=== PATIENT | male | born 1955 | race Caucasian/White ===

== ENCOUNTER → 2019-02-22 | Outpatient (CLI) | payer SELFPAY ==
[2019-02-22 12:32] LABS: Absolute Lymphocyte Count 2.25 X10^3/uL (0.83-4.51); Absolute Neutrophil Count 6.7 X10^3/uL (2.0-7.7); Basophil# 0.03 X10^3/uL; Basophil% 0.3 % (0-1); Eosinophil# 0.15 X10^3/uL; Eosinophils% 1.5 % (0-5); Hematocrit 44.1 % (40-54); Hemoglobin 14.2 g/dL (13.0-16.5); Lymphocyte # 2.25 X10^3/ul (4.0); Lymphocyte % 23.2 % (19-41); Mean Corp Hgb Conc 32.2 g/dL (32-36); Mean Corpuscular Hgb 27.7 pg (27.0-32.0); Mean Corpuscular Volume 86.1 fL (80-94); Mean Platelet Vol. 10.2 fl (6.2-12.0); Monocyte# 0.54 X10^3/uL; Monocyte% 5.6 % (0-10); NRBC Flagged by Analyzer 0 % (0-5); Neutrophil # 6.67 X10^3/uL (2.7-7.7); Platelet Count 215 K/mm3 (150-450); RBC Distribution Width CV 14.1 % (11.6-14.6); RBC Distribution Width SD 43.8 fl (35.1-43.9); Red Blood Count 5.12 M/mm3 (4.6-6.2); White Blood Count 9.7 K/mm3 (4.4-11.0)
[2019-02-22 13:10] LABS: ALB/GLOB Ratio 0.8 RATIO (0.9-2.4); AST(SGOT) 37 U/L (15-37); Alanine Aminotransfer ALT/SGPT 43 U/L (16-61); Albumin, Serum 3.6 g/dL (3.2-5.0); Alkaline Phosphatase 84 U/L (45-117); Anion Gap 8 (5-15); BUN 11 mg/dL (7-18); BUN/Creat Ratio 14.7 RATIO (10-20); Calcium,Total 9.2 mg/dL (8.5-10.1); Chloride 102 mmol/L (98-107); Creatinine, Serum 0.75 mg/dL (0.70-1.30); EST Glomerular Filtration Rate 111 mL/min (>60); Est Glom Filt Rate - Afr Amer 135 mL/min (>60); Globulin 4.3 g/dL (2.2-4.2); Glucose 211 mg/dL (74-106); PSA,Total - Annual Screen 2.23 ng/mL (0.00-4.00); Potassium 3.9 mmol/L (3.5-5.1); Protein, Total 7.9 g/dL (6.4-8.2); Sodium Level 137 mmol/L (136-145); Thyroid Stim Hormone (TSH) 0.84 uIU/mL (0.358-3.74)
[2019-02-22 13:32] LABS: Hepatitis C Antibody Non-Reactive (Nonreactive)
== END | disposition home or self-care (01) ==
PROVIDERS: Family Provider Family Medicine; PCP Family Medicine; Visit Provider Family Medicine Geriatric Medicine
DX: I10 Essential (primary) hypertension (principal); E11.65 Type 2 diabetes mellitus with hyperglycemia; E23.6 Other disorders of pituitary gland; Z12.5 Encounter for screening for malignant neoplasm of prostate; Z13.89 Encounter for screening for other disorder
CPT/HCPCS: 36415; 80053; 84153; 84403; 84443; 85025; 86803; G0103

== ENCOUNTER 2020-10-01 17:46 | Observation (INO) | payer MEDICARE, OTHER, SELFPAY ==
[2020-10-01] VITALS (9 sets, daily range): BP systolic 145–193; BP diastolic 81–103; PULSE 95–111; RESP 16–18; TEMP 36.6–36.9; O2SAT 94–97; BMI 61.7; BMI 60.7
--- NOTE | 2020-10-01 17:54 | EKG12_ITS ---
Test Reason : PALPATATIONS Blood Pressure : / mmHG Vent. Rate : 113 BPM Atrial Rate : 100 BPM P-R Int : 000 ms QRS Dur : 098 ms QT Int : 350 ms P-R-T Axes : 000 027 026 degrees QTc Int : 480 ms Atrial fibrillation Abnormal ECG Confirmed by KEMI STERLING, DEMI ([id number]), editor producer KEVEN MOORE ([id number]) on 10/03/2020 11:48:58 AM Referred By: SUMANTH/CLYDE Confirmed By:DEMI MCMULLEN MD
--- NOTE | 2020-10-01 18:06 | ED.DCSUM_ITS ---
History of Present Illness Chief Complaint: Palpitations Informant: Patient Onset: Days Maximum Severity: Mild Narrative: The patient prevents from his doctor's office with A. 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 fib poor control of hypertension and diabetes he was sent to a PCP who he had not seen in some time that was new seeing that physician today he was found with the above and sent to the emergency department. Patient indicates his COPD CPAP use has been stable, he indicates he has hypertension diabetes he tries to control himself, the A. 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 Past Medical History - Allergies and Home Meds Allergies/Adverse Reactions: Allergies ampicillin Allergy (Verified 10/01/20 17:49) Unknown Penicillins Allergy (Verified 10/01/20 17:49) Unknown Primary Care Physician: Dillan Beach MD [NON-STAFF] - Past Medical History: - - Hypertension diabetes COPD Surgical History: noncontributory Smoking Status: Former smoker - Family History Maternal Family History: Reports: No pertinent history Paternal Family History: Reports: Cancer, No pertinent history Review of Systems General: Denies: Chills, Fever, Sweats Eyes: Denies: Visual changes - bilaterally, Diplopia ENT: Denies: Rhinorrhea, Sore throat Cardiovascular: Reports: Palpitations. Denies: Chest pain Respiratory: Reports: Dyspnea. Denies: Cough, Dyspnea on exertion Gastrointestinal: Denies: Abdominal pain, Nausea, Vomiting, Diarrhea, Melena, Hematochezia Genitourinary: Denies: Dysuria, Hematuria, Frequency Musculoskeletal: Reports: Swelling. Denies: Back pain, Extremity Pain Skin: Denies: Rash, Wounds Neurological: Denies: Headache, Weakness, Numbness Physical Exam Vital Signs/Narrative: Vital Signs Temp Pulse Resp BP Pulse Ox 10/01/20 17:59 102 H 18 172/83 H 95 10/01/20 17:49 98 F 111 H 16 161/101 H 94 General: Well nourished, Well developed, No Acute Distress Head: Normocephalic, Atraumatic Eyes: Perrl, EOMI ENT: Moist mucous membranes, No rhinorrhea Neck: Supple, Nontender Cardiovascular: No murmurs, Irregular, Tachycardia Respiratory: No distress, CTA bilaterally, Chest nontender Abdomen: Soft, Nontender, Nondistended, Normal bowel sounds Back: Nontender, Normal Inspection Extremities: Nontender, Edema Skin: Normal color, No rash Neurological: Alert, Oriented x3, Cranial nerves II-XII grossly intact, Normal Strength, Normal Sensation Psychological: Normal affect, Normal Mood Diagnostic/Tx/Re-eval - Medical Decision Making Patient is a very large gentleman, his BMI is about 62, he is resting company in the bed he has an A. fib RVR 130 on the monitor, his EKG shows A. fib RVR rate 115 s no acute injury of in all the above ED evaluation rate control The patient's ED screening evaluation is generally unremarkable see all those results, 1 view chest x-ray to my review shows some cardiomegaly no acute other abnormalities, just radiology generally concur see those reports Has been treated with does have he remains hemodynamically stable at this time will contact the hospitalist for admission Admit stable Final impression A. fib RVR congestive heart failure peripheral edema ED Disposition - Plan for ED Patient: Diagnosis: A. fib RVR, CHF peripheral edema Referrals: Dillan Beach MD [NON-STAFF] -
[2020-10-01] MEDS: Aspirin 81 MG TAB.CHEW 324 MG PO (18:19)
[2020-10-01] MEDS: dilTIAZem 25 MG/5 ML Vial 20 MG IV BOLUS (18:20)
--- NOTE | 2020-10-01 18:30 | RAD_ITS ---
STUDY: X-RAY CHEST REASON FOR EXAM: Male, 64 years old. Chest pain TECHNIQUE: Frontal view of the chest COMPARISON: None. FINDINGS: The lungs are clear. There are no pleural effusions. There is no pneumothorax. The heart is normal in size. The visualized osseous structures are within normal limits. RAD/Chest 1 View (Portable) IMPRESSION: No acute thoracic pathology. Electronically Signed: Albert Patton MD at 19:08 EDT Tel , Service support ,
[2020-10-01 18:32] LABS: Absolute Lymphocyte Count 1.66 X10^3/uL (0.83-4.51); Absolute Neutrophil Count 4.5 X10^3/uL (2.0-7.7); Basophil# 0.04 X10^3/uL; Basophil% 0.6 % (0-1); Eosinophils% 1.5 % (0-5); Hematocrit 44.1 % (40-54); Hemoglobin 13.8 g/dL (13.0-16.5); Lymphocyte # 1.66 X10^3/ul (0.83-4.51); Lymphocyte % 24.1 % (19-41); Mean Corp Hgb Conc 31.3 g/dL (32-36); Mean Corpuscular Hgb 26.4 pg (27.0-32.0); Mean Corpuscular Volume 84.5 fL (80-94); Mean Platelet Vol. 10.3 fl (6.2-12.0); Monocyte# 0.55 X10^3/uL; NRBC Flagged by Analyzer 0 % (0-5); Neutrophil % 65.2 % (47-70); Platelet Count 167 K/mm3 (150-450); RBC Distribution Width CV 14.7 % (11.6-14.6); RBC Distribution Width SD 44.3 fl (35.1-43.9); Red Blood Count 5.22 M/mm3 (4.6-6.2); White Blood Count 6.9 K/mm3 (4.4-11.0)
[2020-10-01 18:46] LABS: Anion Gap 4 (5-15); BUN 17 mg/dL (7-18); BUN/Creat Ratio 18.2 RATIO (10-20); Calcium,Total 8.9 mg/dL (8.5-10.1); Chloride 101 mmol/L (98-107); Creatinine, Serum 0.94 mg/dL (0.70-1.30); EST Glomerular Filtration Rate 86 mL/min (>60); Est Glom Filt Rate - Afr Amer 104 mL/min (>60); Glucose 314 mg/dL (74-106); Potassium 4.2 mmol/L (3.5-5.1); Sodium Level 136 mmol/L (136-145)
[2020-10-01 18:52] LABS: BNP,B-Type NATRIURETIC PEPTIDE 30.5 pg/mL (0-100)
--- NOTE | 2020-10-01 19:24 | PCM.HP.STD ---
Problem List (1) Afib Status: Acute (2) Bilateral leg edema Status: Chronic (3) Dyspnea on exertion Status: Chronic (4) Pickwickian syndrome Status: Chronic History of Present Illness Date of Admission: 10/01/20 Chief Complaint: Irregular heartbeat The patient is a 64 year old M with a significant medical history of obstructive sleep apnea on BiPAP; hypertension; diabetes mellitus with neuropathy who presents to the ED with irregular heart rhythm found on new PCPs visit on the same day of presentation. No further information is available on this irregularly heart rhythm as it was incidentally identified by PCP. He denies palpitations. Also patient complains of shortness of breath that has been going on for months to years. This shortness of breath is with mild exertion. He reports a bilateral leg edema that has also been going on for months and years. He wears compression stockings for his bilateral leg edema. For the last 2 days he has not been wearing stockings so that he could show his legs to physicians. He has been using BiPAP to sleep and he denies orthopnea. He reported lying on his side to sleep. He denies paroxysmal nocturnal dyspnea. He has been waking up in the middle nines but only to urinate. He reported that per weight taking at his sleep physician's office office he has lost about 22 pounds in about 2 years. Patient moved out of town and returned recently. He went to see Dr. Espinosa load manager/sleep physician; who made him see a new PCP in the city. On this PCP visit was when this irregularly heart rhythm was identified. He reported that he has not been taking his medications for some time now since he did not have a PCP. He report that Dr. Espinosa resumed prescription of metoprolol and losartan for him. At the time of presentation he had taken only metoprolol. Past Medical History Past Medical History (Chronic Problems): Chronic Problems (Last Updated 10/01/20 @ 20:[address] Braden Zapata MD) Bilateral leg edema (Chronic) Dyspnea on exertion (Chronic) Pickwickian syndrome (Chronic) Medical History: Medical History (Last Updated 10/01/20 @ 20:[address] Braden Zapata MD) HTN (hypertension) I10 Allergies ampicillin Allergy (Verified 10/01/20 17:49) Unknown Penicillins Allergy (Verified 10/01/20 17:49) Unknown Home Medications: Ambulatory Orders Medication Instructions Recorded Losartan Potassium [Cozaar] 100 mg PO DAILY 04/04/14 metFORMIN HCl [Glucophage] 1,000 mg PO BIDCM 04/04/14 Amlodipine [Norvasc] 5 mg PO DAILY 10/01/20 Calcium Carbonate/Magnesium Ox 1 tablet PO DAILY 10/01/20 [Super Severo-Mag Tablet] Gabapentin 300 mg PO DAILY 10/01/20 Metoprolol Succinate [Toprol Xl] 25 mg PO DAILY 10/01/20 Multivit-Min/FA/Lycopen/Lutein 1 tablet PO DAILY 10/01/20 [Centrum Silver Men Tablet] Pioglitazone [Actos] 45 mg PO DAILY 10/01/20 Pyridoxine HCl (Vitamin B6) 100 mg PO DAILY 10/01/20 [Vitamin B-6] Tylenol 1,500 - 1,950 mg PO TID PRN PRN 10/01/20 Surgical History: no surgical history Smoking Status: Former smoker - *Family History Maternal History Items: Diabetes, Heart Disease, - - Osteoarthritis Paternal History Items: Cancer, Heart Disease Review of Systems Constitutional: Denies: Chills, Fever, Weight Change HEENT: Denies: Head Aches, Sinus Congestion, Sinus Drainage Cardiovascular: Reports: Edema. Denies: Chest Pain, Palpitations Respiratory: Reports: Shortness of breath upon exertion. Denies: Cough, Shortness of breath at rest, Sputum production Gastrointestinal: Denies: Abdominal Pain, Nausea, Vomiting Genitourinary: Denies: Dysuria Musculoskeletal: Denies: Joint Pain, Joint Tenderness Skin: Denies: Rash, Wounds Neurological: Denies: Numbness, Tingling, Focal weakness Psychiatric: Denies: Anxiety, Depression, Homicidal Ideations, Suicidal Ideations Hematologic/ Lymphatic: Denies: Easy Bruising, Easy Bleeding VTE Information - Inpt Only VTE Present on Admission: No VTE Mechan Device Prophylaxis: None VTE Pharm Prophylaxis ordered?: No Reason prophylaxis not ordered:: Treatment Not Indicated - Started on lovenox for Afib Patient Problems: Active and Suspected Problems (Last Updated 10/01/20 @ 20:[address] Braden Zapata MD) Afib (Acute) - Physical Exam Vitals/I&O's: Vital Signs Temp Pulse Resp BP Pulse Ox 98 F 100 18 172/83 H 94 10/01/20 17:49 10/01/20 18:35 10/01/20 17:59 10/01/20 17:59 10/01/20 18:22 Oxygen Delivery Method Room Air Weight: 184.159 kg Body Mass Index (BMI) 61.7 General: Alert, Oriented x3, Cooperative HEENT: Atraumatic, PERRLA, EOMI, Normocephalic Neck: Supple, No JVD, Negative Carotid Bruits Lungs: Clear to auscultation, Normal air movement Cardiovascular: Normal S1, Normal S2, No murmurs, Irregular Rate Abdomen: Bowel Sounds Present, Soft, Non Tender Extremities: Capillary Refill Less than 3 Seconds, Edema - Bilateral legs Skin: No rashes, No breakdown Musculoskeletal: No Tenderness to Palpation of Joints or Extremities Neurological: Cranial nerves II-XII grossly intact Psych/Mental Status: Normal Affect, Appropriate Laboratory Results 10/01/20 18:10: WBC 6.9, RBC 5.22, Hgb 13.8, Hct 44.1, MCV 84.5, MCH 26.4 L, MCHC 31.3 L, RDW Std Deviation 44.3 H, RDW Coeff of Jada 14.7 H, Plt Count 167, MPV 10.3, Immature Gran % (Auto) 0.600, Neut % (Auto) 65.2, Lymph % (Auto) 24.1, Oldham % (Auto) 8.0, Eos % (Auto) 1.5, Baso % (Auto) 0.6, Absolute Neuts (auto) 4.5, Absolute Lymphs (auto) 1.66, Nucleated RBC % 0 10/01/20 18:10: Sodium 136, Potassium 4.2, Chloride 101, Carbon Dioxide 31.0, Anion Gap 4 L, BUN 17, Creatinine 0.94, Estim Creat Clear Calc 75.80, Est GFR (MDRD) Af Amer 104, Est GFR (MDRD) Non-Af 86, BUN/Creatinine Ratio 18.2, Glucose 314 H, Calcium 8.9, Troponin I < 0.015 10/01/20 18:10: B-Natriuretic Peptide 30.5 Assessment/Plan All Active Problems (Last Updated 10/01/20 @ 20:[address] Braden Zapata MD) Afib (Acute) The patient is a 64 year old M with a significant medical history of obstructive sleep apnea on BiPAP; hypertension; diabetes mellitus with neuropathy who presents emergency to the emergency department with irregular heart rhythm found on new PCPs visit on the same day of presentation; and with chronic dyspnea on exertion; and chronic bilateral leg edema for which he wears compression stockings. Atrial fibrillation Place on PCU on telemetry Inital Cardiac enzymes was negative. Obtain echo [id number] 2 score at least 3 points. Lovenox 1 mg per kilogram subcutaneous every 12 hours Received Cardizem 20 mg bolus IV push x1 at emergency department. Will order as needed metoprolol IV for heart rate of more than 120. Will adjust home metoprolol recently prescribed. Started taking metoprolol succinate 25 mg daily. Will change to metoprolol tartrate 25 mg twice daily. Potassium level was normal. Will check magnesium. Radiologist impression of chest x-ray: No acute thoracic pathology. Actual checks x-ray image was independently interpreted. Chest x-ray with large cardiac silhouette. No infiltrates noted Dyspnea on exertion/bilateral edema/pickwickian syndrome/venous stasis. Lasix 40 mg IV twice daily ordered. Potassium supplementation was on Lasix ordered. Matthew wrap to bilateral legs. Elevate bilateral legs. CMP ordered. Diabetes mellitus with neuropathy Patient with hyperglycemia on presentation Patient has not been on his home diabetic regimen for a while. Will start patient on Lantus insulin; prandial short acting insulin and correction scale short acting insulin. Accu-Chek q. ACH is ordered. Cardiac calorie controlled diet. Hypertension Blood pressure is not within goal Metoprolol as above. He reports receiving a new prescription for losartan that he has not started. Losartan resumed for hypertension and diabetes. Trend blood pressure and adjust blood pressure medications. Morbid Obesity: BMI of 60.7 kg/m?. Complicates care. Lifestyle medication recommended. Obstructive sleep apnea: BiPAP continued DVT prophylaxis On therapeutic dose of Lovenox for atrial fibrillation OBSV E&M: [id number] Initial observation care L3
--- NOTE | 2020-10-01 19:56 | ECHOCS_ITS ---
Reason For Study: AFIB/FLUTTER Procedure This was a 2D Doppler, Color Flow transthoracic echocardiogram. The exam was of poor technical quality due to body habitus. Contrast injection was performed. Exam performed portable in patient room. Left Ventricle Normal LV size. Left ventricular systolic function is normal. The estimated ejection fraction is 55 %. No regional wall motion abnormalities noted. Right Ventricle Normal RV size. Normal systolic function. Atria The left atrium is severely enlarged. The right atrium is moderately enlarged. Tricuspid Valve Normal tricuspid valve. Mild (1+) tricuspid valve insufficiency. Pulmonary artery systolic pressure is 25 mmHg. Great Vessels Normal aortic root. The pulmonary artery is normal size. Normal inferior vena cava. Pericardium/Pleural No pericardial effusion. Medication Diluted definity 5.0ml given slow IV push to enhance endocardial definition. MMode/2D Measurements & Calculations Ao root diam: 3.5 cm LAV(MOD-bp): 131.3 ml LA A4 area: 34.2 cm2 LAV(MOD-bp) Indexed: 47.9 ml/m2 LAV(MOD-sp2): 127.8 ml LAV(MOD-sp4): 125.4 ml LA dimension(2D): 5.9 cm RA A4 area: 28.9 cm2 Time Measurements MV dec time: 0.22 sec Doppler Measurements & Calculations MV E max diane: 103.1 cm/sec Ao V2 max: 146.8 cm/sec LV V1 max: 74.8 cm/sec Ao max P.6 mmHg LV V1 max P.3 mmHg TR max diane: 232.9 cm/sec TR max P.9 mmHg ECHO/Echo Complete W/ Contrast Interpretation Summary Normal LV size. Left ventricular systolic function is normal. The estimated ejection fraction is 55 %. The left atrium is severely enlarged. The right atrium is moderately enlarged. Contrast injection was performed. Ordering Physician: Braden Zapata Referring Physician: MOLLY SCHAEFFER Performed By: Selma Arce, KATE, RVT
[2020-10-01] MEDS: Metoprolol Tartrate 25 MG Tablet PO (21:37)
[2020-10-01] MEDS: Furosemide 40 MG/4 ML Vial IV (21:37)
[2020-10-01] MEDS: 0.9% Saline Lock 10 ML Syringe IV (21:37)
[2020-10-01] MEDS: Insulin Lispro 100 UNIT/ML INSULN.PEN SC (21:38)
[2020-10-01 21:40] LABS: Bedside Glucose 287 mg/dL (70-110)
[2020-10-01] MEDS: Enoxaparin 100 MG/ML Syringe 180 MG SC (21:42)
[2020-10-02] VITALS (8 sets, daily range): BP systolic 161–166; BP diastolic 68–86; PULSE 77–98; RESP 15–18; TEMP 36.6–36.8; O2SAT 95–100
[2020-10-02 05:56] LABS: ALB/GLOB Ratio 0.8 RATIO (0.9-2.4); AST(SGOT) 26 U/L (15-37); Alanine Aminotransfer ALT/SGPT 33 U/L (16-61); Albumin, Serum 2.9 g/dL (3.2-5.0); Alkaline Phosphatase 109 U/L (45-117); Anion Gap 4 (5-15); BUN 12 mg/dL (7-18); BUN/Creat Ratio 17.6 RATIO (10-20); Calcium,Total 8.5 mg/dL (8.5-10.1); Chloride 101 mmol/L (98-107); Creatinine, Serum 0.68 mg/dL (0.70-1.30); EST Glomerular Filtration Rate 124 mL/min (>60); Est Glom Filt Rate - Afr Amer 150 mL/min (>60); Estimated Creatinine Clearance 104.78 ml/min; Globulin 3.8 g/dL (2.2-4.2); Glucose 269 mg/dL (74-106); Magnesium 1.8 mg/dL (1.6-2.6); Potassium 3.9 mmol/L (3.5-5.1); Protein, Total 6.7 g/dL (6.4-8.2); Sodium Level 136 mmol/L (136-145); Thyroid Stim Hormone (TSH) 1.04 uIU/mL (0.358-3.74)
[2020-10-02] MEDS: Insulin Lispro 100 UNIT/ML INSULN.PEN SC ×4 (08:49→11:26)
[2020-10-02 08:56] LABS: Bedside Glucose 265 mg/dL (70-110)
[2020-10-02] MEDS: Potassium Chloride Oral Tablet 20 MEQ 40 MEQ PO (09:22)
[2020-10-02] MEDS: Multivitamins,Ther W-Minerals Tablet 1 TABLET PO (09:22)
[2020-10-02] MEDS: Losartan Potassium 100 MG Tablet PO (09:22)
[2020-10-02] MEDS: Enoxaparin 100 MG/ML Syringe 180 MG SC (09:22)
[2020-10-02] MEDS: Pyridoxine HCl 100 MG Tablet PO (09:22)
[2020-10-02] MEDS: Metoprolol Tartrate 25 MG Tablet PO (09:22)
[2020-10-02] MEDS: Calcium Carbonate 500 MG Tablet PO (09:31)
[2020-10-02] MEDS: Furosemide 40 MG/4 ML Vial IV (09:31)
[2020-10-02] MEDS: 0.9% Saline Lock 10 ML Syringe IV (09:31)
[2020-10-02] MEDS: Metoprolol(XL)Succ 25 MG Tablet PO (11:21)
[2020-10-02 11:30] LABS: Bedside Glucose 342 mg/dL (70-110)
--- NOTE | 2020-10-02 12:38 | PCM.PN.HOSP ---
Patient Problems: Active and Suspected Problems (Last Updated 10/01/20 @ 20:[address] Braden Zapata MD) Afib (Acute) Subjective: Patient is a 64-year-old male who is lying in bed chronically short of breath, alert and oriented 3. Patient endorses chronic shortness of breath as well as chronic leg swelling. Patient usually wears compression stockings at home however stopped wearing them prior to admission to demonstrate the severity of his leg congestion. Patient denies chest pain, palpitations, fever, chills, N/V/D. Vitals/I&O's: Vital Signs Temp Pulse Resp BP Pulse Ox 98.2 F 97 18 166/86 H 95 10/02/20 09:20 10/02/20 11:21 10/02/20 09:20 10/02/20 09:20 10/02/20 09:20 Oxygen Delivery Method Room Air Weight: 401 lb 14.443 oz Body Mass Index (BMI) 60.7 Intake and Output for Last 24 Hours 09/30/20 10/01/20 10/02/20 23:59 23:59 23:59 Intake Total 360 / 360 Balance 360 / 360 General: Alert, Oriented x3, Cooperative HEENT: Atraumatic, PERRLA, EOMI, Normocephalic Neck: Supple, No JVD, Negative Carotid Bruits Lungs: Diminished, Short of Breath Cardiovascular: Regular rate, No murmurs Abdomen: Distended, Obese, Hernia - Umbilical hernia noted Extremities: Diminished Peripheral Pulses, Edema Skin: - - Discoloration and dryness of the feet noted bilaterally Musculoskeletal: No Tenderness to Palpation of Joints or Extremities Neurological: Cranial nerves II-XII grossly intact Psych/Mental Status: Normal Affect, Appropriate Laboratory Results 10/01/20 18:10: WBC 6.9, RBC 5.22, Hgb 13.8, Hct 44.1, MCV 84.5, MCH 26.4 L, MCHC 31.3 L, RDW Std Deviation 44.3 H, RDW Coeff of Jada 14.7 H, Plt Count 167, MPV 10.3, Immature Gran % (Auto) 0.600, Neut % (Auto) 65.2, Lymph % (Auto) 24.1, Dundy % (Auto) 8.0, Eos % (Auto) 1.5, Baso % (Auto) 0.6, Absolute Neuts (auto) 4.5, Absolute Lymphs (auto) 1.66, Nucleated RBC % 0 10/01/20 18:10: Sodium 136, Potassium 4.2, Chloride 101, Carbon Dioxide 31.0, Anion Gap 4 L, BUN 17, Creatinine 0.94, Estim Creat Clear Calc 75.80, Est GFR (MDRD) Af Amer 104, Est GFR (MDRD) Non-Af 86, BUN/Creatinine Ratio 18.2, Glucose 314 H, Calcium 8.9, Troponin I < 0.015 10/01/20 18:10: B-Natriuretic Peptide 30.5 10/01/20 21:33: POC Glucose 287 H 10/02/20 05:06: Sodium 136, Potassium 3.9, Chloride 101, Carbon Dioxide 31.0, Anion Gap 4 L, BUN 12, Creatinine 0.68 L, Estim Creat Clear Calc 104.78, Est GFR (MDRD) Af Amer 150, Est GFR (MDRD) Non-Af 124, BUN/Creatinine Ratio 17.6, Glucose 269 H, Calcium 8.5, Magnesium 1.8, Total Bilirubin 0.50, AST 26, ALT 33, Alkaline Phosphatase 109, Total Protein 6.7, Albumin 2.9 L, Globulin 3.8, Albumin/Globulin Ratio 0.8 L, TSH 1.04 10/02/20 08:48: POC Glucose 265 H 10/02/20 11:25: POC Glucose 342 H Current Medications Acetaminophen (Acetaminophen 325 Mg Tablet) 650 mg PO Q6H PRN PRN PRN Reason: Pain Score 1-10/Temp > 100.7 F Calcium Carbonate (Calcium Carbonate 500 Mg Tablet) 500 mg PO DAILYCM [facility] Last Admin: 10/02/20 09:31 Dose: 500 mg Documented by: Dextrose (Dextrose 50%-Water 25 Gm/50 Ml Disp.Syrin) 0 gm IV X1 PRN; Protocol PRN Reason: Hypoglycemia Enoxaparin Sodium (Enoxaparin 100 Mg/Ml Syringe) 180 mg SC Q12 [facility] Last Admin: 10/02/20 09:22 Dose: 180 mg Documented by: Furosemide (Furosemide 40 Mg/4 Ml Vial) 40 mg IV BID@1000,1800 [facility] Last Admin: 10/02/20 09:31 Dose: 40 mg Documented by: Glucagon (Glucagon 1 Mg/Ml Syringe) 1 mg IM .X1 PRN PRN Reason: Hypoglycemia Insulin Glargine (Insulin Glargine 100 Units/Ml Pen) 20 units SC QHS [facility] Last Admin: 10/01/20 21:37 Dose: 20 units Documented by: Insulin Human Lispro (Insulin Lispro 100 Unit/Ml Insuln.Pen) 0 unit SC ACHS [facility]; Protocol Last Admin: 10/02/20 11:25 Dose: 8 units Documented by: Insulin Human Lispro (Insulin Lispro 100 Unit/Ml Insuln.Pen) 5 unit SC BREAKFAST [facility] Last Admin: 10/02/20 08:49 Dose: 5 u Documented by: Insulin Human Lispro (Insulin Lispro 100 Unit/Ml Insuln.Pen) 5 unit SC DINNER [facility] Insulin Human Lispro (Insulin Lispro 100 Unit/Ml Insuln.Pen) 5 unit SC LUNCH [facility] Last Admin: 10/02/20 11:26 Dose: 5 u Documented by: Losartan Potassium (Losartan Potassium 100 Mg Tablet) 100 mg PO DAILY [facility] Last Admin: 10/02/20 09:22 Dose: 100 mg Documented by: Metoprolol Succinate (Metoprolol(Xl)Succ 50 Mg Tablet) 50 mg PO DAILY [facility] Metoprolol Tartrate (Metoprolol Tartrate 5 Mg/5 Ml Vial) 5 mg IV Q5M PRN PRN Reason: HR > 120 Multivitamins/Minerals (Multivitamins,Ther W-Minerals Tablet) [facility] Admin: 10/02/20 09:22 Dose: 1 tablet Documented by: Ondansetron HCl (Ondansetron 4 Mg/2 Ml Vial) 4 mg IV Q8H PRN PRN PRN Reason: NAUSEA/VOMITING Potassium Chloride (Potassium Chloride Oral Tablet 20 Meq) [facility] Last Admin: 10/02/20 09:22 Dose: 40 meq Documented by: Pyridoxine HCl (Pyridoxine Hcl 100 Mg Tablet) 100 mg PO DAILY [facility] Last Admin: 10/02/20 09:22 Dose: 100 mg Documented by: Senna/Docusate Sodium (Senna/Docusate Sodium 1 Tablet) 2 tablet PO BID PRN PRN PRN Reason: Constipation Sodium Chloride (0.9% Saline Lock 10 Ml Syringe) 10 - 40 ml IV UD PRN PRN Reason: SALINE FLUSH Last Admin: 10/02/20 09:31 Dose: 10 ml Documented by: STROKE Vital Signs/Narrative: Vital Signs Temp Pulse Resp BP Pulse Ox 10/02/20 11:21 97 10/02/20 09:22 98 10/02/20 09:20 98.2 F 98 18 166/86 H 95 Medical Necessity - Tobacco Use Smoking Status: Never smoker Tobacco Use: Non-smoker Assessment/Plan All Active Problems (Last Updated 10/01/20 @ 20:[address] Braden Zapata MD) Afib (Acute) Patient is a 64-year-old male who presented to the ED on 10/01/2020 on referral from his PCP due to new onset A. fib . Patient also displayed shortness of breath and leg swelling that are chronic for the patient. Echocardiogram obtained today revealed normal left ventricular size, normal left ventricular systolic function, an estimated EF of 55%, severely enlarged left atrium and moderately enlarged right atrium. 1) A-Fib (new onset) Echo results above. Metoprolol succinate 25 mg given today, 50mg will be initiated tomorrow. [id number] 2 score 3 points, not on anticoagulation at home, currently being anticoagulated on Lovenox. 2) Dyspnea on exertion/bilateral edema Continues to complain of shortness of breath and bilateral lower extremity swelling. Continue on Lasix 40 mg IV twice daily. Matthew wraps applied to legs bilaterally. BNP and troponins not elevated. Chest x-ray demonstrates enlarged cardiac silhouette. 3) DM2 w/ Neuropathy POC glucose 342. Not compliant with home diabetic regiment. Continue on Lantus insulin, prandial short acting insulin and correction scale short acting insulin. Continue Accu-Cheks. Calorie controlled diet ordered. 4) Hypertension Continue on metoprolol and losartan. BP stable from admission. Continue to monitor. 5) Obesity BMI; 60.7 kg/m?. Lifestyle modifications recommended DVT prophylaxis - SD Lovenox Patient seen by Bernabe Adams PA-C, under the supervision of Dr. Spain.
--- NOTE | 2020-10-02 13:41 | DCINST_ITS ---
- Discharge Diagnoses Current Active Problems: Current Active and Chronic Problems (Last Updated 10/01/20 @ 20:[address] Braden Zapata MD) Afib (Acute) Bilateral leg edema (Chronic) Dyspnea on exertion (Chronic) Pickwickian syndrome (Chronic) You will use the following diet at home:: No restrictions Your food should be the consistency of: Regular Your liquids should be the consistency of: Regular/Thin Discharge Activity: Return to Normal Activity Allergies/Adverse Reactions: Allergies ampicillin Allergy (Verified 10/01/20 17:49) Unknown Penicillins Allergy (Verified 10/01/20 17:49) Unknown Medications to take at Discharge Losartan Potassium [Cozaar] 100 mg PO DAILY 04/04/14 metFORMIN HCl [Glucophage] 1,000 mg PO BIDCM 04/04/14 Amlodipine [Norvasc] 5 mg PO DAILY 10/01/20 Calcium Carbonate/Magnesium Ox [Super Severo-Mag Tablet] 1 tablet PO DAILY 10/01/20 Gabapentin 300 mg PO DAILY 10/01/20 Multivit-Min/FA/Lycopen/Lutein [Centrum Silver Men Tablet] 1 tablet PO DAILY 10/01/20 Pioglitazone [Actos] 45 mg PO DAILY 10/01/20 Pyridoxine HCl (Vitamin B6) [Vitamin B-6] 100 mg PO DAILY 10/01/20 Tylenol 1,500 - 1,950 mg PO TID PRN PRN 10/01/20 Apixaban [Eliquis] 5 mg PO BID #30 tablet 10/02/20 Metoprolol(XL)Succ [Toprol Xl (Beta Sal)] 50 mg PO DAILY #60 tab 10/02/20 The following prescriptions were given: Apixaban [Eliquis] 5 mg PO BID #30 tablet Transmission Status: Pending to [facility]/pharmacy #[id number] Metoprolol(XL)Succ [Toprol Xl (Beta Sal)] 50 mg PO DAILY #60 tab Transmission Status: Pending to [facility]/pharmacy #[id number] Primary Care Physician: Dillan Beach MD [NON-STAFF] - Please follow up with your Primary Care Physician in: Within the next 2 weeks Test Results: Test results from this visit will be discussed in further detail at your follow- up appointment, if applicable. Please Follow Up With: [facility] - [phone] When: Within the next 2 weeks Proposed Discharge Date: 10/02/20
--- NOTE | 2020-10-02 13:43 | PCM.DC.SUM ---
<Molly Adams - Last Filed: 10/02/20 13:43> Discharge Date and Diagnosis - Problem List Patient Problems: Active and Suspected Problems (Last Updated 10/01/20 @ 20:[address] Braden Zapata MD) Afib (Acute) Date of Admission: 10/01/20 Date of Discharge: 10/02/20 - Primary Discharge Diagnosis Acute Problems: Active Problems (Last Updated 10/01/20 @ 20:[address] Braden Zapata MD) Afib (Acute) - Secondary Discharge Diagnosis Chronic Problems: Chronic Problems (Last Updated 10/01/20 @ 20:[address] Braden Zapata MD) Bilateral leg edema (Chronic) Dyspnea on exertion (Chronic) Pickwickian syndrome (Chronic) Hospital Course and Treatment Imaging Results: Clinical Impression(s) from Imaging Studies Chest X-Ray 10/01/20 18:30 IMPRESSION: No acute thoracic pathology. Electronically Signed: Albert Patton MD at 19:08 EDT Tel , Service support , Echocardiogram 10/01/20 19:56 Interpretation Summary Normal LV size. Left ventricular systolic function is normal. The estimated ejection fraction is 55 %. The left atrium is severely enlarged. The right atrium is moderately enlarged. Contrast injection was performed. Ordering Physician: Braden Zapata Referring Physician: MOLLY SCHAEFFER Performed By: Selma Arce, KATE, RVT Procedures: 2-D Echocardiogram Summary of Care Provided: Patient is a 64-year-old male who presented to the ED on 10/01/2020 on referral from his PCP due to new onset A. fib . Patient also displayed shortness of breath and leg swelling that are chronic for the patient. Echocardiogram obtained today revealed normal left ventricular size, normal left ventricular systolic function, an estimated EF of 55%, severely enlarged left atrium and moderately enlarged right atrium. Patient can follow-up with cardiology as an outpatient. Patient will be discharged today. 1) A-Fib (new onset) Echo results above. Metoprolol succinate 25 mg given today, 50mg will be initiated on discharge. [id number] 2 score 3 points, not on anticoagulation at home, will be initiated on Eliquis 5 mg p.o. twice daily at discharge. 2) Dyspnea on exertion/bilateral edema Continues to complain of shortness of breath and bilateral lower extremity swelling. Matthew wraps applied to legs bilaterally. BNP and troponins not elevated. Chest x-ray demonstrates enlarged cardiac silhouette. Follow-up with cardiology as an outpatient. 3) DM2 w/ Neuropathy POC glucose 342. Not compliant with home diabetic regiment. Encourage compliance with home Metformin on discharge. Gabapentin continued on discharge. Follow-up with primary care provider within the next 2 weeks. 4) Hypertension Continue home regimen of metoprolol and losartan. 5) Obesity BMI; 60.7 kg/m?. Lifestyle modifications recommended Patient seen by Molly Adams PA-C, under the supervision of Dr. Spain. Patient Problems: Active and Suspected Problems (Last Updated 10/01/20 @ 20:[address] Braden Zapata MD) Afib (Acute) Subjective: Patient is a 64-year-old male who is lying in bed chronically short of breath, alert and oriented 3. Patient endorses chronic shortness of breath as well as chronic leg swelling. Patient usually wears compression stockings at home however stopped wearing them prior to admission to demonstrate the severity of his leg congestion. Patient denies chest pain, palpitations, fever, chills, N/V/D. Objective: Clinical Impression(s) from Imaging Studies Chest X-Ray 10/01/20 18:30 IMPRESSION: No acute thoracic pathology. Electronically Signed: Albert Patton MD at 19:08 EDT Tel , Service support , Echocardiogram 10/01/20 19:56 Interpretation Summary Normal LV size. Left ventricular systolic function is normal. The estimated ejection fraction is 55 %. The left atrium is severely enlarged. The right atrium is moderately enlarged. Contrast injection was performed. Ordering Physician: Braden Zapata Referring Physician: MOLLY SCHAEFFER Performed By: Selma Arce, KATE, RVT - Physical Exam Vitals/I&O's: Vital Signs Temp Pulse Resp BP Pulse Ox 98.2 F 97 18 166/86 H 95 10/02/20 09:20 10/02/20 11:21 10/02/20 09:20 10/02/20 09:20 10/02/20 09:20 Oxygen Delivery Method Room Air Weight: 401 lb 14.443 oz Body Mass Index (BMI) 60.7 Intake and Output for Last 24 Hours 09/30/20 10/01/20 10/02/20 23:59 23:59 23:59 Intake Total 360 / 360 640 / 640 Balance 360 / 360 640 / 640 General: Alert, Oriented x3, Cooperative HEENT: Atraumatic, PERRLA, EOMI, Normocephalic Neck: Supple, No JVD, Negative Carotid Bruits Lungs: Diminished, Short of Breath Cardiovascular: Regular rate, No murmurs Abdomen: Distended, Obese, Hernia - Umbilical hernia noted Extremities: Diminished Peripheral Pulses, Edema Skin: - - Discoloration and dryness of the feet noted bilaterally Musculoskeletal: No Tenderness to Palpation of Joints or Extremities Neurological: Cranial nerves II-XII grossly intact Psych/Mental Status: Normal Affect, Appropriate Laboratory Results 10/01/20 18:10: WBC 6.9, RBC 5.22, Hgb 13.8, Hct 44.1, MCV 84.5, MCH 26.4 L, MCHC 31.3 L, RDW Std Deviation 44.3 H, RDW Coeff of Jada 14.7 H, Plt Count 167, MPV 10.3, Immature Gran % (Auto) 0.600, Neut % (Auto) 65.2, Lymph % (Auto) 24.1, [place] % (Auto) 8.0, Eos % (Auto) 1.5, Baso % (Auto) 0.6, Absolute Neuts (auto) 4.5, Absolute Lymphs (auto) 1.66, Nucleated RBC % 0 10/01/20 18:10: Sodium 136, Potassium 4.2, Chloride 101, Carbon Dioxide 31.0, Anion Gap 4 L, BUN 17, Creatinine 0.94, Estim Creat Clear Calc 75.80, Est GFR (MDRD) Af Amer 104, Est GFR (MDRD) Non-Af 86, BUN/Creatinine Ratio 18.2, Glucose 314 H, Calcium 8.9, Troponin I < 0.015 10/01/20 18:10: B-Natriuretic Peptide 30.5 10/01/20 21:33: POC Glucose 287 H 10/02/20 05:06: Sodium 136, Potassium 3.9, Chloride 101, Carbon Dioxide 31.0, Anion Gap 4 L, BUN 12, Creatinine 0.68 L, Estim Creat Clear Calc 104.78, Est GFR (MDRD) Af Amer 150, Est GFR (MDRD) Non-Af 124, BUN/Creatinine Ratio 17.6, Glucose 269 H, Calcium 8.5, Magnesium 1.8, Total Bilirubin 0.50, AST 26, ALT 33, Alkaline Phosphatase 109, Total Protein 6.7, Albumin 2.9 L, Globulin 3.8, Albumin/Globulin Ratio 0.8 L, TSH 1.04 10/02/20 08:48: POC Glucose 265 H 10/02/20 11:25: POC Glucose 342 H Current Medications Acetaminophen (Acetaminophen 325 Mg Tablet) 650 mg PO Q6H PRN PRN PRN Reason: Pain Score 1-10/Temp > 100.7 F Calcium Carbonate (Calcium Carbonate 500 Mg Tablet) [facility] Last Admin: 10/02/20 09:31 Dose: 500 mg Documented by: Dextrose (Dextrose 50%-Water 25 Gm/50 Ml Disp.Syrin) 0 gm IV X1 PRN; Protocol PRN Reason: Hypoglycemia Enoxaparin Sodium (Enoxaparin 100 Mg/Ml Syringe) 180 mg SC Q12 [facility] Last Admin: 10/02/20 09:22 Dose: 180 mg Documented by: Furosemide (Furosemide 40 Mg/4 Ml Vial) 40 mg IV BID@1000,1800 [facility] Last Admin: 10/02/20 09:31 Dose: 40 mg Documented by: Glucagon (Glucagon 1 Mg/Ml Syringe) 1 mg IM .X1 PRN PRN Reason: Hypoglycemia Insulin Glargine (Insulin Glargine 100 Units/Ml Pen) 20 units SC QHS [facility] Last Admin: 10/01/20 21:37 Dose: 20 units Documented by: Insulin Human Lispro (Insulin Lispro 100 Unit/Ml Insuln.Pen) 0 unit SC ACHS [facility]; Protocol Last Admin: 10/02/20 11:25 Dose: 8 units Documented by: Insulin Human Lispro (Insulin Lispro 100 Unit/Ml Insuln.Pen) 5 unit SC BREAKFAST [facility] Last Admin: 10/02/20 08:49 Dose: 5 u Documented by: Insulin Human Lispro (Insulin Lispro 100 Unit/Ml Insuln.Pen) 5 unit SC DINNER [facility] Insulin Human Lispro (Insulin Lispro 100 Unit/Ml Insuln.Pen) 5 unit SC LUNCH [facility] Last Admin: 10/02/20 11:26 Dose: 5 u Documented by: Losartan Potassium (Losartan Potassium 100 Mg Tablet) 100 mg PO DAILY [facility] Last Admin: 10/02/20 09:22 Dose: 100 mg Documented by: Metoprolol Succinate (Metoprolol(Xl)Succ 50 Mg Tablet) 50 mg PO DAILY [facility] Metoprolol Tartrate (Metoprolol Tartrate 5 Mg/5 Ml Vial) 5 mg IV Q5M PRN PRN Reason: HR > 120 Multivitamins/Minerals (Multivitamins,Ther W-Minerals Tablet) [facility] tablet [facility] Last Admin: 10/02/20 09:22 Dose: 1 tablet Documented by: Ondansetron HCl (Ondansetron 4 Mg/2 Ml Vial) 4 mg IV Q8H PRN PRN PRN Reason: NAUSEA/VOMITING Potassium Chloride (Potassium Chloride Oral Tablet 20 Meq) 40 meq [facility] Last Admin: 10/02/20 09:22 Dose: 40 meq Documented by: Pyridoxine HCl (Pyridoxine Hcl 100 Mg Tablet) 100 mg PO DAILY [facility] Last Admin: 10/02/20 09:22 Dose: 100 mg Documented by: Senna/Docusate Sodium (Senna/Docusate Sodium 1 Tablet) 2 tablet PO BID PRN PRN PRN Reason: Constipation Sodium Chloride (0.9% Saline Lock 10 Ml Syringe) 10 - 40 ml IV UD PRN PRN Reason: SALINE FLUSH Last Admin: 10/02/20 09:31 Dose: 10 ml Documented by: Discharge Diet: No Restrictions Discharge Activity: Return to Normal Activity Home Medications: Medications to take at Discharge Losartan Potassium [Cozaar] 100 mg PO DAILY 04/04/14 metFORMIN HCl [Glucophage] 1,000 mg PO BIDCM 04/04/14 Amlodipine [Norvasc] 5 mg PO DAILY 10/01/20 Calcium Carbonate/Magnesium Ox [Super Severo-Mag Tablet] 1 tablet PO DAILY 10/01/20 Gabapentin 300 mg PO DAILY 10/01/20 Multivit-Min/FA/Lycopen/Lutein [Centrum Silver Men Tablet] 1 tablet PO DAILY 10/01/20 Pioglitazone [Actos] 45 mg PO DAILY 10/01/20 Pyridoxine HCl (Vitamin B6) [Vitamin B-6] 100 mg PO DAILY 10/01/20 Tylenol 1,500 - 1,950 mg PO TID PRN PRN 10/01/20 Apixaban [Eliquis] 5 mg PO BID #30 tablet 10/02/20 Metoprolol(XL)Succ [Toprol Xl (Beta Sal)] 50 mg PO DAILY #60 tab 10/02/20 Following Prescriptions Were Given to Patient: Apixaban [Eliquis] 5 mg PO BID #30 tablet Transmission Status: Received by [facility]/pharmacy #[id number] Metoprolol(XL)Succ [Toprol Xl (Beta Sal)] 50 mg PO DAILY #60 tab Transmission Status: Received by [facility]/pharmacy #[id number] Primary Care Physician: Dillan Beach MD [NON-STAFF] - Please follow up with your Primary Care Physician in: Within the next 2 weeks Please Follow Up With: [facility] - [phone] When: Within the next 2 weeks Disposition: Home Minutes spent on discharge:: 35 Patient Condition:: Stable Medical Necessity - Tobacco Use Smoking Status: Never smoker Tobacco Use: Non-smoker Meaningful Use Info Meaningful Use Diagnoses (Choose all that apply): None applicable <Julee Spain - Last Filed: 10/02/20 17:32> Discharge Date and Diagnosis - Primary Discharge Diagnosis Acute Problems: Active Problems (Last Updated 10/01/20 @ 20:[address] Braden Zapata MD) Afib (Acute) - Secondary Discharge Diagnosis Chronic Problems: Chronic Problems (Last Updated 10/01/20 @ 20:[address] Braden Zapata MD) Bilateral leg edema (Chronic) Dyspnea on exertion (Chronic) Pickwickian syndrome (Chronic) Hospital Course and Treatment None Summary of Care Provided: I agree with the above and the following is representation my independent history and physical examination. Mr. Zaragoza is a 64 year old morbidly obese WM who presented to [facility] emergency department on 10/01/2020 as a referral from his primary care physician for new onset atrial fibrillation. The patient reported that he had been feeling okay but upon the recommendation of his referral and information aide based on a rapid heart rate he went to his primary care physician and that is where atrial fibrillation was noted. Heart rates in the emergency department were in the low 100s and he was noted to be hypertensive with blood pressure of 161/101. Oxygen saturations were 94 to 95% on room air. Upon admission he was initiated on metoprolol succinate 25 mg and started on Lovenox. He had improved rate control but still had intermittent heart rates in the low 100s and therefore his metoprolol dose was increased to 50 mg daily. After the extra 25 mg of metoprolol his heart rates were anywhere from 77-98. He was converted from Lovenox to Eliquis after his echocardiogram was obtained and noted no significant valvular disease. His echo showed an EF of 55% with biatrial enlargement (severe left atrium, moderate right atrium). A TSH was obtained and was within normal limits. Given his atrial enlargement, rhythm control will most likely be difficult and given the fact his rate was controlled well on metoprolol he was asymptomatic and the fact that he had no significant wall motion abnormality on echo he was discharged home. He was given prescriptions for metoprolol 50 mg daily and Eliquis 5 mg twice daily with 1 refill for each. He has a history of sleep apnea for which she states he is compliant with his CPAP and I have encouraged continued use of this. He is to follow-up with his primary care physician in 1 week and obtain a cardiology appointment at [facility] within 2 to 4 weeks. Discharge diagnoses New onset Juarez. jose [id number] Diabetic neuropathy Hypertension obstructive sleep apnea Suspected pulmonary artery hypertension Super morbid obesity Discharge time greater than 35 minutes [] Subjective: Mr. Zaragoza states that he is feeling well this morning. He has chronic shortness of breath which is baseline and chronic lower extremity edema but no acute changes. He states he has not noticed any fast heart rates or palpitations and presented to the emergency department because he was told to by his primary care physician. He remains in atrial fibrillation but is rate is fairly well controlled. - Physical Exam Vitals/I&O's: Vital Signs Temp Pulse Resp BP Pulse Ox 98.2 F 97 18 166/86 H 95 10/02/20 09:20 10/02/20 11:21 10/02/20 09:20 10/02/20 09:20 10/02/20 09:20 Oxygen Delivery Method Room Air Weight: 182.3 kg Body Mass Index (BMI) 60.7 Intake and Output for Last 24 Hours 09/30/20 10/01/20 10/02/20 23:59 23:59 23:59 Intake Total 360 / 360 640 / 640 Balance 360 / 360 640 / 640 General: Alert, Oriented x3, Cooperative, No apparent distress, Well developed, Well nourished, - - Super morbidly obese white male, appears older than stated age, nontoxic, appears comfortable HEENT: Atraumatic, PERRLA, EOMI, Normocephalic, EAC Clear Oral: Moist Mucosa, No Gingival or Mucosal Lesions/ Ulcerations, - - Dentition, no thrush, Mallampati 3-4 Neck: Supple, No JVD, Negative Carotid Bruits, Trachea Midline, Thyroid Normal Size and Texture Lungs: Clear to auscultation, Normal air movement, No rhonchi, No wheeze, No rales, - - Distant secondary to body habitus Cardiovascular: Regular rate, Normal S1, Normal S2, No murmurs, No Ectopic Activity, No rub noted, No Gallop, - - Irregular rhythm Abdomen: Bowel Sounds Present, Soft, Non Tender, Non-Distended, Obese, Hernia Extremities: No clubbing, No cyanosis, Capillary Refill Less than 3 Seconds, Edema - Bilateral lower extremity pitting edema appears chronic, Peripheral Pulses Normal Skin: No rashes, No breakdown, - - Discoloration and dryness of the feet noted bilaterally, chronic bilateral lower extremity venous stasis changes Musculoskeletal: No Tenderness to Palpation of Joints or Extremities, No Muscle Wasting, Arthritic Changes Neurological: Cranial nerves II-XII grossly intact, Neuro grossly intact, - - Bilateral lower extremity neuropathy Psych/Mental Status: Normal Affect, Appropriate Laboratory Results 10/01/20 18:10: WBC 6.9, RBC 5.22, Hgb 13.8, Hct 44.1, MCV 84.5, MCH 26.4 L, MCHC 31.3 L, RDW Std Deviation 44.3 H, RDW Coeff of Jada 14.7 H, Plt Count 167, MPV 10.3, Immature Gran % (Auto) 0.600, Neut % (Auto) 65.2, Lymph % (Auto) 24.1, [place] % (Auto) 8.0, Eos % (Auto) 1.5, Baso % (Auto) 0.6, Absolute Neuts (auto) 4.5, Absolute Lymphs (auto) 1.66, Nucleated RBC % 0 10/01/20 18:10: Sodium 136, Potassium 4.2, Chloride 101, Carbon Dioxide 31.0, Anion Gap 4 L, BUN 17, Creatinine 0.94, Estim Creat Clear Calc 75.80, Est GFR (MDRD) Af Amer 104, Est GFR (MDRD) Non-Af 86, BUN/Creatinine Ratio 18.2, Glucose 314 H, Calcium 8.9, Troponin I < 0.015 10/01/20 18:10: B-Natriuretic Peptide 30.5 10/01/20 21:33: POC Glucose 287 H 10/02/20 05:06: Sodium 136, Potassium 3.9, Chloride 101, Carbon Dioxide 31.0, Anion Gap 4 L, BUN 12, Creatinine 0.68 L, Estim Creat Clear Calc 104.78, Est GFR (MDRD) Af Amer 150, Est GFR (MDRD) Non-Af 124, BUN/Creatinine Ratio 17.6, Glucose 269 H, Calcium 8.5, Magnesium 1.8, Total Bilirubin 0.50, AST 26, ALT 33, Alkaline Phosphatase 109, Total Protein 6.7, Albumin 2.9 L, Globulin 3.8, Albumin/Globulin Ratio 0.8 L, TSH 1.04 10/02/20 08:48: POC Glucose 265 H 10/02/20 11:25: POC Glucose 342 H Inpatient E&M: 08047 Disch Hosp
--- NOTE | 2020-10-02 14:02 | CASEMGMT ---
Pt to be sent home on Eliquis at discharge and med [facility] previously. Call to [facility] and per tech, pt does not have insurance listed on file. Per pt, he just started to use [facility]. Pt states has prescription coverage and aware to provide card to [facility], voices understanding. Pt provided Eliquis 30 day free trial card with instructions, voices understanding. Pt aware to notify cardiology for any further cost concerns with Eliquis, voices understanding. SStdavid RN CM
--- NOTE | 2020-10-02 14:52 | PHA.DC.MC ---
Pharmacy Service has performed discharge medication reconciliation and counseling for this patient. 1. APIXABAN 5MG PO BID The patient's discharge medication list was reviewed for discrepancies and discrepancies were resolved. Home Medications Losartan Potassium [Cozaar] 100 mg PO DAILY 04/04/14 metFORMIN HCl [Glucophage] 1,000 mg PO BIDCM 04/04/14 Amlodipine [Norvasc] 5 mg PO DAILY 10/01/20 Calcium Carbonate/Magnesium Ox [Super Severo-Mag Tablet] 1 tablet PO DAILY 10/01/20 Gabapentin 300 mg PO DAILY 10/01/20 Multivit-Min/FA/Lycopen/Lutein [Centrum Silver Men Tablet] 1 tablet PO DAILY 10/01/20 Pioglitazone [Actos] 45 mg PO DAILY 10/01/20 Pyridoxine HCl (Vitamin B6) [Vitamin B-6] 100 mg PO DAILY 10/01/20 Tylenol 1,500 - 1,950 mg PO TID PRN PRN 10/01/20 Apixaban [Eliquis] 5 mg PO BID #30 tablet 10/02/20 Metoprolol(XL)Succ [Toprol Xl (Beta Sal)] 50 mg PO DAILY #60 tab 10/02/20 The patient was counseled on the following discharge medications and changes in medications for homegoing were reviewed. The Reason for Use, instructions for use, and potential side effects were reviewed for all new medications. The patient's questions regarding all of their medications were answered. The patient was able to verbally demonstrate an understanding of their discharge medications.
== END 2020-10-02 13:42 | disposition home or self-care (01) ==
LOC: ED 18:30 → PCU 19:29
PROVIDERS: Admitting Provider Hospitalist; Emergency Provider Emergency Medicine; PCP Family Medicine; Visit Provider Internal Medicine
DX: I48.91 Unspecified atrial fibrillation (principal); E66.2 Morbid (severe) obesity with alveolar hypoventilation; Z68.44 Body mass index [BMI] 60.0-69.9, adult; J44.9 Chronic obstructive pulmonary disease, unspecified; E11.65 Type 2 diabetes mellitus with hyperglycemia; R06.02 Shortness of breath; I10 Essential (primary) hypertension; E11.40 Type 2 diabetes mellitus with diabetic neuropathy, unspecified; Z87.891 Personal history of nicotine dependence; Z79.899 Other long term (current) drug therapy; Z79.84 Long term (current) use of oral hypoglycemic drugs; Z91.14 Patient's other noncompliance with medication regimen
CPT/HCPCS: 36415; 71045; 80048; 80053; 82962; 83735; 83880; 84443; 84484; 85025; 93005; 93306; 94002; 94660; 96372; 96374; 96375; 96376; 99218; 99285; Q9957; A4216; C8929; G0378; J1940

== ENCOUNTER → 2020-11-03 13:13 | Outpatient (CLI) | payer MEDICARE, OTHER, SELFPAY ==
[2020-10-01 19:29] VITALS: BMI 60.7
--- NOTE | 2020-11-03 13:14 | US_ITS ---
STUDY: THYROID ULTRASOUND REASON FOR EXAM: Male, 65 years old. THYROID NODULE TECHNIQUE: Ultrasound evaluation of the thyroid was performed with real-time and static duffy-scale imaging. Exam is very limited due to patient''s body habitus, rapid breathing and inability to properly position during the exam. COMPARISON: None. FINDINGS: RIGHT LOBE: The right lobe of the thyroid gland measures 4.9 x 2.2 x 2.4 cm. There is a homogeneous echotexture. Within the middle pole of the right thyroid lobe there is a small hyperechoic structure measuring 0.4 x 0.3 x 0.3 cm suggestive of a solid nodule. LEFT LOBE: The left lobe of the thyroid gland measures 4.9 x 2.3 x 2.7 cm. There is a homogeneous echotexture. There are no demonstrated solid, cystic or complex lesions. ISTHMUS: The isthmus measures 5.0 mm. The regional lymph nodes are normal. US/Thyroid IMPRESSION: Limited ultrasound examination with a small nodule within the right middle thyroid lobe measuring 0.4 cm in maximum dimension. This is nonspecific and may represent a small hyperechoic nodule versus calcification. Recommend follow-up ultrasound in 6 months to evaluate stability. Electronically Signed: Emma Hairston MD at 3:07 EDT , Service support ,
== END ==
PROVIDERS: PCP Family Medicine; Referring Provider Family Medicine; Visit Provider Family Medicine
DX: E04.1 Nontoxic single thyroid nodule (principal)
CPT/HCPCS: 76536

== ENCOUNTER 2020-12-03 13:08 | Inpatient (IN) | payer MEDICARE, OTHER, SELFPAY ==
[2020-11-07 10:49] VITALS: BMI 61.1
[2020-12-03] VITALS (7 sets, daily range): BP systolic 128–168; BP diastolic 54–98; PULSE 80–96; RESP 15–18; TEMP 36.6–37.6; O2SAT 94–97; BMI 61.1; BMI 58.8
--- NOTE | 2020-12-03 13:40 | EKG12_ITS ---
Test Reason : Blood Pressure : / mmHG Vent. Rate : 092 BPM Atrial Rate : 234 BPM P-R Int : 000 ms QRS Dur : 094 ms QT Int : 392 ms P-R-T Axes : 000 037 007 degrees QTc Int : 484 ms Atrial fibrillation with premature ventricular or aberrantly conducted complexes Prolonged QT Abnormal ECG Confirmed by LEE STERLING, LEONARDO ([id number]), technical editor KEVEN MOORE ([id number]) on 12/05/2020 10:44:38 A M Referred By: REED Confirmed By:BRIGIDA HOWARD MD
--- NOTE | 2020-12-03 14:01 | RAD_ITS ---
STUDY: X-RAY - LEFT FOOT CLINICAL: Male, 65 years old. Wound along the plantar aspect of the left foot overlying the fifth metatarsal phalangeal joint. TECHNIQUE: 3 view(s) of the foot. COMPARISON: None. FINDINGS: Calcaneal spurs. Normal visualized subtalar, talonavicular, calcaneocuboid, tarsal and tarsometatarsal articulations. Normal metatarsi. Normal metatarsophalangeal joint of the great toe. Normal tibial and fibular sesamoid bones. Normal interphalangeal joint of the great toe. Normal phalanges of the great toe. Normal second through fifth metatarsophalangeal joints. Nondisplaced fracture at the base of the proximal phalanx of the fifth toe with overlying soft tissue injury and laceration. Air is seen within the soft tissues. Soft tissue swelling. RAD/Foot min 3 Views IMPRESSION: Nondisplaced fracture of the base of the distal phalanx of the fifth toe with overlying soft tissue emphysema and soft tissue swelling. Electronically Signed: Amilcar León MD at 14:27 EDT , Service support ,
[2020-12-03 14:06] LABS: Basophil# 0.04 X10^3/uL; Basophil% 0.5 % (0-1); Eosinophil# 0.13 X10^3/uL; Eosinophils% 1.6 % (0-5); Hemoglobin 12.5 g/dL (13.0-16.5); Mean Corp Hgb Conc 32.1 g/dL (32-36); Mean Corpuscular Hgb 26.5 pg (27.0-32.0); Mean Corpuscular Volume 82.6 fL (80-94); Mean Platelet Vol. 9.1 fl (6.2-12.0); Monocyte# 0.58 X10^3/uL; NRBC Flagged by Analyzer 0 % (0-5); Neutrophil # 6.02 X10^3/uL (2.7-7.7); Neutrophil % 72.3 % (47-70); Platelet Count 310 K/mm3 (150-450); RBC Distribution Width CV 13.5 % (11.6-14.6); RBC Distribution Width SD 40.3 fl (35.1-43.9); Red Blood Count 4.72 M/mm3 (4.6-6.2); White Blood Count 8.3 K/mm3 (4.4-11.0)
--- NOTE | 2020-12-03 14:06 | EDS_ITS ---
HPI History of Present Illness Chief Complaint: Lower Extremity Injury Informant: patient Onset/Context/Timing Onset: Weeks (1) Context: Gradual Onset Timing: Continuous Location: Left foot Worsened by: Nothing Relieved by: Nothing Narrative Narrative: Patient presents with left foot wound and cellulitis that has been getting worse over the past week. Patient states it is gradually getting worse. Patient states it has been constant. Patient denies any pain in his foot. Patient states he is diabetic and has neuropathy in that foot. Patient is unsure if he had any puncture wounds to his foot. Patient denies any fevers or chills. Patient admits to some blurred vision recently. Patient denies any double vision. Patient states he is on Eliquis for atrial fibrillation. Patient states he took his last dose today. Patient states he has been having difficulty refilling his Eliquis because of insurance reasons. [facility] Medical History Bilateral leg edema Essential (primary) hypertension Hyperlipidemia Lower extremity neuropathy Morbid obesity New onset atrial fibrillation (10/01/20) Obstructive sleep apnea Pickwickian syndrome Thyroid nodule Type 2 diabetes mellitus Home Medications losartan 100 mg PO DAILY 04/04/14 [History Last Taken Unknown] metformin 1,000 mg PO BIDCM 04/04/14 [History Last Taken Unknown] amlodipine 5 mg PO DAILY 10/01/20 [History Last Taken Unknown] calcium carbonate-mag oxide 1 tablet PO DAILY 10/01/20 [History Last Taken 09/30/20] gabapentin 300 mg PO DAILY 10/01/20 [History Last Taken Unknown] uvihivag-gux-QX-lycopen-lutein 1 tablet PO DAILY 10/01/20 [History Last Taken 09/30/20] apixaban 5 mg PO BID #30 tablet 10/02/20 [Rx Last Taken Unknown] insulin glargine U-300 conc 300 unit/mL (3 mL) subcutaneous pen 30 unit SUBCUT DAILY 11/07/20 [History Last Taken Unknown] acetaminophen 500 mg PO Q6H PRN 12/03/20 [History Last Taken Unknown] aspirin [Baby Aspirin] 81 mg PO DAILY 12/03/20 [History Last Taken Unknown] metoprolol succinate [Toprol XL] 100 mg PO DAILY 12/03/20 [History Last Taken 12/03/20] pyridoxine (vitamin B6) [Vitamin B-6] 100 mg PO DAILY 12/03/20 [History Last Taken Unknown] Allergy/AdvReac Type Severity Reaction Status Date / Time ampicillin Allergy Unknown Verified 12/03/20 13:12 Penicillins Allergy Unknown Verified 12/03/20 13:12 Family History Mother Heart disease Diabetes Father Heart disease Cancer Surgical History History of wisdom tooth extraction Social History Smoking Status: Former smoker ROS ROS ED Constitutional Constitutional ED: Denies chills or fever(s) Eyes Eyes: Reports blurry vision; Denies change in vision ENT ENT ED: Denies rhinorrhea or sore throat Cardiovascular Cardiovascular: Denies chest pain or palpitations Respiratory/Chest Respiratory/Chest: Denies cough or dyspnea Gastrointestinal Gastrointestinal: Denies nausea or vomiting Genitourinary Genitourinary ED: Denies dysuria or hematuria Musculoskeletal Musculoskeletal: Denies back pain or neck pain Integumentary Reports rash; Denies abscess Neurologic Neurologic: Denies headache(s) or weakness Allergic/Immunologic Allergic/Immunologic ED: Denies mouth swelling or urticaria EXAM Physical Exam Const Vital Signs: 12/03/20 13:09 12/03/20 14:05 12/03/20 15:31 Temperature 98.3 F 98.5 F 98.5 F Temperature Source Temporal Temporal Temporal Pulse Rate 96 91 80 Respiratory Rate 16 15 18 Blood Pressure 168/88 H 158/78 H 159/62 H Blood Pressure Mean 114 104 94 Pulse Ox 95 96 95 Oxygen Delivery Method Room Air Room Air Room Air 12/03/20 17:02 Temperature 97.9 F Temperature Source Temporal Pulse Rate 94 Respiratory Rate 18 Blood Pressure 158/54 H Blood Pressure Mean 88 Pulse Ox 94 Oxygen Delivery Method Room Air Positive well nourished, well developed and obese General Appearance ED: well developed Nutritional Appearance: obese HEENT Reports moist mucous membranes Neck full ROM and supple Resp normal respiratory effort and clear to auscultation bilaterally Cardio regular rate Rhythm: abnormal rhythm irregularly irregular GI non-tender and non-distended Auscultation: normoactive bowel sounds Palpation: soft Extremity Extremity Narrative: There is edema, erythema, and warmth over the left foot. There is an open wound on the lateral and plantar aspects of the left foot. There is no active discharge or drainage. There is no fluctuance. It is malodorous. Neuro oriented x3, CN's II-XII intact bilaterally and moves all extremities Sensorium / Orientation: alert Motor Exam: strength 5/5 throughout and general weakness Psych mental status grossly normal MDM MDM MDM Narrative Medical decision making narrative: CBC shows a slightly low hemoglobin of 12.5 and hematocrit 39.0. PT with INR and PTT were essentially within normal limits. Comprehensive metabolic profile was within normal limits except for an elevated glucose of 301. Troponin was normal. Lactate was slightly elevated at 3.2. Patient was started on clindamycin and vancomycin. X-rays of the left foot were obtained. There are 3 views. On my interpretation, there is a nondisplaced fracture of the proximal phalanx of the left fifth toe. There is also subcutaneous gas noted in this area. There is soft tissue swelling noted. Radiologist also interpreted the x-rays and agrees. Case was discussed with the hospitalist. He will admit the patient to his service. Case was also discussed with podiatry, Dr. Colvin. She will come in and evaluate the patient. Patient was advised of his findings. Patient understands and is agreeable with the plan. All questions were answered. Lab Data Attestation: I reviewed the patient's lab results. Labs: Laboratory Results - last 24 hr 12/03/20 12/03/20 12/03/20 14:00 14:00 14:00 WBC 8.3 RBC 4.72 Hgb 12.5 L Hct 39.0 L MCV 82.6 MCH 26.5 L MCHC 32.1 RDW Std Deviation 40.3 RDW Coeff of Jada 13.5 Plt Count 310 MPV 9.1 Immature Gran % (Auto) 0.600 Neut % (Auto) 72.3 H Lymph % (Auto) 18.0 L [place] % (Auto) 7.0 Eos % (Auto) 1.6 Baso % (Auto) 0.5 Absolute Neuts (auto) 6.0 Absolute Lymphs (auto) 1.50 Nucleated RBC % 0 PT 15.5 H INR 1.3 APTT 35.3 Sodium 136 Potassium 3.6 Chloride 101 Carbon Dioxide 30.0 Anion Gap 5 BUN 10 Creatinine 0.79 Estim Creat Clear Calc 70.30 Est GFR (MDRD) Af Amer 125 Est GFR (MDRD) Non-Af 104 BUN/Creatinine Ratio 12.6 Glucose 301 H Lactic Acid Calcium 8.6 Total Bilirubin 0.30 AST 28 ALT 43 Alkaline Phosphatase 88 Troponin I < 0.015 Total Protein 7.4 Albumin 2.4 L Globulin 5.0 H Albumin/Globulin Ratio 0.5 L 12/03/20 14:00 WBC RBC Hgb Hct MCV MCH MCHC RDW Std Deviation RDW Coeff of Jada Plt Count MPV Immature Gran % (Auto) Neut % (Auto) Lymph % (Auto) [place] % (Auto) Eos % (Auto) Baso % (Auto) Absolute Neuts (auto) Absolute Lymphs (auto) Nucleated RBC % PT INR APTT Sodium Potassium Chloride Carbon Dioxide Anion Gap BUN Creatinine Estim Creat Clear Calc Est GFR (MDRD) Af Amer Est GFR (MDRD) Non-Af BUN/Creatinine Ratio Glucose Lactic Acid 3.2 H* Calcium Total Bilirubin AST ALT Alkaline Phosphatase Troponin I Total Protein Albumin Globulin Albumin/Globulin Ratio Radiography Diagnostic Testing: Radiology Impression Foot X-Ray 12/03/20 14:01 IMPRESSION: Nondisplaced fracture of the base of the distal phalanx of the fifth toe with overlying soft tissue emphysema and soft tissue swelling. Electronically Signed: Amilcar León MD at 14:27 EDT , Service support , Treatment and Re-Evaluation Vital Sign Attestation:: Vital signs were reviewed prior to admission. They are stable. Discharge Plan Dx/Rx/DC Orders Clinical Impression: Diabetic foot ulcer, Cellulitis of foot, left Disposition Disposition: Acute Care [facility]
[2020-12-03 14:20] LABS: International Normalized Ratio 1.3; Prothrombin Time (Protime)PT. 15.5 SECONDS (11.7-14.9)
[2020-12-03 14:21] LABS: Partial Thromboplast Time 35.3 Seconds (24.1-36.2)
[2020-12-03 14:24] LABS: ALB/GLOB Ratio 0.5 RATIO (0.9-2.4); AST(SGOT) 28 U/L (15-37); Alanine Aminotransfer ALT/SGPT 43 U/L (16-61); Albumin, Serum 2.4 g/dL (3.2-5.0); Alkaline Phosphatase 88 U/L (45-117); Anion Gap 5 (5-15); BUN 10 mg/dL (7-18); BUN/Creat Ratio 12.6 RATIO (10-20); Calcium,Total 8.6 mg/dL (8.5-10.1); Chloride 101 mmol/L (98-107); Creatinine, Serum 0.79 mg/dL (0.70-1.30); EST Glomerular Filtration Rate 104 mL/min (>60); Est Glom Filt Rate - Afr Amer 125 mL/min (>60); Glucose 301 mg/dL (74-106); Potassium 3.6 mmol/L (3.5-5.1); Protein, Total 7.4 g/dL (6.4-8.2); Sodium Level 136 mmol/L (136-145)
[2020-12-03 14:38] LABS: Lactic Acid 3.2 mmol/L (0.4-1.9)
--- NOTE | 2020-12-03 17:14 | NURSING ---
302 [address] CELLULITIS LT FOOT
--- NOTE | 2020-12-03 17:17 | PCM.HP.STD ---
Documented by User: Bernabe HYLTON 12/03/20 17:44 HPI - General HPI Narrative Patient is a 65-year-old male who presents to the ED at [facility] on 12/02/2020 with a chief complaint of draining left foot wound and cellulitis that has been getting gradually worse. She reports that a couple days ago he noticed that there was blood on his sock from a draining wound. Patient reports that over the past few days the wound has been getting progressively worse and that pus is now draining in addition to the blood. Patient is unclear about any precipitating wounds to his foot that may have caused this injury. Patient endorses bilateral lower extremity pain, however reports that this is chronic and does not believe this is related to his new foot wound. Denies chest pain, shortness of breath, palpitations, hemoptysis, sputum production, fever, chills, N/V/D. Patient denies any difficulties urinating. Past medical history is significant for atrial fibrillation, diabetes, hypertension, hyperlipidemia, diabetes 2 with lower extremity neuropathy, morbid obesity, TODD and obesity hypoventilation syndrome. Vital signs are stable and patient is afebrile. CBC does not not demonstrate a leukocytosis and is overall unremarkable. Lactic acid is elevated at 3.2. X-ray of the left foot demonstrates a nondisplaced fracture of the base of the distal phalanx of the fifth toe with overlying soft tissue swelling and emphysema. Patient was started on clindamycin and vancomycin in the ED. [facility] Medical History (Updated 12/03/20 @ 18:[address] Amelie Colvin, DPJoyce) Atrial fibrillation Bilateral leg edema BiPAP (biphasic positive airway pressure) dependence Diabetes Essential (primary) hypertension Hyperlipidemia Lower extremity neuropathy Morbid obesity New onset atrial fibrillation (10/01/20) Obstructive sleep apnea Pickwickian syndrome Sleep apnea Thyroid nodule Type 2 diabetes mellitus Home Medications losartan 100 mg PO DAILY 04/04/14 [History Last Taken 12/03/20] metformin 1,000 mg PO BIDCM 04/04/14 [History Last Taken 12/03/20] amlodipine 5 mg PO DAILY 10/01/20 [History Last Taken 12/03/20] calcium carbonate-mag oxide 1 tablet PO DAILY 10/01/20 [History Last Taken 09/30/20] gabapentin 300 mg PO QHS 10/01/20 [History Last Taken 12/02/20] zbywxpmm-zob-PD-lycopen-lutein 1 tablet PO DAILY 10/01/20 [History Last Taken 09/30/20] apixaban 5 mg PO BID #30 tablet 10/02/20 [Rx Last Taken 12/03/20] insulin glargine U-300 conc 300 unit/mL (3 mL) subcutaneous pen 30 unit SUBCUT DAILY 11/07/20 [History Last Taken 12/01/20] acetaminophen 500 mg PO Q6H PRN 12/03/20 [History Last Taken 12/03/20] aspirin [Baby Aspirin] 81 mg PO DAILY 12/03/20 [History Last Taken 12/03/20] metoprolol succinate [Toprol XL] 100 mg PO DAILY 12/03/20 [History Last Taken 12/03/20] pyridoxine (vitamin B6) [Vitamin B-6] 100 mg PO DAILY 12/03/20 [History Last Taken 12/03/20] Allergy/AdvReac Type Severity Reaction Status Date / Time ampicillin Allergy Unknown Verified 12/03/20 13:12 Penicillins Allergy Unknown Verified 12/03/20 13:12 Family History Mother Heart disease Diabetes Father Heart disease Cancer Surgical History History of wisdom tooth extraction Social History Smoking Status: Former smoker ROS Constitutional Constitutional: Denies anorexia, change in weight, chills, fatigue, fever(s), malaise, night sweats, weakness or other Eyes Eyes: Denies blurry vision, change in eye color, change in vision, discharge from eye(s), double vision, erythema, eye pain, loss of vision or other ENT HEENT: Denies abnormal hearing, dysphagia, ear pain, epistaxis, headache(s), hearing loss, nasal congestion, nasal discharge, post nasal drip, sinus pressure, sore throat or other Cardiovascular Cardiovascular: Denies chest pain, claudication, dyspnea on exertion, edema, lightheadedness, orthopnea, palpitations, paroxysmal nocturnal dyspnea, rapid heart rate, syncope or other Respiratory/Chest Respiratory/Chest: Denies cough, dyspnea, excessive phlegm production, hemoptysis, productive cough, shortness of breath at rest, shortness of breath with exertion, wheezing or other Gastrointestinal Gastrointestinal: Denies abdominal pain, coffee ground emesis, constipation, diarrhea, dyspepsia, hematemesis, hematochezia, loose stools, melena, nausea, vomiting or other Genitourinary Genitourinary: Denies burning urination, difficulty urinating, dysuria, hematuria, nocturia, urinary frequency, urinary hesitancy, urinary incontinence, urinary urgency or other Musculoskeletal Musculoskeletal: Denies arthralgias, back pain, joint pain, joint stiffness, joint swelling, myalgias, neck pain or other Neurologic Neurologic: Denies abnormal gait, abnormal speech, confusion, disequilibrium, dizziness, focal weakness, headache(s), numbness, paresthesias, seizure-like activity, seizures, syncope, tingling, tremor(s) or other Psychiatric Psychiatric: Denies anxiety, depression, homicidal ideation, suicidal ideation or other Endocrine Endocrinology: Denies change in body appearance, cold intolerance, excessive sweating, heat intolerance, polydipsia, polyuria or other Hematologic/Lymphatic Hematologic/Lymphatic: Denies anemia, easy bleeding, easy bruising, lymphadenopathy or other Allergic/Immunologic Allergic/Immunologic: Denies rhinitis, hives, eczemia, asthma or other Vital Signs Vital Signs Vital Signs: 12/03/20 13:09 12/03/20 14:05 12/03/20 15:31 Temperature 98.3 F 98.5 F 98.5 F Temperature Source Temporal Temporal Temporal Pulse Rate 96 91 80 Respiratory Rate 16 15 18 Blood Pressure 168/88 H 158/78 H 159/62 H Blood Pressure Mean 114 104 94 Pulse Ox 95 96 95 Oxygen Delivery Method Room Air Room Air Room Air 12/03/20 17:02 Temperature 97.9 F Temperature Source Temporal Pulse Rate 94 Respiratory Rate 18 Blood Pressure 158/54 H Blood Pressure Mean 88 Pulse Ox 94 Oxygen Delivery Method Room Air Weight Weight: 402 lb Body Mass Index (BMI) 61.1 Physical Exam Const alert and oriented x3 General Appearance: cooperative HEENT normocephalic, head/scalp atraumatic and hearing grossly normal bilaterally Eyes PERRL, EOMs intact bilaterally and conjunctivae normal Neck no lymphadenopathy, supple and no JVD Resp normal respiratory effort, no retractions and no use of accessory muscles Auscultation: diminished lung sounds Cardio regular rate, regular rhythm, no murmurs and no JVD GI normal to inspection, nondistended, normoactive bowel sounds, soft to palpation and non-tender Extremity normal to inspection, full ROM and no clubbing, cyanosis or edema Skin no rashes or lesions noted, no wounds and skin turgor normal Neuro CN's II-XII intact bilaterally Psych affect normal Results Lab / Micro Data Result Diagrams: 12/03/20 14:00 12/03/20 14:00 Labs: Laboratory Results - last 24 hr 12/03/20 12/03/20 12/03/20 14:00 14:00 14:00 WBC 8.3 RBC 4.72 Hgb 12.5 L Hct 39.0 L MCV 82.6 MCH 26.5 L MCHC 32.1 RDW Std Deviation 40.3 RDW Coeff of Jada 13.5 Plt Count 310 MPV 9.1 Immature Gran % (Auto) 0.600 Neut % (Auto) 72.3 H Lymph % (Auto) 18.0 L [place] % (Auto) 7.0 Eos % (Auto) 1.6 Baso % (Auto) 0.5 Absolute Neuts (auto) 6.0 Absolute Lymphs (auto) 1.50 Nucleated RBC % 0 PT 15.5 H INR 1.3 APTT 35.3 Sodium 136 Potassium 3.6 Chloride 101 Carbon Dioxide 30.0 Anion Gap 5 BUN 10 Creatinine 0.79 Estim Creat Clear Calc 70.30 Est GFR (MDRD) Af Amer 125 Est GFR (MDRD) Non-Af 104 BUN/Creatinine Ratio 12.6 Glucose 301 H Lactic Acid Calcium 8.6 Total Bilirubin 0.30 AST 28 ALT 43 Alkaline Phosphatase 88 Troponin I < 0.015 Total Protein 7.4 Albumin 2.4 L Globulin 5.0 H Albumin/Globulin Ratio 0.5 L 12/03/20 14:00 WBC RBC Hgb Hct MCV MCH MCHC RDW Std Deviation RDW Coeff of Jada Plt Count MPV Immature Gran % (Auto) Neut % (Auto) Lymph % (Auto) [place] % (Auto) Eos % (Auto) Baso % (Auto) Absolute Neuts (auto) Absolute Lymphs (auto) Nucleated RBC % PT INR APTT Sodium Potassium Chloride Carbon Dioxide Anion Gap BUN Creatinine Estim Creat Clear Calc Est GFR (MDRD) Af Amer Est GFR (MDRD) Non-Af BUN/Creatinine Ratio Glucose Lactic Acid 3.2 H* Calcium Total Bilirubin AST ALT Alkaline Phosphatase Troponin I Total Protein Albumin Globulin Albumin/Globulin Ratio Radiology Impression Foot X-Ray 12/03/20 14:01 IMPRESSION: Nondisplaced fracture of the base of the distal phalanx of the fifth toe with overlying soft tissue emphysema and soft tissue swelling. Electronically Signed: Amilcar León MD at 14:27 EDT , Service support , Assessment & Plan Assessment/Plan (1) Pickwickian syndrome: (2) Hyperlipidemia: (3) Essential (primary) hypertension: (4) New onset atrial fibrillation: (5) Bilateral leg edema: (6) Cellulitis and abscess of foot: (7) Foot fracture, left: (8) Diabetes: (9) Atrial fibrillation: (10) Morbid obesity: (11) Lower extremity neuropathy: (12) Type 2 diabetes mellitus: PLAN: 1) Draining left foot wound w/ fracture of the distal phalanx of the 5th metatarsal 3-day history of left foot wound that is draining blood and pus. Left lower extremity is swollen, erythematous and not tender to touch. Complex medical history to include morbid obesity and diabetes mellitus type 2 with lower extremity neuropathy. Vital signs stable and patient is afebrile. No leukocytosis on CBC. Elevated lactate at 3.2. X-ray of the left foot demonstrates nondisplaced fracture of the base of the distal phalanx of the fifth toe with overlying soft tissue emphysema and swelling. Plan; initiate cefepime and vancomycin, Zofran as needed, MRI of the left foot to assess for osteomyelitis, blood cultures ordered, podiatry consult ordered, ultrasound of the lower extremities to assess for DVT, wound culture ordered, case management consult ordered, PT/OT eval ordered, monitor CBC and BMP, wound consult ordered. 2) Atrial fibrillation On Eliquis for anticoagulation. On metoprolol for rate control. Plan; hold Eliquis in case of surgery, continue metoprolol. 3) diabetes mellitus 2 with lower extremity neuropathy Plan; hold metformin and home insulin regimen, bedside glucose testing ordered, calorie controlled diet, D50 ordered, continue gabapentin. 4) morbid obesity Complicates #1. Weight 44 2 pounds with a BMI of 61.1. Plan; calorie controlled diet initiated, weight loss advised. 5) hypertension Not within goal; 151/83. Plan; continue amlodipine, metoprolol and losartan. DVT prophylaxis -Lovenox, home Eliquis on hold. CODE STATUS: Full code Patient seen by Bernabe Adams PA-C, under the supervision of Dr. Stuart. Documented by User: Dr. Bakari Almaguer MD 12/03/20 21:18 HPI - General General Date of Admission: 12/03/20 [facility] Medical History (Updated 12/03/20 @ 18:[address] Amelie Colvin DPJoyce) Atrial fibrillation Bilateral leg edema BiPAP (biphasic positive airway pressure) dependence Diabetes Essential (primary) hypertension Hyperlipidemia Lower extremity neuropathy Morbid obesity New onset atrial fibrillation (10/01/20) Obstructive sleep apnea Pickwickian syndrome Sleep apnea Thyroid nodule Type 2 diabetes mellitus Home Medications losartan 100 mg PO DAILY 04/04/14 [History Last Taken 12/03/20] metformin 1,000 mg PO BIDCM 04/04/14 [History Last Taken 12/03/20] amlodipine 5 mg PO DAILY 10/01/20 [History Last Taken 12/03/20] calcium carbonate-mag oxide 1 tablet PO DAILY 10/01/20 [History Last Taken 09/30/20] gabapentin 300 mg PO QHS 10/01/20 [History Last Taken 12/02/20] loeinpzl-zyx-NS-lycopen-lutein 1 tablet PO DAILY 10/01/20 [History Last Taken 09/30/20] apixaban 5 mg PO BID #30 tablet 10/02/20 [Rx Last Taken 12/03/20] insulin glargine U-300 conc 300 unit/mL (3 mL) subcutaneous pen 30 unit SUBCUT DAILY 11/07/20 [History Last Taken 12/01/20] acetaminophen 500 mg PO Q6H PRN 12/03/20 [History Last Taken 12/03/20] aspirin [Baby Aspirin] 81 mg PO DAILY 12/03/20 [History Last Taken 12/03/20] metoprolol succinate [Toprol XL] 100 mg PO DAILY 12/03/20 [History Last Taken 12/03/20] pyridoxine (vitamin B6) [Vitamin B-6] 100 mg PO DAILY 12/03/20 [History Last Taken 12/03/20] Allergy/AdvReac Type Severity Reaction Status Date / Time ampicillin Allergy Unknown Verified 12/03/20 13:12 Penicillins Allergy Unknown Verified 12/03/20 13:12 Family History Mother Heart disease Diabetes Father Heart disease Cancer Surgical History History of wisdom tooth extraction Social History Smoking Status: Former smoker Results Lab / Micro Data Result Diagrams: 12/03/20 14:00 12/03/20 14:00 Charges/Coding Addendum Addendum: Dr. Almaguer: I personally reviewed the chart and examined the patient, and agree with the above findings. 65-year-old male presents to the hospital with a draining left foot wound. He has been noticing the worsening ulcer for several days however states that he is not sure how he broke his pinky toe other than that 2 weeks ago he fell out of bed. He denies any fevers or chills, and he does not have a leukocytosis and his lactic acid is elevated however he does not have any sirs criteria and therefore is not septic. Podiatry was consulted and they did a sharp excision at bedside and sent wound cultures. Given how the wound looks, and overlying a fracture point, will obtain an MRI. If positive would recommend consulting infectious disease for possible long-term antibiotics. We will continue with cefepime and vancomycin. Visit Charges Inpatient E&M: 26030 Init Hosp L3
--- NOTE | 2020-12-03 17:29 | NURSING ---
PER DR LAGUNAS, DR JOVEL IS COMING TO SEE PATIENT
--- NOTE | 2020-12-03 18:00 | NURSING ---
DR BEST IN WITH PATIENT
[2020-12-03 18:02] LABS: Reflex Lactate? Y
--- NOTE | 2020-12-03 18:19 | ART_ITS ---
Reason For Study: Ulcer Procedure A bilateral lower extremity continuous wave Doppler with analog waveform analysis,segmental pressures,and ankle brachial indexes without exercise. Left Segmental Pressures Left brachial= 173mmHg. Left posterior tibial artery = 167mmHg. Left dorsalis pedis artery = 171mmHg. Left digit = 153 mmHg. The left dorsalis pedis waveforms are triphasic. The left posterior tibial artery waveforms are triphasic. Right Segmental Pressures Right posterior tibial artery = 183mmHg. Right dorsalis pedis artery = 181mmHg. Right digit = 138 mmHg. The right dorsalis pedis waveforms are triphasic. The right posterior tibial artery waveforms are triphasic. Indices The right ankle brachial index by the dorsalis pedis is 1.05. The right ankle brachial index by the posterior tibial artery is 1.06. The right digital-brachial index is 0.80. The left ankle brachial index by the dorsalis pedis is 0.99. The left ankle brachial index by the posterior tibial artery is 0.97. The left digital-brachial index is 0.88. VL/Lower Ext Art Exam w/o Exercis Interpretation Summary Triphasic Doppler waveforms are noted at ankle level bilaterally. Pulse-volume recordings appear satisfactory bilaterally. Resting ankle-brachial indices are normal bilaterally . Digital-brachial indices are normal bilaterally. There is no evidence of significant arterial occlusive disease in the lower ext remities bilaterally. Ordering Physician: Amelie Colvin Referring Physician: Bernabe Reese Performed By: Jazmín Roy RVT and Student
--- NOTE | 2020-12-03 18:23 | CON.PCM_ITS ---
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 Patient is noted to have neuropathy so after verbal consent was obtained sharp excisional debridement was performed of this ulceration. Cultures were obtained at this time and sent to the lab. There is some purulent drainage is expressed. There was probing to bone as well to the dorsal aspect of the foot noted. Malodor increased after the caro of the ulceration. It is hoped this will allow the wound to drain better until more definitive procedure can be done in the OR. Sharp excisional nonselective debridement was carried out into the level of muscle with a pickup and 15 blade with removal of all devitalized, slough, biofilm, and fibrous tissue. This was done without incidence. This was tolerated due to patient's neuropathy. Predebridement measurements were 7 x 4 x 0.2 cm and post debridement measurements were 7.5 x 4.5 x 5 cm Continue antibiotics Blood work reviewed showing no leukocytosis. Further inflammatory markers were ordered. New hemoglobin A1c was ordered. Wound cultures were ordered. Blood cultures were ordered. Elevated lactic acid noted. LEAS ordered to assess healing potential. X-rays were reviewed showing fracture of the distal phalanx of the fifth digit. There is soft tissue emphysema noted. This communicates with the wound to the plantar lateral aspect of the foot upon clinical exam and correlation. Upon clinical exam and review of the chart and discussion with hospitalist it was determined that patient is stable enough with vital signs stable, no white cell count,resting comfortably and no systemic signs of illness that a bedside debridement would be adequate until more information can be gathered and patient be optimized for surgery potentially tomorrow. MRI ordered to assess for possible osteomyelitis and extent of infection. Discussed with the patient the need to go to surgery to at least clean up the wound more definitively. Discussed possibility of amputation pending results from MRI. Discussed possibility of need to amputate more than just the toe depending on MRI results. Discussed that even if we do amputation that he is likely going to need wound care given the extent of the ulceration size. Discussed with the patient all risk associated with undergoing surgery as regards to COVID-19 exposure. Discussed all risks, benefits, alternatives, and complications including but not limited to infection, delayed healing, nonhealing, blood clots, amputation, possible , and/or need for further surgery with the patient. No guarantees were given or implied. Patient agreed to proceed with the procedure. All questions answered. Patient understands possible treatment course and will rediscuss tomorrow when more information is available and see if there is any improvement noted to the area after bedside debridement was performed. Discussed importance of smoking cessation, blood sugar control, weight management, offloading, proper nutrition, and hygeine to optimize healing potential. Patient made n.p.o. at midnight for potential surgery tomorrow We will reassess in the morning and talk to the OR by availability All questions answered Thank you for the consult podiatry will continue to follow on the floor. Please contact if any questions or concerns Amelie Colvin [facility] [phone] This note was generated with [employer] dictation software. It may contain incorrect words, spelling, and punctuation that were not noted in checking the note before signing. HPI Consult Data Date of Consult: 12/03/20 HPI Narrative Reason for Consultation: left foot wound HPI Narrative: LANI MARRERO, is a 65 M who presents to the [facility] emergency room with complaints of left foot wound. Patient has a significant medical history including type 2 diabetes, A. fib, morbid obesity, edema bilateral lower extremities, hypertension, hyperlipidemia. Patient states that this has been there about 3 days but he does not check his feet regularly so this is just an estimate. Patient is not sure how this happened. The only thing he can relate is stumbling several days ago. Patient is diabetic with neuropathy does not have feeling in his feet. Patient has history of heel ulceration to the right limb that was treated at the [facility] wound care center couple years ago. Patient denies any nausea fever vomiting chills chest pain shortness of breath diarrhea constipation or pain. ED course was significant for fracture noted to the proximal phalanx of the fifth digit left foot. His blood work was largely unremarkable except for an elevated lactate level of 3.2. His white blood cell count was 8.3 and his glucose was 301. Patient relates that his blood sugar has been widely variable with ranges from high 200s to 400s. He does not know his last hemoglobin A1c was. His last in our system was 7.9% on 05/07/2016. [facility] Medical History (Updated 12/03/20 @ 18:[address] Amelie Colvin, DPM) Atrial fibrillation Bilateral leg edema BiPAP (biphasic positive airway pressure) dependence Diabetes Essential (primary) hypertension Hyperlipidemia Lower extremity neuropathy Morbid obesity New onset atrial fibrillation (10/01/20) Obstructive sleep apnea Pickwickian syndrome Sleep apnea Thyroid nodule Type 2 diabetes mellitus Home Medications losartan 100 mg PO DAILY 04/04/14 [History Last Taken 12/03/20] metformin 1,000 mg PO BIDCM 04/04/14 [History Last Taken 12/03/20] amlodipine 5 mg PO DAILY 10/01/20 [History Last Taken 12/03/20] calcium carbonate-mag oxide 1 tablet PO DAILY 10/01/20 [History Last Taken 09/30/20] gabapentin 300 mg PO QHS 10/01/20 [History Last Taken 12/02/20] hbhltqte-wif-OR-lycopen-lutein 1 tablet PO DAILY 10/01/20 [History Last Taken 09/30/20] apixaban 5 mg PO BID #30 tablet 10/02/20 [Rx Last Taken 12/03/20] insulin glargine U-300 conc 300 unit/mL (3 mL) subcutaneous pen 30 unit SUBCUT DAILY 11/07/20 [History Last Taken 12/01/20] acetaminophen 500 mg PO Q6H PRN 12/03/20 [History Last Taken 12/03/20] aspirin [Baby Aspirin] 81 mg PO DAILY 12/03/20 [History Last Taken 12/03/20] metoprolol succinate [Toprol XL] 100 mg PO DAILY 12/03/20 [History Last Taken 12/03/20] pyridoxine (vitamin B6) [Vitamin B-6] 100 mg PO DAILY 12/03/20 [History Last Taken 12/03/20] Allergy/AdvReac Type Severity Reaction Status Date / Time ampicillin Allergy Unknown Verified 12/03/20 13:12 Penicillins Allergy Unknown Verified 12/03/20 13:12 Family History Mother Heart disease Diabetes Father Heart disease Cancer Surgical History History of wisdom tooth extraction Social History Smoking Status: Former smoker ROS Constitutional Constitutional: Denies chills or fever(s) Cardiovascular Cardiovascular: Denies chest pain Respiratory/Chest Respiratory/Chest: Denies cough Gastrointestinal Gastrointestinal: Denies nausea or vomiting Musculoskeletal Musculoskeletal: Denies muscle cramps or muscle weakness Integumentary Integumentary: Reports wounds Neurologic Neurologic: Reports numbness and tingling Physical Exam Const alert and no apparent distress General Appearance: cooperative and comfortable HEENT Head and Scalp: atraumatic Resp normal respiratory effort Effort and Inspection: able to speak in complete sentences Extremity normal capillary refill and no calf tenderness General Extremity: edema bilateral lower extremity, no tenderness to palpation of joints or extremities and other findings Other Details: Capillary refill time less than 3 seconds noted to digits ; Negative for clubbing or cyanosis Peripheral Pulses: Yes posterior tibial pulses present bilateral diminished and dorsalis pedis pulses present bilateral diminished Skin General Skin Exam: atrophy and dry skin; Negative for ecchymosis Rashes: no rashes Wounds: wounds noted Wound Narrative: ulcers noted to plantar lateral fifth MPJ left foot Mild malodor, erythema noted to entirety of foot, purulence expressed, probes to bone and to dorsal foot, no streaking, fluctuation, no crepitus. Skin is atrophic and hairless. Fibrotic and necrotic base. Neuro Sensory Exam: extremities light-touch: decreased Motor Exam: strength 5/5 throughout Psych Appearance: appropriate Attitude: calm Lab / Micro Data Result Diagrams: 12/03/20 14:00 12/03/20 14:00 Labs: Laboratory Results - last 24 hr 12/03/20 12/03/20 12/03/20 14:00 14:00 14:00 WBC 8.3 RBC 4.72 Hgb 12.5 L Hct 39.0 L MCV 82.6 MCH 26.5 L MCHC 32.1 RDW Std Deviation 40.3 RDW Coeff of Jada 13.5 Plt Count 310 MPV 9.1 Immature Gran % (Auto) 0.600 Neut % (Auto) 72.3 H Lymph % (Auto) 18.0 L [place] % (Auto) 7.0 Eos % (Auto) 1.6 Baso % (Auto) 0.5 Absolute Neuts (auto) 6.0 Absolute Lymphs (auto) 1.50 Nucleated RBC % 0 PT 15.5 H INR 1.3 APTT 35.3 Sodium 136 Potassium 3.6 Chloride 101 Carbon Dioxide 30.0 Anion Gap 5 BUN 10 Creatinine 0.79 Estim Creat Clear Calc 70.30 Est GFR (MDRD) Af Amer 125 Est GFR (MDRD) Non-Af 104 BUN/Creatinine Ratio 12.6 Glucose 301 H Lactic Acid Calcium 8.6 Total Bilirubin 0.30 AST 28 ALT 43 Alkaline Phosphatase 88 Troponin I < 0.015 Total Protein 7.4 Albumin 2.4 L Globulin 5.0 H Albumin/Globulin Ratio 0.5 L 12/03/20 14:00 WBC RBC Hgb Hct MCV MCH MCHC RDW Std Deviation RDW Coeff of Jada Plt Count MPV Immature Gran % (Auto) Neut % (Auto) Lymph % (Auto) [place] % (Auto) Eos % (Auto) Baso % (Auto) Absolute Neuts (auto) Absolute Lymphs (auto) Nucleated RBC % PT INR APTT Sodium Potassium Chloride Carbon Dioxide Anion Gap BUN Creatinine Estim Creat Clear Calc Est GFR (MDRD) Af Amer Est GFR (MDRD) Non-Af BUN/Creatinine Ratio Glucose Lactic Acid 3.2 H* Calcium Total Bilirubin AST ALT Alkaline Phosphatase Troponin I Total Protein Albumin Globulin Albumin/Globulin Ratio Radiology Impression Foot X-Ray 12/03/20 14:01 IMPRESSION: Nondisplaced fracture of the base of the distal phalanx of the fifth toe with overlying soft tissue emphysema and soft tissue swelling. Electronically Signed: Amilcar León MD at 14:27 EDT , Service support ,
--- NOTE | 2020-12-03 18:59 | VDLE_ITS ---
Reason For Study: Swelling RIGHT LEFT GSV is normal. GSV is normal. CFV is compressible, spontaneous, phasic, CFV is compressible, spontaneous, phasic, competent and demonstrates normal competent, and demonstrates normal augmentation. augmentation. FV is compressible, spontaneous, phasic, FV is compressible, spontaneous, phasic, competent and demonstrates normal competent and demonstrates normal augmentation. augmentation. POP V is compressible, spontaneous, phasic, POP V is compressible, spontaneous, phasic, competent and demonstrates normal competent and demonstrates normal augmentation. augmentation. T/P Trunk is compressible. T/P Trunk is compressible. PTV is compressible. PTV is compressible. RT PerV is compressible. LT PerV is compressible. Procedure This is a venous duplex using B-mode, color flow and spectral Doppler. Exam performed portable in patient room. A preliminary report was called and/or faxed to [facility]. VL/Venous Duplex US - Jose Manuel Extrem Interpretation Summary No evidence for acute deep venous thrombosis bilateral lower extremities with p atent and compressible bilateral great saphenous veins. Ordering Physician: Bernabe Adams Referring Physician: Bernabe Reese Performed By: Jazmín Roy RVT and Student
--- NOTE | 2020-12-03 19:20 | PCM.RX.CS ---
Consult Pharmacy has been consulted to manage selected antiobiotic: Vancomycin Type of Consult: New start Suspected Infection: Skin/Soft tissue Labs: Sodium 136 mmol/L (136-145) 12/03/20 14:00 Potassium 3.6 mmol/L (3.5-5.1) 12/03/20 14:00 Chloride 101 mmol/L (98-107) 12/03/20 14:00 Carbon Dioxide 30.0 mmol/L (21.0-32.0) 12/03/20 14:00 Anion Gap 5 (5-15) 12/03/20 14:00 BUN 10 mg/dL (7-18) 12/03/20 14:00 Creatinine 0.79 mg/dL (0.70-1.30) 12/03/20 14:00 Est GFR (MDRD) Af Amer 125 mL/min (>60) 12/03/20 14:00 Est GFR (MDRD) Non-Af 104 mL/min (>60) 12/03/20 14:00 BUN/Creatinine Ratio 12.6 RATIO (10-20) 12/03/20 14:00 Glucose 301 mg/dL (74-106) H 12/03/20 14:00 Goal Trough: 15-20 mcg/mL Pharmacy Plan for Drug Dosing: NEW START IV VANCOMYCIN Consulting Physician: Dr. Almaguer Indication: L-foot wound/cellulitis Goal Trough: 15-20 SrCr: 0.79 CrCl: 109 mL/min (using AdjBW 114kg) Comments: 2g IV x1 dose in ED 12/03/20 @1519 Vancomcyin Dose: 1250mg IV Q8hr to start 12/03/20 @2300 Pending Level: 12/04/20 @1430, prior to 4th total dose per protocol. Pharmacy Service will continue to monitor and adjust dosing as required.
[2020-12-03 19:21] LABS: Bedside Glucose 227 mg/dL (70-110)
[2020-12-03 19:27] LABS: Erythrocyte Sedimentation Rate 105 mm/hr (0-20)
[2020-12-03 19:33] LABS: Lactic Acid 2.2 mmol/L (0.4-1.9)
[2020-12-03 19:46] LABS: Hemoglobin A1c 10.2 % (3.8-5.6)
[2020-12-03] MEDS: 0.9% Saline Lock 10 ML Syringe IV (20:28)
[2020-12-03] MEDS: 0.9% Normal Saline 1,000 ML 75 ML IV (20:29)
[2020-12-03] MEDS: Gabapentin 300 MG Capsule PO (20:30)
[2020-12-03 21:43] LABS: M R Staph aureus DNA By PCR Negative (Negative); Probe Check PASS; Specimen Processing Control PASS; Staph aureus DNA By PCR NEGATIVE (Negative)
[2020-12-03] MEDS: Menthol/Lanolin/Calamine/Znox 113 GM Tube 1 APPLIC TOPICAL (23:16)
[2020-12-03] MEDS: Nystatin Powder 15gm Bottle 1 APPLIC TOPICAL (23:16)
[2020-12-03] MEDS: Acetaminophen 325 MG Tablet 650 MG PO (23:30)
[2020-12-03 23:31] LABS: Bedside Glucose 249 mg/dL (70-110)
[2020-12-04] VITALS (17 sets, daily range): BP systolic 124–162; BP diastolic 50–98; PULSE 71–98; RESP 12–18; TEMP 36.1–37.3; O2SAT 94–100; BMI 58.8
[2020-12-04] MEDS: Insulin Lispro 100 UNIT/ML INSULN.PEN SC ×4 (00:07→21:37)
[2020-12-04 06:16] LABS: Absolute Neutrophil Count 4.2 X10^3/uL (2.0-7.7); Basophil# 0.03 X10^3/uL; Basophil% 0.5 % (0-1); Eosinophil# 0.17 X10^3/uL; Eosinophils% 2.7 % (0-5); Hematocrit 36.2 % (40-54); Hemoglobin 11.3 g/dL (13.0-16.5); Lymphocyte % 23.5 % (19-41); Mean Corp Hgb Conc 31.2 g/dL (32-36); Mean Corpuscular Hgb 26.3 pg (27.0-32.0); Mean Corpuscular Volume 84.4 fL (80-94); Mean Platelet Vol. 9.1 fl (6.2-12.0); Monocyte# 0.47 X10^3/uL; Monocyte% 7.4 % (0-10); NRBC Flagged by Analyzer 0 % (0-5); Neutrophil # 4.18 X10^3/uL (2.7-7.7); Neutrophil % 65.4 % (47-70); Platelet Count 268 K/mm3 (150-450); RBC Distribution Width CV 13.6 % (11.6-14.6); RBC Distribution Width SD 42.1 fl (35.1-43.9); Red Blood Count 4.29 M/mm3 (4.6-6.2); White Blood Count 6.4 K/mm3 (4.4-11.0)
[2020-12-04 06:34] LABS: Anion Gap 2 (5-15); BUN 8 mg/dL (7-18); BUN/Creat Ratio 12.3 RATIO (10-20); Calcium,Total 8.5 mg/dL (8.5-10.1); Chloride 101 mmol/L (98-107); Creatinine, Serum 0.65 mg/dL (0.70-1.30); EST Glomerular Filtration Rate 130 mL/min (>60); Est Glom Filt Rate - Afr Amer 158 mL/min (>60); Glucose 233 mg/dL (74-106); Potassium 3.8 mmol/L (3.5-5.1); Sodium Level 137 mmol/L (136-145)
--- NOTE | 2020-12-04 06:45 | PN.HOSP_ITS ---
Subjective Subjective Patient seen and examined. He was admitted witha complaint of a draining left foot wound which had been going on for a few days. Imaging done showed a broken left little toe. He had bedside X patient had debridement done by podiatry and is currently on IV vancomycin and cefepime. Patient also complained this morning. Pain is well controlled. Review of systems otherwise negative. He has remained hemodynamically stable. Objective Data Objective Data Vital Signs: Vital Signs Temp Pulse Resp BP Pulse Ox 99.6 F H 88 18 159/98 H 98 12/03/20 20:09 12/04/20 00:15 12/04/20 00:15 12/03/20 20:09 12/04/20 03:35 Oxygen Delivery Method Room Air Weight: 386 lb 11.053 oz Body Mass Index (BMI) 58.8 Intake & Output: Intake and Output for Last 24 Hours 12/02/20 12/03/20 12/04/20 23:59 23:59 23:59 Intake Total 867.25 / 867.25 275 / 275 Balance 867.25 / 867.25 275 / 275 Lab / Micro Data Result Diagrams: 12/04/20 05:56 12/04/20 05:56 Labs: Laboratory Results - last 24 hr 12/03/20 12/03/20 12/03/20 14:00 14:00 14:00 WBC 8.3 RBC 4.72 Hgb 12.5 L Hct 39.0 L MCV 82.6 MCH 26.5 L MCHC 32.1 RDW Std Deviation 40.3 RDW Coeff of Jada 13.5 Plt Count 310 MPV 9.1 Immature Gran % (Auto) 0.600 Neut % (Auto) 72.3 H Lymph % (Auto) 18.0 L [place] % (Auto) 7.0 Eos % (Auto) 1.6 Baso % (Auto) 0.5 Absolute Neuts (auto) 6.0 Absolute Lymphs (auto) 1.50 Nucleated RBC % 0 ESR PT 15.5 H INR 1.3 APTT 35.3 Sodium 136 Potassium 3.6 Chloride 101 Carbon Dioxide 30.0 Anion Gap 5 BUN 10 Creatinine 0.79 Estim Creat Clear Calc 70.30 Est GFR (MDRD) Af Amer 125 Est GFR (MDRD) Non-Af 104 BUN/Creatinine Ratio 12.6 Glucose 301 H Hemoglobin A1c Lactic Acid Calcium 8.6 Total Bilirubin 0.30 AST 28 ALT 43 Alkaline Phosphatase 88 Troponin I < 0.015 C-React Prot Ext Range Total Protein 7.4 Albumin 2.4 L Globulin 5.0 H Albumin/Globulin Ratio 0.5 L S.aureus Protein A PCR MRSA (PCR) POC Glucose 12/03/20 12/03/20 12/03/20 14:00 14:00 14:00 WBC RBC Hgb Hct MCV MCH MCHC RDW Std Deviation RDW Coeff of Jada Plt Count MPV Immature Gran % (Auto) Neut % (Auto) Lymph % (Auto) [place] % (Auto) Eos % (Auto) Baso % (Auto) Absolute Neuts (auto) Absolute Lymphs (auto) Nucleated RBC % ESR 105 H PT INR APTT Sodium Potassium Chloride Carbon Dioxide Anion Gap BUN Creatinine Estim Creat Clear Calc Est GFR (MDRD) Af Amer Est GFR (MDRD) Non-Af BUN/Creatinine Ratio Glucose Hemoglobin A1c Lactic Acid 3.2 H* Calcium Total Bilirubin AST ALT Alkaline Phosphatase Troponin I C-React Prot Ext Range 120.00 H Total Protein Albumin Globulin Albumin/Globulin Ratio S.aureus Protein A PCR MRSA (PCR) POC Glucose 12/03/20 12/03/20 12/03/20 14:00 18:00 18:21 WBC RBC Hgb Hct MCV MCH MCHC RDW Std Deviation RDW Coeff of Jada Plt Count MPV Immature Gran % (Auto) Neut % (Auto) Lymph % (Auto) [place] % (Auto) Eos % (Auto) Baso % (Auto) Absolute Neuts (auto) Absolute Lymphs (auto) Nucleated RBC % ESR PT INR APTT Sodium Potassium Chloride Carbon Dioxide Anion Gap BUN Creatinine Estim Creat Clear Calc Est GFR (MDRD) Af Amer Est GFR (MDRD) Non-Af BUN/Creatinine Ratio Glucose Hemoglobin A1c 10.2 H Lactic Acid 2.2 H* Calcium Total Bilirubin AST ALT Alkaline Phosphatase Troponin I C-React Prot Ext Range Total Protein Albumin Globulin Albumin/Globulin Ratio S.aureus Protein A PCR NEGATIVE MRSA (PCR) Negative POC Glucose 12/03/20 12/03/20 12/04/20 19:13 23:14 05:56 WBC 6.4 RBC 4.29 L Hgb 11.3 L Hct 36.2 L MCV 84.4 MCH 26.3 L MCHC 31.2 L RDW Std Deviation 42.1 RDW Coeff of Jada 13.6 Plt Count 268 MPV 9.1 Immature Gran % (Auto) 0.500 Neut % (Auto) 65.4 Lymph % (Auto) 23.5 [place] % (Auto) 7.4 Eos % (Auto) 2.7 Baso % (Auto) 0.5 Absolute Neuts (auto) 4.2 Absolute Lymphs (auto) 1.50 Nucleated RBC % 0 ESR PT INR APTT Sodium Potassium Chloride Carbon Dioxide Anion Gap BUN Creatinine Estim Creat Clear Calc Est GFR (MDRD) Af Amer Est GFR (MDRD) Non-Af BUN/Creatinine Ratio Glucose Hemoglobin A1c Lactic Acid Calcium Total Bilirubin AST ALT Alkaline Phosphatase Troponin I C-React Prot Ext Range Total Protein Albumin Globulin Albumin/Globulin Ratio S.aureus Protein A PCR MRSA (PCR) POC Glucose 227 H 249 H 12/04/20 05:56 WBC RBC Hgb Hct MCV MCH MCHC RDW Std Deviation RDW Coeff of Jada Plt Count MPV Immature Gran % (Auto) Neut % (Auto) Lymph % (Auto) [place] % (Auto) Eos % (Auto) Baso % (Auto) Absolute Neuts (auto) Absolute Lymphs (auto) Nucleated RBC % ESR PT INR APTT Sodium 137 Potassium 3.8 Chloride 101 Carbon Dioxide 34.0 H Anion Gap 2 L BUN 8 Creatinine 0.65 L Estim Creat Clear Calc 70.30 Est GFR (MDRD) Af Amer 158 Est GFR (MDRD) Non-Af 130 BUN/Creatinine Ratio 12.3 Glucose 233 H Hemoglobin A1c Lactic Acid Calcium 8.5 Total Bilirubin AST ALT Alkaline Phosphatase Troponin I C-React Prot Ext Range Total Protein Albumin Globulin Albumin/Globulin Ratio S.aureus Protein A PCR MRSA (PCR) POC Glucose Radiography Diagnostic Testing: Radiology Impression Foot X-Ray 12/03/20 14:01 IMPRESSION: Nondisplaced fracture of the base of the distal phalanx of the fifth toe with overlying soft tissue emphysema and soft tissue swelling. Electronically Signed: Amilcar León MD at 14:27 EDT , Service support , Physical Exam Const alert, oriented x3 and no apparent distress Exam Limitations: no limitations HEENT head/scalp atraumatic and moist oral mucous membranes Head and Scalp: normocephalic Eyes PERRL, EOMs intact bilaterally and conjunctivae normal Neck no lymphadenopathy, supple, no JVD and no carotid bruits Resp normal respiratory effort, no retractions, no use of accessory muscles and clear to auscultation bilaterally Cardio regular rate, regular rhythm, S1 normal heart sound, S2 normal heart sound and no murmurs GI normal to inspection, nondistended, normoactive bowel sounds, soft to palpation, non-tender and non-distended Extremity normal to inspection, full ROM and no clubbing, cyanosis or edema Peripheral Pulses: Yes pulses 2+ throughout Skin Skin Narrative: Left foot wrapped in bandage Neuro oriented x3, CN's II-XII intact bilaterally and moves all extremities Sensorium / Orientation: awake and alert Psych affect normal Assessment & Plan Assessment/Plan (1) Cellulitis and abscess of foot: (2) Foot fracture, left: PLAN: #Left foot cellulitis with facture of left little toe * podiatry on board. * s/p bedside debridement * on IV vancomycin and clindamycin * PT/OT on board. * Fall precautions * wound cultures pending * * #Atrial fibrillation * on eliquis and metoprolol. Eliquis on hold just in case he needs surgery * #Type 2 diabetes mellitus with peripheral neuropathy * on metformin and insulin lantus 30 units daily * on gabapentin * ISS. Accuchecks ACHS * #Hypertension; on amlodipine, metoprolol and losartan DVT prophylaxis: lovenox; eliquis on hold. Charges/Coding Visit Charges Inpatient E&M: 83366 Subs Hosp L2
[2020-12-04 06:46] LABS: Bedside Glucose 273 mg/dL (70-110)
--- NOTE | 2020-12-04 07:06 | PCM.PROGNOTE ---
Subjective Subjective Patient seen and examined resting comfortably bedside with CPAP on. Patient denies any new pedal complaints. Patient denies any nausea, fever, chills, chest pain, shortness of breath, cough, streaking, purulence, vomiting. Objective Data Objective Data Vital Signs: Vital Signs Temp Pulse Resp BP Pulse Ox 97.3 F L 78 18 144/78 H 99 12/04/20 06:44 12/04/20 06:44 12/04/20 06:44 12/04/20 06:44 12/04/20 06:44 Oxygen Delivery Method Bi-pap Weight: 175.4 kg Body Mass Index (BMI) 58.8 Intake & Output: Intake and Output for Last 24 Hours 12/02/20 12/03/20 12/04/20 23:59 23:59 23:59 Intake Total 867.25 / 867.25 701.25 / 701.25 Balance 867.25 / 867.25 701.25 / 701.25 Lab / Micro Data Result Diagrams: 12/04/20 05:56 12/04/20 05:56 Labs: Laboratory Results - last 24 hr 12/03/20 12/03/20 12/03/20 14:00 14:00 14:00 WBC 8.3 RBC 4.72 Hgb 12.5 L Hct 39.0 L MCV 82.6 MCH 26.5 L MCHC 32.1 RDW Std Deviation 40.3 RDW Coeff of Jada 13.5 Plt Count 310 MPV 9.1 Immature Gran % (Auto) 0.600 Neut % (Auto) 72.3 H Lymph % (Auto) 18.0 L [place] % (Auto) 7.0 Eos % (Auto) 1.6 Baso % (Auto) 0.5 Absolute Neuts (auto) 6.0 Absolute Lymphs (auto) 1.50 Nucleated RBC % 0 ESR PT 15.5 H INR 1.3 APTT 35.3 Sodium 136 Potassium 3.6 Chloride 101 Carbon Dioxide 30.0 Anion Gap 5 BUN 10 Creatinine 0.79 Estim Creat Clear Calc 70.30 Est GFR (MDRD) Af Amer 125 Est GFR (MDRD) Non-Af 104 BUN/Creatinine Ratio 12.6 Glucose 301 H Hemoglobin A1c Lactic Acid Calcium 8.6 Total Bilirubin 0.30 AST 28 ALT 43 Alkaline Phosphatase 88 Troponin I < 0.015 C-React Prot Ext Range Total Protein 7.4 Albumin 2.4 L Globulin 5.0 H Albumin/Globulin Ratio 0.5 L S.aureus Protein A PCR MRSA (PCR) POC Glucose 12/03/20 12/03/20 12/03/20 14:00 14:00 14:00 WBC RBC Hgb Hct MCV MCH MCHC RDW Std Deviation RDW Coeff of Jada Plt Count MPV Immature Gran % (Auto) Neut % (Auto) Lymph % (Auto) [place] % (Auto) Eos % (Auto) Baso % (Auto) Absolute Neuts (auto) Absolute Lymphs (auto) Nucleated RBC % ESR 105 H PT INR APTT Sodium Potassium Chloride Carbon Dioxide Anion Gap BUN Creatinine Estim Creat Clear Calc Est GFR (MDRD) Af Amer Est GFR (MDRD) Non-Af BUN/Creatinine Ratio Glucose Hemoglobin A1c Lactic Acid 3.2 H* Calcium Total Bilirubin AST ALT Alkaline Phosphatase Troponin I C-React Prot Ext Range 120.00 H Total Protein Albumin Globulin Albumin/Globulin Ratio S.aureus Protein A PCR MRSA (PCR) POC Glucose 12/03/20 12/03/20 12/03/20 14:00 18:00 18:21 WBC RBC Hgb Hct MCV MCH MCHC RDW Std Deviation RDW Coeff of Jada Plt Count MPV Immature Gran % (Auto) Neut % (Auto) Lymph % (Auto) [place] % (Auto) Eos % (Auto) Baso % (Auto) Absolute Neuts (auto) Absolute Lymphs (auto) Nucleated RBC % ESR PT INR APTT Sodium Potassium Chloride Carbon Dioxide Anion Gap BUN Creatinine Estim Creat Clear Calc Est GFR (MDRD) Af Amer Est GFR (MDRD) Non-Af BUN/Creatinine Ratio Glucose Hemoglobin A1c 10.2 H Lactic Acid 2.2 H* Calcium Total Bilirubin AST ALT Alkaline Phosphatase Troponin I C-React Prot Ext Range Total Protein Albumin Globulin Albumin/Globulin Ratio S.aureus Protein A PCR NEGATIVE MRSA (PCR) Negative POC Glucose 12/03/20 12/03/20 12/04/20 19:13 23:14 05:56 WBC 6.4 RBC 4.29 L Hgb 11.3 L Hct 36.2 L MCV 84.4 MCH 26.3 L MCHC 31.2 L RDW Std Deviation 42.1 RDW Coeff of Jada 13.6 Plt Count 268 MPV 9.1 Immature Gran % (Auto) 0.500 Neut % (Auto) 65.4 Lymph % (Auto) 23.5 [place] % (Auto) 7.4 Eos % (Auto) 2.7 Baso % (Auto) 0.5 Absolute Neuts (auto) 4.2 Absolute Lymphs (auto) 1.50 Nucleated RBC % 0 ESR PT INR APTT Sodium Potassium Chloride Carbon Dioxide Anion Gap BUN Creatinine Estim Creat Clear Calc Est GFR (MDRD) Af Amer Est GFR (MDRD) Non-Af BUN/Creatinine Ratio Glucose Hemoglobin A1c Lactic Acid Calcium Total Bilirubin AST ALT Alkaline Phosphatase Troponin I C-React Prot Ext Range Total Protein Albumin Globulin Albumin/Globulin Ratio S.aureus Protein A PCR MRSA (PCR) POC Glucose 227 H 249 H 12/04/20 12/04/20 05:56 06:38 WBC RBC Hgb Hct MCV MCH MCHC RDW Std Deviation RDW Coeff of Jada Plt Count MPV Immature Gran % (Auto) Neut % (Auto) Lymph % (Auto) [place] % (Auto) Eos % (Auto) Baso % (Auto) Absolute Neuts (auto) Absolute Lymphs (auto) Nucleated RBC % ESR PT INR APTT Sodium 137 Potassium 3.8 Chloride 101 Carbon Dioxide 34.0 H Anion Gap 2 L BUN 8 Creatinine 0.65 L Estim Creat Clear Calc 70.30 Est GFR (MDRD) Af Amer 158 Est GFR (MDRD) Non-Af 130 BUN/Creatinine Ratio 12.3 Glucose 233 H Hemoglobin A1c Lactic Acid Calcium 8.5 Total Bilirubin AST ALT Alkaline Phosphatase Troponin I C-React Prot Ext Range Total Protein Albumin Globulin Albumin/Globulin Ratio S.aureus Protein A PCR MRSA (PCR) POC Glucose 273 H Radiography Diagnostic Testing: Radiology Impression Foot X-Ray 12/03/20 14:01 IMPRESSION: Nondisplaced fracture of the base of the distal phalanx of the fifth toe with overlying soft tissue emphysema and soft tissue swelling. Electronically Signed: Amilcar León MD at 14:27 EDT , Service support , Physical Exam Const alert and no apparent distress General Appearance: cooperative and comfortable Resp normal respiratory effort Effort and Inspection: able to speak in complete sentences Extremity normal capillary refill and no calf tenderness General Extremity: edema bilateral lower extremity, no tenderness to palpation of joints or extremities and other findings Other Details: Capillary refill time less than 3 seconds noted to digits ; Negative for clubbing or cyanosis Skin General Skin Exam: atrophy and dry skin Rashes: no rashes Wounds: wounds noted Wound Narrative: ulcers noted to plantar lateral fifth MPJ left foot Mild malodor, erythema noted to entirety of foot unchanged, less purulence expressed, probes to bone and to dorsal foot, no fluctuation, no crepitus. Skin is atrophic and hairless. Fibrotic and necrotic base. Mild improvement from yesterday's exam Neuro Sensory Exam: extremities light-touch: absent Motor Exam: strength 5/5 throughout Psych Appearance: appropriate Attitude: calm Assessment & Plan Assessment/Plan (1) 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: (2) Cellulitis and abscess of foot: (3) Foot fracture, left: (4) Type 2 diabetes mellitus: (5) Bilateral leg edema: (6) Morbid obesity: PLAN: Patient seen and examined bedside Patient noted to have wound to plantar lateral aspect of left fifth MPJ area. Continue antibiotics Blood work reviewed showing no leukocytosis. ESR 105, CRP 120, albumin 2.4, Hgb a1c 10.2%. Wound cultures were pending. Blood cultures were pending. Elevated lactic acid noted. LEAS pending to assess healing potential. X-rays were reviewed showing fracture of the distal phalanx of the fifth digit. There is soft tissue emphysema noted. This communicates with the wound to the plantar lateral aspect of the foot upon clinical exam and correlation. Upon clinical exam and review of the chart and discussion with hospitalist it was determined that patient is stable enough with vital signs stable, no white cell count,resting comfortably and no systemic signs of illness that a bedside debridement would be adequate until more information can be gathered and patient be optimized for surgery tentatively at 1230 today MRI ordered to assess for possible osteomyelitis and extent of infection. Patient is scheduled for MRI at 9:00 this morning. Patient is tentatively scheduled for surgery at 1230 this afternoon. Will review MRI results and discuss them with the patient as well as surgical plan and options once this information becomes available. Discussed with the patient the need to go to surgery to at least clean up the wound more definitively. Discussed possibility of amputation pending results from MRI. Discussed possibility of need to amputate more than just the toe depending on MRI results. Discussed that even if we do amputation that he is likely going to still need wound care given the extent of the ulceration size. Discussed with the patient all risk associated with undergoing surgery as regards to COVID-19 exposure. Discussed all risks, benefits, alternatives, and complications including but not limited to infection, delayed healing, nonhealing, blood clots, amputation, possible , and/or need for further surgery with the patient. No guarantees were given or implied. Patient agreed to proceed with the procedure. All questions answered. Patient understands possible treatment course and will rediscuss after MRI. Discussed importance of smoking cessation, blood sugar control, weight management, offloading, proper nutrition, and hygiene to optimize healing potential. Patient is n.p.o. Patient tentatively on OR schedule for 1230 this afternoon for either I&D or amputation pending MRI results and discussion with the patient. This was communicated with patient's nurse. All questions answered Please contact if any questions or concerns Amelie Colvin DPM [facility] [phone] This note was generated with [employer] dictation software. It may contain incorrect words, spelling, and punctuation that were not noted in checking the note before signing.
--- NOTE | 2020-12-04 08:17 | RAD_ITS ---
STUDY: X-RAY - ORBITS REASON FOR EXAM: Male, 65 years old. H/O FB TECHNIQUE: 2 view(s) of the orbits were obtained. COMPARISON: None. FINDINGS: Normal bilateral orbits without a metallic orbital foreign body. Normal visualized facial bones. Opacification of the right maxillary sinus. The soft tissue structures are unremarkable. RAD/Orbits for Foreign Body IMPRESSION: No demonstrated metallic orbital foreign body. The patient is cleared for an MRI examination. Opacification of the right maxillary sinus. Electronically Signed: Amilcar León MD at 8:50 EDT , Service support ,
[2020-12-04] MEDS: 0.9% Saline Lock 10 ML Syringe IV ×2 (08:21→10:32)
--- NOTE | 2020-12-04 08:52 | NURSING ---
wound photo: left foot
--- NOTE | 2020-12-04 08:53 | NURSING ---
skin photo: left dorsal foot
--- NOTE | 2020-12-04 09:00 | MRI_ITS ---
STUDY: MRI LEFT FOREFOOT WITH AND WITHOUT CONTRAST REASON FOR EXAM: Male, 65 years old. Fracture with diabetic foot ulcer L 5TH MPJ TECHNIQUE: Standardized fat and water weighted pulse sequences were obtained in all 3 orthogonal planes, post contrast administration. IV 30cc dotarem was administered for the contrast portion of the examination. COMPARISON: X-ray dated 12/03/2020. FINDINGS: Extensive lateral soft tissue ulceration with soft tissue gas/packing material (sagittal image 5 series 8). Acute bone marrow destruction/marrow replacement at the fifth metatarsal head and fifth proximal phalanx base. Fragmentation/pathologic fracture at the fifth proximal phalange base. Extensive soft tissue enhancement at the lateral aspect of the foot with additional reactive/enhancing bone marrow edema at the fourth and fifth digits. Tear of the fifth digit flexor tendon (axial images 19 through 23 series 6). Fifth digit extensor tenosynovitis with tendinosis and tendon fraying (axial images 8 through 14 series 6). Remainder of the first through fourth flexor and extensor tendons intact. Diffuse soft tissue swelling/cellulitis with enhancement. Contrast enhancement at the ulceration bed without discrete rim-enhancing fluid collection. Fifth proximal phalangeal and metatarsophalangeal joint effusions with enhancement. Degenerative changes at the first through fifth digits with fourth digit hammertoe. Minimal tarsometatarsal joint arthrosis. Diffuse muscle atrophy with myositis. Normal Lisfranc ligament. MRI/Lower Ext No Joint W/WO Cont IMPRESSION: Acute enhancing osteomyelitis fifth metatarsal head and fifth proximal pharynx base osteomyelitis with pathologic fracture Acute fifth PIP and MCP joint effusions with enhancement (potential septic arthritis) Extensive lateral soft tissue ulceration with enhancement Fifth digit flexor tendon tear Fifth digit extensor tenosynovitis, tendinosis and tendon fraying Diffuse muscle atrophy with myositis Additional degenerative changes, as above Electronically Signed: Saqib Boggs DO at 11:14 EDT Tel , Service support ,
--- NOTE | 2020-12-04 11:30 | CASEMGMT ---
RN CM Face to Face with patient for initial transition planning/care coordination assessment. RN CM introduced self and role at [facility]. Patient lying in bed, alert and oriented. Patient willing to participate in assessment and is able to answer all questions appropriately. Care providers, pharmacy, and demographics verified. Patient wishes to discharge home, denies need for home health at this time. Patient states he has no further needs or concerns at this time. CM to follow for discharge planning needs that may arise. PCP: Mary Ann Specialists: [place] cardiac rehabilitation program director Preferred Pharmacy: [facility] [employer] Prescription Benefit: not sure Living Will/HPOA: none LNOK: son, sister Living Arrangements: Patient lives alone in a condo with 2 steps to enter. Patient states he is independent at home. 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 Patient denies previous HHC or SNF. Disposition Plan: Patient to discharge home with follow-up plans in place. Will monitor for need for HHC. Jazmín RODRIGUEZ, RN, CM
[2020-12-04] MEDS: Lidocaine 1% (30 ml sdv) 30 ML Vial (12:23)
[2020-12-04] MEDS: Bupivacaine Mpf 0.5% 30 ML VIAL (12:23)
--- NOTE | 2020-12-04 12:30 | AMP_PTH ---
PATIENT: LANI MARRERO LOC: MS3 U#:[id number] AGE/SX: 65/M ROOM: [facility] [place] RE12/03/[address]: Dr. Bakari Almaguer MD : [id number] BED: 1 DIS: 12/09/2020 SPEC #: [id number] RECD: 12/04/20 15:07 STATUS: JAIME SURAJ #: [id number] LINDSAY: 12/04/20 12:[address]: Amelie Colvin DEPT: SURGICAL PATHOLOGY RECD BY: Jacob Matos ENTERED: 12/05/20 07:53 SP TYPE: Amputation OTHR DR: MD Dr. Hilda Weinstein MD Dr. Nicholas F Kotsonis, MD Tissues: A - Toe, NOS B - Bone of foot, NOS Procedures: Decalcification bone/plaque Surgery Specimen Level IV HEADER OPERATION: Partial amputation fifth ray PRE-OP DIAGNOSIS: Cellulitis and abscess foot; left foot fracture; skin ulcer of plantar aspect of left foot with necrosis of bone TISSUE SUBMITTED: A ? Left foot fifth digit, B ? Left foot fifth met bone proximal margin MICROSCOPIC DIAGNOSIS A. Left foot, fifth digit, amputation: Skin and soft tissue with ulceration and acute and chronic inflammation. Bone with acute osteomyelitis. B. Left foot, fifth metatarsal bone proximal margin, bone, biopsy: Reparative and reactive change. No evidence of acute osteomyelitis. AM:hansel 12/10/2020 MICROSCOPIC DESCRIPTION Slides are reviewed. GROSS DESCRIPTION A - Received in fixative is one container labeled with the patient's name and designated left foot fifth digit. The specimen consists of a portion of toe measuring 4 x 2.5 x 2.5 cm. A focal area of ulceration is noted on the dorsal surface measuring 0.5 cm in greatest dimension. Also present in the container are two detached pieces of bone measuring in aggregate 3 x 2.5 x 1 cm. Aviculturist sections are submitted in three cassettes as follows: 1 ? ulcerated area, 2 & 3 ? bone after decalcification. B - Received in fixative is one container labeled with the patient's name and designated left foot fifth metatarsal bone proximal margin. The specimen consists of a piece of bone measuring 0.6 x 0.5 x 0.1 cm. The entire specimen is submitted in one cassette after decalcification. / SJ:hansel 12/05/20 TC:3 CPT: 52347 x2, 10691 x2
--- NOTE | 2020-12-04 12:32 | OP.PCM_ITS ---
Problems Associated Problem List Diagnoses (1) Osteomyelitis: (2) Cellulitis and abscess of foot: (3) Foot fracture, left: (4) 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: (5) Morbid obesity: (6) Type 2 diabetes mellitus: (7) Diabetes: Report of Operation Date of Procedure: 12/04/20 Pre-Operative Diagnosis: left foot pathologic fracture 5th digit abscess left foot osteomyelitis left 5th MPJ foot ulcer left 5th MPJ to bone diabetes with neuropathy and hyperglycemia morbid obesity Post-Operative Diagnosis: same Surgery/Procedure Performed:: partial 5th ray amputation left foot Description of Surgical Findings:: materials: 2-0 vicryl, 3-0 nylon, surgicel and octavio injection: 20cc 1:1 mix 1% lidocaine plain and 0.5% marcaine plain in an ankle block hemostasis: left ankle tourniquet 250mmHg wound size: 3.5 x 4 x 3.5 cm Surgeon: Amelie Colvin lithograph press operator: None (Helga Lucero PGY2) Type of Anesthesia: Local MAC Specimen's removed: left 5th toe left 5th metatarsal bone proximal margin left foot culture swab Estimated Blood Loss (mL): 100 Description of Procedure: indications for procedure: Patient is a 65-year-old male who presented to the emergency room with left foot wound and infection. Patient at states that he does not take his feet daily and thinks it is around 3 days old. Patient was seen by myself in the emergency department where initial debridement of the ulceration was carried out. There is purulent drainage and malodor expressed at this time. Wound was noted to probe to bone. Patient was noted to have emphysema on x-ray correlating with the wound on clinical exam. Admission labs were unremarkable except for an elevated lactic acid level. Patient demonstrated no systemic signs of infection. Discussed with the hospitalist the patient could wait until next day for further work-up and surgical optimization prior to going to surgery. Is discussed with patient upon getting MRI that the fifth metatarsal and digit showed signs of osteomyelitis. Discussed conservative versus surgical treatment options with the patient. Patient opted to go with amputation of the partial fifth ray. Patient is aware that given the size of deficit of the ulceration to his plantar foot that there is very little chance that the wound be able to close completely upon amputation. Patient understands that there will be needed future wound care in order to complete the healing process. Patient is aware that he has elevated risk factors for healing complications including diabetes with a hemoglobin A1c of 10.2, morbid obesity, history of previous foot ulcerations, neuropathy, poor nutritional status with an albumin of 2.4. Discussed with the patient all risk associated with undergoing surgery as regards to COVID-19 exposure. Discussed all risks, benefits, alternatives, and complications including but not limited to infection, delayed healing, nonhealing, blood clots, amputation, possible , and/or need for further surgery with the patient. No guarantees were given or implied. Patient agreed to proceed with the procedure. All questions answered. Description of the procedure: Patient was seen in the preoperative holding area where the chart was reviewed and patient was examined all questions were answered to patient satisfaction. Patient was then transferred to the OR remained on the cart in the supine position. After administration of IV line IV sedation an additional local anesthetic was injected in an ankle block type fashion patient's operative foot. A well-padded ankle tourniquet was applied but not inflated at this time. The operative foot and ankle were then prepped and draped in the usual sterile fashion. The foot was then exsanguinated with an Esmarch bandage and the ankle tourniquet was inflated to 250 mmHg and then lowered onto the sterile field. A racquet type incision was drawn out on the fifth digit along with excision of the plantar fifth metatarsal head ulceration. A 15 blade was then introduced and going down to level of bone through the dermal and epidermal and subcutaneous tissue with all vital neurovascular retracted or cauterized as necessary. Purulent drainage was encountered. The toe was disarticulated at the level of the metatarsophalangeal joint. It is noted that the fracture to the phalanx was visualized with all pieces removed. Dissection was further carried out in order to expose the fifth metatarsal head. Sagittal saw was introduced to make a through and through cut in a dorsal distal lateral to proximal medial plantar cut. The toe and metatarsal head was sent to pathology as specimen. The remaining bone was healthy in appearance with no signs of infection noted. Sharp excisional nonselective debridement was carried out into the level of muscle with a pickup and 15 blade to the remaining ulceration of the left plantar lateral foot with removal of all devitalized, slough, biofilm, and fibrous tissue including muscle, fat. After removal of all other devitalized tissue the site was then irrigated with Versajet debridement and saline. No further purulent drainage was expressed. There was noted to be a bleeder to the plantar aspect of the foot. This was controlled with a combination of cauterization, suture with 2-0 Vicryl, Surgicel and Octavio. The Surgicel and Octavio also assisted in controlling overall bleeding from muscle and skin tissue. Once the bleeding was well controlled a further proximal margin of the fifth metatarsal was taken with the sagittal saw in the same orientation as previous cut. This was sent To microbiology and half to pathology. Swab cultures were also obtained and sent for aerobic anaerobic acid-fast and fungal. The site was then closed to the proximal and distal aspect is much as possible with 3-0 nylon. Wound was unable to be closed centrally due to a large ulcer deficit. Given the amount of bleeding and noted bleeder it was decided to defer wound VAC application until the postop period. Site was dressed with quarter inch iodoform packing, 4 x 4's, ABDs, Kerlix, Matthew wrap. It should be noted that the wound edges had prompt brisk capillary refill time. The ankle tourniquet was deflated with a prompt brisk hyperemic response in all digits of the patient left foot that are remaining. The patient was then transferred from the OR to PACU with vital signs stable and vascular status intact. Patient will be readmitted to the floor and podiatry will continue to follow. We will start wound VAC therapy and postop period. Podiatry will continue to follow on the floor and will be seen at the wound care center upon discharge. Patient to be nonweightbearing to the left lower extremity. Physical therapy work with patient on this given his morbid obesity this may be difficult for the patient. Complications none Admit VTE Documentation VTE Present on Admission: Yes VTE Mechan Device Prophylaxis: SCD's VTE Pharm Prophylaxis ordered?: Yes
--- NOTE | 2020-12-04 14:06 | RAD_ITS ---
STUDY: X-RAY - LEFT FOOT CLINICAL: Male, 65 years old. Postop. TECHNIQUE: 3 view(s) of the foot. COMPARISON: Left foot, 12/03/2020. FINDINGS: There are enthesophytes at the insertions of the Achilles tendon and plantar aponeurosis upon an otherwise normal calcaneus. Stable talus and tarsal bones. Hemarthrosis of the visualized subtalar, talonavicular, calcaneocuboid, tarsal and tarsometatarsal articulations. There is amputation of the fifth digit at the mid metatarsal level. Otherwise normal metatarsi. Normal metatarsophalangeal joint of the great toe. Normal tibial and fibular sesamoid bones. Normal interphalangeal joint of the great toe. Normal phalanges of the great toe. Normal second through fourth metatarsophalangeal joints. Normal interphalangeal joints and phalanges of the remaining lesser toes. Soft tissue abnormality in the lateral forefoot. RAD/Foot min 3 Views IMPRESSION: Status post mid metatarsal amputation of the fifth ray. Electronically Signed: Deion Pederson DO at 17:20 EDT Tel [phone], Service support ,
[2020-12-04 15:54] LABS: Vancomycin, Trough Level 11.2 ug/mL (5.0-15.0)
[2020-12-04 16:35] LABS: Bedside Glucose 232 mg/dL (70-110)
[2020-12-04 16:40] LABS: Bedside Glucose 180 mg/dL (70-110)
[2020-12-04 16:44] LABS: M R Staph aureus DNA By PCR Negative (Negative); Probe Check PASS; Specimen Processing Control PASS; Staph aureus DNA By PCR NEGATIVE (Negative)
[2020-12-04] MEDS: amLODIPine 5 MG Tablet PO (17:00)
--- NOTE | 2020-12-04 17:52 | PCM.RX.CS ---
Consult Pharmacy has been consulted to manage selected antiobiotic: Vancomycin Type of Consult: Follow-up Suspected Infection: Skin/Soft tissue Prior Doses of Antibiotics Received/Current Regimen: Currently on 1250mg iv q8h. Labs: Sodium 137 mmol/L (136-145) 12/04/20 05:56 Potassium 3.8 mmol/L (3.5-5.1) 12/04/20 05:56 Chloride 101 mmol/L (98-107) 12/04/20 05:56 Carbon Dioxide 34.0 mmol/L (21.0-32.0) H 12/04/20 05:56 Anion Gap 2 (5-15) L 12/04/20 05:56 BUN 8 mg/dL (7-18) 12/04/20 05:56 Creatinine 0.65 mg/dL (0.70-1.30) L 12/04/20 05:56 Est GFR (MDRD) Af Amer 158 mL/min (>60) 12/04/20 05:56 Est GFR (MDRD) Non-Af 130 mL/min (>60) 12/04/20 05:56 BUN/Creatinine Ratio 12.3 RATIO (10-20) 12/04/20 05:56 Glucose 233 mg/dL (74-106) H 12/04/20 05:56 Vancomycin Trough 11.2 ug/mL (5.0-15.0) 12/04/20 15:08 Microbiology: Microbiology 12/03/20 18:00 Wound - Left Foot Gram Stain - Final 12/03/20 18:00 Wound - Left Foot Wound Culture - Preliminary Gram negative [place] Alpha hemolytic organism Gram positive organism 12/04/20 10:55 Mucosa - Nose SARS-CoV-2 Antigen (Rapid) - Final Weight used for dosin kg Estimated Creatinine Clearance: >120ml/min Goal Trough: 15-20 mcg/mL Pharmacy Plan for Drug Dosing: Today's trough was 11.2 with goal range of 15-20mcg/ml. Renal function of Cr 0.65 with calculated CrCl of >120ml/min using Adjusted Body Weight of 114kg). Will increase dose to 1750mg iv q8h per pharmacokinetic protocol. A repeat trough level ordered for 12.05.20 before 4th dose of new regimen. Pharmacy Service will continue to monitor and adjust dosing as required. Follow-Up Labs: Trough Vancomycin - 12.05.20 @2230 before 2300 dose
[2020-12-04] MEDS: Metoprolol(XL)Succ 100 MG Tablet PO (18:38)
[2020-12-04] MEDS: Losartan Potassium 100 MG Tablet PO (18:38)
[2020-12-04] MEDS: 0.9% Normal Saline 1,000 ML 75 ML IV (21:35)
[2020-12-04] MEDS: Gabapentin 300 MG Capsule PO (21:36)
[2020-12-04 22:00] LABS: Bedside Glucose 281 mg/dL (70-110)
[2020-12-05] VITALS (9 sets, daily range): BP systolic 125–140; BP diastolic 51–73; PULSE 82–94; RESP 12–19; TEMP 36.7–36.9; O2SAT 95–98
[2020-12-05] MEDS: Insulin Lispro 100 UNIT/ML INSULN.PEN SC ×4 (06:37→21:55)
--- NOTE | 2020-12-05 07:16 | PN_ITS ---
Subjective Subjective Patient seen and examined resting comfortably. Patient denies any new pedal complaints. Patient denies any nausea, fever, chills, chest pain, shortness of breath, cough, streaking, purulence, vomiting. Patient relates some bleeding overnight after walking on his foot after surgery. Objective Data Objective Data Vital Signs: Vital Signs Temp Pulse Resp BP Pulse Ox 98.1 F 85 16 140/73 H 98 12/05/20 02:15 12/05/20 02:15 12/05/20 02:15 12/05/20 02:15 12/05/20 02:23 Oxygen Flow Rate (L/min) 1 Oxygen Delivery Method Bi-pap Weight: 175.4 kg Body Mass Index (BMI) 58.8 Intake & Output: Intake and Output for Last 24 Hours 12/03/20 12/04/20 12/05/20 23:59 23:59 23:59 Intake Total 867.25 / 867.25 2195.00 / 2195.00 960 / 960 Output Total 450 / 450 Balance 867.25 / 867.25 1745.00 / 1745.00 960 / 960 Lab / Micro Data Result Diagrams: 12/05/20 07:26 12/05/20 07:26 Labs: Laboratory Results - last 24 hr 12/04/20 12/04/20 12/04/20 11:22 15:08 16:34 Vancomycin Trough 11.2 S.aureus Protein A PCR MRSA (PCR) POC Glucose 232 H 180 H 12/04/20 12/04/20 21:34 Unknown Vancomycin Trough S.aureus Protein A PCR NEGATIVE MRSA (PCR) Negative POC Glucose 281 H Micro: Microbiology 12/03/20 18:00 Wound - Left Foot Gram Stain - Final 12/03/20 18:00 Wound - Left Foot Wound Culture - Preliminary Gram negative [place] Alpha hemolytic organism Gram positive organism 12/04/20 10:55 Mucosa - Nose SARS-CoV-2 Antigen (Rapid) - Final Radiography Diagnostic Testing: Radiology Impression Venous Doppler Study 12/03/20 18:59 Interpretation Summary No evidence for acute deep venous thrombosis bilateral lower extremities with patent and compressible bilateral great saphenous veins. Ordering Physician: Bernabe Adams Referring Physician: Bernabe Reese Performed By: Jazmín Roy RVT and Student [facility] 12/04/20 08:17 IMPRESSION: No demonstrated metallic orbital foreign body. The patient is cleared for an MRI examination. Opacification of the right maxillary sinus. Electronically Signed: Amilcar León MD at 8:50 EDT , Service support , Lower Extremity MRI 12/04/20 09:00 IMPRESSION: Acute enhancing osteomyelitis fifth metatarsal head and fifth proximal pharynx base osteomyelitis with pathologic fracture Acute fifth PIP and MCP joint effusions with enhancement (potential septic arthritis) Extensive lateral soft tissue ulceration with enhancement Fifth digit flexor tendon tear Fifth digit extensor tenosynovitis, tendinosis and tendon fraying Diffuse muscle atrophy with myositis Additional degenerative changes, as above Electronically Signed: Saqib Boggs DO at 11:14 EDT Tel , Service support , Foot X-Ray 12/04/20 14:06 IMPRESSION: Status post mid metatarsal amputation of the fifth ray. Electronically Signed: Deion Pederson DO at 17:20 EDT Tel [phone], Service support , Physical Exam Const alert and no apparent distress General Appearance: cooperative and comfortable Resp normal respiratory effort Effort and Inspection: able to speak in complete sentences Extremity normal capillary refill and no calf tenderness General Extremity: edema bilateral lower extremity, no tenderness to palpation of joints or extremities and other findings Other Details: Capillary refill time less than 3 seconds noted to digits ; Negative for clubbing or cyanosis Skin General Skin Exam: atrophy and dry skin Rashes: no rashes Wounds: wounds noted Wound Narrative: ulcers noted to plantar lateral fifth MPJ left foot No malodor, erythema noted to foot improved, no purulence expressed, probes to bone and to dorsal foot, no fluctuation, no crepitus. Skin is atrophic and hairless. Fibrotic and necrotic base. Mild improvement from yesterday's exam. Proximal and distal sutures noted with central deficit. A lot of sanguinous drainage noted. No active bleeding noted. Mild maceration to proximal aspect of wound with minimal duskiness noted Partial fifth ray amputation left foot Neuro Sensory Exam: extremities light-touch: absent Motor Exam: strength 5/5 throughout Psych Appearance: appropriate Attitude: calm Assessment & Plan Assessment/Plan (1) Cellulitis and abscess of foot: (2) Foot fracture, left: (3) 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: (4) Morbid obesity: (5) Type 2 diabetes mellitus: (6) Diabetes: (7) Osteomyelitis: PLAN: Patient seen and examined bedside Patient noted to have wound to plantar lateral aspect of left fifth MPJ area with sutures intact to proximal distal aspect status post partial fifth ray amputation 12/04/2020. Patient is aware that there is an ulcer deficit from the wound and amputation that was note able to close during surgery. This will be treated with wound care. Continue antibiotics. Follow or cultures. Blood work reviewed showing no leukocytosis. ESR 105, CRP 120, albumin 2.4, Hgb a1c 10.2%. OR Wound cultures were pending. Blood cultures were pending. Initial wound cultures noted to be growing gram-positive organism, alphahemolytic o rganism, gram-negative rods. LEAS pending to assess healing potential. MRI of left foot showed osteomyelitis of the fifth metatarsal head and digit. Postop x-ray was reviewed showing partial fifth ray amputation left foot Discussed importance of smoking cessation, blood sugar control, weight man agement, offloading, proper nutrition, and hygiene to optimize healing potential. Plan to discharge on wound VAC therapy. Would like physical therapy to work with patient to limit weightbearing especially to the forefoot so as to not break seal on the VAC therapy and optimize healing potentials. Recommend nonweightbearing to the left foot but can put some weight through the heel if necessary. Discussed with the patient the importance of nonweightbearing to allow healing. Also discussed that if he walks on it is likely that the wound can bleed more and that will limit our ability to put different various dressings on that can assist in healing. It is noted that patient walked on it yesterday to the bathroom and had some breakthrough bleeding after the surgery. Patient nurse called me about a patient nursing was staff was able to change the dressing without breakthrough drainage. There is no current active drainage. Discussed starting wound vac later today with nursing. All questions answered Please contact if any questions or concerns. Patient is to follow-up at the wound care center with myself upon discharge in 1 week or in office if unable to get into wound care center. Amelie Colvin DPM [facility] [phone] This note was generated with [employer] dictation software. It may contain incorrect words, spelling, and punctuation that were not noted in checking the note before signing.
--- NOTE | 2020-12-05 07:21 | PN.HOSP_ITS ---
Subjective Subjective Patient seen and examined. He had partial ray amputation of hte left little toe yesterday.Today is POD 1. He has no complaints and pain is well controlled. REview of systems is otherwise negative. Objective Data Objective Data Vital Signs: Vital Signs Temp Pulse Resp BP Pulse Ox 98.1 F 85 16 140/73 H 98 12/05/20 02:15 12/05/20 02:15 12/05/20 02:15 12/05/20 02:15 12/05/20 02:23 Oxygen Flow Rate (L/min) 1 Oxygen Delivery Method Bi-pap Weight: 386 lb 11.053 oz Body Mass Index (BMI) 58.8 Intake & Output: Intake and Output for Last 24 Hours 12/03/20 12/04/20 12/05/20 23:59 23:59 23:59 Intake Total 867.25 / 867.25 2195.00 / 2195.00 960 / 960 Output Total 450 / 450 Balance 867.25 / 867.25 1745.00 / 1745.00 960 / 960 Lab / Micro Data Result Diagrams: 12/04/20 05:56 12/04/20 05:56 Labs: Laboratory Results - last 24 hr 12/04/20 12/04/20 12/04/20 11:22 15:08 16:34 Vancomycin Trough 11.2 S.aureus Protein A PCR MRSA (PCR) POC Glucose 232 H 180 H 12/04/20 12/04/20 21:34 Unknown Vancomycin Trough S.aureus Protein A PCR NEGATIVE MRSA (PCR) Negative POC Glucose 281 H Micro: Microbiology 12/03/20 18:00 Wound - Left Foot Gram Stain - Final 12/03/20 18:00 Wound - Left Foot Wound Culture - Preliminary Gram negative [place] Alpha hemolytic organism Gram positive organism 12/04/20 10:55 Mucosa - Nose SARS-CoV-2 Antigen (Rapid) - Final Radiography Diagnostic Testing: Radiology Impression Venous Doppler Study 12/03/20 18:59 Interpretation Summary No evidence for acute deep venous thrombosis bilateral lower extremities with patent and compressible bilateral great saphenous veins. ____ Ordering Physician: Bernabe Adams Referring Physician: Bernabe Reese Performed By: Jazmín Roy RVT and Student [facility] 12/04/20 08:17 IMPRESSION: No demonstrated metallic orbital foreign body. The patient is cleared for an MRI examination. Opacification of the right maxillary sinus. Electronically Signed: Amilcar León MD at 8:50 EDT , Service support , Lower Extremity MRI 12/04/20 09:00 IMPRESSION: Acute enhancing osteomyelitis fifth metatarsal head and fifth proximal pharynx base osteomyelitis with pathologic fracture Acute fifth PIP and MCP joint effusions with enhancement (potential septic arthritis) Extensive lateral soft tissue ulceration with enhancement Fifth digit flexor tendon tear Fifth digit extensor tenosynovitis, tendinosis and tendon fraying Diffuse muscle atrophy with myositis Additional degenerative changes, as above Electronically Signed: Saqib Boggs DO at 11:14 EDT Tel , Service support , Foot X-Ray 12/04/20 14:06 IMPRESSION: Status post mid metatarsal amputation of the fifth ray. Electronically Signed: Deion Pederson DO at 17:20 EDT Tel [phone], Service support , Physical Exam Const alert, oriented x3 and no apparent distress Exam Limitations: no limitations HEENT head/scalp atraumatic and moist oral mucous membranes Head and Scalp: normocephalic Eyes PERRL, EOMs intact bilaterally and conjunctivae normal Neck no lymphadenopathy, supple, no JVD and no carotid bruits Resp normal respiratory effort, no retractions, no use of accessory muscles and clear to auscultation bilaterally Cardio regular rate, regular rhythm, S1 normal heart sound, S2 normal heart sound and no murmurs GI normal to inspection, nondistended, normoactive bowel sounds, soft to palpation, non-tender and non-distended Extremity normal to inspection, full ROM and no clubbing, cyanosis or edema Skin Skin Narrative: Left foot wrapped in bandage Neuro oriented x3, CN's II-XII intact bilaterally and moves all extremities Sensorium / Orientation: awake and alert Psych affect normal Assessment & Plan Assessment/Plan (1) Cellulitis and abscess of foot: (2) Foot fracture, left: PLAN: #Left foot cellulitis with facture of left little toe * s/p partial ray amputation of left little toe. Today is POD 1 * MRI showed acute enhancing osteomyelitis of the fifth metatarsal head and proximal fifth phalangeal base osteomyelitis with pathologic fracture, acute fifth PIP and MCP joint effusion siwth enhancement and extgensive lateral soft tissue ulceration with enhancement,as well as diffuse muscle atrophy with myositis. * podiatry on board. * s/p bedside debridement * on IV vancomycin and clindamycin * PT/OT on board. * Fall precautions * wound cultures pending * * #Atrial fibrillation * on eliquis and metoprolol. eliquis held o/a of surgery; to resume when ok with podiatry * #Type 2 diabetes mellitus with peripheral neuropathy * on metformin and insulin lantus 30 units daily * on gabapentin * ISS. Accuchecks ACHS * #Hypertension; on amlodipine, metoprolol and losartan DVT prophylaxis: lovenox; eliquis on hold. Charges/Coding Visit Charges Inpatient E&M: 79710 Subs Hosp L3
[2020-12-05 07:39] LABS: Absolute Lymphocyte Count 1.38 X10^3/uL (0.83-4.51); Basophil# 0.05 X10^3/uL; Basophil% 0.7 % (0-1); Eosinophil# 0.14 X10^3/uL; Hematocrit 37.4 % (40-54); Hemoglobin 11.4 g/dL (13.0-16.5); Lymphocyte # 1.38 X10^3/ul (0.83-4.51); Lymphocyte % 19.6 % (19-41); Mean Corp Hgb Conc 30.5 g/dL (32-36); Mean Corpuscular Volume 85.2 fL (80-94); Monocyte# 0.41 X10^3/uL; Monocyte% 5.8 % (0-10); NRBC Flagged by Analyzer 0 % (0-5); Neutrophil # 5.02 X10^3/uL (2.7-7.7); Neutrophil % 71.3 % (47-70); Platelet Count 321 K/mm3 (150-450); RBC Distribution Width CV 13.7 % (11.6-14.6); RBC Distribution Width SD 42.6 fl (35.1-43.9); Red Blood Count 4.39 M/mm3 (4.6-6.2)
[2020-12-05 07:57] LABS: Anion Gap 4 (5-15); BUN 7 mg/dL (7-18); BUN/Creat Ratio 10.8 RATIO (10-20); Calcium,Total 8.1 mg/dL (8.5-10.1); Chloride 102 mmol/L (98-107); Creatinine, Serum 0.65 mg/dL (0.70-1.30); EST Glomerular Filtration Rate 131 mL/min (>60); Est Glom Filt Rate - Afr Amer 158 mL/min (>60); Glucose 240 mg/dL (74-106); Potassium 3.9 mmol/L (3.5-5.1); Sodium Level 138 mmol/L (136-145)
[2020-12-05] MEDS: amLODIPine 5 MG Tablet PO (08:07)
[2020-12-05] MEDS: Metoprolol(XL)Succ 100 MG Tablet PO (08:07)
[2020-12-05] MEDS: Losartan Potassium 100 MG Tablet PO (08:07)
[2020-12-05] MEDS: Enoxaparin 40 MG/0.4 ML Syringe SC (08:08)
--- NOTE | 2020-12-05 10:30 | CASEMGMT ---
Addendum entered by Jazmín Leon 12/05/20 13:38: ZEN GOODE in to get preferences for SNF. [facility] and [facility]. ZEN GOODE updated [facility] Ascencio. Original Note: ZEN GOODE in to discuss discharge planning with patient. Patient will need wound vac at discharge and maintain non-weightbearing to lower extremity. Patient states he would like to go to a SNF at discharge. Patient was provided a list of SNF providers including quality and resource use data and consistent with the patient?s preferred geographic region, medical needs, and insurance network. Patient to review list and provide preferences. [facility] Ascencio updated regarding SNF request.
[2020-12-05 11:26] LABS: Bedside Glucose 248 mg/dL (70-110)
[2020-12-05 11:35] LABS: Bedside Glucose 291 mg/dL (70-110)
[2020-12-05] MEDS: Acetaminophen 325 MG Tablet 650 MG PO (12:11)
--- NOTE | 2020-12-05 15:11 | CASEMGMT ---
Addendum entered by Emilia Ascecnio 12/05/20 15:54: [facility] is not able to take pt as he is over their weight limit of 350 lbs. [facility] called [facility], they also cannot take pts over 350lbs. [facility] called [facility], message left for Jazmín, faxed referral. [facility] will follow up on Tuesday. PRANAV Queen Original Note: Referral faxed to [facility], [facility] called and asked Radha to let [facility] know if they can take pt. It is anticipated pt will be here through the weekend while IV antibiotics and wound care needs get finalized. PRANAV Queen
[2020-12-05 17:35] LABS: Bedside Glucose 273 mg/dL (70-110)
[2020-12-05] MEDS: Gabapentin 300 MG Capsule PO (21:43)
[2020-12-05] MEDS: Menthol/Lanolin/Calamine/Znox 113 GM Tube 1 APPLIC TOPICAL (21:44)
[2020-12-05] MEDS: Nystatin Powder 15gm Bottle 1 APPLIC TOPICAL (21:44)
[2020-12-05 22:35] LABS: Bedside Glucose 271 mg/dL (70-110)
[2020-12-05 22:58] LABS: Vancomycin, Trough Level 21.5 ug/mL (5.0-15.0)
[2020-12-05] MEDS: 0.9% Normal Saline 1,000 ML 75 ML IV (23:02)
--- NOTE | 2020-12-05 23:15 | PCM.RX.CS ---
Consult Pharmacy has been consulted to manage selected antiobiotic: Vancomycin Type of Consult: Follow-up Suspected Infection: Skin/Soft tissue Labs: Sodium 138 mmol/L (136-145) 12/05/20 07:26 Potassium 3.9 mmol/L (3.5-5.1) 12/05/20 07:26 Chloride 102 mmol/L (98-107) 12/05/20 07:26 Carbon Dioxide 32.0 mmol/L (21.0-32.0) 12/05/20 07:26 Anion Gap 4 (5-15) L 12/05/20 07:26 BUN 7 mg/dL (7-18) 12/05/20 07:26 Creatinine 0.65 mg/dL (0.70-1.30) L 12/05/20 07:26 Est GFR (MDRD) Af Amer 158 mL/min (>60) 12/05/20 07:26 Est GFR (MDRD) Non-Af 131 mL/min (>60) 12/05/20 07:26 BUN/Creatinine Ratio 10.8 RATIO (10-20) 12/05/20 07:26 Glucose 240 mg/dL (74-106) H 12/05/20 07:26 Vancomycin Trough 21.5 ug/mL (5.0-15.0) H 12/05/20 22:27 Microbiology: Microbiology 12/04/20 Unknown Bone - Left Foot Gram Stain - Final 12/04/20 Unknown Bone - Left Foot Wound Culture - Preliminary Beta hemolytic organism 12/03/20 18:00 Wound - Left Foot Gram Stain - Final 12/03/20 18:00 Wound - Left Foot Wound Culture - Preliminary Gram negative [facility] Poss Enterococcus sp Streptococcus agalactiae (B) 12/03/20 18:00 Wound - Left Foot Anaerobic Culture - Preliminary Checking for anaerobes, further studies to follow. 12/03/20 14:20 Blood Culture (Wb) - Anticubital Left Blood Culture - Preliminary No growth in 48 hours. 12/03/20 14:00 Blood Culture (Wb) - Anticubital Right Blood Culture - Preliminary No growth in 48 hours. 12/04/20 Unknown Wound - Left Foot Gram Stain - Final 12/04/20 Unknown Wound - Left Foot Wound Culture - Preliminary No growth-Final to follow 12/04/20 10:55 Mucosa - Nose SARS-CoV-2 Antigen (Rapid) - Final Goal Trough: 15-20 mcg/mL Pharmacy Plan for Drug Dosing: Pharmacy Service will continue to monitor and adjust dosing as required. TROUGH 21.5 D/C CURRENT BAG AND ORDER, DRAW RANDOM LEVEL 12/06 @ 0700 AND REDOSE Labs to be done on [date and time ordered]: 12/06 @ 0700
[2020-12-06] VITALS (9 sets, daily range): BP systolic 135–150; BP diastolic 65–93; PULSE 68–97; RESP 14–19; TEMP 36.8–37; O2SAT 94–97
[2020-12-06] MEDS: 0.9% Saline Lock 10 ML Syringe IV (02:35)
[2020-12-06] MEDS: Insulin Lispro 100 UNIT/ML INSULN.PEN SC ×4 (06:34→21:30)
[2020-12-06 06:54] LABS: Absolute Lymphocyte Count 1.42 X10^3/uL (0.83-4.51); Absolute Neutrophil Count 3.7 X10^3/uL (2.0-7.7); Basophil# 0.03 X10^3/uL; Basophil% 0.5 % (0-1); Eosinophil# 0.14 X10^3/uL; Eosinophils% 2.4 % (0-5); Hematocrit 32.1 % (40-54); Hemoglobin 10.1 g/dL (13.0-16.5); Lymphocyte # 1.42 X10^3/ul (0.83-4.51); Lymphocyte % 24.6 % (19-41); Mean Corp Hgb Conc 31.5 g/dL (32-36); Mean Corpuscular Hgb 26.2 pg (27.0-32.0); Mean Corpuscular Volume 83.4 fL (80-94); Mean Platelet Vol. 9.2 fl (6.2-12.0); Monocyte# 0.43 X10^3/uL; Monocyte% 7.4 % (0-10); NRBC Flagged by Analyzer 0 % (0-5); Neutrophil # 3.73 X10^3/uL (2.7-7.7); Neutrophil % 64.6 % (47-70); Platelet Count 267 K/mm3 (150-450); RBC Distribution Width CV 13.8 % (11.6-14.6); RBC Distribution Width SD 41.4 fl (35.1-43.9); Red Blood Count 3.85 M/mm3 (4.6-6.2); White Blood Count 5.8 K/mm3 (4.4-11.0)
[2020-12-06 07:19] LABS: Anion Gap 5 (5-15); BUN 14 mg/dL (7-18); BUN/Creat Ratio 18.7 RATIO (10-20); Calcium,Total 8.2 mg/dL (8.5-10.1); Chloride 105 mmol/L (98-107); Creatinine, Serum 0.75 mg/dL (0.70-1.30); EST Glomerular Filtration Rate 111 mL/min (>60); Est Glom Filt Rate - Afr Amer 134 mL/min (>60); Glucose 254 mg/dL (74-106); Potassium 4.1 mmol/L (3.5-5.1); Sodium Level 138 mmol/L (136-145)
[2020-12-06 07:20] LABS: Bedside Glucose 247 mg/dL (70-110)
[2020-12-06 07:21] LABS: Vancomycin, Random Level 15.5 ug/mL (0.0-15.0)
--- NOTE | 2020-12-06 07:43 | PN.HOSP_ITS ---
Subjective Subjective Patient seen and examined. He has no complaints. Review of systems is otherwise negative. He has remained hemodynamically stable. Objective Data Objective Data Vital Signs: Vital Signs Temp Pulse Resp BP Pulse Ox 98.4 F 68 18 141/65 H 97 12/06/20 02:26 12/06/20 07:25 12/06/20 07:25 12/06/20 02:26 12/06/20 07:25 Oxygen Flow Rate (L/min) 1 Oxygen Delivery Method Room Air Weight: 386 lb 11.053 oz Body Mass Index (BMI) 58.8 Intake & Output: Intake and Output for Last 24 Hours 12/04/20 12/05/20 12/06/20 23:59 23:59 23:59 Intake Total 2195.00 / 2195.00 3644.58 / 4144.58 600 / 600 Output Total 450 / 450 750 / 1300 1175 / 1175 Balance 1745.00 / 1745.00 2894.58 / 2844.58 -575 / -575 Lab / Micro Data Result Diagrams: 12/06/20 06:40 12/06/20 06:40 Labs: Laboratory Results - last 24 hr 12/05/20 12/05/20 12/05/20 06:36 07:26 11:25 WBC RBC Hgb Hct MCV MCH MCHC RDW Std Deviation RDW Coeff of Jada Plt Count MPV Immature Gran % (Auto) Neut % (Auto) Lymph % (Auto) Dale % (Auto) Eos % (Auto) Baso % (Auto) Absolute Neuts (auto) Absolute Lymphs (auto) Nucleated RBC % Sodium 138 Potassium 3.9 Chloride 102 Carbon Dioxide 32.0 Anion Gap 4 L BUN 7 Creatinine 0.65 L Estim Creat Clear Calc 70.30 Est GFR (MDRD) Af Amer 158 Est GFR (MDRD) Non-Af 131 BUN/Creatinine Ratio 10.8 Glucose 240 H Calcium 8.1 L Vancomycin Trough Random Vancomycin POC Glucose 248 H 291 H 12/05/20 12/05/20 12/05/20 17:30 21:52 22:27 WBC RBC Hgb Hct MCV MCH MCHC RDW Std Deviation RDW Coeff of Jada Plt Count MPV Immature Gran % (Auto) Neut % (Auto) Lymph % (Auto) Dale % (Auto) Eos % (Auto) Baso % (Auto) Absolute Neuts (auto) Absolute Lymphs (auto) Nucleated RBC % Sodium Potassium Chloride Carbon Dioxide Anion Gap BUN Creatinine Estim Creat Clear Calc Est GFR (MDRD) Af Amer Est GFR (MDRD) Non-Af BUN/Creatinine Ratio Glucose Calcium Vancomycin Trough 21.5 H Random Vancomycin POC Glucose 273 H 271 H 12/06/20 12/06/20 12/06/20 06:33 06:40 06:40 WBC 5.8 RBC 3.85 L Hgb 10.1 L Hct 32.1 L MCV 83.4 MCH 26.2 L MCHC 31.5 L RDW Std Deviation 41.4 RDW Coeff of Jada 13.8 Plt Count 267 MPV 9.2 Immature Gran % (Auto) 0.500 Neut % (Auto) 64.6 Lymph % (Auto) 24.6 Dale % (Auto) 7.4 Eos % (Auto) 2.4 Baso % (Auto) 0.5 Absolute Neuts (auto) 3.7 Absolute Lymphs (auto) 1.42 Nucleated RBC % 0 Sodium 138 Potassium 4.1 Chloride 105 Carbon Dioxide 28.0 Anion Gap 5 BUN 14 Creatinine 0.75 Estim Creat Clear Calc 70.30 Est GFR (MDRD) Af Amer 134 Est GFR (MDRD) Non-Af 111 BUN/Creatinine Ratio 18.7 Glucose 254 H Calcium 8.2 L Vancomycin Trough Random Vancomycin POC Glucose 247 H 12/06/20 06:40 WBC RBC Hgb Hct MCV MCH MCHC RDW Std Deviation RDW Coeff of Jada Plt Count MPV Immature Gran % (Auto) Neut % (Auto) Lymph % (Auto) Dale % (Auto) Eos % (Auto) Baso % (Auto) Absolute Neuts (auto) Absolute Lymphs (auto) Nucleated RBC % Sodium Potassium Chloride Carbon Dioxide Anion Gap BUN Creatinine Estim Creat Clear Calc Est GFR (MDRD) Af Amer Est GFR (MDRD) Non-Af BUN/Creatinine Ratio Glucose Calcium Vancomycin Trough Random Vancomycin 15.5 H POC Glucose Micro: Microbiology 12/04/20 Unknown Bone - Left Foot Gram Stain - Final 12/04/20 Unknown Bone - Left Foot Wound Culture - Preliminary Beta hemolytic organism 12/03/20 18:00 Wound - Left Foot Gram Stain - Final 12/03/20 18:00 Wound - Left Foot Wound Culture - Preliminary Gram negative [facility] Poss Enterococcus sp Streptococcus agalactiae (B) 12/03/20 18:00 Wound - Left Foot Anaerobic Culture - Preliminary Checking for anaerobes, further studies to follow. 12/03/20 14:20 Blood Culture (Wb) - Anticubital Left Blood Culture - Preliminary No growth in 48 hours. 12/03/20 14:00 Blood Culture (Wb) - Anticubital Right Blood Culture - Preliminary No growth in 48 hours. 12/04/20 Unknown Wound - Left Foot Gram Stain - Final 12/04/20 Unknown Wound - Left Foot Wound Culture - Preliminary No growth-Final to follow 12/04/20 10:55 Mucosa - Nose SARS-CoV-2 Antigen (Rapid) - Final Radiography Diagnostic Testing: Radiology Impression Extremity Arterial Study 12/03/20 18:19 Interpretation Summary Triphasic Doppler waveforms are noted at ankle level bilaterally. Pulse-volume recordings appear satisfactory bilaterally. Resting ankle-brachial indices are normal bilaterally. Digital-brachial indices are normal bilaterally. There is no evidence of significant arterial occlusive disease in the lower extremities bilaterally. Ordering Physician: Amelie Colvin Referring Physician: Bernabe Reese Performed By: Jazmín Roy RVT and Student Physical Exam Const alert, oriented x3 and no apparent distress Exam Limitations: no limitations HEENT head/scalp atraumatic and moist oral mucous membranes Head and Scalp: normocephalic Eyes PERRL, EOMs intact bilaterally and conjunctivae normal Neck no lymphadenopathy, supple, no JVD and no carotid bruits Resp normal respiratory effort, no retractions, no use of accessory muscles and clear to auscultation bilaterally Cardio regular rate, regular rhythm, S1 normal heart sound, S2 normal heart sound and n o murmurs GI normal to inspection, nondistended, normoactive bowel sounds, soft to palpation, non-tender and non-distended Extremity normal to inspection, full ROM and no clubbing, cyanosis or edema Skin Skin Narrative: Left foot wrapped in bandage Neuro oriented x3, CN's II-XII intact bilaterally and moves all extremities Sensorium / Orientation: awake and alert Psych affect normal Assessment & Plan Assessment/Plan (1) Cellulitis and abscess of foot: (2) Foot fracture, left: PLAN: #Left foot cellulitis with facture of left little toe * s/p partial ray amputation of left little toe. Today is POD 2 * MRI showed acute enhancing osteomyelitis of the fifth metatarsal head and proximal fifth phalangeal base osteomyelitis with pathologic fracture, acute fifth PIP and MCP joint effusion siwth enhancement and extgensive lateral soft tissue ulceration with enhancement,as well as diffuse muscle atrophy with myositis. * podiatry on board. * s/p bedside debridement * on IV vancomycin and clindamycin * PT/OT on board. * Fall precautions * wound cultures growing gram positive rods, gram positive cocci, possibly Enterococcus sp and Strep agalactiae. * Bone cultures growing beta hemolytic organism, speciation pending. * ID consulted. will see on Tuesday; per discussion with ID, to continue with vancomycin and cefepime until all cultures are obtained. * * #Atrial fibrillation * on eliquis and metoprolol. eliquis held o/a of surgery; will resume eliquis. * #Type 2 diabetes mellitus with peripheral neuropathy * on metformin and insulin lantus 30 units daily * on gabapentin * ISS. Accuchecks ACHS * #Hypertension; on amlodipine, metoprolol and losartan DVT prophylaxis: resume eliquis today Disposition: will need placement. case management on board. Charges/Coding Visit Charges Inpatient E&M: 97310 Subs Hosp L2
--- NOTE | 2020-12-06 08:52 | PN_ITS ---
Subjective Subjective Patient seen and examined resting comfortably. Patient denies any new pedal complaints. Patient denies any nausea, fever, chills, chest pain, shortness of breath, cough, streaking, purulence, vomiting. Patient relates incident of wetting himself overnight. He relates no other issues after mass was cleaned up and sheets and gown changed. Objective Data Objective Data Vital Signs: Vital Signs Temp Pulse Resp BP Pulse Ox 98.4 F 68 18 141/65 H 97 12/06/20 02:26 12/06/20 07:25 12/06/20 07:25 12/06/20 02:26 12/06/20 07:25 Oxygen Flow Rate (L/min) 1 Oxygen Delivery Method Room Air Weight: 175.4 kg Body Mass Index (BMI) 58.8 Intake & Output: Intake and Output for Last 24 Hours 12/04/20 12/05/20 12/06/20 23:59 23:59 23:59 Intake Total 2195.00 / 2195.00 3644.58 / 4144.58 600 / 600 Output Total 450 / 450 750 / 1300 1175 / 1175 Balance 1745.00 / 1745.00 2894.58 / 2844.58 -575 / -575 Lab / Micro Data Result Diagrams: 12/06/20 06:40 12/06/20 06:40 Labs: Laboratory Results - last 24 hr 12/05/20 12/05/20 12/05/20 06:36 11:25 17:30 WBC RBC Hgb Hct MCV MCH MCHC RDW Std Deviation RDW Coeff of Jada Plt Count MPV Immature Gran % (Auto) Neut % (Auto) Lymph % (Auto) [place] % (Auto) Eos % (Auto) Baso % (Auto) Absolute Neuts (auto) Absolute Lymphs (auto) Nucleated RBC % Sodium Potassium Chloride Carbon Dioxide Anion Gap BUN Creatinine Estim Creat Clear Calc Est GFR (MDRD) Af Amer Est GFR (MDRD) Non-Af BUN/Creatinine Ratio Glucose Calcium Vancomycin Trough Random Vancomycin POC Glucose 248 H 291 H 273 H 12/05/20 12/05/20 12/06/20 21:52 22:27 06:33 WBC RBC Hgb Hct MCV MCH MCHC RDW Std Deviation RDW Coeff of Jada Plt Count MPV Immature Gran % (Auto) Neut % (Auto) Lymph % (Auto) [place] % (Auto) Eos % (Auto) Baso % (Auto) Absolute Neuts (auto) Absolute Lymphs (auto) Nucleated RBC % Sodium Potassium Chloride Carbon Dioxide Anion Gap BUN Creatinine Estim Creat Clear Calc Est GFR (MDRD) Af Amer Est GFR (MDRD) Non-Af BUN/Creatinine Ratio Glucose Calcium Vancomycin Trough 21.5 H Random Vancomycin POC Glucose 271 H 247 H 12/06/20 12/06/20 12/06/20 06:40 06:40 06:40 WBC 5.8 RBC 3.85 L Hgb 10.1 L Hct 32.1 L MCV 83.4 MCH 26.2 L MCHC 31.5 L RDW Std Deviation 41.4 RDW Coeff of Jada 13.8 Plt Count 267 MPV 9.2 Immature Gran % (Auto) 0.500 Neut % (Auto) 64.6 Lymph % (Auto) 24.6 [place] % (Auto) 7.4 Eos % (Auto) 2.4 Baso % (Auto) 0.5 Absolute Neuts (auto) 3.7 Absolute Lymphs (auto) 1.42 Nucleated RBC % 0 Sodium 138 Potassium 4.1 Chloride 105 Carbon Dioxide 28.0 Anion Gap 5 BUN 14 Creatinine 0.75 Estim Creat Clear Calc 70.30 Est GFR (MDRD) Af Amer 134 Est GFR (MDRD) Non-Af 111 BUN/Creatinine Ratio 18.7 Glucose 254 H Calcium 8.2 L Vancomycin Trough Random Vancomycin 15.5 H POC Glucose Micro: Microbiology 12/03/20 18:00 Wound - Left Foot Gram Stain - Final 12/03/20 18:00 Wound - Left Foot Wound Culture - Preliminary Proteus mirabilis Enterococcus faecalis Streptococcus agalactiae (B) 12/03/20 18:00 Wound - Left Foot Anaerobic Culture - Preliminary Checking for anaerobes, further studies to follow. 12/04/20 Unknown Bone - Left Foot Gram Stain - Final 12/04/20 Unknown Bone - Left Foot Wound Culture - Preliminary Beta hemolytic organism 12/03/20 14:20 Blood Culture (Wb) - Anticubital Left Blood Culture - Preliminary No growth in 48 hours. 12/03/20 14:00 Blood Culture (Wb) - Anticubital Right Blood Culture - Preliminary No growth in 48 hours. 12/04/20 Unknown Wound - Left Foot Gram Stain - Final 12/04/20 Unknown Wound - Left Foot Wound Culture - Preliminary No growth-Final to follow 12/04/20 10:55 Mucosa - Nose SARS-CoV-2 Antigen (Rapid) - Final Radiography Diagnostic Testing: Radiology Impression Extremity Arterial Study 12/03/20 18:19 Interpretation Summary Triphasic Doppler waveforms are noted at ankle level bilaterally. Pulse-volume recordings appear satisfactory bilaterally. Resting ankle-brachial indices are normal bilaterally. Digital-brachial indices are normal bilaterally. There is no evidence of significant arterial occlusive disease in the lower extremities bilaterally. Ordering Physician: Amelie Colvin Referring Physician: Bernabe Reese Performed By: Jazmín Roy RVT and Student Physical Exam Const alert and no apparent distress General Appearance: cooperative and comfortable Resp normal respiratory effort Effort and Inspection: able to speak in complete sentences Extremity normal capillary refill and no calf tenderness General Extremity: edema bilateral lower extremity, no tenderness to palpation of joints or extremities and other findings Other Details: Capillary refill time less than 3 seconds noted to digits ; Negative for clubbing or cyanosis Skin General Skin Exam: atrophy and dry skin Rashes: no rashes Wounds: wounds noted Wound Narrative: ulcers noted to plantar lateral fifth MPJ left foot Dressing is noted to be clean dry intact with wound VAC present with good seal. 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 Wound VAC is present with good seal. Patient noted to have wound to plantar lateral aspect of left fifth MPJ area with sutures intact to proximal distal aspect status post partial fifth ray amputation 12/04/2020. Patient is aware that there is an ulcer deficit from the wound and amputation that was note able to close during surgery. This will be treated with wound care. Continue antibiotics. Noted ID consult, follow recommendations. Blood work reviewed showing no leukocytosis. ESR 105, CRP 120, albumin 2.4, Hgb a1c 10.2%. OR Wound cultures were 2 proximal margin fifth metatarsal are showing rare beta-hemolytic organisms. Blood cultures show no growth to date. Initial wound cultures noted to be growing gram-positive organism, alphahemolytic organism, gram-negative rods. LEAS showed triphasic pulses bilaterally DP and PT. Right MEENA is 1.06 and TBI 0.80. Left MEENA is 0.97 and TBI 0.88. This suggests adequate perfusion for healing. Venous studies showed no evidence of acute DVT to bilateral lower extremities with patent and compressible bilateral great saphenous veins. MRI of left foot showed osteomyelitis of the fifth metatarsal head and digit. Postop x-ray was reviewed showing partial fifth ray amputation left foot Discussed importance of smoking cessation, blood sugar control, weight management, offloading, proper nutrition, and hygiene to optimize healing potential. Noted nutrition dietary consult. Discussed with the patient the factors are counseled on his healing the most are going to be his blood sugars and pressure to the ulcer site giving his morbid obesity and struggling with nonweightbearing. To continue working on nonweightbearing with physical therapy Plan to discharge on wound VAC therapy. Would like physical therapy to work with patient to limit weightbearing especially to the forefoot so as to not break seal on the VAC therapy and optimize healing potentials. Recommend nonweightbearing to the left foot but can put some weight through the heel if necessary. All questions answered Please contact if any questions or concerns. Patient is to follow-up at the wound care center with myself upon discharge in 1 week or in office if unable to get into wound care center. Amelie Colvin DPM [facility] [phone] This note was generated with [employer] software. It may contain incorrect words, spelling, and punctuation that were not noted in checking the note before signing.
[2020-12-06] MEDS: Enoxaparin 40 MG/0.4 ML Syringe SC (09:41)
[2020-12-06] MEDS: Menthol/Lanolin/Calamine/Znox 113 GM Tube 1 APPLIC TOPICAL ×2 (09:42→21:18)
[2020-12-06] MEDS: Losartan Potassium 100 MG Tablet PO (09:42)
[2020-12-06] MEDS: amLODIPine 5 MG Tablet PO (09:43)
[2020-12-06] MEDS: Nystatin Powder 15gm Bottle 1 APPLIC TOPICAL ×2 (09:43→21:18)
[2020-12-06] MEDS: Metoprolol(XL)Succ 100 MG Tablet PO (09:44)
--- NOTE | 2020-12-06 12:08 | PCM.RX.CS ---
Consult Pharmacy has been consulted to manage selected antiobiotic: Vancomycin Type of Consult: Follow-up Suspected Infection: Skin/Soft tissue, Osteomyelitis Prior Doses of Antibiotics Received/Current Regimen: the patient had most recently been on 1750mg q8h but that has been held since last night due to a high trough of 21.5 Labs: Sodium 138 mmol/L (136-145) 12/06/20 06:40 Potassium 4.1 mmol/L (3.5-5.1) 12/06/20 06:40 Chloride 105 mmol/L (98-107) 12/06/20 06:40 Carbon Dioxide 28.0 mmol/L (21.0-32.0) 12/06/20 06:40 Anion Gap 5 (5-15) 12/06/20 06:40 BUN 14 mg/dL (7-18) 12/06/20 06:40 Creatinine 0.75 mg/dL (0.70-1.30) 12/06/20 06:40 Est GFR (MDRD) Af Amer 134 mL/min (>60) 12/06/20 06:40 Est GFR (MDRD) Non-Af 111 mL/min (>60) 12/06/20 06:40 BUN/Creatinine Ratio 18.7 RATIO (10-20) 12/06/20 06:40 Glucose 254 mg/dL (74-106) H 12/06/20 06:40 Vancomycin Trough 21.5 ug/mL (5.0-15.0) H 12/05/20 22:27 Random Vancomycin 15.5 ug/mL (0.0-15.0) H 12/06/20 06:40 Microbiology: Microbiology 12/04/20 Unknown Bone - Left Foot Gram Stain - Final 12/04/20 Unknown Bone - Left Foot Wound Culture - Preliminary Streptococcus agalactiae (B) 12/03/20 18:00 Wound - Left Foot Gram Stain - Final 12/03/20 18:00 Wound - Left Foot Wound Culture - Preliminary Proteus mirabilis Enterococcus faecalis Streptococcus agalactiae (B) 12/03/20 18:00 Wound - Left Foot Anaerobic Culture - Preliminary Checking for anaerobes, further studies to follow. 12/03/20 14:20 Blood Culture (Wb) - Anticubital Left Blood Culture - Preliminary No growth in 48 hours. 12/03/20 14:00 Blood Culture (Wb) - Anticubital Right Blood Culture - Preliminary No growth in 48 hours. 12/04/20 Unknown Wound - Left Foot Gram Stain - Final 12/04/20 Unknown Wound - Left Foot Wound Culture - Preliminary No growth-Final to follow 12/04/20 10:55 Mucosa - Nose SARS-CoV-2 Antigen (Rapid) - Final Weight used for dosin.4 kg Estimated Creatinine Clearance: 152ml/min Goal Trough: 15-20 mcg/mL Pharmacy Plan for Drug Dosing: The vanc random level drawn this morning at 06:40 came back as 15.5. This is back below 20 so dosing can be restarted. Will resume at a dose of 2000mg IV q12h and recheck a trough level before the 4th new dose tomorrow night. The patient's CrCl of 152 was calculated using an adjusted body weight of 111kg. Pharmacy Service will continue to monitor and adjust dosing as required. Follow-Up Labs: Trough Vancomycin Labs to be done on [date and time ordered]: 12/07/20 21:30
[2020-12-06 12:50] LABS: Bedside Glucose 309 mg/dL (70-110)
[2020-12-06] MEDS: Acetaminophen 325 MG Tablet 650 MG PO ×2 (14:12→21:29)
[2020-12-06] MEDS: 0.9% Normal Saline 1,000 ML 75 ML IV (14:12)
[2020-12-06] MEDS: metFORMIN HCl 1,000 MG Tablet 1000 MG PO (16:40)
[2020-12-06 16:50] LABS: Bedside Glucose 291 mg/dL (70-110)
[2020-12-06] MEDS: Gabapentin 300 MG Capsule PO (21:23)
[2020-12-06 21:46] LABS: Bedside Glucose 258 mg/dL (70-110)
[2020-12-07] MEDS: 0.9% Normal Saline 1,000 ML 75 ML IV ×2 (05:32→22:14)
[2020-12-07 05:33] VITALS: BP 136/74; PULSE 65; RESP 18; TEMP 36.6; O2SAT 98
[2020-12-07] MEDS: Insulin Lispro 100 UNIT/ML INSULN.PEN SC ×4 (06:22→22:00)
[2020-12-07 06:35] LABS: Bedside Glucose 188 mg/dL (70-110)
--- NOTE | 2020-12-07 07:25 | PN.HOSP_ITS ---
Subjective Subjective Patient seen and examined. HE had an uneventful night and has no complaints. He is awaiting placement. Wound vac in place. Review of systems is otherwise negative. Objective Data Objective Data Vital Signs: Vital Signs Temp Pulse Resp BP Pulse Ox 98 F 65 18 136/74 H 98 12/07/20 05:33 12/07/20 05:33 12/07/20 05:33 12/07/20 05:33 12/07/20 05:33 Oxygen Flow Rate (L/min) 1 Oxygen Delivery Method Room Air Weight: 386 lb 11.053 oz Body Mass Index (BMI) 58.8 Intake & Output: Intake and Output for Last 24 Hours 12/05/20 12/06/20 12/07/20 23:59 23:59 23:59 Intake Total 3644.58 / 4144.58 3282.50 / 3282.50 948.75 / 948.75 Output Total 750 / 1300 2500 / 2500 800 / 800 Balance 2894.58 / 2844.58 782.50 / 782.50 148.75 / 148.75 Lab / Micro Data Result Diagrams: 12/06/20 06:40 12/06/20 06:40 Labs: Laboratory Results - last 24 hr 12/06/20 12/06/20 12/06/20 12:24 16:39 21:26 POC Glucose 309 H 291 H 258 H 12/07/20 06:21 POC Glucose 188 H Micro: Microbiology 12/04/20 Unknown Bone - Left Foot Gram Stain - Final 12/04/20 Unknown Bone - Left Foot Wound Culture - Preliminary Streptococcus agalactiae (B) 12/03/20 18:00 Wound - Left Foot Gram Stain - Final 12/03/20 18:00 Wound - Left Foot Wound Culture - Preliminary Proteus mirabilis Enterococcus faecalis Streptococcus agalactiae (B) 12/03/20 18:00 Wound - Left Foot Anaerobic Culture - Preliminary Checking for anaerobes, further studies to follow. 12/03/20 14:20 Blood Culture (Wb) - Anticubital Left Blood Culture - Preliminary No growth in 48 hours. 12/03/20 14:00 Blood Culture (Wb) - Anticubital Right Blood Culture - Preliminary No growth in 48 hours. 12/04/20 Unknown Wound - Left Foot Gram Stain - Final 12/04/20 Unknown Wound - Left Foot Wound Culture - Preliminary No growth-Final to follow 12/04/20 10:55 Mucosa - Nose SARS-CoV-2 Antigen (Rapid) - Final Physical Exam Const alert, oriented x3 and no apparent distress Exam Limitations: no limitations HEENT head/scalp atraumatic and moist oral mucous membranes Head and Scalp: normocephalic Eyes PERRL, EOMs intact bilaterally and conjunctivae normal Neck no lymphadenopathy, supple, no JVD and no carotid bruits Resp normal respiratory effort, no retractions, no use of accessory muscles and clear to auscultation bilaterally Cardio regular rate, regular rhythm, S1 normal heart sound, S2 normal heart sound and no murmurs GI normal to inspection, nondistended, normoactive bowel sounds, soft to palpation, non-tender and non-distended Extremity normal to inspection, full ROM and no clubbing, cyanosis or edema Skin Skin Narrative: Left foot wrapped in bandage Neuro oriented x3, CN's II-XII intact bilaterally and moves all extremities Sensorium / Orientation: awake and alert Psych affect normal Assessment & Plan Assessment/Plan (1) Cellulitis and abscess of foot: (2) Foot fracture, left: PLAN: #Left foot cellulitis with facture of left little toe and osteomyelitis * s/p partial ray amputation of left little toe. Today is POD 3 * MRI showed acute enhancing osteomyelitis of the fifth metatarsal head and proximal fifth phalangeal base osteomyelitis with pathologic fracture, acute fifth PIP and MCP joint effusion siwth enhancement and extgensive lateral soft tissue ulceration with enhancement,as well as diffuse muscle atrophy with myositis. * podiatry on board. * on IV vancomycin and clindamycin * PT/OT on board. * Fall precautions * wound gram stain growing gram positive rods, gram positive cocci, possibly Enterococcus sp and Strep agalactiae. * wound cultures negative so far * Bone cultures growing beta hemolytic organism, speciation pending. * ID consulted. per discussion with ID, to continue with vancomycin and cefepime until all cultures are obtained. * * #Atrial fibrillation * on eliquis and metoprolol. * #Type 2 diabetes mellitus with peripheral neuropathy * on metformin and insulin lantus 30 units daily * on gabapentin * ISS. Accuchecks ACHS * #Hypertension; on amlodipine, metoprolol and losartan DVT prophylaxis:on eliquis Disposition: will need placement. case management on board. Charges/Coding Visit Charges Inpatient E&M: 18130 Subs Hosp L2
[2020-12-07 07:34] LABS: Absolute Lymphocyte Count 1.89 X10^3/uL (0.83-4.51); Absolute Neutrophil Count 4.3 X10^3/uL (2.0-7.7); Basophil# 0.04 X10^3/uL; Basophil% 0.6 % (0-1); Eosinophil# 0.17 X10^3/uL; Eosinophils% 2.4 % (0-5); Hematocrit 33.3 % (40-54); Hemoglobin 10.3 g/dL (13.0-16.5); Lymphocyte # 1.89 X10^3/ul (0.83-4.51); Lymphocyte % 27.2 % (19-41); Mean Corp Hgb Conc 30.9 g/dL (32-36); Mean Corpuscular Hgb 26.1 pg (27.0-32.0); Mean Corpuscular Volume 84.5 fL (80-94); Mean Platelet Vol. 10.4 fl (6.2-12.0); Monocyte% 7.2 % (0-10); NRBC Flagged by Analyzer 0 % (0-5); Neutrophil # 4.28 X10^3/uL (2.7-7.7); Neutrophil % 61.7 % (47-70); POSITIVE COUNT YES; Platelet Count 234 K/mm3 (150-450); RBC Distribution Width CV 13.7 % (11.6-14.6); RBC Distribution Width SD 42.3 fl (35.1-43.9); Red Blood Count 3.94 M/mm3 (4.6-6.2); White Blood Count 6.9 K/mm3 (4.4-11.0)
[2020-12-07 07:35] LABS: Differential Indicated SCAN CRITERIA MET
[2020-12-07] MEDS: Multivitamins,Ther W-Minerals Tablet 1 TABLET PO (07:37)
[2020-12-07] MEDS: Pyridoxine HCl 100 MG Tablet PO (07:37)
[2020-12-07] MEDS: metFORMIN HCl 1,000 MG Tablet 1000 MG PO ×2 (07:37→17:58)
[2020-12-07] MEDS: Aspirin 81 MG TAB.CHEW PO (07:37)
[2020-12-07 07:50] LABS: Anion Gap 5 (5-15); BUN 16 mg/dL (7-18); BUN/Creat Ratio 24.3 RATIO (10-20); Calcium,Total 8.7 mg/dL (8.5-10.1); Chloride 106 mmol/L (98-107); Creatinine, Serum 0.66 mg/dL (0.70-1.30); EST Glomerular Filtration Rate 129 mL/min (>60); Est Glom Filt Rate - Afr Amer 156 mL/min (>60); Glucose 206 mg/dL (74-106); Potassium 4.2 mmol/L (3.5-5.1); Sodium Level 137 mmol/L (136-145)
[2020-12-07 08:02] LABS: Platelet Estimate ADEQUATE (ADEQ); Platelet Morphology CLUMPED
--- NOTE | 2020-12-07 08:22 | PCM.PROGNOTE ---
Subjective Subjective Patient seen and examined resting comfortably. Patient denies any new pedal complaints. Patient denies any nausea, fever, chills, chest pain, shortness of breath, cough, streaking, purulence, vomiting. Patient relates no pain Objective Data Objective Data Vital Signs: Vital Signs Temp Pulse Resp BP Pulse Ox 98 F 65 18 136/74 H 98 12/07/20 05:33 12/07/20 05:33 12/07/20 05:33 12/07/20 05:33 12/07/20 05:33 Oxygen Flow Rate (L/min) 1 Oxygen Delivery Method Room Air Weight: 175.4 kg Body Mass Index (BMI) 58.8 Intake & Output: Intake and Output for Last 24 Hours 12/05/20 12/06/20 12/07/20 23:59 23:59 23:59 Intake Total 3644.58 / 4144.58 3282.50 / 3282.50 1112.50 / 1112.50 Output Total 750 / 1300 2500 / 2500 800 / 800 Balance 2894.58 / 2844.58 782.50 / 782.50 312.50 / 312.50 Lab / Micro Data Result Diagrams: 12/07/20 07:24 12/07/20 07:24 Labs: Laboratory Results - last 24 hr 12/06/20 12/06/20 12/06/20 12:24 16:39 21:26 WBC RBC Hgb Hct MCV MCH MCHC RDW Std Deviation RDW Coeff of Jada Plt Count MPV Immature Gran % (Auto) Neut % (Auto) Lymph % (Auto) [place] % (Auto) Eos % (Auto) Baso % (Auto) Absolute Neuts (auto) Absolute Lymphs (auto) Nucleated RBC % Platelet Estimate Plt Morphology Comment Sodium Potassium Chloride Carbon Dioxide Anion Gap BUN Creatinine Estim Creat Clear Calc Est GFR (MDRD) Af Amer Est GFR (MDRD) Non-Af BUN/Creatinine Ratio Glucose Calcium POC Glucose 309 H 291 H 258 H 12/07/20 12/07/20 12/07/20 06:21 07:24 07:24 WBC 6.9 RBC 3.94 L Hgb 10.3 L Hct 33.3 L MCV 84.5 MCH 26.1 L MCHC 30.9 L RDW Std Deviation 42.3 RDW Coeff of Jada 13.7 Plt Count 234 MPV 10.4 Immature Gran % (Auto) 0.900 Neut % (Auto) 61.7 Lymph % (Auto) 27.2 [place] % (Auto) 7.2 Eos % (Auto) 2.4 Baso % (Auto) 0.6 Absolute Neuts (auto) 4.3 Absolute Lymphs (auto) 1.89 Nucleated RBC % 0 Platelet Estimate ADEQUATE Plt Morphology Comment CLUMPED Sodium 137 Potassium 4.2 Chloride 106 Carbon Dioxide 26.0 Anion Gap 5 BUN 16 Creatinine 0.66 L Estim Creat Clear Calc 70.30 Est GFR (MDRD) Af Amer 156 Est GFR (MDRD) Non-Af 129 BUN/Creatinine Ratio 24.3 H Glucose 206 H Calcium 8.7 POC Glucose 188 H Micro: Microbiology 12/04/20 Unknown Bone - Left Foot Gram Stain - Final 12/04/20 Unknown Bone - Left Foot Wound Culture - Preliminary Streptococcus agalactiae (B) 12/03/20 18:00 Wound - Left Foot Gram Stain - Final 12/03/20 18:00 Wound - Left Foot Wound Culture - Preliminary Proteus mirabilis Enterococcus faecalis Streptococcus agalactiae (B) 12/03/20 18:00 Wound - Left Foot Anaerobic Culture - Preliminary Checking for anaerobes, further studies to follow. 12/03/20 14:20 Blood Culture (Wb) - Anticubital Left Blood Culture - Preliminary No growth in 48 hours. 12/03/20 14:00 Blood Culture (Wb) - Anticubital Right Blood Culture - Preliminary No growth in 48 hours. 12/04/20 Unknown Wound - Left Foot Gram Stain - Final 12/04/20 Unknown Wound - Left Foot Wound Culture - Preliminary No growth-Final to follow 12/04/20 10:55 Mucosa - Nose SARS-CoV-2 Antigen (Rapid) - Final Physical Exam Const alert and no apparent distress General Appearance: cooperative and comfortable Nutritional Appearance: morbidly obese Resp normal respiratory effort Effort and Inspection: able to speak in complete sentences Extremity normal capillary refill and no calf tenderness General Extremity: edema bilateral lower extremity, no tenderness to palpation of joints or extremities and other findings Other Details: Capillary refill time less than 3 seconds noted to digits ; Negative for clubbing or cyanosis Skin General Skin Exam: atrophy and dry skin Rashes: no rashes Wounds: wounds noted Wound Narrative: ulcers noted to plantar lateral fifth MPJ left foot Dressing is noted to be clean dry intact with wound VAC present with good seal. There is less erythema noted to the dorsal foot. DP and PT palpable Partial fifth ray amputation left foot Nails right 1234 and 5 and left 1234 are elongated, thickened, dystrophic, discolored, with subungual debris, yellowed Neuro Sensory Exam: extremities light-touch: absent Motor Exam: strength 5/5 throughout Psych Appearance: appropriate Attitude: calm Assessment & Plan Assessment/Plan (1) Osteomyelitis: QUALIFIERS: Osteomyelitis type: other acute Osteomyelitis location: foot Laterality: left Qualified Code(s): M86.172 - Other acute osteomyelitis, left ankle and foot (2) Cellulitis and abscess of foot: (3) Foot fracture, left: QUALIFIERS: Encounter type: initial encounter Fracture type: closed Qualified Code(s): S92.902A - Unspecified fracture of left foot, initial encounter for closed fracture (4) 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: (5) Morbid obesity: (6) Type 2 diabetes mellitus: QUALIFIERS: Diabetes mellitus group home insulin use: with group home use Diabetes mellitus complication status: with neurologic complications Diabetes mellitus complication detail: with polyneuropathy Qualified Code(s): E11.42 - Type 2 diabetes mellitus with diabetic polyneuropathy; Z79.4 - MCC (current) use of insulin (7) Diabetes: QUALIFIERS: Diabetes mellitus type: type 2 Diabetes mellitus group home insulin use: with 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 Wound VAC is present with good seal. Patient noted to have wound to plantar lateral aspect of left fifth MPJ area with sutures intact to proximal distal aspect status post partial fifth ray amputation 12/04/2020. Patient is aware that there is an ulcer deficit from the wound and amputation that was note able to close during surgery. This will be treated with wound care. Continue antibiotics. Noted ID consult, follow recommendations. Blood work reviewed showing no leukocytosis. ESR 105, CRP 120, albumin 2.4, Hgb a1c 10.2%. OR Wound cultures were to proximal margin fifth metatarsal are growing Streptococcus agalactiae. Blood cultures show no growth to date. Initial wound cultures noted to be growing Proteus Mirabilis, Enterococcus faecalis, Streptococcus agalactiae. LEAS showed triphasic pulses bilaterally DP and PT. Right MEENA is 1.06 and TBI 0.80. Left MEENA is 0.97 and TBI 0.88. This suggests adequate perfusion for healing. Venous studies showed no evidence of acute DVT to bilateral lower extremities with patent and compressible bilateral great saphenous veins. MRI of left foot showed osteomyelitis of the fifth metatarsal head and digit. Postop x-ray was reviewed showing partial fifth ray amputation left foot Discussed importance of smoking cessation, blood sugar control, weight management, offloading, proper nutrition, and hygiene to optimize healing potential. Noted nutrition dietary consult. Discussed with the patient the factors are counseled on his healing the most are going to be his blood sugars and pressure to the ulcer site giving his morbid obesity and struggling with nonweightbearing. To continue working on nonweightbearing with physical therapy Plan to discharge on wound VAC therapy. Would like physical therapy to work with patient to limit weightbearing especially to the forefoot so as to not break seal on the VAC therapy and optimize healing potentials. Recommend nonweightbearing to the left foot but can put some weight through the heel if necessary. We will proceed with palliative care, as well as monitoring. Foot care and footgear has been discussed[place] [address] right and 1234 left toenails, with a nail nipper and both length and thickness by angling nail nippers. This was done without incident. All questions answered Please contact if any questions or concerns. Patient is to follow-up at the wound care center with myself upon discharge in 1 week or in office if unable to get into wound care center. Amelie Colvin, [facility] [place] [phone] This note was generated with [employer] software. It may contain incorrect words, spelling, and punctuation that were not noted in checking the note before signing.
[2020-12-07] MEDS: Nystatin Powder 15gm Bottle 1 APPLIC TOPICAL ×2 (10:48→21:54)
[2020-12-07] MEDS: Menthol/Lanolin/Calamine/Znox 113 GM Tube 1 APPLIC TOPICAL ×2 (10:50→21:55)
[2020-12-07 11:01] VITALS: PULSE 70
[2020-12-07] MEDS: amLODIPine 5 MG Tablet PO (11:01)
[2020-12-07] MEDS: Losartan Potassium 100 MG Tablet PO (11:01)
[2020-12-07] MEDS: APIXABAN 5 MG TABLET PO ×2 (11:01→21:55)
[2020-12-07] MEDS: Metoprolol(XL)Succ 100 MG Tablet PO (11:01)
[2020-12-07] MEDS: Acetaminophen 325 MG Tablet 650 MG PO ×2 (11:04→21:53)
[2020-12-07 11:10] VITALS: BP 149/67; PULSE 70; RESP 18; TEMP 36.6; O2SAT 95
[2020-12-07 12:25] LABS: Bedside Glucose 242 mg/dL (70-110)
[2020-12-07 15:25] VITALS: BP 154/92; PULSE 68; RESP 16; TEMP 36.8; O2SAT 94
[2020-12-07 18:21] LABS: Bedside Glucose 252 mg/dL (70-110)
[2020-12-07] MEDS: Gabapentin 300 MG Capsule PO (21:55)
[2020-12-07 22:15] LABS: Vancomycin, Trough Level 16.8 ug/mL (5.0-15.0)
[2020-12-07 22:25] VITALS: BP 153/83; PULSE 70; RESP 16; TEMP 36.3; O2SAT 95
[2020-12-07 22:41] LABS: Bedside Glucose 294 mg/dL (70-110)
--- NOTE | 2020-12-07 23:21 | PCM.RX.CS ---
Consult Pharmacy has been consulted to manage selected antiobiotic: Vancomycin Type of Consult: Follow-up Labs: Sodium 137 mmol/L (136-145) 12/07/20 07:24 Potassium 4.2 mmol/L (3.5-5.1) 12/07/20 07:24 Chloride 106 mmol/L (98-107) 12/07/20 07:24 Carbon Dioxide 26.0 mmol/L (21.0-32.0) 12/07/20 07:24 Anion Gap 5 (5-15) 12/07/20 07:24 BUN 16 mg/dL (7-18) 12/07/20 07:24 Creatinine 0.66 mg/dL (0.70-1.30) L 12/07/20 07:24 Est GFR (MDRD) Af Amer 156 mL/min (>60) 12/07/20 07:24 Est GFR (MDRD) Non-Af 129 mL/min (>60) 12/07/20 07:24 BUN/Creatinine Ratio 24.3 RATIO (10-20) H 12/07/20 07:24 Glucose 206 mg/dL (74-106) H 12/07/20 07:24 Vancomycin Trough 16.8 ug/mL (5.0-15.0) H 12/07/20 21:35 Random Vancomycin 15.5 ug/mL (0.0-15.0) H 12/06/20 06:40 Microbiology: Microbiology 12/04/20 Unknown Wound - Left Foot Gram Stain - Final 12/04/20 Unknown Wound - Left Foot Wound Culture - Final 12/04/20 Unknown Wound - Left Foot Anaerobic Culture - Preliminary Checking for anaerobes, further studies to follow. 12/04/20 Unknown Bone - Left Foot Gram Stain - Final 12/04/20 Unknown Bone - Left Foot Wound Culture - Preliminary Streptococcus agalactiae (B) 12/04/20 Unknown Bone - Left Foot Anaerobic Culture - Preliminary Checking for anaerobes, further studies to follow. 12/03/20 18:00 Wound - Left Foot Gram Stain - Final 12/03/20 18:00 Wound - Left Foot Wound Culture - Preliminary Proteus mirabilis Enterococcus faecalis 12/03/20 18:00 Wound - Left Foot Anaerobic Culture - Preliminary Checking for anaerobes, further studies to follow. 12/03/20 14:20 Blood Culture (Wb) - Anticubital Left Blood Culture - Preliminary No growth in 48 hours. 12/03/20 14:00 Blood Culture (Wb) - Anticubital Right Blood Culture - Preliminary No growth in 48 hours. 12/04/20 10:55 Mucosa - Nose SARS-CoV-2 Antigen (Rapid) - Final Goal Trough: 15-20 mcg/mL Pharmacy Plan for Drug Dosing: Pharmacy Service will continue to monitor and adjust dosing as required. TROUGH 16.8 NO CHANGES. NEXT TROUGH 12/11 Follow-Up Labs: Trough Vancomycin Labs to be done on [date and time ordered]: 12/11 @ 6610
[2020-12-08 04:25] VITALS: BP 132/67; PULSE 78; RESP 18; TEMP 36.1; O2SAT 95
[2020-12-08 06:12] LABS: Absolute Neutrophil Count 4.3 X10^3/uL (2.0-7.7); Basophil# 0.03 X10^3/uL; Basophil% 0.5 % (0-1); Hematocrit 32.4 % (40-54); Lymphocyte % 25.5 % (19-41); Mean Corp Hgb Conc 30.9 g/dL (32-36); Mean Corpuscular Volume 84.2 fL (80-94); Mean Platelet Vol. 9.2 fl (6.2-12.0); Monocyte# 0.42 X10^3/uL; Monocyte% 6.3 % (0-10); NRBC Flagged by Analyzer 0 % (0-5); Neutrophil # 4.25 X10^3/uL (2.7-7.7); Neutrophil % 63.8 % (47-70); Platelet Count 261 K/mm3 (150-450); RBC Distribution Width CV 14.1 % (11.6-14.6); RBC Distribution Width SD 42.5 fl (35.1-43.9); Red Blood Count 3.85 M/mm3 (4.6-6.2); White Blood Count 6.7 K/mm3 (4.4-11.0)
[2020-12-08 06:33] LABS: Anion Gap 5 (5-15); BUN 15 mg/dL (7-18); BUN/Creat Ratio 25.4 RATIO (10-20); Calcium,Total 8.7 mg/dL (8.5-10.1); Chloride 104 mmol/L (98-107); Creatinine, Serum 0.59 mg/dL (0.70-1.30); EST Glomerular Filtration Rate 146 mL/min (>60); Est Glom Filt Rate - Afr Amer 176 mL/min (>60); Glucose 211 mg/dL (74-106); Potassium 3.8 mmol/L (3.5-5.1); Sodium Level 139 mmol/L (136-145)
[2020-12-08] MEDS: Insulin Lispro 100 UNIT/ML INSULN.PEN SC ×6 (06:52→22:09)
--- NOTE | 2020-12-08 06:57 | PN_ITS ---
Subjective Subjective 65-year-old diabetic male was seen bedside for left foot fifth ray resection secondary to infection. He denies fever, chill, nausea, vomiting, calf pain, or foot morning. Objective Data Objective Data Vital Signs: Vital Signs Temp Pulse Resp BP Pulse Ox 96.9 F L 78 18 132/67 H 95 12/08/20 04:25 12/08/20 04:25 12/08/20 04:25 12/08/20 04:25 12/08/20 04:25 Oxygen Flow Rate (L/min) 1 Oxygen Delivery Method Room Air Weight: 175.4 kg Body Mass Index (BMI) 58.8 Intake & Output: Intake and Output for Last 24 Hours 12/06/20 12/07/20 12/08/20 23:59 23:59 23:59 Intake Total 3282.50 / 3282.50 3470.00 / 3470.00 540 / 540 Output Total 2500 / 2500 2500 / 2500 450 / 450 Balance 782.50 / 782.50 970.00 / 970.00 90 / 90 Lab / Micro Data Result Diagrams: 12/08/20 05:45 12/08/20 05:45 Labs: Laboratory Results - last 24 hr 12/07/20 12/07/20 12/07/20 07:24 07:24 10:57 WBC 6.9 RBC 3.94 L Hgb 10.3 L Hct 33.3 L MCV 84.5 MCH 26.1 L MCHC 30.9 L RDW Std Deviation 42.3 RDW Coeff of Jada 13.7 Plt Count 234 MPV 10.4 Immature Gran % (Auto) 0.900 Neut % (Auto) 61.7 Lymph % (Auto) 27.2 [place] % (Auto) 7.2 Eos % (Auto) 2.4 Baso % (Auto) 0.6 Absolute Neuts (auto) 4.3 Absolute Lymphs (auto) 1.89 Nucleated RBC % 0 Platelet Estimate ADEQUATE Plt Morphology Comment CLUMPED Sodium 137 Potassium 4.2 Chloride 106 Carbon Dioxide 26.0 Anion Gap 5 BUN 16 Creatinine 0.66 L Estim Creat Clear Calc 70.30 Est GFR (MDRD) Af Amer 156 Est GFR (MDRD) Non-Af 129 BUN/Creatinine Ratio 24.3 H Glucose 206 H Calcium 8.7 Vancomycin Trough POC Glucose 242 H 12/07/20 12/07/2021 17:49 21:35 21:59 WBC RBC Hgb Hct MCV MCH MCHC RDW Std Deviation RDW Coeff of Jada Plt Count MPV Immature Gran % (Auto) Neut % (Auto) Lymph % (Auto) [place] % (Auto) Eos % (Auto) Baso % (Auto) Absolute Neuts (auto) Absolute Lymphs (auto) Nucleated RBC % Platelet Estimate Plt Morphology Comment Sodium Potassium Chloride Carbon Dioxide Anion Gap BUN Creatinine Estim Creat Clear Calc Est GFR (MDRD) Af Amer Est GFR (MDRD) Non-Af BUN/Creatinine Ratio Glucose Calcium Vancomycin Trough 16.8 H POC Glucose 252 H 294 H 12/08/20 12/08/20 05:45 05:45 WBC 6.7 RBC 3.85 L Hgb 10.0 L Hct 32.4 L MCV 84.2 MCH 26.0 L MCHC 30.9 L RDW Std Deviation 42.5 RDW Coeff of Jada 14.1 Plt Count 261 MPV 9.2 Immature Gran % (Auto) 0.900 Neut % (Auto) 63.8 Lymph % (Auto) 25.5 [place] % (Auto) 6.3 Eos % (Auto) 3.0 Baso % (Auto) 0.5 Absolute Neuts (auto) 4.3 Absolute Lymphs (auto) 1.70 Nucleated RBC % 0 Platelet Estimate Plt Morphology Comment Sodium 139 Potassium 3.8 Chloride 104 Carbon Dioxide 30.0 Anion Gap 5 BUN 15 Creatinine 0.59 L Estim Creat Clear Calc 70.30 Est GFR (MDRD) Af Amer 176 Est GFR (MDRD) Non-Af 146 BUN/Creatinine Ratio 25.4 H Glucose 211 H Calcium 8.7 Vancomycin Trough POC Glucose Micro: Microbiology 12/04/20 Unknown Wound - Left Foot Gram Stain - Final 12/04/20 Unknown Wound - Left Foot Wound Culture - Final 12/04/20 Unknown Wound - Left Foot Anaerobic Culture - Preliminary Checking for anaerobes, further studies to follow. 12/04/20 Unknown Bone - Left Foot Gram Stain - Final 12/04/20 Unknown Bone - Left Foot Wound Culture - Preliminary Streptococcus agalactiae (B) 12/04/20 Unknown Bone - Left Foot Anaerobic Culture - Preliminary Checking for anaerobes, further studies to follow. 12/03/20 18:00 Wound - Left Foot Gram Stain - Final 12/03/20 18:00 Wound - Left Foot Wound Culture - Preliminary Proteus mirabilis Enterococcus faecalis 12/03/20 18:00 Wound - Left Foot Anaerobic Culture - Preliminary Checking for anaerobes, further studies to follow. 12/03/20 14:20 Blood Culture (Wb) - Anticubital Left Blood Culture - Preliminary No growth in 48 hours. 12/03/20 14:00 Blood Culture (Wb) - Anticubital Right Blood Culture - Preliminary No growth in 48 hours. 12/04/20 10:55 Mucosa - Nose SARS-CoV-2 Antigen (Rapid) - Final Physical Exam Const alert and no apparent distress General Appearance: cooperative and comfortable Nutritional Appearance: morbidly obese Resp normal respiratory effort Effort and Inspection: able to speak in complete sentences Extremity normal capillary refill and no calf tenderness General Extremity: edema bilateral lower extremity, no tenderness to palpation of joints or extremities and other findings Other Details: Capillary refill time less than 3 seconds noted to digits ; Negative for clubbing or cyanosis Skin General Skin Exam: atrophy and dry skin Rashes: no rashes Wound Narrative: Dressing is noted to be clean dry intact with wound VAC present with good seal. There is resolved erythema noted to the dorsal foot. Upon removal of wound vac, the wound bed is 80% granular 20% fibrous without visualized bone. There is a distal small area of dusky tissue without shahida eschar, purulence, odor. The adjacent skin is hairless and atrophic. DP and PT palpable. Bilateral lower extremity edema noted. Partial fifth ray amputation left foot. Compartments remain soft to palpate. Active range of motion digits 1, 2, 3, 4 left foot. 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: (5) Morbid obesity: (6) Type 2 diabetes mellitus: QUALIFIERS: Diabetes mellitus snf insulin use: with terminal gauger use Diabetes mellitus complication status: with neurologic complications Diabetes mellitus complication detail: with polyneuropathy Qualified Code(s): E11.42 - Type 2 diabetes mellitus with diabetic polyneuropathy; 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 Wound VAC is present with good seal. This patient is status post partial fifth ray amputation 12/04/2020. The VAC was changed and the wound site was evaluated. This will be treated with wound care locally at this time. His foot was cleaned and the wound VAC will be reapplied this morning. His local signs of infection are resolving and he does not have any purulence today. Continue antibiotics. Noted ID consult, follow recommendations. He is on IV cefepime and vancomycin. Clearance fragment with strep so far. Preoperative MRI of left foot showed osteomyelitis of the fifth metatarsal head and digit. Postop x-ray was reviewed showing partial fifth ray amputation left foot. Blood work reviewed showing no leukocytosis. White blood cell count 6.7 this morning. ESR 105, CRP 120, albumin 2.4, Hgb a1c 10.2%. OR Wound cultures were to proximal margin fifth metatarsal are growing Streptococcus agalactiae. Blood cultures show no growth to date. Initial wound cultures noted to be growing Proteus Mirabilis, Enterococcus faecalis, Streptococcus agalactiae. LEAS showed triphasic pulses bilaterally DP and PT. Right MEENA is 1.06 and TBI 0.80. Left MEENA is 0.97 and TBI 0.88. This suggests adequate perfusion for healing. Venous studies showed no evidence of acute DVT to bilateral lower extremities with patent and compressible bilateral great saphenous veins. Plan to discharge on wound VAC therapy. Would like physical therapy to work with patient to limit weightbearing especially to the forefoot so as to not break seal on the VAC therapy and optimize healing potentials. Recommend nonweightbearing to the left foot but can put some weight through the heel if necessary. We will proceed with palliative care, as well as monitoring. All of his questions were answered. [facility] facility placement is pending. Please contact if any questions or concerns. Patient is to follow-up at the wound care center with Dr. Colvin upon discharge within 1 week or at [facility] office if unable to get into wound care center. Rocio Valverde DPM, [facility] [phone] This note was generated with 2C2P dictation software. It may contain in correct words, spelling, and punctuation that were not noted in checking the note before signing.
[2020-12-08 07:01] LABS: Bedside Glucose 221 mg/dL (70-110)
--- NOTE | 2020-12-08 07:18 | NURSING ---
wound photo: left foot
[2020-12-08 08:05] VITALS: BP 155/69; PULSE 87; RESP 16; TEMP 37; O2SAT 95
[2020-12-08 08:58] VITALS: O2SAT 96
--- NOTE | 2020-12-08 09:21 | CASEMGMT ---
Addendum entered by Jazmín Coffman 12/08/20 13:54: ALVARADO received message from Jazmín at [facility] stating [facility] has no beds available today, but will have a bed available tomorrow and can accept pt tomorrow. ALVARADO updated that pt will be on PO antibiotics at discharge. SW updated Jazmín of this. SW in to speak with pt. SW introduced self and role at [facility]. Pt is alert and orientated. ALVARADO updated pt that [facility] is able to accept pt, will discharge to [facility] tomorrow pending being medically cleared. Pt states understanding. Pt asked about LW and HCPOA information. SW informed pt that this worker can provide him with advanced directives documents, will try to meet with pt to complete documents before pt discharges but informed pt that if SW is not able to meet with pt while pt is at [facility] to complete documents, pt can complete documents when pt is at [facility]. Pt states understanding. Pt then received call from pt's sister Saira. Pt placed Saira on speaker phone so SW Can speak with Saira. SW answered Saira's questions. SW will provide pt with advanced directives as time permits. Plan: [facility] tomorrow. Original Note: Social Work Note ALVARADO placed a call to Jazmín at [facility]. Jazmín states referral was sent to her after she had left on Tuesday, will send it to the RN to review this morning. Jazmín to let this worker know if they can accept pt or not. Plan: [facility] pending acceptance Jazmín Coffman [employer], [employer]
--- NOTE | 2020-12-08 10:29 | PN.HOSP_ITS ---
Subjective Subjective Doing well, no issues overnight. States that he does not have any pain in his foot after amputation Objective Data Objective Data Vital Signs: Vital Signs Temp Pulse Resp BP Pulse Ox 98.6 F 87 16 155/69 H 95 12/08/20 08:05 12/08/20 08:05 12/08/20 08:05 12/08/20 08:05 12/08/20 08:05 Oxygen Flow Rate (L/min) 1 Oxygen Delivery Method Room Air Weight: 386 lb 11.053 oz Body Mass Index (BMI) 58.8 Intake & Output: Intake and Output for Last 24 Hours 12/07/20 12/08/20 12/09/20 03:59 03:59 03:59 Intake Total 3322.50 / 3322.50 3470.00 / 3470.00 Output Total 1950 / 1950 2500 / 2500 450 / 450 Balance 1372.50 / 1372.50 970.00 / 970.00 -450 / -450 Lab / Micro Data Result Diagrams: 12/08/20 05:45 12/08/20 05:45 Labs: Laboratory Results - last 24 hr 12/07/20 12/07/20 12/07/20 10:57 17:49 21:35 WBC RBC Hgb Hct MCV MCH MCHC RDW Std Deviation RDW Coeff of Jada Plt Count MPV Immature Gran % (Auto) Neut % (Auto) Lymph % (Auto) [place] % (Auto) Eos % (Auto) Baso % (Auto) Absolute Neuts (auto) Absolute Lymphs (auto) Nucleated RBC % Sodium Potassium Chloride Carbon Dioxide Anion Gap BUN Creatinine Estim Creat Clear Calc Est GFR (MDRD) Af Amer Est GFR (MDRD) Non-Af BUN/Creatinine Ratio Glucose Calcium Vancomycin Trough 16.8 H POC Glucose 242 H 252 H 12/07/20 12/08/20 12/08/20 21:59 05:45 05:45 WBC 6.7 RBC 3.85 L Hgb 10.0 L Hct 32.4 L MCV 84.2 MCH 26.0 L MCHC 30.9 L RDW Std Deviation 42.5 RDW Coeff of Jada 14.1 Plt Count 261 MPV 9.2 Immature Gran % (Auto) 0.900 Neut % (Auto) 63.8 Lymph % (Auto) 25.5 [place] % (Auto) 6.3 Eos % (Auto) 3.0 Baso % (Auto) 0.5 Absolute Neuts (auto) 4.3 Absolute Lymphs (auto) 1.70 Nucleated RBC % 0 Sodium 139 Potassium 3.8 Chloride 104 Carbon Dioxide 30.0 Anion Gap 5 BUN 15 Creatinine 0.59 L Estim Creat Clear Calc 70.30 Est GFR (MDRD) Af Amer 176 Est GFR (MDRD) Non-Af 146 BUN/Creatinine Ratio 25.4 H Glucose 211 H Calcium 8.7 Vancomycin Trough POC Glucose 294 H 12/08/20 06:51 WBC RBC Hgb Hct MCV MCH MCHC RDW Std Deviation RDW Coeff of Jada Plt Count MPV Immature Gran % (Auto) Neut % (Auto) Lymph % (Auto) [place] % (Auto) Eos % (Auto) Baso % (Auto) Absolute Neuts (auto) Absolute Lymphs (auto) Nucleated RBC % Sodium Potassium Chloride Carbon Dioxide Anion Gap BUN Creatinine Estim Creat Clear Calc Est GFR (MDRD) Af Amer Est GFR (MDRD) Non-Af BUN/Creatinine Ratio Glucose Calcium Vancomycin Trough POC Glucose 221 H Micro: Microbiology 12/03/20 18:00 Wound - Left Foot Gram Stain - Final 12/03/20 18:00 Wound - Left Foot Wound Culture - Preliminary Proteus mirabilis Enterococcus faecalis 12/03/20 18:00 Wound - Left Foot Anaerobic Culture - Preliminary Gram negative [place] Anaerobic cocci 12/04/20 Unknown Bone - Left Foot Gram Stain - Final 12/04/20 Unknown Bone - Left Foot Wound Culture - Final Streptococcus agalactiae (B) 12/04/20 Unknown Bone - Left Foot Anaerobic Culture - Preliminary Checking for anaerobes, further studies to follow. 12/04/20 Unknown Wound - Left Foot Gram Stain - Final 12/04/20 Unknown Wound - Left Foot Wound Culture - Final 12/04/20 Unknown Wound - Left Foot Anaerobic Culture - Preliminary Checking for anaerobes, further studies to fo [facility]. 12/03/20 14:20 Blood Culture (Wb) - Anticubital Left Blood Culture - Preliminary No growth in 48 hours. 12/03/20 14:00 Blood Culture (Wb) - Anticubital Right Blood Culture - Preliminary No growth in 48 hours. 12/04/20 10:55 Mucosa - Nose SARS-CoV-2 Antigen (Rapid) - Final Physical Exam Const alert, oriented x3 and no apparent distress General Appearance: cooperative Exam Limitations: no limitations HEENT normocephalic and moist oral mucous membranes Eyes PERRL, EOMs intact bilaterally and conjunctivae normal Neck supple and no JVD Resp normal respiratory effort, no retractions, no use of accessory muscles and clear to auscultation bilaterally Auscultation: Negative for crackles, rales, rhonchi or wheezes Cardio regular rate, regular rhythm, S1 normal heart sound, S2 normal heart sound and no murmurs GI soft to palpation, non-tender and non-distended; Negative for hepatosplenomegaly Extremity no clubbing, cyanosis or edema Skin no rashes or lesions noted Skin Narrative: Left foot wrapped with wound VAC intact Neuro no focal motor deficits Neuro Narrative: Diminished sensation in bilateral lower extremities, chronic Sensorium / Orientation: awake and alert Psych affect normal Appearance: appropriate Assessment & Plan Assessment/Plan (1) Cellulitis and abscess of foot: (2) Foot fracture, left: QUALIFIERS: Encounter type: initial encounter Fracture type: closed Qualified Code(s): S92.902A - Unspecified fracture of left foot, initial encounter for closed fracture PLAN: #Left foot cellulitis with facture of left little toe and os teomyelitis status post debridement on 12/04/2020 * s/p partial ray amputation of left little toe * MRI showed acute enhancing osteomyelitis of the fifth metatarsal head and proximal fifth phalangeal base osteomyelitis with pathologic fracture, acute fifth PIP and MCP joint effusion siwth enhancement and extgensive lateral soft tissue ulceration with enhancement,as well as diffuse muscle atrophy with myositis. * podiatry on board. * PT/OT on board. * wound gram stain growing gram positive rods, gram positive cocci, possibly Enterococcus sp and Strep agalactiae. * wound cultures negative so far * Bone cultures growing strep agalactiae * ID consulted. per discussion with ID, to continue with vancomycin and cefepime until all cultures are obtained. * 12/08/2020: Continue with antibiotics, awaiting placement #Atrial fibrillation * on eliquis and metoprolol. * #Type 2 diabetes mellitus with peripheral neuropathy * on metformin and insulin lantus 30 units daily * on gabapentin * ISS. Accuchecks ACHS * 12/08/2020: We will make adjustments to his insulin as necessary #Hypertension; on amlodipine, metoprolol and losartan DVT prophylaxis:on eliquis Charges/Coding Visit Charges Inpatient E&M: 31681 Subs Hosp L2
[2020-12-08] MEDS: Multivitamins,Ther W-Minerals Tablet 1 TABLET PO (10:33)
[2020-12-08] MEDS: metFORMIN HCl 1,000 MG Tablet 1000 MG PO ×2 (10:33→17:12)
[2020-12-08] MEDS: Aspirin 81 MG TAB.CHEW PO (10:33)
[2020-12-08 10:34] VITALS: PULSE 78
[2020-12-08] MEDS: Losartan Potassium 100 MG Tablet PO (10:34)
[2020-12-08] MEDS: Pyridoxine HCl 100 MG Tablet PO (10:34)
[2020-12-08] MEDS: amLODIPine 5 MG Tablet PO (10:34)
[2020-12-08] MEDS: APIXABAN 5 MG TABLET PO ×2 (10:34→22:09)
[2020-12-08] MEDS: Metoprolol(XL)Succ 100 MG Tablet PO (10:34)
[2020-12-08] MEDS: Menthol/Lanolin/Calamine/Znox 113 GM Tube 1 APPLIC TOPICAL ×2 (10:35→22:16)
[2020-12-08] MEDS: Nystatin Powder 15gm Bottle 1 APPLIC TOPICAL ×2 (10:35→22:16)
[2020-12-08] MEDS: Acetaminophen 325 MG Tablet 650 MG PO ×2 (12:02→18:06)
[2020-12-08] MEDS: 0.9% Saline Lock 10 ML Syringe IV (12:06)
[2020-12-08 12:11] LABS: Bedside Glucose 247 mg/dL (70-110)
--- NOTE | 2020-12-08 14:27 | CON.PCM.ID_ITS ---
Assessment & Plan Assessment/Plan (1) Osteomyelitis: QUALIFIERS: Osteomyelitis type: other acute Osteomyelitis location: foot Laterality: left Qualified Code(s): M86.172 - Other acute osteomyelitis, left ankle and foot PLAN: L foot osteo - now s/p 12/04/20 partial L 5th ray amputation. Bone clearance cx with some GBS. Wound cx with strep, enterococcus, proteus, anaerobe x2. On vanc/cefepime. Reports rash and swelling with PCN as an . Cannot recall what other abx he has taken. Will change to vanc/ceftriaxone/flagyl here. Plan on po abx at discharge for 6 week course. Will follow, thank you (2) Type 2 diabetes mellitus: QUALIFIERS: Diabetes mellitus terminal manager insulin use: with terminal manager use Diabetes mellitus complication status: with neurologic complications Diabetes mellitus complication detail: with polyneuropathy Qualified Code(s): E11.42 - Type 2 diabetes mellitus with diabetic polyneuropathy; Z79.4 - technician terminal and repeater (current) use of insulin HPI Consult Data Date of Consult: 12/08/20 HPI Narrative HPI Narrative: LANI MARRERO, is a 65 M who presented with bleeding, redness, swelling from L lateral foot wound. Hurt his foot about 2 weeks ago, noticed foot wound 5 days ago. Mild fever/chills, no recent abx. Has not gotten covid shot. Came to ED, MRI done, seen by podiatry, taken to OR 12/04 for partial L 5th ray amputation. Feeling ok, mild pain. Full ROS performed and neg except as noted above. ON LICENSE OF [facility] Medical History Atrial fibrillation Bilateral leg edema BiPAP (biphasic positive airway pressure) dependence BiPAP (biphasic positive airway pressure) dependence Diabetes Diabetes Essential (primary) hypertension History of stress test HTN (hypertension) Hyperlipidemia Irregular heartbeat Lower extremity neuropathy Morbid obesity New onset atrial fibrillation (10/01/20) Obstructive sleep apnea Pickwickian syndrome Restless legs Sleep apnea Sleep apnea Thyroid nodule Type 2 diabetes mellitus Ulcer Home Medications losartan 100 mg PO DAILY 04/04/14 [History Last Taken 12/03/20] metformin 1,000 mg PO BIDCM 04/04/14 [History Last Taken 12/03/20] amlodipine 5 mg PO DAILY 10/01/20 [History Last Taken 12/03/20] calcium carbonate-mag oxide 1 tablet PO DAILY 10/01/20 [History Last Taken 09/30/20] gabapentin 300 mg PO QHS 10/01/20 [History Last Taken 12/02/20] xmfysuyh-nwk-MI-lycopen-lutein 1 tablet PO DAILY 10/01/20 [History Last Taken 09/30/20] apixaban 5 mg PO BID #30 tablet 10/02/20 [Rx Last Taken 12/03/20] insulin glargine U-300 conc 300 unit/mL (3 mL) subcutaneous pen 30 unit SUBCUT DAILY 11/07/20 [History Last Taken 12/01/20] acetaminophen 500 mg PO Q6H PRN 12/03/20 [History Last Taken 12/03/20] aspirin [Baby Aspirin] 81 mg PO DAILY 12/03/20 [History Last Taken 12/03/20] metoprolol succinate [Toprol XL] 100 mg PO DAILY 12/03/20 [History Last Taken 12/03/20] pyridoxine (vitamin B6) [Vitamin B-6] 100 mg PO DAILY 12/03/20 [History Last Taken 12/03/20] Allergy/AdvReac Type Severity Reaction Status Date / Time ampicillin Allergy Unknown Verified 12/03/20 13:12 Penicillins Allergy Unknown Verified 12/03/20 13:12 Family History Mother Heart disease Diabetes Father Heart disease Cancer Surgical History History of wisdom tooth extraction Social History Smoking Status: Former smoker Physical Exam Const alert and no apparent distress General Appearance: cooperative HEENT normocephalic and head/scalp atraumatic Eyes PERRL and EOMs intact bilaterally Neck supple and No nodes Resp normal air movement and clear to auscultation bilaterally Cardio regular rate and regular rhythm GI normal to inspection, nondistended, normoactive bowel sounds Extremity General Extremity: edema Skin Skin Narrative: reviewed photos Neuro CN's II-XII intact bilaterally Lab / Micro Data Result Diagrams: 12/08/20 05:45 12/08/20 05:45 Labs: Laboratory Results - last 24 hr 12/07/20 12/07/20 12/07/20 17:49 21:35 21:59 WBC RBC Hgb Hct MCV MCH MCHC RDW Std Deviation RDW Coeff of Jada Plt Count MPV Immature Gran % (Auto) Neut % (Auto) Lymph % (Auto) [place] % (Auto) Eos % (Auto) Baso % (Auto) Absolute Neuts (auto) Absolute Lymphs (auto) Nucleated RBC % Sodium Potassium Chloride Carbon Dioxide Anion Gap BUN Creatinine Estim Creat Clear Calc Est GFR (MDRD) Af Amer Est GFR (MDRD) Non-Af BUN/Creatinine Ratio Glucose Calcium Vancomycin Trough 16.8 H POC Glucose 252 H 294 H 12/08/20 12/08/20 12/08/20 05:45 05:45 06:51 WBC 6.7 RBC 3.85 L Hgb 10.0 L Hct 32.4 L MCV 84.2 MCH 26.0 L MCHC 30.9 L RDW Std Deviation 42.5 RDW Coeff of Jada 14.1 Plt Count 261 MPV 9.2 Immature Gran % (Auto) 0.900 Neut % (Auto) 63.8 Lymph % (Auto) 25.5 [place] % (Auto) 6.3 Eos % (Auto) 3.0 Baso % (Auto) 0.5 Absolute Neuts (auto) 4.3 Absolute Lymphs (auto) 1.70 Nucleated RBC % 0 Sodium 139 Potassium 3.8 Chloride 104 Carbon Dioxide 30.0 Anion Gap 5 BUN 15 Creatinine 0.59 L Estim Creat Clear Calc 70.30 Est GFR (MDRD) Af Amer 176 Est GFR (MDRD) Non-Af 146 BUN/Creatinine Ratio 25.4 H Glucose 211 H Calcium 8.7 Vancomycin Trough POC Glucose 221 H 12/08/20 11:55 WBC RBC Hgb Hct MCV MCH MCHC RDW Std Deviation RDW Coeff of Jada Plt Count MPV Immature Gran % (Auto) Neut % (Auto) Lymph % (Auto) [place] % (Auto) Eos % (Auto) Baso % (Auto) Absolute Neuts (auto) Absolute Lymphs (auto) Nucleated RBC % Sodium Potassium Chloride Carbon Dioxide Anion Gap BUN Creatinine Estim Creat Clear Calc Est GFR (MDRD) Af Amer Est GFR (MDRD) Non-Af BUN/Creatinine Ratio Glucose Calcium Vancomycin Trough POC Glucose 247 H Micro: Microbiology 12/03/20 14:00 Blood Culture - Final Blood Culture (Wb) - Anticubital Right No growth in 5 days. 12/03/20 18:00 Gram Stain - Final Wound - Left Foot Wound Culture - Preliminary Proteus mirabilis Enterococcus faecalis Anaerobic Culture - Preliminary Gram negative [place] Anaerobic cocci 12/04/20 Unknown Gram Stain - Final Bone - Left Foot Wound Culture - Final Streptococcus agalactiae (B) Anaerobic Culture - Preliminary Checking for anaerobes, further studies to follow. 12/04/20 Unknown Gram Stain - Final Wound - Left Foot Wound Culture - Final Anaerobic Culture - Preliminary Checking for anaerobes, further studies to follow.
[2020-12-08 15:40] VITALS: BP 125/56; PULSE 75; RESP 18; TEMP 37.3; O2SAT 97
[2020-12-08 17:05] LABS: Bedside Glucose 197 mg/dL (70-110)
[2020-12-08 21:00] VITALS: BP 146/81; PULSE 80; RESP 16; TEMP 36.6; O2SAT 99
[2020-12-08] MEDS: Gabapentin 300 MG Capsule PO (22:09)
[2020-12-08] MEDS: metroNIDAZOLE 500 MG Tablet PO (22:09)
[2020-12-09 02:30] VITALS: BP 126/87; PULSE 87; RESP 16; TEMP 36.4; O2SAT 97
[2020-12-09] MEDS: metroNIDAZOLE 500 MG Tablet PO ×2 (06:02→13:45)
[2020-12-09 06:12] LABS: Absolute Lymphocyte Count 1.75 X10^3/uL (0.83-4.51); Basophil# 0.06 X10^3/uL; Basophil% 0.9 % (0-1); Eosinophil# 0.15 X10^3/uL; Eosinophils% 2.3 % (0-5); Hematocrit 34.1 % (40-54); Hemoglobin 10.5 g/dL (13.0-16.5); Lymphocyte # 1.75 X10^3/ul (0.83-4.51); Lymphocyte % 27.3 % (19-41); Mean Corp Hgb Conc 30.8 g/dL (32-36); Mean Corpuscular Hgb 26.8 pg (27.0-32.0); Mean Platelet Vol. 10.3 fl (6.2-12.0); Monocyte# 0.45 X10^3/uL; NRBC Flagged by Analyzer 0.3 % (0-5); Neutrophil # 3.96 X10^3/uL (2.7-7.7); Neutrophil % 61.9 % (47-70); Platelet Count 272 K/mm3 (150-450); RBC Distribution Width CV 14.6 % (11.6-14.6); RBC Distribution Width SD 45.2 fl (35.1-43.9); Red Blood Count 3.92 M/mm3 (4.6-6.2); White Blood Count 6.4 K/mm3 (4.4-11.0)
[2020-12-09 06:43] LABS: Anion Gap 5 (5-15); BUN 13 mg/dL (7-18); BUN/Creat Ratio 21.7 RATIO (10-20); Calcium,Total 8.5 mg/dL (8.5-10.1); Chloride 108 mmol/L (98-107); EST Glomerular Filtration Rate 144 mL/min (>60); Est Glom Filt Rate - Afr Amer 174 mL/min (>60); Glucose 151 mg/dL (74-106); Potassium 4.3 mmol/L (3.5-5.1); Sodium Level 132 mmol/L (136-145)
--- NOTE | 2020-12-09 06:52 | PN_ITS ---
Subjective Subjective 65-year-old diabetic male was seen bedside for left foot fifth ray resection secondary to infection. He denies fever, chill, nausea, vomiting, calf pain, or foot morning. He is waiting for shelter facility placement. Objective Data Objective Data Vital Signs: Vital Signs Temp Pulse Resp BP Pulse Ox 97.6 F L 87 16 126/87 H 97 12/09/20 02:30 12/09/20 02:30 12/09/20 02:30 12/09/20 02:30 12/09/20 02:30 Oxygen Flow Rate (L/min) 1 Oxygen Delivery Method Bi-pap Weight: 175.4 kg Body Mass Index (BMI) 58.8 Intake & Output: Intake and Output for Last 24 Hours 12/07/20 12/08/20 12/09/20 23:59 23:59 23:59 Intake Total 3470.00 / 3470.00 2572.5 / 2572.5 540 / 540 Output Total 2500 / 2500 2300 / 2650 1350 / 1350 Balance 970.00 / 970.00 272.5 / -77.5 -810 / -810 Lab / Micro Data Result Diagrams: 12/09/20 05:38 12/09/20 05:38 Labs: Laboratory Results - last 24 hr 12/08/20 12/08/20 12/08/20 06:51 11:55 16:58 WBC RBC Hgb Hct MCV MCH MCHC RDW Std Deviation RDW Coeff of Jada Plt Count MPV Immature Gran % (Auto) Neut % (Auto) Lymph % (Auto) [place] % (Auto) Eos % (Auto) Baso % (Auto) Absolute Neuts (auto) Absolute Lymphs (auto) Nucleated RBC % Sodium Potassium Chloride Carbon Dioxide Anion Gap BUN Creatinine Estim Creat Clear Calc Est GFR (MDRD) Af Amer Est GFR (MDRD) Non-Af BUN/Creatinine Ratio Glucose Calcium POC Glucose 221 H 247 H 197 H 12/09/20 12/09/20 05:38 05:38 WBC 6.4 RBC 3.92 L Hgb 10.5 L Hct 34.1 L MCV 87.0 MCH 26.8 L MCHC 30.8 L RDW Std Deviation 45.2 H RDW Coeff of Jada 14.6 Plt Count 272 MPV 10.3 Immature Gran % (Auto) 0.600 Neut % (Auto) 61.9 Lymph % (Auto) 27.3 [place] % (Auto) 7.0 Eos % (Auto) 2.3 Baso % (Auto) 0.9 Absolute Neuts (auto) 4.0 Absolute Lymphs (auto) 1.75 Nucleated RBC % 0.3 Sodium 132 L Potassium 4.3 Chloride 108 H Carbon Dioxide 19.0 L Anion Gap 5 BUN 13 Creatinine 0.60 L Estim Creat Clear Calc 70.30 Est GFR (MDRD) Af Amer 174 Est GFR (MDRD) Non-Af 144 BUN/Creatinine Ratio 21.7 H Glucose 151 H Calcium 8.5 POC Glucose Micro: Microbiology 12/03/20 14:20 Blood Culture (Wb) - Anticubital Left Blood Culture - Final No growth in 5 days. 12/03/20 14:00 Blood Culture (Wb) - Anticubital Right Blood Culture - Final No growth in 5 days. 12/03/20 18:00 Wound - Left Foot Gram Stain - Final 12/03/20 18:00 Wound - Left Foot Wound Culture - Preliminary Proteus mirabilis Enterococcus faecalis 12/03/20 18:00 Wound - Left Foot Anaerobic Culture - Preliminary Gram negative [place] Anaerobic cocci 12/04/20 Unknown Bone - Left Foot Gram Stain - Final 12/04/20 Unknown Bone - Left Foot Wound Culture - Final Streptococcus agalactiae (B) 12/04/20 Unknown Bone - Left Foot Anaerobic Culture - Preliminary Checking for anaerobes, further studies to follow. 12/04/20 Unknown Wound - Left Foot Gram Stain - Final 12/04/20 Unknown Wound - Left Foot Wound Culture - Final 12/04/20 Unknown Wound - Left Foot Anaerobic Culture - Preliminary Checking for anaerobes, further studies to follow. 12/04/20 10:55 Mucosa - Nose SARS-CoV-2 Antigen (Rapid) - Final Physical Exam Const alert and no apparent distress General Appearance: cooperative and comfortable Nutritional Appearance: morbidly obese Resp normal respiratory effort Effort and Inspection: able to speak in complete sentences Extremity normal capillary refill and no calf tenderness General Extremity: edema bilateral lower extremity, no tenderness to palpation of joints or extremities and other findings Other Details: Capillary refill time less than 3 seconds noted to digits ; Negative for clubbing or cyanosis Skin General Skin Exam: atrophy and dry skin Rashes: no rashes Wound Narrative: Dressing is noted to be clean dry intact with wound VAC present with good seal. No adjacent erythema, streaking or odor. No evidence of leaking. The adjacent skin is hairless and atrophic. Partial fifth ray amputation left foot. Compartments remain soft to palpate. 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: (5) Morbid obesity: (6) Type 2 diabetes mellitus: QUALIFIERS: Diabetes mellitus senior living insulin use: with senior living use Diabetes mellitus complication status: with neurologic complications Diabetes mellitus complication detail: with polyneuropathy Qualified Code(s): E11.42 - Type 2 diabetes mellitus with diabetic polyneuropathy; Z79.4 - long term care pharmacist (current) use of insulin (7) Diabetes: QUALIFIERS: Diabetes mellitus type: type 2 Diabetes mellitus senior living insulin use: with senior living use Diabetes mellitus complication status: with skin complications Diabetes mellitus complication detail: with foot ulcer Qualified Code(s): E11.621 - Type 2 diabetes mellitus with foot ulcer; L97.509 - Non-pressure chronic ulcer of other part of unspecified foot with unspecified severity; Z79.4 - care home (current) use of insulin PLAN: Patient seen and examined bedside. He is afebrile with vital signs stable. Wound VAC is present with good seal. This patient is status post partial fifth ray amputation 12/04/2020. The VAC was changed and the wound site was evaluated yesterday. This will be treated with wound care locally at this time. His local signs of infection are resolving and he does not have any purulence today. Continue antibiotics. Noted ID consult, follow recommendations. He is on IV cefepime and vancomycin. Surgical clearance fragment with strep agalaciae so far. Preoperative wound culture with proteus, enterococcus faecalis, and anaerobes. Preoperative MRI of left foot showed osteomyelitis of the fifth metatarsal head and digit. Postop x-ray was reviewed showing partial fifth ray amputation left foot. Antibiotics will be changed to oral vanc/ceftriaxone/flagyl for 6 weeks at time of discharge. Blood work reviewed showing no leukocytosis. OR Wound cultures were to proximal margin fifth metatarsal are growing Streptococcus agalactiae. Blood cultures show no growth to date. Initial wound cultures noted to be growing Proteus Mirabilis, Enterococcus faecalis, Streptococcus agalactiae. LEAS showed triphasic pulses bilaterally DP and PT. Right MEENA is 1.06 and TBI 0.80. Left MEENA is 0.97 and TBI 0.88. This suggests adequate perfusion for healing. Venous studies showed no evidence of acute DVT to bilateral lower extremities with patent and compressible bilateral great saphenous veins. Plan to discharge on wound VAC therapy. Recommended limited weightbearing especially to the forefoot so as to not break seal on the VAC therapy and optimize healing potentials. Recommend nonweightbearing to the left foot but can put some weight through the heel if necessary. Surgical shoe ordered. We will proceed with palliative care, as well as monitoring. All of his questions were answered. longterm facility placement is pending. Medical management per hospitalist noted. Please contact if any questions or concerns. Patient is to follow-up at the wound care center with Dr. Colvin upon discharge within 1 week or at [facility] office if unable to get into wound care center. Rocio Valverde DPM, [facility] [phone] This note was generated with [employer] dictation software. It may contain incorrect words, spelling, and punctuation that were not noted in checking the note before signing.
[2020-12-09 08:00] VITALS: BP 132/72; PULSE 89; RESP 16; TEMP 37.2; O2SAT 95
--- NOTE | 2020-12-09 08:21 | NURSING ---
Pt with increased edema noted to bilateral lower legs today. Pt states he spent a lot of time up in the chair yesterday with legs dependent. applied HAIDER wraps to bilateral lower legs from the base of the toes to just below the knees. Pt tolerated well.
[2020-12-09 08:38] LABS: Bedside Glucose 212 mg/dL (70-110)
[2020-12-09 08:39] LABS: Bedside Glucose 168 mg/dL (70-110)
[2020-12-09 09:37] VITALS: PULSE 80
[2020-12-09] MEDS: Aspirin 81 MG TAB.CHEW PO (09:37)
[2020-12-09] MEDS: APIXABAN 5 MG TABLET PO (09:37)
[2020-12-09] MEDS: metFORMIN HCl 1,000 MG Tablet 1000 MG PO (09:37)
[2020-12-09] MEDS: Multivitamins,Ther W-Minerals Tablet 1 TABLET PO (09:37)
[2020-12-09] MEDS: Metoprolol(XL)Succ 100 MG Tablet PO (09:37)
[2020-12-09] MEDS: Losartan Potassium 100 MG Tablet PO (09:37)
[2020-12-09] MEDS: amLODIPine 5 MG Tablet PO (09:37)
[2020-12-09] MEDS: Nystatin Powder 15gm Bottle 1 APPLIC TOPICAL (09:38)
[2020-12-09] MEDS: Insulin Lispro 100 UNIT/ML INSULN.PEN SC ×2 (09:38)
[2020-12-09] MEDS: Menthol/Lanolin/Calamine/Znox 113 GM Tube 1 APPLIC TOPICAL (09:38)
--- NOTE | 2020-12-09 10:22 | PCM.PN.ID ---
Physical Exam Narrative Feeling ok, some upset stomach with flagyl, no rash or itching. Const alert General Appearance: cooperative Resp normal air movement and clear to auscultation bilaterally Cardio regular rate and regular rhythm GI normal to inspection, nondistended, normoactive bowel sounds Extremity General Extremity: edema Skin no rashes or lesions noted ID ID: Route of nutrition/ use of supplements: [] Nutritional Intake: [] IV Site: [] Franks Catheter: [] Assessment & Plan Assessment/Plan (1) Osteomyelitis: QUALIFIERS: Osteomyelitis type: other acute Osteomyelitis location: foot Laterality: left Qualified Code(s): M86.172 - Other acute osteomyelitis, left ankle and foot PLAN: L foot osteo - now s/p 12/04/20 partial L 5th ray amputation. Bone clearance cx with some GBS. Wound cx with strep, enterococcus, proteus, anaerobe x2. On vanc/cefepime. Reports rash and swelling with PCN as an infant. Cannot recall what other abx he has taken. 12/08 changed to vanc/ceftriaxone/flagyl here. Plan on po abx keflex and flagyl at discharge for 6 week course. Will also do 10 day course of linezolid for enterococcal coverage. Will follow, ID followup in 3 weeks. Wrote rx. D/w him re: importance of covid vaccine, he is considering it. (2) Type 2 diabetes mellitus: QUALIFIERS: Diabetes mellitus petroleum terminal plant operator insulin use: with petroleum terminal plant operator use Diabetes mellitus complication status: with neurologic complications Diabetes mellitus complication detail: with polyneuropathy Qualified Code(s): E11.42 - Type 2 diabetes mellitus with diabetic polyneuropathy; Z79.4 - termite inspector (current) use of insulin
--- NOTE | 2020-12-09 12:29 | TREXTCAR_ITS ---
Diet 12/04/20 14:01 Diet: Carbohydrate Controlled Food consistency:: Regular Liquid Consistency:: Regular/Thin Type of Dietary Supplement:: Is pt able to select menu?: Yes Routine Orders/Code Status Routine Lab Work: CBC and BMP Code Status: Full Code Wound(s) left foot: Wound Type: Neuropathic/Diabetic Foot Ulcer Dressing Change: KCI wound VAC Therapies Weight Bearing: Non weight bearing Problem/Diagnosis (1) Osteomyelitis: Status: Acute (2) Type 2 diabetes mellitus: Status: Chronic Allergies/Procedures Done in Hospital Allergies ampicillin Allergy (Verified 12/03/20 13:12) Unknown Penicillins Allergy (Verified 12/03/20 13:12) Unknown Procedures: None Type of Care/Length of Stay Estimated LOS: Convalescent Care Less Than 30 days Type of Care Needed: Skilled Rehab Potential: Good Prognosis: Good Additional Orders/Day of Discharge Day of Discharge: 12/09/20 Dietary and Speech Recommendations Dietitian Recommendations/Changes: Continue Carbohydrate Controlled diet Discontinue 1 pkt Yossi BID at breakfast and lunch and continue order for Yossi BID w/ medpass. Discharge Plan Admission Admit Date/Time: 12/03/20 17:18 Attending Provider: Bakari Almaguer Primary Care Provider: Bernabe Reese Consulting Providers: Amelie Colvin ; Gregorio Mccarthy Instructions Additional Instructions / Restrictions: continue wound vac changed 3 times a week at 150mmHg low continuous pressure. Ensure good seal. NWB left foot Discharge Orders/Prescriptions Prescriptions: New cephalexin 500 mg capsule 500 mg PO TID Qty: 110 RF: 0 metronidazole [Flagyl] 500 mg tablet 500 mg PO TID Qty: 110 RF: 0 linezolid 600 mg tablet 600 mg PO Q12H 10 Days Qty: 20 RF: 0 Continued Toujeo Max U-300 SoloStar 300 unit/mL (3 mL) insulin pen 30 unit subcut DAILY RF: 0 metformin 1,000 MG tablet 1,000 mg PO BIDCM RF: 0 losartan 100 MG tablet 100 mg PO DAILY RF: 0 amlodipine 5 MG tablet 5 mg PO DAILY RF: 0 gabapentin 300 MG capsule 300 mg PO QHS RF: 0 calcium carbonate-mag oxide 1 EACH tablet 1 tablet PO DAILY RF: 0 cniqucve-xnc-YH-lycopen-lutein 1 EACH tablet 1 tablet PO DAILY RF: 0 apixaban 5 MG tablet 5 mg PO BID Qty: 30 RF: 1 metoprolol succinate [Toprol XL] 100 mg Tablet Extended Release 24 Hr 100 mg PO DAILY RF: 0 acetaminophen 500 mg Tablet 500 mg PO Q6H PRN (Reason: Pain) RF: 0 aspirin 81 mg Tablet,Chewable 81 mg PO DAILY RF: 0 pyridoxine (vitamin B6) [Vitamin B-6] 100 mg Tablet 100 mg PO DAILY RF: 0 Referrals / Follow Up: [facility] [Outside] (in [address] Colvin s/p surgery. Call [phone]) Bernabe Reese MD [Primary Care Provider] - Gregorio Mccarthy MD [STAFF PHYSICIAN] - See Referral Note (3 weeks) Disposition Disposition (needs filled in before D/C Order can be placed): [facility]
--- NOTE | 2020-12-09 12:46 | DS.PCM_ITS ---
Providers Date of Admission: 12/03/20 Primary Care Physician: Dr. Bernabe Reese MD Consultations 12/03/20 18:59 Consult: Onc/Wound/scout executive Routine Comment: Reason for Consult:: left foot wound Consult: Podiatry Routine Consulting Provider: Amelie Colvin Reason for Consult: Left foot dm ulcer EMERGENT Consult: No Notified: Yes Date Notified: 12/03/20 Time Notified: 17:19 Method of Notification: Verbal 12/05/20 15:14 Consult: Infectious Disease Routine Consulting Provider: Gregorio Mccarthy Reason for Consult: osteomyelitis of left little toe EMERGENT Consult: No Notified: Yes Date Notified: 12/05/20 Time Notified: 15:14 Method of Notification: Verbal Reason For Visit: CELLULITIS, LEFT DIABETIC FOOT ULCER Diagnosis Discharge Diagnosis (1) Osteomyelitis: Status: Acute Code(s): M86.9 - Osteomyelitis, unspecified Qualifiers: Osteomyelitis type: other acute Osteomyelitis location: foot Laterality: left Qualified Code(s): M86.172 - Other acute osteomyelitis, left ankle and foot (2) Type 2 diabetes mellitus: Status: Chronic Code(s): E11.9 - Type 2 diabetes mellitus without complications Qualifiers: Diabetes mellitus intermediate insulin use: with intermediate use Diabetes mellitus complication status: with neurologic complications Diabetes mellitus complication detail: with polyneuropathy Qualified Code(s): E11.42 - Type 2 diabetes mellitus with diabetic polyneuropathy; Z79.4 - prison (current) use of insulin Medications at Discharge Home Medications losartan 100 mg PO DAILY 04/04/14 metformin 1,000 mg PO BIDCM 04/04/14 amlodipine 5 mg PO DAILY 10/01/20 calcium carbonate-mag oxide 1 tablet PO DAILY 10/01/20 gabapentin 300 mg PO QHS 10/01/20 bcstrqnu-hxg-SW-lycopen-lutein 1 tablet PO DAILY 10/01/20 apixaban 5 mg PO BID #30 tablet 10/02/20 insulin glargine U-300 conc 300 unit/mL (3 mL) subcutaneous pen 30 unit SUBCUT DAILY 11/07/20 acetaminophen 500 mg PO Q6H PRN 12/03/20 aspirin 81 mg PO DAILY 12/03/20 metoprolol succinate [Toprol XL] 100 mg PO DAILY 12/03/20 pyridoxine (vitamin B6) [Vitamin B-6] 100 mg PO DAILY 12/03/20 cephalexin 500 mg PO TID #110 cap 12/09/20 linezolid 600 mg PO Q12H 10 Days #20 tab 12/09/20 metronidazole [Flagyl] 500 mg PO TID #110 tab 12/09/20 Hospital Course Operations - (Partial fifth amputation left foot) Procedures None Summary of Care Provided Minutes Spent on Discharge: 35 Hospital Course: Per HPI: Patient is a 65-year-old male who presents to the ED at [facility] on 12/02/2020 with a chief complaint of draining left foot wound and cellulitis that has been getting gradually worse. She reports that a couple days ago he noticed that there was blood on his sock from a draining wound. Patient reports that over the past few days the wound has been getting progressively worse and that pus is now draining in addition to the blood. Patient is unclear about any precipitating wounds to his foot that may have caused this injury. Patient endorses bilateral lower extremity pain, however reports that this is chronic and does not believe this is related to his new foot wound. Denies chest pain, shortness of breath, palpitations, hemoptysis, sputum production, fever, chills, N/V/D. Patient denies any difficulties urinating. Past medical history is significant for atrial fibrillation, diabetes, hypertension, hyperlipidemia, diabetes 2 with lower extremity neuropathy, morbid obesity, TODD and obesity hypoventilation syndrome. Vital signs are stable and patient is afebrile. CBC does not not demonstrate a leukocytosis and is overall unremarkable. Lactic acid is elevated at 3.2. X- ray of the left foot demonstrates a nondisplaced fracture of the base of the distal phalanx of the fifth toe with overlying soft tissue swelling and emphysema. Patient was started on clindamycin and vancomycin in the ED. Hospital Course: #Left foot cellulitis with facture of left little toe and osteomyelitis status post debridement on 12/04/2020 s/p partial ray amputation of left little toe MRI showed acute enhancing osteomyelitis of the fifth metatarsal head and proximal fifth phalangeal base osteomyelitis with pathologic fracture, acute fifth PIP and MCP joint effusion siwth enhancement and extgensive lateral soft tissue ulceration with enhancement,as well as diffuse muscle atrophy with myositis. podiatry on board. PT/OT on board. wound gram stain growing gram positive rods, gram positive cocci, possibly Enterococcus sp and Strep agalactiae. wound cultures negative so far Bone cultures growing strep agalactiae ID consulted. per discussion with ID, to continue with vancomycin and cefepime until all cultures are obtained. 12/08/2020: Continue with antibiotics, awaiting placement 12/09/2020: Stable for discharge today, infectious disease evaluated him and recommended oral antibiotics for total of 6 weeks, including Keflex and Flagyl. We will also do linezolid for 10 more days. I did discuss with him the plan for discharge today and he expressed understanding of the risk and benefits of going to the shelter and would like to go today. Would recommend outpatient monitoring of his CBC and his BMP to monitor his renal function as well as electrolytes secondary to his antibiotics. #Atrial fibrillation on eliquis and metoprolol. #Type 2 diabetes mellitus with peripheral neuropathy on metformin and insulin lantus 30 units daily on gabapentin ISS. Accuchecks ACHS 12/08/2020: We will make adjustments to his insulin as necessary 12/09/2020: Blood sugar has been elevated likely in conjunction with his infection, would recommend sliding scale insulin at the shelter. #Hypertension; on amlodipine, metoprolol and losartan Physical Exam Const alert, oriented x3 and no apparent distress General Appearance: cooperative Exam Limitations: no limitations HEENT normocephalic and moist oral mucous membranes Eyes PERRL, EOMs intact bilaterally and conjunctivae normal Neck supple and no JVD Resp normal respiratory effort, no retractions, no use of accessory muscles and clear to auscultation bilaterally Auscultation: Negative for crackles, rales, rhonchi or wheezes Cardio regular rate, regular rhythm, S1 normal heart sound, S2 normal heart sound and no murmurs GI soft to palpation, non-tender and non-distended; Negative for hepatosplenomegaly Extremity no clubbing, cyanosis or edema Skin no rashes or lesions noted Skin Narrative: Left foot wrapped with wound VAC intact Neuro oriented x3 and no focal motor deficits Neuro Narrative: Diminished sensation in bilateral lower extremities, chronic Psych affect normal Appearance: appropriate Weight / BMI Weight Weight: 386 lb 11.053 oz Body Mass Index (BMI) 58.8 ABG / Lab / Microbiology Data Result Diagrams: 12/09/20 05:38 12/09/20 05:38 Laboratory: Laboratory Results - last 24 hr 12/08/20 12/08/20 12/09/20 16:58 22:05 05:38 WBC 6.4 RBC 3.92 L Hgb 10.5 L Hct 34.1 L MCV 87.0 MCH 26.8 L MCHC 30.8 L RDW Std Deviation 45.2 H RDW Coeff of Jada 14.6 Plt Count 272 MPV 10.3 Immature Gran % (Auto) 0.600 Neut % (Auto) 61.9 Lymph % (Auto) 27.3 Grant % (Auto) 7.0 Eos % (Auto) 2.3 Baso % (Auto) 0.9 Absolute Neuts (auto) 4.0 Absolute Lymphs (auto) 1.75 Nucleated RBC % 0.3 Sodium Potassium Chloride Carbon Dioxide Anion Gap BUN Creatinine Estim Creat Clear Calc Est GFR (MDRD) Af Amer Est GFR (MDRD) Non-Af BUN/Creatinine Ratio Glucose Calcium POC Glucose 197 H 212 H 12/09/20 12/09/20 05:38 08:23 WBC RBC Hgb Hct MCV MCH MCHC RDW Std Deviation RDW Coeff of Jada Plt Count MPV Immature Gran % (Auto) Neut % (Auto) Lymph % (Auto) Grant % (Auto) Eos % (Auto) Baso % (Auto) Absolute Neuts (auto) Absolute Lymphs (auto) Nucleated RBC % Sodium 132 L Potassium 4.3 Chloride 108 H Carbon Dioxide 19.0 L Anion Gap 5 BUN 13 Creatinine 0.60 L Estim Creat Clear Calc 70.30 Est GFR (MDRD) Af Amer 174 Est GFR (MDRD) Non-Af 144 BUN/Creatinine Ratio 21.7 H Glucose 151 H Calcium 8.5 POC Glucose 168 H Microbiology: Microbiology 12/03/20 18:00 Gram Stain - Final Wound - Left Foot Wound Culture - Preliminary Proteus mirabilis Enterococcus faecalis Streptococcus group B Anaerobic Culture - Final Bacteroides fragilis Anaerobic cocci 12/04/20 Unknown Gram Stain - Final Wound - Left Foot Wound Culture - Preliminary Anaerobic Culture - Final Anaerobic cocci 12/04/20 Unknown Gram Stain - Final Bone - Left Foot Wound Culture - Final Streptococcus agalactiae (B) Anaerobic Culture - Final Anaerobic cocci 12/03/20 14:20 Blood Culture - Final Blood Culture (Wb) - Anticubital Left No growth in 5 days. 12/03/20 14:00 Blood Culture - Final Blood Culture (Wb) - Anticubital Right No growth in 5 days. Microbiology 12/03/20 18:00 Wound - Left Foot Gram Stain - Final 12/03/20 18:00 Wound - Left Foot Wound Culture - Preliminary Proteus mirabilis Enterococcus faecalis Streptococcus group B 12/03/20 18:00 Wound - Left Foot Anaerobic Culture - Final Bacteroides fragilis Anaerobic cocci 12/04/20 Unknown Wound - Left Foot Gram Stain - Final 12/04/20 Unknown Wound - Left Foot Wound Culture - Preliminary 12/04/20 Unknown Wound - Left Foot Anaerobic Culture - Final Anaerobic cocci 12/04/20 Unknown Bone - Left Foot Gram Stain - Final 12/04/20 Unknown Bone - Left Foot Wound Culture - Final Streptococcus agalactiae (B) 12/04/20 Unknown Bone - Left Foot Anaerobic Culture - Final Anaerobic cocci 12/03/20 14:20 Blood Culture (Wb) - Anticubital Left Blood Culture - Final No growth in 5 days. 12/03/20 14:00 Blood Culture (Wb) - Anticubital Right Blood Culture - Final No growth in 5 days. 12/04/20 10:55 Mucosa - Nose SARS-CoV-2 Antigen (Rapid) - Final Meaningful Use Info Meaningful Use Diagnoses (Choose all that apply): None applicable Discharge Plan Admission Admit Date/Time: 12/03/20 17:18 Attending Provider: Bakari Almaguer Primary Care Provider: Bernabe Reese Consulting Providers: Amelie Colvin ; Gregorio Mccarthy Instructions Additional Instructions / Restrictions: continue wound vac changed 3 times a week at 150mmHg low continuous pressure. Ensure good seal. NWB left foot Discharge Orders/Prescriptions Prescriptions: New cephalexin 500 mg capsule 500 mg PO TID Qty: 110 RF: 0 metronidazole [Flagyl] 500 mg tablet 500 mg PO TID Qty: 110 RF: 0 linezolid 600 mg tablet 600 mg PO Q12H 10 Days Qty: 20 RF: 0 Continued Toujeo Max U-300 SoloStar 300 unit/mL (3 mL) insulin pen 30 unit subcut DAILY RF: 0 metformin 1,000 MG tablet 1,000 mg PO BIDCM RF: 0 losartan 100 MG tablet 100 mg PO DAILY RF: 0 amlodipine 5 MG tablet 5 mg PO DAILY RF: 0 gabapentin 300 MG capsule 300 mg PO QHS RF: 0 calcium carbonate-mag oxide 1 EACH tablet 1 tablet PO DAILY RF: 0 dnvchopf-zks-WK-lycopen-lutein 1 EACH tablet 1 tablet PO DAILY RF: 0 apixaban 5 MG tablet 5 mg PO BID Qty: 30 RF: 1 metoprolol succinate [Toprol XL] 100 mg Tablet Extended Release 24 Hr 100 mg PO DAILY RF: 0 acetaminophen 500 mg Tablet 500 mg PO Q6H PRN (Reason: Pain) RF: 0 aspirin 81 mg Tablet,Chewable 81 mg PO DAILY RF: 0 pyridoxine (vitamin B6) [Vitamin B-6] 100 mg Tablet 100 mg PO DAILY RF: 0 Referrals / Follow Up: Wound Health [Outside] (in [address] Colvin s/p surgery. Call [phone]) Bernabe Reese MD [Primary Care Provider] - Gregorio Mccarthy MD [STAFF PHYSICIAN] - See Referral Note (3 weeks) Disposition Disposition (needs filled in before D/C Order can be placed): Detention Facility Charges/Coding Visit Charges Inpatient E&M: 99088 Disch Hosp
[2020-12-09 13:10] LABS: Bedside Glucose 164 mg/dL (70-110)
--- NOTE | 2020-12-09 15:00 | CASEMGMT ---
Social Work Note ALVARADO spoke with Jazmín at [facility], [facility] is able to accept pt today. Pt will need new COVID test. ALVARADO faxed updated clinicals to [facility]. SW in to speak with pt regarding advanced directives. Pt completed advanced directives. Original provided to pt and copy placed on pt's chart. SW updated pt that he will discharge to [facility] today. Pt states understanding. ALVARADO faxed completed discharge paperwork to [facility] including transfer to extended care facility, signed medication list, any scripts, COVID test and COVID tool. Original in SNF folder and copy on pt's chart. ALVARADO completed [facility] [place]. Original in SNF folder and copy on pt's chart. ALVARADO spoke with RN, pt can transport via bariatric cot. ALVARADO accessed trip assist and arranged transportation via bariatric cot for 4:30pm. Transportation form completed and placed on SNF folder and copy on pt's chart. ALVARADO updated RN on transportation time. ALVARADO updated pt on transportation time. ALVARADO placed a call to Jazmín at [facility] and left message updating her on transportation time. Plan: [facility] skilled today with Physician's transporting pt via bariatric cot at 4:30pm. Jazmín Coffman [employer], BOX MACHINE OPERATOR
[2020-12-09 15:20] VITALS: BP 138/71; PULSE 88; RESP 16; TEMP 37.1; O2SAT 95
[2020-12-09] MEDS: Acetaminophen 325 MG Tablet 650 MG PO (15:25)
--- NOTE | 2020-12-09 17:01 | NURSING ---
1630 attempted to call report to [facility], no answer 1704 report called to [facility]
== END 2020-12-09 17:00 | disposition skilled nursing facility (03) | DRG 617 ==
LOC: ED 17:13 → MS3 17:31
PROVIDERS: Podiatrist Foot & Ankle Surgery; Student in an Organized Health Care Education/Training Program; Admitting Provider Family Medicine; Emergency Provider Emergency Medicine; PCP Family Medicine; Visit Provider Family Medicine
PROC: 0KBW0ZZ Excision of Left Foot Muscle, Open Approach (ICD-10-PCS; principal; 2020-12-04 12:15)
DX: E11.621 Type 2 diabetes mellitus with foot ulcer (principal); M86.172 Other acute osteomyelitis, left ankle and foot; E66.2 Morbid (severe) obesity with alveolar hypoventilation; Z68.44 Body mass index [BMI] 60.0-69.9, adult; L03.116 Cellulitis of left lower limb; M84.475A Pathological fracture, left foot, initial encounter for fracture; B96.4 Proteus (mirabilis) (morganii) as the cause of diseases classified elsewhere; B95.1 Streptococcus, group B, as the cause of diseases classified elsewhere; B96.89 Other specified bacterial agents as the cause of diseases classified elsewhere; E11.69 Type 2 diabetes mellitus with other specified complication; L97.524 Non-pressure chronic ulcer of other part of left foot with necrosis of bone; E11.42 Type 2 diabetes mellitus with diabetic polyneuropathy; L60.3 Nail dystrophy; E78.5 Hyperlipidemia, unspecified; G25.81 Restless legs syndrome; I10 Essential (primary) hypertension; E04.1 Nontoxic single thyroid nodule; I48.91 Unspecified atrial fibrillation; Z87.891 Personal history of nicotine dependence; Z79.84 Long term (current) use of oral hypoglycemic drugs; Z79.01 Long term (current) use of anticoagulants; Z79.82 Long term (current) use of aspirin; Z79.899 Other long term (current) drug therapy
CPT/HCPCS: 36415; 70030; 73630; 73720; 80048; 80053; 80202; 82962; 83036; 83605; 84484; 85025; 85610; 85652; 85730; 86140; 87015; 87040; 87070; 87075; 87077; 87102; 87116; 87176; 87186; 87205; 87206; 87426; 87640; 88304; 88305; 88311; 93005; 93923; 93970; 94002; 94003; 97110; 97162; 97166; 97530; 97535; 97802; 99285; A9575; J7030; J7040; J7050; A4216; J0696; J2405

== ENCOUNTER 2020-12-16 07:50 | Outpatient (RCR) | payer MEDICARE, OTHER, SELFPAY ==
[2020-12-04 11:24] VITALS: BMI 58.8
[2020-12-16 08:15] VITALS: BP 151/79; PULSE 96; RESP 24; TEMP 36.5; BMI 56.1
--- NOTE | 2020-12-16 09:12 | PCM.WC.PN ---
History of Present Illness Date of Service: 12/16/20 Chief Complaint: Left foot fifth ray resection amputation site History of Wound: Patient presents today status post partial fifth ray resection Progress of Wound: Patient is 65-year-old male who presented to the emergency room with a left foot wound and infection. Patient was hospitalized at that time. MRI was obtained with noted osteomyelitis of the fifth metatarsal head. Patient underwent partial fifth ray resection with Dr. Colvin on 12/04/2020. Patient is seen by infectious disease while in the hospital and given operative culture results was discharged on antibiotics p.o. Flagyl and Keflex per Dr. Mccarthy. Patient was also discharged with wound VAC to remaining ulceration given the large deficit of the ulceration not being able to close completely during surgery. Patient was discharged to [facility] Subjective Patient seen and examined resting comfortably. Patient denies any new pedal complaints. Patient denies any nausea, fever, chills, chest pain, shortness of breath, cough, streaking, purulence, vomiting. Objective Data Objective Data Vital Signs: Vital Signs Temp Pulse Resp BP 97.7 F L 96 24 H 151/79 H 12/16/20 08:15 12/16/20 08:15 12/16/20 08:15 12/16/20 08:15 Oxygen Delivery Method Room Air Weight: 167.376 kg Body Mass Index (BMI) 56.1 Physical Exam Narrative Const alert and no apparent distress General Appearance: cooperative and comfortable Nutritional Appearance: morbidly obese Resp normal respiratory effort Effort and Inspection: able to speak in complete sentences Extremity normal capillary refill and no calf tenderness General Extremity: edema bilateral lower extremity, no tenderness to palpation of joints or extremities and other findings Other Details: Capillary refill time less than 3 seconds noted to remaining digits ; Negative for clubbing or cyanosis Skin General Skin Exam: atrophy and dry skin Rashes: no rashes Wound Narrative: Ulceration to left lateral foot at fifth partial ray amputation The wound bed is 80% granular 20% fibrous without visualized bone. There is no malodor, purulence, erythema. There is some proximal periwound maceration noted. There is 1 area tunneling deep does not probe to bone. The adjacent skin is hairless and atrophic. DP and PT palpable. Bilateral lower extremity edema noted. Partial fifth ray amputation left foot. Compartments remain soft to palpate. Active range of motion digits 1, 2, 3, 4 left foot. Neuro Sensory Exam: extremities light-touch: absent Psych Appearance: appropriate Attitude: calm Debridement Note Debridement Note Post-Debridement Measurements and Additional Note: Post-Debridement Measurements/Treatment - Nurse 1 - General Ulcer Assessment Start: 12/16/20 08:08 Freq: Status: Active Protocol: [email or web address] Activity Type Activity Date Activity User E-Sign Co-Sign Detail Recorded Client Recorded Date Recorded By Document 12/16/20 08:15 [facility] [id number] 12/16/20 08:30 [facility] 12/16/20 08:15 - Today's Visit Information Type of service Initial Visit Arrival Mode Wheelchair Transfer Assistance Other Transfer Assist (Other) stand by x1 Patient Identification Verified (Name & Yes ) Patient Requires Transmission-Based No Precautions Height and Weight Height 5 ft 8 in Weight 167.376 kg Weight in Pounds 369.0 lbs Weight Measurement Method Stated by Patient Body Mass Index (BMI) 56.1 BMI Classification Obese BSA - Lizzeth 2.65 Vital Signs Temperature (97.8 F-99.1 F) 97.7 F L Temperature Source Temporal Pulse Rate (60-100) 96 Pulse Location Monitor Respiratory Rate (12-18) 24 H Respiratory rate source Observation Oxygen Delivery Method Room Air Blood Pressure (90/60-120/80) 151/79 H Blood Pressure Mean (mm Hg) 103 Source Monitor Position Sitting Blood Pressure Location Right Forearm History Since Last Visit- (Skip if this is Patient's initial visit) Left Footwear Surgical Shoe with pressure relief insole Right Footwear Regular Shoe Pain Scale: 0-10 Numeric Is Patient Pain Free? 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 Able to Read Yes Able to Write Yes Communication Tools None Right Hearing Abillity Normal Left Hearing Abillity Normal Visual Assistive Devices Glasses Teaching Assessment Preferences Verbal,Written, Audio/Visual, Demonstration Barriers to Learning None Readiness To Learn Excellent Willingness to Engage in Self Management High Activies Readiness to Engage in Self Management High Activities Anxiety Level Calm Cooperation Cooperative Perception Coherent Interest in Health Problem Asks Questions Education Importance Acknowledges Need Does Patient Smoke tobacco or other No substances Smoking Status Former smoker Is Patient Diabetic Yes Functional Assessment Recent Decline in Ability to Perform Ambulation, Transferring Culture/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 Cultural/Confucianist Needs that may affect No Treatment Plan Teaching: Wound Center *Welcome to the Wound Center -Person Taught Patient -Teaching Method Discussion -Response to teaching Verbalize understanding Welcome to the Wound Care Center [place] - Nurse 1 - General Ulcer Measurement Start: 12/16/20 08:08 Freq: Status: Active Protocol: Activity Type Activity Date Activity User E-Sign Co-Sign Detail Recorded Client Recorded Date Recorded By Document 12/16/20 08:15 [facility] [id number] 12/16/20 08:30 [facility] 12/16/20 08:15 Wound Center Nurse 1 #2- L LAT FOOT POST OP -Combined with other wound No -Current Size (cm) - Length 6 -Current Size (cm) - Width 3.2 -Current Size (cm) - Depth 0.8 -Total Square Cm 19.2 -Date of Last Picture (Recall this 12/16/20 field) -Photo Taken Yes -Epithelialization None Present -Tunneling No -Undermining/Tunneling No -Circular Undermining No -Exudate Amt Medium -Exudate Type Serosanguineous -Wound Margin Thickened -Granulation Amt Medium (34-66%) -Granulation Quality Red -Slough/Fibrin Yes -Necrosis Amt Medium (34-66%) -Necrotic Tissue Type Adherent Slough -Texture (Lesvia-wound Skin Appearance) Assessed, Scarring -Moisture (Lesvia-wound Skin Appearance) Assessed, Maceration,Dry/ Scaly -Color (Lesvia-wound Skin Appearance) Assessed,Palor -Temperature (Lesvia-wound Skin No Abnormality Appearance) (Pt Warm) -Tenderness on Palpation (Lesvia-wound No Skin Appearance) -Ulcer Cleansing SOAPY WATER -Foul Odor after Cleansing No -Anesthetic Used 4% Lidocaine Solution Lower Limb Edema Present Yes Right Calf (cm) 48.7 Right Ankle (cm) 30.6 Left Calf (cm) 52.2 Left Ankle (cm) 32.6 - Nurse 2 - General Ulcer CM Notes Start: 12/16/20 08:08 Freq: Status: Active Protocol: Activity Type Activity Date Activity User E-Sign Co-Sign Detail Recorded Client Recorded Date Recorded By Document 12/16/20 08:52 [id number] 12/16/20 08:56 12/16/20 08:52 Wound Center Nurse 2 #2- L LAT FOOT POST OP -Time 08:54 -Correct Patient Yes -Correct Side, Site, Position Yes -Correct Procedure Yes -Procedure Performed Yes -Type of Procedure Debridement -Clinical Debridement Muscle / Fascia -Tissue Removed Muscle -Post Debridement (cm) - Length 6.5 -Post Debridement (cm) - Width 3 -Post Debridement (cm) - Depth 1.5 -Total Square (Post) (cm) 19.5 -Area of Debridement (cm) - Length 6.5 -Area of Debridement (cm) - Width 3 -Total Square (Area) (cm) 19.5 -Tunneling No -Undermining/Tunneling No -Circular Undermining No -Wound/Ulcer Outcome Not Healed -Ulcer Cleansing Rinsed/ Irrigated with Saline -Foul Odor after Cleansing No -Bioengineered Tissue No -Bleeding Controlled with Pressure -Offloading Yes -Type of Offloading Surgical Shoe -Treatment Response Procedure Tolerated Well -Debridement - Subq, 1st 20sq cm No -Debridement - Muscle / Fascia, 1st Yes 20sq cm Pain Scale: 0-10 Numeric Is Patient Pain Free? Yes Wound debrided: Partial fifth ray amputation Laterality: Left Wound Grade/Stage: Tucker 3 Type of Debridement: Excisional debridement Anesthesia Used: 4% Lidocaine Solution Depth: to muscle Percentage of wound debrided: 100 Instrument Used: 3mm curette Tissue Removed: includes fibrous, devitalized, biofilm, callus and slough tissue Severity: Necrosis of Muscle Amount of bleeding with debridement: Mild Bleeding Controlled with: Pressure Patient tolerated procedure: Patient tolerated procedure well Assessment/Plan Assessment/Plan (1) Non-pressure 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: CODE(S): L97.523 - Non-pressure 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 (2) Osteomyelitis: CODE(S): M86.9 - Osteomyelitis, unspecified QUALIFIERS: Osteomyelitis type: other acute Osteomyelitis location: foot Laterality: left Qualified Code(s): M86.172 - Other acute osteomyelitis, left ankle and foot (3) Type 2 diabetes mellitus: CODE(S): E11.9 - Type 2 diabetes mellitus without complications QUALIFIERS: Diabetes mellitus mcfp insulin use: with national sales manager use Diabetes mellitus complication status: with neurologic complications Diabetes mellitus complication detail: with polyneuropathy Qualified Code(s): E11.42 - Type 2 diabetes mellitus with diabetic polyneuropathy; Z79.4 - alf (current) use of insulin (4) Bilateral leg edema: CODE(S): R60.0 - Localized edema (5) History of partial ray amputation of fifth toe of left foot: CODE(S): Z89.422 - Acquired absence of other left toe(s) (6) Morbid obesity: CODE(S): E66.01 - Morbid (severe) obesity due to excess calories PLAN: Patient seen and examined Patient presents with wound VAC present today there is some maceration noted to the proximal aspect of the wound. This was painted with Betadine and wound VAC was reapplied. Overall improvement noted. Patient still on antibiotics. After verbal consent was obtained patient had ulceration sharply debrided This patient is status post partial fifth ray amputation 12/04/[address] Colvin. Patient was discharged on oral Flagyl and Keflex for [address] King infectious disease. MRI obtained 12/04/2020 demonstrated osteomyelitis at the fifth metatarsal head and proximal phalanx base with a pathological fracture to the phalanx. This was prior to amputation. OR Wound bone cultures were to proximal margin fifth metatarsal are growing Streptococcus agalactiae. This is consistent with osteomyelitis LEAS 12/03/2020 showed triphasic pulses bilaterally DP and PT. Right MEENA is 1.06 and TBI 0.80. Left MEENA is 0.97 and TBI 0.88. This suggests adequate perfusion for healing. Venous studies showed no evidence of acute DVT to bilateral lower extremities with patent and compressible bilateral great saphenous veins. Discussed importance of smoking cessation, blood sugar control, weight management, offloading, proper nutrition, infection control and hygiene to optimize healing potential. Continue wound VAC therapy. This was reapplied today. All of his questions were answered. Follow-up in 1 week This note was generated with Spreedly dictation software. It may contain incorrect words, spelling, and punctuation that were not noted in checking the note before signing.
== END 2020-12-17 23:59 ==
LOC: WC 07:50
PROVIDERS: PCP Family Medicine; Visit Provider Podiatrist Foot & Ankle Surgery
DX: E11.621 Type 2 diabetes mellitus with foot ulcer (principal); L97.523 Non-pressure chronic ulcer of other part of left foot with necrosis of muscle; R60.0 Localized edema; E66.01 Morbid (severe) obesity due to excess calories; E11.69 Type 2 diabetes mellitus with other specified complication; M86.172 Other acute osteomyelitis, left ankle and foot; Z68.43 Body mass index [BMI] 50.0-59.9, adult
CPT/HCPCS: 11043; 97605; 99213; G0463

== ENCOUNTER 2021-01-13 09:15 | Outpatient (RCR) | payer MEDICARE, OTHER, SELFPAY ==
[2020-12-18 00:36] VITALS: BP 151/79; PULSE 96; RESP 24; TEMP 36.5
[2020-12-23 09:23] VITALS: BP 138/74; PULSE 90; RESP 16; TEMP 36.4; BMI 56.1
--- NOTE | 2020-12-23 11:16 | PCM.WC.PN ---
History of Present Illness Date of Service: 12/23/20 Chief Complaint: Left foot fifth ray resection amputation site History of Wound: Patient presents today status post partial fifth ray resection left foot. Patient has significant medical history of diabetes, osteomyelitis, morbid obesity, A. fib, edema, hypertension, hyperlipidemia, pickwickian syndrome. 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 Patient was discharged from hospital went to SNF facility. Patient discussed that she he might be discharged in the close future. Progress of Wound: Stable Subjective Subjective Patient seen and examined resting comfortably. Patient denies any new pedal complaints. Patient denies any nausea, fever, chills, chest pain, shortness of breath, cough, streaking, purulence, vomiting. Objective Data Objective Data Vital Signs: Vital Signs Temp Pulse Resp BP 97.6 F L 90 16 138/74 H 12/23/20 09:23 12/23/20 09:23 12/23/20 09:23 12/23/20 09:23 Oxygen Delivery Method Room Air Weight: 167.376 kg Body Mass Index (BMI) 56.1 Physical Exam Narrative Const alert and no apparent distress General Appearance: cooperative and comfortable Nutritional Appearance: morbidly obese Resp normal respiratory effort Effort and Inspection: able to speak in complete sentences Extremity normal capillary refill and no calf tenderness General Extremity: edema bilateral lower extremity, no tenderness to palpation of joints or extremities and other findings Other Details: Capillary refill time less than 3 seconds noted to remaining digits ; Negative for clubbing or cyanosis Skin General Skin Exam: atrophy and dry skin Rashes: no rashes Wound Narrative: Ulceration to left lateral foot at fifth partial ray amputation The wound bed is 90% granular 10% fibrous without visualized bone. There is no malodor, purulence, erythema. The proximal periwound maceration is resolved. There is 1 area tunneling deep does not probe to bone which is less deep. The adjacent skin is hairless and atrophic. DP and PT palpable. Bilateral lower extremity edema noted. Partial fifth ray amputation left foot. Compartments remain soft to palpate. Active range of motion digits 1, 2, 3, 4 left foot. Neuro Sensory Exam: extremities light-touch: absent Psych Appearance: appropriate Attitude: calm Debridement Note Debridement Note Post-Debridement Measurements and Additional Note: Post-Debridement Measurements/Treatment WC - Nurse 1 - General Ulcer Assessment Start: 12/23/20 09:23 Freq: Status: Active Protocol: [email or web address] Activity Type Activity Date Activity User E-Sign Co-Sign Detail Recorded Client Recorded Date Recorded By Document 12/23/20 09:23 [facility] [id number] 12/23/20 09:24 [facility] 12/23/20 09:23 - Today's Visit Information Type of service Follow-up Visit (Physician/TRANSPORTATION ANALYST ) Arrival Mode Wheelchair Transfer Assistance Other Transfer Assist (Other) stand by Patient Identification Verified (Name & Yes ) Patient Requires Transmission-Based No Precautions Height and Weight Body Mass Index (BMI) 56.1 BMI Classification Obese Vital Signs Temperature (97.8 F-99.1 F) 97.6 F L Temperature Source Temporal Pulse Rate (60-100) 90 Pulse Location Monitor Respiratory Rate (12-18) 16 Respiratory rate source Ventilator Oxygen Delivery Method Room Air Blood Pressure (90/60-120/80) 138/74 H Blood Pressure Mean (mm Hg) 95 Source Monitor Position Sitting Blood Pressure Location Left Forearm History Since Last Visit- (Skip if this is Patient's initial visit) Have you changed medications since your No last visit? Any new allergies or adverse reactions No Had a fall/change in ADL's that may No increase risk of falls Signs or symptoms of abuse and/or No neglect since last visit Have you been in the hospital since your No last visit? Has dressing in place as prescribed No Has compression in place as prescribed Yes Has offloadiing in place as prescribed Yes Experienced any changes in pain level or No management Left Footwear Surgical Shoe with pressure relief insole Right Footwear Diabetic Shoe Pain Scale: 0-10 Numeric Is Patient Pain Free? Yes - Nurse 1 - General Ulcer Measurement Start: 12/23/20 09:23 Freq: Status: Active Protocol: Activity Type Activity Date Activity User E-Sign Co-Sign Detail Recorded Client Recorded Date Recorded By Document 12/23/20 09:23 [facility] [id number] 12/23/20 09:24 [facility] 12/23/20 09:23 Wound Center Nurse 1 #2- L LAT FOOT POST OP -Combined with other wound No -Current Size (cm) - Length 6.3 -Current Size (cm) - Width 3 -Current Size (cm) - Depth 0.4 -Total Square Cm 18.9 -Photo Taken No -Epithelialization Small 1-33% -Tunneling No -Undermining/Tunneling No -Circular Undermining No -Exudate Amt Medium -Exudate Type Serosanguineous -Wound Margin Distinct, Outline Attached -Granulation Amt Medium (34-66%) -Granulation Quality Red -Slough/Fibrin Yes -Necrosis Amt Medium (34-66%) -Necrotic Tissue Type Adherent Slough -Texture (Lesvia-wound Skin Appearance) Assessed,Callus ,Scarring -Moisture (Lesvia-wound Skin Appearance) Assessed, Maceration,Dry/ Scaly -Color (Lesvia-wound Skin Appearance) Assessed,Palor -Temperature (Lesvia-wound Skin No Abnormality Appearance) (Pt Warm) -Tenderness on Palpation (Lesvia-wound No Skin Appearance) -Ulcer Cleansing soapy water -Foul Odor after Cleansing No -Anesthetic Used 4% Lidocaine Solution WC - Nurse 2 - General Ulcer CM Notes Start: 12/23/20 09:23 Freq: Status: Active Protocol: Activity Type Activity Date Activity User E-Sign Co-Sign Detail Recorded Client Recorded Date Recorded By Document 12/23/20 09:45 ÁNGEL [id number] 12/23/20 09:49 ÁNGEL 12/23/20 09:45 Wound Center Nurse 2 -Time 09:46 -Correct Patient Yes -Correct Side, Site, Position Yes -Correct Procedure Yes -Procedure Performed Yes -Type of Procedure Debridement -Clinical Debridement Subcutaneous -Tissue Removed Subcutaneous -Post Debridement (cm) - Length 4 -Post Debridement (cm) - Width 3.2 -Post Debridement (cm) - Depth 0.9 -Total Square (Post) (cm) 12.8 -Area of Debridement (cm) - Length 4 -Area of Debridement (cm) - Width 3.2 -Total Square (Area) (cm) 12.8 -Tunneling No -Undermining/Tunneling No -Circular Undermining No -Wound/Ulcer Outcome Not Healed -Ulcer Cleansing Rinsed/ Irrigated with Saline -Foul Odor after Cleansing No -Bioengineered Tissue No -Bleeding Controlled with Pressure -Offloading Yes -Type of Offloading Surgical Shoe -Treatment Response Procedure Tolerated Well -Debridement - Subq, 1st 20sq cm Yes Pain Scale: 0-10 Numeric Is Patient Pain Free? Yes BUDDY - Nurse 3 - General Ulcer D/C NN Start: 12/23/20 09:23 Freq: Status: Active Protocol: Activity Type Activity Date Activity User E-Sign Co-Sign Detail Recorded Client Recorded Date Recorded By Document 12/23/20 09:49 ÁNGEL [id number] 12/23/20 10:03 ÁNGEL 12/23/20 09:49 Wound Care Nurse 3 #2- L LAT FOOT POST OP -Ulcer Cleansing Rinsed/ Irrigated with Saline -Foul Odor after Cleansing No -Negative Pressure Wound Therapy Continue -Setting (mmHg) 150 -Negative Pressure is Continuous -NPWT Application Charge ($) NPWT </= 50 sq cm Pain Scale: 0-10 Numeric Is Patient Pain Free? Yes WC - Visit Discharge Discharge Condition Stable Ambulatory Status Wheelchair Transportation Private Auto Medication Reconcilliation completed & Yes provided to patient/care provider Clinical Summary of Care Provided Yes Wound debrided: Lateral foot Laterality: Left Wound Grade/Stage: Tucker 3 Type of Debridement: Excisional debridement Anesthesia Used: 4% Lidocaine Solution Depth: in the subcutaneous layer Percentage of wound debrided: 100 Instrument Used: 3mm curette Tissue Removed: includes fibrous, devitalized, biofilm, callus and slough tissue Severity: Fat Layer Exposed Amount of bleeding with debridement: Mild Bleeding Controlled with: Pressure Patient tolerated procedure: Patient tolerated procedure well Assessment/Plan Assessment/Plan (1) Osteomyelitis: CODE(S): M86.9 - Osteomyelitis, unspecified QUALIFIERS: Osteomyelitis type: other acute Osteomyelitis location: foot Laterality: left Qualified Code(s): M86.172 - Other acute osteomyelitis, left ankle and foot (2) Non-pressure 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: CODE(S): L97.523 - Non-pressure 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 (3) History of partial ray amputation of fifth toe of left foot: CODE(S): Z89.422 - Acquired absence of other left toe(s) (4) Type 2 diabetes mellitus: CODE(S): E11.9 - Type 2 diabetes mellitus without complications QUALIFIERS: Diabetes mellitus fdc insulin use: with superintendent marine oil terminal use Diabetes mellitus complication status: with neurologic complications Diabetes mellitus complication detail: with polyneuropathy Qualified Code(s): E11.42 - Type 2 diabetes mellitus with diabetic polyneuropathy; Z79.4 - custodial (current) use of insulin (5) Bilateral leg edema: CODE(S): R60.0 - Localized edema PLAN: Patient seen and examined Patient presents with wound VAC absent today. He relates that last night the wound VAC started alarming noted though blockage in the tubing. At that time staffing at his facility took off the wound VAC and placed a wet-to-dry dressing on it. Overall improvement noted. After verbal consent was obtained patient had ulceration sharply debrided This patient is status post partial fifth ray amputation 12/04/[address] Colvin. Patient was discharged on oral Flagyl and Keflex for [address] Mccarthy infectious disease. MRI obtained 12/04/2020 demonstrated osteomyelitis at the fifth metatarsal head and proximal phalanx base with a pathological fracture to the phalanx. This was prior to amputation. OR Wound bone cultures were to proximal margin fifth metatarsal are growing Streptococcus agalactiae. This is consistent with osteomyelitis LEAS 12/03/2020 showed triphasic pulses bilaterally DP and PT. Right MEENA is 1.06 and TBI 0.80. Left MEENA is 0.97 and TBI 0.88. This suggests adequate perfusion for healing. Venous studies showed no evidence of acute DVT to bilateral lower extremities with patent and compressible bilateral great saphenous veins. Discussed importance of smoking cessation, blood sugar control, weight management, offloading, proper nutrition, infection control and hygiene to optimize healing potential. Continue wound VAC therapy. This was reapplied today. This is to be changed 3 times a week. All of his questions were answered. Follow-up in 1 week This note was generated with [employer] dictation software. It may contain incorrect words, spelling, and punctuation that were not noted in checking the note before signing.
[2020-12-30 09:50] VITALS: BP 122/78; PULSE 98; RESP 22; TEMP 36.6; BMI 56.1
--- NOTE | 2020-12-30 10:43 | PCM.WC.PN ---
History of Present Illness Date of Service: 12/30/20 Chief Complaint: Left foot fifth ray resection amputation site History of Wound: Patient presents today status post partial fifth ray resection left foot. Patient has significant medical history of diabetes, osteomyelitis, morbid obesity, A. fib, edema, hypertension, hyperlipidemia, pickwickian syndrome. 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 Patient was discharged from hospital went to SNF facility. Patient discussed that she he might be discharged in the close future. Progress of Wound: Improved Subjective Subjective Patient seen and examined resting comfortably. Patient denies any new pedal complaints. Patient denies any nausea, fever, chills, chest pain, shortness of breath, cough, streaking, purulence, vomiting. Patient want to know when he can resume driving again Objective Data Objective Data Vital Signs: Vital Signs Temp Pulse Resp BP 97.8 F 98 22 H 122/78 H 12/30/20 09:50 12/30/20 09:50 12/30/20 09:50 12/30/20 09:50 Oxygen Delivery Method Room Air Weight: 167.376 kg Body Mass Index (BMI) 56.1 Physical Exam Narrative Const alert and no apparent distress General Appearance: cooperative and comfortable Nutritional Appearance: morbidly obese Resp normal respiratory effort Effort and Inspection: able to speak in complete sentences Extremity normal capillary refill and no calf tenderness General Extremity: edema bilateral lower extremity, no tenderness to palpation of joints or extremities and other findings Other Details: Capillary refill time less than 3 seconds noted to remaining digits ; Negative for clubbing or cyanosis Skin General Skin Exam: atrophy and dry skin Rashes: no rashes Wound Narrative: Ulceration to left lateral foot at fifth partial ray amputation The wound bed is granular without visualized bone with good amounts of granulation tissue. There is no malodor, purulence, erythema. The proximal periwound maceration is resolved. The adjacent skin is hairless and atrophic. Sutures to proximal aspect of wound were removed today with slight dehiscence noted to the incision site. DP and PT palpable. Bilateral lower extremity edema noted. Partial fifth ray amputation left foot. Compartments remain soft to palpate. Active range of motion digits 1, 2, 3, 4 left foot. Neuro Sensory Exam: extremities light-touch: absent Psych Appearance: appropriate Attitude: calm Debridement Note Debridement Note Post-Debridement Measurements and Additional Note: Post-Debridement Measurements/Treatment WC - Nurse 1 - General Ulcer Assessment Start: 12/23/20 09:23 Freq: Status: Active Protocol: MARGY Activity Type Activity Date Activity User E-Sign Co-Sign Detail Recorded Client Recorded Date Recorded By Document 12/23/20 09:23 [facility] [id number] 12/23/20 09:24 [facility] Document 12/30/20 09:50 DL [id number] 12/30/20 10:00 DL 12/23/20 12/30/20 09:23 09:50 WC - Today's Visit Information Type of service Follow-up Visit Follow-up Visit (Physician/BRANCH MANAGER (Physician/BRANCH MANAGER ) ) Arrival Mode Wheelchair Wheelchair Transfer Assistance Other Manual Transfer Assist (Other) stand by x1 Patient Identification Verified (Name & Yes ) Patient Requires Transmission-Based No No Precautions Finger Stick Blood Sugar(mg/dl) (if 207 indicated): Blood Sugar Stated by Patient Height and Weight Body Mass Index (BMI) 56.1 56.1 BMI Classification Obese Obese Vital Signs Temperature (97.8 F-99.1 F) 97.6 F L 97.8 F Temperature Source Temporal Temporal Pulse Rate (60-100) 90 98 Pulse Location Monitor Monitor Respiratory Rate (12-18) 16 22 H Respiratory rate source Ventilator Observation Oxygen Delivery Method Room Air Blood Pressure (90/60-120/80) 138/74 H 122/78 H Blood Pressure Mean (mm Hg) 95 92 Source Monitor Monitor Position Sitting Blood Pressure Location Left Forearm History Since Last Visit- (Skip if this is Patient's initial visit) Have you changed medications since your No No last visit? Any new allergies or adverse reactions No No Had a fall/change in ADL's that may No No increase risk of falls Signs or symptoms of abuse and/or No No neglect since last visit Have you been in the hospital since your No No last visit? Has dressing in place as prescribed No Yes Has compression in place as prescribed Yes N/A Has offloadiing in place as prescribed Yes Yes Experienced any changes in pain level or No No management Left Footwear Surgical Shoe Surgical Shoe with pressure with pressure relief insole relief insole Right Footwear Diabetic Shoe Pain Scale: 0-10 Numeric Is Patient Pain Free? Yes No BUDDY - Nurse 1 - General Ulcer Measurement Start: 12/23/20 09:23 Freq: Status: Active Protocol: Activity Type Activity Date Activity User E-Sign Co-Sign Detail Recorded Client Recorded Date Recorded By Document 12/23/20 09:23 BM [id number] 12/23/20 09:24 [facility] Document 12/30/20 09:50 DL [id number] 12/30/20 10:00 DL 12/23/20 12/30/20 09:23 09:50 Wound Center Nurse 1 #2- L LAT FOOT POST OP -Combined with other wound No -Current Size (cm) - Length 6.3 3 -Current Size (cm) - Width 3 2.4 -Current Size (cm) - Depth 0.4 0.9 -Total Square Cm 18.9 7.2 -Photo Taken No No -Epithelialization Small 1-33% -Tunneling No -Undermining/Tunneling No -Circular Undermining No -Exudate Amt Medium Medium -Exudate Type Serosanguineous Serosanguineous -Wound Margin Distinct, Distinct, Outline Outline Attached Attached -Granulation Amt Medium (34-66%) Large (67-100%) -Granulation Quality Red Red -Slough/Fibrin Yes -Necrosis Amt Medium (34-66%) Small (1-33%) -Necrotic Tissue Type Adherent Slough Adherent Slough -Texture (Lesvia-wound Skin Appearance) Assessed,Callus Localized Edema ,Scarring ,Scarring -Moisture (Lesvia-wound Skin Appearance) Assessed, Maceration Maceration,Dry/ Scaly -Color (Lesvia-wound Skin Appearance) Assessed,Palor No Abnormality -Temperature (Lesvia-wound Skin No Abnormality No Abnormality Appearance) (Pt Warm) (Pt Warm) -Tenderness on Palpation (Lesvia-wound No No Skin Appearance) -Ulcer Cleansing soapy water Wound Cleanser -Foul Odor after Cleansing No No -Anesthetic Used 4% Lidocaine 4% Lidocaine Solution Solution WC - Nurse 2 - General Ulcer CM Notes Start: 12/23/20 09:23 Freq: Status: Active Protocol: Activity Type Activity Date Activity User E-Sign Co-Sign Detail Recorded Client Recorded Date Recorded By Document 12/23/20 09:45 ÁGNEL [id number] 12/23/20 09:49 Document 12/30/20 10:20 MW [id number] 12/30/20 10:21 MW 12/23/20 12/30/20 09:45 10:20 Wound Center Nurse 2 #2- L LAT FOOT POST OP -Time 09:46 10:20 -Correct Patient Yes Yes -Correct Side, Site, Position Yes Yes -Correct Procedure Yes Yes -Procedure Performed Yes Yes -Type of Procedure Debridement Debridement -Clinical Debridement Subcutaneous Subcutaneous -Tissue Removed Subcutaneous Subcutaneous -Post Debridement (cm) - Length 4 3.0 -Post Debridement (cm) - Width 3.2 5.0 -Post Debridement (cm) - Depth 0.9 0.6 -Total Square (Post) (cm) 12.8 15.00 -Area of Debridement (cm) - Length 4 3.0 -Area of Debridement (cm) - Width 3.2 5.0 -Total Square (Area) (cm) 12.8 15.00 -Tunneling No No -Undermining/Tunneling No No -Circular Undermining No No -Wound/Ulcer Outcome Not Healed Not Healed -Ulcer Cleansing Rinsed/ Rinsed/ Irrigated with Irrigated with Saline Saline -Foul Odor after Cleansing No No -Bioengineered Tissue No No -Bleeding Controlled with Pressure Pressure -Offloading Yes No -Type of Offloading Surgical Shoe -Treatment Response Procedure Tolerated Well -Debridement - Subq, 1st 20sq cm Yes Yes Pain Scale: 0-10 Numeric Is Patient Pain Free? Yes Yes - Nurse 3 - General Ulcer D/C NN Start: 12/23/20 09:23 Freq: Status: Active Protocol: Activity Type Activity Date Activity User E-Sign Co-Sign Detail Recorded Client Recorded Date Recorded By Document 12/23/20 09:49 ÁNGEL [id number] 12/23/20 10:03 ÁNGEL 12/23/20 09:49 Wound Care Nurse 3 #2- L LAT FOOT POST OP -Ulcer Cleansing Rinsed/ Irrigated with Saline -Foul Odor after Cleansing No -Negative Pressure Wound Therapy Continue -Setting (mmHg) 150 -Negative Pressure is Continuous -NPWT Application Charge ($) NPWT </= 50 sq cm Pain Scale: 0-10 Numeric Is Patient Pain Free? Yes - Visit Discharge Discharge Condition Stable Ambulatory Status Wheelchair Transportation Private Auto Medication Reconcilliation completed & Yes provided to patient/care provider Clinical Summary of Care Provided Yes Wound debrided: Lateral foot Laterality: Left Wound Grade/Stage: Tucker 3 Type of Debridement: Excisional debridement Anesthesia Used: 4% Lidocaine Solution Depth: in the subcutaneous layer Percentage of wound debrided: 100 Instrument Used: 3mm curette Tissue Removed: includes fibrous, devitalized, biofilm, callus and slough tissue Severity: Fat Layer Exposed Amount of bleeding with debridement: Mild Bleeding Controlled with: Pressure Patient tolerated procedure: Patient tolerated procedure well Assessment/Plan Assessment/Plan (1) Osteomyelitis: CODE(S): M86.9 - Osteomyelitis, unspecified QUALIFIERS: Osteomyelitis type: other acute Osteomyelitis location: foot Laterality: left Qualified Code(s): M86.172 - Other acute osteomyelitis, left ankle and foot (2) Non-pressure 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: CODE(S): L97.523 - Non-pressure 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 (3) History of partial ray amputation of fifth toe of left foot: CODE(S): Z89.422 - Acquired absence of other left toe(s) (4) Type 2 diabetes mellitus: CODE(S): E11.9 - Type 2 diabetes mellitus without complications QUALIFIERS: Diabetes mellitus joint terminal attack controller insulin use: with joint terminal attack controller use Diabetes mellitus complication status: with neurologic complications Diabetes mellitus complication detail: with polyneuropathy Qualified Code(s): E11.42 - Type 2 diabetes mellitus with diabetic polyneuropathy; Z79.4 - halfway (current) use of insulin (5) Bilateral leg edema: CODE(S): R60.0 - Localized edema PLAN: Patient seen and examined Patient reports that he has had some new nurses he did not know that the wound VAC on at the facility. 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 Discussed that given it is his left foot that was injured and he has been driving that he could probably start doing a part-time and see how that goes. Discussed the importance of compression given that he will be in a dependent position for long period of time. 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 Discussed that best healing would be if he continues to rest completely but understand that patient needs to resume an income. After verbal consent was obtained patient had ulceration sharply debrided This patient is status post partial fifth ray amputation 12/04/[address] Colvin. Patient was discharged on oral Flagyl and Keflex for [address] Mccarthy infectious disease. He continues to take this MRI obtained 12/04/2020 demonstrated osteomyelitis at the fifth metatarsal head and proximal phalanx base with a pathological fracture to the phalanx. This was prior to amputation. OR Wound bone cultures were to proximal margin fifth metatarsal are growing Streptococcus agalactiae. This is consistent with osteomyelitis LEAS 12/03/2020 showed triphasic pulses bilaterally DP and PT. Right MEENA is 1.06 and TBI 0.80. Left MEENA is 0.97 and TBI 0.88. This suggests adequate perfusion for healing. Venous studies showed no evidence of acute DVT to bilateral lower extremities with patent and compressible bilateral great saphenous veins. Discussed importance of smoking cessation, blood sugar control, weight management, offloading, proper nutrition, infection control and hygiene to optimize healing potential. Continue wound VAC therapy. This was reapplied today. This is to be changed 3 times a week. Applied for TheraSkin graft today. All of his questions were answered. Follow-up in 2 week This note was generated with [employer] dictation software. It may contain incorrect words, spelling, and punctuation that were not noted in checking the note before signing.
[2021-01-13 09:24] VITALS: BP 152/91; PULSE 94; RESP 18; TEMP 36.4; BMI 56.1
--- NOTE | 2021-01-13 10:14 | PCM.WC.PN ---
History of Present Illness Date of Service: 01/13/21 Chief Complaint: Left foot fifth ray resection amputation site History of Wound: Patient presents today status post partial fifth ray resection left foot. Patient has significant medical history of diabetes, osteomyelitis, morbid obesity, A. fib, edema, hypertension, hyperlipidemia, pickwickian syndrome. 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 Patient was discharged from hospital went to SNF facility. Patient discussed that she he might be discharged in the close future. Progress of Wound: Improved Subjective Subjective Patient seen and examined resting comfortably. Patient denies any new pedal complaints. Patient denies any nausea, fever, chills, chest pain, shortness of breath, cough, streaking, purulence, vomiting. Objective Data Objective Data Vital Signs: Vital Signs Temp Pulse Resp BP 97.6 F L 94 18 152/91 H 01/13/21 09:24 01/13/21 09:24 01/13/21 09:24 01/13/21 09:24 Oxygen Delivery Method Room Air Weight: 167.376 kg Body Mass Index (BMI) 56.1 Physical Exam Narrative Const alert and no apparent distress General Appearance: cooperative and comfortable Nutritional Appearance: morbidly obese Resp normal respiratory effort Effort and Inspection: able to speak in complete sentences Extremity normal capillary refill and no calf tenderness General Extremity: edema bilateral lower extremity, no tenderness to palpation of joints or extremities and other findings Other Details: Capillary refill time less than 3 seconds noted to remaining digits ; Negative for clubbing or cyanosis Skin General Skin Exam: atrophy and dry skin Rashes: no rashes Wound Narrative: Ulceration to left lateral foot at fifth partial ray amputation The wound bed is granular without visualized bone with good amounts of granulation tissue. There is no malodor, purulence, erythema. The proximal periwound maceration is resolved. The adjacent skin is hairless and atrophic. DP and PT palpable. Lower extremity edema noted bilateral. Partial fifth ray amputation left foot. Compartments remain soft to palpate. Active range of motion digits 1, 2, 3, 4 left foot. Neuro Sensory Exam: extremities light-touch: absent Psych Appearance: appropriate Attitude: calm Debridement Note Debridement Note Post-Debridement Measurements and Additional Note: Post-Debridement Measurements/Treatment BUDDY - Nurse 1 - General Ulcer Assessment Start: 12/23/20 09:23 Freq: Status: Active Protocol: AWILDAEXT Activity Type Activity Date Activity User E-Sign Co-Sign Detail Recorded Client Recorded Date Recorded By Document 12/23/20 09:23 BM [id number] 12/23/20 09:24 BMF Document 12/30/20 09:50 DL [id number] 12/30/20 10:00 DL Document 01/13/21 09:24 MW [id number] 01/13/21 09:39 MW 12/23/20 12/30/20 01/13/21 09:23 09:50 09:24 WC - Today's Visit Information Type of service Follow-up Visit Follow-up Visit Follow-up Visit (Physician/GRAVURE PRESS SET UP OPERATOR (Physician/GRAVURE PRESS SET UP OPERATOR (Physician/GRAVURE PRESS SET UP OPERATOR ) ) ) Arrival Mode Wheelchair Wheelchair Wheelchair Transfer Assistance Other Manual None Transfer Assist (Other) stand by x1 Accompanied by self Patient Identification Verified (Name & Yes Yes ) Patient Requires Transmission-Based No No No Precautions Safety Precautions Fall Prevention Finger Stick Blood Sugar(mg/dl) (if 207 201 indicated): Blood Sugar Stated by Stated by Patient Patient Height and Weight Body Mass Index (BMI) 56.1 56.1 56.1 BMI Classification Obese Obese Obese Vital Signs Temperature (97.8 F-99.1 F) 97.6 F L 97.8 F 97.6 F L Temperature Source Temporal Temporal Temporal Pulse Rate (60-100) 90 98 94 Pulse Location Monitor Monitor Monitor Respiratory Rate (12-18) 16 22 H 18 Respiratory rate source Ventilator Observation Observation Oxygen Delivery Method Room Air Room Air Blood Pressure (90/60-120/80) 138/74 H 122/78 H 152/91 H Blood Pressure Mean (mm Hg) 95 92 111 Source Monitor Monitor Monitor Position Sitting Sitting Blood Pressure Location Left Forearm Left Arm History Since Last Visit- (Skip if this is Patient's initial visit) Have you changed medications since your No No No last visit? Any new allergies or adverse reactions No No No Had a fall/change in ADL's that may No No increase risk of falls Signs or symptoms of abuse and/or No No No neglect since last visit Have you been in the hospital since your No No No last visit? Has dressing in place as prescribed No Yes Yes Has compression in place as prescribed Yes N/A Yes Has offloadiing in place as prescribed Yes Yes N/A Experienced any changes in pain level or No No No management Left Footwear Surgical Shoe Surgical Shoe Surgical Shoe with pressure with pressure with pressure relief insole relief insole relief insole Right Footwear Diabetic Shoe Regular Shoe Pain Scale: 0-10 Numeric Is Patient Pain Free? Yes No Yes WC - Nurse 1 - General Ulcer Measurement Start: 12/23/20 09:23 Freq: Status: Active Protocol: Activity Type Activity Date Activity User E-Sign Co-Sign Detail Recorded Client Recorded Date Recorded By Document 12/23/20 09:23 BMF [id number] 12/23/20 09:24 BMF Document 12/30/20 09:50 DL [id number] 12/30/20 10:00 DL Document 01/13/21 09:24 MW [id number] 01/13/21 09:39 MW 12/23/20 12/30/20 01/13/21 09:23 09:50 09:24 Wound Center Nurse 1 #2- L LAT FOOT POST OP -Combined with other wound No No -Current Size (cm) - Length 6.3 3 2.5 -Current Size (cm) - Width 3 2.4 2.8 -Current Size (cm) - Depth 0.4 0.9 0.2 -Total Square Cm 18.9 7.2 7.00 -Photo Taken No No No -Epithelialization Small 1-33% None Present -Tunneling No No -Undermining/Tunneling No No -Circular Undermining No No -Exudate Amt Medium Medium Medium -Exudate Type Serosanguineous Serosanguineous Serosanguineous -Wound Margin Distinct, Distinct, Thickened Outline Outline Attached Attached -Granulation Amt Medium (34-66%) Large (67-100%) Large (67-100%) -Granulation Quality Red Red [place] -Slough/Fibrin Yes Yes -Necrosis Amt Medium (34-66%) Small (1-33%) Small (1-33%) -Necrotic Tissue Type Adherent Slough Adherent Slough Adherent Slough -Structure Exposed N/A -Texture (Lesvia-wound Skin Appearance) Assessed,Callus Localized Edema Assessed, ,Scarring ,Scarring Scarring -Moisture (Lesvia-wound Skin Appearance) Assessed, Maceration Assessed, Maceration,Dry/ Maceration Scaly -Color (Lesvia-wound Skin Appearance) Assessed,Palor No Abnormality No Abnormality, Assessed -Temperature (Lesvia-wound Skin No Abnormality No Abnormality No Abnormality Appearance) (Pt Warm) (Pt Warm) (Pt Warm) -Tenderness on Palpation (Lesvia-wound No No No Skin Appearance) -Ulcer Cleansing soapy water Wound Cleanser soap and water -Foul Odor after Cleansing No No No -Anesthetic Used 4% Lidocaine 4% Lidocaine 4% Lidocaine Solution Solution Solution Lower Limb Edema Present No Left Calf (cm) 47.5 Left Ankle (cm) 28.0 WC - Nurse 2 - General Ulcer CM Notes Start: 12/23/20 09:23 Freq: Status: Active Protocol: Activity Type Activity Date Activity User E-Sign Co-Sign Detail Recorded Client Recorded Date Recorded By Document 12/23/20 09:45 JF [id number] 12/23/20 09:49 JF Document 12/30/20 10:20 MW [id number] 12/30/20 10:21 MW Document 01/13/21 09:47 [id number] 01/13/21 09:55 12/23/20 12/30/20 01/13/21 09:45 10:20 09:47 Wound Center Nurse 2 #2- L LAT FOOT POST OP -Time 09:46 10:20 09:48 -Correct Patient Yes Yes Yes -Correct Side, Site, Position Yes Yes Yes -Correct Procedure Yes Yes Yes -Procedure Performed Yes Yes Yes -Type of Procedure Debridement Debridement Debridement -Clinical Debridement Subcutaneous Subcutaneous Subcutaneous -Tissue Removed Subcutaneous Subcutaneous Subcutaneous -Post Debridement (cm) - Length 4 3.0 3 -Post Debridement (cm) - Width 3.2 5.0 2 -Post Debridement (cm) - Depth 0.9 0.6 0.3 -Total Square (Post) (cm) 12.8 15.00 6 -Area of Debridement (cm) - Length 4 3.0 3 -Area of Debridement (cm) - Width 3.2 5.0 2 -Total Square (Area) (cm) 12.8 15.00 6 -Tunneling No No No -Undermining/Tunneling No No No -Circular Undermining No No No -Wound/Ulcer Outcome Not Healed Not Healed Not Healed -Ulcer Cleansing Rinsed/ Rinsed/ Rinsed/ Irrigated with Irrigated with Irrigated with Saline Saline Saline -Foul Odor after Cleansing No No No -Bioengineered Tissue No No Yes -Type of Bioengineered Tissue Theraskin -Expiration Date 07/17/24 -Product Lot Number [id number] -Percent Used 100 -Lot number of Saline Used [id number] -Bleeding Controlled with Pressure Pressure Pressure -Offloading Yes No Yes -Type of Offloading Surgical Shoe Surgical Shoe -Treatment Response Procedure Procedure Tolerated Well Tolerated Well -Debridement - Subq, 1st 20sq cm Yes Yes No -Apply Skin Sub - 1st 25 sq cm - Feet 1 -Theraskin (per sq cm) 6 Pain Scale: 0-10 Numeric Is Patient Pain Free? Yes Yes Yes - Nurse 3 - General Ulcer D/C NN Start: 12/23/20 09:23 Freq: Status: Active Protocol: Activity Type Activity Date Activity User E-Sign Co-Sign Detail Recorded Client Recorded Date Recorded By Document 12/23/20 09:49 [id number] 12/23/20 10:03 Document 12/30/20 10:55 [facility] [id number] 12/30/20 10:56 [facility] 12/23/20 12/30/20 09:49 10:55 Wound Care Nurse 3 #2- L LAT FOOT POST OP -Ulcer Cleansing Rinsed/ Rinsed/ Irrigated with Irrigated with Saline Saline -Foul Odor after Cleansing No No -Negative Pressure Wound Therapy Continue Continue -Setting (mmHg) 150 150 -Negative Pressure is Continuous Continuous -NPWT Application Charge ($) NPWT </= 50 sq NPWT </= 50 sq cm cm Left -Compression Wrap Matthew Wrap Treatment Response Procedure Tolerated Well Pain Scale: 0-10 Numeric Is Patient Pain Free? Yes Yes - Visit Discharge Discharge Condition Stable Stable Ambulatory Status Wheelchair Wheelchair Transportation Private Auto Medication Reconcilliation completed & Yes provided to patient/care provider Clinical Summary of Care Provided Yes Facility Type [facility] Care Facility Wound debrided: Lateral foot at amputation site Laterality: Left Wound Grade/Stage: Tucker 3 Type of Debridement: Excisional debridement Anesthesia Used: 4% Lidocaine Solution Depth: in the subcutaneous layer Percentage of wound debrided: 100 Instrument Used: 3mm curette Tissue Removed: includes fibrous, devitalized, biofilm, callus and slough tissue Severity: Fat Layer Exposed Amount of bleeding with debridement: Mild Bleeding Controlled with: Pressure Patient tolerated procedure: Patient tolerated procedure well Assessment/Plan Assessment/Plan (1) Osteomyelitis: CODE(S): M86.9 - Osteomyelitis, unspecified QUALIFIERS: Osteomyelitis type: other acute Osteomyelitis location: foot Laterality: left Qualified Code(s): M86.172 - Other acute osteomyelitis, left ankle and foot (2) Non-pressure 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: CODE(S): L97.523 - Non-pressure 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 (3) History of partial ray amputation of fifth toe of left foot: CODE(S): Z89.422 - Acquired absence of other left toe(s) (4) Type 2 diabetes mellitus: CODE(S): E11.9 - Type 2 diabetes mellitus without complications QUALIFIERS: Diabetes mellitus kosher inspector insulin use: with alf use Diabetes mellitus complication status: with neurologic complications Diabetes mellitus complication detail: with polyneuropathy Qualified Code(s): E11.42 - Type 2 diabetes mellitus with diabetic polyneuropathy; Z79.4 - user interface developer (current) use of insulin (5) Bilateral leg edema: CODE(S): R60.0 - Localized edema PLAN: Patient seen and examined Patient states that the assisted living facility. He has had no issues with the wound VAC since last appointment. He has no new pedal complaints. He wants to know when he would be able to leave the nursing facility. From a wound care standpoint I am okay with him being discharged with patient continue his regular appointments and offloading surgical shoe. After verbal consent was obtained patient had ulceration sharply debrided This patient is status post partial fifth ray amputation 12/04/[address] Colvin. Patient was discharged on oral Flagyl and Keflex for [address] Mccarthy infectious disease. MRI obtained 12/04/2020 demonstrated osteomyelitis at the fifth metatarsal head and proximal phalanx base with a pathological fracture to the phalanx. This was prior to amputation. OR Wound bone cultures were to proximal margin fifth metatarsal are growing Streptococcus agalactiae. This is consistent with osteomyelitis LEAS 12/03/2020 showed triphasic pulses bilaterally DP and PT. Right MEENA is 1.06 and TBI 0.80. Left MEENA is 0.97 and TBI 0.88. This suggests adequate perfusion for healing. Venous studies showed no evidence of acute DVT to bilateral lower extremities with patent and compressible bilateral great saphenous veins. Discussed importance of smoking cessation, blood sugar control, weight management, offloading, proper nutrition, infection control and hygiene to optimize healing potential. Continue wound VAC therapy. This was reapplied today. This is to be changed 3 times a week. Patient was approved for TheraSkin graft. I recommend application of advanced wound healing product to the indicated ulceration. Prior authorization was confirmed. The indications, benefits, anticipated application and healing time management were reviewed in detail. Verbal consent was obtained in the procedure for today. Site was debrided and graft was applied according to standard protocol and was further secured with a nonadherent dressing and Steri-Strips. Patient instructed that they can change outer dressing but not to go beneath the Steri-Strips. Patient to leave in her dressing intact and can change outer dressing as needed. Patient is to keep foot dry. Okay to DC the wound VAC. All of his questions were answered. Follow-up in 1 week This note was generated with SHADOW dictation software. It may contain incorrect words, spelling, and punctuation that were not noted in checking the note before signing.
== END 2021-01-17 23:59 ==
LOC: WC 09:15
PROVIDERS: PCP Family Medicine; Visit Provider Podiatrist Foot & Ankle Surgery
DX: E11.621 Type 2 diabetes mellitus with foot ulcer (principal); L97.523 Non-pressure chronic ulcer of other part of left foot with necrosis of muscle; M86.172 Other acute osteomyelitis, left ankle and foot; Z89.422 Acquired absence of other left toe(s); E11.42 Type 2 diabetes mellitus with diabetic polyneuropathy; R60.0 Localized edema; Z79.4 Long term (current) use of insulin; E11.52 Type 2 diabetes mellitus with diabetic peripheral angiopathy with gangrene; E78.5 Hyperlipidemia, unspecified; I10 Essential (primary) hypertension; I48.91 Unspecified atrial fibrillation; E66.01 Morbid (severe) obesity due to excess calories; E11.69 Type 2 diabetes mellitus with other specified complication; Z68.43 Body mass index [BMI] 50.0-59.9, adult
CPT/HCPCS: 11042; 15275; 97605; Q4121

== ENCOUNTER → 2021-02-17 08:59 | Outpatient (CLI) | payer MEDICARE, OTHER, SELFPAY ==
[2021-02-17 10:19] LABS: Absolute Lymphocyte Count 2.11 X10^3/uL (0.83-4.51); Absolute Neutrophil Count 4.4 X10^3/uL (2.0-7.7); Basophil# 0.04 X10^3/uL; Basophil% 0.6 % (0-1); Eosinophil# 0.15 X10^3/uL; Eosinophils% 2.1 % (0-5); Hematocrit 40.6 % (40-54); Hemoglobin 12.7 g/dL (13.0-16.5); Lymphocyte # 2.11 X10^3/ul (0.83-4.51); Lymphocyte % 29.3 % (19-41); Mean Corp Hgb Conc 31.3 g/dL (32-36); Mean Corpuscular Hgb 26.1 pg (27.0-32.0); Mean Corpuscular Volume 83.4 fL (80-94); Mean Platelet Vol. 10.6 fl (6.2-12.0); Monocyte% 6.9 % (0-10); NRBC Flagged by Analyzer 0 % (0-5); Neutrophil # 4.39 X10^3/uL (2.7-7.7); Neutrophil % 60.8 % (47-70); Platelet Count 219 K/mm3 (150-450); RBC Distribution Width CV 13.6 % (11.6-14.6); RBC Distribution Width SD 41.5 fl (35.1-43.9); Red Blood Count 4.87 M/mm3 (4.6-6.2); White Blood Count 7.2 K/mm3 (4.4-11.0)
[2021-02-17 10:29] LABS: Hemoglobin A1c 8.3 % (3.8-5.6)
[2021-02-17 10:58] LABS: ALB/GLOB Ratio 0.7 RATIO (0.9-2.4); AST(SGOT) 17 U/L (15-37); Alanine Aminotransfer ALT/SGPT 28 U/L (16-61); Albumin, Serum 3.2 g/dL (3.2-5.0); Alkaline Phosphatase 102 U/L (45-117); Anion Gap 5 (5-15); BUN 13 mg/dL (7-18); BUN/Creat Ratio 19.1 RATIO (10-20); Calcium,Total 8.6 mg/dL (8.5-10.1); Chloride 102 mmol/L (98-107); Cholesterol 182 mg/dL (200); Creatinine, Serum 0.68 mg/dL (0.70-1.30); EST Glomerular Filtration Rate 123 mL/min (>60); Est Glom Filt Rate - Afr Amer 149 mL/min (>60); Globulin 4.5 g/dL (2.2-4.2); Glucose 308 mg/dL (74-106); High Density Lipoprotein 40 mg/dL; Magnesium 1.8 mg/dL (1.6-2.6); Potassium 4.1 mmol/L (3.5-5.1); Protein, Total 7.7 g/dL (6.4-8.2); Sodium Level 136 mmol/L (136-145); T4 Free Direct 1.15 ng/dL (0.76-1.46); Thyroid Stim Hormone (TSH) 1.32 uIU/mL (0.358-3.74); Triglycerides 230 mg/dL; Very Low Density Lipoprotein 46 mg/dL (5-40)
[2021-02-17 12:45] LABS: Microalbumin,Random Urine 72.8 mg/L (NO RANGE EST.); Microalbumin:Creatinine Ratio 190.1 mg/g CRE (<30 mg/g CRE)
[2021-02-19 09:53] LABS: Ferritin 20 ng/mL (26-388); Iron 51 ug/dL (65-175); Iron Binding Capacity,Total 338 ug/dL (250-450); PERCENT IRON SATURATION 15.1 % (15.0-55.0)
== END ==
PROVIDERS: PCP Family Medicine; Visit Provider Family Medicine
DX: E11.9 Type 2 diabetes mellitus without complications (principal); I48.91 Unspecified atrial fibrillation; E04.1 Nontoxic single thyroid nodule
CPT/HCPCS: 15275; 36415; 80053; 80061; 82043; 82570; 82728; 83036; 83540; 83550; 83735; 84439; 84443; 85025; Q4121

== ENCOUNTER 2021-02-17 10:30 | Outpatient (RCR) | payer MEDICARE, OTHER, SELFPAY ==
[2021-01-18 00:35] VITALS: BP 152/91; PULSE 94; RESP 18; TEMP 36.4
[2021-01-20 09:35] VITALS: BP 126/98; PULSE 101; RESP 24; TEMP 36.8; BMI 56.1
--- NOTE | 2021-01-20 13:16 | PN.PCM_ITS ---
History of Present Illness Date of Service: 01/20/21 Chief Complaint: Left foot fifth ray resection amputation site History of Wound: Patient presents today status post partial fifth ray resection left foot. Patient has significant medical history of diabetes, osteomyelitis, morbid obesity, A. fib, edema, hypertension, hyperlipidemia, pickwickian syndrome. 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 Patient was discharged from hospital went to SNF facility. Patient discussed that she he might be discharged in the close future. Patient is awaiting approval from physical therapy for discharge Progress of Wound: Improved Subjective Subjective Patient seen and examined resting comfortably. Patient denies any new pedal complaints. Patient denies any nausea, fever, chills, chest pain, shortness of breath, cough, streaking, purulence, vomiting. Patient relates he has been unable to perform standing for 5 minutes per physical therapy recommendations prior to discharge Objective Data Objective Data Vital Signs: Vital Signs Temp Pulse Resp BP 98.3 F 101 H 24 H 126/98 H 01/20/21 09:35 01/20/21 09:35 01/20/21 09:35 01/20/21 09:35 Weight: 167.376 kg Body Mass Index (BMI) 56.1 Physical Exam Narrative Const alert and no apparent distress General Appearance: cooperative and comfortable Nutritional Appearance: morbidly obese Resp normal respiratory effort Effort and Inspection: able to speak in complete sentences Extremity normal capillary refill and no calf tenderness General Extremity: edema bilateral lower extremity, no tenderness to palpation of joints or extremities and other findings Other Details: Capillary refill time less than 3 seconds noted to remaining digits ; Negative for clubbing or cyanosis Skin General Skin Exam: atrophy and dry skin Rashes: no rashes Wound Narrative: Ulceration to left lateral foot at fifth partial ray amputation The wound bed is granular without visualized bone with good amounts of granulation tissue. There is no malodor, purulence, erythema. The proximal periwound maceration is resolved. The adjacent skin is hairless and atrophic. DP and PT palpable. Lower extremity edema noted bilateral. Partial fifth ray amputation left foot. Compartments remain soft to palpate. Active range of motion digits 1, 2, 3, 4 left foot. Neuro Sensory Exam: extremities light-touch: absent Psych Appearance: appropriate Attitude: calm Debridement Note Debridement Note Post-Debridement Measurements and Additional Note: Post-Debridement Measurements/Treatment WC - Nurse 1 - General Ulcer Assessment Start: 01/20/21 09:35 Freq: Status: Active Protocol: [email or web address] Activity Type Activity Date Activity User E-Sign Co-Sign Detail Recorded Client Recorded Date Recorded By Document 01/20/21 09:35 CECI Desktop 01/20/21 09:44 DL 01/20/21 09:35 - Today's Visit Information Type of service Follow-up Visit (Physician/[employer] ) Arrival Mode Ambulatory Transfer Assistance None Patient Identification Verified (Name & Yes ) Patient Requires Transmission-Based No Precautions Finger Stick Blood Sugar(mg/dl) (if 231 indicated): Blood Sugar Stated by Patient Height and Weight Body Mass Index (BMI) 56.1 BMI Classification Obese Vital Signs Temperature (97.8 F-99.1 F) 98.3 F Temperature Source Temporal Pulse Rate (60-100) 101 H Respiratory Rate (12-18) 24 H Respiratory rate source Observation Blood Pressure (90/60-120/80) 126/98 H Blood Pressure Mean (mm Hg) 107 Source Monitor Comment Theraskin recheck today History Since Last Visit- (Skip if this is Patient's initial visit) Have you changed medications since your No last visit? Any new allergies or adverse reactions No Had a fall/change in ADL's that may No increase risk of falls Signs or symptoms of abuse and/or No neglect since last visit Have you been in the hospital since your No last visit? Has dressing in place as prescribed Yes Has compression in place as prescribed Yes Has offloadiing in place as prescribed Yes Experienced any changes in pain level or No management Left Footwear Surgical Shoe with pressure relief insole Right Footwear Regular Shoe Pain Scale: 0-10 Numeric Is Patient Pain Free? Yes - Nurse 1 - General Ulcer Measurement Start: 01/20/21 09:35 Freq: Status: Active Protocol: Activity Type Activity Date Activity User E-Sign Co-Sign Detail Recorded Client Recorded Date Recorded By Document 01/20/21 09:35 CECI Desktop 01/20/21 09:44 DL 01/20/21 09:35 Wound Center Nurse 1 #2- L LAT FOOT POST OP -Current Size (cm) - Length 0.1 -Current Size (cm) - Width 0.1 -Current Size (cm) - Depth 0.1 -Total Square Cm 0.01 -Photo Taken No -Exudate Amt Small -Exudate Type Serosanguineous -Texture (Lesvia-wound Skin Appearance) Scarring -Moisture (Lesvia-wound Skin Appearance) Dry/Scaly -Color (Lesvia-wound Skin Appearance) No Abnormality -Temperature (Lesvia-wound Skin No Abnormality Appearance) (Pt Warm) -Tenderness on Palpation (Lesvia-wound No Skin Appearance) -Ulcer Cleansing Theraskin recheck -Foul Odor after Cleansing No Left Calf (cm) 46 Left Ankle (cm) 26 WC - Nurse 2 - General Ulcer CM Notes Start: 01/20/21 09:35 Freq: Status: Active Protocol: Activity Type Activity Date Activity User E-Sign Co-Sign Detail Recorded Client Recorded Date Recorded By Document 01/20/21 10:07 ÁNGEL [id number] 01/20/21 10:10 ÁNGEL 01/20/21 10:07 Wound Center Nurse 2 #2- L LAT FOOT POST OP -Time 10:08 -Correct Patient Yes -Correct Side, Site, Position Yes -Correct Procedure Yes -Procedure Performed Yes -Type of Procedure Debridement -Clinical Debridement Subcutaneous -Tissue Removed Subcutaneous -Post Debridement (cm) - Length 2.1 -Post Debridement (cm) - Width 2 -Post Debridement (cm) - Depth 0.2 -Total Square (Post) (cm) 4.2 -Area of Debridement (cm) - Length 2.1 -Area of Debridement (cm) - Width 2 -Total Square (Area) (cm) 4.2 -Tunneling No -Undermining/Tunneling No -Circular Undermining No -Wound/Ulcer Outcome Not Healed -Ulcer Cleansing Wound Cleanser -Foul Odor after Cleansing No -Bioengineered Tissue Yes -Type of Bioengineered Tissue Theraskin -Expiration Date 07/22/24 -Product Lot Number [id number] -Percent Used 100 -Lot number of Saline Used [id number] -Bleeding Controlled with Pressure -Offloading Yes -Type of Offloading Surgical Shoe -Treatment Response Procedure Tolerated Well -Debridement - Subq, 1st 20sq cm No -Apply Skin Sub - 1st 25 sq cm - Feet 1 -Theraskin (per sq cm) 6 Pain Scale: 0-10 Numeric Is Patient Pain Free? Yes WC - Nurse 3 - General Ulcer D/C NN Start: 01/20/21 09:35 Freq: Status: Active Protocol: Activity Type Activity Date Activity User E-Sign Co-Sign Detail Recorded Client Recorded Date Recorded By Document 01/20/21 10:20 DL Desktop 01/20/21 10:21 DL 01/20/21 10:20 Wound Care Nurse 3 #2- L LAT FOOT POST OP -Foul Odor after Cleansing No -Other Dressing theraskin -Primary Dressing Covered/Secured with Dry Gauze & Roll Gauze, Secured with Tape Left -Other tubigrip Right -Other tubigrip Treatment Response Procedure Tolerated Well Pain Scale: 0-10 Numeric Is Patient Pain Free? Yes WC - Visit Discharge Discharge Condition Stable Ambulatory Status Ambulatory, Wheelchair Transportation Private Auto Wound debrided: Lateral foot at fifth ray amputation site Laterality: Left Wound Grade/Stage: Tucker 3 Type of Debridement: Excisional debridement Anesthesia Used: 4% Lidocaine Solution Depth: in the subcutaneous layer Percentage of wound debrided: 100 Instrument Used: 3mm curette Tissue Removed: includes fibrous, devitalized, biofilm, callus and slough tissue Severity: Fat Layer Exposed Amount of bleeding with debridement: Mild Bleeding Controlled with: Pressure Patient tolerated procedure: Patient tolerated procedure well Assessment/Plan Assessment/Plan (1) 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 layer exposed: CODE(S): L97.522 - Non-pressure chronic ulcer of other part of left foot with fat layer exposed (2) Osteomyelitis: CODE(S): M86.9 - Osteomyelitis, unspecified QUALIFIERS: Osteomyelitis type: other acute Osteomyelitis location: foot Laterality: left Qualified Code(s): M86.172 - Other acute osteo myelitis, left ankle and foot (3) Type 2 diabetes mellitus with diabetic polyneuropathy: CODE(S): E11.42 - Type 2 diabetes mellitus with diabetic polyneuropathy (4) Bilateral leg edema: CODE(S): R60.0 - Localized edema (5) Morbid obesity: CODE(S): E66.01 - Morbid (severe) obesity due to excess calories (6) 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 Patient's wound looks very healthy in appearance with a very nice healthy granular base Patient states that he is still at the assisted living facility as he has been unable to complete physical therapy requirements for discharge. He has had no issues with the wound VAC since last appointment. He has no new pedal complaints. After verbal consent was obtained patient had ulceration sharply debrided This patient is status post left partial fifth ray amputation 12/04/[address] Colvin. Patient was discharged on oral Flagyl and Keflex for [address] Mccarthy infectious disease. MRI obtained 12/04/2020 demonstrated osteomyelitis at the fifth metatarsal head and proximal phalanx base with a pathological fracture to the phalanx. This was prior to amputation. OR Wound bone cultures were to proximal margin fifth met atarsal are growing Streptococcus agalactiae. This is consistent with remaining osteomyelitis LEAS 12/03/2020 showed triphasic pulses bilaterally DP and PT. Right MEENA is 1.06 and TBI 0.80. Left MEENA is 0.97 and TBI 0.88. This suggests adequate perfusion for healing. Venous studies showed no evidence of acute DVT to bilateral lower extremities with patent and compressible bilateral great saphenous veins. Discussed importance of smoking cessation, blood sugar control, weight management, offloading, proper nutrition, infection control and hygiene to optimize healing potential. Patient was approved for TheraSkin graft. I recommend application of advanced wound healing product to the indicated ulceration. Prior authorization was confirmed. The indications, benefits, anticipated application and healing time management were reviewed in detail. Verbal consent was obtained in the procedure for today. Site was debrided and graft was applied according to standard protocol and was further secured with a nonadherent dressing and Steri-Strips. Patient instructed that they can change outer dressing but not to go beneath the Steri-Strips. Patient to leave outer dressing intact and can change outer dry sterile dressing as needed. Patient is to keep foot dry. Tubigrip was applied bilaterally. All of his questions were answered. Follow-up in 1 week This note was generated with [employer] software. It may contain incorrect words, spelling, and punctuation that were not noted in checking the note before signing.
[2021-01-27 09:27] VITALS: BP 135/83; PULSE 91; RESP 24; TEMP 36.9; BMI 56.1
--- NOTE | 2021-01-27 09:34 | PN.PCM_ITS ---
History of Present Illness Date of Service: 01/27/21 Chief Complaint: Left foot fifth ray resection amputation site History of Wound: Patient presents today status post partial fifth ray resection left foot. Patient has significant medical history of diabetes, osteomyelitis, morbid obesity, A. fib, edema, hypertension, hyperlipidemia, pickwickian syndrome. 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 Patient was discharged from hospital went to SNF facility. Patient discussed that she he might be discharged in the close future. Patient is awaiting approval from physical therapy for discharge Progress of Wound: Improved Subjective Subjective Patient seen and examined resting comfortably. Patient denies any new pedal complaints. Patient denies any nausea, fever, chills, chest pain, shortness of breath, cough, streaking, purulence, vomiting. Objective Data Objective Data Vital Signs: Vital Signs Temp Pulse Resp BP 98.3 F 101 H 24 H 126/98 H 01/20/21 09:35 01/20/21 09:35 01/20/21 09:35 01/20/21 09:35 Weight: 167.376 kg Body Mass Index (BMI) 56.1 Physical Exam Narrative Const alert and no apparent distress General Appearance: cooperative and comfortable Nutritional Appearance: morbidly obese Resp normal respiratory effort Effort and Inspection: able to speak in complete sentences Extremity normal capillary refill and no calf tenderness General Extremity: edema bilateral lower extremity, no tenderness to palpation of joints or extremities and other findings Other Details: Capillary refill time less than 3 seconds noted to remaining digits ; Negative for clubbing or cyanosis Skin General Skin Exam: atrophy and dry skin Rashes: no rashes Wound Narrative: Ulceration to left lateral foot at fifth partial ray amputation The wound bed is granular without visualized bone with good amounts of granulation tissue. There is no malodor, purulence, erythema. The adjacent skin is hairless and atrophic. DP and PT palpable. Lower extremity edema noted bilateral. Partial fifth ray amputation left foot. Compartments remain soft to palpate. Active range of motion digits 1, 2, 3, 4 left foot. Nails [id number] right and 1234 left elongated thickened discolored dystrophic elongated. Neuro Sensory Exam: extremities light-touch: absent Psych Appearance: appropriate Attitude: calm Debridement Note Debridement Note Post-Debridement Measurements and Additional Note: Post-Debridement Measurem ents/Treatment WC - Nurse 1 - General Ulcer Assessment Start: 01/20/21 09:35 Freq: Status: Active Protocol: MARGY Activity Type Activity Date Activity User E-Sign Co-Sign Detail Recorded Client Recorded Date Recorded By Document 01/20/21 09:35 CECI Desktop 01/20/21 09:44 DL 01/20/21 09:35 WC - Today's Visit Information Type of service Follow-up Visit (Physician/[employer]PER[employer] ) Arrival Mode Ambulatory Transfer Assistance None Patient Identification Verified (Name & Yes ) Patient Requires Transmission-Based No Precautions Finger Stick Blood Sugar(mg/dl) (if 231 indicated): Blood Sugar Stated by Patient Height and Weight Body Mass Index (BMI) 56.1 BMI Classification Obese Vital Signs Temperature (97.8 F-99.1 F) 98.3 F Temperature Source Temporal Pulse Rate (60-100) 101 H Respiratory Rate (12-18) 24 H Respiratory rate source Observation Blood Pressure (90/60-120/80) 126/98 H Blood Pressure Mean (mm Hg) 107 Source Monitor Comment Theraskin recheck today History Since Last Visit- (Skip if this is Patient's initial visit) Have you changed medications since your No last visit? Any new allergies or adverse reactions No Had a fall/change in ADL's that may No increase risk of falls Signs or symptoms of abuse and/or No neglect since last visit Have you been in the hospital since your No last visit? Has dressing in place as prescribed Yes Has compression in place as prescribed Yes Has offloadiing in place as prescribed Yes Experienced any changes in pain level or No management Left Footwear Surgical Shoe with pressure relief insole Right Footwear Regular Shoe Pain Scale: 0-10 Numeric Is Patient Pain Free? Yes - Nurse 1 - General Ulcer Measurement Start: 01/20/21 09:35 Freq: Status: Active Protocol: Activity Type Activity Date Activity User E-Sign Co-Sign Detail Recorded Client Recorded Date Recorded By Document 01/20/21 09:35 CECI Poseop 01/20/21 09:44 DL 01/20/21 09:35 Wound Center Nurse 1 #2- L LAT FOOT POST OP -Current Size (cm) - Length 0.1 -Current Size (cm) - Width 0.1 -Current Size (cm) - Depth 0.1 -Total Square Cm 0.01 -Photo Taken No -Exudate Amt Small -Exudate Type Serosanguineous -Texture (Lesvia-wound Skin Appearance) Scarring -Moisture (Lesvia-wound Skin Appearance) Dry/Scaly -Color (Lesvia-wound Skin Appearance) No Abnormality -Temperature (Lesvia-wound Skin No Abnormality Appearance) (Pt Warm) -Tenderness on Palpation (Lesvia-wound No Skin Appearance) -Ulcer Cleansing Theraskin recheck -Foul Odor after Cleansing No Left Calf (cm) 46 Left Ankle (cm) 26 WC - Nurse 2 - General Ulcer CM Notes Start: 01/20/21 09:35 Freq: Status: Active Protocol: Activity Type Activity Date Activity User E-Sign Co-Sign Detail Recorded Client Recorded Date Recorded By Document 01/20/21 10:07 ÁNGEL [id number] 01/20/21 10:10 ÁNGEL 01/20/21 10:07 Wound Center Nurse 2 #2- L LAT FOOT POST OP -Time 10:08 -Correct Patient Yes -Correct Side, Site, Position Yes -Correct Procedure Yes -Procedure Performed Yes -Type of Procedure Debridement -Clinical Debridement Subcutaneous -Tissue Removed Subcutaneous -Post Debridement (cm) - Length 2.1 -Post Debridement (cm) - Width 2 -Post Debridement (cm) - Depth 0.2 -Total Square (Post) (cm) 4.2 -Area of Debridement (cm) - Length 2.1 -Area of Debridement (cm) - Width 2 -Total Square (Area) (cm) 4.2 -Tunneling No -Undermining/Tunneling No -Circular Undermining No -Wound/Ulcer Outcome Not Healed -Ulcer Cleansing Wound Cleanser -Foul Odor after Cleansing No -Bioengineered Tissue Yes -Type of Bioengineered Tissue Theraskin -Expiration Date 07/22/24 -Product Lot Number [id number] -Percent Used 100 -Lot number of Saline Used [id number] -Bleeding Controlled with Pressure -Offloading Yes -Type of Offloading Surgical Shoe -Treatment Response Procedure Tolerated Well -Debridement - Subq, 1st 20sq cm No -Apply Skin Sub - 1st 25 sq cm - Feet 1 -Theraskin (per sq cm) 6 Pain Scale: 0-10 Numeric Is Patient Pain Free? Yes - Nurse 3 - General Ulcer D/C NN Start: 01/20/21 09:35 Freq: Status: Active Protocol: Activity Type Activity Date Activity User E-Sign Co-Sign Detail Recorded Client Recorded Date Recorded By Document 01/20/21 10:20 DL Desktop 01/20/21 10:21 DL 01/20/21 10:20 Wound Care Nurse 3 #2- L LAT FOOT POST OP -Foul Odor after Cleansing No -Other Dressing theraskin -Primary Dressing Covered/Secured with Dry Gauze & Roll Gauze, Secured with Tape Left -Other tubigrip Right -Other tubigrip Treatment Response Procedure Tolerated Well Pain Scale: 0-10 Numeric Is Patient Pain Free? Yes WC - Visit Discharge Discharge Condition Stable Ambulatory Status Ambulatory, Wheelchair Transportation Private Auto Wound debrided: Lateral foot Laterality: Left Wound Grade/Stage: Tucker 3 Type of Debridement: Excisional debridement Anesthesia Used: 4% Lidocaine Solution Depth: in the subcutaneous layer Percentage of wound debrided: 100 Instrument Used: 3mm curette Tissue Removed: includes fibrous, devitalized, biofilm, callus and slough tissue Severity: Fat Layer Exposed Amount of bleeding with debridement: Mild Bleeding Controlled with: Pressure Patient tolerated procedure: Patient tolerated procedure well Assessment/Plan Assessment/Plan (1) 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 layer exposed: CODE(S): L97.522 - Non-pressure chronic ulcer of other part of left foot with fat layer exposed (2) Osteomyelitis: CODE(S): M86.9 - Osteomyelitis, unspecified QUALIFIERS: Osteomyelitis type: other acute Osteomyelitis location: foot Laterality: left Qualified Code(s): M86.172 - Other acute osteomyelitis, left ankle and foot (3) Type 2 diabetes mellitus with diabetic polyneuropathy: CODE(S): E11.42 - Type 2 diabetes mellitus with diabetic polyneuropathy (4) Bilateral leg edema: CODE(S): R60.0 - Localized edema (5) Morbid obesity: CODE(S): E66.01 - Morbid (severe) obesity due to excess calories (6) 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 Patient's wound looks very healthy in appearance with a very nice healthy gran ular base. Patient relates that they are waiting for bariatric walker for him to be discharged from the facility. We will proceed with palliative care, as well as monitoring. Foot care and footgear has been discussed. Debrided/reduced bulk from 1234 bilateral and right fifth toenails, with a nail nipper and both length and thickness by angling nail nippers. This was done without incident. After verbal consent was obtained patient had ulceration sharply debrided This patient is status post left partial fifth ray amputation 12/04/[address] Colvin. LEAS 12/03/2020 showed triphasic pulses bilaterally DP and PT. Right MEENA is 1.06 and TBI 0.80. Left MEENA is 0.97 and TBI 0.88. This suggests adequate perfusion for healing. Venous studies showed no evidence of acute DVT to bilateral lower extremities with patent and compressible bilateral great saphenous veins. Discussed importance of smoking cessation, blood sugar control, weight management, offloading, proper nutrition, infection control and hygiene to optimize healing potential. Patient was approved for TheraSkin graft. I recommend application of advanced wound healing product to the indicated ulceration. Prior authorization was confirmed. The indications, benefits, anticipated application and healing time management were reviewed in detail. Verbal consent was obtained in the procedure for today. Site was debrided and graft was applied according to standard protocol and was further secured with a nonadherent dressing and Steri-Strips. Patient instructed that they can change outer dressing but not to go beneath the Steri-Strips. Patient to leave outer dressing intact and can change outer dry sterile dressing as needed. Patient is to keep foot dry. Tubigrip was applied bilaterally. All of his questions were answered. Follow-up in 1 week This note was generated with [employer] dictation software. It may contain incorrect words, spelling, and punctuation that were not noted in checking the note before signing.
[2021-02-03 09:47] VITALS: BP 163/96; PULSE 98; RESP 22; TEMP 36.5; BMI 56.1
--- NOTE | 2021-02-03 10:12 | PN.PCM_ITS ---
History of Present Illness Date of Service: 02/03/21 Chief Complaint: Left foot fifth ray resection amputation site History of Wound: Patient presents today status post partial fifth ray resection left foot. Patient has significant medical history of diabetes, osteomyelitis, morbid obesity, A. fib, edema, hypertension, hyperlipidemia, pickwickian syndrome. 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 Patient was discharged from hospital went to SNF facility. Patient discussed that she he might be discharged in the close future. Patient is awaiting approval from physical therapy for discharge Progress of Wound: Improved Subjective Subjective Patient seen and examined resting comfortably. Patient denies any new pedal complaints. Patient denies any nausea, fever, chills, chest pain, shortness of breath, cough, streaking, purulence, vomiting. Objective Data Objective Data Vital Signs: Vital Signs Temp Pulse Resp BP 97.7 F L 98 22 H 163/96 H 02/03/21 09:47 02/03/21 09:47 02/03/21 09:47 02/03/21 09:47 Weight: 167.376 kg Body Mass Index (BMI) 56.1 Physical Exam Narrative Const alert and no apparent distress General Appearance: cooperative and comfortable Nutritional Appearance: morbidly obese Resp normal respiratory effort Effort and Inspection: able to speak in complete sentences Extremity normal capillary refill and no calf tenderness General Extremity: edema bilateral lower extremity with some improvement noted, no tenderness to palpation of joints or extremities and other findings Other Details: Capillary refill time less than 3 seconds noted to remaining digits ; Negative for clubbing or cyanosis Skin General Skin Exam: atrophy and dry skin Rashes: no rashes Wound Narrative: Ulceration to left lateral foot at fifth partial ray amputation The wound bed is granular without visualized bone with good amounts of granulation tissue. There is no malodor, purulence, erythema. The adjacent skin is hairless and atrophic. Wound has improved DP and PT palpable. Lower extremity edema noted bilateral. Partial fifth ray amputation left foot. Compartments remain soft to palpate. Active range of motion digits 1, 2, 3, 4 left foot. Neuro Sensory Exam: extremities light-touch: absent Psych Appearance: appropriate Attitude: calm Debridement Note Debridement Note Post-Debridement Measurements and Additional Note: Post-Debridement Measurements/Treatment BUDDY - Nurse 1 - General Ulcer Assessment Start: 01/20/21 09:35 Freq: Status: Active Protocol: WC.LOWEXT Activity Type Activity Date Activity User E-Sign Co-Sign Detail Recorded Client Recorded Date Recorded By Document 01/20/21 09:35 DL Desktop 01/20/21 09:44 DL Document 01/27/21 09:27 DL [id number] 01/27/21 09:35 DL Document 02/03/21 09:47 JF [id number] 02/03/21 09:49 JF 01/20/21 01/27/21 02/03/21 09:35 09:27 09:47 WC - Today's Visit Information Type of service Follow-up Visit Follow-up Visit Follow-up Visit (Physician/HEALTHCARE ECONOMICS MANAGER (Physician/HEALTHCARE ECONOMICS MANAGER (Physician/HEALTHCARE ECONOMICS MANAGER ) ) ) Arrival Mode Ambulatory Ambulatory, Ambulatory,Cane Walker Transfer Assistance None None Patient Identification Verified (Name & Yes Yes ) Patient Requires Transmission-Based No No No Precautions Finger Stick Blood Sugar(mg/dl) (if 231 208 indicated): Blood Sugar Stated by Stated by Patient Patient Height and Weight Body Mass Index (BMI) 56.1 56.1 56.1 BMI Classification Obese Obese Obese Vital Signs Temperature (97.8 F-99.1 F) 98.3 F 98.4 F 97.7 F L Temperature Source Temporal Temporal Temporal Pulse Rate (60-100) 101 H 91 98 Pulse Location Monitor Monitor Respiratory Rate (12-18) 24 H 24 H 22 H Respiratory rate source Observation Observation Blood Pressure (90/60-120/80) 126/98 H 135/83 H 163/96 H Blood Pressure Mean (mm Hg) 107 100 118 Source Monitor Monitor Monitor Position Semi-Fowlers Blood Pressure Location Right Arm Comment Theraskin recheck today History Since Last Visit- (Skip if this is Patient's initial visit) Have you changed medications since your No No No last visit? Any new allergies or adverse reactions No No No Had a fall/change in ADL's that may No No No increase risk of falls Signs or symptoms of abuse and/or No No No neglect since last visit Have you been in the hospital since your No No No last visit? Has dressing in place as prescribed Yes Yes Yes Has compression in place as prescribed Yes Yes Yes Has offloadiing in place as prescribed Yes Yes Yes Experienced any changes in pain level or No No No management Left Footwear Surgical Shoe Surgical Shoe Wedge Shoe with pressure with pressure relief insole relief insole Right Footwear Regular Shoe Regular Shoe Regular Shoe Pain Scale: 0-10 Numeric Is Patient Pain Free? Yes Yes Yes WC - Nurse 1 - General Ulcer Measurement Start: 01/20/21 09:35 Freq: Status: Active Protocol: Activity Type Activity Date Activity User E-Sign Co-Sign Detail Recorded Client Recorded Date Recorded By Document 01/20/21 09:35 DL Desktop 01/20/21 09:44 DL Document 01/27/21 09:27 DL [id number] 01/27/21 09:35 DL Document 02/03/21 09:47 JF [id number] 02/03/21 09:49 JF 01/20/21 01/27/21 02/03/21 09:35 09:27 09:47 Wound Center Nurse 1 #2- L LAT FOOT POST OP -Combined with other wound No -Current Size (cm) - Length 0.1 0.1 1.9 -Current Size (cm) - Width 0.1 0.1 1.6 -Current Size (cm) - Depth 0.1 0.1 0.1 -Total Square Cm 0.01 0.01 3.04 -Photo Taken No No No -Epithelialization Small 1-33% -Tunneling No -Undermining/Tunneling No -Circular Undermining No -Exudate Amt Small Small Small -Exudate Type Serosanguineous Serosanguineous Serosanguineous -Wound Margin Distinct, Flat & Intact Outline Attached -Granulation Amt Medium (34-66%) Medium (34-66%) -Granulation Quality Red Toone -Slough/Fibrin Yes -Necrosis Amt Medium (34-66%) Small (1-33%) -Necrotic Tissue Type Eschar Adherent Slough -Structure Exposed N/A Fat Layer Exposed -Texture (Lesvia-wound Skin Appearance) Scarring Scarring Assessed, Localized Edema -Moisture (Lesvia-wound Skin Appearance) Dry/Scaly Dry/Scaly Assessed,Dry/ Scaly -Color (Lesvia-wound Skin Appearance) No Abnormality Hemosiderin Assessed Staining -Temperature (Lesvia-wound Skin No Abnormality No Abnormality No Abnormality Appearance) (Pt Warm) (Pt Warm) (Pt Warm) -Tenderness on Palpation (Lesvia-wound No No No Skin Appearance) -Ulcer Cleansing Theraskin Leg only Wound Cleanser recheck -Foul Odor after Cleansing No No Yes, Due to Product Use -Anesthetic Used 4% Lidocaine Solution Lower Limb Edema Present No Left Calf (cm) 46 46.5 Left Ankle (cm) 26 31.3 WC - Nurse 2 - General Ulcer CM Notes Start: 01/20/21 09:35 Freq: Status: Active Protocol: Activity Type Activity Date Activity User E-Sign Co-Sign Detail Recorded Client Recorded Date Recorded By Document 01/20/21 10:07 JF [id number] 01/20/21 10:10 JF Document 01/27/21 09:46 JF [id number] 01/27/21 09:48 JF Edit Result 01/27/21 09:46 JF (1) [id number] 01/29/21 13:58 PL Document 02/03/21 10:04 JF [id number] 02/03/21 10:09 JF (1) #2- L LAT FOOT POST OP - Apply Skin Sub - 1st 25 sq cm - Feet => 1 01/20/21 01/27/21 02/03/21 10:07 09:46 10:04 Wound Center Nurse 2 #2- L LAT FOOT POST OP -Time 10:08 09:46 10:07 -Correct Patient Yes Yes Yes -Correct Side, Site, Position Yes Yes Yes -Correct Procedure Yes Yes Yes -Procedure Performed Yes Yes Yes -Type of Procedure Debridement Debridement Debridement -Clinical Debridement Subcutaneous Subcutaneous Subcutaneous -Tissue Removed Subcutaneous Dermis Subcutaneous -Post Debridement (cm) - Length 2.1 1.8 1.7 -Post Debridement (cm) - Width 2 1.8 1.8 -Post Debridement (cm) - Depth 0.2 0.1 0.1 -Total Square (Post) (cm) 4.2 3.24 3.06 -Area of Debridement (cm) - Length 2.1 1.8 1.7 -Area of Debridement (cm) - Width 2 1.8 1.8 -Total Square (Area) (cm) 4.2 3.24 3.06 -Tunneling No No No -Undermining/Tunneling No No No -Circular Undermining No No No -Wound/Ulcer Outcome Not Healed Not Healed Not Healed -Ulcer Cleansing Wound Cleanser Rinsed/ Rinsed/ Irrigated with Irrigated with Saline Saline -Foul Odor after Cleansing No No No -Bioengineered Tissue Yes Yes Yes -Type of Bioengineered Tissue Theraskin Theraskin Theraskin -Expiration Date 07/22/24 05/28/25 07/18/24 -Product Lot Number [id number] -Percent Used 100 100 100 -Lot number of Saline Used [id number] -Bleeding Controlled with Pressure Pressure Pressure -Offloading Yes Yes Yes -Type of Offloading Surgical Shoe Surgical Shoe Wedge Shoe -Treatment Response Procedure Procedure Procedure Tolerated Well Tolerated Well Tolerated Well -Debridement - Subq, 1st 20sq cm No No No -Apply Skin Sub - 1st 25 sq cm - Feet 1 1 1 -Theraskin (per sq cm) 6 6 3 Pain Scale: 0-10 Numeric Is Patient Pain Free? Yes Yes Yes - Nurse 3 - General Ulcer D/C NN Start: 01/20/21 09:35 Freq: Status: Active Protocol: Activity Type Activity Date Activity User E-Sign Co-Sign Detail Recorded Client Recorded Date Recorded By Document 01/20/21 10:20 DL Desktop 01/20/21 10:21 DL Document 01/27/21 09:49 [id number] 01/27/21 09:50 Document 02/03/21 10:10 [id number] 02/03/21 10:11 01/20/21 01/27/21 02/03/21 10:20 09:49 10:10 Wound Care Nurse 3 #2- L LAT FOOT POST OP -Ulcer Cleansing Rinsed/ Rinsed/ Irrigated with Irrigated with Saline Saline -Foul Odor after Cleansing No No No -Other Dressing theraskin -Primary Dressing Covered/Secured with Dry Gauze & Dry Gauze & Dry Gauze & Roll Gauze, Roll Gauze, Roll Gauze, Secured with Secured with Secured with Tape Tape Tape Left -Tubular Bandage Double Layer -Size of Tubigrip Used Size D -Size D ($) 0 -Other tubigrip Right -Other tubigrip Treatment Response Procedure Tolerated Well Pain Scale: 0-10 Numeric Is Patient Pain Free? Yes Yes Yes - Visit Discharge Discharge Condition Stable Stable Stable Ambulatory Status Ambulatory, Ambulatory, Ambulatory,Cane Wheelchair Walker Transportation Private Auto Private Auto Private Auto Medication Reconcilliation completed & Yes Yes provided to patient/care provider Clinical Summary of Care Provided Yes Yes Wound debrided: Fifth ray amputation site ulceration Laterality: Left Wound Grade/Stage: Tucker 3 Type of Debridement: Excisional debridement Anesthesia Used: 4% Lidocaine Solution Depth: in the subcutaneous layer Percentage of wound debrided: 100 Instrument Used: 3mm curette Tissue Removed: includes fibrous, devitalized, biofilm, callus and slough tissue Severity: Fat Layer Exposed Amount of bleeding with debridement: Mild Bleeding Controlled with: Pressure Patient tolerated procedure: Patient tolerated procedure well Assessment/Plan Assessment/Plan (1) 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 layer exposed: CODE(S): L97.522 - Non-pressure chronic ulcer of other part of left foot with fat layer exposed (2) Osteomyelitis: CODE(S): M86.9 - Osteomyelitis, unspecified QUALIFIERS: Osteomyelitis type: other acute Osteomyelitis location: foot Laterality: left Qualified Code(s): M86.172 - Other acute osteomyelitis, left ankle and foot (3) Type 2 diabetes mellitus with diabetic polyneuropathy: CODE(S): E11.42 - Type 2 diabetes mellitus with diabetic polyneuropathy (4) Bilateral leg edema: CODE(S): R60.0 - Localized edema (5) Morbid obesity: CODE(S): E66.01 - Morbid (severe) obesity due to excess calories (6) 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 Patient's wound looks very healthy in appearance with a very nice healthy granular base. Patient has been discharged home. 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 He has been using a wedge forefoot offloading shoe and a cane during ambulation. Discussed expected course of treatment along with return to normal shoe gear. After verbal consent was obtained patient had ulceration sharply debrided This patient is status post left partial fifth ray amputation 12/04/[address] Colvin. LEAS 12/03/2020 showed triphasic pulses bilaterally DP and PT. Right MEENA is 1.06 and TBI 0.80. Left MEENA is 0.97 and TBI 0.88. This suggests adequate perfusion for healing. Venous studies showed no evidence of acute DVT to bilateral lower extremities with patent and compressible bilateral great saphenous veins. Discussed importance of smoking cessation, blood sugar control, weight management, offloading, proper nutrition, infection control and hygiene to optimize healing potential. Patient was approved for TheraSkin graft. I recommend application of advanced wound healing product to the indicated ulceration. Prior authorization was confirmed. The indications, benefits, anticipated application and healing time management were reviewed in detail. Verbal consent was obtained in the procedure for today. Site was debrided and graft was applied according to standard protocol and was further secured with a nonadherent dressing and Steri-Strips. Patient instructed that they can change outer dressing but not to go beneath the Steri-Strips. Patient to leave outer dressing intact and can change outer dry sterile dressing as needed. Patient is to keep foot dry. Tubigrip was applied bilaterally. All of his questions were answered. Follow-up in 1 week This note was generated with [employer] dictation software. It may contain incorrect words, spelling, and punctuation that were not noted in checking the note before signing.
[2021-02-10 10:19] VITALS: BP 162/85; PULSE 112; TEMP 36.8; BMI 56.1
--- NOTE | 2021-02-10 10:25 | PN.PCM_ITS ---
History of Present Illness Date of Service: 02/10/21 Chief Complaint: Left foot fifth ray resection amputation site History of Wound: Patient presents today status post partial fifth ray resection left foot. Patient has significant medical history of diabetes, osteomyelitis, morbid obesity, A. fib, edema, hypertension, hyperlipidemia, pickwickian syndrome. 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 Patient was discharged from hospital went to SNF facility and has since returned home. Patient continues care at the wound care center. Patient was approved for TheraSkin graft application. Progress of Wound: Improved Subjective Subjective Patient seen and examined resting comfortably. Patient denies any new pedal complaints. Patient denies any nausea, fever, chills, chest pain, shortness of breath, cough, streaking, purulence, vomiting. Objective Data Objective Data Vital Signs: Vital Signs Temp Pulse Resp BP 98.2 F 112 H 22 H 162/85 H 02/10/21 10:19 02/10/21 10:19 02/03/21 09:47 02/10/21 10:19 Weight: 167.376 kg Body Mass Index (BMI) 56.1 Physical Exam Narrative Const alert and no apparent distress General Appearance: cooperative and comfortable Nutritional Appearance: morbidly obese Resp normal respiratory effort Effort and Inspection: able to speak in complete sentences Extremity normal capillary refill and no calf tenderness General Extremity: edema bilateral lower extremity with some improvement noted, no tenderness to palpation of joints or extremities and other findings Other Details: Capillary refill time less than 3 seconds noted to remaining digits ; Negative for clubbing or cyanosis Skin General Skin Exam: atrophy and dry skin Rashes: no rashes Wound Narrative: Ulceration to left lateral foot at fifth partial ray amputation The wound bed is granular without visualized bone with good amounts of granulation tissue. There is no malodor, purulence, erythema. The adjacent skin is hairless and atrophic. Wound has improved DP and PT palpable. Lower extremity edema noted bilateral. Partial fifth ray amputation left foot. Compartments remain soft to palpate. Active range of motion digits 1, 2, 3, 4 left foot. Neuro Sensory Exam: extremities light-touch: absent Psych Appearance: appropriate Attitude: calm Debridement Note Debridement Note Post-Debridement Measurements and Additional Note: Post-Debridement Measurements/Treatment WC - Nurse 1 - General Ulcer Assessment Start: 01/20/21 09:35 Freq: Status: Active Protocol: WC.LOWEXT Activity Type Activity Date Activity User E-Sign Co-Sign Detail Recorded Client Recorded Date Recorded By Document 01/20/21 09:35 DL Desktop 01/20/21 09:44 DL Document 01/27/21 09:27 DL [id number] 01/27/21 09:35 DL Document 02/03/21 09:47 JF [id number] 02/03/21 09:49 JF Document 02/10/21 10:19 AK [id number] 02/10/21 10:22 AK 01/20/21 01/27/21 02/03/21 09:35 09:27 09:47 WC - Today's Visit Information Type of service Follow-up Visit Follow-up Visit Follow-up Visit (Physician/SALES AND SERVICE CONSULTANT (Physician/SALES AND SERVICE CONSULTANT (Physician/SALES AND SERVICE CONSULTANT ) ) ) Arrival Mode Ambulatory Ambulatory, Ambulatory,Cane Walker Transfer Assistance None None Patient Identification Verified (Name & Yes Yes ) Patient Requires Transmission-Based No No No Precautions Finger Stick Blood Sugar(mg/dl) (if 231 208 indicated): Blood Sugar Stated by Stated by Patient Patient Height and Weight Body Mass Index (BMI) 56.1 56.1 56.1 BMI Classification Obese Obese Obese Vital Signs Temperature (97.8 F-99.1 F) 98.3 F 98.4 F 97.7 F L Temperature Source Temporal Temporal Temporal Pulse Rate (60-100) 101 H 91 98 Pulse Location Monitor Monitor Respiratory Rate (12-18) 24 H 24 H 22 H Respiratory rate source Observation Observation Blood Pressure (90/60-120/80) 126/98 H 135/83 H 163/96 H Blood Pressure Mean (mm Hg) 107 100 118 Source Monitor Monitor Monitor Position Semi-Fowlers Blood Pressure Location Right Arm Comment Theraskin recheck today History Since Last Visit- (Skip if this is Patient's initial visit) Have you changed medications since your No No No last visit? Any new allergies or adverse reactions No No No Had a fall/change in ADL's that may No No No increase risk of falls Signs or symptoms of abuse and/or No No No neglect since last visit Have you been in the hospital since your No No No last visit? Has dressing in place as prescribed Yes Yes Yes Has compression in place as prescribed Yes Yes Yes Has offloadiing in place as prescribed Yes Yes Yes Experienced any changes in pain level or No No No management Left Footwear Surgical Shoe Surgical Shoe Wedge Shoe with pressure with pressure relief insole relief insole Right Footwear Regular Shoe Regular Shoe Regular Shoe Pain Scale: 0-10 Numeric Is Patient Pain Free? Yes Yes Yes 02/10/21 10:19 WC - Today's Visit Information Type of service Follow-up Visit (Physician/SALES AND SERVICE CONSULTANT ) Arrival Mode Transfer Assistance Patient Identification Verified (Name & Yes ) Patient Requires Transmission-Based Precautions Finger Stick Blood Sugar(mg/dl) (if indicated): Blood Sugar Height and Weight Body Mass Index (BMI) 56.1 BMI Classification Obese Vital Signs Temperature (97.8 F-99.1 F) 98.2 F Temperature Source Temporal Pulse Rate (60-100) 112 H Pulse Location Monitor Respiratory Rate (12-18) Respiratory rate source Blood Pressure (90/60-120/80) 162/85 H Blood Pressure Mean (mm Hg) 110 Source Monitor Position Blood Pressure Location Comment History Since Last Visit- (Skip if this is Patient's initial visit) Have you changed medications since your No last visit? Any new allergies or adverse reactions No Had a fall/change in ADL's that may No increase risk of falls Signs or symptoms of abuse and/or No neglect since last visit Have you been in the hospital since your No last visit? Has dressing in place as prescribed Yes Has compression in place as prescribed N/A Has offloadiing in place as prescribed Experienced any changes in pain level or management Left Footwear Regular Shoe Right Footwear Removable Cast Walker/Walking Boot Pain Scale: 0-10 Numeric Is Patient Pain Free? - Nurse 1 - General Ulcer Measurement Start: 01/20/21 09:35 Freq: Status: Active Protocol: Activity Type Activity Date Activity User E-Sign Co-Sign Detail Recorded Client Recorded Date Recorded By Document 01/20/21 09:35 DL Desktop 01/20/21 09:44 DL Document 01/27/21 09:27 DL [id number] 01/27/21 09:35 DL Document 02/03/21 09:47 JF [id number] 02/03/21 09:49 JF Document 02/10/21 10:19 AK [id number] 02/10/21 10:22 AK 01/20/21 01/27/21 02/03/21 09:35 09:27 09:47 Wound Center Nurse 1 #2- L LAT FOOT POST OP -Combined with other wound No -Current Size (cm) - Length 0.1 0.1 1.9 -Current Size (cm) - Width 0.1 0.1 1.6 -Current Size (cm) - Depth 0.1 0.1 0.1 -Total Square Cm 0.01 0.01 3.04 -Photo Taken No No No -Epithelialization Small 1-33% -Tunneling No -Undermining/Tunneling No -Circular Undermining No -Exudate Amt Small Small Small -Exudate Type Serosanguineous Serosanguineous Serosanguineous -Wound Margin Distinct, Flat & Intact Outline Attached -Granulation Amt Medium (34-66%) Medium (34-66%) -Granulation Quality [place] -Slough/Fibrin Yes -Necrosis Amt Medium (34-66%) Small (1-33%) -Necrotic Tissue Type Eschar Adherent Slough -Structure Exposed N/A Fat Layer Exposed -Texture (Lesvia-wound Skin Appearance) Scarring Scarring Assessed, Localized Edema -Moisture (Lesvia-wound Skin Appearance) Dry/Scaly Dry/Scaly Assessed,Dry/ Scaly -Color (Lesvia-wound Skin Appearance) No Abnormality Hemosiderin Assessed Staining -Temperature (Lesvia-wound Skin No Abnormality No Abnormality No Abnormality Appearance) (Pt Warm) (Pt Warm) (Pt Warm) -Tenderness on Palpation (Lesvia-wound No No No Skin Appearance) -Ulcer Cleansing Theraskin Leg only Wound Cleanser recheck -Foul Odor after Cleansing No No Yes, Due to Product Use -Anesthetic Used 4% Lidocaine Solution Lower Limb Edema Present No Left Calf (cm) 46 46.5 Left Ankle (cm) 26 31.3 02/10/21 10:19 Wound Center Nurse 1 #2- L LAT FOOT POST OP -Combined with other wound -Current Size (cm) - Length 1.6 -Current Size (cm) - Width 1.7 -Current Size (cm) - Depth 0.1 -Total Square Cm 2.72 -Photo Taken -Epithelialization -Tunneling -Undermining/Tunneling -Circular Undermining Yes -Exudate Amt -Exudate Type Serosanguineous -Wound Margin Thickened & Rolled Under -Granulation Amt Medium (34-66%) -Granulation Quality Red -Slough/Fibrin Yes -Necrosis Amt Large (67-100%) -Necrotic Tissue Type Adherent Slough -Structure Exposed -Texture (Lesvia-wound Skin Appearance) No Abnormality, Assessed -Moisture (Lesvia-wound Skin Appearance) No Abnormality, Assessed, Maceration,Dry/ Scaly -Color (Lesvia-wound Skin Appearance) Assessed -Temperature (Lesvia-wound Skin No Abnormality Appearance) (Pt Warm) -Tenderness on Palpation (Lesvia-wound Yes Skin Appearance) -Ulcer Cleansing Rinsed/ Irrigated with Saline -Foul Odor after Cleansing -Anesthetic Used 4% Lidocaine Solution Lower Limb Edema Present Left Calf (cm) Left Ankle (cm) WC - Nurse 2 - General Ulcer CM Notes Start: 01/20/21 09:35 Freq: Status: Active Protocol: Activity Type Activity Date Activity User E-Sign Co-Sign Detail Recorded Client Recorded Date Recorded By Document 01/20/21 10:07 JF [id number] 01/20/21 10:10 JF Document 01/27/21 09:46 JF [id number] 01/27/21 09:48 JF Edit Result 01/27/21 09:46 JF (1) [id number] 01/29/21 13:58 PL Document 02/03/21 10:04 JF [id number] 02/03/21 10:09 JF (1) #2- L LAT FOOT POST OP - Apply Skin Sub - 1st 25 sq cm - Feet => 1 01/20/21 01/27/21 02/03/21 10:07 09:46 10:04 Wound Center Nurse 2 #2- L LAT FOOT POST OP -Time 10:08 09:46 10:07 -Correct Patient Yes Yes Yes -Correct Side, Site, Position Yes Yes Yes -Correct Procedure Yes Yes Yes -Procedure Performed Yes Yes Yes -Type of Procedure Debridement Debridement Debridement -Clinical Debridement Subcutaneous Subcutaneous Subcutaneous -Tissue Removed Subcutaneous Dermis Subcutaneous -Post Debridement (cm) - Length 2.1 1.8 1.7 -Post Debridement (cm) - Width 2 1.8 1.8 -Post Debridement (cm) - Depth 0.2 0.1 0.1 -Total Square (Post) (cm) 4.2 3.24 3.06 -Area of Debridement (cm) - Length 2.1 1.8 1.7 -Area of Debridement (cm) - Width 2 1.8 1.8 -Total Square (Area) (cm) 4.2 3.24 3.06 -Tunneling No No No -Undermining/Tunneling No No No -Circular Undermining No No No -Wound/Ulcer Outcome Not Healed Not Healed Not Healed -Ulcer Cleansing Wound Cleanser Rinsed/ Rinsed/ Irrigated with Irrigated with Saline Saline -Foul Odor after Cleansing No No No -Bioengineered Tissue Yes Yes Yes -Type of Bioengineered Tissue Theraskin Theraskin Theraskin -Expiration Date 07/22/24 05/28/25 07/18/24 -Product Lot Number [id number] -Percent Used 100 100 100 -Lot number of Saline Used [id number] -Bleeding Controlled with Pressure Pressure Pressure -Offloading Yes Yes Yes -Type of Offloading Surgical Shoe Surgical Shoe Wedge Shoe -Treatment Response Procedure Procedure Procedure Tolerated Well Tolerated Well Tolerated Well -Debridement - Subq, 1st 20sq cm No No No -Apply Skin Sub - 1st 25 sq cm - Feet 1 1 1 -Theraskin (per sq cm) 6 6 3 Pain Scale: 0-10 Numeric Is Patient Pain Free? Yes Yes Yes - Nurse 3 - General Ulcer D/C NN Start: 01/20/21 09:35 Freq: Status: Active Protocol: Activity Type Activity Date Activity User E-Sign Co-Sign Detail Recorded Client Recorded Date Recorded By Document 01/20/21 10:20 DL Desktop 01/20/21 10:21 DL Document 01/27/21 09:49 [id number] 01/27/21 09:50 Document 02/03/21 10:10 [id number] 02/03/21 10:11 01/20/21 01/27/21 02/03/21 10:20 09:49 10:10 Wound Care Nurse 3 #2- L LAT FOOT POST OP -Ulcer Cleansing Rinsed/ Rinsed/ Irrigated with Irrigated with Saline Saline -Foul Odor after Cleansing No No No -Other Dressing theraskin -Primary Dressing Covered/Secured with Dry Gauze & Dry Gauze & Dry Gauze & Roll Gauze, Roll Gauze, Roll Gauze, Secured with Secured with Secured with Tape Tape Tape Left -Tubular Bandage Double Layer -Size of Tubigrip Used Size D -Size D ($) 0 -Other tubigrip Right -Other tubigrip Treatment Response Procedure Tolerated Well Pain Scale: 0-10 Numeric Is Patient Pain Free? Yes Yes Yes WC - Visit Discharge Discharge Condition Stable Stable Stable Ambulatory Status Ambulatory, Ambulatory, Ambulatory,Cane Wheelchair Walker Transportation Private Auto Private Auto Private Auto Medication Reconcilliation completed & Yes Yes provided to patient/care provider Clinical Summary of Care Provided Yes Yes Wound debrided: Lateral foot Laterality: Left Wound Grade/Stage: Tucker 3 Type of Debridement: Excisional debridement Anesthesia Used: 4% Lidocaine Solution Depth: in the subcutaneous layer Percentage of wound debrided: 100 Instrument Used: 3mm curette Tissue Removed: includes fibrous, devitalized, biofilm, callus and slough tissue Severity: Fat Layer Exposed Amount of bleeding with debridement: Mild Bleeding Controlled with: Pressure Patient tolerated procedure: Patient tolerated procedure well Assessment/Plan Assessment/Plan (1) 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 layer exposed: CODE(S): L97.522 - Non-pressure chronic ulcer of other part of left foot with fat layer exposed (2) Osteomyelitis: CODE(S): M86.9 - Osteomyelitis, unspecified QUALIFIERS: Osteomyelitis type: other acute Osteomyelitis location: foot Laterality: left Qualified Code(s): M86.172 - Other acute osteomyelitis, left ankle and foot (3) Type 2 diabetes mellitus with diabetic polyneuropathy: CODE(S): E11.42 - Type 2 diabetes mellitus with diabetic polyneuropathy (4) Bilateral leg edema: CODE(S): R60.0 - Localized edema (5) Morbid obesity: CODE(S): E66.01 - Morbid (severe) obesity due to excess calories (6) 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 Patient's wound looks very healthy in appearance with a very nice healthy granular base. Patient has been discharged home. 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 He has been using a wedge forefoot offloading shoe and a cane during ambulation. Discussed expected course of treatment along with return to normal shoe gear. After verbal consent was obtained patient had ulceration sharply debrided This patient is status post left partial fifth ray amputation 12/04/[address] Colvin. LEAS 12/03/2020 showed triphasic pulses bilaterally DP and PT. Right MEENA is 1.06 and TBI 0.80. Left MEENA is 0.97 and TBI 0.88. This suggests adequate perfusion for healing. Venous studies showed no evidence of acute DVT to bilateral lower extremities with patent and compressible bilateral great saphenous veins. Discussed importance of smoking cessation, blood sugar control, weight management, offloading, proper nutrition, infection control and hygiene to optimize healing potential. Patient was approved for TheraSkin graft. I recommend application of advanced wound healing product to the indicated ulceration. Prior authorization was confirmed. The indications, benefits, anticipated application and healing time management were reviewed in detail. Verbal consent was obtained in the procedure for today. Site was debrided and graft was applied according to standard protocol and was further secured with a nonadherent dressing and Steri-Strips. Patient instructed that they can change outer dressing but not to go beneath the Steri-Strips. Patient to leave outer dressing intact and can change outer dry sterile dressing as needed. Patient is to keep foot dry. Tubigrip was applied bilaterally. Discussed continuing Yossi supplementation that was begun at [facility] facility. Patient was given sample with information where to obtain more on his own. All questions were answered. All of his questions were answered. Follow-up in 1 week This note was generated with [email or web address] dictation software. It may contain incorrect words, spelling, and punctuation that were not noted in checking the note before signing.
[2021-02-17 10:37] VITALS: BP 156/87; PULSE 93; RESP 24; TEMP 36.3; BMI 56.1
--- NOTE | 2021-02-17 12:45 | PCM.WC.PN ---
History of Present Illness Date of Service: 02/17/21 Chief Complaint: Left foot fifth ray resection amputation site History of Wound: Patient presents today status post partial fifth ray resection left foot. Patient has significant medical history of diabetes, osteomyelitis, morbid obesity, A. fib, edema, hypertension, hyperlipidemia, pickwickian syndrome. 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 Patient was discharged from hospital went to SNF facility and has since returned home. Patient continues care at the wound care center. Patient was approved for TheraSkin graft application. Progress of Wound: Improved Subjective Subjective Patient seen and examined resting comfortably. Patient denies any new pedal complaints. Patient denies any nausea, fever, chills, chest pain, shortness of breath, cough, streaking, purulence, vomiting. Patient complains of neuropathy pain Objective Data Objective Data Vital Signs: Vital Signs Temp Pulse Resp BP 97.4 F L 93 24 H 156/87 H 02/17/21 10:37 02/17/21 10:37 02/17/21 10:37 02/17/21 10:37 Weight: 167.376 kg Body Mass Index (BMI) 56.1 Physical Exam Narrative Const alert and no apparent distress General Appearance: cooperative and comfortable Nutritional Appearance: morbidly obese Resp normal respiratory effort Effort and Inspection: able to speak in complete sentences Extremity normal capillary refill and no calf tenderness General Extremity: edema bilateral lower extremity with some improvement noted, no tenderness to palpation of joints or extremities and other findings Other Details: Capillary refill time less than 3 seconds noted to remaining digits ; Negative for clubbing or cyanosis Skin General Skin Exam: atrophy and dry skin Rashes: no rashes Wound Narrative: Ulceration to left lateral foot at fifth partial ray amputation The wound bed is granular without visualized bone with good amounts of granulation tissue. There is no malodor, purulence, erythema. The adjacent skin is hairless and atrophic. Wound has minimal periwound maceration noted DP and PT palpable. Lower extremity edema noted bilateral. Partial fifth ray amputation left foot. Compartments remain soft to palpate. Active range of motion digits 1, 2, 3, 4 left foot. Neuro Sensory Exam: extremities light-touch: absent Psych Appearance: appropriate Attitude: calm Debridement Note Debridement Note Post-Debridement Measurements and Additional Note: Post-Debridement Measurements/Treatment WC - Nurse 1 - General Ulcer Assessment Start: 01/20/21 09:35 Freq: Status: Active Protocol: WC.LOWEXT Activity Type Activity Date Activity User E-Sign Co-Sign Detail Recorded Client Recorded Date Recorded By Document 01/20/21 09:35 DL Desktop 01/20/21 09:44 DL Document 01/27/21 09:27 DL [id number] 01/27/21 09:35 DL Document 02/03/21 09:47 JF [id number] 02/03/21 09:49 JF Document 02/10/21 10:19 AK [id number] 02/10/21 10:22 AK Document 02/17/21 10:37 DL Desktop 02/17/21 10:48 DL 01/20/21 01/27/21 02/03/21 09:35 09:27 09:47 WC - Today's Visit Information Type of service Follow-up Visit Follow-up Visit Follow-up Visit (Physician/SUPERVISING LIBRARIAN (Physician/SUPERVISING LIBRARIAN (Physician/SUPERVISING LIBRARIAN ) ) ) Arrival Mode Ambulatory Ambulatory, Ambulatory,Cane Walker Transfer Assistance None None Patient Identification Verified (Name & Yes Yes ) Patient Requires Transmission-Based No No No Precautions Finger Stick Blood Sugar(mg/dl) (if 231 208 indicated): Blood Sugar Stated by Stated by Patient Patient Height and Weight Body Mass Index (BMI) 56.1 56.1 56.1 BMI Classification Obese Obese Obese Vital Signs Temperature (97.8 F-99.1 F) 98.3 F 98.4 F 97.7 F L Temperature Source Temporal Temporal Temporal Pulse Rate (60-100) 101 H 91 98 Pulse Location Monitor Monitor Respiratory Rate (12-18) 24 H 24 H 22 H Respiratory rate source Observation Observation Blood Pressure (90/60-120/80) 126/98 H 135/83 H 163/96 H Blood Pressure Mean (mm Hg) 107 100 118 Source Monitor Monitor Monitor Position Semi-Fowlers Blood Pressure Location Right Arm Comment Theraskin recheck today History Since Last Visit- (Skip if this is Patient's initial visit) Have you changed medications since your No No No last visit? Any new allergies or adverse reactions No No No Had a fall/change in ADL's that may No No No increase risk of falls Signs or symptoms of abuse and/or No No No neglect since last visit Have you been in the hospital since your No No No last visit? Has dressing in place as prescribed Yes Yes Yes Has compression in place as prescribed Yes Yes Yes Has offloadiing in place as prescribed Yes Yes Yes Experienced any changes in pain level or No No No management Left Footwear Surgical Shoe Surgical Shoe Wedge Shoe with pressure with pressure relief insole relief insole Right Footwear Regular Shoe Regular Shoe Regular Shoe Pain Scale: 0-10 Numeric Is Patient Pain Free? Yes Yes Yes 02/10/21 02/17/21 10:19 10:37 WC - Today's Visit Information Type of service Follow-up Visit Follow-up Visit (Physician/SUPERVISING LIBRARIAN (Physician/SUPERVISING LIBRARIAN ) ) Arrival Mode Ambulatory,Cane Transfer Assistance None Patient Identification Verified (Name & Yes Yes ) Patient Requires Transmission-Based No Precautions Finger Stick Blood Sugar(mg/dl) (if not checked indicated): Blood Sugar Stated by Patient Height and Weight Body Mass Index (BMI) 56.1 56.1 BMI Classification Obese Obese Vital Signs Temperature (97.8 F-99.1 F) 98.2 F 97.4 F L Temperature Source Temporal Temporal Pulse Rate (60-100) 112 H 93 Pulse Location Monitor Monitor Respiratory Rate (12-18) 24 H Respiratory rate source Observation Blood Pressure (90/60-120/80) 162/85 H 156/87 H Blood Pressure Mean (mm Hg) 110 110 Source Monitor Monitor Position Blood Pressure Location Comment History Since Last Visit- (Skip if this is Patient's initial visit) Have you changed medications since your No No last visit? Any new allergies or adverse reactions No No Had a fall/change in ADL's that may No No increase risk of falls Signs or symptoms of abuse and/or No No neglect since last visit Have you been in the hospital since your No No last visit? Has dressing in place as prescribed Yes Yes Has compression in place as prescribed N/A N/A Has offloadiing in place as prescribed Yes Experienced any changes in pain level or No management Left Footwear Regular Shoe Right Footwear Removable Cast Walker/Walking Boot Pain Scale: 0-10 Numeric Is Patient Pain Free? Yes - Nurse 1 - General Ulcer Measurement Start: 01/20/21 09:35 Freq: Status: Active Protocol: Activity Type Activity Date Activity User E-Sign Co-Sign Detail Recorded Client Recorded Date Recorded By Document 01/20/21 09:35 DL Desktop 08/03/21 09:44 DL Document 01/27/21 09:27 DL [id number] 01/27/21 09:35 DL Document 02/03/21 09:47 JF [id number] 02/03/21 09:49 JF Document 02/10/21 10:19 AK [id number] 02/10/21 10:22 AK Document 02/17/21 10:37 DL Desktop 02/17/21 10:48 DL 01/20/21 01/27/21 02/03/21 09:35 09:27 09:47 Wound Center Nurse 1 #2- L LAT FOOT POST OP -Combined with other wound No -Current Size (cm) - Length 0.1 0.1 1.9 -Current Size (cm) - Width 0.1 0.1 1.6 -Current Size (cm) - Depth 0.1 0.1 0.1 -Total Square Cm 0.01 0.01 3.04 -Photo Taken No No No -Epithelialization Small 1-33% -Tunneling No -Undermining/Tunneling No -Circular Undermining No -Exudate Amt Small Small Small -Exudate Type Serosanguineous Serosanguineous Serosanguineous -Wound Margin Distinct, Flat & Intact Outline Attached -Granulation Amt Medium (34-66%) Medium (34-66%) -Granulation Quality [place] -Slough/Fibrin Yes -Necrosis Amt Medium (34-66%) Small (1-33%) -Necrotic Tissue Type Eschar Adherent Slough -Structure Exposed N/A Fat Layer Exposed -Texture (Lesvia-wound Skin Appearance) Scarring Scarring Assessed, Localized Edema -Moisture (Lesvia-wound Skin Appearance) Dry/Scaly Dry/Scaly Assessed,Dry/ Scaly -Color (Lesvia-wound Skin Appearance) No Abnormality Hemosiderin Assessed Staining -Temperature (Lesvia-wound Skin No Abnormality No Abnormality No Abnormality Appearance) (Pt Warm) (Pt Warm) (Pt Warm) -Tenderness on Palpation (Lesvia-wound No No No Skin Appearance) -Ulcer Cleansing Theraskin Leg only Wound Cleanser recheck -Foul Odor after Cleansing No No Yes, Due to Product Use -Anesthetic Used 4% Lidocaine Solution Lower Limb Edema Present No Left Calf (cm) 46 46.5 Left Ankle (cm) 26 31.3 02/10/21 02/17/21 10:19 10:37 Wound Center Nurse 1 #2- L LAT FOOT POST OP -Combined with other wound -Current Size (cm) - Length 1.6 0.8 -Current Size (cm) - Width 1.7 1 -Current Size (cm) - Depth 0.1 0.1 -Total Square Cm 2.72 0.8 -Photo Taken No -Epithelialization -Tunneling -Undermining/Tunneling -Circular Undermining Yes -Exudate Amt Small -Exudate Type Serosanguineous Serosanguineous -Wound Margin Thickened & Thickened Rolled Under -Granulation Amt Medium (34-66%) Large (67-100%) -Granulation Quality [place] -Slough/Fibrin Yes -Necrosis Amt Large (67-100%) Small (1-33%) -Necrotic Tissue Type Adherent Slough Adherent Slough -Structure Exposed N/A -Texture (Lesvia-wound Skin Appearance) No Abnormality, Scarring Assessed -Moisture (Lesvia-wound Skin Appearance) No Abnormality, Maceration Assessed, Maceration,Dry/ Scaly -Color (Lesvia-wound Skin Appearance) Assessed No Abnormality -Temperature (Lesvia-wound Skin No Abnormality No Abnormality Appearance) (Pt Warm) (Pt Warm) -Tenderness on Palpation (Lesvia-wound Yes No Skin Appearance) -Ulcer Cleansing Rinsed/ Wound Cleanser Irrigated with Saline -Foul Odor after Cleansing No -Anesthetic Used 4% Lidocaine 4% Lidocaine Solution Solution Lower Limb Edema Present Left Calf (cm) 47.5 Left Ankle (cm) 30 WC - Nurse 2 - General Ulcer CM Notes Start: 01/20/21 09:35 Freq: Status: Active Protocol: Activity Type Activity Date Activity User E-Sign Co-Sign Detail Recorded Client Recorded Date Recorded By Document 01/20/21 10:07 JF [id number] 01/20/21 10:10 JF Document 01/27/21 09:46 JF [id number] 01/27/21 09:48 JF Edit Result 01/27/21 09:46 JF (1) [id number] 01/29/21 13:58 PL Document 02/03/21 10:04 JF [id number] 02/03/21 10:09 JF Document 02/10/21 10:30 JF [id number] 02/10/21 10:36 JF Document 02/17/21 11:18 JF [id number] 02/17/21 11:19 JF (1) #2- L LAT FOOT POST OP - Apply Skin Sub - 1st 25 sq cm - Feet => 1 01/20/21 01/27/21 02/03/21 10:07 09:46 10:04 Wound Center Nurse 2 #2- L LAT FOOT POST OP -Time 10:08 09:46 10:07 -Correct Patient Yes Yes Yes -Correct Side, Site, Position Yes Yes Yes -Correct Procedure Yes Yes Yes -Procedure Performed Yes Yes Yes -Type of Procedure Debridement Debridement Debridement -Clinical Debridement Subcutaneous Subcutaneous Subcutaneous -Tissue Removed Subcutaneous Dermis Subcutaneous -Post Debridement (cm) - Length 2.1 1.8 1.7 -Post Debridement (cm) - Width 2 1.8 1.8 -Post Debridement (cm) - Depth 0.2 0.1 0.1 -Total Square (Post) (cm) 4.2 3.24 3.06 -Area of Debridement (cm) - Length 2.1 1.8 1.7 -Area of Debridement (cm) - Width 2 1.8 1.8 -Total Square (Area) (cm) 4.2 3.24 3.06 -Tunneling No No No -Undermining/Tunneling No No No -Circular Undermining No No No -Wound/Ulcer Outcome Not Healed Not Healed Not Healed -Ulcer Cleansing Wound Cleanser Rinsed/ Rinsed/ Irrigated with Irrigated with Saline Saline -Foul Odor after Cleansing No No No -Bioengineered Tissue Yes Yes Yes -Type of Bioengineered Tissue Theraskin Theraskin Theraskin -Expiration Date 07/22/24 05/28/25 07/18/24 -Product Lot Number [id number] -Percent Used 100 100 100 -Lot number of Saline Used [id number] -Bleeding Controlled with Pressure Pressure Pressure -Offloading Yes Yes Yes -Type of Offloading Surgical Shoe Surgical Shoe Wedge Shoe -Treatment Response Procedure Procedure Procedure Tolerated Well Tolerated Well Tolerated Well -Debridement - Subq, 1st 20sq cm No No No -Apply Skin Sub - 1st 25 sq cm - Feet 1 1 1 -Theraskin (per sq cm) 6 6 3 Pain Scale: 0-10 Numeric Is Patient Pain Free? Yes Yes Yes 02/10/21 02/17/21 10:30 11:18 Wound Center Nurse 2 #2- L LAT FOOT POST OP -Time 10:30 11:18 -Correct Patient Yes Yes -Correct Side, Site, Position Yes Yes -Correct Procedure Yes Yes -Procedure Performed Yes Yes -Type of Procedure Debridement Debridement -Clinical Debridement Subcutaneous Subcutaneous -Tissue Removed Subcutaneous Subcutaneous -Post Debridement (cm) - Length 1.4 0.7 -Post Debridement (cm) - Width 1.4 1.1 -Post Debridement (cm) - Depth 0.1 0.1 -Total Square (Post) (cm) 1.96 0.77 -Area of Debridement (cm) - Length 1.4 0.7 -Area of Debridement (cm) - Width 1.4 1.1 -Total Square (Area) (cm) 1.96 0.77 -Tunneling No No -Undermining/Tunneling No No -Circular Undermining No No -Wound/Ulcer Outcome Not Healed Not Healed -Ulcer Cleansing Rinsed/ Rinsed/ Irrigated with Irrigated with Saline Saline -Foul Odor after Cleansing No No -Bioengineered Tissue Yes Yes -Type of Bioengineered Tissue Theraskin Theraskin -Expiration Date 07/18/24 08/05/24 -Product Lot Number [id number] -Percent Used 100 100 -Lot number of Saline Used [id number] -Bleeding Controlled with Pressure Pressure -Offloading Yes Yes -Type of Offloading Wedge Shoe Surgical Shoe -Treatment Response Procedure Procedure Tolerated Well Tolerated Well -Debridement - Subq, 1st 20sq cm No No -Apply Skin Sub - 1st 25 sq cm - Feet 1 1 -Theraskin (per sq cm) 3 6 Pain Scale: 0-10 Numeric Is Patient Pain Free? Yes Yes - Nurse 3 - General Ulcer D/C NN Start: 01/20/21 09:35 Freq: Status: Active Protocol: Activity Type Activity Date Activity User E-Sign Co-Sign Detail Recorded Client Recorded Date Recorded By Document 01/20/21 10:20 DL Desktop 01/20/21 10:21 DL Document 01/27/21 09:49 [email or web address] [id number] 01/27/21 09:50 JF Document 02/03/21 10:10 JF [id number] 02/03/21 10:11 JF Document 02/17/21 11:38 MW Desktop 02/17/21 11:40 MW 01/20/21 01/27/21 02/03/21 10:20 09:49 10:10 Wound Care Nurse 3 #2- L LAT FOOT POST OP -Ulcer Cleansing Rinsed/ Rinsed/ Irrigated with Irrigated with Saline Saline -Foul Odor after Cleansing No No No -Negative Pressure Wound Therapy -Other Dressing theraskin -Primary Dressing Covered/Secured with Dry Gauze & Dry Gauze & Dry Gauze & Roll Gauze, Roll Gauze, Roll Gauze, Secured with Secured with Secured with Tape Tape Tape Left -Lotion applied to leg before compression wrap -Tubular Bandage Double Layer -Size of Tubigrip Used Size D -Size D ($) 0 -Size F ($) -Stockings -Other tubigrip Right -Other tubigrip Treatment Response Procedure Tolerated Well Pain Scale: 0-10 Numeric Is Patient Pain Free? Yes Yes Yes Teaching: Wound Center Dressing Your Wound -Person Taught -Teaching Method -Response to teaching WC - Visit Discharge Discharge Condition Stable Stable Stable Ambulatory Status Ambulatory, Ambulatory, Ambulatory,Cane Wheelchair Walker Transportation Private Auto Private Auto Private Auto Accompanied by Medication Reconcilliation completed & Yes Yes provided to patient/care provider Clinical Summary of Care Provided Yes Yes 02/17/21 11:38 Wound Care Nurse 3 #2- L LAT FOOT POST OP -Ulcer Cleansing Not Cleansed -Foul Odor after Cleansing No -Negative Pressure Wound Therapy N/A -Other Dressing -Primary Dressing Covered/Secured with Dry Gauze & Roll Gauze, Secured with Tape Left -Lotion applied to leg before No compression wrap -Tubular Bandage -Size of Tubigrip Used Size F -Size D ($) -Size F ($) 1 -Stockings No -Other Right -Other Treatment Response Procedure Tolerated Well Pain Scale: 0-10 Numeric Is Patient Pain Free? Yes Teaching: Wound Center Dressing Your Wound -Person Taught Patient -Teaching Method Discussion -Response to teaching Verbalize understanding WC - Visit Discharge Discharge Condition Stable Ambulatory Status Ambulatory,Cane Transportation Private Auto Accompanied by self Medication Reconcilliation completed & No provided to patient/care provider Clinical Summary of Care Provided Yes Wound debrided: lateral foot Laterality: Left Type of Debridement: Excisional debridement Anesthesia Used: 4% Lidocaine Solution Depth: in the subcutaneous layer Percentage of wound debrided: 100 Instrument Used: 3mm curette Tissue Removed: includes fibrous, devitalized, biofilm, callus and slough tissue Severity: Fat Layer Exposed Amount of bleeding with debridement: Mild Bleeding Controlled with: Pressure Patient tolerated procedure: Patient tolerated procedure well Assessment/Plan Assessment/Plan (1) 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 layer exposed: CODE(S): L97.522 - Non-pressure chronic ulcer of other part of left foot with fat layer exposed (2) Osteomyelitis: CODE(S): M86.9 - Osteomyelitis, unspecified QUALIFIERS: Laterality: left Osteomyelitis location: foot Osteomyelitis type: other acute Qualified Code(s): M86.172 - Other acute osteomyelitis, left ankle and foot (3) Type 2 diabetes mellitus with diabetic polyneuropathy: CODE(S): E11.42 - Type 2 diabetes mellitus with diabetic polyneuropathy (4) Bilateral leg edema: CODE(S): R60.0 - Localized edema (5) Morbid obesity: CODE(S): E66.01 - Morbid (severe) obesity due to excess calories (6) 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 Patient's wound looks very healthy in appearance with a very nice healthy granular base. It is improved After verbal consent was obtained patient had ulceration sharply debrided This patient is status post left partial fifth ray amputation 12/04/[address] Colvin. LEAS 12/03/2020 showed triphasic pulses bilaterally DP and PT. Right MEENA is 1.06 and TBI 0.80. Left MEENA is 0.97 and TBI 0.88. This suggests adequate perfusion for healing. Venous studies showed no evidence of acute DVT to bilateral lower extremities with patent and compressible bilateral great saphenous veins. Discussed importance of smoking cessation, blood sugar control, weight management, offloading, proper nutrition, infection control and hygiene to optimize healing potential. Patient was approved for TheraSkin graft. I recommend application of advanced wound healing product to the indicated ulceration. Prior authorization was confirmed. The indications, benefits, anticipated application and healing time management were reviewed in detail. Verbal consent was obtained in the procedure for today. Site was debrided and graft was applied according to standard protocol and was further secured with a nonadherent dressing and Steri-Strips. Patient instructed that they can change outer dressing but not to go beneath the Steri-Strips. Patient to leave outer dressing intact and can change outer dry sterile dressing as needed. Patient is to keep foot dry. Tubigrip was applied bilaterally. Discussed continuing Yossi supplementation that was begun at [facility] facility. All of his questions were answered. Follow-up in 1 week This note was generated with [employer] dictation software. It may contain incorrect words, spelling, and punctuation that were not noted in checking the note before signing.
== END 2021-02-17 23:59 ==
LOC: WC 10:30
PROVIDERS: PCP Family Medicine; Visit Provider Podiatrist Foot & Ankle Surgery
DX: E11.621 Type 2 diabetes mellitus with foot ulcer (principal); L97.522 Non-pressure chronic ulcer of other part of left foot with fat layer exposed; M86.172 Other acute osteomyelitis, left ankle and foot; E11.42 Type 2 diabetes mellitus with diabetic polyneuropathy; E66.01 Morbid (severe) obesity due to excess calories; L60.3 Nail dystrophy; R60.0 Localized edema; I48.91 Unspecified atrial fibrillation; E11.52 Type 2 diabetes mellitus with diabetic peripheral angiopathy with gangrene; E78.5 Hyperlipidemia, unspecified; I10 Essential (primary) hypertension
CPT/HCPCS: 15275; Q4121

== ENCOUNTER 2021-03-17 10:15 | Outpatient (RCR) | payer MEDICARE, OTHER, SELFPAY ==
[2021-02-18 00:37] VITALS: BP 156/87; PULSE 93; RESP 24; TEMP 36.3; BMI 56.1
[2021-02-24 09:38] VITALS: TEMP 36.1; BMI 56.1
--- NOTE | 2021-02-24 11:38 | PN.PCM_ITS ---
History of Present Illness Date of Service: 02/24/21 Chief Complaint: Left foot fifth ray resection amputation site History of Wound: Patient presents today status post partial fifth ray resection left foot. Patient has significant medical history of diabetes, osteomyelitis, morbid obesity, A. fib, edema, hypertension, hyperlipidemia, pickwickian syndrome. 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 Patient was discharged from hospital went to SNF facility and has since returned home. Patient continues care at the wound care center. Patient was approved for [employer] graft application. 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 Progress of Wound: Improved Subjective Subjective Patient seen and examined resting comfortably. Patient denies any new pedal complaints. Patient denies any nausea, fever, chills, chest pain, shortness of breath, cough, streaking, purulence, vomiting. Objective Data Objective Data Vital Signs: Vital Signs Temp Pulse Resp BP 96.9 F L 93 24 H 156/87 H 02/24/21 09:38 02/18/21 00:37 02/18/21 00:37 02/18/21 00:37 Weight: 167.376 kg Body Mass Index (BMI) 56.1 Physical Exam Narrative Const alert and no apparent distress General Appearance: cooperative and comfortable Nutritional Appearance: morbidly obese Resp normal respiratory effort Effort and Inspection: able to speak in complete sentences Extremity normal capillary refill and no calf tenderness General Extremity: edema bilateral lower extremity, no tenderness to palpation of joints or extremities and other findings Other Details: Capillary refill time less than 3 seconds noted to remaining digits ; Negative for clubbing or cyanosis Skin General Skin Exam: atrophy and dry skin Rashes: no rashes Wound Narrative: Ulceration to left lateral foot at fifth partial ray amputation The wound bed is granular without visualized bone with good amounts of granulation tissue. There is no malodor, purulence, erythema. The adjacent skin is hairless and atrophic. Wound has minimal periwound maceration noted. There is a skin island noted to be starting. DP and PT palpable. Lower extremity edema noted bilateral. Partial fifth ray amputation left foot. Compartments remain soft to palpate. Neuro Sensory Exam: extremities light-touch: absent Psych Appearance: appropriate Attitude: calm Debridement Note Debridement Note Wound debrided: Lateral foot Laterality: Left Wound Grade/Stage: Tucker 3 Type of Debridement: Excisional debridement Anesthesia Used: 4% Lidocaine Solution Depth: in the subcutaneous layer Percentage of wound debrided: 100 Instrument Used: 3mm curette Tissue Removed: includes fibrous, devitalized, biofilm, callus and slough tissue Severity: Fat Layer Exposed Amount of bleeding with debridement: Mild Bleeding Controlled with: Pressure Patient tolerated procedure: Patient tolerated procedure well Post-Debridement Measurements and Additional Note: Post-Debridement Tiffany surements/Treatment BUDDY - Nurse 1 - General Ulcer Assessment Start: 02/24/21 09:37 Freq: Status: Active Protocol: MARGY Activity Type Activity Date Activity User E-Sign Co-Sign Detail Recorded Client Recorded Date Recorded By Document 02/24/21 09:38 SARIKA [id number] 02/24/21 09:43 SARIKA 02/24/21 09:38 - Today's Visit Information Type of service 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 Any new allergies or adverse reactions No Had a fall/change in ADL's that may No increase risk of falls Signs or symptoms of abuse and/or No neglect since last visit Have you been in the hospital since your No last visit? Has dressing in place as prescribed Yes Has compression in place as prescribed Yes Has offloadiing in place as prescribed Yes Experienced any changes in pain level or No management Left Footwear Regular Shoe Right Footwear Surgical Shoe with pressure relief insole - Nurse 1 - General Ulcer Measurement Start: 02/24/21 09:37 Freq: Status: Active Protocol: Activity Type Activity Date Activity User E-Sign Co-Sign Detail Recorded Client Recorded Date Recorded By Document 02/24/21 09:38 SARIKA [id number] 02/24/21 09:43 SARIKA 02/24/21 09:38 Wound Center Nurse 1 #2- L LAT FOOT POST OP -Current Size (cm) - Length 0.8 -Current Size (cm) - Width 0.8 -Current Size (cm) - Depth 0.1 -Total Square Cm 0.64 -Photo Taken No -Tunneling No -Undermining/Tunneling No -Circular Undermining No -Change in Wound Grade/Stage No -Exudate Amt Large -Exudate Type Serosanguineous -Wound Margin Distinct, Outline Attached -Granulation Amt Large (67-100%) -Granulation Quality Red -Slough/Fibrin No -Necrosis Amt Small (1-33%) -Necrotic Tissue Type Adherent Slough -Structure Exposed N/A -Texture (Lesvia-wound Skin Appearance) No Abnormality, Assessed -Moisture (Lesvia-wound Skin Appearance) Assessed, Maceration -Color (Lesvia-wound Skin Appearance) No Abnormality, Assessed -Temperature (Lesvia-wound Skin No Abnormality Appearance) (Pt Warm) -Tenderness on Palpation (Lesvia-wound No Skin Appearance) -Ulcer Cleansing Rinsed/ Irrigated with Saline -Anesthetic Used 5% Lidocaine Gel Left Calf (cm) 47.4 Left Ankle (cm) 30.6 WC - Nurse 2 - General Ulcer CM Notes Start: 02/24/21 09:37 Freq: Status: Active Protocol: Activity Type Activity Date Activity User E-Sign Co-Sign Detail Recorded Client Recorded Date Recorded By Document 02/24/21 09:54 MW [id number] 02/24/21 09:56 MW 02/24/21 09:54 Wound Center Nurse 2 #2- L LAT FOOT POST OP -Time 09:54 -Correct Patient Yes -Correct Side, Site, Position Yes -Correct Procedure Yes -Procedure Performed Yes -Type of Procedure Incision & Drainage -Clinical Debridement Subcutaneous -Post Debridement (cm) - Length 0.7 -Post Debridement (cm) - Width 0.6 -Post Debridement (cm) - Depth 0.1 -Total Square (Post) (cm) 0.42 -Area of Debridement (cm) - Length 0.7 -Area of Debridement (cm) - Width 0.6 -Total Square (Area) (cm) 0.42 -Tunneling No -Undermining/Tunneling No -Circular Undermining No -Wound/Ulcer Outcome Not Healed -Ulcer Cleansing Rinsed/ Irrigated with Saline -Foul Odor after Cleansing No -Bioengineered Tissue Yes -Type of Bioengineered Tissue Theraskin -Expiration Date 07/22/24 -Product Lot Number [id number] -Percent Used 100 -Lot number of Saline Used [id number] -Bleeding Controlled with Pressure -Offloading No -Treatment Response Procedure Tolerated Well -Debridement - Subq, 1st 20sq cm No -Apply Skin Sub - 1st 25 sq cm - Feet 1 -Theraskin (per sq cm) 3 Pain Scale: 0-10 Numeric Is Patient Pain Free? Yes - Nurse 3 - General Ulcer D/C NN Start: 02/24/21 09:37 Freq: Status: Active Protocol: Activity Type Activity Date Activity User E-Sign Co-Sign Detail Recorded Client Recorded Date Recorded By Document 02/24/21 10:05 [facility] [id number] 02/24/21 10:05 [facility] 02/24/21 10:05 Wound Care Nurse 3 #2- L LAT FOOT POST OP -Primary Dressing Applied Other -Other Dressing [place] -Primary Dressing Covered/Secured with Dry Gauze & Roll Gauze, Secured with Tape Left -Tubular Bandage Single Layer -Size of Tubigrip Used Size F -Size F ($) 1 Treatment Response Procedure Tolerated Well Pain Scale: 0-10 Numeric Is Patient Pain Free? Yes WC - Visit Discharge Discharge Condition Stable Ambulatory Status Ambulatory,Cane Transportation Private Auto Assessment/Plan Assessment/Plan (1) 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 layer exposed: CODE(S): L97.522 - Non-pressure chronic ulcer of other part of left foot with fat layer exposed (2) Type 2 diabetes mellitus with diabetic polyneuropathy: CODE(S): E11.42 - Type 2 diabetes mellitus with diabetic polyneuropathy QUALIFIERS: Diabetes mellitus assisted insulin use: unspecified assisted insulin use status Qualified Code(s): E11.42 - Type 2 diabetes mellitus with diabetic polyneuropathy (3) 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 Patient's wound looks very healthy in appearance with a very nice healthy granular base. It is improved with a noted skin island starting to form. There is mild periwound maceration noted to form. Some Betadine was placed on this area prior to graft application to help dry it out After verbal consent was obtained patient had ulceration sharply debrided This patient is status post left partial fifth ray amputation 12/04/[address] Colvin. LEAS 12/03/2020 showed triphasic pulses bilaterally DP and PT. Right MEENA is 1.06 and TBI 0.80. Left MEENA is 0.97 and TBI 0.88. This suggests adequate perfusion for healing. Venous studies showed no evidence of acute DVT to bilateral lower extremities with patent and compressible bilateral great saphenous veins. Discussed importance of smoking cessation, blood sugar control, weight management, offloading, proper nutrition, infection control and hygiene to optimize healing potential. Patient was approved for TheraSkin graft. I recommend application of advanced wound healing product to the indicated ulceration. Prior authorization was confirmed. The indications, benefits, anticipated application and healing time management were reviewed in detail. Verbal consent was obtained in the procedure for today. Site was debrided and graft was applied according to standard protocol and was further secured with a nonadherent dressing and Steri-Strips. Patient instructed that they can change outer dressing but not to go beneath the Steri-Strips. Patient to leave outer dressing intact and can change outer dry sterile dressing as needed. Patient is to keep foot dry. Tubigrip was applied bilaterally. Discussed continuing Yossi supplementation that was begun at [facility] facility. All of his questions were answered. Follow-up in 2 weeks This note was generated with PowerVision dictation software. It may contain incorrect words, spelling, and punctuation that were not noted in checking the note before signing.
--- NOTE | 2021-03-10 08:31 | PN.PCM_ITS ---
History of Present Illness Date of Service: 03/10/21 Chief Complaint: Left foot fifth ray resection amputation site History of Wound: Patient presents today status post partial fifth ray resection left foot. Patient has significant medical history of diabetes, osteomyelitis, morbid obesity, A. fib, edema, hypertension, hyperlipidemia, pickwickian syndrome. 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 Patient was discharged from hospital went to SNF facility and has since returned home. Patient continues care at the wound care center. 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 Progress of Wound: Improved Subjective Subjective Patient seen and examined resting comfortably. Patient denies any new pedal complaints. Patient denies any nausea, fever, chills, chest pain, shortness of breath, cough, streaking, purulence, vomiting. Objective Data Objective Data Vital Signs: Vital Signs Temp Pulse Resp BP 96.9 F L 93 24 H 156/87 H 02/24/21 09:38 02/18/21 00:37 02/18/21 00:37 02/18/21 00:37 Weight: 167.376 kg Body Mass Index (BMI) 56.1 Physical Exam Narrative Const alert and no apparent distress General Appearance: cooperative and comfortable Nutritional Appearance: morbidly obese Resp normal respiratory effort Effort and Inspection: able to speak in complete sentences Extremity normal capillary refill and no calf tenderness General Extremity: edema bilateral lower extremity, no tenderness to palpation of joints or extremities and other findings Other Details: Capillary refill time less than 3 seconds noted to remaining digits ; Negative for clubbing or cyanosis Skin General Skin Exam: atrophy and dry skin Rashes: no rashes Wound Narrative: Ulceration to left lateral foot at fifth partial ray amputation The wound bed is granular without visualized bone with good amounts of granulation tissue. There is no malodor, purulence, erythema. The adjacent skin is hairless and atrophic. Periwound maceration resolved. DP and PT palpable. Lower extremity edema noted bilateral. Partial fifth ray amputation left foot. Compartments remain soft to palpate. Neuro Sensory Exam: extremities light-touch: absent Psych Appearance: appropriate Attitude: calm Debridement Note Debridement Note Wound debrided: Lateral foot Laterality: Left Wound Grade/Stage: Tucker 3 Type of Debridement: Excisional debridement Anesthesia Used: 4% Lidocaine Solution Depth: in the subcutaneous layer Percentage of wound debrided: 100 Instrument Used: 3mm curette Tissue Removed: includes fibrous, devitalized, biofilm, callus and slough tissue Severity: Fat Layer Exposed Amount of bleeding with debridement: Mild Bleeding Controlled with: Pressure Patient tolerated procedure: Patient tolerated procedure well Post-Debridement Measurements and Additional Note: Wound Measurements and Assessment WC - Nurse 1 - General Ulcer Measurement Start: 02/24/21 09:37 Freq: Status: Active Protocol: Activity Type Activity Date Activity User E-Sign Co-Sign Detail Recorded Client Recorded Date Recorded By Document 03/10/21 10:11 DL Desktop 03/10/21 10:19 DL 03/10/21 10:11 Wound Center Nurse 1 [Ulcer Assessment] #2- L LAT FOOT POST OP -Current Size (cm) - Length 0.1 -Current Size (cm) - Width 0.1 -Current Size (cm) - Depth 0.1 -Total Square Cm 0.01 -Photo Taken No -Exudate Amt None Present -Wound Margin Distinct, Outline Attached -Granulation Amt Medium (34-66%) -Granulation Quality Red -Necrosis Amt Medium (34-66%) -Necrotic Tissue Type Adherent Slough -Structure Exposed N/A -Texture (Lesvia-wound Skin Appearance) No Abnormality -Moisture (Lesvia-wound Skin Appearance No Abnormality ) -Color (Lesvia-wound Skin Appearance) No Abnormality -Temperature (Lesvia-wound Skin No Abnormality Appearance) (Pt Warm) -Tenderness on Palpation (Lesvia-wound No Skin Appearance) -Ulcer Cleansing Wound Cleanser -Foul Odor after Cleansing No -Anesthetic Used 4% Lidocaine Solution WC - Nurse 2 - General Ulcer CM Notes Start: 02/24/21 09:37 Freq: Status: Active Protocol: Activity Type Activity Date Activity User E-Sign Co-Sign Detail Recorded Client Recorded Date Recorded By Document 03/10/21 10:43 JF [id number] 03/10/21 10:51 [email or web address] 03/10/21 10:43 Wound Center Nurse 2 [Procedure/Treatment] -Time 10:43 -Correct Patient Yes -Correct Side, Site, Position Yes -Correct Procedure Yes -Procedure Performed Yes -Type of Procedure Debridement -Clinical Debridement Subcutaneous -Tissue Removed Subcutaneous -Post Debridement (cm) - Length 0.2 -Post Debridement (cm) - Width 0.4 -Post Debridement (cm) - Depth 0.1 -Total Square (Post) (cm) 0.08 -Area of Debridement (cm) - Length 0.2 -Area of Debridement (cm) - Width 0.4 -Total Square (Area) (cm) 0.08 -Tunneling No -Undermining/Tunneling No -Circular Undermining No -Wound/Ulcer Outcome Not Healed -Ulcer Cleansing Wound Cleanser -Foul Odor after Cleansing No -Bioengineered Tissue Yes -Type of Bioengineered Tissue Theraskin -Expiration Date 07/22/24 -Product Lot Number [id number] -Percent Used 100 -Lot number of Saline Used [id number] -Bleeding Controlled with Pressure -Offloading Yes -Type of Offloading Wedge Shoe -Treatment Response Procedure Tolerated Well -Debridement - Subq, 1st 20sq cm No -Apply Skin Sub - 1st 25 sq cm - Feet 1 -Theraskin (per sq cm) 3 [See Physician Procedure note for Specifics] Pain Scale: 0-10 Numeric [Pain] -Is Patient Pain Free? 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 Patient's wound looks very healthy in appearance with a very nice healthy granular base. It is improved with smaller size noted After verbal consent was obtained patient had ulceration sharply debrided This patient is status post left partial fifth ray amputation 12/04/[address] Colvin. LEAS 12/03/2020 showed triphasic pulses bilaterally DP and PT. Right MEENA is 1.06 and TBI 0.80. Left MEENA is 0.97 and TBI 0.88. This suggests adequate perfusion for healing. Venous studies showed no evidence of acute DVT to bilateral lower extremities with patent and compressible bilateral great saphenous veins. Discussed importance of smoking cessation, blood sugar control, weight management, offloading, proper nutrition, infection control and hygiene to optimize healing potential. Patient was approved for TheraSkin graft. I recommend application of advanced wound healing product to the indicated ulceration. Prior authorization was confirmed. The indications, benefits, anticipated application and healing time management were reviewed in detail. Verbal consent was obtained in the procedure for today. Site was debrided and graft was applied according to standard protocol and was further secured with a nonadherent dressing and Steri-Strips. Patient instructed that they can change outer dressing but not to go beneath the Steri-Strips. Patient to leave outer dressing intact and can change outer dry sterile dressing as needed. Patient is to keep foot dry. Tubigrip was applied bilaterally. Discussed continuing Yossi supplementation that was begun at [facility] facility. All of his questions were answered. Follow-up in 1 week This note was generated with [employer]zik dictation software. It may contain incorrect words, spelling, and punctuation that were not noted in checking the note before signing.
[2021-03-10 10:11] VITALS: BP 149/80; PULSE 102; RESP 24; TEMP 36.9; BMI 56.1
--- NOTE | 2021-03-17 09:16 | PN.PCM_ITS ---
History of Present Illness Date of Service: 03/17/21 Chief Complaint: Left foot fifth ray resection amputation site History of Wound: Patient presents today status post partial fifth ray resection left foot. Patient has significant medical history of diabetes, osteomyelitis, morbid obesity, A. fib, edema, hypertension, hyperlipidemia, pickwickian syndrome. 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 Patient was discharged from hospital went to SNF facility and has since returned home. Patient continues care at the wound care center. Patient was approved for [employer] graft application. 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 Progress of Wound: Improved Subjective Subjective Patient seen and examined resting comfortably. Patient denies any new pedal complaints. Patient denies any nausea, fever, chills, chest pain, shortness of breath, cough, streaking, purulence, vomiting. 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 without any reported incidence Objective Data Objective Data Vital Signs: Vital Signs Temp Pulse Resp BP 98.4 F 102 H 24 H 149/80 H 03/10/21 10:11 03/10/21 10:11 03/10/21 10:11 03/10/21 10:11 Weight: 167.376 kg Body Mass Index (BMI) 56.1 Physical Exam Narrative Const alert and no apparent distress General Appearance: cooperative and comfortable Nutritional Appearance: morbidly obese Resp normal respiratory effort Effort and Inspection: able to speak in complete sentences Extremity normal capillary refill and no calf tenderness General Extremity: edema bilateral lower extremity, no tenderness to palpation of joints or extremities and other findings Other Details: Capillary refill time less than 3 seconds noted to remaining digits ; Negative for clubbing or cyanosis Skin General Skin Exam: atrophy and dry skin Rashes: no rashes Wound Narrative: Ulceration to left lateral foot at fifth partial ray amputation The wound bed is granular without visualized bone with good amounts of granulation tissue. There is no malodor, purulence, erythema. The adjacent skin is hairless and atrophic. Periwound maceration resolved. DP and PT palpable. Lower extremity edema noted bilateral. Partial fifth ray amputation left foot. Compartments remain soft to palpate. Neuro Sensory Exam: extremities light-touch: absent Psych Appearance: appropriate Attitude: calm Debridement Note Debridement Note Wound debrided: Lateral foot Laterality: Left Wound Grade/Stage: Tucker 3 Type of Debridement: Excisional debridement Anesthesia Used: 4% Lidocaine Solution Depth: in the subcutaneous layer Percentage of wound debrided: 100 Instrument Used: 3mm curette Tissue Removed: includes fibrous, devitalized, biofilm, callus and slough tissue Severity: Fat Layer Exposed Amount of bleeding with debridement: Mild Bleeding Controlled with: Pressure Patient tolerated procedure: Patient tolerated procedure well Post-Debridement Measurements and Additional Note: Wound Measurements and Assessment WC - Nurse 1 - General Ulcer Measurement Start: 02/24/21 09:37 Freq: Status: Active Protocol: Activity Type Activity Date Activity User E-Sign Co-Sign Detail Recorded Client Recorded Date Recorded By Document 03/17/21 10:25 DL Desktop 03/17/21 10:34 DL 03/17/21 10:25 Wound Center Nurse 1 [Ulcer Assessment] #2- L LAT FOOT POST OP -Current Size (cm) - Length 0.1 -Current Size (cm) - Width 0.1 -Current Size (cm) - Depth 0.1 -Total Square Cm 0.01 -Photo Taken No -Exudate Amt Small -Exudate Type Serosanguineous -Wound Margin Thickened -Granulation Amt Large (67-100%) -Granulation Quality [place] -Necrosis Amt Small (1-33%) -Necrotic Tissue Type Adherent Slough -Structure Exposed N/A -Texture (Lesvia-wound Skin Appearance) Scarring -Moisture (Lesvia-wound Skin Appearance No Abnormality ) -Color (Lesvia-wound Skin Appearance) No Abnormality -Temperature (Lesvia-wound Skin No Abnormality Appearance) (Pt Warm) -Tenderness on Palpation (Lesvia-wound No Skin Appearance) -Ulcer Cleansing Wound Cleanser -Foul Odor after Cleansing No -Anesthetic Used 4% Lidocaine Solution BUDDY - Nurse 2 - General Ulcer CM Notes Start: 02/24/21 09:37 Freq: Status: Active Protocol: Activity Type Activity Date Activity User E-Sign Co-Sign Detail Recorded Client Recorded Date Recorded By Document 03/17/21 10:51 [id number] 03/17/21 10:53 03/17/21 10:51 Wound Center Nurse 2 [Procedure/Treatment] -Time 10:52 -Correct Patient Yes -Correct Side, Site, Position Yes -Correct Procedure Yes -Procedure Performed Yes -Type of Procedure Debridement -Clinical Debridement Subcutaneous -Tissue Removed Subcutaneous -Post Debridement (cm) - Length 0.1 -Post Debridement (cm) - Width 0.1 -Post Debridement (cm) - Depth 0.1 -Total Square (Post) (cm) 0.01 -Area of Debridement (cm) - Length 0.1 -Area of Debridement (cm) - Width 0.1 -Total Square (Area) (cm) 0.01 -Tunneling No -Undermining/Tunneling No -Circular Undermining No -Wound/Ulcer Outcome Not Healed -Ulcer Cleansing Rinsed/ Irrigated with Saline -Foul Odor after Cleansing No -Bioengineered Tissue No -Bleeding Controlled with Pressure -Offloading No -Treatment Response Procedure Tolerated Well -Debridement - Subq, 1st 20sq cm Yes [See Physician Procedure note for Specifics] Pain Scale: 0-10 Numeric [Pain] -Is Patient Pain Free? 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 Patient's wound looks very healthy in appearance with a very nice healthy granular base. It is improved with smaller size noted After verbal consent was obtained patient had ulceration sharply debrided This patient is status post left partial fifth ray amputation 12/04/[address] Colvin. MATTIE 12/03/2020 showed triphasic pulses bilaterally DP and PT. Right MEENA is 1.06 and TBI 0.80. Left MEENA is 0.97 and TBI 0.88. This suggests adequate perfusion for healing. Venous studies showed no evidence of acute DVT to bilateral lower extremities with patent and compressible bilateral great saphenous veins. Discussed importance of smoking cessation, blood sugar control, weight management, offloading, proper nutrition, infection control and hygiene to optimize healing potential. Patient to do daily Roseanna dressing changes covered by dry sterile dressing after washing foot with soap and water. Patient is allowed to start wearing normal shoe. Discussed continuing Yossi supplementation that was begun at [facility] facility. All of his questions were answered. Follow-up in 2 weeks This note was generated with [employer] dictation software. It may contain incorrect words, spelling, and punctuation that were not noted in checking the note before signing.
[2021-03-17 10:25] VITALS: BP 158/85; PULSE 87; RESP 22; TEMP 36.9; BMI 56.1
== END 2021-03-19 23:59 ==
LOC: WC 10:15
PROVIDERS: PCP Family Medicine; Visit Provider Podiatrist Foot & Ankle Surgery
DX: E11.621 Type 2 diabetes mellitus with foot ulcer (principal); L97.522 Non-pressure chronic ulcer of other part of left foot with fat layer exposed; E11.42 Type 2 diabetes mellitus with diabetic polyneuropathy; R60.0 Localized edema; E66.2 Morbid (severe) obesity with alveolar hypoventilation; E11.52 Type 2 diabetes mellitus with diabetic peripheral angiopathy with gangrene; E11.69 Type 2 diabetes mellitus with other specified complication; E78.5 Hyperlipidemia, unspecified; I10 Essential (primary) hypertension; Z89.422 Acquired absence of other left toe(s); I48.91 Unspecified atrial fibrillation; Z79.4 Long term (current) use of insulin; Z68.43 Body mass index [BMI] 50.0-59.9, adult
CPT/HCPCS: 11042; 15275; Q4121

== ENCOUNTER 2021-04-14 10:30 | Outpatient (RCR) | payer MEDICARE, OTHER, SELFPAY ==
[2021-03-20 00:29] VITALS: BP 158/85; PULSE 87; RESP 22; TEMP 36.9; BMI 56.1
[2021-03-31 10:38] VITALS: BP 183/94; PULSE 94; RESP 22; TEMP 36.9; BMI 56.1
--- NOTE | 2021-03-31 11:08 | PCM.WC.PN ---
History of Present Illness Date of Service: 03/31/21 Chief Complaint: Left foot fifth ray resection amputation site History of Wound: Patient presents today status post partial fifth ray resection left foot. Patient has significant medical history of diabetes, osteomyelitis, morbid obesity, A. fib, edema, hypertension, hyperlipidemia, pickwickian syndrome. 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 Patient was discharged from hospital went to SNF facility and has since returned home. Patient continues care at the wound care center. Patient was approved for [employer] graft application. 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 Patient believes that he has healed due to lateral foot wound but has new wound to top of big toe Progress of Wound: Healed lateral foot wound new wound to hallux Subjective Subjective Patient seen and examined resting comfortably. Patient denies any new pedal complaints. Patient denies any nausea, fever, chills, chest pain, shortness of breath, cough, streaking, purulence, vomiting. Relates new blister to left hallux toe with underlying wound Objective Data Objective Data Vital Signs: Vital Signs Temp Pulse Resp BP 98.4 F 94 22 H 183/94 H 03/31/21 10:38 03/31/21 10:38 03/31/21 10:38 03/31/21 10:38 Oxygen Delivery Method Room Air Weight: 167.376 kg Body Mass Index (BMI) 56.1 Physical Exam Narrative Const alert and no apparent distress General Appearance: cooperative and comfortable Nutritional Appearance: morbidly obese Resp normal respiratory effort Effort and Inspection: able to speak in complete sentences Extremity normal capillary refill and no calf tenderness General Extremity: edema bilateral lower extremity-left noted to have abnormal shape from compression rolling to ankle level with edema above and below this spot, no tenderness to palpation of joints or extremities and other findings Other Details: Capillary refill time less than 3 seconds noted to remaining digits ; Negative for clubbing or cyanosis Skin General Skin Exam: atrophy and dry skin Rashes: no rashes Wound Narrative: Ulceration to left lateral foot at fifth partial ray amputation has healed. New wound noted to left dorsal hallux The wound bed is granular without visualized bone with good amounts of granulation tissue. There is no malodor, purulence, erythema. The adjacent skin is hairless and atrophic. DP and PT palpable. Lower extremity edema noted bilateral. Partial fifth ray amputation left foot. Compartments remain soft to palpate. Neuro Sensory Exam: extremities light-touch: absent Psych Appearance: appropriate Attitude: calm Debridement Note Debridement Note Wound debrided: Dorsal hallux Laterality: Left Wound Grade/Stage: Tucker 1 Type of Debridement: Excisional debridement Anesthesia Used: 4% Lidocaine Solution Depth: in the subcutaneous layer Percentage of wound debrided: 100 Instrument Used: 3mm curette Tissue Removed: includes fibrous, devitalized, biofilm, callus and slough tissue Severity: Fat Layer Exposed Amount of bleeding with debridement: Mild Bleeding Controlled with: Pressure Patient tolerated procedure: Patient tolerated procedure well Post-Debridement Measurements and Additional Note: Post-Debridement Measurements/Treatment BUDDY - Nurse 1 - General Ulcer Assessment Start: 03/31/21 10:37 Freq: Status: Active Protocol: MARGY Activity Type Activity Date Activity User E-Sign Co-Sign Detail Recorded Client Recorded Date Recorded By Document 03/31/21 10:38 MW [id number] 03/31/21 10:48 MW 03/31/21 10:38 WC - Today's Visit Information Type of service Follow-up Visit (Physician/GUEST RELATIONS RECEPTIONIST ) Arrival Mode Ambulatory Transfer Assistance None Accompanied by self Patient Identification Verified (Name & Yes ) Patient Requires Transmission-Based No Precautions Safety Precautions NA Height and Weight Body Mass Index (BMI) 56.1 BMI Classification Obese Vital Signs Temperature (97.8 F-99.1 F) 98.4 F Temperature Source Temporal Pulse Rate (60-100) 94 Pulse Location Monitor Respiratory Rate (12-18) 22 H Respiratory rate source Observation Oxygen Delivery Method Room Air Blood Pressure (90/60-120/80) 183/94 H Blood Pressure Mean (mm Hg) 123 Source Monitor Position Sitting Blood Pressure Location Right Forearm History Since Last Visit- (Skip if this is Patient's initial visit) Have you changed medications since your No last visit? Any new allergies or adverse reactions No Had a fall/change in ADL's that may No increase risk of falls Signs or symptoms of abuse and/or No neglect since last visit Have you been in the hospital since your No last visit? Has dressing in place as prescribed Yes Has compression in place as prescribed N/A Has offloadiing in place as prescribed N/A Experienced any changes in pain level or No management Left Footwear Regular Shoe Right Footwear Regular Shoe Pain Scale: 0-10 Numeric Is Patient Pain Free? Yes BUDDY - Nurse 1 - General Ulcer Measurement Start: 03/31/21 10:37 Freq: Status: Active Protocol: Activity Type Activity Date Activity User E-Sign Co-Sign Detail Recorded Client Recorded Date Recorded By Document 03/31/21 10:38 MW [id number] 03/31/21 10:48 MW Edit Result 03/31/21 10:38 MW (1) [id number] 03/31/21 10:49 MW (1) Lower Limb Edema Present => Yes Left Calf (cm) => 45.2 Left Ankle (cm) => 27.0 03/31/21 10:38 Wound Center Nurse 1 #3 left anterior great toe -Combined with other wound No -Current Size (cm) - Length 0.6 -Current Size (cm) - Width 0.7 -Current Size (cm) - Depth 0.1 -Total Square Cm 0.42 -Photo Taken No -Epithelialization None Present -Tunneling No -Undermining/Tunneling No -Circular Undermining No -Exudate Amt Medium -Exudate Type Serosanguineous -Wound Margin Flat & Intact -Granulation Amt Medium (34-66%) -Granulation Quality [place] -Slough/Fibrin Yes -Necrosis Amt Small (1-33%) -Necrotic Tissue Type Adherent Slough -Structure Exposed N/A -Texture (Lesvia-wound Skin Appearance) Assessed, Localized Edema -Moisture (Lesvia-wound Skin Appearance) No Abnormality, Assessed -Color (Lesvia-wound Skin Appearance) No Abnormality, Assessed -Temperature (Lesvia-wound Skin No Abnormality Appearance) (Pt Warm) -Tenderness on Palpation (Lesvia-wound No Skin Appearance) -Ulcer Cleansing Rinsed/ Irrigated with Saline -Foul Odor after Cleansing No -Anesthetic Used 4% Lidocaine Solution #2- L LAT FOOT POST OP -Combined with other wound No -Current Size (cm) - Length 0.1 -Current Size (cm) - Width 0.1 -Current Size (cm) - Depth 0.1 -Total Square Cm 0.01 -Undermining/Tunneling No -Circular Undermining No -Exudate Amt None Present -Wound Margin Flat & Intact -Granulation Amt None Present (0 %) -Granulation Quality N/A -Slough/Fibrin No -Necrosis Amt None Present (0 %) -Texture (Lesvia-wound Skin Appearance) Assessed, Scarring -Moisture (Lesvia-wound Skin Appearance) Assessed -Color (Lesvia-wound Skin Appearance) Assessed -Temperature (Lesvia-wound Skin No Abnormality Appearance) (Pt Warm) -Tenderness on Palpation (Lesvia-wound No Skin Appearance) -Ulcer Cleansing Rinsed/ Irrigated with Saline -Foul Odor after Cleansing No Lower Limb Edema Present Yes Left Calf (cm) 45.2 Left Ankle (cm) 27.0 WC - Nurse 2 - General Ulcer CM Notes Start: 03/31/21 10:37 Freq: Status: Active Protocol: Activity Type Activity Date Activity User E-Sign Co-Sign Detail Recorded Client Recorded Date Recorded By Document 03/31/21 10:54 [email or web address] [id number] 03/31/21 10:56 [email or web address] 03/31/21 10:54 Wound Center Nurse 2 #3 left anterior great toe -Time 10:54 -Correct Patient Yes -Correct Side, Site, Position Yes -Correct Procedure Yes -Procedure Performed Yes -Type of Procedure Debridement -Clinical Debridement Subcutaneous -Tissue Removed Subcutaneous -Post Debridement (cm) - Length 0.5 -Post Debridement (cm) - Width 0.7 -Post Debridement (cm) - Depth 0.1 -Total Square (Post) (cm) 0.35 -Area of Debridement (cm) - Length 0.5 -Area of Debridement (cm) - Width 0.7 -Total Square (Area) (cm) 0.35 -Tunneling No -Undermining/Tunneling No -Circular Undermining No -Wound/Ulcer Outcome Amputation -Ulcer Cleansing Rinsed/ Irrigated with Saline -Foul Odor after Cleansing No -Bioengineered Tissue No -Bleeding Controlled with Pressure -Offloading No -Treatment Response Procedure Tolerated Well -Debridement - Subq, 1st 20sq cm Yes #2- L LAT FOOT POST OP -Correct Patient No -Correct Side, Site, Position No -Correct Procedure No -Procedure Performed No -Post Debridement (cm) - Length 0 -Post Debridement (cm) - Width 0 -Post Debridement (cm) - Depth 0 -Total Square (Post) (cm) 0 -Area of Debridement (cm) - Length 0 -Area of Debridement (cm) - Width 0 -Total Square (Area) (cm) 0 -Wound/Ulcer Outcome Healed- Epithelialized Pain Scale: 0-10 Numeric Is Patient Pain Free? Yes Assessment/Plan Assessment/Plan (1) Type 2 diabetes mellitus with diabetic polyneuropathy: CODE(S): E11.42 - Type 2 diabetes mellitus with diabetic polyneuropathy QUALIFIERS: Diabetes mellitus chcf insulin use: unspecified intermediate designer insulin use status Qualified Code(s): E11.42 - Type 2 diabetes mellitus with diabetic polyneuropathy (2) 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 layer exposed: CODE(S): L97.522 - Non-pressure chronic ulcer of other part of left foot with fat layer exposed (3) History of partial ray amputation of fifth toe of left foot: CODE(S): Z89.422 - Acquired absence of other left toe(s) (4) Bilateral leg edema: CODE(S): R60.0 - Localized edema (5) Pickwickian syndrome: CODE(S): E66.2 - Morbid (severe) obesity with alveolar hypoventilation PLAN: Patient seen and examined. Patient's wound to lateral left foot has healed. He has new wound to dorsal hallux. He is noted to have gone back to his regular tennis shoes. It is possible he had some rubbing in his shoes that caused new wound After verbal consent was obtained patient had ulceration sharply debrided This patient is status post left partial fifth ray amputation 12/04/[address] Colvin. LEAS 12/03/2020 showed triphasic pulses bilaterally DP and PT. Right MEENA is 1.06 and TBI 0.80. Left MEENA is 0.97 and TBI 0.88. This suggests adequate perfusion for healing. Venous studies showed no evidence of acute DVT to bilateral lower extremities with patent and compressible bilateral great saphenous veins. Discussed importance of smoking cessation, blood sugar control, weight management, offloading, proper nutrition, infection control and hygiene to optimize healing potential. Patient to do daily hydrogel dressing changes covered by dry sterile dressing after washing foot with soap and water. To cover with tubigrip. Discussed importance of keeping these to the level fo the knee. Patient noted to have let compression to have rolled down to ankle level on left. Discussed this can cause wounds or impede blood flow. Patient is allowed to start wearing normal shoe. To monitor closely. If wound doesn't improve will go back to surgical shoe. Discussed monitoring lateral foot amputation/old wound site closely as area has potential to break down again. To contact office if seen or concerns arise. Discussed continuing Yossi supplementation that was begun at [facility] facility. All of his questions were answered. Follow-up in 2 weeks. Patient is aware that I am leaving the wound care center and his care will be continued with another practicioner. Patient understands and is agreeable. This note was generated with [employer] software. It may contain incorrect words, spelling, and punctuation that were not noted in checking the note before signing.
[2021-04-14 10:39] VITALS: BP 196/97; PULSE 91; RESP 18; TEMP 35.8; BMI 56.1
--- NOTE | 2021-04-14 10:55 | PCM.WC.HP ---
History of Present Illness Date of Service: 04/14/21 Chief Complaint: Left foot fifth ray resection amputation site History of Wound: Patient presents today status post partial fifth ray resection left foot. Patient has significant medical history of diabetes, osteomyelitis, morbid obesity, A. fib, edema, hypertension, hyperlipidemia, pickwickian syndrome. 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 Patient was discharged from hospital went to SNF facility and has since returned home. Patient continues care at the wound care center. Patient was approved for TheraSkin graft application. 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 Patient believes that he has healed due to lateral foot wound but has new wound to top of big toe Progress of Wound: Healed lateral foot wound new wound to hallux [facility] Medical History Atrial fibrillation Bilateral leg edema BiPAP (biphasic positive airway pressure) dependence BiPAP (biphasic positive airway pressure) dependence Diabetes Diabetes Essential (primary) hypertension History of stress test HTN (hypertension) Hyperlipidemia Irregular heartbeat Lower extremity neuropathy Morbid obesity New onset atrial fibrillation (10/01/20) Obstructive sleep apnea Pickwickian syndrome Restless legs Sleep apnea Sleep apnea Thyroid nodule Type 2 diabetes mellitus Ulcer Home Medications losartan 100 mg PO DAILY 04/04/14 [History Last Taken 12/03/20] metformin 1,000 mg PO BIDCM 04/04/14 [History Last Taken 12/03/20] amlodipine 5 mg PO DAILY 10/01/20 [History Last Taken 12/03/20] calcium carbonate-mag oxide 1 tablet PO DAILY 10/01/20 [History Last Taken 09/30/20] gabapentin 300 mg PO QHS 10/01/20 [History Last Taken 12/02/20] iekmqvij-nbv-JB-lycopen-lutein 1 tablet PO DAILY 10/01/20 [History Last Taken 09/30/20] apixaban 5 mg PO BID #30 tablet 10/02/20 [Rx Last Taken 12/03/20] insulin glargine U-300 conc 300 unit/mL (3 mL) subcutaneous pen 30 unit SUBCUT DAILY 11/07/20 [History Last Taken 12/01/20] acetaminophen 500 mg PO Q6H PRN 12/03/20 [History Last Taken 12/03/20] aspirin 81 mg PO DAILY 12/03/20 [History Last Taken 12/03/20] metoprolol succinate [Toprol XL] 100 mg PO DAILY 12/03/20 [History Last Taken 12/03/20] pyridoxine (vitamin B6) [Vitamin B-6] 100 mg PO DAILY 12/03/20 [History Last Taken 12/03/20] cephalexin 500 mg PO TID #110 cap 12/09/20 [Rx Last Taken Unknown] linezolid 600 mg PO Q12H 10 Days #20 tab 12/09/20 [Rx Last Taken Unknown] metronidazole [Flagyl] 500 mg PO TID #110 tab 12/09/20 [Rx Last Taken Unknown] Allergy/AdvReac Type Severity Reaction Status Date / Time ampicillin Allergy Unknown Verified 12/03/20 13:12 peanut Allergy Other Verified 12/16/20 08:31 Penicillins Allergy Unknown Verified 12/03/20 13:12 PEANUT BUTTER Allergy Other Uncoded 12/16/20 08:31 Family History Mother Heart disease Diabetes Father Heart disease Cancer Surgical History History of wisdom tooth extraction Social History Smoking Status: Former smoker Vital Signs Vital Signs Vital Signs: 04/14/21 10:39 Temperature 96.5 F L Temperature Source Temporal Pulse Rate 91 Respiratory Rate 18 Blood Pressure 196/97 H Blood Pressure Mean 130 Blood Pressure Source Monitor Blood Pressure Position Sitting Blood Pressure Location Right Forearm Oxygen Delivery Method Room Air Weight Weight: 369 lb Body Mass Index (BMI) 56.1 Physical Exam Const alert, oriented x3, no apparent distress and well nourished Constitutional Narrative: The patient is noted to be morbidly obese, with a BMI of 56.1 General Appearance: cooperative, comfortable and well developed Orientation / Consciousness: awake, oriented to person, oriented to place and oriented to time HEENT normocephalic and head/scalp atraumatic Head and Scalp: normal to inspection, normocephalic and atraumatic External Ear: external ears normal Eyes PERRL and EOMs intact bilaterally General Eye: normal appearance of both eyes Resp normal respiratory effort, normal air movement, no retractions and no use of accessory muscles Effort and Inspection: able to speak in complete sentences Extremity no calf tenderness Extremity Narrative: Mild swelling and edema is noted in the patient's lower extremities bilaterally. General Extremity: Negative for clubbing or cyanosis Skin Wound Narrative: The ulcerations on the patient's left foot are now completely healed and epithelialized. The patient's left fifth ray amputation site, from December 04, 2020, is now completely healed. A more recent ulceration on the left dorsal hallux is also healed. There are no open wounds or ulcerations on the patient's left foot. Neuro oriented x3, CN's II-XII intact bilaterally and moves all extremities Sensorium / Orientation: awake, alert, oriented to person, oriented to place and oriented to time Psych Appearance: grossly normal and appropriate Attitude: calm Activity / Motor Behavior: appropriate eye contact Speech: normal speech Mood & Affect: euthymic mood Thought Process: normal thought process Thought Content: normal thought content Attention / Concentration: attention grossly intact Debridement Note Debridement Note No debridement was completed: No debridement was completed today Post-Debridement Measurements and Additional Note: Post-Debridement Measurements/Treatment - Nurse 1 - General Ulcer Assessment Start: 03/31/21 10:37 Freq: Status: Active Protocol: BUDDY.YOUNG Activity Type Activity Date Activity User E-Sign Co-Sign Detail Recorded Client Recorded Date Recorded By Document 03/31/21 10:38 [id number] 03/31/21 10:48 MW Document 04/14/21 10:39 [facility] [id number] 04/14/21 10:43 BMF 03/31/21 04/14/21 10:38 10:39 - Today's Visit Information Type of service Follow-up Visit Follow-up Visit (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 ) ) Arrival Mode Ambulatory Ambulatory,Cane Transfer Assistance None None Accompanied by self Patient Identification Verified (Name & Yes Yes ) Patient Requires Transmission-Based No No Precautions Safety Precautions NA Height and Weight Body Mass Index (BMI) 56.1 56.1 BMI Classification Obese Obese Vital Signs Temperature (97.8 F-99.1 F) 98.4 F 96.5 F L Temperature Source Temporal Temporal Pulse Rate (60-100) 94 91 Pulse Location Monitor Monitor Respiratory Rate (12-18) 22 H 18 Respiratory rate source Observation Observation Oxygen Delivery Method Room Air Room Air Blood Pressure (90/60-120/80) 183/94 H 196/97 H Blood Pressure Mean 123 130 Source Monitor Monitor Position Sitting Sitting Blood Pressure Location Right Forearm Right Forearm History Since Last Visit- (Skip if this is Patient's initial visit) Have you changed medications since your No No last visit? Any new allergies or adverse reactions No No Had a fall/change in ADL's that may No No increase risk of falls Signs or symptoms of abuse and/or No No neglect since last visit Have you been in the hospital since your No No last visit? Has dressing in place as prescribed Yes Yes Has compression in place as prescribed N/A N/A Has offloadiing in place as prescribed N/A Yes Experienced any changes in pain level or No No management Left Footwear Regular Shoe Regular Shoe Right Footwear Regular Shoe Regular Shoe Pain Scale: 0-10 Numeric Is Patient Pain Free? Yes Yes WC - Nurse 1 - General Ulcer Measurement Start: 03/31/21 10:37 Freq: Status: Active Protocol: Activity Type Activity Date Activity User E-Sign Co-Sign Detail Recorded Client Recorded Date Recorded By Document 03/31/21 10:38 MW [id number] 03/31/21 10:48 MW Edit Result 03/31/21 10:38 MW (1) [id number] 03/31/21 10:49 MW Document 04/14/21 10:39 BMF [id number] 04/14/21 10:43 BMF (1) Lower Limb Edema Present => Yes Left Calf (cm) => 45.2 Left Ankle (cm) => 27.0 03/31/21 04/14/21 10:38 10:39 Wound Center Nurse 1 #3 left anterior great toe -Combined with other wound No No -Current Size (cm) - Length 0.6 0.1 -Current Size (cm) - Width 0.7 0.1 -Current Size (cm) - Depth 0.1 0.1 -Total Square Cm 0.42 0.01 -Date of Last Picture (Recall this 04/14/21 field) -Photo Taken No Yes -Epithelialization None Present Large 67-100% -Tunneling No -Undermining/Tunneling No -Circular Undermining No -Exudate Amt Medium -Exudate Type Serosanguineous -Wound Margin Flat & Intact -Granulation Amt Medium (34-66%) -Granulation Quality [place] -Slough/Fibrin Yes -Necrosis Amt Small (1-33%) -Necrotic Tissue Type Adherent Slough -Structure Exposed N/A -Texture (Lesvia-wound Skin Appearance) Assessed, Assessed Localized Edema -Moisture (Lesvia-wound Skin Appearance) No Abnormality, Assessed,Dry/ Assessed Scaly -Color (Lesvia-wound Skin Appearance) No Abnormality, Assessed Assessed -Temperature (Lesvia-wound Skin No Abnormality No Abnormality Appearance) (Pt Warm) (Pt Warm) -Tenderness on Palpation (Lesvia-wound No No Skin Appearance) -Ulcer Cleansing Rinsed/ Irrigated with Saline -Foul Odor after Cleansing No No -Anesthetic Used 4% Lidocaine Solution #2- L LAT FOOT POST OP -Combined with other wound No -Current Size (cm) - Length 0.1 -Current Size (cm) - Width 0.1 -Current Size (cm) - Depth 0.1 -Total Square Cm 0.01 -Undermining/Tunneling No -Circular Undermining No -Exudate Amt None Present -Wound Margin Flat & Intact -Granulation Amt None Present (0 %) -Granulation Quality N/A -Slough/Fibrin No -Necrosis Amt None Present (0 %) -Texture (Lesvia-wound Skin Appearance) Assessed, Scarring -Moisture (Lesvia-wound Skin Appearance) Assessed -Color (Lesvia-wound Skin Appearance) Assessed -Temperature (Lesvia-wound Skin No Abnormality Appearance) (Pt Warm) -Tenderness on Palpation (Lesvia-wound No Skin Appearance) -Ulcer Cleansing Rinsed/ Irrigated with Saline -Foul Odor after Cleansing No Lower Limb Edema Present Yes Left Calf (cm) 45.2 Left Ankle (cm) 27.0 WC - Nurse 2 - General Ulcer CM Notes Start: 03/31/21 10:37 Freq: Status: Active Protocol: Activity Type Activity Date Activity User E-Sign Co-Sign Detail Recorded Client Recorded Date Recorded By Document 03/31/21 10:54 ÁNGEL [id number] 03/31/21 10:56 ÁNGEL 03/31/21 10:54 Wound Center Nurse 2 -Time 10:54 -Correct Patient Yes -Correct Side, Site, Position Yes -Correct Procedure Yes -Procedure Performed Yes -Type of Procedure Debridement -Clinical Debridement Subcutaneous -Tissue Removed Subcutaneous -Post Debridement (cm) - Length 0.5 -Post Debridement (cm) - Width 0.7 -Post Debridement (cm) - Depth 0.1 -Total Square (Post) (cm) 0.35 -Area of Debridement (cm) - Length 0.5 -Area of Debridement (cm) - Width 0.7 -Total Square (Area) (cm) 0.35 -Tunneling No -Undermining/Tunneling No -Circular Undermining No -Wound/Ulcer Outcome Amputation -Ulcer Cleansing Rinsed/ Irrigated with Saline -Foul Odor after Cleansing No -Bioengineered Tissue No -Bleeding Controlled with Pressure -Offloading No -Treatment Response Procedure Tolerated Well -Debridement - Subq, 1st 20sq cm Yes #2- L LAT FOOT POST OP -Correct Patient No -Correct Side, Site, Position No -Correct Procedure No -Procedure Performed No -Post Debridement (cm) - Length 0 -Post Debridement (cm) - Width 0 -Post Debridement (cm) - Depth 0 -Total Square (Post) (cm) 0 -Area of Debridement (cm) - Length 0 -Area of Debridement (cm) - Width 0 -Total Square (Area) (cm) 0 -Wound/Ulcer Outcome Healed- Epithelialized Pain Scale: 0-10 Numeric Is Patient Pain Free? Yes - Nurse 3 - General Ulcer D/C NN Start: 03/31/21 10:37 Freq: Status: Active Protocol: Activity Type Activity Date Activity User E-Sign Co-Sign Detail Recorded Client Recorded Date Recorded By Document 03/31/21 11:10 [facility] [id number] 03/31/21 11:10 [facility] 03/31/21 11:10 Wound Care Nurse 3 #3 left anterior great toe -Ulcer Cleansing Rinsed/ Irrigated with Saline -Foul Odor after Cleansing No -Primary Dressing Applied C Hydrogel ($) -Primary Dressing Covered/Secured with Dry Gauze, Secured with Tape Treatment Response Procedure Tolerated Well Pain Scale: 0-10 Numeric Is Patient Pain Free? 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: CODE(S): Z89.422 - Acquired absence of other left toe(s) (3) Type 2 diabetes mellitus with diabetic polyneuropathy: CODE(S): E11.42 - Type 2 diabetes mellitus with diabetic polyneuropathy QUALIFIERS: Diabetes mellitus penitentiary insulin use: unspecified rodent exterminator insulin use status Qualified Code(s): E11.42 - Type 2 diabetes mellitus with diabetic polyneuropathy (4) Dyspnea on exertion: CODE(S): R06.00 - Dyspnea, unspecified (5) Morbid obesity: CODE(S): E66.01 - Morbid (severe) obesity due to excess calories (6) Type 2 diabetes mellitus: CODE(S): E11.9 - Type 2 diabetes mellitus without complications QUALIFIERS: Diabetes mellitus penitentiary insulin use: with penitentiary use Diabetes mellitus complication status: with neurologic complications Diabetes mellitus complication detail: with polyneuropathy Qualified Code(s): E11.42 - Type 2 diabetes mellitus with diabetic polyneuropathy; Z79.4 - senior care (current) use of insulin (7) Atrial fibrillation: CODE(S): I48.91 - Unspecified atrial fibrillation (8) Diabetes: CODE(S): E11.9 - Type 2 diabetes mellitus without complications QUALIFIERS: Diabetes mellitus type: type 2 Diabetes mellitus rodent exterminator insulin use: with rodent exterminator use Diabetes mellitus complication status: with skin complications Diabetes mellitus complication detail: with foot ulcer Qualified Code(s): E11.621 - Type 2 diabetes mellitus with foot ulcer; L97.509 - Non-pressure chronic ulcer of other part of unspecified foot with unspecified severity; Z79.4 - senior care (current) use of insulin (9) Bilateral leg edema: CODE(S): R60.0 - Localized edema (10) Essential (primary) hypertension: CODE(S): I10 - Essential (primary) hypertension (11) Hyperlipidemia: CODE(S): E78.5 - Hyperlipidemia, unspecified (12) Pickwickian syndrome: CODE(S): E66.2 - Morbid (severe) obesity with alveolar hypoventilation PLAN: Seeing and evaluating patient for the very first time. His medical history has been thoroughly reviewed. The patient has been treated at this facility for a healing left fifth ray amputation from November 2020, and had developed a recent ulceration on the dorsal aspect of the left hallux. Upon evaluation today, however, these sites are completely healed and epithelialized. The patient is to be discharged, and will follow-up henceforth on an as-needed basis. We have discussed the importance of properly fitted footwear, frequent inspection of the feet, proper control of diabetes mellitus, weight control issues, measures to minimize swelling in the lower extremities, etc. Patient has been encouraged to elevate his lower extremities as much as possible. Prolonged idle sitting and standing has been discouraged. Activity has been encouraged. Graduated compression stockings have been prescribed. Patient has been encouraged to fill the prescription and to wear the graft compression stockings on a daily basis. The patient has been encouraged to collaborate with a local used car salesperson for serial monitoring of any foot problems, and for periodic nail clipping. Smoking has been discouraged, and counseling has been provided. Patient is to follow-up henceforth on an as-needed basis. Total time: 34 minutes
== END 2021-04-14 11:16 | disposition home or self-care (01) ==
LOC: WC 10:30
PROVIDERS: PCP Family Medicine; Visit Provider Surgery
DX: E11.621 Type 2 diabetes mellitus with foot ulcer (principal); E11.42 Type 2 diabetes mellitus with diabetic polyneuropathy; L97.522 Non-pressure chronic ulcer of other part of left foot with fat layer exposed; R60.0 Localized edema; E66.2 Morbid (severe) obesity with alveolar hypoventilation; I48.91 Unspecified atrial fibrillation; I10 Essential (primary) hypertension; E78.5 Hyperlipidemia, unspecified; Z68.43 Body mass index [BMI] 50.0-59.9, adult; Z79.4 Long term (current) use of insulin; Z87.891 Personal history of nicotine dependence
CPT/HCPCS: 11042; 99213; G0463

== ENCOUNTER → 2021-05-13 11:09 | Outpatient (CLI) | payer MEDICARE, OTHER, SELFPAY ==
[2021-05-13 11:50] LABS: Absolute Neutrophil Count 4.7 X10^3/uL (2.0-7.7); Basophil# 0.03 X10^3/uL; Basophil% 0.4 % (0-1); Eosinophil# 0.12 X10^3/uL; Eosinophils% 1.6 % (0-5); Hematocrit 42.2 % (40-54); Hemoglobin 13.7 g/dL (13.0-16.5); Lymphocyte % 28.3 % (19-41); Mean Corp Hgb Conc 32.5 g/dL (32-36); Mean Corpuscular Hgb 26.7 pg (27.0-32.0); Mean Corpuscular Volume 82.3 fL (80-94); Mean Platelet Vol. 10.1 fl (6.2-12.0); Monocyte# 0.39 X10^3/uL; Monocyte% 5.2 % (0-10); NRBC Flagged by Analyzer 0 % (0-5); Neutrophil # 4.72 X10^3/uL (2.7-7.7); Neutrophil % 63.6 % (47-70); Platelet Count 185 K/mm3 (150-450); RBC Distribution Width CV 14.6 % (11.6-14.6); RBC Distribution Width SD 43.6 fl (35.1-43.9); Red Blood Count 5.13 M/mm3 (4.6-6.2); White Blood Count 7.4 K/mm3 (4.4-11.0)
[2021-05-13 12:05] LABS: Hemoglobin A1c 10.2 % (3.8-5.6)
[2021-05-13 12:08] LABS: BNP,B-Type NATRIURETIC PEPTIDE 37.7 pg/mL (0-100)
[2021-05-13 12:20] LABS: ALB/GLOB Ratio 0.7 RATIO (0.9-2.4); AST(SGOT) 26 U/L (15-37); Alanine Aminotransfer ALT/SGPT 35 U/L (16-61); Albumin, Serum 2.9 g/dL (3.2-5.0); Alkaline Phosphatase 113 U/L (45-117); Anion Gap 9 (5-15); BUN 13 mg/dL (7-18); BUN/Creat Ratio 16.1 RATIO (10-20); Chloride 99 mmol/L (98-107); Cholesterol 186 mg/dL (200); Creatinine, Serum 0.81 mg/dL (0.70-1.30); EST Glomerular Filtration Rate 101 mL/min (>60); Est Glom Filt Rate - Afr Amer 123 mL/min (>60); Globulin 4.4 g/dL (2.2-4.2); Glucose 254 mg/dL (74-106); High Density Lipoprotein 39 mg/dL; Magnesium 1.9 mg/dL (1.6-2.6); Potassium 4.2 mmol/L (3.5-5.1); Protein, Total 7.3 g/dL (6.4-8.2); Sodium Level 138 mmol/L (136-145); Triglycerides 270 mg/dL; Very Low Density Lipoprotein 54 mg/dL (5-40)
== END ==
PROVIDERS: PCP Family Medicine; Referring Provider Nurse Practitioner Family; Visit Provider Nurse Practitioner Family
DX: E11.69 Type 2 diabetes mellitus with other specified complication (principal); I48.91 Unspecified atrial fibrillation; R06.00 Dyspnea, unspecified
CPT/HCPCS: 36415; 80053; 80061; 83036; 83735; 83880; 85025

== ENCOUNTER 2021-09-11 13:35 | Outpatient (CLI) | payer MEDICARE, OTHER, SELFPAY ==
[2021-09-11 15:32] LABS: Absolute Lymphocyte Count 2.41 X10^3/uL (0.83-4.51); Absolute Neutrophil Count 4.2 X10^3/uL (2.0-7.7); Basophil# 0.04 X10^3/uL; Basophil% 0.5 % (0-1); Eosinophil# 0.16 X10^3/uL; Eosinophils% 2.2 % (0-5); Hematocrit 43.3 % (40-54); Hemoglobin 14.2 g/dL (13.0-16.5); Lymphocyte # 2.41 X10^3/ul (0.83-4.51); Lymphocyte % 33.1 % (19-41); Mean Corp Hgb Conc 32.8 g/dL (32-36); Mean Corpuscular Hgb 27.5 pg (27.0-32.0); Mean Corpuscular Volume 83.9 fL (80-94); Mean Platelet Vol. 10.6 fl (6.2-12.0); Monocyte# 0.48 X10^3/uL; Monocyte% 6.6 % (0-10); NRBC Flagged by Analyzer 0 % (0-5); Neutrophil # 4.16 X10^3/uL (2.7-7.7); Neutrophil % 57.2 % (47-70); Platelet Count 174 K/mm3 (150-450); RBC Distribution Width CV 13.8 % (11.6-14.6); RBC Distribution Width SD 42.2 fl (35.1-43.9); Red Blood Count 5.16 M/mm3 (4.6-6.2); White Blood Count 7.3 K/mm3 (4.4-11.0)
[2021-09-11 15:53] LABS: Hemoglobin A1c 9.5 % (3.8-5.6)
[2021-09-11 16:40] LABS: ALB/GLOB Ratio 0.8 RATIO (0.9-2.4); AST(SGOT) 23 U/L (15-37); Alanine Aminotransfer ALT/SGPT 29 U/L (16-61); Albumin, Serum 3.3 g/dL (3.2-5.0); Alkaline Phosphatase 95 U/L (45-117); Anion Gap 7 (5-15); BUN 17 mg/dL (7-18); BUN/Creat Ratio 25.8 RATIO (10-20); Calcium,Total 8.5 mg/dL (8.5-10.1); Chloride 101 mmol/L (98-107); Cholesterol 174 mg/dL (200); Creatinine, Serum 0.66 mg/dL (0.70-1.30); EST Glomerular Filtration Rate 128 mL/min (>60); Est Glom Filt Rate - Afr Amer 155 mL/min (>60); Ferritin 28 ng/mL (26-388); Globulin 4.1 g/dL (2.2-4.2); Glucose 190 mg/dL (74-106); High Density Lipoprotein 39 mg/dL; Iron 62 ug/dL (65-175); Magnesium 1.8 mg/dL (1.6-2.6); Potassium 3.9 mmol/L (3.5-5.1); Protein, Total 7.4 g/dL (6.4-8.2); Sodium Level 137 mmol/L (136-145); Triglycerides 234 mg/dL; Very Low Density Lipoprotein 47 mg/dL (5-40)
== END 2021-09-11 23:59 | disposition home or self-care (01) ==
LOC: MFPLAB 13:36
PROVIDERS: PCP Family Medicine; Referring Provider Family Medicine; Visit Provider Family Medicine
DX: E11.9 Type 2 diabetes mellitus without complications (principal); I48.91 Unspecified atrial fibrillation; E61.1 Iron deficiency
CPT/HCPCS: 36415; 80053; 80061; 82728; 83036; 83540; 83735; 85025

== ENCOUNTER → 2021-10-26 | Outpatient (CLI) | payer MEDICARE, OTHER, SELFPAY ==
--- NOTE | 2021-10-26 13:46 | US_ITS ---
STUDY: THYROID ULTRASOUND REASON FOR EXAM: Male, 66 years old. THYROID NODULE TECHNIQUE: Ultrasound evaluation of the thyroid was performed with real-time and static duffy-scale imaging. COMPARISON: 11/03/2020 FINDINGS: RIGHT LOBE: The right lobe of the thyroid gland measures 5.6 x 1.9 x 2.5 cm. There is a homogeneous echotexture. There are 2 nodules, one is a partially calcified and one is cystic. Largest of which measures 7 x 8 x 6 mm in the midpole right thyroid lobe. LEFT LOBE: The left lobe of the thyroid gland measures 5.3 x 1.6 x 2.8 cm. There is a homogeneous echotexture. There are no demonstrated solid, cystic or complex lesions. ISTHMUS: The isthmus measures 4 mm. The regional lymph nodes are normal. US/Thyroid IMPRESSION: Development of an additional cystic nodule in the right thyroid lobe with additional stable partially calcified right thyroid lobe nodule. Stable mild thyromegaly. Homogenous echotexture throughout. Recommend yearly follow-up Electronically Signed: Harjit Myrick DO at 5:46 EDT ,
== END | disposition home or self-care (01) ==
LOC: US 13:44
PROVIDERS: PCP Family Medicine; Visit Provider Family Medicine
DX: E04.1 Nontoxic single thyroid nodule (principal)
CPT/HCPCS: 76536

== ENCOUNTER → 2022-01-19 | Outpatient (CLI) | payer MEDICARE, OTHER, SELFPAY ==
[2022-01-19 17:59] LABS: Absolute Lymphocyte Count 2.55 X10^3/uL (0.83-4.51); Absolute Neutrophil Count 5.2 X10^3/uL (2.0-7.7); Basophil# 0.03 X10^3/uL; Basophil% 0.4 % (0-1); Eosinophil# 0.16 X10^3/uL; Eosinophils% 1.9 % (0-5); Hemoglobin 13.9 g/dL (13.0-16.5); Lymphocyte # 2.55 X10^3/ul (0.83-4.51); Mean Corp Hgb Conc 31.6 g/dL (32-36); Mean Corpuscular Volume 85.6 fL (80-94); Mean Platelet Vol. 10.8 fl (6.2-12.0); Monocyte# 0.52 X10^3/uL; Monocyte% 6.1 % (0-10); NRBC Flagged by Analyzer 0 % (0-5); Neutrophil # 5.22 X10^3/uL (2.7-7.7); Neutrophil % 61.2 % (47-70); Platelet Count 207 K/mm3 (150-450); Red Blood Count 5.14 M/mm3 (4.6-6.2); White Blood Count 8.5 K/mm3 (4.4-11.0)
[2022-01-19 18:14] LABS: Hemoglobin A1c 10.3 % (3.8-5.6)
[2022-01-19 18:20] LABS: ALB/GLOB Ratio 0.8 RATIO (0.9-2.4); AST(SGOT) 54 U/L (15-37); Alanine Aminotransfer ALT/SGPT 48 U/L (16-61); Albumin, Serum 3.3 g/dL (3.2-5.0); Alkaline Phosphatase 83 U/L (45-117); Anion Gap 9 (5-15); BUN 15 mg/dL (7-18); BUN/Creat Ratio 18.4 RATIO (10-20); Calcium,Total 9.3 mg/dL (8.5-10.1); Chloride 101 mmol/L (98-107); Cholesterol 200 mg/dL (200); Creatinine, Serum 0.82 mg/dL (0.70-1.30); EST Glomerular Filtration Rate 100 mL/min (>60); Est Glom Filt Rate - Afr Amer 121 mL/min (>60); Ferritin 41 ng/mL (26-388); Globulin 4.3 g/dL (2.2-4.2); Glucose 217 mg/dL (74-106); High Density Lipoprotein 36 mg/dL; Iron 62 ug/dL (65-175); Iron Binding Capacity,Total 351 ug/dL (250-450); Magnesium 1.8 mg/dL (1.6-2.6); Potassium 4.2 mmol/L (3.5-5.1); Protein, Total 7.6 g/dL (6.4-8.2); Sodium Level 137 mmol/L (136-145); Thyroid Stim Hormone (TSH) 1.09 uIU/mL (0.358-3.74); Triglycerides 386 mg/dL; Very Low Density Lipoprotein 77 mg/dL (5-40)
[2022-01-19 18:23] LABS: Microalbumin:Creatinine Ratio 281.7 mg/g CRE (<30 mg/g CRE)
== END | disposition home or self-care (01) ==
LOC: MFPLAB 15:59
PROVIDERS: PCP Family Medicine; Referring Provider Family Medicine; Visit Provider Family Medicine
DX: E61.1 Iron deficiency (principal); E11.9 Type 2 diabetes mellitus without complications
CPT/HCPCS: 36415; 80053; 80061; 82043; 82570; 82728; 83036; 83540; 83550; 83735; 84443; 85025

== ENCOUNTER → 2022-06-16 | Outpatient (CLI) | payer MEDICARE, OTHER, SELFPAY | END | disposition home or self-care (01) | LOC: MFPLAB 15:13 | PROVIDERS: PCP Family Medicine; Referring Provider Family Medicine; Visit Provider Family Medicine | DX: Z00.00 Encounter for general adult medical examination without abnormal findings (principal) ==

== ENCOUNTER → 2022-07-15 | Outpatient (CLI) | payer MEDICARE, OTHER, SELFPAY ==
[2022-07-15 17:44] LABS: Absolute Lymphocyte Count 2.42 X10^3/uL (0.83-4.51); Absolute Neutrophil Count 5.3 X10^3/uL (2.0-7.7); Basophil# 0.05 X10^3/uL; Basophil% 0.6 % (0-1); Eosinophil# 0.16 X10^3/uL; Eosinophils% 1.9 % (0-5); Hemoglobin 14.9 g/dL (13.0-16.5); Lymphocyte # 2.42 X10^3/ul (0.83-4.51); Lymphocyte % 28.2 % (19-41); Mean Corp Hgb Conc 33.1 g/dL (32-36); Mean Corpuscular Hgb 27.7 pg (27.0-32.0); Mean Corpuscular Volume 83.8 fL (80-94); Mean Platelet Vol. 10.7 fl (6.2-12.0); Monocyte# 0.58 X10^3/uL; Monocyte% 6.8 % (0-10); NRBC Flagged by Analyzer 0 % (0-5); Neutrophil # 5.34 X10^3/uL (2.7-7.7); Neutrophil % 62.2 % (47-70); Platelet Count 181 K/mm3 (150-450); RBC Distribution Width CV 14.4 % (11.6-14.6); RBC Distribution Width SD 43.1 fl (35.1-43.9); Red Blood Count 5.37 M/mm3 (4.6-6.2); White Blood Count 8.6 K/mm3 (4.4-11.0)
[2022-07-15 18:08] LABS: Hemoglobin A1c 10.2 % (3.8-5.6)
[2022-07-15 18:11] LABS: ALB/GLOB Ratio 0.8 RATIO (0.9-2.4); AST(SGOT) 18 U/L (15-37); Alanine Aminotransfer ALT/SGPT 27 U/L (16-61); Albumin, Serum 3.1 g/dL (3.2-5.0); Alkaline Phosphatase 100 U/L (45-117); Anion Gap 11 (5-15); BUN 13 mg/dL (7-18); BUN/Creat Ratio 17.3 RATIO (10-20); Calcium,Total 8.7 mg/dL (8.5-10.1); Chloride 100 mmol/L (98-107); Cholesterol 182 mg/dL (200); Creatinine, Serum 0.75 mg/dL (0.70-1.30); EST Glomerular Filtration Rate 110 mL/min (>60); Est Glom Filt Rate - Afr Amer 133 mL/min (>60); Ferritin 40 ng/mL (26-388); Globulin 3.8 g/dL (2.2-4.2); Glucose 258 mg/dL (74-106); High Density Lipoprotein 42 mg/dL; Iron 60 ug/dL (65-175); Iron Binding Capacity,Total 349 ug/dL (250-450); Magnesium 1.7 mg/dL (1.6-2.6); Potassium 4.3 mmol/L (3.5-5.1); Protein, Total 6.9 g/dL (6.4-8.2); Sodium Level 138 mmol/L (136-145); Thyroid Stim Hormone (TSH) 1.81 uIU/mL (0.358-3.74); Triglycerides 236 mg/dL; Very Low Density Lipoprotein 47 mg/dL (5-40)
== END | disposition home or self-care (01) ==
LOC: MFPLAB 14:22
PROVIDERS: PCP Family Medicine; Referring Provider Family Medicine; Visit Provider Family Medicine
DX: Z00.00 Encounter for general adult medical examination without abnormal findings (principal); E11.9 Type 2 diabetes mellitus without complications; E61.1 Iron deficiency
CPT/HCPCS: 36415; 80053; 80061; 82728; 83036; 83540; 83550; 83735; 84443; 85025

== ENCOUNTER → 2022-10-22 | Outpatient (CLI) | payer MEDICARE, OTHER, SELFPAY ==
[2022-10-22 17:40] LABS: Absolute Lymphocyte Count 2.52 X10^3/uL (0.83-4.51); Absolute Neutrophil Count 6.7 X10^3/uL (2.0-7.7); Basophil# 0.06 X10^3/uL; Basophil% 0.6 % (0-1); Eosinophil# 0.25 X10^3/uL; Eosinophils% 2.5 % (0-5); Hematocrit 45.3 % (40-54); Hemoglobin 14.5 g/dL (13.0-16.5); Lymphocyte # 2.52 X10^3/ul (0.83-4.51); Lymphocyte % 24.9 % (19-41); Mean Corpuscular Hgb 27.3 pg (27.0-32.0); Mean Corpuscular Volume 85.2 fL (80-94); Monocyte% 5.9 % (0-10); NRBC Flagged by Analyzer 0 % (0-5); Neutrophil # 6.67 X10^3/uL (2.7-7.7); Neutrophil % 65.8 % (47-70); Platelet Count 193 K/mm3 (150-450); RBC Distribution Width CV 13.5 % (11.6-14.6); RBC Distribution Width SD 41.1 fl (35.1-43.9); Red Blood Count 5.32 M/mm3 (4.6-6.2); White Blood Count 10.1 K/mm3 (4.4-11.0)
[2022-10-22 18:02] LABS: ALB/GLOB Ratio 0.8 RATIO (0.9-2.4); AST(SGOT) 30 U/L (15-37); Alanine Aminotransfer ALT/SGPT 36 U/L (16-61); Albumin, Serum 3.1 g/dL (3.2-5.0); Alkaline Phosphatase 88 U/L (45-117); Anion Gap 8 (5-15); BUN 14 mg/dL (7-18); BUN/Creat Ratio 19.2 RATIO (10-20); Chloride 98 mmol/L (98-107); Cholesterol 170 mg/dL (200); Creatinine, Serum 0.73 mg/dL (0.70-1.30); EST Glomerular Filtration Rate 114 mL/min (>60); Est Glom Filt Rate - Afr Amer 138 mL/min (>60); Ferritin 60 ng/mL (26-388); Globulin 4.1 g/dL (2.2-4.2); Glucose 244 mg/dL (74-106); High Density Lipoprotein 35 mg/dL; Iron 65 ug/dL (65-175); Iron Binding Capacity,Total 308 ug/dL (250-450); Magnesium 1.7 mg/dL (1.6-2.6); Potassium 4.4 mmol/L (3.5-5.1); Protein, Total 7.2 g/dL (6.4-8.2); Sodium Level 136 mmol/L (136-145); Triglycerides 221 mg/dL; Very Low Density Lipoprotein 44 mg/dL (5-40)
[2022-10-22 18:12] LABS: Microalbumin,Random Urine 91.3 mg/L (NO RANGE EST.); Microalbumin:Creatinine Ratio 90.4 mg/g CRE (<30 mg/g CRE)
[2022-10-22 18:29] LABS: Hemoglobin A1c 9.9 % (3.8-5.6)
== END | disposition home or self-care (01) ==
LOC: MFPLAB 15:02
PROVIDERS: PCP Family Medicine; Visit Provider Family Medicine
DX: E11.9 Type 2 diabetes mellitus without complications (principal); E61.1 Iron deficiency
CPT/HCPCS: 36415; 80053; 80061; 82043; 82570; 82728; 83036; 83540; 83550; 83735; 85025

== ENCOUNTER → 2022-11-01 | Outpatient (CLI) | payer MEDICARE, OTHER, SELFPAY ==
--- NOTE | 2022-11-01 12:51 | US_ITS ---
STUDY: THYROID ULTRASOUND REASON FOR EXAM: Male, 67 years old patient with thyroid nodule. TECHNIQUE: Ultrasound evaluation of the thyroid was performed with real-time and static duffy-scale imaging. COMPARISON: Thyroid ultrasound dated October 26, 2021. FINDINGS: RIGHT LOBE: The right lobe of the thyroid gland measures 2.1 x 5.8 x 2.3 cm. There is a heterogeneous echotexture. There is a tiny echogenic lesion within the mid right lobe of the thyroid measuring 5.1 x 3.6 x 4.3 mm. This may represent small calcification. This appears similar to the previous ultrasound. There is a second complex solid and cystic lesion within the lower pole of the right lobe of thyroid measures 1.1 x 1.1 x 1.2 cm. This appears larger than on the previous ultrasound. LEFT LOBE: The left lobe of the thyroid gland measures 2.0 x 5.3 x 2.4 cm. There is a heterogeneous echotexture. There are no demonstrated solid, cystic or complex lesions. ISTHMUS: The isthmus measures 8.9 mm. The regional lymph nodes are normal. US/Thyroid IMPRESSION: Enlarging nodule at the lower pole of the right lobe of the thyroid. TIRADS 2 - Not suspicious: No FNA. Electronically Signed: Lanie Irby MD at 7:07 EDT ,
== END | disposition home or self-care (01) ==
PROVIDERS: PCP Family Medicine; Referring Provider Family Medicine; Visit Provider Family Medicine
DX: E04.1 Nontoxic single thyroid nodule (principal)
CPT/HCPCS: 76536

== ENCOUNTER 2022-11-28 04:27 | Emergency (ER) | payer MEDICARE, OTHER, SELFPAY ==
[2022-11-28 04:28] VITALS: BP 160/89; PULSE 110; RESP 20; TEMP 36.6; O2SAT 93; BMI 60.2
--- NOTE | 2022-11-28 04:49 | CT_ITS ---
EXAM: CT HEAD WITHOUT INTRAVENOUS CONTRAST CLINICAL INDICATION: head injury head injury TECHNIQUE: Multiple axial images were obtained of the head without intravenous contrast. This CT exam was performed using one or more of the following dose reduction techniques: automated exposure control, adjustment of the mA and/or kV according to patient size, and/or use of iterative reconstruction technique. RADIATION DOSE: CTDIvol = 44.99 mGy, DLP = 846.73 mGy-cm COMPARISON: No relevant prior studies available. FINDINGS: BRAIN AND EXTRA-AXIAL SPACES: There is mild cerebral atrophy. No intra- or extra-axial hemorrhage. No evidence of acute infarct. No intracranial mass or mass effect. There is preservation of the duffy/white matter interface. Posterior fossa structures are unremarkable. No hydrocephalus. Basal cisterns are patent. BONES/JOINTS: Unremarkable. No discrete lytic or blastic abnormalities. SINUSES: Unremarkable as visualized. Clear. MASTOID AIR CELLS: Unremarkable. Clear. ORBITS: Visualized globes, extraocular muscles, optic nerves and retrobulbar fat appear unremarkable. CT/Brain/Head without Contrast IMPRESSION: 1. Mild chronic involutional changes of the brain. 2. No demonstrated acute intracranial process. Electronically Signed: Noe Barcenas MD at 6:04 EDT Reading Location ID and State: [facility] / [place] , Service support ,
--- NOTE | 2022-11-28 05:30 | RAD_ITS ---
EXAM: XR LEFT KNEE, 3 VIEWS CLINICAL INDICATION: pain pain TECHNIQUE: Three views of the left knee. COMPARISON: X-ray left knee 02/11/2017 FINDINGS: BONES/JOINTS: There is a 1 cm defect in the articular surface of the medial femoral condyle, was not present on previous exam. This probably represents a focus of osteochondrosis dissecans. 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 There is [id number] degenerative arthrosis of the femorotibial articulation. No acute fracture. No subluxation. Normal alignment. No sclerotic or destructive changes observed. SOFT TISSUES: Unremarkable. No soft tissue swelling or gas. No radiopaque foreign body. RAD/Knee 3 Views IMPRESSION: 1. Hkoeymvw-ot-xwdxbi degenerative arthrosis. 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 2. No demonstrated acute fracture, dislocation, or destructive osseous lesion. Electronically Signed: Noe Barcenas MD at 6:31 EDT ,
--- NOTE | 2022-11-28 07:04 | EX.ED.DYSGE1 ---
HPI History of Present Illness Chief Complaint: Fall Informant: patient and EMS Narrative Narrative: Patient is a 67-year-old male with past medical history of paroxysmal atrial fibrillation currently on Eliquis as well as hypertension type 2 diabetes and morbid obesity. He states has been having left knee pain for multiple months and that he feels like his family doctor has not done an thing for it. He states that this evening/morning he got out of bed and lost his balance and fell and hit his head on the doorknob. He denies any loss of consciousness and states that he had difficulty getting up following the fall. Secondary to his EMS was called. EMS was able to help the patient up and recommended patient come to the hospital secondary to his history of blood thinner use and head trauma. Reported the patient was not worried about the head injury but had concerned about his persistent left knee pain that is been there for multiple months and therefore requested transport. [facility] Medical History Alcohol use Ambulates with cane Anxiety Arthritis Atrial fibrillation Bilateral leg edema BiPAP (biphasic positive airway pressure) dependence [facility] Cardiology follow-up encounter Depression Diabetes Dietary restriction Essential (primary) hypertension Former smoker History of echocardiogram History of edema History of pain when walking History of ulceration HTN (hypertension) Hyperlipidemia Insulin dependent diabetes mellitus Leg cramps Low iron Lower extremity neuropathy Morbid obesity New onset atrial fibrillation (10/01/20) Obstructive sleep apnea Pickwickian syndrome Restless legs Shortness of breath on exertion Thyroid nodule Type 2 diabetes mellitus Wears glasses Home Medications losartan 100 mg tablet 100 mg PO QHS 04/04/14 [History Last Taken 12/03/20] metformin 1,000 mg tablet 1,000 mg PO BIDCM 04/04/14 [History Last Taken 12/03/20] amlodipine 5 mg tablet 5 mg PO QHS 10/01/20 [History Last Taken 12/03/20] pbcucmti-nda-ccsme acid 300 mcg-lycopene 600 mcg-lutein 300 mcg tablet 1 tablet PO DAILY supplemetn 10/01/20 [History Last Taken 09/30/20] acetaminophen 500 mg tablet 500 mg PO Q6H PRN Pain 12/03/20 [History Last Taken 12/03/20] metoprolol succinate 100 mg tablet,extended release 24 hr (Toprol XL) 100 mg PO QHS 12/03/20 [History Last Taken 12/03/20] apixaban 5 mg tablet 5 mg PO BID #180 tabs 03/12/22 [Rx Last Taken Unknown] ferrous sulfate 325 mg (65 mg iron) tablet (FeroSul) 325 mg PO DAILY 03/12/22 [History Last Taken 04/26/22] gabapentin 600 mg tablet 600 mg PO TID 09/27/22 [History Last Taken Unknown] insulin glargine U-300 conc 300 unit/mL (3 mL) subcutaneous pen (Toujeo Max U-300 SoloStar) 50 unit subcut QHS 09/27/22 [History Last Taken Unknown] oxycodone-acetaminophen 5 mg-325 mg tablet (Percocet) 1 tab PO Q6H PRN pain 3 days #12 tabs 11/28/22 [Rx Last Taken Unknown] Allergy/AdvReac Type Severity Reaction Status Date / Time ampicillin Allergy Unknown Verified 11/28/22 04:32 peanut Allergy NEEDS Verified 11/28/22 04:32 FOLLOW-UP Penicillins Allergy Unknown Verified 11/28/22 04:32 Family History Mother Heart disease Diabetes Father Heart disease Cancer Surgical History History of amputation of toe History of wisdom tooth extraction Social History Smoking Status: Former smoker how long ago did patient quit smokin alcohol intake: never substance use type: does not use caffeine: Yes ROS ROS ED Constitutional Constitutional ED: Denies chills or fever(s) Eyes Eyes: Denies blurry vision or change in vision ENT ENT ED: Denies sore throat Cardiovascular Cardiovascular: Denies chest pain Respiratory/Chest Respiratory/Chest: Denies cough or dyspnea Gastrointestinal Gastrointestinal: Denies abdominal pain, diarrhea, nausea or vomiting Genitourinary Genitourinary ED: Denies dysuria Musculoskeletal Musculoskeletal: Reports other Details: Positive left knee pain ; Denies back pain or neck pain Integumentary Denies Abrasions or rash Neurologic Neurologic: Denies headache(s) Hematologic/Lymphatic Hematologic/Lymphatic: Reports easy bleeding and easy bruising EXAM Physical Exam Const Vital Signs: 11/28/22 04:28 11/28/22 04:30 11/28/22 07:32 Temperature 98 F 97.9 F Temperature Source Temporal Pulse Rate 110 H 81 Respiratory Rate 20 H 16 Respiratory Effort Normal Respiratory Depth Normal Respiratory Pattern Normal Blood Pressure 160/89 H 138/84 H Blood Pressure Mean 112 Pulse Ox 93 98 Oxygen Delivery Method Room Air Room Air Positive well nourished, well developed and obese General Appearance ED: well developed Nutritional Appearance: obese HEENT HEENT Narrative: Normocephalic atraumatic No signs of depressed or basilar skull fracture Eyes PERRL and EOMs intact bilaterally Neck supple Neck Narrative: No midline pain on palpation no bony deformity or step-off of the cervical spine Chest Wall palpation of chest normal Chest Narrative: No bony deformity or crepitance of the chest wall Resp normal respiratory effort and clear to auscultation bilaterally Resp Narrative: Breath sounds are diminished throughout without respiratory distress symptoms Cardio regular rate and regular rhythm GI normal to inspection, nondistended, normoactive bowel sounds, non-tender, non-distended and no masses GI Narrative: Abdomen is obese soft nontender nondistended with normal active bowel sounds no voluntary guarding or rigidity no pulsatile mass Auscultation: normoactive bowel sounds Palpation: soft Back/Spine Back/Spine Narrative: No bony deformity or step-off of the thoracic or lumbar spine no midline pain on palpation Extremity Extremity Narrative: Has chronic edema with chronic stasis changes to his lower extremities bilaterally. There is no obvious bony deformity or joint effusion. Negative Homans' sign bilaterally. No overlying asymmetric erythema or warmth to suggest infection. Patient has pain with palpation of his left knee diffusely but greatest over top the medial and lateral meniscus as well as the lateral aspect of the knee. Patient does have increased pain with stressing of the LCL of the left compared to right but there is no obvious laxity present. Neuro oriented x3 and CN's II-XII intact bilaterally Sensorium / Orientation: alert Psych Psych Narrative: Patient has a flat affect Skin Skin Narrative: Chronic stasis changes of the bilateral lower legs as documented above without signs of secondary infection MDM MDM MDM Narrative Medical decision making narrative: Patient presented to the ER after mechanical fall and therefore I felt there is no need for cardiac or syncope work-up. He does take Eliquis secondary to paroxysmal A-fib and as he struck his head differential diagnosis includes skull fracture versus subdural or epidural hematoma. Secondary to this a head CT was obtained which revealed no acute findings. Patient reported he has had left knee pain for multiple months. His exam questions injury to the meniscus as he has pain with palpation over top the medial and lateral meniscus as well as possible LCL sprain as there is pain on palpation at this site as well as increased pain with ligamentous test. However there is no obvious signs of joint effusion or joint infection or gout and no signs of patellar tendon injury. Therefore I felt only need for an x-ray at this time based on his physical exam showing no changes concerning for DVT or acute infectious process. This showed osteoarthritic changes which does correlate with his age and morbid obesity. The patient was able to ambulate to and from the bathroom with a walker and he states he does have a walker at home. Therefore at this time as the patient is able to ambulate he does not have infectious changes based on his exam and his imaging reveals no acute traumatic findings he is otherwise safe for discharge History & Record Review Discussion w/independent historian: EMS personnel and Patient Radiography Diagnostic Testing: Clinical Impression(s) from Imaging Studies Brain CT 11/28/22 04:49 IMPRESSION: 1. Mild chronic involutional changes of the brain. 2. No demonstrated acute intracranial process. Electronically Signed: Noe Barcenas MD at 6:04 EDT , Knee X-Ray 11/28/22 05:30 IMPRESSION: 1. Bcflpqph-nu-txpddh degenerative arthrosis. 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 2. No demonstrated acute fracture, dislocation, or destructive osseous lesion. Electronically Signed: Noe Barcenas MD at 6:31 EDT , X-ray of the left knee as interpreted by the emergency medicine physician reveals osteoarthritic changes without acute fracture or dislocation or joint effusion Discharge Plan Triage Chief Complaint: Fall ED Provider: Josr Muñoz Dx/Rx/DC Orders Clinical Impression: Closed head injury, Current use of detention anticoagulation, Osteoarthritis of left knee, Diabetes, Essential (primary) hypertension, Atrial fibrillation Instructions: Knee Osteoarthritis Prescriptions: New oxycodone-acetaminophen [Percocet] 5-325 mg tablet 1 tab PO Q6H PRN (Reason: pain) 3 Days Qty: 12 0RF No Action Toujeo Max U-300 SoloStar 300 unit/mL (3 mL) insulin pen 50 unit subcut QHS ferrous sulfate [FeroSul] 325 mg (65 mg iron) tablet 325 mg PO DAILY Label Comments: TAKE 1 TABLET BY MOUTH TWICE DAILY apixaban 5 mg tablet 5 mg PO BID Qty: 180 3RF gabapentin 600 mg tablet 600 mg PO TID Label Comments: TAKE 1 TABLET BY MOUTH THREE TIMES DAILY metformin 1,000 MG tablet 1,000 mg PO BIDCM losartan 100 MG tablet 100 mg PO QHS amlodipine 5 MG tablet 5 mg PO QHS mzdcqiyj-xob-JL-lycopen-lutein 1 EACH tablet 1 tablet PO DAILY metoprolol succinate [Toprol XL] 100 mg Tablet Extended Release 24 Hr 100 mg PO QHS acetaminophen 500 mg Tablet 500 mg PO Q6H PRN (Reason: Pain) Primary Care Provider: Bernabe Reese Referrals: Bernabe Reese MD [Primary Care Provider] - Geovany Boston MD [Med Staff - Active Staff] - Activity Restrictions/Additional Instructions: Continue to use her walker to help with ambulation and follow-up with orthopedics to discuss need for further testing or treatment options regarding your recurrent left knee pain. Disposition Disposition: Home, Self Care Discharge Date/Time: 11/28/22 07:44
[2022-11-28 07:32] VITALS: BP 138/84; PULSE 81; RESP 16; TEMP 36.6; O2SAT 98
== END 2022-11-28 07:44 | disposition home or self-care (01) ==
PROVIDERS: Emergency Provider Emergency Medicine; PCP Family Medicine; Visit Provider Emergency Medicine
DX: S09.90XA Unspecified injury of head, initial encounter (principal); E11.40 Type 2 diabetes mellitus with diabetic neuropathy, unspecified; I48.0 Paroxysmal atrial fibrillation; E66.01 Morbid (severe) obesity due to excess calories; M17.12 Unilateral primary osteoarthritis, left knee; I10 Essential (primary) hypertension; Z87.891 Personal history of nicotine dependence; E78.5 Hyperlipidemia, unspecified; Z79.01 Long term (current) use of anticoagulants; W19.XXXA Unspecified fall, initial encounter
CPT/HCPCS: 70450; 73562; 99284

== ENCOUNTER 2022-11-28 09:28 | Inpatient (IN) | payer MEDICARE, OTHER, SELFPAY ==
[2022-11-28] VITALS (22 sets, daily range): BP systolic 114–175; BP diastolic 63–110; PULSE 89–145; RESP 14–28; TEMP 36.8–37.7; O2SAT 91–98; BMI 58.0; BMI 57.9
--- NOTE | 2022-11-28 09:53 | CT_ITS ---
STUDY: CT BRAIN WITHOUT CONTRAST REASON FOR EXAM: Male, 67 years old. Confused, recurrent falls RADIATION DOSAGE (If Supplied By Facility): CTDIvol = ( 44.99 ) mGy, DLP = ( 863.60 ) mGycm TECHNIQUE: Transaxial CT imaging of the brain was performed without administration of intravenous contrast material. Individualized dose optimization techniques were used for this CT. COMPARISON: No relevant priors. FINDINGS: Normal soft tissue structures. Normal calvarium. There is mild cerebral atrophy with widening of the extra-axial spaces and ventricular dilatation. Normal white matter tracts of the cerebral hemispheres. Normal basal ganglia and thalami. Normal brainstem. Normal cerebellum. There is no intracranial hemorrhage. There are no findings of an acute ischemic infarction. Normal visualized paranasal sinuses. CT/Brain/Head without Contrast IMPRESSION: Chronic involutional changes of the brain. Electronically Signed: Kwame Car MD at 11:36 EDT ,
--- NOTE | 2022-11-28 09:53 | EKG12_ITS ---
Test Reason : FALL Blood Pressure : / mmHG Vent. Rate : 136 BPM Atrial Rate : 000 BPM P-R Int : 000 ms QRS Dur : 096 ms QT Int : 268 ms P-R-T Axes : 000 014 175 degrees QTc Int : 403 ms Atrial fibrillation with rapid ventricular response with premature ventricular or aberrantly conducte d complexes Nonspecific ST and T wave abnormality Abnormal ECG Confirmed by LEE STERLING, LEONARDO ([id number]), medical editor KEVEN MOORE ([id number]) on 11/30/2022 7:48:09 AM Referred By: Confirmed By:BRIGIDA HOWARD MD
--- NOTE | 2022-11-28 09:56 | EDS_ITS ---
HPI HPI - Fall History of Present Illness Chief Complaint: Fall Informant: patient and EMS Occured/Mechanism Occurred: Today Mechanism/Context: Yes same level fall Usually ambulates: Without assistance Pain/Injury Pain Location: lower extremity Quality of Pain: Dull and Aching Current Severity: Mild Maximum Severity: Mild Narrative Narrative: 2-year-old male history of diabetes, alcohol use, A-fib on chronic blood thinner Eliquis. Was reportedly seen her last night due to a fall at home when he fell getting out of bed said he injured his knee. X-ray was obtained and showed arthritis he was discharged home. Reportedly when he got home he fell in his garage. In the was brought back in by squad. Patient seems confused. He is a limited informant. He reportedly lives alone at home. Prior similar symptoms: Yes Recent Illness/Hospitalization: No PFSH PFSH Medical History Alcohol use Ambulates with cane Anxiety Arthritis Atrial fibrillation Bilateral leg edema BiPAP (biphasic positive airway pressure) dependence Blackout Cardiology follow-up encounter Depression Diabetes Dietary restriction Essential (primary) hypertension Former smoker History of echocardiogram History of edema History of pain when walking History of ulceration HTN (hypertension) Hyperlipidemia Insulin dependent diabetes mellitus Leg cramps Low iron Lower extremity neuropathy Morbid obesity New onset atrial fibrillation (10/01/20) Obstructive sleep apnea Pickwickian syndrome Restless legs Shortness of breath on exertion Thyroid nodule Type 2 diabetes mellitus Wears glasses Home Medications losartan 100 mg tablet 100 mg PO QHS 04/04/14 [History Last Taken 12/03/20] metformin 1,000 mg tablet 1,000 mg PO BIDCM 04/04/14 [History Last Taken 12/03/20] amlodipine 5 mg tablet 5 mg PO QHS 10/01/20 [History Last Taken 12/03/20] bxrkghik-fzx-jjvrc acid 300 mcg-lycopene 600 mcg-lutein 300 mcg tablet 1 tablet PO DAILY supplemetn 10/01/20 [History Last Taken 09/30/20] acetaminophen 500 mg tablet 500 mg PO Q6H PRN Pain 12/03/20 [History Last Taken 12/03/20] metoprolol succinate 100 mg tablet,extended release 24 hr (Toprol XL) 100 mg PO QHS 12/03/20 [History Last Taken 12/03/20] apixaban 5 mg tablet 5 mg PO BID #180 tabs 03/12/22 [Rx Last Taken Unknown] ferrous sulfate 325 mg (65 mg iron) tablet (FeroSul) 325 mg PO DAILY 03/12/22 [History Last Taken 04/26/22] gabapentin 600 mg tablet 600 mg PO TID 09/27/22 [History Last Taken Unknown] insulin glargine U-300 conc 300 unit/mL (3 mL) subcutaneous pen (Toujeo Max U- 300 SoloStar) 50 unit subcut QHS 09/27/22 [History Last Taken Unknown] oxycodone-acetaminophen 5 mg-325 mg tablet (Percocet) 1 tab PO Q6H PRN pain 3 days #12 tabs 11/28/22 [Rx Last Taken Unknown] Allergy/AdvReac Type Severity Reaction Status Date / Time ampicillin Allergy Unknown Verified 11/28/22 04:32 peanut Allergy NEEDS Verified 11/28/22 04:32 FOLLOW-UP Penicillins Allergy Unknown Verified 11/28/22 04:32 Family History Mother Heart disease Diabetes Father Heart disease Cancer Surgical History History of amputation of toe History of wisdom tooth extraction Social History Smoking Status: Former smoker how long ago did patient quit smokin alcohol intake: never substance use type: does not use caffeine: Yes ROS ROS ED ROS Narrative Limited informant due to his mental status. Review of Systems ROS Unobtainable: due to mental status EXAM Physical Exam Narrative Exam Narrative: 67-year-old male vital signs are stable he is a temperature nine 9.8. His pulse ox is 93% on room air no hypoxia. In the room alone. He does not have any family present. He is confused and a limited informant. HEENT exam pupils round reactive light. No signs of trauma to his face or scalp. Nontender. Neck nontender. Trachea midline. No lymphadenopathy. Lungs clear to auscultation bilaterally. Heart tachycardic rate about 120 no murmur. Chest wall nontender. Abdomen morbidly obese soft nontender normal bowel sounds no peritoneal signs. Moving all 4 extremities. Chronic bilateral lower extremity edema. Neurologically he is awake. His eyes are open. He is a very limited informant. He appears confused. He is moving all 4 extremities. He does not know where he is at. He is not a very good informant. Const Vital Signs: 11/28/22 09:29 11/28/22 09:50 11/28/22 10:28 Temperature 99.8 F H Temperature Source Temporal Pulse Rate 120 H Respiratory Rate 20 H Blood Pressure 138/88 H Blood Pressure Mean 104 Pulse Ox 93 92 Oxygen Delivery Method Room Air Nasal Cannula Nasal Cannula Oxygen Flow Rate (L/min) 2 2 Positive well nourished, well developed and obese; Negative for cachectic, contractures or unkempt General Appearance ED: well developed; Negative for unkempt, cachectic or contractures Nutritional Appearance: obese; Negative for cachectic HEENT Reports normocephalic atraumatic; Negative for trauma or contusion Eyes PERRL and EOMs intact bilaterally General Eye ED: Negative for pale conjunctiva or scleral icterus Neck full ROM, no lymphadenopathy and supple General: Negative for tenderness Chest Wall inspection of chest normal and palpation of chest normal Chest: Negative for other Resp normal respiratory effort, no retractions and clear to auscultation bilaterally Auscultation: Negative for rales or wheezes Cardio S1 normal heart sound, S2 normal heart sound and no murmurs; Negative for regular rate or regular rhythm Cardio Narrative: A-fib RVR rate of 120-130. Rate: tachycardic GI non-tender, non-distended and no masses Inspection: Negative for abdominal distention Auscultation: normoactive bowel sounds Palpation: soft; Negative for guarding Back/Spine no CVA tenderness General Back: Negative for CVA tenderness Cervical Spine: Negative for cervical spine tenderness Lumbar Spine / Lower Back: Negative for lumbar spinal tenderness Neuro No oriented x3, CN's II-XII intact bilaterally, moves all extremities and no focal motor deficits Sensorium / Orientation: oriented to person, orientation impaired and confused; Negative for oriented to place or oriented to time Motor Exam: Negative for strength 5/5 throughout Psych thought process normal Appearance: Negative for unkempt Attitude: No agitated Mood & Affect: Negative for anxious or tearful Skin General Skin Exam: Negative for other Lesions: no lesions Rashes: no rashes Trauma: Negative for abrasion MDM MDM MDM Narrative Medical decision making narrative: 67-year-old gentleman was seen earlier this morning due to a fall at home was discharged back home fell again and was brought back in. He seems confused. Is a temperature 99.8. This may be from underlying infection versus other etiologies. I will get a septic work-up. Also get a CAT scan of his head he is on chronic blood thinners. Chest x-ray and labs. Most likely will need to be admitted. Repeat exam unchanged. He still has a decreased mental status. He is awake. His eyes are open. He is in A-fib RVR be started on a Cardizem drip. This should titrate his rate and help with his elevated blood pressure. His urine is pending but grossly it looks like it is infected. He will be written for IV Rocephin. I will speak to the hospitalist about admission. Discussed the patient's care with the hospitalist. At this time will be admitted to the PCU. History & Record Review Discussion w/independent historian: EMS personnel and Patient Additional record(s) reviewed:: Prior inpatient record, Prior outpatient record, Prior ED visit and Prior labs Lab Data Attestation: I reviewed the patient's lab results. Lab results narrative: CBC shows elevated white count 16.6. H&H 14 and 46. Platelets 152. PT/INR PTT is 17, 128. Unremarkable. Electrolytes show sodium 128. Gap of 10 normal BUN and creatinine are 12 and 0.9. Glucose is elevated at 331. He is a known diabetic. Liver enzymes are unremarkable. CPK is elevated at 544. Lactic acid is 2. Alcohol is negative. Urine is infected with greater than 100 white cells, 3+ bacteria no nitrates. Culture will be sent. Labs: Laboratory Results - last 24 hr 11/28/22 11/28/22 11/28/22 10:12 10:12 10:12 WBC 16.6 H RBC 5.37 Hgb 14.8 Hct 46.6 MCV 86.8 MCH 27.6 MCHC 31.8 L RDW Std Deviation 43.2 RDW Coeff of Jada 13.7 Plt Count 152 MPV 10.3 Immature Gran % (Auto) 0.900 Neut % (Auto) 88.3 H Lymph % (Auto) 5.7 L [place] % (Auto) 4.6 Eos % (Auto) 0.0 Baso % (Auto) 0.5 Absolute Neuts (auto) 14.6 H Absolute Lymphs (auto) 0.95 Nucleated RBC % 0 PT 17.1 H INR 1.4 APTT 28.2 Sodium 132 L Potassium 3.9 Chloride 99 Carbon Dioxide 23.0 Anion Gap 10 BUN 12 Creatinine 0.93 Estim Creat Clear Calc 73.55 Est GFR (MDRD) Af Amer 104 Est GFR (MDRD) Non-Af 86 BUN/Creatinine Ratio 12.9 Glucose 331 H Lactic Acid Calcium 8.7 Total Bilirubin 1.10 H AST 38 H ALT 26 Alkaline Phosphatase 92 Total Creatine Kinase 544 H Troponin I High Sens 36 Total Protein 7.6 Albumin 3.2 Globulin 4.4 H Albumin/Globulin Ratio 0.7 L Urine Color Urine Clarity Urine pH Ur Specific [place] Urine Protein Urine Glucose (UA) Urine Ketones Urine Occult Blood Urine Nitrite Urine Bilirubin Urine Urobilinogen Ur Leukocyte Esterase Urine RBC Urine WBC Ur Squamous Epith Cells Urine Bacteria Urine Mucus Ethyl Alcohol POC Glucose 11/28/22 11/28/22 11/28/22 10:12 10:22 10:32 WBC RBC Hgb Hct MCV MCH MCHC RDW Std Deviation RDW Coeff of Jada Plt Count MPV Immature Gran % (Auto) Neut % (Auto) Lymph % (Auto) [place] % (Auto) Eos % (Auto) Baso % (Auto) Absolute Neuts (auto) Absolute Lymphs (auto) Nucleated RBC % PT INR APTT Sodium Potassium Chloride Carbon Dioxide Anion Gap BUN Creatinine Estim Creat Clear Calc Est GFR (MDRD) Af Amer Est GFR (MDRD) Non-Af BUN/Creatinine Ratio Glucose Lactic Acid 2.0 Calcium Total Bilirubin AST ALT Alkaline Phosphatase Total Creatine Kinase Troponin I High Sens Total Protein Albumin Globulin Albumin/Globulin Ratio Urine Color Urine Clarity Urine pH Ur Specific [place] Urine Protein Urine Glucose (UA) Urine Ketones Urine Occult Blood Urine Nitrite Urine Bilirubin Urine Urobilinogen Ur Leukocyte Esterase Urine RBC Urine WBC Ur Squamous Epith Cells Urine Bacteria Urine Mucus Ethyl Alcohol < 3.0 POC Glucose 340 H 11/28/22 11:52 WBC RBC Hgb Hct MCV MCH MCHC RDW Std Deviation RDW Coeff of Jada Plt Count MPV Immature Gran % (Auto) Neut % (Auto) Lymph % (Auto) [place] % (Auto) Eos % (Auto) Baso % (Auto) Absolute Neuts (auto) Absolute Lymphs (auto) Nucleated RBC % PT INR APTT Sodium Potassium Chloride Carbon Dioxide Anion Gap BUN Creatinine Estim Creat Clear Calc Est GFR (MDRD) Af Amer Est GFR (MDRD) Non-Af BUN/Creatinine Ratio Glucose Lactic Acid Calcium Total Bilirubin AST ALT Alkaline Phosphatase Total Creatine Kinase Troponin I High Sens Total Protein Albumin Globulin Albumin/Globulin Ratio Urine Color Yellow Urine Clarity Cloudy Urine pH 5.0 Ur Specific [place] 1.020 Urine Protein 100 H Urine Glucose (UA) 1000 H Urine Ketones 150 A* Urine Occult Blood 250 H Urine Nitrite Negative Urine Bilirubin Negative Urine Urobilinogen Normal Ur Leukocyte Esterase 500 H Urine RBC 10-25 SEEN Urine WBC >100 SEEN Ur Squamous Epith Cells 0-5 SEEN Urine Bacteria 3+ Urine Mucus 0 SEEN Ethyl Alcohol POC Glucose Radiography Chest X-Ray - ED: Read by ED Physician, Read by Radiologist, Normal, Lungs, Mediastinum, Bony Structures, No Acute Disease, Chronic Changes and Cardiomegaly Diagnostic Testing: Clinical Impression(s) from Imaging Studies Brain CT 11/28/22 09:53 IMPRESSION: Chronic involutional changes of the brain. Electronically Signed: Kwame Car MD at 11:36 EDT , Chest X-Ray 11/28/22 10:50 IMPRESSION: Cardiac enlargement. No focal infiltrate or edema. Electronically Signed: Kawme Car MD at 11:31 EDT , Chest x-ray, portable, single view interpreted both by myself and the radiologist. She has chronic changes. Cardiomegaly. No acute process. CT of the brain shows no acute intracranial event. Read by the radiologist and reviewed by me. Chronic changes. Rhythm Strip Rhythm Strip: A-fib Rate: 136 Ectopy: None EKG Initial EKG: Attestation: I personally reviewed and interpreted this EKG as follows: Interpretation: Atrial Fibrillation Comments: A-fib with rapid ventricular rate of 136. Frequent PVCs. No acute signs of MD. Critical Care Time Critical Care Time: Yes Critical care time (excluding procedures): 30-74 minutes, Including time spent:, Discussing w/Patient &/or Family/Blow Machine Tender Starch Spraying, Discussing w/Consultants, Arranging Admission or Transfer and Performing Direct Patient Care at Bedside Discharge Plan Dx/Rx/DC Orders Clinical Impression: Fall, Acute confusion, Chronic anticoagulation, Acute UTI, Leukocytosis, Atrial fibrillation with RVR, Hyperglycemia due to diabetes mellitus Disposition Disposition: Acute Care [facility]
--- NOTE | 2022-11-28 09:59 | ED.RN ---
CRISIS CALLED AND STATED THAT [facility] WILL ACCEPT BUT TRANSPORT CANT BE SET UP UNTIL TOMORROW 11/29 AT 8AM.
[2022-11-28 10:23] LABS: Absolute Lymphocyte Count 0.95 X10^3/uL (0.83-4.51); Absolute Neutrophil Count 14.6 X10^3/uL (2.0-7.7); Basophil# 0.08 X10^3/uL; Basophil% 0.5 % (0-1); Hematocrit 46.6 % (40-54); Hemoglobin 14.8 g/dL (13.0-16.5); Lymphocyte # 0.95 X10^3/ul (0.83-4.51); Lymphocyte % 5.7 % (19-41); Mean Corp Hgb Conc 31.8 g/dL (32-36); Mean Corpuscular Hgb 27.6 pg (27.0-32.0); Mean Corpuscular Volume 86.8 fL (80-94); Mean Platelet Vol. 10.3 fl (6.2-12.0); Monocyte# 0.76 X10^3/uL; Monocyte% 4.6 % (0-10); NRBC Flagged by Analyzer 0 % (0-5); Neutrophil # 14.63 X10^3/uL (2.7-7.7); Neutrophil % 88.3 % (47-70); Platelet Count 152 K/mm3 (150-450); RBC Distribution Width CV 13.7 % (11.6-14.6); RBC Distribution Width SD 43.2 fl (35.1-43.9); Red Blood Count 5.37 M/mm3 (4.6-6.2); White Blood Count 16.6 K/mm3 (4.4-11.0)
[2022-11-28 10:28] LABS: International Normalized Ratio 1.4; Prothrombin Time (Protime)PT. 17.1 SECONDS (11.7-14.9)
[2022-11-28 10:29] LABS: Partial Thromboplast Time 28.2 Seconds (24.1-36.2)
[2022-11-28] MEDS: 0.9% Normal Saline 1,000 ML 999 ML IV (10:38)
[2022-11-28 10:49] LABS: ALB/GLOB Ratio 0.7 RATIO (0.9-2.4); AST(SGOT) 38 U/L (15-37); Alanine Aminotransfer ALT/SGPT 26 U/L (16-61); Albumin, Serum 3.2 g/dL (3.2-5.0); Alkaline Phosphatase 92 U/L (45-117); Anion Gap 10 (5-15); BUN 12 mg/dL (7-18); BUN/Creat Ratio 12.9 RATIO (10-20); CPK Total, Creatine Kinase 544 U/L (39-308); Calcium,Total 8.7 mg/dL (8.5-10.1); Chloride 99 mmol/L (98-107); Creatinine, Serum 0.93 mg/dL (0.70-1.30); EST Glomerular Filtration Rate 86 mL/min (>60); Est Glom Filt Rate - Afr Amer 104 mL/min (>60); Estimated Creatinine Clearance 73.55 ml/min; Globulin 4.4 g/dL (2.2-4.2); Glucose 331 mg/dL (74-106); Potassium 3.9 mmol/L (3.5-5.1); Protein, Total 7.6 g/dL (6.4-8.2); Sodium Level 132 mmol/L (136-145); Troponin-I HS 36 pg/mL (3.0-78.0)
--- NOTE | 2022-11-28 10:50 | RAD_ITS ---
STUDY: X-RAY CHEST REASON FOR EXAM: Male, 67 years old. Confused TECHNIQUE: Single AP portable view of the chest. COMPARISON: October 01, 2020 FINDINGS: The lungs are clear and expanded. There is no demonstrated pleural abnormality. There is mild cardiac enlargement. Normal mediastinum and liban. Normal visualized pulmonary arteries. Normal visualized aortic arch and descending thoracic aorta. There are diffuse degenerative changes of the visualized thoracic spine. Normal visualized ribs, clavicles, and shoulders. There is no demonstrated abnormality of the visualized soft tissue structures of the upper abdomen. RAD/Chest 1 View (Portable) IMPRESSION: Cardiac enlargement. No focal infiltrate or edema. Electronically Signed: Kwame Car MD at 11:31 EDT ,
[2022-11-28 10:52] LABS: Bedside Glucose 340 mg/dL (74-106)
[2022-11-28 11:01] LABS: Alcohol, Blood (Medical)-Serum < 3.0 mg/dL
[2022-11-28 11:55] LABS: Mucous, Urine 0 SEEN /hpf (<or=2+)
[2022-11-28 11:57] LABS: Color, Urine Yellow (Yellow); Glucose, Dipstick 1000 mg/dl (Normal); Leukocyte Esterase-Dipstick 500 /ul (Negative); Nitrite-Dipstick Negative (Negative); Occult Blood-Urine 250 /ul (Negative); Protein-Dipstick 100 mg/dl (Negative); Urine Bilirubin Dipstick Negative (Negative); Urine Clarity Cloudy (Clear); Urine Urobilinogen Normal (Normal)
[2022-11-28 12:01] LABS: Ketone-Dipstick 150 mg/dl (Negative)
[2022-11-28 12:04] LABS: Bacteria 3+ /hpf (None Seen); Red Blood Cells-Urine 10-25 SEEN /hpf (0-5); Squamous Epithelial Cells - UA 0-5 SEEN /hpf (0-5); White Blood Cells >100 SEEN /hpf (0-5)
--- NOTE | 2022-11-28 12:05 | HP.PCM.HOS_ITS ---
HPI - General General Date of Admission: 11/28/22 Date of Service: 11/28/22 Chief Complaint: mechanical fall HPI Narrative LANI MARRERO, is a 67 M with a PMH as outlined who presents via the ED on 11/28/2022 with a complaint of mechanical fall. He said he was getting out of bed and fell and injured his knee. HE was seen in the ED then, and and xray done was negative. HE was sent home. He got home and fell again in his garage so he was brought back to the ED by the EMS. He couldnt give much of a history as he was confused. Patient was reviewed in the ED, and he was confused, and couldnt say much about why he was here. VItals in the ED were temp of 99.8F, [place] of 120, BP of 138/88, RR of 20, and he was saturating at 92% on 2L of oxygen. CBC showed hemoglobin of 14.8 with WBC of 16.6 and platelets of 152. INR was 1.4 and chemistry was essentially normal apart from sodium of 132 and total bilirubin of 1.1. Urinlaysis was positive for 3+ bactereia and >100 wbc/HPF. CXR showed cardiac enlargement and no focal infiltrate or edema. CT of the brain showed chronic involutional changes. He is being admitted to be managed for debility due to mechanical falls as well as UTI. HE also went into afib with RVR in the ED, and started on cardizem drip. [facility] Medical History Alcohol use Ambulates with cane Anxiety Arthritis Atrial fibrillation Bilateral leg edema BiPAP (biphasic positive airway pressure) dependence [facility] Cardiology follow-up encounter Depression Diabetes Dietary restriction Essential (primary) hypertension Former smoker History of echocardiogram History of edema History of pain when walking History of ulceration HTN (hypertension) Hyperlipidemia Insulin dependent diabetes mellitus Leg cramps Low iron Lower extremity neuropathy Morbid obesity New onset atrial fibrillation (10/01/20) Obstructive sleep apnea Pickwickian syndrome Restless legs Shortness of breath on exertion Thyroid nodule Type 2 diabetes mellitus Wears glasses Home Medications losartan 100 mg tablet 100 mg PO QHS 04/04/14 [History Last Taken 12/03/20] metformin 1,000 mg tablet 1,000 mg PO BIDCM 04/04/14 [History Last Taken 12/03/20] amlodipine 5 mg tablet 5 mg PO QHS 10/01/20 [History Last Taken 12/03/20] itfjayvn-ral-pptsy acid 300 mcg-lycopene 600 mcg-lutein 300 mcg tablet 1 tablet PO DAILY supplemetn 10/01/20 [History Last Taken 09/30/20] acetaminophen 500 mg tablet 500 mg PO Q6H PRN Pain 12/03/20 [History Last Taken 12/03/20] metoprolol succinate 100 mg tablet,extended release 24 hr (Toprol XL) 100 mg PO QHS 12/03/20 [History Last Taken 12/03/20] apixaban 5 mg tablet 5 mg PO BID #180 tabs 03/12/22 [Rx Last Taken Unknown] ferrous sulfate 325 mg (65 mg iron) tablet (FeroSul) 325 mg PO DAILY 03/12/22 [History Last Taken 04/26/22] gabapentin 600 mg tablet 600 mg PO TID 09/27/22 [History Last Taken Unknown] insulin glargine U-300 conc 300 unit/mL (3 mL) subcutaneous pen (Toujeo Max U- 300 SoloStar) 50 unit subcut QHS 09/27/22 [History Last Taken Unknown] oxycodone-acetaminophen 5 mg-325 mg tablet (Percocet) 1 tab PO Q6H PRN pain 3 days #12 tabs 11/28/22 [Rx Last Taken Unknown] Allergy/AdvReac Type Severity Reaction Status Date / Time ampicillin Allergy Unknown Verified 11/28/22 04:32 peanut Allergy NEEDS Verified 11/28/22 04:32 FOLLOW-UP Penicillins Allergy Unknown Verified 11/28/22 04:32 Family History Mother Heart disease Diabetes Father Heart disease Cancer Surgical History History of amputation of toe History of wisdom tooth extraction Social History Smoking Status: Former smoker how long ago did patient quit smokin alcohol intake: never substance use type: does not use caffeine: Yes ROS Review of Systems ROS Unobtainable: due to encephalopathy Vital Signs Vital Signs Vital Signs: 11/28/22 09:29 11/28/22 09:50 11/28/22 10:28 Temperature 99.8 F H Temperature Source Temporal Pulse Rate 120 H Respiratory Rate 20 H Blood Pressure 138/88 H Blood Pressure Mean 104 Pulse Ox 93 92 Oxygen Delivery Method Room Air Nasal Cannula Nasal Cannula Oxygen Flow Rate (L/min) 2 2 Weight Weight: 381 lb 13.45 oz Body Mass Index (BMI) 58.0 Physical Exam Const alert Orientation / Consciousness: confused, disoriented and lethargic HEENT normocephalic, head/scalp atraumatic, hearing grossly normal bilaterally and moist oral mucous membranes Eyes PERRL and EOMs intact bilaterally Neck no lymphadenopathy and supple Resp normal respiratory effort, no retractions, no use of accessory muscles and clear to auscultation bilaterally Cardio S1 normal heart sound and S2 normal heart sound Cardio Narrative: afib with RVR GI normal to inspection, nondistended, normoactive bowel sounds, soft to palpation, non-tender and non-distended Extremity normal to inspection, full ROM and no clubbing, cyanosis or edema Neuro CN's II-XII intact bilaterally and moves all extremities Neuro Narrative: confused. Sensorium / Orientation: awake and alert Motor Exam: strength 5/5 throughout Psych Psych Narrative: confused Results Lab / Micro Data Result Diagrams: 11/28/22 10:12 11/28/22 10:12 Labs: Laboratory Results - last 24 hr 11/28/22 10:12: WBC 16.6 H, RBC 5.37, Hgb 14.8, Hct 46.6, MCV 86.8, MCH 27.6, MCHC 31.8 L, RDW Std Deviation 43.2, RDW Coeff of Jada 13.7, Plt Count 152, MPV 10.3, Immature Gran % (Auto) 0.900, Neut % (Auto) 88.3 H, Lymph % (Auto) 5.7 L, [place] % (Auto) 4.6, Eos % (Auto) 0.0, Baso % (Auto) 0.5, Absolute Neuts (auto) 14.6 H, Absolute Lymphs (auto) 0.95, Nucleated RBC % 0 11/28/22 10:12: PT 17.1 H, INR 1.4, APTT 28.2 11/28/22 10:12: Sodium 132 L, Potassium 3.9, Chloride 99, Carbon Dioxide 23.0, Anion Gap 10, BUN 12, Creatinine 0.93, Estim Creat Clear Calc 73.55, Est GFR (MDRD) Af Amer 104, Est GFR (MDRD) Non-Af 86, BUN/Creatinine Ratio 12.9, Glucose 331 H, Calcium 8.7, Total Bilirubin 1.10 H, AST 38 H, ALT 26, Alkaline P hosphatase 92, Total Creatine Kinase 544 H, Troponin I High Sens 36, Total Pr otein 7.6, Albumin 3.2, Globulin 4.4 H, Albumin/Globulin Ratio 0.7 L 11/28/22 10:12: Lactic Acid 2.0 11/28/22 10:22: Ethyl Alcohol < 3.0 11/28/22 10:32: POC Glucose 340 H 11/28/22 11:52: Urine Color Yellow, Urine Clarity Cloudy, Urine pH 5.0, Ur Specific [place] 1.020, Urine Protein 100 H, Urine Glucose (UA) 1000 H, Urine Ketones 150 A*, Urine Occult Blood 250 H, Urine Nitrite Negative, Urine Bilirubin Negative, Urine Urobilinogen Normal, Ur Leukocyte Esterase 500 H, Urine RBC 10-25 SEEN, Urine WBC >100 SEEN, Ur Squamous Epith Cells 0-5 SEEN, Urine Bacteria 3+, Urine Mucus 0 SEEN Rhythm Strip Rhythm Strip: A-fib Rate: 136 Ectopy: None Radiology Impression Brain CT 11/28/22 09:53 IMPRESSION: Chronic involutional changes of the brain. Electronically Signed: Kwame Car MD at 11:36 EDT Reading Location ID and State: [facility] / [place] , Service support , Chest X-Ray 11/28/22 10:50 IMPRESSION: Cardiac enlargement. No focal infiltrate or edema. Electronically Signed: Kwame Car MD at 11:31 EDT , Assessment & Plan Assessment/Plan (1) Acute confusion: (2) Acute UTI: (3) Leukocytosis: (4) Atrial fibrillation with RVR: PLAN: Plan #Afib with RVR * new onset * patient was found to be in afib with RVR * HR was in the 150s a time of review. * on cardizem drip * start on therapeutic lovenox * * #Acute metabolic encephalopathy due to UTI * on urine had 3+ bacteria * will get urine cultures * get blood cultures * on IV ceftriaxone * #UTi: as above #TYpe 2 diabetes mellitus * On Lantus 50 units nightly. * Insulin Sliding scale. Accu-Cheks ACHS. * #Hypertension: Hold BP meds as he is on Cardizem drip. Hold metoprolol and losartan as well as amlodipine. DVT prophylaxis: Therapeutic Lovenox CODE STATUS: Presumed full code was unable to discuss with patient was confused. * Charges/Coding Visit Charges Inpatient E&M: 57901 Init Hosp L3
[2022-11-28] MEDS: Ceftriaxone 1 GM/50 ML BAG IV (13:08)
[2022-11-28 14:17] LABS: Reflex Lactate? Y
[2022-11-28] MEDS: 0.9% Normal Saline 1,000 ML 125 ML IV ×2 (14:45→20:47)
[2022-11-28 15:07] LABS: Lactic Acid 1.7 mmol/L (0.4-1.9)
[2022-11-28 16:33] LABS: Bedside Glucose 324 mg/dL (74-106)
[2022-11-28 16:33] LABS: Troponin-I HS 65 pg/mL (3.0-78.0)
[2022-11-28] MEDS: 0.9% Saline Lock 10 ML Syringe IV (17:12)
[2022-11-28] MEDS: Enoxaparin 150 MG/ML Syringe SC (17:13)
[2022-11-28] MEDS: Insulin Lispro 100 UNIT/ML INSULN.PEN SC ×2 (17:14→20:50)
[2022-11-28] MEDS: Nystatin Powder 15gm Bottle 1 APPLIC TOPICAL (20:47)
[2022-11-28 21:16] LABS: Bedside Glucose 295 mg/dL (74-106)
[2022-11-29] VITALS (25 sets, daily range): BP systolic 96–133; BP diastolic 47–72; PULSE 71–88; RESP 14–23; TEMP 36.6–37.1; O2SAT 93–96; BMI 57.7
--- NOTE | 2022-11-29 01:57 | CPS ---
Patient stated Bipap pressures did not feel like they were enough pressures increased to 18/10. Patient stated he feels better with pressure increase.
--- NOTE | 2022-11-29 05:55 | ECHOCS_ITS ---
Version 2 Reason For Study: Afib, Aflutter Procedure This was a 2D Doppler, Color Flow transthoracic echocardiogram. Contrast injection was performed. Exam performed portable in patient room. Left Ventricle Normal LV size. The estimated ejection fraction is 65 %. Unable to assess diastolic dysfunction. No regional wall motion abnormalities noted. Right Ventricle Normal RV size. Normal systolic function. Atria The left atrium is mildly enlarged. Normal right atrium. No doppler evidence for ASD. Mitral Valve There is mild to moderate mitral annular calcification. There is no mitral valve stenosis. No mitral valve insufficiency. Tricuspid Valve There is no tricuspid stenosis. Trivial tricuspid valve insufficiency. Unable to estimate RV systolic pressure due to insufficient tricuspid regurgitant envelope. Aortic Valve Trisinus/trileaflet aortic valve. There is no aortic stenosis. No aortic valve insufficiency. Pulmonic Valve There is no pulmonic valvular stenosis. No pulmonic valve insufficiency. Great Vessels Normal aortic root. Pericardium/Pleural No pericardial effusion. Medication Diluted definity 2.5ml given slow IV push to enhance endocardial definition. MMode/2D Measurements & Calculations LVIDd: 3.8 cm IVSd: 1.1 cm Ao root diam: 3.6 cm LVIDs: 2.3 cm LVPWd: 1.1 cm RVDd: 3.8 cm FS: 39.1 % LAV(MOD-bp): 104.5 ml LVAd ap4: 24.7 cm2 SV(MOD-sp4): 36.7 ml LAV(MOD-bp) Indexed: 38.9 ml/m2 LVLd ap4: 7.7 cm LAV(MOD-sp2): 97.3 ml EDV(MOD-sp4): 66.0 ml LAV(MOD-sp4): 98.7 ml EDV(sp4-el): 67.3 ml LVAs ap4: 14.8 cm2 LVLs ap4: 6.2 cm ESV(MOD-sp4): 29.2 ml ESV(sp4-el): 30.0 ml EF(MOD-sp4): 55.7 % EF(sp4-el): 55.3 % SV(sp4-el): 37.2 ml LA A4 area: 30.2 cm2 LA dimension(2D): 4.7 cm RA A4 area: 17.9 cm2 Doppler Measurements & Calculations MV E max diane: 102.9 cm/sec Ao V2 max: 174.7 cm/sec LV V1 max: 91.4 cm/sec Ao max P.2 mmHg LV V1 max P.4 mmHg Ao V2 mean: 123.2 cm/sec Ao mean P.8 mmHg Ao V2 VTI: 31.6 cm PA V2 max: 109.4 cm/sec TR max diane: 217.4 cm/sec TR max P.9 mmHg ECHO/Echo Complete W/ Contrast Interpretation Summary The estimated ejection fraction is 65 %. The left atrium is mildly enlarged. Unable to assess diastolic dysfunction. Ordering Physician: Hilda Zimmerman Referring Physician: Bernabe Reese Performed By: Stanley SALTER RDCS, Melissa and Student
[2022-11-29 05:57] LABS: Absolute Lymphocyte Count 1.23 X10^3/uL (0.83-4.51); Absolute Neutrophil Count 8.9 X10^3/uL (2.0-7.7); Basophil# 0.02 X10^3/uL; Basophil% 0.2 % (0-1); Hematocrit 37.5 % (40-54); Hemoglobin 12.2 g/dL (13.0-16.5); Lymphocyte # 1.23 X10^3/ul (0.83-4.51); Lymphocyte % 11.4 % (19-41); Mean Corp Hgb Conc 32.5 g/dL (32-36); Mean Corpuscular Hgb 27.2 pg (27.0-32.0); Mean Corpuscular Volume 83.5 fL (80-94); Mean Platelet Vol. 10.2 fl (6.2-12.0); Monocyte# 0.55 X10^3/uL; Monocyte% 5.1 % (0-10); NRBC Flagged by Analyzer 0 % (0-5); Neutrophil # 8.89 X10^3/uL (2.7-7.7); Neutrophil % 82.7 % (47-70); Platelet Count 136 K/mm3 (150-450); RBC Distribution Width CV 14.1 % (11.6-14.6); Red Blood Count 4.49 M/mm3 (4.6-6.2); White Blood Count 10.8 K/mm3 (4.4-11.0)
[2022-11-29 06:30] LABS: Anion Gap 6 (5-15); BUN 16 mg/dL (7-18); BUN/Creat Ratio 19.1 RATIO (10-20); Calcium,Total 7.6 mg/dL (8.5-10.1); Chloride 101 mmol/L (98-107); Creatinine, Serum 0.84 mg/dL (0.70-1.30); EST Glomerular Filtration Rate 97 mL/min (>60); Est Glom Filt Rate - Afr Amer 118 mL/min (>60); Estimated Creatinine Clearance 81.43 ml/min; Glucose 268 mg/dL (74-106); Potassium 3.2 mmol/L (3.5-5.1); Sodium Level 133 mmol/L (136-145)
[2022-11-29] MEDS: Insulin Lispro 100 UNIT/ML INSULN.PEN SC ×4 (06:44→23:15)
[2022-11-29 07:03] LABS: Bedside Glucose 287 mg/dL (74-106)
[2022-11-29] MEDS: Potassium Chloride Oral Tablet 20 MEQ 40 MEQ PO (09:19)
[2022-11-29] MEDS: Ceftriaxone 1 GM/50 ML BAG IV (10:38)
[2022-11-29] MEDS: Enoxaparin 150 MG/ML Syringe SC (10:41)
--- NOTE | 2022-11-29 10:50 | CASEMGMT ---
RN RUSSEL Face to Face with patient for initial transition planning/care coordination assessment. RN CM introduced self and role at [facility]. Patient lying in bed, alert and oriented. Patient willing to participate in assessment and is able to answer all questions appropriately. Care providers, pharmacy, and demographics verified. Patient wishes to discharge home, denies need for home health at this time. Patient states he has no further needs or concerns at this time. CM to follow for discharge planning needs that may arise. PCP: Mary Ann Specialists: Chinedu shank carrier Preferred Pharmacy: [facility] Pres[facility] Benefit: yes Living Will/HPOA: none LNOK: son, sister Living Arrangements: Patient lives alone in a condo with 2 steps to enter. Patient states he is independent at home. Transportation: self, friend DME/HHC: Patient states he has shower chair, raised toilet, cane, grab bars, walker, and bipap at home. Patient denies previous HHC or SNF. Disposition Plan: Patient to discharge home with follow-up plans in place. Will monitor for need for HHC and home oxygen at discharge. Jazmín RODRIGUEZ, RN, CM
[2022-11-29 12:01] LABS: Bedside Glucose 340 mg/dL (74-106)
--- NOTE | 2022-11-29 15:12 | PCM.PROGNOTE ---
Subjective Subjective Patient seen and examined. He had no complaints remains confused. Heart rate is much better controlled. He has remained hemodynamically stable. Review of systems otherwise negative. Objective Data Objective Data Vital Signs: Vital Signs Temp Pulse Resp BP Pulse Ox O2 Del Method O2 Flow Rate 98.8 F 71 20 H 124/62 H 95 Nasal Cannula 2 11/29/22 12:00 11/29/22 15:00 11/29/22 15:00 11/29/22 15:00 11/29/22 15:00 11/29/22 15:00 11/29/22 15:00 FiO2 30 11/29/22 07:45 Oxygen Flow Rate (L/min) 2 Oxygen Delivery Method Nasal Cannula Weight: 380 lb 15.34 oz Body Mass Index (BMI) 57.7 Intake & Output: Intake and Output for Last 24 Hours 11/27/22 11/28/22 11/29/22 23:59 23:59 23:59 Intake Total 2178.84 / 2193.84 1662.50 / 1662.50 Output Total 600 / 600 200 / 200 Balance 1578.84 / 1593.84 1462.50 / 1462.50 Lab / Micro Data Result Diagrams: 11/29/22 04:50 11/29/22 04:50 Labs: Laboratory Results - last 24 hr 11/28/22 16:03: Troponin I High Sens 65 11/28/22 16:14: POC Glucose 324 H 11/28/22 20:49: POC Glucose 295 H 11/29/22 04:50: WBC 10.8, RBC 4.49 L, Hgb 12.2 L, Hct 37.5 L, MCV 83.5, MCH 27.2, MCHC 32.5, RDW Std Deviation 43.0, RDW Coeff of Jada 14.1, Plt Count 136 L, MPV 10.2, Immature Gran % (Auto) 0.600, Neut % (Auto) 82.7 H, Lymph % (Auto) 11.4 L, [place] % (Auto) 5.1, Eos % (Auto) 0.0, Baso % (Auto) 0.2, Absolute Neuts (auto) 8.9 H, Absolute Lymphs (auto) 1.23, Nucleated RBC % 0 11/29/22 04:50: Sodium 133 L, Potassium 3.2 L, Chloride 101, Carbon Dioxide 26.0, Anion Gap 6, BUN 16, Creatinine 0.84, Estim Creat Clear Calc 81.43, Est GFR (MDRD) Af Amer 118, Est GFR (MDRD) Non-Af 97, BUN/Creatinine Ratio 19.1, Glucose 268 H, Calcium 7.6 L 11/29/22 06:43: POC Glucose 287 H 11/29/22 11:38: POC Glucose 340 H Micro: Microbiology 11/28/22 11:52 Urine, Catheterized Urine Culture - Preliminary Streptococcus agalactiae (B) 11/28/22 10:12 Blood Culture (Wb) - Anticubital Right Bacteria Detection (PCR) - Final Streptococcus agalactiae (B) 11/28/22 10:12 Blood Culture (Wb) - Anticubital Right Blood Culture - Preliminary 11/28/22 10:30 Blood Culture (Wb) - Right Hand Blood Culture - Preliminary Streptococcus group B Radiography Diagnostic Testing: Radiology Impression Echocardiogram 11/29/22 05:55 Interpretation Summary The estimated ejection fraction is 65 %. The left atrium is mildly enlarged. Unable to assess diastolic dysfunction. Ordering Physician: Hilda Zimmerman Referring Physician: Bernabe Reese Performed By: Stanley SALTER RDCS, Melissa and Student Rhythm Strip Rhythm Strip: A-fib Rate: 136 Ectopy: None Physical Exam Const alert Orientation / Consciousness: confused, disoriented and lethargic HEENT normocephalic, head/scalp atraumatic, hearing grossly normal bilaterally and moist oral mucous membranes Eyes PERRL and EOMs intact bilaterally Neck no lymphadenopathy and supple Resp normal respiratory effort, no retractions, no use of accessory muscles and clear to auscultation bilaterally Cardio S1 normal heart sound and S2 normal heart sound Cardio Narrative: afib with RVR GI normal to inspection, nondistended, normoactive bowel sounds, soft to palpation, non-tender and non-distended Extremity normal to inspection, full ROM and no clubbing, cyanosis or edema Neuro CN's II-XII intact bilaterally and moves all extremities Neuro Narrative: confused. Sensorium / Orientation: awake and alert Motor Exam: strength 5/5 throughout Psych Psych Narrative: confused Assessment & Plan Assessment/Plan (1) Acute confusion: (2) Acute UTI: (3) Leukocytosis: (4) Atrial fibrillation with RVR: PLAN: Plan #Afib with RVR improved. HR better controlled wean off cardizem drip as tolerated switch to PO metoprolol on therapeutic lovenox #Acute metabolic encephalopathy due to UTI on urine had 3+ bacteria urine cultures growing Strep agalactiae blood cultures growing Strep agalactiae o IV ceftriaxone; will continue for now. #UTi: as above #TYpe 2 diabetes mellitus On Lantus 50 units nightly. Insulin Sliding scale. Accu-Cheks ACHS. #Hypertension: Hold BP meds as he is on Cardizem drip. Hold metoprolol and losartan as well as amlodipine. DVT prophylaxis: Therapeutic Lovenox CODE STATUS: Presumed full code was unable to discuss with patient was confused. Charges/Coding Visit Charges Inpatient E&M: 98170 Subs Hosp L3
[2022-11-29] MEDS: 0.9% Saline Lock 10 ML Syringe IV (16:26)
[2022-11-29 17:31] LABS: Bedside Glucose 326 mg/dL (74-106)
[2022-11-29] MEDS: APIXABAN 5 MG TABLET PO (23:09)
[2022-11-29] MEDS: amLODIPine 5 MG Tablet PO (23:09)
[2022-11-29] MEDS: Metoprolol(XL)Succ 100 MG Tablet PO (23:09)
[2022-11-29] MEDS: Insulin Glargine-YFGN 100 UNIT/ML Pen 50 UNIT SC (23:20)
[2022-11-29 23:55] LABS: Bedside Glucose 267 mg/dL (74-106)
[2022-11-30] VITALS (10 sets, daily range): BP systolic 112–139; BP diastolic 51–75; PULSE 72–97; RESP 14–20; TEMP 36.6–36.9; O2SAT 93–99; BMI 57.9
[2022-11-30 06:30] LABS: Absolute Lymphocyte Count 1.57 X10^3/uL (0.83-4.51); Absolute Neutrophil Count 5.6 X10^3/uL (2.0-7.7); Basophil# 0.03 X10^3/uL; Basophil% 0.4 % (0-1); Eosinophil# 0.13 X10^3/uL; Eosinophils% 1.6 % (0-5); Hemoglobin 12.5 g/dL (13.0-16.5); Lymphocyte # 1.57 X10^3/ul (0.83-4.51); Lymphocyte % 19.2 % (19-41); Mean Corp Hgb Conc 32.9 g/dL (32-36); Mean Corpuscular Hgb 27.4 pg (27.0-32.0); Mean Corpuscular Volume 83.2 fL (80-94); Mean Platelet Vol. 10.3 fl (6.2-12.0); Monocyte# 0.81 X10^3/uL; Monocyte% 9.9 % (0-10); NRBC Flagged by Analyzer 0 % (0-5); Neutrophil # 5.61 X10^3/uL (2.7-7.7); Neutrophil % 68.4 % (47-70); Platelet Count 144 K/mm3 (150-450); RBC Distribution Width CV 14.3 % (11.6-14.6); RBC Distribution Width SD 43.4 fl (35.1-43.9); Red Blood Count 4.57 M/mm3 (4.6-6.2); White Blood Count 8.2 K/mm3 (4.4-11.0)
[2022-11-30] MEDS: Insulin Lispro 100 UNIT/ML INSULN.PEN SC ×3 (06:52→21:13)
[2022-11-30 07:08] LABS: Anion Gap 5 (5-15); BUN 25 mg/dL (7-18); BUN/Creat Ratio 27.7 RATIO (10-20); Calcium,Total 8.2 mg/dL (8.5-10.1); Chloride 103 mmol/L (98-107); EST Glomerular Filtration Rate 89 mL/min (>60); Est Glom Filt Rate - Afr Amer 108 mL/min (>60); Glucose 237 mg/dL (74-106); Potassium 3.6 mmol/L (3.5-5.1); Sodium Level 135 mmol/L (136-145)
[2022-11-30 07:11] LABS: Bedside Glucose 236 mg/dL (74-106)
[2022-11-30] MEDS: 0.9% Saline Lock 10 ML Syringe IV (09:40)
[2022-11-30] MEDS: Ferrous Sulfate 325 MG Tablet PO (09:41)
[2022-11-30] MEDS: APIXABAN 5 MG TABLET PO ×2 (09:42→21:15)
[2022-11-30] MEDS: Multivitamins,Ther W-Minerals Tablet 1 TABLET PO (09:42)
--- NOTE | 2022-11-30 10:33 | PN_ITS ---
Subjective Subjective Patient seen and examined. He said he felt a bit short of breath. He was on only 2L of oxygen though, and saturating at 97% at time of my review. Review of systems was otherwise negative. He however subsequently went up to 15L by nonrebreather mask. Objective Data Objective Data Vital Signs: Vital Signs Temp Pulse Resp BP Pulse Ox O2 Del Method O2 Flow Rate 98.4 F 78 19 H 122/51 H 97 Non-Rebreather @ 15L/min and High Flow 2 11/30/22 09:36 11/30/22 09:36 11/30/22 09:36 11/30/22 09:36 11/30/22 09:36 11/30/22 09:36 11/30/22 04:46 FiO2 30 11/30/22 06:58 Oxygen Flow Rate (L/min) 2 Oxygen Delivery Method Non-Rebreather @ 15L/min Weight: 380 lb 11.813 oz Body Mass Index (BMI) 57.9 Intake & Output: Intake and Output for Last 24 Hours 11/28/22 11/29/22 11/30/22 23:59 23:59 23:59 Intake Total 2178.84 / 2193.84 1671.83 / 1671.83 Output Total 600 / 600 200 / 700 600 / 600 Balance 1578.84 / 1593.84 1471.83 / 971.83 -600 / -600 Lab / Micro Data Result Diagrams: 11/30/22 05:22 11/30/22 05:22 Labs: Laboratory Results - last 24 hr 11/29/22 11:38: POC Glucose 340 H 11/29/22 17:08: POC Glucose 326 H 11/29/22 23:15: POC Glucose 267 H 11/30/22 05:22: WBC 8.2, RBC 4.57 L, Hgb 12.5 L, Hct 38.0 L, MCV 83.2, MCH 27.4, MCHC 32.9, RDW Std Deviation 43.4, RDW Coeff of Jada 14.3, Plt Count 144 L, MPV 10.3, Immature Gran % (Auto) 0.500, Neut % (Auto) 68.4, Lymph % (Auto) 19.2, [place] % (Auto) 9.9, Eos % (Auto) 1.6, Baso % (Auto) 0.4, Absolute Neuts (auto) 5. 6, Absolute Lymphs (auto) 1.57, Nucleated RBC % 0 11/30/22 05:22: Sodium 135 L, Potassium 3.6, Chloride 103, Carbon Dioxide 27.0, Anion Gap 5, BUN 25 H, Creatinine 0.90, Estim Creat Clear Calc 76.00, Est GFR (MDRD) Af Amer 108, Est GFR (MDRD) Non-Af 89, BUN/Creatinine Ratio 27.7 H, Glucose 237 H, Calcium 8.2 L 11/30/22 06:51: POC Glucose 236 H Micro: Microbiology 11/28/22 11:52 Urine, Catheterized Urine Culture - Preliminary Streptococcus agalactiae (B) 11/28/22 10:12 Blood Culture (Wb) - Anticubital Right Bacteria Detection (PCR) - Final Streptococcus agalactiae (B) 11/28/22 10:12 Blood Culture (Wb) - Anticubital Right Blood Culture - Final Streptococcus agalactiae (B) 11/28/22 10:30 Blood Culture (Wb) - Right Hand Blood Culture - Preliminary Streptococcus agalactiae (B) Radiography Diagnostic Testing: Radiology Impression Echocardiogram 11/29/22 05:55 Interpretation Summary The estimated ejection fraction is 65 %. The left atrium is mildly enlarged. Unable to assess diastolic dysfunction. Ordering Physician: Hilda Zimmerman Referring Physician: Bernabe Reese Performed By: Stanley SALTER RDCS, Melissa and Student Rhythm Strip Rhythm Strip: A-fib Rate: 136 Ectopy: None Physical Exam Const alert and oriented x3 Constitutional Narrative: obese Orientation / Consciousness: confused, disoriented and lethargic HEENT normocephalic, head/scalp atraumatic, hearing grossly normal bilaterally and moist oral mucous membranes Eyes PERRL and EOMs intact bilaterally Neck no lymphadenopathy and supple Resp normal respiratory effort, no retractions, no use of accessory muscles and clear to auscultation bilaterally Resp Narrative: mildly diminished breath sounds bibasally, no wheezes or crackles. On 15L of oxygen by nonrebreather mask. Cardio regular rate, regular rhythm, S1 normal heart sound and S2 normal heart sound GI normal to inspection, nondistended, normoactive bowel sounds, soft to palpation, non-tender and non-distended Extremity normal to inspection, full ROM and no clubbing, cyanosis or edema General Extremity: clubbing and cyanosis Skin General Skin Exam: no breakdown Neuro CN's II-XII intact bilaterally, moves all extremities and no focal motor deficits Sensorium / Orientation: awake and alert Motor Exam: strength 5/5 throughout Psych thought process normal Appearance: appropriate Assessment & Plan Assessment/Plan (1) Acute confusion: (2) Acute UTI: (3) Leukocytosis: (4) Atrial fibrillation with RVR: PLAN: Plan #Afib with RVR * resolved. * now on metoprolol. Weaned off cardiem drip * wean off cardizem drip as tolerated * switch to PO metoprolol * on eliquis * #Acute metabolic encephalopathy due to UTI * encephalopathy has resolved. Now alert and oriented. * urinalysis had 3+ bacteria * urine cultures growing Strep agalactiae * blood cultures growing Strep agalactiae * o IV ceftriaxone. ID consulted. Await rec's * #Strep bacteremia * blood cultures positive for Strep agalactiae * ID consulted. Await rec's * #UTi: as above #TYpe 2 diabetes mellitus * On Lantus 50 units nightly. * Insulin Sliding scale. Accu-Cheks ACHS. * #Hypertension: on metoprolol, losartan and amlodipine, which were held on admission due to afib wih RVR and being on cardizem drip DVT prophylaxis: Therapeutic Lovenox CODE STATUS: full code * Charges/Coding Visit Charges Inpatient E&M: 37079 Subs Hosp L2
--- NOTE | 2022-11-30 10:40 | CASEMGMT ---
Social Work CM did assessment, and pt indicated does not have LW or POA. PRANAV Queen
--- NOTE | 2022-11-30 10:47 | CT_ITS ---
STUDY: CT ABDOMEN AND PELVIS WITH CONTRAST REASON FOR EXAM: Male, 67 years old. Pyelonephritis RADIATION DOSAGE (If Supplied By Facility): CTDIvol = ( 24.33 ) mGy, DLP = ( 1797.49 ) mGycm TECHNIQUE: Transaxial images were obtained from the dome of the diaphragm to the symphysis pubis without oral contrast. IV 100mL Isovue-300 was administered. Sagittal and coronal images were reconstructed. Individualized dose optimization techniques were used for this CT. COMPARISON: None. FINDINGS: Mild increased markings at the lung bases suggestive of atelectasis. Coronary artery calcification. There is decreased attenuation of the liver consistent with steatosis. Normal gallbladder and extrahepatic biliary system. Normal spleen. Normal pancreas. Normal bilateral adrenal glands. Normal right kidney. Normal left kidney. Normal visualized stomach. Normal small intestine. There are multiple colonic diverticula consistent with diverticulosis. The appendix is visualized and appears normal. There is scattered atherosclerotic calcification of the abdominal aorta, without a demonstrated aneurysm. Normal inferior vena cava. There is borderline retroperitoneal lymphadenopathy with enlarged nodes no greater than 10mm in the short axis diameter. A Franks catheter is seen within an empty bladder. Normal abdominal wall. There are degenerative changes of the visualized lumbar spine. CT/Abdomen/Pelvis W IV Cont ONLY IMPRESSION: No evidence of pyelonephritis. Scattered sigmoid diverticula. Fatty infiltration of the liver. Electronically Signed: Amilcar León MD at 13:15 EDT ,
--- NOTE | 2022-11-30 10:47 | PCM.CONS.GEN ---
Assessment & Plan Assessment/Plan (1) Acute UTI: (2) Streptococcal bacteremia: PLAN: Strep bacteremia from urinary source with suspected pyelo given L flank pain and h/o kidney stones. Will increase dose of ceftriaxone, will check CT stone study. Might need urology eval. Reports anaphylaxis with PCN as a small child, so far tolerating ceftriaxone without issue. Will follow, thank you HPI Consult Data Date of Consult: 11/30/22 HPI Narrative Reason for Consultation: bacteremia HPI Narrative: LANI MARRERO, is a 67 M with h/o afib, DM, had been feeling fine at home, came to ED 11/28 due to fall x2 at home, weakness, confusion. No fever or chills, no abd pain, no change in urine. Does have h/o kidney stones. Came to ED, admitted on ceftriaxone, found to have strep in bcx and ucx. Feeling better this AM. Full ROS performed and neg except as noted above. [facility] Medical History Alcohol use Ambulates with cane Anxiety Arthritis Atrial fibrillation Bilateral leg edema BiPAP (biphasic positive airway pressure) dependence [facility] follow-up encounter Depression Diabetes Dietary restriction Essential (primary) hypertension Former smoker History of echocardiogram History of edema History of pain when walking History of ulceration HTN (hypertension) Hyperlipidemia Insulin dependent diabetes mellitus Leg cramps Low iron Lower extremity neuropathy Morbid obesity New onset atrial fibrillation (10/01/20) Obstructive sleep apnea Pickwickian syndrome Restless legs Shortness of breath on exertion Thyroid nodule Type 2 diabetes mellitus Wears glasses Home Medications losartan 100 mg tablet 100 mg PO QHS Check with primary doctor 04/04/14 [History Last Taken 12/03/20] metformin 1,000 mg tablet 1,000 mg PO BIDCM diabetes 04/04/14 [History Last Taken 12/03/20] amlodipine 5 mg tablet 5 mg PO QHS BP 10/01/20 [History Last Taken 12/03/20] jcnfgzdx-fxe-ybydh acid 300 mcg-lycopene 600 mcg-lutein 300 mcg tablet 1 tablet PO DAILY supplemetn 10/01/20 [History Last Taken 09/30/20] metoprolol succinate 100 mg tablet,extended release 24 hr (Toprol XL) 100 mg PO QHS Check with primary doctor 12/03/20 [History Last Taken 12/03/20] ferrous sulfate 325 mg (65 mg iron) tablet (FeroSul) 325 mg PO DAILY Check with primary doctor 03/12/22 [History Last Taken 04/26/22] insulin glargine U-300 conc 300 unit/mL (3 mL) subcutaneous pen (Toujeo Max U-300 SoloStar) 50 unit subcut QHS diabetes 09/27/22 [History Last Taken Unknown] apixaban 5 mg tablet 5 mg PO BID blood thinner 11/29/22 [History Last Taken Unknown] gabapentin 800 mg tablet 800 mg TID neuropathy 11/29/22 [History Last Taken Unknown] Allergy/AdvReac Type Severity Reaction Status Date / Time ampicillin Allergy Unknown Verified 11/28/22 04:32 peanut Allergy NEEDS Verified 11/28/22 04:32 FOLLOW-UP Penicillins Allergy Unknown Verified 11/28/22 04:32 Family History Mother Heart disease Diabetes Father Heart disease Cancer Surgical History History of amputation of toe History of wisdom tooth extraction Social History Smoking Status: Former smoker how long ago did patient quit smokin alcohol intake: never substance use type: does not use caffeine: Yes Physical Exam Const alert, oriented x3 and no apparent distress General Appearance: cooperative HEENT normocephalic and head/scalp atraumatic Eyes PERRL and EOMs intact bilaterally Neck supple and No nodes Resp normal air movement and clear to auscultation bilaterally Cardio regular rate and regular rhythm GI soft to palpation and non-distended GI Narrative: L flank tenderness Extremity General Extremity: edema Skin no rashes or lesions noted Neuro CN's II-XII intact bilaterally Lab / Micro Data Attestation: I reviewed the patient's lab results. Result Diagrams: 11/30/22 05:22 11/30/22 05:22 Labs: Laboratory Results - last 24 hr 11/29/22 11:38: POC Glucose 340 H 11/29/22 17:08: POC Glucose 326 H 11/29/22 23:15: POC Glucose 267 H 11/30/22 05:22: WBC 8.2, RBC 4.57 L, Hgb 12.5 L, Hct 38.0 L, MCV 83.2, MCH 27.4, MCHC 32.9, RDW Std Deviation 43.4, RDW Coeff of Jada 14.3, Plt Count 144 L, MPV 10.3, Immature Gran % (Auto) 0.500, Neut % (Auto) 68.4, Lymph % (Auto) 19.2, [place] % (Auto) 9.9, Eos % (Auto) 1.6, Baso % (Auto) 0.4, Absolute Neuts (auto) 5.6, Absolute Lymphs (auto) 1.57, Nucleated RBC % 0 11/30/22 05:22: Sodium 135 L, Potassium 3.6, Chloride 103, Carbon Dioxide 27.0, Anion Gap 5, BUN 25 H, Creatinine 0.90, Estim Creat Clear Calc 76.00, Est GFR (MDRD) Af Amer 108, Est GFR (MDRD) Non-Af 89, BUN/Creatinine Ratio 27.7 H, Glucose 237 H, Calcium 8.2 L 11/30/22 06:51: POC Glucose 236 H Micro: Microbiology 11/28/22 11:52 Urine, Catheterized Urine Culture - Preliminary Streptococcus agalactiae (B) 11/28/22 10:12 Blood Culture (Wb) - Anticubital Right Bacteria Detection (PCR) - Final Streptococcus agalactiae (B) 11/28/22 10:12 Blood Culture (Wb) - Anticubital Right Blood Culture - Final Streptococcus agalactiae (B) 11/28/22 10:30 Blood Culture (Wb) - Right Hand Blood Culture - Preliminary Streptococcus agalactiae (B) Rhythm Strip Rhythm Strip: A-fib Rate: 136 Ectopy: None Radiology Impression Echocardiogram 11/29/22 05:55 Interpretation Summary The estimated ejection fraction is 65 %. The left atrium is mildly enlarged. Unable to assess diastolic dysfunction. Ordering Physician: Hilda Zimmerman Referring Physician: Bernabe Reese Performed By: Stanley SALTER RDCS, Melissa and Student
[2022-11-30] MEDS: Gabapentin 800 MG Tablet PO ×2 (14:31→21:20)
--- NOTE | 2022-11-30 15:02 | CASEMGMT ---
SW reviewed patient's therapy notes from yesterday and they are recommending retirement facility. SW met with patient. Introduced self and role at [facility]. SW explained therapy's recommendation to patient for retirement facility. Patient was agreeable to look at a list. ALVARADO asked Norma garces/sami planning engineer to please print a SNF list. Maureen Dias [employer]
--- NOTE | 2022-11-30 15:08 | CASEMGMT ---
Discharge Planning SNF list created and given to SW. Norma Ayala, Discharge Planning Asst.
--- NOTE | 2022-11-30 15:17 | CASEMGMT ---
SW provided patient with a list of [facility] facility providers including quality and resource use data and consistent with patient?s preferred geographic region, medical needs, and insurance network were provided from the [facility] Guide. Patient said he would review the list this evening. ALVARADO told patient ALVARADO will check back with him tomorrow. Maureen CAO
[2022-11-30 16:24] LABS: Bedside Glucose 287 mg/dL (74-106)
[2022-11-30] MEDS: metFORMIN HCl 1,000 MG Tablet 1000 MG PO (17:04)
[2022-11-30] MEDS: Insulin Glargine-YFGN 100 UNIT/ML Pen 50 UNIT SC (21:14)
[2022-11-30] MEDS: Losartan Potassium 100 MG Tablet PO (21:15)
[2022-11-30] MEDS: amLODIPine 5 MG Tablet PO (21:15)
[2022-11-30] MEDS: Metoprolol(XL)Succ 100 MG Tablet PO (21:15)
[2022-11-30 21:34] LABS: Bedside Glucose 344 mg/dL (74-106)
[2022-12-01] VITALS (9 sets, daily range): BP systolic 114–144; BP diastolic 49–73; PULSE 74–98; RESP 18–20; TEMP 36.6–36.9; O2SAT 94–98; BMI 58.8
--- NOTE | 2022-12-01 05:33 | PCM.RX.CS ---
Consult Pharmacy has been consulted to manage selected antiobiotic: Vancomycin Type of Consult: New start Prior Doses of Antibiotics Received/Current Regimen: Medications Vancomycin HCl 1,750 mg/ (Sodium Chloride) 535 mls @ 250 mls/hr IV Q12H JANNETTE Vancomycin HCl 2,000 mg/ (Sodium Chloride) 540 mls @ 250 mls/hr IV X1 ONE Stop: 12/01/22 06:39 Last Admin: 12/01/22 05:22 Dose: 250 mls/hr Labs: Sodium 135 mmol/L (136-145) L 11/30/22 05:22 Potassium 3.6 mmol/L (3.5-5.1) 11/30/22 05:22 Chloride 103 mmol/L (98-107) 11/30/22 05:22 Carbon Dioxide 27.0 mmol/L (21.0-32.0) 11/30/22 05:22 Anion Gap 5 (5-15) 11/30/22 05:22 BUN 25 mg/dL (7-18) H 11/30/22 05:22 Creatinine 0.90 mg/dL (0.70-1.30) 11/30/22 05:22 Est GFR (MDRD) Af Amer 108 mL/min (>60) 11/30/22 05:22 Est GFR (MDRD) Non-Af 89 mL/min (>60) 11/30/22 05:22 BUN/Creatinine Ratio 27.7 RATIO (10-20) H 11/30/22 05:22 Glucose 237 mg/dL (74-106) H 11/30/22 05:22 Microbiology: Microbiology 11/28/22 11:52 Urine, Catheterized Urine Culture - Preliminary Streptococcus agalactiae (B) 11/28/22 10:12 Blood Culture (Wb) - Anticubital Right Bacteria Detection (PCR) - Final Streptococcus agalactiae (B) 11/28/22 10:12 Blood Culture (Wb) - Anticubital Right Blood Culture - Final Streptococcus agalactiae (B) 11/28/22 10:30 Blood Culture (Wb) - Right Hand Blood Culture - Preliminary Streptococcus agalactiae (B) Weight used for dosin kg Estimated Creatinine Clearance: 122 by ABW Goal Trough: 10-15 mcg/mL Pharmacy Plan for Drug Dosing: Pharmacy Service will continue to monitor and adjust dosing as required. Follow-Up Labs: Trough Vancomycin Labs to be done on [date and time ordered]: 12/02/22 @5328
[2022-12-01 06:50] LABS: Absolute Lymphocyte Count 1.69 X10^3/uL (0.83-4.51); Absolute Neutrophil Count 6.3 X10^3/uL (2.0-7.7); Basophil# 0.03 X10^3/uL; Basophil% 0.3 % (0-1); Eosinophil# 0.11 X10^3/uL; Eosinophils% 1.2 % (0-5); Hemoglobin 13.7 g/dL (13.0-16.5); Lymphocyte # 1.69 X10^3/ul (0.83-4.51); Lymphocyte % 18.9 % (19-41); Mean Corp Hgb Conc 31.9 g/dL (32-36); Mean Corpuscular Hgb 28.1 pg (27.0-32.0); Mean Corpuscular Volume 88.3 fL (80-94); Mean Platelet Vol. 10.2 fl (6.2-12.0); Monocyte# 0.79 X10^3/uL; Monocyte% 8.8 % (0-10); NRBC Flagged by Analyzer 0 % (0-5); Neutrophil # 6.29 X10^3/uL (2.7-7.7); Neutrophil % 70.4 % (47-70); Platelet Count 143 K/mm3 (150-450); RBC Distribution Width CV 14.2 % (11.6-14.6); RBC Distribution Width SD 45.5 fl (35.1-43.9); Red Blood Count 4.87 M/mm3 (4.6-6.2)
[2022-12-01] MEDS: Gabapentin 800 MG Tablet PO ×3 (06:51→21:42)
[2022-12-01] MEDS: Insulin Lispro 100 UNIT/ML INSULN.PEN SC ×4 (06:54→21:46)
[2022-12-01 07:27] LABS: Bedside Glucose 249 mg/dL (74-106)
[2022-12-01 07:31] LABS: Anion Gap 3 (5-15); BUN 23 mg/dL (7-18); Calcium,Total 8.7 mg/dL (8.5-10.1); Chloride 104 mmol/L (98-107); Creatinine, Serum 0.85 mg/dL (0.70-1.30); EST Glomerular Filtration Rate 95 mL/min (>60); Est Glom Filt Rate - Afr Amer 115 mL/min (>60); Estimated Creatinine Clearance 80.47 ml/min; Glucose 260 mg/dL (74-106); Potassium 4.5 mmol/L (3.5-5.1); Sodium Level 135 mmol/L (136-145)
--- NOTE | 2022-12-01 07:43 | PCM.HOSP.N ---
Hospitalist Note Vancomycin was started overnight due to erythematous extensive swelling in the lower extremity on left side - concerning for cellulitis. Would appreciate ID comments regarding need for ongoing Vanc vs resuming with ceftriaxone alone.
--- NOTE | 2022-12-01 09:15 | CASEMGMT ---
SW met with patient to see if he looked at the [facility] list. Patient said he had not, but he has been to [facility] in the past. Patient asked that SW check with [facility], [facility], and [facility]. SW told patient referrals will be made and SW will get back to him. Plan: SNF pending acceptance and patient being medically ready. Maureen CAO
[2022-12-01] MEDS: Multivitamins,Ther W-Minerals Tablet 1 TABLET PO (09:19)
[2022-12-01] MEDS: APIXABAN 5 MG TABLET PO ×2 (09:19→21:42)
[2022-12-01] MEDS: metFORMIN HCl 1,000 MG Tablet 1000 MG PO ×2 (09:19→17:21)
[2022-12-01] MEDS: 0.9% Saline Lock 10 ML Syringe IV ×2 (09:19→15:46)
[2022-12-01] MEDS: Ferrous Sulfate 325 MG Tablet PO (09:19)
--- NOTE | 2022-12-01 09:33 | CASEMGMT ---
Discharge Planning Per patient request, referrals sent via [facility] to [facility], [facility], and [facility]. Norma Ayala, Discharge Planning
--- NOTE | 2022-12-01 11:43 | PN_ITS ---
Subjective Subjective Patient seen and examined. He said he was not feeling as well as he did yesterday. However he cannot pinpoint any significant complaints. He denies any fever, chills, nausea or vomiting or burning with urination or any other symptoms. Review of systems otherwise negative. He has remained hemodynamically stable. Objective Data Objective Data Vital Signs: Vital Signs Temp Pulse Resp BP Pulse Ox O2 Del Method O2 Flow Rate 98.5 F 88 18 114/49 L 94 Room Air 2 12/01/22 09:00 12/01/22 09:00 12/01/22 09:00 12/01/22 09:00 12/01/22 09:00 12/01/22 09:00 11/30/22 09:36 FiO2 30 11/30/22 06:58 Oxygen Flow Rate (L/min) 2 Oxygen Delivery Method Room Air Weight: 386 lb 11.053 oz Body Mass Index (BMI) 58.8 Intake & Output: Intake and Output for Last 24 Hours 11/29/22 11/30/22 12/01/22 23:59 23:59 23:59 Intake Total 1671.83 / 1671.83 600 / 600 540 / 540 Output Total 200 / 700 1300 / 1355 655 / 655 Balance 1471.83 / 971.83 -700 / -755 -115 / -115 Lab / Micro Data Result Diagrams: 12/01/22 06:40 12/01/22 06:40 Labs: Laboratory Results - last 24 hr 11/30/22 16:06: POC Glucose 287 H 11/30/22 21:13: POC Glucose 344 H 12/01/22 06:40: WBC 9.0, RBC 4.87, Hgb 13.7, Hct 43.0, MCV 88.3 D, MCH 28.1, MCHC 31.9 L, RDW Std Deviation 45.5 H, RDW Coeff of Jada 14.2, Plt Count 143 L, MPV 10.2, Immature Gran % (Auto) 0.400, Neut % (Auto) 70.4 H, Lymph % (Auto) 18.9 L, [place] % (Auto) 8.8, Eos % (Auto) 1.2, Baso % (Auto) 0.3, Absolute Neuts (auto) 6.3, Absolute Lymphs (auto) 1.69, Nucleated RBC % 0 12/01/22 06:40: Sodium 135 L, Potassium 4.5, Chloride 104, Carbon Dioxide 28.0, Anion Gap 3 L, BUN 23 H, Creatinine 0.85, Estim Creat Clear Calc 80.47, Est GFR (MDRD) Af Amer 115, Est GFR (MDRD) Non-Af 95, BUN/Creatinine Ratio 27.0 H, Glucose 260 H, Calcium 8.7 12/01/22 06:53: POC Glucose 249 H Micro: Microbiology 11/28/22 11:52 Urine, Catheterized Urine Culture - Preliminary Streptococcus agalactiae (B) 11/28/22 10:12 Blood Culture (Wb) - Anticubital Right Bacteria Detection (PCR) - Final Streptococcus agalactiae (B) 11/28/22 10:12 Blood Culture (Wb) - Anticubital Right Blood Culture - Final Streptococcus agalactiae (B) 11/28/22 10:30 Blood Culture (Wb) - Right Hand Blood Culture - Preliminary Streptococcus agalactiae (B) Radiography Diagnostic Testing: Radiology Impression Abdomen/Pelvis CT 11/30/22 10:47 IMPRESSION: No evidence of pyelonephritis. Scattered sigmoid diverticula. Fatty infiltration of the liver. Electronically Signed: Amilcar León MD at 13:15 EDT , Rhythm Strip Rhythm Strip: A-fib Rate: 136 Ectopy: None Physical Exam Const alert and oriented x3 Constitutional Narrative: obese General Appearance: cooperative and well developed Orientation / Consciousness: confused, disoriented and lethargic HEENT normocephalic, head/scalp atraumatic, hearing grossly normal bilaterally and moist oral mucous membranes Eyes PERRL and EOMs intact bilaterally Neck no lymphadenopathy and supple Lymph Lymphatic: no lymphadenopathy noted Resp normal respiratory effort, no retractions, no use of accessory muscles and clear to auscultation bilaterally Resp Narrative: mildly diminished breath sounds bibasally, no wheezes or crackles. On room air Cardio regular rate, regular rhythm, S1 normal heart sound and S2 normal heart sound GI normal to inspection, nondistended, normoactive bowel sounds, soft to palpation, non-tender and non-distended Extremity normal to inspection, full ROM and no clubbing, cyanosis or edema Extremity Narrative: mild erythema of LLE, with superficial ulceration on back of left calf. General Extremity: clubbing and cyanosis Neuro CN's II-XII intact bilaterally, moves all extremities and no focal motor deficits Neuro Narrative: confused. Sensorium / Orientation: awake and alert Motor Exam: strength 5/5 throughout Psych thought process normal Psych Narrative: confused Appearance: appropriate Assessment & Plan Assessment/Plan (1) Acute confusion: (2) Acute UTI: (3) Leukocytosis: (4) Atrial fibrillation with RVR: PLAN: Plan #Afib * RVR now resolved. * now on metoprolol. Weaned off cardiem drip * wean off cardizem drip as tolerated * switch to PO metoprolol * on eliquis * #Acute metabolic encephalopathy due to UTI * encephalopathy has resolved. Now alert and oriented. * urinalysis had 3+ bacteria * urine cultures growing Strep agalactiae * blood cultures growing Strep agalactiae * o IV ceftriaxone. * ID on board. Ceftriaxone dose increased to 2gram q24 * repeat blood cultures pending. * #Strep bacteremia * blood cultures positive for Strep agalactiae * ID on board * repeat blood cultures pending * on IV ceftriaxone * #UTi: as above #TYpe 2 diabetes mellitus * On Lantus 50 units nightly. * Insulin Sliding scale. Accu-Cheks ACHS. * #Hypertension: on metoprolol, losartan and amlodipine, which were held on admission due to afib wih RVR and being on cardizem drip DVT prophylaxis: eliquis CODE STATUS: full code * Charges/Coding Visit Charges Inpatient E&M: 66730 Subs Hosp L2
[2022-12-01 12:13] LABS: Bedside Glucose 361 mg/dL (74-106)
--- NOTE | 2022-12-01 13:48 | PCM.PN.ID ---
Physical Exam Narrative Feeling ok, some leg swelling, no fever Const alert and no apparent distress General Appearance: cooperative Resp normal air movement and clear to auscultation bilaterally Cardio regular rate and regular rhythm GI soft to palpation, non-tender and non-distended Extremity General Extremity: edema Skin Skin Narrative: mild erythema around BLE lower legs, no warmth, no drainage ID ID: Route of nutrition/ use of supplements: [] Nutritional Intake: [] IV Site: [] Franks Catheter: [] Assessment & Plan Assessment/Plan (1) Acute UTI: (2) Streptococcal bacteremia: PLAN: Strep bacteremia from suspected urinary vs skin source - CT showed no pyelo/stone/hydro. BLE edema, not clear that cellulitis is present. On ceftriaxone, will stop vanc. Will follow
[2022-12-01] MEDS: Nystatin Powder 15gm Bottle 1 APPLIC TOPICAL ×2 (15:09→21:51)
--- NOTE | 2022-12-01 15:40 | CASEMGMT ---
[facility] declined patient. [facility] accepted patient. SW spoke with patient and let him know. Patient chose [facility]. ALVARADO asked Norma garces/sami planning manager to notify [facility] and [facility]. Maureen CAO
--- NOTE | 2022-12-01 15:46 | CASEMGMT ---
[facility] notified via [facility] that they are facility of choice. Norma Ayala, Discharge Planning Asst.
[2022-12-01 17:41] LABS: Bedside Glucose 270 mg/dL (74-106)
[2022-12-01] MEDS: Metoprolol(XL)Succ 100 MG Tablet PO (21:42)
[2022-12-01] MEDS: Losartan Potassium 100 MG Tablet PO (21:43)
[2022-12-01] MEDS: amLODIPine 5 MG Tablet PO (21:43)
[2022-12-01] MEDS: Insulin Glargine-YFGN 100 UNIT/ML Pen 50 UNIT SC (21:46)
[2022-12-02] VITALS (8 sets, daily range): BP systolic 120–144; BP diastolic 60–70; PULSE 74–91; RESP 17–18; TEMP 36.6–36.9; O2SAT 93–97; BMI 59.2
[2022-12-02 01:47] LABS: Bedside Glucose 323 mg/dL (74-106)
[2022-12-02] MEDS: Insulin Lispro 100 UNIT/ML INSULN.PEN SC ×4 (06:23→22:20)
[2022-12-02] MEDS: Gabapentin 800 MG Tablet PO ×3 (06:25→22:11)
[2022-12-02 06:48] LABS: Bedside Glucose 187 mg/dL (74-106)
[2022-12-02 09:29] LABS: Absolute Lymphocyte Count 1.54 X10^3/uL (0.83-4.51); Absolute Neutrophil Count 6.4 X10^3/uL (2.0-7.7); Basophil# 0.05 X10^3/uL; Basophil% 0.6 % (0-1); Eosinophil# 0.13 X10^3/uL; Eosinophils% 1.5 % (0-5); Hematocrit 41.5 % (40-54); Hemoglobin 12.9 g/dL (13.0-16.5); Lymphocyte # 1.54 X10^3/ul (0.83-4.51); Lymphocyte % 17.4 % (19-41); Mean Corp Hgb Conc 31.1 g/dL (32-36); Mean Corpuscular Hgb 27.5 pg (27.0-32.0); Mean Corpuscular Volume 88.5 fL (80-94); Mean Platelet Vol. 10.3 fl (6.2-12.0); Monocyte# 0.71 X10^3/uL; NRBC Flagged by Analyzer 0 % (0-5); Neutrophil # 6.37 X10^3/uL (2.7-7.7); Neutrophil % 71.8 % (47-70); Platelet Count 147 K/mm3 (150-450); RBC Distribution Width CV 14.1 % (11.6-14.6); Red Blood Count 4.69 M/mm3 (4.6-6.2); White Blood Count 8.9 K/mm3 (4.4-11.0)
[2022-12-02] MEDS: metFORMIN HCl 1,000 MG Tablet 1000 MG PO ×2 (09:38→16:34)
[2022-12-02] MEDS: Multivitamins,Ther W-Minerals Tablet 1 TABLET PO (09:38)
[2022-12-02] MEDS: Ferrous Sulfate 325 MG Tablet PO (09:38)
[2022-12-02] MEDS: APIXABAN 5 MG TABLET PO ×2 (09:38→22:12)
[2022-12-02 10:45] LABS: Anion Gap 8 (5-15); BUN 16 mg/dL (7-18); BUN/Creat Ratio 24.4 RATIO (10-20); Calcium,Total 8.6 mg/dL (8.5-10.1); Chloride 106 mmol/L (98-107); Creatinine, Serum 0.66 mg/dL (0.70-1.30); EST Glomerular Filtration Rate 128 mL/min (>60); Est Glom Filt Rate - Afr Amer 155 mL/min (>60); Glucose 203 mg/dL (74-106); Potassium 4.1 mmol/L (3.5-5.1); Sodium Level 135 mmol/L (136-145)
--- NOTE | 2022-12-02 11:28 | PCM.PN.ID ---
Physical Exam Narrative Feeling about the same today, no fever, no abd pain Const alert and no apparent distress General Appearance: cooperative Resp normal air movement and clear to auscultation bilaterally Cardio regular rate and regular rhythm GI soft to palpation, non-tender and non-distended Extremity General Extremity: edema Skin Skin Narrative: Mild BLE erythema ID ID: Route of nutrition/ use of supplements: [] Nutritional Intake: [] IV Site: [] Franks Catheter: [] Assessment & Plan Assessment/Plan (1) Acute UTI: (2) Streptococcal bacteremia: PLAN: Strep bacteremia from suspected urinary vs skin source - CT showed no pyelo/stone/hydro. BLE edema, not clear that cellulitis is present. On ceftriaxone. Plan for discharge will be keflex 500mg tid with stop date 12/08/22. Will follow
[2022-12-02 12:07] LABS: Bedside Glucose 268 mg/dL (74-106)
--- NOTE | 2022-12-02 13:13 | PN_ITS ---
Subjective Subjective Patient seen and examined. He had no active complaints. He says he is feeling better but not completely at her baseline. Review of systems is otherwise negative. He has remained hemodynamically stable. Objective Data Objective Data Vital Signs: Vital Signs Temp Pulse Resp BP Pulse Ox O2 Del Method O2 Flow Rate 98.1 F 81 18 144/65 H 96 Room Air 2 12/02/22 09:27 12/02/22 09:27 12/02/22 09:27 12/02/22 09:27 12/02/22 09:27 12/02/22 09:32 11/30/22 09:36 FiO2 30 11/30/22 06:58 Oxygen Flow Rate (L/min) 2 Oxygen Delivery Method Room Air Weight: 389 lb 12.436 oz Body Mass Index (BMI) 59.2 Intake & Output: Intake and Output for Last 24 Hours 11/30/22 12/01/22 12/02/22 23:59 23:59 23:59 Intake Total 600 / 600 612.42 / 612.42 530 / 530 Output Total 1300 / 1355 655 / 2305 2750 / 2750 Balance -700 / -755 -42.58 / -1692.58 -2220 / -2220 Lab / Micro Data Result Diagrams: 12/02/22 09:04 12/02/22 09:04 Labs: Laboratory Results - last 24 hr 12/01/22 17:18: POC Glucose 270 H 12/01/22 21:45: POC Glucose 323 H 12/02/22 06:22: POC Glucose 187 H 12/02/22 09:04: WBC 8.9, RBC 4.69, Hgb 12.9 L, Hct 41.5, MCV 88.5, MCH 27.5, MCHC 31.1 L, RDW Std Deviation 45.0 H, RDW Coeff of Jada 14.1, Plt Count 147 L, MPV 10.3, Immature Gran % (Auto) 0.700, Neut % (Auto) 71.8 H, Lymph % (Auto) 17.4 L, [place] % (Auto) 8.0, Eos % (Auto) 1.5, Baso % (Auto) 0.6, Absolute Neuts (auto) 6.4, Absolute Lymphs (auto) 1.54, Nucleated RBC % 0 12/02/22 09:04: Sodium 135 L, Potassium 4.1, Chloride 106, Carbon Dioxide 21.0, Anion Gap 8, BUN 16, Creatinine 0.66 L, Estim Creat Clear Calc 68.40, Est GFR (MDRD) Af Amer 155, Est GFR (MDRD) Non-Af 128, BUN/Creatinine Ratio 24.4 H, Glucose 203 H, Calcium 8.6 12/02/22 11:37: POC Glucose 268 H Micro: Microbiology 11/28/22 10:30 Blood Culture (Wb) - Right Hand Blood Culture - Final Streptococcus agalactiae (B) 11/30/22 08:15 Blood Culture (Wb) - Left Hand Blood Culture - Preliminary No growth in 48 hours. 11/30/22 08:23 Blood Culture (Wb) - Right Hand Blood Culture - Preliminary No growth in 48 hours. 11/28/22 11:52 Urine, Catheterized Urine Culture - Final Streptococcus agalactiae (B) Presumptive C albicans 11/28/22 10:12 Blood Culture (Wb) - Anticubital Right Bacteria Detection ( PCR) - Final Streptococcus agalactiae (B) 11/28/22 10:12 Blood Culture (Wb) - Anticubital Right Blood Culture - Final Streptococcus agalactiae (B) Rhythm Strip Rhythm Strip: A-fib Rate: 136 Ectopy: None Physical Exam Const alert and oriented x3 Constitutional Narrative: obese General Appearance: cooperative and well developed Orientation / Consciousness: confused, disoriented and lethargic HEENT normocephalic, head/scalp atraumatic, hearing grossly normal bilaterally and moist oral mucous membranes Eyes PERRL and EOMs intact bilaterally Neck no lymphadenopathy and supple Lymph Lymphatic: no lymphadenopathy noted Resp normal respiratory effort, no retractions, no use of accessory muscles and clear to auscultation bilaterally Resp Narrative: mildly diminished breath sounds bibasally, no wheezes or crackles. On room air Cardio regular rate, regular rhythm, S1 normal heart sound and S2 normal heart sound Cardio Narrative: afib with RVR GI normal to inspection, nondistended, normoactive bowel sounds, soft to palpation, non-tender and non-distended Extremity normal to inspection, full ROM and no clubbing, cyanosis or edema Extremity Narrative: mild erythema of LLE, with superficial ulceration on back of left calf. Has improved significantly. General Extremity: clubbing and cyanosis Skin General Skin Exam: no breakdown Neuro CN's II-XII intact bilaterally, moves all extremities and no focal motor deficits Sensorium / Orientation: awake and alert Motor Exam: strength 5/5 throughout Psych thought process normal Appearance: appropriate Assessment & Plan Assessment/Plan (1) Acute confusion: (2) Acute UTI: (3) Leukocytosis: (4) Atrial fibrillation with RVR: PLAN: Plan #Afib * RVR now resolved. * now on metoprolol. * on eliquis * #Acute metabolic encephalopathy due to UTI * encephalopathy has resolved. Now alert and oriented. * urinalysis had 3+ bacteria * urine cultures growing Strep agalactiae * blood cultures growing Strep agalactiae * o IV ceftriaxone. * ID on board. Ceftriaxone dose increased to 2gram q24 * repeat blood cultures showed no growth after 48 hours. * per ID, to discharge on PO keflex 500mg tid with a stop date of 12/08/2022 * * #Strep bacteremia * blood cultures positive for Strep agalactiae * ID on board * repeat blood cultures showed no growth after 48 hours * on IV ceftriaxone * #UTi: as above #TYpe 2 diabetes mellitus * On Lantus 50 units nightly. * Insulin Sliding scale. Accu-Cheks ACHS. * #Hypertension: on metoprolol, losartan and amlodipine, DVT prophylaxis: eliquis CODE STATUS: full code * * Disposition; for DC to SNF tomorrow if precert obtained. Charges/Coding Visit Charges Inpatient E&M: 12301 Subs Hosp L2
[2022-12-02] MEDS: Nystatin Powder 15gm Bottle 1 APPLIC TOPICAL ×2 (15:02→22:15)
--- NOTE | 2022-12-02 15:39 | CASEMGMT ---
Patient will discharge to [facility] when ready. Maureen Dias [employer]IGGER [employer]NAL [employer]UE SERVICE AGENT
[2022-12-02 16:56] LABS: Bedside Glucose 292 mg/dL (74-106)
[2022-12-02] MEDS: Acetaminophen 325 MG Tablet 650 MG PO (20:37)
[2022-12-02] MEDS: Losartan Potassium 100 MG Tablet PO (22:11)
[2022-12-02] MEDS: Metoprolol(XL)Succ 100 MG Tablet PO (22:12)
[2022-12-02] MEDS: amLODIPine 5 MG Tablet PO (22:12)
[2022-12-02] MEDS: Insulin Glargine-YFGN 100 UNIT/ML Pen 50 UNIT SC (22:19)
[2022-12-03] VITALS (7 sets, daily range): BP systolic 119–125; BP diastolic 77–84; PULSE 86–91; RESP 18; TEMP 36.6; O2SAT 94–99; BMI 59.8
[2022-12-03 00:22] LABS: Bedside Glucose 238 mg/dL (74-106)
[2022-12-03] MEDS: Nystatin Powder 15gm Bottle 1 APPLIC TOPICAL (06:15)
[2022-12-03] MEDS: Gabapentin 800 MG Tablet PO (06:15)
[2022-12-03] MEDS: Insulin Lispro 100 UNIT/ML INSULN.PEN SC ×2 (06:19→11:17)
[2022-12-03 06:39] LABS: Bedside Glucose 184 mg/dL (74-106)
[2022-12-03 06:39] LABS: Absolute Lymphocyte Count 1.91 X10^3/uL (0.83-4.51); Basophil# 0.05 X10^3/uL; Basophil% 0.6 % (0-1); Eosinophils% 2.2 % (0-5); Lymphocyte # 1.91 X10^3/ul (0.83-4.51); Lymphocyte % 21.3 % (19-41); Mean Corp Hgb Conc 32.5 g/dL (32-36); Mean Corpuscular Hgb 27.5 pg (27.0-32.0); Mean Corpuscular Volume 84.7 fL (80-94); Mean Platelet Vol. 10.1 fl (6.2-12.0); Monocyte# 0.71 X10^3/uL; Monocyte% 7.9 % (0-10); NRBC Flagged by Analyzer 0 % (0-5); Neutrophil # 5.98 X10^3/uL (2.7-7.7); Neutrophil % 66.9 % (47-70); Platelet Count 191 K/mm3 (150-450); RBC Distribution Width CV 13.9 % (11.6-14.6); RBC Distribution Width SD 43.1 fl (35.1-43.9); Red Blood Count 4.72 M/mm3 (4.6-6.2)
[2022-12-03 07:10] LABS: Anion Gap 6 (5-15); BUN 17 mg/dL (7-18); BUN/Creat Ratio 27.8 RATIO (10-20); Calcium,Total 8.9 mg/dL (8.5-10.1); Chloride 104 mmol/L (98-107); Creatinine, Serum 0.61 mg/dL (0.70-1.30); EST Glomerular Filtration Rate 139 mL/min (>60); Est Glom Filt Rate - Afr Amer 169 mL/min (>60); Glucose 193 mg/dL (74-106); Sodium Level 139 mmol/L (136-145)
[2022-12-03] MEDS: APIXABAN 5 MG TABLET PO (09:19)
[2022-12-03] MEDS: Ferrous Sulfate 325 MG Tablet PO (09:19)
[2022-12-03] MEDS: Multivitamins,Ther W-Minerals Tablet 1 TABLET PO (09:19)
[2022-12-03] MEDS: metFORMIN HCl 1,000 MG Tablet 1000 MG PO (09:19)
--- NOTE | 2022-12-03 09:40 | TREXTCAR_ITS ---
Diet Diet Order/Speech Therapy: 11/28/22 13:56 Diet: Cardiac: Calorie-Controlled Food consistency:: Regular Liquid Consistency:: Regular/Thin Dietary Modifications:: Consistent Carbohydrate How many daily calories?: 1999 calorie Routine Orders/Code Status Enema Type: Fleetz Enema Frequency: Daily PRN Suppository Type: Dulcolax 10mg Suppository Frequency: Daily PRN O2 Frequency: PRN Keep PO Greater than or Equal to (%): 90 Wound(s) center abd under panus: Wound Type: excoriation groin/scrotum/bilat inner thighs: Wound Type: excoriation Right knee: Wound Type: Abrasion Therapies Weight Bearing: Weight bearing as tolerated Physical Therapy: Eval and Treat Occupational Therapy: Eval and Treat Problem/Diagnosis (1) Acute confusion: Status: Acute Code(s): R41.0 - Disorientation, unspecified (2) Acute UTI: Status: Acute Code(s): N39.0 - Urinary tract infection, site not specified (3) Leukocytosis: Status: Acute Code(s): D72.829 - Elevated white blood cell count, unspecified (4) Atrial fibrillation with RVR: Status: Acute Code(s): I48.91 - Unspecified atrial fibrillation Plan #Afib * RVR now resolved. * now on metoprolol. * on eliquis * #Acute metabolic encephalopathy due to UTI * encephalopathy has resolved. Now alert and oriented. * urinalysis had 3+ bacteria * urine cultures growing Strep agalactiae * blood cultures growing Strep agalactiae * o IV ceftriaxone. * ID on board. Ceftriaxone dose increased to 2gram q24 * repeat blood cultures showed no growth after 48 hours. * per ID, to discharge on PO keflex 500mg tid with a stop date of 12/08/2022 * * #Strep bacteremia * blood cultures positive for Strep agalactiae * ID on board * repeat blood cultures showed no growth after 48 hours * on IV ceftriaxone * #UTi: as above #TYpe 2 diabetes mellitus * On Lantus 50 units nightly. * Insulin Sliding scale. Accu-Cheks ACHS. * #Hypertension: on metoprolol, losartan and amlodipine, DVT prophylaxis: eliquis CODE STATUS: full code * * Disposition; for DC to SNF tomorrow if precert obtained. Allergies/Procedures Done in Hospital Allergies ampicillin Allergy (Verified 11/28/22 04:32) Unknown peanut Allergy (Verified 11/28/22 04:32) NEEDS FOLLOW-UP PEANUT BUTTER Penicillins Allergy (Verified 11/28/22 04:32) Unknown Type of Care/Length of Stay Estimated LOS: Convalescent Care Less Than 30 days Type of Care Needed: Skilled Rehab Potential: Fair Prognosis: Fair Additional Orders/Day of Discharge Day of Discharge: 12/03/22 Dietary and Speech Recommendations Dietitian Recommendations/Changes: Will adjust diet to 2000 calorie/consistent carbohydrate; cardiac. Will provide diet education prior to d/c. Recommend PCP referral to [facility] for ongoing education and follow-up. Discharge Plan Admission Admit Date/Time: 11/28/22 12:13 Primary Reason for Your Visit: UTI Attending Provider: Hilda Zimmerman Primary Care Provider: Bernabe Reese Consulting Providers: Gregorio Mccarthy Instructions Patient Instructions: Urinary Tract Infections in Men Discharge Orders/Prescriptions Prescriptions: New cephalexin 500 mg capsule 500 mg PO TID Qty: 18 0RF Continued Toujeo Max U-300 SoloStar 300 unit/mL (3 mL) insulin pen 50 unit subcut QHS ferrous sulfate [FeroSul] 325 mg (65 mg iron) tablet 325 mg PO DAILY Label Comments: TAKE 1 TABLET BY MOUTH TWICE DAILY metformin 1,000 MG tablet 1,000 mg PO BIDCM losartan 100 MG tablet 100 mg PO QHS amlodipine 5 MG tablet 5 mg PO QHS gtowcibd-xyx-RY-lycopen-lutein 1 EACH tablet 1 tablet PO DAILY metoprolol succinate [Toprol XL] 100 mg Tablet Extended Release 24 Hr 100 mg PO QHS apixaban 5 mg tablet 5 mg PO BID gabapentin 800 mg tablet 800 mg TID Label Comments: TAKE 1 TABLET THREE TIMES DAILY Referrals / Follow Up: Bernabe Reese MD [Primary Care Provider] - Within 2 Weeks Disposition Disposition (needs filled in before D/C Order can be placed): [facility]
--- NOTE | 2022-12-03 09:51 | PCM.DC.SUM ---
Providers Date of Admission: 11/28/22 Date of Discharge: 12/03/22 Primary Care Physician: Dr. Bernabe Reese MD Consultations 11/29/22 21:01 Consult: Infectious Disease Routine Consulting Provider: Gregorio Mccarthy Reason for Consult: strep agalactiae bacteremia EMERGENT Consult: No MD Notified: Yes Date Notified: 11/29/22 Time Notified: 06:48 Method of Notification: Text Reason For Visit: AFIB WITH RVR, UTI, MECHANICAL FALLS Diagnosis Discharge Diagnosis (1) Acute confusion: Status: Acute Code(s): R41.0 - Disorientation, unspecified (2) Acute UTI: Status: Acute Code(s): N39.0 - Urinary tract infection, site not specified (3) Leukocytosis: Status: Acute Code(s): D72.829 - Elevated white blood cell count, unspecified (4) Atrial fibrillation with RVR: Status: Acute Code(s): I48.91 - Unspecified atrial fibrillation Plan #Afib RVR now resolved. now on metoprolol. on eliquis #Acute metabolic encephalopathy due to UTI encephalopathy has resolved. Now alert and oriented. urinalysis had 3+ bacteria urine cultures growing Strep agalactiae blood cultures growing Strep agalactiae o IV ceftriaxone. ID on board. Ceftriaxone dose increased to 2gram q24 repeat blood cultures showed no growth after 48 hours. per ID, to discharge on PO keflex 500mg tid with a stop date of 12/08/2022 #Strep bacteremia blood cultures positive for Strep agalactiae ID on board repeat blood cultures showed no growth after 48 hours on IV ceftriaxone #UTi: as above #TYpe 2 diabetes mellitus On Lantus 50 units nightly. Insulin Sliding scale. Accu-Cheks ACHS. #Hypertension: on metoprolol, losartan and amlodipine, DVT prophylaxis: eliquis CODE STATUS: full code Disposition; for DC to SNF tomorrow if precert obtained. Medications at Discharge Home Medications losartan 100 mg tablet 100 mg PO QHS Check with primary doctor 04/04/14 metformin 1,000 mg tablet 1,000 mg PO BIDCM diabetes 04/04/14 amlodipine 5 mg tablet 5 mg PO QHS BP 10/01/20 pkcrqhkv-rec-disfr acid 300 mcg-lycopene 600 mcg-lutein 300 mcg tablet 1 tablet PO DAILY supplemetn 10/01/20 metoprolol succinate 100 mg tablet,extended release 24 hr (Toprol XL) 100 mg PO QHS Check with primary doctor 12/03/20 ferrous sulfate 325 mg (65 mg iron) tablet (FeroSul) 325 mg PO DAILY Check with primary doctor 03/12/22 insulin glargine U-300 conc 300 unit/mL (3 mL) subcutaneous pen (Toujeo Max U-300 SoloStar) 50 unit subcut QHS diabetes 09/27/22 apixaban 5 mg tablet 5 mg PO BID blood thinner 11/29/22 gabapentin 800 mg tablet 800 mg TID neuropathy 11/29/22 cephalexin 500 mg capsule 500 mg PO TID #18 caps 12/03/22 Hospital Course Operations None Procedures None Summary of Care Provided Minutes Spent on Discharge: 48 Hospital Course: LANI MARRERO, is a 67 M with a PMH as outlined who presents via the ED on 11/28/2022 with a complaint of mechanical fall. He said he was getting out of bed and fell and injured his knee. HE was seen in the ED then, and and xray done was negative. HE was sent home. He got home and fell again in his garage so he was brought back to the ED by the EMS. He couldnt give much of a history as he was confused. Patient was reviewed in the ED, and he was confused, and couldnt say much about why he was here. VItals in the ED were temp of 99.8F, WA of 120, BP of 138/88, RR of 20, and he was saturating at 92% on 2L of oxygen.? CBC showed hemoglobin of 14.8 with WBC of 16.6 and platelets of 152.? INR was 1.4 and chemistry was essentially normal apart from sodium of 132 and total bilirubin of 1.1. Urinlaysis was positive for 3+ bactereia and >100 wbc/HPF. CXR showed cardiac enlargement and no focal infiltrate or edema. CT of the brain showed chronic involutional changes. He was admitted to be managed for debility due to mechanical falls as well as UTI. HE also went into afib with RVR in the ED, and started on cardizem drip. His confusion subsequently resolved and he was weaned off cardizem. His blood cultures came back positive for strep agalactiae as well as urine cultures. ID was consulted. His ceftriaxone dose was increased to 2 g daily. Repeat blood culture showed no growth after 48 hours. He remained stable and was discharged to SNF on 12/03/2022 on p.o. Keflex 500 mg 3 times daily with stop date of 12/08/2022. Patient was seen and examined prior to discharge. He had no complaints. He had an uneventful night and review of systems otherwise negative. Labs and vitals reviewed. Home medication reviewed and reconciled. Physical Exam Const alert and oriented x3 Constitutional Narrative: obese General Appearance: cooperative, comfortable, well kempt and well developed Orientation / Consciousness: confused, disoriented and lethargic HEENT normocephalic, head/scalp atraumatic, hearing grossly normal bilaterally and moist oral mucous membranes Mouth: oral and palatal mucosa normal Eyes PERRL and EOMs intact bilaterally Neck no lymphadenopathy and supple Lymph Lymphatic: no lymphadenopathy noted Resp normal respiratory effort, no retractions, no use of accessory muscles and clear to auscultation bilaterally Resp Narrative: mildly diminished breath sounds bibasally, no wheezes or crackles. On room air Cardio regular rate, regular rhythm, S1 normal heart sound and S2 normal heart sound GI normal to inspection, nondistended, normoactive bowel sounds, soft to palpation, non-tender and non-distended Extremity normal to inspection, full ROM and no clubbing, cyanosis or edema Extremity Narrative: mild erythema of LLE, with superficial ulceration on back of left calf. Has largely resolved. General Extremity: clubbing and cyanosis Skin General Skin Exam: no breakdown Neuro oriented x3, CN's II-XII intact bilaterally, moves all extremities and no focal motor deficits Sensorium / Orientation: awake and alert Motor Exam: strength 5/5 throughout Psych thought process normal Appearance: appropriate Weight / BMI Weight Weight: 393 lb 1.347 oz Body Mass Index (BMI) 59.8 ABG / Lab / Microbiology Data Result Diagrams: 12/03/22 06:07 12/03/22 06:07 Laboratory: Laboratory Results - last 24 hr 12/02/22 09:04: Sodium 135 L, Potassium 4.1, Chloride 106, Carbon Dioxide 21.0, Anion Gap 8, BUN 16, Creatinine 0.66 L, Estim Creat Clear Calc 68.40, Est GFR (MDRD) Af Amer 155, Est GFR (MDRD) Non-Af 128, BUN/Creatinine Ratio 24.4 H, Glucose 203 H, Calcium 8.6 12/02/22 11:37: POC Glucose 268 H 12/02/22 16:31: POC Glucose 292 H 12/02/22 22:19: POC Glucose 238 H 12/03/22 06:07: WBC 9.0, RBC 4.72, Hgb 13.0, Hct 40.0, MCV 84.7, MCH 27.5, MCHC 32.5, RDW Std Deviation 43.1, RDW Coeff of Jada 13.9, Plt Count 191, MPV 10.1, Immature Gran % (Auto) 1.100 H, Neut % (Auto) 66.9, Lymph % (Auto) 21.3, [place] % (Auto) 7.9, Eos % (Auto) 2.2, Baso % (Auto) 0.6, Absolute Neuts (auto) 6.0, Absolute Lymphs (auto) 1.91, Nucleated RBC % 0 12/03/22 06:07: Sodium 139, Potassium 4.0, Chloride 104, Carbon Dioxide 29.0, Anion Gap 6, BUN 17, Creatinine 0.61 L, Estim Creat Clear Calc 68.40, Est GFR (MDRD) Af Amer 169, Est GFR (MDRD) Non-Af 139, BUN/Creatinine Ratio 27.8 H, Glucose 193 H, Calcium 8.9 12/03/22 06:18: POC Glucose 184 H Microbiology: Microbiology 11/28/22 10:30 Blood Culture (Wb) - Right Hand Blood Culture - Final Streptococcus agalactiae (B) 11/30/22 08:15 Blood Culture (Wb) - Left Hand Blood Culture - Preliminary No growth in 48 hours. 11/30/22 08:23 Blood Culture (Wb) - Right Hand Blood Culture - Preliminary No growth in 48 hours. 11/28/22 11:52 Urine, Catheterized Urine Culture - Final Streptococcus agalactiae (B) Presumptive C albicans 11/28/22 10:12 Blood Culture (Wb) - Anticubital Right Bacteria Detection (PCR) - Final Streptococcus agalactiae (B) 11/28/22 10:12 Blood Culture (Wb) - Anticubital Right Blood Culture - Final Streptococcus agalactiae (B) D/C Instructions Discharge Diet: Low fat / Low cholesterol Discharge Activity: Return to Normal Activity Weight Bearing Status: Weight bearing as tolerated Call your doctor if you observe: Fever of 101 or Higher, Inability to urinate, Shortness of breath, Dizziness, Swelling in the ankles and Chest pain Meaningful Use Info Meaningful Use Diagnoses (Choose all that apply): None applicable Discharge Plan Admission Admit Date/Time: 11/28/22 12:13 Primary Reason for Your Visit: UTI Attending Provider: Hilda Zimmerman Primary Care Provider: Bernabe Reese Consulting Providers: Gregorio Mccarthy Instructions Patient Instructions: Urinary Tract Infections in Men Discharge Orders/Prescriptions Prescriptions: New cephalexin 500 mg capsule 500 mg PO TID Qty: 18 0RF Continued Toujeo Max U-300 SoloStar 300 unit/mL (3 mL) insulin pen 50 unit subcut QHS ferrous sulfate [FeroSul] 325 mg (65 mg iron) tablet 325 mg PO DAILY Label Comments: TAKE 1 TABLET BY MOUTH TWICE DAILY metformin 1,000 MG tablet 1,000 mg PO BIDCM losartan 100 MG tablet 100 mg PO QHS amlodipine 5 MG tablet 5 mg PO QHS gldnuath-muk-EE-lycopen-lutein 1 EACH tablet 1 tablet PO DAILY metoprolol succinate [Toprol XL] 100 mg Tablet Extended Release 24 Hr 100 mg PO QHS apixaban 5 mg tablet 5 mg PO BID gabapentin 800 mg tablet 800 mg TID Label Comments: TAKE 1 TABLET THREE TIMES DAILY Referrals / Follow Up: Bernabe Reese MD [Primary Care Provider] - Within 2 Weeks Disposition Disposition (needs filled in before D/C Order can be placed): [facility] Charges/Coding Visit Charges Inpatient E&M: 94775 Disch Hosp >30min
--- NOTE | 2022-12-03 09:57 | PHA.DC.MR ---
Pharmacy Service has performed discharge medication reconciliation for this patient. The patient's discharge medication list was reviewed for discrepancies and discrepancies were resolved. Home Medications losartan 100 mg tablet 100 mg PO QHS Check with primary doctor 04/04/14 metformin 1,000 mg tablet 1,000 mg PO BIDCM diabetes 04/04/14 amlodipine 5 mg tablet 5 mg PO QHS BP 10/01/20 xxaubtky-cdf-yylaa acid 300 mcg-lycopene 600 mcg-lutein 300 mcg tablet 1 tablet PO DAILY supplemetn 10/01/20 metoprolol succinate 100 mg tablet,extended release 24 hr (Toprol XL) 100 mg PO QHS Check with primary doctor 12/03/20 ferrous sulfate 325 mg (65 mg iron) tablet (FeroSul) 325 mg PO DAILY Check with primary doctor 03/12/22 insulin glargine U-300 conc 300 unit/mL (3 mL) subcutaneous pen (Toujeo Max U-300 SoloStar) 50 unit subcut QHS diabetes 09/27/22 apixaban 5 mg tablet 5 mg PO BID blood thinner 11/29/22 gabapentin 800 mg tablet 800 mg TID neuropathy 11/29/22 cephalexin 500 mg capsule 500 mg PO TID #18 caps 12/03/22
--- NOTE | 2022-12-03 10:35 | CASEMGMT ---
Patient is ready for discharge to [place]. SW completed 7000 in [place]. Await med list and COVID test. Maureen Dias SECRETARY TO THE VICE PRESIDENT [facility]
[2022-12-03 11:49] LABS: Bedside Glucose 218 mg/dL (74-106)
--- NOTE | 2022-12-03 12:15 | CASEMGMT ---
Patient will be discharged to [facility] under skilled level of care on a convalescent stay. Physicians will transport patient via wheelchair van. Maureen CAO
--- NOTE | 2022-12-03 12:18 | CASEMGMT ---
ALVARADO called patient's sister Norma as she was concerned as to whether or not patient had a healthcare power of transactional attorney. ALVARADO let Norma know that patient does have a healthcare power of transactional attorney and she is his Healthcare Power of Electrical And Instrumentation Manager. She thanked ALVARADO for the update and she was aware patient will be leaving to go to [facility] today. Plan: d/c to [place] under skilled level of care on a convalescent stay. Physicians will transport patient. Maureen CAO
--- NOTE | 2022-12-03 12:26 | CASEMGMT ---
Discharge Planning Discharge orders, signed med list, covid results, and pickup time sent to [facility] via [facility]. Patient will be transferred in by Phys[facility]. SW, nursing, and patients son, Rogelio, notified. Norma Ayala, Discharge Planning Asst.
--- NOTE | 2022-12-03 12:29 | NURSING ---
Report called to nurse Arriaga for pt to be d/c to [facility]. 1400 scheduled p/u time.
== END 2022-12-03 14:58 | disposition skilled nursing facility (03) | DRG 871 ==
LOC: ED 12:19 → PCU 12:31
PROVIDERS: Admitting Provider Student in an Organized Health Care Education/Training Program; Emergency Provider Emergency Medicine; PCP Family Medicine; Visit Provider Student in an Organized Health Care Education/Training Program
DX: R78.81 Bacteremia (principal); G93.41 Metabolic encephalopathy; L97.221 Non-pressure chronic ulcer of left calf limited to breakdown of skin; Z68.43 Body mass index [BMI] 50.0-59.9, adult; N39.0 Urinary tract infection, site not specified; S09.90XA Unspecified injury of head, initial encounter; E11.40 Type 2 diabetes mellitus with diabetic neuropathy, unspecified; E11.622 Type 2 diabetes mellitus with other skin ulcer; B95.1 Streptococcus, group B, as the cause of diseases classified elsewhere; E11.65 Type 2 diabetes mellitus with hyperglycemia; I48.0 Paroxysmal atrial fibrillation; Z79.4 Long term (current) use of insulin; E66.01 Morbid (severe) obesity due to excess calories; M17.11 Unilateral primary osteoarthritis, right knee; I10 Essential (primary) hypertension; E78.5 Hyperlipidemia, unspecified; W06.XXXA Fall from bed, initial encounter; Y92.009 Unspecified place in unspecified non-institutional (private) residence as the place of occurrence of the external cause; Z79.01 Long term (current) use of anticoagulants; Z79.84 Long term (current) use of oral hypoglycemic drugs; Z79.899 Other long term (current) drug therapy; Z87.891 Personal history of nicotine dependence
CPT/HCPCS: 36415; 70450; 71045; 73562; 74177; 80048; 80053; 81001; 82077; 82550; 82962; 83605; 84484; 85025; 85610; 85730; 87040; 87077; 87086; 87088; 87149; 87186; 87426; 93005; 93306; 94002; 94003; 94762; 97110; 97116; 97162; 97166; 97530; 97535; 97802; 99284; 99285; J7030; J7040; P9612; Q9957; Q9967; A4216; C8929; J0696

== ENCOUNTER → 2023-04-15 | Outpatient (CLI) | payer MEDICARE, OTHER, SELFPAY ==
[2023-04-15 17:41] LABS: Absolute Lymphocyte Count 2.21 X10^3/uL (0.83-4.51); Absolute Neutrophil Count 5.7 X10^3/uL (2.0-7.7); Basophil# 0.06 X10^3/uL; Basophil% 0.7 % (0-1); Eosinophil# 0.18 X10^3/uL; Eosinophils% 2.1 % (0-5); Hematocrit 42.6 % (40-54); Lymphocyte # 2.21 X10^3/ul (0.83-4.51); Lymphocyte % 25.3 % (19-41); Mean Corp Hgb Conc 30.5 g/dL (32-36); Mean Corpuscular Hgb 25.9 pg (27.0-32.0); Mean Corpuscular Volume 84.9 fL (80-94); Mean Platelet Vol. 10.3 fl (6.2-12.0); Monocyte# 0.54 X10^3/uL; Monocyte% 6.2 % (0-10); NRBC Flagged by Analyzer 0 % (0-5); Neutrophil # 5.72 X10^3/uL (2.7-7.7); Neutrophil % 65.4 % (47-70); Platelet Count 218 K/mm3 (150-450); RBC Distribution Width CV 14.2 % (11.6-14.6); RBC Distribution Width SD 43.5 fl (35.1-43.9); Red Blood Count 5.02 M/mm3 (4.6-6.2); White Blood Count 8.7 K/mm3 (4.4-11.0)
[2023-04-15 18:04] LABS: Hemoglobin A1c 10.2 % (3.8-5.6)
[2023-04-15 18:19] LABS: ALB/GLOB Ratio 0.7 RATIO (0.9-2.4); AST(SGOT) 20 U/L (15-37); Alanine Aminotransfer ALT/SGPT 25 U/L (16-61); Albumin, Serum 3.2 g/dL (3.2-5.0); Alkaline Phosphatase 82 U/L (45-117); Anion Gap 4 (5-15); BUN 21 mg/dL (7-18); Calcium,Total 9.8 mg/dL (8.5-10.1); Chloride 102 mmol/L (98-107); Cholesterol 127 mg/dL (200); Creatinine, Serum 1.05 mg/dL (0.70-1.30); EST Glomerular Filtration Rate 75 mL/min (>60); Est Glom Filt Rate - Afr Amer 90 mL/min (>60); Ferritin 33 ng/mL (26-388); Globulin 4.6 g/dL (2.2-4.2); Glucose 322 mg/dL (74-106); High Density Lipoprotein 37 mg/dL; Iron 71 ug/dL (65-175); Iron Binding Capacity,Total 368 ug/dL (250-450); PSA,Total - Annual Screen 2.52 ng/mL (0.00-4.00); Potassium 4.6 mmol/L (3.5-5.1); Protein, Total 7.8 g/dL (6.4-8.2); Sodium Level 137 mmol/L (136-145); Thyroid Stim Hormone (TSH) 1.07 uIU/mL (0.358-3.74); Triglycerides 283 mg/dL; Very Low Density Lipoprotein 57 mg/dL (5-40)
== END | disposition home or self-care (01) ==
LOC: MFPLAB 14:42
PROVIDERS: PCP Family Medicine; Visit Provider Family Medicine
DX: I48.91 Unspecified atrial fibrillation (principal); E11.9 Type 2 diabetes mellitus without complications; E61.1 Iron deficiency; Z12.5 Encounter for screening for malignant neoplasm of prostate
CPT/HCPCS: 36415; 80053; 80061; 82728; 83036; 83540; 83550; 83735; 84153; 84443; 85025; G0103

== ENCOUNTER 2023-05-21 12:47 | Inpatient (IN) | payer MEDICARE, OTHER, SELFPAY ==
[2023-05-21] VITALS (10 sets, daily range): BP systolic 112–160; BP diastolic 67–90; PULSE 54–92; RESP 15–20; TEMP 36.4–37.3; O2SAT 92–98; BMI 59.6; BMI 56.5
--- NOTE | 2023-05-21 12:51 | EKG12_ITS ---
Test Reason : Blood Pressure : / mmHG Vent. Rate : 080 BPM Atrial Rate : 000 BPM P-R Int : 000 ms QRS Dur : 100 ms QT Int : 376 ms P-R-T Axes : 000 014 008 degrees QTc Int : 433 ms Atrial fibrillation with premature ventricular or aberrantly conducted complexes Abnormal ECG Confirmed by MARIO STERLING, AMY ([id number]), editor at large KADE ULLOA ([id number]) on 05/23/2023 9:45:46 AM Referred By: ZIA Confirmed By:AMY MARTIN MD
--- NOTE | 2023-05-21 12:53 | EX.ED.DYSGE1 ---
HPI <MICA Hoang - Last Filed: 05/21/23 12:58> History of Present Illness Chief Complaint: Shortness of Breath Narrative Narrative: Patient is a 67-year-old male with history of morbid obesity, atrial fibrillation on Eliquis, type 2 diabetes, significant neuropathy, hypertension who presents to the emergency department 2 days of generalized feeling of unwell, shortness of breath, weakness. Patient is concerned for multiple things. He is concerned because he is short of breath, he is also concerning because he feels more weak and he is concerned he might have a UTI. He denies any sick contacts. He denies any cough, congestion. He denies any recent falls. [facility] <MICA Hoang - Last Filed: 05/21/23 12:58> [facility] Medical History (Updated 05/21/23 @ 15:[address] Edward Luevano, ) Alcohol use Ambulates with cane Anxiety Arthritis Atrial fibrillation Bilateral leg edema BiPAP (biphasic positive airway pressure) dependence [facility] follow-up encounter Chronic anticoagulation Chronic cellulitis Depression Diabetes Dietary restriction Essential (primary) hypertension Fall Former smoker History of echocardiogram History of edema History of pain when walking History of ulceration HTN (hypertension) Hyperglycemia due to diabetes mellitus Hyperlipidemia Insulin dependent diabetes mellitus Leg cramps Low iron Lower extremity neuropathy Morbid obesity New onset atrial fibrillation (10/01/20) Obstructive sleep apnea Pickwickian syndrome Restless legs Shortness of breath on exertion Streptococcal bacteremia Thyroid nodule Type 2 diabetes mellitus Wears glasses Home Medications losartan 100 mg tablet 100 mg PO QHS Check with primary doctor 04/04/14 [History Last Taken 12/03/20] metformin 1,000 mg tablet 1,000 mg PO BIDCM diabetes 04/04/14 [History Last Taken 12/03/20] amlodipine 5 mg tablet 5 mg PO QHS BP 10/01/20 [History Last Taken 12/03/20] btidsumn-ej-vyyxq 300 mcg-K 60 mcg-lycop 600 mcg-lutein 300 mcg tablet 1 tablet PO DAILY supplemetn 10/01/20 [History Last Taken 09/30/20] metoprolol succinate 100 mg tablet,extended release 24 hr (Toprol XL) 100 mg PO QHS Check with primary doctor 12/03/20 [History Last Taken 12/03/20] ferrous sulfate 325 mg (65 mg iron) tablet (FeroSul) 325 mg PO DAILY Check with primary doctor 03/12/22 [History Last Taken 04/26/22] insulin glargine U-300 conc 300 unit/mL (3 mL) subcutaneous pen (Toujeo Max U-300 SoloStar) 50 unit subcut HS diabetes 09/27/22 [History Last Taken Unknown] apixaban 5 mg tablet 5 mg PO BID blood thinner 11/29/22 [History Last Taken Unknown] gabapentin 800 mg tablet 800 mg TID neuropathy 11/29/22 [History Last Taken Unknown] rosuvastatin 10 mg tablet 10 mg PO DAILY 03/24/23 [History Last Taken Unknown] Allergy/AdvReac Type Severity Reaction Status Date / Time ampicillin Allergy Unknown Verified 03/24/23 10:59 peanut Allergy NEEDS Verified 11/28/22 04:32 FOLLOW-UP Penicillins Allergy Unknown Verified 11/28/22 04:32 Family History Mother Heart disease Diabetes Father Heart disease Cancer Surgical History History of amputation of toe History of wisdom tooth extraction Social History Smoking Status: Former smoker how long ago did patient quit smokin alcohol intake: never substance use type: does not use caffeine: Yes ROS <MICA Hoang - Last Filed: 05/21/23 12:58> ROS ED ROS Narrative Constitutional: Negative for fever, chills, weight loss. Positive for weakness Eyes: Negative for vision loss, vision change, double vision ENT: Negative for any sore throat, ear pain, congestion Cardiovascular: Negative for any chest pain, tightness, palpitations Respiratory: Negative for any cough, sputum production, hemoptysis. Positive for dyspnea, dyspnea on exertion, orthopnea Gastrointestinal: Negative for any abdominal pain, nausea, vomiting, diarrhea, constipation, blood in stool, blood in vomit : Negative for any urinary frequency, dysuria, retention, blood in urine Muscle skeletal: Negative for any myalgias, arthralgias, neck pain, back pain. Positive bilateral leg pain Neurological: Negative for any headache, syncope, numbness or tingling, dizziness Skin: Negative for any rashes, lumps, itching, abrasions, lacerations Psychiatric: Negative for any depression, anxiety, stress, suicidal ideation, homicidal ideation Hematologic: Negative for any easy bruising, excessive bruising, easy bleeding Allergies: Negative for any eczema, hives, rash EXAM <Sourav AlbertcurtisMICA posey - Last Filed: 05/21/23 12:58> Physical Exam Narrative Exam Narrative: Vital signs reviewed. Patient on initial evaluation did not look short of breath, patient was 96% on room air patient had no conversational dyspnea. HEET: Head normocephalic atraumatic, TMs clear bilaterally. Posterior pharynx is clear, moist mucous membranes. Nares clear bilaterally. Neck: Supple with no lymphadenopathy or tenderness. No signs of meningismus. Cardiac: Irregular rate, history of A-fib no murmurs gallops or rubs, equal peripheral pulses bilaterally. Respiratory: Lungs clear to auscultation bilaterally. Examination limited secondary to large body habitus. No chest tenderness. Abdomen: Soft, nontender, nondistended. No abdominal bruit or pulsatile masses. No hepatosplenomegaly Extremities: Patient does have bilateral lower leg edema, patient's right leg is significantly more red, more warm to the touch. Concern for infection/cellulitis., no signs of gross trauma or deformity. Active full range of motion of all extremities. Neuro: Cranial nerves II through XII intact, no focal neurological deficits. Skin: Clean dry and intact with no rash, purpura, petechiae, vesicles or pustules. Backs/flank: No CVA tenderness, no midline spinal tenderness, no deformity. Psych: Normal mood and affect. No SI, HI or acute psychosis. Const Vital Signs: 05/21/23 12:47 05/21/23 12:57 05/21/23 12:50 Temperature 99.2 F H Temperature Source Oral Pulse Rate 80 81 Respiratory Rate 20 H 20 H Respiratory Effort Normal Non-Labored Respiratory Depth Normal Respiratory Pattern Normal Blood Pressure 143/70 H 119/90 H Blood Pressure Mean 94 99 Pulse Ox 95 95 Oxygen Delivery Method Room Air Room Air Room Air 05/21/23 15:09 Temperature Temperature Source Pulse Rate 79 Respiratory Rate 15 Respiratory Effort Respiratory Depth Respiratory Pattern Blood Pressure 112/67 Blood Pressure Mean 82 Pulse Ox 92 Oxygen Delivery Method Room Air <Dr. Edward Luevano DO - Last Filed: 05/21/23 15:49> Physical Exam Const Vital Signs: 05/21/23 12:47 05/21/23 12:57 05/21/23 12:50 Temperature 99.2 F H Temperature Source Oral Pulse Rate 80 81 Respiratory Rate 20 H 20 H Respiratory Effort Normal Non-Labored Respiratory Depth Normal Respiratory Pattern Normal Blood Pressure 143/70 H 119/90 H Blood Pressure Mean 94 99 Pulse Ox 95 95 Oxygen Delivery Method Room Air Room Air Room Air 05/21/23 15:09 Temperature Temperature Source Pulse Rate 79 Respiratory Rate 15 Respiratory Effort Respiratory Depth Respiratory Pattern Blood Pressure 112/67 Blood Pressure Mean 82 Pulse Ox 92 Oxygen Delivery Method Room Air MDM <MICA Hoang - Last Filed: 05/21/23 12:58> [facility] Lab Data Labs: Laboratory Results - last 24 hr 05/21/23 05/21/23 13:25 15:05 WBC 10.6 RBC 4.93 Hgb 12.8 L Hct 41.7 MCV 84.6 MCH 26.0 L MCHC 30.7 L RDW Std Deviation 43.4 RDW Coeff of Jada 14.2 Plt Count 173 MPV 11.0 Immature Gran % (Auto) 0.400 Neut % (Auto) 74.4 H Lymph % (Auto) 16.0 L [place] % (Auto) 7.7 Eos % (Auto) 1.0 Baso % (Auto) 0.5 Absolute Neuts (auto) 7.9 H Absolute Lymphs (auto) 1.70 Nucleated RBC % 0 Sodium 136 Potassium 3.9 Chloride 100 Carbon Dioxide 32.0 Anion Gap 4 L BUN 16 Creatinine 0.94 Estim Creat Clear Calc 72.77 Est GFR (MDRD) Af Amer 102 Est GFR (MDRD) Non-Af 84 BUN/Creatinine Ratio 17.0 Glucose 293 H Lactic Acid 2.7 H* Calcium 9.2 Troponin I High Sens 10 B-Natriuretic Peptide 29.8 Urine Color Yellow Urine Clarity Clear Urine pH 5.0 Ur Specific [place] 1.020 Urine Protein 30 H Urine Glucose (UA) 1000 H Urine Ketones 5 H Urine Occult Blood 10 H Urine Nitrite Negative Urine Bilirubin Negative Urine Urobilinogen Normal Ur Leukocyte Esterase Negative Urine RBC 0 SEEN Urine WBC 0 SEEN Ur Squamous Epith Cells 0-5 SEEN Uric Acid Crystals RARE Urine Bacteria RARE Urine Mucus 0 SEEN Radiography Diagnostic Testing: Clinical Impression(s) from Imaging Studies Chest X-Ray 05/21/23 13:19 IMPRESSION: No acute cardiopulmonary pathology and no significant interval change when compared to 11/28/2022. Electronically Signed: Mateo Huston MD at 13:34 EST , Treatment and Re-Evaluation :: Patient appears to be in no obvious respiratory distress, vital signs are stable. Presenting to the emergency department for weakness, feeling of shortness of breath, generalized illness. Patient will receive a full septic work-up with 2 sets of blood cultures, lactic acidosis. Differential diagnosis includes UTI, sepsis, right leg cellulitis, COVID-19, influenza, pneumonia, electrolyte abnormalities. Patient right leg is concerning for cellulitis, there is low suspicion for any DVT secondary to the patient being on Eliquis and not missing any doses. Patient did smell of urine, UTI is also in the differential, this will be tested. Patient will receive basic laboratory values. Patient will not receive any IV fluids at this time. Chest x-ray will be completed as well as COVID-19 and flu. <Dr. Edward Luevano, DO - Last Filed: 05/21/23 15:49> [facility] Narrative Medical decision making narrative: I have personally performed a face to face assessment of the patient and have reviewed the MADHURI Note. I performed a substantive portion of the visit including all aspects of the following. My mast findings include: History is [patient presents to the emergency department with concern for possible urinary tract infection. Complains of dysuria and foul odor from urine for several days. He states that he had a urinary tract infection he thinks in November or December of this year. Patient has had subjective fever at home. Also states that his right leg is been red for about a week. Denies back pain. He denies chest pain or shortness of breath currently. Patient lives alone and just generally feels weak.] Exam is [HEENT-PERRLA, EOMI. Cranial nerves II through XII grossly intact. TMs clear. Mucous membranes moist. No adenopathy. Cardiovascular-regular rate and rhythm without murmur or ectopy Lungs-clear to auscultation, chest wall stable without crepitus or subcu emphysema Abdomen-normoactive bowel sounds, soft, nontender, no rebound or rigidity, no peritoneal signs. Extremities-intact ?4, normal range of motion, normal pulses, atraumatic]. Right lower extremity-patient has diffuse erythema of the right lower extremity consistent with cellulitis. It is warm to the touch. Neurovascularly intact. Medical Decison Making [patient with concern for UTI due to some dysuria and generally feeling weak. Patient also with redness and swelling to his right leg concerning for cellulitis. IV line established. CBC with differential obtained showed a normal white count of 10.6 with hemoglobin 12.8 and platelet count of 173. Chemistries unremarkable. Glucose elevated to 93 and lactate was slightly elevated 2.7. Urinalysis was unremarkable. 1 view chest x-ray unremarkable. COVID and flu testing was negative. Patient tells me he is no more short of breath than usual he states that he is just old and overweight. Patient tells me he can manage at home and feels safe going home. I will start him on Keflex and Bactrim for the suspected cellulitis of his right leg. I do not feel patient is septic. Clinically looks well.] I did ambulate the patient in the emergency department his O2 saturation dropped to 86% and he was dyspneic. Case will be discussed with hospitalist to evaluate patient for admission. Other additions or changes: [None] Lab Data Attestation: I reviewed the patient's lab results. Labs: Laboratory Results - last 24 hr 05/21/23 05/21/23 13:25 15:05 WBC 10.6 RBC 4.93 Hgb 12.8 L Hct 41.7 MCV 84.6 MCH 26.0 L MCHC 30.7 L RDW Std Deviation 43.4 RDW Coeff of Jada 14.2 Plt Count 173 MPV 11.0 Immature Gran % (Auto) 0.400 Neut % (Auto) 74.4 H Lymph % (Auto) 16.0 L [place] % (Auto) 7.7 Eos % (Auto) 1.0 Baso % (Auto) 0.5 Absolute Neuts (auto) 7.9 H Absolute Lymphs (auto) 1.70 Nucleated RBC % 0 Sodium 136 Potassium 3.9 Chloride 100 Carbon Dioxide 32.0 Anion Gap 4 L BUN 16 Creatinine 0.94 Estim Creat Clear Calc 72.77 Est GFR (MDRD) Af Amer 102 Est GFR (MDRD) Non-Af 84 BUN/Creatinine Ratio 17.0 Glucose 293 H Lactic Acid 2.7 H* Calcium 9.2 Troponin I High Sens 10 B-Natriuretic Peptide 29.8 Urine Color Yellow Urine Clarity Clear Urine pH 5.0 Ur Specific [place] 1.020 Urine Protein 30 H Urine Glucose (UA) 1000 H Urine Ketones 5 H Urine Occult Blood 10 H Urine Nitrite Negative Urine Bilirubin Negative Urine Urobilinogen Normal Ur Leukocyte Esterase Negative Urine RBC 0 SEEN Urine WBC 0 SEEN Ur Squamous Epith Cells 0-5 SEEN Uric Acid Crystals RARE Urine Bacteria RARE Urine Mucus 0 SEEN Radiography Diagnostic Testing: Clinical Impression(s) from Imaging Studies Chest X-Ray 05/21/23 13:19 IMPRESSION: No acute cardiopulmonary pathology and no significant interval change when compared to 11/28/2022. Electronically Signed: Mateo Huston MD at 13:34 EST Reading Location ID and State: [address] [place] [id number] , Service support , 1 view chest x-ray obtained interpreted by myself as no evidence of infiltrate or pneumothorax or acute process. Radiology in agreement. EKG Initial EKG: Attestation: I personally reviewed and interpreted this EKG as follows: Comments: Atrial fibrillation with rate of [address] changes and occasional PVCs Discharge Plan Dx/Rx/DC Orders Clinical Impression: Cellulitis of right leg, Dysuria, Weakness, Hypoxemia Disposition Disposition: Acute Care [facility]
--- NOTE | 2023-05-21 13:19 | RAD_ITS ---
EXAM: XR CHEST, 1 VIEW CLINICAL INDICATION: chest pain TECHNIQUE: Frontal view of the chest. COMPARISON: 11/28/2022. FINDINGS: LUNGS AND PLEURAL SPACES: Mild pulmonary hypoinflation. No suspicious infiltrates. No pneumothorax. No effusion. HEART: Cardiomegaly is unchanged. MEDIASTINUM: Central airways and mediastinal contour are unremarkable. BONES/JOINTS: Unremarkable. No acute fracture. SOFT TISSUES: Unremarkable. RAD/Chest 1 View (Portable) IMPRESSION: No acute cardiopulmonary pathology and no significant interval change when compared to 11/28/2022. Electronically Signed: Mateo Huston MD at 13:34 EST ,
[2023-05-21 13:45] LABS: Absolute Neutrophil Count 7.9 X10^3/uL (2.0-7.7); Basophil# 0.05 X10^3/uL; Basophil% 0.5 % (0-1); Eosinophil# 0.11 X10^3/uL; Hematocrit 41.7 % (40-54); Hemoglobin 12.8 g/dL (13.0-16.5); Mean Corp Hgb Conc 30.7 g/dL (32-36); Mean Corpuscular Volume 84.6 fL (80-94); Monocyte# 0.82 X10^3/uL; Monocyte% 7.7 % (0-10); NRBC Flagged by Analyzer 0 % (0-5); Neutrophil % 74.4 % (47-70); Platelet Count 173 K/mm3 (150-450); RBC Distribution Width CV 14.2 % (11.6-14.6); RBC Distribution Width SD 43.4 fl (35.1-43.9); Red Blood Count 4.93 M/mm3 (4.6-6.2); White Blood Count 10.6 K/mm3 (4.4-11.0)
[2023-05-21 13:58] LABS: Anion Gap 4 (5-15); BUN 16 mg/dL (7-18); Calcium,Total 9.2 mg/dL (8.5-10.1); Chloride 100 mmol/L (98-107); Creatinine, Serum 0.94 mg/dL (0.70-1.30); EST Glomerular Filtration Rate 84 mL/min (>60); Est Glom Filt Rate - Afr Amer 102 mL/min (>60); Estimated Creatinine Clearance 72.77 ml/min; Glucose 293 mg/dL (74-106); Potassium 3.9 mmol/L (3.5-5.1); Sodium Level 136 mmol/L (136-145); Troponin-I HS (w/2H Reflex) 10 pg/mL (3.0-78.0)
[2023-05-21 14:08] LABS: Lactic Acid 2.7 mmol/L (0.4-1.9)
[2023-05-21 15:00] LABS: BNP,B-Type NATRIURETIC PEPTIDE 29.8 pg/mL (0-100)
[2023-05-21 15:10] LABS: Mucous, Urine 0 SEEN /hpf (<or=2+); Red Blood Cells-Urine 0 SEEN /hpf (0-5); White Blood Cells 0 SEEN /hpf (0-5)
[2023-05-21 15:12] LABS: Color, Urine Yellow (Yellow); Glucose, Dipstick 1000 mg/dl (Normal); Ketone-Dipstick 5 mg/dl (Negative); Leukocyte Esterase-Dipstick Negative /ul (Negative); Nitrite-Dipstick Negative (Negative); Occult Blood-Urine 10 /ul (Negative); Protein-Dipstick 30 mg/dl (Negative); Urine Bilirubin Dipstick Negative (Negative); Urine Clarity Clear (Clear); Urine Urobilinogen Normal (Normal)
[2023-05-21 15:19] LABS: Bacteria RARE /hpf (None Seen); Squamous Epithelial Cells - UA 0-5 SEEN /hpf (0-5); Uric Acid Crystals Ur RARE /hpf (<or=1+)
[2023-05-21 15:35] LABS: Reflex Troponin-HS? (from REC) Y
--- NOTE | 2023-05-21 15:50 | HP.PCM.HOS_ITS ---
HPI - General General Date of Admission: 05/21/23 Date of Service: 05/21/23 Chief Complaint: Shortness of breath, weakness, RLE swelling HPI Narrative LANI MARRERO, is a 67 M who presented to [facility] ED on 05/21/2023 from home with multiple concerns including shortness of breath, generalized weakness and worsening right lower extremity swelling. Patient seen at bedside in the ED. Laying comfortably in bed, conversing normally, no acute distress. Patient is satting well on room air, no increased work of breathing n oted. Patient lives at home by himself. 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 States over the last few days he has felt generally weaker with some shortness of breath on exertion. He has also noticed that his right lower leg has become more red and swollen over that timeframe. He denies any fevers or chills recently. Uses a cane to ambulate around the home, has been more sedentary over the past few days due to mild right lower extremity pain and generalized weakness. He denies any cough or sputum production recently. Patient has history of sleep apnea, wears his BiPAP every night without issue. Patient states he has been taking his home medications as prescribed. He takes long-acting insulin every night along with metformin. Checks his blood sugars occasionally and they typically are in the 250s. He does have fairly significant polyuria and polydipsia on a regular basis. He denies any abdominal pain, nausea or vomiting. No other acute concerns this time. [facility] Medical History (Updated 05/21/23 @ 15:[address] Edward Luevano, ) Alcohol use Ambulates with cane Anxiety Arthritis Atrial fibrillation Bilateral leg edema BiPAP (biphasic positive airway pressure) dependence [facility] Cardiology follow-up encounter Chronic anticoagulation Chronic cellulitis Depression Diabetes Dietary restriction Essential (primary) hypertension Fall Former smoker History of echocardiogram History of edema History of pain when walking History of ulceration HTN (hypertension) Hyperglycemia due to diabetes mellitus Hyperlipidemia Insulin dependent diabetes mellitus Leg cramps Low iron Lower extremity neuropathy Morbid obesity New onset atrial fibrillation (10/01/20) Obstructive sleep apnea Pickwickian syndrome Restless legs Shortness of breath on exertion Streptococcal bacteremia Thyroid nodule Type 2 diabetes mellitus Wears glasses Home Medications losartan 100 mg tablet 100 mg PO QHS Check with primary doctor 04/04/14 [History Last Taken 05/20/23] metformin 1,000 mg tablet 1,000 mg PO BIDCM diabetes 04/04/14 [History Last Taken 05/21/23] amlodipine 5 mg tablet 5 mg PO QHS BP 10/01/20 [History Last Taken 05/20/23] [id number] 300 mcg-K 60 mcg-lycop 600 mcg-lutein 300 mcg tablet 1 tablet PO DAILY supplemetn 10/01/20 [History Last Taken 05/21/23] metoprolol succinate 100 mg tablet,extended release 24 hr (Toprol XL) 100 mg PO QHS Check with primary doctor 12/03/20 [History Last Taken 05/20/23] insulin glargine U-300 conc 300 unit/mL (3 mL) subcutaneous pen (Toujeo Max U- 300 SoloStar) 55 unit subcut QHS diabetes 09/27/22 [History Last Taken 05/20/23] apixaban 5 mg tablet 5 mg PO BID blood thinner 11/29/22 [History Last Taken 05/21/23] gabapentin 800 mg tablet 800 mg PO TID neuropathy 11/29/22 [History Last Taken 05/21/23] Allergy/AdvReac Type Severity Reaction Status Date / Time ampicillin Allergy Unknown Verified 03/24/23 10:59 peanut Allergy NEEDS Verified 11/28/22 04:32 FOLLOW-UP Penicillins Allergy Unknown Verified 11/28/22 04:32 Family History Mother Heart disease Diabetes Father Heart disease Cancer Surgical History History of amputation of toe History of wisdom tooth extraction Social History Smoking Status: Former smoker how long ago did patient quit smokin alcohol intake: never substance use type: does not use caffeine: Yes ROS Constitutional Constitutional: Reports fatigue, malaise and weakness; Denies change in weight, chills or fever(s) Eyes Eyes: Denies change in vision Cardiovascular Cardiovascular: Denies chest pain, edema, lightheadedness or orthopnea Respiratory/Chest Respiratory/Chest: Reports shortness of breath with exertion; Denies cough, productive cough, shortness of breath at rest or wheezing Gastrointestinal Gastrointestinal: Denies abdominal pain, constipation, diarrhea, nausea or vomiting Genitourinary Genitourinary: Reports nocturia and urinary frequency; Denies burning urination, dysuria, urinary hesitancy or urinary urgency Musculoskeletal Musculoskeletal: Denies arthralgias or back pain Neurologic Neurologic: Denies dizziness, focal weakness, headache(s), numbness or paresthesias Vital Signs Vital Signs Vital Signs: 05/21/23 12:47 05/21/23 12:57 05/21/23 12:50 Temperature 99.2 F H Temperature Source Oral Pulse Rate 80 81 Respiratory Rate 20 H 20 H Respiratory Effort Normal Non-Labored Respiratory Depth Normal Respiratory Pattern Normal Blood Pressure 143/70 H 119/90 H Blood Pressure Mean 94 99 Pulse Ox 95 95 Oxygen Delivery Method Room Air Room Air Room Air 05/21/23 15:09 Temperature Temperature Source Pulse Rate 79 Respiratory Rate 15 Respiratory Effort Respiratory Depth Respiratory Pattern Blood Pressure 112/67 Blood Pressure Mean 82 Pulse Ox 92 Oxygen Delivery Method Room Air Weight Weight: 178 kg Body Mass Index (BMI) 59.6 Physical Exam Const alert, oriented x3 and no apparent distress Constitutional Narrative: Elderly male, super morbidly obese, laying comfortably in bed, conversing normally, no acute distress. General Appearance: cooperative and comfortable HEENT normocephalic, head/scalp atraumatic, hearing grossly normal bilaterally, nasal mucous membranes and turbinates normal and moist oral mucous membranes Eyes PERRL, EOMs intact bilaterally and conjunctivae normal Neck full ROM, no lymphadenopathy and supple Lymph Lymphatic: no lymphadenopathy noted Chest inspection of chest normal Resp Resp Narrative: Good air movement bilaterally, no wheezing or crackles noted. Satting in low 90s on room air, no increased work of breathing noted. Cardio regular rate, regular rhythm, no murmurs and peripheral pulses 2+ throughout GI normal to inspection, nondistended, normoactive bowel sounds, soft to palpation, non-tender and non-distended Back/Spine normal ROM Extremity Extremity Narrative: Severe erythema with warmth, swelling and mild tenderness to palpation in right leg from foot up to below the knee. Only mild skin changes and edema in left lower leg. Neuro moves all extremities and no focal motor deficits Speech: speech normal Psych mental status grossly normal Results Lab / Micro Data 05/21/23 13:25 05/21/23 13:25 Labs: Laboratory Results - last 24 hr 05/21/23 13:25: WBC 10.6, RBC 4.93, Hgb 12.8 L, Hct 41.7, MCV 84.6, MCH 26.0 L, MCHC 30.7 L, RDW Std Deviation 43.4, RDW Coeff of Jada 14.2, Plt Count 173, MPV 11.0, Immature Gran % (Auto) 0.400, Neut % (Auto) 74.4 H, Lymph % (Auto) 16.0 L, Beauregard % (Auto) 7.7, Eos % (Auto) 1.0, Baso % (Auto) 0.5, Absolute Neuts (auto) 7.9 H, Absolute Lymphs (auto) 1.70, Nucleated RBC % 0, Sodium 136, Potassium 3.9, Chloride 100, Carbon Dioxide 32.0, Anion Gap 4 L, BUN 16, Creatinine 0.94, Estim Creat Clear Calc 72.77, Est GFR (MDRD) Af Amer 102, Est GFR (MDRD) Non-Af 84, BUN/Creatinine Ratio 17.0, Glucose 293 H, Lactic Acid 2.7 H*, Calcium 9.2, Troponin I High Sens 10, B-Natriuretic Peptide 29.8 05/21/23 15:05: Urine Color Yellow, Urine Clarity Clear, Urine pH 5.0, Ur Specific [place] 1.020, Urine Protein 30 H, Urine Glucose (UA) 1000 H, Urine Ketones 5 H, Urine Occult Blood 10 H, Urine Nitrite Negative, Urine Bilirubin Negative, Urine Urobilinogen Normal, Ur Leukocyte Esterase Negative, Urine RBC 0 SEEN, Urine WBC 0 SEEN, Ur Squamous Epith Cells 0-5 SEEN, Uric Acid Crystals RARE, Urine Bacteria RARE, Urine Mucus 0 SEEN Micro: Microbiology 05/21/23 13:15 Nasal Secretion SARS-CoV-2 & FLU Antigen (Rapid) - Final Imagaing Radiology Impression Chest X-Ray 05/21/23 13:19 IMPRESSION: No acute cardiopulmonary pathology and no significant interval change when compared to 11/28/2022. Electronically Signed: Mateo Huston MD at 13:34 EST , Assessment & Plan Assessment/Plan (1) Weakness: (2) Hypoxemia: (3) Cellulitis of right leg: PLAN: Plan Patient is a 67-year-old male who presented to [facility] ED on 05/21/2023 from home with multiple concerns including shortness of breath, generalized weakness and worsening right lower extremity swelling. 1. Hypoxia, concern for obesity hypoventilation syndrome, history of TODD Patient was reportedly 88% on room air with EMS. Dropped to 86% with ambulation in the ED. Chest x-ray nonacute. Patient afebrile, normal WBC count, normotensive, normal heart rate. Suspect this is chronic hypoxia secondary to obesity hypoventilation syndrome. Bicarb 32 on BMP, previous bicarb values of 29 in November and 31 in March; evidence that patient is a chronic CO2 retainer, is well compensated. Patient satting in low 90s on room air at rest, breathing comfortably. ? Admit under inpatient status to [facility]. Will obtain ABG with patient on room air to assess for OHS. Continue home BiPAP at night. Incentive spirometry ordered. 2. Generalized weakness, debility, super morbid obesity BMI 59 on admit. Patient lives at home by himself. Was previously hospitalized in 11/2022 for a UTI, was discharged to SNF at the [facility] at that time. 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 However, has noticed that he has felt weaker than his baseline over the past several days. Suspect he has some degree of dehydration from volume losses from poorly controlled diabetes as noted below. ? PT/OT/case management consulted. Severe obesity complicates patient's care and prognosis. 3. 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 Significantly different than left lower extremity. Patient has history of left foot OM with fifth ray partial amputation in 11/2020. Continues to be high risk for osteomyelitis given poorly controlled diabetes, obesity with persistent lower extremity edema. Notably hemodynamically stable, afebrile and normal WBC count on admit as noted above, but lactate is mildly elevated at 2.7. Notably, wound cultures from left foot in 2020 grew strep, Enterococcus, Proteus, anaerobe x 2. Infectious disease followed at that time, was treated with vancomycin, ceftriaxone and Flagyl while inpatient, then discharged on Keflex and Flagyl to complete 6-week course as well as a 10-day course of linezolid for enterococcal coverage. ? Will obtain right lower leg x-rays to evaluate for osteomyelitis for now; low threshold to obtain MRI of right lower extremity pending x-ray results. Will treat with vancomycin, ceftriaxone and Flagyl for now. Infectious disease and podiatry consulted. CRP ordered. Trend lactate. 4. 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 UA showed 1000 glucose in the urine. Previous A1c values consistently 9 to 10% for the last few years, most recent A1c 10.2% on 04/15/2023. Home regimen of Toujeo 55 units at night, metformin 1000 mg twice daily. Patient reports compliance with these medications. Occasionally checks her sugars at home, readings typically around the mid 200s. Reports moderate polyuria and polydipsia at baseline. On gabapentin 800 mg 3 times daily for chronic neuropathy of his lower extremities. ? We will start Lantus 45 units at night, Humalog 10 units 3 times daily AC with high-dose sliding scale insulin, adjust regimen as needed. Continue home gabapentin. 5. Atrial fibrillation on Eliquis Follows with cardiology, last office visit on 03/24/2023. Appears to be in persistent atrial fibrillation at this point. EKG on admit showed A-fib with heart rate of 80. ? Continue home Eliquis and Toprol. 6. Hypertension Home medications of amlodipine 5 mg daily, losartan 100 mg daily. Normotensive to mildly hypotensive in ED. ? Will hold home amlodipine and losartan for now, restart as needed. DVT prophylaxis: Eliquis CODE STATUS: Full code, verified Expected disposition: Home with home health care versus SNF, 2 to 3 days Total clinical time spent by myself addressing the patient's medical issues, reviewing all the data, and collaborating with patient's care team: 55 minutes. Charges/Coding Visit Charges Inpatient E&M: 13224 Init Hosp L2
[2023-05-21] MEDS: Cephalexin 250 MG Capsule 500 MG PO (16:03)
[2023-05-21] MEDS: Smz/Tmp Ds Tablet 1 TABLET PO (16:03)
--- NOTE | 2023-05-21 16:30 | RAD_ITS ---
EXAM: XR RIGHT FOOT, 2 VIEWS CLINICAL INDICATION: RLE cellulitis w/ poorly controlled T2DM, r/o OM TECHNIQUE: Frontal and lateral views of the right foot. COMPARISON: Ankle on the same date. FINDINGS: BONES/JOINTS: Apparent fracture of the medial base of the first proximal phalanx without displacement. Diffuse arthrosis throughout the midfoot and forefoot. Arthritic changes in the hind foot with talar and calcaneal spurring. No sclerotic or destructive changes observed. SOFT TISSUES: Diffuse soft tissue swelling. No radiopaque foreign body. RAD/Foot 2 Views IMPRESSION: 1. Apparent fracture of the medial base of the first proximal phalanx without displacement. 2. Diffuse soft tissue swelling. Degenerative changes. Electronically Signed: Dalton Tomas DO at 19:41 EST ,
--- NOTE | 2023-05-21 16:37 | RAD_ITS ---
EXAM: XR RIGHT ANKLE, 2 VIEWS CLINICAL INDICATION: RLE cellulitis w/ poorly controlled T2DM, r/o OM TECHNIQUE: Frontal and lateral views of the right ankle. COMPARISON: Tibia on the same date. Foot on the same date. FINDINGS: BONES/JOINTS: Dorsal midfoot spurring, calcaneal spurring, and dorsal talar spurring. Significant arthrosis of the distal tibia-fibula syndesmosis. No acute fracture. No subluxation. Normal alignment. Preservation of the joint space. No sclerotic or destructive changes observed. No definite erosive changes. SOFT TISSUES: Diffuse soft tissue swelling. Soft tissue calcifications are nonspecific. No radiopaque foreign body. RAD/Ankle 2 Views IMPRESSION: 1. Diffuse soft tissue swelling. 2. Extensive arthritic changes. No definite acute osseous abnormality. Electronically Signed: Dalton Tomas DO at 19:40 EST ,
--- NOTE | 2023-05-21 16:37 | RAD_ITS ---
EXAM: XR RIGHT TIBIA AND FIBULA, 2 VIEWS CLINICAL INDICATION: RLE cellulitis w/ poorly controlled T2DM, r/o OM TECHNIQUE: Frontal and lateral views of the right tibia and fibula. COMPARISON: Ankle radiographs on the same date. FINDINGS: BONES/JOINTS: Tibial tubercle hypertrophy and patellar enthesopathy. Degenerative changes at the ankle are partially visualized. No acute fracture. No subluxation. Normal alignment. No sclerotic or destructive changes observed. SOFT TISSUES: Diffuse soft tissue swelling and soft tissue calcifications. No radiopaque foreign body. RAD/Tibia & Fibula 2 Views IMPRESSION: Diffuse soft tissue swelling, dystrophic soft tissue calcifications, and degenerative changes. No acute osseous abnormalities. Electronically Signed: Dalton Tomas DO at 20:49 EST ,
[2023-05-21 16:42] LABS: Troponin-I HS 10 pg/mL (3.0-78.0)
[2023-05-21 17:35] LABS: Reflex Lactate? Y
[2023-05-21 18:26] LABS: Lactic Acid 1.7 mmol/L (0.4-1.9)
[2023-05-21] MEDS: Vancomycin HCl 2,000 MG in 0.9% Normal Saline (500mL Bag) 500 ML 250 MG IV (19:58)
--- NOTE | 2023-05-21 22:33 | PCM.RX.CS ---
Consult Antibiotic Management Pharmacy has been consulted to manage selected antiobiotic: Vancomycin Type of Intervention Type of Consult: New start Labs Labs: Sodium 136 mmol/L (136-145) 05/21/23 13:25 Potassium 3.9 mmol/L (3.5-5.1) 05/21/23 13:25 Chloride 100 mmol/L (98-107) 05/21/23 13:25 Carbon Dioxide 32.0 mmol/L (21.0-32.0) 05/21/23 13:25 Anion Gap 4 (5-15) L 05/21/23 13:25 BUN 16 mg/dL (7-18) 05/21/23 13:25 Creatinine 0.94 mg/dL (0.70-1.30) 05/21/23 13:25 Est GFR (MDRD) Af Amer 102 mL/min (>60) 05/21/23 13:25 Est GFR (MDRD) Non-Af 84 mL/min (>60) 05/21/23 13:25 BUN/Creatinine Ratio 17.0 RATIO (10-20) 05/21/23 13:25 Glucose 293 mg/dL (74-106) H 05/21/23 13:25 Microbiology Microbiology: Microbiology 05/21/23 13:15 Nasal Secretion SARS-CoV-2 & FLU Antigen (Rapid) - Final Dosing Weight Weight used for dosin.5 kg Estimated Creatinine Clearance Estimated Creatinine Clearance: >100 Goal Trough Goal Trough: 15-20 mcg/mL Pharmacy Plan for Drug Dosing Pharmacy Plan for Drug Dosing: Pharmacy Service will continue to monitor and adjust dosing as required. Follow-Up Labs Follow-Up Labs: Trough: Vancomycin Date/Time Labs Ordered Labs to be done on [date and time ordered]: 05/22 @ 1930
[2023-05-21] MEDS: Ceftriaxone 2 GM in 0.9% Normal Saline (50mL MB+) 50 ML IV (22:34)
[2023-05-21] MEDS: Metoprolol(XL)Succ 100 MG Tablet PO (22:35)
[2023-05-21] MEDS: Gabapentin 800 MG Tablet PO (22:35)
[2023-05-21] MEDS: APIXABAN 5 MG TABLET PO (22:35)
[2023-05-21] MEDS: Insulin Glargine-YFGN 100 UNIT/ML Pen 45 UNIT SC (22:41)
[2023-05-21] MEDS: Insulin Lispro 100 UNIT/ML INSULN.PEN SC (22:48)
[2023-05-21 23:01] LABS: Bedside Glucose 321 mg/dL (74-106)
[2023-05-22] MEDS: metroNIDAZOLE 500 MG/100 ML BAG 100 MG IV ×2 (00:28→06:37)
[2023-05-22 00:49] LABS: Reflex Lactate? Y
[2023-05-22 01:40] LABS: Lactic Acid 1.5 mmol/L (0.4-1.9)
[2023-05-22 02:00] VITALS: BP 128/70; PULSE 68; RESP 18; TEMP 36.4; O2SAT 97
[2023-05-22] MEDS: Vancomycin HCl 1,500 MG in 0.9% Normal Saline (500mL Bag) 500 ML 250 MG IV ×3 (03:53→20:53)
[2023-05-22 05:12] LABS: Hematocrit 40.8 % (40-54); Hemoglobin 12.6 g/dL (13.0-16.5); Mean Corp Hgb Conc 30.9 g/dL (32-36); Mean Corpuscular Hgb 25.9 pg (27.0-32.0); Mean Platelet Vol. 9.8 fl (6.2-12.0); Platelet Count 190 K/mm3 (150-450); RBC Distribution Width CV 14.1 % (11.6-14.6); RBC Distribution Width SD 42.6 fl (35.1-43.9); Red Blood Count 4.86 M/mm3 (4.6-6.2); White Blood Count 9.4 K/mm3 (4.4-11.0)
[2023-05-22 05:28] LABS: Anion Gap 4 (5-15); BUN 14 mg/dL (7-18); BUN/Creat Ratio 17.1 RATIO (10-20); Calcium,Total 8.5 mg/dL (8.5-10.1); Chloride 101 mmol/L (98-107); Creatinine, Serum 0.82 mg/dL (0.70-1.30); EST Glomerular Filtration Rate 99 mL/min (>60); Est Glom Filt Rate - Afr Amer 120 mL/min (>60); Estimated Creatinine Clearance 83.41 ml/min; Glucose 252 mg/dL (74-106); Potassium 3.9 mmol/L (3.5-5.1); Sodium Level 136 mmol/L (136-145)
[2023-05-22 05:30] LABS: Lactic Acid 1.1 mmol/L (0.4-1.9)
[2023-05-22] MEDS: Gabapentin 800 MG Tablet PO ×3 (06:37→21:32)
[2023-05-22 08:27] VITALS: BP 124/62; PULSE 83; RESP 18; TEMP 36.4; O2SAT 96
[2023-05-22 08:34] LABS: Bedside Glucose 233 mg/dL (74-106)
[2023-05-22] MEDS: Insulin Lispro 100 UNIT/ML INSULN.PEN 10 UNIT SC (08:36)
[2023-05-22] MEDS: Insulin Lispro 100 UNIT/ML INSULN.PEN SC ×4 (08:36→21:31)
[2023-05-22] MEDS: APIXABAN 5 MG TABLET PO ×2 (08:36→21:32)
--- NOTE | 2023-05-22 08:49 | PCM.PN.HOSP ---
Reason for Visit Reason for Visit: Shortness of breath/weakness/right lower extremity swelling Subjective Subjective Patient is a super morbidly obese white male who presented to the emergency department at [facility] on 05/21/2023 with shortness of breath, generalized weakness, and worsening right lower extremity edema. Upon presentation he had no conversational dyspnea and did not appear to be in any acute distress. He was satting well on room air with no increased work of breathing. 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 He reported over the last few days prior to presentation he had felt generally weaker than typical and had increased shortness of breath with exertion. He also noted that his right lower leg had become more red and swollen. He denied any fever or chills and had been using a cane to ambulate around the house. He did indicate he had been more sedentary over the past few days due to right lower extremity swelling and pain. He denied any cough or sputum and indicates he has a known history of sleep apnea and religiously wears a BiPAP nocturnally. His CBC was unremarkable. His chemistry panel was unremarkable other than significant hyperglycemia with a blood sugar of 293. A lactic acid was obtained and found to be 2.7. CRP was markedly elevated at 153. His UA is not consistent with infection. Chest x-ray was unremarkable when compared to previous on 11/28/2022. Imaging of the right foot ankle and tibia and fibula were performed and demonstrated fracture of the medial base of the first proximal phalanx without displacement and diffuse soft tissue swelling, extensive arthritic changes at the ankle, and diffuse soft tissue swelling of the distal left lower extremity. COVID and flu are negative. He was admitted to the medical floor. We suspect the shortness of breath is likely related to obesity hypoventilation syndrome and a room ABG is pending. He was placed on broad-spectrum antibiotics and infectious disease and podiatry were consulted. Patient states his exertional dyspnea is not new however has gotten a little bit worse with time. Objective Data Objective Data Vital Signs: Vital Signs Temp Pulse Resp BP Pulse Ox O2 Del Method FiO2 97.6 F L 83 18 124/62 H 96 Room Air 21 05/22/23 08:27 05/22/23 08:27 05/22/23 08:27 05/22/23 08:27 05/22/23 08:27 05/22/23 08:33 05/21/23 23:20 Oxygen Delivery Method Room Air Weight: 168.51 kg Body Mass Index (BMI) 56.5 Intake & Output: Intake and Output for Last 24 Hours 05/20/23 05/21/23 05/22/23 23:59 23:59 23:59 Intake Total 590 / 940 1380 / 1380 Balance 590 / 940 1380 / 1380 Lab / Micro Data 05/22/23 04:57 05/22/23 04:57 Labs: Laboratory Results - last 24 hr 05/21/23 13:25: WBC 10.6, RBC 4.93, Hgb 12.8 L, Hct 41.7, MCV 84.6, MCH 26.0 L, MCHC 30.7 L, RDW Std Deviation 43.4, RDW Coeff of Jada 14.2, Plt Count 173, MPV 11.0, Immature Gran % (Auto) 0.400, Neut % (Auto) 74.4 H, Lymph % (Auto) 16.0 L, Mckenzie % (Auto) 7.7, Eos % (Auto) 1.0, Baso % (Auto) 0.5, Absolute Neuts (auto) 7.9 H, Absolute Lymphs (auto) 1.70, Nucleated RBC % 0, Sodium 136, Potassium 3.9, Chloride 100, Carbon Dioxide 32.0, Anion Gap 4 L, BUN 16, Creatinine 0.94, Estim Creat Clear Calc 72.77, Est GFR (MDRD) Af Amer 102, Est GFR (MDRD) Non-Af 84, BUN/Creatinine Ratio 17.0, Glucose 293 H, Lactic Acid 2.7 H*, Calcium 9.2, Troponin I High Sens 10, B-Natriuretic Peptide 29.8 05/21/23 15:05: Urine Color Yellow, Urine Clarity Clear, Urine pH 5.0, Ur Specific Maunie 1.020, Urine Protein 30 H, Urine Glucose (UA) 1000 H, Urine Ketones 5 H, Urine Occult Blood 10 H, Urine Nitrite Negative, Urine Bilirubin Negative, Urine Urobilinogen Normal, Ur Leukocyte Esterase Negative, Urine RBC 0 SEEN, Urine WBC 0 SEEN, Ur Squamous Epith Cells 0-5 SEEN, Uric Acid Crystals RARE, Urine Bacteria RARE, Urine Mucus 0 SEEN 05/21/23 16:10: Troponin I High Sens 10, C-React Prot Ext Range 159.00 H 05/21/23 17:52: Lactic Acid 1.7 05/21/23 20:35: Lactic Acid 2.0 05/21/23 22:41: POC Glucose 321 H 05/22/23 01:05: Lactic Acid 1.5 05/22/23 04:57: WBC 9.4, RBC 4.86, Hgb 12.6 L, Hct 40.8, MCV 84.0, MCH 25.9 L, MCHC 30.9 L, RDW Std Deviation 42.6, RDW Coeff of Jada 14.1, Plt Count 190, MPV 9.8, Sodium 136, Potassium 3.9, Chloride 101, Carbon Dioxide 31.0, Anion Gap 4 L, BUN 14, Creatinine 0.82, Estim Creat Clear Calc 83.41, Est GFR (MDRD) Af Amer 120, Est GFR (MDRD) Non-Af 99, BUN/Creatinine Ratio 17.1, Glucose 252 H, Lactic Acid 1.1, Calcium 8.5 05/22/23 08:02: POC Glucose 233 H Micro: Microbiology 05/21/23 13:15 Nasal Secretion SARS-CoV-2 & FLU Antigen (Rapid) - Final Radiography Diagnostic Testing: Radiology Impression Chest X-Ray 05/21/23 13:19 IMPRESSION: No acute cardiopulmonary pathology and no significant interval change when compared to 11/28/2022. Electronically Signed: Mateo Huston MD at 13:34 EST , Foot X-Ray 05/21/23 16:30 IMPRESSION: 1. Apparent fracture of the medial base of the first proximal phalanx without displacement. 2. Diffuse soft tissue swelling. Degenerative changes. Electronically Signed: Dalton Tomas DO at 19:41 EST , Ankle X-Ray 05/21/23 16:37 IMPRESSION: 1. Diffuse soft tissue swelling. 2. Extensive arthritic changes. No definite acute osseous abnormality. Electronically Signed: Dalton Tomas DO at 19:40 EST , Tibia/Fibula X-Ray 05/21/23 16:37 IMPRESSION: Diffuse soft tissue swelling, dystrophic soft tissue calcifications, and degenerative changes. No acute osseous abnormalities. Electronically Signed: Dalton Tomas DO at 20:49 EST , Physical Exam Const alert, oriented x3, no apparent distress and well nourished; Negative for average body habitus or healthy appearing Constitutional Narrative: Morbidly obese, upper middle-aged, white male, sitting up on the edge of the bed, appears comfortable nontoxic HEENT head/scalp atraumatic and moist oral mucous membranes HEENT Narrative: Mallampati 3-4, no thrush Head and Scalp: normocephalic Eyes PERRL and conjunctivae normal Neck no lymphadenopathy and supple Neck Narrative: Neck is short and thick, trachea midline, no thyroid enlargement Resp normal respiratory effort, no retractions, no use of accessory muscles and clear to auscultation bilaterally Auscultation: Negative for rales, rhonchi or wheezes Cardio regular rate, regular rhythm, S1 normal heart sound, S2 normal heart sound, no murmurs, no rub, no gallops and no clicks GI normal to inspection, nondistended, normoactive bowel sounds, soft to palpation and non-tender GI Narrative: Umbilical hernia present, large protuberant abdomen Extremity Extremity Narrative: Bilateral lower extremity edema that appears consistent with lymphedema, right lower extremity with significant erythema but no wounds, no cyanosis or clubbing Skin Skin Narrative: Erythema in the right lower extremity from just below the knee to just above the ankle, skin is dry without any wounds open noted Neuro oriented x3, moves all extremities and no focal motor deficits Speech: speech normal Psych affect normal Psych Narrative: Talkative, eye contact is good, patient interacts appropriately Assessment & Plan Assessment/Plan (1) Hypoxemia: (2) Weakness: (3) Cellulitis of right leg: PLAN: Plan Exertional hypoxia -COVID and flu are negative -Patient has no respiratory symptoms so we will defer acute respiratory panel at this time -Currently on room air -Will check room air blood gas as I do suspect patient may have obesity hypoventilation syndrome with a BMI of 56.5 -He is chronically anticoagulated due to history of atrial fibrillation therefore I doubt he has any VTE -Echocardiogram in November that showed 65% EF, inability to assess folic dysfunction due to poor study, mildly enlarged left atrium with no significant valvular disease--> unfortunately right ventricular systolic pressure was unable to be assessed -Will give Lasix 40 mg IV push twice daily--patient is not on any chronic diuretic however with his size and sleep apnea I do suspect he probably has some right ventricular elevated pressures and may benefit from diuresis. Right lower extremity cellulitis with history of left foot osteomyelitis -Continue vancomycin but discontinue ceftriaxone and Flagyl and replace with meropenem -Patient does have allergy to penicillins but is unclear -Cultures pending -No obvious osseous evidence of osteomyelitis on imaging at this time -Podiatry and ID consultation Fracture of the medial base of the first proximal phalanx without displacement -Podiatry consult was pending -I suspect at the very least he will need a walking shoe DM-2 -Poorly controlled with recent hemoglobin A1c of 10.2 -Continue home insulin but increase basal insulin to 30 units twice daily from 45 units nightly -Increase prandial insulin from 10 to 16 units 3 times daily -SSI -Accu-Cheks as ordered -Will hold metformin while hospitalized -It is imperative for healing but he does improve glycemic control Hypertension -Hold losartan for now as blood pressure was on the borderline when he came in -Continue metoprolol -Restart home nocturnal amlodipine Diabetic neuropathy -Continue home gabapentin Paroxysmal atrial fibrillation -Continue home apixaban -Continue home beta-rosie TODD -Continue home nocturnal BiPAP Morbid obesity -BMI is 56.5 -Recommend weight loss -Complicates treatment, prognosis, outcomes DVT prophylaxis -Continue home apixaban CODE STATUS -Full code Charges/Coding Visit Charges Inpatient E&M: 79256 [facility] Hosp L3
--- NOTE | 2023-05-22 08:52 | PCA ---
Attempted to validate advance directives and healthcare POA, shows documents scanned in from 2017 but system cannot retrieve them. pt needs to provide [facility] with copys
[2023-05-22 09:24] LABS: Hemoglobin A1c 10.4 % (3.8-5.6)
[2023-05-22 10:25] LABS: Allen Test Positive; Base Excess 3 mmol/L (-2 to +2); Bicarbonate 27.7 mmol/L (22-26); Blood Gas Specimen Type ART; Mode Not entered; O2 Delivery Device Room Air; PO2 68 mmHG (75-100); SITE L Radial; SO2 93 % (95-99); Total Carbon Dioxide 29 mmol/L; pCO2 46.4 mmHg (35-45); pH 7.38 (7.35-7.45)
--- NOTE | 2023-05-22 10:41 | PCM.CONS.GEN ---
HPI Consult Data Date of Consult: 05/22/23 HPI Narrative HPI Narrative: LANI MARRERO, is a 67 M who presents [facility] Medical History (Updated 05/21/23 @ 15:[address] Edward Luevano, DO) Alcohol use Ambulates with cane Anxiety Arthritis Atrial fibrillation Bilateral leg edema BiPAP (biphasic positive airway pressure) dependence [facility] Cardiology follow-up encounter Chronic anticoagulation Chronic cellulitis Depression Diabetes Dietary restriction Essential (primary) hypertension Fall Former smoker History of echocardiogram History of edema History of pain when walking History of ulceration HTN (hypertension) Hyperglycemia due to diabetes mellitus Hyperlipidemia Insulin dependent diabetes mellitus Leg cramps Low iron Lower extremity neuropathy Morbid obesity New onset atrial fibrillation (10/01/20) Obstructive sleep apnea Pickwickian syndrome Restless legs Shortness of breath on exertion Streptococcal bacteremia Thyroid nodule Type 2 diabetes mellitus Wears glasses Home Medications losartan 100 mg tablet 100 mg PO QHS Check with primary doctor 04/04/14 [History Last Taken 05/20/23] metformin 1,000 mg tablet 1,000 mg PO BIDCM diabetes 04/04/14 [History Last Taken 05/21/23] amlodipine 5 mg tablet 5 mg PO QHS BP 10/01/20 [History Last Taken 05/20/23] biooopet-sh-jyuea 300 mcg-K 60 mcg-lycop 600 mcg-lutein 300 mcg tablet 1 tablet PO DAILY supplemetn 10/01/20 [History Last Taken 05/21/23] metoprolol succinate 100 mg tablet,extended release 24 hr (Toprol XL) 100 mg PO QHS Check with primary doctor 12/03/20 [History Last Taken 05/20/23] insulin glargine U-300 conc 300 unit/mL (3 mL) subcutaneous pen (Toujeo Max U-300 SoloStar) 55 unit subcut QHS diabetes 09/27/22 [History Last Taken 05/20/23] apixaban 5 mg tablet 5 mg PO BID blood thinner 11/29/22 [History Last Taken 05/21/23] gabapentin 800 mg tablet 800 mg PO .QID neuropathy 11/29/22 [History Last Taken 05/21/23] Allergy/AdvReac Type Severity Reaction Status Date / Time ampicillin Allergy Unknown Verified 03/24/23 10:59 peanut Allergy NEEDS Verified 11/28/22 04:32 FOLLOW-UP Penicillins Allergy Unknown Verified 11/28/22 04:32 Family History Mother Heart disease Diabetes Father Heart disease Cancer Surgical History History of amputation of toe History of wisdom tooth extraction Social History Smoking Status: Former smoker how long ago did patient quit smokin alcohol intake: never substance use type: does not use caffeine: Yes Lab / Micro Data 05/22/23 04:57 05/22/23 04:57 Labs: Laboratory Results - last 24 hr 05/21/23 13:25: WBC 10.6, RBC 4.93, Hgb 12.8 L, Hct 41.7, MCV 84.6, MCH 26.0 L, MCHC 30.7 L, RDW Std Deviation 43.4, RDW Coeff of Jada 14.2, Plt Count 173, MPV 11.0, Immature Gran % (Auto) 0.400, Neut % (Auto) 74.4 H, Lymph % (Auto) 16.0 L, [place]ow % (Auto) 7.7, Eos % (Auto) 1.0, Baso % (Auto) 0.5, Absolute Neuts (auto) 7.9 H, Absolute Lymphs (auto) 1.70, Nucleated RBC % 0, Sodium 136, Potassium 3.9, Chloride 100, Carbon Dioxide 32.0, Anion Gap 4 L, BUN 16, Creatinine 0.94, Estim Creat Clear Calc 72.77, Est GFR (MDRD) Af Amer 102, Est GFR (MDRD) Non-Af 84, BUN/Creatinine Ratio 17.0, Glucose 293 H, Lactic Acid 2.7 H*, Calcium 9.2, Troponin I High Sens 10, B-Natriuretic Peptide 29.8 05/21/23 15:05: Urine Color Yellow, Urine Clarity Clear, Urine pH 5.0, Ur Specific Sanford 1.020, Urine Protein 30 H, Urine Glucose (UA) 1000 H, Urine Ketones 5 H, Urine Occult Blood 10 H, Urine Nitrite Negative, Urine Bilirubin Negative, Urine Urobilinogen Normal, Ur Leukocyte Esterase Negative, Urine RBC 0 SEEN, Urine WBC 0 SEEN, Ur Squamous Epith Cells 0-5 SEEN, Uric Acid Crystals RARE, Urine Bacteria RARE, Urine Mucus 0 SEEN 05/21/23 16:10: Troponin I High Sens 10, C-React Prot Ext Range 159.00 H 05/21/23 17:52: Lactic Acid 1.7 05/21/23 20:35: Lactic Acid 2.0 05/21/23 22:41: POC Glucose 321 H 05/22/23 01:05: Lactic Acid 1.5 05/22/23 04:57: WBC 9.4, RBC 4.86, Hgb 12.6 L, Hct 40.8, MCV 84.0, MCH 25.9 L, MCHC 30.9 L, RDW Std Deviation 42.6, RDW Coeff of Jada 14.1, Plt Count 190, MPV 9.8, Sodium 136, Potassium 3.9, Chloride 101, Carbon Dioxide 31.0, Anion Gap 4 L, BUN 14, Creatinine 0.82, Estim Creat Clear Calc 83.41, Est GFR (MDRD) Af Amer 120, Est GFR (MDRD) Non-Af 99, BUN/Creatinine Ratio 17.1, Glucose 252 H, Hemoglobin A1c 10.4 H, Lactic Acid 1.1, Calcium 8.5 05/22/23 08:02: POC Glucose 233 H Micro: Microbiology 05/21/23 13:15 Nasal Secretion SARS-CoV-2 & FLU Antigen (Rapid) - Final ABG Data ABG results: ABG 05/22/23 10:22 Specimen Type ART Sample Site L Radial pH 7.38 Bicarbonate Actual 27.7 H Total CO2 29 Base Excess 3 H O2 Saturation 93 L ABG pCO2 46.4 H ABG pO2 68 L Jake Test Positive O2 Delivery Device Room Air Vent Mode Not entered Imagaing Radiology Impression Chest X-Ray 05/21/23 13:19 IMPRESSION: No acute cardiopulmonary pathology and no significant interval change when compared to 11/28/2022. Electronically Signed: Mateo Huston MD at 13:34 EST , Foot X-Ray 05/21/23 16:30 IMPRESSION: 1. Apparent fracture of the medial base of the first proximal phalanx without displacement. 2. Diffuse soft tissue swelling. Degenerative changes. Electronically Signed: Dalton Tomas DO at 19:41 EST , Ankle X-Ray 05/21/23 16:37 IMPRESSION: 1. Diffuse soft tissue swelling. 2. Extensive arthritic changes. No definite acute osseous abnormality. Electronically Signed: Dalton Tomas DO at 19:40 EST , Tibia/Fibula X-Ray 05/21/23 16:37 IMPRESSION: Diffuse soft tissue swelling, dystrophic soft tissue calcifications, and degenerative changes. No acute osseous abnormalities. Electronically Signed: Dalton Tomas DO at 20:49 EST ,
[2023-05-22] MEDS: Furosemide 40 MG/4 ML Vial IV ×2 (11:05→17:13)
[2023-05-22] MEDS: Insulin Glargine-YFGN 100 UNIT/ML Pen 30 UNIT SC ×2 (11:07→21:31)
[2023-05-22] MEDS: 0.9% Saline Lock 10 ML Syringe IV ×2 (11:08→17:13)
[2023-05-22] MEDS: Insulin Lispro 100 UNIT/ML INSULN.PEN 16 UNIT SC ×2 (12:33→17:08)
[2023-05-22 13:02] LABS: Bedside Glucose 309 mg/dL (74-106)
[2023-05-22 14:54] VITALS: BP 158/64; PULSE 92; RESP 18; TEMP 36.6; O2SAT 97
[2023-05-22] MEDS: Meropenem 500 MG in 0.9% Normal Saline (50mL MB+) 50 ML 100 MG IV ×2 (14:59→23:13)
[2023-05-22 17:37] LABS: Bedside Glucose 233 mg/dL (74-106)
[2023-05-22 19:50] VITALS: PULSE 91; RESP 21; O2SAT 90
[2023-05-22 21:00] VITALS: BP 147/71; PULSE 57; RESP 18; TEMP 36.4; O2SAT 97
[2023-05-22 21:32] VITALS: PULSE 83
[2023-05-22] MEDS: Metoprolol(XL)Succ 100 MG Tablet PO (21:32)
[2023-05-22] MEDS: amLODIPine 5 MG Tablet PO (21:32)
--- NOTE | 2023-05-22 23:14 | NURSING ---
vanco dose adjusted from pharmacy bag up as soon as med was on on the floor.
[2023-05-22 23:34] LABS: Bedside Glucose 239 mg/dL (74-106)
[2023-05-23 01:35] VITALS: PULSE 80; O2SAT 94
[2023-05-23 03:09] VITALS: BP 129/67; PULSE 76; RESP 18; TEMP 36.3; O2SAT 95
[2023-05-23] MEDS: Vancomycin HCl 1,500 MG in 0.9% Normal Saline (500mL Bag) 500 ML 250 MG IV (04:00)
[2023-05-23 05:05] VITALS: PULSE 68; O2SAT 92
[2023-05-23] MEDS: Gabapentin 800 MG Tablet PO ×2 (06:07→13:59)
[2023-05-23] MEDS: Meropenem 500 MG in 0.9% Normal Saline (50mL MB+) 50 ML 100 MG IV (06:07)
[2023-05-23 07:22] LABS: Absolute Lymphocyte Count 2.17 X10^3/uL (0.83-4.51); Absolute Neutrophil Count 6.8 X10^3/uL (2.0-7.7); Basophil# 0.05 X10^3/uL; Basophil% 0.5 % (0-1); Hematocrit 40.5 % (40-54); Hemoglobin 12.5 g/dL (13.0-16.5); Lymphocyte # 2.17 X10^3/ul (0.83-4.51); Lymphocyte % 21.5 % (19-41); Mean Corp Hgb Conc 30.9 g/dL (32-36); Mean Corpuscular Hgb 25.9 pg (27.0-32.0); Mean Platelet Vol. 9.7 fl (6.2-12.0); Monocyte# 0.69 X10^3/uL; Monocyte% 6.8 % (0-10); NRBC Flagged by Analyzer 0 % (0-5); Neutrophil # 6.83 X10^3/uL (2.7-7.7); Neutrophil % 67.7 % (47-70); Platelet Count 209 K/mm3 (150-450); RBC Distribution Width CV 14.1 % (11.6-14.6); RBC Distribution Width SD 42.7 fl (35.1-43.9); Red Blood Count 4.82 M/mm3 (4.6-6.2); White Blood Count 10.1 K/mm3 (4.4-11.0)
[2023-05-23 07:54] LABS: Anion Gap 3 (5-15); BUN 20 mg/dL (7-18); BUN/Creat Ratio 24.5 RATIO (10-20); Calcium,Total 8.6 mg/dL (8.5-10.1); Chloride 102 mmol/L (98-107); Creatinine, Serum 0.82 mg/dL (0.70-1.30); EST Glomerular Filtration Rate 100 mL/min (>60); Est Glom Filt Rate - Afr Amer 121 mL/min (>60); Estimated Creatinine Clearance 83.41 ml/min; Glucose 166 mg/dL (74-106); Potassium 3.8 mmol/L (3.5-5.1); Sodium Level 137 mmol/L (136-145)
[2023-05-23 08:29] LABS: Bedside Glucose 153 mg/dL (74-106)
[2023-05-23 09:00] VITALS: BP 131/61; PULSE 84; RESP 18; TEMP 36.8; O2SAT 93
[2023-05-23] MEDS: Insulin Glargine-YFGN 100 UNIT/ML Pen 30 UNIT SC (09:39)
[2023-05-23] MEDS: Insulin Lispro 100 UNIT/ML INSULN.PEN 16 UNIT SC ×3 (09:40→16:46)
[2023-05-23] MEDS: Insulin Lispro 100 UNIT/ML INSULN.PEN SC ×3 (09:41→16:46)
[2023-05-23] MEDS: Furosemide 40 MG/4 ML Vial IV (09:49)
[2023-05-23] MEDS: APIXABAN 5 MG TABLET PO (09:49)
--- NOTE | 2023-05-23 10:18 | CON.PCM.ID_ITS ---
Assessment & Plan Assessment/Plan (1) Cellulitis of right leg: PLAN: Right leg cellulitis strongly suspect streptococcal in etiology in a patient with severe penicillin allergy. At this time we will treat with clindamycin 900 mg IV every 8 hours. Once the erythema improves oral clindamycin transition will be reasonable. HPI Consult Data Date of Consult: 05/23/23 HPI Narrative Reason for Consultation: Right leg cellulitis HPI Narrative: LANI MARRERO, is a 67 M who presents with multiple comorbidities including morbid obesity, insulin requiring diabetes mellitus, coronary disease with atrial fibrillation who presents with increased erythema and swelling the right leg. No documented fevers. Patient was placed on vancomycin plus meropenem upon admission. Denies any trauma to the right leg. No nausea or vomiting. No cardiopulmonary distress. Overall hemodynamically stable. Does have issues with underlying lymphedema of the right leg. COUNTS INCLUDE 234 BEDS AT THE [facility] Medical History (Updated 05/21/23 @ 15:[address] Edward Luevano, DO) Alcohol use Ambulates with cane Anxiety Arthritis Atrial fibrillation Bilateral leg edema BiPAP (biphasic positive airway pressure) dependence [facility] Cardiology follow-up encounter Chronic anticoagulation Chronic cellulitis Depression Diabetes Dietary restriction Essential (primary) hypertension Fall Former smoker History of echocardiogram History of edema History of pain when walking History of ulceration HTN (hypertension) Hyperglycemia due to diabetes mellitus Hyperlipidemia Insulin dependent diabetes mellitus Leg cramps Low iron Lower extremity neuropathy Morbid obesity New onset atrial fibrillation (10/01/20) Obstructive sleep apnea Pickwickian syndrome Restless legs Shortness of breath on exertion Streptococcal bacteremia Thyroid nodule Type 2 diabetes mellitus Wears glasses Home Medications losartan 100 mg tablet 100 mg PO QHS Check with primary doctor 04/04/14 [History Last Taken 05/20/23] metformin 1,000 mg tablet 1,000 mg PO BIDCM diabetes 04/04/14 [History Last Taken 05/21/23] amlodipine 5 mg tablet 5 mg PO QHS BP 10/01/20 [History Last Taken 05/20/23] rzvnmxzg-jz-sjejc 300 mcg-K 60 mcg-lycop 600 mcg-lutein 300 mcg tablet 1 tablet PO DAILY supplemetn 10/01/20 [History Last Taken 05/21/23] metoprolol succinate 100 mg tablet,extended release 24 hr (Toprol XL) 100 mg PO QHS Check with primary doctor 12/03/20 [History Last Taken 05/20/23] insulin glargine U-300 conc 300 unit/mL (3 mL) subcutaneous pen (Toujeo Max U- 300 SoloStar) 55 unit subcut QHS diabetes 09/27/22 [History Last Taken 05/20/23] apixaban 5 mg tablet 5 mg PO BID blood thinner 11/29/22 [History Last Taken 05/21/23] gabapentin 800 mg tablet 800 mg PO .QID neuropathy 11/29/22 [History Last Taken 05/21/23] Allergy/AdvReac Type Severity Reaction Status Date / Time ampicillin Allergy Unknown Verified 03/24/23 10:59 peanut Allergy NEEDS Verified 11/28/22 04:32 FOLLOW-UP Penicillins Allergy Unknown Verified 11/28/22 04:32 Family History Mother Heart disease Diabetes Father Heart disease Cancer Surgical History History of amputation of toe History of wisdom tooth extraction Social History Smoking Status: Former smoker how long ago did patient quit smokin alcohol intake: never substance use type: does not use caffeine: Yes ROS ROS Narrative As stated in the history of present illness otherwise negative Physical Exam Narrative Alert responsive does not appear toxic, lungs are clear heart exam S1-S2. Distant heart sounds abdomen is obese but soft. I did take down the Matthew wrap of the right leg, there is diffuse none suppurative erythema the right leg no crepitus or signs of deep infection. Left leg looks benign Lab / Micro Data 05/23/23 07:00 05/23/23 07:00 Labs: Laboratory Results - last 24 hr 05/22/23 12:31: POC Glucose 309 H 05/22/23 17:07: POC Glucose 233 H 05/22/23 19:30: Vancomycin Trough 20.0 H 05/22/23 21:29: POC Glucose 239 H 05/23/23 07:00: WBC 10.1, RBC 4.82, Hgb 12.5 L, Hct 40.5, MCV 84.0, MCH 25.9 L, MCHC 30.9 L, RDW Std Deviation 42.7, RDW Coeff of Jada 14.1, Plt Count 209, MPV 9.7, Immature Gran % (Auto) 0.500, Neut % (Auto) 67.7, Lymph % (Auto) 21.5, Page % (Auto) 6.8, Eos % (Auto) 3.0, Baso % (Auto) 0.5, Absolute Neuts (auto) 6.8, Absolute Lymphs (auto) 2.17, Nucleated RBC % 0, Sodium 137, Potassium 3.8, Chloride 102, Carbon Dioxide 32.0, Anion Gap 3 L, BUN 20 H, Creatinine 0.82, Estim Creat Clear Calc 83.41, Est GFR (MDRD) Af Amer 121, Est GFR (MDRD) Non-Af 100, BUN/Creatinine Ratio 24.5 H, Glucose 166 H, Calcium 8.6 05/23/23 07:56: POC Glucose 153 H Micro: Microbiology 05/21/23 15:05 Urine, Clean Catch Urine Culture - Final Mixed Gram Positive Organisms ABG Data ABG results: ABG 05/22/23 10:22 Specimen Type ART Sample Site L Radial pH 7.38 Bicarbonate Actual 27.7 H Total CO2 29 Base Excess 3 H O2 Saturation 93 L ABG pCO2 46.4 H ABG pO2 68 L Jake Test Positive O2 Delivery Device Room Air Vent Mode Not entered
[2023-05-23 10:30] VITALS: O2SAT 91; O2SAT 96
--- NOTE | 2023-05-23 11:29 | CASEMGMT ---
Addendum entered by Ines Blum 05/23/23 15:56: ZEN GOODE back into pt room, pt states he will not know if he has transportation home until 5pm. Updated hospitalist. Addendum entered by Ines Blum 05/23/23 15:09: ZEN GOODE made aware by hospitalist that pt needs transportation home. TC to [facility], they are unable to take pt home today d/t it being so late in the day. ZEN GOODE into pt room, pt states he is working on transportation home. He is currently on the phone working on this. Provided pt with a rx for outpt therapy per ZEN GOODE assessment and rx for test strips and lancets for his BGM. ZEN GOODE to check back on transportation. Original Note: ZEN GOODE into pt room, pt sitting up in chair. Discussed dc planning with pt. He is aware that he did not qualify for oxygen at home. Discussed HHC with pt and he states he has had in the past and those people can jump off a martin. Pt does not feel this was beneficial to him and declines need for HHC. Pt denies any homegoing needs. He states he has DME in the home. Updated hospitalist.
--- NOTE | 2023-05-23 12:10 | CASEMGMT ---
RN?CM?SUPER[employer]OR [employer]?CM?to room to meet with patient for initial transition planning/care coordination?assessment.?RN?CM?introduced self and role at [facility].? Pt voices understanding and consents to?assessment?at this time.? Pt sitting up in chair in room in no distress at this time.? Pt is A/O at this time and answers all questions appropriately.?? Care providers, pharmacy, and demographics verified/updated at this time. PCP: Dr Bernabe Reese Specialists: Dr Che- pulmonology Preferred Pharmacy:[facility] Insurance: [facility] Prescription Benefit:?yes Living Will/HPOA:?Pt states he does not think he has done a LW, but has done a HCPOA, who is his sister, Norma CARTER: Sister/POANorma. Son, Rogelio Living Arrangements: lives alone in [place] w/2 steps to enter. Independent w/ADL's and IADL's and manages his own medications. 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 Transportation:?Pt states drives self and states no transportation concerns at this time.? DME: ?States has the following DME:?shower chair, RTS, cane, walker, lift chair, grab bars, BIPAP, functioning glucometer. Pt states he is low on test strips, insulin pen needles, and lancets, stating his son got the wrong lancets last time. Call placed to [facility]. No refills remaining on the insulin pen needles and she is not showing a script for test strips or lancets, stating they have on file that pt has a Dexcom CGS. RN RUSSEL asked pt about this. He states he is aware the Dexcom was ordered, but he never picked it up stating that he was told that his insurance would not cover for it. Ines, MS3 ZEN GOODE, made aware and notified that pt needs script for lancets, insulin pen needles, and test strips. Pt states no need for further DME at this time.? HHC/SNF: Pt has been to the [facility] (11/2022) and has had HHC in the past. He wishes to discharge home and declines wanting HHC. 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 Discussed OP therapy. Pt states he may want to go to [facility]. Made aware a script can be provided @ discharge and instructed on use. He is also interested in Private-duty aide agencies. Info provided at this time. Pt wishes to return home and states has no concerns with going home at time of discharge.? CM?to follow for home oxygen needs and any further discharge planning/needs.? Pt voices no further concerns/needs at this time.? Advised pt to ask for?CM?if any further questions/concerns/needs arise.? Voices understanding. PLAN:??Home w/script for OP therapy and scripts for diabetic supplies. Woodrow BSN?RN?CM
[2023-05-23 12:11] LABS: Bedside Glucose 268 mg/dL (74-106)
--- NOTE | 2023-05-23 13:18 | PCM.DC.SUM ---
Providers Date of Admission: 05/21/23 Date of Discharge: 05/23/23 Primary Care Physician: Dr. Bernabe Reese MD Consultations 05/21/23 17:49 Consult: Infectious Disease Routine Consulting Provider: Gregorio Mccarthy Reason for Consult: RLE cellulitis, concern for OM EMERGENT Consult: No Notified: Yes Date Notified: 05/22/23 Time Notified: 20:24 Method of Notification: Answering Service 05/21/23 23:59 Consult: Podiatry Routine Consulting Provider: Albert Root Reason for Consult: rle cellulitis r/o om EMERGENT Consult: No Notified: Yes Date Notified: 05/22/23 Time Notified: 07:20 Method of Notification: Text Reason For Visit: HYPOXIA, WEAKNESS Diagnosis Discharge Diagnosis (1) Cellulitis of right leg: Status: Acute Code(s): L03.115 - Cellulitis of right lower limb Plan Exertional hypoxia -COVID and flu are negative -Patient has no respiratory symptoms so we will defer acute respiratory panel at this time -Currently on room air -Will check room air blood gas as I do suspect patient may have obesity hypoventilation syndrome with a BMI of 56.5 -He is chronically anticoagulated due to history of atrial fibrillation therefore I doubt he has any VTE -Echocardiogram in November that showed 65% EF, inability to assess folic dysfunction due to poor study, mildly enlarged left atrium with no significant valvular disease--> unfortunately right ventricular systolic pressure was unable to be assessed -Will give Lasix 40 mg IV push twice daily--patient is not on any chronic diuretic however with his size and sleep apnea I do suspect he probably has some right ventricular elevated pressures and may benefit from diuresis. Right lower extremity cellulitis with history of left foot osteomyelitis -Continue vancomycin but discontinue ceftriaxone and Flagyl and replace with meropenem -Patient does have allergy to penicillins but is unclear -Cultures pending -No obvious osseous evidence of osteomyelitis on imaging at this time -Podiatry and ID consultation Fracture of the medial base of the first proximal phalanx without displacement -Podiatry consult was pending -I suspect at the very least he will need a walking shoe DM-2 -Poorly controlled with recent hemoglobin A1c of 10.2 -Continue home insulin but increase basal insulin to 30 units twice daily from 45 units nightly -Increase prandial insulin from 10 to 16 units 3 times daily -SSI -Accu-Cheks as ordered -Will hold metformin while hospitalized -It is imperative for healing but he does improve glycemic control Hypertension -Hold losartan for now as blood pressure was on the borderline when he came in -Continue metoprolol -Restart home nocturnal amlodipine Diabetic neuropathy -Continue home gabapentin Paroxysmal atrial fibrillation -Continue home apixaban -Continue home beta-rosie TODD -Continue home nocturnal BiPAP Morbid obesity -BMI is 56.5 -Recommend weight loss -Complicates treatment, prognosis, outcomes DVT prophylaxis -Continue home apixaban CODE STATUS -Full code Medications at Discharge Home Medications losartan 100 mg tablet 100 mg PO QHS Check with primary doctor 04/04/14 metformin 1,000 mg tablet 1,000 mg PO BIDCM diabetes 04/04/14 amlodipine 5 mg tablet 5 mg PO QHS BP 10/01/20 lfngnjul-fa-vsjtm 300 mcg-K 60 mcg-lycop 600 mcg-lutein 300 mcg tablet 1 tablet PO DAILY supplemetn 10/01/20 metoprolol succinate 100 mg tablet,extended release 24 hr (Toprol XL) 100 mg PO QHS Check with primary doctor 12/03/20 insulin glargine U-300 conc 300 unit/mL (3 mL) subcutaneous pen (Toujeo Max U-300 SoloStar) 55 unit subcut QHS diabetes 09/27/22 apixaban 5 mg tablet 5 mg PO BID blood thinner 11/29/22 gabapentin 800 mg tablet 800 mg PO .QID neuropathy 11/29/22 clindamycin HCl 300 mg capsule (Cleocin HCl) 900 mg (3 x 300 mg) PO Q8H #72 caps 05/23/23 furosemide 40 mg tablet (Lasix) 40 mg PO DAILY #30 tabs 05/23/23 Hospital Course Operations None Summary of Care Provided Minutes Spent on Discharge: 38 Hospital Course: Mr. Zaragoza is a super morbidly obese white male who presented to the emergency department at [facility] on 05/21/2023 with shortness of breath, generalized weakness, and worsening right lower extremity edema. Upon presentation he had no conversational dyspnea and did not appear to be in any acute distress. He was satting well on room air with no increased work of breathing at time of evaluation the emergency department. 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 He reported over the last few days prior to presentation he had felt generally weaker than typical and had increased shortness of breath with exertion. He also noted that his right lower leg had become more red and swollen. He denied any fever or chills and had been using a cane to ambulate around the house. He did indicate he had been more sedentary over the past few days due to right lower extremity swelling and pain. He denied any cough or sputum and indicates he has a known history of sleep apnea and religiously wears a BiPAP nocturnally. His CBC was unremarkable. His chemistry panel was unremarkable other than significant hyperglycemia with a blood sugar of 293. A lactic acid was obtained and found to be 2.7. CRP was markedly elevated at 153. His UA is not consistent with infection. Chest x-ray was unremarkable when compared to previous on 11/28/2022. Imaging of the right foot ankle and tibia and fibula were performed and demonstrated fracture of the medial base of the first proximal phalanx without displacement and diffuse soft tissue swelling, extensive arthritic changes at the ankle, and diffuse soft tissue swelling of the distal left lower extremity. COVID and flu are negative. He was admitted to the medical floor. Admit to and on broad-spectrum antibiotics with consultation to infectious disease and podiatry. Podiatry felt that the fracture was old and no intervention was needed as the patient was not symptomatic. Infectious disease recommended we continue clindamycin 900 mg 3 times daily to complete a course of antibiotics. Overall his leg looked less red and by the a.m. of 05/23/2023 and the patient was adamant that he needed to get home so we could make his appointments tomorrow. With regards to his shortness of breath we did place him on some Lasix. I do suspect he probably has some pulmonary hypertension and obesity hypoventilation syndrome. We did do a room air blood gas and he is a slight elevation is 80 gradient however it was not all that remarkable. I discussed salt intake with him and he states he does not add any salt but he does eat out frequently. We did have the dietitian come in and talk with him about low-salt diet and how to avoid high salt intake and started him on Lasix 40 mg daily. He was seen by physical and Occupational Therapy and they recommended ongoing home health care however the patient deferred this at the time of discharge. A prescription for Lasix was sent to his local pharmacy as well as his prescription for clindamycin. He is to complete the oral antibiotics for completion of the treatment duration noted. I have asked him to follow-up with his primary care physician within the next 3 to 5 days and obtain a basic metabolic profile to reassess his renal function and electrolytes with the addition of Lasix. I also recommended he follow-up with pulmonary medicine as an outpatient and gave him information to call to make an appointment to be seen within the next month. We did do an ambulatory pulse ox prior to discharge and the patient did not require any supplemental oxygen. At his request, the patient was discharged in stable condition on 05/23/2023. Discharge diagnoses: Exertional hypoxia-resolved Right lower extremity cellulitis Fracture of the medial base of the first proximal phalanx without displacement-chronic DM-2-poorly controlled Hypertension Diabetic neuropathy PAF TODD Morbid obesity Physical Exam Const alert, oriented x3, no apparent distress and well nourished; Negative for average body habitus or healthy appearing Constitutional Narrative: Morbidly obese, upper middle-aged, white male, sitting up in a chair at the bedside, watching television, appears comfortable, nontoxic General Appearance: cooperative, comfortable, well kempt and well developed Orientation / Consciousness: awake, oriented to person, oriented to place and oriented to time Exam Limitations: no limitations Nutritional Appearance: morbidly obese HEENT normocephalic, head/scalp atraumatic, hearing grossly normal bilaterally and moist oral mucous membranes HEENT Narrative: Mallampati 3-4, no thrush Eyes PERRL and conjunctivae normal Eyes Narrative: No scleral icterus Neck no lymphadenopathy and supple Neck Narrative: Neck is short and thick, trachea midline, no thyroid enlargement Resp normal respiratory effort, no retractions, no use of accessory muscles and clear to auscultation bilaterally Resp Narrative: Good air movement bilaterally, no wheezing or crackles noted Auscultation: Negative for rales, rhonchi or wheezes Cardio regular rate, regular rhythm, S1 normal heart sound, S2 normal heart sound, no murmurs, no rub, no gallops and no clicks GI normal to inspection, nondistended, normoactive bowel sounds, soft to palpation and non-tender GI Narrative: Umbilical hernia present, large protuberant abdomen Extremity Extremity Narrative: Bilateral lower extremity edema that appears consistent with lymphedema, right lower extremity with significant erythema but no wounds, no cyanosis or clubbing Skin Skin Narrative: Erythema in the right lower extremity from just below the knee to just above the ankle, skin is dry without any wounds open noted-erythema has decreased in intensity Neuro oriented x3, moves all extremities and no focal motor deficits Speech: speech normal Psych mental status grossly normal and affect normal Psych Narrative: Talkative, eye contact is good, patient interacts appropriately Weight / BMI Weight Weight: 168.51 kg Body Mass Index (BMI) 56.5 ABG / Lab / Microbiology Data 05/23/23 07:00 05/23/23 07:00 Laboratory: Laboratory Results - last 24 hr 05/22/23 17:07: POC Glucose 233 H 05/22/23 19:30: Vancomycin Trough 20.0 H 05/22/23 21:29: POC Glucose 239 H 05/23/23 07:00: WBC 10.1, RBC 4.82, Hgb 12.5 L, Hct 40.5, MCV 84.0, MCH 25.9 L, MCHC 30.9 L, RDW Std Deviation 42.7, RDW Coeff of Jada 14.1, Plt Count 209, MPV 9.7, Immature Gran % (Auto) 0.500, Neut % (Auto) 67.7, Lymph % (Auto) 21.5, [place] % (Auto) 6.8, Eos % (Auto) 3.0, Baso % (Auto) 0.5, Absolute Neuts (auto) 6.8, Absolute Lymphs (auto) 2.17, Nucleated RBC % 0, Sodium 137, Potassium 3.8, Chloride 102, Carbon Dioxide 32.0, Anion Gap 3 L, BUN 20 H, Creatinine 0.82, Estim Creat Clear Calc 83.41, Est GFR (MDRD) Af Amer 121, Est GFR (MDRD) Non-Af 100, BUN/Creatinine Ratio 24.5 H, Glucose 166 H, Calcium 8.6 05/23/23 07:56: POC Glucose 153 H 05/23/23 11:53: POC Glucose 268 H Microbiology: Microbiology 05/21/23 13:25 Blood Culture (Wb) - Anticubital Right Blood Culture - Preliminary No growth in 48 hours. 05/21/23 15:05 Urine, Clean Catch Urine Culture - Final Mixed Gram Positive Organisms 05/21/23 13:15 Nasal Secretion SARS-CoV-2 & FLU Antigen (Rapid) - Final D/C Instructions Discharge Diet: Low fat / Low cholesterol, 1800 Calorie Control Diet, 8 Cup Fluid Restriction and 2000 mg Sodium Diet Discharge Activity: Return to Normal Activity Return to work on: 05/24/23 Meaningful Use Info Meaningful Use Diagnoses (Choose all that apply): None applicable Discharge Plan Admission Admit Date/Time: 05/21/23 16:01 Primary Reason for Your Visit: Shortness of breath/weakness/right lower extremity swelling Attending Provider: Julee Spain Primary Care Provider: Bernabe Reese Consulting Providers: Ethan Santos; Albert Root; Gregorio Mccarthy Instructions Additional Instructions / Restrictions: . Please ask your primary care physician to obtain a basic metabolic profile in the next 5 to 7 days to recheck your kidney function and sodium/potassium with the initiation of oral Lasix. Discharge Orders/Prescriptions Prescriptions: New furosemide [Lasix] 40 mg tablet 40 mg PO DAILY Qty: 30 1RF clindamycin HCl [Cleocin HCl] 300 mg capsule 900 mg PO Q8H Qty: 72 0RF Continued Toujeo Max U-300 SoloStar 300 unit/mL (3 mL) insulin pen 55 unit subcut QHS metformin 1,000 MG tablet 1,000 mg PO BIDCM losartan 100 MG tablet 100 mg PO QHS amlodipine 5 MG tablet 5 mg PO QHS [id number] 1 EACH tablet 1 tablet PO DAILY metoprolol succinate [Toprol XL] 100 mg Tablet Extended Release 24 Hr 100 mg PO QHS apixaban 5 mg tablet 5 mg PO BID gabapentin 800 mg tablet 800 mg PO .QID Referrals / Follow Up: Rocky Edwards MD [Med Staff - Active Staff] - Within 1 Month (Please call to set up an appointment to be seen by the lung doctor) Bernabe Reese MD [Primary Care Provider] - 3-5 Days Disposition Disposition (needs filled in before D/C Order can be placed): Home, Self Care Charges/Coding Visit Charges Inpatient E&M: 74498 Disch Hosp >30min
--- NOTE | 2023-05-23 13:53 | PHA.DC_ITS ---
Pharmacy [facility] has performed discharge medication reconciliation and counseling for this patient. The patient's discharge medication list was reviewed for discrepancies and discrepancies were resolved. The patient was counseled on the following discharge medications and changes in medications for homegoing were reviewed. The Reason for Use, instructions for use, and potential side effects were reviewed for all new medications. The patient's questions regarding all of their medications were answered. 1. Clindamycin 900 mg PO Q8H x 8 days 2. Furosemide 40 mg PO daily The patient was able to verbally demonstrate an understanding of their discharge medications. Medications at Discharge Home Medications losartan 100 mg tablet 100 mg PO QHS Check with primary doctor 04/04/14 metformin 1,000 mg tablet 1,000 mg PO BIDCM diabetes 04/04/14 amlodipine 5 mg tablet 5 mg PO QHS BP 10/01/20 rwkeazvq-sj-ooomy 300 mcg-K 60 mcg-lycop 600 mcg-lutein 300 mcg tablet 1 tablet PO DAILY supplemetn 10/01/20 metoprolol succinate 100 mg tablet,extended release 24 hr (Toprol XL) 100 mg PO QHS Check with primary doctor 12/03/20 insulin glargine U-300 conc 300 unit/mL (3 mL) subcutaneous pen (Toujeo Max U- 300 SoloStar) 55 unit subcut QHS diabetes 09/27/22 apixaban 5 mg tablet 5 mg PO BID blood thinner 11/29/22 gabapentin 800 mg tablet 800 mg PO .QID neuropathy 11/29/22 clindamycin HCl 300 mg capsule (Cleocin HCl) 900 mg (3 x 300 mg) PO Q8H #72 caps 05/23/23 furosemide 40 mg tablet (Lasix) 40 mg PO DAILY #30 tabs 05/23/23
[2023-05-23] MEDS: Clindamycin 900 MG/50 ML BAG 75 MG IV (13:59)
[2023-05-23 17:40] LABS: Bedside Glucose 175 mg/dL (74-106)
--- NOTE | 2023-05-23 18:23 | PN_ITS ---
Subjective Subjective Patient seen and evaluated this evening with bilateral foot dependent in chair. He states that he is feeling better and has finished his IV antibiotic and is going home tonight. Objective Data Objective Data Vital Signs: Vital Signs Temp Pulse Resp BP Pulse Ox O2 Del Method FiO2 98.2 F 84 18 131/61 H 96 Room Air 21 05/23/23 09:00 05/23/23 09:00 05/23/23 09:00 05/23/23 09:00 05/23/23 10:30 05/23/23 09:00 05/23/23 05:05 Oxygen Delivery Method Room Air Weight: 168.51 kg Body Mass Index (BMI) 56.5 Intake & Output: Intake and Output for Last 24 Hours 05/21/23 05/22/23 05/23/23 23:59 23:59 23:59 Intake Total 590 / 940 2560 / 2860 1130 / 1130 Output Total 500 / 500 Balance 590 / 940 2060 / 2360 1130 / 1130 Lab / Micro Data 05/23/23 07:00 05/23/23 07:00 Labs: Laboratory Results - last 24 hr 05/22/23 19:30: Vancomycin Trough 20.0 H 05/22/23 21:29: POC Glucose 239 H 05/23/23 07:00: WBC 10.1, RBC 4.82, Hgb 12.5 L, Hct 40.5, MCV 84.0, MCH 25.9 L, MCHC 30.9 L, RDW Std Deviation 42.7, RDW Coeff of Jada 14.1, Plt Count 209, MPV 9.7, Immature Gran % (Auto) 0.500, Neut % (Auto) 67.7, Lymph % (Auto) 21.5, [place] % (Auto) 6.8, Eos % (Auto) 3.0, Baso % (Auto) 0.5, Absolute Neuts (auto) 6.8, Absolute Lymphs (auto) 2.17, Nucleated RBC % 0, Sodium 137, Potassium 3.8, Chloride 102, Carbon Dioxide 32.0, Anion Gap 3 L, BUN 20 H, Creatinine 0.82, Estim Creat Clear Calc 83.41, Est GFR (MDRD) Af Amer 121, Est GFR (MDRD) Non-Af 100, BUN/Creatinine Ratio 24.5 H, Glucose 166 H, Calcium 8.6 12/04/23 07:56: POC Glucose 153 H 05/23/23 11:53: POC Glucose 268 H 05/23/23 16:42: POC Glucose 175 H Micro: Microbiology 05/21/23 13:25 Blood Culture (Wb) - Anticubital Right Blood Culture - Preliminary No growth in 48 hours. 05/21/23 15:05 Urine, Clean Catch Urine Culture - Final Mixed Gram Positive Organisms 05/21/23 13:15 Nasal Secretion SARS-CoV-2 & FLU Antigen (Rapid) - Final Physical Exam Const alert, oriented x3, no apparent distress and well nourished General Appearance: cooperative HEENT normocephalic Eyes General Eye: normal appearance of both eyes Neck General: normal visual inspection Lymph Lymphatic: no lymphadenopathy noted Resp normal respiratory effort and normal air movement Cardio regular rate and regular rhythm Extremity Extremity Narrative: Left lower extremity: DP and PT pulses palpable with adequate capillary fill time to the digits. There is +3 pitting edema noted to the lower extremity with brawny discoloration of the lower extremity and hemosiderin deposition of the skin consistent with chronic venous stasis. Right lower extremity: DP and PT pulses palpable with adequate capillary fill time to digits. There is +3 pitting edema noted to lower extremity with resolving erythema. There is also brawny discoloration of the lower extremity and hemosiderin deposition of the skin consistent with chronic venous stasis. Muscle strength 5 of 5 and age-appropriate bilateral. No pain to palpation of the lower extremity bilateral. Range of motion of the ankle is decreased in dorsiflexion bilateral. Range of motion of the first metatarsophalangeal joint is decreased bilateral. 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 Radiographs did demonstrate diffuse soft tissue swelling with extensive arthritic changes of the foot. No evidence of soft tissue gas or osteomyelitis. His erythema of the right lower extremity is improving on IV antibiotic, clindam ycin 900 mg. 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 Discussed with him continued elevation of the lower extremities with use of Tubigrip compression to aid in edema control. Discussed with him this is essential for decreasing lower extremity edema in addition to discouraging recidivism of his cellulitis. Discussed transition towards compression stocking full-time when lower extremity edema is under control. Discussed proper diabetic diet to ensure tight glycemic control. Also discussed healthy lifestyle for weight management/weight reduction. Discussed to not ambulate barefoot and to check feet daily. Encouraged shoe gear to be worn at all times. Encouraged continuing with disaster or damage control specialist for diabetic care upon discharge. Medicine team currently following for medical management, they are greatly appreciated. Infectious disease following for management of antibiotics, they are greatly appreciated. Infectious disease plan to discharge on oral clindamycin. Patient is set to be discharged home tonight on oral antibiotics. He will follow-up with primary care following discharge and is recommended to continue to follow with disaster or damage control specialist for continued diabetic care and lower extremity care. He is agreeable to this. Ralph Mancini Jr. Peña.P.M. [facility] [phone]
== END 2023-05-23 20:45 | disposition home or self-care (01) | DRG 638 ==
LOC: ED 15:48 → MS3 16:02
PROVIDERS: Nurse Practitioner; Admitting Provider Hospitalist; Emergency Provider Emergency Medicine; PCP Family Medicine; Visit Provider Internal Medicine
DX: E11.628 Type 2 diabetes mellitus with other skin complications (principal); L03.115 Cellulitis of right lower limb; I48.19 Other persistent atrial fibrillation; E66.2 Morbid (severe) obesity with alveolar hypoventilation; Z68.43 Body mass index [BMI] 50.0-59.9, adult; I27.20 Pulmonary hypertension, unspecified; E86.0 Dehydration; E11.42 Type 2 diabetes mellitus with diabetic polyneuropathy; E11.65 Type 2 diabetes mellitus with hyperglycemia; Z79.4 Long term (current) use of insulin; Z89.432 Acquired absence of left foot; I48.0 Paroxysmal atrial fibrillation; I10 Essential (primary) hypertension; I87.2 Venous insufficiency (chronic) (peripheral); E78.5 Hyperlipidemia, unspecified; M19.071 Primary osteoarthritis, right ankle and foot; I89.0 Lymphedema, not elsewhere classified; B95.5 Unspecified streptococcus as the cause of diseases classified elsewhere; R30.0 Dysuria; R09.02 Hypoxemia; R53.81 Other malaise; R53.1 Weakness; Z11.52 Encounter for screening for COVID-19; Z79.01 Long term (current) use of anticoagulants; Z79.84 Long term (current) use of oral hypoglycemic drugs; Z79.899 Other long term (current) drug therapy; Z87.891 Personal history of nicotine dependence; Z88.0 Allergy status to penicillin
CPT/HCPCS: 36415; 36600; 71045; 73590; 73600; 73620; 80048; 80202; 81001; 82803; 82962; 83036; 83605; 83880; 84484; 85025; 85027; 86140; 87040; 87086; 87088; 87428; 93005; 94002; 94003; 94660; 94668; 97162; 97165; 97530; 99285; J2185; J7040; A4216; J0696; J1940

== ENCOUNTER → 2023-07-11 | Outpatient (CLI) | payer MEDICARE, OTHER, SELFPAY ==
[2023-07-11 12:16] LABS: Bacteria 0 SEEN /hpf (None Seen); Mucous, Urine 0 SEEN /hpf (<or=2+); Red Blood Cells-Urine 0 SEEN /hpf (0-5); White Blood Cells 0 SEEN /hpf (0-5)
[2023-07-11 13:39] LABS: Absolute Lymphocyte Count 1.91 X10^3/uL (0.83-4.51); Basophil# 0.05 X10^3/uL; Basophil% 0.7 % (0-1); Eosinophils% 2.6 % (0-5); Hematocrit 39.3 % (40-54); Hemoglobin 12.3 g/dL (13.0-16.5); Lymphocyte # 1.91 X10^3/ul (0.83-4.51); Lymphocyte % 24.9 % (19-41); Mean Corp Hgb Conc 31.3 g/dL (32-36); Mean Corpuscular Hgb 25.9 pg (27.0-32.0); Mean Corpuscular Volume 82.7 fL (80-94); Mean Platelet Vol. 10.6 fl (6.2-12.0); Monocyte% 6.5 % (0-10); NRBC Flagged by Analyzer 0 % (0-5); Neutrophil # 4.98 X10^3/uL (2.7-7.7); Platelet Count 180 K/mm3 (150-450); RBC Distribution Width CV 14.8 % (11.6-14.6); RBC Distribution Width SD 44.7 fl (35.1-43.9); Red Blood Count 4.75 M/mm3 (4.6-6.2); White Blood Count 7.7 K/mm3 (4.4-11.0)
[2023-07-11 13:43] LABS: Color, Urine Yellow (Yellow); Glucose, Dipstick 250 mg/dl (Normal); Ketone-Dipstick Negative (Negative); Leukocyte Esterase-Dipstick Negative /ul (Negative); Nitrite-Dipstick Negative (Negative); Occult Blood-Urine 10 /ul (Negative); Protein-Dipstick 30 mg/dl (Negative); Specific Gravity, Urine 1.025 (1.002-1.030); Urine Bilirubin Dipstick Negative (Negative); Urine Clarity Clear (Clear); Urine Urobilinogen Normal (Normal)
[2023-07-11 13:51] LABS: Squamous Epithelial Cells - UA 0-5 SEEN /hpf (0-5)
[2023-07-11 14:00] LABS: Hemoglobin A1c 9.8 % (3.8-5.6)
[2023-07-11 14:04] LABS: Microalbumin:Creatinine Ratio 234.6 mg/g CRE (<30 mg/g CRE)
[2023-07-11 14:18] LABS: ALB/GLOB Ratio 0.7 RATIO (0.9-2.4); AST(SGOT) 22 U/L (15-37); Alanine Aminotransfer ALT/SGPT 23 U/L (16-61); Alkaline Phosphatase 89 U/L (45-117); Anion Gap 7 (5-15); BUN 12 mg/dL (7-18); BUN/Creat Ratio 14.8 RATIO (10-20); Calcium,Total 9.3 mg/dL (8.5-10.1); Chloride 105 mmol/L (98-107); Cholesterol 172 mg/dL (200); Creatinine, Serum 0.81 mg/dL (0.70-1.30); EST Glomerular Filtration Rate 100 mL/min (>60); Est Glom Filt Rate - Afr Amer 121 mL/min (>60); Globulin 4.4 g/dL (2.2-4.2); Glucose 224 mg/dL (74-106); High Density Lipoprotein 46 mg/dL; Magnesium 1.8 mg/dL (1.6-2.6); Potassium 3.7 mmol/L (3.5-5.1); Protein, Total 7.4 g/dL (6.4-8.2); Sodium Level 141 mmol/L (136-145); Thyroid Stim Hormone (TSH) 1.12 uIU/mL (0.358-3.74); Triglycerides 182 mg/dL; Very Low Density Lipoprotein 36 mg/dL (5-40)
== END | disposition home or self-care (01) ==
LOC: LAB 12:11
PROVIDERS: PCP Family Medicine; Referring Provider Family Medicine; Visit Provider Family Medicine
DX: Z00.00 Encounter for general adult medical examination without abnormal findings (principal); E11.8 Type 2 diabetes mellitus with unspecified complications; I48.91 Unspecified atrial fibrillation
CPT/HCPCS: 36415; 80053; 80061; 81001; 82043; 82570; 83036; 83735; 84443; 85025

== ENCOUNTER → 2023-09-09 | Outpatient (CLI) | payer MEDICARE, OTHER, SELFPAY ==
[2023-09-09 10:18] LABS: Absolute Lymphocyte Count 2.04 X10^3/uL (0.83-4.51); Absolute Neutrophil Count 4.7 X10^3/uL (2.0-7.7); Basophil# 0.07 X10^3/uL; Basophil% 0.9 % (0-1); Eosinophil# 0.28 X10^3/uL; Eosinophils% 3.6 % (0-5); Hematocrit 43.2 % (40-54); Hemoglobin 13.4 g/dL (13.0-16.5); Lymphocyte # 2.04 X10^3/ul (0.83-4.51); Lymphocyte % 26.5 % (19-41); Mean Corpuscular Hgb 25.3 pg (27.0-32.0); Mean Corpuscular Volume 81.7 fL (80-94); Mean Platelet Vol. 10.8 fl (6.2-12.0); Monocyte# 0.57 X10^3/uL; Monocyte% 7.4 % (0-10); NRBC Flagged by Analyzer 0 % (0-5); Neutrophil # 4.69 X10^3/uL (2.7-7.7); Neutrophil % 61.1 % (47-70); Platelet Count 204 K/mm3 (150-450); RBC Distribution Width CV 14.6 % (11.6-14.6); RBC Distribution Width SD 42.5 fl (35.1-43.9); Red Blood Count 5.29 M/mm3 (4.6-6.2); White Blood Count 7.7 K/mm3 (4.4-11.0)
[2023-09-09 11:34] LABS: ALB/GLOB Ratio 0.7 RATIO (0.9-2.4); AST(SGOT) 23 U/L (15-37); Alanine Aminotransfer ALT/SGPT 22 U/L (16-61); Albumin, Serum 3.1 g/dL (3.2-5.0); Alkaline Phosphatase 91 U/L (45-117); Anion Gap 8 (5-15); BUN 18 mg/dL (7-18); BUN/Creat Ratio 20.3 RATIO (10-20); Calcium,Total 9.2 mg/dL (8.5-10.1); Chloride 100 mmol/L (98-107); Cholesterol 158 mg/dL (200); Creatinine, Serum 0.88 mg/dL (0.70-1.30); EST Glomerular Filtration Rate 91 mL/min (>60); Est Glom Filt Rate - Afr Amer 110 mL/min (>60); Globulin 4.6 g/dL (2.2-4.2); Glucose 303 mg/dL (74-106); High Density Lipoprotein 42 mg/dL; Potassium 4.3 mmol/L (3.5-5.1); Protein, Total 7.7 g/dL (6.4-8.2); Sodium Level 134 mmol/L (136-145); Triglycerides 179 mg/dL; Very Low Density Lipoprotein 36 mg/dL (5-40)
[2023-09-09 17:06] LABS: Hemoglobin A1c 9.6 % (3.8-5.6)
== END | disposition home or self-care (01) ==
LOC: MFPLAB 09:03
PROVIDERS: PCP Family Medicine; Visit Provider Family Medicine
DX: E11.8 Type 2 diabetes mellitus with unspecified complications (principal)
CPT/HCPCS: 36415; 80053; 80061; 83036; 85025

== ENCOUNTER → 2023-12-28 | Outpatient (CLI) | payer MEDICARE, OTHER, SELFPAY ==
[2023-12-28 15:18] LABS: Absolute Lymphocyte Count 2.46 X10^3/uL (0.83-4.51); Absolute Neutrophil Count 4.2 X10^3/uL (2.0-7.7); Basophil# 0.05 X10^3/uL; Basophil% 0.7 % (0-1); Eosinophil# 0.16 X10^3/uL; Eosinophils% 2.1 % (0-5); Hematocrit 43.5 % (40-54); Hemoglobin 14.4 g/dL (13.0-16.5); Lymphocyte # 2.46 X10^3/ul (0.83-4.51); Mean Corp Hgb Conc 33.1 g/dL (32-36); Mean Corpuscular Hgb 27.3 pg (27.0-32.0); Mean Corpuscular Volume 82.5 fL (80-94); Mean Platelet Vol. 10.4 fl (6.2-12.0); Monocyte# 0.53 X10^3/uL; Monocyte% 7.1 % (0-10); NRBC Flagged by Analyzer 0 % (0-5); Neutrophil # 4.24 X10^3/uL (2.7-7.7); Neutrophil % 56.8 % (47-70); Platelet Count 193 K/mm3 (150-450); RBC Distribution Width CV 14.5 % (11.6-14.6); RBC Distribution Width SD 42.6 fl (35.1-43.9); Red Blood Count 5.27 M/mm3 (4.6-6.2); White Blood Count 7.5 K/mm3 (4.4-11.0)
[2023-12-28 16:02] LABS: ALB/GLOB Ratio 0.7 RATIO (0.9-2.4); AST(SGOT) 27 U/L (15-37); Alanine Aminotransfer ALT/SGPT 27 U/L (16-61); Albumin, Serum 3.2 g/dL (3.2-5.0); Alkaline Phosphatase 109 U/L (45-117); Anion Gap 10 (5-15); BUN 19 mg/dL (7-18); BUN/Creat Ratio 19.5 RATIO (10-20); Calcium,Total 9.5 mg/dL (8.5-10.1); Chloride 101 mmol/L (98-107); Cholesterol 201 mg/dL (200); Creatinine, Serum 0.98 mg/dL (0.70-1.30); EST Glomerular Filtration Rate 81 mL/min (>60); Est Glom Filt Rate - Afr Amer 98 mL/min (>60); Globulin 4.4 g/dL (2.2-4.2); Glucose 301 mg/dL (74-106); High Density Lipoprotein 42 mg/dL; Magnesium 1.9 mg/dL (1.6-2.6); Potassium 4.2 mmol/L (3.5-5.1); Protein, Total 7.6 g/dL (6.4-8.2); Sodium Level 134 mmol/L (136-145); Triglycerides 309 mg/dL; Very Low Density Lipoprotein 62 mg/dL (5-40)
[2023-12-28 16:32] LABS: Microalbumin:Creatinine Ratio 455.5 mg/g CRE (<30 mg/g CRE)
[2023-12-28 17:10] LABS: Hemoglobin A1c 10.6 % (3.8-5.6)
== END | disposition home or self-care (01) ==
LOC: MFPLAB 12:29
PROVIDERS: PCP Family Medicine; Visit Provider Family Medicine
DX: E11.8 Type 2 diabetes mellitus with unspecified complications (principal); I48.91 Unspecified atrial fibrillation
CPT/HCPCS: 36415; 80053; 80061; 81001; 82043; 82570; 83036; 83735; 85025

== ENCOUNTER → 2024-02-13 | Outpatient (CLI) | payer MEDICARE, OTHER, SELFPAY ==
--- NOTE | 2024-02-13 12:36 | US_ITS ---
EXAM: US SOFT TISSUES HEAD AND NECK, THYROID CLINICAL INDICATION: nodule TECHNIQUE: Greyscale and color doppler imaging was performed of the thyroid gland. COMPARISON: 11/01/2022. FINDINGS: LEFT THYROID LOBE: Left lobe of thyroid is heterogeneous. Predominantly cystic nodule measuring 0.8 x 0.6 x 0.7 cm inferiorly in the left lobe of the thyroid was not definitely seen on the prior examination. It is mixed cystic and solid, isoechoic, wider than tall, smooth, without echogenic foci. The left lobe of thyroid lobe measures 5.0 x 1.7 x 2.8 cm. RIGHT THYROID LOBE: Right lobe of the thyroid is heterogeneous. Complex solid and cystic nodule measuring 1.1 x 1.0 x 0.9 cm in the right lobe is isoechoic, wider than tall, smooth, without echogenic foci. This is similar to the prior exam. The right lobe of thyroid lobe measures 5.8 x 1.7 x 2.4 cm. No change in the small calcification measuring about 2 mm in the right lobe of the thyroid. ISTHMUS: Unremarkable. No thyroid nodules are present. The isthmus measures 0.5 cm in thickness. US/Thyroid IMPRESSION: 1. No change in the small calcification measuring about 2 mm in the right lobe of the thyroid. This nodule is mildly suspicious but no FNA or follow-up is necessary given the small size of this nodule. 2. Complex solid and cystic nodule measuring 1.1 x 1.0 x 0.9 cm in the right lobe is isoechoic, wider than tall, smooth, without echogenic foci. This is similar to the prior exam. TI-RADS points: 3. TI-RADS category: TR3. This nodule is mildly suspicious but no FNA or follow-up is necessary given the small size of this nodule. 3. Predominantly cystic nodule measuring 0.8 x 0.6 x 0.7 cm inferiorly in the left lobe of the thyroid was not definitely seen on the prior examination. It is mixed cystic and solid, isoechoic, wider than tall, smooth, without echogenic foci. TI-RADS points: 2. TI-RADS category: TR2. This nodule is not suspicious and no FNA or follow-up is necessary. Electronically Signed: Ralph Echols MD at 3:50 EDT ,
== END | disposition home or self-care (01) ==
LOC: US 12:32
PROVIDERS: PCP Family Medicine; Referring Provider Family Medicine; Visit Provider Family Medicine
DX: E04.1 Nontoxic single thyroid nodule (principal)
CPT/HCPCS: 76536

== ENCOUNTER → 2024-06-19 | Outpatient (CLI) | payer MEDICARE, OTHER, SELFPAY ==
[2024-06-19 17:07] LABS: Absolute Lymphocyte Count 2.24 X10^3/uL (0.83-4.51); Absolute Neutrophil Count 5.2 X10^3/uL (2.0-7.7); Basophil# 0.05 X10^3/uL; Basophil% 0.6 % (0-1); Eosinophil# 0.23 X10^3/uL; Eosinophils% 2.8 % (0-5); Hematocrit 44.1 % (40-54); Hemoglobin 14.6 g/dL (13.0-16.5); Lymphocyte # 2.24 X10^3/ul (0.83-4.51); Lymphocyte % 27.3 % (19-41); Mean Corp Hgb Conc 33.1 g/dL (32-36); Mean Corpuscular Hgb 27.7 pg (27.0-32.0); Mean Corpuscular Volume 83.7 fL (80-94); Mean Platelet Vol. 10.6 fl (6.2-12.0); Monocyte# 0.47 X10^3/uL; Monocyte% 5.7 % (0-10); NRBC Flagged by Analyzer 0 % (0-5); Neutrophil # 5.19 X10^3/uL (2.7-7.7); Neutrophil % 63.1 % (47-70); Platelet Count 206 K/mm3 (150-450); RBC Distribution Width CV 13.5 % (11.6-14.6); RBC Distribution Width SD 41.1 fl (35.1-43.9); Red Blood Count 5.27 M/mm3 (4.6-6.2); White Blood Count 8.2 K/mm3 (4.4-11.0)
[2024-06-19 17:18] LABS: ALB/GLOB Ratio 0.8 RATIO (0.9-2.4); AST(SGOT) 32 U/L (15-37); Alanine Aminotransfer ALT/SGPT 29 U/L (16-61); Albumin, Serum 3.2 g/dL (3.2-5.0); Alkaline Phosphatase 136 U/L (45-117); Anion Gap 8 (5-15); BUN 15 mg/dL (7-18); BUN/Creat Ratio 16.8 RATIO (10-20); Calcium,Total 9.3 mg/dL (8.5-10.1); Chloride 101 mmol/L (98-107); Cholesterol 179 mg/dL (200); EST Glomerular Filtration Rate 89 mL/min (>60); Est Glom Filt Rate - Afr Amer 108 mL/min (>60); Globulin 4.2 g/dL (2.2-4.2); Glucose 367 mg/dL (74-106); High Density Lipoprotein 36 mg/dL; Magnesium 1.7 mg/dL (1.6-2.6); Protein, Total 7.4 g/dL (6.4-8.2); Sodium Level 135 mmol/L (136-145); Triglycerides 387 mg/dL; Very Low Density Lipoprotein 77 mg/dL (5-40)
[2024-06-19 17:55] LABS: Microalbumin:Creatinine Ratio 747.2 mg/g CRE (<30 mg/g CRE)
[2024-06-19 18:21] LABS: Hemoglobin A1c 10.4 % (3.8-5.6)
== END | disposition home or self-care (01) ==
LOC: MFPLAB 14:54
PROVIDERS: PCP Family Medicine; Referring Provider Family Medicine; Visit Provider Family Medicine
DX: E11.8 Type 2 diabetes mellitus with unspecified complications (principal); I48.91 Unspecified atrial fibrillation
CPT/HCPCS: 36415; 80053; 80061; 82043; 82570; 83036; 83735; 85025

== ENCOUNTER → 2024-08-02 | Outpatient (CLI) | payer MEDICARE, OTHER, SELFPAY ==
[2024-08-02 17:56] LABS: PSA,Total - Annual Screen 3.29 ng/mL (0.00-4.00)
== END | disposition home or self-care (01) ==
LOC: MFPLAB 15:04
PROVIDERS: PCP Family Medicine; Referring Provider Family Medicine; Visit Provider Family Medicine
DX: Z12.5 Encounter for screening for malignant neoplasm of prostate (principal)
CPT/HCPCS: 36415; 84153; G0103

== ENCOUNTER → 2024-08-22 | Outpatient (CLI) | payer MEDICARE, OTHER, SELFPAY | END | disposition home or self-care (01) | LOC: LABSPEC 16:52 | PROVIDERS: PCP Family Medicine; Visit Provider Podiatrist | DX: L97.512 Non-pressure chronic ulcer of other part of right foot with fat layer exposed (principal) | CPT/HCPCS: 87015; 87070; 87077; 87116; 87186; 87205; 87206 ==

== ENCOUNTER → 2024-09-28 | Outpatient (CLI) | payer MEDICARE, OTHER, SELFPAY ==
[2024-09-28 17:43] LABS: Absolute Lymphocyte Count 2.49 X10^3/uL (0.83-4.51); Absolute Neutrophil Count 6.6 X10^3/uL (2.0-7.7); Basophil# 0.05 X10^3/uL; Basophil% 0.5 % (0-1); Eosinophil# 0.28 X10^3/uL; Eosinophils% 2.8 % (0-5); Hemoglobin 14.2 g/dL (13.0-16.5); Lymphocyte # 2.49 X10^3/ul (0.83-4.51); Lymphocyte % 24.7 % (19-41); Mean Corpuscular Hgb 27.5 pg (27.0-32.0); Mean Corpuscular Volume 83.2 fL (80-94); Mean Platelet Vol. 10.3 fl (6.2-12.0); Monocyte# 0.61 X10^3/uL; NRBC Flagged by Analyzer 0 % (0-5); Neutrophil # 6.62 X10^3/uL (2.7-7.7); Neutrophil % 65.6 % (47-70); Platelet Count 252 K/mm3 (150-450); RBC Distribution Width CV 13.2 % (11.6-14.6); Red Blood Count 5.17 M/mm3 (4.6-6.2); White Blood Count 10.1 K/mm3 (4.4-11.0)
[2024-09-28 18:26] LABS: ALB/GLOB Ratio 0.9 RATIO (0.9-2.4); AST(SGOT) 23 U/L (<=37); Alanine Aminotransfer ALT/SGPT 15 U/L (<=46); Albumin, Serum 3.6 g/dL (3.4-4.8); Alkaline Phosphatase 133 U/L (40-129); Anion Gap 16 (5-15); BUN 14 mg/dL (4-19); BUN/Creat Ratio 17.5 RATIO (10-20); Calcium,Total 9.4 mg/dL (7.6-11.0); Carbon Dioxide 23.6 mmol/L (21.0-32.0); Chloride 97 mmol/L (98-108); Creatinine, Serum 0.78 mg/dL (0.70-1.20); EST Glomerular Filtration Rate 97 (>60); Glucose 361 mg/dL (70-99); Potassium 4.3 mmol/L (3.3-5.1); Protein, Total 7.6 g/dL (5.9-8.4); Sodium Level 136 mmol/L (133-145); Total Bilirubin 0.45 mg/dL (0.00-1.30)
[2024-09-28 18:29] LABS: Hemoglobin A1c 11.1 % (<=5.6)
[2024-09-30 08:07] LABS: Prealbumin 15 mg/dL (10-36)
== END | disposition home or self-care (01) ==
LOC: MTLAB 14:26
PROVIDERS: PCP Family Medicine; Referring Provider Podiatrist; Visit Provider Podiatrist
DX: E11.621 Type 2 diabetes mellitus with foot ulcer (principal); L97.419 Non-pressure chronic ulcer of right heel and midfoot with unspecified severity
CPT/HCPCS: 36415; 80053; 83036; 84134; 85025

== ENCOUNTER 2024-10-09 10:30 | Outpatient (RCR) | payer MEDICARE, OTHER, SELFPAY ==
[2024-09-25 09:42] VITALS: BP 173/65; PULSE 75; RESP 18; TEMP 36.2; BMI 55.2
--- NOTE | 2024-09-25 10:21 | HP.PCM_ITS ---
History of Present Illness Date of Service: 09/25/24 Chief Complaint: Right heel wound History of Wound: Patient has chronic wound to right heel in setting of diabetic neuropathy, poorly controlled diabetes, peripheral neuropathy, peripheral arterial disease, iron deficiency, chronic chronic anticoagulation. Patient denies constitutional symptoms. Patient ambulates in surgical shoe with heel offloading. 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 Patient has no other complaints. FORMERLY [facility], 1928–1983 Medical History Chronic cellulitis Streptococcal bacteremia Hyperglycemia due to diabetes mellitus Chronic anticoagulation Fall Wears glasses Depression Anxiety Alcohol use History of ulceration Ambulates with cane Insulin dependent diabetes mellitus Arthritis Low iron Dietary restriction Former smoker Shortness of breath on exertion Leg cramps History of pain when walking History of edema Cardiology follow-up encounter History of echocardiogram Blackout Restless legs HTN (hypertension) Diabetes BiPAP (biphasic positive airway pressure) dependence Atrial fibrillation Hyperlipidemia Thyroid nodule Lower extremity neuropathy Essential (primary) hypertension Type 2 diabetes mellitus Morbid obesity Obstructive sleep apnea New onset atrial fibrillation (10/01/20) Pickwickian syndrome Bilateral leg edema Home Medications ?Medication ?Instructions ?Recorded ?Last Taken ?Type losartan 100 mg tablet 100 mg PO QHS Check with supriya souza 04/04/14 05/20/23 History doctor metformin 1,000 mg tablet 1,000 mg PO BIDCM diabetes 1 05/21/23 History amlodipine 5 mg tablet 5 mg PO QHS BP 10/01/20 12/0 07/12 History pjvoeoli-nh-zrejl 300 mcg-K 60 1 tablet PO DAILY suppl cheryl 10/01/20 05/21/23 History mcg-lycop 600 mcg-lutein 300 mcg tablet metoprolol succinate 100 mg 100 mg PO QHS Check with winnie colón 12/03/20 05/20/23 History tablet,extended release 24 hr doctor (Toprol XL) insulin glargine U-300 conc 300 25 unit subcut QHS sudheer zay 09/27/22 05/20/23 History unit/mL (3 mL) subcutaneous pen (Toujeo Max U-300 SoloStar) apixaban 5 mg tablet 5 mg PO BID blood thinner 05/21/23 History gabapentin 800 mg tablet 800 mg PO .QID neuropathy 05/21/23 History pen needle, diabetic 32 gauge x #1,200 ea 05/23/23 Unk nown Rx acetaminophen 500 mg tablet 1,000 mg PO TID 07/11/23 U nknown History (Tylenol Extra Strength) aspirin 325 mg tablet 325 mg PO DAILY 07/11/23 Unk nown History blood sugar diagnostic (OneTouch #10 ea 07/11/23 Unkno wn History Ultra Test strips) Allergy/AdvReac Type Severity Reaction Status Date / Time ampicillin Allergy Unknown Verified 07/11/23 11:11 peanut Allergy NEEDS Verified 07/11/23 11:11 FOLLOW-UP Penicillins Allergy Unknown Verified 07/11/23 11:11 Family History Mother Heart disease Diabetes Father Heart disease Cancer Surgical History History of amputation of toe History of wisdom tooth extraction Social History Smoking Status: Never smoker how long ago did patient quit smokin alcohol intake: never substance use type: does not use caffeine: Yes ROS Constitutional Constitutional: Denies fever(s), frequent falls or headache(s) Eyes Eyes: Denies change in vision, foreign body or halo effect ENT HEENT: Denies ear pain, epistaxis or nasal congestion Cardiovascular Cardiovascular: Denies bluish discoloration of hand/feet, chest pain or dyspnea on exertion Respiratory/Chest Respiratory/Chest: Denies difficulty clearing secretions, dry cough or non-rest sleep EDS Gastrointestinal Gastrointestinal: Denies chewing difficulty, coffee ground emesis or hematochezia Vital Signs Vital Signs Vital Signs: 09/25/24 09:42 Temperature 97.2 F L Temperature Source Temporal Pulse Rate 75 Respiratory Rate 18 Blood Pressure 173/65 H Blood Pressure Mean 101 Blood Pressure Source Monitor Blood Pressure Position Semi-Fowlers Blood Pressure Location Left Arm Weight Weight: 164.654 kg Body Mass Index (BMI) 55.2 Physical Exam Narrative Vascular: Dorsalis pedis posterior tibial pulses palpable 1 out of 4 to bilateral lower extremity compartments. Atrophic skin changes noted. Varicosities noted diffusely throughout the legs. +1 pitting edema noted bilaterally. Neurologic: Light touch protective sensation absent to bilateral feet. Dermatologic: Full-thickness wound noted to the plantar medial right heel with necrotic base predebridement postdebridement demonstrated excessive bleeding and stable granular base. Wound extends down to muscle. wound probes down to level of calcaneus. No deep undermining noted. No acute signs of infection noted today. Musculoskeletal: No gross deformity noted. Const alert and oriented x3 Debridement Note Debridement Note Post-Debridement Measurements and Additional Note: Post-Debridement Measurements/Treatment - Nurse 1 - General Ulcer Assessment Start: 09/25/24 09:37 Freq: Status: Active Protocol: [email or web address] Activity Type Activity Date Activity User E-sign Co-sign Detail Recorded Client Recorded Date Recorded By Document 09/25/24 09:42 SHANIA [id number] 09/25/24 09:52 RB 09/25/24 09:42 - Today's Visit Information Type of service Initial Visit Arrival Mode Wheelchair Transfer Assistance Manual Patient Identification Verified (Name & Yes ) Height and Weight Height 5 ft 8 in Weight 164.654 kg Weight in Pounds 363.0 lbs Body Mass Index (BMI) 55.2 BMI Classification Obese Vital Signs Temperature (97.8 F-99.1 F) 97.2 F L Temperature Source Temporal Pulse Rate (60-100) 75 Pulse Location Monitor Respiratory Rate (12-18) 18 Respiratory rate source Observation Blood Pressure (90/60-120/80) 173/65 H Blood Pressure Mean 101 Source Monitor Position Semi-Fowlers Blood Pressure Location Left Arm History Since Last Visit- (Skip if this is Patient's initial visit) Have you changed medications since your No last visit? Any new allergies or adverse reactions No Had a fall/change in ADL's that may No increase risk of falls Signs or symptoms of abuse and/or No neglect since last visit Have you been in the hospital since your No last visit? Has dressing in place as prescribed Yes Has compression in place as prescribed Yes Has offloadiing in place as prescribed Yes Experienced any changes in pain level or No management Left Footwear Regular Shoe Right Footwear Surgical Shoe with pressure relief insole Pain Scale: 0-10 Numeric Is Patient Pain Free? Yes Lower Extremity Assessment/ Foot Assessment/ Toe Nail Assessment Right -Posterior Tibial Palpable Yes -Dorsalis Pedis Palpable Yes -Extremity Color Hyperpigmented -Hair Growth on Legs No -Hair Growth on Toes No -Temperature of Extremity Warm -Capillary Refill Less than 3 Seconds -Dependent Rubor No -Blanched when Elevated No -Lipodermatosclerosis No -Other Deformity No -Prior Foot Ulcer No -Charcot Joint No -Prior Amputation No -Thick Yes -Discolored Yes -Deformed Yes -Improper Length & Hygeine No Left -Posterior Tibial Palpable Yes -Dorsalis Pedis Palpable Yes -Extremity Color Hyperpigmented -Hair Growth on Legs No -Hair Growth on Toes No -Temperature of Extremity Warm -Capillary Refill Less than 3 Seconds -Dependent Rubor No -Blanched when Elevated No -Lipodermatosclerosis No -Other Deformity No -Prior Foot Ulcer No -Charcot Joint No -Prior Amputation No -Thick Yes -Discolored Yes -Deformed Yes -Improper Length & Hygeine No Neuropathy Assessment Feet - Top Side and Bottom <Entered> (a) Communication Assessment Preferred language [place] 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 Shear 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 Required No Able to Read Yes Able to Write Yes Communication Tools None Caregiver Communication Skills No Impairment Impairment Right Hearing Abillity Normal Left Hearing Abillity Normal Visual Assistive Devices Glasses Teaching Assessment Preferences Verbal,Written, Demonstration Barriers to Learning None Readiness To Learn Good Willingness to Engage in Self Management Med Activies Readiness to Engage in Self Management Med Activities Anxiety Level Calm Cooperation Cooperative Perception Coherent Interest in Health Problem Asks Questions Education Importance Acknowledges Need Does Patient Smoke tobacco or other No substances Smoking Status Never smoker Functional Assessment Recent Decline in Ability to Perform Denies Any Declines Culture/Oriental Orthodox/Automation Tester Cultural/Oriental Orthodox Needs that may affect No Treatment Plan Would you allow our hospital accounting support specialist to No meet you for the purpose of spiritual/ emotional support? Automation Tester to contact place of restorationist No Teaching: Wound Center *Welcome to the Wound Center -Person Taught Patient -Teaching Method Discussion, Demonstration -Response to teaching Verbalize Understanding (a) 1 - - throughout WC - Nurse 1 - General Ulcer Measurement Start: 09/25/24 09:37 Freq: Status: Active Protocol: Activity Type Activity Date Activity User E-sign Co-sign Detail Recorded Client Recorded Date Recorded By Document 09/25/24 09:42 RB [id number] 09/25/24 09:52 RB 09/25/24 09:42 Wound Center Nurse 1 4.R heel medial -Combined with other wound No -Current Size (cm) - Length 4 -Current Size (cm) - Width 2.9 -Current Size (cm) - Depth 2 -Total Square Cm 11.6 -Photo Taken Yes -Tunneling No -Undermining/Tunneling No -Circular Undermining No -Exudate Amt Large -Exudate Type Serosanguineous -Wound Margin Thickened & Rolled Under -Granulation Amt Small (1-33%) -Granulation Quality [place] -Slough/Fibrin Yes -Necrosis Amt Large (67-100%) -Necrotic Tissue Type Eschar -Structure Exposed N/A -Texture (Lesvia-wound Skin Appearance) Assessed,Callus -Moisture (Lesvia-wound Skin Appearance) Assessed -Color (Lesvia-wound Skin Appearance) Assessed -Temperature (Lesvia-wound Skin No Abnormality Appearance) (Pt Warm) -Tenderness on Palpation (Lesvia-wound No Skin Appearance) -Ulcer Cleansing Wound Cleanser -Foul Odor after Cleansing No -Anesthetic Used 5% Lidocaine Gel Lower Limb Edema Present Yes Right Calf (cm) 50.5 Right Ankle (cm) 28.2 Left Calf (cm) 47.5 Left Ankle (cm) 28.2 Assessment/Plan Assessment/Plan (1) Non-pressure chronic ulcer of other part of right foot with fat layer exposed: CODE(S): L97.512 - Non-pressure chronic ulcer of other part of right foot with fat layer exposed PLAN: Exam performed. Patient has chronic nonhealing ulceration right lower extremity. Discussed possible hospital admission for SNF placement and wound VAC application with operative debridement patient wishes to wait till next week Current we will plan for daily dressing changes consisting of Dakin's wet to dry. Right heel wound was excisionally debrided down to including level of muscle of all nonviable tissue using combination of pickups and a #15 blade. Topical anesthesia was used. Hemostasis obtained with Surgifoam, electrocautery. Pre and postdebridement measurements document nursing notes. Patient tolerated procedure well. Patient will follow-up in 1 week continue offloading with surgical shoe to right foot Will consider hospital admission at that time. Patient is poorly controlled diabetic discussed risk of this risk for proximal amputation. Will consider nutritional consult for protein supplementation and better blood glucose control. Will consider vascular workup (2) Type 2 diabetes mellitus with diabetic polyneuropathy: CODE(S): E11.42 - Type 2 diabetes mellitus with diabetic polyneuropathy QUALIFIERS: Diabetes mellitus detention insulin use: unspecified long term care phlebotomist insulin use status Qualified Code(s): E11.42 - Type 2 diabetes bridget itus with diabetic polyneuropathy (3) Other specified peripheral vascular diseases: CODE(S): I73.89 - Other specified peripheral vascular diseases (4) 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 layer exposed: CODE(S): L97.522 - Non-pressure chronic ulcer of other part of left foot with fat layer exposed (5) Iron deficiency anemia: CODE(S): D50.9 - Iron deficiency anemia, unspecified
--- NOTE | 2024-09-26 08:36 | WC ---
PHOTO 09/26/24 RIGHT MEDIAL HEEL
[2024-10-02 10:19] VITALS: BP 168/75; PULSE 78; RESP 14; TEMP 35.8; BMI 55.2
--- NOTE | 2024-10-02 11:05 | PN.PCM_ITS ---
History of Present Illness Date of Service: 10/02/24 Chief Complaint: Right heel wound History of Wound: Patient has chronic wound to right heel in setting of diabetic neuropathy, poorly controlled diabetes, peripheral neuropathy, peripheral arterial disease, iron deficiency, chronic chronic anticoagulation. Patient denies constitutional symptoms. Patient ambulates in surgical shoe with heel offloading. 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 Patient has no other complaints. Objective Data Objective Data Vital Signs: Vital Signs Temp Pulse Resp BP 96.5 F L 78 14 168/75 H 10/02/24 10:19 10/02/24 10:19 10/02/24 10:19 10/02/24 10:19 Weight: 164.654 kg Body Mass Index (BMI) 55.2 Physical Exam Narrative Vascular: Dorsalis pedis posterior tibial pulses palpable 1 out of 4 to bilateral lower extremity compartments. Atrophic skin changes noted. Varicosities noted diffusely throughout the legs. +1 pitting edema noted bilaterally. Neurologic: Light touch protective sensation absent to bilateral feet. Dermatologic: Full-thickness wound noted to the plantar medial right heel with necrotic base predebridement postdebridement demonstrated excessive bleeding and stable granular base. Wound extends down to muscle. wound probes down to level of calcaneus. No deep undermining noted. No acute signs of infection noted today. Musculoskeletal: No gross deformity noted. 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 ) Arrival Mode Wheelchair Wheelchair Transfer Assistance Manual None Patient Identification Verified (Name & Yes Yes ) Patient Requires Transmission-Based No Precautions Height and Weight Height 5 ft 8 in Weight 164.654 kg Weight in Pounds 363.0 lbs Body Mass Index (BMI) 55.2 55.2 BMI Classification Obese Obese Vital Signs Temperature (97.8 F-99.1 F) 97.2 F L 96.5 F L Temperature Source Temporal Temporal Pulse Rate (60-100) 75 78 Pulse Location Monitor Monitor Respiratory Rate (12-18) 18 14 Respiratory rate source Observation Observation Blood Pressure (90/60-120/80) 173/65 H 168/75 H Blood Pressure Mean (mm Hg) 101 106 Source Monitor Monitor Position Semi-Fowlers Sitting Blood Pressure Location Left Arm Right Arm History Since Last Visit- (Skip if this is Patient's initial visit) Have you changed medications since your No No last visit? Any new allergies or adverse reactions No No Had a fall/change in ADL's that may No No increase risk of falls Signs or symptoms of abuse and/or No No neglect since last visit Have you been in the hospital since your No No last visit? Has dressing in place as prescribed Yes Yes Has compression in place as prescribed Yes N/A Has offloadiing in place as prescribed Yes No Experienced any changes in pain level or No No management Left Footwear Regular Shoe Right Footwear Surgical Shoe with pressure relief insole Pain Scale: 0-10 Numeric Is Patient Pain Free? Yes Yes Lower Extremity Assessment/ Foot Assessment/ Toe Nail Assessment Right -Posterior Tibial Palpable Yes -Dorsalis Pedis Palpable Yes -Extremity Color Hyperpigmented -Hair Growth on Legs No -Hair Growth on Toes No -Temperature of Extremity Warm -Capillary Refill Less than 3 Seconds -Dependent Rubor No -Blanched when Elevated No -Lipodermatosclerosis No -Other Deformity No -Prior Foot Ulcer No -Charcot Joint No -Prior Amputation No -Thick Yes -Discolored Yes -Deformed Yes -Improper Length & Hygeine No Left -Posterior Tibial Palpable Yes -Dorsalis Pedis Palpable Yes -Extremity Color Hyperpigmented -Hair Growth on Legs No -Hair Growth on Toes No -Temperature of Extremity Warm -Capillary Refill Less than 3 Seconds -Dependent Rubor No -Blanched when Elevated No -Lipodermatosclerosis No -Other Deformity No -Prior Foot Ulcer No -Charcot Joint No -Prior Amputation No -Thick Yes -Discolored Yes -Deformed Yes -Improper Length & Hygeine No Neuropathy Assessment Feet - Top Side and Bottom <Entered> (a) Communication Assessment Preferred language Bangl[place]hi 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 Able to Read Yes Able to Write Yes Communication Tools None Caregiver Communication Skills No Impairment Impairment Right Hearing Abillity Normal Left Hearing Abillity Normal Visual Assistive Devices Glasses Teaching Assessment Preferences Verbal,Written, Demonstration Barriers to Learning None Readiness To Learn Good Willingness to Engage in Self Management Med Activies Readiness to Engage in Self Management Med Activities Anxiety Level Calm Cooperation Cooperative Perception Coherent Interest in Health Problem Asks Questions Education Importance Acknowledges Need Does Patient Smoke tobacco or other No substances Smoking Status Never smoker Functional Assessment Recent Decline in Ability to Perform Denies Any Declines 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 Aquatic Laborer to contact place of anabaptist No Teaching: Wound Center *Welcome to the Wound Center -Person Taught Patient -Teaching Method Discussion, Demonstration -Response to teaching Verbalize Understanding (a) 1 - - throughout WC - Nurse 1 - General Ulcer Measurement Start: 09/25/24 09:37 Freq: Status: Active Protocol: Activity Type Activity Date Activity User E-sign Co-sign Detail Recorded Client Recorded Date Recorded By Document 09/25/24 09:42 RB [id number] 09/25/24 09:52 RB Document 10/02/24 10:19 ML [id number] 10/02/24 10:25 ML 09/25/24 10/02/24 09:42 10:19 Wound Center Nurse 1 4.R heel medial -Combined with other wound No -Current Size (cm) - Length 4 4.2 -Current Size (cm) - Width 2.9 2.5 -Current Size (cm) - Depth 2 1.3 -Total Square Cm 11.6 10.50 -Photo Taken Yes -Tunneling No -Undermining/Tunneling No -Circular Undermining No -Exudate Amt Large Medium -Exudate Type Serosanguineous Serosanguineous -Wound Margin Thickened & Thickened & Rolled Under Rolled Under -Granulation Amt Small (1-33%) Small (1-33%) -Granulation [place] -Slough/Fibrin Yes Yes -Necrosis Amt Large (67-100%) Medium (34-66%) -Necrotic Tissue Type Eschar Eschar -Structure Exposed N/A -Texture (Lesvia-wound Skin Appearance) Assessed,Callus Assessed,Not Assessed -Moisture (Lesvia-wound Skin Appearance) Assessed Maceration -Color (Lesvia-wound Skin Appearance) Assessed Assessed -Temperature (Lesvia-wound Skin No Abnormality No Abnormality Appearance) (Pt Warm) (Pt Warm) -Tenderness on Palpation (Lesvia-wound No Skin Appearance) -Ulcer Cleansing Wound Cleanser -Foul Odor after Cleansing No -Anesthetic Used 5% Lidocaine 5% Lidocaine Gel Gel Lower Limb Edema Present Yes Right Calf (cm) 50.5 51.4 Right Ankle (cm) 28.2 28.2 Left Calf (cm) 47.5 Left Ankle (cm) 28.2 WC - Nurse 2 - General Ulcer CM Notes Start: 09/25/24 09:37 Freq: Status: Active Protocol: Activity Type Activity Date Activity User E-sign Co-sign Detail Recorded Client Recorded Date Recorded By Document 09/25/24 10:48 [id number] 09/25/24 10:49 Document 10/02/24 10:45 [id number] 10/02/24 10:50 Edit Result 10/02/24 10:45 (1) [id number] 10/02/24 10:51 (1) 4.R heel medial - Post Debridement (cm) - Length => 4.2 - Post Debridement (cm) - Width => 2.5 - Post Debridement (cm) - Depth => 2.0 - Total Square (Post) (cm) => 10.50 - Area of Debridement (cm) - Length => 4.2 - Area of Debridement (cm) - Width => 2.5 - Total Square (Area) (cm) => 10.50 09/25/24 10/02/24 10:48 10:45 Wound Center Nurse 2 4.R heel medial -Time 10:48 10:50 -Correct Patient Yes Yes -Correct Side, Site, Position Yes Yes -Correct Procedure Yes Yes -Procedure Performed Yes Yes -Type of Procedure Debridement Debridement -Clinical Debridement Muscle / Fascia Muscle / Fascia -Tissue Removed Muscle Muscle -Post Debridement (cm) - Length 3.4 4.2 -Post Debridement (cm) - Width 4 2.5 -Post Debridement (cm) - Depth 2.0 2.0 -Total Square (Post) (cm) 13.6 10.50 -Area of Debridement (cm) - Length 3.4 4.2 -Area of Debridement (cm) - Width 4.0 2.5 -Total Square (Area) (cm) 13.60 10.50 -Tunneling No No -Undermining/Tunneling No No -Circular Undermining No No -Wound/Ulcer Outcome Not Healed Not Healed -Ulcer Cleansing Rinsed/ Rinsed/ Irrigated with Irrigated with Saline Saline -Foul Odor after Cleansing No No -Bioengineered Tissue No No -Bleeding Controlled with Pressure, Pressure SURGIFOAM -Treatment Response Procedure Procedure Tolerated Well Tolerated Well -Offloading Yes Yes -Type of Offloading Surgical Shoe Surgical Shoe -Debridement - Muscle / Fascia, 1st Yes Yes 20sq cm Pain Scale: 0-10 Numeric Is Patient Pain Free? Yes Yes - Nurse 3 - General Ulcer D/C NN Start: 09/25/24 09:37 Freq: Status: Active Protocol: Activity Type Activity Date Activity User E-sign Co-sign Detail Recorded Client Recorded Date Recorded By Document 09/25/24 11:19 RB [id number] 09/25/24 11:21 RB 09/25/24 11:19 Wound Care Center Nurse 3 4.R heel medial -Other Dressing surgifoam left in place as ordered/ABD kerlix -Primary Dressing Covered/Secured with Dry Gauze,Dry Gauze & Roll Gauze,Secured with Tape RLE -Other kelin Treatment Response Procedure Tolerated Well Pain Scale: 0-10 Numeric Is Patient Pain Free? Yes - Visit Discharge Discharge Condition Stable Ambulatory Status Wheelchair Transportation Private Auto Medication Reconcilliation completed & No provided to patient/care provider Clinical Summary of Care Provided Yes Assessment/Plan Assessment/Plan (1) Non-pressure chronic ulcer of other part of right foot with fat layer exposed: CODE(S): L97.512 - Non-pressure chronic ulcer of other part of right foot with fat layer exposed PLAN: Exam performed. Patient has chronic nonhealing ulceration right lower extremity. Discussed possible hospital admission for SNF placement and wound VAC application with operative debridement patient refusing Current we will plan for daily dressing changes consisting of Dakin's wet to dry. Right heel wound was excisionally debrided down to including level of muscle of all nonviable tissue using combination of pickups and a #15 blade. Topical anesthesia was used. Hemostasis obtained with Surgifoam, electrocautery. Pre and postdebridement measurements document nursing notes. Patient tolerated procedure well. Patient will follow-up in 1 week continue offloading with surgical shoe to right foot Patient is poorly controlled diabetic discussed risk of this risk for proximal amputation. 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
[2024-10-09 10:32] VITALS: BP 160/71; PULSE 80; RESP 16; TEMP 36.4; BMI 55.2
[2024-10-10 14:47] LABS: Bedside Glucose 287 mg/dL (74-106)
--- NOTE | 2024-10-11 09:23 | WC ---
PHOTO 10/09/24 RIGHT PLANTAR HEEL
== END 2024-10-17 23:59 | disposition home or self-care (01) ==
LOC: WC 10:30
PROVIDERS: PCP Family Medicine; Referring Provider Podiatrist; Visit Provider Podiatrist
DX: E11.621 Type 2 diabetes mellitus with foot ulcer (principal); L97.512 Non-pressure chronic ulcer of other part of right foot with fat layer exposed; L97.522 Non-pressure chronic ulcer of other part of left foot with fat layer exposed; E11.42 Type 2 diabetes mellitus with diabetic polyneuropathy; Z79.4 Long term (current) use of insulin; E11.51 Type 2 diabetes mellitus with diabetic peripheral angiopathy without gangrene; I10 Essential (primary) hypertension; Z79.84 Long term (current) use of oral hypoglycemic drugs; E78.5 Hyperlipidemia, unspecified; Z79.82 Long term (current) use of aspirin; D50.9 Iron deficiency anemia, unspecified; Z79.01 Long term (current) use of anticoagulants; Z79.899 Other long term (current) drug therapy
CPT/HCPCS: 11043; 82962; 99213; 99214; G0463

== ENCOUNTER 2024-10-09 12:45 | Inpatient (IN) | payer MEDICARE, OTHER, SELFPAY ==
[2024-10-09] VITALS (11 sets, daily range): BP systolic 133–199; BP diastolic 49–98; PULSE 79–100; RESP 14–21; TEMP 36.6–37.6; O2SAT 94–98; BMI 53.9; BMI 52.7
--- NOTE | 2024-10-09 13:41 | EDS_ITS ---
HPI History of Present Illness Chief Complaint: Wound Informant: patient Narrative Narrative: Diabetes with neuropathy worsening right heel wound over 4 to 5 weeks. Followed by wound care. He is on Augmentin. Seen wound clinic today was sent in for admission with IV antibiotics and surgery. History of paroxysmal A-fib on Eliquis. Denies fever states she is feeling fatigued. No pain due to neuropathy. [facility] Medical History Chronic cellulitis Streptococcal bacteremia Hyperglycemia due to diabetes mellitus Chronic anticoagulation Fall Wears glasses Depression Anxiety Alcohol use History of ulceration Ambulates with cane Insulin dependent diabetes mellitus Arthritis Low iron Dietary restriction Former smoker Shortness of breath on exertion Leg cramps History of pain when walking History of edema Cardiology follow-up encounter History of echocardiogram Blackout Restless legs HTN (hypertension) Diabetes BiPAP (biphasic positive airway pressure) dependence Atrial fibrillation Hyperlipidemia Thyroid nodule Lower extremity neuropathy Essential (primary) hypertension Type 2 diabetes mellitus Morbid obesity Obstructive sleep apnea New onset atrial fibrillation (10/01/20) Pickwickian syndrome Bilateral leg edema Home Medications ?Medication ?Instructions ?Recorded ?Last Taken ?Type losartan 100 mg tablet 100 mg PO QHS Check with supriya souza 04/04/14 10/08/24 History doctor metformin 1,000 mg tablet 1,000 mg PO BIDCM diabetes 1 10/09/24 History amlodipine 5 mg tablet 5 mg PO QHS BP 10/01/2009/19 History wxvjnwqv-si-bibor 300 mcg-K 60 1 tablet PO DAILY suppl cheryl 10/01/20 05/21/23 History mcg-lycop 600 mcg-lutein 300 mcg tablet insulin glargine U-300 conc 300 25 unit subcut QHS sudheer zay 09/27/22 05/20/23 History unit/mL (3 mL) subcutaneous pen (Toujeo Max U-300 SoloStar) apixaban 5 mg tablet 5 mg PO BID blood thinner 10/09/24 History gabapentin 800 mg tablet 800 mg PO .COMPLEX PRN neuro paula 11/29/22 10/09/24 History pen needle, diabetic 32 gauge x #1,200 ea 05/23/23 Unk nown Rx acetaminophen 500 mg tablet 1,000 mg PO TID 01/22/24 U nknown History (Tylenol Extra Strength) blood sugar diagnostic (OneTouch #10 ea 07/11/23 Unkno wn History Ultra Test strips) amoxicillin 875 mg-potassium 1 tab PO BID 10/09/24 History clavulanate 125 mg tablet metoprolol tartrate 50 mg tablet 50 mg PO BID 10/09/24 10/09/24 History Allergy/AdvReac Type Severity Reaction Status Date / Time ampicillin Allergy Unknown Verified 10/09/24 12:49 peanut Allergy NEEDS Verified 10/09/24 12:49 FOLLOW-UP Penicillins Allergy Unknown Verified 10/09/24 12:49 Family History Mother Heart disease Diabetes Father Heart disease Cancer Surgical History History of amputation of toe History of wisdom tooth extraction Social History housing: apartment Smoking Status: Never smoker how long ago did patient quit smokin alcohol intake: never substance use type: does not use caffeine: Yes ROS ROS ED Constitutional Constitutional ED: Reports other Details: Fatigue ; Denies chills, fever(s) or sweats Cardiovascular Cardiovascular: Denies chest pain, leg edema, palpitations or racing heartbeat Respiratory/Chest Respiratory/Chest: Denies cough, dyspnea or dyspnea on exertion Gastrointestinal Gastrointestinal: Denies abdominal pain, diarrhea, nausea or vomiting Genitourinary Genitourinary ED: Denies dysuria, hematuria or urinary frequency Musculoskeletal Musculoskeletal: Denies back pain, extremity pain or neck pain Integumentary Reports wounds; Denies rash Neurologic Neurologic: Denies headache(s), paresthesias or weakness EXAM Physical Exam Const Vital Signs: 10/09/24 12:46 10/09/24 13:26 10/09/24 13:46 Temperature 97.8 F 97.9 F Temperature Source Oral Oral Pulse Rate 79 95 Respiratory Rate 14 20 H Blood Pressure 199/80 H 141/67 H Blood Pressure Mean 119 91 Pulse Ox 98 98 98 Oxygen Delivery Method Room Air Room Air Room Air Positive well nourished and well developed General Appearance ED: well developed and NAD HEENT Reports moist mucous membranes normocephalic and atraumatic Eyes General Eye ED: Yes normal appearance of both eyes Neck full ROM Chest Wall Chest: Negative for tenderness Resp normal respiratory effort and normal air movement Effort and Inspection: symmetric chest movement; Negative for respiratory distress Cardio regular rate and no murmurs Rhythm: abnormal rhythm Peripheral Pulses: pulses 2+ throughout GI normal to inspection, nondistended, normoactive bowel sounds and non-tender Palpation: Negative for guarding or rebound tenderness present Extremity Extremity Narrative: Full-thickness wound right medial aspect of the heel with packing approximately 4 cm in width.. There is erythema to the plantar aspect of the foot. General Extremety ED: Negative for edema General Extremity: Negative for edema Neuro oriented x3 and no sensory deficits noted Sensorium / Orientation: awake and alert Skin no rashes or lesions noted and no wounds MDM MDM MDM Narrative Medical decision making narrative: Interventions / MDM: Differential diagnosis: Diabetic right heel ulcer, osteomyelitis, chronic anticoagulation Diagnosis considered but do not suspect: N/A My EKG interpretation: N/A Imaging independently reviewed and interpreted by myself: 3 views right foot x- ray: External documents reviewed: Wound care clinic note with plans for admission and surgery with IV antibiotics. Test considered but not ordered:N/A ED course: Patient sent in for admission for diabetic right heel ulcer. Afebrile. Sepsis labs ordered with inflammatory markers. Right foot x-ray. Penicillin allergy along with ampicillin however he is on Augmentin. Will initiate meropenem and vancomycin. Re-evaluation: stable Disposition discussed with patient/family/significant other: Case discussed with consulting clinician: N/A This note was generated with StormMQ dictation software. It may contain incorrect words, spelling, and punctuation that were not noted in checking the note before signing. Lab Data Labs: Laboratory Results - last 24 hr 10/09/24 13:40 PT Cancelled INR Cancelled APTT Cancelled Radiography Diagnostic Testing: Clinical Impression(s) from Imaging Studies Chest X-Ray 10/09/24 13:45 IMPRESSION: Right basilar atelectasis or pneumonia. Reading Location: [facility] Foot X-Ray 10/09/24 13:45 IMPRESSION: No obvious radiographic evidence of osteomyelitis. However, if clinical suspicion remains high, further evaluation with 3 phase bone scan or MRI is recommended. Reading Location: [facility] Discharge Plan Triage Chief Complaint: Wound ED Provider: Logan Gifford Dx/Rx/DC Orders Prescriptions: No Action insulin glargine U-300 conc [Toujeo Max U-300 SoloStar] 300 unit/mL (3 mL) insulin pen 25 unit subcut QHS Patient Comments: pt states he is out of [facility] and unsure when he last had any (DME) OneTouch Ultra Test Strip See Rx Instructions .ROUTE .MEDSUPPLY Qty: 10 Patient Comments: Test blood sugar once daily. Rx Instructions: As directed acetaminophen [Tylenol Extra Strength] 500 mg tablet 1,000 mg PO TID metformin 1,000 MG tablet 1,000 mg PO BIDCM losartan 100 MG tablet 100 mg PO QHS amlodipine 5 MG tablet 5 mg PO QHS [id number]-cclnoz 1 EACH tablet 1 tablet PO DAILY apixaban 5 mg tablet 5 mg PO BID gabapentin 800 mg tablet 800 mg PO .COMPLEX PRN (Reason: neuropathy) Rx Instructions: 800 mg orally 3-4 times daily PRN; (DME) pen needle, diabetic 32 gauge x 5/32 needle See Rx Instructions .Route Qty: 1200 0RF Rx Instructions: As directed metoprolol tartrate 50 mg tablet 50 mg PO BID amoxicillin-pot clavulanate 875-125 mg tablet 1 tab PO BID Primary Care Provider: Bernabe Reese Referrals: Bernabe Reese MD [Primary Care Provider] - Print Language: Portuguese
--- NOTE | 2024-10-09 13:41 | ED.VIS.LOWEX ---
HPI History of Present Illness Chief Complaint: Wound Informant: patient Narrative Narrative: Diabetes with neuropathy worsening right heel wound over 4 to 5 weeks. Followed by wound care. He is on Augmentin. Seen wound clinic today was sent in for admission with IV antibiotics and surgery. History of paroxysmal A-fib on Eliquis. Denies fever states she is feeling fatigued. No pain due to neuropathy. History of chronic A-fib on Eliquis last dose this morning. [facility] Medical History Chronic cellulitis Streptococcal bacteremia Hyperglycemia due to diabetes mellitus Chronic anticoagulation Fall Wears glasses Depression Anxiety Alcohol use History of ulceration Ambulates with cane Insulin dependent diabetes mellitus Arthritis Low iron Dietary restriction Former smoker Shortness of breath on exertion Leg cramps History of pain when walking History of edema Cardiology follow-up encounter History of echocardiogram Blackout Restless legs HTN (hypertension) Diabetes BiPAP (biphasic positive airway pressure) dependence Atrial fibrillation Hyperlipidemia Thyroid nodule Lower extremity neuropathy Essential (primary) hypertension Type 2 diabetes mellitus Morbid obesity Obstructive sleep apnea New onset atrial fibrillation (10/01/20) Pickwickian syndrome Bilateral leg edema Home Medications ?Medication ?Instructions ?Recorded ?Last Taken ?Type losartan 100 mg tablet 100 mg PO QHS Check with primary 04/04/14 10/08/24 History doctor metformin 1,000 mg tablet 1,000 mg PO BIDCM diabetes 04/04/14 10/09/24 History amlodipine 5 mg tablet 5 mg PO QHS BP 10/01/20 10/08/24 History [id number]-ad-wwmhp 300 mcg-K 60 1 tablet PO DAILY supplemetn 10/01/20 05/21/23 History mcg-lycop 600 mcg-lutein 300 mcg tablet insulin glargine U-300 conc 300 25 unit subcut QHS diabetes 09/27/22 05/20/23 History unit/mL (3 mL) subcutaneous pen (Toujeo Max U-300 SoloStar) apixaban 5 mg tablet 5 mg PO BID blood thinner 11/29/22 10/09/24 History gabapentin 800 mg tablet 800 mg PO .COMPLEX PRN neuropathy 11/29/22 10/09/24 History pen needle, diabetic 32 gauge x #1,200 ea 05/23/23 Unknown Rx acetaminophen 500 mg tablet 1,000 mg PO TID 07/11/23 Unknown History (Tylenol Extra Strength) blood sugar diagnostic (OneTouch #10 ea 07/11/23 Unknown History Ultra Test strips) amoxicillin 875 mg-potassium 1 tab PO BID 10/09/24 10/09/24 History clavulanate 125 mg tablet metoprolol tartrate 50 mg tablet 50 mg PO BID 10/09/24 10/09/24 History Allergy/AdvReac Type Severity Reaction Status Date / Time ampicillin Allergy Unknown Verified 10/09/24 12:49 peanut Allergy NEEDS Verified 10/09/24 12:49 FOLLOW-UP Penicillins Allergy Unknown Verified 10/09/24 12:49 Family History Mother Heart disease Diabetes Father Heart disease Cancer Surgical History History of amputation of toe History of wisdom tooth extraction Social History housing: apartment Smoking Status: Never smoker how long ago did patient quit smokin alcohol intake: never substance use type: does not use caffeine: Yes ROS ROS ED Constitutional Constitutional ED: Reports other Details: Fatigue ; Denies chills, fever(s) or sweats Cardiovascular Cardiovascular: Denies chest pain, leg edema, palpitations or racing heartbeat Respiratory/Chest Respiratory/Chest: Denies cough, dyspnea or dyspnea on exertion Gastrointestinal Gastrointestinal: Denies abdominal pain, diarrhea, nausea or vomiting Genitourinary Genitourinary ED: Denies dysuria, hematuria or urinary frequency Musculoskeletal Musculoskeletal: Denies back pain, extremity pain or neck pain Integumentary Reports wounds; Denies rash Neurologic Neurologic: Denies headache(s), paresthesias or weakness EXAM Physical Exam Const Vital Signs: 10/09/24 12:46 10/09/24 13:26 10/09/24 13:46 Temperature 97.8 F 97.9 F Temperature Source Oral Oral Pulse Rate 79 95 Respiratory Rate 14 20 H Blood Pressure 199/80 H 141/67 H Blood Pressure Mean 119 91 Pulse Ox 98 98 98 Oxygen Delivery Method Room Air Room Air Room Air 10/09/24 14:00 10/09/24 15:00 10/09/24 15:17 Temperature 97.9 F 98.6 F 98.6 F Temperature Source Oral Oral Pulse Rate 95 95 95 Respiratory Rate 18 18 18 Blood Pressure 140/98 H 149/61 H 149/61 H Blood Pressure Mean 112 90 90 Pulse Ox 98 98 98 Oxygen Delivery Method Room Air Room Air Positive well nourished and well developed General Appearance ED: well developed and NAD HEENT Reports moist mucous membranes normocephalic and atraumatic Eyes General Eye ED: Yes normal appearance of both eyes Neck full ROM Chest Wall Chest: Negative for tenderness Resp normal respiratory effort and normal air movement Effort and Inspection: symmetric chest movement; Negative for respiratory distress Cardio regular rate and no murmurs Rhythm: abnormal rhythm Peripheral Pulses: pulses 2+ throughout GI normal to inspection, nondistended, normoactive bowel sounds and non-tender Palpation: Negative for guarding or rebound tenderness present Extremity Extremity Narrative: Full-thickness wound right medial aspect of the heel with packing approximately 4 cm in width. Malodorous. There is erythema to the plantar aspect of the foot. General Extremety ED: Negative for edema General Extremity: Negative for edema Neuro oriented x3 and no sensory deficits noted Sensorium / Orientation: awake and alert Skin no rashes or lesions noted and no wounds Sepsis Attestation Sepsis Attestation: Sepsis Ruled Out MDM MDM MDM Narrative Medical decision making narrative: Interventions / MDM: Differential diagnosis: Diabetic right heel ulcer, osteomyelitis, chronic anticoagulation, atrial fibrillation Diagnosis considered but do not suspect: Pneumonia however clinically no cough. My EKG interpretation: Rate controlled A-fib at 96, no ST or T wave changes PVCs noted. Imaging independently reviewed and interpreted by myself: 3 views right foot x-ray: Lucencies soft tissue right heel, no signs of osteomyelitis. 1 view chest x-ray: Atelectasis versus infiltrate right lower lobe. External documents reviewed: Wound care clinic note with plans for admission and surgery with IV antibiotics. Test considered but not ordered:N/A ED course: Patient sent in for admission for diabetic right heel ulcer. Afebrile. Sepsis labs ordered with inflammatory markers. Right foot x-ray. Penicillin allergy along with ampicillin however he is on Augmentin. Will initiate meropenem and vancomycin. 1415: I spoke with metal finish inspector Dr. Garcia, discussed patient A-fib on Eliquis. Plan for admission IV antibiotics to medicine, medical clearance before surgery to be performed. No recent wound cultures have been obtained, therefore 1 will be obtained in the ED and sent. 1530: Labs white count 11.3. Lactic acid 3.6. 1 out of 4 SIRS criteria with heart rate. Chest x-ray poss pneumonia however no cough or concerns of this. Elevated inflammatory markers with CRP of 141, ESR of 30. Foot x-ray with no signs of osteomyelitis. I spoke with hospitalist For admission to the medical floor. Re-evaluation: stable Disposition discussed with patient/family/significant other: Patient Case discussed with consulting clinician: Hospitalist, podiatry This note was generated with [employer] dictation software. It may contain incorrect words, spelling, and punctuation that were not noted in checking the note before signing. Lab Data Attestation: I reviewed the patient's lab results. Labs: Laboratory Results - last 24 hr 10/09/24 10/09/24 10/09/24 13:40 13:42 13:47 WBC 11.3 H RBC 4.78 Hgb 12.8 L Hct 38.6 L MCV 80.8 MCH 26.8 L MCHC 33.2 RDW Std Deviation 37.2 RDW Coeff of Jada 12.8 Plt Count 243 MPV 9.8 Immature Gran % (Auto) 0.400 Neut % (Auto) 82.8 H Lymph % (Auto) 9.2 L [place] % (Auto) 6.5 Eos % (Auto) 0.7 Baso % (Auto) 0.4 Absolute Neuts (auto) 9.4 H Absolute Lymphs (auto) 1.04 Nucleated RBC % 0 ESR 30 H PT Cancelled INR Cancelled APTT Cancelled Sodium 134 Potassium 3.9 Chloride 93 L Carbon Dioxide 27.8 Anion Gap 14 BUN 8 Creatinine 0.81 Est GFR (MDRD) Non-Af 95 BUN/Creatinine Ratio 9.6 L Glucose 384 H Lactic Acid 3.6 H* Calcium 9.0 Total Bilirubin 0.88 AST 18 ALT 11 Alkaline Phosphatase 104 C-React Prot Ext Range 141.00 H Total Protein 7.3 Albumin 3.5 Globulin 3.8 Albumin/Globulin Ratio 0.9 Blood Type A NEGATIVE Antibody Screen NEGATIVE 10/09/24 14:54 WBC RBC Hgb Hct MCV MCH MCHC RDW Std Deviation RDW Coeff of Jada Plt Count MPV Immature Gran % (Auto) Neut % (Auto) Lymph % (Auto) [place] % (Auto) Eos % (Auto) Baso % (Auto) Absolute Neuts (auto) Absolute Lymphs (auto) Nucleated RBC % ESR PT 16.6 H INR 1.3 APTT 32.3 Sodium Potassium Chloride Carbon Dioxide Anion Gap BUN Creatinine Est GFR (MDRD) Non-Af BUN/Creatinine Ratio Glucose Lactic Acid Calcium Total Bilirubin AST ALT Alkaline Phosphatase C-React Prot Ext Range Total Protein Albumin Globulin Albumin/Globulin Ratio Blood Type Antibody Screen Radiography Diagnostic Testing: Clinical Impression(s) from Imaging Studies Chest X-Ray 10/09/24 13:45 IMPRESSION: Right basilar atelectasis or pneumonia. Reading Location: [facility] Foot X-Ray 10/09/24 13:45 IMPRESSION: No obvious radiographic evidence of osteomyelitis. However, if clinical suspicion remains high, further evaluation with 3 phase bone scan or MRI is recommended. Reading Location: [facility] Discharge Plan Triage Chief Complaint: Wound ED Provider: Logan Gifford Dx/Rx/DC Orders Clinical Impression: Diabetic ulcer of right heel, Atrial fibrillation, Chronic anticoagulation, Acidosis, lactic Prescriptions: No Action insulin glargine U-300 conc [Toujeo Max U-300 SoloStar] 300 unit/mL (3 mL) insulin pen 25 unit subcut QHS Patient Comments: pt states he is out of Toujeo and unsure when he last had any (DME) OneTouch Ultra Test Strip See Rx Instructions .ROUTE .MEDSUPPLY Qty: 10 Patient Comments: Test blood sugar once daily. Rx Instructions: As directed acetaminophen [Tylenol Extra Strength] 500 mg tablet 1,000 mg PO TID metformin 1,000 MG tablet 1,000 mg PO BIDCM losartan 100 MG tablet 100 mg PO QHS amlodipine 5 MG tablet 5 mg PO QHS [id number] 1 EACH tablet 1 tablet PO DAILY apixaban 5 mg tablet 5 mg PO BID gabapentin 800 mg tablet 800 mg PO .COMPLEX PRN (Reason: neuropathy) Rx Instructions: 800 mg orally 3-4 times daily PRN; (DME) pen needle, diabetic 32 gauge x 5/32 needle See Rx Instructions .Route Qty: 1200 0RF Rx Instructions: As directed metoprolol tartrate 50 mg tablet 50 mg PO BID amoxicillin-pot clavulanate 875-125 mg tablet 1 tab PO BID Primary Care Provider: Bernabe Reese Referrals: Bernabe Reese MD [Primary Care Provider] - Print Language: Chadian Disposition Disposition: Acute Care Hospital [facility]
--- NOTE | 2024-10-09 13:45 | RAD_ITS ---
EXAM: XR Chest, 1 View CLINICAL INDICATION: PREOP TECHNIQUE: Frontal view of the chest. COMPARISON: No relevant prior studies available. FINDINGS: LUNGS AND PLEURAL SPACES: Right basilar atelectasis or pneumonia. No pneumothorax. HEART: Unremarkable. No cardiomegaly. MEDIASTINUM: Unremarkable. Normal mediastinal contour. BONES/JOINTS: Unremarkable. No acute fracture. RAD/Chest 1 View (Portable) IMPRESSION: Right basilar atelectasis or pneumonia. Reading Location: [facility]
--- NOTE | 2024-10-09 13:45 | RAD_ITS ---
EXAM: XR Right Foot Complete, 3 or More Views CLINICAL INDICATION: WOUND TECHNIQUE: Frontal, lateral and oblique views of the right foot. COMPARISON: No relevant prior studies available. FINDINGS: BONES/JOINTS: No obvious radiographic evidence of osteomyelitis. However, if clinical suspicion remains high, further evaluation with 3 phase bone scan or MRI is recommended. Moderate degenerative change of the intertarsal joints. No acute fracture. No dislocation. No erosive changes to the osseous structures. SOFT TISSUES: Soft tissue swelling. No radiopaque foreign body. OTHER FINDINGS: Hammertoes. RAD/Foot min 3 Views IMPRESSION: No obvious radiographic evidence of osteomyelitis. However, if clinical suspici on remains high, further evaluation with 3 phase bone scan or MRI is recommended. Reading Location: [facility]
[2024-10-09] MEDS: Meropenem 1 GM in 0.9% Normal Saline (100mL MB+) 100 ML IV ×2 (13:58→20:16)
[2024-10-09 14:16] LABS: Absolute Lymphocyte Count 1.04 X10^3/uL (0.83-4.51); Absolute Neutrophil Count 9.4 X10^3/uL (2.0-7.7); Basophil# 0.04 X10^3/uL; Basophil% 0.4 % (0-1); Eosinophil# 0.08 X10^3/uL; Eosinophils% 0.7 % (0-5); Hematocrit 38.6 % (40-54); Hemoglobin 12.8 g/dL (13.0-16.5); Lymphocyte # 1.04 X10^3/ul (0.83-4.51); Lymphocyte % 9.2 % (19-41); Mean Corp Hgb Conc 33.2 g/dL (32-36); Mean Corpuscular Hgb 26.8 pg (27.0-32.0); Mean Corpuscular Volume 80.8 fL (80-94); Mean Platelet Vol. 9.8 fl (6.2-12.0); Monocyte# 0.74 X10^3/uL; Monocyte% 6.5 % (0-10); NRBC Flagged by Analyzer 0 % (0-5); Neutrophil # 9.36 X10^3/uL (2.7-7.7); Neutrophil % 82.8 % (47-70); Platelet Count 243 K/mm3 (150-450); RBC Distribution Width CV 12.8 % (11.6-14.6); RBC Distribution Width SD 37.2 fl (35.1-43.9); Red Blood Count 4.78 M/mm3 (4.6-6.2); White Blood Count 11.3 K/mm3 (4.4-11.0)
[2024-10-09 14:20] LABS: Erythrocyte Sedimentation Rate 30 mm/hr (0-20)
--- NOTE | 2024-10-09 14:44 | ED.RN ---
Critical Lactic Acid of 3.6, Dr. Gifford notified
[2024-10-09] MEDS: Vancomycin HCl 2,000 MG in 0.9% Normal Saline (500mL Bag) 500 ML 250 MG IV (14:53)
[2024-10-09 15:23] LABS: International Normalized Ratio 1.3; Prothrombin Time (Protime)PT. 16.6 SECONDS (11.7-14.9)
[2024-10-09 15:24] LABS: Partial Thromboplast Time 32.3 Seconds (24.1-36.2)
[2024-10-09 15:38] LABS: ALB/GLOB Ratio 0.9 RATIO (0.9-2.4); AST(SGOT) 18 U/L (<=37); Alanine Aminotransfer ALT/SGPT 11 U/L (<=46); Albumin, Serum 3.5 g/dL (3.4-4.8); Alkaline Phosphatase 104 U/L (40-129); Anion Gap 14 (5-15); BUN 8 mg/dL (4-19); BUN/Creat Ratio 9.6 RATIO (10-20); Carbon Dioxide 27.8 mmol/L (21.0-32.0); Chloride 93 mmol/L (98-108); Creatinine, Serum 0.81 mg/dL (0.70-1.20); EST Glomerular Filtration Rate 95 (>60); Globulin 3.8 g/dL (2.2-4.2); Glucose 384 mg/dL (70-99); Potassium 3.9 mmol/L (3.3-5.1); Protein, Total 7.3 g/dL (5.9-8.4); Sodium Level 134 mmol/L (133-145); Total Bilirubin 0.88 mg/dL (0.00-1.30)
--- NOTE | 2024-10-09 15:52 | HP.PCM.HOS_ITS ---
HPI - General General Date of Admission: 10/09/24 Date of Service: 10/09/24 Chief Complaint: R diabetic foot ulcer HPI Narrative LANI MARRERO, is a 69-year-old male with a history of diabetes, hypertension, sleep apnea, paroxysmal atrial fibrillation A-fib who presented [facility] ED 10/09/2024 from wound clinic for IV antibiotics and likely surgery. He has had a worsened right heel wound over 4 to 5 weeks and is followed by wound care, presently on Augmentin but when he was seen today he was sent to the ED. In the ED blood pressure initially 199/80 but otherwise vitally stable, repeat blood pressure 141/67. Chest x-ray with right basilar atelectasis however patient with no new changes in his breathing or cough so suspected to be atelectasis not pneumonia and foot x-ray unremarkable. Labs revealed a white blood cell count of 11.3 and an ESR of 30. Glucose 384 on BMP and lactic acid 3.6 with a CRP of 141. Hospitalist contacted for admission. Patient evaluated bedside and does report that ulcer over the past month, reports with his neuropathy that he cannot really feel it so does not have pain but does note it itches, has chronic fatigue which has not changed recently and also has chronic shortness of breath which has not changed with no cough or fever. 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 [facility] Medical History Chronic cellulitis Streptococcal bacteremia Hyperglycemia due to diabetes mellitus Chronic anticoagulation Fall Wears glasses Depression Anxiety Alcohol use History of ulceration Ambulates with cane Insulin dependent diabetes mellitus Arthritis Low iron Dietary restriction Former smoker Shortness of breath on exertion Leg cramps History of pain when walking History of edema Cardiology follow-up encounter History of echocardiogram Blackout Restless legs HTN (hypertension) Diabetes BiPAP (biphasic positive airway pressure) dependence Atrial fibrillation Hyperlipidemia Thyroid nodule Lower extremity neuropathy Essential (primary) hypertension Type 2 diabetes mellitus Morbid obesity Obstructive sleep apnea New onset atrial fibrillation (10/01/20) Pickwickian syndrome Bilateral leg edema Home Medications ?Medication ?Instructions ?Recorded ?Last Taken ?Type losartan 100 mg tablet 100 mg PO QHS Check with supriya souza 04/04/14 10/08/24 History doctor metformin 1,000 mg tablet 1,000 mg PO BIDCM diabetes 1 10/09/24 History amlodipine 5 mg tablet 5 mg PO QHS BP 10/01/20 04/2 07/14 History chkcjlua-tr-natll 300 mcg-K 60 1 tablet PO DAILY suppl emetn 10/01/20 05/21/23 History mcg-lycop 600 mcg-lutein 300 mcg tablet insulin glargine U-300 conc 300 25 unit subcut QHS sudheer betes 09/27/22 05/20/23 History unit/mL (3 mL) subcutaneous pen (Toujeo Max U-300 SoloStar) apixaban 5 mg tablet 5 mg PO BID blood thinner 10/09/24 History gabapentin 800 mg tablet 800 mg PO .COMPLEX PRN neuro paula 11/29/22 10/09/24 History pen needle, diabetic 32 gauge x #1,200 ea 05/23/23 Unk nown Rx acetaminophen 500 mg tablet 1,000 mg PO TID 07/11/23 U nknown History (Tylenol Extra Strength) blood sugar diagnostic (OneTouch #10 ea 07/11/23 Unkno wn History Ultra Test strips) amoxicillin 875 mg-potassium 1 tab PO BID 10/09/24 History clavulanate 125 mg tablet metoprolol tartrate 50 mg tablet 50 mg PO BID 10/09/24 10/09/24 History Allergy/AdvReac Type Severity Reaction Status Date / Time ampicillin Allergy Unknown Verified 10/09/24 12:49 peanut Allergy NEEDS Verified 10/09/24 12:49 FOLLOW-UP Penicillins Allergy Unknown Verified 10/09/24 12:49 Family History Mother Heart disease Diabetes Father Heart disease Cancer Surgical History History of amputation of toe History of wisdom tooth extraction Social History housing: apartment Smoking Status: Never smoker how long ago did patient quit smokin alcohol intake: never substance use type: does not use caffeine: Yes ROS ROS Narrative General: Denies fever/chills HENT: Denies headache, denies stuffy nose, denies sore throat EYES: Denies changes in vision Resp: Denies cough, chronic shortness of breath unchanged Cardiac: Denies chest pain GI: Denies abdominal pain, denies changes in bowel, denies nausea/vomiting : Denies changes in urination Extremity: Denies swelling MSK: Denies weakness Neuro: Chronic neuropathy in feet Heme: Denies any bleeding or bruising Skin: Right foot wound Psychiatric: No complaints voiced Vital Signs Vital Signs Vital Signs: 10/09/24 12:46 10/09/24 13:26 10/09/24 13:46 Temperature 97.8 F 97.9 F Temperature Source Oral Oral Pulse Rate 79 95 Respiratory Rate 14 20 H Blood Pressure 199/80 H 141/67 H Blood Pressure Mean 119 91 Pulse Ox 98 98 98 Oxygen Delivery Method Room Air Room Air Room Air 10/09/24 14:00 10/09/24 15:00 10/09/24 15:17 Temperature 97.9 F 98.6 F 98.6 F Temperature Source Oral Oral Pulse Rate 95 95 95 Respiratory Rate 18 18 18 Blood Pressure 140/98 H 149/61 H 149/61 H Blood Pressure Mean 112 90 90 Pulse Ox 98 98 98 Oxygen Delivery Method Room Air Room Air Physical Exam Narrative General: Alert, oriented, no apparent distress HEENT: Atraumatic, normocephalic Eyes: Anicteric, normal conjunctiva, extraocular movements grossly intact Neck: Supple Respiratory: Diminished at the bases but largely due to body habitus, normal respiratory effort Cardiovascular: Irregularly irregular GI: Soft, nontender, nondistended Extremities: Some nonpitting edema Musculoskeletal: Moving all extremities Neuro: Chronic neuropathy in his feet Skin: Right foot wrapped, does have some warmth in the leg and some slight erythema Psych: Cooperative Results Lab / Micro Data 10/09/24 13:40 10/09/24 13:40 Labs: Laboratory Results - last 24 hr 10/09/24 13:40: WBC 11.3 H, RBC 4.78, Hgb 12.8 L, Hct 38.6 L, MCV 80.8, MCH 26.8 L, MCHC 33.2, RDW Std Deviation 37.2, RDW Coeff of Jada 12.8, Plt Count 243, MPV 9.8, Immature Gran % (Auto) 0.400, Neut % (Auto) 82.8 H, Lymph % (Auto) 9.2 L, [place] % (Auto) 6.5, Eos % (Auto) 0.7, Baso % (Auto) 0.4, Absolute Neuts (auto) 9.4 H, Absolute Lymphs (auto) 1.04, Nucleated RBC % 0, ESR 30 H, PT Cancelled, INR Cancelled, APTT Cancelled, Sodium 134, Potassium 3.9, Chloride 93 L, Carbon Dioxide 27.8, Anion Gap 14, BUN 8, Creatinine 0.81, Est GFR (MDRD) Non-Af 95, B UN/Creatinine Ratio 9.6 L, Glucose 384 H, Calcium 9.0, Total Bilirubin 0.88, AST 18, ALT 11, Alkaline Phosphatase 104, C-React Prot Ext Range 141.00 H, Total Protein 7.3, Albumin 3.5, Globulin 3.8, Albumin/Globulin Ratio 0.9 10/09/24 13:42: Lactic Acid 3.6 H* 10/09/24 13:47: Blood Type A NEGATIVE, Antibody Screen NEGATIVE 10/09/24 14:54: PT 16.6 H, INR 1.3, APTT 32.3 Imaging Radiology Impression Chest X-Ray 10/09/24 13:45 IMPRESSION: Right basilar atelectasis or pneumonia. Reading Location: [facility] Foot X-Ray 10/09/24 13:45 IMPRESSION: No obvious radiographic evidence of osteomyelitis. However, if clinical suspicion remains high, further evaluation with 3 phase bone scan or MRI is recommended. Reading Location: [facility] Assessment & Plan Assessment/Plan (1) Diabetic ulcer of right heel: PLAN: Plan # Right heel diabetic foot wound -With concerns for abscess and/or osteomyelitis -ESR 30, CRP 41, white blood cell count 11.3 with left shift - Continue broad-spectrum antibiotics -Podiatry consult -Culture sent in ED -May need ID consultation once further workup and culture and sensitivity data available - Wound care consult #Type 2 diabetes mellitus -Glucose checks and sliding scale insulin -Patient is out of his long-acting insulin based on med rec and unsure when he last had any's will decrease long-acting to 10 units and can uptitrate as glucoses tolerate #Paroxysmal Atrial Fibrillation -EKG: Patient rate controlled A-fib -Rate control: Continue metoprolol -Anticoagulation: Hold Eliquis due to suspected need for operative management #Hypertension - Continue home medications -Also add as needed hydralazine given significant elevations on admission #TODD -Continue home BiPAP #DVT ppx: REREs Chula Antunez MD
--- NOTE | 2024-10-09 16:07 | CASEMGMT ---
Care Management Face to Face with patient for initial transition planning/care coordination assessment in the ED. This copy writer introduced self and role at [facility]. Patient alert and oriented. Patient willing to participate in assessment and is able to answer all questions appropriately. Care providers, pharmacy, and demographics verified. Admitting Diagnosis: Diabetic ulcer of right heel Other diagnosis history: diabetes, hypertension, sleep apnea, paroxysmal atrial fibrillation A-fib PCP: Mary Ann Specialists: Sibilia, pulmonology. [facility]erred [facility]acy: [facility] Insurance: Medicare A B (primary). Tour Desk (secondary). Prescription Benefit: yes Living Will/HPOA: primary is Norma tesfaye; secondary is sonRogelio. LNOK: Norma tesafye. SonRogelio. Living Arrangements: lives alone in a single level condo; 2 small steps to enter from the front door or garage; independent with all ADLs; patient states not cooking for self and instead getting fast food/easy to warm up in the microwave for meals. Transportation: patient drives self and drives the Taoist around. DME: walker, cane, shower chair, grab bars, blood pressure cuff (though states belief it is not working), glucometer (but not aware if patient has enough testing strips), Dexcom G7 HHC: none SNF/Rehab: [facility] (patient wishes to not go back to [facility]) Community Resources: none Patient goals: Patient wishes to discharge home, but knows patient will likely need SNF. Patient denies any further needs or concerns at this time. Disposition Plan: admission to acute; RN CM/SW to follow for discharge planning needs that may arise. Helga Gaxiola, DYNAMOMETER MECHANIC, RAFTSMAN
[2024-10-09] MEDS: Insulin Lispro 100 UNIT/ML INSULN.PEN SC ×2 (17:21→20:15)
[2024-10-09] MEDS: 0.9% Normal Saline (1000mL) 1,000 ML 50 ML IV (17:21)
--- NOTE | 2024-10-09 17:24 | PCM.RX.CS ---
Consult Antibiotic Management Pharmacy has been consulted to manage selected antibiotic: Vancomycin Type of Intervention Type of Consult: New start Suspected Infection Suspected Infection: Skin/Soft tissue and Osteomyelitis (CONCERN FOR OSTEOMYELITIS) Prior Doses of Antibiotics Prior Doses of Antibiotics Received/Current Regimen: received 2000mg IV x1 in E.R. starting at 14:53 today Labs Labs: Sodium 134 mmol/L (133-145) 10/09/24 13:40 Potassium 3.9 mmol/L (3.3-5.1) 10/09/24 13:40 Chloride 93 mmol/L (98-108) L 10/09/24 13:40 Carbon Dioxide 27.8 mmol/L (21.0-32.0) 10/09/24 13:40 Anion Gap 14 (5-15) 10/09/24 13:40 BUN 8 mg/dL (4-19) 10/09/24 13:40 Creatinine 0.81 mg/dL (0.70-1.20) 10/09/24 13:40 Est GFR (MDRD) Non-Af 95 (>60) 10/09/24 13:40 BUN/Creatinine Ratio 9.6 RATIO (10-20) L 10/09/24 13:40 Glucose 384 mg/dL (70-99) H 10/09/24 13:40 Dosing Weight Weight used for dosin kg Estimated Creatinine Clearance Estimated Creatinine Clearance: 125 ml/min Goal Trough Goal Trough: 15-20 mcg/mL Pharmacy Plan for Drug Dosing Pharmacy Plan for Drug Dosing: Starting 12 hours after the E.R. dose, continue with vanc 2000mg IV q12h. Since the patient is 69 years old, did not want to start with a smaller dose at an 8 hour frequency which would likely result in a high trough, so will start with the max dose of 2000mg given q12h. Check a trough before the 4th overall dose. Pharmacy Service will continue to monitor and adjust dosing as required. Follow-Up Labs Follow-Up Labs: Trough: Vancomycin Date/Time Labs Ordered Labs to be done on [date and time ordered]: 10/11/24 02:30
[2024-10-09 17:49] LABS: Bedside Glucose 320 mg/dL (74-106)
[2024-10-09 17:59] LABS: Reflex Lactate? Y
[2024-10-09 19:03] LABS: Lactic Acid 2.5 mmol/L (0.0-2.0)
[2024-10-09] MEDS: amLODIPine 5 MG Tablet PO (20:13)
[2024-10-09] MEDS: Metoprolol Tartrate 50 MG Tablet PO (20:14)
[2024-10-09] MEDS: Insulin Glargine-YFGN 100 UNIT/ML Pen 10 UNIT SC (20:15)
[2024-10-09] MEDS: Menthol/Lanolin/Calamine/Znox 113 GM Tube 1 APPLIC TOPICAL (20:17)
[2024-10-09] MEDS: Nystatin Powder 15gm Bottle 1 APPLIC TOPICAL (20:17)
[2024-10-09] MEDS: Losartan Potassium 100 MG Tablet PO (20:17)
[2024-10-09 21:25] LABS: Bedside Glucose 306 mg/dL (74-106)
[2024-10-09 22:23] LABS: Lactic Acid 3.6 mmol/L (0.0-2.0)
[2024-10-10 02:00] VITALS: PULSE 83; RESP 21; O2SAT 97
[2024-10-10 02:38] VITALS: BP 129/54; PULSE 78; RESP 18; TEMP 36.8; O2SAT 96
[2024-10-10] MEDS: Vancomycin HCl 2,000 MG in 0.9% Normal Saline (500mL Bag) 500 ML 250 MG IV ×2 (02:44→14:17)
[2024-10-10] MEDS: Nystatin Powder 15gm Bottle 1 APPLIC TOPICAL ×2 (05:47→14:18)
[2024-10-10] MEDS: Meropenem 1 GM in 0.9% Normal Saline (100mL MB+) 100 ML IV ×2 (05:47→14:17)
[2024-10-10 06:56] LABS: Absolute Neutrophil Count 5.1 X10^3/uL (2.0-7.7); Basophil# 0.04 X10^3/uL; Basophil% 0.5 % (0-1); Eosinophil# 0.17 X10^3/uL; Eosinophils% 2.3 % (0-5); Hematocrit 36.7 % (40-54); Hemoglobin 12.2 g/dL (13.0-16.5); Lymphocyte % 21.2 % (19-41); Mean Corp Hgb Conc 33.2 g/dL (32-36); Mean Corpuscular Hgb 27.4 pg (27.0-32.0); Mean Corpuscular Volume 82.5 fL (80-94); Mean Platelet Vol. 9.7 fl (6.2-12.0); Monocyte# 0.62 X10^3/uL; Monocyte% 8.2 % (0-10); NRBC Flagged by Analyzer 0 % (0-5); Neutrophil # 5.07 X10^3/uL (2.7-7.7); Neutrophil % 67.4 % (47-70); Platelet Count 231 K/mm3 (150-450); RBC Distribution Width CV 12.9 % (11.6-14.6); RBC Distribution Width SD 38.8 fl (35.1-43.9); Red Blood Count 4.45 M/mm3 (4.6-6.2); White Blood Count 7.5 K/mm3 (4.4-11.0)
[2024-10-10] MEDS: Insulin Lispro 100 UNIT/ML INSULN.PEN SC ×3 (07:04→17:40)
[2024-10-10 07:25] LABS: Bedside Glucose 268 mg/dL (74-106)
[2024-10-10 07:31] LABS: Anion Gap 11 (5-15); BUN 8 mg/dL (4-19); Calcium,Total 8.5 mg/dL (7.6-11.0); Chloride 98 mmol/L (98-108); Creatinine, Serum 0.65 mg/dL (0.70-1.20); EST Glomerular Filtration Rate 101 (>60); Estimated Creatinine Clearance 126.34 ml/min (50-250); Glucose 254 mg/dL (70-99); Potassium 4.2 mmol/L (3.3-5.1); Sodium Level 136 mmol/L (133-145)
[2024-10-10 08:49] LABS: Hemoglobin A1c 10.9 % (<=5.6)
--- NOTE | 2024-10-10 09:00 | MRI_ITS ---
EXAM: MRI right heel/ankle without contrast CLINICAL HISTORY: Infection wound medial, 4-5 weeks COMPARISON: None TECHNIQUE: T1, T2, stir, multiplanar multisequence images through the right hindfoot and ankle were obtained without contrast. FINDINGS: There is a soft tissue defect at the posterior medial aspect of the calcaneus which extends to the level of the bone. There is low T1, high T2 signal within the inferior medial calcaneus measuring a proximally 1.5 by 2.5 by 1.0 cm, which meets the criteria for osteomyelitis. There is mild diffuse marrow edema in the anterior 2/3 of the talus, which does not meet the criteria for osteomyelitis. There is severe tendinopathy of the Achilles with an intrasubstance ossification in chronic near full-thickness tear, 6 cm from the insertion. There is mild increased fluid in the posterior tibial and flexor digitorum tendon sheaths and in the peroneal tendon sheaths with mild tenosynovitis. The extensor tendons appear intact. There is a chronic appearing tear of the anterior talofibular ligament with ossified components. The posterior talofibular ligament appears intact. The anterior and posterior tibiofibular ligaments appear intact. There is thickening and attenuation with intrasubstance ossified components in the mid aspect of the deltoid consistent with a chronic injury without laxity. The spring ligament appears intact. There is circumferential subcutaneous edema with no organized or drainable collection, which can indicate cellulitis or venous stasis. MRI/Lower Ext Joint Only (Routine) IMPRESSION: There is a soft tissue defect at the posterior medial aspect of the calcaneus w hich extends to the level of the bone. There is low T1, high T2 signal within the inferior medial calcaneus measuring a proximally 1.5 by 2.5 by 1.0 cm, which meets the criteria for osteomyelitis. There is mild diffuse marrow edema in the anterior 2/3 of the talus, which does not meet the criteria for osteomyelitis. There is severe tendinopathy of the Achilles with an intrasubstance ossificatio n in chronic near full-thickness tear, 6 cm from the insertion. There is mild increased fluid in the posterior tibial and flexor digitorum tend on sheaths and in the peroneal tendon sheaths with mild tenosynovitis. There is a chronic appearing tear of the anterior talofibular ligament with oss ified components. There is thickening and attenuation with intrasubstance ossified components in the mid aspect of the deltoid consistent with a chronic injury without laxity. There is circumferential subcutaneous edema with no organized or drainable lul ection, which can indicate cellulitis or venous stasis. Reading [facility]
--- NOTE | 2024-10-10 09:07 | WOUNDNOTE ---
Pt off unit at this time for MRI. will assess foot when patient returns.
[2024-10-10 10:00] VITALS: BP 158/75; PULSE 94; RESP 17; TEMP 36.6; O2SAT 95
[2024-10-10 10:37] VITALS: PULSE 94
[2024-10-10] MEDS: Metoprolol Tartrate 50 MG Tablet PO (10:37)
[2024-10-10] MEDS: Menthol/Lanolin/Calamine/Znox 113 GM Tube 1 APPLIC TOPICAL (10:38)
--- NOTE | 2024-10-10 10:52 | WOUNDNOTE ---
wound photo: right heel
--- NOTE | 2024-10-10 10:53 | WOUNDNOTE ---
skin photo: right lower leg
[2024-10-10 11:29] LABS: Bedside Glucose 304 mg/dL (74-106)
[2024-10-10] MEDS: Gabapentin 800 MG Tablet PO ×2 (11:59→20:58)
--- NOTE | 2024-10-10 12:06 | CON.PCM_ITS ---
Assessment & Plan Assessment/Plan (1) Non-pressure chronic ulcer of other part of right foot with necrosis of bone: PLAN: Exam performed. Vital signs stable today. Patient had mild leukocytosis and elevated CRP on admission. MRI was ordered and reviewed demonstrates calcaneal osteomyelitis to right lower extremity Will plan for wound debridement with bone biopsy and culture, will consider staged procedure with application of external fixation device to offload and stabilize wound to prevent any additional injury Patient will likely require PICC line for IV antibiotics as we will not be performing any calcaneal resection at this time and attempt to maintain calcaneal weightbearing surface. Patient will require SNF placement for prolonged nonweightbearing, advanced wound care, PICC line management Incision and drainage with bone biopsy and culture plan for 10/11/2024 at 12 PM. 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 Patient has chronic right heel wound nonhealing failed treatment in outpatient setting. Patient presented to wound care center with general fatigue malaise and was ultimately sent to hospital for admission due to concerning of worsening infection to right lower extremity heel ulceration. Patient denies constitutional symptoms today. Patient notes he feels slightly improved. No other complaints at this time. [facility] Medical History Kidney stones Chronic cellulitis Streptococcal bacteremia Hyperglycemia due to diabetes mellitus Chronic anticoagulation Fall Wears glasses Depression Anxiety Alcohol use History of ulceration Ambulates with cane Insulin dependent diabetes mellitus Arthritis Low iron Dietary restriction Former smoker Shortness of breath on exertion Leg cramps History of pain when walking History of edema Cardiology follow-up encounter History of echocardiogram Blackout Restless legs HTN (hypertension) Diabetes BiPAP (biphasic positive airway pressure) dependence Atrial fibrillation Hyperlipidemia Thyroid nodule Lower extremity neuropathy Essential (primary) hypertension Type 2 diabetes mellitus Morbid obesity Obstructive sleep apnea New onset atrial fibrillation (10/01/20) Pickwickian syndrome Bilateral leg edema Home Medications ?Medication ?Instructions ?Recorded ?Last Taken ?Type losartan 100 mg tablet 100 mg PO QHS Check with supriya libby 04/04/14 10/08/24 History doctor metformin 1,000 mg tablet 1,000 mg PO BIDCM diabetes 1 10/09/24 History amlodipine 5 mg tablet 5 mg PO QHS BP 10/01/20 04/2 07/14 History xewpcdor-sy-hgjwu 300 mcg-K 60 1 tablet PO DAILY suppl emerin 10/01/20 05/21/23 History mcg-lycop 600 mcg-lutein 300 mcg tablet insulin glargine U-300 conc 300 25 unit subcut QHS sudheer betjoe 09/27/22 05/20/23 History unit/mL (3 mL) subcutaneous pen (Toujeo Max U-300 SoloStar) apixaban 5 mg tablet 5 mg PO BID blood thinner 10/09/24 History gabapentin 800 mg tablet 800 mg PO .COMPLEX PRN neuro paula 11/29/22 10/09/24 History pen needle, diabetic 32 gauge x #1,200 ea 05/23/23 Unk nown Rx acetaminophen 500 mg tablet 1,000 mg PO TID 07/11/23 U nknown History (Tylenol Extra Strength) blood sugar diagnostic (OneTouch #10 ea 07/11/23 Unkno wn History Ultra Test strips) amoxicillin 875 mg-potassium 1 tab PO BID 10/09/24 History clavulanate 125 mg tablet metoprolol tartrate 50 mg tablet 50 mg PO BID 10/09/24 10/09/24 History Allergy/AdvReac Type Severity Reaction Status Date / Time ampicillin Allergy Unknown Verified 10/09/24 12:49 peanut Allergy NEEDS Verified 10/09/24 12:49 FOLLOW-UP Penicillins Allergy Unknown Verified 10/09/24 12:49 Family History Mother Heart disease Diabetes Father Heart disease Cancer Surgical History History of amputation of toe History of wisdom tooth extraction Social History housing: apartment Smoking Status: Never smoker how long ago did patient quit smokin alcohol intake: never substance use type: does not use caffeine: Yes ROS Constitutional Constitutional: Denies change in weight, chills or headache(s) Eyes Eyes: Denies acute decrease in peripheral vision, change in eye color or change in vision ENT HEENT: Denies loss taste/smell, nasal obstruction or sinus pain Cardiovascular Cardiovascular: Denies abdominal edema, abdominal pain or chest pain at rest Respiratory/Chest Respiratory/Chest: Denies change in phlegm color, chest congestion or dyspnea Gastrointestinal Gastrointestinal: Denies belching, bloating or constipation Genitourinary Genitourinary: Denies anuria, burning urination or difficulty with ejaculations Musculoskeletal Musculoskeletal: Denies atrophy, back pain or deformity Physical Exam Narrative Vascular: Diminished dorsalis pedis pulses and posterior tibial pulses bilaterally. Atrophic skin changes noted bilaterally. +1 pitting edema and warmth to right lower extremity. Neurologic: Light touch and protective sensation absent to bilateral feet. Dermatologic: Full-thickness wound noted to plantar medial heel with necrotic base and periwound erythema edema warmth extending proximally along the posterior Achilles tendon. Wound probes down to level of bone. Malodor noted. Musculoskeletal: No gross deformity contributing to wound formation. Lab / Micro Data 10/10/24 06:13 10/10/24 06:13 Labs: Laboratory Results - last 24 hr 10/09/24 13:40: WBC 11.3 H, RBC 4.78, Hgb 12.8 L, Hct 38.6 L, MCV 80.8, MCH 26.8 L, MCHC 33.2, RDW Std Deviation 37.2, RDW Coeff of Jada 12.8, Plt Count 243, MPV 9.8, Immature Gran % (Auto) 0.400, Neut % (Auto) 82.8 H, Lymph % (Auto) 9.2 L, [place] % (Auto) 6.5, Eos % (Auto) 0.7, Baso % (Auto) 0.4, Absolute Neuts (auto) 9.4 H, Absolute Lymphs (auto) 1.04, Nucleated RBC % 0, ESR 30 H, PT Cancelled, INR Cancelled, APTT Cancelled, Sodium 134, Potassium 3.9, Chloride 93 L, Carbon Dioxide 27.8, Anion Gap 14, BUN 8, Creatinine 0.81, Est GFR (MDRD) Non-Af 95, B UN/Creatinine Ratio 9.6 L, Glucose 384 H, Calcium 9.0, Total Bilirubin 0.88, AST 18, ALT 11, Alkaline Phosphatase 104, C-React Prot Ext Range 141.00 H, Total Protein 7.3, Albumin 3.5, Globulin 3.8, Albumin/Globulin Ratio 0.9 10/09/24 13:42: Lactic Acid 3.6 H* 10/09/24 13:47: Blood Type A NEGATIVE, Antibody Screen NEGATIVE 10/09/24 14:54: PT 16.6 H, INR 1.3, APTT 32.3 10/09/24 17:19: POC Glucose 320 H 10/09/24 18:15: Lactic Acid 2.5 H* 10/09/24 20:05: POC Glucose 306 H 10/10/24 06:13: WBC 7.5, RBC 4.45 L, Hgb 12.2 L, Hct 36.7 L, MCV 82.5, MCH 27.4, MCHC 33.2, RDW Std Deviation 38.8, RDW Coeff of Jada 12.9, Plt Count 231, MPV 9.7, Immature Gran % (Auto) 0.400, Neut % (Auto) 67.4, Lymph % (Auto) 21.2, [place] % (Auto) 8.2, Eos % (Auto) 2.3, Baso % (Auto) 0.5, Absolute Neuts (auto) 5.1, Absolute Lymphs (auto) 1.60, Nucleated RBC % 0, Sodium 136, Potassium 4.2, Chloride 98, Carbon Dioxide 27.0, Anion Gap 11, BUN 8, Creatinine 0.65 L, Estim Creat Clear Calc 126.34, Est GFR (MDRD) Non-Af 101, BUN/Creatinine Ratio 12.0, G lucose 254 H, Hemoglobin A1c 10.9 H, Calcium 8.5 10/10/24 07:01: POC Glucose 268 H 10/10/24 11:08: POC Glucose 304 H Micro: Microbiology 10/09/24 15:00 Wound - Right Foot Wound Culture - Preliminary Gram negative [place] [facility] Radiology Impression Chest X-Ray 10/09/24 13:45 IMPRESSION: Right basilar atelectasis or pneumonia. Reading [facility] Foot X-Ray 10/09/24 13:45 IMPRESSION: No obvious radiographic evidence of osteomyelitis. However, if clinical suspicion remains high, further evaluation with 3 phase bone scan or MRI is recommended. Reading Location: [facility] Lower Extremity MRI 10/10/24 09:00 IMPRESSION: There is a soft tissue defect at the posterior medial aspect of the calcaneus which extends to the level of the bone. There is low T1, high T2 signal within the inferior medial calcaneus measuring a proximally 1.5 by 2.5 by 1.0 cm, which meets the criteria for osteomyelitis. There is mild diffuse marrow edema in the anterior 2/3 of the talus, which does not meet the criteria for osteomyelitis. There is severe tendinopathy of the Achilles with an intrasubstance ossification in chronic near full-thickness tear, 6 cm from the insertion. There is mild increased fluid in the posterior tibial and flexor digitorum tendon sheaths and in the peroneal tendon sheaths with mild tenosynovitis. There is a chronic appearing tear of the anterior talofibular ligament with ossified components. There is thickening and attenuation with intrasubstance ossified components in the mid aspect of the deltoid consistent with a chronic injury without laxity. There is circumferential subcutaneous edema with no organized or drainable collection, which can indicate cellulitis or venous stasis. Reading Location: [facility]
--- NOTE | 2024-10-10 12:35 | CASEMGMT ---
Social Work- ALVARADO received notice from Dr Garcia that pt requests referral to [facility] at discharge for additional skilled therapy. Physician reports that pt will have extensive needs at discharge. SW notified DCA of referral request. ALVARADO remains available to follow. ROSALINDA Pack
--- NOTE | 2024-10-10 12:39 | CASEMGMT ---
Discharge Planning Referral sent to [facility]. Norma Ayala DC Planning Asst.
--- NOTE | 2024-10-10 12:50 | CASEMGMT ---
[facility] [place] [facility]. Norma Ayala DC Planning Asst.
[2024-10-10] MEDS: 0.9% Saline Lock 10 ML Syringe IV (14:17)
[2024-10-10 14:30] VITALS: BP 148/81; PULSE 83; RESP 18; TEMP 36.7; O2SAT 100
--- NOTE | 2024-10-10 16:27 | CASEMGMT ---
RN CM into pt room, pt lying in bed in no distress on pap. Pt made aware that [facility] and when he is medically ready to be dc'd he will be trf'd over. Pt gave the thumbs up. Pt denies any questions.
[2024-10-10 17:14] LABS: Bedside Glucose 298 mg/dL (74-106)
--- NOTE | 2024-10-10 18:35 | PCM.PN.HOSP ---
Reason for Visit Reason for Visit: Diagnoses Type 2 diabetes mellitus with diabetic polyneuropathy (10/09/24) Type 2 diabetes mellitus with foot ulcer (10/09/24) Non-pressure chronic ulcer of right heel and midfoot with unspecified severity (10/09/24) Non-pressure chronic ulcer of other part of right foot with necrosis of bone (10/09/24) Other acute osteomyelitis, right ankle and foot (10/09/24) Subjective Subjective Patient was seen and examined today, his right lower extremity is wrapped with surgical dressing this was not removed for examination of his right foot neuropathic ulceration. Podiatry told me that they are going to take the patient to surgery tomorrow. Objective Data Objective Data Vital Signs: Vital Signs Temp Pulse Resp BP Pulse Ox O2 Del Method FiO2 98.1 F 83 18 148/81 H 100 Bi-pap 30 10/10/24 14:30 10/10/24 14:30 10/10/24 14:30 10/10/24 14:30 10/10/24 14:30 10/10/24 14:30 10/10/24 02:38 Oxygen Delivery Method Bi-pap Weight: 157.306 kg Body Mass Index (BMI) 52.7 Intake & Output: Intake and Output for Last 24 Hours 10/08/24 10/09/24 10/10/24 23:59 23:59 23:59 Intake Total 660 / 660 2580 / 2580 Balance 660 / 660 2580 / 2580 Lab / Micro Data 10/10/24 06:13 10/10/24 06:13 Labs: Laboratory Results - last 24 hr 10/09/24 13:42: Lactic Acid 3.6 H* 10/09/24 18:15: Lactic Acid 2.5 H* 10/09/24 20:05: POC Glucose 306 H 10/10/24 06:13: WBC 7.5, RBC 4.45 L, Hgb 12.2 L, Hct 36.7 L, MCV 82.5, MCH 27.4, MCHC 33.2, RDW Std Deviation 38.8, RDW Coeff of Jada 12.9, Plt Count 231, MPV 9.7, Immature Gran % (Auto) 0.400, Neut % (Auto) 67.4, Lymph % (Auto) 21.2, [place] % (Auto) 8.2, Eos % (Auto) 2.3, Baso % (Auto) 0.5, Absolute Neuts (auto) 5.1, Absolute Lymphs (auto) 1.60, Nucleated RBC % 0, Sodium 136, Potassium 4.2, Chloride 98, Carbon Dioxide 27.0, Anion Gap 11, BUN 8, Creatinine 0.65 L, Estim Creat Clear Calc 126.34, Est GFR (MDRD) Non-Af 101, BUN/Creatinine Ratio 12.0, Glucose 254 H, Hemoglobin A1c 10.9 H, Calcium 8.5 10/10/24 07:01: POC Glucose 268 H 10/10/24 11:08: POC Glucose 304 H 10/10/24 16:56: POC Glucose 298 H Micro: Microbiology 10/09/24 13:59 Blood Culture (Wb) - Anticubital Left Blood Culture - Preliminary 10/09/24 15:00 Wound - Right Foot Gram Stain - Final 10/09/24 15:00 Wound - Right Foot Wound Culture - Preliminary Gram negative [place] 10/09/24 13:40 Blood Culture (Wb) - Anticubital Left Blood Culture - Preliminary Radiography Diagnostic Testing: Radiology Impression Lower Extremity MRI 10/10/24 09:00 IMPRESSION: There is a soft tissue defect at the posterior medial aspect of the calcaneus which extends to the level of the bone. There is low T1, high T2 signal within the inferior medial calcaneus measuring a proximally 1.5 by 2.5 by 1.0 cm, which meets the criteria for osteomyelitis. There is mild diffuse marrow edema in the anterior 2/3 of the talus, which does not meet the criteria for osteomyelitis. There is severe tendinopathy of the Achilles with an intrasubstance ossification in chronic near full-thickness tear, 6 cm from the insertion. There is mild increased fluid in the posterior tibial and flexor digitorum tendon sheaths and in the peroneal tendon sheaths with mild tenosynovitis. There is a chronic appearing tear of the anterior talofibular ligament with ossified components. There is thickening and attenuation with intrasubstance ossified components in the mid aspect of the deltoid consistent with a chronic injury without laxity. There is circumferential subcutaneous edema with no organized or drainable collection, which can indicate cellulitis or venous stasis. Reading Location: [facility] Physical Exam Const alert, oriented x3 and no apparent distress Constitutional Narrative: Patient has class III obesity General Appearance: cooperative, well kempt and well developed Orientation / Consciousness: awake, oriented to person, oriented to place and oriented to time HEENT normocephalic, head/scalp atraumatic and moist oral mucous membranes Eyes PERRL, EOMs intact bilaterally and conjunctivae normal Neck supple, no JVD, thyroid normal and no carotid bruits General: trachea midline Resp normal respiratory effort, no retractions, no use of accessory muscles and clear to auscultation bilaterally Auscultation: Negative for rales, rhonchi or wheezes Cardio S1 normal heart sound, S2 normal heart sound, no murmurs, no rub and no gallops Cardio Narrative: Heart rate and rhythm is irregular GI normal to inspection, nondistended, normoactive bowel sounds, soft to palpation, non-tender and non-distended Extremity no clubbing, cyanosis or edema Skin no rashes or lesions noted General Skin Exam: no breakdown Neuro oriented x3, CN's II-XII intact bilaterally, moves all extremities and no focal motor deficits Sensorium / Orientation: awake and alert Speech: speech normal Psych affect normal Assessment & Plan Assessment/Plan (1) Diabetic ulcer of right heel: PLAN: Plan 1. Neuropathic ulceration of the right heel-again podiatry is planning on taking the patient to surgery tomorrow #2 type 2 diabetes-patient's blood sugars will be monitored, sliding scale insulin will be administered as needed #3 paroxysmal atrial fibrillation-patient will remain on rate control medication, his Eliquis is being held #4 essential hypertension-patient's home medications will be continued #5 obstructive sleep apnea-patient is on BiPAP Total clinical time spent by myself addressing the patient's medical issues, reviewing all of his data, and collaborating with patient's care team: 35 minutes Charges/Coding Visit Charges Inpatient E&M: 22682 Subs Hosp L2
[2024-10-10] MEDS: 0.9% Normal Saline (100mL Bag) 100 ML 15 ML IV (20:25)
[2024-10-10 20:26] VITALS: BP 127/68; PULSE 75; RESP 18; TEMP 36.6; O2SAT 95
[2024-10-11] VITALS (14 sets, daily range): BP systolic 112–149; BP diastolic 59–115; PULSE 64–87; RESP 16–18; TEMP 36.1–37.1; O2SAT 94–98; BMI 52.7
[2024-10-11 00:13] LABS: Bedside Glucose 291 mg/dL (74-106)
[2024-10-11] MEDS: Menthol/Lanolin/Calamine/Znox 113 GM Tube 1 APPLIC TOPICAL ×2 (00:48→21:50)
[2024-10-11] MEDS: Losartan Potassium 100 MG Tablet PO ×2 (00:53→21:51)
[2024-10-11] MEDS: Insulin Lispro 100 UNIT/ML INSULN.PEN SC ×4 (00:53→21:51)
[2024-10-11] MEDS: Metoprolol Tartrate 50 MG Tablet PO ×3 (00:54→21:53)
[2024-10-11] MEDS: Insulin Glargine-YFGN 100 UNIT/ML Pen 10 UNIT SC ×2 (00:54→21:52)
[2024-10-11] MEDS: Nystatin Powder 15gm Bottle 1 APPLIC TOPICAL ×4 (00:55→21:54)
[2024-10-11] MEDS: Meropenem 1 GM in 0.9% Normal Saline (100mL MB+) 100 ML IV ×4 (00:55→21:54)
[2024-10-11] MEDS: amLODIPine 5 MG Tablet PO ×2 (00:56→21:55)
[2024-10-11 03:36] LABS: Vancomycin, Trough Level 14.2 ug/mL (5.0-15.0)
[2024-10-11 03:37] LABS: Thyroid Stim Hormone (TSH) 0.848 uIU/mL (0.300-4.200)
--- NOTE | 2024-10-11 03:50 | PCM.RX.CS ---
Consult Antibiotic Management Pharmacy has been consulted to manage selected antibiotic: Vancomycin Type of Intervention Type of Consult: Follow-up Suspected Infection Suspected Infection: Skin/Soft tissue Labs Labs: Sodium 136 mmol/L (133-145) 10/10/24 06:13 Potassium 4.2 mmol/L (3.3-5.1) 10/10/24 06:13 Chloride 98 mmol/L (98-108) 10/10/24 06:13 Carbon Dioxide 27.0 mmol/L (21.0-32.0) 10/10/24 06:13 Anion Gap 11 (5-15) 10/10/24 06:13 BUN 8 mg/dL (4-19) 10/10/24 06:13 Creatinine 0.65 mg/dL (0.70-1.20) L 10/10/24 06:13 Est GFR (MDRD) Non-Af 101 (>60) 10/10/24 06:13 BUN/Creatinine Ratio 12.0 RATIO (10-20) 10/10/24 06:13 Glucose 254 mg/dL (70-99) H 10/10/24 06:13 Vancomycin Trough 14.2 ug/mL (5.0-15.0) 10/11/24 02:29 Microbiology Microbiology: Microbiology 10/09/24 13:59 Blood Culture (Wb) - Anticubital Left Blood Culture - Preliminary 10/09/24 15:00 Wound - Right Foot Gram Stain - Final 10/09/24 15:00 Wound - Right Foot Wound Culture - Preliminary Gram negative [place] 10/09/24 13:40 Blood Culture (Wb) - Anticubital Left Blood Culture - Preliminary Dosing Weight Weight used for dosin kg Estimated Creatinine Clearance Estimated Creatinine Clearance: 155 Pharmacy Plan for Drug Dosing Pharmacy Plan for Drug Dosing: Vancomycin trough level of 14.2, drawn 12hrs post-dose, was just below the target range of 15-20. Will continue dosing at 2000mg q12h, and will draw another trough level in two days. Pharmacy Service will continue to monitor and adjust dosing as required. Follow-Up Labs Follow-Up Labs: Trough: Vancomycin Date/Time Labs Ordered Labs to be done on [date and time ordered]: 10/13/24 @0230
[2024-10-11] MEDS: Vancomycin HCl 2,000 MG in 0.9% Normal Saline (500mL Bag) 500 ML 250 MG IV ×2 (04:03→15:58)
[2024-10-11 06:29] LABS: Bedside Glucose 230 mg/dL (74-106)
--- NOTE | 2024-10-11 08:49 | WOUNDNOTE ---
Pt going to surgery today. will leave dressing in place.
[2024-10-11 10:43] LABS: Bedside Glucose 221 mg/dL (74-106)
--- NOTE | 2024-10-11 11:30 | PCM.PRE.AN2 ---
ASA Classification* ASA Classification ASA Classification: 3 Assessment & Plan Anesthesia* Anesthesia Assessment Anesthesia Assessment: Discussed sedation and/or anesthesia options, risks, benefits, and alternatives with patient/parents/legal guardian/POA. Questions invited. The patient/parents/legal guardian/POA seems to understand and agrees to proceed with anesthesia plan. Reviewed the physical assessment, medical history, allergy history and patient home medications list prior to surgery/procedure/anesthetic and documented any changes. Performed airway and anesthesia risk assessments. Anesthesia Type Anesthesia Type: MAC History Source History Obtained from:: Patient and Chart Anesthesia Focused Assessment* Temperature: 97.8 F Pulse Rate: 69 Blood Pressure: 149/74 Respiratory Rate: 18 Pulse Ox: 98 Oxygen Delivery Method: Room Air Fraction of Inspired Oxygen (FIO2): 30 Airway Assessment Mouth opens: >3 cm Mallampati Score: IV Teeth Condition: Chipped/Broken (Patient has several chipped and broken teeth. Remaining teeth are tight.) and Missing (Patient has couple missing teeth.) Neck Range of motion (ROM): Limited ROM Focused Labs Anesthesia Preop lab: CBC WBC 7.5 K/mm3 (4.4-11.0) 10/10/24 06:13 10/10/24 RBC 4.45 M/mm3 (4.6-6.2) L 10/10/24 06:13 10/10/24 Hgb 12.2 g/dL (13.0-16.5) L 10/10/24 06:13 10/10/24 Hct 36.7 % (40-54) L 10/10/24 06:13 10/10/24 Plt Count 231 K/mm3 (150-450) 10/10/24 06:13 10/10/24 CHEMISTRY Potassium 4.2 mmol/L (3.3-5.1) 10/10/24 06:13 10/10/24 Sodium 136 mmol/L (133-145) 10/10/24 06:13 10/10/24 Magnesium 1.7 mg/dL (1.6-2.6) 06/19/24 14:54 06/19/24 BUN 8 mg/dL (4-19) 10/10/24 06:13 10/10/24 Creatinine 0.65 mg/dL (0.70-1.20) L 10/10/24 06:13 10/10/24 Glucose 254 mg/dL (70-99) H 10/10/24 06:13 10/10/24 POC Glucose 221 mg/dL (74-106) H 10/11/24 10:25 10/11/24 TSH 0.848 uIU/mL (0.300-4.200) 10/11/24 02:29 10/11/24 COAG PT 16.6 SECONDS (11.7-14.9) H 10/09/24 14:54 10/09/24 Pre-Assessment Diagnosis/Proposed Procedure Planned Operative Procedure(s): Right foot wound incision and drainage with wide debridement and bone biopsy/cultures. 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 When Was Last Pacemaker Check QUESTION #4 FULL TEXT: You/Your Family Experience fever (hyperthermia) with Anesthesia Last Oral Intake Last Oral intake: Last Oral Intake NPO since 00:00 10/11/24 10:20 Meds taken in AM with sips of Yes 10/11/24 10:20 water? Meds patient instructed to metoprolol 10/11/24 10:20 take am of surgery Any additional information?: Yes Meds taken in AM with sips of water?: Yes PONV PONV - firer marine: PONV - firer marine Female HX of Motion Sickness HX of N/V After Surgery Non-Smoker Duration of Surgery greater than 60 minutes Number of Risk Factors PONV Score Height & Weight Height & Weight: Anesthesia: Height & Weight Height 5 ft 8 in 10/11/24 10:20 Weight: 157.306 kg 10/11/24 10:20 Body Mass Index (BMI) 52.7 10/11/24 10:20 Respiratory Assessment Respiratory Assessment - firer marine: Respiratory Tract Infection Hx - firer marine Hx Respiratory Tract Infection No 04/28/22 10:03 STOP Sleep Apnea STOP Sleep Apnea - firer marine: STOP Sleep Apnea - firer marine Hx Hypertension Yes 10/10/24 12:54 Hx Sleep Apnea Yes 10/09/24 16:40 CPAP No 10/09/24 16:40 BIPAP Yes 10/09/24 16:40 Do you snore loudly (louder than talking or can be heard Do you often feel tired/ fatigued/ sleepy during daytime? Has anyone observed you stop breathing during sleep? STOP Results Positive 10/09/24 16:40 QUESTION #5 FULL TEXT : Do you snore loudly (louder than talking or can be heard through closed doors)? Tobacco Use History Tobacco Use History - firer marine: Tobacco Use History - firer marine Tobacco Use Smoking Status Never smoker 10/09/24 16:40 Hx Tobacco Use No 10/09/24 16:40 Years Smoking Packs Smoked per Day Smoking Cessation Date was within the last 15 years Hx Smoking Cessation Date 06/20/73 10/09/24 16:40 Hx Smoking Cessation No 10/09/24 16:40 Counseling Hematologic Medial History Hematologic Hx - firer marine: Hematologic Medical Hx - [place] farmer Hx of Blood Transfusion No 10/09/24 16:40 Hx of Transfusion in last 3 No 10/09/24 16:40 Months Date of Last Transfusion (if within last 3 months) Ever experience any problems No 10/09/24 16:40 with transfusion(s)? Specify any problems Hx of Preganancy in last 3 N/A 10/09/24 16:40 Months Nurse Filling Out Transfusion FSTEINER 10/09/24 16:40 & Questions: Date: 10/09/24 10/09/24 16:40 Time: 16:42 10/09/24 16:40 Patient unable to answer at this time (ie. confused, unrespo /Reproduction History /Reproductive History - firer marine: /Reproductive Hx- firer marine Hx Now Gestational Age (in weeks): EDC: Hx Hx Para Hx Section SAB No 04/28/22 10:03 Active Medications Active Medications: Current Medications Generic Name Dose Route Start Last Admin Trade Name Freq PRN Reason Stop Dose Admin Acetaminophen 650 mg 10/09/24 17:07 Acetaminophen 325 Mg Tablet PO Q6H PRN PRN Pain 1-10 Or Fever >100.7 Albuterol Sulfate 2.5 mg 10/09/24 17:07 Albuterol 2.5 Mg/3 Ml Vial.Neb. INHALATION Q2H PRN PRN SOB &/OR WHEEZING Amlodipine Besylate 5 mg 10/09/24 22:00 10/11/24 00:56 Amlodipine 5 Mg Tablet PO 5 mg QHS JANNETTE Administration Protocol Calamine/Phenol 1 applic 10/09/24 22:00 10/11/24 10:49 Menthol/Lanolin/Calamine/Znox 113 Gm Tube TOPICAL Not Given BID JANNETTE Protocol Gabapentin 800 mg 10/10/24 11:22 10/10/24 20:58 Gabapentin 800 Mg Tablet PO 800 mg TID PRN Administration Pain Score 1-10 Glucagon 1 mg 10/09/24 17:07 Glucagon 1 Mg/Ml Syringe IM X1 PRN HYPOGLYCEMIA Protocol Sodium Chloride 100 mls @ 15 mls/hr 10/09/24 16:48 10/11/24 06:10 IV Infused .Q6H40M PRN Infusion Saline Flush Sodium Chloride 100 mls @ 15 mls/hr 10/09/24 16:48 IV .Q6H40M PRN Additional IVPB Infusion Dextrose 250 mls @ 0 mls/hr 10/09/24 17:07 Dextrose 10%-Water IV .Q0M PRN HYPOGLYCEMIA Protocol As Directed Vancomycin IV-PHARMACY TO DOSE 500 mls @ 250 mls/hr 10/09/24 17:07 1 each/ Sodium Chloride IV X1 PRN Rx to Dose Protocol Meropenem 1 gm/ Sodium 120 mls @ 33 mls/hr 10/09/24 22:00 10/11/24 09:50 Chloride IV Infused Q8 JANNETTE Infusion Vancomycin HCl 2,000 mg/ 540 mls @ 250 mls/hr 10/10/24 03:00 10/11/24 06:20 Sodium Chloride IV Infused Q12H JANNETTE Infusion Insulin Glargine 10 unit 10/09/24 22:00 10/11/24 00:54 Insulin Glargine-Yfgn 100 Unit/Ml Pen SC 10 unit QHS JANNETTE Administration Insulin Human Lispro 0 unit 10/09/24 17:07 10/11/24 06:08 Insulin Lispro 100 Unit/Ml Insuln.Pen SC 4 units ACHS JANNETTE Administration Protocol Losartan Potassium 100 mg 10/09/24 22:00 10/11/24 00:53 Losartan Potassium 100 Mg Tablet PO 100 mg QHS JANNETTE Administration Protocol Melatonin 3 mg 10/09/24 17:07 Melatonin 3 Mg Tablet PO QHS PRN PRN INSOMNIA Metoprolol Tartrate 50 mg 10/09/24 22:00 10/11/24 08:13 Metoprolol Tartrate 50 Mg Tablet PO 50 mg BID JANNETTE Administration Protocol Nystatin 1 applic 10/09/24 22:00 10/11/24 06:08 Nystatin Powder 15gm Bottle TOPICAL 1 applic TID [facility] Administration Protocol Ondansetron HCl 4 mg 10/09/24 17:07 Ondansetron 4 Mg/2 Ml Vial IV Q8H PRN PRN NAUSEA/VOMITING Oxycodone HCl 5 mg 10/09/24 17:07 Oxycodone 5 Mg Tablet PO Q4H PRN PRN Pain Score 4-10 Senna/Docusate Sodium 2 tablet 10/09/24 17:07 Senna/Docusate Sodium 1 Tablet PO BID PRN PRN Constipation Sodium Chloride 10 - 40 ml 10/09/24 16:48 10/10/24 14:17 0.9% Saline Lock 10 Ml Syringe IV 10 ml UD PRN Administration SALINE FLUSH Vancomycin Protocol 1 lab 10/13/24 01:30 Vancomycin Trough/Random Due 10/13/24 03:30 DAILY [facility] PFSH Medical History Kidney stones Chronic cellulitis Streptococcal bacteremia Hyperglycemia due to diabetes mellitus Chronic anticoagulation Fall Wears glasses Depression Anxiety Alcohol use History of ulceration Ambulates with cane Insulin dependent diabetes mellitus Arthritis Low iron Dietary restriction Former smoker Shortness of breath on exertion Leg cramps History of pain when walking History of edema Cardiology follow-up encounter History of echocardiogram Blackout Restless legs HTN (hypertension) Diabetes BiPAP (biphasic positive airway pressure) dependence Atrial fibrillation Hyperlipidemia Thyroid nodule Lower extremity neuropathy Essential (primary) hypertension Type 2 diabetes mellitus Morbid obesity Obstructive sleep apnea New onset atrial fibrillation (10/01/20) Pickwickian syndrome Bilateral leg edema Home Medications ?Medication ?Instructions ?Recorded ?Last Taken ?Type losartan 100 mg tablet 100 mg PO QHS Check with primary 04/04/14 10/08/24 History doctor metformin 1,000 mg tablet 1,000 mg PO BIDCM diabetes 04/04/14 10/09/24 History amlodipine 5 mg tablet 5 mg PO QHS BP 10/01/20 10/08/24 History lhbmfcoi-bw-xuzpa 300 mcg-K 60 1 tablet PO DAILY supplemetn 10/01/20 05/21/23 History mcg-lycop 600 mcg-lutein 300 mcg tablet insulin glargine U-300 conc 300 25 unit subcut QHS diabetes 09/27/22 05/20/23 History unit/mL (3 mL) subcutaneous pen (Toujeo Max U-300 SoloStar) apixaban 5 mg tablet 5 mg PO BID blood thinner 11/29/22 10/09/24 History gabapentin 800 mg tablet 800 mg PO .COMPLEX PRN neuropathy 11/29/22 10/09/24 History pen needle, diabetic 32 gauge x #1,200 ea 05/23/23 Unknown Rx acetaminophen 500 mg tablet 1,000 mg PO TID 07/11/23 Unknown History (Tylenol Extra Strength) blood sugar diagnostic (OneTouch #10 ea 07/11/23 Unknown History Ultra Test strips) amoxicillin 875 mg-potassium 1 tab PO BID 10/09/24 10/09/24 History clavulanate 125 mg tablet metoprolol tartrate 50 mg tablet 50 mg PO BID blood pressure 10/09/24 10/11/24 History Allergy/AdvReac Type Severity Reaction Status Date / Time ampicillin Allergy Unknown Verified 10/09/24 12:49 peanut Allergy NEEDS Verified 10/09/24 12:49 FOLLOW-UP Penicillins Allergy Unknown Verified 10/09/24 12:49 Family History Mother Heart disease Diabetes Father Heart disease Cancer Surgical History History of amputation of toe History of wisdom tooth extraction Social History housing: apartment Smoking Status: Never smoker how long ago did patient quit smokin alcohol intake: never substance use type: does not use caffeine: Yes Review of Systems (Anesthesia) ROS Narrative System reviewed and no additional complaints, except as documented.
[2024-10-11] MEDS: 0.9% Normal Saline (1000mL) 1,000 ML 15 ML IV (11:37)
--- NOTE | 2024-10-11 12:00 | UL_PTH ---
PATIENT: LANI MARRERO LOC: ICU U#:[id number] AGE/SX: 69/M ROOM: [place] [address] RE10/09/[address]: Dr. Ethan Santos DO : 1955 BED: 1 DIS: 10/16/2024 SPEC #: [id number] RECD: 10/12/24 08:12 STATUS: JAIME REAntony #: [id number] LINDSAY: 10/11/24 12:[address]: Ramon Garcia DEPT: SURGICAL PATHOLOGY RECD BY: Rogelio Avila ENTERED: 10/12/24 09:47 SP TYPE: ULCER OTHR DR: MD Dr. Albert Weinstein, JUSTOM DO Dr. Chula Callejas MD Dr. Robert Leininger, MD Tissues: Foot, NOS Procedures: Surgery Specimen Level III Comments: @ Ordering doctor for SUIII edited from to @ by DANIELLE at 10/12/24 0948 @ Submitting doctor edited from to @ by DANIELLE at 10/12/24 0948 HEADER OPERATION: Debridement wound, I&D of abscess PRE-OP DIAGNOSIS: Right foot ulcer TISSUE SUBMITTED: A- Right heel wound MICROSCOPIC DIAGNOSIS A. Right heal, wound, debridement: * Bone with acute osteomyelitis MICROSCOPIC DESCRIPTION Slides are reviewed. GROSS DESCRIPTION A. Received in formalin in a container labeled with the patient's name, date of , and right heal wound are 2 smalls-brown and shaggy fragments of firm tissue measuring 0.7 x 0.5 x 0.4 cm and 1.5 x 0.6 x 0.3 cm. No skin is grossly recognized. Serial sections of each reveal smalls-brown, friable, and firm possible bone. Submitted entirely in A1 following decalcification. [facility] 10-12-2024 CPT:47330
[2024-10-11] MEDS: Bupivacaine Mpf 0.5% 30 ML VIAL (12:50)
--- NOTE | 2024-10-11 13:04 | OP.PCM_ITS ---
Problems Associated Problem List Diagnoses (1) Other acute osteomyelitis, right ankle and foot: (2) Non-pressure chronic ulcer of other part of right foot with necrosis of bone: Operative Report (Standard) Operative Information Date of Procedure: 10/11/24 Pre-Operative Diagnosis: 1) Right foot wounddiabetic/neuropathic down to level of bone 2) right calcaneal osteomyelitis Post-Operative Diagnosis: Same Surgery/Procedure Performed: 1) excisional debridement down to including level of bone right foot 2) incision bone cortex, right foot office clerk assistant: No Type of Anesthesia: MAC RN Documented Start/Stop Times: Operation Date: 10/15/24 15:15 <No data on this case meets the specified criteria> Procedure Start Time: 12:30 Procedure Stop Time: 13:05 Select all DRAINS/GRAFTS/IMPLANTS that apply: None Special Medications: 10 cc 0.5% marcaine plain Estimated Blood Loss: 100cc Specimen collected: Yes Description of specimen(s) removed: Right foot tissue culture, right foot calcaneal bone culture and pathology, post large swab cultures right heel wound Description of surgery: Patient has chronic heel wound and subsequently developed acute osteomyelitis confirmed on MRI, decision was made for wound debridement and incision of bone cortex for bone biopsy and culture. This will be a staged procedures second stage will be repeat debridement and application of external fixation device to offload nonhealing calcaneal ulceration to prevent weightbearing on site Patient was brought back the operating placed company in supine position on operating room table. Patient induced under MAC anesthesia. Well-padded right calf tourniquet was applied this was not used throughout the case. Right lower extremity scrubbed prepped draped using typical aseptic fashion. Once cleared by anesthesia right heel wound was anesthetized using local filtration technique with 10 cc half percent Marcaine plain. Excisional debridement right foot wound down to level of bone: Right heel wound was noted to be 3 x 4 cm predebridement extends down to level of bone with necrotic base. Postdebridement the wound was 4.5 x 5.5 x 2.5 cm with clean granular base exposed calcaneal bone centrally. Wound was excisionally debrided down to including level of bone using combination of 15 blade with pickups and bone rongeurs. Tissue from debridement was passed back table for tissue culture Incision of bone cortex for bone biopsy and culture: The calcaneal bone was flushed and then fresh bone rongeurs were used to take bone biopsy and bone culture of the calcaneal bone. Site was then flushed with copious muscle normal sterile saline using low- pressure pulse lavage. Post lavage swab cultures were then taken. Hemostasis obtained then obtained using electrocautery. Wound was dressed with Surgicel 4 x 4's Kerlix ABD pads 2 layers of specialist cast padding two 4 inch Matthew 2 layers of specialist cast padding 6 inch Matthew. Patient was transported PACU vital signs stable and vascular status intact all digits for further monitoring prior to transfer back to floor. Patient to lerated procedure seizure well apparent satisfactory condition. Solid bleeding noted throughout the case. No complications noted. Specimens taken as documented within operative note. Surgical Findings: As dictated above. Complications Complications: No
--- NOTE | 2024-10-11 13:15 | PCM.POST.ANE ---
Anesthesia: Postop Eval I Current Vital Signs Temperature: 97 F Pulse Rate: 64 Blood Pressure: 137/69 Respiratory Rate: 18 Pulse Ox: 95 Oxygen Delivery Method: Room Air Assessment Airway patent: Yes Spontaneous unlabored respirations: Yes Mental status: Awake nausea: No Vomiting: No Anesthesia Complication: No Fluid Hydration Crystalloid volume administer (ml): 500 Total IV fluid infused: 500 Progress Note Anesthesia document: Postop Eval 1 completed: Yes
--- NOTE | 2024-10-11 14:27 | POSTOPAN2_ITS ---
Anesthesia Postop Eval I Sum Postop Eval Completion status Anesthesia document: Postop Eval 1 completed: Yes Anesthesia Postop Eval I Summary Anesthesia Postop Eval I Summary: Anesthesia Postop Eval I: Assessment Summary Airway patent Yes 10/11/24 13:15 [email or web address] [email or web address] Spontaneous unlabored Yes 10/11/24 13:15 TELETYPESETTER OPERATOR.[email or web address] respirations Mental status Awake 10/11/24 13:15 [email or web address] [email or web address].[email or web address] nausea No 10/11/24 13:15 TELETYPESETTER OPERATOR.[email or web address] Vomiting No 10/11/24 13:15 TELETYPESETTER OPERATOR.[email or web address] Anesthesia Postop Eval I: Fluid Summary Crystalloid volume administer 500 10/11/24 13:15 [email or web address] [email or web address].[email or web address] (ml) Colloids volume administered ( ml) Blood Product volume administered (ml) Total IV fluid infused 500 10/11/24 13:15 TELETYPESETTER [email or web address].[email or web address] Anesthesia Postop Eval I: Summary Notes Anesthesia Complication No 10/11/24 13:15 [email or web address] [email or web address].[email or web address] Anesthesia Complication Comment: Post-operative progress note Anesthesia: Postop Eval II Evaluation Mental status: Awake and Calm Pain Level: 0 nausea: No Vomiting: No Complications Anesthesia Complication: No
--- NOTE | 2024-10-11 14:27 | PCM.POSTANE2 ---
Anesthesia Postop Eval I Sum Postop Eval Completion status Anesthesia document: Postop Eval 1 completed: Yes Anesthesia Postop Eval I Summary Anesthesia Postop Eval I Summary: Anesthesia Postop Eval I: Assessment Summary Airway patent Yes 10/11/24 13:15 FLORAL [email or web address] Spontaneous unlabored Yes 10/11/24 13:15 FLORAL [email or web address].[email or web address] respirations Mental status Awake 10/11/24 13:15 FLORAL DECORATOR.[email or web address] nausea No 10/11/24 13:15 FLORAL DECORATOR.[email or web address] Vomiting No 10/11/24 13:15 FLORAL DECORATOR.[email or web address] Anesthesia Postop Eval I: Fluid Summary Crystalloid volume administer 500 10/11/24 13:15 FLORAL DECORATOR.[email or web address] (ml) Colloids volume administered ( ml) Blood Product volume administered (ml) Total IV fluid infused 500 10/11/24 13:15 FLORAL DECORATOR.HBARR Anesthesia Postop Eval I: Summary Notes Anesthesia Complication No 10/11/24 13:15 FLORAL [email or web address].[email or web address] Anesthesia Complication Comment: Post-operative progress note Anesthesia: Postop Eval II Evaluation Mental status: Awake and Calm Pain Level: 0 nausea: No Vomiting: No Complications Anesthesia Complication: No
[2024-10-11 16:36] LABS: Bedside Glucose 272 mg/dL (74-106)
--- NOTE | 2024-10-11 17:13 | PCM.PN.HOSP ---
Reason for Visit Reason for Visit: Diagnoses Type 2 diabetes mellitus with diabetic polyneuropathy (10/09/24) Type 2 diabetes mellitus with foot ulcer (10/09/24) Non-pressure chronic ulcer of right heel and midfoot with unspecified severity (10/09/24) Non-pressure chronic ulcer of other part of right foot with necrosis of bone (10/09/24) Other acute osteomyelitis, right ankle and foot (10/09/24) Subjective Subjective Patient was seen and examined today, he had surgery on his right foot today. Patient does not appear to be in any distress, he is alert. Objective Data Objective Data Vital Signs: Vital Signs Temp Pulse Resp BP Pulse Ox O2 Del Method FiO2 98.7 F 72 18 149/76 H 94 Room Air 30 10/11/24 13:53 10/11/24 13:53 10/11/24 13:53 10/11/24 13:53 10/11/24 13:53 10/11/24 13:55 10/11/24 11:32 Oxygen Delivery Method Room Air Weight: 157.306 kg Body Mass Index (BMI) 52.7 Intake & Output: Intake and Output for Last 24 Hours 10/09/24 10/10/24 10/11/24 23:59 23:59 23:59 Intake Total 660 / 660 3240 / 3240 1380 / 1380 Balance 660 / 660 3240 / 3240 1380 / 1380 Lab / Micro Data 10/10/24 06:13 10/10/24 06:13 Labs: Laboratory Results - last 24 hr 10/10/24 16:56: POC Glucose 298 H 10/10/24 23:33: POC Glucose 291 H 10/11/24 02:29: TSH 0.848, Vancomycin Trough 14.2 10/11/24 06:07: POC Glucose 230 H 10/11/24 10:25: POC Glucose 221 H 10/11/24 16:07: POC Glucose 272 H Micro: Microbiology 10/09/24 15:00 Wound - Right Foot Gram Stain - Final 10/09/24 15:00 Wound - Right Foot Wound Culture - Final Proteus sp. Enterococcus faecalis 10/09/24 15:00 Wound - Right Foot Anaerobic Culture - Preliminary Checking for anaerobes, further studies to follow. 10/09/24 13:59 Blood Culture (Wb) - Anticubital Left Blood Culture - Final 10/09/24 13:40 Blood Culture (Wb) - Anticubital Left Blood Culture - Preliminary Gram Positive Cocci Physical Exam Narrative alert, oriented x3 and no apparent distress Constitutional Narrative: Patient has class III obesity General Appearance: cooperative, well kempt and well developed Orientation / Consciousness: awake, oriented to person, oriented to place and oriented to time HEENT normocephalic, head/scalp atraumatic and moist oral mucous membranes Eyes PERRL, EOMs intact bilaterally and conjunctivae normal Neck supple, no JVD, thyroid normal and no carotid bruits General: trachea midline Resp normal respiratory effort, no retractions, no use of accessory muscles and clear to auscultation bilaterally Auscultation: Negative for rales, rhonchi or wheezes Cardio S1 normal heart sound, S2 normal heart sound, no murmurs, no rub and no gallops Cardio Narrative: Heart rate and rhythm is irregular GI normal to inspection, nondistended, normoactive bowel sounds, soft to palpation, non-tender and non-distended Extremity Right lower extremity is wrapped in surgical dressing and Matthew wrap, this was not removed for examination of the area Skin no rashes or lesions noted General Skin Exam: Patient's right lower leg/foot is wrapped with surgical dressing-this was not removed for examination of the area Neuro oriented x3, CN's II-XII intact bilaterally, moves all extremities and no focal motor deficits Sensorium / Orientation: awake and alert Speech: speech normal Psych affect normal Assessment & Plan Assessment/Plan (1) Acute osteomyelitis of right calcaneus: (2) Diabetic ulcer of right heel: PLAN: Plan 1. Neuropathic ulceration of the right heel-with osteomyelitis-patient will continue on present antibiotics, he will need a consult from infectious diseases as to the appropriateness of the antibiotics and the length of treatment. #2 type 2 diabetes-patient's blood sugars will be monitored, sliding scale insulin will be administered as needed #3 paroxysmal atrial fibrillation-patient will remain on rate control medication, his Eliquis is being held #4 essential hypertension-patient's home medications will be continued #5 obstructive sleep apnea-patient is on BiPAP Total clinical time spent by myself addressing the patient's medical issues, reviewing all of his data, and collaborating with patient's care team: 35 minutes Charges/Coding Visit Charges Inpatient E&M: 53612 Subs Hosp L2
[2024-10-11] MEDS: Gabapentin 800 MG Tablet PO (22:26)
[2024-10-11 23:06] LABS: Bedside Glucose 261 mg/dL (74-106)
[2024-10-12] VITALS (8 sets, daily range): BP systolic 137–162; BP diastolic 68–94; PULSE 61–75; RESP 16–18; TEMP 35.9–37.1; O2SAT 97–98
[2024-10-12] MEDS: Vancomycin HCl 2,000 MG in 0.9% Normal Saline (500mL Bag) 500 ML 250 MG IV ×2 (03:04→15:38)
[2024-10-12] MEDS: Meropenem 1 GM in 0.9% Normal Saline (100mL MB+) 100 ML IV ×3 (05:40→22:10)
[2024-10-12] MEDS: Nystatin Powder 15gm Bottle 1 APPLIC TOPICAL ×3 (05:41→22:10)
[2024-10-12] MEDS: oxyCODONE 5 MG Tablet PO ×3 (05:52→22:38)
[2024-10-12] MEDS: Acetaminophen 325 MG Tablet 650 MG PO ×2 (05:53→22:38)
[2024-10-12] MEDS: Insulin Lispro 100 UNIT/ML INSULN.PEN SC ×4 (05:54→22:18)
[2024-10-12 06:20] LABS: Bedside Glucose 200 mg/dL (74-106)
--- NOTE | 2024-10-12 08:05 | NURSING ---
Pt iv site leaking and is edematous. IV DC and notified, order for picc line placement.
--- NOTE | 2024-10-12 10:50 | RAD_ITS ---
EXAM: Portable chest radiograph. CLINICAL HISTORY: PICC line placement. COMPARISON: Prior study dated October 09, 2024. TECHNIQUE: Portable chest radiograph. FINDINGS: No PICC line catheter is seen on this examination. Cardiomegaly. The lungs are clear. RAD/CXR for Line Placement IMPRESSION: Stable examination. No PICC line is seen on this examination. Reading Location: [facility]
[2024-10-12] MEDS: Metoprolol Tartrate 50 MG Tablet PO ×2 (11:00→22:13)
[2024-10-12] MEDS: Menthol/Lanolin/Calamine/Znox 113 GM Tube 1 APPLIC TOPICAL ×2 (11:00→22:10)
--- NOTE | 2024-10-12 11:28 | RAD_ITS ---
EXAM: Portable chest radiograph. CLINICAL HISTORY: PICC line placement COMPARISON: Comparison is made with prior study done earlier. TECHNIQUE: Portable chest radiograph. FINDINGS: A right-sided PICC line catheter is seen with the tip in the midportion of the superior vena cava. RAD/CXR for Line Placement IMPRESSION: The tip of the PICC line catheter is in the midportion of the superior vena cav a. Reading Location: [facility]
--- NOTE | 2024-10-12 11:29 | WOUNDNOTE ---
wound photo: right heel
--- NOTE | 2024-10-12 12:10 | RAD_ITS ---
EXAM: Portable chest radiograph. CLINICAL HISTORY: Right PICC line placement. COMPARISON: Prior study dated October 09, 2024. TECHNIQUE: Frontal portable chest radiograph. FINDINGS: The right PICC line catheter is faintly seen. A repeat chest radiograph with increased kv recommended. RAD/CXR for Line Placement IMPRESSION: Visualization of the right PICC line catheter although the distal tip is not we ll seen. Repeat radiograph recommended. Reading Location: [facility] [place]--[facility]
--- NOTE | 2024-10-12 12:32 | PCM.CONS.GEN ---
Assessment & Plan Assessment/Plan (1) Acute osteomyelitis of right calcaneus: PLAN: R heel osteo with associated MRSE bacteremia - wound cx with proteus, enterococcus. Taken to OR 10/11/[address] Mancini for I&D. Picc placed. On vanc/david. Plan will be for 6 weeks iv abx. Reports anaphylaxis with PCN as a child, may have taken keflex without issue. Will follow, thank you (2) Type 2 diabetes mellitus with diabetic polyneuropathy: QUALIFIERS: Diabetes mellitus residential insulin use: unspecified roasterman insulin use status Qualified Code(s): E11.42 - Type 2 diabetes mellitus with diabetic polyneuropathy (3) Bacteremia due to coagulase-negative Staphylococcus: HPI Consult Data Date of Consult: 10/12/24 HPI Narrative Reason for Consultation: osteo HPI Narrative: LANI MARRERO, is a 69 M with DM neuropathy, presented 10/09 with 1-2 months progressive R heel wound with associated redness, swelling, drainage, ulceration. No pain in foot. No fever or chills, denies any recent outpt abx. Came to ED, admitted, seen by podiatry, taken to OR 10/11/[address] Mancini for I&D. Feeling ok today. Full ROS performed and neg except as noted above. [facility] Medical History Kidney stones Chronic cellulitis Streptococcal bacteremia Hyperglycemia due to diabetes mellitus Chronic anticoagulation Fall Wears glasses Depression Anxiety Alcohol use History of ulceration Ambulates with cane Insulin dependent diabetes mellitus Arthritis Low iron Dietary restriction Former smoker Shortness of breath on exertion Leg cramps History of pain when walking History of edema Cardiology follow-up encounter History of echocardiogram Blackout Restless legs HTN (hypertension) Diabetes BiPAP (biphasic positive airway pressure) dependence Atrial fibrillation Hyperlipidemia Thyroid nodule Lower extremity neuropathy Essential (primary) hypertension Type 2 diabetes mellitus Morbid obesity Obstructive sleep apnea New onset atrial fibrillation (10/01/20) Pickwickian syndrome Bilateral leg edema Home Medications ?Medication ?Instructions ?Recorded ?Last Taken ?Type losartan 100 mg tablet 100 mg PO QHS Check with primary 04/04/14 10/08/24 [address] doctor metformin 1,000 mg tablet 1,000 mg PO BIDCM diabetes 04/04/14 10/09/24 History amlodipine 5 mg tablet 5 mg PO QHS BP 10/01/20 10/08/24 History pecefjrz-yb-nqlki 300 mcg-K 60 1 tablet PO DAILY supplemetn 10/01/20 05/21/23 History mcg-lycop 600 mcg-lutein 300 mcg tablet insulin glargine U-300 conc 300 25 unit subcut QHS diabetes 09/27/22 05/20/23 History unit/mL (3 mL) subcutaneous pen (Toujeo Max U-300 SoloStar) apixaban 5 mg tablet 5 mg PO BID blood thinner 11/29/22 10/09/24 History gabapentin 800 mg tablet 800 mg PO .COMPLEX PRN neuropathy 11/29/22 10/09/24 History pen needle, diabetic 32 gauge x #1,200 ea 05/23/23 Unknown Rx acetaminophen 500 mg tablet 1,000 mg PO TID 07/11/23 Unknown History (Tylenol Extra Strength) blood sugar diagnostic (OneTouch #10 ea 07/11/23 Unknown History Ultra Test strips) amoxicillin 875 mg-potassium 1 tab PO BID 10/09/24 10/09/24 History clavulanate 125 mg tablet metoprolol tartrate 50 mg tablet 50 mg PO BID blood pressure 10/09/24 10/11/24 History Allergy/AdvReac Type Severity Reaction Status Date / Time ampicillin Allergy Unknown Verified 10/09/24 12:49 peanut Allergy NEEDS Verified 10/09/24 12:49 FOLLOW-UP Penicillins Allergy Unknown Verified 10/09/24 12:49 Family History Mother Heart disease Diabetes Father Heart disease Cancer Surgical History History of amputation of toe History of wisdom tooth extraction Social History housing: apartment Smoking Status: Never smoker how long ago did patient quit smokin alcohol intake: never substance use type: does not use caffeine: Yes Physical Exam Const alert, oriented x3 and no apparent distress General Appearance: cooperative HEENT normocephalic and head/scalp atraumatic Eyes PERRL and EOMs intact bilaterally Neck supple and No nodes Resp normal air movement and clear to auscultation bilaterally Cardio regular rate and regular rhythm GI soft to palpation, non-tender and non-distended Extremity General Extremity: edema Skin Skin Narrative: RLE wrapped, reviewed photos Neuro CN's II-XII intact bilaterally Lab / Micro Data Attestation: I reviewed the patient's lab results. 10/10/24 06:13 10/10/24 06:13 Labs: Laboratory Results - last 24 hr 10/11/24 16:07: POC Glucose 272 H 10/11/24 21:48: POC Glucose 261 H 10/12/24 05:53: POC Glucose 200 H Micro: Microbiology 10/11/24 Unknown Wound - Heel Right Wound Culture - Preliminary Mixed Culture 10/11/24 13:22 Wound - Heel Right Wound Culture - Preliminary No growth-Final to follow 10/11/24 13:19 Wound - Heel Right Wound Culture - Preliminary No growth-Final to follow 10/09/24 15:00 Wound - Right Foot Gram Stain - Final 10/09/24 15:00 Wound - Right Foot Wound Culture - Final Proteus sp. Enterococcus faecalis 10/09/24 15:00 Wound - Right Foot Anaerobic Culture - Preliminary Checking for anaerobes, further studies to follow. 10/09/24 13:59 Blood Culture (Wb) - Anticubital Left Blood Culture - Final Coag Negative Staph 10/09/24 13:40 Blood Culture (Wb) - Anticubital Left Blood Culture - Final Staphylococcus epidermidis Imaging Radiology Impression Chest X-Ray 10/12/24 10:50 IMPRESSION: Stable examination. No PICC line is seen on this examination. Reading Location: [facility]-1 Chest X-Ray 10/12/24 11:28 IMPRESSION: The tip of the PICC line catheter is in the midportion of the superior vena cava. Reading Location: [facility] Chest X-Ray 10/12/24 12:10 IMPRESSION: Visualization of the right PICC line catheter although the distal tip is not well seen. Repeat radiograph recommended. Reading Location: [facility]
[2024-10-12 13:30] LABS: Bedside Glucose 294 mg/dL (74-106)
[2024-10-12] MEDS: 0.9% Saline Lock 10 ML Syringe IV (14:06)
[2024-10-12] MEDS: Gabapentin 800 MG Tablet PO ×2 (16:22→22:38)
[2024-10-12 16:59] LABS: Bedside Glucose 275 mg/dL (74-106)
--- NOTE | 2024-10-12 19:47 | PCM.PN.HOSP ---
Reason for Visit Reason for Visit: Diagnoses Other staphylococcus as the cause of diseases classified elsewhere (10/09/24) Type 2 diabetes mellitus with diabetic polyneuropathy (10/09/24) Type 2 diabetes mellitus with foot ulcer (10/09/24) Non-pressure chronic ulcer of right heel and midfoot with unspecified severity (10/09/24) Non-pressure chronic ulcer of other part of right foot with necrosis of bone (10/09/24) Other acute osteomyelitis, right ankle and foot (10/09/24) Bacteremia (10/09/24) Subjective Subjective Patient was seen and examined today, patient is awaiting approval for [facility]. I had infectious disease to see the patient today and a PICC line was inserted for extended IV antibiotic usage. Objective Data Objective Data Vital Signs: Vital Signs Temp Pulse Resp BP Pulse Ox O2 Del Method FiO2 98 F 75 18 148/72 H 98 Room Air 30 10/12/24 16:46 10/12/24 16:46 10/12/24 16:56 10/12/24 16:46 10/12/24 16:46 10/12/24 16:56 10/11/24 11:32 Oxygen Delivery Method Room Air Weight: 157.306 kg Body Mass Index (BMI) 52.7 Intake & Output: Intake and Output for Last 24 Hours 10/10/24 10/11/24 10/12/24 23:59 23:59 23:59 Intake Total 3240 / 3240 2994.25 / 2994.25 3389.3 / 3389.3 Output Total 450 / 450 1350 / 1350 Balance 3240 / 3240 2544.25 / 2544.25 2039.3 / 2039.3 Lab / Micro Data 10/10/24 06:13 10/10/24 06:13 Labs: Laboratory Results - last 24 hr 10/11/24 21:48: POC Glucose 261 H 10/12/24 05:53: POC Glucose 200 H 10/12/24 13:08: POC Glucose 294 H 10/12/24 16:21: POC Glucose 275 H Micro: Microbiology 10/11/24 Unknown Wound - Heel Right Gram Stain - Final 10/11/24 Unknown Wound - Heel Right Wound Culture - Preliminary Mixed Culture 10/11/24 13:22 Wound - Heel Right Gram Stain - Final 10/11/24 13:22 Wound - Heel Right Wound Culture - Preliminary No growth-Final to follow 10/11/24 13:19 Wound - Heel Right Gram Stain - Final 10/11/24 13:19 Wound - Heel Right Wound Culture - Preliminary No growth-Final to follow 10/09/24 15:00 Wound - Right Foot Gram Stain - Final 10/09/24 15:00 Wound - Right Foot Wound Culture - Final Proteus sp. Enterococcus faecalis 10/09/24 15:00 Wound - Right Foot Anaerobic Culture - Preliminary Checking for anaerobes, further studies to follow. 10/09/24 13:59 Blood Culture (Wb) - Anticubital Left Blood Culture - Final Coag Negative Staph 10/09/24 13:40 Blood Culture (Wb) - Anticubital Left Blood Culture - Final Staphylococcus epidermidis Radiography Diagnostic Testing: Radiology Impression Chest X-Ray 10/12/24 10:50 IMPRESSION: Stable examination. No PICC line is seen on this examination. Reading Location: [facility]-1 Chest X-Ray 10/12/24 11:28 IMPRESSION: The tip of the PICC line catheter is in the midportion of the superior vena cava. Reading Location: [facility]1 Chest X-Ray 10/12/24 12:10 IMPRESSION: Visualization of the right PICC line catheter although the distal tip is not well seen. Repeat radiograph recommended. Reading Location: [facility]1 Physical Exam Narrative alert, oriented x3 and no apparent distress Constitutional Narrative: Patient has class III obesity General Appearance: cooperative, well kempt and well developed Orientation / Consciousness: awake, oriented to person, oriented to place and oriented to time HEENT normocephalic, head/scalp atraumatic and moist oral mucous membranes Eyes PERRL, EOMs intact bilaterally and conjunctivae normal Neck supple, no JVD, thyroid normal and no carotid bruits General: trachea midline Resp normal respiratory effort, no retractions, no use of accessory muscles and clear to auscultation bilaterally Auscultation: Negative for rales, rhonchi or wheezes Cardio S1 normal heart sound, S2 normal heart sound, no murmurs, no rub and no gallops Cardio Narrative: Heart rate and rhythm is irregular GI normal to inspection, nondistended, normoactive bowel sounds, soft to palpation, non-tender and non-distended Extremity Right lower extremity is wrapped in surgical dressing and Matthew wrap, this was not removed for examination of the area Skin no rashes or lesions noted General Skin Exam: Patient's right lower leg/foot is wrapped with surgical dressing-this was not removed for examination of the area Neuro oriented x3, CN's II-XII intact bilaterally, moves all extremities and no focal motor deficits Sensorium / Orientation: awake and alert Speech: speech normal Psych affect normal Assessment & Plan Assessment/Plan (1) Acute osteomyelitis of right calcaneus: (2) Diabetic ulcer of right heel: PLAN: Plan 1. Neuropathic ulceration of the right heel-with osteomyelitis-postop day #1 excisional debridement down to and including level of bone right foot, incision of bone cortex right foot-patient will continue on present antibiotics-meropenem and vancomycin, ID is participating in his care #2 type 2 diabetes-patient's blood sugars will be monitored, sliding scale insulin will be administered as needed #3 paroxysmal atrial fibrillation-patient will remain on rate control medication, his Eliquis is being held #4 essential hypertension-patient's home medications will be continued #5 obstructive sleep apnea-patient is on BiPAP Total clinical time spent by myself addressing the patient's medical issues, reviewing all of his data, and collaborating with patient's care team: 35 minutes Charges/Coding Visit Charges Inpatient E&M: 01523 Subs Hosp L2
[2024-10-12] MEDS: Insulin Glargine-YFGN 100 UNIT/ML Pen 10 UNIT SC (22:11)
[2024-10-12] MEDS: Losartan Potassium 100 MG Tablet PO (22:12)
[2024-10-12] MEDS: amLODIPine 5 MG Tablet PO (22:12)
[2024-10-12 23:27] LABS: Bedside Glucose 285 mg/dL (74-106)
[2024-10-13 02:58] LABS: Creatinine, Serum 0.64 mg/dL (0.70-1.20); EST Glomerular Filtration Rate 102 (>60); Estimated Creatinine Clearance 126.34 ml/min (50-250)
[2024-10-13 03:54] LABS: Vancomycin, Trough Level 23.8 ug/mL (5.0-15.0)
--- NOTE | 2024-10-13 04:02 | PCM.RX.CS ---
Consult Antibiotic Management Pharmacy has been consulted to manage selected antibiotic: Vancomycin Type of Intervention Type of Consult: Follow-up Suspected Infection Suspected Infection: Skin/Soft tissue Labs Labs: Sodium 136 mmol/L (133-145) 10/10/24 06:13 Potassium 4.2 mmol/L (3.3-5.1) 10/10/24 06:13 Chloride 98 mmol/L (98-108) 10/10/24 06:13 Carbon Dioxide 27.0 mmol/L (21.0-32.0) 10/10/24 06:13 Anion Gap 11 (5-15) 10/10/24 06:13 BUN 8 mg/dL (4-19) 10/10/24 06:13 Creatinine 0.64 mg/dL (0.70-1.20) L 10/13/24 02:30 Est GFR (MDRD) Non-Af 102 (>60) 10/13/24 02:30 BUN/Creatinine Ratio 12.0 RATIO (10-20) 10/10/24 06:13 Glucose 254 mg/dL (70-99) H 10/10/24 06:13 Vancomycin Trough 23.8 ug/mL (5.0-15.0) H 10/13/24 02:30 Microbiology Microbiology: Microbiology 10/11/24 Unknown Wound - Heel Right Gram Stain - Final 10/11/24 Unknown Wound - Heel Right Wound Culture - Preliminary Mixed Culture 10/11/24 13:22 Wound - Heel Right Gram Stain - Final 10/11/24 13:22 Wound - Heel Right Wound Culture - Preliminary No growth-Final to follow 10/11/24 13:19 Wound - Heel Right Gram Stain - Final 10/11/24 13:19 Wound - Heel Right Wound Culture - Preliminary No growth-Final to follow 10/09/24 15:00 Wound - Right Foot Gram Stain - Final 10/09/24 15:00 Wound - Right Foot Wound Culture - Final Proteus sp. Enterococcus faecalis 10/09/24 15:00 Wound - Right Foot Anaerobic Culture - Preliminary Checking for anaerobes, further studies to follow. 10/09/24 13:59 Blood Culture (Wb) - Anticubital Left Blood Culture - Final Coag Negative Staph 10/09/24 13:40 Blood Culture (Wb) - Anticubital Left Blood Culture - Final Staphylococcus epidermidis Dosing Weight Weight used for dosin kg Estimated Creatinine Clearance Estimated Creatinine Clearance: 157 Goal Trough Goal Trough: 15-20 mcg/mL Pharmacy Plan for Drug Dosing Pharmacy Plan for Drug Dosing: Vancomycin trough level of 23.8, drawn 11hrs post-dose, was above the target range of 15-20. Will suspend current dosing, and will draw a random vanco level in 12 hours to determine further orders. Pharmacy Service will continue to monitor and adjust dosing as required. Follow-Up Labs Follow-Up Labs: Trough: Vancomycin (random) Date/Time Labs Ordered Labs to be done on [date and time ordered]: 10/13/24 @1430 (random)
[2024-10-13] MEDS: Meropenem 1 GM in 0.9% Normal Saline (100mL MB+) 100 ML IV ×3 (05:07→21:46)
[2024-10-13] MEDS: 0.9% Normal Saline (100mL Bag) 100 ML 15 ML IV ×2 (05:07→21:48)
[2024-10-13] MEDS: oxyCODONE 5 MG Tablet PO ×2 (05:07→09:06)
[2024-10-13] MEDS: Nystatin Powder 15gm Bottle 1 APPLIC TOPICAL ×3 (05:08→21:40)
[2024-10-13] MEDS: Acetaminophen 325 MG Tablet 650 MG PO ×2 (05:08→21:41)
[2024-10-13 05:27] VITALS: BP 142/70; PULSE 50; RESP 16; TEMP 36.7; O2SAT 96
[2024-10-13] MEDS: Insulin Lispro 100 UNIT/ML INSULN.PEN SC ×4 (06:14→21:45)
[2024-10-13 06:37] LABS: Bedside Glucose 253 mg/dL (74-106)
--- NOTE | 2024-10-13 08:57 | CASEMGMT ---
Social Work Pt scheduled for surgery on Tuesday. ALVARADO met with pt who confirms plan to go to [place] at discharge. ALVARADO explained that [facility] can accept when pt is medically ready. Update sent to [place] via [facility]. Plan: [facility], when medically ready ROSALINDA Garza
[2024-10-13 09:06] VITALS: PULSE 58
[2024-10-13] MEDS: Metoprolol Tartrate 50 MG Tablet PO ×2 (09:06→21:42)
[2024-10-13] MEDS: Menthol/Lanolin/Calamine/Znox 113 GM Tube 1 APPLIC TOPICAL ×2 (09:07→21:47)
[2024-10-13 09:20] VITALS: BP 136/73; PULSE 58; RESP 16; TEMP 36.3; O2SAT 97
--- NOTE | 2024-10-13 11:46 | PN.HOSP_ITS ---
Reason for Visit Reason for Visit: Diagnoses Other staphylococcus as the cause of diseases classified elsewhere (10/09/24) Type 2 diabetes mellitus with diabetic polyneuropathy (10/09/24) Type 2 diabetes mellitus with foot ulcer (10/09/24) Non-pressure chronic ulcer of right heel and midfoot with unspecified severity (10/09/24) Non-pressure chronic ulcer of other part of right foot with necrosis of bone (10/09/24) Other acute osteomyelitis, right ankle and foot (10/09/24) Bacteremia (10/09/24) Subjective Subjective Patient was seen and examined today, I talked with Dr. Mancini (podiatry), he states he is going to take the patient back to surgery on 10/15/[address] cage over his right lower leg so that he is not able to bear weight on the right foot. This will delay the patient going to residential-probably he could be discharged on Tuesday of this week. It is unclear what antibiotics that infectious diseases will want to continue on the patient. Objective Data Objective Data Vital Signs: Vital Signs Temp Pulse Resp BP Pulse Ox O2 Del Method FiO2 97.4 F L 58 L 16 136/73 H 97 Room Air 30 10/13/24 09:20 10/13/24 09:20 10/13/24 09:20 10/13/24 09:20 10/13/24 09:20 10/13/24 09:23 10/11/24 11:32 Oxygen Delivery Method Room Air Weight: 157.306 kg Body Mass Index (BMI) 52.7 Intake & Output: Intake and Output for Last 24 Hours 10/11/24 10/12/24 10/13/24 23:59 23:59 23:59 Intake Total 2994.25 / 2994.25 3389.3 / 3389.3 240 / 240 Output Total 450 / 450 1900 / 1900 Balance 2544.25 / 2544.25 1489.3 / 1489.3 240 / 240 Lab / Micro Data 10/10/24 06:13 10/13/24 02:30 Labs: Laboratory Results - last 24 hr 10/12/24 13:08: POC Glucose 294 H 10/12/24 16:21: POC Glucose 275 H 10/12/24 22:17: POC Glucose 285 H 10/13/24 02:30: Creatinine 0.64 L, Estim Creat Clear Calc 126.34, Est GFR (MDRD) Non-Af 102, Vancomycin Trough 23.8 H 10/13/24 06:15: POC Glucose 253 H Micro: Microbiology 10/09/24 15:00 Wound - Right Foot Gram Stain - Final 10/09/24 15:00 Wound - Right Foot Wound Culture - Final Proteus sp. Enterococcus faecalis 10/09/24 15:00 Wound - Right Foot Anaerobic Culture - Final Bacteroides thetaiotaomicron Clostridium ramosum 10/11/24 Unknown Wound - Heel Right Gram Stain - Final 10/11/24 Unknown Wound - Heel Right Wound Culture - Preliminary Mixed Culture 10/11/24 13:22 Wound - Heel Right Gram Stain - Final 10/11/24 13:22 Wound - Heel Right Wound Culture - Preliminary No growth-Final to follow 10/11/24 13:19 Wound - Heel Right Gram Stain - Final 10/11/24 13:19 Wound - Heel Right Wound Culture - Preliminary No growth-Final to follow 10/09/24 13:59 Blood Culture (Wb) - Anticubital Left Blood Culture - Final Coag Negative Staph 10/09/24 13:40 Blood Culture (Wb) - Anticubital Left Blood Culture - Final Staphylococcus epidermidis Radiography Diagnostic Testing: Radiology Impression Chest X-Ray 10/12/24 11:28 IMPRESSION: The tip of the PICC line catheter is in the midportion of the superior vena cava. Reading Location: [facility]- Chest X-Ray 10/12/24 12:10 IMPRESSION: Visualization of the right PICC line catheter although the distal tip is not well seen. Repeat radiograph recommended. Reading Location: [facility]-1 Physical Exam Narrative alert, oriented x3 and no apparent distress Constitutional Narrative: Patient has class III obesity General Appearance: cooperative, well kempt and well developed Orientation / Consciousness: awake, oriented to person, oriented to place and oriented to time HEENT normocephalic, head/scalp atraumatic and moist oral mucous membranes Eyes PERRL, EOMs intact bilaterally and conjunctivae normal Neck supple, no JVD, thyroid normal and no carotid bruits General: trachea midline Resp normal respiratory effort, no retractions, no use of accessory muscles and clear to auscultation bilaterally Auscultation: Negative for rales, rhonchi or wheezes Cardio S1 normal heart sound, S2 normal heart sound, no murmurs, no rub and no gallops Cardio Narrative: Heart rate and rhythm is irregular GI normal to inspection, nondistended, normoactive bowel sounds, soft to palpation, non-tender and non-distended Extremity Right lower extremity is wrapped in surgical dressing and Matthew wrap, this was not removed for examination of the area Skin no rashes or lesions noted General Skin Exam: Patient's right lower leg/foot is wrapped with surgical dressing-this was not removed for examination of the area Neuro oriented x3, CN's II-XII intact bilaterally, moves all extremities and no focal motor deficits Sensorium / Orientation: awake and alert Speech: speech normal Psych affect normal Assessment & Plan Assessment/Plan (1) Acute osteomyelitis of right calcaneus: (2) Diabetic ulcer of right heel: PLAN: Plan 1. Neuropathic ulceration of the right heel-with osteomyelitis-postop day #2 excisional debridement down to and including level of bone right foot, incision of bone cortex right foot-patient will continue on present antibiotics-meropenem and vancomycin, ID is participating in his care #2 type 2 diabetes-patient's blood sugars will be monitored, sliding scale insulin will be administered as needed #3 paroxysmal atrial fibrillation-patient will remain on rate control medication, his Eliquis is being held #4 essential hypertension-patient's home medications will be continued #5 obstructive sleep apnea-patient is on BiPAP Total clinical time spent by myself addressing the patient's medical issues, reviewing all of his data, and collaborating with patient's care team: 35 minutes Charges/Coding Visit Charges Inpatient E&M: 13688 Subs Hosp L2
[2024-10-13 11:50] LABS: Bedside Glucose 242 mg/dL (74-106)
[2024-10-13] MEDS: Vancomycin Trough/Random Due 1 LAB MC (15:09)
[2024-10-13 15:34] LABS: Vancomycin, Random Level 17.6 ug/mL (0.0-15.0)
[2024-10-13 15:41] VITALS: BP 138/77; PULSE 73; RESP 16; TEMP 37.1; O2SAT 100
--- NOTE | 2024-10-13 15:41 | PCM.RX.CS ---
Consult Antibiotic Management Pharmacy has been consulted to manage selected antibiotic: Vancomycin Type of Intervention Type of Consult: Follow-up Suspected Infection Suspected Infection: Skin/Soft tissue Prior Doses of Antibiotics Prior Doses of Antibiotics Received/Current Regimen: Vancomycin 2000 mg Q12H last dose given 10/12 @ 1538 Labs Labs: Sodium 136 mmol/L (133-145) 10/10/24 06:13 Potassium 4.2 mmol/L (3.3-5.1) 10/10/24 06:13 Chloride 98 mmol/L (98-108) 10/10/24 06:13 Carbon Dioxide 27.0 mmol/L (21.0-32.0) 10/10/24 06:13 Anion Gap 11 (5-15) 10/10/24 06:13 BUN 8 mg/dL (4-19) 10/10/24 06:13 Creatinine 0.64 mg/dL (0.70-1.20) L 10/13/24 02:30 Est GFR (MDRD) Non-Af 102 (>60) 10/13/24 02:30 BUN/Creatinine Ratio 12.0 RATIO (10-20) 10/10/24 06:13 Glucose 254 mg/dL (70-99) H 10/10/24 06:13 Vancomycin Trough 23.8 ug/mL (5.0-15.0) H 10/13/24 02:30 Random Vancomycin 17.6 ug/mL (0.0-15.0) H 10/13/24 14:17 Microbiology Microbiology: Microbiology 10/11/24 Unknown Wound - Heel Right Gram Stain - Final 10/11/24 Unknown Wound - Heel Right Wound Culture - Preliminary Mixed Culture 10/11/24 Unknown Wound - Heel Right Anaerobic Culture - Preliminary 10/11/24 13:19 Wound - Heel Right Gram Stain - Final 10/11/24 13:19 Wound - Heel Right Wound Culture - Preliminary No growth-Final to follow 10/11/24 13:19 Wound - Heel Right Anaerobic Culture - Preliminary No growth in 48 hours. 10/11/24 13:22 Wound - Heel Right Gram Stain - Final 10/11/24 13:22 Wound - Heel Right Wound Culture - Preliminary No growth-Final to follow 10/11/24 13:22 Wound - Heel Right Anaerobic Culture - Preliminary No growth in 48 hours. 10/09/24 15:00 Wound - Right Foot Gram Stain - Final 10/09/24 15:00 Wound - Right Foot Wound Culture - Final Proteus sp. Enterococcus faecalis 10/09/24 15:00 Wound - Right Foot Anaerobic Culture - Final Bacteroides thetaiotaomicron Clostridium ramosum 10/09/24 13:59 Blood Culture (Wb) - Anticubital Left Blood Culture - Final Coag Negative Staph 10/09/24 13:40 Blood Culture (Wb) - Anticubital Left Blood Culture - Final Staphylococcus epidermidis Dosing Weight Weight used for dosin kg Estimated Creatinine Clearance Estimated Creatinine Clearance: ~ 126 Pharmacy Plan for Drug Dosing Pharmacy Plan for Drug Dosing: Vancomycin random level = 17.6, resume dosing with 1500 mg Q12H Pharmacy Service will continue to monitor and adjust dosing as required. Follow-Up Labs Follow-Up Labs: Trough: Vancomycin Date/Time Labs Ordered Labs to be done on [date and time ordered]: 10/15/24 @ 0339
[2024-10-13] MEDS: Vancomycin HCl 1,500 MG in 0.9% Normal Saline (500mL Bag) 500 ML 250 MG IV (16:54)
[2024-10-13 17:18] LABS: Bedside Glucose 297 mg/dL (74-106)
[2024-10-13 21:30] VITALS: BP 172/101; PULSE 57; RESP 16; TEMP 35.7; O2SAT 95
[2024-10-13] MEDS: Losartan Potassium 100 MG Tablet PO (21:40)
[2024-10-13] MEDS: Gabapentin 800 MG Tablet PO (21:41)
[2024-10-13 21:42] VITALS: PULSE 55
[2024-10-13] MEDS: amLODIPine 5 MG Tablet PO (21:43)
[2024-10-13] MEDS: Insulin Glargine-YFGN 100 UNIT/ML Pen 10 UNIT SC (21:43)
[2024-10-13 22:46] LABS: Bedside Glucose 260 mg/dL (74-106)
[2024-10-14] MEDS: Vancomycin HCl 1,500 MG in 0.9% Normal Saline (500mL Bag) 500 ML 250 MG IV ×2 (03:44→16:10)
[2024-10-14 03:52] VITALS: BP 109/45; PULSE 50; RESP 14; TEMP 35.7; O2SAT 99
[2024-10-14] MEDS: Meropenem 1 GM in 0.9% Normal Saline (100mL MB+) 100 ML IV ×3 (05:28→23:05)
[2024-10-14] MEDS: Nystatin Powder 15gm Bottle 1 APPLIC TOPICAL ×3 (05:28→22:05)
[2024-10-14] MEDS: Insulin Lispro 100 UNIT/ML INSULN.PEN SC ×4 (06:36→22:06)
[2024-10-14 07:05] LABS: Bedside Glucose 178 mg/dL (74-106)
[2024-10-14 07:43] VITALS: BP 150/81; PULSE 51; RESP 18; TEMP 36.2; O2SAT 99
[2024-10-14] MEDS: Menthol/Lanolin/Calamine/Znox 113 GM Tube 1 APPLIC TOPICAL ×2 (07:49→22:05)
[2024-10-14] MEDS: Gabapentin 800 MG Tablet PO ×2 (07:55→23:05)
[2024-10-14] MEDS: Acetaminophen 325 MG Tablet 650 MG PO ×2 (07:55→20:40)
[2024-10-14 10:23] VITALS: PULSE 62
[2024-10-14] MEDS: Metoprolol Tartrate 50 MG Tablet PO ×2 (10:23→22:05)
[2024-10-14 10:49] LABS: Bedside Glucose 279 mg/dL (74-106)
[2024-10-14 14:10] VITALS: BP 115/69; PULSE 70; RESP 18; TEMP 36.1; O2SAT 98
[2024-10-14] MEDS: 0.9% Normal Saline (100mL Bag) 100 ML 15 ML IV ×2 (14:14→21:57)
--- NOTE | 2024-10-14 15:09 | PCM.PN.HOSP ---
Reason for Visit Reason for Visit: Diagnoses Other staphylococcus as the cause of diseases classified elsewhere (10/09/24) Type 2 diabetes mellitus with diabetic polyneuropathy (10/09/24) Type 2 diabetes mellitus with foot ulcer (10/09/24) Non-pressure chronic ulcer of right heel and midfoot with unspecified severity (10/09/24) Non-pressure chronic ulcer of other part of right foot with necrosis of bone (10/09/24) Other acute osteomyelitis, right ankle and foot (10/09/24) Bacteremia (10/09/24) Subjective Subjective Patient was seen and examined today, he is due to undergo surgery tomorrow by podiatry. Patient complains of overall weakness today Objective Data Objective Data Vital Signs: Vital Signs Temp Pulse Resp BP Pulse Ox O2 Del Method FiO2 97.0 F L 70 18 115/69 98 Room Air 30 10/14/24 14:10 10/14/24 14:10 10/14/24 14:10 10/14/24 14:10 10/14/24 14:10 10/14/24 14:10 10/11/24 11:32 Oxygen Delivery Method Room Air Weight: 157.306 kg Body Mass Index (BMI) 52.7 Intake & Output: Intake and Output for Last 24 Hours 10/12/24 10/13/24 10/14/24 23:59 23:59 23:59 Intake Total 3389.3 / 3389.3 890 / 890 1570 / 1570 Output Total 1900 / 1900 950 / 950 Balance 1489.3 / 1489.3 890 / 890 620 / 620 Lab / Micro Data 10/10/24 06:13 10/13/24 02:30 Labs: Laboratory Results - last 24 hr 10/13/24 14:17: Random Vancomycin 17.6 H 10/13/24 16:49: POC Glucose 297 H 10/13/24 21:38: POC Glucose 260 H 10/14/24 06:37: POC Glucose 178 H 10/14/24 10:21: POC Glucose 279 H Micro: Microbiology 10/11/24 13:22 Wound - Heel Right Gram Stain - Final 10/11/24 13:22 Wound - Heel Right Wound Culture - Preliminary Gram positive organism 10/11/24 13:22 Wound - Heel Right Anaerobic Culture - Preliminary No growth in 48 hours. 10/11/24 13:19 Wound - Heel Right Gram Stain - Final 10/11/24 13:19 Wound - Heel Right Wound Culture - Final No growth aerobically. 10/11/24 13:19 Wound - Heel Right Anaerobic Culture - Preliminary No growth in 48 hours. 10/11/24 Unknown Wound - Heel Right Gram Stain - Final 10/11/24 Unknown Wound - Heel Right Wound Culture - Final Enterococcus faecalis Streptococcus mitis/ oralis Proteus penneri Morganella morganii sp sibonii 10/09/24 15:00 Wound - Right Foot Gram Stain - Final 10/09/24 15:00 Wound - Right Foot Wound Culture - Final Proteus sp. Enterococcus faecalis 10/09/24 15:00 Wound - Right Foot Anaerobic Culture - Final Bacteroides thetaiotaomicron Clostridium ramosum 10/09/24 13:59 Blood Culture (Wb) - Anticubital Left Blood Culture - Final Coag Negative Staph 10/09/24 13:40 Blood Culture (Wb) - Anticubital Left Blood Culture - Final Staphylococcus epidermidis Physical Exam Narrative alert, oriented x3 and no apparent distress Constitutional Narrative: Patient has class III obesity General Appearance: cooperative, well kempt and well developed Orientation / Consciousness: awake, oriented to person, oriented to place and oriented to time HEENT normocephalic, head/scalp atraumatic and moist oral mucous membranes Eyes PERRL, EOMs intact bilaterally and conjunctivae normal Neck supple, no JVD, thyroid normal and no carotid bruits General: trachea midline Resp normal respiratory effort, no retractions, no use of accessory muscles and clear to auscultation bilaterally Auscultation: Negative for rales, rhonchi or wheezes Cardio S1 normal heart sound, S2 normal heart sound, no murmurs, no rub and no gallops Cardio Narrative: Heart rate and rhythm is irregular GI normal to inspection, nondistended, normoactive bowel sounds, soft to palpation, non-tender and non-distended Extremity Right lower extremity is wrapped in surgical dressing and Matthew wrap, this was not removed for examination of the area Skin no rashes or lesions noted General Skin Exam: Patient's right lower leg/foot is wrapped with surgical dressing-this was not removed for examination of the area Neuro oriented x3, CN's II-XII intact bilaterally, moves all extremities and no focal motor deficits Sensorium / Orientation: awake and alert Speech: speech normal Psych affect normal Assessment & Plan Assessment/Plan (1) Acute osteomyelitis of right calcaneus: (2) Diabetic ulcer of right heel: PLAN: Plan 1. Neuropathic ulceration of the right heel-with osteomyelitis-postop day #3 excisional debridement down to and including level of bone right foot, incision of bone cortex right foot-patient will continue on present antibiotics-meropenem and vancomycin, ID is participating in his care. Patient will undergo surgery again on 10/15/2024 for insertion of a cage around his right foot to prevent weightbearing. #2 type 2 diabetes-patient's blood sugars will be monitored, sliding scale insulin will be administered as needed #3 paroxysmal atrial fibrillation-patient will remain on rate control medication, his Eliquis is being held #4 essential hypertension-patient's home medications will be continued #5 obstructive sleep apnea-patient is on BiPAP Total clinical time spent by myself addressing the patient's medical issues, reviewing all of his data, and collaborating with patient's care team: 35 minutes Charges/Coding Visit Charges Inpatient E&M: 56154 Subs Hosp L2
[2024-10-14 16:36] LABS: Bedside Glucose 250 mg/dL (74-106)
[2024-10-14 21:42] VITALS: BP 128/75; PULSE 67; RESP 18; TEMP 36.4; O2SAT 97
[2024-10-14] MEDS: 0.9% Saline Lock 10 ML Syringe IV (22:04)
[2024-10-14] MEDS: amLODIPine 5 MG Tablet PO (22:04)
[2024-10-14] MEDS: Losartan Potassium 100 MG Tablet PO (22:04)
[2024-10-14 22:05] VITALS: PULSE 67
[2024-10-14] MEDS: Insulin Glargine-YFGN 100 UNIT/ML Pen 10 UNIT SC (22:05)
--- NOTE | 2024-10-14 23:04 | NURSING ---
Patient refusing to use bsc. Wants to go into the bathroom. Asked his nurse if he can have a wheelchair. Explained he cannot walk on his foot to be non weight bearing. States if he does not get a wheel chair he will walk into the bathroom on his own.
[2024-10-14 23:18] LABS: Bedside Glucose 260 mg/dL (74-106)
[2024-10-15] VITALS (19 sets, daily range): BP systolic 138–171; BP diastolic 68–99; PULSE 66–88; RESP 10–18; TEMP 36–36.8; O2SAT 78–98
[2024-10-15 03:49] LABS: Absolute Lymphocyte Count 1.38 X10^3/uL (0.83-4.51); Absolute Neutrophil Count 6.6 X10^3/uL (2.0-7.7); Basophil# 0.05 X10^3/uL; Basophil% 0.6 % (0-1); Eosinophil# 0.16 X10^3/uL; Eosinophils% 1.8 % (0-5); Hematocrit 33.9 % (40-54); Hemoglobin 11.4 g/dL (13.0-16.5); Lymphocyte # 1.38 X10^3/ul (0.83-4.51); Mean Corp Hgb Conc 33.6 g/dL (32-36); Mean Corpuscular Volume 80.3 fL (80-94); Mean Platelet Vol. 9.4 fl (6.2-12.0); Monocyte# 0.39 X10^3/uL; Monocyte% 4.5 % (0-10); NRBC Flagged by Analyzer 0 % (0-5); Neutrophil # 6.62 X10^3/uL (2.7-7.7); Neutrophil % 76.5 % (47-70); Platelet Count 248 K/mm3 (150-450); RBC Distribution Width SD 36.9 fl (35.1-43.9); Red Blood Count 4.22 M/mm3 (4.6-6.2); White Blood Count 8.7 K/mm3 (4.4-11.0)
[2024-10-15 04:11] LABS: Anion Gap 8 (5-15); BUN 11 mg/dL (4-19); BUN/Creat Ratio 19.4 RATIO (10-20); Calcium,Total 8.9 mg/dL (7.6-11.0); Carbon Dioxide 26.1 mmol/L (21.0-32.0); Chloride 101 mmol/L (98-108); Creatinine, Serum 0.58 mg/dL (0.70-1.20); EST Glomerular Filtration Rate 105 (>60); Estimated Creatinine Clearance 126.34 ml/min (50-250); Glucose 260 mg/dL (70-99); Potassium 4.5 mmol/L (3.3-5.1); Sodium Level 136 mmol/L (133-145)
[2024-10-15 04:33] LABS: Vancomycin, Trough Level 21.7 ug/mL (5.0-15.0)
--- NOTE | 2024-10-15 04:47 | PCM.RX.CS ---
Consult Antibiotic Management Pharmacy has been consulted to manage selected antibiotic: Vancomycin Type of Intervention Type of Consult: Follow-up Suspected Infection Suspected Infection: Skin/Soft tissue Labs Labs: Sodium 136 mmol/L (133-145) 10/15/24 03:21 Potassium 4.5 mmol/L (3.3-5.1) 10/15/24 03:21 Chloride 101 mmol/L (98-108) 10/15/24 03:21 Carbon Dioxide 26.1 mmol/L (21.0-32.0) 10/15/24 03:21 Anion Gap 8 (5-15) 10/15/24 03:21 BUN 11 mg/dL (4-19) 10/15/24 03:21 Creatinine 0.58 mg/dL (0.70-1.20) L 10/15/24 03:21 Est GFR (MDRD) Non-Af 105 (>60) 10/15/24 03:21 BUN/Creatinine Ratio 19.4 RATIO (10-20) 10/15/24 03:21 Glucose 260 mg/dL (70-99) H 10/15/24 03:21 Vancomycin Trough 21.7 ug/mL (5.0-15.0) H 10/15/24 03:21 Random Vancomycin 17.6 ug/mL (0.0-15.0) H 10/13/24 14:17 Microbiology Microbiology: Microbiology 10/11/24 13:22 Wound - Heel Right Gram Stain - Final 10/11/24 13:22 Wound - Heel Right Wound Culture - Preliminary Gram positive organism 10/11/24 13:22 Wound - Heel Right Anaerobic Culture - Preliminary No growth in 48 hours. 10/11/24 13:19 Wound - Heel Right Gram Stain - Final 10/11/24 13:19 Wound - Heel Right Wound Culture - Final No growth aerobically. 10/11/24 13:19 Wound - Heel Right Anaerobic Culture - Preliminary No growth in 48 hours. 10/11/24 Unknown Wound - Heel Right Gram Stain - Final 10/11/24 Unknown Wound - Heel Right Wound Culture - Final Enterococcus faecalis Streptococcus mitis/ oralis Proteus penneri Morganella morganii sp sibonii 10/09/24 15:00 Wound - Right Foot Gram Stain - Final 10/09/24 15:00 Wound - Right Foot Wound Culture - Final Proteus sp. Enterococcus faecalis 10/09/24 15:00 Wound - Right Foot Anaerobic Culture - Final Bacteroides thetaiotaomicron Clostridium ramosum 10/09/24 13:59 Blood Culture (Wb) - Anticubital Left Blood Culture - Final Coag Negative Staph 10/09/24 13:40 Blood Culture (Wb) - Anticubital Left Blood Culture - Final Staphylococcus epidermidis Dosing Weight Weight used for dosin kg Estimated Creatinine Clearance Estimated Creatinine Clearance: 169 Goal Trough Goal Trough: 15-20 mcg/mL Pharmacy Plan for Drug Dosing Pharmacy Plan for Drug Dosing: Vancomycin trough level of 21.7, drawn 11.1hrs post-dose, was slightly above the target range of 15-20. Since renal function is improving (SCr to 0.58), will continue dosing at 1500mg q12h and will draw another trough level in two days. Pharmacy Service will continue to monitor and adjust dosing as required. Follow-Up Labs Follow-Up Labs: Trough: Vancomycin Date/Time Labs Ordered Labs to be done on [date and time ordered]: 10/17/24 @[id number]
[2024-10-15] MEDS: Vancomycin HCl 1,500 MG in 0.9% Normal Saline (500mL Bag) 500 ML 250 MG IV ×2 (04:52→17:38)
[2024-10-15] MEDS: Meropenem 1 GM in 0.9% Normal Saline (100mL MB+) 100 ML IV ×3 (06:00→22:09)
[2024-10-15 06:57] LABS: Bedside Glucose 202 mg/dL (74-106)
--- NOTE | 2024-10-15 07:02 | NURSING ---
pt went down to OR for surgery w/ dr Garcia at this time.
--- NOTE | 2024-10-15 07:12 | PCM.PRE.AN2 ---
ASA Classification* ASA Classification ASA Classification: 3 Assessment & Plan Anesthesia* Anesthesia Assessment Anesthesia Assessment: Discussed sedation and/or anesthesia options, risks, benefits, and alternatives with patient/parents/legal guardian/POA. Questions invited. The patient/parents/legal guardian/POA seems to understand and agrees to proceed with anesthesia plan. Reviewed the physical assessment, medical history, allergy history and patient home medications list prior to surgery/procedure/anesthetic and documented any changes. Performed airway and anesthesia risk assessments. Anesthesia Type Anesthesia Type: General Anesthesia Focused Assessment* Temperature: 97.7 F Pulse Rate: 88 Blood Pressure: 163/84 Respiratory Rate: 18 Pulse Ox: 97 Fraction of Inspired Oxygen (FIO2): 30 Airway Assessment Mouth opens: >3 cm Mallampati Score: II Focused Labs Anesthesia Preop lab: CBC WBC 8.7 K/mm3 (4.4-11.0) 10/15/24 03:21 10/15/24 RBC 4.22 M/mm3 (4.6-6.2) L 10/15/24 03:21 10/15/24 Hgb 11.4 g/dL (13.0-16.5) L 10/15/24 03:21 10/15/24 Hct 33.9 % (40-54) L 10/15/24 03:21 10/15/24 Plt Count 248 K/mm3 (150-450) 10/15/24 03:21 10/15/24 CHEMISTRY Potassium 4.5 mmol/L (3.3-5.1) 10/15/24 03:21 10/15/24 Sodium 136 mmol/L (133-145) 10/15/24 03:21 10/15/24 Magnesium 1.7 mg/dL (1.6-2.6) 06/19/24 14:54 06/19/24 BUN 11 mg/dL (4-19) 10/15/24 03:21 10/15/24 Creatinine 0.58 mg/dL (0.70-1.20) L 10/15/24 03:21 10/15/24 Glucose 260 mg/dL (70-99) H 10/15/24 03:21 10/15/24 POC Glucose 202 mg/dL (74-106) H 10/15/24 06:36 10/15/24 TSH 0.848 uIU/mL (0.300-4.200) 10/11/24 02:29 10/11/24 COAG PT 16.6 SECONDS (11.7-14.9) H 10/09/24 14:54 10/09/24 Pre-Assessment Diagnosis/Proposed Procedure Planned Operative Procedure(s): Right foot wound incision and drainage with wide debridement and bone biopsy/cultures. 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 When Was Last Pacemaker Check QUESTION #4 FULL TEXT: You/Your Family Experience fever (hyperthermia) with Anesthesia Last Oral Intake Last Oral intake: Last Oral Intake NPO since 00:00 10/11/24 10:20 Meds taken in AM with sips of Yes 10/11/24 11:41 water? Meds patient instructed to metoprolol 10/11/24 10:20 take am of surgery PONV PONV - flotation tank operator: PONV - flotation tank operator Female HX of Motion Sickness HX of N/V After Surgery Non-Smoker Duration of Surgery greater than 60 minutes Number of Risk Factors PONV Score Height & Weight Height & Weight: Anesthesia: Height & Weight Height 5 ft 8 in 10/13/24 14:34 Weight: 157.306 kg 10/13/24 14:34 Body Mass Index (BMI) 52.7 10/11/24 10:20 Respiratory Assessment Respiratory Assessment - flotation tank operator: Respiratory Tract Infection Hx - flotation tank operator Hx Respiratory Tract Infection No 10/14/24 20:23 STOP Sleep Apnea STOP Sleep Apnea - flotation tank operator: STOP Sleep Apnea - flotation tank operator Hx Hypertension Yes 10/10/24 12:54 Hx Sleep Apnea Yes 10/11/24 13:30 CPAP No 10/11/24 13:12 BIPAP Yes 10/09/24 16:40 Do you snore loudly (louder than talking or can be heard Do you often feel tired/ fatigued/ sleepy during daytime? Has anyone observed you stop breathing during sleep? STOP Results Positive 10/11/24 13:12 QUESTION #5 FULL TEXT : Do you snore loudly (louder than talking or can be heard through closed doors)? 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 Specify any problems Hx of Preganancy in last 3 N/A 10/09/24 16:40 Months Nurse Filling Out Transfusion FSTEINER 10/09/24 16:40 & Questions: Date: 10/09/24 10/09/24 16:40 Time: 16:42 10/09/24 16:40 Patient unable to answer at this time (ie. confused, unrespo /Reproduction History /Reproductive History - flotation tank operator: /Reproductive Hx- flotation tank operator Hx Now No 10/14/24 20:23 Gestational Age (in weeks): EDC: Hx Hx Para Hx Section SAB No 10/14/24 20:23 Active Medications Active Medications: Current Medications Generic Name Dose Route Start Last Admin Trade Name Freq PRN Reason Stop Dose Admin Acetaminophen 650 mg 10/09/24 17:07 10/14/24 20:40 Acetaminophen 325 Mg Tablet PO 650 mg Q6H PRN PRN Administration Pain 1-10 Or Fever >100.7 Albuterol Sulfate 2.5 mg 10/09/24 17:07 Albuterol 2.5 Mg/3 Ml Vial.Neb. INHALATION Q2H PRN PRN SOB &/OR WHEEZING Amlodipine Besylate 5 mg 10/09/24 22:00 10/14/24 22:04 Amlodipine 5 Mg Tablet PO 5 mg QHS [facility] Administration Protocol Calamine/Phenol 1 applic 10/09/24 22:00 10/14/24 22:05 Menthol/Lanolin/Calamine/Znox 113 Gm Tube TOPICAL 1 applic BID JANNETTE Administration Protocol Gabapentin 800 mg 10/10/24 11:22 10/14/24 23:05 Gabapentin 800 Mg Tablet PO 800 mg TID PRN Administration Pain Score 1-10 Glucagon 1 mg 10/09/24 17:07 Glucagon 1 Mg/Ml Syringe IM X1 PRN HYPOGLYCEMIA Protocol Sodium Chloride 100 mls @ 15 mls/hr 10/09/24 16:48 10/14/24 23:47 IV 0 mls/hr .Q6H40M PRN Infusion Saline Flush Sodium Chloride 100 mls @ 15 mls/hr 10/09/24 16:48 IV .Q6H40M PRN Additional IVPB Infusion Dextrose 250 mls @ 0 mls/hr 10/09/24 17:07 Dextrose 10%-Water IV .Q0M PRN HYPOGLYCEMIA Protocol As Directed Vancomycin IV-PHARMACY TO DOSE 500 mls @ 250 mls/hr 10/09/24 17:07 1 each/ Sodium Chloride IV X1 PRN Rx to Dose Protocol Meropenem 1 gm/ Sodium 120 mls @ 33 mls/hr 10/09/24 22:00 10/15/24 03:23 Chloride IV Infused Q8 JANNETTE Infusion Vancomycin HCl 1,500 mg/ 530 mls @ 250 mls/hr 10/13/24 16:00 10/15/24 07:00 Sodium Chloride IV Infused Q12H JANNETTE Infusion Insulin Glargine 10 unit 10/09/24 22:00 10/14/24 22:05 Insulin Glargine-Yfgn 100 Unit/Ml Pen SC 10 unit QHS JANNETTE Administration Insulin Human Lispro 0 unit 10/09/24 17:07 10/15/24 06:37 Insulin Lispro 100 Unit/Ml Insuln.Pen SC Not Given ACHS JANNETTE Protocol Losartan Potassium 100 mg 10/09/24 22:00 10/14/24 22:04 Losartan Potassium 100 Mg Tablet PO 100 mg QHS JANNETTE Administration Protocol Melatonin 3 mg 10/09/24 17:07 Melatonin 3 Mg Tablet PO QHS PRN PRN INSOMNIA Metoprolol Tartrate 50 mg 10/09/24 22:00 10/14/24 22:05 Metoprolol Tartrate 50 Mg Tablet PO 50 mg BID JANNETTE Administration Protocol Nystatin 1 applic 10/09/24 22:00 10/15/24 06:36 Nystatin Powder 15gm Bottle TOPICAL Not Given TID [facility] Protocol Ondansetron HCl 4 mg 10/09/24 17:07 Ondansetron 4 Mg/2 Ml Vial IV Q8H PRN PRN NAUSEA/VOMITING Oxycodone HCl 5 mg 10/09/24 17:07 10/13/24 09:06 Oxycodone 5 Mg Tablet PO 5 mg Q4H PRN PRN Administration Pain Score 4-10 Senna/Docusate Sodium 2 tablet 10/09/24 17:07 Senna/Docusate Sodium 1 Tablet PO BID PRN PRN Constipation Sodium Chloride 10 - 40 ml 10/09/24 16:48 10/14/24 22:04 0.9% Saline Lock 10 Ml Syringe IV 10 ml UD PRN Administration SALINE FLUSH Vancomycin Protocol 1 lab 10/17/24 02:30 Vancomycin Trough/Random Due [facility] 10/17/24 04:30 DAILY [facility] PFSH Medical History Kidney stones Chronic cellulitis Streptococcal bacteremia Hyperglycemia due to diabetes mellitus Chronic anticoagulation Fall Wears glasses Depression Anxiety Alcohol use History of ulceration Ambulates with cane Insulin dependent diabetes mellitus Arthritis Low iron Dietary restriction Former smoker Shortness of breath on exertion Leg cramps History of pain when walking History of edema Cardiology follow-up encounter History of echocardiogram Blackout Restless legs HTN (hypertension) Diabetes BiPAP (biphasic positive airway pressure) dependence Atrial fibrillation Hyperlipidemia Thyroid nodule Lower extremity neuropathy Essential (primary) hypertension Type 2 diabetes mellitus Morbid obesity Obstructive sleep apnea New onset atrial fibrillation (10/01/20) Pickwickian syndrome Bilateral leg edema Home Medications ?Medication ?Instructions ?Recorded ?Last Taken ?Type losartan 100 mg tablet 100 mg PO QHS Check with primary 04/04/14 10/08/24 History doctor metformin 1,000 mg tablet 1,000 mg PO BIDCM diabetes 04/04/14 10/09/24 History amlodipine 5 mg tablet 5 mg PO QHS BP 10/01/20 10/08/24 History eqyfaxws-sz-cybra 300 mcg-K 60 1 tablet PO DAILY supplemetn 10/01/20 05/21/23 History mcg-lycop 600 mcg-lutein 300 mcg tablet insulin glargine U-300 conc 300 25 unit subcut QHS diabetes 09/27/22 05/20/23 History unit/mL (3 mL) subcutaneous pen (Toujeo Max U-300 SoloStar) apixaban 5 mg tablet 5 mg PO BID blood thinner 11/29/22 10/09/24 History gabapentin 800 mg tablet 800 mg PO .COMPLEX PRN neuropathy 11/29/22 10/09/24 History pen needle, diabetic 32 gauge x #1,200 ea 05/23/23 Unknown Rx acetaminophen 500 mg tablet 1,000 mg PO TID 07/11/23 Unknown History (Tylenol Extra Strength) blood sugar diagnostic (OneTouch #10 ea 07/11/23 Unknown History Ultra Test strips) amoxicillin 875 mg-potassium 1 tab PO BID 10/09/24 10/09/24 History clavulanate 125 mg tablet metoprolol tartrate 50 mg tablet 50 mg PO BID blood pressure 10/09/24 10/11/24 History Allergy/AdvReac Type Severity Reaction Status Date / Time ampicillin Allergy Unknown Verified 10/09/24 12:49 peanut Allergy NEEDS Verified 10/09/24 12:49 FOLLOW-UP Penicillins Allergy Unknown Verified 10/09/24 12:49 Family History Mother Heart disease Diabetes Father Heart disease Cancer Surgical History History of amputation of toe History of wisdom tooth extraction Social History housing: apartment Smoking Status: Never smoker how long ago did patient quit smokin alcohol intake: never substance use type: does not use caffeine: Yes Review of Systems (Anesthesia) ROS Narrative System reviewed and no additional complaints, except as documented.
[2024-10-15] MEDS: Lactated Ringers 1,000 ML 15 ML IV (07:45)
--- NOTE | 2024-10-15 07:48 | PN_ITS ---
Subjective Subjective Patient seen bedside follow-up right foot wound. Planning repeat wound debridement with application of external fixation device. Patient has constitutional symptoms. Patient notes some fatigue this morning and is in poor mood. Patient initially confused about procedure being performed however discussion with his POA daughter Norma Seymour patient wishes to proceed. Objective Data Objective Data Vital Signs: Vital Signs Temp Pulse Resp BP Pulse Ox O2 Del Method FiO2 97.7 F L 88 18 163/84 H 97 Room Air 30 10/15/24 07:13 10/15/24 07:13 10/15/24 07:13 10/15/24 07:13 10/15/24 07:13 10/15/24 07:01 10/15/24 07:13 Oxygen Delivery Method Room Air Weight: 157.306 kg Body Mass Index (BMI) 52.7 Intake & Output: Intake and Output for Last 24 Hours 10/13/24 10/14/24 10/15/24 23:59 23:59 23:59 Intake Total 890 / 890 2547.5 / 2547.5 650 / 650 Output Total 950 / 1700 1000 / 1000 Balance 890 / 890 1597.5 / 847.5 -350 / -350 Lab / Micro Data 10/15/24 03:21 10/15/24 03:21 Labs: Laboratory Results - last 24 hr 10/14/24 10:21: POC Glucose 279 H 10/14/24 16:08: POC Glucose 250 H 10/14/24 21:58: POC Glucose 260 H 10/15/24 03:21: WBC 8.7, RBC 4.22 L, Hgb 11.4 L, Hct 33.9 L, MCV 80.3, MCH 27.0, MCHC 33.6, RDW Std Deviation 36.9, RDW Coeff of Jada 13.0, Plt Count 248, MPV 9.4, Immature Gran % (Auto) 0.600, Neut % (Auto) 76.5 H, Lymph % (Auto) 16.0 L, Morris % (Auto) 4.5, Eos % (Auto) 1.8, Baso % (Auto) 0.6, Absolute Neuts (auto) 6.6, Absolute Lymphs (auto) 1.38, Nucleated RBC % 0, Sodium 136, Potassium 4.5, Chloride 101, Carbon Dioxide 26.1, Anion Gap 8, BUN 11, Creatinine 0.58 L, Estim Creat Clear Calc 126.34, Est GFR (MDRD) Non-Af 105, BUN/Creatinine Ratio 19.4, G lucose 260 H, Calcium 8.9, Vancomycin Trough 21.7 H 10/15/24 06:36: POC Glucose 202 H Micro: Microbiology 10/11/24 13:22 Wound - Heel Right Gram Stain - Final 10/11/24 13:22 Wound - Heel Right Wound Culture - Preliminary Gram positive organism 10/11/24 13:22 Wound - Heel Right Anaerobic Culture - Preliminary No growth in 48 hours. 10/11/24 13:19 Wound - Heel Right Gram Stain - Final 10/11/24 13:19 Wound - Heel Right Wound Culture - Final No growth aerobically. 10/11/24 13:19 Wound - Heel Right Anaerobic Culture - Preliminary No growth in 48 hours. 10/11/24 Unknown Wound - Heel Right Gram Stain - Final 10/11/24 Unknown Wound - Heel Right Wound Culture - Final Enterococcus faecalis Streptococcus mitis/ oralis Proteus penneri Morganella morganii sp sibonii 10/09/24 15:00 Wound - Right Foot Gram Stain - Final 10/09/24 15:00 Wound - Right Foot Wound Culture - Final Proteus sp. Enterococcus faecalis 10/09/24 15:00 Wound - Right Foot Anaerobic Culture - Final Bacteroides thetaiotaomicron Clostridium ramosum 10/09/24 13:59 Blood Culture (Wb) - Anticubital Left Blood Culture - Final Coag Negative Staph 10/09/24 13:40 Blood Culture (Wb) - Anticubital Left Blood Culture - Final Staphylococcus epidermidis Physical Exam Narrative Neurovascular status unchanged. Dermatologic: Full-thickness wound to medial plantar right heel down to level of bone with stable granular base to JOREG A calcaneal rim. No acute signs of infection. Moderate serosanguineous drainage noted. Musculoskeletal: No gross deformity contributing to wound formation. Assessment & Plan Assessment/Plan (1) Acute osteomyelitis of right calcaneus: PLAN: Exam performed. Vital signs stable. Patient consented for right foot wound debridement excisional down to level of bone with application of external fixation device. All inherent risks benefits alternative treatments and plan of care discussed with patient in great detail. Plan is for patient to go to care home facility with wound VAC and external fixation device for prolonged nonweightbearing and IV antibiotics for right foot osteomyelitis Will proceed with excisional debridement right foot wound down to level of bone with application of external fixation device today. (2) Non-pressure chronic ulcer of other part of right foot with necrosis of bone:
--- NOTE | 2024-10-15 08:27 | RAD_ITS ---
PROCEDURE: CALCANEUS MIN 2 VIEWS 10/15/2024 REASON FOR EXAM: DEBRIDEMENT WOUND, HEEL, APPLICATION OF DELTA FRAME TECHNIQUE: Fluoro was provided COMPARISON: October 09, 2024 FINDINGS: Two views, 1.66 mGy, 38.2 seconds. A soft tissue defect is noted at the calcaneus. RAD/Calcaneus min 2 Views IMPRESSION: Fluoro was provided. Reading Location: [facility]
[2024-10-15] MEDS: Bupivacaine Mpf 0.5% 30 ML VIAL (09:13)
--- NOTE | 2024-10-15 09:24 | OP.PCM_ITS ---
Problems Associated Problem List Diagnoses (1) Acute osteomyelitis of right calcaneus: (2) Other acute osteomyelitis, right ankle and foot: (3) Non-pressure chronic ulcer of other part of right foot with necrosis of bone: Operative Report (Standard) Operative Information Date of Procedure: 10/15/24 Pre-Operative Diagnosis: 1) Right Calcaneal Osteomyelitis 2) Right chronic, non healing wound down to level of bone Post-Operative Diagnosis: same Surgery/Procedure Performed: 1) excisional debridement of wound down to and including level of bone teletypesetter monitor: Yes Media Services Coordinator: Traci Tasks completed by registered nurse first assistant: Opening, Closing, Opening & closing and Implanting device Type of Anesthesia: General RN Documented Start/Stop Times: Operation Date: 10/15/24 07:30 Case Time Into Pre-Op 10/15/24 07:10 Anesthesia Start 10/15/24 07:58 Into Room 10/15/24 07:58 Out of Pre-Op 10/15/24 07:58 Procedure Start 10/15/24 08:24 Procedure End 10/15/24 09:15 Procedure Start Time: 08:00 Procedure Stop Time: 09:20 Select all DRAINS/GRAFTS/IMPLANTS that apply: Implanted device Implanted device details: [place]by delta frame Estimated Blood Loss: 10cc Specimen collected: No Description of surgery: Patient brought back to the operating placed company in supine position on operating room table. Patient induced under general anesthesia. A well-padded right thigh tourniquet was applied to right lower extremity. Right lower extremity scrubbed prepped draped using typical aseptic fashion. Once cleared by anesthesia right lower extremity was elevated exsanguinated tourniquet was inflated to 300 mmHg. Procedure #1 excisional debridement right foot wound down to including level of bone predebridement the wound measured 6.0 x 4.5 x 2.0 cm with exposed calcaneus and stable granular base. Wound was debrided with bone curettes combination of rongeur's. Postdebridement was 6.1 x 4.6 x 2.1 cm. Wound was flushed with copious muscle normal sterile saline. Bone cultures taken post lavage with sterile none used bone rongeurs. Procedure #2 application of delta frame to offload heel wound with kickstand horseshoe 2 tibial Minh pins were applied these were fixated to a calcaneal transfixion pin using pin to bar construct. With the foot in slight distraction. Next a horseshoe was applied to act as a kickstand to offload the plantar calcaneal heel wound. These were all he applied using manufactures guidelines. No additional sagittal plane correction for the ankle joint was required in the construct was additionally stabilized with a crossing bar across the 2 tibial to calcaneal bars. Hemostasis obtained with compression electrocautery. Sites were dressed with Surgicel 4 x 4's Kerlix Matthew bandage. Tourniquet was let down after application of dressing. Patient was transported PACU vital signs stable vascular status intact all digits for further monitoring prior to transfer back to floor. No complications Calcaneal bone culture taken right heel Findings wound demonstrates clean healing improving granular base at this time. Plan will be transfer to senior living facility upon medical stabilization for receipt of 6 weeks IV antibiotics and advanced wound care and prolonged nonweightbearing to right lower extremity. Surgical Findings: as dictated above Complications Complications: No
--- NOTE | 2024-10-15 09:33 | PCM.POST.ANE ---
Anesthesia: Postop Eval I Current Vital Signs Temperature: 98.1 F Pulse Rate: 71 Blood Pressure: 171/83 Respiratory Rate: 16 Pulse Ox: 90 Oxygen Delivery Method: Nasal Cannula Oxygen Flow Rate (L/min): 4 Assessment Airway patent: Yes Spontaneous unlabored respirations: Yes Mental status: Awake and Calm nausea: No Vomiting: No Anesthesia Complication: No Fluid Hydration Crystalloid volume administer (ml): 600 Total IV fluid infused: 600 Progress Note Anesthesia document: Postop Eval 1 completed: Yes
--- NOTE | 2024-10-15 10:13 | POSTOPAN2_ITS ---
Anesthesia Postop Eval I Sum Postop Eval Completion status Anesthesia document: Postop Eval 1 completed: Yes Anesthesia Postop Eval I Summary Anesthesia Postop Eval I Summary: Anesthesia Postop Eval I: Assessment Summary Airway patent Yes 10/15/24 09:34 [email or web address] [email or web address] Spontaneous unlabored Yes 10/15/24 09:34 STRETCHER [email or web address] respirations Mental status Awake,Calm 10/15/24 09:34 [email or web address] [email or web address] nausea No 10/15/24 09:34 STRETCHER [email or web address] Vomiting No 10/15/24 09:34 STRETCHER [email or web address] Anesthesia Postop Eval I: Fluid Summary Crystalloid volume administer 600 10/15/24 09:34 [email or web address] (ml) Colloids volume administered ( ml) Blood Product volume administered (ml) Total IV fluid infused 600 10/15/24 09:34 [email or web address] [email or web address] Anesthesia Postop Eval I: Summary Notes Anesthesia Complication No 10/15/24 09:34 [email or web address] [email or web address] Anesthesia Complication Comment: Post-operative progress note Anesthesia: Postop Eval II Evaluation Mental status: Awake Pain Level: 1 nausea: No Vomiting: No
--- NOTE | 2024-10-15 10:13 | PCM.POSTANE2 ---
Anesthesia Postop Eval I Sum Postop Eval Completion status Anesthesia document: Postop Eval 1 completed: Yes Anesthesia Postop Eval I Summary Anesthesia Postop Eval I Summary: Anesthesia Postop Eval I: Assessment Summary Airway patent Yes 10/15/24 09:34 HEARING [email or web address] [email or web address] Spontaneous unlabored Yes 10/15/24 09:34 HEARING AID [email or web address] respirations Mental status Awake,Calm 10/15/24 09:34 HEARING AID [email or web address] nausea No 10/15/24 09:34 HEARING AID [email or web address] Vomiting No 10/15/24 09:34 HEARING AID [email or web address] Anesthesia Postop Eval I: Fluid Summary Crystalloid volume administer 600 10/15/24 09:34 HEARING AID [email or web address] (ml) Colloids volume administered ( ml) Blood Product volume administered (ml) Total IV fluid infused 600 10/15/24 09:34 HEARING AID [email or web address] Anesthesia Postop Eval I: Summary Notes Anesthesia Complication No 10/15/24 09:34 HEARING AID [email or web address] Anesthesia Complication Comment: Post-operative progress note Anesthesia: Postop Eval II Evaluation Mental status: Awake Pain Level: 1 nausea: No Vomiting: No
--- NOTE | 2024-10-15 10:14 | ANES.CONFIRM ---
Anesthesia: Confirm Documents Multiple Procedures on Account (2) Confirmed Documents: Yes
--- NOTE | 2024-10-15 11:11 | PCM.PN.HOSP ---
Reason for Visit Reason for Visit: Diagnoses Other staphylococcus as the cause of diseases classified elsewhere (10/09/24) Type 2 diabetes mellitus with diabetic polyneuropathy (10/09/24) Type 2 diabetes mellitus with foot ulcer (10/09/24) Non-pressure chronic ulcer of right heel and midfoot with unspecified severity (10/09/24) Non-pressure chronic ulcer of other part of right foot with necrosis of bone (10/09/24) Other acute osteomyelitis, right ankle and foot (10/09/24) Bacteremia (10/09/24) Subjective Subjective Saw patient at bedside this afternoon as he was not having his procedure done this morning. Patient was wearing his CPAP and taking a nap when I saw him. He did make appropriate eye contact with me with conversation and shook his head yes and no to questions for me. Reported only mild pain in the right lower extremity at this time. No other acute concerns currently. Objective Data Objective Data Vital Signs: Vital Signs Temp Pulse Resp BP Pulse Ox O2 Del Method O2 Flow Rate 97.4 F L 72 18 162/90 H 96 Nasal Cannula 3 10/15/24 10:54 10/15/24 10:54 10/15/24 10:54 10/15/24 10:54 10/15/24 10:54 10/15/24 10:54 10/15/24 10:54 FiO2 30 10/15/24 07:13 Oxygen Flow Rate (L/min) 3 Oxygen Delivery Method Nasal Cannula Weight: 157.306 kg Body Mass Index (BMI) 52.7 Intake & Output: Intake and Output for Last 24 Hours 10/13/24 10/14/24 10/15/24 23:59 23:59 23:59 Intake Total 890 / 890 2547.5 / 2547.5 770 / 770 Output Total 950 / 1700 1000 / 1000 Balance 890 / 890 1597.5 / 847.5 -230 / -230 Lab / Micro Data 10/15/24 03:21 10/15/24 03:21 Labs: Laboratory Results - last 24 hr 10/14/24 16:08: POC Glucose 250 H 10/14/24 21:58: POC Glucose 260 H 10/15/24 03:21: WBC 8.7, RBC 4.22 L, Hgb 11.4 L, Hct 33.9 L, MCV 80.3, MCH 27.0, MCHC 33.6, RDW Std Deviation 36.9, RDW Coeff of Jada 13.0, Plt Count 248, MPV 9.4, Immature Gran % (Auto) 0.600, Neut % (Auto) 76.5 H, Lymph % (Auto) 16.0 L, [place] % (Auto) 4.5, Eos % (Auto) 1.8, Baso % (Auto) 0.6, Absolute Neuts (auto) 6.6, Absolute Lymphs (auto) 1.38, Nucleated RBC % 0, Sodium 136, Potassium 4.5, Chloride 101, Carbon Dioxide 26.1, Anion Gap 8, BUN 11, Creatinine 0.58 L, Estim Creat Clear Calc 126.34, Est GFR (MDRD) Non-Af 105, BUN/Creatinine Ratio 19.4, Glucose 260 H, Calcium 8.9, Vancomycin Trough 21.7 H 10/15/24 06:36: POC Glucose 202 H Micro: Microbiology 10/11/24 Unknown Wound - Heel Right Gram Stain - Final 10/11/24 Unknown Wound - Heel Right Wound Culture - Final Enterococcus faecalis Streptococcus mitis/ oralis Proteus penneri Morganella morganii sp sibonii 10/11/24 Unknown Wound - Heel Right Anaerobic Culture - Preliminary 10/11/24 13:22 Wound - Heel Right Gram Stain - Final 10/11/24 13:22 Wound - Heel Right Wound Culture - Preliminary Gram positive organism 10/11/24 13:22 Wound - Heel Right Anaerobic Culture - Preliminary No growth in 48 hours. 10/11/24 13:19 Wound - Heel Right Gram Stain - Final 10/11/24 13:19 Wound - Heel Right Wound Culture - Final No growth aerobically. 10/11/24 13:19 Wound - Heel Right Anaerobic Culture - Preliminary No growth in 48 hours. 10/09/24 15:00 Wound - Right Foot Gram Stain - Final 10/09/24 15:00 Wound - Right Foot Wound Culture - Final Proteus sp. Enterococcus faecalis 10/09/24 15:00 Wound - Right Foot Anaerobic Culture - Final Bacteroides thetaiotaomicron Clostridium ramosum 10/09/24 13:59 Blood Culture (Wb) - Anticubital Left Blood Culture - Final Coag Negative Staph 10/09/24 13:40 Blood Culture (Wb) - Anticubital Left Blood Culture - Final Staphylococcus epidermidis Physical Exam Const alert, oriented x3 and no apparent distress Constitutional Narrative: Elderly male, class III obesity, fatigued appearing, otherwise sitting back comfortably in bed and in no acute distress. General Appearance: cooperative and comfortable HEENT normocephalic, head/scalp atraumatic, hearing grossly normal bilaterally, nasal mucous membranes and turbinates normal and moist oral mucous membranes Eyes PERRL, EOMs intact bilaterally and conjunctivae normal Neck full ROM Chest inspection of chest normal Resp normal respiratory effort and no use of accessory muscles Resp Narrative: CPAP in place for nap and patient breathing comfortably with this with good air movement bilaterally throughout. Cardio regular rate, regular rhythm, no murmurs and peripheral pulses 2+ throughout GI normal to inspection, nondistended, normoactive bowel sounds, soft to palpation, non-tender and non-distended Back/Spine normal ROM Extremity Extremity Narrative: Right lower extremity wrapped and with external fixator in place. Psych mental status grossly normal Mood & Affect: depressed Assessment & Plan Assessment/Plan (1) Acute osteomyelitis of right calcaneus: PLAN: Plan Patient is a 69-year-old male who presented to [facility] ED on 10/09/2024 with worsening right heel wound. 1. Right heel diabetic ulcer with osteomyelitis ? Podiatry, ID, wound care and PT/OT/case management following. S/p excisional debridement down to bone on 10/11 with podiatry. Wound culture positive for Proteus, Enterococcus, Morganella, strep and anaerobes. Blood cultures positive for MRSE. Per ID, PICC line placed and plan is to continue vancomycin and meropenem for 6 more weeks on discharge. S/p repeat excisional debridement of wound and external fixator placement for nonweightbearing status with podiatry on 10/15. Patient accepted at SNF and has bed available once medically ready for discharge. Will follow-up with podiatry, hopeful patient will be medically ready for discharge tomorrow. 2. Poorly controlled type 2 diabetes mellitus with neuropathy ? A1c 10.9% on admit. A1c's have consistently been in the 9-11 range over the past few years. Continue treatment with insulin glargine 10 units at night and sliding scale insulin with meals, adjust as needed. Continue home gabapentin. 3. Paroxysmal A-fib ? Patient in rate controlled A-fib on admission. Continue home Lopressor. Home Eliquis on hold for 10/15 procedure, resume when able. 4. Hypertension ? Continue home amlodipine and losartan. 5. Class III obesity with TDOD ? BMI 52 on admit. Continue home BiPAP at night and with naps. Encouraged weight loss. Complicates hospital course, care and prognosis. DVT prophylaxis: SCDs CODE STATUS: Full code, verified Expected disposition: SNF, 1 to 2 days Total clinical time spent by myself addressing the patient's medical issues, reviewing all the data, and collaborating with patient's care team: 35 minutes. Charges/Coding Visit Charges Inpatient E&M: 81133 Subs Hosp L2
[2024-10-15] MEDS: Insulin Lispro 100 UNIT/ML INSULN.PEN SC ×3 (12:31→22:34)
[2024-10-15 12:52] LABS: Bedside Glucose 201 mg/dL (74-106)
--- NOTE | 2024-10-15 13:50 | PCM.PN.ID ---
Physical Exam Narrative Now s/p OR for external fixator. Feeling ok, no fever, pain controlled. Const alert and no apparent distress General Appearance: cooperative Resp normal air movement and clear to auscultation bilaterally Cardio regular rate and regular rhythm GI soft to palpation, non-tender and non-distended Extremity Extremity Narrative: R foot wrapped ID ID: Route of nutrition/ use of supplements: [] Nutritional Intake: [] IV Site: [] Franks Catheter: [] Assessment & Plan Assessment/Plan (1) Acute osteomyelitis of right calcaneus: PLAN: R heel osteo with associated MRSE bacteremia - wound cx with proteus, enterococcus, morganella, strep, anaerobes. Taken to OR 10/11/[address] Mancini for I&D. Picc placed. On vanc/david. Plan will be for 6 weeks iv abx. Reports anaphylaxis with PCN as a child, may have taken keflex without issue. Will follow (2) Type 2 diabetes mellitus with diabetic polyneuropathy: QUALIFIERS: Diabetes mellitus terminal supervisor insulin use: unspecified [facility] insulin use status Qualified Code(s): E11.42 - Type 2 diabetes mellitus with diabetic polyneuropathy (3) Bacteremia due to coagulase-negative Staphylococcus:
[2024-10-15] MEDS: Metoprolol Tartrate 50 MG Tablet PO ×2 (13:56→22:12)
[2024-10-15] MEDS: Acetaminophen 325 MG Tablet 650 MG PO (13:56)
[2024-10-15 16:21] LABS: Bedside Glucose 195 mg/dL (74-106)
[2024-10-15] MEDS: amLODIPine 5 MG Tablet PO (22:11)
[2024-10-15] MEDS: Losartan Potassium 100 MG Tablet PO (22:12)
[2024-10-15] MEDS: Insulin Glargine-YFGN 100 UNIT/ML Pen 10 UNIT SC (22:32)
[2024-10-15] MEDS: Nystatin Powder 15gm Bottle 1 APPLIC TOPICAL (22:36)
[2024-10-15 22:58] LABS: Bedside Glucose 181 mg/dL (74-106)
[2024-10-16] VITALS (23 sets, daily range): BP systolic 128–187; BP diastolic 73–115; PULSE 67–87; RESP 15–21; TEMP 36.2–36.7; O2SAT 95–100; BMI 52.7
[2024-10-16] MEDS: Vancomycin HCl 1,500 MG in 0.9% Normal Saline (500mL Bag) 500 ML 250 MG IV ×2 (04:50→17:39)
[2024-10-16] MEDS: Insulin Lispro 100 UNIT/ML INSULN.PEN SC ×2 (06:37→11:49)
[2024-10-16] MEDS: Nystatin Powder 15gm Bottle 1 APPLIC TOPICAL (06:39)
[2024-10-16] MEDS: Meropenem 1 GM in 0.9% Normal Saline (100mL MB+) 100 ML IV ×2 (07:05→15:40)
[2024-10-16 07:25] LABS: Bedside Glucose 206 mg/dL (74-106)
--- NOTE | 2024-10-16 09:45 | PN.ID_ITS ---
Physical Exam Narrative Sleeping this AM, no fever Const no apparent distress Resp normal air movement and clear to auscultation bilaterally Cardio regular rate and regular rhythm GI soft to palpation, non-tender and non-distended Skin no rashes or lesions noted ID ID: Route of nutrition/ use of supplements: [] Nutritional Intake: [] IV Site: [] Franks Catheter: [] Assessment & Plan Assessment/Plan (1) Acute osteomyelitis of right calcaneus: PLAN: R heel osteo with associated MRSE bacteremia - wound cx with proteus, enterococcus, morganella, strep, anaerobes. Taken to OR 10/11/[address] Mancini for I&D. Picc placed. On vanc/david. Plan will be for 6 weeks iv abx, will order picc for vanc/david stop date 11/22/24 with weekly labs. Reports anaphylaxis with PCN as a child, may have taken keflex without issue. Will follow, ID followup in 2 weeks, d/w registered nurse hh case manager (2) Type 2 diabetes mellitus with diabetic polyneuropathy: QUALIFIERS: Diabetes mellitus extermination inspector insulin use: unspecified [facility] insulin use status Qualified Code(s): E11.42 - Type 2 diabetes mellitus with diabetic polyneuropathy (3) Bacteremia due to coagulase-negative Staphylococcus:
[2024-10-16] MEDS: Menthol/Lanolin/Calamine/Znox 113 GM Tube 1 APPLIC TOPICAL (10:52)
[2024-10-16] MEDS: Metoprolol Tartrate 50 MG Tablet PO (10:52)
--- NOTE | 2024-10-16 11:15 | PCM.TXEXTCAR ---
Diet Diet Order/Speech Therapy: 10/15/24 11:29 Diet: Consistent Carb - Calorie Controlled Dietary Modifications:: Cardiac / Heart Healthy Type of Dietary Supplement:: Yossi Diet Comments: Yossi w/ B & D How many daily calories?: 1999 calorie Routine Orders/Code Status Code Status: Full Code DC O2, CPAP, BIPAP needs Home O2 Discharge instructions: No Wound(s) right foot: Wound Type: Neuropathic/Diabetic Foot Ulcer right heel: Wound Type: Surgical Incision Dressing Change: betadine gauze Therapies Weight Bearing: Non weight bearing (Right leg) Physical Therapy: Eval and Treat Occupational Therapy: Eval and Treat Problem/Diagnosis (1) Acute osteomyelitis of right calcaneus: Status: Acute Code(s): M86.171 - Other acute osteomyelitis, right ankle and foot (2) Type 2 diabetes mellitus with diabetic polyneuropathy: Status: Acute Code(s): E11.42 - Type 2 diabetes mellitus with diabetic polyneuropathy (3) Bacteremia due to coagulase-negative Staphylococcus: Status: Acute Code(s): R78.81 - Bacteremia; B95.7 - Other staphylococcus as the cause of diseases classified elsewhere Plan Patient is a 69-year-old male who presented to [facility] ED on 10/09/2024 with worsening right heel wound. Hospital course as noted below. Patient discharged to SNF at the [facility] in stable condition on 10/16. 1. Right heel diabetic ulcer with osteomyelitis ? Podiatry, ID, wound care and PT/OT/case management followed. S/p excisional debridement down to bone on 10/11 with podiatry. Wound culture positive for Proteus, Enterococcus, Morganella, strep and anaerobes. Blood cultures positive for MRSE. Per ID, PICC line placed and plan is to continue vancomycin and meropenem for 6 more weeks on discharge. S/p repeat excisional debridement of wound and external fixator placement for nonweightbearing status with podiatry on 10/15. Patient medically ready for discharge on 10/16 and discharged to SNF in stable condition on 10/16. 2. Poorly controlled type 2 diabetes mellitus with neuropathy ? A1c 10.9% on admit. A1c's have consistently been in the 9-11 range over the past few years. Treated with insulin glargine 10 units at night and sliding scale insulin with meals while inpatient with good blood sugar control. Okay to resume home regimen of insulin glargine 25 units at night and metformin 1000 mg twice daily on discharge. Continue home gabapentin. 3. Paroxysmal A-fib ? Patient in rate controlled A-fib on admission. Continue home Lopressor. Home Eliquis held for 10/15 procedure, resumed on 10/16 and continue on discharge. 4. Hypertension ? Continue home amlodipine and losartan. 5. Class III obesity with TODD ? BMI 52 on admit. Continue home BiPAP at night and with naps. Encouraged weight loss. Complicated hospital course, care and prognosis. Total clinical time spent by myself addressing the patient's medical issues, reviewing all the data, and collaborating with patient's care team: 35 minutes. Allergies/Procedures Done in Hospital Allergies ampicillin Allergy (Verified 10/09/24 12:49) Unknown peanut Allergy (Verified 10/09/24 12:49) NEEDS FOLLOW-UP PEANUT BUTTER Penicillins Allergy (Verified 10/09/24 12:49) Unknown Procedures: EKG, PICC line placement and - (Wound excisional debridement x 2, external fixator placement on right foot, chest x-ray x 2, foot x-ray, lower extremity MRI) Type of Care/Length of Stay Estimated LOS: Convalescent Care Less Than 30 days Type of Care Needed: Skilled Rehab Potential: Fair Prognosis: Fair Additional Orders/Day of Discharge H&P will serve as current which was dated: 10/09/24 Day of Discharge: 10/16/24 Dietary and Speech Recommendations Dietitian Recommendations/Changes: Will adjust diet to 2000 calorie consistent carbohydrate; cardiac. Will order Yossi BID with meals to promote wound healing. Diet education as pt willing; dietary noncompliance prior to d/c. Discharge Plan Admission Admit Date/Time: 10/09/24 15:52 Primary Reason for Your Visit: Worsening right heel wound Attending Provider: Ethan Santos Primary Care Provider: Bernabe Reese Consulting Providers: Chula Antunez; Ozzy Cabrera; Gregorio Mccarthy; Albert Root Discharge Orders/Prescriptions Prescriptions: New meropenem 1 gram Recon Soln 1 g IV Q8 37 Days Qty: 111 0RF Rx Instructions: Dx: foot osteomyelitis. Stop date 11/22/24. Weekly bmp, cbc, LFT, esr, and vanc trough. Fax to [phone]. Routine picc care per protocol. vancomycin 1.5 gram recon soln 1.5 g IV Q12H 37 Days Rx Instructions: Dx: foot osteomyelitis. Stop date 11/22/24. Weekly bmp, cbc, LFT, esr, and vanc trough. Fax to [phone]. Routine picc care per protocol. acetaminophen 325 mg Tablet 650 mg PO Q6H PRN PRN (Reason: Pain 1-10 Or Fever >100.7) Qty: 0 0RF Continued insulin glargine U-300 conc [Toujeo Max U-300 SoloStar] 300 unit/mL (3 mL) insulin pen 25 unit subcut QHS Patient Comments: pt states he is out of Toujeo and unsure when he last had any (DME) OneTouch Ultra Test Strip See Rx Instructions .ROUTE .MEDSUPPLY Qty: 10 Patient Comments: Test blood sugar once daily. Rx Instructions: As directed metformin 1,000 MG tablet 1,000 mg PO BIDCM losartan 100 MG tablet 100 mg PO QHS amlodipine 5 MG tablet 5 mg PO QHS [id number] 1 EACH tablet 1 tablet PO DAILY apixaban 5 mg tablet 5 mg PO BID gabapentin 800 mg tablet 800 mg PO .COMPLEX PRN (Reason: neuropathy) Rx Instructions: 800 mg orally 3-4 times daily PRN; (DME) pen needle, diabetic 32 gauge x 5/32 needle See Rx Instructions .Route Qty: 1200 0RF Rx Instructions: As directed metoprolol tartrate 50 mg tablet 50 mg PO BID Discontinued acetaminophen [Tylenol Extra Strength] 500 mg tablet 1,000 mg PO TID amoxicillin-pot clavulanate 875-125 mg tablet 1 tab PO BID Referrals / Follow Up: Ramon Garcia DPM [Med Staff - Active Staff] - Bernabe Reese MD [Primary Care Provider] - Gregorio Mccarthy MD [Med Staff - Active Staff] - Disposition Disposition (needs filled in before D/C Order can be placed): Assisted Facility (2) Type 2 diabetes mellitus with diabetic polyneuropathy Qualifiers: Diabetes mellitus equipment operator intermodal yard insulin use: unspecified equipment operator intermodal yard insulin use status Qualified Code(s): E11.42 - Type 2 diabetes mellitus with diabetic polyneuropathy
--- NOTE | 2024-10-16 11:15 | PCM.DC.SUM ---
Providers Date of Admission: 10/09/24 Date of Discharge: 10/16/24 Primary Care Physician: Dr. Bernabe Reese MD Consultations 10/09/24 17:07 Consult: Onc/Wound/environmental services coordinator Routine Comment: Reason for Consult:: R diabetic foot wound Consult: Podiatry Routine Consulting Provider: Albert Root Reason for Consult: sent by Dr. Garcia for R foot wound EMERGENT Consult: No MD Notified: Yes Date Notified: 10/09/24 Time Notified: 19:11 Method of Notification: Text 10/12/24 07:32 Consult: Infectious Disease Routine Consulting Provider: Gregorio Mccarthy Reason for Consult: Right calcaneus osteomyelitis EMERGENT Consult: No MD Notified: Yes Date Notified: 10/12/24 Time Notified: 07:33 Method of Notification: Verbal Reason For Visit: RIGHT DIABETIC FOOT INFECTION Diagnosis Discharge Diagnosis (1) Acute osteomyelitis of right calcaneus: Status: Acute Code(s): M86.171 - Other acute osteomyelitis, right ankle and foot (2) Type 2 diabetes mellitus with diabetic polyneuropathy: Status: Acute Code(s): E11.42 - Type 2 diabetes mellitus with diabetic polyneuropathy Qualifiers: Diabetes mellitus intermediate card tender insulin use: unspecified assisted insulin use status Qualified Code(s): E11.42 - Type 2 diabetes mellitus with diabetic polyneuropathy (3) Bacteremia due to coagulase-negative Staphylococcus: Status: Acute Code(s): R78.81 - Bacteremia; B95.7 - Other staphylococcus as the cause of diseases classified elsewhere Medications at Discharge Home Medications losartan 100 mg tablet 100 mg PO QHS Check with primary doctor 04/04/14 metformin 1,000 mg tablet 1,000 mg PO BIDCM diabetes 04/04/14 amlodipine 5 mg tablet 5 mg PO QHS BP 10/01/20 [id number] 300 mcg-K 60 mcg-lycop 600 mcg-lutein 300 mcg tablet 1 tablet PO DAILY supplemetn 10/01/20 insulin glargine U-300 conc 300 unit/mL (3 mL) subcutaneous pen (Toujeo Max U-300 SoloStar) 25 unit subcut QHS diabetes 09/27/22 apixaban 5 mg tablet 5 mg PO BID blood thinner 11/29/22 gabapentin 800 mg tablet 800 mg PO .COMPLEX PRN neuropathy 11/29/22 pen needle, diabetic 32 gauge x #1,200 ea 05/23/23 blood sugar diagnostic (food.deTouch Ultra Test strips) #10 ea 07/11/23 metoprolol tartrate 50 mg tablet 50 mg PO BID blood pressure 10/09/24 acetaminophen 325 mg tablet 650 mg (2 x 325 mg) PO Q6H PRN PRN Pain 1-10 Or Fever >100.7 #0 tabs 10/16/24 meropenem 1 gram intravenous solution 1 g IV Q8 37 days #111 ea 10/16/24 vancomycin 1.5 gram intravenous solution 1.5 g IV Q12H 37 days 10/16/24 Hospital Course Operations - (Wound excisional debridement x 2, external fixator placement on right foot) Procedures EKG, PICC line placement and - (Chest x-ray x 2, foot x-ray, lower extremity MRI) Summary of Care Provided Minutes Spent on Discharge: 35 Hospital Course: Patient is a 69-year-old male who presented to [facility] ED on 10/09/2024 with worsening right heel wound. Hospital course as noted below. Patient discharged to SNF at the [facility] in stable condition on 10/16. 1. Right heel diabetic ulcer with osteomyelitis ? Podiatry, ID, wound care and PT/OT/case management followed. S/p excisional debridement down to bone on 10/11 with podiatry. Wound culture positive for Proteus, Enterococcus, Morganella, strep and anaerobes. Blood cultures positive for MRSE. Per ID, PICC line placed and plan is to continue vancomycin and meropenem for 6 more weeks on discharge. S/p repeat excisional debridement of wound and external fixator placement for nonweightbearing status with podiatry on 10/15. Patient medically ready for discharge on 10/16 and discharged to SNF in stable condition on 10/16. 2. Poorly controlled type 2 diabetes mellitus with neuropathy ? A1c 10.9% on admit. A1c's have consistently been in the 9-11 range over the past few years. Treated with insulin glargine 10 units at night and sliding scale insulin with meals while inpatient with good blood sugar control. Okay to resume home regimen of insulin glargine 25 units at night and metformin 1000 mg twice daily on discharge. Continue home gabapentin. 3. Paroxysmal A-fib ? Patient in rate controlled A-fib on admission. Continue home Lopressor. Home Eliquis held for 10/15 procedure, resumed on 10/16 and continue on discharge. 4. Hypertension ? Continue home amlodipine and losartan. 5. Class III obesity with TODD ? BMI 52 on admit. Continue home BiPAP at night and with naps. Encouraged weight loss. Complicated hospital course, care and prognosis. Total clinical time spent by myself addressing the patient's medical issues, reviewing all the data, and collaborating with patient's care team: 35 minutes. Physical Exam Const alert, oriented x3 and no apparent distress Constitutional Narrative: Elderly male, class III obesity, fatigued appearing, otherwise sitting back comfortably in bed and in no acute distress. General Appearance: cooperative and comfortable HEENT normocephalic, head/scalp atraumatic, hearing grossly normal bilaterally, nasal mucous membranes and turbinates normal and moist oral mucous membranes Eyes PERRL, EOMs intact bilaterally and conjunctivae normal Neck full ROM Chest inspection of chest normal Resp normal respiratory effort and no use of accessory muscles Resp Narrative: CPAP in place for nap and patient breathing comfortably with this with good air movement bilaterally throughout. Cardio regular rate, regular rhythm, no murmurs and peripheral pulses 2+ throughout GI normal to inspection, nondistended, normoactive bowel sounds, soft to palpation, non-tender and non-distended Back/Spine normal ROM Extremity Extremity Narrative: Right lower extremity wrapped and with external fixator in place. Psych mental status grossly normal Mood & Affect: depressed Weight / BMI Weight Weight: 157.306 kg Body Mass Index (BMI) 52.7 ABG / Lab / Microbiology Data 10/15/24 03:21 10/15/24 03:21 Laboratory: Laboratory Results - last 24 hr 10/15/24 12:29: POC Glucose 201 H 10/15/24 16:03: POC Glucose 195 H 10/15/24 22:31: POC Glucose 181 H 10/16/24 06:35: POC Glucose 206 H Microbiology: Microbiology 10/15/24 09:38 Bone - Right Foot Gram Stain - Final 10/15/24 09:38 Bone - Right Foot Wound Culture - Preliminary No growth-Final to follow 10/11/24 13:22 Wound - Heel Right Gram Stain - Final 10/11/24 13:22 Wound - Heel Right Wound Culture - Preliminary Gram positive organism 10/11/24 13:22 Wound - Heel Right Anaerobic Culture - Final No anaerobic bacteria isolated. 10/11/24 Unknown Wound - Heel Right Gram Stain - Final 10/11/24 Unknown Wound - Heel Right Wound Culture - Final Enterococcus faecalis Streptococcus mitis/ oralis Proteus penneri Morganella morganii sp sibonii 10/11/24 Unknown Wound - Heel Right Anaerobic Culture - Final Anaerobic cocci Bacteroides thetaiotaomicron Clostridium ramosum 10/11/24 13:19 Wound - Heel Right Gram Stain - Final 10/11/24 13:19 Wound - Heel Right Wound Culture - Final No growth aerobically. 10/11/24 13:19 Wound - Heel Right Anaerobic Culture - Final No anaerobic bacteria isolated. 10/09/24 15:00 Wound - Right Foot Gram Stain - Final 10/09/24 15:00 Wound - Right Foot Wound Culture - Final Proteus sp. Enterococcus faecalis 10/09/24 15:00 Wound - Right Foot Anaerobic Culture - Final Bacteroides thetaiotaomicron Clostridium ramosum 10/09/24 13:59 Blood Culture (Wb) - Anticubital Left Blood Culture - Final Coag Negative Staph 10/09/24 13:40 Blood Culture (Wb) - Anticubital Left Blood Culture - Final Staphylococcus epidermidis Radiography Diagnostic Testing: Radiology Impression Os Calcis X-ray 10/15/24 08:27 IMPRESSION: Fluoro was provided. Reading Location: [facility] Instructions DC O2, CPAP, BIPAP Needs Home O2 Discharge instructions: No Meaningful Use Info Meaningful Use Meaningful Use Diagnoses (Choose all that apply): None applicable Ischemic Stroke Statin Dosing Therapy Reference: STATIN DOSE THERAPY REFERENCE: * Patients > 75 years receive moderate or high dose statin therapy. * Patients 75 years or YOUNGER should receive HIGH intensity statin dose unless contraindicated. You will be required to document reason for non-treatment if statin daily dose does not meet guidelines. HIGH DOSE STATIN THERAPY DAILY Atorvastatin > than or = to 40 mg Rosuvastatin > than or = to 20 mg Amlodipine + Atorvastatin > than or = to 2.5/40 mg Ezetimibe + Simvastatin 10/80 mg Simvastatin 80mg Discharge Plan Admission Admit Date/Time: 10/09/24 15:52 Primary Reason for Your Visit: Worsening right heel wound Attending Provider: Ethan Santos Primary Care Provider: Bernabe Reese Consulting Providers: Chula Antunez; Ozzy Cabrera; Gregorio Mccarthy; Albert Root Discharge Orders/Prescriptions Prescriptions: New meropenem 1 gram Recon Soln 1 g IV Q8 37 Days Qty: 111 0RF Rx Instructions: Dx: foot osteomyelitis. Stop date 11/22/24. Weekly bmp, cbc, LFT, esr, and vanc trough. Fax to [phone]. Routine picc care per protocol. vancomycin 1.5 gram recon soln 1.5 g IV Q12H 37 Days Rx Instructions: Dx: foot osteomyelitis. Stop date 11/22/24. Weekly bmp, cbc, LFT, esr, and vanc trough. Fax to [phone]. Routine picc care per protocol. acetaminophen 325 mg Tablet 650 mg PO Q6H PRN PRN (Reason: Pain 1-10 Or Fever >100.7) Qty: 0 0RF Continued insulin glargine U-300 conc [Toujeo Max U-300 SoloStar] 300 unit/mL (3 mL) insulin pen 25 unit subcut QHS Patient Comments: pt states he is out of Toujeo and unsure when he last had any (DME) OneTouch Ultra Test Strip See Rx Instructions .ROUTE .MEDSUPPLY Qty: 10 Patient Comments: Test blood sugar once daily. Rx Instructions: As directed metformin 1,000 MG tablet 1,000 mg PO BIDCM losartan 100 MG tablet 100 mg PO QHS amlodipine 5 MG tablet 5 mg PO QHS [id number] 1 EACH tablet 1 tablet PO DAILY apixaban 5 mg tablet 5 mg PO BID gabapentin 800 mg tablet 800 mg PO .COMPLEX PRN (Reason: neuropathy) Rx Instructions: 800 mg orally 3-4 times daily PRN; (DME) pen needle, diabetic 32 gauge x 5/32 needle See Rx Instructions .Route Qty: 1200 0RF Rx Instructions: As directed metoprolol tartrate 50 mg tablet 50 mg PO BID Discontinued acetaminophen [Tylenol Extra Strength] 500 mg tablet 1,000 mg PO TID amoxicillin-pot clavulanate 875-125 mg tablet 1 tab PO BID Referrals / Follow Up: Ramon Garcia DPM [[facility] Staff - Active Staff] - Bernabe Reese MD [Primary Care Provider] - Gregorio Mccarthy MD [Med Staff - Active Staff] - Disposition Disposition (needs filled in before D/C Order can be placed): [facility] Charges/Coding Visit Charges Inpatient E&M: 76918 Disch Hosp >30min
[2024-10-16 11:40] LABS: Bedside Glucose 208 mg/dL (74-106)
[2024-10-16] MEDS: Acetaminophen 325 MG Tablet 650 MG PO (11:47)
--- NOTE | 2024-10-16 11:54 | WOUNDNOTE ---
Talked with Dr Garcia. plan [facility]. orders written on the [facility] papers for betadine wet to dry dressing changes to the right heel every 3 days and prn. possible wound VAC at some point.
--- NOTE | 2024-10-16 12:00 | CASEMGMT ---
Addendum entered by Sarita Gifford 10/16/24 14:59: ALVARADO called pt son, Rogelio, to update that pt discharge is on hold at this time and pt is undergoing additional testing. Staff to provide additional updates as available. Rogelio expressed understanding and agreement. ALVARADO remains available to follow. ROSALINDA Pack Addendum entered by Sarita Gifford 10/16/24 13:36: SW returned to pt room to verify that his phone had charged and he has his cord packed in his belongings. Pt was unable to communicate thoughts or ideas and struggled with finding simple words. Pt was visibly flustered. ALVARADO updated charge nurse and bedside nurse who, in turn, notified physician. At this time, pt will not discharge. ALVARADO remains available to follow. ROSALINDA Pack Original Note: Social Work Physician updated and pt is ready for discharge today.? 7000 convalescent form completed in [facility]. ALVARADO met with pt and they are agreeable to discharge plan as stated above.?Pt reports that he will call a friend and declined to have SW notify anyone of discharge. DCA and bedside nurse notified of discharge. DCA to complete all final arrangements and notifications. Plan: [facility] ROSALINDA Pack
--- NOTE | 2024-10-16 12:03 | PHA.DC_ITS ---
Pharmacy ID Med Reconciliation Pharmacy Service has performed discharge medication reconciliation for this patient. The patient's discharge medication list was reviewed for discrepancies and discrepancies were resolved. Medications at Discharge Home Medications losartan 100 mg tablet 100 mg PO QHS Check with primary doctor 04/04/14 metformin 1,000 mg tablet 1,000 mg PO BIDCM diabetes 04/04/14 amlodipine 5 mg tablet 5 mg PO QHS BP 10/01/20 [id number]-sr-rvoww 300 mcg-K 60 mcg-lycop 600 mcg-lutein 300 mcg tablet 1 tablet PO DAILY supplemetn 10/01/20 insulin glargine U-300 conc 300 unit/mL (3 mL) subcutaneous pen (Toujeo Max U- 300 SoloStar) 25 unit subcut QHS diabetes 09/27/22 apixaban 5 mg tablet 5 mg PO BID blood thinner 11/29/22 gabapentin 800 mg tablet 800 mg PO .COMPLEX PRN neuropathy 11/29/22 pen needle, diabetic 32 gauge x 5/32 #1,200 ea 05/23/23 blood sugar diagnostic (OneTouch Ultra Test strips) #10 ea 07/11/23 metoprolol tartrate 50 mg tablet 50 mg PO BID blood pressure 10/09/24 acetaminophen 325 mg tablet 650 mg (2 x 325 mg) PO Q6H PRN PRN Pain 1-10 Or Fever >100.7 #0 tabs 10/16/24 meropenem 1 gram intravenous solution 1 g IV Q8 37 days #111 ea 10/16/24 vancomycin 1.5 gram intravenous solution 1.5 g IV Q12H 37 days 10/16/24
--- NOTE | 2024-10-16 12:19 | CASEMGMT ---
Discharge Planning Discharge orders, signed med list and transport time sent to [facility]. Physicians will transport pt by wheelchair at 1p. Nursing, SW, pt, and his son (Rogelio) updated. Norma Ayala DC Planning Asst.
[2024-10-16] MEDS: 0.9% Saline Lock 10 ML Syringe IV (12:28)
--- NOTE | 2024-10-16 13:33 | NURSING ---
pt is forgetfull and hads hard time finding words - was drowsy this am and pt was sleepy- breakdown worker came to this rn as getting ready to d/c pt and said this wasn't normal for pt- called dr and are holding pt until he can be checked out by . friend in the room and says this is not pt's baseline.
--- NOTE | 2024-10-16 13:47 | CT_ITS ---
PROCEDURE: BRAIN/HEAD WITHOUT CONTRAST (CTBR), 10/16/2024 REASON FOR EXAM: CONFUSION COMPARISON: 11/28/2022 TECHNIQUE: CT head was performed without IV contrast. Multiplanar reformats were generated. RADIATION DOSE SUMMARY: CTDlvol: 44.99 mGy DLP: 812.98 mGycm One or more dose reduction techniques were used (e.g., Automated exposure control, adjustment of the mA and/or kV according to patient size, use of iterative reconstruction technique). FINDINGS: Cerebrum: Abnormal heterogeneous vaguely gyriform high-density lesion centered in the posterior LEFT temporal lobe with slight extension into the occipital lobe is difficult to measure but approximates 4.6 x 3.7 x 3.5 cm. Surrounding vasogenic edema with local mass-effect including LEFT cerebral sulcal effacement, very mild relative effacement of the LEFT lateral ventricle, and mild rightward midline shift of 4 mm. Mild background cerebral volume loss. Cerebellum/brainstem: Unremarkable. Note slight limitation due to beam hardening artifact. Ventricles/extra-axial spaces: As above. Paranasal sinuses/mastoid air cells: Unremarkable. Scalp/calvarium: Unremarkable. Other: Multiple dental caries with lucency surrounding roots of RIGHT maxillary teeth suspicious for periapical abscess. CT/Brain/Head without Contrast IMPRESSION: 1. Findings are suspicious for an ill-defined potentially hemorrhagic and/or hi gh-density mass centered in the posterior LEFT temporal lobe with surrounding edema and associated mass-effect as detailed inc luding 4 mm of rightward midline shift. Recommend MRI brain with and without contrast. 2. Recommend outpatient dental consultation for above described dental findings . 3. Additional description as above. Findings in #1 were discussed by telephone with Danielle STERLING at 12:49 pm [facility] on 10/16/2024 by Ozzy Shafer. Reading Location: [id number]
--- NOTE | 2024-10-16 14:53 | PN.HOSP_ITS ---
Hospitalist Note Discharge order was placed for patient later this morning. Unfortunately, patient began to express aphasia early this afternoon and was noted to have worsening elevated blood pressures. Saw patient at bedside and he had no other focal neurologic deficits but he did have aphasia noted on exam. Stat CT head was obtained. Received call from radiology that CT head is concerning for an ill-defined potentially hemorrhagic and/or high density mass in the posterior left temporal lobe with surrounding edema and associated mass effect. Recommend ation was for stat MRI brain with and without contrast. Called MRI to notify them and also to make them aware of patient's right external fixator that was placed by podiatry yesterday to ensure that this is MRI compatible; they are looking into this currently. Will move patient to the ICU for closer monitoring and place orders for stroke protocol order set. Will hold home Eliquis as well. Discharge order removed.
--- NOTE | 2024-10-16 15:03 | PCM.PN.HOSP ---
Reason for Visit Reason for Visit: Diagnoses Other staphylococcus as the cause of diseases classified elsewhere (10/09/24) Type 2 diabetes mellitus with diabetic polyneuropathy (10/09/24) Type 2 diabetes mellitus with foot ulcer (10/09/24) Non-pressure chronic ulcer of right heel and midfoot with unspecified severity (10/09/24) Non-pressure chronic ulcer of other part of right foot with necrosis of bone (10/09/24) Other acute osteomyelitis, right ankle and foot (10/09/24) Bacteremia (10/09/24) Subjective Subjective Saw patient at bedside this morning. Patient had CPAP in place and appeared slightly more fatigued and somnolent this morning compared yesterday. Otherwise was sitting back comfortably in breathing comfortably on CPAP, in no acute distress. Objective Data Objective Data Vital Signs: Vital Signs Temp Pulse Resp BP Pulse Ox O2 Del Method O2 Flow Rate 97.6 F L 72 18 182/92 H 100 Nasal Cannula 3 10/16/24 13:25 10/16/24 13:25 10/16/24 13:25 10/16/24 13:25 10/16/24 14:19 10/16/24 14:19 10/16/24 14:19 FiO2 30 10/15/24 07:13 Oxygen Flow Rate (L/min) 3 Oxygen Delivery Method Nasal Cannula Weight: 157.306 kg Body Mass Index (BMI) 52.7 Intake & Output: Intake and Output for Last 24 Hours 10/14/24 10/15/24 10/16/24 23:59 23:59 23:59 Intake Total 2547.5 / 2547.5 1513.25 / 1613.25 1270 / 1270 Output Total 950 / 1700 1650 / 2050 600 / 600 Balance 1597.5 / 847.5 -136.75 / -436.75 670 / 670 Lab / Micro Data 10/15/24 03:21 10/15/24 03:21 Labs: Laboratory Results - last 24 hr 10/15/24 16:03: POC Glucose 195 H 10/15/24 22:31: POC Glucose 181 H 10/16/24 06:35: POC Glucose 206 H 10/16/24 11:21: POC Glucose 208 H Micro: Microbiology 10/15/24 09:38 Bone - Right Foot Gram Stain - Final 10/15/24 09:38 Bone - Right Foot Wound Culture - Preliminary No growth-Final to follow 10/11/24 13:22 Wound - Heel Right Gram Stain - Final 10/11/24 13:22 Wound - Heel Right Wound Culture - Preliminary Gram positive organism 10/11/24 13:22 Wound - Heel Right Anaerobic Culture - Final No anaerobic bacteria isolated. 10/11/24 Unknown Wound - Heel Right Gram Stain - Final 10/11/24 Unknown Wound - Heel Right Wound Culture - Final Enterococcus faecalis Streptococcus mitis/ oralis Proteus penneri Morganella morganii sp sibonii 10/11/24 Unknown Wound - Heel Right Anaerobic Culture - Final Anaerobic cocci Bacteroides thetaiotaomicron Clostridium ramosum 10/11/24 13:19 Wound - Heel Right Gram Stain - Final 10/11/24 13:19 Wound - Heel Right Wound Culture - Final No growth aerobically. 10/11/24 13:19 Wound - Heel Right Anaerobic Culture - Final No anaerobic bacteria isolated. 10/09/24 15:00 Wound - Right Foot Gram Stain - Final 10/09/24 15:00 Wound - Right Foot Wound Culture - Final Proteus sp. Enterococcus faecalis 10/09/24 15:00 Wound - Right Foot Anaerobic Culture - Final Bacteroides thetaiotaomicron Clostridium ramosum 10/09/24 13:59 Blood Culture (Wb) - Anticubital Left Blood Culture - Final Coag Negative Staph 10/09/24 13:40 Blood Culture (Wb) - Anticubital Left Blood Culture - Final Staphylococcus epidermidis Radiography Diagnostic Testing: Radiology Impression Brain CT 10/16/24 13:47 IMPRESSION: 1. Findings are suspicious for an ill-defined potentially hemorrhagic and/or high-density mass centered in the posterior LEFT temporal lobe with surrounding edema and associated mass-effect as detailed including 4 mm of rightward midline shift. Recommend MRI brain with and without contrast. 2. Recommend outpatient dental consultation for above described dental findings. 3. Additional description as above. Findings in #1 were discussed by telephone with Danielle STERLING at 12:49 pm [facility] on 10/16/2024 by Ozzy Shafer. Reading Location: [facility] Physical Exam Const alert and no apparent distress Constitutional Narrative: Elderly male, class III obesity, fatigued appearing and somewhat somnolent appearing on CPAP, otherwise sitting back comfortably in bed and in no acute distress. General Appearance: cooperative and comfortable Orientation / Consciousness: lethargic HEENT normocephalic, head/scalp atraumatic, hearing grossly normal bilaterally, nasal mucous membranes and turbinates normal and moist oral mucous membranes Eyes PERRL, EOMs intact bilaterally and conjunctivae normal Neck full ROM Chest inspection of chest normal Resp normal respiratory effort and no use of accessory muscles Resp Narrative: CPAP in place for nap and patient breathing comfortably with this with good air movement bilaterally throughout. Cardio regular rate, regular rhythm, no murmurs and peripheral pulses 2+ throughout GI normal to inspection, nondistended, normoactive bowel sounds, soft to palpation, non-tender and non-distended Back/Spine normal ROM Extremity Extremity Narrative: Right lower extremity wrapped and with external fixator in place. Psych mental status grossly normal Mood & Affect: depressed Assessment & Plan Assessment/Plan (1) Acute osteomyelitis of right calcaneus: PLAN: Plan Patient is a 69-year-old male who presented to [facility] ED on 10/09/2024 with worsening right heel wound. 1. Right heel diabetic ulcer with osteomyelitis ? Podiatry, ID, wound care and PT/OT/case management following. S/p excisional debridement down to bone on 10/11 with podiatry. Wound culture positive for Proteus, Enterococcus, Morganella, strep and anaerobes. Blood cultures positive for MRSE. Per ID, PICC line placed and plan is to continue vancomycin and meropenem for 6 more weeks on discharge. S/p repeat excisional debridement of wound and external fixator placement for nonweightbearing status with podiatry on 10/15. Patient accepted at SNF and has bed available once medically ready for discharge. If podiatry feels patient is medically ready for discharge, will plan to discharge to SNF today. 2. Poorly controlled type 2 diabetes mellitus with neuropathy ? A1c 10.9% on admit. A1c's have consistently been in the 9-11 range over the past few years. Continue treatment with insulin glargine 10 units at night and sliding scale insulin with meals, adjust as needed. Continue home gabapentin. 3. Paroxysmal A-fib ? Patient in rate controlled A-fib on admission. Continue home Lopressor. Home Eliquis held on 10/15 for procedure, okay to resume on 10/16. 4. Hypertension ? Continue home amlodipine and losartan. 5. Class III obesity with TODD ? BMI 52 on admit. Continue home BiPAP at night and with naps. Encouraged weight loss. Complicates hospital course, care and prognosis. DVT prophylaxis: Not indicated, on Eliquis CODE STATUS: Full code, verified Expected disposition: SNF, 1 to 2 days Total clinical time spent by myself addressing the patient's medical issues, reviewing all the data, and collaborating with patient's care team: 35 minutes. Charges/Coding Visit Charges Inpatient E&M: 66273 Subs Hosp L2
--- NOTE | 2024-10-16 15:31 | SUR.OPER ---
icu called and report given and pt transfered
[2024-10-16] MEDS: levETIRAcetam IV 1,000 MG/100 ML BAG 400 MG IV (15:56)
[2024-10-16] MEDS: Nicardipine HCl-0.9% Sod Chlor 20 MG/200 ML IV.SOLN 50 MG CONT INF (16:24)
[2024-10-16 16:46] LABS: Bedside Glucose 189 mg/dL (74-106)
[2024-10-16] MEDS: Nicardipine HCl-0.9% Sod Chlor 20 MG/200 ML IV.SOLN 200 MG CONT INF (17:55)
--- NOTE | 2024-10-16 18:10 | NURSING ---
Pt refused NIH assessment. Attempted as much as pt would allow.
--- NOTE | 2024-10-17 16:34 | CASEMGMT ---
Social Work- SW followed up with ICU staff to ensure that pt family received notification of transfer. It was reported to SW that staff called both pt son and pt sister prio to and following transfer of pt. ROSALINDA Pack
== END 2024-10-16 18:41 | disposition short-term general hospital (02) | DRG 628 ==
LOC: ED 15:51 → MS3 15:53 → ICU 10-16 15:44
PROVIDERS: Anesthesiology; Internal Medicine; Podiatrist; Admitting Provider Internal Medicine; Emergency Provider Emergency Medicine; PCP Family Medicine; Visit Provider Hospitalist
PROC: 0QBL0ZX Excision of Right Tarsal, Open Approach, Diagnostic (ICD-10-PCS; principal; 2024-10-11 11:45)
PROC: 0QBL0ZZ Excision of Right Tarsal, Open Approach (ICD-10-PCS; principal; 2024-10-15 07:15)
DX: E11.69 Type 2 diabetes mellitus with other specified complication (principal); G93.5 Compression of brain; I61.9 Nontraumatic intracerebral hemorrhage, unspecified; G93.6 Cerebral edema; I62.9 Nontraumatic intracranial hemorrhage, unspecified; R78.81 Bacteremia; R47.01 Aphasia; Z68.43 Body mass index [BMI] 50.0-59.9, adult; L97.414 Non-pressure chronic ulcer of right heel and midfoot with necrosis of bone; M86.671 Other chronic osteomyelitis, right ankle and foot; E87.20 Acidosis, unspecified; I48.0 Paroxysmal atrial fibrillation; E11.42 Type 2 diabetes mellitus with diabetic polyneuropathy; I10 Essential (primary) hypertension; D50.9 Iron deficiency anemia, unspecified; L97.514 Non-pressure chronic ulcer of other part of right foot with necrosis of bone; E11.621 Type 2 diabetes mellitus with foot ulcer; E11.65 Type 2 diabetes mellitus with hyperglycemia; E78.5 Hyperlipidemia, unspecified; G47.33 Obstructive sleep apnea (adult) (pediatric); Z79.4 Long term (current) use of insulin; E11.51 Type 2 diabetes mellitus with diabetic peripheral angiopathy without gangrene; B95.2 Enterococcus as the cause of diseases classified elsewhere; B95.7 Other staphylococcus as the cause of diseases classified elsewhere; Z79.01 Long term (current) use of anticoagulants; Z83.3 Family history of diabetes mellitus; Z79.84 Long term (current) use of oral hypoglycemic drugs; Z87.891 Personal history of nicotine dependence; B96.4 Proteus (mirabilis) (morganii) as the cause of diseases classified elsewhere; E66.813 Obesity, class 3; Z79.02 Long term (current) use of antithrombotics/antiplatelets; Z79.899 Other long term (current) drug therapy; Z99.89 Dependence on other enabling machines and devices; Z75.1 Person awaiting admission to adequate facility elsewhere
CPT/HCPCS: 36415; 36569; 70450; 71045; 73630; 73650; 73721; 76000; 80048; 80053; 80202; 82565; 82962; 83036; 83605; 84443; 85025; 85610; 85652; 85730; 86140; 86850; 86900; 86901; 87015; 87040; 87070; 87075; 87077; 87116; 87176; 87186; 87205; 87206; 88304; 93005; 94002; 94660; 94762; 97110; 97162; 97166; 97530; 97535; 97803; 99213; 99284; C1713; J2185; A4216; G0463; J2405

== ENCOUNTER 2024-11-13 10:30 | Outpatient (RCR) | payer MEDICARE, OTHER, SELFPAY ==
[2024-10-18 00:21] VITALS: BP 160/71; PULSE 80; RESP 16; TEMP 36.4; BMI 55.2
--- NOTE | 2024-11-06 10:54 | PN.PCM_ITS ---
History of Present Illness Date of Service: 11/06/24 Chief Complaint: Right heel wound History of Wound: Patient has chronic wound to right heel in setting of diabetic neuropathy, poorly controlled diabetes, peripheral neuropathy, peripheral arterial disease, iron deficiency, chronic chronic anticoagulation. Patient denies constitutional symptoms. Patient ambulates in surgical shoe with heel offloading. 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 Patient has no other complaints. Subjective Subjective Patient is 3 weeks postop from application of right lower extremity external fixation with wound debridement down to bone. Patient was placed on PICC line with IV antibiotics per infectious disease. Patient had a complication postoperatively and suffered a stroke and was ultimately transferred to [facility] which is why I have not seen him during the postoperative period until 3 weeks postop. Patient presents today stating he has no motor deficits to his knowledge; however, he has some issues with short-term memory after the stroke. Patient is residing in a SNF where they are performing wound care dressing changes. Objective Data Objective Data Vital Signs: Vital Signs Temp Pulse Resp BP 97.6 F L 80 16 160/71 H 10/18/24 00:21 10/18/24 00:21 10/18/24 00:21 10/18/24 00:21 Weight: 164.654 kg Body Mass Index (BMI) 55.2 Physical Exam Narrative Neurovascular status unchanged. Stable right plantar heel wound with intact external fixator. Wound demonstrates clean granular base postdebridement with no deep probing undermini ng or signs of infection acutely. Assessment/Plan Assessment/Plan (1) Acute osteomyelitis of right calcaneus: CODE(S): M86.171 - Other acute osteomyelitis, right ankle and foot PLAN: Exam performed. As mentioned previously in subjective patient suffered stroke. Only deficit is some issues with short-term memory. Patient's wound is noted to be improving today. Patient receiving IV antibiotics via PICC line per infectious disease. Today right heel wound was excisionally debrided down to including level of muscle using a 5 mm dermal curette with incident without incident. All nonviable tissue was removed. Patient tolerated procedure well. Hemostasis obtained with light compression. Pre and postdebridement measurements document nursing notes. Will plan for Dakin's wet-to-dry dressing to the wound site. Plan for Betadine to pin sites. Patient will continue nonweightbearing to right lower extremity with offloading via delta frame with heel offloading U built into it. Follow-up weekly. (2) Non-pressure chronic ulcer of other part of right foot with necrosis of muscle: CODE(S): L97.513 - Non-pressure chronic ulcer of other part of right foot with necrosis of muscle
[2024-11-06 11:09] VITALS: BP 137/72; PULSE 81; RESP 18; TEMP 36.1; BMI 55.2
--- NOTE | 2024-11-06 13:09 | WC ---
R HEEL 11/06/24
[2024-11-13 10:23] VITALS: BP 127/67; PULSE 69; RESP 18; TEMP 35.7; BMI 55.2
--- NOTE | 2024-11-13 11:04 | PN.PCM_ITS ---
History of Present Illness Date of Service: 11/13/24 Chief Complaint: Right heel wound History of Wound: Patient has chronic wound to right heel in setting of diabetic neuropathy, poorly controlled diabetes, peripheral neuropathy, peripheral arterial disease, iron deficiency, chronic chronic anticoagulation. Patient denies constitutional symptoms. Patient ambulates in surgical shoe with heel offloading. 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 Patient has no other complaints. Objective Data Objective Data Vital Signs: Vital Signs Temp Pulse Resp BP O2 Del Method 96.2 F L 69 18 127/67 H Room Air 11/13/24 10:23 11/13/24 10:23 11/13/24 10:23 11/13/24 10:23 11/13/24 10:23 Oxygen Delivery Method Room Air Weight: 164.654 kg Body Mass Index (BMI) 55.2 Physical Exam Narrative Neurovascular status unchanged. Stable right plantar heel wound with intact external fixator. Wound demonstrates clean granular base postdebridement with no deep probing undermining or signs of infection acutely. Debridement Note Debridement Note Post-Debridement Measurements and Additional Note: Post-Debridement Measurements/Treatment - Nurse 1 - General Ulcer Assessment Start: 11/06/24 10:49 Freq: Status: Active Protocol: BUDDY.[email or web address] Activity Type Activity Date Activity User E-sign Co-sign Detail Recorded Client Recorded Date Recorded By Document 11/06/24 11:09 KW [id number] 11/06/24 11:11 KW Document 11/13/24 10:23 KW [id number] 11/13/24 10:35 KW 11/06/24 11/13/24 11:09 10:23 - Today's Visit Information Type of service Follow-up Visit Follow-up Visit (Physician/GENERATOR REPAIRER (Physician/GENERATOR REPAIRER ) ) Arrival Mode Walker Wheelchair Patient Identification Verified (Name & Yes Yes ) Height and Weight Body Mass Index (BMI) 55.2 55.2 BMI Classification Obese Obese Vital Signs Temperature (97.8 F-99.1 F) 97.0 F L 96.2 F L Temperature Source Temporal Temporal Pulse Rate (60-100) 81 69 Pulse Location Monitor Monitor Respiratory Rate (12-18) 18 18 Respiratory rate source Observation Observation Oxygen Delivery Method Room Air Room Air Blood Pressure (90/60-120/80) 137/72 H 127/67 H Blood Pressure Mean (mm Hg) 93 87 Source Monitor Monitor Position Sitting Sitting Blood Pressure Location Left Arm Left Arm History Since Last Visit- (Skip if this is Patient's initial visit) Have you changed medications since your No No last visit? Any new allergies or adverse reactions No No Had a fall/change in ADL's that may No No increase risk of falls Signs or symptoms of abuse and/or No No neglect since last visit Have you been in the hospital since your Yes No last visit? Has dressing in place as prescribed Yes Yes Has compression in place as prescribed N/A N/A Has offloadiing in place as prescribed Yes Yes Experienced any changes in pain level or No No management Left Footwear No Footwear Regular Shoe Right Footwear No Footwear No Footwear Pain Scale: 0-10 Numeric Is Patient Pain Free? Yes Yes WC - Nurse 1 - General Ulcer Measurement Start: 11/06/24 10:49 Freq: Status: Active Protocol: Activity Type Activity Date Activity User E-sign Co-sign Detail Recorded Client Recorded Date Recorded By Document 11/06/24 11:09 KW [id number] 11/06/24 11:11 KW Document 11/13/24 10:23 KW [id number] 11/13/24 10:35 KW 11/06/24 11/13/24 11:09 10:23 Wound Center Nurse 1 4.R heel medial -Current Size (cm) - Length 0.1 0.1 -Current Size (cm) - Width 0.1 0.1 -Current Size (cm) - Depth 0.1 0 -Total Square Cm 0.01 0.01 -Date of Last Picture (Recall this 11/06/24 field) -Exudate Amt Large -Exudate Type Serosanguineous -Wound Margin Distinct, Outline Attached -Granulation Amt Large (67-100%) -Granulation Quality Red -Necrosis Amt Medium (34-66%) -Necrotic Tissue Type Adherent Slough -Texture (Lesvia-wound Skin Appearance) Assessed Assessed -Moisture (Lesvia-wound Skin Appearance) Assessed,Dry/ Assessed Scaly -Color (Lesvia-wound Skin Appearance) Assessed Assessed -Temperature (Lesvia-wound Skin No Abnormality No Abnormality Appearance) (Pt Warm) (Pt Warm) -Tenderness on Palpation (Lesvia-wound No No Skin Appearance) -Ulcer Cleansing Soap and Water Soap and Water -Foul Odor after Cleansing No No -Anesthetic Used 5% Lidocaine Gel -Wound Comment(s) not measured not measured in during nurse 1 nurse 1dr in room - Nurse 2 - General Ulcer CM Notes Start: 11/06/24 10:49 Freq: Status: Active Protocol: Activity Type Activity Date Activity User E-sign Co-sign Detail Recorded Client Recorded Date Recorded By Document 11/06/24 10:53 JF [id number] 11/06/24 10:54 Document 11/13/24 11:03 [id number] 11/13/24 11:04 JF 11/06/24 11/13/24 10:53 11:03 Wound Center Nurse 2 4.R heel medial -Time 10:53 11:03 -Correct Patient Yes Yes -Correct Side, Site, Position Yes Yes -Correct Procedure Yes Yes -Procedure Performed Yes Yes -Type of Procedure Debridement Debridement -Clinical Debridement Muscle / Fascia Muscle / Fascia -Tissue Removed Muscle Muscle -Post Debridement (cm) - Length 4.2 3.4 -Post Debridement (cm) - Width 5.4 4.8 -Post Debridement (cm) - Depth 1.8 0.2 -Total Square (Post) (cm) 22.68 16.32 -Area of Debridement (cm) - Length 4.2 3.4 -Area of Debridement (cm) - Width 5.4 4.8 -Total Square (Area) (cm) 22.68 16.32 -Tunneling No No -Undermining/Tunneling No No -Circular Undermining No No -Wound/Ulcer Outcome Not Healed Not Healed -Ulcer Cleansing Rinsed/ Rinsed/ Irrigated with Irrigated with Saline Saline -Foul Odor after Cleansing No No -Bioengineered Tissue No No -Bleeding Controlled with Pressure Pressure, Surgifoam 3 1/8 x 5 (lg) -Surgifoam (3 1/8 x 5) Large 2 -Treatment Response Procedure Procedure Tolerated Well Tolerated Well -Offloading No Yes -Type of Offloading Other -Other Type of Offloading external fixator -Assistive Device(s) Wheelchair -Debridement - Muscle / Fascia, 1st Yes Yes 20sq cm -Debridement, Muscle/Fascia, ea addt'l 1 20sq cm or part thereof Pain Scale: 0-10 Numeric Is Patient Pain Free? Yes Yes - Nurse 3 - General Ulcer D/C NN Start: 11/06/24 10:49 Freq: Status: Active Protocol: Activity Type Activity Date Activity User E-sign Co-sign Detail Recorded Client Recorded Date Recorded By Document 11/06/24 11:11 SIENNA [id number] 11/06/24 11:12 SIENNA 11/06/24 11:11 Wound Care Center Nurse 3 4.R heel medial -Other Dressing dakins moistened gauze -Primary Dressing Covered/Secured with Dry Gauze & Roll Gauze, Secured with Tape -Wound Comment(s) pt has external fixature in place Pain Scale: 0-10 Numeric Is Patient Pain Free? Yes WC - Visit Discharge Discharge Condition Stable Ambulatory Status Wheelchair Medication Reconcilliation completed & No provided to patient/care provider Clinical Summary of Care Provided Yes Assessment/Plan Assessment/Plan (1) Acute osteomyelitis of right calcaneus: CODE(S): M86.171 - Other acute osteomyelitis, right ankle and foot PLAN: Exam performed. As mentioned previously in subjective patient suffered stroke. Only deficit is some issues with short-term memory. Patient's wound is noted to be improving today. Patient receiving IV antibiotics via PICC line per infectious disease. Today right heel wound was excisionally debrided down to including level of muscle using a 5 mm dermal curette with incident without incident. All nonviable tissue was removed. Patient tolerated procedure well. Hemostasis obtained with light compression. Pre and postdebridement measurements document nursing notes. Will plan for Dakin's wet-to-dry dressing to the wound site. Plan for Betadine to pin sites. Patient will continue nonweightbearing to right lower extremity with offloading via delta frame with heel offloading U built into it. Follow-up weekly. Initial plan was for wound vac, but due to eliquis and bleeding with debridement I feel he would be a poor candidate (2) Non-pressure chronic ulcer of other part of right foot with necrosis of muscle: CODE(S): L97.513 - Non-pressure chronic ulcer of other part of right foot with necrosis of muscle
== END 2024-11-17 23:59 | disposition home or self-care (01) ==
LOC: WC 10:30
PROVIDERS: PCP Family Medicine; Referring Provider Podiatrist; Visit Provider Podiatrist
DX: E11.621 Type 2 diabetes mellitus with foot ulcer (principal); L97.513 Non-pressure chronic ulcer of other part of right foot with necrosis of muscle; M86.171 Other acute osteomyelitis, right ankle and foot; E11.42 Type 2 diabetes mellitus with diabetic polyneuropathy; E11.51 Type 2 diabetes mellitus with diabetic peripheral angiopathy without gangrene; E11.69 Type 2 diabetes mellitus with other specified complication; Z79.01 Long term (current) use of anticoagulants
CPT/HCPCS: 11043; 11046

== ENCOUNTER → 2024-11-29 | Outpatient (CLI) | payer MEDICARE, OTHER, SELFPAY ==
--- NOTE | 2024-11-29 14:15 | CT_ITS ---
PROCEDURE: BRAIN/HEAD WITHOUT CONTRAST 11/29/2024 REASON FOR EXAM: POST L TEMPORAL HEMORRHAGE TECHNIQUE: Head CT without intravenous contrast. Coronal and Sagittal reconstruction series were provided. One or more dose reduction techniques were used (e.g., Automated exposure control, adjustment of the mA and/or kV according to patient size, use of iterative reconstruction technique. RADIATION DOSE SUMMARY: CTDlvol: 44.99 mGy DLP: 897 mGycm COMPARISON: CT scan on 10/16/2024. FINDINGS: Complete resolution of the previously described left temporal acute hemorrhagic products. Mildly decreased associated edema which remains moderate. Complete resolution of midline shift. Normal size of the ventricles and extra-axial spaces for the patient's age. Normal basal ganglia and thalami. Normal brainstem. Normal cerebellum. There is no demonstrated extra-axial, intraparenchymal, or intraventricular hemorrhage. Normal calvarium. There is no demonstrated fracture. Normal soft tissue structures. Normal visualized paranasal sinuses. CT/Brain/Head without Contrast IMPRESSION: Complete resolution of the previously described left temporal acute hemorrhagic products. Mildly decreased associated edema which remains moderate. Complete resolution of midline shift. Reading Location: [facility]
== END | disposition home or self-care (01) ==
LOC: CT 14:00
PROVIDERS: PCP Family Medicine; Referring Provider Internal Medicine; Visit Provider Internal Medicine
DX: Z86.79 Personal history of other diseases of the circulatory system (principal)
CPT/HCPCS: 70450

== ENCOUNTER 2024-12-11 10:00 | Outpatient (RCR) | payer MEDICARE, OTHER, SELFPAY ==
[2024-11-18 00:32] VITALS: BP 127/67; PULSE 69; RESP 18; TEMP 35.7; BMI 55.2
[2024-11-20 10:17] VITALS: BP 110/68; PULSE 72; RESP 16; TEMP 35.9; BMI 55.2
--- NOTE | 2024-11-20 10:49 | PCM.WC.PN ---
History of Present Illness Date of Service: 11/20/24 Chief Complaint: Right heel wound History of Wound: Patient has chronic wound to right heel in setting of diabetic neuropathy, poorly controlled diabetes, peripheral neuropathy, peripheral arterial disease, iron deficiency, chronic chronic anticoagulation. Patient denies constitutional symptoms. Patient ambulates in surgical shoe with heel offloading. 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 Patient has no other complaints. Objective Data Objective Data Vital Signs: Vital Signs Temp Pulse Resp BP O2 Del Method 96.7 F L 72 16 110/68 Room Air 11/20/24 10:17 11/20/24 10:17 11/20/24 10:17 11/20/24 10:17 11/20/24 10:17 Oxygen Delivery Method Room Air Weight: 164.654 kg Body Mass Index (BMI) 55.2 Physical Exam Narrative Neurovascular status unchanged. Stable right plantar heel wound with intact external fixator. Wound demonstrates clean granular base postdebridement with no deep probing undermining or signs of infection acutely. Debridement Note Debridement Note Post-Debridement Measurements and Additional Note: Post-Debridement Measurements/Treatment - Nurse 1 - General Ulcer Assessment Start: 11/20/24 10:16 Freq: Status: Active Protocol: BUDDY.YOUNG Activity Type Activity Date Activity User E-sign Co-sign Detail Recorded Client Recorded Date Recorded By Document 11/20/24 10:17 [id number] 11/20/24 10:35 KW 11/20/24 10:17 - Today's Visit Information Type of service Follow-up Visit (Physician/[employer] OFFICER ) Arrival Mode Wheelchair Patient Identification Verified (Name & Yes ) Height and Weight Body Mass Index (BMI) 55.2 BMI Classification Obese Vital Signs Temperature (97.8 F-99.1 F) 96.7 F L Temperature Source Temporal Pulse Rate (60-100) 72 Pulse Location Monitor Respiratory Rate (12-18) 16 Respiratory rate source Observation Oxygen Delivery Method Room Air Blood Pressure (90/60-120/80) 110/68 Blood Pressure Mean (mm Hg) 82 Source Monitor Position Sitting Blood Pressure Location Left Arm History Since Last Visit- (Skip if this is Patient's initial visit) Have you changed medications since your No last visit? Any new allergies or adverse reactions No Had a fall/change in ADL's that may No increase risk of falls Signs or symptoms of abuse and/or No neglect since last visit Have you been in the hospital since your No last visit? Has dressing in place as prescribed Yes Has compression in place as prescribed Yes Has offloadiing in place as prescribed Yes Experienced any changes in pain level or No management Left Footwear Regular Shoe Right Footwear No Footwear Pain Scale: 0-10 Numeric Is Patient Pain Free? Yes - Nurse 1 - General Ulcer Measurement Start: 11/20/24 10:16 Freq: Status: Active Protocol: Activity Type Activity Date Activity User E-sign Co-sign Detail Recorded Client Recorded Date Recorded By Document 11/20/24 10:17 SIENNA [id number] 11/20/24 10:35 11/20/24 10:17 Wound Center Nurse 1 4.R heel medial -Current Size (cm) - Length 3.5 -Current Size (cm) - Width 3 -Current Size (cm) - Depth 0.3 -Total Square Cm 10.5 -Date of Last Picture (Recall this 11/20/24 field) -Exudate Amt Medium -Exudate Type Serosanguineous -Wound Margin Distinct, Outline Attached -Granulation Amt Large (67-100%) -Granulation Quality Red -Texture (Lesvia-wound Skin Appearance) Assessed,Callus -Moisture (Lesvia-wound Skin Appearance) Assessed,Dry/ Scaly -Color (Lesvia-wound Skin Appearance) Assessed -Temperature (Lesvia-wound Skin No Abnormality Appearance) (Pt Warm) -Tenderness on Palpation (Lesvia-wound No Skin Appearance) -Ulcer Cleansing Soap and Water -Foul Odor after Cleansing No -Anesthetic Used 5% Lidocaine Gel - Nurse 2 - General Ulcer CM Notes Start: 11/20/24 10:16 Freq: Status: Active Protocol: Activity Type Activity Date Activity User E-sign Co-sign Detail Recorded Client Recorded Date Recorded By Document 11/20/24 10:47 ÁNGEL [id number] 11/20/24 10:49 ÁNGEL 11/20/24 10:47 Wound Center Nurse 2 -Time 10:48 -Correct Patient Yes -Correct Side, Site, Position Yes -Correct Procedure Yes -Procedure Performed Yes -Type of Procedure Debridement -Clinical Debridement Subcutaneous -Tissue Removed Subcutaneous -Post Debridement (cm) - Length 3.0 -Post Debridement (cm) - Width 3.5 -Post Debridement (cm) - Depth 0.3 -Total Square (Post) (cm) 10.50 -Area of Debridement (cm) - Length 3.0 -Area of Debridement (cm) - Width 3.5 -Total Square (Area) (cm) 10.50 -Tunneling No -Undermining/Tunneling No -Circular Undermining No -Wound/Ulcer Outcome Not Healed -Ulcer Cleansing Rinsed/ Irrigated with Saline -Foul Odor after Cleansing No -Bioengineered Tissue No -Bleeding Controlled with Pressure -Treatment Response Procedure Tolerated Well -Type of Offloading Other -Other Type of Offloading external fixator -Debridement - Subq, 1st 20sq cm Yes Pain Scale: 0-10 Numeric Is Patient Pain Free? Yes Assessment/Plan Assessment/Plan (1) Acute osteomyelitis of right calcaneus: CODE(S): M86.171 - Other acute osteomyelitis, right ankle and foot PLAN: Exam performed. As mentioned previously in subjective patient suffered stroke. Only deficit is some issues with short-term memory. Patient's wound is noted to be improving today. Patient receiving IV antibiotics via PICC line per infectious disease. Today right heel wound was excisionally debrided down to including level of muscle using a 5 mm dermal curette with incident without incident. All nonviable tissue was removed. Patient tolerated procedure well. Hemostasis obtained with light compression. Pre and postdebridement measurements document nursing notes. Will plan for Dakin's wet-to-dry dressing to the wound site. Plan for Betadine to pin sites. Patient will continue nonweightbearing to right lower extremity with offloading via delta frame with heel offloading U built into it. Follow-up weekly. Initial plan was for wound vac, but due to eliquis and bleeding with debridement I feel he would be a poor candidate (2) Non-pressure chronic ulcer of other part of right foot with necrosis of muscle: CODE(S): L97.513 - Non-pressure chronic ulcer of other part of right foot with necrosis of muscle
--- NOTE | 2024-11-21 09:19 | WC ---
PHOTO 11/20/24 RIGHT HEEL
[2024-11-27 09:35] VITALS: BP 121/72; PULSE 58; RESP 18; TEMP 35.9; BMI 55.2
--- NOTE | 2024-11-27 10:17 | PN.PCM_ITS ---
History of Present Illness Date of Service: 11/27/24 Chief Complaint: Right heel wound History of Wound: Patient has chronic wound to right heel in setting of diabetic neuropathy, poorly controlled diabetes, peripheral neuropathy, peripheral arterial disease, iron deficiency, chronic chronic anticoagulation. Patient denies constitutional symptoms. Patient ambulates in surgical shoe with heel offloading. 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 Patient has no other complaints. Objective Data Objective Data Vital Signs: Vital Signs Temp Pulse Resp BP O2 Del Method 96.6 F L 58 L 18 121/72 H Room Air 11/27/24 09:35 11/27/24 09:35 11/27/24 09:35 11/27/24 09:35 11/27/24 09:35 Oxygen Delivery Method Room Air Weight: 164.654 kg Body Mass Index (BMI) 55.2 Physical Exam Narrative Neurovascular status unchanged. Stable right plantar heel wound with intact external fixator. Wound demonstrates clean granular base postdebridement with no deep probing undermining or signs of infection acutely. Debridement Note Debridement Note Post-Debridement Measurements and Additional Note: Post-Debridement Measurements/Treatment - Nurse 1 - General Ulcer Assessment Start: 11/20/24 10:16 Freq: Status: Active Protocol: WC.YOUNG Activity Type Activity Date Activity User E-sign Co-sign Detail Recorded Client Recorded Date Recorded By Document 11/20/24 10:17 KW [id number] 11/20/24 10:35 KW Document 11/27/24 09:35 KW [id number] 11/27/24 09:41 KW 11/20/24 11/27/24 10:17 09:35 - Today's Visit Information Type of service Follow-up Visit Follow-up Visit (Physician/DRILL PUNCH OPERATOR (Physician/DRILL PUNCH OPERATOR ) ) Arrival Mode Wheelchair Wheelchair Patient Identification Verified (Name & Yes Yes ) Height and Weight Body Mass Index (BMI) 55.2 55.2 BMI Classification Obese Obese Vital Signs Temperature (97.8 F-99.1 F) 96.7 F L 96.6 F L Temperature Source Temporal Temporal Pulse Rate (60-100) 72 58 L Pulse Location Monitor Monitor Respiratory Rate (12-18) 16 18 Respiratory rate source Observation Observation Oxygen Delivery Method Room Air Room Air Blood Pressure (90/60-120/80) 110/68 121/72 H Blood Pressure Mean (mm Hg) 82 88 Source Monitor Monitor Position Sitting Sitting Blood Pressure Location Left Arm Left Arm History Since Last Visit- (Skip if this is Patient's initial visit) Have you changed medications since your No No last visit? Any new allergies or adverse reactions No No Had a fall/change in ADL's that may No No increase risk of falls Signs or symptoms of abuse and/or No No neglect since last visit Have you been in the hospital since your No No last visit? Has dressing in place as prescribed Yes Yes Has compression in place as prescribed Yes N/A Has offloadiing in place as prescribed Yes Yes Experienced any changes in pain level or No No management Left Footwear Regular Shoe Regular Shoe Right Footwear No Footwear Other Footwear (Comment) Pain Scale: 0-10 Numeric Is Patient Pain Free? Yes Yes WC - Nurse 1 - General Ulcer Measurement Start: 11/20/24 10:16 Freq: Status: Active Protocol: Activity Type Activity Date Activity User E-sign Co-sign Detail Recorded Client Recorded Date Recorded By Document 11/20/24 10:17 KW [id number] 11/20/24 10:35 KW Document 11/27/24 09:35 KW [id number] 11/27/24 09:41 KW 11/20/24 11/27/24 10:17 09:35 Wound Center Nurse 1 4.R heel medial -Combined with other wound No -Current Size (cm) - Length 3.5 2.5 -Current Size (cm) - Width 3 3.8 -Current Size (cm) - Depth 0.3 0.6 -Total Square Cm 10.5 9.50 -Date of Last Picture (Recall this 11/20/24 field) -Photo Taken Yes -Epithelialization Medium 34-66% -Tunneling No -Undermining/Tunneling No -Circular Undermining No -Exudate Amt Medium -Exudate Type Serosanguineous Serosanguineous -Wound Margin Distinct, Flat & Intact Outline Attached -Granulation Amt Large (67-100%) Large (67-100%) -Granulation Quality Red Red -Slough/Fibrin Yes -Necrosis Amt Small (1-33%) -Necrotic Tissue Type Adherent Slough -Structure Exposed N/A -Texture (Lesvia-wound Skin Appearance) Assessed,Callus Assessed -Moisture (Lesvia-wound Skin Appearance) Assessed,Dry/ Assessed,Dry/ Scaly Scaly -Color (Lesvia-wound Skin Appearance) Assessed Assessed -Temperature (Lesvia-wound Skin No Abnormality No Abnormality Appearance) (Pt Warm) (Pt Warm) -Tenderness on Palpation (Lesvia-wound No No Skin Appearance) -Ulcer Cleansing Soap and Water Soap and Water -Foul Odor after Cleansing No No -Anesthetic Used 5% Lidocaine 5% Lidocaine Gel Gel Lower Limb Edema Present NA - Nurse 2 - General Ulcer CM Notes Start: 11/20/24 10:16 Freq: Status: Active Protocol: Activity Type Activity Date Activity User E-sign Co-sign Detail Recorded Client Recorded Date Recorded By Document 11/20/24 10:47 [id number] 11/20/24 10:49 11/20/24 10:47 Wound Center Nurse 2 4.R heel medial -Time 10:48 -Correct Patient Yes -Correct Side, Site, Position Yes -Correct Procedure Yes -Procedure Performed Yes -Type of Procedure Debridement -Clinical Debridement Subcutaneous -Tissue Removed Subcutaneous -Post Debridement (cm) - Length 3.0 -Post Debridement (cm) - Width 3.5 -Post Debridement (cm) - Depth 0.3 -Total Square (Post) (cm) 10.50 -Area of Debridement (cm) - Length 3.0 -Area of Debridement (cm) - Width 3.5 -Total Square (Area) (cm) 10.50 -Tunneling No -Undermining/Tunneling No -Circular Undermining No -Wound/Ulcer Outcome Not Healed -Ulcer Cleansing Rinsed/ Irrigated with Saline -Foul Odor after Cleansing No -Bioengineered Tissue No -Bleeding Controlled with Pressure -Treatment Response Procedure Tolerated Well -Type of Offloading Other -Other Type of Offloading external fixator -Debridement - Subq, 1st 20sq cm Yes Pain Scale: 0-10 Numeric Is Patient Pain Free? Yes - Nurse 3 - General Ulcer D/C NN Start: 11/20/24 10:16 Freq: Status: Active Protocol: Activity Type Activity Date Activity User E-sign Co-sign Detail Recorded Client Recorded Date Recorded By Document 11/20/24 11:12 [facility] [id number] 11/20/24 11:12 [facility] 11/20/24 11:12 Wound Care Center Nurse 3 4.R heel medial -Ulcer Cleansing Rinsed/ Irrigated with Saline -Foul Odor after Cleansing No -Other Dressing dakins, heel hat., kerlix -Primary Dressing Covered/Secured with Dry Gauze & Roll Gauze, Secured with Tape Treatment Response Procedure Tolerated Well Pain Scale: 0-10 Numeric Is Patient Pain Free? Yes WC - Visit Discharge Discharge Condition Stable Ambulatory Status Wheelchair Transportation ecf Facility Type Medical Billing And Coding Instructor Care Facility Assessment/Plan Assessment/Plan (1) Acute osteomyelitis of right calcaneus: CODE(S): M86.171 - Other acute osteomyelitis, right ankle and foot PLAN: Exam performed. As mentioned previously in subjective patient suffered stroke. Only deficit is some issues with short-term memory. Patient's wound is noted to be improving today. Patient receiving IV antibiotics via PICC line per infectious disease. Today right heel wound was excisionally debrided down to including level of muscle using a 5 mm dermal curette with incident without incident. All nonviable tissue was removed. Patient tolerated procedure well. Hemostasis obtained with light compression. Pre and postdebridement measurements document nursing notes. Today a 6 billing unit epicord graft was applied to the right plantar heel, entire graft use, no waste. stabilized with overlying adaptic, steristrips, DSD and compression Patient will continue nonweightbearing to right lower extremity with offloading via delta frame with heel offloading U built into it. Follow-up weekly. Initial plan was for wound vac, but due to eliquis and bleeding with debridement I feel he would be a poor candidate (2) Non-pressure chronic ulcer of other part of right foot with necrosis of muscle: CODE(S): L97.513 - Non-pressure chronic ulcer of other part of right foot with necrosis of muscle
--- NOTE | 2024-11-27 12:58 | WC ---
PHOTO 11/27/24 RIGHT HEEL MED
[2024-12-04 10:12] VITALS: BP 141/70; PULSE 70; RESP 16; TEMP 35.8; BMI 55.2
--- NOTE | 2024-12-04 10:57 | PN.PCM_ITS ---
History of Present Illness Date of Service: 12/04/24 Chief Complaint: Right heel wound History of Wound: Patient has chronic wound to right heel in setting of diabetic neuropathy, poorly controlled diabetes, peripheral neuropathy, peripheral arterial disease, iron deficiency, chronic chronic anticoagulation. Patient denies constitutional symptoms. Patient ambulates in surgical shoe with heel offloading. 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 Patient has no other complaints. Objective Data Objective Data Vital Signs: Vital Signs Temp Pulse Resp BP O2 Del Method 96.5 F L 70 16 141/70 H Room Air 12/04/24 10:12 12/04/24 10:12 12/04/24 10:12 12/04/24 10:12 11/27/24 09:35 Oxygen Delivery Method Room Air Weight: 164.654 kg Body Mass Index (BMI) 55.2 Physical Exam Narrative Neurovascular status unchanged. Stable right plantar heel wound with intact external fixator. Wound demonstrates clean granular base postdebridement with no deep probing undermining or signs of infection acutely. Debridement Note Debridement Note Post-Debridement Measurements and Additional Note: Post-Debridement Measurements/Treatment - Nurse 1 - General Ulcer Assessment Start: 11/20/24 10:16 Freq: Status: Active Protocol: WC.LOWJOJOT Activity Type Activity Date Activity User E-sign Co-sign Detail Recorded Client Recorded Date Recorded By Document 11/20/24 10:17 KW [id number] 11/20/24 10:35 KW Document 11/27/24 09:35 KW [id number] 11/27/24 09:41 KW Document 12/04/24 10:12 KW [id number] 12/04/24 10:32 KW 11/20/24 11/27/24 12/04/24 10:17 09:35 10:12 - Today's Visit Information Type of service Follow-up Visit Follow-up Visit Follow-up Visit (Physician/WOOD DRILL OPERATOR (Physician/WOOD DRILL OPERATOR (Physician/WOOD DRILL OPERATOR ) ) ) Arrival Mode Wheelchair Wheelchair Wheelchair Patient Identification Verified (Name & Yes Yes Yes ) Height and Weight Body Mass Index (BMI) 55.2 55.2 55.2 BMI Classification Obese Obese Obese Vital Signs Temperature (97.8 F-99.1 F) 96.7 F L 96.6 F L 96.5 F L Temperature Source Temporal Temporal Temporal Pulse Rate (60-100) 72 58 L 70 Pulse Location Monitor Monitor Monitor Respiratory Rate (12-18) 16 18 16 Respiratory rate source Observation Observation Observation Oxygen Delivery Method Room Air Room Air Blood Pressure (90/60-120/80) 110/68 121/72 H 141/70 H Blood Pressure Mean (mm Hg) 82 88 93 Source Monitor Monitor Monitor Position Sitting Sitting Sitting Blood Pressure Location Left Arm Left Arm Right Arm History Since Last Visit- (Skip if this is Patient's initial visit) Have you changed medications since your No No No last visit? Any new allergies or adverse reactions No No No Had a fall/change in ADL's that may No No No increase risk of falls Signs or symptoms of abuse and/or No No No neglect since last visit Have you been in the hospital since your No No No last visit? Has dressing in place as prescribed Yes Yes Yes Has compression in place as prescribed Yes N/A Yes Has offloadiing in place as prescribed Yes Yes Yes Experienced any changes in pain level or No No No management Left Footwear Regular Shoe Regular Shoe Regular Shoe Right Footwear No Footwear Other Footwear No Footwear (Comment) Pain Scale: 0-10 Numeric Is Patient Pain Free? Yes Yes Yes WC - Nurse 1 - General Ulcer Measurement Start: 11/20/24 10:16 Freq: Status: Active Protocol: Activity Type Activity Date Activity User E-sign Co-sign Detail Recorded Client Recorded Date Recorded By Document 11/20/24 10:17 KW [id number] 11/20/24 10:35 KW Document 11/27/24 09:35 KW [id number] 11/27/24 09:41 KW Document 12/04/24 10:12 KW [id number] 12/04/24 10:32 KW 11/20/24 11/27/24 12/04/24 10:17 09:35 10:12 Wound Center Nurse 1 4.R heel medial -Combined with other wound No -Current Size (cm) - Length 3.5 2.5 3.5 -Current Size (cm) - Width 3 3.8 2 -Current Size (cm) - Depth 0.3 0.6 0.2 -Total Square Cm 10.5 9.50 7.0 -Date of Last Picture (Recall this 11/20/24 12/04/24 field) -Photo Taken Yes -Epithelialization Medium 34-66% -Tunneling No -Undermining/Tunneling No -Circular Undermining No -Exudate Amt Medium Medium -Exudate Type Serosanguineous Serosanguineous Serosanguineous -Wound Margin Distinct, Flat & Intact Distinct, Outline Outline Attached Attached -Granulation Amt Large (67-100%) Large (67-100%) Large (67-100%) -Granulation Quality Red Red Red -Slough/Fibrin Yes -Necrosis Amt Small (1-33%) -Necrotic Tissue Type Adherent Slough -Structure Exposed N/A -Texture (Lesvia-wound Skin Appearance) Assessed,Callus Assessed Assessed -Moisture (Lesvia-wound Skin Appearance) Assessed,Dry/ Assessed,Dry/ A ssessed,Dry/ Scaly Scaly Scaly -Color (Lesvia-wound Skin Appearance) Assessed Assessed Assessed -Temperature (Lesvia-wound Skin No Abnormality No Abnormality No Abnormality Appearance) (Pt Warm) (Pt Warm) (Pt Warm) -Tenderness on Palpation (Lesvia-wound No No No Skin Appearance) -Ulcer Cleansing Soap and Water Soap and Water Soap and Water -Foul Odor after Cleansing No No No -Anesthetic Used 5% Lidocaine 5% Lidocaine 5% Lidocaine Gel Gel Gel Lower Limb Edema Present NA WC - Nurse 2 - General Ulcer CM Notes Start: 11/20/24 10:16 Freq: Status: Active Protocol: Activity Type Activity Date Activity User E-sign Co-sign Detail Recorded Client Recorded Date Recorded By Document 11/20/24 10:47 [id number] 11/20/24 10:49 Document 11/27/24 10:10 [facility] [id number] 11/27/24 10:20 [facility] Document 12/04/24 10:36 [id number] 12/04/24 10:47 11/20/24 11/27/24 12/04/24 10:47 10:10 10:36 Wound Center Nurse 2 4.R heel medial -Time 10:48 10:17 10:46 -Correct Patient Yes Yes Yes -Correct Side, Site, Position Yes Yes Yes -Correct Procedure Yes Yes Yes -Procedure Performed Yes Yes Yes -Type of Procedure Debridement Debridement Debridement -Clinical Debridement Subcutaneous Muscle / Fascia Subcutaneous -Tissue Removed Subcutaneous Muscle,Fascia Subcutaneous -Post Debridement (cm) - Length 3.0 3.5 2.3 -Post Debridement (cm) - Width 3.5 3.3 3.1 -Post Debridement (cm) - Depth 0.3 0.3 0.2 -Total Square (Post) (cm) 10.50 11.55 7.13 -Area of Debridement (cm) - Length 3.0 3.5 2.3 -Area of Debridement (cm) - Width 3.5 3.3 3.1 -Total Square (Area) (cm) 10.50 11.55 7.13 -Tunneling No No No -Undermining/Tunneling No No No -Circular Undermining No No No -Wound/Ulcer Outcome Not Healed Not Healed Not Healed -Ulcer Cleansing Rinsed/ Rinsed/ Rinsed/ Irrigated with Irrigated with Irrigated with Saline Saline Saline -Foul Odor after Cleansing No No No -Bioengineered Tissue No Yes Yes -Type of Bioengineered Tissue Epicord Epifix Mesh -Expiration Date 02/18/29 03/20/29 -Product Lot Number [id number] -Percent Used 100 100 -Lot number of Saline Used [id number] -Bleeding Controlled with Pressure Pressure Pressure -Treatment Response Procedure Procedure Procedure Tolerated Well Tolerated Well Tolerated Well -Offloading Yes -Type of Offloading Other Total Contact Cast (TCC) - Right ($) -Other Type of Offloading external fixator -Debridement - Subq, 1st 20sq cm Yes No -Debridement - Muscle / Fascia, 1st No 20sq cm -Apply Skin Sub - 1st 25 sq cm - Feet 1 1 -Epicord Application 1-4 (per sq cm) 6 -Epifix Mesh Application 1-4 (per sq 11 cm) Pain Scale: 0-10 Numeric Is Patient Pain Free? Yes Yes Yes - Nurse 3 - General Ulcer D/C NN Start: 11/20/24 10:16 Freq: Status: Active Protocol: Activity Type Activity Date Activity User E-sign Co-sign Detail Recorded Client Recorded Date Recorded By Document 11/20/24 11:12 [facility] [id number] 11/20/24 11:12 [facility] Document 11/27/24 10:20 [facility] [id number] 11/27/24 10:21 [facility] 11/20/24 11/27/24 11:12 10:20 Wound Care Center Nurse 3 4.R heel medial -Ulcer Cleansing Rinsed/ Irrigated with Saline -Foul Odor after Cleansing No -Other Dressing dakins, heel ABD hat., kerlix -Primary Dressing Covered/Secured with Dry Gauze & Dry Gauze & Roll Gauze, Roll Gauze, Secured with Secured with Tape Tape -Other Covering EPICORD Treatment Response Procedure Tolerated Well Pain Scale: 0-10 Numeric Is Patient Pain Free? Yes Yes WC - Visit Discharge Discharge Condition Stable Stable Ambulatory Status Wheelchair Wheelchair Transportation ecf ECF Facility Type [facility] Specialty Person Care Facility Facility Assessment/Plan Assessment/Plan (1) Non-pressure chronic ulcer of other part of right foot with fat layer exposed: CODE(S): L97.512 - Non-pressure chronic ulcer of other part of right foot with fat layer exposed (2) Encounter for other orthopedic aftercare: CODE(S): Z47.89 - Encounter for other orthopedic aftercare PLAN: Plan Procedures Performed Today: * Removal of External Fixator: * Device removed from right lower extremity without complications. * Pin Site Wound Management: * 2 wounds at distal anterior tibia and 2 at medial and lateral calcaneus identified post-fixator removal. * All pin sites were flushed and closed using 2-0 retention sutures. * Debridement of Posterior Right Heel Wound: * Sharp debridement performed to remove necrotic/devitalized tissue. * Wound bed prepared for graft placement. * Application of Biologic Graft: * 11 billing unit (4x4.5 cm) Epifix graft applied to the debrided posterior heel wound. * Graft secured per protocol. * Anesthesia: * Procedure performed under local anesthesia, without use of tourniquet. Assessment: * Chronic posterior right heel wound, diabetic and neuropathic etiology, post- debridement with graft application. * Four acute pin site wounds, status post external fixator removal, flushed and closed. * Diabetes mellitus with peripheral neuropathy ? complicating wound healing. Plan: * Continue local wound care per protocol. * Monitor for signs of infection at all wound sites. * Follow up in 1 week for re-evaluation and possible dressing change. * Reinforce offloading measures and glucose control. * Patient education provided regarding wound care and signs of infection.
--- NOTE | 2024-12-05 08:39 | WC ---
PHOTO 12/04/24 RIGHT HEEL
--- NOTE | 2024-12-05 08:41 | WC ---
PHOTO 12/04/24 RIGHT HEEL
--- NOTE | 2024-12-06 14:37 | WC ---
DEB[place]A WOUND NURSE FROM [facility] CALLED. REPORTS THAT PT'S HEEL HAS NOT STOPPED BLEEDING ON/OFF SINCE HIS LAST VISIT HERE. PT HAS BEEN DILIGENT W/ LEG ELEVATION. ALSO FEELS LIKE THERE IS AN ODOR TO WOUND/GRAFT SITE. DR SCHRADER UPDATED. N.O.'S GIVEN TO F TO CHANGE, CLEAN AREA AND MAY APPLY SURGIFOAM/HEMOSTATIC AGENT. IF FAILS, WOUND NURSE MAY CAUTERIZE W/ SILVER NITRATE. OK TO REMOVE MESH OVER GRAFT TO DO THAT. IF THAT FAILS, PT NEEDS TO GO TO ER. ODOR IS DUE TO BLOOD SOAKED DRSG PER . BLEEDING RESOLUTION=GRAFT PRESERVATION.
[2024-12-11 10:06] VITALS: BP 95/53; PULSE 65; RESP 18; TEMP 36.4; BMI 55.2
--- NOTE | 2024-12-11 10:46 | PN.PCM_ITS ---
History of Present Illness Date of Service: 12/11/24 Chief Complaint: Right heel wound History of Wound: Patient has chronic wound to right heel in setting of diabetic neuropathy, poorly controlled diabetes, peripheral neuropathy, peripheral arterial disease, iron deficiency, chronic chronic anticoagulation. Patient denies constitutional symptoms. Patient ambulates in surgical shoe with heel offloading. 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 Patient has no other complaints. Objective Data Objective Data Vital Signs: Vital Signs Temp Pulse Resp BP O2 Del Method 97.5 F L 65 18 95/53 L Room Air 12/11/24 10:06 12/11/24 10:06 12/11/24 10:06 12/11/24 10:06 12/11/24 10:06 Oxygen Delivery Method Room Air Weight: 164.654 kg Body Mass Index (BMI) 55.2 Physical Exam Narrative Neurovascular status unchanged. Stable right plantar heel wound with intact external fixator. Wound demonstrates clean granular base postdebridement with no deep probing undermining or signs of infection acutely. Debridement Note Debridement Note Post-Debridement Measurements and Additional Note: Post-Debridement Measurements/Treatment - Nurse 1 - General Ulcer Assessment Start: 11/20/24 10:16 Freq: Status: Active Protocol: [email or web address] Activity Type Activity Date Activity User E-sign Co-sign Detail Recorded Client Recorded Date Recorded By Document 11/20/24 10:17 KW [id number] 11/20/24 10:35 KW Document 11/27/24 09:35 KW [id number] 11/27/24 09:41 KW Document 12/04/24 10:12 KW [id number] 12/04/24 10:32 KW Document 12/11/24 10:06 KW [id number] 12/11/24 10:28 KW 11/20/24 11/27/24 12/04/24 10:17 09:35 10:12 - Today's Visit Information Type of service Follow-up Visit Follow-up Visit Follow-up Visit (Physician/SALES OPERATIONS SPECIALIST (Physician/SALES OPERATIONS SPECIALIST (Physician/SALES OPERATIONS SPECIALIST ) ) ) Arrival Mode Wheelchair Wheelchair Wheelchair Transfer Assistance Patient Identification Verified (Name & Yes Yes Yes ) Height and Weight Body Mass Index (BMI) 55.2 55.2 55.2 BMI Classification Obese Obese Obese Vital Signs Temperature (97.8 F-99.1 F) 96.7 F L 96.6 F L 96.5 F L Temperature Source Temporal Temporal Temporal Pulse Rate (60-100) 72 58 L 70 Pulse Location Monitor Monitor Monitor Respiratory Rate (12-18) 16 18 16 Respiratory rate source Observation Observation Observation Oxygen Delivery Method Room Air Room Air Blood Pressure (90/60-120/80) 110/68 121/72 H 141/70 H Blood Pressure Mean (mm Hg) 82 88 93 Source Monitor Monitor Monitor Position Sitting Sitting Sitting Blood Pressure Location Left Arm Left Arm Right Arm History Since Last Visit- (Skip if this is Patient's initial visit) Have you changed medications since your No No No last visit? Any new allergies or adverse reactions No No No Had a fall/change in ADL's that may No No No increase risk of falls Signs or symptoms of abuse and/or No No No neglect since last visit Have you been in the hospital since your No No No last visit? Has dressing in place as prescribed Yes Yes Yes Has compression in place as prescribed Yes N/A Yes Has offloadiing in place as prescribed Yes Yes Yes Experienced any changes in pain level or No No No management Left Footwear Regular Shoe Regular Shoe Regular Shoe Right Footwear No Footwear Other Footwear No Footwear (Comment) Pain Scale: 0-10 Numeric Is Patient Pain Free? Yes Yes Yes 12/11/24 10:06 WC - Today's Visit Information Type of service Follow-up Visit (Physician/SALES OPERATIONS SPECIALIST ) Arrival Mode Wheelchair Transfer Assistance Shira Lift Patient Identification Verified (Name & Yes ) Height and Weight Body Mass Index (BMI) 55.2 BMI Classification Obese Vital Signs Temperature (97.8 F-99.1 F) 97.5 F L Temperature Source Temporal Pulse Rate (60-100) 65 Pulse Location Monitor Respiratory Rate (12-18) 18 Respiratory rate source Observation Oxygen Delivery Method Room Air Blood Pressure (90/60-120/80) 95/53 L Blood Pressure Mean (mm Hg) 67 Source Monitor Position Sitting Blood Pressure Location Left Arm History Since Last Visit- (Skip if this is Patient's initial visit) Have you changed medications since your No last visit? Any new allergies or adverse reactions No Had a fall/change in ADL's that may No increase risk of falls Signs or symptoms of abuse and/or No neglect since last visit Have you been in the hospital since your No last visit? Has dressing in place as prescribed Yes Has compression in place as prescribed Yes Has offloadiing in place as prescribed Yes Experienced any changes in pain level or No management Left Footwear Total Contact Cast Right Footwear Regular Shoe Pain Scale: 0-10 Numeric Is Patient Pain Free? Yes WC - Nurse 1 - General Ulcer Measurement Start: 11/20/24 10:16 Freq: Status: Active Protocol: Activity Type Activity Date Activity User E-sign Co-sign Detail Recorded Client Recorded Date Recorded By Document 11/20/24 10:17 KW [id number] 11/20/24 10:35 KW Document 11/27/24 09:35 KW [id number] 11/27/24 09:41 KW Document 12/04/24 10:12 KW [id number] 12/04/24 10:32 KW Document 12/11/24 10:06 KW [id number] 12/11/24 10:28 KW 11/20/24 11/27/24 12/04/24 10:17 09:35 10:12 Wound Center Nurse 1 4.R heel medial -Combined with other wound No -Current Size (cm) - Length 3.5 2.5 3.5 -Current Size (cm) - Width 3 3.8 2 -Current Size (cm) - Depth 0.3 0.6 0.2 -Total Square Cm 10.5 9.50 7.0 -Date of Last Picture (Recall this 11/20/24 12/04/24 field) -Photo Taken Yes -Epithelialization Medium 34-66% -Tunneling No -Undermining/Tunneling No -Circular Undermining No -Exudate Amt Medium Medium -Exudate Type Serosanguineous Serosanguineous Serosanguineous -Wound Margin Distinct, Flat & Intact Distinct, Outline Outline Attached Attached -Granulation Amt Large (67-100%) Large (67-100%) Large (67-100%) -Granulation Quality Red Red Red -Slough/Fibrin Yes -Necrosis Amt Small (1-33%) -Necrotic Tissue Type Adherent Slough -Structure Exposed N/A -Texture (Lesvia-wound Skin Appearance) Assessed,Callus Assessed Assessed -Moisture (Lesvia-wound Skin Appearance) Assessed,Dry/ Assessed,Dry/ Assessed,Dry/ Scaly Scaly Scaly -Color (Lesvia-wound Skin Appearance) Assessed Assessed Assessed -Temperature (Lesvia-wound Skin No Abnormality No Abnormality No Abnormality Appearance) (Pt Warm) (Pt Warm) (Pt Warm) -Tenderness on Palpation (Lesvia-wound No No No Skin Appearance) -Ulcer Cleansing Soap and Water Soap and Water Soap and Water -Foul Odor after Cleansing No No No -Anesthetic Used 5% Lidocaine 5% Lidocaine 5% Lidocaine Gel Gel Gel Lower Limb Edema Present 12/11/24 10:06 Wound Center Nurse 1 4.R heel medial -Combined with other wound -Current Size (cm) - Length 2 -Current Size (cm) - Width 2.6 -Current Size (cm) - Depth 0.2 -Total Square Cm 5.2 -Date of Last Picture (Recall this 12/11/24 field) -Photo Taken -Epithelialization -Tunneling -Undermining/Tunneling -Circular Undermining -Exudate Amt Large -Exudate Type Serosanguineous -Wound Margin Distinct, Outline Attached -Granulation Amt Large (67-100%) -Granulation Quality Pale,[place] -Slough/Fibrin -Necrosis Amt Small (1-33%) -Necrotic Tissue Type Adherent Slough -Structure Exposed -Texture (Lesvia-wound Skin Appearance) Assessed -Moisture (Lesvia-wound Skin Appearance) Assessed -Color (Lesvia-wound Skin Appearance) Assessed -Temperature (Lesvia-wound Skin No Abnormality Appearance) (Pt Warm) -Tenderness on Palpation (Lesvia-wound No Skin Appearance) -Ulcer Cleansing Soap and Water -Foul Odor after Cleansing No -Anesthetic Used 5% Lidocaine Gel Lower Limb Edema Present - Nurse 2 - General Ulcer CM Notes Start: 11/20/24 10:16 Freq: Status: Active Protocol: Activity Type Activity Date Activity User E-sign Co-sign Detail Recorded Client Recorded Date Recorded By Document 11/20/24 10:47 [id number] 11/20/24 10:49 Document 11/27/24 10:10 [facility] [id number] 11/27/24 10:20 [facility] Document 12/04/24 10:36 [id number] 12/04/24 10:47 11/20/24 11/27/24 12/04/24 10:47 10:10 10:36 Wound Center Nurse 2 4.R heel medial -Time 10:48 10:17 10:46 -Correct Patient Yes Yes Yes -Correct Side, Site, Position Yes Yes Yes -Correct Procedure Yes Yes Yes -Procedure Performed Yes Yes Yes -Type of Procedure Debridement Debridement Debridement -Clinical Debridement Subcutaneous Muscle / Fascia Subcutaneous -Tissue Removed Subcutaneous Muscle,Fascia Subcutaneous -Post Debridement (cm) - Length 3.0 3.5 2.3 -Post Debridement (cm) - Width 3.5 3.3 3.1 -Post Debridement (cm) - Depth 0.3 0.3 0.2 -Total Square (Post) (cm) 10.50 11.55 7.13 -Area of Debridement (cm) - Length 3.0 3.5 2.3 -Area of Debridement (cm) - Width 3.5 3.3 3.1 -Total Square (Area) (cm) 10.50 11.55 7.13 -Tunneling No No No -Undermining/Tunneling No No No -Circular Undermining No No No -Wound/Ulcer Outcome Not Healed Not Healed Not Healed -Ulcer Cleansing Rinsed/ Rinsed/ Rinsed/ Irrigated with Irrigated with Irrigated with Saline Saline Saline -Foul Odor after Cleansing No No No -Bioengineered Tissue No Yes Yes -Type of Bioengineered Tissue Epicord Epifix Mesh -Expiration Date 02/18/29 03/20/29 -Product Lot Number [id number] -Percent Used 100 100 -Lot number of Saline Used [id number] -Bleeding Controlled with Pressure Pressure Pressure -Treatment Response Procedure Procedure Procedure Tolerated Well Tolerated Well Tolerated Well -Offloading Yes -Type of Offloading Other Total Contact Cast (TCC) - Right ($) -Other Type of Offloading external fixator -Debridement - Subq, 1st 20sq cm Yes No -Debridement - Muscle / Fascia, 1st No 20sq cm -Apply Skin Sub - 1st 25 sq cm - Feet 1 1 -Epicord Application 1-4 (per sq cm) 6 -Epifix Mesh Application 1-4 (per sq 11 cm) Pain Scale: 0-10 Numeric Is Patient Pain Free? Yes Yes Yes - Nurse 3 - General Ulcer D/C NN Start: 11/20/24 10:16 Freq: Status: Active Protocol: Activity Type Activity Date Activity User E-sign Co-sign Detail Recorded Client Recorded Date Recorded By Document 11/20/24 11:12 [facility] [id number] 11/20/24 11:12 [facility] Document 11/27/24 10:20 [facility] [id number] 11/27/24 10:21 [facility] Document 12/04/24 10:57 DS [id number] 12/04/24 11:53 DS 11/20/24 11/27/24 12/04/24 11:12 10:20 10:57 Wound Care Center Nurse 3 4.R heel medial -Ulcer Cleansing Rinsed/ Irrigated with Saline -Foul Odor after Cleansing No -Primary Dressing Applied AMD Dressing 4x4,Aquacel Extra -Other Dressing dakins, heel ABD epi mesh/wound hat., kerlix veil; TCC applied -Primary Dressing Covered/Secured with Dry Gauze & Dry Gauze & Secured with Roll Gauze, Roll Gauze, Tape Secured with Secured with Tape Tape -Other Covering EPICORD -AMD Dressing 4x4 1 -Aquacel Extra 1 Treatment Response Procedure Tolerated Well Pain Scale: 0-10 Numeric Is Patient Pain Free? Yes Yes Yes WC - Visit Discharge Discharge Condition Stable Stable Stable Ambulatory Status Wheelchair Wheelchair Wheelchair Transportation [facility] Facility Type Shelter Care Shelter Care Facility Facility Assessment/Plan Assessment/Plan (1) Non-pressure chronic ulcer of other part of right foot with fat layer exposed: CODE(S): L97.512 - Non-pressure chronic ulcer of other part of right foot with fat layer exposed (2) Encounter for other orthopedic aftercare: CODE(S): Z47.89 - Encounter for other orthopedic aftercare PLAN: Plan Procedures Performed Today * Debridement of Posterior Right Heel Wound: * Sharp debridement performed to remove necrotic/devitalized tissue. * Wound bed prepared for graft placement. * Application of Biologic Graft: * 11 billing unit (4x4.5 cm) Epifix graft applied to the debrided posterior heel wound. * Graft secured per protocol. * Anesthesia: * Procedure performed under local anesthesia, without use of tourniquet. Assessment: * Chronic posterior right heel wound, diabetic and neuropathic etiology, post- debridement with graft application. * Four acute pin site wounds, status post external fixator removal, flushed and closed. * Diabetes mellitus with peripheral neuropathy ? complicating wound healing Plan: * Continue local wound care per protocol. * Monitor for signs of infection at all wound sites. * Follow up in 1 week for re-evaluation and possible dressing change. * Total contact cast applied for offloading * hemostasis obtained prior to graft and cast application. * Reinforce offloading measures and glucose control. * Patient education provided regarding wound care and signs of infection.
--- NOTE | 2024-12-11 12:12 | WC ---
Transfer of care from Dr. Garcia to Dr. Cavazos effective end of day 12/11/24
--- NOTE | 2024-12-11 14:00 | WC ---
PHOTO 12/11/24 RIGHT HEEL
== END 2024-12-17 23:59 | disposition home or self-care (01) ==
LOC: WC 10:00
PROVIDERS: PCP Family Medicine; Referring Provider Podiatrist; Visit Provider Surgery
DX: E11.621 Type 2 diabetes mellitus with foot ulcer (principal); L97.513 Non-pressure chronic ulcer of other part of right foot with necrosis of muscle; M86.171 Other acute osteomyelitis, right ankle and foot; E11.69 Type 2 diabetes mellitus with other specified complication; E11.42 Type 2 diabetes mellitus with diabetic polyneuropathy; E11.51 Type 2 diabetes mellitus with diabetic peripheral angiopathy without gangrene; Z79.01 Long term (current) use of anticoagulants
CPT/HCPCS: 11042; 15275; 29445; Q4186; Q4187

== ENCOUNTER → 2024-12-18 | Outpatient (REF) | payer MEDICARE, OTHER, SELFPAY ==
--- OUTSIDE RECORDS SUMMARY | 2024-12-18 04:59 | XMS RPT_ITS | CCD ---
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 Bernabe Reese Primary Care Provider 1([facility] )[phone] Dr. Bernabe Reese Referring Provider 1([facility])[phone] Gregorio Grhaam Attending Provider 1([facility])[phone] Abdulaziz DISTRIBUTION FIELD ENGINEER, DISTRIBUTION FIELD ENGINEER-C Amelie Attending Provider Dillan Beach MD Primary Care Provider Dr. Bernabe Reese Primary Care Provider 1([facility] )[phone] Dr. Bernabe Reese Referring Provider 1([facility])[phone] Stanley DISTRIBUTION FIELD ENGINEER, DISTRIBUTION FIELD ENGINEER-C Bernabe Madison Attending Provider 1([facility])[phone] Dr. Jerrod Mast Attending Provider [phone] Dr. Gui Bailey Emergency Provider Dr. Hilda Zimmerman Admit Provider Dr. Hilda Zimmerman Attending Provider Dr. Hilda Zimmerman Other Provider 1([facility])[phone] Gregorio Mccarthy Other Provider Dr. Lawrence Rodriguez Attending Provider 1([facility])[phone] Dr. Bernabe Reese Primary Care Provider 1([facility] )[phone] Dr. Bernabe Reese Referring Provider 1([facility])[phone] Dr. Sylvester Thomas Attending Provider Dr. Bernabe Reese Primary Care Provider Dr. Bernabe Reese Referring Provider Dr. Sylvester Thomas Attending Provider Dr. Edward Luevano Emergency Provider 1([facility])[phone] Haily Santos Admit Provider [phone] Haily Santos Other Provider [phone] Julee Spain Attending Provider Dr. Julee Spain Other Provider Dr. Albert Root Other Provider Dr. Gregorio Mccarthy Other Provider 1([facility])[phone] Dr. Bernabe Reese Primary Care Provider 1([facility] )[phone] Dr. Edward Luevano Emergency Provider 1([facility])[phone] Haily Santos Admit Provider 1([facility])[phone] Haily Santos Other Provider [phone] Julee Spain Attending Provider 1([facility])[phone] Julee Spain Other Provider Dr. Albert Root Other Provider Dr. Gregorio Mccarthy Other Provider 1([facility])[phone] Dr. Bernabe Reese Referring Provider 1([facility])[phone] Dr. Rocky Edwards Attending Provider Mary Ann STERLING, Dr. Bernabe Mejias Primary Care Provider Dr. Bernabe Reese MD Attending Provider Mary Ann STERLING, Dr. Bernabe Mejias Referring Provider Radha DPM, Dr. Navarro Attending Provider Radha CIFUENTES, Dr. Navarro Referring Provider Ivett KEMPM, Dr. Price Referring Provider Ivett DPM, Dr. Price Referring Provider Ирина MARLEY, Dr. Ford Emergency Provider [phone] Tulio STERLING, Dr. Quiros Admit Provider Tulio STERLING, Dr. Quiros Attending Provider PROVIDER, UNKNOWN Attending Unavailable PROVIDER, UNKNOWN Admitting Unavailable Bernabe Reese MD Primary Care Provider DILLAN GUZMAN Admitting Unavailable CONSULT, SURGERY - NEURO Consulting Unavail able ELIZABETH BETTENCOURT Attending Unavailable HAILY SANTOS Referring Unavailable Dr. Bernabe Reese MD Primary Care Provider [phone] Mary Ann STERLING, Dr. Bernabe Mejias Attending Provider Dr. Bernabe Reese MD Referring Provider Tulio STERLING, Dr. Quiros Other Provider Dr. Haily Santos DO Attending Provider Deborah MARLEY, Dr. Preciado Other Provider Daniel Dominique MD Other Provider Unavailable Nevaeh STERLING, Dr. Mullins Other Provider [phone] Elizabeth Bettencourt MD Other Provider Unavailable Dr. Najma Butler DO Other Provider Teresa STERLING, Dr. Jiménez Other Provider [phone] Dr. Silas Sanchez MD Other Provider Dr. Laura Flores MD Other Provider [phone] Dr. Dillan Guzman MD Other Provider [phone] Dr. Jing Joshi MD Other Provider Abdoul STERLING, Dr. Wood Other Provider Helga Loo MD Other Provider [phone] Lexie STERLING, Dr. Hamm Other Provider Roel STERLING, Dr. Gustafson Other Provider Trina STERLING, Dr. Caballero Other Provider Giuliana STERLING, Dr. Aishwarya Brown Other Provider Neeraj STERLING, Dr. Elizalde Other Provider Alexandra STERLING, Dr. Cameron Other Provider [phone] Radha STERLING, Dr. Ramirez Other Provider Grabiel STERLING, Dr. Kirkland Other Provider Unavailable Cody STERLING, Shaileshsejose Other Provider Unavailable Shari STERLING, Dr. Perkins Other Provider Ivett CIFUENTES, Dr. Price Other Provider Dr. Ozzy Cabrera DO Attending Provider Chapo STERLING, Dr. Benton Attending Provider Rima STERLING, Dr. Singh Referring Provider Danielle MARLEY, Dr. Long Other Provider Naomi STERLING, Dr. Pereira Attending Provider Unavailjuarez Reese MD, Dr. Bernabe Mejias Primary Care Provider [phone] Naomi STERLING, Dr. Pereira Referring Provider UnavailDr. Kelli Fernando MD Attending Provider Unavailjuarez Salgado MD, Dr. Pereira Referring Provider UnavailBernabe Dee Primary Care Unavailable Bernabe Reese Referring Unavailable SchBernabe mac Attending Unavailable Bernabe Reese Primary Care Unavailable Kelli Morris Attending Unavailable Bernabe Reese Primary Care Unavailable Chula Antunez Admitting Unavailable Chula Antunez Consulting Unavailable Ozzy Cabrera Attending Unavailable Albert Root Consulting Unavailable Gregorio Mccarthy Consulting Unavailable Ozzy Cabrera Consulting Unavailable Bernabe Reese Referring Unavailable SchinBernabe subramanian Attending Unavailable Bernabe Reese Primary Care Unavailable Bernabe Reese Primary Care Unavailable Ramon Garcia Attending Unavailable Bernabe Reese Primary Care Unavailable Haily Santos Attending Unavailable Chula Antunez Admitting Unavailable Chula Antunez Consulting Unavailable Ozzy Cabrera Consulting Unavailable Daniel Dominique Consulting Unavailable Adeli, Amir Consulting Unavailable Hinduja, Elizabeth Consulting Unavailable Luke, Najma Consulting Unavailable Zha, Jessy Consulting Unavailable Daniel, Silas Consulting Unavailable Laura Flores Consulting Unavailable Dillan Guzman Consulting Unavailable Jing Joshi Consulting Unavailable Israel Schreiber Consulting Unavailable Helga Loo Consulting Unavailable Hansel Owen Consulting Unavailable Janay Sevilla Consulting Unavailable Ada Mena Consulting Unavailable Giuliana, Aishwarya Brown Consulting UnavailTonio Ureña Consulting Unavailable MorrisRakesh Consulting Unavailable James Garcia Consulting Unavailable Marita Spain Consulting Unavailable Christine Ross Consulting Unavailable Gregorio Mccarthy Consulting Unavailable Albert Root Consulting Unavailable Schinmarilynn, Bernabe E Primary Care Unavailable Ramon Garcia Attending Unavailable Ramon Garcia Referring Unavailable Kelli Salgado Referring Unavailable SchBernabe mac E Primary Care Unavailable Kelli Salgado Attending Unavailable Kelli Morris Attending Unavailable SchBernabe mac E Primary Care Unavailable Kelli Morris Attending Unavailable Bernabe Reese Primary Care Unavailable Kelli Morris Referring Unavailable Bernabe Reese E Primary Care Unavailable Kelli Morris Attending Unavailable Bernabe Reese E Primary Care Unavailable Kelli Morris Attending Unavailable Bernabe Reese Primary Care Unavailable Kelli Morris Attending Unavailable Bernabe Reese E Primary Care Unavailable Albert Root Referring Unavailable Ramon Garcia Attending Unavailable Bernabe Reese Primary Care Unavailable Ramon Garcia Attending Unavailable Ramon Garcia Referring Unavailable Bernabe Reese Primary Care Unavailable Albert Root Referring Unavailable Canelo Cavazos Attending Unavailable Bernabe Reese E Primary Care Unavailable SchBernabe mac Referring Unavailable SchBernabe mac Attending Unavailable TraciinBernabe subramanian E Primary Care Unavailable Jessica Baez Attending Unavail able SchinBernabe subramanian E Primary Care Unavailable Chetan Cowan Attending Unavailable Francisco Abarca Referring Unavailable SchinBernabe subramanian E Primary Care Unavailable Bernabe Angel NP Attending Unavailable Bernabe Reese E Primary Care Unavailable Albert Root Referring Unavailable Ramon Garcia Attending Unavailable Haiyl Santos Attending Unavailable Haily Santos Consulting Unavailable Chula Antunez Attending Unavailable Bernabe Reese E Primary Care Unavailable Bernabe Reese Attending Unavailable Mary Ann STERLING, Dr. Brenabe Mejias Primary Care Provider Radha DPM, Dr. Navarro Attending Provider Radha DPM, Dr. Navarro Referring Provider Ivett KEMPM, Dr. Price Referring Provider Ирина MARLEY, Dr. Ford Emergency Provider Tulio STERLING, Dr. Quiros Admit Provider Tulio STERLING, Dr. Quiros Other Provider Danielle MARLEY, Dr. Long Attending Provider Deborah MARLEY, Dr. Preciado Other Provider Trip STERLING, Daniel Other Provider Unavailable Nevaeh STERLING, Dr. Mullins Other Provider [phone] Triny STERLING, Elizabeth Other Provider Unavailable Luke MARLEY, Dr. Yao Other Provider Teresa STERLING, Dr. Jiménez Other Provider [phone] Daniel STERLING, Dr. Rosen Other Provider Mark STERLING, Dr. Sanchez Other Provider Thomas STERLING, Dr. Grimaldo Other Provider [phone] Adi STERLING, Dr. Sr Other Provider Abdoul STERLING, Dr. Wood Other Provider Eze STERLING, Helga Other Provider Lexie STERLING, Dr. Hamm Other Provider Roel STERLING, Dr. Gustafson Other Provider Trina STERLING, Dr. Caballero Other Provider Giuliana STERLING, Dr. Aishwarya Brown Other Provider Neeraj STERLING, Dr. Elizalde Other Provider Alexandra STERLING, Dr. Cameron Other Provider Radha STERLING, Dr. Ramirez Other Provider Grabiel STERLING, Dr. Kirkland Other Provider Unavailable Cody STERLING, Christine Other Provider Unavailable Shari STERLING, Dr. Perkins Other Provider Ivett CIFUENTES, Dr. Price Other Provider Dr. Ozzy Cabrera DO Attending Provider [phone] Chapo STERLING, Dr. Benton Attending Provider Rima STERLING, Dr. Singh Referring Provider Dr. Haily Santos DO Other Provider Naomi STERLING, Dr. Pereira Attending Provider Klever Salgado MD, Dr. Pereira Referring Provider Klever Salgado MD, Dr. Pereira Attending Provider Klever Salgado MD, Dr. Pereira Referring Provider Klever Cavazos MD, Dr. Canelo Pizarro Attending Provider Allergies Allergy Classification Reported Allergen(s) Allergy Type Date of Onset Reaction(s) Facility (19 sources) ampicillin; Translations: [AMPICILLIN] Drug Allergy 7 Hives [facility] Repository (20 sources) Penicillins; Translations: [PENICILLINS] Propensity to adverse reactions to drug (disorder) 7 Unknown [facility] Repository (16 sources) peanut allergenic extract Drug Allergy 1 Other, NEEDS FOLLOW-UP [facility] Comment on above: PEANUT BUTTER (3 sources) Peanut butter Allergy to substance [address] [facility] Work Phone: (1 source) peanut allergenic extract Drug Allergy [address] [facility] Repository Medications Current Medications Medication Drug Class(es) Dates Sig (Normalized) Sig (Original) acetaminophen 325 mg oral tablet (17 sources) Start: 10-16-2024 Start: 07-11-2023 End: 10-16-2024 Start: 12-03-2020 take 500 mg by mouth every six hours Acetaminophen Active 500 MG PO EVERY 6 HOURS December 03, 2020 12:00am take 2 tablets by or ut every eight hours as needed acetaminophen (TYLENOL EXTRA STRENGTH) 500 mg tablet Take 1,000 mg by mouth every 8 hours as needed. 0 Active Comment on above: Take 1,000 mg by maria g th every 8 hours as needed. amLODIPine 10 mg oral tablet (20 sources) Dihydropyridine Calcium Channel Rosie Start: 10-29-2024 Start: 02-18-2017 End: 10-30-2024 Comment on above: 1 tablet once daily. apixaban 5 mg oral tablet (20 sources) Factor Xa Inhibitor Start: 11-06-2024 Start: 10-02-2020 End: 10-30-2024 aspirin 81 mg chewable tablet (20 sources) Platelet Aggregation Inhibitor, Nonsteroidal Anti-inflammatory Drug Start: 10-24-2024 End: 11-06-2024 Start: 07-11-2023 End: 2024 Start: 12-03-2020 End: 03-12-2022 take 1 tablet by mouth once josiah y aspirin, enteric coated (ASPIRIN, ENTERIC COATED) 81 mg EC tablet Take 81 mg by mouth once daily. 0 Active Comment on above: Take 81 mg by mouth once daily. atorvastatin 40 mg oral tabl et (3 sources) HMG-CoA Reductase Inhibitor Start: 10-18-2024 End: 10-30-2024 Start: 10-17-2024 End: 10-18-2024 Calcium Carbonate-Mag Oxide (3 sources) Start: 10-01-2020 take 1 tablet by mouth once daily Calcium Carbonate-Mag Oxide Active 1 TABLET PO DAILY October 01, 2020 7:30pm Start: 10-01-2020 take 1 tablet by maria g th once daily Calcium Carbonate-Mag Oxide Active 1 TABLET PO DAILY October 01, 2020 12:00am carvedilol 3.125 mg oral tablet (6 sources) alpha-Adrenergic Rosie, beta-Adrenergic Rosie Start: 10-27-2024 End: 10-30-2024 Start: 10-21-2024 End: 10-27-2024 Start: 10-18-2024 End: 10-21-2024 Start: 10-17-2024 End: 10-18-2024 Drug or medicament (substanc e) (4 sources) Start: 10-30-2024 Start: 10-28-2024 End: 11-22-2024 take 750 mg intravenously every twelve hours fluconazole 200 mg oral tabl et (2 sources) Azole Antifungal Start: 10-22-2024 End: 11-29-2024 furosemide 20 mg oral tablet (15 sources) Loop Diuretic Start: 10-22-2024 End: 10-30-2024 Start: 10-17-2024 End: 10-19-2024 Start: 10-17-2024 End: 10-17-2024 Start: 05-23-2023 End: 09-25-2024 1.5 ml insulin glargine 300 unt/ml pen injector (20 sources) Insulin Analog Start: 10-30-2024 Start: 09-27-2022 Insulin Glargi ne U-300 Conc (Toujeo Max U-300 Solostar) 300 unit/mL (3 mL) insulin pen Active 55 U SC AT BEDTIME September 27, 2022 9:04am Start: 09-27-2022 Insulin Glargi ne U-300 Conc (Toujeo Max U-300 Solostar) 300 unit/mL (3 mL) insulin pen Active 50 UNIT SC AT BEDTIME September 27, 2022 9:04am Start: 03-12-2022 End: 09-27-2022 Insulin Glargine U-300 Conc (Toujeo Max U-300 Solostar) 300 unit/mL (3 mL) insulin pen Discontinued 40 U SC AT BEDTIME March 12, 2022 10:09am September 27, 2022 9:05am Start: 11-07-2020 End: 09-27-2022 Start: 11-07-2020 End: 03-12-2022 Insulin Glargine U-300 Conc (Toujeo Max U-300 Solostar) 300 unit/mL (3 mL) insulin pen Discontinued 30 U SC DAILY November 07, 2020 12:00am March 12, 2022 10:10am Insulin Glargine U-300 Conc (Toujeo Max U-300 Solostar) 300 unit/mL (3 mL) insulin pen (4 sources) Start: 09-27-2022 Insulin Glargi ne U-300 Conc (Toujeo Max U-300 Solostar) 300 unit/mL (3 mL) insulin pen Active 25 U SC AT BEDTIME September 27, 2022 9:04am 3 ml insulin lispro 100 unt/ml pen injector (1 source) Insulin Analog Start: 10-30-2024 isopropyl alcohol 0.7 ml/ml medicated pad (1 source) Start: 10-30-2024 losartan potassium 50 mg oral tablet (20 sources) Angiotensin 2 Receptor Rosie Start: 10-24-2024 End: 10-30-2024 Start: 10-23-2024 End: 10-23-2024 Start: 04-04-2014 End: 10-28-2024 Comment on above: 1 tablet once daily. meropenem 1000 mg injection (3 sources) Penem Antibacterial Start: 10-16-2024 metFORMIN hydrochloride 1000 mg oral tablet (18 sources) Biguanide Start: 04-04-2014 Comment on above: 1 tablet twice daily . Wfbucgma-Jsv-Vl-Lycopen -Lutein (7 sources) Start: 10-01-2020 take 1 tablet by mouth once daily Eskzmqtr-Wzh-Gl -Lycopen-Lutein Active 1 TABLET PO DAILY October 01, 2020 7:30pm Start: 10-01-2020 take 1 tablet by maria g th once daily Vclgdulw-Xul-Mb-Lycopen-Lutein Active 1 TABLET PO DAILY September 30, 2020 11:00pm Start: 10-01-2020 take 1 tablet by maria g th once daily Svlpwnjx-Irk-If-Lycopen-Lutein Active 1 TABLET PO DAILY October 01, 2020 12:00am Bw-Qey-Mgujv-C6-Vhrtoqu-Tric in (3 sources) Start: 10-01-2020 take 1 tablet by mouth once daily Hq-Sdf-Ehbnt-A5-Kbztcdm-Mfqusk Active 1 TABLET PO DAILY September 30, 2020 11:00pm Start: 10-01-2020 take 1 tablet by maria g th once daily Mh-Zst-Jgkmn-L4-Fjyqhnk-Rdsxpn Active 1 TABLET PO DAILY October 01, 2020 12:00am Fz-Dxn-Qqcch-W9-Askplab-Bork in 1 EACH tablet (5 sources) Start: 10-01-2020 take 1 tablet by mouth once daily Uq-Ygd-Vkrqb-P0-Tfykbey-Ksxwds 1 EACH tablet Active 1 {tbl} PO DAILY October 01, 2020 12:00am Pen Needle, Diabetic (2 sources) Start: 05-23-2023 Pen Needle, Diabetic Active 0 .Route 1200 May 23, 2023 1:00am As directed Start: 05-23-2023 Pen Needle, Di abetic Active 0 .Route 1200 May 23, 2023 12:00am As directed polyethylene glycol 3350 170 00 mg powder for oral solution (3 sources) Osmotic Laxative Start: 10-18-2024 End: 10-30-2024 sennosides, jail 8.6 mg oral tablet (3 sources) Start: 10-18-2024 End: 10-30-2024 (2 sources) Start: 10-29-2024 Start: 10-26-2024 End: 10-30-2024 (2 sources) Start: 10-28-2024 Start: 10-25-2024 End: 10-30-2024 (2 sources) Start: 10-30-2024 Completed/Discontinued Medications Medication Drug Class(es) Dates Sig (Normalized) Sig (Original) acetaZOLAMIDE 500 mg injection (3 sources) Carbonic Anhydrase Inhibitor Start: 10-19-2024 End: 10-21-2024 albuterol 0.833 mg/ml / ipratropium bromide 0.167 mg/ml inhalation solution (1 source) Anticholinergic, beta2-Adrenergic Agonist Start: 10-17-2024 End: 10-30-2024 take 3 mL by inhalation every six hours as needed alogliptin 25 mg / pioglitazone 30 mg oral tablet (16 sources) Peroxisome Proliferator Receptor alpha Agonist, Peroxisome Proliferator Receptor gamma Agonist, Thiazolidinedione Start: 04-04-2014 End: 09-17-2014 Start: 04-04-2014 End: 09-17-2014 Alogliptin-Pioglitazone (Ose ni 25-30 Mg Tablet) 1 EACH tablet Discontinued 25 - 30 mg DAILY April 04, 2014 12:00am September 17, 2014 8:43am amoxicillin 875 mg / clavula annemarie 125 mg oral tablet (4 sources) Penicillin-class Antibacterial Start: 2024 End: 10-16-2024 Start: 2024 End: 10-16-2024 Amoxicillin-Pot Clavulanate 875-125 mg tablet Discontinued 1 {tbl} PO TWICE A DAY 2024 12:00am October 16, 2024 9:25am bisacodyl 10 mg rectal suppo sitory (2 sources) Stimulant Laxative Start: 10-19-2024 End: 10-30-2024 Start: 10-18-2024 End: 10-18-2024 cephalexin 500 mg oral capsu le (20 sources) Cephalosporin Antibacterial Start: 12-03-2022 End: 03-24-2023 Start: 12-09-2020 End: 05-13-2021 clindamycin 300 mg oral caps ule (8 sources) Lincosamide Antibacterial Start: 05-23-2023 End: 06-01-2023 diphenhydrAMINE hydrochlorid e 25 mg oral capsule (16 sources) Histamine-1 Receptor Antagonist Start: 04-04-2014 End: 09-17-2014 0.3 ml enoxaparin sodium 100 mg/ml prefilled syringe (3 sources) Low Molecular Weight Heparin Start: 10-21-2024 End: 10-30-2024 Start: 10-19-2024 End: 10-21-2024 Start: 10-18-2024 End: 10-19-2024 ferrous sulfate 325 mg oral tablet (13 sources) Start: 03-12-2022 End: 05-21-2023 gabapentin 400 mg oral capsu le (20 sources) Anti-epileptic Agent Start: 10-25-2024 End: 10-30-2024 Start: 10-21-2024 End: 10-25-2024 Start: 10-17-2024 End: 10-21-2024 Start: 11-29-2022 Start: 11-29-2022 take 1 tablet by maria g th four times daily Gabapentin 800 mg tablet Active 800 mg PO .QID November 29, 2022 12:00am Start: 11-29-2022 Gabapentin Act andrew 800 MG THREE TIMES A DAY November 29, 2022 12:00am Start: 09-27-2022 take 600 mg by mouth three times daily Gabapentin Active 600 MG PO THREE TIMES A DAY September 27, 2022 12:00am Start: 03-12-2022 End: 09-27-2022 Start: 10-01-2020 End: 03-12-2022 Start: 02-18-2017 gabapentin (NE URONTIN) 300 mg capsule 1 capsule three times daily. 0 02/18/2017 Active Comment on above: 1 capsule three time s daily. glimepiride 4 mg oral tablet (1 source) Sulfonylurea Start: 02-18-2017 glimepiride (AMARYL) 4 mg tablet 1 tablet once daily. 0 02/18/2017 Active Comment on above: 1 tablet once daily. hydrALAZINE hydrochloride 25 mg oral tablet (1 source) Arteriolar Vasodilator Start: 10-17-2024 End: 10-18-2024 hydrOXYzine hydrochloride 25 mg oral tablet (1 source) Antihistamine Start: 10-24-2024 End: 10-30-2024 5 ml levETIRAcetam 100 mg/ml injection (1 source) Start: 10-16-2024 End: 10-16-2024 lidocaine hydrochloride 0.02 mg/mg topical gel (1 source) Antiarrhythmic, Amide Local Anesthetic Start: 10-17-2024 End: 10-17-2024 linezolid 600 mg oral tablet (16 sources) Oxazolidinone Antibacterial Start: 12-09-2020 End: 05-13-2021 50 ml magnesium sulfate 80 mg/ml injection (1 source) Start: 10-16-2024 End: 10-22-2024 meloxicam 15 mg oral tablet (1 source) Nonsteroidal Anti-inflammatory Drug Start: 03-09-2017 meloxicam (MOBIC) 15 mg tablet 1 tablet once daily. 0 03/09/2017 Active Comment on above: 1 tablet once daily. metoprolol tartrate 25 mg oral tablet (20 sources) beta-Adrenergic Rosie Start: 10-16-2024 End: 10-17-2024 Start: 10-16-2024 End: 10-16-2024 Start: 12-03-2020 End: 2024 Start: 12-03-2020 take 1 tablet by maria g once daily Metoprolol Succinate (Toprol Xl) 100 mg Tablet Extended Release 24 Hr Active 100 MG PO DAILY December 03, 2020 5:00pm Start: 10-01-2020 End: 10-02-2020 Start: 02-18-2017 End: 10-28-2024 Comment on above: 1 tablet twice daily . metroNIDAZOLE 500 mg oral tablet (16 sources) Nitroimidazole Antimicrobial Start: 12-09-2020 End: 05-13-2021 200 ml niCARdipine hydrochloride 0.2 mg/ml injection (1 source) Dihydropyridine Calcium Channel Rosie Start: 10-16-2024 End: 10-17-2024 nystatin 367740 unt/ml / triamcinolone acetonide 1 mg/ml topical cream (16 sources) Polyene Antifungal, Corticosteroid Start: 04-04-2014 End: 09-17-2014 Start: 04-04-2014 End: 09-17-2014 Nystatin-Triamcinolone 1 MADHURI LIC Tube Discontinued 1 NMA TOPICAL THREE TIMES A DAY April 04, 2014 12:00am September 17, 2014 8:42am Start: 04-04-2014 End: 09-17-2014 Nystatin-Triamcinolone Disco ntinued 1 APPLIC TOPICAL THREE TIMES A DAY April 04, 2014 12:00am September 17, 2014 8:42am pioglitazone 45 mg oral tablet (1 source) Peroxisome Proliferator Receptor alpha Agonist, Peroxisome Proliferator Receptor gamma Agonist, Thiazolidinedione Start: 03-12-2017 pioglitazone (ACTOS) 45 mg tablet 1 tablet once daily. 0 03/12/2017 Active Comment on above: 1 tablet once daily. rivaroxaban 20 mg oral tablet (20 sources) Factor Xa Inhibitor Start: 05-13-2021 End: 05-13-2021 rosuvastatin 10 mg oral capsule (8 sources) HMG-CoA Reductase Inhibitor Start: 03-24-2023 End: 05-21-2023 take 1 tablet by mouth once daily Rosuvastatin 10 mg tablet Discontinued 10 mg PO DAILY March 24, 2023 12:00am May 21, 2023 4:56pm 500 ml sodium chloride 30 mg/ml injection (8 sources) Start: 10-17-2024 End: 10-18-2024 Start: 10-16-2024 End: 10-23-2024 Start: 10-16-2024 End: 10-30-2024 Start: 10-16-2024 End: 10-16-2024 Start: 10-16-2024 End: 10-16-2024 tadalafil 20 mg oral tablet (16 sources) Phosphodiesterase 5 Inhibitor Start: 04-04-2014 End: 04-04-2014 Testosterone (16 sources) Androgen Start: 04-04-2014 End: 04-04-2014 Testosterone (Androgel) 1.25 GM Gel.Packet Discontinued DAILY April 04, 2014 8:51am April 04, 2014 9:07am Start: 04-04-2014 End: 04-04-2014 Start: 04-04-2014 End: 04-04-2014 Testosterone (Androgel) 1.25 GM Gel.Packet Discontinued DAILY April 03, 2014 11:00pm April 04, 2014 8:07am Start: 04-04-2014 End: 04-04-2014 Testosterone (Androgel) 1.25 GM Gel.Packet Discontinued DAILY April 04, 2014 12:00am April 04, 2014 9:07am 200 ml vancomycin 5 mg/ml injection (4 sources) Glycopeptide Antibacterial Start: 10-19-2024 End: 10-20-2024 take 1000 mg intravenously every twelve hours Start: 10-16-2024 vitamin b6 100 mg oral tablet (17 sources) Start: 03-21-2017 End: 03-12-2022 Comment on above: Take 1 tablet by mouth once daily. (1 source) Start: 10-28-2024 End: 10-30-2024 inject 28 [IU] by subcutaneous injection every twenty-four hours (19 sources) Start: 10-22-2024 End: 10-30-2024 [Order 1 Start] Name: magnesium oxide (MAG-OX) tablet 800 mg Signed Summary: 800 mg, Oral, ADMINISTER DIRECTED, Starting on Tue10/22/24 at 1426, Until Tue10/30/24 at 1241, See admin instructions, Medicine Electrolyte Replacement Protocol, EXCLUDE: Dialysis Patients, those with CrCl less than 30 mL/min, weight less than 50 kg; or for history of renal transplant. Administer for magnesium level of 1.6-1.9 mg/dL. Draw magnesium level with next day morning labs. [Order 1 End] [Order 2 Start] Name: magnesium oxide (MAG-OX) tablet 800 mg Signed Summary: 800 mg, Per NG tube, ADMINISTER DIRECTED, Starting on Tue10/22/24 at 1426, Until Tue10/30/24 at 1241, See admin instructions, Medicine Electrolyte Replacement Protocol, EXCLUDE Dialysis Patients, those with CrCl less than 30 mL/min, weight less than 50 kg; or for history of renal transplant. Administer for magnesium level of 1.6-1.9 mg/dL. Draw magnesium level with next day morning labs. [Order 2 End] [Order 3 Start] Name: Magnesium sulfate 4 g in sterile water 50 ml premix IVPB Signed Summary: 4 g, Intravenous, Administer over 4 Hours, ADMINISTER DIRECTED, Starting on Tue10/22/24 at 1426, Until Tue10/30/24 at 1241, Other, Medicine Electrolyte Replacement Protocol, EXCLUDE Dialysis Patients, those with CrCl less than 30 mL/min, weight less than 50 kg; or for history of renal transplant. Administer for Magnesium level less than or equal to 1.5 mg/dL. Repeat Magnesium level eight (8) hours after each infusion if most recent magnesium level is less than 1.3 mg/dL. Draw with next day morning labs after replacements for previous magnesium levels between 1.3-1.9 mg/dL. [Order 3 End] Start: 10-22-2024 End: 10-30-2024 [Order 1 Start] Name: Potass ium chloride (K-DUR) tablet ER 40-60 mEq Signed Summary: 40-60 mEq, Oral, ADMINISTER DIRECTED, Starting on Tue10/22/24 at 1426, Until Tue10/30/24 at 1241, See admin instructions, Medicine Electrolyte Replacement Protocol - Non-Cardiology Replacement, -Swallow tablets whole; do not crush, chew, or suck on tablet. Tablet may also be broken in half and each half swallowed separately.- EXCLUDE: Dialysis Patients, those with CrCl less than 30 mL/min, weight less than 50 kg; or for history of renal transplant. Review magnesium level and administer magnesium prior to potassium replacement if indicated. For potassium level 3 - 3.5 mmol/L administer 40 mEq. Recheck potassium level with morning labs next day. For potassium level less than 3 mmol/L administer 60 mEq. Recheck potassium level 8 hours after dose administered. [Order 1 End] [Order 2 Start] Name: Potassium Bicarb-Citric Acid (Effer-K) 20 MEQ effervescent tablets for oral solution 40-60 mEq Signed Summary: 40-60 mEq, Per NG tube, ADMINISTER DIRECTED, Starting on Tue10/22/24 at 1426, Until Tue10/30/24 at 1241, Other, Medicine Electrolyte Replacement Protocol - Non-Cardiology Replacement - see administration instructions, Do not swallow whole. Dissolve completely in 3-4 ounces of water or cold juice before drinking. If administering via J tube, dilute in sterile water, wait for tablet to stop fizzing, swirl the solution and draw into a syringe suitable for attaching to the tube. After administration, flush tube with 15-30 ml water. EXCLUDE: Dialysis Patients, those with CrCl less than 30 mL/min, weight less than 50 kg; or for history of renal transplant. Review magnesium level and administer magnesium prior to potassium replacement if indicated. For potassium level 3 - 3.5 mmol/L administer 40 mEq. Recheck potassium level with morning labs next day. For potassium level less than 3 mmol/L administer 60 mEq. Recheck potassium level 8 hours after dose administered. [Order 2 End] Start: 10-20-2024 End: 10-30-2024 take 750 mg intravenously every twelve hours Start: 10-19-2024 End: 10-22-2024 take 100 mg intravenously every twenty-four hours Start: 10-19-2024 End: 10-30-2024 inject 28 [IU] by subcutaneous injection every twenty-four hours [Order 1 Start] Name: insulin glargine-yfgn (SEMGLEE) injection 28 Units Signed Summary: 28 Units, Subcutaneous, EVERY 24 HOURS, First dose (after last modification) on Tue10/19/24 at 1200, Until Discontinued, Do not mix in syringe with other insulins. [Order 1 End] [Order 2 Start] Name: NOTIFY PHYSICIAN, OTHER Signed Summary: Routine, CONTINUOUS, Starting on Tue10/19/24 at 0825, Until Specified, Who to Notify: [facility], Call [facility] if a.m. Glucose is less than 80 and dose reduction not already ordered. [Order 2 End] Start: 10-19-2024 End: 10-30-2024 apply 7.5 g by subcutaneous injection once [Order 1 Start] Name: Insulin lispro (HUMALOG) injection Signed Summary: Subcutaneous, 4 TIMES DAILY WITH MEALS & AT BEDTIME, First dose on Tue10/19/24 at 0830, Until Discontinued, Insulin to carb ratio: Non-Standard: 1 unit insulin = 6 grams carbs every meal and at bedtime Correction Factor: 151-175 = 1 unit; 176-200 = 2 units; 201-225 = 3 units; 226-250 = 4 units; 251-275 = 5 units; 276-300 = 6 units; 301-325 = 7 units; 326-350 = 8 units; Kwikpen: Prime pen before each injection; refer to Pen Priming and Care Handout for further details. Warning! Confirm patient. Insulin pen is for labeled individual patient use ONLY. [Order 1 End] [Order 2 Start] Name: Insulin lispro (HUMALOG) injection Signed Summary: Subcutaneous, NEEDED, Starting on Tue10/19/24 at 0824, Until Tue10/30/24 at 1241, Other, As needed for snacks, Insulin to carb ratio: 1 unit insulin = 6 grams carbs Correction Factor: not to be used with this order. Kwikpen: Prime pen before each injection; refer to Pen Priming and Care Handout for further details. Warning! Confirm patient. Insulin pen is for labeled individual patient use ONLY. [Order 2 End] [Order 3 Start] Name: BLOOD GLUCOSE (POC DEVICE) Signed Summary: Routine, 4 TIMES DAILY BEFORE MEALS & AT BEDTIME, First occurrence on Tue10/19/24 at 1030, If any Blood Glucose (POC) is greater than 300mg/dl, then repeat Blood Glucose (POC) in 2 hours. If the initial blood glucose was greater than 300mg/dl and if second blood glucose is greater than 200md/dl, then notify [facility]. [Order 3 End] [Order 4 Start] Name: BLOOD GLUCOSE (POC DEVICE) Signed Summary: Routine, DIRECTED, Starting on Tue10/19/24 at 0824, Until Specified, For all Blood Glucose LESS THAN 80 mg/dL, treat per Hypoglycemia in Non- Adults Clinical Practice Guideline (CPG) and recheck glucose 15 min after treatment. Repeat per CPG until glucose GREATER THAN 80 mg/dL. Once glucose IS GREATER THAN 80 mg/dL, recheck Blood Glucose every 1 hour x2, then resume as previously ordered. For Blood Glucose LESS THAN 80 mg/dL on admission OR LESS than 45 mg/dL at any time, obtain POC Blood Glucose every 4 hours for 6 occurrences AFTER treating per CPG. Obtain blood glucose for symptoms of hypoglycemia: sweating, shaking, fatigue, rapid pulse, slow thinking & dizziness. Notify physician w/results. Obtain blood glucose for symptoms of hyperglycemia: excessive thirst, blurred vision, excessive urination & tiredness. Notify physician w/results. If patient NPO, obtain POC Blood Glucose prior to administration of any insulin products. [Order 4 End] [Order 5 Start] Name: COMMUNICATION ORDER FOR NURSING CARE: For Blood Glucose LESS THAN 80 mg/dl Signed Summary: Routine, CONTINUOUS, Starting on Tue10/19/24 at 0825, Until Specified, For Blood Glucose LESS THAN 80 mg/dl follow Hypoglycemia in Non- Adults Clinical Practice Guideline (CPG) [Order 5 End] [Order 6 Start] Name: Dextrose 50% injection 7.5-25 g Signed Summary: 7.5-25 g, Intravenous, ADMINISTER DIRECTED, Starting on Tue10/19/24 at 0824, Until Tue10/30/24 at 1241, Blood glucose <80 mg/dL, For patients who are not alert, are NPO, or are on IV insulin infusion administer as directed per Hypoglycemia in Non- Adults Clinical Practice Guideline. For Blood Glucose: 60-79 mg/dL administer 7.5 gm (15ml); 45-59 mg/dL administer 12.5 gm (25ml); less than 45mg/dL administer 25gm (50ml). ++ If additional dextrose 50% needed, contact pharmacy or obtain from [facility] cart ++ [Order 6 End] [Order 7 Start] Name: glucose (GLUTOSE) 40 % oral gel 1-2 Tube Signed Summary: 1-2 Tube, Oral, ADMINISTER DIRECTED, Starting on Tue10/19/24 at 0824, Until Tue10/30/24 at 1241, Blood glucose <80 mg/dL, For patients who are alert, able to tolerate PO intake and with intact cognitive status administer as directed per Hypoglycemia in Non- Adults Clinical Practice Guideline. For Blood Glucose: 60-79 mg/dL administer 1 tube; 45-59 mg/dl administer 1.5 tubes; less than 45 mg/dL administer 2 tubes. Each tube of 37.5g delivers 15g of carbohydrate. [Order 7 End] [Order 8 Start] Name: NOTIFY PHYSICIAN, Blood Glucose LESS THAN 80 mg/dl Signed Summary: Routine, CONTINUOUS, Starting on Tue10/19/24 at 0825, Until Specified, Who to Notify: [facility], For all Blood Glucose LESS THAN 80 mg/dl, notify [facility] after treatment per Hypoglycemia in Non- Adults Clinical Practice Guideline [Order 8 End] [Order 9 Start] Name: Carbohydrate counts with meals Signed Summary: Routine, CONTINUOUS, Starting on Tue10/19/24 at 0825, Until Specified, Carbohydrate counts are to be done after each patient meal and with snack. [Order 9 End] Start: 10-18-2024 End: 10-18-2024 Start: 10-18-2024 End: 10-19-2024 inject 32 [IU] by subcutaneous injection every twenty-four hours Start: 10-17-2024 End: 10-18-2024 Start: 10-17-2024 End: 10-30-2024 take 1 g intravenously every eight hours Start: 10-17-2024 End: 10-17-2024 Start: 10-16-2024 End: 10-30-2024 take 10 mg intravenously every hour as needed [Order 1 Start] Name: hydrALAZINE (APRESOLINE) injection 10 mg Signed Summary: 10 mg, Intravenous, EVERY 1 HOUR NEEDED, Starting on Tue10/16/24 at 2243, Until Tue10/30/24 at 1241, See administration instructions, Use as initial dose for Systolic Blood Pressure GREATER than 160 mmHg and Heart rate LESS than 60 beats per minute. Higher dose may be administered if lower dose was previously documented as ineffective 10 minutes after administration and did not result in adverse effects (HR>90) [Order 1 End] [Order 2 Start] Name: hydrALAZINE (APRESOLINE) injection 20 mg Signed Summary: 20 mg, Intravenous, EVERY 1 HOUR NEEDED, Starting on Tue10/16/24 at 2243, Until Tue10/30/24 at 1241, See administration instructions, Higher dose may be administered for Systolic Blood Pressure GREATER than 160 mmHg and Heart rate LESS than 60 beats per minute if lower dose was previously documented as ineffective 10 minutes after administration and did not result in adverse effects (HR>90). Decrease back to lower dose if patient has adverse effects, or no PRN used in previous 3 hours [Order 2 End] Start: 10-16-2024 End: 10-30-2024 take 10 mg intravenously every hour as needed [Order 1 Start] Name: Labetalol (NORMODYNE) injection 10 mg Signed Summary: 10 mg, Intravenous, EVERY 1 HOUR NEEDED, Starting on Tue10/16/24 at 2243, Until Tue10/30/24 at 1241, See admininstration instructions, Use as initial dose for Systolic Blood Pressure GREATER than 160 mmHg and Heart Rate GREATER than 60 beats per minute. Higher dose may be administered if lower dose was previously documented as ineffective 10 minutes after administration and did not result in adverse effects (HR<60) For vials: labetalol should be treated as a SINGLE USE VIAL. Discard remaining contents after one use. [Order 1 End] [Order 2 Start] Name: Labetalol (NORMODYNE) injection 20 mg Signed Summary: 20 mg, Intravenous, EVERY 1 HOUR NEEDED, Starting on Tue10/16/24 at 2243, Until Tue10/30/24 at 1241, See administration instructions, For Systolic Blood Pressure GREATER than 160 mmHg and if Heart Rate GREATER than 60 beats per minute. Higher dose may be administered if lower dose was previously documented as ineffective 10 minutes after administration and did not result in adverse effects (HR<60). Decrease back to lower dose if patient has adverse effects, or no PRN used in previous 3 hours For vials: labetalol should be treated as a SINGLE USE VIAL. Discard remaining contents after one use. [Order 2 End] Start: 10-16-2024 End: 10-17-2024 take 1 g intravenously every eight hours Start: 07-11-2023 Start: 05-23-2023 Start: 03-24-2023 End: 05-21-2023 Start: 09-27-2022 Start: 10-01-2020 (1 source) Start: 10-17-2024 End: 10-18-2024 take 1250 mg intravenously every twelve hours (1 source) Start: 10-16-2024 End: 10-16-2024 Problems Active Problems Problem Classification Problem Date Documented Date Episodic/Chronic Acute cerebrovascular disease (19 sources) Ischemic stroke; Translations: [Intracranial hemorrhage] Onset: 10-16-2024 10-30-2024 Chronic Bacterial infection; unspecified site (20 sources) Bacteremia caused by Gram-positive bacteria; Translations: [Bacteremia] Onset: 10-16-2024 11-30-2022 Episodic Cardiac dysrhythmias (20 sources) Atrial fibrillation; Translations: [Unspecified atrial fibrillation] Onset: 10-01-2020 Chronic Chronic ulcer of skin (20 sources) Chronic ulcer of foot; Translations: [Non-pressure 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] Onset: 10-16-2024 12-16-2020 Chronic Deficiency and other anemia (18 sources) Iron deficiency anemia; Translations: [Iron deficiency anemia, unspecified] 03-09-2022 Episodic Deficiency and other anemia (3 sources) Iron deficiency anemia, unspecified; Translations: [Iron deficiency anemia, unspecified] Onset: 11-18-2024 Episodic Diabetes mellitus with complications (20 sources) Type 2 diabetes mellitus; Translations: [Type 2 diabetes mellitus with diabetic polyneuropathy] Onset: 03-16-2017 02-24-2021 Chronic Diabetes mellitus with complications (1 source) Type 2 diabetes mellitus with other diabetic neurological complication; Translations: [Type 2 diabetes mellitus with other diabetic neurological complication] Onset: 02-10-2018 Diabetes mellitus without complication (20 sources) Diabetes mellitus; Translations: [Type 2 diabetes mellitus without complications] 12-07-2020 Chronic Diseases of white blood cells (14 sources) Leukocytosis; Translations: [Elevated white blood cell count, unspecified] Onset: 10-16-2024 11-28-2022 Chronic Disorders of lipid metabolism (20 sources) Hyperlipidemia; Translations: [Hyperlipidemia, unspecified] Chronic E Codes: Fall (11 sources) Fall; Translations: [Unspecified fall, initial encounter] 11-28-2022 Episodic Essential hypertension (20 sources) Essential hypertension; Translations: [Essential (primary) hypertension] Chronic Fluid and electrolyte disorders (4 sources) Lactic acidosis; Translations: [Lactic acidosis] 2024 Episodic Fracture of lower limb (16 sources) Fracture of foot ; Translations: [Unspecified fracture of left foot, initial encounter for closed fracture] 12-07-2020 Episodic Genitourinary symptoms and ill-defined conditions (10 sources) Dysuria; Translations: [Dysuria] 05-21-2023 Episodic Infective arthritis and osteomyelitis (except that caused by tuberculosis or sexually transmitted disease) (20 sources) Osteomyelitis; Translations: [Osteomyelitis, unspecified] Onset: 10-16-2024 12-07-2020 Chronic Malaise and fatigue (10 sources) Asthenia; Translations: [Weakness] 05-21-2023 Episodic Neoplasms of unspecified nature or uncertain behavior (2 sources) Monoclonal gammopathy; Translations: [Monoclonal gammopathy of uncertain significance] Onset: 03-16-2017 03-16-2017 Chronic Nonspecific chest pain (15 sources) Chest pain; Translations: [Chest pain, unspecified] 09-27-2022 Episodic Osteoarthritis (10 sources) Osteoarthritis of left knee joint; Translations: [Unilateral primary osteoarthritis, left knee] 11-28-2022 Chronic Other aftercare (20 sources) Long-term current use of anticoagulant; Translations: [intermediate project manager (current) use of anticoagulants] 11-28-2022 Episodic Other aftercare (1 source) long-term (current) use of anticoagulants; Translations: [Long-term (current) use of anticoagulants] 12-03-2022 Episodic Other aftercare (1 source) Taking high risk medication; Translations: [Other watermaster (current) drug therapy] 10-22-2024 Episodic Other aftercare (2 sources) long-term (current) use of insulin; Translations: [intermediate project manager (current) use of insulin] Onset: 10-16-2024 Episodic Other aftercare (2 sources) Other watermaster (current) drug therapy; Translations: [Other fci (current) drug therapy] Onset: 10-16-2024 Episodic Other aftercare (4 sources) Follow-up orthopedic assessment; Translations: [Encounter for other orthopedic aftercare] 12-04-2024 Episodic Other aftercare (1 source) Encounter for other orthopedic aftercare; Translations: [Encounter for other orthopedic aftercare] Onset: 12-11-2024 Episodic Other bone disease and musculoskeletal deformities (6 sources) Acquired absence of other left toe(s); Translations: [History of partial ray amputation of fifth toe of left foot] 12-16-2020 Episodic Other circulatory disease (10 sources) Peripheral vascular disease; Translations: [Other specified peripheral vascular diseases] 09-25-2024 Chronic Other circulatory disease (2 sources) Other specified peripheral vascular diseases; Translations: [Other specified peripheral vascular diseases] Onset: 11-18-2024 Chronic Other circulatory disease (2 sources) Personal history of other diseases of the circulatory system; Translations: [Personal history of other diseases of the circulatory system] Onset: 02-10-2018 Episodic Other diseases of veins and lymphatics (8 sources) Peripheral venous insufficiency; Translations: [Venous insufficiency (chronic) (peripheral)] 05-23-2023 Episodic Other diseases of veins and lymphatics (2 sources) Venous insufficiency (chronic) (peripheral); Translations: [Venous (peripheral) insufficiency, unspecified] 05-23-2023 Episodic Other injuries and conditions due to external causes (10 sources) Closed injury of head; Translations: [Unspecified injury of head, initial encounter] 11-28-2022 Episodic Other lower respiratory disease (16 sources) Dyspnea on exertion; Translations: [Dyspnea, unspecified] 10-01-2020 Episodic Other lower respiratory disease (8 sources) Hypoxemia; Translations: [Hypoxemia] 05-21-2023 Episodic Other lower respiratory disease (2 sources) Hypoxemia; Translations: [Hypoxemia] 05-23-2023 Episodic Other lower respiratory disease (1 source) Other forms of dyspnea; Translations: [Other respiratory abnormalities] 07-11-2023 Episodic Other nervous system disorders (1 source) Polyneuropathy in diseases classified elsewhere; Translations: [Polyneuropathy in diseases classified elsewhere] Onset: 03-16-2017 Chronic Other nervous system disorders (16 sources) Neuropathy of lower limb; Translations: [Unspecified mononeuropathy of unspecified lower limb] 12-03-2020 Chronic Other nervous system disorders (1 source) Polyneuropathy associated with another disorder; Translations: [Polyneuropathy in diseases classified elsewhere] Onset: 03-16-2017 03-16-2017 Chronic Other nutritional; endocrine; and metabolic disorders (16 sources) Morbid obesity; Translations: [Morbid (severe) obesity due to excess calories] 12-03-2020 Chronic Other nutritional; endocrine; and metabolic disorders (16 sources) Alveolar hypoventilation; Translations: [Morbid (severe) obesity with alveolar hypoventilation] 10-02-2020 Chronic Other nutritional; endocrine; and metabolic disorders (2 sources) Body mass index 40+ - severely obese; Translations: [Morbid (severe) obesity due to excess calories] Onset: 03-16-2017 03-16-2017 Chronic Other nutritional; endocrine; and metabolic disorders (3 sources) Morbid (severe) obesity due to excess calories; Translations: [Morbid obesity] 05-23-2023 Chronic Other nutritional; endocrine; and metabolic disorders (1 source) Morbid (severe) obesity with alveolar hypoventilation; Translations: [Obesity hypoventilation syndrome] 07-11-2023 Chronic Other nutritional; endocrine; and metabolic disorders (2 sources) Body mass index (BMI) 50.0-59.9, adult; Translations: [Body mass index (BMI) 50.0-59.9, adult] Onset: 10-16-2024 Chronic Other skin disorders (16 sources) Dystrophia unguium; Translations: [Nail dystrophy] 12-07-2020 Episodic Residual codes; unclassified (16 sources) Bilateral lower limb edema; Translations: [Localized edema] 11-06-2020 Episodic Residual codes; unclassified (10 sources) Acute confusion; Translations: [Disorientation, unspecified] 11-28-2022 Episodic Residual codes; unclassified (1 source) Disorientation, unspecified; Translations: [Delirium due to conditions classified elsewhere] 12-03-2022 Episodic Skin and subcutaneous tissue infections (20 sources) Cellulitis and abscess of lower limb; Translations: [Cellulitis of unspecified part of limb] 12-03-2020 Episodic Thyroid disorders (1 source) Nontoxic single thyroid nodule; Translations: [Nontoxic single thyroid nodule] Onset: 02-28-2024 Chronic Unclassified (4 sources) Localized edema; Translations: [Edema] Onset: 02-10-2018 05-23-2023 Episodic Unclassified (2 sources) Unknown / UNK(Unknown) Onset: 04-05-2017 Unclassified (2 sources) Chronic atrial fibrillation, unspecified; Translations: [Chronic atrial fibrillation, unspecified] Onset: 10-16-2024 Urinary tract infections (11 sources) Acute urinary tract infection; Translations: [Urinary tract infection, site not specified] 11-28-2022 Episodic Past or Other Problems Problem Classification Problem Date Documented Da te Episodic/Chronic Deficiency and other anemia (1 source) Anemia, unspecified; Translations: [Anemia, unspecified] Onset: 03-16-2017 Episodic Deficiency and other anemia (1 source) Anemia; Translations: [Anemia, unspecified] Onset: 03-16-2017 03-16-2017 Episodic Diabetes mellitus without complication (1 source) Diabetes mellitus without complication Onset: 11-24-2017 Other screening for suspected conditions (not mental disorders or infectious disease) (1 source) Encounter for screening for malignant neoplasm of prostate; Translations: [Encounter for screening for malignant neoplasm of prostate] Onset: 08-17-2024 Episodic Other skin disorders (1 source) Other skin changes; Translations: [Other skin changes] Onset: 03-16-2017 Episodic Results Test Name Value Interpretation Reference Range Facility Absolute lymphocyte countOrd ered By: Kelli Salgado on 12-10-2024 Lymphocytes Auto (Unsp spec) [#/Vol] 2.60 10*3/uL 0.83-4.[address] [facility] Anion gap in Serum or Plasma Ordered By: Kelli Salgado on 12-10-2024 Anion gap [Moles/Vol] 12 mmol/L 5- [facility] Automated lymphocyte count a s percentage of total leukocytesOrdered By: Kelli Salgado on 12-10-2024 Lymphocytes/100 WBC Auto (Unsp spec) 32.9 % - [facility] BUN/creatinine ratioOrdered By: Kelli Salgado on 12-10-2024 Urea nitrogen/Creatinine [Mass ratio] 33.2 mg/mg High 04-[address] [facility] Basic Metabolic Profile (BMP )on 12-10-2024 BUN/CRE 33.2 RATIO High 04-[address] [facility] Comment on above: Order Comment: 208 Performed By: #### L [id number], L500.2500, L100.0100 ####[facility] [address] [place], [address] Calcium [Mass/Vol] 9.3 mg/dL Normal 7.6-11.0 [facility] Comment on above: Order Comment: 208 Performed By: #### L [id number], L500.2500, L100.0100 ####[facility] [address] [place], [address] Chloride [Moles/Vol] 99 mmol/L Normal 98-108 [facility] Comment on above: Order Comment: 208 Performed By: #### L [id number], L500.2500, L100.0100 ####[facility] [address] [place], [address] CO2 [Moles/Vol] 28.2 mmol/L Normal 21.0-32.[address] [facility] Comment on above: Order Comment: 208 Performed By: #### L [id number], L500.2500, L100.0100 ####[facility] [address] [place], [address] Creatinine [Mass/Vol] 0.89 mg/dL Normal 0.70-1.20 [facility] Comment on above: Order Comment: 208 Performed By: #### L [id number], L500.2500, L100.0100 ####[facility] [address] [place], [address] GAP 12 Normal 5-[address] [facility] Comment on above: Order Comment: 208 Performed By: #### L [id number], L500.2500, L100.0100 ####[facility] [address] [place], [address] GFR/1.73 sq M.predicted among non-blacks MDRD (S/P/Bld) [Vol rate/Area] 92 mL/min/{1.73_m2} Normal >60 [facility] Comment on above: Order Comment: 208 Result Comment: mL/m in/1.73m2 CKD-EPI Creatinine Equation (2020) Performed By: #### L [id number], L500.2500, L100.0100 ####[facility] [address] [place], [address] Glucose [Mass/Vol] 147 mg/dL High 70-99 [facility] Comment on above: Order Comment: 208 Performed By: #### L [id number], L500.2500, L100.0100 ####[facility] [address] [place], [address] Potassium [Moles/Vol] 4.2 mmol/L Normal 3.3-5.1 [facility] Comment on above: Order Comment: 208 Performed By: #### L 501.6710, L500.2500, L100.0100 ####[facility] [address] [place], [address] Sodium [Moles/Vol] 140 mmol/L Normal 133-145 [facility] Comment on above: Order Comment: 208 Performed By: #### L 501.6710, L500.2500, L100.0100 ####[facility] [address] [place], [address] Urea nitrogen [Mass/Vol] 29 mg/dL High 4-[address] [facility] Comment on above: Order Comment: 208 Performed By: #### L 501.6710, L500.2500, L100.0100 ####[facility] [address] [place], [address] Basophil percentageOrdered B y: Kelli Salgado on 12-10-2024 Basophils/100 WBC (Bld) 0.5 % 0-1 [facility] CBC W/Diff, Automatedon 11-19 Absolute Lymph 2.60 X10 3/uL Normal 0.83-4.[address] [facility] Comment on above: Order Comment: 208 Performed By: #### L 501.6710, L500.2500, L100.0100 ####[facility] [address] [place], [address] Absolute Neut 4.6 X10 3/uL Normal 2.0-7.[address] [facility] Comment on above: Order Comment: 208 Performed By: #### L 501.6710, L500.2500, L100.0100 ####[facility] [address] [place], [address] Basophils/100 WBC (Bld) 0.5 % Normal 0-1 [facility] Comment on above: Order Comment: 208 Performed By: #### L 501.6710, L500.2500, L100.0100 ####[facility] [address] [place], [address] Eosinophils/100 WBC (Bld) 2.3 % Normal 0-[address] [facility] Comment on above: Order Comment: 208 Performed By: #### L 501.6710, L500.2500, L100.0100 ####[facility] [address] [place], [address] Erythrocyte distribution width (RBC) [Ratio] 15.3 % High 11.6-14.[address] [facility] Comment on above: Order Comment: 208 Performed By: #### L 501.6710, L500.2500, L100.0100 ####[facility] [address] [place], [address] Hematocrit (Bld) [Volume fraction] 33.8 % Low 40-[address] [facility] Comment on above: Order Comment: 208 Performed By: #### L 501.6710, L500.2500, L100.0100 ####[facility] [address] [place], [address] Hemoglobin (Bld) [Mass/Vol] 11.2 g/dL Low 13.0-16.[address] [facility] Comment on above: Order Comment: 208 Performed By: #### L 501.6710, L500.2500, L100.0100 ####[facility] [address] [place], [address] IG% 0.300 Normal 0.0-0.[address] [facility] Comment on above: Order Comment: 208 Result Comment: IG% - Immature Granulocytes (promyelocytes, myelocytes andmetamyelocytes) > 1% indicates that a LEFT SHIFT is Present. Performed By: #### L 501.6710, L500.2500, L100.0100 ####[facility] [address] [place], [address] Lymphocytes/100 WBC (Bld) 32.9 % Normal 19-[address] [facility] Comment on above: Order Comment: 208 Performed By: #### L 501.6710, L500.2500, L100.0100 ####[facility] [address] [place], [address] MCH (RBC) [Entitic mass] 27.1 pg Normal 27.0-32.[address] [facility] Comment on above: Order Comment: 208 Performed By: #### L 501.6710, L500.2500, L100.0100 ####[facility] [address] [place], [address] MCHC (RBC) [Mass/Vol] 33.1 g/dL Normal 32-36 [facility] Comment on above: Order Comment: 208 Performed By: #### L 501.6710, L500.2500, L100.0100 ####[facility] [address] [place], [address] MCV (RBC) [Entitic vol] 81.6 fL Normal 80-94 [facility] Comment on above: Order Comment: 208 Performed By: #### L 501.6710, L500.2500, L100.0100 ####[facility] [address] [place], [address] Monocytes/100 WBC (Bld) 6.1 % Normal 0-10 [facility] Comment on above: Order Comment: 208 Performed By: #### L 501.6710, L500.2500, L100.0100 ####[facility] [address] [place], [address] Neutrophils/100 WBC (Bld) 57.9 % Normal 47-[address] [facility] Comment on above: Order Comment: 208 Performed By: #### L 501.6710, L500.2500, L100.0100 ####[facility] [address] [place], [address] Nucleated RBC (Bld) [#/Vol] 0 10*3/uL Normal 0-[address] [facility] Comment on above: Order Comment: 208 Performed By: #### L 501.6710, L500.2500, L100.0100 ####[facility] [address] [place], [address] Platelet mean volume (Bld) [Entitic vol] 11.4 fL Normal 6.2-12.[address] [facility] Comment on above: Order Comment: 208 Performed By: #### L 501.6710, L500.2500, L100.0100 ####[facility] [address] [place], [address] Platelets (Bld) [#/Vol] 199 10*3/uL Normal 150-[address] [facility] Comment on above: Order Comment: 208 Performed By: #### L 501.6710, L500.2500, L100.0100 ####[facility] [address] [place], [address] RBC (Bld) [#/Vol] 4.14 10*6/uL Low 4.6-6.2 [facility] Comment on above: Order Comment: 208 Performed By: #### L 501.6710, L500.2500, L100.0100 ####[facility] [address] [place], [address] RDW SD 44.7 fl High 35.1-43.[address] [facility] Comment on above: Order Comment: 208 Performed By: #### L 501.6710, L500.2500, L100.0100 ####[facility] [address] [place], [address] WBC (Bld) [#/Vol] 7.9 10*3/uL Normal 4.4-11.0 [facility] Comment on above: Order Comment: 208 Performed By: #### L 501.6710, L500.2500, L100.0100 ####[facility] [address] [place], [address] CRPon 12-10-2024 C-REACTIVE PROT 19.40 mg/L High 0.0-3.[address] [facility] Comment on above: Order Comment: 208 Performed By: #### L 501.6710, L500.2500, L100.0100 ####[facility] [address] [place], [address] Carbon dioxide, total [Moles /volume] in Central venous bloodOrdered By: Kelli Salgado on 12-10-2024 CO2 [Moles/Vol] 28.2 mmol/L 21.0-32.[address] [facility] Chloride assayOrdered By: Chris Salgado on 12-10-2024 Chloride [Moles/Vol] 99 mmol/L 98-108 [facility] Eosinophil percentageOrdered By: Kelli Salgado on 12-10-2024 Eosinophils/100 WBC (Bld) 2.3 % 0-[address] [facility] Erythrocyte distribution wid th ratioOrdered By: Kelli Salgado on 12-10-2024 Erythrocyte distribution width (RBC) [Ratio] 15.3 % High 11.6-14.[address] [facility] Erythrocyte distribution wid th standard deviationOrdered By: Kelli Salgado on 12-10-2024 Erythrocyte distribution width (RBC) [Ratio] 44.7 fl High 35.1-43.[address] [facility] Glomerular filtration rate ( GFR) estimation/1.73 sq m using serum, plasma, or whole bOrdered By: Kelli Salgado on 12-10-2024 GFR/1.73 sq M.predicted among non-blacks MDRD (S/P/Bld) [Vol rate/Area] 92 mL/min/{1.73_m2} >60 [facility] Hematocrit Auto (Bld) [Volum e fraction]Ordered By: Kelli Salgado on 12-10-2024 Hematocrit (Bld) [Volume fraction] 33.8 % Low 40-[address] [facility] Hemoglobin measurementOrdere d By: Kelli Salgado on 12-10-2024 Hemoglobin (Bld) [Mass/Vol] 11.2 g/dL Low 13.0-16.[address] [facility] Immature granulocytes/100 WB C Auto (Bld)Ordered By: Kelli Salgado on 12-10-2024 Immature granulocytes/100 WBC (Bld) 0.300 % 0.0-0.[address] [facility] MCV (mean corpuscular volume ) determinationOrdered By: Kelli Salgado on 12-10-2024 MCV (RBC) [Entitic vol] 81.6 fL 80-94 [facility] Mean corpuscular hemoglobin (MCH) determinationOrdered By: Kelli Salgado on 12-10-2024 MCH (RBC) [Entitic mass] 27.1 pg 27.0-32.[address] [facility] Monocyte percentageOrdered B y: Kelli Salgado on 12-10-2024 Monocytes/100 WBC (Bld) 6.1 % 0-10 [facility] Neutrophil percentageOrdered By: Kelli Salgado on 12-10-2024 Neutrophils/100 WBC (Bld) 57.9 % 47-[address] [facility] Platelet countOrdered By: Chris Salgado on 12-10-2024 Platelets (Bld) [#/Vol] 199 10*3/uL 150-[address] [facility] Potassium measurement (mass/ volume)Ordered By: Kelli Salgado on 12-10-2024 Potassium (Unsp spec) [Mass/Vol] 4.2 mmol/L 3.3-5.[address] [facility] RBC Auto (Bld) [#/Vol]Ordere d By: Kelli Salgado on 12-10-2024 RBC (Bld) [#/Vol] 4.14 10*6/uL Low 4.6-6.2 [facility] Serum creatinine measurement (mass/volume)Ordered By: Kelli Salgado on 12-10-2024 Creatinine [Mass/Vol] 0.89 mg/dL 0.70-1.20 [facility] Serum glucose measurement (m ass/volume)Ordered By: Kelli Salgado on 12-10-2024 Glucose [Mass/Vol] 147 mg/dL High 70-99 [facility] Serum or plasma C reactive p rotein measurement (mass/volume)Ordered By: Kelli Salgado on 12-10-2024 CRP [Mass/Vol] 19.40 mg/L High 0.0-3.[address] [facility] Serum or plasma calcium everardo urement (mass/volume)Ordered By: Kelli Salgado on 12-10-2024 Calcium [Mass/Vol] 9.3 mg/dL 7.6-11.0 [facility] Serum or plasma urea nitroge n measurement (mass/volume)Ordered By: Kelli Salgado on 12-10-2024 Urea nitrogen [Mass/Vol] 29 mg/dL High 4-[address] [facility] Sodium levelOrdered By: Nilay Salgado on 12-10-2024 Sodium [Moles/Vol] 140 mmol/L 133-145 [facility] White blood cell (WBC) count Ordered By: Kelli Salgado on 12-10-2024 WBC (Bld) [#/Vol] 7.9 10*3/uL 4.4-11.0 [facility] Brain/Head without Contrasto n 11-29-2024 Brain/Head without Contrast Normal [facility] Absolute lymphocyte countOrd ered By: Kelli Salgado on 11-21-2024 Lymphocytes Auto (Unsp spec) [#/Vol] 2.30 10*3/uL 0.83-4.[address] [facility] Absolute neutrophil countOrd ered By: Kelli Salgado on 11-21-2024 Neutrophils (Bld) [#/Vol] 4.4 10*3/uL 2.0-7.[address] [facility] Anion gap in Serum or Plasma Ordered By: Kelli Salgado on 11-21-2024 Anion gap [Moles/Vol] 11 mmol/L 5-15 [facility] Automated lymphocyte count a s percentage of total leukocytesOrdered By: Kelli Salgado on 11-21-2024 Lymphocytes/100 WBC Auto (Unsp spec) 30.3 % 19-[address] [facility] BUN/creatinine ratioOrdered By: Kelli Salgado on 11-21-2024 Urea nitrogen/Creatinine [Mass ratio] 36.6 mg/mg High 10-[address] [facility] Basophil percentageOrdered B y: Kelli Salgado on 11-21-2024 Basophils/100 WBC (Bld) 0.7 % 0-1 [facility] Bilirubin, totalOrdered By: Kelli Salgado on 11-21-2024 Bilirubin [Mass/Vol] 0.46 mg/dL 0.00-1.30 [facility] CBC W/Diff, Automatedon Absolute Lymph 2.30 X10 3/uL Normal 0.83-4.[address] [facility] Comment on above: Performed By: #### L 101.9900, L100.0100, L500.4050, L501.8820 ####[facility] [address] [place], [address] Absolute Neut 4.4 X10 3/uL Normal 2.0-7.[address] [facility] Comment on above: Performed By: #### L 101.9900, L100.0100, L500.4050, L501.8820 ####[facility] [address] [place], [address] Basophils/100 WBC (Bld) 0.7 % Normal 0-1 [facility] Comment on above: Performed By: #### L 101.9900, L100.0100, L500.4050, L501.8820 ####[facility] [address] [place], [address] Eosinophils/100 WBC (Bld) 2.8 % Normal 0-[address] [facility] Comment on above: Performed By: #### L 101.9900, L100.0100, L500.4050, L501.8820 ####[facility] [address] [place], [address] Erythrocyte distribution width (RBC) [Ratio] 14.6 % Normal 11.6-14.[address] [facility] Comment on above: Performed By: #### L 101.9900, L100.0100, L500.4050, L501.8820 ####[facility] [address] [place], [address] Hematocrit (Bld) [Volume fraction] 38.4 % Low 40-[address] [facility] Comment on above: Performed By: #### L 101.9900, L100.0100, L500.4050, L501.8820 ####[facility] [address] [place], [address] Hemoglobin (Bld) [Mass/Vol] 12.6 g/dL Low 13.0-16.[address] [facility] Comment on above: Performed By: #### L 101.9900, L100.0100, L500.4050, L501.8820 ####[facility] [address] [place], [address] IG% 0.400 Normal 0.0-0.[address] [facility] Comment on above: Result Comment: IG% - Immature Granulocytes (promyelocytes, myelocytes andmetamyelocytes) > 1% indicates that a LEFT SHIFT is Present. Performed By: #### L 101.9900, L100.0100, L500.4050, L501.8820 ####[facility] [address] [place], [address] Lymphocytes/100 WBC (Bld) 30.3 % Normal 19-[address] [facility] Comment on above: Performed By: #### L 101.9900, L100.0100, L500.4050, L501.8820 ####[facility] [address] [place], [address] MCH (RBC) [Entitic mass] 26.5 pg Low 27.0-32.[address] [facility] Comment on above: Performed By: #### L 101.9900, L100.0100, L500.4050, L501.8820 ####[facility] [address] [place], [address] MCHC (RBC) [Mass/Vol] 32.8 g/dL Normal 32-36 [facility] Comment on above: Performed By: #### L 101.9900, L100.0100, L500.4050, L501.8820 ####[facility] [address] [place], [address] MCV (RBC) [Entitic vol] 80.8 fL Normal 80-94 [facility] Comment on above: Performed By: #### L 101.9900, L100.0100, L500.4050, L501.8820 ####[facility] [address] [place], [address] Monocytes/100 WBC (Bld) 7.4 % Normal 0-10 [facility] Comment on above: Performed By: #### L 101.9900, L100.0100, L500.4050, L501.8820 ####[facility] [address] [place], [address] Neutrophils/100 WBC (Bld) 58.4 % Normal 47-[address] [facility] Comment on above: Performed By: #### L 101.9900, L100.0100, L500.4050, [id number] ####[facility] [address] [place], [address] Nucleated RBC (Bld) [#/Vol] 0 10*3/uL Normal 0-[address] [facility] Comment on above: Performed By: #### L 101.9900, L100.0100, L500.4050, [id number] ####[facility] [address] [place], [address] Platelet mean volume (Bld) [Entitic vol] 11.1 fL Normal 6.2-12.[address] [facility] Comment on above: Performed By: #### L 101.9900, L100.0100, L500.4050, L501.8820 ####[facility] [address] [place], [address] Platelets (Bld) [#/Vol] 174 10*3/uL Normal 150-[address] [facility] Comment on above: Performed By: #### L 101.9900, L100.0100, L500.4050, [id number] ####[facility] [address] [place], [address] RBC (Bld) [#/Vol] 4.75 10*6/uL Normal 4.6-6.2 [facility] Comment on above: Performed By: #### L 101.9900, L100.0100, L500.4050, [id number] ####[facility] [address] [place], [address] RDW SD 42.1 fl Normal 35.1-43.[address] [facility] Comment on above: Performed By: #### L 101.9900, L100.0100, L500.4050, [id number] ####[facility] [address] [place], [address] WBC (Bld) [#/Vol] 7.6 10*3/uL Normal 4.4-11.0 [facility] Comment on above: Performed By: #### L 101.9900, L100.0100, L500.4050, [id number] ####[facility] [address] [place], [address] Carbon dioxide, total [Moles /volume] in Central venous bloodOrdered By: Kelli Salgado on 11-21-2024 CO2 [Moles/Vol] 29.3 mmol/L 21.0-32.[address] [facility] Chloride assayOrdered By: Chris Salgado on 11-21-2024 Chloride [Moles/Vol] 100 mmol/L 98-108 [facility] Comprehensive Metabolic Prof ilon 11-21-2024 GAP 11 Normal 5-[address] [facility] Comment on above: Performed By: #### L 101.9900, L100.0100, L500.4050, [id number] ####[facility] [address] [place], [address] Albumin [Mass/Vol] 3.4 g/dL Normal 3.4-4.8 [facility] Comment on above: Performed By: #### L 101.9900, L100.0100, L500.4050, [id number] ####[facility] [address] [place], [address] Albumin/Globulin [Mass ratio] 1.0 {ratio} Normal 0.9-2.[address] [facility] Comment on above: Performed By: #### L 101.9900, L100.0100, L500.4050, [id number] ####[facility] [address] [place], [address] ALK PHOS 120 U/L Normal 40-[address] [facility] Comment on above: Performed By: #### L 101.9900, L100.0100, L500.4050, [id number] ####[facility] [address] [place], [address] ALT [Catalytic activity/Vol] 16 U/L Normal <=[address] [facility] Comment on above: Performed By: #### L 101.9900, L100.0100, L500.4050, [id number] ####[facility] [address] [place], [address] AST [Catalytic activity/Vol] 24 U/L Normal <=[address] [facility] Comment on above: Performed By: #### L 101.9900, L100.0100, L500.4050, [id number] ####[facility] [address] [place], [address] Bilirubin [Mass/Vol] 0.46 mg/dL Normal 0.00-1.30 [facility] Comment on above: Performed By: #### L 101.9900, L100.0100, L500.4050, [id number] ####[facility] [address] [place], [address] BUN/CRE 36.6 RATIO High 10-[address] [facility] Comment on above: Performed By: #### L 101.9900, L100.0100, L500.4050, [id number] ####[facility] [address] [place], [address] Calcium [Mass/Vol] 9.5 mg/dL Normal 7.6-11.0 [facility] Comment on above: Performed By: #### L 101.9900, L100.0100, L500.4050, [id number] ####[facility] [address] [place], [address] Chloride [Moles/Vol] 100 mmol/L Normal 98-108 [facility] Comment on above: Performed By: #### L 101.9900, L100.0100, L500.4050, [id number] ####[facility] [address] [place], [address] CO2 [Moles/Vol] 29.3 mmol/L Normal 21.0-32.[address] [facility] Comment on above: Performed By: #### L 101.9900, L100.0100, L500.4050, [id number] ####[facility] [address] [place], [address] Creatinine [Mass/Vol] 0.71 mg/dL Normal 0.70-1.20 [facility] Comment on above: Performed By: #### L 101.9900, L100.0100, L500.4050, [id number] ####[facility] [address] [place], [address] GFR/1.73 sq M.predicted among non-blacks MDRD (S/P/Bld) [Vol rate/Area] 99 mL/min/{1.73_m2} Normal >60 [facility] Comment on above: Result Comment: mL/m in/1.73m2 CKD-EPI Creatinine Equation (2020) Performed By: #### L 101.9900, L100.0100, L500.4050, [id number] ####[facility] [address] [place], [address] Globulin (S) [Mass/Vol] 3.5 g/dL Normal 2.2-4.2 [facility] Comment on above: Performed By: #### L 101.9900, L100.0100, L500.4050, [id number] ####[facility] [address] [place], [address] Glucose [Mass/Vol] 141 mg/dL High 70-99 [facility] Comment on above: Performed By: #### L 101.9900, L100.0100, L500.4050, [id number] ####[facility] [address] [place], [address] Potassium [Moles/Vol] 4.1 mmol/L Normal 3.3-5.1 [facility] Comment on above: Performed By: #### L 101.9900, L100.0100, L500.4050, [id number] ####[facility] [address] [place], [address] Sodium [Moles/Vol] 139 mmol/L Normal 133-145 [facility] Comment on above: Performed By: #### L 101.9900, L100.0100, L500.4050, [id number] ####[facility] [address] [place], [address] T PROT 6.8 g/dL Normal 5.9-8.[address] [facility] Comment on above: Performed By: #### L 101.9900, L100.0100, L500.4050, [id number] ####[facility] [address] [place], [address] Urea nitrogen [Mass/Vol] 26 mg/dL High 4-[address] [facility] Comment on above: Performed By: #### L 101.9900, L100.0100, L500.4050, [id number] ####[facility] [address] [place], [place], [address] Eosinophil percentageOrdered By: Kelli Salgado on 11-21-2024 Eosinophils/100 WBC (Bld) 2.8 % 0-[address] [facility] Erythrocyte Sed Rateon 11-21 SED RATE 27 mm/hr High 0-[address] [facility] Comment on above: Performed By: #### L 101.9900, L100.0100, L500.4050, [id number] ####[facility] [address] [place], [place], [address] Erythrocyte distribution wid th ratioOrdered By: Kelli Salgado on 11-21-2024 Erythrocyte distribution width (RBC) [Ratio] 14.6 % 11.6-14.[address] [facility] Erythrocyte distribution wid th standard deviationOrdered By: Kelli Salgado on 11-21-2024 Erythrocyte distribution width (RBC) [Ratio] 42.1 fl 35.1-43.[address] [facility] Erythrocyte sedimentation ra teOrdered By: Kelli Salgado on 11-21-2024 ESR (Bld) [Velocity] 27 mm/h High 0- [facility] Glomerular filtration rate ( GFR) estimation/1.73 sq m using serum, plasma, or whole bOrdered By: Kelli Salgado on 11-21-2024 GFR/1.73 sq M.predicted among non-blacks MDRD (S/P/Bld) [Vol rate/Area] 99 mL/min/{1.73_m2} >60 [facility] Comment on above: mL/min/1.73m2 CKD-EP I Creatinine Equation (2020) Hematocrit Auto (Bld) [Volum e fraction]Ordered By: Kelli Salgado on 11-21-2024 Hematocrit (Bld) [Volume fraction] 38.4 % Low 40-[address] [facility] Hemoglobin measurementOrdere d By: Kelli Salgado on 11-21-2024 Hemoglobin (Bld) [Mass/Vol] 12.6 g/dL Low 13.0-16.[address] [facility] Immature granulocytes/100 WB C Auto (Bld)Ordered By: Kelli Salgado on 11-21-2024 Immature granulocytes/100 WBC (Bld) 0.400 % 0.0-0.[address] [facility] Comment on above: IG% - Immature Granu locytes (promyelocytes, myelocytes and metamyelocytes) > 1% indicates that a LEFT SHIFT is Present. Laboratory - Chemistry and C hemistry - challengeOrdered By: Kelli Salgado on 11-21-2024 AST [Catalytic activity/Vol] 24 U/L <[address] [facility] MCV (mean corpuscular volume ) determinationOrdered By: Kelli Salgado on 11-21-2024 MCV (RBC) [Entitic vol] 80.8 fL 80-94 [facility] Mean corpuscular hemoglobin (MCH) determinationOrdered By: Kelli Salgado on 11-21-2024 MCH (RBC) [Entitic mass] 26.5 pg Low 27.0-32.[address] [facility] Mean corpuscular hemoglobin concentration (MCHC) determinationOrdered By: Kelli Salgado on 11-21-2024 MCHC (RBC) [Mass/Vol] 32.8 g/dL 32-36 [facility] Mean platelet volume determi nationOrdered By: Kelli Salgado on 11-21-2024 Platelet mean volume (Bld) [Entitic vol] 11.1 fL 6.2-12.[address] [facility] Monocyte percentageOrdered B y: Kelli Salgado on 11-21-2024 Monocytes/100 WBC (Bld) 7.4 % 0-10 [facility] Neutrophil percentageOrdered By: Kelli Salgado on 11-21-2024 Neutrophils/100 WBC (Bld) 58.4 % 47-[address] [facility] No Panel InformationOrdered By: Kelli Salgado on 11-21-2024 24 U/L <[address] [facility] Nucleated red blood cell per centageOrdered By: Kelli Salgado on 11-21-2024 Nucleated RBC/100 WBC (Bld) [Ratio] 0 % 0-[address] [facility] Platelet countOrdered By: Chris Salgado on 11-21-2024 Platelets (Bld) [#/Vol] 174 10*3/uL 150-[address] [facility] Potassium measurement (mass/ volume)Ordered By: Kelli Salgado on 11-21-2024 Potassium (Unsp spec) [Mass/Vol] 4.1 mmol/L 3.3-5.[address] [facility] RBC Auto (Bld) [#/Vol]Ordere d By: Kelli Salgado on 11-21-2024 RBC (Bld) [#/Vol] 4.75 10*6/uL 4.6-6.2 [facility] Serum creatinine measurement (mass/volume)Ordered By: Kelli Salgado on 11-21-2024 Creatinine [Mass/Vol] 0.71 mg/dL 0.70-1.20 [facility] Serum globulin measurementOr dered By: Kelli Salgado on 11-21-2024 Globulin (S) [Mass/Vol] 3.5 g/dL 2.2-4.2 [facility] Serum glucose measurement (m ass/volume)Ordered By: Kelli Salgado on 11-21-2024 Glucose [Mass/Vol] 141 mg/dL High 70-99 [facility] Serum or plasma alanine herrmann otransferase (ALT) measurementOrdered By: Kelli Salgado on 11-21-2024 ALT [Catalytic activity/Vol] 16 U/L <[address] [facility] Serum or plasma albumin everardo urement (mass/volume)Ordered By: Kelli Salgado on 11-21-2024 Albumin [Mass/Vol] 3.4 g/dL 3.4-4.8 [facility] Serum or plasma albumin/glob ulin mass ratioOrdered By: Kelli Salgado on 11-21-2024 Albumin/Globulin [Mass ratio] 1.0 {ratio} 0.9-2.[address] [facility] Serum or plasma alkaline kaiser sphatase measurementOrdered By: Kelli Salgado on 11-21-2024 ALP [Catalytic activity/Vol] 120 U/L 40-[address] [facility] Serum or plasma calcium everardo urement (mass/volume)Ordered By: Kelli Salgado on 11-21-2024 Calcium [Mass/Vol] 9.5 mg/dL 7.6-11.0 [facility] Serum or plasma urea nitroge n measurement (mass/volume)Ordered By: Kelli Salgado on 11-21-2024 Urea nitrogen [Mass/Vol] 26 mg/dL High 4-[address] [facility] Sodium levelOrdered By: Nilay Salgado on 11-21-2024 Sodium [Moles/Vol] 139 mmol/L 133-145 [facility] Total proteinOrdered By: Tawanda Salgado on 11-21-2024 Protein [Mass/Vol] 6.8 g/dL 5.9-8.4 [facility] Trough vancomycin levelOrder ed By: Kelli Salgado on 11-21-2024 Vancomycin trough [Mass/Vol] 17.7 ug/mL High 5.0-15.[address] [facility] Comment on above: Recommended goal tro ugh ranges are generally 10-15 mcg/ml for less severe/complicated infections such as cellulitis or UTI and 15-20 mcg/ml for more severe/complicated infections such as bacteremia/sepsis, osteomyelitis, pneumonia or meningitis. Goal trough ranges should take into account indication, patient-specific factors and organism REUBEN.VANCOMYCIN STANDARED DRUG THERAPY TROUGH LEVEL: 5.0 - 15.0 mg/L VANCOMYCIN HIGH INTENSITY THERAPY TROUGH LEVEL: 15.0 - 20.0 mg/L High Intensity therapy recommended for serious lifethreatening infections include:- Ricccwzulp-Nutozlyemnas-Otbkfmdiv (Ventilator/Healtcare Associated)-Sepsis PLEASE CONTACT PHARMACY SERVICES (#[id number]) FOR INTERPRETATIONOF RESULTS. Vancomycin, Trough Levelon 0 11-21-2024 VANCO, TROUGH 17.7 ug/mL High 5.0-15.[address] [facility] Comment on above: Order Comment: 0000 Result Comment: [place] mmended goal trough ranges are generally 10-15 mcg/mlfor less severe/complicated infections such as cellulitisor UTI and 15-20 mcg/ml for more severe/complicatedinfections such as bacteremia/sepsis, osteomyelitis,pneumonia or meningitis. Goal trough ranges should takeinto account indication, patient-specific factors andorganism REUBEN.VANCOMYCIN STANDARED DRUG THERAPY TROUGH LEVEL: 5.0 - 15.0 mg/LVANCOMYCIN HIGH INTENSITY THERAPY TROUGH LEVEL: 15.0 - 20.0 mg/LHigh Intensity therapy recommended for serious lifethreatening infections include:- Jibtlpdwmr-Pnssoejpryoh-Cxgqvbgxz (Ventilator/Healtcare Associated)-SepsisPLEASE CONTACT PHARMACY SERVICES (#[id number]) FOR INTERPRETATIONOF RESULTS. Performed By: #### L 101.9900, L100.0100, L500.4050, L501.8820 ####[facility] [address] [place], [address] White blood cell (WBC) count Ordered By: Kelli Salgado on 11-21-2024 WBC (Bld) [#/Vol] 7.6 10*3/uL 4.4-11.0 [facility] Absolute lymphocyte countOrd ered By: Kelli Salgado on 11-14-2024 Lymphocytes Auto (Unsp spec) [#/Vol] 2.69 10*3/uL 0.83-4.[address] [facility] Absolute neutrophil countOrd ered By: Kelli Salgado on 11-14-2024 Neutrophils (Bld) [#/Vol] 3.1 10*3/uL 2.0-7.[address] [facility] Anion gap in Serum or Plasma Ordered By: Kelli Salgado on 11-14-2024 Anion gap [Moles/Vol] 12 mmol/L 11-01 [facility] Automated lymphocyte count a s percentage of total leukocytesOrdered By: Kelli Salgado on 11-14-2024 Lymphocytes/100 WBC Auto (Unsp spec) 40.0 % [facility] BUN/creatinine ratioOrdered By: Kelli Salgado on 11-14-2024 Urea nitrogen/Creatinine [Mass ratio] 46.0 mg/mg High 04-[address] [facility] Basophil percentageOrdered B y: Kelli Salgado on 11-14-2024 Basophils/100 WBC (Bld) 0.7 % 0-1 [facility] Bilirubin, totalOrdered By: Kelli Salgado on 11-14-2024 Bilirubin [Mass/Vol] 0.42 mg/dL 0.00-1.30 [facility] CBC W/Diff, Automatedon 05-2 Absolute Lymph 2.69 X10 3/uL Normal 0.83-4.[address] [facility] Comment on above: Order Comment: 208 Performed By: #### L 501.6710, L100.0100, L101.9900, L500.4050, [id number] ####[facility] [address] [place], [address] Absolute Neut 3.1 X10 3/uL Normal 2.0-7.[address] [facility] Comment on above: Order Comment: 208 Performed By: #### L 501.6710, L100.0100, L101.9900, L500.4050, [id number] ####[facility] [address] [place], [address] Basophils/100 WBC (Bld) 0.7 % Normal 0-1 [facility] Comment on above: Order Comment: 208 Performed By: #### L 501.6710, L100.0100, L101.9900, L500.4050, [id number] ####[facility] [address] [place], [address] Eosinophils/100 WBC (Bld) 4.2 % Normal 0-[address] [facility] Comment on above: Order Comment: 208 Performed By: #### L 501.6710, L100.0100, L101.9900, L500.4050, [id number] ####[facility] [address] [place], [address] Erythrocyte distribution width (RBC) [Ratio] 14.4 % Normal 11.6-14.[address] [facility] Comment on above: Order Comment: 208 Performed By: #### L 501.6710, L100.0100, L101.9900, L500.4050, [id number] ####[facility] [address] [place], [address] Hematocrit (Bld) [Volume fraction] 36.6 % Low 40-[address] [facility] Comment on above: Order Comment: 208 Performed By: #### L 501.6710, L100.0100, L101.9900, L500.4050, [id number] ####[facility] [address] [place], [address] Hemoglobin (Bld) [Mass/Vol] 11.9 g/dL Low 13.0-16.[address] [facility] Comment on above: Order Comment: 208 Performed By: #### L 501.6710, L100.0100, L101.9900, L500.4050, [id number] ####[facility] [address] [place], [address] IG% 0.100 Normal 0.0-0.[address] [facility] Comment on above: Order Comment: 208 Result Comment: IG% - Immature Granulocytes (promyelocytes, myelocytes andmetamyelocytes) > 1% indicates that a LEFT SHIFT is Present. Performed By: #### L 501.6710, L100.0100, L101.9900, L500.4050, L501.8820 ####[facility] [address] [place], [address] Lymphocytes/100 WBC (Bld) 40.0 % Normal 19-[address] [facility] Comment on above: Order Comment: 208 Performed By: #### L 501.6710, L100.0100, L101.9900, L500.4050, [id number] ####[facility] [address] [place], [address] MCH (RBC) [Entitic mass] 26.6 pg Low 27.0-32.[address] [facility] Comment on above: Order Comment: 208 Performed By: #### L 501.6710, L100.0100, L101.9900, L500.4050, [id number] ####[facility] [address] [place], [address] MCHC (RBC) [Mass/Vol] 32.5 g/dL Normal 32-36 [facility] Comment on above: Order Comment: 208 Performed By: #### L 501.6710, L100.0100, L101.9900, L500.4050, [id number] ####[facility] [address] [place], [address] MCV (RBC) [Entitic vol] 81.9 fL Normal 80-94 [facility] Comment on above: Order Comment: 208 Performed By: #### L 501.6710, L100.0100, L101.9900, L500.4050, [id number] ####[facility] [address] [place], [address] Monocytes/100 WBC (Bld) 8.5 % Normal 0-10 [facility] Comment on above: Order Comment: 208 Performed By: #### L 501.6710, L100.0100, L101.9900, L500.4050, [id number] ####[facility] [address] [place], [address] Neutrophils/100 WBC (Bld) 46.5 % Low 47-[address] [facility] Comment on above: Order Comment: 208 Performed By: #### L 501.6710, L100.0100, L101.9900, L500.4050, [id number] ####[facility] [address] [place], [address] Nucleated RBC (Bld) [#/Vol] 0 10*3/uL Normal 0-[address] [facility] Comment on above: Order Comment: 208 Performed By: #### L 501.6710, L100.0100, L101.9900, L500.4050, [id number] ####[facility] [address] [place], [address] Platelet mean volume (Bld) [Entitic vol] 11.3 fL Normal 6.2-12.[address] [facility] Comment on above: Order Comment: 208 Performed By: #### L 501.6710, L100.0100, L101.9900, L500.4050, [id number] ####[facility] [address] [place], [address] Platelets (Bld) [#/Vol] 199 10*3/uL Normal 150-[address] [facility] Comment on above: Order Comment: 208 Performed By: #### L 501.6710, L100.0100, L101.9900, L500.4050, [id number] ####[facility] [address] [place], [address] RBC (Bld) [#/Vol] 4.47 10*6/uL Low 4.6-6.2 [facility] Comment on above: Order Comment: 208 Performed By: #### L 501.6710, L100.0100, L101.9900, L500.4050, [id number] ####[facility] [address] [place], [address] RDW SD 41.3 fl Normal 35.1-43.[address] [facility] Comment on above: Order Comment: 208 Performed By: #### L 501.6710, L100.0100, L101.9900, L500.4050, [id number] ####[facility] [address] [place], [address] WBC (Bld) [#/Vol] 6.7 10*3/uL Normal 4.4-11.0 [facility] Comment on above: Order Comment: 208 Performed By: #### L 501.6710, L100.0100, L101.9900, L500.4050, [id number] ####[facility] [address] [place], [address] CRPon 11-14-2024 C-REACTIVE PROT 12.40 mg/L High 0.0-3.[address] [facility] Comment on above: Order Comment: 208 Performed By: #### L 501.6710, L100.0100, L101.9900, L500.4050, [id number] ####[facility] [address] [place], [address] Carbon dioxide, total [Moles /volume] in Central venous bloodOrdered By: Kelli Salgado on 11-14-2024 CO2 [Moles/Vol] 26.9 mmol/L 21.0-32.[address] [facility] Chloride assayOrdered By: Chris Salgado on 11-14-2024 Chloride [Moles/Vol] 103 mmol/L 98-108 [facility] Comprehensive Metabolic Prof ilon 11-14-2024 Albumin [Mass/Vol] 3.4 g/dL Normal 3.4-4.8 [facility] Comment on above: Order Comment: 208 Performed By: #### L 501.6710, L100.0100, L101.9900, L500.4050, [id number] ####[facility] [address] [place], [address] Albumin/Globulin [Mass ratio] 1.0 {ratio} Normal 0.9-2.[address] [facility] Comment on above: Order Comment: 208 Performed By: #### L 501.6710, L100.0100, L101.9900, L500.4050, [id number] ####[facility] [address] [place], [address] ALK PHOS 110 U/L Normal 40-[address] [facility] Comment on above: Order Comment: 208 Performed By: #### L 501.6710, L100.0100, L101.9900, L500.4050, [id number] ####[facility] [address] [place], [address] ALT [Catalytic activity/Vol] 18 U/L Normal <=[address] [facility] Comment on above: Order Comment: 208 Performed By: #### L 501.6710, L100.0100, L101.9900, L500.4050, [id number] ####[facility] [address] [place], [address] AST [Catalytic activity/Vol] 23 U/L Normal <=[address] [facility] Comment on above: Order Comment: 208 Performed By: #### L 501.6710, L100.0100, L101.9900, L500.4050, [id number] ####[facility] [address] [place], [address] Bilirubin [Mass/Vol] 0.42 mg/dL Normal 0.00-1.30 [facility] Comment on above: Order Comment: 208 Performed By: #### L 501.6710, L100.0100, L101.9900, L500.4050, [id number] ####[facility] [address] [place], [address] BUN/CRE 46.0 RATIO High 10-[address] [facility] Comment on above: Order Comment: 208 Performed By: #### L 501.6710, L100.0100, L101.9900, L500.4050, [id number] ####[facility] [address] [place], [address] Calcium [Mass/Vol] 9.6 mg/dL Normal 7.6-11.0 [facility] Comment on above: Order Comment: 208 Performed By: #### L 501.6710, L100.0100, L101.9900, L500.4050, [id number] ####[facility] [address] [place], [address] Chloride [Moles/Vol] 103 mmol/L Normal 98-108 [facility] Comment on above: Order Comment: 208 Performed By: #### L 501.6710, L100.0100, L101.9900, L500.4050, [id number] ####[facility] [address] [place], [address] CO2 [Moles/Vol] 26.9 mmol/L Normal 21.0-32.[address] [facility] Comment on above: Order Comment: 208 Performed By: #### L 501.6710, L100.0100, L101.9900, L500.4050, [id number] ####[facility] [address] [place], [address] Creatinine [Mass/Vol] 0.67 mg/dL Low 0.70-1.20 [facility] Comment on above: Order Comment: 208 Performed By: #### L 501.6710, L100.0100, L101.9900, L500.4050, [id number] ####[facility] [address] [place], [address] GAP 12 Normal 5-[address] [facility] Comment on above: Order Comment: 208 Performed By: #### L 501.6710, L100.0100, L101.9900, L500.4050, [id number] ####[facility] [address] [place], [address] GFR/1.73 sq M.predicted among non-blacks MDRD (S/P/Bld) [Vol rate/Area] 101 mL/min/{1.73_m2} Normal >60 [facility] Comment on above: Order Comment: 208 Result Comment: mL/m in/1.73m2 CKD-EPI Creatinine Equation (2020) Performed By: #### L 501.6710, L100.0100, L101.9900, L500.4050, L501.8820 ####[facility] [address] [place], [address] Globulin (S) [Mass/Vol] 3.3 g/dL Normal 2.2-4.2 [facility] Comment on above: Order Comment: 208 Performed By: #### L 501.6710, L100.0100, L101.9900, L500.4050, [id number] ####[facility] [address] [place], [address] Glucose [Mass/Vol] 124 mg/dL High 70-99 [facility] Comment on above: Order Comment: 208 Performed By: #### L 501.6710, L100.0100, L101.9900, L500.4050, [id number] ####[facility] [address] [place], [address] Potassium [Moles/Vol] 4.1 mmol/L Normal 3.3-5.1 [facility] Comment on above: Order Comment: 208 Performed By: #### L 501.6710, L100.0100, L101.9900, L500.4050, [id number] ####[facility] [address] [place], [address] Sodium [Moles/Vol] 141 mmol/L Normal 133-145 [facility] Comment on above: Order Comment: 208 Performed By: #### L 501.6710, L100.0100, L101.9900, L500.4050, L501.8820 ####[facility] [address] [place], [address] T PROT 6.7 g/dL Normal 5.9-8.[address] [facility] Comment on above: Order Comment: 208 Performed By: #### L 501.6710, L100.0100, L101.9900, L500.4050, [id number] ####[facility] [address] [place], [address] Urea nitrogen [Mass/Vol] 31 mg/dL High 10-[address] [facility] Comment on above: Order Comment: 208 Performed By: #### L 501.6710, L100.0100, L101.9900, L500.4050, [id number] ####[facility] [address] [place], [address] Eosinophil percentageOrdered By: Kelli Salgado on 11-14-2024 Eosinophils/100 WBC (Bld) 4.2 % 0-[address] [facility] Erythrocyte Sed Rateon 11-14 SED RATE 39 mm/hr High 0- [facility] Comment on above: Order Comment: 208 Performed By: #### L 501.6710, L100.0100, L101.9900, L500.4050, L501.8820 ####[facility] [address] [place], [place], [address] Erythrocyte distribution wid th ratioOrdered By: Kelli Salgado on 11-14-2024 Erythrocyte distribution width (RBC) [Ratio] 14.4 % 11.6-14.[address] [facility] Erythrocyte distribution wid th standard deviationOrdered By: Kelli Salgado on 11-14-2024 Erythrocyte distribution width (RBC) [Ratio] 41.3 fl 35.1-43.[address] [facility] Erythrocyte sedimentation ra teOrdered By: Kelli Salgado on 11-14-2024 ESR (Bld) [Velocity] 39 mm/h High 0- [facility] Glomerular filtration rate ( GFR) estimation/1.73 sq m using serum, plasma, or whole bOrdered By: Kelli Salgado on 11-14-2024 GFR/1.73 sq M.predicted among non-blacks MDRD (S/P/Bld) [Vol rate/Area] 101 mL/min/{1.73_m2} >60 [facility] Comment on above: mL/min/1.73m2 CKD-EP I Creatinine Equation (2020) Hematocrit Auto (Bld) [Volum e fraction]Ordered By: Kelli Salgado on 11-14-2024 Hematocrit (Bld) [Volume fraction] 36.6 % Low 40-[address] [facility] Hemoglobin measurementOrdere d By: Kelli Salgado on 11-14-2024 Hemoglobin (Bld) [Mass/Vol] 11.9 g/dL Low 13.0-16.[address] [facility] Immature granulocytes/100 WB C Auto (Bld)Ordered By: Kelli Salgado on 11-14-2024 Immature granulocytes/100 WBC (Bld) 0.100 % 0.0-0.[address] [facility] Comment on above: IG% - Immature Granu locytes (promyelocytes, myelocytes and metamyelocytes) > 1% indicates that a LEFT SHIFT is Present. Laboratory - Chemistry and C hemistry - challengeOrdered By: Kelli Salgado on 11-14-2024 AST [Catalytic activity/Vol] 23 U/L <[address] [facility] MCV (mean corpuscular volume ) determinationOrdered By: Kelli Salgado on 11-14-2024 MCV (RBC) [Entitic vol] 81.9 fL 80-94 [facility] Mean corpuscular hemoglobin (MCH) determinationOrdered By: Kelli Salgado on 11-14-2024 MCH (RBC) [Entitic mass] 26.6 pg Low 27.0-32.[address] [facility] Mean corpuscular hemoglobin concentration (MCHC) determinationOrdered By: Kelli Salgado on 11-14-2024 MCHC (RBC) [Mass/Vol] 32.5 g/dL 32-36 [facility] Mean platelet volume determi nationOrdered By: Kelli Salgado on 11-14-2024 Platelet mean volume (Bld) [Entitic vol] 11.3 fL 6.2-12.[address] [facility] Monocyte percentageOrdered B y: Kelli Salgado on 11-14-2024 Monocytes/100 WBC (Bld) 8.5 % 0-10 [facility] Neutrophil percentageOrdered By: Kelli Salgado on 11-14-2024 Neutrophils/100 WBC (Bld) 46.5 % Low 47-[address] [facility] No Panel InformationOrdered By: Kelli Salgado on 11-14-2024 23 U/L <[address] [facility] Nucleated red blood cell per centageOrdered By: Kelli Salgado on 11-14-2024 Nucleated RBC/100 WBC (Bld) [Ratio] 0 % 0-[address] [facility] Platelet countOrdered By: Chris Salgado on 11-14-2024 Platelets (Bld) [#/Vol] 199 10*3/uL 150-[address] [facility] Potassium measurement (mass/ volume)Ordered By: Kelli Salgado on 11-14-2024 Potassium (Unsp spec) [Mass/Vol] 4.1 mmol/L 3.3-5.[address] [facility] RBC Auto (Bld) [#/Vol]Ordere d By: Kelli Salgado on 11-14-2024 RBC (Bld) [#/Vol] 4.47 10*6/uL Low 4.6-6.2 [facility] Serum creatinine measurement (mass/volume)Ordered By: Kelli Salgado on 11-14-2024 Creatinine [Mass/Vol] 0.67 mg/dL Low 0.70-1.20 [facility] Serum globulin measurementOr dered By: Kelli Salgado on 11-14-2024 Globulin (S) [Mass/Vol] 3.3 g/dL 2.2-4.2 [facility] Serum glucose measurement (m ass/volume)Ordered By: Kelli Salgado on 11-14-2024 Glucose [Mass/Vol] 124 mg/dL High 70-99 [facility] Serum or plasma C reactive p rotein measurement (mass/volume)Ordered By: Kelli Salgado on 11-14-2024 CRP [Mass/Vol] 12.40 mg/L High 0.0-3.[address] [facility] Serum or plasma alanine herrmann otransferase (ALT) measurementOrdered By: Kelli Salgado on 11-14-2024 ALT [Catalytic activity/Vol] 18 U/L <[address] [facility] Serum or plasma albumin everardo urement (mass/volume)Ordered By: Kelli Salgado on 11-14-2024 Albumin [Mass/Vol] 3.4 g/dL 3.4-4.8 [facility] Serum or plasma albumin/glob ulin mass ratioOrdered By: Kelli Salgado on 11-14-2024 Albumin/Globulin [Mass ratio] 1.0 {ratio} 0.9-2.[address] [facility] Serum or plasma alkaline kaiser sphatase measurementOrdered By: Kelli Salgado on 11-14-2024 ALP [Catalytic activity/Vol] 110 U/L 40-[address] [facility] Serum or plasma calcium everardo urement (mass/volume)Ordered By: Kelli Salgado on 11-14-2024 Calcium [Mass/Vol] 9.6 mg/dL 7.6-11.0 [facility] Serum or plasma urea nitroge n measurement (mass/volume)Ordered By: Kelli Salgado on 11-14-2024 Urea nitrogen [Mass/Vol] 31 mg/dL High 4-[address] [facility] Sodium levelOrdered By: Nilay Salgado on 11-14-2024 Sodium [Moles/Vol] 141 mmol/L 133-145 [facility] Total proteinOrdered By: Tawanda Salgado on 11-14-2024 Protein [Mass/Vol] 6.7 g/dL 5.9-8.4 [facility] Trough vancomycin levelOrder ed By: Kelli Salgado on 11-14-2024 Vancomycin trough [Mass/Vol] 17.6 ug/mL High 5.0-15.[address] [facility] Comment on above: Recommended goal tro ugh ranges are generally 10-15 mcg/ml for less severe/complicated infections such as cellulitis or UTI and 15-20 mcg/ml for more severe/complicated infections such as bacteremia/sepsis, osteomyelitis, pneumonia or meningitis. Goal trough ranges should take into account indication, patient-specific factors and organism REUBEN.VANCOMYCIN STANDARED DRUG THERAPY TROUGH LEVEL: 5.0 - 15.0 mg/L VANCOMYCIN HIGH INTENSITY THERAPY TROUGH LEVEL: 15.0 - 20.0 mg/L High Intensity therapy recommended for serious lifethreatening infections include:- Gpffqmtazr-Aahlpltpluxg-Ilquwahrx (Ventilator/Healtcare Associated)-Sepsis PLEASE CONTACT PHARMACY SERVICES (#[id number]) FOR INTERPRETATIONOF RESULTS. Vancomycin, Trough Levelon 0 11-14-2024 VANCO, TROUGH 17.6 ug/mL High 5.0-15.[address] [facility] Comment on above: Order Comment: Result Comment: [place] mmended goal trough ranges are generally 10-15 mcg/mlfor less severe/complicated infections such as cellulitisor UTI and 15-20 mcg/ml for more severe/complicatedinfections such as bacteremia/sepsis, osteomyelitis,pneumonia or meningitis. Goal trough ranges should takeinto account indication, patient-specific factors andorganism REUBEN.VANCOMYCIN STANDARED DRUG THERAPY TROUGH LEVEL: 5.0 - 15.0 mg/LVANCOMYCIN HIGH INTENSITY THERAPY TROUGH LEVEL: 15.0 - 20.0 mg/LHigh Intensity therapy recommended for serious lifethreatening infections include:- Xqnljlocft-Lkxmjjzkjrnt-Uexogidjr (Ventilator/Healtcare Associated)-SepsisPLEASE CONTACT PHARMACY SERVICES (#[id number]) FOR INTERPRETATIONOF RESULTS. Performed By: #### L 501.6710, L100.0100, L101.9900, L500.4050, L501.8820 ####[facility] [address] [place], [address] White blood cell (WBC) count Ordered By: Kelli Salgado on 11-14-2024 WBC (Bld) [#/Vol] 6.7 10*3/uL 4.4-11.0 [facility] Absolute lymphocyte countOrd ered By: Kelli Salgado on 11-07-2024 Lymphocytes Auto (Unsp spec) [#/Vol] 2.39 10*3/uL 0.83-4.[address] [facility] Absolute neutrophil countOrd ered By: Kelli Salgado on 11-07-2024 Neutrophils (Bld) [#/Vol] 3.3 10*3/uL 2.0-7.[address] [facility] Anion gap in Serum or Plasma Ordered By: Kelli Salgado on 11-07-2024 Anion gap [Moles/Vol] 11 mmol/L 11-01 [facility] Automated lymphocyte count a s percentage of total leukocytesOrdered By: Kelli Salgado on 11-07-2024 Lymphocytes/100 WBC Auto (Unsp spec) 36.4 % 19-[address] [facility] BUN/creatinine ratioOrdered By: Kelli Salgado on 11-07-2024 Urea nitrogen/Creatinine [Mass ratio] 38.8 mg/mg High 10-[address] [facility] Basophil percentageOrdered B y: Kelli Salgado on 11-07-2024 Basophils/100 WBC (Bld) 0.9 % 0-1 [facility] Bilirubin, totalOrdered By: Kelli Salgado on 11-07-2024 Bilirubin [Mass/Vol] 0.51 mg/dL 0.00-1.30 [facility] CBC W/Diff, Automatedon 10-19 Absolute Lymph 2.39 X10 3/uL Normal 0.83-4.[address] [facility] Comment on above: Order Comment: 208 Performed By: #### L 101.9900, L100.0100, L501.8820, L501.6710, L500.4050 ####[facility] [address] [place], [address] Absolute Neut 3.3 X10 3/uL Normal 2.0-7.[address] [facility] Comment on above: Order Comment: 208 Performed By: #### L 101.9900, L100.0100, L501.8820, L501.6710, L500.4050 ####[facility] [address] [place], [address] Basophils/100 WBC (Bld) 0.9 % Normal 0-1 [facility] Comment on above: Order Comment: 208 Performed By: #### L 101.9900, L100.0100, L501.8820, L501.6710, L500.4050 ####[facility] [facility] [address] [place], [address] Eosinophils/100 WBC (Bld) 5.5 % High 0-[address] [facility] Comment on above: Order Comment: 208 Performed By: #### L 101.9900, L100.0100, L501.8820, L501.6710, L500.4050 ####[facility] [address] [place], [address] Erythrocyte distribution width (RBC) [Ratio] 14.1 % Normal 11.6-14.[address] [facility] Comment on above: Order Comment: 208 Performed By: #### L 101.9900, L100.0100, L501.8820, L501.6710, L500.4050 ####[facility] [address] [place], [address] Hematocrit (Bld) [Volume fraction] 36.4 % Low 40-[address] [facility] Comment on above: Order Comment: 208 Performed By: #### L 101.9900, L100.0100, L501.8820, L501.6710, L500.4050 ####[facility] [address] [place], [address] Hemoglobin (Bld) [Mass/Vol] 11.8 g/dL Low 13.0-16.[address] [facility] Comment on above: Order Comment: 208 Performed By: #### L 101.9900, L100.0100, L501.8820, L501.6710, L500.4050 ####[facility] [address] [place], [address] IG% 0.300 Normal 0.0-0.[address] [facility] Comment on above: Order Comment: 208 Result Comment: IG% - Immature Granulocytes (promyelocytes, myelocytes andmetamyelocytes) > 1% indicates that a LEFT SHIFT is Present. Performed By: #### L 101.9900, L100.0100, L501.8820, L501.6710, L500.4050 ####[facility] [address] [place], [address] Lymphocytes/100 WBC (Bld) 36.4 % Normal 19-[address] [facility] Comment on above: Order Comment: 208 Performed By: #### L 101.9900, L100.0100, L501.8820, L501.6710, L500.4050 ####[facility] [address] [place], [address] MCH (RBC) [Entitic mass] 26.3 pg Low 27.0-32.[address] [facility] Comment on above: Order Comment: 208 Performed By: #### L 101.9900, L100.0100, L501.8820, L501.6710, L500.4050 ####[facility] [address] [place], [address] MCHC (RBC) [Mass/Vol] 32.4 g/dL Normal 32-36 [facility] Comment on above: Order Comment: 208 Performed By: #### L 101.9900, L100.0100, L501.8820, L501.6710, L500.4050 ####[facility] [address] [place], [address] MCV (RBC) [Entitic vol] 81.1 fL Normal 80-94 [facility] Comment on above: Order Comment: 208 Performed By: #### L 101.9900, L100.0100, L501.8820, L501.6710, L500.4050 ####[facility] [address] [place], [address] Monocytes/100 WBC (Bld) 6.9 % Normal 0-10 [facility] Comment on above: Order Comment: 208 Performed By: #### L 101.9900, L100.0100, L501.8820, L501.6710, L500.4050 ####[facility] [address] [place], [address] Neutrophils/100 WBC (Bld) 50.0 % Normal 47-[address] [facility] Comment on above: Order Comment: 208 Performed By: #### L 101.9900, L100.0100, L501.8820, L501.6710, L500.4050 ####[facility] [address] [place], [address] Nucleated RBC (Bld) [#/Vol] 0 10*3/uL Normal 0-[address] [facility] Comment on above: Order Comment: 208 Performed By: #### L 101.9900, L100.0100, L501.8820, L501.6710, L500.4050 ####[facility] [address] [place], [address] Platelet mean volume (Bld) [Entitic vol] 10.8 fL Normal 6.2-12.[address] [facility] Comment on above: Order Comment: 208 Performed By: #### L 101.9900, L100.0100, L501.8820, L501.6710, L500.4050 ####[facility] [address] [place], [address] Platelets (Bld) [#/Vol] 239 10*3/uL Normal 150-[address] [facility] Comment on above: Order Comment: 208 Performed By: #### L 101.9900, L100.0100, L501.8820, L501.6710, L500.4050 ####[facility] [address] [place], [address] RBC (Bld) [#/Vol] 4.49 10*6/uL Low 4.6-6.2 [facility] Comment on above: Order Comment: 208 Performed By: #### L 101.9900, L100.0100, L501.8820, L501.6710, L500.4050 ####[facility] [address] [place], [address] RDW SD 41.3 fl Normal 35.1-43.[address] [facility] Comment on above: Order Comment: 208 Performed By: #### L 101.9900, L100.0100, L501.8820, L501.6710, L500.4050 ####[facility] [address] [place], [address] WBC (Bld) [#/Vol] 6.6 10*3/uL Normal 4.4-11.0 [facility] Comment on above: Order Comment: 208 Performed By: #### L 101.9900, L100.0100, L501.8820, L501.6710, L500.4050 ####[facility] [address] [place], [address] CRPon 11-07-2024 C-REACTIVE PROT 10.60 mg/L High 0.0-3.[address] [facility] Comment on above: Order Comment: 208 Performed By: #### L 101.9900, L100.0100, L501.8820, L501.6710, L500.4050 ####[facility] [address] [place], [address] Carbon dioxide, total [Moles /volume] in Central venous bloodOrdered By: Kelli Salgado on 11-07-2024 CO2 [Moles/Vol] 27.4 mmol/L 21.0-32.[address] [facility] Chloride assayOrdered By: Chris Salgado on 11-07-2024 Chloride [Moles/Vol] 101 mmol/L 98-108 [facility] Comprehensive Metabolic Prof ilon 11-07-2024 Albumin [Mass/Vol] 3.3 g/dL Low 3.4-4.8 [facility] Comment on above: Order Comment: 208 Performed By: #### L 101.9900, L100.0100, L501.8820, L501.6710, L500.4050 ####[facility] [address] [place], [address] Albumin/Globulin [Mass ratio] 0.9 {ratio} Normal 0.9-2.[address] [facility] Comment on above: Order Comment: 208 Performed By: #### L 101.9900, L100.0100, L501.8820, L501.6710, L500.4050 ####[facility] [address] [place], [address] ALK PHOS 111 U/L Normal 40-[address] [facility] Comment on above: Order Comment: 208 Performed By: #### L 101.9900, L100.0100, L501.8820, L501.6710, L500.4050 ####[facility] [address] [place], [address] ALT [Catalytic activity/Vol] 26 U/L Normal <=[address] [facility] Comment on above: Order Comment: 208 Performed By: #### L 101.9900, L100.0100, L501.8820, L501.6710, L500.4050 ####[facility] [address] [place], [address] AST [Catalytic activity/Vol] 34 U/L Normal <=[address] [facility] Comment on above: Order Comment: 208 Performed By: #### L 101.9900, L100.0100, L501.8820, L501.6710, L500.4050 ####[facility] [address] [place], [address] Bilirubin [Mass/Vol] 0.51 mg/dL Normal 0.00-1.30 [facility] Comment on above: Order Comment: 208 Performed By: #### L 101.9900, L100.0100, L501.8820, L501.6710, L500.4050 ####[facility] [address] [place], [address] BUN/CRE 38.8 RATIO High 10-[address] [facility] Comment on above: Order Comment: 208 Performed By: #### L 101.9900, L100.0100, L501.8820, L501.6710, L500.4050 ####[facility] [address] [place], [address] Calcium [Mass/Vol] 9.8 mg/dL Normal 7.6-11.0 [facility] Comment on above: Order Comment: 208 Performed By: #### L 101.9900, L100.0100, L501.8820, L501.6710, L500.4050 ####[facility] [address] [place], [address] Chloride [Moles/Vol] 101 mmol/L Normal 98-108 [facility] Comment on above: Order Comment: 208 Performed By: #### L 101.9900, L100.0100, L501.8820, L501.6710, L500.4050 ####[facility] [address] [place], [address] CO2 [Moles/Vol] 27.4 mmol/L Normal 21.0-32.[address] [facility] Comment on above: Order Comment: 208 Performed By: #### L 101.9900, L100.0100, L501.8820, L501.6710, L500.4050 ####[facility] [address] [place], [address] Creatinine [Mass/Vol] 0.66 mg/dL Low 0.70-1.20 [facility] Comment on above: Order Comment: 208 Performed By: #### L 101.9900, L100.0100, L501.8820, L501.6710, L500.4050 ####[facility] [address] [place], [address] GAP 11 Normal 5-[address] [facility] Comment on above: Order Comment: 208 Performed By: #### L 101.9900, L100.0100, L501.8820, L501.6710, L500.4050 ####[facility] [address] [place], [address] GFR/1.73 sq M.predicted among non-blacks MDRD (S/P/Bld) [Vol rate/Area] 101 mL/min/{1.73_m2} Normal >60 [facility] Comment on above: Order Comment: 208 Result Comment: mL/m in/1.73m2 CKD-EPI Creatinine Equation (2020) Performed By: #### L 101.9900, L100.0100, L501.8820, L501.6710, L500.4050 ####[facility] [address] [place], [address] Globulin (S) [Mass/Vol] 3.5 g/dL Normal 2.2-4.2 [facility] Comment on above: Order Comment: 208 Performed By: #### L 101.9900, L100.0100, L501.8820, L501.6710, L500.4050 ####[facility] [address] [place], [address] Glucose [Mass/Vol] 132 mg/dL High 70-99 [facility] Comment on above: Order Comment: 208 Performed By: #### L 101.9900, L100.0100, L501.8820, L501.6710, L500.4050 ####[facility] [address] [place], [address] Potassium [Moles/Vol] 4.2 mmol/L Normal 3.3-5.1 [facility] Comment on above: Order Comment: 208 Performed By: #### L 101.9900, L100.0100, L501.8820, L501.6710, L500.4050 ####[facility] [address] [place], [address] Sodium [Moles/Vol] 140 mmol/L Normal 133-145 [facility] Comment on above: Order Comment: 208 Performed By: #### L 101.9900, L100.0100, L501.8820, L501.6710, L500.4050 ####[facility] [address] [place], [place], [id number] T PROT 6.9 g/dL Normal 5.9-8.[address] [facility] Comment on above: Order Comment: 208 Performed By: #### L 101.9900, L100.0100, L501.8820, L501.6710, L500.4050 ####[facility] [address] [place], [place], [address] Urea nitrogen [Mass/Vol] 26 mg/dL High 4-[address] [facility] Comment on above: Order Comment: 208 Performed By: #### L 101.9900, L100.0100, L501.8820, L501.6710, L500.4050 ####[facility] [address] [place], [address] Eosinophil percentageOrdered By: Kelli Salgado on 11-07-2024 Eosinophils/100 WBC (Bld) 5.5 % High 0-[address] [facility] Erythrocyte Sed Rateon 11-07 SED RATE 41 mm/hr High 0-[address] [facility] Comment on above: Order Comment: 208 Performed By: #### L 101.9900, L100.0100, L501.8820, L501.6710, L500.4050 ####[facility] [address] [place], [place], [id number] Erythrocyte distribution wid th ratioOrdered By: Kelli Salgado on 11-07-2024 Erythrocyte distribution width (RBC) [Ratio] 14.1 % 11.6-14.[address] [facility] Erythrocyte distribution wid th standard deviationOrdered By: Kelli Salgado on 11-07-2024 Erythrocyte distribution width (RBC) [Ratio] 41.3 fl 35.1-43.[address] [facility] Erythrocyte sedimentation ra teOrdered By: Kelli Salgado on 11-07-2024 ESR (Bld) [Velocity] 41 mm/h High 0-20 [facility] Glomerular filtration rate ( GFR) estimation/1.73 sq m using serum, plasma, or whole bOrdered By: Kelli Salgado on 11-07-2024 GFR/1.73 sq M.predicted among non-blacks MDRD (S/P/Bld) [Vol rate/Area] 101 mL/min/{1.73_m2} >60 [facility] Comment on above: mL/min/1.73m2 CKD-EP I Creatinine Equation (2020) Hematocrit Auto (Bld) [Volum e fraction]Ordered By: Kelli Salgado on 11-07-2024 Hematocrit (Bld) [Volume fraction] 36.4 % Low 40-[address] [facility] Hemoglobin measurementOrdere d By: Kelli Salgado on 11-07-2024 Hemoglobin (Bld) [Mass/Vol] 11.8 g/dL Low 13.0-16.[address] [facility] Immature granulocytes/100 WB C Auto (Bld)Ordered By: Kelli Salgado on 11-07-2024 Immature granulocytes/100 WBC (Bld) 0.300 % 0.0-0.[address] [facility] Comment on above: IG% - Immature Granu locytes (promyelocytes, myelocytes and metamyelocytes) > 1% indicates that a LEFT SHIFT is Present. Laboratory - Chemistry and C hemistry - challengeOrdered By: Kelli Salgado on 11-07-2024 AST [Catalytic activity/Vol] 34 U/L <[address] [facility] MCV (mean corpuscular volume ) determinationOrdered By: Kelli Salgado on 11-07-2024 MCV (RBC) [Entitic vol] 81.1 fL 80-94 [facility] Mean corpuscular hemoglobin (MCH) determinationOrdered By: Kelli Salgado on 11-07-2024 MCH (RBC) [Entitic mass] 26.3 pg Low 27.0-32.[address] [facility] Mean corpuscular hemoglobin concentration (MCHC) determinationOrdered By: Kelli Salgado on 11-07-2024 MCHC (RBC) [Mass/Vol] 32.4 g/dL 32-36 [facility] Mean platelet volume determi nationOrdered By: Kelli Salgado on 11-07-2024 Platelet mean volume (Bld) [Entitic vol] 10.8 fL 6.2-12.[address] [facility] Monocyte percentageOrdered B y: Kelli Salgado on 11-07-2024 Monocytes/100 WBC (Bld) 6.9 % 0-10 [facility] Neutrophil percentageOrdered By: Kelli Salgado on 11-07-2024 Neutrophils/100 WBC (Bld) 50.0 % 47-[address] [facility] No Panel InformationOrdered By: Kelli Salgado on 11-07-2024 34 U/L <[address] [facility] Nucleated red blood cell per centageOrdered By: Kelli Salgado on 11-07-2024 Nucleated RBC/100 WBC (Bld) [Ratio] 0 % 0-[address] [facility] Platelet countOrdered By: Chris Salgado on 11-07-2024 Platelets (Bld) [#/Vol] 239 10*3/uL 150-[address] [facility] Potassium measurement (mass/ volume)Ordered By: Kelli Salgado on 11-07-2024 Potassium (Unsp spec) [Mass/Vol] 4.2 mmol/L 3.3-5.[address] [facility] RBC Auto (Bld) [#/Vol]Ordere d By: Kelli Salgado on 11-07-2024 RBC (Bld) [#/Vol] 4.49 10*6/uL Low 4.6-6.2 [facility] Serum creatinine measurement (mass/volume)Ordered By: Kelli Salgado on 11-07-2024 Creatinine [Mass/Vol] 0.66 mg/dL Low 0.70-1.20 [facility] Serum globulin measurementOr dered By: Kelli Salgado on 11-07-2024 Globulin (S) [Mass/Vol] 3.5 g/dL 2.2-4.2 [facility] Serum glucose measurement (m ass/volume)Ordered By: Kelli Salgado on 11-07-2024 Glucose [Mass/Vol] 132 mg/dL High 70-99 [facility] Serum or plasma C reactive p rotein measurement (mass/volume)Ordered By: Kelli Salgado on 11-07-2024 CRP [Mass/Vol] 10.60 mg/L High 0.0-3.[address] [facility] Serum or plasma alanine herrmann otransferase (ALT) measurementOrdered By: Kelli Salgado on 11-07-2024 ALT [Catalytic activity/Vol] 26 U/L <[address] [facility] Serum or plasma albumin everardo urement (mass/volume)Ordered By: Kelli Salgado on 11-07-2024 Albumin [Mass/Vol] 3.3 g/dL Low 3.4-4.8 [facility] Serum or plasma albumin/glob ulin mass ratioOrdered By: Kelli Salgado on 11-07-2024 Albumin/Globulin [Mass ratio] 0.9 {ratio} 0.9-2.[address] [facility] Serum or plasma alkaline kaiser sphatase measurementOrdered By: Kelli Salgado on 11-07-2024 ALP [Catalytic activity/Vol] 111 U/L 40-[address] [facility] Serum or plasma calcium everardo urement (mass/volume)Ordered By: Kelli Salgado on 11-07-2024 Calcium [Mass/Vol] 9.8 mg/dL 7.6-11.0 [facility] Serum or plasma urea nitroge n measurement (mass/volume)Ordered By: Kelli Salgado on 11-07-2024 Urea nitrogen [Mass/Vol] 26 mg/dL High 4-[address] [facility] Sodium levelOrdered By: Nilay Salgado on 11-07-2024 Sodium [Moles/Vol] 140 mmol/L 133-145 [facility] Total proteinOrdered By: Tawanda Salgado on 11-07-2024 Protein [Mass/Vol] 6.9 g/dL 5.9-8.4 [facility] Trough vancomycin levelOrder ed By: Kelli Salgado on 11-07-2024 Vancomycin trough [Mass/Vol] 17.1 ug/mL High 5.0-15.[address] [facility] Comment on above: Recommended goal tro ugh ranges are generally 10-15 mcg/ml for less severe/complicated infections such as cellulitis or UTI and 15-20 mcg/ml for more severe/complicated infections such as bacteremia/sepsis, osteomyelitis, pneumonia or meningitis. Goal trough ranges should take into account indication, patient-specific factors and organism REUBEN.VANCOMYCIN STANDARED DRUG THERAPY TROUGH LEVEL: 5.0 - 15.0 mg/L VANCOMYCIN HIGH INTENSITY THERAPY TROUGH LEVEL: 15.0 - 20.0 mg/L High Intensity therapy recommended for serious lifethreatening infections include:- Kveezcimso-Tccndjtmvcwo-Pnkfhrfro (Ventilator/Healtcare Associated)-Sepsis PLEASE CONTACT PHARMACY SERVICES (#[id number]) FOR INTERPRETATIONOF RESULTS. Vancomycin, Trough Levelon 0 11-07-2024 VANCO, TROUGH 17.1 ug/mL High 5.0-15.[address] [facility] Comment on above: Order Comment: Result Comment: [place] mmended goal trough ranges are generally 10-15 mcg/mlfor less severe/complicated infections such as cellulitisor UTI and 15-20 mcg/ml for more severe/complicatedinfections such as bacteremia/sepsis, osteomyelitis,pneumonia or meningitis. Goal trough ranges should takeinto account indication, patient-specific factors andorganism REUBEN.VANCOMYCIN STANDARED DRUG THERAPY TROUGH LEVEL: 5.0 - 15.0 mg/LVANCOMYCIN HIGH INTENSITY THERAPY TROUGH LEVEL: 15.0 - 20.0 mg/LHigh Intensity therapy recommended for serious lifethreatening infections include:- Wrhxkwvkkg-Qftoejhdnyki-Ebjxjbqdn (Ventilator/Healtcare Associated)-SepsisPLEASE CONTACT PHARMACY SERVICES (#[id number]) FOR INTERPRETATIONOF RESULTS. Performed By: #### L 101.9900, L100.0100, L501.8820, L501.6710, L500.4050 ####[facility] [address] [place], [address] White blood cell (WBC) count Ordered By: Kelli Salgado on 11-07-2024 WBC (Bld) [#/Vol] 6.6 10*3/uL 4.4-11.0 [facility] Trough vancomycin levelOrder ed By: Kelli Salgado on 11-02-2024 Vancomycin trough [Mass/Vol] 14.1 ug/mL 5.0-15.[address] [facility] Comment on above: Recommended goal tro ugh ranges are generally 10-15 mcg/ml for less severe/complicated infections such as cellulitis or UTI and 15-20 mcg/ml for more severe/complicated infections such as bacteremia/sepsis, osteomyelitis, pneumonia or meningitis. Goal trough ranges should take into account indication, patient-specific factors and organism REUBEN.VANCOMYCIN STANDARED DRUG THERAPY TROUGH LEVEL: 5.0 - 15.0 mg/L VANCOMYCIN HIGH INTENSITY THERAPY TROUGH LEVEL: 15.0 - 20.0 mg/L High Intensity therapy recommended for serious lifethreatening infections include:- Fxdpmupoag-Okoadlihuqgg-Rmiwivlvo (Ventilator/Healtcare Associated)-Sepsis PLEASE CONTACT PHARMACY SERVICES (#[id number]) FOR INTERPRETATIONOF RESULTS. Vancomycin, Trough Levelon 11-02-2024 VANCO, TROUGH 14.1 ug/mL Normal 5.0-15.[address] [facility] Comment on above: Order Comment: Result Comment: [place] mmended goal trough ranges are generally 10-15 mcg/mlfor less severe/complicated infections such as cellulitisor UTI and 15-20 mcg/ml for more severe/complicatedinfections such as bacteremia/sepsis, osteomyelitis,pneumonia or meningitis. Goal trough ranges should takeinto account indication, patient-specific factors andorganism REUBEN.VANCOMYCIN STANDARED DRUG THERAPY TROUGH LEVEL: 5.0 - 15.0 mg/LVANCOMYCIN HIGH INTENSITY THERAPY TROUGH LEVEL: 15.0 - 20.0 mg/LHigh Intensity therapy recommended for serious lifethreatening infections include:- Diipxjyapi-Chikbnpuhruj-Hfrslsrvx (Ventilator/Healtcare Associated)-SepsisPLEASE CONTACT PHARMACY SERVICES (#[id number]) FOR INTERPRETATIONOF RESULTS. Performed By: #### L 501.8820 ####[facility] [address] [place], [address] Anion gap in Serum or Plasma Ordered By: Kelli Salgado on 10-31-2024 Anion gap [Moles/Vol] 10 mmol/L 11-01 [facility] BUN/creatinine ratioOrdered By: Kelli Salgado on 10-31-2024 Urea nitrogen/Creatinine [Mass ratio] 34.6 mg/mg High 04-[address] [facility] Bilirubin, totalOrdered By: Kelli Salgado on 10-31-2024 Bilirubin [Mass/Vol] 0.72 mg/dL 0.00-1.30 [facility] CBC-Complete Blood Cnt No Savanah lundberg 10-31-2024 Erythrocyte distribution width (RBC) [Ratio] 14.1 % Normal 11.6-14.[address] [facility] Comment on above: Order Comment: 208.1 Performed By: #### L 500.4050, L100.0500, L101.9900, L501.6710 ####[facility] [address] [place], [address] Hematocrit (Bld) [Volume fraction] 36.4 % Low 40-[address] [facility] Comment on above: Order Comment: .1 Performed By: #### L 500.4050, L100.0500, L101.9900, L501.6710 ####[facility] [address] [place], [address] Hemoglobin (Bld) [Mass/Vol] 11.9 g/dL Low 13.0-16.[address] [facility] Comment on above: Order Comment: .1 Performed By: #### L 500.4050, L100.0500, L101.9900, L501.6710 ####[facility] [address] [place], [address] MCH (RBC) [Entitic mass] 26.3 pg Low 27.0-32.[address] [facility] Comment on above: Order Comment: 208.1 Performed By: #### L 500.4050, L100.0500, L101.9900, L501.6710 ####[facility] [address] [place], [address] MCHC (RBC) [Mass/Vol] 32.7 g/dL Normal 32-36 [facility] Comment on above: Order Comment: 208.1 Performed By: #### L 500.4050, L100.0500, L101.9900, L501.6710 ####[facility] [address] [place], [address] MCV (RBC) [Entitic vol] 80.5 fL Normal 80-94 [facility] Comment on above: Order Comment: 208.1 Performed By: #### L 500.4050, L100.0500, L101.9900, L501.6710 ####[facility] [address] [place], [address] Platelet mean volume (Bld) [Entitic vol] 11.0 fL Normal 6.2-12.[address] [facility] Comment on above: Order Comment: 208.1 Performed By: #### L 500.4050, L100.0500, L101.9900, L501.6710 ####[facility] [address] [place], [address] Platelets (Bld) [#/Vol] 215 10*3/uL Normal 150-[address] [facility] Comment on above: Order Comment: .1 Performed By: #### L 500.4050, L100.0500, L101.9900, L501.6710 ####[facility] [address] [place], [address] RBC (Bld) [#/Vol] 4.52 10*6/uL Low 4.6-6.2 [facility] Comment on above: Order Comment: .1 Performed By: #### L 500.4050, L100.0500, L101.9900, L501.6710 ####[facility] [address] [place], [address] RDW SD 40.8 fl Normal 35.1-43.[address] [facility] Comment on above: Order Comment: 208.1 Performed By: #### L 500.4050, L100.0500, L101.9900, L501.6710 ####[facility] [address] [place], [address] WBC (Bld) [#/Vol] 8.2 10*3/uL Normal 4.4-11.0 [facility] Comment on above: Order Comment: 208.1 Performed By: #### L 500.4050, L100.0500, L101.9900, L501.6710 ####[facility] [address] [place], [address] CRPon 10-31-2024 C-REACTIVE PROT 17.00 mg/L High 0.0-3.[address] [facility] Comment on above: Order Comment: .1 Performed By: #### L 500.4050, L100.0500, L101.9900, L501.6710 ####[facility] [address] [place], [address] Carbon dioxide, total [Moles /volume] in Central venous bloodOrdered By: Kelli Salgado on 10-31-2024 CO2 [Moles/Vol] 27.4 mmol/L 21.0-32.[address] [facility] Chloride assayOrdered By: Chris Salgado on 10-31-2024 Chloride [Moles/Vol] 99 mmol/L 98-108 [facility] Comprehensive Metabolic Prof ilon 10-31-2024 Albumin [Mass/Vol] 3.2 g/dL Low 3.4-4.8 [facility] Comment on above: Order Comment: . Performed By: #### L 500.4050, L100.0500, L101.9900, L501.6710 ####[facility] [address] [place], [address] Albumin/Globulin [Mass ratio] 0.9 {ratio} Normal 0.9-2.[address] [facility] Comment on above: Order Comment: .1 Performed By: #### L 500.4050, L100.0500, L101.9900, L501.6710 ####[facility] [address] [place], [address] ALK PHOS 113 U/L Normal 40-[address] [facility] Comment on above: Order Comment: 208.1 Performed By: #### L 500.4050, L100.0500, L101.9900, L501.6710 ####[facility] [address] [place], [address] ALT [Catalytic activity/Vol] 16 U/L Normal <=[address] [facility] Comment on above: Order Comment: 208.1 Performed By: #### L 500.4050, L100.0500, L101.9900, [id number] ####[facility] [address] [place], [address] AST [Catalytic activity/Vol] 28 U/L Normal <=[address] [facility] Comment on above: Order Comment: 208.1 Performed By: #### L 500.4050, L100.0500, L101.9900, L501.6710 ####[facility] [address] [place], [address] Bilirubin [Mass/Vol] 0.72 mg/dL Normal 0.00-1.30 [facility] Comment on above: Order Comment: 208.1 Performed By: #### L 500.4050, L100.0500, L101.9900, [id number] ####[facility] [address] [place], [address] BUN/CRE 34.6 RATIO High 10-[address] [facility] Comment on above: Order Comment: 208.1 Performed By: #### L 500.4050, L100.0500, L101.9900, [id number] ####[facility] [address] [place], [address] Calcium [Mass/Vol] 9.6 mg/dL Normal 7.6-11.0 [facility] Comment on above: Order Comment: 208.1 Performed By: #### L 500.4050, L100.0500, L101.9900, L501.6710 ####[facility] [address] [place], [address] Chloride [Moles/Vol] 99 mmol/L Normal 98-108 [facility] Comment on above: Order Comment: .1 Performed By: #### L 500.4050, L100.0500, L101.9900, [id number] ####[facility] [address] [place], [address] CO2 [Moles/Vol] 27.4 mmol/L Normal 21.0-32.[address] [facility] Comment on above: Order Comment: .1 Performed By: #### L 500.4050, L100.0500, L101.9900, [id number] ####[facility] [address] [place], [address] Creatinine [Mass/Vol] 0.66 mg/dL Low 0.70-1.20 [facility] Comment on above: Order Comment: . Performed By: #### L 500.4050, L100.0500, L101.9900, [id number] ####[facility] [address] [place], [address] GAP 10 Normal 5-[address] [facility] Comment on above: Order Comment: .1 Performed By: #### L 500.4050, L100.0500, L101.9900, [id number] ####[facility] [address] [place], [address] GFR/1.73 sq M.predicted among non-blacks MDRD (S/P/Bld) [Vol rate/Area] 101 mL/min/{1.73_m2} Normal >60 [facility] Comment on above: Order Comment: .1 Result Comment: mL/m in/1.73m2 CKD-EPI Creatinine Equation (2020) Performed By: #### L 500.4050, L100.0500, L101.9900, [id number] ####[facility] [facility] [address] [place], [address] Globulin (S) [Mass/Vol] 3.5 g/dL Normal 2.2-4.2 [facility] Comment on above: Order Comment: 208.1 Performed By: #### L 500.4050, L100.0500, L101.9900, [id number] ####[facility] [address] [place], [address] Glucose [Mass/Vol] 166 mg/dL High 70-99 [facility] Comment on above: Order Comment: 208.1 Performed By: #### L 500.4050, L100.0500, L101.9900, [id number] ####[facility] [address] [place], [address] Potassium [Moles/Vol] 4.3 mmol/L Normal 3.3-5.1 [facility] Comment on above: Order Comment: 208.1 Performed By: #### L 500.4050, L100.0500, L101.9900, [id number] ####[facility] [address] [place], [address] Sodium [Moles/Vol] 136 mmol/L Normal 133-145 [facility] Comment on above: Order Comment: 208.1 Performed By: #### L 500.4050, L100.0500, L101.9900, [id number] ####[facility] [address] [place], [address] T PROT 6.7 g/dL Normal 5.9-8.[address] [facility] Comment on above: Order Comment: 208.1 Performed By: #### L 500.4050, L100.0500, L101.9900, [id number] ####[facility] [address] [place], [address] Urea nitrogen [Mass/Vol] 23 mg/dL High 4-[address] [facility] Comment on above: Order Comment: 208.1 Performed By: #### L 500.4050, L100.0500, L101.9900, [id number] ####[facility] [address] [place], [place], [id number] Erythrocyte Sed Rateon 10-31 SED RATE 45 mm/hr High 0-[address] [facility] Comment on above: Order Comment: 208.1 Performed By: #### L 500.4050, L100.0500, L101.9900, [id number] ####[facility] [address] [place], [place], [address] Erythrocyte distribution wid th ratioOrdered By: Kelli Salgado on 10-31-2024 Erythrocyte distribution width (RBC) [Ratio] 14.1 % 11.6-14.[address] [facility] Erythrocyte distribution wid th standard deviationOrdered By: Kelli Salgado on 10-31-2024 Erythrocyte distribution width (RBC) [Ratio] 40.8 fl 35.1-43.[address] [facility] Erythrocyte sedimentation ra teOrdered By: Kelli Salgado on 10-31-2024 ESR (Bld) [Velocity] 45 mm/h High 0- [facility] Glomerular filtration rate ( GFR) estimation/1.73 sq m using serum, plasma, or whole bOrdered By: Kelli Salgado on 10-31-2024 GFR/1.73 sq M.predicted among non-blacks MDRD (S/P/Bld) [Vol rate/Area] 101 mL/min/{1.73_m2} >60 [facility] Comment on above: mL/min/1.73m2 CKD-EP I Creatinine Equation (2020) Hematocrit Auto (Bld) [Volum e fraction]Ordered By: Kelli Salgado on 10-31-2024 Hematocrit (Bld) [Volume fraction] 36.4 % Low 40-[address] [facility] Hemoglobin measurementOrdere d By: Kelli aSlgado on 10-31-2024 Hemoglobin (Bld) [Mass/Vol] 11.9 g/dL Low 13.0-16.[address] [facility] Laboratory - Chemistry and C hemistry - challengeOrdered By: Kelli Salgado on 10-31-2024 AST [Catalytic activity/Vol] 28 U/L <[address] [facility] MCV (mean corpuscular volume ) determinationOrdered By: Kelli Salgado on 10-31-2024 MCV (RBC) [Entitic vol] 80.5 fL 80-94 [facility] Mean corpuscular hemoglobin (MCH) determinationOrdered By: Kelli Salgado on 10-31-2024 MCH (RBC) [Entitic mass] 26.3 pg Low 27.0-32.[address] [facility] Mean corpuscular hemoglobin concentration (MCHC) determinationOrdered By: Kelli Salgado on 10-31-2024 MCHC (RBC) [Mass/Vol] 32.7 g/dL 32-36 [facility] Mean platelet volume determi nationOrdered By: Kelli Salgado on 10-31-2024 Platelet mean volume (Bld) [Entitic vol] 11.0 fL 6.2-12.[address] [facility] No Panel InformationOrdered By: Kelli Salgado on 10-31-2024 28 U/L <[address] [facility] Platelet countOrdered By: Chris Salgado on 10-31-2024 Platelets (Bld) [#/Vol] 215 10*3/uL 150-[address] [facility] Potassium measurement (mass/ volume)Ordered By: Kelli Salgado on 10-31-2024 Potassium (Unsp spec) [Mass/Vol] 4.3 mmol/L 3.3-5.[address] [facility] RBC Auto (Bld) [#/Vol]Ordere d By: Kelli Salgado on 10-31-2024 RBC (Bld) [#/Vol] 4.52 10*6/uL Low 4.6-6.2 [facility] Serum creatinine measurement (mass/volume)Ordered By: Kelli Salgado on 10-31-2024 Creatinine [Mass/Vol] 0.66 mg/dL Low 0.70-1.20 [facility] Serum globulin measurementOr dered By: Kelli Slagado on 10-31-2024 Globulin (S) [Mass/Vol] 3.5 g/dL 2.2-4.2 [facility] Serum glucose measurement (m ass/volume)Ordered By: Kelli Salgado on 10-31-2024 Glucose [Mass/Vol] 166 mg/dL High 70-99 [facility] Serum or plasma C reactive p rotein measurement (mass/volume)Ordered By: Kelli Salgado on 10-31-2024 CRP [Mass/Vol] 17.00 mg/L High 0.0-3.[address] [facility] Serum or plasma alanine herrmann otransferase (ALT) measurementOrdered By: Kelli Salgado on 10-31-2024 ALT [Catalytic activity/Vol] 16 U/L <[address] [facility] Serum or plasma albumin everardo urement (mass/volume)Ordered By: Kelli Salgado on 10-31-2024 Albumin [Mass/Vol] 3.2 g/dL Low 3.4-4.8 [facility] Serum or plasma albumin/glob ulin mass ratioOrdered By: Kelli Salgado on 10-31-2024 Albumin/Globulin [Mass ratio] 0.9 {ratio} 0.9-2.[address] [facility] Serum or plasma alkaline kaiser sphatase measurementOrdered By: Kelli Salgado on 10-31-2024 ALP [Catalytic activity/Vol] 113 U/L 40-[address] [facility] Serum or plasma calcium everardo urement (mass/volume)Ordered By: Kelli Salgado on 10-31-2024 Calcium [Mass/Vol] 9.6 mg/dL 7.6-11.0 [facility] Serum or plasma urea nitroge n measurement (mass/volume)Ordered By: Kelli Salgado on 10-31-2024 Urea nitrogen [Mass/Vol] 23 mg/dL High 4-[address] [facility] Sodium levelOrdered By: Nilay Salgado on 10-31-2024 Sodium [Moles/Vol] 136 mmol/L 133-145 [facility] Total proteinOrdered By: Tawanda Salgado on 10-31-2024 Protein [Mass/Vol] 6.7 g/dL 5.9-8.4 [facility] White blood cell (WBC) count Ordered By: Kelli Salgado on 10-31-2024 WBC (Bld) [#/Vol] 8.2 10*3/uL 4.4-11.0 [facility] GLUCOSE POCon 10-30-2024 Glucose [Mass/Vol] 170 mg/dL 70 - 179 mg/dL [facility] POC Sample Type CAPBL [facility] CBC,PLATELETSon 10-29-2024 Erythrocyte distribution width (RBC) [Ratio] 13.9 % 10.9 - 14.3 % [facility] Hematocrit (Bld) [Volume fraction] 37.1 % Low 39.6 - 48.8 % [facility] Hemoglobin (Bld) [Mass/Vol] 11.8 g/dL Low 13.4 - 16.8 g/dL [facility] Interpretation and review of laboratory results Abnormal [facility] MCH (RBC) [Entitic mass] 25.8 pg Low 26. 1 - 33.3 pg [facility] MCHC (RBC) [Mass/Vol] 31.8 g/dL Low 31.9 - 36.5 g/dL [facility] MCV (RBC) [Entitic vol] 81.2 fL 79.0 - 94.5 fL [facility] Platelet mean volume (Bld) [Entitic vol] 10.9 fL 8.7 - 12.3 fL [facility] Platelets (Bld) [#/Vol] 216 10*3/uL 146 - 337 K/uL [facility] RBC (Bld) [#/Vol] 4.57 10*6/uL [facility] WBC (Bld) [#/Vol] 8 10*3/uL 3.73 - 10. 10 K/uL [facility] Hematocrit (Bld) [Volume fraction] 37.1 % Low 39.6-48.8 [facility] Comment on above: Performed By: #### C HM7 #### [facility] (DEFAULT) [address] [place] [address] Hemoglobin (Bld) [Mass/Vol] 11.8 g/dL Low 13.4-16.8 [facility] Comment on above: Performed By: #### C HM7 #### [facility] (DEFAULT) [address] [place] [address] MCV (RBC) [Entitic vol] 81.2 fL Normal 79.0-94.5 [facility] Comment on above: Performed By: #### C HM7 #### [facility] (DEFAULT) [address] [address] Mean Cell Hgb 25.8 pg Low 26.1-33.3 [facility] Comment on above: Performed By: #### C HM7 #### [facility] (DEFAULT) [address] [address] Mean Cell Hgb Conc 31.8 g/dL Low 31.9-36.5 [facility] Comment on above: Performed By: #### C HM7 #### [facility] (DEFAULT) [address] [place] [address] Platelet mean volume (Bld) [Entitic vol] 10.9 fL Normal 8.7-12.3 [facility] Comment on above: Performed By: #### C HM7 #### [facility] (DEFAULT) [address] [place] [address] Platelets (Bld) [#/Vol] 216 10*3/uL Normal 146-337 [facility] Comment on above: Performed By: #### C HM7 #### [facility] (DEFAULT) [address] [place] [address] RBC (Bld) [#/Vol] 4.57 10*6/uL Normal 4.38-5.83 [facility] Comment on above: Performed By: #### C HM7 #### [facility] (DEFAULT) [address] [place] [address] RBC Distribution 13.9 % Normal 10.9-14.3 [facility] Comment on above: Performed By: #### C HM7 #### [facility] (DEFAULT) [address] [place] [address] WBC (Bld) [#/Vol] 8.00 10*3/uL Normal 3.73-10.10 [facility] Comment on above: Performed By: #### C HM7 #### [facility] (DEFAULT) [address] [place] [address] CHEM 7 (LYTES,BUN,CREA,GLUC) on 10-29-2024 Anion gap [Moles/Vol] 11 mmol/L 7 - 17 mmol/L [facility] Chloride [Moles/Vol] 99 mmol/L 98 - 10 8 mmol/L [facility] CO2 [Moles/Vol] 32 mmol/L High 21 - 31 mmol/L [facility] Creatinine [Mass/Vol] 0.58 mg/dL Low 0.70 - 1.30 mg/dL [facility] eGFR, CKD-EPI, Male - PINF [facility] Glucose [Mass/Vol] 152 mg/dL 70 - 179 mg/dL [facility] Interpretation and review of laboratory results Abnormal [facility] Osmolality Calc [Osmolality] 297 [facility] Potassium [Moles/Vol] 3.9 mmol/L 3.5 - 5.0 mmol/L [facility] Sodium [Moles/Vol] 138 mmol/L 135 - 145 mmol/L [facility] Urea nitrogen [Mass/Vol] 26 mg/dL High 7 - 25 mg/d L [facility] Urea nitrogen/Creatinine [Mass ratio] 45 mg/mg [facility] Anion gap [Moles/Vol] 11 mmol/L Normal 7-17 [facility] Comment on above: Performed By: #### X M #### [facility] (DEFAULT) [address] [place] [address] Chloride [Moles/Vol] 99 mmol/L Normal 98-108 [facility] Comment on above: Performed By: #### X M #### [facility] (DEFAULT) [address] [place] [address] CO2 [Moles/Vol] 32 mmol/L High 21-31 [facility] Comment on above: Performed By: #### X M #### [facility] (DEFAULT) [address] [place] [address] Creatinine [Mass/Vol] 0.58 mg/dL Low 0.70-1.30 [facility] Comment on above: Performed By: #### X M #### [facility] (DEFAULT) [address] [place] [address] eGFR, CKD-EPI, Male > Normal >=60 [facility] Comment on above: Result Comment: Repo rted eGFR is based on the CKD-EPI 2020 equation using creatinine, age, and sex. Performed By: #### X M #### [facility] (DEFAULT) [address] [place] [address] Glucose [Mass/Vol] 152 mg/dL Normal Nonfastin -179 mg/dL; Fastin-99 [facility] Comment on above: Performed By: #### X M #### [facility] (DEFAULT) [address] [place] [address] Osmolality [Osmolality] 297 mosm/kg Normal 278-305 [facility] Comment on above: Performed By: #### X M #### [facility] (DEFAULT) [address] [place] [address] Potassium [Moles/Vol] 3.9 mmol/L Normal 3.5-5.0 [facility] Comment on above: Performed By: #### X M #### [facility] (DEFAULT) [address] [place] [address] Sodium [Moles/Vol] 138 mmol/L Normal 135-145 [facility] Comment on above: Performed By: #### X M #### [facility] (DEFAULT) [address] [place] [address] Urea nitrogen [Mass/Vol] 26 mg/dL High 7-25 [facility] Comment on above: Performed By: #### X M #### [facility] (DEFAULT) [address] [place] [address] Urea nitrogen/Creatinine [Mass ratio] 45 mg/mg Normal [facility] Comment on above: Performed By: #### X M #### [facility] (DEFAULT) [address] [place] [address] GLUCOSE POCon 10-29-2024 Glucose [Mass/Vol] 182 mg/dL High 70 - 179 mg/dL [facility] Interpretation and review of laboratory results Abnormal [facility] POC Sample Type CAPBL [facility] Glucose [Mass/Vol] 191 mg/dL High 70 - 179 mg/dL [facility] Interpretation and review of laboratory results Abnormal [facility] POC Sample Type CAPBL [facility] Glucose [Mass/Vol] 214 mg/dL High 70 - 179 mg/dL [facility] Interpretation and review of laboratory results Abnormal [facility] POC Sample Type [facility] Glucose [Mass/Vol] 145 mg/dL 70 - 179 mg/dL [facility] POC Sample Type CAP[facility] GLUCOSE POCon 10-28-2024 Glucose [Mass/Vol] 168 mg/dL 70 - 179 mg/dL [facility] POC Sample Type [facility] Glucose [Mass/Vol] 165 mg/dL 70 - 179 mg/[facility] POC Sample Type CAPBL [facility] Glucose [Mass/Vol] 218 mg/dL High 70 - 179 mg/dL [facility] Interpretation and review of laboratory results Abnormal [facility] POC Sample Type CAPBL [facility] Glucose [Mass/Vol] 179 mg/dL 70 - 179 mg/[facility] POC Sample Type CAPBL [facility] GLUCOSE POCon 10-27-2024 Glucose [Mass/Vol] 207 mg/dL High 70 - 179 mg/dL [facility] Interpretation and review of laboratory results Abnormal [facility] POC Sample Type CAPBL [facility] Glucose [Mass/Vol] 164 mg/dL 70 - 179 mg/dL [facility] POC Sample Type CAPBL [facility] Glucose [Mass/Vol] 208 mg/dL High 70 - 179 mg/dL [facility] Interpretation and review of laboratory results Abnormal [facility] POC Sample Type [facility] Glucose [Mass/Vol] 193 mg/dL High 70 - 179 mg/dL [facility] Interpretation and review of laboratory results Abnormal [facility] POC Sample Type CAPBL [facility] VANCOMYCIN LEVEL, TROUGH (FL E DRUG LEVEL)on 10-27-2024 Interpretation and review of laboratory results Normal [facility] Vancomycin trough [Mass/Vol] 15.6 ug/mL [facility] Vancomycin, Trough 15.6 mcg/mL Normal Therapeut ic Range: 10.0-20.0 mcg/mL [facility] Comment on above: Order Comment: Pleas e draw level at specified interval PRIOR to next dose. Performed By: #### V ANCTR #### [facility] (DEFAULT) [address] [place] [address] CBC,PLATELETSon 10-26-2024 Erythrocyte distribution width (RBC) [Ratio] 13.5 % 10.9 - 14.3 % [facility] Hematocrit (Bld) [Volume fraction] 37.7 % Low 39.6 - 48.8 % [facility] Hemoglobin (Bld) [Mass/Vol] 12.5 g/dL Low 13.4 - 16.8 g/dL [facility] Interpretation and review of laboratory results Abnormal [facility] MCH (RBC) [Entitic mass] 26.8 pg 26. 1 - 33.3 pg [facility] MCHC (RBC) [Mass/Vol] 33.2 g/dL 31.9 - 36.5 g/dL [facility] MCV (RBC) [Entitic vol] 80.7 fL 79.0 - 94.5 fL [facility] Platelet mean volume (Bld) [Entitic vol] 10.3 fL 8.7 - 12.3 fL [facility] Platelets (Bld) [#/Vol] 229 10*3/uL 146 - 337 K/uL [facility] RBC (Bld) [#/Vol] 4.67 10*6/uL [facility] WBC (Bld) [#/Vol] 8.37 10*3/uL 3.73 - 10. 10 K/uL [facility] Hematocrit (Bld) [Volume fraction] 37.7 % Low 39.6-48.8 [facility] Comment on above: Performed By: #### X M #### [facility] (DEFAULT) [address] [place] [address] Hemoglobin (Bld) [Mass/Vol] 12.5 g/dL Low 13.4-16.8 [facility] Comment on above: Performed By: #### X M #### [facility] (DEFAULT) [address] [place] [address] MCV (RBC) [Entitic vol] 80.7 fL Normal 79.0-94.5 O [facility] Comment on above: Performed By: #### X M #### [facility] (DEFAULT) [address] [place] [address] Mean Cell Hgb 26.8 pg Normal 26.1-33.3 [facility] Comment on above: Performed By: #### X M #### [facility] (DEFAULT) [address] [place] [address] Mean Cell Hgb Conc 33.2 g/dL Normal 31.9-36.5 [facility] Comment on above: Performed By: #### X M #### [facility] (DEFAULT) [address] [place] [address] Platelet mean volume (Bld) [Entitic vol] 10.3 fL Normal 8.7-12.3 [facility] Comment on above: Performed By: #### X M #### [facility] (DEFAULT) [address] [place] [address] Platelets (Bld) [#/Vol] 229 10*3/uL Normal 146-337 [facility] Comment on above: Performed By: #### X M #### [facility] (DEFAULT) [address] [place] [address] RBC (Bld) [#/Vol] 4.67 10*6/uL Normal 4.38-5.83 [facility] Comment on above: Performed By: #### X M #### [facility] (DEFAULT) [address] [place] [address] RBC Distribution 13.5 % Normal 10.9-14.3 [facility] Comment on above: Performed By: #### X M #### [facility] (DEFAULT) [address] [place] [address] WBC (Bld) [#/Vol] 8.37 10*3/uL Normal 3.73-10.10 [facility] Comment on above: Performed By: #### X M #### [facility] (DEFAULT) [address] [place] [address] CHEM 7 (LYTES,BUN,CREA,GLUC) on 10-26-2024 Anion gap [Moles/Vol] 11 mmol/L 7 - 17 mmol/L [facility] Chloride [Moles/Vol] 99 mmol/L 98 - 10 8 mmol/L [facility] CO2 [Moles/Vol] 30 mmol/L 21 - 31 mmol/L [facility] Creatinine [Mass/Vol] 0.63 mg/dL Low 0.70 - 1.30 mg/dL [facility] eGFR, CKD-EPI, Male - PINF [facility] Glucose [Mass/Vol] 189 mg/dL High 70 - 179 mg/dL [facility] Interpretation and review of laboratory results Abnormal [facility] Osmolality Calc [Osmolality] 296 [facility] Potassium [Moles/Vol] 4.3 mmol/L 3.5 - 5.0 mmol/L [facility] Sodium [Moles/Vol] 136 mmol/L 135 - 145 mmol/L [facility] Urea nitrogen [Mass/Vol] 24 mg/dL 7 - 25 mg/d L [facility] Urea nitrogen/Creatinine [Mass ratio] 38 mg/mg [facility] Anion gap [Moles/Vol] 11 mmol/L Normal 7-17 [facility] Comment on above: Performed By: #### C HM7 #### [facility] (DEFAULT) [address] [place] [address] Chloride [Moles/Vol] 99 mmol/L Normal 98-108 [facility] Comment on above: Performed By: #### C HM7 #### [facility] (DEFAULT) [address] [place] [address] CO2 [Moles/Vol] 30 mmol/L Normal 21-31 [facility] Comment on above: Performed By: #### C HM7 #### [facility] (DEFAULT) [address] [place] [address]87 Creatinine [Mass/Vol] 0.63 mg/dL Low 0.70-1.30 [facility] Comment on above: Performed By: #### C HM7 #### [facility] (DEFAULT) [address] [place] [address] 50811 eGFR, CKD-EPI, Male > Normal >=60 [facility] Comment on above: Result Comment: Repo rted eGFR is based on the CKD-EPI 2020 equation using creatinine, age, and sex. Performed By: #### C HM7 #### [facility] (DEFAULT) [address] [place] [address] 86306 Glucose [Mass/Vol] 189 mg/dL High Nonfastin -179 mg/dL; Fastin-99 [facility] Comment on above: Performed By: #### C HM7 #### [facility] (DEFAULT) [address] [place] [address] 15227 Osmolality [Osmolality] 296 mosm/kg Normal 278-305 [facility] Comment on above: Performed By: #### C HM7 #### [facility] (DEFAULT) [address] [place] [address] 04728 Potassium [Moles/Vol] 4.3 mmol/L Normal 3.5-5.0 [facility] Comment on above: Performed By: #### C HM7 #### [facility] (DEFAULT) [address] [place] [address] 02290 Sodium [Moles/Vol] 136 mmol/L Normal 135-145 [facility] Comment on above: Performed By: #### C HM7 #### [facility] (DEFAULT) [address] [place] [address] 56538 Urea nitrogen [Mass/Vol] 24 mg/dL Normal 7-25 [facility] Comment on above: Performed By: #### C HM7 #### [facility] (DEFAULT) [address] [place] [address] Urea nitrogen/Creatinine [Mass ratio] 38 mg/mg Normal [facility] Comment on above: Performed By: #### C HM7 #### [facility] (DEFAULT) [address] [place] [address] CT HEAD WITHOUT CONTRASTon 0 10-26-2024 CT HEAD WITHOUT CONTRAST EXAM: CT HEAD W ITHOUT CONTRAST, 10/26/2024 3:20 AM COMPARISON: CT HEAD WITHOUT CONTRAST October 20, 2024 CLINICAL INDICATIONS: 69 years Male Hemorrhage follow up TECHNIQUE: A series of transaxial computerized tomographic images are obtained from base of skull to vertex without intravenous contrast. Axial whole-head and thin section posterior fossa slices are provided. Reformats: Sagittal and coronal. FINDINGS: Interval decreased density of the hemorrhagic area involving the left temporal and occipital lobes. The extent of the surrounding vasogenic edema appears unchanged. There is associated mass effect with mild effacement of the atrium of the left lateral ventricle. Tiny amount of hyperdense blood products are suspected in the ventricles. No progressive hydrocephalus. No air-fluid level within the paranasal sinuses. No orbital mass is identified. The mastoids are clear. Skull base and calvarium appear intact. IMPRESSION: Interval decreased density of the hemorrhagic area involving the left temporal and occipital lobes. The extent of the surrounding vasogenic edema and the associated mass effect appear unchanged. Normal [facility] CT Head WO contraston 2024 RADIOLOGY RADIOLOGY [facility] Radiology Study observation (narrative) [facility] CT Head WO contrastOrdered B y: Jeremias Christensen on 10-26-2024 [facility] Work Phone: ECGOrdered By: Tressa Cruz ba on 10-26-2024 [facility] Work Phone: GLUCOSE POCon 10-26-2024 Glucose [Mass/Vol] 180 mg/dL High 70 - 179 mg/dL [facility] Interpretation and review of laboratory results Abnormal [facility] POC Sample Type CAPBL [facility] Glucose [Mass/Vol] 167 mg/dL 70 - 179 mg/dL [facility] POC Sample Type CAPBL [facility] Glucose [Mass/Vol] 223 mg/dL High 70 - 179 mg/dL [facility] Interpretation and review of laboratory results Abnormal [facility] POC Sample Type CAPBL [facility] No Panel InformationOrdered By: Unassigned Pacs on 10-26-2024 [facility] Work Phone: CBC,PLATELETSon 10-25-2024 Erythrocyte distribution width (RBC) [Ratio] 13.4 % 10.9 - 14.3 % [facility] Hematocrit (Bld) [Volume fraction] 37.7 % Low 39.6 - 48.8 % [facility] Hemoglobin (Bld) [Mass/Vol] 12.5 g/dL Low 13.4 - 16.8 g/dL [facility] Interpretation and review of laboratory results Abnormal [facility] MCH (RBC) [Entitic mass] 26.4 pg 26. 1 - 33.3 pg [facility] MCHC (RBC) [Mass/Vol] 33.2 g/dL 31.9 - 36.5 g/dL [facility] MCV (RBC) [Entitic vol] 79.7 fL 79.0 - 94.5 fL [facility] Platelet mean volume (Bld) [Entitic vol] 9.7 fL 8.7 - 12.3 fL [facility] Platelets (Bld) [#/Vol] 244 10*3/uL 146 - 337 K/uL [facility] RBC (Bld) [#/Vol] 4.73 10*6/uL [facility] WBC (Bld) [#/Vol] 8.14 10*3/uL 3.73 - 10. 10 K/uL [facility] Hematocrit (Bld) [Volume fraction] 37.7 % Low 39.6-48.8 [facility] Comment on above: Performed By: #### V ANCTR #### [facility] (DEFAULT) [address] [place] [address] 03628 Hemoglobin (Bld) [Mass/Vol] 12.5 g/dL Low 13.4-16.8 [facility] Comment on above: Performed By: #### V ANCTR #### [facility] (DEFAULT) [address] [place] [address] 47185 MCV (RBC) [Entitic vol] 79.7 fL Normal 79.0-94.5 [facility] Comment on above: Performed By: #### V ANCTR #### [facility] (DEFAULT) [address] [place] [address] 73733 Mean Cell Hgb 26.4 pg Normal 26.1-33.3 [facility] Comment on above: Performed By: #### V ANCTR #### [facility] (DEFAULT) [address] [place] [address] 54942 Mean Cell Hgb Conc 33.2 g/dL Normal 31.9-36.5 [facility] Comment on above: Performed By: #### V ANCTR #### [facility] (DEFAULT) [address] [place] [address] 12734 Platelet mean volume (Bld) [Entitic vol] 9.7 fL Normal 8.7-12.3 [facility] Comment on above: Performed By: #### V ANCTR #### [facility] (DEFAULT) [address] [place] [address] 73641 Platelets (Bld) [#/Vol] 244 10*3/uL Normal 146-337 [facility] Comment on above: Performed By: #### V ANCTR #### [facility] (DEFAULT) [address] [place] [address] 40935 RBC (Bld) [#/Vol] 4.73 10*6/uL Normal 4.38-5.83 [facility] Comment on above: Performed By: #### V ANCTR #### [facility] (DEFAULT) [address] [place] [address] 04520 RBC Distribution 13.4 % Normal 10.9-14.3 [facility] Comment on above: Performed By: #### V ANCTR #### [facility] (DEFAULT) [address] [place] [address] 20381 WBC (Bld) [#/Vol] 8.14 10*3/uL Normal 3.73-10.10 [facility] Comment on above: Performed By: #### V ANCTR #### [facility] (DEFAULT) [address] [place] [address] 82259 CHEM 7 (LYTES,BUN,CREA,GLUC) on 10-25-2024 Anion gap [Moles/Vol] 12 mmol/L 7 - 17 mmol/L [facility] Chloride [Moles/Vol] 97 mmol/L Low 98 - 10 8 mmol/L [facility] CO2 [Moles/Vol] 31 mmol/L 21 - 31 mmol/L [facility] Creatinine [Mass/Vol] 0.61 mg/dL Low 0.70 - 1.30 mg/dL [facility] eGFR, CKD-EPI, Male - PINF [facility] Glucose [Mass/Vol] 150 mg/dL 70 - 179 mg/dL [facility] Interpretation and review of laboratory results Abnormal [facility] Osmolality Calc [Osmolality] 291 [facility] Potassium [Moles/Vol] 4 mmol/L 3.5 - 5.0 mmol/L [facility] Sodium [Moles/Vol] 136 mmol/L 135 - 145 mmol/L [facility] Urea nitrogen [Mass/Vol] 20 mg/dL 7 - 25 mg/d L [facility] Urea nitrogen/Creatinine [Mass ratio] 33 mg/mg [facility] Anion gap [Moles/Vol] 12 mmol/L Normal 7-17 [facility] Comment on above: Performed By: #### X M #### [facility] (DEFAULT) [address] [place] [address] 93620 Chloride [Moles/Vol] 97 mmol/L Low 98-108 [facility] Comment on above: Performed By: #### X M #### [facility] (DEFAULT) [address] [place] [address] 40684 CO2 [Moles/Vol] 31 mmol/L Normal 21-31 [facility] Comment on above: Performed By: #### X M #### [facility] (DEFAULT) [address] [place] [address] 85242 Creatinine [Mass/Vol] 0.61 mg/dL Low 0.70-1.30 [facility] Comment on above: Performed By: #### X M #### [facility] (DEFAULT) [address] [place] [address] 86016 eGFR, CKD-EPI, Male > Normal >=60 [facility] Comment on above: Result Comment: Repo rted eGFR is based on the CKD-EPI 2020 equation using creatinine, age, and sex. Performed By: #### X M #### [facility] (DEFAULT) [address] [place] [address] 19620 Glucose [Mass/Vol] 150 mg/dL Normal Nonfastin -179 mg/dL; Fastin-99 [facility] Comment on above: Performed By: #### X M #### [facility] (DEFAULT) [address] [address] Osmolality [Osmolality] 291 mosm/kg Normal 278-305 [facility] Comment on above: Performed By: #### X M #### [facility] (DEFAULT) [address] [place] [address] 15076 Potassium [Moles/Vol] 4.0 mmol/L Normal 3.5-5.0 [facility] Comment on above: Performed By: #### X M #### [facility] (DEFAULT) [address] [place] [address] Sodium [Moles/Vol] 136 mmol/L Normal 135-145 [facility] Comment on above: Performed By: #### X M #### [facility] (DEFAULT) [address] [place] [address] Urea nitrogen [Mass/Vol] 20 mg/dL Normal 7-25 [facility] Comment on above: Performed By: #### X M #### [facility] (DEFAULT) [address] [place] [address] Urea nitrogen/Creatinine [Mass ratio] 33 mg/mg Normal [facility] Comment on above: Performed By: #### X M #### [facility] (DEFAULT) [address] [place] [address] GLUCOSE POCon 10-25-2024 Glucose [Mass/Vol] 181 mg/dL High 70 - 179 mg/dL [facility] Interpretation and review of laboratory results Abnormal [facility] POC Sample Type CAPBL [facility] Glucose [Mass/Vol] 224 mg/dL High 70 - 179 mg/dL [facility] Interpretation and review of laboratory results Abnormal [facility] POC Sample Type [facility] Glucose [Mass/Vol] 202 mg/dL High 70 - 179 mg/dL [facility] Interpretation and review of laboratory results Abnormal [facility] POC Sample Type [facility] Glucose [Mass/Vol] 207 mg/dL High 70 - 179 mg/dL [facility] Interpretation and review of laboratory results Abnormal [facility] POC Sample Type [facility] Glucose [Mass/Vol] 147 mg/dL 70 - 179 mg/dL [facility] POC Sample Type CAPBL [facility] CBC,PLATELETSon 10-24-2024 Erythrocyte distribution width (RBC) [Ratio] 13.2 % 10.9 - 14.3 % [facility] Hematocrit (Bld) [Volume fraction] 38.2 % Low 39.6 - 48.8 % [facility] Hemoglobin (Bld) [Mass/Vol] 12.4 g/dL Low 13.4 - 16.8 g/dL [facility] Interpretation and review of laboratory results Abnormal [facility] MCH (RBC) [Entitic mass] 25.6 pg Low 26. 1 - 33.3 pg [facility] MCHC (RBC) [Mass/Vol] 32.5 g/dL 31.9 - 36.5 g/dL [facility] MCV (RBC) [Entitic vol] 78.8 fL Low 79.0 - 94.5 fL [facility] Platelet mean volume (Bld) [Entitic vol] 10 fL 8.7 - 12.3 fL [facility] Platelets (Bld) [#/Vol] 274 10*3/uL 146 - 337 K/uL [facility] RBC (Bld) [#/Vol] 4.85 10*6/uL [facility] WBC (Bld) [#/Vol] 8.14 10*3/uL 3.73 - 10. 10 K/uL [facility] Hematocrit (Bld) [Volume fraction] 38.2 % Low 39.6-48.8 [facility] Comment on above: Performed By: #### V ANCTR #### [facility] (DEFAULT) [address] [place] [address] Hemoglobin (Bld) [Mass/Vol] 12.4 g/dL Low 13.4-16.8 [facility] Comment on above: Performed By: #### V ANCTR #### [facility] (DEFAULT) [address] [address] MCV (RBC) [Entitic vol] 78.8 fL Low 79.0-94.5 O [facility] Comment on above: Performed By: #### V ANCTR #### [facility] (DEFAULT) [address] [address] Mean Cell Hgb 25.6 pg Low 26.1-33.3 [facility] Comment on above: Performed By: #### V ANCTR #### [facility] (DEFAULT) [address] [address] Mean Cell Hgb Conc 32.5 g/dL Normal 31.9-36.5 [facility] Comment on above: Performed By: #### V ANCTR #### [facility] (DEFAULT) [address] [address] Platelet mean volume (Bld) [Entitic vol] 10.0 fL Normal 8.7-12.3 [facility] Comment on above: Performed By: #### V ANCTR #### [facility] (DEFAULT) [address] [address] Platelets (Bld) [#/Vol] 274 10*3/uL Normal 146-337 [facility] Comment on above: Performed By: #### V ANCTR #### [facility] (DEFAULT) [address] [address] RBC (Bld) [#/Vol] 4.85 10*6/uL Normal 4.38-5.83 [facility] Comment on above: Performed By: #### V ANCTR #### [facility] (DEFAULT) [address] [address] RBC Distribution 13.2 % Normal 10.9-14.3 [facility] Comment on above: Performed By: #### V ANCTR #### [facility] (DEFAULT) [address] [address] WBC (Bld) [#/Vol] 8.14 10*3/uL Normal 3.73-10.10 [facility] Comment on above: Performed By: #### V ANCTR #### [facility] (DEFAULT) [address] [place] [address] 85452 CHEM 7 (LYTES,BUN,CREA,GLUC) on 10-24-2024 Anion gap [Moles/Vol] 11 mmol/L 7 - 17 mmol/L [facility] Chloride [Moles/Vol] 98 mmol/L 98 - 10 8 mmol/L [facility] CO2 [Moles/Vol] 33 mmol/L High 21 - 31 mmol/L [facility] Creatinine [Mass/Vol] 0.57 mg/dL Low 0.70 - 1.30 mg/dL [facility] eGFR, CKD-EPI, Male - PINF [facility] Glucose [Mass/Vol] 160 mg/dL 70 - 179 mg/dL [facility] Interpretation and review of laboratory results Abnormal [facility] Osmolality Calc [Osmolality] 295 [facility] Potassium [Moles/Vol] 4.2 mmol/L 3.5 - 5.0 mmol/L [facility] Sodium [Moles/Vol] 138 mmol/L 135 - 145 mmol/L [facility] Urea nitrogen [Mass/Vol] 18 mg/dL 7 - 25 mg/d L [facility] Urea nitrogen/Creatinine [Mass ratio] 32 mg/mg [facility] Anion gap [Moles/Vol] 11 mmol/L Normal 7-17 [facility] Comment on above: Performed By: #### T YPEC #### [facility] (DEFAULT) [address] [place] [address] 43523 Chloride [Moles/Vol] 98 mmol/L Normal 98-108 [facility] Comment on above: Performed By: #### T YPEC #### [facility] (DEFAULT) [address] [place] [address] CO2 [Moles/Vol] 33 mmol/L High 21-31 [facility] Comment on above: Performed By: #### T YPEC #### [facility] (DEFAULT) [address] [place] [address] 94794 Creatinine [Mass/Vol] 0.57 mg/dL Low 0.70-1.30 [facility] Comment on above: Performed By: #### T YPEC #### [facility] (DEFAULT) [address] [place] [address] 17935 eGFR, CKD-EPI, Male > Normal >=60 [facility] Comment on above: Result Comment: Repo rted eGFR is based on the CKD-EPI 2020 equation using creatinine, age, and sex. Performed By: #### T YPEC #### [facility] (DEFAULT) [address] [place] [address] 44855 Glucose [Mass/Vol] 160 mg/dL Normal Nonfastin -179 mg/dL; Fastin-99 [facility] Comment on above: Performed By: #### T YPEC #### [facility] (DEFAULT) [address] [place] [address] 15220 Osmolality [Osmolality] 295 mosm/kg Normal 278-305 [facility] Comment on above: Performed By: #### T YPEC #### [facility] (DEFAULT) [address] [place] [address] 45183 Potassium [Moles/Vol] 4.2 mmol/L Normal 3.5-5.0 [facility] Comment on above: Performed By: #### T YPEC #### [facility] (DEFAULT) [address] [place] [address] 61059 Sodium [Moles/Vol] 138 mmol/L Normal 135-145 [facility] Comment on above: Performed By: #### T YPEC #### [facility] (DEFAULT) [address] [place] [address] 93485 Urea nitrogen [Mass/Vol] 18 mg/dL Normal 7-25 [facility] Comment on above: Performed By: #### T YPEC #### [facility] (DEFAULT) [address] [place] [address] Urea nitrogen/Creatinine [Mass ratio] 32 mg/mg Normal [facility] Comment on above: Performed By: #### T YPEC #### [facility] (DEFAULT) [address] [place] [address] GLUCOSE POCon 10-24-2024 Glucose [Mass/Vol] 152 mg/dL 70 - 179 mg/dL [facility] POC Sample Type CAPBL [facility] Glucose [Mass/Vol] 173 mg/dL 70 - 179 mg/dL [facility] POC [facility] Glucose [Mass/Vol] 210 mg/dL High 70 - 179 mg/dL [facility] Interpretation and review of laboratory results Abnormal [facility] POC Sample Type [facility] Glucose [Mass/Vol] 168 mg/dL 70 - 179 mg/dL [facility] POC Sample Type [facility] HIGH SENSITIVITY TROPONIN I - SINGLE ORDERon 10-24-2024 Troponin I.cardiac High sensitivity method [Mass/Vol] 4 ng/L NINF - 53 ng/L [facility] hs-Troponin I 4 ng/L Normal <53 [facility] Comment on above: Order Comment: Acute Coronary Syndrome (ACS): Initial Evaluation and Management:[email or web address] Performed By: #### T YPEC #### [facility] (DEFAULT) [address] [place] [address] NT-PRO B-TYPE NATRIURETIC PE PTIDEon 10-24-2024 Natriuretic peptide.B prohormone N-Terminal IA [Mass/Vol] 242 pg/mL NINF - 540 pg/mL [facility] Natriuretic peptide B (Bld) [Mass/Vol] 242 pg/mL Normal <=540 [facility] Comment on above: Performed By: #### Y NTBNP #### [facility] (DEFAULT) [address] [place] [address] No Panel Informationon 10-24 Interpretation and review of laboratory results Normal [facility] Portable XR Chest Viewson RADIOLOGY RADIOLOGY [facility] Radiology Study observation (narrative) [facility] XR CHEST 1 VIEW PORTABLEon 0 10-24-2024 XR CHEST 1 VIEW PORTABLE EXAM: XR CHEST 1 VIEW PORTABLE, 10/24/2024 16:03 PM COMPARISON: Radiograph Dated October 21, 2024 CLINICAL INDICATIONS: SOB RELEVANT CLINICAL HISTORY: FINDINGS: (Adequate technique) Implanted Devices: Stable right-sided PICC Thorax: Resolution of bilateral pleural effusions and bibasilar atelectasis. Lungs are otherwise clear. Stable heart size and mediastinal silhouette. No acute osseous abnormalities. IMPRESSION: Improved bibasilar pleural effusions and associated atelectasis. I personally viewed and interpreted these images and I have reviewed and approved this report. Normal [facility] CBC,PLATELETSon 10-23-2024 Erythrocyte distribution width (RBC) [Ratio] 13.3 % 10.9 - 14.3 % [facility] Hematocrit (Bld) [Volume fraction] 39.2 % Low 39.6 - 48.8 % [facility] Hemoglobin (Bld) [Mass/Vol] 13.1 g/dL Low 13.4 - 16.8 g/dL [facility] Interpretation and review of laboratory results Abnormal [facility] MCH (RBC) [Entitic mass] 26.4 pg 26. 1 - 33.3 pg [facility] MCHC (RBC) [Mass/Vol] 33.4 g/dL 31.9 - 36.5 g/dL [facility] MCV (RBC) [Entitic vol] 79 fL 79.0 - 94.5 fL [facility] Platelet mean volume (Bld) [Entitic vol] 9.4 fL 8.7 - 12.3 fL [facility] Platelets (Bld) [#/Vol] 250 10*3/uL 146 - 337 K/uL [facility] RBC (Bld) [#/Vol] 4.96 10*6/uL [facility] WBC (Bld) [#/Vol] 7.42 10*3/uL 3.73 - 10. 10 K/uL [facility] Hematocrit (Bld) [Volume fraction] 39.2 % Low 39.6-48.8 [facility] Comment on above: Performed By: #### [facility] #### [facility] (DEFAULT) [address] [address] Hemoglobin (Bld) [Mass/Vol] 13.1 g/dL Low 13.4-16.8 [facility] Comment on above: Performed By: #### H EMO #### [facility] (DEFAULT) [address] [place] [address] MCV (RBC) [Entitic vol] 79.0 fL Normal 79.0-94.5 O [facility] Comment on above: Performed By: #### H EMOGC #### [facility] (DEFAULT) [address] [place] [address] 91363 Mean Cell Hgb 26.4 pg Normal 26.1-33.3 [facility] Comment on above: Performed By: #### H EMOGC #### [facility] (DEFAULT) [address] [place] [address] 89[address] Mean Cell Hgb Conc 33.4 g/dL Normal 31.9-36.5 [facility] Comment on above: Performed By: #### H EMOGC #### [facility] (DEFAULT) [address] [place] [address] Platelet mean volume (Bld) [Entitic vol] 9.4 fL Normal 8.7-12.3 [facility] Comment on above: Performed By: #### H EMOGC #### [facility] (DEFAULT) [address] [place] [address] Platelets (Bld) [#/Vol] 250 10*3/uL Normal 146-337 [facility] Comment on above: Performed By: #### H EMOGC #### [facility] (DEFAULT) [address] [place] [address] 52286 RBC (Bld) [#/Vol] 4.96 10*6/uL Normal 4.38-5.83 [facility] Comment on above: Performed By: #### H EMO #### [facility] (DEFAULT) [address] [place] [address] 24965 RBC Distribution 13.3 % Normal 10.9-14.3 [facility] Comment on above: Performed By: #### H EMO #### [facility] (DEFAULT) [address] [place] [address]40 WBC (Bld) [#/Vol] 7.42 10*3/uL Normal 3.73-10.10 [facility] Comment on above: Performed By: #### H EMOGC #### [facility] (DEFAULT) [address] [place] [address] Erythrocyte distribution width (RBC) [Ratio] 13.2 % 10.9 - 14.3 % [facility] Hematocrit (Bld) [Volume fraction] 36.9 % Low 39.6 - 48.8 % [facility] Hemoglobin (Bld) [Mass/Vol] 12.2 g/dL Low 13.4 - 16.8 g/dL [facility] Interpretation and review of laboratory results Abnormal [facility] MCH (RBC) [Entitic mass] 26.7 pg 26. 1 - 33.3 pg [facility] MCHC (RBC) [Mass/Vol] 33.1 g/dL 31.9 - 36.5 g/dL [facility] MCV (RBC) [Entitic vol] 80.7 fL 79.0 - 94.5 fL [facility] Platelet mean volume (Bld) [Entitic vol] 9.6 fL 8.7 - 12.3 fL [facility] Platelets (Bld) [#/Vol] 255 10*3/uL 146 - 337 K/uL [facility] RBC (Bld) [#/Vol] 4.57 10*6/uL [facility] WBC (Bld) [#/Vol] 7.24 10*3/uL 3.73 - 10. 10 K/uL [facility] Hematocrit (Bld) [Volume fraction] 36.9 % Low 39.6-48.8 [facility] Comment on above: Performed By: #### Y NTBNP #### [facility] (DEFAULT) [address] [address] Hemoglobin (Bld) [Mass/Vol] 12.2 g/dL Low 13.4-16.8 [facility] Comment on above: Performed By: #### Y NTBNP #### [facility] (DEFAULT) [address] [address] MCV (RBC) [Entitic vol] 80.7 fL Normal 79.0-94.5 O [facility] Comment on above: Performed By: #### Y NTBNP #### [facility] (DEFAULT) [address] [place] [address] 11726 Mean Cell Hgb 26.7 pg Normal 26.1-33.3 [facility] Comment on above: Performed By: #### Y NTBNP #### [facility] (DEFAULT) [address] [address] Mean Cell Hgb Conc 33.1 g/dL Normal 31.9-36.5 [facility] Comment on above: Performed By: #### Y NTBNP #### [facility] (DEFAULT) [address] [place] [address] 99786 Platelet mean volume (Bld) [Entitic vol] 9.6 fL Normal 8.7-12.3 [facility] Comment on above: Performed By: #### Y NTBNP #### [facility] (DEFAULT) [address] [place] [address]25 Platelets (Bld) [#/Vol] 255 10*3/uL Normal 146-337 [facility] Comment on above: Performed By: #### Y NTBNP #### [facility] (DEFAULT) [address] [place] [address] 28359 RBC (Bld) [#/Vol] 4.57 10*6/uL Normal 4.38-5.83 [facility] Comment on above: Performed By: #### Y NTBNP #### [facility] (DEFAULT) [address] [place] [address] 92710 RBC Distribution 13.2 % Normal 10.9-14.3 [facility] Comment on above: Performed By: #### Y NTBNP #### [facility] (DEFAULT) [address] [place] [address]22 WBC (Bld) [#/Vol] 7.24 10*3/uL Normal 3.73-10.10 [facility] Comment on above: Performed By: #### Y NTBNP #### [facility] (DEFAULT) [address] [place] [address] CHEM 7 (LYTES,BUN,CREA,GLUC) on 10-23-2024 Anion gap [Moles/Vol] 11 mmol/L 7 - 17 mmol/L [facility] Chloride [Moles/Vol] 99 mmol/L 98 - 10 8 mmol/L [facility] CO2 [Moles/Vol] 31 mmol/L 21 - 31 mmol/L [facility] Creatinine [Mass/Vol] 0.56 mg/dL Low 0.70 - 1.30 mg/dL [facility] eGFR, CKD-EPI, Male - PINF [facility] Glucose [Mass/Vol] 171 mg/dL 70 - 179 mg/dL [facility] Interpretation and review of laboratory results Abnormal [facility] Osmolality Calc [Osmolality] 293 [facility] Potassium [Moles/Vol] 4.2 mmol/L 3.5 - 5.0 mmol/L [facility] Sodium [Moles/Vol] 137 mmol/L 135 - 145 mmol/L [facility] Urea nitrogen [Mass/Vol] 16 mg/dL 7 - 25 mg/d L [facility] Urea nitrogen/Creatinine [Mass ratio] 29 mg/mg [facility] Anion gap [Moles/Vol] 11 mmol/L Normal 7-17 [facility] Comment on above: Performed By: #### B LDCULT #### [facility] (DEFAULT) [address] [address] Chloride [Moles/Vol] 99 mmol/L Normal 98-108 [facility] Comment on above: Performed By: #### B LDCULT #### [facility] (DEFAULT) [address] [place] [address]29 CO2 [Moles/Vol] 31 mmol/L Normal 21-31 [facility] Comment on above: Performed By: #### B LDCULT #### [facility] (DEFAULT) [address] [address] Creatinine [Mass/Vol] 0.56 mg/dL Low 0.70-1.30 [facility] Comment on above: Performed By: #### B LDCULT #### [facility] (DEFAULT) [address] [address] eGFR, CKD-EPI, Male > Normal >=60 [facility] Comment on above: Result Comment: Repo rted eGFR is based on the CKD-EPI 2020 equation using creatinine, age, and sex. Performed By: #### B LDCULT #### [facility] (DEFAULT) [address] [place] [address] Glucose [Mass/Vol] 171 mg/dL Normal Nonfastin -179 mg/dL; Fastin-99 [facility] Comment on above: Performed By: #### B LDCULT #### [facility] (DEFAULT) [address] [place] [address] Osmolality [Osmolality] 293 mosm/kg Normal 278-305 [facility] Comment on above: Performed By: #### B LDCULT #### [facility] (DEFAULT) [address] [place] [address] Potassium [Moles/Vol] 4.2 mmol/L Normal 3.5-5.0 [facility] Comment on above: Performed By: #### B LDCULT #### [facility] (DEFAULT) [address] [place] [address] 99270 Sodium [Moles/Vol] 137 mmol/L Normal 135-145 [facility] Comment on above: Performed By: #### B LDCULT #### [facility] (DEFAULT) [address] [place] [address] 36831 Urea nitrogen [Mass/Vol] 16 mg/dL Normal 7-25 [facility] Comment on above: Performed By: #### B LDCULT #### [facility] (DEFAULT) [address] [place] [address] 19376 Urea nitrogen/Creatinine [Mass ratio] 29 mg/mg Normal [facility] Comment on above: Performed By: #### B LDCULT #### [facility] (DEFAULT) [address] [place] [address] 16724 Anion gap [Moles/Vol] 10 mmol/L 7 - 17 mmol/L [facility] Chloride [Moles/Vol] 101 mmol/L 98 - 10 8 mmol/L [facility] CO2 [Moles/Vol] 33 mmol/L High 21 - 31 mmol/L [facility] Creatinine [Mass/Vol] 0.56 mg/dL Low 0.70 - 1.30 mg/dL [facility] eGFR, CKD-EPI, Male - PINF [facility] Glucose [Mass/Vol] 146 mg/dL 70 - 179 mg/dL [facility] Interpretation and review of laboratory results Abnormal [facility] Osmolality Calc [Osmolality] 298 [facility] Potassium [Moles/Vol] 4.2 mmol/L 3.5 - 5.0 mmol/L [facility] Sodium [Moles/Vol] 140 mmol/L 135 - 145 mmol/L [facility] Urea nitrogen [Mass/Vol] 17 mg/dL 7 - 25 mg/d L [facility] Urea nitrogen/Creatinine [Mass ratio] 30 mg/mg [facility] Anion gap [Moles/Vol] 10 mmol/L Normal 7-17 [facility] Comment on above: Performed By: #### T YPEC #### [facility] (DEFAULT) [address] [address] Chloride [Moles/Vol] 101 mmol/L Normal 98-108 [facility] Comment on above: Performed By: #### T YPEC #### [facility] (DEFAULT) [address] [place] [address] CO2 [Moles/Vol] 33 mmol/L High 21-31 [facility] Comment on above: Performed By: #### T YPEC #### [facility] (DEFAULT) [address] [address] Creatinine [Mass/Vol] 0.56 mg/dL Low 0.70-1.30 [facility] Comment on above: Performed By: #### T YPEC #### [facility] (DEFAULT) [address] [address] eGFR, CKD-EPI, Male > Normal >=60 [facility] Comment on above: Result Comment: Repo rted eGFR is based on the CKD-EPI 2020 equation using creatinine, age, and sex. Performed By: #### T YPEC #### [facility] (DEFAULT) [address] [place] [address] Glucose [Mass/Vol] 146 mg/dL Normal Nonfastin -179 mg/dL; Fastin-99 [facility] Comment on above: Performed By: #### T YPEC #### [facility] (DEFAULT) [address] [place] [address] Osmolality [Osmolality] 298 mosm/kg Normal 278-305 [facility] Comment on above: Performed By: #### T YPEC #### [facility] (DEFAULT) [address] [place] [address] Potassium [Moles/Vol] 4.2 mmol/L Normal 3.5-5.0 [facility] Comment on above: Performed By: #### T YPEC #### [facility] (DEFAULT) [address] [place] [address] Sodium [Moles/Vol] 140 mmol/L Normal 135-145 [facility] Comment on above: Performed By: #### T YPEC #### [facility] (DEFAULT) [address] [place] [address] Urea nitrogen [Mass/Vol] 17 mg/dL Normal 7-25 [facility] Comment on above: Performed By: #### T YPEC #### [facility] (DEFAULT) [address] [place] [address] 46643 Urea nitrogen/Creatinine [Mass ratio] 30 mg/mg Normal [facility] Comment on above: Performed By: #### T YPEC #### [facility] (DEFAULT) [address] [place] [address] GLUCOSE POCon 10-23-2024 Glucose [Mass/Vol] 166 mg/dL 70 - 179 mg/dL [facility] POC Sample Type CAPBL [facility] Glucose [Mass/Vol] 189 mg/dL High 70 - 179 mg/dL [facility] Interpretation and review of laboratory results Abnormal [facility] POC Sample Type CAPBL [facility] Glucose [Mass/Vol] 174 mg/dL 70 - 179 mg/dL [facility] POC Sample Type [facility] Glucose [Mass/Vol] 189 mg/dL High 70 - 179 mg/dL [facility] Interpretation and review of laboratory results Abnormal [facility] POC Sample Type CAPBL [facility] Glucose [Mass/Vol] 113 mg/dL 70 - 179 mg/dL [facility] Glucose [Mass/Vol] 171 mg/dL 70 - 179 mg/dL [facility] Glucose [Mass/Vol] 141 mg/dL 70 - 179 mg/dL [facility] POC Sample Type CAPBL [facility] Glucose [Mass/Vol] 183 mg/dL High 70 - 179 mg/dL [facility] Interpretation and review of laboratory results Abnormal [facility] POC Sample Type CAPBL [facility] No Panel Informationon 10-23 [facility] POC Sample Type CAPBL [facility] VANCOMYCIN LEVEL, TROUGH (FL E DRUG LEVEL)on 10-23-2024 Interpretation and review of laboratory results Normal [facility] Vancomycin trough [Mass/Vol] 17.4 ug/mL [facility] Vancomycin, Trough 17.4 mcg/mL Normal Therapeut ic Range: 10.0-20.0 mcg/mL [facility] Comment on above: Order Comment: Pleas e draw level at specified interval PRIOR to next dose. Performed By: #### V ANCTR #### [facility] (DEFAULT) [address] [place] [address] Bacteria identified Cx Nom ( Bld)on 10-22-2024 Bacteria identified Cx Nom (Unsp spec) NO GROWTH DAY 5 OF 5 [facility] Bacteria identified Cx Nom (Unsp spec) NO GROWTH DAY 5 OF 5 [facility] CBC,PLATELETSon 10-22-2024 Erythrocyte distribution width (RBC) [Ratio] 13.2 % 10.9 - 14.3 % [facility] Hematocrit (Bld) [Volume fraction] 36.4 % Low 39.6 - 48.8 % [facility] Hemoglobin (Bld) [Mass/Vol] 11.6 g/dL Low 13.4 - 16.8 g/dL [facility] Interpretation and review of laboratory results Abnormal [facility] MCH (RBC) [Entitic mass] 26 pg Low 26. 1 - 33.3 pg [facility] MCHC (RBC) [Mass/Vol] 31.9 g/dL 31.9 - 36.5 g/dL [facility] MCV (RBC) [Entitic vol] 81.6 fL 79.0 - 94.5 fL [facility] Platelet mean volume (Bld) [Entitic vol] 9.4 fL 8.7 - 12.3 fL [facility] Platelets (Bld) [#/Vol] 236 10*3/uL 146 - 337 K/uL [facility] RBC (Bld) [#/Vol] 4.46 10*6/uL [facility] WBC (Bld) [#/Vol] 6.47 10*3/uL 3.73 - 10. 10 K/uL [facility] Hematocrit (Bld) [Volume fraction] 36.4 % Low 39.6-48.8 [facility] Comment on above: Performed By: #### X M #### [facility] (DEFAULT) [address] [place] [address] Hemoglobin (Bld) [Mass/Vol] 11.6 g/dL Low 13.4-16.8 [facility] Comment on above: Performed By: #### X M #### [facility] (DEFAULT) [address] [address] MCV (RBC) [Entitic vol] 81.6 fL Normal 79.0-94.5 O [facility] Comment on above: Performed By: #### X M #### [facility] (DEFAULT) [address] [address] Mean Cell Hgb 26.0 pg Low 26.1-33.3 [facility] Comment on above: Performed By: #### X M #### [facility] (DEFAULT) [address] [address] Mean Cell Hgb Conc 31.9 g/dL Normal 31.9-36.5 [facility] Comment on above: Performed By: #### X M #### [facility] (DEFAULT) [address] [address] Platelet mean volume (Bld) [Entitic vol] 9.4 fL Normal 8.7-12.3 [facility] Comment on above: Performed By: #### X M #### [facility] (DEFAULT) [address] [address] Platelets (Bld) [#/Vol] 236 10*3/uL Normal 146-337 [facility] Comment on above: Performed By: #### X M #### [facility] (DEFAULT) [address] [address] RBC (Bld) [#/Vol] 4.46 10*6/uL Normal 4.38-5.83 [facility] Comment on above: Performed By: #### X M #### [facility] (DEFAULT) [address] [address] RBC Distribution 13.2 % Normal 10.9-14.3 [facility] Comment on above: Performed By: #### X M #### [facility] (DEFAULT) [address] [place] [address] WBC (Bld) [#/Vol] 6.47 10*3/uL Normal 3.73-10.10 [facility] Comment on above: Performed By: #### X M #### [facility] (DEFAULT) [address] [place] [address] CHEM 7 (LYTES,BUN,CREA,GLUC) on 10-22-2024 Anion gap [Moles/Vol] 8 mmol/L 7 - 17 mmol/L [facility] Chloride [Moles/Vol] 102 mmol/L 98 - 10 8 [facility] CO[facility] [Moles/Vol] 32 mmol/L High 21 - 31 mmol/L [facility] Creatinine [Mass/Vol] 0.56 mg/dL Low 0.70 - 1.30 mg/dL [facility] eGFR, CKD-EPI, Male - PINF [facility] Glucose [Mass/Vol] 138 mg/dL 70 - 179 mg/dL [facility] Interpretation and review of laboratory results Abnormal [facility] Osmolality Calc [Osmolality] 292 [facility] Potassium [Moles/Vol] 4.1 mmol/L 3.5 - 5.0 mmol/L [facility] Sodium [Moles/Vol] 138 mmol/L 135 - 145 mmol/L [facility] Urea nitrogen [Mass/Vol] 15 mg/dL 7 - 25 mg/d L [facility] Urea nitrogen/Creatinine [Mass ratio] 27 mg/mg [facility] Anion gap [Moles/Vol] 8 mmol/L Normal 7-17 [facility] Comment on above: Performed By: #### B LDCULT #### [facility] (DEFAULT) [address] [place] [address] Chloride [Moles/Vol] 102 mmol/L Normal 98-108 [facility] Comment on above: Performed By: #### B LDCULT #### [facility] (DEFAULT) [address] [place] [address] CO2 [Moles/Vol] 32 mmol/L High 21-31 [facility] Comment on above: Performed By: #### B LDCULT #### [facility] (DEFAULT) [address] [place] [address] Creatinine [Mass/Vol] 0.56 mg/dL Low 0.70-1.30 [facility] Comment on above: Performed By: #### B LDCULT #### [facility] (DEFAULT) [address] [place] [address] eGFR, CKD-EPI, Male > Normal >=60 [facility] Comment on above: Result Comment: Repo rted eGFR is based on the CKD-EPI 2020 equation using creatinine, age, and sex. Performed By: #### B LDCULT #### [facility] (DEFAULT) [address] [place] [address] Glucose [Mass/Vol] 138 mg/dL Normal Nonfastin -179 mg/dL; Fastin-99 [facility] Comment on above: Performed By: #### B LDCULT #### [facility] (DEFAULT) [address] [place] [address] Osmolality [Osmolality] 292 mosm/kg Normal 278-305 [facility] Comment on above: Performed By: #### B LDCULT #### [facility] (DEFAULT) [address] [place] [address] Potassium [Moles/Vol] 4.1 mmol/L Normal 3.5-5.0 [facility] Comment on above: Performed By: #### B LDCULT #### [facility] (DEFAULT) [address] [place] [address] Sodium [Moles/Vol] 138 mmol/L Normal 135-145 [facility] Comment on above: Performed By: #### B LDCULT #### [facility] (DEFAULT) [address] [place] [address] Urea nitrogen [Mass/Vol] 15 mg/dL Normal 7-25 [facility] Comment on above: Performed By: #### B LDCULT #### [facility] (DEFAULT) [address] [place] [address] Urea nitrogen/Creatinine [Mass ratio] 27 mg/mg Normal [facility] Comment on above: Performed By: #### B LDCULT #### [facility] (DEFAULT) [address] [place] [address] Culture, Anaerobic Any Sourc devonte 10-22-2024 CUAN NO COLLECTION INFO GIVEN UNK UNK CALCANEAL BONE COLLECTED IN OR No anaerobic bacteria isolated. Normal [facility] Comment on above: Performed By: #### M 100.2000, M100.3000, M100.4001 ####[facility] [id number] [place], [address] ECGOrdered By: Trip page 10-22-2024 [facility] Work Phone: GLUCOSE POCon 10-22-2024 Glucose [Mass/Vol] 184 mg/dL High 70 - 179 mg/dL [facility] Interpretation and review of laboratory results Abnormal [facility] Glucose [Mass/Vol] 166 mg/dL 70 - 179 mg/dL [facility] Glucose [Mass/Vol] 130 mg/dL 70 - 179 mg/dL [facility] Glucose [Mass/Vol] 147 mg/dL 70 - 179 mg/dL [facility] HIGH SENSITIVITY TROPONIN I - SINGLE ORDERon 10-22-2024 Interpretation and review of laboratory results Normal [facility] Troponin I.cardiac High sensitivity method [Mass/Vol] 4 ng/L NINF - 53 ng/L [facility] hs-Troponin I 4 ng/L Normal <53 [facility] Comment on above: Order Comment: 2 Bot tles (1 Set - consists of 1 Aerobic bottle and 1 Anaerobic bottle) - 1st Peripheral Draw For vacutainer method draw: Fill aerobic bottle first, then anaerobic Results may be compromised due to HIGH VOLUME of the BACT\\ALERT bottle EXCEEDING 10mLs, which can be associated with increased contamination. The optimal blood volume is 8-10mLs per aerobic/anaerobic blood culture bottle. Performed By: #### B LDCULT #### [facility] (DEFAULT) [address] [place] [address] IONIZED CALCIUM, SERUMon Calcium.ionized (Bld) [Moles/Vol] 5.26 mg/dL 4.60 - 5.30 mg/dL [facility] Interpretation and review of laboratory results Normal [facility] ICA 5.26 mg/dL Normal 4.60-5.30 [facility] Comment on above: Performed By: #### I CASST ####[facility] (DEFAULT)[address] [place] [address] MAGNESIUMon 10-22-2024 Magnesium [Mass/Vol] 2 mg/dL 1.6 - 2 .6 mg/dL [facility] Magnesium [Mass/Vol] 2.0 mg/dL Normal 1.6-2.6 [facility] Comment on above: Performed By: #### B LDCULT #### [facility] (DEFAULT) [address] [place] [address] No Panel Informationon 10-22 POC Sample Type CAPBL [facility] POC Sample Type CAPBL [facility] Interpretation and review of laboratory results Normal [facility] PHOSPHATE, INORGANICon 10-22 Phosphate [Mass/Vol] 3.3 mg/dL 2.2 - 4 .6 mg/dL [facility] Phosphorous 3.3 mg/dL Normal 2.2-4.6 [facility] Comment on above: Performed By: #### B LDCULT #### [facility] (DEFAULT) [address] [place] [address] VENOUS BLOOD GASon 5 Base excess Calc (Bld) [Moles/Vol] 9 mmol/L High -3.0 - 3.0 mmol/L [facility] CO2 (Bld) [Partial pressure] 53 mm[Hg] High [facility] HCO3 (Bld) [Moles/Vol] 34 mmol/L High 22 - 29 mmol/L [facility] Interpretation and review of laboratory results Abnormal [facility] Oxygen (Bld) [Partial pressure] 54 mm[Hg] mm Hg [facility] Oxygen saturation in Blood 87 % High 70 - 80 % [facility] pH (Bld) 7.41 [pH] 7.32 - 7.43 [facility] Specimen source Nom (Unsp spec) Venous [facility] Base Excess 9.0 mmol/L High -3.0-3.0 [facility] Comment on above: Performed By: #### X M #### [facility] (DEFAULT) [address] [place] [address] HCO3 (Bld) [Moles/Vol] 34 mmol/L High 22-29 [facility] Comment on above: Performed By: #### X M #### [facility] (DEFAULT) [address] [place] [address] Oxygen saturation in Blood 87 % High 70-80 [facility] Comment on above: Performed By: #### X M #### [facility] (DEFAULT) [address] [place] [address] 9[address] pCO2, Venous 53 mm Hg High 36-52 [facility] Comment on above: Performed By: #### X M #### [facility] (DEFAULT) [address] [place] [address]30 pH, Venous 7.41 Normal 7.32-7.43 [facility] Comment on above: Performed By: #### X M #### [facility] (DEFAULT) [address] [place] [address]41 pO2, Venous 54 mm Hg Normal [facility] Comment on above: Result Comment: Veno us pO2 is not recommended for the evaluation of oxygen status, clinical correlation is recommended. Performed By: #### X M #### [facility] (DEFAULT) [address] [place] [address] Specimen type Nom (Spec) Venous Normal [facility] Comment on above: Performed By: #### X M #### [facility] (DEFAULT) [address] [place] [address] ANTI XA LMWH (ENOXAPARIN),*E XACT TIME REQUIRED* 4 HR POSTOrdered By: Helen Morton on 10-21-2024 Interpretation and review of laboratory results Abnormal [facility] LMW Heparin Chromogenic method Qn (PPP) 0.43 Low [facility] ANTI XA LMWH (ENOXAPARIN),*E XACT TIME REQUIRED* 4 HR Janice 10-21-2024 Anti Xa LMWH (Enoxaparin) 4 Hr Post 0.43 Anti-Xa IU/mL Low 0.60-1.00 [facility] Comment on above: Order Comment: For i ndwelling catheters, specimen collection is acceptable on catheter day 1 and 2 only. ? Result Comment: Ther apeutic range applies to 4 hour post dose collections. Performed By: #### U [id number] #### [facility] (DEFAULT) [address] [place] [address] CBC,PLATELETSon 10-21-2024 Erythrocyte distribution width (RBC) [Ratio] 12.9 % 10.9 - 14.3 % [facility] Hematocrit (Bld) [Volume fraction] 34.8 % Low 39.6 - 48.8 % [facility] Hemoglobin (Bld) [Mass/Vol] 10.8 g/dL Low 13.4 - 16.8 g/dL [facility] Interpretation and review of laboratory results Abnormal [facility] MCH (RBC) [Entitic mass] 25.9 pg Low 26. 1 - 33.3 pg [facility] MCHC (RBC) [Mass/Vol] 31 g/dL Low 31.9 - 36.5 g/dL [facility] MCV (RBC) [Entitic vol] 83.5 fL 79.0 - 94.5 fL [facility] Platelet mean volume (Bld) [Entitic vol] 9.7 fL 8.7 - 12.3 fL [facility] Platelets (Bld) [#/Vol] 228 10*3/uL 146 - 337 K/uL [facility] RBC (Bld) [#/Vol] 4.17 10*6/uL Low [facility] WBC (Bld) [#/Vol] 6.63 10*3/uL 3.73 - 10. 10 K/uL [facility] Hematocrit (Bld) [Volume fraction] 34.8 % Low 39.6-48.8 [facility] Comment on above: Performed By: #### C HM7 #### [facility] (DEFAULT) [address] [place] [address] Hemoglobin (Bld) [Mass/Vol] 10.8 g/dL Low 13.4-16.8 [facility] Comment on above: Performed By: #### C HM7 #### [facility] (DEFAULT) [address] [place] [address] MCV (RBC) [Entitic vol] 83.5 fL Normal 79.0-94.5 O [facility] Comment on above: Performed By: #### C HM7 #### [facility] (DEFAULT) [address] [place] [address] Mean Cell Hgb 25.9 pg Low 26.1-33.3 [facility] Comment on above: Performed By: #### C HM7 #### [facility] (DEFAULT) [address] [place] [address] Mean Cell Hgb Conc 31.0 g/dL Low 31.9-36.5 [facility] Comment on above: Performed By: #### C HM7 #### [facility] (DEFAULT) [address] [place] [address] Platelet mean volume (Bld) [Entitic vol] 9.7 fL Normal 8.7-12.3 [facility] Comment on above: Performed By: #### Sara HM7 #### [facility] (DEFAULT) [address] [place] [address] Platelets (Bld) [#/Vol] 228 10*3/uL Normal 146-337 [facility] Comment on above: Performed By: #### Sara HM7 #### [facility] (DEFAULT) [address] [address] RBC (Bld) [#/Vol] 4.17 10*6/uL Low 4.38-5.83 [facility] Comment on above: Performed By: #### Sara HM7 #### [facility] (DEFAULT) [address] [place] [address] RBC Distribution 12.9 % Normal 10.9-14.3 [facility] Comment on above: Performed By: #### C HM7 #### [facility] (DEFAULT) [address] [place] [address] WBC (Bld) [#/Vol] 6.63 10*3/uL Normal 3.73-10.10 [facility] Comment on above: Performed By: #### Sara HM7 #### [facility] (DEFAULT) [address] [address] CHEM 7 (LYTES,BUN,CREA,GLUC) on 10-21-2024 Anion gap [Moles/Vol] 10 mmol/L 7 - 17 mmol/L [facility] Chloride [Moles/Vol] 101 mmol/L 98 - 10 8 mmol/L [facility] CO2 [Moles/Vol] 34 mmol/L High 21 - 31 mmol/L [facility] Creatinine [Mass/Vol] 0.76 mg/dL 0.70 - 1.30 mg/dL [facility] eGFR, CKD-EPI, Male - PINF [facility] Glucose [Mass/Vol] 124 mg/dL 70 - 179 mg/dL [facility] Interpretation and review of laboratory results Abnormal [facility] Osmolality Calc [Osmolality] 298 [facility] Potassium [Moles/Vol] 4.1 mmol/L 3.5 - 5.0 mmol/L [facility] Sodium [Moles/Vol] 141 mmol/L 135 - 145 mmol/L [facility] Urea nitrogen [Mass/Vol] 16 mg/dL 7 - 25 mg/d L [facility] Urea nitrogen/Creatinine [Mass ratio] 21 mg/mg [facility] Anion gap [Moles/Vol] 10 mmol/L Normal 7-17 [facility] Comment on above: Performed By: #### Y NTBNP #### [facility] (DEFAULT) [address] [address] Chloride [Moles/Vol] 101 mmol/L Normal 98-108 [facility] Comment on above: Performed By: #### Y NTBNP #### [facility] (DEFAULT) [address] [address] CO2 [Moles/Vol] 34 mmol/L High 21-31 [facility] Comment on above: Performed By: #### Y NTBNP #### [facility] (DEFAULT) [address] [address] Creatinine [Mass/Vol] 0.76 mg/dL Normal 0.70-1.30 [facility] Comment on above: Performed By: #### Y NTBNP #### [facility] (DEFAULT) [address] [address] eGFR, CKD-EPI, Male > Normal >=60 [facility] Comment on above: Result Comment: Repo rted eGFR is based on the CKD-EPI 2020 equation using creatinine, age, and sex. Performed By: #### Y NTBNP #### [facility] (DEFAULT) [address] [place] [address] Glucose [Mass/Vol] 124 mg/dL Normal Nonfastin -179 mg/dL; Fastin-99 [facility] Comment on above: Performed By: #### Y NTBNP #### [facility] (DEFAULT) [address] [place] [address] Osmolality [Osmolality] 298 mosm/kg Normal 278-305 [facility] Comment on above: Performed By: #### Y NTBNP #### [facility] (DEFAULT) [address] [place] [address] Potassium [Moles/Vol] 4.1 mmol/L Normal 3.5-5.0 [facility] Comment on above: Performed By: #### Y NTBNP #### [facility] (DEFAULT) [address] [place] [address] Sodium [Moles/Vol] 141 mmol/L Normal 135-145 [facility] Comment on above: Performed By: #### Y NTBNP #### [facility] (DEFAULT) [address] [place] [address] Urea nitrogen [Mass/Vol] 16 mg/dL Normal 7-25 [facility] Comment on above: Performed By: #### Y NTBNP #### [facility] (DEFAULT) [address] [place] [address] Urea nitrogen/Creatinine [Mass ratio] 21 mg/mg Normal [facility] Comment on above: Performed By: #### Y NTBNP #### [facility] (DEFAULT) [address] [place] [address] CYSTATIN C AND CREATININE WI ESTIMATED GFRon 10-21-2024 Creatinine [Mass/Vol] 0.65 mg/dL Low 0.70 - 1.30 mg/dL [facility] Cystatin C 1.8 mg/L High 0.51 - 1.05 mg/L [facility] EGFR BY CYS C AND CREATININE, MALE 57 Low - PINF [facility] Interpretation and review of laboratory results Abnormal [facility] Creatinine [Mass/Vol] 0.65 mg/dL Low 0.70-1.30 [facility] Comment on above: Performed By: #### C HM7 #### [facility] (DEFAULT) [address] [place] [address] Cystatin C 1.80 mg/L High 0.51-1.05 [facility] Comment on above: Performed By: #### C HM7 #### [facility] (DEFAULT) [address] [place] [address] EGFR BY CYS C AND CREATININE, MALE 57 mL/min/1.73m2 Low >=60 [facility] Comment on above: Result Comment: Repo rted eGFR is based on the CKD-EPI 2020 equation using cystatin C, creatinine, age, and sex. Performed By: #### C HM7 #### [facility] (DEFAULT) [address] [place] [address] GLUCOSE POCon 10-21-2024 Glucose [Mass/Vol] 184 mg/dL High 70 - 179 mg/dL [facility] Glucose [Mass/Vol] 158 mg/dL 70 - 179 mg/dL [facility] Interpretation and review of laboratory results Abnormal [facility] POC Sample Type ARTER [facility] IONIZED CALCIUM, SERUMOrdere d By: Yahir Patton on 10-21-2024 Calcium.ionized (Bld) [Moles/Vol] 5.01 mg/dL 4.60 - 5.30 mg/dL [facility] Interpretation and review of laboratory results Normal [facility] IONIZED CALCIUM, SERUMon ICA 5.01 mg/dL Normal 4.60-5.30 [facility] Comment on above: Performed By: #### C HM7 #### [facility] (DEFAULT) [address] [place] [address] Laboratory - Chemistry and C hemistry - challengeon 10-21-2024 Glucose [Mass/Vol] 134 mg/dL 70 - 179 mg/dL [facility] MAGNESIUMon 10-21-2024 Magnesium [Mass/Vol] 2 mg/dL 1.6 - 2 .6 mg/dL [facility] Magnesium [Mass/Vol] 2.0 mg/dL Normal 1.6-2.6 [facility] Comment on above: Performed By: #### Y NTBNP #### [facility] (DEFAULT) [address] [address] MR Brain WO contraston 10-21 RADIOLOGY RADIOLOGY [facility] Radiology Study observation (narrative) [facility] MR Brain WO contrastOrdered By: Lawrence Cruz on 10-21-2024 [facility] Work Phone: MRI BRAIN WITHOUT CONTRASTon 10-21-2024 MRI BRAIN WITHOUT CONTRAST EXAM: MRI BRAIN WITHOUT CONTRAST, 10/21/2024 15:49 PM COMPARISON: CT HEAD WITHOUT CONTRAST October 20, 2024 CLINICAL INDICATIONS: 69 years Male CVA TECHNIQUE: A series of multisequence, multiplanar images of the brain are obtained without intravenous contrast. Study was performed at 1.5 Angela. FINDINGS: Grossly stable size of the multifocal parenchymal hemorrhages centered at the left temporooccipital junction, allowing for differences in modality. Stable extent of vasogenic or cytotoxic edema surrounding the hemorrhages. Similar local mass effect with sulcal effacement in the posterior left cerebral hemisphere, deformity of the posterior left lateral ventricle, and minimal rightward midline shift. Stable small volume of intraventricular extension of hemorrhage. No extracerebral collection. Sellar and parasellar structures are unremarkable. Posterior fossa is unremarkable. Ventricles are stable in size. No hydrocephalus. Paranasal sinuses and mastoid air cells are largely clear. Orbital contents are unremarkable. IMPRESSION: Grossly stable parenchymal hemorrhage with surrounding edema centered in the left temporooccipital region, which could relate to hemorrhagic transformation of recent left MEASUREMENT PSYCHOLOGIST territory infarct. No progressive mass effect. Stable small volume of intraventricular extension of hemorrhage. Normal [facility] No Panel Informationon 10-21 POC Sample Type CAPBL [facility] Interpretation and review of laboratory results Normal [facility] PHOSPHATE, INORGANICon 10-21 Phosphate [Mass/Vol] 3.2 mg/dL 2.2 - 4 .6 mg/dL [facility] Phosphorous 3.2 mg/dL Normal 2.2-4.6 [facility] Comment on above: Performed By: #### Y NTBNP #### [facility] (DEFAULT) [id number] Portable XR Chest Viewson RADIOLOGY RADIOLOGY [facility] Radiology Study observation (narrative) [facility] Portable XR Chest ViewsOrder ed By: Tonio Yancey on 10-21-2024 [facility] VANCOMYCIN LEVEL, TROUGH (FL E DRUG LEVEL)on 10-21-2024 Interpretation and review of laboratory results Normal [facility] Vancomycin trough [Mass/Vol] 18.3 ug/mL [facility] Vancomycin, Trough 18.3 mcg/mL Normal Therapeut ic Range: 10.0-20.0 mcg/mL [facility] Comment on above: Order Comment: Pleas e draw level at specified interval PRIOR to next dose. Please hold the dose if level > 20 Performed By: #### X M #### [facility] (DEFAULT) [address] [place] [address] XR CHEST 1 VIEW PORTABLEon 0 10-21-2024 XR CHEST 1 VIEW PORTABLE EXAM: XR CHEST 1 VIEW PORTABLE, 10/21/2024 08:42 AM COMPARISON: October 20, 2024, October 19, 2024 CLINICAL INDICATIONS: interval pulmonary edema follow up RELEVANT CLINICAL HISTORY: FINDINGS: (Monitor leads overlie the chest. Opacification in lung bases persist, suggesting effusions and atelectasis. Right upper extremity PICC line appears stable.. Cardiac silhouette appears stable. IMPRESSION: Persistent opacification in the lung bases obscuring the hemidiaphragms consistent with small effusions and atelectasis. Normal [facility] CBC,PLATELETSon 10-20-2024 Erythrocyte distribution width (RBC) [Ratio] 13 % 10.9 - 14.3 % [facility] Hematocrit (Bld) [Volume fraction] 34.2 % Low 39.6 - 48.8 % [facility] Hemoglobin (Bld) [Mass/Vol] 10.7 g/dL Low 13.4 - 16.8 g/dL [facility] Interpretation and review of laboratory results Abnormal [facility] MCH (RBC) [Entitic mass] 26.1 pg 26. 1 - 33.3 pg [facility] MCHC (RBC) [Mass/Vol] 31.3 g/dL Low 31.9 - 36.5 g/dL [facility] MCV (RBC) [Entitic vol] 83.4 fL 79.0 - 94.5 fL [facility] Platelet mean volume (Bld) [Entitic vol] 9.4 fL 8.7 - 12.3 fL [facility] Platelets (Bld) [#/Vol] 235 10*3/uL 146 - 337 K/uL [facility] RBC (Bld) [#/Vol] 4.1 10*6/uL Low [facility] WBC (Bld) [#/Vol] 6.78 10*3/uL 3.73 - 10. 10 K/uL [facility] Hematocrit (Bld) [Volume fraction] 34.2 % Low 39.6-48.8 [facility] Comment on above: Performed By: #### T YPEC #### [facility] (DEFAULT) [address] [address] Hemoglobin (Bld) [Mass/Vol] 10.7 g/dL Low 13.4-16.8 [facility] Comment on above: Performed By: #### T YPEC #### [facility] (DEFAULT) [address] [place] [address] MCV (RBC) [Entitic vol] 83.4 fL Normal 79.0-94.5 O [facility] Comment on above: Performed By: #### T YPEC #### [facility] (DEFAULT) [address] [address] Mean Cell Hgb 26.1 pg Normal 26.1-33.3 [facility] Comment on above: Performed By: #### T YPEC #### [facility] (DEFAULT) [address] [address] Mean Cell Hgb Conc 31.3 g/dL Low 31.9-36.5 [facility] Comment on above: Performed By: #### T YPEC #### [facility] (DEFAULT) [address] [address] Platelet mean volume (Bld) [Entitic vol] 9.4 fL Normal 8.7-12.3 [facility] Comment on above: Performed By: #### T YPEC #### [facility] (DEFAULT) [address] [address] Platelets (Bld) [#/Vol] 235 10*3/uL Normal 146-337 [facility] Comment on above: Performed By: #### T YPEC #### [facility] (DEFAULT) [address] [address] RBC (Bld) [#/Vol] 4.10 10*6/uL Low 4.38-5.83 [facility] Comment on above: Performed By: #### T YPEC #### [facility] (DEFAULT) [address] [address] RBC Distribution 13.0 % Normal 10.9-14.3 [facility] Comment on above: Performed By: #### T YPEC #### [facility] (DEFAULT) [address] [place] [address] WBC (Bld) [#/Vol] 6.78 10*3/uL Normal 3.73-10.10 [facility] Comment on above: Performed By: #### T YPEC #### [facility] (DEFAULT) [address] [place] [address] CHEM 7 (LYTES,BUN,CREA,GLUC) on 10-20-2024 Anion gap [Moles/Vol] 9 mmol/L 7 - 17 mmol/L [facility] Chloride [Moles/Vol] 102 mmol/L 98 - 10 8 mmol/L [facility] CO2 [Moles/Vol] 36 mmol/L High 21 - 31 mmol/L [facility] Creatinine [Mass/Vol] 0.67 mg/dL Low 0.70 - 1.30 mg/dL [facility] eGFR, CKD-EPI, Male - PINF [facility] Glucose [Mass/Vol] 162 mg/dL 70 - 179 mg/dL [facility] Interpretation and review of laboratory results Abnormal [facility] Osmolality Calc [Osmolality] 304 [facility] Potassium [Moles/Vol] 4.1 mmol/L 3.5 - 5.0 mmol/L [facility] Sodium [Moles/Vol] 143 mmol/L 135 - 145 mmol/L [facility] Urea nitrogen [Mass/Vol] 16 mg/dL 7 - 25 mg/d L [facility] Urea nitrogen/Creatinine [Mass ratio] 24 mg/mg [facility] Anion gap [Moles/Vol] 9 mmol/L Normal 7-17 [facility] Comment on above: Performed By: #### T YPEC #### [facility] (DEFAULT) [address] [place] [address] Chloride [Moles/Vol] 102 mmol/L Normal 98-108 [facility] Comment on above: Performed By: #### T YPEC #### [facility] (DEFAULT) [address] [place] [address] CO2 [Moles/Vol] 36 mmol/L High 21-31 [facility] Comment on above: Performed By: #### T YPEC #### [facility] (DEFAULT) [address] [place] [address] Creatinine [Mass/Vol] 0.67 mg/dL Low 0.70-1.30 [facility] Comment on above: Performed By: #### T YPEC #### [facility] (DEFAULT) [address] [place] [address] eGFR, CKD-EPI, Male > Normal >=60 [facility] Comment on above: Result Comment: Repo rted eGFR is based on the CKD-EPI 2020 equation using creatinine, age, and sex. Performed By: #### T YPEC #### [facility] (DEFAULT) [address] [place] [address] Glucose [Mass/Vol] 162 mg/dL Normal Nonfastin -179 mg/dL; Fastin-99 [facility] Comment on above: Performed By: #### T YPEC #### [facility] (DEFAULT) [address] [place] [address] Osmolality [Osmolality] 304 mosm/kg Normal 278-305 [facility] Comment on above: Performed By: #### T YPEC #### [facility] (DEFAULT) [address] [place] [address] Potassium [Moles/Vol] 4.1 mmol/L Normal 3.5-5.0 [facility] Comment on above: Performed By: #### T YPEC #### [facility] (DEFAULT) [address] [place] [address] Sodium [Moles/Vol] 143 mmol/L Normal 135-145 [facility] Comment on above: Performed By: #### T YPEC #### [facility] (DEFAULT) [address] [place] [address] Urea nitrogen [Mass/Vol] 16 mg/dL Normal 7-25 [facility] Comment on above: Performed By: #### T YPEC #### [facility] (DEFAULT) [address] [place] [address] Urea nitrogen/Creatinine [Mass ratio] 24 mg/mg Normal [facility] Comment on above: Performed By: #### T YPEC #### [facility] (DEFAULT) [address] [place] [address] Anion gap [Moles/Vol] 10 mmol/L 7 - 17 mmol/L [facility] Chloride [Moles/Vol] 99 mmol/L 98 - 10 8 mmol/L [facility] CO2 [Moles/Vol] 35 mmol/L High 21 - 31 mmol/L [facility] Creatinine [Mass/Vol] 0.66 mg/dL Low 0.70 - 1.30 mg/dL [facility] eGFR, CKD-EPI, Male - PINF [facility] Glucose [Mass/Vol] 136 mg/dL 70 - 179 mg/dL [facility] Interpretation and review of laboratory results Abnormal [facility] Osmolality Calc [Osmolality] 296 [facility] Potassium [Moles/Vol] 4 mmol/L 3.5 - 5.0 mmol/L [facility] Sodium [Moles/Vol] 140 mmol/L 135 - 145 mmol/L [facility] Urea nitrogen [Mass/Vol] 16 mg/dL 7 - 25 mg/d L [facility] Urea nitrogen/Creatinine [Mass ratio] 24 mg/mg [facility] Anion gap [Moles/Vol] 10 mmol/L Normal 7-17 [facility] Comment on above: Performed By: #### U [id number] #### [facility] (DEFAULT) [address] [place] [address] Chloride [Moles/Vol] 99 mmol/L Normal 98-108 [facility] Comment on above: Performed By: #### U [id number] #### [facility] (DEFAULT) [address] [place] [address] CO2 [Moles/Vol] 35 mmol/L High 21-31 [facility] Comment on above: Performed By: #### U [id number] #### [facility] (DEFAULT) [address] [place] [address] Creatinine [Mass/Vol] 0.66 mg/dL Low 0.70-1.30 [facility] Comment on above: Performed By: #### U [id number] #### [facility] (DEFAULT) [address] [place] [address] 21767 eGFR, CKD-EPI, Male > Normal >=60 [facility] Comment on above: Result Comment: Repo rted eGFR is based on the CKD-EPI 2020 equation using creatinine, age, and sex. Performed By: #### U [id number] #### [facility] (DEFAULT) [address] [place] [address] Glucose [Mass/Vol] 136 mg/dL Normal Nonfastin -179 mg/dL; Fastin-99 [facility] Comment on above: Performed By: #### U [id number] #### [facility] (DEFAULT) [address] [place] [address] Osmolality [Osmolality] 296 mosm/kg Normal 278-305 [facility] Comment on above: Performed By: #### U [id number] #### [facility] (DEFAULT) [address] [place] [address] Potassium [Moles/Vol] 4.0 mmol/L Normal 3.5-5.0 [facility] Comment on above: Performed By: #### U [id number] #### [facility] (DEFAULT) [address] [place] [address] 32266 Sodium [Moles/Vol] 140 mmol/L Normal 135-145 [facility] Comment on above: Performed By: #### U [id number] #### [facility] (DEFAULT) [address] [place] [address] Urea nitrogen [Mass/Vol] 16 mg/dL Normal 7-25 [facility] Comment on above: Performed By: #### U [id number] #### [facility] (DEFAULT) [address] [place] [address] Urea nitrogen/Creatinine [Mass ratio] 24 mg/mg Normal [facility] Comment on above: Performed By: #### U [id number] #### [facility] (DEFAULT) [address] [place] [address] Anion gap [Moles/Vol] 8 mmol/L 7 - 17 mmol/L [facility] Chloride [Moles/Vol] 99 mmol/L 98 - 10 8 mmol/L [facility] CO2 [Moles/Vol] 39 mmol/L High 21 - 31 mmol/L [facility] Creatinine [Mass/Vol] 0.66 mg/dL Low 0.70 - 1.30 mg/dL [facility] eGFR, CKD-EPI, Male - PINF [facility] Glucose [Mass/Vol] 143 mg/dL 70 - 179 mg/dL [facility] Interpretation and review of laboratory results Abnormal [facility] Osmolality Calc [Osmolality] 300 [facility] Potassium [Moles/Vol] 3.8 mmol/L 3.5 - 5.0 mmol/L [facility] Sodium [Moles/Vol] 142 mmol/L 135 - 145 mmol/L [facility] Urea nitrogen [Mass/Vol] 16 mg/dL 7 - 25 mg/d L [facility] Urea nitrogen/Creatinine [Mass ratio] 24 mg/mg [facility] Anion gap [Moles/Vol] 8 mmol/L Normal 7-17 [facility] Comment on above: Performed By: #### V ANCTR #### [facility] (DEFAULT) [address] [place] [address] Chloride [Moles/Vol] 99 mmol/L Normal 98-108 [facility] Comment on above: Performed By: #### V ANCTR #### [facility] (DEFAULT) [address] [place] [address] CO2 [Moles/Vol] 39 mmol/L High 21-31 [facility] Comment on above: Performed By: #### V ANCTR #### [facility] (DEFAULT) [address] [place] [address] Creatinine [Mass/Vol] 0.66 mg/dL Low 0.70-1.30 [facility] Comment on above: Performed By: #### V ANCTR #### [facility] (DEFAULT) [address] [place] [address]503 eGFR, CKD-EPI, Male > Normal >=60 [facility] Comment on above: Result Comment: Repo rted eGFR is based on the CKD-EPI 2020 equation using creatinine, age, and sex. Performed By: #### V ANCTR #### [facility] (DEFAULT) [address] [address] Glucose [Mass/Vol] 143 mg/dL Normal Nonfastin -179 mg/dL; Fastin-99 [facility] Comment on above: Performed By: #### V ANCTR #### [facility] (DEFAULT) [address] [address] Osmolality [Osmolality] 300 mosm/kg Normal 278-305 [facility] Comment on above: Performed By: #### V ANCTR #### [facility] (DEFAULT) [address] [place] [address] Potassium [Moles/Vol] 3.8 mmol/L Normal 3.5-5.0 [facility] Comment on above: Performed By: #### V ANCTR #### [facility] (DEFAULT) [address] [address] Sodium [Moles/Vol] 142 mmol/L Normal 135-145 [facility] Comment on above: Performed By: #### V ANCTR #### [facility] (DEFAULT) [address] [place] [address] 93489 Urea nitrogen [Mass/Vol] 16 mg/dL Normal 7-25 [facility] Comment on above: Performed By: #### V ANCTR #### [facility] (DEFAULT) [address] [place] [address] Urea nitrogen/Creatinine [Mass ratio] 24 mg/mg Normal [facility] Comment on above: Performed By: #### V ANCTR #### [facility] (DEFAULT) [address] [place] [address] CT HEAD WITHOUT CONTRASTon 0 10-20-2024 CT HEAD WITHOUT CONTRAST EXAM: CT HEAD W ITHOUT CONTRAST, 10/20/2024 1:29 AM COMPARISON: CT HEAD WITHOUT CONTRAST October 18, 2024 CLINICAL INDICATIONS: 69 years Male stability RELEVANT CLINICAL HISTORY: TECHNIQUE: A series of transaxial computerized tomographic images are obtained from base of skull to vertex without intravenous contrast. Axial whole-head and thin section posterior fossa slices are provided. Reformats: Sagittal and coronal. FINDINGS: Parenchymal hematoma in the left temporooccipital region is unchanged. There is mild mass effect on the left temporal and occipital lobe. Extension into the ventricular system again noted. Midline shift appears to have decreased from 3 mm to closer to 1 to 2 mm. Similar vasogenic or cytotoxic edema in the brain parenchyma surrounding the hemorrhage. There is no significant midline shift. The extension into the ventricular system is unchanged and there is no hydrocephalus. Skull appears intact. Visualized orbits appear normal. Visualized paranasal sinuses are clear. Chronic right maxillary sinusitis with cirrhosis thickening of the sinus wall. Visualized mastoid air cells are clear. Atherosclerotic calcifications of the major arteries at the skull base are noted. IMPRESSION: Unchanged hematoma with surrounding edema in the left temporooccipital region. No increasing mass effect or midline shift. Normal [facility] CT Head WO contraston 2024 RADIOLOGY RADIOLOGY [facility] Radiology Study observation (narrative) [facility] CT Head WO contrastOrdered B y: Saqib Irby on 10-20-2024 [facility] Work Phone: IONIZED CALCIUM, SERUMOrdere d By: Anitra Carlos on 10-20-2024 Calcium.ionized (Bld) [Moles/Vol] 4.85 mg/dL 4.60 - 5.30 mg/dL [facility] Interpretation and review of laboratory results Normal [facility] IONIZED CALCIUM, SERUMon ICA 4.85 mg/dL Normal 4.60-5.30 [facility] Comment on above: Performed By: #### T YPEC #### [facility] (DEFAULT) [address] [place] [address] MAGNESIUMon 10-20-2024 Magnesium [Mass/Vol] 1.8 mg/dL 1.6 - 2 .6 mg/dL [facility] Magnesium [Mass/Vol] 1.8 mg/dL Normal 1.6-2.6 [facility] Comment on above: Performed By: #### V ANCTR #### [facility] (DEFAULT) [address] [place] [address] No Panel Informationon 10-20 Interpretation and review of laboratory results Normal [facility] PHOSPHATE, INORGANICon 10-20 Phosphate [Mass/Vol] 3.3 mg/dL 2.2 - 4 .6 mg/dL [facility] Phosphorous 3.3 mg/dL Normal 2.2-4.6 [facility] Comment on above: Performed By: #### V ANCTR #### [facility] (DEFAULT) [address] [place], [place] [id number] Portable XR Chest Viewson RADIOLOGY RADIOLOGY [facility] Radiology Study observation (narrative) [facility] Portable XR Chest ViewsOrder ed By: Beni Rivera on 10-20-2024 [facility] Work Phone: VANCOMYCIN LEVEL, TROUGH (FL E DRUG LEVEL)on 10-20-2024 Interpretation and review of laboratory results Abnormal [facility] Vancomycin trough [Mass/Vol] 20.1 ug/mL High [facility] Vancomycin, Trough 20.1 mcg/mL High Therapeut ic Range: 10.0-20.0 mcg/mL [facility] Comment on above: Order Comment: Pleas e draw level at specified interval PRIOR to next dose. Please hold next dose if level > 20 Performed By: #### X M #### [facility] (DEFAULT) [address] [place] [address] XR CHEST 1 VIEW PORTABLEon 0 10-20-2024 XR CHEST 1 VIEW PORTABLE EXAM: XR CHEST 1 VIEW PORTABLE, 10/20/2024 12:09 PM CLINICAL INDICATIONS: Pulm edema RELEVANT CLINICAL HISTORY: COMPARISON: XR CHEST 1 VIEW PORTABLE October 19, 2024 FINDINGS: Unchanged right PICC. No pneumothorax Cardiomegaly. Pulmonary vascular engorgement. No true septal lines to indicate edema. Right greater than left pleural effusions with associated volume loss, similar to the previous study. Degenerative change thoracic spine. IMPRESSION: No appreciable change since the prior study. Normal [facility] ANTI XA LMWH (ENOXAPARIN),*E XACT TIME REQUIRED* 4 HR POSTOrdered By: Sally Zaragoza on 10-19-2024 Interpretation and review of laboratory results Abnormal [facility] LMW Heparin Chromogenic method Qn (PPP) 0.41 Low [facility] ANTI XA LMWH (ENOXAPARIN),*E XACT TIME REQUIRED* 4 HR Janice 10-19-2024 Anti Xa LMWH (Enoxaparin) 4 Hr Post 0.41 Anti-Xa IU/mL Low 0.60-1.00 [facility] Comment on above: Order Comment: Pleas e draw level at specified interval PRIOR to next dose. Result Comment: Ther apeutic range applies to 4 hour post dose collections. Performed By: #### V ANCTR #### [facility] (DEFAULT) [address] [place] [address] ARTERIAL BLOOD GASon 025 Base excess Calc (Bld) [Moles/Vol] 18.6 mmol/L High -3.0 - 3.0 mmol/L [facility] CO2 (Bld) [Partial pressure] 63 mm[Hg] High [facility] HCO3 (Bld) [Moles/Vol] 43 mmol/L High 22 - 28 mmol/L [facility] Interpretation and review of laboratory results Abnormal [facility] Oxygen (Bld) [Partial pressure] 78 mm[Hg] Low [facility] Oxygen saturation in Blood 98 % 94 - 98 % [facility] pH (Bld) 7.44 [pH] 7.35 - 7.45 [facility] Specimen source Nom (Unsp spec) Arterial [facility] Base Excess 18.6 mmol/L High -3.0-3.0 [facility] Comment on above: Performed By: #### X M #### [facility] (DEFAULT) [address] [address] HCO3 (Bld) [Moles/Vol] 43 mmol/L High 22-28 [facility] Comment on above: Performed By: #### X M #### [facility] (DEFAULT) [address] [address] Oxygen saturation in Blood 98 % Normal 94-98 [facility] Comment on above: Performed By: #### X M #### [facility] (DEFAULT) [address] [address] pCO2 63 mm Hg High 32-48 [facility] Comment on above: Performed By: #### X M #### [facility] (DEFAULT) [address] [place] [address] pH, Arterial 7.44 Normal 7.35-7.45 [facility] Comment on above: Performed By: #### X M #### [facility] (DEFAULT) [address] [address] pO2 78 mm Hg Low 83-108 [facility] Comment on above: Performed By: #### X M #### [facility] (DEFAULT) [address] [place] [address] Specimen type Nom (Spec) Arterial Normal [facility] Comment on above: Performed By: #### X M #### [facility] (DEFAULT) [address] [place] [address] Base excess Calc (Bld) [Moles/Vol] 13.6 mmol/L High -3.0 - 3.0 mmol/L [facility] CO2 (Bld) [Partial pressure] 62 mm[Hg] [facility] HCO3 (Bld) [Moles/Vol] 38 mmol/L High 22 - 28 mmol/L [facility] Inhaled oxygen concentration [facility] Interpretation and review of laboratory results Abnormal [facility] Oxygen (Bld) [Partial pressure] 75 mm[Hg] Low [facility] Oxygen saturation in Blood 97 % 94 - 98 % [facility] pH (Bld) 7.4 [pH] 7.35 - 7.45 [facility] Specimen source Nom (Unsp spec) [facility] Base Excess 13.6 mmol/L High -3.0-3.0 [facility] Comment on above: Performed By: #### G AS5 #### [facility] (DEFAULT) [address] [place] [address] FIO2 Normal [facility] Comment on above: Result Comment: 2L N C Performed By: #### G AS5 #### [facility] (DEFAULT) [address] [place] [address] HCO3 (Bld) [Moles/Vol] 38 mmol/L High 22-28 [facility] Comment on above: Performed By: #### G AS5 #### [facility] (DEFAULT) [address] [place] [address] 488[address] Oxygen saturation in Blood 97 % Normal 94-98 [facility] Comment on above: Performed By: #### G AS5 #### [facility] (DEFAULT) [address] [place] [address] 064[address] pCO2 62 mm Hg High 32-48 [facility] Comment on above: Performed By: #### G AS5 #### [facility] (DEFAULT) [address] [place] [address]1979 pH, Arterial 7.40 Normal 7.35-7.45 [facility] Comment on above: Performed By: #### G AS5 #### [facility] (DEFAULT) [address] [place] [address] pO2 75 mm Hg Low 83-108 [facility] Comment on above: Performed By: #### G AS5 #### [facility] (DEFAULT) [address] [place] [address] Specimen type Nom (Spec) Arterial Normal [facility] Comment on above: Performed By: #### G AS5 #### [facility] (DEFAULT) [address] [place] [address] CBC,PLATELETSon 10-19-2024 Erythrocyte distribution width (RBC) [Ratio] 13.3 % 10.9 - 14.3 % [facility] Hematocrit (Bld) [Volume fraction] 35.8 % Low 39.6 - 48.8 % [facility] Hemoglobin (Bld) [Mass/Vol] 11.3 g/dL Low 13.4 - 16.8 g/dL [facility] Interpretation and review of laboratory results Abnormal [facility] MCH (RBC) [Entitic mass] 26.5 pg 26. 1 - 33.3 pg [facility] MCHC (RBC) [Mass/Vol] 31.6 g/dL Low 31.9 - 36.5 g/dL [facility] MCV (RBC) [Entitic vol] 84 fL 79.0 - 94.5 fL [facility] Platelet mean volume (Bld) [Entitic vol] 9.1 fL 8.7 - 12.3 fL [facility] Platelets (Bld) [#/Vol] 250 10*3/uL 146 - 337 K/uL [facility] RBC (Bld) [#/Vol] 4.26 10*6/uL Low [facility] WBC (Bld) [#/Vol] 8.75 10*3/uL 3.73 - 10. 10 K/uL [facility] Hematocrit (Bld) [Volume fraction] 35.8 % Low 39.6-48.8 [facility] Comment on above: Performed By: #### T YPEC #### [facility] (DEFAULT) [address] [place] [address] Hemoglobin (Bld) [Mass/Vol] 11.3 g/dL Low 13.4-16.8 [facility] Comment on above: Performed By: #### T YPEC #### [facility] (DEFAULT) [address] [address] MCV (RBC) [Entitic vol] 84.0 fL Normal 79.0-94.5 [facility] Comment on above: Performed By: #### T YPEC #### [facility] (DEFAULT) [address] [address] Mean Cell Hgb 26.5 pg Normal 26.1-33.3 [facility] Comment on above: Performed By: #### T YPEC #### [facility] (DEFAULT) [address] [address] Mean Cell Hgb Conc 31.6 g/dL Low 31.9-36.5 [facility] Comment on above: Performed By: #### T YPEC #### [facility] (DEFAULT) [address] [place] [address] Platelet mean volume (Bld) [Entitic vol] 9.1 fL Normal 8.7-12.3 [facility] Comment on above: Performed By: #### T YPEC #### [facility] (DEFAULT) [address] [place] [address] Platelets (Bld) [#/Vol] 250 10*3/uL Normal 146-337 [facility] Comment on above: Performed By: #### T YPEC #### [facility] (DEFAULT) [address] [place] [address] RBC (Bld) [#/Vol] 4.26 10*6/uL Low 4.38-5.83 [facility] Comment on above: Performed By: #### T YPEC #### [facility] (DEFAULT) [address] [place] [address] RBC Distribution 13.3 % Normal 10.9-14.3 [facility] Comment on above: Performed By: #### T YPEC #### [facility] (DEFAULT) [address] [address] WBC (Bld) [#/Vol] 8.75 10*3/uL Normal 3.73-10.10 [facility] Comment on above: Performed By: #### T YPEC #### [facility] (DEFAULT) [address] [place] [address] CHEM 7 (LYTES,BUN,CREA,GLUC) on 10-19-2024 Anion gap [Moles/Vol] 11 mmol/L 7 - 17 mmol/L [facility] Chloride [Moles/Vol] 96 mmol/L Low 98 - 10 8 mmol/L [facility] CO2 [Moles/Vol] 37 mmol/L High 21 - 31 mmol/L [facility] Creatinine [Mass/Vol] 0.66 mg/dL Low 0.70 - 1.30 mg/dL [facility] eGFR, CKD-EPI, Male - PINF [facility] Glucose [Mass/Vol] 177 mg/dL 70 - 179 mg/dL [facility] Interpretation and review of laboratory results Abnormal [facility] Osmolality Calc [Osmolality] 298 [facility] Potassium [Moles/Vol] 3.8 mmol/L 3.5 - 5.0 mmol/L [facility] Sodium [Moles/Vol] 140 mmol/L 135 - 145 mmol/L [facility] Urea nitrogen [Mass/Vol] 14 mg/dL 7 - 25 mg/d L [facility] Urea nitrogen/Creatinine [Mass ratio] 21 mg/mg [facility] Anion gap [Moles/Vol] 11 mmol/L Normal 7-17 [facility] Comment on above: Performed By: #### Y NTBNP #### [facility] (DEFAULT) [address] [place] [address] Chloride [Moles/Vol] 96 mmol/L Low 98-108 [facility] Comment on above: Performed By: #### Y NTBNP #### [facility] (DEFAULT) [address] [place] [address] CO2 [Moles/Vol] 37 mmol/L High 21-31 [facility] Comment on above: Performed By: #### Y NTBNP #### [facility] (DEFAULT) [address] [place] [address] Creatinine [Mass/Vol] 0.66 mg/dL Low 0.70-1.30 [facility] Comment on above: Performed By: #### Y NTBNP #### [facility] (DEFAULT) [address] [place] [address] eGFR, CKD-EPI, Male > Normal >=60 [facility] Comment on above: Result Comment: Repo rted eGFR is based on the CKD-EPI 2020 equation using creatinine, age, and sex. Performed By: #### Y NTBNP #### [facility] (DEFAULT) [address] [place] [address] Glucose [Mass/Vol] 177 mg/dL Normal Nonfastin -179 mg/dL; Fastin-99 [facility] Comment on above: Performed By: #### Y NTBNP #### [facility] (DEFAULT) [address] [place] [address] Osmolality [Osmolality] 298 mosm/kg Normal 278-305 [facility] Comment on above: Performed By: #### Y NTBNP #### [facility] (DEFAULT) [address] [place] [address] Potassium [Moles/Vol] 3.8 mmol/L Normal 3.5-[facility].0 [facility]: Performed By: #### Y NTBNP #### [facility] (DEFAULT) [address] [place] [address] Sodium [Moles/Vol] 140 mmol/L Normal 135-145 [facility] Comment on above: Performed By: #### Y NTBNP #### [facility] (DEFAULT) [address] [place] [address] Urea nitrogen [Mass/Vol] 14 mg/dL Normal 7-25 [facility] Comment on above: Performed By: #### Y NTBNP #### [facility] (DEFAULT) [address] [place] [address] Urea nitrogen/Creatinine [Mass ratio] 21 mg/mg Normal [facility] Comment on above: Performed By: #### Y NTBNP #### [facility] (DEFAULT) [address] [place] [address] Anion gap [Moles/Vol] 10 mmol/L 7 - 17 mmol/L [facility] Chloride [Moles/Vol] 100 mmol/L 98 - 10 8 mmol/L [facility] CO2 [Moles/Vol] 37 mmol/L High 21 - 31 mmol/L [facility] Creatinine [Mass/Vol] 0.6 mg/dL Low 0.70 - 1.30 mg/dL [facility] eGFR, CKD-EPI, Male - PINF [facility] Glucose [Mass/Vol] 138 mg/dL 70 - 179 mg/dL [facility] Interpretation and review of laboratory results Abnormal [facility] Osmolality Calc [Osmolality] 300 [facility] Potassium [Moles/Vol] 3.5 mmol/L 3.5 - 5.0 mmol/L [facility] Sodium [Moles/Vol] 143 mmol/L 135 - 145 mmol/L [facility] Urea nitrogen [Mass/Vol] 12 mg/dL 7 - 25 mg/d L [facility] Urea nitrogen/Creatinine [Mass ratio] 20 mg/mg [facility] Anion gap [Moles/Vol] 10 mmol/L Normal 7-17 [facility] Comment on above: Performed By: #### U [id number] #### [facility] (DEFAULT) [address] [place] [address] Chloride [Moles/Vol] 100 mmol/L Normal 98-108 [facility] Comment on above: Performed By: #### U [id number] #### [facility] (DEFAULT) [address] [place] [address] CO2 [Moles/Vol] 37 mmol/L High 21-31 [facility] Comment on above: Performed By: #### U [id number] #### [facility] (DEFAULT) [address] [place] [address] 65649 Creatinine [Mass/Vol] 0.60 mg/dL Low 0.70-1.30 [facility] Comment on above: Performed By: #### U [id number] #### [facility] (DEFAULT) [address] [place] [address] 81197 eGFR, CKD-EPI, Male > Normal >=60 [facility] Comment on above: Result Comment: Repo rted eGFR is based on the CKD-EPI 2020 equation using creatinine, age, and sex. Performed By: #### U [id number] #### [facility] (DEFAULT) [address] [place] [address] 16863 Glucose [Mass/Vol] 138 mg/dL Normal Nonfastin -179 mg/dL; Fastin-99 [facility] Comment on above: Performed By: #### U [id number] #### [facility] (DEFAULT) [address] [place] [address] 8[address]60 Osmolality [Osmolality] 300 mosm/kg Normal 278-305 [facility] Comment on above: Performed By: #### U [id number] #### [facility] (DEFAULT) [address] [place] [address] 49369 Potassium [Moles/Vol] 3.5 mmol/L Normal 3.5-5.0 [facility] Comment on above: Performed By: #### U [id number] #### [facility] (DEFAULT) [address] [place] [address] 97245 Sodium [Moles/Vol] 143 mmol/L Normal 135-145 [facility] Comment on above: Performed By: #### U [id number] #### [facility] (DEFAULT) [address] [place] [address] 23929 Urea nitrogen [Mass/Vol] 12 mg/dL Normal 7-25 [facility] Comment on above: Performed By: #### U [id number] #### [facility] (DEFAULT) [address] [place] [address] 21232 Urea nitrogen/Creatinine [Mass ratio] 20 mg/mg Normal [facility] Comment on above: Performed By: #### U [id number] #### [facility] (DEFAULT) [address] [place] [address] 49620 CYSTATIN C AND CREATININE WI ESTIMATED GFRon 10-19-2024 Creatinine [Mass/Vol] 0.55 mg/dL Low 0.70 - 1.30 mg/dL [facility] Cystatin C 1.68 mg/L High 0.51 - 1.05 mg/L [facility] EGFR BY CYS C AND CREATININE, MALE 62 - PINF [facility] Interpretation and review of laboratory results Abnormal [facility] Creatinine [Mass/Vol] 0.55 mg/dL Low 0.70-1.30 [facility] Comment on above: Performed By: #### U [id number] #### [facility] (DEFAULT) [address] [place] [address] 10875 Cystatin C 1.68 mg/L High 0.51-1.05 [facility] Comment on above: Performed By: #### U [id number] #### [facility] (DEFAULT) [address] [place] [address] EGFR BY CYS C AND CREATININE, MALE 62 mL/min/1.73m2 Normal >=60 [facility] Comment on above: Result Comment: Repo rted eGFR is based on the CKD-EPI 2020 equation using cystatin C, creatinine, age, and sex. Performed By: #### U [id number] #### [facility] (DEFAULT) [address] [place] [address] GLUCOSE POCon 10-19-2024 Glucose [Mass/Vol] 149 mg/dL 70 - 179 mg/dL [facility] POC Sample Type CAPBL [facility] Glucose [Mass/Vol] 176 mg/dL 70 - 179 mg/dL [facility] Glucose [Mass/Vol] 185 mg/dL High 70 - 179 mg/dL [facility] Interpretation and review of laboratory results Abnormal [facility] POC Sample Type CAPBL [facility] POC Sample Type ARTER [facility] Glucose [Mass/Vol] 110 mg/dL 70 - 179 mg/dL [facility] POC Sample Type CAPBL [facility] Glucose [Mass/Vol] 186 mg/dL High 70 - 179 mg/dL [facility] Glucose [Mass/Vol] 236 mg/dL High 70 - 179 mg/dL [facility] Glucose [Mass/Vol] 143 mg/dL 70 - 179 mg/dL [facility] IONIZED CALCIUM, SERUMOrdere d By: Jyothi Cantu on 10-19-2024 Calcium.ionized (Bld) [Moles/Vol] 4.85 mg/dL 4.60 - 5.30 mg/dL [facility] Interpretation and review of laboratory results Normal [facility] IONIZED CALCIUM, SERUMon ICA 4.85 mg/dL Normal 4.60-5.30 [facility] Comment on above: Performed By: #### X M #### [facility] (DEFAULT) [address] [place] [address] 48242 MAGNESIUMon 10-19-2024 Magnesium [Mass/Vol] 2 mg/dL 1.6 - 2 .6 mg/dL [facility] Magnesium [Mass/Vol] 2.0 mg/dL Normal 1.6-2.6 [facility] Comment on above: Performed By: #### B LDCULT #### [facility] (DEFAULT) [address] [place] [address] 14642 NT-PRO B-TYPE NATRIURETIC PE PTIDEon 10-19-2024 Interpretation and review of laboratory results Normal [facility] Natriuretic peptide.B prohormone N-Terminal IA [Mass/Vol] 473 pg/mL NINF - 540 pg/mL [facility] Natriuretic peptide B (Bld) [Mass/Vol] 473 pg/mL Normal <=540 [facility] Comment on above: Performed By: #### Y NTBNP #### [facility] (DEFAULT) [address] [place] [address] 89139 No Panel Informationon 10-19 [facility] Interpretation and review of laboratory results Abnormal [facility] POC Sample Type CAPBL [facility] Interpretation and review of laboratory results Normal [facility] PHOSPHATE, INORGANICon 10-19 Phosphate [Mass/Vol] 3.3 mg/dL 2.2 - 4 .6 mg/dL [facility] Phosphorous 3.3 mg/dL Normal 2.2-4.6 [facility] Comment on above: Performed By: #### U [id number] #### [facility] (DEFAULT) [address] [place] [address] 19314 Portable XR Chest Viewson RADIOLOGY RADIOLOGY [facility] Radiology Study observation (narrative) [facility] Portable XR Chest ViewsOrder ed By: Nina Morris on 10-19-2024 [facility] Work Phone: SCREEN: MRSA/MSSAOrdered By: Nils Valencia on 10-19-2024 Interpretation and review of laboratory results Normal [facility] Methicillin Resistant S. Aureus By Pcr Negative Negative [facility] Staphylococcus Aureus By Pcr Negative Negative [facility] Wound Cultureon 10-19-[address] [facility] Comment on above: Performed By: #### M 100.2000, M100.3000, M100.4001 ####[facility] [id number] [place], [address] XR CHEST 1 VIEW PORTABLEon 0 10-19-2024 XR CHEST 1 VIEW PORTABLE EXAM: XR CHEST 1 VIEW PORTABLE, 10/19/2024 08:37 AM COMPARISON: Compared to prior study dated October 18, 2024. CLINICAL INDICATIONS: pulm edema RELEVANT CLINICAL HISTORY: FINDINGS: (Adequate technique) Implanted Devices: Stable right PICC with its tip at right atrium. Thorax: Similar-appearing central congestive changes. Stable layering small bilateral pleural effusions with adjacent atelectasis, right greater than left. Stable enlarged cardiac silhouette. No interval osseous findings. IMPRESSION: No significant change from the previous examination I personally viewed and interpreted these images and I have reviewed and approved this report. Normal [facility] ARTERIAL BLOOD GASon 025 Base excess Calc (Bld) [Moles/Vol] 7.7 mmol/L High -3.0 - 3.0 mmol/L [facility] CO2 (Bld) [Partial pressure] 54 mm[Hg] High [facility] HCO3 (Bld) [Moles/Vol] 33 mmol/L High 22 - 28 mmol/L [facility] Interpretation and review of laboratory results Abnormal [facility] Oxygen (Bld) [Partial pressure] 73 mm[Hg] Low [facility] Oxygen saturation in Blood 96 % 94 - 98 % [facility] pH (Bld) 7.39 [pH] 7.35 - 7.45 [facility] Specimen source Nom (Unsp spec) Arterial [facility] Base Excess 7.7 mmol/L High -3.0-3.0 [facility] Comment on above: Performed By: #### X M #### [facility] (DEFAULT) [address] [place] [address] 38212 HCO3 (Bld) [Moles/Vol] 33 mmol/L High 22-28 [facility] Comment on above: Performed By: #### X M #### [facility] (DEFAULT) [address] [place] [address] 16242 Oxygen saturation in Blood 96 % Normal 94-98 [facility] Comment on above: Performed By: #### X M #### [facility] (DEFAULT) [address] [address] pCO2 54 mm Hg High 32-48 [facility] Comment on above: Performed By: #### X M #### [facility] (DEFAULT) [address] [place] [address] 58070 pH, Arterial 7.39 Normal 7.35-7.45 [facility] Comment on above: Performed By: #### X M #### [facility] (DEFAULT) [address] [place] [address] 49407 pO2 73 mm Hg Low 83-108 [facility] Comment on above: Performed By: #### X M #### [facility] (DEFAULT) [address] [address] Specimen type Nom (Spec) Arterial Normal [facility] Comment on above: Performed By: #### X M #### [facility] (DEFAULT) [address] [place] [address] CBC,PLATELETSon 10-18-2024 Erythrocyte distribution width (RBC) [Ratio] 13.3 % 10.9 - 14.3 % [facility] Hematocrit (Bld) [Volume fraction] 34.5 % Low 39.6 - 48.8 % [facility] Hemoglobin (Bld) [Mass/Vol] 11.2 g/dL Low 13.4 - 16.8 g/dL [facility] Interpretation and review of laboratory results Abnormal [facility] MCH (RBC) [Entitic mass] 26.7 pg 26. 1 - 33.3 pg [facility] MCHC (RBC) [Mass/Vol] 32.5 g/dL 31.9 - 36.5 g/dL [facility] MCV (RBC) [Entitic vol] 82.1 fL 79.0 - 94.5 fL [facility] Platelet mean volume (Bld) [Entitic vol] 9.2 fL 8.7 - 12.3 fL [facility] Platelets (Bld) [#/Vol] 259 10*3/uL 146 - 337 K/uL [facility] RBC (Bld) [#/Vol] 4.2 10*6/uL Low [facility] WBC (Bld) [#/Vol] 9.62 10*3/uL 3.73 - 10. 10 K/uL [facility] Hematocrit (Bld) [Volume fraction] 34.5 % Low 39.6-48.8 [facility] Comment on above: Performed By: #### U [id number] #### [facility] (DEFAULT) [address] [place] [address] Hemoglobin (Bld) [Mass/Vol] 11.2 g/dL Low 13.4-16.8 [facility] Comment on above: Performed By: #### U [id number] #### [facility] (DEFAULT) [address] [place] [address] MCV (RBC) [Entitic vol] 82.1 fL Normal 79.0-94.5 O [facility] Comment on above: Performed By: #### U [id number] #### [facility] (DEFAULT) [address] [address] Mean Cell Hgb 26.7 pg Normal 26.1-33.3 [facility] Comment on above: Performed By: #### U [id number] #### [facility] (DEFAULT) [address] [address] Mean Cell Hgb Conc 32.5 g/dL Normal 31.9-36.5 [facility] Comment on above: Performed By: #### U [id number] #### [facility] (DEFAULT) [address] [address] Platelet mean volume (Bld) [Entitic vol] 9.2 fL Normal 8.7-12.3 [facility] Comment on above: Performed By: #### U [id number] #### [facility] (DEFAULT) [address] [address] Platelets (Bld) [#/Vol] 259 10*3/uL Normal 146-337 [facility] Comment on above: Performed By: #### U [id number] #### [facility] (DEFAULT) [address] [address] RBC (Bld) [#/Vol] 4.20 10*6/uL Low 4.38-5.83 [facility] Comment on above: Performed By: #### U [id number] #### [facility] (DEFAULT) [address] [address] RBC Distribution 13.3 % Normal 10.9-14.3 [facility] Comment on above: Performed By: #### U [id number] #### [facility] (DEFAULT) [address] [address] WBC (Bld) [#/Vol] 9.62 10*3/uL Normal 3.73-10.10 [facility] Comment on above: Performed By: #### U [id number] #### [facility] (DEFAULT) [address] [place] [address] CHEM 7 (LYTES,BUN,CREA,GLUC) on 10-18-2024 Anion gap [Moles/Vol] 10 mmol/L 7 - 17 mmol/L [facility] Chloride [Moles/Vol] 102 mmol/L 98 - 10 8 mmol/L [facility] CO2 [Moles/Vol] 34 mmol/L High 21 - 31 mmol/L [facility] Creatinine [Mass/Vol] 0.58 mg/dL Low 0.70 - 1.30 mg/dL [facility] eGFR, CKD-EPI, Male - PINF [facility] Glucose [Mass/Vol] 187 mg/dL High 70 - 179 mg/dL [facility] Interpretation and review of laboratory results Abnormal [facility] Osmolality Calc [Osmolality] 302 [facility] Potassium [Moles/Vol] 3.8 mmol/L 3.5 - 5.0 mmol/L [facility] Sodium [Moles/Vol] 142 mmol/L 135 - 145 mmol/L [facility] Urea nitrogen [Mass/Vol] 13 mg/dL 7 - 25 mg/d L [facility] Urea nitrogen/Creatinine [Mass ratio] 22 mg/mg [facility] Anion gap [Moles/Vol] 10 mmol/L Normal 7-17 [facility] Comment on above: Performed By: #### V ANCTR #### [facility] (DEFAULT) [address] [place] [address] Chloride [Moles/Vol] 102 mmol/L Normal 98-108 [facility] Comment on above: Performed By: #### V ANCTR #### [facility] (DEFAULT) [address] [place] [address] CO2 [Moles/Vol] 34 mmol/L High 21-31 [facility] Comment on above: Performed By: #### V ANCTR #### [facility] (DEFAULT) [address] [address] Creatinine [Mass/Vol] 0.58 mg/dL Low 0.70-1.30 [facility] Comment on above: Performed By: #### V ANCTR #### [facility] (DEFAULT) [address] [address] eGFR, CKD-EPI, Male > Normal >=60 [facility] Comment on above: Result Comment: Repo rted eGFR is based on the CKD-EPI 2020 equation using creatinine, age, and sex. Performed By: #### V ANCTR #### [facility] (DEFAULT) [address] [address] Glucose [Mass/Vol] 187 mg/dL High Nonfastin -179 mg/dL; Fastin-99 [facility] Comment on above: Performed By: #### V ANCTR #### [facility] (DEFAULT) [address] [address] Osmolality [Osmolality] 302 mosm/kg Normal 278-305 [facility] Comment on above: Performed By: #### V ANCTR #### [facility] (DEFAULT) [address] [address] Potassium [Moles/Vol] 3.8 mmol/L Normal 3.5-5.0 [facility] Comment on above: Performed By: #### V ANCTR #### [facility] (DEFAULT) [address] [address] Sodium [Moles/Vol] 142 mmol/L Normal 135-145 [facility] Comment on above: Performed By: #### V ANCTR #### [facility] (DEFAULT) [address] [address] Urea nitrogen [Mass/Vol] 13 mg/dL Normal 7-25 [facility] Comment on above: Performed By: #### V ANCTR #### [facility] (DEFAULT) [address] [place] [address] Urea nitrogen/Creatinine [Mass ratio] 22 mg/mg Normal [facility] Comment on above: Performed By: #### V ANCTR #### [facility] (DEFAULT) [address] [place] [address] Anion gap [Moles/Vol] 12 mmol/L 7 - 17 mmol/L [facility] Chloride [Moles/Vol] 103 mmol/L 98 - 10 8 mmol/L [facility] CO2 [Moles/Vol] 29 mmol/L 21 - 31 mmol/L [facility] Creatinine [Mass/Vol] 0.52 mg/dL Low 0.70 - 1.30 mg/dL [facility] eGFR, CKD-EPI, Male - PINF [facility] Glucose [Mass/Vol] 245 mg/dL High 70 - 179 mg/dL [facility] Interpretation and review of laboratory results Abnormal [facility] Osmolality Calc [Osmolality] 302 [facility] Potassium [Moles/Vol] 3.9 mmol/L 3.5 - 5.0 mmol/L [facility] Sodium [Moles/Vol] 140 mmol/L 135 - 145 mmol/L [facility] Urea nitrogen [Mass/Vol] 12 mg/dL 7 - 25 mg/d L [facility] Urea nitrogen/Creatinine [Mass ratio] 23 mg/mg [facility] Anion gap [Moles/Vol] 12 mmol/L Normal 7-17 [facility] Comment on above: Performed By: #### B LDCULT #### [facility] (DEFAULT) [address] [place] [address] Chloride [Moles/Vol] 103 mmol/L Normal 98-108 [facility] Comment on above: Performed By: #### B LDCULT #### [facility] (DEFAULT) [address] [place] [address] CO2 [Moles/Vol] 29 mmol/L Normal 21-31 [facility] Comment on above: Performed By: #### B LDCULT #### [facility] (DEFAULT) [address] [place] [address] Creatinine [Mass/Vol] 0.52 mg/dL Low 0.70-1.30 [facility] Comment on above: Performed By: #### B LDCULT #### [facility] (DEFAULT) [address] [place] [address] eGFR, CKD-EPI, Male > Normal >=60 [facility] Comment on above: Result Comment: Repo rted eGFR is based on the CKD-EPI 2020 equation using creatinine, age, and sex. Performed By: #### B LDCULT #### [facility] (DEFAULT) [address] [place] [address] Glucose [Mass/Vol] 245 mg/dL High Nonfastin -179 mg/dL; Fastin-99 [facility] Comment on above: Performed By: #### B LDCULT #### [facility] (DEFAULT) [address] [place] [address] Osmolality [Osmolality] 302 mosm/kg Normal 278-305 [facility] Comment on above: Performed By: #### B LDCULT #### [facility] (DEFAULT) [address] [place] [address] Potassium [Moles/Vol] 3.9 mmol/L Normal 3.5-5.0 [facility] Comment on above: Performed By: #### B LDCULT #### [facility] (DEFAULT) [address] [place] [address] Sodium [Moles/Vol] 140 mmol/L Normal 135-145 [facility] Comment on above: Performed By: #### B LDCULT #### [facility] (DEFAULT) [address] [place] [address] Urea nitrogen [Mass/Vol] 12 mg/dL Normal 7-25 [facility] Comment on above: Performed By: #### B LDCULT #### [facility] [address] [place] [address] Urea nitrogen/Creatinine [Mass ratio] 23 mg/mg Normal [facility] Comment on above: Performed By: #### B LDCULT #### [facility] (DEFAULT) [address] [place] [address] CT HEAD WITHOUT CONTRASTon 0 10-18-2024 CT HEAD WITHOUT CONTRAST EXAM: CT HEAD W ITHOUT CONTRAST, 10/18/2024 7:51 AM COMPARISON: CT HEAD WITHOUT CONTRAST October 17, 2024 CLINICAL INDICATIONS: 69 years Male F/u hemorrhage and cerebral edema RELEVANT CLINICAL HISTORY: TECHNIQUE: A series of transaxial computerized tomographic images are obtained from base of skull to vertex without intravenous contrast. Axial whole-head and thin section posterior fossa slices are provided. Reformats: Sagittal and coronal. FINDINGS: Intracranially hematoma in the left temporal occipital lobe is unchanged and event. There is mild mass effect on the left temporal and occipital lobe. Extension into the ventricular system again noted. 3 mm of rightward midline shift. Several of these areas demonstrate loss of the duffy-white matter differentiation as noted on previous exam infarct although could be secondary to the degree of associated edema. There is no significant midline shift. No herniation or hydrocephalus. Skull appears intact. Visualized orbits appear normal. Visualized paranasal sinuses are clear. Chronic right maxillary sinusitis with cirrhosis thickening of the sinus wall. Visualized mastoid air cells are clear. Atherosclerotic calcifications of the major arteries at the skull base are noted. IMPRESSION: Unchanged hematoma with surrounding edema in the left temporal occipital lobes Normal [facility] CT Head WO contraston 2024 RADIOLOGY RADIOLOGY [facility] Radiology Study observation (narrative) [facility] CT Head WO contrastOrdered B y: Annamarie Del Castillo on 10-18-2024 [facility] Work Phone: GLUCOSE POCon 10-18-2024 Glucose [Mass/Vol] 220 mg/dL High 70 - 179 mg/dL [facility] Glucose [Mass/Vol] 212 mg/dL High 70 - 179 mg/dL [facility] Glucose [Mass/Vol] 252 mg/dL High 70 - 179 mg/dL [facility] Interpretation and review of laboratory results Abnormal [facility] POC Sample Type ARTER [facility] Glucose [Mass/Vol] 219 mg/dL High 70 - 179 mg/[facility] Glucose [Mass/Vol] 236 mg/dL High 70 - 179 mg/dL [facility] Glucose [Mass/Vol] 244 mg/dL High 70 - 179 mg/dL [facility] POC Sample Type VENO [facility] IONIZED CALCIUM, SERUMOrdere d By: Sohan Lynn on 10-18-2024 Calcium.ionized (Bld) [Moles/Vol] 4.73 mg/dL 4.60 - 5.30 mg/dL [facility] Interpretation and review of laboratory results Normal [facility] IONIZED CALCIUM, SERUMon ICA 4.73 mg/dL Normal 4.60-5.30 [facility] Comment on above: Performed By: #### X M #### [facility] (DEFAULT) [address] [place] [address] MAGNESIUMon 10-18-2024 Magnesium [Mass/Vol] 2 mg/dL 1.6 - 2 .6 mg/dL [facility] Magnesium [Mass/Vol] 2.0 mg/dL Normal 1.6-2.6 [facility] Comment on above: Performed By: #### B LDCULT #### [facility] (DEFAULT) [address] [place] [address] No Panel Informationon 10-18 Interpretation and review of laboratory results Abnormal [facility] POC Sample Type ARTER [facility] Interpretation and review of laboratory results Abnormal [facility] POC Sample Type CAPBL [facility] Interpretation and review of laboratory results Normal [facility] PHOSPHATE, INORGANICon 10-18 Phosphate [Mass/Vol] 3.4 mg/dL 2.2 - 4 .6 mg/dL [facility] Phosphorous 3.4 mg/dL Normal 2.2-4.6 [facility] Comment on above: Performed By: #### B LDCULT #### [facility] (DEFAULT) [address] [place] [address] PLATELET COUNTon 10-18-2024 Interpretation and review of laboratory results Normal [facility] Platelet mean volume (Bld) [Entitic vol] 9.2 fL 8.7 - 12.3 fL [facility] Platelets (Bld) [#/Vol] 256 10*3/uL 146 - 337 K/uL [facility] Platelet mean volume (Bld) [Entitic vol] 9.2 fL Normal 8.7-12.3 [facility] Comment on above: Performed By: #### C HM7 #### [facility] (DEFAULT) [address] [place] [address] Platelets (Bld) [#/Vol] 256 10*3/uL Normal 146-337 [facility] Comment on above: Performed By: #### C HM7 #### [facility] (DEFAULT) [address] [place] [address] Portable XR Chest Viewson RADIOLOGY RADIOLOGY [facility] Radiology Study observation (narrative) [facility] SCREEN: MRSA/MSSAon 10-19-19 25 Methicillin Resistant S. Aureus By Pcr Negative Normal Negative [facility] Comment on above: Order Comment: Colle ct with an ESWAB - Anterior Nares for MRSA + MSSAThis test was performed using a real time PCR assay. Results should be interpreted in conjunction with other clinical and laboratory findings. A positive result does not necessarily indicate the presence of viable organism. This test should not be used as a test of cure. For E-swab specimens, this test was developed and its performance characteristics determined by the Clinical Microbiology Laboratory at [facility]. It has not been cleared or approved by the FDA.The laboratory is regulated under CLIA as qualified to perform high-complexity testing. This test is used for clinical purposes. It should not be regarded as investigational or for research. Performed By: #### X M #### [facility] (DEFAULT) [address] [address] Staphylococcus Aureus By Pcr Negative Normal Negative [facility] Comment on above: Order Comment: Colle ct with an ESWAB - Anterior Nares for MRSA + MSSAThis test was performed using a real time PCR assay. Results should be interpreted in conjunction with other clinical and laboratory findings. A positive result does not necessarily indicate the presence of viable organism. This test should not be used as a test of cure. For E-swab specimens, this test was developed and its performance characteristics determined by the Clinical Microbiology Laboratory at [facility]. It has not been cleared or approved by the FDA.The laboratory is regulated under CLIA as qualified to perform high-complexity testing. This test is used for clinical purposes. It should not be regarded as investigational or for research. Performed By: #### X M #### [facility] (DEFAULT) [address] [address] SODIUMon 10-18-2024 Interpretation and review of laboratory results Normal [facility] Sodium [Moles/Vol] 142 mmol/L 135 - 145 mmol/L [facility] Sodium [Moles/Vol] 142 mmol/L Normal 135-145 [facility] Comment on above: Order Comment: Pleas e collect 2 hrs s/p 3% NS bolus when given. Performed By: #### X M #### [facility] (DEFAULT) [address] [address] Interpretation and review of laboratory results Normal [facility] Sodium [Moles/Vol] 143 mmol/L 135 - 145 mmol/L [facility] Sodium [Moles/Vol] 143 mmol/L Normal 135-145 [facility] Comment on above: Order Comment: For i ndwelling catheters, specimen collection is acceptable on catheter day 1 and 2 only. ? Performed By: #### U [id number] #### [facility] (DEFAULT) [address] [place] [address] VANCOMYCIN LEVEL, TROUGH (FL E DRUG LEVEL)on 10-18-2024 Interpretation and review of laboratory results Abnormal [facility] Vancomycin trough [Mass/Vol] 24.2 ug/[facility] Vancomycin, Trough 24.2 mcg/mL High Therapeut ic Range: 10.0-20.0 mcg/mL [facility] Comment on above: Order Comment: Pleas e draw level 1 hour PRIOR to 1800 vancomycin dose. Performed By: #### C HM7 #### [facility] (DEFAULT) [address] [place] [address] Wound Cultureon 10-18-[address] [facility] Comment on above: Performed By: #### M 100.4001, M100.3000, M100.2000 ####[facility] [id number]. [place], [place], [id number] XR CHEST 1 VIEW PORTABLEon 0 10-18-2024 XR CHEST 1 VIEW PORTABLE EXAM: XR CHEST 1 VIEW PORTABLE, 10/18/2024 08:09 AM COMPARISON: October 17, 2024 CLINICAL INDICATIONS: C/f pulmonary edema RELEVANT CLINICAL HISTORY: FINDINGS: (Adequate technique) Implanted Devices: None Thorax: Bilateral pleural effusions, moderate in size, with associated atelectatic or consolidative changes. Heart size stable. No major change. IMPRESSION: No major change, see above. Normal [facility] XR FOOT RIGHT 3+ VIEWSon XR FOOT RIGHT 3+ VIEWS EXAM: XR FOOT RIG HT 3+ VIEWS, 10/18/2024 18:37 PM COMPARISON: No prior studies available for comparison. CLINICAL INDICATIONS: F/u debridement at OSH 2/2 osteomyelitis RELEVANT CLINICAL HISTORY: FINDINGS: 3 nonweightbearing images obtained. Markedly compromised evaluation of the toes secondary to suboptimal projections. External fixator in place also obscures portions of the osseous structures. No acute fracture identified. Midfoot arthritic changes are evident. Osseous defect along the posterior superior margin of the calcaneus may be a site of prior debridement. IMPRESSION: Limited examination as above without acute osseous abnormality. Possible debridement site along the posterior superior calcaneal margin. Normal [facility] XR Foot - right 3 Viewson RADIOLOGY RADIOLOGY [facility] Radiology Study observation (narrative) [facility] XR Foot - right 3 ViewsOrder ed By: Rogelio Samuel on 10-18-2024 [facility] Work Phone: ARTERIAL BLOOD GASon 025 Base excess Calc (Bld) [Moles/Vol] 5.7 mmol/L High -3.0 - 3.0 mmol/L [facility] CO2 (Bld) [Partial pressure] 44 mm[Hg] [facility] HCO3 (Bld) [Moles/Vol] 30 mmol/L High 22 - 28 mmol/L [facility] Inhaled oxygen concentration 40 % [facility] Interpretation and review of laboratory results Abnormal [facility] Oxygen (Bld) [Partial pressure] 80 mm[Hg] Low [facility] Oxygen saturation in Blood 98 % 94 - 98 % [facility] PF Ratio 200 [facility] pH (Bld) 7.44 [pH] 7.35 - 7.45 [facility] Specimen source Nom (Unsp spec) Arterial [facility] Base Excess 5.7 mmol/L High -3.0-3.0 [facility] Comment on above: Performed By: #### X M #### [facility] (DEFAULT) [address] [place] [address] FIO2 40 % Normal [facility] Comment on above: Performed By: #### X M #### [facility] (DEFAULT) [address] [place] [address] HCO3 (Bld) [Moles/Vol] 30 mmol/L High 22-28 [facility] Comment on above: Performed By: #### X M #### [facility] (DEFAULT) [address] [place] [address] Oxygen saturation in Blood 98 % Normal 94-98 [facility] Comment on above: Performed By: #### X M #### [facility] (DEFAULT) [address] [place] [address] pCO2 44 mm Hg Normal 32-48 [facility] Comment on above: Performed By: #### X M #### [facility] (DEFAULT) [address] [place] [address] PF Ratio 200 Normal [facility] Comment on above: Performed By: #### X M #### [facility] (DEFAULT) [address] [place] [address] pH, Arterial 7.44 Normal 7.35-7.45 [facility] Comment on above: Performed By: #### X M #### [facility] (DEFAULT) [address] [place] [address] pO2 80 mm Hg Low 83-108 [facility] Comment on above: Performed By: #### X M #### [facility] (DEFAULT) [address] [place] [address] Specimen type Nom (Spec) Arterial Normal [facility] Comment on above: Performed By: #### X M #### [facility] (DEFAULT) [address] [place] [address] BETA-HYDROXYBUTYRATE, SERUMo n 10-17-2024 Beta hydroxybutyrate [Moles/Vol] 0.85 mmol/L High NINF - 0.27 mmol/L [facility] Interpretation and review of laboratory results Abnormal [facility] Beta Hydroxybutyrate 0.85 mmol/L High <0.27 [facility] Comment on above: Order Comment: This test has not been cleared or approved by the FDA. The laboratory is regulated under CLIA as qualified to perform high-complexity testing. This test is used for clinical purposes. It should not be regarded as investigational or for research. Result Comment: Beta -hydroxybutyrate >= 3.0 mmol/L is indicative of ketosis. Performed By: #### Y NTBNP #### [facility] (DEFAULT) [address] [address] BLOOD CULTUREon 10-17-2024 Bacteria identified Cx Nom (Unsp spec) NO GROWTH DAY 5 OF 5 Normal [facility] Comment on above: Order Comment: 2 Bot tles (1 Set - consists of 1 Aerobic bottle and 1 Anaerobic bottle) - 1st Peripheral Draw For vacutainer method draw: Fill aerobic bottle first, then anaerobic Results may be compromised due to HIGH VOLUME of the BACT\\ALERT bottle EXCEEDING 10mLs, which can be associated with increased contamination. The optimal blood volume is 8-10mLs per aerobic/anaerobic blood culture bottle. Performed By: #### B LDCULT #### [facility] (DEFAULT) [address] [address] Order Comment: 2 Bot tles (1 Set - consists of 1 Aerobic bottle and 1 Anaerobic bottle) -1st Peripheral DrawFor vacutainer method draw: Fill aerobic bottle first, then anaerobicResults may be compromised due to HIGH VOLUME of the BACT\\ALERT bottle EXCEEDING 10mLs, which can be associated with increased contamination. The optimal blood volume is 8-10mLs per aerobic/anaerobic blood culture bottle. Performed By: #### X M #### [facility] (DEFAULT) [address] [place] [address] CHEM 7 (LYTES,BUN,CREA,GLUC) on 10-17-2024 Anion gap [Moles/Vol] 15 mmol/L 7 - 17 mmol/L [facility] Chloride [Moles/Vol] 100 mmol/L 98 - 10 8 mmol/L [facility] CO2 [Moles/Vol] 27 mmol/L 21 - 31 mmol/L [facility] Creatinine [Mass/Vol] 0.46 mg/dL Low 0.70 - 1.30 mg/dL [facility] eGFR, CKD-EPI, Male - PINF [facility] Glucose [Mass/Vol] 252 mg/dL High 70 - 179 mg/dL [facility] Interpretation and review of laboratory results Abnormal [facility] Osmolality Calc [Osmolality] 299 [facility] Potassium [Moles/Vol] 4.3 mmol/L 3.5 - 5.0 mmol/L [facility] Sodium [Moles/Vol] 138 mmol/L 135 - 145 mmol/L [facility] Urea nitrogen [Mass/Vol] 12 mg/dL 7 - 25 mg/d L [facility] Urea nitrogen/Creatinine [Mass ratio] 26 mg/mg [facility] Anion gap [Moles/Vol] 15 mmol/L Normal 7-17 [facility] Comment on above: Performed By: #### U [id number] #### [facility] (DEFAULT) [address] [place] [address] Chloride [Moles/Vol] 100 mmol/L Normal 98-108 [facility] Comment on above: Performed By: #### U [id number] #### [facility] (DEFAULT) [address] [place] [address] CO2 [Moles/Vol] 27 mmol/L Normal 21-31 [facility] Comment on above: Performed By: #### U [id number] #### [facility] (DEFAULT) [address] [place] [address] Creatinine [Mass/Vol] 0.46 mg/dL Low 0.70-1.30 [facility] Comment on above: Performed By: #### U [id number] #### [facility] (DEFAULT) [address] [place] [address] eGFR, CKD-EPI, Male > Normal >=60 [facility] Comment on above: Result Comment: Repo rted eGFR is based on the CKD-EPI 2020 equation using creatinine, age, and sex. Performed By: #### U [id number] #### [facility] (DEFAULT) [address] [place] [address] Glucose [Mass/Vol] 252 mg/dL High Nonfastin -179 mg/dL; Fastin-99 [facility] Comment on above: Performed By: #### U [id number] #### [facility] (DEFAULT) [address] [place] [address] Osmolality [Osmolality] 299 mosm/kg Normal 278-305 [facility] Comment on above: Performed By: #### U [id number] #### [facility] (DEFAULT) [address] [place] [address] Potassium [Moles/Vol] 4.3 mmol/L Normal 3.5-5.0 [facility] Comment on above: Performed By: #### U [id number] #### [facility] (DEFAULT) [address] [place] [address] Sodium [Moles/Vol] 138 mmol/L Normal 135-145 [facility] Comment on above: Performed By: #### U [id number] #### [facility] (DEFAULT) [address] [place] [address] Urea nitrogen [Mass/Vol] 12 mg/dL Normal 7-25 [facility] Comment on above: Performed By: #### U [id number] #### [facility] (DEFAULT) [address] [place] [address] Urea nitrogen/Creatinine [Mass ratio] 26 mg/mg Normal [facility] Comment on above: Performed By: #### U [id number] #### [facility] (DEFAULT) [address] [place] [address] ANGIO BRAIN/NECKon 2024 CT ANGIO BRAIN/NECK EXAM: CT ANGIO BRAIN/NECK, 10/16/2024 20:58 PM COMPARISON: CT STROKE HEAD-STROKE ALERT ONLY October 16, 2024 CLINICAL INDICATIONS: 69 years Male Suspected Stroke RELEVANT CLINICAL HISTORY: TECHNIQUE: A series of transaxial multislice computerized tomographic images are obtained with helical technique from top of aortic arch to vertex following bolus intravenous administration of nonionic contrast. Axial thin section source images, as well as sagittal and coronal thin section reformats, were provided at the scanner. Additional multiplanar and 3D reconstructions were provided. CONTRAST: iohexol (OMNIPAQUE) 350 MG/ML injection 1-171 mL; Route of Administration: Intravenous; Dose: 100 mL. FINDINGS: CT ANGIOGRAM NECK: AORTIC ARCH: Conventional anatomic origin of the great vessels. No significant stenosis. RIGHT CAROTID ARTERY: Assessment of the proximal right common carotid artery is limited by motion artifact at the level of the thoracic inlet, appearing otherwise patent and normal in caliber.. Internal carotid artery origin at the bifurcation demonstrates atherosclerotic plaque, without significant stenosis. More distal cervical segments of the internal carotid artery are patent and normal in caliber. LEFT CAROTID ARTERY: Common carotid artery demonstrates mild stenosis due to atherosclerosis. Internal carotid artery origin at the bifurcation demonstrates atherosclerotic plaque, without significant stenosis. More distal cervical segments of the internal carotid artery are patent and normal in caliber. RIGHT VERTEBRAL ARTERY: Origin is patent. Assessment of V1 segment is otherwise limited by artifact. More distal cervical segments are patent and normal in caliber. LEFT VERTEBRAL ARTERY: Origin is patent. More distal cervical segments are patent and normal in caliber. OTHER: No dissection or pseudoaneurysm. CT ANGIOGRAM HEAD: INTERNAL CAROTID ARTERIES: Right-sided atherosclerotic calcification. No significant stenosis. ANTERIOR CEREBRAL ARTERIES: Patent and normal in caliber. MIDDLE CEREBRAL ARTERIES: Patent and normal in caliber. POSTERIOR CEREBRAL ARTERIES: Examination is equivocal for a distal P2 segment occlusion of the left posterior cerebral artery (5/144), noting artifact from venous contamination and vessel tortuosity limits assessment. The right posterior cerebral artery is patent and normal in caliber. VERTEBRAL ARTERIES: Patent and normal in caliber. BASILAR ARTERY: Patent. No significant stenosis. OTHER: No aneurysm or AVM. ADDITIONAL FINDINGS: Acute left temporo-occipital hemorrhage as separately reported. Right pleural effusion. Degenerative changes of the spine. IMPRESSION: \\ 1. Examination is equivocal for mid/distal left posterior cerebral artery occlusion (5/144). Artifact from venous contamination and vessel tortuosity limits characterization, and this may reflect vessel bifurcation. As such, presence of infarct with hemorrhagic conversion is not definitive, and underlying mass would be difficult to exclude on the basis of CT alone. MRI with and without contrast is advised to aid characterization, to include MR angiography to more convincingly assess patency of the left posterior cerebral artery. I, Catherine Cornejo MD have discussed the critical finding/s of possible left MEASUREMENT PSYCHOLOGIST occlusion with Kristen Ramon MD on 10/16/2024 8:57 PM. I personally viewed and interpreted these images and I have reviewed and approved this report. Normal [facility] CT HEAD WITHOUT CONTRASTon 0 10-17-2024 CT HEAD WITHOUT CONTRAST EXAM: CT HEAD W ITHOUT CONTRAST, 10/17/2024 3:12 AM COMPARISON: CT STROKE HEAD-STROKE ALERT ONLY October 16, 2024 CLINICAL INDICATIONS: 69 years Male Stroke, hemorrhagic; Stroke, hemorrhagic RELEVANT CLINICAL HISTORY: Perform in 6 hours; TECHNIQUE: A series of transaxial computerized tomographic images are obtained from base of skull to vertex without intravenous contrast. Axial whole-head and thin section posterior fossa slices are provided. Reformats: Sagittal and coronal. FINDINGS: Intracranially hematoma in the left temporal occipital lobe is unchanged and event. There is mild mass effect on the left temporal and occipital lobe. Small amount of intraventricular hemorrhage is mildly increased. 3 mm of rightward midline shift. Several of these areas demonstrate loss of the duffy-white matter differentiation as noted on previous exam infarct although could be secondary to the degree of associated edema. There is no significant midline shift. No herniation or hydrocephalus. Skull appears intact. Visualized orbits appear normal. Visualized paranasal sinuses are clear. Chronic right maxillary sinusitis with cirrhosis thickening of the sinus wall. Visualized mastoid air cells are clear. Atherosclerotic calcifications of the major arteries at the skull base are noted. IMPRESSION: Mild increased edema surrounding the hemorrhage with 3 mm of rightward midline shift. Examination is otherwise not significant changed. Normal [facility] CT Head WO contraston 2024 [facility] CT Head WO contrastOrdered B y: Mihcael Lopes on 10-17-2024 [facility] Work Phone: CT Head and CT Brain for per fusion and CT angiogram Head vessels WO and W contrast Lily 10-17-2024 RADIOLOGY RADIOLOGY [facility] Cardiac echo study Procedure Ordered By: Joel Luo on 10-17-2024 Ao peak diane 1.41 m/s [facility] Work Phone: AV LVOT peak gradient 2 mmHg [facility] Work Phone: AV peak gradient 8 mmHG [facility] Work Phone: AV Velocity Ratio 0.52 [facility] Work Phone: WALT (continuity Vmax) 2.18 cm2 [facility] Work Phone: WALT index (continuity Vmax) 0.82 m/s [facility] Work Phone: Body surface area Derived from formula 2.65 m2 [facility] Work Phone: BP EF 74 % [facility] Work Phone: DI (Vmax) 0.52 [facility] Work Phone: EST RAP 15 mmHg [facility] Work Phone: EST RVSP 49 mmHg [facility] Work Phone: FS 45 % [facility] Work Phone: IVC ostium 2.93 cm [facility] Work Phone: IVS 1.2 cm [facility] Work Phone: LA ESV BP (MOD) 138 [facility] Work Phone: LA ESV BP (MOD) index 52 mL/m2 [facility] Work Phone: LA ESV SP 2CH (MOD) 131 mL [facility] Work Phone: LA ESV SP 4CH (MOD) 142 mL [facility] Work Phone: LV EDV BP 129 mL [facility] Work Phone: LV ESV BP 34 mL [facility] Work Phone: LV mass 280.47 g [facility] Work Phone: LV Mass Index 105.8 g/m2 [facility] Work Phone: LV RWT 0.43 [facility] Work Phone: LV stroke volume BP (ml) 95 [facility] Work Phone: LV stroke volume index BP 35.85 mL/m2 [facility] Work Phone: LVIDD 5.6 cm [facility] Work Phone: LVIDS 3.1 cm [facility] Work Phone: LVOT area 4.15 cm2 [facility] Work Phone: LVOT diameter 2.3 cm [facility] Work Phone: LVOT peak diane 0.74 m/s [facility] Work Phone: MV pk E diane 1.13 m/s [facility] Work Phone: [facility] ECHO LV BIPLANE SYSTOLIC VOLUME INDEX 12.83 mL/m2 [facility] Work Phone: [facility] ECHO LV BP DIASTOLIC VOLUME INDEX 48.68 mL/m2 [facility] Work Phone: PV peak gradient 4 mmHg [facility] Work Phone: PV PK DIANE 1.03 m/s [facility] Work Phone: PW 1.2 cm [facility] Work Phone: RA area 4CH (MOD) 29.2 cm2 [facility] Work Phone: RA vol index 4CH (MOD) 44.91 mL/m2 [facility] Work Phone: Right atrium volume 4 chamber method of disks 119 [facility] Work [facility]: RV Area diastolic 25.2 cm2 [facility] Work Phone: RV Area systolic 15 cm2 [facility] Work Phone: RV basal diam 3.66 cm [facility] Work Phone: RV Fractional area change 40.5 % [facility] Work Phone: RV long diam 8.18 cm [facility] Work Phone: RV mid diam 2.18 cm [facility] Work Phone: RV S' 12.4 cm/s [facility] Work Phone: TAPSE 1.79 cm [facility] Work Phone: TR pk grad 34 mmHg [facility] Work Phone: TR pk diane 2.92 m/s [facility] Work Phone: [facility] Work Phone: Cardiac echo study Procedure on 10-17-2024 [facility] Radiology Study observation (narrative) [facility] ECHOCARDIOGRAMon 10-17-2024 Echocardiography Technically difficul t study. The left ventricular chamber size and systolic function are normal. LVEF 60-65%. Mild concentric LVH. The right ventricular chamber size and systolic function are normal. Bi-atrial enlargement. There is no hemodynamically significant valvular disease. Estimated RVSP 49 mmHg. No right to left shunt with agitated saline. Table formatting from the original result was not included. Images from the original result were not included. [facility] Facility [facility] Patient Information Patient Name Lani Zaragoza Legal Sex Male Indication for Exam Priority: Routine Dx: Hemorrhagic stroke [I61.9 (ICD-10-CM)]; BMI 50.0-59.9, adult [Z68.43 (ICD-10-CM)] Order Question Reason for Exam Stroke workup Interpretation Summary Result History is available. Technically difficult study. The left ventricular chamber size and systolic function are normal. LVEF 60-65%. Mild concentric LVH. The right ventricular chamber size and systolic function are normal. Bi-atrial enlargement. There is no hemodynamically significant valvular disease. Estimated RVSP 49 mmHg. No right to left shunt with agitated saline. Findings Left Ventricle Chamber size is normal. Increased wall thickness. Mild concentric hypertrophy. Normal global systolic function. Regional wall motion is normal. Ejection fraction is normal (60 - 65%). Diastolic function could not be determined. Right Ventricle Chamber size is normal. Systolic function is normal. Estimated right ventricular systolic pressure is 49 mmHg. Left Atrium Chamber size is enlarged. Right Atrium Chamber size is enlarged. Septum The atrial septum is normal. No evidence of patent foramen ovale determined by color flow and saline contrast. Mitral Valve Normal appearing leaflets. Leaflet mobility is normal. Trace regurgitation. No valve stenosis. Aortic Valve Trileaflet valve. Leaflet mobility is normal. No regurgitation. No stenosis. Tricuspid Valve Normal leaflets. Leaflet mobility is normal. Trace regurgitation. No stenosis. Estimated right ventricular systolic pressure is 49 mmHg. Pulmonic Valve Trace regurgitation. No stenosis. Aorta Aorta not well visualized. Pericardium No pericardial effusion. IVC/SVC The inferior vena cava is normal in size. The inferior vena cava structure is normal. The diameter is >21 mm and decreases <50% during inspiration. Reading Providers Reading Role Read Date Joel Luo MD [facility] 10/17/2024 Wall Scoring Score Index: 1.00 The left ventricular wall motion is normal. Left Heart Measurements LV - Systole LVIDD 5.6 cm IVS 1.2 cm LVIDS 3.1 cm PW 1.2 cm LV RWT 0.43 LV Mass Index 105.8 g/m2 LV EDV BP 129 mL LV ESV BP 34 mL BP EF 74 % LV stroke volume BP (ml) 95 mL LV stroke volume index BP 35.85 mL/m2 LV - Diastole MV pk E diane 1.13 m/s LV - HCM AV LVOT peak gradient 2 mmHg Left Atrium LA ESV SP 4CH (MOD) 142 mL LA ESV SP 2CH (MOD) 131 mL LA ESV BP (MOD) index 52 mL/m2 Right Heart Measurements RV - 2D RV basal diam 3.66 cm RV mid diam 2.18 cm RV long diam 8.18 cm RV Area diastolic 25.2 cm2 RV Area systolic 15 cm2 RV Fractional area change 40.5 % RV - Doppler TAPSE 1.79 cm RV S' 12.4 cm/s Right Atrium RA vol index 4CH (MOD) 44.91 mL/m2 EST RAP 15 mmHg RA area 4CH (MOD) 29.2 cm2 Great Vessels Inferior Vena Cava IVC ostium 2.93 cm Doppler Measurements - Aortic Valve Stenosis LVOT diameter 2.3 cm LVOT area 4.15 cm2 LVOT peak diane 0.74 m/s Ao peak diane 1.41 m/s AV peak gradient 8 mmHG DI (Vmax) 0.52 WALT (continuity Vmax) 2.18 cm2 WALT index (continuity Vmax) 0.82 m/s Doppler Measurements - Mitral Valve Stenosis MV pk E diane 1.13 m/s PISA-MS MV pk E diane 1.13 m/s Doppler Measurements - Tricuspid Valve Stenosis IVC ostium 2.93 cm Regurgitation TR pk diane 2.92 m/s TR pk grad 34 mmHg EST RAP 15 mmHg EST RVSP 49 mmHg Doppler Measurements - Pulmonic Valve Stenosis PV PK DIANE 1.03 m/s PV peak gradient 4 mmHg Vitals Height Weight BSA (Calculated - sq m) BP Pulse 67 Performing Staff Ramon Tucker KATTY Study Details A complete echocardiography study (including color flow Doppler, spectral Doppler, M-mode, agitated saline contrast and microbubbles) was performed. Contrast indication: evaluation of left ventricle contiguous segments and evaluation of left ventricle apex. Study limitations include poor apical window and patient body habitus. Imaging system used: [employer]. Clinical history: BMI 53.07. Bubble study performed for hemmorrhagic stroke per order. Hx atrial fibrillation on Eliquis. Indications Indications for study: str (more content not included)... Normal [facility] EXTRA MICROon 10-17-2024 [facility] HIGH SENSITIVITY TROPONIN I - SINGLE ORDERon 10-17-2024 Interpretation and review of laboratory results Normal [facility] Troponin I.cardiac High sensitivity method [Mass/Vol] 6 ng/L NINF - 53 ng/L [facility] hs-Troponin I 6 ng/L Normal <53 [facility] Comment on above: Order Comment: Acute Coronary Syndrome (ACS): Initial Evaluation and Management:[email or web address] Performed By: #### Y NTBNP #### [facility] (DEFAULT) [address] [place] [address] LACTATE, BLOODon 10-17-2024 Interpretation and review of laboratory results Normal [facility] Lactate [Moles/Vol] 1.3 mmol/L 0.5 - 1. 6 mmol/L [facility] Lactate, Blood 1.3 mmol/L Normal 0.5-1.6 [facility] Comment on above: Performed By: #### C HM7 #### [facility] (DEFAULT) [address] [place] [address] LIPID PANEL W CALCULATED LDL on 10-17-2024 Cholesterol [Mass/Vol] 165 mg/dL NINF - 200 mg/dL [facility] Cholesterol in HDL [Mass/Vol] 37 mg/dL Low 40 - PINF mg/dL [facility] Cholesterol in LDL [Mass/Vol] 105 mg/dL High 0 - 99 mg/dL [facility] Cholesterol non HDL [Mass/Vol] 128 mg/dL NINF - 130 mg/dL [facility] Cholesterol.total/Cholest medhat in HDL [Mass ratio] 4.5 {ratio} High NINF - 4.5 [facility] Interpretation and review of laboratory results Abnormal [facility] Triglyceride [Mass/Vol] 113 mg/dL NINF - 150 mg/dL [facility] LIPID PANEL WITH REFLEX TO M EASURED LDLon 10-17-2024 Cholesterol [Mass/Vol] 168 mg/dL NINF - 200 mg/dL [facility] Cholesterol in HDL [Mass/Vol] 38 mg/dL Low 40 - PINF mg/dL [facility] Cholesterol in LDL [Mass/Vol] 106 mg/dL High 0 - 99 mg/dL [facility] Cholesterol non HDL [Mass/Vol] 130 mg/dL High NINF - 130 mg/dL [facility] Cholesterol.total/Cholest medhat in HDL [Mass ratio] 4.4 {ratio} NINF - 4.5 [facility] Interpretation and review of laboratory results Abnormal [facility] Triglyceride [Mass/Vol] 119 mg/dL NINF - 150 mg/dL [facility] MAGNESIUMon 10-17-2024 Interpretation and review of laboratory results Normal [facility] Magnesium [Mass/Vol] 1.7 mg/dL 1.6 - 2 .6 mg/dL [facility] NT-PRO B-TYPE NATRIURETIC PE PTIDEon 10-17-2024 Interpretation and review of laboratory results Abnormal [facility] Natriuretic peptide.B prohormone N-Terminal IA [Mass/Vol] 962 pg/mL High NINF - 540 pg/mL [facility] Natriuretic peptide B (Bld) [Mass/Vol] 962 pg/mL High <=540 [facility] Comment on above: Performed By: #### Y NTBNP #### [facility] (DEFAULT) [address] [place] [address] No Panel Informationon 10-17 [facility] PROCALCITONINon 10-17-2024 Interpretation and review of laboratory results Normal [facility] Procalcitonin [Mass/Vol] 0.05 ng/mL TAWANA F - 0.50 ng/mL [facility] RADIOLOGY RADIOLOGY [facility] Radiology Study observation (narrative) [facility] Chest ViewsOrder ed By: Ozzy Frederick on 10-17-2024 [facility] Work Phone: Portable XR Chest ViewsOrder ed By: Mikhail Kinsey on 10-17-2024 [facility] Work Phone: SODIUMon 10-17-2024 Interpretation and review of laboratory results Normal [facility] Sodium [Moles/Vol] 140 mmol/L 135 - 145 mmol/L [facility] Sodium [Moles/Vol] 140 mmol/L Normal 135-145 [facility] Comment on above: Performed By: #### X M #### [facility] (DEFAULT) [address] [place] [address] Interpretation and review of laboratory results Normal [facility] Sodium [Moles/Vol] 138 mmol/L 135 - 145 mmol/L [facility] Sodium [Moles/Vol] 138 mmol/L Normal 135-145 [facility] Comment on above: Order Comment: While on 3% Hypertonic Saline. Performed By: #### Y NTBNP #### [facility] (DEFAULT) [address] [address] URINALYSIS REFLEX TO CULTURE PERFORMABLEon 10-17-2024 Appearance (U) Clear Clear [facility] Bacteria LM Ql (Urine sed) ABSENT ABSENT [facility] Color (U) Yellow Yellow [facility] Epithelial cells.squamous LM Ql (Urine sed) 0-2/hpf 0-2/hpf, 3-5/hpf = 1+ [facility] Glucose Test strip (U) [Mass/Vol] 500 mg/dL Abnormal Negative [facility] Interpretation and review of laboratory results Abnormal [facility] Ketones (U) [Mass/Vol] 15 mg/dL = Small Abnormal Negativ e [facility] Leukocyte esterase Test strip Ql (U) Negative Negative [facility] Nitrite Ql (U) Negative Negative [facility] pH (U) 5.5 [pH] 5.0 - 7.0 [facility] Protein (U) [Mass/Vol] 30 mg/dL Abnormal Negative [facility] RBC (U) [#/Vol] Negative Negative [facility] RBC LM.HPF (Urine sed) [#/Area] 0-2 [facility] Specific gravity (U) [Rel density] 1.025 1.001 - 1.035 [facility] Urobilinogen (U) [Mass/Vol] 0.2 E.U./dL 0.2 E.U/dL, 1.0 E.U/dL [facility] WBC LM.HPF (Urine sed) [#/Area] 0 - 5 [facility] Appearance (U) Clear Normal Clear [facility] Comment on above: Order Comment: For i ndwelling catheters, specimen collection is acceptable on catheter day 1 and 2 only. ? Performed By: #### U [id number] #### [facility] (DEFAULT) [address] [place] [address] Bacteria ABSENT Normal ABSENT [facility] Comment on above: Order Comment: For i ndwelling catheters, specimen collection is acceptable on catheter day 1 and 2 only. ? Performed By: #### U [id number] #### [facility] (DEFAULT) [address] [place] [address] Blood Urine Negative Normal Negative [facility] Comment on above: Order Comment: For i ndwelling catheters, specimen collection is acceptable on catheter day 1 and 2 only. ? Performed By: #### U [id number] #### [facility] (DEFAULT) [address] [place] [address] Color (U) Yellow Normal Yellow [facility] Comment on above: Order Comment: For i ndwelling catheters, specimen collection is acceptable on catheter day 1 and 2 only. ? Performed By: #### U [id number] #### [facility] (DEFAULT) [address] [place] [address] Glucose Ql (U) 500 mg/dL Abnormal Negative [facility] Comment on above: Order Comment: For i ndwelling catheters, specimen collection is acceptable on catheter day 1 and 2 only. ? Performed By: #### U [id number] #### [facility] (DEFAULT) [address] [place] [address] Ketones Ql (U) 15 mg/dL = Small Abnormal Negative [facility] Comment on above: Order Comment: For i ndwelling catheters, specimen collection is acceptable on catheter day 1 and 2 only. ? Performed By: #### U [id number] #### [facility] (DEFAULT) [address] [place] [address] Leukocyte esterase Test strip Ql (U) Negative Normal Negative [facility] Comment on above: Order Comment: For i ndwelling catheters, specimen collection is acceptable on catheter day 1 and 2 only. ? Performed By: #### U [id number] #### [facility] (DEFAULT) [address] [place] [address] Nitrites Urine Negative Normal Negative [facility] Comment on above: Order Comment: For i ndwelling catheters, specimen collection is acceptable on catheter day 1 and 2 only. ? Performed By: #### U [id number] #### [facility] (DEFAULT) [address] [place] [address] pH (U) 5.5 [pH] Normal 5.0-7.0 [facility] Comment on above: Order Comment: For i ndwelling catheters, specimen collection is acceptable on catheter day 1 and 2 only. ? Performed By: #### U [id number] #### [facility] (DEFAULT) [address] [place] [address] Protein Urine 30 mg/dL Abnormal Negative [facility] Comment on above: Order Comment: For i ndwelling catheters, specimen collection is acceptable on catheter day 1 and 2 only. ? Performed By: #### U [id number] #### [facility] (DEFAULT) [address] [place] [address] RBC Urine 0-2 Normal 0-2 [facility] Comment on above: Order Comment: For i ndwelling catheters, specimen collection is acceptable on catheter day 1 and 2 only. ? Performed By: #### U [id number] #### [facility] (DEFAULT) [address] [address] Specific Stacy Urine 1.025 Normal 1.001-1.035 O [facility] Comment on above: Order Comment: For i ndwelling catheters, specimen collection is acceptable on catheter day 1 and 2 only. ? Performed By: #### U [id number] #### [facility] (DEFAULT) [address] [place] [address] Squamous/Epithelial Cells, Urine 0-2/hpf Normal 0-2/hpf, 3-5/hpf = 1+ [facility] Comment on above: Order Comment: For i ndwelling catheters, specimen collection is acceptable on catheter day 1 and 2 only. ? Performed By: #### U [id number] #### [facility] (DEFAULT) [address] [place] [address] Urobilinogen Urine 0.2 E.U./dL Normal 0.2 E.U/d L, 1.0 E.U/dL [facility] Comment on above: Order Comment: For i ndwelling catheters, specimen collection is acceptable on catheter day 1 and 2 only. ? Performed By: #### U [id number] #### [facility] (DEFAULT) [address] [place] [address] WBC Urine 0 - 5 Normal 0 - 5 [facility] Comment on above: Order Comment: For i ndwelling catheters, specimen collection is acceptable on catheter day 1 and 2 only. ? Performed By: #### U [id number] #### [facility] (DEFAULT) [address] [place] [address] VANCOMYCIN LEVEL, TROUGH (FL E DRUG LEVEL)on 10-17-2024 Interpretation and review of laboratory results Abnormal [facility] Vancomycin trough [Mass/Vol] 21.5 ug/mL High [facility] Vancom[facility], Trough 21.5 mcg/mL High Therapeut ic Range: 10.0-20.0 mcg/mL [facility] Comment on above: Order Comment: For i ndwelling catheters, specimen collection is acceptable on catheter day 1 and 2 only. ? Performed By: #### U [id number] #### [facility] (DEFAULT) [address] [place] [address] XR CHEST 1 VIEW PORTABLEon 0 10-17-2024 XR CHEST 1 VIEW PORTABLE EXAM: XR CHEST 1 VIEW PORTABLE, 10/17/2024 11:38 AM COMPARISON: XR CHEST 1 VIEW PORTABLE October 16, 2024 CLINICAL INDICATIONS: increased work of breathing FINDINGS: (Adequate technique) Implanted Devices: None Thorax: Bibasilar opacifications similar to prior exam. Unchanged bilateral interstitial thickening. No pleural effusion. No pneumothorax. Pulmonary vascular congestion. Cardiomegaly. Unchanged cardiomediastinal silhouette. No acute bone findings. IMPRESSION: Pulmonary edema is stable to worse compared to prior. I personally viewed and interpreted these images and I have reviewed and approved this report. Normal [facility] XR CHEST 1 VIEW PORTABLE EXAM: XR CHEST 1 VIEW PORTABLE, 10/16/2024 23:00 PM COMPARISON: No prior studies available for comparison. CLINICAL INDICATIONS: resp insufficiency RELEVANT CLINICAL HISTORY: FINDINGS: (Adequate technique) Implanted Devices: None Thorax: Bilateral interstitial thickening. No pneumothorax. No pleural effusion. Cardiomegaly. Findings concerning for vascular congestion. IMPRESSION: See above Normal [facility] ABORH TYPE RECONFIRMATIONon 10-16-2024 ABO/RH(D) TYPE Negative [facility] ABO/RH(D) TYPE Negative Normal [facility] Comment on above: Performed By: #### T YPEC #### [facility] (DEFAULT) [address] [place] [address] Bedside Glucoseon 10-16-2024 FINGERSTICK GLU 189 mg/dL High 74-[address] [facility] Comment on above: Result Comment: REYNA GEMENT OF PATIENT CARE PER NURSING PROTOCOL Performed By: #### L 501.080 ####[facility] [address] [place], [address] FINGERSTICK GLU 208 mg/dL High -[address] [facility] Comment on above: Result Comment: REYNA GEMENT OF PATIENT CARE PER NURSING PROTOCOL Performed By: #### L 501.080 ####[facility] [address] [place], [address] FINGERSTICK GLU 206 mg/dL High [address] [place] [address] Comment on above: Result Comment: REYNA GEMENT OF PATIENT CARE PER NURSING PROTOCOL Performed By: #### L 501.080 ####[facility] [address] [place], [address] Brain/Head without Contrasto n 10-16-2024 Brain/Head without Contrast Normal [facility] CBC AND ELECTRONIC DIFFon Basophils (Bld) [#/Vol] 0.04 10*3/uL Normal 0.00-0.09 [facility] Comment on above: Performed By: #### X M #### [facility] (DEFAULT) [address] [address] Basophils/100 WBC (Bld) 0.3 % Normal O [facility] Comment on above: Performed By: #### X M #### [facility] (DEFAULT) [address] [address] DIFF STATUS Electronic Differential Normal [facility] Comment on above: Performed By: #### X M #### [facility] (DEFAULT) [address] [place] [address] Eosinophils (Bld) [#/Vol] 0.14 10*3/uL Normal 0.00-0.4 8 [facility] Comment on above: Performed By: #### X M #### [facility] (DEFAULT) [address] [place] [address] Eosinophils/100 WBC (Bld) 1.0 % Normal [facility] Comment on above: Performed By: #### X M #### [facility] (DEFAULT) [address] [address] Hematocrit (Bld) [Volume fraction] 37.5 % Low 39.6-48.8 [facility] Comment on above: Performed By: #### X M #### [facility] (DEFAULT) [address] [address] Hemoglobin (Bld) [Mass/Vol] 12.6 g/dL Low 13.4-16.8 [facility] Comment on above: Performed By: #### X M #### [facility] (DEFAULT) [address] [address] Immature Grans % 0.4 % Normal [facility] Comment on above: Performed By: #### X M #### [facility] (DEFAULT) [address] [address] Immature Grans Absolute 0.06 K/uL Normal <=0.07 O [facility] Comment on above: Performed By: #### X M #### [facility] (DEFAULT) [address] [address] Lymphocytes (Bld) [#/Vol] 2.02 10*3/uL Normal 0.83-3.5 7 [facility] Comment on above: Performed By: #### X M #### [facility] (DEFAULT) [address] [address] Lymphocytes/100 WBC (Bld) 15.1 % Normal [facility] Comment on above: Performed By: #### X M #### [facility] (DEFAULT) [address] [place] [address] MCV (RBC) [Entitic vol] 78.9 fL Low 79.0-94.5 O [facility] Comment on above: Performed By: #### X M #### [facility] (DEFAULT) [address] [place] [address] Mean Cell Hgb 26.5 pg Normal 26.1-33.3 [facility] Comment on above: Performed By: #### X M #### [facility] (DEFAULT) [address] [place] [address] Mean Cell Hgb Conc 33.6 g/dL Normal 31.9-36.5 [facility] Comment on above: Performed By: #### X M #### [facility] (DEFAULT) [address] [place] [address] Monocytes (Bld) [#/Vol] 0.75 10*3/uL Normal 0.24-0.93 [facility] Comment on above: Performed By: #### X M #### [facility] (DEFAULT) [address] [place] [address] Monocytes/100 WBC (Bld) 5.6 % Normal O [facility] Comment on above: Performed By: #### X M #### [facility] (DEFAULT) [address] [place] [address] Nucleated RBC 0.0 /100 WBC Normal <=0.2 [facility] Comment on above: Performed By: #### X M #### [facility] (DEFAULT) [address] [place] [address] Platelet mean volume (Bld) [Entitic vol] 9.2 fL Normal 8.7-12.3 [facility] Comment on above: Performed By: #### X M #### [facility] (DEFAULT) [address] [place] [address] Platelets (Bld) [#/Vol] 307 10*3/uL Normal 146-337 [facility] Comment on above: Performed By: #### X M #### [facility] (DEFAULT) [address] [place] [address] RBC (Bld) [#/Vol] 4.75 10*6/uL Normal 4.38-5.83 [facility] Comment on above: Performed By: #### X M #### [facility] (DEFAULT) [address] [place] [address] RBC Distribution 13.2 % Normal 10.9-14.3 [facility] Comment on above: Performed By: #### X M #### [facility] (DEFAULT) [address] [place] [address] Segs + Bands Auto 77.6 % Normal [facility] Comment on above: Performed By: #### X M #### [facility] (DEFAULT) [address] [place] [address] Segs + Bands,Absolute Auto 10.38 K/uL High 1.57-6.19 [facility] Comment on above: Performed By: #### X M #### [facility] (DEFAULT) [address] [place] [address] WBC (Bld) [#/Vol] 13.39 10*3/uL High 3.73-10.10 [facility] Comment on above: Performed By: #### X M #### [facility] (DEFAULT) [address] [place] [address] CBC,PLATELETSon 10-16-2024 Erythrocyte distribution width (RBC) [Ratio] 13.2 % 10.9 - 14.3 % [facility] Hematocrit (Bld) [Volume fraction] 37 % Low 39.6 - 48.8 % [facility] Hemoglobin (Bld) [Mass/Vol] 12.6 g/dL Low 13.4 - 16.8 g/dL [facility] Interpretation and review of laboratory results Abnormal [facility] MCH (RBC) [Entitic mass] 27.1 pg 26. 1 - 33.3 pg [facility] MCHC (RBC) [Mass/Vol] 34.1 g/dL 31.9 - 36.5 g/dL [facility] MCV (RBC) [Entitic vol] 79.6 fL 79.0 - 94.5 fL [facility] Platelet mean volume (Bld) [Entitic vol] 9.2 fL 8.7 - 12.3 fL [facility] Platelets (Bld) [#/Vol] 272 10*3/uL 146 - 337 K/uL [facility] RBC (Bld) [#/Vol] 4.65 10*6/uL [facility] WBC (Bld) [#/Vol] 12.56 10*3/uL High 3.73 - 10 .10 K/uL [facility] Hematocrit (Bld) [Volume fraction] 37.0 % Low 39.6-48.8 [facility] Comment on above: Performed By: #### X M #### [facility] (DEFAULT) [address] [address] Hemoglobin (Bld) [Mass/Vol] 12.6 g/dL Low 13.4-16.8 [facility] Comment on above: Performed By: #### X M #### [facility] (DEFAULT) [address] [address] MCV (RBC) [Entitic vol] 79.6 fL Normal 79.0-94.5 O [facility] Comment on above: Performed By: #### X M #### [facility] (DEFAULT) [address] [address] Mean Cell Hgb 27.1 pg Normal 26.1-33.3 [facility] Comment on above: Performed By: #### X M #### [facility] (DEFAULT) [address] [place] [address] 9[address] Mean Cell Hgb Conc 34.1 g/dL Normal 31.9-36.5 [facility] Comment on above: Performed By: #### X M #### [facility] (DEFAULT) [address] [place] [address] Platelet mean volume (Bld) [Entitic vol] 9.2 fL Normal 8.7-12.3 [facility] Comment on above: Performed By: #### X M #### [facility] (DEFAULT) [address] [place] [address] Platelets (Bld) [#/Vol] 272 10*3/uL Normal 146-337 [facility] Comment on above: Performed By: #### X M #### [facility] (DEFAULT) [address] [place] [address]161 RBC (Bld) [#/Vol] 4.65 10*6/uL Normal 4.38-5.83 [facility] Comment on above: Performed By: #### X M #### [facility] (DEFAULT) [address] [place] [address] 49597 RBC Distribution 13.2 % Normal 10.9-14.3 [facility] Comment on above: Performed By: #### X M #### [facility] (DEFAULT) [address] [place] [address]881 WBC (Bld) [#/Vol] 12.56 10*3/uL High 3.73-10.10 [facility] Comment on above: Performed By: #### X M #### [facility] (DEFAULT) [address] [place] [address] 477[address] CHEM 7 (LYTES,BUN,CREA,GLUC) on 10-16-2024 Anion gap [Moles/Vol] 14 mmol/L 7 - 17 mmol/L [facility] Chloride [Moles/Vol] 97 mmol/L Low 98 - 10 8 mmol/L [facility] CO2 [Moles/Vol] 29 mmol/L 21 - 31 mmol/L [facility] Creatinine [Mass/Vol] 0.5 mg/dL Low 0.70 - 1.30 mg/dL [facility] eGFR, CKD-EPI, Male - PINF [facility] Glucose [Mass/Vol] 223 mg/dL High 70 - 179 mg/dL [facility] Interpretation and review of laboratory results Abnormal [facility] Osmolality Calc [Osmolality] 291 [facility] Potassium [Moles/Vol] 3.8 mmol/L 3.5 - 5.0 mmol/L [facility] Sodium [Moles/Vol] 136 mmol/L 135 - 145 mmol/L [facility] Urea nitrogen [Mass/Vol] 9 mg/dL 7 - 25 mg/d L [facility] Urea nitrogen/Creatinine [Mass ratio] 18 mg/mg [facility] Anion gap [Moles/Vol] 14 mmol/L Normal 7-17 [facility] Comment on above: Performed By: #### T YPEC #### [facility] (DEFAULT) [address] [place] [address] Chloride [Moles/Vol] 97 mmol/L Low 98-108 [facility] Comment on above: Performed By: #### T YPEC #### [facility] (DEFAULT) [address] [place] [address] CO2 [Moles/Vol] 29 mmol/L Normal 21-31 [facility] Comment on above: Performed By: #### T YPEC #### [facility] (DEFAULT) [address] [place] [address] Creatinine [Mass/Vol] 0.50 mg/dL Low 0.70-1.30 [facility] Comment on above: Performed By: #### T YPEC #### [facility] (DEFAULT) [address] [place] [address] 24910 eGFR, CKD-EPI, Male > Normal >=60 [facility] Comment on above: Result Comment: Repo rted eGFR is based on the CKD-EPI 2020 equation using creatinine, age, and sex. Performed By: #### T YPEC #### [facility] (DEFAULT) [address] [place] [address] Glucose [Mass/Vol] 223 mg/dL High Nonfastin -179 mg/dL; Fastin-99 [facility] Comment on above: Performed By: #### T YPEC #### [facility] (DEFAULT) [address] [place] [address] Osmolality [Osmolality] 291 mosm/kg Normal 278-305 [facility] Comment on above: Performed By: #### T YPEC #### [facility] (DEFAULT) [address] [place] [address] Potassium [Moles/Vol] 3.8 mmol/L Normal 3.5-5.0 [facility] Comment on above: Performed By: #### T YPEC #### [facility] (DEFAULT) [address] [place] [address] 10810 Sodium [Moles/Vol] 136 mmol/L Normal 135-145 [facility] Comment on above: Performed By: #### T YPEC #### [facility] (DEFAULT) [address] [place] [address] Urea nitrogen [Mass/Vol] 9 mg/dL Normal 7-25 [facility] Comment on above: Performed By: #### T YPEC #### [facility] (DEFAULT) [address] [place] [address]61 Urea nitrogen/Creatinine [Mass ratio] 18 mg/mg Normal [facility] Comment on above: Performed By: #### T YPEC #### [facility] (DEFAULT) [address] [place] [address] 94575 CHM 7 - EDon 10-16-2024 Anion gap [Moles/Vol] 12 mmol/L Normal 7-17 [facility] Comment on above: Performed By: #### U [id number] #### [facility] (DEFAULT) [address] [place] [address] Chloride [Moles/Vol] 99 mmol/L Normal 98-108 [facility] Comment on above: Performed By: #### U [id number] #### [facility] (DEFAULT) [address] [place] [address] CO2 [Moles/Vol] 29 mmol/L Normal 21-31 [facility] Comment on above: Performed By: #### U [id number] #### [facility] (DEFAULT) [address] [place] [address] Creatinine [Mass/Vol] 0.52 mg/dL Low 0.70-1.30 [facility] Comment on above: Performed By: #### U [id number] #### [facility] (DEFAULT) [address] [place] [address]5829 eGFR, CKD-EPI, Male > Normal >=60 [facility] Comment on above: Result Comment: Repo rted eGFR is based on the CKD-EPI 2020 equation using creatinine, age, and sex. Performed By: #### U [id number] #### [facility] (DEFAULT) [address] [place] [address] Glucose [Mass/Vol] 224 mg/dL High Nonfastin -179 mg/dL; Fastin-99 [facility] Comment on above: Performed By: #### U [id number] #### [facility] (DEFAULT) [address] [place] [address] 18776 Osmolality [Osmolality] 292 mosm/kg Normal 278-305 [facility] Comment on above: Performed By: #### U [id number] #### [facility] (DEFAULT) [address] [place] [address] Potassium [Moles/Vol] 3.8 mmol/L Normal 3.5-5.0 [facility] Comment on above: Performed By: #### U [id number] #### [facility] (DEFAULT) [address] [place] [address]2372 Sodium [Moles/Vol] 136 mmol/L Normal 135-145 [facility] Comment on above: Performed By: #### U [id number] #### [facility] (DEFAULT) [address] [place] [address] Urea nitrogen [Mass/Vol] 9 mg/dL Normal 7-25 [facility] Comment on above: Performed By: #### U [id number] #### [facility] (DEFAULT) [address] [place] [address]996 Urea nitrogen/Creatinine [Mass ratio] 17 mg/mg Normal [facility] Comment on above: Performed By: #### U [id number] #### [facility] (DEFAULT) [address] [place] [address] STROKE HEAD-STROKE ALERT ONLYon 10-16-2024 CT STROKE HEAD-STROKE ALERT ONLY EXAM: CT STROKE HEAD-STROKE ALERT ONLY, 10/16/2024 8:47 PM COMPARISON: No prior studies available for comparison. CLINICAL INDICATIONS: 69 years Male Suspected Stroke; Suspected Stroke RELEVANT CLINICAL HISTORY: TECHNIQUE: A series of transaxial computerized tomographic images are obtained from base of skull to vertex without intravenous contrast. Axial whole-head and thin section posterior fossa slices are provided. Reformats: Sagittal and coronal. FINDINGS: There is moderate multifocal left temporo-occipital parenchymal hemorrhage. Associated white matter hypoattenuation, with multifocal loss of duffy-white differentiation, predominantly localizing to the left MEASUREMENT PSYCHOLOGIST territory. This is associated with overlying sulcal effacement and mild generalized mass effect contributing to partial effacement of left lateral ventricle. There is trace intraventricular hemorrhage within the bilateral occipital horns. There is no significant midline shift. No herniation or hydrocephalus. Skull appears intact. Visualized orbits appear normal. Visualized paranasal sinuses are clear. IMPRESSION: 1. 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 2. Trace interventricular hemorrhage. 3. Localized mass effect without significant midline shift, herniation, hydrocephalus. Pulmonary results were discussed with Kristen Ramon MD at 8:57 PM on October 16, 2024. I personally viewed and interpreted these images and I have reviewed and approved this report. Normal [facility] Culture, Anaerobic Any Sourc devonte 10-16-[address] [facility] Comment on above: Performed By: #### M 100.2000, M100.4001, M100.3000 ####[facility] [id number] [place], [address] [facility] deOrdered By: Haily Santos on 10-16-2024 Glucose [Mass/Vol] 189 mg/dL High 74-106 [facility] Comment on above: MANAGEMENT OF PATIEN T CARE PER NURSING PROTOCOL HEMOGLOBIN A1Con 10-16-2024 Average glucose Estimated from glycated hemoglobin (Bld) [Mass/Vol] 255 mg/dL [facility] HbA1c (Bld) [Mass fraction] 10.5 % High 4.7 - 5.6 % [facility] Interpretation and review of laboratory results Abnormal [facility] Glucose [Mass/Vol] 255 mg/dL Normal [facility] Comment on above: Performed By: #### X M #### [facility] (DEFAULT) [address] [address] Hemoglobin A1C HPLC 10.5 % High 4.7-5.6 [facility] Comment on above: Performed By: #### X M #### [facility] (DEFAULT) [address] [address] HEPATIC FUNCTION PANELon Albumin [Mass/Vol] 3.5 g/dL Normal 3.5-5.0 [facility] Comment on above: Performed By: #### G AS5 #### [facility] (DEFAULT) [address] [address] ALP [Catalytic activity/Vol] 92 U/L Normal 32-126 [facility] Comment on above: Performed By: #### G AS5 #### [facility] (DEFAULT) [address] [place] [address] 78175 ALT [Catalytic activity/Vol] 13 U/L Normal 10-52 [facility] Comment on above: Performed By: #### G AS5 #### [facility] (DEFAULT) [address] [place] [address] 26398 AST [Catalytic activity/Vol] 14 U/L Normal 10-39 [facility] Comment on above: Performed By: #### G AS5 #### [facility] (DEFAULT) [address] [place] [address] 68100 Bilirubin [Mass/Vol] 0.6 mg/dL Normal <1.5 [facility] Comment on above: Performed By: #### G AS5 #### [facility] (DEFAULT) [address] [place] [address]205 Bilirubin.indirect [Mass/Vol] 0.2 mg/dL Normal <0.3 [facility] Comment on above: Performed By: #### Jose AS5 #### [facility] (DEFAULT) [address] [place] [address] 61632 Protein [Mass/Vol] 7.2 g/dL Normal 6.4-8.3 [facility] Comment on above: Performed By: #### G AS5 #### [facility] (DEFAULT) [address] [place] [address] HIGH SENSITIVITY TROPONIN I - SINGLE ORDERon 10-16-2024 Interpretation and review of laboratory results Normal [facility] Troponin I.cardiac High sensitivity method [Mass/Vol] 6 ng/L NINF - 53 ng/L [facility] hs-Troponin I 6 ng/L Normal <53 [facility] Comment on above: Order Comment: 2 Bot tles (1 Set - consists of 1 Aerobic bottle and 1 Anaerobic bottle) - 1st Peripheral Draw For vacutainer method draw: Fill aerobic bottle first, then anaerobic Results may be compromised due to HIGH VOLUME of the BACT\\ALERT bottle EXCEEDING 10mLs, which can be associated with increased contamination. The optimal blood volume is 8-10mLs per aerobic/anaerobic blood culture bottle. Performed By: #### B LDCULT #### [facility] (DEFAULT) [address] [place] [address] hs-Troponin I 6 ng/L Normal <53 [facility] Comment on above: Order Comment: Acute Coronary Syndrome (ACS): Initial Evaluation and Management:[email or web address]/sites/ebm/Documents/G uidelines/Acute%20Coronary%20Syndrome.pdf#[email or web address] Performed By: #### G AS5 #### [facility] (DEFAULT) [address] [place] [address] IONIZED CALCIUM, SERUMOrdere d By: Kike Hansen on 10-16-2024 Calcium.ionized (Bld) [Moles/Vol] 4.8 mg/dL 4.60 - 5.30 mg/dL [facility] Interpretation and review of laboratory results Normal [facility] IONIZED CALCIUM, SERUMon ICA 4.80 mg/dL Normal 4.60-5.30 [facility] Comment on above: Performed By: #### X M #### [facility] (DEFAULT) [address] [place] [address]140 LIPID PANEL W CALCULATED LDL on 10-16-2024 Calculated LDL Cholesterol 105 mg/dL High 0-99 [facility] Comment on above: Result Comment: [<10 0 mg/dL: Optimal] [100-129 mg/dL: Near Optimal] [130-159 mg/dL: Borderline High] [160-189 mg/dL: High] [>189 mg/dL: Very High] Performed By: #### V ANCTR #### [facility] (DEFAULT) [address] [place] [address] Cholesterol [Mass/Vol] 165 mg/dL Normal <200 [facility] Comment on above: Result Comment: [<20 0 mg/dL: Desirable] [200-239 mg/dL: Borderline High] [>239 mg/dL: High] Performed By: #### V ANCTR #### [facility] (DEFAULT) [address] [place] [address] Cholesterol in HDL [Mass/Vol] 37 mg/dL Low >=40 [facility] Comment on above: Result Comment: [<40 mg/dL: Low (High Risk)] [>59 mg/dL: High (Low Risk)] Performed By: #### V ANCTR #### [facility] (DEFAULT) [address] [place] [address] Non HDL Cholesterol 128 mg/dL Normal <130 [facility] Comment on above: Performed By: #### V ANCTR #### [facility] (DEFAULT) [address] [place] [address] 69844 Total Cholesterol/HDL Ratio 4.5 High <4.5 [facility] Comment on above: Performed By: #### V ANCTR #### [facility] (DEFAULT) [address] [place] [address] 78844 Triglyceride [Mass/Vol] 113 mg/dL Normal <150 O [facility] Comment on above: Result Comment: [<15 0 mg/dL: Desirable] [150-199 mg/dL: Borderline] [200-499 mg/dL: High] [>500 mg/dL: Very High] Performed By: #### V ANCTR #### [facility] (DEFAULT) [address] [place] [address] LIPID PANEL WITH REFLEX TO M ANIRUDH LDLon 10-16-2024 Calculated LDL Cholesterol 106 mg/dL High 0-99 [facility] Comment on above: Result Comment: [<10 0 mg/dL: Optimal] [100-129 mg/dL: Near Optimal] [130-159 mg/dL: Borderline High] [160-189 mg/dL: High] [>189 mg/dL: Very High] Performed By: #### G AS5 #### [facility] (DEFAULT) [address] [place] [address] 113[address] Cholesterol [Mass/Vol] 168 mg/dL Normal <200 [facility] Comment on above: Result Comment: [<20 0 mg/dL: Desirable] [200-239 mg/dL: Borderline High] [>239 mg/dL: High] Performed By: #### G AS5 #### [facility] (DEFAULT) [address] [place] [address] 26930 Cholesterol in HDL [Mass/Vol] 38 mg/dL Low >=40 [facility] Comment on above: Result Comment: [<40 mg/dL: Low (High Risk)] [>59 mg/dL: High (Low Risk)] Performed By: #### Jose AS5 #### [facility] (DEFAULT) [address] [place] [address] 93345 Non HDL Cholesterol 130 mg/dL High <130 [facility] Comment on above: Performed By: #### Jose AS5 #### [facility] (DEFAULT) [address] [place] [address]30 Total Cholesterol/HDL Ratio 4.4 Normal <4.5 [facility] Comment on above: Performed By: #### Jose AS5 #### [facility] (DEFAULT) [address] [place] [address] 99377 Triglyceride [Mass/Vol] 119 mg/dL Normal <150 O [facility] Comment on above: Result Comment: [<15 0 mg/dL: Desirable] [150-199 mg/dL: Borderline] [200-499 mg/dL: High] [>500 mg/dL: Very High] Performed By: #### Jose AS5 #### [facility] (DEFAULT) [address] [place] [address] MAGNESIUMon 10-16-2024 Magnesium [Mass/Vol] 1.6 mg/dL 1.6 - 2 .6 mg/dL [facility] Magnesium [Mass/Vol] 1.6 mg/dL Normal 1.6-2.6 [facility] Comment on above: Performed By: #### T YPEC #### [facility] (DEFAULT) [address] [place] [address] Magnesium [Mass/Vol] 1.7 mg/dL Normal 1.6-2.6 [facility] Comment on above: Performed By: #### G AS5 #### [facility] (DEFAULT) [address] [place] [address] No Panel Informationon 10-16 Interpretation and review of laboratory results Normal [facility] PHOSPHATE, INORGANICon 10-16 Phosphate [Mass/Vol] 3 mg/dL 2.2 - 4 .6 mg/dL [facility] Phosphorous 3.0 mg/dL Normal 2.2-4.6 [facility] Comment on above: Performed By: #### T YPEC #### [facility] (DEFAULT) [address] [place] [address] PROCALCITONINon 10-16-2024 Procalcitonin 0.05 ng/mL Normal <0.50 [facility] Comment on above: Result Comment: Proc alcitonin is an FDA-approved assay to help manage antibiotic treatment in patients with sepsis/septic shock and lower respiratory tract infections. Specifically, trending procalcitonin in these situations can be used to reduce the duration of antibiotics. Please refer to the Procalcitonin Guide on the Antimicrobial Stewardship Webpage for more guidance on how to use and trend procalcitonin in various clinical settings. [email or web address].[email or web address]/departments/Pharmacy/_[email or web address] /WopiFrame.aspx?sourcedoc=/departments/Pharmacy/Documents/GD LProcalcitonin.docx&action=default&DefaultItemOpen=1 Two common cutoffs associated with bacterial infections are as follows. Respiratory tract infections: >0.25 ng/mL Sepsis/septic shock: >0.5 ng/mL Procalcitonin should not be used alone as a diagnostic tool, however. All procalcitonin results should be interpreted in association with the patients clinical condition and all laboratory findings. Performed By: #### V ANCTR #### [facility] (DEFAULT) [address] [address] PTINR-STROKEon 10-16-2024 INR Coag (PPP) [Relative time] 1.1 {INR} Normal 0.9-1.1 [facility] Comment on above: Performed By: #### C HM7 #### [facility] (DEFAULT) [address] [place] [address] PT Coag (PPP) [Time] 14.5 s High 11.9-14.2 [facility] Comment on above: Performed By: #### C HM7 #### [facility] (DEFAULT) [address] [place] [address] PTTon 10-16-2024 aPTT Coag (Bld) [Time] 33.6 s Normal 24.0-34.3 [facility] Comment on above: Performed By: #### C HM7 #### [facility] (DEFAULT) [address] [place] [address] Portable XR Chest Viewson Radiology Study observation (narrative) [facility] TYPE AND SCREENon 10-16-2024 ABO/RH(D) TYPE Negative Normal [facility] Comment on above: Performed By: #### X M #### [facility] (DEFAULT) [address] [place] [address] Specimen Expiration 10/19/2024 23:59 Normal [facility] Comment on above: Performed By: #### X M #### [facility] (DEFAULT) [address] [place] [address] URINALYSIS REFLEX TO CULTURE PERFORMABLEon 10-16-2024 Appearance (U) Clear Clear [facility] Bacteria LM Ql (Urine sed) ABSENT ABSENT [facility] Color (U) Yellow Yellow [facility] Epithelial cells.squamous LM Ql (Urine sed) 0-2/hpf 0-2/hpf, 3-5/hpf = 1+ [facility] Glucose Test strip (U) [Mass/Vol] 250 mg/dL Abnormal Negative [facility] Interpretation and review of laboratory results Abnormal [facility] Ketones (U) [Mass/Vol] 40 mg/dL = Moderate Abnormal Nega tive [facility] Leukocyte esterase Test strip Ql (U) Negative Negative [facility] Nitrite Ql (U) Negative Negative [facility] pH (U) 5.5 [pH] 5.0 - 7.0 [facility] Protein (U) [Mass/Vol] 30 mg/dL Abnormal Negative [facility] RBC (U) [#/Vol] Negative Negative [facility] RBC LM.HPF (Urine sed) [#/Area] 3-5 Abnormal [facility] Specific gravity (U) [Rel density] 1.018 1.001 - 1.035 [facility] Urobilinogen (U) [Mass/Vol] 0.2 E.U./dL 0.2 E.U/dL, 1.0 E.U/dL [facility] WBC LM.HPF (Urine sed) [#/Area] 6 - 10 Abnormal [facility] Center Appearance (U) Clear Normal Clear [facility] Comment on above: Order Comment: For i ndwelling catheters, specimen collection is acceptable on catheter day 1 and 2 only. ? Performed By: #### X M #### [facility] (DEFAULT) [address] [place] [address] Bacteria ABSENT Normal ABSENT [facility] Comment on above: Order Comment: For i ndwelling catheters, specimen collection is acceptable on catheter day 1 and 2 only. ? Performed By: #### X M #### [facility] (DEFAULT) [address] [place] [address] Blood Urine Negative Normal Negative [facility] Comment on above: Order Comment: For i ndwelling catheters, specimen collection is acceptable on catheter day 1 and 2 only. ? Performed By: #### X M #### [facility] (DEFAULT) [address] [address] Color (U) Yellow Normal Yellow [facility] Comment on above: Order Comment: For i ndwelling catheters, specimen collection is acceptable on catheter day 1 and 2 only. ? Performed By: #### X M #### [facility] (DEFAULT) [address] [place] [address] Glucose Ql (U) 250 mg/dL Abnormal Negative [facility] Comment on above: Order Comment: For i ndwelling catheters, specimen collection is acceptable on catheter day 1 and 2 only. ? Performed By: #### X M #### [facility] (DEFAULT) [address] [place] [address] Ketones Ql (U) 40 mg/dL = Moderate Abnormal Negative O [facility] Comment on above: Order Comment: For i ndwelling catheters, specimen collection is acceptable on catheter day 1 and 2 only. ? Performed By: #### X M #### [facility] (DEFAULT) [address] [place] [address] Leukocyte esterase Test strip Ql (U) Negative Normal Negative [facility] Comment on above: Order Comment: For i ndwelling catheters, specimen collection is acceptable on catheter day 1 and 2 only. ? Performed By: #### X M #### [facility] (DEFAULT) [address] [place] [address] Nitrites Urine Negative Normal Negative [facility] Comment on above: Order Comment: For i ndwelling catheters, specimen collection is acceptable on catheter day 1 and 2 only. ? Performed By: #### X M #### [facility] (DEFAULT) [address] [place] [address] pH (U) 5.5 [pH] Normal 5.0-7.0 [facility] Comment on above: Order Comment: For i ndwelling catheters, specimen collection is acceptable on catheter day 1 and 2 only. ? Performed By: #### X M #### [facility] (DEFAULT) [address] [place] [address] Protein Urine 30 mg/dL Abnormal Negative [facility] Comment on above: Order Comment: For i ndwelling catheters, specimen collection is acceptable on catheter day 1 and 2 only. ? Performed By: #### X M #### [facility] (DEFAULT) [address] [place] [address] RBC Urine 3-5 Abnormal 0-2 [facility] Comment on above: Order Comment: For i ndwelling catheters, specimen collection is acceptable on catheter day 1 and 2 only. ? Performed By: #### X M #### [facility] (DEFAULT) [address] [address] Specific Stacy Urine 1.018 Normal 1.001-1.035 O [facility] Comment on above: Order Comment: For i ndwelling catheters, specimen collection is acceptable on catheter day 1 and 2 only. ? Performed By: #### X M #### [facility] (DEFAULT) [address] [address] Squamous/Epithelial Cells, Urine 0-2/hpf Normal 0-2/hpf, 3-5/hpf = 1+ [facility] Comment on above: Order Comment: For i ndwelling catheters, specimen collection is acceptable on catheter day 1 and 2 only. ? Performed By: #### X M #### [facility] (DEFAULT) [address] [address] Urobilinogen Urine 0.2 E.U./dL Normal 0.2 E.U/d L, 1.0 E.U/dL [facility] Comment on above: Order Comment: For i ndwelling catheters, specimen collection is acceptable on catheter day 1 and 2 only. ? Performed By: #### X M #### [facility] (DEFAULT) [address] [address] WBC Urine 6 - 10 Abnormal 0 - 5 [facility] Comment on above: Order Comment: For i ndwelling catheters, specimen collection is acceptable on catheter day 1 and 2 only. ? Performed By: #### X M #### [facility] (DEFAULT) [address] [address] URINE DRUG SCREEN 10-16 Amphetamine/Methamphetami ne Not detected Normal Cutoff: 500 ng/mL [facility] Comment on above: Order Comment: For m edical purposes only. Positive results are unconfirmed unless otherwise noted. Performed By: #### C HM7 #### [facility] (DEFAULT) [address] [address] Barbiturates Not detected Normal Cutoff: 200 ng/mL [facility] Comment on above: Order Comment: For m edical purposes only. Positive results are unconfirmed unless otherwise noted. Performed By: #### C HM7 #### [facility] (DEFAULT) [address] [address] Benzodiazepines Positive Abnormal Cutoff: 200 ng/mL [facility] Comment on above: Order Comment: For edical purposes only. Positive results are unconfirmed unless otherwise noted. Performed By: #### C HM7 #### [facility] (DEFAULT) [address] [address] Buprenorphine Not detected Normal Cutoff: 5 ng/mL [facility] Comment on above: Order Comment: For edical purposes only. Positive results are unconfirmed unless otherwise noted. Performed By: #### C HM7 #### [facility] (DEFAULT) [address] [address] Cannabinoids Screen Ql (U) Not detected Normal Cutoff: 50 ng/mL [facility] Comment on above: Order Comment: For edical purposes only. Positive results are unconfirmed unless otherwise noted. Performed By: #### C HM7 #### [facility] (DEFAULT) [address] [address] Cocaine Not detected Normal Cutoff: 150 ng/mL [facility] Comment on above: Order Comment: For m edical purposes only. Positive results are unconfirmed unless otherwise noted. Performed By: #### C HM7 #### [facility] (DEFAULT) [address] [address] Fentanyl Not detected Normal Cutoff: 1 ng/mL [facility] Comment on above: Order Comment: For edical purposes only. Positive results are unconfirmed unless otherwise noted. Performed By: #### C HM7 #### [facility] (DEFAULT) [address] [address] Methadone Not detected Normal Cutoff: 300 ng/mL [facility] Comment on above: Order Comment: For m edical purposes only. Positive results are unconfirmed unless otherwise noted. Performed By: #### C HM7 #### [facility] (DEFAULT) [address] [place] [address] Opiates Not detected Normal Cutoff: 300 ng/mL [facility] Comment on above: Order Comment: For m edical purposes only. Positive results are unconfirmed unless otherwise noted. Performed By: #### C HM7 #### [facility] (DEFAULT) [address] [place] [address] Oxycodone Positive Abnormal Cutoff: 100 ng/mL [facility] Comment on above: Order Comment: For m edical purposes only. Positive results are unconfirmed unless otherwise noted. Performed By: #### C HM7 #### [facility] (DEFAULT) [address] [place] [address] Absolute lymphocyte countOrd ered By: Teja Avendano on 10-15-2024 Lymphocytes Auto (Unsp spec) [#/Vol] 1.38 10*3/uL 0.83-4.[address] [facility] Absolute neutrophil countOrd ered By: Teja Avendano on 10-15-2024 Neutrophils (Bld) [#/Vol] 6.6 10*3/uL 2.0-7.[address] [facility] Anaerobic cultureOrdered By: Ramon Garcia on 10-15-2024 Bacteria identified Anaer cx Nom (Unsp spec) No anaerobic bacteria isolated. [facility] Anion gap in Serum or Plasma Ordered By: Ozzy Cabrera on 10-15-2024 Anion gap [Moles/Vol] 8 mmol/L 5-15 [facility] Automated lymphocyte count a s percentage of total leukocytesOrdered By: Teja Avendano on 10-15-2024 Lymphocytes/100 WBC Auto (Unsp spec) 16.0 % Low 19-[address] [facility] BUN/creatinine ratioOrdered By: Ozzy Cabrera on 10-15-2024 Urea nitrogen/Creatinine [Mass ratio] 19.4 mg/mg 10-[address] [facility] Basic Metabolic Profile (BMP )on 10-15-2024 BUN/CRE 19.4 RATIO Normal 10-[address] [facility] Comment on above: Performed By: #### L 500.2500 ####[facility] [address] [place], [address] Calcium [Mass/Vol] 8.9 mg/dL Normal 7.6-11.0 [facility] Comment on above: Performed By: #### L 500.2500 ####[facility] [address] [place], [address] Chloride [Moles/Vol] 101 mmol/L Normal 98-108 [facility] Comment on above: Performed By: #### L 500.2500 ####[facility] [address] [place], [address] CO2 [Moles/Vol] 26.1 mmol/L Normal 21.0-32.[address] [facility] Comment on above: Performed By: #### L 500.2500 ####[facility] [address] [place], [address] Creatinine [Mass/Vol] 0.58 mg/dL Low 0.70-1.20 [facility] Comment on above: Performed By: #### L 500.2500 ####[facility] [address] [place], [address] ECRCL 126.34 ml/min Normal 50-[address] [facility] Comment on above: Performed By: #### L 500.2500 ####[facility] [address] [place], [address] GAP 8 Normal 5-[address] [facility] Comment on above: Performed By: #### L 500.2500 ####[facility] [address] [place], [address] GFR/1.73 sq M.predicted among non-blacks MDRD (S/P/Bld) [Vol rate/Area] 105 mL/min/{1.73_m2} Normal >60 [facility] Comment on above: Result Comment: mL/m in/1.73m2 CKD-EPI Creatinine Equation (2020) Performed By: #### L 500.2500 ####[facility] [address] [place], [address] Glucose [Mass/Vol] 260 mg/dL High 70-99 [facility] Comment on above: Performed By: #### L 500.2500 ####[facility] [address] [place], [address] Potassium [Moles/Vol] 4.5 mmol/L Normal 3.3-5.1 [facility] Comment on above: Performed By: #### L 500.2500 ####[facility] [address] [place], [address] Sodium [Moles/Vol] 136 mmol/L Normal 133-145 [facility] Comment on above: Performed By: #### L 500.2500 ####[facility] [address] [place], [address] Urea nitrogen [Mass/Vol] 11 mg/dL Normal 4-[address] [facility] Comment on above: Performed By: #### L 500.2500 ####[facility] [address] [place], [address] Basophil percentageOrdered B y: Teja Avendano on 10-15-2024 Basophils/100 WBC (Bld) 0.6 % 0-1 [facility] Bedside Glucoseon 10-15-2024 FINGERSTICK GLU 181 mg/dL High 74-[address] [facility] Comment on above: Result Comment: REYNA GEMENT OF PATIENT CARE PER NURSING PROTOCOL Performed By: #### L 501.080 ####[facility] [address] [place], [address] FINGERSTICK GLU 195 mg/dL High 74-[address] [facility] Comment on above: Result Comment: REYNA GEMENT OF PATIENT CARE PER NURSING PROTOCOL Performed By: #### L 501.080 ####[facility] [address] [place], [address] FINGERSTICK GLU 201 mg/dL High 74-[address] [facility] Comment on above: Result Comment: REYNA GEMENT OF PATIENT CARE PER NURSING PROTOCOL Performed By: #### L 501.080 ####[facility] [address] [place], [address] FINGERSTICK GLU 202 mg/dL High 74-[address] [facility] Comment on above: Result Comment: REYNA GEMENT OF PATIENT CARE PER NURSING PROTOCOL Performed By: #### L 501.080 ####[facility] [address] [place], [address] CBC W/Diff, Automatedon 09-19 Absolute Lymph 1.38 X10 3/uL Normal 0.83-4.[address] [facility] Comment on above: Performed By: #### L 100.0100 ####[facility] [address] [place], [address] Absolute Neut 6.6 X10 3/uL Normal 2.0-7.[address] [facility] Comment on above: Performed By: #### L 100.0100 ####[facility] [address] [place], [address] Basophils/100 WBC (Bld) 0.6 % Normal 0-1 [facility] Comment on above: Performed By: #### L 100.0100 ####[facility] [address] [place], [address] Eosinophils/100 WBC (Bld) 1.8 % Normal 0-[address] [facility] Comment on above: Performed By: #### L 100.0100 ####[facility] [address] [place], [address] Erythrocyte distribution width (RBC) [Ratio] 13.0 % Normal 11.6-14.[address] [facility] Comment on above: Performed By: #### L 100.0100 ####[facility] [address] [place], [address] Hematocrit (Bld) [Volume fraction] 33.9 % Low 40-[address] [facility] Comment on above: Performed By: #### L 100.0100 ####[facility] [address] [place], [address] Hemoglobin (Bld) [Mass/Vol] 11.4 g/dL Low 13.0-16.[address] [facility] Comment on above: Performed By: #### L 100.0100 ####[facility] [address] [place], [address] IG% 0.600 Normal 0.0-0.[address] [facility] Comment on above: Result Comment: IG% - Immature Granulocytes (promyelocytes, myelocytes andmetamyelocytes) > 1% indicates that a LEFT SHIFT is Present. Performed By: #### L 100.0100 ####[facility] [address] [place], [address] Lymphocytes/100 WBC (Bld) 16.0 % Low 19-[address] [facility] Comment on above: Performed By: #### L 100.0100 ####[facility] [address] [place], [address] MCH (RBC) [Entitic mass] 27.0 pg Normal 27.0-32.[address] [facility] Comment on above: Performed By: #### L 100.0100 ####[facility] [address] [place], [address] MCHC (RBC) [Mass/Vol] 33.6 g/dL Normal 32-36 [facility] Comment on above: Performed By: #### L 100.0100 ####[facility] [address] [place], [address] MCV (RBC) [Entitic vol] 80.3 fL Normal 80-94 [facility] Comment on above: Performed By: #### L 100.0100 ####[facility] [address] [place], [address] Monocytes/100 WBC (Bld) 4.5 % Normal 0-10 [facility] Comment on above: Performed By: #### L 100.0100 ####[facility] [address] [place], [address] Neutrophils/100 WBC (Bld) 76.5 % High 47-[address] [facility] Comment on above: Performed By: #### L 100.0100 ####[facility] [address] [place], [address] Nucleated RBC (Bld) [#/Vol] 0 10*3/uL Normal 0-[address] [facility] Comment on above: Performed By: #### L 100.0100 ####[facility] [address] [place], [address] Platelet mean volume (Bld) [Entitic vol] 9.4 fL Normal 6.2-12.[address] [facility] Comment on above: Performed By: #### L 100.0100 ####[facility] [address] [place], [address] Platelets (Bld) [#/Vol] 248 10*3/uL Normal 150-[address] [facility] Comment on above: Performed By: #### L 100.0100 ####[facility] [address] [place], [address] RBC (Bld) [#/Vol] 4.22 10*6/uL Low 4.6-6.2 [facility] Comment on above: Performed By: #### L 100.0100 ####[facility] [address] [place], [address] RDW SD 36.9 fl Normal 35.1-43.[address] [facility] Comment on above: Performed By: #### L 100.0100 ####[facility] [address] [place], [address] WBC (Bld) [#/Vol] 8.7 10*3/uL Normal 4.4-11.0 [facility] Comment on above: Performed By: #### L 100.0100 ####[facility] [address] [place], [address] Calcaneus min 2 Viewson 09-19 Calcaneus min 2 Views Normal [facility] Carbon dioxide, total [Moles /volume] in Central venous bloodOrdered By: Ozzy Cabrera on 10-15-2024 CO2 [Moles/Vol] 26.1 mmol/L 21.0-32.[address] [facility] Chloride assayOrdered By: Olimpia Cabrera on 10-15-2024 Chloride [Moles/Vol] 101 mmol/L 98-108 [facility] Eosinophil percentageOrdered By: Teja Avendano on 10-15-2024 Eosinophils/100 WBC (Bld) 1.8 % 0-[address] [facility] Erythrocyte distribution wid th ratioOrdered By: Teja Avendano on 10-15-2024 Erythrocyte distribution width (RBC) [Ratio] 13.0 % 11.6-14.[address] [facility] Erythrocyte distribution wid th standard deviationOrdered By: Teja Avendano on 10-15-2024 Erythrocyte distribution width (RBC) [Ratio] 36.9 fl 35.1-43.[address] [facility] Glomerular filtration rate ( GFR) estimation/1.73 sq m using serum, plasma, or whole bOrdered By: Ozzy Cabrera on 10-15-2024 GFR/1.73 sq M.predicted among non-blacks MDRD (S/P/Bld) [Vol rate/Area] 105 mL/min/{1.73_m2} >60 [facility] Comment on above: mL/min/1.73m2 CKD-EP I Creatinine Equation (2020) Gram Stainon 10-15-2024 GS NO COLLECTION INFO GIVEN UNK UNK CALCANEAL BONE COLLECTED IN OR Gram Stain 1+ White Blood Cells 1+ Red Blood Cells No organisms seen Normal [facility] Comment on above: Performed By: #### M 100.2000, M100.3000, M100.4001 ####[facility] [address] [place], [address] Gram stainOrdered By: Ramon Garcia on 10-15-2024 Microscopic observation Gram stain Nom (Unsp spec) [facility] Hematocrit Auto (Bld) [Volum e fraction]Ordered By: Tjea Avendano on 10-15-2024 Hematocrit (Bld) [Volume fraction] 33.9 % Low 40-[address] [facility] Hemoglobin measurementOrdere d By: Teja Avendano on 10-15-2024 Hemoglobin (Bld) [Mass/Vol] 11.4 g/dL Low 13.0-16.[address] [facility] Immature granulocytes/100 WB C Auto (Bld)Ordered By: Teja Avendano on 10-15-2024 Immature granulocytes/100 WBC (Bld) 0.600 % 0.0-0.[address] [facility] Comment on above: IG% - Immature Granu locytes (promyelocytes, myelocytes and metamyelocytes) > 1% indicates that a LEFT SHIFT is Present. MCV (mean corpuscular volume ) determinationOrdered By: Teja Avendano on 10-15-2024 MCV (RBC) [Entitic vol] 80.3 fL 80-94 [facility] MR/POSTOP.ANEon 10-15-2024 MR/POSTOP.ANE Normal [facility] MR/[id number] 10-15-2024 MR/POSTOPAN2 Normal [facility] Mean corpuscular hemoglobin (MCH) determinationOrdered By: Teja Avendano on 10-15-2024 MCH (RBC) [Entitic mass] 27.0 pg 27.0-32.[address] [facility] Mean corpuscular hemoglobin concentration (MCHC) determinationOrdered By: Teja Avendano on 10-15-2024 MCHC (RBC) [Mass/Vol] 33.6 g/dL 32-36 [facility] Mean platelet volume determi nationOrdered By: Teja Avendano on 10-15-2024 Platelet mean volume (Bld) [Entitic vol] 9.4 fL 6.2-12.[address] [facility] Monocyte percentageOrdered B y: Teja Avendano on 10-15-2024 Monocytes/100 WBC (Bld) 4.5 % 0-10 [facility] Neutrophil percentageOrdered By: Teja Avendano on 10-15-2024 Neutrophils/100 WBC (Bld) 76.5 % High 47-[address] [facility] Nucleated red blood cell per centageOrdered By: Teja Avendano on 10-15-2024 Nucleated RBC/100 WBC (Bld) [Ratio] 0 % 0-[address] [facility] Operative Reporton Operative Report Normal [facility] Platelet countOrdered By: Ruben Avendano on 10-15-2024 Platelets (Bld) [#/Vol] 248 10*3/uL 150-[address] [facility] Potassium measurement (mass/ volume)Ordered By: Ozzy Cabrera on 10-15-2024 Potassium (Unsp spec) [Mass/Vol] 4.5 mmol/L 3.3-5.[address] [facility] RBC Auto (Bld) [#/Vol]Ordere d By: Teja Avendano on 10-15-2024 RBC (Bld) [#/Vol] 4.22 10*6/uL Low 4.6-6.2 [facility] Serum creatinine measurement (mass/volume)Ordered By: Ozzy Cabrera on 10-15-2024 Creatinine [Mass/Vol] 0.58 mg/dL Low 0.70-1.20 [facility] Serum glucose measurement (m ass/volume)Ordered By: Ozzy Cabrera on 10-15-2024 Glucose [Mass/Vol] 260 mg/dL High 70-99 [facility] Serum or plasma calcium everardo urement (mass/volume)Ordered By: Ozzy Cabrera on 10-15-2024 Calcium [Mass/Vol] 8.9 mg/dL 7.6-11.0 [facility] Serum or plasma urea nitroge n measurement (mass/volume)Ordered By: Ozzy Cabrera on 10-15-2024 Urea nitrogen [Mass/Vol] 11 mg/dL 4-[address] [facility] Sodium levelOrdered By: Ozzy Cabrera on 10-15-2024 Sodium [Moles/Vol] 136 mmol/L 133-145 [facility] Trough vancomycin levelOrder ed By: Ozzy Cabrera on 10-15-2024 Vancomycin trough [Mass/Vol] 21.7 ug/mL High 5.0-15.[address] [facility] Comment on above: Recommended goal tro ugh ranges are generally 10-15 mcg/ml for less severe/complicated infections such as cellulitis or UTI and 15-20 mcg/ml for more severe/complicated infections such as bacteremia/sepsis, osteomyelitis, pneumonia or meningitis. Goal trough ranges should take into account indication, patient-specific factors and organism REUBEN.VANCOMYCIN STANDARED DRUG THERAPY TROUGH LEVEL: 5.0 - 15.0 mg/L VANCOMYCIN HIGH INTENSITY THERAPY TROUGH LEVEL: 15.0 - 20.0 mg/L High Intensity therapy recommended for serious lifethreatening infections include:- Uxqlandsvo-Lqeyexkfmyrk-Ryoiahgzg (Ventilator/Healtcare Associated)-Sepsis PLEASE CONTACT PHARMACY SERVICES (#1257) FOR INTERPRETATIONOF RESULTS. Vancomycin, Trough Levelon 0 10-15-2024 VANCO, TROUGH 21.7 ug/mL High 5.0-15.[address] [facility] Comment on above: Order Comment: Comme nts: DRAW 30 MIN PRIOR TO [id number] Result Comment: [place] mmended goal trough ranges are generally 10-15 mcg/mlfor less severe/complicated infections such as cellulitisor UTI and 15-20 mcg/ml for more severe/complicatedinfections such as bacteremia/sepsis, osteomyelitis,pneumonia or meningitis. Goal trough ranges should takeinto account indication, patient-specific factors andorganism REUBEN.VANCOMYCIN STANDARED DRUG THERAPY TROUGH LEVEL: 5.0 - 15.0 mg/LVANCOMYCIN HIGH INTENSITY THERAPY TROUGH LEVEL: 15.0 - 20.0 mg/LHigh Intensity therapy recommended for serious lifethreatening infections include:- Xdvdgyxqat-Pxrhonpprxym-Aovrehvty (Ventilator/Healtcare Associated)-SepsisPLEASE CONTACT PHARMACY SERVICES (#8665) FOR INTERPRETATIONOF RESULTS. Performed By: #### L 501.8820 ####[facility] [address] [place], [place], [id number] White blood cell (WBC) count Ordered By: Teja Avendano on 10-15-2024 WBC (Bld) [#/Vol] 8.7 10*3/uL 4.4-11.0 [facility] Bedside Glucoseon 10-14-2024 FINGERSTICK GLU 260 mg/dL [address] Comment on above: Result Comment: REYNA GEMENT OF PATIENT CARE PER NURSING PROTOCOL Performed By: #### L 501.080 ####[facility] [address] [place], [address] FINGERSTICK GLU 250 mg/dL [address] Comment on above: Result Comment: REYNA GEMENT OF PATIENT CARE PER NURSING PROTOCOL Performed By: #### L 501.080 ####[facility] [address] [place], [address] FINGERSTICK GLU 279 mg/dL [address] Comment on above: Result Comment: REYNA GEMENT OF PATIENT CARE PER NURSING PROTOCOL Performed By: #### L 501.080 ####[facility] [address] [place], [address] FINGERSTICK GLU 178 mg/dL [address] Comment on above: Result Comment: REYNA GEMENT OF PATIENT CARE PER NURSING PROTOCOL Performed By: #### L 501.080 ####[facility] [address] [place], [address] Wound Cultureon 10-14-[address] [facility] Comment on above: Performed By: #### M 100.2000, M100.4001, M100.3000 ####[facility] [address] [place], [place], [address] Bedside Glucoseon 10-13-2024 FINGERSTICK GLU 260 mg/dL [address] Comment on above: Result Comment: REYNA GEMENT OF PATIENT CARE PER NURSING PROTOCOL Performed By: #### L 501.080 ####[facility] [address] [place], [address] FINGERSTICK GLU 297 mg/dL High 74-[address] [facility] Comment on above: Result Comment: REYNA GEMENT OF PATIENT CARE PER NURSING PROTOCOL Performed By: #### L 501.080 ####[facility] [address] [place], [address] FINGERSTICK GLU 242 mg/dL High 74-[address] [facility] Comment on above: Result Comment: REYNA GEMENT OF PATIENT CARE PER NURSING PROTOCOL Performed By: #### L 501.080 ####[facility] [address] [place], [address] FINGERSTICK GLU 253 mg/dL High 74-[address] [facility] Comment on above: Result Comment: REYNA GEMENT OF PATIENT CARE PER NURSING PROTOCOL Performed By: #### L 501.080 ####[facility] [address] [place], [address] Culture, Anaerobic Any Sourc devonte 10-13-2024 CUAN #1 RIGHT HEEL WND (BONE) UNK UNK No anaerobic bacteria isolated. Normal [facility] Comment on above: Performed By: #### M 100.3000, .1999, ####[facility] [address] [place], [address] CUAN SWAB SPECIMENS AEROB IC 4, ANAEROBIC 5- R HEEL WOUND UNK UNK No anaerobic bacteria isolated. Normal [facility] Comment on above: Performed By: #### M 100.4001, M100.2999, ####[facility] [address] [place], [address] [facility] Comment on above: Performed By: #### M 100.3000, .1999, 4001 ####[facility] [address] [place], [address] Serum Creatinine AND GFRon 0 10-13-2024 Creatinine [Mass/Vol] 0.64 mg/dL Low 0.70-1.20 [facility] Comment on above: Order Comment: Comme nts: PLEASE DO WITH THE VANC TROUGH Performed By: #### L 501.1105 ####[facility] [address] [place], [address] ECRCL 126.34 ml/min Normal 50-[address] [facility] Comment on above: Order Comment: Comme nts: PLEASE DO WITH THE VANC TROUGH Performed By: #### L 501.1105 ####[facility] [address] [place], [address] GFR/1.73 sq M.predicted among non-blacks MDRD (S/P/Bld) [Vol rate/Area] 102 mL/min/{1.73_m2} Normal >60 [facility] Comment on above: Order Comment: Comme nts: PLEASE DO WITH THE VANC TROUGH Result Comment: mL/m in/1.73m2 CKD-EPI Creatinine Equation (2020) Performed By: #### L 501.1105 ####[facility] [address] [place], [address] Serum or plasma vancomycin m easurement (mass/volume)Ordered By: Shaan Hurst on 10-13-2024 Vancomycin [Mass/Vol] 17.6 ug/mL High 0.0-15.0 [facility] Comment on above: VANCOMYCIN STANDARD DRUG THERAPY: CRITICAL VALUE IS > 15.0 mg/L VANCOMYCIN HIGH INTENSITY THERAPY: CRITICAL VALUE IS > 20.0 mg/L PLEASE CONTACT PHARMACY SERVICES (#1049) FOR INTERPRETATIONOF RESULTS. THIS RESULT DOES NOT REPRESENT A PEAK OR TROUGHLEVEL FOR THIS DRUG. Vancomycin, Random Levelon 0 10-13-2024 VANCO, RANDOM 17.6 ug/mL High 0.0-15.[address] [facility] Comment on above: Result Comment: VANC OMYCIN STANDARD DRUG THERAPY: CRITICAL VALUE IS > 15.0 mg/LVANCOMYCIN HIGH INTENSITY THERAPY: CRITICAL VALUE IS > 20.0 mg/LPLEASE CONTACT PHARMACY SERVICES (#8918) FOR INTERPRETATIONOF RESULTS. THIS RESULT DOES NOT REPRESENT A PEAK OR TROUGHLEVEL FOR THIS DRUG. Performed By: #### L 501.8850 ####[facility] [address] [place], [address] Vancomycin, Trough Levelon 0 10-13-2024 VANCO, TROUGH 23.8 ug/mL High 5.0-15.[address] [facility] Comment on above: Order Comment: Comme nts: Trough to be drawn 30 mins prior to scheduled [id number] Result Comment: Milton mmended goal trough ranges are generally 10-15 mcg/mlfor less severe/complicated infections such as cellulitisor UTI and 15-20 mcg/ml for more severe/complicatedinfections such as bacteremia/sepsis, osteomyelitis,pneumonia or meningitis. Goal trough ranges should takeinto account indication, patient-specific factors andorganism REUBEN.VANCOMYCIN STANDARED DRUG THERAPY TROUGH LEVEL: 5.0 - 15.0 mg/LVANCOMYCIN HIGH INTENSITY THERAPY TROUGH LEVEL: 15.0 - 20.0 mg/LHigh Intensity therapy recommended for serious lifethreatening infections include:- Bkzbfwpdrs-Hdmtndgqduhm-Fnafxcvlp (Ventilator/Healtcare Associated)-SepsisPLEASE CONTACT PHARMACY SERVICES (#1164) FOR INTERPRETATIONOF RESULTS. Performed By: #### L 501.8820 ####[facility] [address] [place], [address] Bedside Glucoseon 10-12-2024 FINGERSTICK GLU 285 mg/dL High 74-[address] [facility] Comment on above: Result Comment: REYNA GEMENT OF PATIENT CARE PER NURSING PROTOCOL Performed By: #### L 501.080 ####[facility] [address] [facility] [address] FINGERSTICK GLU 275 mg/dL High 74-[address] [facility] Comment on above: Result Comment: REYNA GEMENT OF PATIENT CARE PER NURSING PROTOCOL Performed By: #### L 501.080 ####[facility] [address] [place], [address] FINGERSTICK GLU 294 mg/dL High 74-[address] [facility] Comment on above: Result Comment: REYNA GEMENT OF PATIENT CARE PER NURSING PROTOCOL Performed By: #### L 501.080 ####[facility] [address] [place], [address] FINGERSTICK GLU 200 mg/dL High 74-[address] [facility] Comment on above: Result Comment: REYNA LAIRD OF PATIENT CARE PER NURSING PROTOCOL Performed By: #### L 501.080 ####[facility] [address] [place], [address] CXR for Line Placementon CXR for Line Placement Normal [facility] CXR for Line Placement Normal [facility] CXR for Line Placement Normal [facility] Consultation - Infectious Dx on 10-12-2024 Consultation - Infectious Dx Normal [facility] Culture, Blood (WB)on [address] [facility] Comment on above: Performed By: #### L 503.6005, BTS, L100.0100, L101.9900, L500.4050, M200.1000, L300.3900, L501.6710 ####[facility] [address] [place], [address] Gram Stainon 10-12-2024 GS 2-RIGHT HEEL WOUND UNK UNK Gram Stain 2+ Gram positive rods 2+ Gram positive cocci 1+ White Blood Cells Normal [facility] Comment on above: Performed By: #### M 100.2000, M100.4001, M100.3000 ####[facility] [address] [place], [address] GS SWAB SPECIMENS AEROB IC 4, ANAEROBIC 5- R HEEL WOUND UNK UNK Gram Stain No organisms seen Normal [facility] Comment on above: Performed By: #### M 100.4001, M100.3000, M1.2000 ####[facility] [address] [place], [address] GS #1 RIGHT HEEL WND (BONE) UNK UNK Gram Stain 2+ White Blood Cells No organisms seen Normal [facility] Comment on above: Performed By: #### M 100.3000, M100.2000, M1.4001 ####[facility] [address] [place], [address] Wound Cultureon 10-12-2024 WC #1 RIGHT HEEL WND (BONE) UNK UNK No growth aerobically. Normal [facility] Comment on above: Performed By: #### M 100.3000, M100.1999, M1.4001 ####[facility] [address] [place], [address] [facility] Comment on above: Performed By: #### M 100.3000, M100.1999, M1.4001 ####[facility] [address] [place], [address] Anaerobic cultureOrdered By: Ramon Garcia on 10-11-2024 Bacteria identified Anaer cx Nom (Unsp spec) Anaerobic cocci Abnormal [facility] Bacteria identified Anaer cx Nom (Unsp spec) Bacteroides thetaiotaomicron Abnormal [facility] Bacteria identified Anaer cx Nom (Unsp spec) Clostridium ramosum Abnormal [facility] Bacteria identified Anaer cx Nom (Unsp spec) No anaerobic bacteria isolated. [facility] Bacteria identified Anaer cx Nom (Unsp spec) No anaerobic bacteria isolated. [facility] Bedside Glucoseon 10-11-2024 FINGERSTICK GLU 261 mg/dL High 74-[address] [facility] Comment on above: Result Comment: REYNA GEMENT OF PATIENT CARE PER NURSING PROTOCOL Performed By: #### L 501.080 ####[facility] [address] [place], [address] FINGERSTICK GLU 272 mg/dL High 74-[address] [facility] Comment on above: Result Comment: REYNA GEMENT OF PATIENT CARE PER NURSING PROTOCOL Performed By: #### L 501.080 ####[facility] [address] [place], [address] FINGERSTICK GLU 221 mg/dL High 74-[address] [facility] Comment on above: Result Comment: REYNA GEMENT OF PATIENT CARE PER NURSING PROTOCOL Performed By: #### L 501.080 ####[facility] [address] [place], [address] FINGERSTICK GLU 230 mg/dL High 74-[address] [facility] Comment on above: Result Comment: REYNA GEMENT OF PATIENT CARE PER NURSING PROTOCOL Performed By: #### L 501.080 ####[facility] [address] [place], [address] FINGERSTICK GLU 291 mg/dL High 74-[address] [facility] Comment on above: Result Comment: REYNA GEMENT OF PATIENT CARE PER NURSING PROTOCOL Performed By: #### L 501.080 ####[facility] [address] [place], [address] Culture, Blood (WB)on [address] [facility] Comment on above: Performed By: #### M 200.1000 ####[facility] [address] [place], [address] Gram stainOrdered By: Ramon Garcia on 10-11-2024 Microscopic observation Gram stain Nom (Unsp spec) [facility] Microscopic observation Gram stain Nom (Unsp spec) [facility] Microscopic observation Gram stain Nom (Unsp spec) [facility] MR/POSTOP.ANEon 10-11-2024 MR/POSTOP.ANE Normal [facility] MR/QKCVFZNA6bb 10-11-2024 MR/POSTOPAN2 Normal [facility] Operative Reporton Operative Report Normal [facility] Routine wound cultureOrdered By: Ramon Garcia on 10-11-2024 Microbial culture, routine Streptococcus mitis/ oralis Abnormal [facility] Microbial culture, routine Morganella morganii sp sibonii Abnormal [facility] Microbial culture, routine Corynebacterium urealyticum Abnormal [facility] Surgery Specimen Level IIIon 10-11-2024 Surgery Specimen Level [address] [facility] Comment on above: Performed By: #### P SUIII ####[facility] [address] [place], [address] TSH DL <= 0.005 mIU/L QnOrde red By: Francisco Abarca on 10-11-2024 TSH Qn 0.848 uIU/mL 0.300-4.[address] [facility] Thyroid Stim Hormone (TSH)on 10-11-2024 TSH 0.848 uIU/mL Normal 0.300-4.[address] [facility] Comment on above: Performed By: #### L 501.9520 ####[facility] [address] [facility] [place], [address] Vancomycin, Trough Levelon 0 10-11-2024 VANCO, TROUGH 14.2 ug/mL Normal 5.0-15.[address] [facility] Comment on above: Order Comment: 0300 Result Comment: Milton mmended goal trough ranges are generally 10-15 mcg/mlfor less severe/complicated infections such as cellulitisor UTI and 15-20 mcg/ml for more severe/complicatedinfections such as bacteremia/sepsis, osteomyelitis,pneumonia or meningitis. Goal trough ranges should takeinto account indication, patient-specific factors andorganism REUBEN.VANCOMYCIN STANDARED DRUG THERAPY TROUGH LEVEL: 5.0 - 15.0 mg/LVANCOMYCIN HIGH INTENSITY THERAPY TROUGH LEVEL: 15.0 - 20.0 mg/LHigh Intensity therapy recommended for serious lifethreatening infections include:- Sbhafaiwbm-Dwjbornwedpn-Xqjdjpqgh (Ventilator/Healtcare Associated)-SepsisPLEASE CONTACT PHARMACY SERVICES (#4607) FOR INTERPRETATIONOF RESULTS. Performed By: #### L 501.8820 ####[facility] [address] [facility] [place], [place], [address] Basic Metabolic Profile (BMP )on 10-10-2024 BUN/CRE 12.0 RATIO Normal 10-[address] [facility] Comment on above: Performed By: #### L 500.2500, L501.9985, L100.0100 ####[facility] [address] [place], [address] Calcium [Mass/Vol] 8.5 mg/dL Normal 7.6-11.0 [facility] Comment on above: Performed By: #### L 500.2500, L501.9985, L100.0100 ####[facility] [address] [place], [address] Chloride [Moles/Vol] 98 mmol/L Normal 98-108 [facility] Comment on above: Performed By: #### L 500.2500, L501.9985, L100.0100 ####[facility] [address] [place], [address] CO2 [Moles/Vol] 27.0 mmol/L Normal 21.0-32.[address] [facility] Comment on above: Performed By: #### L 500.2500, L501.9985, L100.0100 ####[facility] [address] [place], [address] Creatinine [Mass/Vol] 0.65 mg/dL Low 0.70-1.20 [facility] Comment on above: Performed By: #### L 500.2500, L501.9985, L100.0100 ####[facility] [address] [place], [address] ECRCL 126.34 ml/min Normal 50-[address] [facility] Comment on above: Performed By: #### L 500.2500, L501.9985, L100.0100 ####[facility] [address] [place], [address] GAP 11 Normal 5-[address] [facility] Comment on above: Performed By: #### L 500.2500, L501.9985, L100.0100 ####[facility] [address] [place], [address] GFR/1.73 sq M.predicted among non-blacks MDRD (S/P/Bld) [Vol rate/Area] 101 mL/min/{1.73_m2} Normal >60 [facility] Comment on above: Result Comment: mL/m in/1.73m2 CKD-EPI Creatinine Equation (2020) Performed By: #### L 500.2500, L501.9985, L100.0100 ####[facility] [address] [place], [address] Glucose [Mass/Vol] 254 mg/dL High 70-99 [facility] Comment on above: Performed By: #### L 500.2500, L501.9985, L100.0100 ####[facility] [address] [place], [address] Potassium [Moles/Vol] 4.2 mmol/L Normal 3.3-5.1 [facility] Comment on above: Performed By: #### L 500.2500, L501.9985, L100.0100 ####[facility] [address] [place], [address] Sodium [Moles/Vol] 136 mmol/L Normal 133-145 [facility] Comment on above: Performed By: #### L 500.2500, L501.9985, L100.0100 ####[facility] [address] [place], [address] Urea nitrogen [Mass/Vol] 8 mg/dL Normal 4-[address] [facility] Comment on above: Performed By: #### L 500.2500, L501.9985, L100.0100 ####[facility] [address] [place], [address] Bedside Glucoseon 10-10-2024 FINGERSTICK GLU 298 mg/dL High 74-[address] [facility] Comment on above: Result Comment: REYNA GEMENT OF PATIENT CARE PER NURSING PROTOCOL Performed By: #### L 501.080 ####[facility] [address] [place], [address] FINGERSTICK GLU 287 mg/dL High 74-[address] [facility] Comment on above: Result Comment: REYNA GEMENT OF PATIENT CARE PER NURSING PROTOCOL Performed By: #### L 501.080 ####[facility] [address] [place], [address] FINGERSTICK GLU 304 mg/dL High 74-[address] [facility] Comment on above: Result Comment: REYNA GEMENT OF PATIENT CARE PER NURSING PROTOCOL Performed By: #### L 501.080 ####[facility] [address] [place], [address] FINGERSTICK GLU 268 mg/dL High 74-[address] [facility] Comment on above: Result Comment: REYNA GEMENT OF PATIENT CARE PER NURSING PROTOCOL Performed By: #### L 501.080 ####[facility] [address] [place], [address] CBC W/Diff, Automatedon 04-2024 Absolute Lymph 1.60 X10 3/uL Normal 0.83-4.[address] [facility] Comment on above: Performed By: #### L 500.2500, L501.9985, L100.0100 ####[facility] [address] [place], [address] Absolute Neut 5.1 X10 3/uL Normal 2.0-7.[address] [facility] Comment on above: Performed By: #### L 500.2500, L501.9985, L100.0100 ####[facility] [address] [place], [address] Basophils/100 WBC (Bld) 0.5 % Normal 0-1 [facility] Comment on above: Performed By: #### L 500.2500, L501.9985, L100.0100 ####[facility] [address] [place], [address] Eosinophils/100 WBC (Bld) 2.3 % Normal 0-[address] [facility] Comment on above: Performed By: #### L 500.2500, L501.9985, L100.0100 ####[facility] [address] [place], [address] Erythrocyte distribution width (RBC) [Ratio] 12.9 % Normal 11.6-14.[address] [facility] Comment on above: Performed By: #### L 500.2500, L501.9985, L100.0100 ####[facility] [address] [place], [address] Hematocrit (Bld) [Volume fraction] 36.7 % Low 40-[address] [facility] Comment on above: Performed By: #### L 500.2500, L501.9985, L100.0100 ####[facility] [address] [place], [address] Hemoglobin (Bld) [Mass/Vol] 12.2 g/dL Low 13.0-16.[address] [facility] Comment on above: Performed By: #### L 500.2500, L501.9985, L100.0100 ####[facility] [address] [place], [address] IG% 0.400 Normal 0.0-0.[address] [facility] Comment on above: Result Comment: IG% - Immature Granulocytes (promyelocytes, myelocytes andmetamyelocytes) > 1% indicates that a LEFT SHIFT is Present. Performed By: #### L 500.2500, L501.9985, L100.0100 ####[facility] [address] [place], [address] Lymphocytes/100 WBC (Bld) 21.2 % Normal 19-[address] [facility] Comment on above: Performed By: #### L 500.2500, L501.9985, L100.0100 ####[facility] [address] [place], [address] MCH (RBC) [Entitic mass] 27.4 pg Normal 27.0-32.[address] [facility] Comment on above: Performed By: #### L 500.2500, L501.9985, L100.0100 ####[facility] [address] [place], [address] MCHC (RBC) [Mass/Vol] 33.2 g/dL Normal 32-36 [facility] Comment on above: Performed By: #### L 500.2500, L501.9985, L100.0100 ####[facility] [address] [place], [address] MCV (RBC) [Entitic vol] 82.5 fL Normal 80-94 [facility] Comment on above: Performed By: #### L 500.2500, L501.9985, L100.0100 ####[facility] [address] [place], [address] Monocytes/100 WBC (Bld) 8.2 % Normal 0-10 [facility] Comment on above: Performed By: #### L 500.2500, L501.9985, L100.0100 ####[facility] [address] [place], [address] Neutrophils/100 WBC (Bld) 67.4 % Normal 47-[address] [facility] Comment on above: Performed By: #### L 500.2500, L501.9985, L100.0100 ####[facility] [address] [place], [address] Nucleated RBC (Bld) [#/Vol] 0 10*3/uL Normal 0-[address] [facility] Comment on above: Performed By: #### L 500.2500, L501.9985, L100.0100 ####[facility] [address] [place], [address] Platelet mean volume (Bld) [Entitic vol] 9.7 fL Normal 6.2-12.[address] [facility] Comment on above: Performed By: #### L 500.2500, L501.9985, L100.0100 ####[facility] [address] [place], [address] Platelets (Bld) [#/Vol] 231 10*3/uL Normal 150-[address] [facility] Comment on above: Performed By: #### L 500.2500, L501.9985, L100.0100 ####[facility] [address] [place], [address] RBC (Bld) [#/Vol] 4.45 10*6/uL Low 4.6-6.2 [facility] Comment on above: Performed By: #### L 500.2500, L501.9985, L100.0100 ####[facility] [address] [place], [address] RDW SD 38.8 fl Normal 35.1-43.[address] [facility] Comment on above: Performed By: #### L 500.2500, L501.9985, L100.0100 ####[facility] [address] [place], [address] WBC (Bld) [#/Vol] 7.5 10*3/uL Normal 4.4-11.0 [facility] Comment on above: Performed By: #### L 500.2500, L501.9985, L100.0100 ####[facility] [address] [place], [address] Gram Stainon 10-10-2024 GS List Antibiotics Las t 48 Hours? merrem List Antibiotics to be Started? vancomycin right heel Gram Stain 3+ Gram positive cocci 3+ Gram negative rods Rare Gram positive rods No cells seen Normal [facility] Comment on above: Performed By: #### M 100.3000, M100.2000, M100.4001 ####[facility] [address] [place], [address] Hemoglobin A1con 10-10-2024 HbA1c (Bld) [Mass fraction] 10.9 % High <=5.[address] [facility] Comment on above: Result Comment: Norm al < 5.7 % Prediabetic 5.7 - 6.4 % Diabetic >or= 6.5 % Please note range changes. Performed By: #### L 500.2500, L501.9985, L100.0100 ####[facility] [address] [place], [address] Hemoglobin A1c percentageOrd ered By: Chula Antunez on 10-10-2024 HbA1c (Bld) [Mass fraction] 10.9 % High <5.[address] [facility] Comment on above: Normal < 5.7 % Predi abetic 5.7 - 6.4 % Diabetic >or= 6.5 % Please note range changes. Lower Ext Joint Only (Routin e)on 10-10-2024 Lower Ext Joint Only (Routine) Normal [facility] Absolute neutrophil countOrd ered By: Logan Gifford on 2024 Neutrophils (Bld) [#/Vol] 9.4 10*3/uL High 2.0-7.[address] [facility] Activated partial thrombopla stin time (aPTT) in platelet poor plasma by coagulation aOrdered By: Logan Gifford on 2024 aPTT Coag (PPP) [Time] 32.3 s 24.1-36.2 [facility] Anaerobic cultureOrdered By: Logan Gifford on 2024 Bacteria identified Anaer cx Nom (Unsp spec) Bacteroides thetaiotaomicron Abnormal [facility] Bacteria identified Anaer cx Nom (Unsp spec) Clostridium ramosum Abnormal [facility] Anion gap in Serum or Plasma Ordered By: Logan Gifford on 2024 Anion gap [Moles/Vol] 14 mmol/L 5-15 [facility] BUN/creatinine ratioOrdered By: Logan Gifford on 2024 Urea nitrogen/Creatinine [Mass ratio] 9.6 mg/mg Low 10-[address] [facility] Basophil percentageOrdered B y: Logan Gifford on 2024 Basophils/100 WBC (Bld) 0.4 % 0-1 [facility] Bedside Glucoseon 2024 FINGERSTICK GLU 306 mg/dL High 74-[address] [facility] Comment on above: Result Comment: REYNA GEMENT OF PATIENT CARE PER NURSING PROTOCOL Performed By: #### L 501.080 ####[facility] [address] [place], [address] FINGERSTICK GLU 320 mg/dL High 74-[address] [facility] Comment on above: Result Comment: REYNA GEMENT OF PATIENT CARE PER NURSING PROTOCOL Performed By: #### L 501.080 ####[facility] [address] [place], [address] Bilirubin, totalOrdered By: Logan Gifford on 2024 Bilirubin [Mass/Vol] 0.88 mg/dL 0.00-1.30 [facility] Blood cultureOrdered By: Aurelio Gifford on 2024 Bacteria identified Cx Nom (Bld) Negative Abnormal [facility] Bacteria identified Cx Nom (Bld) Staphylococcus epidermidis Abnormal [facility] CBC W/Diff, Automatedon 04- Absolute Lymph 1.04 X10 3/uL Normal 0.83-4.[address] [facility] Comment on above: Performed By: #### L 503.6005, BTS, L100.0100, L101.9900, L500.4050, M200.1000, L300.3900, L501.6710 ####[facility] [address] [place], [address] Absolute Neut 9.4 X10 3/uL High 2.0-7.[address] [facility] Comment on above: Performed By: #### L 503.6005, BTS, L100.0100, L101.9900, L500.4050, M200.1000, L300.3900, L501.6710 ####[facility] [address] [place], [address] Basophils/100 WBC (Bld) 0.4 % Normal 0-1 [facility] Comment on above: Performed By: #### L 503.6005, BTS, L100.0100, L101.9900, L500.4050, M200.1000, L300.3900, L501.6710 ####[facility] [address] [place], [address] Eosinophils/100 WBC (Bld) 0.7 % Normal 0-[address] [facility] Comment on above: Performed By: #### L 503.6005, BTS, L100.0100, L101.9900, L500.4050, M200.1000, L300.3900, L501.6710 ####[facility] [address] [place], [address] Erythrocyte distribution width (RBC) [Ratio] 12.8 % Normal 11.6-14.[address] [facility] Comment on above: Performed By: #### L 503.6005, BTS, L100.0100, L101.9900, L500.4050, M200.1000, L300.3900, L501.6710 ####[facility] [address] [place], [address] Hematocrit (Bld) [Volume fraction] 38.6 % Low 40-[address] [facility] Comment on above: Performed By: #### L 503.6005, BTS, L100.0100, L101.9900, L500.4050, M200.1000, L300.3900, L501.6710 ####[facility] [address] [place], [address] Hemoglobin (Bld) [Mass/Vol] 12.8 g/dL Low 13.0-16.[address] [facility] Comment on above: Performed By: #### L 503.6005, BTS, L100.0100, L101.9900, L500.4050, M200.1000, L300.3900, L501.6710 ####[facility] [address] [place], [address] IG% 0.400 Normal 0.0-0.[address] [facility] Comment on above: Result Comment: IG% - Immature Granulocytes (promyelocytes, myelocytes andmetamyelocytes) > 1% indicates that a LEFT SHIFT is Present. Performed By: #### L 503.6005, BTS, L100.0100, L101.9900, L500.4050, M200.1000, L300.3900, L501.6710 ####[facility] [address] [place], [address] Lymphocytes/100 WBC (Bld) 9.2 % Low 19-[address] [facility] Comment on above: Performed By: #### L 503.6005, BTS, L100.0100, L101.9900, L500.4050, M200.1000, L300.3900, L501.6710 ####[facility] [address] [place], [address] MCH (RBC) [Entitic mass] 26.8 pg Low 27.0-32.[address] [facility] Comment on above: Performed By: #### L 503.6005, BTS, L100.0100, L101.9900, L500.4050, M200.1000, L300.3900, L501.6710 ####[facility] [address] [place], [address] MCHC (RBC) [Mass/Vol] 33.2 g/dL Normal 32-36 [facility] Comment on above: Performed By: #### L 503.6005, BTS, L100.0100, L101.9900, L500.4050, M200.1000, L300.3900, L501.6710 ####[facility] [address] [place], [address] MCV (RBC) [Entitic vol] 80.8 fL Normal 80-94 [facility] Comment on above: Performed By: #### L 503.6005, BTS, L100.0100, L101.9900, L500.4050, M200.1000, L300.3900, L501.6710 ####[facility] [address] [place], [address] Monocytes/100 WBC (Bld) 6.5 % Normal 0-10 [facility] Comment on above: Performed By: #### L 503.6005, BTS, L100.0100, L101.9900, L500.4050, M200.1000, L300.3900, L501.6710 ####[facility] [address] [place], [address] Neutrophils/100 WBC (Bld) 82.8 % High 47-[address] [facility] Comment on above: Performed By: #### L 503.6005, BTS, L100.0100, L101.9900, L500.4050, M200.1000, L300.3900, L501.6710 ####[facility] [address] [place], [address] Nucleated RBC (Bld) [#/Vol] 0 10*3/uL Normal 0-[address] [facility] Comment on above: Performed By: #### L 503.6005, BTS, L100.0100, L101.9900, L500.4050, M200.1000, L300.3900, L501.6710 ####[facility] [address] [place], [address] Platelet mean volume (Bld) [Entitic vol] 9.8 fL Normal 6.2-12.[address] [facility] Comment on above: Performed By: #### L 503.6005, BTS, L100.0100, L101.9900, L500.4050, M200.1000, L300.3900, L501.6710 ####[facility] [address] [place], [address] Platelets (Bld) [#/Vol] 243 10*3/uL Normal 150-[address] [facility] Comment on above: Performed By: #### L 503.6005, BTS, L100.0100, L101.9900, L500.4050, M200.1000, L300.3900, L501.6710 ####[facility] [address] [place], [address](530) RBC (Bld) [#/Vol] 4.78 10*6/uL Normal 4.6-6.2 [facility] Comment on above: Performed By: #### L 503.6005, BTS, L100.0100, L101.9900, L500.4050, M200.1000, L300.3900, L501.6710 ####[facility] [address] [place], [place], [id number](983) RDW SD 37.2 fl Normal 35.1-43.[address] [facility] Comment on above: Performed By: #### L 503.6005, BTS, L100.0100, L101.9900, L500.4050, M200.1000, L300.3900, L501.6710 ####[facility] [address] [place], [place], [phone](351) WBC (Bld) [#/Vol] 11.3 10*3/uL High 4.4-11.0 [facility] Comment on above: Performed By: #### L 503.6005, BTS, L100.0100, L101.9900, L500.4050, M200.1000, L300.3900, L501.6710 ####[facility] [address] [place], [address] CRPon 2024 C-REACTIVE PROT 141.00 mg/L High 0.0-3.[address] [facility] Comment on above: Performed By: #### L 503.6005, BTS, L100.0100, L101.9900, L500.4050, M200.1000, L300.3900, L501.6710 ####[facility] [address] [place], [address] CRP [Mass/Vol]Ordered By: Master Gifford on 2024 C-Reactive Protein Extended Range 141.00 mg/L High 0.0-3.[address] [facility] Carbon dioxide, total [Moles /volume] in Central venous bloodOrdered By: Logan Gifford on 2024 CO2 [Moles/Vol] 27.8 mmol/L 21.0-32.[address] [facility] Chest 1 View (Portable)on Chest 1 View (Portable) Normal [facility] Chloride assayOrdered By: Master Gifford on 2024 Chloride [Moles/Vol] 93 mmol/L Low 98-108 [facility] Comprehensive Metabolic Prof ilon 2024 Albumin [Mass/Vol] 3.5 g/dL Normal 3.4-4.8 [facility] Comment on above: Performed By: #### L 503.6005, BTS, L100.0100, L101.9900, L500.4050, M200.1000, L300.3900, L501.6710 ####[facility] [address] [place], [address] Albumin/Globulin [Mass ratio] 0.9 {ratio} Normal 0.9-2.[address] [facility] Comment on above: Performed By: #### L 503.6005, BTS, L100.0100, L101.9900, L500.4050, M200.1000, L300.3900, L501.6710 ####[facility] [address] [place], [address] ALK PHOS 104 U/L Normal 40-[address] [facility] Comment on above: Performed By: #### L 503.6005, BTS, L100.0100, L101.9900, L500.4050, M200.1000, L300.3900, L501.6710 ####[facility] [address] [place], [address] ALT [Catalytic activity/Vol] 11 U/L Normal <=[address] [facility] Comment on above: Performed By: #### L 503.6005, BTS, L100.0100, L101.9900, L500.4050, M200.1000, L300.3900, L501.6710 ####[facility] [address] [place], [address] AST [Catalytic activity/Vol] 18 U/L Normal <=[address] [facility] Comment on above: Performed By: #### L 503.6005, BTS, L100.0100, L101.9900, L500.4050, M200.1000, L300.3900, L501.6710 ####[facility] [address] [place], [address] Bilirubin [Mass/Vol] 0.88 mg/dL Normal 0.00-1.30 [facility] Comment on above: Performed By: #### L 503.6005, BTS, L100.0100, L101.9900, L500.4050, M200.1000, L300.3900, L501.6710 ####[facility] [address] [place], [address] BUN/CRE 9.6 RATIO Low 10-[address] [facility] Comment on above: Performed By: #### L 503.6005, BTS, L100.0100, L101.9900, L500.4050, M200.1000, L300.3900, L501.6710 ####[facility] [address] [place], [address] Calcium [Mass/Vol] 9.0 mg/dL Normal 7.6-11.0 [facility] Comment on above: Performed By: #### L 503.6005, BTS, L100.0100, L101.9900, L500.4050, M200.1000, L300.3900, L501.6710 ####[facility] [address] [place], [address] Chloride [Moles/Vol] 93 mmol/L Low 98-108 [facility] Comment on above: Performed By: #### L 503.6005, BTS, L100.0100, L101.9900, L500.4050, M200.1000, L300.3900, L501.6710 ####[facility] [address] [place], [address] CO2 [Moles/Vol] 27.8 mmol/L Normal 21.0-32.[address] [facility] Comment on above: Performed By: #### L 503.6005, BTS, L100.0100, L101.9900, L500.4050, M200.1000, L300.3900, L501.6710 ####[facility] [address] [place], [address] Creatinine [Mass/Vol] 0.81 mg/dL Normal 0.70-1.20 [facility] Comment on above: Performed By: #### L 503.6005, BTS, L100.0100, L101.9900, L500.4050, M200.1000, L300.3900, L501.6710 ####[facility] [address] [place], [address] GAP 14 Normal 5-[address] [facility] Comment on above: Performed By: #### L 503.6005, BTS, L100.0100, L101.9900, L500.4050, M200.1000, L300.3900, L501.6710 ####[facility] [address] [place], [address] GFR/1.73 sq M.predicted among non-blacks MDRD (S/P/Bld) [Vol rate/Area] 95 mL/min/{1.73_m2} Normal >60 [facility] Comment on above: Result Comment: mL/m in/1.73m2 CKD-EPI Creatinine Equation (2020) Performed By: #### L 503.6005, BTS, L100.0100, L101.9900, L500.4050, M200.1000, L300.3900, L501.6710 ####[facility] [address] [place], [address] Globulin (S) [Mass/Vol] 3.8 g/dL Normal 2.2-4.2 [facility] Comment on above: Performed By: #### L 503.6005, BTS, L100.0100, L101.9900, L500.4050, M200.1000, L300.3900, L501.6710 ####[facility] [address] [place], [address] Glucose [Mass/Vol] 384 mg/dL High 70-99 [facility] Comment on above: Performed By: #### L 503.6005, BTS, L100.0100, L101.9900, L500.4050, M200.1000, L300.3900, L501.6710 ####[facility] [address] [place], [address] Potassium [Moles/Vol] 3.9 mmol/L Normal 3.3-5.1 [facility] Comment on above: Performed By: #### L 503.6005, BTS, L100.0100, L101.9900, L500.4050, M200.1000, L300.3900, L501.6710 ####[facility] [address] [place], [address] Sodium [Moles/Vol] 134 mmol/L Normal 133-145 [facility] Comment on above: Performed By: #### L 503.6005, BTS, L100.0100, L101.9900, L500.4050, M200.1000, L300.3900, L501.6710 ####[facility] [address] [place], [address] T PROT 7.3 g/dL Normal 5.9-8.[address] [facility] Comment on above: Performed By: #### L 503.6005, BTS, L100.0100, L101.9900, L500.4050, M200.1000, L300.3900, L501.6710 ####[facility] [address] [place], [address] Urea nitrogen [Mass/Vol] 8 mg/dL Normal 4-[address] [facility] Comment on above: Performed By: #### L 503.6005, BTS, L100.0100, L101.9900, L500.4050, M200.1000, L300.3900, L501.6710 ####[facility] [address] [place], [address] Emergency Department Summary on 2024 Emergency Department Summary Normal [facility] Eosinophil percentageOrdered By: Logan Gifford on 2024 Eosinophils/100 WBC (Bld) 0.7 % 0-[address] [facility] Erythrocyte Sed Rateon 10-09 SED RATE 30 mm/hr High 0-[address] [facility] Comment on above: Performed By: #### L 503.6005, BTS, L100.0100, L101.9900, L500.4050, M200.1000, L300.3900, L501.6710 ####[facility] [address] [place], [address] Erythrocyte distribution wid th (RBC) [Ratio]Ordered By: Logan Gifford on 2024 Erythrocyte distribution width (RBC) [Entitic vol] 37.2 fL 35.1-43.9 [facility] Erythrocyte distribution wid th ratioOrdered By: Logan Gifford on 2024 Erythrocyte distribution width (RBC) [Ratio] 12.8 % 11.6-14.[address] [facility] Erythrocyte sedimentation ra teOrdered By: Logan Gifford on 2024 ESR (Bld) [Velocity] 30 mm/h High 0-20 [facility] Foot min 3 Viewson 5 Foot min [address] [facility] GFR/1.73 sq M.predicted marco g non-blacks MDRD (S/P/Bld) [Vol rate/Area]Ordered By: Logan Gifford on 2024 Estimated GFR (MDRD) Non-Af Amer [address] [facility] Comment on above: mL/min/1.73m2 CKD-EP I Creatinine Equation (2020) [facility] deOrdered By: Ramon Garcia on 2024 Glucose [Mass/Vol] 287 mg/dL High 74-106 [facility] Comment on above: MANAGEMENT OF PATIEN T CARE PER NURSING PROTOCOL Gram stainOrdered By: Logan mejias on 2024 Microscopic observation Gram stain Nom (Unsp spec) [facility] H AND P Exam - [facility] 2024 H&P Exam - Hospitalist Normal [facility] Hematocrit Auto (Bld) [Volum e fraction]Ordered By: Logan Gifford on 2024 Hematocrit (Bld) [Volume fraction] 38.6 % Low 40-[address] [facility] Hemoglobin measurementOrdere d By: Logan Gifford on 2024 Hemoglobin (Bld) [Mass/Vol] 12.8 g/dL Low 13.0-16.[address] [facility] Immature granulocytes/100 WB C Auto (Bld)Ordered By: Logan Gifford on 2024 Immature granulocytes/100 WBC (Bld) 0.400 % 0.0-0.[address] [facility] Comment on above: IG% - Immature Granu locytes (promyelocytes, myelocytes and metamyelocytes) > 1% indicates that a LEFT SHIFT is Present. International normalized rat io (INR) calculationOrdered By: Logan Gifford on 2024 INR Coag (Bld) [Relative time] 1.3 {INR} [facility] Laboratory - Chemistry and C hemistry - challengeOrdered By: Logan Gifford on 2024 AST [Catalytic activity/Vol] 18 U/L <[address] [facility] Lactic Acidon 2024 Lactate [Moles/Vol] 3.6 mmol/L Invalid Interpretation Code 0.0-2.[address] [facility] Comment on above: Order Comment: Y Result Comment: Crit ical Result(s) Called at 1442: TO ACOLE by:KCLAPPER??Results read back by same.Critical Result(s) Called at: by:??Results read back bysame.Critical Result(s) Called at 1442: TO ACOLE by:KCLAPPER??Results read back by same. AMENDED REPORT 10/09/242222 LACTIC ACID previously reported as: 3.6 *H mmol/LCritical Result(s) Called at 1442: TO ACOLE by:KCLAPPER??Results read back by same.Critical Result(s) Called at: by:??Results read back bysame. Performed By: #### L 503.6005, BTS, L100.0100, L101.9900, L500.4050, M200.1000, L300.3900, L501.6710 ####[facility] [address], [address] Lactate [Moles/Vol] 2.5 mmol/L Invalid Interpretation Code 0.0-2.[address] [facility] Comment on above: Result Comment: Crit ical Result(s) Called LDOTTERER at: 1902 by:LEANNA??Results read back by same. Performed By: #### L 503.6005 ####[facility] [address] [facility] [place], [place], [id number] Lactic acid measurementOrder ed By: Logan Gifford on 2024 Lactate [Moles/Vol] 2.5 mmol/L High 0.0-2.0 [facility] Comment on above: Critical Result(s) C alled LDOTTERER at: 1902 by: BWMARJAN Results read back by same. Lactate [Moles/Vol] 3.6 mmol/L High 0.0-2.0 [facility] Comment on above: Critical Result(s) C alled at 1442: TO ACOLE by: KCLAPPER Results read back by same. Critical Result(s) Called at: by: Results read back by same.Previous reported result: 3.6 mmol/LEdited by: SJ on 10/09/24:1501 AMENDED REPORT 10/09/24 1501 LACTIC ACID previously reported as: 3.6 *H mmol/L Critical Result(s) Called at 1442: TO ACOLE by: KCLAPPER Results read back by same. Lymphocytes Auto (Unsp spec) [#/Vol]Ordered By: Logan Gifford on 2024 Lymphocytes (Bld) [#/Vol] 1.04 10*3/uL 0.83-4.[address] [facility] Lymphocytes/100 WBC Auto (Un sp spec)Ordered By: Logan Gifford on 2024 Lymphocytes/100 WBC (Bld) 9.2 % Low 19-[address] [facility] MCV (mean corpuscular volume ) determinationOrdered By: Logan Gifford on 2024 MCV (RBC) [Entitic vol] 80.8 fL 80-94 [facility] Mean corpuscular hemoglobin (MCH) determinationOrdered By: Logan Giffrod on 2024 MCH (RBC) [Entitic mass] 26.8 pg Low 27.0-32.[address] [facility] Mean corpuscular hemoglobin concentration (MCHC) determinationOrdered By: Logan Gifford on 2024 MCHC (RBC) [Mass/Vol] 33.2 g/dL 32-36 [facility] Mean platelet volume determi nationOrdered By: Logan Gifford on 2024 Platelet mean volume (Bld) [Entitic vol] 9.8 fL 6.2-12.[address] [facility] Monocyte percentageOrdered B y: Logan Gifford on 2024 Monocytes/100 WBC (Bld) 6.5 % 0-10 [facility] Neutrophil percentageOrdered By: Logan Gifford on 2024 Neutrophils/100 WBC (Bld) 82.8 % High 47-[address] [facility] No Panel InformationOrdered By: Logan Gifford on 2024 18 U/L <[address] [facility] Nucleated red blood cell per centageOrdered By: Logan Gifford on 2024 Nucleated RBC/100 WBC (Bld) [Ratio] 0 % 0-[address] [facility] Partial Thromboplast Timeon 2024 aPTT Coag (Bld) [Time] 32.3 s Normal 24.1-36.2 [facility] Comment on above: Order Comment: RED W. PREVIOUS SPECIMEN REJECTED DUE TOQNS. 10/09/24 1406 Karla Jason. Performed By: #### L 300.3900, L300.4310 ####[facility] [address] [place], [place], [id number] Platelet countOrdered By: Master freddie Gifford on 2024 Platelets (Bld) [#/Vol] 243 10*3/uL 150-[address] [facility] Potassium (Unsp spec) [Mass/ Vol]Ordered By: Logan Le on 2024 Potassium [Moles/Vol] 3.9 mmol/L 3.3-5.1 [facility] Prothrombin Time w/INRon INR Coag (PPP) [Relative time] 1.3 {INR} Normal [facility] Comment on above: Order Comment: RED W. PREVIOUS SPECIMEN REJECTED DUE TOQNS. 10/09/24 1406 Karla Gomez. Performed By: #### L 300.3900, L300.4310 ####[facility] [address] [place], [place], [id number] PT Coag (PPP) [Time] 16.6 s High 11.7-14.9 [facility] Comment on above: Order Comment: RED W. PREVIOUS SPECIMEN REJECTED DUE TOQNS. 10/09/24 1406 Karla Gomez. Performed By: #### L 300.3900, L300.4310 ####[facility] [address] [place], [address] [facility] Comment on above: Result Comment: This specimen has been REJECTED due to Laboratory criteria:Quanity Not Sufficient.JUANA has been notified of need of recollection.10/09/24 1405 Karla Gomez Performed By: #### L 503.6005, BTS, L100.0100, L101.9900, L500.4050, M200.1000, L300.3900, L501.6710 ####[facility] [address] [place], [address] PROTIME Normal 11.7-14.[address] [facility] Comment on above: Result Comment: This specimen has been REJECTED due to Laboratory criteria:Quanity Not Sufficient.JUANA has been notified of need of recollection.10/09/24 1405 Karla Gomez Performed By: #### L 503.6005, BTS, L100.0100, L101.9900, L500.4050, M200.1000, L300.3900, L501.6710 ####[facility] [address] [place], [address] Prothrombin timeOrdered By: Logan Gifford on 2024 PT Coag (PPP) [Time] 16.6 s High 11.7-14.9 [facility] RBC Auto (Bld) [#/Vol]Ordere d By: Logan Gifford on 2024 RBC (Bld) [#/Vol] 4.78 10*6/uL 4.6-6.2 [facility] Serum creatinine measurement (mass/volume)Ordered By: Logan Gifford on 2024 Creatinine [Mass/Vol] 0.81 mg/dL 0.70-1.20 [facility] Serum globulin measurementOr dered By: Logan Gifford on 2024 Globulin (S) [Mass/Vol] 3.8 g/dL 2.2-4.2 [facility] Serum glucose measurement (m ass/volume)Ordered By: Logan Gifford on 2024 Glucose [Mass/Vol] 384 mg/dL High 70-99 [facility] Serum or plasma C reactive p rotein measurement (mass/volume)Ordered By: Logan Gifford on 2024 CRP [Mass/Vol] 141.00 mg/L High 0.0-3.[address] [facility] Serum or plasma alanine herrmann otransferase (ALT) measurementOrdered By: Logan Gifford on 2024 ALT [Catalytic activity/Vol] 11 U/L <[address] [facility] Serum or plasma albumin everardo urement (mass/volume)Ordered By: Logan Gifford on 2024 Albumin [Mass/Vol] 3.5 g/dL 3.4-4.8 [facility] Serum or plasma albumin/glob ulin mass ratioOrdered By: Logan Gifford on 2024 Albumin/Globulin [Mass ratio] 0.9 {ratio} 0.9-2.[address] [facility] Serum or plasma alkaline kaiser sphatase measurementOrdered By: Logan Gifford on 2024 ALP [Catalytic activity/Vol] 104 U/L 40-[address] [facility] Serum or plasma calcium everardo urement (mass/volume)Ordered By: Logan Gifford on 2024 Calcium [Mass/Vol] 9.0 mg/dL 7.6-11.0 [facility] Serum or plasma urea nitroge n measurement (mass/volume)Ordered By: Logan Gifford on 2024 Urea nitrogen [Mass/Vol] 8 mg/dL 4-[address] [facility] Sodium levelOrdered By: Logan Gifford on 2024 Sodium [Moles/Vol] 134 mmol/L 133-145 [facility] Total proteinOrdered By: Aurelio Gifford on 2024 Protein [Mass/Vol] 7.3 g/dL 5.9-8.4 [facility] Type AND Screenon 2024 ABO and Rh group Nom (Bld) Blood group A Rh(D) negative Normal [facility] Comment on above: Order Comment: S Performed By: #### L 503.6005, BTS, L100.0100, L101.9900, L500.4050, M200.1000, L300.3900, L501.6710 ####[facility] [address] [place], [place], [id number] White blood cell (WBC) count Ordered By: Logan Gifford on 2024 WBC (Bld) [#/Vol] 11.3 10*3/uL High 4.4-11.0 [facility] aPTT Coag (PPP) [Time]Ordere d By: Logan Gifford on 2024 aPTT Coag (Bld) [Time] 32.3 s 24.1-36.2 [facility] Prealbumin [id number] Prealbumin [Mass/Vol] 15 mg/dL Normal [facility] Comment on above: Result Comment: Perf ormed at: - [facility] [place] [id number] Director: Valente Grossman PhD, Phone: [phone] Performed By: #### L 3300.6400, L100.0100, L501.9985, L500.4050 ####[facility] [address] [place], [place], [id number] Absolute lymphocyte countOrd ered By: Ramon Garcia on 09-28-2024 Lymphocytes Auto (Unsp spec) [#/Vol] 2.49 10*3/uL 0.83-4.[address] [facility] Absolute neutrophil countOrd ered By: Ramon Garcia on 09-28-2024 Neutrophils (Bld) [#/Vol] 6.6 10*3/uL 2.0-7.[address] [facility] Anion gap in Serum or Plasma Ordered By: Ramon Garcia on 09-28-2024 Anion gap [Moles/Vol] 16 mmol/L High 5-15 [facility] Automated lymphocyte count a s percentage of total leukocytesOrdered By: Ramon Garcia on 09-28-2024 Lymphocytes/100 WBC Auto (Unsp spec) 24.7 % 19-[address] [facility] BUN/creatinine ratioOrdered By: Ramon Garcia on 09-28-2024 Urea nitrogen/Creatinine [Mass ratio] 17.5 mg/mg 10-[address] [facility] Basophil percentageOrdered B y: Ramon Garcia on 09-28-2024 Basophils/100 WBC (Bld) 0.5 % 0-1 [facility] Bilirubin, totalOrdered By: Ramon Garcia on 09-28-2024 Bilirubin [Mass/Vol] 0.45 mg/dL 0.00-1.30 [facility] CBC W/Diff, Automatedon 09-18 Absolute Lymph 2.49 X10 3/uL Normal 0.83-4.[address] [facility] Comment on above: Performed By: #### L 3300.6400, L100.0100, L501.9985, L500.4050 ####[facility] [address] [place], [address] Absolute Neut 6.6 X10 3/uL Normal 2.0-7.[address] [facility] Comment on above: Performed By: #### L 3300.6400, L100.0100, L501.9985, L500.4050 ####[facility] [address] [place], [address] Basophils/100 WBC (Bld) 0.5 % Normal 0-1 [facility] Comment on above: Performed By: #### L 3300.6400, L100.0100, L501.9985, L500.4050 ####[facility] [address] [place], [address] Eosinophils/100 WBC (Bld) 2.8 % Normal 0-[address] [facility] Comment on above: Performed By: #### L 3300.6400, L100.0100, L501.9985, L500.4050 ####[facility] [address] [place], [address] Erythrocyte distribution width (RBC) [Ratio] 13.2 % Normal 11.6-14.[address] [facility] Comment on above: Performed By: #### L 3300.6400, L100.0100, L501.9985, L500.4050 ####[facility] [address] [place], [address] Hematocrit (Bld) [Volume fraction] 43.0 % Normal 40-[address] [facility] Comment on above: Performed By: #### L 3300.6400, L100.0100, L501.9985, L500.4050 ####[facility] [address] [place], [address] Hemoglobin (Bld) [Mass/Vol] 14.2 g/dL Normal 13.0-16.[address] [facility] Comment on above: Performed By: #### L 3300.6400, L100.0100, L501.9985, L500.4050 ####[facility] [facility] [address] [place], [address] IG% 0.400 Normal 0.0-0.[address] [facility] Comment on above: Result Comment: IG% - Immature Granulocytes (promyelocytes, myelocytes andmetamyelocytes) > 1% indicates that a LEFT SHIFT is Present. Performed By: #### L 3300.6400, L100.0100, L501.9985, L500.4050 ####[facility] [address] [place], [address] Lymphocytes/100 WBC (Bld) 24.7 % Normal 19-[address] [facility] Comment on above: Performed By: #### L 3300.6400, L100.0100, L501.9985, L500.4050 ####[facility] [address] [place], [address] MCH (RBC) [Entitic mass] 27.5 pg Normal 27.0-32.[address] [facility] Comment on above: Performed By: #### L 3300.6400, L100.0100, L501.9985, L500.4050 ####[facility] [address] [place], [address] MCHC (RBC) [Mass/Vol] 33.0 g/dL Normal 32-36 [facility] Comment on above: Performed By: #### L 3300.6400, L100.0100, L501.9985, L500.4050 ####[facility] [address] [place], [address] MCV (RBC) [Entitic vol] 83.2 fL Normal 80-94 [facility] Comment on above: Performed By: #### L 3300.6400, L100.0100, L501.9985, L500.4050 ####[facility] [address] [place], [address] Monocytes/100 WBC (Bld) 6.0 % Normal 0-10 [facility] Comment on above: Performed By: #### L 3300.6400, L100.0100, L501.9985, L500.4050 ####[facility] [address] [place], [address] Neutrophils/100 WBC (Bld) 65.6 % Normal 47-[address] [facility] Comment on above: Performed By: #### L 3300.6400, L100.0100, L501.9985, L500.4050 ####[facility] [address] [place], [address] Nucleated RBC (Bld) [#/Vol] 0 10*3/uL Normal 0-[address] [facility] Comment on above: Performed By: #### L 3300.6400, L100.0100, L501.9985, L500.4050 ####[facility] [address] [place], [address] Platelet mean volume (Bld) [Entitic vol] 10.3 fL Normal 6.2-12.[address] [facility] Comment on above: Performed By: #### L 3300.6400, L100.0100, L501.9985, L500.4050 ####[facility] [address] [place], [address] Platelets (Bld) [#/Vol] 252 10*3/uL Normal 150-[address] [facility] Comment on above: Performed By: #### L 3300.6400, L100.0100, L501.9985, L500.4050 ####[facility] [address] [place], [address] RBC (Bld) [#/Vol] 5.17 10*6/uL Normal 4.6-6.2 [facility] Comment on above: Performed By: #### L 3300.6400, L100.0100, L501.9985, L500.4050 ####[facility] [address] [place], [address] RDW SD 40.0 fl Normal 35.1-43.[address] [facility] Comment on above: Performed By: #### L 3300.6400, L100.0100, L501.9985, L500.4050 ####[facility] [address] [place], [address] WBC (Bld) [#/Vol] 10.1 10*3/uL Normal 4.4-11.0 [facility] Comment on above: Performed By: #### L 3300.6400, L100.0100, L501.9985, L500.4050 ####[facility] [address] [place], [address] Carbon dioxide, total [Moles /volume] in Central venous bloodOrdered By: Ramon Garcia on 09-28-2024 CO2 [Moles/Vol] 23.6 mmol/L 21.0-32.[address] [facility] Chloride assayOrdered By: Juarez Garcia on 09-28-2024 Chloride [Moles/Vol] 97 mmol/L Low 98-108 [facility] Comprehensive Metabolic Prof ilon 09-28-2024 Albumin [Mass/Vol] 3.6 g/dL Normal 3.4-4.8 [facility] Comment on above: Performed By: #### L 3300.6400, L100.0100, L501.9985, L500.4050 ####[facility] [address] [place], [address] Albumin/Globulin [Mass ratio] 0.9 {ratio} Normal 0.9-2.[address] [facility] Comment on above: Performed By: #### L 3300.6400, L100.0100, L501.9985, L500.4050 ####[facility] [address] [place], [address] ALK PHOS 133 U/L High 40-[address] [facility] Comment on above: Performed By: #### L 3300.6400, L100.0100, L501.9985, L500.4050 ####[facility] [address] [place], [address] ALT [Catalytic activity/Vol] 15 U/L Normal <=[address] [facility] Comment on above: Performed By: #### L 3300.6400, L100.0100, L501.9985, L500.4050 ####[facility] [address] [place], [address] AST [Catalytic activity/Vol] 23 U/L Normal <=[address] [facility] Comment on above: Performed By: #### L 3300.6400, L100.0100, L501.9985, L500.4050 ####[facility] [address] [place], [address] Bilirubin [Mass/Vol] 0.45 mg/dL Normal 0.00-1.30 [facility] Comment on above: Performed By: #### L 3300.6400, L100.0100, L501.9985, L500.4050 ####[facility] [address] [place], [address] BUN/CRE 17.5 RATIO Normal 10-[address] [facility] Comment on above: Performed By: #### L 3300.6400, L100.0100, L501.9985, L500.4050 ####[facility] [address] [place], [address] Calcium [Mass/Vol] 9.4 mg/dL Normal 7.6-11.0 [facility] Comment on above: Performed By: #### L 3300.6400, L100.0100, L501.9985, L500.4050 ####[facility] [address] [place], [address] Chloride [Moles/Vol] 97 mmol/L Low 98-108 [facility] Comment on above: Performed By: #### L 3300.6400, L100.0100, L501.9985, L500.4050 ####[facility] [address] [place], [address] CO2 [Moles/Vol] 23.6 mmol/L Normal 21.0-32.[address] [facility] Comment on above: Performed By: #### L 3300.6400, L100.0100, L501.9985, L500.4050 ####[facility] [address] [place], [address] Creatinine [Mass/Vol] 0.78 mg/dL Normal 0.70-1.20 [facility] Comment on above: Performed By: #### L 3300.6400, L100.0100, L501.9985, L500.4050 ####[facility] [address] [place], [address] GAP 16 High 5-[address] [facility] Comment on above: Performed By: #### L 3300.6400, L100.0100, L501.9985, L500.4050 ####[facility] [address] [place], [address] GFR/1.73 sq M.predicted among non-blacks MDRD (S/P/Bld) [Vol rate/Area] 97 mL/min/{1.73_m2} Normal >60 [facility] Comment on above: Result Comment: mL/m in/1.73m2 CKD-EPI Creatinine Equation (2020) Performed By: #### L 3300.6400, L100.0100, L501.9985, L500.4050 ####[facility] [address] [place], [address] Globulin (S) [Mass/Vol] 4.0 g/dL Normal 2.2-4.2 [facility] Comment on above: Performed By: #### L 3300.6400, L100.0100, L501.9985, L500.4050 ####[facility] [address] [place], [address] Glucose [Mass/Vol] 361 mg/dL High 70-99 [facility] Comment on above: Performed By: #### L 3300.6400, L100.0100, L501.9985, L500.4050 ####[facility] [address] [place], [address] Potassium [Moles/Vol] 4.3 mmol/L Normal 3.3-5.1 [facility] Comment on above: Performed By: #### L 3300.6400, L100.0100, L501.9985, L500.4050 ####[facility] [address] [place], [address] Sodium [Moles/Vol] 136 mmol/L Normal 133-145 [facility] Comment on above: Performed By: #### L 3300.6400, L100.0100, L501.9985, L500.4050 ####[facility] [address] [place], [address] T PROT 7.6 g/dL Normal 5.9-8.[address] [facility] Comment on above: Performed By: #### L 3300.6400, L100.0100, L501.9985, L500.4050 ####[facility] [address] [place], [address] Urea nitrogen [Mass/Vol] 14 mg/dL Normal 4-[address] [facility] Comment on above: Performed By: #### L 3300.6400, L100.0100, L501.9985, L500.4050 ####[facility] [address] [place], [address] Eosinophil percentageOrdered By: Ramon Garcia on 09-28-2024 Eosinophils/100 WBC (Bld) 2.8 % 0-[address] [facility] Erythrocyte distribution wid th (RBC) [Ratio]Ordered By: Ramon Garcia on 09-28-2024 Erythrocyte distribution width (RBC) [Entitic vol] 40.0 fL 35.1-43.9 [facility] Erythrocyte distribution wid th ratioOrdered By: Ramon Garcia on 09-28-2024 Erythrocyte distribution width (RBC) [Ratio] 13.2 % 11.6-14.[address] [facility] Erythrocyte distribution wid th standard deviationOrdered By: Ramon Garcia on 09-28-2024 Erythrocyte distribution width (RBC) [Ratio] 40.0 fl 35.1-43.[address] [facility] GFR/1.73 sq M.predicted marco g non-blacks MDRD (S/P/Bld) [Vol rate/Area]Ordered By: Ramon aGrcia on 09-28-2024 Estimated GFR (MDRD) Non-Af Amer [address] [facility] Comment on above: mL/min/1.73m2 CKD-EP I Creatinine Equation (2020) Glomerular filtration rate ( GFR) estimation/1.73 sq m using serum, plasma, or whole bOrdered By: Ramon Garcia on 09-28-2024 GFR/1.73 sq M.predicted among non-blacks MDRD (S/P/Bld) [Vol rate/Area] 97 mL/min/{1.73_m2} >60 [facility] Comment on above: mL/min/1.73m2 CKD-EP I Creatinine Equation (2020) Hematocrit Auto (Bld) [Volum e fraction]Ordered By: Ramon Garcia on 09-28-2024 Hematocrit (Bld) [Volume fraction] 43.0 % 40-[address] [facility] Hemoglobin A1con 09-28-2024 HbA1c (Bld) [Mass fraction] 11.1 % High <=5.[address] [facility] Comment on above: Result Comment: Norm al < 5.7 % Prediabetic 5.7 - 6.4 % Diabetic >or= 6.5 % Please note range changes. Performed By: #### L 3300.6400, L100.0100, L501.9985, L500.4050 ####[facility] [address] [place], [place], [id number] Hemoglobin A1c percentageOrd ered By: Ramon Garcia on 09-28-2024 HbA1c (Bld) [Mass fraction] 11.1 % High <5.[address] [facility] Comment on above: Normal < 5.7 % Predi abetic 5.7 - 6.4 % Diabetic >or= 6.5 % Please note range changes. Hemoglobin measurementOrdere d By: Ramon Garcia on 09-28-2024 Hemoglobin (Bld) [Mass/Vol] 14.2 g/dL 13.0-16.[address] [facility] Immature granulocytes/100 WB C Auto (Bld)Ordered By: Ramon Garcia on 09-28-2024 Immature granulocytes/100 WBC (Bld) 0.400 % 0.0-0.[address] [facility] Comment on above: IG% - Immature Granu locytes (promyelocytes, myelocytes and metamyelocytes) > 1% indicates that a LEFT SHIFT is Present. Laboratory - Chemistry and C hemistry - challengeOrdered By: Ramon Garcia on 09-28-2024 AST [Catalytic activity/Vol] 23 U/L <[address] [facility] Lymphocytes Auto (Unsp spec) [#/Vol]Ordered By: Ramon Garcia on 09-28-2024 Lymphocytes (Bld) [#/Vol] 2.49 10*3/uL 0.83-4.[address] [facility] Lymphocytes/100 WBC Auto (Un sp spec)Ordered By: Ramon Garcia on 09-28-2024 Lymphocytes/100 WBC (Bld) 24.7 % 19-[address] [facility] MCV (mean corpuscular volume ) determinationOrdered By: Ramon Garcia on 09-28-2024 MCV (RBC) [Entitic vol] 83.2 fL 80-94 [facility] Mean corpuscular hemoglobin (MCH) determinationOrdered By: Ramon Garcia on 09-28-2024 MCH (RBC) [Entitic mass] 27.5 pg 27.0-32.[address] [facility] Mean corpuscular hemoglobin concentration (MCHC) determinationOrdered By: Ramon Garcia on 09-28-2024 MCHC (RBC) [Mass/Vol] 33.0 g/dL 32-36 [facility] Mean platelet volume determi nationOrdered By: Ramon Garcia on 09-28-2024 Platelet mean volume (Bld) [Entitic vol] 10.3 fL 6.2-12.[address] [facility] Monocyte percentageOrdered B y: Ramon Garcia on 09-28-2024 Monocytes/100 WBC (Bld) 6.0 % 0-10 [facility] Neutrophil percentageOrdered By: Ramon Garcia on 09-28-2024 Neutrophils/100 WBC (Bld) 65.6 % 47-[address] [facility] No Panel InformationOrdered By: Ramon Garcia on 09-28-2024 23 U/L <[address] [facility] Nucleated red blood cell per centageOrdered By: Ramon Garcia on 09-28-2024 Nucleated RBC/100 WBC (Bld) [Ratio] 0 % 0-[address] [facility] Platelet countOrdered By: Juarez Garcia on 09-28-2024 Platelets (Bld) [#/Vol] 252 10*3/uL 150-[address] [facility] Potassium (Unsp spec) [Mass/ Vol]Ordered By: Ramon Garcia on 09-28-2024 Potassium [Moles/Vol] 4.3 mmol/L 3.3-5.1 [facility] Potassium measurement (mass/ volume)Ordered By: Ramon Garcia on 09-28-2024 Potassium (Unsp spec) [Mass/Vol] 4.3 mmol/L 3.3-5.[address] [facility] RBC Auto (Bld) [#/Vol]Ordere d By: Ramon Garcia on 09-28-2024 RBC (Bld) [#/Vol] 5.17 10*6/uL 4.6-6.2 [facility] Serum creatinine measurement (mass/volume)Ordered By: Ramon Garcia on 09-28-2024 Creatinine [Mass/Vol] 0.78 mg/dL 0.70-1.20 [facility] Serum globulin measurementOr dered By: Ramon Garcia on 09-28-2024 Globulin (S) [Mass/Vol] 4.0 g/dL 2.2-4.2 [facility] Serum glucose measurement (m ass/volume)Ordered By: Ramon Garcia on 09-28-2024 Glucose [Mass/Vol] 361 mg/dL High 70-99 [facility] Serum or plasma alanine herrmann otransferase (ALT) measurementOrdered By: Ramon Garcia on 09-28-2024 ALT [Catalytic activity/Vol] 15 U/L <[address] [facility] Serum or plasma albumin everardo urement (mass/volume)Ordered By: Ramon Garcia on 09-28-2024 Albumin [Mass/Vol] 3.6 g/dL 3.4-4.8 [facility] Serum or plasma albumin/glob ulin mass ratioOrdered By: Ramon Garcia on 09-28-2024 Albumin/Globulin [Mass ratio] 0.9 {ratio} 0.9-2.[address] [facility] Serum or plasma alkaline kaiser sphatase measurementOrdered By: Ramon Garcia on 09-28-2024 ALP [Catalytic activity/Vol] 133 U/L High 40-[address] [facility] Serum or plasma calcium everardo urement (mass/volume)Ordered By: Ramon Garcia on 09-28-2024 Calcium [Mass/Vol] 9.4 mg/dL 7.6-11.0 [facility] Serum or plasma urea nitroge n measurement (mass/volume)Ordered By: Ramon Garcia on 09-28-2024 Urea nitrogen [Mass/Vol] 14 mg/dL - [facility] Serum prealbumin measurement by immunoassayOrdered By: Ramon Garcia on 09-28-2024 Prealbumin [Mass/Vol] 15 mg/dL [facility] Comment on above: Performed at: [address] [id number] Director: Valente Grossman PhD, Phone: [phone] Serum prealbumin measurement by immunoassay 15 mg/dL [facility] Sodium levelOrdered By: Curtis Garcia on 09-28-2024 Sodium [Moles/Vol] 136 mmol/L 133-145 [facility] Total proteinOrdered By: Jemal Garcia on 09-28-2024 Protein [Mass/Vol] 7.6 g/dL 5.9-8.4 [facility] White blood cell (WBC) count Ordered By: Ramon Garcia on 09-28-2024 WBC (Bld) [#/Vol] 10.1 10*3/uL 4.4-11.0 [facility] Wound Ctr History AND Physic arely 09-25-2024 Wound Ctr History & Physical Normal [facility] Wound Cultureon 08-27-[address] [facility] Comment on above: Performed By: #### M 100.1999, M100.3000 ####[facility] [address] [place], [place], [address] Gram Stainon 08-24-2024 GS Gram Stain 1+ Gram positive cocci Rare Gram negative rods No White Blood Cells No Epithelial cells Normal [facility] Comment on above: Performed By: #### M 100.1999, M100.3000 ####[facility] [address] [place], [place], [address] Gram stainOrdered By: Ramon Garcia on 08-22-2024 Microscopic observation Gram stain Nom (Unsp spec) [facility] Routine wound cultureOrdered By: Ramon Garcia on 08-22-2024 Wound Culture Proteus mirabilis Abnormal [facility] Wound Culture Negative Abnormal [facility] PSA,Total - Annual Screenon 08-02-2024 PSA,TOT SCREEN 3.29 ng/mL Normal 0.00-4.[address] [facility] Comment on above: Result Comment: This test was performed using the TPSA assay method for theDimension chemistry system. Values obtained with differentassay methods cannot be used interchangably.When changing PSA assays in the course of monitoring apatient, additional sequential testing should be carriedout to confirm baseline values. Performed By: #### L 501.9910 ####[facility] [address] [place], [address] Screening prostate specific antigen (PSA) measurementOrdered By: Bernabe Reese on 08-02-2024 Prostate Specific Antigen Screen 3.29 ng/mL 0.00-4.[address] [facility] Comment on above: This test was perfor med using the TPSA assay method for theDimension chemistry system. Values obtained with differentassay methods cannot be used interchangably.When changing PSA assays in the course of monitoring apatient, additional sequential testing should be carriedout to confirm baseline values. Absolute neutrophil countOrd ered By: Bernabe Reese on 06-19-2024 Neutrophils (Bld) [#/Vol] 5.2 10*3/uL 2.0-7.[address] [facility] Albumin to globulin ratioOrd ered By: Bernabe Reese on 06-19-2024 Albumin/Globulin [Mass ratio] 0.8 {ratio} Low 0.9-2.[address] [facility] Basophil percentageOrdered B y: Bernabe Reese on 06-19-2024 Basophils/100 WBC (Bld) 0.6 % 0-1 [facility] Bilirubin, totalOrdered By: Bernabe Reese on 06-19-2024 Bilirubin [Mass/Vol] 0.40 mg/dL 0.20-1.00 [facility] Comment on above: For patients on eltr ombopag therapy, use of Dimension [place] TBIL is not recommended. Blood urea nitrogen (BUN)/cr eatinine ratioOrdered By: Bernabe Reese on 06-19-2024 Urea nitrogen/Creatinine [Mass ratio] 16.8 mg/mg 10-[address] [facility] CBC W/Diff, Automatedon 12- Absolute Lymph 2.24 X10 3/uL Normal 0.83-4.[address] [facility] Comment on above: Order Comment: Order Date: 06/19/24Order Info: 018- - CBCD Performed By: #### L 100.0100, L501.5200, L500.4050, L502.0250, L501.9985, L500.4100 ####[facility] [address] [place], [address] Absolute Neut 5.2 X10 3/uL Normal 2.0-7.[address] [facility] Comment on above: Order Comment: Order Date: 06/19/24Order Info: 018- - CBCD Performed By: #### L 100.0100, L501.5200, L500.4050, L502.0250, L501.9985, L500.4100 ####[facility] [address] [place], [place], [phone]) Basophils/100 WBC (Bld) 0.6 % Normal 0-1 [facility] Comment on above: Order Comment: Order Date: 06/19/24Order Info: 018-1 - CBCD Performed By: #### L 100.0100, L501.5200, L500.4050, L502.0250, L501.9985, L500.4100 ####[facility] [address] [place], [place], [phone]) Eosinophils/100 WBC (Bld) 2.8 % Normal 0-[address] [facility] Comment on above: Order Comment: Order Date: 06/19/24Order Info: 0184-1 - CBCD Performed By: #### L 100.0100, L501.5200, L500.4050, L502.0250, L501.9985, L500.4100 ####[facility] [address] [place], [address] Erythrocyte distribution width (RBC) [Ratio] 13.5 % Normal 11.6-14.[address] [facility] Comment on above: Order Comment: Order Date: 06/19/24Order Info: 018- - CBCD Performed By: #### L 100.0100, L501.5200, L500.4050, L502.0250, L501.9985, L500.4100 ####[facility] [address] [place], [address] Hematocrit (Bld) [Volume fraction] 44.1 % Normal 40-[address] [facility] Comment on above: Order Comment: Order Date: 06/19/24Order Info: 01809-18 - CBCD Performed By: #### L 100.0100, L501.5200, L500.4050, L502.0250, L501.9985, L500.4100 ####[facility] [address] [facility] [place], [address] Hemoglobin (Bld) [Mass/Vol] 14.6 g/dL Normal 13.0-16.[address] [facility] Comment on above: Order Comment: Order Date: 06/19/24Order Info: 01809-18 - CBCD Performed By: #### L 100.0100, L501.5200, L500.4050, L502.0250, L501.9985, L500.4100 ####[facility] [address] [place], [address] IG% 0.500 Normal 0.0-0.[address] [facility] Comment on above: Order Comment: Order Date: 06/19/24Order Info: 01809-18 - CBCD Result Comment: IG% - Immature Granulocytes (promyelocytes, myelocytes andmetamyelocytes) > 1% indicates that a LEFT SHIFT is Present. Performed By: #### L 100.0100, L501.5200, L500.4050, L502.0250, L501.9985, L500.4100 ####[facility] [address], [address] Lymphocytes/100 WBC (Bld) 27.3 % Normal 19-[address] [facility] Comment on above: Order Comment: Order Date: 06/19/24Order Info: 183- - CBCD Performed By: #### L 100.0100, L501.5200, L500.4050, L502.0250, L501.9985, L500.4100 ####[facility] [address] [place], [address] MCH (RBC) [Entitic mass] 27.7 pg Normal 27.0-32.[address] [facility] Comment on above: Order Comment: Order Date: 06/19/24Order Info: 183-06 - CBCD Performed By: #### L 100.0100, L501.5200, L500.4050, L502.0250, L501.9985, L500.4100 ####[facility] [address], [address] MCHC (RBC) [Mass/Vol] 33.1 g/dL Normal 32-36 [facility] Comment on above: Order Comment: Order Date: 06/19/24Order Info: 183-06 - CBCD Performed By: #### L 100.0100, L501.5200, L500.4050, L502.0250, L501.9985, L500.4100 ####[facility] [address] [place], [address] MCV (RBC) [Entitic vol] 83.7 fL Normal 80-94 [facility] Comment on above: Order Comment: Order Date: 06/19/24Order Info: 183- - CBCD Performed By: #### L 100.0100, L501.5200, L500.4050, L502.0250, L501.9985, L500.4100 ####[facility] [address] [place], [address] Monocytes/100 WBC (Bld) 5.7 % Normal 0-10 [facility] Comment on above: Order Comment: Order Date: 06/19/24Order Info: 0184-1 - CBCD Performed By: #### L 100.0100, L501.5200, L500.4050, L502.0250, L501.9985, L500.4100 ####[facility] [address] [place], [address] Neutrophils/100 WBC (Bld) 63.1 % Normal 47-[address] [facility] Comment on above: Order Comment: Order Date: 06/19/24Order Info: 018- - CBCD Performed By: #### L 100.0100, L501.5200, L500.4050, L502.0250, L501.9985, L500.4100 ####[facility] [address] [place], [address] Nucleated RBC (Bld) [#/Vol] 0 10*3/uL Normal 0-[address] [facility] Comment on above: Order Comment: Order Date: 06/19/24Order Info: 018-1 - CBCD Performed By: #### L 100.0100, L501.5200, L500.4050, L502.0250, L501.9985, L500.4100 ####[facility] [address] [place], [address] Platelet mean volume (Bld) [Entitic vol] 10.6 fL Normal 6.2-12.[address] [facility] Comment on above: Order Comment: Order Date: 06/19/24Order Info: 018-1 - CBCD Performed By: #### L 100.0100, L501.5200, L500.4050, L502.0250, L501.9985, L500.4100 ####[facility] [address] [place], [address] Platelets (Bld) [#/Vol] 206 10*3/uL Normal 150-[address] [facility] Comment on above: Order Comment: Order Date: 06/19/24Order Info: 018- - CBCD Performed By: #### L 100.0100, L501.5200, L500.4050, L502.0250, L501.9985, L500.4100 ####[facility] [address] [place], [address] RBC (Bld) [#/Vol] 5.27 10*6/uL Normal 4.6-6.2 [facility] Comment on above: Order Comment: Order Date: 06/19/24Order Info: 01809-18 - CBCD Performed By: #### L 100.0100, L501.5200, L500.4050, L502.0250, L501.9985, L500.4100 ####[facility] [address] [place], [address] RDW SD 41.1 fl Normal 35.1-43.[address] [facility] Comment on above: Order Comment: Order Date: 06/19/24Order Info: 01809-18 - CBCD Performed By: #### L 100.0100, L501.5200, L500.4050, L502.0250, L501.9985, L500.4100 ####[facility] [address] [place], [address] WBC (Bld) [#/Vol] 8.2 10*3/uL Normal 4.4-11.0 [facility] Comment on above: Order Comment: Order Date: 06/19/24Order Info: [id number]- - CBCD Performed By: #### L 100.0100, L501.5200, L500.4050, L502.0250, L501.9985, L500.4100 ####[facility] [address] [place], [place], [id number] Carbon dioxide measurementOr dered By: Bernabe Reese on 06-19-2024 CO2 [Moles/Vol] 27.0 mmol/L 21.0-32.[address] [facility] Chloride measurementOrdered By: Bernabe Reese on 06-19-2024 Chloride [Moles/Vol] 101 mmol/L 98-107 [facility] Metabolic Prof ilon 06-19-2024 Albumin [Mass/Vol] 3.2 g/dL Normal 3.2-5.0 [facility] Comment on above: Order Comment: Order Date: 06/19/24Order Info: [id number] - CMPOrder Info: [id number] - LIPIDOrder Info: - MG Performed By: #### L 100.0100, L501.5200, L500.4050, L502.0250, L501.9985, L500.4100 ####[facility] [address] [place], [place], [address] Albumin/Globulin [Mass ratio] 0.8 {ratio} Low 0.9-2.[address] [facility] Comment on above: Order Comment: Order Date: 06/19/24Order Info: 07- - CMPOrder Info: [id number] - LIPIDOrder Info: - MG Performed By: #### L 100.0100, L501.5200, L500.4050, L502.0250, L501.9985, L500.4100 ####[facility] [address] [place], [place], [id number] ALK P 136 U/L High 45-[address] [facility] Comment on above: Order Comment: Order Date: 06/19/24Order Info: 07-1 - CMPOrder Info: [id number] - LIPIDOrder Info: - MG Performed By: #### L 100.0100, L501.5200, L500.4050, L502.0250, L501.9985, L500.4100 ####[facility] [address] [place], [address] ALT [Catalytic activity/Vol] 29 U/L Normal 16-[address] [facility] Comment on above: Order Comment: Order Date: 06/19/24Order Info: [id number] - CMPOrder Info: [id number] - LIPIDOrder Info: [id number] - MG Performed By: #### L 100.0100, L501.5200, L500.4050, L502.0250, L501.9985, L500.4100 ####[facility] [address] [place], [address] AST [Catalytic activity/Vol] 32 U/L Normal 15-[address] [facility] Comment on above: Order Comment: Order Date: 06/19/24Order Info: [id number]- - CMPOrder Info: [id number] - LIPIDOrder Info: [id number] - MG Performed By: #### L 100.0100, L501.5200, L500.4050, L502.0250, L501.9985, L500.4100 ####[facility] [address] [place], [address] Bilirubin [Mass/Vol] 0.40 mg/dL Normal 0.20-1.00 [facility] Comment on above: Order Comment: Order Date: 06/19/24Order Info: [id number]- - CMPOrder Info: [id number] - LIPIDOrder Info: [id number] - MG Result Comment: For patients on eltrombopag therapy, use of Dimension [place] TBIL is not recommended. Performed By: #### L 100.0100, L501.5200, L500.4050, L502.0250, L501.9985, L500.4100 ####[facility] [address] [place], [address] BUN/CRE 16.8 RATIO Normal 10-[address] [facility] Comment on above: Order Comment: Order Date: 06/19/24Order Info: [id number] - CMPOrder Info: [id number] - LIPIDOrder Info: - MG Performed By: #### L 100.0100, L501.5200, L500.4050, L502.0250, L501.9985, L500.4100 ####[facility] [address] [place], [address] CA,Total 9.3 mg/dL Normal 8.5-10.[address] [facility] Comment on above: Order Comment: Order Date: 06/19/24Order Info: [id number]- - CMPOrder Info: [id number] - LIPIDOrder Info: - MG Performed By: #### L 100.0100, L501.5200, L500.4050, L502.0250, L501.9985, L500.4100 ####[facility] [address] [place], [address] Chloride [Moles/Vol] 101 mmol/L Normal 98-107 [facility] Comment on above: Order Comment: Order Date: 06/19/24Order Info: [id number] - CMPOrder Info: [id number] - LIPIDOrder Info: - MG Performed By: #### L 100.0100, L501.5200, L500.4050, L502.0250, L501.9985, L500.4100 ####[facility] [address] [place], [address] CO2 [Moles/Vol] 27.0 mmol/L Normal 21.0-32.[address] [facility] Comment on above: Order Comment: Order Date: 06/19/24Order Info: 07 - CMPOrder Info: [id number] - LIPIDOrder Info: - MG Performed By: #### L 100.0100, L501.5200, L500.4050, L502.0250, L501.9985, L500.4100 ####[facility] [address] [place], [address] Creatinine [Mass/Vol] 0.90 mg/dL Normal 0.70-1.30 [facility] Comment on above: Order Comment: Order Date: 06/19/24Order Info: 07-1 - CMPOrder Info: [id number] - LIPIDOrder Info: [id number] - MG Result Comment: The validity of the calculated GFR GFRAA in patients over70 years has not been determined. Clinical correlation isessential. Performed By: #### L 100.0100, L501.5200, L500.4050, L502.0250, L501.9985, L500.4100 ####[facility] [address] [place], [place], [id number] EST GFR - AA 108 mL/min Normal >[address] [facility] Comment on above: Order Comment: Order Date: 06/19/24Order Info: [id number] - CMPOrder Info: [id number] - LIPIDOrder Info: [id number] - MG Result Comment: Afri can Vietnamese GFR Calc Performed By: #### L 100.0100, L501.5200, L500.4050, L502.0250, L501.9985, L500.4100 ####[facility] [address] [place], [place], [id number] GAP 8 Normal 5-[address] [facility] Comment on above: Order Comment: Order Date: 06/19/24Order Info: [id number] - CMPOrder Info: [id number] - LIPIDOrder Info: [id number] - MG Performed By: #### L 100.0100, L501.5200, L500.4050, L502.0250, L501.9985, L500.4100 ####[facility] [address] [place], [place], [address] GFR/1.73 sq M.predicted among non-blacks MDRD (S/P/Bld) [Vol rate/Area] 89 mL/min/{1.73_m2} Normal >60 [facility] Comment on above: Order Comment: Order Date: 06/19/24Order Info: [id number] - CMPOrder Info: [id number] - LIPIDOrder Info: [id number] - MG Result Comment: Non- GFR Calc Performed By: #### L 100.0100, L501.5200, L500.4050, L502.0250, L501.9985, L500.4100 ####[facility] [address] [place], [address] Globulin (S) [Mass/Vol] 4.2 g/dL Normal 2.2-4.2 [facility] Comment on above: Order Comment: Order Date: 06/19/24Order Info: [id number]- - CMPOrder Info: - LIPIDOrder Info: [id number] - MG Performed By: #### L 100.0100, L501.5200, L500.4050, L502.0250, L501.9985, L500.4100 ####[facility] [address] [place], [address] Glucose [Mass/Vol] 367 mg/dL High 74-106 [facility] Comment on above: Order Comment: Order Date: 06/19/24Order Info: [id number]- - CMPOrder Info: [id number] - LIPIDOrder Info: [id number] - MG Result Comment: Gluc ose result greater than or equal to 200 mg/dLsuggests DIABETES MELLITUS per A.D.A. criteria. Performed By: #### L 100.0100, L501.5200, L500.4050, L502.0250, L501.9985, L500.4100 ####[facility] [address] [place], [address] Potassium [Moles/Vol] 4.0 mmol/L Normal 3.5-5.1 [facility] Comment on above: Order Comment: Order Date: 06/19/24Order Info: 07- - CMPOrder Info: [id number] - LIPIDOrder Info: [id number] - MG Performed By: #### L 100.0100, L501.5200, L500.4050, L502.0250, L501.9985, L500.4100 ####[facility] [address] [place], [address] Sodium [Moles/Vol] 135 mmol/L Low 136-145 [facility] Comment on above: Order Comment: Order Date: 06/19/24Order Info: [id number] - CMPOrder Info: [id number] - LIPIDOrder Info: [id number] - MG Performed By: #### L 100.0100, L501.5200, L500.4050, L502.0250, L501.9985, L500.4100 ####[facility] [address] [place], [place], [phone]) T PROT 7.4 g/dL Normal 6.4-8.[address] [facility] Comment on above: Order Comment: Order Date: 06/19/24Order Info: 07- - CMPOrder Info: [id number] - LIPIDOrder Info: [id number] - MG Performed By: #### L 100.0100, L501.5200, L500.4050, L502.0250, L501.9985, L500.4100 ####[facility] [address] [place], [place], [phone] Urea nitrogen [Mass/Vol] 15 mg/dL Normal 7-[address] [facility] Comment on above: Order Comment: Order Date: 06/19/24Order Info: [id number] - CMPOrder Info: [id number] - LIPIDOrder Info: [id number] - MG Performed By: #### L 100.0100, L501.5200, L500.4050, L502.0250, L501.9985, L500.4100 ####[facility] [address] [place], [place], [phone]) Eosinophil percentageOrdered By: Bernabe Reese on 06-19-2024 Eosinophils/100 WBC (Bld) 2.8 % 0-[address] [facility] Erythrocyte distribution wid th ratioOrdered By: Bernabe Reese on 06-19-2024 Erythrocyte distribution width (RBC) [Ratio] 13.5 % 11.6-14.[address] [facility] Erythrocyte distribution wid th standard deviationOrdered By: Bernabe Reese on 06-19-2024 Erythrocyte distribution width (RBC) [Entitic vol] 41.1 fL 35.1-43.9 [facility] Estimated glomerular filtrat ion rate (GFR) AmericanOrdered By: Bernabe Reese on 06-19-2024 Estimated GFR (MDRD) Amer 108 mL/min >[address] [facility] Comment on above: GFR Calc Glomerular filtration rate ( GFR) estimationOrdered By: Bernabe Reese on 06-19-2024 Estimated GFR (MDRD) Non-Af Amer 89 mL/min >[address] [facility] Comment on above: Non- GFR Calc Glucose measurementOrdered B y: Bernabe Reese on 06-19-2024 Glucose [Mass/Vol] 367 mg/dL High 74-106 [facility] Comment on above: Glucose result great er than or equal to 200 mg/dLsuggests DIABETES MELLITUS per A.D.A. criteria. Hematocrit Auto (Bld) [Volum e fraction]Ordered By: Bernabe Reese on 06-19-2024 Hematocrit (Bld) [Volume fraction] 44.1 % 40-[address] [facility] Hemoglobin A1con 06-19-2024 HbA1c (Bld) [Mass fraction] 10.4 % [facility] 3.8-5.[address] [facility] Comment on above: Order Comment: Order Date: 06/19/24Order Info: [id number] - A1C Result Comment: Norm al < 5.7 % Prediabetic 5.7 - 6.4 % Diabetic >or= 6.5 % Please note range changes. Performed By: #### L 100.0100, L501.5200, L500.4050, L502.0250, L501.9985, L500.4100 ####[facility] [address] [place], [place], [address] Hemoglobin A1c percentageOrd ered By: Bernabe Reese on 06-19-2024 HbA1c (Bld) [Mass fraction] 10.4 % High 3.8-5.[address] [facility] Comment on above: Normal < 5.7 % Predi abetic 5.7 - 6.4 % Diabetic >or= 6.5 % Please note range changes. Hemoglobin measurementOrdere d By: Bernabe Reese on 06-19-2024 Hemoglobin (Bld) [Mass/Vol] 14.6 g/dL 13.0-16.[address] [facility] High density lipoprotein (HD L) measurementOrdered By: Bernabe Reese on 06-19-2024 Cholesterol in HDL [Mass/Vol] 36 mg/dL Low >[address] [facility] Comment on above: The drugs N-Acetylcy steine and Metamizole may falsely depress this assay. Reference Range HDL <40 mg/dL Low HDL Cholesterol HDL >or= 60 mg/dL High HDL Cholesterol Immature granulocytes/100 WB C Auto (Bld)Ordered By: Bernabe Reese on 06-19-2024 Immature granulocytes/100 WBC (Bld) 0.500 % 0.0-0.[address] [facility] Comment on above: IG% - Immature Granu locytes (promyelocytes, myelocytes and metamyelocytes) > 1% indicates that a LEFT SHIFT is Present. Laboratory - Chemistry and C hemistry - challengeOrdered By: Bernabe Reese on 06-19-2024 AST [Catalytic activity/Vol] 32 U/L 15-[address] [facility] Lipid Profileon 06-19-2024 Cholesterol [Mass/Vol] 179 mg/dL Normal 200 [facility] Comment on above: Order Comment: Order Date: 06/19/24Order Info: [id number] - CMPOrder Info: [id number] - LIPIDOrder Info: [id number] - MG Result Comment: <200 mg/dL Desirable 200-240 mg/dL Borderline >240 mg/dL High Risk Performed By: #### L 100.0100, L501.5200, L500.4050, L502.0250, L501.9985, L500.4100 ####[facility] [address] [place], [address] Cholesterol in HDL [Mass/Vol] 36 mg/dL Low [facility] Comment on above: Order Comment: Order Date: 06/19/24Order Info: [id number]- - CMPOrder Info: [id number] - LIPIDOrder Info: [id number] - MG Result Comment: The drugs N-Acetylcysteine and Metamizole may falselydepress this assay. Reference Range HDL <40 mg/dL Low HDL Cholesterol HDL >or= 60 mg/dL High HDL Cholesterol Performed By: #### L 100.0100, L501.5200, L500.4050, L502.0250, L501.9985, L500.4100 ####[facility] [address] [place], [address] Cholesterol in LDL [Mass/Vol] 66 mg/dL Normal 0-[address] [facility] Comment on above: Order Comment: Order Date: 06/19/24Order Info: [id number] - CMPOrder Info: - LIPIDOrder Info: [id number] - MG Performed By: #### L 100.0100, L501.5200, L500.4050, L502.0250, L501.9985, L500.4100 ####[facility] [address] [place], [address] Cholesterol in VLDL [Mass/Vol] 77 mg/dL High 5-[address] [facility] Comment on above: Order Comment: Order Date: 06/19/24Order Info: [id number] - CMPOrder Info: [id number] - LIPIDOrder Info: [id number] - MG Performed By: #### L 100.0100, L501.5200, L500.4050, L502.0250, L501.9985, L500.4100 ####[facility] [address] [place], [address] Triglyceride [Mass/Vol] 387 mg/dL High [facility] Comment on above: Order Comment: Order Date: 06/19/24Order Info: [id number]- - CMPOrder Info: [id number] - LIPIDOrder Info: [id number] - MG Result Comment: The drugs N-Acetylcysteine and Metamizole may falselydepress this assay.Serum Triglycerides Reference Interval Normal <150 mg/dL Borderline high 150 - 199 mg/dL High 200 - 499 mg/dL Very High > or = 500 mg/dL Performed By: #### L 100.0100, L501.5200, L500.4050, L502.0250, L501.9985, L500.4100 ####[facility] [address] [place], [place], [phone] Low density lipoprotein (LDL ) cholesterol measurementOrdered By: Bernabe Reese on 06-19-2024 Cholesterol in LDL [Mass/Vol] 66 mg/dL 0-[address] [facility] Lymphocytes Auto (Unsp spec) [#/Vol]Ordered By: Bernabe Reese on 06-19-2024 Lymphocytes (Bld) [#/Vol] 2.24 10*3/uL 0.83-4.[address] [facility] Lymphocytes/100 WBC Auto (Un sp spec)Ordered By: Bernabe Reese on 06-19-2024 Lymphocytes/100 WBC (Bld) 27.3 % 19-[address] [facility] MCV (mean corpuscular volume ) determinationOrdered By: Bernabe Reese on 06-19-2024 MCV (RBC) [Entitic vol] 83.7 fL 80-94 [facility] Magnesiumon 06-19-2024 Magnesium [Mass/Vol] 1.7 mg/dL Normal 1.6-2.6 [facility] Comment on above: Order Comment: Order Date: 06/19/24Order Info: [id number] - CMPOrder Info: [id number] - LIPIDOrder Info: [id number] - MG Performed By: #### L 100.0100, L501.5200, L500.4050, L502.0250, L501.9985, L500.4100 ####[facility] [address] [place], [place], [id number] Magnesium measurementOrdered By: Bernabe Reese on 06-19-2024 Magnesium [Mass/Vol] 1.7 mg/dL 1.6-2.6 [facility] Mean corpuscular hemoglobin (MCH) determinationOrdered By: Bernabe Reese on 06-19-2024 MCH (RBC) [Entitic mass] 27.7 pg 27.0-32.[address] [facility] Mean corpuscular hemoglobin concentration (MCHC) determinationOrdered By: Bernabe Reese on 06-19-2024 MCHC (RBC) [Mass/Vol] 33.1 g/dL 32-36 [facility] Mean platelet volume determi nationOrdered By: Bernabe Reese on 06-19-2024 Platelet mean volume (Bld) [Entitic vol] 10.6 fL 6.2-12.[address] [facility] Microalb:Creat Ratio,Random URon 06-19-2024 Creatinine [Mass/Vol] 53.80 mg/dL Normal NO RAN GE EST. [facility] Comment on above: Order Comment: Order Date: 06/19/24Order Info: [id number] - MIACRE Performed By: #### L 100.0100, L501.5200, L500.4050, L502.0250, L501.9985, L500.4100 ####[facility] [address] [place], [address] MALB:CRE 747.2 mg/g CRE High <30 mg/g CRE [facility] Comment on above: Order Comment: Order Date: 06/19/24Order Info: [id number] - MIACRE Performed By: #### L 100.0100, L501.5200, L500.4050, L502.0250, L501.9985, L500.4100 ####[facility] [address] [place], [place], [id number] MICROALBUMIN,UR 402.0 mg/L Normal NO RANGE EST. [facility] Comment on above: Order Comment: Order Date: 06/19/24Order Info: [id number] - MIACRE Performed By: #### L 100.0100, L501.5200, L500.4050, L502.0250, L501.9985, L500.4100 ####[facility] [address] [place], [address] Monocyte percentageOrdered B y: Bernabe Reese on 06-19-2024 Monocytes/100 WBC (Bld) 5.7 % 0-10 [facility] Neutrophil percentageOrdered By: Bernabe Reese on 06-19-2024 Neutrophils/100 WBC (Bld) 63.1 % 47-[address] [facility] Nucleated red blood cell per centageOrdered By: Bernabe Reese on 06-19-2024 Nucleated RBC/100 WBC (Bld) [Ratio] 0 % 0-[address] [facility] Platelet countOrdered By: Alona Reese on 06-19-2024 Platelets (Bld) [#/Vol] 206 10*3/uL 150-[address] [facility] Potassium measurementOrdered By: Bernabe Reese on 06-19-2024 Potassium [Moles/Vol] 4.0 mmol/L 3.5-5.1 [facility] RBC Auto (Bld) [#/Vol]Ordere d By: Bernabe Reese on 06-19-2024 RBC (Bld) [#/Vol] 5.27 10*6/uL 4.6-6.2 [facility] Random urine microalbumin me asurementOrdered By: Bernabe Reese on 06-19-2024 Urine Random Microalbumin 402.0 mg/L NO RANGE EST. [facility] Serum anion gap measurementO rdered By: Bernabe Reese on 06-19-2024 Anion gap [Moles/Vol] 8 mmol/L 5-15 [facility] Serum globulin measurementOr dered By: Bernabe Reese on 06-19-2024 Globulin (S) [Mass/Vol] 4.2 g/dL 2.2-4.2 [facility] Serum or plasma alanine herrmann otransferase (ALT) measurementOrdered By: Bernabe Reese on 06-19-2024 ALT [Catalytic activity/Vol] 29 U/L 16-[address] [facility] Serum or plasma albumin everardo urement (mass/volume)Ordered By: Bernabe Reese on 06-19-2024 Albumin [Mass/Vol] 3.2 g/dL 3.2-5.0 [facility] Serum or plasma alkaline kaiser sphatase measurementOrdered By: Bernabe Reese on 06-19-2024 ALP [Catalytic activity/Vol] 136 U/L High 45-[address] [facility] Serum or plasma calcium everardo urement (mass/volume)Ordered By: Bernabe Reese on 06-19-2024 Calcium [Mass/Vol] 9.3 mg/dL 8.5-10.1 [facility] Serum or plasma cholesterol measurement (mass/volume)Ordered By: Bernabe Reese on 06-19-2024 Cholesterol [Mass/Vol] 179 mg/dL <200 [facility] Comment on above: <200 mg/dL Desirable 200-240 mg/dL Borderline >240 mg/dL High Risk Serum or plasma creatinine m easurement (mass/volume)Ordered By: Bernabe Reese on 06-19-2024 Creatinine [Mass/Vol] 0.90 mg/dL 0.70-1.30 [facility] Comment on above: The validity of the calculated GFR & GFRAA in patients over 70 years has not been determined. Clinical correlation is essential. Serum or plasma urea nitroge n measurement (mass/volume)Ordered By: Bernabe Reese on 06-19-2024 Urea nitrogen [Mass/Vol] 15 mg/dL 7-[address] [facility] Sodium levelOrdered By: Bernabe Reese on 06-19-2024 Sodium [Moles/Vol] 135 mmol/L Low 136-145 [facility] Total proteinOrdered By: Ruiz Reese on 06-19-2024 Protein [Mass/Vol] 7.4 g/dL 6.4-8.2 [facility] Triglycerides measurementOrd ered By: Bernabe Reese on 06-19-2024 Triglyceride [Mass/Vol] 387 mg/dL High <199 [facility] Comment on above: The drugs N-Acetylcy steine and Metamizole may falsely depress this assay.Serum Triglycerides Reference Interval Normal <150 mg/dL Borderline high 150 - 199 mg/dL High 200 - 499 mg/dL Very High > or = 500 mg/dL Urine albumin/creatinine rat io for detection of microalbuminuriaOrdered By: Bernabe Reese on 06-19-2024 Urine Microalbumin/Creatinine Ratio 747.2 mg/g CRE High <[address] [facility] Urine creatinine measurement (mass/volume)Ordered By: Bernabe Reese on 06-19-2024 Creatinine (U) [Mass/Vol] 53.80 mg/dL NO RANGE EST. [facility] Very low density lipoprotein (VLDL) cholesterol measurementOrdered By: Bernabe Reese on 06-19-2024 VLDL Cholesterol 77 mg/dL High 5-[address] [facility] White blood cell (WBC) count Ordered By: Bernabe Reese on 06-19-2024 WBC (Bld) [#/Vol] 8.2 10*3/uL 4.4-11.0 [facility] Thyroidon 02-13-[address] [facility] CBC W/Diff, Automatedon 12-18 Absolute Lymph 2.46 X10 3/uL Normal 0.83-4.[address] [facility] Comment on above: Order Comment: Order Date: 12/28/23Order Info: [id number] - CBCD Performed By: #### L 501.9985, L500.4050, L502.0250, L100.0100, L501.5200, L500.4100 ####[facility] [address] [place], [address] Absolute Neut 4.2 X10 3/uL Normal 2.0-7.[address] [facility] Comment on above: Order Comment: Order Date: 12/28/23Order Info: [id number] - CBCD Performed By: #### L 501.9985, L500.4050, L502.0250, L100.0100, L501.5200, L500.4100 ####[facility] [address] [place], [address] Basophils/100 WBC (Bld) 0.7 % Normal 0-1 [facility] Comment on above: Order Comment: Order Date: 12/28/23Order Info: [id number] - CBCD Performed By: #### L 501.9985, L500.4050, L502.0250, L100.0100, L501.5200, L500.4100 ####[facility] [address] [place], [address] Eosinophils/100 WBC (Bld) 2.1 % Normal 0-[address] [facility] Comment on above: Order Comment: Order Date: 12/28/23Order Info: [id number] - CBCD Performed By: #### L 501.9985, L500.4050, L502.0250, L100.0100, L501.5200, L500.4100 ####[facility] [address] [place], [address] Erythrocyte distribution width (RBC) [Ratio] 14.5 % Normal 11.6-14.[address] [facility] Comment on above: Order Comment: Order Date: 12/28/23Order Info: [id number] - CBCD Performed By: #### L 501.9985, L500.4050, L502.0250, L100.0100, L501.5200, L500.4100 ####[facility] [address] [place], [address] Hematocrit (Bld) [Volume fraction] 43.5 % Normal 40-[address] [facility] Comment on above: Order Comment: Order Date: 12/28/23Order Info: [id number] - CBCD Performed By: #### L 501.9985, L500.4050, L502.0250, L100.0100, L501.5200, L500.4100 ####[facility] [address] [place], [address] Hemoglobin (Bld) [Mass/Vol] 14.4 g/dL Normal 13.0-16.[address] [facility] Comment on above: Order Comment: Order Date: 12/28/23Order Info: [id number] - CBCD Performed By: #### L 501.9985, L500.4050, L502.0250, L100.0100, L501.5200, L500.4100 ####[facility] [address] [place], [address] IG% 0.300 Normal 0.0-0.[address] [facility] Comment on above: Order Comment: Order Date: 12/28/23Order Info: [id number] - CBCD Result Comment: IG% - Immature Granulocytes (promyelocytes, myelocytes andmetamyelocytes) > 1% indicates that a LEFT SHIFT is Present. Performed By: #### L 501.9985, L500.4050, L502.0250, L100.0100, L501.5200, L500.4100 ####[facility] [address] [place], [address] Lymphocytes/100 WBC (Bld) 33.0 % Normal 19-[address] [facility] Comment on above: Order Comment: Order Date: 12/28/23Order Info: [id number] - CBCD Performed By: #### L 501.9985, L500.4050, L502.0250, L100.0100, L501.5200, L500.4100 ####[facility] [address] [place], [address] MCH (RBC) [Entitic mass] 27.3 pg Normal 27.0-32.[address] [facility] Comment on above: Order Comment: Order Date: 12/28/23Order Info: [id number] - CBCD Performed By: #### L 501.9985, L500.4050, L502.0250, L100.0100, L501.5200, L500.4100 ####[facility] [address] [place], [address] MCHC (RBC) [Mass/Vol] 33.1 g/dL Normal 32-36 [facility] Comment on above: Order Comment: Order Date: 12/28/23Order Info: [id number] - CBCD Performed By: #### L 501.9985, L500.4050, L502.0250, L100.0100, L501.5200, L500.4100 ####[facility] [address] [place], [address] MCV (RBC) [Entitic vol] 82.5 fL Normal 80-94 [facility] Comment on above: Order Comment: Order Date: 12/28/23Order Info: [id number] - CBCD Performed By: #### L [id number], L500.4050, L502.0250, L100.0100, L501.5200, L500.4100 ####[facility] [address] [place], [address] Monocytes/100 WBC (Bld) 7.1 % Normal 0-10 [facility] Comment on above: Order Comment: Order Date: 12/28/23Order Info: 018- - CBCD Performed By: #### L [id number], L500.4050, L502.0250, L100.0100, L501.5200, L500.4100 ####[facility] [address] [place], [address] Neutrophils/100 WBC (Bld) 56.8 % Normal 47-[address] [facility] Comment on above: Order Comment: Order Date: 12/28/23Order Info: 018- - CBCD Performed By: #### L [id number], L500.4050, L502.0250, L100.0100, L501.5200, L500.4100 ####[facility] [address] [place], [address] Nucleated RBC (Bld) [#/Vol] 0 10*3/uL Normal 0-[address] [facility] Comment on above: Order Comment: Order Date: 12/28/23Order Info: [id number] - CBCD Performed By: #### L 501.9985, L500.4050, L502.0250, L100.0100, L501.5200, L500.4100 ####[facility] [address] [place], [address] Platelet mean volume (Bld) [Entitic vol] 10.4 fL Normal 6.2-12.[address] [facility] Comment on above: Order Comment: Order Date: 12/28/23Order Info: [id number] - CBCD Performed By: #### L 501.9985, L500.4050, L502.0250, L100.0100, L501.5200, L500.4100 ####[facility] [address] [place], [address] Platelets (Bld) [#/Vol] 193 10*3/uL Normal 150-[address] [facility] Comment on above: Order Comment: Order Date: 12/28/23Order Info: [id number] - CBCD Performed By: #### L 501.9985, L500.4050, L502.0250, L100.0100, L501.5200, L500.4100 ####[facility] [address] [place], [address] RBC (Bld) [#/Vol] 5.27 10*6/uL Normal 4.6-6.2 [facility] Comment on above: Order Comment: Order Date: 12/28/23Order Info: [id number] - CBCD Performed By: #### L 501.9985, L500.4050, L502.0250, L100.0100, L501.5200, L500.4100 ####[facility] [address] [place], [address] RDW SD 42.6 fl Normal 35.1-43.[address] [facility] Comment on above: Order Comment: Order Date: 12/28/23Order Info: [id number] - CBCD Performed By: #### L 501.9985, L500.4050, L502.0250, L100.0100, L501.5200, L500.4100 ####[facility] [address] [place], [address] WBC (Bld) [#/Vol] 7.5 10*3/uL Normal 4.4-11.0 [facility] Comment on above: Order Comment: Order Date: 12/28/23Order Info: [id number] - CBCD Performed By: #### L 501.9985, L500.4050, L502.0250, L100.0100, L501.5200, L500.4100 ####[facility] [address] [place], [address] Comprehensive Metabolic Prof ilon 12-28-2023 Albumin [Mass/Vol] 3.2 g/dL Normal 3.2-5.0 [facility] Comment on above: Order Comment: Order Date: 12/28/23Order Info: 07-1 - CMPOrder Info: [id number] - LIPIDOrder Info: [id number] - MG Performed By: #### L 501.9985, L500.4050, L502.0250, L100.0100, L501.5200, L500.4100 ####[facility] [address] [place], [address] Albumin/Globulin [Mass ratio] 0.7 {ratio} Low 0.9-2.[address] [facility] Comment on above: Order Comment: Order Date: 12/28/23Order Info: 07- - CMPOrder Info: [id number] - LIPIDOrder Info: [id number] - MG Performed By: #### L 501.9985, L500.4050, L502.0250, L100.0100, L501.5200, L500.4100 ####[facility] [address] [place], [address] ALK P 109 U/L Normal 45-[address] [facility] Comment on above: Order Comment: Order Date: 12/28/23Order Info: [id number] - CMPOrder Info: [id number] - LIPIDOrder Info: [id number] - MG Performed By: #### L 501.9985, L500.4050, L502.0250, L100.0100, L501.5200, L500.4100 ####[facility] [address] [place], [address] ALT [Catalytic activity/Vol] 27 U/L Normal 16-[address] [facility] Comment on above: Order Comment: Order Date: 12/28/23Order Info: [id number] - CMPOrder Info: [id number] - LIPIDOrder Info: [id number] - MG Performed By: #### L 501.9985, L500.4050, L502.0250, L100.0100, L501.5200, L500.4100 ####[facility] [address] [place], [address] AST [Catalytic activity/Vol] 27 U/L Normal 15-[address] [facility] Comment on above: Order Comment: Order Date: 12/28/23Order Info: [id number] - CMPOrder Info: [id number] - LIPIDOrder Info: [id number] - MG Performed By: #### L 501.9985, L500.4050, L502.0250, L100.0100, L501.5200, L500.4100 ####[facility] [address] [place], [address] Bilirubin [Mass/Vol] 0.50 mg/dL Normal 0.20-1.00 [facility] Comment on above: Order Comment: Order Date: 12/28/23Order Info: [id number] - CMPOrder Info: [id number] - LIPIDOrder Info: [id number] - MG Result Comment: For patients on eltrombopag therapy, use of Dimension [place] TBIL is not recommended. Performed By: #### L 501.9985, L500.4050, L502.0250, L100.0100, L501.5200, L500.4100 ####[facility] [address] [place], [address] BUN/CRE 19.5 RATIO Normal 10-[address] [facility] Comment on above: Order Comment: Order Date: 12/28/23Order Info: [id number] - CMPOrder Info: [id number] - LIPIDOrder Info: [id number] - MG Performed By: #### L 501.9985, L500.4050, L502.0250, L100.0100, L501.5200, L500.4100 ####[facility] [address] [place], [address] CA,Total 9.5 mg/dL Normal 8.5-10.[address] [facility] Comment on above: Order Comment: Order Date: 12/28/23Order Info: [id number] - CMPOrder Info: [id number] - LIPIDOrder Info: [id number] - MG Performed By: #### L 501.9985, L500.4050, L502.0250, L100.0100, L501.5200, L500.4100 ####[facility] [address] [place], [address] Chloride [Moles/Vol] 101 mmol/L Normal 98-107 [facility] Comment on above: Order Comment: Order Date: 12/28/23Order Info: 07- - CMPOrder Info: [id number] - LIPIDOrder Info: [id number] - MG Performed By: #### L 501.9985, L500.4050, L502.0250, L100.0100, L501.5200, L500.4100 ####[facility] [address] [place], [address] CO2 [Moles/Vol] 23.0 mmol/L Normal 21.0-32.[address] [facility] Comment on above: Order Comment: Order Date: 12/28/23Order Info: 07-1 - CMPOrder Info: [id number] - LIPIDOrder Info: [id number] - MG Performed By: #### L 501.9985, L500.4050, L502.0250, L100.0100, L501.5200, L500.4100 ####[facility] [address] [place], [address] Creatinine [Mass/Vol] 0.98 mg/dL Normal 0.70-1.30 [facility] Comment on above: Order Comment: Order Date: 12/28/23Order Info: 86-1 - CMPOrder Info: [id number] - LIPIDOrder Info: [id number] - MG Result Comment: The validity of the calculated GFR GFRAA in patients over70 years has not been determined. Clinical correlation isessential. Performed By: #### L 501.9985, L500.4050, L502.0250, L100.0100, L501.5200, L500.4100 ####[facility] [address] [place], [address] EST GFR - AA 98 mL/min Normal >[address] [facility] Comment on above: Order Comment: Order Date: 12/28/23Order Info: [id number]- - CMPOrder Info: [id number] - LIPIDOrder Info: [id number] - MG Result Comment: Afri can Vietnamese GFR Calc Performed By: #### L 501.9985, L500.4050, L502.0250, L100.0100, L501.5200, L500.4100 ####[facility] [address] [place], [place], [address] GAP 10 Normal 5-[address] [facility] Comment on above: Order Comment: Order Date: 12/28/23Order Info: 07- - CMPOrder Info: [id number] - LIPIDOrder Info: [id number] - MG Performed By: #### L 501.9985, L500.4050, L502.0250, L100.0100, L501.5200, L500.4100 ####[facility] [address] [place], [place], [address] GFR/1.73 sq M.predicted among non-blacks MDRD (S/P/Bld) [Vol rate/Area] 81 mL/min/{1.73_m2} Normal >60 [facility] Comment on above: Order Comment: Order Date: 12/28/23Order Info: [id number]- - CMPOrder Info: [id number] - LIPIDOrder Info: [id number] - MG Result Comment: Non- GFR Calc Performed By: #### L 501.9985, L500.4050, L502.0250, L100.0100, L501.5200, L500.4100 ####[facility] [address] [place], [address] Globulin (S) [Mass/Vol] 4.4 g/dL High 2.2-4.2 [facility] Comment on above: Order Comment: Order Date: 12/28/23Order Info: 07-1 - CMPOrder Info: [id number] - LIPIDOrder Info: [id number] - MG Performed By: #### L 501.9985, L500.4050, L502.0250, L100.0100, L501.5200, L500.4100 ####[facility] [address] [place], [address] Glucose [Mass/Vol] 301 mg/dL High 74-106 [facility] Comment on above: Order Comment: Order Date: 12/28/23Order Info: 07- - CMPOrder Info: [id number] - LIPIDOrder Info: [id number] - MG Result Comment: Gluc ose result greater than or equal to 200 mg/dLsuggests DIABETES MELLITUS per A.D.A. criteria. Performed By: #### L 501.9985, L500.4050, L502.0250, L100.0100, L501.5200, L500.4100 ####[facility] [address] [place], [address] Potassium [Moles/Vol] 4.2 mmol/L Normal 3.5-5.1 [facility] Comment on above: Order Comment: Order Date: 12/28/23Order Info: 07-1 - CMPOrder Info: [id number] - LIPIDOrder Info: [id number] - MG Performed By: #### L 501.9985, L500.4050, L502.0250, L100.0100, L501.5200, L500.4100 ####[facility] [address] [place], [address] Sodium [Moles/Vol] 134 mmol/L Low 136-145 [facility] Comment on above: Order Comment: Order Date: 12/28/23Order Info: [id number] - CMPOrder Info: [id number] - LIPIDOrder Info: [id number] - MG Performed By: #### L 501.9985, L500.4050, L502.0250, L100.0100, L501.5200, L500.4100 ####[facility] [address] [place], [address] T PROT 7.6 g/dL Normal 6.4-8.[address] [facility] Comment on above: Order Comment: Order Date: 12/28/23Order Info: [id number] - CMPOrder Info: [id number] - LIPIDOrder Info: [id number] - MG Performed By: #### L 501.9985, L500.4050, L502.0250, L100.0100, L501.5200, L500.4100 ####[facility] [address] [place], [address] Urea nitrogen [Mass/Vol] 19 mg/dL High 7-[address] [facility] Comment on above: Order Comment: Order Date: 12/28/23Order Info: [id number] - CMPOrder Info: [id number] - LIPIDOrder Info: [id number] - MG Performed By: #### L 501.9985, L500.4050, L502.0250, L100.0100, L501.5200, L500.4100 ####[facility] [address] [place], [address] Hemoglobin A1con 12-28-2023 HbA1c (Bld) [Mass fraction] 10.6 % High 3.8-5.[address] [facility] Comment on above: Order Comment: Order Date: 12/28/23Order Info: [id number] - A1C Result Comment: Norm al < 5.7 % Prediabetic 5.7 - 6.4 % Diabetic >or= 6.5 % Please note range changes. Performed By: #### L 501.9985, L500.4050, L502.0250, L100.0100, L501.5200, L500.4100 ####[facility] [address] [place], [address] Lipid Profileon 12-28-2023 Cholesterol [Mass/Vol] 201 mg/dL High 200 [facility] Comment on above: Order Comment: Order Date: 12/28/23Order Info: [id number] - CMPOrder Info: [id number] - LIPIDOrder Info: [id number] - MG Result Comment: <200 mg/dL Desirable 200-240 mg/dL Borderline >240 mg/dL High Risk Performed By: #### L 501.9985, L500.4050, L502.0250, L100.0100, L501.5200, L500.4100 ####[facility] [address] [place], [address] Cholesterol in HDL [Mass/Vol] 42 mg/dL Normal [facility] Comment on above: Order Comment: Order Date: 12/28/23Order Info: 785- - CMPOrder Info: [id number] - LIPIDOrder Info: [id number] - MG Result Comment: The drugs N-Acetylcysteine and Metamizole may falselydepress this assay. Reference Range HDL <40 mg/dL Low HDL Cholesterol HDL >or= 60 mg/dL High HDL Cholesterol Performed By: #### L 501.9985, L500.4050, L502.0250, L100.0100, L501.5200, L500.4100 ####[facility] [address] [place], [address] Cholesterol in LDL [Mass/Vol] 97 mg/dL Normal 0-[address] [facility] Comment on above: Order Comment: Order Date: 12/28/23Order Info: 07-1 - CMPOrder Info: [id number] - LIPIDOrder Info: [id number] - MG Performed By: #### L 501.9985, L500.4050, L502.0250, L100.0100, L501.5200, L500.4100 ####[facility] [address] [place], [address] Cholesterol in VLDL [Mass/Vol] 62 mg/dL High 5-[address] [facility] Comment on above: Order Comment: Order Date: 12/28/23Order Info: 86- - CMPOrder Info: [id number] - LIPIDOrder Info: [id number] - MG Performed By: #### L 501.9985, L500.4050, L502.0250, L100.0100, L501.5200, L500.4100 ####[facility] [address] [place], [address] Triglyceride [Mass/Vol] 309 mg/dL High [facility] Comment on above: Order Comment: Order Date: 12/28/23Order Info: 07 - CMPOrder Info: [id number] - LIPIDOrder Info: [id number] - MG Result Comment: The drugs N-Acetylcysteine and Metamizole may falselydepress this assay.Serum Triglycerides Reference Interval Normal <150 mg/dL Borderline high 150 - 199 mg/dL High 200 - 499 mg/dL Very High > or = 500 mg/dL Performed By: #### L 501.9985, L500.4050, L502.0250, L100.0100, L501.5200, L500.4100 ####[facility] [address] [place], [address] Magnesiumon 12-28-2023 Magnesium [Mass/Vol] 1.9 mg/dL Normal 1.6-2.6 [facility] Comment on above: Order Comment: Order Date: 12/28/23Order Info: [id number] - CMPOrder Info: [id number] - LIPIDOrder Info: [id number] - MG Performed By: #### L 501.9985, L500.4050, L502.0250, L100.0100, L501.5200, L500.4100 ####[facility] [address] [place], [place], [address] Microalb:Creat Ratio,Random URon 12-28-2023 Creatinine [Mass/Vol] 110.00 mg/dL Normal NO RAN GE EST. [facility] Comment on above: Order Comment: Order Date: 12/28/23Order Info: [id number] - MIACRE Performed By: #### L 501.9985, L500.4050, L502.0250, L100.0100, L501.5200, L500.4100 ####[facility] [address] [place], [address] MALB:CRE 455.5 mg/g CRE High <30 mg/g CRE [facility] Comment on above: Order Comment: Order Date: 12/28/23Order Info: [id number] - MIACRE Performed By: #### L 501.9985, L500.4050, L502.0250, L100.0100, L501.5200, L500.4100 ####[facility] [address] [place], [address] MICROALBUMIN,UR 501.0 mg/L Normal NO RANGE EST. [facility] Comment on above: Order Comment: Order Date: 12/28/23Order Info: [id number] - MIACRE Performed By: #### L 501.9985, L500.4050, L502.0250, L100.0100, L501.5200, L500.4100 ####[facility] [address] [place], [place], [phone] Urinalysis, Completeon 12-27 BACTERIA 0 SEEN Normal None Seen [facility] Comment on above: Order Comment: CLEAN CATCH Result Comment: This specimen has been REJECTED due to Laboratory criteria:Quantity Not Sufficient.Gordon Odom has been notified of need of recollection.12/28/23 Tami Balbuena Performed By: #### L 400.0001 ####[facility] [address] [place], [address] EPI,SQUAMOUS 0 SEEN Normal 0-[address] [facility] Comment on above: Order Comment: CLEAN CATCH Result Comment: This specimen has been REJECTED due to Laboratory criteria:Quantity Not Sufficient.Gordon Odom has been notified of need of recollection.12/28/231656 Lupis Balbuena Performed By: #### L 400.0001 ####[facility] [address] [place], [address] Mucus Ql (Urine sed) 0 SEEN Normal [facility] Comment on above: Order Comment: CLEAN CATCH Result Comment: This specimen has been REJECTED due to Laboratory criteria:Quantity Not Sufficient.Gordon Odom has been notified of need of recollection.12/28/231656 Lupis Balbuena Performed By: #### L 400.0001 ####[facility] [address] [place], [address] RBC 0 SEEN Normal 0-[address] [place] [address] Comment on above: Order Comment: CLEAN CATCH Result Comment: This specimen has been REJECTED due to Laboratory criteria:Quantity Not Sufficient.Gordon Odom has been notified of need of recollection.12/28/231656 Lupis Balbuena Performed By: #### L 400.0001 ####[facility] [address] [place], [address] WBC 0 SEEN Normal 0-[address] [place] [address] Comment on above: Order Comment: CLEAN CATCH Result Comment: This specimen has been REJECTED due to Laboratory criteria:Quantity Not Sufficient.Gordon Odom has been notified of need of recollection.12/28/231656 Lupis Balbuena Performed By: #### L 400.0001 ####[facility] [address] [place], [address] BILIRUBIN URINE Normal Negative [facility] Comment on above: Order Comment: CLEAN CATCH Result Comment: This specimen has been REJECTED due to Laboratory criteria:Quantity Not Sufficient.Gordon Odom has been notified of need of recollection.12/28/231656 Lupis Balbuena Performed By: #### L 400.0001 ####[facility] [address] [place], [address] Clarity (U) Normal Clear [facility] Comment on above: Order Comment: CLEAN CATCH Result Comment: This specimen has been REJECTED due to Laboratory criteria:Quantity Not Sufficient.Gordon Odom has been notified of need of recollection.12/28/231656 Lupis Balbuena Performed By: #### L 400.0001 ####[facility] [address] [place], [address] Color (U) Normal Yellow [facility] Comment on above: Order Comment: CLEAN CATCH Result Comment: This specimen has been REJECTED due to Laboratory criteria:Quantity Not Sufficient.Gordon Odom has been notified of need of recollection.12/28/231656 Lupis Balbuena Performed By: #### L 400.0001 ####[facility] [address] [place], [address] GLUCOSE, UR Normal Normal [facility] Comment on above: Order Comment: CLEAN CATCH Result Comment: This specimen has been REJECTED due to Laboratory criteria:Quantity Not Sufficient.Gordon Odom has been notified of need of recollection.12/28/231656 Lupis Balbuena Performed By: #### L 400.0001 ####[facility] [address] [place], [address] KETONE UR Normal Negative [facility] Comment on above: Order Comment: CLEAN CATCH Result Comment: This specimen has been REJECTED due to Laboratory criteria:Quantity Not Sufficient.Gordon Odom has been notified of need of recollection.12/28/231656 Lupis Balbuena Performed By: #### L 400.0001 ####[facility] [address] [place], [address] LEUK ESTERASE Normal Negative [facility] Comment on above: Order Comment: CLEAN CATCH Result Comment: This specimen has been REJECTED due to Laboratory criteria:Quantity Not Sufficient.Gordon Odom has been notified of need of recollection.12/28/231656 Lupis Sage Sree Performed By: #### L 400.0001 ####[facility] [address] [place], [address] Nitrite Ql (U) Normal Negative [facility] Comment on above: Order Comment: CLEAN CATCH Result Comment: This specimen has been REJECTED due to Laboratory criteria:Quantity Not Sufficient.Gordon Odom has been notified of need of recollection.12/28/231656 Lupis Sage Sree Performed By: #### L 400.0001 ####[facility] [address] [place], [address] OCCULT BLOOD-UR Normal Negative [facility] Comment on above: Order Comment: CLEAN CATCH Result Comment: This specimen has been REJECTED due to Laboratory criteria:Quantity Not Sufficient.Gordon Odom has been notified of need of recollection.12/28/231656 Lupis Chu Sree Performed By: #### L 400.0001 ####[facility] [address] [place], [address] pH UR Normal 5.0 - 8.[address] [facility] Comment on above: Order Comment: CLEAN CATCH Result Comment: This specimen has been REJECTED due to Laboratory criteria:Quantity Not Sufficient.Gordon Odom has been notified of need of recollection.12/28/231656 Lupis Chu Sree Performed By: #### L 400.0001 ####[facility] [address] [facility] [address] PROT DIPSTX Normal Negative [facility] Comment on above: Order Comment: CLEAN CATCH Result Comment: This specimen has been REJECTED due to Laboratory criteria:Quantity Not Sufficient.Gordon Odom has been notified of need of recollection.12/28/231656 Lupis Chu Sree Performed By: #### L 400.0001 ####[facility] [address] [place], [address] SP.GR. DIPSTX Normal 1.002-1.[address] [facility] Comment on above: Order Comment: CLEAN CATCH Result Comment: This specimen has been REJECTED due to Laboratory criteria:Quantity Not Sufficient.Gordon Odom has been notified of need of recollection.12/28/231656 Lupis Balbuena Performed By: #### L 400.0001 ####[facility] [address] [place], [address] UR Preservative Normal [facility] Comment on above: Order Comment: CLEAN CATCH Result Comment: This specimen has been REJECTED due to Laboratory criteria:Quantity Not Sufficient.Gordon Odom has been notified of need of recollection.12/28/231656 Lupis Balbuena Performed By: #### L 400.0001 ####[facility] [address] [place], [address] UROBILI Normal Normal [facility] Comment on above: Order Comment: CLEAN CATCH Result Comment: This specimen has been REJECTED due to Laboratory criteria:Quantity Not Sufficient.Gordon Odom has been notified of need of recollection.12/28/231656 Lupis Balbuena Performed By: #### L 400.0001 ####[facility] [address] [place], [place], [address] Absolute lymphocyte countOrd ered By: Bernabe Reese on 09-09-2023 Lymphocytes Auto (Unsp spec) [#/Vol] 2.04 10*3/uL 0.83-4.[address] [facility] Automated lymphocyte count a s percentage of total leukocytesOrdered By: Bernabe Reese on 09-09-2023 Lymphocytes/100 WBC Auto (Unsp spec) 26.5 % 19-[address] [facility] Basophil percentageOrdered B y: Bernabe Reese on 09-09-2023 Basophils/100 WBC (Bld) 0.9 % 0-1 [facility] Bilirubin [Mass/Vol] 0.60 mg/dL 0.20-1.00 [facility] Comment on above: For patients on eltr ombopag therapy, use of Dimension [place] TBIL is not recommended. Chloride [Moles/Vol] 100 mmol/L 98-107 [facility] Cholesterol [Mass/Vol] 158 mg/dL <200 [facility] Comment on above: <200 mg/dL Desirable 200-240 mg/dL Borderline >240 mg/dL High Risk Eosinophils/100 WBC (Bld) 3.6 % 0-[address] [facility] Glucose [Mass/Vol] 303 mg/dL 74-106 [facility] Comment on above: Glucose result great er than or equal to 200 mg/dLsuggests DIABETES MELLITUS per A.D.A. criteria. Hemoglobin (Bld) [Mass/Vol] 13.4 g/dL 13.0-16.[address] [facility] Monocytes/100 WBC (Bld) 7.4 % 0-10 [facility] Neutrophils (Bld) [#/Vol] 4.7 10*3/uL 2.0-7.[address] [facility] Neutrophils/100 WBC (Bld) 61.1 % 47-[address] [facility] Potassium [Moles/Vol] 4.3 mmol/L 3.5-5.1 [facility] Protein [Mass/Vol] 7.7 g/dL 6.4-8.2 [facility] Sodium [Moles/Vol] 134 mmol/L 136-145 [facility] Triglyceride [Mass/Vol] 179 mg/dL <199 [facility] Comment on above: The drugs N-Acetylcy steine and Metamizole may falsely depress this assay.Serum Triglycerides Reference Interval Normal <150 mg/dL Borderline high 150 - 199 mg/dL High 200 - 499 mg/dL Very High > or = 500 mg/dL WBC (Bld) [#/Vol] 7.7 10*3/uL 4.4-11.0 [facility] Determination of erythrocyte mean corpuscular volume (MCV)Ordered By: Bernabe Reese on 09-09-2023 MCV (RBC) [Entitic vol] 81.7 fL 80-94 [facility] Erythrocyte distribution wid th ratioOrdered By: Bernabe Reese on 09-09-2023 Erythrocyte distribution width (RBC) [Ratio] 14.6 % 11.6-14.[address] [facility] Erythrocyte distribution wid th standard deviationOrdered By: Bernabe Reese on 09-09-2023 Erythrocyte distribution width (RBC) [Entitic vol] 42.5 fL 35.1-43.9 [facility] Hematocrit Auto (Bld) [Volum e fraction]Ordered By: Bernabe Reese on 09-09-2023 Hematocrit (Bld) [Volume fraction] 43.2 % 40-[address] [facility] Immature granulocytes/100 WB C Auto (Bld)Ordered By: Bernabe Reese on 09-09-2023 Immature granulocytes/100 WBC (Bld) 0.500 % 0.0-0.[address] [facility] Comment on above: IG% - Immature Granu locytes (promyelocytes, myelocytes and metamyelocytes) > 1% indicates that a LEFT SHIFT is Present. Laboratory - Chemistry and C hemistry - challengeOrdered By: Bernabe Reese on 09-09-2023 Albumin/Globulin [Mass ratio] 0.7 {ratio} 0.9-2.[address] [facility] ALP [Catalytic activity/Vol] 91 U/L 45-[address] [facility] ALT [Catalytic activity/Vol] 22 U/L 16-[address] [facility] Cholesterol in HDL [Mass/Vol] 42 mg/dL >[address] [facility] Comment on above: The drugs N-Acetylcy steine and Metamizole may falsely depress this assay. Reference Range HDL <40 mg/dL Low HDL Cholesterol HDL >or= 60 mg/dL High HDL Cholesterol Cholesterol in LDL [Mass/Vol] 80 mg/dL 0-[address] [facility] CO2 [Moles/Vol] 26.0 mmol/L 21.0-32.[address] [facility] Globulin (S) [Mass/Vol] 4.6 g/dL 2.2-4.2 [facility] Urea nitrogen/Creatinine [Mass ratio] 20.3 mg/mg 10-[address] [facility] - Hematology and Cell countsOrdered By: Bernabe Reese on 09-09-2023 MCH (RBC) [Entitic mass] 25.3 pg 27.0-32.[address] [facility] MCHC (RBC) [Mass/Vol] 31.0 g/dL 32-36 [facility] Nucleated RBC/100 WBC (Bld) [Ratio] 0 % 0-[address] [facility] Platelet mean volume (Bld) [Entitic vol] 10.8 fL 6.2-12.[address] [facility] Platelets (Bld) [#/Vol] 204 10*3/uL 150-[address] [facility] No Panel InformationOrdered By: Bernabe Reese on 09-09-2023 Estimated GFR (MDRD) Amer 110 mL/min >[address] [facility] Comment on above: GFR Calc Estimated GFR (MDRD) Non-Af Amer 91 mL/min >[address] [facility] Comment on above: Non- GFR Calc VLDL Cholesterol 36 mg/dL 5-[address] [facility] RBC Auto (Bld) [#/Vol]Ordere d By: Bernabe Reese on 09-09-2023 RBC (Bld) [#/Vol] 5.29 10*6/uL 4.6-6.2 [facility] Serum or plasma calcium everardo urement (mass/volume)Ordered By: Bernabe Reese on 09-09-2023 Calcium [Mass/Vol] 9.2 mg/dL 8.5-10.1 [facility] Serum or plasma creatinine m easurement (mass/volume)Ordered By: Bernabe Reese on 09-09-2023 Creatinine [Mass/Vol] 0.88 mg/dL 0.70-1.30 [facility] Comment on above: The validity of the calculated GFR & GFRAA in patients over 70 years has not been determined. Clinical correlation is essential. Serum or plasma urea nitroge n measurement (mass/volume)Ordered By: Bernabe Reese on 09-09-2023 Urea nitrogen [Mass/Vol] 18 mg/dL 7-[address] [facility] Thin prep Papanicolaou smear with manual screeningOrdered By: Bernabe Reese on 09-09-2023 Thin prep Papanicolaou smear with manual screening 3.1 g/dL 3.2-5.[address] [facility] Thin prep Papanicolaou smear with manual screening 23 U/L 15-[address] [facility] Thin prep Papanicolaou smear with manual screening 8 5-[address] [facility] Whole blood hemoglobin A1c/t otal hemoglobin ratio (mass fraction)Ordered By: Bernabe Reese on 09-09-2023 HbA1c (Bld) [Mass fraction] 9.6 % 3.8-5.[address] [facility] Comment on above: Normal < 5.7 % Predi abetic 5.7 - 6.4 % Diabetic >or= 6.5 % Please note range changes. Absolute lymphocyte countOrd ered By: Bernabe Reese on 07-11-2023 Lymphocytes Auto (Unsp spec) [#/Vol] 1.91 10*3/uL 0.83-4.[address] [facility] Automated lymphocyte count a s percentage of total leukocytesOrdered By: Bernabe Christiansenmarilynn on 07-11-2023 Lymphocytes/100 WBC Auto (Unsp spec) 24.9 % 19-[address] [facility] Basophil percentageOrdered B y: Bernabe Avilesbubba on 07-11-2023 Basophil percentage 0 SEEN /hpf 0-5 [facility] Basophils/100 WBC (Bld) 0.7 % 0-1 [facility] Bilirubin [Mass/Vol] 0.40 mg/dL 0.20-1.00 [facility] Comment on above: For patients on eltr ombopag therapy, use of Dimension [place] TBIL is not recommended. Chloride [Moles/Vol] 105 mmol/L 98-107 [facility] Cholesterol [Mass/Vol] 172 mg/dL <200 [facility] Comment on above: <200 mg/dL Desirable 200-240 mg/dL Borderline >240 mg/dL High Risk Eosinophils/100 WBC (Bld) 2.6 % 0-[address] [facility] Glucose [Mass/Vol] 224 mg/dL 74-106 [facility] Comment on above: Glucose result great er than or equal to 200 mg/dLsuggests DIABETES MELLITUS per A.D.A. criteria. Hemoglobin (Bld) [Mass/Vol] 12.3 g/dL 13.0-16.[address] [facility] Monocytes/100 WBC (Bld) 6.5 % 0-10 [facility] Neutrophils (Bld) [#/Vol] 5.0 10*3/uL 2.0-7.[address] [facility] Neutrophils/100 WBC (Bld) 65.0 % 47-[address] [facility] Potassium [Moles/Vol] 3.7 mmol/L 3.5-5.1 [facility] Protein [Mass/Vol] 7.4 g/dL 6.4-8.2 [facility] Sodium [Moles/Vol] 141 mmol/L 136-145 [facility] Triglyceride [Mass/Vol] 182 mg/dL <199 [facility] Comment on above: The drugs N-Acetylcy steine and Metamizole may falsely depress this assay.Serum Triglycerides Reference Interval Normal <150 mg/dL Borderline high 150 - 199 mg/dL High 200 - 499 mg/dL Very High > or = 500 mg/dL WBC (Bld) [#/Vol] 7.7 10*3/uL 4.4-11.0 [facility] Bilirubin Test strip Ql (U)O rdered By: Bernabe Reese on 07-11-2023 Bilirubin Ql (U) Negative Negative [facility] Determination of erythrocyte mean corpuscular volume (MCV)Ordered By: Bernabe Reese on 07-11-2023 MCV (RBC) [Entitic vol] 82.7 fL 80-94 [facility] Erythrocyte distribution wid th ratioOrdered By: Bernabe Reese on 07-11-2023 Erythrocyte distribution width (RBC) [Ratio] 14.8 % 11.6-14.[address] [facility] Erythrocyte distribution wid th standard deviationOrdered By: Bernabe Reese on 07-11-2023 Erythrocyte distribution width (RBC) [Entitic vol] 44.7 fL 35.1-43.9 [facility] Hematocrit Auto (Bld) [Volum e fraction]Ordered By: Bernabe Reese on 07-11-2023 Hematocrit (Bld) [Volume fraction] 39.3 % 40-[address] [facility] Immature granulocytes/100 WB C Auto (Bld)Ordered By: Bernabe Reese on 07-11-2023 Immature granulocytes/100 WBC (Bld) 0.300 % 0.0-0.[address] [facility] Comment on above: IG% - Immature Granu locytes (promyelocytes, myelocytes and metamyelocytes) > 1% indicates that a LEFT SHIFT is Present. Ketones Test strip Ql (U)Ord ered By: Bernabe Reese on 07-11-2023 Ketones Ql (U) Negative Negative [facility] - Chemistry and C hemistry - challengeOrdered By: Bernabe Reese on 07-11-2023 Albumin/Creatinine DL <= 1.0 mg/L (24H U) [Ratio] 234.6 mg/g CRE <[address] [facility] Albumin/Globulin [Mass ratio] 0.7 {ratio} 0.9-2.[address] [facility] ALP [Catalytic activity/Vol] 89 U/L 45-[address] [facility] ALT [Catalytic activity/Vol] 23 U/L 16-[address] [facility] Cholesterol in HDL (Body fld) [Mass/Vol] 46 mg/dL >[address] [facility] Comment on above: The drugs N-Acetylcy steine and Metamizole may falsely depress this assay. Reference Range HDL <40 mg/dL Low HDL Cholesterol HDL >or= 60 mg/dL High HDL Cholesterol Cholesterol in LDL (Body fld) [Moles/Vol] 90 mg/dL 0-[address] [facility] Cholesterol in VLDL Calc [Moles/Vol] 36 mg/dL 5-[address] [facility] CO2 [Moles/Vol] 29.0 mmol/L 21.0-32.[address] [facility] Globulin (S) [Mass/Vol] 4.4 g/dL 2.2-4.2 [facility] Magnesium [Mass/Vol] 1.8 mg/dL 1.6-2.6 [facility] Urea nitrogen/Creatinine [Mass ratio] 14.8 mg/mg 10-[address] [facility] - Hematology and Cell countsOrdered By: Bernabe Reese on 07-11-2023 MCH (RBC) [Entitic mass] 25.9 pg 27.0-32.[address] [facility] MCHC (RBC) [Mass/Vol] 31.3 g/dL 32-36 [facility] Nucleated RBC/100 WBC (Bld) [Ratio] 0 % 0-[address] [facility] Platelets (Bld) [#/Vol] 180 10*3/uL 150-[address] [facility] Mucus LM Ql (Urine sed)Order ed By: Bernabe Reese on 07-11-2023 Mucus Ql (Urine sed) 0 SEEN /hpf [facility] Nitrite Test strip Ql (U)Ord ered By: Bernabe Reese on 07-11-2023 Nitrite Ql (U) Negative Negative [facility] No Panel InformationOrdered By: Bernabe Reese on 07-11-2023 Estimated GFR (MDRD) Amer 121 mL/min >[address] [facility] Comment on above: GFR Calc Estimated GFR (MDRD) Non-Af Amer 100 mL/min >[address] [facility] Comment on above: Non- GFR Calc Urine RBC 0 SEEN /hpf 0-[address] [facility] Platelet mean volume Oscar-Ec ker (Bld) [Entitic vol]Ordered By: Bernabe Reese on 07-11-2023 Platelet mean volume (Bld) [Entitic vol] 10.6 fL 6.2-12.[address] [facility] Protein Test strip Ql (U)Ord ered By: Bernabe Reese on 07-11-2023 Protein Ql (U) 30 mg/dl Negative [facility] RBC Auto (Bld) [#/Vol]Ordere d By: Bernabe Reese on 07-11-2023 RBC (Bld) [#/Vol] 4.75 10*6/uL 4.6-6.2 [facility] Serum or plasma calcium everardo urement (mass/volume)Ordered By: Bernabe Reese on 07-11-2023 Calcium [Mass/Vol] 9.3 mg/dL 8.5-10.1 [facility] Serum or plasma creatinine m easurement (mass/volume)Ordered By: Bernabe Reese on 07-11-2023 Creatinine [Mass/Vol] 0.81 mg/dL 0.70-1.30 [facility] Comment on above: The validity of the calculated GFR & GFRAA in patients over 70 years has not been determined. Clinical correlation is essential. Serum or plasma thyroid stim ulating hormone (TSH) measurement (units/volume)Ordered By: Bernabe Reese on 07-11-2023 TSH Qn 1.12 uIU/mL 0.358-3.[address] [facility] Serum or plasma urea nitroge n measurement (mass/volume)Ordered By: Bernabe Reese on 07-11-2023 Urea nitrogen [Mass/Vol] 12 mg/dL 7-[address] [facility] Squamous epithelial cells de tection in urine sediment by light microscopyOrdered By: Bernabe Reese on 07-11-2023 Epithelial cells.squamous LM Ql (Urine sed) 0-5 SEEN /hpf 0-[address] [facility] Thin prep Papanicolaou smear with manual screeningOrdered By: Bernabe Reese on 07-11-2023 Thin prep Papanicolaou smear with manual screening 3.0 g/dL 3.2-5.[address] [facility] Thin prep Papanicolaou smear with manual screening 22 U/L 15-[address] [facility] Thin prep Papanicolaou smear with manual screening 7 5-[address] [facility] Thin prep Papanicolaou smear with manual screening 305.0 mg/L NO RANGE EST. [facility] Urine blood detectionOrdered By: Bernabe Reese on 07-11-2023 RBC Ql (U) 10 /ul Negative [facility] Urine clarityOrdered By: Ruiz Reese on 07-11-2023 Clarity (U) Clear Clear [facility] Urine color determinationOrd ered By: Bernabe Reese on 07-11-2023 Color (U) Yellow Yellow [facility] Urine creatinine measurement (mass/volume)Ordered By: Bernabe Reese on 07-11-2023 Creatinine (U) [Mass/Vol] 130.00 mg/dL NO RANGE EST. [facility] Urine glucose detectionOrder ed By: Bernabe Reese on 07-11-2023 Glucose Ql (U) 250 mg/dl Normal [facility] Urine leukocyte esterase det ection by dipstickOrdered By: Bernabe Reese on 07-11-2023 Leukocyte esterase Test strip Ql (U) Negative Negative [facility] Urine pHOrdered By: Bernabe mac on 07-11-2023 pH (U) 5.0 [pH] 5.0 - 8.[address] [facility] Urine sediment bacteria coun t by microscopy (number/high power field)Ordered By: Bernabe Reese on 07-11-2023 Bacteria LM.HPF (Urine sed) [#/Area] 0 /[HPF] None Seen [facility] Urine specific gravity measu rementOrdered By: Bernabe Reese on 07-11-2023 Specific gravity (U) [Rel density] 1.025 1.002-1.[address] [facility] Urine urobilinogen measureme ntOrdered By: Bernabe Reese on 07-11-2023 Urobilinogen Ql (U) Normal mg/dl Normal [facility] Whole blood hemoglobin A1c/t otal hemoglobin ratio (mass fraction)Ordered By: Bernabe Reese on 07-11-2023 HbA1c (Bld) [Mass fraction] 9.8 % 3.8-5.[address] [facility] Comment on above: Normal < 5.7 % Predi abetic 5.7 - 6.4 % Diabetic >or= 6.5 % Please note range changes. Absolute lymphocyte countOrd ered By: Julee Spain on 05-23-2023 Lymphocytes Auto (Unsp spec) [#/Vol] 2.17 10*3/uL 0.83-4.[address] [facility] Basophil percentageOrdered B y: Julee Spain on 05-23-2023 Basophils/100 WBC (Bld) 0.5 % 0-1 [facility] Chloride [Moles/Vol] 102 mmol/L 98-107 [facility] Eosinophils/100 WBC (Bld) 3.0 % 0-[address] [facility] Glucose [Mass/Vol] 166 mg/dL 74-106 [facility] Comment on above: Fasting Glucose resu lt greater than or equal to 126 mg/dL suggests DIABETES MELLITUS per A.D.A. criteria. Neutrophils (Bld) [#/Vol] 6.8 10*3/uL 2.0-7.[address] [facility] Neutrophils/100 WBC (Bld) 67.7 % 47-[address] [facility] Potassium [Moles/Vol] 3.8 mmol/L 3.5-5.1 [facility] Sodium [Moles/Vol] 137 mmol/L 136-145 [facility] WBC (Bld) [#/Vol] 10.1 10*3/uL 4.4-11.0 [facility] Blood erythrocytes count (nu mber/volume)Ordered By: Julee Spain on 05-23-2023 RBC (Bld) [#/Vol] 4.82 10*6/uL 4.6-6.2 [facility] Blood hemoglobin measurement (mass/volume)Ordered By: Julee Spain on 05-23-2023 Hemoglobin (Bld) [Mass/Vol] 12.5 g/dL 13.0-16.[address] [facility] Blood lymphocytes/100 leukoc ytesOrdered By: Julee Spain on 05-23-2023 Lymphocytes/100 WBC (Bld) 21.5 % 19-[address] [facility] Blood monocytes/100 leukocyt esOrdered By: Julee Spain on 05-23-2023 Monocytes/100 WBC (Bld) 6.8 % 0-10 [facility] Blood platelet mean volumeOr dered By: uJlee Spain on 05-23-2023 Platelet mean volume (Bld) [Entitic vol] 9.7 fL 6.2-12.[address] [facility] Determination of erythrocyte mean corpuscular volume (MCV)Ordered By: Julee Spain on 05-23-2023 MCV (RBC) [Entitic vol] 84.0 fL 80-94 [facility] Glucose Glucometer (BldC) [M ass/Vol]Ordered By: Julee Spain on 05-23-2023 Glucose [Mass/Vol] 175 mg/dL 74-106 [facility] Comment on above: MANAGEMENT OF PATIEN T CARE PER NURSING PROTOCOL Hematocrit Auto (Bld) [Volum e fraction]Ordered By: Julee Spain on 05-23-2023 Hematocrit (Bld) [Volume fraction] 40.5 % 40-[address] [facility] - Chemistry and C hemistry - challengeOrdered By: Julee Spain on 05-23-2023 CO2 [Moles/Vol] 32.0 mmol/L 21.0-32.[address] [facility] Urea nitrogen/Creatinine [Mass ratio] 24.5 mg/mg 10-[address] [facility] - Hematology and Cell countsOrdered By: Julee Spain on 05-23-2023 Erythrocyte distribution width (RBC) [Entitic vol] 42.7 fL 35.1-43.9 [facility] Erythrocyte distribution width (RBC) [Ratio] 14.1 % 11.6-14.[address] [facility] Immature granulocytes/100 WBC (Bld) 0.500 % 0.0-0.[address] [facility] Comment on above: IG% - Immature Granu locytes (promyelocytes, myelocytes and metamyelocytes) > 1% indicates that a LEFT SHIFT is Present. MCH (RBC) [Entitic mass] 25.9 pg 27.0-32.[address] [facility] Nucleated RBC/100 WBC (Bld) [Ratio] 0 % 0-[address] [facility] MCHC Auto (RBC) [Mass/Vol]Or dered By: Julee Spain on 05-23-2023 MCHC (RBC) [Mass/Vol] 30.9 g/dL 32-36 [facility] No Panel InformationOrdered By: Julee Spain on 05-23-2023 Estimated Creatinine Clearance Calc 83.41 ml/min [facility] Estimated GFR (MDRD) Amer 121 mL/min >[address] [facility] Comment on above: GFR Calc Estimated GFR (MDRD) Non-Af Amer 100 mL/min >[address] [facility] Comment on above: Non- GFR Calc Platelets bldOrdered By: Blanca Spain on 05-23-2023 Platelets (Bld) [#/Vol] 209 10*3/uL 150-[address] [facility] Serum or plasma calcium everardo urement (mass/volume)Ordered By: Julee Spain on 05-23-2023 Calcium [Mass/Vol] 8.6 mg/dL 8.5-10.1 [facility] Serum or plasma creatinine m easurement (mass/volume)Ordered By: Julee Spain on 05-23-2023 Creatinine [Mass/Vol] 0.82 mg/dL 0.70-1.30 [facility] Comment on above: The validity of the calculated GFR & GFRAA in patients over 70 years has not been determined. Clinical correlation is essential. Serum or plasma urea nitroge n measurement (mass/volume)Ordered By: Julee Spain on 05-23-2023 Urea nitrogen [Mass/Vol] 20 mg/dL 7-[address] [facility] Thin prep Papanicolaou smear with manual screeningOrdered By: Julee Spain on 05-23-2023 Thin prep Papanicolaou smear with manual screening 3 5-[address] [facility] Assessment of wrist artery p atency prior to arterial punctureOrdered By: Julee Spain on 05-22-2023 Arterial patency Wrist artery --pre arterial puncture Positive [facility] Base excessOrdered By: Marilee Spain on 05-22-2023 Base excess Calc (BldV) [Moles/Vol] 3 mmol/L -2-[address] [facility] Basophil percentageOrdered B y: Julee Spain on 05-22-2023 Basophil percentage 27.7 mmol/L 22-26 [facility] Basophils/100 WBC (Bld) 93 % 95-99 [facility] Basophil percentageOrdered B y: Haily Santos on 05-22-2023 Lactate [Moles/Vol] 1.1 mmol/L 0.4-2.0 [facility] CO2 (BldA) [Partial pressure ]Ordered By: Julee Spain on 05-22-2023 CO2 (Bld) [Partial pressure] 46.4 mm[Hg] 35-[address] [facility] No Panel InformationOrdered By: Julee Spain on 05-22-2023 Blood Gas Sample Site L Radial [facility] Blood Gas Specimen Type ART [facility] Blood Gas Total CO2 29 mmol/L [facility] Blood Gas Vent Mode Not entered [facility] Oxygen Delivery Device Room Air [facility] Oxygen (BldA) [Partial press ure]Ordered By: Julee Spain on 05-22-2023 Oxygen (Bld) [Partial pressure] 68 mmHG 75-[address] [facility] Serum or plasma trough vanco mycin levelOrdered By: Haily Santos on 05-22-2023 Vancomycin trough [Mass/Vol] 20.0 ug/mL 5.0-15.[address] [facility] Comment on above: VANCOMYCIN STANDARED DRUG THERAPY TROUGH LEVEL: 5.0 - 15.0 mg/L VANCOMYCIN HIGH INTENSITY THERAPY TROUGH LEVEL: 15.0 - 20.0 mg/L High Intensity therapy recommended for serious lifethreatening infections include:- Gmljvttgnf-Imnmqlbzkrhw-Lednqmtvg (Ventilator/Healtcare Associated)-Sepsis PLEASE CONTACT PHARMACY SERVICES (#7144) FOR INTERPRETATIONOF RESULTS. Whole blood hemoglobin A1c/t otal hemoglobin ratio (mass fraction)Ordered By: Haily Santos on 05-22-2023 HbA1c (Bld) [Mass fraction] 10.4 % 3.8-5.[address] [facility] Comment on above: Normal < 5.7 % Predi abetic 5.7 - 6.4 % Diabetic >or= 6.5 % Please note range changes. pH measurementOrdered By: Opal Spain on 05-22-2023 pH (Unsp spec) 7.38 [pH] 7.35-7.[address] [facility] Basophil percentageOrdered B y: Sourav Kim on 05-21-2023 Basophil percentage 0 SEEN /hpf 0-5 [facility] Bilirubin Test strip Ql (U)O rdered By: Sourav Kim on 05-21-2023 Bilirubin Ql (U) Negative Negative [facility] Culture, urineOrdered By: Theresa Luevano on 05-21-2023 Bacteria identified Cx Nom (U) Positive [facility] Bacteria identified Cx Nom (U) Positive [facility] Influenza virus A and B and SARS-CoV-2 (COVID-19) Ag panel - Upper respiratory specimOrdered By: Sourav Kim on 05-21-2023 SARS-CoV-2 (COVID-19) RNA BILL+probe Ql (Resp) [facility] Ketones Test strip Ql (U)Ord ered By: Sourav Kim on 05-21-2023 Ketones Ql (U) 5 mg/dl Negative [facility] - Chemistry and C hemistry - challengeOrdered By: Sourav Kim on 05-21-2023 Natriuretic peptide B (Bld) [Mass/Vol] 29.8 pg/mL 0-[address] [facility] - Microbiology an d Antimicrobial susceptibilityOrdered By: Sourav Kim on 05-21-2023 Bacteria identified Cx Nom (Bld) No growth in [address] [facility] Mucus LM Ql (Urine sed)Order ed By: Sourav Kim on 05-21-2023 Mucus Ql (Urine sed) 0 SEEN /hpf [facility] Nitrite Test strip Ql (U)Ord ered By: Sourav Kim on 05-21-2023 Nitrite Ql (U) Negative Negative [facility] No Panel InformationOrdered By: Sourav Kim on 05-21-2023 Troponin I High Sensitivity 10 pg/mL 3.0-78.[address] [facility] Comment on above: Please Note: New [facility] t Units and Gender Specific Reference Ranges. For more information see Policy Stat Procedure [place] High Sensitivity Troponin (TNIH) and attachments. Protein Test strip Ql (U)Ord ered By: Sourav Kim on 05-21-2023 Protein Ql (U) 30 mg/dl Negative [facility] Serum or plasma C reactive p rotein measurement (mass/volume)Ordered By: Haily Santos on 05-21-2023 CRP [Mass/Vol] 159.00 mg/L 0.0-3.[address] [facility] Comment on above: C-Reactive Protein ( CRP) provides useful information for thediagnosis, therapy and monitoring of inflammatory processesand associated diseases. For the evaluation of Relative Riskfor Cardiovascular Disease, a High Sensitivity CRP (HSCRP)should be ordered. Squamous epithelial cells de tection in urine sediment by light microscopyOrdered By: Sourav Kim on 05-21-2023 Epithelial cells.squamous LM Ql (Urine sed) 0-5 SEEN /hpf 0-[address] [facility] Upper respiratory specimen i nfluenza A virus, influenza B virus, and severe acute resOrdered By: Sourav Kim on 05-21-2023 Upper respiratory specimen influenza A virus, influenza B virus, and severe acute res [facility] Urine blood detectionOrdered By: Sourav Kim on 05-21-2023 RBC Ql (U) 10 /ul Negative [facility] RBC Ql (U) 0 SEEN /hpf 0-[address] [facility] Urine clarityOrdered By: Jocelyn Kim on 05-21-2023 Clarity (U) Clear Clear [facility] Urine color determinationOrd ered By: Sourav Kim on 05-21-2023 Color (U) Yellow Yellow [facility] Urine glucose detectionOrder ed By: Sourav Kim on 05-21-2023 Glucose Ql (U) 1000 mg/dl Normal [facility] Urine leukocyte esterase det ection by dipstickOrdered By: Sourav Kim on 05-21-2023 Leukocyte esterase Test strip Ql (U) Negative Negative [facility] Urine pHOrdered By: Sourav yañez on 05-21-2023 pH (U) 5.0 [pH] 5.0 - 8.[address] [facility] Urine sediment bacteria coun t by microscopy (number/high power field)Ordered By: Sourav Kim on 05-21-2023 Bacteria LM.HPF (Urine sed) [#/Area] RARE /hpf None Seen [facility] Urine sediment uric acid cry stal count by microscopy (number/high power field)Ordered By: Sourav Kim on 05-21-2023 Urate crystals LM.HPF (Urine sed) [#/Area] RARE /hpf [facility] Urine specific gravity measu rementOrdered By: oSurav Kim on 05-21-2023 Specific gravity (U) [Rel density] 1.020 1.002-1.[address] [facility] Urobilinogen Auto test strip Ql (U)Ordered By: Sourav Kim on 05-21-2023 Urobilinogen Ql (U) Normal mg/dl Normal [facility] Absolute lymphocyte countOrd ered By: Bernabe Reese on 04-15-2023 Lymphocytes Auto (Unsp spec) [#/Vol] 2.21 10*3/uL 0.83-4.[address] [facility] Basophil percentageOrdered B y: Bernabe Reese on 04-15-2023 Basophils/100 WBC (Bld) 0.7 % 0-1 [facility] Bilirubin [Mass/Vol] 0.30 mg/dL 0.20-1.00 [facility] Comment on above: For patients on eltr ombopag therapy, use of Dimension [place] TBIL is not recommended. Chloride [Moles/Vol] 102 mmol/L 98-107 [facility] Cholesterol [Mass/Vol] 127 mg/dL <200 [facility] Comment on above: <200 mg/dL Desirable 200-240 mg/dL Borderline >240 mg/dL High Risk Eosinophils/100 WBC (Bld) 2.1 % 0-[address] [facility] Glucose [Mass/Vol] 322 mg/dL 74-106 [facility] Comment on above: Glucose result great er than or equal to 200 mg/dLsuggests DIABETES MELLITUS per A.D.A. criteria. Neutrophils (Bld) [#/Vol] 5.7 10*3/uL 2.0-7.[address] [facility] Neutrophils/100 WBC (Bld) 65.4 % 47-[address] [facility] Potassium [Moles/Vol] 4.6 mmol/L 3.5-5.1 [facility] Protein [Mass/Vol] 7.8 g/dL 6.4-8.2 [facility] Sodium [Moles/Vol] 137 mmol/L 136-145 [facility] Triglyceride [Mass/Vol] 283 mg/dL <199 [facility] Comment on above: The drugs N-Acetylcy steine and Metamizole may falsely depress this assay.Serum Triglycerides Reference Interval Normal <150 mg/dL Borderline high 150 - 199 mg/dL High 200 - 499 mg/dL Very High > or = 500 mg/dL WBC (Bld) [#/Vol] 8.7 10*3/uL 4.4-11.0 [facility] Blood erythrocytes count (nu mber/volume)Ordered By: Bernabe Reese on 04-15-2023 RBC (Bld) [#/Vol] 5.02 10*6/uL 4.6-6.2 [facility] Blood hemoglobin measurement (mass/volume)Ordered By: Bernabe Reese on 04-15-2023 Hemoglobin (Bld) [Mass/Vol] 13.0 g/dL 13.0-16.[address] [facility] Blood lymphocytes/100 leukoc ytesOrdered By: Bernabe Reese on 04-15-2023 Lymphocytes/100 WBC (Bld) 25.3 % 19-[address] [facility] Blood monocytes/100 leukocyt esOrdered By: Bernabe Reese on 04-15-2023 Monocytes/100 WBC (Bld) 6.2 % 0-10 [facility] Blood platelet mean volumeOr dered By: Bernabe Reese on 04-15-2023 Platelet mean volume (Bld) [Entitic vol] 10.3 fL 6.2-12.[address] [facility] Determination of erythrocyte mean corpuscular volume (MCV)Ordered By: Bernabe Reese on 04-15-2023 MCV (RBC) [Entitic vol] 84.9 fL 80-94 [facility] [facility] Hematocrit Auto (Bld) [Volum e fraction]Ordered By: Bernabe Reese on 04-15-2023 Hematocrit (Bld) [Volume fraction] 42.6 % 40-[address] [facility] Iron measurement (mass/mass) Ordered By: Bernabe Reese on 04-15-2023 Iron (Unsp spec) [Mass/Mass] 71 ug/dL 65-[address] [facility] Laboratory - Chemistry and C hemistry - challengeOrdered By: Bernabe Reese on 04-15-2023 ALP [Catalytic activity/Vol] 82 U/L 45-[address] [facility] ALT [Catalytic activity/Vol] 25 U/L 16-[address] [facility] CO2 [Moles/Vol] 31.0 mmol/L 21.0-32.[address] [facility] Globulin (S) [Mass/Vol] 4.6 g/dL 2.2-4.2 [facility] Magnesium [Mass/Vol] 2.0 mg/dL 1.6-2.6 [facility] Urea nitrogen/Creatinine [Mass ratio] 20.0 mg/mg 10-[address] [facility] Laboratory - Hematology and Cell countsOrdered By: Bernabe Reese on 04-15-2023 Erythrocyte distribution width (RBC) [Entitic vol] 43.5 fL 35.1-43.9 [facility] Erythrocyte distribution width (RBC) [Ratio] 14.2 % 11.6-14.[address] [facility] Immature granulocytes/100 WBC (Bld) 0.300 % 0.0-0.[address] [facility] Comment on above: IG% - Immature Granu locytes (promyelocytes, myelocytes and metamyelocytes) > 1% indicates that a LEFT SHIFT is Present. MCH (RBC) [Entitic mass] 25.9 pg 27.0-32.[address] [facility] Nucleated RBC/100 WBC (Bld) [Ratio] 0 % 0-[address] [facility] MCHC Auto (RBC) [Mass/Vol]Or dered By: Bernabe Reese on 04-15-2023 MCHC (RBC) [Mass/Vol] 30.5 g/dL 32-36 [facility] No Panel InformationOrdered By: Bernabe Reese on 04-15-2023 Estimated GFR (MDRD) Amer 90 mL/min >[address] [facility] Comment on above: GFR Calc Estimated GFR (MDRD) Non-Af Amer 75 mL/min >[address] [facility] Comment on above: Non- GFR Calc Prostate Specific Antigen Screen 2.52 ng/mL 0.00-4.[address] [facility] Comment on above: This test was perfor med using the [facility] method [facility]. Values obtained with differentassay methods cannot be used interchangably.When changing PSA assays in the course of monitoring apatient, additional sequential testing should be carriedout to confirm baseline values. Thyroid Stimulating Hormone (TSH) 1.07 uIU/mL 0.358-3.[address] [facility] Total Iron Binding Capacity 368 ug/dL 250-[address] [facility] Platelets bldOrdered By: Ruiz Reese on 04-15-2023 Platelets (Bld) [#/Vol] 218 10*3/uL 150-[address] [facility] Serum or plasma albumin everardo urement (mass/volume)Ordered By: Bernabe Reese on 04-15-2023 Albumin [Mass/Vol] 3.2 g/dL 3.2-5.0 [facility] Serum or plasma albumin/glob ulin mass ratioOrdered By: Bernabe Reese on 04-15-2023 Albumin/Globulin [Mass ratio] 0.7 {ratio} 0.9-2.[address] [facility] Serum or plasma calcium everardo urement (mass/volume)Ordered By: Bernabe Reese on 04-15-2023 Calcium [Mass/Vol] 9.8 mg/dL 8.5-10.1 [facility] Serum or plasma cholesterol in HDL measurement (mass/volume)Ordered By: Bernabe Reese on 04-15-2023 Cholesterol in HDL [Mass/Vol] 37 mg/dL >[address] [facility] Comment on above: The drugs N-Acetylcy steine and Metamizole may falsely depress this assay. Reference Range HDL <40 mg/dL Low HDL Cholesterol HDL >or= 60 mg/dL High HDL Cholesterol Serum or plasma cholesterol in VLDL measurement (mass/volume)Ordered By: Bernabe Reese on 04-15-2023 Cholesterol in VLDL [Mass/Vol] 57 mg/dL 5-[address] [facility] Serum or plasma creatinine m easurement (mass/volume)Ordered By: Bernabe Reese on 04-15-2023 Creatinine [Mass/Vol] 1.05 mg/dL 0.70-1.30 [facility] Comment on above: The validity of the calculated GFR & GFRAA in patients over 70 years has not been determined. Clinical correlation is essential. Serum or plasma ferritin hilda surement (mass/volume)Ordered By: Bernabe Reese on 04-15-2023 Ferritin [Mass/Vol] 33 ng/mL 26-388 [facility] Serum or plasma low density lipoprotein (LDL) cholesterol measurement (mass/volume)Ordered By: Bernabe Reese on 04-15-2023 Cholesterol in LDL [Mass/Vol] 33 mg/dL 0-[address] [facility] Serum or plasma urea nitroge n measurement (mass/volume)Ordered By: Bernabe Reese on 04-15-2023 Urea nitrogen [Mass/Vol] 21 mg/dL 7-[address] [facility] Thin prep Papanicolaou smear with manual screeningOrdered By: Bernabe Reese on 04-15-2023 Thin prep Papanicolaou smear with manual screening 20 U/L 15-[address] [facility] Thin prep Papanicolaou smear with manual screening 4 5-[address] [facility] Whole blood hemoglobin A1c/t otal hemoglobin ratio (mass fraction)Ordered By: Bernabe Reese on 04-15-2023 HbA1c (Bld) [Mass fraction] 10.2 % 3.8-5.[address] [facility] Comment on above: Normal < 5.7 % Predi abetic 5.7 - 6.4 % Diabetic >or= 6.5 % Please note range changes. Absolute lymphocyte countOrd ered By: Dr. Zimmerman on 12-03-2022 Lymphocytes Auto (Unsp spec) [#/Vol] 1.91 10*3/uL 0.83-4.[address] [facility] Basophil percentageOrdered B y: Dr. Zimmerman on 12-03-2022 Basophils/100 WBC (Bld) 0.6 % 0-1 [facility] Chloride [Moles/Vol] 104 mmol/L 98-107 [facility] Eosinophils/100 WBC (Bld) 2.2 % 0-[address] [facility] Glucose [Mass/Vol] 193 mg/dL 74-106 [facility] Comment on above: Fasting Glucose resu lt greater than or equal to 126 mg/dL suggests DIABETES MELLITUS per A.D.A. criteria. Neutrophils (Bld) [#/Vol] 6.0 10*3/uL 2.0-7.[address] [facility] Neutrophils/100 WBC (Bld) 66.9 % 47-[address] [facility] Potassium [Moles/Vol] 4.0 mmol/L 3.5-5.1 [facility] Sodium [Moles/Vol] 139 mmol/L 136-145 [facility] WBC (Bld) [#/Vol] 9.0 10*3/uL 4.4-11.0 [facility] Blood erythrocytes count (nu mber/volume)Ordered By: Dr. Zimmerman on 12-03-2022 RBC (Bld) [#/Vol] 4.72 10*6/uL 4.6-6.2 [facility] Blood hemoglobin measurement (mass/volume)Ordered By: Dr. Zimmerman on 12-03-2022 Hemoglobin (Bld) [Mass/Vol] 13.0 g/dL 13.0-16.[address] [facility] Blood lymphocytes/100 leukoc ytesOrdered By: Dr. Zimmerman on 12-03-2022 Lymphocytes/100 WBC (Bld) 21.3 % 19-[address] [facility] Blood monocytes/100 leukocyt esOrdered By: Dr. Zimmerman on 12-03-2022 Monocytes/100 WBC (Bld) 7.9 % 0-10 [facility] Blood platelet mean volumeOr dered By: Dr. Zimmerman on 12-03-2022 Platelet mean volume (Bld) [Entitic vol] 10.1 fL 6.2-12.[address] [facility] COVID-19 virus antigen assay Ordered By: Dr. Zimmerman on 12-03-2022 SARS-CoV-2 (COVID-19) Ag IA.rapid Ql (Resp) [facility] Determination of erythrocyte mean corpuscular volume (MCV)Ordered By: Dr. Zimmerman on 12-03-2022 MCV (RBC) [Entitic vol] 84.7 fL 80-94 [facility] Glucose Glucometer (BldC) [M ass/Vol]Ordered By: Dr. Zimmerman on 12-03-2022 Glucose [Mass/Vol] 218 mg/dL 74-106 [facility] Comment on above: MANAGEMENT OF PATIEN T CARE PER NURSING PROTOCOL Hematocrit Auto (Bld) [Volum e fraction]Ordered By: Dr. Zimmerman on 12-03-2022 Hematocrit (Bld) [Volume fraction] 40.0 % 40-[address] [facility] Laboratory - Chemistry and C hemistry - challengeOrdered By: Dr. Zimmerman on 12-03-2022 CO2 [Moles/Vol] 29.0 mmol/L 21.0-32.[address] [facility] Urea nitrogen/Creatinine [Mass ratio] 27.8 mg/mg 10-[address] [facility] Laboratory - Hematology and Cell countsOrdered By: Dr. Zimmerman on 12-03-2022 Erythrocyte distribution width (RBC) [Entitic vol] 43.1 fL 35.1-43.9 [facility] Erythrocyte distribution width (RBC) [Ratio] 13.9 % 11.6-14.[address] [facility] Immature granulocytes/100 WBC (Bld) 1.100 % 0.0-0.[address] [facility] Comment on above: IG% - Immature Granu locytes (promyelocytes, myelocytes and metamyelocytes) > 1% indicates that a LEFT SHIFT is Present. MCH (RBC) [Entitic mass] 27.5 pg 27.0-32.[address] [facility] Nucleated RBC/100 WBC (Bld) [Ratio] 0 % 0-[address] [facility] MCHC Auto (RBC) [Mass/Vol]Or dered By: Dr. Zimmerman on 12-03-2022 MCHC (RBC) [Mass/Vol] 32.5 g/dL 32-36 [facility] No Panel InformationOrdered By: Dr. Zimmerman on 12-03-2022 Estimated Creatinine Clearance Calc 68.40 ml/min [facility] Estimated GFR (MDRD) Amer 169 mL/min >[address] [facility] Comment on above: GFR Calc Estimated GFR (MDRD) Non-Af Amer 139 mL/min >[address] [facility] Comment on above: Non- GFR Calc Platelets bldOrdered By: Dr. Zimmerman on 12-03-2022 Platelets (Bld) [#/Vol] 191 10*3/uL 150-[address] [facility] Serum or plasma calcium everardo urement (mass/volume)Ordered By: Dr. Zimmerman on 12-03-2022 Calcium [Mass/Vol] 8.9 mg/dL 8.5-10.1 [facility] Serum or plasma creatinine m easurement (mass/volume)Ordered By: Dr. Zimmerman on 12-03-2022 Creatinine [Mass/Vol] 0.61 mg/dL 0.70-1.30 [facility] Comment on above: The validity of the calculated GFR & GFRAA in patients over 70 years has not been determined. Clinical correlation is essential. Serum or plasma urea nitroge n measurement (mass/volume)Ordered By: Dr. Zimmerman on 12-03-2022 Urea nitrogen [Mass/Vol] 17 mg/dL 7-[address] [facility] Thin prep Papanicolaou smear with manual screeningOrdered By: Dr. Zimmerman on 12-03-2022 Thin prep Papanicolaou smear with manual screening 6 5-[address] [facility] Laboratory - Microbiology an d Antimicrobial susceptibilityOrdered By: Dr. Bailey on 12-02-2022 Bacteria identified Cx Nom (Bld) Streptococcus agalactiae (B) [facility] Culture, urineOrdered By: Dr Evette Bailey on 12-01-2022 Bacteria identified Cx Nom (U) Streptococcus agalactiae (B) [facility] Bacteria identified Cx Nom (U) Presumptive C albicans [facility] Basophil percentageOrdered B y: Dr. Bailey on 11-28-2022 Lactate [Moles/Vol] 1.7 mmol/L 0.4-2.0 [facility] Basophil percentage >100 SEEN /hpf 0-5 [facility] Bilirubin [Mass/Vol] 1.10 mg/dL 0.20-1.00 [facility] Comment on above: For patients on eltr ombopag therapy, use of Dimension [place] TBIL is not recommended. Protein [Mass/Vol] 7.6 g/dL 6.4-8.2 [facility] Bilirubin Test strip Ql (U)O rdered By: Dr. Bailey on 11-28-2022 Bilirubin Ql (U) Negative Negative [facility] INR in Blood by Coagulation assayOrdered By: Dr. Bailey on 11-28-2022 INR Coag (Bld) [Relative time] 1.4 {INR} [facility] Ketones Test strip Ql (U)Ord ered By: Dr. Bailey on 11-28-2022 Ketones Ql (U) 150 mg/dl Negative [facility] Comment on above: CRITICAL VALUE *HCRI TICAL VALUE VERIFIED. CALLED TO ALONA CURTIS11/28/22 1201 Lupis Balbuena.RESULTS READ BACK BY SAME . Laboratory - Chemistry and C hemistry - challengeOrdered By: Dr. Bailey on 11-28-2022 ALP [Catalytic activity/Vol] 92 U/L 45-[address] [facility] ALT [Catalytic activity/Vol] 26 U/L 16-[address] [facility] CK [Catalytic activity/Vol] 544 U/L 39-[address] [facility] Globulin (S) [Mass/Vol] 4.4 g/dL 2.2-4.2 [facility] Laboratory - CoagulationOrde red By: Dr. Bailey on 11-28-2022 aPTT Coag (Bld) [Time] 28.2 s 24.1-36.2 [facility] PT Coag (PPP) [Time] 17.1 s 11.7-14.9 [facility] Mucus LM Ql (Urine sed)Order ed By: Dr. Bailey on 11-28-2022 Mucus Ql (Urine sed) 0 SEEN /hpf [facility] Nitrite Test strip Ql (U)Ord ered By: Dr. Bailey on 11-28-2022 Nitrite Ql (U) Negative Negative [facility] No Panel InformationOrdered By: Dr. Zimmerman on 11-28-2022 Troponin I High Sensitivity 65 pg/mL 3.0-78.[address] [facility] Comment on above: Please Note: New [place] [facility] t Units and Gender Specific Reference Ranges. For more information see Policy Stat Procedure [place] High Sensitivity Troponin (TNIH) and attachments. No Panel InformationOrdered By: Dr. Bailey on 11-28-2022 Ethyl Alcohol Level < 3.0 mg/dL [facility] Comment on above: The serum:whole bloo d ethanol ratio is approximately 1.14and varies slightly with hematocrit. Medical Alcohol reference interval and critical value innon-tolerant individuals; 50 - 100 Impairment 100 Intoxication 100 - 250 Severe Poisoning 250 - 400 Deep/possible fatal coma Protein Test strip Ql (U)Ord ered By: Dr. Bailey on 11-28-2022 Protein Ql (U) 100 mg/dl Negative [facility] Serum or plasma albumin everardo urement (mass/volume)Ordered By: Dr. Bailey on 11-28-2022 Albumin [Mass/Vol] 3.2 g/dL 3.2-5.0 [facility] Serum or plasma albumin/glob ulin mass ratioOrdered By: Dr. Bailey on 11-28-2022 Albumin/Globulin [Mass ratio] 0.7 {ratio} 0.9-2.[address] [facility] Squamous epithelial cells de tection in urine sediment by light microscopyOrdered By: Dr. Bailey on 11-28-2022 Epithelial cells.squamous LM Ql (Urine sed) 0-5 SEEN /hpf 0-[address] [facility] Thin prep Papanicolaou smear with manual screeningOrdered By: Dr. Bailey on 11-28-2022 Thin prep Papanicolaou smear with manual screening 38 U/L 15-[address] [facility] Urine blood detectionOrdered By: Dr. Bailey on 11-28-2022 RBC Ql (U) 250 /ul Negative [facility] RBC Ql (U) 10-25 SEEN /hpf 0-[address] [facility] Urine clarityOrdered By: Dr. Bailey on 11-28-2022 Clarity (U) Cloudy Clear [facility] Urine color determinationOrd ered By: Dr. Bailey on 11-28-2022 Color (U) Yellow Yellow [facility] Urine glucose detectionOrder ed By: Dr. Bailey on 11-28-2022 Glucose Ql (U) 1000 mg/dl Normal [facility] Urine leukocyte esterase det ection by dipstickOrdered By: Dr. Bailey on 11-28-2022 Leukocyte esterase Test strip Ql (U) 500 /ul Negative [facility] Urine pHOrdered By: Dr. Becca alcantara on 11-28-2022 pH (U) 5.0 [pH] 5.0 - 8.[address] [facility] Urine sediment bacteria coun t by microscopy (number/high power field)Ordered By: Dr. Bailey on 11-28-2022 Bacteria LM.HPF (Urine sed) [#/Area] 3 /[HPF] None Seen [facility] Urine specific gravity measu rementOrdered By: Dr. Bailey on 11-28-2022 Specific gravity (U) [Rel density] 1.020 1.002-1.[address] [facility] Urobilinogen Auto test strip Ql (U)Ordered By: Dr. Bailey on 11-28-2022 Urobilinogen Ql (U) Normal mg/dl Normal [facility] Absolute lymphocyte countOrd ered By: Dr. Reese on 10-22-2022 Lymphocytes Auto (Unsp spec) [#/Vol] 2.52 10*3/uL 0.83-4.[address] [facility] Basophil percentageOrdered B y: Dr. Reese on 10-22-2022 Basophils/100 WBC (Bld) 0.6 % 0-1 [facility] Bilirubin [Mass/Vol] 0.50 mg/dL 0.20-1.00 [facility] Comment on above: For patients on eltr ombopag therapy, use of Dimension [place] TBIL is not recommended. Chloride [Moles/Vol] 98 mmol/L 98-107 [facility] Cholesterol [Mass/Vol] 170 mg/dL <200 [facility] Comment on above: <200 mg/dL Desirable 200-240 mg/dL Borderline >240 mg/dL High Risk Eosinophils/100 WBC (Bld) 2.5 % 0-[address] [facility] Glucose [Mass/Vol] 244 mg/dL 74-106 [facility] Comment on above: Glucose result great er than or equal to 200 mg/dLsuggests DIABETES MELLITUS per A.D.A. criteria. Neutrophils (Bld) [#/Vol] 6.7 10*3/uL 2.0-7.[address] [facility] Neutrophils/100 WBC (Bld) 65.8 % 47-[address] [facility] Potassium [Moles/Vol] 4.4 mmol/L 3.5-5.1 [facility] Protein [Mass/Vol] 7.2 g/dL 6.4-8.2 [facility] Sodium [Moles/Vol] 136 mmol/L 136-145 [facility] Triglyceride [Mass/Vol] 221 mg/dL <199 [facility] Comment on above: The drugs N-Acetylcy steine and Metamizole may falsely depress this assay.Serum Triglycerides Reference Interval Normal <150 mg/dL Borderline high 150 - 199 mg/dL High 200 - 499 mg/dL Very High > or = 500 mg/dL WBC (Bld) [#/Vol] 10.1 10*3/uL 4.4-11.0 [facility] Blood erythrocytes count (nu mber/volume)Ordered By: Dr. Reese on 10-22-2022 RBC (Bld) [#/Vol] 5.32 10*6/uL 4.6-6.2 [facility] Blood hemoglobin measurement (mass/volume)Ordered By: Dr. Reese on 10-22-2022 Hemoglobin (Bld) [Mass/Vol] 14.5 g/dL 13.0-16.[address] [facility] Blood lymphocytes/100 leukoc ytesOrdered By: Dr. Reese on 10-22-2022 Lymphocytes/100 WBC (Bld) 24.9 % 19-[address] [facility] Blood monocytes/100 leukocyt esOrdered By: Dr. Reese on 10-22-2022 Monocytes/100 WBC (Bld) 5.9 % 0-10 [facility] Blood platelet mean volumeOr dered By: Dr. Reese on 10-22-2022 Platelet mean volume (Bld) [Entitic vol] 11.0 fL 6.2-12.[address] [facility] Determination of erythrocyte mean corpuscular volume (MCV)Ordered By: Dr. Reese on 10-22-2022 MCV (RBC) [Entitic vol] 85.2 fL 80-94 [facility] Hematocrit Auto (Bld) [Volum e fraction]Ordered By: Dr. Reese on 10-22-2022 Hematocrit (Bld) [Volume fraction] 45.3 % 40-[address] [facility] Iron measurement (mass/mass) Ordered By: Dr. Reese on 10-22-2022 Iron (Unsp spec) [Mass/Mass] 65 ug/dL 65-[address] [facility] Laboratory - Chemistry and C hemistry - challengeOrdered By: Dr. Reese on 10-22-2022 ALP [Catalytic activity/Vol] 88 U/L 45-[address] [facility] ALT [Catalytic activity/Vol] 36 U/L 16-[address] [facility] CO2 [Moles/Vol] 30.0 mmol/L 21.0-32.[address] [facility] Globulin (S) [Mass/Vol] 4.1 g/dL 2.2-4.2 [facility] Magnesium [Mass/Vol] 1.7 mg/dL 1.6-2.6 [facility] Urea nitrogen/Creatinine [Mass ratio] 19.2 mg/mg 10-[address] [facility] Laboratory - Hematology and Cell countsOrdered By: Dr. Reese on 10-22-2022 Erythrocyte distribution width (RBC) [Entitic vol] 41.1 fL 35.1-43.9 [facility] Erythrocyte distribution width (RBC) [Ratio] 13.5 % 11.6-14.[address] [facility] Immature granulocytes/100 WBC (Bld) 0.300 % 0.0-0.[address] [facility] Comment on above: IG% - Immature Granu locytes (promyelocytes, myelocytes and metamyelocytes) > 1% indicates that a LEFT SHIFT is Present. MCH (RBC) [Entitic mass] 27.3 pg 27.0-32.[address] [facility] Nucleated RBC/100 WBC (Bld) [Ratio] 0 % 0-[address] [facility] MCHC Auto (RBC) [Mass/Vol]Or dered By: Dr. Reese on 10-22-2022 MCHC (RBC) [Mass/Vol] 32.0 g/dL 32-36 [facility] No Panel InformationOrdered By: Dr. Reese on 10-22-2022 Estimated GFR (MDRD) Amer 138 mL/min >[address] [facility] Comment on above: GFR Calc Estimated GFR (MDRD) Non-Af Amer 114 mL/min >[address] [facility] Comment on above: Non- GFR Calc Total Iron Binding Capacity 308 ug/dL 250-[address] [facility] Urine Microalbumin/Creatinine Ratio 90.4 mg/g CRE <[address] [facility] Platelets bldOrdered By: Dr. Reese on 10-22-2022 Platelets (Bld) [#/Vol] 193 10*3/uL 150-[address] [facility] Serum or plasma albumin everardo urement (mass/volume)Ordered By: Dr. Reese on 10-22-2022 Albumin [Mass/Vol] 3.1 g/dL 3.2-5.0 [facility] Serum or plasma albumin/glob ulin mass ratioOrdered By: Dr. Reese on 10-22-2022 Albumin/Globulin [Mass ratio] 0.8 {ratio} 0.9-2.[address] [facility] Serum or plasma calcium everardo urement (mass/volume)Ordered By: Dr. Reese on 10-22-2022 Calcium [Mass/Vol] 9.0 mg/dL 8.5-10.1 [facility] Serum or plasma cholesterol in HDL measurement (mass/volume)Ordered By: Dr. Reese on 10-22-2022 Cholesterol in HDL [Mass/Vol] 35 mg/dL >[address] [facility] Comment on above: The drugs N-Acetylcy steine and Metamizole may falsely depress this assay. Reference Range HDL <40 mg/dL Low HDL Cholesterol HDL >or= 60 mg/dL High HDL Cholesterol Serum or plasma cholesterol in VLDL measurement (mass/volume)Ordered By: Dr. Reese on 10-22-2022 Cholesterol in VLDL [Mass/Vol] 44 mg/dL 5-[address] [facility] Serum or plasma creatinine m easurement (mass/volume)Ordered By: Dr. Reese on 10-22-2022 Creatinine [Mass/Vol] 0.73 mg/dL 0.70-1.30 [facility] Comment on above: The validity of the calculated GFR & GFRAA in patients over 70 years has not been determined. Clinical correlation is essential. Serum or plasma ferritin hilda surement (mass/volume)Ordered By: Dr. Reese on 10-22-2022 Ferritin [Mass/Vol] 60 ng/mL 26-388 [facility] Serum or plasma low density lipoprotein (LDL) cholesterol measurement (mass/volume)Ordered By: Dr. Reese on 10-22-2022 Cholesterol in LDL [Mass/Vol] 91 mg/dL 0-[address] [facility] Serum or plasma urea nitroge n measurement (mass/volume)Ordered By: Dr. Reese on 10-22-2022 Urea nitrogen [Mass/Vol] 14 mg/dL 7-[address] [facility] Thin prep Papanicolaou smear with manual screeningOrdered By: Dr. Reese on 10-22-2022 Thin prep Papanicolaou smear with manual screening 30 U/L 15-[address] [facility] Thin prep Papanicolaou smear with manual screening 8 5-[address] [facility] Thin prep Papanicolaou smear with manual screening 91.3 mg/L NO RANGE EST. [facility] Urine creatinine measurement (mass/volume)Ordered By: Dr. Reese on 10-22-2022 Creatinine (U) [Mass/Vol] 101.00 mg/dL NO RANGE EST. [facility] Whole blood hemoglobin A1c/t otal hemoglobin ratio (mass fraction)Ordered By: Dr. Reese on 10-22-2022 HbA1c (Bld) [Mass fraction] 9.9 % 3.8-5.[address] [facility] Comment on above: Normal < 5.7 % Predi abetic 5.7 - 6.4 % Diabetic >or= 6.5 % Please note range changes. Absolute lymphocyte countOrd ered By: Dr. Reese on 07-15-2022 Lymphocytes Auto (Unsp spec) [#/Vol] 2.42 10*3/uL 0.83-4.[address] [facility] Basophil percentageOrdered B y: Dr. Reese on 07-15-2022 Basophils/100 WBC (Bld) 0.6 % 0-1 [facility] Bilirubin [Mass/Vol] 0.50 mg/dL 0.20-1.00 [facility] Comment on above: For patients on eltr ombopag therapy, use of Dimension [place] TBIL is not recommended. Chloride [Moles/Vol] 100 mmol/L 98-107 [facility] Cholesterol [Mass/Vol] 182 mg/dL <200 [facility] Comment on above: <200 mg/dL Desirable 200-240 mg/dL Borderline >240 mg/dL High Risk Eosinophils/100 WBC (Bld) 1.9 % 0-[address] [facility] Glucose [Mass/Vol] 258 mg/dL 74-106 [facility] Comment on above: Glucose result great er than or equal to 200 mg/dLsuggests DIABETES MELLITUS per A.D.A. criteria. Neutrophils (Bld) [#/Vol] 5.3 10*3/uL 2.0-7.[address] [facility] Neutrophils/100 WBC (Bld) 62.2 % 47-[address] [facility] Potassium [Moles/Vol] 4.3 mmol/L 3.5-5.1 [facility] Protein [Mass/Vol] 6.9 g/dL 6.4-8.2 [facility] Sodium [Moles/Vol] 138 mmol/L 136-145 [facility] Triglyceride [Mass/Vol] 236 mg/dL <199 [facility] Comment on above: The drugs N-Acetylcy steine and Metamizole may falsely depress this assay.Serum Triglycerides Reference Interval Normal <150 mg/dL Borderline high 150 - 199 mg/dL High 200 - 499 mg/dL Very High > or = 500 mg/dL WBC (Bld) [#/Vol] 8.6 10*3/uL 4.4-11.0 [facility] Blood erythrocytes count (nu mber/volume)Ordered By: Dr. Reese on 07-15-2022 RBC (Bld) [#/Vol] 5.37 10*6/uL 4.6-6.2 [facility] Blood hemoglobin measurement (mass/volume)Ordered By: Dr. Reese on 07-15-2022 Hemoglobin (Bld) [Mass/Vol] 14.9 g/dL 13.0-16.[address] [facility] Blood lymphocytes/100 leukoc ytesOrdered By: Dr. Reese on 07-15-2022 Lymphocytes/100 WBC (Bld) 28.2 % 19-[address] [facility] Blood monocytes/100 leukocyt esOrdered By: Dr. Reese on 07-15-2022 Monocytes/100 WBC (Bld) 6.8 % 0-10 [facility] Blood platelet mean volumeOr dered By: Dr. Reese on 07-15-2022 Platelet mean volume (Bld) [Entitic vol] 10.7 fL 6.2-12.[address] [facility] Determination of erythrocyte mean corpuscular volume (MCV)Ordered By: Dr. Reese on 07-15-2022 MCV (RBC) [Entitic vol] 83.8 fL 80-94 [facility] Hematocrit Auto (Bld) [Volum e fraction]Ordered By: Dr. Reese on 07-15-2022 Hematocrit (Bld) [Volume fraction] 45.0 % 40-[address] [facility] Iron measurement (mass/mass) Ordered By: Dr. Reese on 07-15-2022 Iron (Unsp spec) [Mass/Mass] 60 ug/dL 65-[address] [facility] Laboratory - Chemistry and C hemistry - challengeOrdered By: Dr. Reese on 07-15-2022 ALP [Catalytic activity/Vol] 100 U/L 45-[address] [facility] ALT [Catalytic activity/Vol] 27 U/L 16-[address] [facility] CO2 [Moles/Vol] 27.0 mmol/L 21.0-32.[address] [facility] Globulin (S) [Mass/Vol] 3.8 g/dL 2.2-4.2 [facility] Magnesium [Mass/Vol] 1.7 mg/dL 1.6-2.6 [facility] Urea nitrogen/Creatinine [Mass ratio] 17.3 mg/mg 10-[address] [facility] Laboratory - Hematology and Cell countsOrdered By: Dr. Reese on 07-15-2022 Erythrocyte distribution width (RBC) [Entitic vol] 43.1 fL 35.1-43.9 [facility] Erythrocyte distribution width (RBC) [Ratio] 14.4 % 11.6-14.[address] [facility] Immature granulocytes/100 WBC (Bld) 0.300 % 0.0-0.[address] [facility] Comment on above: IG% - Immature Granu locytes (promyelocytes, myelocytes and metamyelocytes) > 1% indicates that a LEFT SHIFT is Present. MCH (RBC) [Entitic mass] 27.7 pg 27.0-32.[address] [facility] Nucleated RBC/100 WBC (Bld) [Ratio] 0 % 0-[address] [facility] MCHC Auto (RBC) [Mass/Vol]Or dered By: Dr. Reese on 07-15-2022 MCHC (RBC) [Mass/Vol] 33.1 g/dL 32-36 [facility] No Panel InformationOrdered By: Dr. Reese on 07-15-2022 Estimated GFR (MDRD) Amer 133 mL/min >[address] [facility] Comment on above: GFR Calc Estimated GFR (MDRD) Non-Af Amer 110 mL/min >[address] [facility] Comment on above: Non- GFR Calc Thyroid Stimulating Hormone (TSH) 1.81 uIU/mL 0.358-3.[address] [facility] Total Iron Binding Capacity 349 ug/dL 250-[address] [facility] Platelets bldOrdered By: Dr. Reese on 07-15-2022 Platelets (Bld) [#/Vol] 181 10*3/uL 150-[address] [facility] Serum or plasma albumin everardo urement (mass/volume)Ordered By: Dr. Reese on 07-15-2022 Albumin [Mass/Vol] 3.1 g/dL 3.2-5.0 [facility] Serum or plasma albumin/glob ulin mass ratioOrdered By: Dr. Reese on 07-15-2022 Albumin/Globulin [Mass ratio] 0.8 {ratio} 0.9-2.[address] [facility] Serum or plasma calcium everardo urement (mass/volume)Ordered By: Dr. Reese on 07-15-2022 Calcium [Mass/Vol] 8.7 mg/dL 8.5-10.1 [facility] Serum or plasma cholesterol in HDL measurement (mass/volume)Ordered By: Dr. Reese on 07-15-2022 Cholesterol in HDL [Mass/Vol] 42 mg/dL >[address] [facility] Comment on above: The drugs N-Acetylcy steine and Metamizole may falsely depress this assay. Reference Range HDL <40 mg/dL Low HDL Cholesterol HDL >or= 60 mg/dL High HDL Cholesterol Serum or plasma cholesterol in VLDL measurement (mass/volume)Ordered By: Dr. Reese on 07-15-2022 Cholesterol in VLDL [Mass/Vol] 47 mg/dL 5-[address] [facility] Serum or plasma creatinine m easurement (mass/volume)Ordered By: Dr. Reese on 07-15-2022 Creatinine [Mass/Vol] 0.75 mg/dL 0.70-1.30 [facility] Comment on above: The validity of the calculated GFR & GFRAA in patients over 70 years has not been determined. Clinical correlation is essential. Serum or plasma ferritin hilda surement (mass/volume)Ordered By: Dr. Reese on 07-15-2022 Ferritin [Mass/Vol] 40 ng/mL 26-388 [facility] Serum or plasma low density lipoprotein (LDL) cholesterol measurement (mass/volume)Ordered By: Dr. Reese on 07-15-2022 Cholesterol in LDL [Mass/Vol] 93 mg/dL 0-[address] [facility] Serum or plasma urea nitroge n measurement (mass/volume)Ordered By: Dr. Reese on 07-15-2022 Urea nitrogen [Mass/Vol] 13 mg/dL 7-[address] [facility] Thin prep Papanicolaou smear with manual screeningOrdered By: Dr. Reese on 07-15-2022 Thin prep Papanicolaou smear with manual screening 18 U/L 15-[address] [facility] Thin prep Papanicolaou smear with manual screening 11 5-[address] [facility] Whole blood hemoglobin A1c/t otal hemoglobin ratio (mass fraction)Ordered By: Dr. Reese on 07-15-2022 HbA1c (Bld) [Mass fraction] 10.2 % 3.8-5.[address] [facility] Comment on above: Normal < 5.7 % Predi abetic 5.7 - 6.4 % Diabetic >or= 6.5 % Please note range changes. Absolute lymphocyte counton 01-19-2022 Lymphocytes Auto (Unsp spec) [#/Vol] 2.55 10*3/uL 0.83-4.[address] [facility] Work Phone: Basophil percentageon 2021 Basophils/100 WBC (Bld) 0.4 % 0-1 [facility] Work Phone: Bilirubin [Mass/Vol] 0.50 mg/dL 0.20-1.00 [facility] Work Phone: Comment on above: For patients on eltr ombopag therapy, use of Dimension [place] TBIL is not recommended. Chloride [Moles/Vol] 101 mmol/L 98-107 [facility] Work Phone: Cholesterol [Mass/Vol] 200 mg/dL <200 [facility] Work Phone: Comment on above: <200 mg/dL Desirable 200-240 mg/dL Borderline >240 mg/dL High Risk Eosinophils/100 WBC (Bld) 1.9 % 0-[address] [facility] Work Phone: Glucose [Mass/Vol] 217 mg/dL 74-106 [facility] Work Phone: Comment on above: Glucose result great er than or equal to 200 mg/dLsuggests DIABETES MELLITUS per A.D.A. criteria. Neutrophils (Bld) [#/Vol] 5.2 10*3/uL 2.0-7.[address] [facility] Work Phone: Neutrophils/100 WBC (Bld) 61.2 % 47-[address] [facility] Work Phone: Potassium [Moles/Vol] 4.2 mmol/L 3.5-5.1 [facility] Work Phone: Protein [Mass/Vol] 7.6 g/dL 6.4-8.2 [facility] Work Phone: Sodium [Moles/Vol] 137 mmol/L 136-145 [facility] Work Phone: Triglyceride [Mass/Vol] 386 mg/dL <199 [facility] Work Phone: Comment on above: The drugs N-Acetylcy steine and Metamizole may falsely depress this assay.Serum Triglycerides Reference Interval Normal <150 mg/dL Borderline high 150 - 199 mg/dL High 200 - 499 mg/dL Very High > or = 500 mg/dL WBC (Bld) [#/Vol] 8.5 10*3/uL 4.4-11.0 [facility] Work Phone: Blood erythrocytes count (nu mber/volume)on 01-19-2022 RBC (Bld) [#/Vol] 5.14 10*6/uL 4.6-6.2 [facility] Work Phone: Blood hemoglobin measurement (mass/volume)on 01-19-2022 Hemoglobin (Bld) [Mass/Vol] 13.9 g/dL 13.0-16.[address] [facility] Work Phone: Blood lymphocytes/100 leukoc yteson 01-19-2022 Lymphocytes/100 WBC (Bld) 30.0 % 19-[address] [facility] Work Phone: Blood monocytes/100 leukocyt eson 01-19-2022 Monocytes/100 WBC (Bld) 6.1 % 0-10 [facility] Work Phone: Blood platelet mean volumeon 01-19-2022 Platelet mean volume (Bld) [Entitic vol] 10.8 fL 6.2-12.[address] [facility] Work Phone: Determination of erythrocyte mean corpuscular volume (MCV)on 01-19-2022 MCV (RBC) [Entitic vol] 85.6 fL 80-94 [facility] Work Phone: Hematocrit Auto (Bld) [Volum e fraction]on 01-19-2022 Hematocrit (Bld) [Volume fraction] 44.0 % 40-[address] [facility] Work Phone: Iron measurement (mass/mass) on 01-19-2022 Iron (Unsp spec) [Mass/Mass] 62 ug/dL 65-[address] [facility] Work Phone: Laboratory - Chemistry and C hemistry - challengeon 01-19-2022 ALP [Catalytic activity/Vol] 83 U/L 45-[address] [facility] Work Phone: ALT [Catalytic activity/Vol] 48 U/L 16-[address] [facility] Work Phone: CO2 [Moles/Vol] 27.0 mmol/L 21.0-32.[address] [facility] Work Phone: Globulin (S) [Mass/Vol] 4.3 g/dL 2.2-4.2 [facility] Work Phone: Magnesium [Mass/Vol] 1.8 mg/dL 1.6-2.6 [facility] Work Phone: Urea nitrogen/Creatinine [Mass ratio] 18.4 mg/mg 10-[address] [facility] Work Phone: Laboratory - Hematology and Cell countson 01-19-2022 Erythrocyte distribution width (RBC) [Entitic vol] 43.0 fL 35.1-43.9 [facility] Work Phone: Erythrocyte distribution width (RBC) [Ratio] 14.0 % 11.6-14.[address] [facility] Work Phone: Immature granulocytes/100 WBC (Bld) 0.400 % 0.0-0.[address] [facility] Work Phone: Comment on above: IG% - Immature Granu locytes (promyelocytes, myelocytes and metamyelocytes) > 1% indicates that a LEFT SHIFT is Present. MCH (RBC) [Entitic mass] 27.0 pg 27.0-32.[address] [facility] Work Phone: Nucleated RBC/100 WBC (Bld) [Ratio] 0 % 0-[address] [facility] Work Phone: MCHC Auto (RBC) [Mass/Vol]on 01-19-2022 MCHC (RBC) [Mass/Vol] 31.6 g/dL 32-36 [facility] Work Phone: No Panel Informationon 01-19 Estimated GFR (MDRD) Amer 121 mL/min >[address] [facility] Work Phone: Comment on above: GFR Calc Estimated GFR (MDRD) Non-Af Amer 100 mL/min >[address] [facility] Work Phone: Comment on above: Non- GFR Calc Thyroid Stimulating Hormone (TSH) 1.09 uIU/mL 0.358-3.[address] [facility] Work Phone: Total Iron Binding Capacity 351 ug/dL 250-[address] [facility] Work Phone: Urine Microalbumin/Creatinine Ratio 281.7 mg/g CRE <[address] [facility] Work Phone: Platelets bldon 01-19-2022 Platelets (Bld) [#/Vol] 207 10*3/uL 150-[address] [facility] Work Phone: Serum or plasma albumin everardo urement (mass/volume)on 01-19-2022 Albumin [Mass/Vol] 3.3 g/dL 3.2-5.0 [facility] Work Phone: Serum or plasma albumin/glob ulin mass ratioon 01-19-2022 Albumin/Globulin [Mass ratio] 0.8 {ratio} 0.9-2.[address] [facility] Work Phone: Serum or plasma calcium everardo urement (mass/volume)on 01-19-2022 Calcium [Mass/Vol] 9.3 mg/dL 8.5-10.1 [facility] Work Phone: Serum or plasma cholesterol in HDL measurement (mass/volume)on 01-19-2022 Cholesterol in HDL [Mass/Vol] 36 mg/dL >[address] [facility] Work Phone: Comment on above: The drugs N-Acetylcy steine and Metamizole may falsely depress this assay. Reference Range HDL <40 mg/dL Low HDL Cholesterol HDL >or= 60 mg/dL High HDL Cholesterol Serum or plasma cholesterol in VLDL measurement (mass/volume)on 01-19-2022 Cholesterol in VLDL [Mass/Vol] 77 mg/dL 5-[address] [facility] Work Phone: Serum or plasma creatinine m easurement (mass/volume)on 01-19-2022 Creatinine [Mass/Vol] 0.82 mg/dL 0.70-1.30 [facility] Work Phone: Comment on above: The validity of the calculated GFR & GFRAA in patients over 70 years has not been determined. Clinical correlation is essential. Serum or plasma ferritin hilda surement (mass/volume)on 01-19-2022 Ferritin [Mass/Vol] 41 ng/mL 26-388 [facility] Work Phone: Serum or plasma low density lipoprotein (LDL) cholesterol measurement (mass/volume)on 01-19-2022 Cholesterol in LDL [Mass/Vol] 87 mg/dL 0-[address] [facility] Work Phone: Serum or plasma urea nitroge n measurement (mass/volume)on 01-19-2022 Urea nitrogen [Mass/Vol] 15 mg/dL 7-[address] [facility] Work Phone: Thin prep Papanicolaou smear with manual screeningon 01-19-2022 Thin prep Papanicolaou smear with manual screening 54 U/L 15-[address] [facility] Work Phone: Thin prep Papanicolaou smear with manual screening 9 5-[address] [facility] Work Phone: Thin prep Papanicolaou smear with manual screening 293.0 mg/L NO RANGE EST. [facility] Work Phone: Urine creatinine measurement (mass/volume)on 01-19-2022 Creatinine (U) [Mass/Vol] 104.00 mg/dL NO RANGE EST. [facility] Work Phone: Whole blood hemoglobin A1c/t otal hemoglobin ratio (mass fraction)on 01-19-2022 HbA1c (Bld) [Mass fraction] 10.3 % 3.8-5.[address] [facility] Work Phone: Comment on above: Normal < 5.7 % Predi abetic 5.7 - 6.4 % Diabetic >or= 6.5 % Please note range changes. Absolute lymphocyte counton 09-11-2021 Lymphocytes Auto (Unsp spec) [#/Vol] 2.41 10*3/uL 0.83-4.[address] [facility] Work Phone: Basophil percentageon 2021 Basophils/100 WBC (Bld) 0.5 % 0-1 [facility] Work Phone: Bilirubin [Mass/Vol] 0.40 mg/dL 0.20-1.00 [facility] Work Phone: Comment on above: For patients on eltr ombopag therapy, use of Dimension [place] TBIL is not recommended. Chloride [Moles/Vol] 101 mmol/L 98-107 [facility] Work Phone: Cholesterol [Mass/Vol] 174 mg/dL <200 [facility] Work Phone: Comment on above: <200 mg/dL Desirable 200-240 mg/dL Borderline >240 mg/dL High Risk Eosinophils/100 WBC (Bld) 2.2 % 0-[address] [facility] Work Phone: Glucose [Mass/Vol] 190 mg/dL 74-106 [facility] Work Phone: Comment on above: Fasting Glucose resu lt greater than or equal to 126 mg/dL suggests DIABETES MELLITUS per A.D.A. criteria. Neutrophils (Bld) [#/Vol] 4.2 10*3/uL 2.0-7.[address] [facility] Work Phone: Neutrophils/100 WBC (Bld) 57.2 % 47-[address] [facility] Work Phone: Potassium [Moles/Vol] 3.9 mmol/L 3.5-5.1 [facility] Work Phone: [phone] Protein [Mass/Vol] 7.4 g/dL 6.4-8.2 [facility] Work Phone: Sodium [Moles/Vol] 137 mmol/L 136-145 [facility] Work Phone: Triglyceride [Mass/Vol] 234 mg/dL [facility] Work Phone: Comment on above: The drugs N-Acetylcy steine and Metamizole may falsely depress this assay.Serum Triglycerides Reference Interval Normal <150 mg/dL Borderline high 150 - 199 mg/dL High 200 - 499 mg/dL Very High > or = 500 mg/dL WBC (Bld) [#/Vol] 7.3 10*3/uL 4.4-11.0 [facility] Work Phone: Blood erythrocytes count (nu mber/volume)on 09-11-2021 RBC (Bld) [#/Vol] 5.16 10*6/uL 4.6-6.2 [facility] Work Phone: Blood hemoglobin measurement (mass/volume)on 09-11-2021 Hemoglobin (Bld) [Mass/Vol] 14.2 g/dL 13.0-16.[address] [facility] Work Phone: [phone] Blood lymphocytes/100 leukoc yteson 09-11-2021 Lymphocytes/100 WBC (Bld) 33.1 % 19-[address] [facility] Work Phone: Blood monocytes/100 leukocyt eson 09-11-2021 Monocytes/100 WBC (Bld) 6.6 % 0-10 [facility] Work Phone: Blood platelet mean volumeon 09-11-2021 Platelet mean volume (Bld) [Entitic vol] 10.6 fL 6.2-12.[address] [facility] Work Phone: Determination of erythrocyte mean corpuscular volume (MCV)on 09-11-2021 MCV (RBC) [Entitic vol] 83.9 fL 80-94 [facility] Work Phone: Hematocrit Auto (Bld) [Volum e fraction]on 09-11-2021 Hematocrit (Bld) [Volume fraction] 43.3 % 40-[address] [facility] Work Phone: Iron measurement (mass/mass) on 09-11-2021 Iron (Unsp spec) [Mass/Mass] 62 ug/dL 65-[address] [facility] Work Phone: Laboratory - Chemistry and C hemistry - challengeon 09-11-2021 ALP [Catalytic activity/Vol] 95 U/L 45-[address] [facility] Work Phone: ALT [Catalytic activity/Vol] 29 U/L 16-[address] [facility] Work Phone: CO2 [Moles/Vol] 29.0 mmol/L 21.0-32.[address] [facility] Work Phone: Globulin (S) [Mass/Vol] 4.1 g/dL 2.2-4.2 [facility] Work Phone: Magnesium [Mass/Vol] 1.8 mg/dL 1.6-2.6 [facility] Work Phone: Urea nitrogen/Creatinine [Mass ratio] 25.8 mg/mg 10-[address] [facility] Work Phone: Laboratory - Hematology and Cell countson 09-11-2021 Erythrocyte distribution width (RBC) [Entitic vol] 42.2 fL 35.1-43.9 [facility] Work Phone: Erythrocyte distribution width (RBC) [Ratio] 13.8 % 11.6-14.[address] [facility] Work Phone: Immature granulocytes/100 WBC (Bld) 0.400 % 0.0-0.[address] [facility] Work Phone: Comment on above: IG% - Immature Granu locytes (promyelocytes, myelocytes and metamyelocytes) > 1% indicates that a LEFT SHIFT is Present. MCH (RBC) [Entitic mass] 27.5 pg 27.0-32.[address] [facility] Work Phone: Nucleated RBC/100 WBC (Bld) [Ratio] 0 % 0-[address] [facility] Work Phone: MCHC Auto (RBC) [Mass/Vol]on 09-11-2021 MCHC (RBC) [Mass/Vol] 32.8 g/dL 32-36 [facility] Work Phone: No Panel Informationon 09-11 Estimated GFR (MDRD) Amer 155 mL/min >[address] [facility] Work Phone: Comment on above: GFR Calc Estimated GFR (MDRD) Non-Af Amer 128 mL/min >[address] [facility] Work Phone: Comment on above: Non- GFR Calc Platelets bldon 09-11-2021 Platelets (Bld) [#/Vol] 174 10*3/uL 150-[address] [facility] Work Phone: Serum or plasma albumin everardo urement (mass/volume)on 09-11-2021 Albumin [Mass/Vol] 3.3 g/dL 3.2-5.0 [facility] Work Phone: Serum or plasma albumin/glob ulin mass ratioon 09-11-2021 Albumin/Globulin [Mass ratio] 0.8 {ratio} 0.9-2.[address] [facility] Work Phone: Serum or plasma calcium everardo urement (mass/volume)on 09-11-2021 Calcium [Mass/Vol] 8.5 mg/dL 8.5-10.1 [facility] Work Phone: Serum or plasma cholesterol in HDL measurement (mass/volume)on 09-11-2021 Cholesterol in HDL [Mass/Vol] 39 mg/dL [facility] Work Phone: Comment on above: The drugs N-Acetylcy steine and Metamizole may falsely depress this assay. Reference Range HDL <40 mg/dL Low HDL Cholesterol HDL >or= 60 mg/dL High HDL Cholesterol Serum or plasma cholesterol in VLDL measurement (mass/volume)on 09-11-2021 Cholesterol in VLDL [Mass/Vol] 47 mg/dL 5-[address] [facility] Work Phone: Serum or plasma creatinine m easurement (mass/volume)on 09-11-2021 Creatinine [Mass/Vol] 0.66 mg/dL 0.70-1.30 [facility] Work Phone: Comment on above: The validity of the calculated GFR & GFRAA in patients over 70 years has not been determined. Clinical correlation is essential. Serum or plasma ferritin hilda surement (mass/volume)on 09-11-2021 Ferritin [Mass/Vol] 28 ng/mL 26-388 [facility] Work Phone: Serum or plasma low density lipoprotein (LDL) cholesterol measurement (mass/volume)on 09-11-2021 Cholesterol in LDL [Mass/Vol] 88 mg/dL 0-[address] [facility] Work Phone: Serum or plasma urea nitroge n measurement (mass/volume)on 09-11-2021 Urea nitrogen [Mass/Vol] 17 mg/dL 7-[address] [facility] Work Phone: Thin prep Papanicolaou smear with manual screeningon 09-11-2021 Thin prep Papanicolaou smear with manual screening 23 U/L 15-[address] [facility] Work Phone: Thin prep Papanicolaou smear with manual screening 7 5-[address] [facility] Work Phone: Whole blood hemoglobin A1c/t otal hemoglobin ratio (mass fraction)on 09-11-2021 HbA1c (Bld) [Mass fraction] 9.5 % 3.8-5.[address] [facility] Work Phone: Comment on above: Normal < 5.7 % Predi abetic 5.7 - 6.4 % Diabetic >or= 6.5 % Please note range changes. Brain Natri. Peptideon 02-10 Natriuretic peptide B mass conc (Bld) Normal [facility] Comment on above: Result Comment: Pro- BNP Reference Range:Rule Out: <300[place] Zone: Age <50 300-450 Age 50-75 300-900 Age >75 300-1800Usually represents mild to moderate HF but other cardiopulmonary causes cannot be ruled out.Rule In: Age <50 >450 Age 50-75 >900 Age >75 >1800 Performed By: #### C DP, BNP, CP, TROPI ####[place] [id number] [facility] [address] [place] [address] Natriuretic peptide B mass conc (Bld) 48 pg/mL Normal <300 [facility] Comment on above: Result Comment: Pro- BNP results cannot be compared to BNP results. Performed By: #### C DP, BNP, CP, TROPI ####[place] [id number] [place] [address] CBC with Diffon 02-10-2018 Abs. Basophil 0.00 k/uL Normal 0.0-0.2 [facility] Comment on above: Performed By: #### C DP, BNP, CP, TROPI ####[place] [id number] [place] [address] Abs.Neutrophil (Seg) 5.70 k/uL Normal 2.1-6.5 [facility] Comment on above: Performed By: #### C DP, BNP, CP, TROPI ####[place] [id number] [facility] [place] [address] Auto Diff Performed YES Normal [facility] Comment on above: Performed By: #### C DP, BNP, CP, TROPI ####[place] [address] [place] [address] Basophils/100 WBC Auto (Bld) 0 % Normal 0-2 [facility] Comment on above: Performed By: #### C DP, BNP, CP, TROPI ####[place] [id number] [place] [address] Eosinophils Auto #/vol (Bld) 0.20 10*3/uL Normal 0.0-0.4 [facility] Comment on above: Performed By: #### C DP, BNP, CP, TROPI ####[facility] [facility] [address] [place] [address] Eosinophils/100 WBC Auto (Bld) 2 % Normal 0-5 [facility] Comment on above: Performed By: #### C DP, BNP, CP, TROPI ####[place] [address] [address] [facility] [address] [place] [address] Erythrocyte distribution width Auto Ratio (RBC) 14.9 % Normal 12.1-15.2 [facility] Comment on above: Performed By: #### C DP, BNP, CP, TROPI ####[address] [place] [address] Hematocrit Auto Volume Fraction (Bld) 40.1 % Low 41-53 [facility] Comment on above: Performed By: #### C DP, BNP, CP, TROPI ####[place] [address] [place] [address] Hemoglobin mass conc (Bld) 13.4 g/dL Low 13.5-17.5 [facility] Comment on above: Performed By: #### C DP, BNP, CP, TROPI ####[place] [id number] [facility] [address] [place] [address] Lymphocytes Auto #/vol (Bld) 1.80 10*3/uL Normal 1.0-4.8 [facility] Comment on above: Performed By: #### C DP, BNP, CP, TROPI ####[place] [id number] [facility] [address] [place] [address] Lymphocytes/100 WBC Auto (Bld) 22 % Normal 13-44 [facility] Comment on above: Performed By: #### C DP, BNP, CP, TROPI ####[place] [address] [facility] [place] [address] MCH Auto Entitic mass (RBC) 28.0 pg Normal 26-34 [facility] Comment on above: Performed By: #### C DP, BNP, CP, TROPI ####[address] [place] [address] MCHC Auto mass conc (RBC) 33.3 g/dL Normal 31-37 [facility] Comment on above: Performed By: #### C DP, BNP, CP, TROPI ####[address] [place] [address] MCV Auto Entitic volume (RBC) 84.0 fL Normal 80-100 [facility] Comment on above: Performed By: #### C DP, BNP, CP, TROPI ####[address] [place] [address] Monocytes Auto #/vol (Bld) 0.50 10*3/uL Normal 0.0-1.0 [facility] Comment on above: Performed By: #### C DP, BNP, CP, TROPI ####[address] [place] [address] Monocytes/100 WBC Auto (Bld) 6 % Normal 5-9 [facility] Comment on above: Performed By: #### C DP, BNP, CP, TROPI ####[address] [place] [address] Neutrophil (Seg) 70 % Normal 39-75 [facility] Comment on above: Performed By: #### C DP, BNP, CP, TROPI ####[address] [place] [address] Platelets Auto #/vol (Bld) 223 10*3/uL Normal 140-450 [facility] Comment on above: Performed By: #### C DP, BNP, CP, TROPI ####[facility] [facility] [place] [address] RBC Auto #/vol (Bld) 4.77 10*6/uL Normal 4.5-5.9 [facility] Comment on above: Performed By: #### C DP, BNP, CP, TROPI ####[address] [place] [address] WBC Auto #/vol (Bld) 8.3 10*3/uL Normal 3.5-11.0 [facility] Comment on above: Performed By: #### C DP, BNP, CP, TROPI ####[address] [place] [address] Abs.Imm.Granulocyte NOT REPORTED Normal 0.00-0.30 [facility] Comment on above: Performed By: #### C DP, BNP, CP, TROPI ####[address] [place] [address] Immature granulocytes #/vol (Bld) NOT REPORTED Normal 0 [facility] Comment on above: Performed By: #### C DP, BNP, CP, TROPI ####[address] [place] [address] NRBC Automated NOT REPORTED Normal [facility] Comment on above: Performed By: #### C DP, BNP, CP, TROPI ####[address] [place] [address] Platelet mean volume Auto Entitic volume (Bld) NOT REPORTED Normal 6.0-12.0 [facility] Comment on above: Performed By: #### C DP, BNP, CP, TROPI ####[place] [id number] [place] [address] Platelets Auto #/vol (Bld) NOT REPORTED Normal [facility] Comment on above: Performed By: #### C DP, BNP, CP, TROPI ####[place] [address] [facility] [place] [address] RBC morphology finding Nom (Bld) NOT REPORTED Normal [facility] Comment on above: Performed By: #### C DP, BNP, CP, TROPI ####[place] [address] [facility] [place] [address] WBC Morphology NOT REPORTED Normal [facility] Comment on above: Performed By: #### C DP, BNP, CP, TROPI ####[place] [address] [facility] [place] [address] Comp Metabolic Profon 2017 (cont.) Normal [facility] Comment on above: Result Comment: Aver age GFR for 60-69 years old: 85 mL/min/1.73sq mChronic Kidney Disease: <60 mL/min/1.73sq mKidney failure: <15 mL/min/1.73sq meGFR calculated using average adult body mass. Additional eGFR calculator available at:http://www.[employer]/multiple_crcl_2012.htm Performed By: #### C DP, BNP, CP, TROPI ####[place] [id number] [facility] [place] [address] Albumin mass conc 3.6 g/dL Normal 3.5-5.2 [facility] Comment on above: Performed By: #### C DP, BNP, CP, TROPI ####[place] [address] [facility] [place] [address]([phone] Alkaline Phos 89 U/L Normal 40-129 [facility] Comment on above: Performed By: #### C DP, BNP, CP, TROPI ####[place] [address] [facility] [place] [address](270) ALT enzyme act/vol 18 U/L Normal 5-41 [facility] Comment on above: Performed By: #### C DP, BNP, CP, TROPI ####[place] [address] [facility] [place] [address] Anion gap 3 molar conc 13 mmol/L Normal 9-17 [facility] Comment on above: Performed By: #### C DP, BNP, CP, TROPI ####[address] [place] [address] AST enzyme act/vol 19 U/L Normal <40 [facility] Comment on above: Performed By: #### C DP, BNP, CP, TROPI ####[address] [place] [address] Bilirubin Ql (U) 0.36 mg/dL Normal 0.30-1.20 [facility] Comment on above: Performed By: #### C DP, BNP, CP, TROPI ####[address] [place] [address] BUN/CRE Ratio 19 Normal 9-20 [facility] Comment on above: Performed By: #### C DP, BNP, CP, TROPI ####[address] [place] [address] Calcium mass conc 9.8 mg/dL Normal 8.6-10.4 [facility] Comment on above: Performed By: #### C DP, BNP, CP, TROPI ####[address] [place] [address] Chloride molar conc 97 mmol/L Low 98-107 [facility] Comment on above: Performed By: #### C DP, BNP, CP, TROPI ####[address] [place] [address] CO2 molar conc 27 mmol/L Normal 20-31 [facility] Comment on above: Performed By: #### C DP, BNP, CP, TROPI ####[address] [place] [address] Creatinine mass conc 0.67 mg/dL Low 0.70-1.20 [facility] Comment on above: Performed By: #### C DP, BNP, CP, TROPI ####[address] [place] [address] GFR, Amer >60 Normal >60 [facility] Comment on above: Performed By: #### C DP, BNP, CP, TROPI ####[address] [place] [address] GFR,non Amer >60 Normal >60 [facility] Comment on above: Performed By: #### C DP, BNP, CP, TROPI ####[address] [place] [address] Glucose mass conc 152 mg/dL High 70-99 [facility] Comment on above: Performed By: #### C DP, BNP, CP, TROPI ####[address] [place] [address] Potassium molar conc 3.9 mmol/L Normal 3.7-5.3 [facility] Comment on above: Performed By: #### C DP, BNP, CP, TROPI ####[address] [place] [address] Protein mass conc 6.8 g/dL Normal 6.4-8.3 [facility] Comment on above: Performed By: #### C DP, BNP, CP, TROPI ####[address] [place] [address] Sodium molar conc 137 mmol/L Normal 135-144 [facility] Comment on above: Performed By: #### C DP, BNP, CP, TROPI ####[address] [place] [address] Urea nitrogen mass conc 13 mg/dL Normal 8-23 [facility] Comment on above: Performed By: #### C DP, BNP, CP, TROPI ####[place] [address] [facility] [place] [address] Albumin/Globulin mass ratio NOT REPORTED Normal 1.0-2.5 [facility] Comment on above: Performed By: #### C DP, BNP, CP, TROPI ####[place] [address] [facility] [place] [address] Staging: NOT REPORTED Normal [facility] Comment on above: Performed By: #### C DP, BNP, CP, TROPI ####[place] [facility] [place] [address] ED Noteon 02-10-2018 HIM IP Note OR Palaeontologist Normal [facility] HIM IP Note OR Palaeontologist Normal [facility] HIM IP Note OR Palaeontologist Normal [facility] ED Provider Noteon 8 HIM IP Note OR Palaeontologist Normal [facility] Troponinon 02-10-2018 Troponin I.cardiac mass conc Normal [facility] Comment on above: Result Comment: Refe rence Range: <0.03 Within reference range. 0.03-0.09 Possible myocardial damage.Repeat at appropriate intervals to rule out chronic elevation. >= 0.10 Indicative of myocardial damage.Patients with high levels of Biotin oral intake (i.e >5mg/day) may have falsely decreased Troponin T levels. Samples collected within 8 hours of biotin intake may require additional information for diagnosis. Performed By: #### C DP, BNP, CP, TROPI ####[place] [address] [facility] [place] [address] Troponin T.cardiac mass conc ug/L Normal <0.03 [facility] Comment on above: Result Comment: Trop onin T results cannot be compared to Troponin-I results. Performed By: #### C DP, BNP, CP, TROPI ####[place] [address] [facility] [place] [address] Urinalysis, Routineon 2017 Acetaminophen mass conc Negative Normal NEG M [facility] Comment on above: Performed By: #### U A ####[facility] [place] [address] Bilirubin, SemiQt,Ur Negative Normal NEG [facility] Comment on above: Performed By: #### U A ####[facility] [place] [address] Color YELLOW Normal YEL [facility] Comment on above: Performed By: #### U A ####[facility] [place] [address] Comment Normal [facility] Comment on above: Performed By: #### U A ####[facility] [place] [address] Glucose,Semi-qnt,Ur Negative Normal NEG [facility] Comment on above: Performed By: #### U A ####[facility] [place] [address] Hemoglobin, Ur Negative Normal NEG [facility] Comment on above: Performed By: #### U A ####[facility] [place] [address] Leuckocyte Esterase Negative Normal NEG [facility] Comment on above: Performed By: #### U A ####[facility] [place] [address] Nitrite,Ur Negative Normal NEG [facility] Comment on above: Performed By: #### U A ####[facility] [place] [address] PH,Ur 6.5 Normal 5.0-8.0 [facility] Comment on above: Performed By: #### U A ####[facility] [place] [address] Protein mass conc Negative Normal NEG [facility] Comment on above: Performed By: #### U A ####[facility] [place] [address] Spec. Stacy,Ur 1.015 Normal 1.005-1.030 [facility] Comment on above: Performed By: #### U A ####[facility] [place] [address] Turbidity CLEAR Normal CLEAR [facility] Comment on above: Performed By: #### U A ####[facility] [place] [address] Urobilinogen,Ur Normal Normal NORM [facility] Comment on above: Performed By: #### U A ####[facility] [place] [address] BMPon 11-24-2017 Anion gap 6 mmol/L Normal 5-16 [facility] Comment on above: Performed By: #### L 500.75605, L500.75985, L500.98312 ####[facility] [id number] [place], [place] [address]Vk# [phone] BUN/Creatinine Ratio 20 mg/mg Normal 15-24 [facility] Comment on above: Performed By: #### L 500.17214, L500.17351, L500.02875 ####[facility] [id number] [place], [place] [address]Cf# [phone] Calcium 9.1 mg/dL Normal 8.5-10.1 [facility] Comment on above: Performed By: #### L 500.63532, L500.72729, L500.11427 ####[facility] [id number] [place], [place] [address]Ds# [phone] Chloride 104 mmol/L Normal 98-107 [facility] Comment on above: Performed By: #### L 500.08213, L500.54240, L500.22217 ####[facility] [id number] [place], [place] [address]Cn# [phone] CO2 29 mmol/L Normal 21-32 [facility] Comment on above: Performed By: #### L 500.19652, L500.96046, L500.11800 ####[facility] [id number] [place], [place] [address]Ef# [phone] Creatinine 0.612 mg/dL Low 0.670-1.170 [facility] Comment on above: Result Comment: Lelia ents receiving either N-Acetylcysteine (NAC) orMetamizole prior to venipuncture, may have falsely depressedresults. Performed By: #### L 500.54991, L500.70358, L500.22250 ####[facility] [id number] [place], [place] [address]Gy# [phone] Glucose mass conc 148 mg/dL High 70-100 [facility] Comment on above: Result Comment: 70-1 00- Normal Fasting; 100-125 Impaired Fasting; greaterthan 126 on more than one result- Diabetes. ADA guidelines.Results may be falsely elevated after the administration ofSulfapyridine.Results may be falsely depressed after the administration ofSulfasalazine. Performed By: #### L 500.74301, L500.01624, L500.13273 ####[facility] [id number] [place], [place] [address]Ne# [phone] Potassium molar conc 4.1 mmol/L Normal 3.5-5.1 [facility] Comment on above: Performed By: #### L 500.55580, L500.08537, L500.02998 ####[facility] [id number] [place], [place] [address]Zn# [phone] Sodium 139 mmol/L Normal 136-145 [facility] Comment on above: Performed By: #### L 500.13722, L500.08183, L500.39222 ####[facility] [id number] [place], [place] [address]Mg# [phone] Urea nitrogen 12 mg/dL Normal 7-26 [facility] Comment on above: Performed By: #### L 500.99963, L500.94475, L500.41017 ####[facility] [id number] [place], [place] [address]Aa# [phone] GFR ESTon 11-24-2017 IF AMER Greater than [address] [facility] Comment on above: Performed By: #### L 500.59186, L500.52433, L500.28929 ####[facility] [id number] [place], [place] [address]Fo# [phone] IF non-AFR AMER Greater than 60 Normal [facility] Comment on above: Performed By: #### L 500.68119, L500.95751, L500.78147 ####[facility] [id number] [place], [place] [address]Te# [phone] HGB A1C GLYCOHBon 11-24-2017 Hemoglobin A1c/Hemoglobin.total mass fraction (Bld) 6.0 % Normal 4.3-6.0 [facility] Comment on above: Performed By: #### L 550.74145 ####[facility] [id number] [place], [place] [address]Ba# [phone] LIPIDon 11-24-2017 Cholesterol 179 mg/dL Normal 0-199 [facility] Comment on above: Performed By: #### L 500.05838, L500.48079, L500.19667 ####[facility] [id number] [place], [place] [address]Dw# [phone] HDL Cholesterol 41 mg/dL Normal GREATER [place] 40 [facility] Comment on above: Result Comment: Lelia ents receiving Metamizole prior to venipuncture, mayhave falsely depressed results. Performed By: #### L 500.15700, L500.86987, L500.29466 ####[facility] [id number] [place], [place] [address]My# [phone] LDL Cholesterol 105 MG/DL Normal 0-129 [facility] Comment on above: Result Comment: ___C HOLESTEROL/HDL RATIO RISK___ CHD RISK = Total CHOL LDL HDL (CHOL/HDL) Recommended <200 <130 >35 <3.4 ----Borderline 200-239 130-159 3.4-4.99 --------High >240 >160 >5.0 ---- Performed By: #### L 500.41499, L500.32836, L500.37119 ####[facility] [id number] [place], [place] [address]Kz# [phone] Triglyceride 165 mg/dL High 30-149 [facility] Comment on above: Result Comment: Lelia ents receiving either N-Acetylcysteine (NAC) orMetamizole prior to venipuncture, may have falsely depressedresults. Performed By: #### L 500.04936, L500.69567, L500.90849 ####[facility] [id number] [place], [place] [address]Ob# [phone] Cat 10-03-2017 CNPN Telephone (HEMAWS) LANI ZARAGOZA ([id number]) 1955 MDate Time Provider Department10/03/17 MACHO JUAREZ During your visit today, we recorded the following information about you:Dorinda Joceline MARC 10/03/2017 5:11 PM SignedPatient contacted office and needs to cancel his appointment on 10/04/2017, d/tbeing out of town for work and also missing lab appointment last week. Patientwould like to have labs drawn 11/04/2017 and be seen 11/11/2017. You are onvacation that week. Patient is asking if he could see Jacey 11/11/2017. Pleaseadvise. He is unable to come any other time d/t working in [place].Dorinda Joceline Juarez MD 10/04/2017 8:28 AM SignedYES. Get his labs before visit. If his M protein is unchanged, then he couldsee JACEY.Jorge Lowry PSR 10/04/2017 1:09 PM SignedMessage left for patient to contact office.Patient is rescheduled.Please document and close once message is relayed.Joyce Kaufman RN 10/04/2017 2:42 PM SignedPatient returned call and given provider's message below with verbalizedunderstandin g.Allergies As of Date: 10/03/2017 Noted Allergy ReactionAMPICILLIN 03/16/2017 4 - HivesPENICILLINS 03/16/2017 16 - UnknownDate Reviewed: 04/05/2017Reviewed by: Wanda (Rn) ZEN Greenberg - Fully AssessedReason for Visit: Patient Question [[id number]]Prescriptions as of 10/03/2017 Sig: ASPIRIN 81 MG TABLET,DELAYED * Take 81 mg by mouth once josiah* ACETAMINOPHEN 500 MG TABLET Take 1,000 mg by mouth every * PYRIDOXINE (VITAMIN B6) 100 M* Take 1 tablet by mouth once d* AMLODIPINE 5 MG TABLET 1 tablet once daily. GABAPENTIN 300 MG CAPSULE 1 capsule three times daily. GLIMEPIRIDE 4 MG TABLET 1 tablet once daily. LOSARTAN 100 MG TABLET 1 tablet once daily. MELOXICAM 15 MG TABLET 1 tablet once daily. METFORMIN 1,000 MG TABLET 1 tablet twice daily. METOPROLOL TARTRATE 50 MG TAB* 1 tablet twice daily. PIOGLITAZONE 45 MG TABLET 1 tablet once daily.Problem List As Of Date 10/03/2017 Noted Resolved Polyneuropathy in other diseases classified els*INVALID FOR* MGUS (monoclonal gammopathy of unknown signific*INVALID FOR* Anemia [D64.9] INVALID FOR* Type 2 diabetes mellitus with diabetic polyneur*INVALID FOR* Obesity, Class III, BMI >= 40 (morbid obesity) *INVALID FOR* Status:Closed by Joyce KAUFMAN RN on 10/04/17 [facility] CNOVSPon 04-05-2017 CNOVSP Visit (SP) Office (HEMDAVIDSON) LANI ZARAGOZA ([id number]) 1955 [facility] Time Provider Vuoazewjdb98/17/17 4:00 PM MACHO JUAREZ During your visit today, we recorded the following information about you: Temperature Pulse Blood pressure Weight 98.9 degrees 74/minute 136/63 181.7 kgLapmdean Juarez MD 04/06/2017 7:56 AM SignedPATIENT NAME: Lani Zaragoza.CLINIC NO: [id number].ATTENDING PHYSICIAN: Macho Juarez MD.DATE OF SERVICE:04/05/2017.?DI AGNOSIS: Monoclonal gammopathy of unknown significant; history ofpolyneuropathy.??HPI : This is a 61-year-old morbidly obese gentleman with type 2 diabetesmellitus for 10 years not on insulin, who presented with a year history ofprogressive polyneuropathy for starting in his hands and now in both feet.Patient has not tolerate gabapentin for treatment of his numbness. He hasfallen recently and has significant pain in his left knee. He also hassignificant ecchymosis of the left knee along with small area of spontaneousbruising on his arms. 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 No significant alcohol use or viral hepatitis.?Patient also has arthritis of his spine. He had evaluation MRI scan of thecervical spine several years ago. Left arm pain which subsequently improvedfrom spinal stenosis and arthritis. Patient now complaining of worseningneuropathy of his lower extremities. This symptom is probably related Type 2diabetics with diabetic neuropathy.Patient blood sugar ANDamp; hemoglobin A1c suggests that he is not adequatelymanaged. Patient has no history of fever, chills or sweats. He has no bone painexcept for arthritic pain. He has no sign of increased bleeding, but bruiseseasily. Despite his mild anemia, patient is asymptomatic. He denies fatigue,palpitations, dizziness, or lightheadedness. He does have dyspnea on exertionbut denied chest pain. No history of orthopnea or paroxysmal nocturnal dyspnea.He has a long history of lower extremity edema, and multiple venous dopplerstudies show no evidence of DVT. Patient has no visual changes, orhyperviscosity symptom. No change in bowel habits, rectal bleeding or melena.Interim history: Patient is feeling much better with his left knee pain hasimproved. Patient has no fever, chills or sweating. Persistent neuropathy lowerextremity possibly related to diabetes and degenerative disc disease.All medications ANDamp; allergies updated and reviewed by me.REVIEW OF SYSTEMS:?CONSTITUTIONA L: No fevers, chills, nightsweats, unintended weight lossHEENT: Denies frequent or severe heaches, nasal congestion/sinus symptoms,problematic allergy problems.EYES: No diplopia or blurry vision.CARDIOVASCULAR: No chest pain, dyspnea, palpitations, orthopnea, PND, + ankleedema.PULM: No dyspnea, unexplained cough.GI: No dysphagia/odynophagia, problematic reflux, constipation, diarrhea,changes in stool habits, hematochezia, melena.: No new urinary complaints, including dysuria, gross hematuria or pyuria.NEURO: No new balance problems, peripheral weakness/paresthesias, + numbnessof concern both hands and feetMUSC-SKEL: No new joint pain, swelling, or erythema.PSY: No concerns regarding depression, anxiety or panic.INTEGUMENTARY: No new skin changes (rash, new or changing mole, new growth)??PHYSICAL EXAMINATION: 61-year-old morbidly obese gentleman in no acute distressBP 136/63 Pulse 74 Temp (Src) 98.9 (Oral) Wt 400 lb 8 oz (181.7kg)HEENT: Head is normocephalic, atraumatic. Sclerae white, conjunctivae pink.PEERL. EOMs are intact. Oropharynx is benign.LYMPHATICS: There is no palpable adenopathy in the neck, supraclavicularregion, axillae, or groin.LUNGS: Lungs are clear to percussion and auscultation.HEART: Heart is normal without murmurs, + S4 gallops, or rubs.ABDOMEN: Soft and nontender without organomegaly. No masses can be palpated.Umbilical hernia with ecchymosis.EXTREMITIES : Are without edema. Large ecchymosis area of the left knee alongwith smaller area in the armsNEUROLOGIC: Peripheral neuropathy more pronounced in the lower extremity withdecreased vibratory sensation on both feet. Cranial nerve II-12 intact nomuscle weakness. Gait and balance due to joint pain of the left knee. No tremoror rigidity noted.??LABORATORY DATA:?Component Latest Ref Rng ANDamp; Units 03/16/2017WBC, [place] 3.70 - 11.00 k/uL 8.77RBC, [place] 4.20 - 6.00 m/uL 4.79Hemoglobin, [place] 13.0 - 17.0 g/dL 13.2Hematocrit, [place] 39.0 - 51.0 % 39.9MCV, [place] 80.0 - 100.0 fL 83.3MCH, [place] 26.0 - 34.0 pg 27.6MCHC, [place] 30.5 - 36.0 g/dL 33.1RDW, [place] 11.5 - 15.0 % 14.7Platelet Cnt, [place] 150 - 400 k/uL 195MPV, [place] 9.0 - 12.7 fL 9.4Absol Gran Count 1.45 - 7.50 k/uL 5.10Iron 41 - 186 ug/dL 77TIBC 232 - 386 ug/dL 329Transferrin Saturation 15 - 57 % 23Retic % 0.4 - 2.0 % 2.4 (H)Abs Retic 0.0180 - 0.1000 M/uL 0.115 (H)Ferritin 30.3 - 565.7 ng/mL 84.0MMA 79 - 376 nmol/L 206Vitamin B6, Plasma 20.0 - 125.0 nmol/L 12.2 (L)Component Latest Ref Rng ANDamp; Units 03/16/2017Kappa Free, Serum 3.30 - 19.40 mg/L 21.0 (H)Lambda Free, Serum 5.7 - 26.3 mg/L 10.7K/L Ratio, Serum 0.26 - 1.65 1.96 (H)APTT 23.0 - 32.4 sec 25.6Skeletal Survey: Limited study. ?No focal lytic lesions, no pathologic fracture.MRI knee; no bone lytic lesions or pathologic processASSESSMENT: 61-year-old gentleman with morbid obesity, type 2 diabetes andpolyneuropathy secondary to diabetes. Patient has a monoclonal gammopathy ofunknown significant. There is no clinical evidence of plasma cell dyscrasia,multiple myeloma or amyloidosis at this time. Mild anemia of chronic diseaseANDamp; vitamin B6 deficiency.?PLAN:-Repe at CBC, SPEP ANDamp; Immunofixation OV in 6 months-Start Vitamin b6 100mg once daily.-Repeat Skeletal survey if indicated.Macho Juarez [facility]: Dr. Jing BeachReferring Provider: MACHO JUAREZ [[id number]]Allergies As of Date: 04/05/2017 Noted Allergy ReactionAMPICILLIN 03/16/2017 4 - HivesPENICILLINS 03/16/2017 16 - UnknownDate Reviewed: 04/05/2017Reviewed by: Wanda (Rn) ZEN Greenberg - Fully AssessedReason for Visit: Established Patient [175]Primary Visit Diagnosis:MGUS (monoclonal gammopathy of unknown significance) [D47.2] Other Visit Diagnoses:Polyneuropat hy in other diseases classified elsewhere ([facility]) [G63] Anemia, unspecified type [D64.9] Type 2 diabetes mellitus with diabetic polyneuropathy, without long-term current use of insulin ([facility]) [E11.42]Level of Service: EST PATIENT VISIT LEVEL 3 [34300]Disposition: Return in about 6 months (around 10/04/2017).Follow-up and Disposition History RecordedPrescriptions as of 04/05/2017 Sig: ASPIRIN 81 MG TABLET,DELAYED * Take 81 mg by mouth once josiah* ACETAMINOPHEN 500 MG TABLET Take 1,000 mg by mouth every * PYRIDOXINE (VITAMIN B6) 100 M* Take 1 tablet by mouth once d* AMLODIPINE 5 MG TABLET 1 tablet once daily. GABAPENTIN 300 MG CAPSULE 1 capsule three times daily. GLIMEPIRIDE 4 MG TABLET 1 tablet once daily. LOSARTAN 100 MG TABLET 1 tablet once daily. MELOXICAM 15 MG TABLET 1 tablet once daily. METFORMIN 1,000 MG TABLET 1 tablet twice daily. METOPROLOL TARTRATE 50 MG TAB* 1 tablet twice daily. PIOGLITAZONE 45 MG TABLET 1 tablet once daily.Problem List As Of Date 04/05/2017 Noted Resolved Polyneuropathy in other diseases classified els*INVALID FOR* MGUS (monoclonal gammopathy of unknown signific*INVALID FOR* Anemia [D64.9] INVALID FOR* Type 2 diabetes mellitus with diabetic polyneur*INVALID FOR* Obesity, Class III, BMI >= 40 (morbid obesity) *INVALID FOR*Encounter Status:Closed by MACHO JUAREZ MD on 04/06/17 Normal [facility] PROGRESSon 04-05-2017 PROGRESS HNO ID: [id number]: Macho Mejia: (none)Author Type: PhysicianType: Progress NotesFiled: 04/06/2017 7:56 AMNote Text:PATIENT NAME: Lani Zaragoza.CLINIC NO: [id number].ATTENDING PHYSICIAN: Macho Juarez MD.DATE OF SERVICE:04/05/2017.?DI AGNOSIS: Monoclonal gammopathy of unknown significant; history ofpolyneuropathy.??HPI : This is a 61-year-old morbidly obese gentleman with type 2 diabetesmellitus for 10 years not on insulin, who presented with a year history ofprogressive polyneuropathy for starting in his hands and now in both feet.Patient has not tolerate gabapentin for treatment of his numbness. He hasfallen recently and has significant pain in his left knee. He also hassignificant ecchymosis of the left knee along with small area ofspontaneous bruising on his arms. 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 No significant alcohol use orviral hepatitis.?Patient also has arthritis of his spine. He had evaluation MRI scan of thecervical spine several years ago. Left arm pain which subsequentlyimproved from spinal stenosis and arthritis. Patient now complaining ofworsening neuropathy of his lower extremities. This symptom is probablyrelated Type 2 diabetics with diabetic neuropathy.Patient blood sugar AND hemoglobin A1c suggests that he is not adequatelymanaged. Patient has no history of fever, chills or sweats. He has no bonepain except for arthritic pain. He has no sign of increased bleeding, butbruises easily. Despite his mild anemia, patient is asymptomatic. Hedenies fatigue, palpitations, dizziness, or lightheadedness. He does havedyspnea on exertion but denied chest pain. No history of orthopnea orparoxysmal nocturnal dyspnea. He has a long history of lower extremityedema, and multiple venous doppler studies show no evidence of DVT.Patient has no visual changes, or hyperviscosity symptom. No change inbowel habits, rectal bleeding or melena.Interim history: Patient is feeling much better with his left knee painhas improved. Patient has no fever, chills or sweating. Persistentneuropathy lower extremity possibly related to diabetes and degenerativedisc disease.All medications AND allergies updated and reviewed by me.REVIEW OF SYSTEMS:?CONSTITUTIONA L: No fevers, chills, nightsweats, unintended weight lossHEENT: Denies frequent or severe heaches, nasal congestion/sinussympto ms, problematic allergy problems.EYES: No diplopia or blurry vision.CARDIOVASCULAR: No chest pain, dyspnea, palpitations, orthopnea, PND, +ankle edema.PULM: No dyspnea, unexplained cough.GI: No dysphagia/odynophagia, problematic reflux, constipation, diarrhea,changes in stool habits, hematochezia, melena.: No new urinary complaints, including dysuria, gross hematuria orpyuria.NEURO: No new balance problems, peripheral weakness/paresthesias, +numbness of concern both hands and feetMUSC-SKEL: No new joint pain, swelling, or erythema.PSY: No concerns regarding depression, anxiety or panic.INTEGUMENTARY: No new skin changes (rash, new or changing mole, newgrowth)??PHYSICAL EXAMINATION: 61-year-old morbidly obese gentleman in no acutedistressBP 136/63 Pulse 74 Temp (Src) 98.9 (Oral) Wt 400 lb 8 oz (181.7kg)HEENT: Head is normocephalic, atraumatic. Sclerae white, conjunctivaepink. PEERL. EOMs are intact. Oropharynx is benign.LYMPHATICS: There is no palpable adenopathy in the neck, supraclavicularregion, axillae, or groin.LUNGS: Lungs are clear to percussion and auscultation.HEART: Heart is normal without murmurs, + S4 gallops, or rubs.ABDOMEN: Soft and nontender without organomegaly. No masses can bepalpated. Umbilical hernia with ecchymosis.EXTREMITIES : Are without edema. Large ecchymosis area of the left kneealong with smaller area in the armsNEUROLOGIC: Peripheral neuropathy more pronounced in the lower extremitywith decreased vibratory sensation on both feet. Cranial nerve II-12intact no muscle weakness. Gait and balance due to joint pain of the leftknee. No tremor or rigidity noted.??LABORATORY DATA:?Component Latest Ref Rng AND Units 03/16/2017WBC, [place] 3.70 - 11.00 k/uL 8.77RBC, [place] 4.20 - 6.00 m/uL 4.79Hemoglobin, [place] 13.0 - 17.0 g/dL 13.2Hematocrit, [place] 39.0 - 51.0 % 39.9MCV, [place] 80.0 - 100.0 fL 83.3MCH, [place] 26.0 - 34.0 pg 27.6MCHC, [place] 30.5 - 36.0 g/dL 33.1RDW, [place] 11.5 - 15.0 % 14.7Platelet Cnt, Shiva 150 - 400 k/uL 195MPV, [place] 9.0 - 12.7 fL 9.4Absol Gran Count 1.45 - 7.50 k/uL 5.10Iron 41 - 186 ug/dL 77TIBC 232 - 386 ug/dL 329Transferrin Saturation 15 - 57 % 23Retic % 0.4 - 2.0 % 2.4 (H)Abs Retic 0.0180 - 0.1000 M/uL 0.115 (H)Ferritin 30.3 - 565.7 ng/mL 84.0MMA 79 - 376 nmol/L 206Vitamin B6, Plasma 20.0 - 125.0 nmol/L 12.2 (L)Component Latest Ref Rng AND Units 03/16/2017Kappa Free, Serum 3.30 - 19.40 mg/L 21.0 (H)Lambda Free, Serum 5.7 - 26.3 mg/L 10.7K/L Ratio, Serum 0.26 - 1.65 1.96 (H)APTT 23.0 - 32.4 sec 25.6Skeletal Survey: Limited study. ?No focal lytic lesions, no pathologic fracture.MRI knee; no bone lytic lesions or pathologic processASSESSMENT: 61-year-old gentleman with morbid obesity, type 2 diabetes andpolyneuropathy secondary to diabetes. Patient has a monoclonal gammopathyof unknown significant. There is no clinical evidence of plasma celldyscrasia, multiple myeloma or amyloidosis at this time. Mild anemia ofchronic disease AND vitamin B6 deficiency.?PLAN:-Repe at CBC, SPEP AND Immunofixation OV in 6 months-Start Vitamin b6 100mg once daily.-Repeat Skeletal survey if indicated.Macho Juarez, [facility]: Dr. Jing Beach Normal [facility] PROGRESSon 03-17-2017 PROGRESS HNO ID: [id number]: Lamar Sage (Rt) Rand Moran: (none)Author Type: TechnicianType: Progress NotesFiled: 03/17/2017 3:04 PMNote Text: Radiology Service Progress NotePATIENT NAME: Lani ZaragozaMRN: [id number] OF SERVICE: March 17, 2017TIME: 1:58 PMPATIENT IDENTITY VERIFICATION COMPLETED USING TWO (2) METHODS: Patientconfirmed name verbally and Date of .PATIENT GENDER DATA: MalePATIENT RELEVANT IMPLANT DATA REVIEWED: Not ApplicableRADIOLOGY DEPARTMENT: General X-ray: Exam(s) Completed: Bone SurveyPERIPHERAL IV DATA: Not applicableSIGNED BY: REJI Parryept2016 1:58 PM Normal [facility] Period and Volumeon 03-17-20 17 Period 24 hr Normal [facility] Comment on above: Performed By: #### R ETIC, PTT, IRON, NTBNP, FERR, KLFRS, MMA ####[facility] [address] Av[place], [place] [phone]#### VITB6 ####[facility] [address] [place], [place] [phone] Volume 1073 mL Normal [facility] Comment on above: Performed By: #### R ETIC, PTT, IRON, NTBNP, FERR, KLFRS, MMA ####[facility] [address], [place] [phone]#### VITB6 ####[facility] [address] [place], [place] [phone] Protein Urine 24 Hron 2016 Protein Urine 0.11 gm/24 Hr Normal <0.16 [facility] [place] [facility] Comment on above: Performed By: #### R ETIC, PTT, IRON, NTBNP, FERR, KLFRS, MMA ####[facility] [address] [place], [place] [phone]#### VITB6 ####[facility] [address] [place], [place] [phone] XR BONE SURVEY ROUTINEon XR BONE SURVEY ROUTINE * * *Final Report * * *DATE OF EXAM: Mar 17 2017 3:00PM [id number] [id number] - XR BONE SURVEY ROUTINE / REASON: Monoclonal gammopathy * * * * Physician Interpretation * * * * HISTORY: bone survey. Monoclonal gammopathy .TECHNIQUE: XR BONE SURVEY ROUTINE Laterality: NOT APPLICABLE Number of different views (projections): 19 Limited study due to patient's body habitus.COMPARISON: NoneRESULT:No lytic lesion identified in the skull.No pathologic fractures identified in the spine.No lytic lesion within the long bones of the upper and lower extremity.Bilateral ribs are intact.The bony pelvis is intactIMPRESSION: Limited study. No focal lytic lesions, no pathologic fracture.Palaeontologist ist: PSCB Transcribe Date/Time: Mar 20 2017 10:12PDictated by : LIZETH MARTINS MDThis examination was interpreted and the report reviewed and electronically signed by: LIZETH MARTINS MD on Mar 20 2017 10:24PM [id number] Normal [facility] APTTon 03-16-2017 aPTT 25.6 s Normal 23.0-32.4 [facility] Comment on above: Result Comment: Unfr actionated Heparin Therapeutic Ranges:Standard Heparin Nomogram: 53 to 78 seconds (anti-Xa level of 0.3 to 0.7 U/ml)Low Dose/ACS Nomogram: 49 to 67 seconds (anti-Xa level of 0.2 to 0.5 U/ml)Stroke Treatment Nomogram: 49 to 67 seconds (anti-Xa level of 0.2 to 0.5 U/ml)Note: The APTT therapeutic range has been determined for the current lot of laboratory APTT reagent in use throughout the [facility]. Performed By: #### R ETIC, PTT, IRON, NTBNP, FERR, KLFRS, MMA ####[facility] [address] [place], [place] [phone]#### VITB6 ####[facility] [address] [place], [place] [phone] CNOVSPon 03-16-2017 CNOVSP Visit (SP) Office (JIM) LANI ZARAGOZA ([id number]) 1955 MDate Time Provider Department03/16/17 9:10 AM MACHO JUAREZ During your visit today, we recorded the following information about you: Temperature Pulse Blood pressure Weight 98.1 degrees 93/minute 134/74 180.5 kg Height 1.727 Fernandez Browning LPN, LPN 03/16/2017 9:46 AM SignedNew patient, discuss recent lab results.. DX: Monoclonal gammPamela Danni Nam, LPNLkandace Juarez MD 03/17/2017 7:43 AM SignedHematology and Medical OncologyPATIENT NAME: Lani Zaragoza.CLINIC NO: [id number].ATTENDING PHYSICIAN: Macho Juarez MD.DATE OF SERVICE:03/16/2017.DIAG NOSIS: Monoclonal gammopathy of unknown significant; history ofpolyneuropathy.Consu ltation requested by Dr. Dawkins for an opinion regarding monoclonalgammopathy of unknown significance. My final recommendations will becommunicated back to the requesting physician by way of shared Medical recordor letter to requesting physician via US mail.PERFORMANCE STATUS:80%HPI: This is a 61-year-old morbidly obese gentleman with type 2 diabetesmellitus for 10 years not on insulin, who presented with a year history ofprogressive polyneuropathy for starting in his hands and now in both feet.Patient has not tolerate gabapentin for treatment of his numbness. He hasfallen recently and has significant pain in his left knee. He also hassignificant ecchymosis of the left knee along with small area of spontaneousbruising on his arms. 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 No significant alcohol use or viral hepatitis.Patient also has arthritis of his spine. He had evaluation MRI scan of thecervical spine several years ago. Left arm pain which subsequently improvedfrom spinal stenosis and arthritis. Patient now complaining of worseningneuropathy of his lower extremities. This symptom is probably related Type 2diabetics with diabetic neuropathy.Patient blood sugar ANDamp; hemoglobin A1c suggests that he is not adequatelymanaged. Patient has no history of fever, chills or sweats. He has no bone painexcept for arthritic pain. He has no sign of increased bleeding, but bruiseseasily. Despite his mild anemia, patient is asymptomatic. He denies fatigue,palpitations, dizziness, or lightheadedness. He does have dyspnea on exertionbut denied chest pain. No history of orthopnea or paroxysmal nocturnal dyspnea.He has a long history of lower extremity edema, and multiple venous dopplerstudies show no evidence of DVT. Patient has no visual changes, orhyperviscosity symptom. No change in bowel habits, rectal bleeding or melena.MEDICATIONS:Cur rent Outpatient Prescriptions:amLODIPi ne (NORVASC) 5 mg tablet 1 tablet once daily.gabapentin (NEURONTIN) 300 mg capsule 1 capsule three times daily.glimepiride (AMARYL) 4 mg tablet 1 tablet once daily.losartan (COZAAR) 100 mg tablet 1 tablet once daily.meloxicam (MOBIC) 15 mg tablet 1 tablet once daily.metFORMIN (GLUCOPHAGE) 1,000 mg tablet 1 tablet twice daily.metoprolol tartrate, short acting, (LOPRESSOR) 50 mg tablet 1 tablet twicedaily.pioglitazon e (ACTOS) 45 mg tablet 1 tablet once daily.No current facility-administered medications for this visit. .ALLERGIES:ALLERGIESAl lergen Reactions- Ampicillin Hives- Penicillins Unknown.PAST MEDICAL HISTORY:No past medical history on file..PAST SURGICAL HISTORY:No past surgical history on file..FAMILY HISTORY:FAMILY HISTORYProblem Relation Age of Onset- thyroid issue [OTHER] Mother- Colon Cancer Father- Heart Maternal Grandmother- Diabetes Maternal Grandmother- Heart Maternal Grandfather- Diabetes Maternal Grandfather- Heart Paternal Grandmother- Prostate Cancer Paternal Uncle- lung cancer [OTHER] Paternal Uncle- Diabetes Maternal Aunt.SOCIAL HISTORY:Social History Marital status: Unknown Spouse name: Years of education: Number of children:Social History Main Topics Smoking status: Former Smoker Packs/day: 0.00 Years: 3.00 Types: Cigarettes Smokeless status: Never Used Comment: smoked in teen years Alcohol use: No Drug use: No.REVIEW OF SYSTEMS:CONSTITUTIONAL : No fevers, chills, nightsweats, unintended weight lossHEENT: Denies frequent or severe heaches, nasal congestion/sinus symptoms,problematic allergy problems.EYES: No diplopia or blurry vision.CARDIOVASCULAR: No chest pain, dyspnea, palpitations, orthopnea, PND, + ankleedema.PULM: No dyspnea, unexplained cough.GI: No dysphagia/odynophagia, problematic reflux, constipation, diarrhea,changes in stool habits, hematochezia, melena.: No new urinary complaints, including dysuria, gross hematuria or pyuria.NEURO: No new balance problems, peripheral weakness/paresthesias, + numbnessof concern both hands and feetMUSC-SKEL: No new joint pain, swelling, or erythema.PSY: No concerns regarding depression, anxiety or panic.INTEGUMENTARY: No new skin changes (rash, new or changing mole, new growth)PHYSICAL EXAMINATION: 61-year-old morbidly obese gentleman in no acute distressBP 134/74 Pulse 93 Temp 98.1 Ht 5' 8ANDquot;[verified by Wanda Greenberg RN[(1.73m) Wt 398 lb (180.5kg) BMI 60.53 kg/(m2).HEENT: Head is normocephalic, atraumatic. Sclerae white, conjunctivae pink.PEERL. EOMs are intact. Oropharynx is benign.LYMPHATICS: There is no palpable adenopathy in the neck, supraclavicularregion, axillae, or groin.LUNGS: Lungs are clear to percussion and auscultation.HEART: Heart is normal without murmurs, + S4 gallops, or rubs.ABDOMEN: Soft and nontender without organomegaly. No masses can be palpated.Umbilical hernia with ecchymosis.EXTREMITIES : Are without edema. Large ecchymosis area of the left knee alongwith smaller area in the armsNEUROLOGIC: Peripheral neuropathy more pronounced in the lower extremity withdecreased vibratory sensation on both feet. Cranial nerve II-12 intact nomuscle weakness. Gait and balance due to joint pain of the left knee. No tremoror rigidity noted.LABORATORY DATA:Component Latest Ref Rng ANDamp; Units 03/16/2017WBC, [place] 3.70 - 11.00 k/uL 8.77RBC, [place] 4.20 - 6.00 m/uL 4.79Hemoglobin, [place] 13.0 - 17.0 g/dL 13.2Hematocrit, [place]iva 39.0 - 51.0 % 39.9MCV, [place] 80.0 - 100.0 fL 83.3MCH, [place] 26.0 - 34.0 pg 27.6MCHC, [place] 30.5 - 36.0 g/dL 33.1RDW, [place] 11.5 - 15.0 % 14.7Platelet Cnt, [place] 150 - 400 k/uL 195MPV, [place] 9.0 - 12.7 fL 9.4Absol Gran Count 1.45 - 7.50 k/uL 5.10Component Latest Ref Rng ANDamp; Units 03/16/2017Iron 41 - 186 ug/dL 77TIBC 232 - 386 ug/dL 329Transferrin Saturation 15 - 57 % 23Retic % 0.4 - 2.0 % 2.4 (H)Abs Retic 0.0180 - 0.1000 M/uL 0.115 (H)Ferritin 30.3 - 565.7 ng/mL 84.0APTT 23.0 - 32.4 sec 25.6NT Pro BNP ANDlt;125 pg/mL ANDlt;50Vitamin B12, and folic acid were normal.Peripheral blood smear: Normocytic / normochromic RBCs, platelets adequate,normal differential with a slight left shift and monocytosis. No immature WBCsASSESSMENT: 61-year-old gentleman with morbid obesity, type 2 diabetes andpolyneuropathy secondary to diabetes. Patient has a monoclonal gammopathy ofunknown significant. There is no clinical indication of plasma cell dyscrasia,multiple myeloma or amyloidosis at this time. Mild anemia of chronic disease.PLAN:-Further evaluation anemia including: Reticulocyte count, iron study, andvitamin B6.-Complete workup for multiple myeloma and amyloidosis: 24-hour urine protein,serum and urine [place]/Lambda light chains. PTT (factor X) because of increasedbruising. Skeletal survey and office visit in 2 weeks.-Also check BNP because of pedal edema and possible congestive diastolic heartfailure secondary to amyloidosis.-Patient will return in 2 weeks to discuss indication for a fat pad biopsy orbone marrow biopsy is indicated..I spent 60 minutes in the visit, with more than 50% of the total vhxq-wp-qprjbyvo of the visit in counseling / coordination of care.Macho Juarez MD.ELECTRONICALLY SIGNEDCc: Dr. Dillan Heller Provider: JING DAWKINS [[id number]]Allergies As of Date: 03/16/2017 Noted Allergy ReactionAMPICILLIN 03/16/2017 4 - HivesPENICILLINS 03/16/2017 16 - UnknownDate Reviewed: Never ReviewedReason for Visit: New Patient [172]Primary Visit Diagnosis:MGUS (monoclonal gammopathy of unknown significance) [D47.2] Other Visit Diagnoses:Polyneuropat hy in other diseases classified elsewhere (HCC) [G63] Anemia, unspecified type [D64.9] Easy bruising [R23.8] Type 2 diabetes mellitus with diabetic polyneuropathy, without long-term current use of insulin ([facility]) [E11.42] Obesity, Class III, BMI 40-49.9 (morbid obesity) ([facility]) [E66.01]Order(s):XR BONE SURVEY ROUTINE [5731425] Order #: [id number] FUTURE FERRITIN BLD [SQFERR] Order #: [id number] FUTURE METHYLMALONIC ACID [SQMMA] Order #: [id number] FUTURE RETIC COUNT [SQRETIC] Order #: [id number] FUTURE VITAMIN B6/PYRIDOXIN [SQVITB6] Order #: [id number] FUTURE IRON + TIBC [SQIRON] Order #: [id number] FUTURE PROTEIN 24 HR URINE [SQUTP24] Order #: [id number] FUTURE KAPPA/MAYA,FREE,SER [SQKLFRS] Order #: [id number] FUTURE KAPPA, FREE, URINE [SQUFKAPP] Order #: [id number] FUTURE LAMBDA, FREE, URINE [SQUFLAMB] Order #: [id number] FUTURE ACTIVATED PTT [SQPTT] Order #: [id number] FUTURE NT PRO BNP [SQNTBNP] Order #: [id number] FUTURELevel of Service: NEW PATIENT VISIT LEVEL 5 [[id number]]Disposition: Return in about 2 weeks (around 03/30/2017).Follow-up and Disposition History RecordedPrescriptions as of 03/16/2017 Sig: AMLODIPINE 5 MG TABLET 1 tablet once daily. GABAPENTIN 300 MG CAPSULE 1 capsule three times daily. GLIMEPIRIDE 4 MG TABLET 1 tablet once daily. LOSARTAN 100 MG TABLET 1 tablet once daily. MELOXICAM 15 MG TABLET 1 tablet once daily. METFORMIN 1,000 MG TABLET 1 tablet twice daily. METOPROLOL TARTRATE 50 MG TAB* 1 tablet twice daily. PIOGLITAZONE 45 MG TABLET 1 tablet once daily.Problem List As Of Date 03/16/2017 Noted Resolved Polyneuropathy in other diseases classified els*INVALID FOR* MGUS (monoclonal gammopathy of unknown signific*INVALID FOR* Anemia [D64.9] INVALID FOR* Type 2 diabetes mellitus with diabetic polyneur*INVALID FOR* Obesity, Class III, BMI >= 40 (morbid obesity) *INVALID FOR*Visit Notes:>> Aimee Carpio) MONICO Browning Wed Mar 16, 2017 8:48 AM Status:SignedNew patient, discuss recent lab results.. DX: Monoclonal Rio Razo Nam, LPNEncounter Status:Closed by MACHO JUAREZ MD on 03/17/17 Normal [facility] Ferritinon 03-16-2017 Ferritin 84.0 ng/mL Normal 30.3-565.7 [facility] Comment on above: Performed By: #### R ETIC, PTT, IRON, NTBNP, FERR, KLFRS, MMA ####[facility] AveCE[address] [place] [phone]#### VITB6 ####[facility] [address] [place], [place] [phone] Iron and TIBCon 03-16-2017 Iron 77 ug/dL Normal 41-186 [facility] Comment on above: Performed By: #### R ETIC, PTT, IRON, NTBNP, FERR, KLFRS, MMA ####[facility] [address] AveCE[place] [phone]#### VITB6 ####[facility] [address] [place], [place] [phone] TIBC 329 ug/dL Normal 232-386 [facility] Comment on above: Performed By: #### R ETIC, PTT, IRON, NTBNP, FERR, KLFRS, MMA ####[facility] [address] AveCHavertown, [place] [phone]#### VITB6 ####[facility] [address] [place], [place] [phone] Transferrin Saturatn 23 % Normal 15-57 [facility] Comment on above: Performed By: #### R ETIC, PTT, IRON, NTBNP, FERR, KLFRS, MMA ####[facility] [address] AveCHavertown, [place] [phone]#### VITB6 ####[facility] [address] [place], [place] [phone] [place], Free, Urineon 017 [place], Free, Urine 43.90 mg/L High 1.35-24.19 [facility] Comment on above: Result Comment: (NOT E)Test Performed by [facility] [place],[facility],[address] [place] [address]359Esxipvyphu Beach M.D., Ph.D., Director of [phone], CLIA [id number] [place],Free,Seron 2016 K/L Ratio, Serum 1.96 High 0.26-1.65 [facility] [place] [facility] Comment on above: Performed By: #### R ETIC, PTT, IRON, NTBNP, FERR, KLFRS, MMA ####[address] [phone]#### VITB6 ####[facility] [place], [place] [phone] [place], Free, Serum 21.0 mg/L High 3.30-19.40 [facility] Comment on above: Result Comment: Rare ly, increased serum free light chains values may not be detected due to antigen excess phenomenon. Results should always be correlated with other laboratory results and clinical findings. Performed By: #### R ETIC, PTT, IRON, NTBNP, FERR, KLFRS, MMA ####[place] [phone]#### VITB6 ####[facility] [place], [place] [phone] Lambda, Free, Serum 10.7 mg/L Normal 5.7-26.3 [facility] Comment on above: Result Comment: Rare ly, increased serum free light chains values may not be detected due to antigen excess phenomenon. Results should always be correlated with other laboratory results and clinical findings. Performed By: #### R ETIC, PTT, IRON, NTBNP, FERR, KLFRS, MMA ####[place] [address] [place], [place] [phone]#### VITB6 ####[facility] [address] [phone] Lambda, Free, Urineon 2016 Lambda, Free, Urine 5.96 mg/L Normal 0.24-6.66 [facility] Comment on above: Result Comment: (NOT E)Test Performed by [facility],[address] [place] [phone] Beach M.D., Ph.D., Director of [phone], CLIA [id number] Methylmalonic Acidon 017 Methylmalonic Acid 206 nmol/L Normal 79-376 [facility] Comment on above: Result Comment: This test was developed and its performance characteristics determined by [facility]'s [facility] [place] ([facility]).It has not been cleared or approved by the FDA. -[facility] is regulated under CLIA as qualified to perform high-complexity testing.This test is used for clinical purposes. It should not be regarded as investigational or for research. Performed By: #### R ETIC, PTT, IRON, NTBNP, FERR, KLFRS, MMA ####[address] [phone]#### VITB6 ####[facility] [address] [phone] NT Pro BNPon 03-16-2017 PRO B Natr Peptide <50 Normal <125 [facility] Comment on above: Performed By: #### R ETIC, PTT, IRON, NTBNP, FERR, KLFRS, MMA ####[address] [phone]#### VITB6 ####[facility] [address] [place], [place] [phone] PROGRESSon 03-16-2017 PROGRESS HNO ID: [id number]: Macho Mejia: (none)Author Type: PhysicianType: Progress NotesFiled: 03/17/2017 7:43 AMNote Text:Hematology and Medical OncologyPATIENT NAME: Lani Zaragoza.CLINIC NO: [id number].ATTENDING PHYSICIAN: Macho Juarez MD.DATE OF SERVICE:03/16/2017.DIAG NOSIS: Monoclonal gammopathy of unknown significant; history ofpolyneuropathy.Consu ltation requested by Dr. Dawkins for an opinion regarding monoclonalgammopathy of unknown significance. My final recommendations will becommunicated back to the requesting physician by way of shared Medicalrecord or letter to requesting physician via US mail.PERFORMANCE STATUS:80%HPI: This is a 61-year-old morbidly obese gentleman with type 2 diabetesmellitus for 10 years not on insulin, who presented with a year history ofprogressive polyneuropathy for starting in his hands and now in both feet.Patient has not tolerate gabapentin for treatment of his numbness. He hasfallen recently and has significant pain in his left knee. He also hassignificant ecchymosis of the left knee along with small area ofspontaneous bruising on his arms. 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 No significant alcohol use orviral hepatitis.Patient also has arthritis of his spine. He had evaluation MRI scan of thecervical spine several years ago. Left arm pain which subsequentlyimproved from spinal stenosis and arthritis. Patient now complaining ofworsening neuropathy of his lower extremities. This symptom is probablyrelated Type 2 diabetics with diabetic neuropathy.Patient blood sugar AND hemoglobin A1c suggests that he is not adequatelymanaged. Patient has no history of fever, chills or sweats. He has no bonepain except for arthritic pain. He has no sign of increased bleeding, butbruises easily. Despite his mild anemia, patient is asymptomatic. Hedenies fatigue, palpitations, dizziness, or lightheadedness. He does havedyspnea on exertion but denied chest pain. No history of orthopnea orparoxysmal nocturnal dyspnea. He has a long history of lower extremityedema, and multiple venous doppler studies show no evidence of DVT.Patient has no visual changes, or hyperviscosity symptom. No change inbowel habits, rectal bleeding or melena.MEDICATIONS:Cur rent Outpatient Prescriptions:amLODIPi ne (NORVASC) 5 mg tablet 1 tablet once daily.gabapentin (NEURONTIN) 300 mg capsule 1 capsule three times daily.glimepiride (AMARYL) 4 mg tablet 1 tablet once daily.losartan (COZAAR) 100 mg tablet 1 tablet once daily.meloxicam (MOBIC) 15 mg tablet 1 tablet once daily.metFORMIN (GLUCOPHAGE) 1,000 mg tablet 1 tablet twice daily.metoprolol tartrate, short acting, (LOPRESSOR) 50 mg tablet 1 tablet twicedaily.pioglitazon e (ACTOS) 45 mg tablet 1 tablet once daily.No current facility-administered medications for this visit. .ALLERGIES:ALLERGIESAl lergen Reactions- Ampicillin Hives- Penicillins Unknown.PAST MEDICAL HISTORY:No past medical history on file..PAST SURGICAL HISTORY:No past surgical history on file..FAMILY HISTORY:FAMILY HISTORYProblem Relation Age of Onset- thyroid issue [OTHER] Mother- Colon Cancer Father- Heart Maternal Grandmother- Diabetes Maternal Grandmother- Heart Maternal Grandfather- Diabetes Maternal Grandfather- Heart Paternal Grandmother- Prostate Cancer Paternal Uncle- lung cancer [OTHER] Paternal Uncle- Diabetes Maternal Aunt.SOCIAL HISTORY:Social History Marital status: Unknown Spouse name: Years of education: Number of children:Social History Main Topics Smoking status: Former Smoker Packs/day: 0.00 Years: 3.00 Types: Cigarettes Smokeless status: Never Used Comment: smoked in teen years Alcohol use: No Drug use: No.REVIEW OF SYSTEMS:CONSTITUTIONAL : No fevers, chills, nightsweats, unintended weight lossHEENT: Denies frequent or severe heaches, nasal congestion/sinussympto ms, problematic allergy problems.EYES: No diplopia or blurry vision.CARDIOVASCULAR: No chest pain, dyspnea, palpitations, orthopnea, PND, +ankle edema.PULM: No dyspnea, unexplained cough.GI: No dysphagia/odynophagia, problematic reflux, constipation, diarrhea,changes in stool habits, hematochezia, melena.: No new urinary complaints, including dysuria, gross hematuria orpyuria.NEURO: No new balance problems, peripheral weakness/paresthesias, +numbness of concern both hands and feetMUSC-SKEL: No new joint pain, swelling, or erythema.PSY: No concerns regarding depression, anxiety or panic.INTEGUMENTARY: No new skin changes (rash, new or changing mole, newgrowth)PHYSICAL EXAMINATION: 61-year-old morbidly obese gentleman in no acutedistressBP 134/74 Pulse 93 Temp 98.1 Ht 5' 8"[verified by Wanda Greenberg RN[(1.73m) Wt 398 lb (180.5kg) BMI 60.53 kg/(m2).HEENT: Head is normocephalic, atraumatic. Sclerae white, conjunctivaepink. PEERL. EOMs are intact. Oropharynx is benign.LYMPHATICS: There is no palpable adenopathy in the neck, supraclavicularregion, axillae, or groin.LUNGS: Lungs are clear to percussion and auscultation.HEART: Heart is normal without murmurs, + S4 gallops, or rubs.ABDOMEN: Soft and nontender without organomegaly. No masses can bepalpated. Umbilical hernia with ecchymosis.EXTREMITIES : Are without edema. Large ecchymosis area of the left kneealong with smaller area in the armsNEUROLOGIC: Peripheral neuropathy more pronounced in the lower extremitywith decreased vibratory sensation on both feet. Cranial nerve II-12intact no muscle weakness. Gait and balance due to joint pain of the leftknee. No tremor or rigidity noted.LABORATORY DATA:Component Latest Ref Rng AND Units 03/16/2017WBC, [place] 3.70 - 11.00 k/uL 8.77RBC, [place] 4.20 - 6.00 m/uL 4.79Hemoglobin, [place] 13.0 - 17.0 g/dL 13.2Hematocrit, [place] 39.0 - 51.0 % 39.9MCV, [place] 80.0 - 100.0 fL 83.3MCH, [place] 26.0 - 34.0 pg 27.6MCHC, [place] 30.5 - 36.0 g/dL 33.1RDW, [place] 11.5 - 15.0 % 14.7Platelet Cnt, [place] 150 - 400 k/uL 195MPV, [place] 9.0 - 12.7 fL 9.4Absol Gran Count 1.45 - 7.50 k/uL 5.10Component Latest Ref Rng AND Units 03/16/2017Iron 41 - 186 ug/dL 77TIBC 232 - 386 ug/dL 329Transferrin Saturation 15 - 57 % 23Retic % 0.4 - 2.0 % 2.4 (H)Abs Retic 0.0180 - 0.1000 M/uL 0.115 (H)Ferritin 30.3 - 565.7 ng/mL 84.0APTT 23.0 - 32.4 sec 25.6NT Pro BNP <125 pg/mL <50Vitamin B12, and folic acid were normal.Peripheral blood smear: Normocytic / normochromic RBCs, plateletsadequate, normal differential with a slight left shift and monocytosis. Noimmature WBCsASSESSMENT: 61-year-old gentleman with morbid obesity, type 2 diabetes andpolyneuropathy secondary to diabetes. Patient has a monoclonal gammopathyof unknown significant. There is no clinical indication of plasma celldyscrasia, multiple myeloma or amyloidosis at this time. Mild anemia ofchronic disease.PLAN:-Further evaluation anemia including: Reticulocyte count, iron study, andvitamin B6.-Complete workup for multiple myeloma and amyloidosis: 24-hour urineprotein, serum and urine [place]/Lambda light chains. PTT (factor X) becauseof increased bruising. Skeletal survey and office visit in 2 weeks.-Also check BNP because of pedal edema and possible congestive diastolicheart failure secondary to amyloidosis.-Patient will return in 2 weeks to discuss indication for a fat pad biopsyor bone marrow biopsy is indicated..I spent 60 minutes in the visit, with more than 50% of the [id number] time of the visit in counseling / coordination of care.Macho Juarez MD.ELECTRONICALLY SIGNEDCc: Dr. Dillan Beach Normal [facility] Reticulocyteon 03-16-2017 Abs Retic 0.115 M/uL High 0.0180-0.100 0 [facility] Comment on above: Performed By: #### R ETIC, PTT, IRON, NTBNP, FERR, KLFRS, MMA ####[facility] [address] [place], [place] [phone]#### VITB6 ####[facility] [id number] [place], [place] [phone] Retic% 2.4 % High 0.4-2.0 [facility] Comment on above: Performed By: #### R ETIC, PTT, IRON, NTBNP, FERR, KLFRS, MMA ####[facility] [place], [place] [phone]#### VITB6 ####[facility] [id number] [place], [place] [phone] Vitamin B6 Plasmaon 03-16-20 17 Vitamin B6 Plasma 12.2 nmol/L Low 20.0-125.0 [facility] Comment on above: Result Comment: (NOT E)INTERPRETIVE INFORMATION: Vitamin B6 (Pyridoxal 5-Phosphate)Pyridoxal 5'-phosphate measured in a specimen collected followingan 8-hour or overnight fast accurately indicates vitamin D8irbcirkpzef status. Non-fasting specimen concentration reflectsrecent vitamin intake.Test developed and characteristics determined by [facility]. See Compliance Statement B: [facility]/CSPerformed by [facility],[address] [place] [id number] zyy.[facility], Thompson Delvalle MD, Lab. Director Performed By: #### R ETIC, PTT, IRON, NTBNP, FERR, KLFRS, MMA ####[facility] [place], [place] [phone]#### VITB6 ####[id number] [place], [place] [phone] [facility] Abs Gr + CBCon 03-16 Absol Gran Count 5.10 k/uL Normal 1.45-7.50 [facility] [place] [facility] Erythrocyte distribution width Auto Ratio (RBC) 14.7 % Normal 11.5-15.0 [facility] Erythrocytes (RBC) 4.79 10*6/uL Normal 4.20-6.00 [facility] Hematocrit (HCT) 39.9 % Normal 39.0-51.0 [facility] [place] [facility] Hemoglobin mass conc (Bld) 13.2 g/dL Normal 13.0-17.0 [facility] MCH 27.6 pg Normal 26.0-34.0 [facility] MCHC mass conc (RBC) 33.1 g/dL Normal 30.5-36.0 [facility] MCV 83.3 fL Normal 80.0-100.0 [facility] Platelet mean volume (PMV) 9.4 fL Normal 9.0-12.7 [facility] Comment on above: Result Comment: Test performed at: [facility], [address] [facility] , [place] [address]. WBC (Leukocytes) 8.77 10*3/uL Normal 3.70-11.00 [facility] Platelet Cnt 195 k/uL Normal 150-400 [facility] Vital Signs Date Time Vital Sign Value Performing Clinician Faci lity 12-11-2024 10:06-0400 Body mass index (BMI) [Ratio] 55.2 kg/m2 Dr. Bernabe Reese MD Work Phone: [facility] 12-11-2024 10:06-0400 Body temperature 97.5 [degF] Dr. Bernabe Reese MD Work Phone: [facility] 12-11-2024 10:06-0400 Diastolic blood pressure 53 mm[Hg] Dr. Bernabe Reese MD Work Phone: [facility] 12-11-2024 10:06-0400 Heart rate 65 /min Dr. Bernabe Reese MD Work Phone: [facility] 12-11-2024 10:06-0400 Respiratory rate 18 /min Dr. Bernabe Reese MD Work Phone: [facility] 12-11-2024 10:06-0400 Systolic blood pressure 95 mm[Hg] Dr. Bernabe Reese MD Work Phone: [facility] 12-04-2024 10:12-0400 Body mass index (BMI) [Ratio] 55.2 kg/m2 Dr. Bernabe Reese MD Work Phone: [facility] 12-04-2024 10:12-0400 Body temperature 96.5 [degF] Dr. Bernabe Reese MD Work Phone: [facility] 12-04-2024 10:12-0400 Diastolic blood pressure 70 mm[Hg] Dr. Bernabe Reese MD Work Phone: [facility] 12-04-2024 10:12-0400 Heart rate 70 /min Dr. Bernabe Reese MD Work Phone: [facility] 12-04-2024 10:12-0400 Respiratory rate 16 /min Dr. Bernabe Reese MD Work Phone: [facility] 12-04-2024 10:12-0400 Systolic blood pressure 141 mm[Hg] Dr. Bernabe Reese MD Work Phone: 0(630)958-518221 [place] [address] 11-18-2024 00:32-0400 Body weight 164.[address] Bernabe Reese MD Work Phone: 8(060)655-533735 [address] 11-13-2024 10:23-0400 Body mass index (BMI) [Ratio] 55.2 kg/m2 Dr. Bernabe Reese MD Work Phone: 0(609)976-761121 [place] [address] 11-13-2024 10:23-0400 Body temperature 96.2 [degF] Dr. Bernabe Reese MD Work Phone: [facility] 11-13-2024 10:23-0400 Diastolic blood pressure 67 mm[Hg] Dr. Bernabe Reese MD Work Phone: [facility] 11-13-2024 10:23-0400 Heart rate 69 /min Dr. Bernabe Reese MD Work Phone: [facility] 11-13-2024 10:23-0400 Respiratory rate 18 /min Dr. Bernabe Reese MD Work Phone: [facility] 11-13-2024 10:23-0400 Systolic blood pressure 127 mm[Hg] Dr. Bernabe Reese MD Work Phone: [facility] 10-30-2024 07:33-0400 Body temperature 98.01 [degF] Kevin Soriano MD Work Phone: 7(946)020-654645 [place] [address] 10-30-2024 07:33-0400 Diastolic blood pressure 71 mm[Hg] Kevin Soriano MD Work Phone: 3(886)369-310245 [place] [address] 10-30-2024 07:33-0400 Heart rate 66 /min Kevin Soriano MD Work Phone: 4(852)721-207145 [place] [address] 10-30-2024 07:33-0400 Respiratory rate 20 /min Kevin Soriano MD Work Phone: 0(331)722-105445 [place] [address] 10-30-2024 07:33-0400 SaO2% (BldA) [Mass fraction] 91 % Kevin Soriano MD Work Phone: 4(717)023-125145 [place] [address] 10-30-2024 07:33-0400 Systolic blood pressure 124 mm[Hg] Kevin Soriano MD Work Phone: 5(076)064-285445 [place] [address] 10-26-2024 09:00-0400 Body mass index (BMI) [Ratio] 54.34 kg/m2 Kevin Soriano MD Work Phone: 4(080)735-754345 [place] [address] 10-26-2024 09:00-0400 Body weight 166.92 kg Kevin Soriano MD Work Phone: 1(799)627-653845 [place] [address] 10-18-2024 00:21-0400 Body weight 164.[address] Bernabe Reese MD Work Phone: [facility] 10-16-2024 23:23-0400 Body height 175.3 cm Kevin Soriano MD Work Phone: 7(725)561-732245 [place] [address] 10-16-2024 18:30-0400 Diastolic blood pressure 85 mm[Hg] Dr. Bernabe Reese MD Work Phone: [facility] 10-16-2024 18:30-0400 Heart rate 85 /min Dr. Bernabe Reese MD Work Phone: [facility] 10-16-2024 18:30-0400 Systolic blood pressure 136 mm[Hg] Dr. Bernabe Reese MD Work Phone: [facility] 10-16-2024 18:00-0400 Inhaled oxygen flow rate 3 L/min Dr. Bernabe Reese MD Work Phone: [facility] 10-16-2024 18:00-0400 Respiratory rate 16 /min Dr. Bernabe Reese MD Work Phone: [facility] 10-16-2024 18:00-0400 SaO2% (BldA) [Mass fraction] 98 % Dr. Bernabe Reese MD Work Phone: [facility] 10-16-2024 17:00-0400 Body mass index (BMI) [Ratio] 52.7 kg/m2 Dr. Bernabe Reese MD Work Phone: [facility] 10-16-2024 15:45-0400 Body temperature 97.2 [degF] Dr. Bernabe Reese MD Work Phone: [facility] 10-15-2024 07:13-0400 Inhaled oxygen concentration 30 % Dr. Bernabe Reese MD Work Phone: [facility] 10-13-2024 14:34-0400 Body height 172.[address] Bernabe Reese MD Work Phone: [facility] 10-13-2024 14:34-0400 Body weight 157.[address] Bernabe Reese MD Work Phone: [facility] 2024 16:00-0400 Diastolic blood pressure 81 mm[Hg] Dr. Bernabe Reese MD Work Phone: [facility] 2024 16:00-0400 Heart rate 93 /min Dr. Bernabe Reese MD Work Phone: [facility] 2024 16:00-0400 Respiratory rate 18 /min Dr. Bernabe Reese MD Work Phone: [facility] 2024 16:00-0400 SaO2% (BldA) [Mass fraction] 98 % Dr. Bernabe Reese MD Work Phone: [facility] 2024 16:00-0400 Systolic blood pressure 149 mm[Hg] Dr. Bernabe Reese MD Work Phone: 2(219)982-349721 [place] [address] 2024 15:17-0400 Body temperature 98.6 [degF] Dr. Bernabe Reese MD Work Phone: 7(113)321-356707 [place] [address] 2024 12:48-0400 Body mass index (BMI) [Ratio] 53.9 kg/m2 Dr. Bernabe Reese MD Work Phone: 7(171)525-736121 [place] [address] 2024 12:48-0400 Body weight [address] Bernabe Reese MD Work Phone: 5(020)009-798321 [place] [address] 2024 12:46-0400 Body height 172.[address] Bernabe Reese MD Work Phone: 2(317)981-900435 [address] 2024 10:32-0400 Body mass index (BMI) [Ratio] 55.2 kg/m2 Dr. Bernabe Reese MD Work Phone: 5(863)004-605021 [place] [address] 2024 10:32-0400 Body temperature 97.6 [degF] Dr. Bernabe Reese MD Work Phone: [facility] 2024 10:32-0400 Diastolic blood pressure 71 mm[Hg] Dr. Bernabe Reese MD Work Phone: 3(056)418-750921 [place] [address] 2024 10:32-0400 Heart rate 80 /min Dr. Bernabe Reese MD Work Phone: [facility] 2024 10:32-0400 Respiratory rate 16 /min Dr. Bernabe Reese MD Work Phone: [facility] 2024 10:32-0400 Systolic blood pressure 160 mm[Hg] Dr. Bernabe Reese MD Work Phone: [facility] 10-02-2024 10:19-0400 Body mass index (BMI) [Ratio] 55.2 kg/m2 Dr. Bernabe Reese MD Work Phone: [facility] 10-02-2024 10:19-0400 Body temperature 96.5 [degF] Dr. Bernabe Reese MD Work Phone: 6(302)199-138621 [place] [address] 10-02-2024 10:19-0400 Diastolic blood pressure 75 mm[Hg] Dr. Bernabe Reese MD Work Phone: 7(260)745-087421 [place] [address] 10-02-2024 10:19-0400 Heart rate 78 /min Dr. Benrabe Reese MD Work Phone: 1(814)019-606921 [place] [address] 10-02-2024 10:19-0400 Respiratory rate 14 /min Dr. Bernabe Reese MD Work Phone: [facility] 10-02-2024 10:19-0400 Systolic blood pressure 168 mm[Hg] Dr. Bernabe Reese MD Work Phone: [facility] 09-25-2024 09:42-0400 Body height 172.[address] Bernabe Reese MD Work Phone: [facility] 09-25-2024 09:42-0400 Body weight 164.[address] Bernabe Reese MD Work Phone: [facility] 07-11-2023 06:19-0500 Body height 172.[address] Bernabe Reese Work Phone: [facility] 07-11-2023 06:19-0500 Body mass index (BMI) [Ratio] 58.5 kg/m2 Dr. Bernabe Reese Work Phone: [facility] 07-11-2023 06:19-0500 Body temperature 97.7 [degF] Dr. Bernabe Reese Work Phone: [facility] 07-11-2023 06:19-0500 Body weight 174.[address] Bernabe Reese Work Phone: [facility] 07-11-2023 06:19-0500 Diastolic blood pressure 77 mm[Hg] Dr. Bernabe Reese Work Phone: [facility] 07-11-2023 06:19-0500 Heart rate 59 /min Dr. Bernabe Reese Work Phone: [facility] 07-11-2023 06:19-0500 Respiratory rate 18 /min Dr. Bernabe Reese Work Phone: [facility] 07-11-2023 06:19-0500 SaO2% (BldA) [Mass fraction] 96 % Dr. Bernabe Reese Work Phone: [facility] 07-11-2023 06:19-0500 Systolic blood pressure 138 mm[Hg] Dr. Bernabe Reese Work Phone: [facility] 05-23-2023 13:14-0500 Body height 172.[address] Bernabe Reese Work Phone: [facility] 05-23-2023 13:14-0500 Body weight 168.[address] Bernabe Reese Work Phone: [facility] 05-23-2023 10:30-0500 SaO2% (BldA) [Mass fraction] 91 % Dr. Bernabe Reese Work Phone: [facility] 05-23-2023 09:00-0500 Body temperature 98.2 [degF] Dr. Bernabe Reese Work Phone: [facility] 05-23-2023 09:00-0500 Diastolic blood pressure 61 mm[Hg] Dr. Bernabe Reese Work Phone: [facility] 05-23-2023 09:00-0500 Heart rate 84 /min Dr. Bernabe Reese Work Phone: [facility] 05-23-2023 09:00-0500 Respiratory rate 18 /min Dr. Bernabe Reese Work Phone: [facility] 05-23-2023 09:00-0500 Systolic blood pressure 131 mm[Hg] Dr. Bernabe Reese Work Phone: [facility] 05-23-2023 05:05-0500 Inhaled oxygen concentration 21 % Dr. Bernabe Reese Work Phone: [facility] 05-21-2023 18:05-0500 Body mass index (BMI) [Ratio] 56.5 kg/m2 Dr. Bernabe Reese Work Phone: [facility] 03-24-2023 10:57-0400 Body height 172.[address] Bernabe Reese Work Phone: [facility] 03-24-2023 10:57-0400 Body mass index (BMI) [Ratio] 58.6 kg/m2 Dr. Bernabe Reese Work Phone: [facility] 03-24-2023 10:57-0400 Body weight 174.[address] Bernabe Reese Work Phone: [facility] 03-24-2023 10:57-0400 Diastolic blood pressure 84 mm[Hg] Dr. Bernabe Reese Work Phone: [facility] 03-24-2023 10:57-0400 Heart rate 84 /min Dr. Bernabe Reese Work Phone: [facility] 03-24-2023 10:57-0400 Respiratory rate 18 /min Dr. Bernabe Reese Work Phone: [facility] 03-24-2023 10:57-0400 Systolic blood pressure 129 mm[Hg] Dr. Bernabe Reese Work Phone: [facility] 12-03-2022 10:42-0400 Body temperature 97.8 [degF] Dr. Bernabe Reese Work Phone: [facility] 12-03-2022 10:42-0400 Diastolic blood pressure 84 mm[Hg] Dr. Bernabe Reese Work Phone: [facility] 12-03-2022 10:42-0400 Heart rate 91 /min Dr. Bernabe Reese Work Phone: [facility] 12-03-2022 10:42-0400 Respiratory rate 18 /min Dr. Bernabe Reese Work Phone: [facility] 12-03-2022 10:42-0400 SaO2% (BldA) [Mass fraction] 94 % Dr. Bernabe Reese Work Phone: [facility] 12-03-2022 10:42-0400 Systolic blood pressure 119 mm[Hg] Dr. Bernabe Reese Work Phone: [facility] 12-03-2022 05:58-0400 Body mass index (BMI) [Ratio] 59.8 kg/m2 Dr. Bernabe Reese Work Phone: [facility] 12-03-2022 05:58-0400 Body weight 178.[address] Bernabe Reese Work Phone: [facility] 11-30-2022 09:36-0400 Inhaled oxygen flow rate 2 L/min Dr. Bernabe Reese Work Phone: [facility] 11-30-2022 06:58-0400 Inhaled oxygen concentration 30 % Dr. Bernabe Reese Work Phone: [facility] 11-29-2022 14:56-0400 Body height 172.[address] Bernabe Reese Work Phone: [facility] 11-28-2022 07:32-0400 Body temperature 97.9 [degF] Dr. Bernabe Reese Work Phone: [facility] 11-28-2022 07:32-0400 Diastolic blood pressure 84 mm[Hg] Dr. Bernabe Reese Work Phone: [facility] 11-28-2022 07:32-0400 Heart rate 81 /min Dr. Bernabe Reese Work Phone: [facility] 11-28-2022 07:32-0400 Respiratory rate 16 /min Dr. Bernabe Reese Work Phone: [facility] 11-28-2022 07:32-0400 SaO2% (BldA) [Mass fraction] 98 % Dr. Bernabe Reese Work Phone: [facility] 11-28-2022 07:32-0400 Systolic blood pressure 138 mm[Hg] Dr. Bernabe Reese Work Phone: [facility] 11-28-2022 04:28-0400 Body mass index (BMI) [Ratio] 60.2 kg/m2 Dr. Bernabe Reese Work Phone: [facility] 11-28-2022 04:28-0400 Body weight 179.[address] Bernabe Reese Work Phone: [facility] 09-27-2022 09:10-0400 Body height 172.[address] Bernabe Reese Work Phone: [facility] 09-27-2022 09:10-0400 Body mass index (BMI) [Ratio] 59.3 kg/m2 Dr. Bernabe Reese Work Phone: [facility] 09-27-2022 09:10-0400 Body weight 176.[address] Bernabe Reese Work Phone: [facility] 09-27-2022 09:10-0400 Diastolic blood pressure 78 mm[Hg] Dr. Bernabe Reese Work Phone: [facility] 09-27-2022 09:10-0400 Heart rate 80 /min Dr. Bernabe Reese Work Phone: [facility] 09-27-2022 09:10-0400 Respiratory rate 18 /min Dr. Bernabe Reese Work Phone: [facility] 09-27-2022 09:10-0400 Systolic blood pressure 130 mm[Hg] Dr. Bernabe Reese Work Phone: [facility] 03-12-2022 09:55-0400 Body height 172.[address] Bernabe Reese Work Phone: [facility] Work Phone: 03-12-2022 09:55-0400 Body mass index (BMI) [Ratio] 60 kg/m2 Dr. Bernabe Reese Work Phone: [facility] Work Phone: 03-12-2022 09:55-0400 Body weight 179.[address] Bernabe Reese Work Phone: [facility] Work Phone: 03-12-2022 09:55-0400 Diastolic blood pressure 84 mm[Hg] Dr. Bernabe Reese Work Phone: [facility] Work Phone: 03-12-2022 09:55-0400 Heart rate 82 /min Dr. Bernabe Reese Work Phone: [facility] Work Phone: 03-12-2022 09:55-0400 Respiratory rate 18 /min Dr. Bernabe Reese Work Phone: [facility] Work Phone: 03-12-2022 09:55-0400 Systolic blood pressure 138 mm[Hg] Dr. Bernabe Reese Work Phone: [facility] Work Phone: 03-09-2022 13:48-0400 Body mass index (BMI) [Ratio] 60.6 kg/m2 Dr. Bernabe Reese Work Phone: [facility] Work Phone: 03-09-2022 13:48-0400 Body temperature 98.3 [degF] Dr. Bernabe Reese Work Phone: [facility] Work Phone: 03-09-2022 13:48-0400 Body weight 180.[address] Bernabe Reese Work Phone: [facility] Work Phone: 03-09-2022 13:48-0400 Diastolic blood pressure 86 mm[Hg] Dr. Bernabe Reese Work Phone: [facility] Work Phone: 03-09-2022 13:48-0400 Heart rate 101 /min Dr. Bernabe Reese Work Phone: [facility] Work Phone: 03-09-2022 13:48-0400 Respiratory rate 16 /min Dr. Bernabe Reese Work Phone: [facility] Work Phone: 03-09-2022 13:48-0400 SaO2% (BldA) [Mass fraction] 94 % Dr. Bernabe Reese Work Phone: [facility] Work Phone: 03-09-2022 13:48-0400 Systolic blood pressure 165 mm[Hg] Dr. Bernabe Reese Work Phone: [facility] Work Phone: Encounters Encounter Date Encounter Type Care Provider Facility Start: 12-11-2024 End: 12-17-2024 ambulatory Bernabe Reese Facility:[facility] Start: 12-11-2024 End: 12-17-2024 Dr. Canelo Cavazos MD -[facility] Work Phone: Start: 12-10-2024 ambulatory Bernabe Reese Facilit y:[facility] Start: 12-10-2024 Dr. Kelli Salgado MD -[facility] Start: 12-04-[address] Ramon vieira DPJoyce -[facility] [place] Work Phone: Start: 11-29-2024 End: 11-29-[address] Bernabe Reese MD Work Phone: [facility] Work Phone: Start: 11-29-2024 End: 11-29-2024 Patient encounter procedure Kelli Salgado MD -[facility] Work Phone: Start: 11-29-2024 End: 11-29-2024 Kelli Salgado MD -[facility] Work Phone: Start: 11-29-2024 End: 11-29-2024 ambulatory Kelli Salgado Facility:[facility] Start: 11-21-2024 ambulatory Bernabe Reese Facilit y:[facility] Start: 11-21-[address] Kelli Salgado MD -[facility] Start: 11-21[facility] Start: 11-14-2024 ambulatory Bernabe Reese Facilit y:[facility] Start: 11-14-[address] Kelli Salgado MD -[facility] Start: 11-14[facility] Start: 11-13-2024 End: 11-17-[address] Bernabe Reese MD Work Phone: [facility] Work Phone: Start: 11-13-2024 End: 11-17-[address] Ramon Garcia DPM -[facility] [place] Work Phone: Start: 11-13-2024 End: 11-17-2024 Dr. Ramon Garcia DPM -[facility] Work Phone: Start: 11-07-2024 ambulatory Kelli Husseini ty:[facility] Start: 11-07-[address] Kelli Salgado MD [facility] Start: 11-07-2024 Dr. Kelli Salgado MD [facility] Start: 11-02-2024 ambulatory Kelli Husseini ty:[facility] Start: 11-02-[address] Kelli Salgado MD -[facility] Start: 11-02-[facility]24 [facility] Start: 10-31-2024 ambulatory Kelli Husseini ty:[facility] Start: 10-31-[address] Kelli Salgado MD -[facility] Start: 10-31-2024 Dr. Kelli Salgado MD -[facility] Start: 10-16-2024 End: 10-16-2024 ambulatory UNKNOWN PROVIDER Facility:[facility] Start: 10-16-2024 End: 10-30-2024 Evaluation and management of inpatient Kevin Soriano MD Work Phone: [id number] Start: 10-16-2024 Non-patient / Non-visit Dr. Haily Santos [facility] Work Phone: Start: 10-16-2024 Dr. Haily Santos [facility] Work Phone: Start: 10-15-2024 Non-patient / Non-visit Dr. Haily Santos [facility] Work Phone: Start: 10-15-2024 Dr. Haily Santos [facility] Work Phone: Start: 10-14-2024 Non-patient / Non-visit Dr. Ozzy Cabrera [facility] Work Phone: Start: 10-14-2024 Dr. Ozzy Cabrera [facility] Work Phone: Start: 10-13-2024 Non-patient / Non-visit Dr. Ozzy Cabrera [facility] Work Phone: Start: 10-13-2024 Dr. Ozzy Cabrera [facility] Work Phone: Start: 10-12-2024 Non-patient / Non-visit Dr. Ozzy Cabrera [facility] Work Phone: Start: 10-12-2024 Dr. Ozzy Cabrera [facility] Work Phone: Start: 10-12-2024 ambulatory Bernabe Reese Facilit y:[facility] Start: 10-11-2024 Non-patient / Non-visit Dr. Ozzy Cabrera [facility] Work Phone: Start: 10-11-2024 Dr. Ozzy Cabrera [facility] Work Phone: Start: 10-11-2024 End: 10-11-2024 [facility] Start: 10-11-2024 End: 10-11-2024 Non-patient / Non-visit Dr. Chetan Cowan MD -[facility] Work Phone: Start: 10-11-2024 End: 10-11-2024 Dr. Chetan Cowan MD -[facility] Work Phone: Start: 10-10-2024 Non-patient / Non-visit Dr. Ozzy Cabrera [facility] Work Phone: Start: 10-10-2024 Dr. Ozzy Cabrera [facility] Work Phone: Start: 2024 End: 10-16-2024 Dr. Haily Santos DO -Intensive Care Unit Work Phone: Start: 2024 ambulatory Bernabe Mary Ann Facilit y:[facility] Start: 2024 End: 10-16-2024 Evaluation and management of inpatient Dr. Chula Antunez MD -Medical Surgical 3 Work Phone: Start: 2024 End: 10-17-2024 ambulatory [facility] Ann Facility:[facility] Start: 2024 End: 10-17-[address] Ramon [facility] Work Phone: Start: [address] Ramon vieira DPJoyce [facility] Work Phone: Start: 2024 End: 10-17-2024 Dr. Ramon Garcia DPJoyce -[facility] Work Phone: Start: 10-02-[address] Ramon vieira DPM -[facility] Work Phone: Start: 09-28-2024 End: 09-28-[address] Bernabe Reese MD Work Phone: [facility] Work Phone: Start: 09-28-2024 End: 09-28-[address] Ramon Garcia DPM -Laboratory, [place] Work Phone: Start: 09-28-2024 End: 09-28-2024 Dr. Ramon Garcia DPM -Laboratory [facility] Work Phone: Start: 09-28-2024 End: 09-28-2024 ambulatory Bernabe Reese Facility:[facility] Start: 08-22-2024 End: 08-22-[address] Bernabe Reese MD Work Phone: [facility] Work Phone: Start: 08-22-2024 End: 08-22-[address] Ramon Garcia DPM -Laboratory, [place] Work Phone: Start: 08-22-2024 End: 08-22-2024 Dr. Ramon Garcia DPJoyce -Laboratory Speci men Work Phone: Start: 08-22-2024 End: 08-22-2024 ambulatory Bernabe Reese Facility:[facility] Start: 08-15-2024 ambulatory Bernabe Reese Facilit y:[facility] Start: 08-02-2024 End: 08-02-[address] Bernabe Reese MD -Laboratory, [facility] Start: 08-02-2024 End: 08-02-2024 ambulatory Bernabe Reese Facility:[facility] Start: 06-19-2024 End: 06-19-[address] Bernabe Reese MD -Laboratory, [facility] Start: 06-19-2024 End: 06-19-2024 ambulatory Bernabe Reese Facility:[facility] Start: 03-08-2024 ambulatory Bernabe Reese Facilit y:[facility] Start: 02-13-2024 End: 02-13-2024 ambulatory Bernabe Reese Facility:[facility] Start: 12-28-2023 End: 12-28-2023 ambulatory Bernabe Reese Facility:[facility] Start: 09-09-2023 End: 09-09-[address] Bernabe Reese Work Phone: [facility] Work Phone: Start: 09-09-2023 End: 09-09-[address] Bern[facility]ese [facility] Phone[facility] Start: 07-11-2023 End: 07-11-[address] Bernabe Reese Work Phone: [facility] Work Phone: Start: 07-11-2023 End: 07-11-[address] Bernabe Reese Work Phone: [facility] Work Phone: Start: 05-23-2023 Non-patient / Non-visit Dr. Bernabe Reese Work Phone: [facility] Work Phone: Start: 05-22-2023 Non-patient / Non-visit Dr. Bernabe Reese Work Phone: [facility] Work Phone: Start: 05-21-2023 End: 05-23-2023 Evaluation and management of inpatient Dr. Bernabe Reese Work Phone: [facility]-Medical Surgical 3 Work Phone: Start: 04-15-2023 End: 04-15-[address] Bernabe Reese Work Phone: [facility] Work Phone: Start: 04-15-2023 End: 04-15-[address] Bernabe Reese Work Phone: [facility] Start: 03-24-2023 End: 03-24-[address] Bernabe Reese Work Phone: [facility] Work Phone: Start: 12-03-2022 Non-patient / Non-visit Dr. Bernabe Reese Work Phone: [facility] Start: 12-02-2022 Non-patient / Non-visit Dr. Bernabe Reese Work Phone: [facility] Start: 12-01-2022 Non-patient / Non-visit Dr. Bernabe Reese Work Phone: [facility] Start: 11-30-2022 Non-patient / Non-visit Dr. Bernabe Reese Work Phone: [facility] Start: 11-29-2022 Non-patient / Non-visit Dr. Bernabe Reese Work Phone: [facility] Start: 11-29-2022 Non-patient / Non-visit Dr. Bernabe Reese Work Phone: [facility] Start: 11-28-2022 End: 12-03-2022 Evaluation and management of inpatient Dr. Bernabe Reese Work Phone: [facility]-Progressive Care Unit Start: 11-28-2022 End: 11-28-2022 Emergency department patient visit Dr. Bernabe Reese Work Phone: [facility]-Emergency Department Start: 11-01-2022 End: 11-01-[address] Bernabe Reese Work Phone: [facility] Start: 10-22-2022 End: 10-22-[address] Bernabe Reese Work Phone: [facility] Work Phone: Start: 10-22-2022 End: 10-22-[address] Bernabe Reese Work Phone: [facility] Start: 09-27-2022 End: 09-27-[address] Bernabe Reese Work Phone: [facility] Start: 08-27-2022 Patient encounter procedure [facility] Start: 07-15-2022 End: 07-15-[address] [facility] Work Phone: Start: 07-15-2022 End: 07-15-2022 Patient encounter procedure [facility] Start: 06-16-2022 End: 06-16-[address] Bernabe Reese Work Phone: [facility] Work Phone: Start: 06-16-2022 End: 06-16-[address] Bernabe Reese Work Phone: [facility] Start: 03-12-2022 End: 03-12-[address] Bernabe Reese Work Phone: [facility] Start: 03-09-2022 End: 03-09-[address] Bernabe Reese Work Phone: [facility] Start: 01-19-2022 End: 01-19-2022 Patient encounter procedure [facility] Start: 10-26-2021 End: 10-26-2021 Patient encounter procedure [facility] Start: 09-11-2021 End: 09-11-2021 Patient encounter procedure [facility] Start: 02-10-2018 End: 02-10-2018 Emergency department patient visit ANTHONY OSUNA [facility] Start: 11-24-2017 Ambulatory Dillan Telles y:[facility] Start: 04-05-2017 End: 04-07-2017 [facility] Start: 03-17-2017 End: 03-17-2017 Ambulatory [facility] Start: 03-16-2017 Ambulatory [facility] Start: 03-16-2017 End: 04-07-2017 Ambulatory [facility] Procedures Date Procedure Procedure Detail Performing Clinician Start: 12-10-2024 Blood count smear mc rscp w/mnl difrntl wbc count Dr. Bernabe Reese MD Work Phone: Start: 12-10-2024 Mean corpuscular hemoglobin concentration determination Dr. Bernabe Reese MD Work Phone: Start: 12-10-2024 Nucleated red blood cell count procedure Dr. Bernabe Reese MD Work Phone: Start: 12-10-2024 Platelet mean volume determination Dr. Bernabe Reese MD Work Phone: Start: 11-29-2024 CT of head without contrast Dr. Bernabe Reese MD Work Phone: Start: 11-21-2024 Blood count smear mc rscp w/mnl difrntl wbc count Dr. Bernabe Reese MD Work Phone: Start: 11-21-2024 Mean corpuscular hemoglobin concentration determination Dr. Bernabe Reese MD Work Phone: Start: 11-21-2024 Nucleated red blood cell count procedure Dr. Bernabe Reese MD Work Phone: Start: 11-21-2024 Platelet mean volume determination Dr. Bernabe Reese MD Work Phone: Start: 11-14-2024 Blood count smear mc rscp w/mnl difrntl wbc count Dr. Bernabe Reese MD Work Phone: Start: 11-14-2024 Mean corpuscular hemoglobin concentration determination Dr. Bernabe Reese MD Work Phone: Start: 11-14-2024 Nucleated red blood cell count procedure Dr. Bernabe Reese MD Work Phone: Start: 11-14-2024 Platelet mean volume determination Dr. Bernabe Reese MD Work Phone: Start: 11-07-2024 Blood count smear mc rscp w/mnl difrntl wbc count Dr. Bernabe Reese MD Work Phone: Start: 11-07-2024 Mean corpuscular hemoglobin concentration determination Dr. Bernabe Reese MD Work Phone: Start: 11-07-2024 Nucleated red blood cell count procedure Dr. Bernabe Reese MD Work Phone: Start: 11-07-2024 Platelet mean volume determination Dr. Bernabe Reese MD Work Phone: Start: 10-31-2024 Mean corpuscular hemoglobin concentration determination Dr. Bernabe Reese MD Work Phone: Start: 10-31-2024 Platelet mean volume determination Dr. Bernabe Reese MD Work Phone: Start: 10-30-2024 Glucose measurement, blood Elizabeth Bettencourt MD Work Phone: Start: 10-30-2024 Oscillating positive expiratory pressure (flutter) physiotherapy Francie Grier [employer]PER[employer]-PROGRAM COORDINATOR [employer] Work Phone: Start: 10-29-2024 Glucose measurement, blood Elizabeth Bettencourt MD Work Phone: Start: 10-29-2024 Glucose measurement, blood Elizabeth Bettencourt MD Work Phone: Start: 10-29-2024 Glucose measurement, blood Elizabeth Bettencourt MD Work Phone: Start: 10-29-2024 Glucose measurement, blood Elizabeth Bettencourt MD Work Phone: Start: 10-29-2024 Creatinine blood Roz Alejandre SUPERVISOR [employer]-PROGRAM COORDINATOR EXECUTIVE EDUCATION Work Phone: Start: 10-29-2024 Oscillating positive expiratory pressure (flutter) physiotherapy Francie Juarez Gadielhughdean SUPERVISOR [employer]-[facility] Work Phone: Start: 10-28-2024 Glucose measurement, blood Elizabeth Bettencourt MD Work Phone: Start: 10-28-2024 Glucose measurement, blood Elizabeth Bettencourt MD Work Phone: Start: 10-28-2024 Glucose measurement, blood Elizabeth Bettencourt MD Work Phone: Start: 10-28-2024 Glucose measurement, blood Elizabeth Bettencourt MD Work Phone: Start: 10-27-2024 Glucose measurement, blood Elizabeth Bettencourt MD Work Phone: Start: 10-27-2024 Glucose measurement, blood Elizabeth Bettencourt MD Work Phone: Start: 10-27-2024 Drug screen quantita tive vancomycin Elizabeth Bettencourt MD Work Phone: Start: 10-27-2024 Glucose measurement, blood Elizabeth Bettencourt MD Work Phone: Start: 10-27-2024 Glucose measurement, blood Elizabeth Bettencourt MD Work Phone: Start: 10-26-2024 Glucose measurement, blood Elizabeth Bettencourt MD Work Phone: Start: 10-26-2024 CONTINUOUS CARDIAC MONITORING STRIP Other Other Start: 10-26-2024 Glucose measurement, blood Elizabeth Bettencourt MD Work Phone: Start: 10-26-2024 CARDIAC RHYTHM (SCANNED) Other Other OT Start: 10-26-2024 Glucose measurement, blood Elizabeth Bettencourt MD Work Phone: Start: 10-26-2024 Creatinine blood Braden Irby DO Work Phone: Start: 10-26-2024 Ct head/brain w/o co ntrast material Roz Alejandre SUPERVISOR [employer]-PROGRAM COORDINATOR [employer]IVE [employer]UCATION Work Phone: Start: 10-26-2024 Oscillating positive expiratory pressure (flutter) physiotherapy Francie Grier [facility] Work Phone: Start: 10-25-2024 Glucose measurement, blood Elizabeth Bettencourt MD Work Phone: Start: 10-25-2024 Glucose measurement, blood Elizabeth Bettencourt MD Work Phone: Start: 10-25-2024 Glucose measurement, blood Elizabeth Bettencourt MD Work Phone: Start: 10-25-2024 Glucose measurement, blood Elizabeth Bettencourt MD Work Phone: Start: 10-25-2024 Glucose measurement, blood Elizabeth Bettencourt MD Work Phone: Start: 10-25-2024 Creatinine blood Braden Irby DO Work Phone: Start: 10-25-2024 Oscillating positive expiratory pressure (flutter) physiotherapy Francie Grier [facility] Work Phone: Start: 10-24-2024 Glucose measurement, blood Elizabeth Bettencourt MD Work Phone: Start: 10-24-2024 Creatinine blood Randkike er S Megan [facility] Work Phone: Start: 10-24-2024 Radiologic exam ches t single view Randheer S Megan [facility] Work Phone: Start: 10-24-2024 Glucose measurement, blood Elizabeth Bettencourt MD Work Phone: Start: 10-24-2024 Glucose measurement, blood Elizabeth Bettencourt MD Work Phone: Start: 10-24-2024 Glucose measurement, blood Elizabeth Bettencourt MD Work Phone: Start: 10-24-2024 Oscillating positive expiratory pressure (flutter) physiotherapy Francie Grier SUPERVISOR [employer]-PROGRAM COORDINATOR [employer] Work Phone: Start: 10-23-2024 Creatinine blood Braden Irby DO Work Phone: Start: 10-23-2024 Drug screen quantita tive vancomycin Dayami E Riaz [facility] Start: 10-23-2024 Glucose measurement, blood Elizabeth Bettencourt MD Work Phone: Start: 10-23-2024 Glucose measurement, blood Elizabeth Bettencourt MD Work Phone: Start: 10-23-2024 Glucose measurement, blood Elizabeth Bettencourt MD Work Phone: Start: 10-23-2024 Glucose measurement, blood Elizabeth Bettencourt MD Work Phone: Start: 10-23-2024 Oscillating positive expiratory pressure (flutter) physiotherapy Francie Grier SUPERVISOR [employer]-PROGRAM COORDINATOR [employer] Work Phone: Start: 10-23-2024 Creatinine blood Braden Irby DO Work Phone: Start: 10-22-2024 Glucose measurement, blood Elizabeth Bettencourt MD Work Phone: Start: 10-22-2024 Glucose measurement, blood Elizabeth Bettencourt MD Work Phone: Start: 10-22-2024 Glucose measurement, blood Elizabeth Bettencourt MD Work Phone: Start: 10-22-2024 Glucose measurement, blood Elizabeth Bettencourt MD Work Phone: Start: 10-22-2024 Gases blood ph direc t everardo xcpt pulse oximitry Shweta Chan PA-C Work Phone: Start: 10-22-2024 Oscillating positive expiratory pressure (flutter) physiotherapy Francie Grier SUPERVISOR [employer]-PROGRAM COORDINATOR EXEC[employer]IVE [employer]UCATION Work Phone: Start: 10-22-2024 Calcium ionized Francie Grier SUPERVISOR [employer]-PROGRAM COORDINATOR [employer]IVE [employer]UCATION Work Phone: Start: 10-21-2024 Drug screen quantita tive vancomycin Maryann Douglas [facility] Start: 10-21-2024 Glucose measurement, blood Dillan Guzman MD Work Phone: Start: 10-21-2024 Heparin assay Maryann farah [facility] Start: 10-21-2024 Mri brain brain stem w/o contrast material Trey HYLTON-C Work Phone: Start: 10-21-2024 Glucose measurement, blood Dillan Guzman MD Work Phone: Start: 10-21-2024 Radiologic exam ches t single view Kearajuraez Castillo SUPERVISOR [employer]-PROGRAM COORDINATOR [employer]IVE [employer]UCATION Work Phone: Start: 10-21-2024 End: 10-21-2024 Glucose measurement, blood Dillan Guzman MD Work Phone: Start: 10-21-2024 Oscillating positive expiratory pressure (flutter) physiotherapy Francie Grier SUPERVISOR [employer]-PROGRAM COORDINATOR EX[employer]IVE [employer]UCATION Work Phone: Start: 10-20-2024 End: 10-21-2024 Calcium ionized Francie Grier SUPERVISOR [employer]-PROGRAM COORDINATOR EXEC[employer]IVE [employer]UCATION Work Phone: Start: 10-20-2024 Glucose measurement, blood Dillan Guzman MD Work Phone: Start: 10-20-2024 Glucose measurement, blood Dillan Guzman MD Work Phone: Start: 10-20-2024 Radiologic exam ches t single view Trey Morse PA-C Work Phone: Start: 10-20-2024 Glucose measurement, blood Dilaln Guzman MD Work Phone: Start: 10-20-2024 Drug screen quantita tive vancomycin Maryann Douglas [facility] Start: 10-20-2024 Glucose measurement, blood Dillan Guzman MD Work Phone: Start: 10-20-2024 Ct head/brain w/o co ntrast material Chiquita Humphrey PA-C Work Phone: Start: 10-20-2024 Oscillating positive expiratory pressure (flutter) physiotherapy Francie Grier SUPERVISOR [employer]-PROGRAM COORDINATOR EXECUTIVE EDUCATION Work Phone: Start: 10-20-2024 Calcium ionized Francie Grier SUPERVISOR [employer]-PROGRAM COORDINATOR EXECUTIVE [employer]UCATION Work Phone: Start: 10-19-2024 Glucose measurement, blood Dillan Guzman MD Work Phone: Start: 10-19-2024 Creatinine blood Shaheen Humphrey PA-C Work Phone: Start: 10-19-2024 Glucose measurement, blood Dillan Guzman MD Work Phone: Start: 10-19-2024 Gases blood ph direc t everardo xcpt pulse oximitry Jenn R Jeremyhini DO Start: 10-19-2024 Glucose measurement, blood Dillan Guzman MD Work Phone: Start: 10-19-2024 Radiologic exam ches t single view Jenn R Franchini DO Start: 10-19-2024 Gases blood ph direc t everardo xcpt pulse oximitry Jenn R Jeremyhini DO Start: 10-19-2024 Glucose measurement, blood Dillan Guzman MD Work Phone: Start: 10-19-2024 Oscillating positive expiratory pressure (flutter) physiotherapy Francie Grier SUPERVISOR [employer]-PROGRAM COORDINATOR EXEC[employer]IVE EDUCATION Work Phone: Start: 10-19-2024 Calcium ionized Francie Grier SUPERVISOR [employer]-PROGRAM COORDINATOR EXECUTIVE EDUCATION Work Phone: Start: 10-18-2024 Glucose measurement, blood Dillan Guzman MD Work Phone: Start: 10-18-2024 Radex foot complete minimum 3 views Shweta Chan PA-C Work Phone: Start: 10-18-2024 Glucose measurement, blood Dillan Guzman MD Work Phone: Start: 10-18-2024 Drug screen quantita tive vancomycin Sangita Juarez Valenzuela [facility] Start: 10-18-2024 Blood count platelet automated Chiquita L Kam PA-C Work Phone: Start: 10-18-2024 Glucose measurement, blood Dillan Guzman MD Work Phone: Start: 10-18-2024 Iadna s aureus ampli fied probe tq Amelia L Ciupak PA-C Start: 10-18-2024 Radiologic exam ches t single view Shweta A [place] PA-C Work Phone: Start: 10-18-2024 Ct head/brain w/o co ntrast material Shweta A Jacey PA-C Work Phone: Start: 10-18-2024 Sodium serum plasma or whole blood Shweta Pizarro Jacey PA-C Work Phone: Start: 10-18-2024 Glucose measurement, blood Dillan Guzman MD Work Phone: Start: 10-18-2024 Gases blood ph direc t everardo xcpt pulse oximitry Jenn Redman DO Start: 10-18-2024 Electrolyte panel Victo roshni Barreto Kam PA-C Work Phone: Start: 10-18-2024 Oscillating positive expiratory pressure (flutter) physiotherapy Francie Juarez Marvel SUPERVISOR [employer]-PROGRAM COORDINATOR EXEC[employer]IVE [employer]UCATION Work Phone: Start: 10-18-2024 Physiotherapy of chest Francie Juarez Marvel SUPERVISOR [employer]-PROGRAM COORDINATOR EXEC[employer]IVE EDUCATION Work Phone: Start: 10-18-2024 Glucose measurement, blood Dillan Guzman MD Work Phone: Start: 10-18-2024 Calcium ionized Francie Pizarro Gadielhughdean SUPERVISOR [employer]-PROGRAM COORDINATOR EXECUTIVE EDUCATION Work Phone: Start: 10-17-2024 Glucose measurement, blood Dillan Guzman MD Work Phone: Start: 10-17-2024 Sodium serum plasma or whole blood Shweta Pizarro Jacey PA-C Work Phone: Start: 10-17-2024 Creatinine blood Kelli n Juarez [place] PA-C Work Phone: Start: 10-17-2024 Electrolyte panel Victo roshni Barerto Kam PA-C Work Phone: Start: 10-17-2024 Gases blood ph direc t everardo xcpt pulse oximitry Chiquita Barreto Kam PA-C Work Phone: Start: 10-17-2024 Radiologic exam ches t single view Chiquita Mary Lou HYLTON-C Work Phone: Start: 10-17-2024 Glucose measurement, blood Dillan Guzman MD Work Phone: Start: 10-17-2024 Transthoracic echocardiography Kristen Ramon MD Work Phone: Start: 10-17-2024 Glucose measurement, blood Dillan Guzman MD Work Phone: Start: 10-17-2024 Drug screen quantita tive vancomycin Miriam Denson MD Work Phone: Start: 10-17-2024 Ct head/brain w/o co ntrast material Miriam Denson MD Work Phone: Start: 10-17-2024 EXTRA MICRO Francie dukes SUPERVISOR [employer]-PROGRAM COORDINATOR EXECUTIVE EDUCATION Work Phone: Start: 10-17-2024 URINALYSIS REFLEX TO CULTURE Francie Grier SUPERVISOR NEWSPAPER DELIVERIES-PROGRAM COORDINATOR EXECUTIVE EDUCATION Work Phone: Start: 10-17-2024 Assay of lactate Francie Grier SUPERVISOR NEWSPAPER DELIVERIES-PROGRAM COORDINATOR EXECUTIVE EDUCATION Work Phone: Start: 10-17-2024 End: 10-17-2024 Culture bacterial blood aerobic w/id isolates Francie Grier SUPERVISOR NEWSPAPER DELIVERIES-PROGRAM COORDINATOR EXECUTIVE EDUCATION Work Phone: Start: 10-17-2024 Oscillating positive expiratory pressure (flutter) physiotherapy Francie Grier SUPERVISOR NEWSPAPER DELIVERIES-PROGRAM COORDINATOR EXECUTIVE EDUCATION Work Phone: Start: 10-17-2024 Physiotherapy of chest Francie Grier SUPERVISOR NEWSPAPER DELIVERIES-PROGRAM COORDINATOR EXECUTIVE EDUCATION Work Phone: Start: 10-16-2024 Physiotherapy of chest Francie Grier SUPERVISOR NEWSPAPER DELIVERIES-PROGRAM COORDINATOR EXECUTIVE EDUCATION Work Phone: Start: 10-16-2024 Radiologic exam ches t single view Francie Grier SUPERVISOR NEWSPAPER DELIVERIES-[facility] Work Phone: Start: 10-16-2024 Artl cathj/cannulj mntr/transfusion spx prq Francie Grier SUPERVISOR NEWSPAPER DELIVERIES-[facility] Work Phone: Start: 10-16-2024 Glucose measurement, blood Dillan Guzman MD Work Phone: Start: 10-16-2024 Calcium ionized Francie Grier SUPERVISOR NEWSPAPER DELIVERIES-[facility] Work Phone: Start: 10-16-2024 Lipid panel Francie dukes SUPERVISOR NEWSPAPER DELIVERIES-[facility] Work Phone: Start: 10-16-2024 Ecg routine ecg w/le ast 12 lds trcg only w/o i&r Francie Grier SUPERVISOR NEWSPAPER DELIVERIES-[facility] Work Phone: Start: 10-16-2024 EXTRA MICRO Kristen Ramon MD Work Phone: Start: 10-16-2024 URINALYSIS REFLEX TO CULTURE Kristen Ramon MD Work Phone: Start: 10-16-2024 Urnls dip stick/tabl et reagent auto microscopy Kristen Ramon MD Work Phone: Start: 10-16-2024 ABORH TYPE RECONFIRMATION Cynthia Schmid DO Work Phone: Start: 10-16-2024 Ecg routine ecg w/le ast 12 lds trcg only w/o i&r Miriam Denson MD Work Phone: Start: 10-16-2024 End: 10-16-2024 Ct angiography head w/contrast/noncontrast Miriam Denson MD Work Phone: Start: 10-16-2024 Antibody screen DILLAN WANG Comment on above: Performed By: #### X M #### [facility] ([facility]) [address] [place] [address] Start: 10-16-2024 CBC AND ELECTRONIC DIFF Miriam Denson MD Work Phone: Start: 10-16-2024 Complete blood count with white cell differential, automated Miriam Denson MD Work Phone: Start: 10-16-2024 GOLD TOP TUBE Miriam koo MD Work Phone: Start: 10-16-2024 Hemoglobin glycosyla justin a1c Kristen Ramon MD Work Phone: Start: 10-16-2024 End: 10-16-2024 Hepatic function panel Miriam Denson MD Work Phone: Start: 10-16-2024 LAVENDER TOP TUBE Miriam Denson MD Work Phone: Start: 10-16-2024 LT BLUE TOP TUBE Miriam Denson MD Work Phone: Start: 10-16-2024 MINT GREEN TOP TUBE Laura Denson MD Work Phone: Start: 10-16-2024 RAINBOW DRAW Miriam tierney MD Work Phone: Start: 10-16-2024 Glucose measurement, blood Kevin Soriano MD Work Phone: Start: 10-16-2024 CT of head without contrast Dr. Bernabe Reese MD Work Phone: Start: 10-15-[address] Bernabe Reese MD Work Phone: Start: 10-15-2024 Gram stain microscopy Peña Reese MD Work Phone: Start: 10-15-2024 End: 10-15-2024 Microbial culture, routine Dr. Bernabe rodney MD Work Phone: Start: 10-15-2024 Fluoroscopic guidance Peña Reese MD Work Phone: Start: 10-15-2024 X-ray of calcaneus, two or more views Dr. Bernabe Reese MD Work Phone: Start: 10-15-2024 External fixation of tibia Dr. Bernabe Reese MD Work Phone: Start: 10-15-2024 Blood count smear mc rscp w/mnl difrntl wbc count Dr. Bernabe Reese MD Work Phone: Start: 10-15-[address] Bernabe Reese MD Work Phone: Start: 10-15-2024 Mean corpuscular hemoglobin concentration determination Dr. Bernabe Reese MD Work Phone: Start: 10-15-2024 Nucleated red blood cell count procedure Dr. Bernabe Reese MD Work Phone: Start: 10-15-2024 Platelet mean volume determination Dr. Bernabe Reese MD Work Phone: Start: 10-12-2024 Plain chest X-ray Dr. Brett Reese MD Work Phone: Start: 10-12-2024 End: 10-12-2024 Plain chest X-ray Dr. Bernabe Reese MD Work Phone: Start: 10-11-2024 Acid fast bacilli culture Dr. Bernabe Reese MD Work Phone: Start: 10-11-[address] Bernabe Reese MD Work Phone: Start: 10-11-2024 Gram stain microscopy D concha Reese MD Work Phone: Start: 10-11-2024 End: 10-11-2024 Microbial culture, routine Dr. Bernabe rodney MD Work Phone: Start: 10-11-[address] Bernabe saldaña MD Work Phone: Start: 10-10-2024 MRI of joint of lowe r extremity Dr. Bernabe Reese MD Work Phone: Start: [address] Alona Reese MD Work Phone: Start: 2024 Calculation of international normalized ratio Dr. Bernabe Reese MD Work Phone: Start: [address] Bernabe Reese MD Work Phone: Start: [address] Bernabe Reese MD Work Phone: Start: 2024 Gram stain microscopy Peña Reese MD Work Phone: Start: 2024 End: 2024 Microbial culture, routine Dr. Bernabe rodney MD Work Phone: Start: 2024 Plain chest X-ray Dr. Brett Reese MD Work Phone: Start: 2024 X-ray of foot, three or more views Dr. Bernabe Reese MD Work Phone: Start: 09-28-2024 Blood count smear mc rscp w/mnl difrntl wbc count Dr. Bernabe Reese MD Work Phone: Start: 09-28-2024 Mean corpuscular hemoglobin concentration determination Dr. Bernabe Reese MD Work Phone: Start: 09-28-2024 Nucleated red blood cell count procedure Dr. Bernabe Reese MD Work Phone: Start: 09-28-2024 Platelet mean volume determination Dr. Bernabe Reese MD Work Phone: Start: 08-22-2024 Acid fast bacilli culture Dr. Bernabe Reese MD Work Phone: Start: 08-22-2024 Gram stain microscopy Peña Reese MD Work Phone: Start: 08-22-2024 End: 08-22-2024 Microbial culture, routine Dr. Bernabe rodney MD Work Phone: Start: 02-13-2025 Prostate specific an tigen measurement Dr. Bernabe Reese MD Work Phone: Comment on above: This test was perfor med using the TPSA assay method for [employer] chemistry system. Values obtained with differentassay methods cannot be used interchangably.When changing PSA assays in the course of monitoring apatient, additional sequential testing should be carriedout to confirm baseline values. Start: 05-21-2023 Plain X-ray of tibia and fibula Dr. Bernabe Reese Work Phone: Start: 05-21-[address] Evette Reese Work Phone: Start: 05-21-[address] Bernabe Reese Work Phone: Start: 05-21-2023 Bacteria identified in Blood by Culture Dr. Bernabe Reese Work Phone: Start: 05-21-2023 SARS-CoV-2 & FLU Ant igen (Rapid) Dr. Bernabe Reese Work Phone: Start: 05-21-[address] Bernabe Reese Work Phone: Start: 05-21-[address] Bernabe Reese Work Phone: Start: 05-21-2023 Plain chest X-ray Dr. Brett Reese Work Phone: Start: 11-30-2022 Computed tomography of abdomen and pelvis with intravenous contrast Dr. Bernabe Reese Work Phone: Start: 11-28-2022 Plain chest X-ray Dr. Brett Reese Work Phone: Start: 11-28-2022 CT of head without contrast Dr. Bernabe Reese Work Phone: Start: 11-28-2022 Radiologic examinati on of knee Dr. Bernabe Reese Work Phone: Start: 11-28-2022 CT of head without contrast Dr. Bernabe Reese Work Phone: Start: 05-15-2023 US scan of thyroid Dr. Bernabe Reese Work Phone: Start: 10-26-2021 US scan of thyroid Start: 02-10-2018 EKG 12-LEAD ANTHONY DI MITROV Start: 02-10-2018 Blood count complete auto&auto difrntl wbc VESELIN ENRRIQUE Start: 02-10-2018 BRAIN NATRIURETIC PEPTIDE VESELIN ENRRIQUE Start: 02-10-2018 Comprehensive metabo lic panel VESELIN ENRRIQUE Start: 02-10-2018 TROPONIN ANTHONY DI MITROV Start: 02-10-2018 Urnls dip stick/tabl et rgnt auto w/[facility] Bacteria identified in Blood by Culture Dr. 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 Bernabe subramanian Work Phone: Viral antigen assay Dr. Bernabe Reese Work Phone: Plan of Treatment Date Care Activity Detail Author Start: 10-16-2029 Lipid panel [facility] Start: 10-29-2025 Finding of potassium level (finding) [facility] Start: 02-18-2025 Influenza vaccination [facility] Start: 11-06-2024 End: 10-28-2025 CT Head WO contrast [facility] Start: 10-16-[address] [facility] Start: 10-16-[address] [facility] Start: 10-16-[address] [facility] Start: 10-16-2024 Catheterization of vein [facility] Start: 10-16-2024 Elevation of head of bed [facility] Start: 10-16-[address] [facility] Start: 10-16-2024 Notification of physician [facility] Start: 10-16-2024 End: 10-16-[address] [facility] Start: 10-16-2024 Vital signs measurements [facility] Start: 10-16-2024 Continuous pulse oximetry [facility] Start: 10-16-[address] [facility] Start: 10-16-2024 End: 10-16-2024 Telemedicine consultation with patient [facility] Start: 10-16-2024 End: 10-16-2024 Tobacco use cessation education [facility] Start: 10-16-[address] [facility] Start: 10-12-[address] [facility] Start: 10-11-[address] [facility] Start: 10-11-2024 Referral to service [facility] Start: 10-11-[address] [facility] Start: 10-10-[address] [facility] Start: 10-10-[address] [facility] Start: 2024 Dual pressure spontaneous ventilation support [facility] Start: 2024 Application of intermittent pneumatic compression device [facility] Start: 2024 Assessment of risk of venous thromboembolism [facility] Start: 2024 Care regimes management [facility] Start: 2024 Consultation for treatment [facility] Start: 2024 Insertion of catheter into peripheral vein [facility] Start: 2024 Notification of physician [facility] Start: 2024 Providing care according to standard [facility] Start: 2024 Provision of activity privileges [facility] Start: 2024 Referral to occupational therapist [facility] Start: 2024 Referral to title processor [facility] Start: 2024 Referral to service [facility] Start: 2024 End: [address] [facility] Start: 2024 Following clinical pathway protocol [facility] Start: 20[address] [facility] Start: [address] [facility] Start: 2024 Hospital admission, emergency, from emergency room, medical nature [facility] Start: 2024 Source specific culture [facility] Start: 2024 Anaerobic Culture Anaerobic Culture [facility] Start: 2024 Bacteria identified in Blood by Culture Blood Culture [facility] Start: 2024 Microscopic observation [Identifier] in Unspecified specimen by Gram stain [facility] Start: 2024 Wound Culture Wound Culture [facility] Start: 2024 End: [address] [facility] Start: 2024 Inhalation therapy procedure [facility] Start: 2024 Patient referral to dietitian [facility] Start: 05-24-[address] [facility] Start: 05-23-[address] [facility] Start: 05-23-2023 Patient referral to dietitian [facility] Start: 05-21-2023 Referral to title processor [facility] Start: 05-21-2023 Continuous positive airway pressure ventilation treatment [facility] Start: 05-21-2023 Following clinical pathway protocol [facility] Start: 05-21-2023 Ambulation without limitation [facility] Start: 05-21-2023 Assessment of risk of venous thromboembolism [facility] Start: 05-21-2023 Care regimes management [facility] Start: 05-21-[address] [facility] Start: 05-21-[address] [facility] Start: 05-21-2023 Insertion of catheter into peripheral vein [facility] Start: 05-21-2023 Notification of physician [facility] Start: 05-21-[address] [facility] Start: 05-21-2023 Providing care according to standard [facility] Start: 05-21-2023 Referral to occupational therapist [facility] Start: 05-21-2023 Referral to service [facility] Start: 05-21-[address] [facility] Start: 05-21-[address] [facility] Start: 05-21-[address] [facility] Start: 05-21-[address] [facility] Start: 05-21-2023 Bacteria identified in Blood by Culture Blood Culture [facility] Start: 05-21-[address] [facility] Start: 12-03-[address] [facility] Start: 12-02-[address] [facility] Start: 11-30-2022 End: 12-01-[address] [facility] Start: 11-30-2022 Care planning and problem solving actions [facility] Start: 11-30-2022 End: 11-30-[address] [facility] Start: 11-29-[address] [facility] Start: 11-29-2022 Care planning and problem solving actions [facility] Start: 11-29-[address] [facility] Start: 11-28-2022 End: 11-29-[address] [facility] Start: 11-28-2022 Care planning and problem solving actions [facility] Start: 11-28-2022 Continuous pulse oximetry [facility] Start: 11-28-2022 Following clinical pathway protocol [facility] Start: 11-28-2022 Assessment of risk of venous thromboembolism [facility] Start: 11-28-2022 Care regimes management [facility] Start: 11-28-2022 Insertion of catheter into peripheral vein [facility] Start: 11-28-2022 Measuring intake and output [facility] Start: 11-28-[address] [facility] Start: 11-28-2022 Providing care according to standard [facility] Start: 11-28-2022 Provision of activity privileges [facility] Start: 11-28-2022 Referral to occupational therapist [facility] Start: 11-28-2022 Referral to service [facility] Start: 11-28-[address] [facility] Start: 11-28-2022 Dual pressure spontaneous ventilation support [facility] Start: 11-28-2022 Patient referral to dietitian [facility] Start: 11-28-[address] [facility] Start: 06-20-2022 ADVANCE DIRECTIVE DISCUSSION ADVANCE DIRECTIVE DISCUSSION [facility] Start: 06-20-2022 DEPRESSION ASSESSMENT DEPRESSION ASSESSMENT [facility] Start: 02-18-2022 Influenza vaccination INFLUENZA (#1) [facility] Start: 10-10-2019 PNEUMOCOCCAL: 65+ (1 - PCV) PNEUMOCOCCAL: 65+ (1 - PCV) [facility] Start: 2014 [facility] Start: 2009 PROSTATE CANCER SCREENING DISCUSSION PROSTATE CANCER SCREENING DISCUSSION [facility] Start: 2004 SHINGRIX VACCINE (1 of 2) SHINGRIX VACCINE (1 of 2) [facility] Start: 10-10-1999 COLOGUARD (FIT-DNA) COLOGUARD (FIT-DNA) [facility] Start: 10-10-1999 Colonoscopy COLONOSCOPY [facility] Start: 10-10-1999 COLORECTAL CANCER SCREENING COLORECTAL CANCER SCREENING [facility] Start: 10-10-[address] COLONOGRAPHY [facility] Start: 10-10-1999 FECAL OCCULT BLOOD FECAL OCCULT BLOOD [facility] Start: 10-10-1999 Screening for malignant neoplasm of colon [facility] Start: 10-10-1999 SIGMOIDOSCOPY SIGMOIDOSCOPY [facility] Start: 1973 Pneumococcal vaccination [facility] Start: 1973 Third diphtheria, tetanus and acellular pertussis (DTaP) vaccination [facility] Start: 1973 Urine microalbumin profile DTAP,TDAP,TD (1 - Tdap) [facility] Start: 1973 [facility] Start: 1972 Hepatitis B surface antibody level LDL CHOLESTEROL [facility] Start: 1972 HEPATITIS C SCREENING HEPATITIS C SCREENING [facility] Start: 1964 3 comp foot exam completed DIABETIC FOOT EXAM [facility] Start: 1964 Hepatitis B screening URINE ALBUMIN:CREATININE RATIO [facility] Start: 1964 Hepatitis C antibody, confirmatory test DILATED RETINAL EXAM [facility] Start: 10-10-1959 Hemoglobin A1c/Hemoglobin.total in Blood HBA1C [facility] Start: 10-10-1959 [facility] Start: 04-10-1955 COVID-19 VACCINE (#1) COVID-19 VACCINE (#1) [facility] Start: 1954 ABDOMINAL AORTIC ANEURYSM SCREENING ABDOMINAL AORTIC ANEURYSM SCREENING [facility] Start: 1954 Hepatitis C screening [facility] Start: 1954 Tetanus vaccination [facility] Bacteria identified in Blood by Culture Blood Culture [facility] Bacteria identified in Unspecified specimen by Anaerobe culture [facility] Patient Education [facility] Work Phone: Patient referral [facility] Work Phone: End: 10-24-2024 Standard ECG [facility] End: 10-16-2024 VANCOMYCIN LEVEL, TROUGH (PRE DRUG LEVEL) [facility] Wound microscopy, cu lture and sensitivities [facility] Payers Date Payer Category Payer Medicare (Managed Care) [id number] 2024 Medicare [id number] 2023 Self-pay [id number] 2023 Medicare [id number] 2019 Unknown [id number] 2019 Private Health Insurance [employer] PPO [id number] 2019-Present [phone] [address] [place] [address] PPO [id number] 2014 Private Health Insurance [id number] 1954 Unknown [id number] [id number]. 732 1954 Unknown [id number] 2.16.840.1.847473.3.579.2. 594 Unknown [id number] 2.16.840.1.902388.3.579.2. 462 Unknown [id number] 2.16.840.1.850875.3.579.2. 462 Unknown [id number] 2.16.840.1.111099.3.579.2. 462 Unknown [id number] 2.16.840.1.162035.3.579.2. 462 Unknown [id number] 2.16.840.1.417728.3.579.2. 462 Unknown [id number] 2.16.840.1.156712.3.579.2. 462 Unknown [id number] 2.16.840.1.393227.3.579.2. 462 Unknown [id number] 2.16.840.1.541855.3.579.2. 462 Unknown [id number] 2.16.840.1.098372.3.579.2. 462 Unknown [id number] 2.16840.1.571012.3.579.2. 462 Unknown [id number] 2.16840.1.989339.3.579.2. 462 Unknown [id number] 2.840.1.455912.3.579.2. 462 Unknown [id number] 2.840.1.744195.3.579.2. 462 Unknown [id number] 2.840.1.462543.3.579.2. 462 Unknown [id number] 2.840.1.211262.3.579.2. 462 Unknown [id number] 2.840.1.600055.3.579.2. 462 Unknown [id number] 2.16.840.1.777166.3.579.2. 462 Unknown [id number] 2.16840.1.938916.3.579.2. 462 Unknown [id number] 2.840.1.435234.3.579.2. 462 Unknown [id number] 2.16840.1.971983.3.579.2. 462 Unknown [id number] 2.16840.1.132091.3.579.2. 462 Unknown [id number] 2.16.840.1.051387.3.579.2. 462 Unknown [id number] 2.16.840.1.795402.3.579.2. 462 Unknown [id number] 2.16840.1.280551.3.579.2. 462 Unknown [id number] 2.0.1.153757.3.579.2. 462 Unknown [id number] 2.0.1.010748.3.579.2. 462 Unknown [id number] 2.0.1.893865.3.579.2. 462 Unknown [id number] 2.0.1.186193.3.579.2. 462 Unknown [id number] 2.0.1.848307.3.579.2. 462 Social History Date Type Detail Facility Start: 05-13-2021 End: 07-11-2023 Tobacco smoking status SCIS Unknown if ever smoked [facility] Start: 09-17-2014 None [facility] Start: 10-29-2014 With Family [facility] Start: 10-01-2020 Non-smoker [facility] Start: 1955 Sex Assigned At Male [facility] Start: 03-16-2017 End: 07-11-2023 Tobacco smoking status NHIS Ex-smoker [facility] History of tobacco use Current smoker [facility] History of tobacco use Cigarette Smoker C 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 Start: 09-01-2024 End: 10-16-2024 Sex Male (finding) [facility] Start: 09-25-2024 End: 2024 Tobacco smoking status NHIS Never smoked tobacco (finding) [facility] Start: 10-17-2024 End: 10-24-2024 History of Social function [facility] Start: 10-17-2024 End: 10-24-2024 Tobacco use panel [facility] Medical Equipment Procedure Code Equipment Code Equipment Origin al Text Equipment Identifier Dates External fixation, tibia ([id number]) ()[id number] FDA Start: 10-15-2024 External fixation, tibia ([id number]) ()[id number] FDA Start: 10-15-2024 External fixation, tibia ([id number]) ()[id number] FDA Start: 10-15-2024 External fixation, tibia ([id number]) ()[id number] FDA Start: 10-15-2024 External fixation, tibia ([id number]) ()[id number] FDA Start: 10-15-2024 External fixation, tibia ()[id number] FDA Start: 10-15-2024 External fixation, tibia ([id number]) ()[id number] FDA Start: 10-15-2024 External fixation, tibia ([id number]) ()[id number] FDA Start: 10-15-2024 External fixation, tibia ()[id number] FDA Start: 10-15-2024 External fixation, tibia ()[id number] FDA Start: 10-15-2024 Debridement, wound DRESSING,SURG ICEL 4x8 FDA Start: 10-11-2024 Debridement, wound DRESSING,SURG ICEL 4x8 FDA Start: 10-11-2024 Debridement, wound DRESSING,SURG ICEL 4x8 FDA Start: 10-11-2024 Debridement, wound DRESSING,SURG ICEL 4x8 FDA Start: 10-11-2024 Debridement, wound FDA Start: 10-11-2024 Debridement, wound FDA Start: 10-11-2024 Amputation, foot MADELEINE 3GRM HEMOSTAT ABS FDA Start: 12-04-2020 Amputation, foot MADE[place] 3GRM HEMOSTAT ABS FDA Start: 12-04-2020 Amputation, foot MADELEINE 3GRM HEMOSTAT ABS FDA Start: 12-04-2020 Amputation, foot MADELEINE 3GRM HEMOSTAT ABS FDA Start: 12-04-2020 Amputation, foot MADELEINE 3GRM HEMOSTAT ABS FDA Start: 12-04-2020 Amputation, foot MADELEINE 3GRM HEMOSTAT ABS FDA Start: 12-04-2020 Amputation, foot MADELEINE 3GRM HEMOSTAT ABS FDA Start: 12-04-2020 Amputation, foot MADELEINE 3GRM HEMOSTAT ABS FDA Start: 12-04-2020 Amputation, foot MADELEINE 3GRM HEMOSTAT ABS FDA Start: 12-04-2020 Amputation, foot MADELEINE 3GRM HEMOSTAT ABS FDA Start: 12-04-2020 Amputation, foot MADELEINE 3GRM HEMOSTAT ABS FDA Start: 12-04-2020 Amputation, foot MADELEINE 3GRM HEMOSTAT ABS FDA Start: 12-04-2020 Amputation, foot MADELEINE 3GRM HEMOSTAT ABS FDA Start: 12-04-2020 Amputation, foot MADELEINE 3GRM HEMOSTAT ABS FDA Start: 12-04-2020 Amputation, foot MADELEINE 3GRM HEMOSTAT ABS FDA Start: 12-04-2020 Amputation, foot MADELEINE 3GRM HEMOSTAT ABS FDA Start: 12-04-2020 Amputation, foot MADELEINE 3GRM HEMOSTAT ABS FDA Start: 12-04-2020 Amputation, foot [place]ADE[place] 3GRM HEMOSTAT ABS FDA Start: 12-04-2020 Amputation, foot [place] 3GRM HEMOSTAT ABS FDA Start: 12-04-2020 Amputation, foot [place] 3GRM HEMOSTAT ABS FDA Start: 12-04-2020 Amputation, foot [place] 3GRM HEMOSTAT ABS FDA Start: 12-04-2020 Amputation, foot [place]ADE[place] 3GRM HEMOSTAT ABS FDA Start: 12-04-2020 Amputation, foot [place]ADE[place] 3GRM HEMOSTAT ABS FDA Start: 12-04-2020 Amputation, foot [place] 3GRM HEMOSTAT ABS FDA Start: 12-04-2020 Amputation, foot [place] 3GRM HEMOSTAT ABS FDA Start: 12-04-2020 Amputation, foot [place] 3GRM HEMOSTAT ABS FDA Start: 12-04-2020 Amputation, foot [place]ADE[place] 3GRM HEMOSTAT ABS FDA Start: 12-04-2020 Amputation, foot [place]ADE[place] 3GRM HEMOSTAT ABS FDA Start: 12-04-2020 Amputation, foot [place]ADE[place] 3GRM HEMOSTAT ABS FDA Start: 12-04-2020 Amputation, foot [place]ADE[place] 3GRM HEMOSTAT ABS FDA Start: 12-04-2020 Amputation, foot FDA Start: 12-04-2020 Amputation, foot FDA Start: 12-04-2020 Blood Sugar Diagnostic (Onetouch Ultra Test) strip Start: 07-11-2023 Blood Sugar Diagnostic (Onetouch Ultra Test) strip Start: 07-11-2023 Pen Needle, Diabetic 32 gauge x 5/32" needle Start: 05-23-2023 Blood Sugar Diagnostic (Onetouch Ultra Test) strip Start: 07-11-2023 Pen Needle, Diabetic 32 gauge x 5/32" needle Start: 05-23-2023 Blood Sugar Diagnostic (Onetouch Ultra Test) strip Start: 07-11-2023 Pen Needle, Diabetic 32 gauge x 5/32" needle Start: 05-23-2023 Blood Sugar Diagnostic (Onetouch Ultra Test) strip Start: 07-11-2023 Pen Needle, Diabetic 32 gauge x 5/32" needle Start: 05-23-2023 Blood Sugar Diagnostic (Onetouch Ultra Test) strip Start: 07-11-2023 Pen Needle, Diabetic 32 gauge x 5/32" needle Start: 05-23-2023 Goals Date Patient Goal Desired Activity /State Functional Status Date Assessment Result Facility 10-24-2024 Are you deaf, or do you have serious difficulty hearing No [facility] 10-24-2024 Are you blind, or do you have serious difficulty seeing, even when wearing glasses No [facility] 10-24-2024 Do you have serious difficulty walking or climbing stairs Yes [facility] 10-24-2024 Do you have difficul ty dressing or bathing Yes [facility] 10-24-2024 Because of a physica l, mental, or emotional condition, do you have difficulty doing errands alone such as visiting a physician's office or shopping Yes [facility] 10-16-2024 Functional status Unable to Assess;Post O p [facility] Work Phone: 10-16-2024 Functional status Bedrest [facility] Work Phone: 05-23-2023 Functional status Chair [facility] Work Phone: 12-03-2022 Functional status Ambulates [facility] Work Phone: Mental Status Date Assessment Result Facility 10-24-2024 Because of a physica l, mental, or emotional condition, do you have serious difficulty concentrating, remembering, or making decisions Yes [facility] 10-16-2024 Cognitive function Voice/Name [facility] Work Phone: 05-23-2023 Cognitive function Voice/Name [facility] Work Phone: 05-22-2023 Cognitive function Appropriate;C ooperativ e [facility] Work Phone: 12-03-2022 Cognitive function Voice/Name [facility] Work Phone: Clinical Notes 11-28-2022 to 12-11-2024 Note Date & Type Note Facility 12-11-2024 Progress note Note Date/Time December 11, 2024 10:48am [facility] [address] [place] [address] Progress Note - Wound Care 12/11/24 1046 MR#: [id number] Acct: [id number] Name: LANI ZARAGOZA Rep #:[id number] : 1955 69 From: Ramon Garcia DPM PCP: Dr. Bernabe Reese MD Status:RE G R Location: History of Present Illness Date of Service: 12/11/24 Chief Complaint: Right heel wound History of Wound: Patient has chronic wound to right heel in setting of diabeticneuropathy, poorly controlled diabetes, peripheral neuropathy, peripheral arterial disease, iron deficiency, chronic chronic anticoagulation. Patient denies constitutional symptoms. Patient ambulates in surgical shoe with heel offloading. 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 Patient has no other complaints. Objective Data Objective Data Vital Signs: Vital Signs Temp Pulse Resp BP O2 Del Method 97.5 F L 65 18 95/53 L Room Air 12/11/24 10:06 12/11/24 10:06 12/11/24 10:06 12/11/24 10:06 12/11/24 10:06 Oxygen Delivery Method Room Air Weight: 164.654 kg Body Mass Index (BMI) 55.2 Physical Exam Narrative Neurovascular status unchanged. Stable right plantar heel wound with intact external fixator. Wound demonstrates clean granular base postdebridement with no deep probing undermining or signs of infection acutely. Debridement Note Debridement Note Post-Debridement Measurements and Additional Note: Post-Debridement Measurements/Treatment - Nurse 1 - General Ulcer Assessment Start: 11/20/24 10:16 Freq: Status: Active Protocol: WC.LOWEXT Activity Type Activity Date Activity User E-sign Co-sign Detail Recorded Client Recorded Date Recorded By Document 11/20/24 10:17 KW [id number] 11/20/24 10:35 KW Document 11/27/24 09:35 KW [id number] 11/27/24 09:41 KW Document 12/04/24 10:12 KW [id number] 12/04/24 10:32 KW Document 12/11/24 10:06 KW [id number] 12/11/24 10:28 KW 11/20/24 11/27/24 12/04/24 10:17 09:35 10:12 - Today's Visit Information Type of service Follow-up Visit Follow-up Visit Follow-up Visit (Physician/PROGRAM COORDINATOR EXECUTIVE EDUCATION (Physician/PROGRAM COORDINATOR EXECUTIVE EDUCATION (Physician/PROGRAM COORDINATOR EXECUTIVE EDUCATION ) ) ) Arrival Mode Wheelchair Wheelchair Wheelchair Transfer Assistance Patient Identification Verified (Name & Yes Yes Yes ) Height and Weight Body Mass Index (BMI) 55.2 55.2 55.2 BMI Classification Obese Obese Obese Vital Signs Temperature (97.8 F-99.1 F) 96.7 F L 96.6 F L 96.5 F L Temperature Source Temporal Temporal Temporal Pulse Rate (60-100) 72 58 L 70 Pulse Location Monitor Monitor Monitor Respiratory Rate (12-18) 16 18 16 Respiratory rate source Observation Observation Observation Oxygen Delivery Method Room Air Room Air Blood Pressure (90/60-120/80) 110/68 121/72 H 141/70 H Blood Pressure Mean (mm Hg) 82 88 93 Source Monitor Monitor Monitor Position Sitting Sitting Sitting Blood Pressure Location Left Arm Left Arm Right Arm History Since Last Visit- (Skip if this is Patient's initial visit) Have you changed medications since your No No No last visit? Any new allergies or adverse reactions No No No Had a fall/change in ADL's that may No No No increase risk of falls Signs or symptoms of abuse and/or No No No neglect since last visit Have you been in the hospital since your No No No last visit? Has dressing in place as prescribed Yes Yes Yes Has compression in place as prescribed Yes N/A Yes Has offloadiing in place as prescribed Yes Yes Yes Experienced any changes in pain level or No No No management Left Footwear Regular Shoe Regular Shoe Regular Shoe Right Footwear No Footwear Other Footwear No Footwear (Comment) Pain Scale: 0-10 Numeric Is Patient Pain Free? Yes Yes Yes 12/11/24 10:06 - Today's Visit Information Type of service Follow-up Visit (Physician/PROGRAM COORDINATOR EXECUTIVE EDUCATION ) Arrival Mode Wheelchair Transfer Assistance Shira Lift Patient Identification Verified (Name & Yes ) Height and Weight Body Mass Index (BMI) 55.2 BMI Classification Obese Vital Signs Temperature (97.8 F-99.1 F) 97.5 F L Temperature Source Temporal Pulse Rate (60-100) 65 Pulse Location Monitor Respiratory Rate (12-18) 18 Respiratory rate source Observation Oxygen Delivery Method Room Air Blood Pressure (90/60-120/80) 95/53 L Blood Pressure Mean (mm Hg) 67 Source Monitor Position Sitting Blood Pressure Location Left Arm History Since Last Visit- (Skip if this is Patient's initial visit) Have you changed medications since your No last visit? Any new allergies or adverse reactions No Had a fall/change in ADL's that may No increase risk of falls Signs or symptoms of abuse and/or No neglect since last visit Have you been in the hospital since your No last visit? Has dressing in place as prescribed Yes Has compression in place as prescribed Yes Has offloadiing in place as prescribed Yes Experienced any changes in pain level or No management Left Footwear Total Contact Cast Right Footwear Regular Shoe Pain Scale: 0-10 Numeric Is Patient Pain Free? Yes - Nurse 1 - General Ulcer Measurement Start: 11/20/24 10:16 Freq: Status: Active Protocol: Activity Type Activity Date Activity User E-sign Co-sign Detail Recorded Client Recorded Date Recorded By Document 11/20/24 10:17 KW [id number] 11/20/24 10:35 KW Document 11/27/24 09:35 KW [id number] 11/27/24 09:41 KW Document 12/04/24 10:12 KW [id number] 12/04/24 10:32 KW Document 12/11/24 10:06 KW [id number] 12/11/24 10:28 KW 11/20/24 11/27/24 12/04/24 10:17 09:35 10:12 Wound Center Nurse 1 4.R heel medial -Combined with other wound No -Current Size (cm) - Length 3.5 2.5 3.5 -Current Size (cm) - Width 3 3.8 2 -Current Size (cm) - Depth 0.3 0.6 0.2 -Total Square Cm 10.5 9.50 7.0 -Date of Last Picture (Recall this 11/20/24 12/04/24 field) -Photo Taken Yes -Epithelialization Medium 34-66% -Tunneling No -Undermining/Tunneling No -Circular Undermining No -Exudate Amt Medium Medium -Exudate Type Serosanguineous Serosanguineous Serosanguineous -Wound Margin Distinct, Flat & Intact Distinct, Outline Outline Attached Attached -Granulation Amt Large (67-100%) Large (67-100%) Large (67-100%) -Granulation Quality Red Red Red -Slough/Fibrin Yes -Necrosis Amt Small (1-33%) -Necrotic Tissue Type Adherent Slough -Structure Exposed N/A -Texture (Lesvia-wound Skin Appearance) Assessed,Callus Assessed Assessed -Moisture (Lesvia-wound Skin Appearance) Assessed,Dry/ Assessed,Dry/ Assessed,Dry/ Scaly Scaly Scaly -Color (Lesvia-wound Skin Appearance) Assessed Assessed Assessed -Temperature (Lesvia-wound Skin No Abnormality No Abnormality No Abnormality Appearance) (Pt Warm) (Pt Warm) (Pt Warm) -Tenderness on Palpation (Lesvia-wound No No No Skin Appearance) -Ulcer Cleansing Soap and Water Soap and Water Soap and Water -Foul Odor after Cleansing No No No -Anesthetic Used 5% Lidocaine 5% Lidocaine 5% Lidocaine Gel Gel Gel Lower Limb Edema Present NA 12/11/24 10:06 Wound Center Nurse 1 4.R heel medial -Combined with other wound -Current Size (cm) - Length 2 -Current Size (cm) - Width 2.6 -Current Size (cm) - Depth 0.2 -Total Square Cm 5.2 -Date of Last Picture (Recall this 12/11/24 field) -Photo Taken -Epithelialization -Tunneling -Undermining/Tunneling -Circular Undermining -Exudate Amt Large -Exudate Type Serosanguineous -Wound Margin Distinct, Outline Attached -Granulation Amt Large (67-100%) -Granulation Quality Pale,[place] -Slough/Fibrin -Necrosis Amt Small (1-33%) -Necrotic Tissue Type Adherent Slough -Structure Exposed -Texture (Lesvia-wound Skin Appearance) Assessed -Moisture (Lesvia-wound Skin Appearance) Assessed -Color (Lesvia-wound Skin Appearance) Assessed -Temperature (Lesvia-wound Skin No Abnormality Appearance) (Pt Warm) -Tenderness on Palpation (Lesvia-wound No Skin Appearance) -Ulcer Cleansing Soap and Water -Foul Odor after Cleansing No -Anesthetic Used 5% Lidocaine Gel Lower Limb Edema Present WC - Nurse 2 - General Ulcer CM Notes Start: 11/20/24 10:16 Freq: Status: Active Protocol: Activity Type Activity Date Activity User E-sign Co-sign Detail Recorded Client Recorded Date Recorded By Document 11/20/24 10:47 [id number] 11/20/24 10:49 Document 11/27/24 10:10 [facility] [id number] 11/27/24 10:20 [facility] Document 12/04/24 10:36 [id number] 12/04/24 10:47 11/20/24 11/27/24 12/04/24 10:47 10:10 10:36 Wound Center Nurse 2 4.R heel medial -Time 10:48 10:17 10:46 -Correct Patient Yes Yes Yes -Correct Side, Site, Position Yes Yes Yes -Correct Procedure Yes Yes Yes -Procedure Performed Yes Yes Yes -Type of Procedure Debridement Debridement Debridement -Clinical Debridement Subcutaneous Muscle / Fascia Subcutaneous -Tissue Removed Subcutaneous Muscle,Fascia Subcutaneous -Post Debridement (cm) - Length 3.0 3.5 2.3 -Post Debridement (cm) - Width 3.5 3.3 3.1 -Post Debridement (cm) - Depth 0.3 0.3 0.2 -Total Square (Post) (cm) 10.50 11.55 7.13 -Area of Debridement (cm) - Length 3.0 3.5 2.3 -Area of Debridement (cm) - Width 3.5 3.3 3.1 -Total Square (Area) (cm) 10.50 11.55 7.13 -Tunneling No No No -Undermining/Tunneling No No No -Circular Undermining No No No -Wound/Ulcer Outcome Not Healed Not Healed Not Healed -Ulcer Cleansing Rinsed/ Rinsed/ Rinsed/ Irrigated with Irrigated with Irrigated with Saline Saline Saline -Foul Odor after Cleansing No No No -Bioengineered Tissue No Yes Yes -Type of Bioengineered Tissue Epicord Epifix Mesh -Expiration Date 02/18/29 03/20/29 -Product Lot Number [id number] -Percent Used 100 100 -Lot number of Saline Used [id number] -Bleeding Controlled with Pressure Pressure Pressure -Treatment Response Procedure Procedure Procedure Tolerated Well Tolerated Well Tolerated Well -Offloading Yes -Type of Offloading Other Total Contact Cast (TCC) - Right ($) -Other Type of Offloading external fixator -Debridement - Subq, 1st 20sq cm Yes No -Debridement - Muscle / Fascia, 1st No 20sq cm -Apply Skin Sub - 1st 25 sq cm - Feet 1 1 -Epicord Application 1-4 (per sq cm) 6 -Epifix Mesh Application 1-4 (per sq 11 cm) Pain Scale: 0-10 Numeric Is Patient Pain Free? Yes Yes Yes - Nurse 3 - General Ulcer D/C NN Start: 11/20/24 10:16 Freq: Status: Active Protocol: Activity Type Activity Date Activity User E-sign Co-sign Detail Recorded Client Recorded Date Recorded By Document 11/20/24 11:12 [facility] [id number] 11/20/24 11:12 [facility] Document 11/27/24 10:20 BM [id number] 11/27/24 10:21 BM Document 12/04/24 10:57 DS [id number] 12/04/24 11:53 DS 11/20/24 11/27/24 12/04/24 11:12 10:20 10:57 Wound Care Center Nurse 3 4.R heel medial -Ulcer Cleansing Rinsed/ Irrigated with Saline -Foul Odor after Cleansing No -Primary Dressing Applied AMD Dressing 4x4,Aquacel Extra -Other Dressing dakins, heel ABD epi mesh/wound hat., kerlix veil; TCC applied -Primary Dressing Covered/Secured with Dry Gauze & Dry Gauze & Secured with Roll Gauze, Roll Gauze, Tape Secured with Secured with Tape Tape -Other Covering EPICORD -AMD Dressing 4x4 1 -Aquacel Extra 1 Treatment Response Procedure Tolerated Well Pain Scale: 0-10 Numeric Is Patient Pain Free? Yes Yes Yes WC - Visit Discharge Discharge Condition Stable Stable Stable Ambulatory Status Wheelchair Wheelchair Wheelchair Transportation ecf [facility] Facility Type [facility] Facility Facility Assessment/Plan Assessment/Plan (1) Non-pressure chronic ulcer of other part of right foot with fat layer exposed: CODE(S): L97.512 - Non-pressure chronic ulcer of other part of right foot with fat layer exposed (2) Encounter for other orthopedic aftercare: CODE(S): Z47.89 - Encounter for other orthopedic aftercare PLAN: Plan Procedures Performed Today * Debridement of Posterior Right Heel Wound: * Sharp debridement performed to remove necrotic/devitalized tissue. * Wound bed prepared for graft placement. * Application of Biologic Graft: * 11 billing unit (4x4.5 cm) Epifix graft applied to the debrided posterior heel wound. * Graft secured per protocol. * Anesthesia: * Procedure performed under local anesthesia, without use of tourniquet. Assessment: * Chronic posterior right heel wound, diabetic and neuropathic etiology, post-debridement with graft application. * Four acute pin site wounds, status post external fixator removal, flushed and closed. * Diabetes mellitus with peripheral neuropathy ? complicating wound healing Plan: * Continue local wound care per protocol. * Monitor for signs of infection at all wound sites. * Follow up in 1 week for re-evaluation and possible dressing change. * Total contact cast applied for offloading * hemostasis obtained prior to graft and cast application. * Reinforce offloading measures and glucose control. * Patient education provided regarding wound care and signs of infection. 12/11/24 1048 <Electronically signed by Ramon Garcia DPM> Cosigner Signature (if applicable): CC: ~ Signed [facility] Work Phone: [phone] 551-621106-17-2025 Progress note Author Ramon Garcia [facility] Note Date/Time December 04, 2024 10:5 8am [facility] [address] [place] [address] Progress Note - Wound Care 12/04/24 1057 MR#: [id number] Acct: [id number] Name: LANI ZARAGOZA Rep #:[id number] : 1955 69 From: Ramon Garcia DPM PCP: Dr. Bernabe Reese MD Status:RE G RCR Location: History of Present Illness Date of Service: 12/04/24 Chief Complaint: Right heel wound History of Wound: Patient has chronic wound to right heel in setting of diabeticneuropathy, poorly controlled diabetes, peripheral neuropathy, peripheral arterial disease, iron deficiency, chronic chronic anticoagulation. Patient denies constitutional symptoms. Patient ambulates in surgical shoe with heel offloading. 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 Patient has no other complaints. Objective Data Objective Data Vital Signs: Vital Signs Temp Pulse Resp BP O2 Del Method 96.5 F L 70 16 141/70 H Room Air 12/04/24 10:12 12/04/24 10:12 12/04/24 10:12 12/04/24 10:12 11/27/24 09:35 Oxygen Delivery Method Room Air Weight: 164.654 kg Body Mass Index (BMI) 55.2 Physical Exam Narrative Neurovascular status unchanged. Stable right plantar heel wound with intact external fixator. Wound demonstrates clean granular base postdebridement with no deep probing undermining or signs of infection acutely. Debridement Note Debridement Note Post-Debridement Measurements and Additional Note: Post-Debridement Measurements/Treatment WC - Nurse 1 - General Ulcer Assessment Start: 11/20/24 10:16 Freq: Status: Active Protocol: BUDDY.YOUNG Activity Type Activity Date Activity User E-sign Co-sign Detail Recorded Client Recorded Date Recorded By Document 11/20/24 10:17 KW [id number] 11/20/24 10:35 KW Document 11/27/24 09:35 KW [id number] 11/27/24 09:41 KW Document 12/04/24 10:12 KW [id number] 12/04/24 10:32 KW 11/20/24 11/27/24 12/04/24 10:17 09:35 10:12 - Today's Visit Information Type of service Follow-up Visit Follow-up Visit Follow-up Visit (Physician/PROGRAM COORDINATOR EXECUTIVE EDUCATION (Physician/PROGRAM COORDINATOR EXECUTIVE EDUCATION (Physician/PROGRAM COORDINATOR EXECUTIVE EDUCATION ) ) ) Arrival Mode Wheelchair Wheelchair Wheelchair Patient Identification Verified (Name & Yes Yes Yes ) Height and Weight Body Mass Index (BMI) 55.2 55.2 55.2 BMI Classification Obese Obese Obese Vital Signs Temperature (97.8 F-99.1 F) 96.7 F L 96.6 F L 96.5 F L Temperature Source Temporal Temporal Temporal Pulse Rate (60-100) 72 58 L 70 Pulse Location Monitor Monitor Monitor Respiratory Rate (12-18) 16 18 16 Respiratory rate source Observation Observation Observation Oxygen Delivery Method Room Air Room Air Blood Pressure (90/60-120/80) 110/68 121/72 H 141/70 H Blood Pressure Mean (mm Hg) 82 88 93 Source Monitor Monitor Monitor Position Sitting Sitting Sitting Blood Pressure Location Left Arm Left Arm Right Arm History Since Last Visit- (Skip if this is Patient's initial visit) Have you changed medications since your No No No last visit? Any new allergies or adverse reactions No No No Had a fall/change in ADL's that may No No No increase risk of falls Signs or symptoms of abuse and/or No No No neglect since last visit Have you been in the hospital since your No No No last visit? Has dressing in place as prescribed Yes Yes Yes Has compression in place as prescribed Yes N/A Yes Has offloadiing in place as prescribed Yes Yes Yes Experienced any changes in pain level or No No No management Left Footwear Regular Shoe Regular Shoe Regular Shoe Right Footwear No Footwear Other Footwear No Footwear (Comment) Pain Scale: 0-10 Numeric Is Patient Pain Free? Yes Yes Yes - Nurse 1 - General Ulcer Measurement Start: 11/20/24 10:16 Freq: Status: Active Protocol: Activity Type Activity Date Activity User E-sign Co-sign Detail Recorded Client Recorded Date Recorded By Document 11/20/24 10:17 KW [id number] 11/20/24 10:35 KW Document 11/27/24 09:35 KW [id number] 11/27/24 09:41 KW Document 12/04/24 10:12 KW [id number] 12/04/24 10:32 KW 11/20/24 11/27/24 12/04/24 10:17 09:35 10:12 Wound Center Nurse 1 4.R heel medial -Combined with other wound No -Current Size (cm) - Length 3.5 2.5 3.5 -Current Size (cm) - Width 3 3.8 2 -Current Size (cm) - Depth 0.3 0.6 0.2 -Total Square Cm 10.5 9.50 7.0 -Date of Last Picture (Recall this 11/20/24 12/04/24 field) -Photo Taken Yes -Epithelialization Medium 34-66% -Tunneling No -Undermining/Tunneling No -Circular Undermining No -Exudate Amt Medium Medium -Exudate Type Serosanguineous Serosanguineous Serosanguineous -Wound Margin Distinct, Flat & Intact Distinct, Outline Outline Attached Attached -Granulation Amt Large (67-100%) Large (67-100%) Large (67-100%) -Granulation Quality Red Red Red -Slough/Fibrin Yes -Necrosis Amt Small (1-33%) -Necrotic Tissue Type Adherent Slough -Structure Exposed N/A -Texture (Lesvia-wound Skin Appearance) Assessed,Callus Assessed Assessed -Moisture (Lesvia-wound Skin Appearance) Assessed,Dry/ Assessed,Dry/ Assessed,Dry/ Scaly Scaly Scaly -Color (Lesvia-wound Skin Appearance) Assessed Assessed Assessed -Temperature (Lesvia-wound Skin No Abnormality No Abnormality No Abnormality Appearance) (Pt Warm) (Pt Warm) (Pt Warm) -Tenderness on Palpation (Lesvia-wound No No No Skin Appearance) -Ulcer Cleansing Soap and Water Soap and Water Soap and Water -Foul Odor after Cleansing No No No -Anesthetic Used 5% Lidocaine 5% Lidocaine 5% Lidocaine Gel Gel Gel Lower Limb Edema Present NA WC - Nurse 2 - General Ulcer CM Notes Start: 11/20/24 10:16 Freq: Status: Active Protocol: Activity Type Activity Date Activity User E-sign Co-sign Detail Recorded Client Recorded Date Recorded By Document 11/20/24 10:47 [id number] 11/20/24 10:49 Document 11/27/24 10:10 [facility] [id number] 11/27/24 10:20 [facility] Document 12/04/24 10:36 [id number] 12/04/24 10:47 11/20/24 11/27/24 12/04/24 10:47 10:10 10:36 Wound Center Nurse 2 4.R heel medial -Time 10:48 10:17 10:46 -Correct Patient Yes Yes Yes -Correct Side, Site, Position Yes Yes Yes -Correct Procedure Yes Yes Yes -Procedure Performed Yes Yes Yes -Type of Procedure Debridement Debridement Debridement -Clinical Debridement Subcutaneous Muscle / Fascia Subcutaneous -Tissue Removed Subcutaneous Muscle,Fascia Subcutaneous -Post Debridement (cm) - Length 3.0 3.5 2.3 -Post Debridement (cm) - Width 3.5 3.3 3.1 -Post Debridement (cm) - Depth 0.3 0.3 0.2 -Total Square (Post) (cm) 10.50 11.55 7.13 -Area of Debridement (cm) - Length 3.0 3.5 2.3 -Area of Debridement (cm) - Width 3.5 3.3 3.1 -Total Square (Area) (cm) 10.50 11.55 7.13 -Tunneling No No No -Undermining/Tunneling No No No -Circular Undermining No No No -Wound/Ulcer Outcome Not Healed Not Healed Not Healed -Ulcer Cleansing Rinsed/ Rinsed/ Rinsed/ Irrigated with Irrigated with Irrigated with Saline Saline Saline -Foul Odor after Cleansing No No No -Bioengineered Tissue No Yes Yes -Type of Bioengineered Tissue Epicord Epifix Mesh -Expiration Date 02/18/29 03/20/29 -Product Lot Number [id number] -Percent Used 100 100 -Lot number of Saline Used [id number] -Bleeding Controlled with Pressure Pressure Pressure -Treatment Response Procedure Procedure Procedure Tolerated Well Tolerated Well Tolerated Well -Offloading Yes -Type of Offloading Other Total Contact Cast (TCC) - Right ($) -Other Type of Offloading external fixator -Debridement - Subq, 1st 20sq cm Yes No -Debridement - Muscle / Fascia, 1st No 20sq cm -Apply Skin Sub - 1st 25 sq cm - Feet 1 1 -Epicord Application 1-4 (per sq cm) 6 -Epifix Mesh Application 1-4 (per sq 11 cm) Pain Scale: 0-10 Numeric Is Patient Pain Free? Yes Yes Yes - Nurse 3 - General Ulcer D/C NN Start: 11/20/24 10:16 Freq: Status: Active Protocol: Activity Type Activity Date Activity User E-sign Co-sign Detail Recorded Client Recorded Date Recorded By Document 11/20/24 11:12 [facility] [id number] 11/20/24 11:12 [facility] Document 11/27/24 10:20 [facility] [id number] 11/27/24 10:21 [facility] 11/20/24 11/27/24 11:12 10:20 Wound Care Center Nurse 3 4.R heel medial -Ulcer Cleansing Rinsed/ Irrigated with Saline -Foul Odor after Cleansing No -Other Dressing dakins, heel ABD hat., kerlix -Primary Dressing Covered/Secured with Dry Gauze & Dry Gauze & Roll Gauze, Roll Gauze, Secured with Secured with Tape Tape -Other Covering EPICORD Treatment Response Procedure Tolerated Well Pain Scale: 0-10 Numeric Is Patient Pain Free? Yes Yes WC - Visit Discharge Discharge Condition Stable Stable Ambulatory Status Wheelchair Wheelchair Transportation ecf F Facility Type Parts Person Care [facility] Facility Assessment/Plan Assessment/Plan (1) Non-pressure chronic ulcer of other part of right foot with fat layer exposed: CODE(S): L97.512 - Non-pressure chronic ulcer of other part of right foot with fat layer exposed (2) Encounter for other orthopedic aftercare: CODE(S): Z47.89 - Encounter for other orthopedic aftercare PLAN: Plan Procedures Performed Today: * Removal of External Fixator: * Device removed from right lower extremity without complications. * Pin Site Wound Management: * 2 wounds at distal anterior tibia and 2 at medial and lateral calcaneus identified post-fixator removal. * All pin sites were flushed and closed using 2-0 retention sutures. * Debridement of Posterior Right Heel Wound: * Sharp debridement performed to remove necrotic/devitalized tissue. * Wound bed prepared for graft placement. * Application of Biologic Graft: * 11 billing unit (4x4.5 cm) Epifix graft applied to the debrided posterior heel wound. * Graft secured per protocol. * Anesthesia: * Procedure performed under local anesthesia, without use of tourniquet. Assessment: * Chronic posterior right heel wound, diabetic and neuropathic etiology, post- debridement with graft application. * Four acute pin site wounds, status post external fixator removal, flushed and closed. * Diabetes mellitus with peripheral neuropathy ? complicating wound healing. Plan: * Continue local wound care per protocol. * Monitor for signs of infection at all wound sites. * Follow up in 1 week for re-evaluation and possible dressing change. * Reinforce offloading measures and glucose control. * Patient education provided regarding wound care and signs of infection. 12/04/24 1058 <Electronically signed by Ramon Garcia DPM> Cosigner Signature (if applicable): CC: ~ Signed [facility] Work Phone: 1(240) [phone] Radiology Diagnostic study note [facility] [address] [place] [address] [id number] Brain/Head without Contrast MR#: [id number] Acct: [id number] Name: LANI ZARAGOZA Rep #: [id number] : 1955 M 69 From: Francis Crawford MD PCP: Dr. Bernabe Reese MD Status: RE G CLI Study:Brain/Head without Contrast Date of Exa m: 11/29/24 Exam# [id number] Ordering Dr: Chris Salgado MD PROCEDURE: BRAIN/HEAD WITHOUT CONTRAST 11/29/2024 REASON FOR EXAM: POST L TEMPORAL HEMORRHAGE TECHNIQUE: Head CT without intravenous contrast. Coronal and Sagittal reconstruction serieswere provided. One or more dose reduction techniques were used (e.g., Automated exposure control, adjustment of the mA and/or kV according to patient size, use of iterative reconstruction technique. RADIATION DOSE SUMMARY: CTDlvol: 44.99 mGy DLP: 897 mGycm COMPARISON: CT scan on 10/16/2024. FINDINGS: Complete resolution of the previously described left temporal acute hemorrhagic products. Mildly decreased associated edema which remains moderate. Complete resolution of midline shift. Normal size of the ventricles and extra-axial spaces for the patient's age. Normal basal ganglia and thalami. Normal brainstem. Normal cerebellum. There is no demonstrated extra-axial, intraparenchymal, or intraventricular hemorrhage. Normal calvarium. There is no demonstrated fracture. Normal soft tissue structures. Normal visualized paranasal sinuses. CT/Brain/Head without Contrast IMPRESSION: Complete resolution of the previously described left temporal acute hemorrhagic products. Mildly decreased associated edema which remains moderate. Complete resolution of midline shift. Reading Location: [place] [address] CC: Dr. Bernabe Reese MD; Kelli Salgado MD ~ Under Baster: Signed [facility]06-10-2025 Progress note Author Ramon Garcia [facility] Note Date/Time November 27, 2024 10:1 8am [facility] [address] [place] [id number] Progress Note - Wound Care 11/27/24 1017 MR#: [id number] Acct: [id number] Name: LANI ZARAGOZA Rep #:[id number] : 1955 69 From: Ramon Garcia DPM PCP: Dr. Bernabe Reese MD Status:RE G R Location: History of Present Illness Date of Service: 11/27/24 Chief Complaint: Right heel wound History of Wound: Patient has chronic wound to right heel in setting of diabeticneuropathy, poorly controlled diabetes, peripheral neuropathy, peripheral arterial disease, iron deficiency, chronic chronic anticoagulation. Patient denies constitutional symptoms. Patient ambulates in surgical shoe with heel offloading. 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 Patient has no other complaints. Objective Data Objective Data Vital Signs: Vital Signs Temp Pulse Resp BP O2 Del Method 96.6 F L 58 L 18 121/72 H Room Air 11/27/24 09:35 11/27/24 09:35 11/27/24 09:35 11/27/24 09:35 11/27/24 09:35 Oxygen Delivery Method Room Air Weight: 164.654 kg Body Mass Index (BMI) 55.2 Physical Exam Narrative Neurovascular status unchanged. Stable right plantar heel wound with intact external fixator. Wound demonstrates clean granular base postdebridement with no deep probing undermining or signs of infection acutely. Debridement Note Debridement Note Post-Debridement Measurements and Additional Note: Post-Debridement Measurements/Treatment WC - Nurse 1 - General Ulcer Assessment Start: 11/20/24 10:16 Freq: Status: Active Protocol: WC.LOWEXT Activity Type Activity Date Activity User E-sign Co-sign Detail Recorded Client Recorded Date Recorded By Document 11/20/24 10:17 KW [id number] 11/20/24 10:35 KW Document 11/27/24 09:35 KW [id number] 11/27/24 09:41 KW 11/20/24 11/27/24 10:17 09:35 - Today's Visit Information Type of service Follow-up Visit Follow-up Visit (Physician/PROGRAM COORDINATOR EXECUTIVE EDUCATION (Physician/PROGRAM COORDINATOR EXECUTIVE EDUCATION ) ) Arrival Mode Wheelchair Wheelchair Patient Identification Verified (Name & Yes Yes ) Height and Weight Body Mass Index (BMI) 55.2 55.2 BMI Classification Obese Obese Vital Signs Temperature (97.8 F-99.1 F) 96.7 F L 96.6 F L Temperature Source Temporal Temporal Pulse Rate (60-100) 72 58 L Pulse Location Monitor Monitor Respiratory Rate (12-18) 16 18 Respiratory rate source Observation Observation Oxygen Delivery Method Room Air Room Air Blood Pressure (90/60-120/80) 110/68 121/72 H Blood Pressure Mean (mm Hg) 82 88 Source Monitor Monitor Position Sitting Sitting Blood Pressure Location Left Arm Left Arm History Since Last Visit- (Skip if this is Patient's initial visit) Have you changed medications since your No No last visit? Any new allergies or adverse reactions No No Had a fall/change in ADL's that may No No increase risk of falls Signs or symptoms of abuse and/or No No neglect since last visit Have you been in the hospital since your No No last visit? Has dressing in place as prescribed Yes Yes Has compression in place as prescribed Yes N/A Has offloadiing in place as prescribed Yes Yes Experienced any changes in pain level or No No management Left Footwear Regular Shoe Regular Shoe Right Footwear No Footwear Other Footwear (Comment) Pain Scale: 0-10 Numeric Is Patient Pain Free? Yes Yes WC - Nurse 1 - General Ulcer Measurement Start: 11/20/24 10:16 Freq: Status: Active Protocol: Activity Type Activity Date Activity User E-sign Co-sign Detail Recorded Client Recorded Date Recorded By Document 11/20/24 10:17 KW [id number] 11/20/24 10:35 KW Document 11/27/24 09:35 KW [id number] 11/27/24 09:41 KW 11/20/24 11/27/24 10:17 09:35 Wound Center Nurse 1 4.R heel medial -Combined with other wound No -Current Size (cm) - Length 3.5 2.5 -Current Size (cm) - Width 3 3.8 -Current Size (cm) - Depth 0.3 0.6 -Total Square Cm 10.5 9.50 -Date of Last Picture (Recall this 11/20/24 field) -Photo Taken Yes -Epithelialization Medium 34-66% -Tunneling No -Undermining/Tunneling No -Circular Undermining No -Exudate Amt Medium -Exudate Type Serosanguineous Serosanguineous -Wound Margin Distinct, Flat & Intact Outline Attached -Granulation Amt Large (67-100%) Large (67-100%) -Granulation Quality Red Red -Slough/Fibrin Yes -Necrosis Amt Small (1-33%) -Necrotic Tissue Type Adherent Slough -Structure Exposed N/A -Texture (Lesvia-wound Skin Appearance) Assessed,Callus Assessed -Moisture (Lesvia-wound Skin Appearance) Assessed,Dry/ Assessed,Dry/ Scaly Scaly -Color (Lesvia-wound Skin Appearance) Assessed Assessed -Temperature (Lesvia-wound Skin No Abnormality No Abnormality Appearance) (Pt Warm) (Pt Warm) -Tenderness on Palpation (Lesvia-wound No No Skin Appearance) -Ulcer Cleansing Soap and Water Soap and Water -Foul Odor after Cleansing No No -Anesthetic Used 5% Lidocaine 5% Lidocaine Gel Gel Lower Limb Edema Present NA - Nurse 2 - General Ulcer CM Notes Start: 11/20/24 10:16 Freq: Status: Active Protocol: Activity Type Activity Date Activity User E-sign Co-sign Detail Recorded Client Recorded Date Recorded By Document 11/20/24 10:47 [id number] 11/20/24 10:49 11/20/24 10:47 Wound Center Nurse 2 4.R heel medial -Time 10:48 -Correct Patient Yes -Correct Side, Site, Position Yes -Correct Procedure Yes -Procedure Performed Yes -Type of Procedure Debridement -Clinical Debridement Subcutaneous -Tissue Removed Subcutaneous -Post Debridement (cm) - Length 3.0 -Post Debridement (cm) - Width 3.5 -Post Debridement (cm) - Depth 0.3 -Total Square (Post) (cm) 10.50 -Area of Debridement (cm) - Length 3.0 -Area of Debridement (cm) - Width 3.5 -Total Square (Area) (cm) 10.50 -Tunneling No -Undermining/Tunneling No -Circular Undermining No -Wound/Ulcer Outcome Not Healed -Ulcer Cleansing Rinsed/ Irrigated with Saline -Foul Odor after Cleansing No -Bioengineered Tissue No -Bleeding Controlled with Pressure -Treatment Response Procedure Tolerated Well -Type of Offloading Other -Other Type of Offloading external fixator -Debridement - Subq, 1st 20sq cm Yes Pain Scale: 0-10 Numeric Is Patient Pain Free? Yes - Nurse 3 - General Ulcer D/C NN Start: 11/20/24 10:16 Freq: Status: Active Protocol: Activity Type Activity Date Activity User E-sign Co-sign Detail Recorded Client Recorded Date Recorded By Document 11/20/24 11:12 [facility] [id number] 11/20/24 11:12 [facility] 11/20/24 11:12 Wound Care Center Nurse 3 4.R heel medial -Ulcer Cleansing Rinsed/ Irrigated with Saline -Foul Odor after Cleansing No -Other Dressing dakins, heel hat., kerlix -Primary Dressing Covered/Secured with Dry Gauze & Roll Gauze, Secured with Tape Treatment Response Procedure Tolerated Well Pain Scale: 0-10 Numeric Is Patient Pain Free? Yes - Visit Discharge Discharge Condition Stable Ambulatory Status Wheelchair Transportation ecf Facility Type Parts Person Care Facility Assessment/Plan Assessment/Plan (1) Acute osteomyelitis of right calcaneus: CODE(S): M86.171 - Other acute osteomyelitis, right ankle and foot PLAN: Exam performed. As mentioned previously in subjective patient suffered stroke. Only deficit is some issues with short-term memory. Patient's wound is noted to be improving today. Patient receiving IV antibiotics via PICC line per infectious disease. Today right heel wound was excisionally debrided down to including level of muscle using a 5 mm dermal curette with incident without incident. All nonviable tissue was removed. Patient tolerated procedure well. Hemostasis obtained with light compression. Pre and postdebridement measurements document nursing notes. Today a 6 billing unit epicord graft was applied to the right plantar heel, entire graft use, no waste. stabilized with overlying adaptic, steristrips, DSDand compression Patient will continue nonweightbearing to right lower extremity with offloading via delta frame with heel offloading U built into it. Follow-up weekly. Initial plan was for wound vac, but due to eliquis and bleeding with debridementI feel he would be a poor candidate (2) Non-pressure chronic ulcer of other part of right foot with necrosis of muscle: CODE(S): L97.513 - Non-pressure chronic ulcer of other part of right foot with necrosis of muscle 11/27/24 1018 <Electronically signed by Ramon Garcia DPM> Cosigner Signature (if applicable): CC: ~ Signed [facility] Work Phone: 1(832) 645-718906-03-2025 Progress note Author Ramon Garcia [facility] Note Date/Time November 20, 2024 10:[address] [facility] [address] [place] [address] Progress Note - Wound Care 11/20/24 1049 MR#: [id number] Acct: [id number] Name: LANI ZARAGOZA Rep #:[id number] : 1955 69 From: Ramon Garcia DPM PCP: Dr. Bernabe Reese MD Status:RE G RCR Location: History of Present Illness Date of Service: 11/20/24 Chief Complaint: Right heel wound History of Wound: Patient has chronic wound to right heel in setting of diabeticneuropathy, poorly controlled diabetes, peripheral neuropathy, peripheral arterial disease, iron deficiency, chronic chronic anticoagulation. Patient denies constitutional symptoms. Patient ambulates in surgical shoe with heel offloading. 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 Patient has no other complaints. Objective Data Objective Data Vital Signs: Vital Signs Temp Pulse Resp BP O2 Del Method 96.7 F L 72 16 110/68 Room Air 11/20/24 10:17 11/20/24 10:17 11/20/24 10:17 11/20/24 10:17 11/20/24 10:17 Oxygen Delivery Method Room Air Weight: 164.654 kg Body Mass Index (BMI) 55.2 Physical Exam Narrative Neurovascular status unchanged. Stable right plantar heel wound with intact external fixator. Wound demonstrates clean granular base postdebridement with no deep probing undermining or signs of infection acutely. Debridement Note Debridement Note Post-Debridement Measurements and Additional Note: Post-Debridement Measurements/Treatment - Nurse 1 - General Ulcer Assessment Start: 11/20/24 10:16 Freq: Status: Active Protocol: MARGY Activity Type Activity Date Activity User E-sign Co-sign Detail Recorded Client Recorded Date Recorded By Document 11/20/24 10:17 KW [id number] 11/20/24 10:35 KW 11/20/24 10:17 - Today's Visit Information Type of service Follow-up Visit (Physician/PROGRAM COORDINATOR EXECUTIVE EDUCATION ) Arrival Mode Wheelchair Patient Identification Verified (Name & Yes ) Height and Weight Body Mass Index (BMI) 55.2 BMI Classification Obese Vital Signs Temperature (97.8 F-99.1 F) 96.7 F L Temperature Source Temporal Pulse Rate (60-100) 72 Pulse Location Monitor Respiratory Rate (12-18) 16 Respiratory rate source Observation Oxygen Delivery Method Room Air Blood Pressure (90/60-120/80) 110/68 Blood Pressure Mean (mm Hg) 82 Source Monitor Position Sitting Blood Pressure Location Left Arm History Since Last Visit- (Skip if this is Patient's initial visit) Have you changed medications since your No last visit? Any new allergies or adverse reactions No Had a fall/change in ADL's that may No increase risk of falls Signs or symptoms of abuse and/or No neglect since last visit Have you been in the hospital since your No last visit? Has dressing in place as prescribed Yes Has compression in place as prescribed Yes Has offloadiing in place as prescribed Yes Experienced any changes in pain level or No management Left Footwear Regular Shoe Right Footwear No Footwear Pain Scale: 0-10 Numeric Is Patient Pain Free? Yes WC - Nurse 1 - General Ulcer Measurement Start: 11/20/24 10:16 Freq: Status: Active Protocol: Activity Type Activity Date Activity User E-sign Co-sign Detail Recorded Client Recorded Date Recorded By Document 11/20/24 10:17 SIENNA [id number] 11/20/24 10:35 11/20/24 10:17 Wound Center Nurse 1 4.R heel medial -Current Size (cm) - Length 3.5 -Current Size (cm) - Width 3 -Current Size (cm) - Depth 0.3 -Total Square Cm 10.5 -Date of Last Picture (Recall this 11/20/24 field) -Exudate Amt Medium -Exudate Type Serosanguineous -Wound Margin Distinct, Outline Attached -Granulation Amt Large (67-100%) -Granulation Quality Red -Texture (Lesvia-wound Skin Appearance) Assessed,Callus -Moisture (Lesvia-wound Skin Appearance) Assessed,Dry/ Scaly -Color (Lesvia-wound Skin Appearance) Assessed -Temperature (Lesvia-wound Skin No Abnormality Appearance) (Pt Warm) -Tenderness on Palpation (Lesvia-wound No Skin Appearance) -Ulcer Cleansing Soap and Water -Foul Odor after Cleansing No -Anesthetic Used 5% Lidocaine Gel BUDDY - Nurse 2 - General Ulcer CM Notes Start: 11/20/24 10:16 Freq: Status: Active Protocol: Activity Type Activity Date Activity User E-sign Co-sign Detail Recorded Client Recorded Date Recorded By Document 11/20/24 10:47 ÁNGEL [id number] 11/20/24 10:49 11/20/24 10:47 Wound Center Nurse 2 -Time 10:48 -Correct Patient Yes -Correct Side, Site, Position Yes -Correct Procedure Yes -Procedure Performed Yes -Type of Procedure Debridement -Clinical Debridement Subcutaneous -Tissue Removed Subcutaneous -Post Debridement (cm) - Length 3.0 -Post Debridement (cm) - Width 3.5 -Post Debridement (cm) - Depth 0.3 -Total Square (Post) (cm) 10.50 -Area of Debridement (cm) - Length 3.0 -Area of Debridement (cm) - Width 3.5 -Total Square (Area) (cm) 10.50 -Tunneling No -Undermining/Tunneling No -Circular Undermining No -Wound/Ulcer Outcome Not Healed -Ulcer Cleansing Rinsed/ Irrigated with Saline -Foul Odor after Cleansing No -Bioengineered Tissue No -Bleeding Controlled with Pressure -Treatment Response Procedure Tolerated Well -Type of Offloading Other -Other Type of Offloading external fixator -Debridement - Subq, 1st 20sq cm Yes Pain Scale: 0-10 Numeric Is Patient Pain Free? Yes Assessment/Plan Assessment/Plan (1) Acute osteomyelitis of right calcaneus: CODE(S): M86.171 - Other acute osteomyelitis, right ankle and foot PLAN: Exam performed. As mentioned previously in subjective patient suffered stroke. Only deficit is some issues with short-term memory. Patient's wound is noted to be improving today. Patient receiving IV antibiotics via PICC line per infectious disease. Today right heel wound was excisionally debrided down to including level of muscle using a 5 mm dermal curette with incident without incident. All nonviable tissue was removed. Patient tolerated procedure well. Hemostasis obtained with light compression. Pre and postdebridement measurements document nursing notes. Will plan for Dakin's wet-to-dry dressing to the wound site. Plan for Betadine to pin sites. Patient will continue nonweightbearing to right lower extremity with offloading via delta frame with heel offloading U built into it. Follow-up weekly. Initial plan was for wound vac, but due to eliquis and bleeding with debridementI feel he would be a poor candidate (2) Non-pressure chronic ulcer of other part of right foot with necrosis of muscle: CODE(S): L97.513 - Non-pressure chronic ulcer of other part of right foot with necrosis of muscle 11/20/24 1050 <Electronically signed by Ramon Garcia DPM> Cosigner Signature (if applicable): CC: ~ Signed [facility] Work Phone: 1(698) 192-891505-27-2025 Progress note Author Ramon Garcia [facility] Note Date/Time November 13, 2024 11:12 am [facility] [address] [place] [address] Progress Note - Wound Care 11/13/24 1104 MR#: [id number] Acct: [id number] Name: LANI ZARAGOZA Rep #:[id number] : 1955 69 From: Ramon Garcia DPM PCP: Dr. Bernabe Reese MD Status:RE G RCR Location: History of Present Illness Date of Service: 11/13/24 Chief Complaint: Right heel wound History of Wound: Patient has chronic wound to right heel in setting of diabeticneuropathy, poorly controlled diabetes, peripheral neuropathy, peripheral arterial disease, iron deficiency, chronic chronic anticoagulation. Patient denies constitutional symptoms. Patient ambulates in surgical shoe with heel offloading. 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 Patient has no other complaints. Objective Data Objective Data Vital Signs: Vital Signs Temp Pulse Resp BP O2 Del Method 96.2 F L 69 18 127/67 H Room Air 11/13/24 10:23 11/13/24 10:23 11/13/24 10:23 11/13/24 10:23 11/13/24 10:23 Oxygen Delivery Method Room Air Weight: 164.654 kg Body Mass Index (BMI) 55.2 Physical Exam Narrative Neurovascular status unchanged. Stable right plantar heel wound with intact external fixator. Wound demonstrates clean granular base postdebridement with no deep probing undermining or signs of infection acutely. Debridement Note Debridement Note Post-Debridement Measurements and Additional Note: Post-Debridement Measurements/Treatment - Nurse 1 - General Ulcer Assessment Start: 11/06/24 10:49 Freq: Status: Active Protocol: WC.LOWEXT Activity Type Activity Date Activity User E-sign Co-sign Detail Recorded Client Recorded Date Recorded By Document 11/06/24 11:09 KW [id number] 11/06/24 11:11 KW Document 11/13/24 10:23 KW [id number] 11/13/24 10:35 KW 11/06/24 11/13/24 11:09 10:23 - Today's Visit Information Type of service Follow-up Visit Follow-up Visit (Physician/PROGRAM COORDINATOR EXECUTIVE EDUCATION (Physician/PROGRAM COORDINATOR EXECUTIVE EDUCATION ) ) Arrival Mode Walker Wheelchair Patient Identification Verified (Name & Yes Yes ) Height and Weight Body Mass Index (BMI) 55.2 55.2 BMI Classification Obese Obese Vital Signs Temperature (97.8 F-99.1 F) 97.0 F L 96.2 F L Temperature Source Temporal Temporal Pulse Rate (60-100) 81 69 Pulse Location Monitor Monitor Respiratory Rate (12-18) 18 18 Respiratory rate source Observation Observation Oxygen Delivery Method Room Air Room Air Blood Pressure (90/60-120/80) 137/72 H 127/67 H Blood Pressure Mean (mm Hg) 93 87 Source Monitor Monitor Position Sitting Sitting Blood Pressure Location Left Arm Left Arm History Since Last Visit- (Skip if this is Patient's initial visit) Have you changed medications since your No No last visit? Any new allergies or adverse reactions No No Had a fall/change in ADL's that may No No increase risk of falls Signs or symptoms of abuse and/or No No neglect since last visit Have you been in the hospital since your Yes No last visit? Has dressing in place as prescribed Yes Yes Has compression in place as prescribed N/A N/A Has offloadiing in place as prescribed Yes Yes Experienced any changes in pain level or No No management Left Footwear No Footwear Regular Shoe Right Footwear No Footwear No Footwear Pain Scale: 0-10 Numeric Is Patient Pain Free? Yes Yes WC - Nurse 1 - General Ulcer Measurement Start: 11/06/24 10:49 Freq: Status: Active Protocol: Activity Type Activity Date Activity User E-sign Co-sign Detail Recorded Client Recorded Date Recorded By Document 11/06/24 11:09 KW [id number] 11/06/24 11:11 KW Document 11/13/24 10:23 KW [id number] 11/13/24 10:35 KW 11/06/24 11/13/24 11:09 10:23 Wound Center Nurse 1 4.R heel medial -Current Size (cm) - Length 0.1 0.1 -Current Size (cm) - Width 0.1 0.1 -Current Size (cm) - Depth 0.1 0 -Total Square Cm 0.01 0.01 -Date of Last Picture (Recall this 11/06/24 field) -Exudate Amt Large -Exudate Type Serosanguineous -Wound Margin Distinct, Outline Attached -Granulation Amt Large (67-100%) -Granulation Quality Red -Necrosis Amt Medium (34-66%) -Necrotic Tissue Type Adherent Slough -Texture (Lesvia-wound Skin Appearance) Assessed Assessed -Moisture (Lesvia-wound Skin Appearance) Assessed,Dry/ Assessed Scaly -Color (Lesvia-wound Skin Appearance) Assessed Assessed -Temperature (Lesvia-wound Skin No Abnormality No Abnormality Appearance) (Pt Warm) (Pt Warm) -Tenderness on Palpation (Lesvia-wound No No Skin Appearance) -Ulcer Cleansing Soap and Water Soap and Water -Foul Odor after Cleansing No No -Anesthetic Used 5% Lidocaine Gel -Wound Comment(s) not measured not measured in during nurse [address] Mike in room WC - Nurse 2 - General Ulcer CM Notes Start: 11/06/24 10:49 Freq: Status: Active Protocol: Activity Type Activity Date Activity User E-sign Co-sign Detail Recorded Client Recorded Date Recorded By Document 11/06/24 10:53 [id number] 11/06/24 10:54 Document 11/13/24 11:03 [id number] 11/13/24 11:04 11/06/24 11/13/24 10:53 11:03 Wound Center Nurse 2 4.R heel medial -Time 10:53 11:03 -Correct Patient Yes Yes -Correct Side, Site, Position Yes Yes -Correct Procedure Yes Yes -Procedure Performed Yes Yes -Type of Procedure Debridement Debridement -Clinical Debridement Muscle / Fascia Muscle / Fascia -Tissue Removed Muscle Muscle -Post Debridement (cm) - Length 4.2 3.4 -Post Debridement (cm) - Width 5.4 4.8 -Post Debridement (cm) - Depth 1.8 0.2 -Total Square (Post) (cm) 22.68 16.32 -Area of Debridement (cm) - Length 4.2 3.4 -Area of Debridement (cm) - Width 5.4 4.8 -Total Square (Area) (cm) 22.68 16.32 -Tunneling No No -Undermining/Tunneling No No -Circular Undermining No No -Wound/Ulcer Outcome Not Healed Not Healed -Ulcer Cleansing Rinsed/ Rinsed/ Irrigated with Irrigated with Saline Saline -Foul Odor after Cleansing No No -Bioengineered Tissue No No -Bleeding Controlled with Pressure Pressure, Surgifoam 3 1/8 x 5 (lg) -Surgifoam (3 1/8 x 5) Large 2 -Treatment Response Procedure Procedure Tolerated Well Tolerated Well -Offloading No Yes -Type of Offloading Other -Other Type of Offloading external fixator -Assistive Device(s) Wheelchair -Debridement - Muscle / Fascia, 1st Yes Yes 20sq cm -Debridement, Muscle/Fascia, ea addt'l 1 20sq cm or part thereof Pain Scale: 0-10 Numeric Is Patient Pain Free? Yes Yes WC - Nurse 3 - General Ulcer D/C NN Start: 11/06/24 10:49 Freq: Status: Active Protocol: Activity Type Activity Date Activity User E-sign Co-sign Detail Recorded Client Recorded Date Recorded By Document 11/06/24 11:11 KW [id number] 11/06/24 11:12 KW 11/06/24 11:11 Wound Care Center Nurse 3 4.R heel medial -Other Dressing dakins moistened gauze -Primary Dressing Covered/Secured with Dry Gauze & Roll Gauze, Secured with Tape -Wound Comment(s) pt has external fixature in place Pain Scale: 0-10 Numeric Is Patient Pain Free? Yes WC - Visit Discharge Discharge Condition Stable Ambulatory Status Wheelchair Medication Reconcilliation completed & No provided to patient/care provider Clinical Summary of Care Provided Yes Assessment/Plan Assessment/Plan (1) Acute osteomyelitis of right calcaneus: CODE(S): M86.171 - Other acute osteomyelitis, right ankle and foot PLAN: Exam performed. As mentioned previously in subjective patient suffered stroke. Only deficit is some issues with short-term memory. Patient's wound is noted to be improving today. Patient receiving IV antibiotics via PICC line per infectious disease. Today right heel wound was excisionally debrided down to including level of muscle using a 5 mm dermal curette with incident without incident. All nonviable tissue was removed. Patient tolerated procedure well. Hemostasis obtained with light compression. Pre and postdebridement measurements document nursing notes. Will plan for Dakin's wet-to-dry dressing to the wound site. Plan for Betadine to pin sites. Patient will continue nonweightbearing to right lower extremity with offloading via delta frame with heel offloading U built into it. Follow-up weekly. Initial plan was for wound vac, but due to eliquis and bleeding with debridementI feel he would be a poor candidate (2) Non-pressure chronic ulcer of other part of right foot with necrosis of muscle: CODE(S): L97.513 - Non-pressure chronic ulcer of other part of right foot with necrosis of muscle 11/13/24 1112 <Electronically signed by Ramon Garcia DPM> Cosigner Signature (if applicable): CC: ~ Signed [facility] Work Phone: 1(918) 535-126905-27-2025 Progress note [facility] [address] [place] [address] Progress Note - Wound Care 11/13/24 1104 MR#: [id number] Acct: [id number] Name: LANI ZARAGOZA Rep #:[id number] : 1955 69 From: Ramon Garcia DPM PCP: Dr. Bernabe Reese MD Status:RE G RCR Location: History of Present Illness Date of Service: 11/13/24 Chief Complaint: Right heel wound History of Wound: Patient has chronic wound to right heel in setting of diabeticneuropathy, poorly controlled diabetes, peripheral neuropathy, peripheral arterial disease, iron deficiency, chronic chronic anticoagulation. Patient denies constitutional symptoms. Patient ambulates in surgical shoe with heel offloading. 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 Patient has no other complaints. Objective Data Objective Data Vital Signs: Vital Signs Temp Pulse Resp BP O2 Del Method 96.2 F L 69 18 127/67 H Room Air 11/13/24 10:23 11/13/24 10:23 11/13/24 10:23 11/13/24 10:23 11/13/24 10:23 Oxygen Delivery Method Room Air Weight: 164.654 kg Body Mass Index (BMI) 55.2 Physical Exam Narrative Neurovascular status unchanged. Stable right plantar heel wound with intact external fixator. Wound demonstrates clean granular base postdebridement with no deep probing undermining or signs of infection acutely. Debridement Note Debridement Note Post-Debridement Measurements and Additional Note: Post-Debridement Measurements/Treatment - Nurse 1 - General Ulcer Assessment Start: 11/06/24 10:49 Freq: Status: Active Protocol: BUDDY.YOUNG Activity Type Activity Date Activity User E-sign Co-sign Detail Recorded Client Recorded Date Recorded By Document 11/06/24 11:09 KW [id number] 11/06/24 11:11 KW Document 11/13/24 10:23 KW [id number] 11/13/24 10:35 KW 11/06/24 11/13/24 11:09 10:23 - Today's Visit Information Type of service Follow-up Visit Follow-up Visit (Physician/PROGRAM COORDINATOR EXECUTIVE EDUCATION (Physician/PROGRAM COORDINATOR EXECUTIVE EDUCATION ) ) Arrival Mode Walker Wheelchair Patient Identification Verified (Name & Yes Yes ) Height and Weight Body Mass Index (BMI) 55.2 55.2 BMI Classification Obese Obese Vital Signs Temperature (97.8 F-99.1 F) 97.0 F L 96.2 F L Temperature Source Temporal Temporal Pulse Rate (60-100) 81 69 Pulse Location Monitor Monitor Respiratory Rate (12-18) 18 18 Respiratory rate source Observation Observation Oxygen Delivery Method Room Air Room Air Blood Pressure (90/60-120/80) 137/72 H 127/67 H Blood Pressure Mean (mm Hg) 93 87 Source Monitor Monitor Position Sitting Sitting Blood Pressure Location Left Arm Left Arm History Since Last Visit- (Skip if this is Patient's initial visit) Have you changed medications since your No No last visit? Any new allergies or adverse reactions No No Had a fall/change in ADL's that may No No increase risk of falls Signs or symptoms of abuse and/or No No neglect since last visit Have you been in the hospital since your Yes No last visit? Has dressing in place as prescribed Yes Yes Has compression in place as prescribed N/A N/A Has offloadiing in place as prescribed Yes Yes Experienced any changes in pain level or No No management Left Footwear No Footwear Regular Shoe Right Footwear No Footwear No Footwear Pain Scale: 0-10 Numeric Is Patient Pain Free? Yes Yes - Nurse 1 - General Ulcer Measurement Start: 11/06/24 10:49 Freq: Status: Active Protocol: Activity Type Activity Date Activity User E-sign Co-sign Detail Recorded Client Recorded Date Recorded By Document 11/06/24 11:09 KW [id number] 11/06/24 11:11 KW Document 11/13/24 10:23 KW [id number] 11/13/24 10:35 KW 11/06/24 11/13/24 11:09 10:23 Wound Center Nurse 1 4.R heel medial -Current Size (cm) - Length 0.1 0.1 -Current Size (cm) - Width 0.1 0.1 -Current Size (cm) - Depth 0.1 0 -Total Square Cm 0.01 0.01 -Date of Last Picture (Recall this 11/06/24 field) -Exudate Amt Large -Exudate Type Serosanguineous -Wound Margin Distinct, Outline Attached -Granulation Amt Large (67-100%) -Granulation Quality Red -Necrosis Amt Medium (34-66%) -Necrotic Tissue Type Adherent Slough -Texture (Lesvia-wound Skin Appearance) Assessed Assessed -Moisture (Lesvia-wound Skin Appearance) Assessed,Dry/ Assessed Scaly -Color (Lesvia-wound Skin Appearance) Assessed Assessed -Temperature (Lesvia-wound Skin No Abnormality No Abnormality Appearance) (Pt Warm) (Pt Warm) -Tenderness on Palpation (Lesvia-wound No No Skin Appearance) -Ulcer Cleansing Soap and Water Soap and Water -Foul Odor after Cleansing No No -Anesthetic Used 5% Lidocaine Gel -Wound Comment(s) not measured not measured in during nurse 1 nurse 1, in room WC - Nurse 2 - General Ulcer CM Notes Start: 11/06/24 10:49 Freq: Status: Active Protocol: Activity Type Activity Date Activity User E-sign Co-sign Detail Recorded Client Recorded Date Recorded By Document 11/06/24 10:53 [id number] 11/06/24 10:54 Document 11/13/24 11:03 [id number] 11/13/24 11:04 11/06/24 11/13/24 10:53 11:03 Wound Center Nurse 2 4.R heel medial -Time 10:53 11:03 -Correct Patient Yes Yes -Correct Side, Site, Position Yes Yes -Correct Procedure Yes Yes -Procedure Performed Yes Yes -Type of Procedure Debridement Debridement -Clinical Debridement Muscle / Fascia Muscle / Fascia -Tissue Removed Muscle Muscle -Post Debridement (cm) - Length 4.2 3.4 -Post Debridement (cm) - Width 5.4 4.8 -Post Debridement (cm) - Depth 1.8 0.2 -Total Square (Post) (cm) 22.68 16.32 -Area of Debridement (cm) - Length 4.2 3.4 -Area of Debridement (cm) - Width 5.4 4.8 -Total Square (Area) (cm) 22.68 16.32 -Tunneling No No -Undermining/Tunneling No No -Circular Undermining No No -Wound/Ulcer Outcome Not Healed Not Healed -Ulcer Cleansing Rinsed/ Rinsed/ Irrigated with Irrigated with Saline Saline -Foul Odor after Cleansing No No -Bioengineered Tissue No No -Bleeding Controlled with Pressure Pressure, Surgifoam 3 18 x 5 (lg) -Surgifoam (3 06/27 x 5) Large 2 -Treatment Response Procedure Procedure Tolerated Well Tolerated Well -Offloading No Yes -Type of Offloading Other -Other Type of Offloading external fixator -Assistive Device(s) Wheelchair -Debridement - Muscle / Fascia, 1st Yes Yes 20sq cm -Debridement, Muscle/Fascia, ea addt'l 1 20sq cm or part thereof Pain Scale: 0-10 Numeric Is Patient Pain Free? Yes Yes - Nurse 3 - General Ulcer D/C NN Start: 11/06/24 10:49 Freq: Status: Active Protocol: Activity Type Activity Date Activity User E-sign Co-sign Detail Recorded Client Recorded Date Recorded By Document 11/06/24 11:11 KW [id number] 11/06/24 11:12 KW 11/06/24 11:11 Wound Care Center Nurse 3 4.R heel medial -Other Dressing dakins moistened gauze -Primary Dressing Covered/Secured with Dry Gauze & Roll Gauze, Secured with Tape -Wound Comment(s) pt has external fixature in place Pain Scale: 0-10 Numeric Is Patient Pain Free? Yes WC - Visit Discharge Discharge Condition Stable Ambulatory Status Wheelchair Medication Reconcilliation completed & No provided to patient/care provider Clinical Summary of Care Provided Yes Assessment/Plan Assessment/Plan (1) Acute osteomyelitis of right calcaneus: CODE(S): M86.171 - Other acute osteomyelitis, right ankle and foot PLAN: Exam performed. As mentioned previously in subjective patient suffered stroke. Only deficit is some issues with short-term memory. Patient's wound is noted to be improving today. Patient receiving IV antibiotics via PICC line per infectious disease. Today right heel wound was excisionally debrided down to including level of muscle using a 5 mm dermal curette with incident without incident. All nonviable tissue was removed. Patient tolerated procedure well. Hemostasis obtained with light compression. Pre and postdebridement measurements document nursing notes. Will plan for Dakin's wet-to-dry dressing to the wound site. Plan for Betadine to pin sites. Patient will continue nonweightbearing to right lower extremity with offloading via delta frame with heel offloading U built into it. Follow-up weekly. Initial plan was for wound vac, but due to eliquis and bleeding with debridementI feel he would be a poor candidate (2) Non-pressure chronic ulcer of other part of right foot with necrosis of muscle: CODE(S): L97.513 - Non-pressure chronic ulcer of other part of right foot with necrosis of muscle 11/13/24 1112 Cosigner Signature (if applicable): CC: ~ Signed [facility]05-20-2025 Progress note Author Ramon Garcia [facility] Note Date/Time November 06, 2024 10:58 am [facility] [address] [place] [address] Progress Note - Wound Care 11/06/24 1054 MR#: [id number] Acct: [id number] Name: LANI ZARAGOZA Rep #:[id number] : 1955 69 From: Ramon Garcia DPM PCP: Dr. Bernabe Reese MD Status:FL E RCR Location: History of Present Illness Date of Service: 11/06/24 Chief Complaint: Right heel wound History of Wound: Patient has chronic wound to right heel in setting of diabeticneuropathy, poorly controlled diabetes, peripheral neuropathy, peripheral arterial disease, iron deficiency, chronic chronic anticoagulation. Patient denies constitutional symptoms. Patient ambulates in surgical shoe with heel offloading. 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 Patient has no other complaints. Subjective Subjective Patient is 3 weeks postop from application of right lower extremity external fixation with wound debridement down to bone. Patient was placed on PICC line with IV antibiotics per infectious disease. Patient had a complication postoperatively and suffered a stroke and was ultimately transferred to [facility] which is why I have not seen him during the postoperative period until 3 weeks postop. Patient presents today stating he has no motor deficits to his knowledge; however, he has some issues with short-term memory after the stroke. Patient is residing in a SNF where they are performing wound care dressing changes. Objective Data Objective Data Vital Signs: Vital Signs Temp Pulse Resp BP 97.6 F L 80 16 160/71 H 10/18/24 00:21 10/18/24 00:21 10/18/24 00:21 10/18/24 00:21 Weight: 164.654 kg Body Mass Index (BMI) 55.2 Physical Exam Narrative Neurovascular status unchanged. Stable right plantar heel wound with intact external fixator. Wound demonstrates clean granular base postdebridement with no deep probing undermining or signs of infection acutely. Assessment/Plan Assessment/Plan (1) Acute osteomyelitis of right calcaneus: CODE(S): M86.171 - Other acute osteomyelitis, right ankle and foot PLAN: Exam performed. As mentioned previously in subjective patient suffered stroke. Only deficit is some issues with short-term memory. Patient's wound is noted to be improving today. Patient receiving IV antibiotics via PICC line per infectious disease. Today right heel wound was excisionally debrided down to including level of muscle using a 5 mm dermal curette with incident without incident. All nonviabletissue was removed. Patient tolerated procedure well. Hemostasis obtained withlight compression. Pre and postdebridement measurements document nursing notes. Will plan for Dakin's wet-to-dry dressing to the wound site. Plan for Betadine to pin sites. Patient will continue nonweightbearing to right lower extremity with offloading via delta frame with heel offloading U built into it. Follow-up weekly. (2) Non-pressure chronic ulcer of other part of right foot with necrosis of muscle: CODE(S): L97.513 - Non-pressure chronic ulcer of other part of right foot with necrosis of muscle 11/06/24 1058 <Electronically signed by Ramon Garcia DPM> Cosigner Signature (if applicable): CC: ~ Signed [facility] Work Phone: 1(960) 624-422005-20-2025 Progress note [facility] [address] [place] [id number] Progress Note - Wound Care 11/06/24 1054 MR#: [id number] Acct: [id number] Name: LANI ZARAGOZA Rep #:[id number] : 1955 69 From: Ramon Garcia DPM PCP: Dr. Bernabe Reese MD Status:FL E RCR Location: History of Present Illness Date of Service: 11/06/24 Chief Complaint: Right heel wound History of Wound: Patient has chronic wound to right heel in setting of diabeticneuropathy, poorly controlled diabetes, peripheral neuropathy, peripheral arterial disease, iron deficiency, chronic chronic anticoagulation. Patient denies constitutional symptoms. Patient ambulates in surgical shoe with heel offloading. 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 Patient has no other complaints. Subjective Subjective Patient is 3 weeks postop from application of right lower extremity external fixation with wound debridement down to bone. Patient was placed on PICC line with IV antibiotics per infectious disease. Patient had a complication postoperatively and suffered a stroke and was ultimately transferred to [facility] which is why I have not seen him during the postoperative period until 3 weeks postop. Patient presents today stating he has no motor deficits to his knowledge; however, he has some issues with short-term memory after the stroke. Patient is residing in a SNF where they are performing wound care dressing changes. Objective Data Objective Data Vital Signs: Vital Signs Temp Pulse Resp BP 97.6 F L 80 16 160/71 H 10/18/24 00:21 10/18/24 00:21 10/18/24 00:21 10/18/24 00:21 Weight: 164.654 kg Body Mass Index (BMI) 55.2 Physical Exam Narrative Neurovascular status unchanged. Stable right plantar heel wound with intact external fixator. Wound demonstrates clean granular base postdebridement with no deep probing undermining or signs of infection acutely. Assessment/Plan Assessment/Plan (1) Acute osteomyelitis of right calcaneus: CODE(S): M86.171 - Other acute osteomyelitis, right ankle and foot PLAN: Exam performed. As mentioned previously in subjective patient suffered stroke. Only deficit is some issues with short-term memory. Patient's wound is noted to be improving today. Patient receiving IV antibiotics via PICC line per infectious disease. Today right heel wound was excisionally debrided down to including level of muscle using a 5 mm dermal curette with incident without incident. All nonviabletissue was removed. Patient tolerated procedure well. Hemostasis obtained withlight compression. Pre and postdebridement measurements document n ursing notes. Will plan for Dakin's wet-to-dry dressing to the wound site. Plan for Betadine to pin sites. Patient will continue nonweightbearing to right lower extremity with offloading via delta frame with heel offloading U built into it. Follow-up weekly. (2) Non-pressure chronic ulcer of other part of right foot with necrosis of muscle: CODE(S): L97.513 - Non-pressure chronic ulcer of other part of right foot with necrosis of muscle 11/06/24 1058 Cosigner Signature (if applicable): CC: ~ Signed [facility]05-13-2025 Hospital Discharge instructions* Discharge Instructions* Francine Siddiqui, JENNIFER-PROGRAM COORDINATOR EXECUTIVE EDUCATION - 10/30/2024 10:41 AM EDT Please take these discharge instructions to your primary care doctor follow appointment to show them,keep them for your reference and refer to them often for follow up appointments. It is best to write your appointments on a personal calendar so you do not miss them. Call if you need to change any appointments please. Keep an up-to-date medication list with you at all times. Stroke Education: visit [email or web address] What are the most common symptoms of stroke? The following are the most common symptoms of stroke. However, each individual may experience symptoms differently. If any of these symptoms are present, call 911 (or your local ambulance service) immediately. Treatment is most effective when started immediately. Symptoms may be sudden and include: -Weakness or numbness of the face, arm, or leg, especially on one side of the body -Confusion or difficulty speaking or understanding -Problems with vision such as dimness or loss of vision in one or both eyes -Dizziness or problems with balance or coordination -Problems with movement or walking -Severe headaches with no other known cause, especially if sudden onset All of the above warning signs may not occur with each stroke. Do not ignore any of the warning signs, even if they go away - take action immediately. The symptoms of stroke may resemble other medical conditions or problems. Always consult your physician for a diagnosis. We have provided both written and verbal education to the patient and family regarding ischemic andhemorrhagic strokes. We have discussed the warning signs/symptoms as well as causes of stroke. We have discussed the importance of activating 911/EMS in the event of these symptoms. We have reviewed the patient's personal risk factors as well as education on reducing these risk factors. [facility] Personalized Stroke Treatment Plan My Stroke Type: [x] Ischemic Stroke (Blockage of blood flow to the brain) [] Hemorrhagic Stroke (Bleeding in the brain) [] TIA- Transient Ischemic Attack (mini-stroke) My Risk Factors Include: [x] High Blood Pressure [] Diabetes [x] High Cholesterol [] Heart Disease [x] Atrial Fibrillation (Irregular Heart Rate) [] Smoking/Vaping/E-Cigarettes [] Obesity [] Clotting Disorder [] Alcohol Abuse [] Drug Abuse [] Prior History [] Family History [] Obstructive Sleep Apnea My Follow-Up Treatment Goals: [x] Blood Pressure < 140/90 [] Stop Smoking, Vaping, and/or using E-Cigarettes Immediately [x] LDL < 70 [x] HgA1C levels < 7% [] Decrease BMI to < 25 [x] Take all ordered medications [] Avoid non-prescription or [id number] medication not cleared by your physician [x] Limit Alcohol use to no more than 1 drink per day for females and 2 drinks per day for males [] Do not drive until cleared [x] Follow up with PCP (Primary Care Provider) within a week of discharge to home [x] Follow-up with Neurovascular (Stroke Doctor) [x] Follow-up with Occupational,physical and speech therapy if ordered [x] Watch out for depression and seek treatment if needed Patient Stroke Resources CONTACTS FOR NEUROVASCULAR SERVICE: - Please first consider reaching out to your PCP (Primary Care Provider) for ongoing care needs andguidance. - You may call the neurovascular doctors office at [phone], if you have questions Mon-Fri between 8:30 am and 4:30 pm. - For off hours or the weekend you may call the office or the hospital bottle capping machine operator at and ask for the stroke resident workplace rehabilitation officer to be paged. - If you have any other questions or needs, please call Belinda RODRIGUEZ, RN, Stroke Nurse Navigator at [phone] Mon-Fri between 7:00am and 3:00pm. - Additional assistance may be found by reaching out to our Case Management Office at [phone]. *In the event of an Emergency: If you have a physical or psychiatric emergency call 551 or go to your local emergency department. You should also call your outpatient provider's emergency number. Other reference numbers: [facility] Intake Office at [phone]; [facility] at [phone]; or Suicide Prevention Hotline at 328-347-8163. *Helpful phone numbers: Free Crisis Hotline: 7-250-670-TALK ( ) Suicide Hotline: 817.938.4306 Seniors Suicide Hotline: 930.493.5227 [facility] Youth: 586.532.7487 [facility] [place]: 838.821.3355 (free counseling) [facility] Access Hotline: 061-377-GQGR (919-161-4699) 24-hour crisis text hotline: Text the word "4hope" to 243-994 for crisis support. Texting this number is free if you have [employer], [employer], [employer] or Sprint. [facility] Financial Assistance: If you want to learn more about these programs, please call .There are three programsto help you with the cost of your medical care: Medicaid, Hospital Care Assurance Program (HCAP) & bakari If you are without Insurance and believe you may qualify for Medicaid/public assistance: The [facility] Department of Job and Family Services can now process sparks (TANF), food (SNAP) and Medicaid Applications over the phone. Please call [phone] ([phone]) and apply over the phone or apply online at www.benefits.[place].gov. Tuesday-Tuesday 8am-12pm noon. Medication Assistance Programs [employer] members can buy 100+ common prescriptions for FREE, $3 or $6. Annual membership is $36 for individuals and $72 for families (up to 6 people, including pets). Sign up online or enroll at your nearest pharmacy! -[employer], web site can provide a significant number of coupons for medications at a much lower n[place]olson. [place] Department of Aging The Department of Aging administers programs and services to meet the needs of older [facility]. Services and resources offered per county may include transportation, housekeeping, meals and nutrition, personal care, case management, safety monitoring, home medical equipment, legal services, associate director financial aid, health and wellness, education, caregiver support, respite care, etc. Call to be connected to the area agency on aging serving your community or visit aging.[place].gov/find-services. Request a consultation with a community resource expert at ltssi.age.[place].gov/ [facility] Stroke Support The [facility] Stroke Support Group is for stroke survivors, friends, and family members. Meets on the Tuesday of each month from 6:30pm-7:30pm at [facility] ([address]; [place] [address]). Contact Ariane Donato, at [phone] or [email or web address]. If you are outside of the [place] area, contact The [employer] at www.stroke.org or 4-584-2-STROKE or for support groups in your area. You may also refer to the Your Care after a Stroke education booklet at go.[facility].[email or web address]/znhi7660 for additional resources. * Medications* AHSAN Hutchins - 10/30/2024 10:41 AM EDT Know your medicines Make sure you know why you are taking each medicine. Make a master list of all your medicines. Write down the medicine names and doctors' names. Includedoses and side effects too. And write down why you take each medicine. Include all prescription [id number] medicines, vitamins, and supplements. Keep this list up to date. Take a copy to each doctor visit. Know when you will run out of each medicine. Ask your pharmacist if there are ways the drugstore can remind you to refill your medicines so you do not run out. Write refill reminders on your calendar. Don't wait until you have a few pills left. Ask your pharmacist to plan your refills so that you can picker and packer all your medicines at the same time. This can mean fewer trips to the drugstore. If we have prescribed you a new medication during your stay, please contact with your primary physician for refills * Discharge Instr - Activity* AHSAN Hutchins - 10/30/2024 10:41 AM EDT Activity -- Please follow these instructions: -Advance your activity as you can tolerate - You may walk all you want. You may go up and down the steps. Use the railing for support - It is normal for your energy level and sleep patterns to change after a stroke - Take rest periods during the day as needed - Complete recovery may take several weeks, months, up to a year. Patience is mast. * Discharge Instr - Diet* AHSAN Hutchins - 10/30/2024 10:41 AM EDT Current Diet Orders Procedures DIET CARB CONTROLLED 1:1 supervision with small snacks when BiPAP is OFF Standing Status: Standing Number of Occurrences: 1 * Discharge Instr - Notify* AHSAN Hutchins - 10/30/2024 10:41 AM EDT Notify Your Doctor if you have any of the following: NEUROLOGICAL CHANGES-- Change in alertness Increased sleepiness Nausea and vomiting New onset of numbness or weakness in arms or legs New problems with your bowels or bladder New or worse problems with balance or walking Seizures, new or worsening UNRELIEVED HEADACHE PAIN-- New or increased pain unrelieved with pain medications Pain associated with nausea and vomiting Pain associated with other symptoms QUESTIONS OR PROBLEMS-- Any questions or problems that you are unsure about Deep Vein Thrombosis Symptoms Call your doctor or nurse right away if you have any signs of blood clots such as -Tender, swollen or reddened areas anywhere in your leg. -Numbness or tingling in your lower leg or calf, or at the top of your leg or groin -Skin on you leg looks pale or blue or feels cold to touch -Chest pain or have trouble breathing -Fever or chills [facility] Miscellaneous Notes* Nursing Notes - Felicitas Reed RN - 10/30/2024 10:38 AM EDT Patient left with EMS. Belongings sent with patient. Patient asking about walker that was brought in. No walker in room. And no walker documented on admission. * Nursing Notes - Felicitas Reed RN - 10/30/2024 10:16 AM EDT Report given to nurse at SNF. AVS and BELLA faxed to facility. * Plan of Care - Luis Yang RN - 10/29/2024 8:01 PM EDT Problem: Adult Inpatient Plan of Care Goal: Plan of Care Review Outcome: Progressing Goal: Patient-Specific Goal (Individualized) Outcome: Progressing Goal: Absence of Hospital-Acquired Illness or Injury Outcome: Progressing Goal: Optimal Comfort and Wellbeing Outcome: Progressing Goal: Readiness for Transition of Care Outcome: Progressing Problem: Stroke, Intracerebral Hemorrhage Goal: Optimal Coping Outcome: Progressing Goal: Effective Bowel Elimination Outcome: Progressing Goal: Optimal Cerebral Tissue Perfusion Outcome: Progressing Goal: Optimal Cognitive Function Outcome: Progressing Goal: Effective Communication Skills Outcome: Progressing Goal: Optimal Functional Ability Outcome: Progressing Goal: Optimal Nutrition Intake Outcome: Progressing Goal: Optimal Pain Control and Function Outcome: Progressing Goal: Effective Oxygenation and Ventilation Outcome: Progressing Goal: Improved Sensorimotor Function Outcome: Progressing Goal: Safe and Effective Swallow Outcome: Progressing Goal: Effective Urinary Elimination Outcome: Progressing Problem: Oral Intake Inadequate Goal: Optimal Oral Intake Outcome: Progressing * Plan of Care - Danielle Ricardo RN - 10/29/2024 1:43 PM EDT Problem: Adult Inpatient Plan of Care Goal: Plan of Care Review Outcome: Progressing Goal: Patient-Specific Goal (Individualized) Outcome: Progressing Goal: Absence of Hospital-Acquired Illness or Injury Outcome: Progressing Goal: Optimal Comfort and Wellbeing Outcome: Progressing Goal: Readiness for Transition of Care Outcome: Progressing Problem: Stroke, Intracerebral Hemorrhage Goal: Optimal Coping Outcome: Progressing Goal: Optimal Cognitive Function Outcome: Progressing Goal: Effective Communication Skills Outcome: Progressing Goal: Optimal Functional Ability Outcome: Progressing Goal: Optimal Nutrition Intake Outcome: Progressing Goal: Optimal Pain Control and Function Outcome: Progressing Goal: Improved Sensorimotor Function Outcome: Progressing Goal: Safe and Effective Swallow Outcome: Progressing Goal: Effective Urinary Elimination Outcome: Progressing * Plan of Care - Aixa Arvizu RN - 10/28/2024 6:40 PM EDT Problem: Adult Inpatient Plan of Care Goal: Plan of Care Review Outcome: Progressing Goal: Patient-Specific Goal (Individualized) Outcome: Progressing Goal: Absence of Hospital-Acquired Illness or Injury Outcome: Progressing Goal: Optimal Comfort and Wellbeing Outcome: Progressing Goal: Readiness for Transition of Care Outcome: Progressing Problem: Stroke, Intracerebral Hemorrhage Goal: Optimal Coping Outcome: Progressing Goal: Optimal Functional Ability Outcome: Progressing Goal: Optimal Pain Control and Function Outcome: Progressing Goal: Safe and Effective Swallow Outcome: Progressing * Plan of Care - Aixa Arvizu RN - 10/27/2024 5:51 PM EDT Problem: Adult Inpatient Plan of Care Goal: Plan of Care Review Outcome: Progressing Goal: Patient-Specific Goal (Individualized) Outcome: Progressing Goal: Absence of Hospital-Acquired Illness or Injury Outcome: Progressing Goal: Optimal Comfort and Wellbeing Outcome: Progressing Goal: Readiness for Transition of Care Outcome: Progressing Problem: Stroke, Intracerebral Hemorrhage Goal: Optimal Coping Outcome: Progressing Goal: Effective Communication Skills Outcome: Progressing Goal: Optimal Functional Ability Outcome: Progressing * Plan of Care - Renee Li RN - 10/26/2024 8:04 PM EDT Problem: Adult Inpatient Plan of Care Goal: Plan of Care Review Outcome: Progressing Goal: Patient-Specific Goal (Individualized) Outcome: Progressing Goal: Absence of Hospital-Acquired Illness or Injury Outcome: Progressing Goal: Optimal Comfort and Wellbeing Outcome: Progressing Goal: Readiness for Transition of Care Outcome: Progressing Problem: Stroke, Intracerebral Hemorrhage Goal: Optimal Coping Outcome: Progressing Goal: Effective Bowel Elimination Outcome: Progressing Goal: Optimal Cerebral Tissue Perfusion Outcome: Progressing Goal: Optimal Cognitive Function Outcome: Progressing Goal: Effective Communication Skills Outcome: Progressing Goal: Optimal Functional Ability Outcome: Progressing Goal: Optimal Nutrition Intake Outcome: Progressing Goal: Optimal Pain Control and Function Outcome: Progressing Goal: Improved Sensorimotor Function Outcome: Progressing Goal: Safe and Effective Swallow Outcome: Progressing Goal: Effective Urinary Elimination Outcome: Progressing * Plan of Care - Abeba Armendariz RN - 10/25/2024 7:59 PM EDT Problem: Adult Inpatient Plan of Care Goal: Plan of Care Review Outcome: Progressing Goal: Patient-Specific Goal (Individualized) Outcome: Progressing Goal: Absence of Hospital-Acquired Illness or Injury Outcome: Progressing Goal: Optimal Comfort and Wellbeing Outcome: Progressing Goal: Readiness for Transition of Care Outcome: Progressing * Plan of Care - Kathy Avila RD - 10/25/2024 3:41 PM EDT Problem: Oral Intake Inadequate Goal: Optimal Oral Intake Outcome: Progressing Nutrition Recommendations and Plan of Care: Continue with Carb Controlled Diet as tolerated. Will send [employer] NoCarb TID (60 kcal, 15 g protein each) to aid in meeting kcal and protein needs. Start MVI with minerals. Monitor/encourage PO intake. Monitor GI function, skin integrity, weight changes, and labs. RD to continue to follow. * Plan of Care - EVETTE Carballo - 10/25/2024 1:58 PM EDT Problem: GEARMAN - Language Goal: Word Retrieval Strategies for Conversation - Patient will state and/or demonstrate understanding of trained strategies targeting anomia with no more than min cues to use strategies during functional conversation to reduce communication breakdowns Outcome: Ongoing Goal: Reading Comprehension Command Following - Patient will independently follow written 1-step commands with 70% accuracy to increase written receptive language and reading comprehension skills. Outcome: Ongoing Problem: GEARMAN - Cognition Goal: Metacognition - Patient will identify at least x2-3 deficits related to medical condition andhow deficits will impact ability to return home with fading cues to improve safety and independence Outcome: Progressing * Plan of Care - Karime Phillip RN - 10/25/2024 3:30 AM EDT Problem: Adult Inpatient Plan of Care Goal: Plan of Care Review Outcome: Progressing Goal: Patient-Specific Goal (Individualized) Outcome: Progressing Goal: Absence of Hospital-Acquired Illness or Injury Outcome: Progressing Goal: Optimal Comfort and Wellbeing Outcome: Progressing Goal: Readiness for Transition of Care Outcome: Progressing Problem: Stroke, Intracerebral Hemorrhage Goal: Optimal Coping Outcome: Progressing Goal: Effective Bowel Elimination Outcome: Progressing Goal: Optimal Cerebral Tissue Perfusion Outcome: Progressing Goal: Optimal Cognitive Function Outcome: Progressing Goal: Effective Communication Skills Outcome: Progressing Goal: Optimal Functional Ability Outcome: Progressing Goal: Optimal Nutrition Intake Outcome: Progressing Goal: Optimal Pain Control and Function Outcome: Progressing Goal: Effective Oxygenation and Ventilation Outcome: Progressing Goal: Improved Sensorimotor Function Outcome: Progressing Goal: Safe and Effective Swallow Outcome: Progressing Goal: Effective Urinary Elimination Outcome: Progressing Problem: OT - ADLs Goal: Grooming - Patient will complete grooming edge of bed with standby assistance for improved ability to safely complete ADLs. Outcome: Progressing Problem: OT - Transfers Goal: Transfers Supine -> Sit - Patient will perform supine to/from sit with flat bed & no rail and moderate assistance to improve participation in ADLs. Outcome: Progressing Problem: OT - Balance Goal: Balance - Seated - Patient will perform 8-10 minutes of functional task in sitting with standby assistance and good balance to promote safety during self- care activities. Outcome: Progressing Problem: OT - Strength/ROM Goal: Neuro Re-education - Patient will participate in neuro re-ed of right upper extremity with independence and 80% accuracy for improved functional use in ADLs. Outcome: Progressing Problem: OT - Cognition Goal: Cognition Simple ADL - Patient will demonstrate improved cognition, completing simple ADL task for 8-10 minutes with no greater than min cues required to maintain attention. Outcome: Progressing Problem: OT - Vision Goal: Visual Tracking - Patient will track past midline to right during session with no greater than min cues to attend to familiar object/person for ADL participation in 4/5 trials. Outcome: Progressing Problem: PT - General Goals Goal: Supine <-> Sit Transfers - Patient will perform supine to/from sit transfers with moderate assistance and of 2 people and with use of hospital bed features in order to improve functional mobility and safety. Outcome: Progressing Goal: Sitting Endurance/Balance - Patient will perform seated balance tasks for 8 minutes with minimal assistance and bilateral UE support while maintaining trunk in midline Outcome: Progressing Goal: Sit <-> Stand Transfers - Patient will perform sit to/from stand transfers with maximalassistance and of 2 people NWB RLE in order to improve functional mobility and safety. Outcome: Progressing Goal: Stand/Squat Pivot Transfers - Patient will perform stand pivot transfer to/from bed/chair/commode with maximal assistance and of 2 people NWB RLE in order to improve functional mobility and safety. Outcome: Progressing Problem: GEARMAN - Cognition Goal: Metacognition - Patient will identify at least x2-3 deficits related to medical condition andhow deficits will impact ability to return home with fading cues to improve safety and independence Outcome: Progressing Problem: GEARMAN - Language Goal: Word Retrieval Strategies for Conversation - Patient will state and/or demonstrate understanding of trained strategies targeting anomia with no more than min cues to use strategies during functional conversation to reduce communication breakdowns Outcome: Progressing Goal: Reading Comprehension Command Following - Patient will independently follow written 1-step commands with 70% accuracy to increase written receptive language and reading comprehension skills. Outcome: Progressing * Plan of Care - Herberth Maria RN - 10/24/2024 8:10 PM EDT Problem: Adult Inpatient Plan of Care Goal: Plan of Care Review Outcome: Progressing Goal: Patient-Specific Goal (Individualized) Outcome: Progressing Goal: Absence of Hospital-Acquired Illness or Injury Outcome: Progressing Goal: Optimal Comfort and Wellbeing Outcome: Progressing Goal: Readiness for Transition of Care Outcome: Progressing * Significant Event - Cory Guzman APRN-MICHAEL - 10/24/2024 4:00 PM EDT Patient c/o chest pain and SOB, no hypoxia. Discussed with the nurse and the respiratory therapist.Admitted being anxious and depressed. -Administer breathing treatment -Check ECG, Troponin and CXR -If normal, may try anxiolytics -Patient declines anti-depressant at this time but would like to think over it AHSAN Chavez 10/24/2024 4:33 PM * Plan of Care - Rebecca Lantigua, PT - 10/24/2024 11:19 AM EDT Problem: PT - General Goals Goal: Supine <-> Sit Transfers - Patient will perform supine to/from sit transfers with moderate assistance and of 2 people and with use of hospital bed features in order to improve functional mobility and safety. Outcome: Progressing Goal: Sitting Endurance/Balance - Patient will perform seated balance tasks for 8 minutes with minimal assistance and bilateral UE support while maintaining trunk in midline Outcome: Progressing * Plan of Care - Yahaira Alcocer, OT - 10/24/2024 9:33 AM EDT Problem: OT - ADLs Goal: Grooming - Patient will complete grooming edge of bed with standby assistance for improved ability to safely complete ADLs. Outcome: Ongoing Problem: OT - Strength/ROM Goal: Neuro Re-education - Patient will participate in neuro re-ed of right upper extremity with independence and 80% accuracy for improved functional use in ADLs. Outcome: Ongoing Problem: OT - Transfers Goal: Transfers Supine -> Sit - Patient will perform supine to/from sit with flat bed & no rail and moderate assistance to improve participation in ADLs. Outcome: Progressing Problem: OT - Balance Goal: Balance - Seated - Patient will perform 8-10 minutes of functional task in sitting with standby assistance and good balance to promote safety during self- care activities. Outcome: Progressing Problem: OT - Cognition Goal: Cognition Simple ADL - Patient will demonstrate improved cognition, completing simple ADL task for 8-10 minutes with no greater than min cues required to maintain attention. Outcome: Progressing Problem: OT - Vision Goal: Visual Tracking - Patient will track past midline to right during session with no greater than min cues to attend to familiar object/person for ADL participation in 4/5 trials. Outcome: Progressing * Plan of Care - Cassandra Overton RN - 10/24/2024 1:15 AM EDT Problem: Adult Inpatient Plan of Care Goal: Plan of Care Review Outcome: Progressing Goal: Patient-Specific Goal (Individualized) Outcome: Progressing Goal: Absence of Hospital-Acquired Illness or Injury Outcome: Progressing Goal: Optimal Comfort and Wellbeing Outcome: Progressing Goal: Readiness for Transition of Care Outcome: Progressing Problem: Stroke, Intracerebral Hemorrhage Goal: Optimal Coping Outcome: Progressing Goal: Effective Bowel Elimination Outcome: Progressing Goal: Optimal Cerebral Tissue Perfusion Outcome: Progressing Goal: Optimal Cognitive Function Outcome: Progressing Goal: Effective Communication Skills Outcome: Progressing Goal: Optimal Functional Ability Outcome: Progressing Goal: Optimal Nutrition Intake Outcome: Progressing Goal: Optimal Pain Control and Function Outcome: Progressing Goal: Effective Oxygenation and Ventilation Outcome: Progressing Goal: Improved Sensorimotor Function Outcome: Progressing Goal: Safe and Effective Swallow Outcome: Progressing Goal: Effective Urinary Elimination Outcome: Progressing * Plan of Care - RAYMOND Thompson - 10/23/2024 10:43 AM EDT Nutrition Plan of Care: 1. Continue current diet order. 2. Pt declined oral nutrition supplements. -To promote wound healing recommend the addition of MVI with minerals , Zinc and Vitamin C. Check Serum Zinc, Vitamin D and Vitamin A. 3. Monitor for significant weight changes. 4. Monitor GI and skin integrity. 5. Monitor and encourage po intakes with goal of average po being 75%. 6. Pt is being referred to unit RD for further evaluation 2/2 PT has poor intake, Declines supplements, and has a wound. [facility] has notified RD via [employer] Chat about referral. RD to follow. * Nursing Notes - Cassandra Overton RN - 10/23/2024 2:00 AM EDT On admission to [facility], from another [facility] inpatient unit a dual RN initial assessment of skin condition was performed by Cassandra Overton RN and Amelia Eid RN. Skin Assessment: Skin not within defined limits. - Wound(s) identified: Yes Gaetano Score: 13 LDA Added:No LDA previously charted Cassandra Overton RN * Plan of Care - Kelsey Valdez RN - 10/22/2024 11:15 PM EDT Problem: Adult Inpatient Plan of Care Goal: Plan of Care Review Outcome: Progressing Goal: Patient-Specific Goal (Individualized) Outcome: Progressing Goal: Optimal Comfort and Wellbeing Outcome: Progressing Goal: Readiness for Transition of Care Outcome: Progressing Problem: Stroke, Intracerebral Hemorrhage Goal: Optimal Nutrition Intake Outcome: Progressing * Plan of Care - Rebecca Lantigua PT - 10/22/2024 12:56 PM EDT Problem: PT - General Goals Goal: Supine <-> Sit Transfers - Patient will perform supine to/from sit transfers with moderate assistance and of 2 people and with use of hospital bed features in order to improve functional mobility and safety. Outcome: Progressing Goal: Sitting Endurance/Balance - Patient will perform seated balance tasks for 8 minutes with minimal assistance and bilateral UE support while maintaining trunk in midline Outcome: Progressing * Plan of Care - Yahaira Alcocer OT - 10/22/2024 8:18 AM EDT Problem: OT - Strength/ROM Goal: Neuro Re-education - Patient will participate in neuro re-ed of right upper extremity with independence and 80% accuracy for improved functional use in ADLs. Outcome: Ongoing Problem: OT - ADLs Goal: Grooming - Patient will complete grooming edge of bed with standby assistance for improved ability to safely complete ADLs. Outcome: Progressing Problem: OT - Transfers Goal: Transfers Supine -> Sit - Patient will perform supine to/from sit with flat bed & no rail and moderate assistance to improve participation in ADLs. Outcome: Progressing Problem: OT - Balance Goal: Balance - Seated - Patient will perform 8-10 minutes of functional task in sitting with standby assistance and good balance to promote safety during self- care activities. Outcome: Progressing Problem: OT - Cognition Goal: Cognition Simple ADL - Patient will demonstrate improved cognition, completing simple ADL task for 8-10 minutes with no greater than min cues required to maintain attention. Outcome: Progressing Problem: OT - Vision Goal: Visual Tracking - Patient will track past midline to right during session with no greater than min cues to attend to familiar object/person for ADL participation in 4/5 trials. Outcome: Progressing * Plan of Care - Toni Greene DO - 10/20/2024 5:58 PM EDT Brief Plan of Care Note Updated by primary team yesterday and operative cultures from OSH are also now growing Brandin. Therefore, we recommended to start Micafungin which the patient is currently on. 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 Please have pharmacy help with dosing. ID Team 5 will continue to follow Thank you Toni Greene DO Attending Physician - Infectious Diseases [phone] * Plan of Care - Francine Butler RN - 10/19/2024 8:39 PM EDT Problem: Stroke, Intracerebral Hemorrhage Goal: Optimal Coping Outcome: Progressing Goal: Effective Bowel Elimination Outcome: Progressing Goal: Effective Communication Skills Outcome: Progressing Goal: Safe and Effective Swallow Outcome: Progressing Goal: Effective Urinary Elimination Outcome: Progressing * Plan of Care - Annika Sanders DPM - 10/19/2024 1:45 PM EDT Podiatry Plan of Care Patient was seen by the podiatry service for evaluation of limb salvage procedure completed at OSH.Posterior heel wound appears stable with external fixator intact. Remain NWB per post-op instructions. Continue local wound care per nursing order. Will defer further management to performing surgeon. Our service will sign off at this time. Should his condition deteriorate or his clinical picture change, please feel free to contact the podiatry resident workplace rehabilitation officer. We will be happy to become involvedin his care again. * Plan of Care - Johnathon Lira RN - 10/19/2024 12:23 AM EDT Problem: Adult Inpatient Plan of Care Goal: Plan of Care Review Outcome: Progressing Goal: Patient-Specific Goal (Individualized) Outcome: Progressing Goal: Absence of Hospital-Acquired Illness or Injury Outcome: Progressing Goal: Optimal Comfort and Wellbeing Outcome: Progressing Goal: Readiness for Transition of Care Outcome: Progressing Problem: Stroke, Intracerebral Hemorrhage Goal: Optimal Coping Outcome: Progressing Goal: Effective Bowel Elimination Outcome: Progressing Goal: Optimal Cerebral Tissue Perfusion Outcome: Progressing Goal: Optimal Cognitive Function Outcome: Progressing Goal: Effective Communication Skills Outcome: Progressing Goal: Optimal Functional Ability Outcome: Progressing Goal: Optimal Nutrition Intake Outcome: Progressing Goal: Optimal Pain Control and Function Outcome: Progressing Goal: Effective Oxygenation and Ventilation Outcome: Progressing Goal: Improved Sensorimotor Function Outcome: Progressing Goal: Safe and Effective Swallow Outcome: Progressing Goal: Effective Urinary Elimination Outcome: Progressing * Nursing Notes - Johnathon Lira RN - 10/18/2024 10:16 PM EDT Patient shaun Mercado updated via phone. * Plan of Care - EVETTE Spann - 10/18/2024 9:47 AM EDT Problem: GEARMAN - Cognition Goal: Metacognition - Patient will identify at least x2-3 deficits related to medical condition andhow deficits will impact ability to return home with fading cues to improve safety and independence Outcome: Ongoing Problem: GEARMAN - Language Goal: Word Retrieval Strategies for Conversation - Patient will state and/or demonstrate understanding of trained strategies targeting anomia with no more than min cues to use strategies during functional conversation to reduce communication breakdowns Outcome: Ongoing Goal: Reading Comprehension Command Following - Patient will independently follow written 1-step commands with 70% accuracy to increase written receptive language and reading comprehension skills. Outcome: Ongoing * Plan of Care - Isabel Otto, PT - 10/17/2024 3:20 PM EDT Problem: PT - General Goals Goal: Supine <-> Sit Transfers - Patient will perform supine to/from sit transfers with moderate assistance and of 2 people and with use of hospital bed features in order to improve functional mobility and safety. Outcome: Ongoing Goal: Sitting Endurance/Balance - Patient will perform seated balance tasks for 8 minutes with minimal assistance and bilateral UE support while maintaining trunk in midline Outcome: Ongoing Goal: Sit <-> Stand Transfers - Patient will perform sit to/from stand transfers with maximalassistance and of 2 people NWB RLE in order to improve functional mobility and safety. Outcome: Ongoing Goal: Stand/Squat Pivot Transfers - Patient will perform stand pivot transfer to/from bed/chair/commode with maximal assistance and of 2 people NWB RLE in order to improve functional mobility and safety. Outcome: Ongoing * Plan of Care - Yahaira Alcocer OT - 10/17/2024 7:58 AM EDT Problem: OT - ADLs Goal: Grooming - Patient will complete grooming edge of bed with standby assistance for improved ability to safely complete ADLs. Outcome: Ongoing Problem: OT - Transfers Goal: Transfers Supine -> Sit - Patient will perform supine to/from sit with flat bed & no rail and moderate assistance to improve participation in ADLs. Outcome: Ongoing Problem: OT - Balance Goal: Balance - Seated - Patient will perform 8-10 minutes of functional task in sitting with standby assistance and good balance to promote safety during self- care activities. Outcome: Ongoing Problem: OT - Strength/ROM Goal: Neuro Re-education - Patient will participate in neuro re-ed of right upper extremity with independence and 80% accuracy for improved functional use in ADLs. Outcome: Ongoing Problem: OT - Cognition Goal: Cognition Simple ADL - Patient will demonstrate improved cognition, completing simple ADL task for 8-10 minutes with no greater than min cues required to maintain attention. Outcome: Ongoing Problem: OT - Vision Goal: Visual Tracking - Patient will track past midline to right during session with no greater than min cues to attend to familiar object/person for ADL participation in 4/5 trials. Outcome: Ongoing * Nursing Notes - Yahaira Ohara RN - 10/17/2024 5:11 AM EDT On admission to NCCU from ED a dual RN initial assessment of skin condition was performed by ZEN Odonnell and Dorie Frederick RN. Skin Assessment: Skin not within defined limits. - Wound(s) identified: Yes - external fixator of RLE with dressing intact - pink, blanchable sacrum with skin intact - skin tear on LUE - umbilical hernia Photos uploaded to [facility]. Gaetano Score: 14 LDA Added:Yes [facility]ara [facility] of Present illness Narrative* ROSALINDA Lugo - 10/30/2024 9:20 AM EDT Care Management Discharge Note Selected Continued Care - Admitted Since 10/16/2024 Destination Coordination complete. Service Provider Services Address Phone Fax Patient Preferred [facility] [address] [facility] [id number] -- Transport Request Mode of Transfer: [facility] Name of Discharge Transport Company: [facility] ETA: 10/30/2024 @10:00am Patient medically stable for discharge per physician/medical team. Patient/Network Liaison remain inagreement with the discharge plan. Insurance authorization has been received and a HENS has been completed for discharge. MISTY Mcdaniels, ROSALINDA Advanced Quality Engineer Available by Secure Chat * ROSALINDA Lugo - 10/29/2024 9:19 AM EDT Placement Plan Expected Discharge Date: Referred Level of Care: SNF Barriers: Medical readiness, transportation. Current Referrals and Status 1. [facility] - Available and Reserved Patient still anticipated to be medically ready for discharge tomorrow morning. SW will remain available to assist as needed. MISTY Mcdaniels LSW Advanced Quality Engineer Available by Secure Chat * AHSAN Hutchins - 10/29/2024 7:48 AM EDT Neurovascular Stroke Service Intracerebral Hemorrhage Note IDENTIFYING INFORMATION Lani Zaragoza MR# [id number] 10/29/2024 HISTORY OF PRESENT ILLNESS Lani Zaragoza is a 69 y.o. male with PMH significant for A fib on Eliquis who was admitted to an outside hospital on 10/09/24 for chronic foot wound and is s/p debridement with podiatry. On the day hewas to be discharged to SNF on 10/16/24 he became acutely confused and aphasic. Stroke alert was called and CTH demonstrated L temporal hemorrage. His Eliquis was being held for surgery since 10/09. [facility]. NIHSS 12 on arrival. LKW 1200 on 10/16. INTERVAL HISTORY 10/17: Brain MRI pending. Brother updated at bedside. 10/18: Repeat CT stable. Remains in NCCU. 10/19-10/22: NCCU admission, diuresis for respiratory management 10/22: Tx to NVSC service 10/23: Resume Losartan at 25mg daily (06/23 home dose) 10/24: Monitor BPs, increase losartan if SBPs above 140's this afternoon. Start Aspirin. 10/25: Dispo plan pending. Plan for repeat CTH tomorrow 10/26 for hemorrhage monitoring 10/26: Repeat CTH overnight stable. Patient endorses improvement in mood 10/27: JASE, resume coreg at reduced dose, chair position in bed 10/28: JASE, improved BP, discharge planning 10/29: Endo paged for final recs PHYSICAL EXAM Gen: awake, alert HEENT: normocephalic, no scalp lesions or tenderness, PERRL, EOMI Neck: trachea midline CV: NSR on monitor Lungs: Respirations unlabored with equal chest rise Abd: soft, nontender, nondistended Extrem: Warm and well perfused, no cyanosis, right leg/foot dressing/eternal fixator in place but pt with dorsi/plantar flexion Neuro: Oriented x4, ODELL x4, sensation intact and equal bilaterally CN II - Right hemianopia CN II/III - PERRL CN III/IV/ - EOMI CN V - Light touch to face intact in all 3 divisions CN VII - Facial movement intact and symmetrical bilaterally CN VIII - Hearing intact CN X - Cough present CN XI - muscular movement of shoulders and sternocleidomastoid muscles intact and equal bilaterally CN XII - midline protrusion of tongue MOTOR EXAMINATION: Right hemiparesis NIHSS Provider NIH Stroke Scale NIH Interval (Provider): daily NIH Level of Conciousness (Provider): 0 NIH LOC Questions (Provider): 0 NIH LOC Commands (Provider): 0 NIH Best Gaze (Provider): 0 NIH Visual (Provider): 1 NIH Facial Palsy (Provider): 0 NIH Left Arm Motor (Provider): 0 NIH Right Arm Motor (Provider): 0 NIH Left Leg Motor (Provider): 0 NIH Right Leg Motor (Provider): 1 NIH Limb Ataxia (Provider): 0 NIH Sensory (Provider): 0 NIH Best Language (Provider): 0 NIH Dysarthria (Provider): 0 NIH Extinction and Inattention (Provider): 1 NIH Total Score (Provider): 3 Intracerebral Hemorrhage Volume ICH Volume Date of Scan: 10/16/24 Time of Scan: 2046 (A) Maximum Length (cm): 4.5 cm (B) Perpendicular Length (cm): 3.6 cm (C) Number of Slices: 5 (C) Slice Thickness (cm) : 0.5 cm ICH Volume (ml) (Calculated Score): 20.25 Intracerebral Hemorrhage Score Intracerebral Hemorrhage (ICH) Scale [place] Coma Scale Points: 0-->GCS 13-15 Age>/=80: 0-->no Infratentorial Origin of Hemorrhage?: 0-->no ICH Volume >/= 30cm(3): 0-->no (less than 30cm(3)) Intraventricular Hemorrhage?: 1-->yes ICH Score (Calculated): 1 Score 30 Day Mortality following ICH 0 0% Mortality 1 13% Mortality 2 26% Mortality 3 72% Mortality 4 97% Mortality 5 100% Mortality ASSESSMENT AND PLAN Neuro: Likely left MEASUREMENT PSYCHOLOGIST territory infarct with hemorrhagic transformation: CTH: Acute left temporo-occipital parenchymal hemorrhage, likely hemorrhagic transformation of recent MEASUREMENT PSYCHOLOGIST territory infarct CTA brain/neck: Equivocal for left MEASUREMENT PSYCHOLOGIST occlusion. No significant carotid or vertebral artery stenosis MRI brain w and w/o: Stable IPH/IVH. TTE: EF 60-65%; no PFO LDL 105, A1c 10.5 -Stroke Etiology (TOAST Criteria): Likely hemorrhagic transformation of recent R MEASUREMENT PSYCHOLOGIST infarct which is likely cardioembolic in nature -Antiplatelet plan: Resumed Aspirin 81 mg daily on 10/24 -Statin therapy: Atorvastatin 40 mg daily -Blood Pressure goal: SBP <160 -Continue to hold Eliquis for now, plan to resume 3 weeks post-bleed (11/06/2024) Hemorrhagic Stroke Core Measures -[facility] on admission 16 -Patient has been started on Mechanical (SCD's) and Pharmacological (SQ heparin) DVT prophylaxis will be started after stable HCT. -Antiplatelet therapy will be initiated 10/24 (PSD 7). -Anticoagulation therapy is indicated for AFib; plan to resume 3 weeks post stroke -Patients LDL 105 and HgbA1c 10.5 were checked -Dysphagia screening ordered, and will be completed prior to patient receiving oral intake. -Stroke education booklet has been provided both written and verbal education to the patient and family regarding hemorrhagic strokes. We have reviewed the patient's personal modifiable risk factors including: A fib as well as education on reducing these risk factors. -Patient is being assessed for Rehab by PT/OT/Speech and PM&R if indicated. AFib on Eliquis (POA) -Hold Eliquis in the setting of IPH with IVH -Restart date and interim initiation of ASA 3 weeks post stroke -Started ASA 10/24 -Eliquis in 3 weeks on 11/06 -Resume Coreg at reduced dose 10/27 HTN (POA): SBP goal <160. Home regimen: Losartan 100mg daily, Amlodipine 5mg daily, Metoprolol 50mg BID -Current regimen: Amlodipine 10 mg daily -Losartan 50 mg daily, increased 10/23 -Coreg held 10/21 for bradycardia; resumed at reduced dose 10/27 DMII (POA) -Hold home Metformin -SSI while IP with 28u Glargine q24h -Endo paged for final recs per their note Respiratory distress (Resolved) TODD -Pt with dyspnea at rest 10/17; BNP 962 -Pt spot-diuresed in NCCU -Nocturnal BiPAP Chronic R foot wound s/p debridement with Podiatry c/b osteomyelitis -Debridement with external fixator at OSH -Remain NWB on R foot -ID c/s for +multiorganism wound Cx: Rec transition Micafungin to fluconazole and cont Meropenem/Vancomycin for 6 weeks of total IV ATB therapy (Stop date: Meropenem/Vanc 11/22; Fluconazole 11/29) CENTRAL LINES: Central Line LDAs Active Central Line Access Devices Name Placement date Placement time Site Days PICC Line - Single Lumen 10/16/24224910/16/242249 -- 12 Central Line Indications: Medication Requiring Central Venous Administration : multiple, watermaster IV antibiotic therapy Can line/s be removed today? Select all that apply Line 1, no cannot be removed Dressing/s Clean/Dry/Intact?: Select all that apply Line 1, Dressing clean, dry, intact Francine Siddiqui, SUPERVISOR NEWSPAPER DELIVERIES-PROGRAM COORDINATOR EXECUTIVE EDUCATION 10/29/2024 12:17 PM VITAL SIGNS Temp: [97.6 F (36.4 C)-98.3 F (36.8 C)] 98 F (36.7 C) Pulse (Heart Rate): [55-68] 68 Resp Rate: [18-20] 18 BP: (122-136)/(56-85) 135/85 O2 Sat (%): [96 %-98 %] 96 % IMAGING/DIAGNOSTIC STUDIES CT HEAD WITHOUT CONTRAST Final Result IMPRESSION: Interval decreased density of the hemorrhagic area involving the left temporal and occipital lobes. The extent of the surrounding vasogenic edema and the associated mass effect appear unchanged. CHEST 1 VIEW PORTABLE Final Result IMPRESSION: Improved bibasilar pleural effusions and associated atelectasis. I personally viewed and interpreted these images and I have reviewed and approved this report. BRAIN WITHOUT CONTRAST Final Result IMPRESSION: Grossly stable parenchymal hemorrhage with surrounding edema centered in the left temporooccipital region, which could relate to hemorrhagic transformation of recent left MEASUREMENT PSYCHOLOGIST territory infarct. No progressive mass effect. Stable small volume of intraventricular extension of hemorrhage. CHEST 1 VIEW PORTABLE Final Result IMPRESSION: Persistent opacification in the lung bases obscuring the hemidiaphragms consistent with small effusions and atelectasis. CHEST 1 VIEW PORTABLE Final Result IMPRESSION: No appreciable change since the prior study. HEAD WITHOUT CONTRAST Final Result IMPRESSION: Unchanged hematoma with surrounding edema in the left temporooccipital region. No increasing mass effect or midline shift. CHEST 1 VIEW PORTABLE Final Result IMPRESSION: No significant change from the previous examination I personally viewed and interpreted these images and I have reviewed and approved this report. FOOT RIGHT 3+ VIEWS Final Result IMPRESSION: Limited examination as above without acute osseous abnormality. Possible debridement site along the posterior superior calcaneal margin. CHEST 1 VIEW PORTABLE Final Result IMPRESSION: No major change, see above. HEAD WITHOUT CONTRAST Final Result IMPRESSION: Unchanged hematoma with surrounding edema in the left temporal occipital lobes Electronically Signed By: Annamarie Del Castillo M.D., [facility] on 10/18/2024 10:13 AM XR CHEST 1 VIEW PORTABLE Final Result IMPRESSION: Pulmonary edema is stable to worse compared to prior. I personally viewed and interpreted these images and I have reviewed and approved this report. CARDIOGRAM Final Result CT HEAD WITHOUT CONTRAST Final Result IMPRESSION: Mild increased edema surrounding the hemorrhage with 3 mm of rightward midline shift. Examination is otherwise not significant changed. CHEST 1 VIEW PORTABLE Final Result IMPRESSION: See above ANGIO BRAIN/NECK Final Result IMPRESSION: \\ 1. Examination is equivocal for mid/distal left posterior cerebral artery occlusion (5/144). Artifact from venous contamination and vessel tortuosity limits characterization, and this may reflect vessel bifurcation. As such, presence of infarct with hemorrhagic conversion is not definitive, and underlying mass would be difficult to exclude on the basis of CT alone. MRI with and without contrast is advised to aid characterization, to include MR angiography to more convincingly assess patency of the left posterior cerebral artery. I, Catherine Cornejo MD have discussed the critical finding/s of possible left MEASUREMENT PSYCHOLOGIST occlusion with Kristen Ramon MD on 10/16/2024 8:57 PM. I personally viewed and interpreted these images and I have reviewed and approved this report. STROKE HEAD-STROKE ALERT ONLY Final Result IMPRESSION: 1. 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 2. Trace interventricular hemorrhage. 3. Localized mass effect without significant midline shift, herniation, hydrocephalus. Pulmonary results were discussed with Kristen Ramon MD at 8:57 PM on October 16, 2024. I personally viewed and interpreted these images and I have reviewed and approved this report. HEAD WITHOUT CONTRAST (Results Pending) MEDICATIONS amLODIPine 10 mg Oral Daily aspirin 81 mg Oral Daily Atorvastatin 40 mg Oral QHS carveDILOL 3.125 mg Oral Q12H enoxaparin 30 mg Subcutaneous Q12HNS Fluconazole 400 mg Oral Daily furOSEmide 20 mg Oral Daily Gabapentin 800 mg Oral TID insulin glargine 28 Units Subcutaneous Q24H Insulin lispro Subcutaneous 4x daily w/meals, HS Losartan 50 mg Oral Daily meropenem 1 g Intravenous Q8HNS Multivitamin w/ minerals (THERAPEUTIC-M) 1 tablet Oral Daily Polyethylene glycol 17 g Oral Q12H ProSource No Carb 1 Package Oral TID Senna 8.6 mg Oral Q12H vancomycin 750 mg Intravenous Q12HNS Cosigned by Jing Joshi MD at 10/29/2024 2:30 PM EDT Associated attestation - Jing Joshi MD - 10/29/2024 2:30 PM EDT Attending Physician Note (GC) I interviewed and examined this patient with the DISTRIBUTION FIELD ENGINEER. I reviewed the history and exam detailed in the note. I agree with the medical decision making with the following comment(s): Likely left temporalinfarct with hemorrhagic conversion in context of AF while apixaban was held for a podiatric procedure. Deficits improving. Plan to restart apixaban 3 weeks out from onset, 11/06. * Susanne Goyal - 10/28/2024 3:13 PM EDT Care Management Progress Note Preadmission Screen - Level 1 has been completed in the Healthcare Electronic Notification System for discharge. Susanne Goyal Care Management Clinical Implementation Specialist * NASH Duval - 10/28/2024 12:27 PM EDT Placement Plan Expected Discharge Date: 10/31/2024 Referred Level of Care: SNF Barriers: Medical stability, Transportation Current Referrals and Status 1. [facility] - Accepted/Selected Received confirmation from Brandon at [facility] that they can accept and are aware of pt's IV antibiotic needs. Pt not ready for discharge today (awaiting final Endo recs). CM integration lead set up transport for Tuesday at 10am via [facility] (no transport available on Tuesday). Updated team. PRANAV Finley Pipefitter *Please note that I am a float social scientist and that I may not cover the same service everyday. Please call the main Social Work office at for up to date coverage. For Social Work assistance for the weekend, please contact for assistance as needed (8:00am - 4:30pm): BAS: [phone] Bautista: [phone] Rasheed: [phone] Ross/MICU/PCU Jing: [phone] * Susanne Goyal - 10/28/2024 12:25 PM EDT Care Management Progress Note Transportation for discharge arranged Mode of Transfer: (P) BLS Name of Discharge Transport Company: (P) [facility] ETA: (P) 10/30/2024 @10:00am Pick-up from [facility]10[facility] 1078/A Destination [facility] [address] [place] [address] Susanne Goyal Care Management Clinical Implementation Specialist * Elizabeth Bettencourt MD - 10/28/2024 7:11 AM EDT I have seen and examined the patient with the team today. I have personally reviewed all the imaging studies, laboratory data and also reviewed the note. In addition I performed a physical examination; discussing the patient with the multi-disciplinary team and managing life sustaining therapies toprevent imminent clinical deterioration. I agree with the assessment and plan with the following additions : Lab Results Component Value Date LDLCALC 105 (H) 10/16/2024 LDLCALC 106 (H) 10/16/2024 Lab Results Component Value Date HGBA1C 10.5 (H) 10/16/2024 CBC: Lab Results Component Value Date WBC 8.37 10/26/2024 HGB 12.5 (L) 10/26/2024 HCT 37.7 (L) 10/26/2024 PLATELET 229 10/26/2024 MCV 80.7 10/26/2024 Chem 7: Lab Results Component Value Date SODIUM 136 10/26/2024 POTASSIUM 4.3 10/26/2024 CHLORIDE 99 10/26/2024 CO2 30 10/26/2024 GLUCOSE 179 10/28/2024 BUN 24 10/26/2024 CREATSERUM 0.63 (L) 10/26/2024 BUNCREARATIO 38 10/26/2024 OSMOLALITY 296 10/26/2024 GFR >90 10/26/2024 HCT:LTO ICH with Left MEASUREMENT PSYCHOLOGIST stroke CTA:mid/distal left posterior cerebral artery occlusion MRI: L MEASUREMENT PSYCHOLOGIST stroke with ICH transformation ECHO: EF okay Neuro Exam: MS: Awake. Language: Intact speech and language. Mild dysarthria CN: 2-12 intact. RFD, Motor: 5/5 all over on left and RHP Assessment: aLni Zaragoza is a 69 y.o. male with a past history of afib on Eliquis, T2DM who presents as hemorrhagic stroke alert from left MEASUREMENT PSYCHOLOGIST ischemic stroke with hemorrhagic transformation. Strokefrom Afib Plan: Resume ASA today. Switch to Ac in 3 weeks Can Dc ASA once on AC statin HTN: Aim normotension. Coreg resumed at low dose DM: Insulin RLE OM: Abx continue course per ID Continue statin PT/OT evaluation Risk factor modification and stroke education provided. DVT prophylaxis Start dispo planning Elizabeth Bettencourt MD [facility] Department of Neurology * Nestor Norton, SUPERVISOR NEWSPAPER DELIVERIES-PROGRAM COORDINATOR EXECUTIVE EDUCATION - 10/28/2024 5:24 AM EDT Neurovascular Stroke Service Intracerebral Hemorrhage Note IDENTIFYING INFORMATION Lani Zaragoza MR# [id number] 10/28/2024 HISTORY OF PRESENT ILLNESS Lani Zaragoza is a 69 y.o. male with PMH significant for A fib on Eliquis who was admitted to an outside hospital on 10/09/24 for chronic foot wound and is s/p debridement with podiatry. On the day hewas to be discharged to SNF on 10/16/24 he became acutely confused and aphasic. Stroke alert was called and CTH demonstrated L temporal hemorrage. His Eliquis was being held for surgery since 10/09. [facility]was [facility]. NIHSS 12 on arrival. LKW 1200 on 10/16. INTERVAL HISTORY 10/17: Brain MRI pending. Brother updated at bedside. 10/18: Repeat CT stable. Remains in NCCU. 10/19-10/22: NCCU admission, diuresis for respiratory management 10/22: Tx to NVSC service 10/23: Resume Losartan at 25mg daily (06/23 home dose) 10/24: Monitor BPs, increase losartan if SBPs above 140's this afternoon. Start Aspirin. 10/25: Dispo plan pending. Plan for repeat CTH tomorrow 10/26 for hemorrhage monitoring 10/26: Repeat CTH overnight stable. Patient endorses improvement in mood 10/27: JASE, resume coreg at reduced dose, chair position in bed 10/28: JASE, improved BP, discharge planning PHYSICAL EXAM Gen: awake, alert, NAD HEENT: normocephalic, no scalp lesions or tenderness, PERRLA, EOMI Neck: trachea midline CV: NSR on monitor Lungs: Respirations unlabored with equal chest rise Abd: soft, nontender, nondistended Extrem: Warm and well perfused, no cyanosis, right leg/foot dressing/eternal fixator in place but pt with dorsi/plantar flexion Neuro: Oriented x4, ODELL x4, sensation intact and equal bilaterally CN II - Right hemianopia CN II/III - PERRLA CN III/IV/ - EOMI CN V - Light touch to face intact in all 3 divisions CN VII - Facial movement intact and symmetrical bilaterally CN VIII - Hearing intact CN X - Cough present CN XI - muscular movement of shoulders and sternocleidomastoid muscles intact and equal bilaterally CN XII - midline protrusion of tongue MOTOR EXAMINATION: Right hemiparesis NIHSS Provider NIH Stroke Scale NIH Interval (Provider): daily NIH Level of Conciousness (Provider): 0 NIH LOC Questions (Provider): 0 NIH LOC Commands (Provider): 0 NIH Best Gaze (Provider): 0 NIH Visual (Provider): 1 NIH Facial Palsy (Provider): 0 NIH Left Arm Motor (Provider): 0 NIH Right Arm Motor (Provider): 0 NIH Left Leg Motor (Provider): 0 NIH Right Leg Motor (Provider): 1 NIH Limb Ataxia (Provider): 0 NIH Sensory (Provider): 0 NIH Best Language (Provider): 0 NIH Dysarthria (Provider): 0 NIH Extinction and Inattention (Provider): 1 NIH Total Score (Provider): 3 Intracerebral Hemorrhage Volume ICH Volume Date of Scan: 10/16/24 Time of Scan: 2046 (A) Maximum Length (cm): 4.5 cm (B) Perpendicular Length (cm): 3.6 cm (C) Number of Slices: 5 (C) Slice Thickness (cm) : 0.5 cm ICH Volume (ml) (Calculated Score): 20.25 Intracerebral Hemorrhage Score Intracerebral Hemorrhage (ICH) Scale [place] Coma Scale Points: 0-->GCS 13-15 Age>/=80: 0-->no Infratentorial Origin of Hemorrhage?: 0-->no ICH Volume >/= 30cm(3): 0-->no (less than 30cm(3)) Intraventricular Hemorrhage?: 1-->yes ICH Score (Calculated): 1 Score 30 Day Mortality following ICH 0 0% Mortality 1 13% Mortality 2 26% Mortality 3 72% Mortality 4 97% Mortality 5 100% Mortality ASSESSMENT AND PLAN Neuro: 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 No significant carotid or vertebral artery stenosis MRI brain w and w/o: Stable IPH/IVH. TTE: EF 60-65%; no PFO LDL 105, A1c 10.5 -Stroke Etiology (TOAST Criteria): Likely hemorrhagic transformation of recent R MEASUREMENT PSYCHOLOGIST infarct which is likely cardioembolic in nature -Antiplatelet plan: Resumed Aspirin 81 mg daily on 10/24 -Statin therapy: Atorvastatin 40 mg daily -Blood Pressure goal: SBP <160 -Continue to hold Eliquis for now, plan to resume 3 weeks post-bleed and a repeat head CT (11/06/2024) Hemorrhagic Stroke Core Measures -SCISS on admission 16 -Patient has been started on Mechanical (SCD's) and Pharmacological (SQ heparin) DVT prophylaxis will be started after stable HCT. -Antiplatelet therapy will be initiated 10/24 (PSD 7). -Anticoagulation therapy is indicated for AFib; plan to resume 3 weeks post stroke -Patients LDL 105 and HgbA1c 10.5 were checked -Dysphagia screening ordered, and will be completed prior to patient receiving oral intake. -Stroke education booklet has been provided both written and verbal education to the patient and family regarding hemorrhagic strokes. We have reviewed the patient's personal modifiable risk factors including: A fib as well as education on reducing these risk factors. -Patient is being assessed for Rehab by PT/OT/Speech and PM&R if indicated. AFib on Eliquis (POA) -Hold Eliquis in the setting of IPH with IVH -Restart date and interim initiation of ASA 3 weeks post stroke -Started ASA 10/24 -Eliquis in 3 weeks after a head CT -Resume Coreg at reduced dose 10/27 HTN (POA): SBP goal <160. Home regimen: Losartan 100mg daily, Amlodipine 5mg daily, Metoprolol 50mg BID -Current regimen: Amlodipine 10 mg daily -Losartan 50 mg daily, increased 10/23 -Coreg held 10/21 for bradycardia; resumed at reduced dose 10/27 DMII (POA) -Hold home Metformin -SSI while IP with 28u Glargine q24h Respiratory distress (Resolved) TODD -Pt with dyspnea at rest 10/17; BNP 962 -Pt spot-diuresed in NCCU, 20mg Lasix ordered daily at transfer for ongoing diuresis -Fluid goal -1L to -2L in NCCU; aim for euvolemia now -Nocturnal BiPAP Chronic R foot wound s/p debridement with Podiatry c/b osteomyelitis -Debridement with external fixator at OSH -Remain NWB on R foot -ID c/s for +multiorganism wound Cx: Rec transition Micafungin to fluconazole and cont Meropenem/Vancomycin for 6 weeks of total IV ATB therapy (Stop date: Meropenem/Vanc 11/22; Fluconazole 11/29) CENTRAL LINES: Central Line LDAs Active Central Line Access Devices Name Placement date Placement time Site Days PICC Line - Single Lumen 10/16/24224910/16/242249 -- 11 Central Line Indications: Medication Requiring Central Venous Administration : multiple, watermaster IV antibiotic therapy Can line/s be removed today? Select all that apply Line 1, no cannot be removed Dressing/s Clean/Dry/Intact?: Select all that apply Line 1, Dressing clean, dry, intact Nestor Norton, SUPERVISOR NEWSPAPER DELIVERIES-PROGRAM COORDINATOR EXECUTIVE EDUCATION 10/28/2024 9:43 AM VITAL SIGNS Temp: [97.8 F (36.6 C)-99.1 F (37.3 C)] 97.8 F (36.6 C) Pulse (Heart Rate): [52-74] 74 Resp Rate: [18-20] 20 BP: (125-142)/(57-80) 131/65 O2 Sat (%): [94 %-97 %] 96 % IMAGING/DIAGNOSTIC STUDIES CT HEAD WITHOUT CONTRAST Final Result IMPRESSION: Interval decreased density of the hemorrhagic area involving the left temporal and occipital lobes. The extent of the surrounding vasogenic edema and the associated mass effect appear unchanged. CHEST 1 VIEW PORTABLE Final Result IMPRESSION: Improved bibasilar pleural effusions and associated atelectasis. I personally viewed and interpreted these images and I have reviewed and approved this report. BRAIN WITHOUT CONTRAST Final Result IMPRESSION: Grossly stable parenchymal hemorrhage with surrounding edema centered in the left temporooccipital region, which could relate to hemorrhagic transformation of recent left MEASUREMENT PSYCHOLOGIST territory infarct. No progressive mass effect. Stable small volume of intraventricular extension of hemorrhage. CHEST 1 VIEW PORTABLE Final Result IMPRESSION: Persistent opacification in the lung bases obscuring the hemidiaphragms consistent with small effusions and atelectasis. CHEST 1 VIEW PORTABLE Final Result IMPRESSION: No appreciable change since the prior study. HEAD WITHOUT CONTRAST Final Result IMPRESSION: Unchanged hematoma with surrounding edema in the left temporooccipital region. No increasing mass effect or midline shift. CHEST 1 VIEW PORTABLE Final Result IMPRESSION: No significant change from the previous examination I personally viewed and interpreted these images and I have reviewed and approved this report. FOOT RIGHT 3+ VIEWS Final Result IMPRESSION: Limited examination as above without acute osseous abnormality. Possible debridement site along the posterior superior calcaneal margin. CHEST 1 VIEW PORTABLE Final Result IMPRESSION: No major change, see above. HEAD WITHOUT CONTRAST Final Result IMPRESSION: Unchanged hematoma with surrounding edema in the left temporal occipital lobes Electronically Signed By: Annamarie Del Castillo M.D., [facility] on 10/18/2024 10:13 AM XR CHEST 1 VIEW PORTABLE Final Result IMPRESSION: Pulmonary edema is stable to worse compared to prior. I personally viewed and interpreted these images and I have reviewed and approved this report. CARDIOGRAM Final Result CT HEAD WITHOUT CONTRAST Final Result IMPRESSION: Mild increased edema surrounding the hemorrhage with 3 mm of rightward midline shift. Examination is otherwise not significant changed. CHEST 1 VIEW PORTABLE Final Result IMPRESSION: See above ANGIO BRAIN/NECK Final Result IMPRESSION: \\ 1. Examination is equivocal for mid/distal left posterior cerebral artery occlusion (5/144). Artifact from venous contamination and vessel tortuosity limits characterization, and this may reflect vessel bifurcation. As such, presence of infarct with hemorrhagic conversion is not definitive, and underlying mass would be difficult to exclude on the basis of CT alone. MRI with and without contrast is advised to aid characterization, to include MR angiography to more convincingly assess patency of the left posterior cerebral artery. I, Catherine Cornejo, MD have discussed the critical finding/s of possible left MEASUREMENT PSYCHOLOGIST occlusion with Kristen Ramon MD on 10/16/2024 8:57 PM. I personally viewed and interpreted these images and I have reviewed and approved this report. STROKE HEAD-STROKE ALERT ONLY Final Result IMPRESSION: 1. 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 2. Trace interventricular hemorrhage. 3. Localized mass effect without significant midline shift, herniation, hydrocephalus. Pulmonary results were discussed with Kristen Ramon MD at 8:57 PM on October 16, 2024. I personally viewed and interpreted these images and I have reviewed and approved this report. CATIONS amLODIPine 10 mg Oral Daily aspirin 81 mg Oral Daily Atorvastatin 40 mg Oral QHS carveDILOL 3.125 mg Oral Q12H enoxaparin 30 mg Subcutaneous Q12HNS Fluconazole 400 mg Oral Daily furOSEmide 20 mg Oral Daily Gabapentin 800 mg Oral TID insulin glargine 28 Units Subcutaneous Q24H Insulin lispro Subcutaneous 4x daily w/meals, HS Losartan 50 mg Oral Daily meropenem 1 g Intravenous Q8HNS Multivitamin w/ minerals (THERAPEUTIC-M) 1 tablet Oral Daily Polyethylene glycol 17 g Oral Q12H ProSource No Carb 1 Package Oral TID Senna 8.6 mg Oral Q12H vancomycin 750 mg Intravenous Q12HNS Cosigned by Elizabeth Bettencourt MD at 10/28/2024 12:44 PM EDT * Anu Yancey [facility] - 10/27/2024 11:57 AM EDT Department of Pharmacy Pharmacokinetics Progress Note Patient: Lani Zaragoza Room/Bed: [facility]/A Assessment and Plan: Based upon renal function, intake/output, and drug level assessment and interpretation (steady state), no changes to vancomycin dose or dosing interval are indicated at this time. A pharmacist will continue to follow and order drug levels and adjust dosing as clinically appropriate. Vancomycin regimen at time of level: Vancomycin 750 mg IV every 12 hours Last Dose Administered: Dose: Date: Time: 750 mg 10/26 2337 Levels: 15.6 mcg/mL drawn at 1122 on 10/27. Level was a trough. Most Recent Labs: WBC Count Date Value Ref Range Status 10/26/2024 8.37 3.73 - 10.10 K/uL Final BUN Date Value Ref Range Status 10/26/2024 24 7 - 25 mg/dL Final Creatinine Date Value Ref Range Status 10/26/2024 0.63 (L) 0.70 - 1.30 mg/dL Final I/O last 3 completed shifts: In: 3746.7 [P.O.:1040; I.V.:640.9; IV Piggyback:2065.8] Out: 700 [Urine:700] Estimated Creatinine Clearance: 169 mL/min (A) (by C-G formula based on SCr of 0.63 mg/dL (L)). Ongoing Vancomycin Monitoring: The following trough goal is recommended for ongoing therapy based on the suspected/confirmed source of infection and today s calculations: Goal trough range: 15-20 mcg/mL If therapy is to be continued after discharge, please contact pharmacy for appropriate dosing. Please feel free to contact me with any further questions. Name: Anu Yancey RPH Phone: [phone] Date/Time: 10/27/2024 11:57 AM * [facility] - 10/27/2024 10:12 AM EDT Placement Plan Expected Discharge Date: 10/29/2024 Referred Level of Care: SNF Barriers: Accepting facility, choice, medical readiness, transportation. Current Referrals and Status [facility] Available 2. [facility] Available/selected 3. [facility] Available 4. [facility] Viewed 5. [facility] Unavailable Spoke with pt's sister/OSCAR Green, who reports that she spoke with the admissions team at the [facility] yesterday and they advised her that she would need to obtain a sole stapler welt in [place] andhave them come to [facility] to do a financial POA with the pt. Norma reports that is not a feasible plan at this time. Norma reports having also gone to the pt's home to attempt to obtain his financialdocumentation for the Medicaid application, but she is unsure if all the needed documentation was there. Norma reports that she and the pt's son/secondary HCPOA have discussed placement options and prefer placement at [facility] at this time. SW left message for admissions at [facility] to confirm choice and inquire when they can accept the pt for admission. ALVARADO will follow. PRANAV Finley Pipefitter *Please note that I am a float social scientist and that I may not cover the same service everyday. Please call the main Social Work office at for up to date coverage. For Social Work assistance for the weekend, please contact for assistance as needed (8:00am - 4:30pm): [facility]: [phone] Bautista: [phone] Rasheed: [phone] Francisco/MICU/PCU Jing: [phone] * Elizabeth Bettencourt MD - 10/27/2024 7:13 AM EDT I have seen and examined the patient with the team today. I have personally reviewed all the imaging studies, laboratory data and also reviewed the note. In addition I performed a physical examination; discussing the patient with the multi-disciplinary team and managing life sustaining therapies toprevent imminent clinical deterioration. I agree with the assessment and plan with the following additions : Lab Results Component Value Date LDLCALC 105 (H) 10/16/2024 LDLCALC 106 (H) 10/16/2024 Lab Results Component Value Date HGBA1C 10.5 (H) 10/16/2024 CBC: Lab Results Component Value Date WBC 8.37 10/26/2024 HGB 12.5 (L) 10/26/2024 HCT 37.7 (L) 10/26/2024 PLATELET 229 10/26/2024 MCV 80.7 10/26/2024 Chem 7: Lab Results Component Value Date SODIUM 136 10/26/2024 POTASSIUM 4.3 10/26/2024 CHLORIDE 99 10/26/2024 CO2 30 10/26/2024 GLUCOSE 193 (H) 10/27/2024 BUN 24 10/26/2024 CREATSERUM 0.63 (L) 10/26/2024 BUNCREARATIO 38 10/26/2024 OSMOLALITY 296 10/26/2024 GFR >90 10/26/2024 HCT:LTO ICH with Left MEASUREMENT PSYCHOLOGIST stroke CTA:mid/distal left posterior cerebral artery occlusion MRI: L MEASUREMENT PSYCHOLOGIST stroke with ICH transformation ECHO: EF okay Neuro Exam: MS: Awake. Language: Intact speech and language. Mild dysarthria Knows he is in hospital, tells the year, his disease condition, follows simple and complex commands CN: 2-12 intact. RFD, Motor: 5/5 all over on left and RHP Assessment: Lani Zaragoza is a 69 y.o. male with a past history of afib on Eliquis, T2DM who presents as hemorrhagic stroke alert from left MEASUREMENT PSYCHOLOGIST ischemic stroke with hemorrhagic transformation. Strokefrom Afib Plan: Resume ASA today. Switch to Ac in 3 weeks Can Dc ASA once on AC statin HTN: Aim normotension. Cored resumed at low dose DM: Insulin RLE OM: Abx continue course per ID Continue statin PT/OT evaluation Risk factor modification and stroke education provided. DVT prophylaxis Start dispo planning Elizabeth Bettencourt MD [facility] Department of Neurology * Nestor Norton, SUPERVISOR NEWSPAPER DELIVERIES-PROGRAM COORDINATOR EXECUTIVE EDUCATION - 10/27/2024 5:16 AM EDT Neurovascular Stroke Service Intracerebral Hemorrhage Note IDENTIFYING INFORMATION Lani Zaragoza MR# [id number] 10/27/2024 HISTORY OF PRESENT ILLNESS Lani Zaragoza is a 69 y.o. male with PMH significant for A fib on Eliquis who was admitted to an outside hospital on 10/09/24 for chronic foot wound and is s/p debridement with podiatry. On the day bryons to be discharged to SNF on 10/16/24 he became acutely confused and aphasic. Stroke alert was called and CTH demonstrated L temporal hemorrage. His Eliquis was being held for surgery since 10/09. [facility]. NIHSS 12 on arrival. LKW 1200 on 10/16. INTERVAL HISTORY 10/17: Brain MRI pending. Brother updated at bedside. 10/18: Repeat CT stable. Remains in NCCU. 10/19-10/22: NCCU admission, diuresis for respiratory management 10/22: Tx to NVSC service 10/23: Resume Losartan at 25mg daily (06/23 home dose) 10/24: Monitor BPs, increase losartan if SBPs above 140's this afternoon. Start Aspirin. 10/25: Dispo plan pending. Plan for repeat CTH tomorrow 10/26 for hemorrhage monitoring 10/26: Repeat CTH overnight stable. Patient endorses improvement in mood 10/27: JASE, resume coreg at reduced dose, chair position in bed PHYSICAL EXAM Gen: awake, alert, NAD HEENT: normocephalic, no scalp lesions or tenderness, PERRLA, EOMI Neck: trachea midline CV: NSR on monitor Lungs: Respirations unlabored with equal chest rise Abd: soft, nontender, nondistended Extrem: Warm and well perfused, no cyanosis, right leg/foot dressing/eternal fixator in place but pt with dorsi/plantar flexion Neuro: Oriented x4, ODELL x4, sensation intact and equal bilaterally CN II - Right hemianopia CN II/III - PERRLA CN III/IV/ - EOMI CN V - Light touch to face intact in all 3 divisions CN VII - Facial movement intact and symmetrical bilaterally CN VIII - Hearing intact CN X - Cough present CN XI - muscular movement of shoulders and sternocleidomastoid muscles intact and equal bilaterally CN XII - midline protrusion of tongue MOTOR EXAMINATION: Right hemiparesis NIHSS Provider NIH Stroke Scale NIH Interval (Provider): daily NIH Level of Conciousness (Provider): 0 NIH LOC Questions (Provider): 0 NIH LOC Commands (Provider): 0 NIH Best Gaze (Provider): 0 NIH Visual (Provider): 1 NIH Facial Palsy (Provider): 0 NIH Left Arm Motor (Provider): 0 NIH Right Arm Motor (Provider): 0 NIH Left Leg Motor (Provider): 0 NIH Right Leg Motor (Provider): 1 NIH Limb Ataxia (Provider): 0 NIH Sensory (Provider): 0 NIH Best Language (Provider): 0 NIH Dysarthria (Provider): 0 NIH Extinction and Inattention (Provider): 1 NIH Total Score (Provider): 3 Intracerebral Hemorrhage Volume ICH Volume Date of Scan: 10/16/24 Time of Scan: 2046 (A) Maximum Length (cm): 4.5 cm (B) Perpendicular Length (cm): 3.6 cm (C) Number of Slices: 5 (C) Slice Thickness (cm) : 0.5 cm ICH Volume (ml) (Calculated Score): 20.25 Intracerebral Hemorrhage Score Intracerebral Hemorrhage (ICH) Scale Parvez Coma Scale Points: 0-->GCS 13-15 Age>/=80: 0-->no Infratentorial Origin of Hemorrhage?: 0-->no ICH Volume >/= 30cm(3): 0-->no (less than 30cm(3)) Intraventricular Hemorrhage?: 1-->yes ICH Score (Calculated): 1 Score 30 Day Mortality following ICH 0 0% Mortality 1 13% Mortality 2 26% Mortality 3 72% Mortality 4 97% Mortality 5 100% Mortality ASSESSMENT AND PLAN Neuro: 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 No significant carotid or vertebral artery stenosis MRI brain w and w/o: Stable IPH/IVH. TTE: EF 60-65%; no PFO LDL 105, A1c 10.5 -Stroke Etiology (TOAST Criteria): Likely hemorrhagic transformation of recent R MEASUREMENT PSYCHOLOGIST infarct which is likely cardioembolic in nature -Antiplatelet plan: Resumed Aspirin 81 mg daily on 10/24 -Statin therapy: Atorvastatin 40 mg daily -Blood Pressure goal: SBP <160 -Continue to hold Eliquis for now, plan to resume 3 weeks post-bleed and a repeat head CT (11/06/2024) Hemorrhagic Stroke Core Measures -NHISS on admission 16 -Patient has been started on Mechanical (SCD's) and Pharmacological (SQ heparin) DVT prophylaxis will be started after stable HCT. -Antiplatelet therapy will be initiated 10/24 (PSD 7). -Anticoagulation therapy is indicated for AFib; plan to resume 3 weeks post stroke -Patients LDL 105 and HgbA1c 10.5 were checked -Dysphagia screening ordered, and will be completed prior to patient receiving oral intake. -Stroke education booklet has been provided both written and verbal education to the patient and family regarding hemorrhagic strokes. We have reviewed the patient's personal modifiable risk factors including: A fib as well as education on reducing these risk factors. -Patient is being assessed for Rehab by PT/OT/Speech and PM&R if indicated. AFib on Eliquis (POA) -Hold Eliquis in the setting of IPH with IVH -Restart date and interim initiation of ASA 3 weeks post stroke -Started ASA 10/24 -Eliquis in 3 weeks after a head CT -Resume Coreg at reduced dose 10/27 HTN (POA): SBP goal <160. 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 c/b osteomyelitis -Debridement with external fixator at OSH -Remain NWB on R foot -ID c/s for +multiorganism wound Cx: Rec transition Micafungin to fluconazole and cont Meropenem/Vancomycin for 6 weeks of total IV ATB therapy (Stop date: Meropenem/Vanc 11/22; Fluconazole 11/29) Respiratory distress (Resolved) TODD -Pt with dyspnea at rest 10/17; BNP 962 -Pt spot-diuresed in NCCU, 20mg Lasix ordered daily at transfer for ongoing diuresis -Fluid goal -1L to -2L in NCCU; aim for euvolemia now -Nocturnal BiPAP CENTRAL LINES: Central Line LDAs Active Central Line Access Devices Name Placement date Placement time Site Days PICC Line - Single Lumen 10/16/24224910/16/242249 -- 10 Central Line Indications: Medication Requiring Central Venous Administration : multiple, fci IV antibiotic therapy Can line/s be removed today? Select all that apply Line 1, no cannot be removed Dressing/s Clean/Dry/Intact?: Select all that apply Line 1, Dressing clean, dry, intact Nestor Norton, SUPERVISOR NEWSPAPER DELIVERIES-PROGRAM COORDINATOR EXECUTIVE EDUCATION 10/27/2024 9:13 AM VITAL SIGNS Temp: [97.7 F (36.5 C)-98.7 F (37.1 C)] 98.7 F (37.1 C) Pulse (Heart Rate): [62-76] 74 Resp Rate: [16-22] 16 BP: (130-158)/(61-73) 158/73 O2 Sat (%): [96 %-99 %] 98 % IMAGING/DIAGNOSTIC STUDIES CT HEAD WITHOUT CONTRAST Final Result IMPRESSION: Interval decreased density of the hemorrhagic area involving the left temporal and occipital lobes. The extent of the surrounding vasogenic edema and the associated mass effect appear unchanged. CHEST 1 VIEW PORTABLE Final Result IMPRESSION: Improved bibasilar pleural effusions and associated atelectasis. I personally viewed and interpreted these images and I have reviewed and approved this report. BRAIN WITHOUT CONTRAST Final Result IMPRESSION: Grossly stable parenchymal hemorrhage with surrounding edema centered in the left temporooccipital region, which could relate to hemorrhagic transformation of recent left MEASUREMENT PSYCHOLOGIST territory infarct. No progressive mass effect. Stable small volume of intraventricular extension of hemorrhage. CHEST 1 VIEW PORTABLE Final Result IMPRESSION: Persistent opacification in the lung bases obscuring the hemidiaphragms consistent with small effusions and atelectasis. CHEST 1 VIEW PORTABLE Final Result IMPRESSION: No appreciable change since the prior study. HEAD WITHOUT CONTRAST Final Result IMPRESSION: Unchanged hematoma with surrounding edema in the left temporooccipital region. No increasing mass effect or midline shift. CHEST 1 VIEW PORTABLE Final Result IMPRESSION: No significant change from the previous examination I personally viewed and interpreted these images and I have reviewed and approved this report. FOOT RIGHT 3+ VIEWS Final Result IMPRESSION: Limited examination as above without acute osseous abnormality. Possible debridement site along the posterior superior calcaneal margin. CHEST 1 VIEW PORTABLE Final Result IMPRESSION: No major change, see above. HEAD WITHOUT CONTRAST Final Result IMPRESSION: Unchanged hematoma with surrounding edema in the left temporal occipital lobes Electronically Signed By: Annamarie Del Castillo M.D., [facility] on 10/18/2024 10:13 AM XR CHEST 1 VIEW PORTABLE Final Result IMPRESSION: Pulmonary edema is stable to worse compared to prior. I personally viewed and interpreted these images and I have reviewed and approved this report. CARDIOGRAM Final Result CT HEAD WITHOUT CONTRAST Final Result IMPRESSION: Mild increased edema surrounding the hemorrhage with 3 mm of rightward midline shift. Examination is otherwise not significant changed. CHEST 1 VIEW PORTABLE Final Result IMPRESSION: See above ANGIO BRAIN/NECK Final Result IMPRESSION: \\ 1. Examination is equivocal for mid/distal left posterior cerebral artery occlusion (5/144). Artifact from venous contamination and vessel tortuosity limits characterization, and this may reflect vessel bifurcation. As such, presence of infarct with hemorrhagic conversion is not definitive, and underlying mass would be difficult to exclude on the basis of CT alone. MRI with and without contrast is advised to aid characterization, to include MR angiography to more convincingly assess patency of the left posterior cerebral artery. I, Catherine Cornejo MD have discussed the critical finding/s of possible left MEASUREMENT PSYCHOLOGIST occlusion with Kristen Ramon MD on 10/16/2024 8:57 PM. I personally viewed and interpreted these images and I have reviewed and approved this report. STROKE HEAD-STROKE ALERT ONLY Final Result IMPRESSION: 1. 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 2. Trace interventricular hemorrhage. 3. Localized mass effect without significant midline shift, herniation, hydrocephalus. Pulmonary results were discussed with Kristen Ramon MD at 8:57 PM on October 16, 2024. I personally viewed and interpreted these images and I have reviewed and approved this report. CATIONS amLODIPine 10 mg Oral Daily aspirin 81 mg Oral Daily Atorvastatin 40 mg Oral QHS carveDILOL 3.125 mg Oral Q12H enoxaparin 30 mg Subcutaneous Q12HNS Fluconazole 400 mg Oral Daily furOSEmide 20 mg Oral Daily Gabapentin 800 mg Oral TID insulin glargine 28 Units Subcutaneous Q24H Insulin lispro Subcutaneous 4x daily w/meals, HS Losartan 50 mg Oral Daily meropenem 1 g Intravenous Q8HNS Multivitamin w/ minerals (THERAPEUTIC-M) 1 tablet Oral Daily Polyethylene glycol 17 g Oral Q12H ProSource No Carb 1 Package Oral TID Senna 8.6 mg Oral Q12H vancomycin 750 mg Intravenous Q12HNS Cosigned by Elizabeth Bettencourt MD at 10/27/2024 2:41 PM EDT * Viky Baer, Limited Permit Meza - 10/26/2024 5:24 PM EDT Scoring Tool and Orders for Airway Clearance Therapy Points Therapy Frequency 0 - 7 PEP DC or DYLAN 8 - 16 VIBRATORY PEP TID 17 - 24 METANEB, VEST, IPV, PDP Q6 25 - 32 METANEB, VEST, IPV, PDP Q4 >32 NOTIFY TEAM NOTIFY TEAM Plan of Care TIPeña RICHARDSON. Viky Baer Limited Permit Meza 10/26/2024 5:25 PM * ROSALINDA Lugo - 10/26/2024 9:34 AM EDT Placement Plan Expected Discharge Date: 10/29/2024 Referred Level of Care: SNF Barriers: Accepting facility, choice, medical readiness, transportation. Current Referrals and Status [facility] Available 2. [facility] Available 3. [facility] Available 4. [facility] Viewed [facility]. [facility] Unavailable SW left for admissions at the [facility] requesting final determination regarding accepting patient,as patient is currently with appropriate capacity to assist with Medicaid application and/or complete a financial POA per primary team. MISTY Mcdaniels, ROSALINDA Advanced Quality Engineer Available by Secure Chat * Elizabeth Bettencourt MD - 10/26/2024 7:16 AM EDT I have seen and examined the patient with the team today. I have personally reviewed all the imaging studies, laboratory data and also reviewed the note. In addition I performed a physical examination; discussing the patient with the multi-disciplinary team and managing life sustaining therapies toprevent imminent clinical deterioration. I agree with the assessment and plan with the following additions : Lab Results Component Value Date LDLCALC 105 (H) 10/16/2024 LDLCALC 106 (H) 10/16/2024 Lab Results Component Value Date HGBA1C 10.5 (H) 10/16/2024 CBC: Lab Results Component Value Date WBC 8.37 10/26/2024 HGB 12.5 (L) 10/26/2024 HCT 37.7 (L) 10/26/2024 PLATELET 229 10/26/2024 MCV 80.7 10/26/2024 Chem 7: Lab Results Component Value Date SODIUM 136 10/26/2024 POTASSIUM 4.3 10/26/2024 CHLORIDE 99 10/26/2024 CO2 30 10/26/2024 GLUCOSE 189 (H) 10/26/2024 BUN 24 10/26/2024 CREATSERUM 0.63 (L) 10/26/2024 BUNCREARATIO 38 10/26/2024 OSMOLALITY 296 10/26/2024 GFR >90 10/26/2024 HCT:LTO ICH with Left MEASUREMENT PSYCHOLOGIST stroke CTA:mid/distal left posterior cerebral artery occlusion MRI: L MEASUREMENT PSYCHOLOGIST stroke with ICH transformation ECHO: EF okay Neuro Exam: MS: Awake. Language: Intact speech and language. Mild dysarthria Knows he is in hospital, tells the year, his disease condition, follows simple and complex commands CN: 2-12 intact. RFD, Motor: 5/5 all over on left and RHP Assessment: Lani Zaragoza is a 69 y.o. male with a past history of afib on Eliquis, T2DM who presents as hemorrhagic stroke alert from left MEASUREMENT PSYCHOLOGIST ischemic stroke with hemorrhagic transformation. Strokefrom Afib Plan: Resume ASA today. Switch to Ac in 3 weeks Can Dc ASA once on AC statin HTN: Aim normotension DM: Insulin RLE OM: Abx continue course per ID Continue statin PT/OT evaluation Risk factor modification and stroke education provided. DVT prophylaxis Start dispo planning Elizabeth Bettencourt MD [facility] Department of Neurology * Roz Alejandre, SUPERVISOR NEWSPAPER DELIVERIES-PROGRAM COORDINATOR EXECUTIVE EDUCATION - 10/26/2024 6:00 AM EDT Neurovascular Stroke Service Intracerebral Hemorrhage Note IDENTIFYING INFORMATION Lani Zaragoza MR# [id number] 10/26/2024 HISTORY OF PRESENT ILLNESS Lani Zaragoza is a 69 y.o. male with PMH significant for A fib on Eliquis who was admitted to an outside hospital on 10/09/24 for chronic foot wound and is s/p debridement with podiatry. On the day hewas to be discharged to SNF on 10/16/24 he became acutely confused and aphasic. Stroke alert was called and CTH demonstrated L temporal hemorrage. His Eliquis was being held for surgery since 10/09. [facility]. NIHSS 12 on arrival. LKW 1200 on 10/16. INTERVAL HISTORY 10/17: Brain MRI pending. Brother updated at bedside. 10/18: Repeat CT stable. Remains in NCCU. 10/19-10/22: NCCU admission, diuresis for respiratory management 10/22: Tx to NVSC service 10/23: Resume Losartan at 25mg daily (06/23 home dose) 10/24: Monitor BPs, increase losartan if SBPs above 140's this afternoon. Start Aspirin. 10/25: Dispo plan pending. Plan for repeat CTH tomorrow 10/26 for hemorrhage monitoring 10/26: Repeat CTH overnight stable. Patient endorses improvement in mood PHYSICAL EXAM Gen: awake, alert, NAD HEENT: normocephalic, no scalp lesions or tenderness, PERRLA, EOMI Neck: trachea midline CV: NSR on monitor Lungs: Respirations unlabored with equal chest rise Abd: soft, nontender, nondistended Extrem: Warm and well perfused, no cyanosis, right leg/foot dressing/eternal fixator in place but pt with dorsi/plantar flexion Neuro: Oriented x4, ODELL x4, sensation intact and equal bilaterally CN II - Right hemianopia CN II/III - PERRLA CN III/IV/ - EOMI CN V - Light touch to face intact in all 3 divisions CN VII - Facial movement intact and symmetrical bilaterally CN VIII - Hearing intact CN X - Cough present CN XI - muscular movement of shoulders and sternocleidomastoid muscles intact and equal bilaterally CN XII - midline protrusion of tongue MOTOR EXAMINATION: Right hemiparesis NIHSS Provider NIH Stroke Scale NIH Interval (Provider): daily NIH Level of Conciousness (Provider): 0 NIH LOC Questions (Provider): 0 NIH LOC Commands (Provider): 0 NIH Best Gaze (Provider): 0 NIH Visual (Provider): 1 NIH Facial Palsy (Provider): 0 NIH Left Arm Motor (Provider): 0 NIH Right Arm Motor (Provider): 0 NIH Left Leg Motor (Provider): 0 NIH Right Leg Motor (Provider): 1 NIH Limb Ataxia (Provider): 0 NIH Sensory (Provider): 0 NIH Best Language (Provider): 0 NIH Dysarthria (Provider): 0 NIH Extinction and Inattention (Provider): 1 NIH Total Score (Provider): 3 Intracerebral Hemorrhage Volume ICH Volume Date of Scan: 10/16/24 Time of Scan: 2046 (A) Maximum Length (cm): 4.5 cm (B) Perpendicular Length (cm): 3.6 cm (C) Number of Slices: 5 (C) Slice Thickness (cm) : 0.5 cm ICH Volume (ml) (Calculated Score): 20.25 Intracerebral Hemorrhage Score Intracerebral Hemorrhage (ICH) Scale Parvez Coma Scale Points: 0-->GCS 13-15 Age>/=80: 0-->no Infratentorial Origin of Hemorrhage?: 0-->no ICH Volume >/= 30cm(3): 0-->no (less than 30cm(3)) Intraventricular Hemorrhage?: 1-->yes ICH Score (Calculated): 1 Score 30 Day Mortality following ICH 0 0% Mortality 1 13% Mortality 2 26% Mortality 3 72% Mortality 4 97% Mortality 5 100% Mortality ASSESSMENT AND PLAN Neuro: 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 No significant carotid or vertebral artery stenosis MRI brain w and w/o: Stable IPH/IVH. TTE: EF 60-65%; no PFO LDL 105, A1c 10.5 -Stroke Etiology (TOAST Criteria): Likely hemorrhagic transformation of recent R MEASUREMENT PSYCHOLOGIST infarct which is likely cardioembolic in nature -Antiplatelet plan: Resumed Aspirin 81 mg daily on 10/24 -Statin therapy: Atorvastatin 40 mg daily -Blood Pressure goal: SBP <160 -Continue to hold Eliquis for now, plan to resume 3 weeks post-bleed and a repeat head CT (11/06/2024) Hemorrhagic Stroke Core Measures -NHISS on admission 16 -Patient has been started on Mechanical (SCD's) and Pharmacological (SQ heparin) DVT prophylaxis will be started after stable HCT. -Antiplatelet therapy will be initiated 10/24 (PSD 7). -Anticoagulation therapy is indicated for AFib; plan to resume 3 weeks post stroke -Patients LDL 105 and HgbA1c 10.5 were checked -Dysphagia screening ordered, and will be completed prior to patient receiving oral intake. -Stroke education booklet has been provided both written and verbal education to the patient and family regarding hemorrhagic strokes. We have reviewed the patient's personal modifiable risk factors including: A fib as well as education on reducing these risk factors. -Patient is being assessed for Rehab by PT/OT/Speech and PM&R if indicated. AFib on Eliquis (POA) -Hold Eliquis in the setting of IPH with IVH -Restart date and interim initiation of ASA 3 weeks post stroke -Started ASA 5/7 -Eliquis in 3 weeks after a head CT -Resume Coreg as tolerated by HR HTN (POA): SBP goal <160. 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 c/b osteomyelitis -Debridement with external fixator at OSH -Remain NWB on R foot -ID c/s for +multiorganism wound Cx: Rec transition Micafungin to fluconazole and cont Meropenem/Vancomycin for 6 weeks of total IV ATB therapy (Stop date: Meropenem/Vanc 11/22; Fluconazole 11/29) Respiratory distress (Resolved) TODD -Pt with dyspnea at rest 10/17; BNP 962 -Pt spot-diuresed in NCCU, 20mg Lasix ordered daily at transfer for ongoing diuresis -Fluid goal -1L to -2L in NCCU; aim for euvolemia now -Nocturnal BiPAP CENTRAL LINES: Central Line LDAs Active Central Line Access Devices Name Placement date Placement time Site Days PICC Line - Single Lumen 10/16/24224910/16/242249 -- 9 Central Line Indications: Medication Requiring Central Venous Administration : multiple, watermaster IV antibiotic therapy Can line/s be removed today? Select all that apply Line 1, no cannot be removed Dressing/s Clean/Dry/Intact?: Select all that apply Line 1, Dressing clean, dry, intact Rzo Alejandre APRN-PROGRAM COORDINATOR EXECUTIVE EDUCATION 10/26/2024 1:36 PM VITAL SIGNS Temp: [97 F (36.1 C)-98.7 F (37.1 C)] 98.6 F (37 C) Pulse (Heart Rate): [63-80] 76 Resp Rate: [15-22] 18 BP: (134-161)/(63-89) 137/89 O2 Sat (%): [94 %-98 %] 98 % Weight: [166.9 kg (368 lb)] 166.9 kg (368 lb) IMAGING/DIAGNOSTIC STUDIES CT HEAD WITHOUT CONTRAST Final Result IMPRESSION: Interval decreased density of the hemorrhagic area involving the left temporal and occipital lobes. The extent of the surrounding vasogenic edema and the associated mass effect appear unchanged. CHEST 1 VIEW PORTABLE Final Result IMPRESSION: Improved bibasilar pleural effusions and associated atelectasis. I personally viewed and interpreted these images and I have reviewed and approved this report. BRAIN WITHOUT CONTRAST Final Result IMPRESSION: Grossly stable parenchymal hemorrhage with surrounding edema centered in the left temporooccipital region, which could relate to hemorrhagic transformation of recent left MEASUREMENT PSYCHOLOGIST territory infarct. No progressive mass effect. Stable small volume of intraventricular extension of hemorrhage. CHEST 1 VIEW PORTABLE Final Result IMPRESSION: Persistent opacification in the lung bases obscuring the hemidiaphragms consistent with small effusions and atelectasis. CHEST 1 VIEW PORTABLE Final Result IMPRESSION: No appreciable change since the prior study. HEAD WITHOUT CONTRAST Final Result IMPRESSION: Unchanged hematoma with surrounding edema in the left temporooccipital region. No increasing mass effect or midline shift. CHEST 1 VIEW PORTABLE Final Result IMPRESSION: No significant change from the previous examination I personally viewed and interpreted these images and I have reviewed and approved this report. FOOT RIGHT 3+ VIEWS Final Result IMPRESSION: Limited examination as above without acute osseous abnormality. Possible debridement site along the posterior superior calcaneal margin. CHEST 1 VIEW PORTABLE Final Result IMPRESSION: No major change, see above. HEAD WITHOUT CONTRAST Final Result IMPRESSION: Unchanged hematoma with surrounding edema in the left temporal occipital lobes Electronically Signed By: Annamarie Del Castillo M.D., [facility] on 10/18/2024 10:13 AM XR CHEST 1 VIEW PORTABLE Final Result IMPRESSION: Pulmonary edema is stable to worse compared to prior. I personally viewed and interpreted these images and I have reviewed and approved this report. CARDIOGRAM Final Result CT HEAD WITHOUT CONTRAST Final Result IMPRESSION: Mild increased edema surrounding the hemorrhage with 3 mm of rightward midline shift. Examination is otherwise not significant changed. CHEST 1 VIEW PORTABLE Final Result IMPRESSION: See above ANGIO BRAIN/NECK Final Result IMPRESSION: \\ 1. Examination is equivocal for mid/distal left posterior cerebral artery occlusion (5/144). Artifact from venous contamination and vessel tortuosity limits characterization, and this may reflect vessel bifurcation. As such, presence of infarct with hemorrhagic conversion is not definitive, and underlying mass would be difficult to exclude on the basis of CT alone. MRI with and without contrast is advised to aid characterization, to include MR angiography to more convincingly assess patency of the left posterior cerebral artery. I, Catherine Cornejo MD have discussed the critical finding/s of possible left MEASUREMENT PSYCHOLOGIST occlusion with Kristen Ramon MD on 10/16/2024 8:57 PM. I personally viewed and interpreted these images and I have reviewed and approved this report. STROKE HEAD-STROKE ALERT ONLY Final Result IMPRESSION: 1. 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 2. Trace interventricular hemorrhage. 3. Localized mass effect without significant midline shift, herniation, hydrocephalus. Pulmonary results were discussed with Kristen Ramon MD at 8:57 PM on October 16, 2024. I personally viewed and interpreted these images and I have reviewed and approved this report. CATIONS amLODIPine 10 mg Oral Daily aspirin 81 mg Oral Daily Atorvastatin 40 mg Oral QHS [Held by provider] carveDILOL 6.25 mg Oral Q12H enoxaparin 30 mg Subcutaneous Q12HNS Fluconazole 400 mg Oral Daily furOSEmide 20 mg Oral Daily Gabapentin 800 mg Oral TID HYDROmorphone 0.5 mg Intravenous Once insulin glargine 28 Units Subcutaneous Q24H Insulin lispro Subcutaneous 4x daily w/meals, HS Losartan 50 mg Oral Daily meropenem 1 g Intravenous Q8HNS Multivitamin w/ minerals (THERAPEUTIC-M) 1 tablet Oral Daily Polyethylene glycol 17 g Oral Q12H ProSource No Carb 1 Package Oral TID Senna 8.6 mg Oral Q12H vancomycin 750 mg Intravenous Q12HNS Cosigned by Elizabeth Bettencourt MD at 10/26/2024 4:49 PM EDT * ROSALINDA Lugo - 10/25/2024 3:56 PM EDT Placement Plan Expected Discharge Date: Referred Level of Care: SNF Barriers: Accepting facility, choice, medical readiness, transportation. Current Referrals and Status [facility] Available 2. [facility] Available 3. [facility] Available 4. [facility] Viewed 5. [facility] Unavailable Still awaiting response from the [facility] at this time. SW updated patient at bedside who said he maybe agreeable to searching for a new facility if necessary. Patient agreeable to SW following up in the AM. Gordon Boston MSW, TITLE PROCESSOR Advanced Quality Engineer Available by Secure Chat * Jose Page Jing, GEARMAN - 10/25/2024 1:58 PM EDT Acute Care Speech Language Pathology Treatment Best mode of Communication: Spoken language Communication Strategies: eliminate distractions Discharge Recommendations: Based on the below outcome measures/assessment score(s) and GEARMAN clinicaljudgment, discharge destination recommendation is: Nursing Home Facility Barriers to discharge home: 1:1 assist needed for IADL's including medication management and finances Supporting factors for discharge setting: Impaired cognitive skills limiting independence (Impairedreading skills) Acute GEARMAN Outcomes Tracking Communicate basic wants and needs?: yes Demo insight/appreciation of deficits?: yes Complete basic problem solving?: yes Current therapy frequency recommendation in acute: Speech/Lang/Cog Therapy Frequency: 3 times a week Clinical Impression: Lani Zaragoza presents with fluent aphasia (anomic aphasia) given s/p L MEASUREMENT PSYCHOLOGIST CVA, L temporal ICH andconcerns for cognitive communication impairment, as well as concern for vision deficits vs true linguistic deficits. Patient states he has needed updated glasses prescription for a while, although reports worsening vision post stroke. Patient with insight into inaccuracy of phrases read aloud. Patient also stating "I forget what kind of dog it's called" when discussing his sister's pets, but immediately identified the dog breed. No other perceived instances of anomia throughout entirety of session. Reports c/o being "slower" in conversation, consistent with ongoing delayed processing throughout. Of note, patient also complaints of "forgetting" information frequently, noted deficits in orientation, working memory and delayed recall tasks, although underlying aphasia possibly impacting reliability of cognitive assessment. Recommend continue ongoing GEARMAN services to assist in patient's abilities to return to [facility]. Subjective information: Patient reclined in bed, agreeable to work with therapist. States he feels he should remember the date, but cannot Pain: General Pain Documentation (Adult, OB, Peds) Presence of Pain: denies pain/discomfort Presence of Pain Score (Auto-calculated): 0 DVPRS (Defense and Veterans Pain Rating Scale) DVPRS: Rest: 0- no pain DVPRS: Activity: 0- no pain Precautions: Patient Safety Communication Prior to Visit: Nursing Lines/Tubes/Drains (Rehab Status): Telemetry Existing Precautions/Restrictions: fall Respiratory Status: O2 Sat (%): [96 %-100 %] 98 % O2 Device: Nocturnal CPAP/BIPAP Flow (L/min): [0] 0 Oxygen Concentration (%): [21] 21 Acute GEARMAN Goals Plan of Care by EVETTE Carballo at 10/25/2024 1:58 PM Version 1 of 1 Problem: GEARMAN - Language Goal: Word Retrieval Strategies for Conversation - Patient will state and/or demonstrate understanding of trained strategies targeting anomia with no more than min cues to use strategies during functional conversation to reduce communication breakdowns Outcome: Ongoing Tx: Reviewed word finding strategies during anomia during conversation. GEARMAN educated regarding circumlocution strategies to assist with word finding and communication partner understanding. Educated regarding describing what the item looks like, what you do with it, where you find it, etc. Continuegoal. Goal: Reading Comprehension Command Following - Patient will independently follow written 1-step commands with 70% accuracy to increase written receptive language and reading comprehension skills. Outcome: Ongoing Tx: Patient attempted x2 single step written commands. Patient stating "that doesn't make sense" after reading aloud incorrect words. Deferred further trials. Problem: GEARMAN - Cognition Goal: Metacognition - Patient will identify at least x2-3 deficits related to medical condition andhow deficits will impact ability to return home with fading cues to improve safety and independence Outcome: Progressing Tx: Patient able to state that he was in the hospital for a foot surgery and then "apparently I hada stroke". Patient states he is now having difficulties with "motor skills on on his right side" and that he can't remember things very well. States he is not able to get up and walk on his own. Patient Education/Instruction Learners: Patient Education provided: Role of this discipline, Communication strategies Teaching method: Verbal Education/Instruction Learner response: Needs review Learning preferences: Auditory Plan for next session: 10/25: good candidate; ongoing reading/writing, anomia strategies GEARMAN Outcomes: GEARMAN Outcomes / Standardized Measures Score The Orientation Log (O-Log) & The Cognitive Log (Cog-Log) Orientation Log City: correct spontaneously or upon first free recall attempt Kind of Place: correct spontaneously or upon first free recall attempt Name of Hospital: correct spontaneously or upon first free recall attempt Month: correct spontaneously or upon first free recall attempt Date: correct upon logical cueing Year: incorrect despite cueing, inappropriate response or unable to respond. Day of Week: correct spontaneously or upon first free recall attempt Clock Time: correct upon multiple choice or phonemic cueing Etiology / Event: correct spontaneously or upon first free recall attempt Pathology Deficits: correct spontaneously or upon first free recall attempt Total Score: 24 Cognitive Log Date: points for a correct response with a logical cue Time: point for a correct response to multiple choice Name of Hospital: points given for a spontaneous correct response Repeat Address: repeated accurately three times 20-1: more than two errors (Patient counting backward, and then forward and skipping around numbers) Months Reversed: 3 or more errors 30 Seconds: 20-24 seconds or 36-40 seconds [id number]: three correct repetitions Go / No-Go: correct response on each trial Address Recall: no recall Total Score: 17 Speech Language Pathologist: EVETTE Carballo Time In: 1358 Time Out: 1414 Total Visit Time: 16 minutes Total Treatment Time (skilled, billable minutes): 16 minutes Non-billable assistance during session: NA Assisted by during session: NA PPE used during patient interaction: gloves Patient location/status at end of session: bed with head of bed elevated Patient alarms at end of session: none altered Needs in reach. GEARMAN Evaluation and Treatment Time Speech Therapy - Individual [id number]: 16 Upon discontinuation of Acute Care Speech Therapy Services or patient discharge from the hospital this note represents the current Speech Therapy Discharge Summary * Kathy Avila RD - 10/25/2024 8:18 AM EDT NUTRITION ASSESSMENT Nutrition Recommendations and Plan of Care: Continue with Carb Controlled Diet as tolerated. Will send ProSource NoCarb TID (60 kcal, 15 g protein each) to aid in meeting kcal and protein needs. Start MVI with minerals. Monitor/encourage PO intake. Monitor GI function, skin integrity, weight changes, and labs. RD to continue to follow. Per A/P, Lani Zaragoza is a 69 y.o. male with a past history of afib on Eliquis, T2DM who presents as hemorrhagic stroke alert from left MEASUREMENT PSYCHOLOGIST ischemic stroke with hemorrhagic transformation. Stroke from Afib. Of note, recently admitted to OSH 10/09 for chronic foot wound s/p debridement with podiatry. Discharged to SNF 10/16 and admitted to [facility] d/t stroke. Past History No past medical history on file. No past surgical history on file. Nutrition History/Assessment: Pt referred to RD by DTR/DTR student d/t poor PO intake and wound. Pt initially not on diet this admission 2/2 requiring BiPAP (NPO x 2 days). Diet advanced to soft and bite sized with thin liquids 10/18 and carb controlled with regular texture solids 10/19. Attempted to visit pt at bedside this afternoon. Pt unavailable, with GEARMAN. Will continue to follow and follow-up as able/per protocol. Nutrition Focused Physical Exam: Nutrition Focused Physical Exam Completed?: deferred Reason For Deferral: pt unavailable, with GEARMAN % PO Intake per docflowsheets: Average of 34% Breakfast Lunch Dinner Snacks 10/18 --- --- --- --- /2 --- 50% 0% --- 5/3 75% 0% 75% --- 5/4 25% 25% 25% --- 5/5 --- 50% 50% --- 5/6 0% 25% 33% --- 5/7 50% 25% --- --- some PO intakes estimated via CHO cts. is allergic to penicillins. Current Diet Orders Procedures DIET CARB CONTROLLED 1:1 supervision with small snacks when BiPAP is OFF Standing Status: Standing Number of Occurrences: 1 Ht: 5' 9" Current Wt: 163 kg (359#) Admit Wt: (!) 172 kg (379 lb 3.1 oz) IBW: 72.7 kg (160#) %IBW: 224% BMI: 53.1 Weight History: Pt with potential significant 4.5% weight loss x 3 weeks 09/25- 10/16 (equivalent to ~1.5% x 1 week which is considered nutritionally significant). However, CBW may be more accurate than OSH wt 10/16 which would not indicate significant weight loss. Wt Readings from Last 20 Encounters: 10/16/24 (!) 163 kg (359 lb 5.6 oz) 10/16/24 157.3 kg - OSH 04/08/25 164.7 kg - OSH 05/23/23 168.5 kg - OSH meds reviewed: Scheduled: Reviewed, includes Lasix, insulin, Miralax, senna Continuous: none Labs reviewed: Sodium Date Value Ref Range Status 10/25/2024 136 135 - 145 mmol/L Final Potassium Date Value Ref Range Status 10/25/2024 4.0 3.5 - 5.0 mmol/L Final Chloride Date Value Ref Range Status 10/25/2024 97 (L) 98 - 108 mmol/L Final CO2 Date Value Ref Range Status 10/25/2024 31 21 - 31 mmol/L Final BUN Date Value Ref Range Status 10/25/2024 20 7 - 25 mg/dL Final Creatinine Date Value Ref Range Status 10/25/2024 0.61 (L) 0.70 - 1.30 mg/dL Final Magnesium Date Value Ref Range Status 10/22/2024 2.0 1.6 - 2.6 mg/dL Final Phosphorous Date Value Ref Range Status 10/22/2024 3.3 2.2 - 4.6 mg/dL Final Albumin Date Value Ref Range Status 10/16/2024 3.5 3.5 - 5.0 g/dL Final Glucose (POC Device) Date Value Ref Range Status 10/25/2024 207 (H) Nonfasting Glucose: 70-179 mg/dL Final Hemoglobin A1C HPLC Date Value Ref Range Status 10/16/2024 10.5 (H) 4.7 - 5.6 % Final WBC/Hgb/Hct/Plts: 8.14/12.5/37.7/244 (10/25 534) Lab Results Component Value Date GLUCOSE 207 (H) 10/25/2024 GLUCOSE 147 10/25/2024 GLUCOSE 150 10/25/2024 GLUCOSE 152 10/24/2024 GLUCOSE 160 10/24/2024 GLUCOSE 173 10/24/2024 Lab Results Component Value Date HGBA1C 10.5 (H) 10/16/2024 GI: Last bm: 10/22 (Type 5-- soft blobs) Enteral access: none Skin: Gaetano Score: 12 Edema- 2+(mild): L/R leg, L/R arm, generalized Active Wounds: Wound Pressure Injury 10/16/24 Right Heel (9) reviewed photos of leg wound-- wound healing well based on photos I/O: -18.2L net since admit Cognitive Status: confused, Ox3 Estimated Nutrition Needs: Weight Used: 73 kg (IBW) EEN: 1384-9719 kcal/day (30-35 kcal/kg) EPN: 110-146 g/day (1.5-2 g/kg) EFN: 2190 mL/day (30 mL/kg) Malnutrition Statement: Does the patient meet criteria for malnutrition: Unable to assess *Based on [employer] and [employer] Indicators to Diagnose Malnutrition (AAIM) criteria (2012) Kathy Avila, , RD, LD, CSNC Pager #[phone] * Elizabeth Bettencourt MD - 10/25/2024 7:41 AM EDT I have seen and examined the patient with the team today. I have personally reviewed all the imaging studies, laboratory data and also reviewed the note. In addition I performed a physical examination; discussing the patient with the multi-disciplinary team and managing life sustaining therapies toprevent imminent clinical deterioration. I agree with the assessment and plan with the following additions : Lab Results Component Value Date LDLCALC 105 (H) 10/16/2024 LDLCALC 106 (H) 10/16/2024 Lab Results Component Value Date HGBA1C 10.5 (H) 10/16/2024 CBC: Lab Results Component Value Date WBC 8.14 10/25/2024 HGB 12.5 (L) 10/25/2024 HCT 37.7 (L) 10/25/2024 PLATELET 244 10/25/2024 MCV 79.7 10/25/2024 Chem 7: Lab Results Component Value Date SODIUM 136 10/25/2024 POTASSIUM 4.0 10/25/2024 CHLORIDE 97 (L) 10/25/2024 CO2 31 10/25/2024 GLUCOSE 147 10/25/2024 BUN 20 10/25/2024 CREATSERUM 0.61 (L) 10/25/2024 BUNCREARATIO 33 10/25/2024 OSMOLALITY 291 10/25/2024 GFR >90 10/25/2024 HCT:LTO ICH with Left MEASUREMENT PSYCHOLOGIST stroke CTA:mid/distal left posterior cerebral artery occlusion MRI: L MEASUREMENT PSYCHOLOGIST stroke with ICH transformation ECHO: EF okay Neuro Exam: MS: Awake. Language: Intact speech and language. Mild dysarthria Knows he is in hospital, tells the year, his disease condition, follows simple and complex commands CN: 2-12 intact. RFD, Motor: 5/5 all over on left and RHP Assessment: Lani Zaragoza is a 69 y.o. male with a past history of afib on Eliquis, T2DM who presents as hemorrhagic stroke alert from left MEASUREMENT PSYCHOLOGIST ischemic stroke with hemorrhagic transformation. Strokefrom Afib Plan: Resume ASA today. Switch to Ac in 2-[address] before starting. Can Dc ASA once on AC CT in am statin HTN: Aim normotension DM: Insulin RLE OM: Abx continue course per ID Continue statin PT/OT evaluation Risk factor modification and stroke education provided. DVT prophylaxis Start dispo planning Elizabeth Bettencourt MD [facility] Department of Neurology * Roz Alejandre, SUPERVISOR NEWSPAPER DELIVERIES-PROGRAM COORDINATOR EXECUTIVE EDUCATION - 10/25/2024 7:17 AM EDT Neurovascular Stroke Service Intracerebral Hemorrhage Note IDENTIFYING INFORMATION Lani Zaragoza MR# [id number] 10/25/2024 HISTORY OF PRESENT ILLNESS Lani Zaragoza is a 69 y.o. male with PMH significant for A fib on Eliquis who was admitted to an outside hospital on 10/09/24 for chronic foot wound and is s/p debridement with podiatry. On the day hewas to be discharged to SNF on 10/16/24 he became acutely confused and aphasic. Stroke alert was called and CTH demonstrated L temporal hemorrage. His Eliquis was being held for surgery since 10/09. [facility]. NIHSS 12 on arrival. LKW 1200 on 10/16. INTERVAL HISTORY 10/17: Brain MRI pending. Brother updated at bedside. 10/18: Repeat CT stable. Remains in NCCU. 10/19-10/22: NCCU admission, diuresis for respiratory management 10/22: Tx to NVSC service 10/23: Resume Losartan at 25mg daily (06/23 home dose) 10/24: Monitor BPs, increase losartan if SBPs above 140's this afternoon. Start Aspirin. 10/25: Dispo plan pending. Plan for repeat CTH tomorrow 10/26 for hemorrhage monitoring PHYSICAL EXAM Gen: awake, alert, NAD HEENT: normocephalic, no scalp lesions or tenderness, PERRLA, EOMI Neck: trachea midline CV: NSR on monitor Lungs: Respirations unlabored with equal chest rise Abd: soft, nontender, nondistended Extrem: Warm and well perfused, no cyanosis, right leg/foot dressing/eternal fixator in place but pt with dorsi/plantar flexion Neuro: Oriented x4, ODELL x4, sensation intact and equal bilaterally CN II - Right hemianopia CN II/III - PERRLA CN III/IV/ - EOMI CN V - Light touch to face intact in all 3 divisions CN VII - Facial movement intact and symmetrical bilaterally CN VIII - Hearing intact CN X - Cough present CN XI - muscular movement of shoulders and sternocleidomastoid muscles intact and equal bilaterally CN XII - midline protrusion of tongue MOTOR EXAMINATION: Right hemiparesis NIHSS Provider NIH Stroke Scale NIH Interval (Provider): daily NIH Level of Conciousness (Provider): 0 NIH LOC Questions (Provider): 0 NIH LOC Commands (Provider): 0 NIH Best Gaze (Provider): 0 NIH Visual (Provider): 1 NIH Facial Palsy (Provider): 0 NIH Left Arm Motor (Provider): 0 NIH Right Arm Motor (Provider): 0 NIH Left Leg Motor (Provider): 0 NIH Right Leg Motor (Provider): 1 NIH Limb Ataxia (Provider): 0 NIH Sensory (Provider): 0 NIH Best Language (Provider): 0 NIH Dysarthria (Provider): 0 NIH Extinction and Inattention (Provider): 1 NIH Total Score (Provider): 3 Intracerebral Hemorrhage Volume ICH Volume Date of Scan: 10/16/24 Time of Scan: 2046 (A) Maximum Length (cm): 4.5 cm (B) Perpendicular Length (cm): 3.6 cm (C) Number of Slices: 5 (C) Slice Thickness (cm) : 0.5 cm ICH Volume (ml) (Calculated Score): 20.25 Intracerebral Hemorrhage Score Intracerebral Hemorrhage (ICH) Scale [place] Coma Scale Points: 0-->GCS 13-15 Age>/=80: 0-->no Infratentorial Origin of Hemorrhage?: 0-->no ICH Volume >/= 30cm(3): 0-->no (less than 30cm(3)) Intraventricular Hemorrhage?: 1-->yes ICH Score (Calculated): 1 Score 30 Day Mortality following ICH 0 0% Mortality 1 13% Mortality 2 26% Mortality 3 72% Mortality 4 97% Mortality 5 100% Mortality ASSESSMENT AND PLAN Neuro: 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 No significant carotid or vertebral artery stenosis MRI brain w and w/o: Stable IPH/IVH. TTE: EF 60-65%; no PFO LDL 105, A1c 10.5 -Stroke Etiology (TOAST Criteria): Likely hemorrhagic transformation of recent R MEASUREMENT PSYCHOLOGIST infarct which is likely cardioembolic in nature -Antiplatelet plan: Resumed Aspirin 81 mg daily on 10/24 -Statin therapy: Atorvastatin 40 mg daily -Blood Pressure goal: SBP <160 -Continue to hold Eliquis for now, plan to resume 3 weeks post-bleed and a repeat head CT (11/06/2024) Hemorrhagic Stroke Core Measures -SCISS on admission 16 -Patient has been started on Mechanical (SCD's) and Pharmacological (SQ heparin) DVT prophylaxis will be started after stable HCT. -Antiplatelet therapy will be initiated 10/24 (PSD 7). -Anticoagulation therapy is indicated for AFib; plan to resume 3 weeks post stroke -Patients LDL 105 and HgbA1c 10.5 were checked -Dysphagia screening ordered, and will be completed prior to patient receiving oral intake. -Stroke education booklet has been provided both written and verbal education to the patient and family regarding hemorrhagic strokes. We have reviewed the patient's personal modifiable risk factors including: A fib as well as education on reducing these risk factors. -Patient is being assessed for Rehab by PT/OT/Speech and PM&R if indicated. AFib on Eliquis (POA) -Hold Eliquis in the setting of IPH with IVH -Restart date and interim initiation of ASA 3 weeks post stroke -Started ASA 10/24 -Eliquis in 3 weeks after a head CT -Resume Coreg as tolerated by HR HTN (POA): SBP goal <160. 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 c/b osteomyelitis -Debridement with external fixator at OSH -Remain NWB on R foot -ID c/s for +multiorganism wound Cx: Rec transition Micafungin to fluconazole and cont Meropenem/Vancomycin for 6 weeks of total IV ATB therapy (Stop date: Meropenem/Vanc 11/22; Fluconazole 11/29) Respiratory distress (Resolved) TODD -Pt with dyspnea at rest 10/17; BNP 962 -Pt spot-diuresed in NCCU, 20mg Lasix ordered daily at transfer for ongoing diuresis -Fluid goal -1L to -2L in NCCU; aim for euvolemia now -Nocturnal BiPAP CENTRAL LINES: Central Line LDAs Active Central Line Access Devices Name Placement date Placement time Site Days PICC Line - Single Lumen 10/16/24224910/16/242249 -- 8 Central Line Indications: Medication Requiring Central Venous Administration : multiple, watermaster IV antibiotic therapy Can line/s be removed today? Select all that apply Line 1, no cannot be removed Dressing/s Clean/Dry/Intact?: Select all that apply Line 1, Dressing clean, dry, intact Roz Alejandre, JENNIFER-PROGRAM COORDINATOR EXECUTIVE EDUCATION 10/25/2024 11:22 AM VITAL SIGNS Temp: [98 F (36.7 C)-98.3 F (36.8 C)] 98 F (36.7 C) Pulse (Heart Rate): [61-83] 80 Resp Rate: [12-23] 20 BP: (124-160)/(61-72) 124/61 O2 Sat (%): [96 %-100 %] 97 % IMAGING/DIAGNOSTIC STUDIES XR CHEST 1 VIEW PORTABLE Final Result IMPRESSION: Improved bibasilar pleural effusions and associated atelectasis. I personally viewed and interpreted these images and I have reviewed and approved this report. BRAIN WITHOUT CONTRAST Final Result IMPRESSION: Grossly stable parenchymal hemorrhage with surrounding edema centered in the left temporooccipital region, which could relate to hemorrhagic transformation of recent left MEASUREMENT PSYCHOLOGIST territory infarct. No progressive mass effect. Stable small volume of intraventricular extension of hemorrhage. CHEST 1 VIEW PORTABLE Final Result IMPRESSION: Persistent opacification in the lung bases obscuring the hemidiaphragms consistent with small effusions and atelectasis. CHEST 1 VIEW PORTABLE Final Result IMPRESSION: No appreciable change since the prior study. HEAD WITHOUT CONTRAST Final Result IMPRESSION: Unchanged hematoma with surrounding edema in the left temporooccipital region. No increasing mass effect or midline shift. CHEST 1 VIEW PORTABLE Final Result IMPRESSION: No significant change from the previous examination I personally viewed and interpreted these images and I have reviewed and approved this report. FOOT RIGHT 3+ VIEWS Final Result IMPRESSION: Limited examination as above without acute osseous abnormality. Possible debridement site along the posterior superior calcaneal margin. CHEST 1 VIEW PORTABLE Final Result IMPRESSION: No major change, see above. HEAD WITHOUT CONTRAST Final Result IMPRESSION: Unchanged hematoma with surrounding edema in the left temporal occipital lobes Electronically Signed By: Annamarie Del Castillo M.D., [facility] on 10/18/2024 10:13 AM XR CHEST 1 VIEW PORTABLE Final Result IMPRESSION: Pulmonary edema is stable to worse compared to prior. I personally viewed and interpreted these images and I have reviewed and approved this report. CARDIOGRAM Final Result CT HEAD WITHOUT CONTRAST Final Result IMPRESSION: Mild increased edema surrounding the hemorrhage with 3 mm of rightward midline shift. Examination is otherwise not significant changed. CHEST 1 VIEW PORTABLE Final Result IMPRESSION: See above ANGIO BRAIN/NECK Final Result IMPRESSION: \\ 1. Examination is equivocal for mid/distal left posterior cerebral artery occlusion (5/144). Artifact from venous contamination and vessel tortuosity limits characterization, and this may reflect vessel bifurcation. As such, presence of infarct with hemorrhagic conversion is not definitive, and underlying mass would be difficult to exclude on the basis of CT alone. MRI with and without contrast is advised to aid characterization, to include MR angiography to more convincingly assess patency of the left posterior cerebral artery. I, Catherine Cornejo MD have discussed the critical finding/s of possible left MEASUREMENT PSYCHOLOGIST occlusion with Kristen Ramon MD on 10/16/2024 8:57 PM. I personally viewed and interpreted these images and I have reviewed and approved this report. STROKE HEAD-STROKE ALERT ONLY Final Result IMPRESSION: 1. 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 2. Trace interventricular hemorrhage. 3. Localized mass effect without significant midline shift, herniation, hydrocephalus. Pulmonary results were discussed with Kristen Ramon MD at 8:57 PM on October 16, 2024. I personally viewed and interpreted these images and I have reviewed and approved this report. CATIONS amLODIPine 10 mg Oral Daily aspirin 81 mg Oral Daily Atorvastatin 40 mg Oral QHS [Held by provider] carveDILOL 6.25 mg Oral Q12H enoxaparin 30 mg Subcutaneous Q12HNS Fluconazole 400 mg Oral Daily furOSEmide 20 mg Oral Daily Gabapentin 600 mg Oral TID insulin glargine 28 Units Subcutaneous Q24H Insulin lispro Subcutaneous 4x daily w/meals, HS Losartan 50 mg Oral Daily meropenem 1 g Intravenous Q8HNS Polyethylene glycol 17 g Oral Q12H Senna 8.6 mg Oral Q12H vancomycin 750 mg Intravenous Q12HNS Cosigned by Elizabeth Bettencourt MD at 10/25/2024 3:22 PM EDT * Kassie Lagunas - 10/24/2024 7:30 PM EDT Introduced self and role of the after school program teacher to patient. Provided emotional and spiritual support and the patient responded by sharing their experience and discussed the following:family, kinza, concerns, support, losses, and work. Patient encouraged to request a after school program teacher as needed. Chaplains are available 24 hours a day and 7 days a week. For urgent matters in [facility], please page [phone]. If the request is not urgent, please enter a consult. Consults are responded to within 24 hours. Kassie Lagunas, PhD, MDiv, MA, ROCK Auto Job Estimator 10/24/24 193 Clinical Encounter Type Visited With Patient Visit Type Consult Crisis Visit Spiritual/Emotional Distress Pastoral Time Spent 45 min Referral IHIS Consult/Referral Spiritual Assessment Spiritual Observation Spirituality helpful Emotional Observation Anxiety;Difficulty Coping;Grief/Loss;Overwhelmed;Anger/frustration;Fear/Afraid;Sad Hope Observation Hopeless Support Observation Strong support;By Family;By Friend Interventions Provided Active listening;Supportive presence Facilitated Verbalization of feelings;Sharing of life story;Sharing hopes & fears;Experiencing life change;Identifying support system;Identifying Sources of spiritual well-being Explored Kinza issues;Meaning of illness;Expectations;Family issues;Coping mechanism;Treatment decisions Automobile Technician Education Automobile Technician Service Available Yes Educated Patient Topic Coping Skills;Stress management Outcomes Patient Outcomes Reduced distress;Progressed towards acceptance Plan of Care Continue Visiting PRN Referred to RN;Social Work/PCRM * ROSALINDA Lugo - 10/24/2024 3:17 PM EDT Placement Plan Expected Discharge Date: Referred Level of Care: SNF Barriers: Accepting facility, choice, medical readiness, transportation. Current Referrals and Status [facility] Available 2. [facility] Available 3. [facility] Available 4. [facility] Viewed 5. [facility] Unavailable SW spoke with patient's sister and [facility] [employer] by phone to discuss [facility] update to SW they would not be able to accept without completed Medicaid, guardianship, or financial POA. Norma told SW that she was able to get patient's house keys and retrieved a number of financial documents this weekend that would be needed for the Medicaid application and she planned to review them this evening to match them against a checklist given by the facility. Norma asked that SW ask theNF to re-review patient's situation in light of this information. Norma was agreeable to SW sending SNF referrals as backup to [facility] while waiting for a response. SW to follow up with SNFs and Norma tomorrow. MISTY Mcdaniels, TITLE PROCESSOR Advanced Quality Engineer Available by Secure Chat * Rebecca Lantigua, PT - 10/24/2024 11:19 AM EDT Acute Physical Therapy Treatment Prior Gross Functional Mobility: independent Current AM-PAC score(s): CURRENT AM-PAC Mobility Raw Score: 6 Based on the above AM-PAC score(s) and PT clinical judgment, patient is a good candidate for discharge to Nursing Home Facility Barriers to discharge home: Patient needs assistance with functional mobility Mobility equipment available at home: manual wheelchair, front-wheeled walker, straight cane ADL equipment available at home: shower chair, grab bars Equipment needed for discharge: to be determined Current therapy frequency recommendation in acute: PT Therapy Frequency: 5 times a week Activity Recommendations for outside of rehab session: shira lift Precautions and Weightbearing Status: Existing Precautions/Restrictions: fall Patient Safety Communication Prior to Visit: Nursing Current brace/orthoses: (ex-fix) Right Lower Extremity : non-weight bearing Subjective: pt was agreeable to participate with some encouragement Pain: General Pain Documentation (Adult, OB, Peds) Presence of Pain: reports pain/discomfort Pain Location: leg, left, leg, right Objective/Observation: Vitals/Vitals Responses to Treatment: WFL O2 Device: nasal cannula Flow (L/min): 1 Cognition Overall Cognitive Status: Impaired Arousal/Alertness: Delayed responses to stimuli Orientation Level: Oriented to person, Oriented to place, Oriented to time Following Commands: Follows one step commands with repetition, Follows one step commands with increased time Safety Judgment: Decreased awareness of need for assistance, Decreased awareness of need for safety Cognition Comments: delayed procressing Extremity Assessments: See PT Evaluation flowsheet for Extremity Measurement updates. Skin and Edema: Balance: Sitting Balance Static Sitting-Level of Assistance: Standby Dynamic Sitting-Level of Assistance: (contact guard/min) Skilled Rationale: Positioning, Sequencing, Hand placement, Verbal cues Sitting Balance Skilled Intervention/Details: Pt completed EOB sitting to increase core strength and endurance, cues for placement of left LE on floor for improved positioning. Pt completed EOB sitting with intermittent cues for anterior weight shifting Mobility Assessment/Intervention: Rolling/Turning Mobility [place] Level: Rolling/Turning: maximum assist (25% patient effort) Physical Assist: Rolling/Turnin person assist Bed Features/Set-up: Rolling/Turning: Flat Skilled Rationale: Positioning, Sequencing, Hand placement, Verbal cues Skilled Intervention/Details: Rolling/Turning: pt completed bilateral rolling in bed for linen change and hygiene care Supine to Sit Mobility [place] Level: Supine->Sit: maximum assist (25% patient effort) Physical Assist: Supine->Sit: 2 person assist Bed Features/Set-up: Supine->Sit: Head of bed elevated, Use of bed rail Skilled Rationale: Positioning, Sequencing Skilled Intervention/Details: Supine->Sit: pt completed supine to sit with step by step cues forsequencing Transfer Assessment/Intervention: Gait/Functional Mobility Assessment/Intervention: Stairs Assessment/Intervention: Outcome Score(s): CURRENT [facility] Basic Mobility Inpatient Short Form Turning over in bed: 1 - Total Assistance Moving from lying on back to sittin - Total Assistance Moving to and from bed to chair: 1 - Total Assistance Sitting/standing from chair: 1 - Total Assistance Walk in hospital room: 1 - Total Assistance Climbing 3-5 steps with a railin - Total Assistance CURRENT [facility] Mobility Raw Score: 6 CURRENT [facility] Mobility Functional Limitation: 100.00% Impaired in Basic Mobility Interventions: Intervention 1 Intervention Name: side scooting Sets/Reps/Duration: attempted side scooting EOB to progress transfer techniques due to patient NWB on rigth LE and unable to attempt standing. Completed side scooting with dependent assist, max cues and for sequencing and technique Assessment & Plan: Pt making good progress toward therapy goals, improved sitting balance Patient Instruction/Education this session: Learners: Patient Education provided: Activity outside of therapy, Discharge recommendations, Fall precautions Plan for next session: Continue to progress sitting balance, attempt slide board as patient progresses Acute PT Goals Plan of Care by Rebecca Lantigua PT at 10/24/2024 11:19 AM Version 1 of 1 Problem: PT - General Goals Goal: Supine <-> Sit Transfers - Patient will perform supine to/from sit transfers with moderate assistance and of 2 people and with use of hospital bed features in order to improve functional mobility and safety. Outcome: Progressing Goal: Sitting Endurance/Balance - Patient will perform seated balance tasks for 8 minutes with minimal assistance and bilateral UE support while maintaining trunk in midline Outcome: Progressing PT treatment consisted of the following to progress towards the above goal(s): PT Evaluation and Treatment Time Neuromuscular Re-Education Time Entry: 27 Treating Therapist: Rebecca Lantigua PT Additional Details: PT Co-Eval/Treatment Information Co-evaluation/co-treatment performed?: Yes, simultaneous billable skilled care was necessary due tomedical complexity and functional deficits Other discipline: OT Rationale for need to co-eval/treat: postural control Co-treatment goal focus: balance, mobility PPE used during patient interaction: gloves Patient location at end of session: bed with head of bed elevated Alarms on at end of session: RN aware, none altered Needs in reach. Time In: 931 Time Out: 958 Total Visit Time: 27 minutes Total Treatment Time (skilled, billable minutes): 27 minutes Upon discontinuation of Acute Care Physical Therapy Services or patient discharge from the hospitalthis note represents the current Physical Therapy Discharge Summary. * Cory Guzman APRN-MICHAEL - 10/24/2024 10:15 AM EDT Neurovascular Stroke Service Intracerebral Hemorrhage Note IDENTIFYING INFORMATION Lani Zaragoza MR# [id number] 10/24/2024 HISTORY OF PRESENT ILLNESS Lani Zaragoza is a 69 y.o. male with PMH significant for A fib on Eliquis who was admitted to an outside hospital on 10/09/24 for chronic foot wound and is s/p debridement with podiatry. On the day hewas to be discharged to SNF on 10/16/24 he became acutely confused and aphasic. Stroke alert was called and CTH demonstrated L temporal hemorrage. His Eliquis was being held for surgery since 10/09. [facility]was transferred to [facility]. NIHSS 12 on arrival. LKW 1200 on 10/16. INTERVAL HISTORY 10/17: Brain MRI pending. Brother updated at bedside. 10/18: Repeat CT stable. Remains in NCCU. 10/19-10/22: NCCU admission, diuresis for respiratory management 10/22: Tx to [facility] service 10/23: Resume Losartan at 25mg daily (06/23 home dose) 10/24: Monitor BPs, increase losartan if SBPs above 140's this afternoon. Start Aspirin. PHYSICAL EXAM Gen: awake, alert, NAD HEENT: normocephalic, no scalp lesions or tenderness, PERRLA, EOMI Neck: trachea midline CV: NSR on monitor Lungs: Respirations unlabored with equal chest rise Abd: soft, nontender, nondistended Extrem: Warm and well perfused, no cyanosis, right leg/foot dressing/eternal fixator in place but pt with dorsi/plantar flexion Neuro: Oriented x3, ODELL x4, sensation intact and equal bilaterally CN II - Right hemianopia CN II/III - PERRLA CN III/IV/ - EOMI CN V - Light touch to face intact in all 3 divisions CN VII - Facial movement intact and symmetrical bilaterally CN VIII - Hearing intact CN X - Cough present CN XI - muscular movement of shoulders and sternocleidomastoid muscles intact and equal bilaterally CN XII - midline protrusion of tongue MOTOR EXAMINATION: Right hemiparesis NIHSS Provider NIH Stroke Scale NIH Interval (Provider): daily NIH Level of Conciousness (Provider): 0 NIH LOC Questions (Provider): 1 NIH LOC Commands (Provider): 0 NIH Best Gaze (Provider): 0 NIH Visual (Provider): 1 NIH Facial Palsy (Provider): 0 NIH Left Arm Motor (Provider): 0 NIH Right Arm Motor (Provider): 0 NIH Left Leg Motor (Provider): 0 NIH Right Leg Motor (Provider): 1 NIH Limb Ataxia (Provider): 0 NIH Sensory (Provider): 0 NIH Best Language (Provider): 1 NIH Dysarthria (Provider): 0 NIH Extinction and Inattention (Provider): 1 NIH Total Score (Provider): 5 Intracerebral Hemorrhage Volume ICH Volume Date of Scan: 10/16/24 Time of Scan: 2046 (A) Maximum Length (cm): 4.5 cm (B) Perpendicular Length (cm): 3.6 cm (C) Number of Slices: 5 (C) Slice Thickness (cm) : 0.5 cm ICH Volume (ml) (Calculated Score): 20.25 Intracerebral Hemorrhage Score Intracerebral Hemorrhage (ICH) Scale Parvez Coma Scale Points: 0-->GCS 13-15 Age>/=80: 0-->no Infratentorial Origin of Hemorrhage?: 0-->no ICH Volume >/= 30cm(3): 0-->no (less than 30cm(3)) Intraventricular Hemorrhage?: 1-->yes ICH Score (Calculated): 1 Score 30 Day Mortality following ICH 0 0% Mortality 1 13% Mortality 2 26% Mortality 3 72% Mortality 4 97% Mortality 5 100% Mortality ASSESSMENT AND PLAN Neuro: 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 No significant carotid or vertebral artery stenosis MRI brain w and w/o: Stable IPH/IVH. TTE: EF 60-65%; no PFO LDL 105, A1c 10.5 -Stroke Etiology (TOAST Criteria): Likely hemorrhagic transformation of recent R MEASUREMENT PSYCHOLOGIST infarct which is likely cardioembolic in nature -Antiplatelet plan: Resumed Aspirin 81 mg daily on 10/24 -Statin therapy: Atorvastatin 40 mg daily -Blood Pressure goal: SBP <160 -Continue to hold Eliquis for now, plan to resume 3 weeks post-bleed and a repeat head CT Hemorrhagic Stroke Core Measures -SCISS on admission 16 -Patient has been started on Mechanical (SCD's) and Pharmacological (SQ heparin) DVT prophylaxis will be started after stable HCT. -Antiplatelet therapy will be initiated 10/24 (PSD 7). -Anticoagulation therapy is indicated for AFib; plan to resume 3 weeks post stroke -Patients LDL 105 and HgbA1c 10.5 were checked -Dysphagia screening ordered, and will be completed prior to patient receiving oral intake. -Stroke education booklet has been provided both written and verbal education to the patient and family regarding hemorrhagic strokes. We have reviewed the patient's personal modifiable risk factors including: A fib as well as education on reducing these risk factors. -Patient is being assessed for Rehab by PT/OT/Speech and PM&R if indicated. AFib on Eliquis (POA) -Hold Eliquis in the setting of IPH with IVH -Restart date and interim initiation of ASA 3 weeks post stroke -Started ASA 5/7 -Eliquis in 3 weeks after a head CT -Resume Coreg as tolerated by HR HTN (POA): SBP goal <160. 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 c/b osteomyelitis -Debridement with external fixator at OSH -Remain NWB on R foot -ID c/s for +multiorganism wound Cx: Rec transition Micafungin to fluconazole and cont Meropenem/Vancomycin for 6 weeks of total IV ATB therapy (Stop date: Meropenem/Vanc 11/22; Fluconazole 11/29) Respiratory distress (Resolved) TODD -Pt with dyspnea at rest 10/17; BNP 962 -Pt spot-diuresed in NCCU, 20mg Lasix ordered daily at transfer for ongoing diuresis -Fluid goal -1L to -2L in NCCU; aim for euvolemia now -Nocturnal BiPAP CENTRAL LINES: Central Line LDAs Active Central Line Access Devices Name Placement date Placement time Site Days PICC Line - Single Lumen 10/16/24224910/16/242249 -- 7 Central Line Indications: Medication Requiring Central Venous Administration : multiple, fci IV antibiotic therapy Can line/s be removed today? Select all that apply Line 1, no cannot be removed Dressing/s Clean/Dry/Intact?: Select all that apply Line 1, Dressing clean, dry, intact Cory Guzman, SUPERVISOR [employer]IVERIES-PROGRAM COORDINATOR EXECUTIVE EDUCATION 10/24/2024 2:42 PM VITAL SIGNS Temp: [97.6 F (36.4 C)-98.2 F (36.8 C)] 98.2 F (36.8 C) Pulse (Heart Rate): [61-83] 83 Resp Rate: [12-26] 12 BP: (136-167)/(63-84) 139/63 O2 Sat (%): [95 %-98 %] 97 % IMAGING/DIAGNOSTIC STUDIES MRI BRAIN WITHOUT CONTRAST Final Result IMPRESSION: Grossly stable parenchymal hemorrhage with surrounding edema centered in the left temporooccipital region, which could relate to hemorrhagic transformation of recent left MEASUREMENT PSYCHOLOGIST territory infarct. No progressive mass effect. Stable small volume of intraventricular extension of hemorrhage. CHEST 1 VIEW PORTABLE Final Result IMPRESSION: Persistent opacification in the lung bases obscuring the hemidiaphragms consistent with small effusions and atelectasis. CHEST 1 VIEW PORTABLE Final Result IMPRESSION: No appreciable change since the prior study. HEAD WITHOUT CONTRAST Final Result IMPRESSION: Unchanged hematoma with surrounding edema in the left temporooccipital region. No increasing mass effect or midline shift. CHEST 1 VIEW PORTABLE Final Result IMPRESSION: No significant change from the previous examination I personally viewed and interpreted these images and I have reviewed and approved this report. FOOT RIGHT 3+ VIEWS Final Result IMPRESSION: Limited examination as above without acute osseous abnormality. Possible debridement site along the posterior superior calcaneal margin. CHEST 1 VIEW PORTABLE Final Result IMPRESSION: No major change, see above. HEAD WITHOUT CONTRAST Final Result IMPRESSION: Unchanged hematoma with surrounding edema in the left temporal occipital lobes CHEST 1 VIEW PORTABLE Final Result IMPRESSION: Pulmonary edema is stable to worse compared to prior. I personally viewed and interpreted these images and I have reviewed and approved this report. CARDIOGRAM Final Result CT HEAD WITHOUT CONTRAST Final Result IMPRESSION: Mild increased edema surrounding the hemorrhage with 3 mm of rightward midline shift. Examination is otherwise not significant changed. CHEST 1 VIEW PORTABLE Final Result IMPRESSION: See above ANGIO BRAIN/NECK Final Result IMPRESSION: \\ 1. Examination is equivocal for mid/distal left posterior cerebral artery occlusion (5/144). Artifact from venous contamination and vessel tortuosity limits characterization, and this may reflect vessel bifurcation. As such, presence of infarct with hemorrhagic conversion is not definitive, and underlying mass would be difficult to exclude on the basis of CT alone. MRI with and without contrast is advised to aid characterization, to include MR angiography to more convincingly assess patency of the left posterior cerebral artery. I, Catherine Cornejo MD have discussed the critical finding/s of possible left MEASUREMENT PSYCHOLOGIST occlusion with Kristen Ramon MD on 10/16/2024 8:57 PM. I personally viewed and interpreted these images and I have reviewed and approved this report. STROKE HEAD-STROKE ALERT ONLY Final Result IMPRESSION: 1. 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 2. Trace interventricular hemorrhage. 3. Localized mass effect without significant midline shift, herniation, hydrocephalus. Pulmonary results were discussed with Kristen Ramon MD at 8:57 PM on October 16, 2024. I personally viewed and interpreted these images and I have reviewed and approved this report. CATIONS amLODIPine 10 mg Oral Daily aspirin 81 mg Oral Daily Atorvastatin 40 mg Oral QHS [Held by provider] carveDILOL 6.25 mg Oral Q12H enoxaparin 30 mg Subcutaneous Q12HNS Fluconazole 400 mg Oral Daily furOSEmide 20 mg Oral Daily Gabapentin 600 mg Oral TID insulin glargine 28 Units Subcutaneous Q24H Insulin lispro Subcutaneous 4x daily w/meals, HS Losartan 50 mg Oral Daily meropenem 1 g Intravenous Q8HNS Polyethylene glycol 17 g Oral Q12H Senna 8.6 mg Oral Q12H vancomycin 750 mg Intravenous Q12HNS * Yahaira Alcocer OT - 10/24/2024 9:32 AM EDT Acute Occupational Therapy Treatment Prior Gross Functional Mobility: independent Current AM-PAC score(s): CURRENT AM-PAC Activity Raw Score: 14 Based on the above AM-PAC score(s), and OT clinical judgment, discharge destination recommendation is: Nursing Home Facility Barriers to discharge home: Patient needs assistance with functional mobility, Patient needs assistance with ADLs, Patient needs assistance with IADLs (see note below), Patient needs assistance with medication management, Patient needs assistance with self-care for medical condition (see note below), Pain management concerns, Cognitive impairments that impact safety (see note below), Assistance needed to ensure precautions are maintained (see note below) Mobility equipment available at home: manual wheelchair, front-wheeled walker, straight cane ADL equipment available at home: shower chair, grab bars Equipment recommendations for discharge: patient lift, wheelchair Equipment issued: Current therapy frequency recommendation(s) in acute: 5 times a week Activity Recommendations for outside of rehab session: Shira lift. Precautions and Weightbearing Status: OT Existing Precautions/Restrictions: fall, cardiac, weight bearing Telemetry Patient Safety Communication Prior to Visit: Nursing Current brace/orthoses: (Right ex-fix) Right Lower Extremity : non-weight bearing Subjective: Pt reported, "I'm not going to be able to clear my bottom" when educating pt on techniques for scooting along EOB with UE support. Pain: General Pain Documentation (Adult, OB, Peds) Presence of Pain: reports pain/discomfort Pain Location: ankle, left, knee, left, ankle, right, foot, right DVPRS (Defense and Veterans Pain Rating Scale) DVPRS: Rest: 5- moderate pain DVPRS: Activity: 6- moderate pain Objective/Observation: Vitals/Vitals Responses to Treatment: No adverse reactions noted. O2 Device: nasal cannula Vision Screen Currently wearing corrective lenses: No Visual Impairments Observed?: No Speech Speech: no gross deficits noted Hearing Hearing: hard of hearing (Mild.) Cognition Overall Cognitive Status: (At risk) Arousal/Alertness: Delayed responses to stimuli Orientation Level: Oriented to person, Oriented to place Following Commands: Follows one step commands with increased time, Follows one step commands with repetition Safety Judgment: Decreased awareness of need for assistance, Decreased awareness of need for safety Awareness of Errors: Assistance required to identify errors made, Assistance required to correct errors made Deficits: Decreased awareness of deficits Attention Span: Difficulty dividing attention Memory: Decreased short term memory Problem Solving: Assistance required to identify errors made, Assistance required to generate solutions, Assistance required to implement solutions Cognition Comments: Delayed processing rate/motor planning; Mild-moderate confusion; Overall, decreased insight into deficits/safety awareness. ADL Assessment/Intervention: UE Dressing Assistance: Minimal UE Dressing Location: edge of bed UE Dressing Deficit: Other (Comment), Retrieval of items, Sequencing, Problem solving, Follows safety/precautions, Balance, Generalized weakness, Activity tolerance, Increased time to complete (Changing soiled hospital gown.) UE Dressing Skilled Rationale (Verbal/Tactile/Visual/Demonstration): Setup, Cues for increased safety, Technique of activity, Cues for cognitive deficit, Facilitate postural control, Facilitate positioning UE Dressing Intervention/Details: Pt mostly requiring minimal assistance/cues for orientation of gown, manuevering UEs into/out of gown with no difficulty. LE Dressing Assistance: Total LE Dressing Location: edge of bed LE Dressing Deficit: Don/doff L sock LE Dressing Intervention/Details: Pt appears mostly limited in performance by LE flexibility and dynamic seated balance. Toilet Assistance: Total Toileting Location: other, see comments (Pt found incontinent of bladder at start of session.) Toileting Deficit: Bladder incontinence, Perineal hygiene Toileting Intervention/Details: Pt requiring max assistance x 2 for rolling in bed and, in turn, dependent for hygiene/lesvia-care completion in this position. Extremity Assessments: See OT Evaluation flowsheet for Extremity Measurement updates. Balance: Sitting Balance Static Sitting-Level of Assistance: Standby Dynamic Sitting-Level of Assistance: Contact guard Sitting Balance Skilled Intervention/Details: Seated EOB for about 12-14 minutes while completing UE therapeutic exercises and lower body dressing, mostly requiring cues for safety. Skin and Edema: Skin Integrity Skin Integrity Description: WFL (Visible areas.) Edema Edema: present (Mild bilateral LEs.) Mobility Assessment/Intervention: Rolling/Turning Mobility [place] Level: Rolling/Turning: maximum assist (25% patient effort) Physical Assist: Rolling/Turnin person assist Bed Features/Set-up: Rolling/Turning: Flat, Use of bed rail Skilled Rationale: Cues for increased safety, Initiation and execution of task, Technique of activity, Tactile cues, Verbal cues, Hand placement, Sequencing, Positioning Skilled Intervention/Details: Rolling/Turning: Cues for initiation/sequencing/safety/precaution adherence, as well as assisting with upper trunk support and aligning hips. x 2 trials completed (to right/left) in order to assist with toilet hygiene/lesvia-care post bladder incontinence. Scooting Bridging Mobility [place] Level: Scooting/Bridging: dependent (less than 25% patient effort) Physical Assist: Scooting/Bridgin person assist Bed Features/Set-up: Scooting/Bridging: Flat Supine to Sit Mobility [place] Level: Supine->Sit: maximum assist (25% patient effort) Physical Assist: Supine->Sit: 2 person assist Bed Features/Set-up: Supine->Sit: Head of bed elevated, Use of bed rail Skilled Rationale: Cues for increased safety, Initiation and execution of task, Technique of activity, Full extension to upright positioning/posture, Facilitate anterior shift, Tactile cues, Verbal cues, Hand placement, Sequencing, Positioning Skilled Intervention/Details: Supine->Sit: Cues for initiation/sequencing/safety, as well as assisting with upper trunk support, LEs, and aligning hips to mildine. Increased time/effort for performance. Sit to Supine Mobility [place] Level: Sit->Supine: maximum assist (25% patient effort) Physical Assist: Sit->Supine: 2 person assist Bed Features/Set-up: Sit->Supine: Flat, Use of bed rail Skilled Rationale: Cues for increased safety, Initiation and execution of task, Technique of activity, Tactile cues, Verbal cues, Hand placement, Sequencing, Positioning Skilled Intervention/Details: Sit->Supine: Cues for initiation/sequencing/safety, as well as assisting with upper trunk support and LEs. Functional Mobility: Functional Mobility Skilled Intervention/Details - Functional Mobility/Gait: Attempted to scoot towards HOB with left LE and bilateral UEs, however, pt unable to complete despite dependent assistance x 2. Outcome Score(s): CURRENT [facility] Daily Activity Inpatient Short Form Putting on/Taking Off Lower Body Clothin - Total Assistance Bathin - A Lot of Assistance Toiletin - Total Assistance Putting on/Taking Off Upper Body Clothin - A Little Assistance Groomin - A Little Assistance Eatin - No Assistance CURRENT [facility] Activity Raw Score: 14 CURRENT [facility] Activity Functional Limitation/Modifier: 59.67% Currently Impaired in Daily Activity- CK Interventions: Intervention 1 Intervention Name: Pt participated in various UE therapeutic exercises while seated EOB. Specifically, pt completed 6 reps (each UE; each movement) of the following UE movements: shoulder flexion, shoulder abduction, elbow extension/flexion, forearm pronation/supination, wrist extension/flexion, and "grasp/release" exercises. Overall, pt demonstrated adequate UE ROM and mildly reduced strength/coordination (about 4-/5 grossly). Pt with early onset fatigue and requiring mild rest breaks throughout. Pt educated on the importance of continued UE therapeutic exercise participation daily in order to encourage improvements in UE ROM/strength/endurance/coordination necessary for participation in functional activities and to prevent further deconditioning while in the hospital. Pt verbalized understanding. Assessment & Plan: Pt is demonstrating Fair progress in occupational therapy goals this date, primarily in static seated balance, dynamic seated balance, left UE ROM, right UE ROM, vision, speech, and alertness. However, pt's barriers to discharge and overall inhibitors in ADL/IADL/functional transfer performance/independence include pt's deficits in endurance/activity tolerance, bed mobility, static standing balance, dynamic standing balance, functional transfers, functional mobility, left UE strength, right UE strength, left UE coordination, right UE coordination, and cognition. Pt would benefit from continued acute occupational therapy services prior to discharge to address noted deficits and progress towar ds achieving increased independence in occupational performance. Patient Instruction/Education this session: Learners: Patient Education provided: Balance training, Bed mobility, Discharge recommendations, Plan of care, Positioning, Role of this discipline, Safety, Activity outside of therapy, Pain management, Precautions/weight bearing status Plan for next session: Therapist to address further UE strengthening, cognitive functioning, and ADL engagement. Acute OT Goals Plan of Care by Yahaira Alcocer OT at 10/24/2024 9:33 AM Version 1 of 1 Problem: OT - ADLs Goal: Grooming - Patient will complete grooming edge of bed with standby assistance for improved ability to safely complete ADLs. Outcome: Ongoing Problem: OT - Strength/ROM Goal: Neuro Re-education - Patient will participate in neuro re-ed of right upper extremity with independence and 80% accuracy for improved functional use in ADLs. Outcome: Ongoing Problem: OT - Transfers Goal: Transfers Supine -> Sit - Patient will perform supine to/from sit with flat bed & no rail and moderate assistance to improve participation in ADLs. Outcome: Progressing Problem: OT - Balance Goal: Balance - Seated - Patient will perform 8-10 minutes of functional task in sitting with standby assistance and good balance to promote safety during self- care activities. Outcome: Progressing Problem: OT - Cognition Goal: Cognition Simple ADL - Patient will demonstrate improved cognition, completing simple ADL task for 8-10 minutes with no greater than min cues required to maintain attention. Outcome: Progressing Problem: OT - Vision Goal: Visual Tracking - Patient will track past midline to right during session with no greater than min cues to attend to familiar object/person for ADL participation in 4/5 trials. Outcome: Progressing OT treatment consisted of the following to work and progress towards the above goal(s): OT Evaluation and Treatment Time Self Care/Home Management (ADLs) Time Entry: 14 Therapeutic Activity Time Entry: 13 Treating Therapist: Yahaira Alcocer OT Additional Details: OT Co-Eval/Treatment Information Co-evaluation/co-treatment performed?: Yes, simultaneous billable skilled care was necessary due tomedical complexity and functional deficits Other discipline: PT Rationale for need to co-eval/treat: cognition, coordination, postural control Co-treatment goal focus: balance, endurance, coordination, self-care, cognition, strength PPE used during patient interaction: gloves Patient location at end of session: bed with head of bed elevated Alarms on at end of session: RN aware, none Needs in reach. Time In: 931 Time Out: 958 Total Visit Time: 27 minutes Total Treatment Time (skilled, billable minutes): 27 minutes Upon discontinuation of Acute Care Occupational Therapy Services or patient discharge from the hospital this note represents the current Occupational Therapy Discharge Summary. * Elizabeth Bettencourt MD - 10/24/2024 7:18 AM EDT I have seen and examined the patient with the team today. I have personally reviewed all the imaging studies, laboratory data and also reviewed the note. In addition I performed a physical examination; discussing the patient with the multi-disciplinary team and managing life sustaining therapies toprevent imminent clinical deterioration. I agree with the assessment and plan with the following additions : Lab Results Component Value Date LDLCALC 105 (H) 10/16/2024 LDLCALC 106 (H) 10/16/2024 Lab Results Component Value Date HGBA1C 10.5 (H) 10/16/2024 CBC: Lab Results Component Value Date WBC 7.42 10/23/2024 HGB 13.1 (L) 10/23/2024 HCT 39.2 (L) 10/23/2024 PLATELET 250 10/23/2024 MCV 79.0 10/23/2024 Chem 7: Lab Results Component Value Date SODIUM 137 10/23/2024 POTASSIUM 4.2 10/23/2024 CHLORIDE 99 10/23/2024 CO2 31 10/23/2024 GLUCOSE 168 10/24/2024 BUN 16 10/23/2024 CREATSERUM 0.56 (L) 10/23/2024 BUNCREARATIO 29 10/23/2024 OSMOLALITY 293 10/23/2024 GFR >90 10/23/2024 HCT:LTO ICH with Left MEASUREMENT PSYCHOLOGIST stroke CTA:mid/distal left posterior cerebral artery occlusion MRI: L MEASUREMENT PSYCHOLOGIST stroke with ICH transformation ECHO: EF okay Neuro Exam: MS: Awake. Language: Intact speech and language. Mild dysarthria CN: 2-12 intact. RFD, Motor: 5/5 all over on left and RHP Assessment: Lani Zaragoza is a 69 y.o. male with a past history of afib on Eliquis, T2DM who presents as hemorrhagic stroke alert from left MEASUREMENT PSYCHOLOGIST ischemic stroke with hemorrhagic transformation. Strokefrom Afib Plan: Resume ASA today. Switch to Ac in 2-[address] before starting. Can Dc ASA once on AC statin HTN: Aim normotension DM: Insulin RLE OM: Abx continue course per ID Continue statin PT/OT evaluation Risk factor modification and stroke education provided. DVT prophylaxis Start dispo planning Elizabeth Bettencourt MD [facility] Department of Neurology * Josr Higuera, [facility] - 10/23/2024 11:58 PM EDT Department of Pharmacy Pharmacokinetics Progress Note Patient: Lani Zaragoza Room/Bed: 1078/A Assessment and Plan: Based upon drug level assessment and interpretation (steady state), no changes to vancomycin dose or dosing interval are indicated at this time. A pharmacist will continue to follow and order drug levels and adjust dosing as clinically appropriate. Vancomycin regimen at time of level: Vancomycin 750 mg IV every 12 hours Last Dose Administered: Dose: Date: Time: 750 mg 10/23 1202 Levels: 17.4 mcg/mL drawn at 2256 on 10/23. Level was a trough. Most Recent Labs: WBC Count Date Value Ref Range Status 10/23/2024 7.42 3.73 - 10.10 K/uL Final BUN Date Value Ref Range Status 10/23/2024 16 7 - 25 mg/dL Final Creatinine Date Value Ref Range Status 10/23/2024 0.56 (L) 0.70 - 1.30 mg/dL Final I/O last 3 completed shifts: In: 259.6 [P.O.:200; IV Piggyback:59.6] Out: 3875 [Urine:3875] Estimated Creatinine Clearance: 187 mL/min (A) (by C-G formula based on SCr of 0.56 mg/dL (L)). Ongoing Vancomycin Monitoring: The following trough goal is recommended for ongoing therapy based on the suspected/confirmed source of infection and today s calculations: Goal trough range: 15-20 mcg/mL If therapy is to be continued after discharge, please contact pharmacy for appropriate dosing. Please feel free to contact me with any further questions. Name: Josr Higuera RPH Phone: [phone] Date/Time: 10/23/2024 11:58 PM * ROSALINDA Lugo - 10/23/2024 3:34 PM EDT Placement Plan Expected Discharge Date: Referred Level of Care: SNF Barriers: Accepting facility, choice, medical readiness, IV antibiotics, transportation. Current Referrals and Status 1. [facility] - Available 11 Other SNFS: Sent Patient transferred to [facility] with SNF referral reserved. However, SNF informed SW this AM that they will not allow patient to discharge unless patient has capacity for Medicaid application process, ability to sign financial POA, or until guardianship has been established as they need Medicaid to accept for potential LTC. SW reopened referrals to search for facility which may be able to take patient prior to the above being established, as Financial Counseling has worked with family on starting a Medicaid application already. SW to follow up with patient's son as LNOK as able to discuss need to look for alternative SNF. MISTY Mcdaniels, TITLE PROCESSOR Advanced Quality Engineer Available by Secure Chat * Shweta Garcia OT - 10/23/2024 1:14 PM EDT Occupational Therapy Attempt Note 10/23/2024 OT Therapy Completed: Attempted Attempted Reason: Patient declined session. Promoted EOB/bed level mobility, adls and or there ex with continued decline "I just don't feel like it today". Shweta Garcia OT I AM A FLOAT, PLEASE PAGE YOUR FLOORS OT REGARDING THIS PATIENT Time In: 1310 Time Out: 1313 Total Visit Time: 3 minutes Total Treatment Time (skilled, billable minutes): 0 minutes * Aydin Byrd - 10/23/2024 9:29 AM EDT NUTRITION RISK SCREENING NOTE Pt with identified nutrition risk factors: Current admit, PMHx, Skin breakdown/wound, and Constipation Nutrition Plan of Care: 1. Continue current diet order. 2. Pt declined oral nutrition supplements. 3. Monitor for significant weight changes. 4. Monitor GI and skin integrity. 5. Monitor and encourage po intakes with goal of average po being 75%. 6. Pt is being referred to unit RD for further evaluation 2/2 PT has poor intake, Declines supplements, and has a wound. [facility] has notified RD via IHIST Chat about referral. RD to follow. Lani Zaragoza is a 69 y.o. male admitted with a past history of afib on Eliquis who presents as hemorrhagic stroke alert. A stroke alert was called for STAT consultation. LKW 1200. Pt was hospitalized at [facility]SH for chronic foot wound since 10/09 and is s/p debridement with podiatry. He was meant to dc today to SNF but around 1200 he became acutely confused and aphasic. Stroke alert was called and CTH demonstrated L temporal hemorrage, possible hemorrhagic mass with 4mm MLS. He is on Eliquis for his hx of afib, but this has been held since 10/09 given foot procedures. He was placed on cardene gtt prior to transfer, but was paused about 20 minutes prior to arrival. He was transferred to [facility] for further management. Past medical history reviewed in chart. Pt is being seen for nutrition screen due to the following: admission 7 days or greater Nutrition Risk Factor Screening Met with patient today at bedside wearing mask to obtain following information: Pt's appetite is poor. % Po intakes: 40% Pt with constipation GI: Last Bowel Movement: 10/21/24 Pt with no issues with chewing and/or swallowing Food Allergies reviewed:none Cultural or Baptist Restrictions/Preferences: none Pt reports unsure of any weight changes. MST Nutrition Risk Screening (MST) Have you recently lost weight without trying?: 0- no Have you been eating poorly because of decreased appetite?: 0- No Malnutrition Screening Tool Score: 0 Skin Assessment Gaetano Score: 13 STAND skin bundle initiated Active Wounds: Edema 2+(mild): Both Legs, arms, and generalized. I/O Net IO Since Admission: -14,165.77 mL [10/23/24 0929] Additional Information Pt has poor intake and declined supplements and any additional food. Current Diet Order DIET CARB CONTROLLED Anthropometrics Height: 175.3 cm (5' 9") Admit wt: 359 lb IBW: 160 lb %IBW: 224% BMI: 53 UBW: 360 lb %UBW: 99.7% Wt Readings from Last 10 Encounters: 10/16/24 (!) 163 kg (359 lb 5.6 oz) Pt without significant weight changes Labs : low creatinine .56 Meds: Lasix, Senna, Miralax Aydin Byrd [facility] Jewel Oliving Machine Operator Student Cosigned by RAYMOND Thompson at 10/23/2024 10:44 AM EDT Associated attestation - Anitra Juarez DT - 10/23/2024 10:44 AM EDT Nutrition Plan of Care: 1. Continue current diet order. 2. Pt declined oral nutrition supplements. -To promote wound healing recommend the addition of MVI with minerals , Zinc and Vitamin C. Check Serum Zinc, Vitamin D and Vitamin A. 3. Monitor for significant weight changes. 4. Monitor GI and skin integrity. 5. Monitor and encourage po intakes with goal of average po being 75%. 6. Pt is being referred to unit RD for further evaluation 2/2 PT has poor intake, Declines supplements, and has a wound. [facility] has notified RD via IHIST Chat about referral. RD to follow. * Elizabeth Bettencourt MD - 10/23/2024 8:03 AM EDT I have seen and examined the patient with the team today. I have personally reviewed all the imaging studies, laboratory data and also reviewed the note. In addition I performed a physical examination; discussing the patient with the multi-disciplinary team and managing life sustaining therapies toprevent imminent clinical deterioration. I agree with the assessment and plan with the following additions : Lab Results Component Value Date LDLCALC 105 (H) 10/16/2024 LDLCALC 106 (H) 10/16/2024 Lab Results Component Value Date HGBA1C 10.5 (H) 10/16/2024 CBC: Lab Results Component Value Date WBC 7.24 10/23/2024 HGB 12.2 (L) 10/23/2024 HCT 36.9 (L) 10/23/2024 PLATELET 255 10/23/2024 MCV 80.7 10/23/2024 Chem 7: Lab Results Component Value Date SODIUM 140 10/23/2024 POTASSIUM 4.2 10/23/2024 CHLORIDE 101 10/23/2024 CO2 33 (H) 10/23/2024 GLUCOSE 141 10/23/2024 BUN 17 10/23/2024 CREATSERUM 0.56 (L) 10/23/2024 BUNCREARATIO 30 10/23/2024 OSMOLALITY 298 10/23/2024 GFR >90 10/23/2024 HCT:LTO ICH with Left MEASUREMENT PSYCHOLOGIST stroke CTA:mid/distal left posterior cerebral artery occlusion MRI: L MEASUREMENT PSYCHOLOGIST stroke with ICH transformation ECHO: EF okay Neuro Exam: MS: Awake. Language: Intact speech and language. Mild dysarthria CN: 2-12 intact. RFD, Motor: 5/5 all over on left and RHP Assessment: Lani Zaragoza is a 69 y.o. male with a past history of afib on Eliquis, T2DM who presents as hemorrhagic stroke alert from left MEASUREMENT PSYCHOLOGIST ischemic stroke with hemorrhagic transformation. Strokefrom Afib Plan: AP and AC held currently. ASA in a week and AC in 2-3 weeks statin HTN: Aim normotension DM: Insulin RLE OM: Abx continue course per ID Continue statin PT/OT evaluation Risk factor modification and stroke education provided. DVT prophylaxis Start dispo planning Elizabeth Bettencourt MD [facility] Department of Neurology * Sohan Sawyer, SUPERVISOR NEWSPAPER DELIVERIES-PROGRAM COORDINATOR EXECUTIVE EDUCATION - 10/23/2024 6:59 AM EDT Neurovascular Stroke Service Intracerebral Hemorrhage Note IDENTIFYING INFORMATION Lani Zaragoza MR# [id number] 10/23/2024 HISTORY OF PRESENT ILLNESS Lani Zaragoza is a 69 y.o. male with PMH significant for A fib on Eliquis who was admitted to an outside hospital on 10/09/24 for chronic foot wound and is s/p debridement with podiatry. On the day hewas to be discharged to SNF on 10/16/24 he became acutely confused and aphasic. Stroke alert was called and CTH demonstrated L temporal hemorrage. His Eliquis was being held for surgery since 10/09. [facility]. NIHSS 12 on arrival. LKW 1200 on 10/16. INTERVAL HISTORY 10/17: Brain MRI pending. Brother updated at bedside. 10/18: Repeat CT stable. Remains in NCCU. 10/19-10/22: NCCU admission, diuresis for respiratory management 10/22: Tx to [facility] service 10/23: Resume Losartan at 25mg daily (06/23 home dose) PHYSICAL EXAM Gen: awake, alert, NAD HEENT: normocephalic, no scalp lesions or tenderness, PERRLA, EOMI Neck: trachea midline CV: NSR on monitor Lungs: Respirations unlabored with equal chest rise Abd: soft, nontender, nondistended Extrem: Warm and well perfused, no cyanosis, right leg/foot dressing/eternal fixator in place but pt with dorsi/plantar flexion Neuro: Oriented x3, ODELL x4, sensation intact and equal bilaterally CN II - Right hemianopia CN II/III - PERRLA CN III/IV/ - EOMI CN V - Light touch to face intact in all 3 divisions CN VII - Facial movement intact and symmetrical bilaterally CN VIII - Hearing intact CN X - Cough present CN XI - muscular movement of shoulders and sternocleidomastoid muscles intact and equal bilaterally CN XII - midline protrusion of tongue MOTOR EXAMINATION: Right hemiparesis NIHSS Provider NIH Stroke Scale NIH Interval (Provider): daily NIH Level of Conciousness (Provider): 0 NIH LOC Questions (Provider): 1 NIH LOC Commands (Provider): 0 NIH Best Gaze (Provider): 0 NIH Visual (Provider): 1 NIH Facial Palsy (Provider): 0 NIH Left Arm Motor (Provider): 0 NIH Right Arm Motor (Provider): 0 NIH Left Leg Motor (Provider): 0 NIH Right Leg Motor (Provider): 1 NIH Limb Ataxia (Provider): 0 NIH Sensory (Provider): 0 NIH Best Language (Provider): 1 NIH Dysarthria (Provider): 0 NIH Extinction and Inattention (Provider): 1 NIH Total Score (Provider): 5 Intracerebral Hemorrhage Volume ICH Volume Date of Scan: 10/16/24 Time of Scan: 2046 (A) Maximum Length (cm): 4.5 cm (B) Perpendicular Length (cm): 3.6 cm (C) Number of Slices: 5 (C) Slice Thickness (cm) : 0.5 cm ICH Volume (ml) (Calculated Score): 20.25 Intracerebral Hemorrhage Score Intracerebral Hemorrhage (ICH) Scale Parvez Coma Scale Points: 0-->GCS 13-15 Age>/=80: 0-->no Infratentorial Origin of Hemorrhage?: 0-->no ICH Volume >/= 30cm(3): 0-->no (less than 30cm(3)) Intraventricular Hemorrhage?: 1-->yes ICH Score (Calculated): 1 Score 30 Day Mortality following ICH 0 0% Mortality 1 13% Mortality 2 26% Mortality 3 72% Mortality 4 97% Mortality 5 100% Mortality ASSESSMENT AND PLAN Neuro: 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 No significant carotid or vertebral artery stenosis MRI brain w and w/o: Stable IPH/IVH. TTE: EF 60-65%; no PFO LDL 105, A1c 10.5 -Stroke Etiology (TOAST Criteria): Likely hemorrhagic transformation of recent R MEASUREMENT PSYCHOLOGIST infarct which is likely cardioembolic in nature -Antiplatelet plan: not started due to acute hemorrhage -Statin therapy: Atorvastatin 40 mg daily -Blood Pressure goal: SBP <160 -Continue to hold Eliquis for now, plan to resume 3 weeks post-bleed Hemorrhagic Stroke Core Measures -NHISS on admission 16 -Patient has been started on Mechanical (SCD's) and Pharmacological (SQ heparin) DVT prophylaxis will be started after stable HCT. -Antiplatelet therapy will be initiated 10/24 (PSD 7). -Anticoagulation therapy is indicated for AFib; plan to resume 3 weeks post stroke -Patients LDL 105 and HgbA1c 10.5 were checked -Dysphagia screening ordered, and will be completed prior to patient receiving oral intake. -Stroke education booklet has been provided both written and verbal education to the patient and family regarding hemorrhagic strokes. We have reviewed the patient's personal modifiable risk factors including: A fib as well as education on reducing these risk factors. -Patient is being assessed for Rehab by PT/OT/Speech and PM&R if indicated. AFib on Eliquis (POA) -Hold Eliquis in the setting of IPH with IVH -Restart date and interim initiation of ASA 3 weeks post stroke -Start ASA 5/, stop with resumption of Eliquis in 3 weeks -Continue Coreg as below HTN (POA) -Home regimen: Losartan 100mg daily, Amlodipine 5mg daily, Metoprolol 50mg BID -Current regimen: Amlodipine 10mg daily, Losartan 25mg daily -Coreg held 10/21 for bradycardia -SBP goal <160 DMII (POA) -Hold home Metformin -SSI while IP with 28u Glargine q24h Chronic R foot wound s/p debridement with Podiatry c/b osteomyelitis -Debridement with external fixator at OSH -Remain NWB on R foot -ID c/s for +multiorganism wound Cx: Rec transition Micafungin to fluconazole and cont Meropenem/Vancomycin for 6 weeks of total IV ATB therapy (Stop date: Meropenem/Vanc 11/22; Fluconazole 11/29) Respiratory distress (Resolved) TODD -Pt with dyspnea at rest 10/17; BNP 962 -Pt spot-diuresed in NCCU, 20mg Lasix ordered daily at transfer for ongoing diuresis -Fluid goal -1L to -2L in NCCU; aim for euvolemia now -Nocturnal BiPAP Sohan Sawyer APRN-PROGRAM COORDINATOR EXECUTIVE EDUCATION 10/23/2024 2:02 PM VITAL SIGNS Temp: [97 F (36.1 C)-98.2 F (36.8 C)] 97.7 F (36.5 C) Pulse (Heart Rate): [61-82] 81 Resp Rate: [14-24] 22 BP: (117-169)/(57-84) 157/76 O2 Sat (%): [95 %-100 %] 96 % IMAGING/DIAGNOSTIC STUDIES MRI BRAIN WITHOUT CONTRAST Final Result IMPRESSION: Grossly stable parenchymal hemorrhage with surrounding edema centered in the left temporooccipital region, which could relate to hemorrhagic transformation of recent left MEASUREMENT PSYCHOLOGIST territory infarct. No progressive mass effect. Stable small volume of intraventricular extension of hemorrhage. CHEST 1 VIEW PORTABLE Final Result IMPRESSION: Persistent opacification in the lung bases obscuring the hemidiaphragms consistent with small effusions and atelectasis. CHEST 1 VIEW PORTABLE Final Result IMPRESSION: No appreciable change since the prior study. HEAD WITHOUT CONTRAST Final Result IMPRESSION: Unchanged hematoma with surrounding edema in the left temporooccipital region. No increasing mass effect or midline shift. CHEST 1 VIEW PORTABLE Final Result IMPRESSION: No significant change from the previous examination I personally viewed and interpreted these images and I have reviewed and approved this report. FOOT RIGHT 3+ VIEWS Final Result IMPRESSION: Limited examination as above without acute osseous abnormality. Possible debridement site along the posterior superior calcaneal margin. CHEST 1 VIEW PORTABLE Final Result IMPRESSION: No major change, see above. HEAD WITHOUT CONTRAST Final Result IMPRESSION: Unchanged hematoma with surrounding edema in the left temporal occipital lobes CHEST 1 VIEW PORTABLE Final Result IMPRESSION: Pulmonary edema is stable to worse compared to prior. I personally viewed and interpreted these images and I have reviewed and approved this report. CARDIOGRAM Final Result CT HEAD WITHOUT CONTRAST Final Result IMPRESSION: Mild increased edema surrounding the hemorrhage with 3 mm of rightward midline shift. Examination is otherwise not significant changed. CHEST 1 VIEW PORTABLE Final Result IMPRESSION: See above ANGIO BRAIN/NECK Final Result IMPRESSION: \\ 1. Examination is equivocal for mid/distal left posterior cerebral artery occlusion (5/144). Artifact from venous contamination and vessel tortuosity limits characterization, and this may reflect vessel bifurcation. As such, presence of infarct with hemorrhagic conversion is not definitive, and underlying mass would be difficult to exclude on the basis of CT alone. MRI with and without contrast is advised to aid characterization, to include MR angiography to more convincingly assess patency of the left posterior cerebral artery. I, Catherine Cornejo MD have discussed the critical finding/s of possible left MEASUREMENT PSYCHOLOGIST occlusion with Kristen Ramon MD on 10/16/2024 8:57 PM. I personally viewed and interpreted these images and I have reviewed and approved this report. STROKE HEAD-STROKE ALERT ONLY Final Result IMPRESSION: 1. 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 2. Trace interventricular hemorrhage. 3. Localized mass effect without significant midline shift, herniation, hydrocephalus. Pulmonary results were discussed with Kristen Ramon MD at 8:57 PM on October 16, 2024. I personally viewed and interpreted these images and I have reviewed and approved this report. CATIONS amLODIPine 10 mg Oral Daily Atorvastatin 40 mg Oral QHS [Held by provider] carveDILOL 6.25 mg Oral Q12H enoxaparin 30 mg Subcutaneous Q12HNS Fluconazole 400 mg Oral Daily furOSEmide 20 mg Oral Daily Gabapentin 600 mg Oral TID insulin glargine 28 Units Subcutaneous Q24H Insulin lispro Subcutaneous 4x daily w/meals, HS Losartan 25 mg Oral Daily meropenem 1 g Intravenous Q8HNS Polyethylene glycol 17 g Oral Q12H Senna 8.6 mg Oral Q12H vancomycin 750 mg Intravenous Q12HNS Cosigned by Elizabeth Bettencourt MD at 10/23/2024 3:33 PM EDT * AHSAN Armstrong - 10/22/2024 1:44 PM EDT Outpatient Parenteral Antibiotic Therapy (OPAT): For patients who will be discharged on parenteral (IV) antibiotic therapy, please utilize the OPAT discharge orderset. For patients who are on oral antibiotic therapy, utilization of this orderset isnot necessary. Diagnosis: Bone R calcaneal OM Recent MRSE bacteremia Antibiotic(s) with dose: The dosing of these antibiotics is based on today's PK/PD calculations and is subject to change. Please evaluate the patient's medication list and carefully verify their dosing, and infusion rate prior to discharge. Do not hesitate to call the on-call ID Team with any questions. Estimated Creatinine Clearance: 187 mL/min (A) (by C-G formula based on SCr of 0.56 mg/dL (L)). - Meropenem 1 gm every 8 hour as an intermittent infusion - Vancomycin (Please refer to the most recent inpatient pharmacy note for dose at discharge and forgoal vancomycin level) as an intermittent infusion - Oral Antibiotics: fluconazole 400 mg daily Duration of Therapy: Total Duration of therapy: 6 weeks Meropenem - Start Date: 10/11/2024; Stop Date: 11/22/2024 Vancomycin - Start Date: 10/11/2024; Stop Date: 11/22/2024 Other: fluconazole - Start Date: 10/22/2024; Stop Date: 11/29/2024 (received IV micafungin 10/18 - 10/22) Does Patient Need Oral Antibiotic Therapy at the End of Parenteral Therapy: No OPAT ID Providers: Outside ID Provider Dr Gergorio Trinidad (ofc # [phone]) Labs: Please have the Home Care Company or Extended Care Facility obtain the following labs and fax to [phone], attention Outside ID Provider Dr Leninger - Chem-6 (Including serum creatinine) without Glucose every Tuesday - CBC w/diff every Tuesday - Vancomycin trough level. (Please refer to the most recent pharmacy note for the goal outpatient Vancomycin level; a vancomycin level and chem-6 checked every Tuesday and for the first two weeks after being discharged from the hospital then every Tuesday on a weekly basis) - ESR every Tuesday - Hepatic Function Panel every Tuesday Imaging: No Follow-up: No - patient with own outside ID provider who will follow-up with the patient If the patient is being discharged to a [facility] ([facility]), we will defer ID Care to the Infectious Disease Providers at the [facility] facility. Please instruct the facility that if the patient requires ID Follow-up after discharge, then they should call our office to arrange for an appointment. Central Access: Can Central Access be removed at the end of therapy: Yes Additional notes: Patient needs follow up scheduled with AHSAN Seals Cosigned by Sherrie Whalen MD at 10/22/2024 4:25 PM EDT * Elizabeth Bettencourt MD - 10/22/2024 1:32 PM EDT I have seen and examined the patient with the team today. I have personally reviewed all the imaging studies, laboratory data and also reviewed the note. In addition I performed a physical examination; discussing the patient with the multi-disciplinary team and managing life sustaining therapies toprevent imminent clinical deterioration. I agree with the assessment and plan with the following additions : Lab Results Component Value Date LDLCALC 105 (H) 10/16/2024 LDLCALC 106 (H) 10/16/2024 Lab Results Component Value Date HGBA1C 10.5 (H) 10/16/2024 CBC: Lab Results Component Value Date WBC 6.47 10/22/2024 HGB 11.6 (L) 10/22/2024 HCT 36.4 (L) 10/22/2024 PLATELET 236 10/22/2024 MCV 81.6 10/22/2024 Chem 7: Lab Results Component Value Date SODIUM 138 10/22/2024 POTASSIUM 4.1 10/22/2024 CHLORIDE 102 10/22/2024 CO2 32 (H) 10/22/2024 GLUCOSE 138 10/22/2024 BUN 15 10/22/2024 CREATSERUM 0.56 (L) 10/22/2024 BUNCREARATIO 27 10/22/2024 OSMOLALITY 292 10/22/2024 GFR >90 10/22/2024 HCT:LTO ICH with Left MEASUREMENT PSYCHOLOGIST stroke CTA:mid/distal left posterior cerebral artery occlusion MRI: L MEASUREMENT PSYCHOLOGIST stroke with ICH transformation ECHO: EF okay Neuro Exam: MS: Awake. Language: Intact speech and language. Mild dysarthria CN: 2-12 intact. RFD, VF ? Decreased on right Motor: 5/5 all over on left and RHP Assessment: Lani Zaragoza is a 69 y.o. male with a past history of afib on Eliquis, T2DM who presents as hemorrhagic stroke alert from left MEASUREMENT PSYCHOLOGIST ischemic stroke with hemorrhagic transformation. Strokefrom Afib Plan: AP and AC held currently. ASA in a week and AC in 2-3 weeks statin HTN: Aim normotension DM: Insulin RLE OM: Abx Continue statin PT/OT evaluation Risk factor modification and stroke education provided. DVT prophylaxis Elizabeth Bettencourt MD [facility] Department of Neurology * Ashley Soriano, SUPERVISOR NEWSPAPER DELIVERIES-PROGRAM COORDINATOR EXECUTIVE EDUCATION - 10/22/2024 1:20 PM EDT Images from the original note were not included. DIVISION OF INFECTIOUS DISEASES FOLLOW UP NOTE - TEAM 5 SUBJECTIVE/INTERVAL HISTORY: Pt is a 69 y.o. male being followed by ID for R calcaneal OM. Patient alert and answering questionsappropriately. No fevers or chills. No abdominal pain, nausea, vomiting, or diarrhea. No rashes. REVIEW OF SYSTEMS: As above Fall Risk: Assessed for patient fall risk and communicated pertinent findings to multidisciplinary team. MEDICATIONS reviewed, antimicrobials include: amLODIPine 10 mg Oral Daily Atorvastatin 40 mg Oral QHS Atropine [Held by provider] carveDILOL 6.25 mg Oral Q12H enoxaparin 30 mg Subcutaneous Q12HNS furOSEmide 20 mg Oral Daily Gabapentin 600 mg Oral TID insulin glargine 28 Units Subcutaneous Q24H Insulin lispro Subcutaneous 4x daily w/meals, HS meropenem 1 g Intravenous Q8HNS micafungin 100 mg Intravenous Q24H Polyethylene glycol 17 g Oral Q12H Senna 8.6 mg Oral Q12H vancomycin 750 mg Intravenous Q12HNS PHYSICAL EXAM: Vitals: BP 135/62 Pulse 72 Temp 97.6 F (36.4 C) (Oral) Resp 20 Ht 1.753 m (5' 9") Wt (!) 163 kg (359 lb 5.6 oz) SpO2 98% BMI 53.07 kg/m General: The patient is a well-developed, well-nourished male in no apparent distress. HEENT: Head is normocephalic and atraumatic. Conjunctiva clear. Mucous membranes are moist. Neck: Supple. No lymphadenopathy. Heart: Regular, rate and rhythm without murmurs appreciated. Lungs: Clear to auscultation bilaterally with no wheezes, rhonchi or rales noted. Abdomen: Soft, nontender, and nondistended. Normal bowel sounds x4 quads. Extremities: Without edema. RLE with external fixator in place. Neurologic: Mild R sided weakness. Alert and cooperative. Decreased sensation to R toes - chronic neuropathy Skin: No rash noted on exposed skin. Psych: Pleasant mood with appropriate affect Central Line Type:PICC Central Line Site: LUE LABS: WBC/Hgb/Hct/Plts: 6.47/11.6/36.4/236 (10/22 22) Lab Results Component Value Date RBCDISTRIBU 13.2 10/22/2024 GRNLOCYT 77.6 10/16/2024 LYMPHOCYT 15.1 10/16/2024 MONOCYTELEC 5.6 10/16/2024 EOSINOPHILS 1.0 10/16/2024 BASOPHILS 0.3 10/16/2024 LYMPHOCYTABS 2.02 10/16/2024 EOSINOPHLABS 0.14 10/16/2024 PLATELET 236 10/22/2024 MPV 9.4 10/22/2024 Bun/Creat/Cl/CO2/Glucose: 15/0.56/102/32/138 (10/22 22) Na/K+/Phos/Mg/Ca: 138/4.1/3.3/2.0/-- (10/22 0023) Lab Results Component Value Date ALT 13 10/16/2024 AST 14 10/16/2024 ALKPHOS 92 10/16/2024 BILITOTAL 0.6 10/16/2024 BILIDIRECT 0.2 10/16/2024 Urinalysis Lab Results Component Value Date SPGRVTYUR 1.025 10/17/2024 GLUCOSEURINE 500 mg/dL (A) 10/17/2024 KETONESURINE 15 mg/dL = Small (A) 10/17/2024 BLOODURINE Negative 10/17/2024 NITRITESURIN Negative 10/17/2024 LEUKOCESTUR Negative 10/17/2024 WBCURINE 0 - 5 10/17/2024 RBCURINE 0-2 10/17/2024 BACTERIAURIN ABSENT 10/17/2024 Microbiology: OSH heel cx: MSSA, Brandin albicans, Enterococcus faecalis, Strep mitis/oralis, Proteus penneri, Bacteroides spp., and Clostridium ramosum [facility] 10/17 Bcx- NGTD 10/18 MRSA/MSSA screen - negative Imaging: MRI BRAIN WITHOUT CONTRAST Final Result IMPRESSION: Grossly stable parenchymal hemorrhage with surrounding edema centered in the left temporooccipital region, which could relate to hemorrhagic transformation of recent left MEASUREMENT PSYCHOLOGIST territory infarct. No progressive mass effect. Stable small volume of intraventricular extension of hemorrhage. FOOT RIGHT 3+ VIEWS Final Result IMPRESSION: Limited examination as above without acute osseous abnormality. Possible debridement site along the posterior superior calcaneal margin. SSMENT: Pt is a 69 y.o. male with PMH: of A-fib on Eliquis, DM (uncontrolled) and OM R calcaneous. He was being treated at OSH ([facility]) for a right heel wound with associated osteomyelitis. He underwent surgical debridement by podiatry on 10/15 with placement of an external fixator. Operative cultures were polymicrobial. He was also found to have MRSE bacteremia (2 of 2 bottles). TTE negative. The patient was receiving IV Vancomycin and Meropenem at the OSH. The post-op course was complicated by an acute hemorrhagic stroke that prompted transfer to [facility]. He has continued on IV david/vanc while here. Received update on OSH cultures of C albicans growth from previous OR cultures. He was started on IV micafungin on 10/18. I have reached out to his outside ID provider - Dr Gregorio Trinidad ([facility] # [phone]). They will continue to follow him after discharge to complete the antibiotic course. We will transition to oral fluconazole - and I updated Dr Trinidad's office of this. R calcaneal OM - s/p debridement ([facility]) MRSE bacteremia - ([facility]) Acute L ICH DM uncontrolled with neuropathy High risk medication that requires monitoring for toxicity. -Estimated Creatinine Clearance: 187 mL/min (A) (by C-G formula based on SCr of 0.56 mg/dL (L)). RECOMMENDATIONS: Continue IV meropenem 1 gm every 8 hrs x 6 weeks Continue IV vancomycin (pharmacy to dose) x 6 weeks Discontinue IV micafungin Begin oral fluconazole 400 mg po daily x 6 weeks See OPAT note for further recommendations - as a separate note. . Recommendations provided to primary team. ID Team 5 will sign off. Please call with questions. ID ATTENDING: Dr Koby Soriano APRN, MS, Adult DISTRIBUTION FIELD ENGINEER-C Infectious Diseases Pager [phone] Cosigned by Sherrie Whalen MD at 10/22/2024 4:25 PM EDT Associated attestation - Sherrie Whalen MD - 10/22/2024 4:25 PM EDT I have personally performed a face to face diagnostic evaluation on this patient. I have reviewed and agree with the care plan and I personally performed the substantive portion of the medical decision-making . My findings are as follows: doing well. Will continue abx as outlined by Dr. Santana at [place]. Sherrie Whalen MD Lock Operator of Clinical Medicine Division of Infectious Diseases Pager: [phone] * Rebecca Lantigua, PT - 10/22/2024 12:56 PM EDT Acute Physical Therapy Treatment Prior Gross Functional Mobility: independent Current AM-PAC score(s): CURRENT AM-PAC Mobility Raw Score: 7 Based on the above AM-PAC score(s) and PT clinical judgment, patient is a good candidate for discharge to Nursing Home Facility Barriers to discharge home: Patient needs assistance with functional mobility Mobility equipment available at home: manual wheelchair, front-wheeled walker, straight cane ADL equipment available at home: shower chair, grab bars Equipment needed for discharge: to be determined Current therapy frequency recommendation in acute: PT Therapy Frequency: 5 times a week Precautions and Weightbearing Status: Existing Precautions/Restrictions: fall Patient Safety Communication Prior to Visit: Nursing Current brace/orthoses: Right (ex-fix) Right Lower Extremity : non-weight bearing Subjective: pt was alert and agreeable Pain: General Pain Documentation (Adult, OB, Peds) Presence of Pain: reports pain/discomfort Pain Location: generalized Objective/Observation: Vitals/Vitals Responses to Treatment: WFL O2 Device: nasal cannula Flow (L/min): 2 Cognition Overall Cognitive Status: Impaired Arousal/Alertness: Delayed responses to stimuli Orientation Level: Oriented to person, Oriented to place Following Commands: Follows one step commands with increased time, Follows one step commands with repetition Extremity Assessments: See PT Evaluation flowsheet for Extremity Measurement updates. Skin and Edema: Balance: Sitting Balance Static Sitting-Level of Assistance: (contact guard/stand by) Dynamic Sitting-Level of Assistance: Moderate assistance Skilled Rationale: Positioning, Sequencing, Hand placement, Verbal cues, Full extension to upright positioning/posture, Finding/maintaining midline positioning Sitting Balance Skilled Intervention/Details: Pt completed EOB sitting with varying assist, initially requiring mod assist due to retro and left lateral leaning but able to progress to contact guard/stand by assist. PT focus on improving patients sitting balance and endurance, cues for midline posture Mobility Assessment/Intervention: Supine to Sit Mobility [place] Level: Supine->Sit: maximum assist (25% patient effort) Physical Assist: Supine->Sit: 2 person assist Bed Features/Set-up: Supine->Sit: Head of bed elevated, Use of bed rail Skilled Rationale: Positioning, Sequencing, Hand placement, Verbal cues Sit to Supine Mobility [place] Level: Sit->Supine: maximum assist (25% patient effort) Physical Assist: Sit->Supine: 2 person assist Bed Features/Set-up: Sit->Supine: Flat Transfer Assessment/Intervention: Gait/Functional Mobility Assessment/Intervention: Stairs Assessment/Intervention: Outcome Score(s): CURRENT [facility] Basic Mobility Inpatient Short Form Turning over in bed: 2 - A Lot of Assistance Moving from lying on back to sittin - Total Assistance Moving to and from bed to chair: 1 - Total Assistance Sitting/standing from chair: 1 - Total Assistance Walk in hospital room: 1 - Total Assistance Climbing 3-5 steps with a railin - Total Assistance CURRENT [facility] Mobility Raw Score: 7 CURRENT [facility] Mobility Functional Limitation: 92.36% Impaired in Basic Mobility Interventions: Assessment & Plan: Pt making good progress toward therapy goals, improving balance/sitting tolerance Patient Instruction/Education this session: Learners: Patient Education provided: Activity outside of therapy, Discharge recommendations Plan for next session: Continue to progress sitting tolerance, balance Acute PT Goals Plan of Care by Rebecca Lantigua PT at 10/22/2024 12:56 PM Version 1 of 1 Problem: PT - General Goals Goal: Supine <-> Sit Transfers - Patient will perform supine to/from sit transfers with moderate assistance and of 2 people and with use of hospital bed features in order to improve functional mobility and safety. Outcome: Progressing Goal: Sitting Endurance/Balance - Patient will perform seated balance tasks for 8 minutes with minimal assistance and bilateral UE support while maintaining trunk in midline Outcome: Progressing PT treatment consisted of the following to progress towards the above goal(s): PT Evaluation and Treatment Time Neuromuscular Re-Education Time Entry: 27 Treating Therapist: Rebecca Lantigua PT Additional Details: PT Co-Eval/Treatment Information Co-evaluation/co-treatment performed?: Yes, simultaneous billable skilled care was necessary due tomedical complexity and functional deficits Other discipline: OT Rationale for need to co-eval/treat: cognition, coordination, postural control Co-treatment goal focus: balance, mobility PPE used during patient interaction: gloves Patient location at end of session: bed with head of bed elevated Alarms on at end of session: RN aware, none altered Needs in reach. Time In: 816 Time Out: 843 Total Visit Time: 27 minutes Total Treatment Time (skilled, billable minutes): 27 minutes Upon discontinuation of Acute Care Physical Therapy Services or patient discharge from the hospitalthis note represents the current Physical Therapy Discharge Summary. * Sohan Sawyer, JENNIFER-PROGRAM COORDINATOR EXECUTIVE EDUCATION - 10/22/2024 11:57 AM EDT Neurovascular Stroke Service Intracerebral Hemorrhage Note IDENTIFYING INFORMATION Lani Zaragoza MR# [id number] 10/22/2024 HISTORY OF PRESENT ILLNESS Lani Zaragoza is a 69 y.o. male with PMH significant for A fib on Eliquis who was admitted to an outside hospital on 10/09/24 for chronic foot wound and is s/p debridement with podiatry. On the day hewas to be discharged to SNF on 10/16/24 he became acutely confused and aphasic. Stroke alert was called and CTH demonstrated L temporal hemorrage. His Eliquis was being held for surgery since 10/09. [facility]. NIHSS 12 on arrival. LKW 1200 on 10/16. INTERVAL HISTORY 10/17: Brain MRI pending. Brother updated at bedside. 10/18: Repeat CT stable. Remains in NCCU. 10/19-10/22: [facility] admission, diuresis for respiratory management 10/22: Tx to [facility] service PHYSICAL EXAM Gen: awake, alert, NAD HEENT: normocephalic, no scalp lesions or tenderness, PERRLA, EOMI Neck: trachea midline CV: NSR on monitor Lungs: Respirations unlabored with equal chest rise Abd: soft, nontender, nondistended Extrem: Warm and well perfused, no cyanosis, right leg/foot dressing/eternal fixator in place but pt with dorsi/plantar flexion Neuro: Oriented x3, ODELL x4, sensation intact and equal bilaterally CN II - Right hemianopia CN II/III - PERRLA CN III/IV/ - EOMI CN V - Light touch to face intact in all 3 divisions CN VII - Facial movement intact and symmetrical bilaterally CN VIII - Hearing intact CN X - Cough present CN XI - muscular movement of shoulders and sternocleidomastoid muscles intact and equal bilaterally CN XII - midline protrusion of tongue MOTOR EXAMINATION: Right hemiparesis NIHSS Provider NIH Stroke Scale NIH Interval (Provider): daily NIH Level of Conciousness (Provider): 0 NIH LOC Questions (Provider): 1 NIH LOC Commands (Provider): 0 NIH Best Gaze (Provider): 0 NIH Visual (Provider): 2 NIH Facial Palsy (Provider): 0 NIH Left Arm Motor (Provider): 0 NIH Right Arm Motor (Provider): 0 NIH Left Leg Motor (Provider): 0 NIH Right Leg Motor (Provider): 2 NIH Limb Ataxia (Provider): 0 NIH Sensory (Provider): 0 NIH Best Language (Provider): 1 NIH Dysarthria (Provider): 0 NIH Extinction and Inattention (Provider): 1 NIH Total Score (Provider): 7 Intracerebral Hemorrhage Volume ICH Volume Date of Scan: 10/16/24 Time of Scan: 2046 (A) Maximum Length (cm): 4.5 cm (B) Perpendicular Length (cm): 3.6 cm (C) Number of Slices: 5 (C) Slice Thickness (cm) : 0.5 cm ICH Volume (ml) (Calculated Score): 20.25 Intracerebral Hemorrhage Score Intracerebral Hemorrhage (ICH) Scale [place] Coma Scale Points: 0-->GCS 13-15 Age>/=80: 0-->no Infratentorial Origin of Hemorrhage?: 0-->no ICH Volume >/= 30cm(3): 0-->no (less than 30cm(3)) Intraventricular Hemorrhage?: 1-->yes ICH Score (Calculated): 1 Score 30 Day Mortality following ICH 0 0% Mortality 1 13% Mortality 2 26% Mortality 3 72% Mortality 4 97% Mortality 5 100% Mortality ASSESSMENT AND PLAN Neuro: 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 No significant carotid or vertebral artery stenosis MRI brain w and w/o: Stable IPH/IVH. TTE: EF 60-65%; no PFO LDL 105, A1c 10.5 -Stroke Etiology (TOAST Criteria): Likely hemorrhagic transformation of recent R MEASUREMENT PSYCHOLOGIST infarct which is likely cardioembolic in nature -Antiplatelet plan: not started due to acute hemorrhage -Statin therapy: Atorvastatin 40 mg daily -Blood Pressure goal: SBP <160 -Continue to hold Eliquis for now Hemorrhagic Stroke Core Measures -NHISS on admission 16 -Patient has been started on Mechanical (SCD's) and Pharmacological (SQ heparin) DVT prophylaxis will be started after stable HCT. -Antiplatelet therapy is not indicated. -Anticoagulation therapy not indicated in hemorrhagic stroke -Patients LDL 105 and HgbA1c 10.5 were checked -Dysphagia screening ordered, and will be completed prior to patient receiving oral intake. -Stroke education booklet has been provided both written and verbal education to the patient and family regarding hemorrhagic strokes. We have reviewed the patient's personal modifiable risk factors including: A fib as well as education on reducing these risk factors. -Patient is being assessed for Rehab by PT/OT/Speech and PM&R if indicated. AFib on Eliquis (POA) -Hold Eliquis in the setting of IPH with IVH -Restart date and interim initiation of ASA TBD -Continue Coreg as below HTN (POA) -Home regimen: Losartan 100mg daily, Amlodipine 5mg daily, Metoprolol 50mg BID -Current regimen: Amlodipine 10mg daily and Coreg 6.25mg BID -SBP goal <160 DMII (POA) -Hold home Metformin -SSI while IP with 28u Glargine q24h Chronic R foot wound s/p debridement with Podiatry c/b osteomyelitis -Debridement with external fixator at OSH -Remain NWB on R foot -ID c/s for +multiorganism wound Cx: Rec Micafungin and cont Meropenem/Vancomycin Respiratory distress (Resolved) TODD -Pt with dyspnea at rest 10/17; BNP 962 -Pt spot-diuresed in NCCU, 20mg Lasix ordered daily at transfer for ongoing diuresis -Fluid goal -1L to -2L in NCCU; aim for euvolemia now -Nocturnal BiPAP Sohan Sawyer APRN-PROGRAM COORDINATOR EXECUTIVE EDUCATION 10/22/2024 12:10 PM VITAL SIGNS Temp: [96.6 F (35.9 C)-97.8 F (36.6 C)] 97.6 F (36.4 C) Pulse (Heart Rate): [53-77] 68 Resp Rate: [11-24] 18 BP: (111-177)/(55-80) 147/64 O2 Sat (%): [93 %-99 %] 98 % IMAGING/DIAGNOSTIC STUDIES MRI BRAIN WITHOUT CONTRAST Final Result IMPRESSION: Grossly stable parenchymal hemorrhage with surrounding edema centered in the left temporooccipital region, which could relate to hemorrhagic transformation of recent left MEASUREMENT PSYCHOLOGIST territory infarct. No progressive mass effect. Stable small volume of intraventricular extension of hemorrhage. CHEST 1 VIEW PORTABLE Final Result IMPRESSION: Persistent opacification in the lung bases obscuring the hemidiaphragms consistent with small effusions and atelectasis. CHEST 1 VIEW PORTABLE Final Result IMPRESSION: No appreciable change since the prior study. HEAD WITHOUT CONTRAST Final Result IMPRESSION: Unchanged hematoma with surrounding edema in the left temporooccipital region. No increasing mass effect or midline shift. CHEST 1 VIEW PORTABLE Final Result IMPRESSION: No significant change from the previous examination I personally viewed and interpreted these images and I have reviewed and approved this report. FOOT RIGHT 3+ VIEWS Final Result IMPRESSION: Limited examination as above without acute osseous abnormality. Possible debridement site along the posterior superior calcaneal margin. CHEST 1 VIEW PORTABLE Final Result IMPRESSION: No major change, see above. HEAD WITHOUT CONTRAST Final Result IMPRESSION: Unchanged hematoma with surrounding edema in the left temporal occipital lobes CHEST 1 VIEW PORTABLE Final Result IMPRESSION: Pulmonary edema is stable to worse compared to prior. I personally viewed and interpreted these images and I have reviewed and approved this report. CARDIOGRAM Final Result CT HEAD WITHOUT CONTRAST Final Result IMPRESSION: Mild increased edema surrounding the hemorrhage with 3 mm of rightward midline shift. Examination is otherwise not significant changed. CHEST 1 VIEW PORTABLE Final Result IMPRESSION: See above ANGIO BRAIN/NECK Final Result IMPRESSION: \\ 1. Examination is equivocal for mid/distal left posterior cerebral artery occlusion (5/144). Artifact from venous contamination and vessel tortuosity limits characterization, and this may reflect vessel bifurcation. As such, presence of infarct with hemorrhagic conversion is not definitive, and underlying mass would be difficult to exclude on the basis of CT alone. MRI with and without contrast is advised to aid characterization, to include MR angiography to more convincingly assess patency of the left posterior cerebral artery. I, Catherine Cornejo MD have discussed the critical finding/s of possible left MEASUREMENT PSYCHOLOGIST occlusion with Kristen Ramon MD on 10/16/2024 8:57 PM. I personally viewed and interpreted these images and I have reviewed and approved this report. STROKE HEAD-STROKE ALERT ONLY Final Result IMPRESSION: 1. 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 2. Trace interventricular hemorrhage. 3. Localized mass effect without significant midline shift, herniation, hydrocephalus. Pulmonary results were discussed with Kristen Ramon MD at 8:57 PM on October 16, 2024. I personally viewed and interpreted these images and I have reviewed and approved this report. CATIONS amLODIPine 10 mg Oral Daily Atorvastatin 40 mg Oral QHS Atropine [Held by provider] carveDILOL 6.25 mg Oral Q12H enoxaparin 30 mg Subcutaneous Q12HNS furOSEmide 20 mg Oral Daily Gabapentin 600 mg Oral TID insulin glargine 28 Units Subcutaneous Q24H Insulin lispro Subcutaneous 4x daily w/meals, HS meropenem 1 g Intravenous Q8HNS micafungin 100 mg Intravenous Q24H Polyethylene glycol 17 g Oral Q12H Senna 8.6 mg Oral Q12H vancomycin 750 mg Intravenous Q12HNS Cosigned by Elizabeth Bettencourt MD at 10/22/2024 3:27 PM EDT * Sergei Atkins [facility] - 10/22/2024 11:23 AM EDT Department of Pharmacy Antimicrobial Stewardship Documentation Note Patient: Lani Zaragoza Room/Bed: 1040/A Based upon discussion on rounds the following stop date adjustments have been made to the current anti-infective regimen. Indication: R foot osteomyelitis/diabetic foot infection Anti-Infective Agent(s) Current Anti-Infective Stop Date Adjusted Anti-Infective Stop Date Total Duration of Therapy Meropenem No Current Stop Date 11/22/24 6 weeks Vancomycin No Current Stop Date 11/22/24 6 weeks Please feel free to contact me with any further questions. Name: Sergei Atkins [facility] Phone: [phone] Date/Time: 10/22/2024 11:23 AM * AHSAN Charles - 10/22/2024 9:13 AM EDTSummary: Consult Sign Off Images from the original note were not included. 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 Our consult team will sign off today. Patient is meeting hospital target 140-180 most of the time. If primary team having difficulty keeping patient within hospital targets after making 10-20% insulin adjustments, please contact our team for additional assistance. Additional consult does not need placed. Contact us closer to discharge for final recs. For provider workplace rehabilitation officer, please use QGENDA : TEAM 2 Clinical Practice Guideline "Inpatient Management of Diabetes Mellitus (DM): Non- Adults" Plan Hospital Plan: Continue current regimen Basal: Glargine 28 units at 1200 Prandial: Insulin lispro 1 unit per 6 grams of carbs ACHS and PRN Correction: Insulin lispro 1 unit per 25 mg/dl greater than 150 mg/dl ACHS Education: following with healthcare educator. Aware will need prandial insulin at discharge. Fall Risk: Assessed for patient fall risk and discussed safety measures during rounding. We will review glucoses; however, primary team should continue to check blood glucoses daily and reach out to our service with urgent issues DIABETES DISCHARGE PLAN Please contact our team on day of discharge for definitive recs. QGENDA :TEAM 2 Tentative discharge plan: Would favor basal/ bolus. Working with DE, if she feels he can't do it, will do premixed insulin. (Please use the Diabetes Discharge Order Set: Diabetes Orders - for those patients discharged on INSULIN) - If orals or non-insulin injectables recommended, will need to order them outside of the Diabetes Orderset. -resume metformin Discharge Diet: DIET CARB CONTROLLED- 60 Grams per Meal Patient Education: Your target blood sugar is 80-130 mg/dl fasting and under 180 mg/dl nonfasting. Patient needs new insulin scripts at discharge: YES, needs all new insulin scripts prescribed. Basal/Mealtime - Basal: U300 Glargine PENS with needles, dose 28 units. (Or insurance covered equivalent.) No Titration. Per patient report he was taking [place]jeo - Mealtime time insulin: FixedvsFlexible: Fixed: U100 Lispro Pens with [place] MAX DAILY DOSE 60 10 Units for Large Meal or 5 Units for Small Meal PLUS Correction Scale Subcutaneous every meal andat bedtime Correction Scale: (Copy and paste into "Note to Pharmacy") Custom: 151-200 = 2 units 201-250 = 4 units 251-300 = 6 units 301-350 = 8 units 351-400 = 10 units Diabetes Supplies: Glucose monitoring supplies for ACHS: Glucose test strips: dispense 150 with 1 refill - Patient prefers any brand or substitute brand covered by insurance, Lancets: dispense 150 with 1 refill, and alcohol swabs: dispense 200 with 1 refill The patient will need script for new glucometer: no: Patient prefers any brand or substitute brand covered by insurance Continuous Glucose Monitoring Devices: Continue home CGM (does not need new script) Other Diabetes Supplies: Glucagon(Gvoke HypoPen 2-Pack) 1 MG/0.2ML Solution Auto-injector Follow up needed: Does not need [facility] Endocrinology appt PCP after discharge from facility CC: Hyperglycemia History of Present Illness: Lani Zaragoza is a 69 y.o. year old male who is seen at the bedside. Cr 0.55. Eating 10-35 g CHO/meal. Glucoses ranging from 130- 184 mg/dl yesterday. Current Diet Orders Procedures DIET CARB CONTROLLED 1:1 supervision with small snacks when BiPAP is OFF Standing Status: Standing Number of Occurrences: 1 Current Regimen: Basal: Glargine 28 units at 1200 Prandial: Insulin lispro 1 unit per 6 grams of carbs ACHS and PRN Correction: Insulin lispro 1 unit per 25 mg/dl greater than 150 mg/dl ACHS Daily Glucose Review: Date Daily glucose review TDD Basal Prandial/ Correction 10/17/2024 223/219, 236, 244, 252/252 32 16 16 10/18/2024 245/220, 212, 186, 236 41 32 9 10/19/2024 143, 138/110, 176 35 28 7 10/20/24 35 28 7 10/21/24 39 28 11 Review of Systems Diabetes: Negative for symptoms of hypoglycemia Physical Exam Constitutional: obese male in no acute distress. Pulmonary/Chest: Respirations even and unlabored on nasal cannula Musculoskeletal: No acute abnormalities noted Neurological: Alert and interactive Psych: Cooperative Temp: [96.6 F (35.9 C)-97.8 F (36.6 C)] 96.6 F (35.9 C) Pulse (Heart Rate): [53-77] 71 Resp Rate: [11-24] 22 BP: (111-177)/(55-80) 130/60 O2 Sat (%): [93 %-99 %] 99 %Admission (Dosing) Weight: (!) 172 kg (379 lb 3.1 oz) Most recent entered Weight: (!) 163 kg (359 lb 5.6 oz) Body mass index is 53.07 kg/m . Background History Lani Zaragoza is a 69 year old male with PMH of A-fib and type 2 diabetes mellitus who was a transferred from [facility] where he originally presented for management of chronic foot wound. Upon planned discharge 10/16 a stroke code was called and CTH revealed hemorrhagic stroke. He was sent to [facility] for further management. He is admitted to [facility]. Diabetes History: Type of Diabetes: Type 2 Diabetes Mellitus (T2DM) Date of diagnosis: 2023 Outpatient physician: [facility]OW Diabetes Complications: peripheral neuropathy Date of most recent dilated eye exam: unknown DKA occurrences: none Home blood glucoses: He is checking his blood sugars with Dexcom Home diabetes medications: Basal: toujeo unknown dose (no recent fill history). He reports he was taking this but can't remember dose. [facility] Prandial: none Correction: none Non-insulin Injectables: none Orals: metformin BP Medication(s): carvedilol, amlodipine, and hydralazine Lipid Medication(s): none Recent A1c: Lab Results Component Value Date HGBA1C 10.5 (H) 10/16/2024 Lab Results Component Value Date CHOLESTEROL 165 10/16/2024 TRIG 113 10/16/2024 HDL 37 (L) 10/16/2024 LDLCALC 105 (H) 10/16/2024 Lab Results Component Value Date SODIUM 138 10/22/2024 POTASSIUM 4.1 10/22/2024 CHLORIDE 102 10/22/2024 CO2 32 (H) 10/22/2024 BUN 15 10/22/2024 CREATSERUM 0.56 (L) 10/22/2024 GLUCOSE 138 10/22/2024 No results found for: "CREATURINE", "MICROALBUMIN", "MICALBCREAT" Lab Results Component Value Date ALT 13 10/16/2024 No results found for: "PREALBUMIN" Cardiac echo: EF = Results for orders placed during the hospital encounter of 10/16/24 ECHOCARDIOGRAM 10/17/2024 (Final) Interpretation Summary Technically difficult study. The left ventricular chamber size and systolic function are normal. LVEF 60-65%. Mild concentric LVH. The right ventricular chamber size and systolic function are normal. Bi-atrial enlargement. There is no hemodynamically significant valvular disease. Estimated RVSP 49 mmHg. No right to left shunt with agitated saline. * Yahaira Alcocer, OT - 10/22/2024 8:17 AM EDT Acute Occupational Therapy Treatment Prior Gross Functional Mobility: independent Current AM-PAC score(s): CURRENT AM-PAC Activity Raw Score: 11 Based on the above AM-PAC score(s), and OT clinical judgment, discharge destination recommendation is: Nursing Home Facility Barriers to discharge home: Patient needs assistance with functional mobility, Patient needs assistance with ADLs, Patient needs assistance with IADLs (see note below), Patient needs assistance with medication management, Patient needs assistance with self-care for medical condition (see note below), Pain management concerns, Cognitive impairments that impact safety (see note below), Assistance needed to ensure precautions are maintained (see note below) Mobility equipment available at home: manual wheelchair, front-wheeled walker, straight cane ADL equipment available at home: shower chair, grab bars Equipment recommendations for discharge: patient lift, wheelchair Equipment issued: Current therapy frequency recommendation(s) in acute: 5 times a week Activity Recommendations for outside of rehab session: Shira lift. Precautions and Weightbearing Status: OT Existing Precautions/Restrictions: fall, cardiac, supplemental oxygen Telemetry, Urinary catheter Patient Safety Communication Prior to Visit: Nursing Current brace/orthoses: (Right ex-fix) Right Lower Extremity : non-weight bearing Subjective: Pt minimally verbal during session and requiring intermittent cues for alertness and time for simple command following. Pain: General Pain Documentation (Adult, OB, Peds) Presence of Pain: reports pain/discomfort Pain Location: back, arm, right, leg, right, ankle, right Objective/Observation: Vitals/Vitals Responses to Treatment: No adverse reactions noted. O2 Device: nasal cannula Flow (L/min): 2 Vision Screen Currently wearing corrective lenses: No Visual Impairments Observed?: No Speech Speech: other (see comments) (Minimally verbal this date.) Hearing Hearing: hard of hearing (Mild.) Cognition Overall Cognitive Status: Impaired Arousal/Alertness: Delayed responses to stimuli Orientation Level: Oriented to person, Oriented to place (Pt reported current year as "2019.") Following Commands: Follows one step commands with increased time, Follows one step commands with repetition Safety Judgment: Decreased awareness of need for assistance, Decreased awareness of need for safety Awareness of Errors: Decreased awareness of errors Deficits: Decreased awareness of deficits Attention Span: Attends with cues to redirect, Difficulty attending to directions, Difficulty dividing attention Memory: Decreased fci memory, Decreased short term memory Problem Solving: Assistance required to identify errors made, Assistance required to generate solutions, Assistance required to implement solutions Cognition Comments: Delayed processing rate/motor planning; Moderate confusion; Overall, decreased insight into deficits/safety awareness. ADL Assessment/Intervention: Grooming Assistance: Minimal Grooming Location: edge of bed Grooming Deficit: Wash/dry face, Oral care, Brushing hair, Attention, Initiation, Sequencing, Problem solving, Follows safety/precautions, Balance, Retrieval of items, Manipulation of items, Generalized weakness, Activity tolerance, Increased time to complete Grooming Skilled Rationale (Verbal/Tactile/Visual/Demonstration): Setup, Cues for increased safety,Technique of activity, Cues for cognitive deficit, Facilitate postural control, Facilitate positioning Grooming Intervention/Details: Pt mostly required minimal-moderate assistance for seated balance maintenance during ADL engagement. Additionally, pt requiring mild cues/assistance for initiation/sequencing of tasks and mildly increased time/effort for manipulation of ADL tools/equipment. Pt appeared moderately fatigued post activity performance. Extremity Assessments: See OT Evaluation flowsheet for Extremity Measurement updates. Balance: Sitting Balance Static Sitting-Level of Assistance: Contact guard Dynamic Sitting-Level of Assistance: Moderate assistance Sitting Balance Skilled Intervention/Details: Seated EOB for about 15 minutes while engaging in therapeutic activity and grooming tasks, mostly requiring cues for safety and with intermittent retropulsive lean when engaging in higher-level dynamic tasks. Skin and Edema: Skin Integrity Skin Integrity Description: WFL (Visible areas.) Edema Edema: present (Moderate bilateral LEs; Mild bilateral UEs.) Mobility Assessment/Intervention: Scooting Bridging Mobility [place] Level: Scooting/Bridging: dependent (less than 25% patient effort) Physical Assist: Scooting/Bridgin person assist Bed Features/Set-up: Scooting/Bridging: Flat Supine to Sit Mobility [place] Level: Supine->Sit: maximum assist (25% patient effort) Physical Assist: Supine->Sit: 2 person assist Bed Features/Set-up: Supine->Sit: Head of bed elevated, Use of bed rail Skilled Rationale: Cues for increased safety, Initiation and execution of task, Technique of activity, Full extension to upright positioning/posture, Facilitate anterior shift, Tactile cues, Verbal cues, Hand placement, Sequencing, Positioning Skilled Intervention/Details: Supine->Sit: Cues for initiation/sequencing/safety, as well as assisting with upper trunk support, LEs, and aligning hips to midline. Increased time/effort for performance with pt appearing increasingly limited by cognition/comprehension. Sit to Supine Mobility [place] Level: Sit->Supine: maximum assist (25% patient effort) Physical Assist: Sit->Supine: 2 person assist Bed Features/Set-up: Sit->Supine: Flat Skilled Rationale: Cues for increased safety, Initiation and execution of task, Technique of activity, Tactile cues, Verbal cues, Hand placement, Sequencing, Positioning Skilled Intervention/Details: Sit->Supine: Cues for initiation/sequencing/safety, as well as assisting with upper trunk support and LEs. Outcome Score(s): CURRENT [facility] Daily Activity Inpatient Short Form Putting on/Taking Off Lower Body Clothin - Total Assistance Bathin - A Lot of Assistance Toiletin - Total Assistance Putting on/Taking Off Upper Body Clothin - A Lot of Assistance Groomin - A Lot of Assistance Eatin - A Little Assistance CURRENT [facility] Activity Raw Score: 11 CURRENT [facility] Activity Functional Limitation/Modifier: 70.42% Currently Impaired in Daily Activity- CL Interventions: Intervention 1 Intervention Name: Therapist engaged pt in dynamic reaching activity seated EOB, encouraging lateral and anterior weight shifting, UE ranging/strengthening, and visual scanning. Pt required minimal-moderate assistance for lateral/anterior weight shifting, presenting with mild fear of falling forward and requiring increased cueing for safety/completion. Pt demonstrated adequate UE ROM for performance, but mildly reduced strength (about 4-/5 grossly). Pt visually scanning in all visual pugh WFL. Overall, increased time/effort for activity performance and pt moderately fatigued. Assessment & Plan: Pt is demonstrating Fair progress in occupational therapy goals this date, primarily in static seated balance, left UE ROM, right UE ROM, vision, speech, and alertness. However, pt's barriers to discharge and overall inhibitors in ADL/IADL/functional transfer performance/independence include pt's deficits in endurance/activity tolerance, bed mobility, dynamic seated balance, static standing balance, dynamic standing balance, functional transfers, functional mobility, left UE strength, right UE strength, left UE coordination, right UE coordination, and cognition. Pt would benefit from continued acute occupational therapy services prior to discharge to address noted deficits and progress towar ds achieving increased independence in occupational performance. Patient Instruction/Education this session: Learners: Patient Education provided: Balance training, Bed mobility, Discharge recommendations, Plan of care, Positioning, Role of this discipline, Safety, Activity outside of therapy, Pain management, Precautions/weight bearing status Plan for next session: Therapist to address further dynamic seated EOB balance, UE strengthening, and lower body ADL engagement with use of AE. Acute OT Goals Plan of Care by Yahaira Alcocer OT at 10/22/2024 8:18 AM Version 1 of 1 Problem: OT - Strength/ROM Goal: Neuro Re-education - Patient will participate in neuro re-ed of right upper extremity with independence and 80% accuracy for improved functional use in ADLs. Outcome: Ongoing Problem: OT - ADLs Goal: Grooming - Patient will complete grooming edge of bed with standby assistance for improved ability to safely complete ADLs. Outcome: Progressing Problem: OT - Transfers Goal: Transfers Supine -> Sit - Patient will perform supine to/from sit with flat bed & no rail and moderate assistance to improve participation in ADLs. Outcome: Progressing Problem: OT - Balance Goal: Balance - Seated - Patient will perform 8-10 minutes of functional task in sitting with standby assistance and good balance to promote safety during self- care activities. Outcome: Progressing Problem: OT - Cognition Goal: Cognition Simple ADL - Patient will demonstrate improved cognition, completing simple ADL task for 8-10 minutes with no greater than min cues required to maintain attention. Outcome: Progressing Problem: OT - Vision Goal: Visual Tracking - Patient will track past midline to right during session with no greater than min cues to attend to familiar object/person for ADL participation in 4/5 trials. Outcome: Progressing OT treatment consisted of the following to work and progress towards the above goal(s): OT Evaluation and Treatment Time Self Care/Home Management (ADLs) Time Entry: 15 Therapeutic Activity Time Entry: 12 Treating Therapist: Yahaira Alcocer OT Additional Details: OT Co-Eval/Treatment Information Co-evaluation/co-treatment performed?: Yes, simultaneous billable skilled care was necessary due tomedical complexity and functional deficits Other discipline: PT Rationale for need to co-eval/treat: cognition, coordination, postural control, alertness/arousal Co-treatment goal focus: balance, endurance, coordination, self-care, cognition, strength PPE used during patient interaction: gloves Patient location at end of session: bed with head of bed elevated Alarms on at end of session: RN aware, none Needs in reach. Time In: 816 Time Out: 843 Total Visit Time: 27 minutes Total Treatment Time (skilled, billable minutes): 27 minutes Upon discontinuation of Acute Care Occupational Therapy Services or patient discharge from the hospital this note represents the current Occupational Therapy Discharge Summary. * Shaan Keller MD - 10/22/2024 7:23 AM EDT NEUROCRITICAL CARE PROGRESS NOTE HOSPITAL VISIT DEMOGRAPHICS Patient: Lani Zaragoza Code status: Full Code Admission date: 10/16/2024 8:33 PM Hospital days: LOS: 6 days CHIEF COMPLAINT stroke HISTORY OF PRESENT ILLNESS Lani Zaragoza is a 69 y.o. male with a past history of afib on Eliquis, T2DM who presents as hemorrhagic stroke alert. A stroke alert was called for STAT consultation. LKW 1200. Pt was [facility] at [facility] for chronic foot wound since 10/09 and is s/p debridement with podiatry. He was meant to dc today to SNF but around 1200 he became acutely confused and aphasic. Stroke alert was called and CTH demonstrated L temporal hemorrage, possible hemorrhagic mass with 4mm MLS. He is on Eliquis for his hx of afib, but this has been held since 10/09 given foot procedures. He was placed on cardene gtt prior to transfer, but was paused about 20 minutes prior to arrival. He was transferred to [facility] for further management. INTERVAL HISTORY SINCE ADMISSION 10/16/2024: Admitted to [facility] 10/17: held MRI B given airway watch; BiPAP for air hunger; Endo consult for hyperglycemia; sodium goal >140 with 3% boluses; lasix for fluid goal 10/18: Relaxed SBP <160; increased Coreg, off Cardene gtt; Lasix 60 twice for respiratory status; CTH in morning stable; Endo increased insulin regimen; ID recs updated 10/19: Continuing to diurese for negative fluid goal/respiratory status. 10/20: BNP over night, order MRI B, diamox 500 for diuresis 10/21: Diamox 500 for diuresis 10/22: Discontinue beard, transition diuresis to PO furosemide 20 mg daily PHYSICAL EXAM GENERAL: Alert, no acute distress, flat affect HEENT: normocephalic, no scalp wounds nor lesions CARDIO: +S1S2, bee to normal HR on telemetry, no visible P waves, no m/r/g, no edema PULM: Clear to diminished to auscultation bilaterally, equal chest rise, NC ABDOMINAL: soft, nontender, nondistended, active bowel sounds EXTREMITIES: no wounds or lesions VASCULAR: + distal pulses, capillary refill <3 seconds, has left arm PICC line with no erythema,purulent drainage, or signs of infection and dressing is C/D/I. NEURO: Awake, alert, oriented to name, place, month with choices, year with choices, states he is in the hospital for a stroke, following commands in all extremities. No dysarthria. No facial droop. PERRL, gaze midline, EOMI tracking provider. Hearing grossly intact. Shoulder shrug 5/5 bilaterally.Tongue midline. LUE 4/5 strength, LLE 3/5 strength; RUE 4/5 strength, RLE with 3/5 strength with hip flexion/knee extension against resistance (did not test PF/DF while external fixation hardware in place). ASSESSMENT AND PLAN Neuro: (10/16/2024) Acute Left MEASUREMENT PSYCHOLOGIST CVA Left temporal ICH likely hemorrhagic transformation of ischemic stroke - ICH Management: - Monitor neurostatus with neurochecks Q4H - Prevent further expansion with goal SBP <160 (see cards) - 10/16 NSGY consult: Ct head, MRI - Daily NIHSS: NIH Stroke Scale: NIH Level of Conciousness (Provider): 0 NIH LOC Questions (Provider): 0 NIH LOC Commands (Provider): 0 NIH Best Gaze (Provider): 0 NIH Visual (Provider): 0 NIH Facial Palsy (Provider): 0 NIH Left Arm Motor (Provider): 0 NIH Right Arm Motor (Provider): 1 NIH Left Leg Motor (Provider): 2 NIH Right Leg Motor (Provider): 3 NIH Limb Ataxia (Provider): 0 NIH Sensory (Provider): 0 NIH Best Language (Provider): 0 NIH Dysarthria (Provider): 0 NIH Extinction and Inattention (Provider): 0 NIH Total Score (Provider): 6 - Imaging: - 10/16 CTA H/N: Examination is equivocal for mid/distal left posterior cerebral artery occlusion. Artifact from venous contamination and vessel tortuosity limits characterization, and this may reflect a vessel bifurcation. As such, presence of infarct with hemorrhagic conversion is not definitive, and underlying mass would be difficult to exclude on the basis of CT alone. MRI with and without contrast is advised to aid characterization, to include MR angiography to more convincingly assess patency of the left posterior cerebral artery. - 10/16 20:4700: Initial CT H: Left Temperooccipital ICH likely hemorrhagic transformation of left MEASUREMENT PSYCHOLOGIST stroke, ICH, mild mass effect - 10/17: 6H-stability CT H: mild increased edema surrounding ICH with 3 mm R-pickard MLS. Exam otherwise not significantly changed - 10/18 CTH follow up: unchanged hematoma with surrounding edema in L temporal occipital lobes - 10/21 MRI B: Grossly stable parenchymal hemorrhage with surrounding edema centered in the left temporooccipital region, which could relate to hemorrhagic transformation of recent left MEASUREMENT PSYCHOLOGIST territory infarct. No progressive mass effect. - Cytotoxic Cerebral Edema Management: - Goal Na 135-145 Recent Labs 10/20/24 0808 10/20/24 1531 10/21/24 0000 10/22/24 0023 SODIUM 140 143 141 138 OSMOLALITY 296 304 298 292 CHLORIDE 99 102 101 102 - Hemorrhage presumably 2/2 ischemic stroke etiology; evaluation for cause and source: - Complete TTE (see cards) - Obtain LDL level and statin therapy if indicated (see cards) - Obtain HA1C level (see endo) - Defer antiplatelet therapy and therapeutic anticoagulation - Consider urine drug screen on admission if no stroke risk factors - Consider hypercoagulability panel 24H-post tPA if no stroke risk factors - Initiate VTE prophylaxis after bleed stability established (see heme) - Initial CVA Management: - 10/16 Stroke alert performed; summary of imaging findings: as above - No TNk as hemorrhagic conversion - 10/16 NSGY consulted - Ongoing CVA management: - Hold Antiplatelets given hemorrhagic transformation - Daily NIHSS (see above) - Stroke etiology presumed to be cardioembolic based on the TOAST Criteria. Stroke risk factors include atrial fib.. - Complete TTE (see cards) - Obtain LDL level and statin therapy if indicated (see cards) - Obtain HA1C level (see endo) - Initiate antiplatelet therapy within 48H of admission (see cards) - Initiate VTE prophylaxis immediately if no tPA given or 24H post-thrombectomy if performed (see heme) - Develop therapeutic anticoagulation plan, if indicated based on CVA etiology (see cards) - Consider urine drug screen on admission if no stroke risk factors - Consider hypercoagulability panel 24H-post tPA if no stroke risk factors Pain/Sedation management: - Gabapentin 400 mg TID - Tylenol 650mg Q4H PRN Psych: No Current Issues Pulm: Bilateral Pulmonary Edema Respiratory Rate - set (bpm): 12 O2 Sat (%): 97 % (10/22 0530) O2 Device: Nocturnal CPAP/BIPAP (10/22 0400) - Goal SpO2 >92%; wean FiO2 as tolerated - [id number], encourage pulmonary toileting - Duoneb Q6H PRN - BiPAP for air hunger - 10/21 tolerated NC during the day with nocturnal BiPAP - Pulmonary edema - 10/17 BNP: 962 - 10/17 Given Lasix 100 mg total during day shift for fluid goal -1L - 10/18 Given Lasix 120 mg total during day shift for fluid goal -1 to -2 L - 10/19 Continuing diuresis with Lasix 60 mg + Diamox 250 mg concurrently to target negative fluid goal for respiratory status - 10/20 Diamox 500 mg IV - 10/21 Diamox 500 mg IV - 10/22: transition to PO furosemide 20 mg daily Imaging: - 10/17 CXR: pulmonary edema worse compared to prior - 10/21 CXR: improved compared to 10/17; stable to prior day Cards: Atrial Fibrillation HTN Temp: [96.6 F (35.9 C)-97.8 F (36.6 C)] 96.6 F (35.9 C) Pulse (Heart Rate): [53-77] 59 Resp Rate: [12-24] 15 BP: (111-177)/(55-80) 126/66 O2 Sat (%): [93 %-99 %] 97 % HTN: - Goal SBP <160, MAP >65 - Home antihypertensives: - Current regimen: - PRN labetalol and hydralazine - Amlodipine 10 mg daily (10/21 increase due to decrease in carvedilol) - Holding Coreg 6.25 mg Q12H (10/21 decrease from 12.5 due to bradycardia; further bradycardia 10/22 AM) - Afib: - Hold AC for now given ICH - Consider restarting Eliquis day 10 after stroke - Carvedilol for rate control as above Imaging & labs: - 10/17 TTE: technically difficult study; LVEF 60 - 65%, mild concentric LVH. No hemodynamically significant valve disease. - 10/16 troponin: 6 - 10/17 trop repeat for air hunger: - 10/16 ECG: AFib, interfascicular block Renal/: No Current Issues Fluid Balance: - Goal: -1 L to -2 L - 10/20 Diamox 500 mg - 10/21 Diamox 500 mg - 10/22 transition to PO furosemide 20 mg daily; discontinue Diamox as surpassing I&O target - Beard cath placed 10/17 for close I/O monitoring; discontinue 10/22 Intake/Output Summary (Last 24 hours) at 10/22/2024 0723 Last data filed at 10/22/2024 0628 Gross per 24 hour Intake 1431.05 ml Output 5450 ml Net -4018.95 ml - Daily Chem 10; electrolytes replaced per [facility] protocol Recent Labs 10/21/24 0000 10/22/24 0023 SODIUM 141 138 POTASSIUM 4.1 4.1 CHLORIDE 101 102 CO2 34* 32* BUN 16 15 CREATSERUM 0.65* 0.76 0.56* PHOSPHORUS 3.2 3.3 MAGNESIUM 2.0 2.0 ICA 5.01 5.26 GI/Nutrition: No Current Issues No results for input(s): "ALBUMIN", "BILIDIRECT", "BILITOTAL", "ALKPHOS", "ALT", "AST", "TP", "AMYLASE", "LIPASE" in the last 72 hours. - DIET CARB CONTROLLED - [place] Swallow Screening Result: passed=cleared for oral intake Bowel regimen: - Last Bowel Movement: 10/21/24 - Senna, miralax Stress ulcer prophylaxis: - not indicated Endo: DM Type 2 - Goal blood glucose 140-180 - 10/17 Endo consulted - Endo sign off 10/22 - Ok to titrate regimen 10-20% as needed, otherwise reach out to Endo for further guidance - Current regimen - Insulin glargine 28 U Q24H - Insulin SSI Q6H with 6:1 carb coverage Recent Labs 10/21/24 1134 10/21/24 1800 10/21/24202210/22/24 0023 GLUCOSE 147 166 184* 138 ID: Wound Dehiscence - Chronic Right foot s/p debridement with podiatry Podiatry and ID consulted for osteomyelitis in RLE Recent Labs 10/21/24 0000 10/22/24 0023 WBC 6.63 6.47 - Temp (24hrs), Av.1 F (36.2 C), Min:96.6 F (35.9 C), Max:97.8 F (36.6 C) - PRN Tylenol for T>100.4F - Most recent and positive cultures: Date Collected Source Result Date Finalized 10/18 Staph nasal swab P 10/17 Blood culture NG 06/24 10/18 (Follow up on date collected from outside hospital) Wound culture (outside hospital) Brandin albicans of foot wound 10/18 - Antiinfectives: Start Date Antiinfective Coverage Course Length Stop Date 10/16 Meropenem 11/22 10/16 Vancomycin 11/22 10/18 micafungin Brandin (on OSH wound culture) TBD TBD - Foot osteomyelitis - 10/17 ID (Team 5) consulted for abx: agree with repeating blood cultures, follow P cultures from OSH, agree with vanc + meropenem - Meropenem duration 6 weeks, EOT 11/22/2024 - Vancomycin duration 6 weeks, EOT - 10/18 Added micafungin for brandin on wound culture from OSH - Infectious Diseases to see 10/22, will assist with stop date Heme/Onc: Anemia of Chronic Disease Recent Labs 10/21/24 0000 10/22/24 0023 WBC 6.63 6.47 RBC 4.17* 4.46 HGB 10.8* 11.6* HCT 34.8* 36.4* PLATELET 228 236 - Goal plt >100, INR <1.4, Hgb >7 DVT prophylaxis: - SCD - Lovenox DVT ppx - No Eliquis anticoagulation for at least 14 days from ICH - Can consider Eliquis at 10 days post-ICH pending clinical course Musc: RLE chronic wound - PT/OT consulted and following - Current Activity Order: Bed rest - 10/17 ID and Podiatry consulted - 10/18 OSH Cushion Worker who did fixation Dr. Ramon Garcia DPM, reach out 10/19 for surgical recommendations to pass onto [facility] Podiatry team - Imaging: - 10/18 R foot xray 3 views: Limited examination as above without acute osseous abnormality. Possibledebridement site along the posterior superior calcaneal margin. Fall Risk: - Assessed for patient fall risk and discussed safety measures during rounding. Social/Dispo: - Code status: Full Code - /: Medications reconciled - Discharge planning per PCRM/SW. Complexity. Obesity, Class III Body mass index is 53.07 kg/m . - Follow with PCP for dietary and lifestyle modifications. Wound Documentation ICU Checklist: [x] Assess pain Presence of Pain: denies pain/discomfort Presence of Pain Score (Auto-calculated): 0 [x] Both SAT & SBT [x] Choice of analgesia/ sedation See neuro [x] Delirium Overall CAM-ICU: Negative [x] Early mobility PT/OT consulted?: Yes CURRENT AM-PAC Mobility Raw Score: 8 CURRENT AM-PAC Mobility Functional Limitation: 86.62% Impaired in Basic Mobility [x] Family Engagement Primary Emergency Contact: Norma Rosas ([facility]) Last updated: 10/21 family updated at bedside [x] Get lines out [place]: Beard: inserted 10/17, (indication: diuresis, fluid goals), discontinue 10/21 Rectal tube: Enteral access: Central lines: Central Line LDAs Active Central Line Access Devices Name Placement date Placement time Site Days PICC Line - Single Lumen 10/16/24224910/16/242249 -- 5 Central Line Indications: Medication Requiring Central Venous Administration - fci antibiotics Left PICC line from OSH If patient has multiple lines, please choose the answers of the next two questions to correlate with the lines listed above in descending order Can line/s be removed today? Select all that apply Line 1, no cannot be removed (PICC) Dressing/s Clean/Dry/Intact?: Select all that apply Line 1, Dressing not clean, dry, intact; nursing notified (PICC) Discussed with NCCU Attending, Dr. Trip Keller MD 10/22/24 7:23 AM Check the treatment team to find the assigned neurocritical care provider (resident, fellow, DISTRIBUTION FIELD ENGINEER, orPA) or page/call the corresponding number below [facility] (Beds [id number]): [place] # [phone], pager #[phone] [facility] (Beds 7063-8505, [address], and overflow): [place] #: [phone], pager #[phone] Cosigned by Daniel Dominique MD at 10/22/2024 4:37 PM EDT Associated attestation - Daniel Dominique MD - 10/22/2024 4:37 PM EDT I personally evaluated and examined the patient with the resident to develop the plan as documented. Neurology: Acute L temporo-occipital ICH, IVH concerning for hemorrhagic transformation of ischemic stroke - etiology of stroke is likely cardio-embolic in the setting of pAfib Cerebral edema, mass effect and MLS of the brain - Most recent CTH with stable - SBP <160, MAP >65, eunatremia, Plt >100K and INR <1.4 - Hold all therapeutic anticoagulation and antiplatelets - Atorvastatin - PT/OT/GEARMAN evaluation - Continue gabapentin for peripheral neuropathy Pulmonary: Acute hypoxic respiratory failure TODD Pulmonary edema - acute Bilateral pleural effusion Oxygen Therapy O2 Sat (%): 96 % O2 Device: nasal cannula Flow (L/min): 2 - PRN ABG - Close airway watch, at risk for airway loss and intubation - Continue diuresis with IV Lasix/Diamox with I&Os goal -500 to -1L per day - Follow up on CXR ID: R heel diabetic ulcer with osteomyelitis S/p excisional debridement down to bone on 10/11 with podiatry, with repeated excisional debridement of wound and external fixator placement for nonweightbearing status with podiatry on 10/15 MRSE bacteremia Wound culture at OSH was positive for MSSA, Brandin albicans, Enterococcus faecalis, Strep mitis/oralis, Proteus penneri, Bacteroides spp., and Clostridium ramosum - Continue IV Vancomycin and meropenem. Initial plan for 6 weeks, added micafungin - ID on board - Blood cultures here are NTD - PRN Tylenol for T>100.4F - Podiatry on board Other supportive care as outlined below Patient is critically ill due to Acute L temporo-occipital ICH, IVH concerning for hemorrhagic transformation of ischemic stroke. Total critical care time 32min Daniel Dominique * Olivier Kaufman Jr., [facility] - 10/22/2024 12:56 AM EDT Department of Pharmacy Pharmacokinetics Progress Note Patient: Lani Zaragoza Room/Bed: 1040/A Assessment and Plan: Based upon drug level assessment and interpretation (steady state), no changes to vancomycin dose or dosing interval are indicated at this time. A pharmacist will continue to follow and order drug levels and adjust dosing as clinically appropriate. Vancomycin regimen at time of level: Vancomycin 750 mg IV every 12 hours Last Dose Administered: Dose: Date: Time: 750 mg 10/21 1156 Levels: 18.3 mcg/mL drawn at 2305 on 10/21. Level was a trough. Most Recent Labs: WBC Count Date Value Ref Range Status 10/22/2024 6.47 3.73 - 10.10 K/uL Final BUN Date Value Ref Range Status 10/21/2024 16 7 - 25 mg/dL Final Creatinine Date Value Ref Range Status 10/21/2024 0.76 0.70 - 1.30 mg/dL Final 10/21/2024 0.65 (L) 0.70 - 1.30 mg/dL Final I/O last 3 completed shifts: In: 1396.1 [P.O.:360; I.V.:24.3; IV Piggyback:1011.8] Out: 4900 [Urine:4900] Estimated Creatinine Clearance: 138 mL/min (by C-G formula based on SCr of 0.76 mg/dL). Ongoing Vancomycin Monitoring: The following trough goal is recommended for ongoing therapy based on the suspected/confirmed source of infection and today s calculations: Goal trough range: 15-20 mcg/mL If therapy is to be continued after discharge, please contact pharmacy for appropriate dosing. Please feel free to contact me with any further questions. Name: Olivier Kaufman Jr. [facility] Phone: [phone] Date/Time: 10/22/2024 12:56 AM * Sangita Valenzuela, [facility] - 10/21/2024 4:42 PM EDT Department of Pharmacy Anticoagulant/Antithrombotic Progress Note Patient: Lani Zaragoza Room/Bed: 1040/A Assessment/Plan: Based upon review of laboratory results, intake/output, and drug level assessment and interpretation, I have changed the Enoxaparin dose and/or dosing interval to 30 mg SQ every 12 hr to start at 2330 on 10/21/24. If necessary, I have modified the orders in IHIS to reflect the above plan. Current Prophylaxis Regimen: Enoxaparin Dose/Frequency: 40mg subq Q12H Desired Therapeutic Peak Concentration: 0.2 - 0.4 IU/mL Last Doses Administered: Drug/Dose: Date: Time: 40mg 10/21/24 1152 Anti-Xa (LMWH) Level: 0.43IU/mL drawn at 1555 on 10/21/24 and was a 4 hour post-dose level drawn on time. Last labs: Hemoglobin Date Value Ref Range Status 10/21/2024 10.8 (L) 13.4 - 16.8 g/dL Final Hematocrit Date Value Ref Range Status 10/21/2024 34.8 (L) 39.6 - 48.8 % Final Platelet Count Date Value Ref Range Status 10/21/2024 228 146 - 337 K/uL Final INR Date Value Ref Range Status 10/16/2024 1.1 0.9 - 1.1 Final Estimated Creatinine Clearance: 138 mL/min (by C-G formula based on SCr of 0.76 mg/dL). Please feel free to contact me with any further questions. Name: Sangita Valenzuela RPH Phone: [phone] Date/Time: 10/21/2024 4:42 PM * Germain Valle MD - 10/21/2024 10:02 AM EDT Images from the original note were not included. 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 Aware will need insulin at discharge. Fall Risk: Assessed for patient fall risk and discussed safety measures during rounding. We will review glucoses; however, primary team should continue to check blood glucoses daily and reach out to our service with urgent issues DIABETES DISCHARGE PLAN Please contact our team on day of discharge for definitive recs. QGENDA :TEAM 2 Tentative discharge plan: (Please use the Diabetes Discharge Order Set: Diabetes Orders - for those patients discharged on INSULIN) - If orals or non-insulin injectables recommended, will need to order them outside of the Diabetes Orderset. -resume metformin Discharge Diet: DIET CARB CONTROLLED- 60 Grams per Meal Patient Education: Your target blood sugar is 80-130 mg/dl fasting and under 180 mg/dl nonfasting. Patient needs new insulin scripts at discharge: ASK PATIENT. Basal/Mealtime - Basal: U300 Glargine PENS with needles, dose 28 units daily. (Or insurance covered equivalent.) No Titration. - Mealtime time insulin: FixedvsFlexible: Fixed: U100 Lispro Pens with [place] MAX DAILY DOSE 60 10 Units for Large Meal or 5 Units for Small Meal PLUS Correction Scale Subcutaneous every meal andat bedtime Correction Scale: (Copy and paste into "Note to Pharmacy") Custom: 151-200 = 2 units 201-250 = 4 units 251-300 = 6 units 301-350 = 8 units 351-400 = 10 units Diabetes Supplies: Glucose monitoring supplies for ACHS: Glucose test strips: dispense 150 with 1 refill - Patient prefers any brand or substitute brand covered by insurance, Lancets: dispense 150 with 1 refill, and alcohol swabs: dispense 200 with 1 refill The patient will need script for new glucometer: no: Patient prefers any brand or substitute brand covered by insurance Continuous Glucose Monitoring Devices: Continue home CGM (does not need new script) Other Diabetes Supplies: Glucagon(Gvoke HypoPen 2-Pack) 1 MG/0.2ML Solution Auto-injector Follow up needed: PCP within 1- 2 weeks CC: Hyperglycemia History of Present Illness: Lani Mila is a 69 y.o. year old male who is seen at the bedside. He was resting comfortably when rounded on this morning Current Diet Orders Procedures DIET CARB CONTROLLED 1:1 supervision with small snacks when BiPAP is OFF Standing Status: Standing Number of Occurrences: 1 Daily Glucose Review: Review of Systems Diabetes: Negative for hypoglycemia Physical Exam Constitutional: obese male in no acute distress. Pulmonary/Chest: Respirations even and unlabored Temp: [97 F (36.1 C)-98.1 F (36.7 C)] 97 F (36.1 C) Pulse (Heart Rate): [51-72] 66 Resp Rate: [14-21] 19 BP: (123-140)/(65-66) 140/66 O2 Sat (%): [94 %-98 %] 96 %Admission (Dosing) Weight: (!) 172 kg (379 lb 3.1 oz) Most recent entered Weight: (!) 163 kg (359 lb 5.6 oz) Body mass index is 53.07 kg/m . Background History Lani Zaragoza is a 69 year old male with PMH of A-fib and type 2 diabetes mellitus who was a transferred from OSH where he originally presented for management of chronic foot wound. Upon planned discharge 10/16 a stroke code was called and CTH revealed hemorrhagic stroke. [facility] was [facility] further management. He is admitted to [facility]. Diabetes History: Type of Diabetes: Type 2 Diabetes Mellitus (T2DM) Date of diagnosis: 2023 Outpatient physician: PCP Diabetes Complications: peripheral neuropathy Date of most recent dilated eye exam: unknown DKA occurrences: none Home blood glucoses: He is checking his blood sugars with Dexcom Home diabetes medications: Basal: toujeo unknown dose (no recent fill history) Prandial: none Correction: none Non-insulin Injectables: none Orals: metformin BP Medication(s): carvedilol, amlodipine, and hydralazine Lipid Medication(s): none Recent A1c: Lab Results Component Value Date HGBA1C 10.5 (H) 10/16/2024 Lab Results Component Value Date CHOLESTEROL 165 10/16/2024 TRIG 113 10/16/2024 HDL 37 (L) 10/16/2024 LDLCALC 105 (H) 10/16/2024 Lab Results Component Value Date SODIUM 141 10/21/2024 POTASSIUM 4.1 10/21/2024 CHLORIDE 101 10/21/2024 CO2 34 (H) 10/21/2024 BUN 16 10/21/2024 CREATSERUM 0.76 10/21/2024 CREATSERUM 0.65 (L) 10/21/2024 GLUCOSE 124 10/21/2024 No results found for: "CREATURINE", "MICROALBUMIN", "MICALBCREAT" Lab Results Component Value Date ALT 13 10/16/2024 No results found for: "PREALBUMIN" Cardiac echo: EF = Results for orders placed during the hospital encounter of 10/16/24 ECHOCARDIOGRAM 10/17/2024 (Final) Interpretation Summary Technically difficult study. The left ventricular chamber size and systolic function are normal. LVEF 60-65%. Mild concentric LVH. The right ventricular chamber size and systolic function are normal. Bi-atrial enlargement. There is no hemodynamically significant valvular disease. Estimated RVSP 49 mmHg. No right to left shunt with agitated saline. * Dillan Guzman MD - 10/21/2024 8:49 AM EDT I have independently seen and examined the patient on 10/21/24. I agree with the history, examination, assessment and plan as documented by the DISTRIBUTION FIELD ENGINEER with my changes/additions added. Patient is a 69 yo M with a hx of poorly controlled DM2 with neuropathy, HTN, TODD, pafib on Eliquisthat was held for surgical procedure, R heel diabetic ulcer with osteomyelitis S/p excisional debridement down to bone on 10/11 with podiatry, MRSE bacteremia on Vancomycin and meropenem with repeatedexcisional debridement of wound and external fixator placement for nonweightbearing status with podiatry on 10/15 who was discharged to SNF and presented with aphasia and altered mental status. Found to have an acute L temporo-occipital ICH, IVH and mass effect. Transferred to NCCU Interval History: No acute overnight events Scheduled Meds: acetaZOLAMIDE 500 mg Intravenous Once amLODIPine 5 mg Oral Daily Atorvastatin 40 mg Oral QHS carveDILOL 12.5 mg Oral Q12H enoxaparin 40 mg Subcutaneous Q12HNS Gabapentin 400 mg Oral TID insulin glargine 28 Units Subcutaneous Q24H Insulin lispro Subcutaneous 4x daily w/meals, HS meropenem 1 g Intravenous Q8HNS micafungin 100 mg Intravenous Q24H Polyethylene glycol 17 g Oral Q12H Senna 8.6 mg Oral Q12H vancomycin 750 mg Intravenous Q12HNS Labs: Chem 7: Lab Results Component Value Date SODIUM 141 10/21/2024 POTASSIUM 4.1 10/21/2024 CHLORIDE 101 10/21/2024 CO2 34 (H) 10/21/2024 GLUCOSE 124 10/21/2024 BUN 16 10/21/2024 CREATSERUM 0.76 10/21/2024 CREATSERUM 0.65 (L) 10/21/2024 BUNCREARATIO 21 10/21/2024 OSMOLALITY 298 10/21/2024 GFR >90 10/21/2024 GFR 57 (L) 10/21/2024 CBC: Lab Results Component Value Date WBC 6.63 10/21/2024 HGB 10.8 (L) 10/21/2024 HCT 34.8 (L) 10/21/2024 PLATELET 228 10/21/2024 MCV 83.5 10/21/2024 Physical Exam: Vital Signs: Blood pressure 123/65, pulse 66, temperature 97 F (36.1 C), resp. rate 21, height 1.753 m (5' 9"), weight (!) 163 kg (359 lb 5.6 oz), SpO2 96%. General: no acute distress HEENT: normocephalic, atraumatic Cardiovascular: +S1S2, irregular rhythm, +1 edema, + distal pulses, capillary refill < 3 seconds Pulmonary: Reduced to auscultate at bases Abdominal: soft, nontender, nondistended, active bowel sounds Extremities: R foot debridement, dressing is on, external fixator Skin: no rash Neurology: awake, alert, oriented to person and place (hospital), mild dysarthria, facial droop, follows simple commands in all ext, slightly weaker on the R Assessment and Plan: Neurology: Acute L temporo-occipital ICH, IVH concerning for hemorrhagic transformation of ischemic stroke - etiology of stroke is likely cardio-embolic in the setting of pAfib Cerebral edema, mass effect and MLS of the brain - Neurochecks with pupillometer - Most recent CTH with stable - Obtain MRI brain W/Wo contrast when able - SBP <160, MAP >65, eunatremia, Plt >100K and INR <1.4 - Hold all therapeutic anticoagulation and antiplatelets - Atorvastatin - PT/OT/GEARMAN evaluation - Continue gabapentin for peripheral neuropathy Pulmonary: Acute hypoxic respiratory failure TODD Pulmonary edema - acute Bilateral pleural effusion Oxygen Therapy O2 Sat (%): 96 % O2 Device: nasal cannula Flow (L/min): 2 - PRN ABG - Close airway watch, at risk for airway loss and intubation - Weaning BiPAP nicely to nocturnal - Continue diuresis with IV Lasix/Diamox with I&Os goal -500 to -1L per day - Follow up on CXR Cardiovascular: Essential HTN HLD pAfib - Hold Eliquis in the setting of ICH - SBP goal< 160, MAP goal >65. PRN Hydralazine and Labetalol. off Nicardipine gtt - Continue Coreg, amlodipine - TTE with EF of 60-65%, bi-atrial enlargement. No hemodynamic significant valvular disease Nephrology: - Lasix/Diamox as above GI/Nutrition: Diet - Bowel regimen to prevent constipation Endocrinology: Poorly controlled DM with hyperglycemia - A1c of 10.5 - Endocrinology on board and managing, scheduled insulin - Goal blood glucose 140-180 ID: R heel diabetic ulcer with osteomyelitis S/p excisional debridement down to bone on 10/11 with podiatry, with repeated excisional debridement of wound and external fixator placement for nonweightbearing status with podiatry on 10/15 MRSE bacteremia Wound culture at OSH was positive for MSSA, Brandin albicans, Enterococcus faecalis, Strep mitis/oralis, Proteus penneri, Bacteroides spp., and Clostridium ramosum - Continue IV Vancomycin and meropenem. Initial plan for 6 weeks, added micafungin - ID on board - Blood cultures here are NTD - PRN Tylenol for T>100.4F - Podiatry on board Heme/Onc: - Goal plt >100, INR <1.4, Hgb >7 - VTE prophylaxis: - SCDs - Chemical prophylaxis - LVX Acute deconditioning - PT/OT consulted and following - Mobility as tolerated Additional details and other supportive care as per the DISTRIBUTION FIELD ENGINEER note from the same day This patient is critically ill, unstable and is at high risk of imminent or life threatening deterioration due to acute hypoxic respiratory failure, acute pulmonary edema, pleural effusions, acute L ICH, cerebral edema, IVH, bacteremia, R heel diabetic foot ulcer with osteomyelitis, poorly controlled diabetes, HTN, afib requiring BiPAP, close airway watch, close neurologic and hemodynamic monitoring. I personally spent 31 minutes in the intensive care unit providing critical care services to the patient today independent of procedures, teaching and other care providers. Management of the above was performed. My time managing this critically ill patient included review of interval history, laboratories, radiology and consultation reports; performing a physical examination; discussing the patient with the multi-disciplinary team and managing life sustaining therapies to prevent imminent clinical deterioration. Dillan Guzman MD Neurocritical Care Attending * Keara Castillo, SUPERVISOR NEWSPAPER DELIVERIES-PROGRAM COORDINATOR EXECUTIVE EDUCATION - 10/21/2024 7:42 AM EDT NEUROCRITICAL CARE PROGRESS NOTE HOSPITAL VISIT DEMOGRAPHICS Patient: Lani Zaragoza Code status: Full Code Admission date: 10/16/2024 8:33 PM Hospital days: LOS: 5 days CHIEF COMPLAINT stroke HISTORY OF PRESENT ILLNESS Lani Zaragoza is a 69 y.o. male with a past history of afib on Eliquis who presents as hemorrhagic stroke alert. A stroke alert was called for STAT consultation. LKW 1200. Pt was hospitalized at OSH for chronic foot wound since 10/09 and is s/p debridement with podiatry. He was meant to dc today to SNF but around 1200 he became acutely confused and aphasic. Stroke alert was called and CTH demonstrated L temporal hemorrage, possible hemorrhagic mass with 4mm MLS. He is on Eliquis for his hx of afib, but this has been held since 10/09 given foot procedures. He was placed on cardene gtt prior to transfer, but was paused about 20 minutes prior to arrival. He was [facility] management. INTERVAL HISTORY SINCE ADMISSION 10/16/2024: Admitted to NCCU 10/17: held MRI B given airway watch; BiPAP for air hunger; Endo consult for hyperglycemia; sodium goal >140 with 3% boluses; lasix for fluid goal 10/18: Relaxed SBP <160; increased Coreg, off Cardene gtt; Lasix 60 twice for respiratory status; CTH in morning stable; Endo increased insulin regimen; ID recs updated 10/19: Continuing to diurese for negative fluid goal/respiratory status. 10/20: BNP over night, order MRI B, diamox 500 for diuresis 10/21: Diamox 500 for diuresis PHYSICAL EXAM GENERAL: Alert, no acute distress, flat affect HEENT: normocephalic, no scalp wounds nor lesions CARDIO: +S1S2, NSR to sinus bee on telemetry, no m/r/g, no edema PULM: Clear to diminished to auscultation bilaterally, equal chest rise, NC ABDOMINAL: soft, nontender, nondistended, active bowel sounds EXTREMITIES: no wounds or lesions VASCULAR: + distal pulses, capillary refill <3 seconds, has left arm PICC line with no erythema,purulent drainage, or signs of infection and dressing is C/D/I. NEURO: Awake, alert, oriented to name, place, month with choices, year with choices, states he is in the hospital for a stroke, following commands in all extremities. Very mild dysarthria. No facial droop. PERRL, gaze midline, EOMI tracking provider. Hearing grossly intact. Shoulder shrug 5/5 bilaterally. Tongue midline. LUE 4/5 strength, LLE 3/5 strength; RUE 4/5 strength, RLE with 3/5 strength with hip flexion/knee extension against resistance (did not test PF/DF while external fixation hardware in place) ASSESSMENT AND PLAN Neuro: (10/16/2024) Acute Left MEASUREMENT PSYCHOLOGIST CVA Left temporal ICH likely hemorrhagic transformation of ischemic stroke - ICH Management: - Monitor neurostatus with neurochecks Q4H - Prevent further expansion with goal SBP <160 (see cards) - 10/16 NSGY consult: Ct head, MRI - Daily NIHSS: NIH Stroke Scale: NIH Level of Conciousness (Provider): 0 NIH LOC Questions (Provider): 0 NIH LOC Commands (Provider): 0 NIH Best Gaze (Provider): 0 NIH Visual (Provider): 0 NIH Facial Palsy (Provider): 0 NIH Left Arm Motor (Provider): 0 NIH Right Arm Motor (Provider): 1 NIH Left Leg Motor (Provider): 2 NIH Right Leg Motor (Provider): 3 NIH Limb Ataxia (Provider): 0 NIH Sensory (Provider): 0 NIH Best Language (Provider): 0 NIH Dysarthria (Provider): 1 NIH Extinction and Inattention (Provider): 0 NIH Total Score (Provider): 8 - Imaging: - 10/16 CTA H/N: Examination is equivocal for mid/distal left posterior cerebral artery occlusion. Artifact from venous contamination and vessel tortuosity limits characterization, and this may reflect a vessel bifurcation. As such, presence of infarct with hemorrhagic conversion is not definitive, and underlying mass would be difficult to exclude on the basis of CT alone. MRI with and without contrast is advised to aid characterization, to include MR angiography to more convincingly assess patency of the left posterior cerebral artery. - 10/16 20:4700: Initial CT H: Left Temperooccipital ICH likely hemorrhagic transformation of left MEASUREMENT PSYCHOLOGIST stroke, ICH, mild mass effect - 10/17: 6H-stability CT H: mild increased edema surrounding ICH with 3 mm R-pickard MLS. Exam otherwise not significantly changed - 10/18 CTH follow up: unchanged hematoma with surrounding edema in L temporal occipital lobes - / MRI B: ordered and pending - Cytotoxic Cerebral Edema Management: - Goal Na 135-145 Recent Labs 10/20/24 0003 10/20/24 0808 10/20/24 1531 10/21/24 0000 SODIUM 142 140 143 141 OSMOLALITY 300 296 304 298 CHLORIDE 99 99 102 101 - Hemorrhage presumably 2/2 ischemic stroke etiology; evaluation for cause and source: - Complete TTE (see cards) - Obtain LDL level and statin therapy if indicated (see cards) - Obtain HA1C level (see endo) - Defer antiplatelet therapy and therapeutic anticoagulation - Consider urine drug screen on admission if no stroke risk factors - Consider hypercoagulability panel 24H-post tPA if no stroke risk factors - Initiate VTE prophylaxis after bleed stability established (see heme) - Initial CVA Management: - 10/16 Stroke alert performed; summary of imaging findings: as above - No TNk as hemorrhagic conversion - 10/16 NSGY consulted - Ongoing CVA management: - Hold Antiplatelets given hemorrhagic transformation - Daily NIHSS (see above) - Stroke etiology presumed to be cardioembolic based on the TOAST Criteria. Stroke risk factors include atrial fib.. - Complete TTE (see cards) - Obtain LDL level and statin therapy if indicated (see cards) - Obtain HA1C level (see endo) - Initiate antiplatelet therapy within 48H of admission (see cards) - Initiate VTE prophylaxis immediately if no tPA given or 24H post-thrombectomy if performed (see heme) - Develop therapeutic anticoagulation plan, if indicated based on CVA etiology (see cards) - Consider urine drug screen on admission if no stroke risk factors - Consider hypercoagulability panel 24H-post tPA if no stroke risk factors Pain/Sedation management: - Gabapentin 400 mg TID - Tylenol 650mg Q4H PRN Psych: No Current Issues Pulm: Bilateral Pulmonary Edema Respiratory Rate - set (bpm): 12 O2 Sat (%): 98 % (10/21 599) O2 Device: nasal cannula (10/21 599) Flow (L/min): 2 (10/21 599) - Goal SpO2 >92%; wean FiO2 as tolerated - [id number], encourage pulmonary toileting - Duoneb Q6H PRN - BiPAP for air hunger - 10/21 tolerated NC during the day with nocturnal BiPAP - Pulmonary edema - 10/17 BNP: 962 - 10/17 Given Lasix 100 mg total during day shift for fluid goal -1L - 10/18 Given Lasix 120 mg total during day shift for fluid goal -1 to -2 L - 10/19 Continuing diuresis with Lasix 60 mg + Diamox 250 mg concurrently to target negative fluid goal for respiratory status - 10/20 Diamox 500 mg IV - 10/21 Diamox 500 mg IV - Consider scheduling oral diuretic prior to transfer to floor Imaging: - 10/17 CXR: pulmonary edema worse compared to prior - 10/21 CXR: improved compared to 10/17; stable to prior day Cards: Atrial Fibrillation HTN Temp: [97.2 F (36.2 C)-98.1 F (36.7 C)] 97.3 F (36.3 C) Pulse (Heart Rate): [51-72] 56 Resp Rate: [14-21] 20 BP: (123)/(65) 123/65 O2 Sat (%): [88 %-98 %] 98 % HTN: - Goal SBP <160, MAP >65 - Home antihypertensives: - Current regimen: - PRN labetalol and hydralazine - Amlodipine 10 mg daily (10/21 increase due to decrease in carvedilol) - Coreg 6.25 mg Q12H (10/21 decrease from 12.5 due to bradycardia) - Afib: - Hold AC for now given ICH - Carvedilol for rate control as above Imaging & labs: - 10/17 TTE: technically difficult study; LVEF 60 - 65%, mild concentric LVH. No hemodynamically significant valve disease. - 10/16 troponin: 6 - 10/17 trop repeat for air hunger: - 10/16 ECG: AFib, interfascicular block Renal/: No Current Issues Fluid Balance: - Goal: -1 L to -2 L - 10/20 Diamox 500 mg - 10/21 Diamox 500 mg - Beard cath placed 10/17 for close I/O monitoring; discontinue 10/21 Intake/Output Summary (Last 24 hours) at 10/21/2024 0742 Last data filed at 10/21/2024 0604 Gross per 24 hour Intake 1141.43 ml Output 3185 ml Net -2043.57 ml - Daily Chem 10; electrolytes replaced per NCCU protocol Recent Labs 10/20/24 0003 10/20/24 0808 10/20/24 1531 10/21/24 0000 SODIUM 142 < > 143 141 POTASSIUM 3.8 < > 4.1 4.1 CHLORIDE 99 < > 102 101 CO2 39* < > 36* 34* BUN 16 < > 16 16 CREATSERUM 0.66* < > 0.67* 0.76 PHOSPHORUS 3.3 -- -- 3.2 MAGNESIUM 1.8 -- -- 2.0 ICA 4.85 -- -- 5.01 < > = values in this interval not displayed. GI/Nutrition: No Current Issues No results for input(s): "ALBUMIN", "BILIDIRECT", "BILITOTAL", "ALKPHOS", "ALT", "AST", "TP", "AMYLASE", "LIPASE" in the last 72 hours. - DIET CARB CONTROLLED - Del Swallow Screening Result: passed=cleared for oral intake Bowel regimen: - Last Bowel Movement: 10/21/24 - Senna, miralax Stress ulcer prophylaxis: - not indicated Endo: DM Type 2 - Goal blood glucose 140-180 - 10/17 Endo consulted - Current regimen - Insulin glargine 28 U Q24H - Insulin SSI Q6H with 6:1 carb coverage Recent Labs 10/20/24 1531 10/20/24 1605 10/20/24 2236 10/21/24 0000 GLUCOSE 162 158 134 124 ID: Wound Dehiscence - Chronic Right foot s/p debridement with podiatry Podiatry and ID consulted for osteomyelitis in RLE Recent Labs 10/20/24 0003 10/21/24 0000 WBC 6.78 6.63 - Temp (24hrs), Av.7 F (36.5 C), Min:97.2 F (36.2 C), Max:98.1 F (36.7 C) - PRN Tylenol for T>100.4F - Most recent and positive cultures: Date Collected Source Result Date Finalized 10/18 Staph nasal swab P 10/17 Blood culture NG 06/24 10/18 (Follow up on date collected from outside hospital) Wound culture (outside hospital) Brandin albicans of foot wound 10/18 - Antiinfectives: Start Date Antiinfective Coverage Course Length Stop Date 10/16 Meropenem 11/22 10/16 Vancomycin 11/22 10/18 micafungin Brandin (on OSH wound culture) TBD TBD - Foot osteomyelitis - 10/17 ID (Team 5) consulted for abx: agree with repeating blood cultures, follow P cultures from OSH, agree with vanc + meropenem - 10/18 Added micafungin for brandin on wound culture from OSH - 10/22 ask ID for duration of micafungin Heme/Onc: Anemia of Chronic Disease Recent Labs 10/20/24 0003 10/21/24 0000 WBC 6.78 6.63 RBC 4.10* 4.17* HGB 10.7* 10.8* HCT 34.2* 34.8* PLATELET 235 228 - Goal plt >100, INR <1.4, Hgb >7 DVT prophylaxis: - SCD - Lovenox DVT ppx - No Eliquis anticoagulation for at least 14 days from ICH [place]: RLE chronic wound - PT/OT consulted and following - Current Activity Order: Bed rest - 10/17 ID and Podiatry consulted - 10/18 OSH Cushion Worker who did fixation Dr. Ramon Garcia DPM, reach out 10/19 for surgical recommendations to pass onto [facility] Podiatry team - Imaging: - 10/18 R foot xray 3 views: Limited examination as above without acute osseous abnormality. Possibledebridement site along the posterior superior calcaneal margin. Fall Risk: - Assessed for patient fall risk and discussed safety measures during rounding. Social/Dispo: - Code status: Full Code - /: Medications reconciled - Discharge planning per PCRM/SW. Complexity. Obesity, Class III Body mass index is 53.07 kg/m . - Follow with PCP for dietary and lifestyle modifications. Wound Documentation ICU Checklist: [x] Assess pain Presence of Pain: denies pain/discomfort Presence of Pain Score (Auto-calculated): 0 [x] Both SAT & SBT [x] Choice of analgesia/ sedation See neuro [x] Delirium Overall CAM-ICU: Negative [x] Early mobility PT/OT consulted?: Yes CURRENT AM-PAC Mobility Raw Score: 8 CURRENT AM-PAC Mobility Functional Limitation: 86.62% Impaired in Basic Mobility [x] Family Engagement Primary Emergency Contact: Norma Rosas (HCPOA) Last updated: 10/21 family updated at bedside [x] Get lines out [place]: [place]: inserted 10/17, (indication: diuresis, fluid goals), discontinue 10/21 Rectal tube: Enteral access: Central lines: Central Line LDAs Active Central Line Access Devices Name Placement date Placement time Site Days PICC Line - Single Lumen 10/16/24224910/16/242249 -- 4 Central Line Indications: Medication Requiring Central Venous Administration - fci antibiotics Left PICC line from OSH If patient has multiple lines, please choose the answers of the next two questions to correlate with the lines listed above in descending order Can line/s be removed today? Select all that apply Line 1, no cannot be removed (PICC) Dressing/s Clean/Dry/Intact?: Select all that apply Line 1, Dressing not clean, dry, intact; nursing notified (PICC) Discussed with NCCU Attending, Dr. Thomas Castillo, SUPERVISOR NEWSPAPER DELIVERIES-PROGRAM COORDINATOR EXECUTIVE EDUCATION 10/21/24 7:42 AM Check the treatment team to find the assigned neurocritical care provider (resident, fellow, DISTRIBUTION FIELD ENGINEER, orPA) or page/call the corresponding number below NCC1 (Beds [phone]): [place] # [phone], pager #[phone] NCC2 (Beds 7554-8661, 12 Jing, and overflow): [place] #: [phone], pager #[phone] * Maryann Douglas RPH - 10/20/2024 12:19 PM EDT Department of Pharmacy Pharmacokinetics Progress Note Patient: Lani Zaragoza Room/Bed: 1040/A Assessment and Plan: Based upon drug level assessment and interpretation (not at steady state), I have changed the vancomycin dose and/or dosing interval to 750 mg IV every 12 hours to start at 1230 on 10/20. A pharmacist will continue to follow and order drug levels and adjust dosing as clinically appropriate. I have modified the orders in IHIS to reflect the above plan. Vancomycin regimen at time of level: Vancomycin 1000 mg IV every 12 hours Last Dose Administered: Dose: Date: Time: 1000 mg 10/19 2336 Levels: 20.1 mcg/mL drawn at 1110 on 10/20. Level was a trough. Most Recent Labs: WBC Count Date Value Ref Range Status 10/20/2024 6.78 3.73 - 10.10 K/uL Final BUN Date Value Ref Range Status 10/20/2024 16 7 - 25 mg/dL Final Creatinine Date Value Ref Range Status 10/20/2024 0.66 (L) 0.70 - 1.30 mg/dL Final I/O last 3 completed shifts: In: 1852.9 [P.O.:940; I.V.:24; IV Piggyback:888.9] Out: 3925 [Urine:3925] Estimated Creatinine Clearance: 159 mL/min (A) (by C-G formula based on SCr of 0.66 mg/dL (L)). Ongoing Vancomycin Monitoring: The following trough goal is recommended for ongoing therapy based on the suspected/confirmed source of infection and today s calculations: Goal trough range: 15-20 mcg/mL If therapy is to be continued after discharge, please contact pharmacy for appropriate dosing. Please feel free to contact me with any further questions. Name: Maryann Douglas RPH Phone: [phone] Date/Time: 10/20/2024 12:19 PM * Germain Valle MD - 10/20/2024 10:36 AM EDT Images from the original note were not included. 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 Aware will need insulin at discharge. Fall Risk: Assessed for patient fall risk and discussed safety measures during rounding. We will review glucoses; however, primary team should continue to check blood glucoses daily and reach out to our service with urgent issues DIABETES DISCHARGE PLAN Please contact our team on day of discharge for definitive recs. QGENDA :TEAM 2 Tentative discharge plan: (Please use the Diabetes Discharge Order Set: Diabetes Orders - for those patients discharged on INSULIN) - If orals or non-insulin injectables recommended, will need to order them outside of the Diabetes Orderset. -resume metformin Discharge Diet: DIET CARB CONTROLLED- 60 Grams per Meal Patient Education: Your target blood sugar is 80-130 mg/dl fasting and under 180 mg/dl nonfasting. Patient needs new insulin scripts at discharge: ASK PATIENT. Basal/Mealtime - Basal: U300 Glargine PENS with needles, dose 28 units daily. (Or insurance covered equivalent.) No Titration. - Mealtime time insulin: FixedvsFlexible: Fixed: U100 Lispro Pens with [place] MAX DAILY DOSE 60 10 Units for Large Meal or 5 Units for Small Meal PLUS Correction Scale Subcutaneous every meal andat bedtime Correction Scale: (Copy and paste into "Note to Pharmacy") Custom: 151-200 = 2 units 201-250 = 4 units 251-300 = 6 units 301-350 = 8 units 351-400 = 10 units Diabetes Supplies: Glucose monitoring supplies for ACHS: Glucose test strips: dispense 150 with 1 refill - Patient prefers any brand or substitute brand covered by insurance, Lancets: dispense 150 with 1 refill, and alcohol swabs: dispense 200 with 1 refill The patient will need script for new glucometer: no: Patient prefers any brand or substitute brand covered by insurance Continuous Glucose Monitoring Devices: Continue home CGM (does not need new script) Other Diabetes Supplies: Glucagon(Gvoke HypoPen 2-Pack) 1 MG/0.2ML Solution Auto-injector Follow up needed: PCP within 1- 2 weeks CC: Hyperglycemia History of Present Illness: Lani Zaragoza is a 69 y.o. year old male who is seen at the bedside. We reviewed his glucose trendsand plans for insulin dosing as above Current Diet Orders Procedures DIET CARB CONTROLLED 1:1 supervision with small snacks when BiPAP is OFF Standing Status: Standing Number of Occurrences: 1 Daily Glucose Review: Review of Systems Diabetes: Negative for symptoms of hypoglycemia Physical Exam Constitutional: obese male in no acute distress. Pulmonary/Chest: Respirations even and unlabored Neurological: Alert and interactive Psych: Cooperative Temp: [97.2 F (36.2 C)-98.8 F (37.1 C)] 97.2 F (36.2 C) Pulse (Heart Rate): [57-84] 70 Resp Rate: [11-22] 18 O2 Sat (%): [88 %-99 %] 88 %Admission (Dosing) Weight: (!) 172 kg (379 lb 3.1 oz) Most recent entered Weight: (!) 163 kg (359 lb 5.6 oz) Body mass index is 53.07 kg/m . Background History Lani Zaragoza is a 69 year old male with PMH of A-fib and type 2 diabetes mellitus who was a transferred from OSH where he originally presented for management of chronic foot wound. Upon planned discharge 10/16 a stroke code was called and CTH revealed hemorrhagic stroke. He was [facility] further management. He is admitted to [facility]. Diabetes History: Type of Diabetes: Type 2 Diabetes Mellitus (T2DM) Date of diagnosis: 2023 Outpatient physician: PCP Diabetes Complications: peripheral neuropathy Date of most recent dilated eye exam: unknown DKA occurrences: none Home blood glucoses: He is checking his blood sugars with Dexcom Home diabetes medications: Basal: toujeo unknown dose (no recent fill history) Prandial: none Correction: none Non-insulin Injectables: none Orals: metformin BP Medication(s): carvedilol, amlodipine, and hydralazine Lipid Medication(s): none Recent A1c: Lab Results Component Value Date HGBA1C 10.5 (H) 10/16/2024 Lab Results Component Value Date CHOLESTEROL 165 10/16/2024 TRIG 113 10/16/2024 HDL 37 (L) 10/16/2024 LDLCALC 105 (H) 10/16/2024 Lab Results Component Value Date SODIUM 140 10/20/2024 POTASSIUM 4.0 10/20/2024 CHLORIDE 99 10/20/2024 CO2 35 (H) 10/20/2024 BUN 16 10/20/2024 CREATSERUM 0.66 (L) 10/20/2024 GLUCOSE 136 10/20/2024 No results found for: "CREATURINE", "MICROALBUMIN", "MICALBCREAT" Lab Results Component Value Date ALT 13 10/16/2024 No results found for: "PREALBUMIN" Cardiac echo: EF = Results for orders placed during the hospital encounter of 10/16/24 ECHOCARDIOGRAM 10/17/2024 (Final) Interpretation Summary Technically difficult study. The left ventricular chamber size and systolic function are normal. LVEF 60-65%. Mild concentric LVH. The right ventricular chamber size and systolic function are normal. Bi-atrial enlargement. There is no hemodynamically significant valvular disease. Estimated RVSP 49 mmHg. No right to left shunt with agitated saline. * Dillan Guzman MD - 10/20/2024 9:49 AM EDT I have independently seen and examined the patient on 10/20/24. I agree with the history, examination, assessment and plan as documented by the DISTRIBUTION FIELD ENGINEER with my changes/additions added. Patient is a 69 yo M with a hx of poorly controlled DM2 with neuropathy, HTN, TODD, pafib on Eliquisthat was held for surgical procedure, R heel diabetic ulcer with osteomyelitis S/p excisional debridement down to bone on 10/11 with podiatry, MRSE bacteremia on Vancomycin and meropenem with repeatedexcisional debridement of wound and external fixator placement for nonweightbearing status with podiatry on 10/15 who was discharged to SNF and presented with aphasia and altered mental status. Found to have an acute L temporo-occipital ICH, IVH and mass effect. Transferred to NCCU Interval History: No acute overnight events, staying off BiPAP for a longer period of time Scheduled Meds: amLODIPine 5 mg Oral Daily Atorvastatin 40 mg Oral QHS carveDILOL 12.5 mg Oral Q12H enoxaparin 40 mg Subcutaneous Q12HNS Gabapentin 400 mg Oral TID insulin glargine 28 Units Subcutaneous Q24H Insulin lispro Subcutaneous 4x daily w/meals, HS meropenem 1 g Intravenous Q8HNS micafungin 100 mg Intravenous Q24H Polyethylene glycol 17 g Oral Q12H Senna 8.6 mg Oral Q12H vancomycin 1,000 mg Intravenous Q12HNS Labs: Chem 7: Lab Results Component Value Date SODIUM 140 10/20/2024 POTASSIUM 4.0 10/20/2024 CHLORIDE 99 10/20/2024 CO2 35 (H) 10/20/2024 GLUCOSE 136 10/20/2024 BUN 16 10/20/2024 CREATSERUM 0.66 (L) 10/20/2024 BUNCREARATIO 24 10/20/2024 OSMOLALITY 296 10/20/2024 GFR >90 10/20/2024 CBC: Lab Results Component Value Date WBC 6.78 10/20/2024 HGB 10.7 (L) 10/20/2024 HCT 34.2 (L) 10/20/2024 PLATELET 235 10/20/2024 MCV 83.4 10/20/2024 Physical Exam: Vital Signs: Blood pressure 170/78, pulse 69, temperature 97.2 F (36.2 C), resp. rate 19, height 1.753 m (5' 9"), weight (!) 163 kg (359 lb 5.6 oz), SpO2 91%. General: no acute distress HEENT: normocephalic, atraumatic Cardiovascular: +S1S2, irregular rhythm, +1 edema, + distal pulses, capillary refill < 3 seconds Pulmonary: Reduced to auscultate at bases Abdominal: soft, nontender, nondistended, active bowel sounds Extremities: R foot debridement, dressing is on, external fixator Skin: no rash Neurology: awake, alert, oriented to person and place (hospital), dysarthric, facial droop, followssimple commands in all ext, slightly weaker on the R Assessment and Plan: Neurology: Acute L temporo-occipital ICH, IVH concerning for hemorrhagic transformation of ischemic stroke - etiology of stroke is likely cardio-embolic in the setting of pAfib Cerebral edema, mass effect and MLS of the brain - Neurochecks with pupillometer - Most recent CTH with stable - Obtain MRI brain W/Wo contrast when able - SBP <160, MAP >65, eunatremia, Plt >100K and INR <1.4 - Hold all therapeutic anticoagulation and antiplatelets - Atorvastatin - PT/OT/GEARMAN evaluation - Continue gabapentin for peripheral neuropathy Pulmonary: Acute hypoxic respiratory failure TODD Pulmonary edema - acute Bilateral pleural effusion Oxygen Therapy O2 Sat (%): 91 % O2 Device: room air Flow (L/min): 2 Oxygen Concentration (%): 30 - PRN ABG - Close airway watch, at risk for airway loss and intubation - Wean BiPAP as tolerated, staying longer off BiPAP - Continue diuresis with IV Lasix/Diamox with I&Os goal -500 to -1L per day - Follow up on CXR Cardiovascular: Essential HTN HLD pAfib - Hold Eliquis in the setting of ICH - SBP goal< 160, MAP goal >65. PRN Hydralazine and Labetalol. off Nicardipine gtt - Continue Coreg, amlodipine - TTE with EF of 60-65%, bi-atrial enlargement. No hemodynamic significant valvular disease Nephrology: - Lasix as above GI/Nutrition: - Advance diet as tolerated - Bowel regimen to prevent constipation Endocrinology: Poorly controlled DM with hyperglycemia - A1c of 10.5 - Endocrinology on board and managing, scheduled insulin - Goal blood glucose 140-180 ID: R heel diabetic ulcer with osteomyelitis S/p excisional debridement down to bone on 10/11 with podiatry, with repeated excisional debridement of wound and external fixator placement for nonweightbearing status with podiatry on 10/15 MRSE bacteremia Wound culture at OSH was positive for Proteus, Enterococcus, Morganella, strep, anaerobes and brandin albicans. - Continue IV Vancomycin and meropenem. Initial plan for 6 weeks, added micafungin - ID on board - Blood cultures here are NTD - PRN Tylenol for T>100.4F - Podiatry on board Heme/Onc: - Goal plt >100, INR <1.4, Hgb >7 - VTE prophylaxis: - SCDs - Chemical prophylaxis - LVX Acute deconditioning - PT/OT consulted and following - Mobility as tolerated Additional details and other supportive care as per the DISTRIBUTION FIELD ENGINEER note from the same day This patient is critically ill, unstable and is at high risk of imminent or life threatening deterioration due to acute hypoxic respiratory failure, acute pulmonary edema, pleural effusions, acute L ICH, cerebral edema, IVH, bacteremia, R heel diabetic foot ulcer with osteomyelitis, poorly controlled diabetes, HTN, afib requiring BiPAP, close airway watch, close neurologic and hemodynamic monitoring. I personally spent 33 minutes in the intensive care unit providing critical care services to the patient today independent of procedures, teaching and other care providers. Management of the above was performed. My time managing this critically ill patient included review of interval history, laboratories, radiology and consultation reports; performing a physical examination; discussing the patient with the multi-disciplinary team and managing life sustaining therapies to prevent imminent clinical deterioration. Dillan Guzman MD Neurocritical Care Attending * Keara Castillo APRN-[facility] - 10/20/2024 7:13 AM EDT NEUROCRITICAL CARE PROGRESS NOTE HOSPITAL VISIT DEMOGRAPHICS Patient: Lani Zaragoza Code status: Full Code Admission date: 10/16/2024 8:33 PM Hospital days: LOS: 4 days CHIEF COMPLAINT stroke HISTORY OF PRESENT ILLNESS Lani Zaragoza is a 69 y.o. male with a past history of afib on Eliquis who presents as hemorrhagic stroke alert. A stroke alert was called for STAT consultation. LKW 1200. Pt was hospitalized at OSH for chronic foot wound since 10/09 and is s/p debridement with podiatry. He was meant to dc today to SNF but around 1200 he became acutely confused and aphasic. Stroke alert was called and CTH demonstrated L temporal hemorrage, possible hemorrhagic mass with 4mm MLS. He is on Eliquis for his hx of afib, but this has been held since 10/09 given foot procedures. He was placed on cardene gtt prior to transfer, but was paused about 20 minutes prior to arrival. He was [facility] further management. INTERVAL HISTORY SINCE ADMISSION 10/16/2024: Admitted to NCCU 10/17: held MRI B given airway watch; BiPAP for air hunger; Endo consult for hyperglycemia; sodium goal >140 with 3% boluses; lasix for fluid goal 10/18: Relaxed SBP <160; increased Coreg, off Cardene gtt; Lasix 60 twice for respiratory status; CTH in morning stable; Endo increased insulin regimen; ID recs updated 10/19: Continuing to diurese for negative fluid goal/respiratory status. 10/20: BNP over night, order MRI B, diamox 500 for diuresis PHYSICAL EXAM GENERAL: Alert, no acute distress HEENT: normocephalic, no scalp wounds nor lesions CARDIO: +S1S2, NSR on telemetry, no m/r/g, no edema PULM: Rhonchorous to auscultation bilaterally, equal chest rise on BIPAP ABDOMINAL: soft, nontender, nondistended, active bowel sounds EXTREMITIES: no wounds or lesions VASCULAR: + distal pulses, capillary refill <3 seconds, has left arm PICC line with no erythema,purulent drainage, or signs of infection and dressing is C/D/I. NEURO: Awake, oriented to name, place (answers "hospital," unable to name hospital), month with choices, year with choices, states he is in the hospital for a stroke, following commands in all extremities. Very mild dysarthria. No facial droop. PERRL, gaze midline, EOMI tracking provider. Hearing grossly intact. Shoulder shrug 5/5 bilaterally. Tongue midline. LUE 4/5 strength, LLE 3/5 strength; RUE 4/5 strength, RLE with 3/5 strength with hip flexion/knee extension against resistance (did not test PF/DF while external fixation hardware in place) ASSESSMENT AND PLAN Neuro: (10/16/2024) Acute Left MEASUREMENT PSYCHOLOGIST CVA Left temporal ICH likely hemorrhagic transformation of ischemic stroke - ICH Management: - Monitor neurostatus with neurochecks Q4H - Prevent further expansion with goal SBP <160 (see cards) - 10/16 NSGY consult: Ct head, MRI - Daily NIHSS: NIH Stroke Scale: NIH Level of Conciousness (Provider): 0 NIH LOC Questions (Provider): 0 NIH LOC Commands (Provider): 0 NIH Best Gaze (Provider): 0 NIH Visual (Provider): 0 NIH Facial Palsy (Provider): 0 NIH Left Arm Motor (Provider): 0 NIH Right Arm Motor (Provider): 1 NIH Left Leg Motor (Provider): 2 NIH Right Leg Motor (Provider): 3 NIH Limb Ataxia (Provider): 0 NIH Sensory (Provider): 0 NIH Best Language (Provider): 0 NIH Dysarthria (Provider): 1 NIH Extinction and Inattention (Provider): 0 NIH Total Score (Provider): 8 - Imaging: - 10/16 CTA H/N: Examination is equivocal for mid/distal left posterior cerebral artery occlusion. Artifact from venous contamination and vessel tortuosity limits characterization, and this may reflect a vessel bifurcation. As such, presence of infarct with hemorrhagic conversion is not definitive, and underlying mass would be difficult to exclude on the basis of CT alone. MRI with and without contrast is advised to aid characterization, to include MR angiography to more convincingly assess patency of the left posterior cerebral artery. - 10/16 20:4700: Initial CT H: Left Temperooccipital ICH likely hemorrhagic transformation of left MEASUREMENT PSYCHOLOGIST stroke, ICH, mild mass effect - 10/17: 6H-stability CT H: mild increased edema surrounding ICH with 3 mm R-pickard MLS. Exam otherwise not significantly changed - 10/18 CTH follow up: unchanged hematoma with surrounding edema in L temporal occipital lobes - / MRI B: ordered and pending - Cytotoxic Cerebral Edema Management: - Goal Na >140 - Bolus as needed for goal Recent Labs 10/19/24 0014 10/19/24 1556 10/20/24 0003 10/20/24 0808 SODIUM 143 140 142 140 OSMOLALITY 300 298 300 296 CHLORIDE 100 96* 99 99 - Hemorrhage presumably 2/2 ischemic stroke etiology; evaluation for cause and source: - Complete TTE (see cards) - Obtain LDL level and statin therapy if indicated (see cards) - Obtain HA1C level (see endo) - Defer antiplatelet therapy and therapeutic anticoagulation - Consider urine drug screen on admission if no stroke risk factors - Consider hypercoagulability panel 24H-post tPA if no stroke risk factors - Initiate VTE prophylaxis after bleed stability established (see heme) - Initial CVA Management: - 10/16 Stroke alert performed; summary of imaging findings: as above - No TNk as hemorrhagic conversion - 10/16 NSGY consulted - Ongoing CVA management: - Hold Antiplatelets given hemorrhagic transformation - Daily NIHSS (see above) - Stroke etiology presumed to be cardioembolic based on the TOAST Criteria. Stroke risk factors include atrial fib.. - Complete TTE (see cards) - Obtain LDL level and statin therapy if indicated (see cards) - Obtain HA1C level (see endo) - Initiate antiplatelet therapy within 48H of admission (see cards) - Initiate VTE prophylaxis immediately if no tPA given or 24H post-thrombectomy if performed (see heme) - Develop therapeutic anticoagulation plan, if indicated based on CVA etiology (see cards) - Consider urine drug screen on admission if no stroke risk factors - Consider hypercoagulability panel 24H-post tPA if no stroke risk factors Pain/Sedation management: - Gabapentin 400 mg TID - Tylenol 650mg Q4H PRN Psych: No Current Issues Pulm: Bilateral Pulmonary Edema Respiratory Rate - set (bpm): 12 O2 Sat (%): 97 % (10/20 1100) O2 Device: room air (10/20 0800) Oxygen Concentration (%): 30 (10/20 0229) pH/PCO2/PO2/HCO3: 7.44/63/78/43 (10/19 1452) - Goal SpO2 >92%; wean FiO2 as tolerated - [id number], encourage pulmonary toileting - Duoneb Q6H PRN - BiPAP for air hunger - Pulmonary edema - 10/17 Given Lasix 100 mg total during day shift for fluid goal -1L - 10/18 Given Lasix 120 mg total during day shift for fluid goal -1 to -2 L - 10/19 Continuing diuresis with Lasix 60 mg + Diamox 250 mg concurrently to target negative fluid goal for respiratory status - 10/20 Diamox 500 mg; dose Lasix over night for diuresis goal - 10/17 CXR: pulmonary edema worse compared to prior - 10/18 CXR: no major change, stable moderately sized bilateral pleural effusions - 10/19 CXR: No significant change - 10/20 CXR: pending Cards: Atrial Fibrillation HTN Temp: [97.2 F (36.2 C)-98.8 F (37.1 C)] 97.3 F (36.3 C) Pulse (Heart Rate): [57-84] 69 Resp Rate: [14-20] 19 O2 Sat (%): [88 %-99 %] 97 % - Goal SBP <160, MAP >65 - Home antihypertensives: - Current regimen: - PRN labetalol and hydralazine - Amlodipine 5 mg daily - Coreg 12.5 mg Q12H - 10/17 TTE: technically difficult study; LVEF 60 - 65%, mild concentric LVH. No hemodynamically significant valve disease. - 10/16 troponin: - 10/17 trop repeat for air hunger: 10/17 BNP: 962 - 10/16 ECG: AFib, interfascicular block - Statin Therapy: Indicated if LDL >70; began No results for input(s): "CHOLESTEROL", "TRIG", "HDL", "LDLDIRECT" in the last 72 hours. - Afib: Hold AC for now given ICH Renal/: No Current Issues Fluid Balance: - Goal: -1 L to -2 L - 10/20 Diamox 500 mg; dose with Lasix over night to achieve goal - Beard cath placed 10/17 for close I/O monitoring Intake/Output Summary (Last 24 hours) at 10/20/2024 1327 Last data filed at 10/20/2024 1118 Gross per 24 hour Intake 1626.29 ml Output 3735 ml Net -2108.71 ml - Daily Chem 10; electrolytes replaced per NCCU protocol Recent Labs 10/19/24 0014 10/19/24 1556 10/20/24 0003 10/20/24 0808 SODIUM 143 < > 142 140 POTASSIUM 3.5 < > 3.8 4.0 CHLORIDE 100 < > 99 99 CO2 37* < > 39* 35* BUN 12 < > 16 16 CREATSERUM 0.55* 0.60* < > 0.66* 0.66* PHOSPHORUS 3.3 -- 3.3 -- MAGNESIUM 2.0 -- 1.8 -- ICA 4.85 -- 4.85 -- < > = values in this interval not displayed. GI/Nutrition: No Current Issues No results for input(s): "ALBUMIN", "BILIDIRECT", "BILITOTAL", "ALKPHOS", "ALT", "AST", "TP", "AMYLASE", "LIPASE" in the last 72 hours. - DIET CARB CONTROLLED - [place] Swallow Screening Result: passed=cleared for oral intake Bowel regimen: - Last Bowel Movement: 10/19/24 - Senna, miralax Stress ulcer prophylaxis: - not indicated Endo: DM Type 2 - Goal blood glucose 140-180 - 10/17 Endo consulted - Current regimen - Insulin glargine 28 U Q24H - Insulin SSI Q6H with 6:1 carb coverage Recent Labs 10/19/24 1556 10/19/24 2114 10/20/24 0003 10/20/24 0808 GLUCOSE 177 149 143 136 ID: Wound Dehiscence - Chronic Right foot s/p debridement with podiatry Podiatry and ID consulted for osteomyelitis in RLE Recent Labs 10/19/24 0014 10/20/24 0003 WBC 8.75 6.78 - Hemphill Cx, procalcitonin, lactate - Temp (24hrs), Av.1 F (36.7 C), Min:97.2 F (36.2 C), Max:98.8 F (37.1 C) - PRN Tylenol for T>100.4F - Most recent and positive cultures: Date Collected Source Result Date Finalized 10/18 Staph nasal swab P 10/17 Blood culture NG 06/24 10/18 (Follow up on date collected from outside hospital) Wound culture (outside hospital) Brandin albicans of foot wound 10/18 - Antiinfectives: Start Date Antiinfective Coverage Course Length Stop Date 10/16 Meropenem 11/22 10/16 Vancomycin 11/22 10/18 micafungin Brandin (on OSH wound culture) TBD TBD - Foot osteomyelitis - 10/17 ID (Team 5) consulted for abx: agree with repeating blood cultures, follow P cultures from OSH, agree with vanc + meropenem - 10/18 Added micafungin for brandin on wound culture from OSH, updated ID recs - 10/20 discussed with ID to continue micafungin Heme/Onc: Anemia of Chronic Disease Recent Labs 10/19/24 00110/20/24 0003 WBC 8.75 6.78 RBC 4.26* 4.10* HGB 11.3* 10.7* HCT 35.8* 34.2* PLATELET 250 235 - Goal plt >100, INR <1.4, Hgb >7 DVT prophylaxis: - SCD - Lovenox DVT ppx - No Eliquis anticoagulation for at least 14 days from ICH [place]: RLE chronic wound - PT/OT consulted and following - Current Activity Order: Bed rest - 10/17 ID and Podiatry consulted - 10/18 OSH Cushion Worker who did fixation Dr. Ramon Garcia DPM, reach out 10/19 for surgical recommendations to pass onto [facility] Podiatry team - Imaging: - 10/18 R foot xray 3 views: Limited examination as above without acute osseous abnormality. Possibledebridement site along the posterior superior calcaneal margin. Fall Risk: - Assessed for patient fall risk and discussed safety measures during rounding. Social/Dispo: - Code status: Full Code - /: Medications reconciled - Discharge planning per PCRM/SW. Complexity. Obesity, Class III Body mass index is 53.07 kg/m . - Follow with PCP for dietary and lifestyle modifications. Wound Documentation ICU Checklist: [x] Assess pain Presence of Pain: denies pain/discomfort Presence of Pain Score (Auto-calculated): 0 [x] Both SAT & SBT [x] Choice of analgesia/ sedation See neuro [x] Delirium Overall CAM-ICU: Negative [x] Early mobility PT/OT consulted?: Yes CURRENT AM-PAC Mobility Raw Score: 8 CURRENT AM-PAC Mobility Functional Limitation: 86.62% Impaired in Basic Mobility [x] Family Engagement Primary Emergency Contact: Norma Rosas (HCPOA) Last updated: 10/20 family updated over the phone by MADHURI [x] Get lines out Milagros: Beard: inserted 10/17, (indication: diuresis, fluid goals) Rectal tube: Enteral access: Central lines: Central Line LDAs Active Central Line Access Devices Name Placement date Placement time Site Days PICC Line - Single Lumen 10/16/24224910/16/242249 -- 3 Central Line Indications: Medication Requiring Central Venous Administration - watermaster antibiotics Left PICC line from OSH If patient has multiple lines, please choose the answers of the next two questions to correlate with the lines listed above in descending order Can line/s be removed today? Select all that apply Line 1, no cannot be removed (PICC) Dressing/s Clean/Dry/Intact?: Select all that apply Line 1, Dressing not clean, dry, intact; nursing notified (PICC) Discussed with NCCU Attending, AHSAN Dick 10/20/24 1:27 PM Check the treatment team to find the assigned neurocritical care provider (resident, fellow, DISTRIBUTION FIELD ENGINEER, orPA) or page/call the corresponding number below NCC1 (Beds [phone]): [place] # [phone], pager #[phone] NCC2 (Beds [phone], 12 Jing, and overflow): [place] #: [phone], pager #[phone] * Yahir Munguia [facility] - 10/19/2024 7:11 PM EDT Department of Pharmacy Anticoagulant/Antithrombotic Progress Note Patient: Lani Zaragoza Room/Bed: 1040/A Assessment/Plan: Based upon review of laboratory results, intake/output, and drug level assessment and interpretation, I have changed the Enoxaparin dose and/or dosing interval to 40 mg SQ every 12 hr to start at 2330 on 10/19. If necessary, I have modified the orders in IHIS to reflect the above plan. Current Prophylaxis Regimen: Enoxaparin Dose/Frequency: 50mg subq Q12H Desired Therapeutic Peak Concentration: 0.2 - 0.4 IU/mL Last Doses Administered: Drug/Dose: Date: Time: 50mg 10/19 1130 Anti-Xa (LMWH) Level: 0.41IU/mL drawn at 1556 on 10/19 and was a 4 hour post-dose level drawn on time. Last labs: Hemoglobin Date Value Ref Range Status 10/19/2024 11.3 (L) 13.4 - 16.8 g/dL Final Hematocrit Date Value Ref Range Status 10/19/2024 35.8 (L) 39.6 - 48.8 % Final Platelet Count Date Value Ref Range Status 10/19/2024 250 146 - 337 K/uL Final INR Date Value Ref Range Status 10/16/2024 1.1 0.9 - 1.1 Final Estimated Creatinine Clearance: 159 mL/min (A) (by C-G formula based on SCr of 0.66 mg/dL (L)). Please feel free to contact me with any further questions. 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 Basal: Glargine 32->28 units at 1200 Prandial: none NPO-> Insulin lispro 1 unit per 6 grams of carbs ACHS and PRN Correction: Insulin lispro 1 unit per 25 mg/dl greater than 150 mg/dl ACHS Education: following with healthcare educator. Aware will need insulin at discharge. Fall Risk: Assessed for patient fall risk and discussed safety measures during rounding. We will review glucoses; however, primary team should continue to check blood glucoses daily and reach out to our service with urgent issues DIABETES DISCHARGE PLAN Please contact our team on day of discharge for definitive recs. QGENDA :TEAM 2 Tentative discharge plan: (Please use the Diabetes Discharge Order Set: Diabetes Orders - for those patients discharged on INSULIN) - If orals or non-insulin injectables recommended, will need to order them outside of the Diabetes Orderset. -resume metformin Discharge Diet: DIET CARB CONTROLLED- 60 Grams per Meal Patient Education: Your target blood sugar is 80-130 mg/dl fasting and under 180 mg/dl nonfasting. Patient needs new insulin scripts at discharge: ASK PATIENT. Basal/Mealtime - Basal: U300 Glargine PENS with needles, dose 28 units daily. (Or insurance covered equivalent.) No Titration. - Mealtime time insulin: FixedvsFlexible: Fixed: U100 Lispro Pens with [place] MAX DAILY DOSE 60 10 Units for Large Meal or 5 Units for Small Meal PLUS Correction Scale Subcutaneous every meal andat bedtime Correction Scale: (Copy and paste into "Note to Pharmacy") Custom: 151-200 = 2 units 201-250 = 4 units 251-300 = 6 units 301-350 = 8 units 351-400 = 10 units Diabetes Supplies: Glucose monitoring supplies for ACHS: Glucose test strips: dispense 150 with 1 refill - Patient prefers any brand or substitute brand covered by insurance, Lancets: dispense 150 with 1 refill, and alcohol swabs: dispense 200 with 1 refill The patient will need script for new glucometer: no: Patient prefers any brand or substitute brand covered by insurance Continuous Glucose Monitoring Devices: Continue home CGM (does not need new script) Other Diabetes Supplies: Glucagon(Gvoke HypoPen 2-Pack) 1 MG/0.2ML Solution Auto-injector Follow up needed: PCP within 1- 2 weeks CC: Hyperglycemia History of Present Illness: Lani Zaragoza is a 69 y.o. year old male who is seen at the bedside. Cr 0.55. He came off Bipap andpassed his swallow eval. Diet advanced to carb controlled, but no appetite. Glucoses ranging from 110- 245 mg/dl. Current Diet Orders Procedures DIET CARB CONTROLLED 1:1 supervision with small snacks when BiPAP is OFF Standing Status: Standing Number of Occurrences: 1 Current Regimen: Basal: [id number] units Q1500 Prandial: none NPO Enteral feeding: none Correction: Insulin Regular 2 units for every 50 mg/dl greater than 150mg/dl every 6 hours Daily Glucose Review: Date Daily glucose review TDD Basal Prandial/ Correction 10/17/2024 223/219, 236, 244, 252/252 32 16 16 10/18/2024 245/220, 212, 186, 236 41 32 9 10/19/2024 143, 138/110, 176 28 Review of Systems Diabetes: Negative for symptoms of hypoglycemia Physical Exam Constitutional: obese male in no acute distress. Pulmonary/Chest: Respirations even and unlabored on nasal cannula Musculoskeletal: No acute abnormalities noted Neurological: Alert and interactive Psych: Cooperative Temp: [96.4 F (35.8 C)-99.3 F (37.4 C)] 98.4 F (36.9 C) Pulse (Heart Rate): [64-88] 70 Resp Rate: [14-23] 20 O2 Sat (%): [88 %-99 %] 95 %Admission (Dosing) Weight: (!) 172 kg (379 lb 3.1 oz) Most recent entered Weight: (!) 163 kg (359 lb 5.6 oz) Body mass index is 53.07 kg/m . Background History Lani Zaragoza is a 69 year old male with PMH of A-fib and type 2 diabetes mellitus who was a transferred from OSH where he originally presented for management of chronic foot wound. Upon planned discharge 10/16 a stroke code was called and CTH revealed hemorrhagic stroke. He was sent to [facility] for further management. He is admitted to [facility]. Diabetes History: Type of Diabetes: Type 2 Diabetes Mellitus (T2DM) Date of diagnosis: 2023 Outpatient physician: PCP Diabetes Complications: peripheral neuropathy Date of most recent dilated eye exam: unknown DKA occurrences: none Home blood glucoses: He is checking his blood sugars with Dexcom Home diabetes medications: Basal: toujeo unknown dose (no recent fill history) Prandial: none Correction: none Non-insulin Injectables: none Orals: metformin BP Medication(s): carvedilol, amlodipine, and hydralazine Lipid Medication(s): none Recent A1c: Lab Results Component Value Date HGBA1C 10.5 (H) 10/16/2024 Lab Results Component Value Date CHOLESTEROL 165 10/16/2024 TRIG 113 10/16/2024 HDL 37 (L) 10/16/2024 LDLCALC 105 (H) 10/16/2024 Lab Results Component Value Date SODIUM 143 10/19/2024 POTASSIUM 3.5 10/19/2024 CHLORIDE 100 10/19/2024 CO2 37 (H) 10/19/2024 BUN 12 10/19/2024 CREATSERUM 0.60 (L) 10/19/2024 CREATSERUM 0.55 (L) 10/19/2024 GLUCOSE 138 10/19/2024 No results found for: "CREATURINE", "MICROALBUMIN", "MICALBCREAT" Lab Results Component Value Date ALT 13 10/16/2024 No results found for: "PREALBUMIN" Cardiac echo: EF = Results for orders placed during the hospital encounter of 10/16/24 ECHOCARDIOGRAM 10/17/2024 (Final) Interpretation Summary Technically difficult study. The left ventricular chamber size and systolic function are normal. LVEF 60-65%. Mild concentric LVH. The right ventricular chamber size and systolic function are normal. Bi-atrial enlargement. There is no hemodynamically significant valvular disease. Estimated RVSP 49 mmHg. No right to left shunt with agitated saline. * Sangita Valenzuela [facility] - 10/19/2024 1:11 PM EDT Department of Pharmacy Renal Documentation Note Patient: Lani Zaragoza Room/Bed: [facility]0/A Assessment and Plan: Pertinent Lab values: Estimated Creatinine Clearance: 174 mL/min (A) (by C-G formula based on SCr of 0.6 mg/dL (L)). Cystatin C Date Value Ref Range Status 10/19/2024 1.68 (H) 0.51 - 1.05 mg/L Final Body surface area is 2.65 meters squared. Based on the patient s serum cystatin C level,serum creatinine and body surface area, the estimatedcreatinine clearance is 95 mL/min. No adjustments to medication therapy are necessary at this time. A pharmacist will continue to follow patient and recommend drug levels and dose changes as clinically appropriate. Please contact with any questions, Name: Sangita Valenzuela RPH Phone: [phone] Date/Time: 10/19/2024 1:12 PM * Dillan Guzman MD - 10/19/2024 10:41 AM EDT I have independently seen and examined the patient on 10/19/24. I agree with the history, examination, assessment and plan as documented by the DISTRIBUTION FIELD ENGINEER with my changes/additions added. Patient is a 69 yo M with a hx of poorly controlled DM2 with neuropathy, HTN, TODD, pafib on Eliquisthat was held for surgical procedure, R heel diabetic ulcer with osteomyelitis S/p excisional debridement down to bone on 10/11 with podiatry, MRSE bacteremia on Vancomycin and meropenem with repeatedexcisional debridement of wound and external fixator placement for nonweightbearing status with podiatry on 10/15 who was discharged to SNF and presented with aphasia and altered mental status. Found to have an acute L temporo-occipital ICH, IVH and mass effect. Transferred to NCCU Interval History: On and off BiPAP, diuresing well with lasix Scheduled Meds: amLODIPine 5 mg Oral Daily Atorvastatin 40 mg Oral QHS carveDILOL 12.5 mg Oral Q12H enoxaparin 0.3 mg/kg (Dosing Weight) Subcutaneous Q12HNS Gabapentin 400 mg Oral TID insulin glargine 28 Units Subcutaneous Q24H Insulin lispro Subcutaneous 4x daily w/meals, HS meropenem 1 g Intravenous Q8HNS micafungin 100 mg Intravenous Q24H Polyethylene glycol 17 g Oral Daily Senna 8.6 mg Oral Daily vancomycin 1,000 mg Intravenous Q12HNS Labs: Chem 7: Lab Results Component Value Date SODIUM 143 10/19/2024 POTASSIUM 3.5 10/19/2024 CHLORIDE 100 10/19/2024 CO2 37 (H) 10/19/2024 GLUCOSE 138 10/19/2024 BUN 12 10/19/2024 CREATSERUM 0.60 (L) 10/19/2024 CREATSERUM 0.55 (L) 10/19/2024 BUNCREARATIO 20 10/19/2024 OSMOLALITY 300 10/19/2024 GFR >90 10/19/2024 GFR 62 10/19/2024 CBC: Lab Results Component Value Date WBC 8.75 10/19/2024 HGB 11.3 (L) 10/19/2024 HCT 35.8 (L) 10/19/2024 PLATELET 250 10/19/2024 MCV 84.0 10/19/2024 Physical Exam: Vital Signs: Blood pressure 170/78, pulse 70, temperature 98.8 F (37.1 C), resp. rate 15, height 1.753 m (5' 9"), weight (!) 163 kg (359 lb 5.6 oz), SpO2 97%. General: no acute distress HEENT: normocephalic, atraumatic Cardiovascular: +S1S2, irregular rhythm, +1 edema, + distal pulses, capillary refill < 3 seconds Pulmonary: Reduced to auscultate at bases Abdominal: soft, nontender, nondistended, active bowel sounds Extremities: R foot debridement, dressing is on, external fixator Skin: no rash Neurology: awake, alert, oriented to person and place (hospital), dysarthric, facial droop, followssimple commands in all ext, weaker on the R Assessment and Plan: Neurology: Acute L temporo-occipital ICH, IVH concerning for hemorrhagic transformation of ischemic stroke - etiology of stroke is likely cardio-embolic in the setting of pAfib Cerebral edema, mass effect and MLS of the brain - Neurochecks with pupillometer - Most recent CTH with stable - Obtain MRI brain W/Wo contrast when able - SBP <160, MAP >65, eunatremia, Plt >100K and INR <1.4 - Hold all therapeutic anticoagulation and antiplatelets - Atorvastatin - PT/OT/GEARMAN evaluation - Continue gabapentin for peripheral neuropathy Pulmonary: Acute hypoxic respiratory failure TODD Pulmonary edema - acute Bilateral pleural effusion Oxygen Therapy O2 Sat (%): 97 % O2 Device: nasal cannula Flow (L/min): 2 Oxygen Concentration (%): 40 - PRN ABG - Close airway watch, at risk for airway loss and intubation - Wean BiPAP as tolerated - Continue diuresis with IV Lasix with I&Os goal -500 to -1L per day, add diamox for some contracture alkalosis Cardiovascular: Essential HTN HLD pAfib - Hold Eliquis in the setting of ICH - SBP goal< 160, MAP goal >65. PRN Hydralazine and Labetalol. off Nicardipine gtt - Continue Coreg, amlodipine - TTE with EF of 60-65%, bi-atrial enlargement. No hemodynamic significant valvular disease Nephrology: - Lasix as above GI/Nutrition: - Advance diet as tolerated - Bowel regimen to prevent constipation Endocrinology: Poorly controlled DM with hyperglycemia - A1c of 10.5 - Endocrinology on board and managing, scheduled insulin - Goal blood glucose 140-180 ID: R heel diabetic ulcer with osteomyelitis S/p excisional debridement down to bone on 10/11 with podiatry, with repeated excisional debridement of wound and external fixator placement for nonweightbearing status with podiatry on 10/15 MRSE bacteremia Wound culture at OSH was positive for Proteus, Enterococcus, Morganella, strep, anaerobes and brandin albicans. Continue to follow up on cultures - Continue IV Vancomycin and meropenem. Initial plan for 6 weeks, add micafungin - ID on board - Blood cultures here are NTD - PRN Tylenol for T>100.4F - Podiatry on board Heme/Onc: - Goal plt >100, INR <1.4, Hgb >7 - VTE prophylaxis: - SCDs - Chemical prophylaxis - Start LVX Acute deconditioning - PT/OT consulted and following - Mobility as tolerated Additional details and other supportive care as per the DISTRIBUTION FIELD ENGINEER note from the same day This patient is critically ill, unstable and is at high risk of imminent or life threatening deterioration due to acute hypoxic respiratory failure, acute pulmonary edema, pleural effusions, acute L ICH, cerebral edema, IVH, bacteremia, R heel diabetic foot ulcer with osteomyelitis, poorly controlled diabetes, HTN, afib requiring BiPAP, close airway watch, close neurologic and hemodynamic monitoring. I personally spent 32 minutes in the intensive care unit providing critical care services to the patient today independent of procedures, teaching and other care providers. Management of the above was performed. My time managing this critically ill patient included review of interval history, laboratories, radiology and consultation reports; performing a physical examination; discussing the patient with the multi-disciplinary team and managing life sustaining therapies to prevent imminent clinical deterioration. Dillan Guzman MD Neurocritical Care Attending * Amelia Jordan PA-C - 10/19/2024 10:32 AM EDT NEUROCRITICAL CARE HISTORY AND PHYSICAL HOSPITAL VISIT DEMOGRAPHICS Patient: Lani Zaragoza Code status: Full Code Admission date: 10/16/2024 8:33 PM Hospital days: LOS: 3 days CHIEF COMPLAINT stroke HISTORY OF PRESENT ILLNESS Lani Zaragoza is a 69 y.o. male with a past history of afib on Eliquis who presents as hemorrhagic stroke alert. A stroke alert was called for STAT consultation. LKW 1200. Pt was hospitalized at OSH for chronic foot wound since 10/09 and is s/p debridement with podiatry. He was meant to dc today to SNF but around 1200 he became acutely confused and aphasic. Stroke alert was called and CTH demonstrated L temporal hemorrage, possible hemorrhagic mass with 4mm MLS. He is on Eliquis for his hx of afib, but this has been held since 10/09 given foot procedures. He was placed on cardene gtt prior to transfer, but was paused about 20 minutes prior to arrival. He was [facility] for further management. INTERVAL HISTORY SINCE ADMISSION 10/16/2024: Admitted to [facility] 10/17: held MRI B given airway watch; BiPAP for air hunger; Endo consult for hyperglycemia; sodium goal >140 with 3% boluses; lasix for fluid goal 10/18: Relaxed SBP <160; increased Coreg, off Cardene gtt; Lasix 60 twice for respiratory status; CTH in morning stable; Endo increased insulin regimen; ID recs updated 10/19: Continuing to diurese for negative fluid goal/respiratory status. PHYSICAL EXAM GENERAL: Alert, no acute distress HEENT: normocephalic, no scalp wounds nor lesions CARDIO: +S1S2, RRR, no m/r/g, no edema PULM: Rhonchorous to auscultation bilaterally, equal chest rise on BIPAP ABDOMINAL: soft, nontender, nondistended, active bowel sounds EXTREMITIES: no wounds or lesions VASCULAR: + distal pulses, capillary refill <3 seconds, has left arm PICC line with no erythema,purulent drainage, or signs of infection and dressing is C/D/I. NEURO: Awake, oriented to name, place (answers "hospital," unable to name hospital), month with choices, year with choices, following commands in all extremities. Mild dysarthria. No facial droop. PERRL, gaze midline, EOMI tracking provider. Hearing grossly intact. Shoulder shrug 5/5 bilaterally. To ngue midline. LUE 4/5 strength, LLE 3/5 strength; RUE 4/5 strength, RLE with 3/5 strength with hip flexion/knee extension against resistance (did not test PF/DF while external fixation hardware in place) ASSESSMENT AND PLAN Neuro: (10/16/2024) Acute Left MEASUREMENT PSYCHOLOGIST CVA Left temporal ICH likely hemorrhagic transformation of ischemic stroke - ICH Management: - Monitor neurostatus with neurochecks Q2H and Q4H at night - Prevent further expansion with goal SBP <160 (see cards) - 10/16 NSGY consult: Ct head, MRI - Daily NIHSS: NIH Stroke Scale: NIH Level of Conciousness (Provider): 0 NIH LOC Questions (Provider): 0 NIH LOC Commands (Provider): 0 NIH Best Gaze (Provider): 0 NIH Visual (Provider): 0 NIH Facial Palsy (Provider): 0 NIH Left Arm Motor (Provider): 0 NIH Right Arm Motor (Provider): 1 NIH Left Leg Motor (Provider): 2 NIH Right Leg Motor (Provider): 3 NIH Limb Ataxia (Provider): 0 NIH Sensory (Provider): 0 NIH Best Language (Provider): 0 NIH Dysarthria (Provider): 1 NIH Extinction and Inattention (Provider): 0 NIH Total Score (Provider): 8 - Imaging: - 10/16 CTA H/N: Examination is equivocal for mid/distal left posterior cerebral artery occlusion. Artifact from venous contamination and vessel tortuosity limits characterization, and this may reflect a vessel bifurcation. As such, presence of infarct with hemorrhagic conversion is not definitive, and underlying mass would be difficult to exclude on the basis of CT alone. MRI with and without contrast is advised to aid characterization, to include MR angiography to more convincingly assess patency of the left posterior cerebral artery. - 10/16 20:4700: Initial CT H: Left Temperooccipital ICH likely hemorrhagic transformation of left MEASUREMENT PSYCHOLOGIST stroke, ICH, mild mass effect - 10/17: 6H-stability CT H: mild increased edema surrounding ICH with 3 mm R-pickard MLS. Exam otherwise not significantly changed - 10/18 CTH follow up: unchanged hematoma with surrounding edema in L temporal occipital lobes - / MRI B: will consider re-ordering when pt able to tolerate flat - Cytotoxic Cerebral Edema Management: - Goal Na >140 - Bolus as needed for goal Recent Labs 10/17/24 1306 10/17/24 1725 10/18/24 0022 10/18/24 0411 10/18/24 0540 10/18/24 1345 10/19/24 0014 SODIUM 138 < > 140 143 142 142 143 OSMOLALITY 299 -- 302 -- -- 302 300 CHLORIDE 100 -- 103 -- -- 102 100 < > = values in this interval not displayed. - Hemorrhage presumably 2/2 ischemic stroke etiology; evaluation for cause and source: - Complete TTE (see cards) - Obtain LDL level and statin therapy if indicated (see cards) - Obtain HA1C level (see endo) - Defer antiplatelet therapy and therapeutic anticoagulation - Consider urine drug screen on admission if no stroke risk factors - Consider hypercoagulability panel 24H-post tPA if no stroke risk factors - Initiate VTE prophylaxis after bleed stability established (see heme) - Initial CVA Management: - 10/16 Stroke alert performed; summary of imaging findings: as above - No TNk as hemorrhagic conversion - 10/16 NSGY consulted - Ongoing CVA management: - Hold Antiplatelets given hemorrhagic transformation - Daily NIHSS (see above) - Stroke etiology presumed to be cardioembolic based on the TOAST Criteria. Stroke risk factors include atrial fib.. - Complete TTE (see cards) - Obtain LDL level and statin therapy if indicated (see cards) - Obtain HA1C level (see endo) - Initiate antiplatelet therapy within 48H of admission (see cards) - Initiate VTE prophylaxis immediately if no tPA given or 24H post-thrombectomy if performed (see heme) - Develop therapeutic anticoagulation plan, if indicated based on CVA etiology (see cards) - Consider urine drug screen on admission if no stroke risk factors - Consider hypercoagulability panel 24H-post tPA if no stroke risk factors Pain/Sedation management: - Gabapentin 400 mg TID - Tylenol 650mg Q4H PRN Psych: No Current Issues Pulm: Bilateral Pulmonary Edema Respiratory Rate - set (bpm): 10 O2 Sat (%): 97 % (10/19 1011) O2 Device: nasal cannula (10/19 1011) Flow (L/min): 2 (10/19 1011) Oxygen Concentration (%): 40 (10/19 0841) pH/PCO2/PO2/HCO3: 7.40/62/75/38 (10/19 0810) - Goal SpO2 >92%; wean FiO2 as tolerated - [id number], encourage pulmonary toileting - Duoneb Q6H PRN - BiPAP for air hunger - Pulmonary edema - 10/17 Given Lasix 100 mg total during day shift for fluid goal -1L - 10/18 Given Lasix 120 mg total during day shift for fluid goal -1 to -2 L - 10/19 Continuing diuresis with Lasix 60 mg + Diamox 250 mg concurrently to target negative fluid goal for respiratory status - 10/17 CXR: pulmonary edema worse compared to prior - 10/18 CXR: no major change, stable moderately sized bilateral pleural effusions - 10/19 CXR: No significant change Cards: Atrial Fibrillation Essential HTN Temp: [96.4 F (35.8 C)-99.3 F (37.4 C)] 98.8 F (37.1 C) Pulse (Heart Rate): [64-88] 70 Resp Rate: [14-23] 15 O2 Sat (%): [88 %-99 %] 97 % - Goal SBP <160, MAP >65 - Home antihypertensives: - Current regimen: - PRN labetalol and hydralazine - Amlodipine 5 mg daily - Coreg 12.5 mg Q12H - 10/17 TTE: technically difficult study; LVEF 60 - 65%, mild concentric LVH. No hemodynamically significant valve disease. - 10/16 troponin: 6 - 10/17 trop repeat for air hunger: 10/17 BNP: 962 - 10/16 ECG: AFib, interfascicular block - Statin Therapy: Indicated if LDL >70; began Recent Labs 10/16/248 CHOLESTEROL 165 TRIG 113 HDL 37* - Afib: Hold AC for now given ICH Renal/: No Current Issues Fluid Balance: - Goal: -1 L to -2 L - Tolerating diuresis with Lasix 60 mg + Diamox - Beard cath placed 10/17 for close I/O monitoring Intake/Output Summary (Last 24 hours) at 10/19/2024 1032 Last data filed at 10/19/2024 1000 Gross per 24 hour Intake 1075.04 ml Output 4790 ml Net -3714.96 ml - Daily Chem 10; electrolytes replaced per N[facility]U protocol Recent Labs 10/18/24 0022 10/18/24 0411 10/18/24 1345 10/19/24 0014 SODIUM 140 < > 142 143 POTASSIUM 3.9 -- 3.8 3.5 CHLORIDE 103 -- 102 100 CO2 29 -- 34* 37* BUN 12 -- 13 12 CREATSERUM 0.52* -- 0.58* 0.55* 0.60* PHOSPHORUS 3.4 -- -- 3.3 MAGNESIUM 2.0 -- -- 2.0 ICA 4.73 -- -- 4.85 < > = values in this interval not displayed. GI/Nutrition: No Current Issues Recent Labs 10/16/242044 ALBUMIN 3.5 BILIDIRECT 0.2 BILITOTAL 0.6 ALKPHOS 92 ALT 13 AST 14 TP 7.2 - DIET CARB CONTROLLED - [place] Swallow Screening Result: passed=cleared for oral intake - Monitor airway closely while still requiring intermittent BIPAP, okay for small snacks with supervision when BIPAP is off Bowel regimen: - Last Bowel Movement: (ORACLE OBIEE DEVELOPER) - Senna, miralax Stress ulcer prophylaxis: - not indicated Endo: DM Type 2 - Goal blood glucose 140-180 - 10/17 Endo consulted - Current regimen - Insulin glargine 28 U Q24H - Insulin SSI Q6H Recent Labs 10/16/24 2045 10/16/24 2258 10/18/24 1345 10/18/24 1745 10/18/24 2327 10/19/24 0014 GLUCOSE 224* < > 187* 236* 143 138 HGBA1C 10.5* -- -- -- -- -- < > = values in this interval not displayed. ID: Wound Dehiscence - Chronic Right foot s/p debridement with podiatry Podiatry and ID consulted for osteomyelitis in RLE Recent Labs 10/16/24 2258 10/17/24 0044 10/18/24 0022 10/19/24 0014 WBC 12.56* -- 9.62 8.75 LACT -- 1.3 -- -- PROCALCITONI 0.05 -- -- -- - Hemphill Cx, procalcitonin, lactate - Temp (24hrs), Av.1 F (36.7 C), Min:96.4 F (35.8 C), Max:99.3 F (37.4 C) - PRN Tylenol for T>100.4F - Most recent and positive cultures: Date Collected Source Result Date Finalized 10/18 Staph nasal swab P 10/17 Blood culture NG 06/24 10/18 (Follow up on date collected from outside hospital) Wound culture (outside hospital) Brandin albicans of foot wound 10/18 - Antiinfectives: Start Date Antiinfective Coverage Course Length Stop Date 10/16 Meropenem 11/22 10/16 Vancomycin 11/22 10/18 micafungin Brandin (on OSH wound culture) TBD TBD - Foot osteomyelitis - 10/17 ID (Team 5) consulted for abx: agree with repeating blood cultures, follow P cultures from OSH, agree with vanc + meropenem - 10/18 Added micafungin for brandin on wound culture from OSH, updated ID recs P Heme/Onc: Anemia of Chronic Disease Recent Labs 10/16/24 2045 10/16/24 2258 10/18/24 0022 10/18/24 1345 10/19/24 0014 WBC 13.39* < > 9.62 -- 8.75 RBC 4.75 < > 4.20* -- 4.26* HGB 12.6* < > 11.2* -- 11.3* HCT 37.5* < > 34.5* -- 35.8* PLATELET 307 < > 259 256 250 PT 14.5* -- -- -- -- PTT 33.6 -- -- -- -- INR 1.1 -- -- -- -- < > = values in this interval not displayed. - Goal plt >100, INR <1.4, Hgb >7 DVT prophylaxis: - SCD - Lovenox DVT ppx - No Eliquis anticoagulation for at least 14 days from ICH Musc: RLE chronic wound - PT/OT consulted and following - Current Activity Order: Bed rest - 10/17 ID and Podiatry consulted - 10/18 OSH Cushion Worker who did fixation Dr. Ramon Garcia DPM, reach out 10/19 for surgical recommendations to pass onto [facility] Podiatry team - Imaging: - R foot xray 3 views: ordered, P Fall Risk: - Assessed for patient fall risk and discussed safety measures during rounding. Social/Dispo: - Code status: Full Code - /: Medications reconciled - Discharge planning per PCRM/SW. Complexity. Obesity, Class III Body mass index is 53.07 kg/m . - Follow with PCP for dietary and lifestyle modifications. Wound Documentation Any conditions listed below are present on admission unless otherwise specified. .Hypertension, Uncomplicated - Ischemic CVA, Location: Left MEASUREMENT PSYCHOLOGIST - hemorrhagic transformation ICU Checklist: [x] Assess pain Presence of Pain: denies pain/discomfort Presence of Pain Score (Auto-calculated): 0 [x] Both SAT & SBT [x] Choice of analgesia/ sedation See neuro [x] Delirium Overall CAM-ICU: Negative [x] Early mobility PT/OT consulted?: Yes CURRENT AM-PAC Mobility Raw Score: 8 CURRENT AM-PAC Mobility Functional Limitation: 86.62% Impaired in Basic Mobility [x] Family Engagement Primary Emergency Contact: Norma Rosas (HCPOA) Last updated: 10/19 family updated over the phone by MADHURI [x] Get lines out Milagros: inserted 10/16, (indication: hemodynamic monitoring, ABG draws) Beard: inserted 10/17, (indication: diuresis, fluid goals) Rectal tube: inserted , (indication:) Enteral access: inserted /, [ ] gastric; [ ] post-pyloric Central lines: Central Line LDAs Active Central Line Access Devices Name Placement date Placement time Site PICC Line - Single Lumen 10/16/24224910/16/242249 -- 2 Central Line Indications: No alternative access available Left PICC line from OSH If patient has multiple lines, please choose the answers of the next two questions to correlate with the lines listed above in descending order Can line/s be removed today? Select all that apply Line 1, no cannot be removed (PICC) Dressing/s Clean/Dry/Intact?: Select all that apply Line 1, Dressing not clean, dry, intact; nursing notified (PICC) Discussed with NCCU Attending, Dr. Thomas Jordan PA-C 10/19/24 10:32 AM Check the treatment team to find the assigned neurocritical care provider (resident, fellow, DISTRIBUTION FIELD ENGINEER, orPA) or page/call the corresponding number below NCC1 (Beds [phone]): [place] # [phone], pager #[phone] NCC2 (Beds [phone], 12 Jing, and overflow): [place] #: [phone], pager #[phone] * Rogelio Gan RCP - 10/19/2024 10:20 AM EDT Scoring Tool and Orders for Airway Clearance Therapy Points Therapy Frequency 0 - 7 PEP DC or DYLAN 8 - 16 VIBRATORY PEP TID 17 - 24 METANEB, VEST, IPV, PDP Q6 25 - 32 METANEB, VEST, IPV, PDP Q4 >32 NOTIFY TEAM NOTIFY TEAM Plan of Care: Based on the patient's score of 11, PEP therapy will be ordered with a frequency of TID. Patient will be reassessed every 24 hours to determine score and if any changes to therapy and/or frequency are required. Rogelio Gan RCP 10/19/2024 10:20 AM * Tony Deleon MD - 10/19/2024 5:57 AM EDT NEUROSURGERY PROGRESS NOTE: 10/19/24 S: hemorrhagic stroke vs underlying lesion O: PE: AxOx1 (person, not time or place) BiPAP in place PERRLA; tracking appropriately Face symmetric Fcx4 Full strength and AG throughout except L DF/PF in RLE Ex Fix in place + HAIDER wrap in RLE Temp: [96.4 F (35.8 C)-99.3 F (37.4 C)] 99.3 F (37.4 C) Pulse (Heart Rate): [64-91] 72 Resp Rate: [13-22] 17 O2 Sat (%): [88 %-99 %] 98 % Respiratory Rate - set (bpm): 10 O2 Sat (%): 98 % (10/19 0500) O2 Device: BIPAP (10/190) Flow (L/min): 3 (10/19 1999) Oxygen Concentration (%): 40 (10/19 0148) I/O last 3 completed shifts: In: 1932.2 [P.O.:600; I.V.:569.3; IV Piggyback:762.9] Out: 5760 [Urine:5760] ICP: No data recorded WBC/Hgb/Hct/Plts: 8.75/11.3/35.8/250 (10/19 13) Na/K+/Phos/Mg/Ca: 143/3.5/3.3/2.0/-- (10/19 13) Bun/Creat/Cl/CO2/Glucose: 12/0.60/100/37/138 (10/19 13) Imaging: moderate multifocal left temporo-occipital parenchymal hemorrhage. Associated white matter hypoattenuation, with multifocal loss of duffy-white differentiation, predominantly localizing to the left MEASUREMENT PSYCHOLOGIST territory. This is associated with overlying sulcal effacement and mild generalized mass effect contributing to partial effacement of left lateral ventricle. There is trace intraventricular hemorrhage within the bilateral occipital horns. There is no significant midline shift. No herniation or hydrocephalus. A/P: Lani Zaragoza is a 69 y.o. male w/ a history of diabetes, afib on eliquis, HTN, HLD, PVD, and TDOD who was admitted to OSH for debridement of right diabetic foot ulcer on 10/09. Noted to have mental status change 10/[address] head revealed left temporal hemorrhage. Neurosurgery will sign off at this time. Please call with any questions or concerns. Neuro: neuro checks Q1H + vitals - MRI brain w/wo when able - hemorrhagic stroke care per neurovascular - goal SBP<140, INR<1.4, Platelets >100k - hold all antiplatelet agents and anticoagulation - admission to N[facility]U Cards: SBP<140 Resp: 4 L NC ID: afebrile, leukocytosis of 12.56 FEN/GI: DIET SOFT AND BITE SIZED (IDDSI 6) Liquid Thin (IDDSI 0) PPX: SCDs, Pharm DVT ppx (hold) Dispo: Pending clinical advancement; N[facility]U primary Please page [phone] ([phone]) with questions. Principal Problem: Ischemic cerebrovascular accident (CVA) Active Problems: ICH (intracerebral hemorrhage) Type 2 diabetes mellitus with hyperglycemia Present on Admission: Ischemic cerebrovascular accident (CVA) ICH (intracerebral hemorrhage) Type 2 diabetes mellitus with hyperglycemia Complexity. Obesity, Class III Body mass index is 53.07 kg/m . - Follow with PCP for dietary and lifestyle modifications. Wound Documentation Any conditions listed below are present on admission unless otherwise specified. . * Yahir Munguia [facility] - 10/18/2024 6:11 PM EDT Department of Pharmacy Pharmacokinetics Progress Note Patient: Lani Zaragoza Room/Bed: 1040/A Assessment and Plan: Based upon renal function, intake/output, and drug level assessment and interpretation (steady state), I have changed the vancomycin dose and/or dosing interval to 1000 mg IV every 12 hours to start at 0000 on 10/19. 1250 mg bag hung 2 minutes after trough resulted. Ran for ~15 min. A pharmacist willcontinue to follow and order drug levels and adjust dosing as clinically appropriate. I have modified the orders in IS to reflect the above plan. Vancomycin regimen at time of level: Vancomycin 1250 mg IV every 12 hours Last Dose Administered: Dose: Date: Time: 1250mg 10/18 0649 Levels: 24.2 mcg/mL drawn at 1705 on 10/18. Level was a trough. Most Recent Labs: WBC Count Date Value Ref Range Status 10/18/2024 9.62 3.73 - 10.10 K/uL Final BUN Date Value Ref Range Status 10/18/2024 13 7 - 25 mg/dL Final Creatinine Date Value Ref Range Status 10/18/2024 0.58 (L) 0.70 - 1.30 mg/dL Final I/O last 3 completed shifts: In: 2900.2 [P.O.:300; I.V.:1669.1; IV Piggyback:931.1] Out: 4085 [Urine:4085] Estimated Creatinine Clearance: 180 mL/min (A) (by C-G formula based on SCr of 0.58 mg/dL (L)). Ongoing Vancomycin Monitoring: The following trough goal is recommended for ongoing therapy based on the suspected/confirmed source of infection and today s calculations: Goal trough range: 15-20 mcg/mL If therapy is to be continued after discharge, please contact pharmacy for appropriate dosing. Please feel free to contact me with any further questions. Name: Yahir Munguia RPH Phone: [phone] Date/Time: 10/18/2024 6:14 PM * ROSALINDA Kwong - 10/18/2024 2:35 PM EDT Care Management Progress Note Per medical team, anticipated that patient will require watermaster care at discharge. SNF and familynotified. Family (son Rogelio) is agreeable to Medicaid process. Financial updated. Incapacity form has been completed by MD. Financial to assist family with Medicaid application. SW notified by bedside RN that patient's sister at bedside is requesting assistance with patient's bills. Patient's rent is currently due. However, patient currently lacks capacity and is unable to access finances. Patient sister reports a plan to follow up with patient's landlord to explain patient's current condition. SW will follow for any emerging needs. MISTY Mercer, ROSALINDA Advanced Quality Engineer Available by Secure Chat * Dillan Guzman MD - 10/18/2024 10:47 AM EDT I have independently seen and examined the patient on 10/18/24. I agree with the history, examination, assessment and plan as documented by the DISTRIBUTION FIELD ENGINEER with my changes/additions added. Patient is a 69 yo M with a hx of poorly controlled DM2 with neuropathy, HTN, TODD, [facility], R heel diabetic ulcer with osteomyelitis S/p excisional debridement down to bone on 10/11 with podiatry, MRSE bacteremia on Vancomycin and meropenem with repeatedexcisional debridement of wound and external fixator placement for nonweightbearing status with podiatry on 10/15 who was discharged to SNF and presented with aphasia and altered mental status. Found to have an acute L temporo-occipital ICH, IVH and mass effect. Transferred to NCCU Interval History: On BiPAP. S/p IV Lasix for pulmonary edema Scheduled Meds: amLODIPine 5 mg Oral Daily Atorvastatin 40 mg Per NG tube QHS carveDILOL 6.25 mg Oral Q12H Gabapentin 400 mg Oral TID hydrALAZINE 25 mg Oral Q8H insulin glargine 32 Units Subcutaneous Q24H Insulin regular Subcutaneous Q6H meropenem 1 g Intravenous Q8HNS vancomycin 1,250 mg Intravenous Q12HNS Labs: Chem 7: Lab Results Component Value Date SODIUM 142 10/18/2024 POTASSIUM 3.9 10/18/2024 CHLORIDE 103 10/18/2024 CO2 29 10/18/2024 GLUCOSE 212 (H) 10/18/2024 BUN 12 10/18/2024 CREATSERUM 0.52 (L) 10/18/2024 BUNCREARATIO 23 10/18/2024 OSMOLALITY 302 10/18/2024 GFR >90 10/18/2024 CBC: Lab Results Component Value Date WBC 9.62 10/18/2024 HGB 11.2 (L) 10/18/2024 HCT 34.5 (L) 10/18/2024 PLATELET 259 10/18/2024 MCV 82.1 10/18/2024 Physical Exam: Vital Signs: Blood pressure 170/78, pulse 81, temperature 97.6 F (36.4 C), temperature source Axillary, resp. rate 21, height 1.753 m (5' 9"), weight (!) 163 kg (359 lb 5.6 oz), SpO2 96%. General: no acute distress HEENT: normocephalic, atraumatic Cardiovascular: +S1S2, irregular rhythm, +1 edema, + distal pulses, capillary refill < 3 seconds Pulmonary: Reduced to auscultate at bases Abdominal: soft, nontender, nondistended, active bowel sounds Extremities: R foot debridement, dressing is on, external fixator Skin: no rash Neurology: awake, follows simple commands in all ext, weaker on the R Assessment and Plan: Neurology: Acute L temporo-occipital ICH, IVH concerning for hemorrhagic transformation of ischemic stroke - etiology of stroke is likely cardio-embolic in the setting of pAfib Cerebral edema, mass effect and MLS of the brain - Neurochecks with pupillometer - Most recent CTH with stable - Obtain MRI brain W/Wo contrast when able - SBP <160, MAP >65, Na goal 140-150. PRN 3% HTS to achieve goal. Plt >100K and INR <1.4 - Hold all anticoagulation and antiplatelets - Atorvastatin - PT/OT/GEARMAN evaluation - Continue gabapentin for peripheral neuropathy Pulmonary: Acute hypoxic respiratory failure TODD Pulmonary edema - acute Bilateral pleural effusion Oxygen Therapy O2 Sat (%): 96 % O2 Device: nasal cannula Flow (L/min): 3 Oxygen Concentration (%): 40 - PRN ABG - Close airway watch, at risk for airway loss and intubation - Wean BiPAP as tolerated - IV Lasix with I&Os goal -1L per day Cardiovascular: Essential HTN HLD pAfib - Hold Eliquis in the setting of ICH - SBP goal< 160, MAP goal >65. PRN Hydralazine and Labetalol. Wean Nicardipine gtt at tolerated - Up on Coreg, amlodipine - TTE with EF of 60-65%, bi-atrial enlargement. No hemodynamic significant valvular disease Nephrology: - Lasix as above GI/Nutrition: - NPO, start diet when off BiPAP - Bowel regimen to prevent constipation Endocrinology: Poorly controlled DM with hyperglycemia - A1c of 10.5 - Endocrinology on board and managing, scheduled insulin - Goal blood glucose 140-180 ID: R heel diabetic ulcer with osteomyelitis S/p excisional debridement down to bone on 10/11 with podiatry, with repeated excisional debridement of wound and external fixator placement for nonweightbearing status with podiatry on 10/15 MRSE bacteremia Wound culture at OSH was positive for Proteus, Enterococcus, Morganella, strep and anaerobes. Continue follow up - Continue IV Vancomycin and meropenem. Initial plan for 6 weeks - ID on board - Blood cultures here are NTD - PRN Tylenol for T>100.4F - Podiatry on board Heme/Onc: - Goal plt >100, INR <1.4, Hgb >7 - VTE prophylaxis: - SCDs - Chemical prophylaxis - Start LVX Acute deconditioning - PT/OT consulted and following - Mobility as tolerated Additional details and other supportive care as per the DISTRIBUTION FIELD ENGINEER note from the same day This patient is critically ill, unstable and is at high risk of imminent or life threatening deterioration due to acute hypoxic respiratory failure, acute pulmonary edema, pleural effusions, acute L ICH, cerebral edema, IVH, bacteremia, R heel diabetic foot ulcer with osteomyelitis, poorly controlled diabetes, HTN, afib requiring BiPAP, close airway watch, hypertonic saline, close neurologic and hemodynamic monitoring. I personally spent 33 minutes in the intensive care unit providing critical care services to the patient today independent of procedures, teaching and other care providers. Management of the above was performed. My time managing this critically ill patient included review of interval history, laboratories, radiology and consultation reports; performing a physical examination; discussing the patient with the multi-disciplinary team and managing life sustaining therapies to prevent imminent clinical deterioration. Dillan Guzman MD Neurocritical Care Attending * EVETTE Spann - 10/18/2024 9:46 AM EDT Acute Care GEARMAN Speech/Language/Cognitive Evaluation Best mode of Communication: spoken language (regular speech) Communication Strategies: -Provide repetitions as needed Discharge Recommendations: Based on the below outcome measures/assessment score(s) and GEARMAN clinicaljudgment, discharge destination recommendation is: Nursing Home Facility Barriers to discharge home: 1:1 assist needed for IADL's including medication management and finances Supporting factors for discharge setting: (Impaired language/reading skills for iADLs) Acute GEARMAN Outcomes Tracking Communicate basic wants and needs?: yes Demo insight/appreciation of deficits?: no Appreciate deficits - Details: improved with cues Complete basic problem solving?: yes Basic problem solving - Details: call light Current therapy frequency recommendation in acute: Speech/Lang/Cog Therapy Frequency: 3 times a week Clinical Impression: Lani Zaragoza presents with fluent aphasia, most consistent with anomia, as well as concern for vision deficits vs true linguistic deficits impacting pt ability to read letters/words s/p L MEASUREMENT PSYCHOLOGIST CVA, Ltemporal ICH. Pt reporting frustrations with anomia, and though able to eventually communicate wants/needs within evaluation, suspect delayed responses relating to reported word finding difficulties.Mild receptive deficits with higher level yes/no and command following. Limited assessment of reading/writing. Ongoing skilled GEARMAN services indicated to address above deficits, maximize functional recovery and provide strategies for safe return to management of iADLs. Patient Education/Instruction Learners: Patient, Adult Child/Children Education provided: Communication strategies, Plan of care, Role of this discipline Teaching method: Verbal Education/Instruction Learner response: Needs review, Partially complete Learning preferences: Auditory Learning considerations: Psychosocial Stroke education: Recovery process, Role of rehabilitation discipline Plan for next session: 10/18: good, ongoing reading/writing, anomia strategies in conversation Subjective information: Seen at bedside with son present. Alert and agreeable throughout. Requesting return to BiPap at end of session, RN in room Pain: General Pain Documentation (Adult, OB, Peds) Presence of Pain: reports pain/discomfort Presence of Pain Score (Auto-calculated): 0 DVPRS (Defense and Veterans Pain Rating Scale) DVPRS: Rest: 8- severe pain DVPRS: Activity: 8- severe pain Precautions: Patient Safety Communication Prior to Visit: Nursing Lines/Tubes/Drains (Rehab Status): Telemetry, Arterial line, Urinary catheter GEARMAN Existing Precautions/Restrictions: NPO Patient History Comments: Lani Zaragoza is a 69 y.o. male who presents per chart: "past history of afib on Eliquis who presents as hemorrhagic stroke alert. A stroke alert was called for STAT consultation. LKW 1200. [facility] foot wound since 10/09 and is s/p debridement with podiatry. He was meant to dc today to SNF but around 1200 he became acutely confused and aphasic. Stroke alert was called and CTH demonstrated L temporal hemorrhage, possible hemorrhagic mass with 4mmMLS. He is on Eliquis for his hx of afib, but this has been held since 10/09 given foot procedures. He was placed on cardene gtt prior to transfer, but was paused about 20 minutes prior to arrival. [facility]was [facility] for further management. INTERVAL HISTORY SINCE ADMISSION 10/16/2024: Admitted to [facility] 10/17: held MRI B given airway watch; BiPAP for air hunger; Endo consult for hyperglycemia; sodium goal >140 with 3% boluses; lasix for fluid goal Neuro: (10/16/2024) Acute Left MEASUREMENT PSYCHOLOGIST CVA Left temporal ICH likely hemorrhagic transformation of ischemic stroke" Prior Level of Function: Per PT/OT Home Setting Residence: House (One-level home.) Lives With: alone Patient receives help from : none Patient reported support for discharge planning: none First floor setup: bedroom, tub shower, grab bars Number of stairs to enter home: 0 Number of stairs in home: 0 Mobility Equipment Available: manual wheelchair, front-wheeled walker, straight cane ADL Equipment Available: shower chair, grab bars Home Environment Details: Unable to ensure accuracy of Occupational Profile information collected via pt this date due to current deficits in cognition/mentation/language. 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 Vocation: retired Residence: House (One-level home.) Lives With: alone Per GEARMAN IADL History IADLs: independent Primary Language: [place] Home Management Skills: independent Medication Management: independent (with occasional use of pill box, admits to forgetting to take Eliquis) Homemaking Responsibilities: Yes Meal Prep Responsibility: (States he does not cook but eats out) Bill Paying/Finance Responsibility: Primary (states writing x1 check for rent, rest of billing online) IADL Comments: Pt reports managing own medications, etc. and relying on "eating out" for meals/food. Pt denies receiving assistance for any IADL engagement. GEARMAN Existing Precautions/Restrictions: NPO Respiratory Status: O2 Sat (%): 96 % (10/18 1000) O2 Device: nasal cannula (10/18 945) Flow (L/min): 3 (10/18 945) Oxygen Concentration (%): 40 (10/18 0400) EXPRESSIVE LANGUAGE: Functional (pt reporting frustrations with anomia- noted mild delay in responses and at conversation level) Task: Automatic Speech Intact Phrase Completion Intact Confrontation Naming Intact Answering 'wh' Questions Functional Repetition Intact Verbalize Basic Wants and Needs Functional Functional Participation in Conversation Functional RECEPTIVE LANGUAGE: Functional Task: Identify Functional Objects Intact Follow 1-Step Commands Intact Follow 2+ Step Commands Functional (required x1 repetition for 2 step direction) Answers Basic Y/N Questions Intact Answers Complex Y/N Questions Functional (required x1 repetition for complex) READING: Impaired Task: Letter Identification Impaired (accurate for x2/5 letters. Concern for overall vision impacting vs possible true linguistic deficits) Single Words Aloud Impaired Single Word Comprehension Impaired WRITING: (Limited assessment given UE weakness, not legible for name) SOCIAL INTERACTION/PRAGMATICS: (Flat) COGNITION: (At risk) Task: Arousal/Alertness Delayed responses to stimuli (however suspect this is related to above noted anomia vs delayed processing) Orientation Level Oriented to person, Oriented to place (cues for situation) Safety Judgment (Functional verbal problem solving for call light and fall risk, questionable weight bearing awareness, cues required for insight into impact of deficits for homegoing with reading tasks) Awareness of Errors (Partial awareness) Deficits (Partial awareness) Attention Span Appears intact Memory (unclear anomia vs recall) Problem Solving (functional for call light) CRANIAL NERVE EXAMINATION: Cranial Nerve Exam CN V (Trigeminal) normal blink CN VII (Facial) strong bilateral movement of upper and lower face CN IX (glossopharyngeal) voice quality strong and clear CN X (Vagus) not tested CN XI (Accessory) raises head off pillow without difficulty CN XII (Hypoglossal) clearly articulated speech MOTOR SPEECH TASKS: Functional (pt reporting increased slurred from baseline however intelligible in 100% of conversation) VOCAL PARAMETERS: (Mild ashtenic) Subjective Voice Evaluation Grade of dysphonia (G): 1 Roughness (R): 0 Breathiness (B): 0 Asthenia (A): 1 Strain (S): 0 GEARMAN Outcomes: The [place] Aphasia Screening Test (MAST) was developed as a brief, repeatable screening measure for individuals with impaired communication/language skills. The MAST was designed to be used for serial assessments to detect changes in language abilities over time. Patient scored the following on the 8/9 subtests: Expressive Index Naming Expressive Index: 8/10 Automatic Speech Expressive Index: 10/10 Repetition Expressive Index: 10/10 Writing Expressive Index: 0 (NA- UE weakness)/10 Verbal Fluency Expressive Index: 10/10 (Based on Cookie Theft Picture) Receptive Index Yes/No Accuracy Receptive Index: 18/20 Object Recognition Receptive Index: 10/10 Following Instructions Receptive Index: 8/10 Reading Instructions Receptive Language Index: 0/10 Expressive Index Subscale: 38/40 Receptive Index Subscale: 36/50 Total Index Score: 74/90 Acute GEARMAN Goals Plan of Care by EVETTE Spann at 10/18/2024 9:47 AM Version 1 of 1 Problem: GEARMAN - Cognition Goal: Metacognition - Patient will identify at least x2-3 deficits related to medical condition andhow deficits will impact ability to return home with fading cues to improve safety and independence Outcome: Ongoing Problem: GEARMAN - Language Goal: Word Retrieval Strategies for Conversation - Patient will state and/or demonstrate understanding of trained strategies targeting anomia with no more than min cues to use strategies during functional conversation to reduce communication breakdowns Outcome: Ongoing Goal: Reading Comprehension Command Following - Patient will independently follow written 1-step commands with 70% accuracy to increase written receptive language and reading comprehension skills. Outcome: Ongoing Speech Language Pathologist: EVETTE Spann Time In: 945 Time Out: 1012 Total Visit Time: 26 minutes Total Treatment Time (skilled, billable minutes): 26 minutes Non-billable assistance during session: NA Assisted by during session: NA PPE used during patient interaction: gloves Patient location/status at end of session: bed with head of bed elevated Patient alarms at end of session: none altered Needs in reach. 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 Fall Risk: Assessed for patient fall risk and discussed safety measures during rounding. We will review glucoses; however, primary team should continue to check blood glucoses daily and reach out to our service with urgent issues DIABETES DISCHARGE PLAN Please contact our team on day of discharge for definitive recs. QGENDA :TEAM 2 Tentative discharge plan: (Please use the Diabetes Discharge Order Set: Diabetes Orders - for those patients discharged on INSULIN) - If orals or non-insulin injectables recommended, will need to order them outside of the Diabetes Orderset. Discharge Diet: DIET CARB CONTROLLED- 60 Grams per Meal Patient Education: Your target blood sugar is 80-130 mg/dl fasting and under 180 mg/dl nonfasting. Patient needs new insulin scripts at discharge: ASK PATIENT. Basal/Mealtime - Basal: U300 Glargine PENS with needles, dose tbd. (Or insurance covered equivalent.) Titration: TBD - Mealtime time insulin: FixedvsFlexible: Fixed: U100 Lispro Pens with [place] MAX DAILY DOSE 60 tbd Units for Large Meal or tbd Units for Small Meal PLUS Correction Scale Subcutaneous every meal and at bedtime Correction Scale: (Copy and paste into "Note to Pharmacy") Custom: 151-200 = 2 units 201-250 = 4 units 251-300 = 6 units 301-350 = 8 units 351-400 = 10 units Diabetes Supplies: Glucose monitoring supplies for ACHS: Glucose test strips: dispense 150 with 1 refill - Patient prefers any brand or substitute brand covered by insurance, Lancets: dispense 150 with 1 refill, and alcohol swabs: dispense 200 with 1 refill The patient will need script for new glucometer: no: Patient prefers any brand or substitute brand covered by insurance Continuous Glucose Monitoring Devices: Continue home CGM (does not need new script) Other Diabetes Supplies: Glucagon(Gvoke HypoPen 2-Pack) 1 MG/0.2ML Solution Auto-injector Follow up needed: PCP within 1- 2 weeks CC: Hyperglycemia History of Present Illness: Lani Zaragoza is a 69 y.o. year old male who is seen at the bedside. Cr 0.52. He remains NPO for airway watch and awaiting speech eval. He received 16 units correction for glucoses ranging from 219-252 mg/dl. This morning his glucose is 212 mg/dl. Current Diet Orders Procedures DIET NPO with meds Patient to remain NPO until passes Bedside Swallow Screen. Standing Status: Standing Number of Occurrences: 1 NPO Meds:: with meds Current Regimen: Basal: Isajssuo32 units Q1500 Prandial: none NPO Enteral feeding: none Correction: Insulin Regular 2 units for every 50 mg/dl greater than 150mg/dl every 6 hours Daily Glucose Review: Date Daily glucose review TDD Basal Prandial/ Correction 10/17/2024 223/219, 236, 244, 252/252 32 16 16 10/18/2024 245/220, 212, 186 Review of Systems Diabetes: Negative for symptoms of hypoglycemia Physical Exam Constitutional: obese male in no acute distress. Pulmonary/Chest: Respirations even and unlabored on BiPAP Musculoskeletal: No acute abnormalities noted; LLE external fixator present Neurological: Alert briefly Psych: Cooperative Temp: [97.2 F (36.2 C)-99 F (37.2 C)] 97.6 F (36.4 C) Pulse (Heart Rate): [65-102] 84 Resp Rate: [12-32] 18 O2 Sat (%): [95 %-99 %] 97 %Admission (Dosing) Weight: (!) 172 kg (379 lb 3.1 oz) Most recent entered Weight: (!) 163 kg (359 lb 5.6 oz) Body mass index is 53.07 kg/m . Background History Lani Zaragoza is a 69 year old male with PMH of A-fib and type 2 diabetes mellitus who was a transferred [facility] where he [facility] presented for management of chronic foot wound. Upon planned discharge 10/16 a stroke code was called and CTH revealed hemorrhagic stroke. He was sent to [facility] for further management. He is admitted to [facility]. Diabetes History: Type of Diabetes: Type 2 Diabetes Mellitus (T2DM) Date of diagnosis: 2023 Outpatient physician: PCP Diabetes Complications: peripheral neuropathy Date of most recent dilated eye exam: unknown DKA occurrences: none Home blood glucoses: He is checking his blood sugars with Dexcom Home diabetes medications: Basal: toujeo unknown dose (no recent fill history) Prandial: none Correction: none Non-insulin Injectables: none Orals: metformin BP Medication(s): carvedilol, amlodipine, and hydralazine Lipid Medication(s): none Recent A1c: Lab Results Component Value Date HGBA1C 10.5 (H) 10/16/2024 Lab Results Component Value Date CHOLESTEROL 165 10/16/2024 TRIG 113 10/16/2024 HDL 37 (L) 10/16/2024 LDLCALC 105 (H) 10/16/2024 Lab Results Component Value Date SODIUM 142 10/18/2024 POTASSIUM 3.9 10/18/2024 CHLORIDE 103 10/18/2024 CO2 29 10/18/2024 BUN 12 10/18/2024 CREATSERUM 0.52 (L) 10/18/2024 GLUCOSE 212 (H) 10/18/2024 No results found for: "CREATURINE", "MICROALBUMIN", "MICALBCREAT" Lab Results Component Value Date ALT 13 10/16/2024 No results found for: "PREALBUMIN" Cardiac echo: EF = Results for orders placed during the hospital encounter of 10/16/24 ECHOCARDIOGRAM 10/17/2024 (Final) Interpretation Summary Technically difficult study. The left ventricular chamber size and systolic function are normal. LVEF 60-65%. Mild concentric LVH. The right ventricular chamber size and systolic function are normal. Bi-atrial enlargement. There is no hemodynamically significant valvular disease. Estimated RVSP 49 mmHg. No right to left shunt with agitated saline. * AHSAN Chavez - 10/18/2024 8:55 AM EDT Neurovascular Stroke Service Intracerebral Hemorrhage Note IDENTIFYING INFORMATION Lani Zaragoza MR# [id number] 10/18/2024 HISTORY OF PRESENT ILLNESS Lani Zaragoza is a 69 y.o. male with PMH significant for A fib on Eliquis who was admitted to an outside hospital on 10/09/24 for chronic foot wound and is s/p debridement with podiatry. On the day hewas to be discharged to SNF on 10/16/24 he became acutely confused and aphasic. Stroke alert was called and CTH demonstrated L temporal hemorrage. His Eliquis was being held for surgery since 10/09. [facility]was transferred to [facility]. NIHSS 12 on arrival. LKW 1200 on 10/16. INTERVAL HISTORY 10/17: Brain MRI pending. Brother updated at bedside. 10/18: Repeat CT stable. Remains in NCCU. PHYSICAL EXAM Gen: awake, alert, NAD HEENT: normocephalic, no scalp lesions or tenderness, PERRLA, EOMI Neck: trachea midline CV: +S1S2, no m/r/g Lungs: LCTA but diminished bilaterally with equal chest rise Abd: soft, nontender, nondistended, +BS x4 quadrants Extrem: Warm and well perfused, no cyanosis, right leg/foot dressing Neuro: Oriented x3, ODELL x4, sensation intact and equal bilaterally CN II - Right hemianopia CN II/III - PERRLA CN III/IV/ - EOMI CN V - Light touch to face intact in all 3 divisions CN VII - Facial movement intact and symmetrical bilaterally CN VIII - Hearing intact CN X - Cough present CN XI - muscular movement of shoulders and sternocleidomastoid muscles intact and equal bilaterally CN XII - midline protrusion of tongue MOTOR EXAMINATION: Right hemiparesis NIHSS Provider NIH Stroke Scale NIH Interval (Provider): daily NIH Level of Conciousness (Provider): 0 NIH LOC Questions (Provider): 2 NIH LOC Commands (Provider): 0 NIH Best Gaze (Provider): 0 NIH Visual (Provider): 2 NIH Facial Palsy (Provider): 0 NIH Left Arm Motor (Provider): 0 NIH Right Arm Motor (Provider): 0 NIH Left Leg Motor (Provider): 0 NIH Right Leg Motor (Provider): 3 NIH Limb Ataxia (Provider): 0 NIH Sensory (Provider): 0 NIH Best Language (Provider): 1 NIH Dysarthria (Provider): 0 NIH Extinction and Inattention (Provider): 1 NIH Total Score (Provider): 9 Intracerebral Hemorrhage Volume Intracerebral Hemorrhage Score Score 30 Day Mortality following ICH 0 0% Mortality 1 13% Mortality 2 26% Mortality 3 72% Mortality 4 97% Mortality 5 100% Mortality ASSESSMENT AND PLAN Neuro: 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 No significant carotid or vertebral artery stenosis MRI brain w and w/o: Pending TTE: Pending LDL 105, A1c 10.5 -Stroke Etiology (TOAST Criteria): MRI pending but has A fib -Antiplatelet plan: not started due to acute hemorrhage -Statin therapy: Atorvastatin 40 mg daily -Blood Pressure goal: SBP <160 -Continue to hold Eliquis for now Hemorrhagic Stroke Core Measures -NHISS on admission 16 -Patient has been started on Mechanical (SCD's) and Pharmacological (SQ heparin) DVT prophylaxis will be started after stable HCT. -Antiplatelet therapy is not indicated. -Anticoagulation therapy not indicated in hemorrhagic stroke -Patients LDL 105 and HgbA1c 10.5 were checked -Dysphagia screening ordered, and will be completed prior to patient receiving oral intake. -Stroke education booklet has been provided both written and verbal education to the patient and family regarding hemorrhagic strokes. We have reviewed the patient's personal modifiable risk factors including: A fib as well as education on reducing these risk factors. -Patient is being assessed for Rehab by PT/OT/Speech and PM&R if indicated. AHSAN Chavez 10/18/2024 12:18 PM VITAL SIGNS Temp: [97 F (36.1 C)-99 F (37.2 C)] 97 F (36.1 C) Pulse (Heart Rate): [70-102] 71 Resp Rate: [12-32] 17 O2 Sat (%): [95 %-99 %] 97 % IMAGING/DIAGNOSTIC STUDIES MEDICATIONS amLODIPine 5 mg Oral Daily Atorvastatin 40 mg Oral QHS carveDILOL 12.5 mg Oral Q12H enoxaparin 0.3 mg/kg (Dosing Weight) Subcutaneous Q12HNS furosemide 60 mg Intravenous Once Gabapentin 400 mg Oral TID insulin glargine 32 Units Subcutaneous Q24H Insulin regular Subcutaneous Q6H meropenem 1 g Intravenous Q8HNS Polyethylene glycol 17 g Oral Daily Senna 8.6 mg Oral Daily vancomycin 1,250 mg Intravenous Q12HNS * Shweta Garcia OT - 10/18/2024 8:02 AM EDT Occupational Therapy Attempt Note 10/18/2024 OT Therapy Completed: Attempted Attempted Reason: Patient is not medically optimized to tolerate therapy program Shweta Garcia OT I AM A FLOAT, PLEASE PAGE YOUR FLOORS OT REGARDING THIS PATIENT Time In: 0802 Time Out: 0802 Total Visit Time: 0 minutes Total Treatment Time (skilled, billable minutes): 0 minutes * Amelia Jordan PA-C - 10/18/2024 7:02 AM EDT NEUROCRITICAL CARE HISTORY AND PHYSICAL HOSPITAL VISIT DEMOGRAPHICS Patient: Lani Zaragoza Code status: Full Code Admission date: 10/16/2024 8:33 PM Hospital days: LOS: 2 days CHIEF COMPLAINT stroke HISTORY OF PRESENT ILLNESS Lani Zaragoza is a 69 y.o. male with a past history of afib on Eliquis who presents as hemorrhagic stroke alert. A stroke alert was called for STAT consultation. LKW 1200. Pt [facility] chronic foot wound since 10/09 and is s/p debridement with podiatry. He was meant to dc today to SNF but around 1200 he became acutely confused and aphasic. Stroke alert was called and CTH demonstrated L temporal hemorrage, possible hemorrhagic mass with 4mm MLS. He is on Eliquis for his hx of afib, but this has been held since 10/09 given foot procedures. He was placed on cardene gtt prior to transfer, but was paused about 20 minutes prior to arrival. He was transferred to [facility] for further management. INTERVAL HISTORY SINCE ADMISSION 10/16/2024: Admitted to [facility]U 10/17: held MRI B given airway watch; BiPAP for air hunger; Endo consult for hyperglycemia; sodium goal >140 with 3% boluses; lasix for fluid goal 10/18: Relaxed SBP <160; increased Coreg, off Cardene gtt; Lasix 60 twice for respiratory status; CTH in morning stable; Endo increased insulin regimen; ID recs updated PHYSICAL EXAM GENERAL: Alert, no acute distress HEENT: normocephalic, no scalp wounds nor lesions CARDIO: +S1S2, RRR, no m/r/g, no edema PULM: Rhonchorous to auscultation bilaterally, equal chest rise on BIPAP ABDOMINAL: soft, nontender, nondistended, active bowel sounds EXTREMITIES: no wounds or lesions VASCULAR: + distal pulses, capillary refill <3 seconds, has left arm PICC line with no erythema,purulent drainage, or signs of infection and dressing is C/D/I. NEURO: Awake, oriented to name, place, month and year. Mild dysarthria. No facial droop. PERRL, gaze midline, tracks provider. Follows commands x4. LUE 4/5 strength, LLE 3/5; RUE 3+/5, RLE not assessed given external fixation. Sensation intact throughout. ASSESSMENT AND PLAN Neuro: (10/16/2024) Acute Left MEASUREMENT PSYCHOLOGIST CVA Left temporal ICH likely hemorrhagic transformation of ischemic stroke - ICH Management: - Monitor neurostatus with neurochecks Q2H - Prevent further expansion with goal SBP <160 (see cards) - 10/16 NSGY consult: Ct head, MRI - Daily NIHSS: NIH Stroke Scale: NIH Level of Conciousness (Provider): 0 NIH LOC Questions (Provider): 0 NIH LOC Commands (Provider): 0 NIH Best Gaze (Provider): 0 NIH Visual (Provider): 0 NIH Facial Palsy (Provider): 0 NIH Left Arm Motor (Provider): 0 NIH Right Arm Motor (Provider): 1 NIH Left Leg Motor (Provider): 2 NIH Right Leg Motor (Provider): 3 NIH Limb Ataxia (Provider): 0 NIH Sensory (Provider): 0 NIH Best Language (Provider): 0 NIH Dysarthria (Provider): 1 NIH Extinction and Inattention (Provider): 0 NIH Total Score (Provider): 8 - Imaging: - 10/16 CTA H/N: Examination is equivocal for mid/distal left posterior cerebral artery occlusion. Artifact from venous contamination and vessel tortuosity limits characterization, and this may reflect a vessel bifurcation. As such, presence of infarct with hemorrhagic conversion is not definitive, and underlying mass would be difficult to exclude on the basis of CT alone. MRI with and without contrast is advised to aid characterization, to include MR angiography to more convincingly assess patency of the left posterior cerebral artery. - 10/16 20:4700: Initial CT H: Left Temperooccipital ICH likely hemorrhagic transformation of left MEASUREMENT PSYCHOLOGIST stroke, ICH, mild mass effect - 10/17: 6H-stability CT H: mild increased edema surrounding ICH with 3 mm R-pickard MLS. Exam otherwise not significantly changed - 10/18 CTH follow up: unchanged hematoma with surrounding edema in L temporal occipital lobes - / MRI B: P - Cytotoxic Cerebral Edema Management: - Goal Na >140 - Bolus as needed for goal (correct for hyperglycemia) Recent Labs 10/16/24 2258 10/17/24 1144 10/17/24 1306 10/17/24 1725 10/18/24 0022 10/18/24 0411 10/18/24 0540 10/18/24 1345 SODIUM 136 < > 138 < > 140 143 142 142 OSMOLALITY 291 -- 299 -- 302 -- -- 302 CHLORIDE 97* -- 100 -- 103 -- -- 102 < > = values in this interval not displayed. - Hemorrhage presumably 2/2 ischemic stroke etiology; evaluation for cause and source: - Complete TTE (see cards) - Obtain LDL level and statin therapy if indicated (see cards) - Obtain HA1C level (see endo) - Defer antiplatelet therapy and therapeutic anticoagulation - Consider urine drug screen on admission if no stroke risk factors - Consider hypercoagulability panel 24H-post tPA if no stroke risk factors - Initiate VTE prophylaxis after bleed stability established (see heme) - Initial CVA Management: - 10/16 Stroke alert performed; summary of imaging findings: as above - No TNk as hemorrhagic conversion - 10/16 NSGY consulted - Ongoing CVA management: - Hold Antiplatelets given hemorrhagic transformation - Daily NIHSS (see above) - Stroke etiology presumed to be cardioembolic based on the TOAST Criteria. Stroke risk factors include atrial fib.. - Complete TTE (see cards) - Obtain LDL level and statin therapy if indicated (see cards) - Obtain HA1C level (see endo) - Initiate antiplatelet therapy within 48H of admission (see cards) - Initiate VTE prophylaxis immediately if no tPA given or 24H post-thrombectomy if performed (see heme) - Develop therapeutic anticoagulation plan, if indicated based on CVA etiology (see cards) - Consider urine drug screen on admission if no stroke risk factors - Consider hypercoagulability panel 24H-post tPA if no stroke risk factors Pain/Sedation management: - Gabapentin 400 mg TID - Tylenol 650mg Q4H PRN Psych: No Current Issues Pulm: Bilateral Pulmonary Edema Respiratory Rate - set (bpm): 10 O2 Sat (%): 93 % (10/18 1800) O2 Device: nasal cannula (10/18 945) Flow (L/min): 3 (10/18 945) pH/PCO2/PO2/HCO3: 7.39/54/73/33 (10/18 0504) - Goal SpO2 >92%; wean FiO2 as tolerated - [id number], encourage pulmonary toileting - Duoneb Q6H PRN - BiPAP for air hunger - Pulmonary edema - 10/17 Given Lasix 100 mg total during day shift for fluid goal -1L - 10/18 Given Lasix 120 mg total during day shift for fluid goal -1 to -2 L - 10/17 CXR: pulmonary edema worse compared to prior - 10/18 CXR: no major change, stable moderately sized bilateral pleural effusions Cards: Atrial Fibrillation HTN Temp: [96.4 F (35.8 C)-97.6 F (36.4 C)] 96.8 F (36 C) Pulse (Heart Rate): [69-91] 82 Resp Rate: [12-22] 17 O2 Sat (%): [88 %-99 %] 93 % - Goal SBP <160, MAP >65 - Home antihypertensives: - Current regimen: - PRN labetalol and hydralazine - Amlodipine 5 mg daily - Coreg 12.5 mg Q12H - 10/17 TTE: technically difficult study; LVEF 60 - 65%, mild concentric LVH. No hemodynamically significant valve disease. - 10/16 troponin: - 10/17 trop repeat for air hunger: 10/17 BNP: 962 - 10/16 ECG: AFib, interfascicular block - Statin Therapy: Indicated if LDL >70; began Recent Labs 10/16/242257 CHOLESTEROL 165 TRIG 113 HDL 37* - Afib: Hold AC for now given ICH Renal/: No Current Issues Fluid Balance: - Goal: -1 L to -2 L - Beard cath placed 10/17 for close I/O monitoring Intake/Output Summary (Last 24 hours) at 10/18/2024 1801 Last data filed at 10/18/2024 1800 Gross per 24 hour Intake 1899.59 ml Output 5820 ml Net -3920.41 ml - Daily Chem 10; electrolytes replaced per NCCU protocol Recent Labs 10/16/24 2258 10/17/24 1144 10/18/24 0022 10/18/24 0411 10/18/24 0540 10/18/24 1345 SODIUM 136 < > 140 < > 142 142 POTASSIUM 3.8 < > 3.9 -- -- 3.8 CHLORIDE 97* < > 103 -- -- 102 CO2 < > 29 -- -- 34* BUN 9 < > 12 -- -- 13 CREATSERUM 0.50* < > 0.52* -- -- 0.58* PHOSPHORUS 3.0 -- 3.4 -- -- -- MAGNESIUM 1.6 -- 2.0 -- -- -- ICA 4.80 -- 4.73 -- -- -- < > = values in this interval not displayed. GI/Nutrition: No Current Issues Recent Labs 10/16/242044 ALBUMIN 3.5 BILIDIRECT 0.2 BILITOTAL 0.6 ALKPHOS 92 ALT 13 AST 14 TP 7.2 - DIET SOFT AND BITE SIZED (IDDSI 6) Liquid Thin (IDDSI 0) - [place] Swallow Screening Result: passed=cleared for oral intake - Monitor airway closely while still requiring intermittent BIPAP, okay for small snacks with supervision when BIPAP is off Bowel regimen: - Last Bowel Movement: (ORACLE OBIEE DEVELOPER) - Senna, miralax Stress ulcer prophylaxis: - not indicated Endo: DM Type 2 - Goal blood glucose 140-180 - 10/17 Endo consulted - Current regimen - Insulin glargine 32 U Q24H - Insulin SSI Q6H Recent Labs 10/16/24 2045 10/16/24 2258 10/18/24 0022 10/18/24 0027 10/18/24 0538 10/18/24 1345 GLUCOSE 224* < > 245* 220* 212* 187* HGBA1C 10.5* -- -- -- -- -- < > = values in this interval not displayed. ID: Wound Dehiscence - Chronic Right foot s/p debridement with podiatry Podiatry and ID consulted for osteomyelitis in RLE Recent Labs 10/16/24225710/17/24 0044 10/18/24 0022 WBC 12.56* -- 9.62 LACT -- 1.3 -- PROCALCITONI 0.05 -- -- - Hemphill Cx, procalcitonin, lactate - Temp (24hrs), Av F (36.1 C), Min:96.4 F (35.8 C), Max:97.6 F (36.4 C) - PRN Tylenol for T>100.4F - Most recent and positive cultures: Date Collected Source Result Date Finalized 10/18 Staph nasal swab P 10/17 Blood culture NG 06/24 10/18 (Follow up on date collected from outside hospital) Wound culture (outside hospital) Brandin 10/18 - Antiinfectives: Start Date Antiinfective Coverage Course Length Stop Date 10/16 Meropenem 11/22 10/16 Vancomycin 11/22 10/18 micafungin Brandin (on OSH wound culture) TBD TBD - Foot osteomyelitis - 10/17 ID (Team 5) consulted for abx: agree with repeating blood cultures, follow P cultures from OSH, agree with vanc + meropenem - 10/18 Added micafungin for brandin on wound culture from OSH, updated ID recs P Heme/Onc: Anemia of Chronic Disease Recent Labs 10/16/24 2045 10/16/24 2258 10/18/24 0022 10/18/24 1345 WBC 13.39* 12.56* 9.62 -- RBC 4.75 4.65 4.20* -- HGB 12.6* 12.6* 11.2* -- HCT 37.5* 37.0* 34.5* -- PLATELET 307 272 259 256 PT 14.5* -- -- -- PTT 33.6 -- -- -- INR 1.1 -- -- -- - Goal plt >100, INR <1.4, Hgb >7 DVT prophylaxis: - SCD - Lovenox DVT ppx - No Eliquis anticoagulation for at least 14 days from ICH Musc: RLE chronic wound - PT/OT consulted and following - Current Activity Order: Bed rest - 10/17 ID and Podiatry consulted - 10/18 OSH Cushion Worker who did fixation Dr. Ramon Garcia DPM, reach out 10/19 for surgical recommendations to pass onto [facility] Podiatry team - Imaging: - R foot xray 3 views: ordered, P Fall Risk: - Assessed for patient fall risk and discussed safety measures during rounding. Social/Dispo: - Code status: Full Code - /: Medications reconciled - Discharge planning per PCRM/SW. Complexity. Obesity, Class III Body mass index is 53.07 kg/m . - Follow with PCP for dietary and lifestyle modifications. Wound Documentation Any conditions listed below are present on admission unless otherwise specified. .Hypertension, Uncomplicated - Ischemic CVA, Location: Left MEASUREMENT PSYCHOLOGIST - hemorrhagic transformation ICU Checklist: [x] Assess pain Presence of Pain: reports pain/discomfort Presence of Pain Score (Auto-calculated): 0 [x] Both SAT & SBT [x] Choice of analgesia/ sedation See neuro [x] Delirium Overall CAM-ICU: Positive [x] Early mobility PT/OT consulted?: Yes CURRENT AM-PAC Mobility Raw Score: 7 CURRENT AM-PAC Mobility Functional Limitation: 92.36% Impaired in Basic Mobility [x] Family Engagement Primary Emergency Contact: Norma Rosas (HCPOA) Last updated: 5/1 family updated at bedside after rounds, NCCU spoke with pt's spouse at bedside [x] Get lines out [place]: inserted 10/16, removed 10/18 (indication: HTN) Beard: inserted 10/17, (indication: diuresis, fluid goals) Rectal tube: inserted , (indication:) Enteral access: inserted /, [ ] gastric; [ ] post-pyloric Central lines: Central Line LDAs Active Central Line Access Devices Name Placement date Placement time Site Days PICC Line - Single Lumen 10/16/24224910/16/242249 -- 1 Central Line Indications: No alternative access available Left PICC line from OSH If patient has multiple lines, please choose the answers of the next two questions to correlate with the lines listed above in descending order Can line/s be removed today? Select all that apply Line 1, no cannot be removed (PICC) Dressing/s Clean/Dry/Intact?: Select all that apply Line 1, Dressing not clean, dry, intact; nursing notified (PICC) Discussed with NCCU Attending, Dr. Thomas Jordan PA-C 10/18/24 6:01 PM Check the treatment team to find the assigned neurocritical care provider (resident, fellow, DISTRIBUTION FIELD ENGINEER, orPA) or page/call the corresponding number below NCC1 (Beds [id number]): [place] # [phone], pager #[phone] NCC2 (Beds 6087-7128, 12 Jing, and overflow): [place] #: [phone], pager #[phone] * Tony Deleon MD - 10/18/2024 6:17 AM EDT NEUROSURGERY PROGRESS NOTE: 10/18/24 S: hemorrhagic stroke vs underlying lesion O: PE: AxOx2 (person, time not place) Encephalopathic; confused PERRLA; tracking appropriately Face symmetric Fcx4 Full strength and AG throughout except L DF/PF in RLE Ex Fix in place + HAIDER wrap in RLE Temp: [97.2 F (36.2 C)-99 F (37.2 C)] 97.4 F (36.3 C) Pulse (Heart Rate): [65-102] 89 Resp Rate: [12-32] 20 O2 Sat (%): [95 %-99 %] 95 % Respiratory Rate - set (bpm): 10 O2 Sat (%): 95 % (10/18 0500) O2 Device: nasal cannula (10/19 419) Flow (L/min): 4 (10/19 419) Oxygen Concentration (%): 40 (10/180) I/O last 3 completed shifts: In: 3334.8 [I.V.:2384.3; IV Piggyback:950.5] Out: 2435 [Urine:2435] ICP: No data recorded WBC/Hgb/Hct/Plts: 9.62/11.2/34.5/259 (10/18 21) Na/K+/Phos/Mg/Ca: 143/3.9/3.4/2.0/-- (10/18 21-10/18 410) Bun/Creat/Cl/CO2/Glucose: 12/0.52/103/29/212 (10/18 21-10/18 537) Imaging: moderate multifocal left temporo-occipital parenchymal hemorrhage. Associated white matter hypoattenuation, with multifocal loss of duffy-white differentiation, predominantly localizing to the left MEASUREMENT PSYCHOLOGIST territory. This is associated with overlying sulcal effacement and mild generalized mass effect contributing to partial effacement of left lateral ventricle. There is trace intraventricular hemorrhage within the bilateral occipital horns. There is no significant midline shift. No herniation or hydrocephalus. A/P: Lani Zaragoza is a 69 y.o. male w/ a history of diabetes, afib on eliquis, HTN, HLD, PVD, and TODD who was admitted to OSH for debridement of right diabetic foot ulcer on 10/09. Noted to have mental status change 10/[address] head revealed left temporal hemorrhage. Neuro: neuro checks Q1H + vitals - MRI brain w/wo when able - hemorrhagic stroke care per neurovascular - goal SBP<140, INR<1.4, Platelets >100k - hold all antiplatelet agents and anticoagulation - admission to NCCU Cards: SBP<140 Resp: 4 L NC ID: afebrile, leukocytosis of 12.56 FEN/GI: DIET NPO with meds PPX: SCDs, Pharm DVT ppx (hold) Dispo: Pending clinical advancement; NCCU primary Please page [phone] ([phone]) with questions. Principal Problem: Ischemic cerebrovascular accident (CVA) Active Problems: ICH (intracerebral hemorrhage) Type 2 diabetes mellitus with hyperglycemia Present on Admission: Ischemic cerebrovascular accident (CVA) ICH (intracerebral hemorrhage) Complexity. Obesity, Class III Body mass index is 53.07 kg/m . - Follow with PCP for dietary and lifestyle modifications. Wound Documentation Any conditions listed below are present on admission unless otherwise specified. . * Amelia Jordan PA-C - 10/17/2024 6:17 PM EDT NEUROCRITICAL CARE HISTORY AND PHYSICAL HOSPITAL VISIT DEMOGRAPHICS Patient: Lani Zaragoza Code status: Full Code Admission date: 10/16/2024 8:33 PM Hospital days: LOS: 1 day CHIEF COMPLAINT stroke HISTORY OF PRESENT ILLNESS Lani Zaragoza is a 69 y.o. male with a past history of afib on Eliquis who presents as hemorrhagic stroke alert. A stroke alert was called for STAT consultation. LKW 1200. Pt was hospitalized at OSH for chronic foot wound since 10/09 and is s/p debridement with podiatry. He was meant to dc today to SNF but around 1200 he became acutely confused and aphasic. Stroke alert was called and CTH demonstrated L temporal hemorrage, possible hemorrhagic mass with 4mm MLS. He is on Eliquis for his hx of afib, but this has been held since 10/09 given foot procedures. He was placed on cardene gtt prior to transfer, but was paused about 20 minutes prior to arrival. He was transferred to [facility] for further management. INTERVAL HISTORY SINCE ADMISSION 10/16/2024: Admitted to NCCU 10/17: held MRI B given airway watch; BiPAP for air hunger; Endo consult for hyperglycemia; sodium goal >140 with 3% boluses; lasix for fluid goal PHYSICAL EXAM GENERAL: Alert, no acute distress HEENT: normocephalic, no scalp wounds nor lesions CARDIO: +S1S2, RRR, no m/r/g, no edema PULM: Rhonchorous to auscultation bilaterally, equal chest rise on nasal cannula ABDOMINAL: soft, nontender, nondistended, active bowel sounds EXTREMITIES: no wounds or lesions VASCULAR: + distal pulses, capillary refill <3 seconds, has left arm PICC line with no erythema,purulent drainage, or signs of infection and dressing is C/D/I. NEURO: Awake, tells his and oriented to person, year, not to situation/place/month. Mild dysarthric. No facial droop. PERRL, gaze midline. Follows commands x4, LUE antigravity without drift, LLE 3 to 4/5 strength antigravity with drift but not to bed, RUE antigravity without drift, RLE antigravity without drift. Sensation intact throughout. ASSESSMENT AND PLAN Neuro: (10/16/2024) Acute Left MEASUREMENT PSYCHOLOGIST CVA Left temporal ICH likely hemorrhagic transformation of ischemic stroke - ICH Management: - Monitor neurostatus with neurochecks Q1H - Prevent further expansion with goal SBP <140 (see cards) - 10/16 NSGY consult: Ct head, MRI - Daily NIHSS: NIH Stroke Scale: NIH Level of Conciousness (Provider): 0 NIH LOC Questions (Provider): 1 NIH LOC Commands (Provider): 0 NIH Best Gaze (Provider): 0 NIH Visual (Provider): 2 NIH Facial Palsy (Provider): 0 NIH Left Arm Motor (Provider): 0 NIH Right Arm Motor (Provider): 0 NIH Left Leg Motor (Provider): 1 NIH Right Leg Motor (Provider): 0 NIH Limb Ataxia (Provider): 0 NIH Sensory (Provider): 0 NIH Best Language (Provider): 1 NIH Dysarthria (Provider): 1 NIH Extinction and Inattention (Provider): 0 NIH Total Score (Provider): 6 - Imaging: - 10/16 CTA H/N: Examination is equivocal for mid/distal left posterior cerebral artery occlusion. Artifact from venous contamination and vessel tortuosity limits characterization, and this may reflect a vessel bifurcation. As such, presence of infarct with hemorrhagic conversion is not definitive, and underlying mass would be difficult to exclude on the basis of CT alone. MRI with and without contrast is advised to aid characterization, to include MR angiography to more convincingly assess patency of the left posterior cerebral artery. - 10/16 20:4700: Initial CT H: Left Temperooccipital ICH likely hemorrhagic transformation of left MEASUREMENT PSYCHOLOGIST stroke, ICH, mild mass effect - 10/17: 6H-stability CT H: mild increased edema surrounding ICH with 3 mm R-pickard MLS. Exam otherwise not significantly changed - / MRI B: P - Cytotoxic Cerebral Edema Management: - Goal Na >140 - Bolus as needed for goal (correct for hyperglycemia) Recent Labs 10/16/24 2045 10/16/24 2258 10/17/24 1144 10/17/24 1306 10/17/24 1725 SODIUM 136 136 138 138 140 OSMOLALITY 292 291 -- 299 -- CHLORIDE 99 97* -- 100 -- - Hemorrhage presumably 2/2 ischemic stroke etiology; evaluation for cause and source: - Complete TTE (see cards) - Obtain LDL level and statin therapy if indicated (see cards) - Obtain HA1C level (see endo) - Defer antiplatelet therapy and therapeutic anticoagulation - Consider urine drug screen on admission if no stroke risk factors - Consider hypercoagulability panel 24H-post tPA if no stroke risk factors - Initiate VTE prophylaxis after bleed stability established (see heme) - Initial CVA Management: - 10/16 Stroke alert performed; summary of imaging findings: as above - No TNk as hemorrhagic conversion - 10/16 NSGY consulted - Ongoing CVA management: - Hold Antiplatelets given hemorrhagic transformation - Daily NIHSS (see above) - Stroke etiology presumed to be cardioembolic based on the TOAST Criteria. Stroke risk factors include atrial fib.. - Complete TTE (see cards) - Obtain LDL level and statin therapy if indicated (see cards) - Obtain HA1C level (see endo) - Initiate antiplatelet therapy within 48H of admission (see cards) - Initiate VTE prophylaxis immediately if no tPA given or 24H post-thrombectomy if performed (see heme) - Develop therapeutic anticoagulation plan, if indicated based on CVA etiology (see cards) - Consider urine drug screen on admission if no stroke risk factors - Consider hypercoagulability panel 24H-post tPA if no stroke risk factors Pain/Sedation management: - Gabapentin 400 mg TID - Tylenol 650mg Q4H PRN Psych: No Current Issues Pulm: Bilateral Pulmonary Edema Respiratory Rate - set (bpm): 10 O2 Sat (%): 97 % (10/17 1800) O2 Device: Nocturnal CPAP/BIPAP (10/17 1426) Flow (L/min): 4 (10/17 0813) Oxygen Concentration (%): 40 (10/17 1426) pH/PCO2/PO2/HCO3: 7.44/44/80/30 (10/17 1144) - Goal SpO2 >92%; wean FiO2 as tolerated - [id number], encourage pulmonary toileting - Duoneb Q6H PRN - BiPAP for air hunger - Pulmonary edema - 10/17 Given Lasix 100 mg total during day shift for fluid goal -1L - 10/17 CXR: pulmonary edema worse compared to prior Cards: Atrial Fibrillation HTN Temp: [97.3 F (36.3 C)-99 F (37.2 C)] 99 F (37.2 C) Pulse (Heart Rate): [63-124] 74 Resp Rate: [17-35] 17 BP: (127-190)/(70-91) 170/78 O2 Sat (%): [90 %-98 %] 97 % Weight: [163 kg (359 lb 5.6 oz)-172 kg (379 lb 3.1 oz)] 163 kg (359 lb 5.6 oz) - Goal SBP <140, MAP >65 - Home antihypertensives: - Current regimen: - PRN labetalol and hydralazine - Nicardipine drip - Amlodipine 5 mg daily - Coreg 6.25 mg Q12H - / TTE: read - 10/16 troponin: 6 - 10/17 trop repeat for air hunger: 6 - 10/17 BNP: 962 - 10/16 ECG: AFib, interfascicular block - Statin Therapy: Indicated if LDL >70; began Recent Labs 10/16/248 CHOLESTEROL 165 TRIG 113 HDL 37* - Afib: Hold AC for now given ICH Renal/: No Current Issues Fluid Balance: - Goal: -1 L - Beard cath placed 10/17 for close I/O monitoring Intake/Output Summary (Last 24 hours) at 10/17/2024 1854 Last data filed at 10/17/2024 1840 Gross per 24 hour Intake 3134.43 ml Output 1735 ml Net 1399.43 ml - Daily Chem 10; electrolytes replaced per NCCU protocol Recent Labs 10/16/24 2045 10/16/24 2258 10/17/24 1144 10/17/24 1306 10/17/24 1725 SODIUM 136 136 < > 138 140 POTASSIUM 3.8 3.8 -- 4.3 -- CHLORIDE 99 97* -- 100 -- CO2 -- -- BUN 9 9 -- 12 -- CREATSERUM 0.52* 0.50* -- 0.46* -- PHOSPHORUS -- 3.0 -- -- -- MAGNESIUM 1.7 1.6 -- -- -- ICA -- 4.80 -- -- -- < > = values in this interval not displayed. GI/Nutrition: No Current Issues Recent Labs 10/16/242044 ALBUMIN 3.5 BILIDIRECT 0.2 BILITOTAL 0.6 ALKPHOS 92 ALT 13 AST 14 TP 7.2 - DIET NPO with meds - [employer] Swallow Screening Result: passed=cleared for oral intake - Keeping NPO for airway watch, on BIPAP, re-evaluate on 10/18/24 Bowel regimen: - Last Bowel Movement: (ORACLE OBIEE DEVELOPER) - Senna, miralax Stress ulcer prophylaxis: - not indicated Endo: DM Type 2 - Goal blood glucose 140-180 - 10/17 Endo consulted - Current regimen - Insulin glargine 16 U Q24H - Insulin SSI Q6H Recent Labs 10/16/24203710/16/24204410/16/24225710/17/24 1306 GLUCOSE 240* 224* 223* 252* HGBA1C -- 10.5* -- -- ID: Wound Dehiscence - Chronic Right foot s/p debridement with podiatry Podiatry and ID consulted for osteomyelitis in E Recent Labs 10/16/24204410/16/24225710/17/24 0044 WBC 13.39* 12.56* -- LACT -- -- 1.3 PROCALCITONI -- 0.05 -- - Hemphill Cx, procalcitonin, lactate - Temp (24hrs), Av.8 F (36.6 C), Min:97.3 F (36.3 C), Max:99 F (37.2 C) - PRN Tylenol for T>100.4F - Most recent and positive cultures: Date Collected Source Result Date Finalized 10/16 Staph nasal swab 10/17 Blood culture P - Antiinfectives: Start Date Antiinfective Coverage Course Length Stop Date 10/16 Meropenem 11/22 10/16 Vancomycin 11/22 Heme/Onc: Anemia of Chronic Disease Recent Labs 10/16/24204410/16/24 2258 WBC 13.39* 12.56* RBC 4.75 4.65 HGB 12.6* 12.6* HCT 37.5* 37.0* PLATELET 307 272 PT 14.5* -- PTT 33.6 -- INR 1.1 -- - Goal plt >100, INR <1.4, Hgb >7 DVT prophylaxis: - SCd, pharmacological prophylaxis after follow up CTH - No Eliquis for at least 14 days from ICH Musc: RLE chronic wound - PT/OT consulted and following - Current Activity Order: Bed rest - 10/17 ID and Podiatry consulted - Will follow up 10/18 to obtain outside Pod records Fall Risk: - Assessed for patient fall risk and discussed safety measures during rounding. Social/Dispo: - Code status: Full Code - /: Medications reconciled - Discharge planning per PCRM/SW. Complexity. Obesity, Class III Body mass index is 53.07 kg/m . - Follow with PCP for dietary and lifestyle modifications. Wound Documentation Any conditions listed below are present on admission unless otherwise specified. .Hypertension, Uncomplicated - Ischemic CVA, Location: Left MEASUREMENT PSYCHOLOGIST - hemorrhagic transformation ICU Checklist: [x] Assess pain Presence of Pain: reports pain/discomfort Presence of Pain Score (Auto-calculated): 0 [x] Both SAT & SBT [x] Choice of analgesia/ sedation See neuro [x] Delirium Overall CAM-ICU: Positive [x] Early mobility PT/OT consulted?: Yes CURRENT AM-PAC Mobility Raw Score: 8 CURRENT AM-PAC Mobility Functional Limitation: 86.62% Impaired in Basic Mobility [x] Family Engagement Primary Emergency Contact: Norma Rosas (HCPOA) Last updated: 10/17 family updated at bedside after rounds [x] Get lines out [place]: inserted 10/16, (indication: HTN) Beard: inserted 10/17, (indication: diuresis, fluid goals) Rectal tube: inserted , (indication:) Enteral access: inserted /, [ ] gastric; [ ] post-pyloric Central lines: Central Line LDAs Active Central Line Access Devices Name Placement date Placement time Site Days PICC Line - Single Lumen 10/16/24224910/16/242249 -- less than 1 Central Line Indications: No alternative access available Left PICC line from OSH If patient has multiple lines, please choose the answers of the next two questions to correlate with the lines listed above in descending order Can line/s be removed today? Select all that apply Line 1, no cannot be removed (PICC) Dressing/s Clean/Dry/Intact?: Select all that apply Line 1, Dressing not clean, dry, intact; nursing notified (PICC) Discussed with NCCU Attending, Dr. Thomas Jordan PA-C 10/17/24 6:54 PM Check the treatment team to find the assigned neurocritical care provider (resident, fellow, DISTRIBUTION FIELD ENGINEER, orPA) or page/call the corresponding number below NCC1 (Beds [id number]): Russ # [phone], pager #[phone] NCC2 (Beds 8280-5458, 12 Jing, and overflow): [place] #: [phone], pager #[phone] * ROSALINDA Kwong - 10/17/2024 3:44 PM EDT Reason for Consult: Discharge Planning Consulted By: Medical Team Level(s) of Care Discussed: SNF Patient and/or Network Liaison's Preferred Geographic Area for Discharge: [address] Patient and/or Network Liaison's Preference for Providers to Include? [facility] Patient and/or Network Liaison's Preference for Providers to Exclude? N/A Patient and/or Network Liaison's Discussion: Discussed referral process with the patient's son/1st alt OSCAR Mercado ([phone]). Who confirmedpatient was reserved with SN[facility]. Rogelio is agreeable to have a placement referral initiated to [facility]. MISTY Mercer, ROSALINDA Advanced Quality Engineer Available by Secure Chat * Sarah Nichols, TITLE PROCESSOR - 10/17/2024 3:36 PM EDT Discharge Planning Assessment Is the patient able to participate in the assessment?: No Explanation of why patient is unable to participate: AMS Care Management Plan IA completed with patient's son Rogelio at bedside. Patient with AMS. Anticipated discharge dispo to SNF - referral sent in [facility] to [facility] [place], [place]. [facility] Family remains in agreement to SNF. Patient lives alone in a one story home with 2 steps to enter. Patient does not have any teachable caregivers. Patient's son reports he lives 6 hours from patient, patient's sister lives an hour awayfrom patient. At baseline patient uses a walker, wheelchair, shower seat, straight cane, glucometer, and CPAP. Patient has completed HCPOA documentation on file. Patient's sister Norma Warren ([phone]) is listed as HCPOA and patient's son Rogelio Zaragoza ([phone]) is listed as 1st alternate HCPOA. Initial Discharge Planning Expected Discharge Disposition: Nursing Home Facility Transportation Available for Discharge: Ambulance Anticipated DME: unknown at this time Anticipated Services at Discharge: Occupational Therapy, Physical Therapy, Outpatient follow up, Speech Therapy, Nursing Home Patient Assessment Completed: Initial Legal Next of Kin Does the patient have a Guardian?: No Spouse: No Adult Child(rory), List All Adult Children: Yes Name and Contact information: Rogelio Zaragoza ([phone]) Would you like to add additional adult children?: No Parent(s) - List All Living Parents: No Adult Sibling(s), List All Adult Siblings: Yes Name and Contact information: Norma Warren ([phone]) Would you like to add additional adult siblings?: No Nearest Adult Related by Blood or Adoption: No Patient Reports No Relatives by Blood or Adoption.: No Referral to Social Work to Identify Legal Next of Kin?: No Reviewed and Updated in Demographics? : Yes Advanced Care Planning Has the patient completed Advance Directives?: Completed, Available in Medical Record Medication Management Does the patient have prescription insurance coverage? : Yes Is the patient on Anticoagulation? : Yes [facility] - [place] [address] [address] [facility] [address] Living Environment and Support System Is the patient from a facility or long term?: No Living Environment: House Patient Caregiving Responsibilities: Self Patient-identified caregiver/support network: Family Who does the patient identify as a teachable caregiver(s)?: None Services Does the patient use a home health or hospice agency?: No Current with dialysis?: No Does the patient use any community programs or services?: No Does patient use DME? : walker, wheelchair, glucometer, cpap, straight cane, shower seat Does the patient use oxygen?: No Does patient use medical supplies? : none Anticipated Changes Related to Illness/Injury? : No Initial ADLs Prior to Arrival What is the patient's baseline physical functioning prior to this acute illness?: independent What is the patient's baseline cognitive functioning prior to this acute illness?: independent Is the patient's baseline functioning changed by this acute illness? : Unable to assess Concerns with patient being able to care for themselves at home? : Yes Map Clerk Does the patient or assisted sales representative express financial concerns? : No MISTY Mercer, ROSALINDA Advanced Quality Engineer Available by Secure Chat * Sangita Valenzuela, [facility] - 10/17/2024 2:24 PM EDT Department of Pharmacy Admission Medication Reconciliation Note Patient: Lani Zaragoza Room/Bed: 1040/A I have reviewed the patient's home medication list with the following sources Patient's family member/caregiver (Son, sister) and Pharmacy ([facility] The home medication list status is: in-progress. This medication list has been updated based on pharamcy records carroll - patient's son and sister unable to confirm all home medications and medications allergies - please confirm with the patient when able. All changes to the home medication list have been updated inIHIS. Updated ORACLE OBIEE DEVELOPER Med List: Prior to Admission Medications Prescriptions Metoprolol 50 MG tab regular release Sig: Take 1 tablet by mouth 2 times daily. amLODIPine 5 MG tablet Sig: Take 1 tablet by mouth daily. apixaban 5 MG tablet Sig: Take 1 tablet by mouth every 12 hours. Note (10/17/2024): Last filled 06/19/25 #60 gabapentin 800 MG tablet Sig: Take 1 tablet by mouth 3 times daily. losartan 100 MG tablet Sig: Take 1 tablet by mouth daily. metFORMIN 1000 MG tablet Sig: Take 1 tablet by mouth 2 times daily with meals. Facility-Administered Medications: None Other Comments: The patient's allergies have been reviewed with Patient's family member/caregiver. Of note, the patient's sister reports that the patient has an allergy to penicillins. She was unable to remember the exact reaction but reports that it "was pretty severe". Patient's son unsure of any medication allergies. [facility] does not have any allergies on file for the patient and notably the patient has filled Augmentin twice in the past month (09/12/24 and 10/14/24) Eliquis last filled 06/19/25 for a 30 day supply - unclear if patient still taking Please feel free to contact me with any further questions. Name: Sangita Valenzuela [facility] Phone #: [phone] Date/Time: 10/17/2024 2:24 PM Time Spent: 20 minutes * EVETTE Spann - 10/17/2024 1:10 PM EDT Speech Language Pathology Attempt Note 10/17/2024 GEARMAN Therapy Completed: Attempted speech/lang/cog Attempted Reason: Patient is not medically optimized to tolerate therapy program (requiring BiPap) Received consult for swallow evaluation. However, patient passed [place] Swallow Screening by nursing.Per conversation with medical team, currently holding PO diet pending improved respiratory status. Goal for diet initiation following stable respiratory status. Swallow eval by GEARMAN will not be completed at this time unless this service notified of change in status or re-consult for swallow eval placed. No charge Santa Kuo MA, CCC-GEARMAN Pager: [phone] License: [id number] Email: [email or web address] Time In: 1310 Time Out: 1310 Total Visit Time: 0 minutes Total Treatment Time (skilled, billable minutes): 0 minutes * Cory Guzman APRN-MICHAEL - 10/17/2024 11:55 AM EDT Neurovascular Stroke Service Intracerebral Hemorrhage Note IDENTIFYING INFORMATION Lani Zaragoza MR# [id number] 10/17/2024 HISTORY OF PRESENT ILLNESS Lani Zaragoza is a 69 y.o. male with PMH significant for A fib on Eliquis who was admitted to an outside hospital on 10/09/24 for chronic foot wound and is s/p debridement with podiatry. On the day hewas to be discharged to SNF on 10/16/24 he became acutely confused and aphasic. Stroke alert was called and CTH demonstrated L temporal hemorrage. His Eliquis was being held for surgery since 10/09. [facility]. NIHSS 12 on arrival. LKW 1200 on 10/16. INTERVAL HISTORY 10/17: Brain MRI pending. Brother updated at bedside. PHYSICAL EXAM Gen: awake, alert, NAD HEENT: normocephalic, no scalp lesions or tenderness, PERRLA, EOMI Neck: trachea midline CV: +S1S2, RRR, no m/r/g Lungs: LCTA bilaterally with equal chest rise Abd: soft, nontender, nondistended, +BS x4 quadrants Extrem: Warm and well perfused, no cyanosis, right leg/foot dressing Neuro: Oriented x3, ODELL x4, sensation intact and equal bilaterally CN II - Right hemianopia CN II/III - PERRLA CN III/IV/ - EOMI CN V - Light touch to face intact in all 3 divisions CN VII - Facial movement intact and symmetrical bilaterally CN VIII - Hearing intact CN X - Cough present CN XI - muscular movement of shoulders and sternocleidomastoid muscles intact and equal bilaterally CN XII - midline protrusion of tongue MOTOR EXAMINATION: Right hemiparesis with drift NIHSS Provider NIH Stroke Scale NIH Interval (Provider): daily NIH Level of Conciousness (Provider): 0 NIH LOC Questions (Provider): 1 NIH LOC Commands (Provider): 0 NIH Best Gaze (Provider): 0 NIH Visual (Provider): 2 NIH Facial Palsy (Provider): 0 NIH Left Arm Motor (Provider): 0 NIH Right Arm Motor (Provider): 1 NIH Left Leg Motor (Provider): 0 NIH Right Leg Motor (Provider): 2 NIH Limb Ataxia (Provider): 0 NIH Sensory (Provider): 0 NIH Best Language (Provider): 1 NIH Dysarthria (Provider): 0 NIH Extinction and Inattention (Provider): 1 NIH Total Score (Provider): 8 Intracerebral Hemorrhage Volume Intracerebral Hemorrhage Score Score 30 Day Mortality following ICH 0 0% Mortality 1 13% Mortality 2 26% Mortality 3 72% Mortality 4 97% Mortality 5 100% Mortality ASSESSMENT AND PLAN Neuro: 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 No significant carotid or vertebral artery stenosis MRI brain w and w/o: Pending TTE: Pending LDL 105, A1c 10.5 -Stroke Etiology (TOAST Criteria): Work up pending -Antiplatelet plan: not started due to acute hemorrhage -Statin therapy: Will need to start if found to have acute ischemic stroke -Blood Pressure goal: SBP <140 -Continue to hold Eliquis for now Hemorrhagic Stroke Core Measures -NHISS on admission 16 -Patient has been started on Mechanical (SCD's) and Pharmacological (SQ heparin) DVT prophylaxis will be started after stable HCT. -Antiplatelet therapy is not indicated. -Anticoagulation therapy not indicated in hemorrhagic stroke -Patients LDL 105 and HgbA1c 10.5 were checked -Dysphagia screening ordered, and will be completed prior to patient receiving oral intake. -Stroke education booklet has been provided both written and verbal education to the patient and family regarding hemorrhagic strokes. We have reviewed the patient's personal modifiable risk factors including: A fib as well as education on reducing these risk factors. -Patient is being assessed for Rehab by PT/OT/Speech and PM&R if indicated. Cory Guzman APRN-MICHAEL 10/17/2024 12:50 PM VITAL SIGNS Temp: [97.3 F (36.3 C)-98 F (36.7 C)] 98 F (36.7 C) Pulse (Heart Rate): [63-124] 67 Resp Rate: [18-35] 18 BP: (127-190)/(70-91) 170/78 O2 Sat (%): [90 %-98 %] 97 % Weight: [163 kg (359 lb 5.6 oz)-172 kg (379 lb 3.1 oz)] 163 kg (359 lb 5.6 oz) IMAGING/DIAGNOSTIC STUDIES MEDICATIONS amLODIPine 5 mg Oral Daily carveDILOL 6.25 mg Oral Q12H fentaNYL Citrate (PF) Gabapentin 400 mg Oral TID hydrALAZINE 25 mg Oral Q8H Insulin regular Subcutaneous Q6H meropenem 1 g Intravenous Q8HNS vancomycin 1,250 mg Intravenous Q12HNS Cosigned by Israel Schreiber MD at 10/17/2024 9:15 PM EDT Associated attestation - Israel Schreiber MD - 10/17/2024 9:15 PM EDT Date of service: 10/17/24 I have interviewed and examined patient. I have reviewed Resident/Fellow/MADHURI note and agree with the following highlights, additions, and addendums: Mr. Zaragoza is a 69M w/ A fib on Eliquis who was admitted to an outside hospital on 10/09/24 for chronic foot wound and is s/p debridement with podiatry. On the day he was to be discharged to SNF on 10/16/24 he became acutely confused and aphasic. Stroke alert was called and CTH demonstrated L temporal hemorrhage with surrounding hypodensity. His Eliquis was being held for surgery since 10/09. [facility] NIHSS 12 on arrival to [facility]. His repeat imaging stable. Highest concern for stroke with hemorrhagic transformation in setting of afib and eliquis being held for surgery. MRI pending. SBP less than 160. Under [facility] care. Stroke to follow peripherally. I personally attended this patient and spent a total time of 45minutes evaluating this patient including clinical assessment, review of chart, medical history imaging, and determining appropriate treatment and workup. Israel Schreiber MD * Dillan Guzman MD - 10/17/2024 11:00 AM EDT I have independently seen and examined the patient on 10/17/24. I agree with the history, examination, assessment and plan as documented by the DISTRIBUTION FIELD ENGINEER with my changes/additions added. Patient is a 69 yo M with a hx of poorly controlled DM2 with neuropathy, HTN, TODD, pafib on Eliquisthat was held for surgical procedure, R heel diabetic ulcer with osteomyelitis S/p excisional debridement down to bone on 10/11 with podiatry, MRSE bacteremia on Vancomycin and meropenem with repeatedexcisional debridement of wound and external fixator placement for nonweightbearing status with podiatry on 10/15 who was discharged to SNF and presented with aphasia and altered mental status. Found to have an acute L temporo-occipital ICH, IVH and mass effect. Transferred to [facility]U Interval History: Admitted to [facility]U overnight, on BiPAP Scheduled Meds: amLODIPine 5 mg Oral Daily fentaNYL Citrate (PF) Insulin regular Subcutaneous Q6H meropenem 1 g Intravenous Q8HNS Metoprolol 25 mg Oral Q12H vancomycin 1,250 mg Intravenous Q12HNS Labs: Chem 7: Lab Results Component Value Date SODIUM 136 10/16/2024 POTASSIUM 3.8 10/16/2024 CHLORIDE 97 (L) 10/16/2024 CO2 29 10/16/2024 GLUCOSE 223 (H) 10/16/2024 BUN 9 10/16/2024 CREATSERUM 0.50 (L) 10/16/2024 BUNCREARATIO 18 10/16/2024 OSMOLALITY 291 10/16/2024 GFR >90 10/16/2024 CBC: Lab Results Component Value Date WBC 12.56 (H) 10/16/2024 HGB 12.6 (L) 10/16/2024 HCT 37.0 (L) 10/16/2024 PLATELET 272 10/16/2024 MCV 79.6 10/16/2024 Physical Exam: Vital Signs: Blood pressure 170/78, pulse 76, temperature 97.7 F (36.5 C), temperature source Oral,resp. rate (!) 27, height 1.753 m (5' 9"), weight (!) 163 kg (359 lb 5.6 oz), SpO2 95%. General: no acute distress HEENT: normocephalic, atraumatic Cardiovascular: +S1S2, irregular rhythm, +1 edema, + distal pulses, capillary refill < 3 seconds Pulmonary: Reduced to auscultate at bases Abdominal: soft, nontender, nondistended, active bowel sounds Extremities: R foot debridement, dressing is on, external fixator Skin: no rash Neurology: awake, follows simple commands in all ext, weaker on the R Assessment and Plan: Neurology: Acute L temporo-occipital ICH, IVH concerning for hemorrhagic transformation of ischemic stroke - etiology of stroke is likely cardio-embolic in the setting of pAfib Cerebral edema, mass effect and MLS of the brain - Neurochecks with pupillometer - Most recent CTH with stable, mild increased edema - Obtain MRI brain W/Wo contrast when able - SBP <160 in 24 hours post bleed - MAP >65, Na goal 140-150. PRN 3% HTS to achieve goal. Plt >100K and INR <1.4 - Hold all anticoagulation and antiplatelets - Atorvastatin - PT/OT/GEARMAN evaluation - Continue home gabapentin for peripheral neuropathy Pulmonary: Acute hypoxic respiratory failure TODD Pulmonary edema - acute Oxygen Therapy O2 Sat (%): 95 % O2 Device: NIPPV(NIMV) Flow (L/min): 4 Oxygen Concentration (%): 40 - PRN ABG - Close airway watch, at risk for airway loss and intubation - Wean BiPAP as tolerated, we will try to use at night time and during naps - IV Lasix with I&Os goal - 500 to -1L Cardiovascular: Essential HTN HLD pAfib - Hold Eliquis in the setting of ICH - SBP goal< 160, MAP goal >65. PRN Hydralazine and Labetalol. Nicardipine gtt, wean as tolerated. Gradually resume home BP meds - TTE with EF of 60-65%, bi-atrial enlargement. No hemodynamic significant valvular disease Nephrology: - Lasix as above GI/Nutrition: - NPO for airway watch - Bowel regimen to prevent constipation Endocrinology: Poorly controlled DM with hyperglycemia - A1c of 10.5 - Start insulin gtt - Obtain Endocrinology to help with hyperglycemia management - Goal blood glucose 140-180 ID: R heel diabetic ulcer with osteomyelitis S/p excisional debridement down to bone on 10/11 with podiatry, with repeated excisional debridement of wound and external fixator placement for nonweightbearing status with podiatry on 10/15 MRSE bacteremia Wound culture at [facility] was positive for Proteus, Enterococcus, Morganella, strep and anaerobes. Continue follow up - Continue IV Vancomycin and meropenem. Initial plan for 6 weeks - Obtain ID consult - Repeat blood cultures here - PRN Tylenol for T>100.4F - Consult podiatry Heme/Onc: - Goal plt >100, INR <1.4, Hgb >7 - VTE prophylaxis: - SCDs - Chemical prophylaxis - Hold Acute deconditioning - PT/OT consulted and following - Mobility as tolerated Additional details and other supportive care as per the DISTRIBUTION FIELD ENGINEER note from the same day This patient is critically ill, unstable and is at high risk of imminent or life threatening deterioration due to acute hypoxic respiratory failure, acute pulmonary edema, acute L ICH, cerebral edema, IVH, bacteremia, R heel diabetic foot ulcer with osteomyelitis, poorly controlled diabetes, HTN, afib requiring BiPAP, close airway watch, hypertonic saline, close neurologic and hemodynamic monitoring. I personally spent 38 minutes in the intensive care unit providing critical care services to the patient today independent of procedures, teaching and other care providers. Management of the above was performed. My time managing this critically ill patient included review of interval history, laboratories, radiology and consultation reports; performing a physical examination; discussing the patient with the multi-disciplinary team and managing life sustaining therapies to prevent imminent clinical deterioration. Dillan Guzman MD Neurocritical Care Attending * Sangita Valenzuela, [facility] - 10/17/2024 10:35 AM EDT Department of Pharmacy Antimicrobial Stewardship Documentation Note Patient: Lani Zaragoza Room/Bed: 1040/A Restricted Antimicrobial Approval - Cell Lead Information about restricted antimicrobials at [facility] can be found here: Restricted Antimicrobial Guide. A request was made by the primary team for the following restricted antimicrobial(s): meropenem The patient meets the following criteria for this approval: Continuation of current home therapy The correspond ASP code is: [id number]. The recommended duration of therapy for the patient s infection is 6 weeks (EOT 11/22/24). This therapy has been discussed with the primary medical service. Please feel free to contact me with any further questions. Name: Sangita Valenzuela RPH Phone: [phone] Date/Time: 10/17/2024 10:36 AM * EVETTE Spann - 10/17/2024 8:01 AM EDT Speech Language Pathology Attempt Note 10/17/2024 Swallow POC Attempted Reason: Other (see comments) (pt passed del swallow screen, pending on clarification from medical team if formal swallow evaluation with GEARMAN warranted.) EVETTE Spann Time In: 800 Time Out: 800 Total Visit Time: 0 minutes Total Treatment Time (skilled, billable minutes): 0 minutes * Yahaira Alcocer OT - 10/17/2024 7:57 AM EDT Acute Occupational Therapy Evaluation Prior Gross Functional Mobility: independent Current AM-PAC score(s): CURRENT AM-PAC Activity Raw Score: 12 Based on the above AM-PAC score(s) and OT clinical judgment, discharge destination recommendation is: Nursing Home Facility Barriers to discharge home: Lack of appropriate DME, Lack of social support to meet functional needs at home, Patient needs assistance with functional mobility, Patient needs assistance with ADLs, Patient needs assistance with IADLs (see note below), Patient needs assistance with medication management, Patient needs assistance with self-care for medical condition (see note below), Pain managementconcerns, Cognitive impairments that impact safety (see note below), Lack of supervision necessary to mitigate fall risk, Assistance needed to ensure precautions are maintained (see note below), Unsafe home environment given patient's current status (see note below) Mobility equipment available at home: manual wheelchair, front-wheeled walker, straight cane ADL equipment available at home: shower chair, grab bars Equipment recommendations for discharge: patient lift, wheelchair Equipment issued: Current therapy frequency recommendation(s) in acute: 5 times a week Activity Recommendations for outside of rehab session: Shira lift. Precautions and Weightbearing Status: OT Existing Precautions/Restrictions: fall, cardiac, supplemental oxygen, weight bearing (Exit alarm.) Telemetry, Arterial line Patient Safety Communication Prior to Visit: Nursing Current brace/orthoses: (Right LE ex-fix.) Right Lower Extremity : non-weight bearing Subjective: Pt presenting with moderate confusion throughout session, as well as word- finding difficulties, following one step commands with increased time/effort. Pain: General Pain Documentation (Adult, OB, Peds) Presence of Pain: reports pain/discomfort Pain Location: back, foot, right, leg, right Home Setting Residence: House (One-level home.) Lives With: alone Patient receives help from : none Patient reported support for discharge planning: none First floor setup: bedroom, tub shower, grab bars Number of stairs to enter home: 0 Number of stairs in home: 0 Mobility Equipment Available: manual wheelchair, front-wheeled walker, straight cane ADL Equipment Available: shower chair, grab bars Home Environment Details: Unable to ensure accuracy of Occupational Profile information collected via pt this date due to current deficits in cognition/mentation/language. 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 Vocation: retired IADL History IADLs: other (see comments) IADL Comments: Pt reports managing own medications, etc. and relying on "eating out" for meals/food. Pt denies receiving assistance for any IADL engagement. Objective/Observation: Vitals/Vitals Responses to Treatment: No adverse reactions noted. O2 Device: nasal cannula Flow (L/min): 4 Vision Screen Currently wearing corrective lenses: No Clinical Observations: This date, pt appears to present with likely aspects of right inattention positioning with a left gaze/cervical rotation preference. With cues, pt able to scan into right visual field, but with brief/poor visual attention. Pt unable to read text on electric board about 5-6 feet from self. Visual Impairments Observed?: Yes Speech Speech: word-finding difficulties, other (see comments) (Pt appears to present with moderate expressive and mild receptive language deficits.) Hearing Hearing: hard of hearing (Mild.) Cognition Overall Cognitive Status: Impaired Arousal/Alertness: Delayed responses to stimuli Orientation Level: Oriented to person (Pt reported the current month as "1st or 2nd" when questioning and unable to report current location despite being provided options.) Following Commands: Follows one step commands with increased time, Follows one step commands with repetition Safety Judgment: Decreased awareness of need for assistance, Decreased awareness of need for safety Awareness of Errors: Decreased awareness of errors Deficits: Not aware of deficits Attention Span: Attends with cues to redirect, Difficulty attending to directions, Difficulty dividing attention Memory: Decreased fci memory, Decreased short term memory Problem Solving: Assistance required to identify errors made, Assistance required to generate solutions, Assistance required to implement solutions Cognition Comments: Delayed processing rate/motor planning; Moderate confusion; Overall, decreased insight into deficits/safety awareness. ADLs: ADL Anticipated Performance (ADLs not directly observed this session): Eating, Grooming, Bathing, UE Dressing, LE Dressing, Toileting Eating Assistance: Minimal Eating Location: bed level Grooming Assistance: Minimal Grooming Location: bed level Bathing Assistance: Maximal Bathing Location: bed level UE Dressing Assistance: Moderate UE Dressing Location: bed level LE Dressing Assistance: Total LE Dressing Location: bed level Toilet Assistance: Total Toileting Location: bedpan Extremity Assessments: RUE Assessment RUE Assessment: AROM WFL, Strength Impaired, Tone WFL Right UE Assessment Details: About 3/5 grossly; Moderate grasp strength. LUE Assessment LUE Assessment: AROM WFL, Strength Impaired, Tone WFL Left UE Assessment Details: About 3+/5 grossly; Moderate grasp strength. Balance: Sitting Balance Static Sitting-Level of Assistance: Maximum assistance Dynamic Sitting-Level of Assistance: Maximum assistance Sitting Balance Skilled Intervention/Details: Seated EOB for about 5 minutes, mostly requiring cuesfor safety and with retropulsive lean. Pt with positive righting reactions, but decreased ability to correct to upright without passive assistance. Neuro: Sensation Overall Sensation: Impaired Sensation Comments: Pt reports chronic numbness/tingling in LEs due to PVD. Pt denies limitations in UEs this date. Fine Motor Coordination Left Hand, Finger To Nose: severe impairment Right Hand, Finger To Nose: severe impairment Left Hand Thumb/Finger Opposition Skills: moderate impairment Right Hand Thumb/Finger Opposition Skills: moderate impairment Left Hand, Diadochokinesis Skills: moderate impairment Right Hand, Diadochokinesis Skills: moderate impairment Fine Motor Coordination Tests: Right UE deficits appear mildly greater than left UE, but impaired bilaterally. Skin and Edema: Skin Integrity Skin Integrity Description: WFL (Visible areas.) Edema Edema: present (Bilateral LEs (right>left).) Mobility Assessment: Scooting Bridging Mobility [place] Level: Scooting/Bridging: dependent (less than 25% patient effort) Physical Assist: Scooting/Bridgin person assist Bed Features/Set-up: Scooting/Bridging: Flat Supine to Sit Mobility [place] Level: Supine->Sit: maximum assist (25% patient effort) Physical Assist: Supine->Sit: 2 person assist Bed Features/Set-up: Supine->Sit: Head of bed elevated, Use of bed rail Skilled Rationale: Cues for increased safety, Initiation and execution of task, Technique of activity, Full extension to upright positioning/posture, Facilitate anterior shift, Tactile cues, Verbal cues, Hand placement, Sequencing, Positioning Skilled Intervention/Details: Supine->Sit: Cues for initiation/sequencing/safety, as well as assisting with upper trunk support, LEs, and aligning hips to midline. Increased time/effort for performance with pt appearing increasingly limited by cognition/comprehension. Sit to Supine Mobility [place] Level: Sit->Supine: maximum assist (25% patient effort) Physical Assist: Sit->Supine: 2 person assist Bed Features/Set-up: Sit->Supine: Flat, Use of bed rail Skilled Rationale: Cues for increased safety, Initiation and execution of task, Technique of activity, Tactile cues, Verbal cues, Hand placement, Sequencing, Positioning Skilled Intervention/Details: Sit->Supine: Cues for initiation/sequencing/safety, as well as assisting with upper trunk support and LEs. Outcome Score(s): CURRENT AM-PAC Daily Activity Inpatient Short Form Putting on/Taking Off Lower Body Clothin - Total Assistance Bathin - A Lot of Assistance Toiletin - Total Assistance Putting on/Taking Off Upper Body Clothin - A Lot of Assistance Groomin - A Little Assistance Eatin - A Little Assistance CURRENT AM-PAC Activity Raw Score: 12 CURRENT AM-PAC Activity Functional Limitation/Modifier: 66.57% Currently Impaired in Daily Activity- CL Assessment & Plan: Patient was admitted for debridement of right diabetic foot ulcer and presenting with change in mental status and found to have a left MEASUREMENT PSYCHOLOGIST CVA and left temporal IPH and seen for therapy evaluation related to impairments in endurance/activity tolerance, bed mobility, seated/standing balance, functional transfers/mobility, UE strength/coordination, vision, speech, and cognition limiting pt's safe/in dependent ADL/IADL performance this date. Exam findings include impairments in: attention, balance, cognitive impairments, coordination, edema, endurance, motor function, muscle performance, pain, posture, sensation, strength, transfers, vision. These impairments contribute to occupational performance limitations including bathing, dressing, grooming, functional mobility, toileting, ADL transfers, leisure integration, community integration, home management tasks, shopping/errands, driving/transportation. 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 Psychosocial Factors Positive indicators for performance: (N/A) Possible barriers for performance: Lack of support system, Not active or linked with community programs, Difficulty coping with changes, Difficulty with interpersonal relationships Patient will benefit from skilled occupational therapy to address these impairments, occupational performance limitations, and participation restrictions. Patient's rehab potential is: fair. Planned Therapy Interventions (OT Eval): ADL retraining, balance training, bed mobility training, cognitive training, edema management, fine motor coordination training, functional activity tolerance, joint mobilization, motor coordination training, neuromuscular re-education, strengthening, transfer training, other (see comments) (Vision.) Patient Instruction/Education this session: Learners: Patient Education provided: Balance training, Bed mobility, Discharge recommendations, Plan of care, Positioning, Role of this discipline, Safety, Activity outside of therapy, Neuromuscular re-education Teaching method: Verbal Education/Instruction Learner response: Needs review Learning preferences: Auditory, Visual Learning considerations: Cognition, Other (see comment) (Language.) Stroke education: Role of rehabilitation discipline, Recovery process Plan for next session: Therapist to address further seated EOB balance, right visual attention, andADL engagement. Acute OT Goals Plan of Care by Yahaira Alcocer OT at 10/17/2024 7:58 AM Version 1 of 1 Problem: OT - ADLs Goal: Grooming - Patient will complete grooming edge of bed with standby assistance for improved ability to safely complete ADLs. Outcome: Ongoing Problem: OT - Transfers Goal: Transfers Supine -> Sit - Patient will perform supine to/from sit with flat bed & no rail and moderate assistance to improve participation in ADLs. Outcome: Ongoing Problem: OT - Balance Goal: Balance - Seated - Patient will perform 8-10 minutes of functional task in sitting with standby assistance and good balance to promote safety during self- care activities. Outcome: Ongoing Problem: OT - Strength/ROM Goal: Neuro Re-education - Patient will participate in neuro re-ed of right upper extremity with independence and 80% accuracy for improved functional use in ADLs. Outcome: Ongoing Problem: OT - Cognition Goal: Cognition Simple ADL - Patient will demonstrate improved cognition, completing simple ADL task for 8-10 minutes with no greater than min cues required to maintain attention. Outcome: Ongoing Problem: OT - Vision Goal: Visual Tracking - Patient will track past midline to right during session with no greater than min cues to attend to familiar object/person for ADL participation in 4/5 trials. Outcome: Ongoing OT treatment consisted of the following to work and progress towards the above goal(s): OT Evaluation and Treatment Time OT Evaluation (High) Time Entry: 16 Evaluating Therapist: Yahaira Alcocer OT Additional Details: OT Co-Eval/Treatment Information Co-evaluation/co-treatment performed?: Yes, simultaneous billable skilled care was necessary due tomedical complexity and functional deficits Other discipline: PT Rationale for need to co-eval/treat: postural control, cognition, coordination OT Evaluation Complexity Occupational Profile and Client History: High - extensive history Assessment of Occupational Performance: High (5 or more performance deficits) Clinical Decision/Performance Deficits: High (comprehensive assessments w/multiple treatment options) Time In: 075 Time Out: 08 Total Visit Time: 16 minutes Total Treatment Time (skilled, billable minutes): 16 minutes PPE used during patient interaction: gloves Patient location at end of session: bed with head of bed elevated Alarms on at end of session: RN aware, bed alarm Needs in reach. Upon discontinuation of Acute Care Occupational Therapy Services or patient discharge from the hospital this note represents the current Occupational Therapy Discharge Summary. * Isabel Otto, PT - 10/17/2024 7:57 AM EDT Acute Physical Therapy Evaluation Prior Gross Functional Mobility: independent Current AM-PAC score(s): CURRENT AM-PAC Mobility Raw Score: 6 Based on the above AM-PAC score(s) and PT clinical judgment, patient is a good candidate for discharge to Nursing Home Facility Barriers to discharge home: Patient needs assistance with functional mobility Mobility equipment available at home: manual wheelchair, front-wheeled walker, straight cane ADL equipment available at home: shower chair, grab bars Equipment needed for discharge: to be determined Current therapy frequency recommendation in acute: PT Therapy Frequency: 5 times a week Activity Recommendations for outside of rehab session: shira lift Precautions and Weightbearing Status: Existing Precautions/Restrictions: fall Telemetry, Arterial line Patient Safety Communication Prior to Visit: Nursing Current brace/orthoses: (Right LE ex-fix.) Right Lower Extremity : non-weight bearing Subjective: Pt cooperative with PT Pain: General Pain Documentation (Adult, OB, Peds) Presence of Pain: not present: non-verbal indicator of pain/discomfort Presence of Pain Score (Auto-calculated): 0 Home Setting Residence: House (One-level home.) Lives With: alone Patient receives help from : none Patient reported support for discharge planning: none First floor setup: bedroom, tub shower, grab bars Number of stairs to enter home: 0 Number of stairs in home: 0 Mobility Equipment Available: manual wheelchair, front-wheeled walker, straight cane ADL Equipment Available: shower chair, grab bars Home Environment Details: Unable to ensure accuracy of Occupational Profile information collected via pt this date due to current deficits in cognition/mentation/language. 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 Vocation: retired Objective/Observation: Vitals/Vitals Responses to Treatment: no adverse response to PT Cognition Overall Cognitive Status: Impaired Arousal/Alertness: Delayed responses to stimuli Orientation Level: Oriented to person (identified month with choices but initially reported "1st or2nd" when asked month.) Following Commands: Follows one step commands with repetition, Follows one step commands with increased time Safety Judgment: Decreased awareness of need for safety, Decreased awareness of need for assistance Awareness of Errors: Decreased awareness of errors Deficits: Decreased awareness of deficits Vision Screen Currently wearing corrective lenses: No Speech Speech: word-finding difficulties Hearing Hearing: no gross deficits noted Extremity Assessments: RLE Assessment Right LE Assessment Details: formal MMT difficult but pt demonstrated gorssly 2/5 proximial strength at hip witih spontaneous movement in bed. Ex-fix at ankle. LLE Assessment Left LE Assessment Details: formal MMT difficult: pt demonstrated grossly at least 2-3/5 Mobility Assessment: Supine to Sit Mobility [place] Level: Supine->Sit: maximum assist (25% patient effort) Physical Assist: Supine->Sit: 2 person assist Bed Features/Set-up: Supine->Sit: Head of bed elevated Skilled Rationale: Verbal cues, Tactile cues, Hand placement, Technique of activity Sit to Supine Mobility [place] Level: Sit->Supine: maximum assist (25% patient effort) Physical Assist: Sit->Supine: 2 person assist Bed Features/Set-up: Sit->Supine: Head of bed elevated Skilled Rationale: Verbal cues, Tactile cues, Hand placement, Technique of activity Balance: Sitting Balance Static Sitting-Level of Assistance: Maximum assistance Skilled Rationale: Verbal cues, Tactile cues, Hand placement, Full extension to upright positioning/posture, Technique of activity Sitting Balance Skilled Intervention/Details: retropulsive in sitting Outcome Score(s): CURRENT [facility] Basic Mobility Inpatient Short Form Turning over in bed: 1 - Total Assistance Moving from lying on back to sittin - Total Assistance Moving to and from bed to chair: 1 - Total Assistance Sitting/standing from chair: 1 - Total Assistance Walk in hospital room: 1 - Total Assistance Climbing 3-5 steps with a railin - Total Assistance CURRENT [facility] Mobility Raw Score: 6 CURRENT [facility] Mobility Functional Limitation: 100.00% Impaired in Basic Mobility Assessment & Plan: Patient was admitted for "Acute Left MEASUREMENT PSYCHOLOGIST CVA " (per chart review) and seen for therapy evaluation related to mobility concerns. Exam findings include impairments in: Strength, Balance, Posture, Transfers, Gait/Locomotion, Pain,Aerobic capacity/endurance, Cognition/Arousal/Attention. These impairments contribute to functionallimitations including Difficulty with transfers, Difficulty with bed mobility, Decreased functionalmobility. Current clinical presentation is Unstable - unstable and unpredictable characteristics - safety risk (High). Patient history factors impacting Plan Of Care include . Patient will benefit from skilledphysical therapy to address these impairments, functional limitations, and participation restrictions and has good rehab potential to achieve therapy goals. Planned Therapy Interventions: balance training, bed mobility training, endurance, functional activity tolerance, gait training, neuromuscular re- education, strengthening, transfer training Patient Instruction/Education this session: Learners: Patient Education provided: Plan of care Teaching method: Verbal Education/Instruction Learner response: Needs review Learning considerations: Cognition Stroke education: Role of rehabilitation discipline Plan for next session: progress transfers, sitting balance Acute PT Goals Plan of Care by Isabel Otto PT at 10/17/2024 3:20 PM Version 1 of 1 Problem: PT - General Goals Goal: Supine <-> Sit Transfers - Patient will perform supine to/from sit transfers with moderate assistance and of 2 people and with use of hospital bed features in order to improve functional mobility and safety. Outcome: Ongoing Goal: Sitting Endurance/Balance - Patient will perform seated balance tasks for 8 minutes with minimal assistance and bilateral UE support while maintaining trunk in midline Outcome: Ongoing Goal: Sit <-> Stand Transfers - Patient will perform sit to/from stand transfers with maximalassistance and of 2 people NWB RLE in order to improve functional mobility and safety. Outcome: Ongoing Goal: Stand/Squat Pivot Transfers - Patient will perform stand pivot transfer to/from bed/chair/commode with maximal assistance and of 2 people NWB RLE in order to improve functional mobility and safety. Outcome: Ongoing PT treatment consisted of the following to progress towards the above goal(s): PT Evaluation and Treatment Time PT Evaluation (High) Time Entry: 15 Evaluating Therapist: Isabel Otto PT Additional Details: PT Co-Eval/Treatment Information Co-evaluation/co-treatment performed?: Yes, simultaneous billable skilled care was necessary due tomedical complexity and functional deficits Other discipline: OT Rationale for need to co-eval/treat: postural control Co-treatment goal focus: balance, mobility, transfer Evaluation Complexity Components History: High (3 personal factors and/or comorbidities) Body Systems Review: High (Addressing a total of 4 or more elements) Clinical Presentation: Unstable - unstable and unpredictable characteristics - safety risk (High) Clinical Decision Making Complexity: High Time In: 0757 Time Out: 0812 Total Visit Time: 15 minutes Total Treatment Time (skilled, billable minutes): 15 minutes PPE used during patient interaction: gloves Patient location at end of session: bed with head of bed elevated Alarms on at end of session: RN aware Needs in reach. Upon discontinuation of Acute Care Physical Therapy Services or patient discharge from the hospitalthis note represents the current Physical Therapy Discharge Summary. * Tony Deleon MD - 10/17/2024 6:16 AM EDT NEUROSURGERY PROGRESS NOTE: 10/17/24 S: hemorrhagic stroke vs underlying lesion O: PE: AxOx1 (person, not to place or time) Encephalopathic; confused PERRLA; tracking appropriately Face symmetric Fcx4 Full strength and AG throughout except L DF/PF in RLE Ex Fix in place + HAIDER wrap in RLE Temp: [97.3 F (36.3 C)-97.7 F (36.5 C)] 97.7 F (36.5 C) Pulse (Heart Rate): [63-124] 63 Resp Rate: [19-35] 24 BP: (127-190)/(70-91) 170/78 O2 Sat (%): [90 %-98 %] 96 % Weight: [163 kg (359 lb 5.6 oz)-172 kg (379 lb 3.1 oz)] 163 kg (359 lb 5.6 oz) O2 Sat (%): 96 % (10/17 599) O2 Device: nasal cannula (10/18 399) Flow (L/min): 4 (10/18 399) No intake/output data recorded. ICP: No data recorded WBC/Hgb/Hct/Plts: 12.56/12.6/37.0/272 (10/16 2257) Na/K+/Phos/Mg/Ca: 136/3.8/3.0/1.6/-- (10/16 2257) Bun/Creat/Cl/CO2/Glucose: 9/0.50/97/29/223 (10/16 2257) Ptt/Pt/Inr: 33.6/14.5/1.1 (10/16 2044) Imaging: moderate multifocal left temporo-occipital parenchymal hemorrhage. Associated white matter hypoattenuation, with multifocal loss of duffy-white differentiation, predominantly localizing to the left MEASUREMENT PSYCHOLOGIST territory. This is associated with overlying sulcal effacement and mild generalized mass effect contributing to partial effacement of left lateral ventricle. There is trace intraventricular hemorrhage within the bilateral occipital horns. There is no significant midline shift. No herniation or hydrocephalus. A/P: Lani Zaragoza is a 69 y.o. male w/ a history of diabetes, afib on eliquis, HTN, HLD, PVD, and TODD who was admitted to OSH for debridement of right diabetic foot ulcer on 10/09. Noted to have mental status change 10/[address] head revealed left temporal hemorrhage. Neuro: neuro checks Q1H + vitals - MRI brain w/wo - hemorrhagic stroke care per neurovascular - goal SBP<140, INR<1.4, Platelets >100k - hold all antiplatelet agents and anticoagulation - admission to [facility] Cards: SBP<140 Resp: 4 L NC ID: afebrile, leukocytosis of 12.56 FEN/GI: DIET NPO with meds PPX: SCDs, Pharm DVT ppx (hold) Dispo: Pending clinical advancement; [facility] primary Please page [phone]) with questions. Principal Problem: Ischemic cerebrovascular accident (CVA) Active Problems: ICH (intracerebral hemorrhage) Present on Admission: Ischemic cerebrovascular accident (CVA) ICH (intracerebral hemorrhage) Complexity. Obesity, Class III Body mass index is 53.07 kg/m . - Follow with PCP for dietary and lifestyle modifications. Wound Documentation Any conditions listed below are present on admission unless otherwise specified. . * Lawrence Ro RPH - 10/17/2024 5:09 AM EDT Department of Pharmacy Pharmacokinetics Progress Note Patient: Lani Zaragoza Room/Bed: 1040/A Assessment and Plan: Based upon drug level assessment and interpretation (steady state), I recommend changing vancomycindose and/or dosing interval to Vancomycin 1,250 mg IV every 12 hours to start at 6 am on 10/17/24. A pharmacist will continue to follow and order drug levels and adjust dosing as clinically appropriate. I have contacted Olivier Kaufman [facility] and received a verbal order to adjust applicable orders in I HIS as indicated above. Vancomycin regimen at time of level: Vancomycin 1,500 mg IV every 12 hours (Initiated on 10/09/24 at OSH) Last Dose Administered: Dose: Date: Time: 1,500 mg 10/16/24 16:00 Levels: 21.5 mcg/mL drawn at 03:51 on 10/17/24. Level was a trough. Most Recent Labs: WBC Count Date Value Ref Range Status 10/16/2024 12.56 (H) 3.73 - 10.10 K/uL Final BUN Date Value Ref Range Status 10/16/2024 9 7 - 25 mg/dL Final Creatinine Date Value Ref Range Status 10/16/2024 0.50 (L) 0.70 - 1.30 mg/dL Final No intake/output data recorded. Estimated Creatinine Clearance: 209 mL/min (A) (by C-G formula based on SCr of 0.5 mg/dL (L)). Ongoing Vancomycin Monitoring: The following trough goal is recommended for ongoing therapy based on the suspected/confirmed source of infection and today s calculations: Goal trough range: 15-20 mcg/mL If therapy is to be continued after discharge, please contact pharmacy for appropriate dosing. Please feel free to contact me with any further questions. Name: Lawrence Ro [facility] Phone: [phone] Date/Time: 10/17/2024 5:09 AM * Eboni Jackson [facility] - 10/16/2024 8:53 PM EDT Department of Pharmacy Emergency Department Stroke Alert Response Note Patient Name: Lani Zaragoza Room/Bed: E040/E040 A Pharmacist responded to the stroke alert. The patient was determined to be having a hemorrhagic stroke. The IHIS order set "ED: Confirmed Stroke/ICH - Secondary" was placed by Dr. Denson for ongoing care. Pertinent medications received prior to arrival: nicardipine gtt (off now d/t normalized pressures). The patient is on eliquis at home, but has not received since 10/09 due to procedures, NOT on any antiplatelet medications. After discussion with neurology, SBP goal is to be between 120 and 140 mmHg. SBP is currently at goal and no interventions were required. Verified orders for PRN anti-hypertensives with correct bloodpressure goal (SBP 120-140 mmHg) have been ordered for ongoing care.. Please feel free to contact me with any further questions. Name: Eboni Jackson RP Phone: [phone] Date/Time: 10/16/2024 8:53 PM * Eboni Jackson [facility] - 10/16/2024 8:50 PM EDT Department of Pharmacy Outside Facility Transfer Note Patient: Lani Zaragoza Room/Bed: E040/E040 Patient has transferred from the Emergency Department at [place] . I have contacted the facility and confirmed the following antimicrobial, antiepileptic, and anticoagulant medications were received by the patient prior to arrival at [facility]: Medications received: Both antibiotics initiated on 10/09 Meropenem 1 g IV Q8H, last 10/16 @ 1400 Vancomycin 1500 mg Q12H, last 10/16 @ 1600 (of note, patient had vanc trough on 10/15 @ 0321 which resulted as 21.7 mcg/mL, during that time patient was continued on same regimen of 1500 mg q12 given trending improvement of renal function. Will recheck here.) Per OSH documentation, patient set up with [facility] for the above antibiotics x6 wks (EOT 11/22/24), withID follow up in 2 weeks and weekly labs. Confirmed with ZEN Loera at OSH, patient has NOT received any eliquis, other anticoagulant or antiplatelet, last reported eliquis was 10/09 due to surgeries Please feel free to contact me with any further questions. Name: Eboni Jackson [facility] Phone #: [phone] Date/Time: 10/16/2024 8:50 PM documented in this encounterUniversity [facility] Consult note* Jacqueline Wiggins RN - 10/22/2024 3:18 PM EDT Images from the original note were not included. Diabetes Education Consult Follow-up Note: Pt was seen today at bedside as a follow-up to review and reinforce previous DM self-management education. Pt was resting in bed, alert and oriented x 3, zero s/sx of acute distress noted at the timeof this encounter. Bedside nursing staff to reinforce Diabetes Education: [x]Practicing checking glucoses Testing your blood sugar video [x]Practicing and teachback of insulin injection How to use insulin pen video [x]Carb control/portion control reinforcement Carbohydrates and Blood Sugar video Diabetes Education Resources: Link to diabetes education book in Iraqi: DiabetesEducation.pdf Link to diabetes education book in Burundian: DiabetesEducation_SP.pdf Diabetes videos: https://www.[employer].net/osumychart/Content/StdDocument.aspx?KZBJOYL=sgvbop720 0 Link to order the diabetes education books (you would login and select your location, select the disease, diabetes and then you will see the option to order the book): [email or web address]/ [email or web address]/Identity/Account/Login?ReturnUrl=/[email or web address] Education Reviewed: [x]Regimen at discharge [x]Self-insulin injection techniques, timing [x]Nutrition review []Carb counting []Premixed insulin use: roll, don't shake, timing of administration []Exercise review Patient capable of self monitoring of blood glucose [x]YES []NO, needs further education Patient capable of self injection of insulin [x]YES []NO, needs further education Patient capable of following discharge regimen for homegoing [x]YES []NO Thank you for allowing me to care for this patient, will sign off at this time. Please contact me if additional concerns arise. Thank you, Jacqueline Wiggins SUPERVISOR NEWSPAPER DELIVERIES-COACH DRIVER Ball Rolling Machine Operator- Endocrinology, Diabetes & Metabolism * Jacqueline Wiggins RN - 10/18/2024 2:41 PM EDT Images from the original note were not included. DIABETES EDUCATION CONSULT Lani Zaragoza is a 69 y.o. male admitted 10/16/2024. Consult received for diabetes education. Met with pt to review DM learning needs, barriers, and self management plan. Pt was resting in bed quietly, awake, alert and oriented x 3, zero s/sx of acute distress noted at the time of this encounter. Pt's adults children were present at his bedside for support at the time of this encounter. Bedside nursing staff to reinforce Diabetes Education: [x]Practicing checking glucoses Testing your blood sugar video [x]Practicing and teachback of insulin injection How to use insulin pen video [x]Carb control/portion control reinforcement Carbohydrates and Blood Sugar video Diabetes Education Resources: Link to diabetes education book in Iraqi: DiabetesEducation.pdf Link to diabetes education book in Burundian: DiabetesEducation_SP.pdf Diabetes videos: https://www.[employer].net/osumychart/Content/StdDocument.aspx?DARQJWR=qoqusw272 0 Link to order the diabetes education books (you would login and select your location, select the disease, diabetes and then you will see the option to order the book): [email or web address].[email or web address]/clinical/ pteducordering/Identity/Account/Login?ReturnUrl=/[email or web address] DM History: Type of Diabetes: Type 2 Diabetes Mellitus (T2DM) Date of diagnosis: 15 yrs ago. Outpatient physician: Pcp. Last Seen: 2 months ago Diabetes Complications: peripheral neuropathy Home blood glucoses: Checking blood sugars about 3-4 times per day. Type of glucometer/strips: Dexcom Usual results are 200s-400 Home diabetes medications: see med rec Intervention: (Diabetes Education): [x]Diabetes Education booklet provided to patient [x]Pathophysiology of Type 1 or 2 Diabetes [x]Target glucose range and target A1c [x]Self monitoring of glucose [x]Self administration of insulin [x]Nutrition modification/ plate method [x]Benefits of exercise [x]How to assess and treat hypoglycemia [x]How to assess and treat hyperglycemia [x]Sick day rules http://www.[employer]ov[employer].org/wp-content/uploads//KFXL-KQR-Offq-I nnovative-Therapeutics.pdf [x]Who to contact in an emergency [x]DKA prevention and symptoms Goals: Pt's goals for better outcomes: zero goal set at the time of this encounter I recommend Carb/portion controlled diet Diabetes Supplies: Denied difficulties obtaining medication and supplies. - Glucose monitoring supplies for ACHS: Glucose test strips: dispense 150 with 1 refill - Patient has Dexcom brand, Lancets: dispense 150 with 1 refill, and alcohol swabs: dispense 200 with 1 refill - The patient will need script for new glucometer: no: Patient prefersDexcom brand or substitute brand covered by insurance Insulin: New to insulin []YES [x]NO New to meal time insulin [x]YES []NO Insulin teaching done including site rotation, how to administer insulin [x]YES []NO Return demonstration []YES [x]NO Follow Up: [x]Per inpatient diabetes team note []Follow up with outpatient Diabetes Education Classes [x]Follow up with PCP Evaluation: Pt seen at his bedside today; we were able to complete DM education: Self monitoring blood sugar (SMBG) discussed and pt provided teach back . We discussed before mealsand bedtime, we also reviewed how to use BG levels to dose insulin before meals at home. How to self administer insulin.. The plan is to reinforce this education consistent with each dose of insulin required to increase patient's confidence to self inject. Continue to reinforce self- management. Follow-up needed to reinforce this DM self-management education Thank you, Jacqueline Wiggins APRN-[facility] Ball Rolling Machine Operator- Endocrinology, Diabetes & Metabolism * Annika Sanders DPM - 10/17/2024 4:18 PM EDTAssociated Order(s): IP CONSULT TO PODIATRY Images from the original note were not included. Podiatric Surgery Consult Note REASON FOR CONSULTATION: Hx RLE osteomyelitis s/p debridement at OSH HISTORY OF PRESENT ILLNESS: Lani Zaragoza is a 69 y.o. male has no past medical history on file. Patient presents to [facility] for confusion and aphasia with workup showing left temporal hemorrhage. Patient was consulted by the podiatry service for evaluation of limb salvage procedure completed at OSH. Outside records unavailable at this time. 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 Was instructed the ex fix would stay on for 6 weeks while the wound heals. He was discharge to SNF 10/16, became confused with stroke alert called and subsequent transfer to [facility]. Surgical Status: s/p Antibiotics Received Lab Results Component Value Date HGBA1C 10.5 (H) 10/16/2024 No past medical history on file. No past surgical history on file. Allergies Allergen Reactions Penicillins Reaction unknown patient's sister reports that the patient has an allergy to penicillins. She was unable to rememberthe exact reaction but reports that it "was pretty severe". Patient's son unsure of any medication allergies. [facility] does not have any allergies on file for the patient and notably the patient has filled Augmentin twice in the past month (09/12/24 and 10/14/24) MEDS: amLODIPine 5 mg Oral Daily carveDILOL 6.25 mg Oral Q12H fentaNYL Citrate (PF) Gabapentin 400 mg Oral TID hydrALAZINE 25 mg Oral Q8H insulin glargine 16 Units Subcutaneous Q24H Insulin regular Subcutaneous Q6H meropenem 1 g Intravenous Q8HNS vancomycin 1,250 mg Intravenous Q12HNS PRN MEDS: Calcium Gluconate OR calcium gluconate, Insulin regular AND BLOOD GLUCOSE (POC DEVICE) AND BLOOD GLUCOSE (POC DEVICE) AND COMMUNICATION ORDER FOR NURSING CARE: For Blood Glucose LESS THAN 80 mg/dl AND Dextrose AND glucose AND NOTIFY PHYSICIAN, Blood Glucose LESS THAN 80 mg/dl, fentaNYL Citrate (PF), hydrALAZINE OR hydrALAZINE, Ipratropium-albuterol, Labetalol OR Labetalol, magnesium sulfate, potassium chloride OR Potassium chloride OR Potassium Bicarb-Citric Acid OR potassium chloride, Sodium chloride 0.9%, sodium phosphate OR sodium phosphate Social History Socioeconomic History Marital status: Spouse name: Not on file Number of children: Not on file Years of education: Not on file Highest education level: Not on file Occupational History Not on file Tobacco Use Smoking status: Not on file Smokeless tobacco: Not on file Substance and Sexual Activity Alcohol use: Not on file Drug use: Not on file Sexual activity: Not on file Other Topics Concern Not on file Social History Narrative Not on file Social Drivers of Health Financial Resource Strain: Not on file Food Insecurity: No Food Insecurity (10/17/2024) NCSS - Food Insecurity Worried About Running Out of Food in the Last Year: No Ran Out of Food in the Last Year: No Transportation Needs: No Transportation Needs (10/17/2024) NCSS - Transportation Lack of Transportation: No Physical Activity: Not on file Stress: Not on file Social Connections: Not on file Personal Safety: Patient Unable To Answer (10/17/2024) NCSS - Interpersonal Safety Feels Physically and Emotionally Safe: Patient unable to answer Physically Hurt by Someone: Patient unable to answer Humiliated or Emotionally Abused by Someone: Patient unable to answer Housing Stability: Not At Risk (10/17/2024) NCSS - Housing/Utilities Has Housing: Yes Worried About Losing Housing: No Unable to Get Utilities: No No family history on file. Physical Exam Vitals: 10/17/24 1400 10/17/24 1425 10/17/24 1500 10/17/24 1520 BP: Pulse: 70 72 71 Resp: 23 17 19 Temp: 99 degrees F (37.2 degrees C) TempSrc: Axillary SpO2: 97% 97% 97% Weight: Height: General appearance: cooperative, appears stated age Lower extremity exam: Skin: External fixator to right LE. Large surgical wound to posterior heel with mixed granular and fibrotic tissue present. No crepitus, drainage or malodor. Musculoskeletal: Unable to assess Neurological: Sensation grossly bilaterally Vascular: DP and PT pulses palpable bilaterally. Cap refill < 3 sec b/l. There is no increased warmth noted to the right foot. There is moderate edema present to the right lower extremity. Laboratory Results WBC/Hgb/Hct/Plts: 12.56/12.6/37.0/272 (10/16 2257) Bun/Creat/Cl/CO2/Glucose: 12/0.46/100/27/252 (10/17 1305) Na/K+/Phos/Mg/Ca: 138/4.3/3.0/1.6/-- (10/16 2257-10/17 1305) No results found for: "SEDRATE" No results found for: "CRP" Lab Results Component Value Date HGBA1C 10.5 (H) 10/16/2024 Imaging Review XR CHEST 1 VIEW PORTABLE Final Result IMPRESSION: Pulmonary edema is stable to worse compared to prior. I personally viewed and interpreted these images and I have reviewed and approved this report. CARDIOGRAM Final Result CT HEAD WITHOUT CONTRAST Final Result IMPRESSION: Mild increased edema surrounding the hemorrhage with 3 mm of rightward midline shift. Examination is otherwise not significant changed. CHEST 1 VIEW PORTABLE Final Result IMPRESSION: See above ANGIO BRAIN/NECK Final Result IMPRESSION: \\ 1. Examination is equivocal for mid/distal left posterior cerebral artery occlusion (5/144). Artifact from venous contamination and vessel tortuosity limits characterization, and this may reflect vessel bifurcation. As such, presence of infarct with hemorrhagic conversion is not definitive, and underlying mass would be difficult to exclude on the basis of CT alone. MRI with and without contrast is advised to aid characterization, to include MR angiography to more convincingly assess patency of the left posterior cerebral artery. I, Catherine Cornejo MD have discussed the critical finding/s of possible left MEASUREMENT PSYCHOLOGIST occlusion with Kristen Ramon MD on 10/16/2024 8:57 PM. I personally viewed and interpreted these images and I have reviewed and approved this report. STROKE HEAD-STROKE ALERT ONLY Final Result IMPRESSION: 1. 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 2. Trace interventricular hemorrhage. 3. Localized mass effect without significant midline shift, herniation, hydrocephalus. Pulmonary results were discussed with Kristen Ramon MD at 8:57 PM on October 16, 2024. I personally viewed and interpreted these images and I have reviewed and approved this report. BRAIN WITH AND WITHOUT CONTRAST (Results Pending) MRI ANGIO NECK WITH AND WITHOUT CONTRAST (Results Pending) MRI ARTERIOGRAM BRAIN WITHOUT CONTRAST (Results Pending) Cultures NA Assessment: OM of right calcaneus s/p wound debridement with ex fix application Recommendations: Patient and family member seen at bedside Right LE dressing removed and surgical site examined. External fixator intact with surgical wound to posterior heel with mixed fibrotic and granular tissue present. No acute signs of infection. Will defer surgical management to performing surgeon. Will continue to monitor wound for signs of acute infection during admission. Recommend obtaining right foot XR while outside records are obtained. Wound Care: Continue local wound care with sterile saline rinses every other day, followed by silver alginate (silvercel, aquacel Ag etc...) application and a dry sterile dressing. Please continue pin care with light betadine soaked gauze applied daily. (Nursing order placed.) Antibiotics: per ID/primary Consults: none at this time Imaging: R foot XR Weight bearing Status: NWB RLE The above was discussed with the Podiatry Surgery Attending Dr. Escoto. Thank you for this consult, please page the podiatry resident workplace rehabilitation officer with questions. Cosigned by Nakul Escoto DPM at 10/17/2024 6:22 PM EDT * Toni Greene, - 10/17/2024 3:16 PM EDTAssociated Order(s): IP CONSULT TO INFECTIOUS DISEASE INFECTIOUS DISEASE CONSULTATION REQUESTING PHYSICIAN: Dillan Guzman MD REASON FOR CONSULTATION: follow-up with davidririchardum from previous hospital CC: HISTORY OF PRESENT ILLNESS: Pt is a 69 y.o. male with PMHx of A-fib on Eliquis and DM (uncontrolled), was being treated an an OSH ([facility]) for a right heel wound infection with associated osteomyelitis and for which he underwent surgical debridement by podiatry on 10/15 with placement of an external fixator. Operative cultures are polymicrobial and patient was also found to have MRSE bacteremia (2 of 2 bottles). The patient was receiving IV Vancomycin and Meropenem at the OSH. The post-op course was complicated by an acute hemorrhagic stroke that prompted transfer to [facility]. Patient currently on BiPAP and appears hemodynamically stable. Currently in IV Vancomycin and Meropenemhere at [facility]. Repeat blood cultures are pending. ID consultation has been requested by the primary service to provide recommendations on the management of the patient's blood and foot infection. REVIEW OF SYSTEMS: Unable to obtain accurate ROS as patient on BiPAP and only able to nod. PAST MEDICAL HISTORY: A-Fib Diabetes mellitus with peripheral neuropathy HTN Hyperlipidemia Venous insufficiency PVD PAST SURGICAL HISTORY: Right foot debridement and external fixator placement Left small toe amputation FAMILY HISTORY: No family history on file. SOCIAL/EXPOSURE HISTORY: Social History Socioeconomic History Marital status: ALLERGIES: Allergies Allergen Reactions Penicillins Reaction unknown patient's sister reports that the patient has an allergy to penicillins. She was unable to rememberthe exact reaction but reports that it "was pretty severe". Patient's son unsure of any medication allergies. [facility] does not have any allergies on file for the patient and notably the patient has filled Augmentin twice in the past month (09/12/24 and 10/14/24) MEDICATIONS: amLODIPine 5 mg Oral Daily carveDILOL 6.25 mg Oral Q12H fentaNYL Citrate (PF) Gabapentin 400 mg Oral TID hydrALAZINE 25 mg Oral Q8H insulin glargine 16 Units Subcutaneous Q24H Insulin regular Subcutaneous Q6H meropenem 1 g Intravenous Q8HNS vancomycin 1,250 mg Intravenous Q12HNS niCARdipine 15 mg/hr (10/17/24 1312) Sodium chloride 0.9% 1 mL/hr at 10/17/24 1200 Sodium chloride 0.9% 50 mL/hr at 10/17/24 1200 PHYSICAL EXAM: Vitals: BP 170/78 Pulse 71 Temp 98 F (36.7 C) (Axillary) Resp 19 Ht 1.753 m (5' 9") Wt (!) 163 kg (359 lb 5.6 oz) SpO2 97% BMI 53.07 kg/m Constitutional - Awake, Alert on BiPAP HEENT - Sclera non-icteric, EOMI, pink moist oral mucosa Neck - Supple Heart - Regular, No obvious M/G/R Lungs - Clear to bilateral auscultation Abd - Soft, obese, ND, NT, BS present Ext - Right foot with post-op dressing in place and external fixator. No other joint swelling, warmth, erythema or pain with ROM Skin - No skin rashes Neuro - Unable to accurately assess (see Neurovascular note) LABORATORY: WBC/Hgb/Hct/Plts: 12.56/12.6/37.0/272 (10/16 2257) Bun/Creat/Cl/CO2/Glucose: 12/0.46/100/27/252 (10/17 1306) Na/K+/Phos/Mg/Ca: 138/4.3/3.0/1.6/-- (10/16 2257-10/17 1306) Latest Reference Range & Units 10/16/24 20:45 BILIRUBIN, TOTAL <1.5 mg/dL 0.6 PROTEIN, TOTAL 6.4 - 8.3 g/dL 7.2 Albumin 3.5 - 5.0 g/dL 3.5 ALKALINE PHOSPHATASE 32 - 126 U/L 92 ALT 10 - 52 U/L 13 AST 10 - 39 U/L 14 Troponin High Sensitivity <53 ng/L 6 IMAGIN/30 TTE - IMPRESSION: Technically difficult study. The left ventricular chamber size and systolic function are normal. LVEF 60-65%. Mild concentric LVH. The right ventricular chamber size and systolic function are normal. Bi-atrial enlargement. There is no hemodynamically significant valvular disease. Estimated RVSP 49 mmHg. No right to left shunt with agitated saline. 10/17 CXR - IMPRESSION: Pulmonary edema is stable to worse compared to prior. 10/17 CT-Head - IMPRESSION: Mild increased edema surrounding the hemorrhage with 3 mm of rightward midline shift. Examination is otherwise not significant changed. 10/16 CT-Angio Brain and Neck - IMPRESSION: 1. Examination is equivocal for mid/distal left posterior cerebral artery occlusion (5/144). Artifact from venous contamination and vessel tortuosity limits characterization, and this may reflect vessel bifurcation. As such, presence of infarct with hemorrhagic conversion is not definitive, and underlying mass would be difficult to exclude on the basis of CT alone. MRI with and without contrast is advised to aid characterization, to include MR angiography to more convincingly assess patency of the left posterior cerebral artery. 10/16 CT-Head Stroke Alert - IMPRESSION: 1. 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 2. Trace interventricular hemorrhage. 3. Localized mass effect without significant midline shift, herniation, hydrocephalus. MICROBIOLOGY: 10/17 Blood Cx - Pending 10/17 Blood Cx - Pending OSH Micro (CareEverywhere) 10/14 Wound Cx - Enterococcus faecalis, Strep mitis/oralis, Morganella morganii, Proteus penneri 10/12 Blood Cx - MRSE x 2 ASSESSMENT: Acute osteomyelitis of right calcaneous - S/p operative debridement at OSH with polymicrobial cultures and placement of external fixator MRSE bacteremia at OSH - Repeat blood cultures here pending. TTE done here does not make mention ofvalvular abnormalities Acute hemorrhagic stroke Neutrophilic leukocytosis Uncontrolled DM Reported penicillin allergy - Reported as severe, but unable to confirm. Reported that patient may have filled Amox-Clav in recent past (per review of allergy comments) and possibly tolerated Cephalexin (per OSH ID consult note) Estimated Creatinine Clearance: 227 mL/min (A) (by C-G formula based on SCr of 0.46 mg/dL (L)). RECOMMENDATIONS: Agree with repeating blood cultures Follow any pending cultures from the OSH and update us as necessary Agree with Podiatry consult Agree with IV Vancomycin (goal trough 15 to 20) and Meropenem 1 gram IV every 8 hours at this time (ASP Code: [id number]) Please have pharmacy help with dosing of above antibiotics. These recommendations were also relayed to the primary team. ID Team 5 will continue to follow. Please call with questions. 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 0.5 on admission A1c: 10.5% Risk: HTN, HLD, PVD, TODD Plan Hospital Plan: Basal: Glargine insulin 16 unit(s) q24h Correction: Regular insulin 2 unit(s) per every 50 mg/dL above 150 mg/dL q6h We will review glucoses; however, primary team should continue to check blood glucoses daily and reach out to our service with urgent issues DIABETES DISCHARGE PLAN Please contact our team on day of discharge for definitive recs. QGENDA :TEAM 2 Tentative discharge plan: Please reach out to Diabetes Consult Team for definitive recommendations closer to discharge Follow up needed: PCP after discharge from facility Diabetes consult: Lani Zaragoza is a 69 y.o. male being seen for diabetes management consult at [facility] of the [facility] Service, Dr Guzman for Type 2 Diabetes Mellitus, uncontrolled. HPI: Patient was admitted at an outside hospital for management of a chronic foot wound and was planningon discharging to SNF on 10/16. Stroke code was called and imaging showed hemorrhagic stroke. Sent to [facility] for further management; admitted to [facility]. Remains NPO. Reason for Endocrinology-Diabetes Consult: Glucose regulation Current inpatient diabetes medications at time of initial consult: Regular insulin q6h 2 unit(s) per every 50 mg/dL above 150 mg/dL qachs Diabetes History: Type of Diabetes: Type 2 Diabetes Mellitus (T2DM) Date of diagnosis: one year ago Outpatient physician: PCP Diabetes Complications: peripheral neuropathy Date of most recent dilated eye exam: unknown DKA occurrences: unknown Home blood glucose monitor: Dexcom Prior Regimens/medications: Unknown Home diabetes medications: Basal: Toujeo (pt refers this although no recent fill history. Unsure of dose) Prandial: None Correction: None Non-insulin Injectables: none Orals: metformin BP Medication(s): carvedilol, amlodipine, and hydralazine Cholesterol Medication: none Home diet/meal plan: Unknown Hemoglobin A1c this admission: Lab Results Component Value Date HGBA1C 10.5 (H) 10/16/2024 Inpatient Glucoses: Date Daily glucose review TDD Basal Prandial/ Correction 10/16/2024 240, 224, 223, 219, 236 8 0 8 10/17/2024 244, 252 --- --- 4 Diet: Current Diet Orders Procedures DIET NPO with meds Patient to remain NPO until passes Bedside Swallow Screen. Standing Status: Standing Number of Occurrences: 1 NPO Meds:: with meds PMH: He has no past medical history on file. SOCIAL HISTORY FAMILY HISTORY Refers family history of diabetes. REVIEW OF SYSTEMS Eyes: Negative for double vision, blurring, tearing, loss of vision Gastrointestinal: Negative for abdominal pain, nausea, vomiting Neurological: Positive for neuropathic pain. Negative for headache, dizziness Endocrine: Negative for dry mouth or polydipsia, polyphagia, polyuria PHYSICAL EXAM General/Constitutional: male, who looks his stated age of 69 y.o.. No acute distress. Vital Signs: BP 170/78 Pulse 71 Temp 99 F (37.2 C) (Axillary) Resp 19 Ht 1.753 m (5' 9") Wt (!) 163 kg (359 lb 5.6 oz) SpO2 97% BMI 53.07 kg/m , Wt Readings from Last 2 Encounters: 10/16/24 (!) 163 kg (359 lb 5.6 oz) , Body mass index is 53.07 kg/m . O2 Sat (%): [90 %-98 %] 97 % O2 Device: Nocturnal CPAP/BIPAP Flow (L/min): [3-4] 4 Oxygen Concentration (%): [40] 40 Respiratory Rate - set (bpm): [10] 10 Total Respiratory Rate (bpm): [18] 18 Respiratory Rate - set (bpm): [10] 10 Head: Normocephalic and atraumatic. Eyes: Sclerae and conjunctiva are clear. . Pulmonary/Chest: Mildly increased respiratory effort. Abdominal: Non-distended. Soft, non-tender. Extremities: Discoloration/chronic appearance over bilateral LE. Right foot wrapped Neurological: Conscious, alert. Only oriented to person Psychiatric: Appropriate mood and affect for his clinical situation. LABS Lab Results Component Value Date HGBA1C 10.5 (H) 10/16/2024 Lab Results Component Value Date CHOLESTEROL 165 10/16/2024 TRIG 113 10/16/2024 HDL 37 (L) 10/16/2024 LDLCALC 105 (H) 10/16/2024 Creatinine Date Value Ref Range Status 10/17/2024 0.46 (L) 0.70 - 1.30 mg/dL Final No results found for: "MICROALBUMIN", "MICROALBUPOC" Lab Results Component Value Date ALT 13 10/16/2024 AST 14 10/16/2024 No results found for: "TSH", "C5PLVQE", "T4FREE" Cardiac echo: EF = Results for orders placed during the hospital encounter of 10/16/24 ECHOCARDIOGRAM 10/17/2024 (Final) Interpretation Summary Technically difficult study. The left ventricular chamber size and systolic function are normal. LVEF 60-65%. Mild concentric LVH. The right ventricular chamber size and systolic function are normal. Bi-atrial enlargement. There is no hemodynamically significant valvular disease. Estimated RVSP 49 mmHg. No right to left shunt with agitated saline. Cosigned by Germain Valle MD at 10/17/2024 3:48 PM EDT Associated attestation - Germain Valle MD - 10/17/2024 3:48 PM EDT ATTENDING ATTESTATION: The patient was seen and examined independently by me at bedside. I have done the clinical exam personally and have worked together in formulating the plan of care along with Dr Jude Rick. The case including the history, physical examination, assessment, and plan was discussed in detail with Dr Jude Rick. I have reviewed the patient's charts and labs in detail. I agree with their assessment and plan. The patient was seen on 10/17/2024 Germain Valle MD Will start glargine as outlined by Dr Jude Rick in her note. * Paramjit Finch MD - 10/16/2024 8:48 PM EDTAssociated Order(s): IP CONSULT TO SURGERY - NEURO Neurosurgery Consult Note Reason for Consultation: " c/f hemorrhagic stroke vs mass L temporal area Chief Complaint: AMS HPI Mr. Lani Zaragoza is a 69 y.o. male w/ a history of diabetes, afib on eliquis, HTN, HLD, PVD, and TODD who was admitted to OSH for debridement of right diabetic foot ulcer on 10/09. Noted to have mental status change 10/[address] head revealed left temporal hemorrhage. Transferred for further care. He takes Eliquis for Afib. Held since 10/09. ROS: All other systems are negative except as mentioned in HPI No past medical history on file. No past surgical history on file. No family history on file. Allergies No Known Allergies Infusions Scheduled Meds PRN Meds: hydrALAZINE, Labetalol Home Meds Prior to Admission medications Not on File Vitals Pulse (Heart Rate): [90] 90 Resp Rate: [20] 20 BP: (142)/(77) 142/77 O2 Sat (%): [98 %] 98 % Physical Awake Opens eyes spontaneously Answers simple questions appropriately Ox1 PERRL EOM grossly intact Face symmetric Follows commands x4 BUE/BLE antigravity R ankle braced SILT Labs No results for input(s): "PT", "INR" in the last 72 hours. Imaging: CT STROKE HEAD-STROKE ALERT ONLY (Results Pending) CT ANGIO BRAIN/NECK (Results Pending) A/P: Lani Zaragoaz is a 69 y.o. male w/ a history of diabetes, afib on eliquis, HTN, HLD, PVD, and TODD who was admitted to OSH for debridement of right diabetic foot ulcer on 10/09. Noted to have mental status change 10/[address] head revealed left temporal hemorrhage. - neuro checks - repeat CTH 6h from last - MRI brain with and without contrast when able - hemorrhagic stroke care per neurovascular - goal SBP<140, INR<1.4, Platelets >100k - hold all antiplatelet agents and anticoagulation - admission to NCCU Staff: Dr. Arroyo Covering: NS2 ([id number]) ## neurosurgery coverage changes at 0530/1730; if 0530 or 1730 has passed since original consult note placed, please page covering pager above ## Complexity. Wound Documentation Any conditions listed below are present on admission unless otherwise specified. . Cosigned by Aashish Arroyo MD, PhD at 10/17/2024 12:28 AM EDT * Kristen Ramon MD - 10/16/2024 8:44 PM EDT NEUROVASCULAR EVALUATION NOTE Date of Evaluation: October 16, 2024 Unit: [id number] Consultation requested by: Dr. Kevin Soriano* Patient status: Emergency Length of stay: 0 days Chief Complaint / Reason for Consult Hemorrhagic stroke alert History of present Illness Lani Zaragoza is a 69 y.o. male with PMH significant for afib on Eliquis who presents as hemorrhagic stroke alert. A stroke alert was called for STAT consultation. LKW 1200. Pt was hospitalized at OSH for chronic foot wound since 10/09 and is s/p debridement with podiatry. He was meant to dc today to SNF but around 1200 he became acutely confused and aphasic. Stroke alert was called and CTH demonstrated L temporal hemorrage, possible hemorrhagic mass with 4mm MLS. He is on Eliquis for his hx of afib, but this has been held since 10/09 given foot procedures. He was placed on cardene gtt prior to transfer, but was paused about 20 minutes prior to arrival. He was transferred to [facility] for further management. Neurovascular-specific History / Information Patient Location - Onset of Symptoms: Other acute healthcare facility Last Known Well: Date: 10/16/24 Last Known Well: Time: 1200 Source of information: Outside facility medical record - Home antiplatelet / anticoagulation therapy: Anticoagulation: Eliquis. - Patient current risk factors: Stroke risk factors include atrial fibrillation. Prior stroke history: no. - Stroke Diagnostic/Treatment Eligibility Information: He was not a candidate for thrombolytic (tPA/TNK) d/t ICH He was not a candidate for thrombectomy d/t no LVO - Stroke Clinical Assessment Information: NIHSS (Provider) Flowsheet Row First Filed Value Provider NIH Stroke Scale NIH Interval (Provider) -- NIH Level of Conciousness (Provider) 0 filed on 10/16/20242049 NIH LOC Questions (Provider) 2 filed on 10/16/20242049 NIH LOC Commands (Provider) 1 filed on 10/16/20242049 NIH Best Gaze (Provider) 0 filed on 10/16/20242049 NIH Visual (Provider) 0 filed on 10/16/20242049 NIH Facial Palsy (Provider) 0 filed on 10/16/20242049 NIH Left Arm Motor (Provider) 0 filed on 10/16/20242049 NIH Right Arm Motor (Provider) 0 filed on 10/16/20242049 NIH Left Leg Motor (Provider) 3 filed on 10/16/20242049 NIH Right Leg Motor (Provider) 3 filed on 10/16/20242049 NIH Limb Ataxia (Provider) 0 filed on 10/16/20242049 NIH Sensory (Provider) 1 filed on 10/16/20242049 NIH Best Language (Provider) 2 filed on 10/16/20242049 NIH Dysarthria (Provider) 0 filed on 10/16/20242049 NIH Extinction and Inattention (Provider) 0 filed on 10/16/20242049 NIH Total Score (Provider) 12 filed on 10/16/20242049 Is NIH=0 Within 180 min of Last Known Well Time? -- Stroke Scales Flowsheet Row Most Recent Value NIH Total Score (Provider) 12 filed on 10/16/20242049 Past History No past medical history on file. No past surgical history on file. No family history on file. Social History Socioeconomic History Marital status: No Known Allergies Medications None Review of Systems Per HPI Vitals Pulse (Heart Rate): [89-112] 112 Resp Rate: [19-25] 25 BP: (127-190)/(76-91) 190/82 O2 Sat (%): [92 %-98 %] 92 % There is no height or weight on file to calculate BMI. Patient Lines/Drains/Airways Status Active Lines, Drains, Airways, & Wound Overview Name Placement date Placement time Site Days () PICC Line - Single Lumen 10/16/242039 basilic vein (medial side of arm), right 10/16/242039 -- less than 1 Peripheral IV Line - Single Lumen 10/16/242042 clear basilic vein (medial side of arm), left 20 gauge 10/16/242042 -- less than 1 Physical Exam General Physical Exam General: NAD, lying comfortably in bed HENT: Normal oropharynx and mucosa. Normal external appearance of ears and nose. CV/Chest: Regular rate Lungs: No audible wheezing. Normal work of breathing. No accessory muscle use Abdomen: Non distended, non tender Extremities: Warm and well perfused. No appreciable edema, cyanosis or deformity. Skin: No rash. RLE wrapped Neurologic Examination Mental status/Cognition: alert; oriented to self, unable to state month or age; good attention; no apparent neglect Speech/language: will intermittently state "I'm going to ", otherwise does not answer questions Cranial nerves: CN III,IV, PERRL. EOMI. CN VII Face, Smile, Eyebrow raise/closure symmetric. CN VIII Hearing grossly intact to voice Motor: Normal bulk and tone. BUE antigravity without drift, no effort against gravity in BLE Sensation: WD to pain in LUE, no response to pain in LLE, RUE, or RLE Coordination/Complex Motor: - Unable to test Laboratory Results CBC: WBC/Hgb/Hct/Plts: 13.39/12.6/37.5/307 (10/16 2044) Chem: Bun/Creat/Cl/CO2/Glucose: 9/0.52/99//224 (10/16 2044) Electrolytes: Na/K+/Phos/Mg/Ca: 136/3.8/--/--/-- (10/16 2044) Coags: Ptt/Pt/Inr: 33.6/14.5/1.1 (10/16 2044) Lipid panel: No results found for: "CHOLESTEROL", "TRIG", "HDL", "LDLCALC", LDLDIRECT HA1C: No results found for: "HGBA1C" Imaging - 10/16/2024 CT Head: L temporal IPH with edema and mild mass effect - 10/16/2024 CTA brain/neck: No LVO, no clear spot sign - 10/16/2024 CT Perfusion: Not indicated Assessment Lani Zaragoza is a 69 y.o. male with PMH significant for afib on Eliquis who presents as hemorrhagic stroke alert. LKW 1200. Pt became acutely altered and aphasic. CTH demonstrating L temporal ICH, possibly conversion of MEASUREMENT PSYCHOLOGIST infarct. NSGY consulted. Pt will be admitted to NCCU for close monitoring. Plan L Temporal ICH, possible hemorrhagic conversion of MEASUREMENT PSYCHOLOGIST infarct -Please admit to Neurocritical care (NCC), attending Dr. Guzman. A hemorrhagic stroke order set hasbeen signed and held. ICH score 1 -Neurosurgery consulted. Appreciate recommendations -Check PT/INR/PTT and reverse any coagulopathy -Blood pressure goals with SBP less than 140 -Repeat a head CT [address] -No anticoagulation, antiplatelet therapy and pharmacological DVT prophylaxis until a follow up head CT/MRI has been completed to ensure stability of hemorrhage -Obtain brain MRI with and without contrast unless contraindicated -Swallow evaluation prior to any oral intake -ECHO to evaluate cardiac function -Lipid panel, LFTs and HgbA1c to evaluate secondary risk factors -Baseline EKG, if not done in ED. Continuous telemetry -PT, OT, Speech and social scientist consults Staff: Dr. Mateo Moore, neurovascular fellow and Dr. Dillan Guzman, NCCU attending. Thank you for the opportunity to take part in the care of this patient. Signed, Kristen Ramon MD PGY-2 Neurology Cosigned by Israel Schreiber MD at 10/22/2024 2:56 PM EDT Associated attestation - Israel Schreiber MD - 10/22/2024 2:56 PM EDT Date of service: 10/17/24 I have interviewed and examined patient. I have reviewed Resident/Fellow/MADHURI note and agree with the following highlights, additions, and addendums: Mr. Zaragoza is a 69M w/ A fib on Eliquis who was admitted to an outside hospital on 10/09/24 for chronic foot wound and is s/p debridement with podiatry. On the day he was to be discharged to SNF on 10/16/24 he became acutely confused and aphasic. Stroke alert was called and CTH demonstrated L temporal hemorrhage with surrounding hypodensity. His Eliquis was being held for surgery since 10/09. [facility]. NIHSS 12 on arrival to [facility]. His repeat imaging stable. Highest concern for stroke with hemorrhagic transformation in setting of afib and eliquis being held for surgery. MRI pending. SBP less than 160. Under NCCU care. Stroke to follow peripherally. I personally attended this patient and spent a total time of 45minutes evaluating this patient including clinical assessment, review of chart, medical history imaging, and determining appropriate treatment and workup. Israel Schreiber MD [facility]* AHSAN Junior - 10/16/2024 11:00 PM EDTAssociated Order(s): *ARTERIAL LINE Post-Procedure Diagnose(s): Nontraumatic cortical hemorrhage of left cerebral hemisphere *ARTERIAL LINE Procedure Date:: 10/17/2024 Start Time:: 23:00 EDT Performed by: AHSAN Junior Authorized by: AHSAN Junior Staff: Name of Art Gilder: Yahaira Ohara RN Consent Verbal consent obtained The procedure was performed in an emergent situation Consent given by: patient Risks and benefits were discussed. Risks discussed: arterial occlusion, arterial puncture, bleeding, limb ischemia and pseudoaneurysm Alternatives discussed: alternative treatment Indications Indications: hemodynamic monitoring [place] Protocol Patient does not state understanding of procedure being performed. (expressive aphasia, emergent)The patient's understanding of the procedure does not match consent given Procedure consent does not match procedure scheduled. Relevant documents present and verified: N/A Test results available and properly labeled: N/A Site marked: N/A Imaging studies available: N/A Required blood products, implants, devices, and special equipment available Patient identity confirmed: arm band and hospital-assigned identification number Immediately prior to the procedure a timeout was called. Checklist was followed: Yes Pre Procedure Details Hand hygiene used Landmarks identified Antiseptic used: skin prepped with ChloraPrep Skin prep agent completely dried prior to procedure Maximum sterile barriers were used: cap, mask, sterile gown, sterile gloves, and large sterile sheet Anesthesia Local anesthesia used: yes Local: local infiltration Local Anesthetic: 1% Lidocaine Anesthetic total: 0.5 mL Sedation Patient not sedated Procedure Details Location: Left radial artery Site selection rationale: 2+ pulse Patient Position: Supine Placement Technique: Breanadinger Number of attempts: 1 Procedure stop date: 10/17/2024 Procedure stop time: 23:11 EDT Procedure Vital Signs Monitored Post Procedure Successful Placement?: Yes Ultrasound guidance on successful attempt: No Guidewire removal confirmed: Yes Line secured with suture. Dressing applied: Sterile Post Procedure Diagnosis: Hemorrhagic stroke Estimated Blood Loss: < 10 mL Disposition of Specimen: No specimen was removed Complications: None immediate Patient tolerance: Patient tolerated the procedure well with no immediate complications Post-procedure circulation, movement, sensation: Unchanged Additional Documentation I performed the procedure myself documented in this [facility]04[facility] Emergency department Note* Chiquita Rodriguez RN - 10/16/2024 10:15 PM EDT Pt had another 10 second run of v tach * Chiquita Rodriguez RN - 10/16/2024 9:38 PM EDT Pt having 6-10 beats of Vtach multiple times. IV metoprolol given at this time. * Miriam Denson MD - 10/16/2024 9:02 PM EDT DEPARTMENT OF EMERGENCY MEDICINE CHIEF COMPLAINT No chief complaint on file. HPI Lani Zaragoza is a 69 y.o. male with history of recent admission at OSH for RLE osteomyelitis who presents as a transfer from an outside hospital as a stroke alert. LKW: 1200 Deficits include: aphasia Anticoagulation/Antiplatelets: on eliquis for afib; held since 10/09 iso surgical interventions at OSH Prior strokes: unk Blood glucose: 224 tPA given: no He had altered mental status earlier today at OSH; LKW approx noon. CTH at OSH showing c/f hemorrhage vs hemorrhagic mass. Transferred here for NSGY evaluation. REVIEW OF SYSTEMS Unable to obtain ROS secondary to acuity of patient's condition. PAST MEDICAL HISTORY No past medical history on file. SURGICAL HISTORY No past surgical history on file. CURRENT MEDICATIONS Current Facility-Administered Medications Medication Dose Route Frequency Provider Last Rate Last Admin amLODIPine (NORVASC) tablet 5 mg 5 mg Oral Daily AHSAN Junior Calcium Gluconate 10 % injection 2 g 2 g Intravenous As directed PRN AHSAN Junior Or Calcium Gluconate 4 g in Sodium chloride 0.9%, with overfill 150 mL (total volume) IVPB 4 g Intravenous As directed PRN AHSAN Junior Insulin regular (HUMULIN R;NOVOLIN R) injection Subcutaneous Q6H AHSAN Junior 4 Unitsat 10/17/24 0001 And Dextrose 50% injection 7.5-25 g 7.5-25 g Intravenous As directed PRN AHSAN Junior And glucose (GLUTOSE) 40 % oral gel 1-2 Tube 1-2 Tube Oral As directed PRAHSAN Ceron fentaNYL Citrate (PF) (SUBLIMAZE) injection hydrALAZINE (APRESOLINE) injection 10 mg 10 mg Intravenous Q1H PRN AHSAN Junior Or hydrALAZINE (APRESOLINE) injection 20 mg 20 mg Intravenous Q1H PRN AHSAN Junior Labetalol (NORMODYNE) injection 10 mg 10 mg Intravenous Q1H PRN Francie Grier APRN-PROGRAM COORDINATOR EXECUTIVE EDUCATION 10 mg at10/16/24 2359 Or Labetalol (NORMODYNE) injection 20 mg 20 mg Intravenous Q1H PRN Francie A Croghan, SUPERVISOR NEWSPAPER DELIVERIES-PROGRAM COORDINATOR EXECUTIVE EDUCATION Magnesium sulfate 4 g in sterile water 50 ml premix IVPB 4 g Intravenous As directed PRN Francie Grier APRN-MICHAEL Meropenem (MERREM) 1 g in sodium chloride 0.9% (MB PLUS) 100 mL (total volume) IVPB 1 g [id number] Miriam Denson MD 33.3 mL/hr at 10/16/24 2322 Rate Verify at 10/16/24 2322 Metoprolol (LOPRESSOR) tablet 25 mg 25 mg Oral Q12H Francie Grier SUPERVISOR NEWSPAPER DELIVERIES-PROGRAM COORDINATOR EXECUTIVE EDUCATION 25 mg at 10/16/24 2358 niCARdipine in sodium chloride (CARDENE) 40 mg-0.83/200 ml premix IV infusion 0- 15 mg/hr Intravenous Continuous Kevin Soriano MD 62.5 mL/hr at 10/16/24 2322 12.5 mg/hr at 10/16/24 2322 Potassium chloride 20 mEq in sterile water 50 ml premix IVPB 20 mEq Intravenous As directed PRN Francie Grier APRN-PROGRAM COORDINATOR EXECUTIVE EDUCATION Or Potassium chloride (K-DUR) tablet ER 40-80 mEq 40-80 mEq Oral As directed PRN Francie Grier SUPERVISOR NEWSPAPER DELIVERIES-PROGRAM COORDINATOR EXECUTIVE EDUCATION Or Potassium Bicarb-Citric Acid (Effer-K) 20 MEQ effervescent tablets for oral solution 40-80 mEq 40-80 mEq Per NG tube As directed PRN Francie Grier APRN-PROGRAM COORDINATOR EXECUTIVE EDUCATION Or Potassium chloride 10 mEq in sterile water 100 ml premix IVPB 10 mEq Intravenous As directed PRN Francie Grier SUPERVISOR NEWSPAPER DELIVERIES-PROGRAM COORDINATOR EXECUTIVE EDUCATION Sodium chloride 0.9% IV solution 250 mL 250 mL Intravenous PRN Francie Grier SUPERVISOR NEWSPAPER DELIVERIES-PROGRAM COORDINATOR EXECUTIVE EDUCATION Sodium chloride 0.9% IV solution Intravenous Continuous Francie Grier SUPERVISOR NEWSPAPER DELIVERIES- PROGRAM COORDINATOR EXECUTIVE EDUCATION 1 mL/hr at 10/16/24 2324 New Bag at 10/16/24 2324 Sodium chloride 0.9% IV solution Intravenous Continuous Francie Grier SUPERVISOR NEWSPAPER DELIVERIES-PROGRAM COORDINATOR EXECUTIVE EDUCATION sodium phosphate 30 mmol in Sodium chloride 0.9%, with overfill 285 mL (total volume) IVPB 30 mmol Intravenous As directed PRN Francie Grier APRN-PROGRAM COORDINATOR EXECUTIVE EDUCATION Or sodium phosphate 45 mmol in Sodium chloride 0.9%, with overfill 290 mL (total volume) IVPB 45 mmol Intravenous As directed PRN Francie Grier, SUPERVISOR NEWSPAPER DELIVERIES-PROGRAM COORDINATOR EXECUTIVE EDUCATION Vancomycin HCl in NaCl (Vancocin) 1,500 mg 290 ml premade IVPB 1,500 mg Intravenous Q12HNS Miriam Denson MD ALLERGIES No Known Allergies FAMILY HISTORY No family history on file. SOCIAL HISTORY Social History Socioeconomic History Marital status: Spouse name: Not on file Number of children: Not on file Years of education: Not on file Highest education level: Not on file Occupational History Not on file Tobacco Use Smoking status: Not on file Smokeless tobacco: Not on file Substance and Sexual Activity Alcohol use: Not on file Drug use: Not on file Sexual activity: Not on file Other Topics Concern Not on file Social History Narrative Not on file Social Drivers of Health Financial Resource Strain: Not on file Food Insecurity: Not on file Transportation Needs: Not on file Physical Activity: Not on file Stress: Not on file Social Connections: Not on file Personal Safety: Not on file Housing Stability: Not on file PHYSICAL EXAM BP 170/78 Pulse 97 Temp 97.3 F (36.3 C) (Axillary) Resp 21 Ht 1.753 m (5' 9") Wt (!) 163 kg (359 lb 5.6 oz) SpO2 92% BMI 53.07 kg/m Constitutional: Alert, ill appearing HENT: Head: Normocephalic, atraumatic. Nose: Normal. Mouth/Throat: Oropharynx clear. Eyes: Conjunctivae normal, without scleral icterus Neck: Supple. No tracheal deviation. Cardiovascular: No m/r/g. Irregular. Pulmonary/Chest: Normal effort with normal breath sounds. No audible stridor Abdominal: Soft, nontender. Musculoskeletal: RLE w traction pin in place : Deferred. Neurological: NIHSS as below. Skin: Warm and dry. No diaphoresis. Nursing note and vitals reviewed. NIHSS (Provider) Flowsheet Row First Filed Value Provider NIH Stroke Scale NIH Interval (Provider) -- NIH Level of Conciousness (Provider) 0 filed on 10/16/20242049 NIH LOC Questions (Provider) 2 filed on 10/16/20242049 NIH LOC Commands (Provider) 1 filed on 10/16/20242049 NIH Best Gaze (Provider) 0 filed on 10/16/20242049 NIH Visual (Provider) 0 filed on 10/16/20242049 NIH Facial Palsy (Provider) 0 filed on 10/16/20242049 NIH Left Arm Motor (Provider) 0 filed on 10/16/20242049 NIH Right Arm Motor (Provider) 0 filed on 10/16/20242049 NIH Left Leg Motor (Provider) 3 filed on 10/16/20242049 NIH Right Leg Motor (Provider) 3 filed on 10/16/20242049 NIH Limb Ataxia (Provider) 0 filed on 10/16/20242049 NIH Sensory (Provider) 1 filed on 10/16/20242049 NIH Best Language (Provider) 2 filed on 10/16/20242049 NIH Dysarthria (Provider) 0 filed on 10/16/20242049 NIH Extinction and Inattention (Provider) 0 filed on 10/16/20242049 NIH Total Score (Provider) 12 filed on 10/16/20242049 Is NIH=0 Within 180 min of Last Known Well Time? -- IMAGING CT ANGIO BRAIN/NECK Preliminary Result IMPRESSION: \\ 1. Examination is equivocal for mid/distal left posterior cerebral artery occlusion (5/144). Artifact from venous contamination and vessel tortuosity limits characterization, and this may reflect a vessel bifurcation. As such, presence of infarct with hemorrhagic conversion is not definitive, and underlying mass would be difficult to exclude on the basis of CT alone. MRI with and without contrast is advised to aid characterization, to include MR angiography to more convincingly assess patency of the left posterior cerebral artery. I, Catherine Cornejo MD have discussed the critical finding/s of possible left MEASUREMENT PSYCHOLOGIST occlusion with Kristen Ramon MD on 10/16/2024 8:[address] STROKE HEAD-STROKE ALERT ONLY Final Result IMPRESSION: 1. 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 2. Trace interventricular hemorrhage. 3. Localized mass effect without significant midline shift, herniation, hydrocephalus. Pulmonary results were discussed with Kristen Ramon MD at 8:57 PM on October 16, 2024. I personally viewed and interpreted these images and I have reviewed and approved this report. CARDIOGRAM (Results Pending) XR CHEST 1 VIEW PORTABLE (Results Pending) MRI BRAIN WITH AND WITHOUT CONTRAST (Results Pending) ED COURSE & MEDICAL DECISION MAKING Important diagnostic considerations include: ischemic stroke, hemorrhagic stroke, transient ischemic attack, hypoglycemia, electrolyte abnormality, infection, seizure, complex migraine with unilateral symptoms Initial Plan: Labs: POC glucose, CBC, Chem, LFTs, EKG, PT/INR Imaging: as above Therapeutic: [x] PRN Hydralazine & Labetalol [] Nicardipine gtt Goal systolic BP <140 Consultation: [x] Neurovascular [] Neurosurgery ED Course, Medications Given, MDM: Patient arrived via EMS as a stroke alert. Patient evaluated at the CT scanner by myself and neurovascular resident. The patient was found to be hemodynamically stable and protecting airway. In summary, 69 yo presenting as transfer from OSH w aphasia, found to have hemorrhage on CT Head. NSGY and neurovascular consulted on arrival to ED. They recommend admission to NCCU for further management. He did have a few runs of NSVT vs afib w aberrancy while in the ED. Given metoprolol with some improvement. He is hemodynamically stable during these episodes. Anticipate need for cardiology consultation while admitted, though will defer to NCCU. Will continue to be monitored while in the emergency department. Independent Historian: EMS External Data Reviewed: [] Labs. [] Radiology. [] ECG. [] Notes. ECG/medicine tests: ordered and independent interpretation performed. Decision- making details documented above. Labs: ordered. Decision-making details documented above. Radiology: ordered and independent interpretation performed. Decision-making details documented above. Discussion of management or test interpretation with external provider(s): LANDON Yap Risk Low: [] OTC drugs. [] Minor surgery with no identified risk factors. Moderate: [x] Prescription drug management. [] Minor surgery with identified risk factors. [] Elective major surgery with no identified risk factors. [] Diagnosis or treatment significantly limited by social determinants of health. High: [] Parenteral controlled substances. [] Drug therapy requiring intensive monitoring for toxicity. [x] Decision regarding hospitalization. [] Decision not to resuscitate or to de-escalate care because of poor prognosis. [] Elective major surgery with identified risk factors. [] Emergency major surgery. Medications Vancomycin HCl in NaCl (Vancocin) 1,500 mg 290 ml premade IVPB (has no administration in time range) Meropenem (MERREM) 1 g in sodium chloride 0.9% (MB PLUS) 100 mL (total volume) IVPB ( Intravenous Rate/Dose Verify 10/16/242321) niCARdipine in sodium chloride (CARDENE) 40 mg-0.83/200 ml premix IV infusion (12.5 mg/hr Intravenous Rate/Dose Verify 10/16/242321) Sodium chloride 0.9% IV solution 250 mL (has no administration in time range) Labetalol (NORMODYNE) injection 10 mg (10 mg Intravenous Given 10/16/242358) Or Labetalol (NORMODYNE) injection 20 mg ( Intravenous See Alternative 10/16/242358) hydrALAZINE (APRESOLINE) injection 10 mg (has no administration in time range) Or hydrALAZINE (APRESOLINE) injection 20 mg (has no administration in time range) Calcium Gluconate 10 % injection 2 g (has no administration in time range) Or Calcium Gluconate 4 g in Sodium chloride 0.9%, with overfill 150 mL (total volume) IVPB (has no administration in time range) Potassium chloride 20 mEq in sterile water 50 ml premix IVPB (has no administration in time range) Or Potassium chloride (K-DUR) tablet ER 40-80 mEq (has no administration in time range) Or Potassium Bicarb-Citric Acid (Effer-K) 20 MEQ effervescent tablets for oral solution 40-80 mEq (hasno administration in time range) Or Potassium chloride 10 mEq in sterile water 100 ml premix IVPB (has no administration in time range) Magnesium sulfate 4 g in sterile water 50 ml premix IVPB (has no administration in time range) sodium phosphate 30 mmol in Sodium chloride 0.9%, with overfill 285 mL (total volume) IVPB (has no administration in time range) Or sodium phosphate 45 mmol in Sodium chloride 0.9%, with overfill 290 mL (total volume) IVPB (has no administration in time range) Insulin regular (HUMULIN R;NOVOLIN R) injection (4 Units Subcutaneous Given 10/17/24 0001) And Dextrose 50% injection 7.5-25 g (has no administration in time range) And glucose (GLUTOSE) 40 % oral gel 1-2 Tube (has no administration in time range) fentaNYL Citrate (PF) (SUBLIMAZE) injection ( Not Given 10/16/242324) Sodium chloride 0.9% IV solution ( Intravenous $$New Bag$$ 10/16/242323) Sodium chloride 0.9% IV solution (has no administration in time range) Metoprolol (LOPRESSOR) tablet 25 mg (25 mg Oral Given 10/16/242357) amLODIPine (NORVASC) tablet 5 mg (has no administration in time range) iohexol (OMNIPAQUE) 350 MG/ML injection 1-171 mL (100 mL Intravenous Given - Radiology 10/16/242047) Sodium chloride (PF) 0.9 % injection 1-100 mL (20 mL Intravenous Given 10/16/242047) metoprolol (LOPRESSOR) injection 5 mg (5 mg Intravenous Given 10/16/242140) levETIRAcetam (KEPPRA) injection 1,000 mg (1,000 mg Intravenous Given 10/16/242200) Disposition: NCCU Miriam Denson MD Resident 10/17/245 * Kevin Soriano MD - 10/16/2024 8:54 PM EDT ED Attending Note CHIEF COMPLAINT No chief complaint on file. HPI Lani Zaragoza is a 69 y.o. male who presents with concern for hemorrhagic stroke. Was inpatient at [facility] facility for foot wound/osteomyelitis. Had ex fix, completed yesterday. Plan was to dc to [facility] today. At noon had altered mental status. Found to have tumor vs bleed. On doac for afib, but held since before surgery. Pt unable to provide further history. No past medical history on file. PHYSICAL EXAM VITAL SIGNS: BP 142/77 Pulse 90 Resp 20 SpO2 98% Physical Exam Vitals and nursing note reviewed. Constitutional: General: He is not in acute distress. Appearance: He is well-developed. He is ill-appearing. Pulmonary: Effort: Pulmonary effort is normal. No respiratory distress. Musculoskeletal: Comments: Ex fix on rle Neurological: Mental Status: He is confused. Comments: Altered, not fully following commands, not conversant, moving all extremities Psychiatric: Mood and Affect: Mood normal. Behavior: Behavior normal. ASSESSMENT, PLAN, & ED COURSE DDx (includes acute life and/or limb threats): hemorrhagic stroke, solar process engineer malignancy, lymphoma, mets EKG Interpretation Interpreted by emergency department physician Rhythm: atrial fibrillation - controlled Rate: normal [place]: normal Ectopy: premature ventricular contractions (unifocal) Conduction: normal ST Segments: no acute change T Waves: no acute change Q Waves: none Clinical Impression: atrial fibrillation (chronic) Kevin Soriano MD Medical Decision Making Pt presents with ongoing AMS. On ym interpretation has ich without significant midline shift. Closeairway watch. Will require admission. Pt started having arrythmia's. I think this is likely a variable bundle branch brlock rather than true ventricular tachycardia. Given home metoprolol with improvement. Problems Addressed: Intracranial hemorrhage: acute illness or injury that poses a threat to life or bodily functions Amount and/or Complexity of Data Reviewed Labs: ordered. Radiology: ordered and independent interpretation performed. Decision-making details documented in ED Course. ECG/medicine tests: ordered. Discussion of management or test interpretation with external provider(s): Neurovasc consult Risk Prescription drug management. Decision regarding hospitalization. Critical Care - intracranial hemorrhage Time 36 minutes. Total number of minutes spent in direct care of this critically ill patient excludes procedure time. Interventions: Serial Hemodynamic evaluation Serial Neurologic evaluation Laboratory evaluation/interpretation Radiographic evaluation/interpretation IV Antihypertensive management and titration Discussion with accepting team on patient status Discussion with consulting team on patient status On 10/16/2024, I personally saw and examined this patient. I have fully participated in the care of this patient. I have reviewed all pertinent clinical information, including history, physical exam and plan with the resident, and agree with the plan of care. Part of this documentation was created with voice recognition software and errors may have occurred. Kevin Soriano MD 10/16/24 2231 * Chiquita Rodriguez RN - 10/16/2024 8:39 PM EDT BG 240. * Chiquita Rodriguez RN - 10/16/2024 8:34 PM EDT Pt arrives from outside facility, hardware to right foot for osteomyelitis, has been hospitalized since 10/09. Around [id number] he developed aphasia, head ct showed hemorrhage with mass effect. Pt alert to self. BG en route . Pt on eliquis at home, unsure of last dose of eliquis. Hx of Afib. 2-3LPM NC. * Jose Juan Lyn RN - 10/16/2024 8:34 PM EDT Bed: E040 Expected date: 10/16/24 Expected time: 8:30 PM Means of arrival: Private Ambulance Comments: [facility] History and physical note* Elizabeth Bettencourt MD - 10/16/2024 10:09 PM EDT NEUROCRITICAL CARE HISTORY AND PHYSICAL HOSPITAL VISIT DEMOGRAPHICS Patient: Lani Zaragoza Code status: No Order Admission date: 10/16/2024 8:33 PM Hospital days: LOS: 0 days CHIEF COMPLAINT stroke HISTORY OF PRESENT ILLNESS Lani Zaragoza is a 69 y.o. male with a past history of afib on Eliquis who presents as hemorrhagic stroke alert. A stroke alert was called for STAT consultation. LKW 1200. Pt was hospitalized at [facility] for chronic foot wound since 10/09 and is s/p debridement with podiatry. He was meant to dc today to SNF but around 1200 he became acutely confused and aphasic. Stroke alert was called and CTH demonstrated L temporal hemorrage, possible hemorrhagic mass with 4mm MLS. He is on Eliquis for his hx of afib, but this has been held since 10/09 given foot procedures. He was placed on cardene gtt prior to transfer, but was paused about 20 minutes prior to arrival. He was transferred to [facility] for further management. INTERVAL HISTORY SINCE ADMISSION 10/16/2024: Admitted to NCCU REVIEW OF SYSTEMS Review of systems not obtained due to aphasia. HISTORY No past medical history on file. No past surgical history on file. Social History Socioeconomic History Marital status: Spouse name: Not on file Number of children: Not on file Years of education: Not on file Highest education level: Not on file Occupational History Not on file Tobacco Use Smoking status: Not on file Smokeless tobacco: Not on file Substance and Sexual Activity Alcohol use: Not on file Drug use: Not on file Sexual activity: Not on file Other Topics Concern Not on file Social History Narrative Not on file Social Drivers of Health Financial Resource Strain: Not on file Food Insecurity: Not on file Transportation Needs: Not on file Physical Activity: Not on file Stress: Not on file Social Connections: Not on file Personal Safety: Not on file Housing Stability: Not on file ALLERGIES AND HOME MEDICATIONS Allergies: has no known allergies. Home Medications: (Not in a hospital admission) Prior to Arrival Meds: (Not in a hospital admission) Hospital Medications: Infusions: niCARdipine 5 mg/hr (10/16/242) Scheduled: meropenem 1 g Intravenous Q8HNS [START ON 10/17/2024] vancomycin 1,500 mg Intravenous Q12HNS PRN: hydrALAZINE, Labetalol PHYSICAL EXAM GENERAL: Alert, no acute distress HEENT: normocephalic, no scalp wounds nor lesions CARDIO: +S1S2, RRR, no m/r/g, no edema PULM: clear/diminished/rhochorous to auscultation bilaterally, equal chest rise; ABDOMINAL: soft, nontender, nondistended, active bowel sounds EXTREMITIES: no wounds or lesions VASCULAR: + distal pulses, capillary refill <3 seconds, has left arm PICC line with no erythema,purulent drainage, or signs of infection and dressing is C/D/I. NEURO: Mental status: Awake, tells his , difficulty telling month, difficulty naming objects, mild dysarthria, RHH. Moves all extremities well ASSESSMENT AND PLAN Neuro: (10/16) Acute Left MEASUREMENT PSYCHOLOGIST CVA Left temporal ICH likely hemorrhagic transformation of ischemic stroke - ICH Management: - Monitor neurostatus with neurochecks Q1H - Prevent further expansion with goal SBP <140 (see cards) - 10/16 NSGY consult: Ct head, MRI - Daily NIHSS: NIH Stroke Scale: NIH Level of Conciousness (Provider): 0 NIH LOC Questions (Provider): 1 NIH LOC Commands (Provider): 0 NIH Best Gaze (Provider): 0 NIH Visual (Provider): 2 NIH Facial Palsy (Provider): 0 NIH Left Arm Motor (Provider): 0 NIH Right Arm Motor (Provider): 0 NIH Left Leg Motor (Provider): 1 NIH Right Leg Motor (Provider): 0 NIH Limb Ataxia (Provider): 0 NIH Sensory (Provider): 0 NIH Best Language (Provider): 1 NIH Dysarthria (Provider): 1 NIH Extinction and Inattention (Provider): 0 NIH Total Score (Provider): 6 - Imaging: - 10/16 CTA H/N: 1. Examination is equivocal for mid/distal left posterior cerebral artery occlusion (5/144). Artifact from venous contamination and vessel tortuosity limits characterization, and this may reflect a vessel bifurcation. As such, presence of infarct with hemorrhagic conversion is not definitive, and underlying mass would be difficult to exclude on the basis of CT alone. MRI with and without contrast is advised to aid characterization, to include MR angiography to more convincingly assess patency of the left posterior cerebral artery. - 10/16 20:4700: Initial CT H: Left Temperooccipital ICH likely hemorrhagic transformation of left MEASUREMENT PSYCHOLOGIST stroke, ICH, mild mass effect - 10/17: 6H-stability CT H: pending - / MRI B: - Cytotoxic Cerebral Edema Management: - Goal Na 135 - 145 Recent Labs 10/16/24 2045 SODIUM 136 OSMOLALITY 292 CHLORIDE 99 - Hemorrhage presumably 2/2 ischemic stroke etiology; evaluation for cause and source: - Complete TTE (see cards) - Obtain LDL level and statin therapy if indicated (see cards) - Obtain HA1C level (see endo) - Defer antiplatelet therapy and therapeutic anticoagulation - Consider urine drug screen on admission if no stroke risk factors - Consider hypercoagulability panel 24H-post tPA if no stroke risk factors - Initiate VTE prophylaxis after bleed stability established (see heme) - Initial CVA Management: - 10/16 Stroke alert performed; summary of imaging findings: as above - No TNk as hemorrhagic conversion - 10/16 NSGY consulted - Ongoing CVA management: - Hold Antiplatelets given hemorrhagic transformation - Daily NIHSS: - Stroke etiology presumed to be cardioembolic based on the TOAST Criteria. Stroke risk factors include atrial fib.. - Complete TTE (see cards) - Obtain LDL level and statin therapy if indicated (see cards) - Obtain HA1C level (see endo) - Initiate antiplatelet therapy within 48H of admission (see cards) - Initiate VTE prophylaxis immediately if no tPA given or 24H post-thrombectomy if performed (see heme) - Develop therapeutic anticoagulation plan, if indicated based on CVA etiology (see cards) - Consider urine drug screen on admission if no stroke risk factors - Consider hypercoagulability panel 24H-post tPA if no stroke risk factors Pain/Sedation management: - Tylenol 650mg Q4H PRN - Oxycodone 5mg Q6H PRN - Dilaudid 0.2mg Q3H PRN Psych: No Current Issues Pulm: No Current Issues @NCCVENTSETTINGS@ - Goal SpO2 >92%; wean FiO2 as tolerated - [id number], encourage pulmonary toileting - / CXR: result Cards: Atrial Fibrillation HTN Pulse (Heart Rate): [71-112] 89 Resp Rate: [19-25] 23 BP: (127-190)/(74-91) 170/82 O2 Sat (%): [91 %-98 %] 91 % Weight: [172 kg (379 lb 3.1 oz)] 172 kg (379 lb 3.1 oz) - Goal SBP <140, MAP >65 - Home antihypertensives: - Current regimen: - PRN labetalol and hydralazine - Nicardipine drip - / TTE: read - 10/16 troponin: 6 level - 10/16 ECG: AFib, interfascicular block - Statin Therapy: Indicated if LDL >70; began No results for input(s): "CHOLESTEROL", "TRIG", "HDL", "LDLDIRECT" in the last 72 hours. - Afib: Hold AC for now given ICH Renal/: No Current Issues Fluid Balance: - Goal: euvolemia - Maintenance: 0.9NS w/ 20 KCl @ 75mL/hr No intake or output data in the 24 hours ending 10/16/242209 - Daily Chem 10; electrolytes replaced per NCCU protocol Recent Labs 10/16/242044 SODIUM 136 POTASSIUM 3.8 CHLORIDE 99 CO2 29 BUN 9 CREATSERUM 0.52* GI/Nutrition: No Current Issues Recent Labs 10/16/242044 ALBUMIN 3.5 BILIDIRECT 0.2 BILITOTAL 0.6 ALKPHOS 92 ALT 13 AST 14 TP 7.2 - DIET NPO WITHOUT meds - [place] Swallow Screening Result: failed=NPO Bowel regimen: - - Senna, miralax Stress ulcer prophylaxis: - Endo: DM Type 2 - Goal blood glucose 140-180 - Insulin SSI: R Q6H Recent Labs 10/16/24203710/16/242044 GLUCOSE 240* 224* ID: Wound Dehiscence - Chronic Right foot s/p debridement with podiatry Ortho/podiatry and ID recs in am Recent Labs 10/16/242044 WBC 13.39* - Hemphill Cx, procalcitonin, lactate - No data recorded. - PRN Tylenol for T>100.4F - Most recent and positive cultures: Date Collected Source Result Date Finalized 10/16 Staph nasal swab - Antiinfectives: Start Date Antiinfective Coverage Course Length Stop Date Meropenem Vancomycin Heme/Onc: Anemia of Chronic Disease Recent Labs 10/16/242044 WBC 13.39* RBC 4.75 HGB 12.6* HCT 37.5* PLATELET 307 PT 14.5* PTT 33.6 INR 1.1 - Goal plt >100, INR <1.4, Hgb >7 DVT prophylaxis: - SCd, pharmacological prophylaxis after 24 hCT Musc: RLE chronic wound - PT/OT consulted and following - Current Activity Order: Bed rest Fall Risk: - Assessed for patient fall risk and discussed safety measures during rounding. Social/Dispo: - Code status: No Order - /: Medications reconciled - Discharge planning per PCRM/SW. Complexity. Wound Documentation Any conditions listed below are present on admission unless otherwise specified. .Hypertension, Uncomplicated - Ischemic CVA, Location: Left MEASUREMENT PSYCHOLOGIST - hemorrhagic transformation ICU Checklist: [x] Assess pain [x] Both SAT & SBT [x] Choice of analgesia/ sedation See neuro [x] Delirium [x] Early mobility PT/OT consulted?: Yes [x] Family Engagement Primary Emergency Contact: Rogelio Zaragoza Last updated: [x] Get lines out [place]: inserted 10/16, (indication: HTN) Beard: inserted , (indication:) Rectal tube: inserted , (indication:) Enteral access: inserted /, [ ] gastric; [ ] post-pyloric Central lines: Central Line LDAs Active Central Line Access Devices Name Placement date Placement time Site Days (Infant) PICC Line - Single Lumen 10/16/242039 basilic vein (medial side of arm), right 10/16/242039 -- less than 1 Central Line Indications: No alternative access available Left PICC line from OSH If patient has multiple lines, please choose the answers of the next two questions to correlate with the lines listed above in descending order Can line/s be removed today? Select all that apply No line in place at this time Dressing/s Clean/Dry/Intact?: Select all that apply No line currently in place Critical care time 35 min. He is critically ill from his hemorrhagic transformation of ischemic stroke. Management of ICH, hypertension was done. Discussed with NCCU Attending, Dr. Thomas Bettencourt MD 10/16/24 10:10 PM Check the treatment team to find the assigned neurocritical care provider (resident, fellow, DISTRIBUTION FIELD ENGINEER, orPA) or page/call the corresponding number below NCC1 (Beds 2488-8823): [place] # [phone], pager #[phone] NCC2 (Beds 0664-4960, 12 Jing, and overflow): [place] #: [phone], pager #[phone] documented [facility]04-22-[facility] History and physical note [facility] Medical Records Department [address] [place] [address] H&P Exam - Hospitalist 10/09/24 1552 MR#: [id number] Acct: [id number] Name: LANI ZARAGOZA Rep #:[id number] : 1955 69 From: Chula Antunez MD PCP: Dr. Brenabe Reese MD Status:AD M [place] [facility] [id number] HPI - General General Date of Admission: 10/09/24 Date of Service: 10/09/24 Chief Complaint: R diabetic foot ulcer HPI Narrative LANI ZARAGOZA, is a 69-year-old male with a history of diabetes, hypertension, sleep apnea, paroxysmal atrial fibrillation A-fib who presented [facility] ED 2024 from wound clinic for IV antibiotics and likely surgery. He has had a worsened right heel wound over 4 to 5 weeks and is followed by wound care, presently on Augmentin but when he was seen today he wassent to the ED.In the ED blood pressure initially 199/80 but otherwise vitallystable, repeat blood pressure 141/67. Chest x-ray with right basilar atelectasis however patient with no new changes in his breathing orcough so suspected to be atelectasis not pneumonia and foot x-ray unremarkable. Labs revealed a white blood cell count of 11.3 and an ESR of 30. Glucose 384 on BMP and lactic acid 3.6 with a CRP of 141. Hospitalist contacted for admission. Patient evaluated bedside and does report that ulcer over the past month, reports with his neuropathy that he cannot really feel it so does not have pain but does note it "itches", has chronic fatigue which has not changed recently and also has chronic shortness of breath which has not changed with no cough or fever. 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 [facility] Medical History Chronic cellulitis Streptococcal bacteremia Hyperglycemia due to diabetes mellitus Chronic anticoagulation Fall Wears glasses Depression Anxiety Alcohol use History of ulceration Ambulates with cane Insulin dependent diabetes mellitus Arthritis Low iron Dietary restriction Former smoker Shortness of breath on exertion Leg cramps History of pain when walking History of edema Cardiology follow-up encounter History of echocardiogram Blackout Restless legs HTN (hypertension) Diabetes BiPAP (biphasic positive airway pressure) dependence Atrial fibrillation Hyperlipidemia Thyroid nodule Lower extremity neuropathy Essential (primary) hypertension Type 2 diabetes mellitus Morbid obesity Obstructive sleep apnea New onset atrial fibrillation (10/01/20) Pickwickian syndrome Bilateral leg edema Home Medications ?Medication ?Instructions ?Recorded ?Last Taken ?Type losartan 100 mg tablet 100 mg PO QHS Check with supriya suoza 04/04/14 10/08/24 History doctor metformin 1,000 mg tablet 1,000 mg PO BIDCM diabetes 1 10/09/24 History amlodipine 5 mg tablet 5 mg PO QHS BP 10/01/2009/19 History nrqicpzf-ga-qyrch 300 mcg-K 60 1 tablet PO DAILY suppl emetn 10/01/20 05/21/23 History mcg-lycop 600 mcg-lutein 300 mcg tablet insulin glargine U-300 conc 300 25 unit subcut QHS sudheer zay 09/27/22 05/20/23 History unit/mL (3 mL) subcutaneous pen (Toujeo Max U-300 SoloStar) apixaban 5 mg tablet 5 mg PO BID blood thinner 10/09/24 History gabapentin 800 mg tablet 800 mg PO .COMPLEX PRN neuro paula 11/29/22 10/09/24 History pen needle, diabetic 32 gauge x #1,200 ea 05/23/23 Unk nown Rx " acetaminophen 500 mg tablet 1,000 mg PO TID 07/11/23 U nknown History (Tylenol Extra Strength) blood sugar diagnostic (OneTouch #10 ea 07/11/23 Unkno wn History Ultra Test strips) amoxicillin 875 mg-potassium 1 tab PO BID 10/09/24 History clavulanate 125 mg tablet metoprolol tartrate 50 mg tablet 50 mg PO BID 10/09/24 10/09/24 History Allergy/AdvReac Type Severity Reaction Status Date / Time ampicillin Allergy Unknown Verified 10/09/24 12:49 peanut Allergy NEEDS Verified 10/09/24 12:49 FOLLOW-UP Penicillins Allergy Unknown Verified 10/09/24 12:49 Family History Mother Heart disease Diabetes Father Heart disease Cancer Surgical History History of amputation of toe History of wisdom tooth extraction Social History housing: apartment Smoking Status: Never smoker how long ago did patient quit smokin alcohol intake: never substance use type: does not use caffeine: Yes ROS ROS Narrative General: Denies fever/chills HENT: Denies headache, denies stuffy nose, denies sore throat EYES: Denies changes in vision Resp: Denies cough, chronic shortness of breath unchanged Cardiac: Denies chest pain GI: Denies abdominal pain, denies changes in bowel, denies nausea/vomiting : Denies changes in urination Extremity: Denies swelling MSK: Denies weakness Neuro: Chronic neuropathy in feet Heme: Denies any bleeding or bruising Skin: Right foot wound Psychiatric: No complaints voiced Vital Signs Vital Signs Vital Signs: 10/09/24 12:46 10/09/24 13:26 10/09/24 13:46 Temperature 97.8 F 97.9 F Temperature Source Oral Oral Pulse Rate 79 95 Respiratory Rate 14 20 H Blood Pressure 199/80 H 141/67 H Blood Pressure Mean 119 91 Pulse Ox 98 98 98 Oxygen Delivery Method Room Air Room Air Room Air 10/09/24 14:00 10/09/24 15:00 10/09/24 15:17 Temperature 97.9 F 98.6 F 98.6 F Temperature Source Oral Oral Pulse Rate 95 95 95 Respiratory Rate 18 18 18 Blood Pressure 140/98 H 149/61 H 149/61 H Blood Pressure Mean 112 90 90 Pulse Ox 98 98 98 Oxygen Delivery Method Room Air Room Air Physical Exam Narrative General: Alert, oriented, no apparent distress HEENT: Atraumatic, normocephalic Eyes: Anicteric, normal conjunctiva, extraocular movements grossly intact Neck: Supple Respiratory: Diminished at the bases but largely due to body habitus, normal respiratory effort Cardiovascular: Irregularly irregular GI: Soft, nontender, nondistended Extremities: Some nonpitting edema Musculoskeletal: Moving all extremities Neuro: Chronic neuropathy in his feet Skin: Right foot wrapped, does have some warmth in the leg and some slight erythema Psych: Cooperative Results Lab / Micro Data 10/09/24 13:40 10/09/24 13:40 Labs: Laboratory Results - last 24 hr 10/09/24 13:40: WBC 11.3 H, RBC 4.78, Hgb 12.8 L, Hct 38.6 L, MCV 80.8, MCH 26.8L, MCHC 33.2, RDW Std Deviation 37.2, RDW Coeff of Jada 12.8, Plt Count 243, MPV 9.8, Immature Gran % (Auto) 0.400, Neut% (Auto) 82.8 H, Lymph % (Auto) 9.2 L, Navarro % (Auto) 6.5, Eos % (Auto) 0.7, Baso % (Auto) 0.4, Absolute Neuts (auto) 9.4 H, Absolute Lymphs (auto) 1.04, Nucleated RBC % 0, ESR 30 H, PT Cancelled, INRCancelled, APTT Cancelled, Sodium 134, Potassium 3.9, Chloride 93 L, Carbon Dioxide 27.8, Anion Gap14, BUN 8, Creatinine 0.81, Est GFR (MDRD) Non-Af 95, BUN/Creatinine Ratio 9.6 L, Glucose 384 H, Calcium 9.0, Total Bilirubin 0.88, AST18, ALT 11, Alkaline Phosphatase 104, C-React Prot Ext Range 141.00 H, Total Protein 7.3, Albumin 3.5, Globulin 3.8, Albumin/Globulin Ratio 0.9 10/09/24 13:42: Lactic Acid 3.6 H* 10/09/24 13:47: Blood Type A NEGATIVE, Antibody Screen NEGATIVE 10/09/24 14:54: PT 16.6 H, INR 1.3, APTT 32.3 Imaging Radiology Impression Chest X-Ray 10/09/24 13:45 IMPRESSION: Right basilar atelectasis or pneumonia. Reading Location: [facility] Foot X-Ray 10/09/24 13:45 IMPRESSION: No obvious radiographic evidence of osteomyelitis. However, if clinical suspicion remains high, further evaluation with 3 phase bone scan or MRI is recommended. Reading Location: [facility] Assessment & Plan Assessment/Plan (1) Diabetic ulcer of right heel: PLAN: Plan # Right heel diabetic foot wound -With concerns for abscess and/or osteomyelitis -ESR 30, CRP 41, white blood cell count 11.3 with left shift - Continue broad-spectrum antibiotics -Podiatry consult -Culture sent in ED -May need ID consultation once further workup and culture and sensitivity data available - Wound care consult #Type 2 diabetes mellitus -Glucose checks and sliding scale insulin -Patient is out of his long-acting insulin based on med rec and unsure when he last had any's will decrease long-acting to 10 units and can uptitrate as glucoses tolerate #Paroxysmal Atrial Fibrillation -EKG: Patient rate controlled A-fib -Rate control: Continue metoprolol -Anticoagulation: Hold Eliquis due to suspected need for operative management #Hypertension - Continue home medications -Also add as needed hydralazine given significant elevations on admission #TODD -Continue home BiPAP #DVT ppx: SCDs Chula Antunez MD 10/09/24 1603 Cosigner Signature (if applicable): CC: Dr. Bernabe Reese MD; Dr. Chula Antunez MD~ Signed [facility]04-22-2025 Discharge summary [facility] Medical Records Department [address] [place] [address] Emergency Department Summary 10/09/24 MR#: [id number] Acct: [id number] Name: LANI ZARAGOZA Rep #:[id number] : 1955 69 From: Logan Downs PCP: Dr. Bernabe Reese MD Status:RE G ER Location: ED HPI History of Present Illness Chief Complaint: Wound Informant: patient Narrative Narrative: Diabetes with neuropathy worsening right heel wound over 4 to 5 weeks. Followedby wound care. He shelley Augmentin. Seen wound clinic today was sent in for admission with IV antibiotics and surgery. History of paroxysmal A-fib on Eliquis. Denies fever states she is feeling fatigued. No pain due to neuropathy. History of chronic A-fib on Eliquis last dose this morning. [facility] Medical History Chronic cellulitis Streptococcal bacteremia Hyperglycemia due to diabetes mellitus Chronic anticoagulation Fall Wears glasses Depression Anxiety Alcohol use History of ulceration Ambulates with cane Insulin dependent diabetes mellitus Arthritis Low iron Dietary restriction Former smoker Shortness of breath on exertion Leg cramps History of pain when walking History of edema Cardiology follow-up encounter History of echocardiogram Blackout Restless legs HTN (hypertension) Diabetes BiPAP (biphasic positive airway pressure) dependence Atrial fibrillation Hyperlipidemia Thyroid nodule Lower extremity neuropathy Essential (primary) hypertension Type 2 diabetes mellitus Morbid obesity Obstructive sleep apnea New onset atrial fibrillation (10/01/20) Pickwickian syndrome Bilateral leg edema Home Medications ?Medication ?Instructions ?Recorded ?Last Taken ?Type losartan 100 mg tablet 100 mg PO QHS Check with supriya souza 04/04/14 10/08/24 History doctor metformin 1,000 mg tablet 1,000 mg PO BIDCM diabetes 1 10/09/24 History amlodipine 5 mg tablet 5 mg PO QHS BP 10/01/20 04/2 07/14 History pjsjmerd-xm-maykz 300 mcg-K 60 1 tablet PO DAILY suppl emmandyn 10/01/20 05/21/23 H istory mcg-lycop 600 mcg-lutein 300 mcg tablet insulin glargine U-300 conc 300 25 unit subcut QHS sudheer zay 09/27/22 05/20/23 History unit/mL (3 mL) subcutaneous pen (Toujeo Max U-300 SoloStar) apixaban 5 mg tablet 5 mg PO BID blood thinner 10/09/24 History gabapentin 800 mg tablet 800 mg PO .COMPLEX PRN neuro paula 11/29/22 10/09/24 History pen needle, diabetic 32 gauge x #1,200 ea 05/23/23 Unk nown Rx " acetaminophen 500 mg tablet 1,000 mg PO TID 07/11/23 U nknown History (Tylenol Extra Strength) blood sugar diagnostic (OneTouch #10 ea 07/11/23 Unkno wn History Ultra Test strips) amoxicillin 875 mg-potassium 1 tab PO BID 10/09/24 History clavulanate 125 mg tablet metoprolol tartrate 50 mg tablet 50 mg PO BID 10/09/24 10/09/24 History Allergy/AdvReac Type Severity Reaction Status Date / Time ampicillin Allergy Unknown Verified 10/09/24 12:49 peanut Allergy NEEDS Verified 10/09/24 12:49 FOLLOW-UP Penicillins Allergy Unknown Verified 10/09/24 12:49 Family History Mother Heart disease Diabetes Father Heart disease Cancer Surgical History History of amputation of toe History of wisdom tooth extraction Social History housing: apartment Smoking Status: Never smoker how long ago did patient quit smokin alcohol intake: never substance use type: does not use caffeine: Yes ROS ROS ED Constitutional Constitutional ED: Reports other Details: Fatigue ; Denies chills, fever(s) or sweats Cardiovascular Cardiovascular: Denies chest pain, leg edema, palpitations or racing heartbeat Respiratory/Chest Respiratory/Chest: Denies cough, dyspnea or dyspnea on exertion Gastrointestinal Gastrointestinal: Denies abdominal pain, diarrhea, nausea or vomiting Genitourinary Genitourinary ED: Denies dysuria, hematuria or urinary frequency Musculoskeletal Musculoskeletal: Denies back pain, extremity pain or neck pain Integumentary Reports wounds; Denies rash Neurologic Neurologic: Denies headache(s), paresthesias or weakness EXAM Physical Exam Const Vital Signs: 10/09/24 12:46 10/09/24 13:26 10/09/24 13:46 Temperature 97.8 F 97.9 F Temperature Source Oral Oral Pulse Rate 79 95 Respiratory Rate 14 20 H Blood Pressure 199/80 H 141/67 H Blood Pressure Mean 119 91 Pulse Ox 98 98 98 Oxygen Delivery Method Room Air Room Air Room Air 10/09/24 14:00 10/09/24 15:00 10/09/24 15:17 Temperature 97.9 F 98.6 F 98.6 F Temperature Source Oral Oral Pulse Rate 95 95 95 Respiratory Rate 18 18 18 Blood Pressure 140/98 H 149/61 H 149/61 H Blood Pressure Mean 112 90 90 Pulse Ox 98 98 98 Oxygen Delivery Method Room Air Room Air Positive well nourished and well developed General Appearance ED: well developed and NAD HEENT Reports moist mucous membranes normocephalic and atraumatic Eyes General Eye ED: Yes normal appearance of both eyes Neck full ROM Chest Wall Chest: Negative for tenderness Resp normal respiratory effort and normal air movement Effort and Inspection: symmetric chest movement; Negative for respiratory distress Cardio regular rate and no murmurs Rhythm: abnormal rhythm Peripheral Pulses: pulses 2+ throughout GI normal to inspection, nondistended, normoactive bowel sounds and non-tender Palpation: Negative for guarding or rebound tenderness present Extremity Extremity Narrative: Full-thickness wound right medial aspect of the heel with packing approximately 4 cm in width. Malodorous. There is erythema to the plantar aspect of the foot. General Extremety ED: Negative for edema General Extremity: Negative for edema Neuro oriented x3 and no sensory deficits noted Sensorium / Orientation: awake and alert Skin no rashes or lesions noted and no wounds Sepsis Attestation Sepsis Attestation: Sepsis Ruled Out MDM MDM MDM Narrative Medical decision making narrative: Interventions / MDM: Differential diagnosis: Diabetic right heel ulcer, osteomyelitis, chronic anticoagulation, atrial fibrillation Diagnosis considered but do not suspect: Pneumonia however clinically no cough. My EKG interpretation: Rate controlled A-fib at 96, no ST or T wave changes PVCsnoted. Imaging independently reviewed and interpreted by myself: 3 views right foot x- ray: Lucencies soft tissue right heel, no signs of osteomyelitis. 1 view chest x-ray: Atelectasis versus infiltrate right lower lobe. External documents reviewed: Wound care clinic note with plans for admission andsurgery with IV antibiotics. Test considered but not ordered:N/A ED course: Patient sent in for admission for diabetic right heel ulcer. Afebrile. Sepsis labs ordered with inflammatory markers. Right foot x-ray. Penicillin allergy along with ampicillin however he is on Augmentin. Will initiate meropenem and vancomycin. 1415: I spoke with title processor Dr. Garcia, discussed patient A-fib on Eliquis. Plan for admission IV antibiotics to medicine, medical clearance before surgery to be performed. No recent wound cultures have been obtained, therefore 1 will be obtained in the ED and sent. 1530: Labs white count 11.3. Lactic acid 3.6. 1 out of 4 SIRS criteria with heart rate. Chest x-rayposs pneumonia however no cough or concerns of this. Elevated inflammatory markers with CRP of 141,ESR of 30. Foot x-ray with no signs of osteomyelitis. I spoke with hospitalist For admission to the medical floor. Re-evaluation: stable Disposition discussed with patient/family/significant other: Patient Case discussed with consulting clinician: Hospitalist, podiatry This note was generated with [employer] dictation software. It may contain incorrectwords, spelling, and punctuation that were not noted in checking the note beforesigning. Lab Data Attestation: I reviewed the patient's lab results. Labs: Laboratory Results - last 24 hr 10/09/24 10/09/24 10/09/24 13:40 13:42 13:47 WBC 11.3 H RBC 4.78 Hgb 12.8 L Hct 38.6 L MCV 80.8 MCH 26.8 L MCHC 33.2 RDW Std Deviation 37.2 RDW Coeff of Jada 12.8 Plt Count 243 MPV 9.8 Immature Gran % (Auto) 0.400 Neut % (Auto) 82.8 H Lymph % (Auto) 9.2 L Navarro % (Auto) 6.5 Eos % (Auto) 0.7 Baso % (Auto) 0.4 Absolute Neuts (auto) 9.4 H Absolute Lymphs (auto) 1.04 Nucleated RBC % 0 ESR 30 H PT Cancelled INR Cancelled APTT Cancelled Sodium 134 Potassium 3.9 Chloride 93 L Carbon Dioxide 27.8 Anion Gap 14 BUN 8 Creatinine 0.81 Est GFR (MDRD) Non-Af 95 BUN/Creatinine Ratio 9.6 L Glucose 384 H Lactic Acid 3.6 H* Calcium 9.0 Total Bilirubin 0.88 AST 18 ALT 11 Alkaline Phosphatase 104 C-React Prot Ext Range 141.00 H Total Protein 7.3 Albumin 3.5 Globulin 3.8 Albumin/Globulin Ratio 0.9 Blood Type A NEGATIVE Antibody Screen NEGATIVE 10/09/24 14:54 WBC RBC Hgb Hct MCV MCH MCHC RDW Std Deviation RDW Coeff of Jada Plt Count MPV Immature Gran % (Auto) Neut % (Auto) Lymph % (Auto) Navarro % (Auto) Eos % (Auto) Baso % (Auto) Absolute Neuts (auto) Absolute Lymphs (auto) Nucleated RBC % ESR PT 16.6 H INR 1.3 APTT 32.3 Sodium Potassium Chloride Carbon Dioxide Anion Gap BUN Creatinine Est GFR (MDRD) Non-Af BUN/Creatinine Ratio Glucose Lactic Acid Calcium Total Bilirubin AST ALT Alkaline Phosphatase C-React Prot Ext Range Total Protein Albumin Globulin Albumin/Globulin Ratio Blood Type Antibody Screen Radiography Diagnostic Testing: Clinical Impression(s) from Imaging Studies Chest X-Ray 10/09/24 13:45 IMPRESSION: Right basilar atelectasis or pneumonia. Reading Location: [facility] Foot X-Ray 10/09/24 13:45 IMPRESSION: No obvious radiographic evidence of osteomyelitis. However, if clinical suspicion remains high, further evaluation with 3 phase bone scan or MRI is recommended. Reading Location: [facility] Discharge Plan Triage Chief Complaint: Wound ED Provider: Logan Gifford Dx/Rx/DC Orders Clinical Impression: Diabetic ulcer of right heel, Atrial fibrillation, Chronic anticoagulation, Acidosis, lactic Prescriptions: No Action insulin glargine U-300 conc [Toujeo Max U-300 SoloStar] 300 unit/mL (3 mL) insulin pen 25 unit subcut QHS Patient Comments: pt states he is out of [facility] and unsure when he last had any (DME) OneTouch Ultra Test Strip See Rx Instructions .ROUTE .MEDSUPPLY Qty: 10 Patient Comments: Test blood sugar once daily. Rx Instructions: As directed acetaminophen [Tylenol Extra Strength] 500 mg tablet 1,000 mg PO TID metformin 1,000 MG tablet 1,000 mg PO BIDCM losartan 100 MG tablet 100 mg PO QHS amlodipine 5 MG tablet 5 mg PO QHS [id number]-[id number]-[id number] 1 EACH tablet 1 tablet PO DAILY apixaban 5 mg tablet 5 mg PO BID gabapentin 800 mg tablet 800 mg PO .COMPLEX PRN (Reason: neuropathy) Rx Instructions: 800 mg orally 3-4 times daily PRN; (DME) pen needle, diabetic 32 gauge x 5/32" needle See Rx Instructions .Route Qty: 1200 0RF Rx Instructions: As directed metoprolol tartrate 50 mg tablet 50 mg PO BID amoxicillin-pot clavulanate 875-125 mg tablet 1 tab PO BID Primary Care Provider: Bernabe Reese Referrals: Bernabe Reese MD [Primary Care Provider] - Print Language: Iraqi Disposition Disposition: Acute Care Hospital [facility] What to do if you have Problems For any increased pain, shortness of breath, bleeding, nausea or vomiting, chestpain, or any unexpected problems, contact your Primary Care Provider. Call [facility] ([phone]) or report tothe closest Emergency Room. Call 911 if necessary. 10/09/24 1551 Cosigner Signature (if applicable): CC: Dr. Bernabe Reese MD ~ Signed [facility]04-22-2025 Radiology Diagnostic study note [facility] [address] [place] [address] Foot min 3 Views MR#: [id number] Acct: [id number] Name: LANI ZARAGOZA Rep #: [id number] : 1955 M 69 From: Dasha Gifford MD PCP: Dr. Bernabe Reese MD Status: RE G ER Study:Foot min 3 Views Date of Exam: Exam# [id number] Ordering Dr: Logan Gifford DO EXAM: XR Right Foot Complete, 3 or More Views CLINICAL INDICATION: WOUND TECHNIQUE: Frontal, lateral and oblique views of the right foot. COMPARISON: No relevant prior studies available. FINDINGS: BONES/JOINTS: No obvious radiographic evidence of osteomyelitis. However, if clinical suspicion remains high, further evaluation with 3 phase bone scan or MRI is recommended. Moderate degenerative change of the intertarsal joints. No acute fracture. No dislocation. No erosive changes to the osseous structures. SOFT TISSUES: Soft tissue swelling. No radiopaque foreign body. OTHER FINDINGS: Hammertoes. RAD/Foot min 3 Views IMPRESSION: No obvious radiographic evidence of osteomyelitis. However, if clinical suspicion remains high, further evaluation with 3 phase bone scan or MRI is recommended. Reading Location: [facility] CC: Dr. Bernabe Reese MD; Dr. Logan Gifford DO ~ Under Baster: Signed [facility]04-22-2025 Radiology Diagnostic study note [facility] Imaging Services [address] [place] [id number] Chest 1 View (Portable) MR#: [id number] Acct: [id number] Name: LANI ZARAGOZA Rep #: [id number] : 1955 M 69 From: Dasha Gifford MD PCP: Dr. Bernabe Reese MD Status: RE G ER Study:Chest 1 View (Portable) Date of Exam: 10/09/24 Exam# [id number] Ordering Dr: Logan Gifford DO EXAM: XR Chest, 1 View CLINICAL INDICATION: PREOP TECHNIQUE: Frontal view of the chest. COMPARISON: No relevant prior studies available. FINDINGS: LUNGS AND PLEURAL SPACES: Right basilar atelectasis or pneumonia. No pneumothorax. HEART: Unremarkable. No cardiomegaly. MEDIASTINUM: Unremarkable. Normal mediastinal contour. BONES/JOINTS: Unremarkable. No acute fracture. RAD/Chest 1 View (Portable) IMPRESSION: Right basilar atelectasis or pneumonia. Reading Location: [facility] CC: Dr. Bernabe Reese MD; Dr. Logan Gifford DO ~ Under Baster: Signed [facility]04-22-2025 Discharge summary Author Logan Gifford [facility] Note Date/Time 2024 3:5 1pm [facility] Medical Records Department [address] [place] [address] Emergency Department Summary 10/09/24 MR#: [id number] Acct: [id number] Name: LANI ZARAGOZA Rep #:[id number] : 1955 69 From: Logan Downs PCP: Dr. Bernabe Reese MD Status:RE G ER Location: ED HPI History of Present Illness Chief Complaint: Wound Informant: patient Narrative Narrative: Diabetes with neuropathy worsening right heel wound over 4 to 5 weeks. Followedby wound care. He is on Augmentin. Seen wound clinic today was sent in for admission with IV antibiotics and surgery. History of paroxysmal A-fib on Eliquis. Denies fever states she is feeling fatigued. No pain due to neuropathy. History of chronic A- fib on Eliquis last dose this morning. [facility] Medical History Chronic cellulitis Streptococcal bacteremia Hyperglycemia due to diabetes mellitus Chronic anticoagulation Fall Wears glasses Depression Anxiety Alcohol use History of ulceration Ambulates with cane Insulin dependent diabetes mellitus Arthritis Low iron Dietary restriction Former smoker Shortness of breath on exertion Leg cramps History of pain when walking History of edema Cardiology follow-up encounter History of echocardiogram Blackout Restless legs HTN (hypertension) Diabetes BiPAP (biphasic positive airway pressure) dependence Atrial fibrillation Hyperlipidemia Thyroid nodule Lower extremity neuropathy Essential (primary) hypertension Type 2 diabetes mellitus Morbid obesity Obstructive sleep apnea New onset atrial fibrillation (10/01/20) Pickwickian syndrome Bilateral leg edema Home Medications ?Medication ?Instructions ?Recorded ?Last Taken ?Type losartan 100 mg tablet 100 mg PO QHS Check with supriya souza 04/04/14 10/08/24 History doctor metformin 1,000 mg tablet 1,000 mg PO BIDCM diabetes 1 10/09/24 History amlodipine 5 mg tablet 5 mg PO QHS BP 10/01/20/07/14 History ehpxsyvl-gf-cxpew 300 mcg-K 60 1 tablet PO DAILY suppl emetn 10/01/20 05/21/23 H istory mcg-lycop 600 mcg-lutein 300 mcg tablet insulin glargine U-300 conc 300 25 unit subcut QHS sudheer zay 09/27/22 05/20/23 History unit/mL (3 mL) subcutaneous pen (Toujeo Max U-300 SoloStar) apixaban 5 mg tablet 5 mg PO BID blood thinner 10/09/24 History gabapentin 800 mg tablet 800 mg PO .COMPLEX PRN neuro paula 11/29/22 10/09/24 History pen needle, diabetic 32 gauge x #1,200 ea 05/23/23 Unk nown Rx " acetaminophen 500 mg tablet 1,000 mg PO TID 07/11/23 U nknown History (Tylenol Extra Strength) blood sugar diagnostic (OneTouch #10 ea 07/11/23 Unkno wn History Ultra Test strips) amoxicillin 875 mg-potassium 1 tab PO BID 10/09/24 History clavulanate 125 mg tablet metoprolol tartrate 50 mg tablet 50 mg PO BID 10/09/24 10/09/24 History Allergy/AdvReac Type Severity Reaction Status Date / Time ampicillin Allergy Unknown Verified 10/09/24 12:49 peanut Allergy NEEDS Verified 10/09/24 12:49 FOLLOW-UP Penicillins Allergy Unknown Verified 10/09/24 12:49 Family History Mother Heart disease Diabetes Father Heart disease Cancer Surgical History History of amputation of toe History of wisdom tooth extraction Social History housing: apartment Smoking Status: Never smoker how long ago did patient quit smokin alcohol intake: never substance use type: does not use caffeine: Yes ROS ROS ED Constitutional Constitutional ED: Reports other Details: Fatigue ; Denies chills, fever(s) or sweats Cardiovascular Cardiovascular: Denies chest pain, leg edema, palpitations or racing heartbeat Respiratory/Chest Respiratory/Chest: Denies cough, dyspnea or dyspnea on exertion Gastrointestinal Gastrointestinal: Denies abdominal pain, diarrhea, nausea or vomiting Genitourinary Genitourinary ED: Denies dysuria, hematuria or urinary frequency Musculoskeletal Musculoskeletal: Denies back pain, extremity pain or neck pain Integumentary Reports wounds; Denies rash Neurologic Neurologic: Denies headache(s), paresthesias or weakness EXAM Physical Exam Const Vital Signs: 10/09/24 12:46 10/09/24 13:26 10/09/24 13:46 Temperature 97.8 F 97.9 F Temperature Source Oral Oral Pulse Rate 79 95 Respiratory Rate 14 20 H Blood Pressure 199/80 H 141/67 H Blood Pressure Mean 119 91 Pulse Ox 98 98 98 Oxygen Delivery Method Room Air Room Air Room Air 10/09/24 14:00 10/09/24 15:00 10/09/24 15:17 Temperature 97.9 F 98.6 F 98.6 F Temperature Source Oral Oral Pulse Rate 95 95 95 Respiratory Rate 18 18 18 Blood Pressure 140/98 H 149/61 H 149/61 H Blood Pressure Mean 112 90 90 Pulse Ox 98 98 98 Oxygen Delivery Method Room Air Room Air Positive well nourished and well developed General Appearance ED: well developed and NAD HEENT Reports moist mucous membranes normocephalic and atraumatic Eyes General Eye ED: Yes normal appearance of both eyes Neck full ROM Chest Wall Chest: Negative for tenderness Resp normal respiratory effort and normal air movement Effort and Inspection: symmetric chest movement; Negative for respiratory distress Cardio regular rate and no murmurs Rhythm: abnormal rhythm Peripheral Pulses: pulses 2+ throughout GI normal to inspection, nondistended, normoactive bowel sounds and non-tender Palpation: Negative for guarding or rebound tenderness present Extremity Extremity Narrative: Full-thickness wound right medial aspect of the heel with packing approximately 4 cm in width. Malodorous. There is erythema to the plantar aspect of the foot. General Extremety ED: Negative for edema General Extremity: Negative for edema Neuro oriented x3 and no sensory deficits noted Sensorium / Orientation: awake and alert Skin no rashes or lesions noted and no wounds Sepsis Attestation Sepsis Attestation: Sepsis Ruled Out MDM MDM MDM Narrative Medical decision making narrative: Interventions / MDM: Differential diagnosis: Diabetic right heel ulcer, osteomyelitis, chronic anticoagulation, atrial fibrillation Diagnosis considered but do not suspect: Pneumonia however clinically no cough. My EKG interpretation: Rate controlled A-fib at 96, no ST or T wave changes PVCsnoted. Imaging independently reviewed and interpreted by myself: 3 views right foot x- ray: Lucencies soft tissue right heel, no signs of osteomyelitis. 1 view chest x-ray: Atelectasis versus infiltrate right lower lobe. External documents reviewed: Wound care clinic note with plans for admission andsurgery with IV antibiotics. Test considered but not ordered:N/A ED course: Patient sent in for admission for diabetic right heel ulcer. Afebrile. Sepsis labs ordered with inflammatory markers. Right foot x-ray. Penicillin allergy along with ampicillin however he is on Augmentin. Will initiate meropenem and vancomycin. 1415: I spoke with title processor Dr. Garcia, discussed patient A-fib on Eliquis. Plan for admission IV antibiotics to medicine, medical clearance before surgery to be performed. No recent wound cultures have been obtained, therefore 1 will be obtained in the ED and sent. 1530: Labs white count 11.3. Lactic acid 3.6. 1 out of 4 SIRS criteria with heart rate. Chest x-ray poss pneumonia however no cough or concerns of this. Elevated inflammatory markers with CRP of 141, ESR of 30. Foot x-ray with no signs of osteomyelitis. I spoke with hospitalist For admission to the medical floor. Re-evaluation: stable Disposition discussed with patient/family/significant other: Patient Case discussed with consulting clinician: Hospitalist, podiatry This note was generated with [employer] dictation software. It may contain incorrectwords, spelling, and punctuation that were not noted in checking the note beforesigning. Lab Data Attestation: I reviewed the patient's lab results. Labs: Laboratory Results - last 24 hr 10/09/24 10/09/24 10/09/24 13:40 13:42 13:47 WBC 11.3 H RBC 4.78 Hgb 12.8 L Hct 38.6 L MCV 80.8 MCH 26.8 L MCHC 33.2 RDW Std Deviation 37.2 RDW Coeff of Jada 12.8 Plt Count 243 MPV 9.8 Immature Gran % (Auto) 0.400 Neut % (Auto) 82.8 H Lymph % (Auto) 9.2 L Navarro % (Auto) 6.5 Eos % (Auto) 0.7 Baso % (Auto) 0.4 Absolute Neuts (auto) 9.4 H Absolute Lymphs (auto) 1.04 Nucleated RBC % 0 ESR 30 H PT Cancelled INR Cancelled APTT Cancelled Sodium 134 Potassium 3.9 Chloride 93 L Carbon Dioxide 27.8 Anion Gap 14 BUN 8 Creatinine 0.81 Est GFR (MDRD) Non-Af 95 BUN/Creatinine Ratio 9.6 L Glucose 384 H Lactic Acid 3.6 H* Calcium 9.0 Total Bilirubin 0.88 AST 18 ALT 11 Alkaline Phosphatase 104 C-React Prot Ext Range 141.00 H Total Protein 7.3 Albumin 3.5 Globulin 3.8 Albumin/Globulin Ratio 0.9 Blood Type A NEGATIVE Antibody Screen NEGATIVE 10/09/24 14:54 WBC RBC Hgb Hct MCV MCH MCHC RDW Std Deviation RDW Coeff of Jada Plt Count MPV Immature Gran % (Auto) Neut % (Auto) Lymph % (Auto) Navarro % (Auto) Eos % (Auto) Baso % (Auto) Absolute Neuts (auto) Absolute Lymphs (auto) Nucleated RBC % ESR PT 16.6 H INR 1.3 APTT 32.3 Sodium Potassium Chloride Carbon Dioxide Anion Gap BUN Creatinine Est GFR (MDRD) Non-Af BUN/Creatinine Ratio Glucose Lactic Acid Calcium Total Bilirubin AST ALT Alkaline Phosphatase C-React Prot Ext Range Total Protein Albumin Globulin Albumin/Globulin Ratio Blood Type Antibody Screen Radiography Diagnostic Testing: Clinical Impression(s) from Imaging Studies Chest X-Ray 10/09/24 13:45 IMPRESSION: Right basilar atelectasis or pneumonia. Reading Location: [facility] Foot X-Ray 10/09/24 13:45 IMPRESSION: No obvious radiographic evidence of osteomyelitis. However, if clinical suspicion remains high, further evaluation with 3 phase bone scan or MRI is recommended. Reading Location: [facility] Discharge Plan Triage Chief Complaint: Wound ED Provider: Logan Gifford Dx/Rx/DC Orders Clinical Impression: Diabetic ulcer of right heel, Atrial fibrillation, Chronic anticoagulation, Acidosis, lactic Prescriptions: No Action insulin glargine U-300 conc [Toujeo Max U-300 SoloStar] 300 unit/mL (3 mL) insulin pen 25 unit subcut QHS Patient Comments: pt states he is out of Toujeo and unsure when he last had any (DME) OneTouch Ultra Test Strip See Rx Instructions .ROUTE .MEDSUPPLY Qty: 10 Patient Comments: Test blood sugar once daily. Rx Instructions: As directed acetaminophen [Tylenol Extra Strength] 500 mg tablet 1,000 mg PO TID metformin 1,000 MG tablet 1,000 mg PO BIDCM losartan 100 MG tablet 100 mg PO QHS amlodipine 5 MG tablet 5 mg PO QHS [id number] 1 EACH tablet 1 tablet PO DAILY apixaban 5 mg tablet 5 mg PO BID gabapentin 800 mg tablet 800 mg PO .COMPLEX PRN (Reason: neuropathy) Rx Instructions: 800 mg orally 3-4 times daily PRN; (DME) pen needle, diabetic 32 gauge x 5/32" needle See Rx Instructions .Route Qty: 1200 0RF Rx Instructions: As directed metoprolol tartrate 50 mg tablet 50 mg PO BID amoxicillin-pot clavulanate 875-125 mg tablet 1 tab PO BID Primary Care Provider: Bernabe Reese Referrals: Bernabe Reese MD [Primary Care Provider] - Print Language: Iraqi Disposition Disposition: Acute Care Hospital [facility] What to do if you have Problems For any increased pain, shortness of breath, bleeding, nausea or vomiting, chestpain, or any unexpected problems, contact your Primary Care Provider. Call [facility] ([phone]) or report to the closest Emergency Room. Call 911 if necessary. 10/09/24 1551 <Electronically signed by Logan Downs> Cosigner Signature (if applicable): CC: Dr. Bernabe Reese MD ~ Signed [facility] Work Phone: 1(162) 681-256704-22-2025 Evaluation note* Diagnosis Onset Date Resolution Status Admit Date Iron deficiency anemia acute Ap ril 2024 10:30am Other specified peripheral vascular diseases acute October 09 10:30am Type 2 diabetes mellitus wit h diabetic polyneuropathy acute October 092024 10:30am Chronic ulcer of left foot w ith fat layer exposed chronic October 09 10:30am Non-pressure chronic ulcer o f other part of right foot with fat layer exposed chronic October 09 10:30am Diabetic ulcer of right heel acute 2024 3:52pm [facility] Work Phone: 1(405) 110-725704-22-2025 Evaluation note* Diagnosis Onset Date Resolution Status Admit Date Iron deficiency anemia acute Ap ril 2024 10:30am Other specified peripheral vascular diseases acute October 09 10:30am Chronic ulcer of left foot w ith fat layer exposed chronic October 09 10:30am Non-pressure chronic ulcer o f other part of right foot with fat layer exposed chronic October 09 10:30am Type 2 diabetes mellitus wit h diabetic polyneuropathy inactive October 092024 10:30am Acute osteomyelitis of right calcaneus acute 2024 3:52pm Bacteremia due to coagulase-negative Staphylococcus acute 2024 3:52pm Diabetic ulcer of right heel acute 2024 3:52pm Other acute osteomyelitis, r ight ankle and foot acute 2024 3:52pm 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 Work Phone: 1(984) 276-865604-22-2025 Evaluation note* Diagnosis Onset Date Resolution Status Admit Date Iron deficiency anemia acute Ap ril 2024 10:30am Other specified peripheral vascular diseases acute October 09 10:30am Chronic ulcer of left foot w ith fat layer exposed chronic October 09 10:30am Non-pressure chronic ulcer o f other part of right foot with fat layer exposed chronic October 09 10:30am Type 2 diabetes mellitus wit h diabetic polyneuropathy inactive October 092024 10:30am Acute osteomyelitis of right calcaneus acute 2024 3:52pm Bacteremia due to coagulase-negative Staphylococcus acute 2024 3:52pm Diabetic ulcer of right heel acute 2024 3:52pm Other acute osteomyelitis, r ight ankle and foot acute 2024 3:52pm 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 October 09 3:52pm Type 2 diabetes mellitus wit h diabetic polyneuropathy inactive October 092024 3:52pm Acute osteomyelitis of right calcaneus acute November 13, 2024 1 0:30am 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 November 13 10:30am Acute osteomyelitis of right calcaneus acute December 04, 2024 10:00am Encounter for other orthoped ic aftercare acute December 04, 2024 10:00am Non-pressure chronic ulcer o f other part of right foot with fat layer exposed chronic December 04 10:00am 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 Work Phone: 1(503) 145-388804-22-2025 Evaluation note* Diagnosis Onset Date Resolution Status Admit Date Iron deficiency anemia acute Ap 2024 10:30am Other specified peripheral vascular diseases acute October 09 10:30am Chronic ulcer of left foot w ith fat layer exposed chronic October 09 10:30am Non-pressure chronic ulcer o f other part of right foot with fat layer exposed chronic October 09 10:30am Type 2 diabetes mellitus wit h diabetic polyneuropathy inactive October 092024 10:30am Acute osteomyelitis of right calcaneus acute 2024 3:52pm Bacteremia due to coagulase-negative Staphylococcus acute 2024 3:52pm Diabetic ulcer of right heel acute 2024 3:52pm Other acute osteomyelitis, r ight ankle and foot acute 2024 3:52pm 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 October 09 3:52pm Type 2 diabetes mellitus wit h diabetic polyneuropathy inactive October 092024 3:52pm Acute osteomyelitis of right calcaneus acute November 13, 2024 1 0:30am 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 Work Phone: 1(901) 375-585304-15-2025 Evaluation note* Diagnosis Onset Date Resolution Status Admit Date Iron deficiency anemia acute Ap 2024 10:15am Other specified peripheral vascular diseases acute October 02 10:15am Type 2 diabetes mellitus wit h diabetic polyneuropathy acute October 022024 10:15am Chronic ulcer of left foot w ith fat layer exposed chronic October 02 10:15am Non-pressure chronic ulcer o f other part of right foot with fat layer exposed chronic October 02 10:15am [facility] Work Phone: 1(824) 847-879112-04-2023 Progress note Author Ralph Mancini [facility] May 23, 2023 6:40pm Note Date/Time May 23, 2023 6 :29pm [facility] Medical Records Department [address] [place] [address] Progress Note 05/23/231822 MR#: [id number] Acct: [id number] Name: LANI ZARAGOZA Rep #:[id number] : 1955 67 From: Ralph barreto DPM PCP: Dr. Bernabe Reese MD Status:AD M IN [id number] Subjective Subjective Patient seen and evaluated this evening with bilateral foot dependent in chair. He states that he is feeling better and has finished his IV antibiotic and is going home tonight. Objective Data Objective Data Vital Signs: Vital Signs Temp Pulse Resp BP Pulse Ox O2 Del Method FiO2 98.2 F 84 18 131/61 H 96 Room Air 21 05/23/23 09:00 05/23/23 09:00 05/23/23 09:00 05/23/23 09:00 05/23/23 10:30 05/23/23 09:00 05/23/23 05:05 Oxygen Delivery Method Room Air Weight: 168.51 kg Body Mass Index (BMI) 56.5 Intake & Output: Intake and Output for Last 24 Hours 05/21/23 05/22/23 05/23/23 23:59 23:59 23:59 Intake Total 590 / 940 2560 / 2860 1130 / 1130 Output Total 500 / 500 Balance 590 / 940 2060 / 2360 1130 / 1130 Lab / Micro Data 05/23/23 07:00 05/23/23 07:00 Labs: Laboratory Results - last 24 hr 05/22/23 19:30: Vancomycin Trough 20.0 H 05/22/23 21:29: POC Glucose 239 H 05/23/23 07:00: WBC 10.1, RBC 4.82, Hgb 12.5 L, Hct 40.5, MCV 84.0, MCH 25.9 L, MCHC 30.9 L, RDW Std Deviation 42.7, RDW Coeff of Jada 14.1, Plt Count 209, MPV 9.7, Immature Gran % (Auto) 0.500, Neut % (Auto) 67.7, Lymph % (Auto) 21.5, Navarro% (Auto) 6.8, Eos % (Auto) 3.0, Baso % (Auto) 0.5, Absolute Neuts (auto) 6.8, Absolute Lymphs (auto) 2.17, Nucleated RBC % 0, Sodium 137, Potassium 3.8, Chloride 102, Carbon Dioxide 32.0, Anion Gap 3 L, BUN 20 H, Creatinine 0.82, Estim Creat Clear Calc 83.41, Est GFR (MDRD) Af Amer 121, Est GFR (MDRD) Non-Af 100, BUN/Creatinine Ratio 24.5 H, Glucose 166 H, Calcium 8.6 05/23/23 07:56: POC Glucose 153 H 05/23/23 11:53: POC Glucose 268 H 05/23/23 16:42: POC Glucose 175 H Micro: Microbiology 05/21/23 13:25 Blood Culture (Wb) - Anticubital Right Blood Culture - Preliminary No growth in 48 hours. 05/21/23 15:05 Urine, Clean Catch Urine Culture - Final Mixed Gram Positive Organisms 05/21/23 13:15 Nasal Secretion SARS-CoV-2 & FLU Antigen (Rapid) - Final Physical Exam Const alert, oriented x3, no apparent distress and well nourished General Appearance: cooperative HEENT normocephalic Eyes General Eye: normal appearance of both eyes Neck General: normal visual inspection Lymph Lymphatic: no lymphadenopathy noted Resp normal respiratory effort and normal air movement Cardio regular rate and regular rhythm Extremity Extremity Narrative: Left lower extremity: DP and PT pulses palpable with adequate capillary fill time to the digits. There is +3 pitting edema noted to the lower extremity withbrawny discoloration of the lower extremity and hemosiderin deposition of the skin consistent with chronic venous stasis. Right lower extremity: DP and PT pulses palpable with adequate capillary fill time to digits. There is +3 pitting edema noted to lower extremity with resolving erythema. There is also brawny discoloration of the lower extremity and hemosiderin deposition of the skin consistent with chronic venous stasis. Muscle strength 5 of 5 and age-appropriate bilateral. No pain to palpation of the lower extremity bilateral. Range of motion of the ankle is decreased in dorsiflexion bilateral. Range of motion of the first metatarsophalangeal joint is decreased bilateral. Skin no jaundice Neuro oriented x3 and moves all extremities Assessment & Plan Assessment/Plan (1) Cellulitis of right leg: (2) Venous insufficiency (chronic) (peripheral): (3) Type 2 diabetes mellitus with diabetic polyneuropathy: QUALIFIERS: Diabetes mellitus watermaster insulin use: unspecified watermaster insulin use status Qualified Code(s): E11.42 - Type 2 diabetes mellitus with diabetic polyneuropathy (4) Bilateral leg edema: (5) Morbid obesity: PLAN: Plan Patient seen and evaluated I reviewed diagnostic imaging of the right lower extremity. Radiographs did demonstrate diffuse soft tissue swelling with extensive arthritic changes of thefoot. No evidence of soft tissue gas or osteomyelitis. His erythema of the right lower extremity is improving on IV antibiotic, clindamycin 900 mg. 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 Discussed with him continued elevation of the lower extremities with use of Tubigrip compression to aid in edema control. Discussed with him this is essential for decreasing lower extremity edema in addition to discouraging recidivism of his cellulitis. Discussed transition towards compression stockingfull-time when lower extremity edema is under control. Discussed proper diabetic diet to ensure tight glycemic control. Also discussedhealthy lifestyle for weight management/weight reduction. Discussed to not ambulate barefoot and to check feet daily. Encouraged shoe gear to be worn at all times. Encouraged continuing with excellence specialist for diabetic care upon discharge. Medicine team currently following for medical management, they are greatly appreciated. Infectious disease following for management of antibiotics, they are greatly appreciated. Infectious disease plan to discharge on oral clindamycin. Patient is set to be discharged home tonight on oral antibiotics. He will follow-up with primary care following discharge and is recommended to continue to follow with [facility] specialist for continued diabetic care and lower extremity care. He is agreeable to this. Ralph Mancini Jr. D.P.M. [facility] [phone] 05/23/23 1840 <Electronically signed by Ralph Mancini DPM> Ralph Mckeon Cosigncharbel Signature (if applicable): CC: ~ Signed [facility] Work Phone: 1([phone]) 657-697112-04-2023 Consult note Author Nakul Fowler [facility] May 23, 2023 1:53pm Note Date/Time May 23, 2023 1 :53pm [facility] Medical Records Department [address] [place] [address] Counseling Note - Pharmacy 05/23/23 1353 MR#: [id number] Acct: [id number] Name: LANI ZARAGOZA Rep #:[id number] : 1955 67 From: Nakul Fowler PCP: Dr. Bernabe Reese MD Status:AD M IN [place] [facility] [place] [id number] [place] [facility] has performed discharge medication reconciliation and counseling for this patient. The patient's discharge medication list was reviewed for discrepancies and discrepancies were resolved. The patient was counseled on the following discharge medications and changes in medications for homegoing were reviewed. The Reason for Use, instructions for use, and potential side effects were reviewed for all new medications. The patient's questions regarding all of their medications were answered. 1. Clindamycin 900 mg PO Q8H x 8 days 2. Furosemide 40 mg PO daily The patient was able to verbally demonstrate an understanding of their dischargemedications. Medications at Discharge Home Medications losartan 100 mg tablet 100 mg PO QHS Check with primary doctor 04/04/14 metformin 1,000 mg tablet 1,000 mg PO BIDCM diabetes 04/04/14 amlodipine 5 mg tablet 5 mg PO QHS BP 10/01/20 [id number]-[id number] 300 mcg-K 60 mcg-lycop 600 mcg-lutein 300 mcg tablet 1 tablet PO DAILY supplemetn 10/01/20 metoprolol succinate 100 mg tablet,extended release 24 hr (Toprol XL) 100 mg PO QHS Check with primary doctor 12/03/20 insulin glargine U-300 conc 300 unit/mL (3 mL) subcutaneous pen (Toujeo Max U- 300 SoloStar) 55 unit subcut QHS diabetes 09/27/22 apixaban 5 mg tablet 5 mg PO BID blood thinner 11/29/22 gabapentin 800 mg tablet 800 mg PO .QID neuropathy 11/29/22 clindamycin HCl 300 mg capsule (Cleocin HCl) 900 mg (3 x 300 mg) PO Q8H #72 caps05/23/23 furosemide 40 mg tablet (Lasix) 40 mg PO DAILY #30 tabs 05/23/23 05/23/23 1353 <Electronically signed by Nakul boston> Date _ Nakul Patricio Signature (if applicable): Date CC: ~ Signed [facility] Work Phone: 1(793) 918-513712-04-2023 Discharge summary Author Julee Spain [facility] May 23, 2023 1:30pm Note Date/Time May 23, 2023 1 :19pm [facility] Medical Records Department [address] [place] [address] Discharge Summary 05/23/23 1318 MR#: [id number] Acct: [id number] Name: LANI ZARAGOZA Rep #:[id number] : 1955 67 From: Julee Spain DO PCP: Dr. Bernabe Reese MD Status:AD M IN Location: [facility] [id number] Providers Date of Admission: 05/21/23 Date of Discharge: 05/23/23 Primary Care Physician: Dr. Bernabe Reese MD Consultations 05/21/23 17:49 Consult: Infectious Disease Routine Consulting Provider: Gregorio Mccarthy Reason for Consult: RLE cellulitis, concern for OM EMERGENT Consult: No MD Notified: Yes Date Notified: 05/22/23 Time Notified: 20:24 Method of Notification: Answering Service 05/21/23 23:59 Consult: Podiatry Routine Consulting Provider: Albert Root Reason for Consult: rle cellulitis r/o om EMERGENT Consult: No MD Notified: Yes Date Notified: 05/22/23 Time Notified: 07:20 Method of Notification: Text Reason For Visit: HYPOXIA, WEAKNESS Diagnosis Discharge Diagnosis (1) Cellulitis of right leg: Status: Acute Code(s): L03.115 - Cellulitis of right lower limb Plan Exertional hypoxia -COVID and flu are negative -Patient has no respiratory symptoms so we will defer acute respiratory panel atthis time -Currently on room air -Will check room air blood gas as I do suspect patient may have obesity hypoventilation syndrome with a BMI of 56.5 -He is chronically anticoagulated due to history of atrial fibrillation therefore I doubt he has any VTE -Echocardiogram in November that showed 65% EF, inability to assess folic dysfunction due to poor study, mildly enlarged left atrium with no significant valvular disease--> unfortunately right ventricular systolic pressure was unableto be assessed -Will give Lasix 40 mg IV push twice daily--patient is not on any chronic diuretic however with his size and sleep apnea I do suspect he probably has someright ventricular elevated pressures and may benefit from diuresis. Right lower extremity cellulitis with history of left foot osteomyelitis -Continue vancomycin but discontinue ceftriaxone and Flagyl and replace with meropenem -Patient does have allergy to penicillins but is unclear -Cultures pending -No obvious osseous evidence of osteomyelitis on imaging at this time -Podiatry and ID consultation Fracture of the medial base of the first proximal phalanx without displacement -Podiatry consult was pending -I suspect at the very least he will need a walking shoe DM-2 -Poorly controlled with recent hemoglobin A1c of 10.2 -Continue home insulin but increase basal insulin to 30 units twice daily from 45 units nightly -Increase prandial insulin from 10 to 16 units 3 times daily -SSI -Accu-Cheks as ordered -Will hold metformin while hospitalized -It is imperative for healing but he does improve glycemic control Hypertension -Hold losartan for now as blood pressure was on the borderline when he came in -Continue metoprolol -Restart home nocturnal amlodipine Diabetic neuropathy -Continue home gabapentin Paroxysmal atrial fibrillation -Continue home apixaban -Continue home beta-rosie TODD -Continue home nocturnal BiPAP Morbid obesity -BMI is 56.5 -Recommend weight loss -Complicates treatment, prognosis, outcomes DVT prophylaxis -Continue home apixaban CODE STATUS -Full code Medications at Discharge Home Medications losartan 100 mg tablet 100 mg PO QHS Check with primary doctor 04/04/14 metformin 1,000 mg tablet 1,000 mg PO BIDCM diabetes 04/04/14 amlodipine 5 mg tablet 5 mg PO QHS BP 10/01/20 [id number]-ng-vhsqi 300 mcg-K 60 mcg-lycop 600 mcg-lutein 300 mcg tablet 1 tablet PO DAILY supplemetn 10/01/20 metoprolol succinate 100 mg tablet,extended release 24 hr (Toprol XL) 100 mg PO QHS Check with primary doctor 12/03/20 insulin glargine U-300 conc 300 unit/mL (3 mL) subcutaneous pen (Toujeo Max U- 300 SoloStar) 55 unit subcut QHS diabetes 09/27/22 apixaban 5 mg tablet 5 mg PO BID blood thinner 11/29/22 gabapentin 800 mg tablet 800 mg PO .QID neuropathy 11/29/22 clindamycin HCl 300 mg capsule (Cleocin HCl) 900 mg (3 x 300 mg) PO Q8H #72 caps05/23/23 furosemide 40 mg tablet (Lasix) 40 mg PO DAILY #30 tabs 05/23/23 Hospital Course Operations None Summary of Care Provided Minutes Spent on Discharge: 38 Hospital Course: Mr. Zaragoza is a super morbidly obese white male who presented to the emergency department at [facility] on 05/21/2023 with shortness of breath, generalized weakness, and worsening right lower extremity edema. Upon presentation he had no conversational dyspnea and did not appear to be in any acute distress. He was satting well on room air with no increased work of breathing at time of evaluation the emergency department. 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 He reported over the last few days prior to presentation he had felt generally weaker than typical and had increased shortness of breath with exertion. He also noted that his right lowerleg had become more red and swollen. He denied any fever or chills and had beenusing a cane to ambulate around the house. He did indicate he had been more sedentary over the past few days due to right lower extremity swelling and pain. He denied any cough or sputum and indicates he has a known history of sleep apnea and religiously wears a BiPAP nocturnally. His CBC was unremarkable. Hischemistry panel was unremarkable other than significant hyperglycemia with a blood sugar of 293. A lactic acid was obtained and found to be 2.7. CRP was markedly elevated at 153. His UA is not consistent with infection. Chest x-raywas unremarkable when compared to previous on 11/28/2022. Imaging of the right foot ankle and tibia and fibula were performed and demonstrated fracture of the medial base of the first proximal phalanx without displacement and diffuse soft tissue swelling, extensive arthritic changes at the ankle, and diffuse soft tissue swelling of the distal left lower extremity. COVID and flu are negative. He was admitted to the medical floor. Admit to and on broad-spectrum antibiotics with consultation to infectious disease and podiatry. Podiatry feltthat the fracture was old and no intervention was needed as the patient was not symptomatic. Infectious disease recommended we continue clindamycin 900 mg 3 times daily to complete a course of antibiotics. Overall his leg looked less red and by the a.m. of 05/23/2023 and the patient was adamant that he needed to get home so we could make his appointments tomorrow. With regards to his shortness of breath we did place him on some Lasix. I do suspect he probably has some pulmonary hypertension and obesity hypoventilation syndrome. We did doa room air blood gas and he is a slight elevation is 80 gradient however it was not all that remarkable. I discussed salt intake with him and he states he doesnot add any salt but he does eat out frequently. We did have the dietitian comein and talk with him about low-salt diet and how to avoid high salt intake and started him on Lasix 40 mg daily. He was seen by physical and Occupational Therapy and they recommended ongoing home health care however the patient deferred this at the time of discharge. A prescription for Lasix was sent to his local pharmacy as well as his prescription for clindamycin. He is to complete the oral antibiotics for completion of the treatment duration noted. Lizzy asked him to follow-up with his primary care physician within the next 3 to5 days and obtain a basic metabolic profile to reassess his renal function and electrolytes with the addition of Lasix. I also recommended he follow-up with pulmonary medicine as an outpatient and gave him information to call to make an appointment to be seen within the next month. We did do an ambulatory pulse ox prior to discharge and the patient did not require any supplemental oxygen. At his request, the patient was discharged in stable condition on 05/23/2023. Discharge diagnoses: Exertional hypoxia-resolved Right lower extremity cellulitis Fracture of the medial base of the first proximal phalanx without displacement-chronic DM-2-poorly controlled Hypertension Diabetic neuropathy PAF TODD Morbid obesity Physical Exam Const alert, oriented x3, no apparent distress and well nourished; Negative for average body habitus or healthy appearing Constitutional Narrative: Morbidly obese, upper middle-aged, white male, sitting up in a chair at the bedside, watching television, appears comfortable, nontoxic General Appearance: cooperative, comfortable, well kempt and well developed Orientation / Consciousness: awake, oriented to person, oriented to place and oriented to time Exam Limitations: no limitations Nutritional Appearance: morbidly obese HEENT normocephalic, head/scalp atraumatic, hearing grossly normal bilaterally and moist oral mucous membranes HEENT Narrative: Mallampati 3-4, no thrush Eyes PERRL and conjunctivae normal Eyes Narrative: No scleral icterus Neck no lymphadenopathy and supple Neck Narrative: Neck is short and thick, trachea midline, no thyroid enlargement Resp normal respiratory effort, no retractions, no use of accessory muscles and clearto auscultation bilaterally Resp Narrative: Good air movement bilaterally, no wheezing or crackles noted Auscultation: Negative for rales, rhonchi or wheezes Cardio regular rate, regular rhythm, S1 normal heart sound, S2 normal heart sound, no murmurs, no rub, no gallops and no clicks GI normal to inspection, nondistended, normoactive bowel sounds, soft to palpation and non-tender GI Narrative: Umbilical hernia present, large protuberant abdomen Extremity Extremity Narrative: Bilateral lower extremity edema that appears consistent with lymphedema, right lower extremity with significant erythema but no wounds, no cyanosis or clubbing Skin Skin Narrative: Erythema in the right lower extremity from just below the knee to just above theankle, skin is dry without any wounds open noted-erythema has decreased in intensity Neuro oriented x3, moves all extremities and no focal motor deficits Speech: speech normal Psych mental status grossly normal and affect normal Psych Narrative: Talkative, eye contact is good, patient interacts appropriately Weight / BMI Weight Weight: 168.51 kg Body Mass Index (BMI) 56.5 ABG / Lab / Microbiology Data 05/23/23 07:00 05/23/23 07:00 Laboratory: Laboratory Results - last 24 hr 05/22/23 17:07: POC Glucose 233 H 05/22/23 19:30: Vancomycin Trough 20.0 H 05/22/23 21:29: POC Glucose 239 H 05/23/23 07:00: WBC 10.1, RBC 4.82, Hgb 12.5 L, Hct 40.5, MCV 84.0, MCH 25.9 L, MCHC 30.9 L, RDW Std Deviation 42.7, RDW Coeff of Jada 14.1, Plt Count 209, MPV 9.7, Immature Gran % (Auto) 0.500, Neut % (Auto) 67.7, Lymph % (Auto) 21.5, Navarro% (Auto) 6.8, Eos % (Auto) 3.0, Baso % (Auto) 0.5, Absolute Neuts (auto) 6.8, Absolute Lymphs (auto) 2.17, Nucleated RBC % 0, Sodium 137, Potassium 3.8, Chloride 102, Carbon Dioxide 32.0, Anion Gap 3 L, BUN 20 H, Creatinine 0.82, Estim Creat Clear Calc 83.41, Est GFR (MDRD) Af Amer 121, Est GFR (MDRD) Non-Af 100, BUN/Creatinine Ratio 24.5 H, Glucose 166 H, Calcium 8.6 05/23/23 07:56: POC Glucose 153 H 05/23/23 11:53: POC Glucose 268 H Microbiology: Microbiology 05/21/23 13:25 Blood Culture (Wb) - Anticubital Right Blood Culture - Preliminary No growth in 48 hours. 05/21/23 15:05 Urine, Clean Catch Urine Culture - Final Mixed Gram Positive Organisms 05/21/23 13:15 Nasal Secretion SARS-CoV-2 & FLU Antigen (Rapid) - Final D/C Instructions Discharge Diet: Low fat / Low cholesterol, 1800 Calorie Control Diet, 8 Cup Fluid Restriction and 2000 mg Sodium Diet Discharge Activity: Return to Normal Activity Return to work on: 05/24/23 Meaningful Use Info Meaningful Use Diagnoses (Choose all that apply): None applicable Discharge Plan Admission Admit Date/Time: 05/21/23 16:01 Primary Reason for Your Visit: Shortness of breath/weakness/right lower extremity swelling Attending Provider: Julee Spain Primary Care Provider: Bernabe Reese Consulting Providers: Haily Santos; Albert Root; Gregorio Mccarthy Instructions Additional Instructions / Restrictions: . Please ask your primary care physician to obtain a basic metabolic profile inthe next 5 to 7 days to recheck your kidney function and sodium/potassium with the initiation of oral Lasix. Discharge Orders/Prescriptions Prescriptions: New furosemide [Lasix] 40 mg tablet 40 mg PO DAILY Qty: 30 1RF clindamycin HCl [Cleocin HCl] 300 mg capsule 900 mg PO Q8H Qty: 72 0RF Continued Toujeo Max U-300 SoloStar 300 unit/mL (3 mL) insulin pen 55 unit subcut QHS metformin 1,000 MG tablet 1,000 mg PO BIDCM losartan 100 MG tablet 100 mg PO QHS amlodipine 5 MG tablet 5 mg PO QHS [id number] 1 EACH tablet 1 tablet PO DAILY metoprolol succinate [Toprol XL] 100 mg Tablet Extended Release 24 Hr 100 mg PO QHS apixaban 5 mg tablet 5 mg PO BID gabapentin 800 mg tablet 800 mg PO .QID Referrals / Follow Up: Rocky Edwards MD [Med Staff - Active Staff] - Within 1 Month (Please call to setup an appointment to be seen by the lung doctor) Bernabe Reese MD [Primary Care Provider] - 3-5 Days Disposition Disposition (needs filled in before D/C Order can be placed): Home, Self Care Charges/Coding Visit Charges Inpatient E&M: 49152 Disch Hosp >30min 05/23/23 1330 <Electronically signed by Julee Spain DO> Cosigner Signature (if applicable): CC: Dr. Bernabe Reese MD; Dr. Julee Spain DO~ Signed [facility] Work Phone: 1(374) 956-332412-04-2023 Consult note Author Bridger Martinez [facility] May 23, 2023 10:21am Note Date/Time May 23, 2023 1 0:21am [facility] Medical Records Department [address] [place] [address] Consultation - Infectious Dx 05/23/23 1018 MR#: [id number] Acct: [id number] Name: LANI ZARAGOZA Rep #:[id number] : 1955 67 From: Bridger Martinez MD PCP: Dr. Bernabe Reese MD Status:AD M [place] [facility] [place] Assessment & Plan Assessment/Plan (1) Cellulitis of right leg: PLAN: Right leg cellulitis strongly suspect streptococcal in etiology in a patient with severe penicillin allergy. At this time we will treat with clindamycin 900 mg IV every 8 hours. Once the erythema improves oral clindamycin transition will be reasonable. HPI Consult Data Date of Consult: 05/23/23 HPI Narrative Reason for Consultation: Right leg cellulitis HPI Narrative: LANI ZARAGOZA, is a 67 M who presents with multiple comorbidities including morbid obesity, insulin requiring diabetes mellitus, coronary disease with atrial fibrillation who presents with increased erythema and swelling the right leg. No documented fevers. Patient was placed on vancomycin plus meropenem upon admission. Denies any trauma to the right leg. No nausea or vomiting. Nocardiopulmonary distress. Overall hemodynamically stable. Does have issues with underlying lymphedema of the right leg. [facility] Medical History (Updated 05/21/23 @ 15:[address] Edward Luevano DO) Alcohol use Ambulates with cane Anxiety Arthritis Atrial fibrillation Bilateral leg edema BiPAP (biphasic positive airway pressure) dependence [facility] Cardiology follow-up encounter Chronic anticoagulation Chronic cellulitis Depression Diabetes Dietary restriction Essential (primary) hypertension Fall Former smoker History of echocardiogram History of edema History of pain when walking History of ulceration HTN (hypertension) Hyperglycemia due to diabetes mellitus Hyperlipidemia Insulin dependent diabetes mellitus Leg cramps Low iron Lower extremity neuropathy Morbid obesity New onset atrial fibrillation (10/01/20) Obstructive sleep apnea Pickwickian syndrome Restless legs Shortness of breath on exertion Streptococcal bacteremia Thyroid nodule Type 2 diabetes mellitus Wears glasses Home Medications losartan 100 mg tablet 100 mg PO QHS Check with primary doctor 04/04/14 [History Last Taken 05/20/23] metformin 1,000 mg tablet 1,000 mg PO BIDCM diabetes 04/04/14 [History Last Taken 05/21/23] amlodipine 5 mg tablet 5 mg PO QHS BP 10/01/20 [History Last Taken 05/20/23] eewizmiw-uh-ekixs 300 mcg-K 60 mcg-lycop 600 mcg-lutein 300 mcg tablet 1 tablet PO DAILY supplemetn 10/01/20 [History Last Taken 05/21/23] metoprolol succinate 100 mg tablet,extended release 24 hr (Toprol XL) 100 mg PO QHS Check with primary doctor 12/03/20 [History Last Taken 05/20/23] insulin glargine U-300 conc 300 unit/mL (3 mL) subcutaneous pen (Toujeo Max U- 300 SoloStar) 55 unit subcut QHS diabetes 09/27/22 [History Last Taken 05/20/23] apixaban 5 mg tablet 5 mg PO BID blood thinner 11/29/22 [History Last Taken 05/21/23] gabapentin 800 mg tablet 800 mg PO .QID neuropathy 11/29/22 [History Last Taken 05/21/23] Allergy/AdvReac Type Severity Reaction Status Date / Time ampicillin Allergy Unknown Verified 03/24/23 10:59 peanut Allergy NEEDS Verified 11/28/22 04:32 FOLLOW-UP Penicillins Allergy Unknown Verified 11/28/22 04:32 Family History Mother Heart disease Diabetes Father Heart disease Cancer Surgical History History of amputation of toe History of wisdom tooth extraction Social History Smoking Status: Former smoker how long ago did patient quit smokin alcohol intake: never substance use type: does not use caffeine: Yes ROS ROS Narrative As stated in the history of present illness otherwise negative Physical Exam Narrative Alert responsive does not appear toxic, lungs are clear heart exam S1-S2. Distant heart sounds abdomen is obese but soft. I did take down the Haider wrap ofthe right leg, there is diffuse none suppurative erythema the right leg no crepitus or signs of deep infection. Left leg looks benign Lab / Micro Data 05/23/23 07:00 05/23/23 07:00 Labs: Laboratory Results - last 24 hr 05/22/23 12:31: POC Glucose 309 H 05/22/23 17:07: POC Glucose 233 H 05/22/23 19:30: Vancomycin Trough 20.0 H 05/22/23 21:29: POC Glucose 239 H 05/23/23 07:00: WBC 10.1, RBC 4.82, Hgb 12.5 L, Hct 40.5, MCV 84.0, MCH 25.9 L, MCHC 30.9 L, RDW Std Deviation 42.7, RDW Coeff of Jada 14.1, Plt Count 209, MPV 9.7, Immature Gran % (Auto) 0.500, Neut % (Auto) 67.7, Lymph % (Auto) 21.5, Navarro% (Auto) 6.8, Eos % (Auto) 3.0, Baso % (Auto) 0.5, Absolute Neuts (auto) 6.8, Absolute Lymphs (auto) 2.17, Nucleated RBC % 0, Sodium 137, Potassium 3.8, Chloride 102, Carbon Dioxide 32.0, Anion Gap 3 L, BUN 20 H, Creatinine 0.82, Estim Creat Clear Calc 83.41, Est GFR (MDRD) Af Amer 121, Est GFR (MDRD) Non-Af 100, BUN/Creatinine Ratio 24.5 H, Glucose 166 H, Calcium 8.6 05/23/23 07:56: POC Glucose 153 H Micro: Microbiology 05/21/23 15:05 Urine, Clean Catch Urine Culture - Final Mixed Gram Positive Organisms ABG Data ABG results: ABG 05/22/23 10:22 Specimen Type ART Sample Site L Radial pH 7.38 Bicarbonate Actual 27.7 H Total CO2 29 Base Excess 3 H O2 Saturation 93 L ABG pCO2 46.4 H ABG pO2 68 L Jake Test Positive O2 Delivery Device Room Air Vent Mode Not entered 05/23/23 1021 <Electronically signed by Bridger Martinez MD> Cosigner Signature (if applicable): CC: DPM Dr. Albert Root; Dr. Haily Santos DO; Dr. Bernabe Reese MD; Dr. Gregorio Mccarthy MD~ Signed [facility] Work Phone: [phone]) [phone] Progress note Author Julee Spain [facility] May 22, 2023 12:24pm Note Date/Time May 22, 2023 8 :57am [facility] Medical Records Department [address] [place] [address] Progress Note - Hospitalist 05/22/23 0849 MR#: [id number] Acct: [id number] Name: LANI ZARAGOZA Rep #:[id number] : 1955 67 From: Julee Spain DO PCP: Dr. Bernabe Reese MD Status:AD M [place] [facility] [place] Reason for Visit Reason for Visit: Shortness of breath/weakness/right lower extremity swelling Subjective Subjective Patient is a super morbidly obese white male who presented to the emergency department at [facility] on 05/21/2023 with shortness of breath, generalized weakness, and worsening right lower extremity edema. Upon presentation he had no conversational dyspnea and did not appear to be in any acute distress. He was satting well on room air with no increased work of breathing. 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 He reported over the last few days prior to presentation he had felt generally weaker than typical and had increased shortness of breath with exertion. He also noted that his right lower leg had become more red and swollen. He denied any fever or chills and had been using a cane to ambulate around the house. He did indicate he had been more sedentary over the past few days due to right lower extremity swellingand pain. He denied any cough or sputum and indicates he has a known history ofsleep apnea and religiously wears a BiPAP nocturnally. His CBC was unremarkable. His chemistry panel was unremarkable other than significant hyperglycemia with a blood sugar of 293. A lactic acid was obtained and found to be 2.7. CRP was markedly elevated at 153. His UA is not consistent with infection. Chest x-ray was unremarkable when compared to previous on 11/28/2022. Imaging of the right foot ankle and tibia and fibula were performed and demonstrated fracture of the medial base of the first proximal phalanx without displacement and diffuse soft tissue swelling, extensive arthritic changes at the ankle, and diffuse soft tissue swelling of the distal left lower extremity. COVID and flu are negative. He was admitted to the medical floor. We suspect the shortness of breath is likely related to obesity hypoventilation syndrome and a room ABG is pending. He was placed on broad-spectrum antibiotics and infectious disease and podiatry were consulted. Patient states his exertional dyspnea is not new however has gotten a little bitworse with time. Objective Data Objective Data Vital Signs: Vital Signs Temp Pulse Resp BP Pulse Ox O2 Del Method FiO2 97.6 F L 83 18 124/62 H 96 Room Air 21 05/22/23 08:27 05/22/23 08:27 05/22/23 08:27 05/22/23 08:27 05/22/23 08:27 05/22/23 08:33 05/21/23 23:20 Oxygen Delivery Method Room Air Weight: 168.51 kg Body Mass Index (BMI) 56.5 Intake & Output: Intake and Output for Last 24 Hours 05/20/23 05/21/23 05/22/23 23:59 23:59 23:59 Intake Total 590 / 940 1380 / 1380 Balance 590 / 940 1380 / 1380 Lab / Micro Data 05/22/23 04:57 05/22/23 04:57 Labs: Laboratory Results - last 24 hr 05/21/23 13:25: WBC 10.6, RBC 4.93, Hgb 12.8 L, Hct 41.7, MCV 84.6, MCH 26.0 L, MCHC 30.7 L, RDW Std Deviation 43.4, RDW Coeff of Jada 14.2, Plt Count 173, MPV 11.0, Immature Gran % (Auto) 0.400, Neut % (Auto) 74.4 H, Lymph % (Auto) 16.0 L,Navarro % (Auto) 7.7, Eos % (Auto) 1.0, Baso % (Auto) 0.5, Absolute Neuts (auto) 7.9 H, Absolute Lymphs (auto) 1.70, Nucleated RBC % 0, Sodium 136, Potassium 3.9, Chloride 100, Carbon Dioxide 32.0, Anion Gap 4 L, BUN 16, Creatinine 0.94, Estim Creat Clear Calc 72.77, Est GFR (MDRD) Af Amer 102, Est GFR (MDRD) Non-Af 84, BUN/Creatinine Ratio 17.0, Glucose 293 H, Lactic Acid 2.7 H*, Calcium 9.2, Troponin I High Sens 10, B-Natriuretic Peptide 29.8 05/21/23 15:05: Urine Color Yellow, Urine Clarity Clear, Urine pH 5.0, Ur Specific Stacy 1.020, Urine Protein 30 H, Urine Glucose (UA) 1000 H, Urine Ketones 5 H, Urine Occult Blood 10 H, Urine Nitrite Negative, Urine Bilirubin Negative, Urine Urobilinogen Normal, Ur Leukocyte Esterase Negative, Urine RBC 0SEEN, Urine WBC 0 SEEN, Ur Squamous Epith Cells 0-5 SEEN, Uric Acid Crystals RARE, Urine Bacteria RARE, Urine Mucus 0 SEEN 05/21/23 16:10: Troponin I High Sens 10, C-React Prot Ext Range 159.00 H 05/21/23 17:52: Lactic Acid 1.7 05/21/23 20:35: Lactic Acid 2.0 05/21/23 22:41: POC Glucose 321 H 05/22/23 01:05: Lactic Acid 1.5 05/22/23 04:57: WBC 9.4, RBC 4.86, Hgb 12.6 L, Hct 40.8, MCV 84.0, MCH 25.9 L, MCHC 30.9 L, RDW Std Deviation 42.6, RDW Coeff of Jada 14.1, Plt Count 190, MPV 9.8, Sodium 136, Potassium 3.9, Chloride 101, Carbon Dioxide 31.0, Anion Gap 4 L, BUN 14, Creatinine 0.82, Estim Creat Clear Calc 83.41, Est GFR (MDRD) Af Amer 120, Est GFR (MDRD) Non-Af 99, BUN/Creatinine Ratio 17.1, Glucose 252 H, Lactic Acid 1.1, Calcium 8.5 05/22/23 08:02: POC Glucose 233 H Micro: Microbiology 05/21/23 13:15 Nasal Secretion SARS-CoV-2 & FLU Antigen (Rapid) - Final Radiography Diagnostic Testing: Radiology Impression Chest X-Ray 05/21/23 13:19 IMPRESSION: No acute cardiopulmonary pathology and no significant interval change when compared to 11/28/2022. Electronically Signed: Mateo Huston MD at 13:34 EST , Foot X-Ray 05/21/23 16:30 IMPRESSION: 1. Apparent fracture of the medial base of the first proximal phalanx without displacement. 2. Diffuse soft tissue swelling. Degenerative changes. Electronically Signed: Dalton Tomas DO at 19:41 EST , Ankle X-Ray 05/21/23 16:37 IMPRESSION: 1. Diffuse soft tissue swelling. 2. Extensive arthritic changes. No definite acute osseous abnormality. Electronically Signed: Dalton Tomas DO at 19:40 EST , Tibia/Fibula X-Ray 05/21/23 16:37 IMPRESSION: Diffuse soft tissue swelling, dystrophic soft tissue calcifications, and degenerative changes. No acute osseous abnormalities. Electronically Signed: Dalton Tomas DO at 20:49 EST , Physical Exam Const alert, oriented x3, no apparent distress and well nourished; Negative for average body habitus or healthy appearing Constitutional Narrative: Morbidly obese, upper middle-aged, white male, sitting up on the edge of the bed, appears comfortable nontoxic HEENT head/scalp atraumatic and moist oral mucous membranes HEENT Narrative: Mallampati 3-4, no thrush Head and Scalp: normocephalic Eyes PERRL and conjunctivae normal Neck no lymphadenopathy and supple Neck Narrative: Neck is short and thick, trachea midline, no thyroid enlargement Resp normal respiratory effort, no retractions, no use of accessory muscles and clearto auscultation bilaterally Auscultation: Negative for rales, rhonchi or wheezes Cardio regular rate, regular rhythm, S1 normal heart sound, S2 normal heart sound, no murmurs, no rub, no gallops and no clicks GI normal to inspection, nondistended, normoactive bowel sounds, soft to palpation and non-tender GI Narrative: Umbilical hernia present, large protuberant abdomen Extremity Extremity Narrative: Bilateral lower extremity edema that appears consistent with lymphedema, right lower extremity with significant erythema but no wounds, no cyanosis or clubbing Skin Skin Narrative: Erythema in the right lower extremity from just below the knee to just above theankle, skin is dry without any wounds open noted Neuro oriented x3, moves all extremities and no focal motor deficits Speech: speech normal Psych affect normal Psych Narrative: Talkative, eye contact is good, patient interacts appropriately Assessment & Plan Assessment/Plan (1) Hypoxemia: (2) Weakness: (3) Cellulitis of right leg: PLAN: Plan Exertional hypoxia -COVID and flu are negative -Patient has no respiratory symptoms so we will defer acute respiratory panel atthis time -Currently on room air -Will check room air blood gas as I do suspect patient may have obesity hypoventilation syndrome with a BMI of 56.5 -He is chronically anticoagulated due to history of atrial fibrillation therefore I doubt he has any VTE -Echocardiogram in November that showed 65% EF, inability to assess folic dysfunction due to poor study, mildly enlarged left atrium with no significant valvular disease--> unfortunately right ventricular systolic pressure was unableto be assessed -Will give Lasix 40 mg IV push twice daily--patient is not on any chronic diuretic however with his size and sleep apnea I do suspect he probably has someright ventricular elevated pressures and may benefit from diuresis. Right lower extremity cellulitis with history of left foot osteomyelitis -Continue vancomycin but discontinue ceftriaxone and Flagyl and replace with meropenem -Patient does have allergy to penicillins but is unclear -Cultures pending -No obvious osseous evidence of osteomyelitis on imaging at this time -Podiatry and ID consultation Fracture of the medial base of the first proximal phalanx without displacement -Podiatry consult was pending -I suspect at the very least he will need a walking shoe DM-2 -Poorly controlled with recent hemoglobin A1c of 10.2 -Continue home insulin but increase basal insulin to 30 units twice daily from 45 units nightly -Increase prandial insulin from 10 to 16 units 3 times daily -SSI -Accu-Cheks as ordered -Will hold metformin while hospitalized -It is imperative for healing but he does improve glycemic control Hypertension -Hold losartan for now as blood pressure was on the borderline when he came in -Continue metoprolol -Restart home nocturnal amlodipine Diabetic neuropathy -Continue home gabapentin Paroxysmal atrial fibrillation -Continue home apixaban -Continue home beta-rosie TODD -Continue home nocturnal BiPAP Morbid obesity -BMI is 56.5 -Recommend weight loss -Complicates treatment, prognosis, outcomes DVT prophylaxis -Continue home apixaban CODE STATUS -Full code Charges/Coding Visit Charges Inpatient E&M: 06839 Subs Hosp L3 05/22/23 1224 <Electronically signed by Julee Spain DO> Cosigner Signature (if applicable): CC: ~ Signed [facility] Work Phone: 1(538) 204-267412-03-2023 Consult note Author Albert Root [facility] May 22, 2023 11:20am Note Date/Time May 22, 2023 1 0:41am [facility] Medical Records Department [address] [place] [address] Consultation 05/22/23 1041 MR#: [id number] Acct: [id number] Name: LANI ZARAGOZA Rep #:[id number] : 1955 67 From: Albert Root DPJoyce PCP: Dr. Bernabe Reese MD Status:AD M IN [id number] H[facility] Consult Data Date of Consult: 05/22/23 HPI Narrative HPI Narrative: LANI ZARAGOZA, is a 67 M who presents [facility] Medical History (Updated 05/21/23 @ 15:[address] Edward uLevano DO) Alcohol use Ambulates with cane Anxiety Arthritis Atrial fibrillation Bilateral leg edema BiPAP (biphasic positive airway pressure) dependence [facility] Cardiology follow-up encounter Chronic anticoagulation Chronic cellulitis Depression Diabetes Dietary restriction Essential (primary) hypertension Fall Former smoker History of echocardiogram History of edema History of pain when walking History of ulceration HTN (hypertension) Hyperglycemia due to diabetes mellitus Hyperlipidemia Insulin dependent diabetes mellitus Leg cramps Low iron Lower extremity neuropathy Morbid obesity New onset atrial fibrillation (10/01/20) Obstructive sleep apnea Pickwickian syndrome Restless legs Shortness of breath on exertion Streptococcal bacteremia Thyroid nodule Type 2 diabetes mellitus Wears glasses Home Medications losartan 100 mg tablet 100 mg PO QHS Check with primary doctor 04/04/14 [History Last Taken 05/20/23] metformin 1,000 mg tablet 1,000 mg PO BIDCM diabetes 04/04/14 [History Last Taken 05/21/23] amlodipine 5 mg tablet 5 mg PO QHS BP 10/01/20 [History Last Taken 05/20/23] [id number]-[id number] 300 mcg-K 60 mcg-lycop 600 mcg-lutein 300 mcg tablet 1 tablet PO DAILY supplemetn 10/01/20 [History Last Taken 05/21/23] metoprolol succinate 100 mg tablet,extended release 24 hr (Toprol XL) 100 mg PO QHS Check with primary doctor 12/03/20 [History Last Taken 05/20/23] insulin glargine U-300 conc 300 unit/mL (3 mL) subcutaneous pen (Toujeo Max U- 300 SoloStar) 55 unit subcut QHS diabetes 09/27/22 [History Last Taken 05/20/23] apixaban 5 mg tablet 5 mg PO BID blood thinner 11/29/22 [History Last Taken 05/21/23] gabapentin 800 mg tablet 800 mg PO .QID neuropathy 11/29/22 [History Last Taken 05/21/23] Allergy/AdvReac Type Severity Reaction Status Date / Time ampicillin Allergy Unknown Verified 03/24/23 10:59 peanut Allergy NEEDS Verified 11/28/22 04:32 FOLLOW-UP Penicillins Allergy Unknown Verified 11/28/22 04:32 Family History Mother Heart disease Diabetes Father Heart disease Cancer Surgical History History of amputation of toe History of wisdom tooth extraction Social History Smoking Status: Former smoker how long ago did patient quit smokin alcohol intake: never substance use type: does not use caffeine: Yes Lab / Micro Data 05/22/23 04:57 05/22/23 04:57 Labs: Laboratory Results - last 24 hr 05/21/23 13:25: WBC 10.6, RBC 4.93, Hgb 12.8 L, Hct 41.7, MCV 84.6, MCH 26.0 L, MCHC 30.7 L, RDW Std Deviation 43.4, RDW Coeff of Jada 14.2, Plt Count 173, MPV 11.0, Immature Gran % (Auto) 0.400, Neut % (Auto) 74.4 H, Lymph % (Auto) 16.0 L,Navarro % (Auto) 7.7, Eos % (Auto) 1.0, Baso % (Auto) 0.5, Absolute Neuts (auto) 7.9 H, Absolute Lymphs (auto) 1.70, Nucleated RBC % 0, Sodium 136, Potassium 3.9, Chloride 100, Carbon Dioxide 32.0, Anion Gap 4 L, BUN 16, Creatinine 0.94, Estim Creat Clear Calc 72.77, Est GFR (MDRD) Af Amer 102, Est GFR (MDRD) Non-Af 84, BUN/Creatinine Ratio 17.0, Glucose 293 H, Lactic Acid 2.7 H*, Calcium 9.2, Troponin I High Sens 10, B-Natriuretic Peptide 29.8 05/21/23 15:05: Urine Color Yellow, Urine Clarity Clear, Urine pH 5.0, Ur Specific Stacy 1.020, Urine Protein 30 H, Urine Glucose (UA) 1000 H, Urine Ketones 5 H, Urine Occult Blood 10 H, Urine Nitrite Negative, Urine Bilirubin Negative, Urine Urobilinogen Normal, Ur Leukocyte Esterase Negative, Urine RBC 0SEEN, Urine WBC 0 SEEN, Ur Squamous Epith Cells 0-5 SEEN, Uric Acid Crystals RARE, Urine Bacteria RARE, Urine Mucus 0 SEEN 05/21/23 16:10: Troponin I High Sens 10, C-React Prot Ext Range 159.00 H 05/21/23 17:52: Lactic Acid 1.7 05/21/23 20:35: Lactic Acid 2.0 05/21/23 22:41: POC Glucose 321 H 05/22/23 01:05: Lactic Acid 1.5 05/22/23 04:57: WBC 9.4, RBC 4.86, Hgb 12.6 L, Hct 40.8, MCV 84.0, MCH 25.9 L, MCHC 30.9 L, RDW Std Deviation 42.6, RDW Coeff of Jada 14.1, Plt Count 190, MPV 9.8, Sodium 136, Potassium 3.9, Chloride 101, Carbon Dioxide 31.0, Anion Gap 4 L, BUN 14, Creatinine 0.82, Estim Creat Clear Calc 83.41, Est GFR (MDRD) Af Amer 120, Est GFR (MDRD) Non-Af 99, BUN/Creatinine Ratio 17.1, Glucose 252 H, Hemoglobin A1c 10.4 H, Lactic Acid 1.1, Calcium 8.5 05/22/23 08:02: POC Glucose 233 H Micro: Microbiology 05/21/23 13:15 Nasal Secretion SARS-CoV-2 & FLU Antigen (Rapid) - Final ABG Data ABG results: ABG 05/22/23 10:22 Specimen Type ART Sample Site L Radial pH 7.38 Bicarbonate Actual 27.7 H Total CO2 29 Base Excess 3 H O2 Saturation 93 L ABG pCO2 46.4 H ABG pO2 68 L Jake Test Positive O2 Delivery Device Room Air Vent Mode Not entered Imagaing Radiology Impression Chest X-Ray 05/21/23 13:19 IMPRESSION: No acute cardiopulmonary pathology and no significant interval change when compared to 11/28/2022. Electronically Signed: Mateo Huston MD at 13:34 EST , Foot X-Ray 05/21/23 16:30 IMPRESSION: 1. Apparent fracture of the medial base of the first proximal phalanx without displacement. 2. Diffuse soft tissue swelling. Degenerative changes. Electronically Signed: Dalton Tomas DO at 19:41 EST , Ankle X-Ray 05/21/23 16:37 IMPRESSION: 1. Diffuse soft tissue swelling. 2. Extensive arthritic changes. No definite acute osseous abnormality. Electronically Signed: Dalton Tomas DO at 19:40 EST , Tibia/Fibula X-Ray 05/21/23 16:37 IMPRESSION: Diffuse soft tissue swelling, dystrophic soft tissue calcifications, and degenerative changes. No acute osseous abnormalities. Electronically Signed: Daltonlukasz PedrozahalideaDO graciela at 20:49 EST , 05/22/23 1041 <Electronically signed by Albert Root DPM> Cosigner Signature (if applicable): CC: DPJoyce Root; Dr. Haily Santos DO; Dr. Bernabe Reese MD~ Signed ADDENDUM by DPJoyce Root on 05/22/23 at 1120 Addendum CC: Right leg cellulitis HPI: 67 year old gentleman with many medical problems was seen today for right lower extremity cellulitis. He relates to hx of wounds and cellulitis, but no wounds or drainage at this time. He relates redness started a couple days ago. He has been started on IV antibiotics. He denies any trauma or known injury. Xrays right foot show possible fx of the 1st toe proximal phalanx - he has no pain or symptoms. He does have neuropathy though. He is being treated for shortness of breath - COVID and flu negative. Exam: There is diffuse LE edema, right worse than leg, right LE with leg cellulitis, there are no open lesions, no drainge, no fluctuance, no crepitus, no blistering to the foot, ankle or leg bilateral. There is some dry skin bilateral LE. Toenails thickened but maintained at this time 1-5 right and 1-4 left. s/p previous left 5th ray amp - healed. No evidence of active charcot neuroarthropathy bilateral foot/ankle. Pedal pulses are palpable bilateral. CFT <2 seconds to all toes bilateral. Sensation does appear to be decreased to touch bilateral foot. Patient is able to dorsiflex and plantarflex foot/ankle bilateral. No gross instability to the foot or ankle bilateral. Diagnosis: Cellulitis right lower extremity L03.115, Peripheral neuropathy Plan: Evaluation performed. Reviewed diagnostic data. Reviewed right foot, ankleand leg xrays - no evidence of osteomyelitis, no gas present. There is right LE cellulitis - but no open wounds and nothing to culture. He is on Vanc and Meropenem, ID consult pending. Reviewed elevation and compression therapy - applied compression dressing to right foot/ankle/leg - change daily. Regarding right 1st toe nondisplaced fracture of medial proximal phalanx base - this appears to be old injury, there are no acute findings and it is asymptomatic at this time. Monitor and follow up if any symptoms develop. Podiatry will continue to follow, thank you for consultation. 05/22/23 1120<Electronically signed by Albert Root DPM> Cosigner Signature (if applicable): cc: ESAU Root; Dr. Haily Santos, DO; Dr. Bernabe Reese MD ~* Signed [facility] Work Phone: 1(225) 374-726912-03-2023 Consult note Author Bernabe Milan [facility] May 21, 2023 10:34pm Note Date/Time May 21, 2023 1 0:34pm [facility] Medical Records Department [address] [place] [address] Pharmacokinetic/Renal -Consult 05/21/232232 MR#: [id number] Acct: [id number] Name: LANI ZARAGOZA Rep #:[id number] : 1955 67 From: Bernabe Forbes od PCP: Dr. Bernabe Reese MD Status:AD M IN [place] [facility] [id number] Antibiotic Management Pharmacy has been consulted to manage selected antiobiotic: Vancomycin Type of Intervention Type of Consult: New start Labs Labs: Sodium 136 mmol/L (136-145) 05/21/23 13:25 Potassium 3.9 mmol/L (3.5-5.1) 05/21/23 13:25 Chloride 100 mmol/L (98-107) 05/21/23 13:25 Carbon Dioxide 32.0 mmol/L (21.0-32.0) 05/21/23 13:25 Anion Gap 4 (5-15) L 05/21/23 13:25 BUN 16 mg/dL (7-18) 05/21/23 13:25 Creatinine 0.94 mg/dL (0.70-1.30) 05/21/23 13:25 Est GFR (MDRD) Af Amer 102 mL/min (>60) 05/21/23 13:25 Est GFR (MDRD) Non-Af 84 mL/min (>60) 05/21/23 13:25 BUN/Creatinine Ratio 17.0 RATIO (10-20) 05/21/23 13:25 Glucose 293 mg/dL (74-106) H 05/21/23 13:25 Microbiology Microbiology: Microbiology 05/21/23 13:15 Nasal Secretion SARS-CoV-2 & FLU Antigen (Rapid) - Final Dosing Weight Weight used for dosin.5 kg Estimated Creatinine Clearance Estimated Creatinine Clearance: >100 Goal Trough Goal Trough: 15-20 mcg/mL Pharmacy Plan for Drug Dosing Pharmacy Plan for Drug Dosing: Pharmacy Service will continue to monitor and adjust dosing as required. Follow-Up Labs Follow-Up Labs: Trough: Vancomycin Date/Time Labs Ordered Labs to be done on [date and time ordered]: 05/22 @ 1930 05/21/232233 <Electronically signed by Bernabe jain> Date _ Bernabe Milan Cosigner Signature (if applicable): Date CC: ~ Signed [facility] Work Phone: 1(258) 642-898812-02-2023 History and physical note Author Haily Santos [facility] May 21, 2023 5:51pm Note Date/Time May 21, 2023 4 :01pm [facility] Medical Records Department [address] [place] [address] H&P Exam - Hospitalist 05/21/23 1550 MR#: [id number] Acct: [id number] Name: LANI ZARAGOZA Rep #:[id number] : 1955 67 From: Haily ceron DO PCP: Dr. Bernabe Reese MD Status:AD M IN Location: [facility] [id number] HPI - General General Date of Admission: 05/21/23 Date of Service: 05/21/23 Chief Complaint: Shortness of breath, weakness, RLE swelling HPI Narrative LANI ZARAGOZA, is a 67 M who presented to [facility] ED on 05/21/2023 from home with multiple concerns including shortness of breath, generalized weakness and worsening right lower extremity swelling. Patient seenat bedside in the ED. Laying comfortably in bed, conversing normally, no acute distress. Patient is satting well on room air, no increased work of breathing noted. Patient lives at home by himself. 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 States over the last few days he has felt generally weaker with some shortness of breath on exertion. He has also noticed that his right lower leg has become more red and swollen over that timeframe. He denies any fevers or chills recently. Uses a cane to ambulate around the home, has been more sedentary overthe past few days due to mild right lower extremity pain and generalized weakness. He denies any cough or sputum production recently. Patient has history of sleep apnea, wears his BiPAP every night without issue. Patient states he has been taking his home medications as prescribed. He takes long-acting insulin every night along with metformin. Checks his blood sugars occasionally and they typically are in the 250s. He does have fairly significant polyuria and polydipsia on a regular basis. He denies any abdominalpain, nausea or vomiting. No other acute concerns this time. [facility] Medical History (Updated 05/21/23 @ 15:[address] Edward Luevano DO) Alcohol use Ambulates with cane Anxiety Arthritis Atrial fibrillation Bilateral leg edema BiPAP (biphasic positive airway pressure) dependence [facility] Cardiology follow-up encounter Chronic anticoagulation Chronic cellulitis Depression Diabetes Dietary restriction Essential (primary) hypertension Fall Former smoker History of echocardiogram History of edema History of pain when walking History of ulceration HTN (hypertension) Hyperglycemia due to diabetes mellitus Hyperlipidemia Insulin dependent diabetes mellitus Leg cramps Low iron Lower extremity neuropathy Morbid obesity New onset atrial fibrillation (10/01/20) Obstructive sleep apnea Pickwickian syndrome Restless legs Shortness of breath on exertion Streptococcal bacteremia Thyroid nodule Type 2 diabetes mellitus Wears glasses Home Medications losartan 100 mg tablet 100 mg PO QHS Check with primary doctor 04/04/14 [History Last Taken 05/20/23] metformin 1,000 mg tablet 1,000 mg PO BIDCM diabetes 04/04/14 [History Last Taken 05/21/23] amlodipine 5 mg tablet 5 mg PO QHS BP 10/01/20 [History Last Taken 05/20/23] wsgkpggl-nj-yirgu 300 mcg-K 60 mcg-lycop 600 mcg-lutein 300 mcg tablet 1 tablet PO DAILY supplemetn 10/01/20 [History Last Taken 05/21/23] metoprolol succinate 100 mg tablet,extended release 24 hr (Toprol XL) 100 mg PO QHS Check with primary doctor 12/03/20 [History Last Taken 05/20/23] insulin glargine U-300 conc 300 unit/mL (3 mL) subcutaneous pen (Toujeo Max U- 300 SoloStar) 55 unit subcut QHS diabetes 09/27/22 [History Last Taken 05/20/23] apixaban 5 mg tablet 5 mg PO BID blood thinner 11/29/22 [History Last Taken 05/21/23] gabapentin 800 mg tablet 800 mg PO TID neuropathy 11/29/22 [History Last Taken 05/21/23] Allergy/AdvReac Type Severity Reaction Status Date / Time ampicillin Allergy Unknown Verified 03/24/23 10:59 peanut Allergy NEEDS Verified 11/28/22 04:32 FOLLOW-UP Penicillins Allergy Unknown Verified 11/28/22 04:32 Family History Mother Heart disease Diabetes Father Heart disease Cancer Surgical History History of amputation of toe History of wisdom tooth extraction Social History Smoking Status: Former smoker how long ago did patient quit smokin alcohol intake: never substance use type: does not use caffeine: Yes ROS Constitutional Constitutional: Reports fatigue, malaise and weakness; Denies change in weight, chills or fever(s) Eyes Eyes: Denies change in vision Cardiovascular Cardiovascular: Denies chest pain, edema, lightheadedness or orthopnea Respiratory/Chest Respiratory/Chest: Reports shortness of breath with exertion; Denies cough, productive cough, shortness of breath at rest or wheezing Gastrointestinal Gastrointestinal: Denies abdominal pain, constipation, diarrhea, nausea or vomiting Genitourinary Genitourinary: Reports nocturia and urinary frequency; Denies burning urination,dysuria, urinary hesitancy or urinary urgency Musculoskeletal Musculoskeletal: Denies arthralgias or back pain Neurologic Neurologic: Denies dizziness, focal weakness, headache(s), numbness or paresthesias Vital Signs Vital Signs Vital Signs: 05/21/23 12:47 05/21/23 12:57 05/21/23 12:50 Temperature 99.2 F H Temperature Source Oral Pulse Rate 80 81 Respiratory Rate 20 H 20 H Respiratory Effort Normal Non-Labored Respiratory Depth Normal Respiratory Pattern Normal Blood Pressure 143/70 H 119/90 H Blood Pressure Mean 94 99 Pulse Ox 95 95 Oxygen Delivery Method Room Air Room Air Room Air 05/21/23 15:09 Temperature Temperature Source Pulse Rate 79 Respiratory Rate 15 Respiratory Effort Respiratory Depth Respiratory Pattern Blood Pressure 112/67 Blood Pressure Mean 82 Pulse Ox 92 Oxygen Delivery Method Room Air Weight Weight: 178 kg Body Mass Index (BMI) 59.6 Physical Exam Const alert, oriented x3 and no apparent distress Constitutional Narrative: Elderly male, super morbidly obese, laying comfortably in bed, conversing normally, no acute distress. General Appearance: cooperative and comfortable HEENT normocephalic, head/scalp atraumatic, hearing grossly normal bilaterally, nasal mucous membranes and turbinates normal and moist oral mucous membranes Eyes PERRL, EOMs intact bilaterally and conjunctivae normal Neck full ROM, no lymphadenopathy and supple Lymph Lymphatic: no lymphadenopathy noted Chest inspection of chest normal Resp Resp Narrative: Good air movement bilaterally, no wheezing or crackles noted. Satting in low 90s on room air, no increased work of breathing noted. Cardio regular rate, regular rhythm, no murmurs and peripheral pulses 2+ throughout GI normal to inspection, nondistended, normoactive bowel sounds, soft to palpation,non-tender and non-distended Back/Spine normal ROM Extremity Extremity Narrative: Severe erythema with warmth, swelling and mild tenderness to palpation in right leg from foot up to below the knee. Only mild skin changes and edema in left lower leg. Neuro moves all extremities and no focal motor deficits Speech: speech normal Psych mental status grossly normal Results Lab / Micro Data 05/21/23 13:25 05/21/23 13:25 Labs: Laboratory Results - last 24 hr 05/21/23 13:25: WBC 10.6, RBC 4.93, Hgb 12.8 L, Hct 41.7, MCV 84.6, MCH 26.0 L, MCHC 30.7 L, RDW Std Deviation 43.4, RDW Coeff of Jada 14.2, Plt Count 173, MPV 11.0, Immature Gran % (Auto) 0.400, Neut % (Auto) 74.4 H, Lymph % (Auto) 16.0 L,Navarro % (Auto) 7.7, Eos % (Auto) 1.0, Baso % (Auto) 0.5, Absolute Neuts (auto) 7.9 H, Absolute Lymphs (auto) 1.70, Nucleated RBC % 0, Sodium 136, Potassium 3.9, Chloride 100, Carbon Dioxide 32.0, Anion Gap 4 L, BUN 16, Creatinine 0.94, Estim Creat Clear Calc 72.77, Est GFR (MDRD) Af Amer 102, Est GFR (MDRD) Non-Af 84, BUN/Creatinine Ratio 17.0, Glucose 293 H, Lactic Acid 2.7 H*, Calcium 9.2, Troponin I High Sens 10, B-Natriuretic Peptide 29.8 05/21/23 15:05: Urine Color Yellow, Urine Clarity Clear, Urine pH 5.0, Ur Specific Stacy 1.020, Urine Protein 30 H, Urine Glucose (UA) 1000 H, Urine Ketones 5 H, Urine Occult Blood 10 H, Urine Nitrite Negative, Urine Bilirubin Negative, Urine Urobilinogen Normal, Ur Leukocyte Esterase Negative, Urine RBC 0SEEN, Urine WBC 0 SEEN, Ur Squamous Epith Cells 0-5 SEEN, Uric Acid Crystals RARE, Urine Bacteria RARE, Urine Mucus 0 SEEN Micro: Microbiology 05/21/23 13:15 Nasal Secretion SARS-CoV-2 & FLU Antigen (Rapid) - Final Imagaing Radiology Impression Chest X-Ray 05/21/23 13:19 IMPRESSION: No acute cardiopulmonary pathology and no significant interval change when compared to 11/28/2022. Electronically Signed: Mateo Huston MD at 13:34 EST , Assessment & Plan Assessment/Plan (1) Weakness: (2) Hypoxemia: (3) Cellulitis of right leg: PLAN: Plan Patient is a 67-year-old male who presented to [facility] ED on 05/21/2023 from home with multiple concerns including shortness of breath, generalized weakness and worsening right lower extremity swelling. 1. Hypoxia, concern for obesity hypoventilation syndrome, history of TODD Patient was reportedly 88% on room air with EMS. Dropped to 86% with ambulationin the ED. Chest x-ray nonacute. Patient afebrile, normal WBC count, normotensive, normal heart rate. Suspect this is chronic hypoxia secondary to obesity hypoventilation syndrome. Bicarb 32 on BMP, previous bicarb values of 29 in November and 31 in March; evidence that patient is a chronic CO2 retainer, is well compensated. Patient satting in low 90s on room air at rest, breathing comfortably. ? Admit under inpatient status to [facility]. Will obtain ABG with patient on roomair to assess for OHS. Continue home BiPAP at night. Incentive spirometry ordered. 2. Generalized weakness, debility, super morbid obesity BMI 59 on admit. Patient lives at home by himself. Was previously hospitalizedin 11/2022 for a UTI, was discharged to SNF at the [facility] at that time. 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 However, has noticed that he has felt weaker than his baseline over the past several days. Suspect he has some degree of dehydration from volume losses from poorly controlled diabetes as noted below. ? PT/OT/case management consulted. Severe obesity complicates patient's care and prognosis. 3. 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 Significantly different than left lower extremity. Patient has history of left foot OM with fifth ray partial amputation in 11/2020. Continues to be high risk for osteomyelitis given poorly controlled diabetes, obesity with persistent lower extremity edema. Notably hemodynamically stable, afebrile and normal WBC count on admit as noted above, but lactate is mildly elevated at 2.7. Notably, wound cultures from left foot in 2020 grew strep, Enterococcus, Proteus, anaerobe x 2. Infectious disease followed at that time, was treated with vancomycin, ceftriaxone and Flagyl whileinpatient, then discharged on Keflex and Flagyl to complete 6-week course as well as a 10-day course of linezolid for enterococcal coverage. ? Will obtain right lower leg x-rays to evaluate for osteomyelitis for now; low threshold to obtain MRI of right lower extremity pending x-ray results. Will treat with vancomycin, ceftriaxone and Flagyl for now. Infectious disease and podiatry consulted. CRP ordered. Trend lactate. 4. 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 UA showed 1000 glucose in the urine. Previous A1c values consistently 9 to 10% for the last few years, most recent A1c 10.2% on 04/15/2023. Home regimen of Toujeo 55 units at night, metformin 1000 mg twice daily. Patient reports compliance with these medications. Occasionally checks her sugars at home, readings typically around the mid 200s. Reports moderate polyuria and polydipsia at baseline. On gabapentin 800 mg 3 times daily for chronic neuropathy of his lower extremities. ? We will start Lantus 45 units at night, Humalog 10 units 3 times daily AC withhigh-dose sliding scale insulin, adjust regimen as needed. Continue home gabapentin. 5. Atrial fibrillation on Eliquis Follows with cardiology, last office visit on 03/24/2023. Appears to be in persistent atrial fibrillation at this point. EKG on admit showed A-fib with heart rate of 80. ? Continue home Eliquis and Toprol. 6. Hypertension Home medications of amlodipine 5 mg daily, losartan 100 mg daily. Normotensive to mildly hypotensive in ED. ? Will hold home amlodipine and losartan for now, restart as needed. DVT prophylaxis: Eliquis CODE STATUS: Full code, verified Expected disposition: Home with home health care versus SNF, 2 to 3 days Total clinical time spent by myself addressing the patient's medical issues, reviewing all the data, and collaborating with patient's care team: 55 minutes. Charges/Coding Visit Charges Inpatient E&M: 71228 Init Hosp L2 12/02/23 1751 <Electronically signed by Haily Santos DO> Cosigner Signature (if applicable): CC: Dr. Haily Santos DO; Dr. Bernabe Reese MD~ Signed [facility] Work Phone: 1(529) 587-982106-16-[address] [facility] December 03, 2022 9:51am Note Date/Time December 03, 2022 9:46 am [facility] Medical Records Department [address] [place] [address] Transfer to [facility] MR#: [id number] Acct: [id number] Name: LANI ZARAGOZA Rep #:[id number] : 1955 67 From: Hilda Zimmerman MD PCP: Dr. Bernabe Reese MD Status:AD M IN Certification of patient admission REQUIRED AT TIME OF ADMISSION. I CERTIFY THAT POST-HOSPITAL ECF SERVICES ARE REQUIRED TO BE GIVEN ON AN IN-PATIENT BASIS BECAUSE OF THE ABOVE NAMED PATIENT'S NEED FOR [facility]PC CARE ON A CONTINUING BASIS FOR THE CONDITION(S) FOR WHICH HE/SHE WAS RECEIVING IN-PATIENT HOSPITAL SERVICES PRIOR TO HIS/HER TRANSFER TO THE F. 12/03/22 0951<Electronically signed by Hilda Zimmerman MD> Diet Diet Order/Speech Therapy: 11/28/22 13:56 Diet: Cardiac: Calorie-Controlled Food consistency:: Regular Liquid Consistency:: Regular/Thin Dietary Modifications:: Consistent Carbohydrate How many daily calories?: 2000 calorie Routine Orders/Code Status Enema Type: Fleetz Enema Frequency: Daily PRN Suppository Type: Dulcolax 10mg Suppository Frequency: Daily PRN O2 Frequency: PRN Keep PO Greater than or Equal to (%): 90 Wound(s) center abd under panus: Wound Type: excoriation groin/scrotum/bilat inner thighs: Wound Type: excoriation Right knee: Wound Type: Abrasion Therapies Weight Bearing: Weight bearing as tolerated Physical Therapy: Eval and Treat Occupational Therapy: Eval and Treat Problem/Diagnosis (1) Acute confusion: Status: Acute Code(s): R41.0 - Disorientation, unspecified (2) Acute UTI: Status: Acute Code(s): N39.0 - Urinary tract infection, site not specified (3) Leukocytosis: Status: Acute Code(s): D72.829 - Elevated white blood cell count, unspecified (4) Atrial fibrillation with RVR: Status: Acute Code(s): I48.91 - Unspecified atrial fibrillation Plan #Afib * RVR now resolved. * now on metoprolol. * on eliquis * #Acute metabolic encephalopathy due to UTI * encephalopathy has resolved. Now alert and oriented. * urinalysis had 3+ bacteria * urine cultures growing Strep agalactiae * blood cultures growing Strep agalactiae * o IV ceftriaxone. * ID on board. Ceftriaxone dose increased to 2gram q24 * repeat blood cultures showed no growth after 48 hours. * per ID, to discharge on PO keflex 500mg tid with a stop date of 12/08/2022 * * #Strep bacteremia * blood cultures positive for Strep agalactiae * ID on board * repeat blood cultures showed no growth after 48 hours * on IV ceftriaxone * #UTi: as above #TYpe 2 diabetes mellitus * On Lantus 50 units nightly. * Insulin Sliding scale. Accu-Cheks ACHS. * #Hypertension: on metoprolol, losartan and amlodipine, DVT prophylaxis: eliquis CODE STATUS: full code * * Disposition; for DC to SNF tomorrow if precert obtained. Allergies/Procedures Done in Hospital Allergies ampicillin Allergy (Verified 11/28/22 04:32) Unknown peanut Allergy (Verified 11/28/22 04:32) NEEDS FOLLOW-UP PEANUT BUTTER Penicillins Allergy (Verified 11/28/22 04:32) Unknown Type of Care/Length of Stay Estimated LOS: Convalescent Care Less Than 30 days Type of Care Needed: Skilled Rehab Potential: Fair Prognosis: Fair Additional Orders/Day of Discharge Day of Discharge: 12/03/22 Dietary and Speech Recommendations Dietitian Recommendations/Changes: Will adjust diet to 2000 calorie/consistent carbohydrate; cardiac. Will provide diet education prior to d/c. Recommend PCP referral to [facility] for ongoing education and follow-up. Discharge Plan Admission Admit Date/Time: 11/28/22 12:13 Primary Reason for Your Visit: UTI Attending Provider: Hilda Zimmerman Primary Care Provider: Bernabe Reese Consulting Providers: Gregorio Mccarthy Instructions Patient Instructions: Urinary Tract Infections in Men Discharge Orders/Prescriptions Prescriptions: New cephalexin 500 mg capsule 500 mg PO TID Qty: 18 0RF Continued Toujeo Max U-300 SoloStar 300 unit/mL (3 mL) insulin pen 50 unit subcut QHS ferrous sulfate [FeroSul] 325 mg (65 mg iron) tablet 325 mg PO DAILY Label Comments: TAKE 1 TABLET BY MOUTH TWICE DAILY metformin 1,000 MG tablet 1,000 mg PO BIDCM losartan 100 MG tablet 100 mg PO QHS amlodipine 5 MG tablet 5 mg PO QHS zvmmlsje-vpr-UQ-lycopen-lutein 1 EACH tablet 1 tablet PO DAILY metoprolol succinate [Toprol XL] 100 mg Tablet Extended Release 24 Hr 100 mg PO QHS apixaban 5 mg tablet 5 mg PO BID gabapentin 800 mg tablet 800 mg TID Label Comments: TAKE 1 TABLET THREE TIMES DAILY Referrals / Follow Up: Bernabe Reese MD [Primary Care Provider] - Within 2 Weeks Disposition Disposition (needs filled in before D/C Order can be placed): Nursing Home Facility 12/03/22 0922 <Electronically signed by Hilda Zimmerman MD> Cosigner Signature (if applicable): CC: Dr. Bernabe Reese MD; Dr. Gregorio Mccarthy MD ~ [facility] Work Phone: [phone]) [phone] [facility] December 02, 2022 4:55pm Note Date/Time December 01, 2022 11:[address] [facility] Medical Records Department [address] [place] [address] Progress Note 12/01/22 1143 MR#: [id number] Acct: [id number] Name: LANI ZARAGOZA Rep #:[id number] : 1955 67 From: Hilda Zimmerman MD PCP: Dr. Bernabe Reese MD Status:AD M IN Location: [place] [address] Subjective Subjective Patient seen and examined. He said he was not feeling as well as he did yesterday. However he cannot pinpoint any significant complaints. He denies any fever, chills, nausea or vomiting or burning with urination or any other symptoms. Review of systems otherwise negative. He has remained hemodynamically stable. Objective Data Objective Data Vital Signs: Vital Signs Temp Pulse Resp BP Pulse Ox O2 Del Method O2 Flow Rate 98.5 F 88 18 114/49 L 94 Room Air 2 12/01/22 09:00 12/01/22 09:00 12/01/22 09:00 12/01/22 09:00 12/01/22 09:00 12/01/22 09:00 11/30/22 09:36 FiO2 30 11/30/22 06:58 Oxygen Flow Rate (L/min) 2 Oxygen Delivery Method Room Air Weight: 386 lb 11.053 oz Body Mass Index (BMI) 58.8 Intake & Output: Intake and Output for Last 24 Hours 11/29/22 11/30/22 12/01/22 23:59 23:59 23:59 Intake Total 1671.83 / 1671.83 600 / 600 540 / 540 Output Total 200 / 700 1300 / 1355 655 / 655 Balance 1471.83 / 971.83 -700 / -755 -115 / -115 Lab / Micro Data Result Diagrams: 12/01/22 06:40 12/01/22 06:40 Labs: Laboratory Results - last 24 hr 11/30/22 16:06: POC Glucose 287 H 11/30/22 21:13: POC Glucose 344 H 12/01/22 06:40: WBC 9.0, RBC 4.87, Hgb 13.7, Hct 43.0, MCV 88.3 D, MCH 28.1, MCHC 31.9 L, RDW Std Deviation 45.5 H, RDW Coeff of Jada 14.2, Plt Count 143 L, MPV 10.2, Immature Gran % (Auto) 0.400, Neut % (Auto) 70.4 H, Lymph % (Auto) 18.9 L, Navarro % (Auto) 8.8, Eos % (Auto) 1.2, Baso % (Auto) 0.3, Absolute Neuts (auto) 6.3, Absolute Lymphs (auto) 1.69, Nucleated RBC % 0 12/01/22 06:40: Sodium 135 L, Potassium 4.5, Chloride 104, Carbon Dioxide 28.0, Anion Gap 3 L, BUN 23 H, Creatinine 0.85, Estim Creat Clear Calc 80.47, Est GFR (MDRD) Af Amer 115, Est GFR (MDRD) Non-Af 95, BUN/Creatinine Ratio 27.0 H, Glucose 260 H, Calcium 8.7 12/01/22 06:53: POC Glucose 249 H Micro: Microbiology 11/28/22 11:52 Urine, Catheterized Urine Culture - Preliminary Streptococcus agalactiae (B) 11/28/22 10:12 Blood Culture (Wb) - Anticubital Right Bacteria Detection (PCR) - Final Streptococcus agalactiae (B) 11/28/22 10:12 Blood Culture (Wb) - Anticubital Right Blood Culture - Final Streptococcus agalactiae (B) 11/28/22 10:30 Blood Culture (Wb) - Right Hand Blood Culture - Preliminary Streptococcus agalactiae (B) Radiography Diagnostic Testing: Radiology Impression Abdomen/Pelvis CT 11/30/22 10:47 IMPRESSION: No evidence of pyelonephritis. Scattered sigmoid diverticula. Fatty infiltration of the liver. Electronically Signed: Amilcar León MD at 13:15 EDT , Rhythm Strip Rhythm Strip: A-fib Rate: 136 Ectopy: None Physical Exam Const alert and oriented x3 Constitutional Narrative: obese General Appearance: cooperative and well developed Orientation / Consciousness: confused, disoriented and lethargic HEENT normocephalic, head/scalp atraumatic, hearing grossly normal bilaterally and moist oral mucous membranes Eyes PERRL and EOMs intact bilaterally Neck no lymphadenopathy and supple Lymph Lymphatic: no lymphadenopathy noted Resp normal respiratory effort, no retractions, no use of accessory muscles and clearto auscultation bilaterally Resp Narrative: mildly diminished breath sounds bibasally, no wheezes or crackles. On room air Cardio regular rate, regular rhythm, S1 normal heart sound and S2 normal heart sound GI normal to inspection, nondistended, normoactive bowel sounds, soft to palpation,non-tender and non-distended Extremity normal to inspection, full ROM and no clubbing, cyanosis or edema Extremity Narrative: mild erythema of LLE, with superficial ulceration on back of left calf. General Extremity: clubbing and cyanosis Neuro CN's II-XII intact bilaterally, moves all extremities and no focal motor deficits Neuro Narrative: confused. Sensorium / Orientation: awake and alert Motor Exam: strength 5/5 throughout Psych thought process normal Psych Narrative: confused Appearance: appropriate Assessment & Plan Assessment/Plan (1) Acute confusion: (2) Acute UTI: (3) Leukocytosis: (4) Atrial fibrillation with RVR: PLAN: Plan #Afib * RVR now resolved. * now on metoprolol. Weaned off cardiem drip * wean off cardizem drip as tolerated * switch to PO metoprolol * on eliquis * #Acute metabolic encephalopathy due to UTI * encephalopathy has resolved. Now alert and oriented. * urinalysis had 3+ bacteria * urine cultures growing Strep agalactiae * blood cultures growing Strep agalactiae * o IV ceftriaxone. * ID on board. Ceftriaxone dose increased to 2gram q24 * repeat blood cultures pending. * #Strep bacteremia * blood cultures positive for Strep agalactiae * ID on board * repeat blood cultures pending * on IV ceftriaxone * #UTi: as above #TYpe 2 diabetes mellitus * On Lantus 50 units nightly. * Insulin Sliding scale. Accu-Cheks ACHS. * #Hypertension: on metoprolol, losartan and amlodipine, which were held on admission due to afib wih RVR and being on cardizem drip DVT prophylaxis: eliquis CODE STATUS: full code * Charges/Coding Visit Charges Inpatient E&M: 69624 Subs Hosp L2 12/02/22 9975 <Electronically signed by Hilda Zimmerman MD> Hilda Zimmerman MD Cosigner Signature (if applicable): CC: ~ Signed [facility] Work Phone: [phone]) [phone] [facility] December 02, 2022 4:55pm Note Date/Time December 02, 2022 1:[address] [facility] Medical Records Department [address] [facility] [place] [address] Progress Note 12/02/22 1313 MR#: [id number] Acct: [id number] Name: LANI ZARAGOZA Rep #:[id number] : 1955 67 From: Hilda Zimmerman MD PCP: Dr. Bernabe Reese MD Status:AD M IN Location: [place] [address] 1 Subjective Subjective Patient seen and examined. He had no active complaints. He says he is feeling better but not completely at her baseline. Review of systems is otherwise negative. He has remained hemodynamically stable. Objective Data Objective Data Vital Signs: Vital Signs Temp Pulse Resp BP Pulse Ox O2 Del Method O2 Flow Rate 98.1 F 81 18 144/65 H 96 Room Air 2 12/02/22 09:27 12/02/22 09:27 12/02/22 09:27 12/02/22 09:27 12/02/22 09:27 12/02/22 09:32 11/30/22 09:36 FiO2 30 11/30/22 06:58 Oxygen Flow Rate (L/min) 2 Oxygen Delivery Method Room Air Weight: 389 lb 12.436 oz Body Mass Index (BMI) 59.2 Intake & Output: Intake and Output for Last 24 Hours 11/30/22 12/01/22 12/02/22 23:59 23:59 23:59 Intake Total 600 / 600 612.42 / 612.42 530 / 530 Output Total 1300 / 1355 655 / 2305 2750 / 2750 Balance -700 / -755 -42.58 / -1692.58 -2220 / -2220 Lab / Micro Data Result Diagrams: 12/02/22 09:04 12/02/22 09:04 Labs: Laboratory Results - last 24 hr 12/01/22 17:18: POC Glucose 270 H 12/01/22 21:45: POC Glucose 323 H 12/02/22 06:22: POC Glucose 187 H 12/02/22 09:04: WBC 8.9, RBC 4.69, Hgb 12.9 L, Hct 41.5, MCV 88.5, MCH 27.5, MCHC 31.1 L, RDW Std Deviation 45.0 H, RDW Coeff of Jada 14.1, Plt Count 147 L, MPV 10.3, Immature Gran % (Auto) 0.700, Neut % (Auto) 71.8 H, Lymph % (Auto) 17.4 L, Navarro % (Auto) 8.0, Eos % (Auto) 1.5, Baso % (Auto) 0.6, Absolute Neuts (auto) 6.4, Absolute Lymphs (auto) 1.54, Nucleated RBC % 0 12/02/22 09:04: Sodium 135 L, Potassium 4.1, Chloride 106, Carbon Dioxide 21.0, Anion Gap 8, BUN 16, Creatinine 0.66 L, Estim Creat Clear Calc 68.40, Est GFR (MDRD) Af Amer 155, Est GFR (MDRD) Non-Af 128, BUN/Creatinine Ratio 24.4 H, Glucose 203 H, Calcium 8.6 12/02/22 11:37: POC Glucose 268 H Micro: Microbiology 11/28/22 10:30 Blood Culture (Wb) - Right Hand Blood Culture - Final Streptococcus agalactiae (B) 11/30/22 08:15 Blood Culture (Wb) - Left Hand Blood Culture - Preliminary No growth in 48 hours. 11/30/22 08:23 Blood Culture (Wb) - Right Hand Blood Culture - Preliminary No growth in 48 hours. 11/28/22 11:52 Urine, Catheterized Urine Culture - Final Streptococcus agalactiae (B) Presumptive C albicans 11/28/22 10:12 Blood Culture (Wb) - Anticubital Right Bacteria Detection (PCR) - Final Streptococcus agalactiae (B) 11/28/22 10:12 Blood Culture (Wb) - Anticubital Right Blood Culture - Final Streptococcus agalactiae (B) Rhythm Strip Rhythm Strip: A-fib Rate: 136 Ectopy: None Physical Exam Const alert and oriented x3 Constitutional Narrative: obese General Appearance: cooperative and well developed Orientation / Consciousness: confused, disoriented and lethargic HEENT normocephalic, head/scalp atraumatic, hearing grossly normal bilaterally and moist oral mucous membranes Eyes PERRL and EOMs intact bilaterally Neck no lymphadenopathy and supple Lymph Lymphatic: no lymphadenopathy noted Resp normal respiratory effort, no retractions, no use of accessory muscles and clearto auscultation bilaterally Resp Narrative: mildly diminished breath sounds bibasally, no wheezes or crackles. On room air Cardio regular rate, regular rhythm, S1 normal heart sound and S2 normal heart sound Cardio Narrative: afib with RVR GI normal to inspection, nondistended, normoactive bowel sounds, soft to palpation,non-tender and non-distended Extremity normal to inspection, full ROM and no clubbing, cyanosis or edema Extremity Narrative: mild erythema of LLE, with superficial ulceration on back of left calf. Has improved significantly. General Extremity: clubbing and cyanosis Skin General Skin Exam: no breakdown Neuro CN's II-XII intact bilaterally, moves all extremities and no focal motor deficits Sensorium / Orientation: awake and alert Motor Exam: strength 5/5 throughout Psych thought process normal Appearance: appropriate Assessment & Plan Assessment/Plan (1) Acute confusion: (2) Acute UTI: (3) Leukocytosis: (4) Atrial fibrillation with RVR: PLAN: Plan #Afib * RVR now resolved. * now on metoprolol. * on eliquis * #Acute metabolic encephalopathy due to UTI * encephalopathy has resolved. Now alert and oriented. * urinalysis had 3+ bacteria * urine cultures growing Strep agalactiae * blood cultures growing Strep agalactiae * o IV ceftriaxone. * ID on board. Ceftriaxone dose increased to 2gram q24 * repeat blood cultures showed no growth after 48 hours. * per ID, to discharge on PO keflex 500mg tid with a stop date of 12/08/2022 * * #Strep bacteremia * blood cultures positive for Strep agalactiae * ID on board * repeat blood cultures showed no growth after 48 hours * on IV ceftriaxone * #UTi: as above #TYpe 2 diabetes mellitus * On Lantus 50 units nightly. * Insulin Sliding scale. Accu-Cheks ACHS. * #Hypertension: on metoprolol, losartan and amlodipine, DVT prophylaxis: eliquis CODE STATUS: full code * * Disposition; for DC to SNF tomorrow if precert obtained. Charges/Coding Visit Charges Inpatient E&M: 26829 Subs Hosp L2 12/02/22 1268 <Electronically signed by Hilda Zimmerman MD> Hilda Zimmerman MD Cosigner Signature (if applicable): CC: ~ Signed [facility] Work Phone: [phone]) [phone] Mccarthy [facility] December 02, 2022 11:29am Note Date/Time December 02, 2022 11:[address] [facility] Medical Records Department [address] [place] [address] Progress Note - Infect Disease 12/02/22 1128 MR#: [id number] Acct: [id number] Name: LANI ZARAGOZA Rep #:[id number] : 1955 67 From: Gregorio boston MD PCP: Dr. Bernabe Reese MD Status:AD M IN Location: [place] [address] Physical Exam Narrative Feeling about the same today, no fever, no abd pain Const alert and no apparent distress General Appearance: cooperative Resp normal air movement and clear to auscultation bilaterally Cardio regular rate and regular rhythm GI soft to palpation, non-tender and non-distended Extremity General Extremity: edema Skin Skin Narrative: Mild BLE erythema ID ID: Route of nutrition/ use of supplements: [] Nutritional Intake: [] IV Site: [] Beard Catheter: [] Assessment & Plan Assessment/Plan (1) Acute UTI: (2) Streptococcal bacteremia: PLAN: Strep bacteremia from suspected urinary vs skin source - CT showed no pyelo/stone/hydro. BLE edema, not clear that cellulitis is present. On ceftriaxone. Plan for discharge will be keflex 500mg tid with stop date 12/08/22. Will follow 12/02/22 1129 <Electronically signed by Gregorio Mccarthy MD> Cosigner Signature (if applicable): CC: ~ Signed [facility] Work Phone: [phone]) 762-153806-14-2023 Consult note Author Lawrence Rodriguez [facility] December 01, 2022 9:44pm Note Date/Time December 01, 2022 5:34 am [facility] Medical Records Department [address] [place] [address] Pharmacokinetic/Renal -Consult 12/01/22 0533 MR#: [id number] Acct: [id number] Name: LANI ZARAGOZA Rep #:[id number] : 1955 67 From: Saqib Dickey PCP: Dr. Bernabe Reese MD Status:AD M IN Y Location: [place] [address] Consult Pharmacy has been consulted to manage selected antiobiotic: Vancomycin Type of Consult: New start Prior Doses of Antibiotics Received/Current Regimen: Medications Vancomycin HCl 1,750 mg/ (Sodium Chloride) 535 mls @ 250 mls/hr IV Q12H TRACI Vancomycin HCl 2,000 mg/ (Sodium Chloride) 540 mls @ 250 mls/hr IV X1 ONE Stop: 12/01/22 06:39 Last Admin: 12/01/22 05:22 Dose: 250 mls/hr Labs: Sodium 135 mmol/L (136-145) L 11/30/22 05:22 Potassium 3.6 mmol/L (3.5-5.1) 11/30/22 05:22 Chloride 103 mmol/L (98-107) 11/30/22 05:22 Carbon Dioxide 27.0 mmol/L (21.0-32.0) 11/30/22 05:22 Anion Gap 5 (5-15) 11/30/22 05:22 BUN 25 mg/dL (7-18) H 11/30/22 05:22 Creatinine 0.90 mg/dL (0.70-1.30) 11/30/22 05:22 Est GFR (MDRD) Af Amer 108 mL/min (>60) 11/30/22 05:22 Est GFR (MDRD) Non-Af 89 mL/min (>60) 11/30/22 05:22 BUN/Creatinine Ratio 27.7 RATIO (10-20) H 11/30/22 05:22 Glucose 237 mg/dL (74-106) H 11/30/22 05:22 Microbiology: Microbiology 11/28/22 11:52 Urine, Catheterized Urine Culture - Preliminary Streptococcus agalactiae (B) 11/28/22 10:12 Blood Culture (Wb) - Anticubital Right Bacteria Detection (PCR) - Final Streptococcus agalactiae (B) 11/28/22 10:12 Blood Culture (Wb) - Anticubital Right Blood Culture - Final Streptococcus agalactiae (B) 11/28/22 10:30 Blood Culture (Wb) - Right Hand Blood Culture - Preliminary Streptococcus agalactiae (B) Weight used for dosin kg Estimated Creatinine Clearance: 122 by ABW Goal Trough: 10-15 mcg/mL Pharmacy Plan for Drug Dosing: Pharmacy Service will continue to monitor and adjust dosing as required. Follow-Up Labs: Trough Vancomycin Labs to be done on [date and time ordered]: 12/02/22 @1700 12/01/22 0534 <Electronically signed by Saqib hilton > Date _ Saqib Dickey 12/01/222143 <Electronically signed by Lawrence barger MD> Cosigner Signature (if applicable): Date Lawrence Rodriguez MD CC: ~ Signed [facility] Work Phone: [phone]) [phone] Mccarthy [facility] December 01, 2022 1:49pm Note Date/Time December 01, 2022 1:49 pm [facility] Medical Records Department [address] [place] [address] Progress Note - Infect Disease 12/01/22 1348 MR#: [id number] Acct: [id number] Name: LANI ZARAGOZA Rep #:[id number] : 1955 67 From: Gregorio boston MD PCP: Dr. Bernabe Reese MD Status:AD M IN Location: [place] [address] Physical Exam Narrative Feeling ok, some leg swelling, no fever Const alert and no apparent distress General Appearance: cooperative Resp normal air movement and clear to auscultation bilaterally Cardio regular rate and regular rhythm GI soft to palpation, non-tender and non-distended Extremity General Extremity: edema Skin Skin Narrative: mild erythema around BLE lower legs, no warmth, no drainage ID ID: Route of nutrition/ use of supplements: [] Nutritional Intake: [] IV Site: [] Beard Catheter: [] Assessment & Plan Assessment/Plan (1) Acute UTI: (2) Streptococcal bacteremia: PLAN: Strep bacteremia from suspected urinary vs skin source - CT showed no pyelo/stone/hydro. BLE edema, not clear that cellulitis is present. On ceftriaxone, will stop vanc. Will follow 12/01/22 1349 <Electronically signed by Gregorio Mccarthy MD> Cosigner Signature (if applicable): CC: ~ Signed [facility] Work Phone: [phone]) 794-716206-14-2023 Progress note Author Lawrence Rodriguez [facility] December 01, 2022 7:45am Note Date/Time December 01, 2022 7:44 am [facility] Medical Records Department [address] [place] [address] Progress Note - Hospitalist 12/01/22 0743 MR#: [id number] Acct: [id number] Name: LANI ZARAGOZA Rep #:[id number] : 1955 67 From: Lawrence Rodriguez MD PCP: Dr. Bernabe Reese MD Status:AD M IN Location: [place] [address] Hospitalist Note Vancomycin was started overnight due to erythematous extensive swelling in the lower extremity on left side - concerning for cellulitis. Would appreciate ID comments regarding need for ongoing Vanc vs resuming with ceftriaxone alone. 12/01/2245 <Electronically signed by Lawrence Rodriguez MD> Cosigner Signature (if applicable): CC: ~ Signed [facility] Work Phone: [phone]) [phone] Zimm[address] [facility] November 30, 2022 4:38pm Note Date/Time November 29, 2022 3:19 pm [facility] Medical Records Department [address] [place] [address] Progress Note 11/29/22 1512 MR#: [id number] Acct: [id number] Name: LANI ZARAGOZA Rep #:[id number] : 1955 67 From: Hilda Zimmerman MD PCP: Dr. Bernabe Reese MD Status:AD M IN Location: [place] [address] Subjective Subjective Patient seen and examined. He had no complaints remains confused. Heart rate is much better controlled. He has remained hemodynamically stable. Review of systems otherwise negative. Objective Data Objective Data Vital Signs: Vital Signs Temp Pulse Resp BP Pulse Ox O2 Del Method O2 Flow Rate 98.8 F 71 20 H 124/62 H 95 Nasal Cannula 2 11/29/22 12:00 11/29/22 15:00 11/29/22 15:00 11/29/22 15:00 11/29/22 15:00 11/29/22 15:00 11/29/22 15:00 FiO2 30 11/29/22 07:45 Oxygen Flow Rate (L/min) 2 Oxygen Delivery Method Nasal Cannula Weight: 380 lb 15.34 oz Body Mass Index (BMI) 57.7 Intake & Output: Intake and Output for Last 24 Hours 11/27/22 11/28/22 11/29/22 23:59 23:59 23:59 Intake Total 2178.84 / 2193.84 1662.50 / 1662.50 Output Total 600 / 600 200 / 200 Balance 1578.84 / 1593.84 1462.50 / 1462.50 Lab / Micro Data Result Diagrams: 11/29/22 04:50 11/29/22 04:50 Labs: Laboratory Results - last 24 hr 11/28/22 16:03: Troponin I High Sens 65 11/28/22 16:14: POC Glucose 324 H 11/28/22 20:49: POC Glucose 295 H 11/29/22 04:50: WBC 10.8, RBC 4.49 L, Hgb 12.2 L, Hct 37.5 L, MCV 83.5, MCH 27.2, MCHC 32.5, RDW Std Deviation 43.0, RDW Coeff of Jada 14.1, Plt Count 136 L,MPV 10.2, Immature Gran % (Auto) 0.600, Neut % (Auto) 82.7 H, Lymph % (Auto) 11.4 L, Navarro % (Auto) 5.1, Eos % (Auto) 0.0, Baso % (Auto) 0.2, Absolute Neuts (auto) 8.9 H, Absolute Lymphs (auto) 1.23, Nucleated RBC % 0 11/29/22 04:50: Sodium 133 L, Potassium 3.2 L, Chloride 101, Carbon Dioxide 26.0, Anion Gap 6, BUN 16, Creatinine 0.84, Estim Creat Clear Calc 81.43, Est GFR (MDRD) Af Amer 118, Est GFR (MDRD) Non-Af 97, BUN/Creatinine Ratio 19.1, Glucose 268 H, Calcium 7.6 L 11/29/22 06:43: POC Glucose 287 H 11/29/22 11:38: POC Glucose 340 H Micro: Microbiology 11/28/22 11:52 Urine, Catheterized Urine Culture - Preliminary Streptococcus agalactiae (B) 11/28/22 10:12 Blood Culture (Wb) - Anticubital Right Bacteria Detection (PCR) - Final Streptococcus agalactiae (B) 11/28/22 10:12 Blood Culture (Wb) - Anticubital Right Blood Culture - Preliminary 11/28/22 10:30 Blood Culture (Wb) - Right Hand Blood Culture - Preliminary Streptococcus group B Radiography Diagnostic Testing: Radiology Impression Echocardiogram 11/29/22 05:55 Interpretation Summary The estimated ejection fraction is 65 %. The left atrium is mildly enlarged. Unable to assess diastolic dysfunction. Ordering Physician: Hilda Zimmerman Referring Physician: Bernabe Reese Performed By: Stanley SALTER RDCS, Melissa and Student Rhythm Strip Rhythm Strip: A-fib Rate: 136 Ectopy: None Physical Exam Const alert Orientation / Consciousness: confused, disoriented and lethargic HEENT normocephalic, head/scalp atraumatic, hearing grossly normal bilaterally and moist oral mucous membranes Eyes PERRL and EOMs intact bilaterally Neck no lymphadenopathy and supple Resp normal respiratory effort, no retractions, no use of accessory muscles and clearto auscultation bilaterally Cardio S1 normal heart sound and S2 normal heart sound Cardio Narrative: afib with RVR GI normal to inspection, nondistended, normoactive bowel sounds, soft to palpation,non-tender and non-distended Extremity normal to inspection, full ROM and no clubbing, cyanosis or edema Neuro CN's II-XII intact bilaterally and moves all extremities Neuro Narrative: confused. Sensorium / Orientation: awake and alert Motor Exam: strength 5/5 throughout Psych Psych Narrative: confused Assessment & Plan Assessment/Plan (1) Acute confusion: (2) Acute UTI: (3) Leukocytosis: (4) Atrial fibrillation with RVR: PLAN: Plan #Afib with RVR * improved. HR better controlled * wean off cardizem drip as tolerated * switch to PO metoprolol * on therapeutic lovenox * * #Acute metabolic encephalopathy due to UTI * on urine had 3+ bacteria * urine cultures growing Strep agalactiae * blood cultures growing Strep agalactiae * o IV ceftriaxone; will continue for now. * #UTi: as above #TYpe 2 diabetes mellitus * On Lantus 50 units nightly. * Insulin Sliding scale. Accu-Cheks ACHS. * #Hypertension: Hold BP meds as he is on Cardizem drip. Hold metoprolol and losartan as well as amlodipine. DVT prophylaxis: Therapeutic Lovenox CODE STATUS: Presumed full code was unable to discuss with patient was confused. * Charges/Coding Visit Charges Inpatient E&M: 29228 Subs Hosp L3 11/30/22 1638 <Electronically signed by Hilda Zimmerman MD> Hilda Zimmerman MD Cosigner Signature (if applicable): CC: ~ Signed [facility] Work Phone: 1(679) 506-497006-13-[address] [facility] November 30, 2022 4:38pm Note Date/Time November 30, 2022 10:[address] [facility] Medical Records Department [address] [place] [id number] Progress Note 11/30/22 1033 MR#: [id number] Acct: [id number] Name: LANI ZARAGOZA Rep #:[id number] : 1955 67 From: Hilda Zimmerman MD PCP: Dr. Bernabe Reese MD Status:AD M IN Location: [place] [address] Subjective Subjective Patient seen and examined. He said he felt a bit short of breath. He was on only2L of oxygen though, and saturating at 97% at time of my review. Review of systems was otherwise negative. He however subsequently went up to 15L by nonrebreather mask. Objective Data Objective Data Vital Signs: Vital Signs Temp Pulse Resp BP Pulse Ox O2 Del Method O2 Flow Rate 98.4 F 78 19 H 122/51 H 97 Non-Rebreather @ 15L/min and High Flow 2 11/30/22 09:36 11/30/22 09:36 11/30/22 09:36 11/30/22 09:36 11/30/22 09:36 11/30/22 09:36 11/30/22 04:46 FiO2 30 11/30/22 06:58 Oxygen Flow Rate (L/min) 2 Oxygen Delivery Method Non-Rebreather @ 15L/min Weight: 380 lb 11.813 oz Body Mass Index (BMI) 57.9 Intake & Output: Intake and Output for Last 24 Hours 11/28/22 11/29/22 11/30/22 23:59 23:59 23:59 Intake Total 2178.84 / 2193.84 1671.83 / 1671.83 Output Total 600 / 600 200 / 700 600 / 600 Balance 1578.84 / 1593.84 1471.83 / 971.83 -600 / -600 Lab / Micro Data Result Diagrams: 11/30/22 05:22 11/30/22 05:22 Labs: Laboratory Results - last 24 hr 11/29/22 11:38: POC Glucose 340 H 11/29/22 17:08: POC Glucose 326 H 11/29/22 23:15: POC Glucose 267 H 11/30/22 05:22: WBC 8.2, RBC 4.57 L, Hgb 12.5 L, Hct 38.0 L, MCV 83.2, MCH 27.4,MCHC 32.9, RDW Std Deviation 43.4, RDW Coeff of Jada 14.3, Plt Count 144 L, MPV 10.3, Immature Gran % (Auto) 0.500, Neut % (Auto) 68.4, Lymph % (Auto) 19.2, Navarro % (Auto) 9.9, Eos % (Auto) 1.6, Baso % (Auto) 0.4, Absolute Neuts (auto) 5.6, Absolute Lymphs (auto) 1.57, Nucleated RBC % 0 11/30/22 05:22: Sodium 135 L, Potassium 3.6, Chloride 103, Carbon Dioxide 27.0, Anion Gap 5, BUN 25 H, Creatinine 0.90, Estim Creat Clear Calc 76.00, Est GFR (MDRD) Af Amer 108, Est GFR (MDRD) Non-Af 89, BUN/Creatinine Ratio 27.7 H, Glucose 237 H, Calcium 8.2 L 11/30/22 06:51: POC Glucose 236 H Micro: Microbiology 11/28/22 11:52 Urine, Catheterized Urine Culture - Preliminary Streptococcus agalactiae (B) 11/28/22 10:12 Blood Culture (Wb) - Anticubital Right Bacteria Detection (PCR) - Final Streptococcus agalactiae (B) 11/28/22 10:12 Blood Culture (Wb) - Anticubital Right Blood Culture - Final Streptococcus agalactiae (B) 11/28/22 10:30 Blood Culture (Wb) - Right Hand Blood Culture - Preliminary Streptococcus agalactiae (B) Radiography Diagnostic Testing: Radiology Impression Echocardiogram 11/29/22 05:55 Interpretation Summary The estimated ejection fraction is 65 %. The left atrium is mildly enlarged. Unable to assess diastolic dysfunction. Ordering Physician: Hilda Zimmerman Referring Physician: Bernabe Reese Performed By: Stanley SALTER RDCS, Melissa and Student Rhythm Strip Rhythm Strip: A-fib Rate: 136 Ectopy: None Physical Exam Const alert and oriented x3 Constitutional Narrative: obese Orientation / Consciousness: confused, disoriented and lethargic HEENT normocephalic, head/scalp atraumatic, hearing grossly normal bilaterally and moist oral mucous membranes Eyes PERRL and EOMs intact bilaterally Neck no lymphadenopathy and supple Resp normal respiratory effort, no retractions, no use of accessory muscles and clearto auscultation bilaterally Resp Narrative: mildly diminished breath sounds bibasally, no wheezes or crackles. On 15L of oxygen by nonrebreather mask. Cardio regular rate, regular rhythm, S1 normal heart sound and S2 normal heart sound GI normal to inspection, nondistended, normoactive bowel sounds, soft to palpation,non-tender and non-distended Extremity normal to inspection, full ROM and no clubbing, cyanosis or edema General Extremity: clubbing and cyanosis Skin General Skin Exam: no breakdown Neuro CN's II-XII intact bilaterally, moves all extremities and no focal motor deficits Sensorium / Orientation: awake and alert Motor Exam: strength 5/5 throughout Psych thought process normal Appearance: appropriate Assessment & Plan Assessment/Plan (1) Acute confusion: (2) Acute UTI: (3) Leukocytosis: (4) Atrial fibrillation with RVR: PLAN: Plan #Afib with RVR * resolved. * now on metoprolol. Weaned off cardiem drip * wean off cardizem drip as tolerated * switch to PO metoprolol * on eliquis * #Acute metabolic encephalopathy due to UTI * encephalopathy has resolved. Now alert and oriented. * urinalysis had 3+ bacteria * urine cultures growing Strep agalactiae * blood cultures growing Strep agalactiae * o IV ceftriaxone. ID consulted. Await rec's * #Strep bacteremia * blood cultures positive for Strep agalactiae * ID consulted. Await rec's * #UTi: as above #TYpe 2 diabetes mellitus * On Lantus 50 units nightly. * Insulin Sliding scale. Accu-Cheks ACHS. * #Hypertension: on metoprolol, losartan and amlodipine, which were held on admission due to afib wih RVR and being on cardizem drip DVT prophylaxis: Therapeutic Lovenox CODE STATUS: full code * Charges/Coding Visit Charges Inpatient E&M: 33722 Subs Hosp L2 11/30/22 1638 <Electronically signed by Hilda Zimmerman MD> Hilda Zimmerman MD Cosigner Signature (if applicable): CC: ~ Signed [facility] Work Phone: [phone]) [phone]arthy [facility] November 30, 2022 10:52am Note Date/Time November 30, 2022 10:[address] [facility] Medical Records Department [address] [place] [address] Consultation - Infectious Dx 11/30/22 1047 MR#: [id number] Acct: [id number] Name: LANI ZARAGOZA Rep #:[id number] : 1955 67 From: Gregorio boston MD PCP: Dr. Bernabe Reese MD Status:AD M IN Location: [place] [id number] Assessment & Plan Assessment/Plan (1) Acute UTI: (2) Streptococcal bacteremia: PLAN: Strep bacteremia from urinary source with suspected pyelo given L flank pain and h/o kidney stones. Will increase dose of ceftriaxone, will check CT stone study. Might need urology eval. Reports anaphylaxis with PCN as a small child, so far tolerating ceftriaxone without issue. Will follow, thank you HPI Consult Data Date of Consult: 11/30/22 HPI Narrative Reason for Consultation: bacteremia HPI Narrative: LANI ZARAGOZA, is a 67 M with h/o afib, DM, had been feeling fine at home, came to ED 11/28 due to fall x2 at home, weakness, confusion. No fever or chills, no abd pain, no change in urine. Does have h/o kidney stones. Came to ED, admitted on ceftriaxone, found to have strep in bcx and ucx. Feeling better this AM. Full ROS performed and neg except as noted above. [facility] Medical History Alcohol use Ambulates with cane Anxiety Arthritis Atrial fibrillation Bilateral leg edema BiPAP (biphasic positive airway pressure) dependence [facility] Cardiology follow-up encounter Depression Diabetes Dietary restriction Essential (primary) hypertension Former smoker History of echocardiogram History of edema History of pain when walking History of ulceration HTN (hypertension) Hyperlipidemia Insulin dependent diabetes mellitus Leg cramps Low iron Lower extremity neuropathy Morbid obesity New onset atrial fibrillation (10/01/20) Obstructive sleep apnea Pickwickian syndrome Restless legs Shortness of breath on exertion Thyroid nodule Type 2 diabetes mellitus Wears glasses Home Medications losartan 100 mg tablet 100 mg PO QHS Check with primary doctor 04/04/14 [History Last Taken 12/03/20] metformin 1,000 mg tablet 1,000 mg PO BIDCM diabetes 04/04/14 [History Last Taken 12/03/20] amlodipine 5 mg tablet 5 mg PO QHS BP 10/01/20 [History Last Taken 12/03/20] royrswpy-duz-bwkri acid 300 mcg-lycopene 600 mcg-lutein 300 mcg tablet 1 tablet PO DAILY supplemetn 10/01/20 [History Last Taken 09/30/20] metoprolol succinate 100 mg tablet,extended release 24 hr (Toprol XL) 100 mg PO QHS Check with primary doctor 12/03/20 [History Last Taken 12/03/20] ferrous sulfate 325 mg (65 mg iron) tablet (FeroSul) 325 mg PO DAILY Check with primary doctor 03/12/22 [History Last Taken 04/26/22] insulin glargine U-300 conc 300 unit/mL (3 mL) subcutaneous pen (Toujeo Max U- 300 SoloStar) 50 unit subcut QHS diabetes 09/27/22 [History Last Taken Unknown] apixaban 5 mg tablet 5 mg PO BID blood thinner 11/29/22 [History Last Taken Unknown] gabapentin 800 mg tablet 800 mg TID neuropathy 11/29/22 [History Last Taken Unknown] Allergy/AdvReac Type Severity Reaction Status Date / Time ampicillin Allergy Unknown Verified 11/28/22 04:32 peanut Allergy NEEDS Verified 11/28/22 04:32 FOLLOW-UP Penicillins Allergy Unknown Verified 11/28/22 04:32 Family History Mother Heart disease Diabetes Father Heart disease Cancer Surgical History History of amputation of toe History of wisdom tooth extraction Social History Smoking Status: Former smoker how long ago did patient quit smokin alcohol intake: never substance use type: does not use caffeine: Yes Physical Exam Const alert, oriented x3 and no apparent distress General Appearance: cooperative HEENT normocephalic and head/scalp atraumatic Eyes PERRL and EOMs intact bilaterally Neck supple and No nodes Resp normal air movement and clear to auscultation bilaterally Cardio regular rate and regular rhythm GI soft to palpation and non-distended GI Narrative: L flank tenderness Extremity General Extremity: edema Skin no rashes or lesions noted Neuro CN's II-XII intact bilaterally Lab / Micro Data Attestation: I reviewed the patient's lab results. Result Diagrams: 11/30/22 05:22 11/30/22 05:22 Labs: Laboratory Results - last 24 hr 11/29/22 11:38: POC Glucose 340 H 11/29/22 17:08: POC Glucose 326 H 11/29/22 23:15: POC Glucose 267 H 11/30/22 05:22: WBC 8.2, RBC 4.57 L, Hgb 12.5 L, Hct 38.0 L, MCV 83.2, MCH 27.4,MCHC 32.9, RDW Std Deviation 43.4, RDW Coeff of Jada 14.3, Plt Count 144 L, MPV 10.3, Immature Gran % (Auto) 0.500, Neut % (Auto) 68.4, Lymph % (Auto) 19.2, Navarro % (Auto) 9.9, Eos % (Auto) 1.6, Baso % (Auto) 0.4, Absolute Neuts (auto) 5.6, Absolute Lymphs (auto) 1.57, Nucleated RBC % 0 11/30/22 05:22: Sodium 135 L, Potassium 3.6, Chloride 103, Carbon Dioxide 27.0, Anion Gap 5, BUN 25 H, Creatinine 0.90, Estim Creat Clear Calc 76.00, Est GFR (MDRD) Af Amer 108, Est GFR (MDRD) Non-Af 89, BUN/Creatinine Ratio 27.7 H, Glucose 237 H, Calcium 8.2 L 11/30/22 06:51: POC Glucose 236 H Micro: Microbiology 11/28/22 11:52 Urine, Catheterized Urine Culture - Preliminary Streptococcus agalactiae (B) 11/28/22 10:12 Blood Culture (Wb) - Anticubital Right Bacteria Detection (PCR) - Final Streptococcus agalactiae (B) 11/28/22 10:12 Blood Culture (Wb) - Anticubital Right Blood Culture - Final Streptococcus agalactiae (B) 11/28/22 10:30 Blood Culture (Wb) - Right Hand Blood Culture - Preliminary Streptococcus agalactiae (B) Rhythm Strip Rhythm Strip: A-fib Rate: 136 Ectopy: None Radiology Impression Echocardiogram 11/29/22 05:55 Interpretation Summary The estimated ejection fraction is 65 %. The left atrium is mildly enlarged. Unable to assess diastolic dysfunction. Ordering Physician: Hilda Zimmerman Referring Physician: Bernabe Reese Performed By: Roof RVT RDCS, Melissa and Student 11/30/22 1052 <Electronically signed by Gregorio Mccarthy MD> Cosigner Signature (if applicable): CC: Dr. Bernabe Reese MD; Dr. Gregorio Mccarthy MD~ Signed [facility] Work Phone: [phone]) 397-915606-12-2023 History and physical note Author Dr. Zimmerman [facility] November 29, 2022 4:54pm Note Date/Time November 28, 2022 12:1 3pm [facility] Medical Records Department [address] [place] [address] H&P Exam - Hospitalist 11/28/22 1205 MR#: [id number] Acct: [id number] Name: LANI ZARAGOZA Rep #:[id number] : 1955 67 From: Hilda Zimmerman MD PCP: Dr. Bernabe Reese MD Status:AD M IN Location: [facility] [id number] HPI - General General Date of Admission: 11/28/22 Date of Service: 11/28/22 Chief Complaint: mechanical fall HPI Narrative LANI ZARAGOZA, is a 67 M with a PMH as outlined who presents via the ED on 11/28/2022 with a complaint of mechanical fall. He said he was getting out of bedand fell and injured his knee. HE was seen in the ED then, and and xray done wasnegative. HE was sent home. He got home and fell again in his garage so he was brought back to the ED by the EMS. He couldnt give much of a history as he was confused. Patient was reviewed in the ED, and he was confused, and couldnt say much about why he was here. VItals in the ED were temp of 99.8F, FL of 120, BP of 138/88, RR of 20, and he was saturating at 92% on 2L of oxygen. CBC showed hemoglobin of 14.8 with WBC of 16.6 and platelets of 152. INR was 1.4 and chemistry was essentially normal apart from sodium of 132 and total bilirubin of 1.1. Urinlaysis was positive for3+ bactereia and >100 wbc/HPF. CXR showed cardiac enlargement and no focal infiltrate or edema. CT of the brain showed chronic involutional changes. He is being admitted to be managed for debility due to mechanical falls as well as UTI. HE also went into afib with RVR in the ED, and started on cardizem drip. [facility] Medical History Alcohol use Ambulates with cane Anxiety Arthritis Atrial fibrillation Bilateral leg edema BiPAP (biphasic positive airway pressure) dependence [facility] Cardiology follow-up encounter Depression Diabetes Dietary restriction Essential (primary) hypertension Former smoker History of echocardiogram History of edema History of pain when walking History of ulceration HTN (hypertension) Hyperlipidemia Insulin dependent diabetes mellitus Leg cramps Low iron Lower extremity neuropathy Morbid obesity New onset atrial fibrillation (10/01/20) Obstructive sleep apnea Pickwickian syndrome Restless legs Shortness of breath on exertion Thyroid nodule Type 2 diabetes mellitus Wears glasses Home Medications losartan 100 mg tablet 100 mg PO QHS 04/04/14 [History Last Taken 12/03/20] metformin 1,000 mg tablet 1,000 mg PO BIDCM 04/04/14 [History Last Taken 12/03/20] amlodipine 5 mg tablet 5 mg PO QHS 10/01/20 [History Last Taken 12/03/20] nnxzxqfl-juf-qhzki acid 300 mcg-lycopene 600 mcg-lutein 300 mcg tablet 1 tablet PO DAILY supplemetn 10/01/20 [History Last Taken 09/30/20] acetaminophen 500 mg tablet 500 mg PO Q6H PRN Pain 12/03/20 [History Last Taken 12/03/20] metoprolol succinate 100 mg tablet,extended release 24 hr (Toprol XL) 100 mg PO QHS 12/03/20 [History Last Taken 12/03/20] apixaban 5 mg tablet 5 mg PO BID #180 tabs 03/12/22 [Rx Last Taken Unknown] ferrous sulfate 325 mg (65 mg iron) tablet (FeroSul) 325 mg PO DAILY 03/12/22 [History Last Taken 04/26/22] gabapentin 600 mg tablet 600 mg PO TID 09/27/22 [History Last Taken Unknown] insulin glargine U-300 conc 300 unit/mL (3 mL) subcutaneous pen (Toujeo Max U- 300 SoloStar) 50 unit subcut QHS 09/27/22 [History Last Taken Unknown] oxycodone-acetaminophen 5 mg-325 mg tablet (Percocet) 1 tab PO Q6H PRN pain 3 days #12 tabs 11/28/22 [Rx Last Taken Unknown] Allergy/AdvReac Type Severity Reaction Status Date / Time ampicillin Allergy Unknown Verified 11/28/22 04:32 peanut Allergy NEEDS Verified 11/28/22 04:32 FOLLOW-UP Penicillins Allergy Unknown Verified 11/28/22 04:32 Family History Mother Heart disease Diabetes Father Heart disease Cancer Surgical History History of amputation of toe History of wisdom tooth extraction Social History Smoking Status: Former smoker how long ago did patient quit smokin alcohol intake: never substance use type: does not use caffeine: Yes ROS Review of Systems ROS Unobtainable: due to encephalopathy Vital Signs Vital Signs Vital Signs: 11/28/22 09:29 11/28/22 09:50 11/28/22 10:28 Temperature 99.8 F H Temperature Source Temporal Pulse Rate 120 H Respiratory Rate 20 H Blood Pressure 138/88 H Blood Pressure Mean 104 Pulse Ox 93 92 Oxygen Delivery Method Room Air Nasal Cannula Nasal Cannula Oxygen Flow Rate (L/min) 2 2 Weight Weight: 381 lb 13.45 oz Body Mass Index (BMI) 58.0 Physical Exam Const alert Orientation / Consciousness: confused, disoriented and lethargic HEENT normocephalic, head/scalp atraumatic, hearing grossly normal bilaterally and moist oral mucous membranes Eyes PERRL and EOMs intact bilaterally Neck no lymphadenopathy and supple Resp normal respiratory effort, no retractions, no use of accessory muscles and clearto auscultation bilaterally Cardio S1 normal heart sound and S2 normal heart sound Cardio Narrative: afib with RVR GI normal to inspection, nondistended, normoactive bowel sounds, soft to palpation,non-tender and non-distended Extremity normal to inspection, full ROM and no clubbing, cyanosis or edema Neuro CN's II-XII intact bilaterally and moves all extremities Neuro Narrative: confused. Sensorium / Orientation: awake and alert Motor Exam: strength 5/5 throughout Psych Psych Narrative: confused Results Lab / Micro Data Result Diagrams: 11/28/22 10:12 11/28/22 10:12 Labs: Laboratory Results - last 24 hr 11/28/22 10:12: WBC 16.6 H, RBC 5.37, Hgb 14.8, Hct 46.6, MCV 86.8, MCH 27.6, MCHC 31.8 L, RDW Std Deviation 43.2, RDW Coeff of Jada 13.7, Plt Count 152, MPV 10.3, Immature Gran % (Auto) 0.900, Neut % (Auto) 88.3 H, Lymph % (Auto) 5.7 L, Navarro % (Auto) 4.6, Eos % (Auto) 0.0, Baso % (Auto) 0.5, Absolute Neuts (auto) 14.6 H, Absolute Lymphs (auto) 0.95, Nucleated RBC % 0 11/28/22 10:12: PT 17.1 H, INR 1.4, APTT 28.2 11/28/22 10:12: Sodium 132 L, Potassium 3.9, Chloride 99, Carbon Dioxide 23.0, Anion Gap 10, BUN 12, Creatinine 0.93, Estim Creat Clear Calc 73.55, Est GFR (MDRD) Af Amer 104, Est GFR (MDRD) Non-Af 86, BUN/Creatinine Ratio 12.9, Eocamch930 H, Calcium 8.7, Total Bilirubin 1.10 H, AST 38 H, ALT 26, Alkaline Phosphatase 92, Total Creatine Kinase 544 H, Troponin I High Sens 36, Total Protein 7.6, Albumin 3.2, Globulin 4.4 H, Albumin/Globulin Ratio 0.7 L 11/28/22 10:12: Lactic Acid 2.0 11/28/22 10:22: Ethyl Alcohol < 3.0 11/28/22 10:32: POC Glucose 340 H 11/28/22 11:52: Urine Color Yellow, Urine Clarity Cloudy, Urine pH 5.0, Ur Specific Stacy 1.020, Urine Protein 100 H, Urine Glucose (UA) 1000 H, Urine Ketones 150 A*, Urine Occult Blood 250 H, Urine Nitrite Negative, Urine Bilirubin Negative, Urine Urobilinogen Normal, Ur Leukocyte Esterase 500 H, Urine RBC 10-25 SEEN, Urine WBC >100 SEEN, Ur Squamous Epith Cells 0-5 SEEN, Urine Bacteria 3+, Urine Mucus 0 SEEN Rhythm Strip Rhythm Strip: A-fib Rate: 136 Ectopy: None Radiology Impression Brain CT 11/28/22 09:53 IMPRESSION: Chronic involutional changes of the brain. Electronically Signed: Kwame Car MD at 11:36 EDT , Chest X-Ray 11/28/22 10:50 IMPRESSION: Cardiac enlargement. No focal infiltrate or edema. Electronically Signed: Kwame Car MD at 11:31 EDT , Assessment & Plan Assessment/Plan (1) Acute confusion: (2) Acute UTI: (3) Leukocytosis: (4) Atrial fibrillation with RVR: PLAN: Plan #Afib with RVR * new onset * patient was found to be in afib with RVR * HR was in the 150s a time of review. * on cardizem drip * start on therapeutic lovenox * * #Acute metabolic encephalopathy due to UTI * on urine had 3+ bacteria * will get urine cultures * get blood cultures * on IV ceftriaxone * #UTi: as above #TYpe 2 diabetes mellitus * On Lantus 50 units nightly. * Insulin Sliding scale. Accu-Cheks ACHS. * #Hypertension: Hold BP meds as he is on Cardizem drip. Hold metoprolol and losartan as well as amlodipine. DVT prophylaxis: Therapeutic Lovenox CODE STATUS: Presumed full code was unable to discuss with patient was confused. * Charges/Coding Visit Charges Inpatient E&M: 45040 Init Hosp L3 11/29/22 8261 <Electronically signed by Hilda Zimmerman MD> Cosigner Signature (if applicable): CC: Dr. Bernabe Reese MD; Dr. Hilda Zimmerman MD~ Signed [facility] Work Phone: [phone]) [phone] [facility] November 28, 2022 5:30pm Note Date/Time November 28, 2022 10:0 2am [facility] Medical Records Department [address] [place] [address] Emergency Department Summary 11/28/22 MR#: [id number] Acct: [id number] Name: LANI ZARAGOZA Rep #:[id number] : 1955 67 From: Gui Bailey MD PCP: Dr. Bernabe Reese MD Status:AD M IN Location: [address] 1 HPI HPI - Fall History of Present Illness Chief Complaint: Fall Informant: patient and EMS Occured/Mechanism Occurred: Today Mechanism/Context: Yes same level fall Usually ambulates: Without assistance Pain/Injury Pain Location: lower extremity Quality of Pain: Dull and Aching Current Severity: Mild Maximum Severity: Mild Narrative Narrative: 2-year-old male history of diabetes, alcohol use, A-fib on chronic blood thinnerEliquis. Was reportedly seen her last night due to a fall at home when he fell getting out of bed said he injured his knee. X-ray was obtained and showed arthritis he was discharged home. Reportedly when he got home he fell in his garage. In the was brought back in by squad. Patient seems confused. He is a limited informant. He reportedly lives alone at home. Prior similar symptoms: Yes Recent Illness/Hospitalization: No PFSH PFSH Medical History Alcohol use Ambulates with cane Anxiety Arthritis Atrial fibrillation Bilateral leg edema BiPAP (biphasic positive airway pressure) dependence [facility] Cardiology follow-up encounter Depression Diabetes Dietary restriction Essential (primary) hypertension Former smoker History of echocardiogram History of edema History of pain when walking History of ulceration HTN (hypertension) Hyperlipidemia Insulin dependent diabetes mellitus Leg cramps Low iron Lower extremity neuropathy Morbid obesity New onset atrial fibrillation (10/01/20) Obstructive sleep apnea Pickwickian syndrome Restless legs Shortness of breath on exertion Thyroid nodule Type 2 diabetes mellitus Wears glasses Home Medications losartan 100 mg tablet 100 mg PO QHS 04/04/14 [History Last Taken 12/03/20] metformin 1,000 mg tablet 1,000 mg PO BIDCM 04/04/14 [History Last Taken 12/03/20] amlodipine 5 mg tablet 5 mg PO QHS 10/01/20 [History Last Taken 12/03/20] wfwwtmkn-pbg-gxvlt acid 300 mcg-lycopene 600 mcg-lutein 300 mcg tablet 1 tablet PO DAILY supplemetn 10/01/20 [History Last Taken 09/30/20] acetaminophen 500 mg tablet 500 mg PO Q6H PRN Pain 12/03/20 [History Last Taken 12/03/20] metoprolol succinate 100 mg tablet,extended release 24 hr (Toprol XL) 100 mg PO QHS 12/03/20 [History Last Taken 12/03/20] apixaban 5 mg tablet 5 mg PO BID #180 tabs 03/12/22 [Rx Last Taken Unknown] ferrous sulfate 325 mg (65 mg iron) tablet (FeroSul) 325 mg PO DAILY 03/12/22 [History Last Taken 04/26/22] gabapentin 600 mg tablet 600 mg PO TID 09/27/22 [History Last Taken Unknown] insulin glargine U-300 conc 300 unit/mL (3 mL) subcutaneous pen (Toujeo Max U- 300 SoloStar) 50 unit subcut QHS 09/27/22 [History Last Taken Unknown] oxycodone-acetaminophen 5 mg-325 mg tablet (Percocet) 1 tab PO Q6H PRN pain 3 days #12 tabs 11/28/22 [Rx Last Taken Unknown] Allergy/AdvReac Type Severity Reaction Status Date / Time ampicillin Allergy Unknown Verified 11/28/22 04:32 peanut Allergy NEEDS Verified 11/28/22 04:32 FOLLOW-UP Penicillins Allergy Unknown Verified 11/28/22 04:32 Family History Mother Heart disease Diabetes Father Heart disease Cancer Surgical History History of amputation of toe History of wisdom tooth extraction Social History Smoking Status: Former smoker how long ago did patient quit smokin alcohol intake: never substance use type: does not use caffeine: Yes ROS ROS ED ROS Narrative Limited informant due to his mental status. Review of Systems ROS Unobtainable: due to mental status EXAM Physical Exam Narrative Exam Narrative: 67-year-old male vital signs are stable he is a temperature nine 9.8. His pulseox is 93% on room air no hypoxia. In the room alone. He does not have any family present. He is confused and a limited informant. HEENT exam pupils round reactive light. No signs of trauma to his face or scalp. Nontender. Neck nontender. Trachea midline. No lymphadenopathy. Lungs clear to auscultation bilaterally. Heart tachycardic rate about 120 no murmur. Chest wall nontender. Abdomen morbidly obese soft nontender normal bowel sounds no peritoneal signs. Moving all 4 extremities. Chronic bilateral lower extremity edema. Neurologically he is awake. His eyes are open. He is a very limited informant. He appears confused. He is moving all 4 extremities. He does not know where he is at. He is not a very good informant. Const Vital Signs: 11/28/22 09:29 11/28/22 09:50 11/28/22 10:28 Temperature 99.8 F H Temperature Source Temporal Pulse Rate 120 H Respiratory Rate 20 H Blood Pressure 138/88 H Blood Pressure Mean 104 Pulse Ox 93 92 Oxygen Delivery Method Room Air Nasal Cannula Nasal Cannula Oxygen Flow Rate (L/min) 2 2 Positive well nourished, well developed and obese; Negative for cachectic, contractures or unkempt General Appearance ED: well developed; Negative for unkempt, cachectic or contractures Nutritional Appearance: obese; Negative for cachectic HEENT Reports normocephalic atraumatic; Negative for trauma or contusion Eyes PERRL and EOMs intact bilaterally General Eye ED: Negative for pale conjunctiva or scleral icterus Neck full ROM, no lymphadenopathy and supple General: Negative for tenderness Chest Wall inspection of chest normal and palpation of chest normal Chest: Negative for other Resp normal respiratory effort, no retractions and clear to auscultation bilaterally Auscultation: Negative for rales or wheezes Cardio S1 normal heart sound, S2 normal heart sound and no murmurs; Negative for regular rate or regular rhythm Cardio Narrative: A-fib RVR rate of 120-130. Rate: tachycardic GI non-tender, non-distended and no masses Inspection: Negative for abdominal distention Auscultation: normoactive bowel sounds Palpation: soft; Negative for guarding Back/Spine no CVA tenderness General Back: Negative for CVA tenderness Cervical Spine: Negative for cervical spine tenderness Lumbar Spine / Lower Back: Negative for lumbar spinal tenderness Neuro No oriented x3, CN's II-XII intact bilaterally, moves all extremities and no focal motor deficits Sensorium / Orientation: oriented to person, orientation impaired and confused; Negative for oriented to place or oriented to time Motor Exam: Negative for strength 5/5 throughout Psych thought process normal Appearance: Negative for unkempt Attitude: No agitated Mood & Affect: Negative for anxious or tearful Skin General Skin Exam: Negative for other Lesions: no lesions Rashes: no rashes Trauma: Negative for abrasion MDM MDM MDM Narrative Medical decision making narrative: 67-year-old gentleman was seen earlier this morning due to a fall at home was discharged back home fell again and was brought back in. He seems confused. Liudmila temperature 99.8. This may be from underlying infection versus other etiologies. I will get a septic work-up. Also get a CAT scan of his head he shelley chronic blood thinners. Chest x-ray and labs. Most likely will need to be admitted. Repeat exam unchanged. He still has a decreased mental status. He is awake. His eyes are open. He is in A-fib RVR be started on a Cardizem drip. This should titrate his rate and help with his elevated blood pressure. His urine ispending but grossly it looks like it is infected. He will be written for IV Rocephin. I will speak to the hospitalist about admission. Discussed the patient's care with the hospitalist. At this time will be admitted to the PCU. History & Record Review Discussion w/independent historian: EMS personnel and Patient Additional record(s) reviewed:: Prior inpatient record, Prior outpatient record,Prior ED visit and Prior labs Lab Data Attestation: I reviewed the patient's lab results. Lab results narrative: CBC shows elevated white count 16.6. H&H 14 and 46. Platelets 152. PT/INR PTTis 17, 128. Unremarkable. Electrolytes show sodium 128. Gap of 10 normal BUN and creatinine are 12 and 0.9. Glucose is elevated at 331. He is a known diabetic. Liver enzymes are unremarkable. CPK is elevated at 544. Lactic acidis 2. Alcohol is negative. Urine is infected with greater than 100 white cells, 3+ bacteria no nitrates. Culture will be sent. Labs: Laboratory Results - last 24 hr 11/28/22 11/28/22 11/28/22 10:12 10:12 10:12 WBC 16.6 H RBC 5.37 Hgb 14.8 Hct 46.6 MCV 86.8 MCH 27.6 MCHC 31.8 L RDW Std Deviation 43.2 RDW Coeff of Jada 13.7 Plt Count 152 MPV 10.3 Immature Gran % (Auto) 0.900 Neut % (Auto) 88.3 H Lymph % (Auto) 5.7 L Navarro % (Auto) 4.6 Eos % (Auto) 0.0 Baso % (Auto) 0.5 Absolute Neuts (auto) 14.6 H Absolute Lymphs (auto) 0.95 Nucleated RBC % 0 PT 17.1 H INR 1.4 APTT 28.2 Sodium 132 L Potassium 3.9 Chloride 99 Carbon Dioxide 23.0 Anion Gap 10 BUN 12 Creatinine 0.93 Estim Creat Clear Calc 73.55 Est GFR (MDRD) Af Amer 104 Est GFR (MDRD) Non-Af 86 BUN/Creatinine Ratio 12.9 Glucose 331 H Lactic Acid Calcium 8.7 Total Bilirubin 1.10 H AST 38 H ALT 26 Alkaline Phosphatase 92 Total Creatine Kinase 544 H Troponin I High Sens 36 Total Protein 7.6 Albumin 3.2 Globulin 4.4 H Albumin/Globulin Ratio 0.7 L Urine Color Urine Clarity Urine pH Ur Specific Stacy Urine Protein Urine Glucose (UA) Urine Ketones Urine Occult Blood Urine Nitrite Urine Bilirubin Urine Urobilinogen Ur Leukocyte Esterase Urine RBC Urine WBC Ur Squamous Epith Cells Urine Bacteria Urine Mucus Ethyl Alcohol POC Glucose 11/28/22 11/28/22 11/28/22 10:12 10:22 10:32 WBC RBC Hgb Hct MCV MCH MCHC RDW Std Deviation RDW Coeff of Jada Plt Count MPV Immature Gran % (Auto) Neut % (Auto) Lymph % (Auto) Navarro % (Auto) Eos % (Auto) Baso % (Auto) Absolute Neuts (auto) Absolute Lymphs (auto) Nucleated RBC % PT INR APTT Sodium Potassium Chloride Carbon Dioxide Anion Gap BUN Creatinine Estim Creat Clear Calc Est GFR (MDRD) Af Amer Est GFR (MDRD) Non-Af BUN/Creatinine Ratio Glucose Lactic Acid 2.0 Calcium Total Bilirubin AST ALT Alkaline Phosphatase Total Creatine Kinase Troponin I High Sens Total Protein Albumin Globulin Albumin/Globulin Ratio Urine Color Urine Clarity Urine pH Ur Specific Stacy Urine Protein Urine Glucose (UA) Urine Ketones Urine Occult Blood Urine Nitrite Urine Bilirubin Urine Urobilinogen Ur Leukocyte Esterase Urine RBC Urine WBC Ur Squamous Epith Cells Urine Bacteria Urine Mucus Ethyl Alcohol < 3.0 POC Glucose 340 H 11/28/22 11:52 WBC RBC Hgb Hct MCV MCH MCHC RDW Std Deviation RDW Coeff of Jada Plt Count MPV Immature Gran % (Auto) Neut % (Auto) Lymph % (Auto) Navarro % (Auto) Eos % (Auto) Baso % (Auto) Absolute Neuts (auto) Absolute Lymphs (auto) Nucleated RBC % PT INR APTT Sodium Potassium Chloride Carbon Dioxide Anion Gap BUN Creatinine Estim Creat Clear Calc Est GFR (MDRD) Af Amer Est GFR (MDRD) Non-Af BUN/Creatinine Ratio Glucose Lactic Acid Calcium Total Bilirubin AST ALT Alkaline Phosphatase Total Creatine Kinase Troponin I High Sens Total Protein Albumin Globulin Albumin/Globulin Ratio Urine Color Yellow Urine Clarity Cloudy Urine pH 5.0 Ur Specific Stacy 1.020 Urine Protein 100 H Urine Glucose (UA) 1000 H Urine Ketones 150 A* Urine Occult Blood 250 H Urine Nitrite Negative Urine Bilirubin Negative Urine Urobilinogen Normal Ur Leukocyte Esterase 500 H Urine RBC 10-25 SEEN Urine WBC >100 SEEN Ur Squamous Epith Cells 0-5 SEEN Urine Bacteria 3+ Urine Mucus 0 SEEN Ethyl Alcohol POC Glucose Radiography Chest X-Ray - ED: Read by ED Physician, Read by Radiologist, Normal, Lungs, Mediastinum, Bony Structures, No Acute Disease, Chronic Changes and Cardiomegaly Diagnostic Testing: Clinical Impression(s) from Imaging Studies Brain CT 11/28/22 09:53 IMPRESSION: Chronic involutional changes of the brain. Electronically Signed: Kwame Car MD at 11:36 EDT , Chest X-Ray 11/28/22 10:50 IMPRESSION: Cardiac enlargement. No focal infiltrate or edema. Electronically Signed: Kwame Car MD at 11:31 EDT , Chest x-ray, portable, single view interpreted both by myself and the radiologist. She has chronic changes. Cardiomegaly. No acute process. CT of the brain shows no acute intracranial event. Read by the radiologist and reviewed by me. Chronic changes. Rhythm Strip Rhythm Strip: A-fib Rate: 136 Ectopy: None EKG Initial EKG: Attestation: I personally reviewed and interpreted this EKG as follows: Interpretation: Atrial Fibrillation Comments: A-fib with rapid ventricular rate of 136. Frequent PVCs. No acute signs of VA. Critical Care Time Critical Care Time: Yes Critical care time (excluding procedures): 30-74 minutes, Including time spent:,Discussing w/Patient &/or Family/Spectrographer, Discussing w/Consultants, ArrangingAdmission or Transfer and Performing Direct Patient Care at Bedside Discharge Plan Dx/Rx/DC Orders Clinical Impression: Fall, Acute confusion, Chronic anticoagulation, Acute UTI, Leukocytosis, Atrialfibrillation with RVR, Hyperglycemia due to diabetes mellitus Disposition Disposition: Acute Care [facility] What to do if you have Problems For any increased pain, shortness of breath, bleeding, nausea or vomiting, chestpain, or any unexpected problems, contact your Primary Care Provider. Call [facility] ([phone]) or report to the closest Emergency Room. Call 911 if necessary. 11/28/22 1730 <Electronically signed by Gui Bailey MD> Cosigner Signature (if applicable): CC: Dr. Bernabe Reese MD ~ Signed [facility] Work Phone: Evaluation noteNo assessment information available [facility] Work Phone: Evaluation note* Diagnosis Onset Date Resolution Status Iron deficiency anemia acute Atrial fibrillation acute Essential (primary) hypertension chronic Hyperlipidemia chronic [facility] Work Phone: Evaluation note* Diagnosis Onset Date Resolution Status Atrial fibrillation acute Chest pain acute Essential (primary) hypertension chronic Hyperlipidemia chronic [facility] Work Phone: Evaluation note* Diagnosis Onset Date Resolution Status Atrial fibrillation acute Chest pain acute Essential (primary) hypertension chronic Hyperlipidemia chronic Acute confusion acute Acute UTI acute Atrial fibrillation with RVR acute Chronic anticoagulation acut e Fall acute Hyperglycemia due to diabetes mellitus acute Leukocytosis acute Streptococcal bacteremia acu te [facility] Work Phone: Evaluation note* Diagnosis Onset Date Resolution Status Atrial fibrillation acute Chest pain acute Essential (primary) hypertension chronic Hyperlipidemia chronic Cellulitis of right leg acut e Dysuria acute Hypoxemia acute Type 2 diabetes mellitus with diabetic polyneuropathy acute Weakness acute Bilateral leg edema chronic Morbid obesity chronic Venous insufficiency (chronic) (peripheral) chronic [facility] Work Phone: Evaluation note* Diagnosis Onset Date Resolution Status Cellulitis of right leg acut e Type 2 diabetes mellitus with diabetic polyneuropathy acute Weakness acute Bilateral leg edema chronic Morbid obesity chronic Venous insufficiency (chronic) (peripheral) chronic Dysuria resolved Hypoxemia resolved Bilateral leg edema chronic Dyspnea on exertion chronic Morbid obesity chronic Pickwickian syndrome chronic [facility] Work Phone: Evaluation note* Diagnosis Ischemic cerebrovascular accident (CVA)- Primary Intracranial hemorrhage Unspecified intracranial hemorrhage Nontraumatic cortical hemorrhage of left cerebral hemisphere Hemorrhagic stroke Intracerebral hemorrhage BMI 50.0-59.9, adult Body Mass Index 50.0-59.9, adult Acute osteomyelitis of calcaneum, right Bacteremia due to methicillin resistant Staphylococcus epidermidis Polymicrobial bacterial infection Neutrophilic leukocytosis Other specified disease of white blood cells Type 2 diabetes mellitus with hyperglycemia, with long-term current use of insulin High risk medication use Encounter for long-term (current) use of other medications Ischemic cerebrovascular accident (CVA) Atrial fibrillation, chronic Atrial fibrillation ICH (intracerebral hemorrhage) Intracerebral hemorrhage Type 2 diabetes mellitus with hyperglycemia Type II or unspecified type diabetes mellitus without mention of complication, not stated as uncontrolled [facility] Author Chula Antunez [facility] Note Date/Time 2024 4:0 3pm [facility] Medical Records Department [address] [place] [address] H&P Exam - Hospitalist 10/09/24 1552 MR#: [id number] Acct: [id number] Name: LANI ZARAGOZA Rep #:[id number] : 1955 69 From: Chula Antunez MD PCP: Dr. Bernabe Reese MD Status:AD M IN Location: [address] HPI - General General Date of Admission: 10/09/24 Date of Service: 10/09/24 Chief Complaint: R diabetic foot ulcer HPI Narrative LANI ZARAGOZA, is a 69-year-old male with a history of diabetes, hypertension, sleep apnea, paroxysmal atrial fibrillation A-fib who presented [facility] ED 2024 from wound clinic for IV antibiotics and likely surgery. He has had a worsened right heel wound over 4 to 5 weeks and is followed by wound care, presently on Augmentin but when he was seen today he wassent to the ED. In the ED blood pressure initially 199/80 but otherwise vitallystable, repeat blood pressure 141/67. Chest x-ray with right basilar atelectasis however patient with no new changes in his breathing or cough so suspected to be atelectasis not pneumonia and foot x-ray unremarkable. Labs revealed a white blood cell count of 11.3 and an ESR of 30. Glucose 384 on BMP and lactic acid 3.6 with a CRP of 141. Hospitalist contacted for admission. Patient evaluated bedside and does report that ulcer over the past month, reports with his neuropathy that he cannot really feel it so does not have pain but does note it "itches", has chronic fatigue which has not changed recently and also has chronic shortness of breath which has not changed with no cough or fever. 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 [facility] Medical History Chronic cellulitis Streptococcal bacteremia Hyperglycemia due to diabetes mellitus Chronic anticoagulation Fall Wears glasses Depression Anxiety Alcohol use History of ulceration Ambulates with cane Insulin dependent diabetes mellitus Arthritis Low iron Dietary restriction Former smoker Shortness of breath on exertion Leg cramps History of pain when walking History of edema Cardiology follow-up encounter History of echocardiogram Blackout Restless legs HTN (hypertension) Diabetes BiPAP (biphasic positive airway pressure) dependence Atrial fibrillation Hyperlipidemia Thyroid nodule Lower extremity neuropathy Essential (primary) hypertension Type 2 diabetes mellitus Morbid obesity Obstructive sleep apnea New onset atrial fibrillation (10/01/20) Pickwickian syndrome Bilateral leg edema Home Medications ?Medication ?Instructions ?Recorded ?Last Taken ?Type losartan 100 mg tablet 100 mg PO QHS Check with supriya souza 04/04/14 10/08/24 History doctor metformin 1,000 mg tablet 1,000 mg PO BIDCM diabetes 1 10/09/24 History amlodipine 5 mg tablet 5 mg PO QHS BP 10/01/20/07/14 History ofqhvskb-fx-xbyhg 300 mcg-K 60 1 tablet PO DAILY suppl emetn 10/01/20 05/21/23 History mcg-lycop 600 mcg-lutein 300 mcg tablet insulin glargine U-300 conc 300 25 unit subcut QHS sudheer betjoe 09/27/22 05/20/23 History unit/mL (3 mL) subcutaneous pen (Toujeo Max U-300 SoloStar) apixaban 5 mg tablet 5 mg PO BID blood thinner 10/09/24 History gabapentin 800 mg tablet 800 mg PO .COMPLEX PRN neuro paula 11/29/22 10/09/24 History pen needle, diabetic 32 gauge x #1,200 ea 05/23/23 Unk nown Rx " acetaminophen 500 mg tablet 1,000 mg PO TID 07/11/23 U nknown History (Tylenol Extra Strength) blood sugar diagnostic (OneTouch #10 ea 07/11/23 Unkno wn History Ultra Test strips) amoxicillin 875 mg-potassium 1 tab PO BID 10/09/24 History clavulanate 125 mg tablet metoprolol tartrate 50 mg tablet 50 mg PO BID 10/09/24 10/09/24 History Allergy/AdvReac Type Severity Reaction Status Date / Time ampicillin Allergy Unknown Verified 10/09/24 12:49 peanut Allergy NEEDS Verified 10/09/24 12:49 FOLLOW-UP Penicillins Allergy Unknown Verified 10/09/24 12:49 Family History Mother Heart disease Diabetes Father Heart disease Cancer Surgical History History of amputation of toe History of wisdom tooth extraction Social History housing: apartment Smoking Status: Never smoker how long ago did patient quit smokin alcohol intake: never substance use type: does not use caffeine: Yes ROS ROS Narrative General: Denies fever/chills HENT: Denies headache, denies stuffy nose, denies sore throat EYES: Denies changes in vision Resp: Denies cough, chronic shortness of breath unchanged Cardiac: Denies chest pain GI: Denies abdominal pain, denies changes in bowel, denies nausea/vomiting : Denies changes in urination Extremity: Denies swelling MSK: Denies weakness Neuro: Chronic neuropathy in feet Heme: Denies any bleeding or bruising Skin: Right foot wound Psychiatric: No complaints voiced Vital Signs Vital Signs Vital Signs: 10/09/24 12:46 10/09/24 13:26 10/09/24 13:46 Temperature 97.8 F 97.9 F Temperature Source Oral Oral Pulse Rate 79 95 Respiratory Rate 14 20 H Blood Pressure 199/80 H 141/67 H Blood Pressure Mean 119 91 Pulse Ox 98 98 98 Oxygen Delivery Method Room Air Room Air Room Air 10/09/24 14:00 10/09/24 15:00 10/09/24 15:17 Temperature 97.9 F 98.6 F 98.6 F Temperature Source Oral Oral Pulse Rate 95 95 95 Respiratory Rate 18 18 18 Blood Pressure 140/98 H 149/61 H 149/61 H Blood Pressure Mean 112 90 90 Pulse Ox 98 98 98 Oxygen Delivery Method Room Air Room Air Physical Exam Narrative General: Alert, oriented, no apparent distress HEENT: Atraumatic, normocephalic Eyes: Anicteric, normal conjunctiva, extraocular movements grossly intact Neck: Supple Respiratory: Diminished at the bases but largely due to body habitus, normal respiratory effort Cardiovascular: Irregularly irregular GI: Soft, nontender, nondistended Extremities: Some nonpitting edema Musculoskeletal: Moving all extremities Neuro: Chronic neuropathy in his feet Skin: Right foot wrapped, does have some warmth in the leg and some slight erythema Psych: Cooperative Results Lab / Micro Data 10/09/24 13:40 10/09/24 13:40 Labs: Laboratory Results - last 24 hr 10/09/24 13:40: WBC 11.3 H, RBC 4.78, Hgb 12.8 L, Hct 38.6 L, MCV 80.8, MCH 26.8L, MCHC 33.2, RDW Std Deviation 37.2, RDW Coeff of Jada 12.8, Plt Count 243, MPV 9.8, Immature Gran % (Auto) 0.400, Neut % (Auto) 82.8 H, Lymph % (Auto) 9.2 L, Navarro % (Auto) 6.5, Eos % (Auto) 0.7, Baso % (Auto) 0.4, Absolute Neuts (auto) 9.4 H, Absolute Lymphs (auto) 1.04, Nucleated RBC % 0, ESR 30 H, PT Cancelled, INR Cancelled, APTT Cancelled, Sodium 134, Potassium 3.9, Chloride 93 L, Carbon Dioxide 27.8, Anion Gap 14, BUN 8, Creatinine 0.81, Est GFR (MDRD) Non-Af 95, BUN/Creatinine Ratio 9.6 L, Glucose 384 H, Calcium 9.0, Total Bilirubin 0.88, AST18, ALT 11, Alkaline Phosphatase 104, C-React Prot Ext Range 141.00 H, Total Protein 7.3, Albumin 3.5, Globulin 3.8, Albumin/Globulin Ratio 0.9 10/09/24 13:42: Lactic Acid 3.6 H* 10/09/24 13:47: Blood Type A NEGATIVE, Antibody Screen NEGATIVE 10/09/24 14:54: PT 16.6 H, INR 1.3, APTT 32.3 Imaging Radiology Impression Chest X-Ray 10/09/24 13:45 IMPRESSION: Right basilar atelectasis or pneumonia. Reading Location: [facility] Foot X-Ray 10/09/24 13:45 IMPRESSION: No obvious radiographic evidence of osteomyelitis. However, if clinical suspicion remains high, further evaluation with 3 phase bone scan or MRI is recommended. Reading Location: [facility] Assessment & Plan Assessment/Plan (1) Diabetic ulcer of right heel: PLAN: Plan # Right heel diabetic foot wound -With concerns for abscess and/or osteomyelitis -ESR 30, CRP 41, white blood cell count 11.3 with left shift - Continue broad-spectrum antibiotics -Podiatry consult -Culture sent in ED -May need ID consultation once further workup and culture and sensitivity data available - Wound care consult #Type 2 diabetes mellitus -Glucose checks and sliding scale insulin -Patient is out of his long-acting insulin based on med rec and unsure when he last had any's will decrease long-acting to 10 units and can uptitrate as glucoses tolerate #Paroxysmal Atrial Fibrillation -EKG: Patient rate controlled A-fib -Rate control: Continue metoprolol -Anticoagulation: Hold Eliquis due to suspected need for operative management #Hypertension - Continue home medications -Also add as needed hydralazine given significant elevations on admission #TODD -Continue home BiPAP #DVT ppx: SCDs Chula Antunez MD 10/09/24 1603 <Electronically signed by Chula Antunez MD> Cosigner Signature (if applicable): CC: Dr. Bernabe Reese MD; Dr. Chula Antunez MD~ Signed [facility] Work Phone: Rejzqu for referral (narrative)No reason for referral information availableWRegency Hospital Company Work Phone: reason for visit Narrative* Auth/Cert Specialty Diagnoses / Procedures Referred By Contac t Referred To Contact Diagnoses Intracranial hemorrhage Ischemic cerebrovascular accident (CVA) Osteomyelitis (R Foot/ Ext Fixator) Cerebrovascular Accident (Type A Hemorrhagic Stroke) Dillan Guzman MD [address] [facility] [address] [place] [address] Phone: tel: fax: [facility] [address] [place] [address] Referral ID Status Reason Start Date Expiration Date Visits Re quested Visits Authorized [id number] 1 1 [facility] Summary Purpose Family History Relationship Condition Age at Onset Recorded Date/T dianna mother Cardiac disease Unknown Diabetes mellitus Unknown father Cardiac disease Unknown Malignant neoplasm Unknown Advance Directives Advance Directive Response Recorded Date/ Time Living Will No December 03, 2020 5:10pm Power of Oyster Culturist No December 03 5:10pm Advance Directive Response Recorded Date/ Time Living Will Yes April 28 10:03am Power of Oyster Culturist Yes April 28, 2022 10:03am Advance Directive Response Recorded Date/ Time Living Will Yes April 28 11:03am Power of Oyster Culturist Yes April 28, 2022 11:03am Advance Directive Response Recorded Date/ Time Living Will No November 28, 2022 9:50am Power of Oyster Culturist No November 28 9:50am Advance Directive Response Recorded Date/ Time Name of Medical Power of Oyster Culturist Norma Rosas ( sister) May 21, 2023 5:53pm Living Will No May 21 5:53pm Power of Oyster Culturist Yes May 21, 2023 5:53pm Advance Directive Response Recorded Date/ Time Name of Medical Power of Oyster Culturist Norma Rosas ( sister) May 21, 2023 6:53pm Living Will No May 21 6:53pm Power of Oyster Culturist Yes May 21, 2023 6:53pm Advance Directive Response Recorded Date/ Time Do you have a Healthcare Power of Oyster Culturist? No 2024 1:26pm Documents on File Type Date Recorded Patient Network Liaison Expl anation HealthCare Power of Oyster Culturist 10/16/2024 9:41 PM Rogelio (1st Alt HCPOA) Flavia (HCPOA) Alison Advance Directives/Living Will 10/16/2024 9:30 PM Date Activated Date Inactivated Comments 10/16/2024 10:43 PM Healthcare Agents on File Name Relationship Healthcare Agent Relationship Communication Norma (HCPOA) Alison Sibling Health Care Agent Rogelio (1st Alt HCPOA) Mila Child First Alternate Health Care Agent Advance Directive Response Recorded Date/ Time Do you have a Healthcare Pow er of Oyster Culturist? Yes 2024 4:40pm Name of Medical Power of Oyster Culturist Norma Beckham-- sister 2024 4:40pm Chief Complaint and Reason for Visit Chief Complaint THYROID NODULE Chief Complaint Anemia 9 M FU Reason for Visit Iron deficiency anem ia Atrial fibrillation Essential (primary) hypertension Hyperlipidemia Chief Complaint 6 M FU Reason for Visit Atrial fibrillation Chest pain Essential (primary) hypertension Hyperlipidemia Chief Complaint 6 M FU NODULE Fall AFIB WITH RVR, UTI, MECHANICAL FALLS AFIB WITH RVR, UTI, MECHANICAL FALLS AFIB WITH RVR, UTI, MECHANICAL FALLS AFIB WITH RVR, UTI, MECHANICAL FALLS AFIB WITH RVR, UTI, MECHANICAL FALLS AFIB WITH RVR, UTI, MECHANICAL FALLS Reason for Visit Atrial fibrillation Chest pain Essential (primary) hypertension Hyperlipidemia Acute confusion Acute UTI Atrial fibrillation with RVR Chronic anticoagulation Fall Hyperglycemia due to diabetes mellitus Leukocytosis Streptococcal bacteremia Chief Complaint 1 Y FU Reason for Visit Atrial fibrillation Chest pain Essential (primary) hypertension Hyperlipidemia Chief Complaint 1 Y FU HYPOXIA, WEAKNESS HYPOXIA, WEAKNESS HYPOXIA, WEAKNESS Reason for Visit Atrial fibrillation Chest pain Essential (primary) hypertension Hyperlipidemia Cellulitis of right leg Dysuria Hypoxemia Type 2 diabetes mellitus with diabetic polyneuropathy Weakness Bilateral leg edema Morbid obesity Venous insufficiency (chronic) (peripheral) Chief Complaint HYPOXIA, WEAKNESS HYPOXIA, WEAKNESS HYPOXIA, WEAKNESS Hospital FU E ORDERS Reason for Visit Cellulitis of right leg Type 2 diabetes mellitus with diabetic polyneuropathy Weakness Bilateral leg edema Morbid obesity Venous insufficiency (chronic) (peripheral) Dysuria Hypoxemia Bilateral leg edema Dyspnea on exertion Morbid obesity Pickwickian syndrome Chief Complaint Admit Date DIABETES/ PLANTAR HEEL ULCER September 28, 2024 2:24pm wound October 02, 2024 10: 15am Reason for Visit Admit Date Iron deficiency anemia October 02, 2024 10:15am Other specified peripheral vascular dise ases October 02, 2024 10:15am Type 2 diabetes mellitus with diabetic p olyneuropathy October 02, 2024 10:15am 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 laye r exposed October 02, 2024 10:15am Non-pressure chronic ulcer o f other part of right foot with fat layer exposed October 02, 2024 10:15am Chief Complaint Admit Date DIABETES/ PLANTAR HEEL ULCER September 28, 2024 2:24pm wound 2024 10: 30am RIGHT DIABETIC FOOT INFECTION September 3:52pm Reason for Visit Admit Date Iron deficiency anemia 2024 10:30am Other specified peripheral vascular dise ases 2024 10:30am Type 2 diabetes mellitus with diabetic p olyneuropathy 2024 10:30am 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 laye r exposed 2024 10:30am Non-pressure chronic ulcer o f other part of right foot with fat layer exposed 2024 10:30am Diabetic ulcer of right heel 2024 3:52pm Chief Complaint Admit Date DIABETES/ PLANTAR HEEL ULCER September 28, 2024 2:24pm wound 2024 10: 30am RIGHT DIABETIC FOOT INFECTION September 3:52pm RIGHT DIABETIC FOOT INFECTION September 6:35pm PREOP October 11, 2024 4:5 6am RIGHT DIABETIC FOOT INFECTION September 5:13pm RIGHT DIABETIC FOOT INFECTION September 7:47pm RIGHT DIABETIC FOOT INFECTION September 11:46am RIGHT DIABETIC FOOT INFECTION September 3:09pm RIGHT DIABETIC FOOT INFECTION September 11:11am RIGHT DIABETIC FOOT INFECTION September 11:15am LAB WORK October 31, 2024 5:00a m LABWORK November 02, 2024 5:00a m wound November 13, 2024 10:30 am Reason for Visit Admit Date Iron deficiency anemia 2024 10:30am Other specified peripheral vascular dise ases 2024 10:30am 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 laye r exposed 2024 10:30am Non-pressure chronic ulcer o f other part of right foot with fat layer exposed 2024 10:30am Type 2 diabetes mellitus with diabetic p olyneuropathy 2024 10:30am Acute osteomyelitis of right calcaneus A pril 2024 3:52pm Bacteremia due to coagulase-negative Sta phylococcus 2024 3:52pm Diabetic ulcer of right heel 2024 3:52pm Other acute osteomyelitis, right ankle a nd foot 2024 3:52pm 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 2024 3:52pm Type 2 diabetes mellitus with diabetic p olyneuropathy 2024 3:52pm Acute osteomyelitis of right calcaneus M ay 2024 10:30am 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 November 13, 2024 10:30am Chief Complaint Admit Date DIABETES/ PLANTAR HEEL ULCER September 28, 2024 2:24pm wound 2024 10: 30am RIGHT DIABETIC FOOT INFECTION September 3:52pm RIGHT DIABETIC FOOT INFECTION September 6:35pm PREOP October 11, 2024 4:5 6am RIGHT DIABETIC FOOT INFECTION September 5:13pm RIGHT DIABETIC FOOT INFECTION September 7:47pm RIGHT DIABETIC FOOT INFECTION September 11:46am RIGHT DIABETIC FOOT INFECTION September 3:09pm RIGHT DIABETIC FOOT INFECTION September 11:11am RIGHT DIABETIC FOOT INFECTION September 11:15am LAB WORK October 31, 2024 5:00a m LABWORK November 02, 2024 5:00a m LAB WORK November 07, 2024 4:00a m wound November 13, 2024 10:30 am LAB WORK November 14, 2024 5:00a m LAB WORK November 21, 2024 5:50a m CHECK FOR LT TEMPORAL HEMMORAGE November 1:57pm wound December 04, 2024 10:0 0am Reason for Visit Admit Date Iron deficiency anemia 2024 10:30am Other specified peripheral vascular dise ases 2024 10:30am 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 laye r exposed 2024 10:30am Non-pressure chronic ulcer o f other part of right foot with fat layer exposed 2024 10:30am Type 2 diabetes mellitus with diabetic p olyneuropathy 2024 10:30am Acute osteomyelitis of right calcaneus A pril 2024 3:52pm Bacteremia due to coagulase-negative Sta phylococcus 2024 3:52pm Diabetic ulcer of right heel 2024 3:52pm Other acute osteomyelitis, right ankle a nd foot 2024 3:52pm 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 2024 3:52pm Type 2 diabetes mellitus with diabetic p olyneuropathy 2024 3:52pm Acute osteomyelitis of right calcaneus M ay 2024 10:30am 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 November 13, 2024 10:30am Acute osteomyelitis of right calcaneus J une 2024 10:00am Encounter for other orthopedic aftercare December 04, 2024 10:00am Non-pressure chronic ulcer o f other part of right foot with fat layer exposed December 04, 2024 10:00am 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 December 04, 2024 10:00am Chief Complaint Admit Date DIABETES/ PLANTAR HEEL ULCER September 28, 2024 2:24pm wound 2024 10: 30am RIGHT DIABETIC FOOT INFECTION September 3:52pm RIGHT DIABETIC FOOT INFECTION September 6:35pm PREOP October 11, 2024 4:5 6am RIGHT DIABETIC FOOT INFECTION September 5:13pm RIGHT DIABETIC FOOT INFECTION September 7:47pm RIGHT DIABETIC FOOT INFECTION September 11:46am RIGHT DIABETIC FOOT INFECTION September 3:09pm RIGHT DIABETIC FOOT INFECTION September 11:11am RIGHT DIABETIC FOOT INFECTION September 11:15am LAB WORK October 31, 2024 5:00a m LABWORK November 02, 2024 5:00a m LAB WORK November 07, 2024 4:00a m wound November 13, 2024 10:30 am LAB WORK November 14, 2024 5:00a m LAB WORK November 21, 2024 5:50a m CHECK FOR LT TEMPORAL HEMMORAGE November 1:57pm wound December 11, 2024 10:0 0am Reason for Visit Admit Date Iron deficiency anemia 2024 10:30am Other specified peripheral vascular dise ases 2024 10:30am 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 laye r exposed 2024 10:30am Non-pressure chronic ulcer o f other part of right foot with fat layer exposed 2024 10:30am Type 2 diabetes mellitus with diabetic p olyneuropathy 2024 10:30am Acute osteomyelitis of right calcaneus A pril 2024 3:52pm Bacteremia due to coagulase-negative Sta phylococcus 2024 3:52pm Diabetic ulcer of right heel 2024 3:52pm Other acute osteomyelitis, right ankle a nd foot 2024 3:52pm 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 2024 3:52pm Type 2 diabetes mellitus with diabetic p olyneuropathy 2024 3:52pm Acute osteomyelitis of right calcaneus M ay 2024 10:30am 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 November 13, 2024 10:30am Acute osteomyelitis of right calcaneus J une 2024 10:00am Encounter for other orthopedic aftercare December 11, 2024 10:00am Non-pressure chronic ulcer o f other part of right foot with fat layer exposed December 11, 2024 10:00am 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 December 11, 2024 10:00am Additional Source Comments (unrecognized sect ion and content) No Status Records FoundNo Status Records FoundNo Status Records FoundNo Status Records FoundNo Status Records FoundNo Status Records Found INFORMATION SOURCE (unrecogn ized section and content) DATE CREATED AUTHOR 12/06/2017 [facility] [employer] Rashmi Chan DATE CREATED AUTHOR AUTHOR'S ORGANIZ ATION 12/08/2017 [facility] DATE CREATED AUTHOR AUTHOR'S ORGANIZ ATION 02/12/2018 Bethanie keita DATE CREATED AUTHOR AUTHOR'S ORGANIZ ATION 10/25/2024 [facility] DATE CREATED AUTHOR AUTHOR'S ORGANIZ ATION 11/17/2024 [facility] DATE CREATED AUTHOR AUTHOR'S ORGANIZ ATION 12/12/2024 [facility] Goals (unrecognized section and content) Goals may be documented in a n alternate sectionGoals may be documented in an alternate sectionGoals may be documented in an alternate sectionGoals may be documented in an alternate sectionGoals may be documented in an alternate sectionGoals may be documented in an alternate sectionGoals may be documented in an alternate sectionGoals may be documented in an alternate sectionGoals may be documented in an alternate sectionGoals may be documented in an alternate section Care Teams (unrecognized sec tion and content) Team Status: Active Member Role Status Dates Dr. Dillan Beach MD Family Provider Active Dr. Bernabe Reese MD Primary Care Provider Active Team Status: Inactive Member Role Status Dates Dr. Bernabe Reese MD Primary Care Pr ovider, Attending Provider, Referring Provider Active Diamond Wheel Edger Relationship Specialty Start Date End Date Dillan Beach MD PCP - General Family Medicine 11/11/16 Team Status: Inactive Member Role Status Dates Dr. Bernabe Reese MD Primary Care Provider, Referr ing Provider Active Bernabe Angel DISTRIBUTION FIELD ENGINEER, DISTRIBUTION FIELD ENGINEER-C Attending Provider Active Team Status: Inactive Member Role Status Dates Dr. Bernabe Reese MD Primary Care Provider, Attend ing Provider Active Team Status: Active Member Role Status Dates Dr. Bernabe Reese MD Primary Care Provider Active Dr. Jerrod Mast MD Attending Provider Activ e Team Status: Active Member Role Status Dates Dr. Brenabe Reese MD Primary Care Provider Active Dr. Gui Bailey MD Emergency Provider Active Dr. Hilda Zimmerman MD Admit Provider, Attending Provider, Other Provider Active Dr. Gregorio Mccarthy MD Other Provider Active Team Status: Active Member Role Status Dates Dr. Bernabe Reese MD Primary Care Provider Active Dr. Gui Bailey MD Emergency Provider Active Dr. Hilda Zimmerman MD Admit Provider, Other Provider Active Dr. Gregorio Mccarthy MD Other Provider Active Dr. Lawrence Rodriguez MD Attending Provider Active Team Status: Inactive Member Role Status Dates Dr. Bernabe Reese MD Primary Care Provider Active Dr. Josr Muñoz DO Attending Provider, Emergency Pr ovider Active Team Status: Inactive Member Role Status Dates Dr. Bernabe Reese MD Primary Care Provider Active Dr. Gui Bailey MD Emergency Provider Active Dr. Hilda Zimmerman MD Admit Provider, Attending Prov ider Active Dr. Gregorio Mccarthy MD Other Provider Active Team Status: Inactive Member Role Status Dates Dr. Bernabe Reese MD Primary Care Provider, Referr ing Provider Active Dr. Sylvester Thomas MD Attending Provider Active Team Status: Active Member Role Status Dates Dr. Bernabe Reese MD Primary Care Provider Active Dr. Edward Luevano DO Emergency Provider Active Dr. Haily Santos DO Admit Provider, Other Pro vider Active Dr. Julee Spain , DO Attending Provider, Other Provide r Active JUSTO DixonM Other Provider Active Team Status: Active Member Role Status Dates Dr. Bernabe Reese MD Primary Care Provider Active Dr. Edward Luevano DO Emergency Provider Active Dr. Haily Santos DO Admit Provider, Other Pro vider Active Dr. Julee Spain , DO Attending Provider, Other Provide r Active Dr. Albert Root DPM Other Provider Active Dr. Gregorio Mccarthy MD Other Provider Active Team Status: Inactive Member Role Status Dates Dr. Bernabe Reese MD Primary Care Provider Active Dr. Edward Luevano , Emergency Provider Active Dr. Haily Santos DO Admit Provider, Other Pro vider Active Dr. Julee Spain DO Attending Provider Active Dr. Albert Root DPM Other Provider Active Dr. Gregorio Mccarthy MD Other Provider Active Team Status: Inactive Member Role Status Dates Dr. Bernabe Reese MD Primary Care Provider, Referr ing Provider Active Dr. Rocky Edwards MD Attending Provider Active Team Status: Inactive Member Role Status Dates Dr. Bernabe Reese MD Primary Care Provider Active Start: June 19, 2024 End: June 19, 2024 Dr. Bernabe Reese MD Attending Provider Active Start: June 19, 2024 End: June 19, 2024 Dr. Bernabe Reese MD Referring Provider Active Start: June 19, 2024 End: June 19, 2024 Team Status: Inactive Member Role Status Dates Dr. Bernabe Reese MD Primary Care Provider Active Start: August 02, 2024 End: August 02, 2024 Dr. Bernabe Reese MD Attending Provider Active Start: August 02, 2024 End: August 02, 2024 Dr. Bernabe Reese MD Referring Provider Active Start: August 02, 2024 End: August 02, 2024 Team Status: Inactive Member Role Status Dates Dr. Bernabe Reese MD Primary Care Provider Active Start: August 22, 2024 End: August 22, 2024 Dr. Ramon Garcia DPM Attending Provider Active Start: August 22, 2024 End: August 22, 2024 Team Status: Active Member Role Status Dates Dr. Bernabe Reese MD Primary Care Provider Active Team Status: Inactive Member Role Status Dates Dr. Bernabe Reese MD Primary Care Provider Active Start: September 28, 2024 End: September 28, 2024 Dr. Ramon Garcia DPM Attending Provider Active Start: September 28, 2024 End: September 28, 2024 Dr. Ramon Garcia DPM Referring Provider Active Start: September 28, 2024 End: September 28, 2024 Team Status: Active Member Role Status Dates Dr. Bernabe Reese MD Primary Care Provider Active Start: October 02, 2024 Dr. Ramon Garcia DPM Attending Provider Active Start: October 02, 2024 Dr. Albert Root DPM Referring Provider Active Start: October 02, 2024 Team Status: Active Member Role Status Dates Dr. Bernabe Reese MD Primary Care Provider Active Start: 2024 Dr. Ramon Garcia DPM Attending Provider Active Start: 2024 Dr. Albert Root DPM Referring Provider Active Start: 2024 Team Status: Active Member Role Status Dates Dr. Bernabe Reese MD Primary Care Provider Active Start: 2024 Dr. Logan Gifford DO Emergency Provider Active Start : 2024 Dr. Chula Antunez MD Admit Provider Active Star t: 2024 Dr. Chula Antunez MD Attending Provider Active Start: 2024 Dr. 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 Bernabe Reese MD Primary Care Provider Active Start: 2024 End: October 17, 2024 Dr. Ramon Garica DPM Attending Provider Active Start: 2024 End: October 17, 2024 Dr. Albert Root DPM Referring Provider Active Start: 2024 End: October 17, 2024 Team Status: Inactive Member Role Status Dates Dr. Bernabe Reese MD Primary Care Provider Active Start: 2024 End: October 16, 2024 Dr. Logan Gifford DO Emergency Provider Active Start : 2024 End: October 16, 2024 Dr. Chula Antunez MD Admit Provider Active Star t: 2024 End: October 16, 2024 Dr. Chula Antunez MD Other Provider Active Star t: 2024 End: October 16, 2024 Dr. Haily Santos , Attending Provider Active Start: 2024 End: October 16, 2024 Dr. Ozzy Cabrera , Other Provider Active S tart: 2024 End: October 16, 2024 Daniel Dominique MD Other Provider Active Start: 2024 End: October 16, 2024 Dr. Harpreet Herring MD Other Provider Active Start: 2024 End: October 16, 2024 Elizabeth Bettencourt MD Other Provider Active Start : 2024 End: October 16, 2024 Dr. Najma Butler , Other Provider Active St art: 2024 End: October 16, 2024 Dr. Jessy Moore MD Other Provider Active Start: 2024 End: October 16, 2024 Dr. Silas Sanchez MD Other Provider Active Sta rt: 2024 End: October 16, 2024 Dr. Laura Flores MD Other Provider Active Start : 2024 End: October 16, 2024 Dr. Dillan Guzman MD Other Provider Active Start: 2024 End: October 16, 2024 Dr. Jing Joshi MD Other Provider Active Start : 2024 End: October 16, 2024 Dr. Israel Schreiber MD Other Provider Active Sta rt: 2024 End: October 16, 2024 Helga Loo MD Other Provider Active Start : 2024 End: October 16, 2024 Dr. Hansel Owen MD Other Provider Active St art: 2024 End: October 16, 2024 Dr. Janay Sevilla MD Other Provider Active Start : 2024 End: October 16, 2024 Dr. Ada Mena MD Other Provider Active Sta rt: 2024 End: October 16, 2024 Dr. Aishwarya Giordano MD Other Provider Active Start: 2024 End: October 16, 2024 Dr. Tonio Pickard MD Other Provider Active St art: 2024 End: October 16, 2024 Dr. Rakesh Morris MD Other Provider Active Star t: 2024 End: October 16, 2024 Dr. James Garcia MD Other Provider Active St art: 2024 End: October 16, 2024 Dr. Marita Spain MD Other Provider Active Start: 2024 End: October 16, 2024 Christine Ross MD Other Provider Active Start: 2024 End: October 16, 2024 Dr. Gregorio Mccarthy MD Other Provider Active Start: 2024 End: October 16, 2024 Dr. Albert Root DPM Other Provider Active Start: 2024 End: October 16, 2024 Team Status: Active Member Role Status Dates Dr. Bernabe Reese MD Primary Care Provider Active Start: October 10, 2024 Dr. Logan Gifford DO Emergency Provider Active Start : October 10, 2024 Dr. Chula Antunez MD Admit Provider Active Star t: October 10, 2024 Dr. Chula Antunez MD Other Provider Active Star t: October 10, 2024 Dr. Albert Root DPM Other Provider Active Start: October 10, 2024 Dr. Ozzy Cabrera DO Attending Provider Active Start: October 10, 2024 Dr. Ozzy Cabrera DO Other Provider Active S tart: October 10, 2024 Team Status: Active Member Role Status Dates Dr. Bernabe Reese MD Primary Care Provider Active Start: October 11, 2024 End: October 11, 2024 Dr. Chetan Cowan MD Attending Provider Active Start: October 11, 2024 End: October 11, 2024 Dr. Francisco Abarca MD Referring Provider Active Start: October 11, 2024 End: October 11, 2024 Team Status: Active Member Role Status Dates Dr. Bernabe Reese MD Primary Care Provider Active Start: October 11, 2024 Dr. Logan Gifford DO Emergency Provider Active Start : October 11, 2024 Dr. Chula Antunez MD Admit Provider Active Star t: October 11, 2024 Dr. Chula Antunez MD Other Provider Active Star t: October 11, 2024 Dr. Ozzy Cabrera DO Attending Provider Active Start: October 11, 2024 Dr. Ozzy Cabrera , DO Other Provider Active S tart: October 11, 2024 Dr. Albert Root DPM Other Provider Active Start: October 11, 2024 Dr. Gregorio Mccarthy MD Other Provider Active Start: October 11, 2024 Team Status: Active Member Role Status Dates Dr. Bernabe Reese MD Primary Care Provider Active Start: October 12, 2024 Dr. Logan Gifford DO Emergency Provider Active Start : October 12, 2024 Dr. Chula Antunez MD Admit Provider Active Star t: October 12, 2024 Dr. Chula Antunez MD Other Provider Active Star t: October 12, 2024 Dr. Ozzy Cabrera DO Attending Provider Active Start: October 12, 2024 Dr. Ozzy Cabrera DO Other Provider Active S tart: October 12, 2024 Dr. Albert Root DPM Other Provider Active Start: October 12, 2024 Dr. Gregorio Mccarthy MD Other Provider Active Start: October 12, 2024 Team Status: Active Member Role Status Dates Dr. Bernabe Reese MD Primary Care Provider Active Start: October 13, 2024 Dr. Logan Gifford DO Emergency Provider Active Start : October 13, 2024 Dr. Chula Antunez MD Admit Provider Active Star t: October 13, 2024 Dr. Chula Antunez MD Other Provider Active Star t: October 13, 2024 Dr. Ozzy Cabrera DO Attending Provider Active Start: October 13, 2024 Dr. Ozzy Cabrera DO Other Provider Active S tart: October 13, 2024 Dr. Albert Root DPM Other Provider Active Start: October 13, 2024 Dr. Gregorio Mccarthy MD Other Provider Active Start: October 13, 2024 Team Status: Active Member Role Status Dates Dr. Bernabe Reese MD Primary Care Provider Active Start: October 14, 2024 Dr. Logan Gifford DO Emergency Provider Active Start : October 14, 2024 Dr. Chula Antunez MD Admit Provider Active Star t: October 14, 2024 Dr. Chula Antunez MD Other Provider Active Star t: October 14, 2024 Dr. Ozzy Cabrera , DO Attending Provider Active Start: October 14, 2024 Dr. Ozzy Cabrera , DO Other Provider Active S tart: October 14, 2024 Dr. Albert Root DPM Other Provider Active Start: October 14, 2024 Dr. Gregorio Mccarthy MD Other Provider Active Start: October 14, 2024 Team Status: Active Member Role Status Dates Dr. Bernabe Reese MD Primary Care Provider Active Start: October 15, 2024 Dr. Logan Gifford , DO Emergency Provider Active Start : October 15, 2024 Dr. Chula Antunez MD Admit Provider Active Star t: October 15, 2024 Dr. Chula Antunez MD Other Provider Active Star t: October 15, 2024 Dr. Haily Santos , Attending Provider Active Start: October 15, 2024 Dr. Haily Santos , DO Other Provider Active Start: October 15, 2024 Dr. Ozzy Cabrera , DO Other Provider Active S tart: October 15, 2024 Dr. Gregorio Mccarthy MD Other Provider Active Start: October 15, 2024 Dr. Albert Root DPM Other Provider Active Start: October 15, 2024 Team Status: Active Member Role Status Dates Dr. Bernabe Reese MD Primary Care Provider Active Start: October 16, 2024 Dr. Logan Gifford , DO Emergency Provider Active Start : October 16, 2024 Dr. Chula Antunez MD Admit Provider Active Star t: October 16, 2024 Dr. Chula Antunez MD Other Provider Active Star t: October 16, 2024 Dr. Haily Santos , Attending Provider Active Start: October 16, 2024 Dr. Haily Santos DO Other Provider Active Start: October 16, 2024 Dr. Ozzy Cabrera , DO Other Provider Active S tart: October 16, 2024 Dr. Gregorio Mccarthy MD Other Provider Active Start: October 16, 2024 Dr. Albert Root DPM Other Provider Active Start: October 16, 2024 Team Status: Active Member Role Status Dates Dr. Bernabe Reese MD Primary Care Provider Active Start: October 31, 2024 Dr. Kelli LUNA MD Attending Provider Active Start: October 31, 2024 Team Status: Active Member Role Status Dates Dr. Bernabe Reese MD Primary Care Provider Active Start: November 02, 2024 Dr. Kelli LUNA MD Attending Provider Active Start: November 02, 2024 Team Status: Active Member Role Status Dates Dr. Bernabe Reese MD Primary Care Provider Active Start: November 07, 2024 Dr. Kelli LUNA MD Attending Provider Active Start: November 07, 2024 Team Status: Inactive Member Role Status Dates Dr. Bernabe Reese MD Primary Care Provider Active Start: November 13, 2024 End: November 17, 2024 Dr. Ramon Garcia DPM Attending Provider Active Start: November 13, 2024 End: November 17, 2024 Dr. Albert Root DPM Referring Provider Active Start: November 13, 2024 End: November 17, 2024 Team Status: Active Member Role Status Dates Dr. Bernabe Reese MD Primary Care Provider Active Start: November 14, 2024 Dr. Kelli LUNA MD Attending Provider Active Start: November 14, 2024 Team Status: Active Member Role Status Dates Dr. Bernabe Reese MD Primary Care Provider Active Start: November 07, 2024 Dr. Kelli LUNA MD Attending Provider Active Start: November 07, 2024 Dr. Kelli LUNA MD Referring Provider Active Start: November 07, 2024 Team Status: Active Member Role Status Dates Dr. Bernabe Reese MD Primary Care Provider Active Start: November 21, 2024 Dr. Kelli LUNA MD Attending Provider Active Start: November 21, 2024 Team Status: Inactive Member Role Status Dates Dr. Bernabe Reese MD Primary Care Provider Active Start: November 29, 2024 End: November 29, 2024 Dr. Kelli Salgado MD Attending Provider Active Start: November 29, 2024 End: November 29, 2024 Dr. Kelli Salgado MD Referring Provider Active Start: November 29, 2024 End: November 29, 2024 Team Status: Active Member Role Status Dates Dr. Bernabe Reese MD Primary Care Provider Active Start: December 04, 2024 Dr. Ramon Garcia DPM Attending Provider Active Start: December 04, 2024 Dr. Albert Root DPM Referring Provider Active Start: December 04, 2024 Team Status: Active Member Role/Relationship Status Dates Dr. Bernabe Reese MD Primary Care Provider Active Team Status: Inactive Member Role/Relationship Status Dates Dr. Bernabe Reese MD Primary Care Provider Active Start: August 22, 2024 End: August 22, 2024 Dr. Ramon Garcia DPM Attending Provider Active Start: August 22, 2024 End: August 22, 2024 Team Status: Inactive Member Role/Relationship Status Dates Dr. Bernabe Reese MD Primary Care Provider Active Start: September 28, 2024 End: September 28, 2024 Dr. Ramon Garcia DPM Attending Provider Active Start: September 28, 2024 End: September 28, 2024 Dr. Ramon Garcia DPM Referring Provider Active Start: September 28, 2024 End: September 28, 2024 Team Status: Inactive Member Role/Relationship Status Dates Dr. Bernabe Reese MD Primary Care Provider Active Start: 2024 End: October 17, 2024 Dr. Ramon Garcia DPM Attending Provider Active Start: 2024 End: October 17, 2024 Dr. Albert Root DPM Referring Provider Active Start: 2024 End: October 17, 2024 Team Status: Inactive Member Role/Relationship Status Dates Dr. Bernabe Reese MD Primary Care Provider Active Start: 2024 End: October 16, 2024 Dr. Logan Gifford DO Emergency Provider Active Start : 2024 End: October 16, 2024 Dr. Chula Antunez MD Admit Provider Active Star t: 2024 End: October 16, 2024 Dr. Chula Antunez MD Other Provider Active Star t: 2024 End: October 16, 2024 Dr. Haily Santos DO Attending Provider Active Start: 2024 End: October 16, 2024 Dr. Ozzy Cabrera DO Other Provider Active S tart: 2024 End: October 16, 2024 Daniel Dominique MD Other Provider Active Start: Ap 2024 End: October 16, 2024 Dr. Harpreet Herring MD Other Provider Active Start: 2024 End: October 16, 2024 Elizabeth Bettencourt MD Other Provider Active Start : 2024 End: October 16, 2024 Dr. Najma Butler DO Other Provider Active St art: 2024 End: October 16, 2024 Dr. Jessy oMore MD Other Provider Active Start: 2024 End: October 16, 2024 Dr. Silas Sanchez MD Other Provider Active Sta rt: 2024 End: October 16, 2024 Dr. Laura Flores MD Other Provider Active Start : 2024 End: October 16, 2024 Dr. Dillan Guzman MD Other Provider Active Start: 2024 End: October 16, 2024 Dr. Jing Joshi MD Other Provider Active Start : 2024 End: October 16, 2024 Dr. Israel Schreiber MD Other Provider Active Sta rt: 2024 End: October 16, 2024 Helga Loo MD Other Provider Active Start : 2024 End: October 16, 2024 Dr. Hansel Owen MD Other Provider Active St art: 2024 End: October 16, 2024 Dr. Janay Sevilla MD Other Provider Active Start : 2024 End: October 16, 2024 Dr. Ada Mena MD Other Provider Active Sta rt: 2024 End: October 16, 2024 Dr. Aishwarya Giordano MD Other Provider Active Start: 2024 End: October 16, 2024 Dr. Tonio Pickard MD Other Provider Active St art: 2024 End: October 16, 2024 Dr. Rakesh Morris MD Other Provider Active Star t: 2024 End: October 16, 2024 Dr. James Garcia MD Other Provider Active St art: 2024 End: October 16, 2024 Dr. Marita Spain MD Other Provider Active Start: 2024 End: October 16, 2024 Christine Ross MD Other Provider Active Start: 2024 End: October 16, 2024 Dr. Gregorio Mccarthy MD Other Provider Active Start: 2024 End: October 16, 2024 Dr. Albert Root DPM Other Provider Active Start: 2024 End: October 16, 2024 Team Status: Active Member Role/Relationship Status Dates Dr. Bernabe Reese MD Primary Care Provider Active Start: October 10, 2024 Dr. Logan Gifford DO Emergency Provider Active Start : October 10, 2024 Dr. Chula Antunez MD Admit Provider Active Star t: October 10, 2024 Dr. Chula Antunez MD Other Provider Active Star t: October 10, 2024 Dr. Albert Root DPM Other Provider Active Start: October 10, 2024 Dr. Ozzy Cabrera DO Attending Provider Active Start: October 10, 2024 Dr. Ozzy Cabrera DO Other Provider Active S tart: October 10, 2024 Team Status: Active Member Role/Relationship Status Dates Dr. Bernabe Reese MD Primary Care Provider Active Start: October 11, 2024 End: October 11, 2024 Dr. Chetan Cowan MD Attending Provider Active Start: October 11, 2024 End: October 11, 2024 Dr. Francisco Abarca MD Referring Provider Active Start: October 11, 2024 End: October 11, 2024 Team Status: Active Member Role/Relationship Status Dates Dr. Bernabe Reese MD Primary Care Provider Active Start: October 11, 2024 Dr. Logan Gifford DO Emergency Provider Active Start : October 11, 2024 Dr. Chula Antunez MD Admit Provider Active Star t: October 11, 2024 Dr. Chula Antunez MD Other Provider Active Star t: October 11, 2024 Dr. Ozzy Cabrera DO Attending Provider Active Start: October 11, 2024 Dr. Ozzy Cabrera DO Other Provider Active S tart: October 11, 2024 Dr. Albert Root DPM Other Provider Active Start: October 11, 2024 Dr. Gregorio Mccarthy MD Other Provider Active Start: October 11, 2024 Team Status: Active Member Role/Relationship Status Dates Dr. Bernabe Reese MD Primary Care Provider Active Start: October 12, 2024 Dr. Logan Gifford DO Emergency Provider Active Start : October 12, 2024 Dr. Chula Antunez MD Admit Provider Active Star t: October 12, 2024 Dr. Chula Antunez MD Other Provider Active Star t: October 12, 2024 Dr. Ozzy Cabrera DO Attending Provider Active Start: October 12, 2024 Dr. Ozzy Cabrera DO Other Provider Active S tart: October 12, 2024 Dr. Albert Root DPM Other Provider Active Start: October 12, 2024 Dr. Gregorio Mccarthy MD Other Provider Active Start: October 12, 2024 Team Status: Active Member Role/Relationship Status Dates Dr. Bernabe Reese MD Primary Care Provider Active Start: October 13, 2024 Dr. Logan Gifford DO Emergency Provider Active Start : October 13, 2024 Dr. Chula Antunez MD Admit Provider Active Star t: October 13, 2024 Dr. Chula Antunez MD Other Provider Active Star t: October 13, 2024 Dr. Ozzy Cabrera DO Attending Provider Active Start: October 13, 2024 Dr. Ozzy Cabrera DO Other Provider Active S tart: October 13, 2024 Dr. Albert Root DPM Other Provider Active Start: October 13, 2024 Dr. Gregorio Mccarthy MD Other Provider Active Start: October 13, 2024 Team Status: Active Member Role/Relationship Status Dates Dr. Bernabe Reese MD Primary Care Provider Active Start: October 14, 2024 Dr. Logan Gifford DO Emergency Provider Active Start : October 14, 2024 Dr. Chula Antunez MD Admit Provider Active Star t: October 14, 2024 Dr. Chula Antunez MD Other Provider Active Star t: October 14, 2024 Dr. Ozzy Cabrera DO Attending Provider Active Start: October 14, 2024 Dr. Ozzy Cabrera DO Other Provider Active S tart: October 14, 2024 Dr. Albert Root DPM Other Provider Active Start: October 14, 2024 Dr. Gregorio Mccarthy MD Other Provider Active Start: October 14, 2024 Team Status: Active Member Role/Relationship Status Dates Dr. Bernabe Reese MD Primary Care Provider Active Start: October 15, 2024 Dr. Logan Gifford , DO Emergency Provider Active Start : October 15, 2024 Dr. Chula Antunez MD Admit Provider Active Star t: October 15, 2024 Dr. Chula Antunez MD Other Provider Active Star t: October 15, 2024 Dr. Haily Santos , DO Attending Provider Active Start: October 15, 2024 Dr. Haily Santos , DO Other Provider Active Start: October 15, 2024 Dr. Ozzy Cabrera , DO Other Provider Active S tart: October 15, 2024 Dr. Gregorio Mccarthy MD Other Provider Active Start: October 15, 2024 Dr. Albert Root DPM Other Provider Active Start: October 15, 2024 Team Status: Active Member Role/Relationship Status Dates Dr. Bernabe Reese MD Primary Care Provider Active Start: October 16, 2024 Dr. Logan Gifford , DO Emergency Provider Active Start : October 16, 2024 Dr. Chula Antunez MD Admit Provider Active Star t: October 16, 2024 Dr. Chula Antunez MD Other Provider Active Star t: October 16, 2024 Dr. Haily Santos , DO Attending Provider Active Start: October 16, 2024 Dr. Haily Santos , DO Other Provider Active Start: October 16, 2024 Dr. Ozzy Cabrera , DO Other Provider Active S tart: October 16, 2024 Dr. Gregorio Mccarthy MD Other Provider Active Start: October 16, 2024 Dr. Albert Root DPM Other Provider Active Start: October 16, 2024 Team Status: Active Member Role/Relationship Status Dates Dr. Bernabe Reese MD Primary Care Provider Active Start: October 31, 2024 Dr. Kelli LUNA MD Attending Provider Active Start: October 31, 2024 Team Status: Active Member Role/Relationship Status Dates Dr. Bernabe Reese MD Primary Care Provider Active Start: November 02, 2024 Dr. Kelli LUNA MD Attending Provider Active Start: November 02, 2024 Team Status: Active Member Role/Relationship Status Dates Dr. Bernabe Reese MD Primary Care Provider Active Start: November 07, 2024 Dr. Kelli LUNA MD Attending Provider Active Start: November 07, 2024 Dr. Kelli LUNA MD Referring Provider Active Start: November 07, 2024 Team Status: Inactive Member Role/Relationship Status Dates Dr. Bernabe Reese MD Primary Care Provider Active Start: November 13, 2024 End: November 17, 2024 Dr. Ramon Garcia DPM Attending Provider Active Start: November 13, 2024 End: November 17, 2024 Dr. Albert Root DPM Referring Provider Active Start: November 13, 2024 End: November 17, 2024 Team Status: Active Member Role/Relationship Status Dates Dr. Bernabe Reese MD Primary Care Provider Active Start: November 14, 2024 Dr. Kelli LUNA MD Attending Provider Active Start: November 14, 2024 Team Status: Active Member Role/Relationship Status Dates Dr. Bernabe Reese MD Primary Care Provider Active Start: November 21, 2024 Dr. Kelli LUNA MD Attending Provider Active Start: November 21, 2024 Team Status: Inactive Member Role/Relationship Status Dates Dr. Bernabe Reese MD Primary Care Provider Active Start: November 29, 2024 End: November 29, 2024 Dr. Kelli Salgado MD Attending Provider Active Start: November 29, 2024 End: November 29, 2024 Dr. Kelli Salgado MD Referring Provider Active Start: November 29, 2024 End: November 29, 2024 Team Status: Active Member Role/Relationship Status Dates Dr. Bernabe Reese MD Primary Care Provider Active Start: December 10, 2024 Dr. Kelli LUNA MD Attending Provider Active Start: December 10, 2024 Team Status: Inactive Member Role/Relationship Status Dates Dr. Bernabe Reese MD Primary Care Provider Active Start: December 11, 2024 End: December 17, 2024 Dr. Albert Root DPM Referring Provider Active Start: December 11, 2024 End: December 17, 2024 Dr. Canelo Cavazos MD Attending Provider Active Start: December 11, 2024 End: December 17, 2024 Source Comments (unrecognize d section and content) In the event this informatio n is protected by the Federal Confidentiality of Alcohol and Drug Abuse Patient Records regulations: The Federal rules restrict any use of the information to criminally investigate or prosecute any alcohol or drug abuse patient.[facility] Scheduled Active and Recently Administ ered Medications (unrecognized section and content) Medication Order 10/28/2024 10/29/2024 10/30/2024 amLODIPine (NORVASC) tablet 10 mg 10 mg, Oral, DAILY, First dose on Tue10/22/24 at 0900, Until Discontinued 816 (Given - Provider: Aixa Arvizu RN) 853 (Given - Provider: Danielle Ricardo RN) 799 (Given - Provider: Felicitas Reed, ZEN) aspirin chewable tablet 81 mg 81 mg, Oral, DAILY, First dose on Tue10/24/24 at 1045, Until Discontinued 816 (Given - Provider: Aixa Arvizu RN) 08 (Given - Provider: Danielle Ricardo RN) 08 (Given - Provider: Felicitas Reed, ZEN) Atorvastatin (LIPITOR) tablet 40 mg 40 mg, Oral, DAILY AT BEDTIME, First dose (after last modification) on Tue10/18/24 at 2100, Until Discontinued 2125 (Given - Provider: Vishal Avila RN) 2118 (Given - Provider: Luis Yang, ZEN) carveDILOL (COREG) tablet 3.125 mg 3.125 mg, Oral, EVERY 12 HOURS, First dose (after last modification) on 10/27/24 at 1015, Until Discontinued 816 (Given - Provider: Aixa Arvizu RN)2125 (Given - Provider: Vishal Avila RN) 08 (Given - Provider: Danielle Ricardo RN)2118 (Given - Provider: Luis Yang, ZEN) 08 (Given - Provider: Felicitas Reed RN) Enoxaparin Sodium (LOVENOX) injection 30 mg 30 mg, Subcutaneous, EVERY 12 HOURS NON-STANDARD, First dose (after last modification) on Tue10/21/24 at 2330, Until Discontinued, For SUBCUTANEOUS route ONLY: alternate injection sites between left and right abdominal wall, pinching location and avoiding area around navel. If unable to use abdominal sites, may use the front or side of thighs., Indications: DVT/PE prophylaxis 1319 (Given - Provider: Aixa Arvizu RN)2257 (Given - Provider: Vishal Avila RN) 1250 (Given - Provider: Danielle Ricardo RN)2335 (Given - Provider: Luis Yang, RN) 1130 (Canceled Entry - Provider: System Discharge - Comment: Automatically canceled at discontinue of medication order) Fluconazole (DIFLUCAN) tablet 400 mg 400 mg, Oral, DAILY, First dose on Tue10/22/24 at 1500, Until Discontinued, Swallow tablet whole; do not crush, split or chew. Contact pharmacy if alternate route or dose is needed. 0817 (Given - Provider: Aixa Arvizu RN) 0854 (Given - Provider: Danielle Ricardo RN) 0800 (Given - Provider: Felicitas Reed, ZEN) furOSEmide (LASIX) tablet 20 mg 20 mg, Oral, DAILY, First dose on Tue10/22/24 at 1045, Until Discontinued 0817 (Given - Provider: Aixa Arvizu RN) 0854 (Given - Provider: Danielle Ricardo RN) 0800 (Given - Provider: Felicitas Reed, RN) Gabapentin (NEURONTIN) capsule 800 mg 800 mg, Oral, 3 TIMES DAILY, First dose (after last modification) on Tue10/25/24 at 1400, Until Discontinued 0817 (Given - Provider: Aixa Arvizu RN)1316 (Given - Provider: Aixa Arvizu RN)2126 (Given - Provider: Vishal Avila RN) 0855 (Given - Provider: Danielle Ricardo RN)1438 (Given - Provider: Danielle Ricardo RN)2119 (Given - Provider: Luis Yang RN) 0800 (Given - Provider: Felicitas Reed, ZEN) insulin glargine-yfgn (SEMGLEE) injection 28 Units(Linked Group 1) 28 Units, Subcutaneous, EVERY 24 HOURS, First dose (after last modification) on Tue10/19/24 at 1200, Until Discontinued, Do not mix in syringe with other insulins. 1319 (Given - Provider: Aixa Arvizu RN) 1249 (Given - Provider: Danielle Ricardo RN) 1200 (Canceled Entry - Provider: System Discharge - Comment: Automatically canceled at discontinue of medication order) Insulin lispro (HUMALOG) injection(Linked Group 2) Subcutaneous, 4 TIMES DAILY WITH MEALS & AT BEDTIME, First dose on Tue10/19/24 at 0830, Until Discontinued, Insulin to carb ratio: Non-Standard: 1 unit insulin = 6 grams carbs every meal and at bedtime Correction Factor: 151-175 = 1 unit; 176-200 = 2 units; 201-225 = 3 units; 226-250 = 4 units; 251-275 = 5 units; 276-300 = 6 units; 301-325 = 7 units; 326-350 = 8 units; Kwikpen: Prime pen before each injection; refer to Pen Priming and Care Handout for further details. Warning! Confirm patient. Insulin pen is for labeled individual patient use ONLY. 0950 (Given - Provider: Aixa Arvizu RN)1318 (Given - Provider: Aixa Arvizu RN)1819 (Given - Provider: Aixa Arvizu RN)2138 (Given - Provider: Vishal Avila RN) 0855 (Given - Provider: Danielle Ricardo RN)1250 (Given - Provider: Danielle Ricardo RN)1703 (Not Given - Provider: Danielle Ricardo RN - Reason: Medication not available - Comment: pen ran out)1708 (Not Given - Provider: Danielle Ricardo RN - Reason: Medication not available - Comment: Pen ran out)1732 (Given - Provider: Danielle Ricardo RN - Comment: pen ran out; insulin given when pen became avaliable)2120 (Given - Provider: Luis Yang RN) 0759 (Given - Provider: Felicitas Reed RN)1200 (Canceled Entry - Provider: System Discharge - Comment: Automatically canceled at discontinue of medication order) Losartan (COZAAR) tablet 50 mg 50 mg, Oral, DAILY, First dose (after last modification) on Tue10/24/24 at 0900, Until Discontinued 0817 (Given - Provider: Aixa Arvizu RN) 0854 (Given - Provider: Danielle Ricardo, RN) 0800 (Given - Provider: Felicitas Reed, RN) Meropenem (MERREM) 1 g in sodium chloride 0.9% (MB PLUS) 100 mL (total volume) IVPB 1 g, Intravenous, Administer over 3 Hours, EVERY 8 HOURS NON-STANDARD, 110 doses, First dose (after last modification) on Tue10/17/24 at 1400, Last dose on Tue11/22/24 at 1415, Extended Infusion 0203 (Stopped - Provider: Vishal Avila RN)0547 (Canceled Entry - Provider: Vishal Avila RN)0620 ($$New Bag$$ - Provider: Vishal Avila RN)0920 (Stopped - Provider: Aixa Arvizu RN)1327 ($$New Bag$$ - Provider: Aixa Arvizu RN)1428 (Paused - Provider: Felicitas Reed RN)1430 (Restarted - Provider: Felicitas Reed RN)1627 (Stopped - Provider: Aixa Arvizu RN)1631 (Stopped - Provider: Felicitas Reed RN)2136 ($$New Bag$$ - Provider: Vishal Avila RN) 0526 ($$New Bag$$ - Provider: Vishal Avila RN)1448 ($$New Bag$$ - Provider: Danielle Ricardo RN)2130 ($$New Bag$$ - Provider: Luis Yang RN) 0015 (Stopped - Provider: Luis Yang RN)0531 ($$New Bag$$ - Provider: Luis Yang RN)0840 (Stopped - Provider: Felicitas Reed, ZEN) Multivitamin w/ minerals (THERAPEUTIC-M) tablet 1 tablet 1 tablet, Oral, DAILY, First dose on Tue10/26/24 at 0900, Until Discontinued 816 (Given - Provider: Aixa Arvizu RN) 0855 (Given - Provider: Danielle Ricardo, RN) 0800 (Given - Provider: Fleicitas Reed, RN) Polyethylene glycol (MIRALAX) packet 17 g 17 g, Oral, EVERY 12 HOURS, First dose (after last modification) on Tue10/19/24 at 2100, Until Discontinued 816 (Not Given - Provider: Aixa Arvizu RN - Reason: Patient/family refused)2126 (Not Given - Provider: Vishal Avila RN - Reason: Patient/family refused) 899 (Not Given - Provider: Danielle Ricardo RN - Reason: Patient with symptoms)2117 (Not Given - Provider: Luis Yang RN - Reason: Patient/family refused) 08 (Not Given - Provider: Felicitas Reed RN - Reason: Patient/family refused) ProSource No Carb 1 Package 1 Package, Oral, 3 TIMES DAILY, First dose on Tue10/25/24 at 1545, Until Discontinued, Add contents of packet to 2-4oz of a beverage, or to soups, purees, and hot or cold foods. 08 (Given - Provider: Aixa Arvizu RN)1315 (Given - Provider: Aixa Arvizu RN)2137 (Given - Provider: Vishal Avila, RN) 0854 (Given - Provider: Danielle Ricardo, RN)143 (Given - Provider: Danielle Ricardo, RN)2117 (Given - Provider: Luis Yang, RN) 0807 (Given - Provider: Felicitas Reed, RN) Senna (SENOKOT) tablet 8.6 mg 8.6 mg, Oral, EVERY 12 HOURS, First dose (after last modification) on Tue10/19/24 at 2100, Until Discontinued 816 (Not Given - Provider: Aixa Arvizu RN - Reason: Patient/family refused)2126 (Not Given - Provider: Vishal Avila RN - Reason: Patient/family refused) 09 (Not Given - Provider: Danielle Ricardo RN - Reason: Patient with symptoms)2138 (Not Given - Provider: Luis Yang RN - Reason: Patient/family refused) 08 (Not Given - Provider: Felicitas Reed RN - Reason: Patient/family refused) Vancomycin (VANCOCIN) 750 mg in Sodium chloride 0.9%, with overfill 282.5 mL (total volume) IVPB 750 mg, Intravenous, Administer over 2 Hours, EVERY 12 HOURS NON-STANDARD, 67 doses, First dose (after last modification) on 10/20/24 at 1230, Last dose on Paula 11/22/24 at 1500, Indication for treatment with Vancomycin - Culture/Source: osteomyelitis Extravasation Risk 0255 ($$New Bag$$ - Provider: Vishal Avila, RN)0452 (Stopped - Provider: Vishal Avila RN)1638 ($$New Bag$$ - Provider: Aixa Arvizu RN) 0225 ($$New Bag$$ - Provider: Vishal Avila RN)1458 ($$New Bag$$ - Provider: Danielle Ricardo, ZEN) 0211 ($$New Bag$$ - Provider: Luis Yang, RN)0415 (Stopped - Provider: Luis Yang, RN) PRN Medication Order 10/28/2024 10/29/2024 10/30/2024 bisacodyl (DULCOLAX) suppository 10 mg 10 mg, Rectal, NEEDED, Starting on Tue10/19/24 at 1049, Until Tue10/30/24 at 1241, Constipation 2nd Line Dextrose 50% injection 7.5-25 g(Linked Group 2) 7.5-25 g, Intravenous, ADMINISTER DIRECTED, Starting on Tue10/19/24 at 0824, Until Tue10/30/24 at 1241, Blood glucose <80 mg/dL, For patients who are not alert, are NPO, or are on IV insulin infusion administer as directed per Hypoglycemia in Non- Adults Clinical Practice Guideline. For Blood Glucose: 60-79 mg/dL administer 7.5 gm (15ml); 45-59 mg/dL administer 12.5 gm (25ml); less than 45mg/dL administer 25gm (50ml). ++ If additional dextrose 50% needed, contact pharmacy or obtain from [facility] cart ++ glucose (GLUTOSE) 40 % oral gel 1-2 Tube(Linked Group 2) 1-2 Tube, Oral, ADMINISTER DIRECTED, Starting on Tue10/19/24 at 0824, Until Tue10/30/24 at 1241, Blood glucose <80 mg/dL, For patients who are alert, able to tolerate PO intake and with intact cognitive status administer as directed per Hypoglycemia in Non- Adults Clinical Practice Guideline. For Blood Glucose: 60-79 mg/dL administer 1 tube; 45-59 mg/dl administer 1.5 tubes; less than 45 mg/dL administer 2 tubes. Each tube of 37.5g delivers 15g of carbohydrate. hydrALAZINE (APRESOLINE) injection 10 mg(Linked Group 3) 10 mg, Intravenous, EVERY 1 HOUR NEEDED, Starting on Tue10/16/24 at 2243, Until Tue10/30/24 at 124, See administration instructions, Use as initial dose for Systolic Blood Pressure GREATER than 160 mmHg and Heart rate LESS than 60 beats per minute. Higher dose may be administered if lower dose was previously documented as ineffective 10 minutes after administration and did not result in adverse effects (HR>90) hydrALAZINE (APRESOLINE) injection 20 mg(Linked Group 3) 20 mg, Intravenous, EVERY 1 HOUR NEEDED, Starting on Tue10/16/24 at 2243, Until Tue10/30/24 at 124, See administration instructions, Higher dose may be administered for Systolic Blood Pressure GREATER than 160 mmHg and Heart rate LESS than 60 beats per minute if lower dose was previously documented as ineffective 10 minutes after administration and did not result in adverse effects (HR>90). Decrease back to lower dose if patient has adverse effects, or no PRN used in previous 3 hours hydrOXYzine HCl (ATARAX) tablet 25 mg 25 mg, Oral, 3 TIMES DAILY NEEDED, Starting on Tue10/24/24 at 2007, Until Tue10/30/24 at 124, Anxiety Insulin lispro (HUMALOG) injection(Linked Group 2) Subcutaneous, NEEDED, Starting on Tue10/19/24 at 0824, Until Tue10/30/24 at 124, Other, As needed for snacks, Insulin to carb ratio: 1 unit insulin = 6 grams carbs Correction Factor: not to be used with this order. Kwikpen: Prime pen before each injection; refer to Pen Priming and Care Handout for further details. Warning! Confirm patient. Insulin pen is for labeled individual patient use ONLY. Ipratropium-albuterol (DUONEB) 0.5-2.5 (3) MG/3ML nebulizer solution 3 mL 3 mL, Nebulization, EVERY 6 HOURS NEEDED, Starting on Tue10/17/24 at 1150, Until Tue10/30/24 at 1241, Cough, Breathing Treatment Labetalol (NORMODYNE) injection 10 mg(Linked Group 4) 10 mg, Intravenous, EVERY 1 HOUR NEEDED, Starting on Tue10/16/24 at 2243, Until Tue10/30/24 at 1241, See admininstration instructions, Use as initial dose for Systolic Blood Pressure GREATER than 160 mmHg and Heart Rate GREATER than 60 beats per minute. Higher dose may be administered if lower dose was previously documented as ineffective 10 minutes after administration and did not result in adverse effects (HR<60) For vials: labetalol should be treated as a SINGLE USE VIAL. Discard remaining contents after one use. Labetalol (NORMODYNE) injection 20 mg(Linked Group 4) 20 mg, Intravenous, EVERY 1 HOUR NEEDED, Starting on Tue10/16/24 at 2243, Until Tue10/30/24 at 1241, See administration instructions, For Systolic Blood Pressure GREATER than 160 mmHg and if Heart Rate GREATER than 60 beats per minute. Higher dose may be administered if lower dose was previously documented as ineffective 10 minutes after administration and did not result in adverse effects (HR<60). Decrease back to lower dose if patient has adverse effects, or no PRN used in previous 3 hours For vials: labetalol should be treated as a SINGLE USE VIAL. Discard remaining contents after one use. magnesium oxide (MAG-OX) tablet 800 mg(Linked Group 5) 800 mg, Oral, ADMINISTER DIRECTED, Starting on Tue10/22/24 at 1426, Until Tue10/30/24 at 1241, See admin instructions, Medicine Electrolyte Replacement Protocol, EXCLUDE: Dialysis Patients, those with CrCl less than 30 mL/min, weight less than 50 kg; or for history of renal transplant. Administer for magnesium level of 1.6-1.9 mg/dL. Draw magnesium level with next day morning labs. magnesium oxide (MAG-OX) tablet 800 mg(Linked Group 5) 800 mg, Per NG tube, ADMINISTER DIRECTED, Starting on Tue10/22/24 at 1426, Until Tue10/30/24 at 1241, See admin instructions, Medicine Electrolyte Replacement Protocol, EXCLUDE Dialysis Patients, those with CrCl less than 30 mL/min, weight less than 50 kg; or for history of renal transplant. Administer for magnesium level of 1.6-1.9 mg/dL. Draw magnesium level with next day morning labs. Magnesium sulfate 4 g in sterile water 50 ml premix IVPB(Linked Group 5) 4 g, Intravenous, Administer over 4 Hours, ADMINISTER DIRECTED, Starting on Tue10/22/24 at 1426, Until Tue10/30/24 at 1241, Other, Medicine Electrolyte Replacement Protocol, EXCLUDE Dialysis Patients, those with CrCl less than 30 mL/min, weight less than 50 kg; or for history of renal transplant. Administer for Magnesium level less than or equal to 1.5 mg/dL. Repeat Magnesium level eight (8) hours after each infusion if most recent magnesium level is less than 1.3 mg/dL. Draw with next day morning labs after replacements for previous magnesium levels between 1.3-1.9 mg/dL. Potassium Bicarb-Citric Acid (Effer-K) 20 MEQ effervescent tablets for oral solution 40-60 mEq(Linked Group 6) 40-60 mEq, Per NG tube, ADMINISTER DIRECTED, Starting on Tue10/22/24 at 1426, Until Tue10/30/24 at 1241, Other, Medicine Electrolyte Replacement Protocol - Non-Cardiology Replacement - see administration instructions, Do not swallow whole. Dissolve completely in 3-4 ounces of water or cold juice before drinking. If administering via J tube, dilute in sterile water, wait for tablet to stop fizzing, swirl the solution and draw into a syringe suitable for attaching to the tube. After administration, flush tube with 15-30 ml water. EXCLUDE: Dialysis Patients, those with CrCl less than 30 mL/min, weight less than 50 kg; or for history of renal transplant. Review magnesium level and administer magnesium prior to potassium replacement if indicated. For potassium level 3 - 3.5 mmol/L administer 40 mEq. Recheck potassium level with morning labs next day. For potassium level less than 3 mmol/L administer 60 mEq. Recheck potassium level 8 hours after dose administered. Potassium chloride (K-DUR) tablet ER 40-60 mEq(Linked Group 6) 40-60 mEq, Oral, ADMINISTER DIRECTED, Starting on Tue10/22/24 at 1426, Until Tue10/30/24 at 1241, See admin instructions, Medicine Electrolyte Replacement Protocol - Non-Cardiology Replacement, -Swallow tablets whole; do not crush, chew, or suck on tablet. Tablet may also be broken in half and each half swallowed separately.- EXCLUDE: Dialysis Patients, those with CrCl less than 30 mL/min, weight less than 50 kg; or for history of renal transplant. Review magnesium level and administer magnesium prior to potassium replacement if indicated. For potassium level 3 - 3.5 mmol/L administer 40 mEq. Recheck potassium level with morning labs next day. For potassium level less than 3 mmol/L administer 60 mEq. Recheck potassium level 8 hours after dose administered. Sodium chloride 0.9% IV solution 250 mL Intravenous, at 20 mL/hr, NEEDED, Starting on Tue10/16/24 at 2243, Until Tue10/30/24 at 1241, Carrier Fluid - See Admin. Inst, 250mL 0.9NS to be used as carrier fluid for intermittent small volume or piggyback medication administration as needed. Infusion rate of the carrier fluid should be set at 20 mL/hr unless the rate as the intermittent medication is less than 20 mL/hr. For intermittent medications with a rate less than 20 mL/hr set the carrier fluid at that rate of the intermittent or piggy back medication. 1325 ($$New Bag$$ - Provider: Aixa Arvizu RN)1725 (Rate/Dose Verify - Provider: Aixa Arvizu RN) Linked Groups Order Group 1: insulin glargine-yfgn (SEMGLEE) injection 28 UnitsJump to med 28 Units, Subcutaneous, EVERY 24 HOURS, First dose (after last modification) on Tue10/19/24 at 1200, Until Discontinued, Do not mix in syringe with other insulins. And NOTIFY PHYSICIAN, OTHER (CANCELED) Routine, CONTINUOUS, Starting on Tue10/19/24 at 0825, Until Specified, Who to Notify: [facility], Call [facility] if a.m. Glucose is less than 80 and dose reduction not already ordered. Group 2: Insulin lispro (HUMALOG) injectionJump to med Subcutaneous, 4 TIMES DAILY WITH MEALS & AT BEDTIME, First dose on Tue10/19/24 at 0830, Until Discontinued, Insulin to carb ratio: Non-Standard: 1 unit insulin = 6 grams carbs every meal and at bedtime Correction Factor: 151-175 = 1 unit; 176- 200 = 2 units; 201-225 = 3 units; 226-250 = 4 units; 251-275 = 5 units; 276-300 = 6 units; 301-325 = 7 units; 326-350 = 8 units; Kwikpen: Prime pen before each injection; refer to Pen Priming and Care Handout for further details. Warning! Confirm patient. Insulin pen is for labeled individual patient use ONLY. And Insulin lispro (HUMALOG) injectionJump to med Subcutaneous, NEEDED, Starting on Tue10/19/24 at 0824, Until Tue10/30/24 at 1241, Other, As needed for snacks, Insulin to carb ratio: 1 unit insulin = 6 grams carbs Correction Factor: not to be used with this order. Kwikpen: Prime pen before each injection; refer to Pen Priming and Care Handout for further details. Warning! Confirm patient. Insulin pen is for labeled individual patient use ONLY. And BLOOD GLUCOSE (POC DEVICE) (CANCELED) Routine, 4 TIMES DAILY BEFORE MEALS & AT BEDTIME, First occurrence on Tue10/19/24 at 1030, If any Blood Glucose (POC) is greater than 300mg/dl, then repeat Blood Glucose (POC) in 2 hours. If the initial blood glucose was greater than 300mg/dl and if second blood glucose is greater than 200md/dl, then notify [facility]. And BLOOD GLUCOSE (POC DEVICE) (CANCELED) Routine, DIRECTED, Starting on Tue10/19/24 at 0824, Until Specified, For all Blood Glucose LESS THAN 80 mg/dL, treat per Hypoglycemia in Non- Adults Clinical Practice Guideline (CPG) and recheck glucose 15 min after treatment. Repeat per CPG until glucose GREATER THAN 80 mg/dL. Once glucose IS GREATER THAN 80 mg/dL, recheck Blood Glucose every 1 hour x2, then resume as previously ordered. For Blood Glucose LESS THAN 80 mg/dL on admission OR LESS than 45 mg/dL at any time, obtain POC Blood Glucose every 4 hours for 6 occurrences AFTER treating per CPG. Obtain blood glucose for symptoms of hypoglycemia: sweating, shaking, fatigue, rapid pulse, slow thinking & dizziness. Notify physician w/results. Obtain blood glucose for symptoms of hyperglycemia: excessive thirst, blurred vision, excessive urination & tiredness. Notify physician w/results. If patient NPO, obtain POC Blood Glucose prior to administration of any insulin products. And COMMUNICATION ORDER FOR NURSING CARE: For Blood Glucose LESS THAN 80 mg/dl (CANCELED) Routine, CONTINUOUS, Starting on Tue10/19/24 at 0825, Until Specified, For Blood Glucose LESS THAN 80 mg/dl follow Hypoglycemia in Non- Adults Clinical Practice Guideline (CPG) And Dextrose 50% injection 7.5-25 gJump to med 7.5-25 g, Intravenous, ADMINISTER DIRECTED, Starting on Tue10/19/24 at 0824, Until Tue10/30/24 at 1241, Blood glucose <80 mg/dL, For patients who are not alert, are NPO, or are on IV insulin infusion administer as directed per Hypoglycemia in Non- Adults Clinical Practice Guideline. For Blood Glucose: 60-79 mg/dL administer 7.5 gm (15ml); 45-59 mg/dL administer 12.5 gm (25ml); less than 45mg/dL administer 25gm (50ml). ++ If additional dextrose 50% needed, contact pharmacy or obtain from [facility] cart ++ And glucose (GLUTOSE) 40 % oral gel 1-2 TubeJump to med 1-2 Tube, Oral, ADMINISTER DIRECTED, Starting on Tue10/19/24 at 0824, Until Tue10/30/24 at 1241, Blood glucose <80 mg/dL, For patients who are alert, able to tolerate PO intake and with intact cognitive status administer as directed per Hypoglycemia in Non- Adults Clinical Practice Guideline. For Blood Glucose: 60-79 mg/dL administer 1 tube; 45-59 mg/dl administer 1.5 tubes; less than 45 mg/dL administer 2 tubes. Each tube of 37.5g delivers 15g of carbohydrate. And NOTIFY PHYSICIAN, Blood Glucose LESS THAN 80 mg/dl (CANCELED) Routine, CONTINUOUS, Starting on Tue10/19/24 at 0825, Until Specified, Who to Notify: [facility], For all Blood Glucose LESS THAN 80 mg/dl, notify [facility] after treatment per Hypoglycemia in Non- Adults Clinical Practice Guideline And Carbohydrate counts with meals (CANCELED) Routine, CONTINUOUS, Starting on Tue10/19/24 at 0825, Until Specified, Carbohydrate counts are to be done after each patient meal and with snack. Group 3: hydrALAZINE (APRESOLINE) injection 10 mgJump to med 10 mg, Intravenous, EVERY 1 HOUR NEEDED, Starting on Tue10/16/24 at 2243, Until Tue10/30/24 at 1241, See administration instructions, Use as initial dose for Systolic Blood Pressure GREATER than 160 mmHg and Heart rate LESS than 60 beats per minute. Higher dose may be administered if lower dose was previously documented as ineffective 10 minutes after administration and did not result in adverse effects (HR>90) Or hydrALAZINE (APRESOLINE) injection 20 mgJump to med 20 mg, Intravenous, EVERY 1 HOUR NEEDED, Starting on Tue10/16/24 at 2243, Until Tue10/30/24 at 1241, See administration instructions, Higher dose may be administered for Systolic Blood Pressure GREATER than 160 mmHg and Heart rate LESS than 60 beats per minute if lower dose was previously documented as ineffective 10 minutes after administration and did not result in adverse effects (HR>90). Decrease back to lower dose if patient has adverse effects, or no PRN used in previous 3 hours Group 4: Labetalol (NORMODYNE) injection 10 mgJump to med 10 mg, Intravenous, EVERY 1 HOUR NEEDED, Starting on Tue10/16/24 at 2243, Until Tue10/30/24 at 1241, See admininstration instructions, Use as initial dose for Systolic Blood Pressure GREATER than 160 mmHg and Heart Rate GREATER than 60 beats per minute. Higher dose may be administered if lower dose was previously documented as ineffective 10 minutes after administration and did not result in adverse effects (HR<60) For vials: labetalol should be treated as a SINGLE USE VIAL. Discard remaining contents after one use. Or Labetalol (NORMODYNE) injection 20 mgJump to med 20 mg, Intravenous, EVERY 1 HOUR NEEDED, Starting on Tue10/16/24 at 2243, Until Tue10/30/24 at 1241, See administration instructions, For Systolic Blood Pressure GREATER than 160 mmHg and if Heart Rate GREATER than 60 beats per minute. Higher dose may be administered if lower dose was previously documented as ineffective 10 minutes after administration and did not result in adverse effects (HR<60). Decrease back to lower dose if patient has adverse effects, or no PRN used in previous 3 hours For vials: labetalol should be treated as a SINGLE USE VIAL. Discard remaining contents after one use. Group 5: magnesium oxide (MAG-OX) tablet 800 mgJump to med 800 mg, Oral, ADMINISTER DIRECTED, Starting on Tue10/22/24 at 1426, Until Tue10/30/24 at 1241, See admin instructions, Medicine Electrolyte Replacement Protocol, EXCLUDE: Dialysis Patients, those with CrCl less than 30 mL/min, weight less than 50 kg; or for history of renal transplant. Administer for magnesium level of 1.6- 1.9 mg/dL. Draw magnesium level with next day morning labs. Or magnesium oxide (MAG-OX) tablet 800 mgJump to med 800 mg, Per NG tube, ADMINISTER DIRECTED, Starting on Tue10/22/24 at 1426, Until Tue10/30/24 at 1241, See admin instructions, Medicine Electrolyte Replacement Protocol, EXCLUDE Dialysis Patients, those with CrCl less than 30 mL/min, weight less than 50 kg; or for history of renal transplant. Administer for magnesium level of 1.6-1.9 mg/dL. Draw magnesium level with next day morning labs. Or Magnesium sulfate 4 g in sterile water 50 ml premix IVPBJump to med 4 g, Intravenous, Administer over 4 Hours, ADMINISTER DIRECTED, Starting on Tue10/22/24 at 1426, Until Tue10/30/24 at 1241, Other, Medicine Electrolyte Replacement Protocol, EXCLUDE Dialysis Patients, those with CrCl less than 30 mL/min, weight less than 50 kg; or for history of renal transplant. Administer for Magnesium level less than or equal to 1.5 mg/dL. Repeat Magnesium level eight (8) hours after each infusion if most recent magnesium level is less than 1.3 mg/dL. Draw with next day morning labs after replacements for previous magnesium levels between 1.3-1.9 mg/dL. Group 6: Potassium chloride (K-DUR) tablet ER 40-60 mEqJump to med 40-60 mEq, Oral, ADMINISTER DIRECTED, Starting on Tue10/22/24 at 1426, Until Tue10/30/24 at 1241, See admin instructions, Medicine Electrolyte Replacement Protocol - Non-Cardiology Replacement, -Swallow tablets whole; do not crush, chew, or suck on tablet. Tablet may also be broken in half and each half swallowed separately.- EXCLUDE: Dialysis Patients, those with CrCl less than 30 mL/min, weight less than 50 kg; or for history of renal transplant. Review magnesium level and administer magnesium prior to potassium replacement if indicated. For potassium level 3 - 3.5 mmol/L administer 40 mEq. Recheck potassium level with morning labs next day. For potassium level less than 3 mmol/L administer 60 mEq. Recheck potassium level 8 hours after dose administered. Or Potassium Bicarb-Citric Acid (Effer-K) 20 MEQ effervescent tablets for oral solution 40-60 mEqJump to med 40-60 mEq, Per NG tube, ADMINISTER DIRECTED, Starting on 10/22/24 at 1426, Until Tue10/30/24 at 1241, Other, Medicine Electrolyte Replacement Protocol - Non-Cardiology Replacement - see administration instructions, Do not swallow whole. Dissolve completely in 3-4 ounces of water or cold juice before drinking. If administering via J tube, dilute in sterile water, wait for tablet to stop fizzing, swirl the solution and draw into a syringe suitable for attaching to the tube. After administration, flush tube with 15-30 ml water. EXCLUDE: Dialysis Patients, those with CrCl less than 30 mL/min, weight less than 50 kg; or for history of renal transplant. Review magnesium level and administer magnesium prior to potassium replacement if indicated. For potassium level 3 - 3.5 mmol/L administer 40 mEq. Recheck potassium level with morning labs next day. For potassium level less than 3 mmol/L administer 60 mEq. Recheck potassium level 8 hours after dose administered. FOR RECORDS PERTAINING TO PATIENTS WHO ARE OR HAVE BEEN ENROLLED IN A CHEMICAL DEPENDENCY/SUBSTANCEABUSE PROGRAM, SOME INFORMATION MAY BE OMITTED. This clinical summary was aggregated from multiple sources. Caution should be exercised in using it in the provision of clinical care. This summary normalizes information from multiple sources, and as a consequence, information in this document may materially change the coding, format and clinical context of patient data. In addition, data may be omitted in some cases. CLINICAL DECISIONS SHOULD BE BASED ON THE PRIMARY CLINICAL RECORDS. [employer] provides no warranty or guarantee of the accuracy or completeness of information in this document.
[2024-12-18 11:32] LABS: Hematocrit 33.7 % (40-54); Hemoglobin 10.9 g/dL (13.0-16.5); Immature Granulocytes Count 0.010 X10^3/uL (0.0-0.0); Mean Corp Hgb Conc 32.3 g/dL (32-36); Mean Corpuscular Volume 83.0 fL (80-94); Mean Platelet Vol. 11.0 fl (6.2-12.0); NRBC Flagged by Analyzer 0 % (0-5); Platelet Count 189 K/mm3 (150-450); RBC Distribution Width CV 15.8 % (11.6-14.6); RBC Distribution Width SD 46.4 fl (35.1-43.9); Red Blood Count 4.06 M/mm3 (4.6-6.2); White Blood Count 7.5 K/mm3 (4.4-11.0)
[2024-12-18 11:52] LABS: Anion Gap 12 (5-15); BUN 28 mg/dL (4-19); BUN/Creat Ratio 30.2 RATIO (10-20); CRP 13.50 mg/L (0.0-3.0); Calcium,Total 9.3 mg/dL (7.6-11.0); Carbon Dioxide 29.0 mmol/L (21.0-32.0); Chloride 101 mmol/L (98-108); Glucose 132 mg/dL (70-99); Potassium 3.9 mmol/L (3.3-5.1)
== END ==
LOC: OLS.SW 04:00
PROVIDERS: PCP Family Medicine; Referring Provider Internal Medicine; Visit Provider Internal Medicine
DX: E11.9 Type 2 diabetes mellitus without complications (principal)
CPT/HCPCS: 36415; 80048; 85025; 86140

== ENCOUNTER → 2025-01-01 | Outpatient (REF) | payer MEDICARE, OTHER, SELFPAY ==
--- OUTSIDE RECORDS SUMMARY | 2025-01-01 03:55 | XMS RPT_ITS | CCD ---
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 Bernabe Reese Primary Care Provider Dr. Bernabe Reese Referring Provider 1([facility])[phone] Dr. Gregorio Graham Attending Provider [phone] Abdulaziz SKIN THERAPIST, SKIN THERAPIST-C Amelie Attending Provider D[place]an [place] MD Primary Care Provider Dr. Bernabe Reese Primary Care Provider 1([facility] )[phone] Dr. Bernabe Reese Referring Provider 1([facility])[phone] [facility] SKIN THERAPIST, SKIN THERAPIST-C Bernabe Madison Attending Provider 1([facility])[phone] Dr. Jerrod Mast Attending Provider Dr. Gui Bailey Emergency Provider Dr. Hilda Zimmerman Admit Provider Dr. Hilda Zimmerman Attending Provider Dr. Hilda Zimmerman Other Provider Dr. Gregorio Mccarthy Other Provider Dr. Lawrence Rodriguez Attending Provider Dr. Bernabe Reese Primary Care Provider 1([facility] )[phone] Dr. Bernabe Reese Referring Provider 1([facility])[phone] Dr. Sylvester Thomas Attending Provider Dr. Bernabe Reese Primary Care Provider Dr. Bernabe Reese Referring Provider Dr. Sylvester Thomas Attending Provider Dr. Edward Luevano Emergency Provider Dr. Haily Javier Admit Provider [phone] Haily Javier Other Provider [phone] Julee Spain Attending Provider Dr. Julee Spain Other Provider Dr. Albert Root Other Provider Dr. Gregorio Mccarthy Other Provider Dr. Bernabe Reese Primary Care Provider Dr. Edward Luevano Emergency Provider 1([facility])[phone] Haily Javier Admit Provider [phone] Haily Javier Other Provider [phone] Julee Spain Attending Provider Dr. Julee Spain Other Provider Dr. Albert Root Other Provider Dr. Gregorio Mccarthy Other Provider [phone] Bernabe Reese Referring Provider Dr. Rocky Edwards Attending Provider Mary Ann STERLING, Dr. Bernabe Mejias Primary Care Provider Dr. Bernabe Reese MD Attending Provider Dr. Bernabe Reese MD Referring Provider Radha DPM, Dr. Navarro Attending Provider Radha KEMPM, Dr. Navarro Referring Provider Ivett KEMPM, Dr. Price Referring Provider Ivett DPM, Dr. Price Referring Provider [phone] Chau MARLEY, Dr. Ford Emergency Provider Tulio STERLING, Dr. Quiros Admit Provider Tulio STERLING, Dr. Quiros Attending Provider PROVIDER, UNKNOWN Attending Unavailable PROVIDER, UNKNOWN Admitting Unavailable Bernabe Reese MD Primary Care Provider DILLAN GUZMAN Admitting Unavailable CONSULT, SURGERY - NEURO Consulting Unavail able ELIZABETH AGOSTO Attending Unavailable HAILY JAVIER Referring Unavailable Dr. Bernabe Reese MD Primary Care Provider Dr. Bernabe Reese MD Attending Provider Dr. Bernabe Reese MD Referring Provider Tulio STERLING, Dr. Quiros Other Provider Dr. Haily Javier DO Attending Provider Deborah MARLEY, Dr. Preciado Other Provider Daniel Dominique MD Other Provider Unavailable Nevaeh STERLING, Dr. Mullins Other Provider [phone] Elizabeth Agosto MD Other Provider Unavailable Dr. Najma Butler DO Other Provider Teresa STERLING, Dr. Jiménez Other Provider Dr. Silas Sanchez MD Other Provider Dr. Laura Flores MD Other Provider Dr. Dillan Guzman MD Other Provider [phone] Dr. Jing Joshi MD Other Provider Abdoul STERLING, Dr. Wood Other Provider Helga Loo MD Other Provider Lexie STERLING, Dr. Hamm Other [...] Shari STERLING, Dr. Perkins Other Provider Ivett KEMPM, Dr. Price Other Provider Deborah MARLEY, Dr. Preciado Attending Provider Chapo STERLING, Dr. Benton Attending Provider Rima STERLING, Dr. Singh Referring Provider Danielle MARLEY, Dr. Long Other Provider Naomi STERLING, Dr. Pereira Attending Provider Klever Reese MD, Dr. Bernabe Mejias Primary Care Provider Naomi STERLING, Dr. Pereira Referring Provider Klever Salgado MD, Dr. Pereira Attending Provider Klever Salgado MD, Dr. Pereira Referring Provider Klever Reese MD, Dr. Bernabe Mejias Primary Care Provider Radha DPM, Dr. Navarro Attending Provider Radha KEMPM, Dr. Navarro Referring Provider Ivett KEMPM, Dr. Price Referring Provider Chau MARLEY, Dr. Ford Emergency Provider [phone] Tulio STERLING, Dr. Quiros Admit Provider Tulio STERLING, Dr. Quiros Other Provider Dr. Haily Javier DO Attending Provider eDborah MARLEY, Dr. Preciado Other Provider Trip STERLING, Daniel Other Provider Unavailable Nevaeh STERLING, Dr. Mullins Other Provider [phone] Triny STERLING, Elizabeth Other Provider Unavailable Luke MARLEY, Dr. Yao Other Provider [phone] Teresa STERLING, Dr. Jiménez Other Provider Daniel STERLING, Dr. Rosen Other Provider Mark STERLING, Dr. Sanchez Other Provider Thomas STERLING, Dr. Grimaldo Other Provider Adi STERLING, Dr. Sr Other Provider Abdoul [...] Dr. Kirkland Other Provider Unavailable Cody STERLING, Yousejose Other Provider Unavailable Shari STERLING, Dr. Perkins Other Provider Ivett CIFUENTES, Dr. Price Other Provider Dr. Ozzy Cabrera DO Attending Provider Chapo STERLING, Dr. Benton Attending Provider Rima STERLING, Dr. Singh Referring Provider Dr. Haily Javier DO Other Provider Naomi STERLNIG, Dr. Pereira Attending Provider Klever Salgado MD, Dr. Pereira Referring Provider Klever Salgado MD, Dr. Pereira Attending Provider Klever Salgado MD, Dr. Pereira Referring Provider Klever Cavazos MD, Dr. Canelo Pizarro Attending Provider Bernabe Reese E Referring Unavailable Schinner, Bernabe E Attending Unavailable Schinner, Bernabe E Primary Care Unavailable Schinner, Bernabe E Primary Care Unavailable Ramon Garcia Attending Unavailable Schinner, Bernabe E Primary Care Unavailable SchinBernabe subramanian E Attending Unavailable Schinner, Bernabe E Primary Care Unavailable Naomi Kelli Attending Unavailable Paulettea, Kelli Referring Unavailable Ramon Garcia Attending Unavailable Ramon Garcia Referring Unavailable Schinner, Bernabe E Primary Care Unavailable Schinner, Bernabe E Primary Care Unavailable Albert Root Referring Unavailable Canelo Cavazos Attending Unavailable Schinmarilynn, Bernabe E Primary Care Unavailable Haily Javier Attending Unavailable Chula Antunez Consulting Unavailable Chula Antunez Admitting Unavailable Ozzy Cabrera Consulting Unavailable Daniel Dominique Consulting Unavailable Harpreet Herring Consulting Unavailable Elizabeth Agosto Consulting Unavailable Najma Butler Consulting Unavailable Jessy Moore Consulting Unavailable Silas Sanchez Consulting Unavailable Laura Flores Consulting Unavailable Dillan Guzman Consulting Unavailable Jing Joshi Consulting Unavailable Israel Schreiber Consulting Unavailable Helga Loo Consulting Unavailable Hansel Owen Consulting Unavailable Janay Sevilla Consulting Unavailable Ada Mena Consulting Unavailable Aishwarya Giordano Consulting UnavailTonio Ureña Consulting Unavailable Rakesh Morris Consulting Unavailable James Garcia Consulting Unavailable Marita Spain Consulting Unavailable Christine Ross Consulting Unavailable Gregorio Mccarthy Consulting Unavailable Albert Root Consulting Unavailable Mary Ann, Bernabe E Primary Care Unavailable Gudla Kelli LUNA Attending Unavailable Schinner, Bernabe E Primary Care Unavailable Schinmarilynn, Bernabe E Referring Unavailable SchBernabe mac E Attending Unavailable Mary Ann, Bernabe E Primary Care Unavailable Albert Root Referring Unavailable Ramon Garcia Attending Unavailable Mary Ann, Bernabe E Primary Care Unavailable Gudla CHERYL, Kelli Attending Unavailable Schinmarilynn, Bernabe E Primary Care Unavailable Gudla Kelli LUNA Attending Unavailable Schbubba, Bernabe E Primary Care Unavailable Gudaya CHERYL Kelli Referring Unavailable Njdla Kelli LUNA Attending Unavailable Schinmarilynn, Bernabe E Primary Care Unavailable Gudla Kelli LUNA Attending Unavailable Schinner, Bernabe E Primary Care Unavailable Kelli Morris Attending Unavailable Schinner, Bernabe E Primary Care Unavailable Kelli Morris Attending Unavailable Albert Root Referring Unavailable Ramon Garcia Attending Unavailable Schinner, Bernabe E Primary Care Unavailable Schinner, Bernabe E Primary Care Unavailable Albert Root Consulting Unavailable Chula Antunez Admitting Unavailable Ozzy Cabrera Attending Unavailable Chula Antunez Consulting Unavailable Ozzy Cabrera Consulting Unavailable Gregorio Mccarthy Consulting Unavailable Schinner, Bernabe E Primary Care Unavailable Albert Root Referring Unavailable Canelo Cavazos Attending Unavailable Ramon Garcia Attending Unavailable Ramon Garcia Referring Unavailable Schinner, Bernabe E Primary Care Unavailable Haily Javier Attending Unavailable Haily Javier Consulting Unavailable Chula Antunez Attending Unavailable Schinner, Bernabe E Primary Care Unavailable Jessica Baez Attending Unavail able Schinner, Bernabe E Primary Care Unavailable Francisco Abarca Referring Unavailable Chetan Cowan Attending Unavailable Schinner, Benrabe E Primary Care Unavailable Bernabe Angel NP Attending Unavailable Schinner, Bernabe E Referring Unavailable Schinner, Bernabe E Attending Unavailable Schinner, Bernabe E Primary Care Unavailable Allergies Allergy Classification Reported Allergen(s) Allergy Type Date of Onset Reaction(s) Facility (19 sources) ampicillin; Translations: [AMPICILLIN] Drug Allergy 7 Hives [facility] Repository (20 sources) Penicillins; Translations: [PENICILLINS] Propensity to adverse reactions to drug (disorder) 7 Unknown [facility] Repository (16 sources) peanut allergenic extract Drug Allergy 1 Other, NEEDS FOLLOW-UP [facility] Comment on above: PEANUT BUTTER (3 sources) Peanut butter Allergy to substance 1 Other [facility] Work Phone: (1 source) peanut allergenic extract Drug Allergy 5 [facility] Repository Medications Current Medications Medication Drug Class(es) Dates Sig (Normalized) Sig (Original) acetaminophen 325 mg oral tablet (17 sources) Start: 10-16-2024 Start: 07-11-2023 End: 10-16-2024 Start: 12-03-2020 take 500 mg by mouth every six hours Acetaminophen Active 500 MG PO EVERY 6 HOURS December 03, 2020 12:00am take 2 tablets by mo [facility] every eight hours as needed acetaminophen (TYLENOL EXTRA STRENGTH) 500 mg tablet Take 1,000 mg by mouth every 8 hours as needed. 0 Active Comment on above: Take 1,000 mg by maria g every 8 hours as needed. amLODIPine 10 [...] 10-01-2020 take 1 tablet by maria g once daily Calcium Carbonate-Mag Oxide Active 1 [...] on above: 1 tablet twice daily . Zbwldljx-Akt-Ta-Lycopen -Lutein (7 sources) Start: 10-01-2020 take 1 tablet by mouth once daily Fffemxrh-Syi-Vr -Lycopen-Lutein Active 1 TABLET PO DAILY October 01, 2020 7:30pm Start: 10-01-2020 take 1 tablet by maria g th once daily Awsjywci-Yjz-Gp-Lycopen-Lutein Active 1 TABLET PO DAILY September 30, 2020 11:00pm Start: 10-01-2020 take 1 tablet by maria g th once daily Cgjxffej-Rbh-Ul-Lycopen-Lutein Active 1 TABLET PO DAILY October 01, 2020 12:00am Cb-Eem-Oxfyc-T6-Afytvba-Thzx in (3 sources) Start: 10-01-2020 take 1 tablet by mouth once daily Fw-Qka-Fgiut-M7-Khbkcoc-Rvrngb Active 1 TABLET PO DAILY September 30, 2020 11:00pm Start: 10-01-2020 take 1 tablet by maria g th once daily Gb-Bjm-Pscwu-U2-Akbangf-Chlijr Active 1 TABLET PO DAILY October 01, 2020 12:00am Os-Sjn-Rcyit-V1-Pplwmju-Kjdv in 1 EACH tablet (5 sources) Start: 10-01-2020 take 1 tablet by mouth once daily As-Gxc-Vvvfo-B0-Ojmwtqq-Cosgse 1 EACH tablet Active 1 {tbl} PO [...] Osmotic Laxative Start: 10-18-2024 End: 10-30-2024 sennosides, care home 8.6 mg oral tablet (3 sources) Start: [...] 2024 Start: 12-03-2020 take 1 tablet by once daily Metoprolol Succinate (Toprol Xl) 100 [...] Channel Rosie Start: 10-16-2024 End: 10-17-2024 nystatin [id number] unt/ml / triamcinolone acetonide 1 mg/ml topical [...] at 0825, Until Specified, Who to Notify: Knowledge Architect, Call Knowledge Architect if a.m. Glucose is less than 80 [...] glucose is greater than 200md/dl, then notify Knowledge Architect. [Order 3 End] [Order 4 Start] Name: [...] 50% needed, contact pharmacy or obtain from [employer] cart ++ [Order 6 End] [Order 7 [...] at 0825, Until Specified, Who to Notify: Knowledge Architect, For all Blood Glucose LESS THAN 80 mg/dl, notify Knowledge Architect after treatment per Hypoglycemia in Non- Adults [...] unspecified; Translations: [Iron deficiency anemia, unspecified] Onset: 12-18-2024 Episodic Diabetes mellitus with complications (20 sources) [...] metabolism (20 sources) Hyperlipidemia; Translations: [Hyperlipidemia, unspecified] Onset: 12-25-2024 Chronic E Codes: Fall (11 sources) Fall; Translations: [Unspecified fall, initial encounter] 11-28-2022 Episodic Essential hypertension (20 sources) Essential hypertension; Translations: [Essential (primary) hypertension] Onset: 12-25-2024 Chronic Fluid and electrolyte disorders (4 sources) [...] Translations: [Chest pain, unspecified] 09-27-2022 Episodic Osteoarthritis (11 sources) Osteoarthritis of left knee joint; Translations: [Unilateral primary osteoarthritis, left knee] Onset: 12-25-2024 11-28-2022 Chronic Other aftercare (20 sources) Long-term current use of anticoagulant; Translations: [[facility] (current) use of anticoagulants] 11-28-2022 Episodic Other aftercare (2 sources) 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; Translations: [Long-term (current) use of anticoagulants] Onset: 12-25-2024 12-03-2022 Episodic Other aftercare (1 source) Taking high risk medication; Translations: [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] 10-22-2024 Episodic Other aftercare (3 sources) [facility] (current) use of insulin; Translations: [[facility] (current) use of insulin] Onset: 10-16-2024 Episodic Other aftercare (2 sources) 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; Translations: [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] Onset: 10-16-2024 Episodic Other aftercare (4 sources) Follow-up orthopedic assessment; Translations: [Encounter for other orthopedic aftercare] 12-04-2024 Episodic Other aftercare (2 sources) Encounter for other orthopedic aftercare; Translations: [Encounter for other orthopedic aftercare] Onset: 12-18-2024 Episodic Other bone disease and musculoskeletal deformities (6 sources) Acquired absence of other left toe(s); Translations: [History of partial ray amputation of fifth toe of left foot] 12-16-2020 Episodic Other bone disease and musculoskeletal deformities (1 source) Acquired absence of other toe(s), unspecified side; Translations: [Acquired absence of other toe(s), unspecified side] Onset: 12-25-2024 Episodic Other circulatory disease (10 sources) Peripheral vascular disease; Translations: [Other specified peripheral vascular diseases] 09-25-2024 Chronic Other circulatory disease (2 sources) Other specified peripheral vascular diseases; Translations: [Other specified peripheral vascular diseases] Onset: 12-18-2024 Chronic Other circulatory disease (2 sources) Personal history of other diseases of the circulatory system; Translations: [Personal history of other diseases of the circulatory system] Onset: 02-10-2018 Episodic Other diseases of veins and lymphatics (8 sources) Peripheral venous insufficiency; Translations: [Venous insufficiency (chronic) (peripheral)] 05-23-2023 Episodic Other diseases of veins and lymphatics (3 sources) Venous insufficiency (chronic) (peripheral); Translations: [Venous (peripheral) insufficiency, unspecified] Onset: 12-25-2024 05-23-2023 Episodic Other injuries and conditions due [...] Translations: [Other respiratory abnormalities] 07-11-2023 Episodic Other lower respiratory disease (1 source) Dyspnea, unspecified; Translations: [Dyspnea, unspecified] Onset: 12-25-2024 Episodic Other nervous system disorders (1 source) [...] Chronic Other nutritional; endocrine; and metabolic disorders (4 sources) Morbid (severe) obesity due to excess calories; Translations: [Morbid obesity] Onset: 12-25-2024 05-23-2023 Chronic Other nutritional; endocrine; and metabolic disorders (2 sources) Morbid (severe) obesity with alveolar hypoventilation; Translations: [Obesity hypoventilation syndrome] Onset: 12-25-2024 07-11-2023 Chronic Other nutritional; endocrine; and metabolic disorders (2 sources) Body mass index (BMI) 50.0-59.9, adult; Translations: [Body mass index (BMI) 50.0-59.9, adult] Onset: 10-16-2024 Chronic Other skin disorders (16 sources) Dystrophia unguium; Translations: [Nail dystrophy] 12-07-2020 Episodic Residual codes; unclassified (1 source) Dependence on other enabling machines and devices; Translations: [Dependence on other enabling machines and devices] Onset: 12-25-2024 Chronic Residual codes; unclassified (1 source) Obstructive sleep apnea (adult) (pediatric); Translations: [Obstructive sleep apnea (adult) (pediatric)] Onset: 12-25-2024 Chronic Residual codes; unclassified (16 sources) Bilateral lower limb edema; Translations: [Localized edema] 11-06-2020 Episodic Residual codes; unclassified (10 sources) Acute confusion; Translations: [Disorientation, unspecified] 11-28-2022 Episodic Residual codes; unclassified (1 source) Disorientation, unspecified; Translations: [Delirium due to conditions classified elsewhere] 12-03-2022 Episodic Residual codes; unclassified (1 source) Personal history of other specified conditions; Translations: [Personal history of other specified conditions] Onset: 12-25-2024 Episodic Screening and history of mental health and substance abuse codes (1 source) Personal history of nicotine dependence; Translations: [Personal history of nicotine dependence] Onset: 12-25-2024 Episodic Skin and subcutaneous tissue infections (20 sources) Cellulitis and abscess of lower limb; Translations: [Cellulitis of unspecified part of limb] 12-03-2020 Episodic Thyroid disorders (1 source) Nontoxic single thyroid nodule; Translations: [Nontoxic single thyroid nodule] Onset: 02-28-2024 Chronic Unclassified (5 sources) Localized edema; Translations: [Edema] Onset: 02-10-2018 [...] Test Name Value Interpretation Reference Range Facility Wound Ctr History AND Physic arely 12-21-2024 Wound Ctr History & Physical Normal [facility] Basic Metabolic Profile (BMP )on 12-18-2024 BUN/CRE 30.2 RATIO High 10-20 [facility] Comment on above: Order Comment: .1 Performed By: #### L 501.6710, L500.2500, L100.0100 ####[facility] [address] [place], [address] Calcium [Mass/Vol] 9.3 mg/dL Normal 7.6-11.0 [facility] Comment on above: Order Comment: .1 Performed By: #### L 501.6710, L500.2500, L100.0100 ####[facility] [address] [place], [address] Chloride [Moles/Vol] 101 mmol/L Normal 98-108 [facility] Comment on above: Order Comment: 208.1 Performed By: #### L 501.6710, L500.2500, L100.0100 ####[facility] [address] [place], [address] CO2 [Moles/Vol] 29.0 mmol/L Normal 21.0-32.0 [facility] Comment on above: Order Comment: 208.1 Performed By: #### L 501.6710, L500.2500, L100.0100 ####[facility] [address] [place], [address] Creatinine [Mass/Vol] 0.91 mg/dL Normal 0.70-1.20 [facility] Comment on above: Order Comment: .1 Performed By: #### L 501.6710, L500.2500, L100.0100 ####[facility] [address] [place], [address] GAP 12 Normal 5-15 [facility] Comment on above: Order Comment: .1 Performed By: #### L 501.6710, L500.2500, L100.0100 ####[facility] [address] [place], [address] GFR/1.73 sq M.predicted among non-blacks MDRD (S/P/Bld) [Vol rate/Area] 91 mL/min/{1.73_m2} Normal >60 [facility] Comment on above: Order Comment: .1 Result Comment: mL/m in/1.73m2 CKD-EPI Creatinine Equation (2020) Performed By: #### L 501.6710, L500.2500, L100.0100 ####[facility] [address] [place], [address] Glucose [Mass/Vol] 132 mg/dL High 70-99 [facility] Comment on above: Order Comment: 208.1 Performed By: #### L 501.6710, L500.2500, L100.0100 ####[facility] [address] [place], [address] Potassium [Moles/Vol] 3.9 mmol/L Normal 3.3-5.1 [facility] Comment on above: Order Comment: 208.1 Performed By: #### L 501.6710, L500.2500, L100.0100 ####[facility] [address] [place], [address] Sodium [Moles/Vol] 141 mmol/L Normal 133-145 [facility] Comment on above: Order Comment: 208.1 Performed By: #### L 501.6710, L500.2500, L100.0100 ####[facility] [address] [place], [address] Urea nitrogen [Mass/Vol] 28 mg/dL High 4-19 [facility] Comment on above: Order Comment: 208.1 Performed By: #### L 501.6710, L500.2500, L100.0100 ####[facility] [address] [place], [address] CBC W/Diff, Automatedon 07-0 -2024 Absolute Lymph 2.30 X10 3/uL Normal 0.83-4.51 [facility] Comment on above: Order Comment: 208.1 Performed By: #### L 501.6710, L500.2500, L100.0100 ####[facility] [address] [place], [address] Absolute Neut 4.3 X10 3/uL Normal 2.0-7.7 [facility] Comment on above: Order Comment: 208.1 Performed By: #### L 501.6710, L500.2500, L100.0100 ####[facility] [address] [place], [address] Basophils/100 WBC (Bld) 0.7 % Normal 0-1 [facility] Comment on above: Order Comment: 208.1 Performed By: #### L 501.6710, L500.2500, L100.0100 ####[facility] [address] [place], [address] Eosinophils/100 WBC (Bld) 3.1 % Normal 0-5 [facility] Comment on above: Order Comment: 208.1 Performed By: #### L 501.6710, L500.2500, L100.0100 ####[facility] [address] [place], [address] Erythrocyte distribution width (RBC) [Ratio] 15.8 % High 11.6-14.6 [facility] Comment on above: Order Comment: 208.1 Performed By: #### L 501.6710, L500.2500, L100.0100 ####[facility] [address] [place], [address] Hematocrit (Bld) [Volume fraction] 33.7 % Low 40-54 [facility] Comment on above: Order Comment: 208.1 Performed By: #### L 501.6710, L500.2500, L100.0100 ####[facility] [address] [place], [address] Hemoglobin (Bld) [Mass/Vol] 10.9 g/dL Low 13.0-16.5 [facility] Comment on above: Order Comment: 208.1 Performed By: #### L 501.6710, L500.2500, L100.0100 ####[facility] [address] [place], [address] IG% 0.100 Normal 0.0-0.9 [facility] Comment on above: Order Comment: 208.1 Result Comment: IG% - Immature Granulocytes (promyelocytes, myelocytes andmetamyelocytes) > 1% indicates that a LEFT SHIFT is Present. Performed By: #### L 501.6710, L500.2500, L100.0100 ####[facility] [address] [place], [address] Lymphocytes/100 WBC (Bld) 30.8 % Normal 19-41 [facility] Comment on above: Order Comment: 208.1 Performed By: #### L 501.6710, L500.2500, L100.0100 ####[facility] [address] [place], [address] MCH (RBC) [Entitic mass] 26.8 pg Low 27.0-32.0 [facility] Comment on above: Order Comment: 208.1 Performed By: #### L 501.6710, L500.2500, L100.0100 ####[facility] [address] [place], [address] MCHC (RBC) [Mass/Vol] 32.3 g/dL Normal 32-36 [facility] Comment on above: Order Comment: 208.1 Performed By: #### L 501.6710, L500.2500, L100.0100 ####[facility] [address] [place], [address] MCV (RBC) [Entitic vol] 83.0 fL Normal 80-94 [facility] Comment on above: Order Comment: 208.1 Performed By: #### L 501.6710, L500.2500, L100.0100 ####[facility] [address] [place], [address] Monocytes/100 WBC (Bld) 7.6 % Normal 0-10 [facility] Comment on above: Order Comment: 208.1 Performed By: #### L 501.6710, L500.2500, L100.0100 ####[facility] [address], [address] Neutrophils/100 WBC (Bld) 57.7 % Normal 47-70 [facility] Comment on above: Order Comment: 208.1 Performed By: #### L 501.6710, L500.2500, L100.0100 ####[facility] [address] [place], [address] Nucleated RBC (Bld) [#/Vol] 0 10*3/uL Normal 0-5 [facility] Comment on above: Order Comment: 208.1 Performed By: #### L 501.6710, L500.2500, L100.0100 ####[facility] [address] [place], [address] Platelet mean volume (Bld) [Entitic vol] 11.0 fL Normal 6.2-12.0 [facility] Comment on above: Order Comment: 208.1 Performed By: #### L 501.6710, L500.2500, L100.0100 ####[facility] [address] [place], [address] Platelets (Bld) [#/Vol] 189 10*3/uL Normal 150-450 [facility] Comment on above: Order Comment: 208.1 Performed By: #### L 501.6710, L500.2500, L100.0100 ####[facility] [address] [place], [address] RBC (Bld) [#/Vol] 4.06 10*6/uL Low 4.6-6.2 [facility] Comment on above: Order Comment: 208.1 Performed By: #### L 501.6710, L500.2500, L100.0100 ####[facility] [address] [place], [address] RDW SD 46.4 fl High 35.1-43.9 [facility] Comment on above: Order Comment: 208.1 Performed By: #### L 501.6710, L500.2500, L100.0100 ####[facility] [address] [place], [address] WBC (Bld) [#/Vol] 7.5 10*3/uL Normal 4.4-11.0 [facility] Comment on above: Order Comment: 208.1 Performed By: #### L 501.6710, L500.2500, L100.0100 ####[facility] [address] [place], [address] CRPon 12-18-2024 C-REACTIVE PROT 13.50 mg/L High 0.0-3.0 [facility] Comment on above: Order Comment: 208.1 Performed By: #### L 501.6710, L500.2500, L100.0100 ####[facility] [address] [place], [address] Absolute lymphocyte countOrd ered By: Kelli Salgado on 12-10-2024 Lymphocytes Auto (Unsp spec) [#/Vol] 2.60 10*3/uL 0.83-4.51 [facility] Anion gap in Serum or Plasma Ordered By: Kelli Salgado on 12-10-2024 Anion gap [Moles/Vol] 12 mmol/L 5-15 [facility] Automated lymphocyte count a s percentage of total leukocytesOrdered By: Kelli Salgado on 12-10-2024 Lymphocytes/100 WBC Auto (Unsp spec) 32.9 % 19-41 [facility] BUN/creatinine ratioOrdered By: Kelli Salgado on 12-10-2024 Urea nitrogen/Creatinine [Mass ratio] 33.2 mg/mg High 10- [facility] Basic Metabolic Profile (BMP )on 12-10-2024 BUN/CRE 33.2 RATIO High 04-08 [facility] Comment on above: Order Comment: 208 Performed By: #### L 501.6710, L500.2500, L100.0100 ####[facility] [address] [place], [address] Calcium [Mass/Vol] 9.3 mg/dL Normal 7.6-11.0 [facility] Comment on above: Order Comment: 208 Performed By: #### L 501.6710, L500.2500, L100.0100 ####[facility] [address] [place], [address] Chloride [Moles/Vol] 99 mmol/L Normal 98-108 [facility] Comment on above: Order Comment: 208 Performed By: #### L 501.6710, L500.2500, L100.0100 ####[facility] [address] [place], [address] CO2 [Moles/Vol] 28.2 mmol/L Normal 21.0-32.0 [facility] Comment on above: Order Comment: 208 Performed By: #### L 501.6710, L500.2500, L100.0100 ####[facility] [address] [place], [address] Creatinine [Mass/Vol] 0.89 mg/dL Normal 0.70-1.20 [facility] Comment on above: Order Comment: 208 Performed By: #### L 501.6710, L500.2500, L100.0100 ####[facility] [address] [place], [address] GAP 12 Normal 5-15 [facility] Comment on above: Order Comment: 208 Performed By: #### L 501.6710, L500.2500, L100.0100 ####[facility] [address] [place], [address] GFR/1.73 sq M.predicted among non-blacks MDRD (S/P/Bld) [Vol rate/Area] 92 mL/min/{1.73_m2} Normal >60 [facility] Comment on above: Order Comment: 208 Result Comment: mL/m in/1.73m2 CKD-EPI Creatinine Equation (2020) Performed By: #### L 501.6710, L500.2500, L100.0100 ####[facility] [address] [place], [address] Glucose [Mass/Vol] 147 mg/dL High 70-99 [facility] Comment on above: Order Comment: 208 Performed By: #### L 501.6710, L500.2500, L100.0100 ####[facility] [address] [place], [address] Potassium [Moles/Vol] 4.2 mmol/L Normal 3.3-5.1 [facility] Comment on above: Order Comment: 208 Performed By: #### L 501.6710, L500.2500, L100.0100 ####[facility] [address] [place], [address] Sodium [Moles/Vol] 140 mmol/L Normal 133-145 [facility] Comment on above: Order Comment: 208 Performed By: #### L 501.6710, L500.2500, L100.0100 ####[facility] [address] [place], [address] Urea nitrogen [Mass/Vol] 29 mg/dL High 4-19 [facility] Comment on above: Order Comment: 208 Performed By: #### L 501.6710, L500.2500, L100.0100 ####[facility] [address] [place], [address] Basophil percentageOrdered B y: Kelli Maurodayjuarez on 12-10-2024 Basophils/100 WBC (Bld) 0.5 % 0-1 [facility] CBC W/Diff, Automatedon 11-19 Absolute Lymph 2.60 X10 3/uL Normal 0.83-4.51 [facility] Comment on above: Order Comment: 208 Performed By: #### L 501.6710, L500.2500, L100.0100 ####[facility] [address] [place], [address] Absolute Neut 4.6 X10 3/uL Normal 2.0-7.7 [facility] Comment on above: Order Comment: 208 Performed By: #### L 501.6710, L500.2500, L100.0100 ####[facility] [address] [place], [address] Basophils/100 WBC (Bld) 0.5 % Normal 0-1 [facility] Comment on above: Order Comment: 208 Performed By: #### L 501.6710, L500.2500, L100.0100 ####[facility] [address] [place], [address] Eosinophils/100 WBC (Bld) 2.3 % Normal 0-5 [facility] Comment on above: Order Comment: 208 Performed By: #### L 501.6710, L500.2500, L100.0100 ####[facility] [address] [place], [address] Erythrocyte distribution width (RBC) [Ratio] 15.3 % High 11.6-14.6 [facility] Comment on above: Order Comment: 208 Performed By: #### L 501.6710, L500.2500, L100.0100 ####[facility] [address] [place], [address] Hematocrit (Bld) [Volume fraction] 33.8 % Low 40-54 [facility] Comment on above: Order Comment: 208 Performed By: #### L 501.6710, L500.2500, L100.0100 ####[facility] [address] [place], [address] Hemoglobin (Bld) [Mass/Vol] 11.2 g/dL Low 13.0-16.5 [facility] Comment on above: Order Comment: 208 Performed By: #### L 501.6710, L500.2500, L100.0100 ####[facility] [address] [place], [address] IG% 0.300 Normal 0.0-0.9 [facility] Comment on above: Order Comment: 208 Result Comment: IG% - Immature Granulocytes (promyelocytes, myelocytes andmetamyelocytes) > 1% indicates that a LEFT SHIFT is Present. Performed By: #### L 501.6710, L500.2500, L100.0100 ####[facility] [address] [place], [address] Lymphocytes/100 WBC (Bld) 32.9 % Normal 19-41 [facility] Comment on above: Order Comment: 208 Performed By: #### L 501.6710, L500.2500, L100.0100 ####[facility] [address] [place], [address] MCH (RBC) [Entitic mass] 27.1 pg Normal 27.0-32.0 [facility] Comment on above: Order Comment: 208 Performed By: #### L 501.6710, L500.2500, L100.0100 ####[facility] [address] [place], [address] MCHC (RBC) [Mass/Vol] 33.1 g/dL Normal 32-36 [facility] Comment on above: Order Comment: 208 Performed By: #### L 501.6710, L500.2500, L100.0100 ####[facility] [address] [place], [address] MCV (RBC) [Entitic vol] 81.6 fL Normal 80-94 [facility] Comment on above: Order Comment: 208 Performed By: #### L 501.6710, L500.2500, L100.0100 ####[facility] [address] [place], [address] Monocytes/100 WBC (Bld) 6.1 % Normal 0-10 [facility] Comment on above: Order Comment: 208 Performed By: #### L 501.6710, L500.2500, L100.0100 ####[facility] [address] [place], [address] Neutrophils/100 WBC (Bld) 57.9 % Normal 47-70 [facility] Comment on above: Order Comment: 208 Performed By: #### L 501.6710, L500.2500, L100.0100 ####[facility] [address] [place], [address] Nucleated RBC (Bld) [#/Vol] 0 10*3/uL Normal 0-5 [facility] Comment on above: Order Comment: 208 Performed By: #### L 501.6710, L500.2500, L100.0100 ####[facility] [address] [place], [address] Platelet mean volume (Bld) [Entitic vol] 11.4 fL Normal 6.2-12.0 [facility] Comment on above: Order Comment: 208 Performed By: #### L 501.6710, L500.2500, L100.0100 ####[facility] [address] [place], [address] Platelets (Bld) [#/Vol] 199 10*3/uL Normal 150-450 [facility] Comment on above: Order Comment: 208 Performed By: #### L 501.6710, L500.2500, L100.0100 ####[facility] [address] [place], [address] RBC (Bld) [#/Vol] 4.14 10*6/uL Low 4.6-6.2 [facility] Comment on above: Order Comment: 208 Performed By: #### L 501.6710, L500.2500, L100.0100 ####[facility] [address], [address] RDW SD 44.7 fl High 35.1-43.9 [facility] Comment on above: Order Comment: 208 Performed By: #### L 501.6710, L500.2500, L100.0100 ####[facility] [address] [place], [address] WBC (Bld) [#/Vol] 7.9 10*3/uL Normal 4.4-11.0 [facility] Comment on above: Order Comment: 208 Performed By: #### L 501.6710, L500.2500, L100.0100 ####[facility] [address], [address] CRPon 12-10-2024 C-REACTIVE PROT 19.40 mg/L High 0.0-3.0 [facility] Comment on above: Order Comment: 208 Performed By: #### L 501.6710, L500.2500, L100.0100 ####[facility] [address] [place], [address] Carbon dioxide, total [Moles /volume] in Central venous bloodOrdered By: Kelli Salgado on 12-10-2024 CO2 [Moles/Vol] 28.2 mmol/L 21.0-32.0 [facility] Chloride assayOrdered By: Chris Salgado on 12-10-2024 Chloride [Moles/Vol] 99 mmol/L 98-108 [facility] Eosinophil percentageOrdered By: Kelli Salgado on 12-10-2024 Eosinophils/100 WBC (Bld) 2.3 % 0-5 [facility] Erythrocyte distribution wid th ratioOrdered By: Kelli Salgado on 12-10-2024 Erythrocyte distribution width (RBC) [Ratio] 15.3 % High 11.6-14.6 [facility] Erythrocyte distribution wid th standard deviationOrdered By: Kelli Salgado on 12-10-2024 Erythrocyte distribution width (RBC) [Ratio] 44.7 fl High 35.1-43.9 [facility] Glomerular filtration rate ( GFR) estimation/1.73 sq m using serum, plasma, or whole bOrdered By: Kelli Salgado on 12-10-2024 GFR/1.73 sq M.predicted among non-blacks MDRD (S/P/Bld) [Vol rate/Area] 92 mL/min/{1.73_m2} >60 [facility] Hematocrit Auto (Bld) [Volum e fraction]Ordered By: Kelli Salgado on 12-10-2024 Hematocrit (Bld) [Volume fraction] 33.8 % Low 40-54 [facility] Hemoglobin measurementOrdere d By: Kelli Salgado on 12-10-2024 Hemoglobin (Bld) [Mass/Vol] 11.2 g/dL Low 13.0-16.5 [facility] Immature granulocytes/100 WB C Auto (Bld)Ordered By: Kelli Salgado on 12-10-2024 Immature granulocytes/100 WBC (Bld) 0.300 % 0.0-0.9 [facility] MCV (mean corpuscular volume ) determinationOrdered By: Kelli Salgado on 12-10-2024 MCV (RBC) [Entitic vol] 81.6 fL 80-94 [facility] Mean corpuscular hemoglobin (MCH) determinationOrdered By: Kelli Salgado on 12-10-2024 MCH (RBC) [Entitic mass] 27.1 pg 27.0-32.0 [facility] Monocyte percentageOrdered B y: Kelli Salgado on 12-10-2024 Monocytes/100 WBC (Bld) 6.1 % 0-10 [facility] Neutrophil percentageOrdered By: Kelli Salgado on 12-10-2024 Neutrophils/100 WBC (Bld) 57.9 % 47-70 [facility] Platelet countOrdered By: Chris Salgado on 12-10-2024 Platelets (Bld) [#/Vol] 199 10*3/uL 150-450 [facility] Potassium measurement (mass/ volume)Ordered By: Kelli Salgado on 12-10-2024 Potassium (Unsp spec) [Mass/Vol] 4.2 mmol/L 3.3-5.1 [facility] RBC Auto (Bld) [#/Vol]Ordere d By: Kelli Salgado on 12-10-2024 RBC (Bld) [#/Vol] 4.14 10*6/uL Low 4.6-6.2 [facility] Serum creatinine measurement (mass/volume)Ordered By: Kelli Salgado on 12-10-2024 Creatinine [Mass/Vol] 0.89 mg/dL 0.70-1.20 [facility] Serum glucose measurement (m ass/volume)Ordered By: Kelli Salgado on 12-10-2024 Glucose [Mass/Vol] 147 mg/dL High 70-99 [facility] Serum or plasma C reactive p rotein measurement (mass/volume)Ordered By: Kelli Salgado on 12-10-2024 CRP [Mass/Vol] 19.40 mg/L High 0.0-3.0 [facility] Serum or plasma calcium everardo urement (mass/volume)Ordered By: Kelli Salgado on 12-10-2024 Calcium [Mass/Vol] 9.3 mg/dL 7.6-11.0 [facility] Serum or plasma urea nitroge n measurement (mass/volume)Ordered By: Kelli Salgado on 12-10-2024 Urea nitrogen [Mass/Vol] 29 mg/dL High 4-19 [facility] Sodium levelOrdered By: Nilay Salgado on 12-10-2024 Sodium [Moles/Vol] 140 mmol/L 133-145 [facility] White blood cell (WBC) count Ordered By: Kelli Salgado on 12-10-2024 WBC (Bld) [#/Vol] 7.9 10*3/uL 4.4-11.0 [facility] Brain/Head without Contrasto n 11-29-2024 Brain/Head without Contrast Normal [facility] Absolute lymphocyte countOrd ered By: Kelli Salgado on 11-21-2024 Lymphocytes Auto (Unsp spec) [#/Vol] 2.30 10*3/uL 0.83-4.51 [facility] Absolute neutrophil countOrd ered By: Kelli Salgado on 11-21-2024 Neutrophils (Bld) [#/Vol] 4.4 10*3/uL 2.0-7.7 [facility] Anion gap in Serum or Plasma Ordered By: Kelli Salgado on 11-21-2024 Anion gap [Moles/Vol] 11 mmol/L 5-15 [facility] Automated lymphocyte count a s percentage of total leukocytesOrdered By: Kelli Salgado on 11-21-2024 Lymphocytes/100 WBC Auto (Unsp spec) 30.3 % 19-41 [facility] BUN/creatinine ratioOrdered By: Kelli Salgado on 11-21-2024 Urea nitrogen/Creatinine [Mass ratio] 36.6 mg/mg High 10-20 [facility] Basophil percentageOrdered B y: Kelli Salgado on 11-21-2024 Basophils/100 WBC (Bld) 0.7 % 0-1 [facility] Bilirubin, totalOrdered By: Kellidelmer Salgado on 11-21-2024 Bilirubin [Mass/Vol] 0.46 mg/dL 0.00-1.30 [facility] CBC W/Diff, Automatedon Absolute Lymph 2.30 X10 3/uL Normal 0.83-4.51 [facility] Comment on above: Performed By: #### L 101.9900, L100.0100, L500.4050, L501.8820 ####[facility] [address] [place], [address] Absolute Neut 4.4 X10 3/uL Normal 2.0-7.7 [facility] Comment on above: Performed By: #### L 101.9900, L100.0100, L500.4050, L501.8820 ####[facility] [address] [place], [address] Basophils/100 WBC (Bld) 0.7 % Normal 0-1 [facility] Comment on above: Performed By: #### L 101.9900, L100.0100, L500.4050, L501.8820 ####[facility] [address] [place], [address] Eosinophils/100 WBC (Bld) 2.8 % Normal 0-5 [facility] Comment on above: Performed By: #### L 101.9900, L100.0100, L500.4050, L501.8820 ####[facility] [address] [place], [address] Erythrocyte distribution width (RBC) [Ratio] 14.6 % Normal 11.6-14.6 [facility] Comment on above: Performed By: #### L 101.9900, L100.0100, L500.4050, L501.8820 ####[facility] [address] [place], [address] Hematocrit (Bld) [Volume fraction] 38.4 % Low 40-54 [facility] Comment on above: Performed By: #### L 101.9900, L100.0100, L500.4050, L501.8820 ####[facility] [address] [place], [address] Hemoglobin (Bld) [Mass/Vol] 12.6 g/dL Low 13.0-16.5 [facility] Comment on above: Performed By: #### L 101.9900, L100.0100, L500.4050, L501.8820 ####[facility] [address] [place], [address] IG% 0.400 Normal 0.0-0.9 [facility] Comment on above: Result Comment: IG% - Immature Granulocytes (promyelocytes, myelocytes andmetamyelocytes) > 1% indicates that a LEFT SHIFT is Present. Performed By: #### L 101.9900, L100.0100, L500.4050, L501.8820 ####[facility] [address] [place], [address] Lymphocytes/100 WBC (Bld) 30.3 % Normal 19-41 [facility] Comment on above: Performed By: #### L 101.9900, L100.0100, L500.4050, L501.8820 ####[facility] [address] [place], [address] MCH (RBC) [Entitic mass] 26.5 pg Low 27.0-32.0 [facility] Comment on above: Performed By: #### L 101.9900, L100.0100, L500.4050, L501.8820 ####[facility] [address] [place], [address] MCHC (RBC) [Mass/Vol] 32.8 g/dL Normal 32-36 [facility] Comment on above: Performed By: #### L 101.9900, L100.0100, L500.4050, L501.8820 ####[facility] [address] [place], [address] MCV (RBC) [Entitic vol] 80.8 fL Normal 80-94 [facility] Comment on above: Performed By: #### L 101.9900, L100.0100, L500.4050, L501.8820 ####[facility] [address] [place], [address] Monocytes/100 WBC (Bld) 7.4 % Normal 0-10 [facility] Comment on above: Performed By: #### L 101.9900, L100.0100, L500.4050, L501.8820 ####[facility] [address] [place], [address] Neutrophils/100 WBC (Bld) 58.4 % Normal 47-70 [facility] Comment on above: Performed By: #### L 101.9900, L100.0100, L500.4050, L501.8820 ####[facility] [address] [place], [address] Nucleated RBC (Bld) [#/Vol] 0 10*3/uL Normal 0-5 [facility] Comment on above: Performed By: #### L 101.9900, L100.0100, L500.4050, L501.8820 ####[facility] [address] [place], [address] Platelet mean volume (Bld) [Entitic vol] 11.1 fL Normal 6.2-12.0 [facility] Comment on above: Performed By: #### L 101.9900, L100.0100, L500.4050, L501.8820 ####[facility] [address] [place], [address] Platelets (Bld) [#/Vol] 174 10*3/uL Normal 150-450 [facility] Comment on above: Performed By: #### L 101.9900, L100.0100, L500.4050, L501.8820 ####[facility] [address] [place], [address] RBC (Bld) [#/Vol] 4.75 10*6/uL Normal 4.6-6.2 [facility] Comment on above: Performed By: #### L 101.9900, L100.0100, L500.4050, L501.8820 ####[facility] [address] [place], [address] RDW SD 42.1 fl Normal 35.1-43.9 [facility] Comment on above: Performed By: #### L 101.9900, L100.0100, L500.4050, L501.8820 ####[facility] [address] [place], [address] WBC (Bld) [#/Vol] 7.6 10*3/uL Normal 4.4-11.0 [facility] Comment on above: Performed By: #### L 101.9900, L100.0100, L500.4050, L501.8820 ####[facility] [address] [place], [address] Carbon dioxide, total [Moles /volume] in Central venous bloodOrdered By: Kelli Salgado on 11-21-2024 CO2 [Moles/Vol] 29.3 mmol/L 21.0-32.0 [facility] Chloride assayOrdered By: Chris Salgado on 11-21-2024 Chloride [Moles/Vol] 100 mmol/L 98-108 [facility] Comprehensive Metabolic Prof ilon 11-21-2024 GAP 11 Normal 5-15 [facility] Comment on above: Performed By: #### L 101.9900, L100.0100, L500.4050, L501.8820 ####[facility] [address] [place], [address] Albumin [Mass/Vol] 3.4 g/dL Normal 3.4-4.8 [facility] Comment on above: Performed By: #### L 101.9900, L100.0100, L500.4050, L501.8820 ####[facility] [facility] [address] [place], [address] Albumin/Globulin [Mass ratio] 1.0 {ratio} Normal 0.9-2.4 [facility] Comment on above: Performed By: #### L 101.9900, L100.0100, L500.4050, L501.8820 ####[facility] [address] [place], [address] ALK PHOS 120 U/L Normal 40-129 [facility] Comment on above: Performed By: #### L 101.9900, L100.0100, L500.4050, L501.8820 ####[facility] [address] [place], [address] ALT [Catalytic activity/Vol] 16 U/L Normal <=46 [facility] Comment on above: Performed By: #### L 101.9900, L100.0100, L500.4050, L501.8820 ####[facility] [address] [place], [address] AST [Catalytic activity/Vol] 24 U/L Normal <=37 [facility] Comment on above: Performed By: #### L 101.9900, L100.0100, L500.4050, L501.8820 ####[facility] [address] [place], [address] Bilirubin [Mass/Vol] 0.46 mg/dL Normal 0.00-1.30 [facility] Comment on above: Performed By: #### L 101.9900, L100.0100, L500.4050, L501.8820 ####[facility] [address] [place], [address] BUN/CRE 36.6 RATIO High 10-20 [facility] Comment on above: Performed By: #### L 101.9900, L100.0100, L500.4050, L501.8820 ####[facility] [address] [place], [address] Calcium [Mass/Vol] 9.5 mg/dL Normal 7.6-11.0 [facility] Comment on above: Performed By: #### L 101.9900, L100.0100, L500.4050, L501.8820 ####[facility] [address] [place], [address] Chloride [Moles/Vol] 100 mmol/L Normal 98-108 [facility] Comment on above: Performed By: #### L 101.9900, L100.0100, L500.4050, L501.8820 ####[facility] [address] [place], [address] CO2 [Moles/Vol] 29.3 mmol/L Normal 21.0-32.0 [facility] Comment on above: Performed By: #### L 101.9900, L100.0100, L500.4050, L501.8820 ####[facility] [address] [place], [address] Creatinine [Mass/Vol] 0.71 mg/dL Normal 0.70-1.20 [facility] Comment on above: Performed By: #### L 101.9900, L100.0100, L500.4050, L501.8820 ####[facility] [address] [place], [address] GFR/1.73 sq M.predicted among non-blacks MDRD (S/P/Bld) [Vol rate/Area] 99 mL/min/{1.73_m2} Normal >60 [facility] Comment on above: Result Comment: mL/m in/1.73m2 CKD-EPI Creatinine Equation (2020) Performed By: #### L 101.9900, L100.0100, L500.4050, L501.8820 ####[facility] [address] [place], [address] Globulin (S) [Mass/Vol] 3.5 g/dL Normal 2.2-4.2 [facility] Comment on above: Performed By: #### L 101.9900, L100.0100, L500.4050, L501.8820 ####[facility] [address] [place], [address] Glucose [Mass/Vol] 141 mg/dL High 70-99 [facility] Comment on above: Performed By: #### L 101.9900, L100.0100, L500.4050, L501.8820 ####[facility] [address] [place], [address] Potassium [Moles/Vol] 4.1 mmol/L Normal 3.3-5.1 [facility] Comment on above: Performed By: #### L 101.9900, L100.0100, L500.4050, L501.8820 ####[facility] [address] [place], [address] Sodium [Moles/Vol] 139 mmol/L Normal 133-145 [facility] Comment on above: Performed By: #### L 101.9900, L100.0100, L500.4050, L501.8820 ####[facility] [address] [place], [address] T PROT 6.8 g/dL Normal 5.9-8.4 [facility] Comment on above: Performed By: #### L 101.9900, L100.0100, L500.4050, L501.8820 ####[facility] [address] [place], [address] Urea nitrogen [Mass/Vol] 26 mg/dL High 4-19 [facility] Comment on above: Performed By: #### L 101.9900, L100.0100, L500.4050, L501.8820 ####[facility] [address] [place], [address] Eosinophil percentageOrdered By: Kelli Salgado on 11-21-2024 Eosinophils/100 WBC (Bld) 2.8 % 0-5 [facility] Erythrocyte Sed Rateon 11-21 SED RATE 27 mm/hr High 0-20 [facility] Comment on above: Performed By: #### L 101.9900, L100.0100, L500.4050, L501.8820 ####[facility] [address] [place], [address] Erythrocyte distribution wid th ratioOrdered By: Kelli Salgado on 11-21-2024 Erythrocyte distribution width (RBC) [Ratio] 14.6 % 11.6-14.6 [facility] Erythrocyte distribution wid th standard deviationOrdered By: Kelli Salgado on 11-21-2024 Erythrocyte distribution width (RBC) [Ratio] 42.1 fl 35.1-43.9 [facility] Erythrocyte sedimentation ra teOrdered By: Kelli Salgado on 11-21-2024 ESR (Bld) [Velocity] 27 mm/h High 0-20 [facility] Glomerular filtration rate ( GFR) estimation/1.73 sq m using serum, plasma, or whole bOrdered By: Kelli Salgado on 11-21-2024 GFR/1.73 sq M.predicted among non-blacks MDRD (S/P/Bld) [Vol rate/Area] 99 mL/min/{1.73_m2} >60 [facility] Comment on above: mL/min/1.73m2 CKD-EP I Creatinine Equation (2020) Hematocrit Auto (Bld) [Volum e fraction]Ordered By: Kelli Salgado on 11-21-2024 Hematocrit (Bld) [Volume fraction] 38.4 % Low 40-54 [facility] Hemoglobin measurementOrdere d By: Kelli Salgado on 11-21-2024 Hemoglobin (Bld) [Mass/Vol] 12.6 g/dL Low 13.0-16.5 [facility] Immature granulocytes/100 WB C Auto (Bld)Ordered By: Kelli Salgado on 11-21-2024 Immature granulocytes/100 WBC (Bld) 0.400 % 0.0-0.9 [facility] Comment on above: IG% - Immature Granu locytes (promyelocytes, myelocytes and metamyelocytes) > 1% indicates that a LEFT SHIFT is Present. Laboratory - Chemistry and C hemistry - challengeOrdered By: Kelli Salgado on 11-21-2024 AST [Catalytic activity/Vol] 24 U/L <38 [facility] MCV (mean corpuscular volume ) determinationOrdered By: Kelli Salgado on 11-21-2024 MCV (RBC) [Entitic vol] 80.8 fL 80-94 [facility] Mean corpuscular hemoglobin (MCH) determinationOrdered By: Kelli Salgado on 11-21-2024 MCH (RBC) [Entitic mass] 26.5 pg Low 27.0-32.0 [facility] Mean corpuscular hemoglobin concentration (MCHC) determinationOrdered By: Kelli Salgado on 11-21-2024 MCHC (RBC) [Mass/Vol] 32.8 g/dL 32-36 [facility] Mean platelet volume determi nationOrdered By: Kelli Salgado on 11-21-2024 Platelet mean volume (Bld) [Entitic vol] 11.1 fL 6.2-12.0 [facility] Monocyte percentageOrdered B y: Kelli Salgado on 11-21-2024 Monocytes/100 WBC (Bld) 7.4 % 0-10 [facility] Neutrophil percentageOrdered By: Kelli Salgado on 11-21-2024 Neutrophils/100 WBC (Bld) 58.4 % 47-70 [facility] No Panel InformationOrdered By: Kelli Salgado on 11-21-2024 24 U/L <38 [facility] Nucleated red blood cell per centageOrdered By: Kelli Salgado on 11-21-2024 Nucleated RBC/100 WBC (Bld) [Ratio] 0 % 0-5 [facility] Platelet countOrdered By: Chris Salgado on 11-21-2024 Platelets (Bld) [#/Vol] 174 10*3/uL 150-450 [facility] Potassium measurement (mass/ volume)Ordered By: Kelli Salgado on 11-21-2024 Potassium (Unsp spec) [Mass/Vol] 4.1 mmol/L 3.3-5.1 [facility] RBC Auto (Bld) [#/Vol]Ordere d By: Kelli Salgado on 11-21-2024 RBC (Bld) [#/Vol] 4.75 10*6/uL 4.6-6.2 [facility] Serum creatinine measurement (mass/volume)Ordered By: Kelli Salgado on 11-21-2024 Creatinine [Mass/Vol] 0.71 mg/dL 0.70-1.20 [facility] Serum globulin measurementOr dered By: Kelli Salgado on 11-21-2024 Globulin (S) [Mass/Vol] 3.5 g/dL 2.2-4.2 [facility] Serum glucose measurement (m ass/volume)Ordered By: Kelli Salgado on 11-21-2024 Glucose [Mass/Vol] 141 mg/dL High 70-99 [facility] Serum or plasma alanine herrmann otransferase (ALT) measurementOrdered By: Kelli Salgado on 11-21-2024 ALT [Catalytic activity/Vol] 16 U/L <47 [facility] Serum or plasma albumin everardo urement (mass/volume)Ordered By: Kelli Salgado on 11-21-2024 Albumin [Mass/Vol] 3.4 g/dL 3.4-4.8 [facility] Serum or plasma albumin/glob ulin mass ratioOrdered By: Kelli Salgado on 11-21-2024 Albumin/Globulin [Mass ratio] 1.0 {ratio} 0.9-2.4 [facility] Serum or plasma alkaline kaiser sphatase measurementOrdered By: Kelli Salgado on 11-21-2024 ALP [Catalytic activity/Vol] 120 U/L 40-129 [facility] Serum or plasma calcium everardo urement (mass/volume)Ordered By: Kelli Salgado on 11-21-2024 Calcium [Mass/Vol] 9.5 mg/dL 7.6-11.0 [facility] Serum or plasma urea nitroge n measurement (mass/volume)Ordered By: Kelli Salgado on 11-21-2024 Urea nitrogen [Mass/Vol] 26 mg/dL High 4-19 [facility] Sodium levelOrdered By: Nilay Salgado on 11-21-2024 Sodium [Moles/Vol] 139 mmol/L 133-145 [facility] Total proteinOrdered By: Tawanda Salgado on 11-21-2024 Protein [Mass/Vol] 6.8 g/dL 5.9-8.4 [facility] Trough vancomycin levelOrder ed By: Kelli Salgado on 11-21-2024 Vancomycin trough [Mass/Vol] 17.7 ug/mL High 5.0-15.0 [facility] Comment on above: Recommended goal tro ugh [...] therapy recommended for serious lifethreatening infections include:- Uaojzjdgdw-Wqpbbpavxefk-Siimzdsbr (Ventilator/Healtcare Associated)-Sepsis PLEASE CONTACT PHARMACY SERVICES (#[id number]) FOR INTERPRETATIONOF RESULTS. Vancomycin, Trough Levelon 0 11-21-2024 VANCO, TROUGH 17.7 ug/mL High 5.0-15.0 [facility] Comment on above: Order Comment: 0000 Result [...] therapy recommended for serious lifethreatening infections include:- Ruqlkpubrf-Trmlqcekgoaq-Bsyhnwrdz (Ventilator/Healtcare Associated)-SepsisPLEASE CONTACT PHARMACY SERVICES (#[id number]) FOR INTERPRETATIONOF RESULTS. Performed By: #### L 101.9900, L100.0100, L500.4050, L501.8820 ####[facility] [address] [place], [address] White blood cell (WBC) count Ordered By: Kelli Salgado on 11-21-2024 WBC (Bld) [#/Vol] 7.6 10*3/uL 4.4-11.0 [facility] Absolute lymphocyte countOrd ered By: Kelli Saglado on 11-14-2024 Lymphocytes Auto (Unsp spec) [#/Vol] 2.69 10*3/uL 0.83-4.51 [facility] Absolute neutrophil countOrd ered By: Kelli Salgado on 11-14-2024 Neutrophils (Bld) [#/Vol] 3.1 10*3/uL 2.0-7.7 [facility] Anion gap in Serum or Plasma Ordered By: Kelli Salgado on 11-14-2024 Anion gap [Moles/Vol] 12 mmol/L - [facility] Automated lymphocyte count a s percentage of total leukocytesOrdered By: Kelli Salgado on 11-14-2024 Lymphocytes/100 WBC Auto (Unsp spec) 40.0 % [facility] BUN/creatinine ratioOrdered By: Kelli Salgado on 11-14-2024 Urea nitrogen/Creatinine [Mass ratio] 46.0 mg/mg High - [facility] Basophil percentageOrdered B y: Kelli Salgado on 11-14-2024 Basophils/100 WBC (Bld) 0.7 % 0-1 [facility] Bilirubin, totalOrdered By: Kelli Salgado on 11-14-2024 Bilirubin [Mass/Vol] 0.42 mg/dL 0.00-1.30 [facility] CBC W/Diff, Automatedon 10-19 Absolute Lymph 2.69 X10 3/uL Normal 0.83-4.51 [facility] Comment on above: Order Comment: 208 Performed By: #### L 501.6710, L100.0100, L101.9900, L500.4050, L501.8820 ####[facility] [address] [place], [address] Absolute Neut 3.1 X10 3/uL Normal 2.0-7.7 [facility] Comment on above: Order Comment: 208 Performed By: #### L 501.6710, L100.0100, L101.9900, L500.4050, L501.8820 ####[facility] [address] [place], [address] Basophils/100 WBC (Bld) 0.7 % Normal 0-1 [facility] Comment on above: Order Comment: 208 Performed By: #### L 501.6710, L100.0100, L101.9900, L500.4050, L501.8820 ####[facility] [address] [place], [address] Eosinophils/100 WBC (Bld) 4.2 % Normal 0-5 [facility] Comment on above: Order Comment: 208 Performed By: #### L 501.6710, L100.0100, L101.9900, L500.4050, L501.8820 ####[facility] [address] [place], [address] Erythrocyte distribution width (RBC) [Ratio] 14.4 % Normal 11.6-14.6 [facility] Comment on above: Order Comment: 208 Performed By: #### L 501.6710, L100.0100, L101.9900, L500.4050, L501.8820 ####[facility] [address] [place], [address] Hematocrit (Bld) [Volume fraction] 36.6 % Low 40-54 [facility] Comment on above: Order Comment: 208 Performed By: #### L 501.6710, L100.0100, L101.9900, L500.4050, L501.8820 ####[facility] [address] [place], [address] Hemoglobin (Bld) [Mass/Vol] 11.9 g/dL Low 13.0-16.5 [facility] Comment on above: Order Comment: 208 Performed By: #### L 501.6710, L100.0100, L101.9900, L500.4050, L501.8820 ####[facility] [address] [place], [address] IG% 0.100 Normal 0.0-0.9 [facility] Comment on above: Order Comment: 208 Result Comment: IG% - Immature Granulocytes (promyelocytes, myelocytes andmetamyelocytes) > 1% indicates that a LEFT SHIFT is Present. Performed By: #### L 501.6710, L100.0100, L101.9900, L500.4050, L501.8820 ####[facility] [address] [place], [address] Lymphocytes/100 WBC (Bld) 40.0 % Normal 19-41 [facility] Comment on above: Order Comment: 208 Performed By: #### L 501.6710, L100.0100, L101.9900, L500.4050, L501.8820 ####[facility] [address] [place], [address] MCH (RBC) [Entitic mass] 26.6 pg Low 27.0-32.0 [facility] Comment on above: Order Comment: 208 Performed By: #### L 501.6710, L100.0100, L101.9900, L500.4050, L501.8820 ####[facility] [address] [place], [address] MCHC (RBC) [Mass/Vol] 32.5 g/dL Normal 32-36 [facility] Comment on above: Order Comment: 208 Performed By: #### L 501.6710, L100.0100, L101.9900, L500.4050, L501.8820 ####[facility] [address] [place], [address] MCV (RBC) [Entitic vol] 81.9 fL Normal 80-94 [facility] Comment on above: Order Comment: 208 Performed By: #### L 501.6710, L100.0100, L101.9900, L500.4050, L501.8820 ####[facility] [address] [place], [address] Monocytes/100 WBC (Bld) 8.5 % Normal 0-10 [facility] Comment on above: Order Comment: 208 Performed By: #### L 501.6710, L100.0100, L101.9900, L500.4050, L501.8820 ####[facility] [address] [place], [address] Neutrophils/100 WBC (Bld) 46.5 % Low 47-70 [facility] Comment on above: Order Comment: 208 Performed By: #### L 501.6710, L100.0100, L101.9900, L500.4050, L501.8820 ####[facility] [address] [place], [address] Nucleated RBC (Bld) [#/Vol] 0 10*3/uL Normal 0-5 [facility] Comment on above: Order Comment: 208 Performed By: #### L 501.6710, L100.0100, L101.9900, L500.4050, L501.8820 ####[facility] [address] [place], [address] Platelet mean volume (Bld) [Entitic vol] 11.3 fL Normal 6.2-12.0 [facility] Comment on above: Order Comment: 208 Performed By: #### L 501.6710, L100.0100, L101.9900, L500.4050, L501.8820 ####[facility] [address] [place], [address] Platelets (Bld) [#/Vol] 199 10*3/uL Normal 150-450 [facility] Comment on above: Order Comment: 208 Performed By: #### L 501.6710, L100.0100, L101.9900, L500.4050, L501.8820 ####[facility] [address] [place], [address] RBC (Bld) [#/Vol] 4.47 10*6/uL Low 4.6-6.2 [facility] Comment on above: Order Comment: 208 Performed By: #### L 501.6710, L100.0100, L101.9900, L500.4050, L501.8820 ####[facility] [address] [place], [address] RDW SD 41.3 fl Normal 35.1-43.9 [facility] Comment on above: Order Comment: 208 Performed By: #### L 501.6710, L100.0100, L101.9900, L500.4050, L501.8820 ####[facility] [address] [place], [address] WBC (Bld) [#/Vol] 6.7 10*3/uL Normal 4.4-11.0 [facility] Comment on above: Order Comment: 208 Performed By: #### L 501.6710, L100.0100, L101.9900, L500.4050, L501.8820 ####[facility] [address] [place], [address] CRPon 11-14-2024 C-REACTIVE PROT 12.40 mg/L High 0.0-3.0 [facility] Comment on above: Order Comment: 208 Performed By: #### L 501.6710, L100.0100, L101.9900, L500.4050, L501.8820 ####[facility] [address] [place], [address] Carbon dioxide, total [Moles /volume] in Central venous bloodOrdered By: Kelli Salgado on 11-14-2024 CO2 [Moles/Vol] 26.9 mmol/L 21.0-32.0 [facility] Chloride assayOrdered By: Chris Salgado on 11-14-2024 Chloride [Moles/Vol] 103 mmol/L 98-108 [facility] Comprehensive Metabolic Prof ilon 11-14-2024 Albumin [Mass/Vol] 3.4 g/dL Normal 3.4-4.8 [facility] Comment on above: Order Comment: 208 Performed By: #### L 501.6710, L100.0100, L101.9900, L500.4050, L501.8820 ####[facility] [address] [place], [address] Albumin/Globulin [Mass ratio] 1.0 {ratio} Normal 0.9-2.4 [facility] Comment on above: Order Comment: 208 Performed By: #### L 501.6710, L100.0100, L101.9900, L500.4050, L501.8820 ####[facility] [address] [place], [address] ALK PHOS 110 U/L Normal 40-129 [facility] Comment on above: Order Comment: 208 Performed By: #### L 501.6710, L100.0100, L101.9900, L500.4050, L501.8820 ####[facility] [address] [place], [address] ALT [Catalytic activity/Vol] 18 U/L Normal <=46 [facility] Comment on above: Order Comment: 208 Performed By: #### L 501.6710, L100.0100, L101.9900, L500.4050, L501.8820 ####[facility] [address] [place], [address] AST [Catalytic activity/Vol] 23 U/L Normal <=37 [facility] Comment on above: Order Comment: 208 Performed By: #### L 501.6710, L100.0100, L101.9900, L500.4050, L501.8820 ####[facility] [address] [place], [address] Bilirubin [Mass/Vol] 0.42 mg/dL Normal 0.00-1.30 [facility] Comment on above: Order Comment: 208 Performed By: #### L 501.6710, L100.0100, L101.9900, L500.4050, L501.8820 ####[facility] [address] [place], [address] BUN/CRE 46.0 RATIO High 10-20 [facility] Comment on above: Order Comment: 208 Performed By: #### L 501.6710, L100.0100, L101.9900, L500.4050, L501.8820 ####[facility] [address] [place], [address] Calcium [Mass/Vol] 9.6 mg/dL Normal 7.6-11.0 [facility] Comment on above: Order Comment: 208 Performed By: #### L 501.6710, L100.0100, L101.9900, L500.4050, L501.8820 ####[facility] [address] [place], [address] Chloride [Moles/Vol] 103 mmol/L Normal 98-108 [facility] Comment on above: Order Comment: 208 Performed By: #### L 501.6710, L100.0100, L101.9900, L500.4050, L501.8820 ####[facility] [address] [place], [address] CO2 [Moles/Vol] 26.9 mmol/L Normal 21.0-32.0 [facility] Comment on above: Order Comment: 208 Performed By: #### L 501.6710, L100.0100, L101.9900, L500.4050, L501.8820 ####[facility] [address] [place], [address] Creatinine [Mass/Vol] 0.67 mg/dL Low 0.70-1.20 [facility] Comment on above: Order Comment: 208 Performed By: #### L 501.6710, L100.0100, L101.9900, L500.4050, L501.8820 ####[facility] [address] [place], [address] GAP 12 Normal 5-15 [facility] Comment on above: Order Comment: 208 Performed By: #### L 501.6710, L100.0100, L101.9900, L500.4050, L501.8820 ####[facility] [address] [place], [address] GFR/1.73 sq M.predicted among non-blacks MDRD (S/P/Bld) [Vol rate/Area] 101 mL/min/{1.73_m2} Normal >60 [facility] Comment on above: Order Comment: 208 Result Comment: mL/m in/1.73m2 CKD-EPI Creatinine Equation (2020) Performed By: #### L 501.6710, L100.0100, L101.9900, L500.4050, L501.8820 ####[facility] [address] [place], [address] Globulin (S) [Mass/Vol] 3.3 g/dL Normal 2.2-4.2 [facility] Comment on above: Order Comment: 208 Performed By: #### L 501.6710, L100.0100, L101.9900, L500.4050, L501.8820 ####[facility] [address] [place], [address] Glucose [Mass/Vol] 124 mg/dL High 70-99 [facility] Comment on above: Order Comment: 208 Performed By: #### L 501.6710, L100.0100, L101.9900, L500.4050, L501.8820 ####[facility] [address] [place], [address] Potassium [Moles/Vol] 4.1 mmol/L Normal 3.3-5.1 [facility] Comment on above: Order Comment: 208 Performed By: #### L 501.6710, L100.0100, L101.9900, L500.4050, L501.8820 ####[facility] [address] [place], [address] Sodium [Moles/Vol] 141 mmol/L Normal 133-145 [facility] Comment on above: Order Comment: 208 Performed By: #### L 501.6710, L100.0100, L101.9900, L500.4050, L501.8820 ####[facility] [address] [place], [address] T PROT 6.7 g/dL Normal 5.9-8.4 [facility] Comment on above: Order Comment: 208 Performed By: #### L 501.6710, L100.0100, L101.9900, L500.4050, L501.8820 ####[facility] [address] [place], [address] Urea nitrogen [Mass/Vol] 31 mg/dL High 4-19 [facility] Comment on above: Order Comment: 208 Performed By: #### L 501.6710, L100.0100, L101.9900, L500.4050, L501.8820 ####[facility] [address] [place], [address] Eosinophil percentageOrdered By: Kelli Salgado on 11-14-2024 Eosinophils/100 WBC (Bld) 4.2 % 0-5 [facility] Erythrocyte Sed Rateon 11-14 SED RATE 39 mm/hr High 0-20 [facility] Comment on above: Order Comment: 208 Performed By: #### L 501.6710, L100.0100, L101.9900, L500.4050, L501.8820 ####[facility] [address] [place], [address] Erythrocyte distribution wid th ratioOrdered By: Kelli Salgado on 11-14-2024 Erythrocyte distribution width (RBC) [Ratio] 14.4 % 11.6-14.6 [facility] Erythrocyte distribution wid th standard deviationOrdered By: Kelli Salgado on 11-14-2024 Erythrocyte distribution width (RBC) [Ratio] 41.3 fl 35.1-43.9 [facility] Erythrocyte sedimentation ra teOrdered By: Kelli Salgado on 11-14-2024 ESR (Bld) [Velocity] 39 mm/h High 0-20 [facility] Glomerular filtration rate ( GFR) estimation/1.73 sq m using serum, plasma, or whole bOrdered By: Kelli Salgado on 11-14-2024 GFR/1.73 sq M.predicted among non-blacks MDRD (S/P/Bld) [Vol rate/Area] 101 mL/min/{1.73_m2} >60 [facility] Comment on above: mL/min/1.73m2 CKD-EP I Creatinine Equation (2020) Hematocrit Auto (Bld) [Volum e fraction]Ordered By: Kelli Salgado on 11-14-2024 Hematocrit (Bld) [Volume fraction] 36.6 % Low 40-54 [facility] Hemoglobin measurementOrdere d By: Kelli Salgado on 11-14-2024 Hemoglobin (Bld) [Mass/Vol] 11.9 g/dL Low 13.0-16.5 [facility] Immature granulocytes/100 WB C Auto (Bld)Ordered By: Kelli Salgado on 11-14-2024 Immature granulocytes/100 WBC (Bld) 0.100 % 0.0-0.9 [facility] Comment on above: IG% - Immature Granu locytes (promyelocytes, myelocytes and metamyelocytes) > 1% indicates that a LEFT SHIFT is Present. Laboratory - Chemistry and C hemistry - challengeOrdered By: Kelli Salgado on 11-14-2024 AST [Catalytic activity/Vol] 23 U/L <38 [facility] MCV (mean corpuscular volume ) determinationOrdered By: Kelli Salgado on 11-14-2024 MCV (RBC) [Entitic vol] 81.9 fL 80-94 [facility] Mean corpuscular hemoglobin (MCH) determinationOrdered By: Kelli Salgado on 11-14-2024 MCH (RBC) [Entitic mass] 26.6 pg Low 27.0-32.0 [facility] Mean corpuscular hemoglobin concentration (MCHC) determinationOrdered By: Kelli Salgado on 11-14-2024 MCHC (RBC) [Mass/Vol] 32.5 g/dL 32-36 [facility] Mean platelet volume determi nationOrdered By: Kelli Salgado on 11-14-2024 Platelet mean volume (Bld) [Entitic vol] 11.3 fL 6.2-12.0 [facility] Monocyte percentageOrdered B y: Kelli Salgado on 11-14-2024 Monocytes/100 WBC (Bld) 8.5 % 0-10 [facility] Neutrophil percentageOrdered By: Kelli Salgado on 11-14-2024 Neutrophils/100 WBC (Bld) 46.5 % Low 47-70 [facility] No Panel InformationOrdered By: Kelli Salgado on 11-14-2024 23 U/L <38 [facility] Nucleated red blood cell per centageOrdered By: Kelli Salgado on 11-14-2024 Nucleated RBC/100 WBC (Bld) [Ratio] 0 % 0-5 [facility] Platelet countOrdered By: Chris Salgado on 11-14-2024 Platelets (Bld) [#/Vol] 199 10*3/uL 150-450 [facility] Potassium measurement (mass/ volume)Ordered By: Kelli Salgado on 11-14-2024 Potassium (Unsp spec) [Mass/Vol] 4.1 mmol/L 3.3-5.1 [facility] RBC Auto (Bld) [#/Vol]Ordere d By: Kelli Salgado on 11-14-2024 RBC (Bld) [#/Vol] 4.47 10*6/uL Low 4.6-6.2 [facility] Serum creatinine measurement (mass/volume)Ordered By: Kelli Salgado on 11-14-2024 Creatinine [Mass/Vol] 0.67 mg/dL Low 0.70-1.20 [facility] Serum globulin measurementOr dered By: Kelli Salgado on 11-14-2024 Globulin (S) [Mass/Vol] 3.3 g/dL 2.2-4.2 [facility] Serum glucose measurement (m ass/volume)Ordered By: Kelli Salgado on 11-14-2024 Glucose [Mass/Vol] 124 mg/dL High 70-99 [facility] Serum or plasma C reactive p rotein measurement (mass/volume)Ordered By: Kelli Salgado on 11-14-2024 CRP [Mass/Vol] 12.40 mg/L High 0.0-3.0 [facility] Serum or plasma alanine herrmann otransferase (ALT) measurementOrdered By: Kelli Salgado on 11-14-2024 ALT [Catalytic activity/Vol] 18 U/L <47 [facility] Serum or plasma albumin everardo urement (mass/volume)Ordered By: Kelli Salgado on 11-14-2024 Albumin [Mass/Vol] 3.4 g/dL 3.4-4.8 [facility] Serum or plasma albumin/glob ulin mass ratioOrdered By: Kelli Salgado on 11-14-2024 Albumin/Globulin [Mass ratio] 1.0 {ratio} 0.9-2.4 [facility] Serum or plasma alkaline kaiser sphatase measurementOrdered By: Kelli Salgado on 11-14-2024 ALP [Catalytic activity/Vol] 110 U/L 40-129 [facility] Serum or plasma calcium everardo urement (mass/volume)Ordered By: Kelli Salgado on 11-14-2024 Calcium [Mass/Vol] 9.6 mg/dL 7.6-11.0 [facility] Serum or plasma urea nitroge n measurement (mass/volume)Ordered By: Kelli Salgado on 11-14-2024 Urea nitrogen [Mass/Vol] 31 mg/dL High 4-19 [facility] Sodium levelOrdered By: Nilay Salgado on 11-14-2024 Sodium [Moles/Vol] 141 mmol/L 133-145 [facility] Total proteinOrdered By: Tawanda Salgado on 11-14-2024 Protein [Mass/Vol] 6.7 g/dL 5.9-8.4 [facility] Trough vancomycin levelOrder ed By: Kelli Salgado on 11-14-2024 Vancomycin trough [Mass/Vol] 17.6 ug/mL High 5.0-15.0 [facility] Comment on above: Recommended goal tro ugh [...] therapy recommended for serious lifethreatening infections include:- Lvygvpktgj-Sffdjcdlgvlh-Xletyacsf (Ventilator/Healtcare Associated)-Sepsis PLEASE CONTACT PHARMACY SERVICES (#[id number]) FOR INTERPRETATIONOF RESULTS. Vancomycin, Trough Levelon 0 11-14-2024 VANCO, TROUGH 17.6 ug/mL High 5.0-15.0 [facility] Comment on above: Order Comment: Result Comment: [...] therapy recommended for serious lifethreatening infections include:- Xzzizrrkth-Msubxnmikxch-Dqxcuopkg (Ventilator/Healtcare Associated)-SepsisPLEASE CONTACT PHARMACY SERVICES (#[id number]) FOR INTERPRETATIONOF RESULTS. Performed By: #### L 501.6710, L100.0100, L101.9900, L500.4050, L501.8820 ####[facility] [address] [place], [place], [id number] White blood cell (WBC) count Ordered By: Kelli Salgaod on 11-14-2024 WBC (Bld) [#/Vol] 6.7 10*3/uL 4.4-11.0 [facility] Absolute lymphocyte countOrd ered By: Kelli Salgado on 11-07-2024 Lymphocytes Auto (Unsp spec) [#/Vol] 2.39 10*3/uL 0.83-4.51 [facility] Absolute neutrophil countOrd ered By: Kellidelmer Salgado on 11-07-2024 Neutrophils (Bld) [#/Vol] 3.3 10*3/uL 2.0-7.7 [facility] Anion gap in Serum or Plasma Ordered By: Kelli Salgado on 11-07-2024 Anion gap [Moles/Vol] 11 mmol/L 5- [facility] Automated lymphocyte count a s percentage of total leukocytesOrdered By: Kelli Salgado on 11-07-2024 Lymphocytes/100 WBC Auto (Unsp spec) 36.4 % - [facility] BUN/creatinine ratioOrdered By: Kellidelmer Salgado on 11-07-2024 Urea nitrogen/Creatinine [Mass ratio] 38.8 mg/mg High 10- [facility] Basophil percentageOrdered B y: Kelli Salgado on 11-07-2024 Basophils/100 WBC (Bld) 0.9 % 0-1 [facility] Bilirubin, totalOrdered By: Kelli Salgado on 11-07-2024 Bilirubin [Mass/Vol] 0.51 mg/dL 0.00-1.30 [facility] CBC W/Diff, Automatedon 10-19 Absolute Lymph 2.39 X10 3/uL Normal 0.83-4.51 [facility] Comment on above: Order Comment: 208 Performed By: #### L 101.9900, L100.0100, L501.8820, L501.6710, L500.4050 ####[facility] [address] [place], [place], [id number] Absolute Neut 3.3 X10 3/uL Normal 2.0-7.7 [facility] Comment on above: Order Comment: 208 Performed By: #### L 101.9900, L100.0100, L501.8820, L501.6710, L500.4050 ####[facility] [address] [place], [address] Basophils/100 WBC (Bld) 0.9 % Normal 0-1 [facility] Comment on above: Order Comment: 208 Performed By: #### L 101.9900, L100.0100, L501.8820, L501.6710, L500.4050 ####[facility] [address] [place], [address] Eosinophils/100 WBC (Bld) 5.5 % High 0-5 [facility] Comment on above: Order Comment: 208 Performed By: #### L 101.9900, L100.0100, L501.8820, L501.6710, L500.4050 ####[facility] [address] [place], [address] Erythrocyte distribution width (RBC) [Ratio] 14.1 % Normal 11.6-14.6 [facility] Comment on above: Order Comment: 208 Performed By: #### L 101.9900, L100.0100, L501.8820, L501.6710, L500.4050 ####[facility] [address] [place], [address] Hematocrit (Bld) [Volume fraction] 36.4 % Low 40-54 [facility] Comment on above: Order Comment: 208 Performed By: #### L 101.9900, L100.0100, L501.8820, L501.6710, L500.4050 ####[facility] [address] [place], [address] Hemoglobin (Bld) [Mass/Vol] 11.8 g/dL Low 13.0-16.5 [facility] Comment on above: Order Comment: 208 Performed By: #### L 101.9900, L100.0100, L501.8820, L501.6710, L500.4050 ####[facility] [address] [place], [address] IG% 0.300 Normal 0.0-0.9 [facility] Comment on above: Order Comment: 208 Result Comment: IG% - Immature Granulocytes (promyelocytes, myelocytes andmetamyelocytes) > 1% indicates that a LEFT SHIFT is Present. Performed By: #### L 101.9900, L100.0100, L501.8820, L501.6710, L500.4050 ####[facility] [address] [place], [address] Lymphocytes/100 WBC (Bld) 36.4 % Normal 19-41 [facility] Comment on above: Order Comment: 208 Performed By: #### L 101.9900, L100.0100, L501.8820, L501.6710, L500.4050 ####[facility] [address] [place], [address] MCH (RBC) [Entitic mass] 26.3 pg Low 27.0-32.0 [facility] Comment on above: Order Comment: 208 Performed By: #### L 101.9900, L100.0100, L501.8820, L501.6710, L500.4050 ####[facility] [address] [place], [address] MCHC (RBC) [Mass/Vol] 32.4 g/dL Normal 32-36 [facility] Comment on above: Order Comment: 208 Performed By: #### L 101.9900, L100.0100, L501.8820, L501.6710, L500.4050 ####[facility] [address] [place], [address] MCV (RBC) [Entitic vol] 81.1 fL Normal 80-94 [facility] Comment on above: Order Comment: 208 Performed By: #### L 101.9900, L100.0100, L501.8820, L501.6710, L500.4050 ####[facility] [address] [place], [address] Monocytes/100 WBC (Bld) 6.9 % Normal 0-10 [facility] Comment on above: Order Comment: 208 Performed By: #### L 101.9900, L100.0100, L501.8820, L501.6710, L500.4050 ####[facility] [address] [place], [address] Neutrophils/100 WBC (Bld) 50.0 % Normal 47-70 [facility] Comment on above: Order Comment: 208 Performed By: #### L 101.9900, L100.0100, L501.8820, L501.6710, L500.4050 ####[facility] [address] [place], [address] Nucleated RBC (Bld) [#/Vol] 0 10*3/uL Normal 0-5 [facility] Comment on above: Order Comment: 208 Performed By: #### L 101.9900, L100.0100, L501.8820, L501.6710, L500.4050 ####[facility] [address] [place], [address] Platelet mean volume (Bld) [Entitic vol] 10.8 fL Normal 6.2-12.0 [facility] Comment on above: Order Comment: 208 Performed By: #### L 101.9900, L100.0100, L501.8820, L501.6710, L500.4050 ####[facility] [address] [place], [address] Platelets (Bld) [#/Vol] 239 10*3/uL Normal 150-450 [facility] Comment on above: Order Comment: 208 Performed By: #### L 101.9900, L100.0100, L501.8820, L501.6710, L500.4050 ####[facility] [address] [place], [address] RBC (Bld) [#/Vol] 4.49 10*6/uL Low 4.6-6.2 [facility] Comment on above: Order Comment: 208 Performed By: #### L 101.9900, L100.0100, L501.8820, L501.6710, L500.4050 ####[facility] [address] [place], [address] RDW SD 41.3 fl Normal 35.1-43.9 [facility] Comment on above: Order Comment: 208 Performed By: #### L 101.9900, L100.0100, L501.8820, L501.6710, L500.4050 ####[facility] [address] [place], [address] WBC (Bld) [#/Vol] 6.6 10*3/uL Normal 4.4-11.0 [facility] Comment on above: Order Comment: 208 Performed By: #### L 101.9900, L100.0100, L501.8820, L501.6710, L500.4050 ####[facility] [address] [place], [address] CRPon 11-07-2024 C-REACTIVE PROT 10.60 mg/L High 0.0-3.0 [facility] Comment on above: Order Comment: 208 Performed By: #### L 101.9900, L100.0100, L501.8820, L501.6710, L500.4050 ####[facility] [address] [place], [address] Carbon dioxide, total [Moles /volume] in Central venous bloodOrdered By: Kelli Salgado on 11-07-2024 CO2 [Moles/Vol] 27.4 mmol/L 21.0-32.0 [facility] Chloride assayOrdered By: Chris Salgado on 11-07-2024 Chloride [Moles/Vol] 101 mmol/L 98-108 [facility] Comprehensive Metabolic Prof ilon 11-07-2024 Albumin [Mass/Vol] 3.3 g/dL Low 3.4-4.8 [facility] Comment on above: Order Comment: 208 Performed By: #### L 101.9900, L100.0100, L501.8820, L501.6710, L500.4050 ####[facility] [address] [place], [address] Albumin/Globulin [Mass ratio] 0.9 {ratio} Normal 0.9-2.4 [facility] Comment on above: Order Comment: 208 Performed By: #### L 101.9900, L100.0100, L501.8820, L501.6710, L500.4050 ####[facility] [address] [place], [address] ALK PHOS 111 U/L Normal 40-129 [facility] Comment on above: Order Comment: 208 Performed By: #### L 101.9900, L100.0100, L501.8820, L501.6710, L500.4050 ####[facility] [address] [place], [address] ALT [Catalytic activity/Vol] 26 U/L Normal <=46 [facility] Comment on above: Order Comment: 208 Performed By: #### L 101.9900, L100.0100, L501.8820, L501.6710, L500.4050 ####[facility] [address] [place], [address] AST [Catalytic activity/Vol] 34 U/L Normal <=37 [facility] Comment on above: Order Comment: 208 Performed By: #### L 101.9900, L100.0100, L501.8820, L501.6710, L500.4050 ####[facility] [address] [place], [address] Bilirubin [Mass/Vol] 0.51 mg/dL Normal 0.00-1.30 [facility] Comment on above: Order Comment: 208 Performed By: #### L 101.9900, L100.0100, L501.8820, L501.6710, L500.4050 ####[facility] [address] [place], [address] BUN/CRE 38.8 RATIO High 10-20 [facility] Comment on above: Order Comment: 208 Performed By: #### L 101.9900, L100.0100, L501.8820, L501.6710, L500.4050 ####[facility] [address] [place], [address] Calcium [Mass/Vol] 9.8 mg/dL Normal 7.6-11.0 [facility] Comment on above: Order Comment: 208 Performed By: #### L 101.9900, L100.0100, L501.8820, L501.6710, L500.4050 ####[facility] [address] [place], [address] Chloride [Moles/Vol] 101 mmol/L Normal 98-108 [facility] Comment on above: Order Comment: 208 Performed By: #### L 101.9900, L100.0100, L501.8820, L501.6710, L500.4050 ####[facility] [address] [place], [address] CO2 [Moles/Vol] 27.4 mmol/L Normal 21.0-32.0 [facility] Comment on above: Order Comment: 208 Performed By: #### L 101.9900, L100.0100, L501.8820, L501.6710, L500.4050 ####[facility] [address] [place], [address] Creatinine [Mass/Vol] 0.66 mg/dL Low 0.70-1.20 [facility] Comment on above: Order Comment: 208 Performed By: #### L 101.9900, L100.0100, L501.8820, L501.6710, L500.4050 ####[facility] [address] [place], [address] GAP 11 Normal 5-15 [facility] Comment on above: Order Comment: 208 Performed By: #### L 101.9900, L100.0100, L501.8820, L501.6710, L500.4050 ####[facility] [address] [place], [address] GFR/1.73 sq M.predicted among non-blacks MDRD (S/P/Bld) [Vol rate/Area] 101 mL/min/{1.73_m2} Normal >60 [facility] Comment on above: Order Comment: 208 Result Comment: mL/m in/1.73m2 CKD-EPI Creatinine Equation (2020) Performed By: #### L 101.9900, L100.0100, L501.8820, L501.6710, L500.4050 ####[facility] [address] [place], [address] Globulin (S) [Mass/Vol] 3.5 g/dL Normal 2.2-4.2 [facility] Comment on above: Order Comment: 208 Performed By: #### L 101.9900, L100.0100, L501.8820, L501.6710, L500.4050 ####[facility] [address] [place], [address] Glucose [Mass/Vol] 132 mg/dL High 70-99 [facility] Comment on above: Order Comment: 208 Performed By: #### L 101.9900, L100.0100, L501.8820, L501.6710, L500.4050 ####[facility] [address] [place], [address] Potassium [Moles/Vol] 4.2 mmol/L Normal 3.3-5.1 [facility] Comment on above: Order Comment: 208 Performed By: #### L 101.9900, L100.0100, L501.8820, L501.6710, L500.4050 ####[facility] [address] [place], [address] Sodium [Moles/Vol] 140 mmol/L Normal 133-145 [facility] Comment on above: Order Comment: 208 Performed By: #### L 101.9900, L100.0100, L501.8820, L501.6710, L500.4050 ####[facility] [address] [place], [address] T PROT 6.9 g/dL Normal 5.9-8.4 [facility] Comment on above: Order Comment: 208 Performed By: #### L 101.9900, L100.0100, L501.8820, L501.6710, L500.4050 ####[facility] [address] [place], [address] Urea nitrogen [Mass/Vol] 26 mg/dL High 4-19 [facility] Comment on above: Order Comment: 208 Performed By: #### L 101.9900, L100.0100, L501.8820, L501.6710, L500.4050 ####[facility] [address] [place], [address] Eosinophil percentageOrdered By: Kelli Salgado on 11-07-2024 Eosinophils/100 WBC (Bld) 5.5 % High 0-5 [facility] Erythrocyte Sed Rateon 11-07 SED RATE 41 mm/hr High 0-20 [facility] Comment on above: Order Comment: 208 Performed By: #### L 101.9900, L100.0100, L501.8820, L501.6710, L500.4050 ####[facility] [address] [place], [address] Erythrocyte distribution wid th ratioOrdered By: Kelli Salgado on 11-07-2024 Erythrocyte distribution width (RBC) [Ratio] 14.1 % 11.6-14.6 [facility] Erythrocyte distribution wid th standard deviationOrdered By: Kelli Salgado on 11-07-2024 Erythrocyte distribution width (RBC) [Ratio] 41.3 fl 35.1-43.9 [facility] Erythrocyte sedimentation ra teOrdered By: Kelli Salgado on 11-07-2024 ESR (Bld) [Velocity] 41 mm/h High 0-20 [facility] Glomerular filtration rate ( GFR) estimation/1.73 sq m using serum, plasma, or whole bOrdered By: Kelli Salgado on 11-07-2024 GFR/1.73 sq M.predicted among non-blacks MDRD (S/P/Bld) [Vol rate/Area] 101 mL/min/{1.73_m2} >60 [facility] Comment on above: mL/min/1.73m2 CKD-EP I Creatinine Equation (2020) Hematocrit Auto (Bld) [Volum e fraction]Ordered By: Kelli Salgado on 11-07-2024 Hematocrit (Bld) [Volume fraction] 36.4 % Low 40-54 [facility] Hemoglobin measurementOrdere d By: Kelli Salgado on 11-07-2024 Hemoglobin (Bld) [Mass/Vol] 11.8 g/dL Low 13.0-16.5 [facility] Immature granulocytes/100 WB C Auto (Bld)Ordered By: Kelli Salgado on 11-07-2024 Immature granulocytes/100 WBC (Bld) 0.300 % 0.0-0.9 [facility] Comment on above: IG% - Immature Granu locytes (promyelocytes, myelocytes and metamyelocytes) > 1% indicates that a LEFT SHIFT is Present. Laboratory - Chemistry and C hemistry - challengeOrdered By: Kelli Salgado on 11-07-2024 AST [Catalytic activity/Vol] 34 U/L <38 [facility] MCV (mean corpuscular volume ) determinationOrdered By: Kelli Salgado on 11-07-2024 MCV (RBC) [Entitic vol] 81.1 fL 80-94 [facility] Mean corpuscular hemoglobin (MCH) determinationOrdered By: Kelli Salgado on 11-07-2024 MCH (RBC) [Entitic mass] 26.3 pg Low 27.0-32.0 [facility] Mean corpuscular hemoglobin concentration (MCHC) determinationOrdered By: Kelli Salgado on 11-07-2024 MCHC (RBC) [Mass/Vol] 32.4 g/dL 32-36 [facility] Mean platelet volume determi nationOrdered By: Kelli Salgado on 11-07-2024 Platelet mean volume (Bld) [Entitic vol] 10.8 fL 6.2-12.0 [facility] Monocyte percentageOrdered B y: Kelli Salgado on 11-07-2024 Monocytes/100 WBC (Bld) 6.9 % 0-10 [facility] Neutrophil percentageOrdered By: Kelli Salgado on 11-07-2024 Neutrophils/100 WBC (Bld) 50.0 % 47-70 [facility] No Panel InformationOrdered By: Kelli Salgado on 11-07-2024 34 U/L <38 [facility] Nucleated red blood cell per centageOrdered By: Kelli Salgado on 11-07-2024 Nucleated RBC/100 WBC (Bld) [Ratio] 0 % 0-5 [facility] Platelet countOrdered By: Chris Salgado on 11-07-2024 Platelets (Bld) [#/Vol] 239 10*3/uL 150-450 [facility] Potassium measurement (mass/ volume)Ordered By: Kelli Salgado on 11-07-2024 Potassium (Unsp spec) [Mass/Vol] 4.2 mmol/L 3.3-5.1 [facility] RBC Auto (Bld) [#/Vol]Ordere d By: Kelli Salgado on 11-07-2024 RBC (Bld) [#/Vol] 4.49 10*6/uL Low 4.6-6.2 [facility] Serum creatinine measurement (mass/volume)Ordered By: Kelli Salgado on 11-07-2024 Creatinine [Mass/Vol] 0.66 mg/dL Low 0.70-1.20 [facility] Serum globulin measurementOr dered By: Kelli Salgado on 11-07-2024 Globulin (S) [Mass/Vol] 3.5 g/dL 2.2-4.2 [facility] Serum glucose measurement (m ass/volume)Ordered By: Kelli Salgado on 11-07-2024 Glucose [Mass/Vol] 132 mg/dL High 70-99 [facility] Serum or plasma C reactive p rotein measurement (mass/volume)Ordered By: Kelli Salgado on 11-07-2024 CRP [Mass/Vol] 10.60 mg/L High 0.0-3.0 [facility] Serum or plasma alanine herrmann otransferase (ALT) measurementOrdered By: Kelli Salgado on 11-07-2024 ALT [Catalytic activity/Vol] 26 U/L <47 [facility] Serum or plasma albumin everardo urement (mass/volume)Ordered By: Kelli Salgado on 11-07-2024 Albumin [Mass/Vol] 3.3 g/dL Low 3.4-4.8 [facility] Serum or plasma albumin/glob ulin mass ratioOrdered By: Kelli Salgado on 11-07-2024 Albumin/Globulin [Mass ratio] 0.9 {ratio} 0.9-2.4 [facility] Serum or plasma alkaline kaiser sphatase measurementOrdered By: Kelli Salgado on 11-07-2024 ALP [Catalytic activity/Vol] 111 U/L 40-129 [facility] Serum or plasma calcium everardo urement (mass/volume)Ordered By: Kelli Salgado on 11-07-2024 Calcium [Mass/Vol] 9.8 mg/dL 7.6-11.0 [facility] Serum or plasma urea nitroge n measurement (mass/volume)Ordered By: Kelli Salgado on 11-07-2024 Urea nitrogen [Mass/Vol] 26 mg/dL High 4-19 [facility] Sodium levelOrdered By: Nilay Salgado on 11-07-2024 Sodium [Moles/Vol] 140 mmol/L 133-145 [facility] Total proteinOrdered By: Tawanda Salgado on 11-07-2024 Protein [Mass/Vol] 6.9 g/dL 5.9-8.4 [facility] Trough vancomycin levelOrder ed By: Kelli Salgado on 11-07-2024 Vancomycin trough [Mass/Vol] 17.1 ug/mL High 5.0-15.0 [facility] Comment on above: Recommended goal tro ugh [...] therapy recommended for serious lifethreatening infections include:- Tzrnihhvjn-Jsobhqinyqai-Kswahfaua (Ventilator/Healtcare Associated)-Sepsis PLEASE CONTACT PHARMACY SERVICES (#[id number]) FOR INTERPRETATIONOF RESULTS. Vancomycin, Trough Levelon 0 11-07-2024 VANCO, TROUGH 17.1 ug/mL High 5.0-15.0 [facility] Comment on above: Order Comment: Result Comment: [...] therapy recommended for serious lifethreatening infections include:- Yogarytxzn-Ysdeqoiuwtzz-Zuakbkqrv (Ventilator/Healtcare Associated)-SepsisPLEASE CONTACT PHARMACY SERVICES (#[id number]) FOR INTERPRETATIONOF RESULTS. Performed By: #### L 101.9900, L100.0100, L501.8820, L501.6710, L500.4050 ####[facility] [address] [place], [address] White blood cell (WBC) count Ordered By: Kelli Salgado on 11-07-2024 WBC (Bld) [#/Vol] 6.6 10*3/uL 4.4-11.0 [facility] Trough vancomycin levelOrder ed By: Kelli Salgado on 11-02-2024 Vancomycin trough [Mass/Vol] 14.1 ug/mL 5.0-15.0 [facility] Comment on above: Recommended goal tro ugh [...] therapy recommended for serious lifethreatening infections include:- Eyvdczbuhh-Ozqnciikztwh-Yhtmmvdnh (Ventilator/Healtcare Associated)-Sepsis PLEASE CONTACT PHARMACY SERVICES (#[id number]) FOR INTERPRETATIONOF RESULTS. Vancomycin, Trough Levelon 0 11-02-2024 VANCO, TROUGH 14.1 ug/mL Normal 5.0-15.0 [facility] Comment on above: Order Comment: [id number] Result Comment: [place] mmended goal trough ranges [...] therapy recommended for serious lifethreatening infections include:- Xgjhivsneq-Pognhlmiyylc-Yzdshlksq (Ventilator/Healtcare Associated)-SepsisPLEASE CONTACT PHARMACY SERVICES (#[id number]) FOR INTERPRETATIONOF RESULTS. Performed By: #### L 501.8856 ####[facility] [address] [place], [place], [id number] Anion gap in Serum or Plasma Ordered By: Kelli Salgado on 10-31-2024 Anion gap [Moles/Vol] 10 mmol/L - [facility] BUN/creatinine ratioOrdered By: Kelli Salgado on 10-31-2024 Urea nitrogen/Creatinine [Mass ratio] 34.6 mg/mg High - [facility] Bilirubin, totalOrdered By: Kellidelmer Salgado on 10-31-2024 Bilirubin [Mass/Vol] 0.72 mg/dL 0.00-1.30 [facility] CBC-Complete Blood Cnt No Di ffon 10-31-2024 Erythrocyte distribution width (RBC) [Ratio] 14.1 % Normal 11.6-14.6 [facility] Comment on above: Order Comment: 208.1 Performed By: #### L 500.4050, L100.0500, L101.9900, L501.6710 ####[facility] [address] [place], [address] Hematocrit (Bld) [Volume fraction] 36.4 % Low 40-54 [facility] Comment on above: Order Comment: 208.1 Performed By: #### L 500.4050, L100.0500, L101.9900, L501.6710 ####[facility] [address] [place], [address] Hemoglobin (Bld) [Mass/Vol] 11.9 g/dL Low 13.0-16.5 [facility] Comment on above: Order Comment: 208.1 Performed By: #### L 500.4050, L100.0500, L101.9900, L501.6710 ####[facility] [address] [place], [address] MCH (RBC) [Entitic mass] 26.3 pg Low 27.0-32.0 [facility] Comment on above: Order Comment: 208.1 Performed By: #### L 500.4050, L100.0500, L101.9900, L501.6710 ####[facility] [address] [place], [address] MCHC (RBC) [Mass/Vol] 32.7 g/dL Normal 32-36 [facility] Comment on above: Order Comment: .1 Performed By: #### L 500.4050, L100.0500, L101.9900, L501.6710 ####[facility] [address] [place], [address] MCV (RBC) [Entitic vol] 80.5 fL Normal 80-94 [facility] Comment on above: Order Comment: .1 Performed By: #### L 500.4050, L100.0500, L101.9900, L501.6710 ####[facility] [address] [place], [address] Platelet mean volume (Bld) [Entitic vol] 11.0 fL Normal 6.2-12.0 [facility] Comment on above: Order Comment: 208.1 Performed By: #### L 500.4050, L100.0500, L101.9900, L501.6710 ####[facility] [address] [place], [address] Platelets (Bld) [#/Vol] 215 10*3/uL Normal 150-450 [facility] Comment on above: Order Comment: 208.1 Performed By: #### L 500.4050, L100.0500, L101.9900, L501.6710 ####[facility] [address] [place], [address] RBC (Bld) [#/Vol] 4.52 10*6/uL Low 4.6-6.2 [facility] Comment on above: Order Comment: 208.1 Performed By: #### L 500.4050, L100.0500, L101.9900, L501.6710 ####[facility] [address] [place], [address] RDW SD 40.8 fl Normal 35.1-43.9 [facility] Comment on above: Order Comment: 208.1 Performed By: #### L 500.4050, L100.0500, L101.9900, L501.6710 ####[facility] [address] [place], [address] WBC (Bld) [#/Vol] 8.2 10*3/uL Normal 4.4-11.0 [facility] Comment on above: Order Comment: 208.1 Performed By: #### L 500.4050, L100.0500, L101.9900, L501.6710 ####[facility] [address] [place], [address] CRPon 10-31-2024 C-REACTIVE PROT 17.00 mg/L High 0.0-3.0 [facility] Comment on above: Order Comment: 208.1 Performed By: #### L 500.4050, L100.0500, L101.9900, L501.6710 ####[facility] [address] [place], [address] Carbon dioxide, total [Moles /volume] in Central venous bloodOrdered By: Kelli Salgado on 10-31-2024 CO2 [Moles/Vol] 27.4 mmol/L 21.0-32.0 [facility] Chloride assayOrdered By: Chris Salgado on 10-31-2024 Chloride [Moles/Vol] 99 mmol/L 98-108 [facility] Comprehensive Metabolic Prof ilon 10-31-2024 Albumin [Mass/Vol] 3.2 g/dL Low 3.4-4.8 [facility] Comment on above: Order Comment: 208.1 Performed By: #### L 500.4050, L100.0500, L101.9900, L501.6710 ####[facility] [address] [place], [address] Albumin/Globulin [Mass ratio] 0.9 {ratio} Normal 0.9-2.4 [facility] Comment on above: Order Comment: 208.1 Performed By: #### L 500.4050, L100.0500, L101.9900, L501.6710 ####[facility] [address] [place], [address] ALK PHOS 113 U/L Normal 40-129 [facility] Comment on above: Order Comment: 208.1 Performed By: #### L 500.4050, L100.0500, L101.9900, L501.6710 ####[facility] [address] [place], [address] ALT [Catalytic activity/Vol] 16 U/L Normal <=46 [facility] Comment on above: Order Comment: 208.1 Performed By: #### L 500.4050, L100.0500, L101.9900, L501.6710 ####[facility] [address] [place], [address] AST [Catalytic activity/Vol] 28 U/L Normal <=37 [facility] Comment on above: Order Comment: 208.1 Performed By: #### L 500.4050, L100.0500, L101.9900, L501.6710 ####[facility] [address] [place], [address] Bilirubin [Mass/Vol] 0.72 mg/dL Normal 0.00-1.30 [facility] Comment on above: Order Comment: 208.1 Performed By: #### L 500.4050, L100.0500, L101.9900, L501.6710 ####[facility] [address] [place], [address] BUN/CRE 34.6 RATIO High 10-20 [facility] Comment on above: Order Comment: 208.1 Performed By: #### L 500.4050, L100.0500, L101.9900, L501.6710 ####[facility] [address] [place], [address] Calcium [Mass/Vol] 9.6 mg/dL Normal 7.6-11.0 [facility] Comment on above: Order Comment: 208.1 Performed By: #### L 500.4050, L100.0500, L101.9900, L501.6710 ####[facility] [address] [place], [address] Chloride [Moles/Vol] 99 mmol/L Normal 98-108 [facility] Comment on above: Order Comment: 208.1 Performed By: #### L 500.4050, L100.0500, L101.9900, L501.6710 ####[facility] [address] [place], [address] CO2 [Moles/Vol] 27.4 mmol/L Normal 21.0-32.0 [facility] Comment on above: Order Comment: 208.1 Performed By: #### L 500.4050, L100.0500, L101.9900, L501.6710 ####[facility] [address] [place], [address] Creatinine [Mass/Vol] 0.66 mg/dL Low 0.70-1.20 [facility] Comment on above: Order Comment: 208.1 Performed By: #### L 500.4050, L100.0500, L101.9900, L501.6710 ####[facility] [address] [place], [address] GAP 10 Normal 5-15 [facility] Comment on above: Order Comment: . Performed By: #### L 500.4050, L100.0500, L101.9900, L501.6710 ####[facility] [address] [place], [address] GFR/1.73 sq M.predicted among non-blacks MDRD (S/P/Bld) [Vol rate/Area] 101 mL/min/{1.73_m2} Normal >60 [facility] Comment on above: Order Comment: . Result Comment: mL/m in/1.73m2 CKD-EPI Creatinine Equation (2020) Performed By: #### L 500.4050, L100.0500, L101.9900, L501.6710 ####[facility] [address] [place], [address] Globulin (S) [Mass/Vol] 3.5 g/dL Normal 2.2-4.2 [facility] Comment on above: Order Comment: . Performed By: #### L 500.4050, L100.0500, L101.9900, L501.6710 ####[facility] [address] [place], [address] Glucose [Mass/Vol] 166 mg/dL High 70-99 [facility] Comment on above: Order Comment: .1 Performed By: #### L 500.4050, L100.0500, L101.9900, L501.6710 ####[facility] [address] [place], [address] Potassium [Moles/Vol] 4.3 mmol/L Normal 3.3-5.1 [facility] Comment on above: Order Comment: .1 Performed By: #### L 500.4050, L100.0500, L101.9900, L501.6710 ####[facility] [address] [place], [address] Sodium [Moles/Vol] 136 mmol/L Normal 133-145 [facility] Comment on above: Order Comment: 208.1 Performed By: #### L 500.4050, L100.0500, L101.9900, L501.6710 ####[facility] [address] [place], [address] T PROT 6.7 g/dL Normal 5.9-8.4 [facility] Comment on above: Order Comment: 208.1 Performed By: #### L 500.4050, L100.0500, L101.9900, L501.6710 ####[facility] [address] [place], [address] Urea nitrogen [Mass/Vol] 23 mg/dL High 4-19 [facility] Comment on above: Order Comment: 208.1 Performed By: #### L 500.4050, L100.0500, L101.9900, L501.6710 ####[facility] [address] [place], [address] Erythrocyte Sed Rateon 10-31 SED RATE 45 mm/hr High 0-20 [facility] Comment on above: Order Comment: 208.1 Performed By: #### L 500.4050, L100.0500, L101.9900, L501.6710 ####[facility] [address] [place], [address] Erythrocyte distribution wid th ratioOrdered By: Kelli Salgado on 10-31-2024 Erythrocyte distribution width (RBC) [Ratio] 14.1 % 11.6-14.6 [facility] Erythrocyte distribution wid th standard deviationOrdered By: Kelli Salgado on 10-31-2024 Erythrocyte distribution width (RBC) [Ratio] 40.8 fl 35.1-43.9 [facility] Erythrocyte sedimentation ra teOrdered By: Kelli Salgado on 10-31-2024 ESR (Bld) [Velocity] 45 mm/h High 0-20 [facility] Glomerular filtration rate ( GFR) estimation/1.73 sq m using serum, plasma, or whole bOrdered By: Kelli Salgado on 10-31-2024 GFR/1.73 sq M.predicted among non-blacks MDRD (S/P/Bld) [Vol rate/Area] 101 mL/min/{1.73_m2} >60 [facility] Comment on above: mL/min/1.73m2 CKD-EP I Creatinine Equation (2020) Hematocrit Auto (Bld) [Volum e fraction]Ordered By: Kelli Salgado on 10-31-2024 Hematocrit (Bld) [Volume fraction] 36.4 % Low 40-54 [facility] Hemoglobin measurementOrdere d By: Kelli Salgado on 10-31-2024 Hemoglobin (Bld) [Mass/Vol] 11.9 g/dL Low 13.0-16.5 [facility] Laboratory - Chemistry and C hemistry - challengeOrdered By: Kelli Salgado on 10-31-2024 AST [Catalytic activity/Vol] 28 U/L <38 [facility] MCV (mean corpuscular volume ) determinationOrdered By: Kelli Salgado on 10-31-2024 MCV (RBC) [Entitic vol] 80.5 fL 80-94 [facility] Mean corpuscular hemoglobin (MCH) determinationOrdered By: Kelli Salgado on 10-31-2024 MCH (RBC) [Entitic mass] 26.3 pg Low 27.0-32.0 [facility] Mean corpuscular hemoglobin concentration (MCHC) determinationOrdered By: Kelli Salgado on 10-31-2024 MCHC (RBC) [Mass/Vol] 32.7 g/dL 32-36 [facility] Mean platelet volume determi nationOrdered By: Kelli Salgado on 10-31-2024 Platelet mean volume (Bld) [Entitic vol] 11.0 fL 6.2-12.0 [facility] No Panel InformationOrdered By: Kelli Salgado on 10-31-2024 28 U/L <38 [facility] Platelet countOrdered By: Chrsi Salgado on 10-31-2024 Platelets (Bld) [#/Vol] 215 10*3/uL 150-450 [facility] Potassium measurement (mass/ volume)Ordered By: Kelli Salgado on 10-31-2024 Potassium (Unsp spec) [Mass/Vol] 4.3 mmol/L 3.3-5.1 [facility] RBC Auto (Bld) [#/Vol]Ordere d By: Kelli Salgado on 10-31-2024 RBC (Bld) [#/Vol] 4.52 10*6/uL Low 4.6-6.2 [facility] Serum creatinine measurement (mass/volume)Ordered By: Kelli Salgado on 10-31-2024 Creatinine [Mass/Vol] 0.66 mg/dL Low 0.70-1.20 [facility] Serum globulin measurementOr dered By: Kelli Salgado on 10-31-2024 Globulin (S) [Mass/Vol] 3.5 g/dL 2.2-4.2 [facility] Serum glucose measurement (m ass/volume)Ordered By: Kelli Salgado on 10-31-2024 Glucose [Mass/Vol] 166 mg/dL High 70-99 [facility] Serum or plasma C reactive p rotein measurement (mass/volume)Ordered By: Kelli Salgado on 10-31-2024 CRP [Mass/Vol] 17.00 mg/L High 0.0-3.0 [facility] Serum or plasma alanine herrmann otransferase (ALT) measurementOrdered By: Kelli Salgado on 10-31-2024 ALT [Catalytic activity/Vol] 16 U/L <47 [facility] Serum or plasma albumin everardo urement (mass/volume)Ordered By: Kelli Salgado on 10-31-2024 Albumin [Mass/Vol] 3.2 g/dL Low 3.4-4.8 [facility] Serum or plasma albumin/glob ulin mass ratioOrdered By: Kelli Salgado on 10-31-2024 Albumin/Globulin [Mass ratio] 0.9 {ratio} 0.9-2.4 [facility] Serum or plasma alkaline kaiser sphatase measurementOrdered By: Kelli Salgado on 10-31-2024 ALP [Catalytic activity/Vol] 113 U/L 40-129 [facility] Serum or plasma calcium everardo urement (mass/volume)Ordered By: Kelli Salgado on 10-31-2024 Calcium [Mass/Vol] 9.6 mg/dL 7.6-11.0 [facility] Serum or plasma urea nitroge n measurement (mass/volume)Ordered By: Kelli Salgado on 10-31-2024 Urea nitrogen [Mass/Vol] 23 mg/dL High 4-19 [facility] Sodium levelOrdered By: Nilay Salgado on 10-31-2024 Sodium [Moles/Vol] 136 mmol/L 133-145 [facility] Total proteinOrdered By: Tawanda Salgado on 10-31-2024 Protein [Mass/Vol] 6.7 g/dL 5.9-8.4 [facility] White blood cell (WBC) count Ordered By: Kelli Salgado on 10-31-2024 WBC (Bld) [#/Vol] 8.2 10*3/uL 4.4-11.0 [facility] GLUCOSE POCon 10-30-2024 Glucose [Mass/Vol] 170 mg/dL 70 - 179 mg/dL [facility] POC Sample Type CAPBL [facility] CBC,PLATELETSon 10-29-2024 Erythrocyte distribution width (RBC) [Ratio] 13.9 % 10.9 - 14.3 % [facility] Hematocrit (Bld) [Volume fraction] 37.1 % Low 39.6 - 48.8 % [facility] Hemoglobin (Bld) [Mass/Vol] 11.8 g/dL Low 13.4 - 16.8 g/dL [facility] Interpretation and review of laboratory results Abnormal [facility] MCH (RBC) [Entitic mass] 25.8 pg Low 26. 1 - 33.3 pg [facility] MCHC (RBC) [Mass/Vol] 31.8 g/dL Low 31.9 - 36.5 g/dL [facility] MCV (RBC) [Entitic vol] 81.2 fL 79.0 - 94.5 fL [facility] Platelet mean volume (Bld) [Entitic vol] 10.9 fL 8.7 - 12.3 fL [facility] Platelets (Bld) [#/Vol] 216 10*3/uL 146 - 337 K/uL [facility] RBC (Bld) [#/Vol] 4.57 10*6/uL [facility] WBC (Bld) [#/Vol] 8 10*3/uL 3.73 - 10. 10 K/uL [facility] Hematocrit (Bld) [Volume fraction] 37.1 % Low 39.6-48.8 [place] Comment on above: Performed By: #### C HM7 #### [facility] (DEFAULT) [address] [place] [address] Hemoglobin (Bld) [Mass/Vol] 11.8 g/dL Low 13.4-16.8 [facility] Comment on above: Performed By: #### C HM7 #### [facility] (DEFAULT) [address] [place] [address] MCV (RBC) [Entitic vol] 81.2 fL Normal 79.0-94.5 O [facility] Comment on above: Performed By: #### C HM7 #### [facility] (DEFAULT) [address] [place] [address] Mean Cell Hgb 25.8 pg Low 26.1-33.3 [place] Comment on above: Performed By: #### C HM7 #### [facility] (DEFAULT) [address] [place] [address] Mean Cell Hgb Conc 31.8 g/dL Low 31.9-36.5 [facility] Comment on above: Performed By: #### C HM7 #### [facility] (DEFAULT) [address] [place] [address] Platelet mean volume (Bld) [Entitic vol] 10.9 fL Normal 8.7-12.3 [facility] Comment on above: Performed By: #### Sara HM7 #### [facility] (DEFAULT) [address] [place] [address] Platelets (Bld) [#/Vol] 216 10*3/uL Normal 146-337 [facility] Comment on above: Performed By: #### Sara HM7 #### [facility] (DEFAULT) [address] [place] [address] RBC (Bld) [#/Vol] 4.57 10*6/uL Normal 4.38-5.83 [facility] Comment on above: Performed By: #### Sara HM7 #### [facility] (DEFAULT) [address] [place] [address] RBC Distribution 13.9 % Normal 10.9-14.3 [facility] Comment on above: Performed By: #### C HM7 #### [facility] (DEFAULT) [address] [place] [address] WBC (Bld) [#/Vol] 8.00 10*3/uL Normal 3.73-10.10 [place] Comment on above: Performed By: #### Sara HM7 #### [facility] (DEFAULT) [address] [place] [address] CHEM 7 (LYTES,BUN,CREA,GLUC) on 10-29-2024 Anion gap [Moles/Vol] 11 mmol/L 7 - 17 mmol/L [facility] Chloride [Moles/Vol] 99 mmol/L 98 - 10 8 mmol/L [facility] CO2 [Moles/Vol] 32 mmol/L High 21 - 31 mmol/L [facility] Creatinine [Mass/Vol] 0.58 mg/dL Low 0.70 - 1.30 mg/dL [facility] eGFR, CKD-EPI, Male - PINF [facility] Glucose [Mass/Vol] 152 mg/dL 70 - 179 mg/dL [facility] Interpretation and review of laboratory results Abnormal [facility] Osmolality Calc [Osmolality] 297 [facility] Potassium [Moles/Vol] 3.9 mmol/L 3.5 - 5.0 mmol/L [facility] Sodium [Moles/Vol] 138 mmol/L 135 - 145 mmol/L [facility] Urea nitrogen [Mass/Vol] 26 mg/dL High 7 - 25 mg/d L [facility] Urea nitrogen/Creatinine [Mass ratio] 45 mg/mg [facility] Anion gap [Moles/Vol] 11 mmol/L Normal 7-17 [facility] Comment on above: Performed By: #### X M #### [facility] (DEFAULT) [address] [address] Chloride [Moles/Vol] 99 mmol/L Normal 98-108 [place] Comment on above: Performed By: #### X M #### [facility] (DEFAULT) [address] [place] [address] CO2 [Moles/Vol] 32 mmol/L High 21-31 [facility] Comment on above: Performed By: #### X M #### [facility] (DEFAULT) [address] [place] [address] Creatinine [Mass/Vol] 0.58 mg/dL Low 0.70-1.30 [facility] Comment on above: Performed By: #### X M #### [facility] (DEFAULT) [address] [address] eGFR, CKD-EPI, Male > Normal >=60 [place] Comment on above: Result Comment: Repo rted eGFR is based on the CKD-EPI 2020 equation using creatinine, age, and sex. Performed By: #### X M #### [facility] (DEFAULT) [address] [place] [address] Glucose [Mass/Vol] 152 mg/dL Normal Nonfastin -179 mg/dL; Fastin-99 [place] Comment on above: Performed By: #### X M #### [facility] (DEFAULT) [address] [place] [address] Osmolality [Osmolality] 297 mosm/kg Normal 278-305 [place] Comment on above: Performed By: #### X M #### [facility] (DEFAULT) [address] [place] [address] Potassium [Moles/Vol] 3.9 mmol/L Normal 3.5-5.0 [facility] Comment on above: Performed By: #### X M #### [facility] (DEFAULT) [address] [place] [address] Sodium [Moles/Vol] 138 mmol/L Normal 135-145 [facility] Comment on above: Performed By: #### X M #### [facility] (DEFAULT) [address] [place] [address] Urea nitrogen [Mass/Vol] 26 mg/dL High 7-25 [place] Comment on above: Performed By: #### X M #### [facility] (DEFAULT) [address] [place] [address] Urea nitrogen/Creatinine [Mass ratio] 45 mg/mg Normal [place] Comment on above: Performed By: #### X M #### [facility] (DEFAULT) [address] [place] [id number] GLUCOSE POCon 10-29-2024 Glucose [Mass/Vol] 182 mg/dL High 70 - 179 mg/dL [facility] Interpretation and review of laboratory results Abnormal [facility] POC Sample Type CAPBL [facility] Glucose [Mass/Vol] 191 mg/dL High 70 - 179 mg[facility] Interpretation and review of laboratory results Abnormal [facility] POC Sample Type CAPBL [facility] Glucose [Mass/Vol] 214 mg/dL High 70 - 179 mg/dL [facility] Interpretation and review of laboratory results Abnormal [facility] POC Sample Type CAPBL [facility] Glucose [Mass/Vol] 145 mg/dL 70 - 179 mg/dL [facility] POC Sample Type CAPBL [facility] GLUCOSE POCon 10-28-2024 Glucose [Mass/Vol] 168 mg/dL 70 - 179 mg/dL [facility] POC Sample Type CAPBL [facility] Glucose [Mass/Vol] 165 mg/dL 70 - 179 mg/dL [facility] POC Sample Type CAPBL [facility] Glucose [Mass/Vol] 218 mg/dL High 70 - 179 mg/dL [facility] Interpretation and review of laboratory results Abnormal [facility] POC Sample Type CAPBL [facility] Glucose [Mass/Vol] 179 mg/dL 70 - 179 mg/dL [facility] POC Sample Type CAPBL [facility] GLUCOSE POCon 10-27-2024 Glucose [Mass/Vol] 207 mg/dL High 70 - 179 mg/dL [facility] Interpretation and review of laboratory results Abnormal [facility] POC Sample Type CAPBL [facility] Glucose [Mass/Vol] 164 mg/dL 70 - 179 mg/dL [facility] Glucose [Mass/Vol] 208 mg/dL High 70 - 179 mg/dL [facility] Interpretation and review of laboratory results Abnormal [facility] POC Sample Type CAPBL [facility] Glucose [Mass/Vol] 193 mg/dL High 70 - 179 mg/dL [facility] Interpretation and review of laboratory results Abnormal [facility] POC Sample Type CAPBL [facility] VANCOMYCIN LEVEL, TROUGH (MT E DRUG LEVEL)on 10-27-2024 Interpretation and review of laboratory results Normal [facility] Vancomycin trough [Mass/Vol] 15.6 ug/mL [facility] Vancomycin, Trough 15.6 mcg/mL Normal Therapeut ic Range: 10.0-20.0 mcg/mL [place] Comment on above: Order Comment: Pleas e draw level at specified interval PRIOR to next dose. Performed By: #### V ANCTR #### [facility] (DEFAULT) [address] [place] [address] CBC,PLATELETSon 10-26-2024 Erythrocyte distribution width (RBC) [Ratio] 13.5 % 10.9 - 14.3 % [facility] Hematocrit (Bld) [Volume fraction] 37.7 % Low 39.6 - 48.8 % [facility] Hemoglobin (Bld) [Mass/Vol] 12.5 g/dL Low 13.4 - 16.8 g/dL [facility] Interpretation and review of laboratory results Abnormal [facility] MCH (RBC) [Entitic mass] 26.8 pg 26. 1 - 33.3 pg [facility] MCHC (RBC) [Mass/Vol] 33.2 g/dL 31.9 - 36.5 g/dL [facility] MCV (RBC) [Entitic vol] 80.7 fL 79.0 - 94.5 fL [facility] Platelet mean volume (Bld) [Entitic vol] 10.3 fL 8.7 - 12.3 fL [facility] Platelets (Bld) [#/Vol] 229 10*3/uL 146 - 337 K/uL [facility] RBC (Bld) [#/Vol] 4.67 10*6/uL [facility] WBC (Bld) [#/Vol] 8.37 10*3/uL 3.73 - 10. 10 K/uL [facility] Hematocrit (Bld) [Volume fraction] 37.7 % Low 39.6-48.8 [place] Comment on above: Performed By: #### X M #### [facility] (DEFAULT) [address] [address] Hemoglobin (Bld) [Mass/Vol] 12.5 g/dL Low 13.4-16.8 [place] Comment on above: Performed By: #### X M #### [facility] (DEFAULT) [address] [address] MCV (RBC) [Entitic vol] 80.7 fL Normal 79.0-94.5 O [facility] Comment on above: Performed By: #### X M #### [facility] (DEFAULT) [address] [address] Mean Cell Hgb 26.8 pg Normal 26.1-33.3 [place] Comment on above: Performed By: #### X M #### [facility] (DEFAULT) [address] [address] Mean Cell Hgb Conc 33.2 g/dL Normal 31.9-36.5 [facility] Comment on above: Performed By: #### X M #### [facility] (DEFAULT) [address] [address] Platelet mean volume (Bld) [Entitic vol] 10.3 fL Normal 8.7-12.3 [place] Comment on above: Performed By: #### X M #### [facility] (DEFAULT) [address] [place] [address] Platelets (Bld) [#/Vol] 229 10*3/uL Normal 146-337 [place] Comment on above: Performed By: #### X M #### [facility] (DEFAULT) [address] [place] [address] RBC (Bld) [#/Vol] 4.67 10*6/uL Normal 4.38-5.83 [place] Comment on above: Performed By: #### X M #### [facility] (DEFAULT) [address] [place] [address] RBC Distribution 13.5 % Normal 10.9-14.3 [facility] Comment on above: Performed By: #### X M #### [facility] (DEFAULT) [address] [place] [address] WBC (Bld) [#/Vol] 8.37 10*3/uL Normal 3.73-10.10 [place] Comment on above: Performed By: #### X M #### [facility] (DEFAULT) [address] [place] [address] CHEM 7 (LYTES,BUN,CREA,GLUC) on 10-26-2024 Anion gap [Moles/Vol] 11 mmol/L 7 - 17 mmol/L [facility] Chloride [Moles/Vol] 99 mmol/L 98 - 10 8 mmol/L [facility] CO2 [Moles/Vol] 30 mmol/L 21 - 31 mmol/L [facility] Creatinine [Mass/Vol] 0.63 mg/dL Low 0.70 - 1.30 mg/dL [facility] eGFR, CKD-EPI, Male - PINF [facility] Glucose [Mass/Vol] 189 mg/dL High 70 - 179 mg/dL [facility] Interpretation and review of laboratory results Abnormal [facility] Osmolality Calc [Osmolality] 296 [facility] Potassium [Moles/Vol] 4.3 mmol/L 3.5 - 5.0 mmol/L [facility] Sodium [Moles/Vol] 136 mmol/L 135 - 145 mmol/L [facility] Urea nitrogen [Mass/Vol] 24 mg/dL 7 - 25 mg/d L [facility] Urea nitrogen/Creatinine [Mass ratio] 38 mg/mg [facility] Anion gap [Moles/Vol] 11 mmol/L Normal 7-17 [facility] Comment on above: Performed By: #### C HM7 #### [facility] (DEFAULT) [address] [place] [address] Chloride [Moles/Vol] 99 mmol/L Normal 98-108 [place] Comment on above: Performed By: #### C HM7 #### [facility] (DEFAULT) [address] [place] [address] CO2 [Moles/Vol] 30 mmol/L Normal 21-31 [facility] Comment on above: Performed By: #### C HM7 #### [facility] (DEFAULT) [address] [place] [address] 11828 Creatinine [Mass/Vol] 0.63 mg/dL Low 0.70-1.30 [facility] Comment on above: Performed By: #### C HM7 #### [facility] (DEFAULT) [address] [place] [address]390 eGFR, CKD-EPI, Male > Normal >=60 [place] Comment on above: Result Comment: Repo rted eGFR is based on the CKD-EPI 2020 equation using creatinine, age, and sex. Performed By: #### C HM7 #### [facility] (DEFAULT) [address] [place] [address] Glucose [Mass/Vol] 189 mg/dL High Nonfastin -179 mg/dL; Fastin-99 [place] Comment on above: Performed By: #### C HM7 #### [facility] (DEFAULT) [address] [place] [address] Osmolality [Osmolality] 296 mosm/kg Normal 278-305 [place] Comment on above: Performed By: #### C HM7 #### [facility] (DEFAULT) [address] [place] [address] Potassium [Moles/Vol] 4.3 mmol/L Normal 3.5-5.0 [facility] Comment on above: Performed By: #### C HM7 #### [facility] (DEFAULT) [address] [place] [address] Sodium [Moles/Vol] 136 mmol/L Normal 135-145 [facility] Comment on above: Performed By: #### C HM7 #### [facility] (DEFAULT) [address] [place] [address] Urea nitrogen [Mass/Vol] 24 mg/dL Normal 7-25 [place] Comment on above: Performed By: #### C HM7 #### [facility] (DEFAULT) [address] [place] [address] Urea nitrogen/Creatinine [Mass ratio] 38 mg/mg Normal [place] Comment on above: Performed By: #### C HM7 #### [facility] (DEFAULT) [address] [place] [address] HEAD WITHOUT CONTRASTon 0 10-26-2024 CT [...] the associated mass effect appear unchanged. Normal [place] CT Head WO contraston 2024 RADIOLOGY RADIOLOGY [facility] contrastOrdered B y: Jeremias Christensen on 10-26-2024 [facility] Work Phone: ECGOrdered By: Tressa Cruz ba on 10-26-2024 [facility] Work Phone: GLUCOSE POCon 10-26-2024 Glucose [Mass/Vol] 180 mg/dL High 70 - 179 mg/dL [facility] Interpretation and review of laboratory results Abnormal [facility] POC Sample Type [facility] Glucose [Mass/Vol] 167 mg/dL 70 - 179 mg/dL [facility] POC Sample Type [facility] Glucose [Mass/Vol] 223 mg/dL High 70 - 179 mg/dL [facility] Interpretation and review of laboratory results Abnormal [facility] POC Sample Type [facility] No Panel InformationOrdered By: Unassigned Pacs on 10-26-2024 [facility] Work Phone: CBC,PLATELETSon 10-25-2024 Erythrocyte distribution width (RBC) [Ratio] 13.4 % 10.9 - 14.3 % [facility] Hematocrit (Bld) [Volume fraction] 37.7 % Low 39.6 - 48.8 % [facility] Hemoglobin (Bld) [Mass/Vol] 12.5 g/dL Low 13.4 - 16.8 g/dL [facility] Interpretation and review of laboratory results Abnormal [facility] MCH (RBC) [Entitic mass] 26.4 pg 26. 1 - 33.3 pg [facility] MCHC (RBC) [Mass/Vol] 33.2 g/dL 31.9 - 36.5 g/dL [facility] MCV (RBC) [Entitic vol] 79.7 fL 79.0 - 94.5 fL [facility] Platelet mean volume (Bld) [Entitic vol] 9.7 fL 8.7 - 12.3 fL [facility] Platelets (Bld) [#/Vol] 244 10*3/uL 146 - 337 K/uL [facility] RBC (Bld) [#/Vol] 4.73 10*6/uL [facility] WBC (Bld) [#/Vol] 8.14 10*3/uL 3.73 - 10. 10 K/uL [facility] Hematocrit (Bld) [Volume fraction] 37.7 % Low 39.6-48.8 [place] Comment on above: Performed By: #### V ANCTR #### [facility] (DEFAULT) [address] [place] [address] Hemoglobin (Bld) [Mass/Vol] 12.5 g/dL Low 13.4-16.8 [place] Comment on above: Performed By: #### V ANCTR #### [facility] (DEFAULT) [address] [place] [address] MCV (RBC) [Entitic vol] 79.7 fL Normal 79.0-94.5 O [facility] Comment on above: Performed By: #### V ANCTR #### [facility] (DEFAULT) [address] [place] [address] Mean Cell Hgb 26.4 pg Normal 26.1-33.3 [place] Comment on above: Performed By: #### V ANCTR #### [facility] (DEFAULT) [address] [place] [address] Mean Cell Hgb Conc 33.2 g/dL Normal 31.9-36.5 [facility] Comment on above: Performed By: #### V ANCTR #### [facility] (DEFAULT) [address] [place] [address] Platelet mean volume (Bld) [Entitic vol] 9.7 fL Normal 8.7-12.3 [place] Comment on above: Performed By: #### V ANCTR #### [facility] (DEFAULT) [address] [address] Platelets (Bld) [#/Vol] 244 10*3/uL Normal 146-337 [place] Comment on above: Performed By: #### V ANCTR #### [facility] (DEFAULT) [address] [address] RBC (Bld) [#/Vol] 4.73 10*6/uL Normal 4.38-5.83 [place] Comment on above: Performed By: #### V ANCTR #### [facility] (DEFAULT) [address] [address] RBC Distribution 13.4 % Normal 10.9-14.3 [facility] Comment on above: Performed By: #### V ANCTR #### [facility] (DEFAULT) [address] [place] [address] WBC (Bld) [#/Vol] 8.14 10*3/uL Normal 3.73-10.10 [place] Comment on above: Performed By: #### V ANCTR #### [facility] (DEFAULT) [address] [address] CHEM 7 (LYTES,BUN,CREA,GLUC) on 10-25-2024 Anion gap [Moles/Vol] 12 mmol/L 7 - 17 mmol/L [facility] Chloride [Moles/Vol] 97 mmol/L Low 98 - 10 8 mmol/L [facility] CO2 [Moles/Vol] 31 mmol/L 21 - 31 mmol/L [facility] Creatinine [Mass/Vol] 0.61 mg/dL Low 0.70 - 1.30 mg/dL [facility] eGFR, CKD-EPI, Male - PINF [facility] Glucose [Mass/Vol] 150 mg/dL 70 - 179 mg/dL [facility] Interpretation and review of laboratory results Abnormal [facility] Osmolality Calc [Osmolality] 291 [facility] Potassium [Moles/Vol] 4 mmol/L 3.5 - 5.0 mmol/L [facility] Sodium [Moles/Vol] 136 mmol/L 135 - 145 mmol/L [facility] Urea nitrogen [Mass/Vol] 20 mg/dL 7 - 25 mg/d L [facility] Urea nitrogen/Creatinine [Mass ratio] 33 mg/mg [facility] Anion gap [Moles/Vol] 12 mmol/L Normal 7-17 [facility] Comment on above: Performed By: #### X M #### [facility] (DEFAULT) [address] [place] [address] Chloride [Moles/Vol] 97 mmol/L Low 98-108 [place] Comment on above: Performed By: #### X M #### [facility] (DEFAULT) [address] [place] [address] CO2 [Moles/Vol] 31 mmol/L Normal 21-31 [facility] Comment on above: Performed By: #### X M #### [facility] (DEFAULT) [address] [place] [address] Creatinine [Mass/Vol] 0.61 mg/dL Low 0.70-1.30 [facility] Comment on above: Performed By: #### X M #### [facility] (DEFAULT) [address] [place] [address] eGFR, CKD-EPI, Male > Normal >=60 [place] Comment on above: Result Comment: Repo rted eGFR is based on the CKD-EPI 2020 equation using creatinine, age, and sex. Performed By: #### X M #### [facility] (DEFAULT) [address] [place] [address] Glucose [Mass/Vol] 150 mg/dL Normal Nonfastin -179 mg/dL; Fastin-99 [place] Comment on above: Performed By: #### X M #### [facility] (DEFAULT) [address] [place] [address] Osmolality [Osmolality] 291 mosm/kg Normal 278-305 [place] Comment on above: Performed By: #### X M #### [facility] (DEFAULT) [address] [place] [address] Potassium [Moles/Vol] 4.0 mmol/L Normal 3.5-5.0 [facility] Comment on above: Performed By: #### X M #### [facility] (DEFAULT) [address] [place] [address] Sodium [Moles/Vol] 136 mmol/L Normal 135-145 [facility] Comment on above: Performed By: #### X M #### [facility] (DEFAULT) [address] [place] [address] Urea nitrogen [Mass/Vol] 20 mg/dL Normal 7-25 [place] Comment on above: Performed By: #### X M #### [facility] (DEFAULT) [address] [place] [address]77 Urea nitrogen/Creatinine [Mass ratio] 33 mg/mg Normal [place] Comment on above: Performed By: #### X M #### [facility] (DEFAULT) [address] [place] [address] GLUCOSE POCon 10-25-2024 Glucose [Mass/Vol] 181 mg/dL High 70 - 179 mg/dL [facility] Interpretation and review of laboratory results Abnormal [facility] POC [facility] Glucose [Mass/Vol] 224 mg/dL High 70 - 179 mg/dL [facility] Interpretation and review of laboratory results Abnormal [facility] POC Sample Type [facility] Glucose [Mass/Vol] 202 mg/dL High 70 - 179 mg/dL [facility] Interpretation and review of laboratory results Abnormal [facility] POC Sample Type CAPBL [facility] Glucose [Mass/Vol] 207 mg/dL High 70 - 179 mg/dL [facility] Interpretation and review of laboratory results Abnormal [facility] POC Sample Type CAPBL [facility] Glucose [Mass/Vol] 147 mg/dL 70 - 179 mg/dL [facility],PLATE[facility]TSon 10-24-2024 Erythrocyte distribution width (RBC) [Ratio] 13.2 % 10.9 - 14.3 % [facility] Hematocrit (Bld) [Volume fraction] 38.2 % Low 39.6 - 48.8 % [facility] Hemoglobin (Bld) [Mass/Vol] 12.4 g/dL Low 13.4 - 16.8 g/dL [facility] Interpretation and review of laboratory results Abnormal [facility] MCH (RBC) [Entitic mass] 25.6 pg Low 26. 1 - 33.3 pg [facility] MCHC (RBC) [Mass/Vol] 32.5 g/dL 31.9 - 36.5 g/dL [facility] MCV (RBC) [Entitic vol] 78.8 fL Low 79.0 - 94.5 fL [facility] Platelet mean volume (Bld) [Entitic vol] 10 fL 8.7 - 12.3 fL [facility] Platelets (Bld) [#/Vol] 274 10*3/uL 146 - 337 K/uL [facility] RBC (Bld) [#/Vol] 4.85 10*6/uL [facility] WBC (Bld) [#/Vol] 8.14 10*3/uL 3.73 - 10. 10 K/uL [facility] Hematocrit (Bld) [Volume fraction] 38.2 % Low 39.6-48.8 [place] Comment on above: Performed By: #### V ANCTR #### [facility] (DEFAULT) [address] [address] Hemoglobin (Bld) [Mass/Vol] 12.4 g/dL Low 13.4-16.8 [place] Comment on above: Performed By: #### V ANCTR #### [facility] (DEFAULT) [address] [address] MCV (RBC) [Entitic vol] 78.8 fL Low 79.0-94.5 O [facility] Comment on above: Performed By: #### V ANCTR #### [facility] (DEFAULT) [address] [address] Mean Cell Hgb 25.6 pg Low 26.1-33.3 [place] Comment on above: Performed By: #### V ANCTR #### [facility] (DEFAULT) [address] [address] Mean Cell Hgb Conc 32.5 g/dL Normal 31.9-36.5 [facility] Comment on above: Performed By: #### V ANCTR #### [facility] (DEFAULT) [address] [address] Platelet mean volume (Bld) [Entitic vol] 10.0 fL Normal 8.7-12.3 [place] Comment on above: Performed By: #### V ANCTR #### [facility] (DEFAULT) [address] [place] [address] Platelets (Bld) [#/Vol] 274 10*3/uL Normal 146-337 [place] Comment on above: Performed By: #### V ANCTR #### [facility] (DEFAULT) [address] [place] [address] RBC (Bld) [#/Vol] 4.85 10*6/uL Normal 4.38-5.83 [place] Comment on above: Performed By: #### V ANCTR #### [facility] (DEFAULT) [address] [place] [address] RBC Distribution 13.2 % Normal 10.9-14.3 [facility] Comment on above: Performed By: #### V ANCTR #### [facility] (DEFAULT) [address] [place] [address] WBC (Bld) [#/Vol] 8.14 10*3/uL Normal 3.73-10.10 [place] Comment on above: Performed By: #### V ANCTR #### [facility] (DEFAULT) [address] [place] [address] CHEM 7 (LYTES,BUN,CREA,GLUC) on 10-24-2024 Anion gap [Moles/Vol] 11 mmol/L 7 - 17 mmol/L [facility] Chloride [Moles/Vol] 98 mmol/L 98 - 10 8 mmol/L [facility] CO2 [Moles/Vol] 33 mmol/L High 21 - 31 mmol/L [facility] Creatinine [Mass/Vol] 0.57 mg/dL Low 0.70 - 1.30 mg/dL [facility] eGFR, CKD-EPI, Male - PINF [facility] Glucose [Mass/Vol] 160 mg/dL 70 - 179 mg/dL [facility] Interpretation and review of laboratory results Abnormal [facility] Osmolality Calc [Osmolality] 295 [facility] Potassium [Moles/Vol] 4.2 mmol/L 3.5 - 5.0 mmol/L [facility] Sodium [Moles/Vol] 138 mmol/L 135 - 145 mmol/L [facility] Urea nitrogen [Mass/Vol] 18 mg/dL 7 - 25 mg/d L [facility] Urea nitrogen/Creatinine [Mass ratio] 32 mg/mg [facility] Anion gap [Moles/Vol] 11 mmol/L Normal 7-17 [facility] Comment on above: Performed By: #### T YPEC #### [facility] (DEFAULT) [address] [place] [address] Chloride [Moles/Vol] 98 mmol/L Normal 98-108 [place] Comment on above: Performed By: #### T YPEC #### [facility] (DEFAULT) [address] [place] [address] CO2 [Moles/Vol] 33 mmol/L High 21-31 [facility] Comment on above: Performed By: #### T YPEC #### [facility] (DEFAULT) [address] [place] [address] Creatinine [Mass/Vol] 0.57 mg/dL Low 0.70-1.30 [facility] Comment on above: Performed By: #### T YPEC #### [facility] (DEFAULT) [address] [place] [address] eGFR, CKD-EPI, Male > Normal >=60 [place] Comment on above: Result Comment: Repo rted eGFR is based on the CKD-EPI 2020 equation using creatinine, age, and sex. Performed By: #### T YPEC #### [facility] (DEFAULT) [address] [place] [address] Glucose [Mass/Vol] 160 mg/dL Normal Nonfastin -179 mg/dL; Fastin-99 [place] Comment on above: Performed By: #### T YPEC #### [facility] (DEFAULT) [address] [place] [address] Osmolality [Osmolality] 295 mosm/kg Normal 278-305 [place] Comment on above: Performed By: #### T YPEC #### [facility] (DEFAULT) [address] [place] [address] Potassium [Moles/Vol] 4.2 mmol/L Normal 3.5-5.0 [facility] Comment on above: Performed By: #### T YPEC #### [facility] (DEFAULT) [address] [place] [address] Sodium [Moles/Vol] 138 mmol/L Normal 135-145 [facility] Comment on above: Performed By: #### T YPEC #### [facility] (DEFAULT) [address] [place] [address] Urea nitrogen [Mass/Vol] 18 mg/dL Normal 7-25 [place] Comment on above: Performed By: #### T YPEC #### [facility] (DEFAULT) [address] [place] [address] Urea nitrogen/Creatinine [Mass ratio] 32 mg/mg Normal [place] Comment on above: Performed By: #### T YPEC #### [facility] (DEFAULT) [address] [place] [address] GLUCOSE POCon 10-24-2024 Glucose [Mass/Vol] 152 mg/dL 70 - 179 mg/dL [facility] POC Sample Type CAPBL [facility] Glucose [Mass/Vol] 173 mg/dL 70 - 179 mg/dL [facility] POC Sample Type [facility] Glucose [Mass/Vol] 210 mg/dL High 70 - 179 mg/dL [facility] Interpretation and review of laboratory results Abnormal [facility] POC Sample Type [facility] Glucose [Mass/Vol] 168 mg/dL 70 - 179 mg/dL [facility] POC Sample Type CAPBL [facility] HIGH SENSITIVITY TROPONIN I - SINGLE ORDERon 10-24-2024 Troponin I.cardiac High sensitivity method [Mass/Vol] 4 ng/L NINF - 53 ng/L [facility] hs-Troponin I 4 ng/L Normal <53 [place] Comment on above: Order Comment: Acute Coronary Syndrome (ACS): Initial Evaluation and Management:[email or web address] [facility]/sites/ebm/Documents/G uidelines/Acute%20Coronary%20Syndrome.pdf#search=troponin Performed By: #### T YPEC #### [facility] (DEFAULT) [address] [place] [address] NT-PRO B-TYPE NATRIURETIC PE PTIDEon 10-24-2024 Natriuretic peptide.B prohormone N-Terminal IA [Mass/Vol] 242 pg/mL NINF - 540 pg/mL [facility] Natriuretic peptide B (Bld) [Mass/Vol] 242 pg/mL Normal <=540 [place] Comment on above: Performed By: #### Y NTBNP #### [facility] (DEFAULT) [address] [address] No Panel Informationon 10-24 Interpretation and review of laboratory results Normal [facility] Portable XR Chest Viewson RADIOLOGY RADIOLOGY [facility] Radiology Study observation (narrative) [facility] XR CHEST 1 VIEW PORTABLEon 0 10-24-2024 [...] have reviewed and approved this report. Normal [place] CBC,PLATELETSon 10-23-2024 Erythrocyte distribution width (RBC) [Ratio] 13.3 % 10.9 - 14.3 % [facility] Hematocrit (Bld) [Volume fraction] 39.2 % Low 39.6 - 48.8 % [facility] Hemoglobin (Bld) [Mass/Vol] 13.1 g/dL Low 13.4 - 16.8 g/dL [facility] Interpretation and review of laboratory results Abnormal [facility] MCH (RBC) [Entitic mass] 26.4 pg 26. 1 - 33.3 pg [facility] MCHC (RBC) [Mass/Vol] 33.4 g/dL 31.9 - 36.5 g/dL [facility] MCV (RBC) [Entitic vol] 79 fL 79.0 - 94.5 fL [facility] Platelet mean volume (Bld) [Entitic vol] 9.4 fL 8.7 - 12.3 fL [facility] Platelets (Bld) [#/Vol] 250 10*3/uL 146 - 337 K/uL [facility] RBC (Bld) [#/Vol] 4.96 10*6/uL [facility] WBC (Bld) [#/Vol] 7.42 10*3/uL 3.73 - 10. 10 K/uL [facility] Hematocrit (Bld) [Volume fraction] 39.2 % Low 39.6-48.8 [place] Comment on above: Performed By: #### H MUSCOGEE #### [facility] (DEFAULT) [address] [address] Hemoglobin (Bld) [Mass/Vol] 13.1 g/dL Low 13.4-16.8 [place] Comment on above: Performed By: #### H EMOGC #### [facility] (DEFAULT) [address] [address] MCV (RBC) [Entitic vol] 79.0 fL Normal 79.0-94.5 O [facility] Comment on above: Performed By: #### H EMOGC #### [facility] (DEFAULT) [address] [address] Mean Cell Hgb 26.4 pg Normal 26.1-33.3 [place] Comment on above: Performed By: #### H EMOGC #### [facility] (DEFAULT) [address] [address] Mean Cell Hgb Conc 33.4 g/dL Normal 31.9-36.5 [facility] Comment on above: Performed By: #### H EMOGC #### [facility] (DEFAULT) [address] [address] Platelet mean volume (Bld) [Entitic vol] 9.4 fL Normal 8.7-12.3 [place] Comment on above: Performed By: #### H EMOGC #### [facility] (DEFAULT) [address] [address] Platelets (Bld) [#/Vol] 250 10*3/uL Normal 146-337 [place] Comment on above: Performed By: #### H EMOGC #### [facility] (DEFAULT) [address] [address] RBC (Bld) [#/Vol] 4.96 10*6/uL Normal 4.38-5.83 [place] Comment on above: Performed By: #### H EMOGC #### [facility] (DEFAULT) [address] [address] RBC Distribution 13.3 % Normal 10.9-14.3 [facility] Comment on above: Performed By: #### H EMOGC #### [facility] (DEFAULT) [address] [place] [address] WBC (Bld) [#/Vol] 7.42 10*3/uL Normal 3.73-10.10 [place] Comment on above: Performed By: #### H MUSCOGEE #### [facility] (DEFAULT) [address] [place] [address] Erythrocyte distribution width (RBC) [Ratio] 13.2 % 10.9 - 14.3 % [facility] Hematocrit (Bld) [Volume fraction] 36.9 % Low 39.6 - 48.8 % [facility] Hemoglobin (Bld) [Mass/Vol] 12.2 g/dL Low 13.4 - 16.8 g/dL [facility] Interpretation and review of laboratory results Abnormal [facility] MCH (RBC) [Entitic mass] 26.7 pg 26. 1 - 33.3 pg [facility] MCHC (RBC) [Mass/Vol] 33.1 g/dL 31.9 - 36.5 g/dL [facility] MCV (RBC) [Entitic vol] 80.7 fL 79.0 - 94.5 fL [facility] Platelet mean volume (Bld) [Entitic vol] 9.6 fL 8.7 - 12.3 fL [facility] Platelets (Bld) [#/Vol] 255 10*3/uL 146 - 337 K/uL [facility] RBC (Bld) [#/Vol] 4.57 10*6/uL [facility] WBC (Bld) [#/Vol] 7.24 10*3/uL 3.73 - 10. 10 K/uL [facility] Hematocrit (Bld) [Volume fraction] 36.9 % Low 39.6-48.8 [place] Comment on above: Performed By: #### Y NTBNP #### [facility] (DEFAULT) [address] [place] [address] Hemoglobin (Bld) [Mass/Vol] 12.2 g/dL Low 13.4-16.8 [place] Comment on above: Performed By: #### Y NTBNP #### [facility] (DEFAULT) [address] [address] MCV (RBC) [Entitic vol] 80.7 fL Normal 79.0-94.5 O [facility] Comment on above: Performed By: #### Y NTBNP #### [facility] (DEFAULT) [address] [place] [address] Mean Cell Hgb 26.7 pg Normal 26.1-33.3 [place] Comment on above: Performed By: #### Y NTBNP #### [facility] (DEFAULT) [address] [address] Mean Cell Hgb Conc 33.1 g/dL Normal 31.9-36.5 [facility] Comment on above: Performed By: #### Y NTBNP #### [facility] (DEFAULT) [address] [address] Platelet mean volume (Bld) [Entitic vol] 9.6 fL Normal 8.7-12.3 [place] Comment on above: Performed By: #### Y NTBNP #### [facility] (DEFAULT) [address] [address] Platelets (Bld) [#/Vol] 255 10*3/uL Normal 146-337 [place] Comment on above: Performed By: #### Y NTBNP #### [facility] (DEFAULT) [address] [address] RBC (Bld) [#/Vol] 4.57 10*6/uL Normal 4.38-5.83 [place] Comment on above: Performed By: #### Y NTBNP #### [facility] (DEFAULT) [address] [address] RBC Distribution 13.2 % Normal 10.9-14.3 [facility] Comment on above: Performed By: #### Y NTBNP #### [facility] (DEFAULT) [address] [place] [address] WBC (Bld) [#/Vol] 7.24 10*3/uL Normal 3.73-10.10 [place] Comment on above: Performed By: #### Y NTBNP #### [facility] (DEFAULT) [address] [place] [address] CHEM 7 (LYTES,BUN,CREA,GLUC) on 10-23-2024 Anion gap [Moles/Vol] 11 mmol/L 7 - 17 mmol/L [facility] Chloride [Moles/Vol] 99 mmol/L 98 - 10 8 mmol/L [facility] CO2 [Moles/Vol] 31 mmol/L 21 - 31 mmol/L [facility] Creatinine [Mass/Vol] 0.56 mg/dL Low 0.70 - 1.30 mg/dL [facility] eGFR, CKD-EPI, Male - PINF [facility] Glucose [Mass/Vol] 171 mg/dL 70 - 179 mg/dL [facility] Interpretation and review of laboratory results Abnormal [facility] Osmolality Calc [Osmolality] 293 [facility] Potassium [Moles/Vol] 4.2 mmol/L 3.5 - 5.0 mmol/L [facility] Sodium [Moles/Vol] 137 mmol/L 135 - 145 mmol/L [facility] Urea nitrogen [Mass/Vol] 16 mg/dL 7 - 25 mg/d L [facility] Urea nitrogen/Creatinine [Mass ratio] 29 mg/mg [facility] Anion gap [Moles/Vol] 11 mmol/L Normal 7-17 [facility] Comment on above: Performed By: #### B LDCULT #### [facility] (DEFAULT) [address] [place] [address] Chloride [Moles/Vol] 99 mmol/L Normal 98-108 [place] Comment on above: Performed By: #### B LDCULT #### [facility] (DEFAULT) [address] [place] [address] CO2 [Moles/Vol] 31 mmol/L Normal 21-31 [facility] Comment on above: Performed By: #### B LDCULT #### [facility] (DEFAULT) [address] [place] [address] Creatinine [Mass/Vol] 0.56 mg/dL Low 0.70-1.30 [facility] Comment on above: Performed By: #### B LDCULT #### [facility] (DEFAULT) [address] [place] [address] eGFR, CKD-EPI, Male > Normal >=60 [place] Comment on above: Result Comment: Repo rted eGFR is based on the CKD-EPI 2020 equation using creatinine, age, and sex. Performed By: #### B LDCULT #### [facility] (DEFAULT) [address] [place] [address] Glucose [Mass/Vol] 171 mg/dL Normal Nonfastin -179 mg/dL; Fastin-99 [place] Comment on above: Performed By: #### B LDCULT #### [facility] (DEFAULT) [address] [place] [address] Osmolality [Osmolality] 293 mosm/kg Normal 278-305 [place] Comment on above: Performed By: #### B LDCULT #### [facility] (DEFAULT) [address] [place] [address] Potassium [Moles/Vol] 4.2 mmol/L Normal 3.5-5.0 [facility] Comment on above: Performed By: #### B LDCULT #### [facility] (DEFAULT) [address] [place] [address] Sodium [Moles/Vol] 137 mmol/L Normal 135-145 [facility] Comment on above: Performed By: #### B LDCULT #### [facility] (DEFAULT) [address] [place] [address] Urea nitrogen [Mass/Vol] 16 mg/dL Normal 7-25 [place] Comment on above: Performed By: #### B LDCULT #### [facility] (DEFAULT) [address] [place] [address] Urea nitrogen/Creatinine [Mass ratio] 29 mg/mg Normal [place] Comment on above: Performed By: #### B LDCULT #### [facility] (DEFAULT) [address] [place] [address] Anion gap [Moles/Vol] 10 mmol/L 7 - 17 mmol/L [facility] Chloride [Moles/Vol] 101 mmol/L 98 - 10 8 mmol/L [facility] CO2 [Moles/Vol] 33 mmol/L High 21 - 31 mmol/L [facility] Creatinine [Mass/Vol] 0.56 mg/dL Low 0.70 - 1.30 mg/dL [facility] eGFR, CKD-EPI, Male - PINF [facility] Glucose [Mass/Vol] 146 mg/dL 70 - 179 mg/dL [facility] Interpretation and review of laboratory results Abnormal [facility] Osmolality Calc [Osmolality] 298 [facility] Potassium [Moles/Vol] 4.2 mmol/L 3.5 - 5.0 mmol/L [facility] Sodium [Moles/Vol] 140 mmol/L 135 - 145 mmol/L [facility] Urea nitrogen [Mass/Vol] 17 mg/dL 7 - 25 mg/d L [facility] Urea nitrogen/Creatinine [Mass ratio] 30 mg/mg [facility] Anion gap [Moles/Vol] 10 mmol/L Normal 7-17 [facility] Comment on above: Performed By: #### T YPEC #### [facility] (DEFAULT) [address] [place] [address] Chloride [Moles/Vol] 101 mmol/L Normal 98-108 [place] Comment on above: Performed By: #### T YPEC #### [facility] (DEFAULT) [address] [place] [address] CO2 [Moles/Vol] 33 mmol/L High 21-31 [facility] Comment on above: Performed By: #### T YPEC #### [facility] (DEFAULT) [address] [place] [address] Creatinine [Mass/Vol] 0.56 mg/dL Low 0.70-1.30 [facility] Comment on above: Performed By: #### T YPEC #### [facility] (DEFAULT) [address] [place] [address] eGFR, CKD-EPI, Male > Normal >=60 [place] Comment on above: Result Comment: Repo rted eGFR is based on the CKD-EPI 2020 equation using creatinine, age, and sex. Performed By: #### T YPEC #### [facility] (DEFAULT) [address] [place] [address] Glucose [Mass/Vol] 146 mg/dL Normal Nonfastin -179 mg/dL; Fastin-99 [place] Comment on above: Performed By: #### T YPEC #### [facility] (DEFAULT) [address] [place] [address] Osmolality [Osmolality] 298 mosm/kg Normal 278-305 [place] Comment on above: Performed By: #### T YPEC #### [facility] (DEFAULT) [address] [place] [address] Potassium [Moles/Vol] 4.2 mmol/L Normal 3.5-5.0 [facility] Comment on above: Performed By: #### T YPEC #### [facility] (DEFAULT) [address] [place] [address] Sodium [Moles/Vol] 140 mmol/L Normal 135-145 [facility] Comment on above: Performed By: #### T YPEC #### [facility] (DEFAULT) [address] [place] [address] Urea nitrogen [Mass/Vol] 17 mg/dL Normal 7-25 [place] Comment on above: Performed By: #### T YPEC #### [facility] (DEFAULT) [address] [place] [address] Urea nitrogen/Creatinine [Mass ratio] 30 mg/mg Normal [place] Comment on above: Performed By: #### T YPEC #### [facility] (DEFAULT) [address] [place] [address] GLUCOSE POCon 10-23-2024 Glucose [Mass/Vol] 166 mg/dL 70 - 179 mg/dL [facility] POC Sample [facility] Glucose [Mass/Vol] 189 mg/dL High 70 - 179 mg/dL [facility] Interpretation and review of laboratory results Abnormal [facility] POC [facility] Glucose [Mass/Vol] 174 mg/dL 70 - 179 mg/dL [facility] POC Sample Type [facility] Glucose [Mass/Vol] 189 mg/dL High 70 - 179 mg/dL [facility] Interpretation and review of laboratory results Abnormal [facility] POC Sample Type [facility] Glucose [Mass/Vol] 113 mg/dL 70 - 179 mg/dL [facility] Glucose [Mass/Vol] 171 mg/dL 70 - 179 mg/dL [facility] Glucose [Mass/Vol] 141 mg/dL 70 - 179 mg/dL [facility] POC Sample Type [facility] Glucose [Mass/Vol] 183 mg/dL High 70 - 179 mg/dL [facility] Interpretation and review of laboratory results Abnormal [facility] POC Sample Type CAPBL [facility] No Panel Informationon 10-23 [facility] POC Sample Type CAPBL [facility] VANCOMYCIN LEVEL, TROUGH (MT E DRUG LEVEL)on 10-23-2024 Interpretation and review of laboratory results Normal [facility] Vancomycin trough [Mass/Vol] 17.4 ug/mL [facility] Vancomycin, Trough 17.4 mcg/mL Normal Therapeut ic Range: 10.0-20.0 mcg/mL [place] Comment on above: Order Comment: Pleas e draw level at specified interval PRIOR to next dose. Performed By: #### V ANCTR #### [facility] (DEFAULT) [address] [place] [address] Bacteria identified Cx Nom ( Bld)on 10-22-2024 Bacteria identified Cx Nom (Unsp spec) NO GROWTH DAY 5 OF 5 [facility] Bacteria identified Cx Nom (Unsp spec) NO GROWTH DAY 5 OF 5 [facility] CBC,PLATELETSon 10-22-2024 Erythrocyte distribution width (RBC) [Ratio] 13.2 % 10.9 - 14.3 % [facility] Hematocrit (Bld) [Volume fraction] 36.4 % Low 39.6 - 48.8 % [facility] Hemoglobin (Bld) [Mass/Vol] 11.6 g/dL Low 13.4 - 16.8 g/dL [facility] Interpretation and review of laboratory results Abnormal [facility] MCH (RBC) [Entitic mass] 26 pg Low 26. 1 - 33.3 pg [facility] MCHC (RBC) [Mass/Vol] 31.9 g/dL 31.9 - 36.5 g/dL [facility] MCV (RBC) [Entitic vol] 81.6 fL 79.0 - 94.5 fL [facility] Platelet mean volume (Bld) [Entitic vol] 9.4 fL 8.7 - 12.3 fL [facility] Platelets (Bld) [#/Vol] 236 10*3/uL 146 - 337 K/uL [facility] RBC (Bld) [#/Vol] 4.46 10*6/uL [facility] WBC (Bld) [#/Vol] 6.47 10*3/uL 3.73 - 10. 10 K/uL [facility] Hematocrit (Bld) [Volume fraction] 36.4 % Low 39.6-48.8 [place] Comment on above: Performed By: #### X M #### [facility] (DEFAULT) [address] [address] Hemoglobin (Bld) [Mass/Vol] 11.6 g/dL Low 13.4-16.8 [place] Comment on above: Performed By: #### X M #### [facility] (DEFAULT) [address] [address] MCV (RBC) [Entitic vol] 81.6 fL Normal 79.0-94.5 O [facility] Comment on above: Performed By: #### X M #### [facility] (DEFAULT) [address] [place] [address] Mean Cell Hgb 26.0 pg Low 26.1-33.3 [place] Comment on above: Performed By: #### X M #### [facility] (DEFAULT) [address] [address] Mean Cell Hgb Conc 31.9 g/dL Normal 31.9-36.5 [facility] Comment on above: Performed By: #### X M #### [facility] (DEFAULT) [address] [place] [address] Platelet mean volume (Bld) [Entitic vol] 9.4 fL Normal 8.7-12.3 [place] Comment on above: Performed By: #### X M #### [facility] (DEFAULT) [address] [place] [address] Platelets (Bld) [#/Vol] 236 10*3/uL Normal 146-337 [place] Comment on above: Performed By: #### X M #### [facility] (DEFAULT) [address] [place] [address] RBC (Bld) [#/Vol] 4.46 10*6/uL Normal 4.38-5.83 [place] Comment on above: Performed By: #### X M #### [facility] (DEFAULT) [address] [place] [address] RBC Distribution 13.2 % Normal 10.9-14.3 [facility] Comment on above: Performed By: #### X M #### [facility] (DEFAULT) [address] [place] [address] WBC (Bld) [#/Vol] 6.47 10*3/uL Normal 3.73-10.10 [place] Comment on above: Performed By: #### X M #### [facility] (DEFAULT) [address] [place] [address] CHEM 7 (LYTES,BUN,CREA,GLUC) on 10-22-2024 Anion gap [Moles/Vol] 8 mmol/L 7 - 17 mmol/L [facility] Chloride [Moles/Vol] 102 mmol/L 98 - 10 8 mmol/L [facility] CO2 [Moles/Vol] 32 mmol/L High 21 - 31 mmol/L [facility] Creatinine [Mass/Vol] 0.56 mg/dL Low 0.70 - 1.30 mg/dL [facility] eGFR, CKD-EPI, Male - PINF [facility] Glucose [Mass/Vol] 138 mg/dL 70 - 179 mg/dL [facility] Interpretation and review of laboratory results Abnormal [facility] Osmolality Calc [Osmolality] 292 [facility] Potassium [Moles/Vol] 4.1 mmol/L 3.5 - 5.0 mmol/L [facility] Sodium [Moles/Vol] 138 mmol/L 135 - 145 mmol/L [facility] Urea nitrogen [Mass/Vol] 15 mg/dL 7 - 25 mg/d L [facility] Urea nitrogen/Creatinine [Mass ratio] 27 mg/mg [facility] Anion gap [Moles/Vol] 8 mmol/L Normal 7-17 [facility] Comment on above: Performed By: #### B LDCULT #### [facility] (DEFAULT) [address] [place] [address] Chloride [Moles/Vol] 102 mmol/L Normal 98-108 [place] Comment on above: Performed By: #### B LDCULT #### [facility] (DEFAULT) [address] [place] [address] CO2 [Moles/Vol] 32 mmol/L High 21-31 [facility] Comment on above: Performed By: #### B LDCULT #### [facility] (DEFAULT) [address] [place] [address] Creatinine [Mass/Vol] 0.56 mg/dL Low 0.70-1.30 [facility] Comment on above: Performed By: #### B LDCULT #### [facility] (DEFAULT) [address] [place] [address] eGFR, CKD-EPI, Male > Normal >=60 [place] Comment on above: Result Comment: Repo rted eGFR is based on the CKD-EPI 2020 equation using creatinine, age, and sex. Performed By: #### B LDCULT #### [facility] (DEFAULT) [address] [place] [address] Glucose [Mass/Vol] 138 mg/dL Normal Nonfastin -179 mg/dL; Fastin-99 [place] Comment on above: Performed By: #### B LDCULT #### [facility] (DEFAULT) [address] [place] [address] Osmolality [Osmolality] 292 mosm/kg Normal 278-305 [place] Comment on above: Performed By: #### B LDCULT #### [facility] (DEFAULT) [address] [place] [address] Potassium [Moles/Vol] 4.1 mmol/L Normal 3.5-5.0 [facility] Comment on above: Performed By: #### B LDCULT #### [facility] (DEFAULT) [address] [place] [address] Sodium [Moles/Vol] 138 mmol/L Normal 135-145 [facility] Comment on above: Performed By: #### B LDCULT #### [facility] (DEFAULT) [address] [place] [address] Urea nitrogen [Mass/Vol] 15 mg/dL Normal 7-25 [place] Comment on above: Performed By: #### B LDCULT #### [facility] (DEFAULT) [address] [place] [address] Urea nitrogen/Creatinine [Mass ratio] 27 mg/mg Normal [place] Comment on above: Performed By: #### B LDCULT #### [facility] (DEFAULT) [address] [place] [address] Culture, Anaerobic Any Sourc devonte 10-22-2024 CUAN NO COLLECTION INFO GIVEN UNK UNK CALCANEAL BONE COLLECTED IN OR No anaerobic bacteria isolated. Normal [facility] Comment on above: Performed By: #### M 100.2000, M100.3000, M100.4001 ####[facility] [id number] [place], [address] ECGOrdered By: Trip page 10-22-2024 [facility] Work Phone: GLUCOSE POCon 10-22-2024 Glucose [Mass/Vol] 184 mg/dL High 70 - 179 mg/dL [facility] Interpretation and review of laboratory results Abnormal [facility] Glucose [Mass/Vol] 166 mg/dL 70 - 179 mg/dL [facility] Glucose [Mass/Vol] 130 mg/dL 70 - 179 mg/dL [facility] Glucose [Mass/Vol] 147 mg/dL 70 - 179 mg/dL [facility] HIGH SENSITIVITY TROPONIN I - SINGLE ORDERon 10-22-2024 Interpretation and review of laboratory results Normal [facility] Troponin I.cardiac High sensitivity method [Mass/Vol] 4 ng/L NINF - 53 ng/L [facility] hs-Troponin I 4 ng/L Normal <53 [place] Comment on above: Order Comment: 2 Bot [...] bottle. Performed By: #### B LDCULT #### [facility] (DEFAULT) [address] [place] [address] IONIZED CALCIUM, SERUMon Calcium.ionized (Bld) [Moles/Vol] 5.26 mg/dL 4.60 - 5.30 mg/dL [facility] Interpretation and review of laboratory results Normal [facility] ICA 5.26 mg/dL Normal 4.60-5.30 [place] Comment on above: Performed By: #### I CASST ####[facility] (DEFAULT)[address] [place] [address] MAGNESIUMon 10-22-2024 Magnesium [Mass/Vol] 2 mg/dL 1.6 - 2 .6 mg/dL [facility] Magnesium [Mass/Vol] 2.0 mg/dL Normal 1.6-2.6 [place] Comment on above: Performed By: #### B LDCULT #### [facility] (DEFAULT) [address] [place], [place] [id number] No Panel Informationon 10-22 POC Sample Type CAPBL [facility] POC Sample Type CAPBL [facility] Interpretation and review of laboratory results Normal [facility] PHOSPHATE, INORGANICon 10-22 Phosphate [Mass/Vol] 3.3 mg/dL 2.2 - 4 .6 mg/dL [facility] Phosphorous 3.3 mg/dL Normal 2.2-4.6 [place] Comment on above: Performed By: #### B LDCULT #### [facility] (DEFAULT) [address] [place], [place] [phone] VENOUS BLOOD GASon Base excess Calc (Bld) [Moles/Vol] 9 mmol/L High -3.0 - 3.0 mmol/L [facility] CO2 (Bld) [Partial pressure] 53 mm[Hg] High [facility] HCO3 (Bld) [Moles/Vol] 34 mmol/L High 22 - 29 mmol/L [facility] Interpretation and review of laboratory results Abnormal [facility] Oxygen (Bld) [Partial pressure] 54 mm[Hg] mm Hg [facility] Oxygen saturation in Blood 87 % High 70 - 80 % [facility] pH (Bld) 7.41 [pH] 7.32 - 7.43 [facility] Specimen source Nom (Unsp spec) Venous [facility] Base Excess 9.0 mmol/L High -3.0-3.0 [place] Comment on above: Performed By: #### X M #### [facility] (DEFAULT) [address] [place] [address] HCO3 (Bld) [Moles/Vol] 34 mmol/L High 22-29 [facility] Comment on above: Performed By: #### X M #### [facility] (DEFAULT) [address] [place] [address] Oxygen saturation in Blood 87 % High 70-80 [place] Comment on above: Performed By: #### X M #### [facility] [facility] ([facility] [address] [place] [address] 41305 pCO2, Venous 53 mm Hg High 36-52 [place] Comment on above: Performed By: #### X M #### [facility] (DEFAULT) [address] [place] [address] 52065 pH, Venous 7.41 Normal 7.32-7.43 [place] Comment on above: Performed By: #### X M #### [facility] (DEFAULT) [address] [place] [address] 52580 pO2, Venous 54 mm Hg Normal [place] Comment on above: Result Comment: Veno us pO2 is not recommended for the evaluation of oxygen status, clinical correlation is recommended. Performed By: #### X M #### [facility] (DEFAULT) [address] [place] [address] [phone] Specimen type Nom (Spec) Venous Normal [place] Comment on above: Performed By: #### X M #### [facility] (DEFAULT) [address] [place] [address] 42237 ANTI XA LMWH (ENOXAPARIN),*E XACT TIME REQUIRED* 4 HR POSTOrdered By: Helen Morton on 10-21-2024 Interpretation and review of laboratory results Abnormal [facility] LMW Heparin Chromogenic method Qn (PPP) 0.43 Low [facility] ANTI XA LMWH (ENOXAPARIN),*E XACT TIME REQUIRED* 4 HR Janice 05-04-2025 Anti Xa LMWH (Enoxaparin) 4 Hr Post 0.43 Anti-Xa IU/mL Low 0.60-1.00 [place] Comment on above: Order Comment: For i ndwelling catheters, specimen collection is acceptable on catheter day 1 and 2 only. ? Result Comment: Ther apeutic range applies to 4 hour post dose collections. Performed By: #### U [id number] #### [facility] (DEFAULT) [address] [place] [address] CBC,PLATELETSon 10-21-2024 Erythrocyte distribution width (RBC) [Ratio] 12.9 % 10.9 - 14.3 % [facility] Hematocrit (Bld) [Volume fraction] 34.8 % Low 39.6 - 48.8 % [facility] Hemoglobin (Bld) [Mass/Vol] 10.8 g/dL Low 13.4 - 16.8 g/dL [facility] Interpretation and review of laboratory results Abnormal [facility] MCH (RBC) [Entitic mass] 25.9 pg Low 26. 1 - 33.3 pg [facility] MCHC (RBC) [Mass/Vol] 31 g/dL Low 31.9 - 36.5 g/dL [facility] MCV (RBC) [Entitic vol] 83.5 fL 79.0 - 94.5 fL [facility] Platelet mean volume (Bld) [Entitic vol] 9.7 fL 8.7 - 12.3 fL [facility] Platelets (Bld) [#/Vol] 228 10*3/uL 146 - 337 K/uL [facility] RBC (Bld) [#/Vol] 4.17 10*6/uL Low [facility] WBC (Bld) [#/Vol] 6.63 10*3/uL 3.73 - 10. 10 K/uL [facility] Hematocrit (Bld) [Volume fraction] 34.8 % Low 39.6-48.8 [place] Comment on above: Performed By: #### C HM7 #### [facility] (DEFAULT) [address] [place] [address] 76703 Hemoglobin (Bld) [Mass/Vol] 10.8 g/dL Low 13.4-16.8 [place] Comment on above: Performed By: #### C HM7 #### [facility] (DEFAULT) [address] [place] [address] 11265 MCV (RBC) [Entitic vol] 83.5 fL Normal 79.0-94.5 [facility] Comment on above: Performed By: #### C HM7 #### [facility] (DEFAULT) [address] [place] [address] 33203 Mean Cell Hgb 25.9 pg Low 26.1-33.3 [place] Comment on above: Performed By: #### C HM7 #### [facility] (DEFAULT) [address] [place] [address] 21226 Mean Cell Hgb Conc 31.0 g/dL Low 31.9-36.5 [facility] Comment on above: Performed By: #### C HM7 #### [facility] (DEFAULT) [address] [place] [address] 25846 Platelet mean volume (Bld) [Entitic vol] 9.7 fL Normal 8.7-12.3 [place] Comment on above: Performed By: #### C HM7 #### [facility] (DEFAULT) [address] [place] [address] 27819 Platelets (Bld) [#/Vol] 228 10*3/uL Normal 146-337 [place] Comment on above: Performed By: #### C HM7 #### [facility] (DEFAULT) [address] [place] [address] 25575 RBC (Bld) [#/Vol] 4.17 10*6/uL Low 4.38-5.83 [place] Comment on above: Performed By: #### C HM7 #### [facility] (DEFAULT) [address] [place] [address] 20948 RBC Distribution 12.9 % Normal 10.9-14.3 [facility] Comment on above: Performed By: #### C HM7 #### [facility] (DEFAULT) [address] [place] [address] 95664 WBC (Bld) [#/Vol] 6.63 10*3/uL Normal 3.73-10.10 [place] Comment on above: Performed By: #### C HM7 #### [facility] (DEFAULT) [address] [place] [address] 53862 CHEM 7 (LYTES,BUN,CREA,GLUC) on 10-21-2024 Anion gap [Moles/Vol] 10 mmol/L 7 - 17 mmol/L [facility] Chloride [Moles/Vol] 101 mmol/L 98 - 10 8 mmol/L [facility] CO2 [Moles/Vol] 34 mmol/L High 21 - 31 mmol/L [facility] Creatinine [Mass/Vol] 0.76 mg/dL 0.70 - 1.30 mg/dL [facility] eGFR, CKD-EPI, Male - PINF [facility] Glucose [Mass/Vol] 124 mg/dL 70 - 179 mg/dL [facility] Interpretation and review of laboratory results Abnormal [facility] Osmolality Calc [Osmolality] 298 [facility] Potassium [Moles/Vol] 4.1 mmol/L 3.5 - 5.0 mmol/L [facility] Sodium [Moles/Vol] 141 mmol/L 135 - 145 mmol/L [facility] Urea nitrogen [Mass/Vol] 16 mg/dL 7 - 25 mg/d L [facility] Urea nitrogen/Creatinine [Mass ratio] 21 mg/mg [facility] Anion gap [Moles/Vol] 10 mmol/L Normal 7-17 [facility] Comment on above: Performed By: #### Y NTBNP #### [facility] (DEFAULT) [address] [place] [address] Chloride [Moles/Vol] 101 mmol/L Normal 98-108 [place] Comment on above: Performed By: #### Y NTBNP #### [facility] (DEFAULT) [address] [place] [address] 39787 CO2 [Moles/Vol] 34 mmol/L High 21-31 [facility] Comment on above: Performed By: #### Y NTBNP #### [facility] (DEFAULT) [address] [place] [address] 47061 Creatinine [Mass/Vol] 0.76 mg/dL Normal 0.70-1.30 [facility] Comment on above: Performed By: #### Y NTBNP #### [facility] (DEFAULT) [address] [place] [address] 69656 eGFR, CKD-EPI, Male > Normal >=60 [place] Comment on above: Result Comment: Repo rted eGFR is based on the CKD-EPI 2020 equation using creatinine, age, and sex. Performed By: #### Y NTBNP #### [facility] (DEFAULT) [address] [place] [address] 96794 Glucose [Mass/Vol] 124 mg/dL Normal Nonfastin -179 mg/dL; Fastin-99 [place] Comment on above: Performed By: #### Y NTBNP #### [facility] (DEFAULT) [address] [place] [address] 39689 Osmolality [Osmolality] 298 mosm/kg Normal 278-305 [place] Comment on above: Performed By: #### Y NTBNP #### [facility] (DEFAULT) [address] [place] [address] 09283 Potassium [Moles/Vol] 4.1 mmol/L Normal 3.5-5.0 [facility] Comment on above: Performed By: #### Y NTBNP #### [facility] (DEFAULT) [address] [place] [address] 02014 Sodium [Moles/Vol] 141 mmol/L Normal 135-145 [facility] Comment on above: Performed By: #### Y NTBNP #### [facility] (DEFAULT) [address] [place] [address] 23957 Urea nitrogen [Mass/Vol] 16 mg/dL Normal 7-25 [place] Comment on above: Performed By: #### Y NTBNP #### [facility] (DEFAULT) [address] [place] [address] 37733 Urea nitrogen/Creatinine [Mass ratio] 21 mg/mg Normal [place] Comment on above: Performed By: #### Y NTBNP #### [facility] (DEFAULT) [address] [place] [address] 31199 CYSTATIN C AND CREATININE WI TH ESTIMATED GFRon 10-21-2024 Creatinine [Mass/Vol] 0.65 mg/dL Low 0.70 - 1.30 mg/dL [facility] Cystatin C 1.8 mg/L High 0.51 - 1.05 mg/L [facility] EGFR BY CYS C AND CREATININE, MALE 57 Low - PINF [facility] Interpretation and review of laboratory results Abnormal [facility] Creatinine [Mass/Vol] 0.65 mg/dL Low 0.70-1.30 [facility] Comment on above: Performed By: #### C HM7 #### [facility] (DEFAULT) [address] [place] [address] 39001 Cystatin C 1.80 mg/L High 0.51-1.05 [place] Comment on above: Performed By: #### C HM7 #### [facility] (DEFAULT) [address] [place] [address] 75196 EGFR BY CYS C AND CREATININE, MALE 57 mL/min/1.73m2 Low >=60 [place] Comment on above: Result Comment: Repo rted eGFR is based on the CKD-EPI 2020 equation using cystatin C, creatinine, age, and sex. Performed By: #### C HM7 #### [facility] (DEFAULT) [address] [place] [address] 37358 GLUCOSE POCon 10-21-2024 Glucose [Mass/Vol] 184 mg/dL High 70 - 179 mg/dL [facility] Glucose [Mass/Vol] 158 mg/dL 70 - 179 mg/dL [facility] Interpretation and review of laboratory results Abnormal [facility] POC Sample Type ARTER [facility] IONIZED CALCIUM, SERUMOrdere d By: Yahir Patton on 10-21-2024 Calcium.ionized (Bld) [Moles/Vol] 5.01 mg/dL 4.60 - 5.30 mg/dL [facility] Interpretation and review of laboratory results Normal [facility] IONIZED CALCIUM, SERUMon ICA 5.01 mg/dL Normal 4.60-5.30 [place] Comment on above: Performed By: #### C HM7 #### [facility] (DEFAULT) [address] [place] [address] 96954 Laboratory - Chemistry and C hemistry - challengeon 10-21-2024 Glucose [Mass/Vol] 134 mg/dL 70 - 179 mg/dL [facility] MAGNESIUMon 10-21-2024 Magnesium [Mass/Vol] 2 mg/dL 1.6 - 2 .6 mg/dL [facility] Magnesium [Mass/Vol] 2.0 mg/dL Normal 1.6-2.6 [place] Comment on above: Performed By: #### Y NTBNP #### [facility] (DEFAULT) [address] [place] [address] 66351 MR Brain WO contraston 10-21 RADIOLOGY RADIOLOGY [facility] Radiology Study observation (narrative) [facility] MR Brain WO contrastOrdered By: Lawrence Cruz on 10-21-2024 [facility] Work Phone: MRI BRAIN WITHOUT CONTRASTon 10-21-2024 [...] 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 No progressive mass effect. Stable small volume of intraventricular extension of hemorrhage. Normal [place] No Panel Informationon 10-21 POC Sample Type CAPBL [facility] Interpretation and review of laboratory results Normal [facility] PHOSPHATE, INORGANICon 10-21 Phosphate [Mass/Vol] 3.2 mg/dL 2.2 - 4 .6 mg/dL [facility] Phosphorous 3.2 mg/dL Normal 2.2-4.6 [place] Comment on above: Performed By: #### Y NTBNP #### [facility] (DEFAULT) [address] [place] [address] Portable XR Chest Viewson RADIOLOGY RADIOLOGY [facility] Radiology Study observation (narrative) [facility] Portable XR Chest ViewsOrder ed By: Tonio Yancey on 10-21-2024 [facility] VANCOMYCIN LEVEL, TROUGH (MT E DRUG LEVEL)on 10-21-2024 Interpretation and review of laboratory results Normal [facility] Vancomycin trough [Mass/Vol] 18.3 ug/mL [facility] Vancomycin, Trough 18.3 mcg/mL Normal Therapeut ic Range: 10.0-20.0 mcg/mL [place] Comment on above: Order Comment: Zenon e draw level at specified interval PRIOR to next dose. Please hold the dose if level > 20 Performed By: #### X M #### [facility] (DEFAULT) [address] [place] [address] XR CHEST 1 VIEW PORTABLEon 0 10-21-2024 [...] consistent with small effusions and atelectasis. Normal [place] CBC,PLATELETSon 10-20-2024 Erythrocyte distribution width (RBC) [Ratio] 13 % 10.9 - 14.3 % [facility] Hematocrit (Bld) [Volume fraction] 34.2 % Low 39.6 - 48.8 % [facility] Hemoglobin (Bld) [Mass/Vol] 10.7 g/dL Low 13.4 - 16.8 g/dL [facility] Interpretation and review of laboratory results Abnormal [facility] MCH (RBC) [Entitic mass] 26.1 pg 26. 1 - 33.3 pg [facility] MCHC (RBC) [Mass/Vol] 31.3 g/dL Low 31.9 - 36.5 g/dL [facility] MCV (RBC) [Entitic vol] 83.4 fL 79.0 - 94.5 fL [facility] Platelet mean volume (Bld) [Entitic vol] 9.4 fL 8.7 - 12.3 fL [facility] Platelets (Bld) [#/Vol] 235 10*3/uL 146 - 337 K/uL [facility] RBC (Bld) [#/Vol] 4.1 10*6/uL Low [facility] WBC (Bld) [#/Vol] 6.78 10*3/uL 3.73 - 10. 10 K/uL [facility] Hematocrit (Bld) [Volume fraction] 34.2 % Low 39.6-48.8 [place] Comment on above: Performed By: #### T YPEC #### [facility] (DEFAULT) [address] [address] Hemoglobin (Bld) [Mass/Vol] 10.7 g/dL Low 13.4-16.8 [place] Comment on above: Performed By: #### T YPEC #### [facility] (DEFAULT) [address] [address] MCV (RBC) [Entitic vol] 83.4 fL Normal 79.0-94.5 O [facility] Comment on above: Performed By: #### T YPEC #### [facility] (DEFAULT) [address] [address]247 Mean Cell Hgb 26.1 pg Normal 26.1-33.3 [place] Comment on above: Performed By: #### T YPEC #### [facility] (DEFAULT) [address] [address] Mean Cell Hgb Conc 31.3 g/dL Low 31.9-36.5 [facility] Comment on above: Performed By: #### T YPEC #### [facility] (DEFAULT) [address] [address] Platelet mean volume (Bld) [Entitic vol] 9.4 fL Normal 8.7-12.3 [place] Comment on above: Performed By: #### T YPEC #### [facility] (DEFAULT) [address] [place] [address] 79270 Platelets (Bld) [#/Vol] 235 10*3/uL Normal 146-337 [place] Comment on above: Performed By: #### T YPEC #### [facility] (DEFAULT) [address] [place] [address] 01282 RBC (Bld) [#/Vol] 4.10 10*6/uL Low 4.38-5.83 [place] Comment on above: Performed By: #### T YPEC #### [facility] (DEFAULT) [address] [place] [address] 59483 RBC Distribution 13.0 % Normal 10.9-14.3 [facility] Comment on above: Performed By: #### T YPEC #### [facility] (DEFAULT) [address] [place] [address] 10793 WBC (Bld) [#/Vol] 6.78 10*3/uL Normal 3.73-10.10 [place] Comment on above: Performed By: #### T YPEC #### [facility] (DEFAULT) [address] [place] [address] 35448 CHEM 7 (LYTES,BUN,CREA,GLUC) on 10-20-2024 Anion gap [Moles/Vol] 9 mmol/L 7 - 17 mmol/L [facility] Chloride [Moles/Vol] 102 mmol/L 98 - 10 8 mmol/L [facility] CO2 [Moles/Vol] 36 mmol/L High 21 - 31 mmol/L [facility] Creatinine [Mass/Vol] 0.67 mg/dL Low 0.70 - 1.30 mg/dL [facility] eGFR, CKD-EPI, Male - PINF [facility] Glucose [Mass/Vol] 162 mg/dL 70 - 179 mg/dL [facility] Interpretation and review of laboratory results Abnormal [facility] Osmolality Calc [Osmolality] 304 [facility] Potassium [Moles/Vol] 4.1 mmol/L 3.5 - 5.0 mmol/L [facility] Sodium [Moles/Vol] 143 mmol/L 135 - 145 mmol/L [facility] Urea nitrogen [Mass/Vol] 16 mg/dL 7 - 25 mg/d L [facility] Urea nitrogen/Creatinine [Mass ratio] 24 mg/mg [facility] Anion gap [Moles/Vol] 9 mmol/L Normal 7-17 [facility] Comment on above: Performed By: #### T YPEC #### [facility] (DEFAULT) [address] [place] [address] 66903 Chloride [Moles/Vol] 102 mmol/L Normal 98-108 [place] Comment on above: Performed By: #### T YPEC #### [facility] (DEFAULT) [address] [place] [address] 18937 CO2 [Moles/Vol] 36 mmol/L High 21-31 [facility] Comment on above: Performed By: #### T YPEC #### [facility] (DEFAULT) [address] [place] [address] 95969 Creatinine [Mass/Vol] 0.67 mg/dL Low 0.70-1.30 [facility] Comment on above: Performed By: #### T YPEC #### [facility] (DEFAULT) [address] [place] [address] 68521 eGFR, CKD-EPI, Male > Normal >=60 [place] Comment on above: Result Comment: Repo rted eGFR is based on the CKD-EPI 2020 equation using creatinine, age, and sex. Performed By: #### T YPEC #### [facility] (DEFAULT) [address] [place] [address] 07781 Glucose [Mass/Vol] 162 mg/dL Normal Nonfastin -179 mg/dL; Fastin-99 [place] Comment on above: Performed By: #### T YPEC #### [facility] (DEFAULT) [address] [place] [address] 60235 Osmolality [Osmolality] 304 mosm/kg Normal 278-305 [place] Comment on above: Performed By: #### T YPEC #### [facility] (DEFAULT) [address] [place] [address] 54568 Potassium [Moles/Vol] 4.1 mmol/L Normal 3.5-5.0 [facility] Comment on above: Performed By: #### T YPEC #### [facility] (DEFAULT) [address] [place] [address] 15473 Sodium [Moles/Vol] 143 mmol/L Normal 135-145 [facility] Comment on above: Performed By: #### T YPEC #### [facility] (DEFAULT) [address] [place] [address] 35380 Urea nitrogen [Mass/Vol] 16 mg/dL Normal 7-25 [place] Comment on above: Performed By: #### T YPEC #### [facility] (DEFAULT) [address] [place] [address] 56041 Urea nitrogen/Creatinine [Mass ratio] 24 mg/mg Normal [place] Comment on above: Performed By: #### T YPEC #### [facility] (DEFAULT) [address] [place] [address] 95146 Anion gap [Moles/Vol] 10 mmol/L 7 - 17 mmol/L [facility] Chloride [Moles/Vol] 99 mmol/L 98 - 10 8 mmol/L [facility] CO2 [Moles/Vol] 35 mmol/L High 21 - 31 mmol/L [facility] Creatinine [Mass/Vol] 0.66 mg/dL Low 0.70 - 1.30 mg/dL [facility] eGFR, CKD-EPI, Male - PINF [facility] Glucose [Mass/Vol] 136 mg/dL 70 - 179 mg/dL [facility] Interpretation and review of laboratory results Abnormal [facility] Osmolality Calc [Osmolality] 296 [facility] Potassium [Moles/Vol] 4 mmol/L 3.5 - 5.0 mmol/L [facility] Sodium [Moles/Vol] 140 mmol/L 135 - 145 mmol/L [facility] Urea nitrogen [Mass/Vol] 16 mg/dL 7 - 25 mg/d L [facility] Urea nitrogen/Creatinine [Mass ratio] 24 mg/mg [facility] Anion gap [Moles/Vol] 10 mmol/L Normal 7-17 [facility] Comment on above: Performed By: #### U [id number] #### [facility] (DEFAULT) [address] [place] [address] 64139 Chloride [Moles/Vol] 99 mmol/L Normal 98-108 [place] Comment on above: Performed By: #### U [id number] #### [facility] (DEFAULT) [address] [place] [address] 75704 CO2 [Moles/Vol] 35 mmol/L High 21-31 [facility] Comment on above: Performed By: #### U [id number] #### [facility] (DEFAULT) [address] [place] [address] 98802 Creatinine [Mass/Vol] 0.66 mg/dL Low 0.70-1.30 [facility] Comment on above: Performed By: #### U [id number] #### [facility] (DEFAULT) [address] [place] [address] 38348 eGFR, CKD-EPI, Male > Normal >=60 [place] Comment on above: Result Comment: Repo rted eGFR is based on the CKD-EPI 2020 equation using creatinine, age, and sex. Performed By: #### U [id number] #### [facility] (DEFAULT) [address] [place] [address] 20487 Glucose [Mass/Vol] 136 mg/dL Normal Nonfastin -179 mg/dL; Fastin-99 [place] Comment on above: Performed By: #### U [id number] #### [facility] (DEFAULT) [address] [place] [address] Osmolality [Osmolality] 296 mosm/kg Normal 278-305 [place] Comment on above: Performed By: #### U [id number] #### [facility] (DEFAULT) [address] [place] [address] Potassium [Moles/Vol] 4.0 mmol/L Normal 3.5-5.0 [facility] Comment on above: Performed By: #### U [id number] #### [facility] (DEFAULT) [address] [place] [address] 53375 Sodium [Moles/Vol] 140 mmol/L Normal 135-145 [facility] Comment on above: Performed By: #### U [id number] #### [facility] (DEFAULT) [address] [place] [address] 23977 Urea nitrogen [Mass/Vol] 16 mg/dL Normal 7-25 [place] Comment on above: Performed By: #### U [id number] #### [facility] (DEFAULT) [address] [place] [address] 42181 Urea nitrogen/Creatinine [Mass ratio] 24 mg/mg Normal [place] Comment on above: Performed By: #### U [id number] #### [facility] (DEFAULT) [address] [place] [address] 25653 Anion gap [Moles/Vol] 8 mmol/L 7 - 17 mmol/L [facility] Chloride [Moles/Vol] 99 mmol/L 98 - 10 8 mmol/L [facility] CO2 [Moles/Vol] 39 mmol/L High 21 - 31 mmol/L [facility] Creatinine [Mass/Vol] 0.66 mg/dL Low 0.70 - 1.30 mg/dL [facility] eGFR, CKD-EPI, Male - PINF [facility] Glucose [Mass/Vol] 143 mg/dL 70 - 179 mg/dL [facility] Interpretation and review of laboratory results Abnormal [facility] Osmolality Calc [Osmolality] 300 [facility] Potassium [Moles/Vol] 3.8 mmol/L 3.5 - 5.0 mmol/L [facility] Sodium [Moles/Vol] 142 mmol/L 135 - 145 mmol/L [facility] Urea nitrogen [Mass/Vol] 16 mg/dL 7 - 25 mg/d L [facility] Urea nitrogen/Creatinine [Mass ratio] 24 mg/mg [facility] Anion gap [Moles/Vol] 8 mmol/L Normal 7-17 [facility] Comment on above: Performed By: #### V ANCTR #### [facility] (DEFAULT) [address] [address] Chloride [Moles/Vol] 99 mmol/L Normal 98-108 [place] Comment on above: Performed By: #### V ANCTR #### [facility] (DEFAULT) [address] [address] CO2 [Moles/Vol] 39 mmol/L High 21-31 [facility] Comment on above: Performed By: #### V ANCTR #### [facility] (DEFAULT) [address] [address] Creatinine [Mass/Vol] 0.66 mg/dL Low 0.70-1.30 [facility] Comment on above: Performed By: #### V ANCTR #### [facility] (DEFAULT) [address] [address] eGFR, CKD-EPI, Male > Normal >=60 [place] Comment on above: Result Comment: Repo rted eGFR is based on the CKD-EPI 2020 equation using creatinine, age, and sex. Performed By: #### V ANCTR #### [facility] (DEFAULT) [address] [address] Glucose [Mass/Vol] 143 mg/dL Normal Nonfastin -179 mg/dL; Fastin-99 [place] Comment on above: Performed By: #### V ANCTR #### [facility] (DEFAULT) [address] [place] [address] 01729 Osmolality [Osmolality] 300 mosm/kg Normal 278-305 [place] Comment on above: Performed By: #### V ANCTR #### [facility] (DEFAULT) [address] [place] [address] 76188 Potassium [Moles/Vol] 3.8 mmol/L Normal 3.5-5.0 [facility] Comment on above: Performed By: #### V ANCTR #### [facility] (DEFAULT) [address] [place] [address] 55474 Sodium [Moles/Vol] 142 mmol/L Normal 135-145 [facility] Comment on above: Performed By: #### V ANCTR #### [facility] (DEFAULT) [address] [place] [address] 48297 Urea nitrogen [Mass/Vol] 16 mg/dL Normal 7-25 [place] Comment on above: Performed By: #### V ANCTR #### [facility] (DEFAULT) [address] [place] [address] 70360 Urea nitrogen/Creatinine [Mass ratio] 24 mg/mg Normal [place] Comment on above: Performed By: #### V ANCTR #### [facility] (DEFAULT) [address] [place] [address] HEAD WITHOUT CONTRASTon 0 10-20-2024 CT [...] increasing mass effect or midline shift. Normal [place] CT Head WO contraston 2024 RADIOLOGY RADIOLOGY [facility] Radiology Study observation (narrative) [facility] CT Head WO contrastOrdered B y: Saqib Irby on 10-20-2024 [facility] Work Phone: IONIZED CALCIUM, SERUMOrdere d By: Anitra Carlos on 10-20-2024 Calcium.ionized (Bld) [Moles/Vol] 4.85 mg/dL 4.60 - 5.30 mg/dL [facility] Interpretation and review of laboratory results Normal [facility] IONIZED CALCIUM, SERUMon ICA 4.85 mg/dL Normal 4.60-5.30 [place] Comment on above: Performed By: #### T YPEC #### [facility] (DEFAULT) [address] [place] [address] MAGNESIUMon 10-20-2024 Magnesium [Mass/Vol] 1.8 mg/dL 1.6 - 2 .6 mg/dL [facility] Magnesium [Mass/Vol] 1.8 mg/dL Normal 1.6-2.6 [place] Comment on above: Performed By: #### V ANCTR #### [facility] (DEFAULT) [address] [address] No Panel Informationon 10-20 Interpretation and review of laboratory results Normal [facility] PHOSPHATE, INORGANICon 10-20 Phosphate [Mass/Vol] 3.3 mg/dL 2.2 - 4 .6 mg/dL [facility] Phosphorous 3.3 mg/dL Normal 2.2-4.6 [place] Comment on above: Performed By: #### V ANCTR #### [facility] (DEFAULT) [address] [place] [address] Portable XR Chest Viewson RADIOLOGY RADIOLOGY [facility] Radiology Study observation (narrative) [facility] Portable XR Chest ViewsOrder ed By: Beni Rivera on 10-20-2024 [facility] Work Phone: VANCOMYCIN LEVEL, TROUGH (MT E DRUG LEVEL)on 10-20-2024 Interpretation and review of laboratory results Abnormal [facility] Vancomycin trough [Mass/Vol] 20.1 ug/mL High [facility] Vancomycin, Trough 20.1 mcg/mL High Therapeut ic Range: 10.0-20.0 mcg/mL [place] Comment on above: Order Comment: Pleas e draw level at specified interval PRIOR to next dose. Please hold next dose if level > 20 Performed By: #### X M #### [facility] (DEFAULT) [address] [place] [address] XR CHEST 1 VIEW PORTABLEon 0 10-20-2024 [...] appreciable change since the prior study. Normal [place] ANTI XA LMWH (ENOXAPARIN),*E XACT TIME REQUIRED* 4 HR POSTOrdered By: Sally Zaragoza on 10-19-2024 Interpretation and review of laboratory results Abnormal [facility] LMW Heparin Chromogenic method Qn (PPP) 0.41 Low [facility] ANTI XA LMWH (ENOXAPARIN),*E XACT TIME REQUIRED* 4 HR Janice 10-19-2024 Anti Xa LMWH (Enoxaparin) 4 Hr Post 0.41 Anti-Xa IU/mL Low 0.60-1.00 [place] Comment on above: Order Comment: Plerad e draw level at specified interval PRIOR to next dose. Result Comment: Ther apeutic range applies to 4 hour post dose collections. Performed By: #### V ANCTR #### [facility] (DEFAULT) [address] [address] ARTERIAL BLOOD GASon 025 Base excess Calc (Bld) [Moles/Vol] 18.6 mmol/L High -3.0 - 3.0 mmol/L [facility] CO2 (Bld) [Partial pressure] 63 mm[Hg] High [facility] HCO3 (Bld) [Moles/Vol] 43 mmol/L High 22 - 28 mmol/L [facility] Interpretation and review of laboratory results Abnormal [facility] Oxygen (Bld) [Partial pressure] 78 mm[Hg] Low [facility] Oxygen saturation in Blood 98 % 94 - 98 % [facility] pH (Bld) 7.44 [pH] 7.35 - 7.45 [facility] Specimen source Nom (Unsp spec) Arterial [facility] Base Excess 18.6 mmol/L High -3.0-3.0 [place] Comment on above: Performed By: #### X M #### [facility] (DEFAULT) [address] [address] HCO3 (Bld) [Moles/Vol] 43 mmol/L High 22-28 [facility] Comment on above: Performed By: #### X M #### [facility] (DEFAULT) [address] [place] [address] Oxygen saturation in Blood 98 % Normal 94-98 [place] Comment on above: Performed By: #### X M #### [facility] (DEFAULT) [address] [place] [address] pCO2 63 mm Hg High 32-48 [place] Comment on above: Performed By: #### X M #### [facility] (DEFAULT) [address] [place] [address] pH, Arterial 7.44 Normal 7.35-7.45 [place] Comment on above: Performed By: #### X M #### [facility] (DEFAULT) [address] [place] [address] pO2 78 mm Hg Low 83-108 [place] Comment on above: Performed By: #### X M #### [facility] (DEFAULT) [address] [place] [address] Specimen type Nom (Spec) Arterial Normal [place] Comment on above: Performed By: #### X M #### [facility] (DEFAULT) [address] [place] [address] Base excess Calc (Bld) [Moles/Vol] 13.6 mmol/L High -3.0 - 3.0 mmol/L [facility] CO2 (Bld) [Partial pressure] 62 mm[Hg] High [facility] HCO3 (Bld) [Moles/Vol] 38 mmol/L High 22 - 28 mmol/L [facility] Inhaled oxygen concentration [facility] Interpretation and review of laboratory results Abnormal [facility] Oxygen (Bld) [Partial pressure] 75 mm[Hg] Low [facility] Oxygen saturation in Blood 97 % 94 - 98 % [facility] pH (Bld) 7.4 [pH] 7.35 - 7.45 [facility] Specimen source Nom (Unsp spec) [facility] Ex[facility] 13.6 mmol/L High -3.0-3.0 [place] Comment on above: Performed By: #### G AS5 #### [facility] (DEFAULT) [address] [place] [address] FIO2 Normal [place] Comment on above: Result Comment: 2L N C Performed By: #### G AS5 #### [facility] (DEFAULT) [address] [place] [address] HCO3 (Bld) [Moles/Vol] 38 mmol/L High 22-28 [facility] Comment on above: Performed By: #### G AS5 #### [facility] (DEFAULT) [address] [place] [address] Oxygen saturation in Blood 97 % Normal 94-98 [place] Comment on above: Performed By: #### G AS5 #### [facility] (DEFAULT) [address] [place] [address] pCO2 62 mm Hg High 32-48 [place] Comment on above: Performed By: #### G AS5 #### [facility] (DEFAULT) [address] [place] [address] pH, Arterial 7.40 Normal 7.35-7.45 [place] Comment on above: Performed By: #### G AS5 #### [facility] (DEFAULT) [address] [place] [address] pO2 75 mm Hg Low 83-108 [place] Comment on above: Performed By: #### G AS5 #### [facility] (DEFAULT) [address] [place] [address] Specimen type Nom (Spec) Arterial Normal [place] Comment on above: Performed By: #### G AS5 #### [facility] (DEFAULT) [address] [place] [address] CBC,PLATELETSon 10-19-2024 Erythrocyte distribution width (RBC) [Ratio] 13.3 % 10.9 - 14.3 % [facility] Hematocrit (Bld) [Volume fraction] 35.8 % Low 39.6 - 48.8 % [facility] Hemoglobin (Bld) [Mass/Vol] 11.3 g/dL Low 13.4 - 16.8 g/dL [facility] Interpretation and review of laboratory results Abnormal [facility] MCH (RBC) [Entitic mass] 26.5 pg 26. 1 - 33.3 pg [facility] MCHC (RBC) [Mass/Vol] 31.6 g/dL Low 31.9 - 36.5 g/dL [facility] MCV (RBC) [Entitic vol] 84 fL 79.0 - 94.5 fL [facility] Platelet mean volume (Bld) [Entitic vol] 9.1 fL 8.7 - 12.3 fL [facility] Platelets (Bld) [#/Vol] 250 10*3/uL 146 - 337 K/uL [facility] RBC (Bld) [#/Vol] 4.26 10*6/uL Low [facility] WBC (Bld) [#/Vol] 8.75 10*3/uL 3.73 - 10. 10 K/uL [facility] Hematocrit (Bld) [Volume fraction] 35.8 % Low 39.6-48.8 [place] Comment on above: Performed By: #### T YPEC #### [facility] (DEFAULT) [address] [place] [address] Hemoglobin (Bld) [Mass/Vol] 11.3 g/dL Low 13.4-16.8 [place] Comment on above: Performed By: #### T YPEC #### [facility] (DEFAULT) [address] [place] [address] MCV (RBC) [Entitic vol] 84.0 fL Normal 79.0-94.5 O [facility] Comment on above: Performed By: #### T YPEC #### [facility] (DEFAULT) [address] [address] Mean Cell Hgb 26.5 pg Normal 26.1-33.3 [place] Comment on above: Performed By: #### T YPEC #### [facility] (DEFAULT) [address] [address] Mean Cell Hgb Conc 31.6 g/dL Low 31.9-36.5 [facility] Comment on above: Performed By: #### T YPEC #### [facility] (DEFAULT) [address] [address] Platelet mean volume (Bld) [Entitic vol] 9.1 fL Normal 8.7-12.3 [place] Comment on above: Performed By: #### T YPEC #### [facility] (DEFAULT) [address] [address] Platelets (Bld) [#/Vol] 250 10*3/uL Normal 146-337 [place] Comment on above: Performed By: #### T YPEC #### [facility] (DEFAULT) [address] [address] RBC (Bld) [#/Vol] 4.26 10*6/uL Low 4.38-5.83 [place] Comment on above: Performed By: #### T YPEC #### [facility] (DEFAULT) [address] [address] RBC Distribution 13.3 % Normal 10.9-14.3 [facility] Comment on above: Performed By: #### T YPEC #### [facility] (DEFAULT) [address] [address] WBC (Bld) [#/Vol] 8.75 10*3/uL Normal 3.73-10.10 [place] Comment on above: Performed By: #### T YPEC #### [facility] (DEFAULT) [address] [address] CHEM 7 (LYTES,BUN,CREA,GLUC) on 05-02-2025 Anion gap [Moles/Vol] 11 mmol/L 7 - 17 mmol/L [facility] Chloride [Moles/Vol] 96 mmol/L Low 98 - 10 8 mmol/L [facility] CO2 [Moles/Vol] 37 mmol/L High 21 - 31 mmol/L [facility] Creatinine [Mass/Vol] 0.66 mg/dL Low 0.70 - 1.30 mg/dL [facility] eGFR, CKD-EPI, Male - PINF [facility] Glucose [Mass/Vol] 177 mg/dL 70 - 179 mg/dL [facility] Interpretation and review of laboratory results Abnormal [facility] Osmolality Calc [Osmolality] 298 [facility] Potassium [Moles/Vol] 3.8 mmol/L 3.5 - 5.0 mmol/L [facility] Sodium [Moles/Vol] 140 mmol/L 135 - 145 mmol/L [facility] Urea nitrogen [Mass/Vol] 14 mg/dL 7 - 25 mg/d L [facility] Urea nitrogen/Creatinine [Mass ratio] 21 mg/mg [facility] Anion gap [Moles/Vol] 11 mmol/L Normal 7-17 [facility] Comment on above: Performed By: #### Y NTBNP #### [facility] (DEFAULT) [address] [place] [address] Chloride [Moles/Vol] 96 mmol/L Low 98-108 [place] Comment on above: Performed By: #### Y NTBNP #### [facility] (DEFAULT) [address] [place] [address] CO2 [Moles/Vol] 37 mmol/L High 21-31 [facility] Comment on above: Performed By: #### Y NTBNP #### [facility] (DEFAULT) [address] [place] [address] Creatinine [Mass/Vol] 0.66 mg/dL Low 0.70-1.30 [facility] Comment on above: Performed By: #### Y NTBNP #### [facility] (DEFAULT) [address] [place] [address] eGFR, CKD-EPI, Male > Normal >=60 [place] Comment on above: Result Comment: Repo rted eGFR is based on the CKD-EPI 2020 equation using creatinine, age, and sex. Performed By: #### Y NTBNP #### [facility] (DEFAULT) [address] [place] [address] Glucose [Mass/Vol] 177 mg/dL Normal Nonfastin -179 mg/dL; Fastin-99 [place] Comment on above: Performed By: #### Y NTBNP #### [facility] (DEFAULT) [address] [place] [address] Osmolality [Osmolality] 298 mosm/kg Normal 278-305 [place] Comment on above: Performed By: #### Y NTBNP #### [facility] (DEFAULT) [address] [place] [address] Potassium [Moles/Vol] 3.8 mmol/L Normal 3.5-5.0 [facility] Comment on above: Performed By: #### Y NTBNP #### [facility] (DEFAULT) [address] [place] [address] Sodium [Moles/Vol] 140 mmol/L Normal 135-145 [facility] Comment on above: Performed By: #### Y NTBNP #### [facility] (DEFAULT) [address] [place] [address] Urea nitrogen [Mass/Vol] 14 mg/dL Normal 7-25 [place] Comment on above: Performed By: #### Y NTBNP #### [facility] (DEFAULT) [address] [place] [address] Urea nitrogen/Creatinine [Mass ratio] 21 mg/mg Normal [place] Comment on above: Performed By: #### Y NTBNP #### [facility] (DEFAULT) [address] [place] [address] Anion gap [Moles/Vol] 10 mmol/L 7 - 17 mmol/L [facility] Chloride [Moles/Vol] 100 mmol/L 98 - 10 8 mmol/L [facility] CO2 [Moles/Vol] 37 mmol/L High 21 - 31 mmol/L [facility] Creatinine [Mass/Vol] 0.6 mg/dL Low 0.70 - 1.30 mg/dL [facility] eGFR, CKD-EPI, Male - PINF [facility] Glucose [Mass/Vol] 138 mg/dL 70 - 179 mg/dL [facility] Interpretation and review of laboratory results Abnormal [facility] Osmolality Calc [Osmolality] 300 [facility] Potassium [Moles/Vol] 3.5 mmol/L 3.5 - 5.0 mmol/L [facility] Sodium [Moles/Vol] 143 mmol/L 135 - 145 mmol/L [facility] Urea nitrogen [Mass/Vol] 12 mg/dL 7 - 25 mg/d L [facility] Urea nitrogen/Creatinine [Mass ratio] 20 mg/mg [facility] Anion gap [Moles/Vol] 10 mmol/L Normal 7-17 [facility] Comment on above: Performed By: #### U [id number] #### [facility] (DEFAULT) [address] [place] [address] Chloride [Moles/Vol] 100 mmol/L Normal 98-108 [place] Comment on above: Performed By: #### U [id number] #### [facility] (DEFAULT) [address] [place] [address] CO2 [Moles/Vol] 37 mmol/L High 21-31 [facility] Comment on above: Performed By: #### U [id number] #### [facility] (DEFAULT) [address] [place] [address] Creatinine [Mass/Vol] 0.60 mg/dL Low 0.70-1.30 [facility] Comment on above: Performed By: #### U [id number] #### [facility] (DEFAULT) [address] [place] [address] eGFR, CKD-EPI, Male > Normal >=60 [place] Comment on above: Result Comment: Repo rted eGFR is based on the CKD-EPI 2020 equation using creatinine, age, and sex. Performed By: #### U [id number] #### [facility] (DEFAULT) [address] [place] [address] Glucose [Mass/Vol] 138 mg/dL Normal Nonfastin -179 mg/dL; Fastin-99 [place] Comment on above: Performed By: #### U [id number] #### [facility] (DEFAULT) [address] [place] [address] Osmolality [Osmolality] 300 mosm/kg Normal 278-305 [place] Comment on above: Performed By: #### U [id number] #### [facility] (DEFAULT) [address] [place] [address] Potassium [Moles/Vol] 3.5 mmol/L Normal 3.5-5.0 [facility] Comment on above: Performed By: #### U [id number] #### [facility] (DEFAULT) [address] [place] [address] Sodium [Moles/Vol] 143 mmol/L Normal 135-145 [facility] Comment on above: Performed By: #### U [id number] #### [facility] (DEFAULT) [address] [place] [address] Urea nitrogen [Mass/Vol] 12 mg/dL Normal 7-25 [place] Comment on above: Performed By: #### U [id number] #### [facility] (DEFAULT) [address] [place] [address] Urea nitrogen/Creatinine [Mass ratio] 20 mg/mg Normal [place] Comment on above: Performed By: #### U [id number] #### [facility] (DEFAULT) [address] [place] [address] CYSTATIN C AND CREATININE WI TH ESTIMATED GFRon 10-19-2024 Creatinine [Mass/Vol] 0.55 mg/dL Low 0.70 - 1.30 mg/dL [facility] Cystatin C 1.68 mg/L High 0.51 - 1.05 mg/L [facility] EGFR BY CYS C AND CREATININE, MALE 62 - PINF [facility] Interpretation and review of laboratory results Abnormal [facility] Creatinine [Mass/Vol] 0.55 mg/dL Low 0.70-1.30 [facility] Comment on above: Performed By: #### U [id number] #### [facility] (DEFAULT) [address] [place] [address] Cystatin C 1.68 mg/L High 0.51-1.05 [place] Comment on above: Performed By: #### U [id number] #### [facility] (DEFAULT) [address] [place] [address] EGFR BY CYS C AND CREATININE, MALE 62 mL/min/1.73m2 Normal >=60 [place] Comment on above: Result Comment: Repo rted eGFR is based on the CKD-EPI 2020 equation using cystatin C, creatinine, age, and sex. Performed By: #### U [id number] #### [facility] (DEFAULT) [address] [place] [address] GLUCOSE POCon 10-19-2024 Glucose [Mass/Vol] 149 mg/dL 70 - 179 mg/dL [facility] POC Sample Type CAPBL [facility] Glucose [Mass/Vol] 176 mg/dL 70 - 179 mg/dL [facility] Glucose [Mass/Vol] 185 mg/dL High 70 - 179 mg/dL [facility] Interpretation and review of laboratory results Abnormal [facility] POC Sample Type CAPBL [facility] POC Sample Type ARTER [facility] Glucose [Mass/Vol] 110 mg/dL 70 - 179 mg/dL [facility] POC Sample Type CAPBL [facility] Glucose [Mass/Vol] 186 mg/dL High 70 - 179 mg/dL [facility] Glucose [Mass/Vol] 236 mg/dL High 70 - 179 mg/dL [facility] Glucose [Mass/Vol] 143 mg/dL 70 - 179 mg/dL [facility] IONIZED CALCIUM, SERUMOrdere d By: Jyothi Cantu on 10-19-2024 Calcium.ionized (Bld) [Moles/Vol] 4.85 mg/dL 4.60 - 5.30 mg/dL [facility] Interpretation and review of laboratory results Normal [facility] IONIZED CALCIUM, SERUMon ICA 4.85 mg/dL Normal 4.60-5.30 [place] Comment on above: Performed By: #### X M #### [facility] (DEFAULT) [address] [address] MAGNESIUMon 10-19-2024 Magnesium [Mass/Vol] 2 mg/dL 1.6 - 2 .6 mg/dL [facility] Magnesium [Mass/Vol] 2.0 mg/dL Normal 1.6-2.6 [place] Comment on above: Performed By: #### B LDCULT #### [facility] (DEFAULT) [address] [address] NT-PRO B-TYPE NATRIURETIC PE PTIDEon 10-19-2024 Interpretation and review of laboratory results Normal [facility] Natriuretic peptide.B prohormone N-Terminal IA [Mass/Vol] 473 pg/mL NINF - 540 pg/mL [facility] Natriuretic peptide B (Bld) [Mass/Vol] 473 pg/mL Normal <=540 [place] Comment on above: Performed By: #### Y NTBNP #### [facility] (DEFAULT) [address] [place] [address] No Panel Informationon 10-19 [facility] Interpretation and review of laboratory results Abnormal [facility] POC Sample Type CAPBL [facility] Interpretation and review of laboratory results Normal [facility] PHOSPHATE, INORGANICon 10-19 Phosphate [Mass/Vol] 3.3 mg/dL 2.2 - 4 .6 mg/dL [facility] Phosphorous 3.3 mg/dL Normal 2.2-4.6 [place] Comment on above: Performed By: #### U [id number] #### [facility] (DEFAULT) [address] [place] [address] Portable XR Chest Viewson RADIOLOGY RADIOLOGY [facility] Radiology Study observation (narrative) [facility] Portable XR Chest ViewsOrder ed By: Nina Morris on 10-19-2024 [facility] Work Phone: SCREEN: MRSA/MSSAOrdered By: Nils Valencia on 10-19-2024 Interpretation and review of laboratory results Normal [facility] Methicillin Resistant S. Aureus By Pcr Negative Negative [facility] Staphylococcus Aureus By Pcr Negative Negative [facility] Wound Cultureon 10-19-2024 WC Normal [facility] Comment on above: Performed By: #### M 100.2000, M100.3000, M100.4001 ####[facility] [id number] [place], [address] XR CHEST 1 VIEW PORTABLEon 0 10-19-2024 [...] have reviewed and approved this report. Normal [place] ARTERIAL BLOOD GASon 025 Base excess Calc (Bld) [Moles/Vol] 7.7 mmol/L High -3.0 - 3.0 mmol/L [facility] CO2 (Bld) [Partial pressure] 54 mm[Hg] High [facility] HCO3 (Bld) [Moles/Vol] 33 mmol/L High 22 - 28 mmol/L [facility] Interpretation and review of laboratory results Abnormal [facility] Oxygen (Bld) [Partial pressure] 73 mm[Hg] Low [facility] Oxygen saturation in Blood 96 % 94 - 98 % [facility] pH (Bld) 7.39 [pH] 7.35 - 7.45 [facility] Specimen source Nom (Unsp spec) Arterial [facility] Base Excess 7.7 mmol/L High -3.0-3.0 [place] Comment on above: Performed By: #### X M #### [facility] (DEFAULT) [address] [address] HCO3 (Bld) [Moles/Vol] 33 mmol/L High 22-28 [facility] Comment on above: Performed By: #### X M #### [facility] (DEFAULT) [address] [address] Oxygen saturation in Blood 96 % Normal 94-98 [place] Comment on above: Performed By: #### X M #### [facility] (DEFAULT) [address] [place] [address] pCO2 54 mm Hg High 32-48 [place] Comment on above: Performed By: #### X M #### [facility] (DEFAULT) [address] [place] [address]53 pH, Arterial 7.39 Normal 7.35-7.45 [place] Comment on above: Performed By: #### X M #### [facility] (DEFAULT) [address] [place] [address] pO2 73 mm Hg Low 83-108 [place] Comment on above: Performed By: #### X M #### [facility] (DEFAULT) [address] [place] [address] Specimen type Nom (Spec) Arterial Normal [place] Comment on above: Performed By: #### X M #### [facility] (DEFAULT) [address] [place] [address] CBC,PLATELETSon 10-18-2024 Erythrocyte distribution width (RBC) [Ratio] 13.3 % 10.9 - 14.3 % [facility] Hematocrit (Bld) [Volume fraction] 34.5 % Low 39.6 - 48.8 % [facility] Hemoglobin (Bld) [Mass/Vol] 11.2 g/dL Low 13.4 - 16.8 g/dL [facility] Interpretation and review of laboratory results Abnormal [facility] MCH (RBC) [Entitic mass] 26.7 pg 26. 1 - 33.3 pg [facility] MCHC (RBC) [Mass/Vol] 32.5 g/dL 31.9 - 36.5 g/dL [facility] MCV (RBC) [Entitic vol] 82.1 fL 79.0 - 94.5 fL [facility] Platelet mean volume (Bld) [Entitic vol] 9.2 fL 8.7 - 12.3 fL [facility] Platelets (Bld) [#/Vol] 259 10*3/uL 146 - 337 K/uL [facility] RBC (Bld) [#/Vol] 4.2 10*6/uL Low [facility] WBC (Bld) [#/Vol] 9.62 10*3/uL 3.73 - 10. 10 K/uL [facility] Hematocrit (Bld) [Volume fraction] 34.5 % Low 39.6-48.8 [place] Comment on above: Performed By: #### U [id number] #### [facility] (DEFAULT) [address] [place] [address] Hemoglobin (Bld) [Mass/Vol] 11.2 g/dL Low 13.4-16.8 [place] Comment on above: Performed By: #### U [id number] #### [facility] (DEFAULT) [address] [place] [address] MCV (RBC) [Entitic vol] 82.1 fL Normal 79.0-94.5 [facility] Comment on above: Performed By: #### U [id number] #### [facility] (DEFAULT) [address] [address] Mean Cell Hgb 26.7 pg Normal 26.1-33.3 [place] Comment on above: Performed By: #### U [id number] #### [facility] (DEFAULT) [address] [place] [address] Mean Cell Hgb Conc 32.5 g/dL Normal 31.9-36.5 [facility] Comment on above: Performed By: #### U [id number] #### [facility] (DEFAULT) [address] [place] [address] Platelet mean volume (Bld) [Entitic vol] 9.2 fL Normal 8.7-12.3 [place] Comment on above: Performed By: #### U [id number] #### [facility] (DEFAULT) [address] [place] [address] Platelets (Bld) [#/Vol] 259 10*3/uL Normal 146-337 [place] Comment on above: Performed By: #### U [id number] #### [facility] (DEFAULT) [address] [place] [address] RBC (Bld) [#/Vol] 4.20 10*6/uL Low 4.38-5.83 [place] Comment on above: Performed By: #### U [id number] #### [facility] (DEFAULT) [address] [place] [address] RBC Distribution 13.3 % Normal 10.9-14.3 [facility] Comment on above: Performed By: #### U [id number] #### [facility] (DEFAULT) [address] [place] [address] WBC (Bld) [#/Vol] 9.62 10*3/uL Normal 3.73-10.10 [place] Comment on above: Performed By: #### U [id number] #### [facility] (DEFAULT) [address] [place] [address] CHEM 7 (LYTES,BUN,CREA,GLUC) on 10-18-2024 Anion gap [Moles/Vol] 10 mmol/L 7 - 17 mmol/L [facility] Chloride [Moles/Vol] 102 mmol/L 98 - 10 8 mmol/L [facility] CO2 [Moles/Vol] 34 mmol/L High 21 - 31 mmol/L [facility] Creatinine [Mass/Vol] 0.58 mg/dL Low 0.70 - 1.30 mg/dL [facility] [facility] eGFR, CKD-EPI, Male - PINF [facility] Glucose [Mass/Vol] 187 mg/dL High 70 - 179 mg/dL [facility] Interpretation and review of laboratory results Abnormal [facility] Osmolality Calc [Osmolality] 302 [facility] Potassium [Moles/Vol] 3.8 mmol/L 3.5 - 5.0 mmol/L [facility] Sodium [Moles/Vol] 142 mmol/L 135 - 145 mmol/L [facility] Urea nitrogen [Mass/Vol] 13 mg/dL 7 - 25 mg/d L [facility] Urea nitrogen/Creatinine [Mass ratio] 22 mg/mg [facility] Anion gap [Moles/Vol] 10 mmol/L Normal 7-17 [facility] Comment on above: Performed By: #### V ANCTR #### [facility] (DEFAULT) [address] [place] [address]4057 Chloride [Moles/Vol] 102 mmol/L Normal 98-108 [place] Comment on above: Performed By: #### V ANCTR #### [facility] (DEFAULT) [address] [place] [address] 83259 CO2 [Moles/Vol] 34 mmol/L High 21-31 [facility] Comment on above: Performed By: #### V ANCTR #### [facility] (DEFAULT) [address] [place] [address] 71725 Creatinine [Mass/Vol] 0.58 mg/dL Low 0.70-1.30 [facility] Comment on above: Performed By: #### V ANCTR #### [facility] (DEFAULT) [address] [place] [address] 30731 eGFR, CKD-EPI, Male > Normal >=60 [place] Comment on above: Result Comment: Repo rted eGFR is based on the CKD-EPI 2020 equation using creatinine, age, and sex. Performed By: #### V ANCTR #### [facility] (DEFAULT) [address] [place] [address]305 Glucose [Mass/Vol] 187 mg/dL High Nonfastin -179 mg/dL; Fastin-99 [place] Comment on above: Performed By: #### V ANCTR #### [facility] (DEFAULT) [address] [place] [address] 99690 Osmolality [Osmolality] 302 mosm/kg Normal 278-305 [place] Comment on above: Performed By: #### V ANCTR #### [facility] (DEFAULT) [address] [place] [address] 64903 Potassium [Moles/Vol] 3.8 mmol/L Normal 3.5-5.0 [facility] Comment on above: Performed By: #### V ANCTR #### [facility] (DEFAULT) [address] [place] [address] 41606 Sodium [Moles/Vol] 142 mmol/L Normal 135-145 [facility] Comment on above: Performed By: #### V ANCTR #### [facility] (DEFAULT) [address] [place] [address] 99312 Urea nitrogen [Mass/Vol] 13 mg/dL Normal 7-25 [place] Comment on above: Performed By: #### V ANCTR #### [facility] (DEFAULT) [address] [place] [address] 34299 Urea nitrogen/Creatinine [Mass ratio] 22 mg/mg Normal [place] Comment on above: Performed By: #### V ANCTR #### [facility] (DEFAULT) [address] [place] [address] 62350 Anion gap [Moles/Vol] 12 mmol/L 7 - 17 mmol/L [facility] Chloride [Moles/Vol] 103 mmol/L 98 - 10 8 mmol/L [facility] CO2 [Moles/Vol] 29 mmol/L 21 - 31 mmol/L [facility] Creatinine [Mass/Vol] 0.52 mg/dL Low 0.70 - 1.30 mg/dL [facility] eGFR, CKD-EPI, Male - PINF [facility] Glucose [Mass/Vol] 245 mg/dL High 70 - 179 mg/dL [facility] Interpretation and review of laboratory results Abnormal [facility] Osmolality Calc [Osmolality] 302 [facility] Potassium [Moles/Vol] 3.9 mmol/L 3.5 - 5.0 mmol/L [facility] Sodium [Moles/Vol] 140 mmol/L 135 - 145 mmol/L [facility] Urea nitrogen [Mass/Vol] 12 mg/dL 7 - 25 mg/d L [facility] Urea nitrogen/Creatinine [Mass ratio] 23 mg/mg [facility] Anion gap [Moles/Vol] 12 mmol/L Normal 7-17 [facility] Comment on above: Performed By: #### B LDCULT #### [facility] (DEFAULT) [address] [place] [address] 76917 Chloride [Moles/Vol] 103 mmol/L Normal 98-108 [place] Comment on above: Performed By: #### B LDCULT #### [facility] (DEFAULT) [address] [place] [address] 56430 CO2 [Moles/Vol] 29 mmol/L Normal 21-31 [facility] Comment on above: Performed By: #### B LDCULT #### [facility] (DEFAULT) [address] [place] [address] 62055 Creatinine [Mass/Vol] 0.52 mg/dL Low 0.70-1.30 [facility] Comment on above: Performed By: #### B LDCULT #### [facility] (DEFAULT) [address] [place] [address] 01802 eGFR, CKD-EPI, Male > Normal >=60 [place] Comment on above: Result Comment: Repo rted eGFR is based on the CKD-EPI 2020 equation using creatinine, age, and sex. Performed By: #### B LDCULT #### [facility] (DEFAULT) [address] [place] [address] 96790 Glucose [Mass/Vol] 245 mg/dL High Nonfastin -179 mg/dL; Fastin-99 [place] Comment on above: Performed By: #### B LDCULT #### [facility] (DEFAULT) [address] [place] [address] 73659 Osmolality [Osmolality] 302 mosm/kg Normal 278-305 [place] Comment on above: Performed By: #### B LDCULT #### [facility] (DEFAULT) [address] [place] [address] 61375 Potassium [Moles/Vol] 3.9 mmol/L Normal 3.5-5.0 [facility] Comment on above: Performed By: #### B LDCULT #### [facility] (DEFAULT) [address] [place] [address] 68548 Sodium [Moles/Vol] 140 mmol/L Normal 135-145 [facility] Comment on above: Performed By: #### B LDCULT #### [facility] (DEFAULT) [address] [place] [address] 09491 Urea nitrogen [Mass/Vol] 12 mg/dL Normal 7-25 [place] Comment on above: Performed By: #### B LDCULT #### [facility] (DEFAULT) [address] [place] [address] 89372 Urea nitrogen/Creatinine [Mass ratio] 23 mg/mg Normal [place] Comment on above: Performed By: #### B LDCULT #### [facility] (DEFAULT) [address] [place] [address] HEAD WITHOUT CONTRASTon 0 10-18-2024 CT [...] in the left temporal occipital lobes Normal [place] CT Head WO contraston 2024 RADIOLOGY RADIOLOGY [facility] contrastOrdered B y: Annamarie Del Castillo on 10-18-2024 [facility] Work Phone: GLUCOSE POCon 10-18-2024 Glucose [Mass/Vol] 220 mg/dL High 70 - 179 mg/dL [facility] Glucose [Mass/Vol] 212 mg/dL High 70 - 179 mg/dL [facility] Glucose [Mass/Vol] 252 mg/dL High 70 - 179 mg/dL [facility] Interpretation and review of laboratory results Abnormal [facility] POC Sample Type ARTER [facility] Glucose [Mass/Vol] 219 mg/dL High 70 - 179 mg/dL [facility] Glucose [Mass/Vol] 236 mg/dL High 70 - 179 mg/dL [facility] Glucose [Mass/Vol] 244 mg/dL High 70 - 179 mg/dL [facility] POC Sample Type VENO [facility] IONIZED CALCIUM, SERUMOrdere d By: Sohan Lynn on 10-18-2024 Calcium.ionized (Bld) [Moles/Vol] 4.73 mg/dL 4.60 - 5.30 mg/dL [facility] Interpretation and review of laboratory results Normal [facility] IONIZED CALCIUM, SERUMon ICA 4.73 mg/dL Normal 4.60-5.30 [place] Comment on above: Performed By: #### X M #### [facility] (DEFAULT) [address] [place] [address] 92916 MAGNESIUMon 10-18-2024 Magnesium [Mass/Vol] 2 mg/dL 1.6 - 2 .6 mg/dL [facility] Magnesium [Mass/Vol] 2.0 mg/dL Normal 1.6-2.6 [place] Comment on above: Performed By: #### B LDCULT #### [facility] (DEFAULT) [address] [place] [address] 97284 No Panel Informationon 10-18 Interpretation and review of laboratory results Abnormal [facility] POC Sample Type ARTER [facility] Interpretation and review of laboratory results Abnormal [facility] POC Sample Type CAPBL [facility] Interpretation and review of laboratory results Normal [facility] PHOSPHATE, INORGANICon 10-18 Phosphate [Mass/Vol] 3.4 mg/dL 2.2 - 4 .6 mg/dL [facility] Phosphorous 3.4 mg/dL Normal 2.2-4.6 [place] Comment on above: Performed By: #### B LDCULT #### [facility] (DEFAULT) [address] [place] [address] 54125 PLATELET COUNTon 10-18-2024 Interpretation and review of laboratory results Normal [facility] Platelet mean volume (Bld) [Entitic vol] 9.2 fL 8.7 - 12.3 fL [facility] Platelets (Bld) [#/Vol] 256 10*3/uL 146 - 337 K/uL [facility] Platelet mean volume (Bld) [Entitic vol] 9.2 fL Normal 8.7-12.3 [place] Comment on above: Performed By: #### C HM7 #### [facility] (DEFAULT) [address] [address] Platelets (Bld) [#/Vol] 256 10*3/uL Normal 146-337 [place] Comment on above: Performed By: #### C HM7 #### [facility] (DEFAULT) [address] [address] Portable XR Chest Viewson RADIOLOGY RADIOLOGY [facility] Radiology Study observation (narrative) [facility] SCREEN: MRSA/MSSAon 10-19-19 25 Methicillin Resistant S. Aureus By Pcr Negative Normal Negative [place] Comment on above: Order Comment: Colle ct [...] by the Clinical [facility] Laboratory at [facility] [place]. It has not been cleared or approved by the FDA.The laboratory is regulated under CLIA as qualified to perform high-complexity testing. This test is used for clinical purposes. It should not be regarded as investigational or for research. Performed By: #### X M #### [facility] (DEFAULT) [address] [address] Staphylococcus Aureus By Pcr Negative Normal Negative [place] Comment on above: Order Comment: Colle ct [...] by the [facility] at [facility] [place]. It has not been cleared or approved by the FDA.The laboratory is regulated under CLIA as qualified to perform high-complexity testing. This test is used for clinical purposes. It should not be regarded as investigational or for research. Performed By: #### X M #### [facility] (DEFAULT) [address] [address] SODIUMon 10-18-2024 Interpretation and review of laboratory results Normal [facility] Sodium [Moles/Vol] 142 mmol/L 135 - 145 mmol/L [facility] Sodium [Moles/Vol] 142 mmol/L Normal 135-145 [facility] Comment on above: Order Comment: Pleas e collect 2 hrs s/p 3% NS bolus when given. Performed By: #### X M #### [facility] (DEFAULT) [address] [address] Interpretation and review of laboratory results Normal [facility] Sodium [Moles/Vol] 143 mmol/L 135 - 145 mmol/L [facility] Sodium [Moles/Vol] 143 mmol/L Normal 135-145 [facility] Comment on above: Order Comment: For i ndwelling catheters, specimen collection is acceptable on catheter day 1 and 2 only. ? Performed By: #### U [id number] #### [facility] (DEFAULT) [address] [address] VANCOMYCIN LEVEL, TROUGH (MT E DRUG LEVEL)on 10-18-2024 Interpretation and review of laboratory results Abnormal [facility] Vancomycin trough [Mass/Vol] 24.2 ug/mL High [facility] Vancomycin, Trough 24.2 mcg/mL High Therapeut ic Range: 10.0-20.0 mcg/mL [place] Comment on above: Order Comment: Pleas e draw level 1 hour PRIOR to 1800 vancomycin dose. Performed By: #### C HM7 #### [facility] (DEFAULT) [address] [address] Wound Cultureon 10-18-2024 WC Normal [facility] Comment on above: Performed By: #### M 100.4001, M100.3000, M100.2000 ####[facility] [id number] [place], [address] XR CHEST 1 VIEW PORTABLEon 0 10-18-2024 [...] IMPRESSION: No major change, see above. Normal [place] XR FOOT RIGHT 3+ VIEWSon XR FOOT [...] along the posterior superior calcaneal margin. Normal [place] XR Foot - right 3 Viewson RADIOLOGY RADIOLOGY [facility] Radiology Study observation (narrative) [facility] XR Foot - right 3 ViewsOrder ed By: Rogelio Samuel on 10-18-2024 [facility] Work Phone: ARTERIAL BLOOD GASon 025 Base excess Calc (Bld) [Moles/Vol] 5.7 mmol/L High -3.0 - 3.0 mmol/L [facility] CO2 (Bld) [Partial pressure] 44 mm[Hg] [facility] HCO3 (Bld) [Moles/Vol] 30 mmol/L High 22 - 28 mmol/L [facility] Inhaled oxygen concentration 40 % [facility] Interpretation and review of laboratory results Abnormal [facility] Oxygen (Bld) [Partial pressure] 80 mm[Hg] Low [facility] Oxygen saturation in Blood 98 % 94 - 98 % [facility] PF Ratio 200 [facility] pH (Bld) 7.44 [pH] 7.35 - 7.45 [facility] Specimen source Nom (Unsp spec) Arterial [facility] Base Excess 5.7 mmol/L High -3.0-3.0 [place] Comment on above: Performed By: #### X M #### [facility] (DEFAULT) [address] [place] [address] 68835 FIO2 40 % Normal [place] Comment on above: Performed By: #### X M #### [facility] (DEFAULT) [address] [place] [address] 83715 HCO3 (Bld) [Moles/Vol] 30 mmol/L High 22-28 [facility] Comment on above: Performed By: #### X M #### [facility] (DEFAULT) [address] [place] [address] 75173 Oxygen saturation in Blood 98 % Normal 94-98 [place] Comment on above: Performed By: #### X M #### [facility] (DEFAULT) [address] [place] [address] 40456 pCO2 44 mm Hg Normal 32-48 [place] Comment on above: Performed By: #### X M #### [facility] (DEFAULT) [address] [place] [address] 85706 PF Ratio 200 Normal [place] Comment on above: Performed By: #### X M #### [facility] (DEFAULT) [address] [place] [address] 39717 pH, Arterial 7.44 Normal 7.35-7.45 [place] Comment on above: Performed By: #### X M #### [facility] (DEFAULT) [address] [address] pO2 80 mm Hg Low 83-108 [place] Comment on above: Performed By: #### X M #### [facility] (DEFAULT) [address] [address] Specimen type Nom (Spec) Arterial Normal [place] Comment on above: Performed By: #### X M #### [facility] (DEFAULT) [address] [address] BETA-HYDROXYBUTYRATE, SERUMo n 10-17-2024 Beta hydroxybutyrate [Moles/Vol] 0.85 mmol/L High NINF - 0.27 mmol/L [facility] Interpretation and review of laboratory results Abnormal [facility] Beta Hydroxybutyrate 0.85 mmol/L High <0.27 [facility] Comment on above: Order Comment: This test has not been cleared or approved by the FDA. The laboratory is regulated under CLIA as qualified to perform high-complexity testing. This test is used for clinical purposes. It should not be regarded as investigational or for research. Result Comment: Beta -hydroxybutyrate >= 3.0 mmol/L is indicative of ketosis. Performed By: #### Y NTBNP #### [facility] (DEFAULT) [address] [address] BLOOD CULTUREon 10-17-2024 Bacteria identified Cx Nom (Unsp spec) NO GROWTH DAY 5 OF 5 Normal [place] Comment on above: Order Comment: 2 Bot [...] bottle. Performed By: #### B LDCULT #### [facility] (DEFAULT) [address] [place] [address] 52630 Order Comment: 2 Bot tles (1 Set [...] bottle. Performed By: #### X M #### [facility] (DEFAULT) [address] [address] CHEM 7 (LYTES,BUN,CREA,GLUC) on 10-17-2024 Anion gap [Moles/Vol] 15 mmol/L 7 - 17 mmol/L [facility] Chloride [Moles/Vol] 100 mmol/L 98 - 10 8 mmol/L [facility] CO2 [Moles/Vol] 27 mmol/L 21 - 31 mmol/L [facility] Creatinine [Mass/Vol] 0.46 mg/dL Low 0.70 - 1.30 mg/dL [facility] eGFR, CKD-EPI, Male - PINF [facility] Glucose [Mass/Vol] 252 mg/dL High 70 - 179 mg/dL [facility] Interpretation and review of laboratory results Abnormal [facility] Osmolality Calc [Osmolality] 299 [facility] Potassium [Moles/Vol] 4.3 mmol/L 3.5 - 5.0 mmol/L [facility] Sodium [Moles/Vol] 138 mmol/L 135 - 145 mmol/L [facility] Urea nitrogen [Mass/Vol] 12 mg/dL 7 - 25 mg/d L [facility] Urea nitrogen/Creatinine [Mass ratio] 26 mg/mg [facility] Anion gap [Moles/Vol] 15 mmol/L Normal 7-17 [facility] Comment on above: Performed By: #### U [id number] #### [facility] (DEFAULT) [address] [address] Chloride [Moles/Vol] 100 mmol/L Normal 98-108 [place] Comment on above: Performed By: #### U [id number] #### [facility] (DEFAULT) [address] [place] [address] 21867 CO2 [Moles/Vol] 27 mmol/L Normal 21-31 [facility] Comment on above: Performed By: #### U [id number] #### [facility] (DEFAULT) [address] [place] [address] 77138 Creatinine [Mass/Vol] 0.46 mg/dL Low 0.70-1.30 [facility] Comment on above: Performed By: #### U [id number] #### [facility] (DEFAULT) [address] [place] [address] 96278 eGFR, CKD-EPI, Male > Normal >=60 [place] Comment on above: Result Comment: Repo rted eGFR is based on the CKD-EPI 2020 equation using creatinine, age, and sex. Performed By: #### U [id number] #### [facility] (DEFAULT) [address] [place] [address] 8[address]99 Glucose [Mass/Vol] 252 mg/dL High Nonfastin -179 mg/dL; Fastin-99 [place] Comment on above: Performed By: #### U [id number] #### [facility] (DEFAULT) [address] [place] [address]004 Osmolality [Osmolality] 299 mosm/kg Normal 278-305 [place] Comment on above: Performed By: #### U [id number] #### [facility] (DEFAULT) [address] [place] [address] 31203 Potassium [Moles/Vol] 4.3 mmol/L Normal 3.5-5.0 [facility] Comment on above: Performed By: #### U [id number] #### [facility] (DEFAULT) [address] [place] [address]444 Sodium [Moles/Vol] 138 mmol/L Normal 135-145 [facility] Comment on above: Performed By: #### U [id number] #### [facility] (DEFAULT) [address] [place] [address] 71099 Urea nitrogen [Mass/Vol] 12 mg/dL Normal 7-25 [place] Comment on above: Performed By: #### U [id number] #### [facility] (DEFAULT) [address] [place] [address] 89288 Urea nitrogen/Creatinine [Mass ratio] 26 mg/mg Normal [place] Comment on above: Performed By: #### U [id number] #### [facility] (DEFAULT) [address] [place] [address] ANGIO BRAIN/NECKon 2024 CT ANGIO BRAIN/NECK [...] discussed the critical finding/s of possible left CASE ASSEMBLER occlusion with Kristen Ramon MD on 10/16/2024 8:57 PM. I personally viewed and interpreted these images and I have reviewed and approved this report. Normal [place] CT HEAD WITHOUT CONTRASTon 0 10-17-2024 CT [...] Examination is otherwise not significant changed. Normal [place] CT Head WO contraston 2024 RADIOLOGY RADIOLOGY [facility] Radiology Study observation (narrative) [facility] CT Head WO contrastOrdered B y: Michael Lopes on 10-17-2024 [facility] Work Phone: CT Head and CT Brain for per fusion and CT angiogram Head vessels WO and W contrast Lily 10-17-2024 RADIOLOGY RADIOLOGY [facility] Cardiac echo study Procedure Ordered By: Joel Luo on 10-17-2024 Ao peak diane 1.41 m/s [facility] Work Phone: AV LVOT peak gradient 2 mmHg [facility] Work Phone: AV peak gradient 8 mmHG [facility] Work Phone: AV Velocity Ratio 0.52 [facility] Work Phone: WALT (continuity Vmax) 2.18 cm2 [facility] Work Phone: WALT index (continuity Vmax) 0.82 m/s [facility] Work Phone: Body surface area Derived from formula 2.65 m2 [facility] Work Phone: BP EF 74 % [facility] Work Phone: DI (Vmax) 0.52 [facility] Work Phone: EST RAP 15 [facility]: EST RVSP 49 mmHg [facility] Work Phone: [phone] FS 45 % [facility] Work Phone: [phone] IVC ostium 2.93 cm [facility] Work Phone: [phone] IVS 1.2 cm [facility] Work Phone: LA ESV BP (MOD) 138 mL [facility] Work Phone: LA ESV BP (MOD) index 52 mL/m2 [facility] Work Phone: [phone] LA ESV SP 2CH (MOD) 131 mL [facility] Work Phone: LA ESV SP 4CH (MOD) 142 mL [facility] Work Phone: LV EDV BP 129 mL [facility] Work Phone: LV ESV BP 34 mL [facility] Work Phone: LV mass 280.47 g [facility] Work Phone: LV Mass Index 105.8 g/m2 [facility] Work Phone: LV RWT 0.43 [facility] Work Phone: LV stroke volume BP (ml) 95 mL [facility] Work Phone: LV stroke volume index BP 35.85 mL/m2 [facility] Work Phone: LVIDD 5.6 cm [facility] Work Phone: LVIDS 3.1 cm [facility] Work Phone: LVOT area 4.15 cm2 [facility] Work Phone: LVOT diameter 2.3 cm [facility] Work Phone: LVOT peak diane 0.74 m/s [facility] Work Phone: MV pk E diane 1.13 m/s [facility] Work Phone: [facility] ECHO LV BIPLANE SYSTOLIC VOLUME INDEX 12.83 mL/m2 [facility] Work Phone: [facility] ECHO LV BP DIASTOLIC VOLUME INDEX 48.68 mL/m2 [facility] Work Phone: PV peak gradient 4 [facility]: PV PK DIANE 1.03 m/s [facility] Work Phone: PW 1.2 cm [facility] Work Phone: RA area 4CH (MOD) 29.[facility]: RA vol index 4CH (MOD) 44.91 mL/m2 [facility] Work Phone: Right atrium volume 4 chamber method of disks 119 [facility] Work [facility]: RV Area diastolic 25.2 cm2 [facility] Work Phone: RV Area systolic 15 cm2 [facility] Work Phone: RV basal diam 3.66 cm [facility] Work Phone: RV Fractional area change 40.5 % [facility] Work Phone: RV long diam 8.18 cm [facility] Work Phone: RV mid diam 2.18 cm [facility] Work Phone: RV S' 12.4 cm/s [facility] Work Phone: TAPSE 1.79 cm [facility] Work Phone: TR pk grad 34 mmHg [facility] Work Phone: TR pk diane 2.92 m/s [facility] Work Phone: [facility] Work Phone: Cardiac echo study Procedure on 10-17-2024 [facility] Radiology Study observation (narrative) [facility] ECHOCARDIOGRAMon 10-17-2024 Echocardiography Technically difficul t [...] from the original result were not included. [facility] Facility [facility] Patient Information Patient Name Lani Zaragoza [...] Role Read Date Joel Luo MD Echo [place] 10/17/2024 Wall Scoring Score Index: 1.00 The [...] and patient body habitus. Imaging system used: Helen. Clinical history: BMI 53.07. Bubble study performed for hemmorrhagic stroke per order. Hx atrial fibrillation on Eliquis. Indications Indications for study: str (more content not included)... Normal [place] EXTRA MICROon 10-17-2024 [facility] HIGH SENSITIVITY TROPONIN I - SINGLE ORDERon 10-17-2024 Interpretation and review of laboratory results Normal [facility] Troponin I.cardiac High sensitivity method [Mass/Vol] 6 ng/L NINF - 53 ng/L [facility] hs-Troponin I 6 ng/L Normal <53 [place] Comment on above: Order Comment: Acute Coronary Syndrome (ACS): Initial Evaluation and Management:[email or web address] [email or web address]%20Coronary%[email or web address] Performed By: #### Y NTBNP #### [facility] (DEFAULT) [address] [place] [address] LACTATE, BLOODon 10-17-2024 Interpretation and review of laboratory results Normal [facility] Lactate [Moles/Vol] 1.3 mmol/L 0.5 - 1. 6 mmol/L [facility] Lactate, Blood 1.3 mmol/L Normal 0.5-1.6 [place] Comment on above: Performed By: #### C 7 #### [facility] (DEFAULT) [address] [place] [address] LIPID PANEL W CALCULATED LDL on 10-17-2024 Cholesterol [Mass/Vol] 165 mg/dL NINF - 200 mg/dL [facility] Cholesterol in HDL [Mass/Vol] 37 mg/dL Low 40 - PINF mg/dL [facility] Cholesterol in LDL [Mass/Vol] 105 mg/dL High 0 - 99 mg/dL [facility] Cholesterol non HDL [Mass/Vol] 128 mg/dL NINF - 130 mg/dL [facility] Cholesterol.total/Cholest medhat in HDL [Mass ratio] 4.5 {ratio} High NINF - 4.5 [facility] Interpretation and review of laboratory results Abnormal [facility] Triglyceride [Mass/Vol] 113 mg/dL NINF - 150 mg/dL [facility] LIPID PANEL WITH REFLEX TO M EASURED LDLon 10-17-2024 Cholesterol [Mass/Vol] 168 mg/dL NINF - 200 mg/dL [facility] Cholesterol in HDL [Mass/Vol] 38 mg/dL Low 40 - PINF mg/dL [facility] Cholesterol in LDL [Mass/Vol] 106 mg/dL High 0 - 99 mg/dL [facility] Cholesterol non HDL [Mass/Vol] 130 mg/dL High NINF - 130 mg/dL [facility] Cholesterol.total/Cholest medhat in HDL [Mass ratio] 4.4 {ratio} NINF - 4.5 [facility] Interpretation and review of laboratory results Abnormal [facility] Triglyceride [Mass/Vol] 119 mg/dL NINF - 150 mg/dL [facility] MAGNESIUMon 10-17-2024 Interpretation and review of laboratory results Normal [facility] Magnesium [Mass/Vol] 1.7 mg/dL 1.6 - 2 .6 mg/dL [facility] NT-PRO B-TYPE NATRIURETIC PE PTIDEon 10-17-2024 Interpretation and review of laboratory results Abnormal [facility] Natriuretic peptide.B prohormone N-Terminal IA [Mass/Vol] 962 pg/mL High NINF - 540 pg/mL [facility] Natriuretic peptide B (Bld) [Mass/Vol] 962 pg/mL High <=540 [place] Comment on above: Performed By: #### Y NTBNP #### [facility] (DEFAULT) [address] [place] [address] No Panel Informationon 10-17 [facility] PROCALCITONINon 10-17-2024 Interpretation and review of laboratory results Normal [facility] Procalcitonin [Mass/Vol] 0.05 ng/mL TAWANA F - 0.50 ng/mL [facility] Portable XR Chest Viewson RADIOLOGY RADIOLOGY [facility] Radiology Study observation (narrative) [facility] RADIOLOGY RADIOLOGY [facility] Portable XR Chest ViewsOrder ed By: Ozzy Frederick on 10-17-2024 [facility] Work Phone: Portable XR Chest ViewsOrder ed By: Mikhail Kinsey on 10-17-2024 [facility] Work Phone: SODIUMon 10-17-2024 Interpretation and review of laboratory results Normal [facility] Sodium [Moles/Vol] 140 mmol/L 135 - 145 mmol/L [facility] Sodium [Moles/Vol] 140 mmol/L Normal 135-145 [facility] Comment on above: Performed By: #### X M #### [facility] (DEFAULT) [address] [place] [address] Interpretation and review of laboratory results Normal [facility] Sodium [Moles/Vol] 138 mmol/L 135 - 145 mmol/L [facility] Sodium [Moles/Vol] 138 mmol/L Normal 135-145 [facility] Comment on above: Order Comment: While on 3% Hypertonic Saline. Performed By: #### Y NTBNP #### [facility] (DEFAULT) [address] [place] [address] URINALYSIS REFLEX TO CULTURE PERFORMABLEon 10-17-2024 Appearance (U) Clear Clear [facility] Bacteria LM Ql (Urine sed) ABSENT ABSENT [facility] Color (U) Yellow Yellow [facility] Epithelial cells.squamous LM Ql (Urine sed) 0-2/hpf 0-2/hpf, 3-5/hpf = 1+ [facility] Glucose Test strip (U) [Mass/Vol] 500 mg/dL Abnormal Negative [facility] Interpretation and review of laboratory results [facility] Ketones (U) [Mass/Vol] 15 mg/dL = Small Abnormal Negativ e [facility] Leukocyte esterase Test strip Ql (U) Negative Negative [facility] Nitrite Ql (U) Negative [facility] pH (U) 5.5 [pH] 5.0 - 7.0 [facility] Protein (U) [Mass/Vol] 30 mg/dL Abnormal Negative [facility] RBC (U) [#/Vol] Negative Negative [facility] RBC LM.HPF (Urine sed) [#/Area] 0-2 [facility] Specific gravity (U) [Rel density] 1.025 1.001 - 1.035 [facility] Urobilinogen (U) [Mass/Vol] 0.2 E.U./dL 0.2 E.U/dL, 1.0 E.U/dL [facility] WBC LM.HPF (Urine sed) [#/Area] 0 - 5 [facility] Appearance (U) Clear Normal Clear [place] Comment on above: Order Comment: For i ndwelling catheters, specimen collection is acceptable on catheter day 1 and 2 only. ? Performed By: #### U [id number] #### [facility] (DEFAULT) [address] [place] [address] Bacteria ABSENT Normal ABSENT [place] Comment on above: Order Comment: For i ndwelling catheters, specimen collection is acceptable on catheter day 1 and 2 only. ? Performed By: #### U [id number] #### [facility] (DEFAULT) [address] [place] [address] Blood Urine Negative Normal Negative [place] Comment on above: Order Comment: For i ndwelling catheters, specimen collection is acceptable on catheter day 1 and 2 only. ? Performed By: #### U [id number] #### [facility] (DEFAULT) [address] [place] [address] Color (U) Yellow Normal Yellow [place] Comment on above: Order Comment: For i ndwelling catheters, specimen collection is acceptable on catheter day 1 and 2 only. ? Performed By: #### U [id number] #### [facility] (DEFAULT) [address] [place] [address] Glucose Ql (U) 500 mg/dL Abnormal Negative [place] Comment on above: Order Comment: For i ndwelling catheters, specimen collection is acceptable on catheter day 1 and 2 only. ? Performed By: #### U [id number] #### [facility] (DEFAULT) [address] [place] [address] Ketones Ql (U) 15 mg/dL = Small Abnormal Negative [place] Comment on above: Order Comment: For i ndwelling catheters, specimen collection is acceptable on catheter day 1 and 2 only. ? Performed By: #### U [id number] #### [facility] (DEFAULT) [address] [place] [address] Leukocyte esterase Test strip Ql (U) Negative Normal Negative [place] Comment on above: Order Comment: For i ndwelling catheters, specimen collection is acceptable on catheter day 1 and 2 only. ? Performed By: #### U [id number] #### [facility] (DEFAULT) [address] [place] [address] Nitrites Urine Negative Normal Negative [place] Comment on above: Order Comment: For i ndwelling catheters, specimen collection is acceptable on catheter day 1 and 2 only. ? Performed By: #### U [id number] #### [facility] (DEFAULT) [address] [place] [address] pH (U) 5.5 [pH] Normal 5.0-7.0 [place] Comment on above: Order Comment: For i ndwelling catheters, specimen collection is acceptable on catheter day 1 and 2 only. ? Performed By: #### U [id number] #### [facility] (DEFAULT) [address] [place] [address] Protein Urine 30 mg/dL Abnormal Negative [place] Comment on above: Order Comment: For i ndwelling catheters, specimen collection is acceptable on catheter day 1 and 2 only. ? Performed By: #### U [id number] #### [facility] (DEFAULT) [address] [place] [address] RBC Urine 0-2 Normal 0-2 [place] Comment on above: Order Comment: For i ndwelling catheters, specimen collection is acceptable on catheter day 1 and 2 only. ? Performed By: #### U [id number] #### [facility] (DEFAULT) [address] [place] [address] Specific [place] Urine 1.025 Normal 1.001-1.035 [facility] Comment on above: Order Comment: For i ndwelling catheters, specimen collection is acceptable on catheter day 1 and 2 only. ? Performed By: #### U [id number] #### [facility] (DEFAULT) [address] [place] [address] Squamous/Epithelial Cells, Urine 0-2/hpf Normal 0-2/hpf, 3-5/hpf = 1+ [place] Comment on above: Order Comment: For i ndwelling catheters, specimen collection is acceptable on catheter day 1 and 2 only. ? Performed By: #### U [id number] #### [facility] (DEFAULT) [address] [address] Urobilinogen Urine 0.2 E.U./dL Normal 0.2 E.U/d L, 1.0 E.U/dL [place] Comment on above: Order Comment: For i ndwelling catheters, specimen collection is acceptable on catheter day 1 and 2 only. ? Performed By: #### U [id number] #### [facility] (DEFAULT) [address] [address] WBC Urine 0 - 5 Normal 0 - 5 [place] Comment on above: Order Comment: For i ndwelling catheters, specimen collection is acceptable on catheter day 1 and 2 only. ? Performed By: #### U [id number] #### [facility] (DEFAULT) [address] [address] VANCOMYCIN LEVEL, TROUGH (MT E DRUG LEVEL)on 10-17-2024 Interpretation and review of laboratory results Abnormal [facility] Vancomycin trough [Mass/Vol] 21.5 ug/mL High [facility] Vancomycin, Trough 21.5 mcg/mL High Therapeut ic Range: 10.0-20.0 mcg/mL [place] Comment on above: Order Comment: For i ndwelling catheters, specimen collection is acceptable on catheter day 1 and 2 only. ? Performed By: #### U [id number] #### [facility] (DEFAULT) [address] [address] XR CHEST 1 VIEW PORTABLEon 0 10-17-2024 [...] have reviewed and approved this report. Normal [place] XR CHEST 1 VIEW PORTABLE EXAM: XR CHEST 1 VIEW PORTABLE, 10/16/2024 23:00 PM COMPARISON: No prior studies available for comparison. CLINICAL INDICATIONS: resp insufficiency RELEVANT CLINICAL HISTORY: FINDINGS: (Adequate technique) Implanted Devices: None Thorax: Bilateral interstitial thickening. No pneumothorax. No pleural effusion. Cardiomegaly. Findings concerning for vascular congestion. IMPRESSION: See above Normal [place] ABORH TYPE RECONFIRMATIONon 10-16-2024 ABO/RH(D) TYPE Negative [facility] ABO/RH(D) TYPE Negative Normal [place] Comment on above: Performed By: #### T YPEC #### [facility] (DEFAULT) [address] [place] [address] Bedside Glucoseon 10-16-2024 FINGERSTICK GLU 189 mg/dL High 74-106 [facility] Comment on above: Result Comment: REYNA GEMENT OF PATIENT CARE PER NURSING PROTOCOL Performed By: #### L 501.080 ####[facility] [address] [facility] [address] FINGERSTICK GLU 208 mg/dL High [address] [facility] Comment on above: Result Comment: REYNA GEMENT OF PATIENT CARE PER NURSING PROTOCOL Performed By: #### L 501.080 ####[facility] [address] [place], [address] FINGERSTICK GLU 206 mg/dL High 74-106 [facility] Comment on above: Result Comment: REYNA LAIRD OF PATIENT CARE PER NURSING PROTOCOL Performed By: #### L 501.080 ####[facility] [address] [place], [address] Brain/Head without Contrasto n 10-16-2024 Brain/Head without Contrast Normal [facility] CBC AND ELECTRONIC DIFFon Basophils (Bld) [#/Vol] 0.04 10*3/uL Normal 0.00-0.09 [place] Comment on above: Performed By: #### X M #### [facility] (DEFAULT) [address] [place] [address] Basophils/100 WBC (Bld) 0.3 % Normal O [facility] Comment on above: Performed By: #### X M #### [facility] (DEFAULT) [address] [place] [address] DIFF STATUS Electronic Differential Normal [place] Comment on above: Performed By: #### X M #### [facility] (DEFAULT) [address] [place] [address] Eosinophils (Bld) [#/Vol] 0.14 10*3/uL Normal 0.00-0.4 8 [place] Comment on above: Performed By: #### X M #### [facility] (DEFAULT) [address] [place] [address] Eosinophils/100 WBC (Bld) 1.0 % Normal [place] Comment on above: Performed By: #### X M #### [facility] (DEFAULT) [address] [place] [address] Hematocrit (Bld) [Volume fraction] 37.5 % Low 39.6-48.8 [place] Comment on above: Performed By: #### X M #### [facility] (DEFAULT) [address] [place] [address] Hemoglobin (Bld) [Mass/Vol] 12.6 g/dL Low 13.4-16.8 [place] Comment on above: Performed By: #### X M #### [facility] (DEFAULT) [address] [address] Immature Grans % 0.4 % Normal [facility] Comment on above: Performed By: #### X M #### [facility] (DEFAULT) [address] [address] Immature Grans Absolute 0.06 K/uL Normal <=0.07 O [facility] Comment on above: Performed By: #### X M #### [facility] (DEFAULT) [address] [address] Lymphocytes (Bld) [#/Vol] 2.02 10*3/uL Normal 0.83-3.5 7 [place] Comment on above: Performed By: #### X M #### [facility] (DEFAULT) [address] [address] Lymphocytes/100 WBC (Bld) 15.1 % Normal [place] Comment on above: Performed By: #### X M #### [facility] (DEFAULT) [address] [address] MCV (RBC) [Entitic vol] 78.9 fL Low 79.0-94.5 [facility] Comment on above: Performed By: #### X M #### [facility] (DEFAULT) [address] [address] Mean Cell Hgb 26.5 pg Normal 26.1-33.3 [place] Comment on above: Performed By: #### X M #### [facility] (DEFAULT) [address] [address] Mean Cell Hgb Conc 33.6 g/dL Normal 31.9-36.5 [facility] Comment on above: Performed By: #### X M #### [facility] (DEFAULT) [address] [address] Monocytes (Bld) [#/Vol] 0.75 10*3/uL Normal 0.24-0.93 [place] Comment on above: Performed By: #### X M #### [facility] (DEFAULT) [address] [place] [address] Monocytes/100 WBC (Bld) 5.6 % Normal O [facility] Comment on above: Performed By: #### X M #### [facility] (DEFAULT) [address] [place] [address] Nucleated RBC 0.0 /100 WBC Normal <=0.2 [facility] Comment on above: Performed By: #### X M #### [facility] (DEFAULT) [address] [place] [address] Platelet mean volume (Bld) [Entitic vol] 9.2 fL Normal 8.7-12.3 [place] Comment on above: Performed By: #### X M #### [facility] (DEFAULT) [address] [place] [address] Platelets (Bld) [#/Vol] 307 10*3/uL Normal 146-337 [place] Comment on above: Performed By: #### X M #### [facility] (DEFAULT) [address] [place] [address] RBC (Bld) [#/Vol] 4.75 10*6/uL Normal 4.38-5.83 [place] Comment on above: Performed By: #### X M #### [facility] (DEFAULT) [address] [place] [address] RBC Distribution 13.2 % Normal 10.9-14.3 [facility] Comment on above: Performed By: #### X M #### [facility] (DEFAULT) [address] [place] [address] Segs + Bands Auto 77.6 % Normal [facility] Comment on above: Performed By: #### X M #### [facility] (DEFAULT) [address] [place] [address] Segs + Bands,Absolute Auto 10.38 K/uL High 1.57-6.19 [place] Comment on above: Performed By: #### X M #### [facility] (DEFAULT) [address] [place] [address] WBC (Bld) [#/Vol] 13.39 10*3/uL High 3.73-10.10 [place] Comment on above: Performed By: #### X M #### [facility] (DEFAULT) [address] [place] [address] CBC,PLATELETSon 10-16-2024 Erythrocyte distribution width (RBC) [Ratio] 13.2 % 10.9 - 14.3 % [facility] Hematocrit (Bld) [Volume fraction] 37 % Low 39.6 - 48.8 % [facility] Hemoglobin (Bld) [Mass/Vol] 12.6 g/dL Low 13.4 - 16.8 g/dL [facility] Interpretation and review of laboratory results Abnormal [facility] MCH (RBC) [Entitic mass] 27.1 pg 26. 1 - 33.3 pg [facility] MCHC (RBC) [Mass/Vol] 34.1 g/dL 31.9 - 36.5 g/dL [facility] MCV (RBC) [Entitic vol] 79.6 fL 79.0 - 94.5 fL [facility] Platelet mean volume (Bld) [Entitic vol] 9.2 fL 8.7 - 12.3 fL [facility] Platelets (Bld) [#/Vol] 272 10*3/uL 146 - 337 K/uL [facility] RBC (Bld) [#/Vol] 4.65 10*6/uL [facility] WBC (Bld) [#/Vol] 12.56 10*3/uL High 3.73 - 10 .10 K/uL [facility] Hematocrit (Bld) [Volume fraction] 37.0 % Low 39.6-48.8 [place] Comment on above: Performed By: #### X M #### [facility] (DEFAULT) [address] [address] Hemoglobin (Bld) [Mass/Vol] 12.6 g/dL Low 13.4-16.8 [place] Comment on above: Performed By: #### X M #### [facility] (DEFAULT) [address] [address] MCV (RBC) [Entitic vol] 79.6 fL Normal 79.0-94.5 O [facility] Comment on above: Performed By: #### X M #### [facility] (DEFAULT) [address] [address] Mean Cell Hgb 27.1 pg Normal 26.1-33.3 [place] Comment on above: Performed By: #### X M #### [facility] (DEFAULT) [address] [address] Mean Cell Hgb Conc 34.1 g/dL Normal 31.9-36.5 [facility] Comment on above: Performed By: #### X M #### [facility] (DEFAULT) [address] [address] Platelet mean volume (Bld) [Entitic vol] 9.2 fL Normal 8.7-12.3 [place] Comment on above: Performed By: #### X M #### [facility] (DEFAULT) [address] [address] Platelets (Bld) [#/Vol] 272 10*3/uL Normal 146-337 [place] Comment on above: Performed By: #### X M #### [facility] (DEFAULT) [address] [address] RBC (Bld) [#/Vol] 4.65 10*6/uL Normal 4.38-5.83 [place] Comment on above: Performed By: #### X M #### [facility] (DEFAULT) [address] [place] [address] RBC Distribution 13.2 % Normal 10.9-14.3 [facility] Comment on above: Performed By: #### X M #### [facility] (DEFAULT) [address] [place] [address] WBC (Bld) [#/Vol] 12.56 10*3/uL High 3.73-10.10 [place] Comment on above: Performed By: #### X M #### [facility] (DEFAULT) [address] [place] [address] CHEM 7 (LYTES,BUN,CREA,GLUC) on 10-16-2024 Anion gap [Moles/Vol] 14 mmol/L 7 - 17 mmol/L [facility] Chloride [Moles/Vol] 97 mmol/L Low 98 - 10 8 mmol/L [facility] CO2 [Moles/Vol] 29 mmol/L 21 - 31 mmol/L [facility] Creatinine [Mass/Vol] 0.5 mg/dL Low 0.70 - 1.30 mg/dL [facility] eGFR, CKD-EPI, Male - PINF [facility] Glucose [Mass/Vol] 223 mg/dL High 70 - 179 mg/dL [facility] Interpretation and review of laboratory results Abnormal [facility] Osmolality Calc [Osmolality] 291 [facility] Potassium [Moles/Vol] 3.8 mmol/L 3.5 - 5.0 mmol/L [facility] Sodium [Moles/Vol] 136 mmol/L 135 - 145 mmol/L [facility] Urea nitrogen [Mass/Vol] 9 mg/dL 7 - 25 mg/d L [facility] Urea nitrogen/Creatinine [Mass ratio] 18 mg/mg [facility] Anion gap [Moles/Vol] 14 mmol/L Normal 7-17 [facility] Comment on above: Performed By: #### T YPEC #### [facility] (DEFAULT) [address] [place] [address] Chloride [Moles/Vol] 97 mmol/L Low 98-108 [place] Comment on above: Performed By: #### T YPEC #### [facility] (DEFAULT) [address] [place] [address] CO2 [Moles/Vol] 29 mmol/L Normal 21-31 [facility] Comment on above: Performed By: #### T YPEC #### [facility] (DEFAULT) [address] [place] [address] Creatinine [Mass/Vol] 0.50 mg/dL Low 0.70-1.30 [facility] Comment on above: Performed By: #### T YPEC #### [facility] (DEFAULT) [address] [place] [address] eGFR, CKD-EPI, Male > Normal >=60 [place] Comment on above: Result Comment: Repo rted eGFR is based on the CKD-EPI 2020 equation using creatinine, age, and sex. Performed By: #### T YPEC #### [facility] (DEFAULT) [address] [place] [address] Glucose [Mass/Vol] 223 mg/dL High Nonfastin -179 mg/dL; Fastin-99 [place] Comment on above: Performed By: #### T YPEC #### [facility] (DEFAULT) [address] [place] [address] Osmolality [Osmolality] 291 mosm/kg Normal 278-305 [place] Comment on above: Performed By: #### T YPEC #### [facility] (DEFAULT) [address] [address] Potassium [Moles/Vol] 3.8 mmol/L Normal 3.5-5.0 [facility] Comment on above: Performed By: #### T YPEC #### [facility] (DEFAULT) [address] [place] [address] Sodium [Moles/Vol] 136 mmol/L Normal 135-145 [facility] Comment on above: Performed By: #### T YPEC #### [facility] (DEFAULT) [address] [place] [address] Urea nitrogen [Mass/Vol] 9 mg/dL Normal 7-25 [place] Comment on above: Performed By: #### T YPEC #### [facility] (DEFAULT) [address] [place] [address] Urea nitrogen/Creatinine [Mass ratio] 18 mg/mg Normal [place] Comment on above: Performed By: #### T YPEC #### [facility] (DEFAULT) [address] [place] [address] CHM 7 - EDon 10-16-2024 Anion gap [Moles/Vol] 12 mmol/L Normal 7-17 [facility] Comment on above: Performed By: #### U [id number] #### [facility] (DEFAULT) [address] [place] [address] Chloride [Moles/Vol] 99 mmol/L Normal 98-108 [place] Comment on above: Performed By: #### U [id number] #### [facility] (DEFAULT) [address] [place] [address] CO2 [Moles/Vol] 29 mmol/L Normal 21-31 [facility] Comment on above: Performed By: #### U [id number] #### [facility] (DEFAULT) [address] [place] [address] Creatinine [Mass/Vol] 0.52 mg/dL Low 0.70-1.30 [facility] Comment on above: Performed By: #### U [id number] #### [facility] (DEFAULT) [address] [place] [address] eGFR, CKD-EPI, Male > Normal >=60 [place] Comment on above: Result Comment: Repo rted eGFR is based on the CKD-EPI 2020 equation using creatinine, age, and sex. Performed By: #### U [id number] #### [facility] (DEFAULT) [address] [place] [address] Glucose [Mass/Vol] 224 mg/dL High Nonfastin -179 mg/dL; Fastin-99 [place] Comment on above: Performed By: #### U [id number] #### [facility] (DEFAULT) [address] [place] [address] Osmolality [Osmolality] 292 mosm/kg Normal 278-305 [place] Comment on above: Performed By: #### U [id number] #### [facility] (DEFAULT) [address] [address] Potassium [Moles/Vol] 3.8 mmol/L Normal 3.5-5.0 [facility] Comment on above: Performed By: #### U [id number] #### [facility] (DEFAULT) [address] [place] [address] Sodium [Moles/Vol] 136 mmol/L Normal 135-145 [facility] Comment on above: Performed By: #### U [id number] #### [facility] (DEFAULT) [address] [address] Urea nitrogen [Mass/Vol] 9 mg/dL Normal 7-25 [place] Comment on above: Performed By: #### U [id number] #### [facility] (DEFAULT) [address] [place] [address] Urea nitrogen/Creatinine [Mass ratio] 17 mg/mg Normal [place] Comment on above: Performed By: #### U [id number] #### [facility] (DEFAULT) [address] [place] [address] STROKE HEAD-STROKE ALERT ONLYon 10-16-2024 CT [...] duffy-white differentiation, predominantly localizing to the left CASE ASSEMBLER territory. 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 2. Trace interventricular hemorrhage. 3. Localized mass effect without significant midline shift, herniation, hydrocephalus. Pulmonary results were discussed with Kristen Ramon MD at 8:57 PM on October 16, 2024. I personally viewed and interpreted these images and I have reviewed and approved this report. Normal [place] Culture, Anaerobic Any Sourc devonte 10-16-2024 CUAN Normal [facility] Comment on above: Performed By: #### M 100.2000, M100.4001, M100.3000 ####[facility] [address] [place], [address] Glucose measurement at [facility] deOrdered By: Haily Javier on 10-16-2024 Glucose [Mass/Vol] 189 mg/dL High 74-106 [facility] Comment on above: MANAGEMENT OF PATIEN T CARE PER NURSING PROTOCOL HEMOGLOBIN A1Con 10-16-2024 Average glucose Estimated from glycated hemoglobin (Bld) [Mass/Vol] 255 mg/dL [facility] HbA1c (Bld) [Mass fraction] 10.5 % High 4.7 - 5.6 % [facility] Interpretation and review of laboratory results Abnormal [facility] Glucose [Mass/Vol] 255 mg/dL Normal [facility] Comment on above: Performed By: #### X M #### [facility] (DEFAULT) [address] [address] Hemoglobin A1C HPLC 10.5 % High 4.7-5.6 [place] Comment on above: Performed By: #### X M #### [facility] (DEFAULT) [address] [place] [address] HEPATIC FUNCTION PANELon Albumin [Mass/Vol] 3.5 g/dL Normal 3.5-5.0 [facility] Comment on above: Performed By: #### G AS5 #### [facility] (DEFAULT) [address] [address] ALP [Catalytic activity/Vol] 92 U/L Normal 32-126 [place] Comment on above: Performed By: #### G AS5 #### [facility] (DEFAULT) [address] [address] ALT [Catalytic activity/Vol] 13 U/L Normal 10-52 [place] Comment on above: Performed By: #### G AS5 #### [facility] (DEFAULT) [address] [address] AST [Catalytic activity/Vol] 14 U/L Normal 10-39 [place] Comment on above: Performed By: #### G AS5 #### [facility] (DEFAULT) [address] [place] [address] Bilirubin [Mass/Vol] 0.6 mg/dL Normal <1.5 [place] Comment on above: Performed By: #### G AS5 #### [facility] (DEFAULT) [address] [address] Bilirubin.indirect [Mass/Vol] 0.2 mg/dL Normal <0.3 [place] Comment on above: Performed By: #### G AS5 #### [facility] (DEFAULT) [address] [address] Protein [Mass/Vol] 7.2 g/dL Normal 6.4-8.3 [facility] Comment on above: Performed By: #### G AS5 #### [facility] (DEFAULT) [address] [address] HIGH SENSITIVITY TROPONIN I - SINGLE ORDERon 10-16-2024 Interpretation and review of laboratory results Normal [facility] Troponin I.cardiac High sensitivity method [Mass/Vol] 6 ng/L NINF - 53 ng/L [facility] hs-Troponin I 6 ng/L Normal <53 [place] Comment on above: Order Comment: 2 Bot [...] bottle. Performed By: #### B LDCULT #### [facility] (DEFAULT) [address] [address] hs-Troponin I 6 ng/L Normal <53 [place] Comment on above: Order Comment: Acute Coronary Syndrome (ACS): Initial Evaluation and Management:[email or web address].[facility]/sites/ebm/Documents/G uidelines/Acute%20Coronary%20Syndrome.pdf#search=troponin Performed By: #### G AS5 #### [facility] (DEFAULT) [address] [place] [address] IONIZED CALCIUM, SERUMOrdere d By: Kike Hansen on 10-16-2024 Calcium.ionized (Bld) [Moles/Vol] 4.8 mg/dL 4.60 - 5.30 mg/dL [facility] Interpretation and review of laboratory results Normal [facility] IONIZED CALCIUM, SERUMon ICA 4.80 mg/dL Normal 4.60-5.30 [place] Comment on above: Performed By: #### X M #### [facility] (DEFAULT) [address] [place] [address] LIPID PANEL W CALCULATED LDL on 10-16-2024 Calculated LDL Cholesterol 105 mg/dL High 0-99 [place] Comment on above: Result Comment: [<10 0 mg/dL: Optimal] [100-129 mg/dL: Near Optimal] [130-159 mg/dL: Borderline High] [160-189 mg/dL: High] [>189 mg/dL: Very High] Performed By: #### V ANCTR #### [facility] (DEFAULT) [address] [place] [address] Cholesterol [Mass/Vol] 165 mg/dL Normal <200 [facility] Comment on above: Result Comment: [<20 0 mg/dL: Desirable] [200-239 mg/dL: Borderline High] [>239 mg/dL: High] Performed By: #### V ANCTR #### [facility] (DEFAULT) [address] [place] [address] Cholesterol in HDL [Mass/Vol] 37 mg/dL Low >=40 [place] Comment on above: Result Comment: [<40 mg/dL: Low (High Risk)] [>59 mg/dL: High (Low Risk)] Performed By: #### V ANCTR #### [facility] (DEFAULT) [address] [place] [address] Non HDL Cholesterol 128 mg/dL Normal <130 [place] Comment on above: Performed By: #### V ANCTR #### [facility] (DEFAULT) [address] [place] [address] Total Cholesterol/HDL Ratio 4.5 High <4.5 [place] Comment on above: Performed By: #### V ANCTR #### [facility] (DEFAULT) [address] [place] [address] Triglyceride [Mass/Vol] 113 mg/dL Normal <150 [facility] Comment on above: Result Comment: [<15 0 mg/dL: Desirable] [150-199 mg/dL: Borderline] [200-499 mg/dL: High] [>500 mg/dL: Very High] Performed By: #### Lei ANCTR #### [facility] (DEFAULT) [address] [place] [address] LIPID PANEL WITH REFLEX TO M EASURED LDLon 10-16-2024 Calculated LDL Cholesterol 106 mg/dL High 0-99 [place] Comment on above: Result Comment: [<10 0 mg/dL: Optimal] [100-129 mg/dL: Near Optimal] [130-159 mg/dL: Borderline High] [160-189 mg/dL: High] [>189 mg/dL: Very High] Performed By: #### Jose AS5 #### [facility] (DEFAULT) [address] [place] [address] Cholesterol [Mass/Vol] 168 mg/dL Normal <200 [facility] Comment on above: Result Comment: [<20 0 mg/dL: Desirable] [200-239 mg/dL: Borderline High] [>239 mg/dL: High] Performed By: ###Isis Garcia AS5 #### [facility] (DEFAULT) [address] [place] [address] Cholesterol in HDL [Mass/Vol] 38 mg/dL Low >=40 [place] Comment on above: Result Comment: [<40 mg/dL: Low (High Risk)] [>59 mg/dL: High (Low Risk)] Performed By: ###Isis Garcia AS5 #### [facility] (DEFAULT) [address] [place] [address] Non HDL Cholesterol 130 mg/dL High <130 [place] Comment on above: Performed By: #### Jose AS5 #### [facility] (DEFAULT) [address] [place] [address] Total Cholesterol/HDL Ratio 4.4 Normal <4.5 [place] Comment on above: Performed By: ###Isis Garcia AS5 #### [facility] (DEFAULT) [address] [place] [address] Triglyceride [Mass/Vol] 119 mg/dL Normal <150 [facility] Comment on above: Result Comment: [<15 0 mg/dL: Desirable] [150-199 mg/dL: Borderline] [200-499 mg/dL: High] [>500 mg/dL: Very High] Performed By: #### G AS5 #### [facility] (DEFAULT) [address] [place] [address] MAGNESIUMon 10-16-2024 Magnesium [Mass/Vol] 1.6 mg/dL 1.6 - 2 .6 mg/dL [facility] Magnesium [Mass/Vol] 1.6 mg/dL Normal 1.6-2.6 [place] Comment on above: Performed By: #### T YPEC #### [facility] (DEFAULT) [address] [place] [address] Magnesium [Mass/Vol] 1.7 mg/dL Normal 1.6-2.6 [place] Comment on above: Performed By: #### G AS5 #### [facility] (DEFAULT) [address] [place] [address] No Panel Informationon 10-16 Interpretation and review of laboratory results Normal [facility] PHOSPHATE, INORGANICon 10-16 Phosphate [Mass/Vol] 3 mg/dL 2.2 - 4 .6 mg/dL [facility] Phosphorous 3.0 mg/dL Normal 2.2-4.6 [place] Comment on above: Performed By: #### T YPEC #### [facility] (DEFAULT) [address] [place] [address] PROCALCITONINon 10-16-2024 Procalcitonin 0.05 ng/mL Normal <0.50 [place] Comment on above: Result Comment: Proc alcitonin [...] and trend procalcitonin in various clinical settings. [email or web address].[facility]/departments/Pharmacy/_layouts/15 /WopiFrame.aspx?sourcedoc=/departments/Pharmacy/Documents/GD LProcalcitonin.docx&action=default&DefaultItemOpen=1 Two common cutoffs associated with bacterial infections are as follows. Respiratory tract infections: >0.25 ng/mL Sepsis/septic shock: >0.5 ng/mL Procalcitonin should not be used alone as a diagnostic tool, however. All procalcitonin results should be interpreted in association with the patients clinical condition and all laboratory findings. Performed By: #### V ANCTR #### [facility] (DEFAULT) [address] [address] PTINR-STROKEon 10-16-2024 INR Coag (PPP) [Relative time] 1.1 {INR} Normal 0.9-1.1 [place] Comment on above: Performed By: #### C HM7 #### [facility] (DEFAULT) [address] [address] PT Coag (PPP) [Time] 14.5 s High 11.9-14.2 [place] Comment on above: Performed By: #### C HM7 #### [facility] (DEFAULT) [address] [address] PTTon 10-16-2024 aPTT Coag (Bld) [Time] 33.6 s Normal 24.0-34.3 [facility] Comment on above: Performed By: #### C HM7 #### [facility] (DEFAULT) [address] [address] Portable XR Chest Viewson Radiology Study observation (narrative) [facility] TYPE AND SCREENon 10-16-2024 ABO/RH(D) TYPE Negative Normal [place] Comment on above: Performed By: #### X M #### [facility] (DEFAULT) [address] [place] [address] Specimen Expiration 10/19/2024 23:59 Normal [place] Comment on above: Performed By: #### X M #### [facility] (DEFAULT) [address] [place] [address] URINALYSIS REFLEX TO CULTURE PERFORMABLEon 10-16-2024 Appearance (U) Clear Clear [facility] Bacteria LM Ql (Urine sed) ABSENT ABSENT [facility] Color (U) Yellow Yellow [facility] Epithelial cells.squamous LM Ql (Urine sed) 0-2/hpf 0-2/hpf, 3-5/hpf = 1+ [facility] Glucose Test strip (U) [Mass/Vol] 250 mg/dL Abnormal Negative [facility] Interpretation and review of laboratory results Abnormal [facility] Ketones (U) [Mass/Vol] 40 mg/dL = Moderate Abnormal Nega tive [facility] Leukocyte esterase Test strip Ql (U) Negative Negative [facility] Nitrite Ql (U) Negative Negative [facility] pH (U) 5.5 [pH] 5.0 - 7.0 [facility] Protein (U) [Mass/Vol] 30 mg/dL Abnormal Negative [facility] RBC (U) [#/Vol] Negative Negative [facility] RBC LM.HPF (Urine sed) [#/Area] 3-5 Abnormal [facility] Specific gravity (U) [Rel density] 1.018 1.001 - 1.035 [facility] Urobilinogen (U) [Mass/Vol] 0.2 E.U./dL 0.2 E.U/dL, 1.0 E.U/dL [facility] WBC LM.HPF (Urine sed) [#/Area] 6 - 10 Abnormal [facility] Appearance (U) Clear Normal Clear [place] Comment on above: Order Comment: For i ndwelling catheters, specimen collection is acceptable on catheter day 1 and 2 only. ? Performed By: #### X M #### [facility] (DEFAULT) [address] [place] [address] Bacteria ABSENT Normal ABSENT [place] Comment on above: Order Comment: For i ndwelling catheters, specimen collection is acceptable on catheter day 1 and 2 only. ? Performed By: #### X M #### [facility] (DEFAULT) [address] [place] [address] Blood Urine Negative Normal Negative [place] Comment on above: Order Comment: For i ndwelling catheters, specimen collection is acceptable on catheter day 1 and 2 only. ? Performed By: #### X M #### [facility] (DEFAULT) [address] [place] [address] Color (U) Yellow Normal Yellow [place] Comment on above: Order Comment: For i ndwelling catheters, specimen collection is acceptable on catheter day 1 and 2 only. ? Performed By: #### X M #### [facility] (DEFAULT) [address] [place] [address] Glucose Ql (U) 250 mg/dL Abnormal Negative [place] Comment on above: Order Comment: For i ndwelling catheters, specimen collection is acceptable on catheter day 1 and 2 only. ? Performed By: #### X M #### [facility] (DEFAULT) [address] [place] [address] Ketones Ql (U) 40 mg/dL = Moderate Abnormal Negative O [facility] Comment on above: Order Comment: For i ndwelling catheters, specimen collection is acceptable on catheter day 1 and 2 only. ? Performed By: #### X M #### [facility] (DEFAULT) [address] [place] [address] Leukocyte esterase Test strip Ql (U) Negative Normal Negative [place] Comment on above: Order Comment: For i ndwelling catheters, specimen collection is acceptable on catheter day 1 and 2 only. ? Performed By: #### X M #### [facility] (DEFAULT) [address] [place] [address] Nitrites Urine Negative Normal Negative [place] Comment on above: Order Comment: For i ndwelling catheters, specimen collection is acceptable on catheter day 1 and 2 only. ? Performed By: #### X M #### [facility] (DEFAULT) [address] [place] [address] pH (U) 5.5 [pH] Normal 5.0-7.0 [place] Comment on above: Order Comment: For i ndwelling catheters, specimen collection is acceptable on catheter day 1 and 2 only. ? Performed By: #### X M #### [facility] (DEFAULT) [address] [place] [address] Protein Urine 30 mg/dL Abnormal Negative [place] Comment on above: Order Comment: For i ndwelling catheters, specimen collection is acceptable on catheter day 1 and 2 only. ? Performed By: #### X M #### [facility] (DEFAULT) [address] [place] [address] RBC Urine 3-5 Abnormal 0-2 [place] Comment on above: Order Comment: For i ndwelling catheters, specimen collection is acceptable on catheter day 1 and 2 only. ? Performed By: #### X M #### [facility] (DEFAULT) [address] [place] [address] Specific [place] Urine 1.018 Normal 1.001-1.035 O [facility] Comment on above: Order Comment: For i ndwelling catheters, specimen collection is acceptable on catheter day 1 and 2 only. ? Performed By: #### X M #### [facility] (DEFAULT) [address] [place] [address] Squamous/Epithelial Cells, Urine 0-2/hpf Normal 0-2/hpf, 3-5/hpf = 1+ [place] Comment on above: Order Comment: For i ndwelling catheters, specimen collection is acceptable on catheter day 1 and 2 only. ? Performed By: #### X M #### [facility] (DEFAULT) [address] [place] [address] Urobilinogen Urine 0.2 E.U./dL Normal 0.2 E.U/d L, 1.0 E.U/dL [place] Comment on above: Order Comment: For i ndwelling catheters, specimen collection is acceptable on catheter day 1 and 2 only. ? Performed By: #### X M #### [facility] (DEFAULT) [address] [address] WBC Urine 6 - 10 Abnormal 0 - 5 [place] Comment on above: Order Comment: For i ndwelling catheters, specimen collection is acceptable on catheter day 1 and 2 only. ? Performed By: #### X M #### [facility] (DEFAULT) [address] [address] URINE DRUG SCREEN 10-16 Amphetamine/Methamphetami ne Not detected Normal Cutoff: 500 ng/mL [place] Comment on above: Order Comment: For m edical purposes only. Positive results are unconfirmed unless otherwise noted. Performed By: #### C HM7 #### [facility] (DEFAULT) [address] [address] Barbiturates Not detected Normal Cutoff: 200 ng/mL [place] Comment on above: Order Comment: For m edical purposes only. Positive results are unconfirmed unless otherwise noted. Performed By: #### C HM7 #### [facility] (DEFAULT) [address] [address] Benzodiazepines Positive Abnormal Cutoff: 200 ng/mL [place] Comment on above: Order Comment: For m edical purposes only. Positive results are unconfirmed unless otherwise noted. Performed By: #### C HM7 #### [facility] (DEFAULT) [address] [address] Buprenorphine Not detected Normal Cutoff: 5 ng/mL [place] Comment on above: Order Comment: For m edical purposes only. Positive results are unconfirmed unless otherwise noted. Performed By: #### C HM7 #### [facility] (DEFAULT) [address] [address] Cannabinoids Screen Ql (U) Not detected Normal Cutoff: 50 ng/mL [place] Comment on above: Order Comment: For m edical purposes only. Positive results are unconfirmed unless otherwise noted. Performed By: #### C HM7 #### [facility] (DEFAULT) [address] [address] Cocaine Not detected Normal Cutoff: 150 ng/mL [place] Comment on above: Order Comment: For m edical purposes only. Positive results are unconfirmed unless otherwise noted. Performed By: #### C HM7 #### [facility] (DEFAULT) [address] [address] Fentanyl Not detected Normal Cutoff: 1 ng/mL [place] Comment on above: Order Comment: For m edical purposes only. Positive results are unconfirmed unless otherwise noted. Performed By: #### C HM7 #### [facility] (DEFAULT) [address] [address] Methadone Not detected Normal Cutoff: 300 ng/mL [place] Comment on above: Order Comment: For edical purposes only. Positive results are unconfirmed unless otherwise noted. Performed By: #### C HM7 #### [facility] (DEFAULT) [address] [address] Opiates Not detected Normal Cutoff: 300 ng/mL [place] Comment on above: Order Comment: For edical purposes only. Positive results are unconfirmed unless otherwise noted. Performed By: #### C HM7 #### [facility] (DEFAULT) [address] [address] Oxycodone Positive Abnormal Cutoff: 100 ng/mL [place] Comment on above: Order Comment: For edical purposes only. Positive results are unconfirmed unless otherwise noted. Performed By: #### C HM7 #### [facility] (DEFAULT) [address] [address] Absolute lymphocyte countOrd ered By: Teja Avendano on 10-15-2024 Lymphocytes Auto (Unsp spec) [#/Vol] 1.38 10*3/uL 0.83-4.51 [facility] Absolute neutrophil countOrd ered By: Teja Avendano on 10-15-2024 Neutrophils (Bld) [#/Vol] 6.6 10*3/uL 2.0-7.7 [facility] Anaerobic cultureOrdered By: Ramon Garcia on 10-15-2024 Bacteria identified Anaer cx Nom (Unsp spec) No anaerobic bacteria isolated. [facility] Anion gap in Serum or Plasma Ordered By: Ozzy Cabrera on 10-15-2024 Anion gap [Moles/Vol] 8 mmol/L 5-15 [facility] Automated lymphocyte count a s percentage of total leukocytesOrdered By: Teja Avendano on 10-15-2024 Lymphocytes/100 WBC Auto (Unsp spec) 16.0 % Low 19-41 [facility] BUN/creatinine ratioOrdered By: Ozzy Cabrera on 10-15-2024 Urea nitrogen/Creatinine [Mass ratio] 19.4 mg/mg 10-20 [facility] Basic Metabolic Profile (BMP )on 10-15-2024 BUN/CRE 19.4 RATIO Normal 10-20 [facility] Comment on above: Performed By: #### L 500.2500 ####[facility] [address] [facility] [address] Calcium [Mass/Vol] 8.9 mg/dL Normal 7.6-11.0 [facility] Comment on above: Performed By: #### L 500.2500 ####[facility] [address] [place], [address] Chloride [Moles/Vol] 101 mmol/L Normal 98-108 [facility] Comment on above: Performed By: #### L 500.2500 ####[facility] [address] [facility] [address] CO2 [Moles/Vol] 26.1 mmol/L Normal 21.0-32.0 [facility] Comment on above: Performed By: #### L 500.2500 ####[facility] [address] [place], [address] Creatinine [Mass/Vol] 0.58 mg/dL Low 0.70-1.20 [facility] Comment on above: Performed By: #### L 500.2500 ####[facility] [address] [place], [address] ECRCL 126.34 ml/min Normal 50-250 [facility] Comment on above: Performed By: #### L 500.2500 ####[facility] [address] [place], [address] GAP 8 Normal 5-15 [facility] Comment on above: Performed By: #### L 500.2500 ####[facility] [address] [place], [address] GFR/1.73 sq M.predicted among non-blacks MDRD (S/P/Bld) [Vol rate/Area] 105 mL/min/{1.73_m2} Normal >60 [facility] Comment on above: Result Comment: mL/m in/1.73m2 CKD-EPI Creatinine Equation (2020) Performed By: #### L 500.2500 ####[facility] [address] [place], [address] Glucose [Mass/Vol] 260 mg/dL High 70-99 [facility] Comment on above: Performed By: #### L 500.2500 ####[facility] [address] [place], [address] Potassium [Moles/Vol] 4.5 mmol/L Normal 3.3-5.1 [facility] Comment on above: Performed By: #### L 500.2500 ####[facility] [address] [place], [address] Sodium [Moles/Vol] 136 mmol/L Normal 133-145 [facility] Comment on above: Performed By: #### L 500.2500 ####[facility] [address] [place], [address] Urea nitrogen [Mass/Vol] 11 mg/dL Normal 4-19 [facility] Comment on above: Performed By: #### L 500.2500 ####[facility] [address] [place], [address] Basophil percentageOrdered B y: Teja Avendano on 10-15-2024 Basophils/100 WBC (Bld) 0.6 % 0-1 [facility] Bedside Glucoseon 10-15-2024 FINGERSTICK GLU 181 mg/dL High 74-106 [facility] Comment on above: Result Comment: REYNA GEMENT OF PATIENT CARE PER NURSING PROTOCOL Performed By: #### L 501.080 ####[facility] [address] [place], [address] FINGERSTICK GLU 195 mg/dL High 74-106 [facility] Comment on above: Result Comment: REYNA GEMENT OF PATIENT CARE PER NURSING PROTOCOL Performed By: #### L 501.080 ####[facility] [address] [place], [address] FINGERSTICK GLU 201 mg/dL High 74-106 [facility] Comment on above: Result Comment: REYNA GEMENT OF PATIENT CARE PER NURSING PROTOCOL Performed By: #### L 501.080 ####[facility] [address] [place], [address] FINGERSTICK GLU 202 mg/dL High 74-106 [facility] Comment on above: Result Comment: REYNA GEMENT OF PATIENT CARE PER NURSING PROTOCOL Performed By: #### L 501.080 ####[facility] [facility] [address] [place], [address] CBC W/Diff, Automatedon 09-19 Absolute Lymph 1.38 X10 3/uL Normal 0.83-4.51 [facility] Comment on above: Performed By: #### L 100.0100 ####[facility] [address] [place], [address] Absolute Neut 6.6 X10 3/uL Normal 2.0-7.7 [facility] Comment on above: Performed By: #### L 100.0100 ####[facility] [address] [place], [address] Basophils/100 WBC (Bld) 0.6 % Normal 0-1 [facility] Comment on above: Performed By: #### L 100.0100 ####[facility] [address] [place], [address] Eosinophils/100 WBC (Bld) 1.8 % Normal 0-5 [facility] Comment on above: Performed By: #### L 100.0100 ####[facility] [address] [place], [address] Erythrocyte distribution width (RBC) [Ratio] 13.0 % Normal 11.6-14.6 [facility] Comment on above: Performed By: #### L 100.0100 ####[facility] [address] [place], [address] Hematocrit (Bld) [Volume fraction] 33.9 % Low 40-54 [facility] Comment on above: Performed By: #### L 100.0100 ####[facility] [address] [place], [address] Hemoglobin (Bld) [Mass/Vol] 11.4 g/dL Low 13.0-16.5 [facility] Comment on above: Performed By: #### L 100.0100 ####[facility] [address] [place], [address] IG% 0.600 Normal 0.0-0.9 [facility] Comment on above: Result Comment: IG% - Immature Granulocytes (promyelocytes, myelocytes andmetamyelocytes) > 1% indicates that a LEFT SHIFT is Present. Performed By: #### L 100.0100 ####[facility] [address] [place], [address] Lymphocytes/100 WBC (Bld) 16.0 % Low 19-41 [facility] Comment on above: Performed By: #### L 100.0100 ####[facility] [address] [place], [address] MCH (RBC) [Entitic mass] 27.0 pg Normal 27.0-32.0 [facility] Comment on above: Performed By: #### L 100.0100 ####[facility] [address] [place], [address] MCHC (RBC) [Mass/Vol] 33.6 g/dL Normal 32-36 [facility] Comment on above: Performed By: #### L 100.0100 ####[facility] [address] [place], [address] MCV (RBC) [Entitic vol] 80.3 fL Normal 80-94 [facility] Comment on above: Performed By: #### L 100.0100 ####[facility] [address] [place], [address] Monocytes/100 WBC (Bld) 4.5 % Normal 0-10 [facility] Comment on above: Performed By: #### L 100.0100 ####[facility] [address] [place], [address] Neutrophils/100 WBC (Bld) 76.5 % High 47-70 [facility] Comment on above: Performed By: #### L 100.0100 ####[facility] [address] [place], [address] Nucleated RBC (Bld) [#/Vol] 0 10*3/uL Normal 0-5 [facility] Comment on above: Performed By: #### L 100.0100 ####[facility] [address] [place], [address] Platelet mean volume (Bld) [Entitic vol] 9.4 fL Normal 6.2-12.0 [facility] Comment on above: Performed By: #### L 100.0100 ####[facility] [address] [place], [address] Platelets (Bld) [#/Vol] 248 10*3/uL Normal 150-450 [facility] Comment on above: Performed By: #### L 100.0100 ####[facility] [address] [place], [address] RBC (Bld) [#/Vol] 4.22 10*6/uL Low 4.6-6.2 [facility] Comment on above: Performed By: #### L 100.0100 ####[facility] [address] [place], [address] RDW SD 36.9 fl Normal 35.1-43.9 [facility] Comment on above: Performed By: #### L 100.0100 ####[facility] [address] [place], [address] WBC (Bld) [#/Vol] 8.7 10*3/uL Normal 4.4-11.0 [facility] Comment on above: Performed By: #### L 100.0100 ####[facility] [address] [place], [address] Calcaneus min 2 Viewson - Calcaneus min 2 Views Normal [facility] Carbon dioxide, total [Moles /volume] in Central venous bloodOrdered By: Ozzy Cabrera on 10-15-2024 CO2 [Moles/Vol] 26.1 mmol/L 21.0-32.0 [facility] Chloride assayOrdered By: Olimpia Cabrera on 10-15-2024 Chloride [Moles/Vol] 101 mmol/L 98-108 [facility] Eosinophil percentageOrdered By: Teja Avendano on 10-15-2024 Eosinophils/100 WBC (Bld) 1.8 % 0-5 [facility] Erythrocyte distribution wid th ratioOrdered By: Teja Avendano on 10-15-2024 Erythrocyte distribution width (RBC) [Ratio] 13.0 % 11.6-14.6 [facility] Erythrocyte distribution wid th standard deviationOrdered By: Teja Avendano on 10-15-2024 Erythrocyte distribution width (RBC) [Ratio] 36.9 fl 35.1-43.9 [facility] Glomerular filtration rate ( GFR) estimation/1.73 sq m using serum, plasma, or whole bOrdered By: Ozzy Cabrera on 10-15-2024 GFR/1.73 sq M.predicted among non-blacks MDRD (S/P/Bld) [Vol rate/Area] 105 mL/min/{1.73_m2} >60 [facility] Comment on above: mL/min/1.73m2 CKD-EP I Creatinine Equation (2020) Gram Stainon 10-15-2024 GS NO COLLECTION INFO GIVEN UNK UNK CALCANEAL BONE COLLECTED IN OR Gram Stain 1+ White Blood Cells 1+ Red Blood Cells No organisms seen Normal [facility] Comment on above: Performed By: #### M 100.2000, M100.3000, M100.4001 ####[facility] [address] [place], [address] Gram stainOrdered By: Ramon Garcia on 10-15-2024 Microscopic observation Gram stain Nom (Unsp spec) [facility] Hematocrit Auto (Bld) [Volum e fraction]Ordered By: Teja Avendano on 10-15-2024 Hematocrit (Bld) [Volume fraction] 33.9 % Low 40-54 [facility] Hemoglobin measurementOrdere d By: Teja Avendano on 10-15-2024 Hemoglobin (Bld) [Mass/Vol] 11.4 g/dL Low 13.0-16.5 [facility] Immature granulocytes/100 WB C Auto (Bld)Ordered By: Teja Avendano on 10-15-2024 Immature granulocytes/100 WBC (Bld) 0.600 % 0.0-0.9 [facility] Comment on above: IG% - Immature Granu locytes (promyelocytes, myelocytes and metamyelocytes) > 1% indicates that a LEFT SHIFT is Present. MCV (mean corpuscular volume ) determinationOrdered By: Teja Avendano on 10-15-2024 MCV (RBC) [Entitic vol] 80.3 fL 80-94 [facility] MR/POSTOP.ANEon 10-15-2024 MR/POSTOP.ANE Normal [facility] MR/ULFMXOVO7pt 10-15-2024 MR/POSTOPAN2 Normal [facility] Mean corpuscular hemoglobin (MCH) determinationOrdered By: Teja Avendano on 10-15-2024 MCH (RBC) [Entitic mass] 27.0 pg 27.0-32.0 [facility] Mean corpuscular hemoglobin concentration (MCHC) determinationOrdered By: Teja Avendano on 10-15-2024 MCHC (RBC) [Mass/Vol] 33.6 g/dL 32-36 [facility] Mean platelet volume determi nationOrdered By: Teja Avendano on 10-15-2024 Platelet mean volume (Bld) [Entitic vol] 9.4 fL 6.2-12.0 [facility] Monocyte percentageOrdered B y: Teja Avendano on 10-15-2024 Monocytes/100 WBC (Bld) 4.5 % 0-10 [facility] Neutrophil percentageOrdered By: Teja Avendano on 10-15-2024 Neutrophils/100 WBC (Bld) 76.5 % High 47-70 [facility] Nucleated red blood cell per centageOrdered By: Teja Avendano on 10-15-2024 Nucleated RBC/100 WBC (Bld) [Ratio] 0 % 0-5 [facility] Operative Reporton Operative Report Normal [facility] Platelet countOrdered By: Ruben Avendano on 10-15-2024 Platelets (Bld) [#/Vol] 248 10*3/uL 150-450 [facility] Potassium measurement (mass/ volume)Ordered By: Ozzy Cabrera on 10-15-2024 Potassium (Unsp spec) [Mass/Vol] 4.5 mmol/L 3.3-5.1 [facility] RBC Auto (Bld) [#/Vol]Ordere d By: Teja Avendano on 10-15-2024 RBC (Bld) [#/Vol] 4.22 10*6/uL Low 4.6-6.2 [facility] Serum creatinine measurement (mass/volume)Ordered By: Ozzy Cabrera on 10-15-2024 Creatinine [Mass/Vol] 0.58 mg/dL Low 0.70-1.20 [facility] Serum glucose measurement (m ass/volume)Ordered By: Ozzy Cabrera on 10-15-2024 Glucose [Mass/Vol] 260 mg/dL High 70-99 [facility] Serum or plasma calcium everardo urement (mass/volume)Ordered By: Ozzy Cabrera on 10-15-2024 Calcium [Mass/Vol] 8.9 mg/dL 7.6-11.0 [facility] Serum or plasma urea nitroge n measurement (mass/volume)Ordered By: Ozzy Cabrera on 10-15-2024 Urea nitrogen [Mass/Vol] 11 mg/dL 4-19 [facility] Sodium levelOrdered By: Ozzy Cabrera on 10-15-2024 Sodium [Moles/Vol] 136 mmol/L 133-145 [facility] Trough vancomycin levelOrder ed By: Ozzy Cabrera on 10-15-2024 Vancomycin trough [Mass/Vol] 21.7 ug/mL High 5.0-15.0 [facility] Comment on above: Recommended goal tro ugh [...] therapy recommended for serious lifethreatening infections include:- Fksigmhbkl-Hwxwhmkuhzgy-Klkpkdtpr (Ventilator/Healtcare Associated)-Sepsis PLEASE CONTACT PHARMACY SERVICES (#2209) FOR INTERPRETATIONOF RESULTS. Vancomycin, Trough Levelon 0 10-15-2024 VANCO, TROUGH 21.7 ug/mL High 5.0-15.0 [facility] Comment on above: Order Comment: Comme nts: DRAW 30 MIN PRIOR TO [id number] Result Comment: [place] mmended goal trough ranges [...] therapy recommended for serious lifethreatening infections include:- Kqvbkfolrj-Ueitooieoaqf-Ochygrbkm (Ventilator/Healtcare Associated)-SepsisPLEASE CONTACT PHARMACY SERVICES (#8885) FOR INTERPRETATIONOF RESULTS. Performed By: #### L 501.8820 ####[facility] [address] [facility] [address] White blood cell (WBC) count Ordered By: Teja Avendano on 10-15-2024 WBC (Bld) [#/Vol] 8.7 10*3/uL 4.4-11.0 [facility] Bedside Glucoseon 10-14-2024 FINGERSTICK GLU 260 mg/dL High [address] [place] [address] Comment on above: Result Comment: REYNA GEMENT OF PATIENT CARE PER NURSING PROTOCOL Performed By: #### L 501.080 ####[facility] [address] [facility] [address] FINGERSTICK GLU 250 mg/dL High [address] [place] [address] Comment on above: Result Comment: REYNA GEMENT OF PATIENT CARE PER NURSING PROTOCOL Performed By: #### L 501.080 ####[facility] [address] [facility] [address] FINGERSTICK GLU 279 mg/dL High [address] [place] [address] Comment on above: Result Comment: REYNA GEMENT OF PATIENT CARE PER NURSING PROTOCOL Performed By: #### L 501.080 ####[facility] [address] [facility] [address] FINGERSTICK GLU 178 mg/dL High 74-106 [facility] Comment on above: Result Comment: REYNA GEMENT OF PATIENT CARE PER NURSING PROTOCOL Performed By: #### L 501.080 ####[facility] [address] [place], [address] Wound Cultureon 10-14-2024 WC Normal [facility] Comment on above: Performed By: #### M 100.2000, M100.4001, M100.3000 ####[facility] [address] [place], [address] Bedside Glucoseon 10-13-2024 FINGERSTICK GLU 260 mg/dL High [address] [place] [address] Comment on above: Result Comment: REYNA GEMENT OF PATIENT CARE PER NURSING PROTOCOL Performed By: #### L 501.080 ####[facility] [address] [place], [address] FINGERSTICK GLU 297 mg/dL High [address] [place] [address] Comment on above: Result Comment: REYNA GEMENT OF PATIENT CARE PER NURSING PROTOCOL Performed By: #### L 501.080 ####[facility] [address] [place], [address] FINGERSTICK GLU 242 mg/dL High [address] [place] [address] Comment on above: Result Comment: REYNA GEMENT OF PATIENT CARE PER NURSING PROTOCOL Performed By: #### L 501.080 ####[facility] [address] [place], [address] FINGERSTICK GLU 253 mg/dL High [address] [place] [address] Comment on above: Result Comment: REYNA GEMENT OF PATIENT CARE PER NURSING PROTOCOL Performed By: #### L 501.080 ####[facility] [address] [place], [address] Culture, Anaerobic Any Sourc devonte 10-13-2024 CUAN #1 RIGHT HEEL WND (BONE) UNK UNK No anaerobic bacteria isolated. Normal [facility] Comment on above: Performed By: #### M 100.3000, M1.1999, M100.4001 ####[facility] [address] [place], [address] CUAN SWAB SPECIMENS AEROB IC 4, ANAEROBIC 5- R HEEL WOUND UNK UNK No anaerobic bacteria isolated. Normal [facility] Comment on above: Performed By: #### M 100.4001, M100.2999, ####[facility] [address] [place], [address] CUAN Normal [facility] Comment on above: Performed By: #### M 100.3000, M1.1999, M100.4001 ####[facility] [address] [place], [address] Serum Creatinine AND GFRon 0 - Creatinine [Mass/Vol] 0.64 mg/dL Low 0.70-1.20 [facility] Comment on above: Order Comment: Comme nts: PLEASE DO WITH THE VANC TROUGH Performed By: #### L 501.1105 ####[facility] [address] [place], [address] ECRCL 126.34 ml/min Normal 50-250 [facility] Comment on above: Order Comment: Comme nts: PLEASE DO WITH THE VANC TROUGH Performed By: #### L 501.1105 ####[facility] [address] [place], [address] GFR/1.73 sq M.predicted among non-blacks MDRD (S/P/Bld) [Vol rate/Area] 102 mL/min/{1.73_m2} Normal >60 [facility] Comment on above: Order Comment: Comme nts: PLEASE DO WITH THE VANC TROUGH Result Comment: mL/m in/1.73m2 CKD-EPI Creatinine Equation (2020) Performed By: #### L 501.1105 ####[facility] [address] [place], [place], [address] Serum or plasma vancomycin m easurement (mass/volume)Ordered By: Shaan Hurst on 10-13-2024 Vancomycin [Mass/Vol] 17.6 ug/mL High 0.0-15.0 [facility] Comment on above: VANCOMYCIN STANDARD DRUG THERAPY: CRITICAL VALUE IS > 15.0 mg/L VANCOMYCIN HIGH INTENSITY THERAPY: CRITICAL VALUE IS > 20.0 mg/L PLEASE CONTACT PHARMACY SERVICES (#0894) FOR INTERPRETATIONOF RESULTS. THIS RESULT DOES NOT REPRESENT A PEAK OR TROUGHLEVEL FOR THIS DRUG. Vancomycin, Random Levelon 0 10-13-2024 VANCO, RANDOM 17.6 ug/mL High 0.0-15.0 [facility] Comment on above: Result Comment: VANC OMYCIN STANDARD DRUG THERAPY: CRITICAL VALUE IS > 15.0 mg/LVANCOMYCIN HIGH INTENSITY THERAPY: CRITICAL VALUE IS > 20.0 mg/LPLEASE CONTACT PHARMACY SERVICES (#2891) FOR INTERPRETATIONOF RESULTS. THIS RESULT DOES NOT REPRESENT A PEAK OR TROUGHLEVEL FOR THIS DRUG. Performed By: #### L 501.8850 ####[facility] [address] [place], [place], [address] Vancomycin, Trough Levelon 0 10-13-2024 VANCO, TROUGH 23.8 ug/mL High 5.0-15.0 [facility] Comment on above: Order Comment: Comme nts: Trough to be drawn 30 mins prior to scheduled [id number] Result Comment: [place] mmended goal trough ranges [...] therapy recommended for serious lifethreatening infections include:- Semogujqvq-Isffavmtjmrk-Vwzcuupvg (Ventilator/Healtcare Associated)-SepsisPLEASE CONTACT PHARMACY SERVICES (#8140) FOR INTERPRETATIONOF RESULTS. Performed By: #### L 501.88 ####[facility] [address] [place], [address] Bedside Glucoseon 10-12-2024 FINGERSTICK GLU 285 mg/dL High [address] [place] [address] Comment on above: Result Comment: REYNA GEMENT OF PATIENT CARE PER NURSING PROTOCOL Performed By: #### L 501.080 ####[facility] [address] [place], [address] FINGERSTICK GLU 275 mg/dL High [address] [place] [address] Comment on above: Result Comment: REYNA GEMENT OF PATIENT CARE PER NURSING PROTOCOL Performed By: #### L 501.080 ####[facility] [address] [place], [address] FINGERSTICK GLU 294 mg/dL High [address] [place] [address] Comment on above: Result Comment: REYNA GEMENT OF PATIENT CARE PER NURSING PROTOCOL Performed By: #### L 501.080 ####[facility] [address] [place], [address] FINGERSTICK GLU 200 mg/dL High [address] [place] [address] Comment on above: Result Comment: REYNA GEMENT OF PATIENT CARE PER NURSING PROTOCOL Performed By: #### L 501.080 ####[facility] [address] [place], [address] CXR for Line Placementon CXR for Line Placement Normal [facility] CXR for Line Placement Normal [facility] CXR for Line Placement Normal [facility] Consultation - Infectious Dx on 10-12-2024 Consultation - Infectious Dx Normal [facility] Culture, Blood (WB)on 2024 CUB Normal [facility] Comment on above: Performed By: #### L 503.6005, BTS, L100.0100, L101.9900, L500.4050, M200.1000, L300.3900, L501.6710 ####[facility] [address] [place], [address] Gram Stainon 10-12-2024 GS 2-RIGHT HEEL WOUND UNK UNK Gram Stain 2+ Gram positive rods 2+ Gram positive cocci 1+ White Blood Cells Normal [facility] Comment on above: Performed By: #### M 100.2000, M100.4001, M100.3000 ####[facility] [address] [place], [address] GS SWAB SPECIMENS AEROB IC 4, ANAEROBIC 5- R HEEL WOUND UNK UNK Gram Stain No organisms seen Normal [facility] Comment on above: Performed By: #### M 100.4001, M100.3000, M100.2000 ####[facility] [address] [place], [address] GS #1 RIGHT HEEL WND (BONE) UNK UNK Gram Stain 2+ White Blood Cells No organisms seen Normal [facility] Comment on above: Performed By: #### M 100.3000, M100.2000, M100.4001 ####[facility] [address] [place], [address] Wound Cultureon 10-12-2024 WC #1 RIGHT HEEL WND (BONE) UNK UNK No growth aerobically. Normal [facility] Comment on above: Performed By: #### M 100.3000, M100.2000, M100.4001 ####[facility] [address] [place], [address] WC Normal [facility] Comment on above: Performed By: #### M 100.3000, M100.2000, M100.4001 ####[facility] [address] [place], [address] Anaerobic cultureOrdered By: Ramon Garcia on 10-11-2024 Bacteria identified Anaer cx Nom (Unsp spec) Anaerobic cocci Abnormal [facility] Bacteria identified Anaer cx Nom (Unsp spec) Bacteroides thetaiotaomicron Abnormal [facility] Bacteria identified Anaer cx Nom (Unsp spec) Clostridium ramosum Abnormal [facility] Bacteria identified Anaer cx Nom (Unsp spec) No anaerobic bacteria isolated. [facility] Bacteria identified Anaer cx Nom (Unsp spec) No anaerobic bacteria isolated. [facility] Bedside Glucoseon 10-11-2024 FINGERSTICK GLU 261 mg/dL High 74-106 [facility] Comment on above: Result Comment: REYNA GEMENT OF PATIENT CARE PER NURSING PROTOCOL Performed By: #### L 501.080 ####[facility] [address] [place], [address] FINGERSTICK GLU 272 mg/dL High 74-106 [facility] Comment on above: Result Comment: REYNA GEMENT OF PATIENT CARE PER NURSING PROTOCOL Performed By: #### L 501.080 ####[facility] [address] [place], [address] FINGERSTICK GLU 221 mg/dL High 74-106 [facility] Comment on above: Result Comment: REYNA GEMENT OF PATIENT CARE PER NURSING PROTOCOL Performed By: #### L 501.080 ####[facility] [address] [place], [address] FINGERSTICK GLU 230 mg/dL High 74-106 [facility] Comment on above: Result Comment: REYNA GEMENT OF PATIENT CARE PER NURSING PROTOCOL Performed By: #### L 501.080 ####[facility] [address] [place], [address] FINGERSTICK GLU 291 mg/dL High 74-106 [facility] Comment on above: Result Comment: REYNA GEMENT OF PATIENT CARE PER NURSING PROTOCOL Performed By: #### L 501.080 ####[facility] [address] [place], [address] Culture, Blood (WB)on 2024 CUB Normal [facility] Comment on above: Performed By: #### M 200.1000 ####[facility] [address] [place], [address] Gram stainOrdered By: Ramon Garcia on 10-11-2024 Microscopic observation Gram stain Nom (Unsp spec) [facility] Microscopic observation Gram stain Nom (Unsp spec) [facility] Microscopic observation Gram stain Nom (Unsp spec) [facility] MR/POSTOP.ANEon 10-11-2024 MR/POSTOP.ANE Normal [facility] MR/BQHWLOFP3il 10-11-2024 MR/POSTOPAN2 Normal [facility] Operative Reporton Operative Report Normal [facility] Routine wound cultureOrdered By: Ramon Garcia on 10-11-2024 Microbial culture, routine Streptococcus mitis/ oralis Abnormal [facility] Microbial culture, routine Morganella morganii sp sibonii Abnormal [facility] Microbial culture, routine Corynebacterium urealyticum Abnormal [facility] Surgery Specimen Level IIIon 10-11-2024 Surgery Specimen Level III Normal [facility] Comment on above: Performed By: #### P SUIII ####[facility] [address] [facility] [place], [place], [id number] TSH DL <= 0.005 mIU/L QnOrde red By: Francisco Abarca on 10-11-2024 TSH Qn 0.848 uIU/mL 0.300-4.200 [facility] Thyroid Stim Hormone (TSH)on 10-11-2024 TSH 0.848 uIU/mL Normal 0.300-4.200 [facility] Comment on above: Performed By: #### L 501.9561 ####[facility] [address] [facility] [place], [place], [id number] Vancomycin, Trough Levelon 0 10-11-2024 VANCO, TROUGH 14.2 ug/mL Normal 5.0-15.0 [facility] Comment on above: Order Comment: 0300 Result [...] therapy recommended for serious lifethreatening infections include:- Vrapylldef-Jvilrvbqvsmk-Phnebchjk (Ventilator/Healtcare Associated)-SepsisPLEASE CONTACT PHARMACY SERVICES (#2102) FOR INTERPRETATIONOF RESULTS. Performed By: #### L 501.8820 ####[facility] [address] [place], [address] Basic Metabolic Profile (BMP )on 10-10-2024 BUN/CRE 12.0 RATIO Normal 10-20 [facility] Comment on above: Performed By: #### L 500.2500, L501.9985, L100.0100 ####[facility] [address] [place], [address] Calcium [Mass/Vol] 8.5 mg/dL Normal 7.6-11.0 [facility] Comment on above: Performed By: #### L 500.2500, L501.9985, L100.0100 ####[facility] [address] [place], [address] Chloride [Moles/Vol] 98 mmol/L Normal 98-108 [facility] Comment on above: Performed By: #### L 500.2500, L501.9985, L100.0100 ####[facility] [address] [place], [address] CO2 [Moles/Vol] 27.0 mmol/L Normal 21.0-32.0 [facility] Comment on above: Performed By: #### L 500.2500, L501.9985, L100.0100 ####[facility] [address] [place], [address] Creatinine [Mass/Vol] 0.65 mg/dL Low 0.70-1.20 [facility] Comment on above: Performed By: #### L 500.2500, L501.9985, L100.0100 ####[facility] [address] [place], [address] ECRCL 126.34 ml/min Normal 50-250 [facility] Comment on above: Performed By: #### L 500.2500, L501.9985, L100.0100 ####[facility] [address] [place], [address] GAP 11 Normal 5-15 [facility] Comment on above: Performed By: #### L 500.2500, L501.9985, L100.0100 ####[facility] [address] [place], [address] GFR/1.73 sq M.predicted among non-blacks MDRD (S/P/Bld) [Vol rate/Area] 101 mL/min/{1.73_m2} Normal >60 [facility] Comment on above: Result Comment: mL/m in/1.73m2 CKD-EPI Creatinine Equation (2020) Performed By: #### L 500.2500, L501.9985, L100.0100 ####[facility] [address] [place], [address] Glucose [Mass/Vol] 254 mg/dL High 70-99 [facility] Comment on above: Performed By: #### L 500.2500, L501.9985, L100.0100 ####[facility] [address] [place], [address] Potassium [Moles/Vol] 4.2 mmol/L Normal 3.3-5.1 [facility] Comment on above: Performed By: #### L 500.2500, L501.9985, L100.0100 ####[facility] [address] [place], [address] Sodium [Moles/Vol] 136 mmol/L Normal 133-145 [facility] Comment on above: Performed By: #### L 500.2500, L501.9985, L100.0100 ####[facility] [address] [place], [address] Urea nitrogen [Mass/Vol] 8 mg/dL Normal 4-19 [facility] Comment on above: Performed By: #### L 500.2500, L501.9985, L100.0100 ####[facility] [address] [place], [address] Bedside Glucoseon 10-10-2024 FINGERSTICK GLU 298 mg/dL High 74-106 [facility] Comment on above: Result Comment: REYNA GEMENT OF PATIENT CARE PER NURSING PROTOCOL Performed By: #### L 501.080 ####[facility] [address] [place], [address] FINGERSTICK GLU 287 mg/dL High 74-106 [facility] Comment on above: Result Comment: REYNA GEMENT OF PATIENT CARE PER NURSING PROTOCOL Performed By: #### L 501.080 ####[facility] [address] [place], [address] FINGERSTICK GLU 304 mg/dL High 74-106 [facility] Comment on above: Result Comment: REYNA GEMENT OF PATIENT CARE PER NURSING PROTOCOL Performed By: #### L 501.080 ####[facility] [address] [place], [address] FINGERSTICK GLU 268 mg/dL High 74-106 [facility] Comment on above: Result Comment: REYNA GEMENT OF PATIENT CARE PER NURSING PROTOCOL Performed By: #### L 501.080 ####[facility] [address] [place], [address] CBC W/Diff, Automatedon - Absolute Lymph 1.60 X10 3/uL Normal 0.83-4.51 [facility] Comment on above: Performed By: #### L 500.2500, L501.9985, L100.0100 ####[facility] [address] [place], [address] Absolute Neut 5.1 X10 3/uL Normal 2.0-7.7 [facility] Comment on above: Performed By: #### L 500.2500, L501.9985, L100.0100 ####[facility] [address] [place], [address] Basophils/100 WBC (Bld) 0.5 % Normal 0-1 [facility] Comment on above: Performed By: #### L 500.2500, L501.9985, L100.0100 ####[facility] [address] [place], [address] Eosinophils/100 WBC (Bld) 2.3 % Normal 0-5 [facility] Comment on above: Performed By: #### L 500.2500, L501.9985, L100.0100 ####[facility] [address] [place], [address] Erythrocyte distribution width (RBC) [Ratio] 12.9 % Normal 11.6-14.6 [facility] Comment on above: Performed By: #### L 500.2500, L501.9985, L100.0100 ####[facility] [address] [place], [address] Hematocrit (Bld) [Volume fraction] 36.7 % Low 40-54 [facility] Comment on above: Performed By: #### L 500.2500, L501.9985, L100.0100 ####[facility] [address] [place], [address] Hemoglobin (Bld) [Mass/Vol] 12.2 g/dL Low 13.0-16.5 [facility] Comment on above: Performed By: #### L 500.2500, L501.9985, L100.0100 ####[facility] [address] [place], [address] IG% 0.400 Normal 0.0-0.9 [facility] Comment on above: Result Comment: IG% - Immature Granulocytes (promyelocytes, myelocytes andmetamyelocytes) > 1% indicates that a LEFT SHIFT is Present. Performed By: #### L 500.2500, L501.9985, L100.0100 ####[facility] [address] [place], [address] Lymphocytes/100 WBC (Bld) 21.2 % Normal 19-41 [facility] Comment on above: Performed By: #### L 500.2500, L501.9985, L100.0100 ####[facility] [address] [place], [address] MCH (RBC) [Entitic mass] 27.4 pg Normal 27.0-32.0 [facility] Comment on above: Performed By: #### L 500.2500, L501.9985, L100.0100 ####[facility] [address] [place], [address] MCHC (RBC) [Mass/Vol] 33.2 g/dL Normal 32-36 [facility] Comment on above: Performed By: #### L 500.2500, L501.9985, L100.0100 ####[facility] [address] [place], [address] MCV (RBC) [Entitic vol] 82.5 fL Normal 80-94 [facility] Comment on above: Performed By: #### L 500.2500, L501.9985, L100.0100 ####[facility] [address] [place], [address] Monocytes/100 WBC (Bld) 8.2 % Normal 0-10 [facility] Comment on above: Performed By: #### L 500.2500, L501.9985, L100.0100 ####[facility] [address] [place], [address] Neutrophils/100 WBC (Bld) 67.4 % Normal 47-70 [facility] Comment on above: Performed By: #### L 500.2500, L501.9985, L100.0100 ####[facility] [address] [place], [address] Nucleated RBC (Bld) [#/Vol] 0 10*3/uL Normal 0-5 [facility] Comment on above: Performed By: #### L 500.2500, L501.9985, L100.0100 ####[facility] [address] [place], [address] Platelet mean volume (Bld) [Entitic vol] 9.7 fL Normal 6.2-12.0 [facility] Comment on above: Performed By: #### L 500.2500, L501.9985, L100.0100 ####[facility] [address] [place], [address] Platelets (Bld) [#/Vol] 231 10*3/uL Normal 150-450 [facility] Comment on above: Performed By: #### L 500.2500, L501.9985, L100.0100 ####[facility] [address] [place], [address] RBC (Bld) [#/Vol] 4.45 10*6/uL Low 4.6-6.2 [facility] Comment on above: Performed By: #### L 500.2500, L501.9985, L100.0100 ####[facility] [address] [place], [address] RDW SD 38.8 fl Normal 35.1-43.9 [facility] Comment on above: Performed By: #### L 500.2500, L501.9985, L100.0100 ####[facility] [address] [place], [address] WBC (Bld) [#/Vol] 7.5 10*3/uL Normal 4.4-11.0 [facility] Comment on above: Performed By: #### L 500.2500, L501.9985, L100.0100 ####[facility] [address] [place], [address] Gram Stainon 10-10-2024 GS List Antibiotics [place] t 48 Hours? merrem List Antibiotics to be Started? vancomycin right heel Gram Stain 3+ Gram positive cocci 3+ Gram negative rods Rare Gram positive rods No cells seen Normal [facility] Comment on above: Performed By: #### M 100.3000, M100.2000, M100.4001 ####[facility] [address] [place], [address] Hemoglobin A1con 10-10-2024 HbA1c (Bld) [Mass fraction] 10.9 % High <=5.6 [facility] Comment on above: Result Comment: Norm al < 5.7 % Prediabetic 5.7 - 6.4 % Diabetic >or= 6.5 % Please note range changes. Performed By: #### L 500.2500, L501.9985, L100.0100 ####[facility] [address] [place], [address] Hemoglobin A1c percentageOrd ered By: Chula Antunez on 10-10-2024 HbA1c (Bld) [Mass fraction] 10.9 % High <5.7 [facility] Comment on above: Normal < 5.7 % Predi abetic 5.7 - 6.4 % Diabetic >or= 6.5 % Please note range changes. Lower Ext Joint Only (Routin e)on 10-10-2024 Lower Ext Joint Only (Routine) Normal [facility] Absolute neutrophil countOrd ered By: Logan Gifford on 2024 Neutrophils (Bld) [#/Vol] 9.4 10*3/uL High 2.0-7.7 [facility] Activated partial thrombopla stin time (aPTT) in platelet poor plasma by coagulation aOrdered By: Logan Gifford on 2024 aPTT Coag (PPP) [Time] 32.3 s 24.1-36.2 [facility] Anaerobic cultureOrdered By: Logan Gifford on 2024 Bacteria identified Anaer cx Nom (Unsp spec) Bacteroides thetaiotaomicron Abnormal [facility] Bacteria identified Anaer cx Nom (Unsp spec) Clostridium ramosum Abnormal [facility] Anion gap in Serum or Plasma Ordered By: Logan Gifford on 2024 Anion gap [Moles/Vol] 14 mmol/L 5-15 [facility] BUN/creatinine ratioOrdered By: Logan Gifford on 2024 Urea nitrogen/Creatinine [Mass ratio] 9.6 mg/mg Low 10-20 [facility] Basophil percentageOrdered B y: Logan Gifford on 2024 Basophils/100 WBC (Bld) 0.4 % 0-1 [facility] Bedside Glucoseon 2024 FINGERSTICK GLU 306 mg/dL High 74-106 [facility] Comment on above: Result Comment: REYNA GEMENT OF PATIENT CARE PER NURSING PROTOCOL Performed By: #### L 501.080 ####[facility] [address] [place], [place], [address] FINGERSTICK GLU 320 mg/dL High [address] [place] [address] Comment on above: Result Comment: REYNA GEMENT OF PATIENT CARE PER NURSING PROTOCOL Performed By: #### L 501.080 ####[facility] [address] [facility] [place], [place], [address] Bilirubin, totalOrdered By: Logan Gifford on 2024 Bilirubin [Mass/Vol] 0.88 mg/dL 0.00-1.30 [facility] Blood cultureOrdered By: Aurelio Gifford on 2024 Bacteria identified Cx Nom (Bld) Negative Abnormal [facility] Bacteria identified Cx Nom (Bld) Staphylococcus epidermidis Abnormal [facility] CBC W/Diff, Automatedon 09-19 Absolute Lymph 1.04 X10 3/uL Normal 0.83-4.51 [facility] Comment on above: Performed By: #### L 503.6005, BTS, L100.0100, L101.9900, L500.4050, M200.1000, L300.3900, L501.6710 ####[facility] [address] [place], [address] Absolute Neut 9.4 X10 3/uL High 2.0-7.7 [facility] Comment on above: Performed By: #### L 503.6005, BTS, L100.0100, L101.9900, L500.4050, M200.1000, L300.3900, L501.6710 ####[facility] [address] [place], [address] Basophils/100 WBC (Bld) 0.4 % Normal 0-1 [facility] Comment on above: Performed By: #### L 503.6005, BTS, L100.0100, L101.9900, L500.4050, M200.1000, L300.3900, L501.6710 ####[facility] [address] [place], [address] Eosinophils/100 WBC (Bld) 0.7 % Normal 0-5 [facility] Comment on above: Performed By: #### L 503.6005, BTS, L100.0100, L101.9900, L500.4050, M200.1000, L300.3900, L501.6710 ####[facility] [address] [place], [address] Erythrocyte distribution width (RBC) [Ratio] 12.8 % Normal 11.6-14.6 [facility] Comment on above: Performed By: #### L 503.6005, BTS, L100.0100, L101.9900, L500.4050, M200.1000, L300.3900, L501.6710 ####[facility] [address] [place], [address] Hematocrit (Bld) [Volume fraction] 38.6 % Low 40-54 [facility] Comment on above: Performed By: #### L 503.6005, BTS, L100.0100, L101.9900, L500.4050, M200.1000, L300.3900, L501.6710 ####[facility] [address] [place], [address] Hemoglobin (Bld) [Mass/Vol] 12.8 g/dL Low 13.0-16.5 [facility] Comment on above: Performed By: #### L 503.6005, BTS, L100.0100, L101.9900, L500.4050, M200.1000, L300.3900, L501.6710 ####[facility] [address] [place], [address] IG% 0.400 Normal 0.0-0.9 [facility] Comment on above: Result Comment: IG% - Immature Granulocytes (promyelocytes, myelocytes andmetamyelocytes) > 1% indicates that a LEFT SHIFT is Present. Performed By: #### L 503.6005, BTS, L100.0100, L101.9900, L500.4050, M200.1000, L300.3900, L501.6710 ####[facility] [address] [place], [address] Lymphocytes/100 WBC (Bld) 9.2 % Low 19-41 [facility] Comment on above: Performed By: #### L 503.6005, BTS, L100.0100, L101.9900, L500.4050, M200.1000, L300.3900, L501.6710 ####[facility] [address] [place], [address] MCH (RBC) [Entitic mass] 26.8 pg Low 27.0-32.0 [facility] Comment on above: Performed By: #### L 503.6005, BTS, L100.0100, L101.9900, L500.4050, M200.1000, L300.3900, L501.6710 ####[facility] [address] [place], [address] MCHC (RBC) [Mass/Vol] 33.2 g/dL Normal 32-36 [facility] Comment on above: Performed By: #### L 503.6005, BTS, L100.0100, L101.9900, L500.4050, M200.1000, L300.3900, L501.6710 ####[facility] [address] [place], [address] MCV (RBC) [Entitic vol] 80.8 fL Normal 80-94 [facility] Comment on above: Performed By: #### L 503.6005, BTS, L100.0100, L101.9900, L500.4050, M200.1000, L300.3900, L501.6710 ####[facility] [address] [place], [address] Monocytes/100 WBC (Bld) 6.5 % Normal 0-10 [facility] Comment on above: Performed By: #### L 503.6005, BTS, L100.0100, L101.9900, L500.4050, M200.1000, L300.3900, L501.6710 ####[facility] [address] [place], [address] Neutrophils/100 WBC (Bld) 82.8 % High 47-70 [facility] Comment on above: Performed By: #### L 503.6005, BTS, L100.0100, L101.9900, L500.4050, M200.1000, L300.3900, L501.6710 ####[facility] [address] [place], [address] Nucleated RBC (Bld) [#/Vol] 0 10*3/uL Normal 0-5 [facility] Comment on above: Performed By: #### L 503.6005, BTS, L100.0100, L101.9900, L500.4050, M200.1000, L300.3900, L501.6710 ####[facility] [address] [place], [address] Platelet mean volume (Bld) [Entitic vol] 9.8 fL Normal 6.2-12.0 [facility] Comment on above: Performed By: #### L 503.6005, BTS, L100.0100, L101.9900, L500.4050, M200.1000, L300.3900, L501.6710 ####[facility] [address] [place], [address] Platelets (Bld) [#/Vol] 243 10*3/uL Normal 150-450 [facility] Comment on above: Performed By: #### L 503.6005, BTS, L100.0100, L101.9900, L500.4050, M200.1000, L300.3900, L501.6710 ####[facility] [address] [place], [address] RBC (Bld) [#/Vol] 4.78 10*6/uL Normal 4.6-6.2 [facility] Comment on above: Performed By: #### L 503.6005, BTS, L100.0100, L101.9900, L500.4050, M200.1000, L300.3900, L501.6710 ####[facility] [address] [place], [address] RDW SD 37.2 fl Normal 35.1-43.9 [facility] Comment on above: Performed By: #### L 503.6005, BTS, L100.0100, L101.9900, L500.4050, M200.1000, L300.3900, L501.6710 ####[facility] [address] [place], [address] WBC (Bld) [#/Vol] 11.3 10*3/uL High 4.4-11.0 [facility] Comment on above: Performed By: #### L 503.6005, BTS, L100.0100, L101.9900, L500.4050, M200.1000, L300.3900, L501.6710 ####[facility] [address] [place], [address] CRPon 2024 C-REACTIVE PROT 141.00 mg/L High 0.0-3.0 [facility] Comment on above: Performed By: #### L 503.6005, BTS, L100.0100, L101.9900, L500.4050, M200.1000, L300.3900, L501.6710 ####[facility] [address] [place], [address] CRP [Mass/Vol]Ordered By: Master Gifford on 2024 C-Reactive Protein Extended Range 141.00 mg/L High 0.0-3.0 [facility] Carbon dioxide, total [Moles /volume] in Central venous bloodOrdered By: Logan Gifford on 2024 CO2 [Moles/Vol] 27.8 mmol/L 21.0-32.0 [facility] Chest 1 View (Portable)on Chest 1 View (Portable) Normal [facility] Chloride assayOrdered By: Master Gifford on 2024 Chloride [Moles/Vol] 93 mmol/L Low 98-108 [facility] Comprehensive Metabolic Prof ilon 2024 Albumin [Mass/Vol] 3.5 g/dL Normal 3.4-4.8 [facility] Comment on above: Performed By: #### L 503.6005, BTS, L100.0100, L101.9900, L500.4050, M200.1000, L300.3900, L501.6710 ####[facility] [address] [place], [address] Albumin/Globulin [Mass ratio] 0.9 {ratio} Normal 0.9-2.4 [facility] Comment on above: Performed By: #### L 503.6005, BTS, L100.0100, L101.9900, L500.4050, M200.1000, L300.3900, L501.6710 ####[facility] [address] [place], [address] ALK PHOS 104 U/L Normal 40-129 [facility] Comment on above: Performed By: #### L 503.6005, BTS, L100.0100, L101.9900, L500.4050, M200.1000, L300.3900, L501.6710 ####[facility] [address] [place], [address] ALT [Catalytic activity/Vol] 11 U/L Normal <=46 [facility] Comment on above: Performed By: #### L 503.6005, BTS, L100.0100, L101.9900, L500.4050, M200.1000, L300.3900, L501.6710 ####[facility] [address] [place], [address] AST [Catalytic activity/Vol] 18 U/L Normal <=37 [facility] Comment on above: Performed By: #### L 503.6005, BTS, L100.0100, L101.9900, L500.4050, M200.1000, L300.3900, L501.6710 ####[facility] [address] [place], [address] Bilirubin [Mass/Vol] 0.88 mg/dL Normal 0.00-1.30 [facility] Comment on above: Performed By: #### L 503.6005, BTS, L100.0100, L101.9900, L500.4050, M200.1000, L300.3900, L501.6710 ####[facility] [address] [place], [address] BUN/CRE 9.6 RATIO Low 10-20 [facility] Comment on above: Performed By: #### L 503.6005, BTS, L100.0100, L101.9900, L500.4050, M200.1000, L300.3900, L501.6710 ####[facility] [address] [place], [address] Calcium [Mass/Vol] 9.0 mg/dL Normal 7.6-11.0 [facility] Comment on above: Performed By: #### L 503.6005, BTS, L100.0100, L101.9900, L500.4050, M200.1000, L300.3900, L501.6710 ####[facility] [address] [place], [address] Chloride [Moles/Vol] 93 mmol/L Low 98-108 [facility] Comment on above: Performed By: #### L 503.6005, BTS, L100.0100, L101.9900, L500.4050, M200.1000, L300.3900, L501.6710 ####[facility] [address] [place], [address] CO2 [Moles/Vol] 27.8 mmol/L Normal 21.0-32.0 [facility] Comment on above: Performed By: #### L 503.6005, BTS, L100.0100, L101.9900, L500.4050, M200.1000, L300.3900, L501.6710 ####[facility] [address] [place], [address] Creatinine [Mass/Vol] 0.81 mg/dL Normal 0.70-1.20 [facility] Comment on above: Performed By: #### L 503.6005, BTS, L100.0100, L101.9900, L500.4050, M200.1000, L300.3900, L501.6710 ####[facility] [address] [place], [address] GAP 14 Normal 5-15 [facility] Comment on above: Performed By: #### L 503.6005, BTS, L100.0100, L101.9900, L500.4050, M200.1000, L300.3900, L501.6710 ####[facility] [address] [place], [address] GFR/1.73 sq M.predicted among non-blacks MDRD (S/P/Bld) [Vol rate/Area] 95 mL/min/{1.73_m2} Normal >60 [facility] Comment on above: Result Comment: mL/m in/1.73m2 CKD-EPI Creatinine Equation (2020) Performed By: #### L 503.6005, BTS, L100.0100, L101.9900, L500.4050, M200.1000, L300.3900, L501.6710 ####[facility] [address] [place], [address] Globulin (S) [Mass/Vol] 3.8 g/dL Normal 2.2-4.2 [facility] Comment on above: Performed By: #### L 503.6005, BTS, L100.0100, L101.9900, L500.4050, M200.1000, L300.3900, L501.6710 ####[facility] [address] [place], [address] Glucose [Mass/Vol] 384 mg/dL High 70-99 [facility] Comment on above: Performed By: #### L 503.6005, BTS, L100.0100, L101.9900, L500.4050, M200.1000, L300.3900, L501.6710 ####[facility] [address] [place], [address] Potassium [Moles/Vol] 3.9 mmol/L Normal 3.3-5.1 [facility] Comment on above: Performed By: #### L 503.6005, BTS, L100.0100, L101.9900, L500.4050, M200.1000, L300.3900, L501.6710 ####[facility] [address] [place], [address] Sodium [Moles/Vol] 134 mmol/L Normal 133-145 [facility] Comment on above: Performed By: #### L 503.6005, BTS, L100.0100, L101.9900, L500.4050, M200.1000, L300.3900, L501.6710 ####[facility] [address] [place], [address] T PROT 7.3 g/dL Normal 5.9-8.4 [facility] Comment on above: Performed By: #### L 503.6005, BTS, L100.0100, L101.9900, L500.4050, M200.1000, L300.3900, L501.6710 ####[facility] [address] [place], [address] Urea nitrogen [Mass/Vol] 8 mg/dL Normal 4-19 [facility] Comment on above: Performed By: #### L 503.6005, BTS, L100.0100, L101.9900, L500.4050, M200.1000, L300.3900, L501.6710 ####[facility] [address] [place], [place], [id number] Emergency Department Summary on 2024 Emergency Department Summary Normal [facility] Eosinophil percentageOrdered By: Logan Gifford on 2024 Eosinophils/100 WBC (Bld) 0.7 % 0-5 [facility] Erythrocyte Sed Rateon 10-09 SED RATE 30 mm/hr High 0-20 [facility] Comment on above: Performed By: #### L 503.6005, BTS, L100.0100, L101.9900, L500.4050, M200.1000, L300.3900, L501.6710 ####[facility] [address] [place], [place], [address] Erythrocyte distribution wid th (RBC) [Ratio]Ordered By: Logan Gifford on 2024 Erythrocyte distribution width (RBC) [Entitic vol] 37.2 fL 35.1-43.9 [facility] Erythrocyte distribution wid th ratioOrdered By: Logan Gifford on 2024 Erythrocyte distribution width (RBC) [Ratio] 12.8 % 11.6-14.6 [facility] Erythrocyte sedimentation ra teOrdered By: Logan Gifford on 2024 ESR (Bld) [Velocity] 30 mm/h High 0-20 [facility] Foot min 3 Viewson 5 Foot min 3 Views Normal [facility] GFR/1.73 sq M.predicted marco g non-blacks MDRD (S/P/Bld) [Vol rate/Area]Ordered By: Logan Gifford on 2024 Estimated GFR (MDRD) Non-Af Amer 95 >60 [facility] Comment on above: mL/min/1.73m2 CKD-EP I Creatinine Equation (2020) Glucose measurement at bedsi deOrdered By: Ramon Garcia on 2024 Glucose [Mass/Vol] 287 mg/dL High 74-106 [facility] Comment on above: MANAGEMENT OF PATIEN T CARE PER NURSING PROTOCOL Gram stainOrdered By: Logan mejias on 2024 Microscopic observation Gram stain Nom (Unsp spec) [facility] H AND P Exam - Hospitaliston 2024 H&P Exam - Hospitalist Normal [facility] Hematocrit Auto (Bld) [Volum e fraction]Ordered By: Logan Gifford on 2024 Hematocrit (Bld) [Volume fraction] 38.6 % Low 40-54 [facility] Hemoglobin measurementOrdere d By: Logan Gifford on 2024 Hemoglobin (Bld) [Mass/Vol] 12.8 g/dL Low 13.0-16.5 [facility] Immature granulocytes/100 WB C Auto (Bld)Ordered By: Logan Gifford on 2024 Immature granulocytes/100 WBC (Bld) 0.400 % 0.0-0.9 [facility] Comment on above: IG% - Immature Granu locytes (promyelocytes, myelocytes and metamyelocytes) > 1% indicates that a LEFT SHIFT is Present. International normalized rat io (INR) calculationOrdered By: Logan Gifford on 2024 INR Coag (Bld) [Relative time] 1.3 {INR} [facility] Laboratory - Chemistry and C hemistry - challengeOrdered By: Logan Gifford on 2024 AST [Catalytic activity/Vol] 18 U/L <38 [facility] Lactic Acidon 2024 Lactate [Moles/Vol] 3.6 mmol/L Invalid Interpretation Code 0.0-2.0 [facility] Comment on above: Order Comment: Y Result [...] BTS, L100.0100, L101.9900, L500.4050, M200.1000, L300.3900, L501.6710 ####[facility] [address] [place], [place], [id number] Lactate [Moles/Vol] 2.5 mmol/L Invalid Interpretation Code 0.0-2.0 [facility] Comment on above: Result Comment: Crit ical Result(s) Called LDOTTERER at: 1902 by:LEANNA??Results read back by same. Performed By: #### L 503.6005 ####[facility] [address] [place], [place], [id number] Lactic acid measurementOrder ed By: Logan Gifford on 2024 Lactate [Moles/Vol] 2.5 mmol/L High 0.0-2.0 [facility] Comment on above: Critical Result(s) C alled LDOTTERER at: 1902 by: LEANNA Results read back by same. Lactate [Moles/Vol] 3.6 mmol/L High 0.0-2.0 [facility] Comment on above: Critical Result(s) C alled at 1442: TO ACOLE by: KCLAPPER Results read back by same. Critical Result(s) Called at: by: Results read back by same.Previous reported result: 3.6 mmol/LEdited by: AUTOINS on 10/09/24:1501 AMENDED REPORT 10/09/24 1501 LACTIC ACID previously reported as: 3.6 *H mmol/L Critical Result(s) Called at 1442: TO ACOLE by: KCLAPPER Results read back by same. Lymphocytes Auto (Unsp spec) [#/Vol]Ordered By: Logan Gifford on 2024 Lymphocytes (Bld) [#/Vol] 1.04 10*3/uL 0.83-4.5 1 [facility] Lymphocytes/100 WBC Auto (Un sp spec)Ordered By: Logan Gifford on 2024 Lymphocytes/100 WBC (Bld) 9.2 % Low 19-41 [facility] MCV (mean corpuscular volume ) determinationOrdered By: Logan Gifford on 2024 MCV (RBC) [Entitic vol] 80.8 fL 80-94 [facility] Mean corpuscular hemoglobin (MCH) determinationOrdered By: Logan Gifford on 2024 MCH (RBC) [Entitic mass] 26.8 pg Low 27.0-32.0 [facility] Mean corpuscular hemoglobin concentration (MCHC) determinationOrdered By: Logan Gifford on 2024 MCHC (RBC) [Mass/Vol] 33.2 g/dL 32-36 [facility] Mean platelet volume determi nationOrdered By: Logan Gifford on 2024 Platelet mean volume (Bld) [Entitic vol] 9.8 fL 6.2-12.0 [facility] Monocyte percentageOrdered B y: Logan Gifford on 2024 Monocytes/100 WBC (Bld) 6.5 % 0-10 [facility] Neutrophil percentageOrdered By: Logan Gifford on 2024 Neutrophils/100 WBC (Bld) 82.8 % High 47-70 [facility] No Panel InformationOrdered By: Logan Gifford on 2024 18 U/L <38 [facility] Nucleated red blood cell per centageOrdered By: Logan Gifford on 2024 Nucleated RBC/100 WBC (Bld) [Ratio] 0 % 0-5 [facility] Partial Thromboplast Timeon 2024 aPTT Coag (Bld) [Time] 32.3 s Normal 24.1-36.2 [facility] Comment on above: Order Comment: CATALINA WEvette PREVIOUS SPECIMEN REJECTED DUE TOQNS. 10/09/24 1406 Karla Gomez. Performed By: #### L 300.5885, L300.4310 ####[facility] [address] [place], [address] Platelet countOrdered By: Master Gifford on 2024 Platelets (Bld) [#/Vol] 243 10*3/uL 150-450 [facility] Potassium (Unsp spec) [Mass/ Vol]Ordered By: Logan Gifford on 2024 Potassium [Moles/Vol] 3.9 mmol/L 3.3-5.1 [facility] Prothrombin Time w/INRon INR Coag (PPP) [Relative time] 1.3 {INR} Normal [facility] Comment on above: Order Comment: REDRA W. PREVIOUS SPECIMEN REJECTED DUE TOQNS. 10/09/241405 Karla Gomez. Performed By: #### L 300.3900, L300.4310 ####[facility] [address] [place], [address] PT Coag (PPP) [Time] 16.6 s High 11.7-14.9 [facility] Comment on above: Order Comment: REDRA W. PREVIOUS SPECIMEN REJECTED DUE TOQNS. 10/09/241405 Karla Gomez. Performed By: #### L 300.3900, L300.4310 ####[facility] [address] [place], [address] INR Normal [facility] Comment on above: Result Comment: This specimen has been REJECTED due to Laboratory criteria:Quanity Not Sufficient.JUANA has been notified of need of recollection.10/09/241404 Karla Gomez Performed By: #### L 503.6005, BTS, L100.0100, L101.9900, L500.4050, M200.1000, L300.3900, L501.6710 ####[facility] [address] [place], [address] PROTIME Normal 11.7-14.9 [facility] Comment on above: Result Comment: This specimen has been REJECTED due to Laboratory criteria:Quanity Not Sufficient.JUANA has been notified of need of recollection.10/09/241404 Karla Gomez Performed By: #### L 503.6005, BTS, L100.0100, L101.9900, L500.4050, M200.1000, L300.3900, L501.6710 ####[facility] [address] [place], [place], [id number] Prothrombin timeOrdered By: Logan Gifford on 2024 PT Coag (PPP) [Time] 16.6 s High 11.7-14.9 [facility] RBC Auto (Bld) [#/Vol]Ordere d By: Logan Gifford on 2024 RBC (Bld) [#/Vol] 4.78 10*6/uL 4.6-6.2 [facility] Serum creatinine measurement (mass/volume)Ordered By: Logan Gifford on 2024 Creatinine [Mass/Vol] 0.81 mg/dL 0.70-1.20 [facility] Serum globulin measurementOr dered By: Logan Gifford on 2024 Globulin (S) [Mass/Vol] 3.8 g/dL 2.2-4.2 [facility] Serum glucose measurement (m ass/volume)Ordered By: Logan Gifford on 2024 Glucose [Mass/Vol] 384 mg/dL High 70-99 [facility] Serum or plasma C reactive p rotein measurement (mass/volume)Ordered By: Logan Gifford 2024 CRP [Mass/Vol] 141.00 mg/L High 0.0-3.0 [facility] Serum or plasma alanine herrmann otransferase (ALT) measurementOrdered By: Logan Gifford 2024 ALT [Catalytic activity/Vol] 11 U/L <47 [facility] Serum or plasma albumin everardo urement (mass/volume)Ordered By: Logan Gifford 2024 Albumin [Mass/Vol] 3.5 g/dL 3.4-4.8 [facility] Serum or plasma albumin/glob ulin mass ratioOrdered By: Logan Gifford 2024 Albumin/Globulin [Mass ratio] 0.9 {ratio} 0.9-2.4 [facility] Serum or plasma alkaline kaiser sphatase measurementOrdered By: Logan Gifford 2024 ALP [Catalytic activity/Vol] 104 U/L 40-129 [facility] Serum or plasma calcium everardo urement (mass/volume)Ordered By: Logan Gifford on 2024 Calcium [Mass/Vol] 9.0 mg/dL 7.6-11.0 [facility] Serum or plasma urea nitroge n measurement (mass/volume)Ordered By: Logan Gifford on 2024 Urea nitrogen [Mass/Vol] 8 mg/dL 4-19 [facility] Sodium levelOrdered By: Logan Gifford on 2024 Sodium [Moles/Vol] 134 mmol/L 133-145 [facility] Total proteinOrdered By: Aurelio cezar Chau on 2024 Protein [Mass/Vol] 7.3 g/dL 5.9-8.4 [facility] Type AND Screenon 2024 ABO and Rh group Nom (Bld) Blood group A Rh(D) negative Normal [facility] Comment on above: Order Comment: S Performed By: #### L 503.6005, BTS, L100.0100, L101.9900, L500.4050, M200.1000, L300.3900, L501.6710 ####[facility] [address] [place], [address] White blood cell (WBC) count Ordered By: Logan Gifford on 2024 WBC (Bld) [#/Vol] 11.3 10*3/uL High 4.4-11.0 [facility] aPTT Coag (PPP) [Time]Ordere d By: Logan Gifford on 2024 aPTT Coag (Bld) [Time] 32.3 s 24.1-36.2 [facility] Prealbumin 77842at Prealbumin [Mass/Vol] 15 mg/dL Normal 10-36 [facility] Comment on above: Result Comment: Perf ormed at: - [facility] [address] [place], [place] [id number] Director: Valente Grossman PhD, Phone: [phone] Performed By: #### L 3300.6400, L100.0100, L501.9985, L500.4050 ####[facility] [address] [place], [address] Absolute lymphocyte countOrd ered By: Ramon Garcia on 09-28-2024 Lymphocytes Auto (Unsp spec) [#/Vol] 2.49 10*3/uL 0.83-4.51 [facility] Absolute neutrophil countOrd ered By: Ramon Garcia on 09-28-2024 Neutrophils (Bld) [#/Vol] 6.6 10*3/uL 2.0-7.7 [facility] Anion gap in Serum or Plasma Ordered By: Ramon Garcia on 09-28-2024 Anion gap [Moles/Vol] 16 mmol/L High 5-15 [facility] Automated lymphocyte count a s percentage of total leukocytesOrdered By: Ramon Garcia on 09-28-2024 Lymphocytes/100 WBC Auto (Unsp spec) 24.7 % 19-41 [facility] BUN/creatinine ratioOrdered By: Ramon Garcia on 09-28-2024 Urea nitrogen/Creatinine [Mass ratio] 17.5 mg/mg 10-20 [facility] Basophil percentageOrdered B y: Ramon Garcia on 09-28-2024 Basophils/100 WBC (Bld) 0.5 % 0-1 [facility] Bilirubin, totalOrdered By: Ramon Garcia on 09-28-2024 Bilirubin [Mass/Vol] 0.45 mg/dL 0.00-1.30 [facility] CBC W/Diff, Automatedon 09-18 Absolute Lymph 2.49 X10 3/uL Normal 0.83-4.51 [facility] Comment on above: Performed By: #### L 3300.6400, L100.0100, L501.9985, L500.4050 ####[facility] [address] [place], [address] Absolute Neut 6.6 X10 3/uL Normal 2.0-7.7 [facility] Comment on above: Performed By: #### L 3300.6400, L100.0100, L501.9985, L500.4050 ####[facility] [address] [place], [address] Basophils/100 WBC (Bld) 0.5 % Normal 0-1 [facility] Comment on above: Performed By: #### L 3300.6400, L100.0100, L501.9985, L500.4050 ####[facility] [address] [place], [address] Eosinophils/100 WBC (Bld) 2.8 % Normal 0-5 [facility] Comment on above: Performed By: #### L 3300.6400, L100.0100, L501.9985, L500.4050 ####[facility] [address] [place], [address] Erythrocyte distribution width (RBC) [Ratio] 13.2 % Normal 11.6-14.6 [facility] Comment on above: Performed By: #### L 3300.6400, L100.0100, L501.9985, L500.4050 ####[facility] [address] [place], [address] Hematocrit (Bld) [Volume fraction] 43.0 % Normal 40-54 [facility] Comment on above: Performed By: #### L 3300.6400, L100.0100, L501.9985, L500.4050 ####[facility] [address] [place], [address] Hemoglobin (Bld) [Mass/Vol] 14.2 g/dL Normal 13.0-16.5 [facility] Comment on above: Performed By: #### L 3300.6400, L100.0100, L501.9985, L500.4050 ####[facility] [address] [place], [address] IG% 0.400 Normal 0.0-0.9 [facility] Comment on above: Result Comment: IG% - Immature Granulocytes (promyelocytes, myelocytes andmetamyelocytes) > 1% indicates that a LEFT SHIFT is Present. Performed By: #### L 3300.6400, L100.0100, L501.9985, L500.4050 ####[facility] [address] [place], [address] Lymphocytes/100 WBC (Bld) 24.7 % Normal 19-41 [facility] Comment on above: Performed By: #### L 3300.6400, L100.0100, L501.9985, L500.4050 ####[facility] [address] [place], [address] MCH (RBC) [Entitic mass] 27.5 pg Normal 27.0-32.0 [facility] Comment on above: Performed By: #### L 3300.6400, L100.0100, L501.9985, L500.4050 ####[facility] [address] [place], [address] MCHC (RBC) [Mass/Vol] 33.0 g/dL Normal 32-36 [facility] Comment on above: Performed By: #### L 3300.6400, L100.0100, L501.9985, L500.4050 ####[facility] [address] [place], [address] MCV (RBC) [Entitic vol] 83.2 fL Normal 80-94 [facility] Comment on above: Performed By: #### L 3300.6400, L100.0100, L501.9985, L500.4050 ####[facility] [address] [place], [address] Monocytes/100 WBC (Bld) 6.0 % Normal 0-10 [facility] Comment on above: Performed By: #### L 3300.6400, L100.0100, L501.9985, L500.4050 ####[facility] [address] [place], [address] Neutrophils/100 WBC (Bld) 65.6 % Normal 47-70 [facility] Comment on above: Performed By: #### L 3300.6400, L100.0100, L501.9985, L500.4050 ####[facility] [address] [place], [address] Nucleated RBC (Bld) [#/Vol] 0 10*3/uL Normal 0-5 [facility] Comment on above: Performed By: #### L 3300.6400, L100.0100, L501.9985, L500.4050 ####[facility] [address] [place], [address] Platelet mean volume (Bld) [Entitic vol] 10.3 fL Normal 6.2-12.0 [facility] Comment on above: Performed By: #### L 3300.6400, L100.0100, L501.9985, L500.4050 ####[facility] [address] [place], [address] Platelets (Bld) [#/Vol] 252 10*3/uL Normal 150-450 [facility] Comment on above: Performed By: #### L 3300.6400, L100.0100, L501.9985, L500.4050 ####[facility] [address] [place], [address] RBC (Bld) [#/Vol] 5.17 10*6/uL Normal 4.6-6.2 [facility] Comment on above: Performed By: #### L 3300.6400, L100.0100, L501.9985, L500.4050 ####[facility] [address] [place], [address] RDW SD 40.0 fl Normal 35.1-43.9 [facility] Comment on above: Performed By: #### L 3300.6400, L100.0100, L501.9985, L500.4050 ####[facility] [address] [place], [address] WBC (Bld) [#/Vol] 10.1 10*3/uL Normal 4.4-11.0 [facility] Comment on above: Performed By: #### L 3300.6400, L100.0100, L501.9985, L500.4050 ####[facility] [address] [place], [address] Carbon dioxide, total [Moles /volume] in Central venous bloodOrdered By: Ramon Garcia on 09-28-2024 CO2 [Moles/Vol] 23.6 mmol/L 21.0-32.0 [facility] Chloride assayOrdered By: Juarez Garcia on 09-28-2024 Chloride [Moles/Vol] 97 mmol/L Low 98-108 [facility] Comprehensive Metabolic Prof ilon 09-28-2024 Albumin [Mass/Vol] 3.6 g/dL Normal 3.4-4.8 [facility] Comment on above: Performed By: #### L 3300.6400, L100.0100, L501.9985, L500.4050 ####[facility] [address] [place], [address] Albumin/Globulin [Mass ratio] 0.9 {ratio} Normal 0.9-2.4 [facility] Comment on above: Performed By: #### L 3300.6400, L100.0100, L501.9985, L500.4050 ####[facility] [address] [place], [address] ALK PHOS 133 U/L High 40-129 [facility] Comment on above: Performed By: #### L 3300.6400, L100.0100, L501.9985, L500.4050 ####[facility] [address] [place], [address] ALT [Catalytic activity/Vol] 15 U/L Normal <=46 [facility] Comment on above: Performed By: #### L 3300.6400, L100.0100, L501.9985, L500.4050 ####[facility] [address] [place], [address] AST [Catalytic activity/Vol] 23 U/L Normal <=37 [facility] Comment on above: Performed By: #### L 3300.6400, L100.0100, L501.9985, L500.4050 ####[facility] [address] [place], [address] Bilirubin [Mass/Vol] 0.45 mg/dL Normal 0.00-1.30 [facility] Comment on above: Performed By: #### L 3300.6400, L100.0100, L501.9985, L500.4050 ####[facility] [address] [place], [address] BUN/CRE 17.5 RATIO Normal 10-20 [facility] Comment on above: Performed By: #### L 3300.6400, L100.0100, L501.9985, L500.4050 ####[facility] [address] [place], [address] Calcium [Mass/Vol] 9.4 mg/dL Normal 7.6-11.0 [facility] Comment on above: Performed By: #### L 3300.6400, L100.0100, L501.9985, L500.4050 ####[facility] [address] [place], [address] Chloride [Moles/Vol] 97 mmol/L Low 98-108 [facility] Comment on above: Performed By: #### L 3300.6400, L100.0100, L501.9985, L500.4050 ####[facility] [address] [place], [address] CO2 [Moles/Vol] 23.6 mmol/L Normal 21.0-32.0 [facility] Comment on above: Performed By: #### L 3300.6400, L100.0100, L501.9985, L500.4050 ####[facility] [address] [place], [address] Creatinine [Mass/Vol] 0.78 mg/dL Normal 0.70-1.20 [facility] Comment on above: Performed By: #### L 3300.6400, L100.0100, L501.9985, L500.4050 ####[facility] [address] [place], [address] GAP 16 High 5-15 [facility] Comment on above: Performed By: #### L 3300.6400, L100.0100, L501.9985, L500.4050 ####[facility] [address] [place], [address] GFR/1.73 sq M.predicted among non-blacks MDRD (S/P/Bld) [Vol rate/Area] 97 mL/min/{1.73_m2} Normal >60 [facility] Comment on above: Result Comment: mL/m in/1.73m2 CKD-EPI Creatinine Equation (2020) Performed By: #### L 3300.6400, L100.0100, L501.9985, L500.4050 ####[facility] [address] [place], [address] Globulin (S) [Mass/Vol] 4.0 g/dL Normal 2.2-4.2 [facility] Comment on above: Performed By: #### L 3300.6400, L100.0100, L501.9985, L500.4050 ####[facility] [address] [place], [address] Glucose [Mass/Vol] 361 mg/dL High 70-99 [facility] Comment on above: Performed By: #### L 3300.6400, L100.0100, L501.9985, L500.4050 ####[facility] [address] [place], [address] Potassium [Moles/Vol] 4.3 mmol/L Normal 3.3-5.1 [facility] Comment on above: Performed By: #### L 3300.6400, L100.0100, L501.9985, L500.4050 ####[facility] [address] [place], [address] Sodium [Moles/Vol] 136 mmol/L Normal 133-145 [facility] Comment on above: Performed By: #### L 3300.6400, L100.0100, L501.9985, L500.4050 ####[facility] [address] [place], [address] T PROT 7.6 g/dL Normal 5.9-8.4 [facility] Comment on above: Performed By: #### L 3300.6400, L100.0100, L501.9985, L500.4050 ####[facility] [address] [place], [address] Urea nitrogen [Mass/Vol] 14 mg/dL Normal 4-19 [facility] Comment on above: Performed By: #### L 3300.6400, L100.0100, L501.9985, L500.4050 ####[facility] [address] [place], [address] Eosinophil percentageOrdered By: Ramon Garcia on 09-28-2024 Eosinophils/100 WBC (Bld) 2.8 % 0-5 [facility] Erythrocyte distribution wid th (RBC) [Ratio]Ordered By: Ramon Garcia on 09-28-2024 Erythrocyte distribution width (RBC) [Entitic vol] 40.0 fL 35.1-43.9 [facility] Erythrocyte distribution wid th ratioOrdered By: Ramon Garcia on 09-28-2024 Erythrocyte distribution width (RBC) [Ratio] 13.2 % 11.6-14.6 [facility] Erythrocyte distribution wid th standard deviationOrdered By: Ramon Garcia on 09-28-2024 Erythrocyte distribution width (RBC) [Ratio] 40.0 fl 35.1-43.9 [facility] GFR/1.73 sq M.predicted marco g non-blacks MDRD (S/P/Bld) [Vol rate/Area]Ordered By: Ramon Garcia on 09-28-2024 Estimated GFR (MDRD) Non-Af Amer 97 >60 [facility] Comment on above: mL/min/1.73m2 CKD-EP I Creatinine Equation (2020) Glomerular filtration rate ( GFR) estimation/1.73 sq m using serum, plasma, or whole bOrdered By: Ramon Garcia on 09-28-2024 GFR/1.73 sq M.predicted among non-blacks MDRD (S/P/Bld) [Vol rate/Area] 97 mL/min/{1.73_m2} >60 [facility] Comment on above: mL/min/1.73m2 CKD-EP I Creatinine Equation (2020) Hematocrit Auto (Bld) [Volum e fraction]Ordered By: Ramon Garcia on 09-28-2024 Hematocrit (Bld) [Volume fraction] 43.0 % 40-54 [facility] Hemoglobin A1con 09-28-2024 HbA1c (Bld) [Mass fraction] 11.1 % High <=5.6 [facility] Comment on above: Result Comment: Norm al < 5.7 % Prediabetic 5.7 - 6.4 % Diabetic >or= 6.5 % Please note range changes. Performed By: #### L 3300.6400, L100.0100, L501.9959, L500.4050 ####[facility] [address] [place], [address] Hemoglobin A1c percentageOrd ered By: Ramon Garcia on 09-28-2024 HbA1c (Bld) [Mass fraction] 11.1 % High <5.7 [facility] Comment on above: Normal < 5.7 % Predi abetic 5.7 - 6.4 % Diabetic >or= 6.5 % Please note range changes. Hemoglobin measurementOrdere d By: Ramon Garcia on 09-28-2024 Hemoglobin (Bld) [Mass/Vol] 14.2 g/dL 13.0-16.5 [facility] Immature granulocytes/100 WB C Auto (Bld)Ordered By: Ramon Garcia on 09-28-2024 Immature granulocytes/100 WBC (Bld) 0.400 % 0.0-0.9 [facility] Comment on above: IG% - Immature Granu locytes (promyelocytes, myelocytes and metamyelocytes) > 1% indicates that a LEFT SHIFT is Present. Laboratory - Chemistry and C hemistry - challengeOrdered By: Ramon Garcia on 09-28-2024 AST [Catalytic activity/Vol] 23 U/L <38 [facility] Lymphocytes Auto (Unsp spec) [#/Vol]Ordered By: Ramon Garcia on 09-28-2024 Lymphocytes (Bld) [#/Vol] 2.49 10*3/uL 0.83-4.5 1 [facility] Lymphocytes/100 WBC Auto (Un sp spec)Ordered By: Ramon Garcia on 09-28-2024 Lymphocytes/100 WBC (Bld) 24.7 % 19-41 [facility] MCV (mean corpuscular volume ) determinationOrdered By: Ramon Garcia on 09-28-2024 MCV (RBC) [Entitic vol] 83.2 fL 80-94 [facility] Mean corpuscular hemoglobin (MCH) determinationOrdered By: Ramon Garcia on 09-28-2024 MCH (RBC) [Entitic mass] 27.5 pg 27.0-32.0 [facility] Mean corpuscular hemoglobin concentration (MCHC) determinationOrdered By: Ramon Garcia on 09-28-2024 MCHC (RBC) [Mass/Vol] 33.0 g/dL 32-36 [facility] Mean platelet volume determi nationOrdered By: Ramon Garcia on 09-28-2024 Platelet mean volume (Bld) [Entitic vol] 10.3 fL 6.2-12.0 [facility] Monocyte percentageOrdered B y: Ramon Garcia on 09-28-2024 Monocytes/100 WBC (Bld) 6.0 % 0-10 [facility] Neutrophil percentageOrdered By: Ramon Garcia on 09-28-2024 Neutrophils/100 WBC (Bld) 65.6 % 47-70 [facility] No Panel InformationOrdered By: Ramon Garcia on 09-28-2024 23 U/L <38 [facility] Nucleated red blood cell per centageOrdered By: Ramon Garcia on 09-28-2024 Nucleated RBC/100 WBC (Bld) [Ratio] 0 % 0-5 [facility] Platelet countOrdered By: Juarez Garcia on 09-28-2024 Platelets (Bld) [#/Vol] 252 10*3/uL 150-450 [facility] Potassium (Unsp spec) [Mass/ Vol]Ordered By: Ramon Garcia on 09-28-2024 Potassium [Moles/Vol] 4.3 mmol/L 3.3-5.1 [facility] Potassium measurement (mass/ volume)Ordered By: Ramon Garcia on 09-28-2024 Potassium (Unsp spec) [Mass/Vol] 4.3 mmol/L 3.3-5.1 [facility] RBC Auto (Bld) [#/Vol]Ordere d By: Ramon Garcia on 09-28-2024 RBC (Bld) [#/Vol] 5.17 10*6/uL 4.6-6.2 [facility] Serum creatinine measurement (mass/volume)Ordered By: Ramon Garcia on 09-28-2024 Creatinine [Mass/Vol] 0.78 mg/dL 0.70-1.20 [facility] Serum globulin measurementOr dered By: Ramon Garcia on 09-28-2024 Globulin (S) [Mass/Vol] 4.0 g/dL 2.2-4.2 [facility] Serum glucose measurement (m ass/volume)Ordered By: Ramon Garcia on 09-28-2024 Glucose [Mass/Vol] 361 mg/dL High 70-99 [facility] Serum or plasma alanine herrmann otransferase (ALT) measurementOrdered By: Ramon Garcia on 09-28-2024 ALT [Catalytic activity/Vol] 15 U/L <47 [facility] Serum or plasma albumin everardo urement (mass/volume)Ordered By: Ramon Garcia on 09-28-2024 Albumin [Mass/Vol] 3.6 g/dL 3.4-4.8 [facility] Serum or plasma albumin/glob ulin mass ratioOrdered By: Ramon Garcia on 09-28-2024 Albumin/Globulin [Mass ratio] 0.9 {ratio} 0.9-2.4 [facility] Serum or plasma alkaline kaiser sphatase measurementOrdered By: Ramon Garcia on 09-28-2024 ALP [Catalytic activity/Vol] 133 U/L High 40-129 [facility] Serum or plasma calcium everardo urement (mass/volume)Ordered By: Ramon Garcia on 09-28-2024 Calcium [Mass/Vol] 9.4 mg/dL 7.6-11.0 [facility] Serum or plasma urea nitroge n measurement (mass/volume)Ordered By: Ramon Garcia on 09-28-2024 Urea nitrogen [Mass/Vol] 14 mg/dL 4-19 [facility] Serum prealbumin measurement by immunoassayOrdered By: Ramon Garcia on 09-28-2024 Prealbumin [Mass/Vol] 15 mg/dL 10- [facility] Comment on above: Performed at: [address] [id number] Director: Valente Grossman PhD, Phone: [phone] Serum prealbumin measurement by immunoassay 15 mg/dL - [facility] Sodium levelOrdered By: Curtis Garcia on 09-28-2024 Sodium [Moles/Vol] 136 mmol/L 133-145 [facility] Total proteinOrdered By: Jemal Garcia on 09-28-2024 Protein [Mass/Vol] 7.6 g/dL 5.9-8.4 [facility] White blood cell (WBC) count Ordered By: Ramon Garcia on 09-28-2024 WBC (Bld) [#/Vol] 10.1 10*3/uL 4.4-11.0 [facility] Wound Ctr History AND Physic arely 09-25-2024 Wound Ctr History & Physical Normal [facility] Wound Cultureon 08-27-2024 WC Normal [facility] Comment on above: Performed By: #### M 100.2000, M100.3000 ####[facility] [address] [place], [address] Gram Stainon 08-24-2024 GS Gram Stain 1+ Gram positive cocci Rare Gram negative rods No White Blood Cells No Epithelial cells Normal [facility] Comment on above: Performed By: #### M 100.2000, M100.3000 ####[facility] [address] [place], [address] Gram stainOrdered By: Ramon Garcia on 08-22-2024 Microscopic observation Gram stain Nom (Unsp spec) [facility] Routine wound cultureOrdered By: Ramon Garcia on 08-22-2024 Wound Culture Proteus mirabilis Abnormal [facility] Wound Culture Negative Abnormal [facility] PSA,Total - Annual Screenon 08-02-2024 PSA,TOT SCREEN 3.29 ng/mL Normal 0.00-4.00 [facility] Comment on above: Result Comment: This test was performed using the TPSA assay method for the[employer] chemistry system. Values obtained with differentassay methods cannot be used interchangably.When changing PSA assays in the course of monitoring apatient, additional sequential testing should be carriedout to confirm baseline values. Performed By: #### L 501.9910 ####[facility] [address] [place], [address] Screening prostate specific antigen (PSA) measurementOrdered By: Bernabe Reese on 08-02-2024 Prostate Specific Antigen Screen 3.29 ng/mL 0.00-4.00 [facility] Comment on above: This test was perfor med using the TPSA assay method for the[employer] chemistry system. Values obtained with differentassay methods cannot be used interchangably.When changing PSA assays in the course of monitoring apatient, additional sequential testing should be carriedout to confirm baseline values. Absolute neutrophil countOrd ered By: Bernabe Reese on 06-19-2024 Neutrophils (Bld) [#/Vol] 5.2 10*3/uL 2.0-7.7 [facility] Albumin to globulin ratioOrd ered By: Bernabe Reese on 06-19-2024 Albumin/Globulin [Mass ratio] 0.8 {ratio} Low 0.9-2.4 [facility] Basophil percentageOrdered B y: Bernabe Reese on 06-19-2024 Basophils/100 WBC (Bld) 0.6 % 0-1 [facility] Bilirubin, totalOrdered By: Bernabe Reese on 06-19-2024 Bilirubin [Mass/Vol] 0.40 mg/dL 0.20-1.00 [facility] Comment on above: For patients on eltr ombopag therapy, use of Dimension [place] TBIL is not recommended. Blood urea nitrogen (BUN)/cr eatinine ratioOrdered By: Bernabe Reese on 06-19-2024 Urea nitrogen/Creatinine [Mass ratio] 16.8 mg/mg 10-20 [facility] CBC W/Diff, Automatedon 05-22 Absolute Lymph 2.24 X10 3/uL Normal 0.83-4.51 [facility] Comment on above: Order Comment: Order Date: 06/19/24Order Info: [id number] - CBCD Performed By: #### L 100.0100, L501.5200, L500.4050, L502.0250, L501.9985, L500.4100 ####[facility] [address] [place], [place], [id number] Absolute Neut 5.2 X10 3/uL Normal 2.0-7.7 [facility] Comment on above: Order Comment: Order Date: 06/19/24Order Info: 018- - CBCD Performed By: #### L 100.0100, L501.5200, L500.4050, L502.0250, L501.9985, L500.4100 ####[facility] [address] [place], [address] Basophils/100 WBC (Bld) 0.6 % Normal 0-1 [facility] Comment on above: Order Comment: Order Date: 06/19/24Order Info: 183- - CBCD Performed By: #### L 100.0100, L501.5200, L500.4050, L502.0250, L501.9985, L500.4100 ####[facility] [address] [place], [address] Eosinophils/100 WBC (Bld) 2.8 % Normal 0-5 [facility] Comment on above: Order Comment: Order Date: 06/19/24Order Info: 183- - CBCD Performed By: #### L 100.0100, L501.5200, L500.4050, L502.0250, L501.9985, L500.4100 ####[facility] [address] [place], [address] Erythrocyte distribution width (RBC) [Ratio] 13.5 % Normal 11.6-14.6 [facility] Comment on above: Order Comment: Order Date: 06/19/24Order Info: 018- - CBCD Performed By: #### L 100.0100, L501.5200, L500.4050, L502.0250, L501.9985, L500.4100 ####[facility] [address] [place], [address] Hematocrit (Bld) [Volume fraction] 44.1 % Normal 40-54 [facility] Comment on above: Order Comment: Order Date: 06/19/24Order Info: 183- - CBCD Performed By: #### L 100.0100, L501.5200, L500.4050, L502.0250, L501.9985, L500.4100 ####[facility] [address] [place], [address] Hemoglobin (Bld) [Mass/Vol] 14.6 g/dL Normal 13.0-16.5 [facility] Comment on above: Order Comment: Order Date: 06/19/24Order Info: 183-06 - CBCD Performed By: #### L 100.0100, L501.5200, L500.4050, L502.0250, L501.9985, L500.4100 ####[facility] [address] [place], [address] IG% 0.500 Normal 0.0-0.9 [facility] Comment on above: Order Comment: Order Date: 06/19/24Order Info: 183-06 - CBCD Result Comment: IG% - Immature Granulocytes (promyelocytes, myelocytes andmetamyelocytes) > 1% indicates that a LEFT SHIFT is Present. Performed By: #### L 100.0100, L501.5200, L500.4050, L502.0250, L501.9985, L500.4100 ####[facility] [address] [place], [address] Lymphocytes/100 WBC (Bld) 27.3 % Normal 19-41 [facility] Comment on above: Order Comment: Order Date: 06/19/24Order Info: [id number] - CBCD Performed By: #### L 100.0100, L501.5200, L500.4050, L502.0250, L501.9985, L500.4100 ####[facility] [address] [place], [address] MCH (RBC) [Entitic mass] 27.7 pg Normal 27.0-32.0 [facility] Comment on above: Order Comment: Order Date: 06/19/24Order Info: [id number] - CBCD Performed By: #### L 100.0100, L501.5200, L500.4050, L502.0250, L501.9985, L500.4100 ####[facility] [address] [place], [address] MCHC (RBC) [Mass/Vol] 33.1 g/dL Normal 32-36 [facility] Comment on above: Order Comment: Order Date: 06/19/24Order Info: 183- - CBCD Performed By: #### L 100.0100, L501.5200, L500.4050, L502.0250, L501.9985, L500.4100 ####[facility] [address] [place], [address] MCV (RBC) [Entitic vol] 83.7 fL Normal 80-94 [facility] Comment on above: Order Comment: Order Date: 06/19/24Order Info: 183- - CBCD Performed By: #### L 100.0100, L501.5200, L500.4050, L502.0250, L501.9985, L500.4100 ####[facility] [address] [place], [address] Monocytes/100 WBC (Bld) 5.7 % Normal 0-10 [facility] Comment on above: Order Comment: Order Date: 06/19/24Order Info: 183- - CBCD Performed By: #### L 100.0100, L501.5200, L500.4050, L502.0250, L501.9985, L500.4100 ####[facility] [address] [place], [address] Neutrophils/100 WBC (Bld) 63.1 % Normal 47-70 [facility] Comment on above: Order Comment: Order Date: 06/19/24Order Info: 183- - CBCD Performed By: #### L 100.0100, L501.5200, L500.4050, L502.0250, L501.9985, L500.4100 ####[facility] [address] [place], [address] Nucleated RBC (Bld) [#/Vol] 0 10*3/uL Normal 0-5 [facility] Comment on above: Order Comment: Order Date: 06/19/24Order Info: 018-1 - CBCD Performed By: #### L 100.0100, L501.5200, L500.4050, L502.0250, L501.9985, L500.4100 ####[facility] [address] [place], [address] Platelet mean volume (Bld) [Entitic vol] 10.6 fL Normal 6.2-12.0 [facility] Comment on above: Order Comment: Order Date: 06/19/24Order Info: 018- - CBCD Performed By: #### L 100.0100, L501.5200, L500.4050, L502.0250, L501.9985, L500.4100 ####[facility] [address] [facility] [place], [address] Platelets (Bld) [#/Vol] 206 10*3/uL Normal 150-450 [facility] Comment on above: Order Comment: Order Date: 06/19/24Order Info: 018- - CBCD Performed By: #### L 100.0100, L501.5200, L500.4050, L502.0250, L501.9985, L500.4100 ####[facility] [address] [facility] [place], [address] RBC (Bld) [#/Vol] 5.27 10*6/uL Normal 4.6-6.2 [facility] Comment on above: Order Comment: Order Date: 06/19/24Order Info: 018-1 - CBCD Performed By: #### L 100.0100, L501.5200, L500.4050, L502.0250, L501.9985, L500.4100 ####[facility] [address] [place], [address] RDW SD 41.1 fl Normal 35.1-43.9 [facility] Comment on above: Order Comment: Order Date: 06/19/24Order Info: [id number] - CBCD Performed By: #### L 100.0100, L501.5200, L500.4050, L502.0250, L501.9985, L500.4100 ####[facility] [address] [place], [address] WBC (Bld) [#/Vol] 8.2 10*3/uL Normal 4.4-11.0 [facility] Comment on above: Order Comment: Order Date: 06/19/24Order Info: 018- - CBCD Performed By: #### L 100.0100, L501.5200, L500.4050, L502.0250, L501.9985, L500.4100 ####[facility] [address] [place], [place], [id number] Carbon dioxide measurementOr dered By: Bernabe Reese on 06-19-2024 CO2 [Moles/Vol] 27.0 mmol/L 21.0-32.0 [facility] Chloride measurementOrdered By: Bernabe Reese on 06-19-2024 Chloride [Moles/Vol] 101 mmol/L 98-107 [facility] Comprehensive Metabolic Prof ilon 06-19-2024 Albumin [Mass/Vol] 3.2 g/dL Normal 3.2-5.0 [facility] Comment on above: Order Comment: Order Date: 06/19/24Order Info: [id number] - CMPOrder Info: [id number] - LIPIDOrder Info: [id number] - MG Performed By: #### L 100.0100, L501.5200, L500.4050, L502.0250, L501.9985, L500.4100 ####[facility] [address] [place], [place], [address] Albumin/Globulin [Mass ratio] 0.8 {ratio} Low 0.9-2.4 [facility] Comment on above: Order Comment: Order Date: 06/19/24Order Info: 785- - CMPOrder Info: [id number] - LIPIDOrder Info: - MG Performed By: #### L 100.0100, L501.5200, L500.4050, L502.0250, L501.9985, L500.4100 ####[facility] [address] [place], [address] ALK P 136 U/L High 45-117 [facility] Comment on above: Order Comment: Order Date: 06/19/24Order Info: 785- - CMPOrder Info: [id number] - LIPIDOrder Info: - MG Performed By: #### L 100.0100, L501.5200, L500.4050, L502.0250, L501.9985, L500.4100 ####[facility] [address] [place], [address] ALT [Catalytic activity/Vol] 29 U/L Normal 16-61 [facility] Comment on above: Order Comment: Order Date: 06/19/24Order Info: [id number] - CMPOrder Info: [id number] - LIPIDOrder Info: - MG Performed By: #### L 100.0100, L501.5200, L500.4050, L502.0250, L501.9985, L500.4100 ####[facility] [address] [place], [address] AST [Catalytic activity/Vol] 32 U/L Normal 15-37 [facility] Comment on above: Order Comment: Order Date: 06/19/24Order Info: 07- - CMPOrder Info: [id number] - LIPIDOrder Info: - MG Performed By: #### L 100.0100, L501.5200, L500.4050, L502.0250, L501.9985, L500.4100 ####[facility] [address] [place], [address] Bilirubin [Mass/Vol] 0.40 mg/dL Normal 0.20-1.00 [facility] Comment on above: Order Comment: Order Date: 06/19/24Order Info: [id number] - CMPOrder Info: [id number] - LIPIDOrder Info: [id number] - MG Result Comment: For patients on eltrombopag therapy, use of Dimension [place] TBIL is not recommended. Performed By: #### L 100.0100, L501.5200, L500.4050, L502.0250, L501.9985, L500.4100 ####[facility] [address] [place], [address] BUN/CRE 16.8 RATIO Normal 10-20 [facility] Comment on above: Order Comment: Order Date: 06/19/24Order Info: 785- - CMPOrder Info: [id number] - LIPIDOrder Info: [id number] - MG Performed By: #### L 100.0100, L501.5200, L500.4050, L502.0250, L501.9985, L500.4100 ####[facility] [address] [place], [address] CA,Total 9.3 mg/dL Normal 8.5-10.1 [facility] Comment on above: Order Comment: Order Date: 06/19/24Order Info: 07-1 - CMPOrder Info: [id number] - LIPIDOrder Info: [id number] - MG Performed By: #### L 100.0100, L501.5200, L500.4050, L502.0250, L501.9985, L500.4100 ####[facility] [address] [place], [address] Chloride [Moles/Vol] 101 mmol/L Normal 98-107 [facility] Comment on above: Order Comment: Order Date: 06/19/24Order Info: 785-1 - CMPOrder Info: [id number] - LIPIDOrder Info: [id number] - MG Performed By: #### L 100.0100, L501.5200, L500.4050, L502.0250, L501.9985, L500.4100 ####[facility] [address] [place], [address] CO2 [Moles/Vol] 27.0 mmol/L Normal 21.0-32.0 [facility] Comment on above: Order Comment: Order Date: 06/19/24Order Info: 785-1 - CMPOrder Info: [id number] - LIPIDOrder Info: [id number] - MG Performed By: #### L 100.0100, L501.5200, L500.4050, L502.0250, L501.9985, L500.4100 ####[facility] [address] [place], [address] Creatinine [Mass/Vol] 0.90 mg/dL Normal 0.70-1.30 [facility] Comment on above: Order Comment: Order Date: 06/19/24Order Info: [id number] - CMPOrder Info: [id number] - LIPIDOrder Info: [id number] - MG Result Comment: The validity of the calculated GFR GFRAA in patients over70 years has not been determined. Clinical correlation isessential. Performed By: #### L 100.0100, L501.5200, L500.4050, L502.0250, L501.9985, L500.4100 ####[facility] [address] [place], [address] EST GFR - AA 108 mL/min Normal >60 [facility] Comment on above: Order Comment: Order Date: 06/19/24Order Info: 785-1 - CMPOrder Info: [id number] - LIPIDOrder Info: [id number] - MG Result Comment: Afri can Togolese GFR Calc Performed By: #### L 100.0100, L501.5200, L500.4050, L502.0250, L501.9985, L500.4100 ####[facility] [address] [place], [address] GAP 8 Normal 5-15 [facility] Comment on above: Order Comment: Order Date: 06/19/24Order Info: [id number] - CMPOrder Info: [id number] - LIPIDOrder Info: [id number] - MG Performed By: #### L 100.0100, L501.5200, L500.4050, L502.0250, L501.9985, L500.4100 ####[facility] [address] [place], [place], [address] GFR/1.73 sq M.predicted among non-blacks MDRD (S/P/Bld) [Vol rate/Area] 89 mL/min/{1.73_m2} Normal >60 [facility] Comment on above: Order Comment: Order Date: 06/19/24Order Info: 785- - CMPOrder Info: [id number] - LIPIDOrder Info: [id number] - MG Result Comment: Non- GFR Calc Performed By: #### L 100.0100, L501.5200, L500.4050, L502.0250, L501.9985, L500.4100 ####[facility] [address] [place], [address] Globulin (S) [Mass/Vol] 4.2 g/dL Normal 2.2-4.2 [facility] Comment on above: Order Comment: Order Date: 06/19/24Order Info: 07-1 - CMPOrder Info: [id number] - LIPIDOrder Info: [id number] - MG Performed By: #### L 100.0100, L501.5200, L500.4050, L502.0250, L501.9985, L500.4100 ####[facility] [address] [place], [address] Glucose [Mass/Vol] 367 mg/dL High 74-106 [facility] Comment on above: Order Comment: Order Date: 06/19/24Order Info: [id number] - CMPOrder Info: [id number] - LIPIDOrder Info: [id number] - MG Result Comment: Gluc ose result greater than or equal to 200 mg/dLsuggests DIABETES MELLITUS per A.D.A. criteria. Performed By: #### L 100.0100, L501.5200, L500.4050, L502.0250, L501.9985, L500.4100 ####[facility] [address] [place], [address] Potassium [Moles/Vol] 4.0 mmol/L Normal 3.5-5.1 [facility] Comment on above: Order Comment: Order Date: 06/19/24Order Info: [id number] - CMPOrder Info: [id number] - LIPIDOrder Info: [id number] - MG Performed By: #### L 100.0100, L501.5200, L500.4050, L502.0250, L501.9985, L500.4100 ####[facility] [address] [place], [address] Sodium [Moles/Vol] 135 mmol/L Low 136-145 [facility] Comment on above: Order Comment: Order Date: 06/19/24Order Info: [id number] - CMPOrder Info: [id number] - LIPIDOrder Info: [id number] - MG Performed By: #### L 100.0100, L501.5200, L500.4050, L502.0250, L501.9985, L500.4100 ####[facility] [address] [place], [address] T PROT 7.4 g/dL Normal 6.4-8.2 [facility] Comment on above: Order Comment: Order Date: 06/19/24Order Info: [id number] - CMPOrder Info: [id number] - LIPIDOrder Info: [id number] - MG Performed By: #### L 100.0100, L501.5200, L500.4050, L502.0250, L501.9985, L500.4100 ####[facility] [address] [place], [place], [address] Urea nitrogen [Mass/Vol] 15 mg/dL Normal 7-18 [facility] Comment on above: Order Comment: Order Date: 06/19/24Order Info: [id number] - CMPOrder Info: [id number] - LIPIDOrder Info: [id number] - MG Performed By: #### L 100.0100, L501.5200, L500.4050, L502.0250, L501.9985, L500.4100 ####[facility] [address] [place], [place], [id number] Eosinophil percentageOrdered By: Bernabe Reese on 06-19-2024 Eosinophils/100 WBC (Bld) 2.8 % 0-5 [facility] Erythrocyte distribution wid th ratioOrdered By: Bernabe Reese on 06-19-2024 Erythrocyte distribution width (RBC) [Ratio] 13.5 % 11.6-14.6 [facility] Erythrocyte distribution wid th standard deviationOrdered By: Bernabe Reese on 06-19-2024 Erythrocyte distribution width (RBC) [Entitic vol] 41.1 fL 35.1-43.9 [facility] Estimated glomerular filtrat ion rate (GFR) AmericanOrdered By: Bernabe Reese on 06-19-2024 Estimated GFR (MDRD) Amer 108 mL/min >60 [facility] Comment on above: GFR Calc Glomerular filtration rate ( GFR) estimationOrdered By: Bernabe Reese on 06-19-2024 Estimated GFR (MDRD) Non-Af Amer 89 mL/min >60 [facility] Comment on above: Non- GFR Calc Glucose measurementOrdered B y: Bernabe Reese on 06-19-2024 Glucose [Mass/Vol] 367 mg/dL High 74-106 [facility] Comment on above: Glucose result great er than or equal to 200 mg/dLsuggests DIABETES MELLITUS per A.D.A. criteria. Hematocrit Auto (Bld) [Volum e fraction]Ordered By: Bernabe Reese on 06-19-2024 Hematocrit (Bld) [Volume fraction] 44.1 % 40-54 [facility] Hemoglobin A1con 06-19-2024 HbA1c (Bld) [Mass fraction] 10.4 % High 3.8-5.6 [facility] Comment on above: Order Comment: Order Date: 06/19/24Order Info: [id number] - A1C Result Comment: Norm al < 5.7 % Prediabetic 5.7 - 6.4 % Diabetic >or= 6.5 % Please note range changes. Performed By: #### L 100.0100, L501.5200, L500.4050, L502.0250, L501.9985, L500.4100 ####[facility] [address] [place], [address] Hemoglobin A1c percentageOrd ered By: Bernabe Reese on 06-19-2024 HbA1c (Bld) [Mass fraction] 10.4 % High 3.8-5.6 [facility] Comment on above: Normal < 5.7 % Predi abetic 5.7 - 6.4 % Diabetic >or= 6.5 % Please note range changes. Hemoglobin measurementOrdere d By: Bernabe Reese on 06-19-2024 Hemoglobin (Bld) [Mass/Vol] 14.6 g/dL 13.0-16.5 [facility] High density lipoprotein (HD L) measurementOrdered By: Bernabe Reese on 06-19-2024 Cholesterol in HDL [Mass/Vol] 36 mg/dL Low >40 [facility] Comment on above: The drugs N-Acetylcy steine and Metamizole may falsely depress this assay. Reference Range HDL <40 mg/dL Low HDL Cholesterol HDL >or= 60 mg/dL High HDL Cholesterol Immature granulocytes/100 WB C Auto (Bld)Ordered By: Bernabe Reese on 06-19-2024 Immature granulocytes/100 WBC (Bld) 0.500 % 0.0-0.9 [facility] Comment on above: IG% - Immature Granu locytes (promyelocytes, myelocytes and metamyelocytes) > 1% indicates that a LEFT SHIFT is Present. Laboratory - Chemistry and C hemistry - challengeOrdered By: Bernabe Reese on 06-19-2024 AST [Catalytic activity/Vol] 32 U/L 15-37 [facility] Lipid Profileon 06-19-2024 Cholesterol [Mass/Vol] 179 mg/dL Normal 200 [facility] Comment on above: Order Comment: Order Date: 06/19/24Order Info: 07- - CMPOrder Info: [id number] - LIPIDOrder Info: [id number] - MG Result Comment: <200 mg/dL Desirable 200-240 mg/dL Borderline >240 mg/dL High Risk Performed By: #### L 100.0100, L501.5200, L500.4050, L502.0250, L501.9985, L500.4100 ####[facility] [address] [place], [address] Cholesterol in HDL [Mass/Vol] 36 mg/dL Low [facility] Comment on above: Order Comment: Order Date: 06/19/24Order Info: [id number] - CMPOrder Info: - LIPIDOrder Info: [id number] - MG Result Comment: The drugs N-Acetylcysteine and Metamizole may falselydepress this assay. Reference Range HDL <40 mg/dL Low HDL Cholesterol HDL >or= 60 mg/dL High HDL Cholesterol Performed By: #### L 100.0100, L501.5200, L500.4050, L502.0250, L501.9985, L500.4100 ####[facility] [address] [place], [address] Cholesterol in LDL [Mass/Vol] 66 mg/dL Normal 0-130 [facility] Comment on above: Order Comment: Order Date: 06/19/24Order Info: [id number] - CMPOrder Info: [id number] - LIPIDOrder Info: [id number] - MG Performed By: #### L 100.0100, L501.5200, L500.4050, L502.0250, L501.9985, L500.4100 ####[facility] [address] [place], [address] Cholesterol in VLDL [Mass/Vol] 77 mg/dL High 5-40 [facility] Comment on above: Order Comment: Order Date: 06/19/24Order Info: [id number] - CMPOrder Info: [id number] - LIPIDOrder Info: [id number] - MG Performed By: #### L 100.0100, L501.5200, L500.4050, L502.0250, L501.9985, L500.4100 ####[facility] [address] [place], [address] Triglyceride [Mass/Vol] 387 mg/dL High [facility] Comment on above: Order Comment: Order Date: 06/19/24Order Info: [id number] - CMPOrder Info: [id number] - LIPIDOrder Info: [id number] - MG Result Comment: The drugs N-Acetylcysteine and Metamizole may falselydepress this assay.Serum Triglycerides Reference Interval Normal <150 mg/dL Borderline high 150 - 199 mg/dL High 200 - 499 mg/dL Very High > or = 500 mg/dL Performed By: #### L 100.0100, L501.5200, L500.4050, L502.0250, L501.9985, L500.4100 ####[facility] [address] [place], [address] Low density lipoprotein (LDL ) cholesterol measurementOrdered By: Bernabe Reese on 06-19-2024 Cholesterol in LDL [Mass/Vol] 66 mg/dL 0-130 [facility] Lymphocytes Auto (Unsp spec) [#/Vol]Ordered By: Bernabe Reese on 06-19-2024 Lymphocytes (Bld) [#/Vol] 2.24 10*3/uL 0.83-4.5 1 [facility] Lymphocytes/100 WBC Auto (Un sp spec)Ordered By: Bernabe Reese on 06-19-2024 Lymphocytes/100 WBC (Bld) 27.3 % 19-41 [facility] MCV (mean corpuscular volume ) determinationOrdered By: Bernabe Reese on 06-19-2024 MCV (RBC) [Entitic vol] 83.7 fL 80-94 [facility] Magnesiumon 06-19-2024 Magnesium [Mass/Vol] 1.7 mg/dL Normal 1.6-2.6 [facility] Comment on above: Order Comment: Order Date: 06/19/24Order Info: [id number] - CMPOrder Info: [id number] - LIPIDOrder Info: [id number] - MG Performed By: #### L 100.0100, L501.5200, L500.4050, L502.0250, L501.9985, L500.4100 ####[facility] [address] [place], [address] Magnesium measurementOrdered By: Bernabe Reese on 06-19-2024 Magnesium [Mass/Vol] 1.7 mg/dL 1.6-2.6 [facility] Mean corpuscular hemoglobin (MCH) determinationOrdered By: Bernabe Reese on 06-19-2024 MCH (RBC) [Entitic mass] 27.7 pg 27.0-32.0 [facility] Mean corpuscular hemoglobin concentration (MCHC) determinationOrdered By: Bernabe Reese on 06-19-2024 MCHC (RBC) [Mass/Vol] 33.1 g/dL 32-36 [facility] Mean platelet volume determi nationOrdered By: Bernabe Reese on 06-19-2024 Platelet mean volume (Bld) [Entitic vol] 10.6 fL 6.2-12.0 [facility] Microalb:Creat Ratio,Random URon 06-19-2024 Creatinine [Mass/Vol] 53.80 mg/dL Normal NO RAN GE EST. [facility] Comment on above: Order Comment: Order Date: 06/19/24Order Info: [id number] - MIACRE Performed By: #### L 100.0100, L501.5200, L500.4050, L502.0250, L501.9985, L500.4100 ####[facility] [address] [place], [address] MALB:CRE 747.2 mg/g CRE High <30 mg/g CRE [facility] Comment on above: Order Comment: Order Date: 06/19/24Order Info: [id number] - MIACRE Performed By: #### L 100.0100, L501.5200, L500.4050, L502.0250, L501.9985, L500.4100 ####[facility] [address] [place], [place], [address] MICROALBUMIN,UR 402.0 mg/L Normal NO RANGE EST. [facility] Comment on above: Order Comment: Order Date: 06/19/24Order Info: [id number] - MIACRE Performed By: #### L 100.0100, L501.5200, L500.4050, L502.0250, L501.9985, L500.4100 ####[facility] [address] [place], [place], [id number] Monocyte percentageOrdered B y: Bernabe Reese on 06-19-2024 Monocytes/100 WBC (Bld) 5.7 % 0-10 [facility] Neutrophil percentageOrdered By: Bernabe Reese on 06-19-2024 Neutrophils/100 WBC (Bld) 63.1 % 47-70 [facility] Nucleated red blood cell per centageOrdered By: Bernabe Reese on 06-19-2024 Nucleated RBC/100 WBC (Bld) [Ratio] 0 % 0-5 [facility] Platelet countOrdered By: Alona Reese on 06-19-2024 Platelets (Bld) [#/Vol] 206 10*3/uL 150-450 [facility] Potassium measurementOrdered By: Bernabe Reese on 06-19-2024 Potassium [Moles/Vol] 4.0 mmol/L 3.5-5.1 [facility] RBC Auto (Bld) [#/Vol]Ordere d By: Bernabe Reese on 06-19-2024 RBC (Bld) [#/Vol] 5.27 10*6/uL 4.6-6.2 [facility] Random urine microalbumin me asurementOrdered By: Bernabe Reese on 06-19-2024 Urine Random Microalbumin 402.0 mg/L NO RANGE EST. [facility] Serum anion gap measurementO rdered By: Bernabe Reese on 06-19-2024 Anion gap [Moles/Vol] 8 mmol/L 5-15 [facility] Serum globulin measurementOr dered By: Bernabe Reese on 06-19-2024 Globulin (S) [Mass/Vol] 4.2 g/dL 2.2-4.2 [facility] Serum or plasma alanine herrmann otransferase (ALT) measurementOrdered By: Bernabe Reese on 06-19-2024 ALT [Catalytic activity/Vol] 29 U/L 16-61 [facility] Serum or plasma albumin everardo urement (mass/volume)Ordered By: Bernabe Reese on 06-19-2024 Albumin [Mass/Vol] 3.2 g/dL 3.2-5.0 [facility] Serum or plasma alkaline kaiser sphatase measurementOrdered By: Bernabe Reese on 06-19-2024 ALP [Catalytic activity/Vol] 136 U/L High 45-117 [facility] Serum or plasma calcium everardo urement (mass/volume)Ordered By: Bernabe Reese on 06-19-2024 Calcium [Mass/Vol] 9.3 mg/dL 8.5-10.1 [facility] Serum or plasma cholesterol measurement (mass/volume)Ordered By: Bernabe Reese on 06-19-2024 Cholesterol [Mass/Vol] 179 mg/dL <200 [facility] Comment on above: <200 mg/dL Desirable 200-240 mg/dL Borderline >240 mg/dL High Risk Serum or plasma creatinine m easurement (mass/volume)Ordered By: Bernabe Reese on 06-19-2024 Creatinine [Mass/Vol] 0.90 mg/dL 0.70-1.30 [facility] Comment on above: The validity of the calculated GFR & GFRAA in patients over 70 years has not been determined. Clinical correlation is essential. Serum or plasma urea nitroge n measurement (mass/volume)Ordered By: Bernabe Reese on 06-19-2024 Urea nitrogen [Mass/Vol] 15 mg/dL 7-18 [facility] Sodium levelOrdered By: Bernabe Reese on 06-19-2024 Sodium [Moles/Vol] 135 mmol/L Low 136-145 [facility] Total proteinOrdered By: Ruiz Reese on 06-19-2024 Protein [Mass/Vol] 7.4 g/dL 6.4-8.2 [facility] Triglycerides measurementOrd ered By: Bernabe Reese on 06-19-2024 Triglyceride [Mass/Vol] 387 mg/dL High <199 [facility] Comment on above: The drugs N-Acetylcy steine and Metamizole may falsely depress this assay.Serum Triglycerides Reference Interval Normal <150 mg/dL Borderline high 150 - 199 mg/dL High 200 - 499 mg/dL Very High > or = 500 mg/dL Urine albumin/creatinine rat io for detection of microalbuminuriaOrdered By: Bernabe Reese on 06-19-2024 Urine Microalbumin/Creatinine Ratio 747.2 mg/g CRE High <30 [facility] Urine creatinine measurement (mass/volume)Ordered By: Bernabe Reese on 06-19-2024 Creatinine (U) [Mass/Vol] 53.80 mg/dL NO RANGE EST. [facility] Very low density lipoprotein (VLDL) cholesterol measurementOrdered By: Bernabe Reese on 06-19-2024 VLDL Cholesterol 77 mg/dL High 5-40 [facility] White blood cell (WBC) count Ordered By: Bernabe Reese on 06-19-2024 WBC (Bld) [#/Vol] 8.2 10*3/uL 4.4-11.0 [facility] Thyroidon 02-13-2024 Thyroid Normal [facility] CBC W/Diff, Automatedon 12-18 Absolute Lymph 2.46 X10 3/uL Normal 0.83-4.51 [facility] Comment on above: Order Comment: Order Date: 12/28/23Order Info: [id number] - CBCD Performed By: #### L 501.9985, L500.4050, L502.0250, L100.0100, L501.5200, L500.4100 ####[facility] [address] [place], [address] Absolute Neut 4.2 X10 3/uL Normal 2.0-7.7 [facility] Comment on above: Order Comment: Order Date: 12/28/23Order Info: [id number] - CBCD Performed By: #### L 501.9985, L500.4050, L502.0250, L100.0100, L501.5200, L500.4100 ####[facility] [address] [place], [address] Basophils/100 WBC (Bld) 0.7 % Normal 0-1 [facility] Comment on above: Order Comment: Order Date: 12/28/23Order Info: [id number]- - CBCD Performed By: #### L 501.9985, L500.4050, L502.0250, L100.0100, L501.5200, L500.4100 ####[facility] [address] [place], [address] Eosinophils/100 WBC (Bld) 2.1 % Normal 0-5 [facility] Comment on above: Order Comment: Order Date: 12/28/23Order Info: [id number]- - CBCD Performed By: #### L 501.9985, L500.4050, L502.0250, L100.0100, L501.5200, L500.4100 ####[facility] [address] [place], [address] Erythrocyte distribution width (RBC) [Ratio] 14.5 % Normal 11.6-14.6 [facility] Comment on above: Order Comment: Order Date: 12/28/23Order Info: [id number] - CBCD Performed By: #### L 501.9985, L500.4050, L502.0250, L100.0100, L501.5200, L500.4100 ####[facility] [address] [place], [address] Hematocrit (Bld) [Volume fraction] 43.5 % Normal 40-54 [facility] Comment on above: Order Comment: Order Date: 12/28/23Order Info: [id number] - CBCD Performed By: #### L 501.9985, L500.4050, L502.0250, L100.0100, L501.5200, L500.4100 ####[facility] [address] [place], [address] Hemoglobin (Bld) [Mass/Vol] 14.4 g/dL Normal 13.0-16.5 [facility] Comment on above: Order Comment: Order Date: 12/28/23Order Info: [id number] - CBCD Performed By: #### L 501.9985, L500.4050, L502.0250, L100.0100, L501.5200, L500.4100 ####[facility] [address] [place], [address] IG% 0.300 Normal 0.0-0.9 [facility] Comment on above: Order Comment: Order Date: 12/28/23Order Info: 018- - CBCD Result Comment: IG% - Immature Granulocytes (promyelocytes, myelocytes andmetamyelocytes) > 1% indicates that a LEFT SHIFT is Present. Performed By: #### L 501.9985, L500.4050, L502.0250, L100.0100, L501.5200, L500.4100 ####[facility] [address] [place], [address] Lymphocytes/100 WBC (Bld) 33.0 % Normal 19-41 [facility] Comment on above: Order Comment: Order Date: 12/28/23Order Info: [id number] - CBCD Performed By: #### L 501.9985, L500.4050, L502.0250, L100.0100, L501.5200, L500.4100 ####[facility] [address] [place], [address] MCH (RBC) [Entitic mass] 27.3 pg Normal 27.0-32.0 [facility] Comment on above: Order Comment: Order Date: 12/28/23Order Info: [id number] - CBCD Performed By: #### L 501.9985, L500.4050, L502.0250, L100.0100, L501.5200, L500.4100 ####[facility] [address] [place], [address] MCHC (RBC) [Mass/Vol] 33.1 g/dL Normal 32-36 [facility] Comment on above: Order Comment: Order Date: 12/28/23Order Info: [id number] - CBCD Performed By: #### L 501.9985, L500.4050, L502.0250, L100.0100, L501.5200, L500.4100 ####[facility] [address] [place], [address] MCV (RBC) [Entitic vol] 82.5 fL Normal 80-94 [facility] Comment on above: Order Comment: Order Date: 12/28/23Order Info: [id number] - CBCD Performed By: #### L 501.9985, L500.4050, L502.0250, L100.0100, L501.5200, L500.4100 ####[facility] [address] [place], [address] Monocytes/100 WBC (Bld) 7.1 % Normal 0-10 [facility] Comment on above: Order Comment: Order Date: 12/28/23Order Info: [id number] - CBCD Performed By: #### L 501.9985, L500.4050, L502.0250, L100.0100, L501.5200, L500.4100 ####[facility] [address] [place], [address] Neutrophils/100 WBC (Bld) 56.8 % Normal 47-70 [facility] Comment on above: Order Comment: Order Date: 12/28/23Order Info: [id number] - CBCD Performed By: #### L 501.9985, L500.4050, L502.0250, L100.0100, L501.5200, L500.4100 ####[facility] [address] [place], [address] Nucleated RBC (Bld) [#/Vol] 0 10*3/uL Normal 0-5 [facility] Comment on above: Order Comment: Order Date: 12/28/23Order Info: [id number] - CBCD Performed By: #### L 501.9985, L500.4050, L502.0250, L100.0100, L501.5200, L500.4100 ####[facility] [address] [place], [address] Platelet mean volume (Bld) [Entitic vol] 10.4 fL Normal 6.2-12.0 [facility] Comment on above: Order Comment: Order Date: 12/28/23Order Info: [id number] - CBCD Performed By: #### L 501.9985, L500.4050, L502.0250, L100.0100, L501.5200, L500.4100 ####[facility] [address] [place], [address] Platelets (Bld) [#/Vol] 193 10*3/uL Normal 150-450 [facility] Comment on above: Order Comment: Order Date: 12/28/23Order Info: [id number] - CBCD Performed By: #### L 501.9985, L500.4050, L502.0250, L100.0100, L501.5200, L500.4100 ####[facility] [address] [place], [address] RBC (Bld) [#/Vol] 5.27 10*6/uL Normal 4.6-6.2 [facility] Comment on above: Order Comment: Order Date: 12/28/23Order Info: [id number] - CBCD Performed By: #### L 501.9985, L500.4050, L502.0250, L100.0100, L501.5200, L500.4100 ####[facility] [address] [place], [address] RDW SD 42.6 fl Normal 35.1-43.9 [facility] Comment on above: Order Comment: Order Date: 12/28/23Order Info: [id number] - CBCD Performed By: #### L 501.9985, L500.4050, L502.0250, L100.0100, L501.5200, L500.4100 ####[facility] [address] [place], [address] WBC (Bld) [#/Vol] 7.5 10*3/uL Normal 4.4-11.0 [facility] Comment on above: Order Comment: Order Date: 12/28/23Order Info: [id number] - CBCD Performed By: #### L 501.9985, L500.4050, L502.0250, L100.0100, L501.5200, L500.4100 ####[facility] [address] [place], [address] Comprehensive Metabolic Prof ilon 12-28-2023 Albumin [Mass/Vol] 3.2 g/dL Normal 3.2-5.0 [facility] Comment on above: Order Comment: Order Date: 12/28/23Order Info: [id number] - CMPOrder Info: [id number] - LIPIDOrder Info: [id number] - MG Performed By: #### L 501.9985, L500.4050, L502.0250, L100.0100, L501.5200, L500.4100 ####[facility] [address] [place], [address] Albumin/Globulin [Mass ratio] 0.7 {ratio} Low 0.9-2.4 [facility] Comment on above: Order Comment: Order Date: 12/28/23Order Info: [id number] - CMPOrder Info: [id number] - LIPIDOrder Info: - MG Performed By: #### L 501.9985, L500.4050, L502.0250, L100.0100, L501.5200, L500.4100 ####[facility] [address] [place], [address] ALK P 109 U/L Normal 45-117 [facility] Comment on above: Order Comment: Order Date: 12/28/23Order Info: [id number]- - CMPOrder Info: [id number] - LIPIDOrder Info: - MG Performed By: #### L 501.9985, L500.4050, L502.0250, L100.0100, L501.5200, L500.4100 ####[facility] [address] [place], [address] ALT [Catalytic activity/Vol] 27 U/L Normal 16-61 [facility] Comment on above: Order Comment: Order Date: 12/28/23Order Info: 785- - CMPOrder Info: [id number] - LIPIDOrder Info: - MG Performed By: #### L 501.9985, L500.4050, L502.0250, L100.0100, L501.5200, L500.4100 ####[facility] [address] [place], [address] AST [Catalytic activity/Vol] 27 U/L Normal 15-37 [facility] Comment on above: Order Comment: Order Date: 12/28/23Order Info: 07-1 - CMPOrder Info: [id number] - LIPIDOrder Info: - MG Performed By: #### L 501.9985, L500.4050, L502.0250, L100.0100, L501.5200, L500.4100 ####[facility] [address] [place], [address] Bilirubin [Mass/Vol] 0.50 mg/dL Normal 0.20-1.00 [facility] Comment on above: Order Comment: Order Date: 12/28/23Order Info: [id number] - CMPOrder Info: [id number] - LIPIDOrder Info: [id number] - MG Result Comment: For patients on eltrombopag therapy, use of Dimension [place] TBIL is not recommended. Performed By: #### L 501.9985, L500.4050, L502.0250, L100.0100, L501.5200, L500.4100 ####[facility] [address] [place], [address] BUN/CRE 19.5 RATIO Normal 10-20 [facility] Comment on above: Order Comment: Order Date: 12/28/23Order Info: 07 - CMPOrder Info: [id number] - LIPIDOrder Info: [id number] - MG Performed By: #### L 501.9985, L500.4050, L502.0250, L100.0100, L501.5200, L500.4100 ####[facility] [address] [place], [place], [address] CA,Total 9.5 mg/dL Normal 8.5-10.1 [facility] Comment on above: Order Comment: Order Date: 12/28/23Order Info: 07- - CMPOrder Info: [id number] - LIPIDOrder Info: [id number] - MG Performed By: #### L 501.9985, L500.4050, L502.0250, L100.0100, L501.5200, L500.4100 ####[facility] [address] [place], [place], [id number] Chloride [Moles/Vol] 101 mmol/L Normal 98-107 [facility] Comment on above: Order Comment: Order Date: 12/28/23Order Info: 07-1 - CMPOrder Info: [id number] - LIPIDOrder Info: [id number] - MG Performed By: #### L 501.9985, L500.4050, L502.0250, L100.0100, L501.5200, L500.4100 ####[facility] [address] [place], [address] CO2 [Moles/Vol] 23.0 mmol/L Normal 21.0-32.0 [facility] Comment on above: Order Comment: Order Date: 12/28/23Order Info: [id number] - CMPOrder Info: [id number] - LIPIDOrder Info: [id number] - MG Performed By: #### L 501.9985, L500.4050, L502.0250, L100.0100, L501.5200, L500.4100 ####[facility] [address] [place], [place], [address] Creatinine [Mass/Vol] 0.98 mg/dL Normal 0.70-1.30 [facility] Comment on above: Order Comment: Order Date: 12/28/23Order Info: [id number] - CMPOrder Info: - LIPIDOrder Info: [id number] - MG Result Comment: The validity of the calculated GFR GFRAA in patients over70 years has not been determined. Clinical correlation isessential. Performed By: #### L 501.9985, L500.4050, L502.0250, L100.0100, L501.5200, L500.4100 ####[facility] [address] [place], [address] EST GFR - AA 98 mL/min Normal >60 [facility] Comment on above: Order Comment: Order Date: 12/28/23Order Info: [id number] - CMPOrder Info: [id number] - LIPIDOrder Info: [id number] - MG Result Comment: Afri can Togolese GFR Calc Performed By: #### L 501.9985, L500.4050, L502.0250, L100.0100, L501.5200, L500.4100 ####[facility] [address] [place], [address] GAP 10 Normal 5-15 [facility] Comment on above: Order Comment: Order Date: 12/28/23Order Info: [id number] - CMPOrder Info: [id number] - LIPIDOrder Info: [id number] - MG Performed By: #### L 501.9985, L500.4050, L502.0250, L100.0100, L501.5200, L500.4100 ####[facility] [address] [place], [address] GFR/1.73 sq M.predicted among non-blacks MDRD (S/P/Bld) [Vol rate/Area] 81 mL/min/{1.73_m2} Normal >60 [facility] Comment on above: Order Comment: Order Date: 12/28/23Order Info: [id number]- - CMPOrder Info: [id number] - LIPIDOrder Info: [id number] - MG Result Comment: Non- GFR Calc Performed By: #### L 501.9985, L500.4050, L502.0250, L100.0100, L501.5200, L500.4100 ####[facility] [address] [place], [address] Globulin (S) [Mass/Vol] 4.4 g/dL High 2.2-4.2 [facility] Comment on above: Order Comment: Order Date: 12/28/23Order Info: [id number] - CMPOrder Info: [id number] - LIPIDOrder Info: [id number] - MG Performed By: #### L 501.9985, L500.4050, L502.0250, L100.0100, L501.5200, L500.4100 ####[facility] [address] [place], [address] Glucose [Mass/Vol] 301 mg/dL High 74-106 [facility] Comment on above: Order Comment: Order Date: 12/28/23Order Info: [id number] - CMPOrder Info: [id number] - LIPIDOrder Info: [id number] - MG Result Comment: Gluc ose result greater than or equal to 200 mg/dLsuggests DIABETES MELLITUS per A.D.A. criteria. Performed By: #### L 501.9985, L500.4050, L502.0250, L100.0100, L501.5200, L500.4100 ####[facility] [address] [place], [address] Potassium [Moles/Vol] 4.2 mmol/L Normal 3.5-5.1 [facility] Comment on above: Order Comment: Order Date: 12/28/23Order Info: [id number] - CMPOrder Info: [id number] - LIPIDOrder Info: [id number] - MG Performed By: #### L 501.9985, L500.4050, L502.0250, L100.0100, L501.5200, L500.4100 ####[facility] [address] [place], [address] Sodium [Moles/Vol] 134 mmol/L Low 136-145 [facility] Comment on above: Order Comment: Order Date: 12/28/23Order Info: 07- - CMPOrder Info: [id number] - LIPIDOrder Info: [id number] - MG Performed By: #### L 501.9985, L500.4050, L502.0250, L100.0100, L501.5200, L500.4100 ####[facility] [address] [place], [address] T PROT 7.6 g/dL Normal 6.4-8.2 [facility] Comment on above: Order Comment: Order Date: 12/28/23Order Info: [id number] - CMPOrder Info: [id number] - LIPIDOrder Info: [id number] - MG Performed By: #### L 501.9985, L500.4050, L502.0250, L100.0100, L501.5200, L500.4100 ####[facility] [address] [place], [address] Urea nitrogen [Mass/Vol] 19 mg/dL High 7-18 [facility] Comment on above: Order Comment: Order Date: 12/28/23Order Info: [id number] - CMPOrder Info: [id number] - LIPIDOrder Info: [id number] - MG Performed By: #### L 501.9985, L500.4050, L502.0250, L100.0100, L501.5200, L500.4100 ####[facility] [address] [place], [address] Hemoglobin A1con 12-28-2023 HbA1c (Bld) [Mass fraction] 10.6 % High 3.8-5.6 [facility] Comment on above: Order Comment: Order Date: 12/28/23Order Info: [id number] - A1C Result Comment: Norm al < 5.7 % Prediabetic 5.7 - 6.4 % Diabetic >or= 6.5 % Please note range changes. Performed By: #### L 501.9985, L500.4050, L502.0250, L100.0100, L501.5200, L500.4100 ####[facility] [address] [place], [address] Lipid Profileon 12-28-2023 Cholesterol [Mass/Vol] 201 mg/dL High 200 [facility] Comment on above: Order Comment: Order Date: 12/28/23Order Info: [id number] - CMPOrder Info: [id number] - LIPIDOrder Info: [id number] - MG Result Comment: <200 mg/dL Desirable 200-240 mg/dL Borderline >240 mg/dL High Risk Performed By: #### L 501.9985, L500.4050, L502.0250, L100.0100, L501.5200, L500.4100 ####[facility] [address] [place], [address] Cholesterol in HDL [Mass/Vol] 42 mg/dL Normal [facility] Comment on above: Order Comment: Order Date: 12/28/23Order Info: [id number] - CMPOrder Info: [id number] - LIPIDOrder Info: [id number] - MG Result Comment: The drugs N-Acetylcysteine and Metamizole may falselydepress this assay. Reference Range HDL <40 mg/dL Low HDL Cholesterol HDL >or= 60 mg/dL High HDL Cholesterol Performed By: #### L 501.9985, L500.4050, L502.0250, L100.0100, L501.5200, L500.4100 ####[facility] [address] [place], [address] Cholesterol in LDL [Mass/Vol] 97 mg/dL Normal 0-130 [facility] Comment on above: Order Comment: Order Date: 12/28/23Order Info: 07- - CMPOrder Info: [id number] - LIPIDOrder Info: [id number] - MG Performed By: #### L 501.9985, L500.4050, L502.0250, L100.0100, L501.5200, L500.4100 ####[facility] [address] [place], [address] Cholesterol in VLDL [Mass/Vol] 62 mg/dL High 5-40 [facility] Comment on above: Order Comment: Order Date: 12/28/23Order Info: [id number] - CMPOrder Info: [id number] - LIPIDOrder Info: [id number] - MG Performed By: #### L 501.9985, L500.4050, L502.0250, L100.0100, L501.5200, L500.4100 ####[facility] [address] [place], [address] Triglyceride [Mass/Vol] 309 mg/dL High [facility] Comment on above: Order Comment: Order Date: 12/28/23Order Info: 07-1 - CMPOrder Info: [id number] - LIPIDOrder Info: [id number] - MG Result Comment: The drugs N-Acetylcysteine and Metamizole may falselydepress this assay.Serum Triglycerides Reference Interval Normal <150 mg/dL Borderline high 150 - 199 mg/dL High 200 - 499 mg/dL Very High > or = 500 mg/dL Performed By: #### L 501.9985, L500.4050, L502.0250, L100.0100, L501.5200, L500.4100 ####[facility] [address] [place], [place], [id number] Magnesiumon 12-28-2023 Magnesium [Mass/Vol] 1.9 mg/dL Normal 1.6-2.6 [facility] Comment on above: Order Comment: Order Date: 12/28/23Order Info: [id number] - CMPOrder Info: [id number] - LIPIDOrder Info: [id number] - MG Performed By: #### L 501.9985, L500.4050, L502.0250, L100.0100, L501.5200, L500.4100 ####[facility] [address] [place], [address] Microalb:Creat Ratio,Random URon 12-28-2023 Creatinine [Mass/Vol] 110.00 mg/dL Normal NO RAN GE EST. [facility] Comment on above: Order Comment: Order Date: 12/28/23Order Info: [id number] - MIACRE Performed By: #### L 501.9985, L500.4050, L502.0250, L100.0100, L501.5200, L500.4100 ####[facility] [address] [place], [place], [address] MALB:CRE 455.5 mg/g CRE High <30 mg/g CRE [facility] Comment on above: Order Comment: Order Date: 12/28/23Order Info: [id number] - MIACRE Performed By: #### L 501.9985, L500.4050, L502.0250, L100.0100, L501.5200, L500.4100 ####[facility] [address] [place], [address] MICROALBUMIN,UR 501.0 mg/L Normal NO RANGE EST. [facility] Comment on above: Order Comment: Order Date: 12/28/23Order Info: [id number] - MIACRE Performed By: #### L 501.9985, L500.4050, L502.0250, L100.0100, L501.5200, L500.4100 ####[facility] [address] [place], [address] Urinalysis, Completeon 12-27 BACTERIA 0 SEEN Normal None Seen [facility] Comment on above: Order Comment: CLEAN CATCH Result Comment: This specimen has been REJECTED due to Laboratory criteria:Quantity Not Sufficient.Gordon Odom has been notified of need of recollection.12/28/231656 Lupis Balbuena Performed By: #### L 400.0001 ####[facility] [address] [place], [address] EPI,SQUAMOUS 0 SEEN Normal 0-5 [facility] Comment on above: Order Comment: CLEAN CATCH Result Comment: This specimen has been REJECTED due to Laboratory criteria:Quantity Not Sufficient.Gordon Odom has been notified of need of recollection.12/28/231656 Lupis Balbuena Performed By: #### L 400.0001 ####[facility] [address] [place], [address] Mucus Ql (Urine sed) 0 SEEN Normal [facility] Comment on above: Order Comment: CLEAN CATCH Result Comment: This specimen has been REJECTED due to Laboratory criteria:Quantity Not Sufficient.Gordon Odom has been notified of need of recollection.12/28/231656 Lupis Balbuena Performed By: #### L 400.0001 ####[facility] [address] [place], [address] RBC 0 SEEN Normal 0-5 [facility] Comment on above: Order Comment: CLEAN CATCH Result Comment: This specimen has been REJECTED due to Laboratory criteria:Quantity Not Sufficient.Gordon Lei has been notified of need of recollection.12/28/231656 Lupis Balbuena Performed By: #### L 400.0001 ####[facility] [address] [place], [address] WBC 0 SEEN Normal 0-5 [facility] Comment on above: Order Comment: CLEAN CATCH Result Comment: This specimen has been REJECTED due to Laboratory criteria:Quantity Not Sufficient.Gordon V has been notified of need of recollection.12/28/231656 Lupis Balbuena Performed By: #### L 400.0001 ####[facility] [address] [place], [address] BILIRUBIN URINE Normal Negative [facility] Comment on above: Order Comment: CLEAN CATCH Result Comment: This specimen has been REJECTED due to Laboratory criteria:Quantity Not Sufficient.Gordon Lei has been notified of need of recollection.12/28/231656 Lupis Balbuena Performed By: #### L 400.0001 ####[facility] [address] [facility] [address] Clarity (U) Normal Clear [facility] Comment on above: Order Comment: CLEAN CATCH Result Comment: This specimen has been REJECTED due to Laboratory criteria:Quantity Not Sufficient.Gordon Lei has been notified of need of recollection.12/28/231656 Lupis Balbuena Performed By: #### L 400.0001 ####[facility] [address] [place], [address] Color (U) Normal Yellow [facility] Comment on above: Order Comment: CLEAN CATCH Result Comment: This specimen has been REJECTED due to Laboratory criteria:Quantity Not Sufficient.Gordon Lei has been notified of need of recollection.12/28/231656 Lupis Balbuena Performed By: #### L 400.0001 ####[facility] [address] [place], [address] GLUCOSE, UR Normal Normal [facility] Comment on above: Order Comment: CLEAN CATCH Result Comment: This specimen has been REJECTED due to Laboratory criteria:Quantity Not Sufficient.Gordon V has been notified of need of recollection.12/28/231656 Lupis Balbuena Performed By: #### L 400.0001 ####[facility] [address] [place], [address] KETONE UR Normal Negative [facility] Comment on above: Order Comment: CLEAN CATCH Result Comment: This specimen has been REJECTED due to Laboratory criteria:Quantity Not Sufficient.Gordon Odom has been notified of need of recollection.12/28/231656 Lupis Balbuena Performed By: #### L 400.0001 ####[facility] [address] [place], [address] LEUK ESTERASE Normal Negative [facility] Comment on above: Order Comment: CLEAN CATCH Result Comment: This specimen has been REJECTED due to Laboratory criteria:Quantity Not Sufficient.Gordon Lei has been notified of need of recollection.12/28/231656 Lupis Balbuena Performed By: #### L 400.0001 ####[facility] [address] [place], [address] Nitrite Ql (U) Normal Negative [facility] Comment on above: Order Comment: CLEAN CATCH Result Comment: This specimen has been REJECTED due to Laboratory criteria:Quantity Not Sufficient.Gordon Lei has been notified of need of recollection.12/28/231656 Lupis Balbuena Performed By: #### L 400.0001 ####[facility] [address] [place], [address] OCCULT BLOOD-UR Normal Negative [facility] Comment on above: Order Comment: CLEAN CATCH Result Comment: This specimen has been REJECTED due to Laboratory criteria:Quantity Not Sufficient.Gordon Odom has been notified of need of recollection.12/28/231656 Lupis Balbuena Performed By: #### L 400.0001 ####[facility] [address] [place], [address] pH UR Normal 5.0 - 8.0 [facility] Comment on above: Order Comment: CLEAN CATCH Result Comment: This specimen has been REJECTED due to Laboratory criteria:Quantity Not Sufficient.Gordon Odom has been notified of need of recollection.12/28/231656 Lupis Balbuena Performed By: #### L 400.0001 ####[facility] [address] [place], [address] PROT DIPSTX Normal Negative [facility] Comment on above: Order Comment: CLEAN CATCH Result Comment: This specimen has been REJECTED due to Laboratory criteria:Quantity Not Sufficient.Gordon Odom has been notified of need of recollection.12/28/231656 Lupis Balbuena Performed By: #### L 400.0001 ####[facility] [address] [place], [address] SP.GR. DIPSTX Normal 1.002-1.030 [facility] Comment on above: Order Comment: CLEAN CATCH Result Comment: This specimen has been REJECTED due to Laboratory criteria:Quantity Not Sufficient.Gordon Odom has been notified of need of recollection.12/28/231656 Lupis Balbuena Performed By: #### L 400.0001 ####[facility] [address] [place], [address] UR Preservative Normal [facility] Comment on above: Order Comment: CLEAN CATCH Result Comment: This specimen has been REJECTED due to Laboratory criteria:Quantity Not Sufficient.Gordon Odom has been notified of need of recollection.12/28/231656 Lupis Balbuena Performed By: #### L 400.0001 ####[facility] [address] [place], [address] UROBILI Normal Normal [facility] Comment on above: Order Comment: CLEAN CATCH Result Comment: This specimen has been REJECTED due to Laboratory criteria:Quantity Not Sufficient.Gordon Odom has been notified of need of recollection.12/28/231656 Lupis Balbuena Performed By: #### L 400.0001 ####[facility] [address] [place], [address] Absolute lymphocyte countOrd ered By: Bernabe Reese on 09-09-2023 Lymphocytes Auto (Unsp spec) [#/Vol] 2.04 10*3/uL 0.83-4.51 [facility] Automated lymphocyte count a s percentage of total leukocytesOrdered By: Bernabe Reese on 09-09-2023 Lymphocytes/100 WBC Auto (Unsp spec) 26.5 % 19-41 [facility] Basophil percentageOrdered B y: Bernabe Reese on 09-09-2023 Basophils/100 WBC (Bld) 0.9 % 0-1 [facility] Bilirubin [Mass/Vol] 0.60 mg/dL 0.20-1.00 [facility] Comment on above: For patients on eltr ombopag therapy, use of Dimension [place] TBIL is not recommended. Chloride [Moles/Vol] 100 mmol/L 98-107 [facility] Cholesterol [Mass/Vol] 158 mg/dL <200 [facility] Comment on above: <200 mg/dL Desirable 200-240 mg/dL Borderline >240 mg/dL High Risk Eosinophils/100 WBC (Bld) 3.6 % 0-5 [facility] Glucose [Mass/Vol] 303 mg/dL 74-106 [facility] Comment on above: Glucose result great er than or equal to 200 mg/dLsuggests DIABETES MELLITUS per A.D.A. criteria. Hemoglobin (Bld) [Mass/Vol] 13.4 g/dL 13.0-16.5 [facility] Monocytes/100 WBC (Bld) 7.4 % 0-10 [facility] Neutrophils (Bld) [#/Vol] 4.7 10*3/uL 2.0-7.7 [facility] Neutrophils/100 WBC (Bld) 61.1 % 47-70 [facility] Potassium [Moles/Vol] 4.3 mmol/L 3.5-5.1 [facility] Protein [Mass/Vol] 7.7 g/dL 6.4-8.2 [facility] Sodium [Moles/Vol] 134 mmol/L 136-145 [facility] Triglyceride [Mass/Vol] 179 mg/dL <199 [facility] Comment on above: The drugs N-Acetylcy steine and Metamizole may falsely depress this assay.Serum Triglycerides Reference Interval Normal <150 mg/dL Borderline high 150 - 199 mg/dL High 200 - 499 mg/dL Very High > or = 500 mg/dL WBC (Bld) [#/Vol] 7.7 10*3/uL 4.4-11.0 [facility] Determination of erythrocyte mean corpuscular volume (MCV)Ordered By: Bernabe Reese on 09-09-2023 MCV (RBC) [Entitic vol] 81.7 fL 80-94 [facility] Erythrocyte distribution wid th ratioOrdered By: Bernabe Reese on 09-09-2023 Erythrocyte distribution width (RBC) [Ratio] 14.6 % 11.6-14.6 [facility] Erythrocyte distribution wid th standard deviationOrdered By: Bernabe Reese on 09-09-2023 Erythrocyte distribution width (RBC) [Entitic vol] 42.5 fL 35.1-43.9 [facility] Hematocrit Auto (Bld) [Volum e fraction]Ordered By: Bernabe Reese on 09-09-2023 Hematocrit (Bld) [Volume fraction] 43.2 % 40-54 [facility] Immature granulocytes/100 WB C Auto (Bld)Ordered By: Bernabe Reese on 09-09-2023 Immature granulocytes/100 WBC (Bld) 0.500 % 0.0-0.9 [facility] Comment on above: IG% - Immature Granu locytes (promyelocytes, myelocytes and metamyelocytes) > 1% indicates that a LEFT SHIFT is Present. Laboratory - Chemistry and C hemistry - challengeOrdered By: Bernabe Reese on 09-09-2023 Albumin/Globulin [Mass ratio] 0.7 {ratio} 0.9-2.4 [facility] ALP [Catalytic activity/Vol] 91 U/L 45-117 [facility] ALT [Catalytic activity/Vol] 22 U/L 16-61 [facility] Cholesterol in HDL [Mass/Vol] 42 mg/dL >40 [facility] Comment on above: The drugs N-Acetylcy steine and Metamizole may falsely depress this assay. Reference Range HDL <40 mg/dL Low HDL Cholesterol HDL >or= 60 mg/dL High HDL Cholesterol Cholesterol in LDL [Mass/Vol] 80 mg/dL 0-130 [facility] CO2 [Moles/Vol] 26.0 mmol/L 21.0-32.0 [facility] Globulin (S) [Mass/Vol] 4.6 g/dL 2.2-4.2 [facility] Urea nitrogen/Creatinine [Mass ratio] 20.3 mg/mg 10-20 [facility] Laboratory - Hematology and Cell countsOrdered By: Bernabe Reese on 09-09-2023 MCH (RBC) [Entitic mass] 25.3 pg 27.0-32.0 [facility] MCHC (RBC) [Mass/Vol] 31.0 g/dL 32-36 [facility] Nucleated RBC/100 WBC (Bld) [Ratio] 0 % 0-5 [facility] Platelet mean volume (Bld) [Entitic vol] 10.8 fL 6.2-12.0 [facility] Platelets (Bld) [#/Vol] 204 10*3/uL 150-450 [facility] No Panel InformationOrdered By: Bernabe Reese on 09-09-2023 Estimated GFR (MDRD) Amer 110 mL/min >60 [facility] Comment on above: GFR Calc Estimated GFR (MDRD) Non-Af Amer 91 mL/min >60 [facility] Comment on above: Non- GFR Calc VLDL Cholesterol 36 mg/dL 5-40 [facility] RBC Auto (Bld) [#/Vol]Ordere d By: Bernabe Reese on 09-09-2023 RBC (Bld) [#/Vol] 5.29 10*6/uL 4.6-6.2 [facility] Serum or plasma calcium everardo urement (mass/volume)Ordered By: Bernabe Reese on 09-09-2023 Calcium [Mass/Vol] 9.2 mg/dL 8.5-10.1 [facility] Serum or plasma creatinine m easurement (mass/volume)Ordered By: Bernabe Reese on 09-09-2023 Creatinine [Mass/Vol] 0.88 mg/dL 0.70-1.30 [facility] Comment on above: The validity of the calculated GFR & GFRAA in patients over 70 years has not been determined. Clinical correlation is essential. Serum or plasma urea nitroge n measurement (mass/volume)Ordered By: Bernabe Reese on 09-09-2023 Urea nitrogen [Mass/Vol] 18 mg/dL 7-18 [facility] Thin prep Papanicolaou smear with manual screeningOrdered By: Bernabe Reese on 09-09-2023 Thin prep Papanicolaou smear with manual screening 3.1 g/dL 3.2-5.0 [facility] Thin prep Papanicolaou smear with manual screening 23 U/L 15-37 [facility] Thin prep Papanicolaou smear with manual screening 8 5-15 [facility] Whole blood hemoglobin A1c/t otal hemoglobin ratio (mass fraction)Ordered By: Bernabe Reese on 09-09-2023 HbA1c (Bld) [Mass fraction] 9.6 % 3.8-5.6 [facility] Comment on above: Normal < 5.7 % Predi abetic 5.7 - 6.4 % Diabetic >or= 6.5 % Please note range changes. Absolute lymphocyte countOrd ered By: Bernabe Reese on 07-11-2023 Lymphocytes Auto (Unsp spec) [#/Vol] 1.91 10*3/uL 0.83-4.51 [facility] Automated lymphocyte count a s percentage of total leukocytesOrdered By: Bernabe Reese on 07-11-2023 Lymphocytes/100 WBC Auto (Unsp spec) 24.9 % 19-41 [facility] Basophil percentageOrdered B y: Bernabe Reese on 07-11-2023 Basophil percentage 0 SEEN /hpf 0-5 [facility] Basophils/100 WBC (Bld) 0.7 % 0-1 [facility] Bilirubin [Mass/Vol] 0.40 mg/dL 0.20-1.00 [facility] Comment on above: For patients on eltr ombopag therapy, use of Dimension [place] TBIL is not recommended. Chloride [Moles/Vol] 105 mmol/L 98-107 [facility] Cholesterol [Mass/Vol] 172 mg/dL <200 [facility] Comment on above: <200 mg/dL Desirable 200-240 mg/dL Borderline >240 mg/dL High Risk Eosinophils/100 WBC (Bld) 2.6 % 0-5 [facility] Glucose [Mass/Vol] 224 mg/dL 74-106 [facility] Comment on above: Glucose result great er than or equal to 200 mg/dLsuggests DIABETES MELLITUS per A.D.A. criteria. Hemoglobin (Bld) [Mass/Vol] 12.3 g/dL 13.0-16.5 [facility] Monocytes/100 WBC (Bld) 6.5 % 0-10 [facility] Neutrophils (Bld) [#/Vol] 5.0 10*3/uL 2.0-7.7 [facility] Neutrophils/100 WBC (Bld) 65.0 % 47-70 [facility] Potassium [Moles/Vol] 3.7 mmol/L 3.5-5.1 [facility] Protein [Mass/Vol] 7.4 g/dL 6.4-8.2 [facility] Sodium [Moles/Vol] 141 mmol/L 136-145 [facility] Triglyceride [Mass/Vol] 182 mg/dL <199 [facility] Comment on above: The drugs N-Acetylcy steine and Metamizole may falsely depress this assay.Serum Triglycerides Reference Interval Normal <150 mg/dL Borderline high 150 - 199 mg/dL High 200 - 499 mg/dL Very High > or = 500 mg/dL WBC (Bld) [#/Vol] 7.7 10*3/uL 4.4-11.0 [facility] Bilirubin Test strip Ql (U)O rdered By: Bernabe Reese on 07-11-2023 Bilirubin Ql (U) Negative Negative [facility] Determination of erythrocyte mean corpuscular volume (MCV)Ordered By: Bernabe Reese on 07-11-2023 MCV (RBC) [Entitic vol] 82.7 fL 80-94 [facility] Erythrocyte distribution wid th ratioOrdered By: Bernabe Reese on 07-11-2023 Erythrocyte distribution width (RBC) [Ratio] 14.8 % 11.6-14.6 [facility] Erythrocyte distribution wid th standard deviationOrdered By: Bernabe Reese on 07-11-2023 Erythrocyte distribution width (RBC) [Entitic vol] 44.7 fL 35.1-43.9 [facility] Hematocrit Auto (Bld) [Volum e fraction]Ordered By: Bernabe Reese on 07-11-2023 Hematocrit (Bld) [Volume fraction] 39.3 % 40-54 [facility] Immature granulocytes/100 WB C Auto (Bld)Ordered By: Bernabe Reese on 07-11-2023 Immature granulocytes/100 WBC (Bld) 0.300 % 0.0-0.9 [facility] Comment on above: IG% - Immature Granu locytes (promyelocytes, myelocytes and metamyelocytes) > 1% indicates that a LEFT SHIFT is Present. Ketones Test strip Ql (U)Ord ered By: Bernabe Reese on 07-11-2023 Ketones Ql (U) Negative Negative [facility] Laboratory - Chemistry and C hemistry - challengeOrdered By: Bernabe Reese on 07-11-2023 Albumin/Creatinine DL <= 1.0 mg/L (24H U) [Ratio] 234.6 mg/g CRE <30 [facility] Albumin/Globulin [Mass ratio] 0.7 {ratio} 0.9-2.4 [facility] ALP [Catalytic activity/Vol] 89 U/L 45-117 [facility] ALT [Catalytic activity/Vol] 23 U/L 16-61 [facility] Cholesterol in HDL (Body fld) [Mass/Vol] 46 mg/dL >40 [facility] Comment on above: The drugs N-Acetylcy steine and Metamizole may falsely depress this assay. Reference Range HDL <40 mg/dL Low HDL Cholesterol HDL >or= 60 mg/dL High HDL Cholesterol Cholesterol in LDL (Body fld) [Moles/Vol] 90 mg/dL 0-130 [facility] Cholesterol in VLDL Calc [Moles/Vol] 36 mg/dL 5-40 [facility] CO2 [Moles/Vol] 29.0 mmol/L 21.0-32.0 [facility] Globulin (S) [Mass/Vol] 4.4 g/dL 2.2-4.2 [facility] Magnesium [Mass/Vol] 1.8 mg/dL 1.6-2.6 [facility] Urea nitrogen/Creatinine [Mass ratio] 14.8 mg/mg 10-20 [facility] Laboratory - Hematology and Cell countsOrdered By: Bernabe Reese on 07-11-2023 MCH (RBC) [Entitic mass] 25.9 pg 27.0-32.0 [facility] MCHC (RBC) [Mass/Vol] 31.3 g/dL 32-36 [facility] Nucleated RBC/100 WBC (Bld) [Ratio] 0 % 0-5 [facility] Platelets (Bld) [#/Vol] 180 10*3/uL 150-450 [facility] Mucus LM Ql (Urine sed)Order ed By: Bernabe Reese on 07-11-2023 Mucus Ql (Urine sed) 0 SEEN /hpf [facility] Nitrite Test strip Ql (U)Ord ered By: Bernabe Reese on 07-11-2023 Nitrite Ql (U) Negative Negative [facility] No Panel InformationOrdered By: Bernabe Reese on 07-11-2023 Estimated GFR (MDRD) Amer 121 mL/min >60 [facility] Comment on above: GFR Calc Estimated GFR (MDRD) Non-Af Amer 100 mL/min >60 [facility] Comment on above: Non- GFR Calc Urine RBC 0 SEEN /hpf 0-5 [facility] Platelet mean volume Oscar-Ec ker (Bld) [Entitic vol]Ordered By: Bernabe Reese on 07-11-2023 Platelet mean volume (Bld) [Entitic vol] 10.6 fL 6.2-12.0 [facility] Protein Test strip Ql (U)Ord ered By: Bernabe Reese on 07-11-2023 Protein Ql (U) 30 mg/dl Negative [facility] RBC Auto (Bld) [#/Vol]Ordere d By: Bernabe Reese on 07-11-2023 RBC (Bld) [#/Vol] 4.75 10*6/uL 4.6-6.2 [facility] [facility] Serum or plasma calcium everardo urement (mass/volume)Ordered By: Bernabe Reese on 07-11-2023 Calcium [Mass/Vol] 9.3 mg/dL 8.5-10.1 [facility] Serum or plasma creatinine m easurement (mass/volume)Ordered By: Bernabe Reese on 07-11-2023 Creatinine [Mass/Vol] 0.81 mg/dL 0.70-1.30 [facility] Comment on above: The validity of the calculated GFR & GFRAA in patients over 70 years has not been determined. Clinical correlation is essential. Serum or plasma thyroid stim ulating hormone (TSH) measurement (units/volume)Ordered By: Bernabe Reese on 07-11-2023 TSH Qn 1.12 uIU/mL 0.358-3.74 [facility] Serum or plasma urea nitroge n measurement (mass/volume)Ordered By: Bernabe Reese on 07-11-2023 Urea nitrogen [Mass/Vol] 12 mg/dL 7-18 [facility] Squamous epithelial cells de tection in urine sediment by light microscopyOrdered By: Bernabe Reese on 07-11-2023 Epithelial cells.squamous LM Ql (Urine sed) 0-5 SEEN /hpf 0-5 [facility] Thin prep Papanicolaou smear with manual screeningOrdered By: Bernabe Reese on 07-11-2023 Thin prep Papanicolaou smear with manual screening 3.0 g/dL 3.2-5.0 [facility] Thin prep Papanicolaou smear with manual screening 22 U/L 15-37 [facility] Thin prep Papanicolaou smear with manual screening 7 5-15 [facility] Thin prep Papanicolaou smear with manual screening 305.0 mg/L NO RANGE EST. [facility] Urine blood detectionOrdered By: Bernabe Reese on 07-11-2023 RBC Ql (U) 10 /ul Negative [facility] Urine clarityOrdered By: Ruiz Reese on 07-11-2023 Clarity (U) Clear Clear [facility] Urine color determinationOrd ered By: Bernabe Reese on 07-11-2023 Color (U) Yellow Yellow [facility] Urine creatinine measurement (mass/volume)Ordered By: Bernabe Reese on 07-11-2023 Creatinine (U) [Mass/Vol] 130.00 mg/dL NO RANGE EST. [facility] Urine glucose detectionOrder ed By: Bernabe Reese on 07-11-2023 Glucose Ql (U) 250 mg/dl Normal [facility] Urine leukocyte esterase det ection by dipstickOrdered By: Bernabe Reese on 07-11-2023 Leukocyte esterase Test strip Ql (U) Negative Negative [facility] Urine pHOrdered By: Bernabe mac on 07-11-2023 pH (U) 5.0 [pH] 5.0 - 8.0 [facility] Urine sediment bacteria coun t by microscopy (number/high power field)Ordered By: Bernabe Reese on 07-11-2023 Bacteria LM.HPF (Urine sed) [#/Area] 0 /[HPF] None Seen [facility] Urine specific gravity measu rementOrdered By: Bernabe Reese on 07-11-2023 Specific gravity (U) [Rel density] 1.025 1.002-1.030 [facility] Urine urobilinogen measureme ntOrdered By: Bernabe Reese on 07-11-2023 Urobilinogen Ql (U) Normal mg/dl Normal [facility] Whole blood hemoglobin A1c/t otal hemoglobin ratio (mass fraction)Ordered By: Bernabe Reese on 07-11-2023 HbA1c (Bld) [Mass fraction] 9.8 % 3.8-5.6 [facility] Comment on above: Normal < 5.7 % Predi abetic 5.7 - 6.4 % Diabetic >or= 6.5 % Please note range changes. Absolute lymphocyte countOrd ered By: Julee Spain on 05-23-2023 Lymphocytes Auto (Unsp spec) [#/Vol] 2.17 10*3/uL 0.83-4.51 [facility] Basophil percentageOrdered B y: Julee Spain on 05-23-2023 Basophils/100 WBC (Bld) 0.5 % 0-1 [facility] Chloride [Moles/Vol] 102 mmol/L 98-107 [facility] Eosinophils/100 WBC (Bld) 3.0 % 0-5 [facility] Glucose [Mass/Vol] 166 mg/dL 74-106 [facility] Comment on above: Fasting Glucose resu lt greater than or equal to 126 mg/dL suggests DIABETES MELLITUS per A.D.A. criteria. Neutrophils (Bld) [#/Vol] 6.8 10*3/uL 2.0-7.7 [facility] Neutrophils/100 WBC (Bld) 67.7 % 47-70 [facility] Potassium [Moles/Vol] 3.8 mmol/L 3.5-5.1 [facility] Sodium [Moles/Vol] 137 mmol/L 136-145 [facility] WBC (Bld) [#/Vol] 10.1 10*3/uL 4.4-11.0 [facility] Blood erythrocytes count (nu mber/volume)Ordered By: Julee Spain on 05-23-2023 RBC (Bld) [#/Vol] 4.82 10*6/uL 4.6-6.2 [facility] Blood hemoglobin measurement (mass/volume)Ordered By: Julee Spain on 05-23-2023 Hemoglobin (Bld) [Mass/Vol] 12.5 g/dL 13.0-16.5 [facility] Blood lymphocytes/100 leukoc ytesOrdered By: Julee Spain on 05-23-2023 Lymphocytes/100 WBC (Bld) 21.5 % 19-41 [facility] Blood monocytes/100 leukocyt esOrdered By: Julee Spain on 05-23-2023 Monocytes/100 WBC (Bld) 6.8 % 0-10 [facility] Blood platelet mean volumeOr dered By: Julee Spain on 05-23-2023 Platelet mean volume (Bld) [Entitic vol] 9.7 fL 6.2-12.0 [facility] Determination of erythrocyte mean corpuscular volume (MCV)Ordered By: Julee Spain on 05-23-2023 MCV (RBC) [Entitic vol] 84.0 fL 80-94 [facility] Glucose Glucometer (BldC) [M ass/Vol]Ordered By: Julee Spain on 05-23-2023 Glucose [Mass/Vol] 175 mg/dL 74-106 [facility] Comment on above: MANAGEMENT OF PATIEN T CARE PER NURSING PROTOCOL Hematocrit Auto (Bld) [Volum e fraction]Ordered By: Julee Spain on 05-23-2023 Hematocrit (Bld) [Volume fraction] 40.5 % 40-54 [facility] Laboratory - Chemistry and C hemistry - challengeOrdered By: Julee Spain on 05-23-2023 CO2 [Moles/Vol] 32.0 mmol/L 21.0-32.0 [facility] Urea nitrogen/Creatinine [Mass ratio] 24.5 mg/mg 10-20 [facility] Laboratory - Hematology and Cell countsOrdered By: Julee Spain on 05-23-2023 Erythrocyte distribution width (RBC) [Entitic vol] 42.7 fL 35.1-43.9 [facility] Erythrocyte distribution width (RBC) [Ratio] 14.1 % 11.6-14.6 [facility] Immature granulocytes/100 WBC (Bld) 0.500 % 0.0-0.9 [facility] Comment on above: IG% - Immature Granu locytes (promyelocytes, myelocytes and metamyelocytes) > 1% indicates that a LEFT SHIFT is Present. MCH (RBC) [Entitic mass] 25.9 pg 27.0-32.0 [facility] Nucleated RBC/100 WBC (Bld) [Ratio] 0 % 0-5 [facility] MCHC Auto (RBC) [Mass/Vol]Or dered By: Julee Spain on 05-23-2023 MCHC (RBC) [Mass/Vol] 30.9 g/dL 32-36 [facility] No Panel InformationOrdered By: Julee Spain on 05-23-2023 Estimated Creatinine Clearance Calc 83.41 ml/min [facility] Estimated GFR (MDRD) Amer 121 mL/min >60 [facility] Comment on above: GFR Calc Estimated GFR (MDRD) Non-Af Amer 100 mL/min >60 [facility] Comment on above: Non- GFR Calc Platelets bldOrdered By: Blanca Spain on 05-23-2023 Platelets (Bld) [#/Vol] 209 10*3/uL 150-450 [facility] Serum or plasma calcium everardo urement (mass/volume)Ordered By: Julee Spain on 05-23-2023 Calcium [Mass/Vol] 8.6 mg/dL 8.5-10.1 [facility] Serum or plasma creatinine m easurement (mass/volume)Ordered By: Julee Spain on 05-23-2023 Creatinine [Mass/Vol] 0.82 mg/dL 0.70-1.30 [facility] Comment on above: The validity of the calculated GFR & GFRAA in patients over 70 years has not been determined. Clinical correlation is essential. Serum or plasma urea nitroge n measurement (mass/volume)Ordered By: Julee Spain on 05-23-2023 Urea nitrogen [Mass/Vol] 20 mg/dL 7-18 [facility] Thin prep Papanicolaou smear with manual screeningOrdered By: Julee Spain on 05-23-2023 Thin prep Papanicolaou smear with manual screening 3 5-15 [facility] Assessment of wrist artery p atency prior to arterial punctureOrdered By: Julee Spain on 05-22-2023 Arterial patency Wrist artery --pre arterial puncture Positive [facility] Base excessOrdered By: Marilee Spain on 05-22-2023 Base excess Calc (BldV) [Moles/Vol] 3 mmol/L -2-2 [facility] Basophil percentageOrdered B y: Julee Spain on 05-22-2023 Basophil percentage 27.7 mmol/L 22-26 [facility] Basophils/100 WBC (Bld) 93 % 95-99 [facility] Basophil percentageOrdered B y: Haily Javier on 05-22-2023 Lactate [Moles/Vol] 1.1 mmol/L 0.4-2.0 [facility] CO2 (BldA) [Partial pressure ]Ordered By: Julee Spain on 05-22-2023 CO2 (Bld) [Partial pressure] 46.4 mm[Hg] 35-45 [facility] No Panel InformationOrdered By: Julee Spain on 05-22-2023 Blood Gas Sample Site L Radial [facility] Blood Gas Specimen Type ART [facility] Blood Gas Total CO2 29 mmol/L [facility] Blood Gas Vent Mode Not entered [facility] Oxygen Delivery Device Room Air [facility] Oxygen (BldA) [Partial press ure]Ordered By: Julee Spain on 05-22-2023 Oxygen (Bld) [Partial pressure] 68 mmHG 75-100 [facility] Serum or plasma trough vanco mycin levelOrdered By: Haily Javier on 05-22-2023 Vancomycin trough [Mass/Vol] 20.0 ug/mL 5.0-15.0 [facility] Comment on above: VANCOMYCIN STANDARED DRUG THERAPY TROUGH LEVEL: 5.0 - 15.0 mg/L VANCOMYCIN HIGH INTENSITY THERAPY TROUGH LEVEL: 15.0 - 20.0 mg/L High Intensity therapy recommended for serious lifethreatening infections include:- Nnwfrkpudo-Qeuayqdcflmk-Zkjcfskuv (Ventilator/Healtcare Associated)-Sepsis PLEASE CONTACT PHARMACY SERVICES (#[id number]) FOR INTERPRETATIONOF RESULTS. Whole blood hemoglobin A1c/t otal hemoglobin ratio (mass fraction)Ordered By: Haily Javier on 05-22-2023 HbA1c (Bld) [Mass fraction] 10.4 % 3.8-5.6 [facility] Comment on above: Normal < 5.7 % Predi abetic 5.7 - 6.4 % Diabetic >or= 6.5 % Please note range changes. pH measurementOrdered By: Opal Spain on 05-22-2023 pH (Unsp spec) 7.38 [pH] 7.35-7.45 [facility] Basophil percentageOrdered B y: Sourav Kim on 05-21-2023 Basophil percentage 0 SEEN /hpf 0-5 [facility] Bilirubin Test strip Ql (U)O rdered By: Sourav Kim on 05-21-2023 Bilirubin Ql (U) Negative Negative [facility] Culture, urineOrdered By: Theresa Luevano on 05-21-2023 Bacteria identified Cx Nom (U) Positive [facility] Bacteria identified Cx Nom (U) Positive [facility] Influenza virus A and B and SARS-CoV-2 (COVID-19) Ag panel - Upper respiratory specimOrdered By: Sourav Kim on 05-21-2023 SARS-CoV-2 (COVID-19) RNA BILL+probe Ql (Resp) [facility] Ketones Test strip Ql (U)Ord ered By: Sourav Kim on 05-21-2023 Ketones Ql (U) 5 mg/dl Negative [facility] Laboratory - Chemistry and C hemistry - challengeOrdered By: Sourav Kim on 05-21-2023 Natriuretic peptide B (Bld) [Mass/Vol] 29.8 pg/mL 0-100 [facility] Laboratory - Microbiology an d Antimicrobial susceptibilityOrdered By: Sourav Kim on 05-21-2023 Bacteria identified Cx Nom (Bld) No growth in 5 days. [facility] Mucus LM Ql (Urine sed)Order ed By: Sourav Kim on 05-21-2023 Mucus Ql (Urine sed) 0 SEEN /hpf [facility] Nitrite Test strip Ql (U)Ord ered By: Sourav Kim on 05-21-2023 Nitrite Ql (U) Negative Negative [facility] No Panel InformationOrdered By: Sourav Kim on 05-21-2023 Troponin I High Sensitivity 10 pg/mL 3.0-78.0 [facility] Comment on above: Please Note: New [place] t Units and Gender Specific Reference Ranges. For more information see Policy Stat Procedure [place] High Sensitivity Troponin (TNIH) and attachments. Protein Test strip Ql (U)Ord ered By: Sourav Kim on 05-21-2023 Protein Ql (U) 30 mg/dl Negative [facility] Serum or plasma C reactive p rotein measurement (mass/volume)Ordered By: Haily Javier on 05-21-2023 CRP [Mass/Vol] 159.00 mg/L 0.0-3.0 [facility] Comment on above: C-Reactive Protein ( CRP) provides useful information for thediagnosis, therapy and monitoring of inflammatory processesand associated diseases. For the evaluation of Relative Riskfor Cardiovascular Disease, a High Sensitivity CRP (HSCRP)should be ordered. Squamous epithelial cells de tection in urine sediment by light microscopyOrdered By: Sourav Kim on 05-21-2023 Epithelial cells.squamous LM Ql (Urine sed) 0-5 SEEN /hpf 0-5 [facility] Upper respiratory specimen i nfluenza A virus, influenza B virus, and severe acute resOrdered By: Sourav Kim on 05-21-2023 Upper respiratory specimen influenza A virus, influenza B virus, and severe acute res [facility] Urine blood detectionOrdered By: Sourav Kim on 05-21-2023 RBC Ql (U) 10 /ul Negative [facility] RBC Ql (U) 0 SEEN /hpf 0-5 [facility] Urine clarityOrdered By: Jocelyn Kim on 05-21-2023 Clarity (U) Clear Clear [facility] Urine color determinationOrd ered By: Sourav Kim on 12-02-2023 Color (U) Yellow Yellow [facility] Urine glucose detectionOrder ed By: Sourav Kim on 05-21-2023 Glucose Ql (U) 1000 mg/dl Normal [facility] Urine leukocyte esterase det ection by dipstickOrdered By: Sourav Kim on 05-21-2023 Leukocyte esterase Test strip Ql (U) Negative Negative [facility] Urine pHOrdered By: Sourav yañez on 05-21-2023 pH (U) 5.0 [pH] 5.0 - 8.0 [facility] Urine sediment bacteria coun t by microscopy (number/high power field)Ordered By: Sourav Kim on 05-21-2023 Bacteria LM.HPF (Urine sed) [#/Area] RARE /hpf None Seen [facility] Urine sediment uric acid cry stal count by microscopy (number/high power field)Ordered By: Sourav Kim on 05-21-2023 Urate crystals LM.HPF (Urine sed) [#/Area] RARE /hpf [facility] Urine specific gravity measu rementOrdered By: Sourav iKm on 05-21-2023 Specific gravity (U) [Rel density] 1.020 1.002-1.030 [facility] Urobilinogen Auto test strip Ql (U)Ordered By: Sourav Kim on 05-21-2023 Urobilinogen Ql (U) Normal mg/dl Normal [facility] Absolute lymphocyte countOrd ered By: Bernabe Reese on 04-15-2023 Lymphocytes Auto (Unsp spec) [#/Vol] 2.21 10*3/uL 0.83-4.51 [facility] Basophil percentageOrdered B y: Bernabe Reese on 04-15-2023 Basophils/100 WBC (Bld) 0.7 % 0-1 [facility] Bilirubin [Mass/Vol] 0.30 mg/dL 0.20-1.00 [facility] Comment on above: For patients on eltr ombopag therapy, use of Dimension [place] TBIL is not recommended. Chloride [Moles/Vol] 102 mmol/L 98-107 [facility] Cholesterol [Mass/Vol] 127 mg/dL <200 [facility] Comment on above: <200 mg/dL Desirable 200-240 mg/dL Borderline >240 mg/dL High Risk Eosinophils/100 WBC (Bld) 2.1 % 0-5 [facility] Glucose [Mass/Vol] 322 mg/dL 74-106 [facility] Comment on above: Glucose result great er than or equal to 200 mg/dLsuggests DIABETES MELLITUS per A.D.A. criteria. Neutrophils (Bld) [#/Vol] 5.7 10*3/uL 2.0-7.7 [facility] Neutrophils/100 WBC (Bld) 65.4 % 47-70 [facility] Potassium [Moles/Vol] 4.6 mmol/L 3.5-5.1 [facility] Protein [Mass/Vol] 7.8 g/dL 6.4-8.2 [facility] Sodium [Moles/Vol] 137 mmol/L 136-145 [facility] Triglyceride [Mass/Vol] 283 mg/dL <199 [facility] Comment on above: The drugs N-Acetylcy steine and Metamizole may falsely depress this assay.Serum Triglycerides Reference Interval Normal <150 mg/dL Borderline high 150 - 199 mg/dL High 200 - 499 mg/dL Very High > or = 500 mg/dL WBC (Bld) [#/Vol] 8.7 10*3/uL 4.4-11.0 [facility] Blood erythrocytes count (nu mber/volume)Ordered By: Bernabe Reese on 04-15-2023 RBC (Bld) [#/Vol] 5.02 10*6/uL 4.6-6.2 [facility] Blood hemoglobin measurement (mass/volume)Ordered By: Bernabe Reese on 04-15-2023 Hemoglobin (Bld) [Mass/Vol] 13.0 g/dL 13.0-16.5 [facility] Blood lymphocytes/100 leukoc ytesOrdered By: Bernabe Reese on 04-15-2023 Lymphocytes/100 WBC (Bld) 25.3 % 19-41 [facility] Blood monocytes/100 leukocyt esOrdered By: Bernabe Reese on 04-15-2023 Monocytes/100 WBC (Bld) 6.2 % 0-10 [facility] Blood platelet mean volumeOr dered By: Bernabe Reese on 04-15-2023 Platelet mean volume (Bld) [Entitic vol] 10.3 fL 6.2-12.0 [facility] Determination of erythrocyte mean corpuscular volume (MCV)Ordered By: Bernabe Reese on 04-15-2023 MCV (RBC) [Entitic vol] 84.9 fL 80-94 [facility] Hematocrit Auto (Bld) [Volum e fraction]Ordered By: Bernabe Reese on 04-15-2023 Hematocrit (Bld) [Volume fraction] 42.6 % 40-54 [facility] Iron measurement (mass/mass) Ordered By: Bernabe Reese on 04-15-2023 Iron (Unsp spec) [Mass/Mass] 71 ug/dL 65-175 [facility] Laboratory - Chemistry and C hemistry - challengeOrdered By: Bernabe Reese on 04-15-2023 ALP [Catalytic activity/Vol] 82 U/L 45-117 [facility] ALT [Catalytic activity/Vol] 25 U/L 16-61 [facility] CO2 [Moles/Vol] 31.0 mmol/L 21.0-32.0 [facility] Globulin (S) [Mass/Vol] 4.6 g/dL 2.2-4.2 [facility] Magnesium [Mass/Vol] 2.0 mg/dL 1.6-2.6 [facility] Urea nitrogen/Creatinine [Mass ratio] 20.0 mg/mg 10-20 [facility] Laboratory - Hematology and Cell countsOrdered By: Bernabe Reese on 04-15-2023 Erythrocyte distribution width (RBC) [Entitic vol] 43.5 fL 35.1-43.9 [facility] Erythrocyte distribution width (RBC) [Ratio] 14.2 % 11.6-14.6 [facility] Immature granulocytes/100 WBC (Bld) 0.300 % 0.0-0.9 [facility] Comment on above: IG% - Immature Granu locytes (promyelocytes, myelocytes and metamyelocytes) > 1% indicates that a LEFT SHIFT is Present. MCH (RBC) [Entitic mass] 25.9 pg 27.0-32.0 [facility] Nucleated RBC/100 WBC (Bld) [Ratio] 0 % 0-5 [facility] MCHC Auto (RBC) [Mass/Vol]Or dered By: Bernabe Resee on 04-15-2023 MCHC (RBC) [Mass/Vol] 30.5 g/dL 32-36 [facility] No Panel InformationOrdered By: Bernabe Reese on 04-15-2023 Estimated GFR (MDRD) Amer 90 mL/min >60 [facility] Comment on above: GFR Calc Estimated GFR (MDRD) Non-Af Amer 75 mL/min >60 [facility] Comment on above: Non- GFR Calc Prostate Specific Antigen Screen 2.52 ng/mL 0.00-4.00 [facility] Comment on above: This test was perfor med using the TPSA assay method for Therative chemistry system. Values obtained with differentassay methods cannot be used interchangably.When changing PSA assays in the course of monitoring apatient, additional sequential testing should be carriedout to confirm baseline values. Thyroid Stimulating Hormone (TSH) 1.07 uIU/mL 0.358-3.74 [facility] Total Iron Binding Capacity 368 ug/dL 250-450 [facility] Platelets bldOrdered By: Ruiz Reese on 04-15-2023 Platelets (Bld) [#/Vol] 218 10*3/uL 150-450 [facility] Serum or plasma albumin everardo urement (mass/volume)Ordered By: Bernabe Reese on 04-15-2023 Albumin [Mass/Vol] 3.2 g/dL 3.2-5.0 [facility] Serum or plasma albumin/glob ulin mass ratioOrdered By: Bernabe Reese on 04-15-2023 Albumin/Globulin [Mass ratio] 0.7 {ratio} 0.9-2.4 [facility] Serum or plasma calcium everardo urement (mass/volume)Ordered By: Bernabe Reese on 04-15-2023 Calcium [Mass/Vol] 9.8 mg/dL 8.5-10.1 [facility] Serum or plasma cholesterol in HDL measurement (mass/volume)Ordered By: Bernabe Reese on 04-15-2023 Cholesterol in HDL [Mass/Vol] 37 mg/dL >40 [facility] Comment on above: The drugs N-Acetylcy steine and Metamizole may falsely depress this assay. Reference Range HDL <40 mg/dL Low HDL Cholesterol HDL >or= 60 mg/dL High HDL Cholesterol Serum or plasma cholesterol in VLDL measurement (mass/volume)Ordered By: Bernabe Reese on 04-15-2023 Cholesterol in VLDL [Mass/Vol] 57 mg/dL 5-40 [facility] Serum or plasma creatinine m easurement (mass/volume)Ordered By: Bernabe Reese on 04-15-2023 Creatinine [Mass/Vol] 1.05 mg/dL 0.70-1.30 [facility] Comment on above: The validity of the calculated GFR & GFRAA in patients over 70 years has not been determined. Clinical correlation is essential. Serum or plasma ferritin hilda surement (mass/volume)Ordered By: Bernabe Reese on 04-15-2023 Ferritin [Mass/Vol] 33 ng/mL 26-388 [facility] Serum or plasma low density lipoprotein (LDL) cholesterol measurement (mass/volume)Ordered By: Bernabe Reese on 04-15-2023 Cholesterol in LDL [Mass/Vol] 33 mg/dL 0-130 [facility] Serum or plasma urea nitroge n measurement (mass/volume)Ordered By: Bernabe Reese on 04-15-2023 Urea nitrogen [Mass/Vol] 21 mg/dL 7-18 [facility] Thin prep Papanicolaou smear with manual screeningOrdered By: Bernabe Reese on 04-15-2023 Thin prep Papanicolaou smear with manual screening 20 U/L 15-37 [facility] Thin prep Papanicolaou smear with manual screening 4 5-15 [facility] Whole blood hemoglobin A1c/t otal hemoglobin ratio (mass fraction)Ordered By: Bernabe Reese on 04-15-2023 HbA1c (Bld) [Mass fraction] 10.2 % 3.8-5.6 [facility] Comment on above: Normal < 5.7 % Predi abetic 5.7 - 6.4 % Diabetic >or= 6.5 % Please note range changes. Absolute lymphocyte countOrd ered By: Dr. Zimmerman on 12-03-2022 Lymphocytes Auto (Unsp spec) [#/Vol] 1.91 10*3/uL 0.83-4.51 [facility] Basophil percentageOrdered B y: Dr. Zimmerman on 12-03-2022 Basophils/100 WBC (Bld) 0.6 % 0-1 [facility] Chloride [Moles/Vol] 104 mmol/L 98-107 [facility] Eosinophils/100 WBC (Bld) 2.2 % 0-5 [facility] Glucose [Mass/Vol] 193 mg/dL 74-106 [facility] Comment on above: Fasting Glucose resu lt greater than or equal to 126 mg/dL suggests DIABETES MELLITUS per A.D.A. criteria. Neutrophils (Bld) [#/Vol] 6.0 10*3/uL 2.0-7.7 [facility] Neutrophils/100 WBC (Bld) 66.9 % 47-70 [facility] Potassium [Moles/Vol] 4.0 mmol/L 3.5-5.1 [facility] Sodium [Moles/Vol] 139 mmol/L 136-145 [facility] WBC (Bld) [#/Vol] 9.0 10*3/uL 4.4-11.0 [facility] Blood erythrocytes count (nu mber/volume)Ordered By: Dr. Zimmerman on 12-03-2022 RBC (Bld) [#/Vol] 4.72 10*6/uL 4.6-6.2 [facility] Blood hemoglobin measurement (mass/volume)Ordered By: Dr. Zimmerman on 12-03-2022 Hemoglobin (Bld) [Mass/Vol] 13.0 g/dL 13.0-16.5 [facility] Blood lymphocytes/100 leukoc ytesOrdered By: Dr. Zimmerman on 12-03-2022 Lymphocytes/100 WBC (Bld) 21.3 % 19-41 [facility] Blood monocytes/100 leukocyt esOrdered By: Dr. Zimmerman on 12-03-2022 Monocytes/100 WBC (Bld) 7.9 % 0-10 [facility] Blood platelet mean volumeOr dered By: Dr. Zimmerman on 12-03-2022 Platelet mean volume (Bld) [Entitic vol] 10.1 fL 6.2-12.0 [facility] COVID-19 virus antigen assay Ordered By: Dr. Zimmerman on 12-03-2022 SARS-CoV-2 (COVID-19) Ag IA.rapid Ql (Resp) [facility] Determination of erythrocyte mean corpuscular volume (MCV)Ordered By: Dr. Zimmerman on 12-03-2022 MCV (RBC) [Entitic vol] 84.7 fL 80-94 [facility] Glucose Glucometer (BldC) [M ass/Vol]Ordered By: Dr. Zimmerman on 12-03-2022 Glucose [Mass/Vol] 218 mg/dL 74-106 [facility] Comment on above: MANAGEMENT OF PATIEN T CARE PER NURSING PROTOCOL Hematocrit Auto (Bld) [Volum e fraction]Ordered By: Dr. Zimmerman on 12-03-2022 Hematocrit (Bld) [Volume fraction] 40.0 % 40-54 [facility] Laboratory - Chemistry and C hemistry - challengeOrdered By: Dr. Zimmerman on 12-03-2022 CO2 [Moles/Vol] 29.0 mmol/L 21.0-32.0 [facility] Urea nitrogen/Creatinine [Mass ratio] 27.8 mg/mg 10-20 [facility] Laboratory - Hematology and Cell countsOrdered By: Dr. Zimmerman on 12-03-2022 Erythrocyte distribution width (RBC) [Entitic vol] 43.1 fL 35.1-43.9 [facility] Erythrocyte distribution width (RBC) [Ratio] 13.9 % 11.6-14.6 [facility] Immature granulocytes/100 WBC (Bld) 1.100 % 0.0-0.9 [facility] Comment on above: IG% - Immature Granu locytes (promyelocytes, myelocytes and metamyelocytes) > 1% indicates that a LEFT SHIFT is Present. MCH (RBC) [Entitic mass] 27.5 pg 27.0-32.0 [facility] Nucleated RBC/100 WBC (Bld) [Ratio] 0 % 0-5 [facility] MCHC Auto (RBC) [Mass/Vol]Or dered By: Dr. Zimmerman on 12-03-2022 MCHC (RBC) [Mass/Vol] 32.5 g/dL 32-36 [facility] No Panel InformationOrdered By: Dr. Zimmerman on 12-03-2022 Estimated Creatinine Clearance Calc 68.40 ml/min [facility] Estimated GFR (MDRD) Amer 169 mL/min >60 [facility] Comment on above: GFR Calc Estimated GFR (MDRD) Non-Af Amer 139 mL/min >60 [facility] Comment on above: Non- GFR Calc Platelets bldOrdered By: Dr. Zimmerman on 12-03-2022 Platelets (Bld) [#/Vol] 191 10*3/uL 150-450 [facility] Serum or plasma calcium everardo urement (mass/volume)Ordered By: Dr. Zimmerman on 12-03-2022 Calcium [Mass/Vol] 8.9 mg/dL 8.5-10.1 [facility] Serum or plasma creatinine m easurement (mass/volume)Ordered By: Dr. Zimmerman on 12-03-2022 Creatinine [Mass/Vol] 0.61 mg/dL 0.70-1.30 [facility] Comment on above: The validity of the calculated GFR & GFRAA in patients over 70 years has not been determined. Clinical correlation is essential. Serum or plasma urea nitroge n measurement (mass/volume)Ordered By: Dr. Zimmerman on 12-03-2022 Urea nitrogen [Mass/Vol] 17 mg/dL -18 [facility] Thin prep Papanicolaou smear with manual screeningOrdered By: Dr. Zimmerman on 12-03-2022 Thin prep Papanicolaou smear with manual screening 6 11-01 [facility] Laboratory - Microbiology an d Antimicrobial susceptibilityOrdered By: Dr. Bailey on 12-02-2022 Bacteria identified Cx Nom (Bld) Streptococcus agalactiae (B) [facility] Culture, urineOrdered By: Dr Evette Bailey on 12-01-2022 Bacteria identified Cx Nom (U) Streptococcus agalactiae (B) [facility] Bacteria identified Cx Nom (U) Presumptive C albicans [facility] Basophil percentageOrdered B y: Dr. Bailey on 11-28-2022 Lactate [Moles/Vol] 1.7 mmol/L 0.4-2.0 [facility] Basophil percentage >100 SEEN /hpf 0-5 [facility] Bilirubin [Mass/Vol] 1.10 mg/dL 0.20-1.00 [facility] Comment on above: For patients on eltr ombopag therapy, use of Dimension [place] TBIL is not recommended. Protein [Mass/Vol] 7.6 g/dL 6.4-8.2 [facility] Bilirubin Test strip Ql (U)O rdered By: Dr. Bailey on 11-28-2022 Bilirubin Ql (U) Negative Negative [facility] INR in Blood by Coagulation assayOrdered By: Dr. Bailey on 11-28-2022 INR Coag (Bld) [Relative time] 1.4 {INR} [facility] Ketones Test strip Ql (U)Ord ered By: Dr. Bailey on 11-28-2022 Ketones Ql (U) 150 mg/dl Negative [facility] Comment on above: CRITICAL VALUE *HCRI TICAL VALUE VERIFIED. CALLED TO ALONA CURTIS11/28/22 1201 Lupis Balbuena.RESULTS READ BACK BY SAME . Laboratory - Chemistry and C hemistry - challengeOrdered By: Dr. Bailey on 11-28-2022 ALP [Catalytic activity/Vol] 92 U/L 45-117 [facility] ALT [Catalytic activity/Vol] 26 U/L 16-61 [facility] CK [Catalytic activity/Vol] 544 U/L 39-308 [facility] Globulin (S) [Mass/Vol] 4.4 g/dL 2.2-4.2 [facility] Laboratory - CoagulationOrde red By: Dr. Bialey on 11-28-2022 aPTT Coag (Bld) [Time] 28.2 s 24.1-36.2 [facility] PT Coag (PPP) [Time] 17.1 s 11.7-14.9 [facility] Mucus LM Ql (Urine sed)Order ed By: Dr. Bailey on 11-28-2022 Mucus Ql (Urine sed) 0 SEEN /hpf [facility] Nitrite Test strip Ql (U)Ord ered By: Dr. Bailey on 11-28-2022 Nitrite Ql (U) Negative Negative [facility] No Panel InformationOrdered By: Dr. Zimmerman on 11-28-2022 Troponin I High Sensitivity 65 pg/mL 3.0-78.0 [facility] Comment on above: Please Note: New [place] t Units and Gender Specific Reference Ranges. For more information see Policy Stat Procedure [place] High Sensitivity Troponin (TNIH) and attachments. No Panel InformationOrdered By: Dr. Bailey on 11-28-2022 Ethyl Alcohol Level < 3.0 mg/dL [facility] Comment on above: The serum:whole bloo d ethanol ratio is approximately 1.14and varies slightly with hematocrit. Medical Alcohol reference interval and critical value innon-tolerant individuals; 50 - 100 Impairment 100 Intoxication 100 - 250 Severe Poisoning 250 - 400 Deep/possible fatal coma Protein Test strip Ql (U)Ord ered By: Dr. Bailey on 11-28-2022 Protein Ql (U) 100 mg/dl Negative [facility] Serum or plasma albumin everardo urement (mass/volume)Ordered By: Dr. Bailey on 11-28-2022 Albumin [Mass/Vol] 3.2 g/dL 3.2-5.0 [facility] Serum or plasma albumin/glob ulin mass ratioOrdered By: Dr. Bailey on 11-28-2022 Albumin/Globulin [Mass ratio] 0.7 {ratio} 0.9-2.4 [facility] Squamous epithelial cells de tection in urine sediment by light microscopyOrdered By: Dr. Bailey on 11-28-2022 Epithelial cells.squamous LM Ql (Urine sed) 0-5 SEEN /hpf 0-5 [facility] Thin prep Papanicolaou smear with manual screeningOrdered By: Dr. Bailey on 11-28-2022 Thin prep Papanicolaou smear with manual screening 38 U/L 15-37 [facility] Urine blood detectionOrdered By: Dr. Bailey on 11-28-2022 RBC Ql (U) 250 /ul Negative [facility] RBC Ql (U) 10-25 SEEN /hpf 0-5 [facility] Urine clarityOrdered By: Dr. Bailey on 11-28-2022 Clarity (U) Cloudy Clear [facility] Urine color determinationOrd ered By: Dr. Bailey on 11-28-2022 Color (U) Yellow Yellow [facility] Urine glucose detectionOrder ed By: Dr. Bailey on 11-28-2022 Glucose Ql (U) 1000 mg/dl Normal [facility] Urine leukocyte esterase det ection by dipstickOrdered By: Dr. Bailey on 11-28-2022 Leukocyte esterase Test strip Ql (U) 500 /ul Negative [facility] Urine pHOrdered By: Dr. Becca alcantara on 11-28-2022 pH (U) 5.0 [pH] 5.0 - 8.0 [facility] Urine sediment bacteria coun t by microscopy (number/high power field)Ordered By: Dr. Bailey on 11-28-2022 Bacteria LM.HPF (Urine sed) [#/Area] 3 /[HPF] None Seen [facility] Urine specific gravity measu rementOrdered By: Dr. Bailey on 11-28-2022 Specific gravity (U) [Rel density] 1.020 1.002-1.030 [facility] Urobilinogen Auto test strip Ql (U)Ordered By: Dr. Bailey on 11-28-2022 Urobilinogen Ql (U) Normal mg/dl Normal [facility] Absolute lymphocyte countOrd ered By: Dr. Reese on 10-22-2022 Lymphocytes Auto (Unsp spec) [#/Vol] 2.52 10*3/uL 0.83-4.51 [facility] Basophil percentageOrdered B y: Dr. Reese on 10-22-2022 Basophils/100 WBC (Bld) 0.6 % 0-1 [facility] Bilirubin [Mass/Vol] 0.50 mg/dL 0.20-1.00 [facility] Comment on above: For patients on eltr ombopag therapy, use of Dimension [place] TBIL is not recommended. Chloride [Moles/Vol] 98 mmol/L 98-107 [facility] Cholesterol [Mass/Vol] 170 mg/dL <200 [facility] Comment on above: <200 mg/dL Desirable 200-240 mg/dL Borderline >240 mg/dL High Risk Eosinophils/100 WBC (Bld) 2.5 % 0-5 [facility] Glucose [Mass/Vol] 244 mg/dL 74-106 [facility] Comment on above: Glucose result great er than or equal to 200 mg/dLsuggests DIABETES MELLITUS per A.D.A. criteria. Neutrophils (Bld) [#/Vol] 6.7 10*3/uL 2.0-7.7 [facility] Neutrophils/100 WBC (Bld) 65.8 % 47-70 [facility] Potassium [Moles/Vol] 4.4 mmol/L 3.5-5.1 [facility] Protein [Mass/Vol] 7.2 g/dL 6.4-8.2 [facility] Sodium [Moles/Vol] 136 mmol/L 136-145 [facility] Triglyceride [Mass/Vol] 221 mg/dL <199 [facility] Comment on above: The drugs N-Acetylcy steine and Metamizole may falsely depress this assay.Serum Triglycerides Reference Interval Normal <150 mg/dL Borderline high 150 - 199 mg/dL High 200 - 499 mg/dL Very High > or = 500 mg/dL WBC (Bld) [#/Vol] 10.1 10*3/uL 4.4-11.0 [facility] Blood erythrocytes count (nu mber/volume)Ordered By: Dr. Reese on 10-22-2022 RBC (Bld) [#/Vol] 5.32 10*6/uL 4.6-6.2 [facility] Blood hemoglobin measurement (mass/volume)Ordered By: Dr. Reese on 10-22-2022 Hemoglobin (Bld) [Mass/Vol] 14.5 g/dL 13.0-16.5 [facility] Blood lymphocytes/100 leukoc ytesOrdered By: Dr. Reese on 10-22-2022 Lymphocytes/100 WBC (Bld) 24.9 % 19-41 [facility] Blood monocytes/100 leukocyt esOrdered By: Dr. Reese on 10-22-2022 Monocytes/100 WBC (Bld) 5.9 % 0-10 [facility] Blood platelet mean volumeOr dered By: Dr. Reese on 10-22-2022 Platelet mean volume (Bld) [Entitic vol] 11.0 fL 6.2-12.0 [facility] Determination of erythrocyte mean corpuscular volume (MCV)Ordered By: Dr. Reese on 10-22-2022 MCV (RBC) [Entitic vol] 85.2 fL 80-94 [facility] Hematocrit Auto (Bld) [Volum e fraction]Ordered By: Dr. Reese on 10-22-2022 Hematocrit (Bld) [Volume fraction] 45.3 % 40-54 [facility] Iron measurement (mass/mass) Ordered By: Dr. Reese on 10-22-2022 Iron (Unsp spec) [Mass/Mass] 65 ug/dL 65-175 [facility] Laboratory - Chemistry and C hemistry - challengeOrdered By: Dr. Reese on 10-22-2022 ALP [Catalytic activity/Vol] 88 U/L 45-117 [facility] ALT [Catalytic activity/Vol] 36 U/L 16-61 [facility] CO2 [Moles/Vol] 30.0 mmol/L 21.0-32.0 [facility] Globulin (S) [Mass/Vol] 4.1 g/dL 2.2-4.2 [facility] Magnesium [Mass/Vol] 1.7 mg/dL 1.6-2.6 [facility] Urea nitrogen/Creatinine [Mass ratio] 19.2 mg/mg 10-20 [facility] Laboratory - Hematology and Cell countsOrdered By: Dr. Reese on 10-22-2022 Erythrocyte distribution width (RBC) [Entitic vol] 41.1 fL 35.1-43.9 [facility] Erythrocyte distribution width (RBC) [Ratio] 13.5 % 11.6-14.6 [facility] Immature granulocytes/100 WBC (Bld) 0.300 % 0.0-0.9 [facility] Comment on above: IG% - Immature Granu locytes (promyelocytes, myelocytes and metamyelocytes) > 1% indicates that a LEFT SHIFT is Present. MCH (RBC) [Entitic mass] 27.3 pg 27.0-32.0 [facility] Nucleated RBC/100 WBC (Bld) [Ratio] 0 % 0-5 [facility] MCHC Auto (RBC) [Mass/Vol]Or dered By: Dr. Reese on 10-22-2022 MCHC (RBC) [Mass/Vol] 32.0 g/dL 32-36 [facility] No Panel InformationOrdered By: Dr. Reese on 10-22-2022 Estimated GFR (MDRD) Amer 138 mL/min >60 [facility] Comment on above: GFR Calc Estimated GFR (MDRD) Non-Af Amer 114 mL/min >60 [facility] Comment on above: Non- GFR Calc Total Iron Binding Capacity 308 ug/dL 250-450 [facility] Urine Microalbumin/Creatinine Ratio 90.4 mg/g CRE <30 [facility] Platelets bldOrdered By: Dr. Reese on 10-22-2022 Platelets (Bld) [#/Vol] 193 10*3/uL 150-450 [facility] Serum or plasma albumin everardo urement (mass/volume)Ordered By: Dr. Reese on 10-22-2022 Albumin [Mass/Vol] 3.1 g/dL 3.2-5.0 [facility] Serum or plasma albumin/glob ulin mass ratioOrdered By: Dr. Reese on 10-22-2022 Albumin/Globulin [Mass ratio] 0.8 {ratio} 0.9-2.4 [facility] Serum or plasma calcium everardo urement (mass/volume)Ordered By: Dr. Reese on 10-22-2022 Calcium [Mass/Vol] 9.0 mg/dL 8.5-10.1 [facility] Serum or plasma cholesterol in HDL measurement (mass/volume)Ordered By: Dr. Reese on 10-22-2022 Cholesterol in HDL [Mass/Vol] 35 mg/dL >40 [facility] Comment on above: The drugs N-Acetylcy steine and Metamizole may falsely depress this assay. Reference Range HDL <40 mg/dL Low HDL Cholesterol HDL >or= 60 mg/dL High HDL Cholesterol Serum or plasma cholesterol in VLDL measurement (mass/volume)Ordered By: Dr. Reese on 10-22-2022 Cholesterol in VLDL [Mass/Vol] 44 mg/dL 5-40 [facility] Serum or plasma creatinine m easurement (mass/volume)Ordered By: Dr. Reese on 10-22-2022 Creatinine [Mass/Vol] 0.73 mg/dL 0.70-1.30 [facility] Comment on above: The validity of the calculated GFR & GFRAA in patients over 70 years has not been determined. Clinical correlation is essential. Serum or plasma ferritin hilda surement (mass/volume)Ordered By: Dr. Reese on 10-22-2022 Ferritin [Mass/Vol] 60 ng/mL 26-388 [facility] Serum or plasma low density lipoprotein (LDL) cholesterol measurement (mass/volume)Ordered By: Dr. Reese on 10-22-2022 Cholesterol in LDL [Mass/Vol] 91 mg/dL 0-130 [facility] Serum or plasma urea nitroge n measurement (mass/volume)Ordered By: Dr. Reese on 10-22-2022 Urea nitrogen [Mass/Vol] 14 mg/dL 7-18 [facility] Thin prep Papanicolaou smear with manual screeningOrdered By: Dr. Reese on 10-22-2022 Thin prep Papanicolaou smear with manual screening 30 U/L 15-37 [facility] Thin prep Papanicolaou smear with manual screening 8 5-15 [facility] Thin prep Papanicolaou smear with manual screening 91.3 mg/L NO RANGE EST. [facility] Urine creatinine measurement (mass/volume)Ordered By: Dr. Reese on 10-22-2022 Creatinine (U) [Mass/Vol] 101.00 mg/dL NO RANGE EST. [facility] Whole blood hemoglobin A1c/t otal hemoglobin ratio (mass fraction)Ordered By: Dr. Reese on 10-22-2022 HbA1c (Bld) [Mass fraction] 9.9 % 3.8-5.6 [facility] Comment on above: Normal < 5.7 % Predi abetic 5.7 - 6.4 % Diabetic >or= 6.5 % Please note range changes. Absolute lymphocyte countOrd ered By: Dr. Reese on 07-15-2022 Lymphocytes Auto (Unsp spec) [#/Vol] 2.42 10*3/uL 0.83-4.51 [facility] Basophil percentageOrdered B y: Dr. Reese on 07-15-2022 Basophils/100 WBC (Bld) 0.6 % 0-1 [facility] Bilirubin [Mass/Vol] 0.50 mg/dL 0.20-1.00 [facility] Comment on above: For patients on eltr ombopag therapy, use of Dimension [place] TBIL is not recommended. Chloride [Moles/Vol] 100 mmol/L 98-107 [facility] Cholesterol [Mass/Vol] 182 mg/dL <200 [facility] Comment on above: <200 mg/dL Desirable 200-240 mg/dL Borderline >240 mg/dL High Risk Eosinophils/100 WBC (Bld) 1.9 % 0-5 [facility] Glucose [Mass/Vol] 258 mg/dL 74-106 [facility] Comment on above: Glucose result great er than or equal to 200 mg/dLsuggests DIABETES MELLITUS per A.D.A. criteria. Neutrophils (Bld) [#/Vol] 5.3 10*3/uL 2.0-7.7 [facility] Neutrophils/100 WBC (Bld) 62.2 % 47-70 [facility] Potassium [Moles/Vol] 4.3 mmol/L 3.5-5.1 [facility] Protein [Mass/Vol] 6.9 g/dL 6.4-8.2 [facility] Sodium [Moles/Vol] 138 mmol/L 136-145 [facility] Triglyceride [Mass/Vol] 236 mg/dL <199 [facility] Comment on above: The drugs N-Acetylcy steine and Metamizole may falsely depress this assay.Serum Triglycerides Reference Interval Normal <150 mg/dL Borderline high 150 - 199 mg/dL High 200 - 499 mg/dL Very High > or = 500 mg/dL WBC (Bld) [#/Vol] 8.6 10*3/uL 4.4-11.0 [facility] Blood erythrocytes count (nu mber/volume)Ordered By: Dr. Reese on 07-15-2022 RBC (Bld) [#/Vol] 5.37 10*6/uL 4.6-6.2 [facility] Blood hemoglobin measurement (mass/volume)Ordered By: Dr. Reese on 07-15-2022 Hemoglobin (Bld) [Mass/Vol] 14.9 g/dL 13.0-16.5 [facility] Blood lymphocytes/100 leukoc ytesOrdered By: Dr. Reese on 07-15-2022 Lymphocytes/100 WBC (Bld) 28.2 % 19-41 [facility] Blood monocytes/100 leukocyt esOrdered By: Dr. Reese on 07-15-2022 Monocytes/100 WBC (Bld) 6.8 % 0-10 [facility] Blood platelet mean volumeOr dered By: Dr. Reese on 07-15-2022 Platelet mean volume (Bld) [Entitic vol] 10.7 fL 6.2-12.0 [facility] Determination of erythrocyte mean corpuscular volume (MCV)Ordered By: Dr. Reese on 07-15-2022 MCV (RBC) [Entitic vol] 83.8 fL 80-94 [facility] Hematocrit Auto (Bld) [Volum e fraction]Ordered By: Dr. Reese on 07-15-2022 Hematocrit (Bld) [Volume fraction] 45.0 % 40-54 [facility] Iron measurement (mass/mass) Ordered By: Dr. Reese on 07-15-2022 Iron (Unsp spec) [Mass/Mass] 60 ug/dL 65-175 [facility] Laboratory - Chemistry and C hemistry - challengeOrdered By: Dr. Reese on 07-15-2022 ALP [Catalytic activity/Vol] 100 U/L 45-117 [facility] ALT [Catalytic activity/Vol] 27 U/L 16-61 [facility] CO2 [Moles/Vol] 27.0 mmol/L 21.0-32.0 [facility] Globulin (S) [Mass/Vol] 3.8 g/dL 2.2-4.2 [facility] Magnesium [Mass/Vol] 1.7 mg/dL 1.6-2.6 [facility] Urea nitrogen/Creatinine [Mass ratio] 17.3 mg/mg 10-20 [facility] Laboratory - Hematology and Cell countsOrdered By: Dr. Reese on 07-15-2022 Erythrocyte distribution width (RBC) [Entitic vol] 43.1 fL 35.1-43.9 [facility] Erythrocyte distribution width (RBC) [Ratio] 14.4 % 11.6-14.6 [facility] Immature granulocytes/100 WBC (Bld) 0.300 % 0.0-0.9 [facility] Comment on above: IG% - Immature Granu locytes (promyelocytes, myelocytes and metamyelocytes) > 1% indicates that a LEFT SHIFT is Present. MCH (RBC) [Entitic mass] 27.7 pg 27.0-32.0 [facility] Nucleated RBC/100 WBC (Bld) [Ratio] 0 % 0-5 [facility] MCHC Auto (RBC) [Mass/Vol]Or dered By: Dr. Reese on 07-15-2022 MCHC (RBC) [Mass/Vol] 33.1 g/dL 32-36 [facility] No Panel InformationOrdered By: Dr. Reese on 07-15-2022 Estimated GFR (MDRD) Amer 133 mL/min >60 [facility] Comment on above: GFR Calc Estimated GFR (MDRD) Non-Af Amer 110 mL/min >60 [facility] Comment on above: Non- GFR Calc Thyroid Stimulating Hormone (TSH) 1.81 uIU/mL 0.358-3.74 [facility] Total Iron Binding Capacity 349 ug/dL 250-450 [facility] Platelets bldOrdered By: Dr. Reese on 07-15-2022 Platelets (Bld) [#/Vol] 181 10*3/uL 150-450 [facility] Serum or plasma albumin everardo urement (mass/volume)Ordered By: Dr. Reese on 07-15-2022 Albumin [Mass/Vol] 3.1 g/dL 3.2-5.0 [facility] Serum or plasma albumin/glob ulin mass ratioOrdered By: Dr. Reese on 07-15-2022 Albumin/Globulin [Mass ratio] 0.8 {ratio} 0.9-2.4 [facility] Serum or plasma calcium everardo urement (mass/volume)Ordered By: Dr. Reese on 07-15-2022 Calcium [Mass/Vol] 8.7 mg/dL 8.5-10.1 [facility] Serum or plasma cholesterol in HDL measurement (mass/volume)Ordered By: Dr. Reese on 07-15-2022 Cholesterol in HDL [Mass/Vol] 42 mg/dL >40 [facility] Comment on above: The drugs N-Acetylcy steine and Metamizole may falsely depress this assay. Reference Range HDL <40 mg/dL Low HDL Cholesterol HDL >or= 60 mg/dL High HDL Cholesterol Serum or plasma cholesterol in VLDL measurement (mass/volume)Ordered By: Dr. Reese on 07-15-2022 Cholesterol in VLDL [Mass/Vol] 47 mg/dL 5-40 [facility] Serum or plasma creatinine m easurement (mass/volume)Ordered By: Dr. Reese on 07-15-2022 Creatinine [Mass/Vol] 0.75 mg/dL 0.70-1.30 [facility] Comment on above: The validity of the calculated GFR & GFRAA in patients over 70 years has not been determined. Clinical correlation is essential. Serum or plasma ferritin hilda surement (mass/volume)Ordered By: Dr. Reese on 07-15-2022 Ferritin [Mass/Vol] 40 ng/mL 26-388 [facility] Serum or plasma low density lipoprotein (LDL) cholesterol measurement (mass/volume)Ordered By: Dr. Reese on 07-15-2022 Cholesterol in LDL [Mass/Vol] 93 mg/dL 0-130 [facility] Serum or plasma urea nitroge n measurement (mass/volume)Ordered By: Dr. Reese on 07-15-2022 Urea nitrogen [Mass/Vol] 13 mg/dL 7-18 [facility] Thin prep Papanicolaou smear with manual screeningOrdered By: Dr. Reese on 07-15-2022 Thin prep Papanicolaou smear with manual screening 18 U/L 15-37 [facility] Thin prep Papanicolaou smear with manual screening 11 5-15 [facility] Whole blood hemoglobin A1c/t otal hemoglobin ratio (mass fraction)Ordered By: Dr. Reese on 07-15-2022 HbA1c (Bld) [Mass fraction] 10.2 % 3.8-5.6 [facility] Comment on above: Normal < 5.7 % Predi abetic 5.7 - 6.4 % Diabetic >or= 6.5 % Please note range changes. Absolute lymphocyte counton 01-19-2022 Lymphocytes Auto (Unsp spec) [#/Vol] 2.55 10*3/uL 0.83-4.51 [facility] Work Phone: Basophil percentageon 2021 Basophils/100 WBC (Bld) 0.4 % 0-1 [facility] Work Phone: Bilirubin [Mass/Vol] 0.50 mg/dL 0.20-1.00 [facility] Work Phone: Comment on above: For patients on eltr ombopag therapy, use of Dimension [place] TBIL is not recommended. Chloride [Moles/Vol] 101 mmol/L 98-107 [facility] Work Phone: Cholesterol [Mass/Vol] 200 mg/dL <200 [facility] Work Phone: Comment on above: <200 mg/dL Desirable 200-240 mg/dL Borderline >240 mg/dL High Risk Eosinophils/100 WBC (Bld) 1.9 % 0-5 [facility] Work Phone: Glucose [Mass/Vol] 217 mg/dL 74-106 [facility] Work Phone: Comment on above: Glucose result great er than or equal to 200 mg/dLsuggests DIABETES MELLITUS per A.D.A. criteria. Neutrophils (Bld) [#/Vol] 5.2 10*3/uL 2.0-7.7 [facility] Work Phone: [phone] Neutrophils/100 WBC (Bld) 61.2 % 47-70 [facility] Work Phone: Potassium [Moles/Vol] 4.2 mmol/L 3.5-5.1 [facility] Work Phone: Protein [Mass/Vol] 7.6 g/dL 6.4-8.2 [facility] Work Phone: Sodium [Moles/Vol] 137 mmol/L 136-145 [facility] Work Phone: Triglyceride [Mass/Vol] 386 mg/dL <199 [facility] Work Phone: Comment on above: The drugs N-Acetylcy steine and Metamizole may falsely depress this assay.Serum Triglycerides Reference Interval Normal <150 mg/dL Borderline high 150 - 199 mg/dL High 200 - 499 mg/dL Very High > or = 500 mg/dL WBC (Bld) [#/Vol] 8.5 10*3/uL 4.4-11.0 [facility] Work Phone: Blood erythrocytes count (nu mber/volume)on 01-19-2022 RBC (Bld) [#/Vol] 5.14 10*6/uL 4.6-6.2 [facility]: Blood hemoglobin measurement (mass/volume)on 01-19-2022 Hemoglobin (Bld) [Mass/Vol] 13.9 g/dL 13.0-16.5 [facility] Work Phone: Blood lymphocytes/100 leukoc yteson 01-19-2022 Lymphocytes/100 WBC (Bld) 30.0 % 19-41 [facility] Work Phone: Blood monocytes/100 leukocyt eson 01-19-2022 Monocytes/100 WBC (Bld) 6.1 % 0-10 [facility] Work Phone: Blood platelet mean volumeon 01-19-2022 Platelet mean volume (Bld) [Entitic vol] 10.8 fL 6.2-12.0 [facility] Work Phone: Determination of erythrocyte mean corpuscular volume (MCV)on 01-19-2022 MCV (RBC) [Entitic vol] 85.6 fL 80-94 [facility] Work Phone: Hematocrit Auto (Bld) [Volum e fraction]on 01-19-2022 Hematocrit (Bld) [Volume fraction] 44.0 % 40-54 [facility] Work Phone: Iron measurement (mass/mass) on 01-19-2022 Iron (Unsp spec) [Mass/Mass] 62 ug/dL 65-175 [facility] Work Phone: Laboratory - Chemistry and C hemistry - challengeon 01-19-2022 ALP [Catalytic activity/Vol] 83 U/L 45-117 [facility] Work Phone: ALT [Catalytic activity/Vol] 48 U/L 16-61 [facility] Work Phone: CO2 [Moles/Vol] 27.0 mmol/L 21.0-32.0 [facility] Work Phone: Globulin (S) [Mass/Vol] 4.3 g/dL 2.2-4.2 [facility] Work Phone: Magnesium [Mass/Vol] 1.8 mg/dL 1.6-2.6 [facility] Work Phone: Urea nitrogen/Creatinine [Mass ratio] 18.4 mg/mg 10-20 [facility] Work Phone: Laboratory - Hematology and Cell countson 01-19-2022 Erythrocyte distribution width (RBC) [Entitic vol] 43.0 fL 35.1-43.9 [facility] Work Phone: Erythrocyte distribution width (RBC) [Ratio] 14.0 % 11.6-14.6 [facility] Work Phone: Immature granulocytes/100 WBC (Bld) 0.400 % 0.0-0.9 [facility] Work Phone: Comment on above: IG% - Immature Granu locytes (promyelocytes, myelocytes and metamyelocytes) > 1% indicates that a LEFT SHIFT is Present. MCH (RBC) [Entitic mass] 27.0 pg 27.0-32.0 [facility] Work Phone: Nucleated RBC/100 WBC (Bld) [Ratio] 0 % 0-5 [facility] Work Phone: MCHC Auto (RBC) [Mass/Vol]on 01-19-2022 MCHC (RBC) [Mass/Vol] 31.6 g/dL 32-36 [facility] Work Phone: No Panel Informationon 01-19 Estimated GFR (MDRD) Amer 121 mL/min >60 [facility] Work Phone: Comment on above: GFR Calc Estimated GFR (MDRD) Non-Af Amer 100 mL/min >60 [facility] Work Phone: Comment on above: Non- GFR Calc Thyroid Stimulating Hormone (TSH) 1.09 uIU/mL 0.358-3.74 [facility] Work Phone: Total Iron Binding Capacity 351 ug/dL 250-450 [facility] Work Phone: Urine Microalbumin/Creatinine Ratio 281.7 mg/g CRE <30 [facility] Work Phone: Platelets bldon 01-19-2022 Platelets (Bld) [#/Vol] 207 10*3/uL 150-450 [facility] Work Phone: Serum or plasma albumin everardo urement (mass/volume)on 01-19-2022 Albumin [Mass/Vol] 3.3 g/dL 3.2-5.0 [facility] Work Phone: Serum or plasma albumin/glob ulin mass ratioon 01-19-2022 Albumin/Globulin [Mass ratio] 0.8 {ratio} 0.9-2.4 [facility] Work Phone: Serum or plasma calcium everardo urement (mass/volume)on 01-19-2022 Calcium [Mass/Vol] 9.3 mg/dL 8.5-10.1 [facility] Work Phone: Serum or plasma cholesterol in HDL measurement (mass/volume)on 01-19-2022 Cholesterol in HDL [Mass/Vol] 36 mg/dL >40 [facility] Work Phone: Comment on above: The drugs N-Acetylcy steine and Metamizole may falsely depress this assay. Reference Range HDL <40 mg/dL Low HDL Cholesterol HDL >or= 60 mg/dL High HDL Cholesterol Serum or plasma cholesterol in VLDL measurement (mass/volume)on 01-19-2022 Cholesterol in VLDL [Mass/Vol] 77 mg/dL 5-40 [facility] Work Phone: Serum or plasma creatinine m easurement (mass/volume)on 01-19-2022 Creatinine [Mass/Vol] 0.82 mg/dL 0.70-1.30 [facility] Work Phone: Comment on above: The validity of the calculated GFR & GFRAA in patients over 70 years has not been determined. Clinical correlation is essential. Serum or plasma ferritin hilda surement (mass/volume)on 08-02-2022 Ferritin [Mass/Vol] 41 ng/mL 26-388 [facility] Work Phone: Serum or plasma low density lipoprotein (LDL) cholesterol measurement (mass/volume)on 01-19-2022 Cholesterol in LDL [Mass/Vol] 87 mg/dL 0-130 [facility] Work Phone: Serum or plasma urea nitroge n measurement (mass/volume)on 01-19-2022 Urea nitrogen [Mass/Vol] 15 mg/dL 7-18 [facility] Work Phone: Thin prep Papanicolaou smear with manual screeningon 01-19-2022 Thin prep Papanicolaou smear with manual screening 54 U/L 15-37 [facility] Work Phone: Thin prep Papanicolaou smear with manual screening 9 5-15 [facility] Work Phone: Thin prep Papanicolaou smear with manual screening 293.0 mg/L NO RANGE EST. [facility] Work Phone: Urine creatinine measurement (mass/volume)on 01-19-2022 Creatinine (U) [Mass/Vol] 104.00 mg/dL NO RANGE EST. [facility] Work Phone: Whole blood hemoglobin A1c/t otal hemoglobin ratio (mass fraction)on 01-19-2022 HbA1c (Bld) [Mass fraction] 10.3 % 3.8-5.6 [facility] Work Phone: Comment on above: Normal < 5.7 % Predi abetic 5.7 - 6.4 % Diabetic >or= 6.5 % Please note range changes. Absolute lymphocyte counton 09-11-2021 Lymphocytes Auto (Unsp spec) [#/Vol] 2.41 10*3/uL 0.83-4.51 [facility] Work Phone: Basophil percentageon 2021 Basophils/100 WBC (Bld) 0.5 % 0-1 [facility] Work Phone: Bilirubin [Mass/Vol] 0.40 mg/dL 0.20-1.00 [facility] Work Phone: Comment on above: For patients on eltr ombopag therapy, use of Dimension [place] TBIL is not recommended. Chloride [Moles/Vol] 101 mmol/L 98-107 [facility] Work Phone: Cholesterol [Mass/Vol] 174 mg/dL <200 [facility] Work Phone: Comment on above: <200 mg/dL Desirable 200-240 mg/dL Borderline >240 mg/dL High Risk Eosinophils/100 WBC (Bld) 2.2 % 0-5 [facility] Work Phone: Glucose [Mass/Vol] 190 mg/dL 74-106 [facility] Work Phone: Comment on above: Fasting Glucose resu lt greater than or equal to 126 mg/dL suggests DIABETES MELLITUS per A.D.A. criteria. Neutrophils (Bld) [#/Vol] 4.2 10*3/uL 2.0-7.7 [facility] Work Phone: Neutrophils/100 WBC (Bld) 57.2 % 47-70 [facility] Work Phone: Potassium [Moles/Vol] 3.9 mmol/L 3.5-5.1 [facility] Work Phone: Protein [Mass/Vol] 7.4 g/dL 6.4-8.2 [facility] Work Phone: Sodium [Moles/Vol] 137 mmol/L 136-145 [facility] Work Phone: Triglyceride [Mass/Vol] 234 mg/dL [facility] Work Phone: Comment on above: The drugs N-Acetylcy steine and Metamizole may falsely depress this assay.Serum Triglycerides Reference Interval Normal <150 mg/dL Borderline high 150 - 199 mg/dL High 200 - 499 mg/dL Very High > or = 500 mg/dL WBC (Bld) [#/Vol] 7.3 10*3/uL 4.4-11.0 [facility] Work Phone: Blood erythrocytes count (nu mber/volume)on 09-11-2021 RBC (Bld) [#/Vol] 5.16 10*6/uL 4.6-6.2 [facility] Work Phone: Blood hemoglobin measurement (mass/volume)on 09-11-2021 Hemoglobin (Bld) [Mass/Vol] 14.2 g/dL 13.0-16.5 [facility] Work Phone: Blood lymphocytes/100 leukoc yteson 09-11-2021 Lymphocytes/100 WBC (Bld) 33.1 % 19-41 [facility] Work Phone: [phone] Blood monocytes/100 leukocyt eson 09-11-2021 Monocytes/100 WBC (Bld) 6.6 % 0-10 [facility] Work Phone: Blood platelet mean volumeon 09-11-2021 Platelet mean volume (Bld) [Entitic vol] 10.6 fL 6.2-12.0 [facility] Work Phone: Determination of erythrocyte mean corpuscular volume (MCV)on 09-11-2021 MCV (RBC) [Entitic vol] 83.9 fL 80-94 [facility] Work Phone: Hematocrit Auto (Bld) [Volum e fraction]on 09-11-2021 Hematocrit (Bld) [Volume fraction] 43.3 % 40-54 [facility] Work Phone: Iron measurement (mass/mass) on 09-11-2021 Iron (Unsp spec) [Mass/Mass] 62 ug/dL 65-175 [facility] Work Phone: Laboratory - Chemistry and C hemistry - challengeon 09-11-2021 ALP [Catalytic activity/Vol] 95 U/L 45-117 [facility] Work Phone: ALT [Catalytic activity/Vol] 29 U/L 16-61 [facility] Work Phone: CO2 [Moles/Vol] 29.0 mmol/L 21.0-32.0 [facility] Work Phone: Globulin (S) [Mass/Vol] 4.1 g/dL 2.2-4.2 [facility] Work Phone: Magnesium [Mass/Vol] 1.8 mg/dL 1.6-2.6 [facility] Work Phone: Urea nitrogen/Creatinine [Mass ratio] 25.8 mg/mg 10-20 [facility] Work Phone: Laboratory - Hematology and Cell countson 09-11-2021 Erythrocyte distribution width (RBC) [Entitic vol] 42.2 fL 35.1-43.9 [facility] Work Phone: Erythrocyte distribution width (RBC) [Ratio] 13.8 % 11.6-14.6 [facility] Work Phone: Immature granulocytes/100 WBC (Bld) 0.400 % 0.0-0.9 [facility] Work Phone: Comment on above: IG% - Immature Granu locytes (promyelocytes, myelocytes and metamyelocytes) > 1% indicates that a LEFT SHIFT is Present. MCH (RBC) [Entitic mass] 27.5 pg 27.0-32.0 [facility] Work Phone: Nucleated RBC/100 WBC (Bld) [Ratio] 0 % 0-5 [facility] Work Phone: MCHC Auto (RBC) [Mass/Vol]on 09-11-2021 MCHC (RBC) [Mass/Vol] 32.8 g/dL 32-36 [facility] Work Phone: No Panel Informationon 09-11 Estimated GFR (MDRD) Amer 155 mL/min >60 [facility] Work Phone: Comment on above: GFR Calc Estimated GFR (MDRD) Non-Af Amer 128 mL/min >60 [facility] Work Phone: Comment on above: Non- GFR Calc Platelets bldon 09-11-2021 Platelets (Bld) [#/Vol] 174 10*3/uL 150-450 [facility] Work Phone: Serum or plasma albumin everardo urement (mass/volume)on 09-11-2021 Albumin [Mass/Vol] 3.3 g/dL 3.2-5.0 [facility] Work Phone: Serum or plasma albumin/glob ulin mass ratioon 09-11-2021 Albumin/Globulin [Mass ratio] 0.8 {ratio} 0.9-2.4 [facility] Work Phone: Serum or plasma calcium everardo urement (mass/volume)on 09-11-2021 Calcium [Mass/Vol] 8.5 mg/dL 8.5-10.1 [facility] Work Phone: Serum or plasma cholesterol in HDL measurement (mass/volume)on 09-11-2021 Cholesterol in HDL [Mass/Vol] 39 mg/dL [facility] Work Phone: Comment on above: The drugs N-Acetylcy steine and Metamizole may falsely depress this assay. Reference Range HDL <40 mg/dL Low HDL Cholesterol HDL >or= 60 mg/dL High HDL Cholesterol Serum or plasma cholesterol in VLDL measurement (mass/volume)on 09-11-2021 Cholesterol in VLDL [Mass/Vol] 47 mg/dL 5-40 [facility] Work Phone: Serum or plasma creatinine m easurement (mass/volume)on 09-11-2021 Creatinine [Mass/Vol] 0.66 mg/dL 0.70-1.30 [facility] Work Phone: Comment on above: The validity of the calculated GFR & GFRAA in patients over 70 years has not been determined. Clinical correlation is essential. Serum or plasma ferritin hilda surement (mass/volume)on 09-11-2021 Ferritin [Mass/Vol] 28 ng/mL 26-388 [facility] Work Phone: Serum or plasma low density lipoprotein (LDL) cholesterol measurement (mass/volume)on 09-11-2021 Cholesterol in LDL [Mass/Vol] 88 mg/dL 0-130 [facility] Work Phone: Serum or plasma urea nitroge n measurement (mass/volume)on 09-11-2021 Urea nitrogen [Mass/Vol] 17 mg/dL 7-18 [facility] Work Phone: Thin prep Papanicolaou smear with manual screeningon 09-11-2021 Thin prep Papanicolaou smear with manual screening 23 U/L 15-37 [facility] Work Phone: Thin prep Papanicolaou smear with manual screening 7 5-15 [facility] Work Phone: Whole blood hemoglobin A1c/t otal hemoglobin ratio (mass fraction)on 09-11-2021 HbA1c (Bld) [Mass fraction] 9.5 % 3.8-5.6 [facility] Work Phone: Comment on above: Normal < 5.7 % Predi abetic 5.7 - 6.4 % Diabetic >or= 6.5 % Please note range changes. Brain Natri. Peptideon 02-10 Natriuretic peptide B mass conc (Bld) Normal [facility] Comment on above: Result Comment: Pro- BNP Reference Range:Rule Out: <300[place]: Age <50 300-450 Age 50-75 300-900 Age >75 300-1800Usually represents mild to moderate HF but other cardiopulmonary causes cannot be ruled out.Rule In: Age <50 >450 Age 50-75 >900 Age >75 >1800 Performed By: #### C DP, BNP, CP, TROPI ####[address] [place] [address] Natriuretic peptide B mass conc (Bld) 48 pg/mL Normal <300 [facility] Comment on above: Result Comment: Pro- BNP results cannot be compared to BNP results. Performed By: #### C DP, BNP, CP, TROPI ####[address] [place] [address] CBC with Diffon 02-10-2018 Abs. Basophil 0.00 k/uL Normal 0.0-0.2 [facility] Comment on above: Performed By: #### C DP, BNP, CP, TROPI ####[facility] [place] [address] Abs.Neutrophil (Seg) 5.70 k/uL Normal 2.1-6.5 [facility] Comment on above: Performed By: #### C DP, BNP, CP, TROPI ####[place] [address] [place] [address] Auto Diff Performed YES Normal [facility] Comment on above: Performed By: #### C DP, BNP, CP, TROPI ####[address] [place] [address] Basophils/100 WBC Auto (Bld) 0 % Normal 0-2 [facility] Comment on above: Performed By: #### C DP, BNP, CP, TROPI ####[place] [address] [place] [address] Eosinophils Auto #/vol (Bld) 0.20 10*3/uL Normal 0.0-0.4 [facility] Comment on above: Performed By: #### C DP, BNP, CP, TROPI ####[place] [address] [place] [address] Eosinophils/100 WBC Auto (Bld) 2 % Normal 0-5 [facility] Comment on above: Performed By: #### C DP, BNP, CP, TROPI ####[place] [address] [place] [address] Erythrocyte distribution width Auto Ratio (RBC) 14.9 % Normal 12.1-15.2 [facility] Comment on above: Performed By: #### C DP, BNP, CP, TROPI ####[address] [place] [address] Hematocrit Auto Volume Fraction (Bld) 40.1 % Low 41-53 [facility] Comment on above: Performed By: #### C DP, BNP, CP, TROPI ####[facility] [place] [address] Hemoglobin mass conc (Bld) 13.4 g/dL Low 13.5-17.5 [facility] Comment on above: Performed By: #### C DP, BNP, CP, TROPI ####[facility] [place] [address] Lymphocytes Auto #/vol (Bld) 1.80 10*3/uL Normal 1.0-4.8 [facility] Comment on above: Performed By: #### C DP, BNP, CP, TROPI ####[address] [place] [address] Lymphocytes/100 WBC Auto (Bld) 22 % Normal 13-44 [facility] Comment on above: Performed By: #### C DP, BNP, CP, TROPI ####[address] [facility] [place] [address] MCH Auto Entitic mass (RBC) 28.0 pg Normal 26-34 [facility] Comment on above: Performed By: #### C DP, BNP, CP, TROPI ####[facility] [place] [address] MCHC Auto mass conc (RBC) 33.3 g/dL Normal 31-37 [facility] Comment on above: Performed By: #### C DP, BNP, CP, TROPI ####[facility] [place] [address] MCV Auto Entitic volume (RBC) 84.0 fL Normal 80-100 [facility] Comment on above: Performed By: #### C DP, BNP, CP, TROPI ####[facility] [place] [address] Monocytes Auto #/vol (Bld) 0.50 10*3/uL Normal 0.0-1.0 [facility] Comment on above: Performed By: #### C DP, BNP, CP, TROPI ####[place] [address] [place] [address] Monocytes/100 WBC Auto (Bld) 6 % Normal 5-9 [facility] Comment on above: Performed By: #### C DP, BNP, CP, TROPI ####[place] [address] [place] [address] Neutrophil (Seg) 70 % Normal 39-75 [facility] Comment on above: Performed By: #### C DP, BNP, CP, TROPI ####[place] [address] [place] [address] Platelets Auto #/vol (Bld) 223 10*3/uL Normal 140-450 [facility] Comment on above: Performed By: #### C DP, BNP, CP, TROPI ####[place] [address] [place] [address] RBC Auto #/vol (Bld) 4.77 10*6/uL Normal 4.5-5.9 [facility] Comment on above: Performed By: #### C DP, BNP, CP, TROPI ####[address] [place] [address] WBC Auto #/vol (Bld) 8.3 10*3/uL Normal 3.5-11.0 [facility] Comment on above: Performed By: #### C DP, BNP, CP, TROPI ####[place] [address] [place] [address] Abs.Imm.Granulocyte NOT REPORTED Normal 0.00-0.30 [facility] Comment on above: Performed By: #### C DP, BNP, CP, TROPI ####[place] [address] [place] [address] Immature granulocytes #/vol (Bld) NOT REPORTED Normal 0 [facility] Comment on above: Performed By: #### C DP, BNP, CP, TROPI ####[facility] [place] [address] NRBC Automated NOT REPORTED Normal [facility] Comment on above: Performed By: #### C DP, BNP, CP, TROPI ####[facility] [place] [address] Platelet mean volume Auto Entitic volume (Bld) NOT REPORTED Normal 6.0-12.0 [facility] Comment on above: Performed By: #### C DP, BNP, CP, TROPI ####[facility] [place] [address] Platelets Auto #/vol (Bld) NOT REPORTED Normal [facility] Comment on above: Performed By: #### C DP, BNP, CP, TROPI ####[facility] [place] [address] RBC morphology finding Nom (Bld) NOT REPORTED Normal [facility] Comment on above: Performed By: #### C DP, BNP, CP, TROPI ####[facility] [place] [address] WBC Morphology NOT REPORTED Normal [facility] Comment on above: Performed By: #### C DP, BNP, CP, TROPI ####[facility] [id number] Comp Metabolic Profon 2017 (cont.) Normal [facility] Comment on above: Result Comment: Aver age GFR for 60-69 years old: 85 mL/min/1.73sq mChronic Kidney Disease: <60 mL/min/1.73sq mKidney failure: <15 mL/min/1.73sq meGFR calculated using average adult body mass. Additional eGFR calculator available at:http://www.OnVantage.com/multiple_crcl_2011.htm Performed By: #### C DP, BNP, CP, TROPI ####[address] [place] [address] Albumin mass conc 3.6 g/dL Normal 3.5-5.2 [facility] Comment on above: Performed By: #### C DP, BNP, CP, TROPI ####[address] [place] [address] Alkaline Phos 89 U/L Normal 40-129 [facility] Comment on above: Performed By: #### C DP, BNP, CP, TROPI ####[address] [place] [address] ALT enzyme act/vol 18 U/L Normal 5-41 [facility] Comment on above: Performed By: #### C DP, BNP, CP, TROPI ####[address] [place] [address] Anion gap 3 molar conc 13 mmol/L Normal 9-17 [facility] Comment on above: Performed By: #### C DP, BNP, CP, TROPI ####[address] [place] [address] AST enzyme act/vol 19 U/L Normal <40 [facility] Comment on above: Performed By: #### C DP, BNP, CP, TROPI ####[address] [place] [address] Bilirubin Ql (U) 0.36 mg/dL Normal 0.30-1.20 [facility] Comment on above: Performed By: #### C DP, BNP, CP, TROPI ####[address] [place] [address] BUN/CRE Ratio 19 Normal 9-20 [facility] Comment on above: Performed By: #### C DP, BNP, CP, TROPI ####[facility] [place] [address] Calcium mass conc 9.8 mg/dL Normal 8.6-10.4 [facility] Comment on above: Performed By: #### C DP, BNP, CP, TROPI ####[facility] [place] [address] Chloride molar conc 97 mmol/L Low 98-107 [facility] Comment on above: Performed By: #### C DP, BNP, CP, TROPI ####[place] [address] [place] [address] CO2 molar conc 27 mmol/L Normal 20-31 [facility] Comment on above: Performed By: #### C DP, BNP, CP, TROPI ####[place] [address] [place] [address] Creatinine mass conc 0.67 mg/dL Low 0.70-1.20 [facility] Comment on above: Performed By: #### C DP, BNP, CP, TROPI ####[place] [address] [place] [address] GFR, Amer >60 Normal >60 [facility] Comment on above: Performed By: #### C DP, BNP, CP, TROPI ####[place] [address] [place] [address] GFR,non Amer >60 Normal >60 [facility] Comment on above: Performed By: #### C DP, BNP, CP, TROPI ####[place] [address] [place] [address] Glucose mass conc 152 mg/dL High 70-99 [facility] Comment on above: Performed By: #### C DP, BNP, CP, TROPI ####[place] [address] [place] [address] Potassium molar conc 3.9 mmol/L Normal 3.7-5.3 [facility] Comment on above: Performed By: #### C DP, BNP, CP, TROPI ####[facility] [place] [address] Protein mass conc 6.8 g/dL Normal 6.4-8.3 [facility] Comment on above: Performed By: #### C DP, BNP, CP, TROPI ####[facility] [phone] Sodium molar conc 137 mmol/L Normal 135-144 [facility] Comment on above: Performed By: #### C DP, BNP, CP, TROPI ####[facility] [place] [address](222) Urea nitrogen mass conc 13 mg/dL Normal 8-23 M [facility] [place] [facility] Comment on above: Performed By: #### C DP, BNP, CP, TROPI ####[facility] [phone](465) Albumin/Globulin mass ratio NOT REPORTED Normal 1.0-2.5 [facility] Comment on above: Performed By: #### C DP, BNP, CP, TROPI ####[facility] [facility] [place] [address] Staging: NOT REPORTED Normal [facility] Comment on above: Performed By: #### C DP, BNP, CP, TROPI ####[facility] [phone] ED Noteon 02-10-2018 HIM IP Note OR Cylindrical Mixer Normal [facility] HIM IP Note OR Cylindrical Mixer Normal [facility] HIM IP Note OR Cylindrical Mixer Normal [facility] ED Provider Noteon 8 HIM IP Note OR Cylindrical Mixer Normal [facility] Troponinon 02-10-2018 Troponin I.cardiac mass conc Normal [facility] Comment on above: Result Comment: Refe rence [...] By: #### C DP, BNP, CP, TROPI ####[place] [address] [place] [address] Troponin T.cardiac mass conc ug/L Normal <0.03 [facility] Comment on above: Result Comment: Trop onin T results cannot be compared to Troponin-I results. Performed By: #### C DP, BNP, CP, TROPI ####[address] [place] [address] Urinalysis, Routineon 2017 Acetaminophen mass conc Negative Normal NEG M [facility] Comment on above: Performed By: #### U A ####[address] [place] [address] Bilirubin, SemiQt,Ur Negative Normal NEG [facility] Comment on above: Performed By: #### U A ####[address] [place] [address] Color YELLOW Normal YEL [facility] Comment on above: Performed By: #### U A ####[address] [place] [address] Comment Normal [facility] Comment on above: Performed By: #### U A ####[address] [place] [address] Glucose,Semi-qnt,Ur Negative Normal NEG [facility] Comment on above: Performed By: #### U A ####[address] [place] [address] Hemoglobin, Ur Negative Normal NEG [facility] Comment on above: Performed By: #### U A ####[facility] [place] [address] Leuckocyte Esterase Negative Normal NEG [facility] Comment on above: Performed By: #### U A ####[facility] [place] [address] Nitrite,Ur Negative Normal NEG [facility] Comment on above: Performed By: #### U A ####[facility] [place] [address] PH,Ur 6.5 Normal 5.0-8.0 [facility] Comment on above: Performed By: #### U A ####[place] [address] [place] [address] Protein mass conc Negative Normal NEG [facility] Comment on above: Performed By: #### U A ####[facility] [place] [address] Spec. [place],Ur 1.015 Normal 1.005-1.030 [facility] Comment on above: Performed By: #### U A ####[facility] [place] [address] Turbidity CLEAR Normal CLEAR [facility] Comment on above: Performed By: #### U A ####[facility] [place] [address] Urobilinogen,Ur Normal Normal NORM [facility] Comment on above: Performed By: #### U A ####[place] [address] [phone] BMPon 11-24-2017 Anion gap 6 mmol/L Normal 5-16 [facility] [place] Comment on above: Performed By: #### L 500.24556, L500.96459, L500.22285 ####[facility] [id number] [place], [place] [address]Tm# [phone] BUN/Creatinine Ratio 20 mg/mg Normal 15-24 [facility] Comment on above: Performed By: #### L 500.88768, L500.35470, L500.50986 ####[facility] [id number] [place], [place] [address]Te# [phone] Calcium 9.1 mg/dL Normal 8.5-10.1 [facility] Comment on above: Performed By: #### L 500.92188, L500.75951, L500.75014 ####[facility] [id number] [place], [place] [address]Za# [phone] Chloride 104 mmol/L Normal 98-107 [facility] Comment on above: Performed By: #### L 500.42017, L500.79946, L500.18723 ####[facility] [id number] [place] [address]Xz# [phone] CO2 29 mmol/L Normal 21-32 [facility] Comment on above: Performed By: #### L 500.46383, L500.58867, L500.45193 ####[facility] [id number] [place], [place] [address]Rh# [phone] Creatinine 0.612 mg/dL Low 0.670-1.170 [facility] Comment on above: Result Comment: Lelia ents receiving either N-Acetylcysteine (NAC) orMetamizole prior to venipuncture, may have falsely depressedresults. Performed By: #### L 500.87521, L500.30452, L500.74841 ####[facility] [id number] [place], [place] [address]Ro# [phone] Glucose mass conc 148 mg/dL High 70-100 [facility] Comment on above: Result Comment: 70-1 00- Normal Fasting; 100-125 Impaired Fasting; greaterthan 126 on more than one result- Diabetes. ADA guidelines.Results may be falsely elevated after the administration ofSulfapyridine.Results may be falsely depressed after the administration ofSulfasalazine. Performed By: #### L 500.99606, L500.00107, L500.05899 ####[facility] [id number] [place], [place] [address]Ke# [phone] Potassium molar conc 4.1 mmol/L Normal 3.5-5.1 [facility] Comment on above: Performed By: #### L 500.14652, L500.86365, L500.33528 ####[facility] [id number] [place], [place] [address]At# [phone] Sodium 139 mmol/L Normal 136-145 [facility] Comment on above: Performed By: #### L 500.16426, L500.13634, L500.26550 ####[facility] [id number] [place], [place] [address]Zs# [phone] Urea nitrogen 12 mg/dL Normal 7-26 [facility] Comment on above: Performed By: #### L 500.79945, L500.48268, L500.19448 ####[facility] [id number] [place], [place] [address]Bz# [phone] GFR ESTon 11-24-2017 IF AMER Greater than 60 Normal [facility] Comment on above: Performed By: #### L 500.19629, L500.03825, L500.30955 ####[facility] [id number] [place], [place] [address]Rv# [phone] IF non-AFR AMER Greater than 60 Normal [facility] Comment on above: Performed By: #### L 500.72565, L500.97147, L500.18581 ####[facility] [id number] [place], [place] [address]Ts# [phone] HGB A1C GLYCOHBon 11-24-2017 Hemoglobin A1c/Hemoglobin.total mass fraction (Bld) 6.0 % Normal 4.3-6.0 [facility] Comment on above: Performed By: #### L 550.20009 ####[facility] [id number] [place], [place] [address]Ql# [phone] LIPIDon 11-24-2017 Cholesterol 179 mg/dL Normal 0-199 [facility] Comment on above: Performed By: #### L 500.72520, L500.33388, L500.63620 ####[facility] [id number] [place], [place] [address]Eh# [phone] HDL Cholesterol 41 mg/dL Normal [place] 40 [facility] Comment on above: Result Comment: Lelia ents receiving Metamizole prior to venipuncture, mayhave falsely depressed results. Performed By: #### L 500.76572, L500.44613, L500.58874 ####[facility] [address] [place], [place] [address]Ps# [phone] LDL Cholesterol 105 MG/DL Normal 0-129 [facility] Comment on above: Result Comment: ___C HOLESTEROL/HDL RATIO RISK___ CHD RISK = Total CHOL LDL HDL (CHOL/HDL) Recommended <200 <130 >35 <3.4 ----Borderline 200-239 130-159 3.4-4.99 --------High >240 >160 >5.0 ---- Performed By: #### L 500.39487, L500.95011, L500.16847 ####[facility] [id number] [place], [place] [address]Zw# [phone] Triglyceride 165 mg/dL High 30-149 [facility] [place] Comment on above: Result Comment: Lelia ents receiving either N-Acetylcysteine (NAC) orMetamizole prior to venipuncture, may have falsely depressedresults. Performed By: #### L 500.05260, L500.46098, L500.79995 ####[facility] [id number] [place], [place] [address]Ij# [phone] Cat 10-03-2017 CNPN Telephone (HEMDAVIDSON) LANI [facility]AGOZA ([id number]) 1955 [facility]/17 MACHO RASHID During your visit today, we recorded the following information about you:Dorinda Car LPN 10/03/2017 5:11 PM SignedPatient contacted office and [...] come any other time d/t working in [place].Dorinda Rashid MD 10/04/2017 8:28 AM SignedYES. Get his labs before visit. If his M protein is unchanged, then he couldsee JACEY.Melaarmando Jorge Rashid PSR 10/04/2017 1:09 PM SignedMessage left for patient to contact office.Patient is rescheduled.Please document and close once message is relayed.Joyce Kaufman RN 10/04/2017 2:42 PM SignedPatient returned call and given provider's message below with verbalizedunderstanodilon g.Allergies As of Date: 10/03/2017 Noted Allergy ReactionAMPICILLIN 03/16/2017 4 - HivesPENICILLINS 03/16/2017 16 - UnknownDate Reviewed: 04/05/2017Reviewed by: Wanda (Rn) ZEN Greenberg - Fully AssessedReason for Visit: Patient Question [1588]Prescriptions as of 10/03/2017 Sig: ASPIRIN 81 MG [...] Status:Closed by Joyce KAUFMAN RN on 10/04/17 [facility] CNOVSPon 04-05-2017 OVS Visit (SP) Office (HEMAWS) LANI ZARAGOZA ([id number]) 1955 [facility] Time Provider Wioiswsgiw31/17/17 4:00 PM MACHO RASHID During your visit today, we recorded the following information about you: Temperature Pulse Blood pressure Weight 98.9 degrees 74/minute 136/63 181.7 kgLapman MD Ann 04/06/2017 7:56 AM SignedPATIENT NAME: Lani Zaragoza.CLINIC NO: [id number].ATTENDING PHYSICIAN: Macho Rashid MD.DATE OF SERVICE:04/05/2017.?DI AGNOSIS: Monoclonal gammopathy of [...] on his arms. 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 No [...] DATA:?Component Latest Ref Rng ANDamp; Units 03/16/2017WBC, [place] 3.70 - 11.00 k/uL 8.77RBC, [place] 4.20 - 6.00 m/uL 4.79Hemoglobin, [place] 13.0 - 17.0 g/dL 13.2Hematocrit, [place] 39.0 - 51.0 % 39.9MCV, [place] 80.0 - 100.0 fL 83.3MCH, [place] 26.0 - 34.0 pg 27.6MCHC, [place] 30.5 - 36.0 g/dL 33.1RDW, [place] 11.5 - 15.0 % 14.7Platelet Cnt, [place] 150 - 400 k/uL 195MPV, [place] 9.0 [...] 100mg once daily.-Repeat Skeletal survey if indicated.Macho Rashid, [facility]: Dr. Jing BeachReferring Provider: MACHO RASHID [[id number]]Allergies As of Date: 04/05/2017 Noted Allergy ReactionAMPICILLIN 03/16/2017 4 - HivesPENICILLINS 03/16/2017 16 - UnknownDate Reviewed: 04/05/2017Reviewed by: Wanda (Rn) ZEN Greenberg - Fully AssessedReason for Visit: Established Patient [175]Primary Visit Diagnosis:MGUS (monoclonal gammopathy of unknown significance) [D47.2] Other Visit Diagnoses:Polyneuropat hy in other diseases classified elsewhere ([facility]) [G63] Anemia, unspecified type [D64.9] Type 2 diabetes mellitus with diabetic polyneuropathy, without long-term current use of insulin ([facility]) [E11.42]Level of Service: EST PATIENT VISIT LEVEL 3 [32002]Disposition: Return in about 6 months (around 10/04/2017).Follow-up [...] (morbid obesity) *INVALID FOR*Encounter Status:Closed by MACHO RASHID MD on 04/06/17 [facility] PRO[facility]on 04-05-2017 PROGRESS HNO ID: [id number]: Macho Ferreirae: (none)Author Type: PhysicianType: Progress NotesFiled: 04/06/2017 7:56 AMNote Text:PATIENT NAME: Lani Zaragoza.CLINIC NO: [id number].ATTENDING PHYSICIAN: Macho Rashid MD.DATE OF SERVICE:04/05/2017.?DI AGNOSIS: Monoclonal gammopathy of [...] on his arms. 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 No [...] DATA:?Component Latest Ref Rng AND Units 03/16/2017WBC, [place] 3.70 - 11.00 k/uL 8.77RBC, [place] 4.20 - 6.00 m/uL 4.79Hemoglobin, [place] 13.0 - 17.0 g/dL 13.2Hematocrit, [place] 39.0 - 51.0 % 39.9MCV, [place] 80.0 - 100.0 fL 83.3MCH, [place] 26.0 - 34.0 pg 27.6MCHC, [place] 30.5 - 36.0 g/dL 33.1RDW, [place] 11.5 - 15.0 % 14.7Platelet Cnt, [place] 150 - 400 k/uL 195MPV, [place] 9.0 [...] 100mg once daily.-Repeat Skeletal survey if indicated.Macho Rashid [facility]: Dr. Jing [place] Normal [facility] PROGRESSon 03-17-2017 PROGRESS HNO ID: [id number]: Lamar Sage (Rt) Rand Moran: (none)Author Type: TechnicianType: Progress NotesFiled: 03/17/2017 3:04 PMNote Text: Radiology Service Progress NotePATIENT NAME: Lani ZaragozaMRN: [id number] OF SERVICE: March 17, 2017TIME: 1:58 PMPATIENT IDENTITY VERIFICATION COMPLETED USING TWO (2) METHODS: Patientconfirmed name verbally and Date of .PATIENT GENDER DATA: MalePATIENT RELEVANT IMPLANT DATA REVIEWED: Not ApplicableRADIOLOGY DEPARTMENT: General X-ray: Exam(s) Completed: Bone SurveyPERIPHERAL IV DATA: Not applicableSIGNED BY: REJI Parryept2016 1:58 PM Normal [facility] Period and Volumeon 03-17-20 17 Period 24 hr Normal [facility] Comment on above: Performed By: #### R ETIC, PTT, IRON, NTBNP, FERR, KLFRS, MMA ####[facility] [address] [place] [place], [place] [phone]#### VITB6 ####[facility] [address] [place], [place] [phone] Volume 1073 mL Normal [facility] Comment on above: Performed By: #### R ETIC, PTT, IRON, NTBNP, FERR, KLFRS, MMA ####[facility] [address] [place], [place] [phone]#### VITB6 ####[facility] [address] [place], [place] [phone] Protein Urine 24 Hron 2016 Protein Urine 0.11 gm/24 Hr Normal <0.16 [facility] Comment on above: Performed By: #### R ETIC, PTT, IRON, NTBNP, FERR, KLFRS, MMA ####[facility] [place], [place] [phone]#### VITB6 ####[facility] [address] [place], [place] [phone] XR BONE SURVEY ROUTINEon XR BONE SURVEY [...] study. No focal lytic lesions, no pathologic fracture.Cylindrical Mixer ist: PSCB Transcribe Date/Time: Mar 20 2017 10:12PDictated by : LIZETH MARTINS MDThis examination was interpreted and the report reviewed and electronically signed by: LIZETH MARTINS MD on Mar 20 2017 10:24PM [id number] Normal [facility] APTTon 03-16-2017 aPTT 25.6 s Normal 23.0-32.4 [facility] Comment on above: Result Comment: Unfr [...] laboratory APTT reagent in use throughout the [facility]. Performed By: #### R ETIC, PTT, IRON, NTBNP, FERR, KLFRS, MMA ####[facility] [place], [place] [phone]#### VITB6 ####[facility] [address] [place], [place] [phone] CNOVSPon 03-16-2017 CNOVSP Visit (SP) Office (HEMAWS) LANI ZARAGOZA ([id number]) 1955 MDate Time Provider Department03/16/17 9:10 AM MACHO RASHID During your visit today, we recorded the following information about you: Temperature Pulse Blood pressure Weight 98.1 degrees 93/minute 134/74 180.5 kg Height 1.727 mPadontae Browning LPN, LPN 03/16/2017 9:46 AM SignedNew patient, discuss recent lab results.. DX: Monoclonal gammPamela Yaritza Arredondo MD 03/17/2017 7:43 AM SignedHematology and Medical OncologyPATIENT NAME: Lani Zaragoza.CLINIC NO: [id number].ATTENDING PHYSICIAN: Macho Rashid MD.DATE OF SERVICE:03/16/2017.DIAG NOSIS: Monoclonal gammopathy of [...] on his arms. 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 No [...] change in bowel habits, rectal bleeding or melena.MEDICATIONS:Patrick escobar Outpatient Prescriptions:amLODIPi ne (NORVASC) 5 mg tablet [...] DATA:Component Latest Ref Rng ANDamp; Units 03/16/2017WBC, Shiva 3.70 - 11.00 k/uL 8.77RBC, Shiva 4.20 - 6.00 m/uL 4.79Hemoglobin, [place] 13.0 - 17.0 g/dL 13.2Hematocrit, [place] 39.0 - 51.0 % 39.9MCV, [place] 80.0 - 100.0 fL 83.3MCH, Shiva 26.0 - 34.0 pg 27.6MCHC, [place] 30.5 - 36.0 g/dL 33.1RDW, Shiva 11.5 - 15.0 % 14.7Platelet Cnt, Shiva 150 - 400 k/uL 195MPV, Shiva 9.0 [...] amyloidosis: 24-hour urine protein,serum and urine [place]/Lambda light chains. PTT (factor X) because of increasedbruising. 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 Dillan BeachRefjacqueline Provider: JING DAWKINS [[id number]]Allergies As of Date: 03/16/2017 Noted Allergy ReactionAMPICILLIN 03/16/2017 4 - HivesPENICILLINS 03/16/2017 16 - UnknownDate Reviewed: Never ReviewedReason for Visit: New Patient [172]Primary Visit Diagnosis:MGUS (monoclonal gammopathy of unknown significance) [D47.2] Other Visit Diagnoses:Polyneuropat hy in other diseases classified elsewhere ([facility]) [G63] Anemia, unspecified type [D64.9] Easy bruising [R23.8] Type 2 diabetes mellitus with diabetic polyneuropathy, without long-term current use of insulin ([facility]) [E11.42] Obesity, Class III, BMI 40-49.9 (morbid obesity) ([facility]) [E66.01]Order(s):XR BONE SURVEY ROUTINE [8866061] Order #: [id number] FUTURE FERRITIN BLD [SQFERR] Order #: [id number] FUTURE METHYLMALONIC ACID [SQMMA] Order #: [id number] FUTURE RETIC COUNT [SQRETIC] Order #: [id number] FUTURE VITAMIN B6/PYRIDOXIN [SQVITB6] Order #: [id number] FUTURE IRON + TIBC [SQIRON] Order #: [id number] FUTURE PROTEIN 24 HR URINE [SQUTP24] Order #: [id number] FUTURE KAPPA/MAYA,FREE,SER [SQKLFRS] Order #: [id number] FUTURE KAPPA, FREE, URINE [SQUFKAPP] Order #: [id number] FUTURE LAMBDA, FREE, URINE [SQUFLAMB] Order #: [id number] FUTURE ACTIVATED PTT [SQPTT] Order #: [id number] FUTURE NT PRO BNP [SQNTBNP] Order #: [id number] FUTURELevel of Service: NEW PATIENT VISIT LEVEL 5 [[id number]]Disposition: Return in about 2 weeks (around 03/30/2017).Follow-up [...] 40 (morbid obesity) *INVALID FOR*Visit Notes:>> Aimee Browning LPN TueMar 16, 2017 8:48 AM Status:SignedNew patient, discuss recent lab results.. DX: Monoclonal gammPamela HUMA Arredondoncounter Status:Closed by MACHO RASHID MD on 03/17/17 Normal [facility] Ferritinon 03-16-2017 Ferritin 84.0 ng/mL Normal 30.3-565.7 [facility] Comment on above: Performed By: #### R ETIC, PTT, IRON, NTBNP, FERR, KLFRS, MMA ####[facility] [address] [place], [place] [phone]#### VITB6 ####[address] [phone] Iron and TIBCon 03-16-2017 Iron 77 ug/dL Normal 41-186 [facility] Comment on above: Performed By: #### R ETIC, PTT, IRON, NTBNP, FERR, KLFRS, MMA ####[facility] [address] [place], [place] [phone]#### VITB6 ####[facility] [address] [place], [place] [phone] TIBC 329 ug/dL Normal 232-386 [facility] Comment on above: Performed By: #### R ETIC, PTT, IRON, NTBNP, FERR, KLFRS, MMA ####[place] [address] [place] [place], [place] [phone]#### VITB6 ####[facility] [address] [phone] Transferrin Saturatn 23 % Normal 15-57 [facility] Comment on above: Performed By: #### R ETIC, PTT, IRON, NTBNP, FERR, KLFRS, MMA ####[address] [phone]#### VITB6 ####[facility] [address] [phone] [place], Free, Urineon 017 [place], Free, Urine 43.90 mg/L High 1.35-24.19 [facility] Comment on above: Result Comment: (NOT E)Test Performed by Brook Mackay,[facility],[address] [place] [address] [id number] Beach M.D., Ph.D., Director of [phone], CLIA [id number] [place],Free,Seron 2016 K/L Ratio, Serum 1.96 High 0.26-1.65 [facility] Comment on above: Performed By: #### R ETIC, PTT, IRON, NTBNP, FERR, KLFRS, MMA ####[place] [address] [place], [place] [phone]#### VITB6 ####[address] [phone] [place], Free, Serum 21.0 mg/L High 3.30-19.40 [facility] Comment on above: Result Comment: Rare ly, increased serum free light chains values may not be detected due to antigen excess phenomenon. Results should always be correlated with other laboratory results and clinical findings. Performed By: #### R ETIC, PTT, IRON, NTBNP, FERR, KLFRS, MMA ####[facility] [place], [place] [phone]#### VITB6 ####[facility] [address] [place], [place] [phone] Lambda, Free, Serum 10.7 mg/L Normal 5.7-26.3 [facility] Comment on above: Result Comment: Rare ly, increased serum free light chains values may not be detected due to antigen excess phenomenon. Results should always be correlated with other laboratory results and clinical findings. Performed By: #### R ETIC, PTT, IRON, NTBNP, FERR, KLFRS, MMA ####[facility] [address] [place], [place] [phone]#### VITB6 ####[facility] [place], [place] [phone] Lambda, Free, Urineon 2016 Lambda, Free, Urine 5.96 mg/L Normal 0.24-6.66 [facility] Comment on above: Result Comment: (NOT E)Test Performed by [facility],[address] [place] [address] [id number] Beach M.D., Ph.D., Director of [phone], CLIA [id number] Methylmalonic Acidon 017 Methylmalonic Acid 206 nmol/L Normal 79-376 [facility] Comment on above: Result Comment: This test was developed and its performance characteristics determined by [facility]'s Gregorio Lind [facility] Pathology and Laboratory Medicine [place] ([facility]).It has not been cleared or approved by the FDA. [facility] is regulated under CLIA as qualified to perform high-complexity testing.This test is used for clinical purposes. It should not be regarded as investigational or for research. Performed By: #### R ETIC, PTT, IRON, NTBNP, FERR, KLFRS, MMA ####[facility] [address] [place], [place] [phone]#### VITB6 ####[facility] [address] [place], [place] [phone] NT Pro BNPon 03-16-2017 PRO B Natr Peptide <50 Normal <125 [facility] Comment on above: Performed By: #### R ETIC, PTT, IRON, NTBNP, FERR, KLFRS, MMA ####[facility] [address] [place], [place] [phone]#### VITB6 ####[facility] [address] [place], [place] [phone] PROGRESSon 03-16-2017 PROGRESS HNO ID: [id number]: Macho Mejia: (none)Author Type: PhysicianType: Progress NotesFiled: 03/17/2017 7:43 AMNote Text:Hematology and Medical OncologyPATIENT NAME: Lani Zaragoza.CLINIC NO: [id number].ATTENDING PHYSICIAN: Macho Rashid MD.DATE OF SERVICE:03/16/2017.DIAG NOSIS: Monoclonal gammopathy of [...] on his arms. 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 No [...] No change inbowel habits, rectal bleeding or melena.MEDICATIONS:Patrick escobar Outpatient Prescriptions:amLODIPi ne (NORVASC) 5 mg tablet [...] DATA:Component Latest Ref Rng AND Units 03/16/2017WBC, [place] 3.70 - 11.00 k/uL 8.77RBC, [place] 4.20 - 6.00 m/uL 4.79Hemoglobin, Shiva 13.0 - 17.0 g/dL 13.2Hematocrit, [place] 39.0 - 51.0 % 39.9MCV, [place] 80.0 - 100.0 fL 83.3MCH, [place] 26.0 - 34.0 pg 27.6MCHC, [place] 30.5 - 36.0 g/dL 33.1RDW, [place] 11.5 - 15.0 % 14.7Platelet Cnt, [place] 150 - 400 k/uL 195MPV, [place] 9.0 - 12.7 fL 9.4Absol Gran Count [...] amyloidosis: 24-hour urineprotein, serum and urine [place]/Lambda light chains. PTT (factor X) becauseof increased bruising. 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 Dillan Beach Normal [facility] Reticulocyteon 03-16-2017 Abs Retic 0.115 M/uL High 0.0180-0.100 0 [facility] Comment on above: Performed By: #### R ETIC, PTT, IRON, NTBNP, FERR, KLFRS, MMA ####[address] [phone]#### VITB6 ####[facility] [place] [address] [phone] Retic% 2.4 % High 0.4-2.0 [facility] Comment on above: Performed By: #### R ETIC, PTT, IRON, NTBNP, FERR, KLFRS, MMA ####[address] [phone]#### VITB6 ####[facility] [place] [address] [phone] Vitamin B6 Plasmaon 03-16-20 17 Vitamin B6 Plasma 12.2 nmol/L Low 20.0-125.0 [facility] Comment on above: Result Comment: (NOT E)INTERPRETIVE INFORMATION: Vitamin B6 (Pyridoxal 5-Phosphate)Pyridoxal 5'-phosphate measured in a specimen collected followingan 8-hour or overnight fast accurately indicates vitamin H4kjfvbzhltfz status. Non-fasting specimen concentration reflectsrecent vitamin intake.Test developed and characteristics determined by [facility]. See Compliance Statement B: [facility]/CSPerformed by [facility],[address] [place] [address] lcr.[facility], Thompson Delvalle MD, Lab. Director Performed By: #### R ETIC, PTT, IRON, NTBNP, FERR, KLFRS, MMA ####[facility] [address] [place], [place] [phone]#### VITB6 ####[facility] [address] [place], [place] [phone] [place] Abs Gr + CBCon 03-16 Absol Gran Count 5.10 k/uL Normal 1.45-7.50 [facility] Erythrocyte distribution width Auto Ratio (RBC) 14.7 % Normal 11.5-15.0 [facility] Erythrocytes (RBC) 4.79 10*6/uL Normal 4.20-6.00 [facility] Hematocrit (HCT) 39.9 % Normal 39.0-51.0 [facility] Hemoglobin mass conc (Bld) 13.2 g/dL Normal 13.0-17.0 [facility] MCH 27.6 pg Normal 26.0-34.0 [facility] MCHC mass conc (RBC) 33.1 g/dL Normal 30.5-36.0 [facility] MCV 83.3 fL Normal 80.0-100.0 [facility] Platelet mean volume (PMV) 9.4 fL Normal 9.0-12.7 [facility] Comment on above: Result Comment: Test performed at: [facility], [address] [place] [address]., [place] [address]. WBC (Leukocytes) 8.77 10*3/uL Normal 3.70-11.[address] [facility] Platelet Cnt 195 k/uL Normal 150-400 [facility] Vital Signs Date Time Vital Sign Value Performing Clinician Sharri lei 12-11-2024 10:06-0400 Body mass index (BMI) [Ratio] 55.2 kg/m2 Dr. Bernabe Reese MD Work Phone: [facility] 12-11-2024 10:06-0400 Body temperature 97.5 [degF] Dr. Bernabe Reese MD Work Phone: [facility] 12-11-2024 10:06-0400 Diastolic blood pressure 53 mm[Hg] Dr. Bernabe Reese MD Work Phone: [facility] 12-11-2024 10:06-0400 Heart rate 65 /min Dr. Bernabe Reese MD Work Phone: [facility] 12-11-2024 10:06-0400 Respiratory rate 18 /min Dr. Bernabe Reese MD Work Phone: [phone] [place] [address] 12-11-2024 10:06-0400 Systolic blood pressure 95 mm[Hg] Dr. Bernabe Reese MD Work Phone: [phone])[phone] [place] [address] 12-04-2024 10:12-0400 Body mass index (BMI) [Ratio] 55.2 kg/m2 Dr. Bernabe Reese MD Work Phone: [phone])837-449706 [address] 12-04-2024 10:12-0400 Body temperature 96.5 [degF] Dr. Bernabe Reese MD Work Phone: [phone])[phone] [address] 12-04-2024 10:12-0400 Diastolic blood pressure 70 mm[Hg] Dr. Bernabe Reese MD Work Phone: [phone])[phone] [place] [address] 12-04-2024 10:12-0400 Heart rate 70 /min Dr. Bernabe Reese MD Work Phone: [phone](575)[phone] [place] [address] 12-04-2024 10:12-0400 Respiratory rate 16 /min Dr. Bernabe Reese MD Work Phone: [facility] 12-04-2024 10:12-0400 Systolic blood pressure 141 mm[Hg] Dr. Bernabe Reese MD Work Phone: [facility] 11-18-2024 00:32-0400 Body weight 164.[address] Bernabe Reese MD Work Phone: [facility] 11-13-2024 10:23-0400 Body mass index (BMI) [Ratio] 55.2 kg/m2 Dr. Bernabe Reese MD Work Phone: [facility] 11-13-2024 10:23-0400 Body temperature 96.2 [degF] Dr. Bernabe Reese MD Work Phone: [facility] 11-13-2024 10:23-0400 Diastolic blood pressure 67 mm[Hg] Dr. Bernabe Reese MD Work Phone: [facility] 11-13-2024 10:23-0400 Heart rate 69 /min Dr. Bernabe Reese MD Work Phone: [facility] 11-13-2024 10:23-0400 Respiratory rate 18 /min Dr. Bernabe Reese MD Work Phone: [facility] 11-13-2024 10:23-0400 Systolic blood pressure 127 mm[Hg] Dr. Bernabe Reese MD Work Phone: [facility] 10-30-2024 07:33-0400 Body temperature 98.01 [degF] Kevin Soriano MD Work Phone: [facility] 10-30-2024 07:33-0400 Diastolic blood pressure 71 mm[Hg] Kevin Soriano MD Work Phone: [facility] 10-30-2024 07:33-0400 Heart rate 66 /min Kevin Soriano MD Work Phone: [facility] 10-30-2024 07:33-0400 Respiratory rate 20 /min Kevin Soriano MD Work Phone: [facility] 10-30-2024 07:33-0400 SaO2% (BldA) [Mass fraction] 91 % Kevin Soriano MD Work Phone: [facility] 10-30-2024 07:33-0400 Systolic blood pressure 124 mm[Hg] Kevin Soriano MD Work Phone: [facility] 10-26-2024 09:00-0400 Body mass index (BMI) [Ratio] 54.34 kg/m2 Kevin Soriano MD Work Phone: [facility] 10-26-2024 09:00-0400 Body weight 166.92 kg Kevin Soriano MD Work Phone: [facility] 10-18-2024 00:21-0400 Body weight 164.[address] Bernabe Reese MD Work Phone: [facility] 10-16-2024 23:23-0400 Body height 175.3 cm Kevin Soriano MD Work Phone: [facility] 10-16-2024 18:30-0400 Diastolic blood pressure 85 mm[Hg] Dr. Bernabe Reese MD Work Phone: [facility] 10-16-2024 18:30-0400 Heart rate 85 /min Dr. Bernabe Reese MD Work Phone: [facility] 10-16-2024 18:30-0400 Systolic blood pressure 136 mm[Hg] Dr. Bernabe Reese MD Work Phone: [facility] 10-16-2024 18:00-0400 Inhaled oxygen flow rate 3 L/min Dr. Bernabe Reese MD Work Phone: [facility] 10-16-2024 18:00-0400 Respiratory rate 16 /min Dr. Bernabe Reese MD Work Phone: [facility] 10-16-2024 18:00-0400 SaO2% (BldA) [Mass fraction] 98 % Dr. Bernabe Reese MD Work Phone: [facility] 10-16-2024 17:00-0400 Body mass index (BMI) [Ratio] 52.7 kg/m2 Dr. Bernabe Reese MD Work Phone: [facility] 10-16-2024 15:45-0400 Body temperature 97.2 [degF] Dr. Bernabe Reese MD Work Phone: [facility] 10-15-2024 07:13-0400 Inhaled oxygen concentration 30 % Dr. Bernabe Reese MD Work Phone: [facility] 10-13-2024 14:34-0400 Body height 172.[address] Bernabe Reese MD Work Phone: [facility] 10-13-2024 14:34-0400 Body weight 157.[address] Bernabe Reese MD Work Phone: [facility] 2024 16:00-0400 Diastolic blood pressure 81 mm[Hg] Dr. Bernabe Reese MD Work Phone: [phone])272-904343 [place] [address] 2024 16:00-0400 Heart rate 93 /min Dr. Bernabe Reese MD Work Phone: 1(376)[phone] [address] 2024 16:00-0400 Respiratory rate 18 /min Dr. Bernabe Reese MD Work Phone: [facility] 2024 16:00-0400 SaO2% (BldA) [Mass fraction] 98 % Dr. Bernabe Reese MD Work Phone: [facility] 2024 16:00-0400 Systolic blood pressure 149 mm[Hg] Dr. Bernabe Reese MD Work Phone: [facility] 2024 15:17-0400 Body temperature 98.6 [degF] Dr. Bernabe Reese MD Work Phone: [facility] 2024 12:48-0400 Body mass index (BMI) [Ratio] 53.9 kg/m2 Dr. Bernabe Reese MD Work Phone: [facility] 2024 12:48-0400 Body weight [address] Bernabe Reese MD Work Phone: [facility] 2024 12:46-0400 Body height 172.[address] Bernabe Reese MD Work Phone: [facility] 2024 10:32-0400 Body mass index (BMI) [Ratio] 55.2 kg/m2 Dr. Bernabe Reese MD Work Phone: [facility] 2024 10:32-0400 Body temperature 97.6 [degF] Dr. Bernabe Reese MD Work Phone: [facility] 2024 10:32-0400 Diastolic blood pressure 71 mm[Hg] Dr. Bernabe Reese MD Work Phone: [facility] 2024 10:32-0400 Heart rate 80 /min Dr. Bernabe Reese MD Work Phone: [phone] [place] [address] 2024 10:32-0400 Respiratory rate 16 /min Dr. Bernabe Reese MD Work Phone: [facility] 2024 10:32-0400 Systolic blood pressure 160 mm[Hg] Dr. Bernabe Reese MD Work Phone: [facility] 10-02-2024 10:19-0400 Body mass index (BMI) [Ratio] 55.2 kg/m2 Dr. Bernabe Reese MD Work Phone: [facility] 10-02-2024 10:19-0400 Body temperature 96.5 [degF] Dr. Bernabe Reese MD Work Phone: [facility] 10-02-2024 10:19-0400 Diastolic blood pressure 75 mm[Hg] Dr. Bernabe Reese MD Work Phone: [facility] 10-02-2024 10:19-0400 Heart rate 78 /min Dr. Bernabe Reese MD Work Phone: [facility] 10-02-2024 10:19-0400 Respiratory rate 14 /min Dr. Bernabe Reese MD Work Phone: [facility] 10-02-2024 10:19-0400 Systolic blood pressure 168 mm[Hg] Dr. Bernabe Reese MD Work Phone: [facility] 09-25-2024 09:42-0400 Body height 172.[address] Bernabe Reese MD Work Phone: [facility] 09-25-2024 09:42-0400 Body weight 164.[address] Bernabe Reese MD Work Phone: [facility] 07-11-2023 06:19-0500 Body height 172.[address] Bernabe Reese Work Phone: [facility] 07-11-2023 06:19-0500 Body mass index (BMI) [Ratio] 58.5 kg/m2 Dr. Bernabe Reese Work Phone: [facility] 07-11-2023 06:19-0500 Body temperature 97.7 [degF] Dr. Bernabe Reese Work Phone: [facility] 07-11-2023 06:19-0500 Body weight 174.[address] Bernabe Reese Work Phone: [facility] 07-11-2023 06:19-0500 Diastolic blood pressure 77 mm[Hg] Dr. Bernabe Reese Work Phone: [facility] 07-11-2023 06:19-0500 Heart rate 59 /min Dr. eBrnabe Reese Work Phone: [facility] 07-11-2023 06:19-0500 Respiratory rate 18 /min Dr. Bernabe Reese Work Phone: [facility] 07-11-2023 06:19-0500 SaO2% (BldA) [Mass fraction] 96 % Dr. Bernabe Reese Work Phone: [facility] 07-11-2023 06:19-0500 Systolic blood pressure 138 mm[Hg] Dr. Bernabe Reese Work Phone: [facility] 05-23-2023 13:14-0500 Body height 172.[address] Bernabe Reese Work Phone: [facility] 05-23-2023 13:14-0500 Body weight 168.[address] Bernabe Reese Work Phone: [facility] 05-23-2023 10:30-0500 SaO2% (BldA) [Mass fraction] 91 % Dr. Bernabe Reese Work Phone: [facility] 05-23-2023 09:00-0500 Body temperature 98.2 [degF] Dr. Bernabe Reese Work Phone: [facility] 05-23-2023 09:00-0500 Diastolic blood pressure 61 mm[Hg] Dr. Bernabe Reese Work Phone: [facility] 05-23-2023 09:00-0500 Heart rate 84 /min Dr. Bernabe Reese Work Phone: [facility] 05-23-2023 09:00-0500 Respiratory rate 18 /min Dr. Bernabe Reese Work Phone: [facility] 05-23-2023 09:00-0500 Systolic blood pressure 131 mm[Hg] Dr. Bernabe Reese Work Phone: [facility] 05-23-2023 05:05-0500 Inhaled oxygen concentration 21 % Dr. Bernabe Reese Work Phone: [facility] 05-21-2023 18:05-0500 Body mass index (BMI) [Ratio] 56.5 kg/m2 Dr. Bernabe Reese Work Phone: [facility] 03-24-2023 10:57-0400 Body height 172.[address] Bernabe Reese Work Phone: [facility] 03-24-2023 10:57-0400 Body mass index (BMI) [Ratio] 58.6 kg/m2 Dr. Bernabe Reese Work Phone: [facility] 03-24-2023 10:57-0400 Body weight 174.[address] Bernabe Reese Work Phone: [facility] 03-24-2023 10:57-0400 Diastolic blood pressure 84 mm[Hg] Dr. Bernabe Reese Work Phone: [facility] 03-24-2023 10:57-0400 Heart rate 84 /min Dr. Bernabe Reese Work Phone: [facility] 03-24-2023 10:57-0400 Respiratory rate 18 /min Dr. Bernabe Reese Work Phone: [facility] 03-24-2023 10:57-0400 Systolic blood pressure 129 mm[Hg] Dr. Bernabe Reese Work Phone: [facility] 12-03-2022 10:42-0400 Body temperature 97.8 [degF] Dr. Bernabe Reese Work Phone: [facility] 12-03-2022 10:42-0400 Diastolic blood pressure 84 mm[Hg] Dr. Bernabe Reese Work Phone: [facility] 12-03-2022 10:42-0400 Heart rate 91 /min Dr. Bernabe Reese Work Phone: [facility] 12-03-2022 10:42-0400 Respiratory rate 18 /min Dr. Bernabe Reese Work Phone: [facility] 12-03-2022 10:42-0400 SaO2% (BldA) [Mass fraction] 94 % Dr. Bernabe Reese Work Phone: [facility] 12-03-2022 10:42-0400 Systolic blood pressure 119 mm[Hg] Dr. Bernabe Reese Work Phone: [facility] 12-03-2022 05:58-0400 Body mass index (BMI) [Ratio] 59.8 kg/m2 Dr. Bernabe Reese Work Phone: [facility] 12-03-2022 05:58-0400 Body weight 178.[address] Bernabe Reese Work Phone: [facility] 11-30-2022 09:36-0400 Inhaled oxygen flow rate 2 L/min Dr. Bernabe Reese Work Phone: [facility] 11-30-2022 06:58-0400 Inhaled oxygen concentration 30 % Dr. Bernabe Reese Work Phone: [facility] 11-29-2022 14:56-0400 Body height 172.[address] Bernabe Reese Work Phone: [facility] 11-28-2022 07:32-0400 Body temperature 97.9 [degF] Dr. Bernabe Reese Work Phone: [facility] 11-28-2022 07:32-0400 Diastolic blood pressure 84 mm[Hg] Dr. Bernabe Reese Work Phone: [facility] 11-28-2022 07:32-0400 Heart rate 81 /min Dr. Bernabe Reese Work Phone: [facility] 11-28-2022 07:32-0400 Respiratory rate 16 /min Dr. Bernabe Reese Work Phone: [facility] 11-28-2022 07:32-0400 SaO2% (BldA) [Mass fraction] 98 % Dr. Bernabe Reese Work Phone: [facility] 11-28-2022 07:32-0400 Systolic blood pressure 138 mm[Hg] Dr. Bernabe Reese Work Phone: [facility] [facility] 11-28-2022 04:28-0400 Body mass index (BMI) [Ratio] 60.2 kg/m2 Dr. Bernabe Reese Work Phone: [facility] 11-28-2022 04:28-0400 Body weight 179.[address] Bernabe Reese Work Phone: [facility] 09-27-2022 09:10-0400 Body height 172.[address] Bernabe Reese Work Phone: [facility] 09-27-2022 09:10-0400 Body mass index (BMI) [Ratio] 59.3 kg/m2 Dr. Bernabe Reese Work Phone: [facility] 09-27-2022 09:10-0400 Body weight 176.[address] Bernabe Reese Work Phone: [facility] 09-27-2022 09:10-0400 Diastolic blood pressure 78 mm[Hg] Dr. Bernabe Reese Work Phone: [facility] 09-27-2022 09:10-0400 Heart rate 80 /min Dr. Bernabe Reese Work Phone: [facility] 09-27-2022 09:10-0400 Respiratory rate 18 /min Dr. Bernabe Reese Work Phone: [facility] 09-27-2022 09:10-0400 Systolic blood pressure 130 mm[Hg] Dr. Bernabe Reese Work Phone: [facility] 03-12-2022 09:55-0400 Body height 172.[address] Bernabe Reese Work Phone: [facility] Work Phone: 03-12-2022 09:55-0400 Body mass index (BMI) [Ratio] 60 kg/m2 Dr. Bernabe Reese Work Phone: [facility] Work Phone: 03-12-2022 09:55-0400 Body weight 179.[address] Bernabe Reese Work Phone: [facility] Work Phone: 03-12-2022 09:55-0400 Diastolic blood pressure 84 mm[Hg] Dr. Bernabe Reese Work Phone: [facility] Work Phone: 03-12-2022 09:55-0400 Heart rate 82 /min Dr. Bernaeb Reese Work Phone: [facility] Work Phone: 03-12-2022 09:55-0400 Respiratory rate 18 /min Dr. Bernabe Reese Work Phone: [facility] Work Phone: 03-12-2022 09:55-0400 Systolic blood pressure 138 mm[Hg] Dr. Bernabe Reese Work Phone: [facility] Work Phone: 03-09-2022 13:48-0400 Body mass index (BMI) [Ratio] 60.6 kg/m2 Dr. Bernabe Reese Work Phone: [facility] Work Phone: 03-09-2022 13:48-0400 Body temperature 98.3 [degF] Dr. Bernabe Reese Work Phone: [facility] Work Phone: 03-09-2022 13:48-0400 Body weight 180.[address] Bernabe Reese Work Phone: [facility] Work Phone: 03-09-2022 13:48-0400 Diastolic blood pressure 86 mm[Hg] Dr. Bernabe Reese Work Phone: [facility] Work Phone: 03-09-2022 13:48-0400 Heart rate 101 /min Dr. Bernabe Reese Work Phone: [facility] Work Phone: 03-09-2022 13:48-0400 Respiratory rate 16 /min Dr. Bernabe Reese Work Phone: [facility] Work Phone: 03-09-2022 13:48-0400 SaO2% (BldA) [Mass fraction] 94 % Dr. Bernabe Reese Work Phone: [facility] Work Phone: 03-09-2022 13:48-0400 Systolic blood pressure 165 mm[Hg] Dr. Bernabe Reees Work Phone: [facility] Work Phone: Encounters Encounter Date Encounter Type Care Provider Facility Start: 12-25-2024 ambulatory Bernabe Telles y:[facility] Start: 12-18-2024 ambulatory Bernabe Telles y:[facility] Start: 12-11-2024 End: 12-17-[address] Bernabe Reese MD Work Phone: [facility] Start: 12-11-2024 End: 12-17-2024 Dr. Canelo Cavazos MD -Wound Healing [facility] Work Phone: Start: 12-10-2024 ambulatory Bernabe Telles y:[facility] Start: 12-10-2024 Dr. Kelli Salgado MD -[facility] Start: 12-04-[address] Ramon vieira DP -[facility] Work Phone: Start: 11-29-2024 End: 11-29-[address] Bernabe Reese MD Work Phone: [facility] Work Phone: Start: 11-29-2024 End: 11-29-2024 Patient encounter procedure Kelli Salgado MD -Cat Scan [facility] Work Phone: Start: 11-29-2024 End: 11-29-2024 Kelli Salgado MD -Cat Scan [facility] Work Phone: Start: 11-29-2024 End: 11-29-2024 ambulatory Bernabe Reese Facility:[facility] Start: 11-21-2024 ambulatory Bernabe Telles y:[facility] Start: 11-21-[address] Kelli Salgado MD -[facility] Start: 11-21-2024 Dr. Kelli Salgado MD -[facility] Start: 11-14-2024 ambulatory Bernabe Telles y:[facility] Start: 11-14-[address] Kelli Salgado MD -[facility] Start: 11-14-2024 Dr. Kelli Salgado MD -[facility] Start: 11-13-2024 End: 11-17-[address] Bernabe Reese MD Work Phone: [facility] Work Phone: Start: 11-13-2024 End: 11-17-[address] Ramon Garcia DPM -[facility] Work Phone: Start: 11-13-2024 End: 11-17-2024 Dr. Ramon Garcia DPM -[facility] nt Work Phone: Start: 11-07-2024 ambulatory Bernabe Reese Facilit y:[facility] Start: 11-07-[address] Kelli Salgado MD -[facility] Start: 11-07[facility] Start: 11-02-2024 ambulatory Bernabe Reese Facilit y:[facility] Start: 11-02-[address] Kelli Salgado MD [facility] Start: 11-02-2024 Dr. Kelli Salgado MD [facility] Start: 10-31-2024 ambulatory Bernabe Reese Facilit y:[facility] Start: 10-31-[address] Kelli Salgado MD -[facility] Start: 10-31-2024 Dr. Kelli Salgado MD [facility] Start: 10-16-2024 End: 10-16-2024 ambulatory UNKNOWN PROVIDER Facility:[facility] Start: 10-16-2024 End: 10-30-2024 Evaluation and management of inpatient Kevin Soriano MD Work Phone: [id number] Start: 10-16-2024 Non-patient / Non-visit Dr. Haily Javier DO [facility] Work Phone: Start: 10-16-2024 Dr. Haily Javier DO [facility] Work Phone: Start: 10-15-2024 Non-patient / Non-visit Dr. Haily Javier [facility] Work Phone: Start: 10-15-2024 Dr. Haily Javier [facility] Work Phone: Start: 10-14-2024 Non-patient / Non-visit Dr. Ozzy Cabrera [facility] Work Phone: Start: 10-14-2024 Dr. Ozzy Cabrera [facility] Work Phone: Start: 10-13-2024 Non-patient / Non-visit Dr. Ozzy Cabrera [facility] Work Phone: Start: 10-13-2024 Dr. Ozzy Cabrera [facility] Work Phone: Start: 10-12-2024 Non-patient / Non-visit Dr. Ozzy Cabrera [facility] Work Phone: Start: 10-12-2024 Dr. Ozzy Cabrera [facility] Work Phone: Start: 10-12-2024 ambulatory Ramon Lawrence Facility :[facility] Start: 10-11-2024 Non-patient / Non-visit Dr. Ozzy Cabrera [facility] Work Phone: Start: 10-11-2024 Dr. Ozzy Cabrera [facility] Work Phone: Start: 10-11-2024 End: 10-11-2024 ambulatory [facility] Facility:[facility] Start: 10-11-2024 End: 10-11-2024 Non-patient / Non-visit Dr. Chetan Cowan MD -[facility] Work Phone: Start: 10-11-2024 End: 10-11-2024 Dr. Chetan Cowan MD -[facility] Work Phone: Start: 10-10-2024 Non-patient / Non-visit Dr. Ozzy Cabrera [facility] Work Phone: Start: 10-10-2024 Dr. Ozzy Cabrera DO -[facility] Work Phone: Start: 2024 End: 10-16-2024 Dr. Haily Javier DO -Intensive Care Unit Work Phone: Start: 2024 ambulatory Bernabe Reese Facilit y:[facility] Start: 2024 End: 10-16-2024 Evaluation and management of inpatient Dr. Chula Antunez MD -Medical Surgical 3 Work Phone: Start: 2024 End: 10-17-2024 [facility] Start: 2024 End: 10-17-[address] Ramon Garcia DPM -[facility] Work Phone: Start: [address] Ramon vieira DPJoyce -[facility] Work Phone: Start: 2024 End: 10-17-2024 Dr. Ramon Garcia DPM -Wound Healing [facility] Work Phone: Start: 10-02-[address] Ramon vieira DPJoyce -[facility] Work Phone: Start: 09-28-2024 End: 09-28-[address] Bernabe Reese MD Work Phone: [facility] Work Phone: Start: 09-28-2024 End: 09-28-[address] Ramon Garcia DPM -Laboratory, [place] Work Phone: Start: 09-28-2024 End: 09-28-2024 Dr. Ramon Garcia DPM -Laboratory [facility] Work Phone: Start: 09-28-2024 End: 09-28-2024 ambulatory Ramon Garcia Facility:[facility] Start: 08-22-2024 End: 08-22-[address] Bernabe Reese MD Work Phone: [facility] Work Phone: Start: 08-22-2024 End: 08-22-[address] Ramon Garcia DPM -Laboratory, [place] Work Phone: Start: 08-22-2024 End: 08-22-2024 Dr. Ramon Garcia DPJoyce -Laboratory Speci men Work Phone: Start: 08-22-2024 End: 08-22-2024 ambulatory Bernabe Reese Facility:[facility] Start: 08-15-2024 ambulatory Bernabe Reese Facilit y:[facility] Start: 08-02-2024 End: 08-02-[address] [facility] Start: 08-02-2024 End: 08-02-2024 ambulatory Bernabe Reese Facility:[facility] Start: 06-19-2024 End: 06-19-[address] [facility] Start: 06-19-2024 End: 06-19-2024 ambulatory Bernabe Reese Facility:[facility] Start: 03-08-2024 ambulatory Bernabe Reese Facilit y:[facility] Start: 02-13-2024 End: 02-13-2024 ambulatory Bernabe Reese Facility:[facility] Start: 12-28-2023 End: 12-28-2023 ambulatory Bernabe Reese Facility:[facility] Start: 09-09-2023 End: 09-09-[address] Bernabe Reese Work Phone: [facility] Work Phone: Start: 09-09-2023 End: 09-09-[address] Bernabe Reese [facility] Phone[facility] Start: 07-11-2023 End: 07-11-[address] Bern[facility] Reese [facility] Start: 07-11-2023 End: 07-11-[address] Bernabe Reese Work Phone: [facility]-Pulmonary Medicine [facility] Work Phone: Start: 05-23-2023 Non-patient / Non-visit Dr. Bernabe Reese Work Phone: [facility] Work Phone: Start: 05-22-2023 Non-patient / Non-visit Dr. Bernabe Reese Work Phone: [facility] Work Phone: Start: 05-21-2023 End: 05-23-2023 Evaluation and management of inpatient Dr. Bernabe Reese Work Phone: [facility]-Medical Surgical 3 Work Phone: Start: 04-15-2023 End: 04-15-[address] Bernabe Reese Work Phone: [facility] Work Phone: Start: 04-15-2023 End: 04-15-[address] Bernabe Reese Work Phone: [facility] Start: 03-24-2023 End: 03-24-[address] Bernabe Reese Work Phone: [facility] Work Phone: Start: 12-03-2022 Non-patient / Non-visit Dr. Bernabe Reese Work Phone: [facility] Start: 12-02-2022 Non-patient / Non-visit Dr. Bernabe Reese Work Phone: [facility] Start: 12-01-2022 Non-patient / Non-visit Dr. Bernabe Reese Work Phone: [facility] Start: 11-30-2022 Non-patient / Non-visit Dr. Bernabe Reese Work Phone: [facility] Start: 11-29-2022 Non-patient / Non-visit Dr. Bernabe Reese Work Phone: [facility] Start: 11-29-2022 Non-patient / Non-visit Dr. Bernabe Reese Work Phone: [facility] Start: 11-28-2022 End: 12-03-2022 Evaluation and management of inpatient Dr. Bernabe Reese Work Phone: [facility]-Progressive Care Unit Start: 11-28-2022 End: 11-28-2022 Emergency department patient visit Dr. Bernabe Reese Work Phone: [facility]-Emergency Department Start: 11-01-2022 End: 11-01-[address] Bernabe Reese Work Phone: [facility] Start: 10-22-2022 End: 10-22-[address] Bernabe Reese Work Phone: [facility] Work Phone: Start: 10-22-2022 End: 10-22-[address] Bernabe Reese Work Phone: [facility] Start: 09-27-2022 End: 09-27-[address] Bernabe Reese Work Phone: [facility] Start: 08-27-2022 Patient encounter procedure [facility] Provider [facility] Start: 07-15-2022 End: 07-15-2022 ambulatory [facility] Work Phone: Start: 07-15-2022 End: 07-15-2022 Patient encounter procedure [facility] Start: 06-16-2022 End: 06-16-[address] Bernabe Reese Work Phone: [facility] Work Phone: Start: 06-16-2022 End: 06-16-[address] Bernabe Reese Work Phone: [facility] Start: 03-12-2022 End: 03-12-[address] Bernabe Reese Work Phone: [facility] Start: 03-09-2022 End: 03-09-[address] Bernabe Reese Work Phone: [facility] Start: 01-19-2022 End: 01-19-2022 Patient encounter procedure [facility] Start: 10-26-2021 End: 10-26-2021 Patient encounter procedure [facility] Start: 09-11-2021 End: 09-11-2021 Patient encounter procedure [facility] Start: 02-10-2018 End: 02-10-2018 Emergency department patient [facility] Start: 11-24-2017 Ambulatory Dillan Telles y:[facility] Start: 04-05-2017 End: 04-07-2017 Ambulatory [facility] Start: 03-17-2017 End: 03-17-2017 Ambulatory [facility] Start: 03-16-2017 Ambulatory [facility] Start: 03-16-2017 End: 04-07-2017 Ambulatory [facility] Procedures Date Procedure Procedure Detail Performing Clinician Start: 12-10-2024 Blood count smear rscp w/mnl difrntl wbc count Dr. Bernabe [...] Phone: Start: 10-30-2024 Glucose measurement, blood Elizabeth Agosto MD Work Phone: Start: 10-30-2024 Oscillating positive expiratory pressure (flutter) physiotherapy Francie Grier [facility] Work Phone: Start: 10-29-2024 Glucose measurement, blood Elizabeth Agosto MD Work Phone: Start: 10-29-2024 Glucose measurement, blood Elizabeth Agosto MD Work Phone: Start: 10-29-2024 Glucose measurement, blood Elizabeth Agosto MD Work Phone: Start: 10-29-2024 Glucose measurement, blood Elizabeth Agosto MD Work Phone: Start: 10-29-2024 Creatinine blood Roz M Hill [facility] Work Phone: Start: 10-29-2024 Oscillating positive expiratory pressure (flutter) [facility] Francie Grier [facility] Work Phone: Start: 10-28-2024 Glucose measurement, blood Elizabeth Agosto MD Work Phone: Start: 10-28-2024 Glucose measurement, blood Elizabeth Agosto MD Work Phone: Start: 10-28-2024 Glucose measurement, blood Elizabeth Agosto MD Work Phone: Start: 10-28-2024 Glucose measurement, blood Elizabeth Agosto MD Work Phone: Start: 10-27-2024 Glucose measurement, blood Elizabeth Agosto MD Work Phone: Start: 10-27-2024 Glucose measurement, blood Elizabeth Agosto MD Work Phone: Start: 10-27-2024 Drug screen quantita tive vancomycin Elizabeth Agosto MD Work Phone: Start: 10-27-2024 Glucose measurement, blood Elizabeth Agosto MD Work Phone: Start: 10-27-2024 Glucose measurement, blood Elizabeth Agosto MD Work Phone: Start: 10-26-2024 Glucose measurement, blood Elizabeth Agosto MD Work Phone: Start: 10-26-2024 CONTINUOUS CARDIAC MONITORING STRIP Other Other Start: 10-26-2024 Glucose measurement, blood Elizabeth Agosto MD Work Phone: Start: 10-26-2024 CARDIAC RHYTHM (SCANNED) Other Other OT Start: 10-26-2024 Glucose measurement, blood Elizabeth Agosto MD Work Phone: Start: 10-26-2024 Creatinine blood Braden Irby DO Work Phone: Start: 10-26-2024 Ct head/brain w/o co ntrast material Roz Alejandre [employer] Work Phone: Start: 10-26-2024 Oscillating positive expiratory pressure (flutter) physiotherapy Francie Grier [employer] Work Phone: Start: 10-25-2024 Glucose measurement, blood Elizabeth Agosto MD Work Phone: Start: 10-25-2024 Glucose measurement, blood Elizabeth Agosto MD Work Phone: Start: 10-25-2024 Glucose measurement, blood Elizabeth Agosto MD Work Phone: Start: 10-25-2024 Glucose measurement, blood Elizabeth Agosto MD Work Phone: Start: 10-25-2024 Glucose measurement, blood Elizabeth Agosto MD Work Phone: Start: 10-25-2024 Creatinine charlie Iryb DO Work Phone: Start: 10-25-2024 Oscillating positive expiratory pressure (flutter) physiotherapy Francie Grier [employer]-[facility] Work Phone: Start: 10-24-2024 Glucose measurement, blood Elizabeth Agosto MD Work Phone: Start: 10-24-2024 Creatinine blood Valerie er S Megan [employer] Work Phone: Start: 10-24-2024 Radiologic exam ches t single view Cory S Megan [employer] Work Phone: Start: 10-24-2024 Glucose measurement, blood Elizabeth Agosto MD Work Phone: Start: 10-24-2024 Glucose measurement, blood Elizabeth Agosto MD Work Phone: Start: 10-24-2024 Glucose measurement, blood Elizabeth Agosto MD Work Phone: Start: 10-24-2024 Oscillating positive expiratory pressure (flutter) physiotherapy Francie Grier [employer]-[facility] Work Phone: Start: 10-23-2024 Creatinine blood Braden Irby DO Work Phone: Start: 10-23-2024 Drug screen quantita tive vancomycin Dayami E Pressburger [facility] Start: 10-23-2024 Glucose measurement, blood Elizabeth Agosto MD Work Phone: Start: 10-23-2024 Glucose measurement, blood Elizabeth Agosto MD Work Phone: Start: 10-23-2024 Glucose measurement, blood Elizabeth Agosto MD Work Phone: Start: 10-23-2024 Glucose measurement, blood Elizabeth Agosto MD Work Phone: Start: 10-23-2024 Oscillating positive expiratory pressure (flutter) physiotherapy Francie Grier [employer]-[facility] Work Phone: Start: 10-23-2024 Creatinine blood Braden Irby DO Work Phone: Start: 10-22-2024 Glucose measurement, blood Elizabeth Agosto MD Work Phone: Start: 10-22-2024 Glucose measurement, blood Elizabeth Agosto MD Work Phone: Start: 10-22-2024 Glucose measurement, blood Elizabeth Agosto MD Work Phone: Start: 10-22-2024 Glucose measurement, blood Elizabeth Agosto MD Work Phone: Start: 10-22-2024 Gases blood ph direc t everardo xcpt pulse oximitry Shweta BAKERC Work Phone: Start: 10-22-2024 Oscillating positive expiratory pressure (flutter) physiotherapy Francie Grier [employer]-[facility] Work Phone: Start: 10-22-2024 Calcium ionized Francie Grier [employer]-[facility] Work Phone: Start: 10-21-2024 Drug screen quantita tive vancomycin Maryann Douglas [facility] Start: 10-21-2024 Glucose measurement, blood Dillan Guzman MD Work Phone: Start: 10-21-2024 Heparin assay Maryann farah [facility] Start: 10-21-2024 Mri brain brain stem w/o contrast material Trey Morse PA-C Work Phone: Start: 10-21-2024 Glucose measurement, blood Dillan Guzman MD Work Phone: Start: 10-21-2024 Radiologic exam ches t single view Keara D Dye [employer]-[facility] Work Phone: Start: 10-21-2024 End: 10-21-2024 Glucose measurement, blood Dillan Guzman MD Work Phone: Start: 10-21-2024 Oscillating positive expiratory pressure (flutter) physiotherapy Francie Grier [employer] Work Phone: Start: 10-20-2024 End: 10-21-2024 Calcium ionized Francie Grier [employer] Work Phone: Start: 10-20-2024 Glucose measurement, blood Dillan Guzman MD Work Phone: Start: 10-20-2024 Glucose measurement, blood Dillan Guzman MD Work Phone: Start: 10-20-2024 Radiologic exam ches t single view Trey Morse PA-C Work Phone: Start: 10-20-2024 Glucose measurement, blood Dillan Guzman MD Work Phone: Start: 10-20-2024 Drug screen quantita tive vancomycin Maryann Douglas [facility] Start: 10-20-2024 Glucose measurement, blood Dillan Guzman MD Work Phone: Start: 10-20-2024 Ct head/brain w/o co ntrast material Chiquita Humphrey PA-C Work Phone: Start: 10-20-2024 Oscillating positive expiratory pressure (flutter) physiotherapy Francie Grier [employer] Work Phone: Start: 10-20-2024 Calcium ionized Francie Grier [employer] Work Phone: Start: 10-19-2024 Glucose measurement, blood Dillan Guzman MD Work Phone: Start: 10-19-2024 Creatinine blood Shaheen Humphrey PA-C Work Phone: Start: 10-19-2024 Glucose measurement, blood Dillan Guzman MD Work Phone: Start: 10-19-2024 Gases blood ph direc t everardo xcpt pulse oximitry Jenn Redman DO Start: 10-19-2024 Glucose measurement, blood Dillan Guzman MD Work Phone: Start: 10-19-2024 Radiologic exam ches t single view Jenn Redman DO Start: 10-19-2024 Gases blood ph direc t everardo xcpt pulse oximitry Jenn Redman DO Start: 10-19-2024 Glucose measurement, blood Dillan Guzman MD Work Phone: Start: 10-19-2024 Oscillating positive expiratory pressure (flutter) physiotherapy Francie Grier [employer] Work Phone: Start: 10-19-2024 Calcium ionized Francie Grier [employer] Work Phone: Start: 10-18-2024 Glucose measurement, blood Dillan Guzman MD Work Phone: Start: 10-18-2024 Radex foot complete minimum 3 views Shweta HYLTON-C Work Phone: Start: 10-18-2024 Glucose measurement, blood Dillan Guzman MD Work Phone: Start: 10-18-2024 Drug screen quantita tive vancomycin Sangita Juarez Valenzuela [facility] Start: 10-18-2024 Blood count platelet automated Chiquita Humphrey PA-C Work Phone: Start: 10-18-2024 Glucose measurement, blood Dillan Guzman MD Work Phone: Start: 10-18-2024 Iadna s aureus ampli fied probe tq Amelia L Ciupak PA-C Start: 10-18-2024 Radiologic exam ches t single view Shweta HYLTON-C Work Phone: Start: 10-18-2024 Ct head/brain w/o co ntrast material Shweta HYLTON-C Work Phone: Start: 10-18-2024 Sodium serum plasma or whole blood Shweta HYLTON-C Work Phone: Start: 10-18-2024 Glucose measurement, blood Dillan Guzman MD Work Phone: Start: 10-18-2024 Gases blood ph direc t everardo xcpt pulse oximitry Jenn Redman DO Start: 10-18-2024 Electrolyte panel Victo roshni L Kam PA-C Work Phone: Start: 10-18-2024 Oscillating positive expiratory pressure (flutter) physiotherapy Francie Grier [employer] Work Phone: Start: 10-18-2024 Physiotherapy of chest Francie Grier [employer] Work Phone: Start: 10-18-2024 Glucose measurement, blood Dillan Guzman MD Work Phone: Start: 10-18-2024 Calcium ionized Francie Grier MEDICAL RECORDS AUDITOR-BEET TOPPER Work Phone: Start: 10-17-2024 Glucose measurement, blood Dillan Guzman MD Work Phone: Start: 10-17-2024 Sodium serum plasma or whole blood Shweta Pizarro [place] PA-C Work Phone: Start: 10-17-2024 Creatinine blood Kelli n Juarez [place] PA-C Work Phone: Start: 10-17-2024 Electrolyte panel Victo roshni L Kam PA-C Work Phone: Start: 10-17-2024 Gases blood ph direc t everardo xcpt pulse oximitry Chiquita Humphrey PA-C Work Phone: Start: 10-17-2024 Radiologic exam ches t single view Chiquita L Kam PA-C Work Phone: Start: 10-17-2024 Glucose measurement, blood Dillan Guzman MD Work Phone: Start: 10-17-2024 Transthoracic echocardiography Kristen Ramon MD Work Phone: Start: 10-17-2024 Glucose measurement, blood Dillan Guzman MD Work Phone: Start: 10-17-2024 Drug screen quantita tive vancomycin Miriam Denson MD Work Phone: Start: 10-17-2024 Ct head/brain w/o co ntrast material Miriam Denson MD Work Phone: Start: 10-17-2024 EXTRA MICRO Francie dukes MEDICAL RECORDS AUDITOR-BEET TOPPER Work Phone: Start: 10-17-2024 URINALYSIS REFLEX TO CULTURE Francie Grier MEDICAL RECORDS AUDITOR-BEET TOPPER Work Phone: Start: 10-17-2024 Assay of lactate Francie Grier MEDICAL RECORDS AUDITOR-BEET TOPPER Work Phone: Start: 10-17-2024 End: 10-17-2024 Culture bacterial blood aerobic w/id isolates Francie Grier MEDICAL RECORDS AUDITOR-BEET TOPPER Work Phone: Start: 10-17-2024 Oscillating positive expiratory pressure (flutter) physiotherapy Francie Grier MEDICAL RECORDS AUDITOR-BEET TOPPER Work Phone: Start: 10-17-2024 Physiotherapy of chest Francie Grier MEDICAL RECORDS AUDITOR-BEET TOPPER Work Phone: Start: 10-16-2024 Physiotherapy of chest Francie Grier MEDICAL RECORDS AUDITOR-BEET TOPPER Work Phone: Start: 10-16-2024 Radiologic exam ches t single view Francie Grier MEDICAL RECORDS AUDITOR-BEET TOPPER Work Phone: Start: 10-16-2024 Artl cathj/cannulj mntr/transfusion spx prq Francie Grier MEDICAL RECORDS AUDITOR-BEET TOPPER Work Phone: Start: 10-16-2024 Glucose measurement, blood Dillan Guzman MD Work Phone: Start: 10-16-2024 Calcium ionized Francie Grier MEDICAL RECORDS AUDITOR-BEET TOPPER Work Phone: Start: 10-16-2024 Lipid panel Francie dukes MEDICAL RECORDS AUDITOR-BEET TOPPER Work Phone: Start: 10-16-2024 Ecg routine ecg w/le ast 12 lds trcg only w/o i&r Francie Grier MEDICAL RECORDS AUDITOR-BEET TOPPER Work Phone: Start: 10-16-2024 EXTRA MICRO Kristen Ramon MD Work Phone: Start: 10-16-2024 URINALYSIS REFLEX TO CULTURE Kristen Ramon MD Work Phone: Start: 10-16-2024 Urnls dip stick/tabl et reagent auto microscopy Kristen Ramon MD Work Phone: Start: 10-16-2024 ABORH TYPE RECONFIRMATION Cynthia Hallhue DO Work Phone: Start: 10-16-2024 Ecg routine ecg w/le ast 12 lds trcg only w/o i&r Miriam Denson MD Work Phone: Start: 10-16-2024 End: 10-16-2024 Ct angiography head w/contrast/noncontrast Miriam Denson MD Work Phone: Start: 10-16-2024 Antibody screen DILLAN BIT TAR Comment on above: Performed By: #### X M #### [facility] ([facility]) [address] [place] [id number] Start: 10-16-2024 CBC AND ELECTRONIC DIFF Miriam [...] Work Phone: Start: 10-11-2024 Gram stain microscopy Peña Reese MD Work Phone: Start: 10-11-2024 End: [...] Work Phone: Start: 08-22-2024 Gram stain microscopy D concha Reese MD Work Phone: Start: 08-22-2024 End: 08-22-2024 Microbial culture, routine Dr. Bernabe rodney MD Work Phone: Start: 08-02-2024 Prostate specific an tigen measurement Dr. Bernabe Reese MD Work Phone: Comment on above: This test was perfor med using the TPSA assay method for the[employer] chemistry system. Values obtained with differentassay methods [...] contrast Dr. Bernabe Reese Work Phone: Start: 11-01-2022 US scan of thyroid Dr. Bernabe Reese Work Phone: Start: 10-26-2021 US scan of thyroid Start: 02-10-2018 EKG 12-LEAD VESELIN DI MITROV Start: 02-10-2018 Blood count complete auto&auto difrntl wbc VESELIN ENRRIQUE Start: 02-10-2018 BRAIN NATRIURETIC PEPTIDE VESELIN ENRRIQUE Start: 02-10-2018 Comprehensive metabo lic panel VESELIN ENRRIQUE Start: 02-10-2018 TROPONIN VESELIN DI MITROV Start: 02-10-2018 Urnls dip stick/tabl et rgnt auto w/o microscopy VESELIN ENRRIQUE Bacteria identified in Blood by Culture Dr. 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 Bernabe subramanian Work Phone: Viral antigen assay Dr. Bernabe Reese Work Phone: Plan of Treatment Date Care Activity Detail Author Start: 10-16-2029 Lipid panel [facility] Start: 10-29-2025 Finding of potassium level (finding) [facility] Start: 02-18-2025 Influenza vaccination [facility] Start: 11-06-2024 End: 10-28-2025 CT Head WO contrast [facility] Start: 10-16-2024 Patient discharge [facility] Start: 10-16-2024 Bedrest [facility] Start: 10-16-2024 Cardiac monitoring [facility] Start: 10-16-2024 Catheterization of vein [facility] Start: 10-16-2024 Elevation of head of bed [facility] Start: 10-16-2024 Exercises [facility] Start: 10-16-2024 Notification of physician [facility] Start: 10-16-2024 End: 10-16-2024 [facility] Start: 10-16-2024 Vital signs measurements [facility] Start: 10-16-2024 Continuous pulse oximetry [facility] Start: 10-16-2024 Oxygen therapy [facility] Start: 10-16-2024 End: 10-16-2024 Telemedicine consultation with patient [facility] Start: 10-16-2024 End: 10-16-2024 Tobacco use cessation education [facility] Start: 10-16-2024 [facility] Start: 10-12-2024 Consultation [facility] Start: 10-11-2024 Incentive spirometry [facility] Start: 10-11-2024 Referral to service [facility] Start: 10-11-2024 [facility] Start: 10-10-2024 [facility] Start: 10-10-2024 Wound care [facility] Start: 2024 Dual pressure spontaneous ventilation support [facility] Start: 2024 Application of intermittent pneumatic compression device [facility] Start: 2024 Assessment of risk of venous thromboembolism [facility] Start: 2024 Care regimes management [facility] Start: 2024 Consultation for treatment [facility] Start: 2024 Insertion of catheter into peripheral vein [facility] Start: 2024 Notification of physician [facility] Start: 2024 Providing care according to standard [facility] Start: 2024 Provision of activity privileges [facility] Start: 2024 Referral to occupational therapist [facility] Start: 2024 Referral to bark grinder [facility] Start: 2024 Referral to service [facility] Start: 2024 End: 2024 [facility] Start: 2024 Following clinical pathway protocol [facility] Start: 2024 Verification routine [facility] Start: 2024 Admission procedure [facility] Start: 2024 Hospital admission, emergency, from emergency room, medical nature [facility] Start: 2024 Source specific culture [facility] Start: 2024 Anaerobic Culture Anaerobic Culture [facility] Start: 2024 Bacteria identified in Blood by Culture Blood Culture [facility] Start: 2024 Microscopic observation [Identifier] in Unspecified specimen by Gram stain [facility] Start: 2024 Wound Culture Wound Culture [facility] Start: 2024 End: 2024 [facility] Start: 2024 Inhalation therapy procedure [facility] Start: 2024 Patient referral to dietitian [facility] Start: 05-24-2023 Blood chemistry [facility] Start: 05-23-2023 Patient discharge [facility] Start: 05-23-2023 Patient referral to dietitian [facility] Start: 05-21-2023 Referral to bark grinder [facility] Start: 05-21-2023 Continuous positive airway pressure ventilation treatment [facility] Start: 05-21-2023 Following clinical pathway protocol [facility] Start: 05-21-2023 Ambulation without limitation [facility] Start: 05-21-2023 Assessment of risk of venous thromboembolism [facility] Start: 05-21-2023 Care regimes management [facility] Start: 05-21-2023 Consultation [facility] Start: 05-21-2023 Incentive spirometry [facility] Start: 05-21-2023 Insertion of catheter into peripheral vein [facility] Start: 05-21-2023 Notification of physician [facility] Start: 05-21-2023 Oxygen therapy [facility] Start: 05-21-2023 Providing care according to standard [facility] Start: 05-21-2023 Referral to occupational therapist [facility] Start: 05-21-2023 Referral to service [facility] Start: 05-21-2023 [facility] Start: 05-21-2023 Blood culture [facility] Start: 05-21-2023 Verification routine [facility] Start: 05-21-2023 Admission procedure [facility] Start: 05-21-2023 Bacteria identified in Blood by Culture Blood Culture [facility] Start: 05-21-2023 Blood culture [facility] Start: 12-03-2022 Patient discharge [facility] Start: 12-02-2022 [facility] Start: 11-30-2022 End: 12-01-2022 [facility] Start: 11-30-2022 Care planning and problem solving actions [facility] Start: 11-30-2022 End: 11-30-2022 Blood culture [facility] Start: 11-29-2022 Consultation [facility] Start: 11-29-2022 Care planning and problem solving actions [facility] Start: 11-29-2022 [facility] Start: 11-28-2022 End: 11-29-2022 [facility] Start: 11-28-2022 Care planning and problem solving actions [facility] Start: 11-28-2022 Continuous pulse oximetry [facility] Start: 11-28-2022 Following clinical pathway protocol [facility] Start: 11-28-2022 Assessment of risk of venous thromboembolism [facility] Start: 11-28-2022 Care regimes management [facility] Start: 11-28-2022 Insertion of catheter into peripheral vein [facility] Start: 11-28-2022 Measuring intake and output [facility] Start: 11-28-2022 Oxygen therapy [facility] Start: 11-28-2022 Providing care according to standard [facility] Start: 11-28-2022 Provision of activity privileges [facility] Start: 11-28-2022 Referral to occupational therapist [facility] Start: 11-28-2022 Referral to service [facility] Start: 11-28-2022 Admission procedure [facility] Start: 11-28-2022 Dual pressure spontaneous ventilation support [facility] Start: 11-28-2022 Patient referral to dietitian [facility] Start: 11-28-2022 [facility] Start: 06-20-2022 ADVANCE DIRECTIVE DISCUSSION ADVANCE DIRECTIVE DISCUSSION [facility] Start: 06-20-2022 DEPRESSION ASSESSMENT DEPRESSION ASSESSMENT [facility] Start: 02-18-2022 Influenza vaccination INFLUENZA (#1) [facility] Start: 10-10-2019 PNEUMOCOCCAL: 65+ (1 - PCV) PNEUMOCOCCAL: 65+ (1 - PCV) [facility] Start: 2014 [facility] Start: 2009 PROSTATE CANCER SCREENING DISCUSSION PROSTATE CANCER SCREENING DISCUSSION [facility] Start: 2004 SHINGRIX VACCINE (1 of 2) SHINGRIX VACCINE (1 of 2) [facility] Start: 10-10-1999 COLOGUARD (FIT-DNA) COLOGUARD (FIT-DNA) [facility] Start: 10-10-1999 Colonoscopy COLONOSCOPY [facility] Start: 10-10-1999 COLORECTAL CANCER SCREENING COLORECTAL CANCER SCREENING [facility] Start: 10-10-[address] COLONOGRAPHY [facility] Start: 10-10-1999 FECAL OCCULT BLOOD FECAL OCCULT BLOOD [facility] Start: 10-10-1999 Screening for malignant neoplasm of colon [facility] Start: 10-10-1999 SIGMOIDOSCOPY SIGMOIDOSCOPY [facility] Start: 1973 Pneumococcal vaccination [facility] Start: 1973 Third diphtheria, tetanus and acellular pertussis (DTaP) vaccination [facility] Start: 1973 Urine microalbumin profile DTAP,TDAP,TD (1 - Tdap) [facility] Start: 1973 [facility] Start: 1972 Hepatitis B surface antibody level LDL CHOLESTEROL [facility] Start: 1972 HEPATITIS C SCREENING HEPATITIS C SCREENING [facility] Start: 1964 3 comp foot exam [facility]: 1964 Hepatitis B screening URINE ALBUMIN:CREATININE RATIO [facility] Start: 1964 Hepatitis C antibody, confirmatory test DILATED RETINAL EXAM [facility] Start: 10-10-1959 Hemoglobin A1c/Hemoglobin.total in Blood HBA1C [facility] Start: 10-10-1959 [facility] Start: 04-10-1955 COVID-19 VACCINE (#1) COVID-19 VACCINE (#1) [facility] Start: 1954 ABDOMINAL AORTIC ANEURYSM SCREENING ABDOMINAL AORTIC ANEURYSM SCREENING [facility] Start: 1954 Hepatitis C screening [facility] Start: 1954 Tetanus vaccination [facility] Bacteria identified in Blood by Culture Blood Culture [facility] Bacteria identified in Unspecified specimen by Anaerobe culture [facility] Patient Education [facility] Work Phone: Patient referral [facility] Work Phone: End: 10-24-2024 [facility]24 VANCOMYCIN LEVEL, TROUGH (PRE DRUG LEVEL) [facility] Wound microscopy, cu lture and sensitivities [facility] Payers Date Payer Category Payer Medicare (Managed Care) [id number]. [id number] 2024 Medicare [id number] 2023 Self-pay [id number] 2023 Medicare [id number] 2019 Unknown [id number] 2019 Private Health Insurance [employer]ET[employer] HARRISON PPO [id number] 2019-Present [phone] [address] [place] [address] PPO [id number] 2014 Private Health Insurance [id number] 1954 Unknown [id number] 2.16.840.1.746747.3.579.2. 732 1954 Unknown [id number] 2.16.840.1.423406.3.579.2. 594 Unknown [id number] 2.16.840.1.218162.3.579.2. 462 Unknown [id number] 2.16.840.1.763699.3.579.2. 462 Unknown [id number] 2.16.840.1.968139.3.579.2. 462 Unknown [id number] 2.16.840.1.036205.3.579.2. 462 Unknown [id number] 2.16.840.1.363124.3.579.2. 462 Unknown [id number] 2.16.840.1.808700.3.579.2. 462 Unknown [id number] 2.16.840.1.773780.3.579.2. 462 Unknown [id number] 2.16.840.1.139047.3.579.2. 462 Unknown [id number] 2.16.840.1.966516.3.579.2. 462 Unknown [id number] 2.16.840.1.912111.3.579.2. 462 Unknown [id number] 2.16.840.1.801689.3.579.2. 462 Unknown [id number] 2.16.840.1.364365.3.579.2. 462 Unknown [id number] 2.16.840.1.442779.3.579.2. 462 Unknown [id number] 2.16.840.1.710475.3.579.2. 462 Unknown [id number] 2.16.840.1.451204.3.579.2. 462 Unknown [id number] 2.16.840.1.970364.3.579.2. 462 Unknown [id number] 2.16.840.1.086445.3.579.2. 462 Unknown [id number] 2.16840.1.330189.3.579.2. 462 Unknown [id number] 2.16840.1.818040.3.579.2. 462 Unknown [id number] 2.840.1.816327.3.579.2. 462 Unknown [id number] 2.840.1.359062.3.579.2. 462 Unknown [id number] 2.840.1.499634.3.579.2. 462 Unknown [id number] 2.840.1.980012.3.579.2. 462 Unknown [id number] 2.840.1.514226.3.579.2. 462 Unknown [id number] 2.840.1.435696.3.579.2. 462 Unknown [id number] 2.840.1.904854.3.579.2. 462 Unknown [id number] 2.840.1.370359.3.579.2. 462 Unknown [id number] 2.840.1.177714.3.579.2. 462 Unknown [id number] 2.840.1.841934.3.579.2. 462 Unknown [id number] 2.840.1.840154.3.579.2. 462 Unknown [id number] 2.840.1.750337.3.579.2. 462 Social History Date Type Detail Facility Start: 05-13-2021 End: 07-11-2023 Tobacco smoking status NHIS Unknown if ever smoked [facility] Start: 09-17-2014 None [facility] Start: 10-29-2014 With Family [facility] Start: 10-01-2020 Non-smoker [facility] Start: 1955 Sex Assigned At Male [facility] Start: 03-16-2017 End: 07-11-2023 Tobacco smoking status NHIS Ex-smoker [facility] History of tobacco use Current smoker [facility] History of tobacco use Cigarette Smoker C [facility] Start: 03-16-2017 End: 10-24-2024 Tobacco use and exposure Smokeless tobacco non-user [facility] Start: 04-05-2017 Alcohol intake Current non-dr manager mobility of alcohol (finding) [facility] Start: 03-16-2017 Tobacco Comment smoked in teen years [facility] Start: 1955 Sex Assigned At Not on file C [facility] Start: 09-01-2024 End: 10-16-2024 Sex Male (finding) [facility] Start: 09-25-2024 End: 2024 Tobacco smoking status NHIS Never smoked tobacco (finding) [facility] Start: 10-17-2024 End: 10-24-2024 History of Social function [facility] Start: 10-17-2024 End: 10-24-2024 Tobacco use panel [facility] Medical Equipment Procedure Code Equipment Code Equipment Origin al Text Equipment Identifier Dates External fixation, tibia ([id number]) ()[id number] FDA Start: 10-15-2024 External fixation, tibia ([id number]) ()[id number] FDA Start: 10-15-2024 External fixation, tibia ([id number]) ()[id number] FDA Start: 10-15-2024 External fixation, tibia ([id number]) ()[id number] FDA Start: 10-15-2024 External fixation, tibia ([id number]) ()[id number] FDA Start: 10-15-2024 External fixation, tibia ()[id number] FDA Start: 10-15-2024 External fixation, tibia ([id number]) ()[id number] FDA Start: 10-15-2024 External fixation, tibia ([id number]) ()[id number] FDA Start: 10-15-2024 External fixation, tibia ()[id number] FDA Start: 10-15-2024 External fixation, tibia ()[id number] FDA Start: 10-15-2024 Debridement, wound DRESSING,SURG ICEL [...] do you have serious difficulty hearing No [facility] 10-24-2024 Are you blind, or do you have serious difficulty seeing, even when wearing glasses No [facility] 10-24-2024 Do you have serious difficulty walking or climbing stairs Yes [facility] 10-24-2024 Do you have difficul ty dressing or bathing Yes [facility] 10-24-2024 Because of a physica l, mental, or emotional condition, do you have difficulty doing errands alone such as visiting a physician's office or shopping Yes [facility] 10-16-2024 Functional status Unable to Assess;Post O p [facility] Work Phone: 10-16-2024 Functional status Bedrest [facility] Work Phone: 05-23-2023 Functional status Chair [facility] Work Phone: 12-03-2022 Functional status Ambulates [facility] Work Phone: Mental Status Date Assessment Result Facility 10-24-2024 Because of a physica l, mental, or emotional condition, do you have serious difficulty concentrating, remembering, or making decisions Yes [facility] 10-16-2024 Cognitive function Voice/Name [facility] Work Phone: 05-23-2023 Cognitive function Voice/Name [facility] Work Phone: 05-22-2023 Cognitive function Appropriate;C ooperativ e [facility] Work Phone: 12-03-2022 Cognitive function Voice/Name [facility] Work Phone: Clinical Notes 11-28-2022 to 12-11-2024 Note Date & Type Note Facility 12-11-2024 Progress note Note Date/Time December 11, 2024 10:48am [facility] [address] [place] [address] Progress Note - Wound Care 12/11/24 1046 MR#: [id number] Acct: [id number] Name: LANI ZARAGOZA Rep #:[id number] : [...] surgical shoe with heel offloading. 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 Patient has no other complaints. [...] Post-Debridement Measurements and Additional Note: Post-Debridement Measurements/Treatment BUDDY - Nurse 1 - General Ulcer Assessment Start: 11/20/24 10:16 Freq: Status: Active Protocol: MARGY Activity Type Activity Date Activity User E-sign Co-sign Detail Recorded Client Recorded Date Recorded By Document 11/20/24 10:17 KW [id number] 11/20/24 10:35 KW Document 11/27/24 09:35 KW [id number] 11/27/24 09:41 KW Document 12/04/24 10:12 KW [id number] 12/04/24 10:32 KW Document 12/11/24 10:06 KW [id number] 12/11/24 10:28 KW 11/20/24 11/27/24 12/04/24 10:17 09:35 10:12 - Today's Visit Information Type of service Follow-up Visit Follow-up Visit Follow-up Visit (Physician/BEET TOPPER (Physician/BEET TOPPER (Physician/BEET TOPPER ) ) ) Arrival Mode Wheelchair Wheelchair [...] Visit Information Type of service Follow-up Visit (Physician/BEET TOPPER ) Arrival Mode Wheelchair Transfer Assistance Shira [...] Date Recorded By Document 11/20/24 10:17 KW [id number] 11/20/24 10:35 KW Document 11/27/24 09:35 KW [id number] 11/27/24 09:41 KW Document 12/04/24 10:12 KW [id number] 12/04/24 10:32 KW Document 12/11/24 10:06 KW [id number] 12/11/24 10:28 KW 11/20/24 11/27/24 12/04/24 10:17 [...] Attached -Granulation Amt Large (67-100%) -Granulation Quality Pale,Gonzalez -Slough/Fibrin -Necrosis Amt Small (1-33%) -Necrotic Tissue [...] Recorded Date Recorded By Document 11/20/24 10:47 [id number] 11/20/24 10:49 Document 11/27/24 10:10 [facility] [id number] 11/27/24 10:20 [facility] Document 12/04/24 10:36 [id number] 12/04/24 10:47 11/20/24 11/27/24 12/04/24 10:47 10:10 [...] -Expiration Date 02/18/29 03/20/29 -Product Lot Number [id number] -Percent Used 100 100 -Lot number of Saline Used [id number] -Bleeding Controlled with Pressure Pressure Pressure -Treatment [...] Recorded Date Recorded By Document 11/20/24 11:12 [facility] [id number] 11/20/24 11:12 BM Document 11/27/24 10:20 BMF [id number] 11/27/24 10:21 BM Document 12/04/24 10:57 DS [id number] 12/04/24 11:53 DS 11/20/24 11/27/24 12/04/24 11:12 [...] Patient Pain Free? Yes Yes Yes - Visit Discharge Discharge Condition Stable Stable Stable Ambulatory Status Wheelchair Wheelchair Wheelchair Transportation ecf [facility] Facility Type [facility] Care [facility] Facility Assessment/Plan Assessment/Plan (1) Non-pressure [...] Cosigner Signature (if applicable): CC: ~ Signed [facility] Work Phone: 1(891) 994-106406-17-2025 Progress note Author Ramon Garcia [facility] Note Date/Time December 04, 2024 10:5 8am [facility] [address] [place] [address] Progress Note - Wound Care 12/04/24 1057 MR#: [id number] Acct: [id number] Name: LANI ZARAGOZA COURTNEY Rep #:[id number] : 1955 69 From: [...] surgical shoe with heel offloading. 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 Patient has no other complaints. [...] Start: 11/20/24 10:16 Freq: Status: Active Protocol: .YOUNG Activity Type Activity Date Activity User E-sign Co-sign Detail Recorded Client Recorded Date Recorded By Document 11/20/24 10:17 KW [id number] 11/20/24 10:35 KW Document 11/27/24 09:35 KW [id number] 11/27/24 09:41 KW Document 12/04/24 10:12 KW [id number] 12/04/24 10:32 KW 11/20/24 11/27/24 12/04/24 10:17 09:35 10:12 - Today's Visit Information Type of service Follow-up Visit Follow-up Visit Follow-up Visit (Physician/BEET TOPPER (Physician/BEET TOPPER (Physician/BEET TOPPER ) ) ) Arrival Mode Wheelchair Wheelchair [...] Pain Free? Yes Yes Yes WC - Nurse 1 - General Ulcer Measurement Start: 11/20/24 10:16 Freq: Status: Active Protocol: Activity Type Activity Date Activity User E-sign Co-sign Detail Recorded Client Recorded Date Recorded By Document 11/20/24 10:17 KW [id number] 11/20/24 10:35 KW Document 11/27/24 09:35 KW [id number] 11/27/24 09:41 KW Document 12/04/24 10:12 KW [id number] 12/04/24 10:32 KW 11/20/24 11/27/24 12/04/24 10:17 [...] Recorded Date Recorded By Document 11/20/24 10:47 [id number] 11/20/24 10:49 Document 11/27/24 10:10 [facility] [id number] 11/27/24 10:20 [facility] Document 12/04/24 10:36 [id number] 12/04/24 10:47 11/20/24 11/27/24 12/04/24 10:47 10:10 [...] -Expiration Date 02/18/29 03/20/29 -Product Lot Number [id number] -Percent Used 100 100 -Lot number of Saline Used [id number] -Bleeding Controlled with Pressure Pressure Pressure -Treatment [...] Pain Free? Yes Yes Yes WC - Nurse 3 - General Ulcer D/C NN Start: 11/20/24 10:16 Freq: Status: Active Protocol: Activity Type Activity Date Activity User E-sign Co-sign Detail Recorded Client Recorded Date Recorded By Document 11/20/24 11:12 [facility] [id number] 11/20/24 11:12 BM Document 11/27/24 10:20 BM [id number] 11/27/24 10:21 BM 11/20/24 11/27/24 11:12 10:20 Wound Care Center [...] Wheelchair Wheelchair Transportation ecf F Facility Type [facility] Facility Assessment/Plan Assessment/Plan (1) Non-pressure [...] Cosigner Signature (if applicable): CC: ~ Signed [facility] Work Phone: 1(407) 496-790206-13-2025 Radiology Diagnostic study note [facility] Imaging Services [address] [place], [place] [address] Brain/Head without Contrast MR#: [id number] Acct: [id number] Name: LANI ZARAGOZA Rep #: [id number] : 1955 M 69 From: Francis Crawford MD PCP: Dr. Bernabe Reese MD Status: RE G CLI Study:Brain/Head without Contrast Date of Exa m: 11/29/24 Exam# [id number] Ordering Dr: Chris Salgado MD PROCEDURE: BRAIN/HEAD [...] Complete resolution of midline shift. Reading Location: [place] [address] CC: Dr. Bernabe Reese MD; Kelli Salgado MD ~ Client Support Associate: Signed [facility]06-10-2025 Progress note Author Ramon Garcia [facility] Note Date/Time November 27, 2024 10:1 8am [facility] [address] [place] [address] Progress Note - Wound Care 11/27/24 1017 MR#: [id number] Acct: [id number] Name: LANI ZARAGOZA Rep #:[id number] : [...] surgical shoe with heel offloading. 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 Patient has no other [...] Date Recorded By Document 11/20/24 10:17 KW [id number] 11/20/24 10:35 KW Document 11/27/24 09:35 KW [id number] 11/27/24 09:41 KW 11/20/24 11/27/24 10:17 09:35 WC - Today's Visit Information Type of service Follow-up Visit Follow-up Visit (Physician/BEET TOPPER (Physician/BEET TOPPER ) ) Arrival Mode Wheelchair Wheelchair Patient [...] Date Recorded By Document 11/20/24 10:17 KW [id number] 11/20/24 10:35 KW Document 11/27/24 09:35 KW [id number] 11/27/24 09:41 KW 11/20/24 11/27/24 10:17 09:35 [...] Recorded Date Recorded By Document 11/20/24 10:47 [id number] 11/20/24 10:49 11/20/24 10:47 Wound Center Nurse [...] Recorded Date Recorded By Document 11/20/24 11:12 [facility] [id number] 11/20/24 11:12 [facility] 11/20/24 11:12 Wound Care Center Nurse [...] Ambulatory Status Wheelchair Transportation ecf Facility Type [facility] Facility Assessment/Plan Assessment/Plan (1) Acute osteomyelitis [...] Cosigner Signature (if applicable): CC: ~ Signed [facility] Work Phone: 1(103) 683-237106-03-2025 Progress note Author Ramon Garcia [facility] Note Date/Time November 20, 2024 10:50 am [facility] [address] [place] [address] Progress Note - Wound Care 11/20/24 1049 MR#: [id number] Acct: [id number] Name: LANI ZARAGOZA Rep #:[id number] : [...] surgical shoe with heel offloading. 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 Patient has no other complaints. [...] Date Recorded By Document 11/20/24 10:17 KW [id number] 11/20/24 10:35 11/20/24 10:17 WC - Today's Visit Information Type of service Follow-up Visit (Physician/BEET TOPPER ) Arrival Mode Wheelchair Patient Identification Verified [...] Date Recorded By Document 11/20/24 10:17 SIENNA [id number] 11/20/24 10:35 11/20/24 10:17 Wound Center Nurse [...] Cleansing No -Anesthetic Used 5% Lidocaine Gel WC - Nurse 2 - General Ulcer CM Notes Start: 11/20/24 10:16 Freq: Status: Active Protocol: Activity Type Activity Date Activity User E-sign Co-sign Detail Recorded Client Recorded Date Recorded By Document 11/20/24 10:47 ÁNGEL [id number] 11/20/24 10:49 ÁNGEL 11/20/24 10:47 Wound Center Nurse 2 -Time [...] Cosigner Signature (if applicable): CC: ~ Signed [facility] Work Phone: 1(787) 732-657305-27-2025 Progress note Author Ramon Garcia [facility] Note Date/Time November 13, 2024 11:12 am [facility] [address] [place] [address] Progress Note - Wound Care 11/13/24 1104 MR#: [id number] Acct: [id number] Name: LANI ZARAGOZA Rep #:[id number] : [...] surgical shoe with heel offloading. 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 Patient has no other complaints. [...] Start: 11/06/24 10:49 Freq: Status: Active Protocol: .[employer] Activity Type Activity Date Activity User E-sign Co-sign Detail Recorded Client Recorded Date Recorded By Document 11/06/24 11:09 KW [id number] 11/06/24 11:11 KW Document 11/13/24 10:23 KW [id number] 11/13/24 10:35 KW 11/06/24 11/13/24 11:09 10:23 - Today's Visit Information Type of service Follow-up Visit Follow-up Visit (Physician/BEET TOPPER (Physician/BEET TOPPER ) ) Arrival Mode Walker Wheelchair Patient [...] Date Recorded By Document 11/06/24 11:09 KW [id number] 11/06/24 11:11 KW Document 11/13/24 10:23 KW [id number] 11/13/24 10:35 KW 11/06/24 11/13/24 11:09 10:23 [...] not measured in during nurse 1 nurse 1dr in room - Nurse 2 - General Ulcer CM Notes Start: 11/06/24 10:49 Freq: Status: Active Protocol: Activity Type Activity Date Activity User E-sign Co-sign Detail Recorded Client Recorded Date Recorded By Document 11/06/24 10:53 [id number] 11/06/24 10:54 Document 11/13/24 11:03 [id number] 11/13/24 11:04 JF 11/06/24 11/13/24 10:53 11:03 Wound Center Nurse [...] Date Recorded By Document 11/06/24 11:11 KW [id number] 11/06/24 11:12 KW 11/06/24 11:11 Wound Care [...] Cosigner Signature (if applicable): CC: ~ Signed [facility] Work Phone: 1(849) 392-601105-27-2025 Progress note [facility] [address] [place] [address] Progress Note - Wound Care 11/13/24 1104 MR#: [id number] Acct: [id number] Name: LANI ZARAGOZA Rep #:[id number] : [...] surgical shoe with heel offloading. 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 Patient has no other complaints. [...] Start: 11/06/24 10:49 Freq: Status: Active Protocol: MARGY Activity Type Activity Date Activity User E-sign Co-sign Detail Recorded Client Recorded Date Recorded By Document 11/06/24 11:09 KW [id number] 11/06/24 11:11 KW Document 11/13/24 10:23 KW [id number] 11/13/24 10:35 KW 11/06/24 11/13/24 11:09 10:23 - Today's Visit Information Type of service Follow-up Visit Follow-up Visit (Physician/BEET TOPPER (Physician/BEET TOPPER ) ) Arrival Mode Walker Wheelchair Patient [...] Date Recorded By Document 11/06/24 11:09 KW [id number] 11/06/24 11:11 KW Document 11/13/24 10:23 KW [id number] 11/13/24 10:35 KW 11/06/24 11/13/24 11:09 10:23 [...] nurse [address] Mike in room - Nurse 2 - General Ulcer CM Notes Start: 11/06/24 10:49 Freq: Status: Active Protocol: Activity Type Activity Date Activity User E-sign Co-sign Detail Recorded Client Recorded Date Recorded By Document 11/06/24 10:53 [id number] 11/06/24 10:54 Document 11/13/24 11:03 [id number] 11/13/24 11:04 JF 11/06/24 11/13/24 10:53 11:03 Wound Center Nurse [...] Recorded Date Recorded By Document 11/06/24 11:11 [id number] 11/06/24 11:12 11/06/24 11:11 Wound Care Center Nurse 3 [...] Cosigner Signature (if applicable): CC: ~ Signed [facility]05-20-2025 Progress note Author Ramon Garcia [facility] Note Date/Time November 06, 2024 10:58 am [facility] [address] [place] [address] Progress Note - Wound Care 11/06/24 1054 MR#: [id number] Acct: [id number] Name: LANI ZARAGOZA Rep #:[id number] : 1955 69 From: Ramon Garcia DPM PCP: Dr. Bernabe Reese MD Status:MT E RCR Location: History of Present Illness Date of Service: 11/06/24 Chief Complaint: Right heel wound History of Wound: Patient has chronic wound to right heel in setting of diabeticneuropathy, poorly controlled diabetes, peripheral neuropathy, peripheral arterial disease, iron deficiency, chronic chronic anticoagulation. Patient denies constitutional symptoms. Patient ambulates in surgical shoe with heel offloading. 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 Patient has no other complaints. Subjective Subjective Patient is 3 weeks postop from application of right lower extremity external fixation with wound debridement down to bone. Patient was placed on PICC line with IV antibiotics per infectious disease. Patient had a complication postoperatively and suffered a stroke and was ultimately transferred to [facility] which is why I have not [...] measurements document nursing notes. Will plan for [facility]'s wet-to-dry dressing to the wound site. Plan [...] Cosigner Signature (if applicable): CC: ~ Signed [facility] Work Phone: 1(844) 541-281605-20-2025 Progress note [facility] [address] [place] [address] Progress Note - Wound Care 11/06/24 1054 MR#: [id number] Acct: [id number] Name: LANI ZARAGOZA Rep #:[id number] : 1955 69 From: Raomn Garcia DPM PCP: Dr. Bernabe Reese MD Status:MT E RCR Location: History of Present Illness Date of Service: 11/06/24 Chief Complaint: Right heel wound History of Wound: Patient has chronic wound to right heel in setting of diabeticneuropathy, poorly controlled diabetes, peripheral neuropathy, peripheral arterial disease, iron deficiency, chronic chronic anticoagulation. Patient denies constitutional symptoms. Patient ambulates in surgical shoe with heel offloading. 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 Patient has no other complaints. Subjective Subjective Patient is 3 weeks postop from application of right lower extremity external fixation with wound debridement down to bone. Patient was placed on PICC line with IV antibiotics per infectious disease. Patient had a complication postoperatively and suffered a stroke and was ultimately transferred to [facility] which is why I have not [...] Cosigner Signature (if applicable): CC: ~ Signed [facility]05-13-2025 Hospital Discharge instructions* Discharge Instructions* Francine Siddiqui APRN-BEET TOPPER - 10/30/2024 10:41 AM EDT Please take [...] you at all times. Stroke Education: visit [email or web address] What are the most common symptoms of [...] all ordered medications [] Avoid non-prescription or gtgu-xve-ndvvzhl medication not cleared by your physician [x] [...] may call the neurovascular doctors office at [phone], if you have questions Mon-Fri between 8:30 am and 4:30 pm. - For off hours or the weekend you may call the office or the hospital hydrotreater operator at and ask for the stroke resident station cook to be paged. - If you have any other questions or needs, please call Belinda RODRIGUEZ, RN, Stroke Nurse Navigator at [phone] Mon-Fri between 7:00am and 3:00pm. - Additional assistance may be found by reaching out to our Case Management Office at [phone]. *In the event of an Emergency: If you have a physical or psychiatric emergency call 801 or go to your local emergency department. You should also call your outpatient provider's emergency number. Other reference numbers: [facility] Intake Office at 631-904-8182; [facility] at 199-648-5686; or Suicide Prevention Hotline at 381-859-8577. *Helpful phone numbers: Free Crisis Hotline: 5-633-764-TALK ( ) Suicide Hotline: 749.416.9124 Seniors Suicide Hotline: 475.873.9190 [facility] Youth: 583.137.9693 Mental Health of [place]: 409.666.5514 (free counseling) [facility] Access Hotline: 964-109-CKET (723-280-9671) 24-hour crisis text hotline: Text the word "4hope" to 557-110 for crisis support. Texting this number is [...] you may qualify for Medicaid/public assistance: The [facility] Department of Job and Family Services can now process sparks (TANF), food (SNAP) and Medicaid Applications over the phone. Please call [phone] ([phone]) and apply over the phone or apply online at www.benefits.[place].gov. Tuesday-Tuesday 8am-12pm noon. Medication Assistance Programs [employer] members can buy 100+ common prescriptions for FREE, $3 or $6. Annual membership is $36 for individuals and $72 for families (up to 6 people, including pets). Sign up online or enroll at your nearest pharmacy! -[employer], web site can provide a significant number of coupons for medications at a much lower [place]olson. [place] Department of Aging The Department of Aging administers programs and services to meet the needs of older [place]. Services and resources offered per [facility] may include transportation, housekeeping, meals and nutrition, personal care, case management, safety monitoring, home medical equipment, legal services, financial agent, health and wellness, education, caregiver support, respite care, etc. Call to be connected to the [facility] agency on aging serving your community or visit [employer].[place].gov/find-services. Request a consultation with a community resource expert at ltssi.age.[place].gov/ [facility] Stroke Support The [place] Stroke Support Group is for stroke survivors, friends, and family members. Meets on the Tuesday of each month from 6:30pm-7:30pm at [facility] ([address]; [place] [address]). Contact Ariane Donato, at [phone] or [email or web address]. If you are outside of the [place] area, contact The [place] Stroke Association at www.stroke.org or 8-260-0-STROKE or for support groups in your area. You may also refer to the Your Care after a Stroke education booklet at go.os.edu/ffbb2128 for additional resources. * Medications* AHSAN Hutchins - 10/30/2024 10:41 AM EDT Know your medicines Make sure you know why you are taking each medicine. Make a master list of all your medicines. Write down the medicine names and doctors' names. Includedoses and side effects too. And write down why you take each medicine. Include all prescription xgqhrjm-rdc-znbnyyo medicines, vitamins, and supplements. Keep this list [...] plan your refills so that you can meat pickler all your medicines at the same time. 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 Discussed with the nurse and the respiratory therapist.Admitted being anxious and depressed. -Administer breathing treatment -Check ECG, Troponin and CXR -If normal, may try anxiolytics -Patient declines anti-depressant at this time but would like to think over it AHSAN Chavez 10/24/2024 4:33 PM * Plan of Care - Rebecca Lantigua PT - 10/24/2024 11:19 AM EDT Problem: [...] of Care - Yahaira Alcocer OT - 10/24/2024 9:33 AM EDT Problem: [...] intake, Declines supplements, and has a wound. Testlio has notified RD via IHIST Chat about referral. RD to follow. * Nursing Notes - Cassandra Overton RN - 10/23/2024 2:00 AM EDT [facility] admission to [facility], from another [facility] inpatient unit a dual RN initial assessment of skin condition was performed by Cassandra Overton RN and Amelia Eid RN. Skin Assessment: Skin not within defined limits. - Wound(s) identified: Yes Gaetano Score: 13 LDA Added:No LDA previously charted Cassandra Overton RN * Plan of Care - Kelsey Armenta RN - 10/22/2024 11:15 PM EDT Problem: [...] feel free to contact the podiatry resident station cook. 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 Service Provider Services Address Phone Fax Patient Preferred [facility] [address] [place], [place] [id number] -- Transport Request Mode of Transfer: [facility] Name of Discharge Transport Company: [employer] [facility]charge Transport ETA: 10/30/2024 @10:00am Patient medically stable for discharge per physician/medical team. Patient/Rocket Engine Mechanic remain inagreement with the discharge plan. Insurance authorization has been received and a HENS has been completed for discharge. MISTY Mcdaniels, ROSALINDA [employer] Available by Secure Chat * ROSALINDA Lugo - 10/29/2024 9:19 AM EDT Placement Plan Expected Discharge Date: Referred Level of Care: SNF Barriers: Medical readiness, transportation. Current Referrals and Status 1. [facility] - Available and Reserved Patient still anticipated to be medically ready for discharge tomorrow morning. SW will remain available to assist as needed. MISTY Mcdaniels, ROSALINDA [employer] Available by Secure Chat * Francine Siddiqui, MEDICAL RECORDS AUDITOR-BEET TOPPER - 10/29/2024 7:48 AM EDT Neurovascular Stroke Service Intracerebral Hemorrhage Note IDENTIFYING INFORMATION Lani Zaragoza MR# [id number] 10/29/2024 HISTORY OF PRESENT ILLNESS Lani Zaragoza [...] service 10/23: Resume Losartan at 25mg daily (/ home dose) 10/24: Monitor BPs, increase losartan [...] Intracerebral Hemorrhage Score Intracerebral Hemorrhage (ICH) Scale Prichard Coma Scale Points: 0-->GCS 13-15 Age>/=80: 0-->no Infratentorial Origin of Hemorrhage?: 0-->no ICH Volume >/= 30cm(3): 0-->no (less than 30cm(3)) Intraventricular Hemorrhage?: 1-->yes ICH Score (Calculated): 1 Score 30 Day Mortality following ICH 0 0% Mortality 1 13% Mortality 2 26% Mortality 3 72% Mortality 4 97% Mortality 5 100% Mortality ASSESSMENT AND PLAN Neuro: 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 No significant carotid or vertebral artery stenosis MRI brain w and w/o: Stable IPH/IVH. TTE: EF 60-65%; no PFO LDL 105, A1c 10.5 -Stroke Etiology (TOAST Criteria): Likely hemorrhagic transformation of recent R CASE ASSEMBLER infarct which is likely cardioembolic in nature -Antiplatelet plan: Resumed Aspirin 81 mg daily on 10/24 -Statin therapy: Atorvastatin 40 mg daily -Blood Pressure goal: SBP <160 -Continue to hold Eliquis for now, plan to resume 3 weeks post-bleed (11/06/2024) Hemorrhagic Stroke Core Measures -ORISS on admission 16 -Patient has been started [...] Medication Requiring Central Venous Administration : multiple, 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 IV antibiotic therapy Can line/s be removed today? Select all that apply Line 1, no cannot be removed Dressing/s Clean/Dry/Intact?: Select all that apply Line 1, Dressing clean, dry, intact Francine Siddiqui, MEDICAL RECORDS AUDITOR-BEET TOPPER 10/29/2024 12:17 PM VITAL SIGNS Temp: [97.6 [...] 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 No progressive mass effect. Stable [...] Electronically Signed By: Annamarie Del Castillo M.D., [facility] on 10/18/2024 10:13 AM XR CHEST 1 [...] discussed the critical finding/s of possible left CASE ASSEMBLER occlusion with Kristen Ramon MD on 10/16/2024 8:57 PM. I personally viewed and interpreted these images and I have reviewed and approved this report. STROKE HEAD-STROKE ALERT ONLY Final Result IMPRESSION: 1. Acute left temporo-occipital parenchymal hemorrhage, likely hemorrhagic transformation of recent CASE ASSEMBLER territory infarct. 2. Trace interventricular hemorrhage. 3. [...] interviewed and examined this patient with the SKIN THERAPIST. I reviewed the history and exam detailed [...] System for discharge. Susanne Goyal Care Management Access Clinician * NASH Duval - 10/28/2024 12:27 PM EDT Placement Plan Expected Discharge Date: 10/31/2024 Referred Level of Care: SNF Barriers: Medical stability, Transportation Current Referrals and Status 1. [facility] - Accepted/Selected Received confirmation from Brandon at [facility] that they can accept and are aware of pt's IV antibiotic needs. Pt not ready for discharge today (awaiting final Endo recs). CM supervisor wet pour set up transport for Tuesday at 10am via [employer] (no transport available on Tuesday). Updated team. PRANAV Finley Senior Inspector *Please note that I am a float social contact worker and that I may not cover the same service everyday. Please call the main Social Work office at for up to date coverage. For Social Work assistance for the weekend, please contact for assistance as needed (8:00am - 4:30pm): LORI: [phone] Michele: [phone] Rasheed: [phone] Francisco/REUEBNU/JERU Jing: [phone] * Susanne Goyal - 10/28/2024 12:25 PM EDT Care Management Progress Note Transportation for discharge arranged Mode of Transfer: (P) BLS Name of Discharge Transport Company: (P) [facility] ETA: (P) 10/30/2024 @10:00am Pick-up from B10E 1078/A Destination [facility] [address] [place] [address] Susanne Goyal Care Management Access Clinician * Elizabeth Agosto MD - 10/28/2024 7:11 AM EDT I [...] GFR >90 10/26/2024 HCT:LTO ICH with Left CASE ASSEMBLER stroke CTA:mid/distal left posterior cerebral artery occlusion MRI: L CASE ASSEMBLER stroke with ICH transformation ECHO: EF okay Neuro Exam: MS: Awake. Language: Intact speech and language. Mild dysarthria CN: 2-12 intact. RFD, Motor: 5/5 all over on left and RHP Assessment: Lani Zaragoza is a 69 y.o. 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 Strokefrom Afib Plan: Resume ASA today. Switch to Ac in 3 weeks Can Dc ASA once on AC statin HTN: Aim normotension. Coreg resumed at low dose DM: Insulin RLE OM: Abx continue course per ID Continue statin PT/OT evaluation Risk factor modification and stroke education provided. DVT prophylaxis Start dispo planning Elizabeth Agosto MD Seafood Preparer Department of Neurology * Nestor Norton APRN-BEET TOPPER - 10/28/2024 5:24 AM EDT Neurovascular Stroke Service Intracerebral Hemorrhage Note IDENTIFYING INFORMATION Lani Zaragoza MR# [id number] 10/28/2024 HISTORY OF PRESENT ILLNESS Lani Zaragoza [...] parenchymal hemorrhage, likely hemorrhagic transformation of recent CASE ASSEMBLER territory infarct CTA brain/neck: Equivocal for left CASE ASSEMBLER occlusion. No significant carotid or vertebral artery stenosis MRI brain w and w/o: Stable IPH/IVH. TTE: EF 60-65%; no PFO LDL 105, A1c 10.5 -Stroke Etiology (TOAST Criteria): Likely hemorrhagic transformation of recent R CASE ASSEMBLER infarct which is likely cardioembolic in nature -Antiplatelet plan: Resumed Aspirin 81 mg daily on 10/24 -Statin therapy: Atorvastatin 40 mg daily -Blood Pressure goal: SBP <160 -Continue to hold Eliquis for now, plan to resume 3 weeks post-bleed and a repeat head CT (11/06/2024) Hemorrhagic Stroke Core Measures -ORISS on admission 16 -Patient has been started [...] Medication Requiring Central Venous Administration : multiple, custodial IV antibiotic therapy Can line/s be removed today? Select all that apply Line 1, no cannot be removed Dressing/s Clean/Dry/Intact?: Select all that apply Line 1, Dressing clean, dry, intact Nestor Norton APRN-MICHAEL 10/28/2024 9:43 AM VITAL SIGNS Temp: [97.8 [...] 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 No progressive mass effect. Stable [...] discussed the critical finding/s of possible left CASE ASSEMBLER occlusion with Kristen Ramon MD on 10/16/2024 8:57 PM. I personally viewed and interpreted these images and I have reviewed and approved this report. STROKE HEAD-STROKE ALERT ONLY Final Result IMPRESSION: 1. Acute left temporo-occipital parenchymal hemorrhage, likely hemorrhagic transformation of recent CASE ASSEMBLER territory infarct. 2. Trace interventricular hemorrhage. 3. [...] 750 mg Intravenous Q12HNS Cosigned by Elizabeth Agosto MD at 10/28/2024 12:44 PM EDT * Anu Yancey, [facility] - 10/27/2024 11:57 AM EDT Department of Pharmacy Pharmacokinetics Progress Note Patient: Lani Zaragoza Room/Bed: 1078/A Assessment and Plan: Based upon renal function, [...] further questions. Name: Anu Yancey RPH Phone: [phone] Date/Time: 10/27/2024 11:57 AM * NASH Duval - 10/27/2024 10:12 AM EDT Placement Plan Expected Discharge Date: 10/29/2024 Referred Level of Care: SNF Barriers: Accepting facility, choice, medical readiness, transportation. Current Referrals and Status [facility] Available 2. [facility] Available/selected 3. [facility] Available 4. [facility] Viewed 5. [facility] Unavailable Spoke with pt's sister/HCPOA Norma, who reports that she spoke with the admissions team at the [facility] yesterday and they advised her that she would need to obtain a water engineer in [place] andhave them come to [facility] to do a financial POA with the [...] discussed placement options and prefer placement at [facility] at this time. SW left message for admissions at [facility] to confirm choice and inquire when they can accept the pt for admission. ALVARADO will follow. PRANAV Finley Senior Inspector *Please note that I am a float social contact worker and that I may not cover the same service everyday. Please call the main Social Work office at for up to date coverage. 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 Strokefrom Afib Plan: Resume ASA today. Switch to Ac in 3 weeks Can Dc ASA once on AC statin HTN: Aim normotension. Cored resumed at low dose DM: Insulin RLE OM: Abx continue course per ID Continue statin PT/OT evaluation Risk factor modification and stroke education provided. DVT prophylaxis Start dispo planning Elizabeth Agosto MD Seafood Preparer Department of Neurology * Nestor Norton, MEDICAL RECORDS AUDITOR-BEET TOPPER - 10/27/2024 5:16 AM EDT Neurovascular Stroke Service Intracerebral Hemorrhage Note IDENTIFYING INFORMATION Lani Zaragoza MR# [id number] 10/27/2024 HISTORY OF PRESENT ILLNESS Lani Zaragoza [...] Intracerebral Hemorrhage Score Intracerebral Hemorrhage (ICH) Scale Prichard Coma Scale Points: 0-->GCS 13-15 Age>/=80: 0-->no [...] parenchymal hemorrhage, likely hemorrhagic transformation of recent CASE ASSEMBLER territory infarct CTA brain/neck: Equivocal for left CASE ASSEMBLER occlusion. No significant carotid or vertebral artery stenosis MRI brain w and w/o: Stable IPH/IVH. TTE: EF 60-65%; no PFO LDL 105, A1c 10.5 -Stroke Etiology (TOAST Criteria): Likely hemorrhagic transformation of recent R CASE ASSEMBLER infarct which is likely cardioembolic in nature -Antiplatelet plan: Resumed Aspirin 81 mg daily on 10/24 -Statin therapy: Atorvastatin 40 mg daily -Blood Pressure goal: SBP <160 -Continue to hold Eliquis for now, plan to resume 3 weeks post-bleed and a repeat head CT (11/06/2024) Hemorrhagic Stroke Core Measures -ORISS on admission 16 -Patient has been started [...] Medication Requiring Central Venous Administration : multiple, 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 IV antibiotic therapy Can line/s be removed today? Select all that apply Line 1, no cannot be removed Dressing/s Clean/Dry/Intact?: Select all that apply Line 1, Dressing clean, dry, intact Nestor Norton APRN-MICHAEL 10/27/2024 9:13 AM VITAL SIGNS Temp: [97.7 [...] 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 No progressive mass effect. Stable [...] discussed the critical finding/s of possible left CASE ASSEMBLER occlusion with Kristen Ramon MD on 10/16/2024 8:57 PM. I personally viewed and interpreted these images and I have reviewed and approved this report. STROKE HEAD-STROKE ALERT ONLY Final Result IMPRESSION: 1. Acute left temporo-occipital parenchymal hemorrhage, likely hemorrhagic transformation of recent CASE ASSEMBLER territory infarct. 2. Trace interventricular hemorrhage. 3. [...] 750 mg Intravenous Q12HNS Cosigned by Elizabeth Agosto MD at 10/27/2024 2:41 PM EDT * [employer] Permit Meza - 10/26/2024 5:24 PM EDT Scoring Tool and Orders for Airway Clearance Therapy Points Therapy Frequency 0 - 7 PEP DC or DYLAN 8 - 16 VIBRATORY PEP TID 17 - 24 METANEB, VEST, IPV, PDP Q6 25 - 32 METANEB, VEST, IPV, PDP Q4 >32 NOTIFY TEAM NOTIFY TEAM Plan of Care TID DYLAN. [employer] Permit [facility]za 10/26/2024 5:25 PM * ROSALINDA Lugo - 10/26/2024 9:34 AM EDT Placement Plan Expected Discharge Date: 10/29/2024 Referred Level of Care: SNF Barriers: Accepting facility, choice, medical readiness, transportation. Current Referrals and Status [facility] Available 2. [facility] Available 3. [facility] Available 4. [facility] Viewed 5. [facility] Unavailable SW left for admissions at the [facility] requesting final determination regarding accepting patient,as patient is currently with appropriate capacity to assist with Medicaid application and/or complete a financial POA per primary team. 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 Strokefrom Afib Plan: Resume ASA today. Switch to Ac in 3 weeks Can Dc ASA once on AC statin HTN: Aim normotension DM: Insulin RLE OM: Abx continue course per ID Continue statin PT/OT evaluation Risk factor modification and stroke education provided. DVT prophylaxis Start dispo planning Elizabeth Agosto MD Seafood Preparer Department of Neurology * Roz Alejandre, MEDICAL RECORDS AUDITOR-BEET TOPPER - 10/26/2024 6:00 AM EDT Neurovascular Stroke Service Intracerebral Hemorrhage Note IDENTIFYING INFORMATION Lani Zaragoza MR# [id number] 10/26/2024 HISTORY OF PRESENT ILLNESS Lani Zaragoza [...] Intracerebral Hemorrhage Score Intracerebral Hemorrhage (ICH) Scale Prichard Coma Scale Points: 0-->GCS 13-15 Age>/=80: 0-->no [...] parenchymal hemorrhage, likely hemorrhagic transformation of recent CASE ASSEMBLER territory infarct CTA brain/neck: Equivocal for left CASE ASSEMBLER occlusion. No significant carotid or vertebral artery stenosis MRI brain w and w/o: Stable IPH/IVH. TTE: EF 60-65%; no PFO LDL 105, A1c 10.5 -Stroke Etiology (TOAST Criteria): Likely hemorrhagic transformation of recent R CASE ASSEMBLER infarct which is likely cardioembolic in nature -Antiplatelet plan: Resumed Aspirin 81 mg daily on 10/24 -Statin therapy: Atorvastatin 40 mg daily -Blood Pressure goal: SBP <160 -Continue to hold Eliquis for now, plan to resume 3 weeks post-bleed and a repeat head CT (11/06/2024) Hemorrhagic Stroke Core Measures -[facility] on admission 16 -Patient has [...] Medication Requiring Central Venous Administration : multiple, custodial IV antibiotic therapy Can line/s be removed today? Select all that apply Line 1, no cannot be removed Dressing/s Clean/Dry/Intact?: Select all that apply Line 1, Dressing clean, dry, intact Roz Alejandre, MEDICAL RECORDS AUDITOR-BEET TOPPER 10/26/2024 1:36 PM VITAL SIGNS Temp: [97 [...] 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 No progressive mass effect. Stable [...] discussed the critical finding/s of possible left CASE ASSEMBLER occlusion with Kristen Ramon MD on 10/16/2024 8:57 PM. I personally viewed and interpreted these images and I have reviewed and approved this report. STROKE HEAD-STROKE ALERT ONLY Final Result IMPRESSION: 1. Acute left temporo-occipital parenchymal hemorrhage, likely hemorrhagic transformation of recent CASE ASSEMBLER territory infarct. 2. Trace interventricular hemorrhage. 3. Localized mass effect without significant midline shift, herniation, hydrocephalus. Pulmonary results were discussed with Kirsten Ramon MD at 8:57 PM on October [...] 750 mg Intravenous Q12HNS Cosigned by Elizabeth Agosto MD at 10/26/2024 4:49 PM EDT * ROSALINDA Lugo - 10/25/2024 3:56 PM EDT Placement Plan Expected Discharge Date: Referred Level of Care: SNF Barriers: Accepting facility, choice, medical readiness, transportation. Current Referrals and Status [facility] Available 2. [facility] Available 3. [facility] Available 4. [facility] Viewed 5. [facility] Unavailable Still awaiting response from the [facility] at this time. SW updated patient at bedside who said he maybe agreeable to searching for a new facility if necessary. Patient agreeable to SW following up in the AM. MISTY Mcdaniels, TOLL COLLECTOR SUPERVISOR [employer] Available by Secure Chat * EVETTE Carballo - 10/25/2024 1:58 PM EDT Acute Care Speech Language Pathology Treatment Best mode of Communication: Spoken language Communication Strategies: eliminate distractions Discharge Recommendations: Based on the below outcome measures/assessment score(s) and HEAT TRANSFER TECHNICIAN clinicaljudgment, discharge destination recommendation is: [facility] Facility Barriers to discharge home: 1:1 assist needed for IADL's including medication management and finances Supporting factors for discharge setting: Impaired cognitive skills limiting independence (Impairedreading skills) Acute HEAT TRANSFER TECHNICIAN Outcomes Tracking Communicate basic wants and needs?: yes Demo insight/appreciation of deficits?: yes Complete basic problem solving?: yes Current therapy frequency recommendation in acute: Speech/Lang/Cog Therapy Frequency: 3 times a week Clinical Impression: Lani Zaragoza presents with fluent aphasia (anomic aphasia) given s/p L CASE ASSEMBLER CVA, L temporal ICH andconcerns for cognitive [...] reliability of cognitive assessment. Recommend continue ongoing HEAT TRANSFER TECHNICIAN services to assist in patient's abilities to return to [facility]. Subjective information: Patient reclined in bed, agreeable [...] 0 Oxygen Concentration (%): [21] 21 Acute HEAT TRANSFER TECHNICIAN Goals Plan of Care by EVETTE Carballo at 10/25/2024 1:58 PM Version 1 of 1 Problem: HEAT TRANSFER TECHNICIAN - Language Goal: Word Retrieval Strategies for Conversation - Patient will state and/or demonstrate understanding of trained strategies targeting anomia with no more than min cues to use strategies during functional conversation to reduce communication breakdowns Outcome: Ongoing Tx: Reviewed word finding strategies during anomia during conversation. HEAT TRANSFER TECHNICIAN educated regarding circumlocution strategies to assist with [...] aloud incorrect words. Deferred further trials. Problem: HEAT TRANSFER TECHNICIAN - Cognition Goal: Metacognition - Patient will [...] 10/25: good candidate; ongoing reading/writing, anomia strategies HEAT TRANSFER TECHNICIAN Outcomes: HEAT TRANSFER TECHNICIAN Outcomes / Standardized Measures Score The Orientation [...] 30 Seconds: 20-24 seconds or 36-40 seconds Fant-Diby-Jgpa: three correct repetitions Go / No-Go: correct response on each trial Address Recall: no recall Total Score: 17 Speech Language Pathologist: Jose N Jing, HEAT TRANSFER TECHNICIAN Time In: 1358 Time Out: 1414 Total Visit Time: 16 minutes Total Treatment Time (skilled, billable minutes): 16 minutes Non-billable assistance during session: NA Assisted by during session: NA PPE used during patient interaction: gloves Patient location/status at end of session: bed with head of bed elevated Patient alarms at end of session: none altered Needs in reach. 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 Stroke from Afib. Of note, recently admitted to [facility] 10/09 for chronic foot wound s/p debridement with podiatry. Discharged to SNF 10/16 and admitted to [facility] from SNF d/t stroke. Past History No past medical history on file. No past surgical history on file. Nutrition History/Assessment: Pt referred to RD by DTR/DTR student d/t poor PO intake and wound. Pt initially not on diet this admission 2/2 requiring BiPAP (NPO x 2 days). Diet advanced to soft and bite sized with thin liquids 5/1 and carb controlled with regular texture solids 5/2. Attempted to visit pt at bedside this afternoon. Pt unavailable, with HEAT TRANSFER TECHNICIAN. Will continue to follow and follow-up as able/per protocol. Nutrition Focused Physical Exam: Nutrition Focused Physical Exam Completed?: deferred Reason For Deferral: pt unavailable, with HEAT TRANSFER TECHNICIAN % PO Intake per docflowsheets: Average of 34% Breakfast Lunch Dinner Snacks 10/18 --- --- --- --- 10/19 --- 50% 0% --- 10/20 75% 0% 75% --- 10/21 25% 25% 25% --- 10/22 --- 50% 50% --- 10/23 0% 25% 33% --- 10/24 50% 25% --- --- some PO intakes [...] 5.6 oz) 10/16/24 157.3 kg - OSH 09/25/24 164.7 kg - OSH 05/23/23 168.5 kg [...] Needs: Weight Used: 73 kg (IBW) EEN: 1169-3241 kcal/day (30-35 kcal/kg) EPN: 110-146 g/day (1.5-2 g/kg) EFN: 2190 mL/day (30 mL/kg) Malnutrition Statement: Does the patient meet criteria for malnutrition: Unable to assess *Based on [employer] and [employer]EN Indicators to Diagnose Malnutrition (AAIM) criteria (2012) Kathy Avila MS, RD, LD, CSNC Pager #[phone] * Elizabeth Agosto MD - 10/25/2024 7:41 AM EDT I [...] GFR >90 10/25/2024 HCT:LTO ICH with Left CASE ASSEMBLER stroke CTA:mid/distal left posterior cerebral artery occlusion MRI: L CASE ASSEMBLER stroke with ICH transformation ECHO: EF okay [...] presents as hemorrhagic stroke alert from 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 Strokefrom Afib Plan: Resume ASA today. Switch to Ac in 2-[address] before starting. Can Dc ASA once on AC CT in am statin HTN: Aim normotension DM: Insulin RLE OM: Abx continue course per ID Continue statin PT/OT evaluation Risk factor modification and stroke education provided. DVT prophylaxis Start dispo planning Elizabeth Agosto MD Seafood Preparer Department of Neurology * Roz Alejandre, MEDICAL RECORDS AUDITOR-BEET TOPPER - 10/25/2024 7:17 AM EDT Neurovascular Stroke Service Intracerebral Hemorrhage Note IDENTIFYING INFORMATION Lani Zaragoza MR# [id number] 10/25/2024 HISTORY OF PRESENT ILLNESS Lani Zaragoza [...] service 10/23: Resume Losartan at 25mg daily (/ home dose) 10/24: Monitor BPs, increase losartan [...] parenchymal hemorrhage, likely hemorrhagic transformation of recent CASE ASSEMBLER territory infarct CTA brain/neck: Equivocal for left CASE ASSEMBLER occlusion. No significant carotid or vertebral artery stenosis MRI brain w and w/o: Stable IPH/IVH. TTE: EF 60-65%; no PFO LDL 105, A1c 10.5 -Stroke Etiology (TOAST Criteria): Likely hemorrhagic transformation of recent R CASE ASSEMBLER infarct which is likely cardioembolic in nature -Antiplatelet plan: Resumed Aspirin 81 mg daily on 10/24 -Statin therapy: Atorvastatin 40 mg daily -Blood Pressure goal: SBP <160 -Continue to hold Eliquis for now, plan to resume 3 weeks post-bleed and a repeat head CT (11/06/2024) Hemorrhagic Stroke Core Measures -[facility] on admission 16 -Patient has [...] Medication Requiring Central Venous Administration : multiple, 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 IV antibiotic therapy Can line/s be removed today? Select all that apply Line 1, no cannot be removed Dressing/s Clean/Dry/Intact?: Select all that apply Line 1, Dressing clean, dry, intact Roz Alejandre, MEDICAL RECORDS AUDITOR-BEET TOPPER 10/25/2024 11:22 AM VITAL SIGNS Temp: [98 [...] 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 No progressive mass effect. Stable [...] Electronically Signed By: Annamarie Del Castillo M.D., [facility] on 10/18/2024 10:13 AM XR CHEST 1 [...] discussed the critical finding/s of possible left CASE ASSEMBLER occlusion with Kristen Ramon MD on 10/16/2024 8:57 PM. I personally viewed and interpreted these images and I have reviewed and approved this report. STROKE HEAD-STROKE ALERT ONLY Final Result IMPRESSION: 1. Acute left temporo-occipital parenchymal hemorrhage, likely hemorrhagic transformation of recent CASE ASSEMBLER territory infarct. 2. Trace interventricular hemorrhage. 3. [...] 750 mg Intravenous Q12HNS Cosigned by Elizabeth Agosto MD at 10/25/2024 3:22 PM EDT * Kassie Bebo - 10/24/2024 7:30 PM EDT Introduced self and role of the marketing intelligence analyst to patient. Provided emotional and spiritual support and the patient responded by sharing their experience and discussed the following:family, kinza, concerns, support, losses, and work. Patient encouraged to request a marketing intelligence analyst as needed. Chaplains are available 24 hours a day and 7 days a week. For urgent matters in [facility], please page [phone]. If the request is not urgent, please enter a consult. Consults are responded to within 24 hours. Kassie Lagunas, PhD, MDiv, MA, ROCK Diamond Cleaver 10/24/24 1930 Clinical Encounter Type Visited With Patient Visit [...] Kinza issues;Meaning of illness;Expectations;Family issues;Coping mechanism;Treatment decisions Clothing Sales Assistant Education Clothing Sales Assistant Service Available Yes Educated Patient Topic Coping Skills;Stress management Outcomes Patient Outcomes Reduced distress;Progressed towards acceptance Plan of Care Continue Visiting PRN Referred to RN;Social Work/PCRM * ROSALINDA Lugo - 10/24/2024 3:17 PM EDT Placement Plan Expected Discharge Date: Referred Level of Care: SNF Barriers: Accepting facility, choice, medical readiness, transportation. Current Referrals and Status [facility] Available 2. [facility] Available 3. [facility] Available 4. [facility] Viewed 5. [facility] Unavailable ALVARADO spoke with patient's sister and OSCAR Green by phone to discuss [facility] update to they would not be able to accept without completed Medicaid, guardianship, or financial POA. Norma told ALVARADO that she was able to get patient's house keys and retrieved a number of financial documents this weekend that would be needed for the Medicaid application and she planned to review them this evening to match them against a checklist given by the facility. Norma asked that SW ask theSNF to re-review patient's situation in light of this information. Norma was agreeable to SW sending SNF referrals as backup to the [facility] while waiting for a response. SW to follow up with SNFs and Norma tomorrow. MISTY Mcdaniels, TOLL COLLECTOR SUPERVISOR [employer] Available by Secure Chat * Rebecca Lantigua, PT - 10/24/2024 11:19 AM EDT Acute Physical Therapy Treatment Prior Gross Functional Mobility: independent Current AM-PAC score(s): CURRENT AM-PAC Mobility Raw Score: 6 Based on the above AM-PAC score(s) and PT clinical judgment, patient is a good candidate for discharge to [facility] Facility Barriers to discharge home: Patient needs [...] anterior weight shifting Mobility Assessment/Intervention: Rolling/Turning Mobility Brown Level: Rolling/Turning: maximum assist (25% patient effort) Physical Assist: Rolling/Turnin person assist Bed Features/Set-up: Rolling/Turning: Flat Skilled Rationale: Positioning, Sequencing, Hand placement, Verbal cues Skilled Intervention/Details: Rolling/Turning: pt completed bilateral rolling in bed for linen change and hygiene care Supine to Sit Mobility Brown Level: Supine->Sit: maximum assist (25% patient effort) Physical Assist: Supine->Sit: 2 person assist Bed Features/Set-up: Supine->Sit: Head of bed elevated, Use of bed rail Skilled Rationale: Positioning, Sequencing Skilled Intervention/Details: Supine->Sit: pt completed supine to sit with step by step cues forsequencing Transfer Assessment/Intervention: Gait/Functional Mobility Assessment/Intervention: Stairs Assessment/Intervention: Outcome Score(s): CURRENT [facility] Basic Mobility Inpatient Short Form Turning over in bed: 1 - Total Assistance Moving from lying on back to sittin - Total Assistance Moving to and from bed to chair: 1 - Total Assistance Sitting/standing from chair: 1 - Total Assistance Walk in hospital room: 1 - Total Assistance Climbing 3-5 steps with a railin - Total Assistance CURRENT [facility] Mobility Raw Score: 6 CURRENT [facility] Mobility Functional Limitation: 100.00% Impaired in Basic [...] Physical Therapy Discharge Summary. * Cory Guzman APRN-BEET TOPPER - 10/24/2024 10:15 AM EDT Neurovascular Stroke Service Intracerebral Hemorrhage Note IDENTIFYING INFORMATION Lani Zaragoza MR# [id number] 10/24/2024 HISTORY OF PRESENT ILLNESS Lani Zaragoza [...] parenchymal hemorrhage, likely hemorrhagic transformation of recent CASE ASSEMBLER territory infarct CTA brain/neck: Equivocal for left CASE ASSEMBLER occlusion. No significant carotid or vertebral artery stenosis MRI brain w and w/o: Stable IPH/IVH. TTE: EF 60-65%; no PFO LDL 105, A1c 10.5 -Stroke Etiology (TOAST Criteria): Likely hemorrhagic transformation of recent R CASE ASSEMBLER infarct which is likely cardioembolic in nature -Antiplatelet plan: Resumed Aspirin 81 mg daily on 10/24 -Statin therapy: Atorvastatin 40 mg daily -Blood Pressure goal: SBP <160 -Continue to hold Eliquis for now, plan to resume 3 weeks post-bleed and a repeat head CT Hemorrhagic Stroke Core Measures -[facility] on admission 16 -Patient has [...] Medication Requiring Central Venous Administration : multiple, 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 IV antibiotic therapy Can line/s be removed today? Select all that apply Line 1, no cannot be removed Dressing/s Clean/Dry/Intact?: Select all that apply Line 1, Dressing clean, dry, intact Coyr Guzman APRN-BEET TOPPER 10/24/2024 2:42 PM VITAL SIGNS Temp: [97.6 [...] 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 No progressive mass effect. Stable [...] discussed the critical finding/s of possible left CASE ASSEMBLER occlusion with Kristen Ramon MD on 10/16/2024 8:57 PM. I personally viewed and interpreted these images and I have reviewed and approved this report. STROKE HEAD-STROKE ALERT ONLY Final Result IMPRESSION: 1. Acute left temporo-occipital parenchymal hemorrhage, likely hemorrhagic transformation of recent CASE ASSEMBLER territory infarct. 2. Trace interventricular hemorrhage. 3. [...] vancomycin 750 mg Intravenous Q12HNS * Yahaira Holtchau, OT - 10/24/2024 9:32 AM EDT Acute Occupational Therapy Treatment Prior Gross Functional Mobility: independent Current AM-PAC score(s): CURRENT AM-PAC Activity Raw Score: 14 Based on the above AM-PAC score(s), and OT clinical judgment, discharge destination recommendation is: [facility] Facility Barriers to discharge home: Patient needs [...] (Mild bilateral LEs.) Mobility Assessment/Intervention: Rolling/Turning Mobility Brown Level: Rolling/Turning: maximum assist (25% patient effort) [...] hygiene/lesvia-care post bladder incontinence. Scooting Bridging Mobility Brown Level: Scooting/Bridging: dependent (less than 25% patient effort) Physical Assist: Scooting/Bridgin person assist Bed Features/Set-up: Scooting/Bridging: Flat Supine to Sit Mobility Brown Level: Supine->Sit: maximum assist (25% patient effort) [...] time/effort for performance. Sit to Supine Mobility Brown Level: Sit->Supine: maximum assist (25% patient effort) [...] dependent assistance x 2. Outcome Score(s): CURRENT AM-PAC Daily Activity Inpatient Short Form Putting on/Taking Off Lower Body Clothin - Total Assistance Bathin - A Lot of Assistance Toiletin - Total Assistance Putting on/Taking Off Upper Body Clothin - A Little Assistance Groomin - A Little Assistance Eatin - No Assistance CURRENT AM-PAC Activity Raw Score: 14 CURRENT AM-PAC Activity Functional Limitation/Modifier: 59.67% Currently Impaired in [...] current Occupational Therapy Discharge Summary. * Elizabeth Agosto MD - 10/24/2024 7:18 AM EDT I [...] GFR >90 10/23/2024 HCT:LTO ICH with Left CASE ASSEMBLER stroke CTA:mid/distal left posterior cerebral artery occlusion MRI: L CASE ASSEMBLER stroke with ICH transformation ECHO: EF okay Neuro Exam: MS: Awake. Language: Intact speech and language. Mild dysarthria CN: 2-12 intact. RFD, Motor: 5/5 all over on left and RHP Assessment: Lani Zaragoza is a 69 y.o. 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 Strokefrom Afib Plan: Resume ASA today. Switch to Ac in 2-[address] before starting. Can Dc ASA once on AC statin HTN: Aim normotension DM: Insulin RLE OM: Abx continue course per ID Continue statin PT/OT evaluation Risk factor modification and stroke education provided. DVT prophylaxis Start dispo planning Elizabeth Agosto MD Seafood Preparer Department of Neurology * Josr Higuera, [facility] - 10/23/2024 11:58 PM EDT Department of [...] further questions. Name: Josr Higuera RPH Phone: [phone] Date/Time: 10/23/2024 11:58 PM * ROSALINDA Lugo - 10/23/2024 3:34 PM EDT Placement Plan Expected Discharge Date: Referred Level of Care: SNF Barriers: Accepting facility, choice, medical readiness, IV antibiotics, transportation. Current Referrals and Status [address]. [facility] - Available 11 Other SNFS: Sent Patient transferred to [facility] with SNF referral reserved. However, SNF [...] discuss need to look for alternative SNF. Gordon Worley MSW, TOLL COLLECTOR SUPER[employer]OR [employer] Available by Secure Chat * Shweta Garcia [...] intake, Declines supplements, and has a wound. Tech has notified RD via IHIST Chat about [...] and/or swallowing Food Allergies reviewed:none Cultural or Scientology Restrictions/Preferences: none Pt reports unsure of any [...] .56 Meds: Lasix, Senna, Miralax Aydin Byrd [facility] Shade Cloth Finisher Student Cosigned by RAYMOND Thompson at 10/23/2024 [...] intake, Declines supplements, and has a wound. [facility] has notified RD via IHIST Chat about referral. RD to follow. * Elizabeth Agosto MD - 10/23/2024 8:03 AM EDT I [...] GFR >90 10/23/2024 HCT:LTO ICH with Left CASE ASSEMBLER stroke CTA:mid/distal left posterior cerebral artery occlusion MRI: L CASE ASSEMBLER stroke with ICH transformation ECHO: EF okay Neuro Exam: MS: Awake. Language: Intact speech and language. Mild dysarthria CN: 2-12 intact. RFD, Motor: 5/5 all over on left and RHP Assessment: Lani Zaragoza is a 69 y.o. 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 Strokefrom Afib Plan: AP and AC held currently. ASA in a week and AC in 2-3 weeks statin HTN: Aim normotension DM: Insulin RLE OM: Abx continue course per ID Continue statin PT/OT evaluation Risk factor modification and stroke education provided. DVT prophylaxis Start dispo planning Elizabeth Agosto MD Seafood Preparer Department of Neurology * Sohan Sawyer, MEDICAL RECORDS AUDITOR-BEET TOPPER - 10/23/2024 6:59 AM EDT Neurovascular Stroke Service Intracerebral Hemorrhage Note IDENTIFYING INFORMATION Lani Zaragoza MR# [id number] 10/23/2024 HISTORY OF PRESENT ILLNESS Lani Zaragoza [...] service 10/23: Resume Losartan at 25mg daily (/ home dose) PHYSICAL EXAM Gen: awake, alert, [...] parenchymal hemorrhage, likely hemorrhagic transformation of recent CASE ASSEMBLER territory infarct CTA brain/neck: Equivocal for left CASE ASSEMBLER occlusion. No significant carotid or vertebral artery stenosis MRI brain w and w/o: Stable IPH/IVH. TTE: EF 60-65%; no PFO LDL 105, A1c 10.5 -Stroke Etiology (TOAST Criteria): Likely hemorrhagic transformation of recent R CASE ASSEMBLER infarct which is likely cardioembolic in nature [...] stable HCT. -Antiplatelet therapy will be initiated / (PSD 7). -Anticoagulation therapy is indicated for [...] ASA 3 weeks post stroke -Start ASA 5/7, stop with resumption of Eliquis in 3 [...] for euvolemia now -Nocturnal BiPAP Sohan Sawyer APRN-BEET TOPPER 10/23/2024 2:02 PM VITAL SIGNS Temp: [97 [...] 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 No progressive mass effect. Stable [...] Electronically Signed By: Annamarie Del Castillo M.D., [facility] on 10/18/2024 10:13 AM XR CHEST 1 [...] for mid/distal left posterior cerebral artery occlusion (5144). Artifact from venous contamination and vessel tortuosity [...] discussed the critical finding/s of possible left CASE ASSEMBLER occlusion with Kristen Ramon MD on 10/16/2024 8:57 PM. I personally viewed and interpreted these images and I have reviewed and approved this report. STROKE HEAD-STROKE ALERT ONLY Final Result IMPRESSION: 1. Acute left temporo-occipital parenchymal hemorrhage, likely hemorrhagic transformation of recent CASE ASSEMBLER territory infarct. 2. Trace interventricular hemorrhage. 3. [...] 750 mg Intravenous Q12HNS Cosigned by Elizabeth Agosto MD at 10/23/2024 3:33 PM EDT * [...] OPAT ID Providers: Outside ID Provider Dr Gregorio Trinidad (ofc # [phone]) Labs: Please have the [facility] or [facility] obtain the following labs and fax to [phone], attention Outside ID Provider Dr Trinidad - Chem-6 (Including serum creatinine) without Glucose [...] is [facility] we will defer ID Care to the Infectious Disease Providers at the [facility] facility. Please instruct the facility that if the patient requires ID Follow-up after discharge, then they should call our office to arrange for an appointment. Central Access: Can Central Access be removed at the end of therapy: Yes Additional notes: Patient needs follow up scheduled with AHS[facility] Seals Cosigned by Sherrie Whalen MD at 10/22/2024 4:25 PM EDT * Elizabeth Agosto MD - 10/22/2024 1:32 PM EDT I [...] GFR >90 10/22/2024 HCT:LTO ICH with Left CASE ASSEMBLER stroke CTA:mid/distal left posterior cerebral artery occlusion MRI: L CASE ASSEMBLER stroke with ICH transformation ECHO: EF okay Neuro Exam: MS: Awake. Language: Intact speech and language. Mild dysarthria CN: 2-12 intact. RFD, VF ? Decreased on right Motor: 5/5 all over on left and RHP Assessment: Lani Zaragoza is a 69 y.o. 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 Strokefrom Afib Plan: AP and AC held currently. ASA in a week and AC in 2-3 weeks statin HTN: Aim normotension DM: Insulin RLE OM: Abx Continue statin PT/OT evaluation Risk factor modification and stroke education provided. DVT prophylaxis Elizabeth Agosto MD Seafood Preparer Department of Neurology * Ashley Soriano, MEDICAL RECORDS AUDITOR-BEET TOPPER - 10/22/2024 1:20 PM EDT Images from [...] Bun/Creat/Cl/CO2/Glucose: 15/0.56/102/32/138 (10/22 22) Na/K+/Phos/Mg/Ca: 138/4.1/3.3/2.0/-- (10/22 22) Lab Results Component Value Date ALT 13 [...] Proteus penneri, Bacteroides spp., and Clostridium ramosum [facility] 10/17 Bcx- NGTD 10/18 MRSA/MSSA screen - negative Imaging: MRI BRAIN WITHOUT CONTRAST Final Result IMPRESSION: Grossly stable parenchymal hemorrhage with surrounding edema centered in the left temporooccipital region, which could 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 No progressive mass effect. Stable small volume of intraventricular extension of hemorrhage. FOOT RIGHT 3+ VIEWS Final Result IMPRESSION: Limited examination as above without acute osseous abnormality. Possible debridement site along the posterior superior calcaneal margin. SSMENT: Pt is a 69 y.o. male with PMH: of A-fib on Eliquis, DM (uncontrolled) and OM R calcaneous. He was being treated at [facility] ([facility]) for a right heel wound with associated [...] acute hemorrhagic stroke that prompted transfer to [facility]. He has continued on IV david/vanc while here. Received update on OSH cultures of C albicans growth from previous OR cultures. He was started on IV micafungin on 10/18. I have reached out to his outside ID provider - Dr Gregorio Trinidad (ofc # [phone]). They will continue to follow him after discharge to complete the antibiotic course. We will transition to oral fluconazole - and I updated Dr Trinidad's office of this. R calcaneal OM - s/p debridement ([facility]) MRSE bacteremia - ([facility]) Acute L ICH DM uncontrolled with [...] ATTENDING: Dr Koby Soriano APRN, MS, Adult SKIN THERAPIST-C Infectious Diseases Pager [phone] Cosigned by Sherrie Whalen MD at 10/22/2024 [...] abx as outlined by Dr. Santana at [facility]. Sherrie Whalen MD [facility] Division of Infectious Diseases Pager: [phone] * Rebecca Lantigua, PT - 10/22/2024 12:56 PM EDT Acute Physical Therapy Treatment Prior Gross Functional Mobility: independent Current AM-PAC score(s): CURRENT AM-PAC Mobility Raw Score: 7 Based on the above AM-PAC score(s) and PT clinical judgment, patient is a good candidate for discharge to [facility] Facility Barriers to discharge home: Patient needs [...] posture Mobility Assessment/Intervention: Supine to Sit Mobility Brown Level: Supine->Sit: maximum assist (25% patient effort) Physical Assist: Supine->Sit: 2 person assist Bed Features/Set-up: Supine->Sit: Head of bed elevated, Use of bed rail Skilled Rationale: Positioning, Sequencing, Hand placement, Verbal cues Sit to Supine Mobility Brown Level: Sit->Supine: maximum assist (25% patient effort) Physical Assist: Sit->Supine: 2 person assist Bed Features/Set-up: Sit->Supine: Flat Transfer Assessment/Intervention: Gait/Functional Mobility Assessment/Intervention: Stairs Assessment/Intervention: Outcome Score(s): CURRENT [facility] Basic Mobility Inpatient Short Form Turning over in bed: 2 - A Lot of Assistance Moving from lying on back to sittin - Total Assistance Moving to and from bed to chair: 1 - Total Assistance Sitting/standing from chair: 1 - Total Assistance Walk in hospital room: 1 - Total Assistance Climbing 3-5 steps with a railin - Total Assistance CURRENT [facility] Mobility Raw Score: 7 CURRENT [facility] Mobility Functional Limitation: 92.36% Impaired in Basic [...] current Physical Therapy Discharge Summary. * Sohan Sawyer APRN-BEET TOPPER - 10/22/2024 11:57 AM EDT Neurovascular Stroke Service Intracerebral Hemorrhage Note IDENTIFYING INFORMATION Lani Zaragoza MR# [id number] 10/22/2024 HISTORY OF PRESENT ILLNESS Lani Zaragoza [...] was being held for surgery since 10/09. Suzannes transferred to [facility]. NIHSS 12 on arrival. LKW 1200 on 10/16. INTERVAL HISTORY 10/17: Brain MRI pending. Brother updated at bedside. 10/18: Repeat CT stable. Remains in NCCU. 10/19-10/22: NCCU admission, diuresis for respiratory management 10/22: Tx to [facility] service PHYSICAL EXAM Gen: awake, alert, NAD [...] parenchymal hemorrhage, likely hemorrhagic transformation of recent CASE ASSEMBLER territory infarct CTA brain/neck: Equivocal for left CASE ASSEMBLER occlusion. No significant carotid or vertebral artery stenosis MRI brain w and w/o: Stable IPH/IVH. TTE: EF 60-65%; no PFO LDL 105, A1c 10.5 -Stroke Etiology (TOAST Criteria): Likely hemorrhagic transformation of recent R CASE ASSEMBLER infarct which is likely cardioembolic in nature -Antiplatelet plan: not started due to acute hemorrhage -Statin therapy: Atorvastatin 40 mg daily -Blood Pressure goal: SBP <160 -Continue to hold Eliquis for now Hemorrhagic Stroke Core Measures -[facility] on admission 16 -Patient has been started [...] for euvolemia now -Nocturnal BiPAP Sohan Sawyer APRN-BEET TOPPER 10/22/2024 12:10 PM VITAL SIGNS Temp: [96.6 [...] 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 No progressive mass effect. Stable [...] Electronically Signed By: Annamarie Del Castillo M.D., [facility] on 10/18/2024 10:13 AM XR CHEST 1 [...] discussed the critical finding/s of possible left CASE ASSEMBLER occlusion with Kristen Ramon MD on 10/16/2024 8:57 PM. I personally viewed and interpreted these images and I have reviewed and approved this report. STROKE HEAD-STROKE ALERT ONLY Final Result IMPRESSION: 1. Acute left temporo-occipital parenchymal hemorrhage, likely hemorrhagic transformation of recent CASE ASSEMBLER territory infarct. 2. Trace interventricular hemorrhage. 3. [...] 750 mg Intravenous Q12HNS Cosigned by Elizabeth Agosto MD at 10/22/2024 3:27 PM EDT * Sergei Atkins, [facility] - 10/22/2024 11:23 AM EDT Department of [...] with any further questions. Name: Sergei Atkins RPH Phone: [phone] Date/Time: 10/22/2024 11:23 AM * Rochelle Rosa, MEDICAL RECORDS AUDITOR-BEET TOPPER - 10/22/2024 9:13 AM EDTSummary: Consult Sign Off Images from the original note were not included. [facility] Inpatient Diabetes Consults - Progress Note- For provider station cook: QGENDA : TEAM 2 Assessment Uncontrolled type [...] to discharge for final recs. For provider station cook, please use QGENDA : TEAM 2 Clinical Practice Guideline "Inpatient Management of Diabetes Mellitus (DM): Non- Adults" Plan Hospital Plan: Continue current regimen Basal: Glargine 28 units at 1200 Prandial: Insulin lispro 1 unit per 6 grams of carbs ACHS and PRN Correction: Insulin lispro 1 unit per 25 mg/dl greater than 150 mg/dl ACHS Education: following with clinical staff educator. Aware will need prandial insulin at [...] FixedvsFlexible: Fixed: U100 Lispro Pens with [place] MAX DAILY DOSE 60 10 Units for Large Meal or 5 Units for Small Meal PLUS Correction Scale Subcutaneous every meal andat bedtime Correction Scale: (Copy and paste into "Note to Pharmacy") Custom: 151-200 = 2 units 201-250 = 4 units 251-300 = 6 units 301-350 = 8 units 351-400 = 10 units Diabetes Supplies: Glucose monitoring supplies for [facility]: Glucose test strips: dispense 150 with 1 [...] Auto-injector Follow up needed: Does not need [facility] Endocrinology appt PCP after discharge from facility [...] left shunt with agitated saline. * Yahaira Alcocer OT - 10/22/2024 8:17 AM EDT Acute Occupational Therapy Treatment Prior Gross Functional Mobility: independent Current AM-PAC score(s): CURRENT AM-PAC Activity Raw Score: 11 Based on the above AM-PAC score(s), and OT clinical judgment, discharge destination recommendation is: [facility] Facility Barriers to discharge home: Patient needs [...] to directions, Difficulty dividing attention Memory: Decreased 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 memory, Decreased short term memory Problem Solving: [...] bilateral UEs.) Mobility Assessment/Intervention: Scooting Bridging Mobility Brown Level: Scooting/Bridging: dependent (less than 25% patient effort) Physical Assist: Scooting/Bridgin person assist Bed Features/Set-up: Scooting/Bridging: Flat Supine to Sit Mobility Brown Level: Supine->Sit: maximum assist (25% patient effort) [...] limited by cognition/comprehension. Sit to Supine Mobility Brown Level: Sit->Supine: maximum assist (25% patient effort) [...] Little Assistance CURRENT AM-PAC Activity Raw Score: 11 CURRENT AM-PAC Activity Functional Limitation/Modifier: 70.42% Currently Impaired in [...] ASSESSMENT AND PLAN Neuro: (10/16/2024) Acute Left CASE ASSEMBLER CVA Left temporal ICH likely hemorrhagic transformation [...] Temperooccipital ICH likely hemorrhagic transformation of left CASE ASSEMBLER stroke, ICH, mild mass effect - 10/17: [...] 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 No progressive mass effect. - [...] 12 O2 Sat (%): 97 % (10/22 0630) O2 Device: Nocturnal CPAP/BIPAP (10/22 0400) - Goal SpO2 >92%; wean FiO2 as tolerated - [id number], encourage pulmonary toileting - Duoneb Q6H PRN [...] placed 10/17 for close I/O monitoring; discontinue 5/5 Intake/Output Summary (Last 24 hours) at 10/22/2024 [...] 72 hours. - DIET CARB CONTROLLED - [place] Swallow Screening Result: passed=cleared for oral intake [...] ID and Podiatry consulted - 10/18 OSH Knowledge Management Consultant who did fixation Dr. Ramon Garcia DPM, [...] updated at bedside [x] Get lines out [place]: Beard: inserted 10/17, (indication: diuresis, fluid goals), discontinue 10/21 Rectal tube: Enteral access: Central lines: Central Line LDAs Active Central Line Access Devices Name Placement date Placement time Site Days PICC Line - Single Lumen 10/16/24224910/16/242249 -- 5 Central Line Indications: Medication Requiring Central Venous Administration - 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 antibiotics Left PICC line from OSH If [...] the assigned neurocritical care provider (resident, fellow, SKIN THERAPIST, orPA) or page/call the corresponding number below NCC1 (Beds [id number]): [place] # [phone], pager #[phone] NCC2 (Beds 5361-9673, 12 Jing, and overflow): [place] #: [phone], pager #[phone] Cosigned by Daniel Dominique MD at 10/22/2024 [...] therapeutic anticoagulation and antiplatelets - Atorvastatin - PT/OT/HEAT TRANSFER TECHNICIAN evaluation - Continue gabapentin for peripheral neuropathy [...] 32min Daniel Dominique * Olivier Kaufman Jr., [facility] - 10/22/2024 12:56 AM EDT Department of [...] any further questions. Name: Olivier Kaufman Jr. [facility] Phone: [phone] Date/Time: 10/22/2024 12:56 AM * Sangita Valenzuela, [facility] - 10/21/2024 4:42 PM EDT Department of [...] further questions. Name: Sangita Valenzuela RPH Phone: [phone] Date/Time: 10/21/2024 4:42 PM * Germain Valle MD - 10/21/2024 10:02 AM EDT Images from the original note were not included. [facility] Inpatient Diabetes Consults - Progress Note- For provider station cook: QGENDA : TEAM 2 Assessment Uncontrolled type [...] than 150 mg/dl ACHS Education: following with clinical staff educator. Aware will need insulin at discharge. [...] FixedvsFlexible: Fixed: U100 Lispro Pens with [place] MAX DAILY DOSE 60 10 Units for [...] assessment and plan as documented by the SKIN THERAPIST with my changes/additions added. 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 - DIET CARB CONTROLLED - [place] Swallow Screening Result: passed=cleared for oral intake [...] ID and Podiatry consulted - 10/18 OSH Knowledge Management Consultant who did fixation Dr. Ramon Garcia DPM, [...] Mobility [x] Family Engagement Primary Emergency Contact: AlisonJazzyNorma (HCPOA) Last updated: 10/21 family updated at bedside [x] Get lines out [place]: Beard: inserted 10/17, (indication: diuresis, fluid goals), discontinue 10/21 Rectal tube: Enteral access: Central lines: Central Line LDAs Active Central Line Access Devices Name Placement date Placement time Site Days PICC Line - Single Lumen 10/16/24224910/16/242249 -- 4 Central Line Indications: Medication Requiring Central Venous Administration - custodial antibiotics Left PICC line from OSH If [...] (PICC) Discussed with NCCU Attending, AHSAN Dick 10/21/24 7:42 AM Check the treatment team to find the assigned neurocritical care provider (resident, fellow, SKIN THERAPIST, orPA) or page/call the corresponding number below NCC1 (Beds [phone]): [place] # [phone], pager #[phone] NCC2 (Beds [phone], 12 Jing, and overflow): [place] #: [phone], pager #[phone] * Maryann Douglas [facility] - 10/20/2024 12:19 PM EDT Department of [...] further questions. Name: Maryann Douglas RPH Phone: [phone] Date/Time: 10/20/2024 12:19 PM * Germain Valle MD - 10/20/2024 10:36 AM EDT Images from the original note were not included. [facility] Inpatient Diabetes Consults - Progress Note- For provider station cook: QGENDA : TEAM 2 Assessment Uncontrolled type [...] than 150 mg/dl ACHS Education: following with clinical staff educator. Aware will need insulin at discharge. [...] FixedvsFlexible: Fixed: U100 Lispro Pens with [place] MAX DAILY DOSE 60 10 Units for [...] assessment and plan as documented by the SKIN THERAPIST with my changes/additions added. 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 - Afib: Hold AC for now given ICH Renal/: No Current Issues Fluid Balance: - Goal: -1 L to -2 L - 5/3 Diamox 500 mg; dose with Lasix over [...] 72 hours. - DIET CARB CONTROLLED - [place] Swallow Screening Result: passed=cleared for oral intake [...] Anemia of Chronic Disease Recent Labs 10/19/24 0014 10/20/24 0003 WBC 8.75 6.78 RBC 4.26* 4.10* [...] ID and Podiatry consulted - 10/18 OSH Knowledge Management Consultant who did fixation Dr. Rmaon Garcia DPM, reach out 10/19 for surgical [...] Indications: Medication Requiring Central Venous Administration - 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 antibiotics Left PICC line from OSH If [...] the assigned neurocritical care provider (resident, fellow, SKIN THERAPIST, orPA) or page/call the corresponding number below NCC1 (Beds [phone]): [place] # [phone], pager #[phone] NCC2 (Beds 4273-7861, 12 Jing, and overflow): Russ #: [phone], pager #[phone] * Yahir Munguia [facility] - 10/19/2024 7:11 PM EDT Department of [...] further questions. Name: Yahir Munguia RPH Phone: [phone] Date/Time: 10/19/2024 7:11 PM * Amelia Patrick APRN-BEET TOPPER - 10/19/2024 1:35 PM EDT [facility] Inpatient Diabetes Consults - Progress Note- For provider station cook: QGENDA : TEAM 2 Assessment Uncontrolled type [...] than 150 mg/dl ACHS Education: following with clinical staff educator. Aware will need insulin at discharge. [...] FixedvsFlexible: Fixed: U100 Lispro Pens with [place] MAX DAILY DOSE 60 10 Units for [...] Number of Occurrences: 1 Current Regimen: Basal: [id number] units Q1500 Prandial: none NPO Enteral feeding: [...] shunt with agitated saline. * Sangita Valenzuela RPH - 10/19/2024 1:11 PM EDT Department of Pharmacy Renal Documentation Note Patient: Lani Zaragoza Room/Bed: 1040/A Assessment and Plan: Pertinent Lab values: Estimated [...] any questions, Name: Sangita Valenzuela RPH Phone: [phone] Date/Time: 10/19/2024 1:12 PM * iDllan Guzman MD - 10/19/2024 10:41 AM EDT I have independently seen and examined the patient on 10/19/24. I agree with the history, examination, assessment and plan as documented by the SKIN THERAPIST with my changes/additions added. 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 [...] Temperooccipital ICH likely hemorrhagic transformation of left CASE ASSEMBLER stroke, ICH, mild mass effect - 10/17: [...] 10 O2 Sat (%): 97 % (10/19 101) O2 Device: nasal cannula (10/19 1010) Flow (L/min): 2 (10/19 1010) Oxygen Concentration (%): 40 (10/19 08) pH/PCO2/PO2/HCO3: 7.40/62/75/38 (10/19 809) - Goal SpO2 >92%; wean FiO2 as tolerated - [id number], encourage pulmonary toileting - Duoneb Q6H PRN [...] 10/17 trop repeat for air hunger: - 10/17 BNP: 962 - 10/16 ECG: [...] TP 7.2 - DIET CARB CONTROLLED - [place] Swallow Screening Result: passed=cleared for oral intake - Monitor airway closely while still requiring intermittent BIPAP, okay for small snacks with supervision when BIPAP is off Bowel regimen: - Last Bowel Movement: (ASSOCIATE MUSIC PROFESSOR) - Senna, miralax Stress ulcer prophylaxis: - not indicated Endo: DM Type 2 - Goal blood glucose 140-180 - 10/17 Endo consulted - Current regimen - Insulin glargine 28 U Q24H - Insulin SSI Q6H Recent Labs 10/16/24204410/16/24225710/18/24 1345 10/18/24 1745 10/18/24 2327 10/19/24 0014 GLUCOSE 224* < > 187* 236* 143 138 HGBA1C 10.5* -- -- -- -- -- < > = values in this interval not displayed. ID: Wound Dehiscence - Chronic Right foot s/p debridement with podiatry Podiatry and ID consulted for osteomyelitis in RLE Recent Labs 10/16/24225710/17/24 0044 10/18/24 0022 10/19/24 0014 WBC 12.56* [...] Heme/Onc: Anemia of Chronic Disease Recent Labs 10/16/24204410/16/24225710/18/24 0022 10/18/24 1345 10/19/24 0014 WBC 13.39* [...] ID and Podiatry consulted - 10/18 OSH Knowledge Management Consultant who did fixation Dr. Ramon Garcia DPM, reach out 10/19 for surgical recommendations to pass onto [facility] Podiatry team - Imaging: - R foot xray 3 views: ordered, P Fall Risk: - Assessed for patient fall risk and discussed safety measures during rounding. Social/Dispo: - Code status: Full Code - /: Medications reconciled - Discharge planning per PCRM/ALVARADO. Complexity. Obesity, Class III Body mass index is 53.07 kg/m . - Follow with PCP for dietary and lifestyle modifications. Wound Documentation Any conditions listed below are present on admission unless otherwise specified. .Hypertension, Uncomplicated - Ischemic CVA, Location: Left CASE ASSEMBLER - hemorrhagic transformation ICU Checklist: [x] Assess [...] Family Engagement Primary Emergency Contact: Norma Rosas ([facility]) Last updated: 10/19 family updated over the [...] the assigned neurocritical care provider (resident, fellow, SKIN THERAPIST, orPA) or page/call the corresponding number below NCC1 (Beds [phone]): [place] # [phone], pager #[phone] NCC2 (Beds [phone], 12 Jing, and overflow): Russ #: [phone], pager #[phone] * Rogelio Gan RCP - 10/19/2024 10:20 [...] 98 % (10/19 0500) O2 Device: BIPAP (10/20 399) Flow (L/min): 3 (10/19 1999) Oxygen Concentration (%): 40 (10/20 147) I/O last 3 completed shifts: In: 1932.2 [P.O.:600; I.V.:569.3; IV Piggyback:762.9] Out: 5760 [Urine:5760] ICP: No data recorded WBC/Hgb/Hct/Plts: 8.75/11.3/35.8/250 (10/19 13) Na/K+/Phos/Mg/Ca: 143/3.5/3.3/2.0/-- (10/19 13) Bun/Creat/Cl/CO2/Glucose: 12/0.60/100/37/138 (10/19 13) Imaging: moderate multifocal left temporo-occipital parenchymal hemorrhage. Associated white matter hypoattenuation, with multifocal loss of duffy-white differentiation, predominantly localizing to the left CASE ASSEMBLER territory. This is associated with overlying sulcal [...] clinical advancement; NCCU primary Please page [phone] ([phone]) with questions. Principal Problem: Ischemic cerebrovascular accident [...] unless otherwise specified. . * Yahir Munguia [facility] - 10/18/2024 6:11 PM EDT Department of [...] further questions. Name: Yahir Munguia RPH Phone: [phone] Date/Time: 10/18/2024 6:14 PM * ROSALINDA Kwong - 10/18/2024 2:35 PM EDT Care Management Progress Note Per medical team, anticipated that patient will require custodial care at discharge. SNF and familynotified. Family (son Rogelio) is agreeable to Medicaid process. Financial updated. Incapacity form has been completed by . to assist family with Medicaid application. SW [...] for any emerging needs. MISTY Mercer, ROSALINDA [employer] Available by Secure Chat * Dillan Guzman MD - 10/18/2024 10:47 AM EDT I have independently seen and examined the patient on 10/18/24. I agree with the history, examination, assessment and plan as documented by the SKIN THERAPIST with my changes/additions added. Patient is a 69 yo M with a hx of poorly controlled DM2 with neuropathy, HTN, TODD, pafib on Eliquisthat was held for surgical procedure, R heel diabetic ulcer with osteomyelitis S/p excisional debridement down to bone on 10/11 with podiatry, MRSMagalie bacteremia on Vancomycin and meropenem with repeatedexcisional [...] all anticoagulation and antiplatelets - Atorvastatin - PT/OT/HEAT TRANSFER TECHNICIAN evaluation - Continue gabapentin for peripheral neuropathy [...] and other supportive care as per the SKIN THERAPIST note from the same day This patient [...] Dillan Guzman MD Neurocritical Care Attending * Santa Kuo, EVETTE - 10/18/2024 9:46 AM EDT Acute Care HEAT TRANSFER TECHNICIAN Speech/Language/Cognitive Evaluation Best mode of Communication: spoken language (regular speech) Communication Strategies: -Provide repetitions as needed Discharge Recommendations: Based on the below outcome measures/assessment score(s) and HEAT TRANSFER TECHNICIAN clinicaljudgment, discharge destination recommendation is: [facility] Facility Barriers to discharge home: 1:1 assist needed for IADL's including medication management and finances Supporting factors for discharge setting: (Impaired language/reading skills for iADLs) Acute HEAT TRANSFER TECHNICIAN Outcomes Tracking Communicate basic wants and needs?: [...] pt ability to read letters/words s/p L CASE ASSEMBLER CVA, Ltemporal ICH. Pt reporting frustrations with anomia, and though able to eventually communicate wants/needs within evaluation, suspect delayed responses relating to reported word finding difficulties.Mild receptive deficits with higher level yes/no and command following. Limited assessment of reading/writing. 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 Vocation: retired Residence: House (One-level home.) Lives With: alone Per HEAT TRANSFER TECHNICIAN IADL History IADLs: independent Primary Language: Cook Islander Home Management Skills: independent Medication Management: independent [...] denies receiving assistance for any IADL engagement. HEAT TRANSFER TECHNICIAN Existing Precautions/Restrictions: NPO Respiratory Status: O2 Sat [...] 0 Asthenia (A): 1 Strain (S): 0 HEAT TRANSFER TECHNICIAN Outcomes: The [place] Aphasia Screening Test (MAST) was developed as [...] Subscale: 36/50 Total Index Score: 74/90 Acute HEAT TRANSFER TECHNICIAN Goals Plan of Care by EVETTE Spann at 10/18/2024 9:47 AM Version 1 of 1 Problem: HEAT TRANSFER TECHNICIAN - Cognition Goal: Metacognition - Patient will identify at least x2-3 deficits related to medical condition andhow deficits will impact ability to return home with fading cues to improve safety and independence Outcome: Ongoing Problem: HEAT TRANSFER TECHNICIAN - Language Goal: Word Retrieval Strategies for [...] of session: none altered Needs in reach. HEAT TRANSFER TECHNICIAN Evaluation and Treatment Time Speech Eval - Sound Production W/Lang Comp and Exp 43425: 26 Upon discontinuation of Acute Care Speech Therapy Services or patient discharge from the hospital this note represents the current Speech Therapy Discharge Summary * Amelia Patrick APRN-MICHAEL - 10/18/2024 9:05 AM EDT [facility] Inpatient Diabetes Consults - Progress Note- For provider station cook: QGENDA : TEAM 2 Assessment Uncontrolled type [...] FixedvsFlexible: Fixed: U100 Lispro Pens with [place] MAX DAILY DOSE 60 tbd Units for [...] NPO Meds:: with meds Current Regimen: Basal: Thgteyps08 units Q1500 Prandial: none NPO Enteral feeding: [...] Hemorrhage Note IDENTIFYING INFORMATION Lani Zaragoza MR# [id number] 10/18/2024 HISTORY OF PRESENT ILLNESS Lani Zaragoza [...] parenchymal hemorrhage, likely hemorrhagic transformation of recent CASE ASSEMBLER territory infarct CTA brain/neck: Equivocal for left CASE ASSEMBLER occlusion. No significant carotid or vertebral artery [...] and PM&R if indicated. 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 [...] Temperooccipital ICH likely hemorrhagic transformation of left CASE ASSEMBLER stroke, ICH, mild mass effect - 10/17: [...] SpO2 >92%; wean FiO2 as tolerated - [id number], encourage pulmonary toileting - Duoneb Q6H PRN [...] 10/17 trop repeat for air hunger: - 10/17 BNP: 962 - 10/16 ECG: [...] electrolytes replaced per NCCU protocol Recent Labs 10/16/24225710/17/24 1144 10/18/24 0022 10/18/24 0411 10/18/24 0540 10/18/24 1345 SODIUM 136 < > 140 < > 142 142 POTASSIUM 3.8 < > 3.9 -- -- 3.8 CHLORIDE 97* < > 103 -- -- 102 CO2 29 < > 29 -- -- 34* BUN [...] (IDDSI 6) Liquid Thin (IDDSI 0) - [place] Swallow Screening Result: passed=cleared for oral intake - Monitor airway closely while still requiring intermittent BIPAP, okay for small snacks with supervision when BIPAP is off Bowel regimen: - Last Bowel Movement: (ASSOCIATE MUSIC PROFESSOR) - Senna, miralax Stress ulcer prophylaxis: - not indicated Endo: DM Type 2 - Goal blood glucose 140-180 - 10/17 Endo consulted - Current regimen - Insulin glargine 32 U Q24H - Insulin SSI Q6H Recent Labs 10/16/24204410/16/24225710/18/24 0022 10/18/24 0027 10/18/24 0538 10/18/24 1345 [...] Heme/Onc: Anemia of Chronic Disease Recent Labs 10/16/24204410/16/24225710/18/24 0022 10/18/24 1345 WBC 13.39* 12.56* 9.62 [...] ID and Podiatry consulted - 10/18 OSH Knowledge Management Consultant who did fixation Dr. Ramon Garcia DPM, [...] .Hypertension, Uncomplicated - Ischemic CVA, Location: Left CASE ASSEMBLER - hemorrhagic transformation ICU Checklist: [x] Assess [...] Family Engagement Primary Emergency Contact: Norma Rosas ([facility]) Last updated: 10/18 family updated at bedside after rounds, NCCU [...] the assigned neurocritical care provider (resident, fellow, SKIN THERAPIST, orPA) or page/call the corresponding number below NCC1 (Beds 9194-0396): [place] # [phone], pager #[phone] NCC2 (Beds 9972-8268, 12 Jing, and overflow): Russ #: [phone], pager #[phone] * Tony Deleon MD - 10/18/2024 6:17 [...] 4 (10/19 419) Oxygen Concentration (%): 40 (10/19 399) I/O last 3 completed shifts: In: 3334.8 [I.V.:2384.3; IV Piggyback:950.5] Out: 2435 [Urine:2435] ICP: No data recorded WBC/Hgb/Hct/Plts: 9.62/11.2/34.5/259 (10/18 21) Na/K+/Phos/Mg/Ca: 143/3.9/3.4/2.0/-- (10/18 21-10/18 410) Bun/Creat/Cl/CO2/Glucose: 12/0.52/103/29/212 (10/18 21-10/18 537) Imaging: moderate multifocal left temporo-occipital parenchymal hemorrhage. Associated white matter hypoattenuation, with multifocal loss of duffy-white differentiation, predominantly localizing to the left CASE ASSEMBLER territory. This is associated with overlying sulcal [...] clinical advancement; NCCU primary Please page [phone] ([phone]) with questions. 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 [...] Temperooccipital ICH likely hemorrhagic transformation of left CASE ASSEMBLER stroke, ICH, mild mass effect - 10/17: [...] SpO2 >92%; wean FiO2 as tolerated - [id number], encourage pulmonary toileting - Duoneb Q6H PRN [...] 6.25 mg Q12H - / TTE: read 10/16 troponin: 10/17 trop repeat for air hunger: 10/17 [...] electrolytes replaced per NCCU protocol Recent Labs 10/16/24204410/16/24 2258 10/17/24 1144 10/17/24 1306 10/17/24 1725 [...] 7.2 - DIET NPO with meds - [place] Swallow Screening Result: passed=cleared for oral intake - Keeping NPO for airway watch, on BIPAP, re-evaluate on 10/18/24 Bowel regimen: - Last Bowel Movement: (ASSOCIATE MUSIC PROFESSOR) - Senna, miralax Stress ulcer prophylaxis: - [...] consulted for osteomyelitis in RLE Recent Labs 10/16/24204410/16/24225710/17/24 0044 WBC 13.39* 12.56* [...] Heme/Onc: Anemia of Chronic Disease Recent Labs 10/16/24204410/16/242257 WBC 13.39* 12.56* RBC 4.75 4.65 HGB 12.6* 12.6* HCT 37.5* 37.0* PLATELET 307 272 PT 14.5* -- PTT 33.6 -- INR 1.1 -- - Goal plt >100, INR <1.4, Hgb >7 DVT prophylaxis: - SCd, pharmacological prophylaxis after follow up CTH - No Eliquis for at least 14 days from [facility] Musc: RLE chronic wound - PT/OT consulted [...] .Hypertension, Uncomplicated - Ischemic CVA, Location: Left CASE ASSEMBLER - hemorrhagic transformation ICU Checklist: [x] Assess [...] Family Engagement Primary Emergency Contact: Norma Rosas ([facility]) Last updated: 10/17 family updated at bedside after rounds [x] Get lines out [place]: inserted 10/16, (indication: HTN) Beard: inserted 10/17, [...] the assigned neurocritical care provider (resident, fellow, SKIN THERAPIST, orPA) or page/call the corresponding number below NCC1 (Beds [phone]): [place] # [phone], pager #[phone] NCC2 (Beds 6115-8488, 12 Jing, and overflow): [place] #: [phone], pager #[phone] * ROSALINDA Kwong - 10/17/2024 3:44 PM EDT Reason for Consult: Discharge Planning Consulted By: Medical Team Level(s) of Care Discussed: SNF Patient and/or Rocket Engine Mechanic's Preferred Geographic Area for Discharge: [address] Patient and/or Rocket Engine Mechanic's Preference for Providers to Include? [facility] Patient and/or Rocket Engine Mechanic's Preference for Providers to Exclude? N/A Patient and/or Rocket Engine Mechanic's Discussion: Discussed referral process with the patient's son/1st alt OSCAR Mercado ([phone]). Who confirmedpatient was reserved with SNF [facility] at [facility]. Rogelio is agreeable to have a placement referral initiated to [facility]. MISTY Mercer, ROSALINDA [employer] Available by Secure Chat * ROSALINDA Kwong - 10/17/2024 3:36 PM EDT Discharge Planning Assessment Is the patient able to participate in the assessment?: No Explanation of why patient is unable to participate: AMS Care Management Plan IA completed with patient's son Rogelio at bedside. Patient with AMS. Anticipated discharge dispo to SNF - referral sent in [facility] to [facility] [place] [place]. [facility]. Family remains in agreement to [...] documentation on file. Patient's sister Norma Warren ([phone]) is listed as HCPOA and patient's son Rogelio Zaragoza ([phone]) is listed as 1st alternate HCPOA. Initial Discharge Planning Expected Discharge Disposition: [facility] Facility Transportation Available for Discharge: Ambulance Anticipated DME: unknown at this time Anticipated Services at Discharge: Occupational Therapy, Physical Therapy, Outpatient follow up, Speech Therapy, [facility] Patient Assessment Completed: Initial Legal Next of Kin Does the patient have a Guardian?: No Spouse: No Adult Child(rory), List All Adult Children: Yes Name and Contact information: Rogelio Zaragoza ([phone]) Would you like to add additional adult children?: No Parent(s) - List All Living Parents: No Adult Sibling(s), List All Adult Siblings: Yes Name and Contact information: Norma Warren ([phone]) Would you like to add additional adult [...] Is the patient on Anticoagulation? 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 : No MISTY Mercer, ROSALINDA [employer] Available by Secure Chat * Sangita Valenzuela, [facility] - 10/17/2024 2:24 PM EDT Department of Pharmacy Admission Medication Reconciliation Note Patient: Lani Zaragoza Room/Bed: 1040/A I have reviewed the patient's home medication list with the following sources Patient's family member/caregiver (Son, sister) and Pharmacy (Name Message Bus ). The home medication list status is: in-progress. This medication list has been updated based on pharamcy records carroll - patient's son and sister unable to confirm all home medications and medications allergies - please confirm with the patient when able. All changes to the home medication list have been updated inIHIS. Updated ASSOCIATE MUSIC PROFESSOR Med List: Prior to Admission Medications Prescriptions [...] Patient's son unsure of any medication allergies. [facility] does not have any allergies on file for the patient and notably the patient has filled Augmentin twice in the past month (09/12/24 and 10/14/24) Eliquis last filled 06/19/25 for a 30 day supply - unclear if patient still taking Please feel free to contact me with any further questions. Name: Sangita Valenzuela [facility] Phone #: [phone] Date/Time: 10/17/2024 2:24 PM Time Spent: 20 minutes * EVETTE Spann - 10/17/2024 1:10 PM EDT Speech Language Pathology Attempt Note 10/17/2024 HEAT TRANSFER TECHNICIAN Therapy Completed: Attempted speech/lang/cog Attempted Reason: Patient is not medically optimized to tolerate therapy program (requiring BiPap) Received consult for swallow evaluation. However, patient passed [place] Swallow Screening by nursing.Per conversation with medical team, currently holding PO diet pending improved respiratory status. Goal for diet initiation following stable respiratory status. Swallow eval by HEAT TRANSFER TECHNICIAN will not be completed at this time unless this service notified of change in status or re-consult for swallow eval placed. No charge Santa Kuo MA, [facility]-HEAT TRANSFER TECHNICIAN Pager: [phone] License: [email or web address] Email: [email or web address] Time In: 1310 Time Out: 1310 Total Visit Time: 0 minutes Total Treatment Time (skilled, billable minutes): 0 minutes * AHSAN Chavez - 10/17/2024 11:55 AM EDT Neurovascular Stroke Service Intracerebral Hemorrhage Note IDENTIFYING INFORMATION Lani Zaragoza MR# [id number] 10/17/2024 HISTORY OF PRESENT ILLNESS Lani Zaragoza [...] parenchymal hemorrhage, likely hemorrhagic transformation of recent CASE ASSEMBLER territory infarct CTA brain/neck: Equivocal for left CASE ASSEMBLER occlusion. No significant carotid or vertebral artery stenosis MRI brain w and w/o: Pending TTE: Pending LDL 105, A1c 10.5 -Stroke Etiology (TOAST Criteria): Work up pending -Antiplatelet plan: not started due to acute hemorrhage -Statin therapy: Will need to start if found to have acute ischemic stroke -Blood Pressure goal: SBP <140 -Continue to hold Eliquis for now Hemorrhagic Stroke Core Measures -ORISS on admission 16 -Patient has been started [...] PT/OT/Speech and PM&R if indicated. Cory Guzman APRN-BEET TOPPER 10/17/2024 12:50 PM VITAL SIGNS Temp: [97.3 [...] assessment and plan as documented by the SKIN THERAPIST with my changes/additions added. Patient is a [...] all anticoagulation and antiplatelets - Atorvastatin - PT/OT/HEAT TRANSFER TECHNICIAN evaluation - Continue home gabapentin for peripheral [...] and other supportive care as per the SKIN THERAPIST note from the same day This patient [...] Guzman MD Neurocritical Care Attending * Sangita Valenzuela [facility] - 10/17/2024 10:35 AM EDT Department of Pharmacy Antimicrobial Stewardship Documentation Note Patient: Lani Zaragoza Room/Bed: 1040/A Restricted Antimicrobial Approval - Crystallography Teacher Information about restricted antimicrobials at [facility] can be found here: Restricted Antimicrobial Guide. [...] further questions. Name: Sangita Valenzuela RPH Phone: [phone] Date/Time: 10/17/2024 10:36 AM * EVETTE Spann - 10/17/2024 8:01 AM EDT Speech Language Pathology Attempt Note 10/17/2024 Swallow POC Attempted Reason: Other (see comments) (pt passed trout swallow screen, pending on clarification from medical team if formal swallow evaluation with HEAT TRANSFER TECHNICIAN warranted.) EVETTE Spann Time In: 800 Time Out: 800 Total Visit Time: 0 minutes Total Treatment Time (skilled, billable minutes): 0 minutes * Yahaira Alcocer OT - 10/17/2024 7:57 AM EDT Acute Occupational Therapy Evaluation Prior Gross Functional Mobility: independent Current AM-PAC score(s): CURRENT AM-PAC Activity Raw Score: 12 Based on the above AM-PAC score(s) and OT clinical judgment, discharge destination recommendation is: [facility] Facility Barriers to discharge home: Lack of [...] mobilizing in community; 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 Vocation: retired [...] to directions, Difficulty dividing attention Memory: Decreased custodial memory, Decreased short term memory Problem Solving: [...] LEs (right>left).) Mobility Assessment: Scooting Bridging Mobility Brown Level: Scooting/Bridging: dependent (less than 25% patient effort) Physical Assist: Scooting/Bridgin person assist Bed Features/Set-up: Scooting/Bridging: Flat Supine to Sit Mobility Brown Level: Supine->Sit: maximum assist (25% patient effort) [...] limited by cognition/comprehension. Sit to Supine Mobility Brown Level: Sit->Supine: maximum assist (25% patient effort) Physical Assist: Sit->Supine: 2 person assist Bed Features/Set-up: Sit->Supine: Flat, Use of bed rail Skilled Rationale: Cues for increased safety, Initiation and execution of task, Technique of activity, Tactile cues, Verbal cues, Hand placement, Sequencing, Positioning Skilled Intervention/Details: Sit->Supine: Cues for initiation/sequencing/safety, as well as assisting with upper trunk support and LEs. Outcome Score(s): CURRENT [facility] Daily Activity Inpatient Short Form Putting on/Taking Off Lower Body Clothin - Total Assistance Bathin - A Lot of Assistance Toiletin - Total Assistance Putting on/Taking Off Upper Body Clothin - A Lot of Assistance Groomin - A Little Assistance Eatin - A Little Assistance CURRENT [facility] Activity Raw Score: 12 CURRENT [facility] Activity Functional Limitation/Modifier: 66.57% Currently Impaired in Daily Activity- CL Assessment & Plan: Patient was admitted for debridement of right diabetic foot ulcer and presenting with change in mental status and found to have a left CASE ASSEMBLER CVA and left temporal IPH and seen [...] (comprehensive assessments w/multiple treatment options) Time In: 756 Time Out: 812 Total Visit Time: 16 minutes Total Treatment [...] is a good candidate for discharge to [facility] Facility Barriers to discharge home: Patient needs [...] mobilizing in community; 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 Vocation: retired [...] 2-3/5 Mobility Assessment: Supine to Sit Mobility Brown Level: Supine->Sit: maximum assist (25% patient effort) Physical Assist: Supine->Sit: 2 person assist Bed Features/Set-up: Supine->Sit: Head of bed elevated Skilled Rationale: Verbal cues, Tactile cues, Hand placement, Technique of activity Sit to Supine Mobility Brown Level: Sit->Supine: maximum assist (25% patient effort) [...] Intervention/Details: retropulsive in sitting Outcome Score(s): CURRENT [facility] Basic Mobility Inpatient Short Form Turning over in bed: 1 - Total Assistance Moving from lying on back to sittin - Total Assistance Moving to and from bed to chair: 1 - Total Assistance Sitting/standing from chair: 1 - Total Assistance Walk in hospital room: 1 - Total Assistance Climbing 3-5 steps with a railin - Total Assistance CURRENT [facility] Mobility Raw Score: 6 CURRENT [facility] Mobility Functional Limitation: 100.00% Impaired in Basic Mobility Assessment & Plan: Patient was admitted for "Acute Left CASE ASSEMBLER CVA " (per chart review) and seen [...] duffy-white differentiation, predominantly localizing to the left CASE ASSEMBLER territory. This is associated with overlying sulcal [...] PVD, and TODD who was admitted to [facility] for debridement of right diabetic foot ulcer [...] clinical advancement; NCCU primary Please page [phone] ([phone]) with questions. Principal Problem: Ischemic cerebrovascular accident (CVA) Active Problems: ICH (intracerebral hemorrhage) Present on Admission: Ischemic cerebrovascular accident (CVA) ICH (intracerebral hemorrhage) Complexity. Obesity, Class III Body mass index is 53.07 kg/m . - Follow with PCP for dietary and lifestyle modifications. Wound Documentation Any conditions listed below are present on admission unless otherwise specified. . * Lawrence Ro [facility] - 10/17/2024 5:09 AM EDT Department of [...] clinically appropriate. I have contacted Olivier Kaufman [facility] and received a verbal [...] with any further questions. Name: Lawrence Ro RPH Phone: [phone] Date/Time: 10/17/2024 5:09 AM * Eboni Jackson RPH - 10/16/2024 8:53 PM EDT Department of [...] contact me with any further questions. Name: Ebnoi Jackson RPH Phone: [phone] Date/Time: 10/16/2024 8:53 PM * Eboni Jackson [facility] - 10/16/2024 8:50 PM EDT Department of Pharmacy Outside Facility Transfer Note Patient: Lani Zaragoza Room/Bed: E040/E040 Patient has transferred from the Emergency Department at [place] . I have contacted the facility and confirmed the following antimicrobial, antiepileptic, and anticoagulant medications were received by the patient prior to arrival at [facility]: Medications received: Both antibiotics initiated on 10/09 [...] with any further questions. Name: Eboni Jackson RPH Phone #: [phone] Date/Time: 10/16/2024 8:50 PM [facility]* Jacqueline Wiggins RN - 10/22/2024 [...] Resources: Link to diabetes education book in Cook Islander: DiabetesEducation.pdf Link to diabetes education book in Burmese: DiabetesEducation_SP.pdf Diabetes videos: https://www.[employer].net/RobotsAlive/Content/StdDocument.aspx?OEAAODZ=gixcom585 0 Link to order the diabetes education books (you would login and select your location, select the disease, diabetes and then you will see the option to order the book): [email or web address]://[place].EZ-Apps.[facility]/clinical/ pteducordering/Identity/Account/Login?ReturnUrl=/clinical/pteducordering Education Reviewed: [x]Regimen at discharge [x]Self-insulin [...] additional concerns arise. Thank you, Jacqueline Wiggins MEDICAL RECORDS AUDITOR-MARKETING INTELLIGENCE ANALYST Fountain Brush Assembler- Endocrinology, Diabetes & Metabolism * Jacqueline Wiggins [...] Resources: Link to diabetes education book in Cook Islander: DiabetesEducation.pdf Link to diabetes education book in Burmese: DiabetesEducation_SP.pdf Diabetes videos: https://www.[employer].net/RobotsAlive/Content/StdDocument.aspx?QMUZNDR= 0 Link to order the diabetes education books (you would login and select your location, select the disease, diabetes and then you will see the option to order the book): [email or web address]://[email or web address].EZ-Apps.[facility]/clinical/ pteducordering/Identity/Account/Login?ReturnUrl=/clinical/pteducordering DM History: Type of Diabetes: Type [...] assess and treat hyperglycemia [x]Sick day rules http://www.innovativetherapeutics.org/wp-content/uploads//RJVO-BEZ-Jixr-I nnovative-Therapeutics.pdf [x]Who to contact in an emergency [...] DM self-management education Thank you, Jacqueline Wiggins APRN-[facility] Fountain Brush Assembler- Endocrinology, Diabetes & Metabolism * Annika Sanders [...] Patient's son unsure of any medication allergies. [facility] [place] does not have any allergies on file [...] discussed the critical finding/s of possible left CASE ASSEMBLER occlusion with Kristen Ramon MD on 10/16/2024 8:57 PM. I personally viewed and interpreted these images and I have reviewed and approved this report. STROKE HEAD-STROKE ALERT ONLY Final Result IMPRESSION: 1. Acute left temporo-occipital parenchymal hemorrhage, likely hemorrhagic transformation of recent CASE ASSEMBLER territory infarct. 2. Trace interventricular hemorrhage. 3. [...] this consult, please page the podiatry resident station cook with questions. Cosigned by Nakul Escoto DPM at 10/17/2024 6:22 PM EDT * Toni Greene, - 10/17/2024 3:16 PM EDTAssociated Order(s): IP CONSULT TO INFECTIOUS DISEASE INFECTIOUS DISEASE CONSULTATION REQUESTING PHYSICIAN: Dillan Guzman MD REASON FOR CONSULTATION: follow-up with davidrialida from previous hospital CC: HISTORY OF PRESENT ILLNESS: Pt is a 69 y.o. male with PMHx of A-fib on Eliquis and DM (uncontrolled), was being treated an an OSH ([facility]) for a right heel wound infection with [...] Patient's son unsure of any medication allergies. [facility] [place] does not have any allergies on file [...] WBC/Hgb/Hct/Plts: 12.56/12.6/37.0/272 (10/16 2257) Bun/Creat/Cl/CO2/Glucose: 12/0.46/100/27/252 (10/17 130) Na/K+/Phos/Mg/Ca: 138/4.3/3.0/1.6/-- (10/16 2257-10/17 130) Latest Reference Range & Units 10/16/24 20:45 [...] parenchymal hemorrhage, likely hemorrhagic transformation of recent CASE ASSEMBLER territory infarct. 2. Trace interventricular hemorrhage. 3. [...] 8 hours at this time (ASP Code: BY1950) Please have pharmacy help with dosing of above antibiotics. These recommendations were also relayed to the primary team. ID Team 5 will continue to follow. Please call with questions. Thank you Toni Greene DO Attending Physician - Infectious Diseases [phone] * Satish Odom MD - 10/17/2024 1:25 PM EDTAssociated Order(s): IP CONSULT TO ENDOCRINOLOGY - DIABETES [facility] Inpatient Diabetes Consults - Initial Consult Note- For provider station cook: QGENDA : TEAM 2 Assessment Uncontrolled type [...] being seen for diabetes management consult at [facility] of the NCCU Service, Dr [...] 14 10/16/2024 No results found for: "TSH", "Q3NROGG", "T4FREE" Cardiac echo: EF = Results for [...] CT ANGIO BRAIN/NECK (Results Pending) A/P: Lani Zaragoza is a 69 y.o. [...] CBC: WBC/Hgb/Hct/Plts: 13.39/12.6/37.5/307 (10/16 2044) Chem: Bun/Creat/Cl/CO2/Glucose: 9/0.52/99/29/224 (10/16 2044) Electrolytes: Na/K+/Phos/Mg/Ca: 136/3.8/--/--/-- (10/16 2044) [...] demonstrating L temporal ICH, possibly conversion of CASE ASSEMBLER infarct. NSGY consulted. Pt will be admitted to NCCU for close monitoring. Plan L Temporal ICH, possible hemorrhagic conversion of CASE ASSEMBLER infarct -Please admit to Neurocritical care (NCC), [...] Continuous telemetry -PT, OT, Speech and social contact worker consults Staff: Dr. Mateo Moore, neurovascular fellow [...] Israel Schreiber MD documented in [facility] encounter[facility] Procedure note* AHSAN Junior - 10/16/2024 11:00 PM EDTAssociated Order(s): *ARTERIAL LINE Post-Procedure Diagnose(s): Nontraumatic cortical hemorrhage of left cerebral hemisphere *ARTERIAL LINE Procedure Date:: 10/17/2024 Start Time:: 23:00 EDT Performed by: AHSAN Junior Authorized by: AHSAN Junior Staff: Name of Biomedical Equipment Specialist: Yahaira Ohara RN Consent Verbal consent obtained The procedure was performed in an emergent situation Consent given by: patient Risks and benefits were discussed. Risks discussed: arterial occlusion, arterial puncture, bleeding, limb ischemia and pseudoaneurysm Alternatives discussed: alternative treatment Indications Indications: hemodynamic monitoring Griffin Protocol Patient does not state understanding of [...] 2+ pulse Patient Position: Supine Placement Technique: Seldinger Number of attempts: 1 Procedure stop date: [...] performed the procedure myself documented in this encounterOS[facility] Emergency department Note* Chiquita Rodriguez RN [...] tablet 5 mg 5 mg Oral Daily Francie Grier APRN-MICHAEL Calcium Gluconate 10 % injection 2 g 2 g Intravenous As directed PRN Francie Grier APRN-MICHAEL Or Calcium Gluconate 4 g in Sodium chloride 0.9%, with overfill 150 mL (total volume) IVPB 4 g Intravenous As directed PRN Francie Grier MEDICAL RECORDS AUDITOR-BEET TOPPER Insulin regular (HUMULIN R;NOVOLIN R) injection Subcutaneous Q6H Francie Grier APRN-BEET TOPPER 4 Unitsat 10/17/24 0001 And Dextrose 50% injection 7.5-25 g 7.5-25 g Intravenous As directed PRN Francie Grier APRN-MICHAEL And glucose (GLUTOSE) 40 % oral gel 1-2 Tube 1-2 Tube Oral As directed PRN Francie Grier APRN-BEET TOPPER fentaNYL Citrate (PF) (SUBLIMAZE) injection hydrALAZINE (APRESOLINE) injection 10 mg 10 mg Intravenous Q1H PRN Francie Grier APRN-BEET TOPPER Or hydrALAZINE (APRESOLINE) injection 20 mg 20 mg Intravenous Q1H PRN Francie Grier MEDICAL RECORDS AUDITOR-BEET TOPPER Labetalol (NORMODYNE) injection 10 mg 10 mg Intravenous Q1H PRN Francie Grier MEDICAL RECORDS AUDITOR-BEET TOPPER 10 mg at10/16/24 2359 Or Labetalol (NORMODYNE) injection 20 mg 20 mg Intravenous Q1H PRN Francie Grier MEDICAL RECORDS AUDITOR-MICHAEL Magnesium sulfate 4 g in sterile water 50 ml premix IVPB 4 g Intravenous As directed PRN Francie Grier MEDICAL RECORDS AUDITOR-MICHAEL Meropenem (MERREM) 1 g in sodium chloride 0.9% (MB PLUS) 100 mL (total volume) IVPB 1 g [id number] Miriam Denson MD 33.3 mL/hr at 10/16/24 2322 Rate Verify at 10/16/24 2322 Metoprolol (LOPRESSOR) tablet 25 mg 25 mg Oral Q12H Francie Grier MEDICAL RECORDS AUDITOR-BEET TOPPER 25 mg at 10/16/24 2358 niCARdipine in sodium chloride (CARDENE) 40 mg-0.83/200 ml premix IV infusion 0- 15 mg/hr Intravenous Continuous Christopher E Monroe, MD 62.5 mL/hr at 10/16/24 2322 12.5 mg/hr at 10/16/24 2322 Potassium chloride 20 mEq in sterile water 50 ml premix IVPB 20 mEq Intravenous As directed PRN Francie Lopezan, MEDICAL RECORDS AUDITOR-BEET TOPPER Or Potassium chloride (K-DUR) tablet ER 40-80 mEq 40-80 mEq Oral As directed PRN Francie A Johnan, MEDICAL RECORDS AUDITOR-BEET TOPPER Or Potassium Bicarb-Citric Acid (Effer-K) 20 MEQ effervescent tablets for oral solution 40-80 mEq 40-80 mEq Per NG tube As directed PRN Francie A Johnan, MEDICAL RECORDS AUDITOR-BEET TOPPER Or Potassium chloride 10 mEq in sterile water 100 ml premix IVPB 10 mEq Intravenous As directed PRN Francie Grier, MEDICAL RECORDS AUDITOR-BEET TOPPER Sodium chloride 0.9% IV solution 250 mL 250 mL Intravenous PRN Francie A Johnan, MEDICAL RECORDS AUDITOR-BEET TOPPER Sodium chloride 0.9% IV solution Intravenous Continuous Francie Juarez Grier, MEDICAL RECORDS AUDITOR- BEET TOPPER 1 mL/hr at 10/16/24 2324 New Bag at 10/16/24 2324 Sodium chloride 0.9% IV solution Intravenous Continuous Francie Juarez Grier, MEDICAL RECORDS AUDITOR-BEET TOPPER sodium phosphate 30 mmol in Sodium chloride 0.9%, with overfill 285 mL (total volume) IVPB 30 mmol Intravenous As directed PRN Francie Grier MEDICAL RECORDS AUDITOR-BEET TOPPER Or sodium phosphate 45 mmol in Sodium chloride 0.9%, with overfill 290 mL (total volume) IVPB 45 mmol Intravenous As directed PRN Francie Grier MEDICAL RECORDS AUDITOR-BEET TOPPER Vancomycin HCl in NaCl (Vancocin) 1,500 mg [...] discussed the critical finding/s of possible left CASE ASSEMBLER occlusion with Kristen Ramon MD on 10/16/2024 8:[address] STROKE HEAD-STROKE ALERT ONLY Final Result IMPRESSION: 1. Acute left temporo-occipital parenchymal hemorrhage, likely hemorrhagic transformation of recent CASE ASSEMBLER territory infarct. 2. Trace interventricular hemorrhage. 3. [...] management or test interpretation with external provider(s): Neurovascular, NSGY Risk Low: [] OTC drugs. [] Minor [...] injection 10 mg (10 mg Intravenous Given 10/16/24 6967) Or Labetalol (NORMODYNE) injection 20 mg ( Intravenous See Alternative 10/16/24 380) hydrALAZINE (APRESOLINE) injection 10 mg (has no [...] mg (1,000 mg Intravenous Given 10/16/242200) [facility] Mir[facility] Denson MD Resident 10/17/24 000 * Kevin Soriano MD - 10/16/2024 8:54 PM EDT ED Attending Note CHIEF COMPLAINT No chief complaint on file. HPI Lani Zaragoza is a 69 y.o. male who presents with concern for hemorrhagic stroke. Was inpatient at [facility] facility for foot wound/osteomyelitis. Had ex fix, [...] acute life and/or limb threats): hemorrhagic stroke, slate worker malignancy, lymphoma, mets EKG Interpretation Interpreted by emergency department physician Rhythm: atrial fibrillation - controlled Rate: normal [place]: normal Ectopy: premature ventricular contractions (unifocal) Conduction: [...] errors may have occurred. Kevin Soriano MD 10/16/242230 * Chiquita Rodriguez RN - 10/16/2024 8:39 PM EDT BG 240. * Chiquita Rodriguez RN - 10/16/2024 8:34 PM EDT Pt arrives from outside facility, hardware to right foot for osteomyelitis, has been hospitalized since 10/09. Around 0123-7374 he developed aphasia, head ct showed hemorrhage with mass effect. Pt alert to self. BG en route 202. Pt on eliquis at home, unsure of last dose of eliquis. Hx of Afib. 2-3LPM NC. * Jose Juan Lyn RN - 10/16/2024 8:34 PM EDT Bed: E040 Expected date: 10/16/24 Expected time: 8:30 PM Means of arrival: Private Ambulance Comments: documented in this encounterOS[facility] History and physical note* Elizabeth Agosto MD - 10/16/2024 10:09 PM EDT NEUROCRITICAL [...] admission) Hospital Medications: Infusions: niCARdipine 5 mg/hr (10/16/242201) Scheduled: meropenem 1 g Intravenous Q8HNS [START [...] ASSESSMENT AND PLAN Neuro: (10/16) Acute Left CASE ASSEMBLER CVA Left temporal ICH likely hemorrhagic transformation [...] for mid/distal left posterior cerebral artery occlusion (/). Artifact from venous contamination and vessel tortuosity [...] Temperooccipital ICH likely hemorrhagic transformation of left CASE ASSEMBLER stroke, ICH, mild mass effect - 10/17: [...] SpO2 >92%; wean FiO2 as tolerated - [id number], encourage pulmonary toileting - / CXR: result [...] 7.2 - DIET NPO WITHOUT meds - Oryl Swallow Screening Result: failed=NPO Bowel regimen: - [...] .Hypertension, Uncomplicated - Ischemic CVA, Location: Left CASE ASSEMBLER - hemorrhagic transformation ICU Checklist: [x] Assess pain [x] Both SAT & SBT [x] Choice of analgesia/ sedation See neuro [x] Delirium [x] Early mobility PT/OT consulted?: Yes [x] Family Engagement Primary Emergency Contact: Rogelio Zaragoza Last updated: [x] Get lines out Milagros: inserted 10/16, (indication: HTN) Beard: inserted , [...] done. Discussed with NCCU Attending, Dr. Thomas Agosto MD 10/16/24 10:10 PM Check the treatment team to find the assigned neurocritical care provider (resident, fellow, SKIN THERAPIST, orPA) or page/call the corresponding number below NCC1 (Beds [phone]): [place] # [phone], pager #[phone] NCC2 (Beds 7946-7859, 12 Jing, and overflow): [place] #: [phone], pager #[phone] documented in this encounterOS[facility]04[facility]04-23-2025 [facility]04-22-2025 History and physical note [facility] Medical Records Department [address] [place] [address] H&P Exam - Hospitalist 10/09/24 1552 MR#: [id number] Acct: [id number] Name: LANI ZARAGOZA Rep #:[id number] : 1955 69 From: Chula Antunez MD PCP: Dr. Bernabe Reese MD Status:AD M IN [place] [facility] [id number] HPI - General General Date of Admission: 10/09/24 Date of Service: 10/09/24 Chief Complaint: R diabetic foot ulcer HPI Narrative LANI ZARAGOZA, is a 69-year-old male with a history of diabetes, hypertension, sleep apnea, paroxysmal atrial fibrillation A-fib who presented [facility] ED 2024 from wound clinic for IV [...] is compliant with his BiPAP at home. [facility] Medical History Chronic cellulitis Streptococcal bacteremia Hyperglycemia [...] PO QHS BP 10/01/20 04/2 07/14 History tuovsfti-gl-ghdwj 300 mcg-K 60 1 tablet PO DAILY suppl cheryl 10/01/20 05/21/23 History mcg-lycop 600 mcg-lutein 300 mcg tablet insulin glargine U-300 conc 300 25 unit subcut QHS sudheer betes 09/27/22 05/20/23 History unit/mL (3 mL) subcutaneous [...] 82.8 H, Lymph % (Auto) 9.2 L, Lown[place] % (Auto) 6.5, Eos % (Auto) 0.7, [...] Right basilar atelectasis or pneumonia. Reading Location: [facility] Foot X-Ray 10/09/24 13:45 IMPRESSION: No obvious radiographic evidence of osteomyelitis. However, if clinical suspicion remains high, further evaluation with 3 phase bone scan or MRI is recommended. Reading Location: [facility] Assessment & Plan Assessment/Plan (1) Diabetic [...] Reese MD; Dr. Chula Antunez MD~ Signed [facility]04-22-2025 Discharge summary [facility] Medical Records Department [address] [place] [address] Emergency Department Summary 10/09/24 MR#: [id number] Acct: [id number] Name: LANI ZARAGOZA Rep #:[id number] : [...] A-fib on Eliquis [facility] dose this morning[facility] Medical History Chronic cellulitis Streptococcal bacteremia Hyperglycemia [...] PO QHS BP 10/01/20 04/2 07/14 History jqrufhyl-fh-zvxxj 300 mcg-K 60 1 tablet PO DAILY [...] meropenem and vancomycin. 1415: I spoke with bark grinder Dr. Garcia, discussed patient A-fib on Eliquis. [...] Hospitalist, podiatry This note was generated with DataLockeration software. It may contain incorrectwords, spelling, and [...] 82.8 H Lymph % (Auto) 9.2 L Lowndes % (Auto) 6.5 Eos % (Auto) 0.7 [...] (Auto) Neut % (Auto) Lymph % (Auto) [place] % (Auto) Eos % (Auto) Baso % [...] Right basilar atelectasis or pneumonia. Reading Location: [facility] Foot X-Ray 10/09/24 13:45 IMPRESSION: No obvious radiographic evidence of osteomyelitis. However, if clinical suspicion remains high, further evaluation with 3 phase bone scan or MRI is recommended. Reading Location: [facility] Discharge Plan Triage Chief Complaint: Wound [...] 5 MG tablet 5 mg PO QHS li-qln-uqftf-F0-aydglfo-pvaqnx 1 EACH tablet 1 tablet PO DAILY [...] MD [Primary Care Provider] - Print Language: Cook Islander Disposition Disposition: Acute Care Hospital [facility] What to do if you have Problems For any increased pain, shortness of breath, bleeding, nausea or vomiting, chestpain, or any unexpected problems, contact your Primary Care Provider. Call [facility] ([phone]) or report tothe closest Emergency Room. Call 911 if necessary. 10/09/24 1551 Cosigner Signature (if applicable): CC: Dr. Bernabe Reese MD ~ Signed [facility]04-22-2025 Radiology Diagnostic study note [facility] [facility] Imaging Services [address], [place] [address] Foot min 3 Views MR#: [id number] Acct: [id number] Name: LANI ZARAGOZA Rep #: [id number] : 1955 M 69 From: Dasha Gifford MD PCP: Dr. Bernabe Reese MD Status: RE G ER Study:Foot min 3 Views Date of Exam: Exam# [id number] Ordering Dr: Logan Gifford DO EXAM: XR [...] scan or MRI is recommended. Reading Location: [facility] CC: Dr. Bernabe Reese MD; Dr. Logan Gifford DO ~ Client Support Associate: Signed [facility]04-22-2025 Radiology Diagnostic study note [facility] Imaging Services [address] [place] [address] Chest 1 View (Portable) MR#: [id number] Acct: [id number] Name: LANI ZARAGOZA Rep #: [id number] : 1955 M 69 From: Dasha Gifford MD PCP: Dr. Bernabe Reese MD Status: RE G ER Study:Chest 1 View (Portable) Date of Exam: 10/09/24 Exam# [id number] Ordering Dr: Logan Gifford DO EXAM: XR Chest, 1 View CLINICAL INDICATION: PREOP TECHNIQUE: Frontal view of the chest. COMPARISON: No relevant prior studies available. FINDINGS: LUNGS AND PLEURAL SPACES: Right basilar atelectasis or pneumonia. No pneumothorax. HEART: Unremarkable. No cardiomegaly. MEDIASTINUM: Unremarkable. Normal mediastinal contour. BONES/JOINTS: Unremarkable. No acute fracture. RAD/Chest 1 View (Portable) IMPRESSION: Right basilar atelectasis or pneumonia. Reading Location: [facility] CC: Dr. Bernabe Reese MD; Dr. Logan Gifford DO ~ Client Support Associate: Signed [facility]04-22-2025 Discharge summary Author Logan Gifford [facility] Note Date/Time 2024 3:5 1pm [facility] Medical Records Department [address] [place] [address] Emergency Department Summary 10/09/24 MR#: [id number] Acct: [id number] Name: LANI ZARAGOZA Rep #:[id number] : [...] fib on Eliquis last dose this morning. [facility] Medical History Chronic cellulitis Streptococcal bacteremia [...] 5 mg PO QHS BP 10/01/20/07/14 History qauykroc-du-egbic 300 mcg-K 60 1 tablet PO DAILY suppl cheryl 10/01/20 05/21/23 H istory mcg-lycop 600 mcg-lutein [...] 500 mg tablet 1,000 mg PO TID 01/22/24 U nknown History (Tylenol Extra Strength) blood [...] meropenem and vancomycin. 1415: I spoke with bark grinder Dr. Garcia, discussed patient A-fib on Eliquis. [...] Hospitalist, podiatry This note was generated with D[employer]ios dictation software. It may contain incorrectwords, spelling, [...] 82.8 H Lymph % (Auto) 9.2 L Lowndes % (Auto) 6.5 Eos % (Auto) 0.7 [...] (Auto) Neut % (Auto) Lymph % (Auto) Lowndes % (Auto) Eos % (Auto) Baso % [...] Right basilar atelectasis or pneumonia. Reading Location: [facility] Foot X-Ray 10/09/24 13:45 IMPRESSION: No obvious radiographic evidence of osteomyelitis. However, if clinical suspicion remains high, further evaluation with 3 phase bone scan or MRI is recommended. Reading Location: [facility] Discharge Plan Triage Chief Complaint: Wound [...] 5 MG tablet 5 mg PO QHS qg-sen-lwplg-C6-aexbhih-enycdf 1 EACH tablet 1 tablet PO DAILY [...] MD [Primary Care Provider] - Print Language: Cook Islander Disposition Disposition: Acute Care Hospital [facility] What to do if you have Problems For any increased pain, shortness of breath, bleeding, nausea or vomiting, chestpain, or any unexpected problems, contact your Primary Care Provider. Call [facility] ([phone]) or report to the closest Emergency Room. Call 911 if necessary. 10/09/24 1551 <Electronically signed by Logan Downs> Cosigner Signature (if applicable): CC: Dr. Bernabe Reese MD ~ Signed [facility] Work Phone: 1(360) 753-481304-22-2025 Evaluation note* Diagnosis Onset Date Resolution Status [...] ulcer of right heel acute 2024 3:52pm [facility] Work Phone: 1(634) 941-959604-22-2025 Evaluation note* Diagnosis Onset Date Resolution Status [...] necrosis of muscle chronic November 13 10:30am [facility] Work Phone: 1(935) 146-376204-22-2025 Evaluation note* Diagnosis Onset Date Resolution Status [...] necrosis of muscle chronic December 04 10:00am [facility] Work Phone: 1(830) 661-585104-22-2025 Evaluation note* Diagnosis Onset Date Resolution Status [...] necrosis of muscle chronic December 11 10:00am [facility] Work Phone: 1(401) 700-667704-15-2025 Evaluation note* Diagnosis Onset Date Resolution Status Admit Date Iron deficiency anemia acute Ap ril 2024 10:15am Other specified peripheral vascular diseases acute October 02 10:15am Type 2 diabetes mellitus wit h diabetic polyneuropathy acute October 022024 10:15am 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 Bernabe Reese MD Status:AD M IN [facility] Subjective Subjective Patient seen and evaluated this [...] % (Auto) 67.7, Lymph % (Auto) 21.5, Lowndes% (Auto) 6.8, Eos % (Auto) 3.0, Baso [...] mellitus with diabetic polyneuropathy: QUALIFIERS: Diabetes mellitus 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 insulin use: unspecified custodial insulin use status Qualified Code(s): E11.42 - [...] worn at all times. Encouraged continuing with search engine optimization specialist for diabetic care upon discharge. Medicine team currently following for medical management, they are greatly appreciated. Infectious disease following for management of antibiotics, they are greatly appreciated. Infectious disease plan to discharge on oral clindamycin. Patient is set to be discharged home tonight on oral antibiotics. He will follow-up with primary care following discharge and is recommended to continue to follow with search engine optimization specialist for continued diabetic care and lower extremity care. He is agreeable to this. Jr. Peña Winters.P.M. [facility] [phone] 05/23/23 6700 <Electronically signed by Ralph Mancini DPM> Ralph Patricio Signature (if applicable): CC: ~ Signed [facility] Work Phone: 1(647) 972-819012-04-2023 Consult note Author Nakul Fowler [facility] May 23, 2023 1:53pm Note Date/Time May 23, 2023 1 :53pm [facility] Medical Records Department [address] [place] [address] Counseling Note - Pharmacy 05/23/23 1353 MR#: [id number] Acct: [id number] Name: LANI ZARAGOZA Rep #:[id number] : 1955 67 From: Nakul Fowler PCP: Dr. Bernabe Reese MD Status:AD M IN Y Location[place] [facility] [id number] Pharmacy [facility] Service has performed discharge medication reconciliation [...] tablet 5 mg PO QHS BP 10/01/20 qlaaupln-nc-utwvo 300 mcg-K 60 mcg-lycop 600 mcg-lutein 300 [...] 05/23/23 05/23/23 1353 <Electronically signed by Nakul worley> Date _ Nakul Fowler Cosigner Signature (if applicable): Date CC: ~ Signed [facility] Work Phone: 1(524) 475-406312-04-2023 Discharge summary Author Julee Spain [facility] May 23, 2023 1:30pm Note Date/Time May 23, 2023 1 :19pm [facility] Medical Records Department [address] [place] [address] Discharge Summary 05/23/23 1318 MR#: [id number] Acct: [id number] Name: LANI ZARAGOZA Rep #:[id number] : 1955 67 From: Julee Spain DO PCP: Dr. Bernabe Reese MD Status:AD M IN Location: [facility] VS688-2 Providers Date of Admission: 05/21/23 Date of [...] tablet 5 mg PO QHS BP 10/01/20 nriemels-rl-ikicc 300 mcg-K 60 mcg-lycop 600 mcg-lutein 300 [...] who presented to the emergency department at [facility] on 05/21/2023 with shortness of breath, generalized weakness, and worsening right lower extremity edema. Upon presentation he had no conversational dyspnea and did not appear to be in any acute distress. He was satting well on room air with no increased work of breathing at time of evaluation the emergency department. 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 He reported over the last few days [...] out frequently. We did have the dietitian inge and talk with him about low-salt diet [...] % (Auto) 67.7, Lymph % (Auto) 21.5, Lowndes% (Auto) 6.8, Eos % (Auto) 3.0, Baso [...] Care Provider: Bernabe Reese Consulting Providers: Haily Javier; Albert Root; Gregorio Mccarthy Instructions Additional Instructions [...] 5 MG tablet 5 mg PO QHS pl-eei-mflqh-C9-mibnjzr-fjelwj 1 EACH tablet 1 tablet PO DAILY [...] Self Care Charges/Coding Visit Charges Inpatient E&M: 48891 Disch Hosp >30min 05/23/23 1330 <Electronically signed by Julee Spain DO> Cosigner Signature (if applicable): CC: Dr. Bernabe Reese MD; Dr. Julee Spain DO~ Signed [facility] Work Phone: [phone]) 731-602712-04-2023 Consult note Author Bridger Martinez [facility] May 23, 2023 10:21am Note Date/Time May 23, 2023 1 0:21am [facility] Medical Records Department [address] [place] [address] Consultation - Infectious Dx 05/23/23 1018 MR#: [id number] Acct: [id number] Name: LANI ZARAGOZA Rep #:[id number] : 1955 67 From: Bridger Martinez MD PCP: Dr. Bernabe Reese MD Status:AD M IN Location: [facility] [id number] Assessment & Plan Assessment/Plan (1) Cellulitis of [...] with underlying lymphedema of the right leg. [facility] Medical History (Updated 05/21/23 @ 15:[address] Edward Luevano, DO) Alcohol use Ambulates with cane Anxiety Arthritis Atrial fibrillation Bilateral leg edema BiPAP (biphasic positive airway pressure) dependence [facility] Cardiology follow-up encounter Chronic anticoagulation Chronic cellulitis [...] QHS BP 10/01/20 [History Last Taken 05/20/23] ojhkxhkt-js-oqvqc 300 mcg-K 60 mcg-lycop 600 mcg-lutein 300 [...] % (Auto) 67.7, Lymph % (Auto) 21.5, Lowndes% (Auto) 6.8, Eos % (Auto) 3.0, Baso [...] CC: DPM Dr. Albert Root; Dr. Haily Javier DO; Dr. Bernabe Reese MD; Dr. Gregorio Mccarthy MD~ Signed [facility] Work Phone: 1([phone]) 589-769512-03-2023 Progress note Author Julee Spain [facility] May 22, 2023 12:24pm Note Date/Time May 22, 2023 8 :57am [facility] Medical Records Department [address] [place] [address] Progress Note - Hospitalist 05/22/23 0849 MR#: [id number] Acct: [id number] Name: LANI ZARAGOZA Rep #:[id number] : 1955 67 From: Julee Spain DO PCP: Dr. Bernabe Reese MD Status:AD M IN Location: [facility] [id number] Reason for Visit Reason for Visit: Shortness of breath/weakness/right lower extremity swelling Subjective Subjective Patient is a super morbidly obese white male who presented to the emergency department at [facility] on 05/21/2023 with shortness of breath, generalized weakness, and worsening right lower extremity edema. Upon presentation he had no conversational dyspnea and did not appear to be in any acute distress. He was satting well on room air with no increased work of breathing. 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 He reported over the last few days [...] (Auto) 74.4 H, Lymph % (Auto) 16.0 L,Lowndes % (Auto) 7.7, Eos % (Auto) 1.0, [...] Clarity Clear, Urine pH 5.0, Ur Specific [place] 1.020, Urine Protein 30 H, Urine Glucose [...] -Full code Charges/Coding Visit Charges Inpatient E&M: 37635 Subs Hosp L3 05/22/23 1224 <Electronically signed by Julee Spain DO> Cosigner Signature (if applicable): CC: ~ Signed [facility] Work Phone: 1(612) 284-397312-03-2023 Consult note Author Albert Root [facility] May 22, 2023 11:20am Note Date/Time May 22, 2023 1 0:41am [facility] Medical Records Department [address] [place] [address] Consultation 05/22/23 1041 MR#: [id number] Acct: [id number] Name: LANI ZARAGOZA Rep #:[id number] : 1955 67 From: Albert Root DPM PCP: Dr. Bernabe Reese MD Status:AD M IN Location: [facility] RG343-7 HPI Consult Data Date of Consult: 05/22/23 HPI Narrative HPI Narrative: LANI ZARAGOZA, is a 67 M who presents [facility] Medical History (Updated 05/21/23 @ 15:[address] Edward Luevano DO) Alcohol use Ambulates with cane Anxiety Arthritis Atrial fibrillation Bilateral leg edema BiPAP (biphasic positive airway pressure) dependence [facility] follow-up encounter Chronic anticoagulation Chronic cellulitis [...] QHS BP 10/01/20 [History Last Taken 05/20/23] yndjcvhm-mu-suvkw 300 mcg-K 60 mcg-lycop 600 mcg-lutein 300 [...] (Auto) 74.4 H, Lymph % (Auto) 16.0 L,Lowndes % (Auto) 7.7, Eos % (Auto) 1.0, [...] Clarity Clear, Urine pH 5.0, Ur Specific [place] 1.020, Urine Protein 30 H, Urine Glucose [...] tissue swelling. Degenerative changes. Electronically Signed: Dalton TomasDO at 19:41 EST , Ankle X-Ray 05/21/23 16:37 IMPRESSION: 1. Diffuse soft tissue swelling. 2. Extensive arthritic changes. No definite acute osseous abnormality. Electronically Signed: Dalton TomasDO at 19:40 EST , Tibia/Fibula X-Ray 05/21/23 16:37 IMPRESSION: Diffuse soft tissue swelling, dystrophic soft tissue calcifications, and degenerative changes. No acute osseous abnormalities. Electronically Signed: Dalton Tomas DO at 20:49 EST , 05/22/23 1041 <Electronically signed by Albert Wunning DPM> Cosigner Signature (if applicable): CC: DPM Dr. Albert Root; Dr. Haily Javier, DO; Dr. Bernabe Reese MD~ Signed ADDENDUM by DPM Dr. Albert Root on 05/22/23 at 1120 Addendum CC: [...] (if applicable): cc: ESAU Root; Dr. Haily Javier, DO; Dr. Bernabe Reese MD ~* Signed [facility] Work Phone: 1(131) 508-355412-03-2023 Consult note Author Bernabe Milan [facility] May 21, 2023 10:34pm Note Date/Time May 21, 2023 1 0:34pm [facility] Medical Records Department [address] [place] [address] Pharmacokinetic/Renal -Consult 05/21/232232 MR#: [id number] Acct: [id number] Name: LANI ZARAGOZA Rep #:[id number] : 1955 67 From: Bernabe Forbes od PCP: Dr. Bernabe Reese MD Status:AD M IN Y Location: [place] [address] Consult Antibiotic Management Pharmacy has been consulted [...] signed by Bernabe jain> Date _ Bernabe Patricio Signature (if applicable): Date CC: ~ Signed [facility] Work Phone: 1([phone]) 605-756412-02-2023 History and physical note Author Haily Javier [facility] May 21, 2023 5:51pm Note Date/Time May 21, 2023 4 :01pm [facility] Medical Records Department [address] [place] [address] H&P Exam - Hospitalist 05/21/23 1550 MR#: [id number] Acct: [id number] Name: LANI ZARAGOZA Rep #:[id number] : 1955 67 From: Haily ceron DO PCP: Dr. Bernabe Reese MD Status:AD M IN Location: [facility] NZ758-4 HPI - General General Date of Admission: 05/21/23 Date of Service: 05/21/23 Chief Complaint: Shortness of breath, weakness, RLE swelling HPI Narrative LANI ZARAGOZA, is a 67 M who presented to [facility] ED on 05/21/2023 from home with multiple concerns including shortness of breath, generalized weakness and worsening right lower extremity swelling. Patient seenat bedside in the ED. Laying comfortably in bed, conversing normally, no acute distress. Patient is satting well on room air, no increased work of breathing noted. Patient lives at home by himself. 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 States over the last few days he [...] vomiting. No other acute concerns this time. [facility] Medical History (Updated 05/21/23 @ 15:[address] Edward Luevano, ) Alcohol use Ambulates with cane Anxiety Arthritis Atrial fibrillation Bilateral leg edema BiPAP (biphasic positive airway pressure) dependence [facility] Cardiology follow-up encounter Chronic anticoagulation Chronic cellulitis [...] QHS BP 10/01/20 [History Last Taken 05/20/23] rubvxqji-nb-skmyx 300 mcg-K 60 mcg-lycop 600 mcg-lutein 300 [...] (Auto) 74.4 H, Lymph % (Auto) 16.0 L,Lowndes % (Auto) 7.7, Eos % (Auto) 1.0, [...] Clarity Clear, Urine pH 5.0, Ur Specific [place] 1.020, Urine Protein 30 H, Urine Glucose [...] is a 67-year-old male who presented to [facility] ED on 05/21/2023 from home with multiple [...] comfortably. ? Admit under inpatient status to [facility]. Will obtain ABG with patient on roomair to assess for OHS. Continue home BiPAP at night. Incentive spirometry ordered. 2. Generalized weakness, debility, super morbid obesity BMI 59 on admit. Patient lives at home by himself. Was previously hospitalizedin 11/2022 for a UTI, was discharged to SNF at the [facility] at that time. 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 Charges/Coding Visit Charges Inpatient E&M: 59098 Init Hosp L2 05/21/23 1751 <Electronically signed by Haily Javier DO> Cosigner Signature (if applicable): CC: Dr. Haily Javier DO; Dr. Bernabe Reese MD~ Signed [facility] Work Phone: 1(640) 318-429706-16-[address] Zimmerman [facility] December 03, 2022 9:51am Note Date/Time December 03, 2022 9:46 am [facility] Medical Records Department [address] [place] [address] Transfer to [facility] Care MR#: [id number] Acct: [id number] Name: LANI ZARAGOZA Rep #:[id number] : 1955 67 From: Hilda Zimmerman MD PCP: Dr. Bernabe Reese MD Status:AD M IN Certification of patient admission REQUIRED AT TIME OF ADMISSION. I CERTIFY THAT POST-HOSPITAL ECF SERVICES ARE REQUIRED TO BE GIVEN ON AN IN-PATIENT BASIS BECAUSE OF THE ABOVE NAMED PATIENT'S NEED FOR SENIOR LIVING CARE ON A CONTINUING BASIS FOR THE CONDITION(S) FOR WHICH HE/SHE WAS RECEIVING IN-PATIENT HOSPITAL SERVICES PRIOR TO HIS/HER TRANSFER TO THE ECF. 12/03/22 0951<Electronically signed by Hilda Zimmerman MD> [...] prior to d/c. Recommend PCP referral to [facility] for ongoing education and follow-up. [...] 5 MG tablet 5 mg PO QHS tbhvbogr-why-MN-lycopen-lutein 1 EACH tablet 1 tablet PO DAILY [...] in before D/C Order can be placed): [facility] 12/03/22 0951 <Electronically signed by Hilda Zimmerman MD> Cosigner Signature (if applicable): CC: Dr. Bernabe Reese MD; Dr. Gregorio Mccarthy MD ~ [facility] Work Phone: 1(147) 787-942906-15-2023 Progress note Author [facility] December 02, 2022 4:55pm Note Date/Time December 01, 2022 11:4 8am [facility] Medical Records Department [address] [place] [address] Progress Note 12/01/22 1143 MR#: [id number] Acct: [id number] Name: LANI ZARAGOZA Rep #:[id number] : 1955 67 From: Hilda Zimmerman MD PCP: Dr. Bernabe Reese MD Status:AD M IN Location: [place] [address] Subjective Subjective Patient seen and examined. He [...] 70.4 H, Lymph % (Auto) 18.9 L, Lowndes % (Auto) 8.8, Eos % (Auto) 1.2, [...] code * Charges/Coding Visit Charges Inpatient E&M: 89737 Subs Hosp L2 12/02/22 1655 <Electronically signed by Hilda Zimmerman MD> Hilda Zimmerman MD Cosigner Signature (if applicable): CC: ~ Signed [facility] Work Phone: 1(426) 130-374106-15-2023 Progress [facility] December 02, 2022 4:55pm Note Date/Time December 02, 2022 1:26 pm [facility] Medical Records Department [address] [place] [address] Progress Note 12/02/22 1313 MR#: [id number] Acct: [id number] Name: LANI ZARAGOZA Rep #:[id number] : 1955 67 From: Hilda Zimmerman MD PCP: Dr. Bernabe Reese MD Status:AD M IN Location: [place] [address] Subjective Subjective Patient seen and examined. He [...] 71.8 H, Lymph % (Auto) 17.4 L, Lowndes % (Auto) 8.0, Eos % (Auto) 1.5, [...] precert obtained. Charges/Coding Visit Charges Inpatient E&M: 90272 Subs Hosp L2 12/02/22 7819 <Electronically signed by Hilda Zimmerman MD> Hilda Zimmerman MD Cosigner Signature (if applicable): CC: ~ Signed [facility] Work Phone: 1(764) 734-866906-15-[address] Mccarthy [facility] December 02, 2022 11:29am Note Date/Time December 02, 2022 11:2 9am [facility] Medical Records Department [address] [place] [address] Progress Note - Infect Disease 12/02/22 1128 MR#: [id number] Acct: [id number] Name: LANI ZARAGOZA Rep #:[id number] : 1955 67 From: Gregorio worley MD PCP: Dr. Bernabe Reese MD Status:AD M IN Location: [place] [address] Physical Exam Narrative Feeling about the same [...] Cosigner Signature (if applicable): CC: ~ Signed [facility] Work Phone: 1(718) 661-713206-14-2023 Consult note Author Lawrence Rodriguez [facility] December 01, 2022 9:44pm Note Date/Time December 01, 2022 5:34 am [facility] Medical Records Department [address] [place] [address] Pharmacokinetic/Renal -Consult 12/01/22 0533 MR#: [id number] Acct: [id number] Name: LANI ZARAGOZA Rep #:[id number] : 1955 67 From: Saqib Dickey PCP: Dr. Bernabe Reese MD Status:AD M IN Location: [place] [address] Consult Pharmacy has been consulted to manage selected antiobiotic: Vancomycin Type of Consult: New start Prior Doses of Antibiotics Received/Current Regimen: Medications Vancomycin HCl 1,750 mg/ (Sodium Chloride) 535 mls @ 250 mls/hr IV Q12H JANNETTE Vancomycin HCl 2,000 mg/ (Sodium Chloride) 540 [...] [date and time ordered]: 12/02/22 @1700 12/01/22 0593 <Electronically signed by Saqib hilton > Date _ Saqib Dickey 12/01/22 6868 <Electronically signed by Lawrence barger MD> Cosigner Signature (if applicable): Date Lawrence Rodriguez MD CC: ~ Signed [facility] Work Phone: 1(813) 438-331106-14-[address] Mccarthy [facility] December 01, 2022 1:49pm Note Date/Time December 01, 2022 1:49 pm [facility] Medical Records Department [address] [place] [address] Progress Note - Infect Disease 12/01/22 1348 MR#: [id number] Acct: [id number] Name: LANI ZARAGOZA Rep #:[id number] : 1955 67 From: Gregorio worley MD PCP: Dr. Bernabe Reese MD Status:AD M IN Location: [place] [address] Physical Exam Narrative Feeling ok, some leg [...] Cosigner Signature (if applicable): CC: ~ Signed [facility] Work Phone: 1(776) 291-645406-14-2023 Progress note Author Lawrence Rodriguez [facility] December 01, 2022 7:45am Note Date/Time December 01, 2022 7:44 am [facility] Medical Records Department [address] [place] [address] Progress Note - Hospitalist 12/01/22 0743 MR#: [id number] Acct: [id number] Name: LANI ZARAGOZA Rep #:[id number] : 1955 67 From: Lawrence Rodriguez MD PCP: Dr. Bernabe Reese MD Status:AD M IN Location: [place] [address] Hospitalist Note Vancomycin was started overnight due to erythematous extensive swelling in the lower extremity on left side - concerning for cellulitis. Would appreciate ID comments regarding need for ongoing Vanc vs resuming with ceftriaxone alone. 12/01/22 0745 <Electronically signed by Lawrence Rodriguez MD> Cosigner Signature (if applicable): CC: ~ Signed [facility] Work Phone: 1(752) 206-453606-13-[address] Zimmerman [facility] November 30, 2022 4:38pm Note Date/Time November 29, 2022 3:19 pm [facility] Medical Records Department [address] [place] [address] Progress Note 11/29/22 1512 MR#: [id number] Acct: [id number] Name: LANI ZARAGOZA Rep #:[id number] : 1955 67 From: Hilda Zimmerman MD PCP: Dr. Bernabe Reese MD Status:AD M IN Location: [place] [address] Subjective Subjective Patient seen and examined. He [...] 82.7 H, Lymph % (Auto) 11.4 L, Lowndes % (Auto) 5.1, Eos % (Auto) 0.0, [...] confused. * Charges/Coding Visit Charges Inpatient E&M: 74006 Subs Hosp 11/30/22 8622 <Electronically signed by Hilda Zimmerman MD> Hilda Zimmerman MD Cosigner Signature (if applicable): CC: ~ Signed [facility] Work Phone: 1(968) 362-792106-13-[address] Zimmerman [facility] November 30, 2022 4:38pm Note Date/Time November 30, 2022 10:3 5am [facility] Medical Records Department [address] [place] [address] Progress Note 11/30/22 1033 MR#: [id number] Acct: [id number] Name: LANI ZARAGOZA Rep #:[id number] : 1955 67 From: Hilda Zimmerman MD PCP: Dr. Bernabe Reese MD Status:AD M IN Location: [place] [address] Subjective Subjective Patient seen and examined. He [...] % (Auto) 68.4, Lymph % (Auto) 19.2, Lowndes % (Auto) 9.9, Eos % (Auto) 1.6, [...] code * Charges/Coding Visit Charges Inpatient E&M: 91121 Subs Hosp L2 11/30/22 1638 <Electronically signed by Hilda Zimmerman MD> Hilda Zimmerman MD Cosigner Signature (if applicable): CC: ~ Signed [facility] Work Phone: 1(791) 673-986006-13-[address] Mccarthy [facility] November 30, 2022 10:52am Note Date/Time November 30, 2022 10:5 2am [facility] Medical Records Department [address] [place] [id number] Consultation - Infectious Dx 11/30/22 1047 MR#: [id number] Acct: [id number] Name: LANI ZARAGOZA Rep #:[id number] : 1955 67 From: Gregorio worley MD PCP: Dr. Bernabe Reese MD Status:AD M IN Location: [place] [address] Assessment & Plan Assessment/Plan (1) Acute UTI: [...] performed and neg except as noted above. [facility] Medical History Alcohol use Ambulates with cane Anxiety Arthritis Atrial fibrillation Bilateral leg edema BiPAP (biphasic positive airway pressure) dependence [facility] Cardiology follow-up encounter Depression Diabetes Dietary restriction [...] QHS BP 10/01/20 [History Last Taken 12/03/20] mfmkbuqy-inp-trycx acid 300 mcg-lycopene 600 mcg-lutein 300 mcg [...] % (Auto) 68.4, Lymph % (Auto) 19.2, Lowndes % (Auto) 9.9, Eos % (Auto) 1.6, [...] By: Stanley SALTER RDCS, Melissa and Student 11/30/22 1052 <Electronically signed by Gregorio Mccarthy MD> Cosigner Signature (if applicable): CC: Dr. Bernabe Reese MD; Dr. Gregorio Mccarthy MD~ Signed [facility] Work Phone: 1(691) 933-189606-12-2023 History and physical note Author Dr. Zimmerman [facility] November 29, 2022 4:54pm Note Date/Time November 28, 2022 12:1 3pm [facility] Medical Records Department [address] [place] [address] H&P Exam - Hospitalist 11/28/22 1205 MR#: [id number] Acct: [id number] Name: LANI ZARAGOZA Rep #:[id number] : 1955 67 From: Hilda Zimmerman MD PCP: Dr. Bernabe Reese MD Status:AD M IN Location: [place] [id number] HPI - General General Date of Admission: [...] in the ED were temp of 99.8F, MT of 120, BP of 138/88, RR of [...] the ED, and started on cardizem drip. [facility] Medical History Alcohol use Ambulates with cane Anxiety Arthritis Atrial fibrillation Bilateral leg edema BiPAP (biphasic positive airway pressure) dependence [facility] Cardiology follow-up encounter Depression Diabetes Dietary restriction [...] PO QHS 10/01/20 [History Last Taken 12/03/20] uvdcjpkx-cmr-avwat acid 300 mcg-lycopene 600 mcg-lutein 300 mcg [...] 88.3 H, Lymph % (Auto) 5.7 L, Lowndes % (Auto) 4.6, Eos % (Auto) 0.0, [...] GFR (MDRD) Non-Af 86, BUN/Creatinine Ratio 12.9, Ekdystk616 H, Calcium 8.7, Total Bilirubin 1.10 H, [...] Clarity Cloudy, Urine pH 5.0, Ur Specific [place] 1.020, Urine Protein 100 H, Urine Glucose [...] confused. * Charges/Coding Visit Charges Inpatient E&M: 79083 Init Hosp L3 11/29/22 1654 <Electronically signed by Hilda Zimmerman MD> Cosigner Signature (if applicable): CC: Dr. Bernabe Reese MD; Dr. Hilda Zimmerman MD~ Signed [facility] Work Phone: [phone]) [phone] Bailey [facility] November 28, 2022 5:30pm Note Date/Time November 28, 2022 10:0 2am [facility] Medical Records Department [address] [place] [address] Emergency Department Summary 11/28/22 MR#: [id number] Acct: [id number] Name: LANI ZARAGOZA Rep #:[id number] : 1955 67 From: Gui Bailey MD PCP: Dr. Bernabe Reese MD Status:AD M IN Location: [place] [id number] HPI HPI - Fall History of [...] edema BiPAP (biphasic positive airway pressure) dependence Blackout Cardiology follow-up encounter Depression Diabetes Dietary restriction [...] PO QHS 10/01/20 [History Last Taken 12/03/20] xwpjezqz-udd-wxbdy acid 300 mcg-lycopene 600 mcg-lutein 300 mcg [...] 88.3 H Lymph % (Auto) 5.7 L Lowndes % (Auto) 4.6 Eos % (Auto) 0.0 [...] Color Urine Clarity Urine pH Ur Specific [place] Urine Protein Urine Glucose (UA) Urine Ketones [...] (Auto) Neut % (Auto) Lymph % (Auto) Lowndes % (Auto) Eos % (Auto) Baso % [...] Color Urine Clarity Urine pH Ur Specific [place] Urine Protein Urine Glucose (UA) Urine Ketones [...] (Auto) Neut % (Auto) Lymph % (Auto) Lowndes % (Auto) Eos % (Auto) Baso % [...] Clarity Cloudy Urine pH 5.0 Ur Specific [place] 1.020 Urine Protein 100 H Urine Glucose [...] 136. Frequent PVCs. No acute signs of MT. Critical Care Time Critical Care Time: Yes Critical care time (excluding procedures): 30-74 minutes, Including time spent:,Discussing w/Patient &/or Family/Silk Weaver, Discussing w/Consultants, ArrangingAdmission or Transfer and Performing Direct Patient Care at Bedside Discharge Plan Dx/Rx/DC Orders Clinical Impression: Fall, Acute confusion, Chronic anticoagulation, Acute UTI, Leukocytosis, Atrialfibrillation with RVR, Hyperglycemia due to diabetes mellitus Disposition Disposition: [facility] What to do if you have Problems For any increased pain, shortness of breath, bleeding, nausea or vomiting, chestpain, or any unexpected problems, contact your Primary Care Provider. Call [facility] ([phone]) or report to the closest Emergency Room. Call 911 if necessary. 11/28/22 1730 <Electronically signed by Gui Bailey MD> Cosigner Signature (if applicable): CC: Dr. Bernabe Reese MD ~ Signed [facility] Work Phone: evaluation noteNo assessment information available [facility] Work Phone: evaluation note* Diagnosis Onset Date Resolution Status Iron deficiency anemia acute Atrial fibrillation acute Essential (primary) hypertension chronic Hyperlipidemia [facility] Work Phone: Evaluation note* Diagnosis Onset Date Resolution Status Atrial fibrillation acute Chest pain acute Essential (primary) hypertension chronic Hyperlipidemia [facility] Work Phone: evaluation note* Diagnosis Onset Date Resolution Status Atrial fibrillation acute Chest pain acute Essential (primary) hypertension chronic Hyperlipidemia chronic Acute confusion acute Acute UTI acute Atrial fibrillation with RVR acute Chronic anticoagulation acut e Fall acute Hyperglycemia due to diabetes mellitus acute Leukocytosis acute Streptococcal bacteremia acu te [facility] Work Phone: Evaluation note* Diagnosis Onset Date Resolution Status Atrial fibrillation acute Chest pain acute Essential (primary) hypertension chronic Hyperlipidemia chronic Cellulitis of right leg acut e Dysuria acute Hypoxemia acute Type 2 diabetes mellitus with diabetic polyneuropathy acute Weakness acute Bilateral leg edema chronic Morbid obesity chronic Venous insufficiency (chronic) (peripheral) [facility] Work Phone: Evaluation note* Diagnosis Onset Date Resolution Status Cellulitis of right leg acut e Type 2 diabetes mellitus with diabetic polyneuropathy acute Weakness acute Bilateral leg edema chronic Morbid obesity chronic Venous insufficiency (chronic) (peripheral) chronic Dysuria resolved Hypoxemia resolved Bilateral leg edema chronic Dyspnea on exertion chronic Morbid obesity chronic Pickwickian syndrome chronic [facility] Work Phone: Evaluation note* Diagnosis Ischemic cerebrovascular [...] as uncontrolled [facility] in [facility] Chula Antunez [facility] Note Date/Time 2024 4:0 3pm [facility] Medical Records Department [address] [place] [address] H&P Exam - Hospitalist 10/09/24 1552 MR#: [id number] Acct: [id number] Name: LANI ZARAGOZA Rep #:[id number] : 1955 69 From: Chula Antunez MD PCP: Dr. Bernabe Reese MD Status:AD IN Location: [facility] [id number] HPI - General General Date of Admission: 10/09/24 Date of Service: 10/09/24 Chief Complaint: R diabetic foot ulcer HPI Narrative LANI ZARAGOZA, is a 69-year-old male with a history of diabetes, hypertension, sleep apnea, paroxysmal atrial fibrillation A-fib who presented [facility] ED 2024 from wound clinic for IV [...] is compliant with his BiPAP at home. [facility] Medical History Chronic cellulitis Streptococcal bacteremia Hyperglycemia [...] tablet 5 mg PO QHS BP 10/01/20 04/07/14 History dgjnoqie-hu-ddgsv 300 mcg-K 60 1 tablet PO DAILY suppl cheryl 10/01/20 05/21/23 History mcg-lycop 600 mcg-lutein 300 [...] 82.8 H, Lymph % (Auto) 9.2 L, Lowndes % (Auto) 6.5, Eos % (Auto) 0.7, [...] Right basilar atelectasis or pneumonia. Reading Location: [facility] Foot X-Ray 10/09/24 13:45 IMPRESSION: No obvious radiographic evidence of osteomyelitis. However, if clinical suspicion remains high, further evaluation with 3 phase bone scan or MRI is recommended. Reading Location: [facility] Assessment & Plan Assessment/Plan (1) Diabetic [...] Reese MD; Dr. Chula Antunez MD~ Signed [facility] Work Phone: Reason for referral (narrative)No reason for referral information availableWMarietta Osteopathic [facility] Work Phone: [facility] for visit Narrative* Auth/Cert Specialty Diagnoses / Procedures Referred By Contac t Referred To Contact Diagnoses Intracranial hemorrhage Ischemic cerebrovascular accident (CVA) Osteomyelitis (R Foot/ Ext Fixator) Cerebrovascular Accident (Type A Hemorrhagic Stroke) Dillan Guzman MD [address] [place] [address] Phone: tel: fax: [facility] [address] [place] [address] Referral ID Status Reason Start Date Expiration Date Visits Re quested Visits Authorized [id number] 1 1 [facility] Summary Purpose Family History No Family History Records Found Relationship Condition Age at Onset Recorded Date/T dianna mother Cardiac disease Unknown Diabetes mellitus Unknown father Cardiac disease Unknown Malignant neoplasm Unknown Advance Directives No Advanced Directives Records Found Advance Directive Response Recorded Date/ Time Living Will No December 03, 2020 5:10pm Power of Poultry Feed Supervisor No December 03 5:10pm Advance Directive Response Recorded Date/ Time Living Will Yes April 28 10:03am Power of Poultry Feed Supervisor Yes April 28, 2022 10:03am Advance Directive Response Recorded Date/ Time Living Will Yes April 28 11:03am Power of Poultry Feed Supervisor Yes April 28, 2022 11:03am Advance Directive Response Recorded Date/ Time Living Will No November 28, 2022 9:50am Power of Poultry Feed Supervisor No November 28 9:50am Advance Directive Response Recorded Date/ Time Name of Medical Power of Poultry Feed Supervisor Norma Rosas ( sister) May 21, 2023 5:53pm Living Will No May 21 5:53pm Power of Poultry Feed Supervisor Yes May 21, 2023 5:53pm Advance Directive Response Recorded Date/ Time Name of Medical Power of Poultry Feed Supervisor Norma Rosas ( sister) May 21, 2023 6:53pm Living Will No May 21 6:53pm Power of Poultry Feed Supervisor Yes May 21, 2023 6:53pm Advance Directive Response Recorded Date/ Time Do you have a Healthcare Power of Poultry Feed Supervisor? 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 Yes 2024 4:40pm Name of Medical Power of Poultry Feed Supervisor Norma Beckham-- sister 2024 4:40pm Chief Complaint [...] section and content) DATE CREATED AUTHOR 12/06/2017 [facility] Rashmi Chan DATE CREATED AUTHOR AUTHOR'S ORGANIZ ATION 12/08/2017 [facility] DATE CREATED AUTHOR AUTHOR'S ORGANIZ ATION 02/12/2018 Bethanie keita DATE CREATED AUTHOR AUTHOR'S ORGANIZ ATION 10/25/2024 [facility] DATE CREATED AUTHOR AUTHOR'S ORGANIZ ATION 11/17/2024 [facility] DATE CREATED AUTHOR AUTHOR'S ORGANIZ ATION 12/27/2024 [facility] Goals (unrecognized section and content) Goals may [...] Pr ovider, Attending Provider, Referring Provider Active Gum Rolling Machine Tender Relationship Specialty Start Date End Date Dillan Beach MD PCP - General Family Medicine 11/11/16 Team Status: Inactive Member Role Status Dates Dr. Bernabe Reese MD Primary Care Provider, Referr ing Provider Active Bernabe Angel NP, SKIN THERAPIST-C Attending Provider Active Team Status: Inactive Member [...] Primary Care Provider Active Dr. Josr Muñoz , Attending Provider, Emergency Pr ovider Active Team [...] Luevano DO Emergency Provider Active Dr. Haily Javier , DO Admit Provider, Other Pro vider Active Dr. Julee Spain , DO Attending Provider, Other Provide r Active Dr. Albert Root DPM Other Provider Active Team Status: Active Member Role Status Dates Dr. Bernabe Reese MD Primary Care Provider Active Dr. Edward Luevano DO Emergency Provider Active Dr. Haily Javier , DO Admit Provider, Other Pro vider Active Dr. Julee Spain , DO Attending Provider, Other Provide r Active Dr. Albert Root DPM Other Provider Active Dr. Gregorio Mccarthy MD Other Provider Active Team Status: Inactive Member Role Status Dates Dr. Bernabe Reese MD Primary Care Provider Active Dr. Edward Luevano DO Emergency Provider Active Dr. Haily Javier , DO Admit Provider, Other Pro vider Active Dr. Julee Spain , DO Attending Provider Active Dr. Albert Root [...] MD Other Provider Active Star t: 2024 Gum Rolling Machine Tender Relationship Specialty Start Date End Date Bernabe Reese MD [facility] Magalie [place] [address] [place] [address] PCP - General Family Medicine 10/29/24 Team Status: Inactive Member Role Status Dates Dr. Bernabe Reese MD Primary Care Provider Active Start: 2024 End: October 17, 2024 Dr. Ramon Garcia , DPM Attending Provider Active Start: 2024 End: October 17, 2024 Dr. Albert Root , ESAU Referring Provider Active Start: 2024 End: October [...] 2024 End: October 16, 2024 Dr. Haily Javier DO Attending Provider Active Start: 2024 End: October 16, 2024 Dr. Ozzy Cabrera DO Other Provider Active S tart: 2024 End: October 16, 2024 Daniel Dominique MD Other Provider Active Start: 2024 End: October 16, 2024 Dr. Harpreet Herring MD Other Provider Active Start: 2024 End: October 16, 2024 Elizabeth Agosto MD Other Provider Active Start : 2024 [...] Start: October 15, 2024 Dr. Logan Gifford DO Emergency Provider Active Start : October 15, 2024 Dr. Chula Antunez MD Admit Provider Active Star t: October 15, 2024 Dr. Chula Antunez MD Other Provider Active Star t: October 15, 2024 Dr. Haily Javier , DO Attending Provider Active Start: October 15, 2024 Dr. Haily Javier , DO Other Provider Active Start: October [...] Star t: October 16, 2024 Dr. Haily Javier , DO Attending Provider Active Start: October 16, 2024 Dr. Haily Javier , DO Other Provider Active Start: October [...] Status: Inactive Member Role Status Dates Dr. Benrabe Reese MD Primary Care Provider Active Start: [...] End: October 16, 2024 Dr. Logan Gifford , Emergency Provider Active Start : 2024 End: October 16, 2024 Dr. Chula Antunez MD Admit Provider Active Star t: 2024 End: October 16, 2024 Dr. Chula Antunez MD Other Provider Active Star t: 2024 End: October 16, 2024 Dr. Haily Javier , Attending Provider Active Start: 2024 End: October 16, 2024 Dr. Ozzy Cabrera , Other Provider Active S tart: 2024 End: October 16, 2024 Daniel Dominique MD Other Provider Active Start: Ap 2024 End: October 16, 2024 Dr. Harpreet Herring MD Other Provider Active Start: 2024 End: October 16, 2024 Elizabeth Agosto MD Other Provider Active Start : 2024 [...] Start: October 13, 2024 Dr. Logan Gifford , DO Emergency Provider Active Start : October 13, 2024 Dr. Chula Antunez MD Admit Provider Active Star t: October 13, 2024 Dr. Chula Antunez MD Other Provider Active Star t: October 13, 2024 Dr. Ozzy Cabrera , DO Attending Provider Active Start: October 13, 2024 Dr. Ozzy Cabrera , DO Other [...] Start: October 15, 2024 Dr. Logan Gifford DO Emergency Provider Active Start : October 15, 2024 Dr. Chula Antunez MD Admit Provider Active Star t: October 15, 2024 Dr. Chula Antunez MD Other Provider Active Star t: October 15, 2024 Dr. Haily Javier , Attending Provider Active Start: October 15, 2024 Dr. Haily Javier , DO Other Provider Active Start: October [...] October 16, 2024 Dr. Logan Gifford , Emergency Provider Active Start : October 16, 2024 Dr. Chula Antunez MD Admit Provider Active Star t: October 16, 2024 Dr. Chula Antunez MD Other Provider Active Star t: October 16, 2024 Dr. Haily Javier , Attending Provider Active Start: October 16, 2024 Dr. Haily Javier , DO Other Provider Active Start: October 16, 2024 Dr. Ozzy Cabrera , Other Provider Active S tart: October 16, [...] or prosecute any alcohol or drug abuse patient.[facility] Scheduled Active and Recently Administ ered Medications (unrecognized section and content) Medication Order 10/28/2024 10/29/2024 10/30/2024 amLODIPine (NORVASC) tablet 10 mg 10 mg, Oral, DAILY, First dose on 10/22/24 at 0900, Until Discontinued 816 (Given - Provider: Aixa Arvizu RN) 0854 (Given - Provider: Danielle Ricardo RN) 08 (Given - Provider: Felicitas Reed, ZEN) aspirin chewable tablet 81 mg 81 mg, Oral, DAILY, First dose on 10/24/24 at 1045, Until Discontinued 816 (Given - Provider: Aixa Arvizu RN) 08 (Given - Provider: Danielle Ricardo RN) 08 (Given - Provider: Felicitas Reed, ZEN) Atorvastatin (LIPITOR) tablet 40 mg 40 mg, Oral, DAILY AT BEDTIME, First dose (after last modification) on Paula 10/18/24 at 2100, Until Discontinued 2125 (Given - Provider: Vishal Avila RN) 2118 (Given - Provider: Luis Yang, RN) carveDILOL (COREG) tablet 3.125 mg 3.125 mg, Oral, EVERY 12 HOURS, First dose (after last modification) on 10/27/24 at 1015, Until Discontinued 816 (Given - Provider: Aixa Arvizu RN)2125 (Given - Provider: Vishal Avila RN) 853 (Given - Provider: Danielle Ricardo RN)2118 (Given - Provider: Luis Yang, RN) 08 (Given - Provider: Felicitas Reed, ZEN) Enoxaparin Sodium (LOVENOX) injection 30 mg 30 [...] Avila RN) 1250 (Given - Provider: Danielle Ricardo, ZEN)2335 (Given - Provider: Luis Yang RN) 1130 (Canceled Entry - Provider: System Discharge - Comment: Automatically canceled at discontinue of medication order) Fluconazole (DIFLUCAN) tablet 400 mg 400 mg, Oral, DAILY, First dose on Tue10/22/24 at 1500, Until Discontinued, Swallow tablet whole; do not crush, split or chew. Contact pharmacy if alternate route or dose is needed. 0817 (Given - Provider: Aixa Arvizu RN) 0854 (Given - Provider: Danielel Ricardo, RN) 0800 (Given - Provider: Felicitas Reed, RN) furOSEmide (LASIX) tablet 20 mg 20 mg, Oral, DAILY, First dose on Tue10/22/24 at 1045, Until Discontinued 08 (Given - Provider: Aixa Arvizu RN) 0854 (Given - Provider: Danielel Ricardo, ZEN) 0800 (Given - Provider: Felicitas Reed, ZEN) Gabapentin (NEURONTIN) capsule 800 mg 800 mg, Oral, 3 TIMES DAILY, First dose (after last modification) on Tue10/25/24 at 1400, Until Discontinued 08 (Given - Provider: Aixa Arvizu RN)1316 (Given - Provider: Aixa Arvizu RN)2126 (Given - Provider: Vishal Avila RN) 0855 (Given - Provider: Danielle Ricardo, ZEN)1438 (Given - Provider: Danielle Ricardo, RN)2119 (Given - Provider: Luis Yang RN) 0800 (Given - Provider: Felicitas Reed, ZEN) insulin glargine-yfgn (SEMGLEE) injection 28 Units(Linked Group 1) 28 Units, Subcutaneous, EVERY 24 HOURS, First dose (after last modification) on Tue10/19/24 at 1200, Until Discontinued, Do not mix in syringe with other insulins. 1319 (Given - Provider: Aixa Arvizu RN) 1249 (Given - Provider: Danielle Ricardo, ZEN) 1200 (Canceled Entry - Provider: System Discharge [...] Avila RN) 0855 (Given - Provider: Danielle Ricardo, ZEN)1250 (Given - Provider: Danielle Ricardo, ZEN)1703 (Not Given - Provider: Danielle Ricardo RN - Reason: Medication not available - Comment: pen ran out)1708 (Not Given - Provider: Danielle Ricardo RN - Reason: Medication not available - Comment: Pen ran out)1732 (Given - Provider: Danielle Ricardo RN - Comment: pen ran out; insulin given when pen became avaliable)2120 (Given - Provider: Luis Yang RN) 0759 (Given - Provider: Felicitas Reed, ZEN)1200 (Canceled Entry - Provider: System Discharge - Comment: Automatically canceled at discontinue of medication order) Losartan (COZAAR) tablet 50 mg 50 mg, Oral, DAILY, First dose (after last modification) on Tue10/24/24 at 0900, Until Discontinued 0817 (Given - Provider: Aixa Arvizu RN) 0854 (Given - Provider: Danielle Ricardo RN) 0800 (Given - Provider: Felicitas Reed, ZEN) Meropenem (MERREM) 1 g in sodium chloride [...] Luis Yang RN)0840 (Stopped - Provider: Felicitas Reed RN) Multivitamin w/ minerals (THERAPEUTIC-M) tablet 1 tablet 1 tablet, Oral, DAILY, First dose on Tue10/26/24 at 0900, Until Discontinued 0817 (Given - Provider: Aixa Arvizu RN) 0855 (Given - Provider: Danielle Ricardo, ZEN) 0800 (Given - Provider: Felicitas Reed RN) Polyethylene glycol (MIRALAX) packet 17 g 17 g, Oral, EVERY 12 HOURS, First dose (after last modification) on Tue10/19/24 at 2100, Until Discontinued 816 (Not Given - Provider: Aixa Arvizu RN - Reason: Patient/family refused)2126 (Not Given - Provider: Vishal Avila RN - Reason: Patient/family refused) 0900 (Not Given - Provider: Danielle Ricardo, ZEN - Reason: Patient with symptoms)2117 (Not Given - Provider: Luis Yang RN - Reason: Patient/family refused) 0800 (Not Given - Provider: Felicitas Reed RN - Reason: Patient/family refused) ProSource No Carb 1 Package 1 Package, Oral, 3 TIMES DAILY, First dose on Tue10/25/24 at 1545, Until Discontinued, Add contents of packet to 2-4oz of a beverage, or to soups, purees, and hot or cold foods. 0817 (Given - Provider: Aixa Arvizu RN)1316 (Given - Provider: Aixa Arvizu RN)2137 (Given - Provider: Vishal Avila RN) 0854 (Given - Provider: Danielle Ricardo RN)1438 (Given - Provider: Danielle Ricardo, RN)2117 (Given - Provider: Luis Yang RN) 08 (Given - Provider: Felicitas Reed RN) Senna (SENOKOT) tablet 8.6 mg 8.6 [...] Luis Yang RN - Reason: Patient/family refused) 0800 (Not Given - Provider: Felicitas Reed RN [...] Risk 0255 ($$New Bag$$ - Provider: Vishal Avila RN)0452 (Stopped - Provider: Vishal Avila RN)1638 ($$New Bag$$ - Provider: Aixa Arvizu RN) 0225 ($$New Bag$$ - Provider: Vishal Avila RN)1458 ($$New Bag$$ - Provider: Danielle Ricardo RN) 0211 ($$New Bag$$ - Provider: Luis Yang RN)0415 (Stopped - Provider: Luis Yang RN) PRN Medication Order 10/28/2024 10/29/202410/3010/30/2024 bisacodyl (DULCOLAX) suppository 10 mg 10 mg, Rectal, NEEDED, Starting on Tue10/19/24 at 1049, Until Tue10/30/24 at 1241, Constipation 2nd Line Dextrose 50% injection 7.5-25 g(Linked Group 2) 7.5-25 g, Intravenous, ADMINISTER DIRECTED, Starting on Tue10/19/24 at 0824, Until Tue10/30/24 at 124, Blood glucose <80 mg/dL, For patients who are not alert, are NPO, or are on IV insulin infusion administer as directed per Hypoglycemia in Non- Adults Clinical Practice Guideline. For Blood Glucose: 60-79 mg/dL administer 7.5 gm (15ml); 45-59 mg/dL administer 12.5 gm (25ml); less than 45mg/dL administer 25gm (50ml). ++ If additional dextrose 50% needed, contact pharmacy or obtain from crash cart ++ glucose (GLUTOSE) 40 % oral [...] on Tue10/19/24 at 0824, Until Tue10/30/24 at 1240, Other, As needed for snacks, Insulin to [...] on Tue10/17/24 at 1150, Until Tue10/30/24 at 124, Cough, Breathing Treatment Labetalol (NORMODYNE) injection 10 mg(Linked Group 4) 10 mg, Intravenous, EVERY 1 HOUR NEEDED, Starting on Tue10/16/24 at 2243, Until Tue10/30/24 at 124, See admininstration instructions, Use as initial dose [...] medication. 1325 ($$New Bag$$ - Provider: Aixa Arvizu, ZEN)1725 (Rate/Dose Verify - Provider: Aixa Arvizu RN) Linked Groups Order Group 1: insulin glargine-yfgn (SEMGLEE) injection 28 UnitsJump to med 28 Units, Subcutaneous, EVERY 24 HOURS, First dose (after last modification) on Tue10/19/24 at 1200, Until Discontinued, Do not mix in syringe with other insulins. And NOTIFY PHYSICIAN, OTHER (CANCELED) Routine, CONTINUOUS, Starting on Tue10/19/24 at 0825, Until Specified, Who to Notify: Knowledge Architect, Call Knowledge Architect if a.m. Glucose is less than 80 [...] glucose is greater than 200md/dl, then notify Knowledge Architect. And BLOOD GLUCOSE (POC DEVICE) (CANCELED) Routine, [...] 50% needed, contact pharmacy or obtain from [employer] cart ++ And glucose (GLUTOSE) 40 % [...] at 0825, Until Specified, Who to Notify: Knowledge Architect, For all Blood Glucose LESS THAN 80 mg/dl, notify Knowledge Architect after treatment per Hypoglycemia in Non- Adults [...] BE BASED ON THE PRIMARY CLINICAL RECORDS. [employer] provides no warranty or guarantee of the accuracy or completeness of information in this document.
[2025-01-01 08:48] LABS: Hematocrit 33.1 % (40-54); Hemoglobin 11.0 g/dL (13.0-16.5); Mean Corp Hgb Conc 33.2 g/dL (32-36); Mean Corpuscular Volume 83.2 fL (80-94); Mean Platelet Vol. 10.8 fl (6.2-12.0); Platelet Count 165 K/mm3 (150-450); RBC Distribution Width CV 15.9 % (11.6-14.6); RBC Distribution Width SD 48.0 fl (35.1-43.9); Red Blood Count 3.98 M/mm3 (4.6-6.2); White Blood Count 6.9 K/mm3 (4.4-11.0)
[2025-01-01 09:08] LABS: Anion Gap 12 (5-15); BUN 26 mg/dL (4-19); BUN/Creat Ratio 31.3 RATIO (10-20); CRP 21.70 mg/L (0.0-3.0); Calcium,Total 9.4 mg/dL (7.6-11.0); Carbon Dioxide 28.3 mmol/L (21.0-32.0); Chloride 101 mmol/L (98-108); Glucose 114 mg/dL (70-99); Potassium 3.7 mmol/L (3.3-5.1)
== END ==
LOC: OLS.SW 05:00
PROVIDERS: PCP Family Medicine; Visit Provider Internal Medicine
DX: I10 Essential (primary) hypertension (principal); E11.42 Type 2 diabetes mellitus with diabetic polyneuropathy; I69.198 Other sequelae of nontraumatic intracerebral hemorrhage; M86.171 Other acute osteomyelitis, right ankle and foot
CPT/HCPCS: 36415; 80048; 85027; 86140

== ENCOUNTER → 2025-01-08 | Outpatient (REF) | payer MEDICARE, OTHER, SELFPAY ==
--- OUTSIDE RECORDS SUMMARY | 2025-01-08 03:49 | XMS RPT_ITS | CCD ---
Author Organization [facility] Care Team Providers Care Perforator Name Role Phone [place] Unavailable Unavailable ANN, LAPMAN Unavailable Unavailable ANN, LAPMAN Unavailable Unavailable JING DAWKINS Unavailable Unavailable ANN, LAPMAN Unavailable Unavailable ANN, LAPMAN Unavailable Unavailable ANN, LAPMAN Unavailable Unavailable ANN, LAPMAN Unavailable Unavailable ANN, LAPMAN Unavailable Unavailable ENRRIQUE, VESELIN Unavailable Unavailable Dr. Bernabe Reese Primary Care Provider Dr. Bernabe Reese Referring Provider 1([facility])[phone] Dr. Gregorio Graham Attending Provider [phone] Abdulaziz GLOVE PRINTER, GLOVE PRINTER-C Amelie Attending Provider [place] MD Primary Care Provider Dr. Bernabe Reese Primary Care Provider 1([facility] )[phone] Dr. Bernabe Reese Referring Provider 1([facility])[phone] [facility] GLOVE PRINTER, GLOVE PRINTER-C Bernabe Madison Attending Provider 1([facility])[phone] Dr. Jerrod Mast Attending Provider Dr. Gui Bailey Emergency Provider Dr. Hilda Zimmerman Admit Provider Dr. Hilda Zimmerman Attending Provider Dr. Hilda Zimmerman Other Provider Dr. Gregorio Mccarthy Other Provider Dr. Lawrence Rodriguez Attending Provider [phone] Dr. Bernabe Reese Primary Care Provider 1([facility] )[phone] Dr. Bernabe Reese Referring Provider 1([facility])[phone] Dr. Sylvester Thomas Attending Provider Dr. Bernabe Reese Primary Care Provider Dr. Bernabe Reese Referring Provider Dr. Sylvester Thomas Attending Provider Dr. Edward Luevano Emergency Provider Dr. Haily Santos Admit Provider [phone] Haily Santos Other Provider [phone] Julee Spain Attending Provider Dr. Julee Spain Other Provider Dr. Albert Root Other Provider Dr. Gregorio Mccarthy Other Provider Dr. Bernabe Reese Primary Care Provider Dr. Edward Luevano Emergency Provider 1([facility])[phone] Haily Santos Admit Provider [phone] Haily Santos Other Provider [phone] [...] Unavailable Nevaeh STERLING, Dr. Mullins Other Provider [phone] Elizabeth Bettencourt MD Other Provider Unavailable [...] Giuliana STERLING, Dr. Aishwarya Brown Other Provider [phone] Neeraj STERLING, Dr. Elizalde Other Provider Alexandra [...] STERLING, Dr. Mullins Other Provider [phone] Triny STERLING, Elizabeth Other Provider Unavailable Luke MARLEY, Dr. Yao Other Provider Teresa STERLING, Dr. Jiménez Other Provider Daniel [...] Provider Dr. Haily Santos DO Other Provider [phone] Naomi STERLING, Dr. Pereira Attending Provider Klever Salgado MD, Dr. Pereira Referring Provider Klever Salgado MD, Dr. Pereira Attending Provider Klever Salgado MD, Dr. Pereira Referring Provider Klever Cavzaos MD, Dr. Canelo Pizarro Attending Provider Bernabe Reese Primary Care Unavailable Naomi, Kelli Attending Unavailable Naomi, Kelli Referring Unavailable Schinner, Bernabe E Primary Care Unavailable Ramon Garcia Attending Unavailable Ramon Garcia Referring Unavailable SchinBernabe subramanian E Primary Care Unavailable Gudaya Kelli LUNA Attending Unavailable Gudla CHERYL, Kelli Referring Unavailable SchinBernabe subramanian E Attending Unavailable Schinmarilynn, Bernabe E Referring Unavailable Schinmarilynn, Bernabe E Primary Care Unavailable Schinmarilynn, Bernabe E Primary Care Unavailable Ramon Garcia Attending Unavailable Mary Ann, Bernabe Mejias Primary Care Unavailable Chula Antunez Admitting Unavailable Chula Antunez Consulting Unavailable Haily Santos Attending Unavailable Ozzy Cabrera Consulting Unavailable Daniel Dominique Consulting Unavailable Harpreet Herring Consulting Unavailable Elizabeth Bettencourt Consulting Unavailable Najma Butler Consulting Unavailable Jessy [...] Mccarthy Consulting Unavailable Albert Root Consulting Unavailable Bernabe Reese Attending Unavailable Bernabe Reese E Referring Unavailable Schbubba, Bernabe E Primary Care Unavailable Bernabe Reese Attending Unavailable Bernabe Reese E Referring Unavailable Schbubba, Bernabe E Primary Care Unavailable Schbubba, Bernabe E Primary Care Unavailable Naomi LUNA, Kelli Attending Unavailable Bernabe Reese E Primary Care Unavailable Paulettea CHERYL, Kelli Attending Unavailable Mary Ann, Bernabe E Primary Care Unavailable Gudaya CHERYL, Kelli Attending Unavailable Mary Ann, Bernabe E Primary Care Unavailable Gudla CHERYL, Kelli Attending Unavailable Mary Ann, Bernabe E Primary Care Unavailable Gudaya CHERYL, Kelli Attending Unavailable Mary Ann, Bernabe E Primary Care Unavailable Ramon Garcia Attending Unavailable Albert Root Referring Unavailable Schinner, Bernabe E Primary Care Unavailable Kelli Morris Attending Unavailable Schinner, Bernabe E Primary Care Unavailable León Cerda Attending Unavailable Albert Root Referring Unavailable Schinner, Bernabe E Primary Care Unavailable Canelo Cavazos Attending Unavailable Albert Root Referring Unavailable Schinner, Bernabe E Primary Care Unavailable Ramon Garcia Attending Unavailable Albert Root Referring Unavailable Schinner, Bernabe E Primary Care Unavailable Jessica Baez Attending Unavail able Schinner, Bernabe E Primary Care Unavailable Bernabe Angel NP Attending Unavailable Schinner, Bernabe E Primary Care Unavailable Francisco Abarca Referring Unavailable Chetan Cowan Attending Unavailable Schinner, Bernabe E Primary Care Unavailable Ozzy Cabrera Attending Unavailable Chula Antunez Admitting Unavailable Albert Root Consulting Unavailable Chula Antunez Consulting Unavailable Ozzy Cabrera Consulting Unavailable Chula Antunez Attending Unavailable Mary Ann, Bernabe E Primary Care Unavailable Kelli Morris Attending Unavailable Haily Santos Attending Unavailable Gregorio Mccarthy Consulting Unavailable Haily Santos Consulting Unavailable Mary Ann, Bernabe E Primary Care Unavailable Ramon Garcia Attending Unavailable Ramon Garcia Referring Unavailable Allergies Allergy Classification Reported Allergen(s) Allergy Type Date of Onset Reaction(s) Facility (19 sources) ampicillin; Translations: [AMPICILLIN] Drug Allergy 7 Hives [facility] (20 sources) Penicillins; Translations: [PENICILLINS] Propensity to adverse reactions to drug (disorder) 7 Unknown [facility] (16 sources) peanut allergenic extract Drug Allergy 1 Other, NEEDS FOLLOW-UP [facility] Comment on above: PEANUT BUTTER (3 sources) Peanut butter Allergy to substance 1 Other [facility] Work Phone: (1 source) peanut allergenic extract Drug Allergy 5 [facility] Medications Current Medications Medication Drug Class(es) Dates Sig (Normalized) Sig (Original) acetaminophen 325 mg oral tablet (17 sources) Start: 10-16-2024 Start: 07-11-2023 End: 10-16-2024 Start: 12-03-2020 take 500 mg by mouth every six hours Acetaminophen Active 500 MG PO EVERY 6 HOURS December 03, 2020 12:00am take 2 tablets by mo [facility] every eight hours as needed acetaminophen (TYLENOL [...] on above: 1 tablet twice daily . Txjuiota-Apf-Gl-Lycopen -Lutein (7 sources) Start: 10-01-2020 take 1 tablet by mouth once daily Sofecrek-Vfv-Uc -Lycopen-Lutein Active 1 TABLET PO DAILY October 01, 2020 7:30pm Start: 10-01-2020 take 1 tablet by maria g th once daily Zggkbiuo-Obq-Bs-Lycopen-Lutein Active 1 TABLET PO DAILY September 30, 2020 11:00pm Start: 10-01-2020 take 1 tablet by maria g th once daily Dwsgslsf-Vny-Kp-Lycopen-Lutein Active 1 TABLET PO DAILY October 01, 2020 12:00am Ir-Nrb-Dzotz-U1-Jmmkxtl-Wxdo in (3 sources) Start: 10-01-2020 take 1 tablet by mouth once daily Pb-Rdz-Vgtlz-N4-Pembbcu-Twvtfr Active 1 TABLET PO DAILY September 30, 2020 11:00pm Start: 10-01-2020 take 1 tablet by maria g th once daily Vw-Mvc-Emwfz-T9-Opxosof-Pdtdlm Active 1 TABLET PO DAILY October 01, 2020 12:00am Tj-Imf-Zcfez-P0-Pwjwkdx-Jksn in 1 EACH tablet (5 sources) Start: 10-01-2020 take 1 tablet by mouth once daily Xa-Gix-Wxacf-K1-Tudihdf-Zfkzds 1 EACH tablet Active 1 {tbl} PO [...] Osmotic Laxative Start: 10-18-2024 End: 10-30-2024 sennosides, intermediate 8.6 mg oral tablet (3 sources) Start: [...] Channel Rosie Start: 10-16-2024 End: 10-17-2024 nystatin [id number] unt/ml / triamcinolone acetonide 1 mg/ml topical [...] at 0825, Until Specified, Who to Notify: Elevator Repairer Helper, Call Elevator Repairer Helper if a.m. Glucose is less than 80 [...] glucose is greater than 200md/dl, then notify Elevator Repairer Helper. [Order 3 End] [Order 4 Start] Name: [...] 50% needed, contact pharmacy or obtain from [employer] cart ++ [Order 6 End] [Order 7 [...] at 0825, Until Specified, Who to Notify: Elevator Repairer Helper, For all Blood Glucose LESS THAN 80 mg/dl, notify Elevator Repairer Helper after treatment per Hypoglycemia in Non- Adults [...] (20 sources) Hyperlipidemia; Translations: [Hyperlipidemia, unspecified] Onset: 01-03-2025 Chronic E Codes: Fall (11 sources) Fall; Translations: [Unspecified fall, initial encounter] 11-28-2022 Episodic Essential hypertension (20 sources) Essential hypertension; Translations: [Essential (primary) hypertension] Onset: 01-03-2025 Chronic Fluid and electrolyte disorders (4 sources) [...] Translations: [Unilateral primary osteoarthritis, left knee] Onset: 01-03-2025 11-28-2022 Chronic Other aftercare (20 sources) Long-term current use of anticoagulant; Translations: [termite helper (current) use of anticoagulants] 11-28-2022 Episodic Other aftercare (2 sources) termite helper (current) use of anticoagulants; Translations: [Long-term (current) use of anticoagulants] Onset: 01-03-2025 12-03-2022 Episodic Other aftercare (1 source) Taking high risk medication; Translations: [Other termite control service representative (current) drug therapy] 10-22-2024 Episodic Other aftercare (3 sources) alf (current) use of insulin; Translations: [alf (current) use of insulin] Onset: 10-16-2024 Episodic Other aftercare (2 sources) Other group home (current) drug therapy; Translations: [Other group home (current) drug therapy] Onset: 10-16-2024 Episodic Other [...] absence of other toe(s), unspecified side] Onset: 01-03-2025 Episodic Other circulatory disease (10 sources) Peripheral [...] (peripheral); Translations: [Venous (peripheral) insufficiency, unspecified] Onset: 01-03-2025 05-23-2023 Episodic Other injuries and conditions due [...] source) Dyspnea, unspecified; Translations: [Dyspnea, unspecified] Onset: 01-03-2025 Episodic Other nervous system disorders (1 source) [...] to excess calories; Translations: [Morbid obesity] Onset: 01-03-2025 05-23-2023 Chronic Other nutritional; endocrine; and metabolic disorders (2 sources) Morbid (severe) obesity with alveolar hypoventilation; Translations: [Obesity hypoventilation syndrome] Onset: 01-03-2025 07-11-2023 Chronic Other nutritional; endocrine; and metabolic disorders (2 sources) Body mass index (BMI) 50.0-59.9, adult; Translations: [Body mass index (BMI) 50.0-59.9, adult] Onset: 10-16-2024 Chronic Other skin disorders (16 sources) Dystrophia unguium; Translations: [Nail dystrophy] 12-07-2020 Episodic Residual codes; unclassified (1 source) Dependence on other enabling machines and devices; Translations: [Dependence on other enabling machines and devices] Onset: 01-03-2025 Chronic Residual codes; unclassified (1 source) Obstructive sleep apnea (adult) (pediatric); Translations: [Obstructive sleep apnea (adult) (pediatric)] Onset: 01-03-2025 Chronic Residual codes; unclassified (16 sources) Bilateral lower limb edema; Translations: [Localized edema] 11-06-2020 Episodic Residual codes; unclassified (10 sources) Acute confusion; Translations: [Disorientation, unspecified] 11-28-2022 Episodic Residual codes; unclassified (1 source) Disorientation, unspecified; Translations: [Delirium due to conditions classified elsewhere] 12-03-2022 Episodic Residual codes; unclassified (1 source) Personal history of other specified conditions; Translations: [Personal history of other specified conditions] Onset: 01-03-2025 Episodic Screening and history of mental health and substance abuse codes (1 source) Personal history of nicotine dependence; Translations: [Personal history of nicotine dependence] Onset: 01-03-2025 Episodic Skin and subcutaneous tissue infections (20 sources) Cellulitis and abscess of lower limb; Translations: [Cellulitis of unspecified part of limb] Onset: 01-03-2025 12-03-2020 Episodic Thyroid disorders (1 source) Nontoxic [...] Test Name Value Interpretation Reference Range Facility Culture, Anaerobic Any Sourc devonte 01-05-2025 CUAN No anaerobic bacteri a isolated. [facility] Comment on above: Performed By: #### M 100.4001, M100.2999, ####[facility] [address] [place], [place], [id number] Wound Cultureon 01-04-2025 WC Normal [facility] Comment on above: Performed By: #### M 100.4001, M100.3000, ####[facility] [address] [place], [place], [id number] Gram Stainon 01-03-2025 GS Positive [facility] Comment on above: Performed By: #### M 100.4001, M100.3000, M100.2000 ####[facility] [address] [place], [address] Basic Metabolic Profile (BMP )on 01-01-2025 BUN/CRE 31.3 RATIO High 10-20 [facility] Comment on above: Order Comment: 208.1 Performed By: #### L 100.0500, L501.6710, L500.2500 ####[facility] [address] [place], [address] Calcium [Mass/Vol] 9.4 mg/dL Normal 7.6-11.0 [facility] Comment on above: Order Comment: 208.1 Performed By: #### L 100.0500, L501.6710, L500.2500 ####[facility] [address] [place], [address] Chloride [Moles/Vol] 101 mmol/L Normal 98-[address] [facility] Comment on above: Order Comment: 208.1 Performed By: #### L 100.0500, L501.6710, L500.2500 ####[facility] [address] [place], [address] CO2 [Moles/Vol] 28.3 mmol/L Normal 21.0-32.0 [facility] Comment on above: Order Comment: 208.1 Performed By: #### L 100.0500, L501.6710, L500.2500 ####[facility] [address] [place], [address] Creatinine [Mass/Vol] 0.83 mg/dL Normal 0.70-1.20 [facility] Comment on above: Order Comment: 208.1 Performed By: #### L 100.0500, L501.6710, L500.2500 ####[facility] [address] [place], [address] GAP 12 Normal 5-15 [facility] Comment on above: Order Comment: 208.1 Performed By: #### L 100.0500, L501.6710, L500.2500 ####[facility] [address] [place], [address] GFR/1.73 sq M.predicted among non-blacks MDRD (S/P/Bld) [Vol rate/Area] 94 mL/min/{1.73_m2} Normal >60 [facility] Comment on above: Order Comment: 208.1 Result Comment: mL/m in/1.73m2 CKD-EPI Creatinine Equation (2020) Performed By: #### L 100.0500, L501.6710, L500.2500 ####[facility] [address] [place], [address] Glucose [Mass/Vol] 114 mg/dL High 70-99 [facility] Comment on above: Order Comment: 208.1 Performed By: #### L 100.0500, L501.6710, L500.2500 ####[facility] [address] [place], [address] Potassium [Moles/Vol] 3.7 mmol/L Normal 3.3-5.1 [facility] Comment on above: Order Comment: 208.1 Performed By: #### L 100.0500, L501.6710, L500.2500 ####[facility] [address] [place], [address] Sodium [Moles/Vol] 142 mmol/L Normal 133-145 [facility] Comment on above: Order Comment: 208.1 Performed By: #### L 100.0500, L501.6710, L500.2500 ####[facility] [address] [place], [address] Urea nitrogen [Mass/Vol] 26 mg/dL High 4-19 [facility] Comment on above: Order Comment: 208.1 Performed By: #### L 100.0500, L501.6710, L500.2500 ####[facility] [address] [place], [address] CBC-Complete Blood Cnt No Di ffon 01-01-2025 Erythrocyte distribution width (RBC) [Ratio] 15.9 % High 11.6-14.6 [facility] Comment on above: Order Comment: 208.1 Performed By: #### L 100.0500, L501.6710, L500.2500 ####[facility] [address] [place], [address] Hematocrit (Bld) [Volume fraction] 33.1 % Low 40-54 [facility] Comment on above: Order Comment: 208.1 Performed By: #### L 100.0500, L501.6710, L500.2500 ####[facility] [address] [place], [address] Hemoglobin (Bld) [Mass/Vol] 11.0 g/dL Low 13.0-16.5 [facility] Comment on above: Order Comment: 208.1 Performed By: #### L 100.0500, L501.6710, L500.2500 ####[facility] [address] [place], [address] MCH (RBC) [Entitic mass] 27.6 pg Normal 27.0-32.0 [facility] Comment on above: Order Comment: 208.1 Performed By: #### L 100.0500, L501.6710, L500.2500 ####[facility] [address] [place], [address] MCHC (RBC) [Mass/Vol] 33.2 g/dL Normal 32-36 [facility] Comment on above: Order Comment: 208.1 Performed By: #### L 100.0500, L501.6710, L500.2500 ####[facility] [address] [place], [address] MCV (RBC) [Entitic vol] 83.2 fL Normal 80-94 [facility] Comment on above: Order Comment: 208.1 Performed By: #### L 100.0500, L501.6710, L500.2500 ####[facility] [address] [place], [address] Platelet mean volume (Bld) [Entitic vol] 10.8 fL Normal 6.2-12.0 [facility] Comment on above: Order Comment: 208.1 Performed By: #### L 100.0500, L501.6710, L500.2500 ####[facility] [address] [place], [address] Platelets (Bld) [#/Vol] 165 10*3/uL Normal 150-450 [facility] Comment on above: Order Comment: 208.1 Performed By: #### L 100.0500, L501.6710, L500.2500 ####[facility] [address] [place], [address] RBC (Bld) [#/Vol] 3.98 10*6/uL Low 4.6-6.2 [facility] Comment on above: Order Comment: 208.1 Performed By: #### L 100.0500, L501.6710, L500.2500 ####[facility] [address] [place], [address] RDW SD 48.0 fl High 35.1-43.9 [facility] Comment on above: Order Comment: 208.1 Performed By: #### L 100.0500, L501.6710, L500.2500 ####[facility] [address] [place], [address] WBC (Bld) [#/Vol] 6.9 10*3/uL Normal 4.4-11.0 [facility] Comment on above: Order Comment: 208.1 Performed By: #### L 100.0500, L501.6710, L500.2500 ####[facility] [address] [place], [address] CRPon 01-01-2025 C-REACTIVE PROT 21.70 mg/L High 0.0-3.0 [facility] Comment on above: Order Comment: 208.1 Performed By: #### L 100.0500, L501.6710, L500.2500 ####[facility] [address] [place], [address] Wound Ctr History AND Physic arely 12-29-2024 Wound Ctr History & Physical Normal [facility] Wound Ctr History AND Physic arely 12-21-2024 Wound Ctr History & Physical Normal [facility] Basic Metabolic Profile (BMP )on 12-18-2024 BUN/CRE 30.2 RATIO High 10-20 [facility] Comment on above: Order Comment: 208.1 Performed By: #### L 501.6710, L500.2500, L100.0100 ####[facility] [address] [place], [address] Calcium [Mass/Vol] 9.3 mg/dL Normal 7.6-11.0 [facility] Comment on above: Order Comment: 208.1 Performed By: #### L 501.6710, L500.2500, L100.0100 ####[facility] [address] [place], [address] Chloride [Moles/Vol] 101 mmol/L Normal 98-[address] [facility] Comment on above: Order Comment: 208.1 Performed By: #### L 501.6710, L500.2500, L100.0100 ####[facility] [address] [place], [address] CO2 [Moles/Vol] 29.0 mmol/L Normal 21.0-32.0 [facility] Comment on above: Order Comment: 208.1 Performed By: #### L 501.6710, L500.2500, L100.0100 ####[facility] [address] [place], [address] Creatinine [Mass/Vol] 0.91 mg/dL Normal 0.70-1.20 [facility] Comment on above: Order Comment: . Performed By: #### L 501.6710, L500.2500, L100.0100 ####[facility] [address] [place], [address] GAP 12 Normal 5-15 [facility] Comment on above: Order Comment: . Performed By: #### L 501.6710, L500.2500, L100.0100 ####[facility] [address] [place], [address] GFR/1.73 sq M.predicted among non-blacks MDRD (S/P/Bld) [Vol rate/Area] 91 mL/min/{1.73_m2} Normal >60 [facility] Comment on above: Order Comment: . Result Comment: mL/m in/1.73m2 CKD-EPI Creatinine Equation (2020) Performed By: #### L 501.6710, L500.2500, L100.0100 ####[facility] [address] [place], [address] Glucose [Mass/Vol] 132 mg/dL High 70-99 [facility] Comment on above: Order Comment: . Performed By: #### L 501.6710, L500.2500, L100.0100 ####[facility] [address] [place], [address] Potassium [Moles/Vol] 3.9 mmol/L Normal 3.3-5.1 [facility] Comment on above: Order Comment: . Performed By: #### L 501.6710, L500.2500, L100.0100 ####[facility] [address] [place], [address] Sodium [Moles/Vol] 141 mmol/L Normal 133-145 [facility] Comment on above: Order Comment: 208.1 Performed By: #### L 501.6710, L500.2500, L100.0100 ####[facility] [address] [place], [address] Urea nitrogen [Mass/Vol] 28 mg/dL High 4-19 [facility] Comment on above: Order Comment: 208.1 Performed By: #### L 501.6710, L500.2500, L100.0100 ####[facility] [address] [place], [address] CBC W/Diff, Automatedon 07-0 1-2024 Absolute Lymph 2.30 X10 3/uL Normal 0.83-4.51 [facility] Comment on above: Order Comment: 208.1 Performed By: #### L 501.6710, L500.2500, L100.0100 ####[facility] [address] [place], [address] Absolute Neut 4.3 X10 3/uL Normal 2.0-7.7 [facility] Comment on above: Order Comment: 208.1 Performed By: #### L 501.6710, L500.2500, L100.0100 ####[facility] [address] [place], [address] Basophils/100 WBC (Bld) 0.7 % Normal 0-1 [facility] Comment on above: Order Comment: 208.1 Performed By: #### L 501.6710, L500.2500, L100.0100 ####[facility] [address] [place], [address] Eosinophils/100 WBC (Bld) 3.1 % Normal 0-5 [facility] Comment on above: Order Comment: 208.1 Performed By: #### L 501.6710, L500.2500, L100.0100 ####[facility] [address] [place], [address] Erythrocyte distribution width (RBC) [Ratio] 15.8 % High 11.6-14.6 [facility] Comment on above: Order Comment: . Performed By: #### L 501.6710, L500.2500, L100.0100 ####[facility] [address] [place], [address] Hematocrit (Bld) [Volume fraction] 33.7 % Low 40-54 [facility] Comment on above: Order Comment: . Performed By: #### L 501.6710, L500.2500, L100.0100 ####[facility] [address] [place], [address] Hemoglobin (Bld) [Mass/Vol] 10.9 g/dL Low 13.0-16.5 [facility] Comment on above: Order Comment: . Performed By: #### L 501.6710, L500.2500, L100.0100 ####[facility] [address] [place], [address] IG% 0.100 Normal 0.0-0.9 [facility] Comment on above: Order Comment: . Result Comment: IG% - Immature Granulocytes (promyelocytes, myelocytes andmetamyelocytes) > 1% indicates that a LEFT SHIFT is Present. Performed By: #### L 501.6710, L500.2500, L100.0100 ####[facility] [address] [place], [address] Lymphocytes/100 WBC (Bld) 30.8 % Normal 19-41 [facility] Comment on above: Order Comment: . Performed By: #### L 501.6710, L500.2500, L100.0100 ####[facility] [address] [place], [address] MCH (RBC) [Entitic mass] 26.8 pg Low 27.0-32.0 [facility] Comment on above: Order Comment: 208.1 Performed By: #### L 501.6710, L500.2500, L100.0100 ####[facility] [address] [place], [address] MCHC (RBC) [Mass/Vol] 32.3 g/dL Normal 32-36 [facility] Comment on above: Order Comment: 208.1 Performed By: #### L 501.6710, L500.2500, L100.0100 ####[facility] [address] [place], [address] MCV (RBC) [Entitic vol] 83.0 fL Normal 80-94 [facility] Comment on above: Order Comment: 208.1 Performed By: #### L 501.6710, L500.2500, L100.0100 ####[facility] [address] [place], [address] Monocytes/100 WBC (Bld) 7.6 % Normal 0-10 [facility] Comment on above: Order Comment: 208.1 Performed By: #### L 501.6710, L500.2500, L100.0100 ####[facility] [address] [place], [address] Neutrophils/100 WBC (Bld) 57.7 % Normal 47-70 [facility] Comment on above: Order Comment: 208.1 Performed By: #### L 501.6710, L500.2500, L100.0100 ####[facility] [address] [place], [address] Nucleated RBC (Bld) [#/Vol] 0 10*3/uL Normal 0-5 [facility] Comment on above: Order Comment: 208.1 Performed By: #### L 501.6710, L500.2500, L100.0100 ####[facility] [address] [place], [address] Platelet mean volume (Bld) [Entitic vol] 11.0 fL Normal 6.2-12.0 [facility] Comment on above: Order Comment: 208.1 Performed By: #### L 501.6710, L500.2500, L100.0100 ####[facility] [address] [place], [address] Platelets (Bld) [#/Vol] 189 10*3/uL Normal 150-450 [facility] Comment on above: Order Comment: 208.1 Performed By: #### L 501.6710, L500.2500, L100.0100 ####[facility] [address] [place], [address] RBC (Bld) [#/Vol] 4.06 10*6/uL Low 4.6-6.2 [facility] Comment on above: Order Comment: 208.1 Performed By: #### L 501.6710, L500.2500, L100.0100 ####[facility] [address] [place], [address] RDW SD 46.4 fl High 35.1-43.9 [facility] Comment on above: Order Comment: 208.1 Performed By: #### L 501.6710, L500.2500, L100.0100 ####[facility] [address] [place], [address] WBC (Bld) [#/Vol] 7.5 10*3/uL Normal 4.4-11.0 [facility] Comment on above: Order Comment: 208.1 Performed By: #### L 501.6710, L500.2500, L100.0100 ####[facility] [address] [place], [address] CRPon 12-18-2024 C-REACTIVE PROT 13.50 mg/L High 0.0-3.0 [facility] Comment on above: Order Comment: 208.1 Performed By: #### L 501.6710, L500.2500, L100.0100 ####[facility] [address] [place], [address] Absolute lymphocyte countOrd ered By: Kelli Salgado on 12-10-2024 Lymphocytes Auto (Unsp spec) [#/Vol] 2.60 10*3/uL 0.83-4.51 [facility] Anion gap in Serum or Plasma Ordered By: Kelli Salgado on 12-10-2024 Anion gap [Moles/Vol] 12 mmol/L 5-15 [facility] Automated lymphocyte count a s percentage of total leukocytesOrdered By: Kelli Salgado on 12-10-2024 Lymphocytes/100 WBC Auto (Unsp spec) 32.9 % - [facility] BUN/creatinine ratioOrdered By: Kelli Salgado on 12-10-2024 Urea nitrogen/Creatinine [Mass ratio] 33.2 mg/mg High 10-20 [facility] Basic Metabolic Profile (BMP )on 12-10-2024 BUN/CRE 33.2 RATIO High 10-20 [facility] Comment on above: Order Comment: 208 Performed By: #### L 501.6710, L500.2500, L100.0100 ####[facility] [address] [place], [address] Calcium [Mass/Vol] 9.3 mg/dL Normal 7.6-11.0 [facility] Comment on above: Order Comment: 208 Performed By: #### L 501.6710, L500.2500, L100.0100 ####[facility] [address] [place], [address] Chloride [Moles/Vol] 99 mmol/L Normal 98-[address] [facility] Comment on above: Order Comment: 208 Performed By: #### L 501.6710, L500.2500, L100.0100 ####[facility] [address] [place], [address] CO2 [Moles/Vol] 28.2 mmol/L Normal 21.0-32.0 [facility] Comment on above: Order Comment: 208 Performed By: #### L 501.6710, L500.2500, L100.0100 ####[facility] [address] [place], [address] Creatinine [Mass/Vol] 0.89 mg/dL Normal 0.70-1.20 [facility] Comment on above: Order Comment: 208 Performed By: #### L 501.6710, L500.2500, L100.0100 ####[facility] [address] [place], [address] GAP 12 Normal 5-15 [facility] Comment on above: Order Comment: 208 Performed By: #### L 501.6710, L500.2500, L100.0100 ####[facility] [address] [place], [address] GFR/1.73 sq M.predicted among non-blacks MDRD (S/P/Bld) [Vol rate/Area] 92 mL/min/{1.73_m2} Normal >60 [facility] Comment on above: Order Comment: 208 Result Comment: mL/m in/1.73m2 CKD-EPI Creatinine Equation (2020) Performed By: #### L 501.6710, L500.2500, L100.0100 ####[facility] [address] [place], [address] Glucose [Mass/Vol] 147 mg/dL High 70-99 [facility] Comment on above: Order Comment: 208 Performed By: #### L 501.6710, L500.2500, L100.0100 ####[facility] [address] [place], [address] Potassium [Moles/Vol] 4.2 mmol/L Normal 3.3-5.1 [facility] Comment on above: Order Comment: 208 Performed By: #### L 501.6710, L500.2500, L100.0100 ####[facility] [address] [place], [address] Sodium [Moles/Vol] 140 mmol/L Normal 133-145 [facility] Comment on above: Order Comment: 208 Performed By: #### L 501.6710, L500.2500, L100.0100 ####[facility] [address] [place], [address] Urea nitrogen [Mass/Vol] 29 mg/dL High 4-19 [facility] Comment on above: Order Comment: 208 Performed By: #### L 501.6710, L500.2500, L100.0100 ####[facility] [address] [place], [address] Basophil percentageOrdered B y: Kelli Salgado on 12-10-2024 Basophils/100 WBC (Bld) 0.5 % 0-1 [facility] CBC W/Diff, Automatedon 11-19 Absolute Lymph 2.60 X10 3/uL Normal 0.83-4.51 [facility] Comment on above: Order Comment: 208 Performed By: #### L 501.6710, L500.2500, L100.0100 ####[facility] [address] [place], [address] Absolute Neut 4.6 X10 3/uL Normal 2.0-7.7 [facility] Comment on above: Order Comment: 208 Performed By: #### L 501.6710, L500.2500, L100.0100 ####[facility] [address] [place], [address] Basophils/100 WBC (Bld) 0.5 % Normal 0-1 [facility] Comment on above: Order Comment: 208 Performed By: #### L 501.6710, L500.2500, L100.0100 ####[facility] [address] [place], [address] Eosinophils/100 WBC (Bld) 2.3 % Normal 0-5 [facility] Comment on above: Order Comment: 208 Performed By: #### L 501.6710, L500.2500, L100.0100 ####[facility] [address] [place], [address] Erythrocyte distribution width (RBC) [Ratio] 15.3 % High 11.6-14.6 [facility] Comment on above: Order Comment: 208 Performed By: #### L 501.6710, L500.2500, L100.0100 ####[facility] [address] [place], [address] Hematocrit (Bld) [Volume fraction] 33.8 % Low 40-54 [facility] Comment on above: Order Comment: 208 Performed By: #### L 501.6710, L500.2500, L100.0100 ####[facility] [address] [place], [address] Hemoglobin (Bld) [Mass/Vol] 11.2 g/dL Low 13.0-16.5 [facility] Comment on above: Order Comment: 208 Performed By: #### L 501.6710, L500.2500, L100.0100 ####[facility] [address] [place], [address] IG% 0.300 Normal 0.0-0.9 [facility] Comment on above: Order Comment: 208 Result Comment: IG% - Immature Granulocytes (promyelocytes, myelocytes andmetamyelocytes) > 1% indicates that a LEFT SHIFT is Present. Performed By: #### L 501.6710, L500.2500, L100.0100 ####[facility] [address] [place], [address] Lymphocytes/100 WBC (Bld) 32.9 % Normal 19-41 [facility] Comment on above: Order Comment: 208 Performed By: #### L 501.6710, L500.2500, L100.0100 ####[facility] [address] [place], [address] MCH (RBC) [Entitic mass] 27.1 pg Normal 27.0-32.0 [facility] Comment on above: Order Comment: 208 Performed By: #### L 501.6710, L500.2500, L100.0100 ####[facility] [address] [place], [address] MCHC (RBC) [Mass/Vol] 33.1 g/dL Normal 32-36 [facility] Comment on above: Order Comment: 208 Performed By: #### L 501.6710, L500.2500, L100.0100 ####[facility] [address] [place], [address] MCV (RBC) [Entitic vol] 81.6 fL Normal 80-94 [facility] Comment on above: Order Comment: 208 Performed By: #### L 501.6710, L500.2500, L100.0100 ####[facility] [address] [place], [address] Monocytes/100 WBC (Bld) 6.1 % Normal 0-10 [facility] Comment on above: Order Comment: 208 Performed By: #### L 501.6710, L500.2500, L100.0100 ####[facility] [address] [place], [address] Neutrophils/100 WBC (Bld) 57.9 % Normal 47-70 [facility] Comment on above: Order Comment: 208 Performed By: #### L 501.6710, L500.2500, L100.0100 ####[facility] [address] [place], [address] Nucleated RBC (Bld) [#/Vol] 0 10*3/uL Normal 0-5 [facility] Comment on above: Order Comment: 208 Performed By: #### L 501.6710, L500.2500, L100.0100 ####[facility] [address] [place], [address] Platelet mean volume (Bld) [Entitic vol] 11.4 fL Normal 6.2-12.0 [facility] Comment on above: Order Comment: 208 Performed By: #### L 501.6710, L500.2500, L100.0100 ####[facility] [address] [place], [address] Platelets (Bld) [#/Vol] 199 10*3/uL Normal 150-450 [facility] Comment on above: Order Comment: 208 Performed By: #### L 501.6710, L500.2500, L100.0100 ####[facility] [address] [place], [address] RBC (Bld) [#/Vol] 4.14 10*6/uL Low 4.6-6.2 [facility] Comment on above: Order Comment: 208 Performed By: #### L 501.6710, L500.2500, L100.0100 ####[facility] [address] [place], [address] RDW SD 44.7 fl High 35.1-43.9 [facility] Comment on above: Order Comment: 208 Performed By: #### L 501.6710, L500.2500, L100.0100 ####[facility] [address] [place], [address] WBC (Bld) [#/Vol] 7.9 10*3/uL Normal 4.4-11.0 [facility] Comment on above: Order Comment: 208 Performed By: #### L 501.6710, L500.2500, L100.0100 ####[facility] [address] [place], [address] CRPon 06-23-2025 C-REACTIVE PROT 19.40 mg/L High 0.0-3.0 [facility] Comment on above: Order Comment: 208 Performed By: #### L 501.6710, L500.2500, L100.0100 ####[facility] [address] [place], [address] Carbon dioxide, total [Moles /volume] in Central venous bloodOrdered By: Kelli Salgado on 12-10-2024 CO2 [Moles/Vol] 28.2 mmol/L 21.0-32.0 [facility] Chloride assayOrdered By: Chris Salgado on 12-10-2024 Chloride [Moles/Vol] 99 mmol/L 98-[address] [facility] Eosinophil percentageOrdered By: Kelli Salgado on 12-10-2024 Eosinophils/100 WBC (Bld) 2.3 % 0-5 [facility] Erythrocyte distribution wid th ratioOrdered By: Kelli Salgado on 12-10-2024 Erythrocyte distribution width (RBC) [Ratio] 15.3 % High 11.6-14.6 [facility] Erythrocyte distribution wid th standard deviationOrdered By: Kelli Salgado on 12-10-2024 Erythrocyte distribution width (RBC) [Ratio] 44.7 fl High 35.1-43.9 [facility] Glomerular filtration rate ( GFR) estimation/1.73 sq m using serum, plasma, or whole bOrdered By: Kelli Salgado on 12-10-2024 GFR/1.73 sq M.predicted among non-blacks MDRD (S/P/Bld) [Vol rate/Area] 92 mL/min/{1.73_m2} >60 [facility] Hematocrit Auto (Bld) [Volum e fraction]Ordered By: Kelli Salgado on 12-10-2024 Hematocrit (Bld) [Volume fraction] 33.8 % Low 40-54 [facility] Hemoglobin measurementOrdere d By: Kelli Salgado on 12-10-2024 Hemoglobin (Bld) [Mass/Vol] 11.2 g/dL Low 13.0-16.5 [facility] Immature granulocytes/100 WB C Auto (Bld)Ordered By: Kelli Salgado on 12-10-2024 Immature granulocytes/100 WBC (Bld) 0.300 % 0.0-0.9 [facility] MCV (mean corpuscular volume ) determinationOrdered By: Kelli Salgado on 12-10-2024 MCV (RBC) [Entitic vol] 81.6 fL 80-94 [facility] Mean corpuscular hemoglobin (MCH) determinationOrdered By: Kelli Salgado on 12-10-2024 MCH (RBC) [Entitic mass] 27.1 pg 27.0-32.0 [facility] Monocyte percentageOrdered B y: Kelli Salgado on 12-10-2024 Monocytes/100 WBC (Bld) 6.1 % 0-10 [facility] Neutrophil percentageOrdered By: Kelli Salgado on 12-10-2024 Neutrophils/100 WBC (Bld) 57.9 % 47-70 [facility] Platelet countOrdered By: Chris Salgado on 12-10-2024 Platelets (Bld) [#/Vol] 199 10*3/uL 150-450 [facility] Potassium measurement (mass/ volume)Ordered By: Kelli Salgado on 12-10-2024 Potassium (Unsp spec) [Mass/Vol] 4.2 mmol/L 3.3-5.1 [facility] RBC Auto (Bld) [#/Vol]Ordere d By: Kelli Salgado on 12-10-2024 RBC (Bld) [#/Vol] 4.14 10*6/uL Low 4.6-6.2 [facility] Serum creatinine measurement (mass/volume)Ordered By: Kelli Salgado on 12-10-2024 Creatinine [Mass/Vol] 0.89 mg/dL 0.70-1.20 [facility] Serum glucose measurement (m ass/volume)Ordered By: Kelli Salgado on 12-10-2024 Glucose [Mass/Vol] 147 mg/dL High 70-99 [facility] Serum or plasma C reactive p rotein measurement (mass/volume)Ordered By: Kelli Salgado on 12-10-2024 CRP [Mass/Vol] 19.40 mg/L High 0.0-3.0 [facility] Serum or plasma calcium everardo urement (mass/volume)Ordered By: Kelli Salgado on 12-10-2024 Calcium [Mass/Vol] 9.3 mg/dL 7.6-11.0 [facility] Serum or plasma urea nitroge n measurement (mass/volume)Ordered By: Kelli Salgado on 12-10-2024 Urea nitrogen [Mass/Vol] 29 mg/dL High 4-19 [facility] Sodium levelOrdered By: Nilay Salgado on 12-10-2024 Sodium [Moles/Vol] 140 mmol/L 133-145 [facility] White blood cell (WBC) count Ordered By: Kelli Salgado on 12-10-2024 WBC (Bld) [#/Vol] 7.9 10*3/uL 4.4-11.0 [facility] Brain/Head without Contrasto n 11-29-2024 Brain/Head without Contrast Normal [facility] Absolute lymphocyte countOrd ered By: Kelli Salgado on 11-21-2024 Lymphocytes Auto (Unsp spec) [#/Vol] 2.30 10*3/uL 0.83-4.51 [facility] Absolute neutrophil countOrd ered By: Kelli Salgado on 11-21-2024 Neutrophils (Bld) [#/Vol] 4.4 10*3/uL 2.0-7.7 [facility] Anion gap in Serum or Plasma Ordered By: Kelli Salgado on 11-21-2024 Anion gap [Moles/Vol] 11 mmol/L 5-15 [facility] Automated lymphocyte count a s percentage of total leukocytesOrdered By: Kelli Salgado on 11-21-2024 Lymphocytes/100 WBC Auto (Unsp spec) 30.3 % 19-41 [facility] BUN/creatinine ratioOrdered By: Kelli Salgado on 11-21-2024 Urea nitrogen/Creatinine [Mass ratio] 36.6 mg/mg High 10-20 [facility] Basophil percentageOrdered B y: Kelli Salgado on 11-21-2024 Basophils/100 WBC (Bld) 0.7 % 0-1 [facility] Bilirubin, totalOrdered By: Kelli Salgado on 11-21-2024 Bilirubin [Mass/Vol] 0.46 mg/dL 0.00-1.[address] [facility] CBC W/Diff, Automatedon Absolute Lymph 2.30 X10 3/uL Normal 0.83-4.51 [facility] Comment on above: Performed By: #### L 101.9900, L100.0100, L500.4050, L501.8820 ####[facility] [address] [place], [address] Absolute Neut 4.4 X10 3/uL Normal 2.0-7.7 [facility] Comment on above: Performed By: #### L 101.9900, L100.0100, L500.4050, L501.8820 ####[facility] [address] [place], [address] Basophils/100 WBC (Bld) 0.7 % Normal 0-1 [facility] Comment on above: Performed By: #### L 101.9900, L100.0100, L500.4050, L501.8820 ####[facility] [address] [place], [address] Eosinophils/100 WBC (Bld) 2.8 % Normal 0-5 [facility] Comment on above: Performed By: #### L 101.9900, L100.0100, L500.4050, L501.8820 ####[facility] [address] [place], [address] Erythrocyte distribution width (RBC) [Ratio] 14.6 % Normal 11.6-14.6 [facility] Comment on above: Performed By: #### L 101.9900, L100.0100, L500.4050, L501.8820 ####[facility] [address] [place], [address] Hematocrit (Bld) [Volume fraction] 38.4 % Low 40-54 [facility] Comment on above: Performed By: #### L 101.9900, L100.0100, L500.4050, L501.8820 ####[facility] [address] [place], [address] Hemoglobin (Bld) [Mass/Vol] 12.6 g/dL Low 13.0-16.5 [facility] Comment on above: Performed By: #### L 101.9900, L100.0100, L500.4050, L501.8820 ####[facility] [address] [place], [address] IG% 0.400 Normal 0.0-0.9 [facility] Comment on above: Result Comment: IG% - Immature Granulocytes (promyelocytes, myelocytes andmetamyelocytes) > 1% indicates that a LEFT SHIFT is Present. Performed By: #### L 101.9900, L100.0100, L500.4050, L501.8820 ####[facility] [address] [place], [address] Lymphocytes/100 WBC (Bld) 30.3 % Normal 19-41 [facility] Comment on above: Performed By: #### L 101.9900, L100.0100, L500.4050, L501.8820 ####[facility] [address] [place], [address] MCH (RBC) [Entitic mass] 26.5 pg Low 27.0-32.0 [facility] Comment on above: Performed By: #### L 101.9900, L100.0100, L500.4050, L501.8820 ####[facility] [address] [place], [address] MCHC (RBC) [Mass/Vol] 32.8 g/dL Normal 32-36 [facility] Comment on above: Performed By: #### L 101.9900, L100.0100, L500.4050, L501.8820 ####[facility] [address] [place], [address] MCV (RBC) [Entitic vol] 80.8 fL Normal 80-94 [facility] Comment on above: Performed By: #### L 101.9900, L100.0100, L500.4050, L501.8820 ####[facility] [address] [place], [address] Monocytes/100 WBC (Bld) 7.4 % Normal 0-10 [facility] Comment on above: Performed By: #### L 101.9900, L100.0100, L500.4050, [id number] ####[facility] [address] [place], [address] Neutrophils/100 WBC (Bld) 58.4 % Normal 47-70 [facility] Comment on above: Performed By: #### L 101.9900, L100.0100, L500.4050, L501.8820 ####[facility] [address] [place], [address] Nucleated RBC (Bld) [#/Vol] 0 10*3/uL Normal 0-5 [facility] Comment on above: Performed By: #### L 101.9900, L100.0100, L500.4050, L501.8820 ####[facility] [address] [place], [address] Platelet mean volume (Bld) [Entitic vol] 11.1 fL Normal 6.2-12.0 [facility] Comment on above: Performed By: #### L 101.9900, L100.0100, L500.4050, L501.8820 ####[facility] [address] [place], [address] Platelets (Bld) [#/Vol] 174 10*3/uL Normal 150-450 [facility] Comment on above: Performed By: #### L 101.9900, L100.0100, L500.4050, L501.8820 ####[facility] [address] [place], [address] RBC (Bld) [#/Vol] 4.75 10*6/uL Normal 4.6-6.2 [facility] Comment on above: Performed By: #### L 101.9900, L100.0100, L500.4050, [id number] ####[facility] [address] [place], [address] RDW SD 42.1 fl Normal 35.1-43.9 [facility] Comment on above: Performed By: #### L 101.9900, L100.0100, L500.4050, [id number] ####[facility] [address] [place], [address] WBC (Bld) [#/Vol] 7.6 10*3/uL Normal 4.4-11.0 [facility] Comment on above: Performed By: #### L 101.9900, L100.0100, L500.4050, [id number] ####[facility] [address] [place], [address] Carbon dioxide, total [Moles /volume] in Central venous bloodOrdered By: Kelli Salgado on 11-21-2024 CO2 [Moles/Vol] 29.3 mmol/L 21.0-32.0 [facility] Chloride assayOrdered By: Chris Salgado on 11-21-2024 Chloride [Moles/Vol] 100 mmol/L 98-[address] [facility] Comprehensive Metabolic Prof ilon 11-21-2024 GAP 11 Normal 5-15 [facility] Comment on above: Performed By: #### L 101.9900, L100.0100, L500.4050, L501.8820 ####[facility] [address] [place], [address] Albumin [Mass/Vol] 3.4 g/dL Normal 3.4-4.8 [facility] Comment on above: Performed By: #### L 101.9900, L100.0100, L500.4050, [id number] ####[facility] [address] [place], [address] Albumin/Globulin [Mass ratio] 1.0 {ratio} Normal 0.9-2.4 [facility] Comment on above: Performed By: #### L 101.9900, L100.0100, L500.4050, L501.8820 ####[facility] [address] [place], [address] ALK PHOS 120 U/L Normal 40-129 [facility] Comment on above: Performed By: #### L 101.9900, L100.0100, L500.4050, [id number] ####[facility] [address] [place], [address] ALT [Catalytic activity/Vol] 16 U/L Normal <=46 [facility] Comment on above: Performed By: #### L 101.9900, L100.0100, L500.4050, [id number] ####[facility] [address] [place], [address] AST [Catalytic activity/Vol] 24 U/L Normal <=37 [facility] Comment on above: Performed By: #### L 101.9900, L100.0100, L500.4050, [id number] ####[facility] [address] [place], [address] Bilirubin [Mass/Vol] 0.46 mg/dL Normal 0.00-1.[address] [facility] Comment on above: Performed By: #### L 101.9900, L100.0100, L500.4050, [id number] ####[facility] [address] [place], [address] BUN/CRE 36.6 RATIO High 10-20 [facility] Comment on above: Performed By: #### L 101.9900, L100.0100, L500.4050, [id number] ####[facility] [address] [place], [address] Calcium [Mass/Vol] 9.5 mg/dL Normal 7.6-11.0 [facility] Comment on above: Performed By: #### L 101.9900, L100.0100, L500.4050, [id number] ####[facility] [address] [place], [address] Chloride [Moles/Vol] 100 mmol/L Normal 98-[address] [facility] Comment on above: Performed By: #### L 101.9900, L100.0100, L500.4050, [id number] ####[facility] [address] [place], [address] CO2 [Moles/Vol] 29.3 mmol/L Normal 21.0-32.0 [facility] Comment on above: Performed By: #### L 101.9900, L100.0100, L500.4050, [id number] ####[facility] [address] [place], [address] Creatinine [Mass/Vol] 0.71 mg/dL Normal 0.70-1.20 [facility] Comment on above: Performed By: #### L 101.9900, L100.0100, L500.4050, [id number] ####[facility] [address] [place], [address] GFR/1.73 sq M.predicted among non-blacks MDRD (S/P/Bld) [Vol rate/Area] 99 mL/min/{1.73_m2} Normal >60 [facility] Comment on above: Result Comment: mL/m in/1.73m2 CKD-EPI Creatinine Equation (2020) Performed By: #### L 101.9900, L100.0100, L500.4050, [id number] ####[facility] [address] [place], [address] Globulin (S) [Mass/Vol] 3.5 g/dL Normal 2.2-4.2 [facility] Comment on above: Performed By: #### L 101.9900, L100.0100, L500.4050, [id number] ####[facility] [address] [place], [address] Glucose [Mass/Vol] 141 mg/dL High 70-99 [facility] Comment on above: Performed By: #### L 101.9900, L100.0100, L500.4050, [id number] ####[facility] [address] [place], [address] Potassium [Moles/Vol] 4.1 mmol/L Normal 3.3-5.1 [facility] Comment on above: Performed By: #### L 101.9900, L100.0100, L500.4050, [id number] ####[facility] [address] [place], [address] Sodium [Moles/Vol] 139 mmol/L Normal 133-145 [facility] Comment on above: Performed By: #### L 101.9900, L100.0100, L500.4050, [id number] ####[facility] [address] [place], [address] T PROT 6.8 g/dL Normal 5.9-8.4 [facility] Comment on above: Performed By: #### L 101.9900, L100.0100, L500.4050, [id number] ####[facility] [address] [place], [place], [address] Urea nitrogen [Mass/Vol] 26 mg/dL High 4-19 [facility] Comment on above: Performed By: #### L 101.9900, L100.0100, L500.4050, [id number] ####[facility] [address] [place], [place], [id number] Eosinophil percentageOrdered By: Kelli Salgado on 11-21-2024 Eosinophils/100 WBC (Bld) 2.8 % 0-5 [facility] Erythrocyte Sed Rateon 11-21 SED RATE 27 mm/hr High 0- [facility] Comment on above: Performed By: #### L 101.9900, L100.0100, L500.4050, [id number] ####[facility] [address] [place], [place], [id number] Erythrocyte distribution wid th ratioOrdered By: Kelli Salgado on 11-21-2024 Erythrocyte distribution width (RBC) [Ratio] 14.6 % 11.6-14.6 [facility] Erythrocyte distribution wid th standard deviationOrdered By: Kelli Salgado on 11-21-2024 Erythrocyte distribution width (RBC) [Ratio] 42.1 fl 35.1-43.9 [facility] Erythrocyte sedimentation ra teOrdered By: Kelli Salgado on 11-21-2024 ESR (Bld) [Velocity] 27 mm/h High 0- [facility] Glomerular filtration rate ( GFR) estimation/1.73 sq m using serum, plasma, or whole bOrdered By: Kelli Salgado on 11-21-2024 GFR/1.73 sq M.predicted among non-blacks MDRD (S/P/Bld) [Vol rate/Area] 99 mL/min/{1.73_m2} >60 [facility] Comment on above: mL/min/1.73m2 CKD-EP I Creatinine Equation (2020) Hematocrit Auto (Bld) [Volum e fraction]Ordered By: Kelli Salgado on 11-21-2024 Hematocrit (Bld) [Volume fraction] 38.4 % Low 40-54 [facility] Hemoglobin measurementOrdere d By: Kelli Salgado on 11-21-2024 Hemoglobin (Bld) [Mass/Vol] 12.6 g/dL Low 13.0-16.5 [facility] Immature granulocytes/100 WB C Auto (Bld)Ordered By: Kelli Salgado on 11-21-2024 Immature granulocytes/100 WBC (Bld) 0.400 % 0.0-0.9 [facility] Comment on above: IG% - Immature Granu locytes (promyelocytes, myelocytes and metamyelocytes) > 1% indicates that a LEFT SHIFT is Present. Laboratory - Chemistry and C hemistry - challengeOrdered By: Kelli Salgado on 11-21-2024 AST [Catalytic activity/Vol] 24 U/L <38 [facility] MCV (mean corpuscular volume ) determinationOrdered By: Kelli Salgado on 11-21-2024 MCV (RBC) [Entitic vol] 80.8 fL 80-94 [facility] Mean corpuscular hemoglobin (MCH) determinationOrdered By: Kelli Salgado on 11-21-2024 MCH (RBC) [Entitic mass] 26.5 pg Low 27.0-32.0 [facility] Mean corpuscular hemoglobin concentration (MCHC) determinationOrdered By: Kelli Salgado on 11-21-2024 MCHC (RBC) [Mass/Vol] 32.8 g/dL 32-36 [facility] Mean platelet volume determi nationOrdered By: Kelli Salgado on 11-21-2024 Platelet mean volume (Bld) [Entitic vol] 11.1 fL 6.2-12.0 [facility] Monocyte percentageOrdered B y: Kelli Salgado on 11-21-2024 Monocytes/100 WBC (Bld) 7.4 % 0-10 [facility] Neutrophil percentageOrdered By: Kelli Salgado on 11-21-2024 Neutrophils/100 WBC (Bld) 58.4 % 47-70 [facility] No Panel InformationOrdered By: Kelli Salgado on 11-21-2024 24 U/L <38 [facility] Nucleated red blood cell per centageOrdered By: Kelli Salgado on 11-21-2024 Nucleated RBC/100 WBC (Bld) [Ratio] 0 % 0-5 [facility] Platelet countOrdered By: Chris Salgado on 11-21-2024 Platelets (Bld) [#/Vol] 174 10*3/uL 150-450 [facility] Potassium measurement (mass/ volume)Ordered By: Kelli Salgado on 11-21-2024 Potassium (Unsp spec) [Mass/Vol] 4.1 mmol/L 3.3-5.1 [facility] RBC Auto (Bld) [#/Vol]Ordere d By: Kelli Salgado on 11-21-2024 RBC (Bld) [#/Vol] 4.75 10*6/uL 4.6-6.2 [facility] Serum creatinine measurement (mass/volume)Ordered By: Kelli Salgado on 11-21-2024 Creatinine [Mass/Vol] 0.71 mg/dL 0.70-1.20 [facility] Serum globulin measurementOr dered By: Kelli Salgado on 11-21-2024 Globulin (S) [Mass/Vol] 3.5 g/dL 2.2-4.2 [facility] Serum glucose measurement (m ass/volume)Ordered By: Kelli Salgado on 11-21-2024 Glucose [Mass/Vol] 141 mg/dL High 70-99 [facility] Serum or plasma alanine herrmann otransferase (ALT) measurementOrdered By: Kelli Salgado on 11-21-2024 ALT [Catalytic activity/Vol] 16 U/L <47 [facility] Serum or plasma albumin everardo urement (mass/volume)Ordered By: Kelli Salgado on 11-21-2024 Albumin [Mass/Vol] 3.4 g/dL 3.4-4.8 [facility] Serum or plasma albumin/glob ulin mass ratioOrdered By: Kelli Salgado on 11-21-2024 Albumin/Globulin [Mass ratio] 1.0 {ratio} 0.9-2.4 [facility] Serum or plasma alkaline kaiser sphatase measurementOrdered By: Kelli Salgado on 11-21-2024 ALP [Catalytic activity/Vol] 120 U/L 40-129 [facility] Serum or plasma calcium everardo urement (mass/volume)Ordered By: Kelli Salgado on 11-21-2024 Calcium [Mass/Vol] 9.5 mg/dL 7.6-11.0 [facility] Serum or plasma urea nitroge n measurement (mass/volume)Ordered By: Kelli Salgado on 11-21-2024 Urea nitrogen [Mass/Vol] 26 mg/dL High 4-19 [facility] Sodium levelOrdered By: Nilay Salgado on 11-21-2024 Sodium [Moles/Vol] 139 mmol/L 133-145 [facility] Total proteinOrdered By: Tawanda Salgado on 11-21-2024 Protein [Mass/Vol] 6.8 g/dL 5.9-8.4 [facility] Trough vancomycin levelOrder ed By: Kelli Salgado on 11-21-2024 Vancomycin trough [Mass/Vol] 17.7 ug/mL High 5.0-15.0 [facility] Comment on above: Recommended goal tro [...] therapy recommended for serious lifethreatening infections include:- Oyvhwlavpi-Gihilqsizyjl-Ajcovblkq (Ventilator/Healtcare Associated)-Sepsis PLEASE CONTACT PHARMACY SERVICES (#[id number]) FOR INTERPRETATIONOF RESULTS. Vancomycin, Trough Levelon 0 11-21-2024 VANCO, TROUGH 17.7 ug/mL High 5.0-15.0 [facility] Comment on above: Order Comment: 0000 [...] therapy recommended for serious lifethreatening infections include:- Iiyxazovir-Jzjogltrndpc-Eqrrrqfnr (Ventilator/Healtcare Associated)-SepsisPLEASE CONTACT PHARMACY SERVICES (#[id number]) FOR INTERPRETATIONOF RESULTS. Performed By: #### L 101.9900, L100.0100, L500.4050, [id number] ####[facility] [address] [place], [address] White blood cell (WBC) count Ordered By: Kelli Salgado on 11-21-2024 WBC (Bld) [#/Vol] 7.6 10*3/uL 4.4-11.0 [facility] Absolute lymphocyte countOrd ered By: Kelli Salgado on 11-14-2024 Lymphocytes Auto (Unsp spec) [#/Vol] 2.69 10*3/uL 0.83-4.51 [facility] Absolute neutrophil countOrd ered By: Kelli Salgado on 11-14-2024 Neutrophils (Bld) [#/Vol] 3.1 10*3/uL 2.0-7.7 [facility] Anion gap in Serum or Plasma Ordered By: Kelli Salgado on 11-14-2024 Anion gap [Moles/Vol] 12 mmol/L 5- [facility] Automated lymphocyte count a s percentage of total leukocytesOrdered By: Kelli Salgado on 11-14-2024 Lymphocytes/100 WBC Auto (Unsp spec) 40.0 % [facility] BUN/creatinine ratioOrdered By: Kelli Salgado on 11-14-2024 Urea nitrogen/Creatinine [Mass ratio] 46.0 mg/mg High 10-20 [facility] Basophil percentageOrdered B y: Kelli Salgado on 11-14-2024 Basophils/100 WBC (Bld) 0.7 % 0-1 [facility] Bilirubin, totalOrdered By: Kelli Salgado on 11-14-2024 Bilirubin [Mass/Vol] 0.42 mg/dL 0.00-1.[address] [facility] CBC W/Diff, Automatedon 10-19 Absolute Lymph 2.69 X10 3/uL Normal 0.83-4.51 [facility] Comment on above: Order Comment: 208 Performed By: #### L 501.6710, L100.0100, L101.9900, L500.4050, [id number] ####[facility] [address] [place], [address] Absolute Neut 3.1 X10 3/uL Normal 2.0-7.7 [facility] Comment on above: Order Comment: 208 Performed By: #### L 501.6710, L100.0100, L101.9900, L500.4050, [id number] ####[facility] [address] [place], [address] Basophils/100 WBC (Bld) 0.7 % Normal 0-1 [facility] Comment on above: Order Comment: 208 Performed By: #### L 501.6710, L100.0100, L101.9900, L500.4050, [id number] ####[facility] [address] [place], [address] Eosinophils/100 WBC (Bld) 4.2 % Normal 0-5 [facility] Comment on above: Order Comment: 208 Performed By: #### L 501.6710, L100.0100, L101.9900, L500.4050, [id number] ####[facility] [address] [place], [address] Erythrocyte distribution width (RBC) [Ratio] 14.4 % Normal 11.6-14.6 [facility] Comment on above: Order Comment: 208 Performed By: #### L 501.6710, L100.0100, L101.9900, L500.4050, [id number] ####[facility] [address] [place], [address] Hematocrit (Bld) [Volume fraction] 36.6 % Low 40-54 [facility] Comment on above: Order Comment: 208 Performed By: #### L 501.6710, L100.0100, L101.9900, L500.4050, [id number] ####[facility] [address] [place], [address] Hemoglobin (Bld) [Mass/Vol] 11.9 g/dL Low 13.0-16.5 [facility] Comment on above: Order Comment: 208 Performed By: #### L 501.6710, L100.0100, L101.9900, L500.4050, [id number] ####[facility] [address] [place], [address] IG% 0.100 Normal 0.0-0.9 [facility] Comment on above: Order Comment: 208 Result Comment: IG% - Immature Granulocytes (promyelocytes, myelocytes andmetamyelocytes) > 1% indicates that a LEFT SHIFT is Present. Performed By: #### L 501.6710, L100.0100, L101.9900, L500.4050, [id number] ####[facility] [address] [place], [address] Lymphocytes/100 WBC (Bld) 40.0 % Normal 19-41 [facility] Comment on above: Order Comment: 208 Performed By: #### L 501.6710, L100.0100, L101.9900, L500.4050, [id number] ####[facility] [address] [place], [address] MCH (RBC) [Entitic mass] 26.6 pg Low 27.0-32.0 [facility] Comment on above: Order Comment: 208 Performed By: #### L 501.6710, L100.0100, L101.9900, L500.4050, [id number] ####[facility] [address] [place], [address] MCHC (RBC) [Mass/Vol] 32.5 g/dL Normal 32-36 [facility] Comment on above: Order Comment: 208 Performed By: #### L 501.6710, L100.0100, L101.9900, L500.4050, [id number] ####[facility] [address] [place], [address] MCV (RBC) [Entitic vol] 81.9 fL Normal 80-94 [facility] Comment on above: Order Comment: 208 Performed By: #### L 501.6710, L100.0100, L101.9900, L500.4050, [id number] ####[facility] [address] [place], [address] Monocytes/100 WBC (Bld) 8.5 % Normal 0-10 [facility] Comment on above: Order Comment: 208 Performed By: #### L 501.6710, L100.0100, L101.9900, L500.4050, [id number] ####[facility] [address] [place], [address] Neutrophils/100 WBC (Bld) 46.5 % Low 47-70 [facility] Comment on above: Order Comment: 208 Performed By: #### L 501.6710, L100.0100, L101.9900, L500.4050, [id number] ####[facility] [address] [place], [address] Nucleated RBC (Bld) [#/Vol] 0 10*3/uL Normal 0-5 [facility] Comment on above: Order Comment: 208 Performed By: #### L 501.6710, L100.0100, L101.9900, L500.4050, [id number] ####[facility] [address] [place], [address] Platelet mean volume (Bld) [Entitic vol] 11.3 fL Normal 6.2-12.0 [facility] Comment on above: Order Comment: 208 Performed By: #### L 501.6710, L100.0100, L101.9900, L500.4050, [id number] ####[facility] [address] [place], [address] Platelets (Bld) [#/Vol] 199 10*3/uL Normal 150-450 [facility] Comment on above: Order Comment: 208 Performed By: #### L 501.6710, L100.0100, L101.9900, L500.4050, [id number] ####[facility] [address] [place], [address] RBC (Bld) [#/Vol] 4.47 10*6/uL Low 4.6-6.2 [facility] Comment on above: Order Comment: 208 Performed By: #### L 501.6710, L100.0100, L101.9900, L500.4050, [id number] ####[facility] [address] [place], [address] RDW SD 41.3 fl Normal 35.1-43.9 [facility] Comment on above: Order Comment: 208 Performed By: #### L 501.6710, L100.0100, L101.9900, L500.4050, [id number] ####[facility] [address] [place], [address] WBC (Bld) [#/Vol] 6.7 10*3/uL Normal 4.4-11.0 [facility] Comment on above: Order Comment: 208 Performed By: #### L 501.6710, L100.0100, L101.9900, L500.4050, [id number] ####[facility] [address] [place], [address] CRPon 11-14-2024 C-REACTIVE PROT 12.40 mg/L High 0.0-3.0 [facility] Comment on above: Order Comment: 208 Performed By: #### L 501.6710, L100.0100, L101.9900, L500.4050, [id number] ####[facility] [address] [place], [place], [id number] Carbon dioxide, total [Moles /volume] in Central venous bloodOrdered By: Kelli Salgado on 11-14-2024 CO2 [Moles/Vol] 26.9 mmol/L 21.0-32.0 [facility] Chloride assayOrdered By: Chris Salgado on 11-14-2024 Chloride [Moles/Vol] 103 mmol/L 98-[address] [facility] Comprehensive Metabolic Prof ilon 11-14-2024 Albumin [Mass/Vol] 3.4 g/dL Normal 3.4-4.8 [facility] Comment on above: Order Comment: 208 Performed By: #### L 501.6710, L100.0100, L101.9900, L500.4050, [id number] ####[facility] [address] [place], [address] Albumin/Globulin [Mass ratio] 1.0 {ratio} Normal 0.9-2.4 [facility] Comment on above: Order Comment: 208 Performed By: #### L 501.6710, L100.0100, L101.9900, L500.4050, [id number] ####[facility] [address] [place], [address] ALK PHOS 110 U/L Normal 40-129 [facility] Comment on above: Order Comment: 208 Performed By: #### L 501.6710, L100.0100, L101.9900, L500.4050, [id number] ####[facility] [address] [place], [address] ALT [Catalytic activity/Vol] 18 U/L Normal <=46 [facility] Comment on above: Order Comment: 208 Performed By: #### L 501.6710, L100.0100, L101.9900, L500.4050, [id number] ####[facility] [address] [place], [address] AST [Catalytic activity/Vol] 23 U/L Normal <=37 [facility] Comment on above: Order Comment: 208 Performed By: #### L 501.6710, L100.0100, L101.9900, L500.4050, [id number] ####[facility] [address] [place], [address] Bilirubin [Mass/Vol] 0.42 mg/dL Normal 0.00-1.[address] [facility] Comment on above: Order Comment: 208 Performed By: #### L 501.6710, L100.0100, L101.9900, L500.4050, [id number] ####[facility] [address] [place], [address] BUN/CRE 46.0 RATIO High 10-20 [facility] Comment on above: Order Comment: 208 Performed By: #### L 501.6710, L100.0100, L101.9900, L500.4050, [id number] ####[facility] [address] [place], [address] Calcium [Mass/Vol] 9.6 mg/dL Normal 7.6-11.0 [facility] Comment on above: Order Comment: 208 Performed By: #### L 501.6710, L100.0100, L101.9900, L500.4050, [id number] ####[facility] [address] [place], [address] Chloride [Moles/Vol] 103 mmol/L Normal 98-[address] [facility] Comment on above: Order Comment: 208 Performed By: #### L 501.6710, L100.0100, L101.9900, L500.4050, [id number] ####[facility] [address] [place], [address] CO2 [Moles/Vol] 26.9 mmol/L Normal 21.0-32.0 [facility] Comment on above: Order Comment: 208 Performed By: #### L 501.6710, L100.0100, L101.9900, L500.4050, [id number] ####[facility] [address] [place], [address] Creatinine [Mass/Vol] 0.67 mg/dL Low 0.70-1.20 [facility] Comment on above: Order Comment: 208 Performed By: #### L 501.6710, L100.0100, L101.9900, L500.4050, [id number] ####[facility] [address] [place], [address] GAP 12 Normal 5-15 [facility] Comment on above: Order Comment: 208 Performed By: #### L 501.6710, L100.0100, L101.9900, L500.4050, [id number] ####[facility] [address] [place], [address] GFR/1.73 sq M.predicted among non-blacks MDRD (S/P/Bld) [Vol rate/Area] 101 mL/min/{1.73_m2} Normal >60 [facility] Comment on above: Order Comment: 208 Result Comment: mL/m in/1.73m2 CKD-EPI Creatinine Equation (2020) Performed By: #### L 501.6710, L100.0100, L101.9900, L500.4050, [id number] ####[facility] [address] [place], [address] Globulin (S) [Mass/Vol] 3.3 g/dL Normal 2.2-4.2 [facility] Comment on above: Order Comment: 208 Performed By: #### L 501.6710, L100.0100, L101.9900, L500.4050, [id number] ####[facility] [address] [place], [address] Glucose [Mass/Vol] 124 mg/dL High 70-99 [facility] Comment on above: Order Comment: 208 Performed By: #### L 501.6710, L100.0100, L101.9900, L500.4050, [id number] ####[facility] [address] [place], [address] Potassium [Moles/Vol] 4.1 mmol/L Normal 3.3-5.1 [facility] Comment on above: Order Comment: 208 Performed By: #### L 501.6710, L100.0100, L101.9900, L500.4050, [id number] ####[facility] [address] [place], [address] Sodium [Moles/Vol] 141 mmol/L Normal 133-145 [facility] Comment on above: Order Comment: 208 Performed By: #### L 501.6710, L100.0100, L101.9900, L500.4050, [id number] ####[facility] [address] [place], [address] T PROT 6.7 g/dL Normal 5.9-8.4 [facility] Comment on above: Order Comment: 208 Performed By: #### L 501.6710, L100.0100, L101.9900, L500.4050, [id number] ####[facility] [address] [place], [address] Urea nitrogen [Mass/Vol] 31 mg/dL High 4-19 [facility] Comment on above: Order Comment: 208 Performed By: #### L 501.6710, L100.0100, L101.9900, L500.4050, [id number] ####[facility] [address] [place], [address] Eosinophil percentageOrdered By: Kelli Salgado on 11-14-2024 Eosinophils/100 WBC (Bld) 4.2 % 0-5 [facility] Erythrocyte Sed Rateon 11-14 SED RATE 39 mm/hr High 0-20 [facility] Comment on above: Order Comment: 208 Performed By: #### L 501.6710, L100.0100, L101.9900, L500.4050, [id number] ####[facility] [address] [place], [address] Erythrocyte distribution wid th ratioOrdered By: Kelli Salgado on 11-14-2024 Erythrocyte distribution width (RBC) [Ratio] 14.4 % 11.6-14.6 [facility] Erythrocyte distribution wid th standard deviationOrdered By: Kelli Slagado on 11-14-2024 Erythrocyte distribution width (RBC) [Ratio] 41.3 fl 35.1-43.9 [facility] Erythrocyte sedimentation ra teOrdered By: Kelli Salgado on 11-14-2024 ESR (Bld) [Velocity] 39 mm/h High 0-[address] [facility] Glomerular filtration rate ( GFR) estimation/1.73 sq m using serum, plasma, or whole bOrdered By: Kelli Salgado on 11-14-2024 GFR/1.73 sq M.predicted among non-blacks MDRD (S/P/Bld) [Vol rate/Area] 101 mL/min/{1.73_m2} >60 [facility] Comment on above: mL/min/1.73m2 CKD-EP I Creatinine Equation (2020) Hematocrit Auto (Bld) [Volum e fraction]Ordered By: Kelli Salgado on 11-14-2024 Hematocrit (Bld) [Volume fraction] 36.6 % Low 40-54 [facility] Hemoglobin measurementOrdere d By: Kelli Salgado on 11-14-2024 Hemoglobin (Bld) [Mass/Vol] 11.9 g/dL Low 13.0-16.5 [facility] Immature granulocytes/100 WB C Auto (Bld)Ordered By: Kelli Salgado on 11-14-2024 Immature granulocytes/100 WBC (Bld) 0.100 % 0.0-0.9 [facility] Comment on above: IG% - Immature Granu locytes (promyelocytes, myelocytes and metamyelocytes) > 1% indicates that a LEFT SHIFT is Present. Laboratory - Chemistry and C hemistry - challengeOrdered By: Kelli Salgado on 11-14-2024 AST [Catalytic activity/Vol] 23 U/L <38 [facility] MCV (mean corpuscular volume ) determinationOrdered By: Kelli Salgado on 11-14-2024 MCV (RBC) [Entitic vol] 81.9 fL 80-94 [facility] Mean corpuscular hemoglobin (MCH) determinationOrdered By: Kelli Salgado on 11-14-2024 MCH (RBC) [Entitic mass] 26.6 pg Low 27.0-32.0 [facility] Mean corpuscular hemoglobin concentration (MCHC) determinationOrdered By: Kelli Salgado on 11-14-2024 MCHC (RBC) [Mass/Vol] 32.5 g/dL 32-36 [facility] Mean platelet volume determi nationOrdered By: Kelli Salgado on 11-14-2024 Platelet mean volume (Bld) [Entitic vol] 11.3 fL 6.2-12.0 [facility] Monocyte percentageOrdered B y: Kelli Salgado on 11-14-2024 Monocytes/100 WBC (Bld) 8.5 % 0-10 [facility] Neutrophil percentageOrdered By: Kelli Salgado on 11-14-2024 Neutrophils/100 WBC (Bld) 46.5 % Low 47-70 [facility] No Panel InformationOrdered By: Kelli Salgado on 11-14-2024 23 U/L <38 [facility] Nucleated red blood cell per centageOrdered By: Kelli Salgado on 11-14-2024 Nucleated RBC/100 WBC (Bld) [Ratio] 0 % 0-5 [facility] Platelet countOrdered By: Chris Salgado on 11-14-2024 Platelets (Bld) [#/Vol] 199 10*3/uL 150-450 [facility] Potassium measurement (mass/ volume)Ordered By: Kelli Salgado on 11-14-2024 Potassium (Unsp spec) [Mass/Vol] 4.1 mmol/L 3.3-5.1 [facility] RBC Auto (Bld) [#/Vol]Ordere d By: Kelli Salgado on 11-14-2024 RBC (Bld) [#/Vol] 4.47 10*6/uL Low 4.6-6.2 [facility] Serum creatinine measurement (mass/volume)Ordered By: Kelli Salgado on 11-14-2024 Creatinine [Mass/Vol] 0.67 mg/dL Low 0.70-1.20 [facility] Serum globulin measurementOr dered By: Kelli Salgado on 11-14-2024 Globulin (S) [Mass/Vol] 3.3 g/dL 2.2-4.2 [facility] Serum glucose measurement (m ass/volume)Ordered By: Kelli Salgado on 11-14-2024 Glucose [Mass/Vol] 124 mg/dL High 70-99 [facility] Serum or plasma C reactive p rotein measurement (mass/volume)Ordered By: Kelli Salgado on 11-14-2024 CRP [Mass/Vol] 12.40 mg/L High 0.0-3.0 [facility] Serum or plasma alanine herrmann otransferase (ALT) measurementOrdered By: Kelli Salgado on 11-14-2024 ALT [Catalytic activity/Vol] 18 U/L <47 [facility] Serum or plasma albumin everardo urement (mass/volume)Ordered By: Kelli Salgado on 11-14-2024 Albumin [Mass/Vol] 3.4 g/dL 3.4-4.8 [facility] Serum or plasma albumin/glob ulin mass ratioOrdered By: Kelli Salgado on 11-14-2024 Albumin/Globulin [Mass ratio] 1.0 {ratio} 0.9-2.4 [facility] Serum or plasma alkaline kaiser sphatase measurementOrdered By: Kelli Salgado on 11-14-2024 ALP [Catalytic activity/Vol] 110 U/L 40-129 [facility] Serum or plasma calcium everardo urement (mass/volume)Ordered By: Kelli Salgado on 11-14-2024 Calcium [Mass/Vol] 9.6 mg/dL 7.6-11.0 [facility] Serum or plasma urea nitroge n measurement (mass/volume)Ordered By: Kelli Salgado on 11-14-2024 Urea nitrogen [Mass/Vol] 31 mg/dL High 4-19 [facility] Sodium levelOrdered By: Nilay Salgado on 11-14-2024 Sodium [Moles/Vol] 141 mmol/L 133-145 [facility] Total proteinOrdered By: Tawanda Salgado on 11-14-2024 Protein [Mass/Vol] 6.7 g/dL 5.9-8.4 [facility] Trough vancomycin levelOrder ed By: Kelli Salgado on 11-14-2024 Vancomycin trough [Mass/Vol] 17.6 ug/mL High 5.0-15.0 [facility] Comment on above: Recommended goal tro [...] therapy recommended for serious lifethreatening infections include:- Ihrzjsgkps-Exoyupmolzst-Qrtxprkny (Ventilator/Healtcare Associated)-Sepsis PLEASE CONTACT PHARMACY SERVICES (#[id number]) FOR INTERPRETATIONOF RESULTS. Vancomycin, Trough Levelon 0 11-14-2024 VANCO, TROUGH 17.6 ug/mL High 5.0-15.0 [facility] Comment on above: Order Comment: Result [...] therapy recommended for serious lifethreatening infections include:- Dkvjjfgrgz-Ykvxplfijvaa-Dayfesenn (Ventilator/Healtcare Associated)-SepsisPLEASE CONTACT PHARMACY SERVICES (#[id number]) FOR INTERPRETATIONOF RESULTS. Performed By: #### L 501.6710, L100.0100, L101.9900, L500.4050, L501.8820 ####[facility] [address] [place], [place], [address] White blood cell (WBC) count Ordered By: Kelli Salgado on 11-14-2024 WBC (Bld) [#/Vol] 6.7 10*3/uL 4.4-11.0 [facility] Absolute lymphocyte countOrd ered By: Kelli Salgado on 11-07-2024 Lymphocytes Auto (Unsp spec) [#/Vol] 2.39 10*3/uL 0.83-4.51 [facility] Absolute neutrophil countOrd ered By: Kelli Salgado on 11-07-2024 Neutrophils (Bld) [#/Vol] 3.3 10*3/uL 2.0-7.7 [facility] Anion gap in Serum or Plasma Ordered By: Kelli Salgado on 11-07-2024 Anion gap [Moles/Vol] 11 mmol/L - [facility] Automated lymphocyte count a s percentage of total leukocytesOrdered By: Kelli Salgado on 11-07-2024 Lymphocytes/100 WBC Auto (Unsp spec) 36.4 % - [facility] BUN/creatinine ratioOrdered By: Kellidelmer Salgado on 11-07-2024 Urea nitrogen/Creatinine [Mass ratio] 38.8 mg/mg High 10- [facility] Basophil percentageOrdered B y: Kelli Salgado on 11-07-2024 Basophils/100 WBC (Bld) 0.9 % 0-1 [facility] Bilirubin, totalOrdered By: Kelli Salgado on 11-07-2024 Bilirubin [Mass/Vol] 0.51 mg/dL 0.00-1.[address] [facility] CBC W/Diff, Automatedon 10-19 Absolute Lymph 2.39 X10 3/uL Normal 0.83-4.51 [facility] Comment on above: Order Comment: 208 Performed By: #### L 101.9900, L100.0100, L501.8820, L501.6710, L500.4050 ####[facility] [address] [place], [address] Absolute Neut 3.3 X10 3/uL Normal 2.0-7.7 [facility] Comment on above: Order Comment: 208 Performed By: #### L 101.9900, L100.0100, L501.8820, L501.6710, L500.4050 ####[facility] [address] [place], [address] Basophils/100 WBC (Bld) 0.9 % Normal 0-1 [facility] Comment on above: Order Comment: 208 Performed By: #### L 101.9900, L100.0100, L501.8820, L501.6710, L500.4050 ####[facility] [address] [place], [address] Eosinophils/100 WBC (Bld) 5.5 % High 0-5 [facility] Comment on above: Order Comment: 208 Performed By: #### L 101.9900, L100.0100, L501.8820, L501.6710, L500.4050 ####[facility] [address] [place], [address] Erythrocyte distribution width (RBC) [Ratio] 14.1 % Normal 11.6-14.6 [facility] Comment on above: Order Comment: 208 Performed By: #### L 101.9900, L100.0100, L501.8820, L501.6710, L500.4050 ####[facility] [address] [place], [address] Hematocrit (Bld) [Volume fraction] 36.4 % Low 40-54 [facility] Comment on above: Order Comment: 208 Performed By: #### L 101.9900, L100.0100, L501.8820, L501.6710, L500.4050 ####[facility] [address] [place], [address] Hemoglobin (Bld) [Mass/Vol] 11.8 g/dL Low 13.0-16.5 [facility] Comment on above: Order Comment: 208 Performed By: #### L 101.9900, L100.0100, L501.8820, L501.6710, L500.4050 ####[facility] [address] [place], [address] IG% 0.300 Normal 0.0-0.9 [facility] Comment on above: Order Comment: 208 Result Comment: IG% - Immature Granulocytes (promyelocytes, myelocytes andmetamyelocytes) > 1% indicates that a LEFT SHIFT is Present. Performed By: #### L 101.9900, L100.0100, L501.8820, L501.6710, L500.4050 ####[facility] [address] [place], [address] Lymphocytes/100 WBC (Bld) 36.4 % Normal 19-41 [facility] Comment on above: Order Comment: 208 Performed By: #### L 101.9900, L100.0100, L501.8820, L501.6710, L500.4050 ####[facility] [address] [place], [address] MCH (RBC) [Entitic mass] 26.3 pg Low 27.0-32.0 [facility] Comment on above: Order Comment: 208 Performed By: #### L 101.9900, L100.0100, L501.8820, L501.6710, L500.4050 ####[facility] [address] [place], [address] MCHC (RBC) [Mass/Vol] 32.4 g/dL Normal 32-36 [facility] Comment on above: Order Comment: 208 Performed By: #### L 101.9900, L100.0100, L501.8820, L501.6710, L500.4050 ####[facility] [address] [place], [address] MCV (RBC) [Entitic vol] 81.1 fL Normal 80-94 [facility] Comment on above: Order Comment: 208 Performed By: #### L 101.9900, L100.0100, L501.8820, L501.6710, L500.4050 ####[facility] [address] [place], [address] Monocytes/100 WBC (Bld) 6.9 % Normal 0-10 [facility] Comment on above: Order Comment: 208 Performed By: #### L 101.9900, L100.0100, L501.8820, L501.6710, L500.4050 ####[facility] [address] [place], [address] Neutrophils/100 WBC (Bld) 50.0 % Normal 47-70 [facility] Comment on above: Order Comment: 208 Performed By: #### L 101.9900, L100.0100, L501.8820, L501.6710, L500.4050 ####[facility] [address] [place], [address] Nucleated RBC (Bld) [#/Vol] 0 10*3/uL Normal 0-5 [facility] Comment on above: Order Comment: 208 Performed By: #### L 101.9900, L100.0100, L501.8820, L501.6710, L500.4050 ####[facility] [address] [place], [address] Platelet mean volume (Bld) [Entitic vol] 10.8 fL Normal 6.2-12.0 [facility] Comment on above: Order Comment: 208 Performed By: #### L 101.9900, L100.0100, L501.8820, L501.6710, L500.4050 ####[facility] [address] [place], [address] Platelets (Bld) [#/Vol] 239 10*3/uL Normal 150-450 [facility] Comment on above: Order Comment: 208 Performed By: #### L 101.9900, L100.0100, L501.8820, L501.6710, L500.4050 ####[facility] [address] [place], [address] RBC (Bld) [#/Vol] 4.49 10*6/uL Low 4.6-6.2 [facility] Comment on above: Order Comment: 208 Performed By: #### L 101.9900, L100.0100, L501.8820, L501.6710, L500.4050 ####[facility] [address] [place], [address] RDW SD 41.3 fl Normal 35.1-43.9 [facility] Comment on above: Order Comment: 208 Performed By: #### L 101.9900, L100.0100, L501.8820, L501.6710, L500.4050 ####[facility] [address] [place], [address] WBC (Bld) [#/Vol] 6.6 10*3/uL Normal 4.4-11.0 [facility] Comment on above: Order Comment: 208 Performed By: #### L 101.9900, L100.0100, L501.8820, L501.6710, L500.4050 ####[facility] [address] [place], [address] CRPon 11-07-2024 C-REACTIVE PROT 10.60 mg/L High 0.0-3.0 [facility] Comment on above: Order Comment: 208 Performed By: #### L 101.9900, L100.0100, L501.8820, L501.6710, L500.4050 ####[facility] [address] [place], [address] Carbon dioxide, total [Moles /volume] in Central venous bloodOrdered By: Kelli Salgado on 11-07-2024 CO2 [Moles/Vol] 27.4 mmol/L 21.0-32.0 [facility] Chloride assayOrdered By: Chris Salgado on 11-07-2024 Chloride [Moles/Vol] 101 mmol/L 98-[address] [facility] Comprehensive Metabolic Prof ilon 11-07-2024 Albumin [Mass/Vol] 3.3 g/dL Low 3.4-4.8 [facility] Comment on above: Order Comment: 208 Performed By: #### L 101.9900, L100.0100, L501.8820, L501.6710, L500.4050 ####[facility] [address] [place], [address] Albumin/Globulin [Mass ratio] 0.9 {ratio} Normal 0.9-2.4 [facility] Comment on above: Order Comment: 208 Performed By: #### L 101.9900, L100.0100, L501.8820, L501.6710, L500.4050 ####[facility] [address] [place], [address] ALK PHOS 111 U/L Normal 40-129 [facility] Comment on above: Order Comment: 208 Performed By: #### L 101.9900, L100.0100, L501.8820, L501.6710, L500.4050 ####[facility] [address] [place], [address] ALT [Catalytic activity/Vol] 26 U/L Normal <=46 [facility] Comment on above: Order Comment: 208 Performed By: #### L 101.9900, L100.0100, L501.8820, L501.6710, L500.4050 ####[facility] [address] [place], [address] AST [Catalytic activity/Vol] 34 U/L Normal <=37 [facility] Comment on above: Order Comment: 208 Performed By: #### L 101.9900, L100.0100, L501.8820, L501.6710, L500.4050 ####[facility] [address] [place], [address] Bilirubin [Mass/Vol] 0.51 mg/dL Normal 0.00-1.[address] [facility] Comment on above: Order Comment: 208 Performed By: #### L 101.9900, L100.0100, L501.8820, L501.6710, L500.4050 ####[facility] [address] [place], [address] BUN/CRE 38.8 RATIO High 10-20 [facility] Comment on above: Order Comment: 208 Performed By: #### L 101.9900, L100.0100, L501.8820, L501.6710, L500.4050 ####[facility] [address] [place], [address] Calcium [Mass/Vol] 9.8 mg/dL Normal 7.6-11.0 [facility] Comment on above: Order Comment: 208 Performed By: #### L 101.9900, L100.0100, L501.8820, L501.6710, L500.4050 ####[facility] [address] [place], [address] Chloride [Moles/Vol] 101 mmol/L Normal 98-[address] [facility] Comment on above: Order Comment: 208 Performed By: #### L 101.9900, L100.0100, L501.8820, L501.6710, L500.4050 ####[facility] [address] [place], [address] CO2 [Moles/Vol] 27.4 mmol/L Normal 21.0-32.0 [facility] Comment on above: Order Comment: 208 Performed By: #### L 101.9900, L100.0100, L501.8820, L501.6710, L500.4050 ####[facility] [address] [place], [address] Creatinine [Mass/Vol] 0.66 mg/dL Low 0.70-1.20 [facility] Comment on above: Order Comment: 208 Performed By: #### L 101.9900, L100.0100, L501.8820, L501.6710, L500.4050 ####[facility] [address] [place], [address] GAP 11 Normal 5-15 [facility] Comment on above: Order Comment: 208 Performed By: #### L 101.9900, L100.0100, L501.8820, L501.6710, L500.4050 ####[facility] [address] [place], [address] GFR/1.73 sq M.predicted among non-blacks MDRD (S/P/Bld) [Vol rate/Area] 101 mL/min/{1.73_m2} Normal >60 [facility] Comment on above: Order Comment: 208 Result Comment: mL/m in/1.73m2 CKD-EPI Creatinine Equation (2020) Performed By: #### L 101.9900, L100.0100, L501.8820, L501.6710, L500.4050 ####[facility] [address] [place], [address] Globulin (S) [Mass/Vol] 3.5 g/dL Normal 2.2-4.2 [facility] Comment on above: Order Comment: 208 Performed By: #### L 101.9900, L100.0100, L501.8820, L501.6710, L500.4050 ####[facility] [address] [place], [address] Glucose [Mass/Vol] 132 mg/dL High 70-99 [facility] Comment on above: Order Comment: 208 Performed By: #### L 101.9900, L100.0100, L501.8820, L501.6710, L500.4050 ####[facility] [address] [place], [address] Potassium [Moles/Vol] 4.2 mmol/L Normal 3.3-5.1 [facility] Comment on above: Order Comment: 208 Performed By: #### L 101.9900, L100.0100, L501.8820, L501.6710, L500.4050 ####[facility] [address] [place], [address] Sodium [Moles/Vol] 140 mmol/L Normal 133-145 [facility] Comment on above: Order Comment: 208 Performed By: #### L 101.9900, L100.0100, L501.8820, L501.6710, L500.4050 ####[facility] [address] [place], [address] T PROT 6.9 g/dL Normal 5.9-8.4 [facility] Comment on above: Order Comment: 208 Performed By: #### L 101.9900, L100.0100, L501.8820, L501.6710, L500.4050 ####[facility] [address] [place], [address] Urea nitrogen [Mass/Vol] 26 mg/dL High 4-19 [facility] Comment on above: Order Comment: 208 Performed By: #### L 101.9900, L100.0100, L501.8820, L501.6710, L500.4050 ####[facility] [address] [place], [address] Eosinophil percentageOrdered By: Kelli Salgado on 11-07-2024 Eosinophils/100 WBC (Bld) 5.5 % High 0-5 [facility] Erythrocyte Sed Rateon 11-07 SED RATE 41 mm/hr High 0-20 [facility] Comment on above: Order Comment: 208 Performed By: #### L 101.9900, L100.0100, L501.8820, L501.6710, L500.4050 ####[facility] [address] [place], [address] Erythrocyte distribution wid th ratioOrdered By: Kelli Salgado on 11-07-2024 Erythrocyte distribution width (RBC) [Ratio] 14.1 % 11.6-14.6 [facility] Erythrocyte distribution wid th standard deviationOrdered By: Kelli Salgado on 11-07-2024 Erythrocyte distribution width (RBC) [Ratio] 41.3 fl 35.1-43.9 [facility] Erythrocyte sedimentation ra teOrdered By: Kelli Salgado on 11-07-2024 ESR (Bld) [Velocity] 41 mm/h High 0-[address] [facility] Glomerular filtration rate ( GFR) estimation/1.73 sq m using serum, plasma, or whole bOrdered By: Kelli Salgado on 11-07-2024 GFR/1.73 sq M.predicted among non-blacks MDRD (S/P/Bld) [Vol rate/Area] 101 mL/min/{1.73_m2} >60 [facility] Comment on above: mL/min/1.73m2 CKD-EP I Creatinine Equation (2020) Hematocrit Auto (Bld) [Volum e fraction]Ordered By: Kelli Salgado on 11-07-2024 Hematocrit (Bld) [Volume fraction] 36.4 % Low 40-54 [facility] Hemoglobin measurementOrdere d By: Kelli Salgado on 11-07-2024 Hemoglobin (Bld) [Mass/Vol] 11.8 g/dL Low 13.0-16.5 [facility] Immature granulocytes/100 WB C Auto (Bld)Ordered By: Kelli Salgado on 11-07-2024 Immature granulocytes/100 WBC (Bld) 0.300 % 0.0-0.9 [facility] Comment on above: IG% - Immature Granu locytes (promyelocytes, myelocytes and metamyelocytes) > 1% indicates that a LEFT SHIFT is Present. Laboratory - Chemistry and C hemistry - challengeOrdered By: Kelli Salgado on 11-07-2024 AST [Catalytic activity/Vol] 34 U/L <38 [facility] MCV (mean corpuscular volume ) determinationOrdered By: Kelli Salgado on 11-07-2024 MCV (RBC) [Entitic vol] 81.1 fL 80-94 [facility] Mean corpuscular hemoglobin (MCH) determinationOrdered By: Kelli Salgado on 11-07-2024 MCH (RBC) [Entitic mass] 26.3 pg Low 27.0-32.0 [facility] Mean corpuscular hemoglobin concentration (MCHC) determinationOrdered By: Kelli Salgado on 11-07-2024 MCHC (RBC) [Mass/Vol] 32.4 g/dL 32-36 [facility] Mean platelet volume determi nationOrdered By: Kelli Salgado on 11-07-2024 Platelet mean volume (Bld) [Entitic vol] 10.8 fL 6.2-12.0 [facility] Monocyte percentageOrdered B y: Kelli Salgado on 11-07-2024 Monocytes/100 WBC (Bld) 6.9 % 0-10 [facility] Neutrophil percentageOrdered By: Kelli Salgado on 11-07-2024 Neutrophils/100 WBC (Bld) 50.0 % 47-70 [facility] No Panel InformationOrdered By: Kelli Salgado on 11-07-2024 34 U/L <38 [facility] Nucleated red blood cell per centageOrdered By: Kelli Salgado on 11-07-2024 Nucleated RBC/100 WBC (Bld) [Ratio] 0 % 0-5 [facility] Platelet countOrdered By: Chris Salgado on 11-07-2024 Platelets (Bld) [#/Vol] 239 10*3/uL 150-450 [facility] Potassium measurement (mass/ volume)Ordered By: Kelli Salgado on 11-07-2024 Potassium (Unsp spec) [Mass/Vol] 4.2 mmol/L 3.3-5.1 [facility] RBC Auto (Bld) [#/Vol]Ordere d By: Kelli Salgado on 11-07-2024 RBC (Bld) [#/Vol] 4.49 10*6/uL Low 4.6-6.2 [facility] Serum creatinine measurement (mass/volume)Ordered By: Kelli Salgado on 11-07-2024 Creatinine [Mass/Vol] 0.66 mg/dL Low 0.70-1.20 [facility] Serum globulin measurementOr dered By: Kelli Salgado on 11-07-2024 Globulin (S) [Mass/Vol] 3.5 g/dL 2.2-4.2 [facility] Serum glucose measurement (m ass/volume)Ordered By: Kelli Salgado on 11-07-2024 Glucose [Mass/Vol] 132 mg/dL High 70-99 [facility] Serum or plasma C reactive p rotein measurement (mass/volume)Ordered By: Kelli Salgado on 11-07-2024 CRP [Mass/Vol] 10.60 mg/L High 0.0-3.0 [facility] Serum or plasma alanine herrmann otransferase (ALT) measurementOrdered By: Kelli Salgado on 11-07-2024 ALT [Catalytic activity/Vol] 26 U/L <47 [facility] Serum or plasma albumin everardo urement (mass/volume)Ordered By: Kelli Salgado on 11-07-2024 Albumin [Mass/Vol] 3.3 g/dL Low 3.4-4.8 [facility] Serum or plasma albumin/glob ulin mass ratioOrdered By: Kelli Salgado on 11-07-2024 Albumin/Globulin [Mass ratio] 0.9 {ratio} 0.9-2.4 [facility] Serum or plasma alkaline kaiser sphatase measurementOrdered By: Kelli Salgado on 11-07-2024 ALP [Catalytic activity/Vol] 111 U/L 40-129 [facility] Serum or plasma calcium everardo urement (mass/volume)Ordered By: Kelli Salgado on 11-07-2024 Calcium [Mass/Vol] 9.8 mg/dL 7.6-11.0 [facility] Serum or plasma urea nitroge n measurement (mass/volume)Ordered By: Kelli Salgado on 11-07-2024 Urea nitrogen [Mass/Vol] 26 mg/dL High 4-19 [facility] Sodium levelOrdered By: Nilay Salgado on 11-07-2024 Sodium [Moles/Vol] 140 mmol/L 133-145 [facility] Total proteinOrdered By: Tawanda Salgado on 11-07-2024 Protein [Mass/Vol] 6.9 g/dL 5.9-8.4 [facility] Trough vancomycin levelOrder ed By: Kelli Salgado on 11-07-2024 Vancomycin trough [Mass/Vol] 17.1 ug/mL High 5.0-15.0 [facility] Comment on above: Recommended goal tro [...] therapy recommended for serious lifethreatening infections include:- Fasccwjarl-Nyydlmeawuts-Hpgnhpyfm (Ventilator/Healtcare Associated)-Sepsis PLEASE CONTACT PHARMACY SERVICES (#[id number]) FOR INTERPRETATIONOF RESULTS. Vancomycin, Trough Levelon 0 11-07-2024 VANCO, TROUGH 17.1 ug/mL High 5.0-15.0 [facility] Comment on above: Order Comment: Result [...] therapy recommended for serious lifethreatening infections include:- Pcxeuwmyyp-Gtxlrsqobclp-Crzdbvkmn (Ventilator/Healtcare Associated)-SepsisPLEASE CONTACT PHARMACY SERVICES (#[id number]) FOR INTERPRETATIONOF RESULTS. Performed By: #### L 101.9900, L100.0100, L501.8820, L501.6710, L500.4050 ####[facility] [address] [place], [place], [id number] White blood cell (WBC) count Ordered By: Kelli Salgado on 11-07-2024 WBC (Bld) [#/Vol] 6.6 10*3/uL 4.4-11.0 [facility] Trough vancomycin levelOrder ed By: Kelli Salgado on 11-02-2024 Vancomycin trough [Mass/Vol] 14.1 ug/mL 5.0-15.0 [facility] Comment on above: Recommended goal tro [...] therapy recommended for serious lifethreatening infections include:- Cwhfdkcvrm-Qendlpwizuwc-Vsubpthfh (Ventilator/Healtcare Associated)-Sepsis PLEASE CONTACT PHARMACY SERVICES (#[id number]) FOR INTERPRETATIONOF RESULTS. Vancomycin, Trough Levelon 0 11-02-2024 VANCO, TROUGH 14.1 ug/mL Normal 5.0-15.0 [facility] Comment on above: Order Comment: [id number] Result Comment: [place] mmended goal trough [...] therapy recommended for serious lifethreatening infections include:- Gaukvaujfx-Rceobsrvksov-Gavuawzad (Ventilator/Healtcare Associated)-SepsisPLEASE CONTACT PHARMACY SERVICES (#[id number]) FOR INTERPRETATIONOF RESULTS. Performed By: #### L 501.8820 ####[facility] [address] [place], [address] Anion gap in Serum or Plasma Ordered By: Kelli Salgado on 10-31-2024 Anion gap [Moles/Vol] 10 mmol/L 11-01 [facility] BUN/creatinine ratioOrdered By: Kelli Salgado on 10-31-2024 Urea nitrogen/Creatinine [Mass ratio] 34.6 mg/mg High 10-20 [facility] Bilirubin, totalOrdered By: Kelli Salgado on 10-31-2024 Bilirubin [Mass/Vol] 0.72 mg/dL 0.00-1.[address] [facility] CBC-Complete Blood Cnt No Di ffon 10-31-2024 Erythrocyte distribution width (RBC) [Ratio] 14.1 % Normal 11.6-14.6 [facility] Comment on above: Order Comment: 208.1 Performed By: #### L 500.4050, L100.0500, L101.9900, L501.6710 ####[facility] [address] [place], [address] Hematocrit (Bld) [Volume fraction] 36.4 % Low 40-54 [facility] Comment on above: Order Comment: 208.1 Performed By: #### L 500.4050, L100.0500, L101.9900, L501.6710 ####[facility] [address] [place], [address] Hemoglobin (Bld) [Mass/Vol] 11.9 g/dL Low 13.0-16.5 [facility] Comment on above: Order Comment: 208.1 Performed By: #### L 500.4050, L100.0500, L101.9900, L501.6710 ####[facility] [address] [place], [address] MCH (RBC) [Entitic mass] 26.3 pg Low 27.0-32.0 [facility] Comment on above: Order Comment: 208.1 Performed By: #### L 500.4050, L100.0500, L101.9900, L501.6710 ####[facility] [address] [place], [address] MCHC (RBC) [Mass/Vol] 32.7 g/dL Normal 32-36 [facility] Comment on above: Order Comment: 208.1 Performed By: #### L 500.4050, L100.0500, L101.9900, L501.6710 ####[facility] [address] [place], [address] MCV (RBC) [Entitic vol] 80.5 fL Normal 80-94 [facility] Comment on above: Order Comment: 208.1 Performed By: #### L 500.4050, L100.0500, L101.9900, L501.6710 ####[facility] [address] [place], [address] Platelet mean volume (Bld) [Entitic vol] 11.0 fL Normal 6.2-12.0 [facility] Comment on above: Order Comment: .1 Performed By: #### L 500.4050, L100.0500, L101.9900, L501.6710 ####[facility] [address] [place], [address] Platelets (Bld) [#/Vol] 215 10*3/uL Normal 150-450 [facility] Comment on above: Order Comment: .1 Performed By: #### L 500.4050, L100.0500, L101.9900, L501.6710 ####[facility] [address] [place], [address] RBC (Bld) [#/Vol] 4.52 10*6/uL Low 4.6-6.2 [facility] Comment on above: Order Comment: 208.1 Performed By: #### L 500.4050, L100.0500, L101.9900, L501.6710 ####[facility] [address] [place], [address] RDW SD 40.8 fl Normal 35.1-43.9 [facility] Comment on above: Order Comment: 208.1 Performed By: #### L 500.4050, L100.0500, L101.9900, L501.6710 ####[facility] [address] [place], [address] WBC (Bld) [#/Vol] 8.2 10*3/uL Normal 4.4-11.0 [facility] Comment on above: Order Comment: 208.1 Performed By: #### L 500.4050, L100.0500, L101.9900, [id number] ####[facility] [address] [place], [address] CRPon 10-31-2024 C-REACTIVE PROT 17.00 mg/L High 0.0-3.0 [facility] Comment on above: Order Comment: . Performed By: #### L 500.4050, L100.0500, L101.9900, [id number] ####[facility] [address] [place], [address] Carbon dioxide, total [Moles /volume] in Central venous bloodOrdered By: Kelli Salgado on 10-31-2024 CO2 [Moles/Vol] 27.4 mmol/L 21.0-32.0 [facility] Chloride assayOrdered By: Chris Salgado on 10-31-2024 Chloride [Moles/Vol] 99 mmol/L 98-108 [facility] Comprehensive Metabolic Prof ilon 10-31-2024 Albumin [Mass/Vol] 3.2 g/dL Low 3.4-4.8 [facility] Comment on above: Order Comment: 208.1 Performed By: #### L 500.4050, L100.0500, L101.9900, L501.6710 ####[facility] [address] [place], [address] Albumin/Globulin [Mass ratio] 0.9 {ratio} Normal 0.9-2.4 [facility] Comment on above: Order Comment: 208.1 Performed By: #### L 500.4050, L100.0500, L101.9900, [id number] ####[facility] [address] [place], [address] ALK PHOS 113 U/L Normal 40-129 [facility] Comment on above: Order Comment: 208.1 Performed By: #### L 500.4050, L100.0500, L101.9900, [id number] ####[facility] [address] [place], [address] ALT [Catalytic activity/Vol] 16 U/L Normal <=46 [facility] Comment on above: Order Comment: 208.1 Performed By: #### L 500.4050, L100.0500, L101.9900, [id number] ####[facility] [address] [place], [address] AST [Catalytic activity/Vol] 28 U/L Normal <=37 [facility] Comment on above: Order Comment: 208.1 Performed By: #### L 500.4050, L100.0500, L101.9900, [id number] ####[facility] [address] [place], [address] Bilirubin [Mass/Vol] 0.72 mg/dL Normal 0.00-1.[address] [facility] Comment on above: Order Comment: 208.1 Performed By: #### L 500.4050, L100.0500, L101.9900, [id number] ####[facility] [address] [place], [address] BUN/CRE 34.6 RATIO High 10-20 [facility] Comment on above: Order Comment: 208.1 Performed By: #### L 500.4050, L100.0500, L101.9900, [id number] ####[facility] [address] [place], [address] Calcium [Mass/Vol] 9.6 mg/dL Normal 7.6-11.0 [facility] Comment on above: Order Comment: 208.1 Performed By: #### L 500.4050, L100.0500, L101.9900, [id number] ####[facility] [address] [place], [address] Chloride [Moles/Vol] 99 mmol/L Normal 98-[address] [facility] Comment on above: Order Comment: 208.1 Performed By: #### L 500.4050, L100.0500, L101.9900, [id number] ####[facility] [address] [place], [address] CO2 [Moles/Vol] 27.4 mmol/L Normal 21.0-32.0 [facility] Comment on above: Order Comment: 208.1 Performed By: #### L 500.4050, L100.0500, L101.9900, [id number] ####[facility] [address] [place], [address] Creatinine [Mass/Vol] 0.66 mg/dL Low 0.70-1.20 [facility] Comment on above: Order Comment: 208.1 Performed By: #### L 500.4050, L100.0500, L101.9900, [id number] ####[facility] [address] [place], [address] GAP 10 Normal 5-15 [facility] Comment on above: Order Comment: 208.1 Performed By: #### L 500.4050, L100.0500, L101.9900, [id number] ####[facility] [address] [place], [address] GFR/1.73 sq M.predicted among non-blacks MDRD (S/P/Bld) [Vol rate/Area] 101 mL/min/{1.73_m2} Normal >60 [facility] Comment on above: Order Comment: .1 Result Comment: mL/m in/1.73m2 CKD-EPI Creatinine Equation (2020) Performed By: #### L 500.4050, L100.0500, L101.9900, [id number] ####[facility] [address] [place], [address] Globulin (S) [Mass/Vol] 3.5 g/dL Normal 2.2-4.2 [facility] Comment on above: Order Comment: .1 Performed By: #### L 500.4050, L100.0500, L101.9900, [id number] ####[facility] [address] [place], [address] Glucose [Mass/Vol] 166 mg/dL High 70-99 [facility] Comment on above: Order Comment: .1 Performed By: #### L 500.4050, L100.0500, L101.9900, [id number] ####[facility] [address] [place], [address] Potassium [Moles/Vol] 4.3 mmol/L Normal 3.3-5.1 [facility] Comment on above: Order Comment: .1 Performed By: #### L 500.4050, L100.0500, L101.9900, [id number] ####[facility] [address] [place], [address] Sodium [Moles/Vol] 136 mmol/L Normal 133-145 [facility] Comment on above: Order Comment: 208.1 Performed By: #### L 500.4050, L100.0500, L101.9900, [id number] ####[facility] [address] [place], [address] T PROT 6.7 g/dL Normal 5.9-8.4 [facility] Comment on above: Order Comment: 208.1 Performed By: #### L 500.4050, L100.0500, L101.9900, [id number] ####[facility] [address] [place], [address] Urea nitrogen [Mass/Vol] 23 mg/dL High 4-19 [facility] Comment on above: Order Comment: 208.1 Performed By: #### L 500.4050, L100.0500, L101.9900, [id number] ####[facility] [address] [place], [address] Erythrocyte Sed Rateon 10-31 SED RATE 45 mm/hr High 0-20 [facility] Comment on above: Order Comment: 208.1 Performed By: #### L 500.4050, L100.0500, L101.9900, [id number] ####[facility] [address] [place], [address] Erythrocyte distribution wid th ratioOrdered By: Kelli Salgado on 10-31-2024 Erythrocyte distribution width (RBC) [Ratio] 14.1 % 11.6-14.6 [facility] Erythrocyte distribution wid th standard deviationOrdered By: Kelli Salgado on 10-31-2024 Erythrocyte distribution width (RBC) [Ratio] 40.8 fl 35.1-43.9 [facility] Erythrocyte sedimentation ra teOrdered By: Kelli Salgado on 10-31-2024 ESR (Bld) [Velocity] 45 mm/h High 0-[address] [facility] Glomerular filtration rate ( GFR) estimation/1.73 sq m using serum, plasma, or whole bOrdered By: Kelli Salgado on 10-31-2024 GFR/1.73 sq M.predicted among non-blacks MDRD (S/P/Bld) [Vol rate/Area] 101 mL/min/{1.73_m2} >60 [facility] Comment on above: mL/min/1.73m2 CKD-EP I Creatinine Equation (2020) Hematocrit Auto (Bld) [Volum e fraction]Ordered By: Kelli Salgado on 10-31-2024 Hematocrit (Bld) [Volume fraction] 36.4 % Low 40-54 [facility] Hemoglobin measurementOrdere d By: Kelli Salgado on 10-31-2024 Hemoglobin (Bld) [Mass/Vol] 11.9 g/dL Low 13.0-16.5 [facility] Laboratory - Chemistry and C hemistry - challengeOrdered By: Kelli Salgado on 10-31-2024 AST [Catalytic activity/Vol] 28 U/L <38 [facility] MCV (mean corpuscular volume ) determinationOrdered By: Kelli Salgado on 10-31-2024 MCV (RBC) [Entitic vol] 80.5 fL 80-94 [facility] Mean corpuscular hemoglobin (MCH) determinationOrdered By: Kelli Salgado on 10-31-2024 MCH (RBC) [Entitic mass] 26.3 pg Low 27.0-32.0 [facility] Mean corpuscular hemoglobin concentration (MCHC) determinationOrdered By: Kelli Salgado on 10-31-2024 MCHC (RBC) [Mass/Vol] 32.7 g/dL 32-36 [facility] Mean platelet volume determi nationOrdered By: Kelli Salgado on 10-31-2024 Platelet mean volume (Bld) [Entitic vol] 11.0 fL 6.2-12.0 [facility] No Panel InformationOrdered By: Kelli Salgado on 10-31-2024 28 U/L <38 [facility] Platelet countOrdered By: Chris Salgado on 10-31-2024 Platelets (Bld) [#/Vol] 215 10*3/uL 150-450 [facility] Potassium measurement (mass/ volume)Ordered By: Kelli Salgado on 10-31-2024 Potassium (Unsp spec) [Mass/Vol] 4.3 mmol/L 3.3-5.1 [facility] RBC Auto (Bld) [#/Vol]Ordere d By: Kelli Salgado on 10-31-2024 RBC (Bld) [#/Vol] 4.52 10*6/uL Low 4.6-6.2 [facility] Serum creatinine measurement (mass/volume)Ordered By: Kelli Salgado on 10-31-2024 Creatinine [Mass/Vol] 0.66 mg/dL Low 0.70-1.20 [facility] Serum globulin measurementOr dered By: Kelli Salgado on 10-31-2024 Globulin (S) [Mass/Vol] 3.5 g/dL 2.2-4.2 [facility] Serum glucose measurement (m ass/volume)Ordered By: Kelli Salgado on 10-31-2024 Glucose [Mass/Vol] 166 mg/dL High 70-99 [facility] Serum or plasma C reactive p rotein measurement (mass/volume)Ordered By: Kelli Salgado on 10-31-2024 CRP [Mass/Vol] 17.00 mg/L High 0.0-3.0 [facility] Serum or plasma alanine herrmann otransferase (ALT) measurementOrdered By: Kelli Salgado on 10-31-2024 ALT [Catalytic activity/Vol] 16 U/L <47 [facility] Serum or plasma albumin everardo urement (mass/volume)Ordered By: Kelli Salgado on 10-31-2024 Albumin [Mass/Vol] 3.2 g/dL Low 3.4-4.8 [facility] Serum or plasma albumin/glob ulin mass ratioOrdered By: Kelli Salgado on 10-31-2024 Albumin/Globulin [Mass ratio] 0.9 {ratio} 0.9-2.4 [facility] Serum or plasma alkaline kaiser sphatase measurementOrdered By: Kelli Salgado on 10-31-2024 ALP [Catalytic activity/Vol] 113 U/L 40-129 [facility] Serum or plasma calcium everardo urement (mass/volume)Ordered By: Kelli Salgado on 10-31-2024 Calcium [Mass/Vol] 9.6 mg/dL 7.6-11.0 [facility] Serum or plasma urea nitroge n measurement (mass/volume)Ordered By: Kelli Salgado on 10-31-2024 Urea nitrogen [Mass/Vol] 23 mg/dL High 4-19 [facility] Sodium levelOrdered By: Nilay Salgado on 10-31-2024 Sodium [Moles/Vol] 136 mmol/L 133-145 [facility] Total proteinOrdered By: Tawanda Salgado on 10-31-2024 Protein [Mass/Vol] 6.7 g/dL 5.9-8.4 [facility] White blood cell (WBC) count Ordered By: Kelli Maurodayjuarez on 10-31-2024 WBC (Bld) [#/Vol] 8.2 10*3/uL 4.4-11.0 [facility] GLUCOSE POCon 10-30-2024 Glucose [Mass/Vol] 170 mg/dL 70 - 179 mg/dL [facility] POC Sample Type CAPBL [facility] CBC,PLATELETSon 10-29-2024 Erythrocyte distribution width (RBC) [Ratio] 13.9 % 10.9 - 14.3 % [facility] Hematocrit (Bld) [Volume fraction] 37.1 % Low 39.6 - 48.8 % [facility] Hemoglobin (Bld) [Mass/Vol] 11.8 g/dL Low 13.4 - 16.8 g/dL [facility] Interpretation and review of laboratory results Abnormal [facility] MCH (RBC) [Entitic mass] 25.8 pg Low 26. 1 - 33.3 pg [facility] MCHC (RBC) [Mass/Vol] 31.8 g/dL Low 31.9 - 36.5 g/dL [facility] MCV (RBC) [Entitic vol] 81.2 fL 79.0 - 94.5 fL [facility] Platelet mean volume (Bld) [Entitic vol] 10.9 fL 8.7 - 12.3 fL [facility] Platelets (Bld) [#/Vol] 216 10*3/uL 146 - 337 K/uL [facility] RBC (Bld) [#/Vol] 4.57 10*6/uL [facility] WBC (Bld) [#/Vol] 8 10*3/uL 3.73 - 10. 10 K/uL [facility] Hematocrit (Bld) [Volume fraction] 37.1 % Low 39.6-48.8 [facility] Comment on above: Performed By: #### C HM7 #### [facility] (DEFAULT) [address] [address] Hemoglobin (Bld) [Mass/Vol] 11.8 g/dL Low 13.4-16.8 [facility] Comment on above: Performed By: #### C HM7 #### [facility] (DEFAULT) [address] [address] MCV (RBC) [Entitic vol] 81.2 fL Normal 79.0-94.[address] [facility] Comment on above: Performed By: #### C HM7 #### [facility] (DEFAULT) [address] [address] Mean Cell Hgb 25.8 pg Low 26.1-33.3 [facility] Comment on above: Performed By: #### C HM7 #### [facility] (DEFAULT) [address] [address] Mean Cell Hgb Conc 31.8 g/dL Low 31.9-36.5 [facility] Comment on above: Performed By: #### C HM7 #### [facility] (DEFAULT) [address] [address] Platelet mean volume (Bld) [Entitic vol] 10.9 fL Normal 8.7-12.3 [facility] Comment on above: Performed By: #### C HM7 #### [facility] (DEFAULT) [address] [address] Platelets (Bld) [#/Vol] 216 10*3/uL Normal 146-337 [facility] Comment on above: Performed By: #### C HM7 #### [facility] (DEFAULT) [address] [place] [address] RBC (Bld) [#/Vol] 4.57 10*6/uL Normal 4.38-5.83 [facility] Comment on above: Performed By: #### C HM7 #### [facility] (DEFAULT) [address] [place] [address] RBC Distribution 13.9 % Normal 10.9-14.3 [facility] Comment on above: Performed By: #### C HM7 #### [facility] (DEFAULT) [address] [place] [address] WBC (Bld) [#/Vol] 8.00 10*3/uL Normal 3.73-10.10 [facility] Comment on above: Performed By: #### C HM7 #### [facility] (DEFAULT) [address] [place] [address] CHEM 7 (LYTES,BUN,CREA,GLUC) on 10-29-2024 Anion gap [Moles/Vol] 11 mmol/L 7 - 17 mmol/L [facility] Chloride [Moles/Vol] 99 mmol/L 98 - 10 8 mmol/L [facility] CO2 [Moles/Vol] 32 mmol/L High 21 - 31 mmol/L [facility] Creatinine [Mass/Vol] 0.58 mg/dL Low 0.70 - 1.30 mg/dL [facility] eGFR, CKD-EPI, Male - PINF [facility] Glucose [Mass/Vol] 152 mg/dL 70 - 179 mg/dL [facility] Interpretation and review of laboratory results Abnormal [facility] Osmolality Calc [Osmolality] 297 [facility] Potassium [Moles/Vol] 3.9 mmol/L 3.5 - 5.0 mmol/L [facility] Sodium [Moles/Vol] 138 mmol/L 135 - 145 mmol/L [facility] Urea nitrogen [Mass/Vol] 26 mg/dL High 7 - 25 mg/d L [facility] Urea nitrogen/Creatinine [Mass ratio] 45 mg/mg [facility] Anion gap [Moles/Vol] 11 mmol/L Normal 7-17 [facility] Comment on above: Performed By: #### X M #### [facility] (DEFAULT) [address] [place] [address] Chloride [Moles/Vol] 99 mmol/L Normal 98-108 [facility] Comment on above: Performed By: #### X M #### [facility] (DEFAULT) [address] [place] [address] CO2 [Moles/Vol] 32 mmol/L High 21-31 [facility] Comment on above: Performed By: #### X M #### [facility] (DEFAULT) [address] [place] [address] Creatinine [Mass/Vol] 0.58 mg/dL Low 0.70-1.30 [facility] Comment on above: Performed By: #### X M #### [facility] (DEFAULT) [address] [place] [address] eGFR, CKD-EPI, Male > Normal >=60 [facility] Comment on above: Result Comment: Repo rted eGFR is based on the CKD-EPI 2020 equation using creatinine, age, and sex. Performed By: #### X M #### [facility] (DEFAULT) [address] [place] [address] Glucose [Mass/Vol] 152 mg/dL Normal Nonfastin -179 mg/dL; Fastin-99 [facility] Comment on above: Performed By: #### X M #### [facility] (DEFAULT) [address] [place] [address] Osmolality [Osmolality] 297 mosm/kg Normal 278-305 [facility] Comment on above: Performed By: #### X M #### [facility] (DEFAULT) [address] [place] [address] Potassium [Moles/Vol] 3.9 mmol/L Normal 3.5-5.0 [facility] Comment on above: Performed By: #### X M #### [facility] (DEFAULT) [address] [place] [address] Sodium [Moles/Vol] 138 mmol/L Normal 135-145 [facility] Comment on above: Performed By: #### X M #### [facility] (DEFAULT) [address] [place] [address] Urea nitrogen [Mass/Vol] 26 mg/dL High 7-25 [facility] Comment on above: Performed By: #### X M #### [facility] (DEFAULT) [address] [place] [address] Urea nitrogen/Creatinine [Mass ratio] 45 mg/mg Normal [facility] Comment on above: Performed By: #### X M #### [facility] (DEFAULT) [address] [address] GLUCOSE POCon 10-29-2024 Glucose [Mass/Vol] 182 mg/dL High 70 - 179 mg/dL [facility] Interpretation and review of laboratory results Abnormal [facility] POC Sample Type CAPBL [facility] Glucose [Mass/Vol] 191 mg/dL High 70 - 179 mg/dL [facility] Interpretation and review of laboratory results Abnormal [facility] POC Sample Type CAPBL [facility] Glucose [Mass/Vol] 214 mg/dL High 70 - 179 mg/dL [facility] Interpretation and review of laboratory results Abnormal [facility] POC Sample Type CAPBL [facility] Glucose [Mass/Vol] 145 mg/dL 70 - 179 mg/dL [facility] POC Sample Type CAPBL [facility] GLUCOSE POCon 10-28-2024 Glucose [Mass/Vol] 168 mg/dL 70 - 179 mg/dL [facility] Glucose [Mass/Vol] 165 mg/dL 70 - 179 mg/dL [facility] POC Sample Type CAPBL [facility] Glucose [Mass/Vol] 218 mg/dL High 70 - 179 mg/dL [facility] Interpretation and review of laboratory results Abnormal [facility] Glucose [Mass/Vol] 179 mg/dL 70 - 179 mg/dL [facility] POC Sample [facility] GLUCOSE POCon 10-27-2024 Glucose [Mass/Vol] 207 mg/dL High 70 - 179 mg/dL [facility] Interpretation and review of laboratory results Abnormal [facility]OC [facility] Glucose [Mass/Vol] 164 mg/dL 70 - 179 mg/dL [facility] POC Sample Type [facility] Glucose [Mass/Vol] 208 mg/dL High 70 - 179 mg/dL [facility] Interpretation and review of laboratory results Abnormal [facility] POC [facility] Glucose [Mass/Vol] 193 mg/dL High 70 - 179 mg/dL [facility] Interpretation and review of laboratory results Abnormal [facility] POC Sample Type CAPBL [facility] VANCOMYCIN LEVEL, TROUGH (NE E DRUG LEVEL)on 10-27-2024 Interpretation and review of laboratory results Normal [facility] Vancomycin trough [Mass/Vol] 15.6 ug/mL [facility] Vancomycin, Trough 15.6 mcg/mL Normal Therapeut ic Range: 10.0-20.0 mcg/mL [facility] Comment on above: Order Comment: Pleas e draw level at specified interval PRIOR to next dose. Performed By: #### V ANCTR #### [facility] (DEFAULT) [address] [place] [address] CBC,PLATELETSon 10-26-2024 Erythrocyte distribution width (RBC) [Ratio] 13.5 % 10.9 - 14.3 % [facility] Hematocrit (Bld) [Volume fraction] 37.7 % Low 39.6 - 48.8 % [facility] Hemoglobin (Bld) [Mass/Vol] 12.5 g/dL Low 13.4 - 16.8 g/dL [facility] Interpretation and review of laboratory results Abnormal [facility] MCH (RBC) [Entitic mass] 26.8 pg 26. 1 - 33.3 pg [facility] MCHC (RBC) [Mass/Vol] 33.2 g/dL 31.9 - 36.5 g/dL [facility] MCV (RBC) [Entitic vol] 80.7 fL 79.0 - 94.5 fL [facility] Platelet mean volume (Bld) [Entitic vol] 10.3 fL 8.7 - 12.3 fL [facility] Platelets (Bld) [#/Vol] 229 10*3/uL 146 - 337 K/uL [facility] RBC (Bld) [#/Vol] 4.67 10*6/uL [facility] WBC (Bld) [#/Vol] 8.37 10*3/uL 3.73 - 10. 10 K/uL [facility] Hematocrit (Bld) [Volume fraction] 37.7 % Low 39.6-48.8 [facility] Comment on above: Performed By: #### X M #### [facility] (DEFAULT) [address] [place] [address] Hemoglobin (Bld) [Mass/Vol] 12.5 g/dL Low 13.4-16.8 [facility] Comment on above: Performed By: #### X M #### [facility] (DEFAULT) [address] [place] [address] MCV (RBC) [Entitic vol] 80.7 fL Normal 79.0-94.[address] [facility] Comment on above: Performed By: #### X M #### [facility] (DEFAULT) [address] [place] [address] Mean Cell Hgb 26.8 pg Normal 26.1-33.3 [facility] Comment on above: Performed By: #### X M #### [facility] (DEFAULT) [address] [place] [address] Mean Cell Hgb Conc 33.2 g/dL Normal 31.9-36.5 [facility] Comment on above: Performed By: #### X M #### [facility] (DEFAULT) [address] [place] [address] Platelet mean volume (Bld) [Entitic vol] 10.3 fL Normal 8.7-12.3 [facility] Comment on above: Performed By: #### X M #### [facility] (DEFAULT) [address] [place] [address] Platelets (Bld) [#/Vol] 229 10*3/uL Normal 146-337 [facility] Comment on above: Performed By: #### X M #### [facility] (DEFAULT) [address] [place] [address] RBC (Bld) [#/Vol] 4.67 10*6/uL Normal 4.38-5.83 [facility] Comment on above: Performed By: #### X M #### [facility] (DEFAULT) [address] [place] [address], [place] [address] RBC Distribution 13.5 % Normal 10.9-14.3 [facility] Comment on above: Performed By: #### X M #### [facility] (DEFAULT) [address] [place] [address] WBC (Bld) [#/Vol] 8.37 10*3/uL Normal 3.73-10.10 [facility] Comment on above: Performed By: #### X M #### [facility] (DEFAULT) [address] [place] [address] CHEM 7 (LYTES,BUN,CREA,GLUC) on 10-26-2024 Anion gap [Moles/Vol] 11 mmol/L 7 - 17 mmol/L [facility] Chloride [Moles/Vol] 99 mmol/L 98 - 10 8 mmol/L [facility] CO2 [Moles/Vol] 30 mmol/L 21 - 31 mmol/L [facility] Creatinine [Mass/Vol] 0.63 mg/dL Low 0.70 - 1.30 mg/dL [facility] eGFR, CKD-EPI, Male - PINF [facility] Glucose [Mass/Vol] 189 mg/dL High 70 - 179 mg/dL [facility] Interpretation and review of laboratory results Abnormal [facility] Osmolality Calc [Osmolality] 296 [facility] Potassium [Moles/Vol] 4.3 mmol/L 3.5 - 5.0 mmol/L [facility] Sodium [Moles/Vol] 136 mmol/L 135 - 145 mmol/L [facility] Urea nitrogen [Mass/Vol] 24 mg/dL 7 - 25 mg/d L [facility] Urea nitrogen/Creatinine [Mass ratio] 38 mg/mg [facility] Anion gap [Moles/Vol] 11 mmol/L Normal 7-17 [facility] Comment on above: Performed By: #### C HM7 #### [facility] (DEFAULT) [address] [place] [address] Chloride [Moles/Vol] 99 mmol/L Normal 98-108 [facility] Comment on above: Performed By: #### C HM7 #### [facility] (DEFAULT) [address] [place] [address] CO2 [Moles/Vol] 30 mmol/L Normal 21-31 [facility] Comment on above: Performed By: #### C HM7 #### [facility] (DEFAULT) [address] [place] [address] Creatinine [Mass/Vol] 0.63 mg/dL Low 0.70-1.30 [facility] Comment on above: Performed By: #### C HM7 #### [facility] (DEFAULT) [address] [place] [address] eGFR, CKD-EPI, Male > Normal >=60 [facility] Comment on above: Result Comment: Repo rted eGFR is based on the CKD-EPI 2020 equation using creatinine, age, and sex. Performed By: #### C HM7 #### [facility] (DEFAULT) [address] [place] [address] Glucose [Mass/Vol] 189 mg/dL High Nonfastin -179 mg/dL; Fastin-99 [facility] Comment on above: Performed By: #### C HM7 #### [facility] (DEFAULT) [address] [place] [address] Osmolality [Osmolality] 296 mosm/kg Normal 278-305 [facility] Comment on above: Performed By: #### C HM7 #### [facility] (DEFAULT) [address] [place] [address] Potassium [Moles/Vol] 4.3 mmol/L Normal 3.5-5.0 [facility] Comment on above: Performed By: #### C HM7 #### [facility] (DEFAULT) [address] [place] [address] Sodium [Moles/Vol] 136 mmol/L Normal 135-145 [facility] Comment on above: Performed By: #### C HM7 #### [facility] (DEFAULT) [address] [place] [address] Urea nitrogen [Mass/Vol] 24 mg/dL Normal 7-25 [facility] Comment on above: Performed By: #### C HM7 #### [facility] (DEFAULT) [address] [place] [address] Urea nitrogen/Creatinine [Mass ratio] 38 mg/mg Normal [facility] Comment on above: Performed By: #### C HM7 #### [facility] (DEFAULT) [address] [place] [address] CT HEAD WITHOUT CONTRASTon 0 10-26-2024 CT [...] the associated mass effect appear unchanged. Normal [facility] CT Head WO contraston 2024 RADIOLOGY RADIOLOGY [facility] Radiology Study observation (narrative) [facility] CT Head WO contrastOrdered B y: Jeremias Christensen on 10-26-2024 [facility] Work Phone: ECGOrdered By: Tressa Cruz ba on 10-26-2024 [facility] Work Phone: GLUCOSE POCon 10-26-2024 Glucose [Mass/Vol] 180 mg/dL High 70 - 179 mg/dL [facility] Interpretation and review of laboratory results Abnormal [facility] POC Sample Type CAPBL [facility] Glucose [Mass/Vol] 167 mg/dL 70 - 179 mg/dL [facility] POC Sample Type CAPBL [facility] Glucose [Mass/Vol] 223 mg/dL High 70 - 179 mg/dL [facility] Interpretation and review of laboratory results Abnormal [facility] No Panel InformationOrdered By: Unassigned Pacs on 10-26-2024 [facility] Work Phone: CBC,PLATELETSon 10-25-2024 Erythrocyte distribution width (RBC) [Ratio] 13.4 % 10.9 - 14.3 % [facility] Hematocrit (Bld) [Volume fraction] 37.7 % Low 39.6 - 48.8 % [facility] Hemoglobin (Bld) [Mass/Vol] 12.5 g/dL Low 13.4 - 16.8 g/dL [facility] Interpretation and review of laboratory results Abnormal [facility] MCH (RBC) [Entitic mass] 26.4 pg 26. 1 - 33.3 pg [facility] MCHC (RBC) [Mass/Vol] 33.2 g/dL 31.9 - 36.5 g/dL [facility] MCV (RBC) [Entitic vol] 79.7 fL 79.0 - 94.5 fL [facility] Platelet mean volume (Bld) [Entitic vol] 9.7 fL 8.7 - 12.3 fL [facility] Platelets (Bld) [#/Vol] 244 10*3/uL 146 - 337 K/uL [facility] RBC (Bld) [#/Vol] 4.73 10*6/uL [facility] WBC (Bld) [#/Vol] 8.14 10*3/uL 3.73 - 10. 10 K/uL [facility] Hematocrit (Bld) [Volume fraction] 37.7 % Low 39.6-48.8 [facility] Comment on above: Performed By: #### V ANCTR #### [facility] (DEFAULT) [address] [address] Hemoglobin (Bld) [Mass/Vol] 12.5 g/dL Low 13.4-16.8 [facility] Comment on above: Performed By: #### V ANCTR #### [facility] (DEFAULT) [address] [address] MCV (RBC) [Entitic vol] 79.7 fL Normal 79.0-94.5 O [facility] Comment on above: Performed By: #### V ANCTR #### [facility] (DEFAULT) [address] [address] Mean Cell Hgb 26.4 pg Normal 26.1-33.3 [facility] Comment on above: Performed By: #### V ANCTR #### [facility] (DEFAULT) [address] [address] Mean Cell Hgb Conc 33.2 g/dL Normal 31.9-36.5 [facility] Comment on above: Performed By: #### V ANCTR #### [facility] (DEFAULT) [address] [address] Platelet mean volume (Bld) [Entitic vol] 9.7 fL Normal 8.7-12.3 [facility] Comment on above: Performed By: #### V ANCTR #### [facility] (DEFAULT) [address] [place] [address] Platelets (Bld) [#/Vol] 244 10*3/uL Normal 146-337 [facility] Comment on above: Performed By: #### V ANCTR #### [facility] (DEFAULT) [address] [place] [address] RBC (Bld) [#/Vol] 4.73 10*6/uL Normal 4.38-5.83 [facility] Comment on above: Performed By: #### V ANCTR #### [facility] (DEFAULT) [address] [place] [address] RBC Distribution 13.4 % Normal 10.9-14.3 [facility] Comment on above: Performed By: #### V ANCTR #### [facility] (DEFAULT) [address] [place] [address] WBC (Bld) [#/Vol] 8.14 10*3/uL Normal 3.73-10.10 [facility] Comment on above: Performed By: #### V ANCTR #### [facility] (DEFAULT) [address] [place] [address] CHEM 7 (LYTES,BUN,CREA,GLUC) on 10-25-2024 Anion gap [Moles/Vol] 12 mmol/L 7 - 17 mmol/L [facility] Chloride [Moles/Vol] 97 mmol/L Low 98 - 10 8 mmol/L [facility] CO2 [Moles/Vol] 31 mmol/L 21 - 31 mmol/L [facility] Creatinine [Mass/Vol] 0.61 mg/dL Low 0.70 - 1.30 mg/dL [facility] eGFR, CKD-EPI, Male - PINF [facility] Glucose [Mass/Vol] 150 mg/dL 70 - 179 mg/dL [facility] Interpretation and review of laboratory results Abnormal [facility] Osmolality Calc [Osmolality] 291 [facility] Potassium [Moles/Vol] 4 mmol/L 3.5 - 5.0 mmol/L [facility] Sodium [Moles/Vol] 136 mmol/L 135 - 145 mmol/L [facility] Urea nitrogen [Mass/Vol] 20 mg/dL 7 - 25 mg/d L [facility] Urea nitrogen/Creatinine [Mass ratio] 33 mg/mg [facility] Anion gap [Moles/Vol] 12 mmol/L Normal 7-17 [facility] Comment on above: Performed By: #### X M #### [facility] (DEFAULT) [address] [place] [address] Chloride [Moles/Vol] 97 mmol/L Low 98-108 [facility] Comment on above: Performed By: #### X M #### [facility] (DEFAULT) [address] [place] [address] CO2 [Moles/Vol] 31 mmol/L Normal 21-31 [facility] Comment on above: Performed By: #### X M #### [facility] (DEFAULT) [address] [place] [address] Creatinine [Mass/Vol] 0.61 mg/dL Low 0.70-1.30 [facility] Comment on above: Performed By: #### X M #### [facility] (DEFAULT) [address] [place] [address] eGFR, CKD-EPI, Male > Normal >=60 [facility] Comment on above: Result Comment: Repo rted eGFR is based on the CKD-EPI 2020 equation using creatinine, age, and sex. Performed By: #### X M #### [facility] (DEFAULT) [address] [place] [address] Glucose [Mass/Vol] 150 mg/dL Normal Nonfastin -179 mg/dL; Fastin-99 [facility] Comment on above: Performed By: #### X M #### [facility] (DEFAULT) [address] [place] [address] Osmolality [Osmolality] 291 mosm/kg Normal 278-305 [facility] Comment on above: Performed By: #### X M #### [facility] (DEFAULT) [address] [place] [address] Potassium [Moles/Vol] 4.0 mmol/L Normal 3.5-5.0 [facility] Comment on above: Performed By: #### X M #### [facility] (DEFAULT) [address] [place] [address] Sodium [Moles/Vol] 136 mmol/L Normal 135-145 [facility] Comment on above: Performed By: #### X M #### [facility] (DEFAULT) [address] [place] [address] Urea nitrogen [Mass/Vol] 20 mg/dL Normal 7-25 [facility] Comment on above: Performed By: #### X M #### [facility] (DEFAULT) [address] [place] [address] Urea nitrogen/Creatinine [Mass ratio] 33 mg/mg Normal [facility] Comment on above: Performed By: #### X M #### [facility] (DEFAULT) [address] [place] [address] GLUCOSE POCon 10-25-2024 Glucose [Mass/Vol] 181 mg/dL High 70 - 179 mg/dL [facility] Interpretation and review of laboratory results Abnormal [facility] POC Sample Type CAPBL [facility] Glucose [Mass/Vol] 224 mg/dL High 70 - 179 mg/dL [facility] Interpretation and review of laboratory results Abnormal [facility] POC Sample Type CAPBL [facility] Glucose [Mass/Vol] 202 mg/dL High 70 - 179 mg/dL [facility] Interpretation and review of laboratory results Abnormal [facility] POC Sample Type CAPBL [facility] Glucose [Mass/Vol] 207 mg/dL High 70 - 179 mg/dL [facility] Interpretation and review of laboratory results Abnormal [facility] POC Sample Type CAPBL [facility] Glucose [Mass/Vol] 147 mg/dL 70 - 179 mg/dL [facility] POC Sample Type CAPBL [facility] CBC,PLATELETSon 10-24-2024 Erythrocyte distribution width (RBC) [Ratio] 13.2 % 10.9 - 14.3 % [facility] Hematocrit (Bld) [Volume fraction] 38.2 % Low 39.6 - 48.8 % [facility] Hemoglobin (Bld) [Mass/Vol] 12.4 g/dL Low 13.4 - 16.8 g/dL [facility] Interpretation and review of laboratory results Abnormal [facility] MCH (RBC) [Entitic mass] 25.6 pg Low 26. 1 - 33.3 pg [facility] MCHC (RBC) [Mass/Vol] 32.5 g/dL 31.9 - 36.5 g/dL [facility] MCV (RBC) [Entitic vol] 78.8 fL Low 79.0 - 94.5 fL [facility] Platelet mean volume (Bld) [Entitic vol] 10 fL 8.7 - 12.3 fL [facility] Platelets (Bld) [#/Vol] 274 10*3/uL 146 - 337 K/uL [facility] RBC (Bld) [#/Vol] 4.85 10*6/uL [facility] WBC (Bld) [#/Vol] 8.14 10*3/uL 3.73 - 10. 10 K/uL [facility] Hematocrit (Bld) [Volume fraction] 38.2 % Low 39.6-48.8 [facility] Comment on above: Performed By: #### V ANCTR #### [facility] (DEFAULT) [address] [address] Hemoglobin (Bld) [Mass/Vol] 12.4 g/dL Low 13.4-16.8 [facility] Comment on above: Performed By: #### V ANCTR #### [facility] (DEFAULT) [address] [address] MCV (RBC) [Entitic vol] 78.8 fL Low 79.0-94.5 O [facility] Comment on above: Performed By: #### V ANCTR #### [facility] (DEFAULT) [address] [address] Mean Cell Hgb 25.6 pg Low 26.1-33.3 [facility] Comment on above: Performed By: #### V ANCTR #### [facility] (DEFAULT) [address] [address] Mean Cell Hgb Conc 32.5 g/dL Normal 31.9-36.5 [facility] Comment on above: Performed By: #### V ANCTR #### [facility] (DEFAULT) [address] [address] Platelet mean volume (Bld) [Entitic vol] 10.0 fL Normal 8.7-12.3 [facility] Comment on above: Performed By: #### V ANCTR #### [facility] (DEFAULT) [address] [address] Platelets (Bld) [#/Vol] 274 10*3/uL Normal 146-337 [facility] Comment on above: Performed By: #### V ANCTR #### [facility] (DEFAULT) [address] [address] RBC (Bld) [#/Vol] 4.85 10*6/uL Normal 4.38-5.83 [facility] Comment on above: Performed By: #### V ANCTR #### [facility] (DEFAULT) [address] [place] [address] RBC Distribution 13.2 % Normal 10.9-14.3 [facility] Comment on above: Performed By: #### V ANCTR #### [facility] (DEFAULT) [address] [place] [address] WBC (Bld) [#/Vol] 8.14 10*3/uL Normal 3.73-10.10 [facility] Comment on above: Performed By: #### V ANCTR #### [facility] (DEFAULT) [address] [place] [address] CHEM 7 (LYTES,BUN,CREA,GLUC) on 10-24-2024 Anion gap [Moles/Vol] 11 mmol/L 7 - 17 mmol/L [facility] Chloride [Moles/Vol] 98 mmol/L 98 - 10 8 mmol/L [facility] CO2 [Moles/Vol] 33 mmol/L High 21 - 31 mmol/L [facility] Creatinine [Mass/Vol] 0.57 mg/dL Low 0.70 - 1.30 mg/dL [facility] eGFR, CKD-EPI, Male - PINF [facility] Glucose [Mass/Vol] 160 mg/dL 70 - 179 mg/dL [facility] Interpretation and review of laboratory results Abnormal [facility] Osmolality Calc [Osmolality] 295 [facility] Potassium [Moles/Vol] 4.2 mmol/L 3.5 - 5.0 mmol/L [facility] Sodium [Moles/Vol] 138 mmol/L 135 - 145 mmol/L [facility] Urea nitrogen [Mass/Vol] 18 mg/dL 7 - 25 mg/d L [facility] Urea nitrogen/Creatinine [Mass ratio] 32 mg/mg [facility] Anion gap [Moles/Vol] 11 mmol/L Normal 7-17 [facility] Comment on above: Performed By: #### T YPEC #### [facility] (DEFAULT) [address] [place] [address] Chloride [Moles/Vol] 98 mmol/L Normal 98-108 [facility] Comment on above: Performed By: #### T YPEC #### [facility] (DEFAULT) [address] [address] CO2 [Moles/Vol] 33 mmol/L High 21-31 [facility] Comment on above: Performed By: #### T YPEC #### [facility] (DEFAULT) [address] [address] Creatinine [Mass/Vol] 0.57 mg/dL Low 0.70-1.30 [facility] Comment on above: Performed By: #### T YPEC #### [facility] (DEFAULT) [address] [address] eGFR, CKD-EPI, Male > Normal >=60 [facility] Comment on above: Result Comment: Repo rted eGFR is based on the CKD-EPI 2020 equation using creatinine, age, and sex. Performed By: #### T YPEC #### [facility] (DEFAULT) [address] [address] Glucose [Mass/Vol] 160 mg/dL Normal Nonfastin -179 mg/dL; Fastin-99 [facility] Comment on above: Performed By: #### T YPEC #### [facility] (DEFAULT) [address] [address] Osmolality [Osmolality] 295 mosm/kg Normal 278-305 [facility] Comment on above: Performed By: #### T YPEC #### [facility] (DEFAULT) [address] [address] Potassium [Moles/Vol] 4.2 mmol/L Normal 3.5-5.0 [facility] Comment on above: Performed By: #### T YPEC #### [facility] (DEFAULT) [address] [place] [address] Sodium [Moles/Vol] 138 mmol/L Normal 135-145 [facility] Comment on above: Performed By: #### T YPEC #### [facility] (DEFAULT) [address] [place] [address] Urea nitrogen [Mass/Vol] 18 mg/dL Normal 7-25 [facility] Comment on above: Performed By: #### T YPEC #### [facility] (DEFAULT) [address] [place] [address] Urea nitrogen/Creatinine [Mass ratio] 32 mg/mg Normal [facility] Comment on above: Performed By: #### T YPEC #### [facility] (DEFAULT) [address] [place] [address] GLUCOSE POCon 10-24-2024 Glucose [Mass/Vol] 152 mg/dL 70 - 179 mg/dL [facility] POC Sample Type CAPBL [facility] Glucose [Mass/Vol] 173 mg/dL 70 - 179 mg/dL [facility] POC Sample Type CAPBL [facility] Glucose [Mass/Vol] 210 mg/dL High 70 - 179 mg/dL [facility] Interpretation and review of laboratory results Abnormal [facility] POC Sample Type CAPBL [facility] Glucose [Mass/Vol] 168 mg/dL 70 - 179 mg/dL [facility] POC Sample Type CAPBL [facility] HIGH SENSITIVITY TROPONIN I - SINGLE ORDERon 10-24-2024 Troponin I.cardiac High sensitivity method [Mass/Vol] 4 ng/L NINF - 53 ng/L [facility] hs-Troponin I 4 ng/L Normal <53 [facility] Comment on above: Order Comment: Acute Coronary Syndrome (ACS): Initial Evaluation and Management:[email or web address] Performed By: #### T YPEC #### [facility] (DEFAULT) [address] [place] [address] NT-PRO B-TYPE NATRIURETIC PE PTIDEon 10-24-2024 Natriuretic peptide.B prohormone N-Terminal IA [Mass/Vol] 242 pg/mL NINF - 540 pg/mL [facility] Natriuretic peptide B (Bld) [Mass/Vol] 242 pg/mL Normal <=540 [facility] Comment on above: Performed By: #### Y NTBNP #### [facility] (DEFAULT) [address] [place] [address] No Panel Informationon 10-24 Interpretation and review of laboratory results Normal [facility] Portable XR Chest Viewson RADIOLOGY RADIOLOGY [facility] Radiology Study observation (narrative) [facility] XR CHEST 1 VIEW PORTABLEon 0 [...] have reviewed and approved this report. Normal [facility] CBC,PLATELETSon 10-23-2024 Erythrocyte distribution width (RBC) [Ratio] 13.3 % 10.9 - 14.3 % [facility] Hematocrit (Bld) [Volume fraction] 39.2 % Low 39.6 - 48.8 % [facility] Hemoglobin (Bld) [Mass/Vol] 13.1 g/dL Low 13.4 - 16.8 g/dL [facility] Interpretation and review of laboratory results Abnormal [facility] MCH (RBC) [Entitic mass] 26.4 pg 26. 1 - 33.3 pg [facility] MCHC (RBC) [Mass/Vol] 33.4 g/dL 31.9 - 36.5 g/dL [facility] MCV (RBC) [Entitic vol] 79 fL 79.0 - 94.5 fL [facility] Platelet mean volume (Bld) [Entitic vol] 9.4 fL 8.7 - 12.3 fL [facility] Platelets (Bld) [#/Vol] 250 10*3/uL 146 - 337 K/uL [facility] RBC (Bld) [#/Vol] 4.96 10*6/uL [facility] WBC (Bld) [#/Vol] 7.42 10*3/uL 3.73 - 10. 10 K/uL [facility] Hematocrit (Bld) [Volume fraction] 39.2 % Low 39.6-48.8 [facility] Comment on above: Performed By: #### H MUSCOGEE #### [facility] (DEFAULT) [address] [address] Hemoglobin (Bld) [Mass/Vol] 13.1 g/dL Low 13.4-16.8 [facility] Comment on above: Performed By: #### H MUSCO[place]EE #### [facility] (DEFAULT) [address] [place] [address] MCV (RBC) [Entitic vol] 79.0 fL Normal 79.0-94.5 [facility] Comment on above: Performed By: #### H MUSCOGEE #### [facility] (DEFAULT) [address] [place] [address] Mean Cell Hgb 26.4 pg Normal 26.1-33.3 [facility] Comment on above: Performed By: #### H [facility] #### [facility] (DEFAULT) [address] [address] Mean Cell Hgb Conc 33.4 g/dL Normal 31.9-36.5 [facility] Comment on above: Performed By: #### H EMOGC #### [facility] (DEFAULT) [address] [address] Platelet mean volume (Bld) [Entitic vol] 9.4 fL Normal 8.7-12.3 [facility] Comment on above: Performed By: #### H EMOGC #### [facility] (DEFAULT) [address] [address] Platelets (Bld) [#/Vol] 250 10*3/uL Normal 146-337 [facility] Comment on above: Performed By: #### H EMOGC #### [facility] (DEFAULT) [address] [address] RBC (Bld) [#/Vol] 4.96 10*6/uL Normal 4.38-5.83 [facility] Comment on above: Performed By: #### H EMOGC #### [facility] (DEFAULT) [address] [address] RBC Distribution 13.3 % Normal 10.9-14.3 [facility] Comment on above: Performed By: #### H EMOGC #### [facility] (DEFAULT) [address] [address] WBC (Bld) [#/Vol] 7.42 10*3/uL Normal 3.73-10.10 [facility] Comment on above: Performed By: #### H EMOGC #### [facility] (DEFAULT) [address] [address] Erythrocyte distribution width (RBC) [Ratio] 13.2 % 10.9 - 14.3 % [facility] Hematocrit (Bld) [Volume fraction] 36.9 % Low 39.6 - 48.8 % [facility] Hemoglobin (Bld) [Mass/Vol] 12.2 g/dL Low 13.4 - 16.8 g/dL [facility] Interpretation and review of laboratory results Abnormal [facility] MCH (RBC) [Entitic mass] 26.7 pg 26. 1 - 33.3 pg [facility] MCHC (RBC) [Mass/Vol] 33.1 g/dL 31.9 - 36.5 g/dL [facility] MCV (RBC) [Entitic vol] 80.7 fL 79.0 - 94.5 fL [facility] Platelet mean volume (Bld) [Entitic vol] 9.6 fL 8.7 - 12.3 fL [facility] Platelets (Bld) [#/Vol] 255 10*3/uL 146 - 337 K/uL [facility] RBC (Bld) [#/Vol] 4.57 10*6/uL [facility] WBC (Bld) [#/Vol] 7.24 10*3/uL 3.73 - 10. 10 K/uL [facility] Hematocrit (Bld) [Volume fraction] 36.9 % Low 39.6-48.8 [facility] Comment on above: Performed By: #### Y NTBNP #### [facility] (DEFAULT) [address] [place] [address] Hemoglobin (Bld) [Mass/Vol] 12.2 g/dL Low 13.4-16.8 [facility] Comment on above: Performed By: #### Y NTBNP #### [facility] (DEFAULT) [address] [place] [address] MCV (RBC) [Entitic vol] 80.7 fL Normal 79.0-94.5 [facility] Comment on above: Performed By: #### Y NTBNP #### [facility] (DEFAULT) [address] [place] [address] Mean Cell Hgb 26.7 pg Normal 26.1-33.3 [facility] Comment on above: Performed By: #### Y NTBNP #### [facility] (DEFAULT) [address] [place] [address] Mean Cell Hgb Conc 33.1 g/dL Normal 31.9-36.5 [facility] Comment on above: Performed By: #### Y NTBNP #### [facility] (DEFAULT) [address] [place] [address] Platelet mean volume (Bld) [Entitic vol] 9.6 fL Normal 8.7-12.3 [facility] Comment on above: Performed By: #### Y NTBNP #### [facility] (DEFAULT) [address] [place] [address] Platelets (Bld) [#/Vol] 255 10*3/uL Normal 146-337 [facility] Comment on above: Performed By: #### Y NTBNP #### [facility] (DEFAULT) [address] [place] [address] RBC (Bld) [#/Vol] 4.57 10*6/uL Normal 4.38-5.83 [facility] Comment on above: Performed By: #### Y NTBNP #### [facility] (DEFAULT) [address] [place] [address] RBC Distribution 13.2 % Normal 10.9-14.3 [facility] Comment on above: Performed By: #### Y NTBNP #### [facility] (DEFAULT) [address] [place] [address] WBC (Bld) [#/Vol] 7.24 10*3/uL Normal 3.73-10.10 [facility] Comment on above: Performed By: #### Y NTBNP #### [facility] (DEFAULT) [address] [place] [address] CHEM 7 (LYTES,BUN,CREA,GLUC) on 10-23-2024 Anion gap [Moles/Vol] 11 mmol/L 7 - 17 mmol/L [facility] Chloride [Moles/Vol] 99 mmol/L 98 - 10 8 mmol/L [facility] CO2 [Moles/Vol] 31 mmol/L 21 - 31 mmol/L [facility] Creatinine [Mass/Vol] 0.56 mg/dL Low 0.70 - 1.30 mg/dL [facility] eGFR, CKD-EPI, Male - PINF [facility] Glucose [Mass/Vol] 171 mg/dL 70 - 179 mg/dL [facility] Interpretation and review of laboratory results Abnormal [facility] Osmolality Calc [Osmolality] 293 [facility] Potassium [Moles/Vol] 4.2 mmol/L 3.5 - 5.0 mmol/L [facility] Sodium [Moles/Vol] 137 mmol/L 135 - 145 mmol/L [facility] Urea nitrogen [Mass/Vol] 16 mg/dL 7 - 25 mg/d L [facility] Urea nitrogen/Creatinine [Mass ratio] 29 mg/mg [facility] Anion gap [Moles/Vol] 11 mmol/L Normal 7-17 [facility] Comment on above: Performed By: #### B LDCULT #### [facility] (DEFAULT) [address] [place] [address] Chloride [Moles/Vol] 99 mmol/L Normal 98-108 [facility] Comment on above: Performed By: #### B LDCULT #### [facility] (DEFAULT) [address] [place] [address] CO2 [Moles/Vol] 31 mmol/L Normal 21-31 [facility] Comment on above: Performed By: #### B LDCULT #### [facility] (DEFAULT) [address] [place] [address] Creatinine [Mass/Vol] 0.56 mg/dL Low 0.70-1.30 [facility] Comment on above: Performed By: #### B LDCULT #### [facility] (DEFAULT) [address] [place] [address] eGFR, CKD-EPI, Male > Normal >=60 [facility] Comment on above: Result Comment: Repo rted eGFR is based on the CKD-EPI 2020 equation using creatinine, age, and sex. Performed By: #### B LDCULT #### [facility] (DEFAULT) [address] [place] [address] Glucose [Mass/Vol] 171 mg/dL Normal Nonfastin -179 mg/dL; Fastin-99 [facility] Comment on above: Performed By: #### B LDCULT #### [facility] (DEFAULT) [address] [place] [address] Osmolality [Osmolality] 293 mosm/kg Normal 278-305 [facility] Comment on above: Performed By: #### B LDCULT #### [facility] (DEFAULT) [address] [place] [address] Potassium [Moles/Vol] 4.2 mmol/L Normal 3.5-5.0 [facility] Comment on above: Performed By: #### B LDCULT #### [facility] (DEFAULT) [address] [place] [address] Sodium [Moles/Vol] 137 mmol/L Normal 135-145 [facility] Comment on above: Performed By: #### B LDCULT #### [facility] (DEFAULT) [address] [place] [address] Urea nitrogen [Mass/Vol] 16 mg/dL Normal 7-25 [facility] Comment on above: Performed By: #### B LDCULT #### [facility] (DEFAULT) [address] [place] [address] Urea nitrogen/Creatinine [Mass ratio] 29 mg/mg Normal [facility] Comment on above: Performed By: #### B LDCULT #### [facility] (DEFAULT) [address] [place] [address] 14118 Anion gap [Moles/Vol] 10 mmol/L 7 - 17 mmol/L [facility] Chloride [Moles/Vol] 101 mmol/L 98 - 10 8 mmol/L [facility] CO2 [Moles/Vol] 33 mmol/L High 21 - 31 mmol/L [facility] Creatinine [Mass/Vol] 0.56 mg/dL Low 0.70 - 1.30 mg/dL [facility] eGFR, CKD-EPI, Male - PINF [facility] Glucose [Mass/Vol] 146 mg/dL 70 - 179 mg/dL [facility] Interpretation and review of laboratory results Abnormal [facility] Osmolality Calc [Osmolality] 298 [facility] Potassium [Moles/Vol] 4.2 mmol/L 3.5 - 5.0 mmol/L [facility] Sodium [Moles/Vol] 140 mmol/L 135 - 145 mmol/L [facility] Urea nitrogen [Mass/Vol] 17 mg/dL 7 - 25 mg/d L [facility] Urea nitrogen/Creatinine [Mass ratio] 30 mg/mg [facility] Anion gap [Moles/Vol] 10 mmol/L Normal 7-17 [facility] Comment on above: Performed By: #### T YPEC #### [facility] (DEFAULT) [address] [address] Chloride [Moles/Vol] 101 mmol/L Normal 98-108 [facility] Comment on above: Performed By: #### T YPEC #### [facility] (DEFAULT) [address] [place] [address] CO2 [Moles/Vol] 33 mmol/L High 21-31 [facility] Comment on above: Performed By: #### T YPEC #### [facility] (DEFAULT) [address] [place] [address] Creatinine [Mass/Vol] 0.56 mg/dL Low 0.70-1.30 [facility] Comment on above: Performed By: #### T YPEC #### [facility] (DEFAULT) [address] [place] [address] 67398 eGFR, CKD-EPI, Male > Normal >=60 [facility] Comment on above: Result Comment: Repo rted eGFR is based on the CKD-EPI 2020 equation using creatinine, age, and sex. Performed By: #### T YPEC #### [facility] (DEFAULT) [address] [place] [address] 01450 Glucose [Mass/Vol] 146 mg/dL Normal Nonfastin -179 mg/dL; Fastin-99 [facility] Comment on above: Performed By: #### T YPEC #### [facility] (DEFAULT) [address] [place] [address] 13049 Osmolality [Osmolality] 298 mosm/kg Normal 278-305 [facility] Comment on above: Performed By: #### T YPEC #### [facility] (DEFAULT) [address] [place] [address] 99212 Potassium [Moles/Vol] 4.2 mmol/L Normal 3.5-5.0 [facility] Comment on above: Performed By: #### T YPEC #### [facility] (DEFAULT) [address] [place] [address] 66205 Sodium [Moles/Vol] 140 mmol/L Normal 135-145 [facility] Comment on above: Performed By: #### T YPEC #### [facility] (DEFAULT) [address] [place] [address] 04865 Urea nitrogen [Mass/Vol] 17 mg/dL Normal 7-25 [facility] Comment on above: Performed By: #### T YPEC #### [facility] (DEFAULT) [address] [place] [address] 68222 Urea nitrogen/Creatinine [Mass ratio] 30 mg/mg Normal [facility] Comment on above: Performed By: #### T YPEC #### [facility] (DEFAULT) [address] [address] GLUCOSE POCon 10-23-2024 Glucose [Mass/Vol] 166 mg/dL 70 - 179 [facility] Glucose [Mass/Vol] 189 mg/dL High 70 - 179 mg/dL [facility] Interpretation and review of laboratory results Abnormal [facility] POC [facility]ucose [Mass/Vol] 174 mg/dL 70 - 179 mg/dL [facility] POC Sample [facility] Glucose [Mass/Vol] 189 mg/dL High 70 - 179 mg/dL [facility] Interpretation and review of laboratory results Abnormal [facility] POC Sample Type CAPBL [facility] Glucose [Mass/Vol] 113 mg/dL 70 - 179 mg/dL [facility] Glucose [Mass/Vol] 171 mg/dL 70 - 179 mg/dL [facility] Glucose [Mass/Vol] 141 mg/dL 70 - 179 mg/dL [facility] Glucose [Mass/Vol] 183 mg/dL High 70 - 179 mg/dL [facility] Interpretation and review of laboratory results Abnormal [facility]OC [facility] No Panel Informationon 10-23 [facility]OC Sample [facility] VANCOMYCIN LEVEL, TROUGH (NE E DRUG LEVEL)on 10-23-2024 Interpretation and review of laboratory results Normal [facility] Vancomycin trough [Mass/Vol] 17.4 ug/mL [facility] Vancomycin, Trough 17.4 mcg/mL Normal Therapeut ic Range: 10.0-20.0 mcg/mL [facility] Comment on above: Order Comment: Plerad e draw level at specified interval PRIOR to next dose. Performed By: #### V ANCTR #### [facility] (DEFAULT) [address] [place] [address] Bacteria identified Cx Nom ( Bld)on 10-22-2024 Bacteria identified Cx Nom (Unsp spec) NO GROWTH DAY 5 OF 5 [facility] Bacteria identified Cx Nom (Unsp spec) NO GROWTH DAY 5 OF 5 [facility] CBC,PLATELETSon 10-22-2024 Erythrocyte distribution width (RBC) [Ratio] 13.2 % 10.9 - 14.3 % [facility] Hematocrit (Bld) [Volume fraction] 36.4 % Low 39.6 - 48.8 % [facility] Hemoglobin (Bld) [Mass/Vol] 11.6 g/dL Low 13.4 - 16.8 g/dL [facility] Interpretation and review of laboratory results Abnormal [facility] MCH (RBC) [Entitic mass] 26 pg Low 26. 1 - 33.3 pg [facility] MCHC (RBC) [Mass/Vol] 31.9 g/dL 31.9 - 36.5 g/dL [facility] MCV (RBC) [Entitic vol] 81.6 fL 79.0 - 94.5 fL [facility] Platelet mean volume (Bld) [Entitic vol] 9.4 fL 8.7 - 12.3 fL [facility] Platelets (Bld) [#/Vol] 236 10*3/uL 146 - 337 K/uL [facility] RBC (Bld) [#/Vol] 4.46 10*6/uL [facility] WBC (Bld) [#/Vol] 6.47 10*3/uL 3.73 - 10. 10 K/uL [facility] Hematocrit (Bld) [Volume fraction] 36.4 % Low 39.6-48.8 [facility] Comment on above: Performed By: #### X M #### [facility] (DEFAULT) [address] [place] [address] 664[address] Hemoglobin (Bld) [Mass/Vol] 11.6 g/dL Low 13.4-16.8 [facility] Comment on above: Performed By: #### X M #### [facility] (DEFAULT) [address] [place] [address] 32789 MCV (RBC) [Entitic vol] 81.6 fL Normal 79.0-94.[address] [facility] Comment on above: Performed By: #### X M #### [facility] (DEFAULT) [address] [place] [address] 68518 Mean Cell Hgb 26.0 pg Low 26.1-33.3 [facility] Comment on above: Performed By: #### X M #### [facility] (DEFAULT) [address] [place] [address] 35394 Mean Cell Hgb Conc 31.9 g/dL Normal 31.9-36.5 [facility] Comment on above: Performed By: #### X M #### [facility] (DEFAULT) [address] [place] [address] 64617 Platelet mean volume (Bld) [Entitic vol] 9.4 fL Normal 8.7-12.3 [facility] Comment on above: Performed By: #### X M #### [facility] (DEFAULT) [address] [place] [address] 91532 Platelets (Bld) [#/Vol] 236 10*3/uL Normal 146-337 [facility] Comment on above: Performed By: #### X M #### [facility] (DEFAULT) [address] [place] [address] 94220 RBC (Bld) [#/Vol] 4.46 10*6/uL Normal 4.38-5.83 [facility] Comment on above: Performed By: #### X M #### [facility] (DEFAULT) [address] [place] [address] RBC Distribution 13.2 % Normal 10.9-14.3 [facility] Comment on above: Performed By: #### X M #### [facility] (DEFAULT) [address] [place] [address] WBC (Bld) [#/Vol] 6.47 10*3/uL Normal 3.73-10.10 [facility] Comment on above: Performed By: #### X M #### [facility] (DEFAULT) [address] [place] [address] CHEM 7 (LYTES,BUN,CREA,GLUC) on 10-22-2024 Anion gap [Moles/Vol] 8 mmol/L 7 - 17 mmol/L [facility] Chloride [Moles/Vol] 102 mmol/L 98 - 10 8 mmol/L [facility] CO2 [Moles/Vol] 32 mmol/L High 21 - 31 mmol/L [facility] Creatinine [Mass/Vol] 0.56 mg/dL Low 0.70 - 1.30 mg/dL [facility] eGFR, CKD-EPI, Male - PINF [facility] Glucose [Mass/Vol] 138 mg/dL 70 - 179 mg/dL [facility] Interpretation and review of laboratory results Abnormal [facility] Osmolality Calc [Osmolality] 292 [facility] Potassium [Moles/Vol] 4.1 mmol/L 3.5 - 5.0 mmol/L [facility] Sodium [Moles/Vol] 138 mmol/L 135 - 145 mmol/L [facility] Urea nitrogen [Mass/Vol] 15 mg/dL 7 - 25 mg/d L [facility] Urea nitrogen/Creatinine [Mass ratio] 27 mg/mg [facility] Anion gap [Moles/Vol] 8 mmol/L Normal 7-17 [facility] Comment on above: Performed By: #### B LDCULT #### [facility] (DEFAULT) [address] [place] [address]17 Chloride [Moles/Vol] 102 mmol/L Normal 98-108 [facility] Comment on above: Performed By: #### B LDCULT #### [facility] (DEFAULT) [address] [place] [address] 49522 CO2 [Moles/Vol] 32 mmol/L High 21-31 [facility] Comment on above: Performed By: #### B LDCULT #### [facility] (DEFAULT) [address] [place] [address] 79716 Creatinine [Mass/Vol] 0.56 mg/dL Low 0.70-1.30 [facility] Comment on above: Performed By: #### B LDCULT #### [facility] (DEFAULT) [address] [place] [address] 81151 eGFR, CKD-EPI, Male > Normal >=60 [facility] Comment on above: Result Comment: Repo rted eGFR is based on the CKD-EPI 2020 equation using creatinine, age, and sex. Performed By: #### B LDCULT #### [facility] (DEFAULT) [address] [place] [address] Glucose [Mass/Vol] 138 mg/dL Normal Nonfastin -179 mg/dL; Fastin-99 [facility] Comment on above: Performed By: #### B LDCULT #### [facility] (DEFAULT) [address] [place] [address] 08028 Osmolality [Osmolality] 292 mosm/kg Normal 278-305 [facility] Comment on above: Performed By: #### B LDCULT #### [facility] (DEFAULT) [address] [place] [address] 03389 Potassium [Moles/Vol] 4.1 mmol/L Normal 3.5-5.0 [facility] Comment on above: Performed By: #### B LDCULT #### [facility] (DEFAULT) [address] [place] [address] Sodium [Moles/Vol] 138 mmol/L Normal 135-145 [facility] Comment on above: Performed By: #### B LDCULT #### [facility] (DEFAULT) [address] [place] [address] Urea nitrogen [Mass/Vol] 15 mg/dL Normal 7-25 [facility] Comment on above: Performed By: #### B LDCULT #### [facility] (DEFAULT) [address] [place] [address] Urea nitrogen/Creatinine [Mass ratio] 27 mg/mg Normal [facility] Comment on above: Performed By: #### B LDCULT #### [facility] (DEFAULT) [address] [place] [address] Culture, Anaerobic Any Sourc devonte 10-22-2024 CUAN NO COLLECTION INFO GIVEN UNK UNK CALCANEAL BONE COLLECTED IN OR No anaerobic bacteria isolated. Normal [facility] Comment on above: Performed By: #### M 100.2000, M100.3000, M100.4001 ####[facility] [id number] [place], [address] ECGOrdered By: Trip page 10-22-2024 [facility] Work Phone: GLUCOSE POCon 10-22-2024 Glucose [Mass/Vol] 184 mg/dL High 70 - 179 mg/dL [facility] Interpretation and review of laboratory results Abnormal [facility] Glucose [Mass/Vol] 166 mg/dL 70 - 179 mg/dL [facility] Glucose [Mass/Vol] 130 mg/dL 70 - 179 mg/dL [facility] Glucose [Mass/Vol] 147 mg/dL 70 - 179 mg/dL [facility] HIGH SENSITIVITY TROPONIN I - SINGLE ORDERon 10-22-2024 Interpretation and review of laboratory results Normal [facility] Troponin I.cardiac High sensitivity method [Mass/Vol] 4 ng/L NINF - 53 ng/L [facility] hs-Troponin I 4 ng/L Normal <53 [facility] Comment on above: Order Comment: 2 [...] bottle. Performed By: #### B LDCULT #### [facility] (DEFAULT) [address] [address] IONIZED CALCIUM, SERUMon Calcium.ionized (Bld) [Moles/Vol] 5.26 mg/dL 4.60 - 5.30 mg/dL [facility] Interpretation and review of laboratory results Normal [facility] ICA 5.26 mg/dL Normal 4.60-5.30 [facility] Comment on above: Performed By: #### I CASST ####[facility] (DEFAULT)[address] [place] [address] MAGNESIUMon 10-22-2024 Magnesium [Mass/Vol] 2 mg/dL 1.6 - 2 .6 mg/dL [facility] Magnesium [Mass/Vol] 2.0 mg/dL Normal 1.6-2.6 [facility] Comment on above: Performed By: #### B LDCULT #### [facility] (DEFAULT) [address] [place] [address] No Panel Informationon 10-22 POC Sample Type CAPBL [facility] POC Sample Type CAPBL [facility] Interpretation and review of laboratory results Normal [facility] PHOSPHATE, INORGANICon 10-22 Phosphate [Mass/Vol] 3.3 mg/dL 2.2 - 4 .6 mg/dL [facility] Phosphorous 3.3 mg/dL Normal 2.2-4.6 [facility] Comment on above: Performed By: #### B LDCULT #### [facility] (DEFAULT) [address] [place] [address] 02924 VENOUS BLOOD GASon Base excess Calc (Bld) [Moles/Vol] 9 mmol/L High -3.0 - 3.0 mmol/L [facility] CO2 (Bld) [Partial pressure] 53 mm[Hg] High [facility] HCO3 (Bld) [Moles/Vol] 34 mmol/L High 22 - 29 mmol/L [facility] Interpretation and review of laboratory results Abnormal [facility] Oxygen (Bld) [Partial pressure] 54 mm[Hg] mm Hg [facility] Oxygen saturation in Blood 87 % High 70 - 80 % [facility] pH (Bld) 7.41 [pH] 7.32 - 7.43 [facility] Specimen source Nom (Unsp spec) Venous [facility] Base Excess 9.0 mmol/L High -3.0-3.0 [facility] Comment on above: Performed By: #### X M #### [facility] (DEFAULT) [address] [place] [address] 85134 HCO3 (Bld) [Moles/Vol] 34 mmol/L High 22-29 [facility] Comment on above: Performed By: #### X M #### [facility] (DEFAULT) [address] [place] [address] 03920 Oxygen saturation in Blood 87 % High 70-80 [facility] Comment on above: Performed By: #### X M #### [facility] (DEFAULT) [address] [place] [address] 14712 pCO2, Venous 53 mm Hg High 36-52 [facility] Comment on above: Performed By: #### X M #### [facility] (DEFAULT) [address] [place] [address] 05771 pH, Venous 7.41 Normal 7.32-7.43 [facility] Comment on above: Performed By: #### X M #### [facility] (DEFAULT) [address] [place] [address] 30229 pO2, Venous 54 mm Hg Normal [facility] Comment on above: Result Comment: Veno us pO2 is not recommended for the evaluation of oxygen status, clinical correlation is recommended. Performed By: #### X M #### [facility] (DEFAULT) [address] [place] [address] 69281 Specimen type Nom (Spec) Venous Normal [facility] Comment on above: Performed By: #### X M #### [facility] (DEFAULT) [address] [place] [address]114 ANTI XA LMWH (ENOXAPARIN),*E XACT TIME REQUIRED* 4 HR POSTOrdered By: Helen Morton on 10-21-2024 Interpretation and review of laboratory results Abnormal [facility] LMW Heparin Chromogenic method Qn (PPP) 0.43 Low [facility] ANTI XA LMWH (ENOXAPARIN),*E XACT TIME REQUIRED* 4 HR Janice 10-21-2024 Anti Xa LMWH (Enoxaparin) 4 Hr Post 0.43 Anti-Xa IU/mL Low 0.60-1.00 [facility] Comment on above: Order Comment: For i ndwelling catheters, specimen collection is acceptable on catheter day 1 and 2 only. ? Result Comment: Ther apeutic range applies to 4 hour post dose collections. Performed By: #### U [id number] #### [facility] (DEFAULT) [address] [place] [address] 35184 CBC,PLATELETSon 10-21-2024 Erythrocyte distribution width (RBC) [Ratio] 12.9 % 10.9 - 14.3 % [facility] Hematocrit (Bld) [Volume fraction] 34.8 % Low 39.6 - 48.8 % [facility] Hemoglobin (Bld) [Mass/Vol] 10.8 g/dL Low 13.4 - 16.8 g/dL [facility] Interpretation and review of laboratory results Abnormal [facility] MCH (RBC) [Entitic mass] 25.9 pg Low 26. 1 - 33.3 pg [facility] MCHC (RBC) [Mass/Vol] 31 g/dL Low 31.9 - 36.5 g/dL [facility] MCV (RBC) [Entitic vol] 83.5 fL 79.0 - 94.5 fL [facility] Platelet mean volume (Bld) [Entitic vol] 9.7 fL 8.7 - 12.3 fL [facility] Platelets (Bld) [#/Vol] 228 10*3/uL 146 - 337 K/uL [facility] RBC (Bld) [#/Vol] 4.17 10*6/uL Low [facility] WBC (Bld) [#/Vol] 6.63 10*3/uL 3.73 - 10. 10 K/uL [facility] Hematocrit (Bld) [Volume fraction] 34.8 % Low 39.6-48.8 [facility] Comment on above: Performed By: #### C HM7 #### [facility] (DEFAULT) [address] [place] [address] 67234 Hemoglobin (Bld) [Mass/Vol] 10.8 g/dL Low 13.4-16.8 [facility] Comment on above: Performed By: #### C HM7 #### [facility] (DEFAULT) [address] [place] [address] 37298 MCV (RBC) [Entitic vol] 83.5 fL Normal 79.0-94.5 [facility] Comment on above: Performed By: #### C HM7 #### [facility] (DEFAULT) [address] [place] [address] 63359 Mean Cell Hgb 25.9 pg Low 26.1-33.3 [facility] Comment on above: Performed By: #### C HM7 #### [facility] (DEFAULT) [address] [address] Mean Cell Hgb Conc 31.0 g/dL Low 31.9-36.5 [facility] Comment on above: Performed By: #### Sara HM7 #### [facility] (DEFAULT) [address] [address] Platelet mean volume (Bld) [Entitic vol] 9.7 fL Normal 8.7-12.3 [facility] Comment on above: Performed By: #### Sara HM7 #### [facility] (DEFAULT) [address] [address] Platelets (Bld) [#/Vol] 228 10*3/uL Normal 146-337 [facility] Comment on above: Performed By: #### Sara HM7 #### [facility] (DEFAULT) [address] [address] RBC (Bld) [#/Vol] 4.17 10*6/uL Low 4.38-5.83 [facility] Comment on above: Performed By: #### C HM7 #### [facility] (DEFAULT) [address] [address] RBC Distribution 12.9 % Normal 10.9-14.3 [facility] Comment on above: Performed By: #### C HM7 #### [facility] (DEFAULT) [address] [address] WBC (Bld) [#/Vol] 6.63 10*3/uL Normal 3.73-10.10 [facility] Comment on above: Performed By: #### C HM7 #### [facility] (DEFAULT) [address] [address] CHEM 7 (LYTES,BUN,CREA,GLUC) on 10-21-2024 Anion gap [Moles/Vol] 10 mmol/L 7 - 17 mmol/L [facility] Chloride [Moles/Vol] 101 mmol/L 98 - 10 8 mmol/L [facility] CO2 [Moles/Vol] 34 mmol/L High 21 - 31 mmol/L [facility] Creatinine [Mass/Vol] 0.76 mg/dL 0.70 - 1.30 mg/dL [facility] eGFR, CKD-EPI, Male - PINF [facility] Glucose [Mass/Vol] 124 mg/dL 70 - 179 mg/dL [facility] Interpretation and review of laboratory results Abnormal [facility] Osmolality Calc [Osmolality] 298 [facility] Potassium [Moles/Vol] 4.1 mmol/L 3.5 - 5.0 mmol/L [facility] Sodium [Moles/Vol] 141 mmol/L 135 - 145 mmol/L [facility] Urea nitrogen [Mass/Vol] 16 mg/dL 7 - 25 mg/d L [facility] Urea nitrogen/Creatinine [Mass ratio] 21 mg/mg [facility] Anion gap [Moles/Vol] 10 mmol/L Normal 7-17 [facility] Comment on above: Performed By: #### Y NTBNP #### [facility] (DEFAULT) [address] [place] [address]487 Chloride [Moles/Vol] 101 mmol/L Normal 98-108 [facility] Comment on above: Performed By: #### Y NTBNP #### [facility] (DEFAULT) [address] [place] [address] CO2 [Moles/Vol] 34 mmol/L High 21-31 [facility] Comment on above: Performed By: #### Y NTBNP #### [facility] (DEFAULT) [address] [place] [address]852 Creatinine [Mass/Vol] 0.76 mg/dL Normal 0.70-1.30 [facility] Comment on above: Performed By: #### Y NTBNP #### [facility] (DEFAULT) [address] [place] [address] 67361 eGFR, CKD-EPI, Male > Normal >=60 [facility] Comment on above: Result Comment: Repo rted eGFR is based on the CKD-EPI 2020 equation using creatinine, age, and sex. Performed By: #### Y NTBNP #### [facility] (DEFAULT) [address] [place] [address]88 Glucose [Mass/Vol] 124 mg/dL Normal Nonfastin -179 mg/dL; Fastin-99 [facility] Comment on above: Performed By: #### Y NTBNP #### [facility] (DEFAULT) [address] [place] [address] 81147 Osmolality [Osmolality] 298 mosm/kg Normal 278-305 [facility] Comment on above: Performed By: #### Y NTBNP #### [facility] (DEFAULT) [address] [place] [address]79 Potassium [Moles/Vol] 4.1 mmol/L Normal 3.5-5.0 [facility] Comment on above: Performed By: #### Y NTBNP #### [facility] (DEFAULT) [address] [place] [address] 06475 Sodium [Moles/Vol] 141 mmol/L Normal 135-145 [facility] Comment on above: Performed By: #### Y NTBNP #### [facility] (DEFAULT) [address] [place] [address] 59267 Urea nitrogen [Mass/Vol] 16 mg/dL Normal 7-25 [facility] Comment on above: Performed By: #### Y NTBNP #### [facility] (DEFAULT) [address] [place] [address] 55601 Urea nitrogen/Creatinine [Mass ratio] 21 mg/mg Normal [facility] Comment on above: Performed By: #### Y NTBNP #### [facility] (DEFAULT) [address] [place] [address] 77815 CYSTATIN C AND CREATININE WI TH ESTIMATED GFRon 10-21-2024 Creatinine [Mass/Vol] 0.65 mg/dL Low 0.70 - 1.30 mg/dL [facility] Cystatin C 1.8 mg/L High 0.51 - 1.05 mg/L [facility] EGFR BY CYS C AND CREATININE, MALE 57 Low - PINF [facility] Interpretation and review of laboratory results Abnormal [facility] Creatinine [Mass/Vol] 0.65 mg/dL Low 0.70-1.30 [facility] Comment on above: Performed By: #### C HM7 #### [facility] (DEFAULT) [address] [address] Cystatin C 1.80 mg/L High 0.51-1.05 [facility] Comment on above: Performed By: #### C HM7 #### [facility] (DEFAULT) [address] [address] EGFR BY CYS C AND CREATININE, MALE 57 mL/min/1.73m2 Low >=60 [facility] Comment on above: Result Comment: Repo rted eGFR is based on the CKD-EPI 2020 equation using cystatin C, creatinine, age, and sex. Performed By: #### C HM7 #### [facility] (DEFAULT) [address] [address] GLUCOSE POCon 10-21-2024 Glucose [Mass/Vol] 184 mg/dL High 70 - 179 mg/dL [facility] Glucose [Mass/Vol] 158 mg/dL 70 - 179 mg/dL [facility] Interpretation and review of laboratory results Abnormal [facility] POC Sample Type ARTER [facility] IONIZED CALCIUM, SERUMOrdere d By: Yahir Patton on 10-21-2024 Calcium.ionized (Bld) [Moles/Vol] 5.01 mg/dL 4.60 - 5.30 mg/dL [facility] Interpretation and review of laboratory results Normal [facility] IONIZED CALCIUM, SERUMon ICA 5.01 mg/dL Normal 4.60-5.30 [facility] Comment on above: Performed By: #### C HM7 #### [facility] [facility] [address] [place] [address] Laboratory - Chemistry and C hemistry - challengeon 10-21-2024 Glucose [Mass/Vol] 134 mg/dL 70 - 179 mg/dL [facility] MAGNESIUMon 10-21-2024 Magnesium [Mass/Vol] 2 mg/dL 1.6 - 2 .6 mg/dL [facility] Magnesium [Mass/Vol] 2.0 mg/dL Normal 1.6-2.6 [facility] Comment on above: Performed By: #### Y NTBNP #### [facility] (DEFAULT) [address] [place] [address] MR Brain WO contraston 10-21 RADIOLOGY RADIOLOGY [facility] Radiology Study observation (narrative) [facility] MR Brain WO contrastOrdered By: Lawrence Cruz on 10-21-2024 [facility] Work Phone: MRI BRAIN WITHOUT CONTRASTon [...] 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 No progressive mass effect. Stable small volume of intraventricular extension of hemorrhage. Normal [facility] No Panel Informationon 10-21 POC Sample Type CAPBL [facility] Interpretation and review of laboratory results Normal [facility] PHOSPHATE, INORGANICon 10-21 Phosphate [Mass/Vol] 3.2 mg/dL 2.2 - 4 .6 mg/dL [facility] Phosphorous 3.2 mg/dL Normal 2.2-4.6 [facility] Comment on above: Performed By: #### Y NTBNP #### [facility] (DEFAULT) [address] [place] [address] Portable XR Chest Viewson RADIOLOGY RADIOLOGY [facility] Radiology Study observation (narrative) [facility] Portable XR Chest ViewsOrder ed By: Tonio Yancey on 10-21-2024 [facility] VANCOMYCIN LEVEL, TROUGH (NE E DRUG LEVEL)on 10-21-2024 Interpretation and review of laboratory results Normal [facility] Vancomycin trough [Mass/Vol] 18.3 ug/mL [facility] Vancomycin, Trough 18.3 mcg/mL Normal Therapeut ic Range: 10.0-20.0 mcg/mL [facility] Comment on above: Order Comment: Pleas e draw level at specified interval PRIOR to next dose. Please hold the dose if level > 20 Performed By: #### X M #### [facility] (DEFAULT) [address] [place] [address]26 XR CHEST 1 VIEW PORTABLEon 0 10-21-2024 [...] consistent with small effusions and atelectasis. Normal [facility] CBC,PLATELETSon 10-20-2024 Erythrocyte distribution width (RBC) [Ratio] 13 % 10.9 - 14.3 % [facility] Hematocrit (Bld) [Volume fraction] 34.2 % Low 39.6 - 48.8 % [facility] Hemoglobin (Bld) [Mass/Vol] 10.7 g/dL Low 13.4 - 16.8 g/dL [facility] Interpretation and review of laboratory results Abnormal [facility] MCH (RBC) [Entitic mass] 26.1 pg 26. 1 - 33.3 pg [facility] MCHC (RBC) [Mass/Vol] 31.3 g/dL Low 31.9 - 36.5 g/dL [facility] MCV (RBC) [Entitic vol] 83.4 fL 79.0 - 94.5 fL [facility] Platelet mean volume (Bld) [Entitic vol] 9.4 fL 8.7 - 12.3 fL [facility] Platelets (Bld) [#/Vol] 235 10*3/uL 146 - 337 K/uL [facility] RBC (Bld) [#/Vol] 4.1 10*6/uL Low [facility] WBC (Bld) [#/Vol] 6.78 10*3/uL 3.73 - 10. 10 K/uL [facility] Hematocrit (Bld) [Volume fraction] 34.2 % Low 39.6-48.8 [facility] Comment on above: Performed By: #### T YPEC #### [facility] (DEFAULT) [address] [address] Hemoglobin (Bld) [Mass/Vol] 10.7 g/dL Low 13.4-16.8 [facility] Comment on above: Performed By: #### T YPEC #### [facility] (DEFAULT) [address] [address] MCV (RBC) [Entitic vol] 83.4 fL Normal 79.0-94.5 O [facility] Comment on above: Performed By: #### T YPEC #### [facility] (DEFAULT) [address] [address] Mean Cell Hgb 26.1 pg Normal 26.1-33.3 [facility] Comment on above: Performed By: #### T YPEC #### [facility] (DEFAULT) [address] [address] Mean Cell Hgb Conc 31.3 g/dL Low 31.9-36.5 [facility] Comment on above: Performed By: #### T YPEC #### [facility] (DEFAULT) [address] [address] Platelet mean volume (Bld) [Entitic vol] 9.4 fL Normal 8.7-12.3 [facility] Comment on above: Performed By: #### T YPEC #### [facility] (DEFAULT) [address] [address] Platelets (Bld) [#/Vol] 235 10*3/uL Normal 146-337 [facility] Comment on above: Performed By: #### T YPEC #### [facility] (DEFAULT) [address] [address] RBC (Bld) [#/Vol] 4.10 10*6/uL Low 4.38-5.83 [facility] Comment on above: Performed By: #### T YPEC #### [facility] (DEFAULT) [address] [place] [address] RBC Distribution 13.0 % Normal 10.9-14.3 [facility] Comment on above: Performed By: #### T YPEC #### [facility] (DEFAULT) [address] [place] [address] WBC (Bld) [#/Vol] 6.78 10*3/uL Normal 3.73-10.10 [facility] Comment on above: Performed By: #### T YPEC #### [facility] (DEFAULT) [address] [address] CHEM 7 (LYTES,BUN,CREA,GLUC) on 10-20-2024 Anion gap [Moles/Vol] 9 mmol/L 7 - 17 mmol/L [facility] Chloride [Moles/Vol] 102 mmol/L 98 - 10 8 mmol/L [facility] CO2 [Moles/Vol] 36 mmol/L High 21 - 31 mmol/L [facility] Creatinine [Mass/Vol] 0.67 mg/dL Low 0.70 - 1.30 mg/dL [facility] eGFR, CKD-EPI, Male - PINF [facility] Glucose [Mass/Vol] 162 mg/dL 70 - 179 mg/dL [facility] Interpretation and review of laboratory results Abnormal [facility] Osmolality Calc [Osmolality] 304 [facility] Potassium [Moles/Vol] 4.1 mmol/L 3.5 - 5.0 mmol/L [facility] Sodium [Moles/Vol] 143 mmol/L 135 - 145 mmol/L [facility] Urea nitrogen [Mass/Vol] 16 mg/dL 7 - 25 [facility] Urea nitrogen/Creatinine [Mass ratio] 24 mg/mg [facility] Anion gap [Moles/Vol] 9 mmol/L Normal 7-17 [facility] Comment on above: Performed By: #### T YPEC #### [facility] (DEFAULT) [address] [place] [address] Chloride [Moles/Vol] 102 mmol/L Normal 98-108 [facility] Comment on above: Performed By: #### T YPEC #### [facility] (DEFAULT) [address] [place] [address] CO2 [Moles/Vol] 36 mmol/L High 21-31 [facility] Comment on above: Performed By: #### T YPEC #### [facility] (DEFAULT) [address] [place] [address] Creatinine [Mass/Vol] 0.67 mg/dL Low 0.70-1.30 [facility] Comment on above: Performed By: #### T YPEC #### [facility] (DEFAULT) [address] [address] eGFR, CKD-EPI, Male > Normal >=60 [facility] Comment on above: Result Comment: Repo rted eGFR is based on the CKD-EPI 2020 equation using creatinine, age, and sex. Performed By: #### T YPEC #### [facility] (DEFAULT) [address] [address] Glucose [Mass/Vol] 162 mg/dL Normal Nonfastin -179 mg/dL; Fastin-99 [facility] Comment on above: Performed By: #### T YPEC #### [facility] (DEFAULT) [address] [address] Osmolality [Osmolality] 304 mosm/kg Normal 278-305 [facility] Comment on above: Performed By: #### T YPEC #### [facility] (DEFAULT) [address] [address] Potassium [Moles/Vol] 4.1 mmol/L Normal 3.5-5.0 [facility] Comment on above: Performed By: #### T YPEC #### [facility] (DEFAULT) [address] [place] [address] Sodium [Moles/Vol] 143 mmol/L Normal 135-145 [facility] Comment on above: Performed By: #### T YPEC #### [facility] (DEFAULT) [address] [place] [address] Urea nitrogen [Mass/Vol] 16 mg/dL Normal 7-25 [facility] Comment on above: Performed By: #### T YPEC #### [facility] (DEFAULT) [address] [place] [address] Urea nitrogen/Creatinine [Mass ratio] 24 mg/mg Normal [facility] Comment on above: Performed By: #### T YPEC #### [facility] (DEFAULT) [address] [place] [address] Anion gap [Moles/Vol] 10 mmol/L 7 - 17 mmol/L [facility] Chloride [Moles/Vol] 99 mmol/L 98 - 10 8 mmol/L [facility] CO2 [Moles/Vol] 35 mmol/L High 21 - 31 mmol/L [facility] Creatinine [Mass/Vol] 0.66 mg/dL Low 0.70 - 1.30 mg/dL [facility] eGFR, CKD-EPI, Male - PINF [facility] Glucose [Mass/Vol] 136 mg/dL 70 - 179 mg/dL [facility] Interpretation and review of laboratory results Abnormal [facility] Osmolality Calc [Osmolality] 296 [facility] Potassium [Moles/Vol] 4 mmol/L 3.5 - 5.0 mmol/L [facility] Sodium [Moles/Vol] 140 mmol/L 135 - 145 mmol/L [facility] Urea nitrogen [Mass/Vol] 16 mg/dL 7 - 25 mg/d L [facility] Urea nitrogen/Creatinine [Mass ratio] 24 mg/mg [facility] Anion gap [Moles/Vol] 10 mmol/L Normal 7-17 [facility] Comment on above: Performed By: #### U [id number] #### [facility] (DEFAULT) [address] [place] [address] Chloride [Moles/Vol] 99 mmol/L Normal 98-108 [facility] Comment on above: Performed By: #### U [id number] #### [facility] (DEFAULT) [address] [place] [address] CO2 [Moles/Vol] 35 mmol/L High 21-31 [facility] Comment on above: Performed By: #### U [id number] #### [facility] (DEFAULT) [address] [place] [address] Creatinine [Mass/Vol] 0.66 mg/dL Low 0.70-1.30 [facility] Comment on above: Performed By: #### U [id number] #### [facility] (DEFAULT) [address] [place] [address] 10887 eGFR, CKD-EPI, Male > Normal >=60 [facility] Comment on above: Result Comment: Repo rted eGFR is based on the CKD-EPI 2020 equation using creatinine, age, and sex. Performed By: #### U [id number] #### [facility] (DEFAULT) [address] [place] [address] Glucose [Mass/Vol] 136 mg/dL Normal Nonfastin -179 mg/dL; Fastin-99 [facility] Comment on above: Performed By: #### U [id number] #### [facility] (DEFAULT) [address] [place] [address] Osmolality [Osmolality] 296 mosm/kg Normal 278-305 [facility] Comment on above: Performed By: #### U [id number] #### [facility] (DEFAULT) [address] [address] Potassium [Moles/Vol] 4.0 mmol/L Normal 3.5-5.0 [facility] Comment on above: Performed By: #### U [id number] #### [facility] (DEFAULT) [address] [place] [address] Sodium [Moles/Vol] 140 mmol/L Normal 135-145 [facility] Comment on above: Performed By: #### U [id number] #### [facility] (DEFAULT) [address] [place] [address] Urea nitrogen [Mass/Vol] 16 mg/dL Normal 7-25 [facility] Comment on above: Performed By: #### U [id number] #### [facility] (DEFAULT) [address] [place] [address] Urea nitrogen/Creatinine [Mass ratio] 24 mg/mg Normal [facility] Comment on above: Performed By: #### U [id number] #### [facility] (DEFAULT) [address] [place] [address] Anion gap [Moles/Vol] 8 mmol/L 7 - 17 mmol/L [facility] Chloride [Moles/Vol] 99 mmol/L 98 - 10 8 mmol/L [facility] CO2 [Moles/Vol] 39 mmol/L High 21 - 31 mmol/L [facility] Creatinine [Mass/Vol] 0.66 mg/dL Low 0.70 - 1.30 mg/dL [facility] eGFR, CKD-EPI, Male - PINF [facility] Glucose [Mass/Vol] 143 mg/dL 70 - 179 mg/dL [facility] Interpretation and review of laboratory results Abnormal [facility] Osmolality Calc [Osmolality] 300 [facility] Potassium [Moles/Vol] 3.8 mmol/L 3.5 - 5.0 mmol/L [facility] Sodium [Moles/Vol] 142 mmol/L 135 - 145 mmol/L [facility] Urea nitrogen [Mass/Vol] 16 mg/dL 7 - 25 mg/d [facility] Urea nitrogen/Creatinine [Mass ratio] 24 mg/mg [facility] Anion gap [Moles/Vol] 8 mmol/L Normal 7-17 [facility] Comment on above: Performed By: #### V ANCTR #### [facility] (DEFAULT) [address] [place] [address] Chloride [Moles/Vol] 99 mmol/L Normal 98-108 [facility] Comment on above: Performed By: #### V ANCTR #### [facility] (DEFAULT) [address] [place] [address] CO2 [Moles/Vol] 39 mmol/L High 21-31 [facility] Comment on above: Performed By: #### V ANCTR #### [facility] (DEFAULT) [address] [place] [address] Creatinine [Mass/Vol] 0.66 mg/dL Low 0.70-1.30 [facility] Comment on above: Performed By: #### V ANCTR #### [facility] (DEFAULT) [address] [place] [address] eGFR, CKD-EPI, Male > Normal >=60 [facility] Comment on above: Result Comment: Repo rted eGFR is based on the CKD-EPI 2020 equation using creatinine, age, and sex. Performed By: #### V ANCTR #### [facility] (DEFAULT) [address] [place] [address] Glucose [Mass/Vol] 143 mg/dL Normal Nonfastin -179 mg/dL; Fastin-99 [facility] Comment on above: Performed By: #### V ANCTR #### [facility] (DEFAULT) [address] [place] [address] Osmolality [Osmolality] 300 mosm/kg Normal 278-305 [facility] Comment on above: Performed By: #### V ANCTR #### [facility] (DEFAULT) [address] [place] [address] Potassium [Moles/Vol] 3.8 mmol/L Normal 3.5-5.0 [facility] Comment on above: Performed By: #### V ANCTR #### [facility] (DEFAULT) [address] [place] [address], [place] [address] Sodium [Moles/Vol] 142 mmol/L Normal 135-145 [facility] Comment on above: Performed By: #### V ANCTR #### [facility] (DEFAULT) [address] [place] [address] Urea nitrogen [Mass/Vol] 16 mg/dL Normal 7-25 [facility] Comment on above: Performed By: #### V ANCTR #### [facility] (DEFAULT) [address] [place] [address] Urea nitrogen/Creatinine [Mass ratio] 24 mg/mg Normal [facility] Comment on above: Performed By: #### V ANCTR #### [facility] (DEFAULT) [address] [place] [address] HEAD WITHOUT CONTRASTon 0 10-20-2024 CT [...] increasing mass effect or midline shift. Normal [facility] CT Head WO contraston 2024 RADIOLOGY RADIOLOGY [facility] Radiology Study observation (narrative) [facility] CT Head WO contrastOrdered B y: Saqib Irby on 10-20-2024 [facility] Work Phone: IONIZED CALCIUM, SERUMOrdere d By: Anitra Carlos on 10-20-2024 Calcium.ionized (Bld) [Moles/Vol] 4.85 mg/dL 4.60 - 5.30 mg/dL [facility] Interpretation and review of laboratory results Normal [facility] IONIZED CALCIUM, SERUMon ICA 4.85 mg/dL Normal 4.60-5.30 [facility] Comment on above: Performed By: #### T YPEC #### [facility] (DEFAULT) [address] [place] [address] MAGNESIUMon 10-20-2024 Magnesium [Mass/Vol] 1.8 mg/dL 1.6 - 2 .6 mg/dL [facility] Magnesium [Mass/Vol] 1.8 mg/dL Normal 1.6-2.6 [facility] Comment on above: Performed By: #### V ANCTR #### [facility] (DEFAULT) [address] [place] [address] No Panel Informationon 10-20 Interpretation and review of laboratory results Normal [facility] PHOSPHATE, INORGANICon 10-20 Phosphate [Mass/Vol] 3.3 mg/dL 2.2 - 4 .6 mg/dL [facility] Phosphorous 3.3 mg/dL Normal 2.2-4.6 [facility] Comment on above: Performed By: #### V ANCTR #### [facility] (DEFAULT) [address] [place] [address] Portable XR Chest Viewson RADIOLOGY RADIOLOGY [facility] Radiology Study observation (narrative) [facility] Portable XR Chest ViewsOrder ed By: Beni Rivera on 10-20-2024 [facility] Work Phone: VANCOMYCIN LEVEL, TROUGH (NE E DRUG LEVEL)on 10-20-2024 Interpretation and review of laboratory results Abnormal [facility] Vancomycin trough [Mass/Vol] 20.1 ug/mL High [facility] Vancomycin, Trough 20.1 mcg/mL High Therapeut ic Range: 10.0-20.0 mcg/mL [facility] Comment on above: Order Comment: Pleas e draw level at specified interval PRIOR to next dose. Please hold next dose if level > 20 Performed By: #### X M #### [facility] (DEFAULT) [address] [place] [address] XR CHEST 1 VIEW PORTABLEon 0 10-20-2024 [...] appreciable change since the prior study. Normal [facility] ANTI XA LMWH (ENOXAPARIN),*E XACT TIME REQUIRED* 4 HR POSTOrdered By: Sally Zaragoza on 10-19-2024 Interpretation and review of laboratory results Abnormal [facility] LMW Heparin Chromogenic method Qn (PPP) 0.41 Low [facility] ANTI XA LMWH (ENOXAPARIN),*E XACT TIME REQUIRED* 4 HR Janice 10-19-2024 Anti Xa LMWH (Enoxaparin) 4 Hr Post 0.41 Anti-Xa IU/mL Low 0.60-1.00 [facility] Comment on above: Order Comment: Pleas e draw level at specified interval PRIOR to next dose. Result Comment: Ther apeutic range applies to 4 hour post dose collections. Performed By: #### V ANCTR #### [facility] (DEFAULT) [address] [place] [address] ARTERIAL BLOOD GASon 025 Base excess Calc (Bld) [Moles/Vol] 18.6 mmol/L High -3.0 - 3.0 mmol/L [facility] CO2 (Bld) [Partial pressure] 63 mm[Hg] [facility] HCO3 (Bld) [Moles/Vol] 43 mmol/L High 22 - 28 mmol/L [facility] Interpretation and review of laboratory results Abnormal [facility] Oxygen (Bld) [Partial pressure] 78 mm[Hg] Low [facility] Oxygen saturation in Blood 98 % 94 - 98 % [facility] pH (Bld) 7.44 [pH] 7.35 - 7.45 [facility] Specimen source Nom (Unsp spec) Arterial [facility] Base Excess 18.6 mmol/L High -3.0-3.0 [facility] Comment on above: Performed By: #### X M #### [facility] (DEFAULT) [address] [place] [address] HCO3 (Bld) [Moles/Vol] 43 mmol/L High 22-28 [facility] Comment on above: Performed By: #### X M #### [facility] (DEFAULT) [address] [place] [address] Oxygen saturation in Blood 98 % Normal 94-98 [facility] Comment on above: Performed By: #### X M #### [facility] (DEFAULT) [address] [place] [address] pCO2 63 mm Hg High 32-48 [facility] Comment on above: Performed By: #### X M #### [facility] (DEFAULT) [address] [place] [address]793 pH, Arterial 7.44 Normal 7.35-7.45 [facility] Comment on above: Performed By: #### X M #### [facility] (DEFAULT) [address] [place] [address] pO2 78 mm Hg Low 83-108 [facility] Comment on above: Performed By: #### X M #### [facility] (DEFAULT) [address] [place] [address] Specimen type Nom (Spec) Arterial Normal [facility] Comment on above: Performed By: #### X M #### [facility] (DEFAULT) [address] [place] [address] Base excess Calc (Bld) [Moles/Vol] 13.6 mmol/L High -3.0 - 3.0 mmol/L [facility] CO2 (Bld) [Partial pressure] 62 mm[Hg] High [facility] HCO3 (Bld) [Moles/Vol] 38 mmol/L High 22 - 28 mmol/L [facility] Inhaled oxygen concentration [facility] Interpretation and review of laboratory results Abnormal [facility] Oxygen (Bld) [Partial pressure] 75 mm[Hg] Low [facility] Oxygen saturation in Blood 97 % 94 - 98 % [facility] pH (Bld) 7.4 [pH] 7.35 - 7.45 [facility] Specimen source Nom (Unsp spec) Arterial [facility] Base Excess 13.6 mmol/L High -3.0-3.0 [facility] Comment on above: Performed By: #### G AS5 #### [facility] (DEFAULT) [address] [place] [address] FIO2 Normal [facility] Comment on above: Result Comment: 2L N C Performed By: #### G AS5 #### [facility] (DEFAULT) [address] [place] [address] HCO3 (Bld) [Moles/Vol] 38 mmol/L High 22-28 [facility] Comment on above: Performed By: #### G AS5 #### [facility] (DEFAULT) [address] [place] [address] Oxygen saturation in Blood 97 % Normal 94-98 [facility] Comment on above: Performed By: #### G AS5 #### [facility] (DEFAULT) [address] [place] [address] 36315 pCO2 62 mm Hg High 32-48 [facility] Comment on above: Performed By: #### G AS5 #### [facility] (DEFAULT) [address] [place] [address] 84071 pH, Arterial 7.40 Normal 7.35-7.45 [facility] Comment on above: Performed By: #### G AS5 #### [facility] (DEFAULT) [address] [place] [address] pO2 75 mm Hg Low 83-108 [facility] Comment on above: Performed By: #### G AS5 #### [facility] (DEFAULT) [address] [place] [address] Specimen type Nom (Spec) Arterial Normal [facility] Comment on above: Performed By: #### G AS5 #### [facility] (DEFAULT) [address] [place] [address] CBC,PLATELETSon 10-19-2024 Erythrocyte distribution width (RBC) [Ratio] 13.3 % 10.9 - 14.3 % [facility] Hematocrit (Bld) [Volume fraction] 35.8 % Low 39.6 - 48.8 % [facility] Hemoglobin (Bld) [Mass/Vol] 11.3 g/dL Low 13.4 - 16.8 g/dL [facility] Interpretation and review of laboratory results Abnormal [facility] MCH (RBC) [Entitic mass] 26.5 pg 26. 1 - 33.3 pg [facility] MCHC (RBC) [Mass/Vol] 31.6 g/dL Low 31.9 - 36.5 g/dL [facility] MCV (RBC) [Entitic vol] 84 fL 79.0 - 94.5 fL [facility] Platelet mean volume (Bld) [Entitic vol] 9.1 fL 8.7 - 12.3 fL [facility] Platelets (Bld) [#/Vol] 250 10*3/uL 146 - 337 K/uL [facility] RBC (Bld) [#/Vol] 4.26 10*6/uL Low [facility] WBC (Bld) [#/Vol] 8.75 10*3/uL 3.73 - 10. 10 K/uL [facility] Hematocrit (Bld) [Volume fraction] 35.8 % Low 39.6-48.8 [facility] Comment on above: Performed By: #### T YPEC #### [facility] (DEFAULT) [address] [address] Hemoglobin (Bld) [Mass/Vol] 11.3 g/dL Low 13.4-16.8 [facility] Comment on above: Performed By: #### T YPEC #### [facility] (DEFAULT) [address] [address] MCV (RBC) [Entitic vol] 84.0 fL Normal 79.0-94.5 [facility] Comment on above: Performed By: #### T YPEC #### [facility] (DEFAULT) [address] [place] [address] Mean Cell Hgb 26.5 pg Normal 26.1-33.3 [facility] Comment on above: Performed By: #### T YPEC #### [facility] (DEFAULT) [address] [address] Mean Cell Hgb Conc 31.6 g/dL Low 31.9-36.5 [facility] Comment on above: Performed By: #### T YPEC #### [facility] (DEFAULT) [address] [place] [address] Platelet mean volume (Bld) [Entitic vol] 9.1 fL Normal 8.7-12.3 [facility] Comment on above: Performed By: #### T YPEC #### [facility] (DEFAULT) [address] [place] [address] Platelets (Bld) [#/Vol] 250 10*3/uL Normal 146-337 [facility] Comment on above: Performed By: #### T YPEC #### [facility] (DEFAULT) [address] [place] [address] RBC (Bld) [#/Vol] 4.26 10*6/uL Low 4.38-5.83 [facility] Comment on above: Performed By: #### T YPEC #### [facility] (DEFAULT) [address] [place] [address] 01375 RBC Distribution 13.3 % Normal 10.9-14.3 [facility] Comment on above: Performed By: #### T YPEC #### [facility] (DEFAULT) [address] [place] [address]2296 WBC (Bld) [#/Vol] 8.75 10*3/uL Normal 3.73-10.10 [facility] Comment on above: Performed By: #### T YPEC #### [facility] (DEFAULT) [address] [place] [address] [id number] CHEM 7 (LYTES,BUN,CREA,GLUC) on 10-19-2024 Anion gap [Moles/Vol] 11 mmol/L 7 - 17 mmol/L [facility] Chloride [Moles/Vol] 96 mmol/L Low 98 - 10 8 mmol/L [facility] CO2 [Moles/Vol] 37 mmol/L High 21 - 31 mmol/L [facility] Creatinine [Mass/Vol] 0.66 mg/dL Low 0.70 - 1.30 mg/dL [facility] eGFR, CKD-EPI, Male - PINF [facility] Glucose [Mass/Vol] 177 mg/dL 70 - 179 mg/dL [facility] Interpretation and review of laboratory results Abnormal [facility] Osmolality Calc [Osmolality] 298 [facility] Potassium [Moles/Vol] 3.8 mmol/L 3.5 - 5.0 mmol/L [facility] Sodium [Moles/Vol] 140 mmol/L 135 - 145 mmol/L [facility] Urea nitrogen [Mass/Vol] 14 mg/dL 7 - 25 mg/d L [facility] Urea nitrogen/Creatinine [Mass ratio] 21 mg/mg [facility] Anion gap [Moles/Vol] 11 mmol/L Normal 7-17 [facility] Comment on above: Performed By: #### Y NTBNP #### [facility] (DEFAULT) [address] [place] [address] Chloride [Moles/Vol] 96 mmol/L Low 98-108 [facility] Comment on above: Performed By: #### Y NTBNP #### [facility] (DEFAULT) [address] [place] [address] 10378 CO2 [Moles/Vol] 37 mmol/L High 21-31 [facility] Comment on above: Performed By: #### Y NTBNP #### [facility] (DEFAULT) [address] [place] [address] 51138 Creatinine [Mass/Vol] 0.66 mg/dL Low 0.70-1.30 [facility] Comment on above: Performed By: #### Y NTBNP #### [facility] (DEFAULT) [address] [place] [address] 00692 eGFR, CKD-EPI, Male > Normal >=60 [facility] Comment on above: Result Comment: Repo rted eGFR is based on the CKD-EPI 2020 equation using creatinine, age, and sex. Performed By: #### Y NTBNP #### [facility] (DEFAULT) [address] [place] [address]39 Glucose [Mass/Vol] 177 mg/dL Normal Nonfastin -179 mg/dL; Fastin-99 [facility] Comment on above: Performed By: #### Y NTBNP #### [facility] (DEFAULT) [address] [place] [address] 92011 Osmolality [Osmolality] 298 mosm/kg Normal 278-305 [facility] Comment on above: Performed By: #### Y NTBNP #### [facility] (DEFAULT) [address] [place] [address] 68219 Potassium [Moles/Vol] 3.8 mmol/L Normal 3.5-5.0 [facility] Comment on above: Performed By: #### Y NTBNP #### [facility] (DEFAULT) [address] [place] [address] 95820 Sodium [Moles/Vol] 140 mmol/L Normal 135-145 [facility] Comment on above: Performed By: #### Y NTBNP #### [facility] (DEFAULT) [address] [place] [address] 86436 Urea nitrogen [Mass/Vol] 14 mg/dL Normal 7-25 [facility] Comment on above: Performed By: #### Y NTBNP #### [facility] (DEFAULT) [address] [place] [address] 22365 Urea nitrogen/Creatinine [Mass ratio] 21 mg/mg Normal [facility] Comment on above: Performed By: #### Y NTBNP #### [facility] (DEFAULT) [address] [place] [address] 35423 Anion gap [Moles/Vol] 10 mmol/L 7 - 17 mmol/L [facility] Chloride [Moles/Vol] 100 mmol/L 98 - 10 8 mmol/L [facility] CO2 [Moles/Vol] 37 mmol/L High 21 - 31 mmol/L [facility] Creatinine [Mass/Vol] 0.6 mg/dL Low 0.70 - 1.30 mg/dL [facility] eGFR, CKD-EPI, Male - PINF [facility] Glucose [Mass/Vol] 138 mg/dL 70 - 179 mg/dL [facility] Interpretation and review of laboratory results Abnormal [facility] Osmolality Calc [Osmolality] 300 [facility] Potassium [Moles/Vol] 3.5 mmol/L 3.5 - 5.0 mmol/L [facility] Sodium [Moles/Vol] 143 mmol/L 135 - 145 mmol/L [facility] Urea nitrogen [Mass/Vol] 12 mg/dL 7 - 25 mg/d L [facility] Urea nitrogen/Creatinine [Mass ratio] 20 mg/mg [facility] Anion gap [Moles/Vol] 10 mmol/L Normal 7-17 [facility] Comment on above: Performed By: #### U [id number] #### [facility] (DEFAULT) [address] [place] [address] 03233 Chloride [Moles/Vol] 100 mmol/L Normal 98-108 [facility] Comment on above: Performed By: #### U [id number] #### [facility] (DEFAULT) [address] [place] [address] 60361 CO2 [Moles/Vol] 37 mmol/L High 21-31 [facility] Comment on above: Performed By: #### U [id number] #### [facility] (DEFAULT) [address] [place] [address] 98053 Creatinine [Mass/Vol] 0.60 mg/dL Low 0.70-1.30 [facility] Comment on above: Performed By: #### U [id number] #### [facility] (DEFAULT) [address] [place] [address] 46836 eGFR, CKD-EPI, Male > Normal >=60 [facility] Comment on above: Result Comment: Repo rted eGFR is based on the CKD-EPI 2020 equation using creatinine, age, and sex. Performed By: #### U [id number] #### [facility] (DEFAULT) [address] [place] [address] 66608 Glucose [Mass/Vol] 138 mg/dL Normal Nonfastin -179 mg/dL; Fastin-99 [facility] Comment on above: Performed By: #### U [id number] #### [facility] (DEFAULT) [address] [place] [address] Osmolality [Osmolality] 300 mosm/kg Normal 278-305 [facility] Comment on above: Performed By: #### U [id number] #### [facility] (DEFAULT) [address] [place] [address] 75047 Potassium [Moles/Vol] 3.5 mmol/L Normal 3.5-5.0 [facility] Comment on above: Performed By: #### U [id number] #### [facility] (DEFAULT) [address] [place] [address] 50713 Sodium [Moles/Vol] 143 mmol/L Normal 135-145 [facility] Comment on above: Performed By: #### U [id number] #### [facility] (DEFAULT) [address] [place] [address] 19495 Urea nitrogen [Mass/Vol] 12 mg/dL Normal 7-25 [facility] Comment on above: Performed By: #### U [id number] #### [facility] (DEFAULT) [address] [place] [address] 91963 Urea nitrogen/Creatinine [Mass ratio] 20 mg/mg Normal [facility] Comment on above: Performed By: #### U [id number] #### [facility] (DEFAULT) [address] [place] [address] 56474 CYSTATIN C AND CREATININE WI ESTIMATED GFRon 10-19-2024 Creatinine [Mass/Vol] 0.55 mg/dL Low 0.70 - 1.30 mg/dL [facility] Cystatin C 1.68 mg/L High 0.51 - 1.05 mg/L [facility] EGFR BY CYS C AND CREATININE, MALE 62 - PINF [facility] Interpretation and review of laboratory results Abnormal [facility] Creatinine [Mass/Vol] 0.55 mg/dL Low 0.70-1.30 [facility] Comment on above: Performed By: #### U [id number] #### [facility] (DEFAULT) [address] [place] [address] Cystatin C 1.68 mg/L High 0.51-1.05 [facility] Comment on above: Performed By: #### U [id number] #### [facility] (DEFAULT) [address] [place] [address] EGFR BY CYS C AND CREATININE, MALE 62 mL/min/1.73m2 Normal >=60 [facility] Comment on above: Result Comment: Repo rted eGFR is based on the CKD-EPI 2020 equation using cystatin C, creatinine, age, and sex. Performed By: #### U [id number] #### [facility] (DEFAULT) [address] [place] [address] 14820 GLUCOSE POCon 10-19-2024 Glucose [Mass/Vol] 149 mg/dL 70 - 179 mg/dL [facility] POC Sample Type CAPBL [facility] Glucose [Mass/Vol] 176 mg/dL 70 - 179 mg/dL [facility] Glucose [Mass/Vol] 185 mg/dL High 70 - 179 mg/dL [facility] Interpretation and review of laboratory results Abnormal [facility] POC Sample Type CAPBL [facility] POC Sample Type ARTER [facility] Glucose [Mass/Vol] 110 mg/dL 70 - 179 mg/dL [facility] POC Sample Type CAPBL [facility] Glucose [Mass/Vol] 186 mg/dL High 70 - 179 mg/dL [facility] Glucose [Mass/Vol] 236 mg/dL High 70 - 179 mg/dL [facility] Glucose [Mass/Vol] 143 mg/dL 70 - 179 mg/dL [facility] IONIZED CALCIUM, SERUMOrdere d By: Jyothi Cantu on 10-19-2024 Calcium.ionized (Bld) [Moles/Vol] 4.85 mg/dL 4.60 - 5.30 mg/dL [facility] Interpretation and review of laboratory results Normal [facility] IONIZED CALCIUM, SERUMon ICA 4.85 mg/dL Normal 4.60-5.30 [facility] Comment on above: Performed By: #### X M #### [facility] (DEFAULT) [address] [address] MAGNESIUMon 10-19-2024 Magnesium [Mass/Vol] 2 mg/dL 1.6 - 2 .6 mg/dL [facility] Magnesium [Mass/Vol] 2.0 mg/dL Normal 1.6-2.6 [facility] Comment on above: Performed By: #### B LDCULT #### [facility] (DEFAULT) [address] [place] [address] 07645 NT-PRO B-TYPE NATRIURETIC PE PTIDEon 10-19-2024 Interpretation and review of laboratory results Normal [facility] Natriuretic peptide.B prohormone N-Terminal IA [Mass/Vol] 473 pg/mL NINF - 540 pg/mL [facility] Natriuretic peptide B (Bld) [Mass/Vol] 473 pg/mL Normal <=540 [facility] Comment on above: Performed By: #### Y NTBNP #### [facility] (DEFAULT) [address] [address] No Panel Informationon 10-19 [facility] Interpretation and review of laboratory results Abnormal [facility] POC Sample Type CAPBL [facility] Interpretation and review of laboratory results Normal [facility] PHOSPHATE, INORGANICon 10-19 Phosphate [Mass/Vol] 3.3 mg/dL 2.2 - 4 .6 mg/dL [facility] Phosphorous 3.3 mg/dL Normal 2.2-4.6 [facility] Comment on above: Performed By: #### U [id number] #### [facility] (DEFAULT) [address] [address] Portable XR Chest Viewson RADIOLOGY RADIOLOGY [facility] Radiology Study observation (narrative) [facility] Portable XR Chest ViewsOrder ed By: Nina Morris on 10-19-2024 [facility] Work Phone: SCREEN: MRSA/MSSAOrdered By: Nils Valencia on 10-19-2024 Interpretation and review of laboratory results Normal [facility] Methicillin Resistant S. Aureus By Pcr Negative Negative [facility] Staphylococcus Aureus By Pcr Negative Negative [facility] Wound Cultureon 10-19-2024 WC Normal [facility] Comment on above: Performed By: #### M 100.2000, M100.3000, M100.4001 ####[facility] [id number] [place], [place], [id number] XR CHEST 1 VIEW PORTABLEon 0 10-19-2024 [...] have reviewed and approved this report. Normal [facility] ARTERIAL BLOOD GASon 05-01-2 025 Base excess Calc (Bld) [Moles/Vol] 7.7 mmol/L High -3.0 - 3.0 mmol/L [facility] CO2 (Bld) [Partial pressure] 54 mm[Hg] High [facility] HCO3 (Bld) [Moles/Vol] 33 mmol/L High 22 - 28 mmol/L [facility] Interpretation and review of laboratory results Abnormal [facility] Oxygen (Bld) [Partial pressure] 73 mm[Hg] Low [facility] Oxygen saturation in Blood 96 % 94 - 98 % [facility] pH (Bld) 7.39 [pH] 7.35 - 7.45 [facility] Specimen source Nom (Unsp spec) Arterial [facility] Base Excess 7.7 mmol/L High -3.0-3.0 [facility] Comment on above: Performed By: #### X M #### [facility] (DEFAULT) [address] [address] HCO3 (Bld) [Moles/Vol] 33 mmol/L High 22-28 [facility] Comment on above: Performed By: #### X M #### [facility] (DEFAULT) [address] [address] Oxygen saturation in Blood 96 % Normal 94-98 [facility] Comment on above: Performed By: #### X M #### [facility] (DEFAULT) [address] [address] pCO2 54 mm Hg High 32-48 [facility] Comment on above: Performed By: #### X M #### [facility] (DEFAULT) [address] [address] pH, Arterial 7.39 Normal 7.35-7.45 [facility] Comment on above: Performed By: #### X M #### [facility] (DEFAULT) [address] [address] pO2 73 mm Hg Low 83-108 [facility] Comment on above: Performed By: #### X M #### [facility] (DEFAULT) [address] [place] [address] 18997 Specimen type Nom (Spec) Arterial Normal [facility] Comment on above: Performed By: #### X M #### [facility] (DEFAULT) [address] [place] [address] CBC,PLATELETSon 10-18-2024 Erythrocyte distribution width (RBC) [Ratio] 13.3 % 10.9 - 14.3 % [facility] Hematocrit (Bld) [Volume fraction] 34.5 % Low 39.6 - 48.8 % [facility] Hemoglobin (Bld) [Mass/Vol] 11.2 g/dL Low 13.4 - 16.8 g/dL [facility] Interpretation and review of laboratory results Abnormal [facility] MCH (RBC) [Entitic mass] 26.7 pg 26. 1 - 33.3 pg [facility] MCHC (RBC) [Mass/Vol] 32.5 g/dL 31.9 - 36.5 g/dL [facility] MCV (RBC) [Entitic vol] 82.1 fL 79.0 - 94.5 fL [facility] Platelet mean volume (Bld) [Entitic vol] 9.2 fL 8.7 - 12.3 fL [facility] Platelets (Bld) [#/Vol] 259 10*3/uL 146 - 337 K/uL [facility] RBC (Bld) [#/Vol] 4.2 10*6/uL Low [facility] WBC (Bld) [#/Vol] 9.62 10*3/uL 3.73 - 10. 10 K/uL [facility] Hematocrit (Bld) [Volume fraction] 34.5 % Low 39.6-48.8 [facility] Comment on above: Performed By: #### U [id number] #### [facility] (DEFAULT) [address] [place] [address] Hemoglobin (Bld) [Mass/Vol] 11.2 g/dL Low 13.4-16.8 [facility] Comment on above: Performed By: #### U [id number] #### [facility] (DEFAULT) [address] [place] [address] 81601 MCV (RBC) [Entitic vol] 82.1 fL Normal 79.0-94.5 [facility] Comment on above: Performed By: #### U [id number] #### [facility] (DEFAULT) [address] [place] [address] 35523 Mean Cell Hgb 26.7 pg Normal 26.1-33.3 [facility] Comment on above: Performed By: #### U [id number] #### [facility] (DEFAULT) [address] [place] [address] 79585 Mean Cell Hgb Conc 32.5 g/dL Normal 31.9-36.5 [facility] Comment on above: Performed By: #### U [id number] #### [facility] (DEFAULT) [address] [place] [address] 51729 Platelet mean volume (Bld) [Entitic vol] 9.2 fL Normal 8.7-12.3 [facility] Comment on above: Performed By: #### U [id number] #### [facility] (DEFAULT) [address] [place] [address] 74726 Platelets (Bld) [#/Vol] 259 10*3/uL Normal 146-337 [facility] Comment on above: Performed By: #### U [id number] #### [facility] (DEFAULT) [address] [place] [address] 53179 RBC (Bld) [#/Vol] 4.20 10*6/uL Low 4.38-5.83 [facility] Comment on above: Performed By: #### U [id number] #### [facility] (DEFAULT) [address] [place] [address] 28781 RBC Distribution 13.3 % Normal 10.9-14.3 [facility] Comment on above: Performed By: #### U [id number] #### [facility] (DEFAULT) [address] [place] [address] WBC (Bld) [#/Vol] 9.62 10*3/uL Normal 3.73-10.10 [facility] Comment on above: Performed By: #### U [id number] #### [facility] (DEFAULT) [address] [place] [address] CHEM 7 (LYTES,BUN,CREA,GLUC) on 10-18-2024 Anion gap [Moles/Vol] 10 mmol/L 7 - 17 mmol/L [facility] Chloride [Moles/Vol] 102 mmol/L 98 - 10 8 mmol/L [facility] CO2 [Moles/Vol] 34 mmol/L High 21 - 31 mmol/L [facility] Creatinine [Mass/Vol] 0.58 mg/dL Low 0.70 - 1.30 mg/dL [facility] eGFR, CKD-EPI, Male - PINF [facility] Glucose [Mass/Vol] 187 mg/dL High 70 - 179 mg/dL [facility] Interpretation and review of laboratory results Abnormal [facility] Osmolality Calc [Osmolality] 302 [facility] Potassium [Moles/Vol] 3.8 mmol/L 3.5 - 5.0 mmol/L [facility] Sodium [Moles/Vol] 142 mmol/L 135 - 145 mmol/L [facility] Urea nitrogen [Mass/Vol] 13 mg/dL 7 - 25 mg/d L [facility] Urea nitrogen/Creatinine [Mass ratio] 22 mg/mg [facility] Anion gap [Moles/Vol] 10 mmol/L Normal 7-17 [facility] Comment on above: Performed By: #### V ANCTR #### [facility] (DEFAULT) [address] [place] [address] Chloride [Moles/Vol] 102 mmol/L Normal 98-108 [facility] Comment on above: Performed By: #### V ANCTR #### [facility] (DEFAULT) [address] [place] [address] CO2 [Moles/Vol] 34 mmol/L High 21-31 [facility] Comment on above: Performed By: #### V ANCTR #### [facility] (DEFAULT) [address] [place] [address] 9[address]00 Creatinine [Mass/Vol] 0.58 mg/dL Low 0.70-1.30 [facility] Comment on above: Performed By: #### V ANCTR #### [facility] (DEFAULT) [address] [address] eGFR, CKD-EPI, Male > Normal >=60 [facility] Comment on above: Result Comment: Repo rted eGFR is based on the CKD-EPI 2020 equation using creatinine, age, and sex. Performed By: #### V ANCTR #### [facility] (DEFAULT) [address] [place] [address] Glucose [Mass/Vol] 187 mg/dL High Nonfastin -179 mg/dL; Fastin-99 [facility] Comment on above: Performed By: #### V ANCTR #### [facility] (DEFAULT) [address] [place] [address] Osmolality [Osmolality] 302 mosm/kg Normal 278-305 [facility] Comment on above: Performed By: #### V ANCTR #### [facility] (DEFAULT) [address] [place] [address]99 Potassium [Moles/Vol] 3.8 mmol/L Normal 3.5-5.0 [facility] Comment on above: Performed By: #### V ANCTR #### [facility] (DEFAULT) [address] [place] [address]141 Sodium [Moles/Vol] 142 mmol/L Normal 135-145 [facility] Comment on above: Performed By: #### V ANCTR #### [facility] (DEFAULT) [address] [place] [address] Urea nitrogen [Mass/Vol] 13 mg/dL Normal 7-25 [facility] Comment on above: Performed By: #### V ANCTR #### [facility] (DEFAULT) [address] [place] [address] Urea nitrogen/Creatinine [Mass ratio] 22 mg/mg Normal [facility] Comment on above: Performed By: #### V ANCTR #### [facility] (DEFAULT) [address] [place] [address] Anion gap [Moles/Vol] 12 mmol/L 7 - 17 mmol/L [facility] Chloride [Moles/Vol] 103 mmol/L 98 - 10 8 mmol/L [facility] CO2 [Moles/Vol] 29 mmol/L 21 - 31 mmol/L [facility] Creatinine [Mass/Vol] 0.52 mg/dL Low 0.70 - 1.30 mg/dL [facility] eGFR, CKD-EPI, Male - PINF [facility] Glucose [Mass/Vol] 245 mg/dL High 70 - 179 mg/dL [facility] Interpretation and review of laboratory results Abnormal [facility] Osmolality Calc [Osmolality] 302 [facility] Potassium [Moles/Vol] 3.9 mmol/L 3.5 - 5.0 mmol/L [facility] Sodium [Moles/Vol] 140 mmol/L 135 - 145 mmol/L [facility] Urea nitrogen [Mass/Vol] 12 mg/dL 7 - 25 mg/d L [facility] Urea nitrogen/Creatinine [Mass ratio] 23 mg/mg [facility] Anion gap [Moles/Vol] 12 mmol/L Normal 7-17 [facility] Comment on above: Performed By: #### B LDCULT #### [facility] (DEFAULT) [address] [place] [address] Chloride [Moles/Vol] 103 mmol/L Normal 98-108 [facility] Comment on above: Performed By: #### B LDCULT #### [facility] (DEFAULT) [address] [place] [address] CO2 [Moles/Vol] 29 mmol/L Normal 21-31 [facility] Comment on above: Performed By: #### B LDCULT #### [facility] (DEFAULT) [address] [place] [address] Creatinine [Mass/Vol] 0.52 mg/dL Low 0.70-1.30 [facility] Comment on above: Performed By: #### B LDCULT #### [facility] (DEFAULT) [address] [place] [address] eGFR, CKD-EPI, Male > Normal >=60 [facility] Comment on above: Result Comment: Repo rted eGFR is based on the CKD-EPI 2020 equation using creatinine, age, and sex. Performed By: #### B LDCULT #### [facility] (DEFAULT) [address] [place] [address] Glucose [Mass/Vol] 245 mg/dL High Nonfastin -179 mg/dL; Fastin-99 [facility] Comment on above: Performed By: #### B LDCULT #### [facility] (DEFAULT) [address] [place] [address]83 Osmolality [Osmolality] 302 mosm/kg Normal 278-305 [facility] Comment on above: Performed By: #### B LDCULT #### [facility] (DEFAULT) [address] [place] [address] Potassium [Moles/Vol] 3.9 mmol/L Normal 3.5-5.0 [facility] Comment on above: Performed By: #### B LDCULT #### [facility] (DEFAULT) [address] [place] [address] Sodium [Moles/Vol] 140 mmol/L Normal 135-145 [facility] Comment on above: Performed By: #### B LDCULT #### [facility] (DEFAULT) [address] [place] [address] Urea nitrogen [Mass/Vol] 12 mg/dL Normal 7-25 [facility] Comment on above: Performed By: #### B LDCULT #### [facility] (DEFAULT) [address] [place] [address] Urea nitrogen/Creatinine [Mass ratio] 23 mg/mg Normal [facility] Comment on above: Performed By: #### B LDCULT #### [facility] (DEFAULT) [address] [place] [address] CT HEAD WITHOUT CONTRASTon 0 10-18-2024 CT [...] in the left temporal occipital lobes Normal [facility] CT Head WO contraston 2024 RADIOLOGY RADIOLOGY [facility] Radiology Study observation (narrative) [facility] CT Head WO contrastOrdered B y: Annamarie Del Castillo on 10-18-2024 [facility] Work Phone: GLUCOSE POCon 10-18-2024 Glucose [Mass/Vol] 220 mg/dL High 70 - 179 mg/dL [facility] Glucose [Mass/Vol] 212 mg/dL High 70 - 179 mg/dL [facility] Glucose [Mass/Vol] 252 mg/dL High 70 - 179 mg/dL [facility] Interpretation and review of laboratory results Abnormal [facility] POC Sample Type ARTER [facility] Glucose [Mass/Vol] 219 mg/dL High 70 - 179 mg/dL [facility] Glucose [Mass/Vol] 236 mg/dL High 70 - 179 mg/dL [facility] Glucose [Mass/Vol] 244 mg/dL High 70 - 179 mg/dL [facility] POC Sample Type VENO [facility] IONIZED CALCIUM, SERUMOrdere d By: Sohan Lynn on 10-18-2024 Calcium.ionized (Bld) [Moles/Vol] 4.73 mg/dL 4.60 - 5.30 mg/dL [facility] Interpretation and review of laboratory results Normal [facility] IONIZED CALCIUM, SERUMon ICA 4.73 mg/dL Normal 4.60-5.30 [facility] Comment on above: Performed By: #### X M #### [facility] (DEFAULT) [address] [place] [address] MAGNESIUMon 10-18-2024 Magnesium [Mass/Vol] 2 mg/dL 1.6 - 2 .6 mg/dL [facility] Magnesium [Mass/Vol] 2.0 mg/dL Normal 1.6-2.6 [facility] Comment on above: Performed By: #### B LDCULT #### [facility] (DEFAULT) [address] [place] [address] No Panel Informationon 10-18 Interpretation and review of laboratory results Abnormal [facility] POC Sample Type ARTER [facility] Interpretation and review of laboratory results Abnormal [facility] POC Sample Type CAPBL [facility] Interpretation and review of laboratory results Normal [facility] PHOSPHATE, INORGANICon 10-18 Phosphate [Mass/Vol] 3.4 mg/dL 2.2 - 4 .6 mg/dL [facility] Phosphorous 3.4 mg/dL Normal 2.2-4.6 [facility] Comment on above: Performed By: #### B LDCULT #### [facility] (DEFAULT) [address] [address] PLATELET COUNTon 10-18-2024 Interpretation and review of laboratory results Normal [facility] Platelet mean volume (Bld) [Entitic vol] 9.2 fL 8.7 - 12.3 fL [facility] Platelets (Bld) [#/Vol] 256 10*3/uL 146 - 337 K/uL [facility] Platelet mean volume (Bld) [Entitic vol] 9.2 fL Normal 8.7-12.3 [facility] Comment on above: Performed By: #### C HM7 #### [facility] (DEFAULT) [address] [place] [address] Platelets (Bld) [#/Vol] 256 10*3/uL Normal 146-337 [facility] Comment on above: Performed By: #### C HM7 #### [facility] (DEFAULT) [address] [address] Portable XR Chest Viewson RADIOLOGY RADIOLOGY [facility] Radiology Study observation (narrative) [facility] SCREEN: MRSA/MSSAon 10-19-19 25 Methicillin Resistant S. Aureus By Pcr Negative Normal Negative [facility] Comment on above: Order Comment: Colle [...] by the Clinical Microbiology Laboratory at [facility]. It has not been cleared or approved by the FDA.The laboratory is regulated under CLIA as qualified to perform high-complexity testing. This test is used for clinical purposes. It should not be regarded as investigational or for research. Performed By: #### X M #### [facility] (DEFAULT) [address] [place] [address] Staphylococcus Aureus By Pcr Negative Normal Negative [facility] Comment on above: Order Comment: Colle [...] by the Clinical Microbiology Laboratory at [facility]. It has not been cleared or approved by the FDA.The laboratory is regulated under CLIA as qualified to perform high-complexity testing. This test is used for clinical purposes. It should not be regarded as investigational or for research. Performed By: #### X M #### [facility] (DEFAULT) [address] [place] [address] SODIUMon 10-18-2024 Interpretation and review of laboratory results Normal [facility] Sodium [Moles/Vol] 142 mmol/L 135 - 145 mmol/L [facility] Sodium [Moles/Vol] 142 mmol/L Normal 135-145 [facility] Comment on above: Order Comment: Pleas e collect 2 hrs s/p 3% NS bolus when given. Performed By: #### X M #### [facility] (DEFAULT) [address] [address] Interpretation and review of laboratory results Normal [facility] Sodium [Moles/Vol] 143 mmol/L 135 - 145 mmol/L [facility] Sodium [Moles/Vol] 143 mmol/L Normal 135-145 [facility] Comment on above: Order Comment: For i ndwelling catheters, specimen collection is acceptable on catheter day 1 and 2 only. ? Performed By: #### U [id number] #### [facility] (DEFAULT) [address] [address] VANCOMYCIN LEVEL, TROUGH (NE E DRUG LEVEL)on 10-18-2024 Interpretation and review of laboratory results Abnormal [facility] Vancomycin trough [Mass/Vol] 24.2 ug/mL High [facility] Vancomycin, Trough 24.2 mcg/mL High Therapeut ic Range: 10.0-20.0 mcg/mL [facility] Comment on above: Order Comment: Pleas e draw level 1 hour PRIOR to 1800 vancomycin dose. Performed By: #### C HM7 #### [facility] (DEFAULT) [address] [address] Wound Cultureon 10-18-2024 Normal [facility] Comment on above: Performed By: #### M 100.4001, M100.3000, M100.2000 ####[facility] [id number] [place], [address] XR CHEST 1 VIEW PORTABLEon 0 10-18-2024 [...] IMPRESSION: No major change, see above. Normal [facility] XR FOOT RIGHT 3+ VIEWSon XR [...] along the posterior superior calcaneal margin. Normal [facility] XR Foot - right 3 Viewson RADIOLOGY RADIOLOGY [facility] Radiology Study observation (narrative) [facility] XR Foot - right 3 ViewsOrder ed By: Rogelio Samuel on 10-18-2024 [facility] Work Phone: ARTERIAL BLOOD GASon 025 Base excess Calc (Bld) [Moles/Vol] 5.7 mmol/L High -3.0 - 3.0 mmol/L [facility] CO2 (Bld) [Partial pressure] 44 mm[Hg] [facility] HCO3 (Bld) [Moles/Vol] 30 mmol/L High 22 - 28 mmol/L [facility] Inhaled oxygen concentration 40 % [facility] Interpretation and review of laboratory results Abnormal [facility] Oxygen (Bld) [Partial pressure] 80 mm[Hg] Low [facility] Oxygen saturation in Blood 98 % 94 - 98 % [facility] PF Ratio 200 [facility] pH (Bld) 7.44 [pH] 7.35 - 7.45 [facility] Specimen source Nom (Unsp spec) Arterial [facility] Base Excess 5.7 mmol/L High -3.0-3.0 [facility] Comment on above: Performed By: #### X M #### [facility] (DEFAULT) [address] [place] [address] FIO2 40 % Normal [facility] Comment on above: Performed By: #### X M #### [facility] (DEFAULT) [address] [place] [address] HCO3 (Bld) [Moles/Vol] 30 mmol/L High 22-28 [facility] Comment on above: Performed By: #### X M #### [facility] (DEFAULT) [address] [place] [address] Oxygen saturation in Blood 98 % Normal 94-98 [facility] Comment on above: Performed By: #### X M #### [facility] (DEFAULT) [address] [place] [address] pCO2 44 mm Hg Normal 32-48 [facility] Comment on above: Performed By: #### X M #### [facility] (DEFAULT) [address] [place] [address] PF Ratio 200 Normal [facility] Comment on above: Performed By: #### X M #### [facility] (DEFAULT) [address] [place] [address] pH, Arterial 7.44 Normal 7.35-7.45 [facility] Comment on above: Performed By: #### X M #### [facility] (DEFAULT) [address] [place] [address] pO2 80 mm Hg Low 83-108 [facility] Comment on above: Performed By: #### X M #### [facility] (DEFAULT) [address] [place] [address] Specimen type Nom (Spec) Arterial Normal [facility] Comment on above: Performed By: #### X M #### [facility] (DEFAULT) [address] [place] [address] BETA-HYDROXYBUTYRATE, SERUMo n 10-17-2024 Beta hydroxybutyrate [Moles/Vol] 0.85 mmol/L High NINF - 0.27 mmol/L [facility] Interpretation and review of laboratory results Abnormal [facility] Beta Hydroxybutyrate 0.85 mmol/L High <0.27 [facility] Comment on above: Order Comment: This test has not been cleared or approved by the FDA. The laboratory is regulated under CLIA as qualified to perform high-complexity testing. This test is used for clinical purposes. It should not be regarded as investigational or for research. Result Comment: Beta -hydroxybutyrate >= 3.0 mmol/L is indicative of ketosis. Performed By: #### Y NTBNP #### [facility] (DEFAULT) [address] [place] [address] BLOOD CULTUREon 10-17-2024 Bacteria identified Cx Nom (Unsp spec) NO GROWTH DAY 5 OF 5 Normal [facility] Comment on above: Order Comment: 2 [...] bottle. Performed By: #### B LDCULT #### [facility] (DEFAULT) [address] [place] [address] Order Comment: 2 Bot tles (1 Set [...] bottle. Performed By: #### X M #### [facility] (DEFAULT) [address] [place] [address] CHEM 7 (LYTES,BUN,CREA,GLUC) on 10-17-2024 Anion gap [Moles/Vol] 15 mmol/L 7 - 17 mmol/L [facility] Chloride [Moles/Vol] 100 mmol/L 98 - 10 8 mmol/L [facility] CO2 [Moles/Vol] 27 mmol/L 21 - 31 mmol/L [facility] Creatinine [Mass/Vol] 0.46 mg/dL Low 0.70 - 1.30 mg/dL [facility] eGFR, CKD-EPI, Male - PINF [facility] Glucose [Mass/Vol] 252 mg/dL High 70 - 179 mg/dL [facility] Interpretation and review of laboratory results Abnormal [facility] Osmolality Calc [Osmolality] 299 [facility] Potassium [Moles/Vol] 4.3 mmol/L 3.5 - 5.0 mmol/L [facility] Sodium [Moles/Vol] 138 mmol/L 135 - 145 mmol/L [facility] Urea nitrogen [Mass/Vol] 12 mg/dL 7 - 25 mg/d L [facility] Urea nitrogen/Creatinine [Mass ratio] 26 mg/mg [facility] Anion gap [Moles/Vol] 15 mmol/L Normal 7-17 [facility] Comment on above: Performed By: #### U [id number] #### [facility] (DEFAULT) [address] [place] [address] Chloride [Moles/Vol] 100 mmol/L Normal 98-108 [facility] Comment on above: Performed By: #### U [id number] #### [facility] (DEFAULT) [address] [place] [address] CO2 [Moles/Vol] 27 mmol/L Normal 21-31 [facility] Comment on above: Performed By: #### U [id number] #### [facility] (DEFAULT) [address] [place] [address] Creatinine [Mass/Vol] 0.46 mg/dL Low 0.70-1.30 [facility] Comment on above: Performed By: #### U [id number] #### [facility] (DEFAULT) [address] [place] [address] eGFR, CKD-EPI, Male > Normal >=60 [facility] Comment on above: Result Comment: Repo rted eGFR is based on the CKD-EPI 2020 equation using creatinine, age, and sex. Performed By: #### U [id number] #### [facility] (DEFAULT) [address] [place] [address] Glucose [Mass/Vol] 252 mg/dL High Nonfastin -179 mg/dL; Fastin-99 [facility] Comment on above: Performed By: #### U [id number] #### [facility] (DEFAULT) [address] [place] [address] Osmolality [Osmolality] 299 mosm/kg Normal 278-305 [facility] Comment on above: Performed By: #### U [id number] #### [facility] (DEFAULT) [address] [place] [address] Potassium [Moles/Vol] 4.3 mmol/L Normal 3.5-5.0 [facility] Comment on above: Performed By: #### U [id number] #### [facility] (DEFAULT) [address] [place] [address] Sodium [Moles/Vol] 138 mmol/L Normal 135-145 [facility] Comment on above: Performed By: #### U [id number] #### [facility] (DEFAULT) [address] [place] [address] Urea nitrogen [Mass/Vol] 12 mg/dL Normal 7-25 [facility] Comment on above: Performed By: #### U [id number] #### [facility] (DEFAULT) [address] [place] [address] Urea nitrogen/Creatinine [Mass ratio] 26 mg/mg Normal [facility] Comment on above: Performed By: #### U [id number] #### [facility] (DEFAULT) [address] [place] [address] CT ANGIO BRAIN/NECKon 2024 CT ANGIO BRAIN/NECK [...] discussed the critical finding/s of possible left FINISHED HARDWARE ERECTOR occlusion with Kristen Ramon MD on 10/16/2024 8:57 PM. I personally viewed and interpreted these images and I have reviewed and approved this report. Normal [facility] CT HEAD WITHOUT CONTRASTon 0 10-17-2024 [...] Examination is otherwise not significant changed. Normal [facility] CT Head WO contraston 2024 RADIOLOGY RADIOLOGY [facility] Radiology [facility]narrative[facility] contrastOrdered B y: Michael Lopes on 10-17-2024 [facility] Work Phone: CT Head and CT Brain for per fusion and CT angiogram Head vessels WO and W contrast Lily 10-17-2024 [facility] Procedure Ordered By: Joel Luo on 10-17-2024 Ao peak diane 1.41 m/s [facility] Work Phone: AV LVOT peak gradient 2 mmHg [facility] Work Phone: AV peak gradient 8 mmHG [facility] Work Phone: AV Velocity Ratio 0.52 [facility] Work Phone: WALT (continuity Vmax) 2.18 cm2 [facility] Work Phone: WALT index (continuity Vmax) 0.82 m/s [facility] Work Phone: Body surface area Derived from formula 2.65 m2 [facility] Work Phone: BP EF 74 % [facility] Work Phone: DI (Vmax) 0.52 [facility] Work Phone: EST RAP 15 mmHg [facility] Work Phone: EST RVSP 49 mmHg [facility] Work Phone: FS 45 % [facility] Work Phone: IVC ostium 2.93 cm [facility] Work Phone: IVS 1.2 cm [facility] Work Phone: LA ESV BP (MOD) 138 [facility]: LA ESV BP (MOD) index 52 mL/m2 [facility] Work Phone: LA ESV SP 2CH (MOD) [address] [facility] Work Phone: LA ESV SP 4CH (MOD) [address] [facility] Work Phone: LV EDV BP 129 mL [facility] Work Phone: LV ESV BP 34 mL [facility] Work Phone: LV mass 280.47 g [facility] Work Phone: LV Mass Index 105.8 g/m2 [facility] Work Phone: LV RWT 0.43 [facility] Work Phone: [phone] LV stroke volume BP (ml) 95 mL [facility] Work Phone: LV stroke volume index BP 35.85 mL/m2 [facility] Work Phone: LVIDD 5.6 cm [facility] Work Phone: LVIDS 3.1 cm [facility] Work Phone: LVOT area 4.15 cm2 [facility] Work Phone: LVOT diameter 2.3 cm [facility] Work Phone: LVOT peak diane 0.74 m/s [facility] Work Phone: MV pk E diane 1.13 m/s [facility] Work Phone: [facility]SU ECHO LV BIPLANE SYSTOLIC VOLUME INDEX 12.83 mL/m2 [facility] Work Phone: [facility] ECHO LV BP DIASTOLIC VOLUME INDEX 48.68 mL/m2 [facility] Work Phone: PV peak gradient [address] [facility] Work Phone: PV PK DIANE 1.03 m/s [facility] Work Phone: PW 1.2 cm [facility] Work Phone: RA area 4CH (MOD) 29.2 cm2 [facility]: RA vol index 4CH (MOD) 44.91 mL/m2 [facility] Work Phone: Right atrium volume 4 chamber method of disks 119 mL [facility] Work Phone: RV Area diastolic 25.2 cm2 [facility]: RV Area systolic 15 cm2 [facility] Work [facility]: RV basal diam 3.66 cm [facility] Work Phone: RV Fractional area change 40.5 % [facility] Work Phone: RV long diam 8.18 cm [facility] Work Phone: RV mid diam 2.18 cm [facility] Work Phone: RV S' 12.4 cm/s [facility] Work Phone: TAPSE 1.79 cm [facility] Work Phone: TR pk grad 34 mmHg [facility] Work Phone: TR pk diane 2.92 m/s [facility] Work Phone: [facility] Work Phone: Cardiac echo study Procedure on 10-17-2024 [facility] Radiology Study observation (narrative) [facility] ECHOCARDIOGRAMon 10-17-2024 Echocardiography Technically difficul t [...] from the original result were not included. [facility] Facility [facility] Patient Information Patient Name Lani Zaragoza Legal [...] Role Read Date Joel Luo MD Echo [place] 10/17/2024 Wall Scoring Score Index: 1.00 The [...] BP Pulse 67 Performing Staff Ramon Tucker [facility] Study Details A complete echocardiography study (including [...] study: str (more content not included)... Normal [facility] EXTRA MICROon 10-17-2024 [facility] HIGH SENSITIVITY TROPONIN I - SINGLE ORDERon 10-17-2024 Interpretation and review of laboratory results Normal [facility] Troponin I.cardiac High sensitivity method [Mass/Vol] 6 ng/L NINF - 53 ng/L [facility] hs-Troponin I 6 ng/L Normal <53 [facility] Comment on above: Order Comment: Acute Coronary Syndrome (ACS): Initial Evaluation and Management:[email or web address] Performed By: #### Y NTBNP #### [facility] (DEFAULT) [address] [place] [address] LACTATE, BLOODon 10-17-2024 Interpretation and review of laboratory results Normal [facility] Lactate [Moles/Vol] 1.3 mmol/L 0.5 - 1. 6 mmol/L [facility] Lactate, Blood 1.3 mmol/L Normal 0.5-1.6 [facility] Comment on above: Performed By: #### C HM7 #### [facility] (DEFAULT) [address] [place] [address] LIPID PANEL W CALCULATED LDL on 10-17-2024 Cholesterol [Mass/Vol] 165 mg/dL NINF - 200 mg/dL [facility] Cholesterol in HDL [Mass/Vol] 37 mg/dL Low 40 - PINF mg/dL [facility] Cholesterol in LDL [Mass/Vol] 105 mg/dL High 0 - 99 mg/dL [facility] Cholesterol non HDL [Mass/Vol] 128 mg/dL NINF - 130 mg/dL [facility] Cholesterol.total/Cholest medhat in HDL [Mass ratio] 4.5 {ratio} High NINF - 4.5 [facility] Interpretation and review of laboratory results Abnormal [facility] Triglyceride [Mass/Vol] 113 mg/dL NINF - 150 mg/dL [facility] LIPID PANEL WITH REFLEX TO M EASURED LDLon 10-17-2024 Cholesterol [Mass/Vol] 168 mg/dL NINF - 200 mg/dL [facility] Cholesterol in HDL [Mass/Vol] 38 mg/dL Low 40 - PINF mg/dL [facility] Cholesterol in LDL [Mass/Vol] 106 mg/dL High 0 - 99 mg/dL [facility] Cholesterol non HDL [Mass/Vol] 130 mg/dL High NINF - 130 mg/dL [facility] Cholesterol.total/Cholest medhat in HDL [Mass ratio] 4.4 {ratio} NINF - 4.5 [facility] Interpretation and review of laboratory results Abnormal [facility] Triglyceride [Mass/Vol] 119 mg/dL NINF - 150 mg/dL [facility] MAGNESIUMon 10-17-2024 Interpretation and review of laboratory results Normal [facility] Magnesium [Mass/Vol] 1.7 mg/dL 1.6 - 2 .6 mg/dL [facility] NT-PRO B-TYPE NATRIURETIC PE PTIDEon 10-17-2024 Interpretation and review of laboratory results Abnormal [facility] Natriuretic peptide.B prohormone N-Terminal IA [Mass/Vol] 962 pg/mL High NINF - 540 pg/mL [facility] Natriuretic peptide B (Bld) [Mass/Vol] 962 pg/mL High <=540 [facility] Comment on above: Performed By: #### Y NTBNP #### [facility] (DEFAULT) [address] [address] No Panel Informationon 10-17 [facility] PROCALCITONINon 10-17-2024 Interpretation and review of laboratory results Normal [facility] Procalcitonin [Mass/Vol] 0.05 ng/mL TAWANA F - 0.50 ng/mL [facility] Portable XR Chest Viewson RADIOLOGY RADIOLOGY [facility] Radiology Study observation (narrative) [facility] RADIOLOGY RADIOLOGY [facility] Portable XR Chest ViewsOrder ed By: Ozzy Frederick on 10-17-2024 [facility] Work Phone: Portable XR Chest ViewsOrder ed By: Mikhail Kinsey on 10-17-2024 [facility] Work Phone: SODIUMon 10-17-2024 Interpretation and review of laboratory results Normal [facility] Sodium [Moles/Vol] 140 mmol/L 135 - 145 mmol/L [facility] Sodium [Moles/Vol] 140 mmol/L Normal 135-145 [facility] Comment on above: Performed By: #### X M #### [facility] (DEFAULT) [address] [address] Interpretation and review of laboratory results Normal [facility] Sodium [Moles/Vol] 138 mmol/L 135 - 145 mmol/L [facility] Sodium [Moles/Vol] 138 mmol/L Normal 135-145 [facility] Comment on above: Order Comment: While on 3% Hypertonic Saline. Performed By: #### Y NTBNP #### [facility] (DEFAULT) [address] [address] URINALYSIS REFLEX TO CULTURE PERFORMABLEon 10-17-2024 Appearance (U) Clear Clear [facility] Bacteria LM Ql (Urine sed) ABSENT ABSENT [facility] Color (U) Yellow Yellow [facility] Epithelial cells.squamous LM Ql (Urine sed) 0-2/hpf 0-2/hpf, 3-5/hpf = 1+ [facility] Glucose Test strip (U) [Mass/Vol] 500 mg/dL Abnormal Negative [facility] Interpretation and review of laboratory results Abnormal [facility] Ketones (U) [Mass/Vol] 15 mg/dL = Small Abnormal Negativ e [facility] Leukocyte esterase Test strip Ql (U) Negative Negative [facility] Nitrite Ql (U) Negative Negative [facility] pH (U) 5.5 [pH] 5.0 - 7.0 [facility] Protein (U) [Mass/Vol] 30 mg/dL Abnormal Negative [facility] RBC (U) [#/Vol] Negative [facility] RBC LM.HPF (Urine sed) [#/Area] 0-2 [facility] Specific gravity (U) [Rel density] 1.025 1.001 - 1.035 [facility] Urobilinogen (U) [Mass/Vol] 0.2 E.U./dL 0.2 E.U/dL, 1.0 E.U/dL [facility] WBC LM.HPF (Urine sed) [#/Area] 0 - 5 [facility] Appearance (U) Clear Normal Clear [facility] Comment on above: Order Comment: For i ndwelling catheters, specimen collection is acceptable on catheter day 1 and 2 only. ? Performed By: #### U [id number] #### [facility] (DEFAULT) [address] [place] [address] Bacteria ABSENT Normal ABSENT [facility] Comment on above: Order Comment: For i ndwelling catheters, specimen collection is acceptable on catheter day 1 and 2 only. ? Performed By: #### U [id number] #### [facility] (DEFAULT) [address] [place] [address] Blood Urine Negative Normal Negative [facility] Comment on above: Order Comment: For i ndwelling catheters, specimen collection is acceptable on catheter day 1 and 2 only. ? Performed By: #### U [id number] #### [facility] (DEFAULT) [address] [place] [address] Color (U) Yellow Normal Yellow [facility] Comment on above: Order Comment: For i ndwelling catheters, specimen collection is acceptable on catheter day 1 and 2 only. ? Performed By: #### U [id number] #### [facility] (DEFAULT) [address] [place] [address] Glucose Ql (U) 500 mg/dL Abnormal Negative [facility] Comment on above: Order Comment: For i ndwelling catheters, specimen collection is acceptable on catheter day 1 and 2 only. ? Performed By: #### U [id number] #### [facility] (DEFAULT) [address] [place] [address] Ketones Ql (U) 15 mg/dL = Small Abnormal Negative [facility] Comment on above: Order Comment: For i ndwelling catheters, specimen collection is acceptable on catheter day 1 and 2 only. ? Performed By: #### U [id number] #### [facility] (DEFAULT) [address] [place] [address] Leukocyte esterase Test strip Ql (U) Negative Normal Negative [facility] Comment on above: Order Comment: For i ndwelling catheters, specimen collection is acceptable on catheter day 1 and 2 only. ? Performed By: #### U [id number] #### [facility] (DEFAULT) [address] [place] [address]34 Nitrites Urine Negative Normal Negative [facility] Comment on above: Order Comment: For i ndwelling catheters, specimen collection is acceptable on catheter day 1 and 2 only. ? Performed By: #### U [id number] #### [facility] (DEFAULT) [address] [place] [address] pH (U) 5.5 [pH] Normal 5.0-7.0 [facility] Comment on above: Order Comment: For i ndwelling catheters, specimen collection is acceptable on catheter day 1 and 2 only. ? Performed By: #### U [id number] #### [facility] (DEFAULT) [address] [place] [address] Protein Urine 30 mg/dL Abnormal Negative [facility] Comment on above: Order Comment: For i ndwelling catheters, specimen collection is acceptable on catheter day 1 and 2 only. ? Performed By: #### U [id number] #### [facility] (DEFAULT) [address] [address] RBC Urine 0-2 Normal 0-2 [facility] Comment on above: Order Comment: For i ndwelling catheters, specimen collection is acceptable on catheter day 1 and 2 only. ? Performed By: #### U [id number] #### [facility] (DEFAULT) [address] [address] Specific [place] Urine 1.025 Normal 1.001-1.035 [facility] Comment on above: Order Comment: For i ndwelling catheters, specimen collection is acceptable on catheter day 1 and 2 only. ? Performed By: #### U [id number] #### [facility] (DEFAULT) [address] [address] Squamous/Epithelial Cells, Urine 0-2/hpf Normal 0-2/hpf, 3-5/hpf = 1+ [facility] Comment on above: Order Comment: For i ndwelling catheters, specimen collection is acceptable on catheter day 1 and 2 only. ? Performed By: #### U [id number] #### [facility] (DEFAULT) [address] [address] Urobilinogen Urine 0.2 E.U./dL Normal 0.2 E.U/d L, 1.0 E.U/dL [facility] Comment on above: Order Comment: For i ndwelling catheters, specimen collection is acceptable on catheter day 1 and 2 only. ? Performed By: #### U [id number] #### [facility] (DEFAULT) [address] [place] [address] WBC Urine 0 - 5 Normal 0 - 5 [facility] Comment on above: Order Comment: For i ndwelling catheters, specimen collection is acceptable on catheter day 1 and 2 only. ? Performed By: #### U [id number] #### [facility] (DEFAULT) [address] [place] [address] VANCOMYCIN LEVEL, TROUGH (NE E DRUG LEVEL)on 10-17-2024 Interpretation and review of laboratory results Abnormal [facility] Vancomycin trough [Mass/Vol] 21.5 ug/mL High [facility] Vancomycin, Trough 21.5 mcg/mL High Therapeut ic Range: 10.0-20.0 mcg/mL [facility] Comment on above: Order Comment: For i ndwelling catheters, specimen collection is acceptable on catheter day 1 and 2 only. ? Performed By: #### U [id number] #### [facility] (DEFAULT) [address] [place] [address] XR CHEST 1 VIEW PORTABLEon 0 10-17-2024 [...] have reviewed and approved this report. Normal [facility] XR CHEST 1 VIEW PORTABLE EXAM: XR CHEST 1 VIEW PORTABLE, 10/16/2024 23:00 PM COMPARISON: No prior studies available for comparison. CLINICAL INDICATIONS: resp insufficiency RELEVANT CLINICAL HISTORY: FINDINGS: (Adequate technique) Implanted Devices: None Thorax: Bilateral interstitial thickening. No pneumothorax. No pleural effusion. Cardiomegaly. Findings concerning for vascular congestion. IMPRESSION: See above Normal [facility] ABORH TYPE RECONFIRMATIONon 10-16-2024 ABO/RH(D) TYPE Negative [facility] ABO/RH(D) TYPE Negative Normal [facility] Comment on above: Performed By: #### T YPEC #### [facility] (DEFAULT) [address] [place] [address] Bedside Glucoseon 10-16-2024 FINGERSTICK GLU 189 mg/dL High 74-106 [facility] Comment on above: Result Comment: REYNA GEMENT OF PATIENT CARE PER NURSING PROTOCOL Performed By: #### L 501.080 ####[facility] [address] [facility] [address] FINGERSTICK GLU 208 mg/dL High [facility]106 [facility] Comment on above: Result Comment: REYNA GEMENT OF PATIENT CARE PER NURSING PROTOCOL Performed By: #### L 501.080 ####[facility] [address] [place], [address] FINGERSTICK GLU 206 mg/dL High [facility]106 [facility] Comment on above: Result Comment: REYNA GEMENT OF PATIENT CARE PER NURSING PROTOCOL Performed By: #### L 501.080 ####[facility] [address] [facility] [address] Brain/Head without Contrasto n 10-16-2024 Brain/Head without Contrast Normal [facility] CBC AND ELECTRONIC DIFFon Basophils (Bld) [#/Vol] 0.04 10*3/uL Normal 0.00-0.09 [facility] Comment on above: Performed By: #### X M #### [facility] (DEFAULT) [address] [place] [address] Basophils/100 WBC (Bld) 0.3 % Normal O [facility] Comment on above: Performed By: #### X M #### [facility] (DEFAULT) [address] [place] [address] DIFF STATUS Electronic Differential Normal [facility] Comment on above: Performed By: #### X M #### [facility] (DEFAULT) [address] [place] [address] 24450 Eosinophils (Bld) [#/Vol] 0.14 10*3/uL Normal 0.00-0.4 8 [facility] Comment on above: Performed By: #### X M #### [facility] (DEFAULT) [address] [address] Eosinophils/100 WBC (Bld) 1.0 % Normal [facility] Comment on above: Performed By: #### X M #### [facility] (DEFAULT) [address] [place] [address] Hematocrit (Bld) [Volume fraction] 37.5 % Low 39.6-48.8 [facility] Comment on above: Performed By: #### X M #### [facility] (DEFAULT) [address] [place] [address] Hemoglobin (Bld) [Mass/Vol] 12.6 g/dL Low 13.4-16.8 [facility] Comment on above: Performed By: #### X M #### [facility] (DEFAULT) [address] [place] [address] Immature Grans % 0.4 % Normal [facility] Comment on above: Performed By: #### X M #### [facility] (DEFAULT) [address] [place] [address] 14[address] Immature Grans Absolute 0.06 K/uL Normal <=0.07 O [facility] Comment on above: Performed By: #### X M #### [facility] (DEFAULT) [address] [place] [address] 211[address] Lymphocytes (Bld) [#/Vol] 2.02 10*3/uL Normal 0.83-3.5 7 [facility] Comment on above: Performed By: #### X M #### [facility] (DEFAULT) [address] [place] [address] Lymphocytes/100 WBC (Bld) 15.1 % Normal [facility] Comment on above: Performed By: #### X M #### [facility] (DEFAULT) [address] [place] [address] MCV (RBC) [Entitic vol] 78.9 fL Low 79.0-94.5 O [facility] Comment on above: Performed By: #### X M #### [facility] (DEFAULT) [address] [place] [address] 24509 Mean Cell Hgb 26.5 pg Normal 26.1-33.3 [facility] Comment on above: Performed By: #### X M #### [facility] (DEFAULT) [address] [place] [address] 22439 Mean Cell Hgb Conc 33.6 g/dL Normal 31.9-36.5 [facility] Comment on above: Performed By: #### X M #### [facility] (DEFAULT) [address] [place] [address] 6[address] Monocytes (Bld) [#/Vol] 0.75 10*3/uL Normal 0.24-0.93 [facility] Comment on above: Performed By: #### X M #### [facility] (DEFAULT) [address] [place] [address]79 Monocytes/100 WBC (Bld) 5.6 % Normal [facility] Comment on above: Performed By: #### X M #### [facility] (DEFAULT) [address] [place] [address] 08815 Nucleated RBC 0.0 /100 WBC Normal <=0.2 [facility] Comment on above: Performed By: #### X M #### [facility] (DEFAULT) [address] [place] [address] 00750 Platelet mean volume (Bld) [Entitic vol] 9.2 fL Normal 8.7-12.3 [facility] Comment on above: Performed By: #### X M #### [facility] (DEFAULT) [address] [place] [address] Platelets (Bld) [#/Vol] 307 10*3/uL Normal 146-337 [facility] Comment on above: Performed By: #### X M #### [facility] (DEFAULT) [address] [place] [address] 53489 RBC (Bld) [#/Vol] 4.75 10*6/uL Normal 4.38-5.83 [facility] Comment on above: Performed By: #### X M #### [facility] (DEFAULT) [address] [place] [address] 84597 RBC Distribution 13.2 % Normal 10.9-14.3 [facility] Comment on above: Performed By: #### X M #### [facility] (DEFAULT) [address] [place] [address] Segs + Bands Auto 77.6 % Normal [facility] Comment on above: Performed By: #### X M #### [facility] (DEFAULT) [address] [place] [address] 065[address] Segs + Bands,Absolute Auto 10.38 K/uL High 1.57-6.19 [facility] Comment on above: Performed By: #### X M #### [facility] (DEFAULT) [address] [place] [address] WBC (Bld) [#/Vol] 13.39 10*3/uL High 3.73-10.10 [facility] Comment on above: Performed By: #### X M #### [facility] (DEFAULT) [address] [place] [address] CBC,PLATELETSon 10-16-2024 Erythrocyte distribution width (RBC) [Ratio] 13.2 % 10.9 - 14.3 % [facility] Hematocrit (Bld) [Volume fraction] 37 % Low 39.6 - 48.8 % [facility] Hemoglobin (Bld) [Mass/Vol] 12.6 g/dL Low 13.4 - 16.8 g/dL [facility] Interpretation and review of laboratory results Abnormal [facility] MCH (RBC) [Entitic mass] 27.1 pg 26. 1 - 33.3 pg [facility] MCHC (RBC) [Mass/Vol] 34.1 g/dL 31.9 - 36.5 g/dL [facility] MCV (RBC) [Entitic vol] 79.6 fL 79.0 - 94.5 fL [facility] Platelet mean volume (Bld) [Entitic vol] 9.2 fL 8.7 - 12.3 fL [facility] Platelets (Bld) [#/Vol] 272 10*3/uL 146 - 337 K/uL [facility] RBC (Bld) [#/Vol] 4.65 10*6/uL [facility] WBC (Bld) [#/Vol] 12.56 10*3/uL High 3.73 - 10 .10 K/uL [facility] Hematocrit (Bld) [Volume fraction] 37.0 % Low 39.6-48.8 [facility] Comment on above: Performed By: #### X M #### [facility] (DEFAULT) [address] [place] [address] Hemoglobin (Bld) [Mass/Vol] 12.6 g/dL Low 13.4-16.8 [facility] Comment on above: Performed By: #### X M #### [facility] (DEFAULT) [address] [place] [address] MCV (RBC) [Entitic vol] 79.6 fL Normal 79.0-94.5 O [facility] Comment on above: Performed By: #### X M #### [facility] (DEFAULT) [address] [address] Mean Cell Hgb 27.1 pg Normal 26.1-33.3 [facility] Comment on above: Performed By: #### X M #### [facility] (DEFAULT) [address] [address] Mean Cell Hgb Conc 34.1 g/dL Normal 31.9-36.5 [facility] Comment on above: Performed By: #### X M #### [facility] (DEFAULT) [address] [address] Platelet mean volume (Bld) [Entitic vol] 9.2 fL Normal 8.7-12.3 [facility] Comment on above: Performed By: #### X M #### [facility] (DEFAULT) [address] [address] Platelets (Bld) [#/Vol] 272 10*3/uL Normal 146-337 [facility] Comment on above: Performed By: #### X M #### [facility] (DEFAULT) [address] [address] RBC (Bld) [#/Vol] 4.65 10*6/uL Normal 4.38-5.83 [facility] Comment on above: Performed By: #### X M #### [facility] (DEFAULT) [address] [address] RBC Distribution 13.2 % Normal 10.9-14.3 [facility] Comment on above: Performed By: #### X M #### [facility] (DEFAULT) [address] [address] WBC (Bld) [#/Vol] 12.56 10*3/uL High 3.73-10.10 [facility] Comment on above: Performed By: #### X M #### [facility] (DEFAULT) [address] [place] [address] 270[address] CHEM 7 (LYTES,BUN,CREA,GLUC) on 10-16-2024 Anion gap [Moles/Vol] 14 mmol/L 7 - 17 mmol/L [facility] Chloride [Moles/Vol] 97 mmol/L Low 98 - 10 8 mmol/L [facility] CO2 [Moles/Vol] 29 mmol/L 21 - 31 mmol/L [facility] Creatinine [Mass/Vol] 0.5 mg/dL Low 0.70 - 1.30 mg/dL [facility] eGFR, CKD-EPI, Male - PINF [facility] Glucose [Mass/Vol] 223 mg/dL High 70 - 179 mg/dL [facility] Interpretation and review of laboratory results Abnormal [facility] Osmolality Calc [Osmolality] 291 [facility] Potassium [Moles/Vol] 3.8 mmol/L 3.5 - 5.0 mmol/L [facility] Sodium [Moles/Vol] 136 mmol/L 135 - 145 mmol/L [facility] Urea nitrogen [Mass/Vol] 9 mg/dL 7 - 25 mg/d L [facility] Urea nitrogen/Creatinine [Mass ratio] 18 mg/mg [facility] Anion gap [Moles/Vol] 14 mmol/L Normal 7-17 [facility] Comment on above: Performed By: #### T YPEC #### [facility] (DEFAULT) [address] [place] [address] Chloride [Moles/Vol] 97 mmol/L Low 98-108 [facility] Comment on above: Performed By: #### T YPEC #### [facility] (DEFAULT) [address] [place] [address] CO2 [Moles/Vol] 29 mmol/L Normal 21-31 [facility] Comment on above: Performed By: #### T YPEC #### [facility] (DEFAULT) [address] [place] [address]252 Creatinine [Mass/Vol] 0.50 mg/dL Low 0.70-1.30 [facility] Comment on above: Performed By: #### T YPEC #### [facility] (DEFAULT) [address] [place] [address] 89593 eGFR, CKD-EPI, Male > Normal >=60 [facility] Comment on above: Result Comment: Repo rted eGFR is based on the CKD-EPI 2020 equation using creatinine, age, and sex. Performed By: #### T YPEC #### [facility] (DEFAULT) [address] [place] [address]187 Glucose [Mass/Vol] 223 mg/dL High Nonfastin -179 mg/dL; Fastin-99 [facility] Comment on above: Performed By: #### T YPEC #### [facility] (DEFAULT) [address] [place] [address] 33792 Osmolality [Osmolality] 291 mosm/kg Normal 278-305 [facility] Comment on above: Performed By: #### T YPEC #### [facility] (DEFAULT) [address] [place] [address] 52898 Potassium [Moles/Vol] 3.8 mmol/L Normal 3.5-5.0 [facility] Comment on above: Performed By: #### T YPEC #### [facility] (DEFAULT) [address] [place] [address]659 Sodium [Moles/Vol] 136 mmol/L Normal 135-145 [facility] Comment on above: Performed By: #### T YPEC #### [facility] (DEFAULT) [address] [place] [address] 59274 Urea nitrogen [Mass/Vol] 9 mg/dL Normal 7-25 [facility] Comment on above: Performed By: #### T YPEC #### [facility] (DEFAULT) [address] [place] [address] 42626 Urea nitrogen/Creatinine [Mass ratio] 18 mg/mg Normal [facility] Comment on above: Performed By: #### T YPEC #### [facility] (DEFAULT) [address] [place] [address] 50037 CHM 7 - EDon 10-16-2024 Anion gap [Moles/Vol] 12 mmol/L Normal 7-17 [facility] Comment on above: Performed By: #### U [id number] #### [facility] (DEFAULT) [address] [place] [address] 83872 Chloride [Moles/Vol] 99 mmol/L Normal 98-108 [facility] Comment on above: Performed By: #### U [id number] #### [facility] (DEFAULT) [address] [place] [address] 38560 CO2 [Moles/Vol] 29 mmol/L Normal 21-31 [facility] Comment on above: Performed By: #### U [id number] #### [facility] (DEFAULT) [address] [place] [address] 53035 Creatinine [Mass/Vol] 0.52 mg/dL Low 0.70-1.30 [facility] Comment on above: Performed By: #### U [id number] #### [facility] (DEFAULT) [address] [place] [address] 62032 eGFR, CKD-EPI, Male > Normal >=60 [facility] Comment on above: Result Comment: Repo rted eGFR is based on the CKD-EPI 2020 equation using creatinine, age, and sex. Performed By: #### U [id number] #### [facility] (DEFAULT) [address] [place] [address] 24996 Glucose [Mass/Vol] 224 mg/dL High Nonfastin -179 mg/dL; Fastin-99 [facility] Comment on above: Performed By: #### U [id number] #### [facility] (DEFAULT) [address] [place] [address] 18307 Osmolality [Osmolality] 292 mosm/kg Normal 278-305 [facility] Comment on above: Performed By: #### U [id number] #### [facility] (DEFAULT) [address] [place] [address] 09007 Potassium [Moles/Vol] 3.8 mmol/L Normal 3.5-5.0 [facility] Comment on above: Performed By: #### U [id number] #### [facility] (DEFAULT) [address] [place] [address] 27479 Sodium [Moles/Vol] 136 mmol/L Normal 135-145 [facility] Comment on above: Performed By: #### U [id number] #### [facility] (DEFAULT) [address] [place] [address] 08214 Urea nitrogen [Mass/Vol] 9 mg/dL Normal 7-25 [facility] Comment on above: Performed By: #### U [id number] #### [facility] (DEFAULT) [address] [place] [address] 50588 Urea nitrogen/Creatinine [Mass ratio] 17 mg/mg Normal [facility] Comment on above: Performed By: #### U [id number] #### [facility] (DEFAULT) [address] [place] [address] STROKE HEAD-STROKE ALERT ONLYon 10-16-2024 CT [...] duffy-white differentiation, predominantly localizing to the left [employer] territory. 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 2. Trace interventricular hemorrhage. 3. Localized mass effect without significant midline shift, herniation, hydrocephalus. Pulmonary results were discussed with Kristen Ramon MD at 8:57 PM on October 16, 2024. I personally viewed and interpreted these images and I have reviewed and approved this report. Normal [facility] Culture, Anaerobic Any Sourc devonte 10-16-2024 CUAN Normal [facility] Comment on above: Performed By: #### M 100.2000, M100.4001, M100.3000 ####[facility] [id number] [place], [address] Glucose measurement at [facility] deOrdered By: Haily Santos on 10-16-2024 Glucose [Mass/Vol] 189 mg/dL High 74-106 [facility] Comment on above: MANAGEMENT OF PATIEN T CARE PER NURSING PROTOCOL HEMOGLOBIN A1Con 10-16-2024 Average glucose Estimated from glycated hemoglobin (Bld) [Mass/Vol] 255 mg/dL [facility] HbA1c (Bld) [Mass fraction] 10.5 % High 4.7 - 5.6 % [facility] Interpretation and review of laboratory results Abnormal [facility] Glucose [Mass/Vol] 255 mg/dL Normal [facility] Comment on above: Performed By: #### X M #### [facility] (DEFAULT) [address] [address] Hemoglobin A1C HPLC 10.5 % High 4.7-5.6 [facility] Comment on above: Performed By: #### X M #### [facility] (DEFAULT) [address] [address] HEPATIC FUNCTION PANELon Albumin [Mass/Vol] 3.5 g/dL Normal 3.5-5.0 [facility] Comment on above: Performed By: #### G AS5 #### [facility] (DEFAULT) [address] [place] [address] ALP [Catalytic activity/Vol] 92 U/L Normal 32-126 [facility] Comment on above: Performed By: #### G AS5 #### [facility] (DEFAULT) [address] [place] [address] ALT [Catalytic activity/Vol] 13 U/L Normal 10-52 [facility] Comment on above: Performed By: #### G AS5 #### [facility] (DEFAULT) [address] [place] [address] AST [Catalytic activity/Vol] 14 U/L Normal 10-39 [facility] Comment on above: Performed By: #### G AS5 #### [facility] (DEFAULT) [address] [place] [address] 98982 Bilirubin [Mass/Vol] 0.6 mg/dL Normal <1.5 [facility] Comment on above: Performed By: #### G AS5 #### [facility] (DEFAULT) [address] [place] [address] 81258 Bilirubin.indirect [Mass/Vol] 0.2 mg/dL Normal <0.3 [facility] Comment on above: Performed By: #### G AS5 #### [facility] (DEFAULT) [address] [place] [address] 22182 Protein [Mass/Vol] 7.2 g/dL Normal 6.4-8.3 [facility] Comment on above: Performed By: #### G AS5 #### [facility] (DEFAULT) [address] [place] [address] 6[address] HIGH SENSITIVITY TROPONIN I - SINGLE ORDERon 10-16-2024 Interpretation and review of laboratory results Normal [facility] Troponin I.cardiac High sensitivity method [Mass/Vol] 6 ng/L NINF - 53 ng/L [facility] hs-Troponin I 6 ng/L Normal <53 [facility] Comment on above: Order Comment: 2 [...] bottle. Performed By: #### B LDCULT #### [facility] (DEFAULT) [address] [address] hs-Troponin I 6 ng/L Normal <53 [facility] Comment on above: Order Comment: Acute Coronary Syndrome (ACS): Initial Evaluation and Management:[email or web address]%[email or web address] Performed By: #### G AS5 #### [facility] (DEFAULT) [address] [address] IONIZED CALCIUM, SERUMOrdere d By: Kike Hansen on 10-16-2024 Calcium.ionized (Bld) [Moles/Vol] 4.8 mg/dL 4.60 - 5.30 mg/dL [facility] Interpretation and review of laboratory results Normal [facility] IONIZED CALCIUM, SERUMon ICA 4.80 mg/dL Normal 4.60-5.30 [facility] Comment on above: Performed By: #### X M #### [facility] (DEFAULT) [address] [address] LIPID PANEL W CALCULATED LDL on 10-16-2024 Calculated LDL Cholesterol 105 mg/dL High 0-99 [facility] Comment on above: Result Comment: [<10 0 mg/dL: Optimal] [100-129 mg/dL: Near Optimal] [130-159 mg/dL: Borderline High] [160-189 mg/dL: High] [>189 mg/dL: Very High] Performed By: #### V ANCTR #### [facility] (DEFAULT) [address] [place] [address]763 Cholesterol [Mass/Vol] 165 mg/dL Normal <200 [facility] Comment on above: Result Comment: [<20 0 mg/dL: Desirable] [200-239 mg/dL: Borderline High] [>239 mg/dL: High] Performed By: #### V ANCTR #### [facility] (DEFAULT) [address] [place] [address]2337 Cholesterol in HDL [Mass/Vol] 37 mg/dL Low >=40 [facility] Comment on above: Result Comment: [<40 mg/dL: Low (High Risk)] [>59 mg/dL: High (Low Risk)] Performed By: #### V ANCTR #### [facility] (DEFAULT) [address] [place] [address] 58657 Non HDL Cholesterol 128 mg/dL Normal <130 [facility] Comment on above: Performed By: #### V ANCTR #### [facility] (DEFAULT) [address] [place] [address] 92950 Total Cholesterol/HDL Ratio 4.5 High <4.5 [facility] Comment on above: Performed By: #### V ANCTR #### [facility] (DEFAULT) [address] [place] [address]209 Triglyceride [Mass/Vol] 113 mg/dL Normal <150 [facility] Comment on above: Result Comment: [<15 0 mg/dL: Desirable] [150-199 mg/dL: Borderline] [200-499 mg/dL: High] [>500 mg/dL: Very High] Performed By: #### V ANCTR #### [facility] (DEFAULT) [address] [place] [address] 67011 LIPID PANEL WITH REFLEX TO M ANIRUDH LDLon 10-16-2024 Calculated LDL Cholesterol 106 mg/dL High 0-99 [facility] Comment on above: Result Comment: [<10 0 mg/dL: Optimal] [100-129 mg/dL: Near Optimal] [130-159 mg/dL: Borderline High] [160-189 mg/dL: High] [>189 mg/dL: Very High] Performed By: #### G AS5 #### [facility] (DEFAULT) [address] [place] [address] 23831 Cholesterol [Mass/Vol] 168 mg/dL Normal <200 [facility] Comment on above: Result Comment: [<20 0 mg/dL: Desirable] [200-239 mg/dL: Borderline High] [>239 mg/dL: High] Performed By: #### G AS5 #### [facility] (DEFAULT) [address] [place] [address] 99671 Cholesterol in HDL [Mass/Vol] 38 mg/dL Low >=40 [facility] Comment on above: Result Comment: [<40 mg/dL: Low (High Risk)] [>59 mg/dL: High (Low Risk)] Performed By: #### G AS5 #### [facility] (DEFAULT) [address] [place] [address] 33916 Non HDL Cholesterol 130 mg/dL High <130 [facility] Comment on above: Performed By: #### Jose AS5 #### [facility] (DEFAULT) [address] [place] [address] 30851 Total Cholesterol/HDL Ratio 4.4 Normal <4.5 [facility] Comment on above: Performed By: #### G AS5 #### [facility] (DEFAULT) [address] [place] [address] 13971 Triglyceride [Mass/Vol] 119 mg/dL Normal <[address] [facility] Comment on above: Result Comment: [<15 0 mg/dL: Desirable] [150-199 mg/dL: Borderline] [200-499 mg/dL: High] [>500 mg/dL: Very High] Performed By: #### G AS5 #### [facility] (DEFAULT) [address] [place] [address]405 MAGNESIUMon 10-16-2024 Magnesium [Mass/Vol] 1.6 mg/dL 1.6 - 2 .6 mg/dL [facility] Magnesium [Mass/Vol] 1.6 mg/dL Normal 1.6-2.6 [facility] Comment on above: Performed By: #### T YPEC #### [facility] (DEFAULT) [address] [address] Magnesium [Mass/Vol] 1.7 mg/dL Normal 1.6-2.6 [facility] Comment on above: Performed By: #### G AS5 #### [facility] (DEFAULT) [address] [address] No Panel Informationon 10-16 Interpretation and review of laboratory results Normal [facility] PHOSPHATE, INORGANICon 10-16 Phosphate [Mass/Vol] 3 mg/dL 2.2 - 4 .6 mg/dL [facility] Phosphorous 3.0 mg/dL Normal 2.2-4.6 [facility] Comment on above: Performed By: #### T YPEC #### [facility] (DEFAULT) [address] [place] [address] PROCALCITONINon 10-16-2024 Procalcitonin 0.05 ng/mL Normal <0.50 [facility] Comment on above: Result Comment: Proc [...] and trend procalcitonin in various clinical settings. [email or web address]=/[email or web address]/GD [email or web address]&action=[email or web address] Two common cutoffs associated with bacterial infections are as follows. Respiratory tract infections: >0.25 ng/mL Sepsis/septic shock: >0.5 ng/mL Procalcitonin should not be used alone as a diagnostic tool, however. All procalcitonin results should be interpreted in association with the patients clinical condition and all laboratory findings. Performed By: #### V ANCTR #### [facility] (DEFAULT) [address] [place] [address] PTINR-STROKEon 10-16-2024 INR Coag (PPP) [Relative time] 1.1 {INR} Normal 0.9-1.1 [facility] Comment on above: Performed By: #### C HM7 #### [facility] (DEFAULT) [address] [place] [address] PT Coag (PPP) [Time] 14.5 s High 11.9-14.2 [facility] Comment on above: Performed By: #### C HM7 #### [facility] (DEFAULT) [address] [place] [address] PTTon 10-16-2024 aPTT Coag (Bld) [Time] 33.6 s Normal 24.0-34.3 [facility] Comment on above: Performed By: #### C HM7 #### [facility] (DEFAULT) [address] [place] [address] Portable XR Chest Viewson Radiology Study observation (narrative) [facility] TYPE AND SCREENon 10-16-2024 ABO/RH(D) TYPE Negative Normal [facility] Comment on above: Performed By: #### X M #### [facility] (DEFAULT) [address] [place] [address] Specimen Expiration 10/19/2024 23:59 Normal [facility] Comment on above: Performed By: #### X M #### [facility] (DEFAULT) [address] [place] [address] URINALYSIS REFLEX TO CULTURE PERFORMABLEon 10-16-2024 Appearance (U) Clear Clear [facility] Bacteria LM Ql (Urine sed) ABSENT ABSENT [facility] Color (U) Yellow Yellow [facility] Epithelial cells.squamous LM Ql (Urine sed) 0-2/hpf 0-2/hpf, 3-5/hpf = 1+ [facility] Glucose Test strip (U) [Mass/Vol] 250 mg/dL Abnormal Negative [facility] Interpretation and review of laboratory results Abnormal [facility] Ketones (U) [Mass/Vol] 40 mg/dL = Moderate Abnormal Nega tive [facility] Leukocyte esterase Test strip Ql (U) Negative Negative [facility] Nitrite Ql (U) Negative Negative [facility] pH (U) 5.5 [pH] 5.0 - 7.0 [facility] Protein (U) [Mass/Vol] 30 mg/dL Abnormal Negative [facility] RBC (U) [#/Vol] [facility] RBC LM.HPF (Urine sed) [#/Area] 3-5 Abnormal [facility] Specific gravity (U) [Rel density] 1.018 1.001 - 1.035 [facility] Urobilinogen (U) [Mass/Vol] 0.2 E.U./dL 0.2 E.U/dL, 1.0 E.U/dL [facility] WBC LM.HPF (Urine sed) [#/Area] 6 - 10 Abnormal [facility] Appearance (U) Clear Normal Clear [facility] Comment on above: Order Comment: For i ndwelling catheters, specimen collection is acceptable on catheter day 1 and 2 only. ? Performed By: #### X M #### [facility] (DEFAULT) [address] [address] Bacteria ABSENT Normal ABSENT [facility] Comment on above: Order Comment: For i ndwelling catheters, specimen collection is acceptable on catheter day 1 and 2 only. ? Performed By: #### X M #### [facility] (DEFAULT) [address] [address] Blood Urine Negative Normal Negative [facility] Comment on above: Order Comment: For i ndwelling catheters, specimen collection is acceptable on catheter day 1 and 2 only. ? Performed By: #### X M #### [facility] (DEFAULT) [address] [place] [address] Color (U) Yellow Normal Yellow [facility] Comment on above: Order Comment: For i ndwelling catheters, specimen collection is acceptable on catheter day 1 and 2 only. ? Performed By: #### X M #### [facility] (DEFAULT) [address] [place] [address] Glucose Ql (U) 250 mg/dL Abnormal Negative [facility] Comment on above: Order Comment: For i ndwelling catheters, specimen collection is acceptable on catheter day 1 and 2 only. ? Performed By: #### X M #### [facility] (DEFAULT) [address] [place] [address] Ketones Ql (U) 40 mg/dL = Moderate Abnormal Negative [facility] Comment on above: Order Comment: For i ndwelling catheters, specimen collection is acceptable on catheter day 1 and 2 only. ? Performed By: #### X M #### [facility] (DEFAULT) [address] [place] [address] Leukocyte esterase Test strip Ql (U) Negative Normal Negative [facility] Comment on above: Order Comment: For i ndwelling catheters, specimen collection is acceptable on catheter day 1 and 2 only. ? Performed By: #### X M #### [facility] (DEFAULT) [address] [place] [address] Nitrites Urine Negative Normal Negative [facility] Comment on above: Order Comment: For i ndwelling catheters, specimen collection is acceptable on catheter day 1 and 2 only. ? Performed By: #### X M #### [facility] (DEFAULT) [address] [place] [address] pH (U) 5.5 [pH] Normal 5.0-7.0 [facility] Comment on above: Order Comment: For i ndwelling catheters, specimen collection is acceptable on catheter day 1 and 2 only. ? Performed By: #### X M #### [facility] (DEFAULT) [address] [place] [address] Protein Urine 30 mg/dL Abnormal Negative [facility] Comment on above: Order Comment: For i ndwelling catheters, specimen collection is acceptable on catheter day 1 and 2 only. ? Performed By: #### X M #### [facility] (DEFAULT) [address] [place] [address] RBC Urine 3-5 Abnormal 0-2 [facility] Comment on above: Order Comment: For i ndwelling catheters, specimen collection is acceptable on catheter day 1 and 2 only. ? Performed By: #### X M #### [facility] (DEFAULT) [address] [address] Specific [place] Urine 1.018 Normal 1.001-1.035 [facility] Comment on above: Order Comment: For i ndwelling catheters, specimen collection is acceptable on catheter day 1 and 2 only. ? Performed By: #### X M #### [facility] (DEFAULT) [address] [place] [address] Squamous/Epithelial Cells, Urine 0-2/hpf Normal 0-2/hpf, 3-5/hpf = 1+ [facility] Comment on above: Order Comment: For i ndwelling catheters, specimen collection is acceptable on catheter day 1 and 2 only. ? Performed By: #### X M #### [facility] (DEFAULT) [address] [place] [address] Urobilinogen Urine 0.2 E.U./dL Normal 0.2 E.U/d L, 1.0 E.U/dL [facility] Comment on above: Order Comment: For i ndwelling catheters, specimen collection is acceptable on catheter day 1 and 2 only. ? Performed By: #### X M #### [facility] (DEFAULT) [address] [place] [address] WBC Urine 6 - 10 Abnormal 0 - 5 [facility] Comment on above: Order Comment: For i ndwelling catheters, specimen collection is acceptable on catheter day 1 and 2 only. ? Performed By: #### X M #### [facility] (DEFAULT) [address] [address] URINE DRUG SCREEN 10-16 Amphetamine/Methamphetami ne Not detected Normal Cutoff: 500 ng/mL [facility] Comment on above: Order Comment: For m edical purposes only. Positive results are unconfirmed unless otherwise noted. Performed By: #### C HM7 #### [facility] (DEFAULT) [address] [address] Barbiturates Not detected Normal Cutoff: 200 ng/mL [facility] Comment on above: Order Comment: For edical purposes only. Positive results are unconfirmed unless otherwise noted. Performed By: #### C HM7 #### [facility] (DEFAULT) [address] [address] Benzodiazepines Positive Abnormal Cutoff: 200 ng/mL [facility] Comment on above: Order Comment: For edical purposes only. Positive results are unconfirmed unless otherwise noted. Performed By: #### C HM7 #### [facility] (DEFAULT) [address] [address] Buprenorphine Not detected Normal Cutoff: 5 ng/mL [facility] Comment on above: Order Comment: For edical purposes only. Positive results are unconfirmed unless otherwise noted. Performed By: #### C HM7 #### [facility] (DEFAULT) [address] [address] Cannabinoids Screen Ql (U) Not detected Normal Cutoff: 50 ng/mL [facility] Comment on above: Order Comment: For edical purposes only. Positive results are unconfirmed unless otherwise noted. Performed By: #### C HM7 #### [facility] (DEFAULT) [address] [address] Cocaine Not detected Normal Cutoff: 150 ng/mL [facility] Comment on above: Order Comment: For edical purposes only. Positive results are unconfirmed unless otherwise noted. Performed By: #### C HM7 #### [facility] (DEFAULT) [address] [address] Fentanyl Not detected Normal Cutoff: 1 ng/mL [facility] Comment on above: Order Comment: For m edical purposes only. Positive results are unconfirmed unless otherwise noted. Performed By: #### C HM7 #### [facility] (DEFAULT) [address] [address] Methadone Not detected Normal Cutoff: 300 ng/mL [facility] Comment on above: Order Comment: For m edical purposes only. Positive results are unconfirmed unless otherwise noted. Performed By: #### C HM7 #### [facility] (DEFAULT) [address] [address] Opiates Not detected Normal Cutoff: 300 ng/mL [facility] Comment on above: Order Comment: For m edical purposes only. Positive results are unconfirmed unless otherwise noted. Performed By: #### C HM7 #### [facility] (DEFAULT) [address] [address] Oxycodone Positive Abnormal Cutoff: 100 ng/mL [facility] Comment on above: Order Comment: For m edical purposes only. Positive results are unconfirmed unless otherwise noted. Performed By: #### C HM7 #### [facility] (DEFAULT) [address] [address] Absolute lymphocyte countOrd ered By: Teja Avendano on 10-15-2024 Lymphocytes Auto (Unsp spec) [#/Vol] 1.38 10*3/uL 0.83-4.51 [facility] Absolute neutrophil countOrd ered By: Teja Avendano on 10-15-2024 Neutrophils (Bld) [#/Vol] 6.6 10*3/uL 2.0-7.7 [facility] Anaerobic cultureOrdered By: Ramon Garcia on 10-15-2024 Bacteria identified Anaer cx Nom (Unsp spec) No anaerobic bacteria isolated. [facility] Anion gap in Serum or Plasma Ordered By: Ozzy Cabrera on 10-15-2024 Anion gap [Moles/Vol] 8 mmol/L 5-15 [facility] Automated lymphocyte count a s percentage of total leukocytesOrdered By: Teja Avendano on 10-15-2024 Lymphocytes/100 WBC Auto (Unsp spec) 16.0 % Low 19-41 [facility] BUN/creatinine ratioOrdered By: Ozzy Cabrera on 10-15-2024 Urea nitrogen/Creatinine [Mass ratio] 19.4 mg/mg 10-20 [facility] Basic Metabolic Profile (BMP )on 10-15-2024 BUN/CRE 19.4 RATIO Normal 10-20 [facility] Comment on above: Performed By: #### L 500.2500 ####[facility] [address] [place], [address] Calcium [Mass/Vol] 8.9 mg/dL Normal 7.6-11.0 [facility] Comment on above: Performed By: #### L 500.2500 ####[facility] [address] [place], [address] Chloride [Moles/Vol] 101 mmol/L Normal 98-[address] [facility] Comment on above: Performed By: #### L 500.2500 ####[facility] [address] [place], [address] CO2 [Moles/Vol] 26.1 mmol/L Normal 21.0-32.0 [facility] Comment on above: Performed By: #### L 500.2500 ####[facility] [address] [place], [address] Creatinine [Mass/Vol] 0.58 mg/dL Low 0.70-1.20 [facility] Comment on above: Performed By: #### L 500.2500 ####[facility] [address] [place], [address] ECRCL 126.34 ml/min Normal 50-250 [facility] Comment on above: Performed By: #### L 500.2500 ####[facility] [address] [place], [address] GAP 8 Normal 5-15 [facility] Comment on above: Performed By: #### L 500.2500 ####[facility] [address] [place], [address] GFR/1.73 sq M.predicted among non-blacks MDRD (S/P/Bld) [Vol rate/Area] 105 mL/min/{1.73_m2} Normal >60 [facility] Comment on above: Result Comment: mL/m in/1.73m2 CKD-EPI Creatinine Equation (2020) Performed By: #### L 500.2500 ####[facility] [address] [place], [address] Glucose [Mass/Vol] 260 mg/dL High 70-99 [facility] Comment on above: Performed By: #### L 500.2500 ####[facility] [address] [place], [address] Potassium [Moles/Vol] 4.5 mmol/L Normal 3.3-5.1 [facility] Comment on above: Performed By: #### L 500.2500 ####[facility] [address] [place], [address] Sodium [Moles/Vol] 136 mmol/L Normal 133-145 [facility] Comment on above: Performed By: #### L 500.2500 ####[facility] [address] [place], [address] Urea nitrogen [Mass/Vol] 11 mg/dL Normal 4-19 [facility] Comment on above: Performed By: #### L 500.2500 ####[facility] [address] [place], [address] Basophil percentageOrdered B y: Teja Lexrenetta on 10-15-2024 Basophils/100 WBC (Bld) 0.6 % 0-1 [facility] Bedside Glucoseon 10-15-2024 FINGERSTICK GLU 181 mg/dL High 74-106 [facility] Comment on above: Result Comment: REYNA GEMENT OF PATIENT CARE PER NURSING PROTOCOL Performed By: #### L 501.080 ####[facility] [address] [place], [address] FINGERSTICK GLU 195 mg/dL High 74-106 [facility] Comment on above: Result Comment: REYNA GEMENT OF PATIENT CARE PER NURSING PROTOCOL Performed By: #### L 501.080 ####[facility] [address] [place], [address] FINGERSTICK GLU 201 mg/dL High 74-106 [facility] Comment on above: Result Comment: REYNA GEMENT OF PATIENT CARE PER NURSING PROTOCOL Performed By: #### L 501.080 ####[facility] [address] [place], [address] FINGERSTICK GLU 202 mg/dL High 74-106 [facility] Comment on above: Result Comment: REYNA GEMENT OF PATIENT CARE PER NURSING PROTOCOL Performed By: #### L 501.080 ####[facility] [address] [place], [address] CBC W/Diff, Automatedon 09-19 Absolute Lymph 1.38 X10 3/uL Normal 0.83-4.51 [facility] Comment on above: Performed By: #### L 100.0100 ####[facility] [address] [place], [address] Absolute Neut 6.6 X10 3/uL Normal 2.0-7.7 [facility] Comment on above: Performed By: #### L 100.0100 ####[facility] [address] [place], [address] Basophils/100 WBC (Bld) 0.6 % Normal 0-1 [facility] Comment on above: Performed By: #### L 100.0100 ####[facility] [address] [place], [address] Eosinophils/100 WBC (Bld) 1.8 % Normal 0-5 [facility] Comment on above: Performed By: #### L 100.0100 ####[facility] [address] [place], [address] Erythrocyte distribution width (RBC) [Ratio] 13.0 % Normal 11.6-14.6 [facility] Comment on above: Performed By: #### L 100.0100 ####[facility] [address] [place], [address] Hematocrit (Bld) [Volume fraction] 33.9 % Low 40-54 [facility] Comment on above: Performed By: #### L 100.0100 ####[facility] [address] [place], [address] Hemoglobin (Bld) [Mass/Vol] 11.4 g/dL Low 13.0-16.5 [facility] Comment on above: Performed By: #### L 100.0100 ####[facility] [address] [place], [address] IG% 0.600 Normal 0.0-0.9 [facility] Comment on above: Result Comment: IG% - Immature Granulocytes (promyelocytes, myelocytes andmetamyelocytes) > 1% indicates that a LEFT SHIFT is Present. Performed By: #### L 100.0100 ####[facility] [address] [place], [address] Lymphocytes/100 WBC (Bld) 16.0 % Low 19-41 [facility] Comment on above: Performed By: #### L 100.0100 ####[facility] [address] [place], [address] MCH (RBC) [Entitic mass] 27.0 pg Normal 27.0-32.0 [facility] Comment on above: Performed By: #### L 100.0100 ####[facility] [address] [place], [address] MCHC (RBC) [Mass/Vol] 33.6 g/dL Normal 32-36 [facility] Comment on above: Performed By: #### L 100.0100 ####[facility] [address] [place], [address] MCV (RBC) [Entitic vol] 80.3 fL Normal 80-94 [facility] Comment on above: Performed By: #### L 100.0100 ####[facility] [address] [place], [address] Monocytes/100 WBC (Bld) 4.5 % Normal 0-10 [facility] Comment on above: Performed By: #### L 100.0100 ####[facility] [address] [place], [address] Neutrophils/100 WBC (Bld) 76.5 % High 47-70 [facility] Comment on above: Performed By: #### L 100.0100 ####[facility] [address] [place], [address] Nucleated RBC (Bld) [#/Vol] 0 10*3/uL Normal 0-5 [facility] Comment on above: Performed By: #### L 100.0100 ####[facility] [address] [place], [address] Platelet mean volume (Bld) [Entitic vol] 9.4 fL Normal 6.2-12.0 [facility] Comment on above: Performed By: #### L 100.0100 ####[facility] [address] [place], [address] Platelets (Bld) [#/Vol] 248 10*3/uL Normal 150-450 [facility] Comment on above: Performed By: #### L 100.0100 ####[facility] [address] [place], [address] RBC (Bld) [#/Vol] 4.22 10*6/uL Low 4.6-6.2 [facility] Comment on above: Performed By: #### L 100.0100 ####[facility] [address] [place], [address] RDW SD 36.9 fl Normal 35.1-43.9 [facility] Comment on above: Performed By: #### L 100.0100 ####[facility] [address] [place], [address] WBC (Bld) [#/Vol] 8.7 10*3/uL Normal 4.4-11.0 [facility] Comment on above: Performed By: #### L 100.0100 ####[facility] [address] [place], [address] Calcaneus min 2 Viewson 09-19 Calcaneus min 2 Views Normal [facility] Carbon dioxide, total [Moles /volume] in Central venous bloodOrdered By: Ozzy Cabrera on 10-15-2024 CO2 [Moles/Vol] 26.1 mmol/L 21.0-32.0 [facility] Chloride assayOrdered By: Olimpia Cabrera on 10-15-2024 Chloride [Moles/Vol] 101 mmol/L 98-[address] [facility] Eosinophil percentageOrdered By: Teja Avendano on 10-15-2024 Eosinophils/100 WBC (Bld) 1.8 % 0-5 [facility] Erythrocyte distribution wid th ratioOrdered By: Teja Avendano on 10-15-2024 Erythrocyte distribution width (RBC) [Ratio] 13.0 % 11.6-14.6 [facility] Erythrocyte distribution wid th standard deviationOrdered By: Teja Avendano on 10-15-2024 Erythrocyte distribution width (RBC) [Ratio] 36.9 fl 35.1-43.9 [facility] Glomerular filtration rate ( GFR) estimation/1.73 sq m using serum, plasma, or whole bOrdered By: Ozzy Cabrera on 10-15-2024 GFR/1.73 sq M.predicted among non-blacks MDRD (S/P/Bld) [Vol rate/Area] 105 mL/min/{1.73_m2} >60 [facility] Comment on above: mL/min/1.73m2 CKD-EP I Creatinine Equation (2020) Gram Stainon 10-15-2024 GS NO COLLECTION INFO GIVEN UNK UNK CALCANEAL BONE COLLECTED IN OR Gram Stain 1+ White Blood Cells 1+ Red Blood Cells No organisms seen Normal [facility] Comment on above: Performed By: #### M 100.2000, M100.3000, M100.4001 ####[facility] [address] [place], [place], [address] Gram stainOrdered By: Ramon Garcia on 10-15-2024 Microscopic observation Gram stain Nom (Unsp spec) [facility] Hematocrit Auto (Bld) [Volum e fraction]Ordered By: Teja Avendano on 10-15-2024 Hematocrit (Bld) [Volume fraction] 33.9 % Low 40-54 [facility] Hemoglobin measurementOrdere d By: Teja Avendano on 10-15-2024 Hemoglobin (Bld) [Mass/Vol] 11.4 g/dL Low 13.0-16.5 [facility] Immature granulocytes/100 WB C Auto (Bld)Ordered By: Teja Avendano on 10-15-2024 Immature granulocytes/100 WBC (Bld) 0.600 % 0.0-0.9 [facility] Comment on above: IG% - Immature Granu locytes (promyelocytes, myelocytes and metamyelocytes) > 1% indicates that a LEFT SHIFT is Present. MCV (mean corpuscular volume ) determinationOrdered By: Teja Avendano on 10-15-2024 MCV (RBC) [Entitic vol] 80.3 fL 80-94 [facility] MR/POSTOP.ANEon 10-15-2024 MR/POSTOP.ANE Normal [facility] MR/VSLYFDAO6uu 10-15-2024 MR/POSTOPAN2 Normal [facility] Mean corpuscular hemoglobin (MCH) determinationOrdered By: Teja Avendano on 10-15-2024 MCH (RBC) [Entitic mass] 27.0 pg 27.0-32.0 [facility] Mean corpuscular hemoglobin concentration (MCHC) determinationOrdered By: Teja Avendano on 10-15-2024 MCHC (RBC) [Mass/Vol] 33.6 g/dL 32-36 [facility] Mean platelet volume determi nationOrdered By: Teja Avendano on 10-15-2024 Platelet mean volume (Bld) [Entitic vol] 9.4 fL 6.2-12.0 [facility] Monocyte percentageOrdered B y: Teja Avendano on 10-15-2024 Monocytes/100 WBC (Bld) 4.5 % 0-10 [facility] Neutrophil percentageOrdered By: Teja Avendano on 10-15-2024 Neutrophils/100 WBC (Bld) 76.5 % High 47-70 [facility] Nucleated red blood cell per centageOrdered By: Teja Avendano on 10-15-2024 Nucleated RBC/100 WBC (Bld) [Ratio] 0 % 0-5 [facility] Operative Reporton Operative Report Normal [facility] Platelet countOrdered By: Ruben Avendano on 10-15-2024 Platelets (Bld) [#/Vol] 248 10*3/uL 150-450 [facility] Potassium measurement (mass/ volume)Ordered By: Ozzy Cabrera on 10-15-2024 Potassium (Unsp spec) [Mass/Vol] 4.5 mmol/L 3.3-5.1 [facility] RBC Auto (Bld) [#/Vol]Ordere d By: Teja Avendano on 10-15-2024 RBC (Bld) [#/Vol] 4.22 10*6/uL Low 4.6-6.2 [facility] Serum creatinine measurement (mass/volume)Ordered By: Ozzy Cabrera on 10-15-2024 Creatinine [Mass/Vol] 0.58 mg/dL Low 0.70-1.20 [facility] Serum glucose measurement (m ass/volume)Ordered By: Ozzy Cabrera on 10-15-2024 Glucose [Mass/Vol] 260 mg/dL High 70-99 [facility] Serum or plasma calcium everardo urement (mass/volume)Ordered By: Ozzy Cabrera on 10-15-2024 Calcium [Mass/Vol] 8.9 mg/dL 7.6-11.0 [facility] Serum or plasma urea nitroge n measurement (mass/volume)Ordered By: Ozzy Cabrera on 10-15-2024 Urea nitrogen [Mass/Vol] 11 mg/dL 4-19 [facility] Sodium levelOrdered By: Ozzy Cabrera on 10-15-2024 Sodium [Moles/Vol] 136 mmol/L 133-145 [facility] Trough vancomycin levelOrder ed By: Ozzy Cabrera on 10-15-2024 Vancomycin trough [Mass/Vol] 21.7 ug/mL High 5.0-15.0 [facility] Comment on above: Recommended goal tro [...] therapy recommended for serious lifethreatening infections include:- Rjucgmfthb-Zgpctrjfhdkt-Tsewbrago (Ventilator/Healtcare Associated)-Sepsis PLEASE CONTACT PHARMACY SERVICES (#2215) FOR INTERPRETATIONOF RESULTS. Vancomycin, Trough Levelon 0 10-15-2024 VANCO, TROUGH 21.7 ug/mL High 5.0-15.0 [facility] Comment on above: Order Comment: Comme nts: DRAW 30 MIN PRIOR TO [id number] Result Comment: Milton mmended goal trough ranges [...] therapy recommended for serious lifethreatening infections include:- Veuvpsfkvp-Ayqmdborqbpn-Ubfjtfhdl (Ventilator/Healtcare Associated)-SepsisPLEASE CONTACT PHARMACY SERVICES (#3672) FOR INTERPRETATIONOF RESULTS. Performed By: #### L 501.8820 ####[facility] [address] [place], [address] White blood cell (WBC) count Ordered By: Teja Avendano on 10-15-2024 WBC (Bld) [#/Vol] 8.7 10*3/uL 4.4-11.0 [facility] Bedside Glucoseon 10-14-2024 FINGERSTICK GLU 260 mg/dL High [address] [place] [address] Comment on above: Result Comment: REYNA GEMENT OF PATIENT CARE PER NURSING PROTOCOL Performed By: #### L 501.080 ####[facility] [address] [place], [address] FINGERSTICK GLU 250 mg/dL High [address] [place] [address] Comment on above: Result Comment: REYNA GEMENT OF PATIENT CARE PER NURSING PROTOCOL Performed By: #### L 501.080 ####[facility] [address] [place], [address] FINGERSTICK GLU 279 mg/dL High [address] [place] [address] Comment on above: Result Comment: REYNA GEMENT OF PATIENT CARE PER NURSING PROTOCOL Performed By: #### L 501.080 ####[facility] [address] [place], [address] FINGERSTICK GLU 178 mg/dL [address] Comment on above: Result Comment: REYNA GEMENT OF PATIENT CARE PER NURSING PROTOCOL Performed By: #### L 501.080 ####[facility] [address] [place], [address] Wound Cultureon 10-14-2024 [facility] Comment on above: Performed By: #### M 100.2000, M100.4001, M100.3000 ####[facility] [address] [place], [address] Bedside Glucoseon 10-13-2024 FINGERSTICK GLU 260 mg/dL High 74-106 [facility] Comment on above: Result Comment: REYNA GEMENT OF PATIENT CARE PER NURSING PROTOCOL Performed By: #### L 501.080 ####[facility] [address] [place], [address] FINGERSTICK GLU 297 mg/dL High [facility]106 [facility] Comment on above: Result Comment: REYNA GEMENT OF PATIENT CARE PER NURSING PROTOCOL Performed By: #### L 501.080 ####[facility] [address] [place], [address] FINGERSTICK GLU 242 mg/dL High [address] [place] [address] Comment on above: Result Comment: REYNA GEMENT OF PATIENT CARE PER NURSING PROTOCOL Performed By: #### L 501.080 ####[facility] [address] [place], [address] FINGERSTICK GLU 253 mg/dL High [address] [place] [address] Comment on above: Result Comment: REYNA GEMENT OF PATIENT CARE PER NURSING PROTOCOL Performed By: #### L 501.080 ####[facility] [address] [place], [address] Culture, Anaerobic Any Sourc devonte 10-13-2024 CUAN #1 RIGHT HEEL WND (BONE) UNK UNK No anaerobic bacteria isolated. Normal [facility] Comment on above: Performed By: #### M 100.3000, .1999, M100.4001 ####[facility] [address] [place], [address] CUAN SWAB SPECIMENS AEROB IC 4, ANAEROBIC 5- R HEEL WOUND UNK UNK No anaerobic bacteria isolated. [facility] Comment on above: Performed By: #### M 100.4001, M100.3000, M1.2000 ####[facility] [address] [place], [address] CUAN Normal [facility] Comment on above: Performed By: #### M 100.3000, M100.2000, M100.4001 ####[facility] [address] [place], [address] Serum Creatinine AND GFRon 0 10-13-2024 Creatinine [Mass/Vol] 0.64 mg/dL Low 0.70-1.20 [facility] Comment on above: Order Comment: Comme nts: PLEASE DO WITH THE VANC TROUGH Performed By: #### L 501.1105 ####[facility] [address] [place], [address] ECRCL 126.34 ml/min Normal 50-250 [facility] Comment on above: Order Comment: Comme nts: PLEASE DO WITH THE VANC TROUGH Performed By: #### L 501.1105 ####[facility] [address] [place], [address] GFR/1.73 sq M.predicted among non-blacks MDRD (S/P/Bld) [Vol rate/Area] 102 mL/min/{1.73_m2} Normal >60 [facility] Comment on above: Order Comment: Comme nts: PLEASE DO WITH THE VANC TROUGH Result Comment: mL/m in/1.73m2 CKD-EPI Creatinine Equation (2020) Performed By: #### L 501.1105 ####[facility] [address] [place], [address] Serum or plasma vancomycin m easurement (mass/volume)Ordered By: Shaan Hurst on 10-13-2024 Vancomycin [Mass/Vol] 17.6 ug/mL High 0.0-15.0 [facility] Comment on above: VANCOMYCIN STANDARD DRUG THERAPY: CRITICAL VALUE IS > 15.0 mg/L VANCOMYCIN HIGH INTENSITY THERAPY: CRITICAL VALUE IS > 20.0 mg/L PLEASE CONTACT PHARMACY SERVICES (#0650) FOR INTERPRETATIONOF RESULTS. THIS RESULT DOES NOT REPRESENT A PEAK OR TROUGHLEVEL FOR THIS DRUG. Vancomycin, Random Levelon 0 10-13-2024 VANCO, RANDOM 17.6 ug/mL High 0.0-15.0 [facility] Comment on above: Result Comment: VANC OMYCIN STANDARD DRUG THERAPY: CRITICAL VALUE IS > 15.0 mg/LVANCOMYCIN HIGH INTENSITY THERAPY: CRITICAL VALUE IS > 20.0 mg/LPLEASE CONTACT PHARMACY SERVICES (#8956) FOR INTERPRETATIONOF RESULTS. THIS RESULT DOES NOT REPRESENT A PEAK OR TROUGHLEVEL FOR THIS DRUG. Performed By: #### L 501.8850 ####[facility] [address] [facility] [id number] Vancomycin, Trough Levelon 0 10-13-2024 VANCO, TROUGH 23.8 ug/mL High 5.0-15.0 [facility] Comment on above: Order Comment: Comme nts: Trough to be drawn 30 mins prior to scheduled [id number] Result Comment: [place] mmended goal trough ranges [...] therapy recommended for serious lifethreatening infections include:- Vqszongsah-Pqygagsawvix-Hwovmtheg (Ventilator/Healtcare Associated)-SepsisPLEASE CONTACT PHARMACY SERVICES (#5993) FOR INTERPRETATIONOF RESULTS. Performed By: #### L 501.8820 ####[facility] [address] [facility] [id number] Bedside Glucoseon 10-12-2024 FINGERSTICK GLU 285 mg/dL High 74-106 [facility] Comment on above: Result Comment: REYNA GEMENT OF PATIENT CARE PER NURSING PROTOCOL Performed By: #### L 501.080 ####[facility] [address] [facility] [id number] FINGERSTICK GLU 275 mg/dL High 74-106 [facility] Comment on above: Result Comment: REYNA GEMENT OF PATIENT CARE PER NURSING PROTOCOL Performed By: #### L 501.080 ####[facility] [address] [place], [address] FINGERSTICK GLU 294 mg/dL High 74-106 [facility] Comment on above: Result Comment: REYNA GEMENT OF PATIENT CARE PER NURSING PROTOCOL Performed By: #### L 501.080 ####[facility] [address] [place], [address] FINGERSTICK GLU 200 mg/dL High 74-106 [facility] Comment on above: Result Comment: REYNA GEMENT OF PATIENT CARE PER NURSING PROTOCOL Performed By: #### L 501.080 ####[facility] [address] [place], [address] CXR for Line Placementon CXR for Line Placement Normal [facility] CXR for Line Placement Normal [facility] CXR for Line Placement Normal [facility] Consultation - Infectious Dx on 10-12-2024 Consultation - Infectious Dx Normal [facility] Culture, Blood (WB)on 2024 CUB Normal [facility] Comment on above: Performed By: #### L 503.6005, BTS, L100.0100, L101.9900, L500.4050, M200.1000, L300.3900, L501.6710 ####[facility] [address] [place], [address] Gram Stainon 10-12-2024 GS 2-RIGHT HEEL WOUND UNK UNK Gram Stain 2+ Gram positive rods 2+ Gram positive cocci 1+ White Blood Cells Normal [facility] Comment on above: Performed By: #### M 100.2000, M100.4001, M100.3000 ####[facility] [address] [place], [address] GS SWAB SPECIMENS AEROB IC 4, ANAEROBIC 5- R HEEL WOUND UNK UNK Gram Stain No organisms seen Normal [facility] Comment on above: Performed By: #### M 100.4001, M100.3000, ####[facility] [address] [place], [address] GS #1 RIGHT HEEL WND (BONE) UNK UNK Gram Stain 2+ White Blood Cells No organisms seen Normal [facility] Comment on above: Performed By: #### M 100.3000, M100.1999, M100.4001 ####[facility] [address] [place], [address] Wound Cultureon 10-12-2024 WC #1 RIGHT HEEL WND (BONE) UNK UNK No growth aerobically. Normal [facility] Comment on above: Performed By: #### M 100.3000, .1999, M1.4001 ####[facility] [address] [place], [address] WC Normal [facility] Comment on above: Performed By: #### M 100.3000, .1999, M1.4001 ####[facility] [address] [place], [address] Anaerobic cultureOrdered By: Ramon Garcia on 10-11-2024 Bacteria identified Anaer cx Nom (Unsp spec) Anaerobic cocci Abnormal [facility] Bacteria identified Anaer cx Nom (Unsp spec) Bacteroides thetaiotaomicron Abnormal [facility] Bacteria identified Anaer cx Nom (Unsp spec) Clostridium ramosum Abnormal [facility] Bacteria identified Anaer cx Nom (Unsp spec) No anaerobic bacteria isolated. [facility] Bacteria identified Anaer cx Nom (Unsp spec) No anaerobic bacteria isolated. [facility] Bedside Glucoseon 10-11-2024 FINGERSTICK GLU 261 mg/dL High 74-106 [facility] Comment on above: Result Comment: REYNA LAIRD OF PATIENT CARE PER NURSING PROTOCOL Performed By: #### L 501.080 ####[facility] [address] [place], [address] FINGERSTICK GLU 272 mg/dL High 74-106 [facility] Comment on above: Result Comment: REYNA GEMENT OF PATIENT CARE PER NURSING PROTOCOL Performed By: #### L 501.080 ####[facility] [address] [place], [address] FINGERSTICK GLU 221 mg/dL High 74-106 [facility] Comment on above: Result Comment: REYNA GEMENT OF PATIENT CARE PER NURSING PROTOCOL Performed By: #### L 501.080 ####[facility] [address] [place], [address] FINGERSTICK GLU 230 mg/dL High 74-106 [facility] Comment on above: Result Comment: REYNA GEMENT OF PATIENT CARE PER NURSING PROTOCOL Performed By: #### L 501.080 ####[facility] [address] [place], [address] FINGERSTICK GLU 291 mg/dL High 74-106 [facility] Comment on above: Result Comment: REYNA GEMENT OF PATIENT CARE PER NURSING PROTOCOL Performed By: #### L 501.080 ####[facility] [address] [place], [address] Culture, Blood (WB)on 2024 CUB Normal [facility] Comment on above: Performed By: #### M 200.1000 ####[facility] [address] [place], [address] Gram stainOrdered By: Ramon Garcia on 10-11-2024 Microscopic observation Gram stain Nom (Unsp spec) [facility] Microscopic observation Gram stain Nom (Unsp spec) [facility] Microscopic observation Gram stain Nom (Unsp spec) [facility] MR/POSTOP.ANEon 10-11-2024 MR/POSTOP.ANE Normal [facility] MR/FEGQUMRZ8js 10-11-2024 MR/POSTOPAN2 Normal [facility] Operative Reporton Operative Report Normal [facility] Routine wound cultureOrdered By: Ramon Garcia on 10-11-2024 Microbial culture, routine Streptococcus mitis/ oralis Abnormal [facility] Microbial culture, routine Morganella morganii sp sibonii Abnormal [facility] Microbial culture, routine Corynebacterium urealyticum Abnormal [facility] Surgery Specimen Level IIIon 10-11-2024 Surgery Specimen Level III Normal [facility] Comment on above: Performed By: #### P SUIII ####[facility] [address] [place], [address] TSH DL <= 0.005 mIU/L QnOrde red By: Francisco Abarca on 10-11-2024 TSH Qn 0.848 uIU/mL 0.300-4.200 [facility] Thyroid Stim Hormone (TSH)on 10-11-2024 TSH 0.848 uIU/mL Normal 0.300-4.200 [facility] Comment on above: Performed By: #### L 501.9579 ####[facility] [address] [place], [address] Vancomycin, Trough Levelon 0 10-11-2024 VANCO, TROUGH 14.2 ug/mL Normal 5.0-15.0 [facility] Comment on above: Order Comment: 0300 [...] therapy recommended for serious lifethreatening infections include:- Wrvyjqvlsi-Txcxdhbrcxhi-Fkgbjcrjs (Ventilator/Healtcare Associated)-SepsisPLEASE CONTACT PHARMACY SERVICES (#8431) FOR INTERPRETATIONOF RESULTS. Performed By: #### L 501.8841 ####[facility] [address] [place], [place], [id number] Basic Metabolic Profile (BMP )on 10-10-2024 BUN/CRE 12.0 RATIO Normal 10-20 [facility] Comment on above: Performed By: #### L 500.2500, L100.0100, L501.9985 ####[facility] [address] [place], [address] Calcium [Mass/Vol] 8.5 mg/dL Normal 7.6-11.0 [facility] Comment on above: Performed By: #### L 500.2500, L100.0100, L501.9985 ####[facility] [address] [place], [address] Chloride [Moles/Vol] 98 mmol/L Normal 98-[address] [facility] Comment on above: Performed By: #### L 500.2500, L100.0100, L501.9985 ####[facility] [address] [place], [address] CO2 [Moles/Vol] 27.0 mmol/L Normal 21.0-32.0 [facility] Comment on above: Performed By: #### L 500.2500, L100.0100, L501.9985 ####[facility] [address] [place], [address] Creatinine [Mass/Vol] 0.65 mg/dL Low 0.70-1.20 [facility] Comment on above: Performed By: #### L 500.2500, L100.0100, L501.9985 ####[facility] [address] [place], [address] ECRCL 126.34 ml/min Normal 50-250 [facility] Comment on above: Performed By: #### L 500.2500, L100.0100, L501.9985 ####[facility] [address] [place], [address] GAP 11 Normal 5-15 [facility] Comment on above: Performed By: #### L 500.2500, L100.0100, L501.9985 ####[facility] [address] [place], [address] GFR/1.73 sq M.predicted among non-blacks MDRD (S/P/Bld) [Vol rate/Area] 101 mL/min/{1.73_m2} Normal >60 [facility] Comment on above: Result Comment: mL/m in/1.73m2 CKD-EPI Creatinine Equation (2020) Performed By: #### L 500.2500, L100.0100, L501.9985 ####[facility] [address] [place], [address] Glucose [Mass/Vol] 254 mg/dL High 70-99 [facility] Comment on above: Performed By: #### L 500.2500, L100.0100, L501.9985 ####[facility] [address] [place], [address] Potassium [Moles/Vol] 4.2 mmol/L Normal 3.3-5.1 [facility] Comment on above: Performed By: #### L 500.2500, L100.0100, L501.9985 ####[facility] [address] [place], [address] Sodium [Moles/Vol] 136 mmol/L Normal 133-145 [facility] Comment on above: Performed By: #### L 500.2500, L100.0100, L501.9985 ####[facility] [address] [place], [address] Urea nitrogen [Mass/Vol] 8 mg/dL Normal 4-19 [facility] Comment on above: Performed By: #### L 500.2500, L100.0100, L501.9985 ####[facility] [address] [place], [address] Bedside Glucoseon 10-10-2024 FINGERSTICK GLU 298 mg/dL High 74-106 [facility] Comment on above: Result Comment: REYNA GEMENT OF PATIENT CARE PER NURSING PROTOCOL Performed By: #### L 501.080 ####[facility] [address] [place], [address] FINGERSTICK GLU 287 mg/dL High 74-106 [facility] Comment on above: Result Comment: REYNA GEMENT OF PATIENT CARE PER NURSING PROTOCOL Performed By: #### L 501.080 ####[facility] [address] [place], [address] FINGERSTICK GLU 304 mg/dL High 74-106 [facility] Comment on above: Result Comment: REYNA GEMENT OF PATIENT CARE PER NURSING PROTOCOL Performed By: #### L 501.080 ####[facility] [address] [place], [address] FINGERSTICK GLU 268 mg/dL High 74-106 [facility] Comment on above: Result Comment: REYNA GEMENT OF PATIENT CARE PER NURSING PROTOCOL Performed By: #### L 501.080 ####[facility] [address] [place], [address] CBC W/Diff, Automatedon 04-2 -2024 Absolute Lymph 1.60 X10 3/uL Normal 0.83-4.51 [facility] Comment on above: Performed By: #### L 500.2500, L100.0100, L501.9985 ####[facility] [address] [place], [address] Absolute Neut 5.1 X10 3/uL Normal 2.0-7.7 [facility] Comment on above: Performed By: #### L 500.2500, L100.0100, L501.9985 ####[facility] [address] [place], [address] Basophils/100 WBC (Bld) 0.5 % Normal 0-1 [facility] Comment on above: Performed By: #### L 500.2500, L100.0100, L501.9985 ####[facility] [address] [place], [address] Eosinophils/100 WBC (Bld) 2.3 % Normal 0-5 [facility] Comment on above: Performed By: #### L 500.2500, L100.0100, L501.9985 ####[facility] [address] [place], [address] Erythrocyte distribution width (RBC) [Ratio] 12.9 % Normal 11.6-14.6 [facility] Comment on above: Performed By: #### L 500.2500, L100.0100, L501.9985 ####[facility] [address] [place], [address] Hematocrit (Bld) [Volume fraction] 36.7 % Low 40-54 [facility] Comment on above: Performed By: #### L 500.2500, L100.0100, L501.9985 ####[facility] [address] [place], [address] Hemoglobin (Bld) [Mass/Vol] 12.2 g/dL Low 13.0-16.5 [facility] Comment on above: Performed By: #### L 500.2500, L100.0100, L501.9985 ####[facility] [address] [place], [address] IG% 0.400 Normal 0.0-0.9 [facility] Comment on above: Result Comment: IG% - Immature Granulocytes (promyelocytes, myelocytes andmetamyelocytes) > 1% indicates that a LEFT SHIFT is Present. Performed By: #### L 500.2500, L100.0100, L501.9985 ####[facility] [address] [place], [address] Lymphocytes/100 WBC (Bld) 21.2 % Normal 19-41 [facility] Comment on above: Performed By: #### L 500.2500, L100.0100, L501.9985 ####[facility] [address] [place], [address] MCH (RBC) [Entitic mass] 27.4 pg Normal 27.0-32.0 [facility] Comment on above: Performed By: #### L 500.2500, L100.0100, L501.9985 ####[facility] [address] [place], [address] MCHC (RBC) [Mass/Vol] 33.2 g/dL Normal 32-36 [facility] Comment on above: Performed By: #### L 500.2500, L100.0100, L501.9985 ####[facility] [address] [place], [address] MCV (RBC) [Entitic vol] 82.5 fL Normal 80-94 [facility] Comment on above: Performed By: #### L 500.2500, L100.0100, L501.9985 ####[facility] [address] [place], [address] Monocytes/100 WBC (Bld) 8.2 % Normal 0-10 [facility] Comment on above: Performed By: #### L 500.2500, L100.0100, L501.9985 ####[facility] [address] [place], [address] Neutrophils/100 WBC (Bld) 67.4 % Normal 47-70 [facility] Comment on above: Performed By: #### L 500.2500, L100.0100, L501.9985 ####[facility] [address] [place], [address] Nucleated RBC (Bld) [#/Vol] 0 10*3/uL Normal 0-5 [facility] Comment on above: Performed By: #### L 500.2500, L100.0100, L501.9985 ####[facility] [address] [place], [address] Platelet mean volume (Bld) [Entitic vol] 9.7 fL Normal 6.2-12.0 [facility] Comment on above: Performed By: #### L 500.2500, L100.0100, L501.9985 ####[facility] [address] [place], [address] Platelets (Bld) [#/Vol] 231 10*3/uL Normal 150-450 [facility] Comment on above: Performed By: #### L 500.2500, L100.0100, L501.9985 ####[facility] [address] [place], [address] RBC (Bld) [#/Vol] 4.45 10*6/uL Low 4.6-6.2 [facility] Comment on above: Performed By: #### L 500.2500, L100.0100, L501.9985 ####[facility] [address] [place], [address] RDW SD 38.8 fl Normal 35.1-43.9 [facility] Comment on above: Performed By: #### L 500.2500, L100.0100, L501.9985 ####[facility] [address] [place], [address] WBC (Bld) [#/Vol] 7.5 10*3/uL Normal 4.4-11.0 [facility] Comment on above: Performed By: #### L 500.2500, L100.0100, L501.9985 ####[facility] [address] [place], [address] Gram Stainon 10-10-2024 GS List Antibiotics [place] 48 Hours? merrem List Antibiotics to be Started? vancomycin right heel Gram Stain 3+ Gram positive cocci 3+ Gram negative rods Rare Gram positive rods No cells seen Normal [facility] Comment on above: Performed By: #### M 100.3000, M100.2000, M100.4001 ####[facility] [address] [facility] [address] [place], [place], [address] Hemoglobin A1con 10-10-2024 HbA1c (Bld) [Mass fraction] 10.9 % High <=5.6 [facility] Comment on above: Result Comment: Norm al < 5.7 % Prediabetic 5.7 - 6.4 % Diabetic >or= 6.5 % Please note range changes. Performed By: #### L 500.2500, L100.0100, L501.9985 ####[facility] [address] [place], [place], [address] Hemoglobin A1c percentageOrd ered By: Chula Antunez on 10-10-2024 HbA1c (Bld) [Mass fraction] 10.9 % High <5.7 [facility] Comment on above: Normal < 5.7 % Predi abetic 5.7 - 6.4 % Diabetic >or= 6.5 % Please note range changes. Lower Ext Joint Only (Routin e)on 10-10-2024 Lower Ext Joint Only (Routine) Normal [facility] Absolute neutrophil countOrd ered By: Logan Gifford on 2024 Neutrophils (Bld) [#/Vol] 9.4 10*3/uL High 2.0-7.7 [facility] Activated partial thrombopla stin time (aPTT) in platelet poor plasma by coagulation aOrdered By: Logan Gifford on 2024 aPTT Coag (PPP) [Time] 32.3 s 24.1-36.2 [facility] Anaerobic cultureOrdered By: Logan Gifford on 2024 Bacteria identified Anaer cx Nom (Unsp spec) Bacteroides thetaiotaomicron Abnormal [facility] Bacteria identified Anaer cx Nom (Unsp spec) Clostridium ramosum Abnormal [facility] Anion gap in Serum or Plasma Ordered By: Logan Gifford on 2024 Anion gap [Moles/Vol] 14 mmol/L 5-15 [facility] BUN/creatinine ratioOrdered By: Logan Gifford on 2024 Urea nitrogen/Creatinine [Mass ratio] 9.6 mg/mg Low 10-20 [facility] Basophil percentageOrdered B y: Logan Gifford on 2024 Basophils/100 WBC (Bld) 0.4 % 0-1 [facility] Bedside Glucoseon 2024 FINGERSTICK GLU 306 mg/dL High 74-106 [facility] Comment on above: Result Comment: REYNA GEMENT OF PATIENT CARE PER NURSING PROTOCOL Performed By: #### L 501.080 ####[facility] [address] [facility] [address] FINGERSTICK GLU 320 mg/dL High 74-106 [facility] Comment on above: Result Comment: REYNA GEMENT OF PATIENT CARE PER NURSING PROTOCOL Performed By: #### L 501.080 ####[facility] [address] [place], [address] Bilirubin, totalOrdered By: Logan Ирина on 2024 Bilirubin [Mass/Vol] 0.88 mg/dL 0.00-1.[address] [facility] Blood cultureOrdered By: Aurelio cezar Ирина on 2024 Bacteria identified Cx Nom (Bld) Negative Abnormal [facility] Bacteria identified Cx Nom (Bld) Staphylococcus epidermidis Abnormal [facility] CBC W/Diff, Automatedon 09-19 Absolute Lymph 1.04 X10 3/uL Normal 0.83-4.51 [facility] Comment on above: Performed By: #### L 503.6005, BTS, L100.0100, L101.9900, L500.4050, M200.1000, L300.3900, L501.6710 ####[facility] [address] [place], [address] Absolute Neut 9.4 X10 3/uL High 2.0-7.7 [facility] Comment on above: Performed By: #### L 503.6005, BTS, L100.0100, L101.9900, L500.4050, M200.1000, L300.3900, L501.6710 ####[facility] [address] [place], [address] Basophils/100 WBC (Bld) 0.4 % Normal 0-1 [facility] Comment on above: Performed By: #### L 503.6005, BTS, L100.0100, L101.9900, L500.4050, M200.1000, L300.3900, L501.6710 ####[facility] [address] [place], [address] Eosinophils/100 WBC (Bld) 0.7 % Normal 0-5 [facility] Comment on above: Performed By: #### L 503.6005, BTS, L100.0100, L101.9900, L500.4050, M200.1000, L300.3900, L501.6710 ####[facility] [address] [place], [address] Erythrocyte distribution width (RBC) [Ratio] 12.8 % Normal 11.6-14.6 [facility] Comment on above: Performed By: #### L 503.6005, BTS, L100.0100, L101.9900, L500.4050, M200.1000, L300.3900, L501.6710 ####[facility] [address] [place], [address] Hematocrit (Bld) [Volume fraction] 38.6 % Low 40-54 [facility] Comment on above: Performed By: #### L 503.6005, BTS, L100.0100, L101.9900, L500.4050, M200.1000, L300.3900, L501.6710 ####[facility] [address] [place], [address] Hemoglobin (Bld) [Mass/Vol] 12.8 g/dL Low 13.0-16.5 [facility] Comment on above: Performed By: #### L 503.6005, BTS, L100.0100, L101.9900, L500.4050, M200.1000, L300.3900, L501.6710 ####[facility] [address] [place], [address] IG% 0.400 Normal 0.0-0.9 [facility] Comment on above: Result Comment: IG% - Immature Granulocytes (promyelocytes, myelocytes andmetamyelocytes) > 1% indicates that a LEFT SHIFT is Present. Performed By: #### L 503.6005, BTS, L100.0100, L101.9900, L500.4050, M200.1000, L300.3900, L501.6710 ####[facility] [address] [place], [address] Lymphocytes/100 WBC (Bld) 9.2 % Low 19-41 [facility] Comment on above: Performed By: #### L 503.6005, BTS, L100.0100, L101.9900, L500.4050, M200.1000, L300.3900, L501.6710 ####[facility] [address] [place], [address] MCH (RBC) [Entitic mass] 26.8 pg Low 27.0-32.0 [facility] Comment on above: Performed By: #### L 503.6005, BTS, L100.0100, L101.9900, L500.4050, M200.1000, L300.3900, L501.6710 ####[facility] [address] [place], [address] MCHC (RBC) [Mass/Vol] 33.2 g/dL Normal 32-36 [facility] Comment on above: Performed By: #### L 503.6005, BTS, L100.0100, L101.9900, L500.4050, M200.1000, L300.3900, L501.6710 ####[facility] [address] [place], [address] MCV (RBC) [Entitic vol] 80.8 fL Normal 80-94 [facility] Comment on above: Performed By: #### L 503.6005, BTS, L100.0100, L101.9900, L500.4050, M200.1000, L300.3900, L501.6710 ####[facility] [address] [place], [address] Monocytes/100 WBC (Bld) 6.5 % Normal 0-10 [facility] Comment on above: Performed By: #### L 503.6005, BTS, L100.0100, L101.9900, L500.4050, M200.1000, L300.3900, L501.6710 ####[facility] [address] [place], [address] Neutrophils/100 WBC (Bld) 82.8 % High 47-70 [facility] Comment on above: Performed By: #### L 503.6005, BTS, L100.0100, L101.9900, L500.4050, M200.1000, L300.3900, L501.6710 ####[facility] [address] [place], [address] Nucleated RBC (Bld) [#/Vol] 0 10*3/uL Normal 0-5 [facility] Comment on above: Performed By: #### L 503.6005, BTS, L100.0100, L101.9900, L500.4050, M200.1000, L300.3900, L501.6710 ####[facility] [address] [place], [address] Platelet mean volume (Bld) [Entitic vol] 9.8 fL Normal 6.2-12.0 [facility] Comment on above: Performed By: #### L 503.6005, BTS, L100.0100, L101.9900, L500.4050, M200.1000, L300.3900, L501.6710 ####[facility] [address] [place], [address] Platelets (Bld) [#/Vol] 243 10*3/uL Normal 150-450 [facility] Comment on above: Performed By: #### L 503.6005, BTS, L100.0100, L101.9900, L500.4050, M200.1000, L300.3900, L501.6710 ####[facility] [address] [place], [address] RBC (Bld) [#/Vol] 4.78 10*6/uL Normal 4.6-6.2 [facility] Comment on above: Performed By: #### L 503.6005, BTS, L100.0100, L101.9900, L500.4050, M200.1000, L300.3900, L501.6710 ####[facility] [address] [place], [address] RDW SD 37.2 fl Normal 35.1-43.9 [facility] Comment on above: Performed By: #### L 503.6005, BTS, L100.0100, L101.9900, L500.4050, M200.1000, L300.3900, L501.6710 ####[facility] [address] [place], [address] WBC (Bld) [#/Vol] 11.3 10*3/uL High 4.4-11.0 [facility] Comment on above: Performed By: #### L 503.6005, BTS, L100.0100, L101.9900, L500.4050, M200.1000, L300.3900, L501.6710 ####[facility] [address] [place], [address] CRPon 2024 C-REACTIVE PROT 141.00 mg/L High 0.0-3.0 [facility] Comment on above: Performed By: #### L 503.6005, BTS, L100.0100, L101.9900, L500.4050, M200.1000, L300.3900, L501.6710 ####[facility] [address] [place], [address] CRP [Mass/Vol]Ordered By: Master Gifford on 2024 C-Reactive Protein Extended Range 141.00 mg/L High 0.0-3.0 [facility] Carbon dioxide, total [Moles /volume] in Central venous bloodOrdered By: Logan Gifford on 2024 CO2 [Moles/Vol] 27.8 mmol/L 21.0-32.0 [facility] Chest 1 View (Portable)on Chest 1 View (Portable) Normal [facility] Chloride assayOrdered By: Master Gifford on 2024 Chloride [Moles/Vol] 93 mmol/L Low 98-[address] [facility] Comprehensive Metabolic Prof ilon 2024 Albumin [Mass/Vol] 3.5 g/dL Normal 3.4-4.8 [facility] Comment on above: Performed By: #### L 503.6005, BTS, L100.0100, L101.9900, L500.4050, M200.1000, L300.3900, L501.6710 ####[facility] [address] [place], [address] Albumin/Globulin [Mass ratio] 0.9 {ratio} Normal 0.9-2.4 [facility] Comment on above: Performed By: #### L 503.6005, BTS, L100.0100, L101.9900, L500.4050, M200.1000, L300.3900, L501.6710 ####[facility] [address] [place], [address] ALK PHOS 104 U/L Normal 40-129 [facility] Comment on above: Performed By: #### L 503.6005, BTS, L100.0100, L101.9900, L500.4050, M200.1000, L300.3900, L501.6710 ####[facility] [address] [place], [address] ALT [Catalytic activity/Vol] 11 U/L Normal <=46 [facility] Comment on above: Performed By: #### L 503.6005, BTS, L100.0100, L101.9900, L500.4050, M200.1000, L300.3900, L501.6710 ####[facility] [address] [place], [address] AST [Catalytic activity/Vol] 18 U/L Normal <=37 [facility] Comment on above: Performed By: #### L 503.6005, BTS, L100.0100, L101.9900, L500.4050, M200.1000, L300.3900, L501.6710 ####[facility] [address] [place], [address] Bilirubin [Mass/Vol] 0.88 mg/dL Normal 0.00-1.[address] [facility] Comment on above: Performed By: #### L 503.6005, BTS, L100.0100, L101.9900, L500.4050, M200.1000, L300.3900, L501.6710 ####[facility] [address] [place], [address] BUN/CRE 9.6 RATIO Low 10-20 [facility] Comment on above: Performed By: #### L 503.6005, BTS, L100.0100, L101.9900, L500.4050, M200.1000, L300.3900, L501.6710 ####[facility] [address] [place], [address] Calcium [Mass/Vol] 9.0 mg/dL Normal 7.6-11.0 [facility] Comment on above: Performed By: #### L 503.6005, BTS, L100.0100, L101.9900, L500.4050, M200.1000, L300.3900, L501.6710 ####[facility] [address] [place], [address] Chloride [Moles/Vol] 93 mmol/L Low 98-[address] [facility] Comment on above: Performed By: #### L 503.6005, BTS, L100.0100, L101.9900, L500.4050, M200.1000, L300.3900, L501.6710 ####[facility] [address] [place], [address] CO2 [Moles/Vol] 27.8 mmol/L Normal 21.0-32.0 [facility] Comment on above: Performed By: #### L 503.6005, BTS, L100.0100, L101.9900, L500.4050, M200.1000, L300.3900, L501.6710 ####[facility] [address] [place], [address] Creatinine [Mass/Vol] 0.81 mg/dL Normal 0.70-1.20 [facility] Comment on above: Performed By: #### L 503.6005, BTS, L100.0100, L101.9900, L500.4050, M200.1000, L300.3900, L501.6710 ####[facility] [address] [place], [address] GAP 14 Normal 5-15 [facility] Comment on above: Performed By: #### L 503.6005, BTS, L100.0100, L101.9900, L500.4050, M200.1000, L300.3900, L501.6710 ####[facility] [address] [place], [address] GFR/1.73 sq M.predicted among non-blacks MDRD (S/P/Bld) [Vol rate/Area] 95 mL/min/{1.73_m2} Normal >60 [facility] Comment on above: Result Comment: mL/m in/1.73m2 CKD-EPI Creatinine Equation (2020) Performed By: #### L 503.6005, BTS, L100.0100, L101.9900, L500.4050, M200.1000, L300.3900, L501.6710 ####[facility] [address] [place], [address] Globulin (S) [Mass/Vol] 3.8 g/dL Normal 2.2-4.2 [facility] Comment on above: Performed By: #### L 503.6005, BTS, L100.0100, L101.9900, L500.4050, M200.1000, L300.3900, L501.6710 ####[facility] [address] [place], [address] Glucose [Mass/Vol] 384 mg/dL High 70-99 [facility] Comment on above: Performed By: #### L 503.6005, BTS, L100.0100, L101.9900, L500.4050, M200.1000, L300.3900, L501.6710 ####[facility] [address] [place], [address] Potassium [Moles/Vol] 3.9 mmol/L Normal 3.3-5.1 [facility] Comment on above: Performed By: #### L 503.6005, BTS, L100.0100, L101.9900, L500.4050, M200.1000, L300.3900, L501.6710 ####[facility] [address] [place], [place], [address] Sodium [Moles/Vol] 134 mmol/L Normal 133-145 [facility] Comment on above: Performed By: #### L 503.6005, BTS, L100.0100, L101.9900, L500.4050, M200.1000, L300.3900, L501.6710 ####[facility] [address] [place], [address] T PROT 7.3 g/dL Normal 5.9-8.4 [facility] Comment on above: Performed By: #### L 503.6005, BTS, L100.0100, L101.9900, L500.4050, M200.1000, L300.3900, L501.6710 ####[facility] [address] [place], [place], [address] Urea nitrogen [Mass/Vol] 8 mg/dL Normal 4-19 [facility] Comment on above: Performed By: #### L 503.6005, BTS, L100.0100, L101.9900, L500.4050, M200.1000, L300.3900, L501.6710 ####[facility] [address] [place], [place], [address] Emergency Department Summary on 2024 Emergency Department Summary Normal [facility] Eosinophil percentageOrdered By: Logan Gifford on 2024 Eosinophils/100 WBC (Bld) 0.7 % 0-5 [facility] Erythrocyte Sed Rateon 10-09 SED RATE 30 mm/hr High 0-20 [facility] Comment on above: Performed By: #### L 503.6005, BTS, L100.0100, L101.9900, L500.4050, M200.1000, L300.3900, L501.6710 ####[facility] [address] [place], [place], [id number] Erythrocyte distribution wid th (RBC) [Ratio]Ordered By: Logan Gifford on 2024 Erythrocyte distribution width (RBC) [Entitic vol] 37.2 fL 35.1-43.9 [facility] Erythrocyte distribution wid th ratioOrdered By: Logan Gifford on 2024 Erythrocyte distribution width (RBC) [Ratio] 12.8 % 11.6-14.6 [facility] Erythrocyte sedimentation ra teOrdered By: Logan Gifford on 2024 ESR (Bld) [Velocity] 30 mm/h High 0-[address] [facility] Foot min 3 Viewson 5 Foot min 3 Views Normal [facility] GFR/1.73 sq M.predicted marco g non-blacks MDRD (S/P/Bld) [Vol rate/Area]Ordered By: Logan Gifford on 2024 Estimated GFR (MDRD) Non-Af Amer 95 >60 [facility] Comment on above: mL/min/1.73m2 CKD-EP I Creatinine Equation (2020) [facility] deOrdered By: Ramon Garcia on 2024 Glucose [Mass/Vol] 287 mg/dL High 74-106 [facility] Comment on above: MANAGEMENT OF PATIEN T CARE PER NURSING PROTOCOL Gram stainOrdered By: Logan mejias on 2024 Microscopic observation Gram stain Nom (Unsp spec) [facility] H AND P Exam - Hospitaliston 2024 H&P Exam - Hospitalist Normal [facility] Hematocrit Auto (Bld) [Volum e fraction]Ordered By: Logan Gifford on 2024 Hematocrit (Bld) [Volume fraction] 38.6 % Low 40-54 [facility] Hemoglobin measurementOrdere d By: Logan Gifford on 2024 Hemoglobin (Bld) [Mass/Vol] 12.8 g/dL Low 13.0-16.5 [facility] Immature granulocytes/100 WB C Auto (Bld)Ordered By: Logan Gifford on 2024 Immature granulocytes/100 WBC (Bld) 0.400 % 0.0-0.9 [facility] Comment on above: IG% - Immature Granu locytes (promyelocytes, myelocytes and metamyelocytes) > 1% indicates that a LEFT SHIFT is Present. International normalized rat io (INR) calculationOrdered By: Logan Gifford on 2024 INR Coag (Bld) [Relative time] 1.3 {INR} [facility] Laboratory - Chemistry and C hemistry - challengeOrdered By: Logan Gifford on 2024 AST [Catalytic activity/Vol] 18 U/L <38 [facility] Lactic Acidon 2024 Lactate [Moles/Vol] 3.6 mmol/L Invalid Interpretation Code 0.0-2.0 [facility] Comment on above: Order Comment: Y [...] BTS, L100.0100, L101.9900, L500.4050, M200.1000, L300.3900, L501.6710 ####[facility] [address] [place], [place], [id number] Lactate [Moles/Vol] 2.5 mmol/L Invalid Interpretation Code 0.0-2.0 [facility] Comment on above: Result Comment: Crit ical Result(s) Called LDOTTERER at: 1902 by:LEANNA??Results read back by same. Performed By: #### L 503.6005 ####[facility] [address] [place], [address] Lactic acid measurementOrder ed By: Logan Gifford on 2024 Lactate [Moles/Vol] 2.5 mmol/L High 0.0-2.0 [facility] Comment on above: Critical Result(s) C alled LDOTTERER at: 1902 by: LEANNA Results read back by same. Lactate [Moles/Vol] 3.6 mmol/L High 0.0-2.0 [facility] Comment on above: Critical Result(s) C alled [...] Lymphocytes (Bld) [#/Vol] 1.04 10*3/uL 0.83-4.5 1 [facility] Lymphocytes/100 WBC Auto (Un sp spec)Ordered By: Logan Gifford on 2024 Lymphocytes/100 WBC (Bld) 9.2 % Low 19-41 [facility] MCV (mean corpuscular volume ) determinationOrdered By: Logan Gifford on 2024 MCV (RBC) [Entitic vol] 80.8 fL 80-94 [facility] Mean corpuscular hemoglobin (MCH) determinationOrdered By: Logan Gifford on 2024 MCH (RBC) [Entitic mass] 26.8 pg Low 27.0-32.0 [facility] Mean corpuscular hemoglobin concentration (MCHC) determinationOrdered By: Logan Gifford on 2024 MCHC (RBC) [Mass/Vol] 33.2 g/dL 32-36 [facility] Mean platelet volume determi nationOrdered By: Logan Gifford on 2024 Platelet mean volume (Bld) [Entitic vol] 9.8 fL 6.2-12.0 [facility] Monocyte percentageOrdered B y: Logan Gifford on 2024 Monocytes/100 WBC (Bld) 6.5 % 0-10 [facility] Neutrophil percentageOrdered By: Logan Gifford on 2024 Neutrophils/100 WBC (Bld) 82.8 % High 47-70 [facility] No Panel InformationOrdered By: Logan Gifford on 2024 18 U/L <38 [facility] Nucleated red blood cell per centageOrdered By: Logan Gifford on 2024 Nucleated RBC/100 WBC (Bld) [Ratio] 0 % 0-5 [facility] Partial Thromboplast Timeon 2024 aPTT Coag (Bld) [Time] 32.3 s Normal 24.1-36.2 [facility] Comment on above: Order Comment: RED W. PREVIOUS SPECIMEN REJECTED DUE TOQNS. 10/09/24 1406 Karla Gomez. Performed By: #### L 300.3900, L300.4310 ####[facility] [address] [place], [place], [address] Platelet countOrdered By: Master frazier Ирина on 2024 Platelets (Bld) [#/Vol] 243 10*3/uL 150-450 [facility] Potassium (Unsp spec) [Mass/ Vol]Ordered By: Logan Le on 2024 Potassium [Moles/Vol] 3.9 mmol/L 3.3-5.1 [facility] Prothrombin Time w/INRon INR Coag (PPP) [Relative time] 1.3 {INR} Normal [facility] Comment on above: Order Comment: RED W. PREVIOUS SPECIMEN REJECTED DUE TOQNS. 10/09/24 1406 Karla Gomez. Performed By: #### L 300.3900, L300.4310 ####[facility] [address] [place], [address] PT Coag (PPP) [Time] 16.6 s High 11.7-14.[address] [facility] Comment on above: Order Comment: CATALINA Mandel PREVIOUS SPECIMEN REJECTED DUE TOQNS. 10/09/24 1406 Karla Gomez. Performed By: #### L 300.3900, L300.4310 ####[facility] [address] [place], [place], [phone] INR Normal [facility] Comment on above: Result Comment: This specimen has been REJECTED due to Laboratory criteria:Quanity Not Sufficient.JUANA has been notified of need of recollection.10/09/24 140 Karla Gomez Performed By: #### L 503.6005, BTS, L100.0100, L101.9900, L500.4050, M200.1000, L300.3900, L501.6710 ####[facility] [address] [place], [address] PROTIME Normal 11.7-14.9 [facility] Comment on above: Result Comment: This specimen has been REJECTED due to Laboratory criteria:Quanity Not Sufficient.JUANA has been notified of need of recollection.10/09/241404 Karla Gomez Performed By: #### L 503.6005, BTS, L100.0100, L101.9900, L500.4050, M200.1000, L300.3900, L501.6710 ####[facility] [address] [place], [address] Prothrombin timeOrdered By: Logan Gifford on 2024 PT Coag (PPP) [Time] 16.6 s High 11.7-14.[address] [facility] RBC Auto (Bld) [#/Vol]Ordere d By: Logan Gifford on 2024 RBC (Bld) [#/Vol] 4.78 10*6/uL 4.6-6.2 [facility] Serum creatinine measurement (mass/volume)Ordered By: Logan Gifford on 2024 Creatinine [Mass/Vol] 0.81 mg/dL 0.70-1.20 [facility] Serum globulin measurementOr dered By: Logan Gifford on 2024 Globulin (S) [Mass/Vol] 3.8 g/dL 2.2-4.2 [facility] Serum glucose measurement (m ass/volume)Ordered By: Logan Gifford on 2024 Glucose [Mass/Vol] 384 mg/dL High 70-99 [facility] Serum or plasma C reactive p rotein measurement (mass/volume)Ordered By: Logan Gifford on 2024 CRP [Mass/Vol] 141.00 mg/L High 0.0-3.0 [facility] Serum or plasma alanine herrmann otransferase (ALT) measurementOrdered By: Logan Gifford on 2024 ALT [Catalytic activity/Vol] 11 U/L <47 [facility] Serum or plasma albumin everardo urement (mass/volume)Ordered By: Logan Gifford on 2024 Albumin [Mass/Vol] 3.5 g/dL 3.4-4.8 [facility] Serum or plasma albumin/glob ulin mass ratioOrdered By: Logan Gifford on 2024 Albumin/Globulin [Mass ratio] 0.9 {ratio} 0.9-2.4 [facility] Serum or plasma alkaline kaiser sphatase measurementOrdered By: Logan Gifford on 2024 ALP [Catalytic activity/Vol] 104 U/L 40-129 [facility] Serum or plasma calcium everardo urement (mass/volume)Ordered By: Logan Gifford on 2024 Calcium [Mass/Vol] 9.0 mg/dL 7.6-11.0 [facility] Serum or plasma urea nitroge n measurement (mass/volume)Ordered By: Logan Gifford on 2024 Urea nitrogen [Mass/Vol] 8 mg/dL 4-19 [facility] Sodium levelOrdered By: Logan Gifford on 2024 Sodium [Moles/Vol] 134 mmol/L 133-145 [facility] Total proteinOrdered By: Aurelio Gifford on 2024 Protein [Mass/Vol] 7.3 g/dL 5.9-8.4 [facility] Type AND Screenon 2024 ABO and Rh group Nom (Bld) Blood group A Rh(D) negative Normal [facility] Comment on above: Order Comment: S Performed By: #### L 503.6005, BTS, L100.0100, L101.9900, L500.4050, M200.1000, L300.3900, L501.6710 ####[facility] [address] [place], [place], [id number] White blood cell (WBC) count Ordered By: Logan Gifford on 2024 WBC (Bld) [#/Vol] 11.3 10*3/uL High 4.4-11.0 [facility] aPTT Coag (PPP) [Time]Ordere d By: Logan Gifford on 2024 aPTT Coag (Bld) [Time] 32.3 s 24.1-36.2 [facility] Prealbumin 19662eq Prealbumin [Mass/Vol] 15 mg/dL Normal 10-36 [facility] Comment on above: Result Comment: Perf ormed at: - [facility] [place] [id number] Director: Valente Grossman PhD, Phone: [phone] Performed By: #### L 3300.6400, L100.0100, L501.9985, L500.4050 ####[facility] [address] [place], [place], [id number] Absolute lymphocyte countOrd ered By: Ramon Garcia on 09-28-2024 Lymphocytes Auto (Unsp spec) [#/Vol] 2.49 10*3/uL 0.83-4.51 [facility] Absolute neutrophil countOrd ered By: Ramon Garcia on 09-28-2024 Neutrophils (Bld) [#/Vol] 6.6 10*3/uL 2.0-7.7 [facility] Anion gap in Serum or Plasma Ordered By: Ramon Garcia on 09-28-2024 Anion gap [Moles/Vol] 16 mmol/L High 5-15 [facility] Automated lymphocyte count a s percentage of total leukocytesOrdered By: Ramon Garcia on 09-28-2024 Lymphocytes/100 WBC Auto (Unsp spec) 24.7 % 19-41 [facility] BUN/creatinine ratioOrdered By: Ramon Garcia on 09-28-2024 Urea nitrogen/Creatinine [Mass ratio] 17.5 mg/mg 10-20 [facility] Basophil percentageOrdered B y: Ramon Garcia on 09-28-2024 Basophils/100 WBC (Bld) 0.5 % 0-1 [facility] Bilirubin, totalOrdered By: Ramon Garcia on 09-28-2024 Bilirubin [Mass/Vol] 0.45 mg/dL 0.00-1.[address] [facility] CBC W/Diff, Automatedon 09-18 Absolute Lymph 2.49 X10 3/uL Normal 0.83-4.51 [facility] Comment on above: Performed By: #### L 3300.6400, L100.0100, L501.9985, L500.4050 ####[facility] [address] [place], [address] Absolute Neut 6.6 X10 3/uL Normal 2.0-7.7 [facility] Comment on above: Performed By: #### L 3300.6400, L100.0100, L501.9985, L500.4050 ####[facility] [address] [place], [address] Basophils/100 WBC (Bld) 0.5 % Normal 0-1 [facility] Comment on above: Performed By: #### L 3300.6400, L100.0100, L501.9985, L500.4050 ####[facility] [address] [place], [address] Eosinophils/100 WBC (Bld) 2.8 % Normal 0-5 [facility] Comment on above: Performed By: #### L 3300.6400, L100.0100, L501.9985, L500.4050 ####[facility] [address] [place], [address] Erythrocyte distribution width (RBC) [Ratio] 13.2 % Normal 11.6-14.6 [facility] Comment on above: Performed By: #### L 3300.6400, L100.0100, L501.9985, L500.4050 ####[facility] [address] [place], [address] Hematocrit (Bld) [Volume fraction] 43.0 % Normal 40-54 [facility] Comment on above: Performed By: #### L 3300.6400, L100.0100, L501.9985, L500.4050 ####[facility] [address] [place], [address] Hemoglobin (Bld) [Mass/Vol] 14.2 g/dL Normal 13.0-16.5 [facility] Comment on above: Performed By: #### L 3300.6400, L100.0100, L501.9985, L500.4050 ####[facility] [address] [place], [address] IG% 0.400 Normal 0.0-0.9 [facility] Comment on above: Result Comment: IG% - Immature Granulocytes (promyelocytes, myelocytes andmetamyelocytes) > 1% indicates that a LEFT SHIFT is Present. Performed By: #### L 3300.6400, L100.0100, L501.9985, L500.4050 ####[facility] [address] [place], [address] Lymphocytes/100 WBC (Bld) 24.7 % Normal 19-41 [facility] Comment on above: Performed By: #### L 3300.6400, L100.0100, L501.9985, L500.4050 ####[facility] [address] [place], [address] MCH (RBC) [Entitic mass] 27.5 pg Normal 27.0-32.0 [facility] Comment on above: Performed By: #### L 3300.6400, L100.0100, L501.9985, L500.4050 ####[facility] [address] [place], [address] MCHC (RBC) [Mass/Vol] 33.0 g/dL Normal 32-36 [facility] Comment on above: Performed By: #### L 3300.6400, L100.0100, L501.9985, L500.4050 ####[facility] [address] [place], [address] MCV (RBC) [Entitic vol] 83.2 fL Normal 80-94 [facility] Comment on above: Performed By: #### L 3300.6400, L100.0100, L501.9985, L500.4050 ####[facility] [address] [place], [address] Monocytes/100 WBC (Bld) 6.0 % Normal 0-10 [facility] Comment on above: Performed By: #### L 3300.6400, L100.0100, L501.9985, L500.4050 ####[facility] [address] [place], [address] Neutrophils/100 WBC (Bld) 65.6 % Normal 47-70 [facility] Comment on above: Performed By: #### L 3300.6400, L100.0100, L501.9985, L500.4050 ####[facility] [address] [place], [address] Nucleated RBC (Bld) [#/Vol] 0 10*3/uL Normal 0-5 [facility] Comment on above: Performed By: #### L 3300.6400, L100.0100, L501.9985, L500.4050 ####[facility] [address] [place], [address] Platelet mean volume (Bld) [Entitic vol] 10.3 fL Normal 6.2-12.0 [facility] Comment on above: Performed By: #### L 3300.6400, L100.0100, L501.9985, L500.4050 ####[facility] [address] [place], [address] Platelets (Bld) [#/Vol] 252 10*3/uL Normal 150-450 [facility] Comment on above: Performed By: #### L 3300.6400, L100.0100, L501.9985, L500.4050 ####[facility] [address] [place], [address] RBC (Bld) [#/Vol] 5.17 10*6/uL Normal 4.6-6.2 [facility] Comment on above: Performed By: #### L 3300.6400, L100.0100, L501.9985, L500.4050 ####[facility] [address] [place], [address] RDW SD 40.0 fl Normal 35.1-43.9 [facility] Comment on above: Performed By: #### L 3300.6400, L100.0100, L501.9985, L500.4050 ####[facility] [address] [place], [address] WBC (Bld) [#/Vol] 10.1 10*3/uL Normal 4.4-11.0 [facility] Comment on above: Performed By: #### L 3300.6400, L100.0100, L501.9985, L500.4050 ####[facility] [address] [place], [address] Carbon dioxide, total [Moles /volume] in Central venous bloodOrdered By: Ramon Garcia on 09-28-2024 CO2 [Moles/Vol] 23.6 mmol/L 21.0-32.0 [facility] Chloride assayOrdered By: Juarez Garcia on 09-28-2024 Chloride [Moles/Vol] 97 mmol/L Low 98-[address] [facility] Comprehensive Metabolic Prof ilon 09-28-2024 Albumin [Mass/Vol] 3.6 g/dL Normal 3.4-4.8 [facility] Comment on above: Performed By: #### L 3300.6400, L100.0100, L501.9985, L500.4050 ####[facility] [address] [place], [address] Albumin/Globulin [Mass ratio] 0.9 {ratio} Normal 0.9-2.4 [facility] Comment on above: Performed By: #### L 3300.6400, L100.0100, L501.9985, L500.4050 ####[facility] [address] [place], [address] ALK PHOS 133 U/L High 40-129 [facility] Comment on above: Performed By: #### L 3300.6400, L100.0100, L501.9985, L500.4050 ####[facility] [address] [place], [address] ALT [Catalytic activity/Vol] 15 U/L Normal <=46 [facility] Comment on above: Performed By: #### L 3300.6400, L100.0100, L501.9985, L500.4050 ####[facility] [address] [place], [address] AST [Catalytic activity/Vol] 23 U/L Normal <=37 [facility] Comment on above: Performed By: #### L 3300.6400, L100.0100, L501.9985, L500.4050 ####[facility] [address] [place], [address] Bilirubin [Mass/Vol] 0.45 mg/dL Normal 0.00-1.[address] [facility] Comment on above: Performed By: #### L 3300.6400, L100.0100, L501.9985, L500.4050 ####[facility] [address] [place], [address] BUN/CRE 17.5 RATIO Normal 10-20 [facility] Comment on above: Performed By: #### L 3300.6400, L100.0100, L501.9985, L500.4050 ####[facility] [address] [place], [address] Calcium [Mass/Vol] 9.4 mg/dL Normal 7.6-11.0 [facility] Comment on above: Performed By: #### L 3300.6400, L100.0100, L501.9985, L500.4050 ####[facility] [address] [place], [address] Chloride [Moles/Vol] 97 mmol/L Low 98-[address] [facility] Comment on above: Performed By: #### L 3300.6400, L100.0100, L501.9985, L500.4050 ####[facility] [address] [place], [address] CO2 [Moles/Vol] 23.6 mmol/L Normal 21.0-32.0 [facility] Comment on above: Performed By: #### L 3300.6400, L100.0100, L501.9985, L500.4050 ####[facility] [address] [place], [address] Creatinine [Mass/Vol] 0.78 mg/dL Normal 0.70-1.20 [facility] Comment on above: Performed By: #### L 3300.6400, L100.0100, L501.9985, L500.4050 ####[facility] [address] [place], [address] GAP 16 High 5-15 [facility] Comment on above: Performed By: #### L 3300.6400, L100.0100, L501.9985, L500.4050 ####[facility] [address] [place], [address] GFR/1.73 sq M.predicted among non-blacks MDRD (S/P/Bld) [Vol rate/Area] 97 mL/min/{1.73_m2} Normal >60 [facility] Comment on above: Result Comment: mL/m in/1.73m2 CKD-EPI Creatinine Equation (2020) Performed By: #### L 3300.6400, L100.0100, L501.9985, L500.4050 ####[facility] [address] [place], [address] Globulin (S) [Mass/Vol] 4.0 g/dL Normal 2.2-4.2 [facility] Comment on above: Performed By: #### L 3300.6400, L100.0100, L501.9985, L500.4050 ####[facility] [address] [place], [address] Glucose [Mass/Vol] 361 mg/dL High 70-99 [facility] Comment on above: Performed By: #### L 3300.6400, L100.0100, L501.9985, L500.4050 ####[facility] [address] [place], [address] Potassium [Moles/Vol] 4.3 mmol/L Normal 3.3-5.1 [facility] Comment on above: Performed By: #### L 3300.6400, L100.0100, L501.9985, L500.4050 ####[facility] [address] [place], [address] Sodium [Moles/Vol] 136 mmol/L Normal 133-145 [facility] Comment on above: Performed By: #### L 3300.6400, L100.0100, L501.9985, L500.4050 ####[facility] [address] [place], [address] T PROT 7.6 g/dL Normal 5.9-8.4 [facility] Comment on above: Performed By: #### L 3300.6400, L100.0100, L501.9985, L500.4050 ####[facility] [address] [place], [address] Urea nitrogen [Mass/Vol] 14 mg/dL Normal 4-19 [facility] Comment on above: Performed By: #### L 3300.6400, L100.0100, L501.9985, L500.4050 ####[facility] [address] [place], [address] Eosinophil percentageOrdered By: Ramon Garcia on 09-28-2024 Eosinophils/100 WBC (Bld) 2.8 % 0-5 [facility] Erythrocyte distribution wid th (RBC) [Ratio]Ordered By: Ramon Gacria on 09-28-2024 Erythrocyte distribution width (RBC) [Entitic vol] 40.0 fL 35.1-43.9 [facility] Erythrocyte distribution wid th ratioOrdered By: Ramon Garcia on 09-28-2024 Erythrocyte distribution width (RBC) [Ratio] 13.2 % 11.6-14.6 [facility] Erythrocyte distribution wid th standard deviationOrdered By: Ramon Garcia on 09-28-2024 Erythrocyte distribution width (RBC) [Ratio] 40.0 fl 35.1-43.9 [facility] GFR/1.73 sq M.predicted marco g non-blacks MDRD (S/P/Bld) [Vol rate/Area]Ordered By: Ramon Garcia on 09-28-2024 Estimated GFR (MDRD) Non-Af Amer 97 >60 [facility] Comment on above: mL/min/1.73m2 CKD-EP I Creatinine Equation (2020) Glomerular filtration rate ( GFR) estimation/1.73 sq m using serum, plasma, or whole bOrdered By: Ramon Garcia on 09-28-2024 GFR/1.73 sq M.predicted among non-blacks MDRD (S/P/Bld) [Vol rate/Area] 97 mL/min/{1.73_m2} >60 [facility] Comment on above: mL/min/1.73m2 CKD-EP I Creatinine Equation (2020) Hematocrit Auto (Bld) [Volum e fraction]Ordered By: Ramon Garcia on 09-28-2024 Hematocrit (Bld) [Volume fraction] 43.0 % 40-54 [facility] Hemoglobin A1con 09-28-2024 HbA1c (Bld) [Mass fraction] 11.1 % High <=5.6 [facility] Comment on above: Result Comment: Norm al < 5.7 % Prediabetic 5.7 - 6.4 % Diabetic >or= 6.5 % Please note range changes. Performed By: #### L 3300.6400, L100.0100, L501.9985, L500.4050 ####[facility] [address] [place], [place], [id number] Hemoglobin A1c percentageOrd ered By: Ramon Garcia on 09-28-2024 HbA1c (Bld) [Mass fraction] 11.1 % High <5.7 [facility] Comment on above: Normal < 5.7 % Predi abetic 5.7 - 6.4 % Diabetic >or= 6.5 % Please note range changes. Hemoglobin measurementOrdere d By: Ramon Garcia on 09-28-2024 Hemoglobin (Bld) [Mass/Vol] 14.2 g/dL 13.0-16.5 [facility] Immature granulocytes/100 WB C Auto (Bld)Ordered By: Ramon Garcia on 09-28-2024 Immature granulocytes/100 WBC (Bld) 0.400 % 0.0-0.9 [facility] Comment on above: IG% - Immature Granu locytes (promyelocytes, myelocytes and metamyelocytes) > 1% indicates that a LEFT SHIFT is Present. Laboratory - Chemistry and C hemistry - challengeOrdered By: Ramon Garcia on 09-28-2024 AST [Catalytic activity/Vol] 23 U/L <38 [facility] Lymphocytes Auto (Unsp spec) [#/Vol]Ordered By: Ramon Garcia on 09-28-2024 Lymphocytes (Bld) [#/Vol] 2.49 10*3/uL 0.83-4.5 1 [facility] Lymphocytes/100 WBC Auto (Un sp spec)Ordered By: Ramon Garcia on 09-28-2024 Lymphocytes/100 WBC (Bld) 24.7 % 19-41 [facility] MCV (mean corpuscular volume ) determinationOrdered By: Ramon Garcia on 09-28-2024 MCV (RBC) [Entitic vol] 83.2 fL 80-94 [facility] Mean corpuscular hemoglobin (MCH) determinationOrdered By: Ramon Garcia on 09-28-2024 MCH (RBC) [Entitic mass] 27.5 pg 27.0-32.0 [facility] Mean corpuscular hemoglobin concentration (MCHC) determinationOrdered By: Ramon Garcia on 09-28-2024 MCHC (RBC) [Mass/Vol] 33.0 g/dL 32-36 [facility] Mean platelet volume determi nationOrdered By: Ramon Garcia on 09-28-2024 Platelet mean volume (Bld) [Entitic vol] 10.3 fL 6.2-12.0 [facility] Monocyte percentageOrdered B y: Ramon Garcia on 09-28-2024 Monocytes/100 WBC (Bld) 6.0 % 0-10 [facility] Neutrophil percentageOrdered By: Ramon Garcia on 09-28-2024 Neutrophils/100 WBC (Bld) 65.6 % 47-70 [facility] No Panel InformationOrdered By: Ramon Garcia on 04-11-2025 23 U/L <38 [facility] Nucleated red blood cell per centageOrdered By: Ramon Garcia on 09-28-2024 Nucleated RBC/100 WBC (Bld) [Ratio] 0 % 0-5 [facility] Platelet countOrdered By: Juarez Garcia on 09-28-2024 Platelets (Bld) [#/Vol] 252 10*3/uL 150-450 [facility] Potassium (Unsp spec) [Mass/ Vol]Ordered By: Ramon Garcia on 09-28-2024 Potassium [Moles/Vol] 4.3 mmol/L 3.3-5.1 [facility] Potassium measurement (mass/ volume)Ordered By: Ramon Garcia on 09-28-2024 Potassium (Unsp spec) [Mass/Vol] 4.3 mmol/L 3.3-5.1 [facility] RBC Auto (Bld) [#/Vol]Ordere d By: Ramon Garcia on 09-28-2024 RBC (Bld) [#/Vol] 5.17 10*6/uL 4.6-6.2 [facility] Serum creatinine measurement (mass/volume)Ordered By: Ramon Garcia on 09-28-2024 Creatinine [Mass/Vol] 0.78 mg/dL 0.70-1.20 [facility] Serum globulin measurementOr dered By: Ramon Garcia on 09-28-2024 Globulin (S) [Mass/Vol] 4.0 g/dL 2.2-4.2 [facility] Serum glucose measurement (m ass/volume)Ordered By: Ramon Garcia on 09-28-2024 Glucose [Mass/Vol] 361 mg/dL High 70-99 [facility] Serum or plasma alanine herrmann otransferase (ALT) measurementOrdered By: Ramon Garcia on 09-28-2024 ALT [Catalytic activity/Vol] 15 U/L <47 [facility] Serum or plasma albumin everardo urement (mass/volume)Ordered By: Ramon Garcia on 09-28-2024 Albumin [Mass/Vol] 3.6 g/dL 3.4-4.8 [facility] Serum or plasma albumin/glob ulin mass ratioOrdered By: Ramon Garcia on 09-28-2024 Albumin/Globulin [Mass ratio] 0.9 {ratio} 0.9-2.4 [facility] Serum or plasma alkaline kaiser sphatase measurementOrdered By: Ramon Garcia on 09-28-2024 ALP [Catalytic activity/Vol] 133 U/L High 40-129 [facility] Serum or plasma calcium everardo urement (mass/volume)Ordered By: Ramon Garcia on 09-28-2024 Calcium [Mass/Vol] 9.4 mg/dL 7.6-11.0 [facility] Serum or plasma urea nitroge n measurement (mass/volume)Ordered By: Ramon Garcia on 09-28-2024 Urea nitrogen [Mass/Vol] 14 mg/dL 4-19 [facility] Serum prealbumin measurement by immunoassayOrdered By: Ramon Garcia on 09-28-2024 Prealbumin [Mass/Vol] 15 mg/dL [facility] Comment on above: Performed at: [place] [id number] Director: Valente Grossman PhD, Phone: [phone] Serum prealbumin measurement by immunoassay 15 mg/dL [facility] Sodium levelOrdered By: Curtis Garcia on 09-28-2024 Sodium [Moles/Vol] 136 mmol/L 133-145 [facility] Total proteinOrdered By: Jemal Garcia on 09-28-2024 Protein [Mass/Vol] 7.6 g/dL 5.9-8.4 [facility] White blood cell (WBC) count Ordered By: Ramon Garcia on 09-28-2024 WBC (Bld) [#/Vol] 10.1 10*3/uL 4.4-11.0 [facility] History AND Physic arely 09-25-2024 Wound Ctr History & Physical Normal [facility] Wound Cultureon 08-27-2024 WC Normal [facility] Comment on above: Performed By: #### M 100.2000, M100.3000 ####[facility] [address] [place], [place], [id number] Gram Stainon 08-24-2024 GS Gram Stain 1+ Gram positive cocci Rare Gram negative rods No White Blood Cells No Epithelial cells Normal [facility] Comment on above: Performed By: #### M 100.2000, M100.3000 ####[facility] [address] [place], [place], [id number] Gram stainOrdered By: Ramon Garcia on 08-22-2024 Microscopic observation Gram stain Nom (Unsp spec) [facility] Routine wound cultureOrdered By: Ramon Garcia on 08-22-2024 Wound Culture Proteus mirabilis Abnormal [facility] Wound Culture Negative Abnormal [facility] PSA,Total - Annual Screenon 08-02-2024 PSA,TOT SCREEN 3.29 ng/mL Normal 0.00-4.00 [facility] Comment on above: Result Comment: This test was performed using the TPSA assay method for theDimension chemistry system. Values obtained with differentassay methods cannot be used interchangably.When changing PSA assays in the course of monitoring apatient, additional sequential testing should be carriedout to confirm baseline values. Performed By: #### L 501.9910 ####[facility] [address] [place], [place], [address] Screening prostate specific antigen (PSA) measurementOrdered By: Bernabe Reese on 08-02-2024 Prostate Specific Antigen Screen 3.29 ng/mL 0.00-4.00 [facility] Comment on above: This test was perfor med using the TPSA assay method for theDimension chemistry system. Values obtained with differentassay methods cannot be used interchangably.When changing PSA assays in the course of monitoring apatient, additional sequential testing should be carriedout to confirm baseline values. Absolute neutrophil countOrd ered By: Bernabe Reese on 06-19-2024 Neutrophils (Bld) [#/Vol] 5.2 10*3/uL 2.0-7.7 [facility] Albumin to globulin ratioOrd ered By: Bernabe Reese on 06-19-2024 Albumin/Globulin [Mass ratio] 0.8 {ratio} Low 0.9-2.4 [facility] Basophil percentageOrdered B y: Bernabe Reese on 06-19-2024 Basophils/100 WBC (Bld) 0.6 % 0-1 [facility] Bilirubin, totalOrdered By: Bernabe Reese on 06-19-2024 Bilirubin [Mass/Vol] 0.40 mg/dL 0.20-1.[address] [facility] Comment on above: For patients on eltr ombopag therapy, use of Dimension [place] TBIL is not recommended. Blood urea nitrogen (BUN)/cr eatinine ratioOrdered By: Bernabe Reese on 06-19-2024 Urea nitrogen/Creatinine [Mass ratio] 16.8 mg/mg 10-20 [facility] CBC W/Diff, Automatedon 12- Absolute Lymph 2.24 X10 3/uL Normal 0.83-4.51 [facility] Comment on above: Order Comment: Order Date: 06/19/24Order Info: [id number] - CBCD Performed By: #### L 100.0100, L501.5200, L500.4050, L502.0250, L501.9985, L500.4100 ####[facility] [address] [place], [place], [phone]) Absolute Neut 5.2 X10 3/uL Normal 2.0-7.7 [facility] Comment on above: Order Comment: Order Date: 06/19/24Order Info: [id number] - CBCD Performed By: #### L 100.0100, L501.5200, L500.4050, L502.0250, L501.9985, L500.4100 ####[facility] [address] [place], [address] Basophils/100 WBC (Bld) 0.6 % Normal 0-1 [facility] Comment on above: Order Comment: Order Date: 06/19/24Order Info: [id number] - CBCD Performed By: #### L 100.0100, L501.5200, L500.4050, L502.0250, L501.9985, L500.4100 ####[facility] [address] [place], [address] Eosinophils/100 WBC (Bld) 2.8 % Normal 0-5 [facility] Comment on above: Order Comment: Order Date: 06/19/24Order Info: [id number] - CBCD Performed By: #### L 100.0100, L501.5200, L500.4050, L502.0250, L501.9985, L500.4100 ####[facility] [address] [place], [address] Erythrocyte distribution width (RBC) [Ratio] 13.5 % Normal 11.6-14.6 [facility] Comment on above: Order Comment: Order Date: 06/19/24Order Info: [id number] - CBCD Performed By: #### L 100.0100, L501.5200, L500.4050, L502.0250, L501.9985, L500.4100 ####[facility] [address] [place], [address] Hematocrit (Bld) [Volume fraction] 44.1 % Normal 40-54 [facility] Comment on above: Order Comment: Order Date: 06/19/24Order Info: [id number] - CBCD Performed By: #### L 100.0100, L501.5200, L500.4050, L502.0250, L501.9985, L500.4100 ####[facility] [address] [place], [address] Hemoglobin (Bld) [Mass/Vol] 14.6 g/dL Normal 13.0-16.5 [facility] Comment on above: Order Comment: Order Date: 06/19/24Order Info: [id number] - CBCD Performed By: #### L 100.0100, L501.5200, L500.4050, L502.0250, L501.9985, L500.4100 ####[facility] [address] [place], [address] IG% 0.500 Normal 0.0-0.9 [facility] Comment on above: Order Comment: Order Date: 06/19/24Order Info: 183- - CBCD Result Comment: IG% - Immature Granulocytes (promyelocytes, myelocytes andmetamyelocytes) > 1% indicates that a LEFT SHIFT is Present. Performed By: #### L 100.0100, L501.5200, L500.4050, L502.0250, L501.9985, L500.4100 ####[facility] [address] [place], [address] Lymphocytes/100 WBC (Bld) 27.3 % Normal 19-41 [facility] Comment on above: Order Comment: Order Date: 06/19/24Order Info: 018- - CBCD Performed By: #### L 100.0100, L501.5200, L500.4050, L502.0250, L501.9985, L500.4100 ####[facility] [address] [place], [address] MCH (RBC) [Entitic mass] 27.7 pg Normal 27.0-32.0 [facility] Comment on above: Order Comment: Order Date: 06/19/24Order Info: 018- - CBCD Performed By: #### L 100.0100, L501.5200, L500.4050, L502.0250, L501.9985, L500.4100 ####[facility] [address] [place], [address] MCHC (RBC) [Mass/Vol] 33.1 g/dL Normal 32-36 [facility] Comment on above: Order Comment: Order Date: 06/19/24Order Info: 018- - CBCD Performed By: #### L 100.0100, L501.5200, L500.4050, L502.0250, L501.9985, L500.4100 ####[facility] [address] [place], [address] MCV (RBC) [Entitic vol] 83.7 fL Normal 80-94 [facility] Comment on above: Order Comment: Order Date: 06/19/24Order Info: 018-1 - CBCD Performed By: #### L 100.0100, L501.5200, L500.4050, L502.0250, L501.9985, L500.4100 ####[facility] [address] [place], [address] Monocytes/100 WBC (Bld) 5.7 % Normal 0-10 [facility] Comment on above: Order Comment: Order Date: 06/19/24Order Info: 018- - CBCD Performed By: #### L 100.0100, L501.5200, L500.4050, L502.0250, L501.9985, L500.4100 ####[facility] [address] [place], [address] Neutrophils/100 WBC (Bld) 63.1 % Normal 47-70 [facility] Comment on above: Order Comment: Order Date: 06/19/24Order Info: 018- - CBCD Performed By: #### L 100.0100, L501.5200, L500.4050, L502.0250, L501.9985, L500.4100 ####[facility] [address] [place], [address] Nucleated RBC (Bld) [#/Vol] 0 10*3/uL Normal 0-5 [facility] Comment on above: Order Comment: Order Date: 06/19/24Order Info: 018-1 - CBCD Performed By: #### L 100.0100, L501.5200, L500.4050, L502.0250, L501.9985, L500.4100 ####[facility] [address] [place], [address] Platelet mean volume (Bld) [Entitic vol] 10.6 fL Normal 6.2-12.0 [facility] Comment on above: Order Comment: Order Date: 06/19/24Order Info: 018- - CBCD Performed By: #### L 100.0100, L501.5200, L500.4050, L502.0250, L501.9985, L500.4100 ####[facility] [address] [place], [address] Platelets (Bld) [#/Vol] 206 10*3/uL Normal 150-450 [facility] Comment on above: Order Comment: Order Date: 06/19/24Order Info: 018- - CBCD Performed By: #### L 100.0100, L501.5200, L500.4050, L502.0250, L501.9985, L500.4100 ####[facility] [address] [place], [address] RBC (Bld) [#/Vol] 5.27 10*6/uL Normal 4.6-6.2 [facility] Comment on above: Order Comment: Order Date: 06/19/24Order Info: 018- - CBCD Performed By: #### L 100.0100, L501.5200, L500.4050, L502.0250, L501.9985, L500.4100 ####[facility] [address] [place], [address] RDW SD 41.1 fl Normal 35.1-43.9 [facility] Comment on above: Order Comment: Order Date: 06/19/24Order Info: 018- - CBCD Performed By: #### L 100.0100, L501.5200, L500.4050, L502.0250, L501.9985, L500.4100 ####[facility] [address] [place], [address] WBC (Bld) [#/Vol] 8.2 10*3/uL Normal 4.4-11.0 [facility] Comment on above: Order Comment: Order Date: 06/19/24Order Info: [id number] - CBCD Performed By: #### L 100.0100, L501.5200, L500.4050, L502.0250, L501.9985, L500.4100 ####[facility] [address] [place], [address] Carbon dioxide measurementOr dered By: Bernabe Reese on 06-19-2024 CO2 [Moles/Vol] 27.0 mmol/L 21.0-32.0 [facility] Chloride measurementOrdered By: Bernabe Reese on 06-19-2024 Chloride [Moles/Vol] 101 mmol/L 98-[address] [facility] Comprehensive Metabolic Prof ilon 06-19-2024 Albumin [Mass/Vol] 3.2 g/dL Normal 3.2-5.0 [facility] Comment on above: Order Comment: Order Date: 06/19/24Order Info: [id number] - CMPOrder Info: [id number] - LIPIDOrder Info: [id number] - MG Performed By: #### L 100.0100, L501.5200, L500.4050, L502.0250, L501.9985, L500.4100 ####[facility] [address] [place], [address] Albumin/Globulin [Mass ratio] 0.8 {ratio} Low 0.9-2.4 [facility] Comment on above: Order Comment: Order Date: 06/19/24Order Info: [id number] - CMPOrder Info: [id number] - LIPIDOrder Info: [id number] - MG Performed By: #### L 100.0100, L501.5200, L500.4050, L502.0250, L501.9985, L500.4100 ####[facility] [address] [place], [address] AL[address] U/L High 45-117 [facility] Comment on above: Order Comment: Order Date: 06/19/24Order Info: [id number] - CMPOrder Info: [id number] - LIPIDOrder Info: [id number] - MG Performed By: #### L 100.0100, L501.5200, L500.4050, L502.0250, L501.9985, L500.4100 ####[facility] [address] [place], [place], [address] ALT [Catalytic activity/Vol] 29 U/L Normal 16-61 [facility] Comment on above: Order Comment: Order Date: 06/19/24Order Info: [id number] - CMPOrder Info: [id number] - LIPIDOrder Info: [id number] - MG Performed By: #### L 100.0100, L501.5200, L500.4050, L502.0250, L501.9985, L500.4100 ####[facility] [address] [place], [place], [id number] AST [Catalytic activity/Vol] 32 U/L Normal 15-37 [facility] Comment on above: Order Comment: Order Date: 06/19/24Order Info: [id number] - CMPOrder Info: [id number] - LIPIDOrder Info: [id number] - MG Performed By: #### L 100.0100, L501.5200, L500.4050, L502.0250, L501.9985, L500.4100 ####[facility] [address] [place], [place], [address] Bilirubin [Mass/Vol] 0.40 mg/dL Normal 0.20-1.[address] [facility] Comment on above: Order Comment: Order Date: 06/19/24Order Info: [id number] - CMPOrder Info: [id number] - LIPIDOrder Info: [id number] - MG Result Comment: For patients on eltrombopag therapy, use of Dimension [place] TBIL is not recommended. Performed By: #### L 100.0100, L501.5200, L500.4050, L502.0250, L501.9985, L500.4100 ####[facility] [address] [place], [address] BUN/CRE 16.8 RATIO Normal 10-20 [facility] Comment on above: Order Comment: Order Date: 06/19/24Order Info: [id number] - CMPOrder Info: [id number] - LIPIDOrder Info: [id number] - MG Performed By: #### L 100.0100, L501.5200, L500.4050, L502.0250, L501.9985, L500.4100 ####[facility] [address] [place], [address] CA,Total 9.3 mg/dL Normal 8.5-10.1 [facility] Comment on above: Order Comment: Order Date: 06/19/24Order Info: [id number] - CMPOrder Info: - LIPIDOrder Info: [id number] - MG Performed By: #### L 100.0100, L501.5200, L500.4050, L502.0250, L501.9985, L500.4100 ####[facility] [address] [place], [address] Chloride [Moles/Vol] 101 mmol/L Normal 98-[address] [facility] Comment on above: Order Comment: Order Date: 06/19/24Order Info: 07- - CMPOrder Info: [id number] - LIPIDOrder Info: [id number] - MG Performed By: #### L 100.0100, L501.5200, L500.4050, L502.0250, L501.9985, L500.4100 ####[facility] [address] [place], [address] CO2 [Moles/Vol] 27.0 mmol/L Normal 21.0-32.0 [facility] Comment on above: Order Comment: Order Date: 06/19/24Order Info: [id number] - CMPOrder Info: [id number] - LIPIDOrder Info: [id number] - MG Performed By: #### L 100.0100, L501.5200, L500.4050, L502.0250, L501.9985, L500.4100 ####[facility] [address] [place], [place], [id number] Creatinine [Mass/Vol] 0.90 mg/dL Normal 0.70-1.30 [facility] Comment on above: Order Comment: Order Date: 06/19/24Order Info: [id number]- - CMPOrder Info: [id number] - LIPIDOrder Info: [id number] - MG Result Comment: The validity of the calculated GFR GFRAA in patients over70 years has not been determined. Clinical correlation isessential. Performed By: #### L 100.0100, L501.5200, L500.4050, L502.0250, L501.9985, L500.4100 ####[facility] [address] [place], [place], [id number] EST GFR - AA 108 mL/min Normal >60 [facility] Comment on above: Order Comment: Order Date: 06/19/24Order Info: [id number] - CMPOrder Info: [id number] - LIPIDOrder Info: [id number] - MG Result Comment: Afri can Sammarinese GFR Calc Performed By: #### L 100.0100, L501.5200, L500.4050, L502.0250, L501.9985, L500.4100 ####[facility] [address] [place], [place], [address] GAP 8 Normal 5-15 [facility] Comment on above: Order Comment: Order Date: 06/19/24Order Info: 07- - CMPOrder Info: [id number] - LIPIDOrder Info: [id number] - MG Performed By: #### L 100.0100, L501.5200, L500.4050, L502.0250, L501.9985, L500.4100 ####[facility] [address] [place], [address] GFR/1.73 sq M.predicted among non-blacks MDRD (S/P/Bld) [Vol rate/Area] 89 mL/min/{1.73_m2} Normal >60 [facility] Comment on above: Order Comment: Order Date: 06/19/24Order Info: [id number] - CMPOrder Info: [id number] - LIPIDOrder Info: [id number] - MG Result Comment: Non- GFR Calc Performed By: #### L 100.0100, L501.5200, L500.4050, L502.0250, L501.9985, L500.4100 ####[facility] [address] [place], [address] Globulin (S) [Mass/Vol] 4.2 g/dL Normal 2.2-4.2 [facility] Comment on above: Order Comment: Order Date: 06/19/24Order Info: [id number]- - CMPOrder Info: [id number] - LIPIDOrder Info: [id number] - MG Performed By: #### L 100.0100, L501.5200, L500.4050, L502.0250, L501.9985, L500.4100 ####[facility] [address] [place], [address] Glucose [Mass/Vol] 367 mg/dL High 74-106 [facility] Comment on above: Order Comment: Order Date: 06/19/24Order Info: [id number] - CMPOrder Info: [id number] - LIPIDOrder Info: [id number] - MG Result Comment: Gluc ose result greater than or equal to 200 mg/dLsuggests DIABETES MELLITUS per A.D.A. criteria. Performed By: #### L 100.0100, L501.5200, L500.4050, L502.0250, L501.9985, L500.4100 ####[facility] [address] [place], [address] Potassium [Moles/Vol] 4.0 mmol/L Normal 3.5-5.1 [facility] Comment on above: Order Comment: Order Date: 06/19/24Order Info: [id number] - CMPOrder Info: [id number] - LIPIDOrder Info: [id number] - MG Performed By: #### L 100.0100, L501.5200, L500.4050, L502.0250, L501.9985, L500.4100 ####[facility] [address] [place], [address] Sodium [Moles/Vol] 135 mmol/L Low 136-145 [facility] Comment on above: Order Comment: Order Date: 06/19/24Order Info: [id number]- - CMPOrder Info: [id number] - LIPIDOrder Info: [id number] - MG Performed By: #### L 100.0100, L501.5200, L500.4050, L502.0250, L501.9985, L500.4100 ####[facility] [address] [place], [address] T PROT 7.4 g/dL Normal 6.4-8.2 [facility] Comment on above: Order Comment: Order Date: 06/19/24Order Info: 07- - CMPOrder Info: [id number] - LIPIDOrder Info: [id number] - MG Performed By: #### L 100.0100, L501.5200, L500.4050, L502.0250, L501.9985, L500.4100 ####[facility] [address] [place], [address] Urea nitrogen [Mass/Vol] 15 mg/dL Normal 7-18 [facility] Comment on above: Order Comment: Order Date: 06/19/24Order Info: [id number] - CMPOrder Info: [id number] - LIPIDOrder Info: [id number] - MG Performed By: #### L 100.0100, L501.5200, L500.4050, L502.0250, L501.9985, L500.4100 ####[facility] [address] [place], [address] Eosinophil percentageOrdered By: Bernabe Reese on 06-19-2024 Eosinophils/100 WBC (Bld) 2.8 % 0-5 [facility] Erythrocyte distribution wid th ratioOrdered By: Bernabe Reese on 06-19-2024 Erythrocyte distribution width (RBC) [Ratio] 13.5 % 11.6-14.6 [facility] Erythrocyte distribution wid th standard deviationOrdered By: Bernabe Reese on 06-19-2024 Erythrocyte distribution width (RBC) [Entitic vol] 41.1 fL 35.1-43.9 [facility] Estimated glomerular filtrat ion rate (GFR) AmericanOrdered By: Bernabe Reese on 06-19-2024 Estimated GFR (MDRD) Amer 108 mL/min >60 [facility] Comment on above: GFR Calc Glomerular filtration rate ( GFR) estimationOrdered By: Bernabe Reese on 06-19-2024 Estimated GFR (MDRD) Non-Af Amer 89 mL/min >60 [facility] Comment on above: Non- GFR Calc Glucose measurementOrdered B y: Bernabe Reese on 06-19-2024 Glucose [Mass/Vol] 367 mg/dL High 74-106 [facility] Comment on above: Glucose result great er than or equal to 200 mg/dLsuggests DIABETES MELLITUS per A.D.A. criteria. Hematocrit Auto (Bld) [Volum e fraction]Ordered By: Bernabe Reese on 06-19-2024 Hematocrit (Bld) [Volume fraction] 44.1 % 40-54 [facility] Hemoglobin A1con 06-19-2024 HbA1c (Bld) [Mass fraction] 10.4 % High 3.8-5.6 [facility] Comment on above: Order Comment: Order Date: 06/19/24Order Info: [id number] - A1C Result Comment: Norm al < 5.7 % Prediabetic 5.7 - 6.4 % Diabetic >or= 6.5 % Please note range changes. Performed By: #### L 100.0100, L501.5200, L500.4050, L502.0250, L501.9985, L500.4100 ####[facility] [address] [place], [address] Hemoglobin A1c percentageOrd ered By: Bernabe Reese on 06-19-2024 HbA1c (Bld) [Mass fraction] 10.4 % High 3.8-5.6 [facility] Comment on above: Normal < 5.7 % Predi abetic 5.7 - 6.4 % Diabetic >or= 6.5 % Please note range changes. Hemoglobin measurementOrdere d By: Bernabe Reese on 06-19-2024 Hemoglobin (Bld) [Mass/Vol] 14.6 g/dL 13.0-16.5 [facility] High density lipoprotein (HD L) measurementOrdered By: Bernabe Reese on 06-19-2024 Cholesterol in HDL [Mass/Vol] 36 mg/dL Low >40 [facility] Comment on above: The drugs N-Acetylcy steine and Metamizole may falsely depress this assay. Reference Range HDL <40 mg/dL Low HDL Cholesterol HDL >or= 60 mg/dL High HDL Cholesterol Immature granulocytes/100 WB C Auto (Bld)Ordered By: Bernabe Reese on 06-19-2024 Immature granulocytes/100 WBC (Bld) 0.500 % 0.0-0.9 [facility] Comment on above: IG% - Immature Granu locytes (promyelocytes, myelocytes and metamyelocytes) > 1% indicates that a LEFT SHIFT is Present. Laboratory - Chemistry and C hemistry - challengeOrdered By: Bernabe Reese on 06-19-2024 AST [Catalytic activity/Vol] 32 U/L 15-37 [facility] Lipid Profileon 06-19-2024 Cholesterol [Mass/Vol] 179 mg/dL Normal 200 [facility] Comment on above: Order Comment: Order Date: 06/19/24Order Info: [id number] - CMPOrder Info: [id number] - LIPIDOrder Info: [id number] - MG Result Comment: <200 mg/dL Desirable 200-240 mg/dL Borderline >240 mg/dL High Risk Performed By: #### L 100.0100, L501.5200, L500.4050, L502.0250, L501.9985, L500.4100 ####[facility] [address] [place], [address] Cholesterol in HDL [Mass/Vol] 36 mg/dL Low [facility] Comment on above: Order Comment: Order Date: 06/19/24Order Info: [id number] - CMPOrder Info: [id number] - LIPIDOrder Info: [id number] - MG Result Comment: The drugs N-Acetylcysteine and Metamizole may falselydepress this assay. Reference Range HDL <40 mg/dL Low HDL Cholesterol HDL >or= 60 mg/dL High HDL Cholesterol Performed By: #### L 100.0100, L501.5200, L500.4050, L502.0250, L501.9985, L500.4100 ####[facility] [address] [place], [address] Cholesterol in LDL [Mass/Vol] 66 mg/dL Normal 0-130 [facility] Comment on above: Order Comment: Order Date: 06/19/24Order Info: [id number] - CMPOrder Info: [id number] - LIPIDOrder Info: [id number] - MG Performed By: #### L 100.0100, L501.5200, L500.4050, L502.0250, L501.9985, L500.4100 ####[facility] [address] [place], [address] Cholesterol in VLDL [Mass/Vol] 77 mg/dL High 5-40 [facility] Comment on above: Order Comment: Order Date: 06/19/24Order Info: [id number] - CMPOrder Info: [id number] - LIPIDOrder Info: [id number] - MG Performed By: #### L 100.0100, L501.5200, L500.4050, L502.0250, L501.9985, L500.4100 ####[facility] [address] [place], [address] Triglyceride [Mass/Vol] 387 mg/dL High [facility] Comment on above: Order Comment: Order Date: 06/19/24Order Info: [id number] - CMPOrder Info: [id number] - LIPIDOrder Info: [id number] - MG Result Comment: The drugs N-Acetylcysteine and Metamizole may falselydepress this assay.Serum Triglycerides Reference Interval Normal <150 mg/dL Borderline high 150 - 199 mg/dL High 200 - 499 mg/dL Very High > or = 500 mg/dL Performed By: #### L 100.0100, L501.5200, L500.4050, L502.0250, L501.9985, L500.4100 ####[facility] [address] [place], [place], [id number] Low density lipoprotein (LDL ) cholesterol measurementOrdered By: Bernabe Reese on 06-19-2024 Cholesterol in LDL [Mass/Vol] 66 mg/dL 0-130 [facility] Lymphocytes Auto (Unsp spec) [#/Vol]Ordered By: Bernabe Reese on 06-19-2024 Lymphocytes (Bld) [#/Vol] 2.24 10*3/uL 0.83-4.5 1 [facility] Lymphocytes/100 WBC Auto (Un sp spec)Ordered By: Bernabe Reese on 06-19-2024 Lymphocytes/100 WBC (Bld) 27.3 % 19-41 [facility] MCV (mean corpuscular volume ) determinationOrdered By: Bernabe Reese on 06-19-2024 MCV (RBC) [Entitic vol] 83.7 fL 80-94 [facility] Magnesiumon 06-19-2024 Magnesium [Mass/Vol] 1.7 mg/dL Normal 1.6-2.[address] [facility] Comment on above: Order Comment: Order Date: 06/19/24Order Info: [id number] - CMPOrder Info: [id number] - LIPIDOrder Info: [id number] - MG Performed By: #### L 100.0100, L501.5200, L500.4050, L502.0250, L501.9985, L500.4100 ####[facility] [address] [place], [place], [id number] Magnesium measurementOrdered By: Bernabe Reese on 06-19-2024 Magnesium [Mass/Vol] 1.7 mg/dL 1.6-2.[address] [facility] Mean corpuscular hemoglobin (MCH) determinationOrdered By: Bernabe Reese on 06-19-2024 MCH (RBC) [Entitic mass] 27.7 pg 27.0-32.0 [facility] Mean corpuscular hemoglobin concentration (MCHC) determinationOrdered By: Bernabe Reese on 06-19-2024 MCHC (RBC) [Mass/Vol] 33.1 g/dL 32-36 [facility] Mean platelet volume determi nationOrdered By: Bernabe Reese on 06-19-2024 Platelet mean volume (Bld) [Entitic vol] 10.6 fL 6.2-12.0 [facility] Microalb:Creat Ratio,Random URon 06-19-2024 Creatinine [Mass/Vol] 53.80 mg/dL Normal NO RAN GE EST. [facility] Comment on above: Order Comment: Order Date: 06/19/24Order Info: [id number] - MIACRE Performed By: #### L 100.0100, L501.5200, L500.4050, L502.0250, L501.9985, L500.4100 ####[facility] [address] [place], [place], [id number] MALB:CRE 747.2 mg/g CRE High <30 mg/g CRE [facility] Comment on above: Order Comment: Order Date: 06/19/24Order Info: [id number] - MIACRE Performed By: #### L 100.0100, L501.5200, L500.4050, L502.0250, L501.9985, L500.4100 ####[facility] [address] [place], [place], [id number] MICROALBUMIN,UR 402.0 mg/L Normal NO RANGE EST. [facility] Comment on above: Order Comment: Order Date: 12/31/24Order Info: [id number] - MIACRE Performed By: #### L 100.0100, L501.5200, L500.4050, L502.0250, L501.9985, L500.4100 ####[facility] [address] [place], [address] Monocyte percentageOrdered B y: Bernabe Reese on 06-19-2024 Monocytes/100 WBC (Bld) 5.7 % 0-10 [facility] Neutrophil percentageOrdered By: Bernabe Reese on 06-19-2024 Neutrophils/100 WBC (Bld) 63.1 % 47-70 [facility] Nucleated red blood cell per centageOrdered By: Bernabe Reese on 06-19-2024 Nucleated RBC/100 WBC (Bld) [Ratio] 0 % 0-5 [facility] Platelet countOrdered By: Alona Reese on 06-19-2024 Platelets (Bld) [#/Vol] 206 10*3/uL 150-450 [facility] Potassium measurementOrdered By: Bernabe Reese on 06-19-2024 Potassium [Moles/Vol] 4.0 mmol/L 3.5-5.1 [facility] RBC Auto (Bld) [#/Vol]Ordere d By: Bernabe Reese on 06-19-2024 RBC (Bld) [#/Vol] 5.27 10*6/uL 4.6-6.2 [facility] Random urine microalbumin me asurementOrdered By: Bernabe Reese on 06-19-2024 Urine Random Microalbumin 402.0 mg/L NO RANGE EST. [facility] Serum anion gap measurementO rdered By: Bernabe Reese on 06-19-2024 Anion gap [Moles/Vol] 8 mmol/L 5-15 [facility] Serum globulin measurementOr dered By: Bernabe Reese on 06-19-2024 Globulin (S) [Mass/Vol] 4.2 g/dL 2.2-4.2 [facility] Serum or plasma alanine herrmann otransferase (ALT) measurementOrdered By: Bernabe Reese on 06-19-2024 ALT [Catalytic activity/Vol] 29 U/L 16-61 [facility] Serum or plasma albumin everardo urement (mass/volume)Ordered By: Bernabe Reese on 06-19-2024 Albumin [Mass/Vol] 3.2 g/dL 3.2-5.0 [facility] Serum or plasma alkaline kaiser sphatase measurementOrdered By: Bernabe Reese on 06-19-2024 ALP [Catalytic activity/Vol] 136 U/L High 45-117 [facility] Serum or plasma calcium everardo urement (mass/volume)Ordered By: Bernabe Reese on 06-19-2024 Calcium [Mass/Vol] 9.3 mg/dL 8.5-10.1 [facility] Serum or plasma cholesterol measurement (mass/volume)Ordered By: Bernabe Reese on 06-19-2024 Cholesterol [Mass/Vol] 179 mg/dL <200 [facility] Comment on above: <200 mg/dL Desirable 200-240 mg/dL Borderline >240 mg/dL High Risk Serum or plasma creatinine m easurement (mass/volume)Ordered By: Bernabe Reese on 06-19-2024 Creatinine [Mass/Vol] 0.90 mg/dL 0.70-1.30 [facility] Comment on above: The validity of the calculated GFR & GFRAA in patients over 70 years has not been determined. Clinical correlation is essential. Serum or plasma urea nitroge n measurement (mass/volume)Ordered By: Bernabe Reese on 06-19-2024 Urea nitrogen [Mass/Vol] 15 mg/dL 7-18 [facility] Sodium levelOrdered By: Bernabe Reese on 06-19-2024 Sodium [Moles/Vol] 135 mmol/L Low 136-145 [facility] Total proteinOrdered By: Ruiz Reese on 06-19-2024 Protein [Mass/Vol] 7.4 g/dL 6.4-8.2 [facility] Triglycerides measurementOrd ered By: Bernabe Reese on 06-19-2024 Triglyceride [Mass/Vol] 387 mg/dL High <199 [facility] Comment on above: The drugs N-Acetylcy steine and Metamizole may falsely depress this assay.Serum Triglycerides Reference Interval Normal <150 mg/dL Borderline high 150 - 199 mg/dL High 200 - 499 mg/dL Very High > or = 500 mg/dL Urine albumin/creatinine rat io for detection of microalbuminuriaOrdered By: Bernabe Reese on 06-19-2024 Urine Microalbumin/Creatinine Ratio 747.2 mg/g CRE High <30 [facility] Urine creatinine measurement (mass/volume)Ordered By: Bernabe Reese on 06-19-2024 Creatinine (U) [Mass/Vol] 53.80 mg/dL NO RANGE EST. [facility] Very low density lipoprotein (VLDL) cholesterol measurementOrdered By: Bernabe Reese on 06-19-2024 VLDL Cholesterol 77 mg/dL High 5-40 [facility] White blood cell (WBC) count Ordered By: Bernabe Reese on 06-19-2024 WBC (Bld) [#/Vol] 8.2 10*3/uL 4.4-11.0 [facility] Thyroidon 02-13-2024 Thyroid Normal [facility] Absolute lymphocyte countOrd ered By: Bernabe Reese on 09-09-2023 Lymphocytes Auto (Unsp spec) [#/Vol] 2.04 10*3/uL 0.83-4.51 [facility] Automated lymphocyte count a s percentage of total leukocytesOrdered By: Bernabe Reese on 09-09-2023 Lymphocytes/100 WBC Auto (Unsp spec) 26.5 % 19-41 [facility] Basophil percentageOrdered B y: Bernabe Reese on 09-09-2023 Basophils/100 WBC (Bld) 0.9 % 0-1 [facility] Bilirubin [Mass/Vol] 0.60 mg/dL 0.20-1.[address] [facility] Comment on above: For patients on eltr ombopag therapy, use of Dimension [place] TBIL is not recommended. Chloride [Moles/Vol] 100 mmol/L 98-[address] [facility] Cholesterol [Mass/Vol] 158 mg/dL <200 [facility] Comment on above: <200 mg/dL Desirable 200-240 mg/dL Borderline >240 mg/dL High Risk Eosinophils/100 WBC (Bld) 3.6 % 0-5 [facility] Glucose [Mass/Vol] 303 mg/dL 74-106 [facility] Comment on above: Glucose result great er than or equal to 200 mg/dLsuggests DIABETES MELLITUS per A.D.A. criteria. Hemoglobin (Bld) [Mass/Vol] 13.4 g/dL 13.0-16.5 [facility] Monocytes/100 WBC (Bld) 7.4 % 0-10 [facility] Neutrophils (Bld) [#/Vol] 4.7 10*3/uL 2.0-7.7 [facility] Neutrophils/100 WBC (Bld) 61.1 % 47-70 [facility] Potassium [Moles/Vol] 4.3 mmol/L 3.5-5.1 [facility] Protein [Mass/Vol] 7.7 g/dL 6.4-8.2 [facility] Sodium [Moles/Vol] 134 mmol/L 136-145 [facility] Triglyceride [Mass/Vol] 179 mg/dL <199 [facility] Comment on above: The drugs N-Acetylcy steine and Metamizole may falsely depress this assay.Serum Triglycerides Reference Interval Normal <150 mg/dL Borderline high 150 - 199 mg/dL High 200 - 499 mg/dL Very High > or = 500 mg/dL WBC (Bld) [#/Vol] 7.7 10*3/uL 4.4-11.0 [facility] Determination of erythrocyte mean corpuscular volume (MCV)Ordered By: Bernabe Reese on 09-09-2023 MCV (RBC) [Entitic vol] 81.7 fL 80-94 [facility] Erythrocyte distribution wid th ratioOrdered By: Bernabe Reese on 09-09-2023 Erythrocyte distribution width (RBC) [Ratio] 14.6 % 11.6-14.6 [facility] Erythrocyte distribution wid th standard deviationOrdered By: Bernabe Reese on 09-09-2023 Erythrocyte distribution width (RBC) [Entitic vol] 42.5 fL 35.1-43.9 [facility] Hematocrit Auto (Bld) [Volum e fraction]Ordered By: Bernabe Reese on 09-09-2023 Hematocrit (Bld) [Volume fraction] 43.2 % 40-54 [facility] Immature granulocytes/100 WB C Auto (Bld)Ordered By: Bernabe Reese on 09-09-2023 Immature granulocytes/100 WBC (Bld) 0.500 % 0.0-0.9 [facility] Comment on above: IG% - Immature Granu locytes (promyelocytes, myelocytes and metamyelocytes) > 1% indicates that a LEFT SHIFT is Present. Laboratory - Chemistry and C hemistry - challengeOrdered By: Bernabe Reese on 09-09-2023 Albumin/Globulin [Mass ratio] 0.7 {ratio} 0.9-2.4 [facility] ALP [Catalytic activity/Vol] 91 U/L 45-117 [facility] ALT [Catalytic activity/Vol] 22 U/L 16-61 [facility] Cholesterol in HDL [Mass/Vol] 42 mg/dL >40 [facility] Comment on above: The drugs N-Acetylcy steine and Metamizole may falsely depress this assay. Reference Range HDL <40 mg/dL Low HDL Cholesterol HDL >or= 60 mg/dL High HDL Cholesterol Cholesterol in LDL [Mass/Vol] 80 mg/dL 0-130 [facility] CO2 [Moles/Vol] 26.0 mmol/L 21.0-32.0 [facility] Globulin (S) [Mass/Vol] 4.6 g/dL 2.2-4.2 [facility] Urea nitrogen/Creatinine [Mass ratio] 20.3 mg/mg 10-20 [facility] Laboratory - Hematology and Cell countsOrdered By: Bernabe Reese on 09-09-2023 MCH (RBC) [Entitic mass] 25.3 pg 27.0-32.0 [facility] MCHC (RBC) [Mass/Vol] 31.0 g/dL 32-36 [facility] Nucleated RBC/100 WBC (Bld) [Ratio] 0 % 0-5 [facility] Platelet mean volume (Bld) [Entitic vol] 10.8 fL 6.2-12.0 [facility] Platelets (Bld) [#/Vol] 204 10*3/uL 150-450 [facility] No Panel InformationOrdered By: Bernabe Reese on 09-09-2023 Estimated GFR (MDRD) Amer 110 mL/min >60 [facility] Comment on above: GFR Calc Estimated GFR (MDRD) Non-Af Amer 91 mL/min >60 [facility] Comment on above: Non- GFR Calc VLDL Cholesterol 36 mg/dL 5-40 [facility] RBC Auto (Bld) [#/Vol]Ordere d By: Bernabe Reese on 09-09-2023 RBC (Bld) [#/Vol] 5.29 10*6/uL 4.6-6.2 [facility] Serum or plasma calcium everardo urement (mass/volume)Ordered By: Bernabe Reese on 09-09-2023 Calcium [Mass/Vol] 9.2 mg/dL 8.5-10.1 [facility] Serum or plasma creatinine m easurement (mass/volume)Ordered By: Bernabe Reese on 09-09-2023 Creatinine [Mass/Vol] 0.88 mg/dL 0.70-1.30 [facility] Comment on above: The validity of the calculated GFR & GFRAA in patients over 70 years has not been determined. Clinical correlation is essential. Serum or plasma urea nitroge n measurement (mass/volume)Ordered By: Bernabe Reese on 09-09-2023 Urea nitrogen [Mass/Vol] 18 mg/dL 7-18 [facility] Thin prep Papanicolaou smear with manual screeningOrdered By: Bernabe Reese on 09-09-2023 Thin prep Papanicolaou smear with manual screening 3.1 g/dL 3.2-5.0 [facility] Thin prep Papanicolaou smear with manual screening 23 U/L 15-37 [facility] Thin prep Papanicolaou smear with manual screening 8 5-15 [facility] Whole blood hemoglobin A1c/t otal hemoglobin ratio (mass fraction)Ordered By: Bernabe Reese on 09-09-2023 HbA1c (Bld) [Mass fraction] 9.6 % 3.8-5.6 [facility] Comment on above: Normal < 5.7 % Predi abetic 5.7 - 6.4 % Diabetic >or= 6.5 % Please note range changes. Absolute lymphocyte countOrd ered By: Bernabe Reese on 07-11-2023 Lymphocytes Auto (Unsp spec) [#/Vol] 1.91 10*3/uL 0.83-4.51 [facility] Automated lymphocyte count a s percentage of total leukocytesOrdered By: Bernabe Reese on 07-11-2023 Lymphocytes/100 WBC Auto (Unsp spec) 24.9 % 19-41 [facility] Basophil percentageOrdered B y: Bernabe Reese on 07-11-2023 Basophil percentage 0 SEEN /hpf 0-[address] [facility] Basophils/100 WBC (Bld) 0.7 % 0-1 [facility] Bilirubin [Mass/Vol] 0.40 mg/dL 0.20-1.[address] [facility] Comment on above: For patients on eltr ombopag therapy, use of Dimension [place] TBIL is not recommended. Chloride [Moles/Vol] 105 mmol/L 98-[address] [facility] Cholesterol [Mass/Vol] 172 mg/dL <200 [facility] Comment on above: <200 mg/dL Desirable 200-240 mg/dL Borderline >240 mg/dL High Risk Eosinophils/100 WBC (Bld) 2.6 % 0-5 [facility] Glucose [Mass/Vol] 224 mg/dL 74-106 [facility] Comment on above: Glucose result great er than or equal to 200 mg/dLsuggests DIABETES MELLITUS per A.D.A. criteria. Hemoglobin (Bld) [Mass/Vol] 12.3 g/dL 13.0-16.5 [facility] Monocytes/100 WBC (Bld) 6.5 % 0-10 [facility] Neutrophils (Bld) [#/Vol] 5.0 10*3/uL 2.0-7.7 [facility] Neutrophils/100 WBC (Bld) 65.0 % 47-70 [facility] Potassium [Moles/Vol] 3.7 mmol/L 3.5-5.1 [facility] Protein [Mass/Vol] 7.4 g/dL 6.4-8.2 [facility] Sodium [Moles/Vol] 141 mmol/L 136-145 [facility] Triglyceride [Mass/Vol] 182 mg/dL <199 [facility] Comment on above: The drugs N-Acetylcy steine and Metamizole may falsely depress this assay.Serum Triglycerides Reference Interval Normal <150 mg/dL Borderline high 150 - 199 mg/dL High 200 - 499 mg/dL Very High > or = 500 mg/dL WBC (Bld) [#/Vol] 7.7 10*3/uL 4.4-11.0 [facility] Bilirubin Test strip Ql (U)O rdered By: Bernabe Reese on 07-11-2023 Bilirubin Ql (U) Negative Negative [facility] Determination of erythrocyte mean corpuscular volume (MCV)Ordered By: Bernabe Reese on 07-11-2023 MCV (RBC) [Entitic vol] 82.7 fL 80-94 [facility] Erythrocyte distribution wid th ratioOrdered By: Bernabe Reese on 07-11-2023 Erythrocyte distribution width (RBC) [Ratio] 14.8 % 11.6-14.6 [facility] Erythrocyte distribution wid th standard deviationOrdered By: Bernabe Reese on 07-11-2023 Erythrocyte distribution width (RBC) [Entitic vol] 44.7 fL 35.1-43.9 [facility] Hematocrit Auto (Bld) [Volum e fraction]Ordered By: Bernabe Reese on 07-11-2023 Hematocrit (Bld) [Volume fraction] 39.3 % 40-54 [facility] Immature granulocytes/100 WB C Auto (Bld)Ordered By: Bernabe Reese on 07-11-2023 Immature granulocytes/100 WBC (Bld) 0.300 % 0.0-0.9 [facility] Comment on above: IG% - Immature Granu locytes (promyelocytes, myelocytes and metamyelocytes) > 1% indicates that a LEFT SHIFT is Present. Ketones Test strip Ql (U)Ord ered By: Bernabe Reese on 07-11-2023 Ketones Ql (U) Negative Negative [facility] Laboratory - Chemistry and C hemistry - challengeOrdered By: Bernabe Reese on 07-11-2023 Albumin/Creatinine DL <= 1.0 mg/L (24H U) [Ratio] 234.6 mg/g CRE <30 [facility] Albumin/Globulin [Mass ratio] 0.7 {ratio} 0.9-2.4 [facility] ALP [Catalytic activity/Vol] 89 U/L 45-117 [facility] ALT [Catalytic activity/Vol] 23 U/L 16-61 [facility] Cholesterol in HDL (Body fld) [Mass/Vol] 46 mg/dL >40 [facility] Comment on above: The drugs N-Acetylcy steine and Metamizole may falsely depress this assay. Reference Range HDL <40 mg/dL Low HDL Cholesterol HDL >or= 60 mg/dL High HDL Cholesterol Cholesterol in LDL (Body fld) [Moles/Vol] 90 mg/dL 0-130 [facility] Cholesterol in VLDL Calc [Moles/Vol] 36 mg/dL 5-40 [facility] CO2 [Moles/Vol] 29.0 mmol/L 21.0-32.0 [facility] Globulin (S) [Mass/Vol] 4.4 g/dL 2.2-4.2 [facility] Magnesium [Mass/Vol] 1.8 mg/dL 1.6-2.[address] [facility] Urea nitrogen/Creatinine [Mass ratio] 14.8 mg/mg 10-20 [facility] - Hematology and Cell countsOrdered By: Bernabe Reese on 07-11-2023 MCH (RBC) [Entitic mass] 25.9 pg 27.0-32.0 [facility] MCHC (RBC) [Mass/Vol] 31.3 g/dL 32-36 [facility] Nucleated RBC/100 WBC (Bld) [Ratio] 0 % 0-5 [facility] Platelets (Bld) [#/Vol] 180 10*3/uL 150-450 [facility] Mucus LM Ql (Urine sed)Order ed By: Bernabe Reese on 07-11-2023 Mucus Ql (Urine sed) 0 SEEN /hpf [facility] Nitrite Test strip Ql (U)Ord ered By: Bernabe Reese on 07-11-2023 Nitrite Ql (U) Negative Negative [facility] No Panel InformationOrdered By: Bernabe Resee on 07-11-2023 Estimated GFR (MDRD) Amer 121 mL/min >60 [facility] Comment on above: GFR Calc Estimated GFR (MDRD) Non-Af Amer 100 mL/min >60 [facility] Comment on above: Non- GFR Calc Urine RBC 0 SEEN /hpf 0-5 [facility] Platelet mean volume Oscar-Ec ker (Bld) [Entitic vol]Ordered By: Bernabe Reese on 07-11-2023 Platelet mean volume (Bld) [Entitic vol] 10.6 fL 6.2-12.0 [facility] Protein Test strip Ql (U)Ord ered By: Bernabe Reese on 07-11-2023 Protein Ql (U) 30 mg/dl Negative [facility] RBC Auto (Bld) [#/Vol]Ordere d By: Bernabe Reese on 07-11-2023 RBC (Bld) [#/Vol] 4.75 10*6/uL 4.6-6.2 [facility] Serum or plasma calcium everardo urement (mass/volume)Ordered By: Bernabe Reese on 07-11-2023 Calcium [Mass/Vol] 9.3 mg/dL 8.5-10.1 [facility] Serum or plasma creatinine m easurement (mass/volume)Ordered By: Bernabe Reese on 07-11-2023 Creatinine [Mass/Vol] 0.81 mg/dL 0.70-1.30 [facility] Comment on above: The validity of the calculated GFR & GFRAA in patients over 70 years has not been determined. Clinical correlation is essential. Serum or plasma thyroid stim ulating hormone (TSH) measurement (units/volume)Ordered By: Bernabe Reese on 07-11-2023 TSH Qn 1.12 uIU/mL 0.358-3.74 [facility] Serum or plasma urea nitroge n measurement (mass/volume)Ordered By: Bernabe Reese on 07-11-2023 Urea nitrogen [Mass/Vol] 12 mg/dL 7-18 [facility] Squamous epithelial cells de tection in urine sediment by light microscopyOrdered By: Bernabe Reese on 07-11-2023 Epithelial cells.squamous LM Ql (Urine sed) 0-5 SEEN /hpf 0-5 [facility] Thin prep Papanicolaou smear with manual screeningOrdered By: Bernabe Reese on 07-11-2023 Thin prep Papanicolaou smear with manual screening 3.0 g/dL 3.2-5.0 [facility] Thin prep Papanicolaou smear with manual screening 22 U/L 15-37 [facility] Thin prep Papanicolaou smear with manual screening 7 5-15 [facility] Thin prep Papanicolaou smear with manual screening 305.0 mg/L NO RANGE EST. [facility] Urine blood detectionOrdered By: Bernabe Reese on 07-11-2023 RBC Ql (U) 10 /ul Negative [facility] Urine clarityOrdered By: Ruiz Reese on 07-11-2023 Clarity (U) Clear Clear [facility] Urine color determinationOrd ered By: Bernabe Reese on 07-11-2023 Color (U) Yellow Yellow [facility] Urine creatinine measurement (mass/volume)Ordered By: Bernabe Reese on 07-11-2023 Creatinine (U) [Mass/Vol] 130.00 mg/dL NO RANGE EST. [facility] Urine glucose detectionOrder ed By: Bernabe Reese on 07-11-2023 Glucose Ql (U) 250 mg/dl Normal [facility] Urine leukocyte esterase det ection by dipstickOrdered By: Bernabe Reese on 07-11-2023 Leukocyte esterase Test strip Ql (U) Negative Negative [facility] Urine pHOrdered By: Bernabe mac on 07-11-2023 pH (U) 5.0 [pH] 5.0 - 8.0 [facility] Urine sediment bacteria coun t by microscopy (number/high power field)Ordered By: Bernabe Reese on 07-11-2023 Bacteria LM.HPF (Urine sed) [#/Area] 0 /[HPF] None Seen [facility] Urine specific gravity measu rementOrdered By: Bernabe Reese on 07-11-2023 Specific gravity (U) [Rel density] 1.025 1.002-1.030 [facility] Urine urobilinogen measureme ntOrdered By: Bernabe Reese on 07-11-2023 Urobilinogen Ql (U) Normal mg/dl Normal [facility] Whole blood hemoglobin A1c/t otal hemoglobin ratio (mass fraction)Ordered By: Bernabe Reese on 07-11-2023 HbA1c (Bld) [Mass fraction] 9.8 % 3.8-5.6 [facility] Comment on above: Normal < 5.7 % Predi abetic 5.7 - 6.4 % Diabetic >or= 6.5 % Please note range changes. Absolute lymphocyte countOrd ered By: Julee Spain on 05-23-2023 Lymphocytes Auto (Unsp spec) [#/Vol] 2.17 10*3/uL 0.83-4.51 [facility] Basophil percentageOrdered B y: Julee Spain on 05-23-2023 Basophils/100 WBC (Bld) 0.5 % 0-1 [facility] Chloride [Moles/Vol] 102 mmol/L 98-[address] [facility] Eosinophils/100 WBC (Bld) 3.0 % 0-5 [facility] Glucose [Mass/Vol] 166 mg/dL 74-106 [facility] Comment on above: Fasting Glucose resu lt greater than or equal to 126 mg/dL suggests DIABETES MELLITUS per A.D.A. criteria. Neutrophils (Bld) [#/Vol] 6.8 10*3/uL 2.0-7.7 [facility] Neutrophils/100 WBC (Bld) 67.7 % 47-70 [facility] Potassium [Moles/Vol] 3.8 mmol/L 3.5-5.1 [facility] Sodium [Moles/Vol] 137 mmol/L 136-145 [facility] WBC (Bld) [#/Vol] 10.1 10*3/uL 4.4-11.0 [facility] Blood erythrocytes count (nu mber/volume)Ordered By: Julee Spain on 05-23-2023 RBC (Bld) [#/Vol] 4.82 10*6/uL 4.6-6.2 [facility] Blood hemoglobin measurement (mass/volume)Ordered By: Julee Spain on 05-23-2023 Hemoglobin (Bld) [Mass/Vol] 12.5 g/dL 13.0-16.5 [facility] Blood lymphocytes/100 leukoc ytesOrdered By: Julee Spain on 05-23-2023 Lymphocytes/100 WBC (Bld) 21.5 % 19-41 [facility] Blood monocytes/100 leukocyt esOrdered By: Julee Spain on 05-23-2023 Monocytes/100 WBC (Bld) 6.8 % 0-10 [facility] Blood platelet mean volumeOr dered By: Julee Spain on 05-23-2023 Platelet mean volume (Bld) [Entitic vol] 9.7 fL 6.2-12.0 [facility] Determination of erythrocyte mean corpuscular volume (MCV)Ordered By: Julee Spain on 05-23-2023 MCV (RBC) [Entitic vol] 84.0 fL 80-94 [facility] Glucose Glucometer (BldC) [M ass/Vol]Ordered By: Julee Spain on 05-23-2023 Glucose [Mass/Vol] 175 mg/dL 74-106 [facility] Comment on above: MANAGEMENT OF PATIEN T CARE PER NURSING PROTOCOL Hematocrit Auto (Bld) [Volum e fraction]Ordered By: Julee Spain on 05-23-2023 Hematocrit (Bld) [Volume fraction] 40.5 % 40-54 [facility] - Chemistry and C hemistry - challengeOrdered By: Julee Spain on 05-23-2023 CO2 [Moles/Vol] 32.0 mmol/L 21.0-32.0 [facility] Urea nitrogen/Creatinine [Mass ratio] 24.5 mg/mg 10-20 [facility] - Hematology and Cell countsOrdered By: Julee Spain on 05-23-2023 Erythrocyte distribution width (RBC) [Entitic vol] 42.7 fL 35.1-43.9 [facility] Erythrocyte distribution width (RBC) [Ratio] 14.1 % 11.6-14.6 [facility] Immature granulocytes/100 WBC (Bld) 0.500 % 0.0-0.9 [facility] Comment on above: IG% - Immature Granu locytes (promyelocytes, myelocytes and metamyelocytes) > 1% indicates that a LEFT SHIFT is Present. MCH (RBC) [Entitic mass] 25.9 pg 27.0-32.0 [facility] Nucleated RBC/100 WBC (Bld) [Ratio] 0 % 0-5 [facility] MCHC Auto (RBC) [Mass/Vol]Or dered By: Julee Spain on 05-23-2023 MCHC (RBC) [Mass/Vol] 30.9 g/dL 32-36 [facility] No Panel InformationOrdered By: Julee Spain on 05-23-2023 Estimated Creatinine Clearance Calc 83.41 ml/min [facility] Estimated GFR (MDRD) Amer 121 mL/min >60 [facility] Comment on above: GFR Calc Estimated GFR (MDRD) Non-Af Amer 100 mL/min >60 [facility] Comment on above: Non- GFR Calc Platelets bldOrdered By: Blanca Spain on 05-23-2023 Platelets (Bld) [#/Vol] 209 10*3/uL 150-450 [facility] Serum or plasma calcium everardo urement (mass/volume)Ordered By: Julee Spain on 05-23-2023 Calcium [Mass/Vol] 8.6 mg/dL 8.5-10.1 [facility] Serum or plasma creatinine m easurement (mass/volume)Ordered By: Julee Spain on 05-23-2023 Creatinine [Mass/Vol] 0.82 mg/dL 0.70-1.30 [facility] Comment on above: The validity of the calculated GFR & GFRAA in patients over 70 years has not been determined. Clinical correlation is essential. Serum or plasma urea nitroge n measurement (mass/volume)Ordered By: Julee Spain on 05-23-2023 Urea nitrogen [Mass/Vol] 20 mg/dL 7-18 [facility] Thin prep Papanicolaou smear with manual screeningOrdered By: Julee Spain on 05-23-2023 Thin prep Papanicolaou smear with manual screening 3 5-15 [facility] Assessment of wrist artery p atency prior to arterial punctureOrdered By: Julee Spain on 05-22-2023 Arterial patency Wrist artery --pre arterial puncture Positive [facility] Base excessOrdered By: Marilee Spain on 05-22-2023 Base excess Calc (BldV) [Moles/Vol] 3 mmol/L -2-2 [facility] Basophil percentageOrdered B y: Julee Spain on 05-22-2023 Basophil percentage 27.7 mmol/L 22-[address] [facility] Basophils/100 WBC (Bld) 93 % 95-99 [facility] Basophil percentageOrdered B y: Haily Santos on 05-22-2023 Lactate [Moles/Vol] 1.1 mmol/L 0.4-2.0 [facility] CO2 (BldA) [Partial pressure ]Ordered By: Julee Spain on 05-22-2023 CO2 (Bld) [Partial pressure] 46.4 mm[Hg] 35-45 [facility] No Panel InformationOrdered By: Julee Spain on 05-22-2023 Blood Gas Sample Site L Radial [facility] Blood Gas Specimen Type ART [facility] Blood Gas Total CO2 29 mmol/L [facility] Blood Gas Vent Mode Not entered [facility] Oxygen Delivery Device Room Air [facility] Oxygen (BldA) [Partial press ure]Ordered By: Julee Spain on 05-22-2023 Oxygen (Bld) [Partial pressure] 68 mmHG 75-100 [facility] Serum or plasma trough vanco mycin levelOrdered By: Haily Santos on 05-22-2023 Vancomycin trough [Mass/Vol] 20.0 ug/mL 5.0-15.0 [facility] Comment on above: VANCOMYCIN STANDARED DRUG THERAPY TROUGH LEVEL: 5.0 - 15.0 mg/L VANCOMYCIN HIGH INTENSITY THERAPY TROUGH LEVEL: 15.0 - 20.0 mg/L High Intensity therapy recommended for serious lifethreatening infections include:- Wkjybdzrcq-Aiuysbpricaq-Jetgfumii (Ventilator/Healtcare Associated)-Sepsis PLEASE CONTACT PHARMACY SERVICES (#[id number]) FOR INTERPRETATIONOF RESULTS. Whole blood hemoglobin A1c/t otal hemoglobin ratio (mass fraction)Ordered By: Haily Santos on 05-22-2023 HbA1c (Bld) [Mass fraction] 10.4 % 3.8-5.6 [facility] Comment on above: Normal < 5.7 % Predi abetic 5.7 - 6.4 % Diabetic >or= 6.5 % Please note range changes. pH measurementOrdered By: Opal Spain on 05-22-2023 pH (Unsp spec) 7.38 [pH] 7.35-7.45 [facility] Basophil percentageOrdered B y: Sourav Kim on 05-21-2023 Basophil percentage 0 SEEN /hpf 0-[address] [facility] Bilirubin Test strip Ql (U)O rdered By: Sourav Kim on 05-21-2023 Bilirubin Ql (U) Negative Negative [facility] Culture, urineOrdered By: Alexandria Luevano on 05-21-2023 Bacteria identified Cx Nom (U) Positive [facility] Bacteria identified Cx Nom (U) Positive [facility] Influenza virus A and B and SARS-CoV-2 (COVID-19) Ag panel - Upper respiratory specimOrdered By: Sourav Kim on 05-21-2023 SARS-CoV-2 (COVID-19) RNA BILL+probe Ql (Resp) [facility] Ketones Test strip Ql (U)Ord ered By: Sourav Kim on 05-21-2023 Ketones Ql (U) 5 mg/dl Negative [facility] Laboratory - Chemistry and C hemistry - challengeOrdered By: Sourav iKm on 05-21-2023 Natriuretic peptide B (Bld) [Mass/Vol] 29.8 pg/mL 0-100 [facility] - Microbiology an d Antimicrobial susceptibilityOrdered By: Sourav Kim on 05-21-2023 Bacteria identified Cx Nom (Bld) No growth in 5 days. [facility] Mucus LM Ql (Urine sed)Order ed By: Sourav Kim on 05-21-2023 Mucus Ql (Urine sed) 0 SEEN /hpf [facility] Nitrite Test strip Ql (U)Ord ered By: Sourav Kim on 05-21-2023 Nitrite Ql (U) Negative Negative [facility] No Panel InformationOrdered By: Sourav Kim on 05-21-2023 Troponin I High Sensitivity 10 pg/mL 3.0-78.0 [facility] Comment on above: Please Note: New [place] [facility] t Units and Gender Specific Reference Ranges. For more information see Policy Stat Procedure [place] High Sensitivity Troponin (TNIH) and attachments. Protein Test strip Ql (U)Ord ered By: Sourav Kim on 05-21-2023 Protein Ql (U) 30 mg/dl Negative [facility] Serum or plasma C reactive p rotein measurement (mass/volume)Ordered By: Haily Santos on 05-21-2023 CRP [Mass/Vol] 159.00 mg/L 0.0-3.0 [facility] Comment on above: C-Reactive Protein ( CRP) provides useful information for thediagnosis, therapy and monitoring of inflammatory processesand associated diseases. For the evaluation of Relative Riskfor Cardiovascular Disease, a High Sensitivity CRP (HSCRP)should be ordered. Squamous epithelial cells de tection in urine sediment by light microscopyOrdered By: Sourav Kim on 05-21-2023 Epithelial cells.squamous LM Ql (Urine sed) 0-5 SEEN /hpf 0-5 [facility] Upper respiratory specimen i nfluenza A virus, influenza B virus, and severe acute resOrdered By: Sourav Kim on 05-21-2023 Upper respiratory specimen influenza A virus, influenza B virus, and severe acute res [facility] Urine blood detectionOrdered By: Sourav Kim on 05-21-2023 RBC Ql (U) 10 /ul Negative [facility] RBC Ql (U) 0 SEEN /hpf 0-5 [facility] Urine clarityOrdered By: Jocelyn Kim on 05-21-2023 Clarity (U) Clear Clear [facility] Urine color determinationOrd ered By: Sourav Kim on 05-21-2023 Color (U) Yellow Yellow [facility] Urine glucose detectionOrder ed By: Sourav Kim on 05-21-2023 Glucose Ql (U) 1000 mg/dl Normal [facility] Urine leukocyte esterase det ection by dipstickOrdered By: Sourav Kim on 05-21-2023 Leukocyte esterase Test strip Ql (U) Negative Negative [facility] Urine pHOrdered By: Sourav yañez on 05-21-2023 pH (U) 5.0 [pH] 5.0 - 8.0 [facility] Urine sediment bacteria coun t by microscopy (number/high power field)Ordered By: Sourav Kim on 05-21-2023 Bacteria LM.HPF (Urine sed) [#/Area] RARE /hpf None Seen [facility] Urine sediment uric acid cry stal count by microscopy (number/high power field)Ordered By: Sourav Kim on 05-21-2023 Urate crystals LM.HPF (Urine sed) [#/Area] RARE /hpf [facility] Urine specific gravity measu rementOrdered By: Sourav Kim on 05-21-2023 Specific gravity (U) [Rel density] 1.020 1.002-1.030 [facility] Urobilinogen Auto test strip Ql (U)Ordered By: Sourav Kim on 05-21-2023 Urobilinogen Ql (U) Normal mg/dl Normal [facility] Absolute lymphocyte countOrd ered By: Bernabe Reese on 04-15-2023 Lymphocytes Auto (Unsp spec) [#/Vol] 2.21 10*3/uL 0.83-4.51 [facility] Basophil percentageOrdered B y: Bernabe Reese on 04-15-2023 Basophils/100 WBC (Bld) 0.7 % 0-1 [facility] Bilirubin [Mass/Vol] 0.30 mg/dL 0.20-1.[address] [facility] Comment on above: For patients on eltr ombopag therapy, use of Dimension [place] TBIL is not recommended. Chloride [Moles/Vol] 102 mmol/L 98-[address] [facility] Cholesterol [Mass/Vol] 127 mg/dL <200 [facility] Comment on above: <200 mg/dL Desirable 200-240 mg/dL Borderline >240 mg/dL High Risk Eosinophils/100 WBC (Bld) 2.1 % 0-5 [facility] Glucose [Mass/Vol] 322 mg/dL 74-106 [facility] Comment on above: Glucose result great er than or equal to 200 mg/dLsuggests DIABETES MELLITUS per A.D.A. criteria. Neutrophils (Bld) [#/Vol] 5.7 10*3/uL 2.0-7.7 [facility] Neutrophils/100 WBC (Bld) 65.4 % 47-70 [facility] Potassium [Moles/Vol] 4.6 mmol/L 3.5-5.1 [facility] Protein [Mass/Vol] 7.8 g/dL 6.4-8.2 [facility] Sodium [Moles/Vol] 137 mmol/L 136-145 [facility] Triglyceride [Mass/Vol] 283 mg/dL <199 [facility] Comment on above: The drugs N-Acetylcy steine and Metamizole may falsely depress this assay.Serum Triglycerides Reference Interval Normal <150 mg/dL Borderline high 150 - 199 mg/dL High 200 - 499 mg/dL Very High > or = 500 mg/dL WBC (Bld) [#/Vol] 8.7 10*3/uL 4.4-11.0 [facility] Blood erythrocytes count (nu mber/volume)Ordered By: Bernabe Reese on 04-15-2023 RBC (Bld) [#/Vol] 5.02 10*6/uL 4.6-6.2 [facility] Blood hemoglobin measurement (mass/volume)Ordered By: Bernabe Reese on 04-15-2023 Hemoglobin (Bld) [Mass/Vol] 13.0 g/dL 13.0-16.5 [facility] Blood lymphocytes/100 leukoc ytesOrdered By: Bernabe Reese on 04-15-2023 Lymphocytes/100 WBC (Bld) 25.3 % 19-41 [facility] Blood monocytes/100 leukocyt esOrdered By: Bernabe Reese on 04-15-2023 Monocytes/100 WBC (Bld) 6.2 % 0-10 [facility] Blood platelet mean volumeOr dered By: Bernabe Reese on 04-15-2023 Platelet mean volume (Bld) [Entitic vol] 10.3 fL 6.2-12.0 [facility] Determination of erythrocyte mean corpuscular volume (MCV)Ordered By: Bernabe Reese on 04-15-2023 MCV (RBC) [Entitic vol] 84.9 fL 80-94 [facility] Hematocrit Auto (Bld) [Volum e fraction]Ordered By: Bernabe Reese on 04-15-2023 Hematocrit (Bld) [Volume fraction] 42.6 % 40-54 [facility] Iron measurement (mass/mass) Ordered By: Bernabe Reese on 04-15-2023 Iron (Unsp spec) [Mass/Mass] 71 ug/dL 65-175 [facility] - Chemistry and C hemistry - challengeOrdered By: Bernabe Reese on 04-15-2023 ALP [Catalytic activity/Vol] 82 U/L 45-117 [facility] ALT [Catalytic activity/Vol] 25 U/L 16-61 [facility] CO2 [Moles/Vol] 31.0 mmol/L 21.0-32.0 [facility] Globulin (S) [Mass/Vol] 4.6 g/dL 2.2-4.2 [facility] Magnesium [Mass/Vol] 2.0 mg/dL 1.6-2.[address] [facility] Urea nitrogen/Creatinine [Mass ratio] 20.0 mg/mg 10-20 [facility] - Hematology and Cell countsOrdered By: Bernabe Reese on 04-15-2023 Erythrocyte distribution width (RBC) [Entitic vol] 43.5 fL 35.1-43.9 [facility] Erythrocyte distribution width (RBC) [Ratio] 14.2 % 11.6-14.6 [facility] Immature granulocytes/100 WBC (Bld) 0.300 % 0.0-0.9 [facility] Comment on above: IG% - Immature Granu locytes (promyelocytes, myelocytes and metamyelocytes) > 1% indicates that a LEFT SHIFT is Present. MCH (RBC) [Entitic mass] 25.9 pg 27.0-32.0 [facility] Nucleated RBC/100 WBC (Bld) [Ratio] 0 % 0-5 [facility] MCHC Auto (RBC) [Mass/Vol]Or dered By: Bernabe Reese on 04-15-2023 MCHC (RBC) [Mass/Vol] 30.5 g/dL 32-36 [facility] No Panel InformationOrdered By: Bernabe Reese on 04-15-2023 Estimated GFR (MDRD) Amer 90 mL/min >60 [facility] Comment on above: GFR Calc Estimated GFR (MDRD) Non-Af Amer 75 mL/min >60 [facility] Comment on above: Non- GFR Calc Prostate Specific Antigen Screen 2.52 ng/mL 0.00-4.00 [facility] Comment on above: This test was perfor med using the TPSA assay method for the[employer] chemistry system. Values obtained with differentassay methods cannot be used interchangably.When changing PSA assays in the course of monitoring apatient, additional sequential testing should be carriedout to confirm baseline values. Thyroid Stimulating Hormone (TSH) 1.07 uIU/mL 0.358-3.74 [facility] Total Iron Binding Capacity 368 ug/dL 250-450 [facility] Platelets bldOrdered By: Ruiz Reese on 04-15-2023 Platelets (Bld) [#/Vol] 218 10*3/uL 150-450 [facility] Serum or plasma albumin everardo urement (mass/volume)Ordered By: Bernabe Reese on 04-15-2023 Albumin [Mass/Vol] 3.2 g/dL 3.2-5.0 [facility] Serum or plasma albumin/glob ulin mass ratioOrdered By: Bernabe Reese on 04-15-2023 Albumin/Globulin [Mass ratio] 0.7 {ratio} 0.9-2.4 [facility] Serum or plasma calcium everardo urement (mass/volume)Ordered By: Bernabe Reese on 04-15-2023 Calcium [Mass/Vol] 9.8 mg/dL 8.5-10.1 [facility] Serum or plasma cholesterol in HDL measurement (mass/volume)Ordered By: Bernabe Reese on 04-15-2023 Cholesterol in HDL [Mass/Vol] 37 mg/dL >40 [facility] Comment on above: The drugs N-Acetylcy steine and Metamizole may falsely depress this assay. Reference Range HDL <40 mg/dL Low HDL Cholesterol HDL >or= 60 mg/dL High HDL Cholesterol Serum or plasma cholesterol in VLDL measurement (mass/volume)Ordered By: Bernabe Reese on 04-15-2023 Cholesterol in VLDL [Mass/Vol] 57 mg/dL 5-40 [facility] Serum or plasma creatinine m easurement (mass/volume)Ordered By: Bernabe Reese on 04-15-2023 Creatinine [Mass/Vol] 1.05 mg/dL 0.70-1.30 [facility] Comment on above: The validity of the calculated GFR & GFRAA in patients over 70 years has not been determined. Clinical correlation is essential. Serum or plasma ferritin hilda surement (mass/volume)Ordered By: Bernabe Reese on 04-15-2023 Ferritin [Mass/Vol] 33 ng/mL 26-388 [facility] Serum or plasma low density lipoprotein (LDL) cholesterol measurement (mass/volume)Ordered By: Bernabe Reese on 04-15-2023 Cholesterol in LDL [Mass/Vol] 33 mg/dL 0-130 [facility] Serum or plasma urea nitroge n measurement (mass/volume)Ordered By: Bernabe Reese on 04-15-2023 Urea nitrogen [Mass/Vol] 21 mg/dL 7-18 [facility] Thin prep Papanicolaou smear with manual screeningOrdered By: Bernabe Reese on 04-15-2023 Thin prep Papanicolaou smear with manual screening 20 U/L 15-37 [facility] Thin prep Papanicolaou smear with manual screening 4 5-15 [facility] Whole blood hemoglobin A1c/t otal hemoglobin ratio (mass fraction)Ordered By: Bernabe Reese on 04-15-2023 HbA1c (Bld) [Mass fraction] 10.2 % 3.8-5.6 [facility] Comment on above: Normal < 5.7 % Predi abetic 5.7 - 6.4 % Diabetic >or= 6.5 % Please note range changes. Absolute lymphocyte countOrd ered By: Dr. Zimmerman on 12-03-2022 Lymphocytes Auto (Unsp spec) [#/Vol] 1.91 10*3/uL 0.83-4.51 [facility] Basophil percentageOrdered B y: Dr. Zimmerman on 12-03-2022 Basophils/100 WBC (Bld) 0.6 % 0-1 [facility] Chloride [Moles/Vol] 104 mmol/L 98-[address] [facility] Eosinophils/100 WBC (Bld) 2.2 % 0-5 [facility] Glucose [Mass/Vol] 193 mg/dL 74-106 [facility] Comment on above: Fasting Glucose resu lt greater than or equal to 126 mg/dL suggests DIABETES MELLITUS per A.D.A. criteria. Neutrophils (Bld) [#/Vol] 6.0 10*3/uL 2.0-7.7 [facility] Neutrophils/100 WBC (Bld) 66.9 % 47-70 [facility] Potassium [Moles/Vol] 4.0 mmol/L 3.5-5.1 [facility] Sodium [Moles/Vol] 139 mmol/L 136-145 [facility] WBC (Bld) [#/Vol] 9.0 10*3/uL 4.4-11.0 [facility] Blood erythrocytes count (nu mber/volume)Ordered By: Dr. Zimmerman on 12-03-2022 RBC (Bld) [#/Vol] 4.72 10*6/uL 4.6-6.2 [facility] Blood hemoglobin measurement (mass/volume)Ordered By: Dr. Zimmerman on 12-03-2022 Hemoglobin (Bld) [Mass/Vol] 13.0 g/dL 13.0-16.5 [facility] Blood lymphocytes/100 leukoc ytesOrdered By: Dr. Zimmerman on 12-03-2022 Lymphocytes/100 WBC (Bld) 21.3 % 19-41 [facility] Blood monocytes/100 leukocyt esOrdered By: Dr. Zimmerman on 12-03-2022 Monocytes/100 WBC (Bld) 7.9 % 0-10 [facility] Blood platelet mean volumeOr dered By: Dr. Zimmerman on 12-03-2022 Platelet mean volume (Bld) [Entitic vol] 10.1 fL 6.2-12.0 [facility] COVID-19 virus antigen assay Ordered By: Dr. Zimmerman on 12-03-2022 SARS-CoV-2 (COVID-19) Ag IA.rapid Ql (Resp) [facility] Determination of erythrocyte mean corpuscular volume (MCV)Ordered By: Dr. Zimmerman on 12-03-2022 MCV (RBC) [Entitic vol] 84.7 fL 80-94 [facility] Glucose Glucometer (BldC) [M ass/Vol]Ordered By: Dr. Zimmerman on 12-03-2022 Glucose [Mass/Vol] 218 mg/dL 74-106 [facility] Comment on above: MANAGEMENT OF PATIEN T CARE PER NURSING PROTOCOL Hematocrit Auto (Bld) [Volum e fraction]Ordered By: Dr. Zimmerman on 12-03-2022 Hematocrit (Bld) [Volume fraction] 40.0 % 40-54 [facility] Laboratory - Chemistry and C hemistry - challengeOrdered By: Dr. Zimmerman on 12-03-2022 CO2 [Moles/Vol] 29.0 mmol/L 21.0-32.0 [facility] Urea nitrogen/Creatinine [Mass ratio] 27.8 mg/mg 10-20 [facility] Laboratory - Hematology and Cell countsOrdered By: Dr. Zimmerman on 12-03-2022 Erythrocyte distribution width (RBC) [Entitic vol] 43.1 fL 35.1-43.9 [facility] Erythrocyte distribution width (RBC) [Ratio] 13.9 % 11.6-14.6 [facility] Immature granulocytes/100 WBC (Bld) 1.100 % 0.0-0.9 [facility] Comment on above: IG% - Immature Granu locytes (promyelocytes, myelocytes and metamyelocytes) > 1% indicates that a LEFT SHIFT is Present. MCH (RBC) [Entitic mass] 27.5 pg 27.0-32.0 [facility] Nucleated RBC/100 WBC (Bld) [Ratio] 0 % 0-5 [facility] MCHC Auto (RBC) [Mass/Vol]Or dered By: Dr. Zimmerman on 12-03-2022 MCHC (RBC) [Mass/Vol] 32.5 g/dL 32-36 [facility] No Panel InformationOrdered By: Dr. Zimmerman on 12-03-2022 Estimated Creatinine Clearance Calc 68.40 ml/min [facility] Estimated GFR (MDRD) Amer 169 mL/min >60 [facility] Comment on above: GFR Calc Estimated GFR (MDRD) Non-Af Amer 139 mL/min >60 [facility] Comment on above: Non- GFR Calc Platelets bldOrdered By: Dr. Zimmerman on 12-03-2022 Platelets (Bld) [#/Vol] 191 10*3/uL 150-450 [facility] Serum or plasma calcium everardo urement (mass/volume)Ordered By: Dr. Zimmerman on 12-03-2022 Calcium [Mass/Vol] 8.9 mg/dL 8.5-10.1 [facility] Serum or plasma creatinine m easurement (mass/volume)Ordered By: Dr. Zimmerman on 12-03-2022 Creatinine [Mass/Vol] 0.61 mg/dL 0.70-1.30 [facility] Comment on above: The validity of the calculated GFR & GFRAA in patients over 70 years has not been determined. Clinical correlation is essential. Serum or plasma urea nitroge n measurement (mass/volume)Ordered By: Dr. Zimmerman on 12-03-2022 Urea nitrogen [Mass/Vol] 17 mg/dL 7-18 [facility] Thin prep Papanicolaou smear with manual screeningOrdered By: Dr. Zimmerman on 12-03-2022 Thin prep Papanicolaou smear with manual screening 6 5-15 [facility] Laboratory - Microbiology an d Antimicrobial susceptibilityOrdered By: Dr. Bailey on 12-02-2022 Bacteria identified Cx Nom (Bld) Streptococcus agalactiae (B) [facility] Culture, urineOrdered By: Dr Evette Bailey on 12-01-2022 Bacteria identified Cx Nom (U) Streptococcus agalactiae (B) [facility] Bacteria identified Cx Nom (U) Presumptive C albicans [facility] Basophil percentageOrdered B y: Dr. Bailey on 11-28-2022 Lactate [Moles/Vol] 1.7 mmol/L 0.4-2.0 [facility] Basophil percentage >100 SEEN /hpf 0-5 [facility] Bilirubin [Mass/Vol] 1.10 mg/dL 0.20-1.[address] [facility] Comment on above: For patients on eltr ombopag therapy, use of Dimension [place] TBIL is not recommended. Protein [Mass/Vol] 7.6 g/dL 6.4-8.2 [facility] Bilirubin Test strip Ql (U)O rdered By: Dr. Bailey on 11-28-2022 Bilirubin Ql (U) Negative Negative [facility] INR in Blood by Coagulation assayOrdered By: Dr. Bailey on 11-28-2022 INR Coag (Bld) [Relative time] 1.4 {INR} [facility] Ketones Test strip Ql (U)Ord ered By: Dr. Bailey on 11-28-2022 Ketones Ql (U) 150 mg/dl Negative [facility] Comment on above: CRITICAL VALUE *HCRI TICAL VALUE VERIFIED. CALLED TO ALONA CURTIS11/28/22 1201 Lupis Balbuena.RESULTS READ BACK BY SAME . Laboratory - Chemistry and C hemistry - challengeOrdered By: Dr. Bailey on 11-28-2022 ALP [Catalytic activity/Vol] 92 U/L 45-117 [facility] ALT [Catalytic activity/Vol] 26 U/L 16-61 [facility] CK [Catalytic activity/Vol] 544 U/L 39-308 [facility] Globulin (S) [Mass/Vol] 4.4 g/dL 2.2-4.2 [facility] Laboratory - CoagulationOrde red By: Dr. Bailey on 11-28-2022 aPTT Coag (Bld) [Time] 28.2 s 24.1-36.2 [facility] PT Coag (PPP) [Time] 17.1 s 11.7-14.[address] [facility] Mucus LM Ql (Urine sed)Order ed By: Dr. Bailey on 11-28-2022 Mucus Ql (Urine sed) 0 SEEN /hpf [facility] Nitrite Test strip Ql (U)Ord ered By: Dr. Bailey on 11-28-2022 Nitrite Ql (U) Negative Negative [facility] No Panel InformationOrdered By: Dr. Zimmerman on 11-28-2022 Troponin I High Sensitivity 65 pg/mL 3.0-78.0 [facility] Comment on above: Please Note: New [place] [facility] t Units and Gender Specific Reference Ranges. For more information see Policy Stat Procedure [place] High Sensitivity Troponin (TNIH) and attachments. No Panel InformationOrdered By: Dr. Bailey on 11-28-2022 Ethyl Alcohol Level < 3.0 mg/dL [facility] Comment on above: The serum:whole bloo d ethanol ratio is approximately 1.14and varies slightly with hematocrit. Medical Alcohol reference interval and critical value innon-tolerant individuals; 50 - 100 Impairment 100 Intoxication 100 - 250 Severe Poisoning 250 - 400 Deep/possible fatal coma Protein Test strip Ql (U)Ord ered By: Dr. Bailey on 11-28-2022 Protein Ql (U) 100 mg/dl Negative [facility] Serum or plasma albumin everardo urement (mass/volume)Ordered By: Dr. Bailey on 11-28-2022 Albumin [Mass/Vol] 3.2 g/dL 3.2-5.0 [facility] Serum or plasma albumin/glob ulin mass ratioOrdered By: Dr. Bailey on 11-28-2022 Albumin/Globulin [Mass ratio] 0.7 {ratio} 0.9-2.4 [facility] Squamous epithelial cells de tection in urine sediment by light microscopyOrdered By: Dr. Bailey on 11-28-2022 Epithelial cells.squamous LM Ql (Urine sed) 0-5 SEEN /hpf 0-5 [facility] Thin prep Papanicolaou smear with manual screeningOrdered By: Dr. Bailey on 11-28-2022 Thin prep Papanicolaou smear with manual screening 38 U/L 15-37 [facility] Urine blood detectionOrdered By: Dr. Bailey on 11-28-2022 RBC Ql (U) 250 /ul Negative [facility] RBC Ql (U) 10-25 SEEN /hpf 0-5 [facility] Urine clarityOrdered By: Dr. Bailey on 11-28-2022 Clarity (U) Cloudy Clear [facility] Urine color determinationOrd ered By: Dr. Bailey on 11-28-2022 Color (U) Yellow Yellow [facility] Urine glucose detectionOrder ed By: Dr. Bailey on 11-28-2022 Glucose Ql (U) 1000 mg/dl Normal [facility] Urine leukocyte esterase det ection by dipstickOrdered By: Dr. Bailey on 11-28-2022 Leukocyte esterase Test strip Ql (U) 500 /ul Negative [facility] Urine pHOrdered By: Dr. Becca alcantara on 11-28-2022 pH (U) 5.0 [pH] 5.0 - 8.0 [facility] Urine sediment bacteria coun t by microscopy (number/high power field)Ordered By: Dr. Bailey on 11-28-2022 Bacteria LM.HPF (Urine sed) [#/Area] 3 /[HPF] None Seen [facility] Urine specific gravity measu rementOrdered By: Dr. Bailey on 11-28-2022 Specific gravity (U) [Rel density] 1.020 1.002-1.030 [facility] Urobilinogen Auto test strip Ql (U)Ordered By: Dr. Bailey on 11-28-2022 Urobilinogen Ql (U) Normal mg/dl Normal [facility] Absolute lymphocyte countOrd ered By: Dr. Reese on 10-22-2022 Lymphocytes Auto (Unsp spec) [#/Vol] 2.52 10*3/uL 0.83-4.51 [facility] Basophil percentageOrdered B y: Dr. Reese on 10-22-2022 Basophils/100 WBC (Bld) 0.6 % 0-1 [facility] Bilirubin [Mass/Vol] 0.50 mg/dL 0.20-1.[address] [facility] Comment on above: For patients on eltr ombopag therapy, use of Dimension [place] TBIL is not recommended. Chloride [Moles/Vol] 98 mmol/L 98-[address] [facility] Cholesterol [Mass/Vol] 170 mg/dL <200 [facility] Comment on above: <200 mg/dL Desirable 200-240 mg/dL Borderline >240 mg/dL High Risk Eosinophils/100 WBC (Bld) 2.5 % 0-5 [facility] Glucose [Mass/Vol] 244 mg/dL 74-106 [facility] Comment on above: Glucose result great er than or equal to 200 mg/dLsuggests DIABETES MELLITUS per A.D.A. criteria. Neutrophils (Bld) [#/Vol] 6.7 10*3/uL 2.0-7.7 [facility] Neutrophils/100 WBC (Bld) 65.8 % 47-70 [facility] Potassium [Moles/Vol] 4.4 mmol/L 3.5-5.1 [facility] Protein [Mass/Vol] 7.2 g/dL 6.4-8.2 [facility] Sodium [Moles/Vol] 136 mmol/L 136-145 [facility] Triglyceride [Mass/Vol] 221 mg/dL <199 [facility] Comment on above: The drugs N-Acetylcy steine and Metamizole may falsely depress this assay.Serum Triglycerides Reference Interval Normal <150 mg/dL Borderline high 150 - 199 mg/dL High 200 - 499 mg/dL Very High > or = 500 mg/dL WBC (Bld) [#/Vol] 10.1 10*3/uL 4.4-11.0 [facility] Blood erythrocytes count (nu mber/volume)Ordered By: Dr. Reese on 10-22-2022 RBC (Bld) [#/Vol] 5.32 10*6/uL 4.6-6.2 [facility] Blood hemoglobin measurement (mass/volume)Ordered By: Dr. Reese on 10-22-2022 Hemoglobin (Bld) [Mass/Vol] 14.5 g/dL 13.0-16.5 [facility] Blood lymphocytes/100 leukoc ytesOrdered By: Dr. Reese on 10-22-2022 Lymphocytes/100 WBC (Bld) 24.9 % 19-41 [facility] Blood monocytes/100 leukocyt esOrdered By: Dr. Reese on 10-22-2022 Monocytes/100 WBC (Bld) 5.9 % 0-10 [facility] Blood platelet mean volumeOr dered By: Dr. Reese on 10-22-2022 Platelet mean volume (Bld) [Entitic vol] 11.0 fL 6.2-12.0 [facility] Determination of erythrocyte mean corpuscular volume (MCV)Ordered By: Dr. Reese on 10-22-2022 MCV (RBC) [Entitic vol] 85.2 fL 80-94 [facility] Hematocrit Auto (Bld) [Volum e fraction]Ordered By: Dr. Reese on 10-22-2022 Hematocrit (Bld) [Volume fraction] 45.3 % 40-54 [facility] Iron measurement (mass/mass) Ordered By: Dr. Reese on 10-22-2022 Iron (Unsp spec) [Mass/Mass] 65 ug/dL 65-175 [facility] Laboratory - Chemistry and C hemistry - challengeOrdered By: Dr. Reese on 10-22-2022 ALP [Catalytic activity/Vol] 88 U/L 45-117 [facility] ALT [Catalytic activity/Vol] 36 U/L 16-61 [facility] CO2 [Moles/Vol] 30.0 mmol/L 21.0-32.0 [facility] Globulin (S) [Mass/Vol] 4.1 g/dL 2.2-4.2 [facility] Magnesium [Mass/Vol] 1.7 mg/dL 1.6-2.[address] [facility] Urea nitrogen/Creatinine [Mass ratio] 19.2 mg/mg 10-20 [facility] Laboratory - Hematology and Cell countsOrdered By: Dr. Reese on 10-22-2022 Erythrocyte distribution width (RBC) [Entitic vol] 41.1 fL 35.1-43.9 [facility] Erythrocyte distribution width (RBC) [Ratio] 13.5 % 11.6-14.6 [facility] Immature granulocytes/100 WBC (Bld) 0.300 % 0.0-0.9 [facility] Comment on above: IG% - Immature Granu locytes (promyelocytes, myelocytes and metamyelocytes) > 1% indicates that a LEFT SHIFT is Present. MCH (RBC) [Entitic mass] 27.3 pg 27.0-32.0 [facility] Nucleated RBC/100 WBC (Bld) [Ratio] 0 % 0-5 [facility] MCHC Auto (RBC) [Mass/Vol]Or dered By: Dr. Reese on 10-22-2022 MCHC (RBC) [Mass/Vol] 32.0 g/dL 32-36 [facility] No Panel InformationOrdered By: Dr. Reese on 10-22-2022 Estimated GFR (MDRD) Amer 138 mL/min >60 [facility] Comment on above: GFR Calc Estimated GFR (MDRD) Non-Af Amer 114 mL/min >60 [facility] Comment on above: Non- GFR Calc Total Iron Binding Capacity 308 ug/dL 250-450 [facility] Urine Microalbumin/Creatinine Ratio 90.4 mg/g CRE <30 [facility] Platelets bldOrdered By: Dr. Reese on 10-22-2022 Platelets (Bld) [#/Vol] 193 10*3/uL 150-450 [facility] Serum or plasma albumin everardo urement (mass/volume)Ordered By: Dr. Reese on 10-22-2022 Albumin [Mass/Vol] 3.1 g/dL 3.2-5.0 [facility] Serum or plasma albumin/glob ulin mass ratioOrdered By: Dr. Reese on 10-22-2022 Albumin/Globulin [Mass ratio] 0.8 {ratio} 0.9-2.4 [facility] Serum or plasma calcium everardo urement (mass/volume)Ordered By: Dr. Reese on 10-22-2022 Calcium [Mass/Vol] 9.0 mg/dL 8.5-10.1 [facility] Serum or plasma cholesterol in HDL measurement (mass/volume)Ordered By: Dr. Reese on 10-22-2022 Cholesterol in HDL [Mass/Vol] 35 mg/dL >40 [facility] Comment on above: The drugs N-Acetylcy steine and Metamizole may falsely depress this assay. Reference Range HDL <40 mg/dL Low HDL Cholesterol HDL >or= 60 mg/dL High HDL Cholesterol Serum or plasma cholesterol in VLDL measurement (mass/volume)Ordered By: Dr. Reese on 10-22-2022 Cholesterol in VLDL [Mass/Vol] 44 mg/dL 5-40 [facility] Serum or plasma creatinine m easurement (mass/volume)Ordered By: Dr. Reese on 10-22-2022 Creatinine [Mass/Vol] 0.73 mg/dL 0.70-1.30 [facility] Comment on above: The validity of the calculated GFR & GFRAA in patients over 70 years has not been determined. Clinical correlation is essential. Serum or plasma ferritin hilda surement (mass/volume)Ordered By: Dr. Reese on 10-22-2022 Ferritin [Mass/Vol] 60 ng/mL 26-388 [facility] Serum or plasma low density lipoprotein (LDL) cholesterol measurement (mass/volume)Ordered By: Dr. Reese on 10-22-2022 Cholesterol in LDL [Mass/Vol] 91 mg/dL 0-130 [facility] Serum or plasma urea nitroge n measurement (mass/volume)Ordered By: Dr. Reese on 10-22-2022 Urea nitrogen [Mass/Vol] 14 mg/dL 7-18 [facility] Thin prep Papanicolaou smear with manual screeningOrdered By: Dr. Reese on 10-22-2022 Thin prep Papanicolaou smear with manual screening 30 U/L 15-37 [facility] Thin prep Papanicolaou smear with manual screening 8 5-15 [facility] Thin prep Papanicolaou smear with manual screening 91.3 mg/L NO RANGE EST. [facility] Urine creatinine measurement (mass/volume)Ordered By: Dr. Reese on 10-22-2022 Creatinine (U) [Mass/Vol] 101.00 mg/dL NO RANGE EST. [facility] Whole blood hemoglobin A1c/t otal hemoglobin ratio (mass fraction)Ordered By: Dr. Reese on 10-22-2022 HbA1c (Bld) [Mass fraction] 9.9 % 3.8-5.6 [facility] Comment on above: Normal < 5.7 % Predi abetic 5.7 - 6.4 % Diabetic >or= 6.5 % Please note range changes. Absolute lymphocyte countOrd ered By: Dr. Reese on 07-15-2022 Lymphocytes Auto (Unsp spec) [#/Vol] 2.42 10*3/uL 0.83-4.51 [facility] Basophil percentageOrdered B y: Dr. Reese on 07-15-2022 Basophils/100 WBC (Bld) 0.6 % 0-1 [facility] Bilirubin [Mass/Vol] 0.50 mg/dL 0.20-1.[address] [facility] Comment on above: For patients on eltr ombopag therapy, use of Dimension [place] TBIL is not recommended. Chloride [Moles/Vol] 100 mmol/L 98-[address] [facility] Cholesterol [Mass/Vol] 182 mg/dL <200 [facility] Comment on above: <200 mg/dL Desirable 200-240 mg/dL Borderline >240 mg/dL High Risk Eosinophils/100 WBC (Bld) 1.9 % 0-5 [facility] Glucose [Mass/Vol] 258 mg/dL 74-106 [facility] Comment on above: Glucose result great er than or equal to 200 mg/dLsuggests DIABETES MELLITUS per A.D.A. criteria. Neutrophils (Bld) [#/Vol] 5.3 10*3/uL 2.0-7.7 [facility] Neutrophils/100 WBC (Bld) 62.2 % 47-70 [facility] Potassium [Moles/Vol] 4.3 mmol/L 3.5-5.1 [facility] Protein [Mass/Vol] 6.9 g/dL 6.4-8.2 [facility] Sodium [Moles/Vol] 138 mmol/L 136-145 [facility] Triglyceride [Mass/Vol] 236 mg/dL <199 [facility] Comment on above: The drugs N-Acetylcy steine and Metamizole may falsely depress this assay.Serum Triglycerides Reference Interval Normal <150 mg/dL Borderline high 150 - 199 mg/dL High 200 - 499 mg/dL Very High > or = 500 mg/dL WBC (Bld) [#/Vol] 8.6 10*3/uL 4.4-11.0 [facility] Blood erythrocytes count (nu mber/volume)Ordered By: Dr. Reese on 07-15-2022 RBC (Bld) [#/Vol] 5.37 10*6/uL 4.6-6.2 [facility] Blood hemoglobin measurement (mass/volume)Ordered By: Dr. Reese on 07-15-2022 Hemoglobin (Bld) [Mass/Vol] 14.9 g/dL 13.0-16.5 [facility] Blood lymphocytes/100 leukoc ytesOrdered By: Dr. Reese on 07-15-2022 Lymphocytes/100 WBC (Bld) 28.2 % 19-41 [facility] Blood monocytes/100 leukocyt esOrdered By: Dr. Reese on 07-15-2022 Monocytes/100 WBC (Bld) 6.8 % 0-10 [facility] Blood platelet mean volumeOr dered By: Dr. Reese on 07-15-2022 Platelet mean volume (Bld) [Entitic vol] 10.7 fL 6.2-12.0 [facility] Determination of erythrocyte mean corpuscular volume (MCV)Ordered By: Dr. Reese on 07-15-2022 MCV (RBC) [Entitic vol] 83.8 fL 80-94 [facility] Hematocrit Auto (Bld) [Volum e fraction]Ordered By: Dr. Reese on 07-15-2022 Hematocrit (Bld) [Volume fraction] 45.0 % 40-54 [facility] Iron measurement (mass/mass) Ordered By: Dr. Reese on 07-15-2022 Iron (Unsp spec) [Mass/Mass] 60 ug/dL 65-175 [facility] Laboratory - Chemistry and C hemistry - challengeOrdered By: Dr. Reese on 07-15-2022 ALP [Catalytic activity/Vol] 100 U/L 45-117 [facility] ALT [Catalytic activity/Vol] 27 U/L 16-61 [facility] CO2 [Moles/Vol] 27.0 mmol/L 21.0-32.0 [facility] Globulin (S) [Mass/Vol] 3.8 g/dL 2.2-4.2 [facility] Magnesium [Mass/Vol] 1.7 mg/dL 1.6-2.[address] [facility] Urea nitrogen/Creatinine [Mass ratio] 17.3 mg/mg 10-20 [facility] Laboratory - Hematology and Cell countsOrdered By: Dr. Reese on 01-26-2023 Erythrocyte distribution width (RBC) [Entitic vol] 43.1 fL 35.1-43.9 [facility] Erythrocyte distribution width (RBC) [Ratio] 14.4 % 11.6-14.6 [facility] Immature granulocytes/100 WBC (Bld) 0.300 % 0.0-0.9 [facility] Comment on above: IG% - Immature Granu locytes (promyelocytes, myelocytes and metamyelocytes) > 1% indicates that a LEFT SHIFT is Present. MCH (RBC) [Entitic mass] 27.7 pg 27.0-32.0 [facility] Nucleated RBC/100 WBC (Bld) [Ratio] 0 % 0-5 [facility] MCHC Auto (RBC) [Mass/Vol]Or dered By: Dr. Reese on 07-15-2022 MCHC (RBC) [Mass/Vol] 33.1 g/dL 32-36 [facility] No Panel InformationOrdered By: Dr. Reese on 07-15-2022 Estimated GFR (MDRD) Amer 133 mL/min >60 [facility] Comment on above: GFR Calc Estimated GFR (MDRD) Non-Af Amer 110 mL/min >60 [facility] Comment on above: Non- GFR Calc Thyroid Stimulating Hormone (TSH) 1.81 uIU/mL 0.358-3.74 [facility] Total Iron Binding Capacity 349 ug/dL 250-450 [facility] Platelets bldOrdered By: Dr. Reese on 07-15-2022 Platelets (Bld) [#/Vol] 181 10*3/uL 150-450 [facility] Serum or plasma albumin everardo urement (mass/volume)Ordered By: Dr. Reese on 07-15-2022 Albumin [Mass/Vol] 3.1 g/dL 3.2-5.0 [facility] Serum or plasma albumin/glob ulin mass ratioOrdered By: Dr. Reese on 07-15-2022 Albumin/Globulin [Mass ratio] 0.8 {ratio} 0.9-2.4 [facility] Serum or plasma calcium everardo urement (mass/volume)Ordered By: Dr. Reese on 07-15-2022 Calcium [Mass/Vol] 8.7 mg/dL 8.5-10.1 [facility] Serum or plasma cholesterol in HDL measurement (mass/volume)Ordered By: Dr. Reese on 07-15-2022 Cholesterol in HDL [Mass/Vol] 42 mg/dL >40 [facility] Comment on above: The drugs N-Acetylcy steine and Metamizole may falsely depress this assay. Reference Range HDL <40 mg/dL Low HDL Cholesterol HDL >or= 60 mg/dL High HDL Cholesterol Serum or plasma cholesterol in VLDL measurement (mass/volume)Ordered By: Dr. Reese on 07-15-2022 Cholesterol in VLDL [Mass/Vol] 47 mg/dL 5-40 [facility] Serum or plasma creatinine m easurement (mass/volume)Ordered By: Dr. Reese on 07-15-2022 Creatinine [Mass/Vol] 0.75 mg/dL 0.70-1.30 [facility] Comment on above: The validity of the calculated GFR & GFRAA in patients over 70 years has not been determined. Clinical correlation is essential. Serum or plasma ferritin hilda surement (mass/volume)Ordered By: Dr. Reese on 07-15-2022 Ferritin [Mass/Vol] 40 ng/mL 26-388 [facility] Serum or plasma low density lipoprotein (LDL) cholesterol measurement (mass/volume)Ordered By: Dr. Reese on 07-15-2022 Cholesterol in LDL [Mass/Vol] 93 mg/dL 0-130 [facility] Serum or plasma urea nitroge n measurement (mass/volume)Ordered By: Dr. Reese on 07-15-2022 Urea nitrogen [Mass/Vol] 13 mg/dL 7-18 [facility] Thin prep Papanicolaou smear with manual screeningOrdered By: Dr. Reese on 07-15-2022 Thin prep Papanicolaou smear with manual screening 18 U/L 15-37 [facility] Thin prep Papanicolaou smear with manual screening 11 5-15 [facility] Whole blood hemoglobin A1c/t otal hemoglobin ratio (mass fraction)Ordered By: Dr. Reese on 07-15-2022 HbA1c (Bld) [Mass fraction] 10.2 % 3.8-5.6 [facility] Comment on above: Normal < 5.7 % Predi abetic 5.7 - 6.4 % Diabetic >or= 6.5 % Please note range changes. Absolute lymphocyte counton 01-19-2022 Lymphocytes Auto (Unsp spec) [#/Vol] 2.55 10*3/uL 0.83-4.51 [facility] Work Phone: Basophil percentageon 2021 Basophils/100 WBC (Bld) 0.4 % 0-1 [facility] Work Phone: Bilirubin [Mass/Vol] 0.50 mg/dL 0.20-1.[address] [facility] Work Phone: Comment on above: For patients on eltr ombopag therapy, use of Dimension [place] TBIL is not recommended. Chloride [Moles/Vol] 101 mmol/L 98-[address] [facility] Work Phone: Cholesterol [Mass/Vol] 200 mg/dL <200 [facility] Work Phone: Comment on above: <200 mg/dL Desirable 200-240 mg/dL Borderline >240 mg/dL High Risk Eosinophils/100 WBC (Bld) 1.9 % 0-5 [facility] Work Phone: Glucose [Mass/Vol] 217 mg/dL 74-106 [facility] Work Phone: Comment on above: Glucose result great er than or equal to 200 mg/dLsuggests DIABETES MELLITUS per A.D.A. criteria. Neutrophils (Bld) [#/Vol] 5.2 10*3/uL 2.0-7.7 [facility] Work Phone: Neutrophils/100 WBC (Bld) 61.2 % 47-70 [facility] Work Phone: Potassium [Moles/Vol] 4.2 mmol/L 3.5-5.1 [facility] Work Phone: Protein [Mass/Vol] 7.6 g/dL 6.4-8.2 [facility] Work Phone: Sodium [Moles/Vol] 137 mmol/L 136-145 [facility] Work Phone: Triglyceride [Mass/Vol] 386 mg/dL <199 [facility] Work Phone: Comment on above: The drugs N-Acetylcy steine and Metamizole may falsely depress this assay.Serum Triglycerides Reference Interval Normal <150 mg/dL Borderline high 150 - 199 mg/dL High 200 - 499 mg/dL Very High > or = 500 mg/dL WBC (Bld) [#/Vol] 8.5 10*3/uL 4.4-11.0 [facility] Work Phone: Blood erythrocytes count (nu mber/volume)on 01-19-2022 RBC (Bld) [#/Vol] 5.14 10*6/uL 4.6-6.2 [facility] Work Phone: Blood hemoglobin measurement (mass/volume)on 01-19-2022 Hemoglobin (Bld) [Mass/Vol] 13.9 g/dL 13.0-16.5 [facility] Work Phone: Blood lymphocytes/100 leukoc yteson 01-19-2022 Lymphocytes/100 WBC (Bld) 30.0 % 19-41 [facility] Work Phone: Blood monocytes/100 leukocyt eson 01-19-2022 Monocytes/100 WBC (Bld) 6.1 % 0-10 [facility] Work Phone: Blood platelet mean volumeon 01-19-2022 Platelet mean volume (Bld) [Entitic vol] 10.8 fL 6.2-12.0 [facility] Work Phone: Determination of erythrocyte mean corpuscular volume (MCV)on 01-19-2022 MCV (RBC) [Entitic vol] 85.6 fL 80-94 [facility] Work Phone: Hematocrit Auto (Bld) [Volum e fraction]on 01-19-2022 Hematocrit (Bld) [Volume fraction] 44.0 % 40-54 [facility] Work Phone: Iron measurement (mass/mass) on 01-19-2022 Iron (Unsp spec) [Mass/Mass] 62 ug/dL 65-175 [facility] Work Phone: Laboratory - Chemistry and C hemistry - challengeon 01-19-2022 ALP [Catalytic activity/Vol] 83 U/L 45-117 [facility] Work Phone: [phone] ALT [Catalytic activity/Vol] 48 U/L 16-61 [facility] Work Phone: CO2 [Moles/Vol] 27.0 mmol/L 21.0-32.0 [facility] Work Phone: Globulin (S) [Mass/Vol] 4.3 g/dL 2.2-4.2 [facility] Work Phone: Magnesium [Mass/Vol] 1.8 mg/dL 1.6-2.[address] [facility] Work Phone: Urea nitrogen/Creatinine [Mass ratio] 18.4 mg/mg 10-20 [facility] Work Phone: Laboratory - Hematology and Cell countson 01-19-2022 Erythrocyte distribution width (RBC) [Entitic vol] 43.0 fL 35.1-43.9 [facility] Work Phone: Erythrocyte distribution width (RBC) [Ratio] 14.0 % 11.6-14.6 [facility] Work Phone: Immature granulocytes/100 WBC (Bld) 0.400 % 0.0-0.9 [facility] Work Phone: Comment on above: IG% - Immature Granu locytes (promyelocytes, myelocytes and metamyelocytes) > 1% indicates that a LEFT SHIFT is Present. MCH (RBC) [Entitic mass] 27.0 pg 27.0-32.0 [facility] Work Phone: [phone] Nucleated RBC/100 WBC (Bld) [Ratio] 0 % 0-5 [facility] Work Phone: MCHC Auto (RBC) [Mass/Vol]on 01-19-2022 MCHC (RBC) [Mass/Vol] 31.6 g/dL 32-36 [facility] Work Phone: No Panel Informationon 01-19 Estimated GFR (MDRD) Amer 121 mL/min >60 [facility] Work Phone: Comment on above: GFR Calc Estimated GFR (MDRD) Non-Af Amer 100 mL/min >60 [facility] Work Phone: Comment on above: Non- GFR Calc Thyroid Stimulating Hormone (TSH) 1.09 uIU/mL 0.358-3.74 [facility] Work Phone: Total Iron Binding Capacity 351 ug/dL 250-450 [facility] Work Phone: Urine Microalbumin/Creatinine Ratio 281.7 mg/g CRE <30 [facility] Work Phone: Platelets bldon 01-19-2022 Platelets (Bld) [#/Vol] 207 10*3/uL 150-450 [facility] Work Phone: Serum or plasma albumin everardo urement (mass/volume)on 01-19-2022 Albumin [Mass/Vol] 3.3 g/dL 3.2-5.0 [facility] Work Phone: Serum or plasma albumin/glob ulin mass ratioon 01-19-2022 Albumin/Globulin [Mass ratio] 0.8 {ratio} 0.9-2.4 [facility] Work Phone: Serum or plasma calcium everardo urement (mass/volume)on 01-19-2022 Calcium [Mass/Vol] 9.3 mg/dL 8.5-10.1 [facility] Work Phone: Serum or plasma cholesterol in HDL measurement (mass/volume)on 01-19-2022 Cholesterol in HDL [Mass/Vol] 36 mg/dL >40 [facility] Work Phone: Comment on above: The drugs N-Acetylcy steine and Metamizole may falsely depress this assay. Reference Range HDL <40 mg/dL Low HDL Cholesterol HDL >or= 60 mg/dL High HDL Cholesterol Serum or plasma cholesterol in VLDL measurement (mass/volume)on 01-19-2022 Cholesterol in VLDL [Mass/Vol] 77 mg/dL 5-40 [facility] Work Phone: Serum or plasma creatinine m easurement (mass/volume)on 01-19-2022 Creatinine [Mass/Vol] 0.82 mg/dL 0.70-1.30 [facility] Work Phone: Comment on above: The validity of the calculated GFR & GFRAA in patients over 70 years has not been determined. Clinical correlation is essential. Serum or plasma ferritin hilda surement (mass/volume)on 01-19-2022 Ferritin [Mass/Vol] 41 ng/mL 26-388 [facility] Work Phone: Serum or plasma low density lipoprotein (LDL) cholesterol measurement (mass/volume)on 01-19-2022 Cholesterol in LDL [Mass/Vol] 87 mg/dL 0-130 [facility] Work Phone: Serum or plasma urea nitroge n measurement (mass/volume)on 01-19-2022 Urea nitrogen [Mass/Vol] 15 mg/dL 7-18 [facility] Work Phone: Thin prep Papanicolaou smear with manual screeningon 01-19-2022 Thin prep Papanicolaou smear with manual screening 54 U/L 15-37 [facility] Work Phone: Thin prep Papanicolaou smear with manual screening 9 5-15 [facility] Work Phone: Thin prep Papanicolaou smear with manual screening 293.0 mg/L NO RANGE EST. [facility] Work Phone: Urine creatinine measurement (mass/volume)on 01-19-2022 Creatinine (U) [Mass/Vol] 104.00 mg/dL NO RANGE EST. [facility] Work Phone: Whole blood hemoglobin A1c/t otal hemoglobin ratio (mass fraction)on 01-19-2022 HbA1c (Bld) [Mass fraction] 10.3 % 3.8-5.6 [facility] Work Phone: Comment on above: Normal < 5.7 % Predi abetic 5.7 - 6.4 % Diabetic >or= 6.5 % Please note range changes. Absolute lymphocyte counton 09-11-2021 Lymphocytes Auto (Unsp spec) [#/Vol] 2.41 10*3/uL 0.83-4.51 [facility] Work Phone: Basophil percentageon 2021 Basophils/100 WBC (Bld) 0.5 % 0-1 [facility] Work Phone: Bilirubin [Mass/Vol] 0.40 mg/dL 0.20-1.[address] [facility] Work Phone: Comment on above: For patients on eltr ombopag therapy, use of Dimension [place] TBIL is not recommended. Chloride [Moles/Vol] 101 mmol/L 98-[address] [facility] Work Phone: Cholesterol [Mass/Vol] 174 mg/dL <200 [facility] Work Phone: Comment on above: <200 mg/dL Desirable 200-240 mg/dL Borderline >240 mg/dL High Risk Eosinophils/100 WBC (Bld) 2.2 % 0-5 [facility] Work Phone: Glucose [Mass/Vol] 190 mg/dL 74-106 [facility] Work Phone: Comment on above: Fasting Glucose resu lt greater than or equal to 126 mg/dL suggests DIABETES MELLITUS per A.D.A. criteria. Neutrophils (Bld) [#/Vol] 4.2 10*3/uL 2.0-7.7 [facility] Work Phone: [phone] Neutrophils/100 WBC (Bld) 57.2 % 47-70 [facility] Work Phone: Potassium [Moles/Vol] 3.9 mmol/L 3.5-5.1 [facility] Work Phone: Protein [Mass/Vol] 7.4 g/dL 6.4-8.2 [facility] Work Phone: Sodium [Moles/Vol] 137 mmol/L 136-145 [facility] Work Phone: Triglyceride [Mass/Vol] 234 mg/dL [facility] Work Phone: Comment on above: The drugs N-Acetylcy steine and Metamizole may falsely depress this assay.Serum Triglycerides Reference Interval Normal <150 mg/dL Borderline high 150 - 199 mg/dL High 200 - 499 mg/dL Very High > or = 500 mg/dL WBC (Bld) [#/Vol] 7.3 10*3/uL 4.4-11.0 [facility] Work Phone: Blood erythrocytes count (nu mber/volume)on 09-11-2021 RBC (Bld) [#/Vol] 5.16 10*6/uL 4.6-6.2 [facility] Work Phone: Blood hemoglobin measurement (mass/volume)on 09-11-2021 Hemoglobin (Bld) [Mass/Vol] 14.2 g/dL 13.0-16.5 [facility] Work Phone: Blood lymphocytes/100 leukoc yteson 09-11-2021 Lymphocytes/100 WBC (Bld) 33.1 % 19-41 [facility] Work Phone: Blood monocytes/100 leukocyt eson 09-11-2021 Monocytes/100 WBC (Bld) 6.6 % 0-10 [facility] Work Phone: Blood platelet mean volumeon 09-11-2021 Platelet mean volume (Bld) [Entitic vol] 10.6 fL 6.2-12.0 [facility] Work Phone: Determination of erythrocyte mean corpuscular volume (MCV)on 09-11-2021 MCV (RBC) [Entitic vol] 83.9 fL 80-94 [facility] Work Phone: Hematocrit Auto (Bld) [Volum e fraction]on 09-11-2021 Hematocrit (Bld) [Volume fraction] 43.3 % 40-54 [facility] Work Phone: Iron measurement (mass/mass) on 09-11-2021 Iron (Unsp spec) [Mass/Mass] 62 ug/dL 65-175 [facility] Work Phone: Laboratory - Chemistry and C hemistry - challengeon 09-11-2021 ALP [Catalytic activity/Vol] 95 U/L 45-117 [facility] Work Phone: [phone] ALT [Catalytic activity/Vol] 29 U/L 16-61 [facility] Work Phone: [phone] CO2 [Moles/Vol] 29.0 mmol/L 21.0-32.0 [facility] Work Phone: Globulin (S) [Mass/Vol] 4.1 g/dL 2.2-4.2 [facility] Work Phone: Magnesium [Mass/Vol] 1.8 mg/dL 1.6-2.[address] [facility] Work Phone: Urea nitrogen/Creatinine [Mass ratio] 25.8 mg/mg 10-20 [facility] Work Phone: Laboratory - Hematology and Cell countson 09-11-2021 Erythrocyte distribution width (RBC) [Entitic vol] 42.2 fL 35.1-43.9 [facility] Work Phone: Erythrocyte distribution width (RBC) [Ratio] 13.8 % 11.6-14.6 [facility] Work Phone: Immature granulocytes/100 WBC (Bld) 0.400 % 0.0-0.9 [facility] Work Phone: Comment on above: IG% - Immature Granu locytes (promyelocytes, myelocytes and metamyelocytes) > 1% indicates that a LEFT SHIFT is Present. MCH (RBC) [Entitic mass] 27.5 pg 27.0-32.0 [facility] Work Phone: Nucleated RBC/100 WBC (Bld) [Ratio] 0 % 0-5 [facility] Work Phone: MCHC Auto (RBC) [Mass/Vol]on 09-11-2021 MCHC (RBC) [Mass/Vol] 32.8 g/dL 32-36 [facility] Work Phone: No Panel Informationon 09-11 Estimated GFR (MDRD) Amer 155 mL/min >60 [facility] Work Phone: Comment on above: GFR Calc Estimated GFR (MDRD) Non-Af Amer 128 mL/min >60 [facility] Work Phone: Comment on above: Non- GFR Calc Platelets bldon 09-11-2021 Platelets (Bld) [#/Vol] 174 10*3/uL 150-450 [facility] Work Phone: Serum or plasma albumin everardo urement (mass/volume)on 09-11-2021 Albumin [Mass/Vol] 3.3 g/dL 3.2-5.0 [facility] Work Phone: Serum or plasma albumin/glob ulin mass ratioon 09-11-2021 Albumin/Globulin [Mass ratio] 0.8 {ratio} 0.9-2.4 [facility] Work Phone: Serum or plasma calcium everardo urement (mass/volume)on 09-11-2021 Calcium [Mass/Vol] 8.5 mg/dL 8.5-10.1 [facility] Work Phone: Serum or plasma cholesterol in HDL measurement (mass/volume)on 09-11-2021 Cholesterol in HDL [Mass/Vol] 39 mg/dL [facility] Work Phone: Comment on above: The drugs N-Acetylcy steine and Metamizole may falsely depress this assay. Reference Range HDL <40 mg/dL Low HDL Cholesterol HDL >or= 60 mg/dL High HDL Cholesterol Serum or plasma cholesterol in VLDL measurement (mass/volume)on 09-11-2021 Cholesterol in VLDL [Mass/Vol] 47 mg/dL 5-40 [facility] Work Phone: Serum or plasma creatinine m easurement (mass/volume)on 09-11-2021 Creatinine [Mass/Vol] 0.66 mg/dL 0.70-1.30 [facility] Work Phone: Comment on above: The validity of the calculated GFR & GFRAA in patients over 70 years has not been determined. Clinical correlation is essential. Serum or plasma ferritin hilda surement (mass/volume)on 09-11-2021 Ferritin [Mass/Vol] 28 ng/mL 26-388 [facility] Work Phone: Serum or plasma low density lipoprotein (LDL) cholesterol measurement (mass/volume)on 09-11-2021 Cholesterol in LDL [Mass/Vol] 88 mg/dL 0-130 [facility] Work Phone: Serum or plasma urea nitroge n measurement (mass/volume)on 09-11-2021 Urea nitrogen [Mass/Vol] 17 mg/dL 7-18 [facility] Work Phone: Thin prep Papanicolaou smear with manual screeningon 09-11-2021 Thin prep Papanicolaou smear with manual screening 23 U/L 15-37 [facility] Work Phone: Thin prep Papanicolaou smear with manual screening 7 5-15 [facility] Work Phone: Whole blood hemoglobin A1c/t otal hemoglobin ratio (mass fraction)on 09-11-2021 HbA1c (Bld) [Mass fraction] 9.5 % 3.8-5.6 [facility] Work Phone: Comment on above: Normal < 5.7 % Predi abetic 5.7 - 6.4 % Diabetic >or= 6.5 % Please note range changes. Brain Natri. Peptideon 02-10 Natriuretic peptide B mass conc (Bld) Normal [facility] Comment on above: Result Comment: Pro- BNP Reference Range:Rule Out: <300[place]: Age <50 300-450 Age 50-75 300-900 Age >75 300-1800Usually represents mild to moderate HF but other cardiopulmonary causes cannot be ruled out.Rule In: Age <50 >450 Age 50-75 >900 Age >75 >1800 Performed By: #### C DP, BNP, CP, TROPI ####[address] [place] [address] Natriuretic peptide B mass conc (Bld) 48 pg/mL Normal <300 [facility] Comment on above: Result Comment: Pro- BNP results cannot be compared to BNP results. Performed By: #### C DP, BNP, CP, TROPI ####[address] [place] [address] CBC with Diffon 02-10-2018 Abs. Basophil 0.00 k/uL Normal 0.0-0.2 [facility] Comment on above: Performed By: #### C DP, BNP, CP, TROPI ####[address] [place] [address] Abs.Neutrophil (Seg) 5.70 k/uL Normal 2.1-6.5 [facility] Comment on above: Performed By: #### C DP, BNP, CP, TROPI ####[address] [place] [address] Auto Diff Performed YES Normal [facility] Comment on above: Performed By: #### C DP, BNP, CP, TROPI ####[address] [place] [address] Basophils/100 WBC Auto (Bld) 0 % Normal 0-2 [facility] Comment on above: Performed By: #### C DP, BNP, CP, TROPI ####[address] [place] [address] Eosinophils Auto #/vol (Bld) 0.20 10*3/uL Normal 0.0-0.4 [facility] Comment on above: Performed By: #### C DP, BNP, CP, TROPI ####[address] [place] [address] Eosinophils/100 WBC Auto (Bld) 2 % Normal 0-5 [facility] Comment on above: Performed By: #### C DP, BNP, CP, TROPI ####[facility] [place] [address] Erythrocyte distribution width Auto Ratio (RBC) 14.9 % Normal 12.1-15.2 [facility] Comment on above: Performed By: #### C DP, BNP, CP, TROPI ####[facility] [place] [address] Hematocrit Auto Volume Fraction (Bld) 40.1 % Low 41-53 [facility] Comment on above: Performed By: #### C DP, BNP, CP, TROPI ####[facility] [place] [address] Hemoglobin mass conc (Bld) 13.4 g/dL Low 13.5-17.5 [facility] Comment on above: Performed By: #### C DP, BNP, CP, TROPI ####[place] [address] [place] [address] Lymphocytes Auto #/vol (Bld) 1.80 10*3/uL Normal 1.0-4.8 [facility] Comment on above: Performed By: #### C DP, BNP, CP, TROPI ####[facility] [place] [address] Lymphocytes/100 WBC Auto (Bld) 22 % Normal 13-44 [facility] Comment on above: Performed By: #### C DP, BNP, CP, TROPI ####[facility] [place] [address] MCH Auto Entitic mass (RBC) 28.0 pg Normal 26-34 [facility] Comment on above: Performed By: #### C DP, BNP, CP, TROPI ####[facility] [place] [address] MCHC Auto mass conc (RBC) 33.3 g/dL Normal 31-37 [facility] Comment on above: Performed By: #### C DP, BNP, CP, TROPI ####[facility] [place] [address] MCV Auto Entitic volume (RBC) 84.0 fL Normal 80-100 [facility] Comment on above: Performed By: #### C DP, BNP, CP, TROPI ####[facility] [place] [address] Monocytes Auto #/vol (Bld) 0.50 10*3/uL Normal 0.0-1.0 [facility] Comment on above: Performed By: #### C DP, BNP, CP, TROPI ####[place] [address] [place] [address] Monocytes/100 WBC Auto (Bld) 6 % Normal 5-9 [facility] Comment on above: Performed By: #### C DP, BNP, CP, TROPI ####[facility] [place] [address] Neutrophil (Seg) 70 % Normal 39-75 [facility] Comment on above: Performed By: #### C DP, BNP, CP, TROPI ####[facility] [place] [address] Platelets Auto #/vol (Bld) 223 10*3/uL Normal 140-450 [facility] Comment on above: Performed By: #### C DP, BNP, CP, TROPI ####[place] [address] [place] [address] RBC Auto #/vol (Bld) 4.77 10*6/uL Normal 4.5-5.9 [facility] Comment on above: Performed By: #### C DP, BNP, CP, TROPI ####[facility] [place] [address] WBC Auto #/vol (Bld) 8.3 10*3/uL Normal 3.5-11.0 [facility] Comment on above: Performed By: #### C DP, BNP, CP, TROPI ####[facility] [place] [address] Abs.Imm.Granulocyte NOT REPORTED Normal 0.00-0.30 [facility] Comment on above: Performed By: #### C DP, BNP, CP, TROPI ####[facility] [place] [address] Immature granulocytes #/vol (Bld) NOT REPORTED Normal 0 [facility] Comment on above: Performed By: #### C DP, BNP, CP, TROPI ####[facility] [place] [address] NRBC Automated NOT REPORTED Normal [facility] Comment on above: Performed By: #### C DP, BNP, CP, TROPI ####[facility] [place] [address] Platelet mean volume Auto Entitic volume (Bld) NOT REPORTED Normal 6.0-12.0 [facility] Comment on above: Performed By: #### C DP, BNP, CP, TROPI ####[facility] [place] [address] Platelets Auto #/vol (Bld) NOT REPORTED Normal [facility] Comment on above: Performed By: #### C DP, BNP, CP, TROPI ####[facility] [place] [address] RBC morphology finding Nom (Bld) NOT REPORTED Normal [facility] Comment on above: Performed By: #### C DP, BNP, CP, TROPI ####[facility] [place] [address] WBC Morphology NOT REPORTED Normal [facility] Comment on above: Performed By: #### C DP, BNP, CP, TROPI ####[facility] [place] [address] Comp Metabolic Profon 2017 (cont.) Normal [facility] Comment on above: Result Comment: Aver age GFR for 60-69 years old: 85 mL/min/1.73sq mChronic Kidney Disease: <60 mL/min/1.73sq mKidney failure: <15 mL/min/1.73sq meGFR calculated using average adult body mass. Additional eGFR calculator available at:http://[email or web address]/multiple_crcl_2012.htm Performed By: #### C DP, BNP, CP, TROPI ####[place] [address] [place] [address] Albumin mass conc 3.6 g/dL Normal 3.5-5.2 [facility] Comment on above: Performed By: #### C DP, BNP, CP, TROPI ####[place] [address] [place] [address](782) Alkaline Phos 89 U/L Normal 40-129 [facility] Comment on above: Performed By: #### C DP, BNP, CP, TROPI ####[facility] [place] [phone] ALT enzyme act/vol 18 U/L Normal 5-41 [facility] Comment on above: Performed By: #### C DP, BNP, CP, TROPI ####[facility] [place] [address]([phone]) Anion gap 3 molar conc 13 mmol/L Normal 9-17 [facility] Comment on above: Performed By: #### C DP, BNP, CP, TROPI ####[facility] [facility] [place] [address](813) AST enzyme act/vol 19 U/L Normal <40 [facility] Comment on above: Performed By: #### C DP, BNP, CP, TROPI ####[address] [place] [address] Bilirubin Ql (U) 0.36 mg/dL Normal 0.30-1.20 [facility] Comment on above: Performed By: #### C DP, BNP, CP, TROPI ####[address] [place] [address] BUN/CRE Ratio 19 Normal 9-20 [facility] Comment on above: Performed By: #### C DP, BNP, CP, TROPI ####[address] [place] [address] Calcium mass conc 9.8 mg/dL Normal 8.6-10.4 [facility] Comment on above: Performed By: #### C DP, BNP, CP, TROPI ####[place] [address] Chloride molar conc 97 mmol/L Low 98-107 [facility] Comment on above: Performed By: #### C DP, BNP, CP, TROPI ####[place] [address] CO2 molar conc 27 mmol/L Normal 20-31 [facility] Comment on above: Performed By: #### C DP, BNP, CP, TROPI ####[address] [place] [address] Creatinine mass conc 0.67 mg/dL Low 0.70-1.20 [facility] Comment on above: Performed By: #### C DP, BNP, CP, TROPI ####[address] [place] [address] GFR, Amer >60 Normal >60 [facility] Comment on above: Performed By: #### C DP, BNP, CP, TROPI ####[facility] [place] [address] GFR,non Amer >60 Normal >60 [facility] Comment on above: Performed By: #### C DP, BNP, CP, TROPI ####[address] [place] [address] Glucose mass conc 152 mg/dL High 70-99 [facility] Comment on above: Performed By: #### C DP, BNP, CP, TROPI ####[address] [place] [address] Potassium molar conc 3.9 mmol/L Normal 3.7-5.3 [facility] Comment on above: Performed By: #### C DP, BNP, CP, TROPI ####[address] [place] [address] Protein mass conc 6.8 g/dL Normal 6.4-8.3 [facility] Comment on above: Performed By: #### C DP, BNP, CP, TROPI ####[address] [place] [address] Sodium molar conc 137 mmol/L Normal 135-144 [facility] Comment on above: Performed By: #### C DP, BNP, CP, TROPI ####[address] [place] [address] Urea nitrogen mass conc 13 mg/dL Normal 8-23 M [facility] Comment on above: Performed By: #### C DP, BNP, CP, TROPI ####[place] [address] [facility] [place] [address] Albumin/Globulin mass ratio NOT REPORTED Normal 1.0-2.5 [facility] Comment on above: Performed By: #### C DP, BNP, CP, TROPI ####[address] [phone] Staging: NOT REPORTED Normal [facility] Comment on above: Performed By: #### C DP, BNP, CP, TROPI ####[place] [address] [place] [address] ED Noteon 02-10-2018 HIM IP Note OR Program Engineer Normal [facility] HIM IP Note OR Program Engineer Normal [facility] HIM IP Note OR Program Engineer Normal [facility] ED Provider Noteon 8 HIM IP Note OR Program Engineer Normal [facility] Troponinon 02-10-2018 Troponin I.cardiac mass conc Normal [facility] Comment on above: Result Comment: Refe rence [...] By: #### C DP, BNP, CP, TROPI ####[place] [address] [facility] [place] [address] Troponin T.cardiac mass conc ug/L Normal <0.03 [facility] Comment on above: Result Comment: Trop onin T results cannot be compared to Troponin-I results. Performed By: #### C DP, BNP, CP, TROPI ####[place] [address] [phone] Urinalysis, Routineon 2017 Acetaminophen mass conc Negative Normal NEG [facility] Comment on above: Performed By: #### U A ####[place] [address] [address] Bilirubin, SemiQt,Ur Negative Normal NEG [facility] Comment on above: Performed By: #### U A ####[place] [address] [address] Color YELLOW Normal YEL [facility] Comment on above: Performed By: #### U A ####[facility] [place] [address] Comment Normal [facility] Comment on above: Performed By: #### U A ####[facility] [place] [address] Glucose,Semi-qnt,Ur Negative Normal NEG [facility] Comment on above: Performed By: #### U A ####[facility] [place] [address] Hemoglobin, Ur Negative Normal NEG [facility] Comment on above: Performed By: #### U A ####[facility] [place] [address] Leuckocyte Esterase Negative Normal NEG [facility] Comment on above: Performed By: #### U A ####[facility] [place] [address] Nitrite,Ur Negative Normal NEG [facility] Comment on above: Performed By: #### U A ####[facility] [place] [address] PH,Ur 6.5 Normal 5.0-8.0 [facility] Comment on above: Performed By: #### U A ####[facility] [place] [address] Protein mass conc Negative Normal NEG [facility] Comment on above: Performed By: #### U A ####[facility] [place] [address] Spec. [place],Ur 1.015 Normal 1.005-1.030 [facility] Comment on above: Performed By: #### U A ####[facility] [phone] Turbidity CLEAR Normal CLEAR [facility] Comment on above: Performed By: #### U A ####[facility] [place] [address] Urobilinogen,Ur Normal Normal NORM [facility] Comment on above: Performed By: #### U A ####[facility] [place] [address] BMPon 11-24-2017 Anion gap 6 mmol/L Normal 5-16 [facility] Comment on above: Performed By: #### L 500.82242, L500.86108, L500.32773 ####[facility] [address] [place], [place] [address]Za# [phone] BUN/Creatinine Ratio 20 mg/mg Normal 15-24 [facility] Comment on above: Performed By: #### L 500.36009, L500.42924, L500.38845 ####[facility] [address] [place], [place] [address]Eu# [phone] Calcium 9.1 mg/dL Normal 8.5-10.1 [facility] Comment on above: Performed By: #### L 500.51508, L500.32574, L500.29094 ####[facility] [address] [place], [place] [address]Vp# [phone] Chloride 104 mmol/L Normal 98-107 [facility] Comment on above: Performed By: #### L 500.42711, L500.24704, L500.77923 ####[facility] [id number] [place], [place] [address]Qj# [phone] CO2 29 mmol/L Normal 21-32 [facility] Comment on above: Performed By: #### L 500.96130, L500.44046, L500.55645 ####[facility] [address]TF[address] [place], [place] [address]It# [phone] Creatinine 0.612 mg/dL Low 0.670-1.170 [facility] Comment on above: Result Comment: Lelia ents receiving either N-Acetylcysteine (NAC) orMetamizole prior to venipuncture, may have falsely depressedresults. Performed By: #### L 500.80917, L500.26079, L500.42379 ####[facility] [address]AR[address] [place], [place] [address]Sg# [phone] Glucose mass conc 148 mg/dL High 70-100 [facility] Comment on above: Result Comment: 70-1 00- Normal Fasting; 100-125 Impaired Fasting; greaterthan 126 on more than one result- Diabetes. ADA guidelines.Results may be falsely elevated after the administration ofSulfapyridine.Results may be falsely depressed after the administration ofSulfasalazine. Performed By: #### L 500.79299, L500.01459, L500.39228 ####[facility] [id number] [place], [place] [address]Lo# [phone] Potassium molar conc 4.1 mmol/L Normal 3.5-5.1 [facility] Comment on above: Performed By: #### L 500.66622, L500.66945, L500.15930 ####[facility] [id number] [place], [place] [address]Hi# [phone] Sodium 139 mmol/L Normal 136-145 [facility] Comment on above: Performed By: #### L 500.75049, L500.99501, L500.13400 ####[facility] [id number] [place], [place] [address]Pa# [phone] Urea nitrogen 12 mg/dL Normal 7-26 [facility] Comment on above: Performed By: #### L 500.91289, L500.43372, L500.18804 ####[facility] [address]YF[address]FEE[address] [place], [place] [address]Wd# [phone] GFR ESTon 11-24-2017 IF AMER Greater than 60 [facility] Comment on above: Performed By: #### L 500.92965, L500.27039, L500.24413 ####[facility] AAQFOXTNSY[address]164 [place], [place] [address]Oh# [phone] IF non-AFR AMER Greater than 60 Normal [facility] Comment on above: Performed By: #### L 500.22319, L500.15295, L500.56446 ####[facility] VTOZAAYDRE[address] [place], [place] [address]Yw# [phone] HGB A1C GLYCOHBon 11-24-2017 Hemoglobin A1c/Hemoglobin.total mass fraction (Bld) 6.0 % Normal 4.3-6.0 [facility] Comment on above: Performed By: #### L 550.96787 ####[facility] SUFGJVOPBU3613 [place], [place] [address]Wd# [phone] LIPIDon 11-24-2017 Cholesterol 179 mg/dL Normal 0-199 [facility] Comment on above: Performed By: #### L 500.25873, L500.13481, L500.09634 ####[facility] TCUCWYWKUQ[address] [place], [place] [address]Qy# [phone] HDL Cholesterol 41 mg/dL Normal GREATER TN 40 [facility] Comment on above: Result Comment: Lelia ents receiving Metamizole prior to venipuncture, mayhave falsely depressed results. Performed By: #### L 500.04033, L500.90105, L500.99482 ####[facility] BRQQCBXNXI[address]257 [place], [place] [address]Se# [phone] LDL Cholesterol 105 MG/DL Normal 0-129 [facility] Comment on above: Result Comment: ___C HOLESTEROL/HDL RATIO RISK___ CHD RISK = Total CHOL LDL HDL (CHOL/HDL) Recommended <200 <130 >35 <3.4 ----Borderline 200-239 130-159 3.4-4.99 --------High >240 >160 >5.0 ---- Performed By: #### L 500.16031, L500.62113, L500.11642 ####[facility] EK[address]FBVZLA[address] [place], [place] [address]Fd# [phone] Triglyceride 165 mg/dL High 30-149 [facility] Comment on above: Result Comment: Lelia ents receiving either N-Acetylcysteine (NAC) orMetamizole prior to venipuncture, may have falsely depressedresults. Performed By: #### L 500.39728, L500.09737, L500.15866 ####[facility] U[address]YOMORVR[address] [place], [place] [address]Ut# [phone] CNPAdeola 10-03-2017 CNPN Telephone (HEMAWS) LANI ZARAGOZA ([id number]) 1955 MDate Time Provider Department10/03/17 MACHO JUAREZ During your visit today, we recorded the following information about you:Dorinda Car MONICO 10/03/2017 5:11 PM SignedPatient contacted office and [...] come any other time d/t working in [place].Dorinda Car Yaritza Juarez MD 10/04/2017 8:28 AM SignedYES. Get his labs before visit. If his M protein is unchanged, then he couldsee JACEY.Jorge Lowry Benchoff PSR 10/04/2017 1:09 PM SignedMessage left for [...] - Fully AssessedReason for Visit: Patient Question [5817]Prescriptions as of 10/03/2017 Sig: ASPIRIN 81 MG [...] Status:Closed by Joyce KAUFMAN RN on 10/04/17 [facility] CNOVSPon 04-05-2017 CNOVSP Visit (SP) Office (HEMAWS) LANI ZARAGOZA ([id number]) 1955 MDate Time Provider Vuwsyketbv62/17/17 4:00 PM MACHO JUAREZ During your visit today, we recorded the following information about you: Temperature Pulse Blood pressure Weight 98.9 degrees 74/minute 136/63 181.7 kgLapman MD Ann 04/06/2017 7:56 AM SignedPATIENT NAME: Lani Taylor Mila.CLINIC NO: [id number].ATTENDING PHYSICIAN: Macho Juarez MD.DATE OF SERVICE:04/05/2017.?DI AGNOSIS: [...] on his arms. 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 [...] DATA:?Component Latest Ref Rng ANDamp; Units 03/16/2017WBC, [place] 3.70 - 11.00 k/uL 8.77RBC, [place] 4.20 - 6.00 m/uL 4.79Hemoglobin, [place] 13.0 - 17.0 g/dL 13.2Hematocrit, [place] 39.0 - 51.0 % 39.9MCV, [place] 80.0 - 100.0 fL 83.3MCH, [place] 26.0 - 34.0 pg 27.6MCHC, [place] 30.5 [...] once daily.-Repeat Skeletal survey if indicated.Macho Juarez, [facility]: Dr. Jing BeachReferrcaitlyn Provider: MACHO JUAREZ [[id number]]Allergies As of Date: 04/05/2017 Noted Allergy ReactionAMPICILLIN 03/16/2017 4 - HivesPENICILLINS 03/16/2017 16 - UnknownDate Reviewed: 04/05/2017Reviewed by: Wanda (Rn) ZEN Greenberg - Fully AssessedReason for Visit: Established Patient [175]Primary Visit Diagnosis:MGUS (monoclonal gammopathy of unknown significance) [D47.2] Other Visit Diagnoses:Polyneuropat hy in other diseases classified elsewhere ([facility]) [G63] Anemia, unspecified type [D64.9] Type 2 diabetes mellitus with diabetic polyneuropathy, without long-term current use of insulin ([facility]) [E11.42]Level of Service: EST PATIENT VISIT LEVEL 3 [[id number]]Disposition: Return in about 6 months (around 10/04/2017).Follow-up [...] by MACHO JUAREZ MD on 04/06/17 Normal [facility] [place] [facility] PROGRESSon 04-05-2017 PROGRESS HNO ID: [id number]: Macho Ferreirae: (none)Author Type: PhysicianType: Progress NotesFiled: 04/06/2017 7:56 AMNote Text:PATIENT NAME: Lani Zaragoza.CLINIC NO: [id number].ATTENDING PHYSICIAN: Macho Juarez MD.DATE OF SERVICE:04/05/2017.?DI AGNOSIS: [...] on his arms. 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 [...] DATA:?Component Latest Ref Rng AND Units 03/16/2017WBC, [place] 3.70 - 11.00 k/uL 8.77RBC, [place] 4.20 - 6.00 m/uL 4.79Hemoglobin, [place] 13.0 - 17.0 g/dL 13.2Hematocrit, [place] 39.0 - 51.0 % 39.9MCV, [place] 80.0 - 100.0 fL 83.3MCH, [place] 26.0 - 34.0 pg 27.6MCHC, [place] 30.5 [...] once daily.-Repeat Skeletal survey if indicated.Macho Juarez, [facility]: Dr. Jing Beach Normal [facility] [place] [facility] PROGRESSon 03-17-2017 PROGRESS HNO ID: [id number]: Lamar Sage (Rt) Rand Moran: (none)Author Type: TechnicianType: Progress NotesFiled: 03/17/2017 3:04 PMNote Text: Radiology Service Progress NotePATIENT NAME: Lani ZaragozaMRN: [id number] OF SERVICE: March 17, 2017TIME: 1:58 PMPATIENT IDENTITY VERIFICATION COMPLETED USING TWO (2) METHODS: Patientconfirmed name verbally and Date of .PATIENT GENDER DATA: MalePATIENT RELEVANT IMPLANT DATA REVIEWED: Not ApplicableRADIOLOGY DEPARTMENT: General X-ray: Exam(s) Completed: Bone SurveyPERIPHERAL IV DATA: Not applicableSIGNED BY: REJI Parryeptember 2016 1:58 PM Normal [facility] [place] [facility] Period and Volumeon 03-17-20 17 Period 24 hr Normal [facility] [place] [facility] Comment on above: Performed By: #### R ETIC, PTT, IRON, NTBNP, FERR, KLFRS, MMA ####[facility] [address] [place], [place] [phone]#### VITB6 ####[facility] [address] [place], [place] [phone] Volume 1073 mL Normal [facility] [place] [facility] Comment on above: Performed By: #### R ETIC, PTT, IRON, NTBNP, FERR, KLFRS, MMA ####[facility] [address] [place], [place] [phone]#### VITB6 ####[facility] [address] [place], [place] [phone] Protein Urine 24 Hron 2016 Protein Urine 0.11 gm/24 Hr Normal <0.16 [facility] Comment on above: Performed By: #### R ETIC, PTT, IRON, NTBNP, FERR, KLFRS, MMA ####[facility] [address] [place], [place] [phone]#### VITB6 ####[facility] [address] [place], [place] [phone] XR BONE SURVEY ROUTINEon XR BONE SURVEY [...] study. No focal lytic lesions, no pathologic fracture.Program Engineer ist: PSCB Transcribe Date/Time: Mar 20 2017 10:12PDictated by : LIZETH MARTINS MDThis examination was interpreted and the report reviewed and electronically signed by: LIZETH MARTINS MD on Mar 20 2017 10:24PM [id number] Normal [facility] [place] [facility] APTTon 03-16-2017 aPTT 25.6 s Normal 23.0-32.4 [facility] [place] [facility] Comment on above: Result Comment: Unfr [...] laboratory APTT reagent in use throughout the [facility]. Performed By: #### R ETIC, PTT, IRON, NTBNP, FERR, KLFRS, MMA ####[facility] [address] [place], [place] [phone]#### VITB6 ####[facility] [address] [place], [place] [phone] CNOVSPon 03-16-2017 CNOVSP Visit (SP) Office (HEMAWS) LANI ZARAGOZA ([id number]) 1955 [facility] Time Provider Department03/16/17 9:10 AM MACHO JUAREZ During your visit today, we recorded the following information about you: Temperature Pulse Blood pressure Weight 98.1 degrees 93/minute 134/74 180.5 kg Height 1.727 Fernandez Browning LPN, MONICO 03/16/2017 9:46 AM SignedNew patient, discuss recent lab results.. DX: Monoclonal gammYaritza Gracia MD 03/17/2017 7:43 AM SignedHematology and Medical OncologyPATIENT NAME: Lani Zaragoza.CLINIC NO: [id number].ATTENDING PHYSICIAN: Macho Juarez MD.DATE OF SERVICE:03/16/2017.DIAG NOSIS: [...] on his arms. 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 [...] change in bowel habits, rectal bleeding or melena.MEDICATIONS:[facility] Prescriptions:amLODIPi ne (NORVASC) 5 mg tablet [...] DATA:Component Latest Ref Rng ANDamp; Units 03/16/2017WBC, [place] 3.70 - 11.00 k/uL 8.77RBC, [place] 4.20 - 6.00 m/uL 4.79Hemoglobin, [place] 13.0 - 17.0 g/dL 13.2Hematocrit, [place] 39.0 - 51.0 % 39.9MCV, [place] 80.0 - 100.0 fL 83.3MCH, [place] 26.0 - 34.0 pg 27.6MCHC, [place] 30.5 - 36.0 g/dL 33.1RDW, [place] 11.5 - 15.0 % 14.7Platelet Cnt, [place] 150 - 400 k/uL 195MPV, [place] 9.0 - 12.7 fL 9.4Absol Gran Count [...] and amyloidosis: 24-hour urine protein,serum and urine [place]/Lambda light chains. PTT (factor X) because of increasedbruising. 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 Dillan BeachReferrcaitlyn Provider: JING DAWKINS [[id number]]Allergies As of Date: 03/16/2017 Noted Allergy ReactionAMPICILLIN 03/16/2017 4 - HivesPENICILLINS 03/16/2017 16 - UnknownDate Reviewed: Never ReviewedReason for Visit: New Patient [172]Primary Visit Diagnosis:MGUS (monoclonal gammopathy of unknown significance) [D47.2] Other Visit Diagnoses:Polyneuropat hy in other diseases classified elsewhere ([facility]) [G63] Anemia, unspecified type [D64.9] Easy bruising [R23.8] Type 2 diabetes mellitus with diabetic polyneuropathy, without long-term current use of insulin ([facility]) [E11.42] Obesity, Class III, BMI 40-49.9 (morbid obesity) ([facility]) [E66.01]Order(s):XR BONE SURVEY ROUTINE [9526290] Order #: [id number] FUTURE FERRITIN BLD [SQFERR] Order #: [id number] FUTURE METHYLMALONIC ACID [SQMMA] Order #: [id number] FUTURE RETIC COUNT [SQRETIC] Order #: [id number] FUTURE VITAMIN B6/PYRIDOXIN [SQVITB6] Order #: [id number] FUTURE IRON + TIBC [SQIRON] Order #: [id number] FUTURE PROTEIN 24 HR URINE [SQUTP24] Order #: [id number] FUTURE KAPPA/MAYA,FREE,SER [SQKLFRS] Order #: [id number] FUTURE KAPPA, FREE, URINE [SQUFKAPP] Order #: [id number] FUTURE LAMBDA, FREE, URINE [SQUFLAMB] Order #: [id number] FUTURE ACTIVATED PTT [SQPTT] Order #: [id number] FUTURE NT PRO BNP [SQNTBNP] Order #: [id number] FUTURELevel of Service: NEW PATIENT VISIT LEVEL 5 [[id number]]Disposition: Return in about 2 weeks (around 03/30/2017).Follow-up [...] recent lab results.. DX: Monoclonal gammPamela Danni Browning LPNEncounter Status:Closed by MACHO JUAREZ MD on 03/17/17 Normal [facility] [place] [facility] Ferritinon 03-16-2017 Ferritin 84.0 ng/mL Normal 30.3-565.7 [facility] [place] [facility] Comment on above: Performed By: #### R ETIC, PTT, IRON, NTBNP, FERR, KLFRS, MMA ####[address] [place] [phone]#### VITB6 ####[facility] [address] [phone] Iron and TIBCon 03-16-2017 Iron 77 ug/dL Normal 41-186 [facility] [place] [facility] Comment on above: Performed By: #### R ETIC, PTT, IRON, NTBNP, FERR, KLFRS, MMA ####[place] [phone]#### VITB6 ####[facility] [address] [phone] TIBC 329 ug/dL Normal 232-386 [facility] [place] [facility] Comment on above: Performed By: #### R ETIC, PTT, IRON, NTBNP, FERR, KLFRS, MMA ####[place] [phone]#### VITB6 ####[address] [phone] Transferrin Saturatn 23 % Normal 15-57 [facility] Comment on above: Performed By: #### R ETIC, PTT, IRON, NTBNP, FERR, KLFRS, MMA ####[place] [phone]#### VITB6 ####[address] [phone] [place], Free, Urineon 017 [place], Free, Urine 43.90 mg/L High 1.35-24.19 [facility] Comment on above: Result Comment: (NOT E)Test Performed by Brook Mackay,[facility],[address] [place], [place] [address]Smhykce W Yong, M.D., Ph.D., Director of [phone], CLIA [id number] [place],Free,Seron 2016 K/L Ratio, Serum 1.96 High 0.26-1.65 [facility] Comment on above: Performed By: #### R ETIC, PTT, IRON, NTBNP, FERR, KLFRS, MMA ####[facility] Ave[address] [place] [phone]#### VITB6 ####[facility] [address] [place], [place] [phone] [place], Free, Serum 21.0 mg/L High 3.30-19.40 [facility] Comment on above: Result Comment: Rare ly, increased serum free light chains values may not be detected due to antigen excess phenomenon. Results should always be correlated with other laboratory results and clinical findings. Performed By: #### R ETIC, PTT, IRON, NTBNP, FERR, KLFRS, MMA ####[facility], [place] [phone]#### VITB6 ####[facility] [address] [place], [place] [phone] [place], Free, Serum 10.7 mg/L Normal 5.7-26.3 [facility] Comment on above: Result Comment: Rare ly, increased serum free light chains values may not be detected due to antigen excess phenomenon. Results should always be correlated with other laboratory results and clinical findings. Performed By: #### R ETIC, PTT, IRON, NTBNP, FERR, KLFRS, MMA ####[place] [address] Ave[address], [place] [phone]#### VITB6 ####[facility] [address] [place], [place] [phone] L[place], Free, Urineon 2016 [place], Free, Urine 5.96 mg/L Normal 0.24-6.66 [facility] Comment on above: Result Comment: (NOT E)Test Performed by [facility],[place] [facility],[address] [place], [place] [address]Ngvihelphu Beach M.D., Ph.D., Director of [phone], CLIA [id number] Methylmalonic Acidon 017 Methylmalonic Acid 206 nmol/L Normal 79-376 [facility] Comment on above: Result Comment: This test was developed and its performance characteristics determined by [facility] Pathology and Laboratory Medicine [place] ([facility]).It has not been cleared or approved by the FDA. [facility] is regulated under CLIA as qualified to perform high-complexity testing.This test is used for clinical purposes. It should not be regarded as investigational or for research. Performed By: #### R ETIC, PTT, IRON, NTBNP, FERR, KLFRS, MMA ####[address] [phone]#### VITB6 ####AR[address] [place], [place] [phone] NT Pro BNPon 03-16-2017 PRO B Natr Peptide <50 Normal <125 [facility] Comment on above: Performed By: #### R ETIC, PTT, IRON, NTBNP, FERR, KLFRS, MMA ####[address] [phone]#### VITB6 ####ARUP [address] [place], [place] [phone] PROGRESSon 03-16-2017 PROGRESS HNO ID: [id number]: Macho Mejia: (none)Author Type: PhysicianType: Progress NotesFiled: 03/17/2017 7:43 AMNote Text:Hematology and Medical OncologyPATIENT NAME: Lani Zaragoza.CLINIC NO: [id number].ATTENDING PHYSICIAN: Macho Juarez MD.DATE OF SERVICE:03/16/2017.DIAG NOSIS: [...] on his arms. 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 [...] No change inbowel habits, rectal bleeding or melena.MEDICATIONS:[facility] Out[facility] Prescriptions:amLODIPi ne (NORVASC) 5 mg tablet [...] 03/16/2017WBC, Shiva 3.70 - 11.00 k/uL 8.77RBC, [place] 4.20 - 6.00 m/uL 4.79Hemoglobin, Shiva 13.0 - 17.0 g/dL 13.2Hematocrit, Shiva 39.0 - 51.0 % 39.9MCV, [place] 80.0 - 100.0 fL 83.3MCH, [place] 26.0 - 34.0 pg 27.6MCHC, [place] 30.5 - 36.0 g/dL 33.1RDW, [place] 11.5 - 15.0 % 14.7Platelet Cnt, Shiva 150 - 400 k/uL 195MPV, [place] 9.0 - 12.7 fL 9.4Absol Gran Count [...] and amyloidosis: 24-hour urineprotein, serum and urine [place]/Lambda light chains. PTT (factor X) becauseof increased bruising. 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 Dillan Beach Normal [facility] [place] [facility] Reticulocyteon 03-16-2017 Abs Retic 0.115 M/uL High 0.0180-0.100 0 [facility] [place] [facility] Comment on above: Performed By: #### R ETIC, PTT, IRON, NTBNP, FERR, KLFRS, MMA ####[facility] [address] [place], [place] [phone]#### VITB6 ####ARUP [address] [place], [place] [phone] Retic% 2.4 % High 0.4-2.0 [facility] [place] [facility] Comment on above: Performed By: #### R ETIC, PTT, IRON, NTBNP, FERR, KLFRS, MMA ####[facility] [address] [place], [place] [phone]#### VITB6 ####ARUP [address] [place], [place] [phone] Vitamin B6 Plasmaon 03-16-20 17 Vitamin B6 Plasma 12.2 nmol/L Low 20.0-125.0 [facility] Comment on above: Result Comment: (NOT E)INTERPRETIVE INFORMATION: Vitamin B6 (Pyridoxal 5-Phosphate)Pyridoxal 5'-phosphate measured in a specimen collected followingan 8-hour or overnight fast accurately indicates vitamin C2manlszezzxp status. Non-fasting specimen concentration reflectsrecent vitamin intake.Test developed and characteristics determined by [employer]. See Compliance Statement B: [facility]/CSPerformed by [employer],[address] [place] [address] irt.[facility], Thompson Delvalle MD, Lab. Director Performed By: #### R ETIC, PTT, IRON, NTBNP, FERR, KLFRS, MMA ####[facility] [place], [place] [phone]#### VITB6 ####[employer] [place], [place] [phone] Shiva Abs Gr + CBCon 03-16 Absol Gran Count 5.10 k/uL Normal 1.45-7.50 [facility] Erythrocyte distribution width Auto Ratio (RBC) 14.7 % Normal 11.5-15.0 [facility] [place] [facility] Erythrocytes (RBC) 4.79 10*6/uL Normal 4.20-6.00 [facility] Hematocrit (HCT) 39.9 % Normal 39.0-51.0 [facility] Hemoglobin mass conc (Bld) 13.2 g/dL Normal 13.0-17.0 [facility] [place] [facility] MCH 27.6 pg Normal 26.0-34.0 [facility] [place] [facility] MCHC mass conc (RBC) 33.1 g/dL Normal 30.5-36.0 [facility] MCV 83.3 fL Normal 80.0-100.0 [facility] [place] [facility] Platelet mean volume (PMV) 9.4 fL Normal 9.0-12.7 [facility] [place] [facility] Comment on above: Result Comment: Test performed at: [facility], [address] [place] [address]., [place] [address]. WBC (Leukocytes) 8.77 10*3/uL Normal 3.70-11.00 [facility] Platelet Cnt 195 k/uL Normal 150-400 [facility] Vital Signs Date Time Vital Sign Value Performing Clinician Sharri lei 12-11-2024 10:06-0400 Body mass index (BMI) [Ratio] 55.2 kg/m2 Dr. Bernabe Reese MD Work Phone: [facility] 12-11-2024 10:06-0400 Body temperature 97.5 [degF] Dr. Bernabe Reese MD Work Phone: [facility] 12-11-2024 10:06-0400 Diastolic blood pressure 53 mm[Hg] Dr. Bernabe Reese MD Work Phone: [facility] 12-11-2024 10:06-0400 Heart rate 65 /min Dr. Bernabe Reese MD Work Phone: [facility] 12-11-2024 10:06-0400 Respiratory rate 18 /min Dr. Bernabe Reese MD Work Phone: [facility] 12-11-2024 10:06-0400 Systolic blood pressure 95 mm[Hg] Dr. Bernabe Reese MD Work Phone: [facility] 12-04-2024 10:12-0400 Body mass index (BMI) [Ratio] 55.2 kg/m2 Dr. Bernabe Reese MD Work Phone: [facility] 12-04-2024 10:12-0400 Body temperature 96.5 [degF] Dr. Bernabe Reese MD Work Phone: [facility] 12-04-2024 10:12-0400 Diastolic blood pressure 70 mm[Hg] Dr. Bernabe Reese MD Work Phone: [facility] 12-04-2024 10:12-0400 Heart rate 70 /min Dr. Bernabe Reese MD Work Phone: [facility] 12-04-2024 10:12-0400 Respiratory rate 16 /min Dr. Bernabe Reese MD Work Phone: [facility] 12-04-2024 10:12-0400 Systolic blood pressure 141 mm[Hg] Dr. Bernabe Reese MD Work Phone: [facility] 11-18-2024 00:32-0400 Body weight 164.[address] Bernabe Reese MD Work Phone: [facility] 11-13-2024 10:23-0400 Body mass index (BMI) [Ratio] 55.2 kg/m2 Dr. Bernabe Reese MD Work Phone: [facility] 11-13-2024 10:23-0400 Body temperature 96.2 [degF] Dr. Bernabe Reese MD Work Phone: [facility] 11-13-2024 10:23-0400 Diastolic blood pressure 67 mm[Hg] Dr. Bernabe Reese MD Work Phone: [facility] 11-13-2024 10:23-0400 Heart rate 69 /min Dr. Bernabe Reese MD Work Phone: [facility] 11-13-2024 10:23-0400 Respiratory rate 18 /min Dr. Bernabe Reese MD Work Phone: [facility] 11-13-2024 10:23-0400 Systolic blood pressure 127 mm[Hg] Dr. Bernabe Reese MD Work Phone: [facility] 10-30-2024 07:33-0400 Body temperature 98.01 [degF] Kevin Soriano MD Work Phone: [facility] 10-30-2024 07:33-0400 Diastolic blood pressure 71 mm[Hg] Kevin Soriano MD Work Phone: [facility] 10-30-2024 07:33-0400 Heart rate 66 /min Kevin Soriano MD Work Phone: [facility] 10-30-2024 07:33-0400 Respiratory rate 20 /min Kevin Soriano MD Work Phone: 2(520)841-348332 [place] [address] 10-30-2024 07:33-0400 SaO2% (BldA) [Mass fraction] 91 % Kevin Soriano MD Work Phone: 8(321)703-065132 [place] [address] 10-30-2024 07:33-0400 Systolic blood pressure 124 mm[Hg] Kevin Soriano MD Work Phone: 3(704)758-001132 [place] [address] 10-26-2024 09:00-0400 Body mass index (BMI) [Ratio] 54.34 kg/m2 Kevin Soriano MD Work Phone: 8(793)380-514132 [place] [address] 10-26-2024 09:00-0400 Body weight 166.92 kg Kevin Soriano MD Work Phone: 2(807)626-405632 [place] [address] 10-18-2024 00:21-0400 Body weight 164.[address] Bernabe Reese MD Work Phone: [facility] 10-16-2024 23:23-0400 Body height 175.3 cm Kevin Soriano MD Work Phone: 6(599)456-322032 [place] [address] 10-16-2024 18:30-0400 Diastolic blood pressure 85 mm[Hg] Dr. Bernabe Reese MD Work Phone: [facility] 10-16-2024 18:30-0400 Heart rate 85 /min Dr. Bernabe Reese MD Work Phone: [facility] 10-16-2024 18:30-0400 Systolic blood pressure 136 mm[Hg] Dr. Bernabe Reese MD Work Phone: [facility] 10-16-2024 18:00-0400 Inhaled oxygen flow rate 3 L/min Dr. Bernabe Reese MD Work Phone: [facility] 10-16-2024 18:00-0400 Respiratory rate 16 /min Dr. Bernabe Reese MD Work Phone: [facility] 10-16-2024 18:00-0400 SaO2% (BldA) [Mass fraction] 98 % Dr. Bernabe Reese MD Work Phone: [facility] 10-16-2024 17:00-0400 Body mass index (BMI) [Ratio] 52.7 kg/m2 Dr. Bernabe Reese MD Work Phone: [facility] 10-16-2024 15:45-0400 Body temperature 97.2 [degF] Dr. Bernabe Reese MD Work Phone: 1(819)139-029591 [place] [address] 10-15-2024 07:13-0400 Inhaled oxygen concentration 30 % Dr. Bernabe Reese MD Work Phone: 4(250)464-978891 [place] [address] 10-13-2024 14:34-0400 Body height 172.[address] Bernabe Reese MD Work Phone: [facility] 10-13-2024 14:34-0400 Body weight 157.[address] Bernabe Reese MD Work Phone: [facility] 2024 16:00-0400 Diastolic blood pressure 81 mm[Hg] Dr. Bernabe Reese MD Work Phone: [facility] 2024 16:00-0400 Heart rate 93 /min Dr. Bernabe Reese MD Work Phone: [facility] 2024 16:00-0400 Respiratory rate 18 /min Dr. Bernabe Reese MD Work Phone: [facility] 2024 16:00-0400 SaO2% (BldA) [Mass fraction] 98 % Dr. Bernabe Reese MD Work Phone: [facility] 2024 16:00-0400 Systolic blood pressure 149 mm[Hg] Dr. Bernabe Reese MD Work Phone: 5(547)170-912091 [place] [address] 2024 15:17-0400 Body temperature 98.6 [degF] Dr. Bernabe Reese MD Work Phone: 5(754)643-834940 [place] [address] 2024 12:48-0400 Body mass index (BMI) [Ratio] 53.9 kg/m2 Dr. Bernabe Reese MD Work Phone: 5(008)884-858840 [place] [address] 2024 12:48-0400 Body weight [address] Bernabe Reese MD Work Phone: 9(393)231-052140 [place] [address] 2024 12:46-0400 Body height 172.[address] Bernabe Reese MD Work Phone: 2(762)011-029940 [place] [address] 2024 10:32-0400 Body mass index (BMI) [Ratio] 55.2 kg/m2 Dr. Bernabe Reese MD Work Phone: 0(176)506-600540 [place] [address] 2024 10:32-0400 Body temperature 97.6 [degF] Dr. Bernabe Reese MD Work Phone: 3(847)310-823140 [place] [address] 2024 10:32-0400 Diastolic blood pressure 71 mm[Hg] Dr. Bernabe Reese MD Work Phone: 4(884)640-256640 [place] [address] 2024 10:32-0400 Heart rate 80 /min Dr. Bernabe Reese MD Work Phone: 0(354)251-928940 [place] [address] 2024 10:32-0400 Respiratory rate 16 /min Dr. Bernabe Reese MD Work Phone: 4(141)045-659791 [place] [address] 2024 10:32-0400 Systolic blood pressure 160 mm[Hg] Dr. Bernabe Reese MD Work Phone: 4(847)391-844040 [place] [address] 10-02-2024 10:19-0400 Body mass index (BMI) [Ratio] 55.2 kg/m2 Dr. Bernabe Reese MD Work Phone: 1(847)927-199540 [place] [address] 10-02-2024 10:19-0400 Body temperature 96.5 [degF] Dr. Bernabe Reese MD Work Phone: [facility] 10-02-2024 10:19-0400 Diastolic blood pressure 75 mm[Hg] Dr. Bernabe Reese MD Work Phone: [facility] 10-02-2024 10:19-0400 Heart rate 78 /min Dr. Bernabe Reese MD Work Phone: [facility] 10-02-2024 10:19-0400 Respiratory rate 14 /min Dr. Bernabe Reese MD Work Phone: [facility] 10-02-2024 10:19-0400 Systolic blood pressure 168 mm[Hg] Dr. Bernabe Reese MD Work Phone: [facility] 09-25-2024 09:42-0400 Body height 172.[address] Bernabe Reese MD Work Phone: [facility] 09-25-2024 09:42-0400 Body weight 164.[address] Bernabe Reese MD Work Phone: [facility] 07-11-2023 06:19-0500 Body height 172.[address] Bernabe Reese Work Phone: [facility] 07-11-2023 06:19-0500 Body mass index (BMI) [Ratio] 58.5 kg/m2 Dr. Bernabe Reese Work Phone: [facility] 07-11-2023 06:19-0500 Body temperature 97.7 [degF] Dr. Bernabe Reese Work Phone: [facility] 07-11-2023 06:19-0500 Body weight 174.[address] Bernabe Reese Work Phone: [facility] 07-11-2023 06:19-0500 Diastolic blood pressure 77 mm[Hg] Dr. Bernabe Reese Work Phone: [facility] 07-11-2023 06:19-0500 Heart rate 59 /min Dr. Bernabe Reese Work Phone: [facility] 07-11-2023 06:19-0500 Respiratory rate 18 /min Dr. Bernabe Reese Work Phone: [facility] 07-11-2023 06:19-0500 SaO2% (BldA) [Mass fraction] 96 % Dr. Bernabe Reese Work Phone: [facility] 07-11-2023 06:19-0500 Systolic blood pressure 138 mm[Hg] Dr. Bernabe Reese Work Phone: [facility] 05-23-2023 13:14-0500 Body height 172.[address] Bernabe Reese Work Phone: [facility] 05-23-2023 13:14-0500 Body weight 168.[address] Bernabe Reese Work Phone: [facility] 05-23-2023 10:30-0500 SaO2% (BldA) [Mass fraction] 91 % Dr. Bernabe Reese Work Phone: [facility] 05-23-2023 09:00-0500 Body temperature 98.2 [degF] Dr. Bernabe Reese Work Phone: [facility] 05-23-2023 09:00-0500 Diastolic blood pressure 61 mm[Hg] Dr. Bernabe Reese Work Phone: [facility] 05-23-2023 09:00-0500 Heart rate 84 /min Dr. Bernabe Reese Work Phone: [facility] 05-23-2023 09:00-0500 Respiratory rate 18 /min Dr. Bernabe Reese Work Phone: [facility] 05-23-2023 09:00-0500 Systolic blood pressure 131 mm[Hg] Dr. Bernabe Reese Work Phone: [facility] 05-23-2023 05:05-0500 Inhaled oxygen concentration 21 % Dr. Bernabe Reese Work Phone: [facility] 05-21-2023 18:05-0500 Body mass index (BMI) [Ratio] 56.5 kg/m2 Dr. Bernabe Reese Work Phone: [facility] 03-24-2023 10:57-0400 Body height 172.[address] Bernabe Reese Work Phone: [facility] 03-24-2023 10:57-0400 Body mass index (BMI) [Ratio] 58.6 kg/m2 Dr. Bernabe Reese Work Phone: [facility] 03-24-2023 10:57-0400 Body weight 174.[address] Bernabe Reese Work Phone: [facility] 03-24-2023 10:57-0400 Diastolic blood pressure 84 mm[Hg] Dr. Bernabe Reese Work Phone: [facility] 03-24-2023 10:57-0400 Heart rate 84 /min Dr. Bernabe Reese Work Phone: [facility] 03-24-2023 10:57-0400 Respiratory rate 18 /min Dr. Bernabe Reese Work Phone: [facility] 03-24-2023 10:57-0400 Systolic blood pressure 129 mm[Hg] Dr. Bernabe Reese Work Phone: [facility] 12-03-2022 10:42-0400 Body temperature 97.8 [degF] Dr. Bernabe Reese Work Phone: [facility] 12-03-2022 10:42-0400 Diastolic blood pressure 84 mm[Hg] Dr. Bernabe Reese Work Phone: [facility] 12-03-2022 10:42-0400 Heart rate 91 /min Dr. Bernabe Reese Work Phone: [facility] 12-03-2022 10:42-0400 Respiratory rate 18 /min Dr. Bernabe Reese Work Phone: [facility] 12-03-2022 10:42-0400 SaO2% (BldA) [Mass fraction] 94 % Dr. Bernabe Reese Work Phone: [facility] 12-03-2022 10:42-0400 Systolic blood pressure 119 mm[Hg] Dr. Bernabe Reese Work Phone: [facility] 12-03-2022 05:58-0400 Body mass index (BMI) [Ratio] 59.8 kg/m2 Dr. Bernabe Reese Work Phone: [facility] 12-03-2022 05:58-0400 Body weight 178.[address] Bernabe Reese Work Phone: [facility] 11-30-2022 09:36-0400 Inhaled oxygen flow rate 2 L/min Dr. Bernabe Reese Work Phone: [facility] 11-30-2022 06:58-0400 Inhaled oxygen concentration 30 % Dr. Bernabe Reese Work Phone: [facility] 11-29-2022 14:56-0400 Body height 172.[address] Bernabe Reese Work Phone: [facility] 11-28-2022 07:32-0400 Body temperature 97.9 [degF] Dr. Bernabe Reese Work Phone: [facility] 11-28-2022 07:32-0400 Diastolic blood pressure 84 mm[Hg] Dr. Bernabe Reese Work Phone: [facility] 11-28-2022 07:32-0400 Heart rate 81 /min Dr. Bernabe Reese Work Phone: [facility] 11-28-2022 07:32-0400 Respiratory rate 16 /min Dr. Bernabe Reese Work Phone: [facility] 11-28-2022 07:32-0400 SaO2% (BldA) [Mass fraction] 98 % Dr. Bernabe Reese Work Phone: [facility] 11-28-2022 07:32-0400 Systolic blood pressure 138 mm[Hg] Dr. Bernabe Reese Work Phone: [facility] 11-28-2022 04:28-0400 Body mass index (BMI) [Ratio] 60.2 kg/m2 Dr. Bernabe Reese Work Phone: [facility] 11-28-2022 04:28-0400 Body weight 179.[address] Bernabe Reese Work Phone: [facility] 09-27-2022 09:10-0400 Body height 172.[address] Bernabe Reese Work Phone: [facility] 09-27-2022 09:10-0400 Body mass index (BMI) [Ratio] 59.3 kg/m2 Dr. Bernabe Reese Work Phone: [facility] 09-27-2022 09:10-0400 Body weight 176.[address] Bernabe Reese Work Phone: [facility] 09-27-2022 09:10-0400 Diastolic blood pressure 78 mm[Hg] Dr. Bernabe Reese Work Phone: [facility] 09-27-2022 09:10-0400 Heart rate 80 /min Dr. Brenabe Reese Work Phone: [facility] 09-27-2022 09:10-0400 Respiratory rate 18 /min Dr. Bernabe Reese Work Phone: [facility] 09-27-2022 09:10-0400 Systolic blood pressure 130 mm[Hg] Dr. Bernabe Reese Work Phone: [facility] 03-12-2022 09:55-0400 Body height 172.[address] Bernabe Reese Work Phone: [facility] Work Phone: 03-12-2022 09:55-0400 Body mass index (BMI) [Ratio] 60 kg/m2 Dr. Bernabe Reese Work Phone: [facility] Work Phone: 03-12-2022 09:55-0400 Body weight 179.[address] Bernabe Reese Work Phone: [facility] Work Phone: 03-12-2022 09:55-0400 Diastolic blood pressure 84 mm[Hg] Dr. Bernabe Reese Work Phone: [facility] Work Phone: 03-12-2022 09:55-0400 Heart rate 82 /min Dr. Bernabe Reese Work Phone: [facility] Work Phone: 03-12-2022 09:55-0400 Respiratory rate 18 /min Dr. Bernabe Reese Work Phone: [facility] Work Phone: 03-12-2022 09:55-0400 Systolic blood pressure 138 mm[Hg] Dr. Bernabe Reese Work Phone: [facility] Work Phone: 03-09-2022 13:48-0400 Body mass index (BMI) [Ratio] 60.6 kg/m2 Dr. Bernabe Reese Work Phone: [facility] Work Phone: 03-09-2022 13:48-0400 Body temperature 98.3 [degF] Dr. Bernabe Reese Work Phone: [facility] Work Phone: 03-09-2022 13:48-0400 Body weight 180.[address] Bernabe Reese Work Phone: [facility] Work Phone: 03-09-2022 13:48-0400 Diastolic blood pressure 86 mm[Hg] Dr. Bernabe Reese Work Phone: [facility] Work Phone: 03-09-2022 13:48-0400 Heart rate 101 /min Dr. Bernabe Reese Work Phone: [facility] Work Phone: 03-09-2022 13:48-0400 Respiratory rate 16 /min Dr. Bernabe Reese Work Phone: [facility] Work Phone: 03-09-2022 13:48-0400 SaO2% (BldA) [Mass fraction] 94 % Dr. Bernabe Reese Work Phone: [facility] Work Phone: 03-09-2022 13:48-0400 Systolic blood pressure 165 mm[Hg] Dr. Bernabe Reese Work Phone: [facility] Work Phone: Encounters Encounter Date Encounter Type Care Provider Facility Start: 01-02-2025 ambulatory Bernabe Telles y:[facility] Start: 01-01-2025 ambulatory Bernabe Telles y:[facility] Start: 12-18-2024 ambulatory Bernabe Telles y:[facility] Start: 12-11-2024 End: 12-17-[address] Bernabe Reese MD Work Phone: -[facility] Start: 12-11-2024 End: 12-17-2024 Dr. Canelo Cavazos MD -[facility] Work Phone: Start: 12-10-2024 ambulatory Bernabe Telles y:[facility] Start: 12-10-2024 Dr. Kelli Salgado MD -[facility] Start: 12-04-[address] Ramon vieira DP [facility] Work Phone: Start: 11-29-2024 End: 11-29-[address] Bernabe Reese MD Work Phone: [facility] Work Phone: Start: 11-29-2024 End: 11-29-2024 Patient encounter procedure Kelli Salgado MD -Cat Scan [facility] Work Phone: Start: 11-29-2024 End: 11-29-2024 Kelli Salgado MD -[facility] Work Phone: Start: 11-29-2024 End: 11-29-2024 ambulatory Bernabe Reese Facility:[facility] Start: 11-21-2024 ambulatory Bernabe Reese Facilit y:[facility] Start: 11-21-[address] Kelli Salgado MD [facility] Start: 11-21-2024 Dr. Kelli Salgado MD [facility] Start: 11-14-2024 ambulatory Bernabe Reese Facilit y:[facility] Start: 11-14-[address] Kelli Salgado MD [facility] Start: 11-14-2024 Dr. Kelli Salgado MD [facility] Start: 11-13-2024 End: 11-17-[address] Bernabe Reese MD Work Phone: [facility] Work Phone: Start: 11-13-2024 End: 11-17-[address] Ramon Garcia DPM -[facility] [place] Work Phone: Start: 11-13-2024 End: 11-17-2024 Dr. Ramon Garcia DPM -[facility] Work Phone: Start: 11-07-2024 ambulatory Bernabe Reese Facilit y:[facility] Start: 11-07-[address] Kelli Salgado MD [facility] Start: 11-07-2024 Dr. Kelli Salgado MD [facility] Start: 11-02-2024 ambulatory Bernabe Reese Facilit y:[facility] Start: 11-02-[address] Kelli Salgado MD [facility] Start: 11-02-2024 Dr. Kelli Salgado MD [facility] Start: 10-31-2024 ambulatory Bernabe Reese Facilit y:[facility] Start: 10-31-[address] Kelli Salgado MD -[facility] Start: 10-31-2024 Dr. Kelli Salgado MD -[facility] Start: 10-16-2024 End: 10-16-2024 ambulatory UNKNOWN PROVIDER Facility:[facility] Start: 10-16-2024 End: 10-30-2024 Evaluation and management of inpatient Kevin Soriano MD Work Phone: [id number] Start: 10-16-2024 Non-patient / Non-visit Dr. Haily Santos [facility] Work Phone: Start: 10-16-2024 Dr. Haily Santos [facility] Work Phone: Start: 10-15-2024 Non-patient / Non-visit Dr. Haily Santos [facility] Work Phone: Start: 10-15-2024 Dr. Haily Santos [facility] Work Phone: Start: 10-14-2024 Non-patient / Non-visit Dr. Ozzy Cabrera [facility] Work Phone: Start: 10-14-2024 Dr. Ozzy Cabrera [facility] Work Phone: Start: 10-13-2024 Non-patient / Non-visit Dr. Ozzy Cabrera [facility] Work Phone: Start: 10-13-2024 Dr. Ozzy Cabrera [facility] Work Phone: Start: 10-12-2024 Non-patient / Non-visit Dr. Ozzy Cabrera [facility] Work Phone: Start: 10-12-2024 Dr. Ozzy Cabrera [facility] Work Phone: Start: 10-12-2024 ambulatory Bernabe Reese Facilit y:[facility] Start: 10-11-2024 Non-patient / Non-visit Dr. Ozzy Cabrera [facility] Work Phone: Start: 10-11-2024 Dr. Ozzy Cabrera [facility] Work Phone: Start: 10-11-2024 End: 10-11-2024 ambulatory [facility] [place] [place]: 10-11-2024 End: 10-11-2024 Non-patient / Non-visit Dr. Chetan Cowan MD -[facility] Work Phone: Start: 10-11-2024 End: 10-11-2024 Dr. Chetan Cowan MD -[facility] Work Phone: Start: 10-10-2024 Non-patient / Non-visit Dr. Ozzy Cabrera [facility] Work Phone: Start: 10-10-2024 Dr. Ozzy Cabrera [facility] Work Phone: Start: 2024 End: 10-16-2024 Dr. Haily Santos DO -Intensive Care Unit Work Phone: Start: 2024 ambulatory [facility] [place] [place]: 2024 End: 10-16-2024 Evaluation and management of inpatient Dr. Chula Antunez MD -Medical Surgical 3 Work Phone: Start: 2024 End: 10-17-2024 ambulatory [facility] Facility:[facility] Start: 2024 End: 10-17-[address] Ramon Garcia DPM -[facility] Work Phone: Start: [address] Ramon vieira [facility]Joyce -[facility] Work Phone: Start: 2024 End: 10-17-2024 Dr. Ramon Garcia DPM -Wound Healing [facility] Work Phone: Start: 10-02-[address] Ramon vieira [facility] -[facility] Work Phone: Start: 09-28-2024 End: 09-28-[address] Bernabe Reese MD Work Phone: [facility] Work Phone: Start: 09-28-2024 End: 09-28-[address] Ramon Garcia DPJoyce -Laboratory, [place] Work Phone: Start: 09-28-2024 End: 09-28-2024 Dr. Ramon Garcia DPM -[facility] Work Phone: Start: 09-28-2024 End: 09-28-2024 ambulatory Bernabe Reese Facility:[facility] Start: 08-22-2024 End: 08-22-[address] Bernabe Reese MD Work Phone: [facility] Work Phone: Start: 08-22-2024 End: 08-22-[address] Ramon Garcia DPM -Laboratory, Spec[place] Work Phone: Start: 08-22-2024 End: 08-22-2024 Dr. Ramon Garcia DPM -Laboratory Speci men Work Phone: Start: 08-22-2024 End: 08-22-2024 ambulatory Bernabe Reese Facility:[facility] Start: 08-15-2024 ambulatory Bernabe Reese Facilit y:[facility] Start: 08-02-2024 End: 08-02-[address] Bernabe Reese MD -Laboratory, [facility] Start: 08-02-2024 End: 08-02-2024 ambulatory Bernabe Reese Facility:[facility] Start: 06-19-2024 End: 06-19-[address] Bernabe Reese MD -Laboratory, [facility] Start: 06-19-2024 End: 06-19-2024 ambulatory Bernabe Reese Facility:[facility] Start: 03-08-2024 ambulatory Bernabe Reese Facilit y:[facility] Start: 02-13-2024 End: 02-13-2024 ambulatory Bernabe Reese Facility:[facility] Start: 09-09-2023 End: 09-09-[address] Bernabe Reese Work Phone: [facility] Work Phone: Start: 09-09-2023 End: 09-09-[address] Bernabe Reese Work Phone: [facility] Start: 07-11-2023 End: 07-11-[address] Bernabe Reese Work Phone: [facility] Work Phone: Start: 07-11-2023 End: 07-11-[address] Bernabe Reese Work Phone: [facility] Work Phone: Start: 05-23-2023 Non-patient / Non-visit Dr. Bernabe Reese Work Phone: [facility] Work Phone: Start: 05-22-2023 Non-patient / Non-visit Dr. Bernabe Reese Work Phone: [facility] Work Phone: Start: 05-21-2023 End: 05-23-2023 Evaluation and management of inpatient Dr. Bernabe Reese Work Phone: [facility]-Medical Surgical 3 Work Phone: Start: 04-15-2023 End: 04-15-[address] Bernabe Reese Work Phone: [facility] Work Phone: Start: 04-15-2023 End: 04-15-[address] Bernabe Reese Work Phone: [facility] Start: 03-24-2023 End: 03-24-[address] Bernabe Reese Work Phone: [facility] Work Phone: Start: 12-03-2022 Non-patient / Non-visit Dr. Bernabe Reese Work Phone: [facility] Start: 12-02-2022 Non-patient / Non-visit Dr. Bernabe Reese Work Phone: [facility] Start: 12-01-2022 Non-patient / Non-visit Dr. Bernabe Reese Work Phone: [facility] Start: 11-30-2022 Non-patient / Non-visit Dr. Bernabe Reese Work Phone: [facility] Start: 11-29-2022 Non-patient / Non-visit Dr. Bernabe Reese Work Phone: [facility] Start: 11-29-2022 Non-patient / Non-visit Dr. Bernabe Reese Work Phone: [facility] Start: 11-28-2022 End: 12-03-2022 Evaluation and management of inpatient Dr. Bernabe Reese Work Phone: [facility]-Progressive Care Unit Start: 11-28-2022 End: 11-28-2022 Emergency department patient visit Dr. Bernabe Reese Work Phone: [facility]-Emergency Department Start: 11-01-2022 End: 11-01-[address] Bernabe Reese Work Phone: [facility] Start: 10-22-2022 End: 10-22-[address] Bernabe Reese Work Phone: [facility] Work Phone: Start: 10-22-2022 End: 10-22-[address] Bernabe Reese Work Phone: [facility] Start: 09-27-2022 End: 09-27-[address] Bernabe Reese Work Phone: [facility] Start: 08-27-2022 Patient encounter procedure [facility] Provider [facility] Start: 07-15-2022 End: 07-15-2022 ambulatory [facility] Work Phone: Start: 07-15-2022 End: 07-15-[address] [facility] Start: 06-16-2022 End: 06-16-[address] Bernabe Reese Work Phone: [facility] Work Phone: Start: 06-16-2022 End: 06-16-[address] Bernabe Reese Work Phone: [facility] Start: 03-12-2022 End: 03-12-[address] Bernabe Reese Work Phone: [facility] Start: 03-09-2022 End: 03-09-[address] Bernabe Reese Work Phone: [facility] Start: 01-19-2022 End: 01-19-[address] [facility] Start: 10-26-2021 End: 10-26-2021 Patient encounter procedure [facility] Start: 09-11-2021 End: 09-11-[address] [facility] Start: 02-10-2018 End: 02-10-2018 [facility] Start: 11-24-2017 Ambulatory Dillan Telles y:[facility] Start: 04-05-2017 End: 04-07-2017 Ambulatory MACHO JUAREZ [facility] Start: 03-17-2017 End: 03-17-2017 Ambulatory MACHO JUAREZ [facility] Start: 03-16-2017 Ambulatory MACHO JUAREZ [facility] Start: 03-16-2017 End: 04-07-2017 Ambulatory MACHO JUAREZ [facility] Procedures Date Procedure Procedure Detail Performing Clinician [...] positive expiratory pressure (flutter) physiotherapy Francie Grier STE[employer]BUTION SUPERVISOR-MEDICAL RECEPTION SPECIALIST Work Phone: Start: 10-29-2024 Glucose measurement, blood Elizabeth Bettencourt MD Work Phone: Start: 10-29-2024 Glucose measurement, blood Elizabeth Bettencourt MD Work Phone: Start: 10-29-2024 Glucose measurement, blood Elizabeth Bettencourt MD Work Phone: Start: 10-29-2024 Glucose measurement, blood Elizabeth Bettencourt MD Work Phone: Start: 10-29-2024 Creatinine blood Roz Alejandre [employer] DIST[employer]BUTION SUPERVISOR-MEDICAL RECEPTION SPECIALIST Work Phone: Start: 10-29-2024 Oscillating positive expiratory pressure (flutter) physiotherapy Francie Grier STE[employer] DISTRIBUTION SUPERVISOR-MEDICAL RECEPTION SPECIALIST Work Phone: Start: 10-28-2024 Glucose measurement, blood [...] Work Phone: Start: 10-26-2024 Creatinine blood Braden Claudia Irby DO Work Phone: Start: 10-26-2024 Ct head/brain w/o co ntrast material Roz Alejandre STE[employer] DISTRIBUTION SUPERVISOR-MEDICAL RECEPTION SPECIALIST Work Phone: Start: 10-26-2024 Oscillating positive expiratory pressure (flutter) physiotherapy Francie Grier STEAM DISTRIBUTION SUPERVISOR-MEDICAL RECEPTION SPECIALIST Work Phone: Start: 10-25-2024 Glucose measurement, blood Elizabeth Bettencourt MD Work Phone: Start: 10-25-2024 Glucose measurement, blood Elizabeth Bettencourt MD Work Phone: Start: 10-25-2024 Glucose measurement, blood Elizabeth Bettencourt MD Work Phone: Start: 10-25-2024 Glucose measurement, blood Elizabeth Bettencourt MD Work Phone: Start: 10-25-2024 Glucose measurement, blood Elizabeth Bettencourt MD Work Phone: Start: 10-25-2024 Creatinine blood Braden Claudia Irby DO Work Phone: Start: 10-25-2024 Oscillating positive expiratory pressure (flutter) physiotherapy Francie Grier STEAM DISTRIBUTION SUPERVISOR-[facility] Work Phone: Start: 10-24-2024 Glucose measurement, blood Elizabeth Bettencourt MD Work Phone: Start: 10-24-2024 Creatinine blood Valerie er S Mgean STEAM DISTRIBUTION SUPERVISOR-[facility] Work Phone: Start: 10-24-2024 Radiologic exam ches t single view Randheer S Megan STEAM DISTRIBUTION SUPERVISOR-[facility] Work Phone: Start: 10-24-2024 Glucose measurement, blood Elizabeth Bettencourt MD Work Phone: Start: 10-24-2024 Glucose measurement, blood Elizabeth Bettencourt MD Work Phone: Start: 10-24-2024 Glucose measurement, blood Elizabeth Bettencourt MD Work Phone: Start: 10-24-2024 Oscillating positive expiratory pressure (flutter) physiotherapy Francie Grier STEAM DISTRIBUTION SUPERVISOR-[facility] Work Phone: Start: 10-23-2024 Creatinine blood Braden S Riby DO Work Phone: Start: 10-23-2024 Drug screen quantita tive vancomycin Dayami E Pressburger [facility] Start: 10-23-2024 Glucose measurement, blood Elizabeth Bettencourt MD Work Phone: Start: 10-23-2024 Glucose measurement, blood Elizabeth Bettencourt MD Work Phone: Start: 10-23-2024 Glucose measurement, blood Elizabeth Bettencourt MD Work Phone: Start: 10-23-2024 Glucose measurement, blood Elizabeth Bettencourt MD Work Phone: Start: 10-23-2024 Oscillating positive expiratory pressure (flutter) physiotherapy Francie Grier STEAM DISTRIBUTION SUPERVISOR-MEDICAL RECEPTION SPECIALIST Work Phone: Start: 10-23-2024 Creatinine blood Braden [...] positive expiratory pressure (flutter) physiotherapy Francie Grier STE[employer] DISTRIBUTION SUPERVISOR-[employer]ICAL RECEPTION SPECIALIST Work Phone: Start: 10-22-2024 Calcium ionized Francie Grier STE[employer] DISTRIBUTION SUPERVISOR-[employer]ICAL RECEPTION SPECIALIST Work Phone: Start: 10-21-2024 Drug screen quantita tive vancomycin Maryann Douglas [facility] Start: 10-21-2024 Glucose measurement, blood Dillan Guzman MD Work Phone: Start: 10-21-2024 Heparin assay Maryann farah [facility] Start: 10-21-2024 Mri brain brain stem w/o contrast material Trey Morse PA-C Work Phone: Start: 10-21-2024 Glucose measurement, blood Dillan Guzman MD Work Phone: Start: 10-21-2024 Radiologic exam ches t single view Kearajuarez Castillo [employer] DISTRIBUTION SUPERVISOR-MEDICAL RECEPTION SPECIALIST Work Phone: Start: 10-21-2024 End: 10-21-2024 Glucose measurement, blood Dillan Guzman MD Work Phone: Start: 10-21-2024 Oscillating positive expiratory pressure (flutter) physiotherapy Francie Grier STEAM DISTRIBUTION SUPERVISOR-[employer]ICAL RECEPTION SPECIALIST Work Phone: Start: 10-20-2024 End: 10-21-2024 Calcium ionized Francie Grier STEAM DISTRIBUTION SUPERVISOR-MEDICAL RECEPTION SPECIALIST Work Phone: Start: 10-20-2024 Glucose measurement, blood Dillan Guzman MD Work Phone: Start: 10-20-2024 Glucose measurement, blood Dillan Guzman MD Work Phone: Start: 10-20-2024 Radiologic exam ches t single view Trey Morse PA-C Work Phone: Start: 10-20-2024 Glucose measurement, blood Dillan Guzman MD Work Phone: Start: 10-20-2024 Drug screen quantita tive vancomycin Jackelinlupillomagalie Douglas [facility] Start: 10-20-2024 Glucose measurement, blood Dillan Guzman MD Work Phone: Start: 10-20-2024 Ct head/brain w/o co ntrast material Chiquita BAKERC Work Phone: Start: 10-20-2024 Oscillating positive expiratory pressure (flutter) physiotherapy Francie Grier STEAM DISTRIBUTION SUPERVISOR-MEDICAL RECEPTION SPECIALIST Work Phone: Start: 10-20-2024 Calcium ionized Francie Grier STEAM DISTRIBUTION SUPERVISOR-MEDICAL RECEPTION SPECIALIST Work Phone: Start: 10-19-2024 Glucose measurement, blood [...] Radiologic exam ches t single view Jenn Brunilda Redman DO Start: 10-19-2024 Gases blood ph direc t everardo xcpt pulse oximitry Jenn Redman DO Start: 10-19-2024 Glucose measurement, blood Dillan Guzman MD Work Phone: Start: 10-19-2024 Oscillating positive expiratory pressure (flutter) physiotherapy Francie Grier STEAM DISTRIBUTION SUPERVISOR-MEDICAL RECEPTION SPECIALIST Work Phone: Start: 10-19-2024 Calcium ionized Francie Grier STEAM DISTRIBUTION SUPERVISOR-MEDICAL RECEPTION SPECIALIST Work Phone: Start: 10-18-2024 Glucose measurement, blood Dillan Guzman MD Work Phone: Start: 10-18-2024 Radex foot complete minimum 3 views Shweta Chan PA-C Work Phone: Start: 10-18-2024 Glucose measurement, blood Dillan Guzman MD Work Phone: Start: 10-18-2024 Drug screen quantita tive vancomycin Sangita Valenzuela [facility] Start: 10-18-2024 Blood count platelet automated Chiquita Humphrey PA-C Work Phone: Start: 10-18-2024 Glucose measurement, blood Dillan Guzman MD Work Phone: Start: 10-18-2024 Iadna s aureus ampli fied probe tq Amelia L Ciupak PA-C Start: 10-18-2024 Radiologic exam ches t single view Shweta Pizarro Farson PA-C Work Phone: Start: 10-18-2024 Ct head/brain w/o co ntrast material Shweta Pizarro Farson PA-C Work Phone: Start: 10-18-2024 Sodium serum plasma or whole blood Shweta Pizarro Farson PA-C Work Phone: Start: 10-18-2024 Glucose measurement, blood Dillan Guzman MD Work Phone: Start: 10-18-2024 Gases blood ph direc t everardo xcpt pulse oximitry Jenn Redman DO Start: 10-18-2024 Electrolyte panel Victo roshni L Kam PA-C Work Phone: Start: 10-18-2024 Oscillating positive expiratory pressure (flutter) physiotherapy Francie Pizarro Marvel STEAM DISTRIBUTION SUPERVISOR-MEDICAL RECEPTION SPECIALIST Work Phone: Start: 10-18-2024 Physiotherapy of chest Francie Pizarro Marvel STEAM DISTRIBUTION SUPERVISOR-MEDICAL RECEPTION SPECIALIST Work Phone: Start: 10-18-2024 Glucose measurement, blood Dillan Guzman MD Work Phone: Start: 10-18-2024 Calcium ionized Francie Lopezdean STEAM DISTRIBUTION SUPERVISOR-MEDICAL RECEPTION SPECIALIST Work Phone: Start: 10-17-2024 Glucose measurement, blood Dillan Guzman MD Work Phone: Start: 10-17-2024 Sodium serum plasma or whole blood Shweta Pizarro Jacey PA-C Work Phone: Start: 10-17-2024 Creatinine blood Kelli kaylee Pizarro Jacey PA-C Work Phone: Start: 10-17-2024 Electrolyte panel Victo roshni L Kam PA-C Work Phone: Start: 10-17-2024 Gases blood ph direc t everardo xcpt pulse oximitry Chiquita Barreto Kam PA-C Work Phone: Start: 10-17-2024 Radiologic exam ches t single view Chiquita Barreto Kam HIGGINS Work Phone: Start: 10-17-2024 Glucose measurement, blood Dillan Guzman MD Work Phone: Start: 10-17-2024 Transthoracic echocardiography Kristen Ramon MD Work Phone: Start: 10-17-2024 Glucose measurement, blood Dillan Guzman MD Work Phone: Start: 10-17-2024 Drug screen quantita tive vancomycin Miriam Denson MD Work Phone: Start: 10-17-2024 Ct head/brain w/o co ntrast material Miriam Denson MD Work Phone: Start: 10-17-2024 EXTRA MICRO Francie dukes STE[employer] DISTRIBUTION SUPERVISOR-MEDICAL RECEPTION SPECIALIST Work Phone: Start: 10-17-2024 URINALYSIS REFLEX TO CULTURE Francie Grier STEAM DISTRIBUTION SUPERVISOR-MEDICAL RECEPTION SPECIALIST Work Phone: Start: 10-17-2024 Assay of lactate Francie Grier STEAM DISTRIBUTION SUPERVISOR-MEDICAL RECEPTION SPECIALIST Work Phone: Start: 10-17-2024 End: 10-17-2024 Culture bacterial blood aerobic w/id isolates Francie Grier STEAM DISTRIBUTION SUPERVISOR-MEDICAL RECEPTION SPECIALIST Work Phone: Start: 10-17-2024 Oscillating positive expiratory pressure (flutter) physiotherapy Francie Grier STEAM DISTRIBUTION SUPERVISOR-MEDICAL RECEPTION SPECIALIST Work Phone: Start: 10-17-2024 Physiotherapy of chest Francie Grier STEAM DISTRIBUTION SUPERVISOR-MEDICAL RECEPTION SPECIALIST Work Phone: Start: 10-16-2024 Physiotherapy of chest Francie Grier STEAM DISTRIBUTION SUPERVISOR-MEDICAL RECEPTION SPECIALIST Work Phone: Start: 10-16-2024 Radiologic exam ches t single view Francie Grier STEAM DISTRIBUTION SUPERVISOR-MEDICAL RECEPTION SPECIALIST Work Phone: Start: 10-16-2024 Artl cathj/cannulj mntr/transfusion spx prq Francie Grier STEAM DISTRIBUTION SUPERVISOR-MEDICAL RECEPTION SPECIALIST Work Phone: Start: 10-16-2024 Glucose measurement, blood Dillan Guzman MD Work Phone: Start: 10-16-2024 Calcium ionized Francie Grier STEAM DISTRIBUTION SUPERVISOR-MEDICAL RECEPTION SPECIALIST Work Phone: Start: 10-16-2024 Lipid panel Francie Pizarro Sara dukes STEAM DISTRIBUTION SUPERVISOR-MEDICAL RECEPTION SPECIALIST Work Phone: Start: 10-16-2024 Ecg routine ecg w/le ast 12 lds trcg only w/o i&r Francie Pizarro Marvel STEAM DISTRIBUTION SUPERVISOR-MEDICAL RECEPTION SPECIALIST Work Phone: Start: 10-16-2024 EXTRA MICRO Kristen [...] Work Phone: Start: 10-16-2024 Antibody screen DILLAN PFEIFFER KATHLEEN Comment on above: Performed By: #### X M #### [facility] (DEFAULT) [address] [address] Start: 10-16-2024 CBC AND ELECTRONIC DIFF Miriam [...] Work Phone: Start: 10-15-2024 Blood count smear rscp w/mnl difrntl wbc [...] med using the TPSA assay method for themenon chemistry system. Values obtained with differentassay methods [...] lic panel VESELIN ENRRIQUE Start: 02-10-2018 TROPONIN ALBERTELIN DI MITROV Start: 02-10-2018 Urnls dip stick/tabl et rgnt auto w/o microscopy [facility] Bacteria identified in Blood by Culture Dr. 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 Bernabe subramanian Work Phone: Viral antigen assay Dr. Bernabe Reese Work Phone: Plan of Treatment Date Care Activity Detail Author Start: 10-16-2029 Lipid panel [facility] Start: 10-29-2025 Finding of potassium level (finding) [facility] Start: 02-18-2025 Influenza vaccination [facility] Start: 11-06-2024 End: 10-28-2025 CT Head WO contrast [facility] Start: 10-16-2024 Patient discharge [facility] Start: 10-16-2024 Bedrest [facility] Start: 10-16-2024 Cardiac monitoring [facility] Start: 10-16-2024 Catheterization of vein [facility] Start: 10-16-2024 Elevation of head of bed [facility] Start: 10-16-2024 Exercises [facility] Start: 10-16-2024 Notification of physician [facility] Start: 10-16-2024 End: 10-16-2024 [facility] Start: 10-16-2024 Vital signs measurements [facility] Start: 10-16-2024 Continuous pulse oximetry [facility] Start: 10-16-2024 Oxygen therapy [facility] Start: 10-16-2024 End: 10-16-2024 Telemedicine consultation with patient [facility] Start: 10-16-2024 End: 10-16-2024 Tobacco use cessation education [facility] Start: 10-16-2024 [facility] Start: 10-12-2024 Consultation [facility] Start: 10-11-2024 Incentive spirometry [facility] Start: 10-11-2024 Referral to service [facility] Start: 10-11-2024 [facility] Start: 10-10-2024 [facility] Start: 10-10-2024 Wound care [facility] Start: 2024 Dual pressure spontaneous ventilation support [facility] Start: 2024 Application of intermittent pneumatic compression device [facility] Start: 2024 Assessment of risk of venous thromboembolism [facility] Start: 2024 Care regimes management [facility] Start: 2024 Consultation for treatment [facility] Start: 2024 Insertion of catheter into peripheral vein [facility] Start: 2024 Notification of physician [facility] Start: 2024 Providing care according to standard [facility] Start: 2024 Provision of activity privileges [facility] Start: 2024 Referral to occupational therapist [facility] Start: 2024 Referral to in flight refueling manager [facility] Start: 2024 Referral to service [facility] Start: 2024 End: 2024 [facility] Start: 2024 Following clinical pathway protocol [facility] Start: 2024 Verification routine [facility] Start: 2024 Admission procedure [facility] Start: 2024 Hospital admission, emergency, from emergency room, medical nature [facility] Start: 2024 Source specific culture [facility] Start: 2024 Anaerobic Culture Anaerobic Culture [facility] Start: 2024 Bacteria identified in Blood by Culture Blood Culture [facility] Start: 2024 Microscopic observation [Identifier] in Unspecified specimen by Gram stain [facility] Start: 2024 Wound Culture Wound Culture [facility] Start: 2024 End: 2024 [facility] Start: 2024 Inhalation therapy procedure [facility] Start: 2024 Patient referral to dietitian [facility] Start: 05-24-2023 Blood chemistry [facility] Start: 05-23-2023 Patient discharge [facility] Start: 05-23-2023 Patient referral to dietitian [facility] Start: 05-21-2023 Referral to in flight refueling manager [facility] Start: 05-21-2023 Continuous positive airway pressure ventilation treatment [facility] Start: 05-21-2023 Following clinical pathway protocol [facility] Start: 05-21-2023 Ambulation without limitation [facility] Start: 05-21-2023 Assessment of risk of venous thromboembolism [facility] Start: 05-21-2023 Care regimes management [facility] Start: 05-21-2023 Consultation [facility] Start: 05-21-2023 Incentive spirometry [facility] Start: 05-21-2023 Insertion of catheter into peripheral vein [facility] Start: 05-21-2023 Notification of physician [facility] Start: 05-21-2023 Oxygen therapy [facility] Start: 05-21-2023 Providing care according to standard [facility] Start: 05-21-2023 Referral to occupational therapist [facility] Start: 05-21-2023 Referral to service [facility] Start: 05-21-2023 [facility] Start: 05-21-2023 Blood culture [facility] Start: 05-21-2023 Verification routine [facility] Start: 05-21-2023 Admission procedure [facility] Start: 05-21-2023 Bacteria identified in Blood by Culture Blood Culture [facility] Start: 05-21-2023 Blood culture [facility] Start: 12-03-2022 Patient discharge [facility] Start: 12-02-2022 [facility] Start: 11-30-2022 End: 12-01-2022 [facility] Start: 11-30-2022 Care planning and problem solving actions [facility] Start: 11-30-2022 End: 11-30-2022 Blood culture [facility] Start: 11-29-2022 Consultation [facility] Start: 11-29-2022 Care planning and problem solving actions [facility] Start: 11-29-2022 [facility] Start: 11-28-2022 End: 11-29-2022 [facility] Start: 11-28-2022 Care planning and problem solving actions [facility] Start: 11-28-2022 Continuous pulse oximetry [facility] Start: 11-28-2022 Following clinical pathway protocol [facility] Start: 11-28-2022 Assessment of risk of venous thromboembolism [facility] Start: 11-28-2022 Care regimes management [facility] Start: 11-28-2022 Insertion of catheter into peripheral vein [facility] Start: 11-28-2022 Measuring intake and output [facility] Start: 11-28-2022 Oxygen therapy [facility] Start: 11-28-2022 Providing care according to standard [facility] Start: 11-28-2022 Provision of activity privileges [facility] Start: 11-28-2022 Referral to occupational therapist [facility] Start: 11-28-2022 Referral to service [facility] Start: 11-28-2022 Admission procedure [facility] Start: 11-28-2022 Dual pressure spontaneous ventilation support [facility] Start: 11-28-2022 Patient referral to dietitian [facility] Start: 11-28-2022 [facility] Start: 06-20-2022 ADVANCE DIRECTIVE DISCUSSION ADVANCE DIRECTIVE DISCUSSION [facility] Start: 06-20-2022 DEPRESSION ASSESSMENT DEPRESSION ASSESSMENT [facility] Start: 02-18-2022 Influenza vaccination INFLUENZA (#1) [facility] Start: 10-10-2019 PNEUMOCOCCAL: 65+ (1 - PCV) PNEUMOCOCCAL: 65+ (1 - PCV) [facility] Start: 2014 [facility] Start: 2009 PROSTATE CANCER SCREENING DISCUSSION PROSTATE CANCER SCREENING DISCUSSION [facility] Start: 2004 SHINGRIX VACCINE (1 of 2) SHINGRIX VACCINE (1 of 2) [facility] Start: 10-10-1999 COLOGUARD (FIT-DNA) COLOGUARD (FIT-DNA) [facility] Start: 10-10-1999 Colonoscopy COLONOSCOPY [facility] Start: 10-10-1999 COLORECTAL CANCER SCREENING COLORECTAL CANCER SCREENING [facility] Start: 10-10-[address] COLONOGRAPHY [facility] Start: 10-10-1999 FECAL OCCULT BLOOD FECAL OCCULT BLOOD [facility] Start: 10-10-1999 Screening for malignant neoplasm of colon [facility] Start: 10-10-1999 SIGMOIDOSCOPY SIGMOIDOSCOPY [facility] Start: 1973 Pneumococcal vaccination [facility] Start: 1973 Third diphtheria, tetanus and acellular pertussis (DTaP) vaccination [facility] Start: 1973 Urine microalbumin profile DTAP,TDAP,TD (1 - Tdap) [facility] Start: 1973 [facility] Start: 1972 Hepatitis B surface antibody level LDL CHOLESTEROL [facility] Start: 1972 HEPATITIS C SCREENING HEPATITIS C SCREENING [facility] Start: 1964 3 comp foot exam completed DIABETIC FOOT EXAM [facility] Start: 1964 Hepatitis B screening URINE ALBUMIN:CREATININE RATIO [facility] Start: 1964 Hepatitis C antibody, confirmatory test DILATED RETINAL EXAM [facility] Start: 10-10-1959 Hemoglobin A1c/Hemoglobin.total in Blood HBA1C [facility] Start: 10-10-1959 [facility] Start: 04-10-1955 COVID-19 VACCINE (#1) COVID-19 VACCINE (#1) [facility] Start: 1954 ABDOMINAL AORTIC ANEURYSM SCREENING ABDOMINAL AORTIC ANEURYSM SCREENING [facility] Start: 1954 Hepatitis C screening [facility] Start: 1954 Tetanus vaccination [facility] Bacteria identified in Blood by Culture Blood Culture [facility] Bacteria identified in Unspecified specimen by Anaerobe culture [facility] Patient Education [facility] Work Phone: Patient referral [facility] Work Phone: End: 10-24-2024 Standard ECG [facility] End: 10-16-2024 VANCOMYCIN LEVEL, TROUGH (PRE DRUG LEVEL) [facility] Wound microscopy, cu lture and sensitivities [facility] Payers Date Payer Category Payer Medicare (Managed Care) 1.2. [id number] 2024 Medicare [id number] 2024 Self-pay [id number] 2023 Medicare [id number] 2019 Unknown [id number] 2019 Private Health Insurance REGINALDOMAYELA HARRISON PPO [id number] 2019-Present [phone] [address] [place] [address] PPO [id number] 2014 Private Health Insurance [id number] 1955 Unknown [id number] 2.16.840.1.855804.3.579.2. 732 1955 Unknown [id number] 2.16.840.1.546042.3.579.2. 594 Unknown [id number] 2.16.840.1.051375.3.579.2. 462 Unknown [id number] 2.16.840.1.623490.3.579.2. 462 Unknown [id number] 2.16.840.1.743990.3.579.2. 462 Unknown [id number] 2.16.840.1.595260.3.579.2. 462 Unknown [id number] 2.16.840.1.776931.3.579.2. 462 Unknown [id number] 2.16.840.1.604787.3.579.2. 462 Unknown [id number] 2.16.840.1.104792.3.579.2. 462 Unknown [id number] 2.16.840.1.226096.3.579.2. 462 Unknown [id number] 2.16.840.1.303840.3.579.2. 462 Unknown [id number] 2.16.840.1.612747.3.579.2. 462 Unknown [id number] 2.16.840.1.738358.3.579.2. 462 Unknown [id number] 2.16.840.1.934329.3.579.2. 462 Unknown [id number] 2.16840.1.682598.3.579.2. 462 Unknown [id number] 2.840.1.813683.3.579.2. 462 Unknown [id number] 2.16840.1.276630.3.579.2. 462 Unknown [id number] 2.840.1.550310.3.579.2. 462 Unknown [id number] 2.16840.1.064632.3.579.2. 462 Unknown [id number] 2.16840.1.530953.3.579.2. 462 Unknown [id number] 2.840.1.196008.3.579.2. 462 Unknown [id number] 2.16840.1.733463.3.579.2. 462 Unknown [id number] 2.16840.1.198724.3.579.2. 462 Unknown [id number] 2.16840.1.589408.3.579.2. 462 Unknown [id number] 2.16.840.1.143089.3.579.2. 462 Unknown [id number] 2.16840.1.093341.3.579.2. 462 Unknown [id number] 2.16.840.1.773913.3.579.2. 462 Unknown [id number] 2.16840.1.096108.3.579.2. 462 Unknown [id number] 2.16.840.1.252145.3.579.2. 462 Unknown [id number] 2.16840.1.601540.3.579.2. 462 Unknown [id number] 2.16840.1.141302.3.579.2. 462 Unknown [id number] 2.840.1.201603.3.579.2. 462 Unknown [id number] 2.840.1.159736.3.579.2. 462 Social History Date Type Detail Facility Start: 05-13-2021 End: 07-11-2023 Tobacco smoking status MAIS Unknown if ever smoked [facility] Start: 09-17-2014 None [facility] Start: 10-29-2014 With Family [facility] Start: 10-01-2020 Non-smoker [facility] Start: 1955 Sex Assigned At Male [facility] Start: 03-16-2017 End: 07-11-2023 Tobacco smoking status NHIS Ex-smoker [facility] History of tobacco use Current smoker [facility] History of tobacco use Cigarette Smoker [facility] Start: 03-16-2017 End: 10-24-2024 Tobacco use and exposure Smokeless tobacco non-user [facility] Start: 04-05-2017 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 (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) [facility] Start: 03-16-2017 Tobacco Comment smoked in teen years [facility] Start: 1955 Sex Assigned At Not on file [facility] Start: 09-01-2024 End: 10-16-2024 Sex Male (finding) [facility] Start: 09-25-2024 End: 2024 Tobacco smoking status NHIS Never smoked tobacco (finding) [facility] Start: 10-17-2024 End: 10-24-2024 History of Social function [facility] Start: 10-17-2024 End: 10-24-2024 Tobacco use panel [facility] Medical Equipment Procedure Code Equipment Code Equipment Origin al Text Equipment Identifier Dates External fixation, tibia ([id number]) ()[id number] FDA Start: 10-15-2024 External fixation, tibia ([id number]) ()[id number] FDA Start: 10-15-2024 External fixation, tibia ([id number]) ()[id number] FDA Start: 10-15-2024 External fixation, tibia ([id number]) ()[id number] FDA Start: 10-15-2024 External fixation, tibia ([id number]) ()[id number] FDA Start: 10-15-2024 External fixation, tibia ()[id number] FDA Start: 10-15-2024 External fixation, tibia ([id number]) ()[id number] FDA Start: 10-15-2024 External fixation, tibia ([id number]) ()[id number] FDA Start: 10-15-2024 External fixation, tibia ()[id number] FDA Start: 10-15-2024 External fixation, tibia ()[id number] FDA Start: 10-15-2024 Debridement, wound DRESSING,SURG ICEL [...] do you have serious difficulty hearing No [facility] 10-24-2024 Are you blind, or do you have serious difficulty seeing, even when wearing glasses No [facility] 10-24-2024 Do you have serious difficulty walking or climbing stairs Yes [facility] 10-24-2024 Do you have difficul ty dressing or bathing Yes [facility] 10-24-2024 Because of a physica l, mental, or emotional condition, do you have difficulty doing errands alone such as visiting a physician's office or shopping Yes [facility] 10-16-2024 Functional status Unable to Assess;Post O p [facility] Work Phone: 10-16-2024 Functional status Bedrest [facility] Work Phone: 05-23-2023 Functional status Chair [facility] Work Phone: 12-03-2022 Functional status Ambulates [facility] Work Phone: Mental Status Date Assessment Result Facility 10-24-2024 Because of a physica l, mental, or emotional condition, do you have serious difficulty concentrating, remembering, or making decisions Yes [facility] 10-16-2024 Cognitive function Voice/Name [facility] Work Phone: 05-23-2023 Cognitive function Voice/Name [facility] Work Phone: 05-22-2023 Cognitive function Appropriate;C ooperativ e [facility] Work Phone: 12-03-2022 Cognitive function Voice/Name [facility] Work Phone: Clinical Notes 11-28-2022 to 12-11-2024 Note Date & Type Note Facility 12-11-2024 Progress note Note Date/Time December 11, 2024 10:48am [facility] [address] [place] [address] Progress Note - Wound Care 12/11/24 1046 MR#: [id number] Acct: [id number] Name: LANI ZARAGOZA Rep #:[id number] : 1955 69 From: Ramon Garcia DPM PCP: Dr. Bernabe Reese MD Status: G [facility] Location: History of Present Illness Date of [...] 12/11/24 10:06 12/11/24 10:06 12/11/24 10:06 12/11/24 10:12/11/24 10:06 Oxygen Delivery Method Room Air Weight: [...] Start: 11/20/24 10:16 Freq: Status: Active Protocol: WC.LOWJOJOT Activity Type Activity Date Activity User E-sign Co-sign Detail Recorded Client Recorded Date Recorded By Document 11/20/24 10:17 KW [id number] 11/20/24 10:35 KW Document 11/27/24 09:35 KW [id number] 11/27/24 09:41 KW Document 12/04/24 10:12 KW [id number] 12/04/24 10:32 KW Document 12/11/24 10:06 KW [id number] 12/11/24 10:28 KW 11/20/24 11/27/24 12/04/24 10:17 09:35 10:12 - Today's Visit Information Type of service Follow-up Visit Follow-up Visit Follow-up Visit (Physician/MEDICAL RECEPTION SPECIALIST (Physician/MEDICAL RECEPTION SPECIALIST (Physician/MEDICAL RECEPTION SPECIALIST ) ) ) Arrival Mode Wheelchair Wheelchair [...] Visit Information Type of service Follow-up Visit (Physician/MEDICAL RECEPTION SPECIALIST ) Arrival Mode Wheelchair Transfer Assistance Shira [...] Date Recorded By Document 11/20/24 10:17 KW [id number] 11/20/24 10:35 KW Document 11/27/24 09:35 KW [id number] 11/27/24 09:41 KW Document 12/04/24 10:12 KW [id number] 12/04/24 10:32 KW Document 12/11/24 10:06 KW [id number] 12/11/24 10:28 KW 11/20/24 11/27/2412/04/25 10:17 09:35 10:12 Wound Center Nurse 1 [...] Attached -Granulation Amt Large (67-100%) -Granulation Quality Pale,[place] -Slough/Fibrin -Necrosis Amt Small (1-33%) -Necrotic Tissue [...] Recorded Date Recorded By Document 11/20/24 10:47 [id number] 11/20/24 10:49 Document 11/27/24 10:10 [facility] [id number] 11/27/24 10:20 [facility] Document 12/04/24 10:36 [id number] 12/04/24 10:47 11/20/24 11/27/24 12/04/24 10:47 10:10 [...] -Expiration Date 02/18/29 03/20/29 -Product Lot Number [id number] -Percent Used 100 100 -Lot number of Saline Used [id number] -Bleeding Controlled with Pressure Pressure Pressure -Treatment [...] Recorded Date Recorded By Document 11/20/24 11:12 [facility] [id number] 11/20/24 11:12 [facility] Document 11/27/24 10:20 BM [id number] 11/27/24 10:21 [facility] Document 12/04/24 10:57 DS [id number] 12/04/24 11:53 DS 11/20/24 11/27/24 12/04/24 11:12 [...] Ambulatory Status Wheelchair Wheelchair Wheelchair Transportation ecf ECF [facility] Facility Type [facility] Facility Facility Assessment/Plan Assessment/Plan (1) Non-pressure [...] Cosigner Signature (if applicable): CC: ~ Signed [facility] Work Phone: 1(453) 918-663306-17-2025 Progress note Author Ramon Garcia [facility] Note Date/Time December 04, 2024 10:5 8am [facility] [address] [place] [address] Progress Note - Wound Care 12/04/24 1057 MR#: [id number] Acct: [id number] Name: LANI ZARAGOZA Rep #:[id number] : [...] surgical shoe with heel offloading. 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 Patient has no other complaints. [...] Start: 11/20/24 10:16 Freq: Status: Active Protocol: BUDDY.LOWEXT Activity Type Activity Date Activity User E-sign Co-sign Detail Recorded Client Recorded Date Recorded By Document 11/20/24 10:17 KW [id number] 11/20/24 10:35 KW Document 11/27/24 09:35 KW [id number] 11/27/24 09:41 KW Document 12/04/24 10:12 KW [id number] 12/04/24 10:32 KW 11/20/24 11/27/24 12/04/24 10:17 09:35 10:12 - Today's Visit Information Type of service Follow-up Visit Follow-up Visit Follow-up Visit (Physician/MEDICAL RECEPTION SPECIALIST (Physician/MEDICAL RECEPTION SPECIALIST (Physician/MEDICAL RECEPTION SPECIALIST ) ) ) Arrival Mode Wheelchair Wheelchair [...] Date Recorded By Document 11/20/24 10:17 KW [id number] 11/20/24 10:35 Document 11/27/24 09:35 KW [id number] 11/27/24 09:41 KW Document 12/04/24 10:12 KW [id number] 12/04/24 10:32 KW 11/20/24 11/27/24 12/04/24 10:17 [...] Recorded Date Recorded By Document 11/20/24 10:47 [id number] 11/20/24 10:49 Document 11/27/24 10:10 [facility] [id number] 11/27/24 10:20 [facility] Document 12/04/24 10:36 [id number] 12/04/24 10:47 11/20/24 11/27/24 12/04/24 10:47 10:10 [...] -Expiration Date 02/18/29 03/20/29 -Product Lot Number [id number] -Percent Used 100 100 -Lot number of Saline Used [id number] -Bleeding Controlled with Pressure Pressure Pressure -Treatment [...] Recorded Date Recorded By Document 11/20/24 11:12 [facility] [id number] 11/20/24 11:12 [facility] Document 11/27/24 10:20 [facility] [id number] 11/27/24 10:21 [facility] 11/20/24 11/27/24 11:12 10:20 Wound Care [...] Is Patient Pain Free? Yes Yes - Visit Discharge Discharge Condition Stable Stable Ambulatory Status Wheelchair Wheelchair Transportation ecf F Facility Type Linux Systems Engineer Care Linux Systems Engineer Care Facility Facility Assessment/Plan Assessment/Plan (1) Non-pressure [...] Cosigner Signature (if applicable): CC: ~ Signed [facility] Work Phone: 1(512) 260-573706-13-2025 Radiology Diagnostic study note [facility] Imaging Services [address] [place] [address] [id number] Brain/Head without Contrast MR#: [id number] Acct: [id number] Name: LANI ZARAGOZA Rep #: [id number] : 1955 M 69 From: Francis Crawford MD PCP: Dr. Bernabe Reese MD Status: [place] [facility] CLI Study:Brain/Head without Contrast Date of Exa m: 11/29/24 Exam# [id number] Ordering Dr: Chris Salgado MD PROCEDURE: BRAIN/HEAD [...] Complete resolution of midline shift. Reading Location: [place] [address] CC: Dr. Bernabe Reese MD; Kelli Salgado MD ~ Nail Professional: Signed [facility]06-10-2025 Progress note Author Ramon Garcia [facility] Note Date/Time November 27, 2024 10:1 8am [facility] [address] [place] [address] Progress Note - Wound Care 11/27/24 1017 MR#: [id number] Acct: [id number] Name: LANI ZARAGOZA Rep #:[id number] : [...] surgical shoe with heel offloading. 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 Patient has no other complaints. [...] Start: 11/20/24 10:16 Freq: Status: Active Protocol: BUDDY.LOWEXSamy Activity Type Activity Date Activity User E-sign Co-sign Detail Recorded Client Recorded Date Recorded By Document 11/20/24 10:17 [employer] [id number] 11/20/24 10:35 KW Document 11/27/24 09:35 [employer] [id number] 11/27/24 09:41 KW 11/20/24 11/27/24 10:17 09:35 - Today's Visit Information Type of service Follow-up Visit Follow-up Visit (Physician/MEDICAL RECEPTION SPECIALIST (Physician/MEDICAL RECEPTION SPECIALIST ) ) Arrival Mode Wheelchair Wheelchair Patient [...] Date Recorded By Document 11/20/24 10:17 KW [id number] 11/20/24 10:35 KW Document 11/27/24 09:35 KW [id number] 11/27/24 09:41 KW 11/20/24 11/27/24 10:17 09:35 [...] Recorded Date Recorded By Document 11/20/24 10:47 [id number] 11/20/24 10:49 11/20/24 10:47 Wound Center Nurse [...] Recorded Date Recorded By Document 11/20/24 11:12 [facility] [id number] 11/20/24 11:12 [facility] 11/20/24 11:12 Wound Care Center Nurse [...] Ambulatory Status Wheelchair Transportation ecf Facility Type Linux Systems Engineer Care Facility Assessment/Plan Assessment/Plan (1) Acute osteomyelitis [...] Cosigner Signature (if applicable): CC: ~ Signed [facility] Work Phone: 1(322) 764-167606-03-2025 Progress note Author Ramon Garcia [facility] Note Date/Time November 20, 2024 10:50 am [facility] [address] [place] [address] Progress Note - Wound Care 11/20/24 1049 MR#: [id number] Acct: [id number] Name: LANI ZARAGOZA Rep #:[id number] : [...] surgical shoe with heel offloading. 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 Patient has no other complaints. [...] Recorded Date Recorded By Document 11/20/24 10:17 [id number] 11/20/24 10:35 KW 11/20/24 10:17 - Today's Visit Information Type of service Follow-up Visit (Physician/MEDICAL RECEPTION SPECIALIST ) Arrival Mode Wheelchair Patient Identification Verified [...] Date Recorded By Document 11/20/24 10:17 SIENNA [id number] 11/20/24 10:35 SIENNA 11/20/24 10:17 Wound Center Nurse 1 4.R [...] Date Recorded By Document 11/20/24 10:47 ÁNGEL [id number] 11/20/24 10:49 ÁNGEL 11/20/24 10:47 Wound Center [...] Cosigner Signature (if applicable): CC: ~ Signed [facility] Work Phone: 1(847) 575-336905-27-2025 Progress note Author Ramon Garcia [facility] Note Date/Time November 13, 2024 11:12 am [facility] [address] [place] [address] Progress Note - Wound Care 11/13/24 1104 MR#: [id number] Acct: [id number] Name: LANI ZARAGOZA Rep #:[id number] : [...] surgical shoe with heel offloading. 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 Patient has no other complaints. Objective Data Objective Data Vital Signs: Vital Signs Temp Pulse Resp BP O2 Del Method 96.2 F L 69 18 127/67 H Room Air 11/13/24 10:11/13/24 10:23 11/13/24 10:23 11/13/24 10:23 11/13/24 10:23 [...] Recorded Date Recorded By Document 11/06/24 11:09 [id number] 11/06/24 11:11 KW Document 11/13/24 10:23 [id number] 11/13/24 10:35 KW 11/06/24 11/13/24 11:09 10:23 - Today's Visit Information Type of service Follow-up Visit Follow-up Visit (Physician/MEDICAL RECEPTION SPECIALIST (Physician/MEDICAL RECEPTION SPECIALIST ) ) Arrival Mode Walker Wheelchair Patient [...] Date Recorded By Document 11/06/24 11:09 KW [id number] 11/06/24 11:11 KW Document 11/13/24 10:23 KW [id number] 11/13/24 10:35 KW 11/06/24 11/13/24 11:09 10:23 [...] Recorded Date Recorded By Document 11/06/24 10:53 [id number] 11/06/24 10:54 Document 11/13/24 11:03 [id number] 11/13/24 11:04 11/06/24 11/13/24 10:53 11:03 Wound [...] Date Recorded By Document 11/06/24 11:11 KW [id number] 11/06/24 11:12 KW 11/06/24 11:11 Wound Care [...] Cosigner Signature (if applicable): CC: ~ Signed [facility] Work Phone: 1(582) 540-583605-27-2025 Progress note [facility] [address] [place] [address] Progress Note - Wound Care 11/13/24 1104 MR#: [id number] Acct: [id number] Name: LANI ZARAGOZA Rep #:[id number] : [...] surgical shoe with heel offloading. 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 Patient has no other complaints. [...] Date Recorded By Document 11/06/24 11:09 KW [id number] 11/06/24 11:11 KW Document 11/13/24 10:23 KW [id number] 11/13/24 10:35 KW 11/06/24 11/13/24 11:09 10:23 - Today's Visit Information Type of service Follow-up Visit Follow-up Visit (Physician/MEDICAL RECEPTION SPECIALIST (Physician/MEDICAL RECEPTION SPECIALIST ) ) Arrival Mode Walker Wheelchair Patient [...] Date Recorded By Document 11/06/24 11:09 KW [id number] 11/06/24 11:11 KW Document 11/13/24 10:23 KW [id number] 11/13/24 10:35 KW 11/06/24 11/13/24 11:09 10:23 [...] Recorded Date Recorded By Document 11/06/24 10:53 [id number] 11/06/24 10:54 Document 11/13/24 11:03 [id number] 11/13/24 11:04 11/06/24 11/13/24 10:53 11:03 Wound [...] 3 1/8 x 5 (lg) -Surgifoam (3 06/27 x [...] Date Recorded By Document 11/06/24 11:11 KW [id number] 11/06/24 11:12 KW 11/06/24 11:11 Wound Care [...] Cosigner Signature (if applicable): CC: ~ Signed [facility]05-20-2025 Progress note Author Ramon Garcia [facility] Note Date/Time November 06, 2024 10:58 am [facility] [address] [place] [address] Progress Note - Wound Care 11/06/24 1054 MR#: [id number] Acct: [id number] Name: LANI ZARAGOZA Rep #:[id number] : 1955 69 From: Ramon Garcia DPM PCP: Dr. Bernabe Reese MD Status:NE E RCR Location: History of Present Illness Date of Service: 11/06/24 Chief Complaint: Right heel wound History of Wound: Patient has chronic wound to right heel in setting of diabeticneuropathy, poorly controlled diabetes, peripheral neuropathy, peripheral arterial disease, iron deficiency, chronic chronic anticoagulation. Patient denies constitutional symptoms. Patient ambulates in surgical shoe with heel offloading. 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 Patient has no other complaints. Subjective Subjective Patient is 3 weeks postop from application of right lower extremity external fixation with wound debridement down to bone. Patient was placed on PICC line with IV antibiotics per infectious disease. Patient had a complication postoperatively and suffered a stroke and was ultimately transferred to [facility] which is why I have not [...] Cosigner Signature (if applicable): CC: ~ Signed [facility] Work Phone: 1(896) 708-987305-20-2025 Progress note [facility] [address] [place] [address] Progress Note - Wound Care 11/06/24 1054 MR#: [id number] Acct: [id number] Name: LANI ZARAGOZA Rep #:[id number] : 1955 69 From: Ramon Garcia DPM PCP: Dr. Bernabe Reese MD Status:NE E RCR Location: History of Present Illness Date of Service: 11/06/24 Chief Complaint: Right heel wound History of Wound: Patient has chronic wound to right heel in setting of diabeticneuropathy, poorly controlled diabetes, peripheral neuropathy, peripheral arterial disease, iron deficiency, chronic chronic anticoagulation. Patient denies constitutional symptoms. Patient ambulates in surgical shoe with heel offloading. 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 Patient has no other complaints. Subjective Subjective Patient is 3 weeks postop from application of right lower extremity external fixation with wound debridement down to bone. Patient was placed on PICC line with IV antibiotics per infectious disease. Patient had a complication postoperatively and suffered a stroke and was ultimately transferred to [facility] which is why I have not [...] Cosigner Signature (if applicable): CC: ~ Signed [facility] [id number] Hospital Discharge instructions* Discharge Instructions* Francine Siddiqui, STEAM DISTRIBUTION SUPERVISOR-MEDICAL RECEPTION SPECIALIST - 10/30/2024 10:41 AM EDT Please take [...] you at all times. Stroke Education: visit go.osu.edu/sitw3594 What are the most common symptoms of [...] all ordered medications [] Avoid non-prescription or hcsh-hpi-fvlpfns medication not cleared by your physician [x] [...] may call the neurovascular doctors office at [phone], if you have questions Mon-Tue between 8:30 am and 4:30 pm. - For off hours or the weekend you may call the office or the hospital miter operator at and ask for the stroke resident publication director to be paged. - If you have any other questions or needs, please call Belinda RODRIGUEZ, RN, Stroke Nurse Navigator at [phone] Mon-Tue between 7:00am and 3:00pm. - Additional assistance may be found by reaching out to our Case Management Office at [phone]. *In the event of an Emergency: If you have a physical or psychiatric emergency call 521 or go to your local emergency department. You should also call your outpatient provider's emergency number. Other reference numbers: [facility] Intake Office at [phone]; [facility] at 587-031-2558; or Suicide Prevention Hotline at 043-684-7555. *Helpful phone numbers: Free Crisis Hotline: 9-863-783-GAUM ( ) Suicide Hotline: 522.303.8836 Seniors Suicide Hotline: 466.154.8529 [facility] Youth: [phone] Mental Health of [place]: [phone] (free counseling) [facility] Access Hotline: 714-156-JUWH (691-127-8095) 24-hour crisis text hotline: Text the word "4hope" to 400-387 for crisis support. Texting this number is [...] you may qualify for Medicaid/public assistance: The [facility] Department of Job and Family Services can now process sparks (TANF), food (SNAP) and Medicaid Applications over the phone. Please call 2-771-[facility] ([phone]) and apply over the phone or apply online at www.benefits.[place].gov. Tuesday-Tuesday 8am-12pm noon. Medication Assistance Programs [employer] members can buy 100+ common prescriptions for FREE, $3 or $6. Annual membership is $36 for individuals and $72 for families (up to 6 people, including pets). Sign up online or enroll at your nearest pharmacy! [employer], web site can provide a significant number of coupons for medications at a much lower nicholson. [place] Department of Aging The Department of Aging administers programs and services to meet the needs of older [place]. Services and resources offered per county may include transportation, housekeeping, meals and nutrition, personal care, case management, safety monitoring, home medical equipment, legal services, oracle financial application developer, health and wellness, education, caregiver support, respite care, etc. Call to be connected to the area agency on aging serving your community or visit aging.[place].gov/find-services. Request a consultation with a community resource expert at ltssi.age.[place].gov/ [facility] Stroke Support The [facility] Stroke Support Group is for stroke survivors, friends, and family members. Meets on the Tuesday of each month from 6:30pm-7:30pm at [facility] ([address]; [place] [address]). Contact Ariane Donato, at [phone] or [email or web address]. If you are outside of the [place] area, contact The [place] [employer]roke [employer] at www.stroke.org or 5-084-4-STROKE or for support groups in your area. You may also refer to the Your Care after a Stroke education booklet at go.[facility].edu/zutu5235 for additional resources. * Medications* AHSAN Hutchins - 10/30/2024 10:41 AM EDT Know your medicines Make sure you know why you are taking each medicine. Make a master list of all your medicines. Write down the medicine names and doctors' names. Includedoses and side effects too. And write down why you take each medicine. Include all prescription zjahlrz-qqr-vskszuo medicines, vitamins, and supplements. Keep this list [...] plan your refills so that you can strip picker all your medicines at the same time. [...] breathing -Fever or chills [facility] Miscellaneous Notes* Nursing Notes - Felicitas [...] Carballo - 10/25/2024 1:58 PM EDT Problem: CHAIN HOOKER - Language Goal: Word Retrieval Strategies for [...] and reading comprehension skills. Outcome: Ongoing Problem: CHAIN HOOKER - Cognition Goal: Metacognition - Patient will [...] functional mobility and safety. Outcome: Progressing Problem: CHAIN HOOKER - Cognition Goal: Metacognition - Patient will identify at least x2-3 deficits related to medical condition andhow deficits will impact ability to return home with fading cues to improve safety and independence Outcome: Progressing Problem: CHAIN HOOKER - Language Goal: Word Retrieval Strategies for [...] Progressing * Significant Event - Cory Guzman APRN-MEDICAL RECEPTION SPECIALIST - 10/24/2024 4:00 PM EDT Patient c/o [...] intake, Declines supplements, and has a wound. Orate has notified RD via IHIST Chat about referral. RD to follow. * Nursing Notes - Cassandra Overton RN - 10/23/2024 2:00 AM EDT On admission to [facility], from another [facility] inpatient unit a [...] feel free to contact the podiatry resident publication director. We will be happy to become involvedin [...] Spann - 10/18/2024 9:47 AM EDT Problem: CHAIN HOOKER - Cognition Goal: Metacognition - Patient will identify at least x2-3 deficits related to medical condition andhow deficits will impact ability to return home with fading cues to improve safety and independence Outcome: Ongoing Problem: CHAIN HOOKER - Language Goal: Word Retrieval Strategies for [...] LUE - umbilical hernia Photos uploaded to IH. Gaetano Score: 14 LDA Added:Yes Yahaira Ohara RN documented in [facility] History of Present illness Narrative* ROSALINDA Lugo - 10/30/2024 9:20 AM EDT Care Management Discharge Note Selected Continued Care - Admitted Since 10/16/2024 Destination Coordination complete. Service Provider Services Address Phone Fax Patient Preferred [facility] [place] [id number] [phone] -- Transport Request Mode of Transfer: [facility] Name of Discharge Transport Company: [facility] ETA: 10/30/2024 @10:00am Patient medically stable for discharge per physician/medical team. Patient/Soil Sampler remain inagreement with the discharge plan. Insurance authorization has been received and a HENS has been completed for discharge. Sandrine Boston MSW, ELEMENTARY SCHOOL BAND DIRECTOR Y[employer] Available by Secure Chat * ROSALINDA Lugo - 10/29/2024 9:19 AM EDT Placement Plan Expected Discharge Date: Referred Level of Care: SNF Barriers: Medical readiness, transportation. Current Referrals and Status 1. [facility] - Available and Reserved Patient still anticipated to be medically ready for discharge tomorrow morning. SW will remain available to assist as needed. Sandrine Boston MSW, ROSALINDA Yacht Builder Available by Secure Chat * Francine Siddiqui APRN-MICHAEL - 10/29/2024 7:48 AM EDT Neurovascular Stroke Service Intracerebral Hemorrhage Note IDENTIFYING INFORMATION Lani Zaragoza MR# [id number] 10/29/2024 HISTORY OF PRESENT ILLNESS Lani Zaragoza [...] Intracerebral Hemorrhage Score Intracerebral Hemorrhage (ICH) Scale [place] Coma Scale Points: 0-->GCS 13-15 Age>/=80: 0-->no Infratentorial Origin of Hemorrhage?: 0-->no ICH Volume >/= 30cm(3): 0-->no (less than 30cm(3)) Intraventricular Hemorrhage?: 1-->yes ICH Score (Calculated): 1 Score 30 Day Mortality following ICH 0 0% Mortality 1 13% Mortality 2 26% Mortality 3 72% Mortality 4 97% Mortality 5 100% Mortality ASSESSMENT AND PLAN Neuro: 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 No significant carotid or vertebral artery stenosis MRI brain w and w/o: Stable IPH/IVH. TTE: EF 60-65%; no PFO LDL 105, A1c 10.5 -Stroke Etiology (TOAST Criteria): Likely hemorrhagic transformation of recent R FINISHED HARDWARE ERECTOR infarct which is likely cardioembolic in nature -Antiplatelet plan: Resumed Aspirin 81 mg daily on 10/24 -Statin therapy: Atorvastatin 40 mg daily -Blood Pressure goal: SBP <160 -Continue to hold Eliquis for now, plan to resume 3 weeks post-bleed (11/06/2024) Hemorrhagic Stroke Core Measures -NHISS on [...] Medication Requiring Central Venous Administration : multiple, termite control service representative IV antibiotic therapy Can line/s be removed today? Select all that apply Line 1, no cannot be removed Dressing/s Clean/Dry/Intact?: Select all that apply Line 1, Dressing clean, dry, intact Francine Siddiqui APRN-MEDICAL RECEPTION SPECIALIST 10/29/2024 12:17 PM VITAL SIGNS Temp: [97.6 [...] 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 No progressive mass effect. Stable [...] Electronically Signed By: Annamarie Del Castillo M.D., [place] [facility] on 10/18/2024 10:13 AM XR CHEST 1 [...] discussed the critical finding/s of possible left FINISHED HARDWARE ERECTOR occlusion with Kristen Ramon MD on 10/16/2024 8:57 PM. I personally viewed and interpreted these images and I have reviewed and approved this report. STROKE HEAD-STROKE ALERT ONLY Final Result IMPRESSION: 1. Acute left temporo-occipital parenchymal hemorrhage, likely hemorrhagic transformation of recent FINISHED HARDWARE ERECTOR territory infarct. 2. Trace interventricular hemorrhage. 3. [...] interviewed and examined this patient with the GLOVE PRINTER. I reviewed the history and exam detailed [...] System for discharge. Susanne Goyal Care Management Outsole Paraffiner * NASH Duval - 10/28/2024 12:27 PM EDT Placement Plan Expected Discharge Date: 10/31/2024 Referred Level of Care: SNF Barriers: Medical stability, Transportation Current Referrals and Status 1. [facility] - Accepted/Selected Received confirmation from Brandon at [facility] that they can accept and are aware of pt's IV antibiotic needs. Pt not ready for discharge today (awaiting final Endo recs). CM pst supervisor set up transport for Tuesday at 10am via [facility] (no transport available on Tuesday). Updated team. PRANAV Finley Ceramic Chemist *Please note that I am a float social service manager and that I may not cover the same service everyday. Please call the main Social Work office at for up to date coverage. For Social Work assistance for the weekend, please contact for assistance as needed (8:00am - 4:30pm): [facility]: [phone] Bautista: [phone] Rasheed: [phone] Ross/MICU/PCU Jing: [phone] * Susanne Goyal - 10/28/2024 12:25 PM EDT Care Management Progress Note Transportation for discharge arranged Mode of Transfer: (P) BLS Name of Discharge Transport Company: (P) [facility] ETA: (P) 10/30/2024 @10:00am Pick-up from [facility] 1078/A Destination [facility] [address] [place] [address] Susanne Goyal Care Management Outsole Paraffiner * Elizabeth Bettencourt MD - 10/28/2024 7:11 [...] GFR >90 10/26/2024 HCT:LTO ICH with Left FINISHED HARDWARE ERECTOR stroke CTA:mid/distal left posterior cerebral artery occlusion MRI: L FINISHED HARDWARE ERECTOR stroke with ICH transformation ECHO: EF okay Neuro Exam: MS: Awake. Language: Intact speech and language. Mild dysarthria CN: 2-12 intact. RFD, Motor: 5/5 all over on left and RHP Assessment: Lani Zaragoza is a 69 y.o. 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 Strokefrom Afib Plan: Resume ASA today. Switch to Ac in 3 weeks Can Dc ASA once on AC statin HTN: Aim normotension. Coreg resumed at low dose DM: Insulin RLE OM: Abx continue course per ID Continue statin PT/OT evaluation Risk factor modification and stroke education provided. DVT prophylaxis Start dispo planning Elizabeth Bettencourt MD Naturalist Department of Neurology * Nestor Norton, STEAM DISTRIBUTION SUPERVISOR-MEDICAL RECEPTION SPECIALIST - 10/28/2024 5:24 AM EDT Neurovascular Stroke Service Intracerebral Hemorrhage Note IDENTIFYING INFORMATION Lani Zaragoza MR# [id number] 10/28/2024 HISTORY OF PRESENT ILLNESS Lani Zaragoza [...] parenchymal hemorrhage, likely hemorrhagic transformation of recent FINISHED HARDWARE ERECTOR territory infarct CTA brain/neck: Equivocal for left FINISHED HARDWARE ERECTOR occlusion. No significant carotid or vertebral artery stenosis MRI brain w and w/o: Stable IPH/IVH. TTE: EF 60-65%; no PFO LDL 105, A1c 10.5 -Stroke Etiology (TOAST Criteria): Likely hemorrhagic transformation of recent R FINISHED HARDWARE ERECTOR infarct which is likely cardioembolic in nature [...] Medication Requiring Central Venous Administration : multiple, group home IV antibiotic therapy Can line/s be removed today? Select all that apply Line 1, no cannot be removed Dressing/s Clean/Dry/Intact?: Select all that apply Line 1, Dressing clean, dry, intact Nestor Norton, STEAM DISTRIBUTION SUPERVISOR-MEDICAL RECEPTION SPECIALIST 10/28/2024 9:43 AM VITAL SIGNS Temp: [97.8 [...] 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 No progressive mass effect. Stable [...] Electronically Signed By: Annamarie Del Castillo M.D., [place] [facility] on 10/18/2024 10:13 AM XR CHEST 1 [...] discussed the critical finding/s of possible left FINISHED HARDWARE ERECTOR occlusion with Kristen Ramon MD on 10/16/2024 8:57 PM. I personally viewed and interpreted these images and I have reviewed and approved this report. STROKE HEAD-STROKE ALERT ONLY Final Result IMPRESSION: 1. Acute left temporo-occipital parenchymal hemorrhage, likely hemorrhagic transformation of recent FINISHED HARDWARE ERECTOR territory infarct. 2. Trace interventricular hemorrhage. 3. [...] 10/28/2024 12:44 PM EDT * Anu Yancey [facility] - 10/27/2024 11:57 AM EDT [...] further questions. Name: Anu Yancey RPH Phone: [phone] Date/Time: 10/27/2024 11:57 AM * NASH Duval - 10/27/2024 10:12 AM EDT Placement Plan Expected Discharge Date: 10/29/2024 Referred Level of Care: SNF Barriers: Accepting facility, choice, medical readiness, transportation. Current Referrals and Status [facility] Available 2. [facility] Available/selected 3. [facility] Available 4. [facility] Viewed 5. [facility] Unavailable Spoke with pt's sister/OSCAR Green, who reports that she spoke with the admissions team at the [facility] yesterday and they advised her that she would need to obtain a interior design professional in [place] andhave them come to [facility] to do a financial POA with the [...] discussed placement options and prefer placement at [facility] at this time. SW left message for admissions at [facility] to confirm choice and inquire when they can accept the pt for admission. SW will follow. PRANAV Finley Ceramic Chemist *Please note that I am a float social service manager and that I may not cover the same service everyday. Please call the main Social Work office at for up to date coverage. 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 Strokefrom Afib Plan: Resume ASA today. Switch to Ac in 3 weeks Can Dc ASA once on AC statin HTN: Aim normotension. Cored resumed at low dose DM: Insulin RLE OM: Abx continue course per ID Continue statin PT/OT evaluation Risk factor modification and stroke education provided. DVT prophylaxis Start dispo planning Elizabeth Bettencourt MD Naturalist Department of Neurology * Nestor Norton, JENNIFER-MEDICAL RECEPTION SPECIALIST - 10/27/2024 5:16 AM EDT Neurovascular Stroke Service Intracerebral Hemorrhage Note IDENTIFYING INFORMATION Lani Zaragoza MR# [id number] 10/27/2024 HISTORY OF PRESENT ILLNESS Lani Zaragoza [...] Intracerebral Hemorrhage Score Intracerebral Hemorrhage (ICH) Scale [place] Coma Scale Points: 0-->GCS 13-15 Age>/=80: 0-->no [...] parenchymal hemorrhage, likely hemorrhagic transformation of recent FINISHED HARDWARE ERECTOR territory infarct CTA brain/neck: Equivocal for left FINISHED HARDWARE ERECTOR occlusion. No significant carotid or vertebral artery stenosis MRI brain w and w/o: Stable IPH/IVH. TTE: EF 60-65%; no PFO LDL 105, A1c 10.5 -Stroke Etiology (TOAST Criteria): Likely hemorrhagic transformation of recent R FINISHED HARDWARE ERECTOR infarct which is likely cardioembolic in nature [...] Medication Requiring Central Venous Administration : multiple, group home IV antibiotic therapy Can line/s be removed today? Select all that apply Line 1, no cannot be removed Dressing/s Clean/Dry/Intact?: Select all that apply Line 1, Dressing clean, dry, intact Nestor Norton, STEAM DISTRIBUTION SUPERVISOR-MEDICAL RECEPTION SPECIALIST 10/27/2024 9:13 AM VITAL SIGNS Temp: [97.7 [...] 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 No progressive mass effect. Stable [...] Electronically Signed By: Annamarie Del Castillo M.D., [place] [facility] on 10/18/2024 10:13 AM XR CHEST 1 [...] discussed the critical finding/s of possible left FINISHED HARDWARE ERECTOR occlusion with Kritsen Ramon MD on 10/16/2024 8:57 PM. I personally viewed and interpreted these images and I have reviewed and approved this report. STROKE HEAD-STROKE ALERT ONLY Final Result IMPRESSION: 1. Acute left temporo-occipital parenchymal hemorrhage, likely hemorrhagic transformation of recent FINISHED HARDWARE ERECTOR territory infarct. 2. Trace interventricular hemorrhage. 3. [...] medical readiness, transportation. Current Referrals and Status [facility] Available 2. [facility] Available 3. [facility] Available 4. [facility] Viewed 5. [facility] Unavailable SW left for admissions at the [facility] requesting final determination regarding accepting patient,as patient is currently with appropriate capacity to assist with Medicaid application and/or complete a financial POA per primary team. 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 Strokefrom Afib Plan: Resume ASA today. Switch to Ac in 3 weeks Can Dc ASA once on AC statin HTN: Aim normotension DM: Insulin RLE OM: Abx continue course per ID Continue statin PT/OT evaluation Risk factor modification and stroke education provided. DVT prophylaxis Start dispo planning Elizabeth Bettencourt MD Naturalist Department of Neurology * Roz Alejandre, STEAM DISTRIBUTION SUPERVISOR-MEDICAL RECEPTION SPECIALIST - 10/26/2024 6:00 AM EDT Neurovascular Stroke Service Intracerebral Hemorrhage Note IDENTIFYING INFORMATION Lani Zaragoza MR# [id number] 10/26/2024 HISTORY OF PRESENT ILLNESS Lani Zaragoza [...] Intracerebral Hemorrhage Score Intracerebral Hemorrhage (ICH) Scale [place] Coma Scale Points: 0-->GCS 13-15 Age>/=80: 0-->no [...] parenchymal hemorrhage, likely hemorrhagic transformation of recent FINISHED HARDWARE ERECTOR territory infarct CTA brain/neck: Equivocal for left FINISHED HARDWARE ERECTOR occlusion. No significant carotid or vertebral artery stenosis MRI brain w and w/o: Stable IPH/IVH. TTE: EF 60-65%; no PFO LDL 105, A1c 10.5 -Stroke Etiology (TOAST Criteria): Likely hemorrhagic transformation of recent R FINISHED HARDWARE ERECTOR infarct which is likely cardioembolic in nature -Antiplatelet plan: Resumed Aspirin 81 mg daily on 10/24 -Statin therapy: Atorvastatin 40 mg daily -Blood Pressure goal: SBP <160 -Continue to hold Eliquis for now, plan to resume 3 weeks post-bleed and a repeat head CT (11/06/2024) Hemorrhagic Stroke Core Measures -MAISS on admission 16 -Patient has been started [...] Medication Requiring Central Venous Administration : multiple, group home IV antibiotic therapy Can line/s be removed today? Select all that apply Line 1, no cannot be removed Dressing/s Clean/Dry/Intact?: Select all that apply Line 1, Dressing clean, dry, intact Roz Alejandre APRN-MEDICAL RECEPTION SPECIALIST 10/26/2024 1:36 PM VITAL SIGNS Temp: [97 [...] 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 No progressive mass effect. Stable [...] patency of the left posterior cerebral artery. ICatherine MD have discussed the critical finding/s of possible left FINISHED HARDWARE ERECTOR occlusion with Kristen Ramon MD on 10/16/2024 8:57 PM. I personally viewed and interpreted these images and I have reviewed and approved this report. STROKE HEAD-STROKE ALERT ONLY Final Result IMPRESSION: 1. Acute left temporo-occipital parenchymal hemorrhage, likely hemorrhagic transformation of recent FINISHED HARDWARE ERECTOR territory infarct. 2. Trace interventricular hemorrhage. 3. [...] medical readiness, transportation. Current Referrals and Status [facility] Available 2. [facility] Available 3. [facility] Available 4. [facility] Viewed 5. [facility] Unavailable Still awaiting response from the [facility] at this time. SW updated patient at bedside who said he maybe agreeable to searching for a new facility if necessary. Patient agreeable to SW following up in the AM. Sandrine Boston MSW, ELEMENTARY SCHOOL BAND DIRECTOR Yacht Builder Available by Secure Chat * EVETTE Carballo - 10/25/2024 1:58 PM EDT Acute Care Speech Language Pathology Treatment Best mode of Communication: Spoken language Communication Strategies: eliminate distractions Discharge Recommendations: Based on the below outcome measures/assessment score(s) and CHAIN HOOKER clinicaljudgment, discharge destination recommendation is: Care Home Facility Barriers to discharge home: 1:1 assist needed for IADL's including medication management and finances Supporting factors for discharge setting: Impaired cognitive skills limiting independence (Impairedreading skills) Acute CHAIN HOOKER Outcomes Tracking Communicate basic wants and needs?: yes Demo insight/appreciation of deficits?: yes Complete basic problem solving?: yes Current therapy frequency recommendation in acute: Speech/Lang/Cog Therapy Frequency: 3 times a week Clinical Impression: Lani Zaragoza presents with fluent aphasia (anomic aphasia) given s/p L FINISHED HARDWARE ERECTOR CVA, L temporal ICH andconcerns for cognitive [...] reliability of cognitive assessment. Recommend continue ongoing CHAIN HOOKER services to assist in patient's abilities to return to [facility]. Subjective information: Patient reclined in bed, [...] 0 Oxygen Concentration (%): [21] 21 Acute CHAIN HOOKER Goals Plan of Care by EVETTE Carballo at 10/25/2024 1:58 PM Version 1 of 1 Problem: CHAIN HOOKER - Language Goal: Word Retrieval Strategies for Conversation - Patient will state and/or demonstrate understanding of trained strategies targeting anomia with no more than min cues to use strategies during functional conversation to reduce communication breakdowns Outcome: Ongoing Tx: Reviewed word finding strategies during anomia during conversation. CHAIN HOOKER educated regarding circumlocution strategies to assist with [...] aloud incorrect words. Deferred further trials. Problem: CHAIN HOOKER - Cognition Goal: Metacognition - Patient will [...] 10/25: good candidate; ongoing reading/writing, anomia strategies CHAIN HOOKER Outcomes: CHAIN HOOKER Outcomes / Standardized Measures Score The Orientation [...] 30 Seconds: 20-24 seconds or 36-40 seconds Sjjr-[id number]: three correct repetitions Go / No-Go: correct [...] of session: none altered Needs in reach. 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 Stroke from Afib. Of note, recently admitted to [facility] 10/09 for chronic foot wound s/p debridement with podiatry. Discharged to SNF 10/16 and admitted to [facility] from SNF d/t stroke. Past History No [...] at bedside this afternoon. Pt unavailable, with CHAIN HOOKER. Will continue to follow and follow-up as able/per protocol. Nutrition Focused Physical Exam: Nutrition Focused Physical Exam Completed?: deferred Reason For Deferral: pt unavailable, with CHAIN HOOKER % PO Intake per docflowsheets: Average of 34% Breakfast Lunch Dinner Snacks 10/18 --- --- --- --- 2 --- 50% 0% --- 3 75% 0% 75% --- /4 25% 25% 25% --- 5/5 --- 50% [...] Needs: Weight Used: 73 kg (IBW) EEN: 3397-3991 kcal/day (30-35 kcal/kg) EPN: 110-146 g/day (1.5-2 g/kg) EFN: 2190 mL/day (30 mL/kg) Malnutrition Statement: Does the patient meet criteria for malnutrition: Unable to assess *Based on The Academy and ASPEN Indicators to Diagnose Malnutrition (AAIM) criteria (2012) Kathy Avila, , RD, LD, CSNC Pager #[phone] * Elizabeth Bettencourt MD - 10/25/2024 7:41 [...] GFR >90 10/25/2024 HCT:LTO ICH with Left FINISHED HARDWARE ERECTOR stroke CTA:mid/distal left posterior cerebral artery occlusion MRI: L FINISHED HARDWARE ERECTOR stroke with ICH transformation ECHO: EF okay [...] presents as hemorrhagic stroke alert from 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 Strokefrom Afib Plan: Resume ASA today. Switch to Ac in 2-[address] before starting. Can Dc ASA once on AC CT in am statin HTN: Aim normotension DM: Insulin RLE OM: Abx continue course per ID Continue statin PT/OT evaluation Risk factor modification and stroke education provided. DVT prophylaxis Start dispo planning Elizabeth Bettencourt MD Naturalist Department of Neurology * Roz Alejandre, JENNIFER-MEDICAL RECEPTION SPECIALIST - 10/25/2024 7:17 AM EDT Neurovascular Stroke Service Intracerebral Hemorrhage Note IDENTIFYING INFORMATION Lani Zaragoza MR# [id number] 10/25/2024 HISTORY OF PRESENT ILLNESS Lani Zaragoza [...] Intracerebral Hemorrhage Score Intracerebral Hemorrhage (ICH) Scale [place] Coma Scale Points: 0-->GCS 13-15 Age>/=80: 0-->no [...] parenchymal hemorrhage, likely hemorrhagic transformation of recent FINISHED HARDWARE ERECTOR territory infarct CTA brain/neck: Equivocal for left FINISHED HARDWARE ERECTOR occlusion. No significant carotid or vertebral artery stenosis MRI brain w and w/o: Stable IPH/IVH. TTE: EF 60-65%; no PFO LDL 105, A1c 10.5 -Stroke Etiology (TOAST Criteria): Likely hemorrhagic transformation of recent R FINISHED HARDWARE ERECTOR infarct which is likely cardioembolic in nature [...] Medication Requiring Central Venous Administration : multiple, group home IV antibiotic therapy Can line/s be removed today? Select all that apply Line 1, no cannot be removed Dressing/s Clean/Dry/Intact?: Select all that apply Line 1, Dressing clean, dry, intact Roz Alejandre, STEAM DISTRIBUTION SUPERVISOR-MEDICAL RECEPTION SPECIALIST 10/25/2024 11:22 AM VITAL SIGNS Temp: [98 [...] 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 No progressive mass effect. Stable [...] discussed the critical finding/s of possible left FINISHED HARDWARE ERECTOR occlusion with Kristen Ramon MD on 10/16/2024 8:57 PM. I personally viewed and interpreted these images and I have reviewed and approved this report. STROKE HEAD-STROKE ALERT ONLY Final Result IMPRESSION: 1. Acute left temporo-occipital parenchymal hemorrhage, likely hemorrhagic transformation of recent FINISHED HARDWARE ERECTOR territory infarct. 2. Trace interventricular hemorrhage. 3. [...] EDT Introduced self and role of the command post craftsman to patient. Provided emotional and spiritual support and the patient responded by sharing their experience and discussed the following:family, kinza, concerns, support, losses, and work. Patient encouraged to request a command post craftsman as needed. Chaplains are available 24 hours a day and 7 days a week. For urgent matters in [facility], please page [phone]. If the request is not urgent, please enter a consult. Consults are responded to within 24 hours. Kassie Lagunas, PhD, MDiv, MA, [employer] Super[employer] Properties 10/24/24 193 Clinical Encounter Type Visited With [...] Kinza issues;Meaning of illness;Expectations;Family issues;Coping mechanism;Treatment decisions Operater Education Operater Service Available Yes Educated Patient Topic Coping Skills;Stress management Outcomes Patient Outcomes Reduced distress;Progressed towards acceptance Plan of Care Continue Visiting PRN Referred to RN;Social Work/PCRM * ROSALINDA Lugo - 10/24/2024 3:17 PM EDT Placement Plan Expected Discharge Date: Referred Level of Care: SNF Barriers: Accepting facility, choice, medical readiness, transportation. Current Referrals and Status [facility] Available 2. [facility] Available 3. [facility] Available 4. [facility] Viewed 5. [facility] Unavailable SW spoke with patient's sister and [...] with SNFs and Norma tomorrow. MISTY Mcdaniels, ELEMENTARY SCHOOL BAND DIRECTOR [employer] Available by Secure Chat * Rebecca Lantigua, PT - 10/24/2024 11:19 AM EDT Acute Physical Therapy Treatment Prior Gross Functional Mobility: independent Current AM-PAC score(s): CURRENT AM-PAC Mobility Raw Score: 6 Based on the above AM-PAC score(s) and PT clinical judgment, patient is a good candidate for discharge to Care Home Facility Barriers to discharge home: Patient [...] anterior weight shifting Mobility Assessment/Intervention: Rolling/Turning Mobility [place] Level: Rolling/Turning: maximum assist (25% patient effort) Physical Assist: Rolling/Turnin person assist Bed Features/Set-up: Rolling/Turning: Flat Skilled Rationale: Positioning, Sequencing, Hand placement, Verbal cues Skilled Intervention/Details: Rolling/Turning: pt completed bilateral rolling in bed for linen change and hygiene care Supine to Sit Mobility [place] Level: Supine->Sit: maximum assist (25% patient effort) Physical Assist: Supine->Sit: 2 person assist Bed Features/Set-up: Supine->Sit: Head of bed elevated, Use of bed rail Skilled Rationale: Positioning, Sequencing Skilled Intervention/Details: Supine->Sit: pt completed supine to sit with step by step cues forsequencing Transfer Assessment/Intervention: Gait/Functional Mobility Assessment/Intervention: Stairs Assessment/Intervention: Outcome Score(s): CURRENT [facility] Basic Mobility Inpatient Short Form Turning over in bed: 1 - Total Assistance Moving from lying on back to sittin - Total Assistance Moving to and from bed to chair: 1 - Total Assistance Sitting/standing from chair: 1 - Total Assistance Walk in hospital room: 1 - Total Assistance Climbing 3-5 steps with a railin - Total Assistance CURRENT [facility] Mobility Raw Score: 6 CURRENT [facility] Mobility Functional Limitation: 100.00% Impaired in Basic [...] Hemorrhage Note IDENTIFYING INFORMATION Lani Zaragoza MR# [id number] 10/24/2024 HISTORY OF PRESENT ILLNESS Lani Zaragoza [...] parenchymal hemorrhage, likely hemorrhagic transformation of recent FINISHED HARDWARE ERECTOR territory infarct CTA brain/neck: Equivocal for left FINISHED HARDWARE ERECTOR occlusion. No significant carotid or vertebral artery stenosis MRI brain w and w/o: Stable IPH/IVH. TTE: EF 60-65%; no PFO LDL 105, A1c 10.5 -Stroke Etiology (TOAST Criteria): Likely hemorrhagic transformation of recent R FINISHED HARDWARE ERECTOR infarct which is likely cardioembolic in nature -Antiplatelet plan: Resumed Aspirin 81 mg daily on 10/24 -Statin therapy: Atorvastatin 40 mg daily -Blood Pressure goal: SBP <160 -Continue to hold Eliquis for now, plan to resume 3 weeks post-bleed and a repeat head CT Hemorrhagic Stroke Core Measures -MAISS on admission 16 -Patient has been started [...] Medication Requiring Central Venous Administration : multiple, termite control service representative IV antibiotic therapy Can line/s be removed today? Select all that apply Line 1, no cannot be removed Dressing/s Clean/Dry/Intact?: Select all that apply Line 1, Dressing clean, dry, intact Cory Guzman, STEAM DISTRIBUTION SUPERVISOR-MEDICAL RECEPTION SPECIALIST 10/24/2024 2:42 PM VITAL SIGNS Temp: [97.6 [...] 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 No progressive mass effect. Stable [...] discussed the critical finding/s of possible left FINISHED HARDWARE ERECTOR occlusion with Kristen Ramon MD on 10/16/2024 8:57 PM. I personally viewed and interpreted these images and I have reviewed and approved this report. STROKE HEAD-STROKE ALERT ONLY Final Result IMPRESSION: 1. Acute left temporo-occipital parenchymal hemorrhage, likely hemorrhagic transformation of recent FINISHED HARDWARE ERECTOR territory infarct. 2. Trace interventricular hemorrhage. 3. [...] OT clinical judgment, discharge destination recommendation is: Care Home Facility Barriers to discharge home: Patient [...] (Mild bilateral LEs.) Mobility Assessment/Intervention: Rolling/Turning Mobility [place] Level: Rolling/Turning: maximum assist (25% patient effort) [...] hygiene/lesvia-care post bladder incontinence. Scooting Bridging Mobility [place] Level: Scooting/Bridging: dependent (less than 25% patient effort) Physical Assist: Scooting/Bridgin person assist Bed Features/Set-up: Scooting/Bridging: Flat Supine to Sit Mobility [place] Level: Supine->Sit: maximum assist (25% patient effort) [...] time/effort for performance. Sit to Supine Mobility [place] Level: Sit->Supine: maximum assist (25% patient effort) [...] dependent assistance x 2. Outcome Score(s): CURRENT [facility] Daily Activity Inpatient Short Form Putting on/Taking Off Lower Body Clothin - Total Assistance Bathin - A Lot of Assistance Toiletin - Total Assistance Putting on/Taking Off Upper Body Clothin - A Little Assistance Groomin - A Little Assistance Eatin - No Assistance CURRENT [facility] Activity Raw Score: 14 CURRENT [facility] Activity Functional Limitation/Modifier: 59.67% Currently Impaired in [...] discharge to address noted deficits and progress junar ds achieving increased independence in occupational performance. [...] GFR >90 10/23/2024 HCT:LTO ICH with Left FINISHED HARDWARE ERECTOR stroke CTA:mid/distal left posterior cerebral artery occlusion MRI: L FINISHED HARDWARE ERECTOR stroke with ICH transformation ECHO: EF okay Neuro Exam: MS: Awake. Language: Intact speech and language. Mild dysarthria CN: 2-12 intact. RFD, Motor: 5/5 all over on left and RHP Assessment: Lani Zaragoza is a 69 y.o. 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 Strokefrom Afib Plan: Resume ASA today. Switch to Ac in 2-[address] before starting. Can Dc ASA once on AC statin HTN: Aim normotension DM: Insulin RLE OM: Abx continue course per ID Continue statin PT/OT evaluation Risk factor modification and stroke education provided. DVT prophylaxis Start dispo planning Elizabeth Bettencourt MD Naturalist Department of Neurology * Josr Higuera, [facility] - 10/23/2024 11:58 PM EDT [...] further questions. Name: Josr Higuera RPH Phone: [phone] Date/Time: 10/23/2024 11:58 PM * ROSALINDA Lugo - 10/23/2024 3:34 PM EDT Placement Plan Expected Discharge Date: Referred Level of Care: SNF Barriers: Accepting facility, choice, medical readiness, IV antibiotics, transportation. Current Referrals and Status [address]. [facility] - Available 11 Other SNFS: Sent Patient transferred to [facility] with SNF referral reserved. However, SNF [...] to look for alternative SNF. MISTY Mcdaniels, ELEMENTARY SCHOOL BAND DIRECTOR [employer] Available by Secure Chat * Shweta Garcia [...] intake, Declines supplements, and has a wound. [facility] has notified RD via IHIST Chat [...] and/or swallowing Food Allergies reviewed:none Cultural or Mosque Restrictions/Preferences: none Pt reports unsure of any [...] .56 Meds: Lasix, Senna, Miralax Aydin Byrd [facility] Supervisor Sawmill Student Cosigned by RAYMOND Thompson at 10/23/2024 [...] intake, Declines supplements, and has a wound. [facility] has notified RD via IHIST Chat [...] GFR >90 10/23/2024 HCT:LTO ICH with Left FINISHED HARDWARE ERECTOR stroke CTA:mid/distal left posterior cerebral artery occlusion MRI: L FINISHED HARDWARE ERECTOR stroke with ICH transformation ECHO: EF okay Neuro Exam: MS: Awake. Language: Intact speech and language. Mild dysarthria CN: 2-12 intact. RFD, Motor: 5/5 all over on left and RHP Assessment: Lani Zaragoza is a 69 y.o. 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 Strokefrom Afib Plan: AP and AC held currently. ASA in a week and AC in 2-3 weeks statin HTN: Aim normotension DM: Insulin RLE OM: Abx continue course per ID Continue statin PT/OT evaluation Risk factor modification and stroke education provided. DVT prophylaxis Start dispo planning Elizabeth Bettencourt MD Naturalist Department of Neurology * Sohan Sawyer, STEAM DISTRIBUTION SUPERVISOR-MEDICAL RECEPTION SPECIALIST - 10/23/2024 6:59 AM EDT Neurovascular Stroke Service Intracerebral Hemorrhage Note IDENTIFYING INFORMATION Lani Zaragoza MR# [id number] 10/23/2024 HISTORY OF PRESENT ILLNESS Lani Zaragoza [...] Intracerebral Hemorrhage Score Intracerebral Hemorrhage (ICH) Scale [place] Coma Scale Points: 0-->GCS 13-15 Age>/=80: 0-->no [...] parenchymal hemorrhage, likely hemorrhagic transformation of recent FINISHED HARDWARE ERECTOR territory infarct CTA brain/neck: Equivocal for left FINISHED HARDWARE ERECTOR occlusion. No significant carotid or vertebral artery stenosis MRI brain w and w/o: Stable IPH/IVH. TTE: EF 60-65%; no PFO LDL 105, A1c 10.5 -Stroke Etiology (TOAST Criteria): Likely hemorrhagic transformation of recent R FINISHED HARDWARE ERECTOR infarct which is likely cardioembolic in nature [...] ASA 3 weeks post stroke -Start ASA /, stop with resumption of Eliquis in 3 [...] aim for euvolemia now -Nocturnal BiPAP Sohan Sawyer, JENNIFER-MEDICAL RECEPTION SPECIALIST 10/23/2024 2:02 PM VITAL SIGNS Temp: [97 [...] 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 No progressive mass effect. Stable [...] discussed the critical finding/s of possible left FINISHED HARDWARE ERECTOR occlusion with Kristen Ramon MD on 10/16/2024 8:57 PM. I personally viewed and interpreted these images and I have reviewed and approved this report. STROKE HEAD-STROKE ALERT ONLY Final Result IMPRESSION: 1. Acute left temporo-occipital parenchymal hemorrhage, likely hemorrhagic transformation of recent FINISHED HARDWARE ERECTOR territory infarct. 2. Trace interventricular hemorrhage. 3. [...] MD at 10/23/2024 3:33 PM EDT * Ashley DockeryAHSAN redmond - 10/22/2024 1:44 PM EDT Outpatient Parenteral [...] Providers: Outside ID Provider Dr Gregorio Trinidad ([facility] # [phone]) Labs: Please have the Home Care Company or Extended Care Facility obtain the following labs and fax to [phone], attention Outside ID Provider Dr Trinidad - [...] discharged to a [facility] ([facility]), we will defer ID Care to the Infectious Disease Providers at the [facility] facility. Please instruct the facility that if the patient requires ID Follow-up after discharge, then they should call our office to arrange for an appointment. Central Access: Can Central Access be removed at the end of therapy: Yes Additional notes: Patient needs follow up scheduled with Dr Amos Soriano APRN-MICHAEL Cosigned by Sherrie Whalen MD at 10/22/2024 [...] GFR >90 10/22/2024 HCT:LTO ICH with Left FINISHED HARDWARE ERECTOR stroke CTA:mid/distal left posterior cerebral artery occlusion MRI: L FINISHED HARDWARE ERECTOR stroke with ICH transformation ECHO: EF okay Neuro Exam: MS: Awake. Language: Intact speech and language. Mild dysarthria CN: 2-12 intact. RFD, VF ? Decreased on right Motor: 5/5 all over on left and RHP Assessment: Lani Zaragoza is a 69 y.o. 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 Strokefrom Afib Plan: AP and AC held currently. ASA in a week and AC in 2-3 weeks statin HTN: Aim normotension DM: Insulin RLE OM: Abx Continue statin PT/OT evaluation Risk factor modification and stroke education provided. DVT prophylaxis Elizabeth Bettencourt MD Naturalist Department of Neurology * Ashley Soriano, STEAM DISTRIBUTION SUPERVISOR-MEDICAL RECEPTION SPECIALIST - 10/22/2024 1:20 PM EDT Images from [...] Proteus penneri, Bacteroides spp., and Clostridium ramosum [facility] 10/17 Bcx- [facility] 10/18 MRSA/MSSA screen - negative Imaging: MRI BRAIN WITHOUT CONTRAST Final Result IMPRESSION: Grossly stable parenchymal hemorrhage with surrounding edema centered in the left temporooccipital region, which could 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 No progressive mass effect. Stable small volume of intraventricular extension of hemorrhage. FOOT RIGHT 3+ VIEWS Final Result IMPRESSION: Limited examination as above without acute osseous abnormality. Possible debridement site along the posterior superior calcaneal margin. SSMENT: Pt is a 69 y.o. male with PMH: of A-fib on Eliquis, DM (uncontrolled) and OM R calcaneous. He was being treated at OSH ([facility]) for a right heel wound with [...] acute hemorrhagic stroke that prompted transfer to [facility]. He has continued on IV david/vanc while here. Received update on OSH cultures of C albicans growth from previous OR cultures. He was started on IV micafungin on 10/18. I have reached out to his outside ID provider - Dr Gregorio Trinidad ([facility] # [phone]). They will continue to follow him after discharge to complete the antibiotic course. We will transition to oral fluconazole - and I updated Dr Trinidad's office of this. R calcaneal OM - s/p debridement ([facility]) MRSE bacteremia - ([facility]) Acute L ICH DM uncontrolled with [...] ATTENDING: Dr Koby Soriano APRN, MS, Adult GLOVE PRINTER-C Infectious Diseases Pager [phone] Cosigned by Sherrie Whalen MD at 10/22/2024 [...] abx as outlined by Dr. Santana at [facility]. Sherrie Whalen MD [employer]ar Maker Hand of Clinical Medicine Division of Infectious Diseases Pager: [phone] * Rebecca Lantigua, PT - 10/22/2024 12:56 PM EDT Acute Physical Therapy Treatment Prior Gross Functional Mobility: independent Current AM-PAC score(s): CURRENT AM-PAC Mobility Raw Score: 7 Based on the above AM-PAC score(s) and PT clinical judgment, patient is a good candidate for discharge to Care Home Facility Barriers to discharge home: Patient [...] posture Mobility Assessment/Intervention: Supine to Sit Mobility [place] Level: Supine->Sit: maximum assist (25% patient effort) Physical Assist: Supine->Sit: 2 person assist Bed Features/Set-up: Supine->Sit: Head of bed elevated, Use of bed rail Skilled Rationale: Positioning, Sequencing, Hand placement, Verbal cues Sit to Supine Mobility [place] Level: Sit->Supine: maximum assist (25% patient effort) Physical Assist: Sit->Supine: 2 person assist Bed Features/Set-up: Sit->Supine: Flat Transfer Assessment/Intervention: Gait/Functional Mobility Assessment/Intervention: Stairs Assessment/Intervention: Outcome Score(s): CURRENT [facility] Basic Mobility Inpatient Short Form Turning over in bed: 2 - A Lot of Assistance Moving from lying on back to sittin - Total Assistance Moving to and from bed to chair: 1 - Total Assistance Sitting/standing from chair: 1 - Total Assistance Walk in hospital room: 1 - Total Assistance Climbing 3-5 steps with a railin - Total Assistance CURRENT [facility] Mobility Raw Score: 7 CURRENT [facility] Mobility Functional Limitation: 92.36% Impaired in Basic Mobility Interventions: Assessment & Plan: Pt making good progress toward therapy goals, improving balance/sitting tolerance Patient Instruction/Education this session: Learners: Patient Education provided: Activity outside of therapy, Discharge recommendations Plan for next session: Continue to progress sitting tolerance, balance Acute PT Goals Plan of Care by Rebecca Lantiuga PT at 10/22/2024 12:56 PM Version 1 [...] Physical Therapy Discharge Summary. * Sohan Sawyer APRN-MICHAEL - 10/22/2024 11:57 AM EDT Neurovascular Stroke Service Intracerebral Hemorrhage Note IDENTIFYING INFORMATION Lani Zaragoza MR# [id number] 10/22/2024 HISTORY OF PRESENT ILLNESS Lani Zaragoza [...] diuresis for respiratory management 10/22: Tx to [facility] service PHYSICAL EXAM Gen: awake, alert, [...] parenchymal hemorrhage, likely hemorrhagic transformation of recent FINISHED HARDWARE ERECTOR territory infarct CTA brain/neck: Equivocal for left FINISHED HARDWARE ERECTOR occlusion. No significant carotid or vertebral artery stenosis MRI brain w and w/o: Stable IPH/IVH. TTE: EF 60-65%; no PFO LDL 105, A1c 10.5 -Stroke Etiology (TOAST Criteria): Likely hemorrhagic transformation of recent R FINISHED HARDWARE ERECTOR infarct which is likely cardioembolic in nature [...] for euvolemia now -Nocturnal BiPAP Sohan Sawyer APRN-MEDICAL RECEPTION SPECIALIST 10/22/2024 12:10 PM VITAL SIGNS Temp: [96.6 [...] 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 No progressive mass effect. Stable [...] Electronically Signed By: Annamarie Del Castillo M.D., [facility] on 10/18/2024 10:13 AM XR CHEST 1 [...] discussed the critical finding/s of possible left FINISHED HARDWARE ERECTOR occlusion with Kristen Ramon MD on 10/16/2024 8:57 PM. I personally viewed and interpreted these images and I have reviewed and approved this report. STROKE HEAD-STROKE ALERT ONLY Final Result IMPRESSION: 1. Acute left temporo-occipital parenchymal hemorrhage, likely hemorrhagic transformation of recent FINISHED HARDWARE ERECTOR territory infarct. 2. Trace interventricular hemorrhage. 3. [...] 10/22/2024 3:27 PM EDT * Sergei Atkins [facility] - 10/22/2024 11:23 AM EDT Department of Pharmacy Antimicrobial Stewardship Documentation Note Patient: Lani Zaragoza Room/Bed: [facility]/ Based upon discussion on rounds the following [...] with any further questions. Name: Sergei Atkins [facility] Phone: [phone] Date/Time: 10/22/2024 11:23 AM * AHSAN Charles - 10/22/2024 9:13 AM EDTSummary: Consult Sign Off Images from the original note were not included. [facility] Inpatient Diabetes Consults - Progress Note- For provider publication director: DARIENA : TEAM 2 Assessment Uncontrolled type [...] to discharge for final recs. For provider publication director, please use QLOSA : TEAM 2 Clinical Practice Guideline "Inpatient Management of Diabetes Mellitus (DM): Non- Adults" Plan Hospital Plan: Continue current regimen Basal: Glargine 28 units at 1200 Prandial: Insulin lispro 1 unit per 6 grams of carbs ACHS and PRN Correction: Insulin lispro 1 unit per 25 mg/dl greater than 150 mg/dl ACHS Education: following with para educator. Aware will need prandial insulin at [...] FixedvsFlexible: Fixed: U100 Lispro Pens with Pen [place] MAX DAILY DOSE 60 10 Units for [...] Auto-injector Follow up needed: Does not need [facility] Endocrinology appt PCP after discharge [...] diabetes mellitus who was a transferred from [facility] where he originally presented for management [...] OT clinical judgment, discharge destination recommendation is: Care Home Facility Barriers to discharge home: Patient [...] to place (Pt reported current year as "2020.") Following Commands: Follows one step commands with increased time, Follows one step commands with repetition Safety Judgment: Decreased awareness of need for assistance, Decreased awareness of need for safety Awareness of Errors: Decreased awareness of errors Deficits: Decreased awareness of deficits Attention Span: Attends with cues to redirect, Difficulty attending to directions, Difficulty dividing attention Memory: Decreased termite control service representative memory, Decreased short term memory Problem Solving: [...] bilateral UEs.) Mobility Assessment/Intervention: Scooting Bridging Mobility [place] Level: Scooting/Bridging: dependent (less than 25% patient effort) Physical Assist: Scooting/Bridgin person assist Bed Features/Set-up: Scooting/Bridging: Flat Supine to Sit Mobility [place] Level: Supine->Sit: maximum assist (25% patient effort) [...] limited by cognition/comprehension. Sit to Supine Mobility [place] Level: Sit->Supine: maximum assist (25% patient effort) Physical Assist: Sit->Supine: 2 person assist Bed Features/Set-up: Sit->Supine: Flat Skilled Rationale: Cues for increased safety, Initiation and execution of task, Technique of activity, Tactile cues, Verbal cues, Hand placement, Sequencing, Positioning Skilled Intervention/Details: Sit->Supine: Cues for initiation/sequencing/safety, as well as assisting with upper trunk support and LEs. Outcome Score(s): CURRENT [facility] Daily Activity Inpatient Short Form Putting on/Taking Off Lower Body Clothin - Total Assistance Bathin - A Lot of Assistance Toiletin - Total Assistance Putting on/Taking Off Upper Body Clothin - A Lot of Assistance Groomin - A Lot of Assistance Eatin - A Little Assistance CURRENT [facility] Activity Raw Score: 11 CURRENT [facility] Activity Functional Limitation/Modifier: 70.42% Currently Impaired in [...] discharge to address noted deficits and progress junar ds achieving increased independence in occupational performance. [...] ASSESSMENT AND PLAN Neuro: (10/16/2024) Acute Left FINISHED HARDWARE ERECTOR CVA Left temporal ICH likely hemorrhagic transformation [...] Temperooccipital ICH likely hemorrhagic transformation of left FINISHED HARDWARE ERECTOR stroke, ICH, mild mass effect - 10/17: 6H-stability CT H: mild increased edema surrounding ICH with 3 mm R-pickrad MLS. Exam otherwise not significantly changed - 10/18 CTH follow up: unchanged hematoma with surrounding edema in L temporal occipital lobes - 10/21 MRI B: Grossly stable parenchymal hemorrhage with surrounding edema centered in the left temporooccipital region, which could 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 No progressive mass effect. - [...] SpO2 >92%; wean FiO2 as tolerated - [id number], encourage pulmonary toileting - Duoneb Q6H PRN [...] and hydralazine - Amlodipine 10 mg daily (/ increase due to decrease in carvedilol) - Holding Coreg 6.25 mg Q12H (/ decrease from 12.5 due to bradycardia; further bradycardia 5/5 AM) - Afib: - Hold AC for [...] 72 hours. - DIET CARB CONTROLLED - [place] Swallow Screening Result: passed=cleared for oral intake [...] ID and Podiatry consulted - 10/18 OSH [facility] [employer] [facility] who did fixation Dr. Ramon Garcia DPM, [...] Family Engagement Primary Emergency Contact: Norma Rosas ([facility]) Last updated: 10/21 family updated at bedside [x] Get lines out [place]: Beard: inserted 10/17, (indication: diuresis, fluid goals), discontinue 10/21 Rectal tube: Enteral access: Central lines: Central Line LDAs Active Central Line Access Devices Name Placement date Placement time Site Days PICC Line - Single Lumen 10/16/24224910/16/242249 -- 5 Central Line Indications: Medication Requiring Central Venous Administration - group home antibiotics Left PICC line from OSH If [...] the assigned neurocritical care provider (resident, fellow, GLOVE PRINTER, orPA) or page/call the corresponding number below NCC1 (Beds 1348-9376): [place] # [phone], pager #[phone] NCC2 (Beds 6809-9683, 12 Jing, and overflow): [employer] #: [phone], pager #[phone] Cosigned by Daniel Dominique MD at 10/22/2024 [...] therapeutic anticoagulation and antiplatelets - Atorvastatin - PT/OT/CHAIN HOOKER evaluation - Continue gabapentin for peripheral neuropathy [...] 32min Daniel Dominique * Olivier Kaufman Jr., [facility] - 10/22/2024 12:56 AM EDT [...] any further questions. Name: Olivier Kaufman Jr. [facility] Phone: [phone] Date/Time: 10/22/2024 12:56 AM * Sangita Valenzuela, [facility] - 10/21/2024 4:42 PM EDT [...] further questions. Name: Sangita Valenzuela RPH Phone: [phone] Date/Time: 10/21/2024 4:42 PM * Germain Valle MD - 10/21/2024 10:02 AM EDT Images from the original note were not included. [facility] Inpatient Diabetes Consults - Progress Note- For provider publication director: QGENDA : TEAM 2 Assessment Uncontrolled type [...] than 150 mg/dl ACHS Education: following with para educator. Aware will need insulin at discharge. [...] FixedvsFlexible: Fixed: U100 Lispro Pens with Pen [place] MAX DAILY DOSE 60 10 Units for [...] left shunt with agitated saline. * Dillan uGzman MD - 10/21/2024 8:49 AM EDT I have independently seen and examined the patient on 10/21/24. I agree with the history, examination, assessment and plan as documented by the GLOVE PRINTER with my changes/additions added. Patient is a [...] therapeutic anticoagulation and antiplatelets - Atorvastatin - PT/OT/CHAIN HOOKER evaluation - Continue gabapentin for peripheral neuropathy [...] and other supportive care as per the GLOVE PRINTER note from the same day This patient [...] MD Neurocritical Care Attending * Keara Castillo, STEAM DISTRIBUTION SUPERVISOR-MEDICAL RECEPTION SPECIALIST - 10/21/2024 7:42 AM EDT NEUROCRITICAL CARE [...] ASSESSMENT AND PLAN Neuro: (10/16/2024) Acute Left FINISHED HARDWARE ERECTOR CVA Left temporal ICH likely hemorrhagic transformation [...] Temperooccipital ICH likely hemorrhagic transformation of left FINISHED HARDWARE ERECTOR stroke, ICH, mild mass effect - 10/17: [...] SpO2 >92%; wean FiO2 as tolerated - [id number], encourage pulmonary toileting - Duoneb Q6H PRN [...] and hydralazine - Amlodipine 10 mg daily (/ increase due to decrease in carvedilol) - [...] - 10/17 trop repeat for air hunger: 10/16 ECG: AFib, interfascicular block Renal/: No [...] 72 hours. - DIET CARB CONTROLLED - [place] Swallow Screening Result: passed=cleared for oral intake [...] ID and Podiatry consulted - 10/18 OSH [facility] [facility] [employer] [facility] who did fixation Dr. Ramon Garcia DPJoyce, reach out 10/19 for surgical recommendations to [...] updated at bedside [x] Get lines out Milagros: Beard: inserted 10/17, (indication: diuresis, fluid goals), discontinue 10/21 Rectal tube: Enteral access: Central lines: Central Line LDAs Active Central Line Access Devices Name Placement date Placement time Site Days PICC Line - Single Lumen 10/16/24224910/16/242249 -- 4 Central Line Indications: Medication Requiring Central Venous Administration - termite control service representative antibiotics Left PICC line from OSH If [...] Discussed with NCCU Attending, Dr. Thomas Castillo, STEAM DISTRIBUTION SUPERVISOR-MEDICAL RECEPTION SPECIALIST 10/21/24 7:42 AM Check the treatment team to find the assigned neurocritical care provider (resident, fellow, GLOVE PRINTER, orPA) or page/call the corresponding number below NCC1 (Beds 2974-5537): Russ # [phone], pager #[phone] NCC2 (Beds 9077-6947, 12 Jing, and overflow): [employer] #: [phone], pager #[phone] * Maryann Douglas RPH - 10/20/2024 12:19 [...] further questions. Name: Maryann Douglas RPH Phone: [phone] Date/Time: 10/20/2024 12:19 PM * Germain Valle MD - 10/20/2024 10:36 AM EDT Images from the original note were not included. [facility] Inpatient Diabetes Consults - Progress Note- For provider publication director: QGENDA : TEAM 2 Assessment Uncontrolled type [...] than 150 mg/dl ACHS Education: following with para educator. Aware will need insulin at discharge. [...] FixedvsFlexible: Fixed: U100 Lispro Pens with Pen [place] MAX DAILY DOSE 60 10 Units for [...] assessment and plan as documented by the GLOVE PRINTER with my changes/additions added. 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 - DIET CARB CONTROLLED - [place] Swallow Screening Result: passed=cleared for oral intake [...] ID and Podiatry consulted - 10/18 OSH [facility] [facility] [facility] who did fixation Dr. Ramon Garcia DPM, [...] phone by MADHURI [x] Get lines out [place]: Beard: inserted 10/17, (indication: diuresis, fluid goals) Rectal tube: Enteral access: Central lines: Central Line LDAs Active Central Line Access Devices Name Placement date Placement time Site Days PICC Line - Single Lumen 10/16/24224910/16/242249 -- 3 Central Line Indications: Medication Requiring Central Venous Administration - termite control service representative antibiotics Left PICC line from OSH If [...] notified (PICC) Discussed with NCCU Attending, Dr. AHSAN Lamar 10/20/24 1:27 PM Check the treatment team to find the assigned neurocritical care provider (resident, fellow, GLOVE PRINTER, orPA) or page/call the corresponding number below NCC1 (Beds 6647-6322): [employer]um # [phone], pager #[phone] NCC2 (Beds 2422-5507, 12 Jing, and overflow): [employer] #: [phone], pager #[phone] * Yaihr Munguia, [facility] - 10/19/2024 7:11 PM EDT [...] further questions. Name: Yahir Munguia RPH Phone: [phone] Date/Time: 10/19/2024 7:11 PM * Amelia West Darnell, STEAM DISTRIBUTION SUPERVISOR-MEDICAL RECEPTION SPECIALIST - 10/19/2024 1:35 PM EDT [facility] Inpatient Diabetes Consults - Progress Note- For provider publication director: QGENDA : TEAM 2 Assessment Uncontrolled type [...] than 150 mg/dl ACHS Education: following with para educator. Aware will need insulin at discharge. [...] FixedvsFlexible: Fixed: U100 Lispro Pens with Pen [place] MAX DAILY DOSE 60 10 Units for [...] Number of Occurrences: 1 Current Regimen: Basal: [id number] units Q1500 Prandial: none NPO Enteral feeding: [...] shunt with agitated saline. * Sangita Valenzuela [facility] - 10/19/2024 1:11 PM EDT [...] any questions, Name: Sangita Valenzuela RPH Phone: [phone] Date/Time: 10/19/2024 1:12 PM * Dillan Guzman MD - 10/19/2024 10:41 AM EDT I have independently seen and examined the patient on 10/19/24. I agree with the history, examination, assessment and plan as documented by the GLOVE PRINTER with my changes/additions added. 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 [...] Temperooccipital ICH likely hemorrhagic transformation of left FINISHED HARDWARE ERECTOR stroke, ICH, mild mass effect - 10/17: [...] SpO2 >92%; wean FiO2 as tolerated - [id number], encourage pulmonary toileting - Duoneb Q6H PRN [...] Indicated if LDL >70; began Recent Labs 10/16/24 2258 CHOLESTEROL 165 TRIG 113 HDL 37* - [...] TP 7.2 - DIET CARB CONTROLLED - [place] Swallow Screening Result: passed=cleared for oral intake - Monitor airway closely while still requiring intermittent BIPAP, okay for small snacks with supervision when BIPAP is off Bowel regimen: - Last Bowel Movement: (PROJECT MANAGER FINANCE) - Senna, miralax Stress ulcer prophylaxis: - [...] Heme/Onc: Anemia of Chronic Disease Recent Labs 10/16/245 10/16/24 2258 10/18/24 0022 10/18/24 1345 10/19/24 [...] ID and Podiatry consulted - 10/18 OSH [facility] [facility] who did fixation Dr. Ramon Garcia DPM, [...] .Hypertension, Uncomplicated - Ischemic CVA, Location: Left FINISHED HARDWARE ERECTOR - hemorrhagic transformation ICU Checklist: [x] Assess [...] the assigned neurocritical care provider (resident, fellow, GLOVE PRINTER, orPA) or page/call the corresponding number below NCC1 (Beds 2648-4255): Russ # [phone], pager #[phone] NCC2 (Beds 3406-5670, 12 Jing, and overflow): Russ #: [phone], pager #[phone] * Rogelio Gan RCP - 10/19/2024 10:20 [...] duffy-white differentiation, predominantly localizing to the left FINISHED HARDWARE ERECTOR territory. This is associated with overlying sulcal [...] clinical advancement; NCCU primary Please page [phone] ([phone]) with questions. Principal Problem: Ischemic cerebrovascular accident [...] unless otherwise specified. . * Yahir Munguia [facility] - 10/18/2024 6:11 PM EDT Department of Pharmacy Pharmacokinetics Progress Note Patient: Lani Zaragoza Room/Bed: 1040/A Assessment and Plan: Based upon renal function, intake/output, and drug level assessment and interpretation (steady state), I have changed the vancomycin dose and/or dosing interval to 1000 mg IV every 12 hours to start at 0000 on 5/2. 1250 mg bag hung 2 minutes after [...] further questions. Name: Yahir Munguia RPH Phone: [phone] Date/Time: 10/18/2024 6:14 PM * ROSALINDA Kwong - 10/18/2024 2:35 PM EDT Care Management Progress Note Per medical team, anticipated that patient will require termite control service representative care at discharge. SNF and familynotified. Family (son Rogelio) is agreeable to Medicaid process. Financial updated. Incapacity form has been completed by MD. Rosas to assist family with Medicaid application. SW [...] for any emerging needs. MISTY Mercer, ROSALINDA Yacht Builder Available by Secure Chat * Dillan Guzman MD - 10/18/2024 10:47 AM EDT I have independently seen and examined the patient on 10/18/24. I agree with the history, examination, assessment and plan as documented by the GLOVE PRINTER with my changes/additions added. Patient is a [...] all anticoagulation and antiplatelets - Atorvastatin - PT/OT/CHAIN HOOKER evaluation - Continue gabapentin for peripheral neuropathy [...] and other supportive care as per the GLOVE PRINTER note from the same day This patient [...] - 10/18/2024 9:46 AM EDT Acute Care CHAIN HOOKER Speech/Language/Cognitive Evaluation Best mode of Communication: spoken language (regular speech) Communication Strategies: -Provide repetitions as needed Discharge Recommendations: Based on the below outcome measures/assessment score(s) and CHAIN HOOKER clinicaljudgment, discharge destination recommendation is: Care Home Facility Barriers to discharge home: 1:1 assist needed for IADL's including medication management and finances Supporting factors for discharge setting: (Impaired language/reading skills for iADLs) Acute CHAIN HOOKER Outcomes Tracking Communicate basic wants and needs?: [...] pt ability to read letters/words s/p L FINISHED HARDWARE ERECTOR CVA, Ltemporal ICH. Pt reporting frustrations with anomia, and though able to eventually communicate wants/needs within evaluation, suspect delayed responses relating to reported word finding difficulties.Mild receptive deficits with higher level yes/no and command following. Limited assessment of reading/writing. 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 CHAIN HOOKER Existing Precautions/Restrictions: NPO Respiratory Status: O2 Sat [...] 0 Asthenia (A): 1 Strain (S): 0 CHAIN HOOKER Outcomes: The [place] Aphasia Screening Test (MAST) was developed as [...] Subscale: 36/50 Total Index Score: 74/90 Acute CHAIN HOOKER Goals Plan of Care by EVETTE Spann at 10/18/2024 9:47 AM Version 1 of 1 Problem: CHAIN HOOKER - Cognition Goal: Metacognition - Patient will identify at least x2-3 deficits related to medical condition andhow deficits will impact ability to return home with fading cues to improve safety and independence Outcome: Ongoing Problem: CHAIN HOOKER - Language Goal: Word Retrieval Strategies for [...] of session: none altered Needs in reach. CHAIN HOOKER Evaluation and Treatment Time Speech Eval - Sound Production W/Lang Comp and Exp 85093: 26 Upon discontinuation of Acute Care Speech Therapy Services or patient discharge from the hospital this note represents the current Speech Therapy Discharge Summary * Amelia Patrick, JENNIFER-MEDICAL RECEPTION SPECIALIST - 10/18/2024 9:05 AM EDT [facility] Inpatient Diabetes Consults - Progress Note- For provider publication director: QGENDA : TEAM 2 Assessment Uncontrolled type [...] FixedvsFlexible: Fixed: U100 Lispro Pens with Pen [place] MAX DAILY DOSE 60 tbd Units for [...] NPO Meds:: with meds Current Regimen: Basal: [id number] units Q1500 Prandial: none NPO Enteral feeding: [...] Hemorrhage Note IDENTIFYING INFORMATION Lani Zaragoza MR# [id number] 10/18/2024 HISTORY OF PRESENT ILLNESS Lani Zaragoza [...] parenchymal hemorrhage, likely hemorrhagic transformation of recent FINISHED HARDWARE ERECTOR territory infarct CTA brain/neck: Equivocal for left FINISHED HARDWARE ERECTOR occlusion. 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 [...] Temperooccipital ICH likely hemorrhagic transformation of left FINISHED HARDWARE ERECTOR stroke, ICH, mild mass effect - 10/17: [...] cannula (10/18 945) Flow (L/min): 3 (10/18 09) pH/PCO2/PO2/HCO3: 7.39/54/73/33 (10/18 0504) - Goal SpO2 >92%; wean FiO2 as tolerated - [id number], encourage pulmonary toileting - Duoneb Q6H PRN [...] < > 103 -- -- 102 CO2 -- -- 34* BUN 9 < > [...] (IDDSI 6) Liquid Thin (IDDSI 0) - [place] Swallow Screening Result: passed=cleared for oral intake - Monitor airway closely while still requiring intermittent BIPAP, okay for small snacks with supervision when BIPAP is off Bowel regimen: - Last Bowel Movement: (PROJECT MANAGER FINANCE) - Senna, miralax Stress ulcer prophylaxis: - [...] consulted for osteomyelitis in RLE Recent Labs 10/16/248 10/17/24 0044 10/18/24 0022 WBC 12.56* -- 9.62 [...] ID and Podiatry consulted - 10/18 OSH [facility] [employer] [facility] who did fixation Dr. Ramon Garcia DPM, [...] .Hypertension, Uncomplicated - Ischemic CVA, Location: Left FINISHED HARDWARE ERECTOR - hemorrhagic transformation ICU Checklist: [x] Assess [...] Emergency Contact: Norma Rosas ([facility]CPOA) Last updated: 10/18 family updated at bedside after rounds, NCCU spoke with pt's spouse at bedside [x] Get lines out [place]: inserted 10/16, removed 10/18 (indication: HTN) Beard: [...] the assigned neurocritical care provider (resident, fellow, GLOVE PRINTER, orPA) or page/call the corresponding number below NCC1 (Beds 0308-1021): Russ # [phone], pager #[phone] NCC2 (Beds 2148-5863, 12 Jing, and overflow): Ketchum #: [phone], pager #[phone] * Tony Deleon MD - 10/18/2024 6:17 [...] 4 (10/19 419) Oxygen Concentration (%): 40 (10/18 0400) I/O last 3 completed shifts: In: 3334.8 [I.V.:2384.3; IV Piggyback:950.5] Out: 2435 [Urine:2435] ICP: No data recorded WBC/Hgb/Hct/Plts: 9.62/11.2/34.5/259 (10/18 21) Na/K+/Phos/Mg/Ca: 143/3.9/3.4/2.0/-- (10/18 21-10/18 410) Bun/Creat/Cl/CO2/Glucose: 12/0.52/103/29/212 (10/18 21-10/18 0438) Imaging: moderate multifocal left temporo-occipital parenchymal hemorrhage. Associated white matter hypoattenuation, with multifocal loss of duffy-white differentiation, predominantly localizing to the left FINISHED HARDWARE ERECTOR territory. This is associated with overlying sulcal [...] clinical advancement; NCCU primary Please page [phone] ([phone]) with questions. 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 [...] Temperooccipital ICH likely hemorrhagic transformation of left FINISHED HARDWARE ERECTOR stroke, ICH, mild mass effect - 10/17: [...] SpO2 >92%; wean FiO2 as tolerated - [id number], encourage pulmonary toileting - Duoneb Q6H PRN [...] 14 TP 7.2 - DIET NPO with BTRs - [employer] | [employer] Swallow Screening Result: passed=cleared for oral intake - Keeping NPO for airway watch, on BIPAP, re-evaluate on 10/18/24 Bowel regimen: - Last Bowel Movement: (PROJECT MANAGER FINANCE) - Senna, miralax Stress ulcer prophylaxis: - [...] .Hypertension, Uncomplicated - Ischemic CVA, Location: Left FINISHED HARDWARE ERECTOR - hemorrhagic transformation ICU Checklist: [x] Assess [...] bedside after rounds [x] Get lines out Milagros: inserted 10/16, (indication: HTN) Beard: inserted 10/17, (indication: diuresis, fluid goals) Rectal tube: inserted , (indication:) Enteral access: inserted /, [ ] gastric; [ ] post-pyloric Central lines: Central Line LDAs Active Central Line Access Devices Name Placement date Placement time Site Days PICC Line - Single Lumen 04/29/25 2250 04/29/25 2250 -- less than 1 Central Line Indications: [...] the assigned neurocritical care provider (resident, fellow, GLOVE PRINTER, orPA) or page/call the corresponding number below NCC1 (Beds [id number]): Russ # [phone], pager #[phone] NCC2 (Beds 5886-4777, 12 Jing, and overflow): Russ #: [phone], pager #[phone] * ROSALINDA Kwong - 10/17/2024 3:44 PM EDT Reason for Consult: Discharge Planning Consulted By: Medical Team Level(s) of Care Discussed: SNF Patient and/or Soil Sampler's Preferred Geographic Area for Discharge: [address] Patient and/or Soil Sampler's Preference for Providers to Include? [facility] Patient and/or Soil Sampler's Preference for Providers to Exclude? N/A Patient and/or Soil Sampler's Discussion: Discussed referral process with the patient's son/1st alt OSCAR Mercado ([phone]). Who confirmedpatient was reserved with SNF [facility] at OSH. Rogelio is agreeable to have a placement referral initiated to the [facility]. MISTY Mercer, ELEMENTARY SCHOOL BAND DIRECTOR Yacht Builder Available by Secure Chat * Sarah Nichols, ELEMENTARY SCHOOL BAND DIRECTOR - 10/17/2024 3:36 PM EDT Discharge Planning Assessment Is the patient able to participate in the assessment?: No Explanation of why patient is unable to participate: AMS Care Management Plan IA completed with patient's son Rogelio at bedside. Patient with AMS. Anticipated discharge dispo to SNF - referral sent in [facility] [place], [place]. [facility] Family remains in agreement [...] documentation on file. Patient's sister Norma Warren ([phone]) is listed as HCPOA and patient's son Rogelio Zaragoza ([phone]) is listed as 1st alternate HCPOA. Initial Discharge Planning Expected Discharge Disposition: Care Home Facility Transportation Available for Discharge: Ambulance Anticipated DME: unknown at this time Anticipated Services at Discharge: Occupational Therapy, Physical Therapy, Outpatient follow up, Speech Therapy, Care Home Patient Assessment Completed: Initial Legal Next of Kin Does the patient have a Guardian?: No Spouse: No Adult Child(rory), List All Adult Children: Yes Name and Contact information: Rogelio Zaragoza ([phone]) Would you like to add additional adult children?: No Parent(s) - List All Living Parents: No Adult Sibling(s), List All Adult Siblings: Yes Name and Contact information: Norma Warren ([phone]) Would you like to add additional adult [...] Is the patient on Anticoagulation? : Yes [address] [place] [address] [address] [facility] [facility] [address] Living Environment and Support System Is the patient from a facility or senior care?: No Living Environment: House Patient Caregiving Responsibilities: [...] care for themselves at home? : Yes Payment Collector Does the patient or patient intake representative express financial concerns? : No MISTY Mercer, ROSALINDA Yacht Builder Available by Secure Chat * Sangita Valenzuela, [facility] - 10/17/2024 2:24 PM EDT Department of Pharmacy Admission Medication Reconciliation Note Patient: Lani Zaragoza Room/Bed: [facility]0/A I have reviewed the patient's home medication list with the following sources Patient's family member/caregiver (Son, sister) and Pharmacy (Name [facility] ). The home medication list status is: in-progress. This medication list has been updated based on pharamcy records carroll - patient's son and sister unable to confirm all home medications and medications allergies - please confirm with the patient when able. All changes to the home medication list have been updated inIHIS. Updated PROJECT MANAGER FINANCE Med List: Prior to Admission Medications Prescriptions [...] Patient's son unsure of any medication allergies. [facility] does not have any allergies on file for the patient and notably the patient has filled Augmentin twice in the past month (09/12/24 and 10/14/24) Eliquis last filled 06/19/25 for a 30 day supply - unclear if patient still taking Please feel free to contact me with any further questions. Name: Sangita Valenzuela [facility] Phone #: [phone] Date/Time: 10/17/2024 2:24 PM Time Spent: 20 minutes * EVETTE Spann - 10/17/2024 1:10 PM EDT Speech Language Pathology Attempt Note 10/17/2024 CHAIN HOOKER Therapy Completed: Attempted speech/lang/cog Attempted Reason: Patient is not medically optimized to tolerate therapy program (requiring BiPap) Received consult for swallow evaluation. However, patient passed [place] Swallow Screening by nursing.Per conversation with medical team, currently holding PO diet pending improved respiratory status. Goal for diet initiation following stable respiratory status. Swallow eval by CHAIN HOOKER will not be completed at this time unless this service notified of change in status or re-consult for swallow eval placed. No charge Santa Kuo MAJULIO-CHAIN HOOKER Pager: [phone] License: [email or web address] Email: [email or web address] Time In: 1310 Time Out: 1310 Total Visit Time: 0 minutes Total Treatment Time (skilled, billable minutes): 0 minutes * Cory Guzman APRN-MEDICAL RECEPTION SPECIALIST - 10/17/2024 11:55 AM EDT Neurovascular Stroke Service Intracerebral Hemorrhage Note IDENTIFYING INFORMATION Lani Zaragoza MR# [id number] 10/17/2024 HISTORY OF PRESENT ILLNESS Lani Zaragoza [...] parenchymal hemorrhage, likely hemorrhagic transformation of recent FINISHED HARDWARE ERECTOR territory infarct CTA brain/neck: Equivocal for left FINISHED HARDWARE ERECTOR occlusion. No significant carotid or vertebral artery stenosis MRI brain w and w/o: Pending TTE: Pending LDL 105, A1c 10.5 -Stroke Etiology (TOAST Criteria): Work up pending -Antiplatelet plan: not started due to acute hemorrhage -Statin therapy: Will need to start if found to have acute ischemic stroke -Blood Pressure goal: SBP <140 -Continue to hold Eliquis for now Hemorrhagic Stroke Core Measures -MAISS on admission 16 -Patient has been started [...] PT/OT/Speech and PM&R if indicated. Cory Guzman APRN-MEDICAL RECEPTION SPECIALIST 10/17/2024 12:50 PM VITAL SIGNS Temp: [97.3 [...] assessment and plan as documented by the GLOVE PRINTER with my changes/additions added. Patient is a [...] all anticoagulation and antiplatelets - Atorvastatin - PT/OT/CHAIN HOOKER evaluation - Continue home gabapentin for peripheral [...] and other supportive care as per the GLOVE PRINTER note from the same day This patient [...] MD Neurocritical Care Attending * Sangita Valenzuela, [facility] - 10/17/2024 10:35 AM EDT Department of Pharmacy Antimicrobial Stewardship Documentation Note Patient: Lani Zaragoza Room/Bed: 1040/A Restricted Antimicrobial Approval - Stain Maker Information about restricted antimicrobials at [facility] can be found here: Restricted [...] me with any further questions. Name: Sangita Juarez Valenzuela RPH Phone: [phone] Date/Time: 10/17/2024 10:36 AM * EVETTE Spann - 10/17/2024 8:01 AM EDT Speech Language Pathology Attempt Note 10/17/2024 Swallow POC Attempted Reason: Other (see comments) (pt passed [place] swallow screen, pending on clarification from medical team if formal swallow evaluation with CHAIN HOOKER warranted.) EVETTE Spann Time In: 800 Time Out: 08 Total Visit Time: 0 minutes Total Treatment Time (skilled, billable minutes): 0 minutes * Yahaira Alcocer OT - 10/17/2024 7:57 AM EDT Acute Occupational Therapy Evaluation Prior Gross Functional Mobility: independent Current AM-PAC score(s): CURRENT AM-PAC Activity Raw Score: 12 Based on the above AM-PAC score(s) and OT clinical judgment, discharge destination recommendation is: Care Home Facility Barriers to discharge home: Lack [...] mobilizing in community; 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 Vocation: [...] to directions, Difficulty dividing attention Memory: Decreased termite control service representative memory, Decreased short term memory Problem Solving: [...] LEs (right>left).) Mobility Assessment: Scooting Bridging Mobility [place] Level: Scooting/Bridging: dependent (less than 25% patient effort) Physical Assist: Scooting/Bridgin person assist Bed Features/Set-up: Scooting/Bridging: Flat Supine to Sit Mobility [place] Level: Supine->Sit: maximum assist (25% patient effort) [...] limited by cognition/comprehension. Sit to Supine Mobility [place] Level: Sit->Supine: maximum assist (25% patient effort) Physical Assist: Sit->Supine: 2 person assist Bed Features/Set-up: Sit->Supine: Flat, Use of bed rail Skilled Rationale: Cues for increased safety, Initiation and execution of task, Technique of activity, Tactile cues, Verbal cues, Hand placement, Sequencing, Positioning Skilled Intervention/Details: Sit->Supine: Cues for initiation/sequencing/safety, as well as assisting with upper trunk support and LEs. 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 Vocation: [...] 2-3/5 Mobility Assessment: Supine to Sit Mobility [place] Level: Supine->Sit: maximum assist (25% patient effort) Physical Assist: Supine->Sit: 2 person assist Bed Features/Set-up: Supine->Sit: Head of bed elevated Skilled Rationale: Verbal cues, Tactile cues, Hand placement, Technique of activity Sit to Supine Mobility [place] Level: Sit->Supine: maximum assist (25% patient effort) [...] Intervention/Details: retropulsive in sitting Outcome Score(s): CURRENT [facility] Basic Mobility Inpatient Short Form Turning over in bed: 1 - Total Assistance Moving from lying on back to sittin - Total Assistance Moving to and from bed to chair: 1 - Total Assistance Sitting/standing from chair: 1 - Total Assistance Walk in hospital room: 1 - Total Assistance Climbing 3-5 steps with a railin - Total Assistance CURRENT [facility] Mobility Raw Score: 6 CURRENT [facility] Mobility Functional Limitation: 100.00% Impaired in Basic Mobility Assessment & Plan: Patient was admitted for "Acute Left FINISHED HARDWARE ERECTOR CVA " (per chart review) and seen [...] duffy-white differentiation, predominantly localizing to the left FINISHED HARDWARE ERECTOR territory. This is associated with overlying sulcal [...] clinical advancement; NCCU primary Please page NS2 ([phone]) with questions. Principal Problem: Ischemic cerebrovascular accident [...] clinically appropriate. I have contacted Olivier Kaufman [facility] and received a verbal order to adjust [...] with any further questions. Name: Lawrence Ro [facility] Phone: [phone] Date/Time: 10/17/2024 5:09 AM * Eboni Jackson [facility] - 10/16/2024 8:53 PM EDT [...] further questions. Name: Eboni Jackson RP Phone: [phone] Date/Time: 10/16/2024 8:53 PM * Eboni Jackson RP - 10/16/2024 8:50 PM EDT Department of Pharmacy Outside Facility Transfer Note Patient: Lani Zaragoza Room/Bed: E040/E040 Patient has transferred from the Emergency [facility] at [facility] . I have contacted the facility and confirmed the following antimicrobial, antiepileptic, and anticoagulant medications were received by the patient prior to arrival at [facility]: Medications received: Both antibiotics initiated [...] of renal function. Will recheck here.) Per [facility] documentation, patient set up with [facility] for the above antibiotics x6 wks (EOT 11/22/24), withID follow up in 2 weeks and weekly labs. Confirmed with ZEN Loera at [facility], patient has NOT received any eliquis, other anticoagulant or antiplatelet, last reported eliquis was 10/09 due to surgeries Please feel free to contact me with any further questions. Name: Eboni Jackson RPH Phone #: [phone] Date/Time: 10/16/2024 8:50 PM [facility] Consult [facility]* Jacqueline Wiggins RN - [...] Resources: Link to diabetes education book in Martiniquais: DiabetesEducation.pdf Link to diabetes education book in Greenlandic: DiabetesEducation_SP.pdf Diabetes videos: https://www.Vyopta.net/osumychart/Content/StdDocument.aspx?UDSKSWF=acljwi571 0 Link to order the diabetes education books (you would login and select your location, select the disease, diabetes and then you will see the option to order the book): [email or web address]://[email or web address].[email or web address]/clinical/ pteducordering/Identity/Account/Login?ReturnUrl=/clinical/pteducordering Education Reviewed: [x]Regimen at discharge [x]Self-insulin [...] additional concerns arise. Thank you, Jacqueline Wiggins STEAM DISTRIBUTION SUPERVISOR-[facility] Pet Care Technician- Endocrinology, Diabetes & Metabolism * Jacqueline Wiggins [...] Resources: Link to diabetes education book in Martiniquais: DiabetesEducation.pdf Link to diabetes education book in Greenlandic: DiabetesEducation_SP.pdf Diabetes videos: https://www.Vyopta.net/osactiv8 Intelligenceychart/Content/StdDocument.aspx?UTELUWB=cjltyn419 0 Link to order the diabetes education books (you would login and select your location, select the disease, diabetes and then you will see the option to order the book): [email or web address]://apps.[facility]edu/clinical/ pteducordering/Identity/Account/Login?ReturnUrl=/clinical/pteducordering DM History: Type of Diabetes: Type [...] assess and treat hyperglycemia [x]Sick day rules http://www.innovativetherapeutics.org/wp-content/uploads//BTLU-BPE-Qvqb-I nnovative-Therapeutics.pdf [x]Who to contact in an emergency [...] DM self-management education Thank you, Jacqueline Wiggins APRN-[facility] Pet Care Technician- Endocrinology, Diabetes & Metabolism * Annika Sanders [...] Patient's son unsure of any medication allergies. [facility] does not have any allergies on file [...] discussed the critical finding/s of possible left FINISHED HARDWARE ERECTOR occlusion with Kristen Ramon MD on 10/16/2024 8:57 PM. I personally viewed and interpreted these images and I have reviewed and approved this report. STROKE HEAD-STROKE ALERT ONLY Final Result IMPRESSION: 1. Acute left temporo-occipital parenchymal hemorrhage, likely hemorrhagic transformation of recent FINISHED HARDWARE ERECTOR territory infarct. 2. Trace interventricular hemorrhage. 3. [...] this consult, please page the podiatry resident publication director with questions. Cosigned by Nakul Escoto DPM at 10/17/2024 6:22 PM EDT * Toni Greene, - 10/17/2024 3:16 PM EDTAssociated Order(s): IP CONSULT TO INFECTIOUS DISEASE INFECTIOUS DISEASE CONSULTATION REQUESTING PHYSICIAN: Dillan Guzman MD REASON FOR CONSULTATION: follow-up with [facility] from previous hospital CC: HISTORY OF PRESENT ILLNESS: Pt is a 69 y.o. male with PMHx of A-fib on Eliquis and DM (uncontrolled), was being treated an an OSH ([facility]) for a right heel wound infection [...] Patient's son unsure of any medication allergies. [facility] does not have any allergies on file [...] 12/0.46/100/27/252 (10/17 1306) Na/K+/Phos/Mg/Ca: 138/4.3/3.0/1.6/-- (10/16 2257-10/17 1305) Latest Reference Range & Units 10/16/24 20:45 [...] parenchymal hemorrhage, likely hemorrhagic transformation of recent FINISHED HARDWARE ERECTOR territory infarct. 2. Trace interventricular hemorrhage. 3. [...] 8 hours at this time (ASP Code: [id number]) Please have pharmacy help with dosing of above antibiotics. These recommendations were also relayed to the primary team. ID Team 5 will continue to follow. Please call with questions. Thank you Toni Greene DO Attending Physician - Infectious Diseases [phone] * Satish Odom MD - 10/17/2024 1:25 PM EDTAssociated Order(s): IP CONSULT TO ENDOCRINOLOGY - DIABETES [facility] Inpatient Diabetes Consults - Initial Consult Note- For provider publication director: QGENDA : TEAM 2 Assessment Uncontrolled type [...] [facility], Dr Guzman for Type 2 Diabetes [...] 14 10/16/2024 No results found for: "TSH", "Z9OUUCG", "T4FREE" Cardiac echo: EF = Results for [...] demonstrating L temporal ICH, possibly conversion of FINISHED HARDWARE ERECTOR infarct. NSGY consulted. Pt will be admitted to NCCU for close monitoring. Plan L Temporal ICH, possible hemorrhagic conversion of FINISHED HARDWARE ERECTOR infarct -Please admit to Neurocritical care (NCC), [...] Continuous telemetry -PT, OT, Speech and social service manager consults Staff: Dr. Mateo Moore, neurovascular fellow [...] Israel Schreiber MD documented [facility] Procedure note* AHSAN Junior - 10/16/2024 11:00 PM EDTAssociated Order(s): *ARTERIAL LINE Post-Procedure Diagnose(s): Nontraumatic cortical hemorrhage of left cerebral hemisphere *ARTERIAL LINE Procedure Date:: 10/17/2024 Start Time:: 23:00 EDT Performed by: AHSAN Junior Authorized by: AHSAN Junior Staff: Name of Valve Mechanic: Yahaira Ohara RN Consent Verbal consent obtained The procedure was performed in an emergent situation Consent given by: patient Risks and benefits were discussed. Risks discussed: arterial occlusion, arterial puncture, bleeding, limb ischemia and pseudoaneurysm Alternatives discussed: alternative treatment Indications Indications: hemodynamic monitoring Mullen Protocol Patient does not state understanding of [...] performed the procedure myself documented in this [facility]04-29-2025 Emergency department Note* Chiquita Rodriguez RN - [...] Intravenous As directed PRN Francie Grier APRN-MICHAEL Insulin regular (HUMULIN R;NOVOLIN R) injection Subcutaneous Q6H Francie Grier APRN-MEDICAL RECEPTION SPECIALIST 4 Unitsat 10/17/24 0001 And Dextrose 50% injection 7.5-25 g 7.5-25 g Intravenous As directed PRN AHSAN Junior And glucose (GLUTOSE) 40 % oral gel 1-2 Tube 1-2 Tube Oral As directed PRN AHSAN Junior fentaNYL Citrate (PF) (SUBLIMAZE) injection hydrALAZINE (APRESOLINE) injection 10 mg 10 mg Intravenous Q1H PRN Francie Grier APRN-MICHAEL Or hydrALAZINE (APRESOLINE) injection 20 mg 20 mg Intravenous Q1H PRN Francie Grier APRN-MICHAEL Labetalol (NORMODYNE) injection 10 mg 10 mg Intravenous Q1H PRN Francie Grier APRN-MEDICAL RECEPTION SPECIALIST 10 mg at10/16/24 2359 Or Labetalol (NORMODYNE) injection 20 mg 20 mg Intravenous Q1H PRN Francie A Croghan, STEAM DISTRIBUTION SUPERVISOR-MEDICAL RECEPTION SPECIALIST Magnesium sulfate 4 g in sterile water 50 ml premix IVPB 4 g Intravenous As directed PRN Francie Grier APRN-MICHAEL Meropenem (MERREM) 1 g in sodium chloride 0.9% (MB PLUS) 100 mL (total volume) IVPB 1 g GnblopoapicR2MKH Miriam Denson MD 33.3 mL/hr at 10/16/24 2322 Rate Verify at 10/16/24 2322 Metoprolol (LOPRESSOR) tablet 25 mg 25 mg Oral Q12H Francie Grier APRN-MEDICAL RECEPTION SPECIALIST 25 mg at 10/16/24 2358 niCARdipine in sodium chloride (CARDENE) 40 mg-0.83/200 ml premix IV infusion 0- 15 mg/hr Intravenous Continuous Kevin Soriano MD 62.5 mL/hr at 10/16/24 2322 12.5 mg/hr at 10/16/24 232 Potassium chloride 20 mEq in sterile water 50 ml premix IVPB 20 mEq Intravenous As directed PRN Francie Grier APRN-MEDICAL RECEPTION SPECIALIST Or Potassium chloride (K-DUR) tablet ER 40-80 mEq 40-80 mEq Oral As directed PRN Francie Grier, STEAM DISTRIBUTION SUPERVISOR-MEDICAL RECEPTION SPECIALIST Or Potassium Bicarb-Citric Acid (Effer-K) 20 MEQ effervescent tablets for oral solution 40-80 mEq 40-80 mEq Per NG tube As directed PRN Francie Grier APRN-MEDICAL RECEPTION SPECIALIST Or Potassium chloride 10 mEq in sterile water 100 ml premix IVPB 10 mEq Intravenous As directed PRN Francie Grier STEAM DISTRIBUTION SUPERVISOR-MEDICAL RECEPTION SPECIALIST Sodium chloride 0.9% IV solution 250 mL 250 mL Intravenous PRN Francie Grier STEAM DISTRIBUTION SUPERVISOR-MEDICAL RECEPTION SPECIALIST Sodium chloride 0.9% IV solution Intravenous Continuous Francie Grier APRN- MEDICAL RECEPTION SPECIALIST 1 mL/hr at 10/16/24 2324 New Bag at 10/16/24 2324 Sodium chloride 0.9% IV solution Intravenous Continuous Francie Grier APRN-MEDICAL RECEPTION SPECIALIST sodium phosphate 30 mmol in Sodium chloride 0.9%, with overfill 285 mL (total volume) IVPB 30 mmol Intravenous As directed PRN Francie Grier APRN-MEDICAL RECEPTION SPECIALIST Or sodium phosphate 45 mmol in Sodium chloride 0.9%, with overfill 290 mL (total volume) IVPB 45 mmol Intravenous As directed PRN Francie Grier, STEAM DISTRIBUTION SUPERVISOR-MEDICAL RECEPTION SPECIALIST Vancomycin HCl in NaCl (Vancocin) 1,500 mg [...] discussed the critical finding/s of possible left FINISHED HARDWARE ERECTOR occlusion with Kristen Ramon MD on 10/16/2024 8:[address] STROKE HEAD-STROKE ALERT ONLY Final Result IMPRESSION: 1. Acute left temporo-occipital parenchymal hemorrhage, likely hemorrhagic transformation of recent FINISHED HARDWARE ERECTOR territory infarct. 2. Trace interventricular hemorrhage. 3. [...] 0.9% IV solution ( Intravenous $$New Bag$$ 10/16/248) Sodium chloride 0.9% IV solution (has no [...] CHIEF COMPLAINT No chief complaint on file. KATHE Zaragoza is a 69 y.o. male who presents with concern for hemorrhagic stroke. Was inpatient at [facility] facility for foot wound/osteomyelitis. Had ex [...] acute life and/or limb threats): hemorrhagic stroke, director translation malignancy, lymphoma, mets EKG Interpretation Interpreted by emergency department physician Rhythm: atrial fibrillation - controlled Rate: normal [place]: normal Ectopy: premature ventricular contractions (unifocal) Conduction: [...] errors may have occurred. Kevin Soriano MD 10/16/241 * Chiquita Rodriguez RN - 10/16/2024 8:39 PM EDT BG 240. * Chiquita Rodriguez RN - 10/16/2024 8:34 PM EDT Pt arrives from outside facility, hardware to right foot for osteomyelitis, has been hospitalized since 10/09. Around 3443-8204 he developed aphasia, head ct showed hemorrhage with mass effect. Pt alert to self. BG en route . Pt on eliquis at home, unsure of last dose of eliquis. Hx of Afib. 2-3LPM NC. * Jose Juan Lyn RN - 10/16/2024 8:34 PM EDT Bed: E040 Expected date: 10/16/24 Expected time: 8:30 PM Means of arrival: Private Ambulance Comments: documented in this [facility]OS[facility] History and physical note* Elizabeth Bettencourt [...] ASSESSMENT AND PLAN Neuro: (10/16) Acute Left FINISHED HARDWARE ERECTOR CVA Left temporal ICH likely hemorrhagic transformation [...] Temperooccipital ICH likely hemorrhagic transformation of left FINISHED HARDWARE ERECTOR stroke, ICH, mild mass effect - 10/17: [...] SpO2 >92%; wean FiO2 as tolerated - [id number], encourage pulmonary toileting - / CXR: result [...] output data in the 24 hours ending 10/16/24 2210 - Daily Chem 10; electrolytes replaced per NCCU protocol Recent Labs 10/16/242044 SODIUM 136 POTASSIUM 3.8 CHLORIDE 99 CO2 29 BUN 9 CREATSERUM 0.52* GI/Nutrition: No Current Issues Recent Labs 10/16/242044 ALBUMIN 3.5 BILIDIRECT 0.2 BILITOTAL 0.6 ALKPHOS 92 ALT 13 AST 14 TP 7.2 - DIET NPO WITHOUT meds - [place] Swallow Screening Result: failed=NPO Bowel regimen: - [...] .Hypertension, Uncomplicated - Ischemic CVA, Location: Left FINISHED HARDWARE ERECTOR - hemorrhagic transformation ICU Checklist: [x] Assess [...] the assigned neurocritical care provider (resident, fellow, GLOVE PRINTER, orPA) or page/call the corresponding number below NCC1 (Beds [phone]): Russ # [phone], pager #[phone] NCC2 (Beds [id number], 12 Jing, and overflow): Russ #: [phone], pager #[phone] documented in this encounterU [facility]04-29-[facility]04[facility]23-[facility] [facility]04-22-2025 History and physical note [facility] Medical Records Department [address] [place] [address] H&P Exam - Hospitalist 10/09/24 1552 MR#: [id number] Acct: [id number] Name: LANI ZARAGOZA Rep #:[id number] : 1955 69 From: Chula Antunez MD PCP: Dr. Bernabe Reese MD Status:AD M IN Location: MS3 YV228-3 HPI - General General Date of Admission: 10/09/24 Date of Service: 10/09/24 Chief Complaint: R diabetic foot ulcer HPI Narrative LANI ZARAGOZA, is a 69-year-old male with a history of diabetes, hypertension, sleep apnea, paroxysmal atrial fibrillation A-fib who presented [facility] ED 2024 from wound clinic for [...] is compliant with his BiPAP at home. [facility] Medical History Chronic cellulitis Streptococcal bacteremia Hyperglycemia [...] PO QHS BP 10/01/20 04/2 07/14 History aqwfnklb-aw-ytvkp 300 mcg-K 60 1 tablet PO DAILY [...] RDW Std Deviation 37.2, RDW Coeff of Jdaa 12.8, Plt Count 243, MPV 9.8, Immature Gran % (Auto) 0.400, Neut% (Auto) 82.8 H, Lymph % (Auto) 9.2 L, Grainger % (Auto) 6.5, Eos % (Auto) 0.7, [...] Right basilar atelectasis or pneumonia. Reading Location: [facility] Foot X-Ray 10/09/24 13:45 IMPRESSION: No obvious radiographic evidence of osteomyelitis. However, if clinical suspicion remains high, further evaluation with 3 phase bone scan or MRI is recommended. Reading Location: [facility] Assessment & Plan Assessment/Plan (1) [...] Reese MD; Dr. Chula Antunez MD~ Signed [facility]04-22-2025 Discharge summary [facility] Medical Records Department [address] [place] [address] Emergency Department Summary 10/09/24 MR#: [id number] Acct: [id number] Name: LANI ZARAGOZA Rep #:[id number] : [...] A-fib on Eliquis last dose this morning. [facility] Medical History Chronic cellulitis Streptococcal [...] mg tablet 5 mg PO QHS BP 10/01/202 07/14 History vlcfwimw-ut-wjmou 300 mcg-K 60 1 tablet PO DAILY [...] meropenem and vancomycin. 1415: I spoke with in flight refueling manager Dr. Garcia, discussed patient A-fib on Eliquis. [...] Hospitalist, podiatry This note was generated with [employer] dictation software. It may contain incorrectwords, spelling, [...] 82.8 H Lymph % (Auto) 9.2 L Grainger % (Auto) 6.5 Eos % (Auto) 0.7 [...] (Auto) Neut % (Auto) Lymph % (Auto) Grainger % (Auto) Eos % (Auto) Baso % [...] Right basilar atelectasis or pneumonia. Reading Location: [facility] Foot X-Ray 10/09/24 13:45 IMPRESSION: No obvious radiographic evidence of osteomyelitis. However, if clinical suspicion remains high, further evaluation with 3 phase bone scan or MRI is recommended. Reading Location: [facility] Discharge Plan Triage Chief Complaint: Wound ED Provider: Logan Gifford Dx/Rx/DC Orders Clinical Impression: Diabetic ulcer of right heel, Atrial fibrillation, Chronic anticoagulation, Acidosis, lactic Prescriptions: No Action insulin glargine U-300 conc [Toujeo Max U-300 SoloStar] 300 unit/mL (3 mL) insulin pen 25 unit subcut QHS Patient Comments: pt states [facility] and unsure when he last had [...] 5 MG tablet 5 mg PO QHS nc-ugf-cxzsl-K1-wsvjrhm-gccohu 1 EACH tablet 1 tablet PO DAILY [...] MD [Primary Care Provider] - Print Language: Martiniquais Disposition Disposition: Acute Care Hospital [facility] What to do if you have Problems For any increased pain, shortness of breath, bleeding, nausea or vomiting, chestpain, or any unexpected problems, contact your Primary Care Provider. Call [facility] ([phone]) or report tothe closest Emergency Room. Call 911 if necessary. 10/09/24 1551 Cosigner Signature (if applicable): CC: Dr. Bernabe Reese MD ~ Signed [facility]04-22-2025 Radiology Diagnostic study note [facility] Imaging Services [address], [place] [id number] Foot min 3 Views MR#: [id number] Acct: [id number] Name: LANI ZARAGOZA Rep #: [id number] : 1955 M 69 From: Dasha Gifford MD PCP: Dr. Bernabe Reese MD Status: RE G ER Study:Foot min 3 Views Date of Exam: Exam# [id number] Ordering Dr: Logan Gifford DO EXAM: XR [...] scan or MRI is recommended. Reading Location: [facility] CC: Dr. Bernabe Reese MD; Dr. Logan Gifford DO ~ Nail Professional: Signed [facility]04-22-2025 Radiology Diagnostic study note [facility] Imaging Services [address] [place] [address] [id number] Chest 1 View (Portable) MR#: [id number] Acct: [id number] Name: LANI ZARAGOZA Rep #: [id number] : 1955 M 69 From: Dasha Gifford MD PCP: Dr. Bernabe Reese MD Status: RE G ER Study:Chest 1 View (Portable) Date of Exam: 10/09/24 Exam# [id number] Ordering Dr: Logan Gifford DO EXAM: XR Chest, 1 View CLINICAL INDICATION: PREOP TECHNIQUE: Frontal view of the chest. COMPARISON: No relevant prior studies available. FINDINGS: LUNGS AND PLEURAL SPACES: Right basilar atelectasis or pneumonia. No pneumothorax. HEART: Unremarkable. No cardiomegaly. MEDIASTINUM: Unremarkable. Normal mediastinal contour. BONES/JOINTS: Unremarkable. No acute fracture. RAD/Chest 1 View (Portable) IMPRESSION: Right basilar atelectasis or pneumonia. Reading Location: [facility] CC: Dr. Bernabe Reese MD; Dr. Logan Gifford DO ~ Nail Professional: Signed [facility]04-22-2025 Discharge summary Author Logan Gifford [facility] Note Date/Time 2024 3:5 1pm [facility] Medical Records Department [address] [place] [address] Emergency Department Summary 10/09/24 MR#: [id number] Acct: [id number] Name: LANI ZARAGOZA Rep #:[id number] : [...] fib on Eliquis last dose this morning. [facility] Medical History Chronic cellulitis Streptococcal [...] mg PO QHS BP 10/01/20 04/07/14 History ctqdjcwz-ua-mehnz 300 mcg-K 60 1 tablet PO DAILY [...] meropenem and vancomycin. 1415: I spoke with in flight refueling manager Dr. Garcia, discussed patient A-fib on Eliquis. [...] Hospitalist, podiatry This note was generated with [employer] dictation software. It may contain incorrectwords, spelling, [...] 82.8 H Lymph % (Auto) 9.2 L Grainger % (Auto) 6.5 Eos % (Auto) 0.7 [...] (Auto) Neut % (Auto) Lymph % (Auto) Grainger % (Auto) Eos % (Auto) Baso % [...] Right basilar atelectasis or pneumonia. Reading Location: [facility] Foot X-Ray 10/09/24 13:45 IMPRESSION: No obvious radiographic evidence of osteomyelitis. However, if clinical suspicion remains high, further evaluation with 3 phase bone scan or MRI is recommended. Reading Location: [facility] Discharge Plan Triage Chief Complaint: [...] 5 MG tablet 5 mg PO QHS ag-loh-shxcb-N8-kgrrjqm-ikndlq 1 EACH tablet 1 tablet PO DAILY apixaban 5 mg tablet 5 mg PO BID gabapentin 800 mg tablet 800 mg PO .COMPLEX PRN (Reason: neuropathy) Rx Instructions: 800 mg orally 3-4 times daily PRN; (DME) pen needle, diabetic 32 gauge x /" needle See Rx Instructions .Route Qty: 1200 0RF Rx Instructions: As directed metoprolol tartrate 50 mg tablet 50 mg PO BID amoxicillin-pot clavulanate 875-125 mg tablet 1 tab PO BID Primary Care Provider: Bernabe Reese Referrals: Bernabe Reese MD [Primary Care Provider] - Print Language: Martiniquais Disposition Disposition: Acute Care Hospital [facility] What to do if you have Problems For any increased pain, shortness of breath, bleeding, nausea or vomiting, chestpain, or any unexpected problems, contact your Primary Care Provider. Call [facility] ([phone]) or report to the closest Emergency Room. Call 911 if necessary. 10/09/24 1551 <Electronically signed by Logan Downs> Cosigner Signature (if applicable): CC: Dr. Bernabe Reese MD ~ Signed [facility] Work Phone: 1(213) 684-250204-22-2025 Evaluation note* Diagnosis Onset Date Resolution Status [...] ulcer of right heel acute 2024 3:52pm [facility] Work Phone: 1(991) 991-307904-22-2025 Evaluation note* Diagnosis Onset Date Resolution Status [...] necrosis of muscle chronic November 13 10:30am [facility] Work Phone: 1(136) 523-712404-22-2025 Evaluation note* Diagnosis Onset Date Resolution Status [...] necrosis of muscle chronic December 04 10:00am [facility] Work Phone: 1(468) 721-612704-22-2025 Evaluation note* Diagnosis Onset Date Resolution Status [...] necrosis of muscle chronic December 11 10:00am [facility] Work Phone: 1(954) 421-429104-15-2025 Evaluation note* Diagnosis Onset Date Resolution Status [...] fat layer exposed chronic October 02 10:15am [facility] Work Phone: 1(174) 347-440812-04-2023 Progress note Author Ralph Mancini [facility] May 23, 2023 6:40pm Note Date/Time May 23, 2023 6 :29pm [facility] Medical Records Department [address] [place] [address] Progress Note 05/23/23 1823 MR#: [id number] Acct: [id number] Name: LANI ZARAGOZA Rep #:[id number] : 1955 67 From: Ralph barreto DPM PCP: Dr. Bernabe Reese MD Status:AD M IN Location: [place] [address] Subjective Subjective Patient seen and evaluated this [...] % (Auto) 67.7, Lymph % (Auto) 21.5, Grainger% (Auto) 6.8, Eos % (Auto) 3.0, Baso [...] mellitus with diabetic polyneuropathy: QUALIFIERS: Diabetes mellitus termite control service representative insulin use: unspecified group home insulin use status Qualified Code(s): E11.42 - [...] worn at all times. Encouraged continuing with commissions specialist for diabetic care upon discharge. Medicine team currently following for medical management, they are greatly appreciated. Infectious disease following for management of antibiotics, they are greatly appreciated. Infectious disease plan to discharge on oral clindamycin. Patient is set to be discharged home tonight on oral antibiotics. He will follow-up with primary care following discharge and is recommended to continue to follow with commissions specialist for continued diabetic care and lower extremity care. He is agreeable to this. Ralph Mancini Jr. D.P.M. [facility] [phone] 05/23/23 1840 <Electronically signed by Ralph Mancini DPM> Ralph Mckeon Cosigner Signature (if applicable): CC: ~ Signed [facility] Work Phone: 1(972) 450-369312-04-2023 Consult note Author Nakul Fowler [facility] May 23, 2023 1:53pm Note Date/Time May 23, 2023 1 :53pm [facility] Medical Records Department [address] [place] [address] Counseling Note - Pharmacy 05/23/23 1353 MR#: [id number] Acct: [id number] Name: LANI ZARAGOZA Rep #:[id number] : 1955 67 From: Nakul Fowler PCP: Dr. Bernabe Reese MD Status:AD M IN [id number] has performed discharge medication reconciliation [...] mg PO QHS Check with primary doctor 10/16/14 metformin 1,000 mg tablet 1,000 mg PO BIDCM diabetes 04/04/14 amlodipine 5 mg tablet 5 mg PO QHS BP 10/01/20 bxyhowqx-mw-shvqd 300 mcg-K 60 mcg-lycop 600 mcg-lutein 300 [...] Signature (if applicable): Date CC: ~ Signed [facility] Work Phone: 1(278) 662-446512-04-2023 Discharge summary Author Julee Spain [facility] May 23, 2023 1:30pm Note Date/Time May 23, 2023 1 :19pm [facility] Medical Records Department [address] [place] [address] Discharge Summary 05/23/23 1318 MR#: [id number] Acct: [id number] Name: LANI ZARAGOZA Rep #:[id number] : 1955 67 From: Julee Spain DO PCP: Dr. Bernabe Reese MD Status:AD M IN Location: MS3 HV727-0 Providers Date of Admission: 05/21/23 Date of [...] tablet 5 mg PO QHS BP 10/01/20 fnvujeih-gz-ciewq 300 mcg-K 60 mcg-lycop 600 mcg-lutein 300 [...] who presented to the emergency department at [facility] on 05/21/2023 with shortness of breath, generalized weakness, and worsening right lower extremity edema. Upon presentation he had no conversational dyspnea and did not appear to be in any acute distress. He was satting well on room air with no increased work of breathing at time of evaluation the emergency department. 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 He reported over the last few days [...] % (Auto) 67.7, Lymph % (Auto) 21.5, Grainger% (Auto) 6.8, Eos % (Auto) 3.0, Baso [...] 5 MG tablet 5 mg PO QHS in-bgq-zvmjc-S3-arlwdsk-uoapla 1 EACH tablet 1 tablet PO DAILY [...] Self Care Charges/Coding Visit Charges Inpatient E&M: 94786 Disch Hosp >30min 05/23/23 1330 <Electronically signed by Julee Spain DO> Cosigner Signature (if applicable): CC: Dr. Bernabe Reese MD; Dr. Julee Spain DO~ Signed [facility] Work Phone: 1(884) 501-288312-04-2023 Consult note Author Bridger Martinez [facility] May 23, 2023 10:21am Note Date/Time May 23, 2023 1 0:21am [facility] Medical Records Department [address] [place] [address] Consultation - Infectious Dx 05/23/23 1018 MR#: [id number] Acct: [id number] Name: LANI ZARAGOZA Rep #:[id number] : 1955 67 From: Bridger Martinez MD PCP: Dr. Bernabe Reese MD Status:AD M IN Location: [facility] YH374-7 Assessment & Plan Assessment/Plan (1) Cellulitis of [...] with underlying lymphedema of the right leg. [facility] Medical History (Updated 05/21/23 @ 15:[address] Edward Luevano DO) Alcohol use Ambulates with cane Anxiety Arthritis Atrial fibrillation Bilateral leg edema BiPAP (biphasic positive airway pressure) dependence [facility] Cardiology follow-up encounter Chronic anticoagulation Chronic [...] QHS BP 10/01/20 [History Last Taken 05/20/23] hmxwujkf-zu-wwtbc 300 mcg-K 60 mcg-lycop 600 mcg-lutein 300 [...] % (Auto) 67.7, Lymph % (Auto) 21.5, Grainger% (Auto) 6.8, Eos % (Auto) 3.0, Baso [...] Martinez MD> Cosigner Signature (if applicable): CC: DPJoyce Root; Dr. Haily Santos, DO; Dr. Bernabe Reese MD; Dr. Gregorio Mccarthy MD~ Signed [facility] Work Phone: 1(637) 831-377712-03-2023 Progress note Author Julee Grabiel [facility] May 22, 2023 12:24pm Note Date/Time May 22, 2023 8 :57am [facility] Medical Records Department [address] [place] [address] Progress Note - Hospitalist 05/22/23 0849 MR#: [id number] Acct: [id number] Name: LANI ZARAGOZA Rep #:[id number] : 1955 67 From: Julee Spain DO PCP: Dr. Bernabe Reese MD Status:AD M IN Location: [facility] CQ274-8 Reason for Visit Reason for Visit: Shortness of breath/weakness/right lower extremity swelling Subjective Subjective Patient is a super morbidly obese white male who presented to the emergency department at [facility] on 05/21/2023 with shortness of breath, generalized weakness, and worsening right lower extremity edema. Upon presentation he had no conversational dyspnea and did not appear to be in any acute distress. He was satting well on room air with no increased work of breathing. 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 He reported over the last few days [...] (Auto) 74.4 H, Lymph % (Auto) 16.0 L,Grainger % (Auto) 7.7, Eos % (Auto) 1.0, [...] Clarity Clear, Urine pH 5.0, Ur Specific [place] 1.020, Urine Protein 30 H, Urine Glucose [...] -Full code Charges/Coding Visit Charges Inpatient E&M: 93933 Subs Hosp L3 05/22/23 1224 <Electronically signed by Julee Spain DO> Cosigner Signature (if applicable): CC: ~ Signed [facility] Work Phone: 1(331) 308-477812-03-2023 Consult note Author Albert Root [facility] May 22, 2023 11:20am Note Date/Time May 22, 2023 1 0:41am [facility] Medical Records Department [address] [place] [address] Consultation 05/22/23 1041 MR#: [id number] Acct: [id number] Name: LANI ZARAGOZA Rep #:[id number] : 1955 67 From: Albert Root DPM PCP: Dr. Bernabe Reese MD Status:AD M IN Location: [place] [address] HPI Consult Data Date of Consult: 05/22/23 HPI Narrative HPI Narrative: LANI ZARAGOZA, is a 67 M who presents [facility] Medical History (Updated 05/21/23 @ 15:[address] Edward Luevano DO) Alcohol use Ambulates with cane Anxiety Arthritis Atrial fibrillation Bilateral leg edema BiPAP (biphasic positive airway pressure) dependence [facility] Cardiology follow-up encounter Chronic anticoagulation Chronic [...] QHS BP 10/01/20 [History Last Taken 05/20/23] brhnssdv-cl-fvbag 300 mcg-K 60 mcg-lycop 600 mcg-lutein 300 [...] (Auto) 74.4 H, Lymph % (Auto) 16.0 L,Grainger % (Auto) 7.7, Eos % (Auto) 1.0, [...] Clarity Clear, Urine pH 5.0, Ur Specific Gunnison 1.020, Urine Protein 30 H, Urine Glucose [...] No acute osseous abnormalities. Electronically Signed: Dalton V. ZarinadeaDO graciela at 20:49 EST , 05/22/23 1041 <Electronically signed by Albert Root DPJoyce> Cosigner Signature (if applicable): CC: DPJoyce Root; Dr. Haily Santos, ; Dr. Bernabe Reese MD~ Signed ADDENDUM by ESAU Root on 05/22/23 at 1120 Addendum CC: [...] (if applicable): cc: ESAU Root; Dr. Haily Santos DO; Dr. Bernabe Reese MD ~* Signed [facility] Work Phone: 1(110) 653-961712-03-2023 Consult note Author Bernabe Milan [facility] May 21, 2023 10:34pm Note Date/Time May 21, 2023 1 0:34pm [facility] Medical Records Department [address] [place] [address] Pharmacokinetic/Renal -Consult 05/21/232232 MR#: [id number] Acct: [id number] Name: LANI ZARAGOZA Rep #:[id number] : 1955 67 From: Bernabe Forbes od PCP: Dr. Bernabe Reese MD Status:AD M IN Y Location: [facility] MT460-1 Consult Antibiotic Management Pharmacy has been consulted [...] Signature (if applicable): Date CC: ~ Signed [facility] Work Phone: 1(948) 756-545512-02-2023 History and physical note Author Haily Santos [facility] May 21, 2023 5:51pm Note Date/Time May 21, 2023 4 :01pm [facility] Medical Records Department [address] [place] [address] H&P Exam - Hospitalist 05/21/23 8620 MR#: [id number] Acct: [id number] Name: LANI ZARAGOZA Rep #:[id number] : 1955 67 From: Haily ceron DO PCP: Dr. Bernabe Reese MD Status:AD M IN Location: MS3 QX501-4 HPI - General General Date of Admission: 05/21/23 Date of Service: 05/21/23 Chief Complaint: Shortness of breath, weakness, RLE swelling HPI Narrative LANI ZARAGOZA, is a 67 M who presented to [facility] ED on 05/21/2023 from home with multiple concerns including shortness of breath, generalized weakness and worsening right lower extremity swelling. Patient seenat bedside in the ED. Laying comfortably in bed, conversing normally, no acute distress. Patient is satting well on room air, no increased work of breathing noted. Patient lives at home by himself. 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 States over the last few days he [...] vomiting. No other acute concerns this time. [facility] Medical History (Updated 05/21/23 @ 15:[address] Edward Luevano DO) Alcohol use Ambulates with cane Anxiety Arthritis Atrial fibrillation Bilateral leg edema BiPAP (biphasic positive airway pressure) dependence [facility] Cardiology follow-up encounter Chronic anticoagulation Chronic [...] QHS BP 10/01/20 [History Last Taken 05/20/23] odmlknnd-db-uweuq 300 mcg-K 60 mcg-lycop 600 mcg-lutein 300 [...] (Auto) 74.4 H, Lymph % (Auto) 16.0 L,Grainger % (Auto) 7.7, Eos % (Auto) 1.0, [...] Clarity Clear, Urine pH 5.0, Ur Specific [place] 1.020, Urine Protein 30 H, Urine Glucose [...] is a 67-year-old male who presented to [facility] ED on 05/21/2023 from home with [...] comfortably. ? Admit under inpatient status to [facility]. Will obtain ABG with patient on roomair to assess for OHS. Continue home BiPAP at night. Incentive spirometry ordered. 2. Generalized weakness, debility, super morbid obesity BMI 59 on admit. Patient lives at home by himself. Was previously hospitalizedin 11/2022 for a UTI, was discharged to SNF at the [facility] at that time. 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 Charges/Coding Visit Charges Inpatient E&M: 87845 Init Hosp L2 05/21/23 1751 <Electronically signed by Haily Santos DO> Cosigner Signature (if applicable): CC: Dr. Haily Santos DO; Dr. Bernabe Reese MD~ Signed [facility] Work Phone: 1(909) 229-583706-16-[address] Zimmerman [facility] December 03, 2022 9:51am Note Date/Time December 03, 2022 9:46 am [facility] Medical Records Department [address] [place] [address] Transfer to [facility] MR#: [id number] Acct: [id number] Name: LANI ZARAGOZA Rep #:[id number] : 1955 67 From: Hilda Zimmerman MD PCP: Dr. Bernabe Reese MD Status:AD M IN Certification of patient admission REQUIRED AT TIME OF ADMISSION. I CERTIFY THAT POST-HOSPITAL ECF SERVICES ARE REQUIRED TO BE GIVEN ON AN IN-PATIENT BASIS BECAUSE OF THE ABOVE NAMED PATIENT'S NEED FOR CORRECTION CARE ON A CONTINUING BASIS FOR THE [...] to d/c. Recommend PCP referral to [facility] Clinic for ongoing education and follow-up. Discharge Plan Admission Admit Date/Time: 11/28/22 12:13 Primary Reason for Your Visit: UTI Attending Provider: Hilda Zimmerman Primary Care Provider: Bernabe Reese Consulting Providers: Gregorio Mccarthy Patient Instructions: Urinary Tract Infections in Men [...] 5 MG tablet 5 mg PO QHS xkculabo-xjh-NX-lycopen-lutein 1 EACH tablet 1 tablet PO DAILY [...] in before D/C Order can be placed): Care Home Facility 12/03/22 0951 <Electronically signed by Hilda Zimmerman MD> Cosigner Signature (if applicable): CC: Dr. Bernabe Reese MD; Dr. Gregorio Mccarthy MD ~ [facility] Work Phone: 1(506) 768-143306-15-[address] Zimmerman [facility] December 02, 2022 4:55pm Note Date/Time December 01, 2022 11:4 8am [facility] Medical Records Department [address] [place] [address] Progress Note 12/01/22 1143 MR#: [id number] Acct: [id number] Name: LANI ZARAGOZA Rep #:[id number] : 1955 67 From: Hilda Zimmerman MD PCP: Dr. Bernabe Reese MD Status:AD M IN Location: [place] [address] Subjective Subjective Patient seen and examined. He [...] 70.4 H, Lymph % (Auto) 18.9 L, Grainger % (Auto) 8.8, Eos % (Auto) 1.2, [...] code * Charges/Coding Visit Charges Inpatient E&M: 77188 Subs Hosp L2 12/02/22 5015 <Electronically signed by Hilda Zimmerman MD> Hilda Zimmerman MD Cosigner Signature (if applicable): CC: ~ Signed [facility] Work Phone: 1(450) 255-355406-15-[address] Zimmerman [facility] December 02, 2022 4:55pm Note Date/Time December 02, 2022 1:26 pm [facility] Medical Records Department [address] [place] [address] Progress Note 12/02/22 1313 MR#: [id number] Acct: [id number] Name: LANI ZARAGOZA Rep #:[id number] : 1955 67 From: Hilda Zimmerman MD PCP: Dr. Bernabe Reese MD Status:AD M IN Location: [facility] [id number]- 1 Subjective Subjective Patient seen and examined. [...] 71.8 H, Lymph % (Auto) 17.4 L, Grainger % (Auto) 8.0, Eos % (Auto) 1.5, [...] precert obtained. Charges/Coding Visit Charges Inpatient E&M: 12551 Subs Hosp L2 12/02/22 2776 <Electronically signed by Hilda Zimmerman MD> Hilda Zimmerman MD Cosigner Signature (if applicable): CC: ~ Signed [facility] Work Phone: 1(873) 250-506606-15-[address] Mccarthy [facility] December 02, 2022 11:29am Note Date/Time December 02, 2022 11:2 9am [facility] Medical Records Department [address] [place] [address] Progress Note - Infect Disease 12/02/22 1128 MR#: [id number] Acct: [id number] Name: LANI ZARAGOZA Rep #:[id number] : 1955 67 From: Gregorio boston MD PCP: Dr. Bernabe Reese MD Status:AD M IN Location: [place] [address] Physical Exam Narrative Feeling about the same [...] Cosigner Signature (if applicable): CC: ~ Signed [facility] Work Phone: 1(772) 407-330806-14-2023 Consult note Author Lawrence Rodriguez [facility] December 01, 2022 9:44pm Note Date/Time December 01, 2022 5:34 am [facility] Medical Records Department [address] [place] [address] Pharmacokinetic/Renal -Consult 12/01/22 0533 MR#: [id number] Acct: [id number] Name: LANI ZARAGOZA Rep #:[id number] : 1955 67 From: Saqib Dickey PCP: Dr. Bernabe Reese MD Status:AD M IN Y Location: [place] [address] Consult Pharmacy has been consulted to manage [...] Date Lawrence Rodriguez MD CC: ~ Signed [facility] Work Phone: 1(554) 215-890906-14-[address] Mccarthy [facility] December 01, 2022 1:49pm Note Date/Time December 01, 2022 1:49 pm [facility] Medical Records Department [address] [place], [place] [address] [address] Progress Note - Infect Disease 12/01/221347 MR#: [id number] Acct: [id number] Name: LANI ZARAGOZA Rep #:[id number] : 1955 67 From: Gregorio boston MD PCP: Dr. Bernabe Reese MD Status:AD M IN Location: [place] [address] Physical Exam Narrative Feeling ok, some leg [...] On ceftriaxone, will stop vanc. Will follow 12/01/221348 <Electronically signed by Gregorio Mccarthy MD> Cosigner Signature (if applicable): CC: ~ Signed [facility] Work Phone: 1(997) 135-713606-14-2023 Progress note Author Lawrence Rodriguez [facility] December 01, 2022 7:45am Note Date/Time December 01, 2022 7:44 am [facility] Medical Records Department [address] [place] [address] Progress Note - Hospitalist 12/01/22 0743 MR#: [id number] Acct: [id number] Name: LANI ZARAGOZA Rep #:[id number] : 1955 67 From: Lawrence Rodriguez MD PCP: Dr. Bernabe Reese MD Status:AD M IN Location: [place] [address] Hospitalist Note Vancomycin was started overnight due to erythematous extensive swelling in the lower extremity on left side - concerning for cellulitis. Would appreciate ID comments regarding need for ongoing Vanc vs resuming with ceftriaxone alone. 12/01/2245 <Electronically signed by Lawrence Rodriguez MD> Cosigner Signature (if applicable): CC: ~ Signed [facility] Work Phone: 1(705) 563-246006-13-[address] Zimmerman [facility] November 30, 2022 4:38pm Note Date/Time November 29, 2022 3:19 pm [facility] Medical Records Department [address] [place] [address] Progress Note 11/29/22 1512 MR#: [id number] Acct: [id number] Name: LANI ZARAGOZA Rep #:[id number] : 1955 67 From: Hilda Zimmerman MD PCP: Dr. Bernabe Reese MD Status:AD M IN Location: [place] [address] Subjective Subjective Patient seen and examined. He [...] 82.7 H, Lymph % (Auto) 11.4 L, Grainger % (Auto) 5.1, Eos % (Auto) 0.0, [...] confused. * Charges/Coding Visit Charges Inpatient E&M: 88655 Subs Hosp L3 11/30/22 1638 <Electronically signed by Hilda Zimmerman MD> Hilda Zimmerman MD Cosigner Signature (if applicable): CC: ~ Signed [facility] Work Phone: 1(912) 379-573006-13-2023 Progress note [facility] November 30, 2022 4:38pm Note Date/Time November 30, 2022 10:3 5am [facility] Medical Records Department [address] [place] [address] Progress Note 11/30/22 1033 MR#: [id number] Acct: [id number] Name: LANI ZARAGOZA Rep #:[id number] : 1955 67 From: Hilda Zimmerman MD PCP: Dr. Bernabe Reese MD Status:AD M IN Location: [place] [address] Subjective Subjective Patient seen and examined. He [...] % (Auto) 68.4, Lymph % (Auto) 19.2, Grainger % (Auto) 9.9, Eos % (Auto) 1.6, [...] Zimmerman Referring Physician: Bernabe Reese Performed By: Melissa Angel RVT, RDCS and Student Rhythm Strip Rhythm Strip: A-fib [...] code * Charges/Coding Visit Charges Inpatient E&M: 97746 Subs Hosp L2 11/30/22 1638 <Electronically signed by Hilda Zimmerman MD> Hilda Zimmerman MD Cosigner Signature (if applicable): CC: ~ Signed [facility] Work Phone: [phone]) [phone] Mccarthy [facility] November 30, 2022 10:52am Note Date/Time November 30, 2022 10:5 2am [facility] Medical Records Department [address] [place] [address] Consultation - Infectious Dx 11/30/22 1047 MR#: [id number] Acct: [id number] Name: LANI ZARAGOZA Rep #:[id number] : 1955 67 From: Gregorio boston MD PCP: Dr. Bernabe Reese MD Status:AD M IN Location: [place] [id number] Assessment & Plan Assessment/Plan (1) Acute [...] performed and neg except as noted above. [facility] Medical History Alcohol use Ambulates with cane [...] QHS BP 10/01/20 [History Last Taken 12/03/20] quuektuz-xfr-wzkho acid 300 mcg-lycopene 600 mcg-lutein 300 mcg [...] Max U- 300 SoloStar) 50 unit subcut HS diabetes 09/27/22 [History Last Taken Unknown] apixaban [...] % (Auto) 68.4, Lymph % (Auto) 19.2, Grainger % (Auto) 9.9, Eos % (Auto) 1.6, [...] Reese MD; Dr. Gregorio Mccarthy MD~ Signed [facility] Work Phone: 1(709) 284-701106-12-2023 History and physical note Author Dr. Zimmerman [facility] November 29, 2022 4:54pm Note Date/Time November 28, 2022 12:1 3pm [facility] Medical Records Department [address] [place] [address] H&P Exam - Hospitalist 11/28/22 1205 MR#: [id number] Acct: [id number] Name: LANI ZARAGOZA Rep #:[id number] : 1955 67 From: Hilda Zimmerman MD PCP: Dr. Bernabe Reese MD Status:AD M IN Location: [facility] [id number] HPI - General General Date of [...] in the ED were temp of 99.8F, NE of 120, BP of 138/88, RR of [...] the ED, and started on cardizem drip. [facility] Medical History Alcohol use Ambulates with cane Anxiety Arthritis Atrial fibrillation Bilateral leg edema BiPAP (biphasic positive airway pressure) dependence [facility] Cardiology follow-up encounter Depression Diabetes Dietary [...] PO QHS 10/01/20 [History Last Taken 12/03/20] gthsloih-xyo-jzzqh acid 300 mcg-lycopene 600 mcg-lutein 300 mcg [...] 88.3 H, Lymph % (Auto) 5.7 L, Grainger % (Auto) 4.6, Eos % (Auto) 0.0, [...] GFR (MDRD) Non-Af 86, BUN/Creatinine Ratio 12.9, Brvlrhn449 H, Calcium 8.7, Total Bilirubin 1.10 H, [...] Clarity Cloudy, Urine pH 5.0, Ur Specific [place] 1.020, Urine Protein 100 H, Urine Glucose [...] Signed: Kwame Car MD at 11:36 EDT Reading Location ID and State: [facility] / [place] , Service support , Chest X-Ray 11/28/22 10:50 IMPRESSION: Cardiac [...] confused. * Charges/Coding Visit Charges Inpatient E&M: 82000 Init Hosp L3 11/29/22 1654 <Electronically signed by Hilda Zimmerman MD> Cosigner Signature (if applicable): CC: Dr. Bernabe Reese MD; Dr. Hilda Zimmerman MD~ Signed [facility] Work Phone: [phone]) [phone] Bailey [facility] November 28, 2022 5:30pm Note Date/Time November 28, 2022 10:0 2am [facility] Medical Records Department [address] [place] [address] Emergency Department Summary 11/28/22 MR#: [id number] Acct: [id number] Name: LANI ZARAGOZA Rep #:[id number] : 1955 67 From: Gui Bailey MD PCP: Dr. Bernabe Reese MD Status:AD M IN Location: [facility] [id number]- [id number] HPI HPI - Fall History of [...] edema BiPAP (biphasic positive airway pressure) dependence [facility] Cardiology follow-up encounter Depression Diabetes Dietary [...] PO QHS 10/01/20 [History Last Taken 12/03/20] inbgkjqz-hca-wequb acid 300 mcg-lycopene 600 mcg-lutein 300 mcg [...] 88.3 H Lymph % (Auto) 5.7 L Grainger % (Auto) 4.6 Eos % (Auto) 0.0 [...] Color Urine Clarity Urine pH Ur Specific Gunn[place] Urine Protein Urine Glucose (UA) Urine Ketones [...] (Auto) Neut % (Auto) Lymph % (Auto) Grainger % (Auto) Eos % (Auto) Baso % [...] Color Urine Clarity Urine pH Ur Specific [place] Urine Protein Urine Glucose (UA) Urine Ketones [...] (Auto) Neut % (Auto) Lymph % (Auto) Grainger % (Auto) Eos % (Auto) Baso % [...] Clarity Cloudy Urine pH 5.0 Ur Specific [place] 1.020 Urine Protein 100 H Urine Glucose [...] 136. Frequent PVCs. No acute signs of NM. Critical Care Time Critical Care Time: Yes Critical care time (excluding procedures): 30-74 minutes, Including time spent:,Discussing w/Patient &/or Family/Exploration Geologist, Discussing w/Consultants, ArrangingAdmission or Transfer and Performing Direct Patient Care at Bedside Discharge Plan Dx/Rx/DC Orders Clinical Impression: Fall, Acute confusion, Chronic anticoagulation, Acute UTI, Leukocytosis, Atrialfibrillation with RVR, Hyperglycemia due to diabetes mellitus Disposition Disposition: Acute Care Hospital [facility] What to do if you have Problems For any increased pain, shortness of breath, bleeding, nausea or vomiting, chestpain, or any unexpected problems, contact your Primary Care Provider. Call [facility] ([phone]) or report to the closest Emergency Room. Call 911 if necessary. 11/28/22 1730 <Electronically signed by Gui Bailey MD> Cosigner Signature (if applicable): CC: Dr. Bernabe Reese MD ~ Signed [facility] Work Phone: Evaluation noteNo assessment information available [facility] Work Phone: Evaluation note* Diagnosis Onset Date Resolution Status Iron deficiency anemia acute Atrial fibrillation acute Essential (primary) hypertension chronic Hyperlipidemia chronic [facility] Work Phone: Evaluation note* Diagnosis Onset Date Resolution Status Atrial fibrillation acute Chest pain acute Essential (primary) hypertension chronic Hyperlipidemia chronic [facility] Work Phone: Evaluation note* Diagnosis Onset Date Resolution Status Atrial fibrillation acute Chest pain acute Essential (primary) hypertension chronic Hyperlipidemia chronic Acute confusion acute Acute UTI acute Atrial fibrillation with RVR acute Chronic anticoagulation acut e Fall acute Hyperglycemia due to diabetes mellitus acute Leukocytosis acute Streptococcal bacteremia acu te [facility] Work Phone: Evaluation note* Diagnosis Onset Date Resolution Status Atrial fibrillation acute Chest pain acute Essential (primary) hypertension chronic Hyperlipidemia chronic Cellulitis of right leg acut e Dysuria acute Hypoxemia acute Type 2 diabetes mellitus with diabetic polyneuropathy acute Weakness acute Bilateral leg edema chronic Morbid obesity chronic Venous insufficiency (chronic) (peripheral) [facility] Work Phone: Evaluation note* Diagnosis Onset Date Resolution Status Cellulitis of right leg acut e Type 2 diabetes mellitus with diabetic polyneuropathy acute Weakness acute Bilateral leg edema chronic Morbid obesity chronic Venous insufficiency (chronic) (peripheral) chronic Dysuria resolved Hypoxemia resolved Bilateral leg edema chronic Dyspnea on exertion chronic Morbid obesity chronic Pickwickian syndrome chronic [facility] Work Phone: Evaluation note* Diagnosis Ischemic [...] as uncontrolled [facility] Chula Antunez [facility] Note Date/Time 2024 4:0 3pm [facility] Medical Records Department [address] [place] [address] H&P Exam - Hospitalist 10/09/24 1552 MR#: [id number] Acct: [id number] Name: LANI ZARAGOZA Rep #:[id number] : 1955 69 From: Chula Antunez MD PCP: Dr. Bernabe Reese MD Status:AD M IN Location: [facility] [id number] HPI - General General Date of Admission: 10/09/24 Date of Service: 10/09/24 Chief Complaint: R diabetic foot ulcer HPI Narrative LANI ZARAGOZA, is a 69-year-old male with a history of diabetes, hypertension, sleep apnea, paroxysmal atrial fibrillation A-fib who presented [facility] ED 2024 from wound clinic for [...] is compliant with his BiPAP at home. [facility] Medical History Chronic cellulitis Streptococcal bacteremia Hyperglycemia [...] PO QHS BP 10/01/20 04/2 07/14 History getwoevo-iv-jzfht 300 mcg-K 60 1 tablet PO DAILY [...] 82.8 H, Lymph % (Auto) 9.2 L, Grainger % (Auto) 6.5, Eos % (Auto) 0.7, [...] Right basilar atelectasis or pneumonia. Reading Location: [facility] Foot X-Ray 10/09/24 13:45 IMPRESSION: No obvious radiographic evidence of osteomyelitis. However, if clinical suspicion remains high, further evaluation with 3 phase bone scan or MRI is recommended. Reading Location: [facility] Assessment & Plan Assessment/Plan (1) [...] Reese MD; Dr. Chula Antunez MD~ Signed [facility] Work Phone: Reefzp for referral (narrative)No reason for referral information [facility] Work Phone: Regbsh for visit Narrative* Auth/Cert Specialty Diagnoses / Procedures Referred By Contac t Referred To Contact Diagnoses Intracranial hemorrhage Ischemic cerebrovascular accident (CVA) Osteomyelitis (R Foot/ Ext Fixator) Cerebrovascular Accident (Type A Hemorrhagic Stroke) Dillan Guzman MD [address] [facility] 7th [address] [place] [id number] Phone: tel: fax: [facility] [address] [place] [address] Referral ID Status Reason Start Date Expiration Date Visits Re quested Visits Authorized [id number] 1 1 [facility] Summary Purpose Family History No Family History Records Found Relationship Condition Age at Onset Recorded Date/T dianna mother Cardiac disease Unknown Diabetes mellitus Unknown father Cardiac disease Unknown Malignant neoplasm Unknown Advance Directives No Advanced Directives Records Found Advance Directive Response Recorded Date/ Time Living Will No December 03, 2020 5:10pm Power of Insurance Rater No December 03 5:10pm Advance Directive Response Recorded Date/ Time Living Will Yes April 28 10:03am Power of Insurance Rater Yes April 28, 2022 10:03am Advance Directive Response Recorded Date/ Time Living Will Yes April 28 11:03am Power of Insurance Rater Yes April 28, 2022 11:03am Advance Directive Response Recorded Date/ Time Living Will No November 28, 2022 9:50am Power of Insurance Rater No November 28 9:50am Advance Directive Response Recorded Date/ Time Name of Medical Power of Insurance Rater Norma Rosas ( sister) May 21, 2023 5:53pm Living Will No May 21 5:53pm Power of Insurance Rater Yes May 21, 2023 5:53pm Advance Directive Response Recorded Date/ Time Name of Medical Power of Insurance Rater Norma Rosas ( sister) May 21, 2023 6:53pm Living Will No May 21 6:53pm Power of Insurance Rater Yes May 21, 2023 6:53pm Advance Directive Response Recorded Date/ Time Do you have a Healthcare Power of Insurance Rater? 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 Yes 2024 4:40pm Name of Medical Power of Insurance Rater Norma Beckham-- sister 2024 4:40pm Chief Complaint [...] Acute osteomyelitis of right calcaneus M ay 27th, 2025 10:30am Non-pressure chronic ulcer o f other [...] section and content) DATE CREATED AUTHOR 12/06/2017 [facility] [employer] Rashmi Chan DATE CREATED AUTHOR AUTHOR'S ORGANIZ ATION 12/08/2017 [facility] DATE CREATED AUTHOR AUTHOR'S ORGANIZ ATION 02/12/2018 Bethanie keita DATE CREATED AUTHOR AUTHOR'S ORGANIZ ATION 10/25/2024 [facility] [employer] [facility] DATE CREATED AUTHOR AUTHOR'S ORGANIZ ATION 11/17/2024 [facility] DATE CREATED AUTHOR AUTHOR'S ORGANIZ ATION 01/07/2025 [facility] Goals (unrecognized section and content) Goals may [...] Pr ovider, Attending Provider, Referring Provider Active Perforator Relationship Specialty Start Date End Date Dillan Beach MD PCP - General Family Medicine 11/11/16 Team Status: Inactive Member Role Status Dates Dr. Bernabe Reese MD Primary Care Provider, Referr ing Provider Active Bernabe Angel GLOVE PRINTER, GLOVE PRINTER-C Attending Provider Active Team Status: Inactive Member [...] Provider, Other Pro vider Active Dr. Julee Spian , DO Attending Provider, Other Provide r [...] MD Other Provider Active Star t: 2024 Perforator Relationship Specialty Start Date End Date Bernabe Reese MD [address] [facility] [address] [place] [address] PCP - General Family Medicine 10/29/24 Team [...] Active Start : October 14, 2024 Dr. Chual Antunez MD Admit Provider Active Star t: [...] Active Member Role/Relationship Status Dates Dr. Bernabe Resee MD Primary Care Provider Active Start: October [...] or prosecute any alcohol or drug abuse patient.[facility] Scheduled Active and Recently Administ ered Medications [...] 799 (Given - Provider: Felicitas Reed, ZEN) Atorvastatin [...] Danielle Ricardo, ZEN)1438 (Given - Provider: Danielle Ricardo RN)2119 (Given - Provider: Luis Yang, RN) 0800 (Given - Provider: Felicitas Reed, [...] 0800 (Given - Provider: Felicitas Reed, RN) Polyethylene glycol (MIRALAX) packet 17 [...] RN) 0807 (Given - Provider: Felicitas Reed, ZEN) Senna (SENOKOT) tablet 8.6 mg 8.6 mg, [...] doses, First dose (after last modification) on Tue10/20/24 at 1230, Last dose on Tue11/22/24 at 1500, Indication for treatment with Vancomycin - Culture/Source: osteomyelitis Extravasation Risk 0255 ($$New Bag$$ - Provider: Vishal Avila RN)0452 (Stopped - Provider: Vishal Avila RN)1638 ($$New Bag$$ - Provider: Aixa Arvizu RN) 0225 ($$New Bag$$ - Provider: Vishal Avila RN)1458 ($$New Bag$$ - Provider: Danielle Ricardo, ZEN) 0211 ($$New Bag$$ - Provider: Luis Yang, RN)0415 (Stopped - Provider: Luis Yang RN) PRN Medication Order 10/28/2024 10/29/2024 10/30/2024 [...] 50% needed, contact pharmacy or obtain from [facility] cart ++ glucose (GLUTOSE) 40 % [...] at 0825, Until Specified, Who to Notify: Elevator Repairer Helper, Call Elevator Repairer Helper if a.m. Glucose is less than 80 [...] glucose is greater than 200md/dl, then notify Elevator Repairer Helper. And BLOOD GLUCOSE (POC DEVICE) (CANCELED) Routine, [...] 50% needed, contact pharmacy or obtain from [employer] cart ++ And glucose (GLUTOSE) 40 % [...] at 0825, Until Specified, Who to Notify: Elevator Repairer Helper, For all Blood Glucose LESS THAN 80 mg/dl, notify Elevator Repairer Helper after treatment per Hypoglycemia in Non- Adults [...] BE BASED ON THE PRIMARY CLINICAL RECORDS. [employer] provides no warranty or guarantee of the accuracy or completeness of information in this document.
[2025-01-08 08:07] LABS: Anion Gap 10 (5-15); BUN 27 mg/dL (4-19); BUN/Creat Ratio 31.8 RATIO (10-20); Calcium,Total 9.1 mg/dL (7.6-11.0); Carbon Dioxide 31.4 mmol/L (21.0-32.0); Chloride 98 mmol/L (98-108); Glucose 126 mg/dL (70-99); Magnesium 1.6 mg/dL (1.5-2.2); Potassium 4.0 mmol/L (3.3-5.1)
== END ==
LOC: OLS.SW 04:00
PROVIDERS: PCP Family Medicine; Referring Provider Internal Medicine; Visit Provider Internal Medicine
DX: E11.69 Type 2 diabetes mellitus with other specified complication (principal); M86.171 Other acute osteomyelitis, right ankle and foot; I69.151 Hemiplegia and hemiparesis following nontraumatic intracerebral hemorrhage affecting right dominant side; L97.519 Non-pressure chronic ulcer of other part of right foot with unspecified severity
CPT/HCPCS: 36415; 80048; 83735

== ENCOUNTER 2025-01-16 10:30 | Outpatient (RCR) | payer MEDICARE, OTHER, SELFPAY ==
[2024-12-18 09:27] VITALS: BP 135/60; PULSE 74; RESP 16; TEMP 36.4
[2024-12-18 09:40] VITALS: BMI 48.9
--- NOTE | 2024-12-19 08:35 | WC ---
PHOTO 12/18/24 RIGHT HEEL
--- NOTE | 2024-12-21 15:13 | HP.PCM_ITS ---
History of Present Illness Date of Service: 12/18/24 Chief Complaint: Diabetic right heel ulceration History of Wound: This is a 69-year-old obese, diabetic male patient whose care is to be assumed from Dr. Ramon Garcia, who is departing from our staff. The patient has a chronic ulceration on his right heel, associated with poorly controlled type 2 diabetes mellitus and diabetic polyneuropathy. The patient suffers from multiple other pre-existing medical problems, which are documented herein. The patient's most recent management has been by means of serial debridements, with an EpiFix allograft having been applied at the patient's prior visit on December 11, 2024. Offloading measures and total contact casting has also been a recent cornerstone of the patient's management. 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 [facility] Medical History Chronic anticoagulation Type 2 diabetes mellitus with diabetic polyneuropathy Kidney stones Chronic cellulitis Streptococcal bacteremia Hyperglycemia due to diabetes mellitus Fall Wears glasses Depression Anxiety Alcohol use History of ulceration Ambulates with cane Insulin dependent diabetes mellitus Arthritis Low iron Dietary restriction Former smoker Shortness of breath on exertion Leg cramps History of pain when walking History of edema Cardiology follow-up encounter History of echocardiogram Blackout Restless legs HTN (hypertension) Diabetes BiPAP (biphasic positive airway pressure) dependence Atrial fibrillation Hyperlipidemia Thyroid nodule Lower extremity neuropathy Essential (primary) hypertension Type 2 diabetes mellitus Morbid obesity Obstructive sleep apnea New onset atrial fibrillation (10/01/20) Pickwickian syndrome Bilateral leg edema Home Medications ?Medication ?Instructions ?Recorded ?Last Taken ?Type losartan 100 mg tablet 100 mg PO QHS Check with supriya souza 04/04/14 10/08/24 History doctor metformin 1,000 mg tablet 1,000 mg PO BIDCM diabetes 1 10/09/24 History amlodipine 5 mg tablet 5 mg PO QHS BP 10/01/20 04/07/14 History wevpwhnk-vg-rcpun 300 mcg-K 60 1 tablet PO DAILY suppl cheryl 10/01/20 05/21/23 History mcg-lycop 600 mcg-lutein 300 mcg tablet insulin glargine U-300 conc 300 25 unit subcut QHS sudheer zay 09/27/22 05/20/23 History unit/mL (3 mL) subcutaneous pen (Toujeo Max U-300 SoloStar) apixaban 5 mg tablet 5 mg PO BID blood thinner 10/09/24 History gabapentin 800 mg tablet 800 mg PO .COMPLEX PRN neuro paula 11/29/22 10/09/24 History pen needle, diabetic 32 gauge x #1,200 ea 05/23/23 Unk nown Rx blood sugar diagnostic (OneTouch #10 ea 07/11/23 Unkno wn History Ultra Test strips) metoprolol tartrate 50 mg tablet 50 mg PO BID blood pr essure 10/09/24 10/11/24 History acetaminophen 325 mg tablet 650 mg (2 x 325 mg) PO Q6H PRN PRN 10/16/24 Unknown Rx Pain 1-10 Or Fever >100.7 #0 tabs meropenem 1 gram intravenous 1 g IV Q8 37 days #111 ea 10/16/24 Unknown Rx solution vancomycin 1.5 gram intravenous 1.5 g IV Q12H 37 days 10/16/24 Unknown Rx solution Allergy/AdvReac Type Severity Reaction Status Date / Time ampicillin Allergy Unknown Verified 10/09/24 12:49 peanut Allergy NEEDS Verified 10/09/24 12:49 FOLLOW-UP Penicillins Allergy Unknown Verified 10/09/24 12:49 Family History Mother Heart disease Diabetes Father Heart disease Cancer Surgical History History of amputation of toe History of wisdom tooth extraction Social History housing: apartment Smoking Status: Never smoker how long ago did patient quit smokin alcohol intake: never substance use type: does not use caffeine: Yes Vital Signs Vital Signs Vital Signs: Weight Weight: 322 lb Body Mass Index (BMI) 48.9 Physical Exam Const alert, oriented x3, no apparent distress and well nourished Constitutional Narrative: The patient is morbidly obese, with a BMI of 49.0. General Appearance: cooperative, comfortable and well developed Orientation / Consciousness: awake, oriented to person, oriented to place and oriented to time Exam Limitations: no limitations HEENT normocephalic and head/scalp atraumatic Head and Scalp: normal to inspection, normocephalic and atraumatic Face and Sinus: normal facial exam Nose: external nose normal External Ear: external ears normal Eyes EOMs intact bilaterally General Eye: normal appearance of both eyes Neck full ROM Resp normal respiratory effort, normal air movement, no retractions and no use of accessory muscles Effort and Inspection: able to speak in complete sentences Extremity no calf tenderness General Extremity: Negative for clubbing or cyanosis Skin Wound Narrative: An ulceration is noted on the patient's right heel. The ulceration is full- thickness in nature, extending through all layers of the dermis and into the subcutaneous tissues. The ulceration does not appear to involve muscle, fascia, or bone. Ulcer margins are reasonably well beveled. There is a small amount of callus surrounding the ulceration. There is no sign of infection or cellulitis. Dimensions are documented elsewhere. The base of the ulceration is generally pink and healthy in appearance, with a small amount of bioburden. The ulceration appears to be smaller than 1 week prior. Neuro oriented x3, CN's II-XII intact bilaterally, moves all extremities and no focal motor deficits Sensorium / Orientation: awake, alert, oriented to person, oriented to place and oriented to time Speech: speech normal Psych Appearance: grossly normal and appropriate Attitude: calm Activity / Motor Behavior: appropriate eye contact Speech: normal speech Mood & Affect: euthymic mood Thought Process: normal thought process Thought Content: normal thought content Attention / Concentration: attention grossly intact Debridement Note Debridement Note Wound debrided: Diabetic right heel ulceration Laterality: Right Wound Grade/Stage: Tucker grade 1 Type of Debridement: Excisional debridement Anesthesia Used: 5% Lidocaine Gel Depth: Down to and including healthy tissue and in the subcutaneous layer Percentage of wound debrided: 100 Instrument Used: 5mm curette Tissue Removed: Bioburden and small amount of residual cellular tissue product Severity: Fat Layer Exposed Amount of bleeding with debridement: Mild Bleeding Controlled with: Compression and gauze Patient tolerated procedure: Patient tolerated procedure well Debridement Free Text: Following a routine excisional debridement, which was well-tolerated, an allograft was applied topically to the ulceration. A 2 cm x 3 cm EpiCord allograft was selected for application. The allograft was removed from its sterile packaging, and it was applied topically to the ulcer site. 100% of the allograft was utilized. Once in place, Adaptic Touch was placed, and was secured using Steri-Strips. Collagen hydrogel was then placed over the site, and a gauze dressing was applied. This represents the 4th such application of an allograft at this site. A total contact cast (TCC) was then applied. It should be also noted that the sutures which remained in the patient's calf from the prior placement of an external fixator were removed. Post-Debridement Measurements and Additional Note: Post-Debridement Measurements/Treatment - Nurse 1 - General Ulcer Assessment Start: 12/18/24 09:27 Freq: Status: Active Protocol: MARGY Activity Type Activity Date Activity User E-sign Co-sign Detail Recorded Client Recorded Date Recorded By Document 12/18/24 09:27 [facility] [id number] 12/18/24 09:35 BM Document 12/18/24 09:40 DS [id number] 12/18/24 09:41 DS 12/18/24 12/18/24 09:27 09:40 - Today's Visit Information Type of service Follow-up Visit (Physician/PARTY HOST ) Arrival Mode Wheelchair Transfer Assistance Shira Lift Transfer Assist (Other) 3 Patient Identification Verified (Name & Yes ) Patient Requires Transmission-Based No Precautions Height and Weight Height 5 ft 8 in Weight 322 lb Weight in Pounds 322.0 lbs Body Mass Index (BMI) 48.9 BMI Classification Obese Vital Signs Temperature (97.8 F-99.1 F) 97.6 F L Temperature Source Temporal Pulse Rate (60-100) 74 Pulse Location Monitor Respiratory Rate (12-18) 16 Respiratory rate source Observation Oxygen Delivery Method Room Air Blood Pressure (90/60-120/80) 135/60 H Blood Pressure Mean 85 Source Monitor Position Sitting Blood Pressure Location Left Arm History Since Last Visit- (Skip if this is Patient's initial visit) Have you changed medications since your No last visit? Any new allergies or adverse reactions No Had a fall/change in ADL's that may No increase risk of falls Signs or symptoms of abuse and/or No neglect since last visit Have you been in the hospital since your No last visit? Has dressing in place as prescribed Yes Has offloadiing in place as prescribed Yes Experienced any changes in pain level or No management Left Footwear Diabetic Shoe Right Footwear Total Contact Cast Pain Scale: 0-10 Numeric Is Patient Pain Free? Yes Yes - Nurse 1 - General Ulcer Measurement Start: 12/18/24 09:27 Freq: Status: Active Protocol: Activity Type Activity Date Activity User E-sign Co-sign Detail Recorded Client Recorded Date Recorded By Document 12/18/24 09:27 [facility] [id number] 12/18/24 09:35 [facility] 12/18/24 09:27 Wound Center Nurse 1 4.R heel medial -Combined with other wound No -Current Size (cm) - Length 1.6 -Current Size (cm) - Width 2.5 -Current Size (cm) - Depth 0.1 -Total Square Cm 4.00 -Date of Last Picture (Recall this 12/18/24 field) -Photo Taken Yes -Epithelialization Medium 34-66% -Tunneling No -Undermining/Tunneling No -Exudate Amt Medium -Exudate Type Serosanguineous -Wound Margin Flat & Intact -Granulation Amt Medium (34-66%) -Granulation Quality Red -Slough/Fibrin Yes -Necrosis Amt Medium (34-66%) -Necrotic Tissue Type Adherent Slough -Texture (Lesvia-wound Skin Appearance) Assessed, Scarring -Moisture (Lesvia-wound Skin Appearance) Assessed,Dry/ Scaly -Color (Lesvia-wound Skin Appearance) Assessed -Temperature (Lesvia-wound Skin No Abnormality Appearance) (Pt Warm) -Tenderness on Palpation (Lesvia-wound No Skin Appearance) -Ulcer Cleansing Soap and Water -Foul Odor after Cleansing No -Anesthetic Used 5% Lidocaine Gel WC - Nurse 2 - General Ulcer CM Notes Start: 12/18/24 09:27 Freq: Status: Active Protocol: Activity Type Activity Date Activity User E-sign Co-sign Detail Recorded Client Recorded Date Recorded By Document 12/18/24 09:49 DS [id number] 12/18/24 10:00 DS Edit Result 12/18/24 09:49 DS (1) [id number] 12/18/24 10:07 DS (1) 4.R heel medial - Wound Comment(s) => sutures removed 12/18/24 09:49 Wound Center Nurse 2 -Time 09:50 -Correct Patient Yes -Correct Side, Site, Position Yes -Correct Procedure Yes -Procedure Performed Yes -Type of Procedure Debridement -Clinical Debridement Subcutaneous -Tissue Removed Subcutaneous -Post Debridement (cm) - Length 1.5 -Post Debridement (cm) - Width 2.7 -Post Debridement (cm) - Depth 0.2 -Total Square (Post) (cm) 4.05 -Area of Debridement (cm) - Length 1.5 -Area of Debridement (cm) - Width 2.7 -Total Square (Area) (cm) 4.05 -Tunneling No -Undermining/Tunneling No -Circular Undermining No -Wound/Ulcer Outcome Not Healed -Ulcer Cleansing Rinsed/ Irrigated with Saline -Foul Odor after Cleansing No -Bioengineered Tissue No -Type of Bioengineered Tissue Epicord -Expiration Date 04/20/29 -Product Lot Number [id number] -Percent Used 100 -Lot number of Saline Used [id number] -Bleeding Controlled with Pressure -Treatment Response Procedure Tolerated Well -Offloading Yes -Type of Offloading Total Contact Cast (TCC) - Right ($) -Debridement - Subq, 1st 20sq cm No -Apply Skin Sub - 1st 25 sq cm - Feet 1 -Epicord Application 1-4 (per sq cm) 6 -Wound Comment(s) sutures removed Pain Scale: 0-10 Numeric Is Patient Pain Free? Yes - Nurse 3 - General Ulcer D/C NN Start: 12/18/24 09:27 Freq: Status: Active Protocol: Activity Type Activity Date Activity User E-sign Co-sign Detail Recorded Client Recorded Date Recorded By Document 12/18/24 10:14 ÁNGEL [id number] 12/18/24 10:16 ÁNGEL 12/18/24 10:14 Wound Care Center Nurse 3 4.R heel medial -Primary Dressing Applied AMD Dressing 4x4 -Other Covering betadine to sutured sites on legs. -AMD Dressing 4x4 2 Pain Scale: 0-10 Numeric Is Patient Pain Free? Yes - Visit Discharge Discharge Condition Stable Ambulatory Status Wheelchair Transportation Private Auto Medication Reconcilliation completed & Yes provided to patient/care provider Clinical Summary of Care Provided Yes Notes: shira lift x2. Lab / Micro Data Attestation: I reviewed the patient's lab results. Lab results narrative: Laboratory Tests 12/18/24 06:00 WBC 7.5 Hgb 10.9 L Hct 33.7 L Plt Count 189 Sodium 141 Potassium 3.9 Chloride 101 Carbon Dioxide 29.0 BUN 28 H Creatinine 0.91 Glucose 132 H Calcium 9.3 C-React Prot Ext Range 13.50 H Charges/Coding Multi Select Codes Visit Charges Office Visit/Consults: 72899 OV L4 New 45 min Integumentary Integumentary CPT Codes: 21091 Skin sub graft face/nk/hf/g Assessment/Plan Assessment/Plan (1) Non-pressure chronic ulcer of other part of right foot with fat layer exposed: CODE(S): L97.512 - Non-pressure chronic ulcer of other part of right foot with fat layer exposed (2) Diabetic ulcer of right heel: CODE(S): E11.621 - Type 2 diabetes mellitus with foot ulcer; L97.419 - Non-pressure chronic ulcer of right heel and midfoot with unspecified severity QUALIFIERS: Diabetes mellitus type: type 2 Non-pressure ulcer stage: with fat layer exposed Qualified Code(s): E11.621 - Type 2 diabetes mellitus with foot ulcer; L97.412 - Non-pressure chronic ulcer of right heel and midfoot with fat layer exposed (3) Insulin dependent diabetes mellitus: (4) Type 2 diabetes mellitus with diabetic polyneuropathy: CODE(S): E11.42 - Type 2 diabetes mellitus with diabetic polyneuropathy QUALIFIERS: Diabetes mellitus alf insulin use: unspecified extermination inspector insulin use status Qualified Code(s): E11.42 - Type 2 diabetes mellitus with diabetic polyneuropathy (5) Pickwickian syndrome: CODE(S): E66.2 - Morbid (severe) obesity with alveolar hypoventilation (6) Hyperlipidemia: CODE(S): E78.5 - Hyperlipidemia, unspecified (7) Essential (primary) hypertension: CODE(S): I10 - Essential (primary) hypertension (8) Bilateral leg edema: CODE(S): R60.0 - Localized edema (9) Type 2 diabetes mellitus: CODE(S): E11.9 - Type 2 diabetes mellitus without complications QUALIFIERS: Diabetes mellitus extermination inspector insulin use: with extermination inspector use Diabetes mellitus complication status: with neurologic complications Diabetes mellitus complication detail: with polyneuropathy Qualified Code(s): E11.42 - Type 2 diabetes mellitus with diabetic polyneuropathy; Z79.4 - half-way (current) use of insulin (10) Atrial fibrillation: CODE(S): I48.91 - Unspecified atrial fibrillation (11) Morbid obesity: CODE(S): E66.01 - Morbid (severe) obesity due to excess calories (12) Dyspnea on exertion: CODE(S): R06.00 - Dyspnea, unspecified (13) Venous insufficiency (chronic) (peripheral): CODE(S): I87.2 - Venous insufficiency (chronic) (peripheral) (14) Chronic anticoagulation: CODE(S): Z79.01 - half-way (current) use of anticoagulants (15) Chronic anticoagulation: CODE(S): Z79.01 - half-way (current) use of anticoagulants (16) Arthritis: CODE(S): M19.90 - Unspecified osteoarthritis, unspecified site (17) Former smoker: CODE(S): Z87.891 - Personal history of nicotine dependence (18) History of edema: CODE(S): Z87.898 - Personal history of other specified conditions (19) HTN (hypertension): CODE(S): I10 - Essential (primary) hypertension (20) BiPAP (biphasic positive airway pressure) dependence: CODE(S): Z99.89 - Dependence on other enabling machines and devices (21) Obstructive sleep apnea: CODE(S): G47.33 - Obstructive sleep apnea (adult) (pediatric) (22) History of amputation of toe: CODE(S): Z89.429 - Acquired absence of other toe(s), unspecified side PLAN: Plan This is a 69-year-old obese diabetic male with a diabetic right heel ulceration. An EpiCord allograft was placed topically today, as well as a total contact cast. Offloading measures are to be continued. The patient has been advised to optimize his nutritional intake as well as his diabetic control. Leg elevation has been advised is much as possible to minimize swelling and edema in the patient's lower extremities. Prolonged, idle sitting has been discouraged. The patient is to return in 1 week for reevaluation.
[2024-12-25 09:42] VITALS: BP 130/85; PULSE 65; RESP 16; TEMP 36.1; BMI 48.9
--- NOTE | 2024-12-26 08:45 | WC ---
PHOTO 12/25/24 RIGHT HEEL
--- NOTE | 2024-12-26 08:46 | WC ---
PHOTO 12/25/24 RIGHT HEEL
--- NOTE | 2024-12-29 18:26 | PCM.WC.HP ---
History of Present Illness Date of Service: 12/25/24 Chief Complaint: Diabetic right heel ulceration History of Wound: This is a 69-year-old obese, diabetic male patient whose care has been assumed from Dr. Ramon Garcia, who is departing from our staff. The patient has a chronic ulceration on his right heel, associated with poorly controlled type 2 diabetes mellitus and diabetic polyneuropathy. The patient suffers from multiple other pre-existing medical problems, which are documented herein. The patient's most recent management has been by means of serial debridements, with an EpiFix allograft having been applied at the patient's prior visit on December 11, 2024. Offloading measures and total contact casting have also been a recent cornerstone of the patient's management. 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 [facility] Medical History Chronic anticoagulation Type 2 diabetes mellitus with diabetic polyneuropathy Kidney stones Chronic cellulitis Streptococcal bacteremia Hyperglycemia due to diabetes mellitus Fall Wears glasses Depression Anxiety Alcohol use History of ulceration Ambulates with cane Insulin dependent diabetes mellitus Arthritis Low iron Dietary restriction Former smoker Shortness of breath on exertion Leg cramps History of pain when walking History of edema Cardiology follow-up encounter History of echocardiogram Blackout Restless legs HTN (hypertension) Diabetes BiPAP (biphasic positive airway pressure) dependence Atrial fibrillation Hyperlipidemia Thyroid nodule Lower extremity neuropathy Essential (primary) hypertension Type 2 diabetes mellitus Morbid obesity Obstructive sleep apnea New onset atrial fibrillation (10/01/20) Pickwickian syndrome Bilateral leg edema Home Medications ?Medication ?Instructions ?Recorded ?Last Taken ?Type losartan 100 mg tablet 100 mg PO QHS Check with primary 04/04/14 10/08/24 [address] doctor metformin 1,000 mg tablet 1,000 mg PO BIDCM diabetes 04/04/14 10/09/24 History amlodipine 5 mg tablet 5 mg PO QHS BP 10/01/20 10/08/24 History lwxdomqv-sf-lvluf 300 mcg-K 60 1 tablet PO DAILY supplemetn 10/01/20 05/21/23 History mcg-lycop 600 mcg-lutein 300 mcg tablet insulin glargine U-300 conc 300 25 unit subcut QHS diabetes 09/27/22 05/20/23 History unit/mL (3 mL) subcutaneous pen (Toujeo Max U-300 SoloStar) apixaban 5 mg tablet 5 mg PO BID blood thinner 11/29/22 10/09/24 History gabapentin 800 mg tablet 800 mg PO .COMPLEX PRN neuropathy 11/29/22 10/09/24 History pen needle, diabetic 32 gauge x #1,200 ea 05/23/23 Unknown Rx blood sugar diagnostic (OneTouch #10 ea 07/11/23 Unknown History Ultra Test strips) metoprolol tartrate 50 mg tablet 50 mg PO BID blood pressure 10/09/24 10/11/24 History acetaminophen 325 mg tablet 650 mg (2 x 325 mg) PO Q6H PRN PRN 10/16/24 Unknown Rx Pain 1-10 Or Fever >100.7 #0 tabs meropenem 1 gram intravenous 1 g IV Q8 37 days #111 ea 10/16/24 Unknown Rx solution vancomycin 1.5 gram intravenous 1.5 g IV Q12H 37 days 10/16/24 Unknown Rx solution Allergy/AdvReac Type Severity Reaction Status Date / Time ampicillin Allergy Unknown Verified 10/09/24 12:49 peanut Allergy NEEDS Verified 10/09/24 12:49 FOLLOW-UP Penicillins Allergy Unknown Verified 10/09/24 12:49 Family History Mother Heart disease Diabetes Father Heart disease Cancer Surgical History History of amputation of toe History of wisdom tooth extraction Social History housing: apartment Smoking Status: Never smoker how long ago did patient quit smokin alcohol intake: never substance use type: does not use caffeine: Yes Vital Signs Vital Signs Vital Signs: Weight Weight: 322 lb Body Mass Index (BMI) 48.9 Physical Exam Const alert, oriented x3, no apparent distress and well nourished Constitutional Narrative: The patient is morbidly obese, with a BMI of 49.0. General Appearance: cooperative, comfortable and well developed Orientation / Consciousness: awake, oriented to person, oriented to place and oriented to time Exam Limitations: no limitations HEENT normocephalic and head/scalp atraumatic Head and Scalp: normal to inspection, normocephalic and atraumatic Face and Sinus: normal facial exam Nose: external nose normal External Ear: external ears normal Eyes EOMs intact bilaterally General Eye: normal appearance of both eyes Neck full ROM Resp normal respiratory effort, normal air movement, no retractions and no use of accessory muscles Effort and Inspection: able to speak in complete sentences Extremity no calf tenderness General Extremity: Negative for clubbing or cyanosis Skin Wound Narrative: An ulceration is noted on the patient's right heel. The ulceration is full-thickness in nature, extending through all layers of the dermis and into the subcutaneous tissues. The ulceration does not appear to involve muscle, fascia, or bone. Ulcer margins are reasonably well beveled. There is a moderate amount of callus surrounding the ulceration. There is no sign of infection or cellulitis. Dimensions are documented elsewhere. The base of the ulceration is generally pink and healthy in appearance, with a small amount of bioburden and residual cellular tissue product. The ulceration appears to be smaller than the week prior. Lipodermatosclerosis and hyperpigmentation are noted in the patient's right gaiter area. Neuro oriented x3, CN's II-XII intact bilaterally, moves all extremities and no focal motor deficits Sensorium / Orientation: awake, alert, oriented to person, oriented to place and oriented to time Speech: speech normal Psych Appearance: grossly normal and appropriate Attitude: calm Activity / Motor Behavior: appropriate eye contact Speech: normal speech Mood & Affect: euthymic mood Thought Process: normal thought process Thought Content: normal thought content Attention / Concentration: attention grossly intact Debridement Note Debridement Note Wound debrided: Diabetic right heel ulceration Laterality: Right Wound Grade/Stage: Tucker grade 1 Type of Debridement: Excisional debridement Anesthesia Used: 5% Lidocaine Gel Depth: Down to and including healthy tissue and in the subcutaneous layer Percentage of wound debrided: 100 Instrument Used: 5mm curette Tissue Removed: Bioburden; peripheral callus; residual cellular tissue product Severity: Fat Layer Exposed Amount of bleeding with debridement: Mild Bleeding Controlled with: Compression and gauze and Silver Nitrate Patient tolerated procedure: Patient tolerated procedure well Debridement Free Text: Following a routine excisional debridement, which was well-tolerated, an allograft was applied topically to the ulceration. A 2 cm x 2 cm EpiFix allograft was selected for application. The allograft was removed from its sterile packaging, and it was applied topically to the ulcer site. 100% of the allograft was utilized. Once in place, Adaptic Touch was placed, and was secured using Steri-Strips. Collagen hydrogel was then placed over the site, and a gauze dressing was applied. This represents the 5th such application of an allograft at this site. A total contact cast (TCC) was then applied. Post-Debridement Measurements and Additional Note: Post-Debridement Measurements/Treatment WC - Nurse 1 - General Ulcer Assessment Start: 12/18/24 09:27 Freq: Status: Active Protocol: MARGY Activity Type Activity Date Activity User E-sign Co-sign Detail Recorded Client Recorded Date Recorded By Document 12/18/24 09:27 [facility] [id number] 12/18/24 09:35 BMF Document 12/18/24 09:40 DS [id number] 12/18/24 09:41 DS Document 12/25/24 09:42 [facility] [id number] 12/25/24 09:54 BMF 12/18/24 12/18/24 12/25/24 09:27 09:40 09:42 WC - Today's Visit Information Type of service Follow-up Visit Follow-up Visit (Physician/[facility] [employer] [facility]ER (Physician/[facility] [employer] ) ) Arrival Mode Wheelchair Wheelchair Transfer Assistance Shira Lift Shira Lift Transfer Assist (Other) 3 Patient Identification Verified (Name & Yes Yes ) Patient Requires Transmission-Based No No Precautions Height and Weight Height 5 ft 8 in Weight 322 lb Weight in Pounds 322.0 lbs Body Mass Index (BMI) 48.9 48.9 BMI Classification Obese Obese Vital Signs Temperature (97.8 F-99.1 F) 97.6 F L 97 F L Temperature Source Temporal Temporal Pulse Rate (60-100) 74 65 Pulse Location Monitor Monitor Respiratory Rate (12-18) 16 16 Respiratory rate source Observation Observation Oxygen Delivery Method Room Air Room Air Blood Pressure (90/60-120/80) 135/60 H 130/85 H Blood Pressure Mean 85 100 Source Monitor Monitor Position Sitting Sitting Blood Pressure Location Left Arm Right Arm History Since Last Visit- (Skip if this is Patient's initial visit) Have you changed medications since your No No last visit? Any new allergies or adverse reactions No No Had a fall/change in ADL's that may No No increase risk of falls Signs or symptoms of abuse and/or No No neglect since last visit Have you been in the hospital since your No No last visit? Has dressing in place as prescribed Yes Yes Has compression in place as prescribed N/A Has offloadiing in place as prescribed Yes Yes Experienced any changes in pain level or No No management Left Footwear Diabetic Shoe Diabetic Shoe Right Footwear Total Contact Total Contact Cast Cast Pain Scale: 0-10 Numeric Is Patient Pain Free? Yes Yes Yes - Nurse 1 - General Ulcer Measurement Start: 12/18/24 09:27 Freq: Status: Active Protocol: Activity Type Activity Date Activity User E-sign Co-sign Detail Recorded Client Recorded Date Recorded By Document 12/18/24 09:27 [facility] [id number] 12/18/24 09:35 BM Document 12/25/24 09:42 [facility] [id number] 12/25/24 09:54 BM 12/18/24 12/25/24 09:27 09:42 Wound Center Nurse 1 4.R heel medial -Combined with other wound No No -Current Size (cm) - Length 1.6 0.9 -Current Size (cm) - Width 2.5 2.3 -Current Size (cm) - Depth 0.1 0.2 -Total Square Cm 4.00 2.07 -Date of Last Picture (Recall this 12/18/24 12/25/24 field) -Photo Taken Yes Yes -Epithelialization Medium 34-66% -Tunneling No -Undermining/Tunneling No -Exudate Amt Medium Medium -Exudate Type Serosanguineous Serosanguineous -Wound Margin Flat & Intact Thickened -Granulation Amt Medium (34-66%) Large (67-100%) -Granulation Quality Red Red -Slough/Fibrin Yes -Necrosis Amt Medium (34-66%) Small (1-33%) -Necrotic Tissue Type Adherent Slough Adherent Slough -Texture (Lesvia-wound Skin Appearance) Assessed, Assessed Scarring -Moisture (Lesvia-wound Skin Appearance) Assessed,Dry/ Assessed Scaly -Color (Lesvia-wound Skin Appearance) Assessed Assessed -Temperature (Lesvia-wound Skin No Abnormality No Abnormality Appearance) (Pt Warm) (Pt Warm) -Tenderness on Palpation (Lesvia-wound No No Skin Appearance) -Ulcer Cleansing Soap and Water Soap and Water -Foul Odor after Cleansing No No -Anesthetic Used 5% Lidocaine 5% Lidocaine Gel Gel - Nurse 2 - General Ulcer CM Notes Start: 12/18/24 09:27 Freq: Status: Active Protocol: Activity Type Activity Date Activity User E-sign Co-sign Detail Recorded Client Recorded Date Recorded By Document 12/18/24 09:49 DS [id number] 12/18/24 10:00 DS Edit Result 12/18/24 09:49 DS (1) [id number] 12/18/24 10:07 DS Document 12/25/24 10:09 DS [id number] 12/25/24 10:19 DS Edit Result 12/25/24 10:09 DS (2) [id number] 12/25/24 10:49 DS Edit Result 12/25/24 10:09 DS (3) [id number] 12/25/24 10:53 DS (1) 4.R heel medial - Wound Comment(s) => sutures removed (2) 4.R heel medial - Type of Bioengineered Tissue => Epifix - Expiration Date => 06/20/29 - Product Lot Number => [id number] - Percent Used => 100 - Lot number of Saline Used => [id number] - Apply Skin Sub - 1st 25 sq cm - Feet => 1 - Epifix Application 1-4 (per sq cm) => 4 - Wound Comment(s) => pressure dressing used for 10mins (3) 4.R heel medial - Offloading => Yes - Type of Offloading => Total Contact Cast => (TCC) - Right ($) - Total Non-Weight Bearing to => Right Lower => Extremity - Assistive Device(s) => Wheelchair - Pressure Reduction => Wheelchair cushion 12/18/24 12/25/24 09:49 10:09 Wound Center Nurse 2 4.R heel medial -Time 09:50 10:09 -Correct Patient Yes Yes -Correct Side, Site, Position Yes Yes -Correct Procedure Yes Yes -Procedure Performed Yes Yes -Type of Procedure Debridement Debridement -Clinical Debridement Subcutaneous Subcutaneous -Tissue Removed Subcutaneous Subcutaneous -Post Debridement (cm) - Length 1.5 1.5 -Post Debridement (cm) - Width 2.7 2.1 -Post Debridement (cm) - Depth 0.2 0.2 -Total Square (Post) (cm) 4.05 3.15 -Area of Debridement (cm) - Length 1.5 1.5 -Area of Debridement (cm) - Width 2.7 2.1 -Total Square (Area) (cm) 4.05 3.15 -Tunneling No No -Undermining/Tunneling No No -Circular Undermining No No -Wound/Ulcer Outcome Not Healed Not Healed -Ulcer Cleansing Rinsed/ Irrigated with Saline -Foul Odor after Cleansing No No -Bioengineered Tissue No No -Type of Bioengineered Tissue Epicord Epifix -Expiration Date 04/20/29 06/20/29 -Product Lot Number [id number] -Percent Used 100 100 -Lot number of Saline Used [id number] -Bleeding Controlled with Pressure Pressure,Silver Nitrate ($) -Treatment Response Procedure Procedure Tolerated Well Tolerated Well -Offloading Yes Yes -Type of Offloading Total Contact Total Contact Cast (TCC) - Cast (TCC) - Right ($) Right ($) -Total Non-Weight Bearing to Right Lower Extremity -Assistive Device(s) Wheelchair -Pressure Reduction Wheelchair cushion -Debridement - Subq, 1st 20sq cm No No -Apply Skin Sub - 1st 25 sq cm - Feet 1 1 -Epicord Application 1-4 (per sq cm) 6 -Epifix Application 1-4 (per sq cm) 4 -Wound Comment(s) sutures removed pressure dressing used for 10mins Pain Scale: 0-10 Numeric Is Patient Pain Free? Yes Yes - Nurse 3 - General Ulcer D/C NN Start: 12/18/24 09:27 Freq: Status: Active Protocol: Activity Type Activity Date Activity User E-sign Co-sign Detail Recorded Client Recorded Date Recorded By Document 12/18/24 10:14 [id number] 12/18/24 10:16 Document 12/25/24 11:17 [facility] [id number] 12/25/24 11:18 [facility] 12/18/24 12/25/24 10:14 11:17 Wound Care Center Nurse 3 4.R heel medial -Primary Dressing Applied AMD Dressing Optilok 5x5 1/2 4x4 -Other Dressing epicord, tcc 3 -Primary Dressing Covered/Secured with Dry Gauze, Secured with Tape -Other Covering betadine to sutured sites on legs. -AMD Dressing 4x4 2 -Optilok 5x5 1/2 1 Treatment Response Procedure Tolerated Well Pain Scale: 0-10 Numeric Is Patient Pain Free? Yes Yes WC - Visit Discharge Discharge Condition Stable Stable Ambulatory Status Wheelchair Wheelchair Transportation Private Auto ecf Medication Reconcilliation completed & Yes provided to patient/care provider Clinical Summary of Care Provided Yes Notes: shira noel x2. Facility Type [facility] Care Facility Charges/Coding Procedures Integumentary [id number]: [id number] Skin sub graft face/nk/hf/g Assessment/Plan Assessment/Plan (1) Non-pressure chronic ulcer of other part of right foot with fat layer exposed: CODE(S): L97.512 - Non-pressure chronic ulcer of other part of right foot with fat layer exposed (2) Diabetic ulcer of right heel: CODE(S): E11.621 - Type 2 diabetes mellitus with foot ulcer; L97.419 - Non-pressure chronic ulcer of right heel and midfoot with unspecified severity QUALIFIERS: Diabetes mellitus type: type 2 Non-pressure ulcer stage: with fat layer exposed Qualified Code(s): E11.621 - Type 2 diabetes mellitus with foot ulcer; L97.412 - Non-pressure chronic ulcer of right heel and midfoot with fat layer exposed (3) Insulin dependent diabetes mellitus: (4) Type 2 diabetes mellitus with diabetic polyneuropathy: CODE(S): E11.42 - Type 2 diabetes mellitus with diabetic polyneuropathy QUALIFIERS: Diabetes mellitus halfway insulin use: with halfway use Qualified Code(s): E11.42 - Type 2 diabetes mellitus with diabetic polyneuropathy; Z79.4 - retirement (current) use of insulin (5) Pickwickian syndrome: CODE(S): E66.2 - Morbid (severe) obesity with alveolar hypoventilation (6) Hyperlipidemia: CODE(S): E78.5 - Hyperlipidemia, unspecified (7) Essential (primary) hypertension: CODE(S): I10 - Essential (primary) hypertension (8) Bilateral leg edema: CODE(S): R60.0 - Localized edema (9) Type 2 diabetes mellitus: CODE(S): E11.9 - Type 2 diabetes mellitus without complications QUALIFIERS: Diabetes mellitus intermediate frame tender insulin use: with halfway use Diabetes mellitus complication status: with neurologic complications Diabetes mellitus complication detail: with polyneuropathy Qualified Code(s): E11.42 - Type 2 diabetes mellitus with diabetic polyneuropathy; Z79.4 - exterminator helper (current) use of insulin (10) Atrial fibrillation: CODE(S): I48.91 - Unspecified atrial fibrillation (11) Morbid obesity: CODE(S): E66.01 - Morbid (severe) obesity due to excess calories (12) Dyspnea on exertion: CODE(S): R06.00 - Dyspnea, unspecified (13) Venous insufficiency (chronic) (peripheral): CODE(S): I87.2 - Venous insufficiency (chronic) (peripheral) (14) Chronic anticoagulation: CODE(S): Z79.01 - retirement (current) use of anticoagulants (15) Chronic anticoagulation: CODE(S): Z79.01 - exterminator helper (current) use of anticoagulants (16) Arthritis: CODE(S): M19.90 - Unspecified osteoarthritis, unspecified site (17) Former smoker: CODE(S): Z87.891 - Personal history of nicotine dependence (18) History of edema: CODE(S): Z87.898 - Personal history of other specified conditions (19) HTN (hypertension): CODE(S): I10 - Essential (primary) hypertension (20) BiPAP (biphasic positive airway pressure) dependence: CODE(S): Z99.89 - Dependence on other enabling machines and devices (21) Obstructive sleep apnea: CODE(S): G47.33 - Obstructive sleep apnea (adult) (pediatric) (22) History of amputation of toe: CODE(S): Z89.429 - Acquired absence of other toe(s), unspecified side PLAN: Plan This is a 69-year-old obese diabetic male with a Tucker grade I diabetic right heel ulceration. An EpiFix allograft was placed topically today, as well as a total contact cast. The allograft application represents the 5th such application of a cellular tissue product. The patient has been advised to optimize his nutritional intake as well as his diabetic control. Leg elevation has been advised as much as possible to minimize swelling and edema in the patient's lower extremities. Prolonged, idle sitting has been discouraged. The patient is to follow-up in 1 week with the Podiatry service for further management relative to his heel ulceration, as well as trimming of his toenails. Total time: 25 minutes
[2025-01-02 08:59] VITALS: BP 157/98; PULSE 98; RESP 18; TEMP 35.6; BMI 48.9
--- NOTE | 2025-01-02 10:18 | PN.PCM_ITS ---
History of Present Illness Date of Service: 01/02/25 Chief Complaint: Diabetic right heel ulceration History of Wound: This is a 69-year-old obese, diabetic male patient whose care has been assumed from Dr. Ramon Garcia, who is departing from our staff. The patient has a chronic ulceration on his right heel, associated with poorly controlled type 2 diabetes mellitus and diabetic polyneuropathy. The patient suffers from multiple other pre-existing medical problems, which are documented herein. The patient's most recent management has been by means of serial debridements, with an EpiFix allograft having been applied at the patient's prior visit on December 11, 2024. Offloading measures and total contact casting have also been a recent cornerstone of the patient's management. 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 Progress of Wound: Stable right heel wound no sign of infection. Subjective Subjective Patient is a 69-year-old diabetic male presenting to wound care center today for follow-up evaluation of full-thickness wound with amniotic skin graft substitute to the right heel with application of total contact cast. Patient has been nonweightbearing with Shira lift at the facility. He also has a this erythema to the left second digit and is unsure how it happened. His blood sugar has been well-controlled. He does deny trauma. Denies constitutional symptoms. No other pedal complaints at this time. Objective Data Objective Data Vital Signs: Vital Signs Temp Pulse Resp BP O2 Del Method 96.0 F L 98 18 157/98 H Room Air 01/02/25 08:59 01/02/25 08:59 01/02/25 08:59 01/02/25 08:59 01/02/25 08:59 Oxygen Delivery Method Room Air Weight: 146.057 kg Body Mass Index (BMI) 48.9 Physical Exam Narrative Vascular: DP and PT pulse are palpable. CFT is brisk. Skin temperature is warm to warm from proximal ankles to distal digit bilateral. Nonpitting edema with hemosiderin deposit appreciated bilateral extremity. Neurological:. Light touch is intact. Protective station is diminished. Patient does not respond to painful stimuli. Dermatological: Full-thickness wound to the right heel measuring 1.0 x 1.8 x 0.2 cm. Wound base is granular with no sign of infection. Evidence of blanchable erythema to the left second digit with full-thickness wound measuring 0.7 x 0.7 x 0.2 cm. Wound base is granular and cannot rule out infection at this time. Excisional debridement down to including subcutaneous tissue with a number 3 mm dermal curette to the right heel full-thickness wound done without incident. Predebridement measurement was eschar. Postdebridement measurement was 1.0 x 1.8 x 0.2 cm. EpiFix 18 mm was applied to the right heel full-thickness ulceration with 100% use. The graft site was free and clear of any infection. The wound/skin graft substitute was dressed with nonadherent bandage secured in place with Steri- Strips followed by bolster dressing as well as a total contact cast at 90 degrees. Excisional debridement down to including subcutaneous tissue of the full- thickness wound to the left second digit with a number 3 mm dermal curette done without incident. Predebridement measurement was eschar. Postdebridement measurement is 0.7 x 0.7 x 0.2 cm. Musculoskeletal: No pain to palpation to full-thickness wound bilateral. No pain with calf pressure. Debridement Note Debridement Note Debridement Free Text: Excisional debridement down to including subcutaneous tissue with a number 3 mm dermal curette to the right heel full-thickness wound done without incident. Predebridement measurement was eschar. Postdebridement measurement was 1.0 x 1.8 x 0.2 cm. EpiFix 18 mm was applied to the right heel full-thickness ulceration with 100% use. The graft site was free and clear of any infection. The wound/skin graft substitute was dressed with nonadherent bandage secured in place with Steri- Strips followed by bolster dressing as well as a total contact cast at 90 degrees. Excisional debridement down to including subcutaneous tissue of the full- thickness wound to the left second digit with a number 3 mm dermal curette done without incident. Predebridement measurement was eschar. Postdebridement measurement is 0.7 x 0.7 x 0.2 cm. Post-Debridement Measurements and Additional Note: Post-Debridement Measurements/Treatment WC - Nurse 1 - General Ulcer Assessment Start: 12/18/24 09:27 Freq: Status: Active Protocol: MARGY Activity Type Activity Date Activity User E-sign Co-sign Detail Recorded Client Recorded Date Recorded By Document 12/18/24 09:27 [facility] [id number] 12/18/24 09:35 BM Document 12/18/24 09:40 DS [id number] 12/18/24 09:41 DS Document 12/25/24 09:42 BM [id number] 12/25/24 09:54 BM Document 01/02/25 08:59 KW [id number] 01/02/25 09:05 KW 12/18/24 12/18/24 12/25/24 09:27 09:40 09:42 WC - Today's Visit Information Type of service Follow-up Visit Follow-up Visit (Physician/MOTION PICTURE ACTOR (Physician/MOTION PICTURE ACTOR ) ) Arrival Mode Wheelchair Wheelchair Transfer Assistance Shira Lift Shira Lift Transfer Assist (Other) 3 Patient Identification Verified (Name & Yes Yes ) Patient Requires Transmission-Based No No Precautions Height and Weight Height 5 ft 8 in Weight 146.057 kg Weight in Pounds 322.0 lbs Body Mass Index (BMI) 48.9 48.9 BMI Classification Obese Obese Vital Signs Temperature (97.8 F-99.1 F) 97.6 F L 97 F L Temperature Source Temporal Temporal Pulse Rate (60-100) 74 65 Pulse Location Monitor Monitor Respiratory Rate (12-18) 16 16 Respiratory rate source Observation Observation Oxygen Delivery Method Room Air Room Air Blood Pressure (90/60-120/80) 135/60 H 130/85 H Blood Pressure Mean (mm Hg) 85 100 Source Monitor Monitor Position Sitting Sitting Blood Pressure Location Left Arm Right Arm History Since Last Visit- (Skip if this is Patient's initial visit) Have you changed medications since your No No last visit? Any new allergies or adverse reactions No No Had a fall/change in ADL's that may No No increase risk of falls Signs or symptoms of abuse and/or No No neglect since last visit Have you been in the hospital since your No No last visit? Has dressing in place as prescribed Yes Yes Has compression in place as prescribed N/A Has offloadiing in place as prescribed Yes Yes Experienced any changes in pain level or No No management Left Footwear Diabetic Shoe Diabetic Shoe Right Footwear Total Contact Total Contact Cast Cast Pain Scale: 0-10 Numeric Is Patient Pain Free? Yes Yes Yes 01/02/25 08:59 WC - Today's Visit Information Type of service Follow-up Visit (Physician/MOTION PICTURE ACTOR ) Arrival Mode Wheelchair Transfer Assistance Shira Lift Transfer Assist (Other) Patient Identification Verified (Name & Yes ) Patient Requires Transmission-Based Precautions Height and Weight Height Weight Weight in Pounds Body Mass Index (BMI) 48.9 BMI Classification Obese Vital Signs Temperature (97.8 F-99.1 F) 96.0 F L Temperature Source Temporal Pulse Rate (60-100) 98 Pulse Location Monitor Respiratory Rate (12-18) 18 Respiratory rate source Monitor Oxygen Delivery Method Room Air Blood Pressure (90/60-120/80) 157/98 H Blood Pressure Mean (mm Hg) 117 Source Monitor Position Sitting Blood Pressure Location Left Arm History Since Last Visit- (Skip if this is Patient's initial visit) Have you changed medications since your No last visit? Any new allergies or adverse reactions No Had a fall/change in ADL's that may No increase risk of falls Signs or symptoms of abuse and/or No neglect since last visit Have you been in the hospital since your No last visit? Has dressing in place as prescribed Yes Has compression in place as prescribed Yes Has offloadiing in place as prescribed Yes Experienced any changes in pain level or No management Left Footwear Regular Shoe Right Footwear Total Contact Cast Pain Scale: 0-10 Numeric Is Patient Pain Free? Yes WC - Nurse 1 - General Ulcer Measurement Start: 12/18/24 09:27 Freq: Status: Active Protocol: Activity Type Activity Date Activity User E-sign Co-sign Detail Recorded Client Recorded Date Recorded By Document 12/18/24 09:27 [facility] [id number] 12/18/24 09:35 [facility] Document 12/25/24 09:42 [facility] [id number] 12/25/24 09:54 [facility] Document 01/02/25 08:59 KW [id number] 01/02/25 09:05 KW 12/18/24 12/25/24 01/02/25 09:27 09:42 08:59 Wound Center Nurse 1 4.R heel medial -Combined with other wound No No -Current Size (cm) - Length 1.6 0.9 1 -Current Size (cm) - Width 2.5 2.3 1.7 -Current Size (cm) - Depth 0.1 0.2 0.2 -Total Square Cm 4.00 2.07 1.7 -Date of Last Picture (Recall this 12/18/24 12/25/24 01/02/25 field) -Photo Taken Yes Yes -Epithelialization Medium 34-66% -Tunneling No -Undermining/Tunneling No -Exudate Amt Medium Medium Medium -Exudate Type Serosanguineous Serosanguineous Serosanguineous -Wound Margin Flat & Intact Thickened Distinct, Outline Attached -Granulation Amt Medium (34-66%) Large (67-100%) Large (67-100%) -Granulation Quality Red Red Colma,Red -Slough/Fibrin Yes -Necrosis Amt Medium (34-66%) Small (1-33%) -Necrotic Tissue Type Adherent Slough Adherent Slough -Texture (Lesvia-wound Skin Appearance) Assessed, Assessed Assessed Scarring -Moisture (Lesvia-wound Skin Appearance) Assessed,Dry/ Assessed Assessed,Dry/ Scaly Scaly -Color (Lesvia-wound Skin Appearance) Assessed Assessed Assessed -Temperature (Lesvia-wound Skin No Abnormality No Abnormality No Abnormality Appearance) (Pt Warm) (Pt Warm) (Pt Warm) -Tenderness on Palpation (Lesvia-wound No No No Skin Appearance) -Ulcer Cleansing Soap and Water Soap and Water Soap and Water -Foul Odor after Cleansing No No No -Anesthetic Used 5% Lidocaine 5% Lidocaine Cetacaine Gel Gel WC - Nurse 2 - General Ulcer CM Notes Start: 12/18/24 09:27 Freq: Status: Active Protocol: Activity Type Activity Date Activity User E-sign Co-sign Detail Recorded Client Recorded Date Recorded By Document 12/18/24 09:49 DS [id number] 12/18/24 10:00 DS Edit Result 12/18/24 09:49 DS (1) [id number] 12/18/24 10:07 DS Document 12/25/24 10:09 DS [id number] 12/25/24 10:19 DS Edit Result 12/25/24 10:09 DS (2) [id number] 12/25/24 10:49 DS Edit Result 12/25/24 10:09 DS (3) [id number] 12/25/24 10:53 DS Document 01/02/25 09:06 JF [id number] 01/02/25 09:16 JF (1) 4.R heel medial - Wound Comment(s) => sutures removed (2) 4.R heel medial - Type of Bioengineered Tissue => Epifix - Expiration Date => 06/20/29 - Product Lot Number => [id number] - Percent Used => 100 - Lot number of Saline Used => [id number] - Apply Skin Sub - 1st 25 sq cm - Feet => 1 - Epifix Application 1-4 (per sq cm) => 4 - Wound Comment(s) => pressure dressing used for 10mins (3) 4.R heel medial - Offloading => Yes - Type of Offloading => Total Contact Cast => (TCC) - Right ($) - Total Non-Weight Bearing to => Right Lower => Extremity - Assistive Device(s) => Wheelchair - Pressure Reduction => Wheelchair cushion 12/18/24 12/25/24 01/02/25 09:49 10:09 09:06 Wound Center Nurse 2 4-left 2nd toe -Time 09:15 -Correct Patient Yes -Correct Side, Site, Position Yes -Correct Procedure Yes -Procedure Performed Yes -Type of Procedure Debridement -Clinical Debridement Muscle / Fascia -Tissue Removed Muscle -Post Debridement (cm) - Length 0.7 -Post Debridement (cm) - Width 0.7 -Post Debridement (cm) - Depth 0.2 -Total Square (Post) (cm) 0.49 -Area of Debridement (cm) - Length 0.7 -Area of Debridement (cm) - Width 0.7 -Total Square (Area) (cm) 0.49 -Tunneling No -Undermining/Tunneling No -Circular Undermining No -Wound/Ulcer Outcome Not Healed -Ulcer Cleansing Rinsed/ Irrigated with Saline -Foul Odor after Cleansing No -Bioengineered Tissue No -Bleeding Controlled with Pressure -Treatment Response Procedure Tolerated Well -Offloading No -Debridement - Muscle / Fascia, 1st Yes 20sq cm 4.R heel medial -Time 09:50 10:09 09:06 -Correct Patient Yes Yes Yes -Correct Side, Site, Position Yes Yes Yes -Correct Procedure Yes Yes Yes -Procedure Performed Yes Yes Yes -Type of Procedure Debridement Debridement Debridement -Clinical Debridement Subcutaneous Subcutaneous Subcutaneous -Tissue Removed Subcutaneous Subcutaneous Subcutaneous -Post Debridement (cm) - Length 1.5 1.5 1 -Post Debridement (cm) - Width 2.7 2.1 1.8 -Post Debridement (cm) - Depth 0.2 0.2 0.2 -Total Square (Post) (cm) 4.05 3.15 1.8 -Area of Debridement (cm) - Length 1.5 1.5 1.0 -Area of Debridement (cm) - Width 2.7 2.1 1.8 -Total Square (Area) (cm) 4.05 3.15 1.80 -Tunneling No No No -Undermining/Tunneling No No No -Circular Undermining No No No -Wound/Ulcer Outcome Not Healed Not Healed Not Healed -Ulcer Cleansing Rinsed/ Rinsed/ Irrigated with Irrigated with Saline Saline -Foul Odor after Cleansing No No No -Bioengineered Tissue No No Yes -Type of Bioengineered Tissue Epicord Epifix Epifix 18mm Disc -Expiration Date 04/20/29 06/20/29 08/18/29 -Product Lot Number [id number] -Percent Used 100 100 100 -Lot number of Saline Used [id number] -Bleeding Controlled with Pressure Pressure,Silver Pressure Nitrate ($) -Treatment Response Procedure Procedure Procedure Tolerated Well Tolerated Well Tolerated Well -Offloading Yes Yes Yes -Type of Offloading Total Contact Total Contact Total Contact Cast (TCC) - Cast (TCC) - Cast (TCC) - Right ($) Right ($) Right ($) -Total Non-Weight Bearing to Right Lower Extremity -Assistive Device(s) Wheelchair -Pressure Reduction Wheelchair cushion -Debridement - Subq, 1st 20sq cm No No No -Apply Skin Sub - 1st 25 sq cm - Feet 1 1 1 -Epicord Application 1-4 (per sq cm) 6 -Epifix Application 1-4 (per sq cm) 4 -Epifix 18mm Disc Application 1-4 3 -Wound Comment(s) sutures removed pressure dressing used for 10mins Pain Scale: 0-10 Numeric Is Patient Pain Free? Yes Yes Yes - Nurse 3 - General Ulcer D/C NN Start: 12/18/24 09:27 Freq: Status: Active Protocol: Activity Type Activity Date Activity User E-sign Co-sign Detail Recorded Client Recorded Date Recorded By Document 12/18/24 10:14 ÁNGEL [id number] 12/18/24 10:16 Document 12/25/24 11:17 [facility] [id number] 12/25/24 11:18 BMF Document 01/02/25 09:23 KW [id number] 01/02/25 09:24 KW 12/18/24 12/25/24 01/02/25 10:14 11:17 09:23 Wound Care Center Nurse 3 4-left 2nd toe -Ulcer Cleansing Rinsed/ Irrigated with Saline -Other Dressing paint with betadine -Primary Dressing Covered/Secured with Dry Gauze, Secured with Tape 4.R heel medial -Primary Dressing Applied AMD Dressing Optilok 5x5 1/2 AMD Dressing 4x4 4x4 -Other Dressing epicord, tcc 3 AMD IS 4X8 -Primary Dressing Covered/Secured with Dry Gauze, Secured with Secured with Tape Tape -Other Covering betadine to sutured sites on legs. -AMD Dressing 4x4 2 1 -Optilok 5x5 1/2 1 -Wound Comment(s) TCC APPLIED BY CM AND Treatment Response Procedure Tolerated Well Pain Scale: 0-10 Numeric Is Patient Pain Free? Yes Yes Yes WC - Visit Discharge Discharge Condition Stable Stable Stable Ambulatory Status Wheelchair Wheelchair Wheelchair Transportation Private Auto ecf Medication Reconcilliation completed & Yes No provided to patient/care provider Clinical Summary of Care Provided Yes Yes Notes: shira lift x2. Facility Type Skilled Nursing Care Facility Assessment/Plan Assessment/Plan (1) Cellulitis of left toe: CODE(S): L03.032 - Cellulitis of left toe PLAN: Patient was examined and evaluated. All findings were discussed with the patient. All questions were answered to the patient's satisfaction. Excisional debridement down to including subcutaneous tissue with a number 3 mm dermal curette to the right heel full-thickness wound done without incident. Predebridement measurement was eschar. Postdebridement measurement was 1.0 x 1.8 x 0.2 cm. EpiFix 18 mm was applied to the right heel full-thickness ulceration with 100% use. The graft site was free and clear of any infection. The wound/skin graft substitute was dressed with nonadherent bandage secured in place with Steri- Strips followed by bolster dressing as well as a total contact cast at 90 degrees. Excisional debridement down to including subcutaneous tissue of the full- thickness wound to the left second digit with a number 3 mm dermal curette done without incident. Predebridement measurement was eschar. Postdebridement measurement is 0.7 x 0.7 x 0.2 cm. Culture was taken from the left foot second digit I will be sent for microbiology for culture and sensitivity. I will place the patient on oral antibiotics when results return. The patient will continue to be nonweightbearing to the bilateral lower extremity with assistance of a wheelchair and Shira lift at the facility. He will continue strict blood sugar control. No plan for surgical intervention at this time. Follow-up at the wound care center with Dr. Cerda in 1 week. (2) Non-pressure chronic ulcer of other part of right foot with fat layer exposed: CODE(S): L97.512 - Non-pressure chronic ulcer of other part of right foot with fat layer exposed (3) Non-pressure 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: CODE(S): L97.523 - Non-pressure 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
--- NOTE | 2025-01-02 14:14 | WC ---
PHOTO 01/01/25
--- NOTE | 2025-01-02 14:17 | WC ---
PHOTO 01/02/25 RIGHT HEEL
[2025-01-09 10:19] VITALS: BP 120/70; PULSE 80; RESP 18; TEMP 36.6; BMI 48.9
--- NOTE | 2025-01-09 13:25 | PCM.WC.PN ---
History of Present Illness Date of Service: 01/09/25 Chief Complaint: Diabetic right heel ulceration History of Wound: This is a 69-year-old obese, diabetic male patient whose care has been assumed from Dr. Ramon Garcia, who is departing from our staff. The patient has a chronic ulceration on his right heel, associated with poorly controlled type 2 diabetes mellitus and diabetic polyneuropathy. The patient suffers from multiple other pre-existing medical problems, which are documented herein. The patient's most recent management has been by means of serial debridements, with an EpiFix allograft having been applied at the patient's prior visit on December 11, 2024. Offloading measures and total contact casting have also been a recent cornerstone of the patient's management. 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 Progress of Wound: Stable right heel wound no sign of infection. New wound to the left heel and left second digit. Subjective Subjective Patient is a 69-year-old diabetic male presented wound care center today follow-up evaluation with amniotic skin graft substitute to the lateral right heel full-thickness wound with total contact cast application. Patient states that he has a new injury to the left heel secondary to rubbing on the total contact cast. He will not be prescribed doxycycline 100 mg twice daily secondary to culture and sensitivity for microbiology. Blood sugar well-controlled. Denies constitutional symptoms. No other pedal complaints at this time. Objective Data Objective Data Vital Signs: Vital Signs Temp Pulse Resp BP O2 Del Method 97.9 F 80 18 120/70 Room Air 01/09/25 10:19 01/09/25 10:19 01/09/25 10:19 01/09/25 10:19 01/09/25 10:19 Oxygen Delivery Method Room Air Weight: 146.057 kg Body Mass Index (BMI) 48.9 Lab / Micro Data Micro: Microbiology 01/02/25 14:14 Ulcer, Decubitus - Toe Gram Stain - Final 01/02/25 14:14 Ulcer, Decubitus - Toe Wound Culture - Final Meth. resistant Staph. aureus 01/02/25 14:14 Ulcer, Decubitus - Toe Anaerobic Culture - Final No anaerobic bacteria isolated. Physical Exam Narrative Vascular: DP and PT pulse are palpable. CFT is brisk. Skin temperature is warm to warm from proximal ankles to distal digit bilateral. Nonpitting edema with hemosiderin deposit appreciated bilateral extremity. Evidence of erythema to the left heel and left second digit. Neurological:. Light touch is intact. Protective station is diminished. Patient does not respond to painful stimuli. Dermatological: Full-thickness wound to the right heel measuring 1.2 x 1.3 x 0.1 cm wound base is granular with no sign of infection. Evidence of blanchable erythema to the left second digit with full-thickness wound measuring 0.4 x 0.6 x 0.1 cm. Wound base is fibrogranular in nature. Full-thickness wound to the left heel with periwound erythema measuring 0.4 x 0.5 x 0.1 cm. Excisional debridement down to including subcutaneous tissue with a number 3 mm dermal curette to the right heel full-thickness wound done without incident. Predebridement measurement was 1.0 x 1.1 x 0.1 cm. Postdebridement measurement was 1.2 x 1.3 x 0.1 cm. EpiFix 18 mm was applied to the right heel full-thickness ulceration with 100% use. The graft site was free and clear of any infection. The wound/skin graft substitute was dressed with nonadherent bandage secured in place with Steri-Strips followed by bolster dressing as well as a total contact cast at 90 degrees. Excisional debridement down to including subcutaneous tissue of the full-thickness wound to the left second digit with a number 3 mm dermal curette done without incident. Predebridement measurement was eschar. Postdebridement measurement is 0.4 x 0.6 x 0.1 cm. Excisional debridement down to and including subcutaneous tissue of the full-thickness wound to the left heel with a number 3 mm dermal curette done without incident. Predebridement measurement was 0.3 x 0.3 x 0.1 cm. Postdebridement measurement is 0.4 x 0.5 x 0.1 cm. Musculoskeletal: No pain to palpation to full-thickness wound bilateral. No pain with calf pressure. Debridement Note Debridement Note Debridement Free Text: Excisional debridement down to including subcutaneous tissue with a number 3 mm dermal curette to the right heel full-thickness wound done without incident. Predebridement measurement was 1.0 x 1.1 x 0.1 cm. Postdebridement measurement was 1.2 x 1.3 x 0.1 cm. EpiFix 18 mm was applied to the right heel full-thickness ulceration with 100% use. The graft site was free and clear of any infection. The wound/skin graft substitute was dressed with nonadherent bandage secured in place with Steri-Strips followed by bolster dressing as well as a total contact cast at 90 degrees. Excisional debridement down to including subcutaneous tissue of the full-thickness wound to the left second digit with a number 3 mm dermal curette done without incident. Predebridement measurement was eschar. Postdebridement measurement is 0.4 x 0.6 x 0.1 cm. Excisional debridement down to and including subcutaneous tissue of the full-thickness wound to the left heel with a number 3 mm dermal curette done without incident. Predebridement measurement was 0.3 x 0.3 x 0.1 cm. Postdebridement measurement is 0.4 x 0.5 x 0.1 cm. Post-Debridement Measurements and Additional Note: Post-Debridement Measurements/Treatment - Nurse 1 - General Ulcer Assessment Start: 12/18/24 09:27 Freq: Status: Active Protocol: MARGY Activity Type Activity Date Activity User E-sign Co-sign Detail Recorded Client Recorded Date Recorded By Document 12/18/24 09:27 [facility] [id number] 12/18/24 09:35 BM Document 12/18/24 09:40 DS [id number] 12/18/24 09:41 DS Document 12/25/24 09:42 [facility] [id number] 12/25/24 09:54 [facility] Document 01/02/25 08:59 KW [id number] 01/02/25 09:05 KW Document 01/09/25 10:19 KW [id number] 01/09/25 10:29 KW 12/18/24 12/18/24 12/25/24 09:27 09:40 09:42 - Today's Visit Information Type of service Follow-up Visit Follow-up Visit (Physician/PROFESSOR OF JOURNALISM (Physician/PROFESSOR OF JOURNALISM ) ) Arrival Mode Wheelchair Wheelchair Transfer Assistance Shira Lift Shira Lift Transfer Assist (Other) 3 Patient Identification Verified (Name & Yes Yes ) Patient Requires Transmission-Based No No Precautions Height and Weight Height 5 ft 8 in Weight 146.057 kg Weight in Pounds 322.0 lbs Body Mass Index (BMI) 48.9 48.9 BMI Classification Obese Obese Vital Signs Temperature (97.8 F-99.1 F) 97.6 F L 97 F L Temperature Source Temporal Temporal Pulse Rate (60-100) 74 65 Pulse Location Monitor Monitor Respiratory Rate (12-18) 16 16 Respiratory rate source Observation Observation Oxygen Delivery Method Room Air Room Air Blood Pressure (90/60-120/80) 135/60 H 130/85 H Blood Pressure Mean (mm Hg) 85 100 Source Monitor Monitor Position Sitting Sitting Blood Pressure Location Left Arm Right Arm History Since Last Visit- (Skip if this is Patient's initial visit) Have you changed medications since your No No last visit? Any new allergies or adverse reactions No No Had a fall/change in ADL's that may No No increase risk of falls Signs or symptoms of abuse and/or No No neglect since last visit Have you been in the hospital since your No No last visit? Has dressing in place as prescribed Yes Yes Has compression in place as prescribed N/A Has offloadiing in place as prescribed Yes Yes Experienced any changes in pain level or No No management Left Footwear Diabetic Shoe Diabetic Shoe Right Footwear Total Contact Total Contact Cast Cast Pain Scale: 0-10 Numeric Is Patient Pain Free? Yes Yes Yes 01/02/25 01/09/25 08:59 10:19 WC - Today's Visit Information Type of service Follow-up Visit Follow-up Visit (Physician/PROFESSOR OF JOURNALISM (Physician/PROFESSOR OF JOURNALISM ) ) Arrival Mode Wheelchair Wheelchair Transfer Assistance Shira Lift Shira Lift Transfer Assist (Other) Patient Identification Verified (Name & Yes Yes ) Patient Requires Transmission-Based Precautions Height and Weight Height Weight Weight in Pounds Body Mass Index (BMI) 48.9 48.9 BMI Classification Obese Obese Vital Signs Temperature (97.8 F-99.1 F) 96.0 F L 97.9 F Temperature Source Temporal Temporal Pulse Rate (60-100) 98 80 Pulse Location Monitor Monitor Respiratory Rate (12-18) 18 18 Respiratory rate source Monitor Observation Oxygen Delivery Method Room Air Room Air Blood Pressure (90/60-120/80) 157/98 H 120/70 Blood Pressure Mean (mm Hg) 117 86 Source Monitor Monitor Position Sitting Sitting Blood Pressure Location Left Arm Left Arm History Since Last Visit- (Skip if this is Patient's initial visit) Have you changed medications since your No No last visit? Any new allergies or adverse reactions No No Had a fall/change in ADL's that may No No increase risk of falls Signs or symptoms of abuse and/or No No neglect since last visit Have you been in the hospital since your No No last visit? Has dressing in place as prescribed Yes Yes Has compression in place as prescribed Yes N/A Has offloadiing in place as prescribed Yes Yes Experienced any changes in pain level or No No management Left Footwear Regular Shoe Regular Shoe Right Footwear Total Contact Total Contact Cast Cast Pain Scale: 0-10 Numeric Is Patient Pain Free? Yes Yes WC - Nurse 1 - General Ulcer Measurement Start: 12/18/24 09:27 Freq: Status: Active Protocol: Activity Type Activity Date Activity User E-sign Co-sign Detail Recorded Client Recorded Date Recorded By Document 12/18/24 09:27 BM [id number] 12/18/24 09:35 BMF Document 12/25/24 09:42 BMF [id number] 12/25/24 09:54 BM Document 01/02/25 08:59 KW [id number] 01/02/25 09:05 KW Document 01/09/25 10:19 KW [id number] 01/09/25 10:29 KW 12/18/24 12/25/24 01/02/25 09:27 09:42 08:59 Wound Center Nurse 1 #6 LT HEEL -Current Size (cm) - Length -Current Size (cm) - Width -Current Size (cm) - Depth -Total Square Cm -Date of Last Picture (Recall this field) -Exudate Amt -Exudate Type -Wound Margin -Granulation Amt -Granulation Quality -Necrosis Amt -Necrotic Tissue Type -Texture (Lesvia-wound Skin Appearance) -Moisture (Lesvia-wound Skin Appearance) -Color (Lesvia-wound Skin Appearance) -Temperature (Lesvia-wound Skin Appearance) -Tenderness on Palpation (Lesvia-wound Skin Appearance) -Ulcer Cleansing -Foul Odor after Cleansing -Anesthetic Used 5-left 2nd toe -Current Size (cm) - Length -Current Size (cm) - Width -Current Size (cm) - Depth -Total Square Cm -Date of Last Picture (Recall this field) -Exudate Amt -Exudate Type -Wound Margin -Granulation Amt -Granulation Quality -Necrosis Amt -Necrotic Tissue Type -Texture (Lesvia-wound Skin Appearance) -Moisture (Lesvia-wound Skin Appearance) -Color (Lesvia-wound Skin Appearance) -Temperature (Lesvia-wound Skin Appearance) -Tenderness on Palpation (Lesvia-wound Skin Appearance) -Ulcer Cleansing -Foul Odor after Cleansing -Anesthetic Used 4.R heel medial -Combined with other wound No No -Current Size (cm) - Length 1.6 0.9 1 -Current Size (cm) - Width 2.5 2.3 1.7 -Current Size (cm) - Depth 0.1 0.2 0.2 -Total Square Cm 4.00 2.07 1.7 -Date of Last Picture (Recall this 12/18/24 12/25/24 01/02/25 field) -Photo Taken Yes Yes -Epithelialization Medium 34-66% -Tunneling No -Undermining/Tunneling No -Exudate Amt Medium Medium Medium -Exudate Type Serosanguineous Serosanguineous Serosanguineous -Wound Margin Flat & Intact Thickened Distinct, Outline Attached -Granulation Amt Medium (34-66%) Large (67-100%) Large (67-100%) -Granulation Quality Red Red Allyn,Red -Slough/Fibrin Yes -Necrosis Amt Medium (34-66%) Small (1-33%) -Necrotic Tissue Type Adherent Slough Adherent Slough -Texture (Lesvia-wound Skin Appearance) Assessed, Assessed Assessed Scarring -Moisture (Lesvia-wound Skin Appearance) Assessed,Dry/ Assessed Assessed,Dry/ Scaly Scaly -Color (Lesvia-wound Skin Appearance) Assessed Assessed Assessed -Temperature (Lesvia-wound Skin No Abnormality No Abnormality No Abnormality Appearance) (Pt Warm) (Pt Warm) (Pt Warm) -Tenderness on Palpation (Lesvia-wound No No No Skin Appearance) -Ulcer Cleansing Soap and Water Soap and Water Soap and Water -Foul Odor after Cleansing No No No -Anesthetic Used 5% Lidocaine 5% Lidocaine Cetacaine Gel Gel 01/09/25 10:19 Wound Center Nurse 1 #6 LT HEEL -Current Size (cm) - Length 0.1 -Current Size (cm) - Width 0.1 -Current Size (cm) - Depth 0.1 -Total Square Cm 0.01 -Date of Last Picture (Recall this 01/09/25 field) -Exudate Amt Medium -Exudate Type Serosanguineous -Wound Margin Thickened -Granulation Amt Small (1-33%) -Granulation Quality Allyn -Necrosis Amt Large (67-100%) -Necrotic Tissue Type Adherent Slough -Texture (Lesvia-wound Skin Appearance) Assessed -Moisture (Lesvia-wound Skin Appearance) Assessed -Color (Lesvia-wound Skin Appearance) Assessed, Erythema -Temperature (Lesvia-wound Skin No Abnormality Appearance) (Pt Warm) -Tenderness on Palpation (Lesvia-wound No Skin Appearance) -Ulcer Cleansing Rinsed/ Irrigated with Saline -Foul Odor after Cleansing No -Anesthetic Used 5% Lidocaine Gel 5-left 2nd toe -Current Size (cm) - Length 0.1 -Current Size (cm) - Width 0.1 -Current Size (cm) - Depth 0.1 -Total Square Cm 0.01 -Date of Last Picture (Recall this 01/09/25 field) -Exudate Amt Medium -Exudate Type Serosanguineous -Wound Margin Distinct, Outline Attached -Granulation Amt Large (67-100%) -Granulation Quality Allyn -Necrosis Amt Small (1-33%) -Necrotic Tissue Type Adherent Slough -Texture (Lesvia-wound Skin Appearance) Assessed -Moisture (Lesvia-wound Skin Appearance) Maceration -Color (Lesvia-wound Skin Appearance) Assessed, Erythema -Temperature (Lesvia-wound Skin No Abnormality Appearance) (Pt Warm) -Tenderness on Palpation (Lesvia-wound No Skin Appearance) -Ulcer Cleansing Rinsed/ Irrigated with Saline -Foul Odor after Cleansing No -Anesthetic Used 5% Lidocaine Gel 4.R heel medial -Combined with other wound -Current Size (cm) - Length 0.1 -Current Size (cm) - Width 0.1 -Current Size (cm) - Depth 0.1 -Total Square Cm 0.01 -Date of Last Picture (Recall this 01/09/25 field) -Photo Taken -Epithelialization -Tunneling -Undermining/Tunneling -Exudate Amt Medium -Exudate Type Serosanguineous -Wound Margin Thickened -Granulation Amt Medium (34-66%) -Granulation Quality Allyn -Slough/Fibrin -Necrosis Amt Medium (34-66%) -Necrotic Tissue Type Adherent Slough -Texture (Lesvia-wound Skin Appearance) Assessed,Callus -Moisture (Lesvia-wound Skin Appearance) Assessed -Color (Lesvia-wound Skin Appearance) Assessed -Temperature (Lesvia-wound Skin No Abnormality Appearance) (Pt Warm) -Tenderness on Palpation (Lesvia-wound No Skin Appearance) -Ulcer Cleansing Soap and Water -Foul Odor after Cleansing No -Anesthetic Used 5% Lidocaine Gel WC - Nurse 2 - General Ulcer CM Notes Start: 12/18/24 09:27 Freq: Status: Active Protocol: Activity Type Activity Date Activity User E-sign Co-sign Detail Recorded Client Recorded Date Recorded By Document 12/18/24 09:49 DS [id number] 12/18/24 10:00 DS Edit Result 12/18/24 09:49 DS (1) [id number] 12/18/24 10:07 DS Document 12/25/24 10:09 DS [id number] 12/25/24 10:19 DS Edit Result 12/25/24 10:09 DS (2) [id number] 12/25/24 10:49 DS Edit Result 12/25/24 10:09 DS (3) [id number] 12/25/24 10:53 DS Document 01/02/25 09:06 JF [id number] 01/02/25 09:16 JF Document 01/09/25 10:38 JF [id number] 01/09/25 10:44 JF (1) 4.R heel medial - Wound Comment(s) => sutures removed (2) 4.R heel medial - Type of Bioengineered Tissue => Epifix - Expiration Date => 06/20/29 - Product Lot Number => [id number] - Percent Used => 100 - Lot number of Saline Used => [id number] - Apply Skin Sub - 1st 25 sq cm - Feet => 1 - Epifix Application 1-4 (per sq cm) => 4 - Wound Comment(s) => pressure dressing used for 10mins (3) 4.R heel medial - Offloading => Yes - Type of Offloading => Total Contact Cast => (TCC) - Right ($) - Total Non-Weight Bearing to => Right Lower => Extremity - Assistive Device(s) => Wheelchair - Pressure Reduction => Wheelchair cushion 12/18/24 12/25/24 01/02/25 09:49 10:09 09:06 Wound Center Nurse 2 #6 LT HEEL -Time -Correct Patient -Correct Side, Site, Position -Correct Procedure -Procedure Performed -Type of Procedure -Clinical Debridement -Tissue Removed -Post Debridement (cm) - Length -Post Debridement (cm) - Width -Post Debridement (cm) - Depth -Total Square (Post) (cm) -Area of Debridement (cm) - Length -Area of Debridement (cm) - Width -Total Square (Area) (cm) -Tunneling -Undermining/Tunneling -Circular Undermining -Wound/Ulcer Outcome -Ulcer Cleansing -Foul Odor after Cleansing -Bioengineered Tissue -Bleeding Controlled with -Treatment Response -Offloading -Debridement - Subq, 1st 20sq cm 5-left 2nd toe -Time 09:15 -Correct Patient Yes -Correct Side, Site, Position Yes -Correct Procedure Yes -Procedure Performed Yes -Type of Procedure Debridement -Clinical Debridement Muscle / Fascia -Tissue Removed Muscle -Post Debridement (cm) - Length 0.7 -Post Debridement (cm) - Width 0.7 -Post Debridement (cm) - Depth 0.2 -Total Square (Post) (cm) 0.49 -Area of Debridement (cm) - Length 0.7 -Area of Debridement (cm) - Width 0.7 -Total Square (Area) (cm) 0.49 -Tunneling No -Undermining/Tunneling No -Circular Undermining No -Wound/Ulcer Outcome Not Healed -Ulcer Cleansing Rinsed/ Irrigated with Saline -Foul Odor after Cleansing No -Bioengineered Tissue No -Bleeding Controlled with Pressure -Treatment Response Procedure Tolerated Well -Offloading No -Debridement - Subq, 1st 20sq cm -Debridement - Muscle / Fascia, 1st Yes 20sq cm 4.R heel medial -Time 09:50 10:09 09:06 -Correct Patient Yes Yes Yes -Correct Side, Site, Position Yes Yes Yes -Correct Procedure Yes Yes Yes -Procedure Performed Yes Yes Yes -Type of Procedure Debridement Debridement Debridement -Clinical Debridement Subcutaneous Subcutaneous Subcutaneous -Tissue Removed Subcutaneous Subcutaneous Subcutaneous -Post Debridement (cm) - Length 1.5 1.5 1 -Post Debridement (cm) - Width 2.7 2.1 1.8 -Post Debridement (cm) - Depth 0.2 0.2 0.2 -Total Square (Post) (cm) 4.05 3.15 1.8 -Area of Debridement (cm) - Length 1.5 1.5 1.0 -Area of Debridement (cm) - Width 2.7 2.1 1.8 -Total Square (Area) (cm) 4.05 3.15 1.80 -Tunneling No No No -Undermining/Tunneling No No No -Circular Undermining No No No -Wound/Ulcer Outcome Not Healed Not Healed Not Healed -Ulcer Cleansing Rinsed/ Rinsed/ Irrigated with Irrigated with Saline Saline -Foul Odor after Cleansing No No No -Bioengineered Tissue No No Yes -Type of Bioengineered Tissue Epicord Epifix Epifix 18mm Disc -Expiration Date 04/20/29 06/20/29 08/18/29 -Product Lot Number [id number] -Percent Used 100 100 100 -Lot number of Saline Used [id number] -Bleeding Controlled with Pressure Pressure,Silver Pressure Nitrate ($) -Treatment Response Procedure Procedure Procedure Tolerated Well Tolerated Well Tolerated Well -Offloading Yes Yes Yes -Type of Offloading Total Contact Total Contact Total Contact Cast (TCC) - Cast (TCC) - Cast (TCC) - Right ($) Right ($) Right ($) -Total Non-Weight Bearing to Right Lower Extremity -Assistive Device(s) Wheelchair -Pressure Reduction Wheelchair cushion -Debridement - Subq, 1st 20sq cm No No No -Apply Skin Sub - 1st 25 sq cm - Feet 1 1 1 -Epicord Application 1-4 (per sq cm) 6 -Epifix Application 1-4 (per sq cm) 4 -Epifix 18mm Disc Application 1-4 3 -Wound Comment(s) sutures removed pressure dressing used for 10mins Pain Scale: 0-10 Numeric Is Patient Pain Free? Yes Yes Yes 01/09/25 10:38 Wound Center Nurse 2 #6 LT HEEL -Time 10:38 -Correct Patient Yes -Correct Side, Site, Position Yes -Correct Procedure Yes -Procedure Performed Yes -Type of Procedure Debridement -Clinical Debridement Subcutaneous -Tissue Removed Subcutaneous -Post Debridement (cm) - Length 0.4 -Post Debridement (cm) - Width 0.5 -Post Debridement (cm) - Depth 0.1 -Total Square (Post) (cm) 0.20 -Area of Debridement (cm) - Length 0.4 -Area of Debridement (cm) - Width 0.5 -Total Square (Area) (cm) 0.20 -Tunneling No -Undermining/Tunneling No -Circular Undermining No -Wound/Ulcer Outcome Not Healed -Ulcer Cleansing Rinsed/ Irrigated with Saline -Foul Odor after Cleansing No -Bioengineered Tissue No -Bleeding Controlled with Pressure -Treatment Response Procedure Tolerated Well -Offloading No -Debridement - Subq, 1st 20sq cm Yes 5-left 2nd toe -Time 10:39 -Correct Patient Yes -Correct Side, Site, Position Yes -Correct Procedure Yes -Procedure Performed Yes -Type of Procedure Debridement -Clinical Debridement Subcutaneous -Tissue Removed Subcutaneous -Post Debridement (cm) - Length 0.4 -Post Debridement (cm) - Width 0.6 -Post Debridement (cm) - Depth 0.1 -Total Square (Post) (cm) 0.24 -Area of Debridement (cm) - Length 0.4 -Area of Debridement (cm) - Width 0.6 -Total Square (Area) (cm) 0.24 -Tunneling No -Undermining/Tunneling No -Circular Undermining No -Wound/Ulcer Outcome Not Healed -Ulcer Cleansing Rinsed/ Irrigated with Saline -Foul Odor after Cleansing No -Bioengineered Tissue No -Bleeding Controlled with Pressure -Treatment Response Procedure Tolerated Well -Offloading No -Debridement - Subq, 1st 20sq cm No -Debridement - Muscle / Fascia, 1st 20sq cm 4.R heel medial -Time 10:43 -Correct Patient Yes -Correct Side, Site, Position Yes -Correct Procedure Yes -Procedure Performed Yes -Type of Procedure Debridement -Clinical Debridement Subcutaneous -Tissue Removed Subcutaneous -Post Debridement (cm) - Length 1.2 -Post Debridement (cm) - Width 1.3 -Post Debridement (cm) - Depth 0.1 -Total Square (Post) (cm) 1.56 -Area of Debridement (cm) - Length 1.2 -Area of Debridement (cm) - Width 1.3 -Total Square (Area) (cm) 1.56 -Tunneling No -Undermining/Tunneling No -Circular Undermining No -Wound/Ulcer Outcome Not Healed -Ulcer Cleansing Rinsed/ Irrigated with Saline -Foul Odor after Cleansing No -Bioengineered Tissue Yes -Type of Bioengineered Tissue Epifix 18mm Disc -Expiration Date 08/18/29 -Product Lot Number [id number] -Percent Used 100 -Lot number of Saline Used [id number] -Bleeding Controlled with Pressure -Treatment Response Procedure Tolerated Well -Offloading Yes -Type of Offloading Total Contact Cast (TCC) - Right ($) -Total Non-Weight Bearing to -Assistive Device(s) -Pressure Reduction -Debridement - Subq, 1st 20sq cm No -Apply Skin Sub - 1st 25 sq cm - Feet 1 -Epicord Application 1-4 (per sq cm) -Epifix Application 1-4 (per sq cm) -Epifix 18mm Disc Application 1-4 3 -Wound Comment(s) Pain Scale: 0-10 Numeric Is Patient Pain Free? Yes - Nurse 3 - General Ulcer D/C NN Start: 12/18/24 09:27 Freq: Status: Active Protocol: Activity Type Activity Date Activity User E-sign Co-sign Detail Recorded Client Recorded Date Recorded By Document 12/18/24 10:14 [id number] 12/18/24 10:16 Document 12/25/24 11:17 [facility] [id number] 12/25/24 11:18 [facility] Document 01/02/25 09:23 KW [id number] 01/02/25 09:24 KW Document 01/09/25 11:12 KW [id number] 01/09/25 11:13 KW 12/18/24 12/25/24 01/02/25 10:14 11:17 09:23 Wound Care Center Nurse 3 #6 LT HEEL -Other Dressing -Primary Dressing Covered/Secured with 5-left 2nd toe -Ulcer Cleansing Rinsed/ Irrigated with Saline -Other Dressing paint with betadine -Primary Dressing Covered/Secured with Dry Gauze, Secured with Tape 4.R heel medial -Primary Dressing Applied AMD Dressing Optilok 5x5 1/2 AMD Dressing 4x4 4x4 -Other Dressing epicord, tcc 3 AMD IS 4X8 -Primary Dressing Covered/Secured with Dry Gauze, Secured with Secured with Tape Tape -Other Covering betadine to sutured sites on legs. -AMD Dressing 4x4 2 1 -Optilok 5x5 1/2 1 -Wound Comment(s) TCC APPLIED BY RUSSEL AND Treatment Response Procedure Tolerated Well Pain Scale: 0-10 Numeric Is Patient Pain Free? Yes Yes Yes - Visit Discharge Discharge Condition Stable Stable Stable Ambulatory Status Wheelchair Wheelchair Wheelchair Transportation Private Auto ecf Medication Reconcilliation completed & Yes No provided to patient/care provider Clinical Summary of Care Provided Yes Yes Notes: shira lift x2. Facility Type Bundling Machine Operator Care Facility 01/09/25 11:12 Wound Care Center Nurse 3 #6 LT HEEL -Other Dressing BETADINE PAINTED -Primary Dressing Covered/Secured with Dry Gauze & Roll Gauze, Secured with Tape 5-left 2nd toe -Ulcer Cleansing -Other Dressing BETADINE PAINTED -Primary Dressing Covered/Secured with Dry Gauze, Secured with Tape 4.R heel medial -Primary Dressing Applied AMD Dressing 4x4 -Other Dressing -Primary Dressing Covered/Secured with Secured with Tape -Other Covering -AMD Dressing 4x4 1 -Optilok 5x5 1/2 -Wound Comment(s) Treatment Response Pain Scale: 0-10 Numeric Is Patient Pain Free? Yes WC - Visit Discharge Discharge Condition Stable Ambulatory Status Wheelchair Transportation Medication Reconcilliation completed & No provided to patient/care provider Clinical Summary of Care Provided Yes Notes: TCC REAPPLIED ON RT Facility Type Assessment/Plan Assessment/Plan (1) Cellulitis of left toe: CODE(S): L03.032 - Cellulitis of left toe PLAN: Patient was examined and evaluated. All findings were discussed with the patient. All questions were answered to the patient's satisfaction. Excisional debridement down to including subcutaneous tissue with a number 3 mm dermal curette to the right heel full-thickness wound done without incident. Predebridement measurement was 1.0 x 1.1 x 0.1 cm. Postdebridement measurement was 1.2 x 1.3 x 0.1 cm. EpiFix 18 mm was applied to the right heel full-thickness ulceration with 100% use. The graft site was free and clear of any infection. The wound/skin graft substitute was dressed with nonadherent bandage secured in place with Steri-Strips followed by bolster dressing as well as a total contact cast at 90 degrees. Excisional debridement down to including subcutaneous tissue of the full-thickness wound to the left second digit with a number 3 mm dermal curette done without incident. Predebridement measurement was eschar. Postdebridement measurement is 0.4 x 0.6 x 0.1 cm. Excisional debridement down to and including subcutaneous tissue of the full-thickness wound to the left heel with a number 3 mm dermal curette done without incident. Predebridement measurement was 0.3 x 0.3 x 0.1 cm. Postdebridement measurement is 0.4 x 0.5 x 0.1 cm. The left foot was wiped clean and patted dry. Betadine paint was applied to the left heel and left second digit followed by dry sterile dressing and light compression wrap. Patient will perform daily dressing change in snf facility. Reviewed the patient's culture and sensitivity show microbial growth and the patient will be placed on doxycycline 100 mg twice daily for infection control. Continue to offload bilateral lower extremity. Continue strict blood sugar control. Follow-up at the wound care center with Dr. Cerda in 1 week. 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
--- NOTE | 2025-01-10 08:29 | WC ---
PHOTO-LEFT HEEL 01/09/25
--- NOTE | 2025-01-10 08:31 | WC ---
PHOTO-RIGHT HEEL 01/09/25
[2025-01-16 10:26] VITALS: BP 108/55; PULSE 73; RESP 18; TEMP 36.2; BMI 48.9
--- NOTE | 2025-01-16 13:32 | PN.PCM_ITS ---
History of Present Illness Date of Service: 01/16/25 Chief Complaint: Diabetic right heel ulceration History of Wound: This is a 69-year-old obese, diabetic male patient whose care has been assumed from Dr. Ramon Garcia, who is departing from our staff. The patient has a chronic ulceration on his right heel, associated with poorly controlled type 2 diabetes mellitus and diabetic polyneuropathy. The patient suffers from multiple other pre-existing medical problems, which are documented herein. The patient's most recent management has been by means of serial debridements, with an EpiFix allograft having been applied at the patient's prior visit on December 11, 2024. Offloading measures and total contact casting have also been a recent cornerstone of the patient's management. 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 Progress of Wound: Stable right heel wound no sign of infection. Wounds to the left heel and second digit are stable with eschar. Subjective Subjective Patient is a 69-year-old diabetic male presented wound care center today for follow-up evaluation of full-thickness wound with amnio skin graft substitute total contact cast to the right lower extremity. He has been doing dressing changes as discussed to the left heel and left second digit. He admits those wounds are now healed. He is taking antibiotics as prescribed. He denies any new onset of trauma. He is compliant with nonweightbearing status to the right lower extremity. Denies constitutional symptoms. No other pedal complaints at this time. Objective Data Objective Data Vital Signs: Vital Signs Temp Pulse Resp BP O2 Del Method 97.1 F L 73 18 108/55 L Room Air 01/16/25 10:26 01/16/25 10:26 01/16/25 10:26 01/16/25 10:26 01/16/25 10:26 Oxygen Delivery Method Room Air Weight: 146.057 kg Body Mass Index (BMI) 48.9 Lab / Micro Data Micro: Microbiology 01/02/25 14:14 Ulcer, Decubitus - Toe Gram Stain - Final 01/02/25 14:14 Ulcer, Decubitus - Toe Wound Culture - Final Meth. resistant Staph. aureus 01/02/25 14:14 Ulcer, Decubitus - Toe Anaerobic Culture - Final No anaerobic bacteria isolated. Physical Exam Narrative Vascular: DP and PT pulse are palpable. CFT is brisk. Skin temperature is warm to warm from proximal ankles to distal digit bilateral. Nonpitting edema with hemosiderin deposit appreciated bilateral extremity. Improved erythema to the left heel and left second digit. Neurological:. Light touch is intact. Protective station is diminished. Patient does not respond to painful stimuli. Dermatological: Full-thickness wound to the right heel measuring 0.6 x 1.1 x 0.1 cm. Wound base is granular with no sign of infection. Full-thickness wounds to the left heel and left second digit shows sanguinous crust with no new wound at this time. Excisional debridement down to including subcutaneous tissue with a number 3 mm dermal curette to the right heel full-thickness wound done without incident. Predebridement measurement was sanguinous crust postdebridement measurement was 0.6 x 1.1 x 0.1 cm. EpiFix 18 mm was applied to the right heel full-thickness ulceration with 100% use. The graft site was free and clear of any infection. The wound/skin graft substitute was dressed with nonadherent bandage secured in place with Steri- Strips followed by bolster dressing as well as a total contact cast at 90 degrees. Musculoskeletal: No pain to palpation to full-thickness wound bilateral. No pain with calf pressure. Debridement Note Debridement Note Debridement Free Text: Excisional debridement down to including subcutaneous tissue with a number 3 mm dermal curette to the right heel full-thickness wound done without incident. Predebridement measurement was sanguinous crust pos tdebridement measurement was 0.6 x 1.1 x 0.1 cm. EpiFix 18 mm was applied to the right heel full-thickness ulceration with 100% use. The graft site was free and clear of any infection. The wound/skin graft substitute was dressed with nonadherent bandage secured in place with Steri- Strips followed by bolster dressing as well as a total contact cast at 90 degrees. Post-Debridement Measurements and Additional Note: Post-Debridement Measurements/Treatment WC - Nurse 1 - General Ulcer Assessment Start: 12/18/24 09:27 Freq: Status: Active Protocol: AWILDAEXT Activity Type Activity Date Activity User E-sign Co-sign Detail Recorded Client Recorded Date Recorded By Document 12/18/24 09:27 BMF [id number] 12/18/24 09:35 BMF Document 12/18/24 09:40 [id number] 12/18/24 09:41 DS Document 12/25/24 09:42 BMF [id number] 12/25/24 09:54 BMF Document 01/02/25 08:59 KW [id number] 01/02/25 09:05 KW Document 01/09/25 10:19 KW [id number] 01/09/25 10:29 KW Document 01/16/25 10:26 KW [id number] 01/16/25 10:39 KW 12/18/24 12/18/24 12/25/24 09:27 09:40 09:42 WC - Today's Visit Information Type of service Follow-up Visit Follow-up Visit (Physician/FUNDING ANALYST (Physician/FUNDING ANALYST ) ) Arrival Mode Wheelchair Wheelchair Transfer Assistance Shira Lift Shira Lift Transfer Assist (Other) 3 Patient Identification Verified (Name & Yes Yes ) Patient Requires Transmission-Based No No Precautions Height and Weight Height 5 ft 8 in Weight 146.057 kg Weight in Pounds 322.0 lbs Body Mass Index (BMI) 48.9 48.9 BMI Classification Obese Obese Vital Signs Temperature (97.8 F-99.1 F) 97.6 F L 97 F L Temperature Source Temporal Temporal Pulse Rate (60-100) 74 65 Pulse Location Monitor Monitor Respiratory Rate (12-18) 16 16 Respiratory rate source Observation Observation Oxygen Delivery Method Room Air Room Air Blood Pressure (90/60-120/80) 135/60 H 130/85 H Blood Pressure Mean (mm Hg) 85 100 Source Monitor Monitor Position Sitting Sitting Blood Pressure Location Left Arm Right Arm History Since Last Visit- (Skip if this is Patient's initial visit) Have you changed medications since your No No last visit? Any new allergies or adverse reactions No No Had a fall/change in ADL's that may No No increase risk of falls Signs or symptoms of abuse and/or No No neglect since last visit Have you been in the hospital since your No No last visit? Has dressing in place as prescribed Yes Yes Has compression in place as prescribed N/A Has offloadiing in place as prescribed Yes Yes Experienced any changes in pain level or No No management Left Footwear Diabetic Shoe Diabetic Shoe Right Footwear Total Contact Total Contact Cast Cast Pain Scale: 0-10 Numeric Is Patient Pain Free? Yes Yes Yes 01/02/25 01/09/25 01/16/25 08:59 10:19 10:26 - Today's Visit Information Type of service Follow-up Visit Follow-up Visit Follow-up Visit (Physician/FUNDING ANALYST (Physician/FUNDING ANALYST (Physician/FUNDING ANALYST ) ) ) Arrival Mode Wheelchair Wheelchair Wheelchair Transfer Assistance Shira Lift Shira Lift Shira Lift Transfer Assist (Other) Patient Identification Verified (Name & Yes Yes Yes ) Patient Requires Transmission-Based Precautions Height and Weight Height Weight Weight in Pounds Body Mass Index (BMI) 48.9 48.9 48.9 BMI Classification Obese Obese Obese Vital Signs Temperature (97.8 F-99.1 F) 96.0 F L 97.9 F 97.1 F L Temperature Source Temporal Temporal Temporal Pulse Rate (60-100) 98 80 73 Pulse Location Monitor Monitor Monitor Respiratory Rate (12-18) 18 18 18 Respiratory rate source Monitor Observation Observation Oxygen Delivery Method Room Air Room Air Room Air Blood Pressure (90/60-120/80) 157/98 H 120/70 108/55 L Blood Pressure Mean (mm Hg) 117 86 72 Source Monitor Monitor Monitor Position Sitting Sitting Sitting Blood Pressure Location Left Arm Left Arm Right Arm History Since Last Visit- (Skip if this is Patient's initial visit) Have you changed medications since your No No No last visit? Any new allergies or adverse reactions No No No Had a fall/change in ADL's that may No No No increase risk of falls Signs or symptoms of abuse and/or No No No neglect since last visit Have you been in the hospital since your No No No last visit? Has dressing in place as prescribed Yes Yes Yes Has compression in place as prescribed Yes N/A Yes Has offloadiing in place as prescribed Yes Yes Yes Experienced any changes in pain level or No No No management Left Footwear Regular Shoe Regular Shoe Total Contact Cast Right Footwear Total Contact Total Contact Regular Shoe Cast Cast Pain Scale: 0-10 Numeric Is Patient Pain Free? Yes Yes Yes - Nurse 1 - General Ulcer Measurement Start: 12/18/24 09:27 Freq: Status: Active Protocol: Activity Type Activity Date Activity User E-sign Co-sign Detail Recorded Client Recorded Date Recorded By Document 12/18/24 09:27 [facility] [id number] 12/18/24 09:35 [facility] Document 12/25/24 09:42 [facility] [id number] 12/25/24 09:54 [facility] Document 01/02/25 08:59 KW [id number] 01/02/25 09:05 KW Document 01/09/25 10:19 KW [id number] 01/09/25 10:29 KW Document 01/16/25 10:26 KW [id number] 01/16/25 10:39 KW 12/18/24 12/25/24 01/02/25 09:27 09:42 08:59 Wound Center Nurse 1 #6 LT HEEL -Current Size (cm) - Length -Current Size (cm) - Width -Current Size (cm) - Depth -Total Square Cm -Date of Last Picture (Recall this field) -Exudate Amt -Exudate Type -Wound Margin -Granulation Amt -Granulation Quality -Necrosis Amt -Necrotic Tissue Type -Texture (Lesvia-wound Skin Appearance) -Moisture (Lesvia-wound Skin Appearance) -Color (Lesvia-wound Skin Appearance) -Temperature (Lesvia-wound Skin Appearance) -Tenderness on Palpation (Lesvia-wound Skin Appearance) -Ulcer Cleansing -Foul Odor after Cleansing -Anesthetic Used 5-left 2nd toe -Current Size (cm) - Length -Current Size (cm) - Width -Current Size (cm) - Depth -Total Square Cm -Date of Last Picture (Recall this field) -Exudate Amt -Exudate Type -Wound Margin -Granulation Amt -Granulation Quality -Necrosis Amt -Necrotic Tissue Type -Texture (Lesvia-wound Skin Appearance) -Moisture (Lesvia-wound Skin Appearance) -Color (Lesvia-wound Skin Appearance) -Temperature (Lesvia-wound Skin Appearance) -Tenderness on Palpation (Lesvia-wound Skin Appearance) -Ulcer Cleansing -Foul Odor after Cleansing -Anesthetic Used 4.R heel medial -Combined with other wound No No -Current Size (cm) - Length 1.6 0.9 1 -Current Size (cm) - Width 2.5 2.3 1.7 -Current Size (cm) - Depth 0.1 0.2 0.2 -Total Square Cm 4.00 2.07 1.7 -Date of Last Picture (Recall this 12/18/24 12/25/24 01/02/25 field) -Photo Taken Yes Yes -Epithelialization Medium 34-66% -Tunneling No -Undermining/Tunneling No -Exudate Amt Medium Medium Medium -Exudate Type Serosanguineous Serosanguineous Serosanguineous -Wound Margin Flat & Intact Thickened Distinct, Outline Attached -Granulation Amt Medium (34-66%) Large (67-100%) Large (67-100%) -Granulation Quality Red Red [place],Red -Slough/Fibrin Yes -Necrosis Amt Medium (34-66%) Small (1-33%) -Necrotic Tissue Type Adherent Slough Adherent Slough -Texture (Lesvia-wound Skin Appearance) Assessed, Assessed Assessed Scarring -Moisture (Lesvia-wound Skin Appearance) Assessed,Dry/ Assessed Assessed,Dry/ Scaly Scaly -Color (Lesvia-wound Skin Appearance) Assessed Assessed Assessed -Temperature (Lesvia-wound Skin No Abnormality No Abnormality No Abnormality Appearance) (Pt Warm) (Pt Warm) (Pt Warm) -Tenderness on Palpation (Lesvia-wound No No No Skin Appearance) -Ulcer Cleansing Soap and Water Soap and Water Soap and Water -Foul Odor after Cleansing No No No -Anesthetic Used 5% Lidocaine 5% Lidocaine Cetacaine Gel Gel Right Calf (cm) Right Ankle (cm) Left Calf (cm) Left Ankle (cm) 01/09/25 01/16/25 10:19 10:26 Wound Center Nurse 1 #6 LT HEEL -Current Size (cm) - Length 0.1 0.3 -Current Size (cm) - Width 0.1 0.3 -Current Size (cm) - Depth 0.1 0.1 -Total Square Cm 0.01 0.09 -Date of Last Picture (Recall this 01/09/25 01/16/25 field) -Exudate Amt Medium Small -Exudate Type Serosanguineous Serosanguineous -Wound Margin Thickened Distinct, Outline Attached -Granulation Amt Small (1-33%) None Present (0 %) -Granulation Quality [place] -Necrosis Amt Large (67-100%) Large (67-100%) -Necrotic Tissue Type Adherent Slough Eschar -Texture (Lesvia-wound Skin Appearance) Assessed Assessed -Moisture (Lesvia-wound Skin Appearance) Assessed Assessed -Color (Lesvia-wound Skin Appearance) Assessed, Assessed Erythema -Temperature (Lesvia-wound Skin No Abnormality No Abnormality Appearance) (Pt Warm) (Pt Warm) -Tenderness on Palpation (Lesvia-wound No No Skin Appearance) -Ulcer Cleansing Rinsed/ Soap and Water Irrigated with Saline -Foul Odor after Cleansing No No -Anesthetic Used 5% Lidocaine 5% Lidocaine Gel Gel 5-left 2nd toe -Current Size (cm) - Length 0.1 0.2 -Current Size (cm) - Width 0.1 0.2 -Current Size (cm) - Depth 0.1 0.1 -Total Square Cm 0.01 0.04 -Date of Last Picture (Recall this 01/09/25 01/16/25 field) -Exudate Amt Medium Small -Exudate Type Serosanguineous Serosanguineous -Wound Margin Distinct, Distinct, Outline Outline Attached Attached -Granulation Amt Large (67-100%) Small (1-33%) -Granulation Quality [place] Red -Necrosis Amt Small (1-33%) Medium (34-66%) -Necrotic Tissue Type Adherent Slough Eschar -Texture (Lesvia-wound Skin Appearance) Assessed Assessed -Moisture (Lesvia-wound Skin Appearance) Maceration Assessed -Color (Lesvia-wound Skin Appearance) Assessed, Assessed Erythema -Temperature (Lesvia-wound Skin No Abnormality No Abnormality Appearance) (Pt Warm) (Pt Warm) -Tenderness on Palpation (Lesvia-wound No No Skin Appearance) -Ulcer Cleansing Rinsed/ Soap and Water Irrigated with Saline -Foul Odor after Cleansing No -Anesthetic Used 5% Lidocaine 5% Lidocaine Gel Gel 4.R heel medial -Combined with other wound -Current Size (cm) - Length 0.1 1.5 -Current Size (cm) - Width 0.1 2.5 -Current Size (cm) - Depth 0.1 0.1 -Total Square Cm 0.01 3.75 -Date of Last Picture (Recall this 01/09/25 01/16/25 field) -Photo Taken -Epithelialization -Tunneling -Undermining/Tunneling -Exudate Amt Medium Small -Exudate Type Serosanguineous Serosanguineous -Wound Margin Thickened Distinct, Outline Attached -Granulation Amt Medium (34-66%) None Present (0 %) -Granulation Quality [place] -Slough/Fibrin -Necrosis Amt Medium (34-66%) Large (67-100%) -Necrotic Tissue Type Adherent Slough Eschar -Texture (Lesvia-wound Skin Appearance) Assessed,Callus Assessed -Moisture (Lesvia-wound Skin Appearance) Assessed Assessed -Color (Lesvia-wound Skin Appearance) Assessed Assessed -Temperature (Lesvia-wound Skin No Abnormality No Abnormality Appearance) (Pt Warm) (Pt Warm) -Tenderness on Palpation (Lesvia-wound No No Skin Appearance) -Ulcer Cleansing Soap and Water Soap and Water -Foul Odor after Cleansing No No -Anesthetic Used 5% Lidocaine 5% Lidocaine Gel Gel Right Calf (cm) 32.0 Right Ankle (cm) 26.5 Left Calf (cm) 39.5 Left Ankle (cm) 25 WC - Nurse 2 - General Ulcer CM Notes Start: 12/18/24 09:27 Freq: Status: Active Protocol: Activity Type Activity Date Activity User E-sign Co-sign Detail Recorded Client Recorded Date Recorded By Document 12/18/24 09:49 DS [id number] 12/18/24 10:00 DS Edit Result 12/18/24 09:49 DS (1) [id number] 12/18/24 10:07 DS Document 12/25/24 10:09 DS [id number] 12/25/24 10:19 DS Edit Result 12/25/24 10:09 DS (2) [id number] 12/25/24 10:49 DS Edit Result 12/25/24 10:09 DS (3) [id number] 12/25/24 10:53 DS Document 01/02/25 09:06 JF [id number] 01/02/25 09:16 JF Document 01/09/25 10:38 JF [id number] 01/09/25 10:44 JF Document 01/16/25 10:47 JF [id number] 01/16/25 10:53 JF (1) 4.R heel medial - Wound Comment(s) => sutures removed (2) 4.R heel medial - Type of Bioengineered Tissue => Epifix - Expiration Date => 06/20/29 - Product Lot Number => [id number] - Percent Used => 100 - Lot number of Saline Used => [id number] - Apply Skin Sub - 1st 25 sq cm - Feet => 1 - Epifix Application 1-4 (per sq cm) => 4 - Wound Comment(s) => pressure dressing used for 10mins (3) 4.R heel medial - Offloading => Yes - Type of Offloading => Total Contact Cast => (TCC) - Right ($) - Total Non-Weight Bearing to => Right Lower => Extremity - Assistive Device(s) => Wheelchair - Pressure Reduction => Wheelchair cushion 12/18/24 12/25/24 01/02/25 09:49 10:09 09:06 Wound Center Nurse 2 #6 LT HEEL -Time -Correct Patient -Correct Side, Site, Position -Correct Procedure -Procedure Performed -Type of Procedure -Clinical Debridement -Tissue Removed -Post Debridement (cm) - Length -Post Debridement (cm) - Width -Post Debridement (cm) - Depth -Total Square (Post) (cm) -Area of Debridement (cm) - Length -Area of Debridement (cm) - Width -Total Square (Area) (cm) -Tunneling -Undermining/Tunneling -Circular Undermining -Wound/Ulcer Outcome -Ulcer Cleansing -Foul Odor after Cleansing -Bioengineered Tissue -Bleeding Controlled with -Treatment Response -Offloading -Debridement - Subq, 1st 20sq cm 5-left 2nd toe -Time 09:15 -Correct Patient Yes -Correct Side, Site, Position Yes -Correct Procedure Yes -Procedure Performed Yes -Type of Procedure Debridement -Clinical Debridement Muscle / Fascia -Tissue Removed Muscle -Post Debridement (cm) - Length 0.7 -Post Debridement (cm) - Width 0.7 -Post Debridement (cm) - Depth 0.2 -Total Square (Post) (cm) 0.49 -Area of Debridement (cm) - Length 0.7 -Area of Debridement (cm) - Width 0.7 -Total Square (Area) (cm) 0.49 -Tunneling No -Undermining/Tunneling No -Circular Undermining No -Wound/Ulcer Outcome Not Healed -Ulcer Cleansing Rinsed/ Irrigated with Saline -Foul Odor after Cleansing No -Bioengineered Tissue No -Bleeding Controlled with Pressure -Treatment Response Procedure Tolerated Well -Offloading No -Debridement - Subq, 1st 20sq cm -Debridement - Muscle / Fascia, 1st Yes 20sq cm 4.R heel medial -Time 09:50 10:09 09:06 -Correct Patient Yes Yes Yes -Correct Side, Site, Position Yes Yes Yes -Correct Procedure Yes Yes Yes -Procedure Performed Yes Yes Yes -Type of Procedure Debridement Debridement Debridement -Clinical Debridement Subcutaneous Subcutaneous Subcutaneous -Tissue Removed Subcutaneous Subcutaneous Subcutaneous -Post Debridement (cm) - Length 1.5 1.5 1 -Post Debridement (cm) - Width 2.7 2.1 1.8 -Post Debridement (cm) - Depth 0.2 0.2 0.2 -Total Square (Post) (cm) 4.05 3.15 1.8 -Area of Debridement (cm) - Length 1.5 1.5 1.0 -Area of Debridement (cm) - Width 2.7 2.1 1.8 -Total Square (Area) (cm) 4.05 3.15 1.80 -Tunneling No No No -Undermining/Tunneling No No No -Circular Undermining No No No -Wound/Ulcer Outcome Not Healed Not Healed Not Healed -Ulcer Cleansing Rinsed/ Rinsed/ Irrigated with Irrigated with Saline Saline -Foul Odor after Cleansing No No No -Bioengineered Tissue No No Yes -Type of Bioengineered Tissue Epicord Epifix Epifix 18mm Disc -Expiration Date 04/20/29 06/20/29 08/18/29 -Product Lot Number [id number] -Percent Used 100 100 100 -Lot number of Saline Used [id number] -Bleeding Controlled with Pressure Pressure,Silver Pressure Nitrate ($) -Treatment Response Procedure Procedure Procedure Tolerated Well Tolerated Well Tolerated Well -Offloading Yes Yes Yes -Type of Offloading Total Contact Total Contact Total Contact Cast (TCC) - Cast (TCC) - Cast (TCC) - Right ($) Right ($) Right ($) -Total Non-Weight Bearing to Right Lower Extremity -Assistive Device(s) Wheelchair -Pressure Reduction Wheelchair cushion -Debridement - Subq, 1st 20sq cm No No No -Apply Skin Sub - 1st 25 sq cm - Feet 1 1 1 -Epicord Application 1-4 (per sq cm) 6 -Epifix Application 1-4 (per sq cm) 4 -Epifix 18mm Disc Application 1-4 3 -Wound Comment(s) sutures removed pressure dressing used for 10mins Pain Scale: 0-10 Numeric Is Patient Pain Free? Yes Yes Yes 01/09/25 01/16/25 10:38 10:47 Wound Center Nurse 2 #6 LT HEEL -Time 10:38 -Correct Patient Yes Yes -Correct Side, Site, Position Yes No -Correct Procedure Yes No -Procedure Performed Yes No -Type of Procedure Debridement -Clinical Debridement Subcutaneous -Tissue Removed Subcutaneous -Post Debridement (cm) - Length 0.4 0 -Post Debridement (cm) - Width 0.5 0 -Post Debridement (cm) - Depth 0.1 0 -Total Square (Post) (cm) 0.20 0 -Area of Debridement (cm) - Length 0.4 0 -Area of Debridement (cm) - Width 0.5 0 -Total Square (Area) (cm) 0.20 0 -Tunneling No -Undermining/Tunneling No -Circular Undermining No -Wound/Ulcer Outcome Not Healed Healed- Epithelialized -Ulcer Cleansing Rinsed/ Irrigated with Saline -Foul Odor after Cleansing No -Bioengineered Tissue No -Bleeding Controlled with Pressure -Treatment Response Procedure Tolerated Well -Offloading No -Debridement - Subq, 1st 20sq cm Yes 5-left 2nd toe -Time 10:39 -Correct Patient Yes Yes -Correct Side, Site, Position Yes No -Correct Procedure Yes No -Procedure Performed Yes No -Type of Procedure Debridement -Clinical Debridement Subcutaneous -Tissue Removed Subcutaneous -Post Debridement (cm) - Length 0.4 0 -Post Debridement (cm) - Width 0.6 0 -Post Debridement (cm) - Depth 0.1 0 -Total Square (Post) (cm) 0.24 0 -Area of Debridement (cm) - Length 0.4 0 -Area of Debridement (cm) - Width 0.6 0 -Total Square (Area) (cm) 0.24 0 -Tunneling No -Undermining/Tunneling No -Circular Undermining No -Wound/Ulcer Outcome Not Healed Healed- Epithelialized -Ulcer Cleansing Rinsed/ Irrigated with Saline -Foul Odor after Cleansing No -Bioengineered Tissue No -Bleeding Controlled with Pressure -Treatment Response Procedure Tolerated Well -Offloading No -Debridement - Subq, 1st 20sq cm No -Debridement - Muscle / Fascia, 1st 20sq cm 4.R heel medial -Time 10:43 10:47 -Correct Patient Yes Yes -Correct Side, Site, Position Yes Yes -Correct Procedure Yes Yes -Procedure Performed Yes Yes -Type of Procedure Debridement Debridement -Clinical Debridement Subcutaneous Subcutaneous -Tissue Removed Subcutaneous Subcutaneous -Post Debridement (cm) - Length 1.2 0.6 -Post Debridement (cm) - Width 1.3 1.1 -Post Debridement (cm) - Depth 0.1 0.1 -Total Square (Post) (cm) 1.56 0.66 -Area of Debridement (cm) - Length 1.2 0.6 -Area of Debridement (cm) - Width 1.3 1.1 -Total Square (Area) (cm) 1.56 0.66 -Tunneling No No -Undermining/Tunneling No No -Circular Undermining No No -Wound/Ulcer Outcome Not Healed Not Healed -Ulcer Cleansing Rinsed/ Rinsed/ Irrigated with Irrigated with Saline Saline -Foul Odor after Cleansing No No -Bioengineered Tissue Yes Yes -Type of Bioengineered Tissue Epifix 18mm Epifix 18mm Disc Disc -Expiration Date 08/18/29 09/18/29 -Product Lot Number [id number] -Percent Used 100 100 -Lot number of Saline Used [id number] -Bleeding Controlled with Pressure Pressure -Treatment Response Procedure Procedure Tolerated Well Tolerated Well -Offloading Yes Yes -Type of Offloading Total Contact Total Contact Cast (TCC) - Cast (TCC) - Right ($) Right ($) -Total Non-Weight Bearing to -Assistive Device(s) -Pressure Reduction -Debridement - Subq, 1st 20sq cm No No -Apply Skin Sub - 1st 25 sq cm - Feet 1 1 -Epicord Application 1-4 (per sq cm) -Epifix Application 1-4 (per sq cm) -Epifix 18mm Disc Application 1-4 3 3 -Wound Comment(s) Pain Scale: 0-10 Numeric Is Patient Pain Free? Yes Yes - Nurse 3 - General Ulcer D/C NN Start: 12/18/24 09:27 Freq: Status: Active Protocol: Activity Type Activity Date Activity User E-sign Co-sign Detail Recorded Client Recorded Date Recorded By Document 12/18/24 10:14 [id number] 12/18/24 10:16 JF Document 12/25/24 11:17 BMF [id number] 12/25/24 11:18 BM Document 01/02/25 09:23 KW [id number] 01/02/25 09:24 KW Document 01/09/25 11:12 KW [id number] 01/09/25 11:13 KW Document 01/16/25 11:02 KW [id number] 01/16/25 11:02 KW 12/18/24 12/25/24 01/02/25 10:14 11:17 09:23 Wound Care Center Nurse 3 #6 LT HEEL -Other Dressing -Primary Dressing Covered/Secured with 5-left 2nd toe -Ulcer Cleansing Rinsed/ Irrigated with Saline -Other Dressing paint with betadine -Primary Dressing Covered/Secured with Dry Gauze, Secured with Tape 4.R heel medial -Primary Dressing Applied AMD Dressing Optilok 5x5 1/2 AMD Dressing 4x4 4x4 -Other Dressing epicord, tcc 3 AMD IS 4X8 -Primary Dressing Covered/Secured with Dry Gauze, Secured with Secured with Tape Tape -Other Covering betadine to sutured sites on legs. -AMD Dressing 4x4 2 1 -Optilok 5x5 1/2 1 -Wound Comment(s) TCC APPLIED BY CM AND DR Treatment Response Procedure Tolerated Well Pain Scale: 0-10 Numeric Is Patient Pain Free? Yes Yes Yes WC - Visit Discharge Discharge Condition Stable Stable Stable Ambulatory Status Wheelchair Wheelchair Wheelchair Transportation [facility] Medication Reconcilliation completed & Yes No provided to patient/care provider Clinical Summary of Care Provided Yes Yes Notes: shira lift x2. Facility Type [facility] Care Facility 01/09/25 01/16/25 11:12 11:02 Wound Care Center Nurse 3 #6 LT HEEL -Other Dressing BETADINE PAINTED -Primary Dressing Covered/Secured with Dry Gauze & Roll Gauze, Secured with Tape 5-left 2nd toe -Ulcer Cleansing -Other Dressing BETADINE PAINTED -Primary Dressing Covered/Secured with Dry Gauze, Secured with Tape 4.R heel medial -Primary Dressing Applied AMD Dressing AMD Dressing 4x4 4x4 -Other Dressing -Primary Dressing Covered/Secured with Secured with Dry Gauze & Tape Roll Gauze, Secured with Tape -Other Covering -AMD Dressing 4x4 1 1 -Optilok 5x5 1/2 -Wound Comment(s) Treatment Response Pain Scale: 0-10 Numeric Is Patient Pain Free? Yes Yes WC - Visit Discharge Discharge Condition Stable Stable Ambulatory Status Wheelchair Wheelchair Transportation Medication Reconcilliation completed & No No provided to patient/care provider Clinical Summary of Care Provided Yes Yes Notes: TCC REAPPLIED TCC APPLIED ON RT WITH CHARANICETO BOOT Facility Type Assessment/Plan Assessment/Plan (1) Non-pressure chronic ulcer of other part of right foot with fat layer exposed: CODE(S): L97.512 - Non-pressure chronic ulcer of other part of right foot with fat layer exposed PLAN: Patient was examined and evaluated. All findings were discussed with the patient. All questions were answered to the patient's satisfaction. Excisional debridement down to including subcutaneous tissue with a number 3 mm dermal curette to the right heel full-thickness wound done without incident. Predebridement measurement was sanguinous crust postdebridement measurement was 0.6 x 1.1 x 0.1 cm. EpiFix 18 mm was applied to the right heel full-thickness ulceration with 100% use. The graft site was free and clear of any infection. The wound/skin graft substitute was dressed with nonadherent bandage secured in place with Steri- Strips followed by bolster dressing as well as a total contact cast at 90 degrees. Betadine paint was applied to the left heel and left second digit covered with sterile Band-Aid. Patient will continue daily dressing changes to the left foot. Patient's weightbearing status can be as tolerated with boot donned to the total contact cast and full weightbearing with regular shoe to the left foot. Patient will continue strict pressure control. Patient will continue antibiotics as prescribed until gone. Follow-up at the wound care center with Dr. Cerda in 1 week (2) Non-pressure chronic ulcer of other part of left foot with fat layer exposed: CODE(S): L97.522 - Non-pressure chronic ulcer of other part of left foot with fat layer exposed
--- NOTE | 2025-01-17 10:03 | WC ---
PHOTO-L 2ND TOE 01/16/25
--- NOTE | 2025-01-17 10:04 | WC ---
PHOTO-LEFT HEEL 01/16/25
--- NOTE | 2025-01-17 10:05 | WC ---
PHOTO-RIGHT HEEL 01/16/25
== END 2025-01-17 23:59 | disposition home or self-care (01) ==
LOC: WC 10:30
PROVIDERS: PCP Family Medicine; Referring Provider Podiatrist; Visit Provider Podiatrist Foot & Ankle Surgery
DX: E11.621 Type 2 diabetes mellitus with foot ulcer (principal); L97.523 Non-pressure chronic ulcer of other part of left foot with necrosis of muscle; L97.512 Non-pressure chronic ulcer of other part of right foot with fat layer exposed; L97.412 Non-pressure chronic ulcer of right heel and midfoot with fat layer exposed; I48.91 Unspecified atrial fibrillation; E66.2 Morbid (severe) obesity with alveolar hypoventilation; Z68.42 Body mass index [BMI] 45.0-49.9, adult; E66.01 Morbid (severe) obesity due to excess calories; E11.59 Type 2 diabetes mellitus with other circulatory complications; E11.42 Type 2 diabetes mellitus with diabetic polyneuropathy; Z79.4 Long term (current) use of insulin; Z87.891 Personal history of nicotine dependence; Z79.899 Other long term (current) drug therapy; E78.5 Hyperlipidemia, unspecified; Z83.3 Family history of diabetes mellitus; M19.90 Unspecified osteoarthritis, unspecified site; R60.0 Localized edema; I87.2 Venous insufficiency (chronic) (peripheral); Z79.01 Long term (current) use of anticoagulants; Z79.84 Long term (current) use of oral hypoglycemic drugs; I10 Essential (primary) hypertension; R06.00 Dyspnea, unspecified; G47.33 Obstructive sleep apnea (adult) (pediatric); Z89.429 Acquired absence of other toe(s), unspecified side; Z99.89 Dependence on other enabling machines and devices; L03.032 Cellulitis of left toe
CPT/HCPCS: 11042; 11043; 15275; 29445; 87070; 87075; 87077; 87186; 87205; Q4186; Q4187

== ENCOUNTER 2025-02-13 10:15 | Outpatient (RCR) | payer MEDICARE, OTHER, SELFPAY ==
[2025-01-23 10:30] VITALS: BP 122/65; PULSE 65; RESP 16; TEMP 35.8
--- NOTE | 2025-01-23 10:59 | PN.PCM_ITS ---
History of Present Illness Date of Service: 01/23/25 Chief Complaint: Diabetic right heel ulceration History of Wound: This is a 69-year-old obese, diabetic male patient whose care has been assumed from Dr. Ramon Garcia, who is departing from our staff. The patient has a chronic ulceration on his right heel, associated with poorly controlled type 2 diabetes mellitus and diabetic polyneuropathy. The patient suffers from multiple other pre-existing medical problems, which are documented herein. The patient's most recent management has been by means of serial debridements, with an EpiFix allograft having been applied at the patient's prior visit on December 11, 2024. Offloading measures and total contact casting have also been a recent cornerstone of the patient's management. 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 Progress of Wound: Healed full-thickness wounds to the left foot. Stable slow healing full- thickness wound right heel with amniotic skin graft substitute and total contact cast. Subjective Subjective Patient is a 69-year-old diabetic male presenting to wound care center today for follow-up evaluation of right heel full-thickness wound with amniotic skin graft substitute with total contact cast application. Patient states the left foot wounds are now healed. His blood sugars well-controlled. He has finished all his antibiotics. He is starting to work with physical therapy but at a snails pace. He is able to transfer without any concerns. He denies any new onset of trauma. Denies new open lesions or or abrasions. Denies constitutional s ymptoms. No other pedal complaints at this time. Objective Data Objective Data Vital Signs: Vital Signs Temp Pulse Resp BP O2 Del Method 96.5 F L 65 16 122/65 H Room Air 01/23/25 10:30 01/23/25 10:30 01/23/25 10:30 01/23/25 10:30 01/23/25 10:30 Oxygen Delivery Method Room Air Lab / Micro Data Micro: Microbiology 01/02/25 14:14 Ulcer, Decubitus - Toe Gram Stain - Final 01/02/25 14:14 Ulcer, Decubitus - Toe Wound Culture - Final Meth. resistant Staph. aureus 01/02/25 14:14 Ulcer, Decubitus - Toe Anaerobic Culture - Final No anaerobic bacteria isolated. Physical Exam Narrative Vascular: DP and PT pulse are palpable. CFT is brisk. Skin temperature is warm to warm from proximal ankles to distal digit bilateral. Nonpitting edema with hemosiderin deposit appreciated bilateral extremity. No erythema bilateral. Neurological:. Light touch is intact. Protective station is diminished. Patient does not respond to painful stimuli. Dermatological: Full-thickness wound to the right heel measuring 0.5 x 1.2 x 0.1 cm. Wound base is granular with no sign of infection. Excisional debridement down to including subcutaneous tissue with a number 3 mm dermal curette to the right heel full-thickness wound done without incident. Predebridement measurement was sanguinous crust postdebridement measurement was 0.5 x 1.2 x 0.1 cm. EpiFix 18 mm was applied to the right heel full-thickness ulceration with 100% use. #9 application. The graft site was free and clear of any infection. The wound/skin graft substitute was dressed with nonadherent bandage secured in place with Steri-Strips followed by bolster dressing as well as a total contact cast at 90 degrees. Musculoskeletal: No pain to palpation to full-thickness wound bilateral. No pain with calf pressure. Debridement Note Debridement Note Debridement Free Text: Excisional debridement down to including subcutaneous tissue with a number 3 mm dermal curette to the right heel full-thickness wound done without incident. Predebridement measurement was sanguinous crust postdebridement measurement was 0.5 x 1.2 x 0.1 cm. EpiFix 18 mm was applied to the right heel full-thickness ulceration with 100% use. #9 application. The graft site was free and clear of any infection. The wound/skin graft substitute was dressed with nonadherent bandage secured in place with Steri-Strips followed by bolster dressing as well as a total contact cast at 90 degrees. Post-Debridement Measurements and Additional Note: Post-Debridement Measurements/Treatment - Nurse 1 - General Ulcer Assessment Start: 01/23/25 10:30 Freq: Status: Active Protocol: MARGY Activity Type Activity Date Activity User E-sign Co-sign Detail Recorded Client Recorded Date Recorded By Document 01/23/25 10:30 [id number] 01/23/25 10:44 GM 01/23/25 10:30 - Today's Visit Information Type of service Follow-up Visit (Physician/SOURCER ) Arrival Mode Walker, Wheelchair Transfer Assistance Manual Patient Identification Verified (Name & Yes ) Vital Signs Temperature (97.8 F-99.1 F) 96.5 F L Temperature Source Temporal Pulse Rate (60-100) 65 Pulse Location Monitor Respiratory Rate (12-18) 16 Respiratory rate source Observation Oxygen Delivery Method Room Air Blood Pressure (90/60-120/80) 122/65 H Blood Pressure Mean (mm Hg) 84 Source Monitor Position Sitting Blood Pressure Location Right Arm History Since Last Visit- (Skip if this is Patient's initial visit) Have you changed medications since your No last visit? Any new allergies or adverse reactions No Had a fall/change in ADL's that may No increase risk of falls Signs or symptoms of abuse and/or No neglect since last visit Have you been in the hospital since your No last visit? Has dressing in place as prescribed Yes Has compression in place as prescribed N/A Has offloadiing in place as prescribed Yes Experienced any changes in pain level or No management Right Footwear Total Contact Cast Pain Scale: 0-10 Numeric Is Patient Pain Free? Yes WC - Nurse 1 - General Ulcer Measurement Start: 01/23/25 10:30 Freq: Status: Active Protocol: Activity Type Activity Date Activity User E-sign Co-sign Detail Recorded Client Recorded Date Recorded By Document 01/23/25 10:30 [id number] 01/23/25 10:44 GM 01/23/25 10:30 Wound Center Nurse 1 #6 LT HEEL -Combined with other wound No -Current Size (cm) - Length 1.0 -Current Size (cm) - Width 0.5 -Current Size (cm) - Depth 0.1 -Total Square Cm 0.50 -Date of Last Picture (Recall this 01/23/25 field) -Photo Taken Yes -Epithelialization Small 1-33% -Tunneling No -Undermining/Tunneling No -Circular Undermining No -Exudate Amt None Present -Wound Margin Distinct, Outline Attached -Granulation Amt None Present (0 %) -Slough/Fibrin Yes -Necrosis Amt Small (1-33%) -Necrotic Tissue Type Eschar -Texture (Lesvia-wound Skin Appearance) Assessed -Moisture (Lesvia-wound Skin Appearance) Assessed -Color (Lesvia-wound Skin Appearance) Assessed -Temperature (Lesvia-wound Skin No Abnormality Appearance) (Pt Warm) -Ulcer Cleansing Soap and Water -Foul Odor after Cleansing No WC - Nurse 2 - General Ulcer CM Notes Start: 01/23/25 10:30 Freq: Status: Active Protocol: Activity Type Activity Date Activity User E-sign Co-sign Detail Recorded Client Recorded Date Recorded By Document 01/23/25 10:50 [email or web address] [id number] 01/23/25 10:56 ÁNGEL 01/23/25 10:50 Wound Center Nurse 2 -Time 10:51 -Correct Patient Yes -Correct Side, Site, Position No -Correct Procedure No -Procedure Performed No -Post Debridement (cm) - Length 0 -Post Debridement (cm) - Width 0 -Post Debridement (cm) - Depth 0 -Total Square (Post) (cm) 0 -Area of Debridement (cm) - Length 0 -Area of Debridement (cm) - Width 0 -Total Square (Area) (cm) 0 -Tunneling No -Undermining/Tunneling No -Circular Undermining No -Wound/Ulcer Outcome Healed- Epithelialized -Ulcer Cleansing Rinsed/ Irrigated with Saline -Foul Odor after Cleansing No -Bioengineered Tissue No -Bleeding Controlled with Pressure -Treatment Response Procedure Tolerated Well -Debridement - Subq, 1st 20sq cm No -Apply Skin Sub - 1st 25 sq cm - Feet 1 -Epifix 18mm Disc Application 1-4 3 5-left 2nd toe -Correct Patient Yes -Correct Side, Site, Position No -Correct Procedure No -Procedure Performed No -Wound/Ulcer Outcome Healed- Epithelialized 4.R heel medial -Time 10:55 -Correct Patient Yes -Correct Side, Site, Position Yes -Correct Procedure Yes -Procedure Performed Yes -Type of Procedure Debridement -Clinical Debridement Subcutaneous -Tissue Removed Subcutaneous -Post Debridement (cm) - Length 0.5 -Post Debridement (cm) - Width 1.2 -Post Debridement (cm) - Depth 0.1 -Total Square (Post) (cm) 0.60 -Area of Debridement (cm) - Length 0.5 -Area of Debridement (cm) - Width 1.2 -Total Square (Area) (cm) 0.60 -Tunneling No -Undermining/Tunneling No -Circular Undermining No -Wound/Ulcer Outcome Not Healed -Ulcer Cleansing Rinsed/ Irrigated with Saline -Foul Odor after Cleansing No -Bioengineered Tissue Yes -Type of Bioengineered Tissue Epifix 18mm Disc -Expiration Date 09/18/29 -Product Lot Number [id number] -Percent Used 100 -Lot number of Saline Used [id number] -Bleeding Controlled with NA -Treatment Response Procedure Tolerated Well -Offloading Yes -Type of Offloading Total Contact Cast (TCC) - Right ($) -Assistive Device(s) Wheelchair -Debridement - Subq, 1st 20sq cm No -Apply Skin Sub - 1st 25 sq cm - Feet 1 -Epifix 18mm Disc Application 1-4 3 Pain Scale: 0-10 Numeric Is Patient Pain Free? Yes Assessment/Plan Assessment/Plan (1) Non-pressure chronic ulcer of other part of right foot with fat layer exposed: CODE(S): L97.512 - Non-pressure chronic ulcer of other part of right foot with fat layer exposed PLAN: Patient was examined and evaluated. All findings were discussed with the patient. All questions were answered to the patient's satisfaction. Excisional debridement down to including subcutaneous tissue with a number 3 mm dermal curette to the right heel full-thickness wound done without incident. Predebridement measurement was sanguinous crust postdebridement measurement was 0.5 x 1.2 x 0.1 cm. EpiFix 18 mm was applied to the right heel full-thickness ulceration with 100% use. #9 application. The graft site was free and clear of any infection. The wound/skin graft substitute was dressed with nonadherent bandage secured in place with Steri-Strips followed by bolster dressing as well as a total contact cast at 90 degrees. Patient's weightbearing status can be as tolerated with boot donned to the total contact cast and full weightbearing with regular shoe to the left foot. Patient shows no sign of infection to the bilateral lower extremity. He is okay to participate in physical therapy. Follow-up at the wound care center with Dr. Cerda in 1 week
--- NOTE | 2025-01-24 09:55 | WC ---
PHOTO-LEFT HEEL 01/23/25
--- NOTE | 2025-01-24 09:56 | WC ---
PHOTO-LEFT HEEL 01/23/25
[2025-01-30 10:32] VITALS: BP 109/55; PULSE 62; RESP 16; TEMP 36.2
--- NOTE | 2025-01-30 10:51 | PN.PCM_ITS ---
History of Present Illness Date of Service: 01/30/25 Chief Complaint: Diabetic right heel ulceration History of Wound: This is a 69-year-old obese, diabetic male patient whose care has been assumed from Dr. Ramon Garcia, who is departing from our staff. The patient has a chronic ulceration on his right heel, associated with poorly controlled type 2 diabetes mellitus and diabetic polyneuropathy. The patient suffers from multiple other pre-existing medical problems, which are documented herein. The patient's most recent management has been by means of serial debridements, with an EpiFix allograft having been applied at the patient's prior visit on December 11, 2024. Offloading measures and total contact casting have also been a recent cornerstone of the patient's management. 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 Progress of Wound: Healed full-thickness wounds to the left foot. Stable slow healing full- thickness wound right heel with amniotic skin graft substitute and total contact cast. Subjective Subjective Patient is a 69-year-old diabetic male presenting to the wound care center today follow-up evaluation of full-thickness wound to left heel with amniotic skin graft substitute and total contact cast application. Patient is participating in physical therapy as needed. He is doing well. His blood sugars well- controlled. His left foot is completely healed. He is grateful for his care. He denies any new onset of trauma. Denies constitutional symptoms. No other pedal complaints at this time. Objective Data Objective Data Vital Signs: Vital Signs Temp Pulse Resp BP O2 Del Method 97.2 F L 62 16 109/55 L Room Air 01/30/25 10:32 01/30/25 10:32 01/30/25 10:32 01/30/25 10:32 01/30/25 10:32 Oxygen Delivery Method Room Air Lab / Micro Data Micro: Microbiology 01/02/25 14:14 Ulcer, Decubitus - Toe Gram Stain - Final 01/02/25 14:14 Ulcer, Decubitus - Toe Wound Culture - Final Meth. resistant Staph. aureus 01/02/25 14:14 Ulcer, Decubitus - Toe Anaerobic Culture - Final No anaerobic bacteria isolated. Physical Exam Narrative Vascular: DP and PT pulse are palpable. CFT is brisk. Skin temperature is warm to warm from proximal ankles to distal digit bilateral. Nonpitting edema with hemosiderin deposit appreciated bilateral extremity. No erythema bilateral. Neurological:. Light touch is intact. Protective station is diminished. Patient does not respond to painful stimuli. Dermatological: Full-thickness wound to the right heel measuring 0.6 x 0.8 x 0.2 cm. Wound base is granular with no sign of infection. Excisional debridement down to including subcutaneous tissue with a number 3 mm dermal curette to the right heel full-thickness wound done without incident. Predebridement measurement was sanguinous crust postdebridement measurement was 0.6 x 0.8 x 0.2 cm. EpiFix 18 mm was applied to the right heel full-thickness ulceration with 100% use. #10 application. The graft site was free and clear of any infection. The wound/skin graft substitute was dressed with nonadherent bandage secured in place with Steri-Strips followed by bolster dressing as well as a total contact cast at 90 degrees. Musculoskeletal: No pain to palpation to full-thickness wound bilateral. No pain with calf pressure. Debridement Note Debridement Note Debridement Free Text: Excisional debridement down to including subcutaneous tissue with a number 3 mm dermal curette to the right heel full-thickness wound done without incident. Predebridement measurement was sanguinous crust postdebridement measurement was 0.6 x 0.8 x 0.2 cm. EpiFix 18 mm was applied to the right heel full-thickness ulceration with 100% use. #10 application. The graft site was free and clear of any infection. The wound/skin graft substitute was dressed with nonadherent bandage secured in place with Steri-Strips followed by bolster dressing as well as a total contact cast at 90 degrees. Post-Debridement Measurements and Additional Note: Post-Debridement Measurements/Treatment [facility] Nurse 1 - General Ulcer Assessment Start: 01/23/25 10:30 Freq: Status: Active Protocol: [email or web address] Activity Type Activity Date Activity User E-sign Co-sign Detail Recorded Client Recorded Date Recorded By Document 01/23/25 10:30 [id number] 01/23/25 10:44 Document 01/30/25 10:32 [id number] 01/30/25 10:34 GM 01/23/25 01/30/25 10:30 10:32 - Today's Visit Information Type of service Follow-up Visit Follow-up Visit (Physician/[employer] (Physician/[employer] ) ) Arrival Mode Walker, Wheelchair Wheelchair Transfer Assistance Manual None Patient Identification Verified (Name & Yes Yes ) Vital Signs Temperature (97.8 F-99.1 F) 96.5 F L 97.2 F L Temperature Source Temporal Temporal Pulse Rate (60-100) 65 62 Pulse Location Monitor Monitor Respiratory Rate (12-18) 16 16 Respiratory rate source Observation Monitor Oxygen Delivery Method Room Air Room Air Blood Pressure (90/60-120/80) 122/65 H 109/55 L Blood Pressure Mean (mm Hg) 84 73 Source Monitor Monitor Position Sitting Sitting Blood Pressure Location Right Arm Right Arm History Since Last Visit- (Skip if this is Patient's initial visit) Have you changed medications since your No No last visit? Any new allergies or adverse reactions No No Had a fall/change in ADL's that may No No increase risk of falls Signs or symptoms of abuse and/or No No neglect since last visit Have you been in the hospital since your No last visit? Has dressing in place as prescribed Yes Yes Has compression in place as prescribed N/A Yes Has offloadiing in place as prescribed Yes Yes Experienced any changes in pain level or No No management Right Footwear Total Contact Total Contact Cast Cast Pain Scale: 0-10 Numeric Is Patient Pain Free? Yes Yes - Nurse 1 - General Ulcer Measurement Start: 01/23/25 10:30 Freq: Status: Active Protocol: Activity Type Activity Date Activity User E-sign Co-sign Detail Recorded Client Recorded Date Recorded By Document 01/23/25 10:30 [id number] 01/23/25 10:44 Document 01/30/25 10:32 [id number] 01/30/25 10:34 01/23/25 01/30/25 10:30 10:32 Wound Center Nurse 1 #6 LT HEEL -Combined with other wound No -Current Size (cm) - Length 1.0 -Current Size (cm) - Width 0.5 -Current Size (cm) - Depth 0.1 -Total Square Cm 0.50 -Date of Last Picture (Recall this 01/23/25 field) -Photo Taken Yes -Epithelialization Small 1-33% -Tunneling No -Undermining/Tunneling No -Circular Undermining No -Exudate Amt None Present -Wound Margin Distinct, Outline Attached -Granulation Amt None Present (0 %) -Slough/Fibrin Yes -Necrosis Amt Small (1-33%) -Necrotic Tissue Type Eschar -Texture (Lesvia-wound Skin Appearance) Assessed -Moisture (Lesvia-wound Skin Appearance) Assessed -Color (Lesvia-wound Skin Appearance) Assessed -Temperature (Lesvia-wound Skin No Abnormality Appearance) (Pt Warm) -Ulcer Cleansing Soap and Water -Foul Odor after Cleansing No 4.R heel medial -Current Size (cm) - Length 0.5 -Current Size (cm) - Width 1.0 -Current Size (cm) - Depth 0.1 -Total Square Cm 0.50 -Date of Last Picture (Recall this 01/30/25 field) -Photo Taken Yes -Epithelialization Medium 34-66% -Tunneling No -Undermining/Tunneling No -Circular Undermining No -Exudate Amt Medium -Exudate Type Serosanguineous -Wound Margin Distinct, Outline Attached -Granulation Amt Medium (34-66%) -Granulation Quality Red -Slough/Fibrin No -Necrosis Amt Small (1-33%) -Necrotic Tissue Type Adherent Slough -Texture (Lesvia-wound Skin Appearance) Assessed,Callus -Moisture (Lesvia-wound Skin Appearance) Assessed, Maceration -Color (Lesvia-wound Skin Appearance) Assessed -Temperature (Lesvia-wound Skin No Abnormality Appearance) (Pt Warm) -Tenderness on Palpation (Lesvia-wound No Skin Appearance) -Ulcer Cleansing Soap and Water -Foul Odor after Cleansing No -Anesthetic Used 5% Lidocaine Gel Lower Limb Edema Present No Point of measurement (cm from the medial 40.5 instep) Point of Measurement (cm from the medial 27.0 instep) WC - Nurse 2 - General Ulcer CM Notes Start: 01/23/25 10:30 Freq: Status: Active Protocol: Activity Type Activity Date Activity User E-sign Co-sign Detail Recorded Client Recorded Date Recorded By Document 01/23/25 10:50 ÁNGEL [id number] 01/23/25 10:56 ÁNGEL Document 01/30/25 10:41 ÁNGEL [id number] 01/30/25 10:47 ÁNGEL 01/23/25 01/30/25 10:50 10:41 Wound Center Nurse 2 #6 LT HEEL -Time 10:51 -Correct Patient Yes -Correct Side, Site, Position No -Correct Procedure No -Procedure Performed No -Post Debridement (cm) - Length 0 -Post Debridement (cm) - Width 0 -Post Debridement (cm) - Depth 0 -Total Square (Post) (cm) 0 -Area of Debridement (cm) - Length 0 -Area of Debridement (cm) - Width 0 -Total Square (Area) (cm) 0 -Tunneling No -Undermining/Tunneling No -Circular Undermining No -Wound/Ulcer Outcome Healed- Epithelialized -Ulcer Cleansing Rinsed/ Irrigated with Saline -Foul Odor after Cleansing No -Bioengineered Tissue No -Bleeding Controlled with Pressure -Treatment Response Procedure Tolerated Well -Debridement - Subq, 1st 20sq cm No -Apply Skin Sub - 1st 25 sq cm - Feet 1 -Epifix 18mm Disc Application 1-4 3 5-left 2nd toe -Correct Patient Yes -Correct Side, Site, Position No -Correct Procedure No -Procedure Performed No -Wound/Ulcer Outcome Healed- Epithelialized 4.R heel medial -Time 10:55 10:42 -Correct Patient Yes Yes -Correct Side, Site, Position Yes Yes -Correct Procedure Yes Yes -Procedure Performed Yes Yes -Type of Procedure Debridement Debridement -Clinical Debridement Subcutaneous Subcutaneous -Tissue Removed Subcutaneous Subcutaneous -Post Debridement (cm) - Length 0.5 0.6 -Post Debridement (cm) - Width 1.2 0.8 -Post Debridement (cm) - Depth 0.1 0.2 -Total Square (Post) (cm) 0.60 0.48 -Area of Debridement (cm) - Length 0.5 0.6 -Area of Debridement (cm) - Width 1.2 0.8 -Total Square (Area) (cm) 0.60 0.48 -Tunneling No No -Undermining/Tunneling No No -Circular Undermining No No -Wound/Ulcer Outcome Not Healed Not Healed -Ulcer Cleansing Rinsed/ Rinsed/ Irrigated with Irrigated with Saline Saline -Foul Odor after Cleansing No No -Bioengineered Tissue Yes Yes -Type of Bioengineered Tissue Epifix 18mm Epifix 18mm Disc Disc -Expiration Date 09/18/29 11/18/29 -Product Lot Number [id number] -Percent Used 100 100 -Lot number of Saline Used [id number] -Bleeding Controlled with NA Pressure -Treatment Response Procedure Procedure Tolerated Well Tolerated Well -Offloading Yes Yes -Type of Offloading Total Contact Total Contact Cast (TCC) - Cast (TCC) - Right ($) Right ($) -Assistive Device(s) Wheelchair Wheelchair -Debridement - Subq, 1st 20sq cm No No -Apply Skin Sub - 1st 25 sq cm - Feet 1 1 -Epifix 18mm Disc Application 1-4 3 3 Pain Scale: 0-10 Numeric Is Patient Pain Free? Yes Yes - Nurse 3 - General Ulcer D/C NN Start: 01/23/25 10:30 Freq: Status: Active Protocol: Activity Type Activity Date Activity User E-sign Co-sign Detail Recorded Client Recorded Date Recorded By Document 01/23/25 11:25 LA [id number] 01/23/25 11:27 LA 01/23/25 11:25 Wound Care Center Nurse 3 4.R heel medial -Foul Odor after Cleansing No -Negative Pressure Wound Therapy N/A -Primary Dressing Applied Silicone Border Foam 4x4 -Silicone Border Foam 4x4 1 -Wound Comment(s) TCC applied RLE -Other tcc applied Pain Scale: 0-10 Numeric Is Patient Pain Free? Yes - Visit Discharge Discharge Condition Stable Ambulatory Status Ambulatory Transportation Private Auto Medication Reconcilliation completed & No provided to patient/care provider Clinical Summary of Care Provided Yes Assessment/Plan Assessment/Plan (1) Non-pressure chronic ulcer of other part of right foot with fat layer exposed: CODE(S): L97.512 - Non-pressure chronic ulcer of other part of right foot with fat layer exposed PLAN: Patient was examined and evaluated. All findings were discussed with the patient. All questions were answered to the patient's satisfaction. Excisional debridement down to including subcutaneous tissue with a number 3 mm dermal curette to the right heel full-thickness wound done without incident. Predebridement measurement was sanguinous crust postdebridement measurement was 0.6 x 0.8 x 0.2 cm. EpiFix 18 mm was applied to the right heel full-thickness ulceration with 100% use. #10 application. The graft site was free and clear of any infection. The wound/skin graft substitute was dressed with nonadherent bandage secured in place with Steri-Strips followed by bolster dressing as well as a total contact cast at 90 degrees. Patient's weightbearing status can be as tolerated with boot donned to the total contact cast and full weightbearing with regular shoe to the left foot. Patient can continue physical therapy as needed. Follow-up at the wound care center with Dr. Cerda in 1 week
--- NOTE | 2025-01-31 09:56 | WC ---
PHOTO-RIGHT HEEL 01/30/25
[2025-02-06 10:28] VITALS: BP 112/44; PULSE 46; RESP 18; TEMP 36.1
--- NOTE | 2025-02-06 12:54 | PN.PCM_ITS ---
History of Present Illness Date of Service: 02/06/25 Chief Complaint: Diabetic right heel ulceration History of Wound: This is a 69-year-old obese, diabetic male patient whose care has been assumed from Dr. Ramon Garcia, who is departing from our staff. The patient has a chronic ulceration on his right heel, associated with poorly controlled type 2 diabetes mellitus and diabetic polyneuropathy. The patient suffers from multiple other pre-existing medical problems, which are documented herein. The patient's most recent management has been by means of serial debridements, with an EpiFix allograft having been applied at the patient's prior visit on December 11, 2024. Offloading measures and total contact casting have also been a recent cornerstone of the patient's management. 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 Progress of Wound: Healed full-thickness wounds to the left foot. Stable slow healing full- thickness wound right heel with amniotic skin graft substitute and total contact cast. Subjective Subjective Mr. Zaragoza is a 69-year-old diabetic male presenting to wound care center today for follow-up evaluation of total contact cast to the full-thickness wound with amniotic skin graft substitute to the right lower extremity. Patient has been compliant and left the cast clean dry and intact. He is working with physical therapy. His blood sugars well-controlled. Patient denies any trauma. Denies constitutional symptoms. No other pedal complaints at this time. Objective Data Objective Data Vital Signs: Vital Signs Temp Pulse Resp BP O2 Del Method 96.9 F L 46 L 18 112/44 L Room Air 02/06/25 10:28 02/06/25 10:28 02/06/25 10:28 02/06/25 10:28 02/06/25 10:28 Oxygen Delivery Method Room Air Lab / Micro Data Micro: Microbiology 01/02/25 14:14 Ulcer, Decubitus - Toe Gram Stain - Final 01/02/25 14:14 Ulcer, Decubitus - Toe Wound Culture - Final Meth. resistant Staph. aureus 01/02/25 14:14 Ulcer, Decubitus - Toe Anaerobic Culture - Final No anaerobic bacteria isolated. Physical Exam Narrative Vascular: DP and PT pulse are palpable. CFT is brisk. Skin temperature is warm to warm from proximal ankles to distal digit bilateral. Nonpitting edema with hemosiderin deposit appreciated bilateral extremity. No erythema bilateral. Neurological:. Light touch is intact. Protective station is diminished. Patient does not respond to painful stimuli. Dermatological: Evidence of full-thickness wound with surrounding sanguinous crust measuring 0.1 x 0.1 x 0.1 cm. Musculoskeletal: No pain to palpation to full-thickness wound bilateral. No pain with calf pressure. Debridement Note Debridement Note Post-Debridement Measurements and Additional Note: Post-Debridement Measurements/Treatment - Nurse 1 - General Ulcer Assessment Start: 01/23/25 10:30 Freq: Status: Active Protocol: MARGY Activity Type Activity Date Activity User E-sign Co-sign Detail Recorded Client Recorded Date Recorded By Document 01/23/25 10:30 [id number] 01/23/25 10:44 GM Document 01/30/25 10:32 GM [id number] 01/30/25 10:34 GM Document 02/06/25 10:28 KW [id number] 02/06/25 10:45 KW 01/23/25 01/30/25 02/06/25 10:30 10:32 10:28 - Today's Visit Information Type of service Follow-up Visit Follow-up Visit Follow-up Visit (Physician/SYSTEMS DEVELOPMENT CONSULTANT (Physician/SYSTEMS DEVELOPMENT CONSULTANT (Physician/SYSTEMS DEVELOPMENT CONSULTANT ) ) ) Arrival Mode Walker, Wheelchair Wheelchair Wheelchair Transfer Assistance Manual None Patient Identification Verified (Name & Yes Yes Yes ) Vital Signs Temperature (97.8 F-99.1 F) 96.5 F L 97.2 F L 96.9 F L Temperature Source Temporal Temporal Temporal Pulse Rate (60-100) 65 62 46 L Pulse Location Monitor Monitor Monitor Respiratory Rate (12-18) 16 16 18 Respiratory rate source Observation Monitor Observation Oxygen Delivery Method Room Air Room Air Room Air Blood Pressure (90/60-120/80) 122/65 H 109/55 L 112/44 L Blood Pressure Mean (mm Hg) 84 73 66 Source Monitor Monitor Monitor Position Sitting Sitting Standing Blood Pressure Location Right Arm Right Arm Left Arm History Since Last Visit- (Skip if this is Patient's initial visit) Have you changed medications since your No No No last visit? Any new allergies or adverse reactions No No No Had a fall/change in ADL's that may No No No increase risk of falls Signs or symptoms of abuse and/or No No No neglect since last visit Have you been in the hospital since your No No last visit? Has dressing in place as prescribed Yes Yes Yes Has compression in place as prescribed N/A Yes N/A Has offloadiing in place as prescribed Yes Yes Yes Experienced any changes in pain level or No No No management Left Footwear Total Contact Cast Right Footwear Total Contact Total Contact Regular Shoe Cast Cast Pain Scale: 0-10 Numeric Is Patient Pain Free? Yes Yes Yes WC - Nurse 1 - General Ulcer Measurement Start: 01/23/25 10:30 Freq: Status: Active Protocol: Activity Type Activity Date Activity User E-sign Co-sign Detail Recorded Client Recorded Date Recorded By Document 01/23/25 10:30 GM [id number] 01/23/25 10:44 GM Document 01/30/25 10:32 GM [id number] 01/30/25 10:34 GM Document 02/06/25 10:28 KW [id number] 02/06/25 10:45 KW 01/23/25 01/30/25 02/06/25 10:30 10:32 10:28 Wound Center Nurse 1 #6 LT HEEL -Combined with other wound No -Current Size (cm) - Length 1.0 -Current Size (cm) - Width 0.5 -Current Size (cm) - Depth 0.1 -Total Square Cm 0.50 -Date of Last Picture (Recall this 01/23/25 field) -Photo Taken Yes -Epithelialization Small 1-33% -Tunneling No -Undermining/Tunneling No -Circular Undermining No -Exudate Amt None Present -Wound Margin Distinct, Outline Attached -Granulation Amt None Present (0 %) -Slough/Fibrin Yes -Necrosis Amt Small (1-33%) -Necrotic Tissue Type Eschar -Texture (Lesvia-wound Skin Appearance) Assessed -Moisture (Lesvia-wound Skin Appearance) Assessed -Color (Lesvia-wound Skin Appearance) Assessed -Temperature (Lesvia-wound Skin No Abnormality Appearance) (Pt Warm) -Ulcer Cleansing Soap and Water -Foul Odor after Cleansing No 4.R heel medial -Current Size (cm) - Length 0.5 0.1 -Current Size (cm) - Width 1.0 0.1 -Current Size (cm) - Depth 0.1 0 -Total Square Cm 0.50 0.01 -Date of Last Picture (Recall this 01/30/25 field) -Photo Taken Yes -Epithelialization Medium 34-66% -Tunneling No -Undermining/Tunneling No -Circular Undermining No -Exudate Amt Medium -Exudate Type Serosanguineous -Wound Margin Distinct, Outline Attached -Granulation Amt Medium (34-66%) -Granulation Quality Red -Slough/Fibrin No -Necrosis Amt Small (1-33%) -Necrotic Tissue Type Adherent Slough -Texture (Lesvia-wound Skin Appearance) Assessed,Callus Assessed -Moisture (Lesvia-wound Skin Appearance) Assessed, Assessed Maceration -Color (Lesvia-wound Skin Appearance) Assessed Assessed -Temperature (Lesvia-wound Skin No Abnormality No Abnormality Appearance) (Pt Warm) (Pt Warm) -Tenderness on Palpation (Lesvia-wound No No Skin Appearance) -Ulcer Cleansing Soap and Water Soap and Water -Foul Odor after Cleansing No -Anesthetic Used 5% Lidocaine Gel -Wound Comment(s) left epifix on Lower Limb Edema Present No Right Calf (cm) 46 Point of measurement (cm from the medial 40.5 instep) Right Ankle (cm) 26 Point of Measurement (cm from the medial 27.0 instep) WC - Nurse 2 - General Ulcer CM Notes Start: 01/23/25 10:30 Freq: Status: Active Protocol: Activity Type Activity Date Activity User E-sign Co-sign Detail Recorded Client Recorded Date Recorded By Document 01/23/25 10:50 [id number] 01/23/25 10:56 Document 01/30/25 10:41 [id number] 01/30/25 10:47 Document 02/06/25 11:06 DS [id number] 02/06/25 11:07 DS Edit Result 02/06/25 11:06 DS (1) [id number] 02/06/25 11:08 DS (1) 4.R heel medial - Post Debridement (cm) - Length => 0.1 - Post Debridement (cm) - Width => 0.1 - Post Debridement (cm) - Depth => 0.1 - Total Square (Post) (cm) => 0.01 - Area of Debridement (cm) - Length => 0.1 - Area of Debridement (cm) - Width => 0.1 - Total Square (Area) (cm) => 0.01 - Tunneling => No - Undermining/Tunneling => No - Circular Undermining => No 01/23/25 01/30/25 02/06/25 10:50 10:41 11:06 Wound Center Nurse 2 #6 LT HEEL -Time 10:51 -Correct Patient Yes -Correct Side, Site, Position No -Correct Procedure No -Procedure Performed No -Post Debridement (cm) - Length 0 -Post Debridement (cm) - Width 0 -Post Debridement (cm) - Depth 0 -Total Square (Post) (cm) 0 -Area of Debridement (cm) - Length 0 -Area of Debridement (cm) - Width 0 -Total Square (Area) (cm) 0 -Tunneling No -Undermining/Tunneling No -Circular Undermining No -Wound/Ulcer Outcome Healed- Epithelialized -Ulcer Cleansing Rinsed/ Irrigated with Saline -Foul Odor after Cleansing No -Bioengineered Tissue No -Bleeding Controlled with Pressure -Treatment Response Procedure Tolerated Well -Debridement - Subq, 1st 20sq cm No -Apply Skin Sub - 1st 25 sq cm - Feet 1 -Epifix 18mm Disc Application 1-4 3 5-left 2nd toe -Correct Patient Yes -Correct Side, Site, Position No -Correct Procedure No -Procedure Performed No -Wound/Ulcer Outcome Healed- Epithelialized 4.R heel medial -Time 10:55 10:42 11:06 -Correct Patient Yes Yes Yes -Correct Side, Site, Position Yes Yes Yes -Correct Procedure Yes Yes -Procedure Performed Yes Yes No -Type of Procedure Debridement Debridement -Clinical Debridement Subcutaneous Subcutaneous -Tissue Removed Subcutaneous Subcutaneous -Post Debridement (cm) - Length 0.5 0.6 0.1 -Post Debridement (cm) - Width 1.2 0.8 0.1 -Post Debridement (cm) - Depth 0.1 0.2 0.1 -Total Square (Post) (cm) 0.60 0.48 0.01 -Area of Debridement (cm) - Length 0.5 0.6 0.1 -Area of Debridement (cm) - Width 1.2 0.8 0.1 -Total Square (Area) (cm) 0.60 0.48 0.01 -Tunneling No No No -Undermining/Tunneling No No No -Circular Undermining No No No -Wound/Ulcer Outcome Not Healed Not Healed Not Healed -Ulcer Cleansing Rinsed/ Rinsed/ Irrigated with Irrigated with Saline Saline -Foul Odor after Cleansing No No -Bioengineered Tissue Yes Yes -Type of Bioengineered Tissue Epifix 18mm Epifix 18mm Disc Disc -Expiration Date 09/18/29 11/18/29 -Product Lot Number [id number] -Percent Used 100 100 -Lot number of Saline Used [id number] -Bleeding Controlled with NA Pressure -Treatment Response Procedure Procedure Tolerated Well Tolerated Well -Offloading Yes Yes Yes -Type of Offloading Total Contact Total Contact Total Contact Cast (TCC) - Cast (TCC) - Cast (TCC) - Right ($) Right ($) Right ($) -Assistive Device(s) Wheelchair Wheelchair -Debridement - Subq, 1st 20sq cm No No -Apply Skin Sub - 1st 25 sq cm - Feet 1 1 -Epifix 18mm Disc Application 1-4 3 3 Pain Scale: 0-10 Numeric Is Patient Pain Free? Yes Yes Yes - Nurse 3 - General Ulcer D/C NN Start: 01/23/25 10:30 Freq: Status: Active Protocol: Activity Type Activity Date Activity User E-sign Co-sign Detail Recorded Client Recorded Date Recorded By Document 01/23/25 11:25 ID [id number] 01/23/25 11:27 MT Document 01/30/25 11:00 KW [id number] 01/30/25 11:00 01/23/25 01/30/25 11:25 11:00 Wound Care Center Nurse 3 4.R heel medial -Foul Odor after Cleansing No -Negative Pressure Wound Therapy N/A -Primary Dressing Applied Silicone Border Silicone Border Foam 4x4 Foam 6x6 -Primary Dressing Covered/Secured with Dry Gauze & Roll Gauze, Secured with Tape -Silicone Border Foam 4x4 1 -Silicone Border Foam 6x6 1 -Wound Comment(s) TCC applied RLE -Other tcc applied tcc Pain Scale: 0-10 Numeric Is Patient Pain Free? Yes Yes - Visit Discharge Discharge Condition Stable Stable Ambulatory Status Ambulatory Walker, Wheelchair Transportation Private Auto Medication Reconcilliation completed & No No provided to patient/care provider Clinical Summary of Care Provided Yes Yes Assessment/Plan Assessment/Plan (1) Non-pressure chronic ulcer of other part of right foot with fat layer exposed: CODE(S): L97.512 - Non-pressure chronic ulcer of other part of right foot with fat layer exposed PLAN: Patient was examined and evaluated. All findings were discussed with the patient. All questions were answered to the patient's satisfaction. After exam the patient shows evidence of sanguinous crust with small full- thickness wound measuring 0.1 x 0.1 x 0.1 cm to the right heel. At this time no debridement will be done and we will leave the wound alone. The area was dressed with bordered foam and total contact cast to the right lower extremity. Patient can continue to work with physical therapy as tolerated. Educated patient continue to offload the bilateral lower extremity. Tubigrip was applied to the left lower extremity. He is to practice strict blood sugar control which she is already doing. I did educate the patient that he needs to return to clinic next week with a functional and or diabetic shoe if he does not have [address] in a surgical shoe and discharge him from the wound care center if his wound is completely healed. Everything was explained to the patient and he showed understanding of this. Follow-up at the wound care center with Dr. Cerda in 1 week
[2025-02-13 10:29] VITALS: BP 116/63; PULSE 70; RESP 18; TEMP 36
--- NOTE | 2025-02-13 12:51 | PCM.WC.PN ---
History of Present Illness Date of Service: 02/13/25 Chief Complaint: Diabetic right heel ulceration History of Wound: This is a 69-year-old obese, diabetic male patient whose care has been assumed from Dr. Ramon Garcia, who is departing from our staff. The patient has a chronic ulceration on his right heel, associated with poorly controlled type 2 diabetes mellitus and diabetic polyneuropathy. The patient suffers from multiple other pre-existing medical problems, which are documented herein. The patient's most recent management has been by means of serial debridements, with an EpiFix allograft having been applied at the patient's prior visit on December 11, 2024. Offloading measures and total contact casting have also been a recent cornerstone of the patient's management. 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 Progress of Wound: Healed full-thickness wounds to the left foot. Stable slow healing full-thickness wound right heel with amniotic skin graft substitute and total contact cast. Subjective Subjective Patient is a 69-year-old diabetic male presenting to wound care center today for follow-up evaluation of full-thickness wound amniotic skin graft substitute to the right heel. Patient has been compliant with weightbearing as tolerated in the total contact cast with walking shoe. He is hoping that the wound is healed at this time. He has been participating more in physical therapy admits no pain to the right lower extremity. He denies trauma. Denies constitutional symptoms. No other pedal complaints at this time. Objective Data Objective Data Vital Signs: Vital Signs Temp Pulse Resp BP O2 Del Method 96.8 F L 70 18 116/63 Room Air 02/13/25 10:29 02/13/25 10:29 02/13/25 10:29 02/13/25 10:29 02/13/25 10:29 Oxygen Delivery Method Room Air Lab / Micro Data Micro: Microbiology 01/02/25 14:14 Ulcer, Decubitus - Toe Gram Stain - Final 01/02/25 14:14 Ulcer, Decubitus - Toe Wound Culture - Final Meth. resistant Staph. aureus 01/02/25 14:14 Ulcer, Decubitus - Toe Anaerobic Culture - Final No anaerobic bacteria isolated. Physical Exam Narrative Vascular: DP and PT pulse are palpable. CFT is brisk. Skin temperature is warm to warm from proximal ankles to distal digit bilateral. Nonpitting edema with hemosiderin deposit appreciated bilateral extremity. No erythema bilateral. Neurological:. Light touch is intact. Protective station is diminished. Patient does not respond to painful stimuli. Dermatological: Evidence of full-thickness wound to the right heel measuring 0.4 x 0.6 x 0.1 cm. Wound base is granular with no sign of infection. Excisional debridement down to and including subcutaneous tissue with a number 3 mm dermal curette to the right heel full-thickness wound done without incident. Predebridement measurements callus. Postdebridement measurement is 0.4 x 0.6 x 0.1 cm. Musculoskeletal: No pain to palpation to full-thickness wound bilateral. No pain with calf pressure. Debridement Note Debridement Note Debridement Free Text: Excisional debridement down to and including subcutaneous tissue with a number 3 mm dermal curette to the right heel full-thickness wound done without incident. Predebridement measurements callus. Postdebridement measurement is 0.4 x 0.6 x 0.1 cm. Post-Debridement Measurements and Additional Note: Post-Debridement Measurements/Treatment - Nurse 1 - General Ulcer Assessment Start: 01/23/25 10:30 Freq: Status: Active Protocol: .LOWJOJOT Activity Type Activity Date Activity User E-sign Co-sign Detail Recorded Client Recorded Date Recorded By Document 01/23/25 10:30 [id number] 01/23/25 10:44 Document 01/30/25 10:32 [id number] 01/30/25 10:34 Document 02/06/25 10:28 KW [id number] 02/06/25 10:45 KW Document 02/13/25 10:29 KW [id number] 02/13/25 10:42 KW 01/23/25 01/30/25 02/06/25 10:30 10:32 10:28 - Today's Visit Information Type of service Follow-up Visit Follow-up Visit Follow-up Visit (Physician/ROLLER STITCHER (Physician/ROLLER STITCHER (Physician/ROLLER STITCHER ) ) ) Arrival Mode Walker, Wheelchair Wheelchair Wheelchair Transfer Assistance Manual None Patient Identification Verified (Name & Yes Yes Yes ) Finger Stick Blood Sugar(mg/dl) (if indicated): Blood Sugar Vital Signs Temperature (97.8 F-99.1 F) 96.5 F L 97.2 F L 96.9 F L Temperature Source Temporal Temporal Temporal Pulse Rate (60-100) 65 62 46 L Pulse Location Monitor Monitor Monitor Respiratory Rate (12-18) 16 16 18 Respiratory rate source Observation Monitor Observation Oxygen Delivery Method Room Air Room Air Room Air Blood Pressure (90/60-120/80) 122/65 H 109/55 L 112/44 L Blood Pressure Mean (mm Hg) 84 73 66 Source Monitor Monitor Monitor Position Sitting Sitting Standing Blood Pressure Location Right Arm Right Arm Left Arm History Since Last Visit- (Skip if this is Patient's initial visit) Have you changed medications since your No No No last visit? Any new allergies or adverse reactions No No No Had a fall/change in ADL's that may No No No increase risk of falls Signs or symptoms of abuse and/or No No No neglect since last visit Have you been in the hospital since your No No last visit? Has dressing in place as prescribed Yes Yes Yes Has compression in place as prescribed N/A Yes N/A Has offloadiing in place as prescribed Yes Yes Yes Experienced any changes in pain level or No No No management Left Footwear Total Contact Cast Right Footwear Total Contact Total Contact Regular Shoe Cast Cast Pain Scale: 0-10 Numeric Is Patient Pain Free? Yes Yes Yes 02/13/25 10:29 - Today's Visit Information Type of service Follow-up Visit (Physician/ROLLER STITCHER ) Arrival Mode Wheelchair Transfer Assistance Patient Identification Verified (Name & Yes ) Finger Stick Blood Sugar(mg/dl) (if 126 indicated): Blood Sugar Stated by Patient Vital Signs Temperature (97.8 F-99.1 F) 96.8 F L Temperature Source Temporal Pulse Rate (60-100) 70 Pulse Location Monitor Respiratory Rate (12-18) 18 Respiratory rate source Observation Oxygen Delivery Method Room Air Blood Pressure (90/60-120/80) 116/63 Blood Pressure Mean (mm Hg) 80 Source Monitor Position Sitting Blood Pressure Location Left Arm History Since Last Visit- (Skip if this is Patient's initial visit) Have you changed medications since your No last visit? Any new allergies or adverse reactions No Had a fall/change in ADL's that may No increase risk of falls Signs or symptoms of abuse and/or No neglect since last visit Have you been in the hospital since your No last visit? Has dressing in place as prescribed Yes Has compression in place as prescribed Yes Has offloadiing in place as prescribed Yes Experienced any changes in pain level or No management Left Footwear Regular Shoe Right Footwear Total Contact Cast Pain Scale: 0-10 Numeric Is Patient Pain Free? Yes WC - Nurse 1 - General Ulcer Measurement Start: 01/23/25 10:30 Freq: Status: Active Protocol: Activity Type Activity Date Activity User E-sign Co-sign Detail Recorded Client Recorded Date Recorded By Document 01/23/25 10:30 GM [id number] 01/23/25 10:44 GM Document 01/30/25 10:32 GM [id number] 01/30/25 10:34 GM Document 02/06/25 10:28 KW [id number] 02/06/25 10:45 KW Document 02/13/25 10:29 KW [id number] 02/13/25 10:42 KW 01/23/25 01/30/25 02/06/25 10:30 10:32 10:28 Wound Center Nurse 1 #6 LT HEEL -Combined with other wound No -Current Size (cm) - Length 1.0 -Current Size (cm) - Width 0.5 -Current Size (cm) - Depth 0.1 -Total Square Cm 0.50 -Date of Last Picture (Recall this 01/23/25 field) -Photo Taken Yes -Epithelialization Small 1-33% -Tunneling No -Undermining/Tunneling No -Circular Undermining No -Exudate Amt None Present -Wound Margin Distinct, Outline Attached -Granulation Amt None Present (0 %) -Slough/Fibrin Yes -Necrosis Amt Small (1-33%) -Necrotic Tissue Type Eschar -Texture (Lesvia-wound Skin Appearance) Assessed -Moisture (Lesvia-wound Skin Appearance) Assessed -Color (Lesvia-wound Skin Appearance) Assessed -Temperature (Lesvia-wound Skin No Abnormality Appearance) (Pt Warm) -Ulcer Cleansing Soap and Water -Foul Odor after Cleansing No 4.R heel medial -Current Size (cm) - Length 0.5 0.1 -Current Size (cm) - Width 1.0 0.1 -Current Size (cm) - Depth 0.1 0 -Total Square Cm 0.50 0.01 -Date of Last Picture (Recall this 01/30/25 field) -Photo Taken Yes -Epithelialization Medium 34-66% -Tunneling No -Undermining/Tunneling No -Circular Undermining No -Exudate Amt Medium -Exudate Type Serosanguineous -Wound Margin Distinct, Outline Attached -Granulation Amt Medium (34-66%) -Granulation Quality Red -Slough/Fibrin No -Necrosis Amt Small (1-33%) -Necrotic Tissue Type Adherent Slough -Texture (Lesvia-wound Skin Appearance) Assessed,Callus Assessed -Moisture (Lesvia-wound Skin Appearance) Assessed, Assessed Maceration -Color (Lesvia-wound Skin Appearance) Assessed Assessed -Temperature (Lesvia-wound Skin No Abnormality No Abnormality Appearance) (Pt Warm) (Pt Warm) -Tenderness on Palpation (Lesvia-wound No No Skin Appearance) -Ulcer Cleansing Soap and Water Soap and Water -Foul Odor after Cleansing No -Anesthetic Used 5% Lidocaine Gel -Wound Comment(s) left epifix on Lower Limb Edema Present No Right Calf (cm) 46 Point of measurement (cm from the medial 40.5 instep) Right Ankle (cm) 26 Point of Measurement (cm from the medial 27.0 instep) 02/13/25 10:29 Wound Center Nurse 1 #6 LT HEEL -Combined with other wound -Current Size (cm) - Length -Current Size (cm) - Width -Current Size (cm) - Depth -Total Square Cm -Date of Last Picture (Recall this field) -Photo Taken -Epithelialization -Tunneling -Undermining/Tunneling -Circular Undermining -Exudate Amt -Wound Margin -Granulation Amt -Slough/Fibrin -Necrosis Amt -Necrotic Tissue Type -Texture (Lesvia-wound Skin Appearance) -Moisture (Lesvia-wound Skin Appearance) -Color (Lesvia-wound Skin Appearance) -Temperature (Lesvia-wound Skin Appearance) -Ulcer Cleansing -Foul Odor after Cleansing 4.R heel medial -Current Size (cm) - Length 0.1 -Current Size (cm) - Width 0.2 -Current Size (cm) - Depth 0.1 -Total Square Cm 0.02 -Date of Last Picture (Recall this 02/13/25 field) -Photo Taken -Epithelialization -Tunneling -Undermining/Tunneling -Circular Undermining -Exudate Amt -Exudate Type -Wound Margin -Granulation Amt -Granulation Quality -Slough/Fibrin -Necrosis Amt -Necrotic Tissue Type -Texture (Lesvia-wound Skin Appearance) Assessed -Moisture (Lesvia-wound Skin Appearance) Assessed, Maceration -Color (Lesvia-wound Skin Appearance) Assessed -Temperature (Lesvia-wound Skin No Abnormality Appearance) (Pt Warm) -Tenderness on Palpation (Lesvia-wound No Skin Appearance) -Ulcer Cleansing Soap and Water -Foul Odor after Cleansing No -Anesthetic Used 5% Lidocaine Gel -Wound Comment(s) Lower Limb Edema Present Right Calf (cm) 46 Point of measurement (cm from the medial instep) Right Ankle (cm) 26 Point of Measurement (cm from the medial instep) WC - Nurse 2 - General Ulcer CM Notes Start: 01/23/25 10:30 Freq: Status: Active Protocol: Activity Type Activity Date Activity User E-sign Co-sign Detail Recorded Client Recorded Date Recorded By Document 01/23/25 10:50 [id number] 01/23/25 10:56 Document 01/30/25 10:41 [id number] 01/30/25 10:47 Document 02/06/25 11:06 DS [id number] 02/06/25 11:07 DS Edit Result 02/06/25 11:06 DS (1) [id number] 02/06/25 11:08 DS Document 02/13/25 10:49 JF [id number] 02/13/25 10:53 JF (1) 4.R heel medial - Post Debridement (cm) - Length => 0.1 - Post Debridement (cm) - Width => 0.1 - Post Debridement (cm) - Depth => 0.1 - Total Square (Post) (cm) => 0.01 - Area of Debridement (cm) - Length => 0.1 - Area of Debridement (cm) - Width => 0.1 - Total Square (Area) (cm) => 0.01 - Tunneling => No - Undermining/Tunneling => No - Circular Undermining => No 01/23/25 01/30/25 02/06/25 10:50 10:41 11:06 Wound Center Nurse 2 #6 LT HEEL -Time 10:51 -Correct Patient Yes -Correct Side, Site, Position No -Correct Procedure No -Procedure Performed No -Post Debridement (cm) - Length 0 -Post Debridement (cm) - Width 0 -Post Debridement (cm) - Depth 0 -Total Square (Post) (cm) 0 -Area of Debridement (cm) - Length 0 -Area of Debridement (cm) - Width 0 -Total Square (Area) (cm) 0 -Tunneling No -Undermining/Tunneling No -Circular Undermining No -Wound/Ulcer Outcome Healed- Epithelialized -Ulcer Cleansing Rinsed/ Irrigated with Saline -Foul Odor after Cleansing No -Bioengineered Tissue No -Bleeding Controlled with Pressure -Treatment Response Procedure Tolerated Well -Debridement - Subq, 1st 20sq cm No -Apply Skin Sub - 1st 25 sq cm - Feet 1 -Epifix 18mm Disc Application 1-4 3 5-left 2nd toe -Correct Patient Yes -Correct Side, Site, Position No -Correct Procedure No -Procedure Performed No -Wound/Ulcer Outcome Healed- Epithelialized 4.R heel medial -Time 10:55 10:42 11:06 -Correct Patient Yes Yes Yes -Correct Side, Site, Position Yes Yes Yes -Correct Procedure Yes Yes -Procedure Performed Yes Yes No -Type of Procedure Debridement Debridement -Clinical Debridement Subcutaneous Subcutaneous -Tissue Removed Subcutaneous Subcutaneous -Post Debridement (cm) - Length 0.5 0.6 0.1 -Post Debridement (cm) - Width 1.2 0.8 0.1 -Post Debridement (cm) - Depth 0.1 0.2 0.1 -Total Square (Post) (cm) 0.60 0.48 0.01 -Area of Debridement (cm) - Length 0.5 0.6 0.1 -Area of Debridement (cm) - Width 1.2 0.8 0.1 -Total Square (Area) (cm) 0.60 0.48 0.01 -Tunneling No No No -Undermining/Tunneling No No No -Circular Undermining No No No -Wound/Ulcer Outcome Not Healed Not Healed Not Healed -Ulcer Cleansing Rinsed/ Rinsed/ Irrigated with Irrigated with Saline Saline -Foul Odor after Cleansing No No -Bioengineered Tissue Yes Yes -Type of Bioengineered Tissue Epifix 18mm Epifix 18mm Disc Disc -Expiration Date 09/18/29 11/18/29 -Product Lot Number [id number] -Percent Used 100 100 -Lot number of Saline Used [id number] -Bleeding Controlled with NA Pressure -Treatment Response Procedure Procedure Tolerated Well Tolerated Well -Offloading Yes Yes Yes -Type of Offloading Total Contact Total Contact Total Contact Cast (TCC) - Cast (TCC) - Cast (TCC) - Right ($) Right ($) Right ($) -Assistive Device(s) Wheelchair Wheelchair -Debridement - Subq, 1st 20sq cm No No -Apply Skin Sub - 1st 25 sq cm - Feet 1 1 -Epifix 18mm Disc Application 1-4 3 3 Pain Scale: 0-10 Numeric Is Patient Pain Free? Yes Yes Yes 02/13/25 10:49 Wound Center Nurse 2 #6 LT HEEL -Time -Correct Patient -Correct Side, Site, Position -Correct Procedure -Procedure Performed -Post Debridement (cm) - Length -Post Debridement (cm) - Width -Post Debridement (cm) - Depth -Total Square (Post) (cm) -Area of Debridement (cm) - Length -Area of Debridement (cm) - Width -Total Square (Area) (cm) -Tunneling -Undermining/Tunneling -Circular Undermining -Wound/Ulcer Outcome -Ulcer Cleansing -Foul Odor after Cleansing -Bioengineered Tissue -Bleeding Controlled with -Treatment Response -Debridement - Subq, 1st 20sq cm -Apply Skin Sub - 1st 25 sq cm - Feet -Epifix 18mm Disc Application 1-4 5-left 2nd toe -Correct Patient -Correct Side, Site, Position -Correct Procedure -Procedure Performed -Wound/Ulcer Outcome 4.R heel medial -Time 10:50 -Correct Patient Yes -Correct Side, Site, Position Yes -Correct Procedure Yes -Procedure Performed Yes -Type of Procedure Debridement -Clinical Debridement Subcutaneous -Tissue Removed Subcutaneous -Post Debridement (cm) - Length 0.4 -Post Debridement (cm) - Width 0.6 -Post Debridement (cm) - Depth 0.1 -Total Square (Post) (cm) 0.24 -Area of Debridement (cm) - Length 0.4 -Area of Debridement (cm) - Width 0.6 -Total Square (Area) (cm) 0.24 -Tunneling No -Undermining/Tunneling No -Circular Undermining No -Wound/Ulcer Outcome Not Healed -Ulcer Cleansing Rinsed/ Irrigated with Saline -Foul Odor after Cleansing No -Bioengineered Tissue No -Type of Bioengineered Tissue -Expiration Date -Product Lot Number -Percent Used -Lot number of Saline Used -Bleeding Controlled with Pressure -Treatment Response Procedure Tolerated Well -Offloading Yes -Type of Offloading Surgical Shoe -Assistive Device(s) -Debridement - Subq, 1st 20sq cm Yes -Apply Skin Sub - 1st 25 sq cm - Feet -Epifix 18mm Disc Application 1-4 Pain Scale: 0-10 Numeric Is Patient Pain Free? Yes - Nurse 3 - General Ulcer D/C NN Start: 01/23/25 10:30 Freq: Status: Active Protocol: Activity Type Activity Date Activity User E-sign Co-sign Detail Recorded Client Recorded Date Recorded By Document 01/23/25 11:25 MT [id number] 01/23/25 11:27 MT Document 01/30/25 11:00 KW [id number] 01/30/25 11:00 KW Document 02/06/25 16:15 KW [id number] 02/06/25 16:16 KW Document 02/13/25 12:23 KW [id number] 02/13/25 12:24 KW 01/23/25 01/30/25 02/06/25 11:25 11:00 16:15 Wound Care Center Nurse 3 4.R heel medial -Foul Odor after Cleansing No -Negative Pressure Wound Therapy N/A -Primary Dressing Applied Silicone Border Silicone Border Silicone Border Foam 4x4 Foam 6x6 Foam 6x6 -Primary Dressing Covered/Secured with Dry Gauze & Dry Gauze & Roll Gauze, Roll Gauze, Secured with Secured with Tape Tape -Promogran Roseanna Matter -Silicone Border Foam 4x4 1 -Silicone Border Foam 6x6 1 1 -Wound Comment(s) TCC applied RLE -Compression Wrap -Other tcc applied tcc Pain Scale: 0-10 Numeric Is Patient Pain Free? Yes Yes Yes - Visit Discharge Discharge Condition Stable Stable Stable Ambulatory Status Ambulatory Walker, Wheelchair Wheelchair Transportation Private Auto Private Auto Medication Reconcilliation completed & No No No provided to patient/care provider Clinical Summary of Care Provided Yes Yes Yes 02/13/25 12:23 Wound Care Center Nurse 3 4.R heel medial -Foul Odor after Cleansing -Negative Pressure Wound Therapy -Primary Dressing Applied Promogran Roseanna Matter, Silicone Border Foam 4x4 -Primary Dressing Covered/Secured with Dry Gauze & Roll Gauze, Secured with Tape -Promogran Roseanna Matter 1 -Silicone Border Foam 4x4 1 -Silicone Border Foam 6x6 -Wound Comment(s) RLE -Compression Wrap Matthew Wrap -Other 4in and 6in Pain Scale: 0-10 Numeric Is Patient Pain Free? Yes WC - Visit Discharge Discharge Condition Stable Ambulatory Status Wheelchair Transportation Medication Reconcilliation completed & No provided to patient/care provider Clinical Summary of Care Provided Yes Assessment/Plan Assessment/Plan (1) Non-pressure chronic ulcer of other part of right foot with fat layer exposed: CODE(S): L97.512 - Non-pressure chronic ulcer of other part of right foot with fat layer exposed PLAN: Patient was examined and evaluated. All findings were discussed with the patient. All questions were answered to the patient's satisfaction. Excisional debridement down to and including subcutaneous tissue with a number 3 mm dermal curette to the right heel full-thickness wound done without incident. Predebridement measurements callus. Postdebridement measurement is 0.4 x 0.6 x 0.1 cm. The right heel was wiped clean and patted dry. Moist Roseanna followed by dry sterile dressing and Matthew wrap was donned to the right lower extremity followed by surgical shoe. Patient will have the group home facility change his dressing every other day as written. Patient is to offload his left heel and to be weightbearing as tolerated as well as working with physical therapy as tolerated. Follow-up at the wound care center with Dr. Cerda in 2 week
--- NOTE | 2025-02-13 13:46 | WC ---
PHOTO-RIGHT HEEL 02/13/25
== END 2025-02-17 23:59 | disposition home or self-care (01) ==
LOC: WC 10:15
PROVIDERS: PCP Family Medicine; Referring Provider Podiatrist; Visit Provider Podiatrist Foot & Ankle Surgery
DX: E11.621 Type 2 diabetes mellitus with foot ulcer (principal); L97.512 Non-pressure chronic ulcer of other part of right foot with fat layer exposed; E11.42 Type 2 diabetes mellitus with diabetic polyneuropathy; E11.65 Type 2 diabetes mellitus with hyperglycemia; E66.9 Obesity, unspecified
CPT/HCPCS: 11042; 15275; 29445; 99213; Q4186; G0463

== ENCOUNTER 2025-03-06 10:30 | Outpatient (RCR) | payer MEDICARE, OTHER, SELFPAY ==
[2025-02-27 10:32] VITALS: BP 109/64; PULSE 83; RESP 18; TEMP 36.6
--- NOTE | 2025-02-27 11:05 | PN.PCM_ITS ---
History of Present Illness Date of Service: 02/27/25 Chief Complaint: Diabetic right heel ulceration History of Wound: This is a 69-year-old obese, diabetic male patient whose care has been assumed from Dr. Ramon Garcia, who is departing from our staff. The patient has a chronic ulceration on his right heel, associated with poorly controlled type 2 diabetes mellitus and diabetic polyneuropathy. The patient suffers from multiple other pre-existing medical problems, which are documented herein. The patient's most recent management has been by means of serial debridements, with an EpiFix allograft having been applied at the patient's prior visit on December 11, 2024. Offloading measures and total contact casting have also been a recent cornerstone of the patient's management. 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 Progress of Wound: Right lower extremity healed heel wound with breakdown of skin secondary to venous insufficiency of the right leg. Subjective Subjective Patient is a 69-year-old diabetic male presenting to clinic today follow-up evaluation of full-thickness wound that is healed secondary to application of amniotic skin graft substitute to the right lower extremity. Patient has some new wounds on the right leg secondary to venous insufficiency. He was being treated with Matthew wrap's at that facility. He is working with physical therapy and walked 70 steps the other day. His goal is to be walking with a cane and then he will be discharged from the facility. He denies trauma. Denies constitutional symptoms. No other pedal complaints at this time. Objective Data Objective Data Vital Signs: Vital Signs Temp Pulse Resp BP O2 Del Method 98 F 83 18 109/64 Room Air 02/27/25 10:32 02/27/25 10:32 02/27/25 10:32 02/27/25 10:32 02/27/25 10:32 Oxygen Delivery Method Room Air Lab / Micro Data Micro: Microbiology 01/02/25 14:14 Ulcer, Decubitus - Toe Gram Stain - Final 01/02/25 14:14 Ulcer, Decubitus - Toe Wound Culture - Final Meth. resistant Staph. aureus 01/02/25 14:14 Ulcer, Decubitus - Toe Anaerobic Culture - Final No anaerobic bacteria isolated. Physical Exam Narrative Vascular: DP and PT pulse are palpable. CFT is brisk. Skin temperature is warm to warm from proximal ankles to distal digit bilateral. Nonpitting edema with hemosiderin deposit appreciated bilateral extremity. No erythema bilateral. Neurological:. Light touch is intact. Protective station is diminished. Patient does not respond to painful stimuli. Dermatological: Full-thickness wound to the right heel shows evidence of callus and is healed at this time. There is new evidence of cluster wounds to the anterior right leg measuring 2.4 x 2.1 x 0.1 cm. All wound base is granular with no sign of infection. Excisional debridement down to and including subcutaneous tissue with a number 3 mm dermal curette to the anterior right leg full-thickness wound cluster done without incident. Predebridement measurement was 2.0 x 2.0 x 0.1 cm. Postdebridement measurement is 2.4 x 2.1 x 0.1 cm. Musculoskeletal: No pain to palpation to full-thickness wound bilateral. No pain with calf pressure. Debridement Note Debridement Note Debridement Free Text: Excisional debridement down to and including subcutaneous tissue with a number 3 mm dermal curette to the anterior right leg full- thickness wound cluster done without incident. Predebridement measurement was 2.0 x 2.0 x 0.1 cm. Postdebridement measurement is 2.4 x 2.1 x 0.1 cm. Post-Debridement Measurements and Additional Note: Post-Debridement Measurements/Treatment - Nurse 1 - General Ulcer Assessment Start: 02/27/25 10:31 Freq: Status: Active Protocol: MARGY Activity Type Activity Date Activity User E-sign Co-sign Detail Recorded Client Recorded Date Recorded By Document 02/27/25 10:32 [place] [id number] 02/27/25 10:44 [place] 02/27/25 10:32 - Today's Visit Information Type of service Follow-up Visit (Physician/REGIONAL SALES LEADER ) Arrival Mode Ambulatory Accompanied by SELF Patient Identification Verified (Name & Yes ) Safety Precautions Fall Prevention Vital Signs Temperature (97.8 F-99.1 F) 98 F Temperature Source Temporal Pulse Rate (60-100) 83 Pulse Location Monitor Respiratory Rate (12-18) 18 Respiratory rate source Observation Oxygen Delivery Method Room Air Blood Pressure (90/60-120/80) 109/64 Blood Pressure Mean (mm Hg) 79 Source Monitor Position Sitting Blood Pressure Location Right Arm History Since Last Visit- (Skip if this is Patient's initial visit) Has dressing in place as prescribed Yes Has compression in place as prescribed Yes Has offloadiing in place as prescribed Yes Experienced any changes in pain level or Yes management Left Footwear Regular Shoe Right Footwear Regular Shoe Pain Scale: 0-10 Numeric Is Patient Pain Free? Yes WC - Nurse 1 - General Ulcer Measurement Start: 02/27/25 10:31 Freq: Status: Active Protocol: Activity Type Activity Date Activity User E-sign Co-sign Detail Recorded Client Recorded Date Recorded By Document 02/27/25 10:32 [place] [id number] 02/27/25 10:44 [place] 02/27/25 10:32 Wound Center Nurse 1 5-left 2nd toe -Current Size (cm) - Length 0.1 -Current Size (cm) - Width 0.1 -Current Size (cm) - Depth 0.1 -Total Square Cm 0.01 -Date of Last Picture (Recall this 02/27/25 field) -Photo Taken Yes -Tunneling No -Undermining/Tunneling No -Circular Undermining No -Exudate Amt Small -Exudate Type Serosanguineous -Wound Margin Flat & Intact -Granulation Amt Large (67-100%) -Granulation Quality Pale,[place] -Slough/Fibrin No -Necrosis Amt Small (1-33%) -Necrotic Tissue Type Adherent Slough -Texture (Lesvia-wound Skin Appearance) Assessed -Moisture (Lesvia-wound Skin Appearance) Assessed -Color (Lesvia-wound Skin Appearance) Assessed -Temperature (Lesvia-wound Skin No Abnormality Appearance) (Pt Warm) -Tenderness on Palpation (Lesvia-wound No Skin Appearance) -Ulcer Cleansing Soap and Water -Foul Odor after Cleansing No -Anesthetic Used 5% Lidocaine Gel 4.R heel medial -Current Size (cm) - Length 0.1 -Current Size (cm) - Width 0.1 -Current Size (cm) - Depth 0.1 -Total Square Cm 0.01 -Date of Last Picture (Recall this 02/27/25 field) -Photo Taken Yes -Tunneling No -Undermining/Tunneling No -Circular Undermining No -Exudate Amt Small -Exudate Type Serosanguineous -Wound Margin Flat & Intact -Granulation Amt Large (67-100%) -Granulation Quality Pale,[place] -Necrosis Amt Small (1-33%) -Necrotic Tissue Type Adherent Slough -Texture (Lesvia-wound Skin Appearance) Assessed -Moisture (Lesvia-wound Skin Appearance) Assessed -Color (Lesvia-wound Skin Appearance) Assessed -Temperature (Lesvia-wound Skin No Abnormality Appearance) (Pt Warm) -Tenderness on Palpation (Lesvia-wound No Skin Appearance) -Ulcer Cleansing Soap and Water -Foul Odor after Cleansing No -Anesthetic Used 5% Lidocaine Gel WC - Nurse 2 - General Ulcer CM Notes Start: 02/27/25 10:31 Freq: Status: Active Protocol: Activity Type Activity Date Activity User E-sign Co-sign Detail Recorded Client Recorded Date Recorded By Document 02/27/25 10:50 ÁNGEL [id number] 02/27/25 10:53 ÁNGEL 02/27/25 10:50 Wound Center Nurse 2 5-left 2nd toe -Correct Patient Yes -Correct Side, Site, Position No -Correct Procedure No -Procedure Performed No -Post Debridement (cm) - Length 0 -Post Debridement (cm) - Width 0 -Post Debridement (cm) - Depth 0 -Total Square (Post) (cm) 0 -Area of Debridement (cm) - Length 0 -Area of Debridement (cm) - Width 0 -Total Square (Area) (cm) 0 -Wound/Ulcer Outcome Healed- Epithelialized RIGHT QUINN CLUSTER -Time 10:52 -Correct Patient Yes -Correct Side, Site, Position Yes -Correct Procedure Yes -Procedure Performed Yes -Type of Procedure Debridement -Clinical Debridement Subcutaneous -Tissue Removed Subcutaneous -Post Debridement (cm) - Length 2.4 -Post Debridement (cm) - Width 2.1 -Post Debridement (cm) - Depth 0.1 -Total Square (Post) (cm) 5.04 -Area of Debridement (cm) - Length 2.4 -Area of Debridement (cm) - Width 2.1 -Total Square (Area) (cm) 5.04 -Tunneling No -Undermining/Tunneling No -Circular Undermining No -Wound/Ulcer Outcome Not Healed -Ulcer Cleansing Rinsed/ Irrigated with Saline -Foul Odor after Cleansing No -Bioengineered Tissue No -Bleeding Controlled with Pressure -Treatment Response Procedure Tolerated Well -Offloading No -Debridement - Subq, 1st 20sq cm Yes 4.R heel medial -Correct Patient Yes -Correct Side, Site, Position No -Correct Procedure No -Procedure Performed No -Post Debridement (cm) - Length 0 -Post Debridement (cm) - Width 0 -Post Debridement (cm) - Depth 0 -Total Square (Post) (cm) 0 -Area of Debridement (cm) - Length 0 -Area of Debridement (cm) - Width 0 -Total Square (Area) (cm) 0 -Wound/Ulcer Outcome Healed- Epithelialized Pain Scale: 0-10 Numeric Is Patient Pain Free? Yes Assessment/Plan Assessment/Plan (1) Non-pressure chronic ulcer of other part of right lower leg with fat layer exposed: CODE(S): L97.812 - Non-pressure chronic ulcer of other part of right lower leg with fat layer exposed PLAN: Patient was examined and evaluated. All findings were discussed with the patient. All questions were answered to the patient's satisfaction. After exam the patient's heel wound shows evidence of callus and we will not debrided during today's visit. Will focus on the anterior right leg multiple full-thickness wound cluster secondary to venous insufficiency. Excisional debridement down to and including subcutaneous tissue with a number 3 mm dermal curette to the anterior right leg full-thickness wound cluster done without incident. Predebridement measurement was 2.0 x 2.0 x 0.1 cm. Postdebridement measurement is 2.4 x 2.1 x 0.1 cm. The right leg was cleaned and patted dry. Triple antibiotic, dry sterile dressing and Tubigrip was applied and double layer to the right lower extremity followed by Betadine to the right heel. Patient will continue to practice strict blood sugar control. Patient will continue to walk and practice walking with physical therapy so that he can advance to a cane and then be discharged from the facility. I educated the patient that he needs to reach out to social work at his facility to try to get diabetic shoes from either [email or web address] or supplier that will dispense shoes while in the facility. Follow-up at the wound care center with Dr. Cerda in 1 week. (2) Non-pressure chronic ulcer of other part of right foot with fat layer exposed: CODE(S): L97.512 - Non-pressure chronic ulcer of other part of right foot with fat layer exposed PLAN: Patient was examined and evaluated. All findings were discussed with the patient. All questions were answered to the patient's satisfaction. Excisional debridement down to and including subcutaneous tissue with a number 3 mm dermal curette to the right heel full-thickness wound done without incident. Predebridement measurements callus. Postdebridement measurement is 0.4 x 0.6 x 0.1 cm. The right heel was wiped clean and patted dry. Moist Roseanna followed by dry sterile dressing and Matthew wrap was donned to the right lower extremity followed by surgical shoe. Patient will have the care home facility change his dressing every other day as written. Patient is to offload his left heel and to be weightbearing as tolerated as well as working with physical therapy as tolerated. Follow-up at the wound care center with Dr. Cerda in 2 week
[2025-03-06 10:36] VITALS: BP 115/64; PULSE 86; RESP 16; TEMP 36.3
--- NOTE | 2025-03-06 12:53 | PN.PCM_ITS ---
History of Present Illness Date of Service: 03/06/25 Chief Complaint: Diabetic right heel ulceration History of Wound: This is a 69-year-old obese, diabetic male patient whose care has been assumed from Dr. Ramon Garcia, who is departing from our staff. The patient has a chronic ulceration on his right heel, associated with poorly controlled type 2 diabetes mellitus and diabetic polyneuropathy. The patient suffers from multiple other pre-existing medical problems, which are documented herein. The patient's most recent management has been by means of serial debridements, with an EpiFix allograft having been applied at the patient's prior visit on December 11, 2024. Offloading measures and total contact casting have also been a recent cornerstone of the patient's management. 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 Progress of Wound: Right lower extremity healed heel wound with breakdown of skin secondary to venous insufficiency of the right leg. Subjective Subjective Is a 69-year-old diabetic male presenting to wound care center today follow-up evaluation of full-thickness wound to left heel and breakdown of skin to the right leg. Patient has been wearing the double layer Tubigrip and working with physical therapy with a surgical shoe donned to the right lower extremity. He has not gotten a new pair shoes at this time. He will be purchasing shoes himself from a store within his vicinity. His blood sugars well-controlled. He denies trauma. Denies constitutional symptoms. No other pedal complaints at this time. Objective Data Objective Data Vital Signs: Vital Signs Temp Pulse Resp BP O2 Del Method 97.3 F L 86 16 115/64 Room Air 03/06/25 10:36 03/06/25 10:36 03/06/25 10:36 03/06/25 10:36 02/27/25 10:32 Oxygen Delivery Method Room Air Lab / Micro Data Micro: Microbiology 01/02/25 14:14 Ulcer, Decubitus - Toe Gram Stain - Final 01/02/25 14:14 Ulcer, Decubitus - Toe Wound Culture - Final Meth. resistant Staph. aureus 01/02/25 14:14 Ulcer, Decubitus - Toe Anaerobic Culture - Final No anaerobic bacteria isolated. Physical Exam Narrative Vascular: DP and PT pulse are palpable. CFT is brisk. Skin temperature is warm to warm from proximal ankles to distal digit bilateral. Nonpitting edema with hemosiderin deposit appreciated bilateral extremity. No erythema bilateral. Neurological:. Light touch is intact. Protective station is diminished. Patient does not respond to painful stimuli. Dermatological: Full-thickness wound to the right heel measures 0.1 x 0.1 x 0.1 cm. Wound base is granular with no concern for infection. All wounds anterior right leg are now healed. Musculoskeletal: No pain to palpation to full-thickness wound bilateral. No pain with calf pressure. Debridement Note Debridement Note Post-Debridement Measurements and Additional Note: Post-Debridement Measurements/Treatment - Nurse 1 - General Ulcer Assessment Start: 02/27/25 10:31 Freq: Status: Active Protocol: [email or web address] Activity Type Activity Date Activity User E-sign Co-sign Detail Recorded Client Recorded Date Recorded By Document 02/27/25 10:32 MT [id number] 02/27/25 10:44 MT Document 03/06/25 10:36 CP [id number] 03/06/25 10:41 CP 02/27/25 03/06/25 10:32 10:36 - Today's Visit Information Type of service Follow-up Visit Follow-up Visit (Physician/STATISTICS INTERN (Physician/STATISTICS INTERN ) ) Arrival Mode Ambulatory Ambulatory Accompanied by SELF Patient Identification Verified (Name & Yes ) Safety Precautions Fall Prevention Vital Signs Temperature (97.8 F-99.1 F) 98 F 97.3 F L Temperature Source Temporal Temporal Pulse Rate (60-100) 83 86 Pulse Location Monitor Monitor Respiratory Rate (12-18) 18 16 Respiratory rate source Observation Observation Oxygen Delivery Method Room Air Blood Pressure (90/60-120/80) 109/64 115/64 Blood Pressure Mean (mm Hg) 79 81 Source Monitor Monitor Position Sitting Sitting Blood Pressure Location Right Arm Right Arm History Since Last Visit- (Skip if this is Patient's initial visit) Have you changed medications since your No last visit? Any new allergies or adverse reactions No Had a fall/change in ADL's that may No increase risk of falls Signs or symptoms of abuse and/or No neglect since last visit Have you been in the hospital since your No last visit? Has dressing in place as prescribed Yes Has compression in place as prescribed Yes Yes Has offloadiing in place as prescribed Yes N/A Experienced any changes in pain level or Yes management Left Footwear Regular Shoe Right Footwear Regular Shoe Pain Scale: 0-10 Numeric Is Patient Pain Free? Yes Yes WC - Nurse 1 - General Ulcer Measurement Start: 02/27/25 10:31 Freq: Status: Active Protocol: Activity Type Activity Date Activity User E-sign Co-sign Detail Recorded Client Recorded Date Recorded By Document 02/27/25 10:32 MT [id number] 02/27/25 10:44 MT Document 03/06/25 10:36 CP [id number] 03/06/25 10:41 CP 02/27/25 03/06/25 10:32 10:36 Wound Center Nurse 1 RIGHT QUINN CLUSTER -Current Size (cm) - Length 0 -Current Size (cm) - Width 0 -Current Size (cm) - Depth 0 -Total Square Cm 0 5-left 2nd toe -Current Size (cm) - Length 0.1 -Current Size (cm) - Width 0.1 -Current Size (cm) - Depth 0.1 -Total Square Cm 0.01 -Date of Last Picture (Recall this 02/27/25 field) -Photo Taken Yes -Tunneling No -Undermining/Tunneling No -Circular Undermining No -Exudate Amt Small -Exudate Type Serosanguineous -Wound Margin Flat & Intact -Granulation Amt Large (67-100%) -Granulation Quality Pale,[place] -Slough/Fibrin No -Necrosis Amt Small (1-33%) -Necrotic Tissue Type Adherent Slough -Texture (Elsvia-wound Skin Appearance) Assessed -Moisture (Lesvia-wound Skin Appearance) Assessed -Color (Lesvia-wound Skin Appearance) Assessed -Temperature (Lesvia-wound Skin No Abnormality Appearance) (Pt Warm) -Tenderness on Palpation (Lesvia-wound No Skin Appearance) -Ulcer Cleansing Soap and Water -Foul Odor after Cleansing No -Anesthetic Used 5% Lidocaine Gel 4.R heel medial -Current Size (cm) - Length 0.1 0.1 -Current Size (cm) - Width 0.1 0.1 -Current Size (cm) - Depth 0.1 0.1 -Total Square Cm 0.01 0.01 -Date of Last Picture (Recall this 02/27/25 field) -Photo Taken Yes -Tunneling No -Undermining/Tunneling No -Circular Undermining No -Exudate Amt Small -Exudate Type Serosanguineous -Wound Margin Flat & Intact -Granulation Amt Large (67-100%) -Granulation Quality Pale,[place] -Necrosis Amt Small (1-33%) -Necrotic Tissue Type Adherent Slough -Texture (Lesvia-wound Skin Appearance) Assessed -Moisture (Lesvia-wound Skin Appearance) Assessed -Color (Lesvia-wound Skin Appearance) Assessed -Temperature (Lesvia-wound Skin No Abnormality Appearance) (Pt Warm) -Tenderness on Palpation (Lesvia-wound No Skin Appearance) -Ulcer Cleansing Soap and Water -Foul Odor after Cleansing No -Anesthetic Used 5% Lidocaine Gel Right Calf (cm) 41.5 Right Ankle (cm) 29 WC - Nurse 2 - General Ulcer CM Notes Start: 02/27/25 10:31 Freq: Status: Active Protocol: Activity Type Activity Date Activity User E-sign Co-sign Detail Recorded Client Recorded Date Recorded By Document 02/27/25 10:50 ÁNGEL [id number] 02/27/25 10:53 Document 03/06/25 10:53 [id number] 03/06/25 10:54 02/27/25 03/06/25 10:50 10:53 Wound Center Nurse 2 RIGHT QUINN CLUSTER -Time 10:52 -Correct Patient Yes Yes -Correct Side, Site, Position Yes No -Correct Procedure Yes No -Procedure Performed Yes No -Type of Procedure Debridement -Clinical Debridement Subcutaneous -Tissue Removed Subcutaneous -Post Debridement (cm) - Length 2.4 0 -Post Debridement (cm) - Width 2.1 0 -Post Debridement (cm) - Depth 0.1 0 -Total Square (Post) (cm) 5.04 0 -Area of Debridement (cm) - Length 2.4 0 -Area of Debridement (cm) - Width 2.1 0 -Total Square (Area) (cm) 5.04 0 -Tunneling No -Undermining/Tunneling No -Circular Undermining No -Wound/Ulcer Outcome Not Healed Healed- Epithelialized -Ulcer Cleansing Rinsed/ Irrigated with Saline -Foul Odor after Cleansing No -Bioengineered Tissue No -Bleeding Controlled with Pressure -Treatment Response Procedure Tolerated Well -Offloading No -Debridement - Subq, 1st 20sq cm Yes 5-left 2nd toe -Correct Patient Yes -Correct Side, Site, Position No -Correct Procedure No -Procedure Performed No -Post Debridement (cm) - Length 0 -Post Debridement (cm) - Width 0 -Post Debridement (cm) - Depth 0 -Total Square (Post) (cm) 0 -Area of Debridement (cm) - Length 0 -Area of Debridement (cm) - Width 0 -Total Square (Area) (cm) 0 -Wound/Ulcer Outcome Healed- Epithelialized 4.R heel medial -Correct Patient Yes Yes -Correct Side, Site, Position No No -Correct Procedure No No -Procedure Performed No No -Post Debridement (cm) - Length 0 0.1 -Post Debridement (cm) - Width 0 0.1 -Post Debridement (cm) - Depth 0 0.1 -Total Square (Post) (cm) 0 0.01 -Area of Debridement (cm) - Length 0 0.1 -Area of Debridement (cm) - Width 0 0.1 -Total Square (Area) (cm) 0 0.01 -Wound/Ulcer Outcome Healed- Not Healed Epithelialized Pain Scale: 0-10 Numeric Is Patient Pain Free? Yes Yes - Nurse 3 - General Ulcer D/C NN Start: 02/27/25 10:31 Freq: Status: Active Protocol: Activity Type Activity Date Activity User E-sign Co-sign Detail Recorded Client Recorded Date Recorded By Document 02/27/25 11:13 ID [id number] 02/27/25 11:20 ID Document 03/06/25 11:08 [id number] 03/06/25 11:08 02/27/25 03/06/25 11:13 11:08 Wound Care Center Nurse 3 RIGHT QUINN CLUSTER -Foul Odor after Cleansing No -Negative Pressure Wound Therapy N/A -Other Dressing BACITRACIN AND BETADINE -Primary Dressing Covered/Secured with Dry Gauze & Roll Gauze, Secured with Tape BLE -Lotion applied to leg before Yes compression wrap -Tubular Bandage Double Layer Double Layer -Size of Tubigrip Used Size E Size E -Size E ($) 2 2 Pain Scale: 0-10 Numeric Is Patient Pain Free? Yes Yes - Visit Discharge Discharge Condition Stable Ambulatory Status Wheelchair Transportation Private Auto Assessment/Plan Assessment/Plan (1) Non-pressure chronic ulcer of other part of right lower leg with fat layer exposed: CODE(S): L97.812 - Non-pressure chronic ulcer of other part of right lower leg with fat layer exposed PLAN: Patient was examined and evaluated. All findings were discussed with the patient. All questions were answered to the patient's satisfaction. After exam the patient's full-thickness wound to the right heel measures 0.1 x 0.1 x 0.1 cm. No debridement was done at this time. The right leg is now healed. Patient will continue physical therapy with surgical shoe and diabetic shoe donned to left lower extremity. Recommended the patient follow-up with [employer] shoe store for extra-depth shoes to be sized and fitted to his specifications she is understanding of. Follow-up at the wound care center with Dr. Cerda in 1 week. (2) Non-pressure chronic ulcer of other part of right foot with fat layer exposed: CODE(S): L97.512 - Non-pressure chronic ulcer of other part of right foot with fat layer exposed
--- NOTE | 2025-03-07 07:46 | WC ---
PHOTO - RIGHT QUINN 03/06/25
== END 2025-03-19 23:59 | disposition home or self-care (01) ==
LOC: WC 10:30
PROVIDERS: PCP Family Medicine; Referring Provider Podiatrist; Visit Provider Podiatrist Foot & Ankle Surgery
DX: E11.621 Type 2 diabetes mellitus with foot ulcer (principal); L97.812 Non-pressure chronic ulcer of other part of right lower leg with fat layer exposed; L97.512 Non-pressure chronic ulcer of other part of right foot with fat layer exposed; E11.59 Type 2 diabetes mellitus with other circulatory complications; E11.42 Type 2 diabetes mellitus with diabetic polyneuropathy; E11.65 Type 2 diabetes mellitus with hyperglycemia; I87.2 Venous insufficiency (chronic) (peripheral); E66.9 Obesity, unspecified
CPT/HCPCS: 11042; 99213; G0463

== ENCOUNTER 2025-03-20 09:56 | Outpatient (RCR) | payer MEDICARE, OTHER, SELFPAY ==
[2025-03-20 10:12] VITALS: BP 121/56; PULSE 71; RESP 18; TEMP 35.9
--- NOTE | 2025-03-20 13:10 | PCM.WC.PN ---
History of Present Illness Date of Service: 03/20/25 Chief Complaint: Diabetic right heel ulceration History of Wound: This is a 69-year-old obese, diabetic male patient whose care has been assumed from Dr. Ramon Garcia, who is departing from our staff. The patient has a chronic ulceration on his right heel, associated with poorly controlled type 2 diabetes mellitus and diabetic polyneuropathy. The patient suffers from multiple other pre-existing medical problems, which are documented herein. The patient's most recent management has been by means of serial debridements, with an EpiFix allograft having been applied at the patient's prior visit on December 11, 2024. Offloading measures and total contact casting have also been a recent cornerstone of the patient's management. 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 Progress of Wound: Healed full-thickness heel wound to the right lower extremity. Subjective Subjective Patient is a 69-year-old diabetic male presenting to wound care center today follow-up evaluation of full-thickness wound to the right heel. Patient states that the right heel wound is now completely healed. He did get 2 pairs of double depth shoe from [employer] store. He is working with physical therapy at his facility. He does admit to some swelling right greater than left to the bilateral lower extremity. No full-thickness wounds are noted. His blood sugars well-controlled. He denies trauma. Denies constitutional symptoms. No other pedal complaints at this time. Objective Data Objective Data Vital Signs: Vital Signs Temp Pulse Resp BP O2 Del Method 96.6 F L 71 18 121/56 H Room Air 03/20/25 10:12 03/20/25 10:12 03/20/25 10:12 03/20/25 10:12 03/20/25 10:12 Oxygen Delivery Method Room Air
--- NOTE | 2025-03-21 09:35 | WC ---
PHOTO-RIGHT QUINN 03/20/25
--- NOTE | 2025-03-21 10:01 | WC ---
PHOTO-LEFT HEEL 03/20/25
--- NOTE | 2025-03-21 10:02 | WC ---
PHOTO-LEFT HEEL 03/20/25
--- NOTE | 2025-03-21 10:03 | WC ---
PHOTO-RIGHT HEEL 03/20/25
== END 2025-03-20 11:33 | disposition home or self-care (01) ==
LOC: WC 09:56
PROVIDERS: PCP Family Medicine; Referring Provider Podiatrist; Visit Provider Podiatrist Foot & Ankle Surgery
DX: E11.622 Type 2 diabetes mellitus with other skin ulcer (principal); L97.812 Non-pressure chronic ulcer of other part of right lower leg with fat layer exposed; E11.65 Type 2 diabetes mellitus with hyperglycemia; E11.42 Type 2 diabetes mellitus with diabetic polyneuropathy; E66.9 Obesity, unspecified
CPT/HCPCS: 99213; G0463

== ENCOUNTER → 2025-04-09 | Outpatient (REF) | payer MEDICARE, OTHER, SELFPAY | LOC: OLS.SW 04:00 | PROVIDERS: PCP Family Medicine; Referring Provider Internal Medicine; Visit Provider Internal Medicine | DX: E11.65 Type 2 diabetes mellitus with hyperglycemia (principal) | CPT/HCPCS: 36415; 83036 ==

== ENCOUNTER 2025-05-23 16:56 | Emergency (ER) | payer MEDICARE, OTHER, SELFPAY ==
[2025-05-23 16:58] VITALS: BP 140/66; PULSE 77; RESP 16; TEMP 36.6; O2SAT 98; BMI 49.8
--- NOTE | 2025-05-23 17:21 | ED.VIS.LOWEX ---
HPI History of Present Illness HPI Narrative: Patient with left hip and knee pain that began today. Patient states he lost his balance and fell. Patient states he was unable to stand after the fall. Patient describes his pain as dull. Patient states it is worse with any weightbearing. Patient states it is better with rest. Patient denies any paresthesias or weakness. Patient denies any head injury or loss of consciousness. Patient denies any other injuries. Chief Complaint: Lower Extremity Injury Informant: patient Occured/Mechanism Mechanism/Context: Yes fall Onset/Context/Timing Onset: Today Context: Sudden Onset Timing: Continuous Quality of Pain: Dull Location: Left hip, thigh, and knee Worsened by: Weightbearing Relieved by: Rest Associated Symptoms Associated Symptoms: Negative for Parasthesia, Weakness or Loss of Funtion PFSH [facility] Medical History MRSA (methicillin resistant staph aureus) culture positive Chronic anticoagulation Type 2 diabetes mellitus with diabetic polyneuropathy Kidney stones Chronic cellulitis Streptococcal bacteremia Hyperglycemia due to diabetes mellitus Fall Wears glasses Depression Anxiety Alcohol use History of ulceration Ambulates with cane Insulin dependent diabetes mellitus Arthritis Low iron Dietary restriction Former smoker Shortness of breath on exertion Leg cramps History of pain when walking History of edema Cardiology follow-up encounter History of echocardiogram Blackout Restless legs HTN (hypertension) Diabetes BiPAP (biphasic positive airway pressure) dependence Atrial fibrillation Hyperlipidemia Thyroid nodule Lower extremity neuropathy Essential (primary) hypertension Type 2 diabetes mellitus Morbid obesity Obstructive sleep apnea New onset atrial fibrillation (10/01/20) Pickwickian syndrome Bilateral leg edema Home Medications ?Medication ?Instructions ?Recorded ?Last Taken ?Type losartan 100 mg tablet 100 mg PO QHS Check with primary 04/04/14 10/08/24 History doctor metformin 1,000 mg tablet 1,000 mg PO BIDCM diabetes 04/04/14 10/09/24 History amlodipine 5 mg tablet 5 mg PO QHS BP 10/01/20 10/08/24 History qlsnamiv-zs-dwhjh 300 mcg-K 60 1 tablet PO DAILY supplemetn 10/01/20 05/21/23 History mcg-lycop 600 mcg-lutein 300 mcg tablet insulin glargine U-300 conc 300 25 unit subcut QHS diabetes 09/27/22 05/20/23 History unit/mL (3 mL) subcutaneous pen (Toujeo Max U-300 SoloStar) apixaban 5 mg tablet 5 mg PO BID blood thinner 11/29/22 10/09/24 History gabapentin 800 mg tablet 800 mg PO .COMPLEX PRN neuropathy 11/29/22 10/09/24 History pen needle, diabetic 32 gauge x #1,200 ea 05/23/23 Unknown Rx blood sugar diagnostic (OneTouch #10 ea 07/11/23 Unknown History Ultra Test strips) metoprolol tartrate 50 mg tablet 50 mg PO BID blood pressure 10/09/24 10/11/24 History acetaminophen 325 mg tablet 650 mg (2 x 325 mg) PO Q6H PRN PRN 10/16/24 Unknown Rx Pain 1-10 Or Fever >100.7 #0 tabs meropenem 1 gram intravenous 1 g IV Q8 37 days #111 ea 10/16/24 Unknown Rx solution vancomycin 1.5 gram intravenous 1.5 g IV Q12H 37 days 10/16/24 Unknown Rx solution doxycycline hyclate 100 mg capsule 100 mg PO BID 2 weeks #28 caps 01/08/25 Unknown Rx hydrocodone-acetaminophen 5-325mg 1 tab PO Q6H PRN PRN Pain 3 days 05/23/25 Unknown Rx 5mg-325mg #10 TABLETS Allergy/AdvReac Type Severity Reaction Status Date / Time ampicillin Allergy Unknown Verified 05/23/25 17:05 peanut Allergy NEEDS Verified 05/23/25 17:05 FOLLOW-UP Penicillins Allergy Unknown Verified 05/23/25 17:05 Family History Mother Heart disease Diabetes Father Heart disease Cancer Surgical History History of amputation of toe History of wisdom tooth extraction Social History housing: apartment Smoking Status: Former smoker how long ago did patient quit smokin alcohol intake: never substance use type: does not use caffeine: Yes ROS ROS ED Constitutional Constitutional ED: Denies chills or fever(s) Eyes Eyes: Denies blurry vision or change in vision ENT ENT ED: Denies rhinorrhea or sore throat Cardiovascular Cardiovascular: Denies chest pain or palpitations Respiratory/Chest Respiratory/Chest: Denies cough or dyspnea Gastrointestinal Gastrointestinal: Denies nausea or vomiting Genitourinary Genitourinary ED: Denies dysuria or hematuria Musculoskeletal Musculoskeletal: Denies back pain or neck pain Integumentary Denies abscess or rash Neurologic Neurologic: Denies headache(s) or weakness Allergic/Immunologic Allergic/Immunologic ED: Denies mouth swelling or urticaria EXAM Physical Exam Const Vital Signs: 05/23/25 16:58 05/23/25 19:00 Temperature 97.9 F Temperature Source Oral Pulse Rate 77 76 Respiratory Rate 16 18 Blood Pressure 140/66 H 156/72 H Blood Pressure Mean 90 100 Pulse Ox 98 95 Oxygen Delivery Method Room Air Room Air Positive well nourished and well developed General Appearance ED: well developed and NAD HEENT Reports moist mucous membranes normocephalic and atraumatic Neck full ROM and supple Extremity Extremity Narrative: There is tenderness over the left hip, thigh, and knee. There is no obvious deformity noted. Range of motion was limited in all motions of the left hip and left knee secondary to pain. There is minimal pain with internal and external rotation of the left lower extremity. Sensation was intact to light touch bilateral lower extremities. Strength is 5/5 bilaterally in the lower extremities. Neuro oriented x3, CN's II-XII intact bilaterally, moves all extremities and no sensory deficits noted Sensorium / Orientation: alert Motor Exam: strength 5/5 throughout Psych mental status grossly normal MDM MDM MDM Narrative Medical decision making narrative: Differential diagnosis includes fracture, strain, and contusion. X-rays of the left hip and left knee will be obtained to assess for fracture. Radiography Diagnostic Testing: Clinical Impression(s) from Imaging Studies Hip/Pelvis X-Ray 05/23/25 17:28 IMPRESSION: No evidence of acute fracture or dislocation. Reading Location: [facility] Knee X-Ray 05/23/25 17:28 IMPRESSION: No acute fracture or dislocation. Moderate tricompartmental degenerative arthrosis. Reading Location: [facility] X-rays of the left hip were obtained. There are 4 views. On my independent interpretation, there is no acute fracture or dislocation noted. There are some mild degenerative changes noted. Radiologist also interpreted the x-rays and agrees. X-rays of the left knee were obtained. There are 4 views. On my independent interpretation, there is no acute fracture. There are some degenerative changes noted. There is no effusion noted. Radiologist also interpreted the x-rays and agrees. Treatment and Re-Evaluation Narrative: Patient was given a dose of morphine. Patient was advised of his findings. Patient was ambulated with a walker. Patient was able to ambulate without difficulty with a walker. Patient states he has a walker at home. Patient was instructed to use this as needed. Patient was given a prescription for a short course of [place]. Patient was instructed to use ice to the area. Patient was instructed to follow-up with his primary care physician in 5 to 7 days. Patient understood and was agreeable with the plan. All questions were answered. Discharge Plan Triage Chief Complaint: Lower Extremity Injury ED Provider: Saqib Corey Dx/Rx/DC Orders Clinical Impression: Contusion of left hip and thigh, Contusion of left knee, initial encounter, Fall Instructions: ED Hip Contusion, ED Knee Sprain Prescriptions: New hydrocodone-acetaminophen 5-325 mg tablet 1 tab PO Q6H PRN PRN (Reason: Pain) 3 Days Qty: 10 0RF No Action insulin glargine U-300 conc [Toujeo Max U-300 SoloStar] 300 unit/mL (3 mL) insulin pen 25 unit subcut QHS Patient Comments: pt states he is out of Toujeo and unsure when he last had any (DME) OneTouch Ultra Test Strip See Rx Instructions .ROUTE .MEDSUPPLY Qty: 10 Patient Comments: Test blood sugar once daily. Rx Instructions: As directed metformin 1,000 MG tablet 1,000 mg PO BIDCM losartan 100 MG tablet 100 mg PO QHS amlodipine 5 MG tablet 5 mg PO QHS [id number] 1 EACH tablet 1 tablet PO DAILY apixaban 5 mg tablet 5 mg PO BID gabapentin 800 mg tablet 800 mg PO .COMPLEX PRN (Reason: neuropathy) Rx Instructions: 800 mg orally 3-4 times daily PRN; (DME) pen needle, diabetic 32 gauge x 5/32 needle See Rx Instructions .Route Qty: 1200 0RF Rx Instructions: As directed metoprolol tartrate 50 mg tablet 50 mg PO BID meropenem 1 gram Recon Soln 1 g IV Q8 37 Days Qty: 111 0RF Rx Instructions: Dx: foot osteomyelitis. Stop date 11/22/24. Weekly bmp, cbc, LFT, esr, and vanc trough. Fax to [phone]. Routine picc care per protocol. vancomycin 1.5 gram recon soln 1.5 g IV Q12H 37 Days Rx Instructions: Dx: foot osteomyelitis. Stop date 11/22/24. Weekly bmp, cbc, LFT, esr, and vanc trough. Fax to [phone]. Routine picc care per protocol. acetaminophen 325 mg Tablet 650 mg PO Q6H PRN PRN (Reason: Pain 1-10 Or Fever >100.7) Qty: 0 0RF doxycycline hyclate 100 mg capsule 100 mg PO BID 14 Days Qty: 28 0RF Primary Care Provider: Bernabe Reese Referrals: Bernabe Reese MD [Primary Care Provider, Family Practice] - 5-7 Days Print Language: Turkish Disposition Disposition: Home, Self Care
--- NOTE | 2025-05-23 17:28 | RAD_ITS ---
PROCEDURE: HIP, UNI W/ PELVIS 2-3 VIEWS 05/23/2025 REASON FOR EXAM: INJURY/PAIN TECHNIQUE: Procedure Code: RAD Modality: DX Procedure: HIP, UNI W/ PELVIS 2-3 VIEWS Laterality: Left COMPARISON: None. FINDINGS: No evidence of acute fracture or dislocation. Bilateral hip joints are intact with minimal degenerative arthrosis. Degenerative changes of the lower lumbosacral spine. Grossly unremarkable soft tissues. Nonspecific radiopaque object projecting over the left hemipelvis. RAD/HIP, UNI W/ Pelvis 2-3 Views IMPRESSION: No evidence of acute fracture or dislocation. Reading Location: [id number]
--- NOTE | 2025-05-23 17:28 | RAD_ITS ---
PROCEDURE: KNEE 4 OR MORE VIEWS 05/23/2025 REASON FOR EXAM: INJURY/PAIN TECHNIQUE: Procedure Code: RADKN Modality: DX Procedure: KNEE 4 OR MORE VIEWS Laterality: Left COMPARISON: None. FINDINGS: No acute fracture or dislocation appreciated. Moderate tricompartmental degenerative arthrosis with predominantly medial joint space narrowing, subchondral sclerosis, and marginal osteophytosis and enthesopathic spurring. No significant joint effusion or soft tissue swelling appreciated. RAD/Knee 4 or More Views IMPRESSION: No acute fracture or dislocation. Moderate tricompartmental degenerative arthrosis. Reading Location: [id number]
--- OUTSIDE RECORDS SUMMARY | 2025-05-23 18:47 | XMS RPT_ITS | CCD ---
Author Organization [facility] Inform ion Partnership [facility] Care Team Providers Care Hand Stone Polisher Name Role Phone [place] Unavailable Unavailable ENRRIUQEANTHONY Unavailable Unavailable Dr. Bernabe Reese Primary Care Provider [phone] Dr. Bernabe Reese Referring Provider Dr. Gregorio Graham Attending Provider [phone] Abdulaziz INSTRUCTIONAL TECHNOLOGY TEACHER, INSTRUCTIONAL TECHNOLOGY TEACHER-C Amelie Attending Provider Dillan Beach MD Primary Care Provider Dr. Bernabe Reese Primary Care Provider Dr. Bernabe Reese Referring Provider 1([facility])[phone] Stanley INSTRUCTIONAL TECHNOLOGY TEACHER, INSTRUCTIONAL TECHNOLOGY TEACHER-C Bernabe Madison Attending Provider 1([facility])[phone] Dr. Jerrod Mast Attending Provider Dr. Gui Bailey Emergency Provider 1([facility])[phone] Hilda Zimmerman Admit Provider Dr. Hilda Zimmerman Attending Provider [phone] Hilda Zimmerman Other Provider Dr. Gregorio Mccarthy Other Provider Dr. Lawrence Rodriguez Attending Provider Dr. Bernabe Reese Primary Care Provider Dr. Bernabe Reese Referring Provider Dr. Sylvester Thomas Attending Provider 1([facility])[phone] Bernabe Reese Primary Care Provider Dr. Bernabe Reese Referring Provider Dr. Sylvester Thomas Attending Provider Dr. Edward Luevano Emergency Provider Dr. Haily Javier Admit Provider [phone] Dr. Haily Javier Other Provider [phone] Julee Spain Attending Provider Dr. Julee Spain Other Provider Dr. Albert Root Other Provider Dr. Gregorio Mccarthy Other Provider Dr. Bernabe Reese Primary Care Provider Dr. Edward Luevano Emergency Provider Dr. Haily Javier Admit Provider [phone] Haily Javier Other Provider [phone] Julee Spain Attending Provider Dr. Julee Spain Other Provider Dr. Albert Root Other Provider Dr. Gregorio Mccarthy Other Provider Dr. Bernabe Reese Referring Provider Dr. Rocky Edwards Attending Provider Mary Ann STERLING, Dr. Bernabe Mejias Primary Care Provider Dr. Bernabe Reese MD Attending Provider Dr. Bernabe Reese MD Referring Provider Radha DPM, Dr. Navarro Attending Provider Radha CIFUENTES, Dr. Navarro Referring Provider Ivett CIFUENTES, Dr. Price Referring Provider Ivett DPM, Dr. Price Referring Provider Dr. Logan Gifford DO Emergency Provider Tulio STERLING, Dr. Quiros Admit Provider Tulio STERLING, Dr. Quiros Attending Provider PROVIDER, UNKNOWN Attending Unavailable PROVIDER, UNKNOWN Admitting Unavailable Bernabe Reese MD Primary Care Provider Dr. Bernabe Reese MD Primary Care Provider Mary Ann STERLING, Dr. Bernabe Mejias Attending Provider Mary Ann STERLING, Dr. Bernabe Mejias Referring Provider Tulio STERLING, Dr. Quiros Other Provider Danielle MARLEY, Dr. Long Attending Provider Deborah MARLEY, Dr. Preciado Other Provider Trip STERLING, Daniel Other Provider Unavailable Nevaeh STERLING, Dr. Mullins Other Provider [phone] Triny STERLING, Elizabeth Other Provider Unavailable Dr. Najma Butler DO Other Provider Teresa STERLING, Dr. Jiménez Other Provider Daniel STERLING, Dr. Rosen Other Provider Mark STERLING, Dr. Sanchez Other Provider Thomas STERLING, Dr. Grimaldo Other Provider [phone] Dr. Remberto Joshi MD Other Provider Abdoul STERLING, Dr. Wood Other Provider Helga Loo MD Other Provider Lexie STERLING, Dr. Hamm Other Provider Roel STERLING, Dr. Gustafson Other Provider Trina STERLING, Dr. Caballero Other Provider Giuliana STERLING, Dr. Aishwarya Brown Other Provider [phone] Neeraj STERLING, Dr. Elizalde Other Provider Alexandra [...] Naomi STERLING, Dr. Pereira Referring Provider Klever Shea MD, Dr. Pereira Attending Provider Klever Shea MD, Dr. Pereira Referring Provider Unavailjuarez Reese MD, Dr. Bernabe Mejias Primary Care Provider Radha DPM, Dr. Navarro Attending Provider Radha DPM, Dr. Navarro Referring Provider Ivett KEMPM, Dr. Price Referring Provider Ирина MARLEY, Dr. Ford Emergency Provider [phone] Tulio STERLING, Dr. Quiros Admit Provider Tulio STERLING, Dr. Quiros Other Provider Dr. Haily Javier DO Attending Provider Deborah MARLEY, Dr. Preciado Other Provider Trip STERLING, Daniel Other Provider Unavailable Nevaeh STERLING, Dr. Mullins Other Provider Elizabeth Agosto MD Other Provider Unavailable Dr. [...] Provider Ivett KEMPM, Dr. Price Other Provider Dr. Ozzy Cabrera DO Attending Provider [phone] Chapo STERLING, Dr. Benton Attending Provider Rima STERLING, Dr. Singh Referring Provider Dr. Haily Javier DO Other Provider Dr. Kelli Shea MD Attending Provider Unavailjuarez Shea MD, Dr. Pereira Referring Provider Klever Shea MD, Dr. Pereira Attending Provider Klever Shea MD, Dr. Pereira Referring Provider Unavailjuarez Cavazos MD, Dr. Canelo Pizarro Attending Provider DILLAN GUZMAN Admitting Unavailable CONSULT, SURGERY - NEURO Consulting Unavail able ELIZABETH AGOSTO Attending Unavailable HAILY JAVIER Referring Unavailable Mary Ann STERLING, Bernabe Mejias Primary Care Provider Kelli Shea MD Unavailable Mary Ann STERLING, Dr. Bernabe Mejias Primary Care Provider Radha DPM, Dr. Navarro Attending Provider Macy STERLING, Dr. Canelo Pizarro Other Provider Prashant DPM, Dr. Traore Attending Provider Mary Ann STERLING, Dr. Bernabe Mejias Primary Care Provider Radha DPM, Dr. Navarro Attending Provider [phone] Ivett DPM, Dr. Price Referring Provider Macy STERLING, Dr. Canelo Pizarro Attending Provider Macy STERLING, Dr. Canelo Pizarro Other Provider Prashant DPM, Dr. Traore Attending Provider Mary Ann STERLING, Dr. Bernabe Mejias Primary Care Physician Naomi STERLING, Dr. Pereira Attending Physician Unavail nay Shea MD, Dr. Pereira Attending Physician Unavail able Ivett CIFUENTES, Dr. Price Referring Provider Macy STERLING, Dr. Canelo Pizarro Attending Physician Naomi STERLING, Dr. Pereira Referring Provider Unavaila [facility] Macy STERLING, Dr. Canelo Pizarro Nurse Practitioner Prashant KEMPM, Dr. Traore Attending Physician Mary Ann STERLING, Dr. Bernaeb Mejias Primary Care Physician Naomi STERLING, Dr. Pereira Attending Physician Unavail STEF Santacruz Attending Unavailable KELLI SHEA Referring Unavailable BERNABE REESE Primary Care Unavailable Chetan Cowan Attending Unavailable Francisco Abarca Referring Unavailable Bernabe Reese Primary Care Unavailable Bernabe Reese Primary Care Unavailable Albert Root Referring Unavailable Ramon Garcia Attending Unavailable Bernabe Reese Primary Care Unavailable Kelli Morris Attending Unavailable Kelli Morris Referring Unavailable Bernabe Reese Primary Care Unavailable Kelli Morris Attending Unavailable Schinner, Bernabe E Primary Care Unavailable Gudla CHERYL, Kelli Attending Unavailable Schinner, Bernabe E Primary Care Unavailable Albert Root Referring Unavailable León Cerda Attending Unavailable Schinner, Bernabe E Primary Care Unavailable Brett Sheayothi Attending Unavailable Gudla, Kelli Referring Unavailable Schinner, Bernabe E Primary Care Unavailable Gudla CHERYL Kelli Attending Unavailable Paulettea CHERYL, Kelli Referring Unavailable Albert Root Consulting Unavailable Chula Antunez Admitting Unavailable Ozzy Cabrera Attending Unavailable Schinner, Bernabe E Primary Care Unavailable Chula Antunez Consulting Unavailable Ozzy Cabrera Consulting Unavailable Schinner, Bernabe E Primary Care Unavailable Gudla CHERYL, Kelli Referring Unavailable Njdla CHERYL, Kelli Attending Unavailable Ramon Garcia Attending Unavailable Ramon Garcia Referring Unavailable Schinner, Bernabe E Primary Care Unavailable Gudla OLS, Kelli Referring Unavailable Schinner, Bernabe E Primary Care Unavailable Gudla Brett LUNAyothi Attending Unavailable Schinner, Bernabe E Primary Care Unavailable Gudla CHERYL, Kelli Attending Unavailable Schinner, Bernabe E Primary Care Unavailable Gudla CHERYL, Kelli Attending Unavailable Schinner, Bernabe E Primary Care Unavailable Gudla CHERYL, Kelli Attending Unavailable Schinner, Bernabe E Primary Care Unavailable Gudla CHERYL, Kelli Attending Unavailable Schinner, Bernabe E Primary Care Unavailable Ivett Albert Referring Unavailable León Cerda Attending Unavailable Schinmarilynn, Bernabe E Primary Care Unavailable Albert Root Referring Unavailable León Cerda Attending Unavailable Schinner, Bernabe E Primary Care Unavailable Schinner, Bernabe E Referring Unavailable Schinner, Bernabe E Attending Unavailable Schinner, Bernabe E Primary Care Unavailable Ramon Garcia Attending Unavailable Ramon Garcia Referring Unavailable Schinner, Bernabe E Primary Care Unavailable Albert Root Referring Unavailable Canelo Cavazos Attending Unavailable Schinner, Bernabe E Primary Care Unavailable Albert Root Referring Unavailable Ramon Garcia Attending Unavailable Schinmarilynn, Bernabe E Primary Care Unavailable Albert Root Referring Unavailable León Cerda Attending Unavailable Schinner, Bernabe E Primary Care Unavailable Ramon Garcia Attending Unavailable Chula Antunez Attending Unavailable Haily Javier Attending Unavailable Gregorio Mccarthy Consulting Unavailable Haily Javier Consulting Unavailable Bernabe Reese Primary Care Unavailable Stanley TA, Bernabe Madison Attending Unavailable Bernabe Reese Referring Unavailable Bernabe Reese Attending Unavailable Bernabe Reese Primary Care Unavailable Bernabe Reese Primary Care Unavailable Kelli Morris Attending Unavailable Haily Javier Attending Unavailable Chula Antunez Consulting Unavailable Chula Antunez Admitting Unavailable Bernabe Reese Primary Care Unavailable Ozzy Cabrera Consulting Unavailable Daniel Dominique Consulting Unavailable Harpreet Herring Consulting Unavailable Elizabeth Agosto Consulting Unavailable Najma Butler Consulting Unavailable Jessy Moore Consulting Unavailable Silas Sanchez Consulting Unavailable Laura Flores Consulting Unavailable Dillan Guzman Consulting Unavailable Remberto Joshi Consulting Unavailable Israel Schreiber Consulting Unavailable Helga Loo Consulting Unavailable Hansel Owen Consulting Unavailable Janay Sevilla Consulting Unavailable Ada Mena Consulting Unavailable Aishwarya Giordano Consulting UnavailTonio Ureña Consulting Unavailable Rakesh Morris Consulting Unavailable James Garcia Consulting Unavailable Marita Spain Consulting Unavailable Christine Ross Consulting Unavailable Gregorio Mccarthy Consulting Unavailable Albert Root Consulting Unavailable Allergies Allergy Classification Reported Allergen(s) Allergy Type Date of Onset Reaction(s) Facility (20 sources) Ampicillin; Translations: [AMPICILLIN] Drug Allergy 7 [facility] (20 sources) peanut allergenic extract; Translations: [PEANUT] Drug Allergy 1 Other, NEEDS FOLLOW-UP [facility] Comment on above: PEANUT BUTTER (3 sources) Peanut butter Allergy to substance 1 Other [facility] Work Phone: (20 sources) Penicillins; Translations: [PENICILLINS] Allergy to substance 7 Unknown [facility] (1 source) Ampicillin Drug Allergy 5 [facility] Repository (1 source) peanut allergenic extract Drug Allergy 5 [facility] Repository Medications Current Medications Medication Drug Class(es) Dates Sig (Normalized) Sig (Original) acetaminophen 325 mg oral tablet (20 sources) Start: 10-16-2024 Start: 07-11-2023 End: 10-16-2024 take 2 tablets by mouth three times daily Acetaminophen (Tylenol Extra Strength) 500 mg tablet Discontinued 1000 mg PO THREE TIMES A DAY July 11, 2023 1:00am October 16, 2024 11:20am Start: 12-03-2020 take 500 mg by mouth every six hours Acetaminophen Active 500 MG PO EVERY 6 HOURS December 03, 2020 12:00am take 2 tablets by mo [facility] every eight hours as needed acetaminophen (TYLENOL EXTRA STRENGTH) 500 mg tablet Take 1,000 mg by mouth every 8 hours as needed. Active Comment on above: Take 1,000 mg by maria g every 8 hours as needed. amLODIPine 10 mg oral tablet (20 sources) Dihydropyridine Calcium Channel Rosie Start: 10-29-2024 Start: 02-18-2017 End: 10-30-2024 take 1 tablet by mouth at bedtime Comment on above: 1 tablet once daily. apixaban 5 mg oral tablet (20 sources) Factor Xa Inhibitor Start: 11-06-2024 Start: 10-02-2020 End: 10-30-2024 take 1 tablet by mouth twice daily Apixaban 5 mg tablet Discontinued 5 mg PO TWICE A DAY 180 March 12, 2022 10:40am November 29, 2022 2:40pm aspirin 81 mg chewable tablet (20 sources) Platelet Aggregation Inhibitor, Nonsteroidal Anti-inflammatory Drug Start: 10-24-2024 End: 11-06-2024 Start: 07-11-2023 End: 2024 take 1 tablet by mouth once daily Aspirin 325 mg tablet Discontinued 325 mg PO DAILY July 11, 2023 1:00am 2024 2:01pm Start: 12-03-2020 End: 03-12-2022 take 1 tablet by mouth once daily Aspirin 81 mg Tablet,Chewable Discontinued 81 mg PO DAILY December 03, 2020 12:00am March 12, 2022 10:10am take 1 tablet by maria g once daily aspirin, enteric coated (ASPIRIN, ENTERIC COATED) 81 mg EC tablet Take 81 mg by mouth once daily. Active Comment on above: Take 81 mg [...] 10-18-2024 End: 10-21-2024 Start: 10-17-2024 End: 10-18-2024 doxycycline hyclate 100 mg oral capsule (7 sources) Tetracycline-class Drug Start: 01-08-2025 take 1 capsule b y mouth twice daily Drug or medicament (substance) (4 sources) Start: 10-30-2024 Start: 10-28-2024 End: 11-22-2024 take 750 mg intravenously every twelve hours fluconazole 200 mg oral tabl et (2 sources) Azole Antifungal Start: 10-22-2024 End: 11-29-2024 furosemide 20 mg oral tablet (20 sources) Loop Diuretic Start: 10-22-2024 End: 10-30-2024 Start: 10-17-2024 End: 10-19-2024 Start: 10-17-2024 End: 10-17-2024 Start: 05-23-2023 End: 09-25-2024 take 1 tablet by mouth once daily Furosemide (Lasix) 40 mg tablet Discontinued 40 mg PO DAILY 19 07May 23, 2023 1:00am September 25, 2024 9:40am glimepiride 4 mg oral tablet (2 sources) Sulfonylurea Start: 02-18-2017 glimepiride (A MARYL) 4 mg tablet 1 tablet once daily. 02/18/2017 Active Comment on above: 1 tablet once daily. 1.5 ml insulin glargine 300 unt/ml pen injector (20 sources) Insulin Analog Start: 10-30-2024 Start: 09-27-2022 Start: 09-27-2022 Insulin Glargi ne U-300 Conc [...] September 27, 2022 9:05am Start: 11-07-2020 End: 03-12-2022 Insulin Glargine U-300 Conc (Toujeo Max U-300 Solostar) 300 unit/mL (3 mL) insulin pen Discontinued 30 U SC DAILY November 07, 2020 12:00am March 12, 2022 10:10am Start: 11-07-2020 End: 09-27-2022 Insulin Glargine U-300 Conc (Toujeo Max U-300 Solostar) 300 unit/mL (3 mL) insulin pen (5 sources) Start: 09-27-2022 Insulin Glargi ne U-300 Conc (Toujeo Max U-300 Solostar) 300 unit/mL (3 mL) insulin pen Active 25 U SC AT BEDTIME September 27, 2022 9:04am diabetes Start: 09-27-2022 Insulin Glargi ne U-300 Conc (Toujeo Max U-300 Solostar) 300 unit/mL (3 mL) insulin pen Active 25 U SC AT BEDTIME September 27, 2022 9:04am 3 ml insulin lispro 100 unt/ ml pen injector (1 source) Insulin Analog Start: 10-30-2024 isopropyl alcohol 0.7 ml/ml medicated pad (1 source) Start: 10-30-2024 losartan potassium 50 mg ora l tablet (20 sources) Angiotensin 2 Receptor Rosie Start: 10-24-2024 End: 10-30-2024 Start: 10-23-2024 End: 10-23-2024 Start: 04-04-2014 End: 10-28-2024 take 1 tablet by mouth at bedtime Comment on above: 1 tablet once daily. meloxicam 15 mg oral tablet (2 sources) Nonsteroidal Anti-inflammatory Drug Start: 03-09-20 17 meloxicam (MOBIC) 15 mg tablet 1 tablet once daily. 03/09/2017 Active Comment on above: 1 tablet once daily. meropenem 1000 mg injection (10 sources) Penem Antibacterial Start: 10-17-19 25 metFORMIN hydrochloride 1000 mg oral tablet (20 sources) Biguanide Start: 04-04-20 14 take 1 tablet by mouth twice daily at mealtime Comment on above: 1 tablet twice daily . Jpsfwxcu-Qca-Mi-Lycope n-Lutein (7 sources) Start: 10-02-19 21 take 1 tablet by mouth once daily Nsolgzez-Xju-Sa-L ycopen-Lutein Active 1 TABLET PO DAILY October 01, 2020 7:30pm Start: 10-01-2020 take 1 tablet by maria g th once daily Ivvmvjwa-Dmc-Sq-Lycopen-Lutein Active 1 TABLET PO DAILY September 30, 2020 11:00pm Start: 10-01-2020 take 1 tablet by maria g th once daily Brweioya-Lwx-Lb-Lycopen-Lutein Active 1 TABLET PO DAILY October 01, 2020 12:00am Vt-Vde-Gbpka-N3-Unflnxh-Ndhs in (3 sources) Start: 10-01-2020 take 1 tablet by mouth once daily Mc-Odi-Hbfqw-W7-Cytwxds-Egwdva Active 1 TABLET PO DAILY September 30, 2020 11:00pm Start: 10-01-2020 take 1 tablet by maria g th once daily Zk-Kdi-Okhcv-B7-Aynfziq-Kzepnj Active 1 TABLET PO DAILY October 01, 2020 12:00am Re-Eoo-Xkved-F5-Udekbio-Acay in 1 EACH tablet (11 sources) Start: 10-01-2020 take 1 tablet by mouth once daily Start: 10-01-2020 take 1 tablet by maria g th once daily Hd-Dnv-Vggsj-I0-Qobhdxe-Fuhfxa 1 EACH ta blet Active 1 {tbl} PO DAILY October 01, 2020 12:00am supplemetn Start: 04-14-2021 take 1 tablet by maria g th once daily Al-Zsk-Aifld-A9-Bmyiqyl-Ypxujp 1 EACH ta blet Active 1 {tbl} PO DAILY October 01, 2020 12:00am Pen Needle, Diabetic (2 sources) Start: 05-23-2023 Pen Needle, Di abetic Active 0 .Route 1200 May 23, 2023 1:00am As directed Start: 05-23-2023 Pen Needle, Di abetic Active 0 .Route 1200 May 23, 2023 12:00am As directed pioglitazone 45 mg oral tablet (2 sources) Peroxisome Proliferator Receptor alpha Agonist, Peroxisome Proliferator Receptor gamma Agonist, Thiazolidinedione Start: 03-12-2017 pioglitazone (ACTOS) 45 mg tablet 1 tablet once daily. 03/12/2017 Active Comment on above: 1 tablet once daily. polyethylene glycol 3350 57427 mg powder for oral solution (3 sources) Osmotic Laxative Start: 10-18-2024 End: 10-30-2024 sennosides, alf 8.6 mg oral tablet (3 sources) Start: [...] mg / pioglitazone 30 mg oral tablet (20 sources) Peroxisome Proliferator Receptor alpha Agonist, Peroxisome Proliferator Receptor gamma Agonist, Thiazolidinedione Start: 04-04-2014 End: 09-17-2014 Alogliptin-Piogli tazone (Oseni 25-30 Mg Tablet) 1 EACH tablet Discontinued 25 - 30 mg DAILY April 04, 2014 12:00am September 17, 2014 8:43am Start: 04-04-2014 End: 09-17-2014 amoxicillin 875 mg / clavulanate 125 mg oral tablet (11 sources) Penicillin-class Antibacterial Start: 2024 End: 10-16-2024 Amoxicillin-Pot Clavulanate 875-125 mg tablet Discontinued 1 {tbl} PO TWICE A DAY 2024 12:00am October 16, 2024 9:25am Start: 2024 End: 10-16-2024 bisacodyl 10 mg rectal suppo sitory (2 sources) Stimulant Laxative Start: 10-19-2024 End: 10-30-2024 Start: 10-18-2024 End: 10-18-2024 cephalexin 500 mg oral capsule (20 sources) Cephalosporin Antibacterial Start: 12-03-2022 End: 03-24-2023 take 1 capsule by mouth three times daily Cephalexin 500 mg capsule Discontinued 500 mg PO THREE TIMES A DAY 18 0 December 03, 2022 12:00am March 24, 2023 10:59am Start: 12-09-2020 End: 05-13-2021 take 1 capsule by mouth three times daily Cephalexin 500 mg capsule Discontinued 500 mg PO THREE TIMES A DAY 110 0 December 09, 2020 12:00am May 13, 2021 11:17am clindamycin 300 mg oral capsule (15 sources) Lincosamide Antibacterial Start: 05-23-2023 End: 06-01-2023 take 3 capsules by mouth every eight hours Clindamycin Hcl (Cleocin Hcl) 300 mg capsule Discontinued 900 mg PO Q8H 72 0 May 23, 2023 1:00am May 31, 2023 1:00am June 01, 2023 1:05am diphenhydrAMINE hydrochloride 25 mg oral capsule (20 sources) Histamine-1 Receptor Antagonist Start: 04-04-2014 End: 09-17-2014 take 2 capsules by mouth three times daily as needed Diphenhydramine Hcl (Benadryl) 25 MG capsule Discontinued 50 mg PO 3 TIMES DAILY NEEDED April 04, 2014 12:00am September 17, 2014 8:43am 0.3 ml enoxaparin sodium 100 mg/ml prefilled syringe (3 sources) Low Molecular Weight Heparin Start: 10-21-2024 End: 10-30-2024 Start: 10-19-2024 End: 10-21-2024 Start: 10-18-2024 End: 10-19-2024 ferrous sulfate 325 mg oral tablet (20 sources) Start: 03-12-2022 End: 05-21-2023 take 1 tablet by mouth once daily Ferrous Sulfate (Ferosul) 325 mg (65 mg iron) tablet Discontinued 325 mg PO DAILY March 12, 2022 12:00am May 21, 2023 4:55pm Check with primary doctor gabapentin 400 mg oral capsule (20 sources) Anti-epileptic Agent Start: 10-25-2024 End: 10-30-2024 Start: 10-21-2024 End: 10-25-2024 Start: 10-17-2024 End: 10-21-2024 Start: 11-29-2022 take 1 tablet by maria g th three to four times daily as needed Start: 11-29-2022 take 1 tablet by maria [...] 27, 2022 12:00am Start: 03-12-2022 End: 09-27-2022 take 1 capsule by mouth three times daily Gabapentin 400 mg capsule Discontinued 400 mg PO THREE TIMES A DAY March 12, 2022 12:00am September 27, 2022 9:04am Start: 10-01-2020 End: 03-12-2022 take 1 capsule by mouth twice daily Gabapentin 300 mg capsule Discontinued 300 mg PO TWICE A DAY May 13, 2021 11:17am March 12, 2022 10:08am neuropathy Start: 02-18-2017 gabapentin (NE URONTIN) 300 mg capsule 1 capsule three times daily. 02/18/2017 Active Comment on above: 1 capsule three time s daily. hydrALAZINE hydrochloride 25 mg oral tablet (1 source) Arteriolar Vasodilator Start: 10-18-19 End: 10-19-19 hydrOXYzine hydrochloride 25 mg oral tablet (1 source) Antihistamine Start: 10-25-19 End: 10-31-19 5 ml levETIRAcetam 100 mg/ml injection (1 source) Start: 10-17-19 End: 10-17-19 lidocaine hydrochloride 0.02 mg/mg topical gel (1 source) Antiarrhythmic, Amide Local Anesthetic Start: 10-18-19 End: 10-18-19 linezolid 600 mg oral tablet (20 sources) Oxazolidinone Antibacterial Start: 12-10-19 End: 05-13-20 take 1 tablet by mouth every twelve hours Linezolid 600 mg tablet Discontinued 600 mg PO Q12H 20 10 0 December 09, 2020 12:00am May 13, 2021 11:16am 50 ml magnesium sulfate 80 mg/ml injection (1 source) Start: 10-17-19 End: 10-23-19 metoprolol tartrate 25 mg oral tablet (20 sources) beta-Adrenergic Rosie Start: 10-17-19 End: 10-18-19 Start: 10-16-2024 End: 10-16-2024 Start: 12-03-2020 End: 2024 take 1 tablet by mouth every twenty-four hours at bedtime Metoprolol Succinate (Toprol Xl) 100 mg Tablet Extended Release 24 Hr Discontinued 100 mg PO AT BEDTIME December 03, 2020 12:00am 2024 1:09pm Check with primary doctor Start: 12-03-2020 take 1 tablet by maria g once daily Metoprolol Succinate (Toprol Xl) 100 mg Tablet Extended Release 24 Hr Active 100 MG PO DAILY December 03, 2020 5:00pm Start: 10-01-2020 End: 10-02-2020 take 1 tablet by mouth once daily Metoprolol Succinate 25 MG tablet extended release 24 hr Discontinued 25 mg PO DAILY October 01, 2020 12:00am October 02, 2020 1:40pm heart Start: 02-18-2017 End: 10-28-2024 take 1 tablet by mouth twice daily Comment on above: 1 tablet twice daily . metroNIDAZOLE 500 mg oral tablet (20 sources) Nitroimidazole Antimicrobial Start: 12-10-19 End: 05-13-20 take 1 tablet by mouth three times daily Metronidazole (Flagyl) 500 mg tablet Discontinued 500 mg PO THREE TIMES A DAY 110 0 December 09, 2020 12:00am May 13, 2021 11:16am 200 ml niCARdipine hydrochloride 0.2 mg/ml injection (1 source) Dihydropyridine Calcium Channel Rosie Start: 10-17-19 End: 10-18-19 nystatin 839304 unt/ml / triamcinolone acetonide 1 mg/ml topical cream (20 sources) Polyene Antifungal, Corticosteroid Start: 04-04-20 14 End: 09-18-19 15 Nystatin-Triamcinolo ne 1 APPLIC Tube Discontinued 1 NMA TOPICAL THREE TIMES A DAY April 04, 2014 12:00am September 17, 2014 8:42am Start: 04-04-2014 End: 09-17-2014 Start: 04-04-2014 End: 09-17-2014 Nystatin-Triamcinolone Disco ntinued 1 APPLIC TOPICAL THREE TIMES A DAY April 04, 2014 12:00am September 17, 2014 8:42am rivaroxaban 20 mg oral tablet (20 sources) Factor Xa Inhibitor Start: 05-13-2021 End: 05-13-2021 take 1 tablet by mouth once daily at dinner Rivaroxaban (Xarelto) 20 mg tablet Discontinued 20 mg PO DAILY 30 May 13, 2021 1:00am May 13, 2021 11:59am must administer with evening meal rosuvastatin calcium 10 mg oral tablet (14 sources) HMG-CoA Reductase Inhibitor Start: 03-24-2023 End: 05-21-2023 take 1 tablet by mouth once daily Rosuvastatin 10 mg tablet Discontinued 10 mg PO DAILY March 24, 2023 12:00am May 21, 2023 4:56pm Start: 03-24-2023 End: 05-21-2023 take 1 tablet by mouth once daily Rosuvastatin 10 mg tablet Discontinued 10 mg PO DAILY March 24, 2023 12:00am May 21, 2023 4:56pm 500 ml sodium chloride 30 mg /ml injection (8 sources) Start: 10-17-2024 End: 10-18-2024 Start: 10-16-2024 End: 10-23-2024 Start: 10-16-2024 End: 10-30-2024 Start: 10-16-2024 End: 10-16-2024 Start: 10-16-2024 End: 10-16-2024 tadalafil 20 mg oral tablet (20 sources) Phosphodiesterase 5 Inhibitor Start: 04-04-2014 End: 04-04-2014 take 1 tablet by mouth once daily Tadalafil (Cialis) 20 MG tablet Discontinued 20 mg PO DAILY April 04, 2014 12:00am April 04, 2014 9:07am Testosterone (20 sources) Androgen Start: 04-04-2014 End: 04-04-2014 Testosterone [...] 9:07am 200 ml vancomycin 5 mg/ml injection (11 sources) Glycopeptide Antibacterial Start: 10-19-2024 End: 10-20-2024 take 1000 mg intravenously every twelve hours Start: 10-16-2024 vitamin b6 100 mg oral tablet (20 sources) Start: 03-21-2017 End: 03-12-2022 take 1 tablet by mouth once daily Pyridoxine (Vitamin B6) (Vitamin B-6) 100 mg Tablet Discontinued 100 mg PO DAILY December 03, 2020 12:00am March 12, 2022 10:09am Comment on above: Take 1 tablet by mouth once daily. (1 source) Start: 10-28-2024 End: 10-30-2024 inject 28 [IU] by subcutaneous injection every twenty-four hours (20 sources) Start: 10-22-2024 End: 10-30-2024 [Order 1 [...] at 0825, Until Specified, Who to Notify: Body Worker, Call Body Worker if a.m. Glucose is less than 80 [...] glucose is greater than 200md/dl, then notify Body Worker. [Order 3 End] [Order 4 Start] Name: [...] 50% needed, contact pharmacy or obtain from [facility] ++ [Order 6 End] [Order 7 [...] at 0825, Until Specified, Who to Notify: Body Worker, For all Blood Glucose LESS THAN 80 mg/dl, notify Body Worker after treatment per Hypoglycemia in Non- Adults [...] Translations: [Intracranial hemorrhage] Onset: 10-16-2024 10-30-2024 Chronic Cardiac dysrhythmias (20 sources) Atrial fibrillation; Translations: [Unspecified atrial fibrillation] Onset: 10-01-2020 Chronic Chronic ulcer of skin (20 sources) Chronic ulcer of foot; Translations: [Non-pressure 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] Onset: 10-15-2024 12-16-2020 Chronic Deficiency and other anemia (20 sources) Iron deficiency anemia; Translations: [Iron deficiency anemia, unspecified] 03-09-2022 Episodic Deficiency and other anemia (3 sources) Iron deficiency anemia, unspecified; Translations: [Iron deficiency anemia, unspecified] Onset: 10-15-2024 Episodic Diabetes mellitus with complications (20 sources) [...] Translations: [Type 2 diabetes mellitus without complications] Onset: 03-22-2025 12-07-2020 Chronic Diseases of white blood cells (20 sources) Leukocytosis; Translations: [Elevated white blood cell count, unspecified] Onset: 10-16-2024 11-28-2022 Chronic Disorders of lipid metabolism (20 sources) Hyperlipidemia; Translations: [Hyperlipidemia, unspecified] Onset: 03-20-2025 Chronic E Codes: Fall (18 sources) Fall; Translations: [Unspecified fall, initial encounter] 11-28-2022 Episodic Essential hypertension (20 sources) Essential hypertension; Translations: [Essential (primary) hypertension] Onset: 03-22-2025 Chronic Comment on above: CONTROLLED WITH MED Fluid and electrolyte disorders (11 sources) Lactic acidosis; Translations: [Lactic acidosis] 2024 Episodic Fracture of lower limb (20 sources) Fracture of foot ; Translations: [Unspecified fracture of left foot, initial encounter for closed fracture] 12-07-2020 Episodic Genitourinary symptoms and ill-defined conditions (20 sources) Dysuria; Translations: [Dysuria] Onset: 03-12-2025 05-21-2023 Episodic Infective arthritis and osteomyelitis (except that caused by tuberculosis or sexually transmitted disease) (20 sources) Osteomyelitis; Translations: [Osteomyelitis, unspecified] Onset: 10-16-2024 12-07-2020 Chronic Late effects of cerebrovascular disease (2 sources) 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; Translations: [Other sequelae of nontraumatic intracerebral hemorrhage] Onset: 03-22-2025 Chronic Malaise and fatigue (17 sources) Asthenia; Translations: [Weakness] 05-21-2023 Episodic Neoplasms of unspecified nature or uncertain behavior (2 sources) Monoclonal gammopathy of uncertain significance; Translations: [Monoclonal gammopathy] Onset: 03-16-2017 03-16-2017 Chronic Nonspecific chest pain (20 sources) Chest pain; Translations: [Chest pain, unspecified] 09-27-2022 Episodic Osteoarthritis (20 sources) Osteoarthritis of left knee joint; Translations: [Unilateral primary osteoarthritis, left knee] Onset: 03-20-2025 11-28-2022 Chronic Other aftercare (20 sources) Long-term current use of anticoagulant; Translations: [detention (current) use of anticoagulants] 11-28-2022 Episodic Other aftercare (2 sources) detention (current) use of anticoagulants; Translations: [Long-term (current) use of anticoagulants] Onset: 03-20-2025 12-03-2022 Episodic Other aftercare (1 source) Taking high risk medication; Translations: [Other correction (current) drug therapy] 10-22-2024 Episodic Other aftercare (10 sources) Follow-up orthopedic assessment; Translations: [Encounter for other orthopedic aftercare] 12-04-2024 Episodic Other aftercare (3 sources) detention (current) use of insulin; Translations: [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 of insulin] Onset: 10-16-2024 Episodic Other aftercare (2 sources) Other correction (current) drug therapy; Translations: [Other terminal operator (current) drug therapy] Onset: 10-16-2024 Episodic Other aftercare (8 sources) Follow-up status; Translations: [Encounter for other orthopedic aftercare] 12-04-2024 Episodic Other aftercare (1 source) Encounter for other orthopedic aftercare; Translations: [Encounter for other orthopedic aftercare] Onset: 03-20-2025 Episodic Other bone disease and musculoskeletal deformities (13 sources) Acquired absence of other left toe(s); Translations: [History of partial ray amputation of fifth toe of left foot] 12-16-2020 Episodic Other bone disease and musculoskeletal deformities (1 source) Acquired absence of other toe(s), unspecified side; Translations: [Acquired absence of other toe(s), unspecified side] Onset: 03-20-2025 Episodic Other circulatory disease (18 sources) Peripheral vascular disease; Translations: [Other specified peripheral vascular diseases] 09-25-2024 Chronic Other circulatory disease (2 sources) Other specified peripheral vascular diseases; Translations: [Other specified peripheral vascular diseases] Onset: 10-15-2024 Chronic Other diseases of veins and lymphatics (20 sources) Peripheral venous insufficiency; Translations: [Venous insufficiency (chronic) (peripheral)] 05-23-2023 Episodic Other diseases of veins and lymphatics (3 sources) Venous insufficiency (chronic) (peripheral); Translations: [Venous (peripheral) insufficiency, unspecified] Onset: 03-20-2025 05-23-2023 Episodic Other injuries and conditions due to external causes (17 sources) Closed injury of head; Translations: [Unspecified injury of head, initial encounter] 11-28-2022 Episodic Other lower respiratory disease (20 sources) Dyspnea on exertion; Translations: [Dyspnea, unspecified] 10-01-2020 Episodic Other lower respiratory disease (15 sources) Hypoxemia; Translations: [Hypoxemia] 05-21-2023 Episodic Other lower respiratory disease (2 sources) Hypoxemia; Translations: [Hypoxemia] 05-23-2023 Episodic Other lower respiratory disease (1 source) Other forms of dyspnea; Translations: [Other respiratory abnormalities] 07-11-2023 Episodic Other lower respiratory disease (1 source) Dyspnea, unspecified; Translations: [Dyspnea, unspecified] Onset: 03-20-2025 Episodic Other nervous system disorders (20 sources) Neuropathy of lower limb; Translations: [Unspecified mononeuropathy of unspecified lower limb] 12-03-2020 Chronic Other nervous system disorders (2 sources) Polyneuropathy associated with another disorder; Translations: [Polyneuropathy in diseases classified elsewhere] Onset: 03-16-2017 03-16-2017 Chronic Other nutritional; endocrine; and metabolic disorders (20 sources) Morbid obesity; Translations: [Morbid (severe) obesity due to excess calories] 12-03-2020 Chronic Other nutritional; endocrine; and metabolic disorders (20 sources) Alveolar hypoventilation; Translations: [Morbid (severe) obesity with alveolar hypoventilation] 10-02-2020 Chronic Other nutritional; endocrine; and metabolic disorders (3 sources) Body mass index 40+ - severely obese; Translations: [Morbid (severe) obesity due to excess calories] Onset: 03-16-2017 03-16-2017 Chronic Other nutritional; endocrine; and metabolic disorders (4 sources) Morbid (severe) obesity due to excess calories; Translations: [Morbid obesity] Onset: 03-20-2025 05-23-2023 Chronic Other nutritional; endocrine; and metabolic disorders (2 sources) Morbid (severe) obesity with alveolar hypoventilation; Translations: [Obesity hypoventilation syndrome] Onset: 03-20-2025 07-11-2023 Chronic Other nutritional; endocrine; and metabolic disorders (2 sources) Body mass index (BMI) 50.0-59.9, adult; Translations: [Body mass index (BMI) 50.0-59.9, adult] Onset: 10-16-2024 Chronic Other skin disorders (20 sources) Dystrophia unguium; Translations: [Nail dystrophy] 12-07-2020 Episodic Residual codes; unclassified (14 sources) 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; Translations: [Dependence on other enabling machines and devices] 12-21-2024 Chronic Residual codes; unclassified (14 sources) Obstructive sleep apnea syndrome; Translations: [Obstructive sleep apnea (adult) (pediatric)] 12-21-2024 Chronic Residual codes; unclassified (1 source) Dependence on other enabling machines and devices; Translations: [Dependence on other enabling machines and devices] Onset: 03-20-2025 Chronic Residual codes; unclassified (1 source) Obstructive sleep apnea (adult) (pediatric); Translations: [Obstructive sleep apnea (adult) (pediatric)] Onset: 03-20-2025 Chronic Residual codes; unclassified (20 sources) Bilateral lower limb edema; Translations: [Localized edema] 11-06-2020 Episodic Residual codes; unclassified (17 sources) Acute confusion; Translations: [Disorientation, unspecified] 11-28-2022 Episodic Residual codes; unclassified (1 source) Disorientation, unspecified; Translations: [Delirium due to conditions classified elsewhere] 12-03-2022 Episodic Residual codes; unclassified (14 sources) History of clinical finding in subject; Translations: [Personal history of other specified conditions] 12-21-2024 Episodic Comment on above: BILAT LOWER LEGS LEF T GREATER THAN RIGHT Residual codes; unclassified (1 source) Personal history of other specified conditions; Translations: [Personal history of other specified conditions] Onset: 03-20-2025 Episodic Screening and history of mental health and substance abuse codes (15 sources) Ex-smoker; Translations: [Personal history of nicotine dependence] Onset: 03-20-2025 12-21-2024 Episodic Skin and subcutaneous tissue infections (20 sources) Cellulitis and abscess of lower limb; Translations: [Cellulitis of unspecified part of limb] Onset: 03-20-2025 12-03-2020 Episodic Unclassified (5 sources) Localized edema; Translations: [Edema] Onset: 02-10-2018 05-23-2023 Episodic Unclassified (1 source) Unknown / UNK(Unknown) Onset: 11-24-2017 Unclassified (2 sources) Chronic atrial fibrillation, unspecified; Translations: [Chronic atrial fibrillation, unspecified] Onset: 10-16-2024 Urinary tract infections (18 sources) Acute urinary tract infection; Translations: [Urinary tract infection, site not specified] 11-28-2022 Episodic Past or Other Problems Problem Classification Problem Date Documented Da te Episodic/Chronic Bacterial infection; unspecified site (20 sources) Bacteremia caused by Gram-positive bacteria; Translations: [Bacteremia] Onset: 10-16-2024 11-30-2022 Episodic Deficiency and other anemia (2 sources) Anemia; Translations: [Anemia, unspecified] Onset: 03-16-2017 03-16-2017 Episodic Diabetes mellitus without complication (1 source) Diabetes mellitus without complication Onset: 11-24-2017 Other circulatory disease (2 sources) Personal history of other diseases of the circulatory system; Translations: [Personal history of other diseases of the circulatory system] Onset: 02-10-2018 Episodic Other screening for suspected conditions (not mental disorders or infectious disease) (2 sources) Encounter for screening for other disorder; Translations: [Encounter for screening for malignant neoplasm of prostate] Onset: 08-17-2024 Episodic Results Test Name Value Interpretation Reference Range Facility Hemoglobin A1con 04-09-2025 HbA1c (Bld) [Mass fraction] 5.9 % High <=5.6 [facility] Comment on above: Order Comment: 208 Result Comment: Norm al < 5.7 % Prediabetic 5.7 - 6.4 % Diabetic >or= 6.5 % Please note range changes. Performed By: #### L [id number] ####[facility] [address] [place], [address] Bacteria Ur Culton 5 Bacteria identified Cx Nom (U) ORGANISM ID: 1 10,000 -<50,000 CFU/ml Mixed microbiota No further workup Normal [facility] Comment on above: Performed By: #### 6 30-4 #### [facility] CLIA [id number] [address] [place] [address] [place] CNOVon 03-12-2025 CNOV Office Visit (UROLWS) ---- LANI ZARAGOZA ([id number]) 1955 M Date Time Provider Department 03/12/25 4:00 PM STEF HUBBARD URONICK During your visit today, we recorded the following information about you: Elías Hunter LPN 03/25/2025 7:41 PM Signed Verified name and date of . Patient resides at [facility]. , fax: . CC Post Void Residual HPI: Lani aZragoza is a 69 year old male. The patient is here now for an appointment with HOMER Dumont [place], PA-COV. Procedure: Explained procedure to patient and verbalizes understanding. Performed a PVR. Patient urinated and instructed to empty bladder as much as possible just prior to having PVR done using bladder ultrasound scanner. Results of scan: 52 mL The patient tolerated the procedure well. Plan: Appointment with Stef. Stef Hubbard PA-C 03/25/2025 7:41 PM Signed [facility] FOR [facility] NEW PATIENT CLINIC NOTE (M) Note was generated by [email or web address] and edited as appropriate SERVICE DATE: March 12, 2025 NAME: Lani Zaragoza GENDER: male CHIEF COMPLAINT: The patient is a 69-year-old male presenting for evaluation of infrequent voiding and concern for urinary retention. HISTORY OF PRESENT ILLNESS: The patient is a 69-year-old male presenting for evaluation of infrequent voiding and concern for urinary retention. Urinary Retention: - Reports urinating every 6-8 hours during the day. - Denies nocturia; able to sleep through the night without needing to urinate. - Denies urgency or frequency. - Denies feeling of incomplete bladder emptying. - Currently taking Flomax 2 capsules at bedtime. 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 - Reports improvement in urinary function since being able to get out of bed and use the bathroom independently. - Noted weight loss of 40 lbs recently; previously experienced increased urinary frequency when heavier. LABS: No results found for: PSA No results found for: TESTOST No results found for: HCT No results found for: PSA No results found for: CREAT MEDICATIONS: apixaban (ELIQUIS) 5 mg tab(s) Take 5 mg by mouth two times a day. atorvastatin (LIPITOR) 40 mg tablet Take 40 mg by mouth daily at bedtime. carvedilol (COREG) 3.125 mg tablet Take 3.125 mg by mouth two times a day. citalopram hydrobromide (CELEXA) 10 mg tablet Take 10 mg by mouth once daily. Chlorhexidine Gluconate (PERIDEX) 0.12 % solution Use 15 mL as instructed two times a day. Rinse around mouth for 30 seconds then expectorate docusate sodium (COLACE) 100 mg capsule Take 100 mg by mouth once daily. tamsulosin (FLOMAX) 0.4 mg Take 0.8 mg by mouth daily at bedtime. aspirin, enteric coated (ASPIRIN, ENTERIC COATED) 81 mg EC tablet Take 81 mg by mouth once daily. acetaminophen (TYLENOL EXTRA STRENGTH) 500 mg tablet Take 1,000 mg by mouth every 8 hours as needed. (Patient taking differently: Take 650 mg by mouth every 4 hours as needed for fever (specify temp.) or pain.) amLODIPine (NORVASC) 5 mg tablet 1 tablet once daily. (Patient taking differently: Take 10 mg by mouth once daily.) pyridoxine, vitamin B6, (VITAMIN B6) 100 mg tablet Take 1 tablet by mouth once daily. gabapentin (NEURONTIN) 300 mg capsule 1 capsule three times daily. glimepiride (AMARYL) 4 mg tablet 1 tablet once daily. losartan (COZAAR) 100 mg tablet 1 tablet once daily. meloxicam (MOBIC) 15 mg tablet 1 tablet once daily. metFORMIN (GLUCOPHAGE) 1,000 mg tablet 1 tablet twice daily. metoprolol tartrate, short acting, (LOPRESSOR) 50 mg tablet 1 tablet twice daily. pioglitazone (ACTOS) 45 mg tablet 1 tablet once daily. PAST MEDICAL HISTORY: No past medical history on file. PAST SURGICAL HISTORY: PAST SURGICAL HISTORY Procedure Laterality Date PAST SURGICAL HISTORY OF Right Foot surgery due to diabetes PAST SURGICAL HISTORY OF Left Small Toe removed due to diabetes FAMILY HISTORY: FAMILY HISTORY Problem Relation Age of Onset other (thyroid issue) Mother Arthritis Mother Colon Cancer Father No Known Problems Sister other (Breast Removal) Sister Uterine Fibroids Sister No Known Problems Sister Heart Maternal Grandmother Diabetes Maternal Grandmother Heart Maternal Grandfather Diabetes Maternal Grandfather Heart Paternal Grandmother No Known Problems Paternal Grandfather Diabetes Maternal Aunt Prostate Cancer Paternal Uncle other (lung cancer) Paternal Uncle SOCIAL HISTORY: Social Connections: Not on file REVIEW OF SYSTEMS: Constitutional: (+) weight loss Genitourinary: (+) decreased urinary frequency, (-) urinary urgency, (-) urinary frequency, (-) nocturia, (-) dysuria, (-) hematuria, (-) ur (more content not included)... Normal [facility] Anion gap in Serum or Plasma Ordered By: Kelli Shea on 01-15-2025 Anion gap [Moles/Vol] 13 mmol/L 5-15 [facility] BUN/creatinine ratioOrdered By: Kelli Shea on 01-15-2025 Urea nitrogen/Creatinine [Mass ratio] 31.6 mg/mg High - [facility] Basic Metabolic Profile (BMP )on 01-15-2025 BUN/CRE 31.6 RATIO High 04-08 [facility] Comment on above: Order Comment: 208.1 Performed By: #### L 100.0500, L500.2500, L501.6710 ####[facility] [address] [place], [address] Calcium [Mass/Vol] 9.1 mg/dL Normal 7.6-11.0 [facility] Comment on above: Order Comment: .1 Performed By: #### L 100.0500, L500.2500, [id number] ####[facility] [address] [place], [address] Chloride [Moles/Vol] 99 mmol/L Normal 98-108 [facility] Comment on above: Order Comment: 208.1 Performed By: #### L 100.0500, L500.2500, [id number] ####[facility] [address] [place], [address] CO2 [Moles/Vol] 28.8 mmol/L Normal 21.0-32.0 [facility] Comment on above: Order Comment: 208.1 Performed By: #### L 100.0500, L500.2500, [id number] ####[facility] [address] [place], [address] Creatinine [Mass/Vol] 1.09 mg/dL Normal 0.70-1.20 [facility] Comment on above: Order Comment: 208.1 Performed By: #### L 100.0500, L500.2500, [id number] ####[facility] [address] [place], [address] GAP 13 Normal 5-15 [facility] Comment on above: Order Comment: 208.1 Performed By: #### L 100.0500, L500.2500, [id number] ####[facility] [address] [place], [address] GFR/1.73 sq M.predicted among non-blacks MDRD (S/P/Bld) [Vol rate/Area] 73 mL/min/{1.73_m2} Normal >60 [facility] Comment on above: Order Comment: .1 Result Comment: mL/m in/1.73m2 CKD-EPI Creatinine Equation (2020) Performed By: #### L 100.0500, L500.2500, [id number] ####[facility] [address] [place], [address] Glucose [Mass/Vol] 98 mg/dL Normal 70-99 [facility] Comment on above: Order Comment: 208.1 Performed By: #### L 100.0500, L500.2500, [id number] ####[facility] [address] [place], [address] Potassium [Moles/Vol] 3.9 mmol/L Normal 3.3-5.1 [facility] Comment on above: Order Comment: 208.1 Performed By: #### L 100.0500, L500.2500, [id number] ####[facility] [address] [place], [address] Sodium [Moles/Vol] 141 mmol/L Normal 133-145 [facility] Comment on above: Order Comment: 208.1 Performed By: #### L 100.0500, L500.2500, [id number] ####[facility] [address] [place], [address] Urea nitrogen [Mass/Vol] 34 mg/dL High 4-19 [facility] Comment on above: Order Comment: 208.1 Performed By: #### L 100.0500, L500.2500, [id number] ####[facility] [address] [place], [address] CBC-Complete Blood Cnt No Di ffon 01-15-2025 Erythrocyte distribution width (RBC) [Ratio] 15.0 % High 11.6-14.6 [facility] Comment on above: Order Comment: 208.1 Performed By: #### L 100.0500, L500.2500, [id number] ####[facility] [address] [place], [address] Hematocrit (Bld) [Volume fraction] 32.7 % Low 40-54 [facility] Comment on above: Order Comment: 208.1 Performed By: #### L 100.0500, L500.2500, [id number] ####[facility] [address] [place], [address] Hemoglobin (Bld) [Mass/Vol] 10.6 g/dL Low 13.0-16.5 [facility] Comment on above: Order Comment: 208.1 Performed By: #### L 100.0500, L500.2500, [id number] ####[facility] [address] [place], [address] MCH (RBC) [Entitic mass] 27.0 pg Normal 27.0-32.0 [facility] Comment on above: Order Comment: 208.1 Performed By: #### L 100.0500, L500.2500, [id number] ####[facility] [address] [place], [address] MCHC (RBC) [Mass/Vol] 32.4 g/dL Normal 32-36 [facility] Comment on above: Order Comment: 208.1 Performed By: #### L 100.0500, L500.2500, [id number] ####[facility] [address] [place], [address] MCV (RBC) [Entitic vol] 83.2 fL Normal 80-94 [facility] Comment on above: Order Comment: 208.1 Performed By: #### L 100.0500, L500.2500, [id number] ####[facility] [address] [place], [address] Platelet mean volume (Bld) [Entitic vol] 10.6 fL Normal 6.2-12.0 [facility] Comment on above: Order Comment: .1 Performed By: #### L 100.0500, L500.2500, [id number] ####[facility] [address] [place], [address] Platelets (Bld) [#/Vol] 178 10*3/uL Normal 150-450 [facility] Comment on above: Order Comment: .1 Performed By: #### L 100.0500, L500.2500, [id number] ####[facility] [address] [place], [address] RBC (Bld) [#/Vol] 3.93 10*6/uL Low 4.6-6.2 [facility] Comment on above: Order Comment: .1 Performed By: #### L 100.0500, L500.2500, L501.6710 ####[facility] [address] [place], [address] RDW SD 45.7 fl High 35.1-43.9 [facility] Comment on above: Order Comment: 208.1 Performed By: #### L 100.0500, L500.2500, L501.6710 ####[facility] [address] [place], [address] WBC (Bld) [#/Vol] 8.4 10*3/uL Normal 4.4-11.0 [facility] Comment on above: Order Comment: 208.1 Performed By: #### L 100.0500, L500.2500, L501.6710 ####[facility] [address] [place], [address] CRPon 01-15-2025 C-REACTIVE PROT 11.80 mg/L High 0.0-3.0 [facility] Comment on above: Order Comment: 208.1 Performed By: #### L 100.0500, L500.2500, L501.6710 ####[facility] [address] [place], [address] Carbon dioxide, total [Moles /volume] in Central venous bloodOrdered By: Kelli Shea on 01-15-2025 CO2 [Moles/Vol] 28.8 mmol/L 21.0-32.0 [facility] Chloride assayOrdered By: Chris Shea on 01-15-2025 Chloride [Moles/Vol] 99 mmol/L 98-108 [facility] Erythrocyte distribution wid th ratioOrdered By: Kelli Shea on 01-15-2025 Erythrocyte distribution width (RBC) [Ratio] 15.0 % High 11.6-14.6 [facility] Erythrocyte distribution wid th standard deviationOrdered By: Kelli Shea on 01-15-2025 Erythrocyte distribution width (RBC) [Ratio] 45.7 fl High 35.1-43.9 [facility] Glomerular filtration rate ( GFR) estimation/1.73 sq m using serum, plasma, or whole bOrdered By: Kelli Shea on 01-15-2025 GFR/1.73 sq M.predicted among non-blacks MDRD (S/P/Bld) [Vol rate/Area] 73 mL/min/{1.73_m2} >60 [facility] Comment on above: mL/min/1.73m2 CKD-EP I Creatinine Equation (2020) Hematocrit Auto (Bld) [Volum e fraction]Ordered By: Kelli Shea on 01-15-2025 Hematocrit (Bld) [Volume fraction] 32.7 % Low 40-54 [facility] Hemoglobin measurementOrdere d By: Kelli Shea on 01-15-2025 Hemoglobin (Bld) [Mass/Vol] 10.6 g/dL Low 13.0-16.5 [facility] MCV (mean corpuscular volume ) determinationOrdered By: Kelli Shea on 01-15-2025 MCV (RBC) [Entitic vol] 83.2 fL 80-94 [facility] Mean corpuscular hemoglobin (MCH) determinationOrdered By: Kelli Shea on 01-15-2025 MCH (RBC) [Entitic mass] 27.0 pg 27.0-32.0 [facility] Mean corpuscular hemoglobin concentration (MCHC) determinationOrdered By: Kelli Shea on 01-15-2025 MCHC (RBC) [Mass/Vol] 32.4 g/dL 32-36 [facility] Mean platelet volume determi nationOrdered By: Kelli Shea on 01-15-2025 Platelet mean volume (Bld) [Entitic vol] 10.6 fL 6.2-12.0 [facility] Platelet countOrdered By: Chris Shea on 01-15-2025 Platelets (Bld) [#/Vol] 178 10*3/uL 150-450 [facility] Potassium measurement (mass/ volume)Ordered By: Kelli Shea on 01-15-2025 Potassium (Unsp spec) [Mass/Vol] 3.9 mmol/L 3.3-5.1 [facility] RBC Auto (Bld) [#/Vol]Ordere d By: Kelli Shea on 01-15-2025 RBC (Bld) [#/Vol] 3.93 10*6/uL Low 4.6-6.2 [facility] Serum creatinine measurement (mass/volume)Ordered By: Kelli Shea on 01-15-2025 Creatinine [Mass/Vol] 1.09 mg/dL 0.70-1.20 [facility] Serum glucose measurement (m ass/volume)Ordered By: Kelli Shea on 01-15-2025 Glucose [Mass/Vol] 98 mg/dL 70-99 [facility] Serum or plasma C reactive p rotein measurement (mass/volume)Ordered By: Kelli Shea on 01-15-2025 CRP [Mass/Vol] 11.80 mg/L High 0.0-3.0 [facility] Serum or plasma calcium everardo urement (mass/volume)Ordered By: Kelli Shea on 01-15-2025 Calcium [Mass/Vol] 9.1 mg/dL 7.6-11.0 [facility] Serum or plasma urea nitroge n measurement (mass/volume)Ordered By: Kelli Shea on 01-15-2025 Urea nitrogen [Mass/Vol] 34 mg/dL High 4-19 [facility] Sodium levelOrdered By: Nilay Shea on 01-15-2025 Sodium [Moles/Vol] 141 mmol/L 133-145 [facility] White blood cell (WBC) count Ordered By: Kellidelemr Shea on 01-15-2025 WBC (Bld) [#/Vol] 8.4 10*3/uL 4.4-11.0 [facility] Anion gap in Serum or Plasma Ordered By: Kelli Shea on 01-08-2025 Anion gap [Moles/Vol] 10 mmol/L 5-15 [facility] BUN/creatinine ratioOrdered By: Kelli Shea on 01-08-2025 Urea nitrogen/Creatinine [Mass ratio] 31.8 mg/mg High 10- [facility] Basic Metabolic Profile (BMP )on 01-08-2025 BUN/CRE 31.8 RATIO High 04-08 [facility] Comment on above: Order Comment: 208 Performed By: #### L 500.2500, L501.5200 ####[facility] [address], [address] Calcium [Mass/Vol] 9.1 mg/dL Normal 7.6-11.0 [facility] Comment on above: Order Comment: 208 Performed By: #### L 500.2500, L501.5200 ####[facility] [address] [place], [address] Chloride [Moles/Vol] 98 mmol/L Normal 98-108 [facility] Comment on above: Order Comment: 208 Performed By: #### L 500.2500, L501.5200 ####[facility] [address] [place], [address] CO2 [Moles/Vol] 31.4 mmol/L Normal 21.0-32.0 [facility] Comment on above: Order Comment: 208 Performed By: #### L 500.2500, L501.5200 ####[facility] [address], [address] Creatinine [Mass/Vol] 0.85 mg/dL Normal 0.70-1.20 [facility] Comment on above: Order Comment: 208 Performed By: #### L 500.2500, L501.5200 ####[facility] [address] [place], [address] GAP 10 Normal 5-15 [facility] Comment on above: Order Comment: 208 Performed By: #### L 500.2500, L501.5200 ####[facility] [address], [address] GFR/1.73 sq M.predicted among non-blacks MDRD (S/P/Bld) [Vol rate/Area] 94 mL/min/{1.73_m2} Normal >60 [facility] Comment on above: Order Comment: 208 Result Comment: mL/m in/1.73m2 CKD-EPI Creatinine Equation (2020) Performed By: #### L 500.2500, L501.5200 ####[facility] [address] [place], [address] Glucose [Mass/Vol] 126 mg/dL High 70-99 [facility] Comment on above: Order Comment: 208 Performed By: #### L 500.2500, L501.5200 ####[facility] [address] [place], [address] Potassium [Moles/Vol] 4.0 mmol/L Normal 3.3-5.1 [facility] Comment on above: Order Comment: 208 Performed By: #### L 500.2500, L501.5200 ####[facility] [address], [address] Sodium [Moles/Vol] 140 mmol/L Normal 133-145 [facility] Comment on above: Order Comment: 208 Performed By: #### L 500.2500, L501.5200 ####[facility] [address], [address] Urea nitrogen [Mass/Vol] 27 mg/dL High 4-19 [facility] Comment on above: Order Comment: 208 Performed By: #### L 500.2500, L501.5200 ####[facility] [address], [address] Carbon dioxide, total [Moles /volume] in Central venous bloodOrdered By: Kelli Shea on 01-08-2025 CO2 [Moles/Vol] 31.4 mmol/L 21.0-32.0 [facility] Chloride assayOrdered By: Chris Shea on 01-08-2025 Chloride [Moles/Vol] 98 mmol/L 98-108 [facility] Glomerular filtration rate ( GFR) estimation/1.73 sq m using serum, plasma, or whole bOrdered By: Kelli Shea on 01-08-2025 GFR/1.73 sq M.predicted among non-blacks MDRD (S/P/Bld) [Vol rate/Area] 94 mL/min/{1.73_m2} >60 [facility] Comment on above: mL/min/1.73m2 CKD-EP I Creatinine Equation (2020) Magnesiumon 01-08-2025 Magnesium [Mass/Vol] 1.6 mg/dL Normal 1.5-2.2 [facility] Comment on above: Order Comment: 208 Performed By: #### L 500.2500, L501.5200 ####[facility] [address], [address] Magnesium measurement (mass/ volume)Ordered By: Kelli Shea on 01-08-2025 Magnesium (Unsp spec) [Mass/Vol] 1.6 mg/dL 1.5-2.2 [facility] Potassium measurement (mass/ volume)Ordered By: Kelli Shea on 01-08-2025 Potassium (Unsp spec) [Mass/Vol] 4.0 mmol/L 3.3-5.1 [facility] Serum creatinine measurement (mass/volume)Ordered By: Kelli Shea on 01-08-2025 Creatinine [Mass/Vol] 0.85 mg/dL 0.70-1.20 [facility] Serum glucose measurement (m ass/volume)Ordered By: Kelli Shea on 01-08-2025 Glucose [Mass/Vol] 126 mg/dL High 70-99 [facility] Serum or plasma calcium everardo urement (mass/volume)Ordered By: Kelli Shea on 01-08-2025 Calcium [Mass/Vol] 9.1 mg/dL 7.6-11.0 [facility] Serum or plasma urea nitroge n measurement (mass/volume)Ordered By: Kelli Shea on 01-08-2025 Urea nitrogen [Mass/Vol] 27 mg/dL High 4-19 [facility] Sodium levelOrdered By: Nilay Shea on 01-08-2025 Sodium [Moles/Vol] 140 mmol/L 133-145 [facility] Culture, Anaerobic Any Sourc devonte 01-05-2025 CUAN No anaerobic bacteria isolated. [facility] Comment on above: Performed By: #### M 100.4001, M100.3000, M1 ####[facility] [address] [place], [address] Wound Cultureon 01-04-2025 [facility] Comment on above: Performed By: #### M 100.4001, M100.3000, M1 ####[facility] [address] [place], [address] Gram Stainon 01-03-2025 GS Positive Normal [facility] Comment on above: Performed By: #### M 100.4001, M100.3000, M100.2000 ####[facility] [address] [place], [address] Anaerobic cultureOrdered By: León Cerda on 01-02-2025 Bacteria identified Anaer cx Nom (Unsp spec) No anaerobic bacteria isolated. [facility] Gram stainOrdered By: Natalee Cerda on 01-02-2025 Microscopic observation Gram stain Nom (Unsp spec) [facility] Routine wound cultureOrdered By: León Cerda on 01-02-2025 Microbial culture, routine Meth. resistant Staph. aureus Abnormal [facility] Anion gap in Serum or Plasma Ordered By: Kelli Shea on 01-01-2025 Anion gap [Moles/Vol] 12 mmol/L 11-01 [facility] BUN/creatinine ratioOrdered By: Kelli Shea on 01-01-2025 Urea nitrogen/Creatinine [Mass ratio] 31.3 mg/mg High 10-20 [facility] Basic Metabolic Profile (BMP )on 01-01-2025 BUN/CRE 31.3 RATIO High [facility] Comment on above: Order Comment: 208.1 Performed By: #### L 100.0500, L500.2500, L501.6710 ####[facility] [address], [address] Calcium [Mass/Vol] 9.4 mg/dL Normal 7.6-11.0 [facility] Comment on above: Order Comment: 208.1 Performed By: #### L 100.0500, L500.2500, L501.6710 ####[facility] [address], [address] Chloride [Moles/Vol] 101 mmol/L Normal 98-108 [facility] Comment on above: Order Comment: 208.1 Performed By: #### L 100.0500, L500.2500, L501.6710 ####[facility] [address] [place], [address] CO2 [Moles/Vol] 28.3 mmol/L Normal 21.0-32.0 [facility] Comment on above: Order Comment: 208.1 Performed By: #### L 100.0500, L500.2500, L501.6710 ####[facility] [address] [place], [address] Creatinine [Mass/Vol] 0.83 mg/dL Normal 0.70-1.20 [facility] Comment on above: Order Comment: 208.1 Performed By: #### L 100.0500, L500.2500, L501.6710 ####[facility] [address] [place], [address] GAP 12 Normal 5-15 [facility] Comment on above: Order Comment: .1 Performed By: #### L 100.0500, L500.2500, L501.6710 ####[facility] [address] [place], [address] GFR/1.73 sq M.predicted among non-blacks MDRD (S/P/Bld) [Vol rate/Area] 94 mL/min/{1.73_m2} Normal >60 [facility] Comment on above: Order Comment: .1 Result Comment: mL/m in/1.73m2 CKD-EPI Creatinine Equation (2020) Performed By: #### L 100.0500, L500.2500, L501.6710 ####[facility] [address] [place], [address] Glucose [Mass/Vol] 114 mg/dL High 70-99 [facility] Comment on above: Order Comment: 208.1 Performed By: #### L 100.0500, L500.2500, L501.6710 ####[facility] [address] [place], [address] Potassium [Moles/Vol] 3.7 mmol/L Normal 3.3-5.1 [facility] Comment on above: Order Comment: 208.1 Performed By: #### L 100.0500, L500.2500, L501.6710 ####[facility] [address], [address] Sodium [Moles/Vol] 142 mmol/L Normal 133-145 [facility] Comment on above: Order Comment: 208.1 Performed By: #### L 100.0500, L500.2500, L501.6710 ####[facility] [address], [address] Urea nitrogen [Mass/Vol] 26 mg/dL High 4-19 [facility] Comment on above: Order Comment: .1 Performed By: #### L 100.0500, L500.2500, L501.6710 ####[facility] [address], [address] CBC-Complete Blood Cnt No Di ffon 01-01-2025 Erythrocyte distribution width (RBC) [Ratio] 15.9 % High 11.6-14.6 [facility] Comment on above: Order Comment: .1 Performed By: #### L 100.0500, L500.2500, L501.6710 ####[facility] [address], [address] Hematocrit (Bld) [Volume fraction] 33.1 % Low 40-54 [facility] Comment on above: Order Comment: 208.1 Performed By: #### L 100.0500, L500.2500, L501.6710 ####[facility] [address], [address] Hemoglobin (Bld) [Mass/Vol] 11.0 g/dL Low 13.0-16.5 [facility] Comment on above: Order Comment: 208.1 Performed By: #### L 100.0500, L500.2500, L501.6710 ####[facility] [address] [place], [address] MCH (RBC) [Entitic mass] 27.6 pg Normal 27.0-32.0 [facility] Comment on above: Order Comment: .1 Performed By: #### L 100.0500, L500.2500, L501.6710 ####[facility] [address], [address] MCHC (RBC) [Mass/Vol] 33.2 g/dL Normal 32-36 [facility] Comment on above: Order Comment: .1 Performed By: #### L 100.0500, L500.2500, L501.6710 ####[facility] [address], [address] MCV (RBC) [Entitic vol] 83.2 fL Normal 80-94 [facility] Comment on above: Order Comment: .1 Performed By: #### L 100.0500, L500.2500, L501.6710 ####[facility] [address], [address] Platelet mean volume (Bld) [Entitic vol] 10.8 fL Normal 6.2-12.0 [facility] Comment on above: Order Comment: .1 Performed By: #### L 100.0500, L500.2500, L501.6710 ####[facility] [address], [address] Platelets (Bld) [#/Vol] 165 10*3/uL Normal 150-450 [facility] Comment on above: Order Comment: 208.1 Performed By: #### L 100.0500, L500.2500, L501.6710 ####[facility] [address], [address] RBC (Bld) [#/Vol] 3.98 10*6/uL Low 4.6-6.2 [facility] Comment on above: Order Comment: 208.1 Performed By: #### L 100.0500, L500.2500, L501.6710 ####[facility] [address], [address] RDW SD 48.0 fl High 35.1-43.9 [facility] Comment on above: Order Comment: 208.1 Performed By: #### L 100.0500, L500.2500, L501.6710 ####[facility] [address], [address] WBC (Bld) [#/Vol] 6.9 10*3/uL Normal 4.4-11.0 [facility] Comment on above: Order Comment: 208.1 Performed By: #### L 100.0500, L500.2500, L501.6710 ####[facility] [address], [address] CRPon 01-01-2025 C-REACTIVE PROT 21.70 mg/L High 0.0-3.0 [facility] Comment on above: Order Comment: 208.1 Performed By: #### L 100.0500, L500.2500, L501.6710 ####[facility] [address], [address] Carbon dioxide, total [Moles /volume] in Central venous bloodOrdered By: Kelli Shea on 01-01-2025 CO2 [Moles/Vol] 28.3 mmol/L 21.0-32.0 [facility] Chloride assayOrdered By: Chris Shea on 01-01-2025 Chloride [Moles/Vol] 101 mmol/L 98-108 [facility] Erythrocyte distribution wid th ratioOrdered By: Kelli Shea on 01-01-2025 Erythrocyte distribution width (RBC) [Ratio] 15.9 % High 11.6-14.6 [facility] Erythrocyte distribution wid th standard deviationOrdered By: Kelli Shea on 01-01-2025 Erythrocyte distribution width (RBC) [Ratio] 48.0 fl High 35.1-43.9 [facility] Glomerular filtration rate ( GFR) estimation/1.73 sq m using serum, plasma, or whole bOrdered By: Kelli Shea on 01-01-2025 GFR/1.73 sq M.predicted among non-blacks MDRD (S/P/Bld) [Vol rate/Area] 94 mL/min/{1.73_m2} >60 [facility] Comment on above: mL/min/1.73m2 CKD-EP I Creatinine Equation (2020) Hematocrit Auto (Bld) [Volum e fraction]Ordered By: Kelli Shea on 01-01-2025 Hematocrit (Bld) [Volume fraction] 33.1 % Low 40-54 [facility] Hemoglobin measurementOrdere d By: Kelli Shea on 01-01-2025 Hemoglobin (Bld) [Mass/Vol] 11.0 g/dL Low 13.0-16.5 [facility] MCV (mean corpuscular volume ) determinationOrdered By: Kelli Shea on 01-01-2025 MCV (RBC) [Entitic vol] 83.2 fL 80-94 [facility] Mean corpuscular hemoglobin (MCH) determinationOrdered By: Kelli Shea on 01-01-2025 MCH (RBC) [Entitic mass] 27.6 pg 27.0-32.0 [facility] Mean corpuscular hemoglobin concentration (MCHC) determinationOrdered By: Kelli Shea on 01-01-2025 MCHC (RBC) [Mass/Vol] 33.2 g/dL 32-36 [facility] Mean platelet volume determi nationOrdered By: Kelli Shea on 01-01-2025 Platelet mean volume (Bld) [Entitic vol] 10.8 fL 6.2-12.0 [facility] Platelet countOrdered By: Chris Shea on 01-01-2025 Platelets (Bld) [#/Vol] 165 10*3/uL 150-450 [facility] Potassium measurement (mass/ volume)Ordered By: Kelli Shea on 01-01-2025 Potassium (Unsp spec) [Mass/Vol] 3.7 mmol/L 3.3-5.1 [facility] RBC Auto (Bld) [#/Vol]Ordere d By: Kelli Shea on 01-01-2025 RBC (Bld) [#/Vol] 3.98 10*6/uL Low 4.6-6.2 [facility] Serum creatinine measurement (mass/volume)Ordered By: Kelli Shea on 01-01-2025 Creatinine [Mass/Vol] 0.83 mg/dL 0.70-1.20 [facility] Serum glucose measurement (m ass/volume)Ordered By: Kelli Shea on 01-01-2025 Glucose [Mass/Vol] 114 mg/dL High 70-99 [facility] Serum or plasma C reactive p rotein measurement (mass/volume)Ordered By: Kelli Shea on 01-01-2025 CRP [Mass/Vol] 21.70 mg/L High 0.0-3.0 [facility] Serum or plasma calcium everardo urement (mass/volume)Ordered By: Kelli Shea on 01-01-2025 Calcium [Mass/Vol] 9.4 mg/dL 7.6-11.0 [facility] Serum or plasma urea nitroge n measurement (mass/volume)Ordered By: Kelli Shea on 01-01-2025 Urea nitrogen [Mass/Vol] 26 mg/dL High 4-19 [facility] Sodium levelOrdered By: Nilay Shea on 01-01-2025 Sodium [Moles/Vol] 142 mmol/L 133-145 [facility] White blood cell (WBC) count Ordered By: Kelli Shea on 01-01-2025 WBC (Bld) [#/Vol] 6.9 10*3/uL 4.4-11.0 [facility] Wound Ctr History AND Physic arely 12-29-2024 Wound Ctr History & Physical Normal [facility] Wound Ctr History AND Physic arely 12-21-2024 Wound Ctr History & Physical Normal [facility] Absolute lymphocyte countOrd ered By: Kelli Shea on 12-18-2024 Lymphocytes Auto (Unsp spec) [#/Vol] 2.30 10*3/uL 0.83-4.51 [facility] Absolute neutrophil countOrd ered By: Kelli Shea on 12-18-2024 Neutrophils (Bld) [#/Vol] 4.3 10*3/uL 2.0-7.7 [facility] Anion gap in Serum or Plasma Ordered By: Kelli Shea on 12-18-2024 Anion gap [Moles/Vol] 12 mmol/L 5-15 [facility] Automated blood erythrocyte countOrdered By: Kelli Shea on 12-18-2024 RBC (Bld) [#/Vol] 4.06 10*6/uL Low 4.6-6.2 [facility] Comment on above: Order Comment: 208.1 Performed By: #### L 501.6710, L500.2500, L100.0100 ####[facility] [address] [place], [place], [id number] Automated blood hematocrit ( percentage)Ordered By: Kelli Shea on 12-18-2024 Hematocrit (Bld) [Volume fraction] 33.7 % Low 40-54 [facility] Comment on above: Order Comment: 208.1 Performed By: #### L 501.6710, L500.2500, L100.0100 ####[facility] [address] [place], [place], [id number] Automated lymphocyte count a s percentage of total leukocytesOrdered By: Kelli Shea on 12-18-2024 Lymphocytes/100 WBC Auto (Unsp spec) 30.8 % 19-41 [facility] BUN/creatinine ratioOrdered By: Kelli Shea on 12-18-2024 Urea nitrogen/Creatinine [Mass ratio] 30.2 mg/mg High 10- [facility] Basic Metabolic Profile (BMP )on 12-18-2024 BUN/CRE 30.2 RATIO High - [facility] Comment on above: Order Comment: 208.1 Performed By: #### L 501.6710, L500.2500, L100.0100 ####[facility] [address] [place], [address] GAP 12 Normal 5-15 [facility] Comment on above: Order Comment: 208.1 Performed By: #### L 501.6710, L500.2500, L100.0100 ####[facility] [address] [place], [address] Potassium [Moles/Vol] 3.9 mmol/L Normal 3.3-5.1 [facility] Comment on above: Order Comment: .1 Performed By: #### L 501.6710, L500.2500, L100.0100 ####[facility] [address], [address] Basophil percentageOrdered B y: Kelli Njdayjuarez on 12-18-2024 Basophils/100 WBC (Bld) 0.7 % Normal 0-1 [facility] Comment on above: Order Comment: 208.1 Performed By: #### L 501.6710, L500.2500, L100.0100 ####[facility] [address], [address] CBC W/Diff, Automatedon 07-0 Absolute Lymph 2.30 X10 3/uL Normal 0.83-4.51 [facility] Comment on above: Order Comment: 208.1 Performed By: #### L 501.6710, L500.2500, L100.0100 ####[facility] [address], [address] Absolute Neut 4.3 X10 3/uL Normal 2.0-7.7 [facility] Comment on above: Order Comment: 208.1 Performed By: #### L 501.6710, L500.2500, L100.0100 ####[facility] [address] [place], [address] IG% 0.100 Normal 0.0-0.9 [facility] Comment on above: Order Comment: 208.1 Result Comment: IG% - Immature Granulocytes (promyelocytes, myelocytes andmetamyelocytes) > 1% indicates that a LEFT SHIFT is Present. Performed By: #### L 501.6710, L500.2500, L100.0100 ####[facility] [address], [address] Lymphocytes/100 WBC (Bld) 30.8 % Normal 19-41 [facility] Comment on above: Order Comment: 208.1 Performed By: #### L 501.6710, L500.2500, L100.0100 ####[facility] [address], [address] Nucleated RBC (Bld) [#/Vol] 0 10*3/uL Normal 0-5 [facility] Comment on above: Order Comment: .1 Performed By: #### L 501.6710, L500.2500, L100.0100 ####[facility] [address], [address] RDW SD 46.4 fl High 35.1-43.9 [facility] Comment on above: Order Comment: .1 Performed By: #### L 501.6710, L500.2500, L100.0100 ####[facility] [address], [address] CRPon 12-18-2024 C-REACTIVE PROT 13.50 mg/L High 0.0-3.0 [facility] Comment on above: Order Comment: 208.1 Performed By: #### L 501.6710, L500.2500, L100.0100 ####[facility] [address], [address] Carbon dioxide, total [Moles /volume] in Central venous bloodOrdered By: Kelli Shea on 12-18-2024 CO2 [Moles/Vol] 29.0 mmol/L Normal 21.0-32.0 [facility] Comment on above: Order Comment: 208.1 Performed By: #### L 501.6710, L500.2500, L100.0100 ####[facility] [address] [place], [address] Chloride assayOrdered By: Chris Shea on 12-18-2024 Chloride [Moles/Vol] 101 mmol/L Normal 98-108 [facility] Comment on above: Order Comment: 208.1 Performed By: #### L 501.6710, L500.2500, L100.0100 ####[facility] [address] [place], [address] Eosinophil percentageOrdered By: Kelli Shea on 12-18-2024 Eosinophils/100 WBC (Bld) 3.1 % Normal 0-5 [facility] Comment on above: Order Comment: 208.1 Performed By: #### L 501.6710, L500.2500, L100.0100 ####[facility] [address] [place], [address] Erythrocyte distribution wid th ratioOrdered By: Kelli Shea on 12-18-2024 Erythrocyte distribution width (RBC) [Ratio] 15.8 % High 11.6-14.6 [facility] Comment on above: Order Comment: 208.1 Performed By: #### L 501.6710, L500.2500, L100.0100 ####[facility] [address] [place], [address] Erythrocyte distribution wid th standard deviationOrdered By: Kelli Shea on 12-18-2024 Erythrocyte distribution width (RBC) [Ratio] 46.4 fl High 35.1-43.9 [facility] Glomerular filtration rate ( GFR) estimation/1.73 sq m using serum, plasma, or whole bOrdered By: Kelli Shea on 12-18-2024 GFR/1.73 sq M.predicted among non-blacks MDRD (S/P/Bld) [Vol rate/Area] 91 mL/min/{1.73_m2} Normal >60 [facility] Comment on above: mL/min/1.73m2 CKD-EP I Creatinine Equation (2020) Order Comment: .1 Result Comment: mL/m in/1.73m2 CKD-EPI Creatinine Equation (2020) Performed By: #### L 501.6710, L500.2500, L100.0100 ####[facility] [address] [place], [address] Hemoglobin measurementOrdere d By: Kelli Shea on 12-18-2024 Hemoglobin (Bld) [Mass/Vol] 10.9 g/dL Low 13.0-16.5 [facility] Comment on above: Order Comment: 208.1 Performed By: #### L 501.6710, L500.2500, L100.0100 ####[facility] [address], [address] Immature granulocytes/100 WB C Auto (Bld)Ordered By: Kelli Shea on 12-18-2024 Immature granulocytes/100 WBC (Bld) 0.100 % 0.0-0.9 [facility] Comment on above: IG% - Immature Granu locytes (promyelocytes, myelocytes and metamyelocytes) > 1% indicates that a LEFT SHIFT is Present. MCV (mean corpuscular volume ) determinationOrdered By: Kelli Shea on 12-18-2024 MCV (RBC) [Entitic vol] 83.0 fL Normal 80-94 [facility] Comment on above: Order Comment: 208.1 Performed By: #### L 501.6710, L500.2500, L100.0100 ####[facility] [address] [place], [place], [address] Mean corpuscular hemoglobin (MCH) determinationOrdered By: Kelli Shea on 12-18-2024 MCH (RBC) [Entitic mass] 26.8 pg Low 27.0-32.0 [facility] Comment on above: Order Comment: 208.1 Performed By: #### L 501.6710, L500.2500, L100.0100 ####[facility] [address], [address] Mean corpuscular hemoglobin concentration (MCHC) determinationOrdered By: Kelli Shea on 12-18-2024 MCHC (RBC) [Mass/Vol] 32.3 g/dL Normal 32-36 [facility] Comment on above: Order Comment: 208.1 Performed By: #### L 501.6710, L500.2500, L100.0100 ####[facility] [address] [place], [address] Mean platelet volume determi nationOrdered By: Kelli Shea on 12-18-2024 Platelet mean volume (Bld) [Entitic vol] 11.0 fL Normal 6.2-12.0 [facility] Comment on above: Order Comment: .1 Performed By: #### L 501.6710, L500.2500, L100.0100 ####[facility] [address] [place], [address] Monocyte percentageOrdered B y: Kelli Shea on 12-18-2024 Monocytes/100 WBC (Bld) 7.6 % Normal 0-10 [facility] Comment on above: Order Comment: 208.1 Performed By: #### L 501.6710, L500.2500, L100.0100 ####[facility] [address] [place], [address] Neutrophil percentageOrdered By: Kelli Shea on 12-18-2024 Neutrophils/100 WBC (Bld) 57.7 % Normal 47-70 [facility] Comment on above: Order Comment: 208.1 Performed By: #### L 501.6710, L500.2500, L100.0100 ####[facility] [address] [place], [address] Nucleated red blood cell per centageOrdered By: Kelli Shea on 12-18-2024 Nucleated RBC/100 WBC (Bld) [Ratio] 0 % 0-5 [facility] Platelet countOrdered By: Chris Shea on 12-18-2024 Platelets (Bld) [#/Vol] 189 10*3/uL Normal 150-450 [facility] Comment on above: Order Comment: 208.1 Performed By: #### L 501.6710, L500.2500, L100.0100 ####[facility] [address] [place], [address] Potassium measurement (mass/ volume)Ordered By: Kelli Shea on 12-18-2024 Potassium (Unsp spec) [Mass/Vol] 3.9 mmol/L 3.3-5.1 [facility] Serum creatinine measurement (mass/volume)Ordered By: Kelli Shea on 12-18-2024 Creatinine [Mass/Vol] 0.91 mg/dL Normal 0.70-1.20 [facility] Comment on above: Order Comment: 208.1 Performed By: #### L 501.6710, L500.2500, L100.0100 ####[facility] [address], [address] Serum glucose measurement (m ass/volume)Ordered By: Kelli Shea on 12-18-2024 Glucose [Mass/Vol] 132 mg/dL High 70-99 [facility] Comment on above: Order Comment: 208.1 Performed By: #### L 501.6710, L500.2500, L100.0100 ####[facility] [address], [address] Serum or plasma C reactive p rotein measurement (mass/volume)Ordered By: Kelli Shea on 12-18-2024 CRP [Mass/Vol] 13.50 mg/L High 0.0-3.0 [facility] Serum or plasma calcium everardo urement (mass/volume)Ordered By: Kelli Shea on 12-18-2024 Calcium [Mass/Vol] 9.3 mg/dL Normal 7.6-11.0 [facility] Comment on above: Order Comment: 208.1 Performed By: #### L 501.6710, L500.2500, L100.0100 ####[facility] [address] [place], [address] Serum or plasma urea nitroge n measurement (mass/volume)Ordered By: Kelli Shea on 12-18-2024 Urea nitrogen [Mass/Vol] 28 mg/dL High 4-19 [facility] Comment on above: Order Comment: 208.1 Performed By: #### L 501.6710, L500.2500, L100.0100 ####[facility] [address] [place], [address] Sodium levelOrdered By: Nilay Shea on 12-18-2024 Sodium [Moles/Vol] 141 mmol/L Normal 133-145 [facility] Comment on above: Order Comment: 208.1 Performed By: #### L 501.6710, L500.2500, L100.0100 ####[facility] [address] [place], [address] White blood cell (WBC) count Ordered By: Kelli Shea on 12-18-2024 WBC (Bld) [#/Vol] 7.5 10*3/uL Normal 4.4-11.0 [facility] Comment on above: Order Comment: 208.1 Performed By: #### L 501.6710, L500.2500, L100.0100 ####[facility] [address], [address] Absolute lymphocyte countOrd ered By: Kelli Shea on 12-10-2024 Lymphocytes Auto (Unsp spec) [#/Vol] 2.60 10*3/uL 0.83-4.51 [facility] Absolute neutrophil countOrd ered By: Kelli Shea on 12-10-2024 Neutrophils (Bld) [#/Vol] 4.6 10*3/uL 2.0-7.7 [facility] Anion gap in Serum or Plasma Ordered By: Kelli Shea on 12-10-2024 Anion gap [Moles/Vol] 12 mmol/L 5- [facility] Automated lymphocyte count a s percentage of total leukocytesOrdered By: Kelli Shea on 12-10-2024 Lymphocytes/100 WBC Auto (Unsp spec) 32.9 % [facility] BUN/creatinine ratioOrdered By: Kelli Shea on 12-10-2024 Urea nitrogen/Creatinine [Mass ratio] 33.2 mg/mg High 04-08 [facility] Basic Metabolic Profile (BMP )on 12-10-2024 BUN/CRE 33.2 RATIO High 04-08 [facility] Comment on above: Order Comment: 208 Performed By: #### L 500.2500, L501.6710, L100.0100 ####[facility] [address] [place], [address] Calcium [Mass/Vol] 9.3 mg/dL Normal 7.6-11.0 [facility] Comment on above: Order Comment: 208 Performed By: #### L 500.2500, L501.6710, L100.0100 ####[facility] [address] [place], [address] Chloride [Moles/Vol] 99 mmol/L Normal 98-108 [facility] Comment on above: Order Comment: 208 Performed By: #### L 500.2500, L501.6710, L100.0100 ####[facility] [address] [place], [address] CO2 [Moles/Vol] 28.2 mmol/L Normal 21.0-32.0 [facility] Comment on above: Order Comment: 208 Performed By: #### L 500.2500, L501.6710, L100.0100 ####[facility] [address] [place], [address] Creatinine [Mass/Vol] 0.89 mg/dL Normal 0.70-1.20 [facility] Comment on above: Order Comment: 208 Performed By: #### L 500.2500, L501.6710, L100.0100 ####[facility] [address] [place], [address] GAP 12 Normal 5-15 [facility] Comment on above: Order Comment: 208 Performed By: #### L 500.2500, L501.6710, L100.0100 ####[facility] [address] [place], [address] GFR/1.73 sq M.predicted among non-blacks MDRD (S/P/Bld) [Vol rate/Area] 92 mL/min/{1.73_m2} Normal >60 [facility] Comment on above: Order Comment: 208 Result Comment: mL/m in/1.73m2 CKD-EPI Creatinine Equation (2020) Performed By: #### L 500.2500, L501.6710, L100.0100 ####[facility] [address] [place], [address] Glucose [Mass/Vol] 147 mg/dL High 70-99 [facility] Comment on above: Order Comment: 208 Performed By: #### L 500.2500, L501.6710, L100.0100 ####[facility] [address] [place], [address] Potassium [Moles/Vol] 4.2 mmol/L Normal 3.3-5.1 [facility] Comment on above: Order Comment: 208 Performed By: #### L 500.2500, L501.6710, L100.0100 ####[facility] [address] [place], [address] Sodium [Moles/Vol] 140 mmol/L Normal 133-145 [facility] Comment on above: Order Comment: 208 Performed By: #### L 500.2500, L501.6710, L100.0100 ####[facility] [address], [address] Urea nitrogen [Mass/Vol] 29 mg/dL High 4-19 [facility] Comment on above: Order Comment: 208 Performed By: #### L 500.2500, L501.6710, L100.0100 ####[facility] [address], [address] Basophil percentageOrdered B y: Kelli Shea on 12-10-2024 Basophils/100 WBC (Bld) 0.5 % 0-1 [facility] CBC W/Diff, Automatedon 11-19-2024 Absolute Lymph 2.60 X10 3/uL Normal 0.83-4.51 [facility] Comment on above: Order Comment: 208 Performed By: #### L 500.2500, L501.6710, L100.0100 ####[facility] [address], [address] Absolute Neut 4.6 X10 3/uL Normal 2.0-7.7 [facility] Comment on above: Order Comment: 208 Performed By: #### L 500.2500, L501.6710, L100.0100 ####[facility] [address], [address] Basophils/100 WBC (Bld) 0.5 % Normal 0-1 [facility] Comment on above: Order Comment: 208 Performed By: #### L 500.2500, L501.6710, L100.0100 ####[facility] [address], [address] Eosinophils/100 WBC (Bld) 2.3 % Normal 0-5 [facility] Comment on above: Order Comment: 208 Performed By: #### L 500.2500, L501.6710, L100.0100 ####[facility] [address], [address] Erythrocyte distribution width (RBC) [Ratio] 15.3 % High 11.6-14.6 [facility] Comment on above: Order Comment: 208 Performed By: #### L 500.2500, L501.6710, L100.0100 ####[facility] [address], [address] Hematocrit (Bld) [Volume fraction] 33.8 % Low 40-54 [facility] Comment on above: Order Comment: 208 Performed By: #### L 500.2500, L501.6710, L100.0100 ####[facility] [address], [address] Hemoglobin (Bld) [Mass/Vol] 11.2 g/dL Low 13.0-16.5 [facility] Comment on above: Order Comment: 208 Performed By: #### L 500.2500, L501.6710, L100.0100 ####[facility] [address], [address] IG% 0.300 Normal 0.0-0.9 [facility] Comment on above: Order Comment: 208 Result Comment: IG% - Immature Granulocytes (promyelocytes, myelocytes andmetamyelocytes) > 1% indicates that a LEFT SHIFT is Present. Performed By: #### L 500.2500, L501.6710, L100.0100 ####[facility] [address], [address] Lymphocytes/100 WBC (Bld) 32.9 % Normal 19-41 [facility] Comment on above: Order Comment: 208 Performed By: #### L 500.2500, L501.6710, L100.0100 ####[facility] [address], [address] MCH (RBC) [Entitic mass] 27.1 pg Normal 27.0-32.0 [facility] Comment on above: Order Comment: 208 Performed By: #### L 500.2500, L501.6710, L100.0100 ####[facility] [address], [address] MCHC (RBC) [Mass/Vol] 33.1 g/dL Normal 32-36 [facility] Comment on above: Order Comment: 208 Performed By: #### L 500.2500, L501.6710, L100.0100 ####[facility] [address], [address] MCV (RBC) [Entitic vol] 81.6 fL Normal 80-94 [facility] Comment on above: Order Comment: 208 Performed By: #### L 500.2500, L501.6710, L100.0100 ####[facility] [address], [address] Monocytes/100 WBC (Bld) 6.1 % Normal 0-10 [facility] Comment on above: Order Comment: 208 Performed By: #### L 500.2500, L501.6710, L100.0100 ####[facility] [address], [address] Neutrophils/100 WBC (Bld) 57.9 % Normal 47-70 [facility] Comment on above: Order Comment: 208 Performed By: #### L 500.2500, L501.6710, L100.0100 ####[facility] [address], [address] Nucleated RBC (Bld) [#/Vol] 0 10*3/uL Normal 0-5 [facility] Comment on above: Order Comment: 208 Performed By: #### L 500.2500, L501.6710, L100.0100 ####[facility] [address], [address] Platelet mean volume (Bld) [Entitic vol] 11.4 fL Normal 6.2-12.0 [facility] Comment on above: Order Comment: 208 Performed By: #### L 500.2500, L501.6710, L100.0100 ####[facility] [address] [place], [address] Platelets (Bld) [#/Vol] 199 10*3/uL Normal 150-450 [facility] Comment on above: Order Comment: 208 Performed By: #### L 500.2500, L501.6710, L100.0100 ####[facility] [address] [place], [address] RBC (Bld) [#/Vol] 4.14 10*6/uL Low 4.6-6.2 [facility] Comment on above: Order Comment: 208 Performed By: #### L 500.2500, L501.6710, L100.0100 ####[facility] [address] [place], [address] RDW SD 44.7 fl High 35.1-43.9 [facility] Comment on above: Order Comment: 208 Performed By: #### L 500.2500, L501.6710, L100.0100 ####[facility] [address] [place], [address] WBC (Bld) [#/Vol] 7.9 10*3/uL Normal 4.4-11.0 [facility] Comment on above: Order Comment: 208 Performed By: #### L 500.2500, L501.6710, L100.0100 ####[facility] [address] [place], [address] CRPon 12-10-2024 C-REACTIVE PROT 19.40 mg/L High 0.0-3.0 [facility] Comment on above: Order Comment: 208 Performed By: #### L 500.2500, L501.6710, L100.0100 ####[facility] [address] [place], [address] Carbon dioxide, total [Moles /volume] in Central venous bloodOrdered By: Kelli Shea on 12-10-2024 CO2 [Moles/Vol] 28.2 mmol/L 21.0-32.0 [facility] Chloride assayOrdered By: Chris Shea on 12-10-2024 Chloride [Moles/Vol] 99 mmol/L 98-108 [facility] Eosinophil percentageOrdered By: Kelli Shea on 12-10-2024 Eosinophils/100 WBC (Bld) 2.3 % 0-5 [facility] Erythrocyte distribution wid th ratioOrdered By: Kelli Shea on 12-10-2024 Erythrocyte distribution width (RBC) [Ratio] 15.3 % High 11.6-14.6 [facility] Erythrocyte distribution wid th standard deviationOrdered By: Kelli Shea on 12-10-2024 Erythrocyte distribution width (RBC) [Ratio] 44.7 fl High 35.1-43.9 [facility] Glomerular filtration rate ( GFR) estimation/1.73 sq m using serum, plasma, or whole bOrdered By: Kelli Shea on 12-10-2024 GFR/1.73 sq M.predicted among non-blacks MDRD (S/P/Bld) [Vol rate/Area] 92 mL/min/{1.73_m2} >60 [facility] Comment on above: mL/min/1.73m2 CKD-EP I Creatinine Equation (2020) Hematocrit Auto (Bld) [Volum e fraction]Ordered By: Kelli Shea on 12-10-2024 Hematocrit (Bld) [Volume fraction] 33.8 % Low 40-54 [facility] Hemoglobin measurementOrdere d By: Kelli Shea on 12-10-2024 Hemoglobin (Bld) [Mass/Vol] 11.2 g/dL Low 13.0-16.5 [facility] Immature granulocytes/100 WB C Auto (Bld)Ordered By: Kelli Shea on 12-10-2024 Immature granulocytes/100 WBC (Bld) 0.300 % 0.0-0.9 [facility] Comment on above: IG% - Immature Granu locytes (promyelocytes, myelocytes and metamyelocytes) > 1% indicates that a LEFT SHIFT is Present. MCV (mean corpuscular volume ) determinationOrdered By: Kelli Shea on 12-10-2024 MCV (RBC) [Entitic vol] 81.6 fL 80-94 [facility] Mean corpuscular hemoglobin (MCH) determinationOrdered By: Kelli Shea on 12-10-2024 MCH (RBC) [Entitic mass] 27.1 pg 27.0-32.0 [facility] Mean corpuscular hemoglobin concentration (MCHC) determinationOrdered By: Kelli Shea on 12-10-2024 MCHC (RBC) [Mass/Vol] 33.1 g/dL 32-36 [facility] Mean platelet volume determi nationOrdered By: Kelli Shea on 12-10-2024 Platelet mean volume (Bld) [Entitic vol] 11.4 fL 6.2-12.0 [facility] Monocyte percentageOrdered B y: Kelli Shea on 12-10-2024 Monocytes/100 WBC (Bld) 6.1 % 0-10 [facility] Neutrophil percentageOrdered By: Kelli Shea on 12-10-2024 Neutrophils/100 WBC (Bld) 57.9 % 47-70 [facility] Nucleated red blood cell per centageOrdered By: Kelli Shea on 12-10-2024 Nucleated RBC/100 WBC (Bld) [Ratio] 0 % 0-5 [facility] Platelet countOrdered By: Chris Shea on 12-10-2024 Platelets (Bld) [#/Vol] 199 10*3/uL 150-450 [facility] Potassium measurement (mass/ volume)Ordered By: Kelli Shea on 12-10-2024 Potassium (Unsp spec) [Mass/Vol] 4.2 mmol/L 3.3-5.1 [facility] RBC Auto (Bld) [#/Vol]Ordere d By: Kelli Shea on 12-10-2024 RBC (Bld) [#/Vol] 4.14 10*6/uL Low 4.6-6.2 [facility] Serum creatinine measurement (mass/volume)Ordered By: Kelli Shea on 12-10-2024 Creatinine [Mass/Vol] 0.89 mg/dL 0.70-1.20 [facility] Serum glucose measurement (m ass/volume)Ordered By: Kelli Shea on 12-10-2024 Glucose [Mass/Vol] 147 mg/dL High 70-99 [facility] Serum or plasma C reactive p rotein measurement (mass/volume)Ordered By: Kelli Shea on 12-10-2024 CRP [Mass/Vol] 19.40 mg/L High 0.0-3.0 [facility] Serum or plasma calcium everardo urement (mass/volume)Ordered By: Kelli Shea on 12-10-2024 Calcium [Mass/Vol] 9.3 mg/dL 7.6-11.0 [facility] Serum or plasma urea nitroge n measurement (mass/volume)Ordered By: Kelli Shea on 12-10-2024 Urea nitrogen [Mass/Vol] 29 mg/dL High 4-19 [facility] Sodium levelOrdered By: Nilay Shea on 12-10-2024 Sodium [Moles/Vol] 140 mmol/L 133-145 [facility] White blood cell (WBC) count Ordered By: Kelli Shea on 12-10-2024 WBC (Bld) [#/Vol] 7.9 10*3/uL 4.4-11.0 [facility] Brain/Head without Contrasto n 11-29-2024 Brain/Head without Contrast Normal [facility] Absolute lymphocyte countOrd ered By: Kelli Shea on 11-21-2024 Lymphocytes Auto (Unsp spec) [#/Vol] 2.30 10*3/uL 0.83-4.51 [facility] Absolute neutrophil countOrd ered By: Kelli Shea on 11-21-2024 Neutrophils (Bld) [#/Vol] 4.4 10*3/uL 2.0-7.7 [facility] Anion gap in Serum or Plasma Ordered By: Kelli Shea on 11-21-2024 Anion gap [Moles/Vol] 11 mmol/L 5-15 [facility] Automated lymphocyte count a s percentage of total leukocytesOrdered By: Kelli Shea on 11-21-2024 Lymphocytes/100 WBC Auto (Unsp spec) 30.3 % 19- [facility] BUN/creatinine ratioOrdered By: Kelli Shea on 11-21-2024 Urea nitrogen/Creatinine [Mass ratio] 36.6 mg/mg High 10-20 [facility] Basophil percentageOrdered B y: Kelli Shea on 11-21-2024 Basophils/100 WBC (Bld) 0.7 % 0-1 [facility] Bilirubin, totalOrdered By: Kelli Shea on 11-21-2024 Bilirubin [Mass/Vol] 0.46 mg/dL 0.00-1.30 [facility] CBC W/Diff, Automatedon Absolute Lymph 2.30 X10 3/uL Normal 0.83-4.51 [facility] Comment on above: Performed By: #### L 101.9900, L100.0100, L500.4050, [id number] ####[facility] [address] [place], [address] Absolute Neut 4.4 X10 3/uL Normal 2.0-7.7 [facility] Comment on above: Performed By: #### L 101.9900, L100.0100, L500.4050, [id number] ####[facility] [address] [place], [address] Basophils/100 WBC (Bld) 0.7 % Normal 0-1 [facility] Comment on above: Performed By: #### L 101.9900, L100.0100, L500.4050, [id number] ####[facility] [address] [place], [address] Eosinophils/100 WBC (Bld) 2.8 % Normal 0-5 [facility] Comment on above: Performed By: #### L 101.9900, L100.0100, L500.4050, [id number] ####[facility] [address] [place], [address] Erythrocyte distribution width (RBC) [Ratio] 14.6 % Normal 11.6-14.6 [facility] Comment on above: Performed By: #### L 101.9900, L100.0100, L500.4050, [id number] ####[facility] [address] [place], [address] Hematocrit (Bld) [Volume fraction] 38.4 % Low 40-54 [facility] Comment on above: Performed By: #### L 101.9900, L100.0100, L500.4050, [id number] ####[facility] [address] [place], [address] Hemoglobin (Bld) [Mass/Vol] 12.6 g/dL Low 13.0-16.5 [facility] Comment on above: Performed By: #### L 101.9900, L100.0100, L500.4050, [id number] ####[facility] [address] [place], [address] IG% 0.400 Normal 0.0-0.9 [facility] Comment on above: Result Comment: IG% - Immature Granulocytes (promyelocytes, myelocytes andmetamyelocytes) > 1% indicates that a LEFT SHIFT is Present. Performed By: #### L 101.9900, L100.0100, L500.4050, [id number] ####[facility] [address] [place], [address] Lymphocytes/100 WBC (Bld) 30.3 % Normal 19-41 [facility] Comment on above: Performed By: #### L 101.9900, L100.0100, L500.4050, [id number] ####[facility] [address], [address] MCH (RBC) [Entitic mass] 26.5 pg Low 27.0-32.0 [facility] Comment on above: Performed By: #### L 101.9900, L100.0100, L500.4050, [id number] ####[facility] [address], [address] MCHC (RBC) [Mass/Vol] 32.8 g/dL Normal 32-36 [facility] Comment on above: Performed By: #### L 101.9900, L100.0100, L500.4050, [id number] ####[facility] [address], [address] MCV (RBC) [Entitic vol] 80.8 fL Normal 80-94 [facility] Comment on above: Performed By: #### L 101.9900, L100.0100, L500.4050, [id number] ####[facility] [address], [address] Monocytes/100 WBC (Bld) 7.4 % Normal 0-10 [facility] Comment on above: Performed By: #### L 101.9900, L100.0100, L500.4050, [id number] ####[facility] [address], [address] Neutrophils/100 WBC (Bld) 58.4 % Normal 47-70 [facility] Comment on above: Performed By: #### L 101.9900, L100.0100, L500.4050, [id number] ####[facility] [address], [address] Nucleated RBC (Bld) [#/Vol] 0 10*3/uL Normal 0-5 [facility] Comment on above: Performed By: #### L 101.9900, L100.0100, L500.4050, [id number] ####[facility] [address], [address] Platelet mean volume (Bld) [Entitic vol] 11.1 fL Normal 6.2-12.0 [facility] Comment on above: Performed By: #### L 101.9900, L100.0100, L500.4050, [id number] ####[facility] [address], [address] Platelets (Bld) [#/Vol] 174 10*3/uL Normal 150-450 [facility] Comment on above: Performed By: #### L 101.9900, L100.0100, L500.4050, [id number] ####[facility] [address], [address] RBC (Bld) [#/Vol] 4.75 10*6/uL Normal 4.6-6.2 [facility] Comment on above: Performed By: #### L 101.9900, L100.0100, L500.4050, [id number] ####[facility] [address] [place], [address] RDW SD 42.1 fl Normal 35.1-43.9 [facility] Comment on above: Performed By: #### L 101.9900, L100.0100, L500.4050, [id number] ####[facility] [address], [address] WBC (Bld) [#/Vol] 7.6 10*3/uL Normal 4.4-11.0 [facility] Comment on above: Performed By: #### L 101.9900, L100.0100, L500.4050, [id number] ####[facility] [address], [address] Carbon dioxide, total [Moles /volume] in Central venous bloodOrdered By: Kelli Shea on 11-21-2024 CO2 [Moles/Vol] 29.3 mmol/L 21.0-32.0 [facility] Chloride assayOrdered By: Chris Shea on 11-21-2024 Chloride [Moles/Vol] 100 mmol/L 98-108 [facility] Comprehensive Metabolic Prof ilon 11-21-2024 GAP 11 Normal 5-15 [facility] Comment on above: Performed By: #### L 101.9900, L100.0100, L500.4050, [id number] ####[facility] [address], [address] Albumin [Mass/Vol] 3.4 g/dL Normal 3.4-4.8 [facility] Comment on above: Performed By: #### L 101.9900, L100.0100, L500.4050, [id number] ####[facility] [address], [address] Albumin/Globulin [Mass ratio] 1.0 {ratio} Normal 0.9-2.4 [facility] Comment on above: Performed By: #### L 101.9900, L100.0100, L500.4050, [id number] ####[facility] [address] [place], [address] ALK PHOS 120 U/L Normal 40-129 [facility] Comment on above: Performed By: #### L 101.9900, L100.0100, L500.4050, [id number] ####[facility] [address], [address] ALT [Catalytic activity/Vol] 16 U/L Normal <=46 [facility] Comment on above: Performed By: #### L 101.9900, L100.0100, L500.4050, [id number] ####[facility] [address] [place], [address] AST [Catalytic activity/Vol] 24 U/L Normal <=37 [facility] Comment on above: Performed By: #### L 101.9900, L100.0100, L500.4050, [id number] ####[facility] [address] [place], [address] Bilirubin [Mass/Vol] 0.46 mg/dL Normal 0.00-1.30 [facility] Comment on above: Performed By: #### L 101.9900, L100.0100, L500.4050, [id number] ####[facility] [address] [place], [address] BUN/CRE 36.6 RATIO High 10-20 [facility] Comment on above: Performed By: #### L 101.9900, L100.0100, L500.4050, [id number] ####[facility] [address] [place], [address] Calcium [Mass/Vol] 9.5 mg/dL Normal 7.6-11.0 [facility] Comment on above: Performed By: #### L 101.9900, L100.0100, L500.4050, [id number] ####[facility] [address] [place], [address] Chloride [Moles/Vol] 100 mmol/L Normal 98-108 [facility] Comment on above: Performed By: #### L 101.9900, L100.0100, L500.4050, [id number] ####[facility] [address] [place], [address] CO2 [Moles/Vol] 29.3 mmol/L Normal 21.0-32.0 [facility] Comment on above: Performed By: #### L 101.9900, L100.0100, L500.4050, [id number] ####[facility] [address], [address] Creatinine [Mass/Vol] 0.71 mg/dL Normal 0.70-1.20 [facility] Comment on above: Performed By: #### L 101.9900, L100.0100, L500.4050, [id number] ####[facility] [address], [address] GFR/1.73 sq M.predicted among non-blacks MDRD (S/P/Bld) [Vol rate/Area] 99 mL/min/{1.73_m2} Normal >60 [facility] Comment on above: Result Comment: mL/m in/1.73m2 CKD-EPI Creatinine Equation (2020) Performed By: #### L 101.9900, L100.0100, L500.4050, [id number] ####[facility] [address], [address] Globulin (S) [Mass/Vol] 3.5 g/dL Normal 2.2-4.2 [facility] Comment on above: Performed By: #### L 101.9900, L100.0100, L500.4050, [id number] ####[facility] [address] [place], [address] Glucose [Mass/Vol] 141 mg/dL High 70-99 [facility] Comment on above: Performed By: #### L 101.9900, L100.0100, L500.4050, [id number] ####[facility] [address], [address] Potassium [Moles/Vol] 4.1 mmol/L Normal 3.3-5.1 [facility] Comment on above: Performed By: #### L 101.9900, L100.0100, L500.4050, [id number] ####[facility] [address], [address] Sodium [Moles/Vol] 139 mmol/L Normal 133-145 [facility] Comment on above: Performed By: #### L 101.9900, L100.0100, L500.4050, [id number] ####[facility] [address] [place], [address] T PROT 6.8 g/dL Normal 5.9-8.4 [facility] Comment on above: Performed By: #### L 101.9900, L100.0100, L500.4050, [id number] ####[facility] [address], [address] Urea nitrogen [Mass/Vol] 26 mg/dL High 4-19 [facility] Comment on above: Performed By: #### L 101.9900, L100.0100, L500.4050, [id number] ####[facility] [address] [place], [address] Eosinophil percentageOrdered By: Kelli Shea on 11-21-2024 Eosinophils/100 WBC (Bld) 2.8 % 0-5 [facility] Erythrocyte Sed Rateon 11-21 SED RATE 27 mm/hr High 0-20 [facility] Comment on above: Performed By: #### L 101.9900, L100.0100, L500.4050, [id number] ####[facility] [address] [place], [address] Erythrocyte distribution wid th ratioOrdered By: Kelli Shea on 11-21-2024 Erythrocyte distribution width (RBC) [Ratio] 14.6 % 11.6-14.6 [facility] Erythrocyte distribution wid th standard deviationOrdered By: Kelli Shea on 11-21-2024 Erythrocyte distribution width (RBC) [Ratio] 42.1 fl 35.1-43.9 [facility] Erythrocyte sedimentation ra teOrdered By: Kelli Shea on 11-21-2024 ESR (Bld) [Velocity] 27 mm/h High 0-20 [facility] Glomerular filtration rate ( GFR) estimation/1.73 sq m using serum, plasma, or whole bOrdered By: Kelli Shea on 11-21-2024 GFR/1.73 sq M.predicted among non-blacks MDRD (S/P/Bld) [Vol rate/Area] 99 mL/min/{1.73_m2} >60 [facility] Comment on above: mL/min/1.73m2 CKD-EP I Creatinine Equation (2020) Hematocrit Auto (Bld) [Volum e fraction]Ordered By: Kelli Shea on 11-21-2024 Hematocrit (Bld) [Volume fraction] 38.4 % Low 40-54 [facility] Hemoglobin measurementOrdere d By: Kelli Shea on 11-21-2024 Hemoglobin (Bld) [Mass/Vol] 12.6 g/dL Low 13.0-16.5 [facility] Immature granulocytes/100 WB C Auto (Bld)Ordered By: Kelli Shea on 11-21-2024 Immature granulocytes/100 WBC (Bld) 0.400 % 0.0-0.9 [facility] Comment on above: IG% - Immature Granu locytes (promyelocytes, myelocytes and metamyelocytes) > 1% indicates that a LEFT SHIFT is Present. Laboratory - Chemistry and C hemistry - challengeOrdered By: Kelli Shea on 11-21-2024 AST [Catalytic activity/Vol] 24 U/L <38 [facility] MCV (mean corpuscular volume ) determinationOrdered By: Kelli Shea on 11-21-2024 MCV (RBC) [Entitic vol] 80.8 fL 80-94 [facility] Mean corpuscular hemoglobin (MCH) determinationOrdered By: Kelli Shea on 11-21-2024 MCH (RBC) [Entitic mass] 26.5 pg Low 27.0-32.0 [facility] Mean corpuscular hemoglobin concentration (MCHC) determinationOrdered By: Kelli Shea on 11-21-2024 MCHC (RBC) [Mass/Vol] 32.8 g/dL 32-36 [facility] Mean platelet volume determi nationOrdered By: Kelli Shea on 11-21-2024 Platelet mean volume (Bld) [Entitic vol] 11.1 fL 6.2-12.0 [facility] Monocyte percentageOrdered B y: Kelli Shea on 11-21-2024 Monocytes/100 WBC (Bld) 7.4 % 0-10 [facility] Neutrophil percentageOrdered By: Kelli Shea on 11-21-2024 Neutrophils/100 WBC (Bld) 58.4 % 47-70 [facility] No Panel InformationOrdered By: Kelli Shea on 11-21-2024 24 U/L <38 [facility] Nucleated red blood cell per centageOrdered By: Kelli Shea on 11-21-2024 Nucleated RBC/100 WBC (Bld) [Ratio] 0 % 0-5 [facility] Platelet countOrdered By: Chris Shea on 11-21-2024 Platelets (Bld) [#/Vol] 174 10*3/uL 150-450 [facility] Potassium measurement (mass/ volume)Ordered By: Kelli Shea on 11-21-2024 Potassium (Unsp spec) [Mass/Vol] 4.1 mmol/L 3.3-5.1 [facility] RBC Auto (Bld) [#/Vol]Ordere d By: Kelli Shea on 11-21-2024 RBC (Bld) [#/Vol] 4.75 10*6/uL 4.6-6.2 [facility] Serum creatinine measurement (mass/volume)Ordered By: Kelli Shea on 11-21-2024 Creatinine [Mass/Vol] 0.71 mg/dL 0.70-1.20 [facility] Serum globulin measurementOr dered By: Kelli Shea on 11-21-2024 Globulin (S) [Mass/Vol] 3.5 g/dL 2.2-4.2 [facility] Serum glucose measurement (m ass/volume)Ordered By: Kelli Shea on 11-21-2024 Glucose [Mass/Vol] 141 mg/dL High 70-99 [facility] Serum or plasma alanine herrmann otransferase (ALT) measurementOrdered By: Kelli Shea on 11-21-2024 ALT [Catalytic activity/Vol] 16 U/L <47 [facility] Serum or plasma albumin everardo urement (mass/volume)Ordered By: Kleli Shea on 11-21-2024 Albumin [Mass/Vol] 3.4 g/dL 3.4-4.8 [facility] Serum or plasma albumin/glob ulin mass ratioOrdered By: Kelli Shea on 11-21-2024 Albumin/Globulin [Mass ratio] 1.0 {ratio} 0.9-2.4 [facility] Serum or plasma alkaline kaiser sphatase measurementOrdered By: Kelli Shea on 11-21-2024 ALP [Catalytic activity/Vol] 120 U/L 40-129 [facility] Serum or plasma calcium everardo urement (mass/volume)Ordered By: Kelli Shea on 11-21-2024 Calcium [Mass/Vol] 9.5 mg/dL 7.6-11.0 [facility] Serum or plasma urea nitroge n measurement (mass/volume)Ordered By: Kelli Shea on 11-21-2024 Urea nitrogen [Mass/Vol] 26 mg/dL High 4-19 [facility] Sodium levelOrdered By: Nilay Shea on 11-21-2024 Sodium [Moles/Vol] 139 mmol/L 133-145 [facility] Total proteinOrdered By: Tawanda Shea on 11-21-2024 Protein [Mass/Vol] 6.8 g/dL 5.9-8.4 [facility] Trough vancomycin levelOrder ed By: Kelli Shea on 11-21-2024 Vancomycin trough [Mass/Vol] 17.7 ug/mL High 5.0-15.0 [facility] Comment on above: Recommended goal tro ugh [...] therapy recommended for serious lifethreatening infections include:- Cilrrkctsd-Pcuolybpwegv-Sipjlfihm (Ventilator/Healtcare Associated)-Sepsis PLEASE CONTACT PHARMACY SERVICES (#[id number]) FOR INTERPRETATIONOF RESULTS. Vancomycin, Trough Levelon 0 11-21-2024 VANCO, TROUGH 17.7 ug/mL High 5.0-15.0 [facility] Comment on above: Order Comment: 0000 Result [...] therapy recommended for serious lifethreatening infections include:- Davnstvlbj-Uutyzndpshjg-Ejklwagjr (Ventilator/Healtcare Associated)-SepsisPLEASE CONTACT PHARMACY SERVICES (#[id number]) FOR INTERPRETATIONOF RESULTS. Performed By: #### L 101.9900, L100.0100, L500.4050, L501.8820 ####[facility] [address] [place], [address] White blood cell (WBC) count Ordered By: Kelli Shea on 11-21-2024 WBC (Bld) [#/Vol] 7.6 10*3/uL 4.4-11.0 [facility] Absolute lymphocyte countOrd ered By: Kelli Shea on 11-14-2024 Lymphocytes Auto (Unsp spec) [#/Vol] 2.69 10*3/uL 0.83-4.51 [facility] Absolute neutrophil countOrd ered By: Kelli Shea on 11-14-2024 Neutrophils (Bld) [#/Vol] 3.1 10*3/uL 2.0-7.7 [facility] Anion gap in Serum or Plasma Ordered By: Kelli Shea on 11-14-2024 Anion gap [Moles/Vol] 12 mmol/L - [facility] Automated lymphocyte count a s percentage of total leukocytesOrdered By: Kelli Shae on 11-14-2024 Lymphocytes/100 WBC Auto (Unsp spec) 40.0 % [facility] BUN/creatinine ratioOrdered By: Kelli Shea on 11-14-2024 Urea nitrogen/Creatinine [Mass ratio] 46.0 mg/mg High 10- [facility] Basophil percentageOrdered B y: Kelli Shea on 11-14-2024 Basophils/100 WBC (Bld) 0.7 % 0-1 [facility] Bilirubin, totalOrdered By: Kelli Shea on 11-14-2024 Bilirubin [Mass/Vol] 0.42 mg/dL 0.00-1.30 [facility] CBC W/Diff, Automatedon 10-19 Absolute Lymph 2.69 X10 3/uL Normal 0.83-4.51 [facility] Comment on above: Order Comment: 208 Performed By: #### L 501.6710, L100.0100, L101.9900, L500.4050, L501.8820 ####[facility] [address] [place], [address] Absolute Neut 3.1 X10 3/uL Normal 2.0-7.7 [facility] Comment on above: Order Comment: 208 Performed By: #### L 501.6710, L100.0100, L101.9900, L500.4050, [id number] ####[facility] [address] [address], [address] Basophils/100 WBC (Bld) 0.7 % Normal 0-1 [facility] Comment on above: Order Comment: 208 Performed By: #### L 501.6710, L100.0100, L101.9900, L500.4050, L501.8820 ####[facility] [address] [place], [address] Eosinophils/100 WBC (Bld) 4.2 % Normal 0-5 [facility] Comment on above: Order Comment: 208 Performed By: #### L 501.6710, L100.0100, L101.9900, L500.4050, L501.8820 ####[facility] [address] [place], [address] Erythrocyte distribution width (RBC) [Ratio] 14.4 % Normal 11.6-14.6 [facility] Comment on above: Order Comment: 208 Performed By: #### L 501.6710, L100.0100, L101.9900, L500.4050, L501.8820 ####[facility] [address] [place], [address] Hematocrit (Bld) [Volume fraction] 36.6 % Low 40-54 [facility] Comment on above: Order Comment: 208 Performed By: #### L 501.6710, L100.0100, L101.9900, L500.4050, L501.8820 ####[facility] [address] [place], [address] Hemoglobin (Bld) [Mass/Vol] 11.9 g/dL Low 13.0-16.5 [facility] Comment on above: Order Comment: 208 Performed By: #### L 501.6710, L100.0100, L101.9900, L500.4050, L501.8820 ####[facility] [address] [place], [address] IG% 0.100 Normal 0.0-0.9 [facility] Comment on above: Order Comment: 208 Result Comment: IG% - Immature Granulocytes (promyelocytes, myelocytes andmetamyelocytes) > 1% indicates that a LEFT SHIFT is Present. Performed By: #### L 501.6710, L100.0100, L101.9900, L500.4050, L501.8820 ####[facility] [address] [place], [address] Lymphocytes/100 WBC (Bld) 40.0 % Normal 19-41 [facility] Comment on above: Order Comment: 208 Performed By: #### L 501.6710, L100.0100, L101.9900, L500.4050, L501.8820 ####[facility] [address] [place], [address] MCH (RBC) [Entitic mass] 26.6 pg Low 27.0-32.0 [facility] Comment on above: Order Comment: 208 Performed By: #### L 501.6710, L100.0100, L101.9900, L500.4050, L501.8820 ####[facility] [address] [place], [address] MCHC (RBC) [Mass/Vol] 32.5 g/dL Normal 32-36 [facility] Comment on above: Order Comment: 208 Performed By: #### L 501.6710, L100.0100, L101.9900, L500.4050, L501.8820 ####[facility] [address] [place], [address] MCV (RBC) [Entitic vol] 81.9 fL Normal 80-94 [facility] Comment on above: Order Comment: 208 Performed By: #### L 501.6710, L100.0100, L101.9900, L500.4050, L501.8820 ####[facility] [address] [place], [address] Monocytes/100 WBC (Bld) 8.5 % Normal 0-10 [facility] Comment on above: Order Comment: 208 Performed By: #### L 501.6710, L100.0100, L101.9900, L500.4050, L501.8820 ####[facility] [address] [place], [address] Neutrophils/100 WBC (Bld) 46.5 % Low 47-70 [facility] Comment on above: Order Comment: 208 Performed By: #### L 501.6710, L100.0100, L101.9900, L500.4050, L501.8820 ####[facility] [address] [place], [address] Nucleated RBC (Bld) [#/Vol] 0 10*3/uL Normal 0-5 [facility] Comment on above: Order Comment: 208 Performed By: #### L 501.6710, L100.0100, L101.9900, L500.4050, L501.8820 ####[facility] [address] [place], [address] Platelet mean volume (Bld) [Entitic vol] 11.3 fL Normal 6.2-12.0 [facility] Comment on above: Order Comment: 208 Performed By: #### L 501.6710, L100.0100, L101.9900, L500.4050, L501.8820 ####[facility] [address] [place], [address] Platelets (Bld) [#/Vol] 199 10*3/uL Normal 150-450 [facility] Comment on above: Order Comment: 208 Performed By: #### L 501.6710, L100.0100, L101.9900, L500.4050, L501.8820 ####[facility] [address] [place], [address] RBC (Bld) [#/Vol] 4.47 10*6/uL Low 4.6-6.2 [facility] Comment on above: Order Comment: 208 Performed By: #### L 501.6710, L100.0100, L101.9900, L500.4050, L501.8820 ####[facility] [address] [place], [address] RDW SD 41.3 fl Normal 35.1-43.9 [facility] Comment on above: Order Comment: 208 Performed By: #### L 501.6710, L100.0100, L101.9900, L500.4050, L501.8820 ####[facility] [address] [place], [address] WBC (Bld) [#/Vol] 6.7 10*3/uL Normal 4.4-11.0 [facility] Comment on above: Order Comment: 208 Performed By: #### L 501.6710, L100.0100, L101.9900, L500.4050, L501.8820 ####[facility] [address] [place], [address] CRPon 11-14-2024 C-REACTIVE PROT 12.40 mg/L High 0.0-3.0 [facility] Comment on above: Order Comment: 208 Performed By: #### L 501.6710, L100.0100, L101.9900, L500.4050, L501.8820 ####[facility] [address] [place], [address] Carbon dioxide, total [Moles /volume] in Central venous bloodOrdered By: Kelli Shea on 11-14-2024 CO2 [Moles/Vol] 26.9 mmol/L 21.0-32.0 [facility] Chloride assayOrdered By: Chris Shea on 11-14-2024 Chloride [Moles/Vol] 103 mmol/L 98-108 [facility] Comprehensive Metabolic Prof ilon 11-14-2024 Albumin [Mass/Vol] 3.4 g/dL Normal 3.4-4.8 [facility] Comment on above: Order Comment: 208 Performed By: #### L 501.6710, L100.0100, L101.9900, L500.4050, L501.8820 ####[facility] [address] [place], [address] Albumin/Globulin [Mass ratio] 1.0 {ratio} Normal 0.9-2.4 [facility] Comment on above: Order Comment: 208 Performed By: #### L 501.6710, L100.0100, L101.9900, L500.4050, L501.8820 ####[facility] [address] [place], [address] ALK PHOS 110 U/L Normal 40-129 [facility] Comment on above: Order Comment: 208 Performed By: #### L 501.6710, L100.0100, L101.9900, L500.4050, L501.8820 ####[facility] [address] [place], [address] ALT [Catalytic activity/Vol] 18 U/L Normal <=46 [facility] Comment on above: Order Comment: 208 Performed By: #### L 501.6710, L100.0100, L101.9900, L500.4050, L501.8820 ####[facility] [address] [place], [address] AST [Catalytic activity/Vol] 23 U/L Normal <=37 [facility] Comment on above: Order Comment: 208 Performed By: #### L 501.6710, L100.0100, L101.9900, L500.4050, L501.8820 ####[facility] [address] [place], [address] Bilirubin [Mass/Vol] 0.42 mg/dL Normal 0.00-1.30 [facility] Comment on above: Order Comment: 208 Performed By: #### L 501.6710, L100.0100, L101.9900, L500.4050, L501.8820 ####[facility] [address] [place], [address] BUN/CRE 46.0 RATIO High 10-20 [facility] Comment on above: Order Comment: 208 Performed By: #### L 501.6710, L100.0100, L101.9900, L500.4050, L501.8820 ####[facility] [address] [place], [address] Calcium [Mass/Vol] 9.6 mg/dL Normal 7.6-11.0 [facility] Comment on above: Order Comment: 208 Performed By: #### L 501.6710, L100.0100, L101.9900, L500.4050, L501.8820 ####[facility] [address] [place], [address] Chloride [Moles/Vol] 103 mmol/L Normal 98-108 [facility] Comment on above: Order Comment: 208 Performed By: #### L 501.6710, L100.0100, L101.9900, L500.4050, L501.8820 ####[facility] [address] [place], [address] CO2 [Moles/Vol] 26.9 mmol/L Normal 21.0-32.0 [facility] Comment on above: Order Comment: 208 Performed By: #### L 501.6710, L100.0100, L101.9900, L500.4050, L501.8820 ####[facility] [address] [place], [address] Creatinine [Mass/Vol] 0.67 mg/dL Low 0.70-1.20 [facility] Comment on above: Order Comment: 208 Performed By: #### L 501.6710, L100.0100, L101.9900, L500.4050, L501.8820 ####[facility] [address] [place], [address] GAP 12 Normal 5-15 [facility] Comment on above: Order Comment: 208 Performed By: #### L 501.6710, L100.0100, L101.9900, L500.4050, L501.8820 ####[facility] [address] [place], [address] GFR/1.73 sq M.predicted among non-blacks MDRD (S/P/Bld) [Vol rate/Area] 101 mL/min/{1.73_m2} Normal >60 [facility] Comment on above: Order Comment: 208 Result Comment: mL/m in/1.73m2 CKD-EPI Creatinine Equation (2020) Performed By: #### L 501.6710, L100.0100, L101.9900, L500.4050, L501.8820 ####[facility] [address] [place], [address] Globulin (S) [Mass/Vol] 3.3 g/dL Normal 2.2-4.2 [facility] Comment on above: Order Comment: 208 Performed By: #### L 501.6710, L100.0100, L101.9900, L500.4050, L501.8820 ####[facility] [address] [place], [address] Glucose [Mass/Vol] 124 mg/dL High 70-99 [facility] Comment on above: Order Comment: 208 Performed By: #### L 501.6710, L100.0100, L101.9900, L500.4050, L501.8820 ####[facility] [address] [place], [address] Potassium [Moles/Vol] 4.1 mmol/L Normal 3.3-5.1 [facility] Comment on above: Order Comment: 208 Performed By: #### L 501.6710, L100.0100, L101.9900, L500.4050, L501.8820 ####[facility] [address] [place], [address] Sodium [Moles/Vol] 141 mmol/L Normal 133-145 [facility] Comment on above: Order Comment: 208 Performed By: #### L 501.6710, L100.0100, L101.9900, L500.4050, L501.8820 ####[facility] [address] [place], [address] T PROT 6.7 g/dL Normal 5.9-8.4 [facility] Comment on above: Order Comment: 208 Performed By: #### L 501.6710, L100.0100, L101.9900, L500.4050, L501.8820 ####[facility] [address] [place], [address] Urea nitrogen [Mass/Vol] 31 mg/dL High 4-19 [facility] Comment on above: Order Comment: 208 Performed By: #### L 501.6710, L100.0100, L101.9900, L500.4050, L501.8820 ####[facility] [address] [place], [address] Eosinophil percentageOrdered By: Kelli Shea on 11-14-2024 Eosinophils/100 WBC (Bld) 4.2 % 0-5 [facility] Erythrocyte Sed Rateon 11-14 SED RATE 39 mm/hr High 0-20 [facility] Comment on above: Order Comment: 208 Performed By: #### L 501.6710, L100.0100, L101.9900, L500.4050, L501.8820 ####[facility] [address] [place], [address] Erythrocyte distribution wid th ratioOrdered By: Kelli Shea on 11-14-2024 Erythrocyte distribution width (RBC) [Ratio] 14.4 % 11.6-14.6 [facility] Erythrocyte distribution wid th standard deviationOrdered By: Kelli Shea on 11-14-2024 Erythrocyte distribution width (RBC) [Ratio] 41.3 fl 35.1-43.9 [facility] Erythrocyte sedimentation ra teOrdered By: Kelli Shea on 11-14-2024 ESR (Bld) [Velocity] 39 mm/h High 0-20 [facility] Glomerular filtration rate ( GFR) estimation/1.73 sq m using serum, plasma, or whole bOrdered By: Kelli Shea on 11-14-2024 GFR/1.73 sq M.predicted among non-blacks MDRD (S/P/Bld) [Vol rate/Area] 101 mL/min/{1.73_m2} >60 [facility] Comment on above: mL/min/1.73m2 CKD-EP I Creatinine Equation (2020) Hematocrit Auto (Bld) [Volum e fraction]Ordered By: Kelli Shea on 11-14-2024 Hematocrit (Bld) [Volume fraction] 36.6 % Low 40-54 [facility] Hemoglobin measurementOrdere d By: Kelli Shea on 11-14-2024 Hemoglobin (Bld) [Mass/Vol] 11.9 g/dL Low 13.0-16.5 [facility] Immature granulocytes/100 WB C Auto (Bld)Ordered By: Kelli Shea on 11-14-2024 Immature granulocytes/100 WBC (Bld) 0.100 % 0.0-0.9 [facility] Comment on above: IG% - Immature Granu locytes (promyelocytes, myelocytes and metamyelocytes) > 1% indicates that a LEFT SHIFT is Present. Laboratory - Chemistry and C hemistry - challengeOrdered By: Kelli Shea on 11-14-2024 AST [Catalytic activity/Vol] 23 U/L <38 [facility] MCV (mean corpuscular volume ) determinationOrdered By: Kelli Shea on 11-14-2024 MCV (RBC) [Entitic vol] 81.9 fL 80-94 [facility] Mean corpuscular hemoglobin (MCH) determinationOrdered By: Kelli Shea on 11-14-2024 MCH (RBC) [Entitic mass] 26.6 pg Low 27.0-32.0 [facility] Mean corpuscular hemoglobin concentration (MCHC) determinationOrdered By: Kelli Shea on 11-14-2024 MCHC (RBC) [Mass/Vol] 32.5 g/dL 32-36 [facility] Mean platelet volume determi nationOrdered By: Kelli Shea on 11-14-2024 Platelet mean volume (Bld) [Entitic vol] 11.3 fL 6.2-12.0 [facility] Monocyte percentageOrdered B y: Kelli Shea on 11-14-2024 Monocytes/100 WBC (Bld) 8.5 % 0-10 [facility] Neutrophil percentageOrdered By: Kelli Shea on 11-14-2024 Neutrophils/100 WBC (Bld) 46.5 % Low 47-70 [facility] No Panel InformationOrdered By: Kelli Shea on 11-14-2024 23 U/L <38 [facility] Nucleated red blood cell per centageOrdered By: Kelli Shea on 11-14-2024 Nucleated RBC/100 WBC (Bld) [Ratio] 0 % 0-5 [facility] Platelet countOrdered By: Chris Shea on 11-14-2024 Platelets (Bld) [#/Vol] 199 10*3/uL 150-450 [facility] Potassium measurement (mass/ volume)Ordered By: Kelli Shea on 11-14-2024 Potassium (Unsp spec) [Mass/Vol] 4.1 mmol/L 3.3-5.1 [facility] RBC Auto (Bld) [#/Vol]Ordere d By: Kelli Shea on 11-14-2024 RBC (Bld) [#/Vol] 4.47 10*6/uL Low 4.6-6.2 [facility] Serum creatinine measurement (mass/volume)Ordered By: Kelli Shea on 11-14-2024 Creatinine [Mass/Vol] 0.67 mg/dL Low 0.70-1.20 [facility] Serum globulin measurementOr dered By: Kelli Shea on 11-14-2024 Globulin (S) [Mass/Vol] 3.3 g/dL 2.2-4.2 [facility] Serum glucose measurement (m ass/volume)Ordered By: Kelli Shea on 11-14-2024 Glucose [Mass/Vol] 124 mg/dL High 70-99 [facility] Serum or plasma C reactive p rotein measurement (mass/volume)Ordered By: Kelli Shea on 11-14-2024 CRP [Mass/Vol] 12.40 mg/L High 0.0-3.0 [facility] Serum or plasma alanine herrmann otransferase (ALT) measurementOrdered By: Kelli Shea on 11-14-2024 ALT [Catalytic activity/Vol] 18 U/L <47 [facility] Serum or plasma albumin everardo urement (mass/volume)Ordered By: Kelli Shea on 11-14-2024 Albumin [Mass/Vol] 3.4 g/dL 3.4-4.8 [facility] Serum or plasma albumin/glob ulin mass ratioOrdered By: Kelli Shea on 11-14-2024 Albumin/Globulin [Mass ratio] 1.0 {ratio} 0.9-2.4 [facility] Serum or plasma alkaline kaiser sphatase measurementOrdered By: Kelli Shea on 11-14-2024 ALP [Catalytic activity/Vol] 110 U/L 40-129 [facility] Serum or plasma calcium everardo urement (mass/volume)Ordered By: Kelli Shea on 11-14-2024 Calcium [Mass/Vol] 9.6 mg/dL 7.6-11.0 [facility] Serum or plasma urea nitroge n measurement (mass/volume)Ordered By: Kelli Shea on 11-14-2024 Urea nitrogen [Mass/Vol] 31 mg/dL High 4-19 [facility] Sodium levelOrdered By: Nilay Shea on 11-14-2024 Sodium [Moles/Vol] 141 mmol/L 133-145 [facility] Total proteinOrdered By: Tawanda Shea on 11-14-2024 Protein [Mass/Vol] 6.7 g/dL 5.9-8.4 [facility] Trough vancomycin levelOrder ed By: Kelli Shea on 11-14-2024 Vancomycin trough [Mass/Vol] 17.6 ug/mL High 5.0-15.0 [facility] Comment on above: Recommended goal tro ugh [...] therapy recommended for serious lifethreatening infections include:- Updpagklsm-Gbyompeuxjoz-Qgghbkank (Ventilator/Healtcare Associated)-Sepsis PLEASE CONTACT PHARMACY SERVICES (#[id number]) FOR INTERPRETATIONOF RESULTS. Vancomycin, Trough Levelon 0 11-14-2024 VANCO, TROUGH 17.6 ug/mL High 5.0-15.0 [facility] Comment on above: Order Comment: Result Comment: [...] therapy recommended for serious lifethreatening infections include:- Avyyjpqsik-Kqqjbprqnerp-Txnwfddvn (Ventilator/Healtcare Associated)-SepsisPLEASE CONTACT PHARMACY SERVICES (#[id number]) FOR INTERPRETATIONOF RESULTS. Performed By: #### L 501.6710, L100.0100, L101.9900, L500.4050, L501.8820 ####[facility] [address] [place], [place], [id number] White blood cell (WBC) count Ordered By: Kelli Shea on 11-14-2024 WBC (Bld) [#/Vol] 6.7 10*3/uL 4.4-11.0 [facility] Absolute lymphocyte countOrd ered By: Kelli Shea on 11-07-2024 Lymphocytes Auto (Unsp spec) [#/Vol] 2.39 10*3/uL 0.83-4.51 [facility] Absolute neutrophil countOrd ered By: Kelli Shea on 11-07-2024 Neutrophils (Bld) [#/Vol] 3.3 10*3/uL 2.0-7.7 [facility] Anion gap in Serum or Plasma Ordered By: Kelli Shea on 11-07-2024 Anion gap [Moles/Vol] 11 mmol/L 5- [facility] Automated lymphocyte count a s percentage of total leukocytesOrdered By: Kelli Shea on 11-07-2024 Lymphocytes/100 WBC Auto (Unsp spec) 36.4 % - [facility] BUN/creatinine ratioOrdered By: Kelli Shea on 11-07-2024 Urea nitrogen/Creatinine [Mass ratio] 38.8 mg/mg High 10- [facility] Basophil percentageOrdered B y: Kelli Shea on 11-07-2024 Basophils/100 WBC (Bld) 0.9 % 0-1 [facility] Bilirubin, totalOrdered By: Kelli Shea on 11-07-2024 Bilirubin [Mass/Vol] 0.51 mg/dL 0.00-1.30 [facility] CBC W/Diff, Automatedon 10-19 Absolute Lymph 2.39 X10 3/uL Normal 0.83-4.51 [facility] Comment on above: Order Comment: 208 Performed By: #### L 101.9900, L100.0100, L501.8820, L501.6710, L500.4050 ####[facility] [address] [place], [place], [address] Absolute Neut 3.3 X10 3/uL Normal 2.0-7.7 [facility] Comment on above: Order Comment: 208 Performed By: #### L 101.9900, L100.0100, L501.8820, L501.6710, L500.4050 ####[facility] [address] [place], [address] Basophils/100 WBC (Bld) 0.9 % Normal 0-1 [facility] Comment on above: Order Comment: 208 Performed By: #### L 101.9900, L100.0100, L501.8820, L501.6710, L500.4050 ####[facility] [address] [place], [address] Eosinophils/100 WBC (Bld) 5.5 % High 0-5 [facility] Comment on above: Order Comment: 208 Performed By: #### L 101.9900, L100.0100, L501.8820, L501.6710, L500.4050 ####[facility] [address], [address] Erythrocyte distribution width (RBC) [Ratio] 14.1 % Normal 11.6-14.6 [facility] Comment on above: Order Comment: 208 Performed By: #### L 101.9900, L100.0100, L501.8820, L501.6710, L500.4050 ####[facility] [address] [place], [address] Hematocrit (Bld) [Volume fraction] 36.4 % Low 40-54 [facility] Comment on above: Order Comment: 208 Performed By: #### L 101.9900, L100.0100, L501.8820, L501.6710, L500.4050 ####[facility] [address] [place], [address] Hemoglobin (Bld) [Mass/Vol] 11.8 g/dL Low 13.0-16.5 [facility] Comment on above: Order Comment: 208 Performed By: #### L 101.9900, L100.0100, L501.8820, L501.6710, L500.4050 ####[facility] [address] [place], [address] IG% 0.300 Normal 0.0-0.9 [facility] Comment on above: Order Comment: 208 Result Comment: IG% - Immature Granulocytes (promyelocytes, myelocytes andmetamyelocytes) > 1% indicates that a LEFT SHIFT is Present. Performed By: #### L 101.9900, L100.0100, L501.8820, L501.6710, L500.4050 ####[facility] [address], [address] Lymphocytes/100 WBC (Bld) 36.4 % Normal 19-41 [facility] Comment on above: Order Comment: 208 Performed By: #### L 101.9900, L100.0100, L501.8820, L501.6710, L500.4050 ####[facility] [address] [place], [address] MCH (RBC) [Entitic mass] 26.3 pg Low 27.0-32.0 [facility] Comment on above: Order Comment: 208 Performed By: #### L 101.9900, L100.0100, L501.8820, L501.6710, L500.4050 ####[facility] [address] [place], [address] MCHC (RBC) [Mass/Vol] 32.4 g/dL Normal 32-36 [facility] [facility] Comment on above: Order Comment: 208 Performed By: #### L 101.9900, L100.0100, L501.8820, L501.6710, L500.4050 ####[facility] [address] [place], [address] MCV (RBC) [Entitic vol] 81.1 fL Normal 80-94 [facility] Comment on above: Order Comment: 208 Performed By: #### L 101.9900, L100.0100, L501.8820, L501.6710, L500.4050 ####[facility] [address] [place], [address] Monocytes/100 WBC (Bld) 6.9 % Normal 0-10 [facility] Comment on above: Order Comment: 208 Performed By: #### L 101.9900, L100.0100, L501.8820, L501.6710, L500.4050 ####[facility] [address] [place], [address] Neutrophils/100 WBC (Bld) 50.0 % Normal 47-70 [facility] Comment on above: Order Comment: 208 Performed By: #### L 101.9900, L100.0100, L501.8820, L501.6710, L500.4050 ####[facility] [address] [place], [address] Nucleated RBC (Bld) [#/Vol] 0 10*3/uL Normal 0-5 [facility] Comment on above: Order Comment: 208 Performed By: #### L 101.9900, L100.0100, L501.8820, L501.6710, L500.4050 ####[facility] [address] [place], [address] Platelet mean volume (Bld) [Entitic vol] 10.8 fL Normal 6.2-12.0 [facility] Comment on above: Order Comment: 208 Performed By: #### L 101.9900, L100.0100, L501.8820, L501.6710, L500.4050 ####[facility] [address], [address] Platelets (Bld) [#/Vol] 239 10*3/uL Normal 150-450 [facility] Comment on above: Order Comment: 208 Performed By: #### L 101.9900, L100.0100, L501.8820, L501.6710, L500.4050 ####[facility] [address], [address] RBC (Bld) [#/Vol] 4.49 10*6/uL Low 4.6-6.2 [facility] Comment on above: Order Comment: 208 Performed By: #### L 101.9900, L100.0100, L501.8820, L501.6710, L500.4050 ####[facility] [address], [address] RDW SD 41.3 fl Normal 35.1-43.9 [facility] Comment on above: Order Comment: 208 Performed By: #### L 101.9900, L100.0100, L501.8820, L501.6710, L500.4050 ####[facility] [address], [address] WBC (Bld) [#/Vol] 6.6 10*3/uL Normal 4.4-11.0 [facility] Comment on above: Order Comment: 208 Performed By: #### L 101.9900, L100.0100, L501.8820, L501.6710, L500.4050 ####[facility] [address], [address] CRPon 11-07-2024 C-REACTIVE PROT 10.60 mg/L High 0.0-3.0 [facility] Comment on above: Order Comment: 208 Performed By: #### L 101.9900, L100.0100, L501.8820, L501.6710, L500.4050 ####[facility] [address], [address] Carbon dioxide, total [Moles /volume] in Central venous bloodOrdered By: Kelli Shea on 11-07-2024 CO2 [Moles/Vol] 27.4 mmol/L 21.0-32.0 [facility] Chloride assayOrdered By: Chris Shea on 11-07-2024 Chloride [Moles/Vol] 101 mmol/L 98-108 [facility] Comprehensive Metabolic Prof ilon 11-07-2024 Albumin [Mass/Vol] 3.3 g/dL Low 3.4-4.8 [facility] Comment on above: Order Comment: 208 Performed By: #### L 101.9900, L100.0100, L501.8820, L501.6710, L500.4050 ####[facility] [address], [address] Albumin/Globulin [Mass ratio] 0.9 {ratio} Normal 0.9-2.4 [facility] Comment on above: Order Comment: 208 Performed By: #### L 101.9900, L100.0100, L501.8820, L501.6710, L500.4050 ####[facility] [address] [place], [address] ALK PHOS 111 U/L Normal 40-129 [facility] Comment on above: Order Comment: 208 Performed By: #### L 101.9900, L100.0100, L501.8820, L501.6710, L500.4050 ####[facility] [address], [address] ALT [Catalytic activity/Vol] 26 U/L Normal <=46 [facility] Comment on above: Order Comment: 208 Performed By: #### L 101.9900, L100.0100, L501.8820, L501.6710, L500.4050 ####[facility] [address], [address] AST [Catalytic activity/Vol] 34 U/L Normal <=37 [facility] Comment on above: Order Comment: 208 Performed By: #### L 101.9900, L100.0100, L501.8820, L501.6710, L500.4050 ####[facility] [address] [place], [address] Bilirubin [Mass/Vol] 0.51 mg/dL Normal 0.00-1.30 [facility] Comment on above: Order Comment: 208 Performed By: #### L 101.9900, L100.0100, L501.8820, L501.6710, L500.4050 ####[facility] [address], [address] BUN/CRE 38.8 RATIO High 10-20 [facility] Comment on above: Order Comment: 208 Performed By: #### L 101.9900, L100.0100, L501.8820, L501.6710, L500.4050 ####[facility] [address], [address] Calcium [Mass/Vol] 9.8 mg/dL Normal 7.6-11.0 [facility] Comment on above: Order Comment: 208 Performed By: #### L 101.9900, L100.0100, L501.8820, L501.6710, L500.4050 ####[facility] [address], [address] Chloride [Moles/Vol] 101 mmol/L Normal 98-108 [facility] Comment on above: Order Comment: 208 Performed By: #### L 101.9900, L100.0100, L501.8820, L501.6710, L500.4050 ####[facility] [address] [place], [address] CO2 [Moles/Vol] 27.4 mmol/L Normal 21.0-32.0 [facility] Comment on above: Order Comment: 208 Performed By: #### L 101.9900, L100.0100, L501.8820, L501.6710, L500.4050 ####[facility] [address], [address] Creatinine [Mass/Vol] 0.66 mg/dL Low 0.70-1.20 [facility] Comment on above: Order Comment: 208 Performed By: #### L 101.9900, L100.0100, L501.8820, L501.6710, L500.4050 ####[facility] [address] [place], [address] GAP 11 Normal 5-15 [facility] Comment on above: Order Comment: 208 Performed By: #### L 101.9900, L100.0100, L501.8820, L501.6710, L500.4050 ####[facility] [address], [address] GFR/1.73 sq M.predicted among non-blacks MDRD (S/P/Bld) [Vol rate/Area] 101 mL/min/{1.73_m2} Normal >60 [facility] Comment on above: Order Comment: 208 Result Comment: mL/m in/1.73m2 CKD-EPI Creatinine Equation (2020) Performed By: #### L 101.9900, L100.0100, L501.8820, L501.6710, L500.4050 ####[facility] [address], [address] Globulin (S) [Mass/Vol] 3.5 g/dL Normal 2.2-4.2 [facility] Comment on above: Order Comment: 208 Performed By: #### L 101.9900, L100.0100, L501.8820, L501.6710, L500.4050 ####[facility] [address], [address] Glucose [Mass/Vol] 132 mg/dL High 70-99 [facility] Comment on above: Order Comment: 208 Performed By: #### L 101.9900, L100.0100, L501.8820, L501.6710, L500.4050 ####[facility] [address], [address] Potassium [Moles/Vol] 4.2 mmol/L Normal 3.3-5.1 [facility] Comment on above: Order Comment: 208 Performed By: #### L 101.9900, L100.0100, L501.8820, L501.6710, L500.4050 ####[facility] [address], [address] Sodium [Moles/Vol] 140 mmol/L Normal 133-145 [facility] Comment on above: Order Comment: 208 Performed By: #### L 101.9900, L100.0100, L501.8820, L501.6710, L500.4050 ####[facility] [address], [address] T PROT 6.9 g/dL Normal 5.9-8.4 [facility] Comment on above: Order Comment: 208 Performed By: #### L 101.9900, L100.0100, L501.8820, L501.6710, L500.4050 ####[facility] [address], [address] Urea nitrogen [Mass/Vol] 26 mg/dL High 4-19 [facility] Comment on above: Order Comment: 208 Performed By: #### L 101.9900, L100.0100, L501.8820, L501.6710, L500.4050 ####[facility] [address], [address] Eosinophil percentageOrdered By: Kelli Shea on 11-07-2024 Eosinophils/100 WBC (Bld) 5.5 % High 0-5 [facility] Erythrocyte Sed Rateon 11-07 SED RATE 41 mm/hr High 0-20 [facility] Comment on above: Order Comment: 208 Performed By: #### L 101.9900, L100.0100, L501.8874, L501.6779, L500.4050 ####[facility] [address] [place], [address] Erythrocyte distribution wid th ratioOrdered By: Kelli Shea on 11-07-2024 Erythrocyte distribution width (RBC) [Ratio] 14.1 % 11.6-14.6 [facility] Erythrocyte distribution wid th standard deviationOrdered By: Kellidelmer Shea on 11-07-2024 Erythrocyte distribution width (RBC) [Ratio] 41.3 fl 35.1-43.9 [facility] Erythrocyte sedimentation ra teOrdered By: Kelli Shea on 11-07-2024 ESR (Bld) [Velocity] 41 mm/h High 0-20 [facility] Glomerular filtration rate ( GFR) estimation/1.73 sq m using serum, plasma, or whole bOrdered By: Kellidelmer Shea on 11-07-2024 GFR/1.73 sq M.predicted among non-blacks MDRD (S/P/Bld) [Vol rate/Area] 101 mL/min/{1.73_m2} >60 [facility] Comment on above: mL/min/1.73m2 CKD-EP I Creatinine Equation (2020) Hematocrit Auto (Bld) [Volum e fraction]Ordered By: Kelli Shea on 11-07-2024 Hematocrit (Bld) [Volume fraction] 36.4 % Low 40-54 [facility] Hemoglobin measurementOrdere d By: Kelli Shea on 11-07-2024 Hemoglobin (Bld) [Mass/Vol] 11.8 g/dL Low 13.0-16.5 [facility] Immature granulocytes/100 WB C Auto (Bld)Ordered By: Kelli Shea on 11-07-2024 Immature granulocytes/100 WBC (Bld) 0.300 % 0.0-0.9 [facility] Comment on above: IG% - Immature Granu locytes (promyelocytes, myelocytes and metamyelocytes) > 1% indicates that a LEFT SHIFT is Present. Laboratory - Chemistry and C hemistry - challengeOrdered By: Kelli Shea on 11-07-2024 AST [Catalytic activity/Vol] 34 U/L <38 [facility] MCV (mean corpuscular volume ) determinationOrdered By: Kelli Shea on 11-07-2024 MCV (RBC) [Entitic vol] 81.1 fL 80-94 [facility] Mean corpuscular hemoglobin (MCH) determinationOrdered By: Kelli Shea on 11-07-2024 MCH (RBC) [Entitic mass] 26.3 pg Low 27.0-32.0 [facility] Mean corpuscular hemoglobin concentration (MCHC) determinationOrdered By: Kelli Shea on 11-07-2024 MCHC (RBC) [Mass/Vol] 32.4 g/dL 32-36 [facility] Mean platelet volume determi nationOrdered By: Kelli Shea on 11-07-2024 Platelet mean volume (Bld) [Entitic vol] 10.8 fL 6.2-12.0 [facility] Monocyte percentageOrdered B y: Kelli Shea on 11-07-2024 Monocytes/100 WBC (Bld) 6.9 % 0-10 [facility] Neutrophil percentageOrdered By: Kelli Shea on 11-07-2024 Neutrophils/100 WBC (Bld) 50.0 % 47-70 [facility] No Panel InformationOrdered By: Kelli Shea on 11-07-2024 34 U/L <38 [facility] Nucleated red blood cell per centageOrdered By: Kelli Shea on 11-07-2024 Nucleated RBC/100 WBC (Bld) [Ratio] 0 % 0-5 [facility] Platelet countOrdered By: Chris Shea on 11-07-2024 Platelets (Bld) [#/Vol] 239 10*3/uL 150-450 [facility] Potassium measurement (mass/ volume)Ordered By: eKlli Shea on 11-07-2024 Potassium (Unsp spec) [Mass/Vol] 4.2 mmol/L 3.3-5.1 [facility] RBC Auto (Bld) [#/Vol]Ordere d By: Kelli Shea on 11-07-2024 RBC (Bld) [#/Vol] 4.49 10*6/uL Low 4.6-6.2 [facility] Serum creatinine measurement (mass/volume)Ordered By: Kelli Shea on 11-07-2024 Creatinine [Mass/Vol] 0.66 mg/dL Low 0.70-1.20 [facility] Serum globulin measurementOr dered By: Kelli Shea on 11-07-2024 Globulin (S) [Mass/Vol] 3.5 g/dL 2.2-4.2 [facility] Serum glucose measurement (m ass/volume)Ordered By: Kelli Shea on 11-07-2024 Glucose [Mass/Vol] 132 mg/dL High 70-99 [facility] Serum or plasma C reactive p rotein measurement (mass/volume)Ordered By: Kelli Shea on 11-07-2024 CRP [Mass/Vol] 10.60 mg/L High 0.0-3.0 [facility] Serum or plasma alanine herrmann otransferase (ALT) measurementOrdered By: Kelli Shea on 11-07-2024 ALT [Catalytic activity/Vol] 26 U/L <47 [facility] Serum or plasma albumin everardo urement (mass/volume)Ordered By: Kelli Shea on 11-07-2024 Albumin [Mass/Vol] 3.3 g/dL Low 3.4-4.8 [facility] Serum or plasma albumin/glob ulin mass ratioOrdered By: Kelli Shea on 11-07-2024 Albumin/Globulin [Mass ratio] 0.9 {ratio} 0.9-2.4 [facility] Serum or plasma alkaline kaiser sphatase measurementOrdered By: Kelli Shea on 11-07-2024 ALP [Catalytic activity/Vol] 111 U/L 40-129 [facility] Serum or plasma calcium everardo urement (mass/volume)Ordered By: Kelli Shea on 11-07-2024 Calcium [Mass/Vol] 9.8 mg/dL 7.6-11.0 [facility] Serum or plasma urea nitroge n measurement (mass/volume)Ordered By: Kelli Shea on 11-07-2024 Urea nitrogen [Mass/Vol] 26 mg/dL High 4-19 [facility] Sodium levelOrdered By: Nilay Shea on 11-07-2024 Sodium [Moles/Vol] 140 mmol/L 133-145 [facility] Total proteinOrdered By: Tawanda Shea on 11-07-2024 Protein [Mass/Vol] 6.9 g/dL 5.9-8.4 [facility] Trough vancomycin levelOrder ed By: Kelli Shea on 11-07-2024 Vancomycin trough [Mass/Vol] 17.1 ug/mL High 5.0-15.0 [facility] Comment on above: Recommended goal tro ugh [...] therapy recommended for serious lifethreatening infections include:- Gucjjgxbph-Oapjrlivoqse-Nvcrtjvtp (Ventilator/Healtcare Associated)-Sepsis PLEASE CONTACT PHARMACY SERVICES (#4008) FOR INTERPRETATIONOF RESULTS. Vancomycin, Trough Levelon 0 11-07-2024 VANCO, TROUGH 17.1 ug/mL High 5.0-15.0 [facility] Comment on above: Order Comment: Result Comment: [...] therapy recommended for serious lifethreatening infections include:- Nxsuniclpg-Rrflnkkndvmx-Tpkhjjiii (Ventilator/Healtcare Associated)-SepsisPLEASE CONTACT PHARMACY SERVICES (#7530) FOR INTERPRETATIONOF RESULTS. Performed By: #### L 101.9900, L100.0100, L501.8820, L501.6710, L500.4050 ####[facility] [address] [place], [address] White blood cell (WBC) count Ordered By: Kelli Shea on 11-07-2024 WBC (Bld) [#/Vol] 6.6 10*3/uL 4.4-11.0 [facility] Trough vancomycin levelOrder ed By: Kelli Shea on 11-02-2024 Vancomycin trough [Mass/Vol] 14.1 ug/mL 5.0-15.0 [facility] Comment on above: Recommended goal tro ugh [...] therapy recommended for serious lifethreatening infections include:- Fmyrukjjgp-Eevozmicgmfu-Qzrcfwcax (Ventilator/Healtcare Associated)-Sepsis PLEASE CONTACT PHARMACY SERVICES (#3458) FOR INTERPRETATIONOF RESULTS. Vancomycin, Trough Levelon 0 11-02-2024 VANCO, TROUGH 14.1 ug/mL Normal 5.0-15.0 [facility] Comment on above: Order Comment: [id number] Result Comment: [place] mmended goal trough [...] therapy recommended for serious lifethreatening infections include:- Auzcpgfhdj-Xlhlewdtqihw-Usknenrel (Ventilator/Healtcare Associated)-SepsisPLEASE CONTACT PHARMACY SERVICES (#8835) FOR INTERPRETATIONOF RESULTS. Performed By: #### L 501.8820 ####[facility] [address], [address] Anion gap in Serum or Plasma Ordered By: Kelli Shea on 10-31-2024 Anion gap [Moles/Vol] 10 mmol/L - [facility] BUN/creatinine ratioOrdered By: Kellidelmer Shea on 10-31-2024 Urea nitrogen/Creatinine [Mass ratio] 34.6 mg/mg High - [facility] Bilirubin, totalOrdered By: Kellidelmer Shea on 10-31-2024 Bilirubin [Mass/Vol] 0.72 mg/dL 0.00-1.30 [facility] CBC-Complete Blood Cnt No Di ffon 10-31-2024 Erythrocyte distribution width (RBC) [Ratio] 14.1 % Normal 11.6-14.6 [facility] Comment on above: Order Comment: 208.1 Performed By: #### L 500.4050, L100.0500, L101.9900, L501.6710 ####[facility] [address] [facility] [address] Hematocrit (Bld) [Volume fraction] 36.4 % Low 40-54 [facility] Comment on above: Order Comment: 208.1 Performed By: #### L 500.4050, L100.0500, L101.9900, L501.6710 ####[facility] [address], [address] Hemoglobin (Bld) [Mass/Vol] 11.9 g/dL Low 13.0-16.5 [facility] Comment on above: Order Comment: 208.1 Performed By: #### L 500.4050, L100.0500, L101.9900, L501.6710 ####[facility] [address], [address] MCH (RBC) [Entitic mass] 26.3 pg Low 27.0-32.0 [facility] Comment on above: Order Comment: 208.1 Performed By: #### L 500.4050, L100.0500, L101.9900, L501.6710 ####[facility] [address], [address] MCHC (RBC) [Mass/Vol] 32.7 g/dL Normal 32-36 [facility] Comment on above: Order Comment: .1 Performed By: #### L 500.4050, L100.0500, L101.9900, L501.6710 ####[facility] [address], [address] MCV (RBC) [Entitic vol] 80.5 fL Normal 80-94 [facility] Comment on above: Order Comment: .1 Performed By: #### L 500.4050, L100.0500, L101.9900, L501.6710 ####[facility] [address], [address] Platelet mean volume (Bld) [Entitic vol] 11.0 fL Normal 6.2-12.0 [facility] Comment on above: Order Comment: .1 Performed By: #### L 500.4050, L100.0500, L101.9900, L501.6710 ####[facility] [address], [address] Platelets (Bld) [#/Vol] 215 10*3/uL Normal 150-450 [facility] Comment on above: Order Comment: 208.1 Performed By: #### L 500.4050, L100.0500, L101.9900, L501.6710 ####[facility] [address], [address] RBC (Bld) [#/Vol] 4.52 10*6/uL Low 4.6-6.2 [facility] Comment on above: Order Comment: 208.1 Performed By: #### L 500.4050, L100.0500, L101.9900, L501.6710 ####[facility] [address], [address] RDW SD 40.8 fl Normal 35.1-43.9 [facility] Comment on above: Order Comment: 208.1 Performed By: #### L 500.4050, L100.0500, L101.9900, L501.6710 ####[facility] [address], [address] WBC (Bld) [#/Vol] 8.2 10*3/uL Normal 4.4-11.0 [facility] Comment on above: Order Comment: .1 Performed By: #### L 500.4050, L100.0500, L101.9900, L501.6710 ####[facility] [address], [address] CRPon 10-31-2024 C-REACTIVE PROT 17.00 mg/L High 0.0-3.0 [facility] Comment on above: Order Comment: .1 Performed By: #### L 500.4050, L100.0500, L101.9900, L501.6710 ####[facility] [address], [address] Carbon dioxide, total [Moles /volume] in Central venous bloodOrdered By: Kelli Shea on 10-31-2024 CO2 [Moles/Vol] 27.4 mmol/L 21.0-32.0 [facility] Chloride assayOrdered By: Chris Shea on 10-31-2024 Chloride [Moles/Vol] 99 mmol/L 98-108 [facility] Comprehensive Metabolic Prof ilon 10-31-2024 Albumin [Mass/Vol] 3.2 g/dL Low 3.4-4.8 [facility] Comment on above: Order Comment: 208.1 Performed By: #### L 500.4050, L100.0500, L101.9900, L501.6710 ####[facility] [address] [place], [address] Albumin/Globulin [Mass ratio] 0.9 {ratio} Normal 0.9-2.4 [facility] Comment on above: Order Comment: 208.1 Performed By: #### L 500.4050, L100.0500, L101.9900, L501.6710 ####[facility] [address] [place], [address] ALK PHOS 113 U/L Normal 40-129 [facility] Comment on above: Order Comment: 208.1 Performed By: #### L 500.4050, L100.0500, L101.9900, L501.6710 ####[facility] [address] [place], [address] ALT [Catalytic activity/Vol] 16 U/L Normal <=46 [facility] Comment on above: Order Comment: 208.1 Performed By: #### L 500.4050, L100.0500, L101.9900, L501.6710 ####[facility] [address] [place], [address] AST [Catalytic activity/Vol] 28 U/L Normal <=37 [facility] Comment on above: Order Comment: 208.1 Performed By: #### L 500.4050, L100.0500, L101.9900, L501.6710 ####[facility] [address] [place], [address] Bilirubin [Mass/Vol] 0.72 mg/dL Normal 0.00-1.30 [facility] Comment on above: Order Comment: 208.1 Performed By: #### L 500.4050, L100.0500, L101.9900, L501.6710 ####[facility] [facility] [address] [place], [address] BUN/CRE 34.6 RATIO High 10-20 [facility] Comment on above: Order Comment: 208.1 Performed By: #### L 500.4050, L100.0500, L101.9900, [id number] ####[facility] [address] [place], [address] Calcium [Mass/Vol] 9.6 mg/dL Normal 7.6-11.0 [facility] Comment on above: Order Comment: 208.1 Performed By: #### L 500.4050, L100.0500, L101.9900, [id number] ####[facility] [address] [place], [address] Chloride [Moles/Vol] 99 mmol/L Normal 98-108 [facility] Comment on above: Order Comment: 208.1 Performed By: #### L 500.4050, L100.0500, L101.9900, [id number] ####[facility] [address] [place], [address] CO2 [Moles/Vol] 27.4 mmol/L Normal 21.0-32.0 [facility] Comment on above: Order Comment: 208.1 Performed By: #### L 500.4050, L100.0500, L101.9900, [id number] ####[facility] [address] [place], [address] Creatinine [Mass/Vol] 0.66 mg/dL Low 0.70-1.20 [facility] Comment on above: Order Comment: 208.1 Performed By: #### L 500.4050, L100.0500, L101.9900, [id number] ####[facility] [address] [place], [address] GAP 10 Normal 5-15 [facility] Comment on above: Order Comment: 208.1 Performed By: #### L 500.4050, L100.0500, L101.9900, [id number] ####[facility] [address], [address] GFR/1.73 sq M.predicted among non-blacks MDRD (S/P/Bld) [Vol rate/Area] 101 mL/min/{1.73_m2} Normal >60 [facility] Comment on above: Order Comment: .1 Result Comment: mL/m in/1.73m2 CKD-EPI Creatinine Equation (2020) Performed By: #### L 500.4050, L100.0500, L101.9900, [id number] ####[facility] [address], [address] Globulin (S) [Mass/Vol] 3.5 g/dL Normal 2.2-4.2 [facility] Comment on above: Order Comment: 208.1 Performed By: #### L 500.4050, L100.0500, L101.9900, [id number] ####[facility] [address], [address] Glucose [Mass/Vol] 166 mg/dL High 70-99 [facility] Comment on above: Order Comment: 208.1 Performed By: #### L 500.4050, L100.0500, L101.9900, [id number] ####[facility] [address], [address] Potassium [Moles/Vol] 4.3 mmol/L Normal 3.3-5.1 [facility] Comment on above: Order Comment: 208.1 Performed By: #### L 500.4050, L100.0500, L101.9900, [id number] ####[facility] [address], [address] Sodium [Moles/Vol] 136 mmol/L Normal 133-145 [facility] Comment on above: Order Comment: 208.1 Performed By: #### L 500.4050, L100.0500, L101.9900, [id number] ####[facility] [address], [address] T PROT 6.7 g/dL Normal 5.9-8.4 [facility] Comment on above: Order Comment: 208.1 Performed By: #### L 500.4050, L100.0500, L101.9900, [id number] ####[facility] [address], [address] Urea nitrogen [Mass/Vol] 23 mg/dL High 4-19 [facility] Comment on above: Order Comment: 208.1 Performed By: #### L 500.4050, L100.0500, L101.9900, [id number] ####[facility] [address] [place], [address] Erythrocyte Sed Rateon 10-31 SED RATE 45 mm/hr High 0-20 [facility] Comment on above: Order Comment: 208.1 Performed By: #### L 500.4050, L100.0500, L101.9900, [id number] ####[facility] [address] [place], [address] Erythrocyte distribution wid th ratioOrdered By: Kelli Shea on 10-31-2024 Erythrocyte distribution width (RBC) [Ratio] 14.1 % 11.6-14.6 [facility] Erythrocyte distribution wid th standard deviationOrdered By: Kelli Shea on 10-31-2024 Erythrocyte distribution width (RBC) [Ratio] 40.8 fl 35.1-43.9 [facility] Erythrocyte sedimentation ra teOrdered By: Kelli Shea on 10-31-2024 ESR (Bld) [Velocity] 45 mm/h High 0-20 [facility] Glomerular filtration rate ( GFR) estimation/1.73 sq m using serum, plasma, or whole bOrdered By: Kelli Shea on 10-31-2024 GFR/1.73 sq M.predicted among non-blacks MDRD (S/P/Bld) [Vol rate/Area] 101 mL/min/{1.73_m2} >60 [facility] Comment on above: mL/min/1.73m2 CKD-EP I Creatinine Equation (2020) Hematocrit Auto (Bld) [Volum e fraction]Ordered By: Kelli Shea on 10-31-2024 Hematocrit (Bld) [Volume fraction] 36.4 % Low 40-54 [facility] Hemoglobin measurementOrdere d By: Kelli Shea on 10-31-2024 Hemoglobin (Bld) [Mass/Vol] 11.9 g/dL Low 13.0-16.5 [facility] Laboratory - Chemistry and C hemistry - challengeOrdered By: Kelli Shea on 10-31-2024 AST [Catalytic activity/Vol] 28 U/L <38 [facility] MCV (mean corpuscular volume ) determinationOrdered By: Kelli Shea on 10-31-2024 MCV (RBC) [Entitic vol] 80.5 fL 80-94 [facility] Mean corpuscular hemoglobin (MCH) determinationOrdered By: Kelli Shea on 10-31-2024 MCH (RBC) [Entitic mass] 26.3 pg Low 27.0-32.0 [facility] Mean corpuscular hemoglobin concentration (MCHC) determinationOrdered By: Kelli Shea on 10-31-2024 MCHC (RBC) [Mass/Vol] 32.7 g/dL 32-36 [facility] Mean platelet volume determi nationOrdered By: Kelli Shea on 10-31-2024 Platelet mean volume (Bld) [Entitic vol] 11.0 fL 6.2-12.0 [facility] No Panel InformationOrdered By: Kelli Shea on 10-31-2024 28 U/L <38 [facility] Platelet countOrdered By: Chris Shea on 10-31-2024 Platelets (Bld) [#/Vol] 215 10*3/uL 150-450 [facility] Potassium measurement (mass/ volume)Ordered By: Kelli Shea on 10-31-2024 Potassium (Unsp spec) [Mass/Vol] 4.3 mmol/L 3.3-5.1 [facility] RBC Auto (Bld) [#/Vol]Ordere d By: Kelli Shea on 10-31-2024 RBC (Bld) [#/Vol] 4.52 10*6/uL Low 4.6-6.2 [facility] Serum creatinine measurement (mass/volume)Ordered By: Kelli Shea on 10-31-2024 Creatinine [Mass/Vol] 0.66 mg/dL Low 0.70-1.20 [facility] Serum globulin measurementOr dered By: Kelli Shea on 10-31-2024 Globulin (S) [Mass/Vol] 3.5 g/dL 2.2-4.2 [facility] Serum glucose measurement (m ass/volume)Ordered By: Kelli Shea on 10-31-2024 Glucose [Mass/Vol] 166 mg/dL High 70-99 [facility] Serum or plasma C reactive p rotein measurement (mass/volume)Ordered By: Kelli Shea on 10-31-2024 CRP [Mass/Vol] 17.00 mg/L High 0.0-3.0 [facility] Serum or plasma alanine herrmann otransferase (ALT) measurementOrdered By: Kelli Shea on 10-31-2024 ALT [Catalytic activity/Vol] 16 U/L <47 [facility] Serum or plasma albumin everardo urement (mass/volume)Ordered By: Kelli Shea on 10-31-2024 Albumin [Mass/Vol] 3.2 g/dL Low 3.4-4.8 [facility] Serum or plasma albumin/glob ulin mass ratioOrdered By: Kelli Shea on 10-31-2024 Albumin/Globulin [Mass ratio] 0.9 {ratio} 0.9-2.4 [facility] Serum or plasma alkaline kaiser sphatase measurementOrdered By: Kelli Shea on 10-31-2024 ALP [Catalytic activity/Vol] 113 U/L 40-129 [facility] Serum or plasma calcium everardo urement (mass/volume)Ordered By: Kelli Shea on 10-31-2024 Calcium [Mass/Vol] 9.6 mg/dL 7.6-11.0 [facility] Serum or plasma urea nitroge n measurement (mass/volume)Ordered By: Kelli Shea on 10-31-2024 Urea nitrogen [Mass/Vol] 23 mg/dL High 4-19 [facility] Sodium levelOrdered By: Nilay Shea on 10-31-2024 Sodium [Moles/Vol] 136 mmol/L 133-145 [facility] Total proteinOrdered By: Tawanda Shea on 10-31-2024 Protein [Mass/Vol] 6.7 g/dL 5.9-8.4 [facility] White blood cell (WBC) count Ordered By: Kelli Shea on 10-31-2024 WBC (Bld) [#/Vol] 8.2 10*3/uL 4.4-11.0 [facility] GLUCOSE POCon 10-30-2024 Glucose [Mass/Vol] 170 mg/dL 70 - 179 mg/dL [facility] POC Sample Type CAPBL [facility] CBC,PLATELETSon 10-29-2024 Erythrocyte distribution width (RBC) [Ratio] 13.9 % 10.9 - 14.3 % [facility] Hematocrit (Bld) [Volume fraction] 37.1 % Low 39.6 - 48.8 % [facility] Hemoglobin (Bld) [Mass/Vol] 11.8 g/dL Low 13.4 - 16.8 g/dL [facility] Interpretation and review of laboratory results Abnormal [facility] MCH (RBC) [Entitic mass] 25.8 pg Low 26. 1 - 33.3 pg [facility] MCHC (RBC) [Mass/Vol] 31.8 g/dL Low 31.9 - 36.5 g/dL [facility] MCV (RBC) [Entitic vol] 81.2 fL 79.0 - 94.5 fL [facility] Platelet mean volume (Bld) [Entitic vol] 10.9 fL 8.7 - 12.3 fL [facility] Platelets (Bld) [#/Vol] 216 10*3/uL 146 - 337 K/uL [facility] RBC (Bld) [#/Vol] 4.57 10*6/uL [facility] WBC (Bld) [#/Vol] 8 10*3/uL 3.73 - 10. 10 K/uL [facility] Hematocrit (Bld) [Volume fraction] 37.1 % Low 39.6-48.8 [facility] Comment on above: Performed By: #### C HM7 #### [facility] (DEFAULT) [address] [address] Hemoglobin (Bld) [Mass/Vol] 11.8 g/dL Low 13.4-16.8 [facility] Comment on above: Performed By: #### C HM7 #### [facility] (DEFAULT) [address] [address] MCV (RBC) [Entitic vol] 81.2 fL Normal 79.0-94.5 [facility] Comment on above: Performed By: #### C HM7 #### [facility] (DEFAULT) [address] [address] Mean Cell Hgb 25.8 pg Low 26.1-33.3 [facility] Comment on above: Performed By: #### C HM7 #### [facility] (DEFAULT) [address] [address] Mean Cell Hgb Conc 31.8 g/dL Low 31.9-36.5 [facility] Comment on above: Performed By: #### C HM7 #### [facility] (DEFAULT) [address] [place] [address] Platelet mean volume (Bld) [Entitic vol] 10.9 fL Normal 8.7-12.3 [facility] Comment on above: Performed By: #### C HM7 #### [facility] (DEFAULT) [address] [place] [address] Platelets (Bld) [#/Vol] 216 10*3/uL Normal 146-337 [facility] Comment on above: Performed By: #### C HM7 #### [facility] (DEFAULT) [address] [place] [address] RBC (Bld) [#/Vol] 4.57 10*6/uL Normal 4.38-5.83 [facility] Comment on above: Performed By: #### C HM7 #### [facility] (DEFAULT) [address] [place] [address] RBC Distribution 13.9 % Normal 10.9-14.[address] [facility] Comment on above: Performed By: #### C HM7 #### [facility] (DEFAULT) [address] [place] [address] WBC (Bld) [#/Vol] 8.00 10*3/uL Normal 3.73-10.10 [facility] Comment on above: Performed By: #### C HM7 #### [facility] (DEFAULT) [address] [place] [address] CHEM 7 (LYTES,BUN,CREA,GLUC) on 10-29-2024 Anion gap [Moles/Vol] 11 mmol/L 7 - 17 mmol/L [facility] Chloride [Moles/Vol] 99 mmol/L 98 - 10 8 mmol/L [facility] CO2 [Moles/Vol] 32 mmol/L High 21 - 31 mmol/L [facility] Creatinine [Mass/Vol] 0.58 mg/dL Low 0.70 - 1.30 mg/dL [facility] eGFR, CKD-EPI, Male - PINF [facility] Glucose [Mass/Vol] 152 mg/dL 70 - 179 mg/dL [facility] Interpretation and review of laboratory results Abnormal [facility] Osmolality Calc [Osmolality] 297 [facility] Potassium [Moles/Vol] 3.9 mmol/L 3.5 - 5.0 mmol/L [facility] Sodium [Moles/Vol] 138 mmol/L 135 - 145 mmol/L [facility] Urea nitrogen [Mass/Vol] 26 mg/dL High 7 - 25 mg/d L [facility] Urea nitrogen/Creatinine [Mass ratio] 45 mg/mg [facility] Anion gap [Moles/Vol] 11 mmol/L Normal 7-17 [facility] Comment on above: Performed By: #### X M #### [facility] (DEFAULT) [address] [place] [address] Chloride [Moles/Vol] 99 mmol/L Normal 98-108 [facility] Comment on above: Performed By: #### X M #### [facility] (DEFAULT) [address] [place] [address] CO2 [Moles/Vol] 32 mmol/L High 21-31 [facility] Comment on above: Performed By: #### X M #### [facility] (DEFAULT) [address] [place] [address] Creatinine [Mass/Vol] 0.58 mg/dL Low 0.70-1.30 [facility] Comment on above: Performed By: #### X M #### [facility] (DEFAULT) [address] [place] [address] eGFR, CKD-EPI, Male > Normal >=60 [facility] Comment on above: Result Comment: Repo rted eGFR is based on the CKD-EPI 2020 equation using creatinine, age, and sex. Performed By: #### X M #### [facility] (DEFAULT) [address] [place] [address] Glucose [Mass/Vol] 152 mg/dL Normal Nonfastin -179 mg/dL; Fastin-99 [facility] Comment on above: Performed By: #### X M #### [facility] (DEFAULT) [address] [place] [address] Osmolality [Osmolality] 297 mosm/kg Normal 278-305 [facility] Comment on above: Performed By: #### X M #### [facility] (DEFAULT) [address] [place] [address] Potassium [Moles/Vol] 3.9 mmol/L Normal 3.5-5.0 [facility] Comment on above: Performed By: #### X M #### [facility] (DEFAULT) [address] [place] [address] Sodium [Moles/Vol] 138 mmol/L Normal 135-145 [facility] Comment on above: Performed By: #### X M #### [facility] (DEFAULT) [address] [place] [address] Urea nitrogen [Mass/Vol] 26 mg/dL High 7-25 [facility] Comment on above: Performed By: #### X M #### [facility] (DEFAULT) [address] [place] [address] Urea nitrogen/Creatinine [Mass ratio] 45 mg/mg Normal [facility] Comment on above: Performed By: #### X M #### [facility] (DEFAULT) [address] [place] [address] GLUCOSE POCon 10-29-2024 Glucose [Mass/Vol] 182 mg/dL High 70 - 179 mg/dL [facility] Interpretation and review of laboratory results Abnormal [facility] POC Sample Type CAPBL [facility] Glucose [Mass/Vol] 191 mg/dL High 70 - 179 mg/dL [facility] Interpretation and review of laboratory results Abnormal [facility] POC Sample Type CAPBL [facility] Glucose [Mass/Vol] 214 mg/dL High 70 - 179 mg/dL [facility] Interpretation and review of laboratory results Abnormal [facility] POC Sample Type CAPBL [facility] Glucose [Mass/Vol] 145 mg/dL 70 - 179 mg/dL [facility] POC Sample Type CAPBL [facility] GLUCOSE POCon 10-28-2024 Glucose [Mass/Vol] 168 mg/dL 70 - 179 mg/[facility] Glucose [Mass/Vol] 165 mg/dL 70 - 179 mg/dL [facility] POC Sample [facility] Glucose [Mass/Vol] 218 mg/dL High 70 - 179 mg/dL [facility] Interpretation and review of laboratory results Abnormal [facility] POC Sample Type [facility] Glucose [Mass/Vol] 179 mg/dL 70 - 179 mg/dL [facility] POC Sample Type [facility] GLUCOSE POCon 10-27-2024 Glucose [Mass/Vol] 207 mg/dL High 70 - 179 mg/dL [facility] Interpretation and review of laboratory results Abnormal [facility] POC Sample Type [facility] Glucose [Mass/Vol] 164 mg/dL 70 - 179 mg/dL [facility] POC Sample Type CAPBL [facility] Glucose [Mass/Vol] 208 mg/dL High 70 - 179 mg/dL [facility] Interpretation and review of laboratory results Abnormal [facility] POC Sample Type CAPBL [facility] Glucose [Mass/Vol] 193 mg/dL High 70 - 179 mg/dL [facility] Interpretation and review of laboratory results Abnormal [facility] POC Sample Type CAPBL [facility] VANCOMYCIN LEVEL, TROUGH (NC E DRUG LEVEL)on 10-27-2024 Interpretation and review of laboratory results Normal [facility] Vancomycin trough [Mass/Vol] 15.6 ug/mL [facility] Vancomycin, Trough 15.6 mcg/mL Normal Therapeut ic Range: 10.0-20.0 mcg/mL [facility] Comment on above: Order Comment: Pleas e draw level at specified interval PRIOR to next dose. Performed By: #### V ANCTR #### [facility] (DEFAULT) [address] [place] [address] CBC,PLATELETSon 10-26-2024 Erythrocyte distribution width (RBC) [Ratio] 13.5 % 10.9 - 14.3 % [facility] Hematocrit (Bld) [Volume fraction] 37.7 % Low 39.6 - 48.8 % [facility] Hemoglobin (Bld) [Mass/Vol] 12.5 g/dL Low 13.4 - 16.8 g/dL [facility] Interpretation and review of laboratory results Abnormal [facility] MCH (RBC) [Entitic mass] 26.8 pg 26. 1 - 33.3 pg [facility] MCHC (RBC) [Mass/Vol] 33.2 g/dL 31.9 - 36.5 g/dL [facility] MCV (RBC) [Entitic vol] 80.7 fL 79.0 - 94.5 fL [facility] Platelet mean volume (Bld) [Entitic vol] 10.3 fL 8.7 - 12.3 fL [facility] Platelets (Bld) [#/Vol] 229 10*3/uL 146 - 337 K/uL [facility] RBC (Bld) [#/Vol] 4.67 10*6/uL [facility] WBC (Bld) [#/Vol] 8.37 10*3/uL 3.73 - 10. 10 K/uL [facility] Hematocrit (Bld) [Volume fraction] 37.7 % Low 39.6-48.8 [facility] Comment on above: Performed By: #### X M #### [facility] (DEFAULT) [address] [place] [address] Hemoglobin (Bld) [Mass/Vol] 12.5 g/dL Low 13.4-16.8 [facility] Comment on above: Performed By: #### X M #### [facility] (DEFAULT) [address] [place] [address] MCV (RBC) [Entitic vol] 80.7 fL Normal 79.0-94.5 [facility] Comment on above: Performed By: #### X M #### [facility] (DEFAULT) [address] [place] [address] Mean Cell Hgb 26.8 pg Normal 26.1-33.3 [facility] Comment on above: Performed By: #### X M #### [facility] (DEFAULT) [address] [place] [address] Mean Cell Hgb Conc 33.2 g/dL Normal 31.9-36.5 [facility] Comment on above: Performed By: #### X M #### [facility] (DEFAULT) [address] [place] [address] Platelet mean volume (Bld) [Entitic vol] 10.3 fL Normal 8.7-12.3 [facility] Comment on above: Performed By: #### X M #### [facility] (DEFAULT) [address] [place] [address] Platelets (Bld) [#/Vol] 229 10*3/uL Normal 146-337 [facility] Comment on above: Performed By: #### X M #### [facility] (DEFAULT) [address] [place] [address] RBC (Bld) [#/Vol] 4.67 10*6/uL Normal 4.38-5.83 [facility] Comment on above: Performed By: #### X M #### [facility] (DEFAULT) [address] [place] [address] 11511 RBC Distribution 13.5 % Normal 10.9-14.[address] [facility] Comment on above: Performed By: #### X M #### [facility] (DEFAULT) [address] [place] [address]28[address] WBC (Bld) [#/Vol] 8.37 10*3/uL Normal 3.73-10.10 [facility] Comment on above: Performed By: #### X M #### [facility] (DEFAULT) [address] [place] [address] CHEM 7 (LYTES,BUN,CREA,GLUC) on 10-26-2024 Anion gap [Moles/Vol] 11 mmol/L 7 - 17 mmol/L [facility] Chloride [Moles/Vol] 99 mmol/L 98 - 10 8 mmol/L [facility] CO2 [Moles/Vol] 30 mmol/L 21 - 31 mmol/L [facility] Creatinine [Mass/Vol] 0.63 mg/dL Low 0.70 - 1.30 mg/dL [facility] eGFR, CKD-EPI, Male - PINF [facility] Glucose [Mass/Vol] 189 mg/dL High 70 - 179 mg/dL [facility] Interpretation and review of laboratory results Abnormal [facility] Osmolality Calc [Osmolality] 296 [facility] Potassium [Moles/Vol] 4.3 mmol/L 3.5 - 5.0 mmol/L [facility] Sodium [Moles/Vol] 136 mmol/L 135 - 145 mmol/L [facility] Urea nitrogen [Mass/Vol] 24 mg/dL 7 - 25 mg/d L [facility] Urea nitrogen/Creatinine [Mass ratio] 38 mg/mg [facility] Anion gap [Moles/Vol] 11 mmol/L Normal 7-17 [facility] Comment on above: Performed By: #### C HM7 #### [facility] (DEFAULT) [address] [place] [address]25[address] Chloride [Moles/Vol] 99 mmol/L Normal 98-108 [facility] Comment on above: Performed By: #### C HM7 #### [facility] (DEFAULT) [address] [place] [address] 73616 CO2 [Moles/Vol] 30 mmol/L Normal 21-31 [facility] Comment on above: Performed By: #### C HM7 #### [facility] (DEFAULT) [address] [place] [address]2943 Creatinine [Mass/Vol] 0.63 mg/dL Low 0.70-1.30 [facility] [facility] Comment on above: Performed By: #### C HM7 #### [facility] (DEFAULT) [address] [place] [address] 80307 eGFR, CKD-EPI, Male > Normal >=60 [facility] Comment on above: Result Comment: Repo rted eGFR is based on the CKD-EPI 2020 equation using creatinine, age, and sex. Performed By: #### C HM7 #### [facility] (DEFAULT) [address] [place] [address] 61028 Glucose [Mass/Vol] 189 mg/dL High Nonfastin -179 mg/dL; Fastin-99 [facility] Comment on above: Performed By: #### C HM7 #### [facility] (DEFAULT) [address] [place] [address] 63590 Osmolality [Osmolality] 296 mosm/kg Normal 278-305 [facility] Comment on above: Performed By: #### C HM7 #### [facility] (DEFAULT) [address] [place] [address] 31363 Potassium [Moles/Vol] 4.3 mmol/L Normal 3.5-5.0 [facility] Comment on above: Performed By: #### C HM7 #### [facility] (DEFAULT) [address] [place] [address] Sodium [Moles/Vol] 136 mmol/L Normal 135-145 [facility] Comment on above: Performed By: #### C HM7 #### [facility] (DEFAULT) [address] [place] [address] 75792 Urea nitrogen [Mass/Vol] 24 mg/dL Normal 7-25 [facility] Comment on above: Performed By: #### C HM7 #### [facility] (DEFAULT) [address] [place] [address] 29521 Urea nitrogen/Creatinine [Mass ratio] 38 mg/mg Normal [facility] Comment on above: Performed By: #### C HM7 #### [facility] (DEFAULT) [address] [place] [address] HEAD WITHOUT CONTRASTon 0 10-26-2024 CT HEAD WITHOUT CONTRAST EXAM: CT HEAD WITHOUT CONTRAST, 10/26/2024 3:20 AM COMPARISON: CT HEAD [...] the associated mass effect appear unchanged. Normal [facility] CT Head WO contraston 2024 RADIOLOGY RADIOLOGY [facility]ative[facility] contrastOrdered B y: Jeremias Christensen on 10-26-2024 [facility] Work Phone: ECGOrdered By: Tressa Cruz ba on 10-26-2024 [facility] Work Phone: GLUCOSE POCon 10-26-2024 Glucose [Mass/Vol] 180 mg/dL High 70 - 179 mg/dL [facility] Interpretation and review of laboratory results Abnormal [facility]ucose [Mass/Vol] 167 mg/dL 70 - 179 mg/dL [facility] [Mass/Vol] 223 mg/dL High 70 - 179 mg/dL [facility] Interpretation and review of laboratory results Abnormal [facility] POC Sample Type [facility] No Panel InformationOrdered By: Unassigned Pacs on 10-26-2024 [facility] Work Phone: CBC,PLATELETSon 10-25-2024 Erythrocyte distribution width (RBC) [Ratio] 13.4 % 10.9 - 14.3 % [facility] Hematocrit (Bld) [Volume fraction] 37.7 % Low 39.6 - 48.8 % [facility] Hemoglobin (Bld) [Mass/Vol] 12.5 g/dL Low 13.4 - 16.8 g/dL [facility] Interpretation and review of laboratory results Abnormal [facility] MCH (RBC) [Entitic mass] 26.4 pg 26. 1 - 33.3 pg [facility] MCHC (RBC) [Mass/Vol] 33.2 g/dL 31.9 - 36.5 g/dL [facility] MCV (RBC) [Entitic vol] 79.7 fL 79.0 - 94.5 fL [facility] Platelet mean volume (Bld) [Entitic vol] 9.7 fL 8.7 - 12.3 fL [facility] Platelets (Bld) [#/Vol] 244 10*3/uL 146 - 337 K/uL [facility] RBC (Bld) [#/Vol] 4.73 10*6/uL [facility] WBC (Bld) [#/Vol] 8.14 10*3/uL 3.73 - 10. 10 K/uL [facility] Hematocrit (Bld) [Volume fraction] 37.7 % Low 39.6-48.8 [facility] Comment on above: Performed By: #### V ANCTR #### [facility] (DEFAULT) [address] [address] Hemoglobin (Bld) [Mass/Vol] 12.5 g/dL Low 13.4-16.8 [facility] Comment on above: Performed By: #### V ANCTR #### [facility] (DEFAULT) [address] [place] [address] 52005 MCV (RBC) [Entitic vol] 79.7 fL Normal 79.0-94.5 [facility] Comment on above: Performed By: #### V ANCTR #### [facility] (DEFAULT) [address] [place] [address] 60987 Mean Cell Hgb 26.4 pg Normal 26.1-33.3 [facility] Comment on above: Performed By: #### V ANCTR #### [facility] (DEFAULT) [address] [place] [address] 54487 Mean Cell Hgb Conc 33.2 g/dL Normal 31.9-36.5 [facility] Comment on above: Performed By: #### V ANCTR #### [facility] (DEFAULT) [address] [place] [address] 20923 Platelet mean volume (Bld) [Entitic vol] 9.7 fL Normal 8.7-12.3 [facility] Comment on above: Performed By: #### V ANCTR #### [facility] (DEFAULT) [address] [place] [address] 96863 Platelets (Bld) [#/Vol] 244 10*3/uL Normal 146-337 [facility] Comment on above: Performed By: #### V ANCTR #### [facility] (DEFAULT) [address] [place] [address] 93773 RBC (Bld) [#/Vol] 4.73 10*6/uL Normal 4.38-5.83 [facility] Comment on above: Performed By: #### V ANCTR #### [facility] (DEFAULT) [address] [place] [address] 06614 RBC Distribution 13.4 % Normal 10.9-14.[address] [facility] Comment on above: Performed By: #### V ANCTR #### [facility] (DEFAULT) [address] [place] [address] 77982 WBC (Bld) [#/Vol] 8.14 10*3/uL Normal 3.73-10.10 [facility] Comment on above: Performed By: #### V ANCTR #### [facility] (DEFAULT) [address] [place] [address] 16867 CHEM 7 (LYTES,BUN,CREA,GLUC) on 10-25-2024 Anion gap [Moles/Vol] 12 mmol/L 7 - 17 mmol/L [facility] Chloride [Moles/Vol] 97 mmol/L Low 98 - 10 8 mmol/L [facility] CO2 [Moles/Vol] 31 mmol/L 21 - 31 mmol/L [facility] Creatinine [Mass/Vol] 0.61 mg/dL Low 0.70 - 1.30 mg/dL [facility] eGFR, CKD-EPI, Male - PINF [facility] Glucose [Mass/Vol] 150 mg/dL 70 - 179 mg/dL [facility] Interpretation and review of laboratory results Abnormal [facility] Osmolality Calc [Osmolality] 291 [facility] Potassium [Moles/Vol] 4 mmol/L 3.5 - 5.0 mmol/L [facility] Sodium [Moles/Vol] 136 mmol/L 135 - 145 mmol/L [facility] Urea nitrogen [Mass/Vol] 20 mg/dL 7 - 25 mg/d L [facility] Urea nitrogen/Creatinine [Mass ratio] 33 mg/mg [facility] Anion gap [Moles/Vol] 12 mmol/L Normal 7-17 [facility] Comment on above: Performed By: #### X M #### [facility] (DEFAULT) [address] [address] Chloride [Moles/Vol] 97 mmol/L Low 98-108 [facility] Comment on above: Performed By: #### X M #### [facility] (DEFAULT) [address] [place] [address] 29596 CO2 [Moles/Vol] 31 mmol/L Normal 21-31 [facility] Comment on above: Performed By: #### X M #### [facility] (DEFAULT) [address] [address] Creatinine [Mass/Vol] 0.61 mg/dL Low 0.70-1.30 [facility] Comment on above: Performed By: #### X M #### [facility] (DEFAULT) [address] [address] eGFR, CKD-EPI, Male > Normal >=60 [facility] Comment on above: Result Comment: Repo rted eGFR is based on the CKD-EPI 2021 equation using creatinine, age, and sex. Performed By: #### X M #### [facility] (DEFAULT) [address] [place] [address] 18303 Glucose [Mass/Vol] 150 mg/dL Normal Nonfastin -179 mg/dL; Fastin-99 [facility] Comment on above: Performed By: #### X M #### [facility] (DEFAULT) [address] [place] [address] 73727 Osmolality [Osmolality] 291 mosm/kg Normal 278-305 [facility] Comment on above: Performed By: #### X M #### [facility] (DEFAULT) [address] [place] [address] 42158 Potassium [Moles/Vol] 4.0 mmol/L Normal 3.5-5.0 [facility] Comment on above: Performed By: #### X M #### [facility] (DEFAULT) [address] [place] [address] 31747 Sodium [Moles/Vol] 136 mmol/L Normal 135-145 [facility] Comment on above: Performed By: #### X M #### [facility] (DEFAULT) [address] [place] [address] 91361 Urea nitrogen [Mass/Vol] 20 mg/dL Normal 7-25 [facility] Comment on above: Performed By: #### X M #### [facility] (DEFAULT) [address] [place] [address] 52180 Urea nitrogen/Creatinine [Mass ratio] 33 mg/mg Normal [facility] Comment on above: Performed By: #### X M #### [facility] (DEFAULT) [address] [place] [address] 73851 GLUCOSE POCon 10-25-2024 Glucose [Mass/Vol] 181 mg/dL High 70 - 179 mg/dL [facility] Interpretation and review of laboratory results Abnormal [facility] POC Sample Type [facility] Glucose [Mass/Vol] 224 mg/dL High 70 - 179 mg/dL [facility] Interpretation and review of laboratory results Abnormal [facility] Glucose [Mass/Vol] 202 mg/dL High 70 - 179 mg/dL [facility] Interpretation and review of laboratory results Abnormal [facility] Glucose [Mass/Vol] 207 mg/dL High 70 - 179 mg/dL [facility] Interpretation and review of laboratory results Abnormal [facility] Glucose [Mass/Vol] 147 mg/dL 70 - 179 mg/dL [facility] POC Sample Type [facility] CBC,PLATELETSon 10-24-2024 Erythrocyte distribution width (RBC) [Ratio] 13.2 % 10.9 - 14.3 % [facility] Hematocrit (Bld) [Volume fraction] 38.2 % Low 39.6 - 48.8 % [facility] Hemoglobin (Bld) [Mass/Vol] 12.4 g/dL Low 13.4 - 16.8 g/dL [facility] Interpretation and review of laboratory results Abnormal [facility] MCH (RBC) [Entitic mass] 25.6 pg Low 26. 1 - 33.3 pg [facility] MCHC (RBC) [Mass/Vol] 32.5 g/dL 31.9 - 36.5 g/dL [facility] MCV (RBC) [Entitic vol] 78.8 fL Low 79.0 - 94.5 fL [facility] Platelet mean volume (Bld) [Entitic vol] 10 fL 8.7 - 12.3 fL [facility] Platelets (Bld) [#/Vol] 274 10*3/uL 146 - 337 K/uL [facility] RBC (Bld) [#/Vol] 4.85 10*6/uL [facility] WBC (Bld) [#/Vol] 8.14 10*3/uL 3.73 - 10. 10 K/uL [facility] Hematocrit (Bld) [Volume fraction] 38.2 % Low 39.6-48.8 [facility] Comment on above: Performed By: #### V ANCTR #### [facility] (DEFAULT) [address] [place] [address] 61505 Hemoglobin (Bld) [Mass/Vol] 12.4 g/dL Low 13.4-16.8 [facility] Comment on above: Performed By: #### V ANCTR #### [facility] (DEFAULT) [address] [place] [address] 28578 MCV (RBC) [Entitic vol] 78.8 fL Low 79.0-94.5 [facility] Comment on above: Performed By: #### V ANCTR #### [facility] (DEFAULT) [address] [place] [address] 69132 Mean Cell Hgb 25.6 pg Low 26.1-33.3 [facility] Comment on above: Performed By: #### V ANCTR #### [facility] (DEFAULT) [address] [place] [address] 33863 Mean Cell Hgb Conc 32.5 g/dL Normal 31.9-36.5 [facility] Comment on above: Performed By: #### V ANCTR #### [facility] (DEFAULT) [address] [place] [address] 77716 Platelet mean volume (Bld) [Entitic vol] 10.0 fL Normal 8.7-12.3 [facility] Comment on above: Performed By: #### V ANCTR #### [facility] (DEFAULT) [address] [place] [address] 33860 Platelets (Bld) [#/Vol] 274 10*3/uL Normal 146-337 [facility] Comment on above: Performed By: #### V ANCTR #### [facility] (DEFAULT) [address] [place] [address] 67436 RBC (Bld) [#/Vol] 4.85 10*6/uL Normal 4.38-5.83 [facility] Comment on above: Performed By: #### V ANCTR #### [facility] (DEFAULT) [address] [place] [address] 20943 RBC Distribution 13.2 % Normal 10.9-14.[address] [facility] Comment on above: Performed By: #### V ANCTR #### [facility] (DEFAULT) [address] [address] WBC (Bld) [#/Vol] 8.14 10*3/uL Normal 3.73-10.10 [facility] Comment on above: Performed By: #### V ANCTR #### [facility] (DEFAULT) [address] [place] [address] 23421 CHEM 7 (LYTES,BUN,CREA,GLUC) on 10-24-2024 Anion gap [Moles/Vol] 11 mmol/L 7 - 17 mmol/L [facility] Chloride [Moles/Vol] 98 mmol/L 98 - 10 8 mmol/L [facility] CO2 [Moles/Vol] 33 mmol/L High 21 - 31 mmol/L [facility] Creatinine [Mass/Vol] 0.57 mg/dL Low 0.70 - 1.30 mg/dL [facility] eGFR, CKD-EPI, Male - PINF [facility] Glucose [Mass/Vol] 160 mg/dL 70 - 179 mg/dL [facility] Interpretation and review of laboratory results Abnormal [facility] Osmolality Calc [Osmolality] 295 [facility] Potassium [Moles/Vol] 4.2 mmol/L 3.5 - 5.0 mmol/L [facility] Sodium [Moles/Vol] 138 mmol/L 135 - 145 mmol/L [facility] Urea nitrogen [Mass/Vol] 18 mg/dL 7 - 25 mg/d L [facility] Urea nitrogen/Creatinine [Mass ratio] 32 mg/mg [facility] Anion gap [Moles/Vol] 11 mmol/L Normal 7-17 [facility] Comment on above: Performed By: #### T YPEC #### [facility] (DEFAULT) [address] [place] [address] 28638 Chloride [Moles/Vol] 98 mmol/L Normal 98-108 [facility] Comment on above: Performed By: #### T YPEC #### [facility] (DEFAULT) [address] [place] [address] 34706 CO2 [Moles/Vol] 33 mmol/L High 21-31 [facility] Comment on above: Performed By: #### T YPEC #### [facility] (DEFAULT) [address] [place] [address] 04631 Creatinine [Mass/Vol] 0.57 mg/dL Low 0.70-1.30 [facility] Comment on above: Performed By: #### T YPEC #### [facility] (DEFAULT) [address] [place] [address] 72669 eGFR, CKD-EPI, Male > Normal >=60 [facility] Comment on above: Result Comment: Repo rted eGFR is based on the CKD-EPI 2020 equation using creatinine, age, and sex. Performed By: #### T YPEC #### [facility] (DEFAULT) [address] [place] [address] 76058 Glucose [Mass/Vol] 160 mg/dL Normal Nonfastin -179 mg/dL; Fastin-99 [facility] Comment on above: Performed By: #### T YPEC #### [facility] (DEFAULT) [address] [place] [address] 69927 Osmolality [Osmolality] 295 mosm/kg Normal 278-305 [facility] Comment on above: Performed By: #### T YPEC #### [facility] (DEFAULT) [address] [place] [address] Potassium [Moles/Vol] 4.2 mmol/L Normal 3.5-5.0 [facility] Comment on above: Performed By: #### T YPEC #### [facility] (DEFAULT) [address] [place] [address] Sodium [Moles/Vol] 138 mmol/L Normal 135-145 [facility] Comment on above: Performed By: #### T YPEC #### [facility] (DEFAULT) [address] [place] [address] Urea nitrogen [Mass/Vol] 18 mg/dL Normal 7-25 [facility] Comment on above: Performed By: #### T YPEC #### [facility] (DEFAULT) [address] [place] [address] 81683 Urea nitrogen/Creatinine [Mass ratio] 32 mg/mg Normal [facility] Comment on above: Performed By: #### T YPEC #### [facility] (DEFAULT) [address] [place] [address] 97450 GLUCOSE POCon 10-24-2024 Glucose [Mass/Vol] 152 mg/dL 70 - 179 mg/dL [facility] POC Sample Type [facility] Glucose [Mass/Vol] 173 mg/dL 70 - 179 mg/dL [facility] POC Sample Type [facility] Glucose [Mass/Vol] 210 mg/dL High 70 - 179 mg/dL [facility] Interpretation and review of laboratory results Abnormal [facility] POC Sample Type [facility] Glucose [Mass/Vol] 168 mg/dL 70 - 179 mg/dL [facility] POC Sample Type [facility] HIGH SENSITIVITY TROPONIN I - SINGLE ORDERon 10-24-2024 Troponin I.cardiac High sensitivity method [Mass/Vol] 4 ng/L NINF - 53 ng/L [facility] hs-Troponin I 4 ng/L Normal <53 [facility] Comment on above: Order Comment: Acute Coronary Syndrome (ACS): Initial Evaluation and Management:[email or web address] Performed By: #### T YPEC #### [facility] (DEFAULT) [address] [place] [address] NT-PRO B-TYPE NATRIURETIC PE PTIDEon 10-24-2024 Natriuretic peptide.B prohormone N-Terminal IA [Mass/Vol] 242 pg/mL NINF - 540 pg/mL [facility] Natriuretic peptide B (Bld) [Mass/Vol] 242 pg/mL Normal <=540 [facility] Comment on above: Performed By: #### Y NTBNP #### [facility] (DEFAULT) [address] [place] [address] No Panel Informationon 10-24 Interpretation and review of laboratory results Normal [facility] Portable XR Chest Viewson RADIOLOGY RADIOLOGY [facility] Radiology Study observation (narrative) [facility] XR CHEST 1 VIEW PORTABLEon 0 10-24-2024 [...] have reviewed and approved this report. Normal [facility] CBC,PLATELETSon 10-23-2024 Erythrocyte distribution width (RBC) [Ratio] 13.3 % 10.9 - 14.3 % [facility] Hematocrit (Bld) [Volume fraction] 39.2 % Low 39.6 - 48.8 % [facility] Hemoglobin (Bld) [Mass/Vol] 13.1 g/dL Low 13.4 - 16.8 g/dL [facility] Interpretation and review of laboratory results Abnormal [facility] MCH (RBC) [Entitic mass] 26.4 pg 26. 1 - 33.3 pg [facility] MCHC (RBC) [Mass/Vol] 33.4 g/dL 31.9 - 36.5 g/dL [facility] MCV (RBC) [Entitic vol] 79 fL 79.0 - 94.5 fL [facility] Platelet mean volume (Bld) [Entitic vol] 9.4 fL 8.7 - 12.3 fL [facility] Platelets (Bld) [#/Vol] 250 10*3/uL 146 - 337 K/uL [facility] RBC (Bld) [#/Vol] 4.96 10*6/uL [facility] WBC (Bld) [#/Vol] 7.42 10*3/uL 3.73 - 10. 10 K/uL [facility] Hematocrit (Bld) [Volume fraction] 39.2 % Low 39.6-48.8 [facility] Comment on above: Performed By: #### [facility] #### [facility] (DEFAULT) [address] [address] Hemoglobin (Bld) [Mass/Vol] 13.1 g/dL Low 13.4-16.8 [facility] Comment on above: Performed By: #### H [facility] #### [facility] (DEFAULT) [address] [place] [address] 09011 MCV (RBC) [Entitic vol] 79.0 fL Normal 79.0-94.5 [facility] Comment on above: Performed By: #### H EMOGC #### [facility] (DEFAULT) [address] [place] [address] 86797 Mean Cell Hgb 26.4 pg Normal 26.1-33.3 [facility] Comment on above: Performed By: #### H EMOGC #### [facility] (DEFAULT) [address] [address] Mean Cell Hgb Conc 33.4 g/dL Normal 31.9-36.5 [facility] Comment on above: Performed By: #### H EMOGC #### [facility] (DEFAULT) [address] [place] [address] Platelet mean volume (Bld) [Entitic vol] 9.4 fL Normal 8.7-12.3 [facility] Comment on above: Performed By: #### H EMOGC #### [facility] (DEFAULT) [address] [address] Platelets (Bld) [#/Vol] 250 10*3/uL Normal 146-337 [facility] Comment on above: Performed By: #### H EMOGC #### [facility] (DEFAULT) [address] [address] RBC (Bld) [#/Vol] 4.96 10*6/uL Normal 4.38-5.83 [facility] Comment on above: Performed By: #### H EMOGC #### [facility] (DEFAULT) [address] [address] RBC Distribution 13.3 % Normal 10.9-14.[address] [facility] Comment on above: Performed By: #### H EMOGC #### [facility] (DEFAULT) [address] [place] [address] WBC (Bld) [#/Vol] 7.42 10*3/uL Normal 3.73-10.10 [facility] Comment on above: Performed By: #### [facility] #### [facility] (DEFAULT) [address] [place] [address] 12148 Erythrocyte distribution width (RBC) [Ratio] 13.2 % 10.9 - 14.3 % [facility] Hematocrit (Bld) [Volume fraction] 36.9 % Low 39.6 - 48.8 % [facility] Hemoglobin (Bld) [Mass/Vol] 12.2 g/dL Low 13.4 - 16.8 g/dL [facility] Interpretation and review of laboratory results Abnormal [facility] MCH (RBC) [Entitic mass] 26.7 pg 26. 1 - 33.3 pg [facility] MCHC (RBC) [Mass/Vol] 33.1 g/dL 31.9 - 36.5 g/dL [facility] MCV (RBC) [Entitic vol] 80.7 fL 79.0 - 94.5 fL [facility] Platelet mean volume (Bld) [Entitic vol] 9.6 fL 8.7 - 12.3 fL [facility] Platelets (Bld) [#/Vol] 255 10*3/uL 146 - 337 K/uL [facility] RBC (Bld) [#/Vol] 4.57 10*6/uL [facility] WBC (Bld) [#/Vol] 7.24 10*3/uL 3.73 - 10. 10 K/uL [facility] Hematocrit (Bld) [Volume fraction] 36.9 % Low 39.6-48.8 [facility] Comment on above: Performed By: #### Y NTJOSÉP #### [facility] (DEFAULT) [address] [place] [address] Hemoglobin (Bld) [Mass/Vol] 12.2 g/dL Low 13.4-16.8 [facility] Comment on above: Performed By: #### Y NTBNP #### [facility] (DEFAULT) [address] [place] [address] MCV (RBC) [Entitic vol] 80.7 fL Normal 79.0-94.5 [facility] Comment on above: Performed By: #### Y NTBNP #### [facility] (DEFAULT) [address] [place] [address] 25835 Mean Cell Hgb 26.7 pg Normal 26.1-33.3 [facility] Comment on above: Performed By: #### Y NTBNP #### [facility] (DEFAULT) [address] [place] [address] 02058 Mean Cell Hgb Conc 33.1 g/dL Normal 31.9-36.5 [facility] Comment on above: Performed By: #### Y NTBNP #### [facility] (DEFAULT) [address] [place] [address] 15459 Platelet mean volume (Bld) [Entitic vol] 9.6 fL Normal 8.7-12.3 [facility] Comment on above: Performed By: #### Y NTBNP #### [facility] (DEFAULT) [address] [place] [address] 66391 Platelets (Bld) [#/Vol] 255 10*3/uL Normal 146-337 [facility] Comment on above: Performed By: #### Y NTBNP #### [facility] (DEFAULT) [address] [place] [address] 12322 RBC (Bld) [#/Vol] 4.57 10*6/uL Normal 4.38-5.83 [facility] Comment on above: Performed By: #### Y NTBNP #### [facility] (DEFAULT) [address] [place] [address] 40217 RBC Distribution 13.2 % Normal 10.9-14.[address] [facility] Comment on above: Performed By: #### Y NTBNP #### [facility] (DEFAULT) [address] [place] [address] 85782 WBC (Bld) [#/Vol] 7.24 10*3/uL Normal 3.73-10.10 [facility] Comment on above: Performed By: #### Y NTBNP #### [facility] (DEFAULT) [address] [place] [address] CHEM 7 (LYTES,BUN,CREA,GLUC) on 10-23-2024 Anion gap [Moles/Vol] 11 mmol/L 7 - 17 mmol/L [facility] Chloride [Moles/Vol] 99 mmol/L 98 - 10 8 mmol/L [facility] CO2 [Moles/Vol] 31 mmol/L 21 - 31 mmol/L [facility] Creatinine [Mass/Vol] 0.56 mg/dL Low 0.70 - 1.30 mg/dL [facility] eGFR, CKD-EPI, Male - PINF [facility] Glucose [Mass/Vol] 171 mg/dL 70 - 179 mg/dL [facility] Interpretation and review of laboratory results Abnormal [facility] Osmolality Calc [Osmolality] 293 [facility] Potassium [Moles/Vol] 4.2 mmol/L 3.5 - 5.0 mmol/L [facility] Sodium [Moles/Vol] 137 mmol/L 135 - 145 mmol/L [facility] Urea nitrogen [Mass/Vol] 16 mg/dL 7 - 25 mg/d L [facility] Urea nitrogen/Creatinine [Mass ratio] 29 mg/mg [facility] Anion gap [Moles/Vol] 11 mmol/L Normal 7-17 [facility] Comment on above: Performed By: #### B LDCULT #### [facility] (DEFAULT) [address] [place] [address] Chloride [Moles/Vol] 99 mmol/L Normal 98-108 [facility] Comment on above: Performed By: #### B LDCULT #### [facility] (DEFAULT) [address] [place] [address] CO2 [Moles/Vol] 31 mmol/L Normal 21-31 [facility] Comment on above: Performed By: #### B LDCULT #### [facility] (DEFAULT) [address] [place] [address] 48925 Creatinine [Mass/Vol] 0.56 mg/dL Low 0.70-1.30 [facility] Comment on above: Performed By: #### B LDCULT #### [facility] (DEFAULT) [address] [place] [address] 29762 eGFR, CKD-EPI, Male > Normal >=60 [facility] Comment on above: Result Comment: Repo rted eGFR is based on the CKD-EPI 2020 equation using creatinine, age, and sex. Performed By: #### B LDCULT #### [facility] (DEFAULT) [address] [place] [address] 62438 Glucose [Mass/Vol] 171 mg/dL Normal Nonfastin -179 mg/dL; Fastin-99 [facility] Comment on above: Performed By: #### B LDCULT #### [facility] (DEFAULT) [address] [place] [address] 41493 Osmolality [Osmolality] 293 mosm/kg Normal 278-305 [facility] Comment on above: Performed By: #### B LDCULT #### [facility] (DEFAULT) [address] [place] [address] 98402 Potassium [Moles/Vol] 4.2 mmol/L Normal 3.5-5.0 [facility] Comment on above: Performed By: #### B LDCULT #### [facility] (DEFAULT) [address] [place] [address] 91664 Sodium [Moles/Vol] 137 mmol/L Normal 135-145 [facility] Comment on above: Performed By: #### B LDCULT #### [facility] (DEFAULT) [address] [place] [address] 05958 Urea nitrogen [Mass/Vol] 16 mg/dL Normal 7-25 [facility] Comment on above: Performed By: #### B LDCULT #### [facility] (DEFAULT) [address] [place] [address] Urea nitrogen/Creatinine [Mass ratio] 29 mg/mg Normal [facility] Comment on above: Performed By: #### B LDCULT #### [facility] (DEFAULT) [address] [place] [address] Anion gap [Moles/Vol] 10 mmol/L 7 - 17 mmol/L [facility] Chloride [Moles/Vol] 101 mmol/L 98 - 10 8 mmol/L [facility] CO2 [Moles/Vol] 33 mmol/L High 21 - 31 mmol/L [facility] Creatinine [Mass/Vol] 0.56 mg/dL Low 0.70 - 1.30 mg/dL [facility] eGFR, CKD-EPI, Male - PINF [facility] Glucose [Mass/Vol] 146 mg/dL 70 - 179 mg/dL [facility] Interpretation and review of laboratory results Abnormal [facility] Osmolality Calc [Osmolality] 298 [facility] Potassium [Moles/Vol] 4.2 mmol/L 3.5 - 5.0 mmol/L [facility] Sodium [Moles/Vol] 140 mmol/L 135 - 145 mmol/L [facility] Urea nitrogen [Mass/Vol] 17 mg/dL 7 - 25 mg/d L [facility] Urea nitrogen/Creatinine [Mass ratio] 30 mg/mg [facility] Anion gap [Moles/Vol] 10 mmol/L Normal 7-17 [facility] Comment on above: Performed By: #### T YPEC #### [facility] (DEFAULT) [address] [place] [address] Chloride [Moles/Vol] 101 mmol/L Normal 98-108 [facility] Comment on above: Performed By: #### T YPEC #### [facility] (DEFAULT) [address] [place] [address] 75908 CO2 [Moles/Vol] 33 mmol/L High 21-31 [facility] Comment on above: Performed By: #### T YPEC #### [facility] (DEFAULT) [address] [place] [address] 35225 Creatinine [Mass/Vol] 0.56 mg/dL Low 0.70-1.30 [facility] Comment on above: Performed By: #### T YPEC #### [facility] (DEFAULT) [address] [place] [address] 93537 eGFR, CKD-EPI, Male > Normal >=60 [facility] Comment on above: Result Comment: Repo rted eGFR is based on the CKD-EPI 2020 equation using creatinine, age, and sex. Performed By: #### T YPEC #### [facility] (DEFAULT) [address] [place] [address] 79520 Glucose [Mass/Vol] 146 mg/dL Normal Nonfastin -179 mg/dL; Fastin-99 [facility] Comment on above: Performed By: #### T YPEC #### [facility] (DEFAULT) [address] [place] [address] 71373 Osmolality [Osmolality] 298 mosm/kg Normal 278-305 [facility] Comment on above: Performed By: #### T YPEC #### [facility] (DEFAULT) [address] [place] [address] 80502 Potassium [Moles/Vol] 4.2 mmol/L Normal 3.5-5.0 [facility] Comment on above: Performed By: #### T YPEC #### [facility] (DEFAULT) [address] [place] [address] 59387 Sodium [Moles/Vol] 140 mmol/L Normal 135-145 [facility] Comment on above: Performed By: #### T YPEC #### [facility] (DEFAULT) [address] [place] [address] 45142 Urea nitrogen [Mass/Vol] 17 mg/dL Normal 7-25 [facility] Comment on above: Performed By: #### T YPEC #### [facility] (DEFAULT) [address] [place] [address] Urea nitrogen/Creatinine [Mass ratio] 30 mg/mg Normal [facility] Comment on above: Performed By: #### T YPEC #### [facility] (DEFAULT) [address] [place] [address] GLUCOSE POCon 10-23-2024 Glucose [Mass/Vol] 166 mg/dL 70 - 179 mg/dL [facility] POC Sample Type [facility] Glucose [Mass/Vol] 189 mg/dL High 70 - 179 mg/dL [facility] Interpretation and review of laboratory results Abnormal [facility] POC Sample Type [facility] Glucose [Mass/Vol] 174 mg/dL 70 - 179 mg/dL [facility] POC Sample Type [facility] Glucose [Mass/Vol] 189 mg/dL High 70 - 179 mg/dL [facility] Interpretation and review of laboratory results Abnormal [facility] POC Sample Type [facility] Glucose [Mass/Vol] 113 mg/dL 70 - 179 mg/dL [facility] Glucose [Mass/Vol] 171 mg/dL 70 - 179 mg/dL [facility] Glucose [Mass/Vol] 141 mg/dL 70 - 179 mg/dL [facility] POC Sample Type CAPBL [facility] Glucose [Mass/Vol] 183 mg/dL High 70 - 179 mg/dL [facility] Interpretation and review of laboratory results Abnormal [facility] POC Sample Type CAPBL [facility] No Panel Informationon 10-23 [facility] POC Sample Type CAPBL [facility] VANCOMYCIN LEVEL, TROUGH (NC E DRUG LEVEL)on 10-23-2024 Interpretation and review of laboratory results Normal [facility] Vancomycin trough [Mass/Vol] 17.4 ug/mL [facility] Vancomycin, Trough 17.4 mcg/mL Normal Therapeut ic Range: 10.0-20.0 mcg/mL [facility] Comment on above: Order Comment: Pleas e draw level at specified interval PRIOR to next dose. Performed By: #### V ANCTR #### [facility] (DEFAULT) [address] [address] Bacteria identified Cx Nom ( Bld)on 10-22-2024 Bacteria identified Cx Nom (Unsp spec) NO GROWTH DAY 5 OF 5 [facility] Bacteria identified Cx Nom (Unsp spec) NO GROWTH DAY 5 OF 5 [facility] CBC,PLATELETSon 10-22-2024 Erythrocyte distribution width (RBC) [Ratio] 13.2 % 10.9 - 14.3 % [facility] Hematocrit (Bld) [Volume fraction] 36.4 % Low 39.6 - 48.8 % [facility] Hemoglobin (Bld) [Mass/Vol] 11.6 g/dL Low 13.4 - 16.8 g/dL [facility] Interpretation and review of laboratory results Abnormal [facility] MCH (RBC) [Entitic mass] 26 pg Low 26. 1 - 33.3 pg [facility] MCHC (RBC) [Mass/Vol] 31.9 g/dL 31.9 - 36.5 g/dL [facility] MCV (RBC) [Entitic vol] 81.6 fL 79.0 - 94.5 fL [facility] Platelet mean volume (Bld) [Entitic vol] 9.4 fL 8.7 - 12.3 fL [facility] Platelets (Bld) [#/Vol] 236 10*3/uL 146 - 337 K/uL [facility] RBC (Bld) [#/Vol] 4.46 10*6/uL [facility] WBC (Bld) [#/Vol] 6.47 10*3/uL 3.73 - 10. 10 K/uL [facility] Hematocrit (Bld) [Volume fraction] 36.4 % Low 39.6-48.8 [facility] Comment on above: Performed By: #### X M #### [facility] (DEFAULT) [address] [address] Hemoglobin (Bld) [Mass/Vol] 11.6 g/dL Low 13.4-16.8 [facility] Comment on above: Performed By: #### X M #### [facility] (DEFAULT) [address] [address] MCV (RBC) [Entitic vol] 81.6 fL Normal 79.0-94.5 [facility] Comment on above: Performed By: #### X M #### [facility] (DEFAULT) [address] [address] Mean Cell Hgb 26.0 pg Low 26.1-33.3 [facility] Comment on above: Performed By: #### X M #### [facility] (DEFAULT) [address] [address] Mean Cell Hgb Conc 31.9 g/dL Normal 31.9-36.5 [facility] Comment on above: Performed By: #### X M #### [facility] (DEFAULT) [address] [address] Platelet mean volume (Bld) [Entitic vol] 9.4 fL Normal 8.7-12.3 [facility] Comment on above: Performed By: #### X M #### [facility] (DEFAULT) [address] [place] [address] 03415 Platelets (Bld) [#/Vol] 236 10*3/uL Normal 146-337 [facility] Comment on above: Performed By: #### X M #### [facility] (DEFAULT) [address] [place] [address] 49097 RBC (Bld) [#/Vol] 4.46 10*6/uL Normal 4.38-5.83 [facility] Comment on above: Performed By: #### X M #### [facility] (DEFAULT) [address] [place] [address] 97847 RBC Distribution 13.2 % Normal 10.9-14.[address] [facility] Comment on above: Performed By: #### X M #### [facility] (DEFAULT) [address] [place] [address] 01580 WBC (Bld) [#/Vol] 6.47 10*3/uL Normal 3.73-10.10 [facility] Comment on above: Performed By: #### X M #### [facility] (DEFAULT) [address] [place] [address] 38860 CHEM 7 (LYTES,BUN,CREA,GLUC) on 10-22-2024 Anion gap [Moles/Vol] 8 mmol/L 7 - 17 mmol/L [facility] Chloride [Moles/Vol] 102 mmol/L 98 - 10 8 mmol/L [facility] CO2 [Moles/Vol] 32 mmol/L High 21 - 31 mmol/L [facility] Creatinine [Mass/Vol] 0.56 mg/dL Low 0.70 - 1.30 mg/dL [facility] eGFR, CKD-EPI, Male - PINF [facility] Glucose [Mass/Vol] 138 mg/dL 70 - 179 mg/dL [facility] Interpretation and review of laboratory results Abnormal [facility] Osmolality Calc [Osmolality] 292 [facility] Potassium [Moles/Vol] 4.1 mmol/L 3.5 - 5.0 mmol/L [facility] Sodium [Moles/Vol] 138 mmol/L 135 - 145 mmol/L [facility] Urea nitrogen [Mass/Vol] 15 mg/dL 7 - 25 mg/d L [facility] Urea nitrogen/Creatinine [Mass ratio] 27 mg/mg [facility] Anion gap [Moles/Vol] 8 mmol/L Normal 7-17 [facility] Comment on above: Performed By: #### B LDCULT #### [facility] (DEFAULT) [address] [place] [address] 25149 Chloride [Moles/Vol] 102 mmol/L Normal 98-108 [facility] Comment on above: Performed By: #### B LDCULT #### [facility] (DEFAULT) [address] [place] [address] 95928 CO2 [Moles/Vol] 32 mmol/L High 21-31 [facility] Comment on above: Performed By: #### B LDCULT #### [facility] (DEFAULT) [address] [place] [address] 90753 Creatinine [Mass/Vol] 0.56 mg/dL Low 0.70-1.30 [facility] Comment on above: Performed By: #### B LDCULT #### [facility] (DEFAULT) [address] [place] [address] 42137 eGFR, CKD-EPI, Male > Normal >=60 [facility] Comment on above: Result Comment: Repo rted eGFR is based on the CKD-EPI 1 equation using creatinine, age, and sex. Performed By: #### B LDCULT #### [facility] (DEFAULT) [address] [place] [address] 47197 Glucose [Mass/Vol] 138 mg/dL Normal Nonfastin -179 mg/dL; Fastin-99 [facility] Comment on above: Performed By: #### B LDCULT #### [facility] (DEFAULT) [address] [place] [address] 28768 Osmolality [Osmolality] 292 mosm/kg Normal 278-305 [facility] Comment on above: Performed By: #### B LDCULT #### [facility] (DEFAULT) [address] [place] [address] 25880 Potassium [Moles/Vol] 4.1 mmol/L Normal 3.5-5.0 [facility] Comment on above: Performed By: #### B LDCULT #### [facility] (DEFAULT) [address] [place] [address] 61610 Sodium [Moles/Vol] 138 mmol/L Normal 135-145 [facility] Comment on above: Performed By: #### B LDCULT #### [facility] (DEFAULT) [address] [place] [address] 25273 Urea nitrogen [Mass/Vol] 15 mg/dL Normal 7-25 [facility] Comment on above: Performed By: #### B LDCULT #### [facility] (DEFAULT) [address] [place] [address] 33487 Urea nitrogen/Creatinine [Mass ratio] 27 mg/mg Normal [facility] Comment on above: Performed By: #### B LDCULT #### [facility] (DEFAULT) [address] [place] [address] 84970 Culture, Anaerobic Any Sourc devonte 10-22-2024 CUAN NO COLLECTION INFO GIVEN UNK UNK CALCANEAL BONE COLLECTED IN OR No anaerobic bacteria isolated. Normal [facility] Comment on above: Performed By: #### M 100.2000, M100.3000, M100.4001 ####[facility] [id number] [place], [address] ECGOrdered By: Trip page 10-22-2024 [facility] Work Phone: GLUCOSE POCon 10-22-2024 Glucose [Mass/Vol] 184 mg/dL High 70 - 179 mg/dL [facility] Interpretation and review of laboratory results Abnormal [facility] Glucose [Mass/Vol] 166 mg/dL 70 - 179 mg/dL [facility] Glucose [Mass/Vol] 130 mg/dL 70 - 179 mg/dL [facility] Glucose [Mass/Vol] 147 mg/dL 70 - 179 mg/dL [facility] HIGH SENSITIVITY TROPONIN I - SINGLE ORDERon 10-22-2024 Interpretation and review of laboratory results Normal [facility] Troponin I.cardiac High sensitivity method [Mass/Vol] 4 ng/L NINF - 53 ng/L [facility] hs-Troponin I 4 ng/L Normal <53 [facility] Comment on above: Order Comment: 2 Bot tles (1 Set - consists of 1 Aerobic bottle and 1 Anaerobic bottle) - 1st Peripheral Draw For vacutainer method draw: Fill aerobic bottle first, then anaerobic Results may be compromised due to HIGH VOLUME of the BACT\ALERT bottle EXCEEDING 10mLs, which can be associated with increased contamination. The optimal blood volume is 8-10mLs per aerobic/anaerobic blood culture bottle. Performed By: #### B LDCULT #### [facility] (DEFAULT) [address] [place] [address] 28698 IONIZED CALCIUM, SERUMon Calcium.ionized (Bld) [Moles/Vol] 5.26 mg/dL 4.60 - 5.30 mg/dL [facility] Interpretation and review of laboratory results Normal [facility] ICA 5.26 mg/dL Normal 4.60-5.30 [facility] Comment on above: Performed By: #### I CASST ####[facility] (DEFAULT)[address] [place] [address]41 MAGNESIUMon 10-22-2024 Magnesium [Mass/Vol] 2 mg/dL 1.6 - 2 .6 mg/dL [facility] Magnesium [Mass/Vol] 2.0 mg/dL Normal 1.6-2.6 [facility] Comment on above: Performed By: #### B LDCULT #### [facility] (DEFAULT) [address] [place] [address] No Panel Informationon 10-22 POC Sample Type CAPBL [facility] POC Sample Type CAPBL [facility] Interpretation and review of laboratory results Normal [facility] PHOSPHATE, INORGANICon 10-22 Phosphate [Mass/Vol] 3.3 mg/dL 2.2 - 4 .6 mg/dL [facility] Phosphorous 3.3 mg/dL Normal 2.2-4.6 [facility] Comment on above: Performed By: #### B LDCULT #### [facility] (DEFAULT) [address] [place] [address] 17040 VENOUS BLOOD GASon Base excess Calc (Bld) [Moles/Vol] 9 mmol/L High -3.0 - 3.0 mmol/L [facility] CO2 (Bld) [Partial pressure] 53 mm[Hg] High [facility] HCO3 (Bld) [Moles/Vol] 34 mmol/L High 22 - 29 mmol/L [facility] Interpretation and review of laboratory results Abnormal [facility] Oxygen (Bld) [Partial pressure] 54 mm[Hg] mm Hg [facility] Oxygen saturation in Blood 87 % High 70 - 80 % [facility] pH (Bld) 7.41 [pH] 7.32 - 7.43 [facility] Specimen source Nom (Unsp spec) Venous [facility] Base Excess 9.0 mmol/L High -3.0-3.0 [facility] Comment on above: Performed By: #### X M #### [facility] (DEFAULT) [address] [place] [address] 52287 HCO3 (Bld) [Moles/Vol] 34 mmol/L High 22-29 [facility] Comment on above: Performed By: #### X M #### [facility] (DEFAULT) [address] [place] [address] 33410 Oxygen saturation in Blood 87 % High 70-80 [facility] Comment on above: Performed By: #### X M #### [facility] (DEFAULT) [address] [place] [address] 06637 pCO2, Venous 53 mm Hg High 36-52 [facility] Comment on above: Performed By: #### X M #### [facility] (DEFAULT) [address] [place] [address] 03332 pH, Venous 7.41 Normal 7.32-7.43 [facility] Comment on above: Performed By: #### X M #### [facility] (DEFAULT) [address] [place] [address] 58731 pO2, Venous 54 mm Hg Normal [facility] Comment on above: Result Comment: Veno us pO2 is not recommended for the evaluation of oxygen status, clinical correlation is recommended. Performed By: #### X M #### [facility] (DEFAULT) [address] [place] [address]22 Specimen type Nom (Spec) Venous Normal [facility] Comment on above: Performed By: #### X M #### [facility] (DEFAULT) [address] [place] [address] 76809 ANTI XA LMWH (ENOXAPARIN),*E XACT TIME REQUIRED* 4 HR POSTOrdered By: Helen Motron on 10-21-2024 Interpretation and review of laboratory results Abnormal [facility] LMW Heparin Chromogenic method Qn (PPP) 0.43 Low [facility] ANTI XA LMWH (ENOXAPARIN),*E XACT TIME REQUIRED* 4 HR Janice 10-21-2024 Anti Xa LMWH (Enoxaparin) 4 Hr Post 0.43 Anti-Xa IU/mL Low 0.60-1.00 [facility] Comment on above: Order Comment: For i ndwelling catheters, specimen collection is acceptable on catheter day 1 and 2 only. ? Result Comment: Ther apeutic range applies to 4 hour post dose collections. Performed By: #### U [id number] #### [facility] (DEFAULT) [address] [place] [address] 09850 CBC,PLATELETSon 10-21-2024 Erythrocyte distribution width (RBC) [Ratio] 12.9 % 10.9 - 14.3 % [facility] Hematocrit (Bld) [Volume fraction] 34.8 % Low 39.6 - 48.8 % [facility] Hemoglobin (Bld) [Mass/Vol] 10.8 g/dL Low 13.4 - 16.8 g/dL [facility] Interpretation and review of laboratory results Abnormal [facility] MCH (RBC) [Entitic mass] 25.9 pg Low 26. 1 - 33.3 pg [facility] MCHC (RBC) [Mass/Vol] 31 g/dL Low 31.9 - 36.5 g/dL [facility] MCV (RBC) [Entitic vol] 83.5 fL 79.0 - 94.5 fL [facility] Platelet mean volume (Bld) [Entitic vol] 9.7 fL 8.7 - 12.3 fL [facility] Platelets (Bld) [#/Vol] 228 10*3/uL 146 - 337 K/uL [facility] RBC (Bld) [#/Vol] 4.17 10*6/uL Low [facility] WBC (Bld) [#/Vol] 6.63 10*3/uL 3.73 - 10. 10 K/uL [facility] Hematocrit (Bld) [Volume fraction] 34.8 % Low 39.6-48.8 [facility] Comment on above: Performed By: #### C HM7 #### [facility] (DEFAULT) [address] [place] [address] Hemoglobin (Bld) [Mass/Vol] 10.8 g/dL Low 13.4-16.8 [facility] Comment on above: Performed By: #### C HM7 #### [facility] (DEFAULT) [address] [place] [address]180 MCV (RBC) [Entitic vol] 83.5 fL Normal 79.0-94.5 [facility] Comment on above: Performed By: #### C HM7 #### [facility] (DEFAULT) [address] [place] [address] Mean Cell Hgb 25.9 pg Low 26.1-33.3 [facility] Comment on above: Performed By: #### C HM7 #### [facility] (DEFAULT) [address] [address] Mean Cell Hgb Conc 31.0 g/dL Low 31.9-36.5 [facility] Comment on above: Performed By: #### C HM7 #### [facility] (DEFAULT) [address] [place] [address] Platelet mean volume (Bld) [Entitic vol] 9.7 fL Normal 8.7-12.3 [facility] Comment on above: Performed By: #### C HM7 #### [facility] (DEFAULT) [address] [place] [address] 19491 Platelets (Bld) [#/Vol] 228 10*3/uL Normal 146-337 [facility] Comment on above: Performed By: #### C HM7 #### [facility] (DEFAULT) [address] [place] [address] 32986 RBC (Bld) [#/Vol] 4.17 10*6/uL Low 4.38-5.83 [facility] Comment on above: Performed By: #### C HM7 #### [facility] (DEFAULT) [address] [address] RBC Distribution 12.9 % Normal 10.9-14.[address] [facility] Comment on above: Performed By: #### C HM7 #### [facility] (DEFAULT) [address] [place] [address] 13299 WBC (Bld) [#/Vol] 6.63 10*3/uL Normal 3.73-10.10 [facility] Comment on above: Performed By: #### C HM7 #### [facility] (DEFAULT) [address] [place] [address] 22903 CHEM 7 (LYTES,BUN,CREA,GLUC) on 10-21-2024 Anion gap [Moles/Vol] 10 mmol/L 7 - 17 mmol/L [facility] Chloride [Moles/Vol] 101 mmol/L 98 - 10 8 mmol/L [facility] CO2 [Moles/Vol] 34 mmol/L High 21 - 31 mmol/L [facility] Creatinine [Mass/Vol] 0.76 mg/dL 0.70 - 1.30 mg/dL [facility] eGFR, CKD-EPI, Male - PINF [facility] Glucose [Mass/Vol] 124 mg/dL 70 - 179 mg/dL [facility] Interpretation and review of laboratory results Abnormal [facility] Osmolality Calc [Osmolality] 298 [facility] Potassium [Moles/Vol] 4.1 mmol/L 3.5 - 5.0 mmol/L [facility] Sodium [Moles/Vol] 141 mmol/L 135 - 145 mmol/L [facility] Urea nitrogen [Mass/Vol] 16 mg/dL 7 - 25 mg/d L [facility] Urea nitrogen/Creatinine [Mass ratio] 21 mg/mg [facility] Anion gap [Moles/Vol] 10 mmol/L Normal 7-17 [facility] Comment on above: Performed By: #### Y NTBNP #### [facility] (DEFAULT) [address] [place] [address] Chloride [Moles/Vol] 101 mmol/L Normal 98-108 [facility] Comment on above: Performed By: #### Y NTBNP #### [facility] (DEFAULT) [address] [place] [address]450 CO2 [Moles/Vol] 34 mmol/L High 21-31 [facility] Comment on above: Performed By: #### Y NTBNP #### [facility] (DEFAULT) [address] [place] [address] Creatinine [Mass/Vol] 0.76 mg/dL Normal 0.70-1.30 [facility] Comment on above: Performed By: #### Y NTBNP #### [facility] (DEFAULT) [address] [address] eGFR, CKD-EPI, Male > Normal >=60 [facility] Comment on above: Result Comment: Repo rted eGFR is based on the CKD-EPI 2020 equation using creatinine, age, and sex. Performed By: #### Y NTBNP #### [facility] (DEFAULT) [address] [address] Glucose [Mass/Vol] 124 mg/dL Normal Nonfastin -179 mg/dL; Fastin-99 [facility] Comment on above: Performed By: #### Y NTBNP #### [facility] (DEFAULT) [address] [address] Osmolality [Osmolality] 298 mosm/kg Normal 278-305 [facility] Comment on above: Performed By: #### Y NTBNP #### [facility] (DEFAULT) [address] [address] Potassium [Moles/Vol] 4.1 mmol/L Normal 3.5-5.0 [facility] Comment on above: Performed By: #### Y NTBNP #### [facility] (DEFAULT) [address] [address] Sodium [Moles/Vol] 141 mmol/L Normal 135-145 [facility] Comment on above: Performed By: #### Y NTBNP #### [facility] (DEFAULT) [address] [address] Urea nitrogen [Mass/Vol] 16 mg/dL Normal 7-25 [facility] Comment on above: Performed By: #### Y NTBNP #### [facility] (DEFAULT) [address] [address] Urea nitrogen/Creatinine [Mass ratio] 21 mg/mg Normal [facility] Comment on above: Performed By: #### Y NTBNP #### [facility] (DEFAULT) [address] [place] [address]21 CYSTATIN C AND CREATININE WI TH ESTIMATED GFRon 10-21-2024 Creatinine [Mass/Vol] 0.65 mg/dL Low 0.70 - 1.30 mg/dL [facility] Cystatin C 1.8 mg/L High 0.51 - 1.05 mg/L [facility] EGFR BY CYS C AND CREATININE, MALE 56 Low - PINF [facility] Interpretation and review of laboratory results Abnormal [facility] Creatinine [Mass/Vol] 0.65 mg/dL Low 0.70-1.30 [facility] Comment on above: Performed By: #### C HM7 #### [facility] (DEFAULT) [address] [address] Cystatin C 1.80 mg/L High 0.51-1.05 [facility] Comment on above: Performed By: #### C HM7 #### [facility] (DEFAULT) [address] [place] [address] EGFR BY CYS C AND CREATININE, MALE 57 mL/min/1.73m2 Low >=60 [facility] Comment on above: Result Comment: Repo rted eGFR is based on the CKD-EPI 2020 equation using cystatin C, creatinine, age, and sex. Performed By: #### C HM7 #### [facility] (DEFAULT) [address] [place] [address] GLUCOSE POCon 10-21-2024 Glucose [Mass/Vol] 184 mg/dL High 70 - 179 mg/dL [facility] Glucose [Mass/Vol] 158 mg/dL 70 - 179 mg/dL [facility] Interpretation and review of laboratory results Abnormal [facility] POC Sample Type ARTER [facility] IONIZED CALCIUM, SERUMOrdere d By: Yahir Patton on 10-21-2024 Calcium.ionized (Bld) [Moles/Vol] 5.01 mg/dL 4.60 - 5.30 mg/dL [facility] Interpretation and review of laboratory results Normal [facility] IONIZED CALCIUM, SERUMon ICA 5.01 mg/dL Normal 4.60-5.30 [facility] Comment on above: Performed By: #### C HM7 #### [facility] (DEFAULT) [address] [place] [address] Laboratory - Chemistry and C hemistry - challengeon 10-21-2024 Glucose [Mass/Vol] 134 mg/dL 70 - 179 mg/dL [facility] MAGNESIUMon 10-21-2024 Magnesium [Mass/Vol] 2 mg/dL 1.6 - 2 .6 mg/dL [facility] Magnesium [Mass/Vol] 2.0 mg/dL Normal 1.6-2.6 [facility] Comment on above: Performed By: #### Y NTBNP #### [facility] (DEFAULT) [address] [place] [address] MR Brain WO contraston 10-21 RADIOLOGY RADIOLOGY [facility] Radiology Study observation (narrative) [facility] MR Brain WO contrastOrdered By: Lawrence Cruz on 10-21-2024 [facility] Work Phone: MRI BRAIN WITHOUT CONTRASTon [...] 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 No progressive mass effect. Stable small volume of intraventricular extension of hemorrhage. Normal [facility] No Panel Informationon 10-21 POC Sample Type CAPBL [facility] Interpretation and review of laboratory results Normal [facility] PHOSPHATE, INORGANICon 10-21 Phosphate [Mass/Vol] 3.2 mg/dL 2.2 - 4 .6 mg/dL [facility] Phosphorous 3.2 mg/dL Normal 2.2-4.6 [facility] Comment on above: Performed By: #### Y NTBNP #### [facility] (DEFAULT) [address] [place] [address] Portable XR Chest Viewson RADIOLOGY RADIOLOGY [facility] Radiology Study observation (narrative) [facility] Portable XR Chest ViewsOrder ed By: Tonio Yancey on 10-21-2024 [facility] VANCOMYCIN LEVEL, TROUGH (NC E DRUG LEVEL)on 10-21-2024 Interpretation and review of laboratory results Normal [facility] Vancomycin trough [Mass/Vol] 18.3 ug/mL [facility] Vancomycin, Trough 18.3 mcg/mL Normal Therapeut ic Range: 10.0-20.0 mcg/mL [facility] Comment on above: Order Comment: Pleas e draw level at specified interval PRIOR to next dose. Please hold the dose if level > 20 Performed By: #### X M #### [facility] (DEFAULT) [address] [place] [address] XR CHEST 1 VIEW PORTABLEon 0 10-21-2024 [...] consistent with small effusions and atelectasis. Normal [facility] CBC,PLATELETSon 10-20-2024 Erythrocyte distribution width (RBC) [Ratio] 13 % 10.9 - 14.3 % [facility] Hematocrit (Bld) [Volume fraction] 34.2 % Low 39.6 - 48.8 % [facility] Hemoglobin (Bld) [Mass/Vol] 10.7 g/dL Low 13.4 - 16.8 g/dL [facility] Interpretation and review of laboratory results Abnormal [facility] MCH (RBC) [Entitic mass] 26.1 pg 26. 1 - 33.3 pg [facility] MCHC (RBC) [Mass/Vol] 31.3 g/dL Low 31.9 - 36.5 g/dL [facility] MCV (RBC) [Entitic vol] 83.4 fL 79.0 - 94.5 fL [facility] Platelet mean volume (Bld) [Entitic vol] 9.4 fL 8.7 - 12.3 fL [facility] Platelets (Bld) [#/Vol] 235 10*3/uL 146 - 337 K/uL [facility] RBC (Bld) [#/Vol] 4.1 10*6/uL Low [facility] WBC (Bld) [#/Vol] 6.78 10*3/uL 3.73 - 10. 10 K/uL [facility] Hematocrit (Bld) [Volume fraction] 34.2 % Low 39.6-48.8 [facility] Comment on above: Performed By: #### T YPEC #### [facility] (DEFAULT) [address] [place] [address] Hemoglobin (Bld) [Mass/Vol] 10.7 g/dL Low 13.4-16.8 [facility] Comment on above: Performed By: #### T YPEC #### [facility] (DEFAULT) [address] [place] [address] MCV (RBC) [Entitic vol] 83.4 fL Normal 79.0-94.5 [facility] Comment on above: Performed By: #### T YPEC #### [facility] (DEFAULT) [address] [place] [address] Mean Cell Hgb 26.1 pg Normal 26.1-33.3 [facility] Comment on above: Performed By: #### T YPEC #### [facility] (DEFAULT) [address] [place] [address] Mean Cell Hgb Conc 31.3 g/dL Low 31.9-36.5 [facility] Comment on above: Performed By: #### T YPEC #### [facility] (DEFAULT) [address] [place] [address] Platelet mean volume (Bld) [Entitic vol] 9.4 fL Normal 8.7-12.3 [facility] Comment on above: Performed By: #### T YPEC #### [facility] (DEFAULT) [address] [place] [address] Platelets (Bld) [#/Vol] 235 10*3/uL Normal 146-337 [facility] Comment on above: Performed By: #### T YPEC #### [facility] (DEFAULT) [address] [place] [address] RBC (Bld) [#/Vol] 4.10 10*6/uL Low 4.38-5.83 [facility] Comment on above: Performed By: #### T YPEC #### [facility] (DEFAULT) [address] [place] [address] RBC Distribution 13.0 % Normal 10.9-14.[address] [facility] Comment on above: Performed By: #### T YPEC #### [facility] (DEFAULT) [address] [address] WBC (Bld) [#/Vol] 6.78 10*3/uL Normal 3.73-10.10 [facility] Comment on above: Performed By: #### T YPEC #### [facility] (DEFAULT) [address] [place] [address] CHEM 7 (LYTES,BUN,CREA,GLUC) on 10-20-2024 Anion gap [Moles/Vol] 9 mmol/L 7 - 17 mmol/L [facility] Chloride [Moles/Vol] 102 mmol/L 98 - 10 8 mmol/L [facility] CO2 [Moles/Vol] 36 mmol/L High 21 - 31 mmol/L [facility] Creatinine [Mass/Vol] 0.67 mg/dL Low 0.70 - 1.30 mg/dL [facility] eGFR, CKD-EPI, Male - PINF [facility] Glucose [Mass/Vol] 162 mg/dL 70 - 179 mg/dL [facility] Interpretation and review of laboratory results Abnormal [facility] Osmolality Calc [Osmolality] 304 [facility] Potassium [Moles/Vol] 4.1 mmol/L 3.5 - 5.0 mmol/L [facility] Sodium [Moles/Vol] 143 mmol/L 135 - 145 mmol/L [facility] Urea nitrogen [Mass/Vol] 16 mg/dL 7 - 25 mg/d L [facility] Urea nitrogen/Creatinine [Mass ratio] 24 mg/mg [facility] Anion gap [Moles/Vol] 9 mmol/L Normal 7-17 [facility] Comment on above: Performed By: #### T YPEC #### [facility] (DEFAULT) [address] [place] [address] Chloride [Moles/Vol] 102 mmol/L Normal 98-108 [facility] Comment on above: Performed By: #### T YPEC #### [facility] (DEFAULT) [address] [place] [address] CO2 [Moles/Vol] 36 mmol/L High 21-31 [facility] Comment on above: Performed By: #### T YPEC #### [facility] (DEFAULT) [address] [place] [address] Creatinine [Mass/Vol] 0.67 mg/dL Low 0.70-1.30 [facility] Comment on above: Performed By: #### T YPEC #### [facility] (DEFAULT) [address] [place] [address] eGFR, CKD-EPI, Male > Normal >=60 [facility] Comment on above: Result Comment: Repo rted eGFR is based on the CKD-EPI 2020 equation using creatinine, age, and sex. Performed By: #### T YPEC #### [facility] (DEFAULT) [address] [place] [address] Glucose [Mass/Vol] 162 mg/dL Normal Nonfastin -179 mg/dL; Fastin-99 [facility] Comment on above: Performed By: #### T YPEC #### [facility] (DEFAULT) [address] [place] [address] Osmolality [Osmolality] 304 mosm/kg Normal 278-305 [facility] Comment on above: Performed By: #### T YPEC #### [facility] (DEFAULT) [address] [place] [address] Potassium [Moles/Vol] 4.1 mmol/L Normal 3.5-5.0 [facility] Comment on above: Performed By: #### T YPEC #### [facility] (DEFAULT) [address] [place] [address] Sodium [Moles/Vol] 143 mmol/L Normal 135-145 [facility] Comment on above: Performed By: #### T YPEC #### [facility] (DEFAULT) [address] [place] [address] Urea nitrogen [Mass/Vol] 16 mg/dL Normal 7-25 [facility] Comment on above: Performed By: #### T YPEC #### [facility] (DEFAULT) [address] [place] [address] Urea nitrogen/Creatinine [Mass ratio] 24 mg/mg Normal [facility] Comment on above: Performed By: #### T YPEC #### [facility] (DEFAULT) [address] [place] [address] Anion gap [Moles/Vol] 10 mmol/L 7 - 17 mmol/L [facility] Chloride [Moles/Vol] 99 mmol/L 98 - 10 8 mmol/L [facility] CO2 [Moles/Vol] 35 mmol/L High 21 - 31 mmol/L [facility] Creatinine [Mass/Vol] 0.66 mg/dL Low 0.70 - 1.30 mg/dL [facility] eGFR, CKD-EPI, Male - PINF [facility] Glucose [Mass/Vol] 136 mg/dL 70 - 179 mg/dL [facility] Interpretation and review of laboratory results Abnormal [facility] Osmolality Calc [Osmolality] 296 [facility] Potassium [Moles/Vol] 4 mmol/L 3.5 - 5.0 mmol/L [facility] Sodium [Moles/Vol] 140 mmol/L 135 - 145 mmol/L [facility] Urea nitrogen [Mass/Vol] 16 mg/dL 7 - 25 mg/d L [facility] Urea nitrogen/Creatinine [Mass ratio] 24 mg/mg [facility] Anion gap [Moles/Vol] 10 mmol/L Normal 7-17 [facility] Comment on above: Performed By: #### U [id number] #### [facility] (DEFAULT) [address] [place] [address] Chloride [Moles/Vol] 99 mmol/L Normal 98-108 [facility] Comment on above: Performed By: #### U [id number] #### [facility] (DEFAULT) [address] [place] [address] 9[address] CO2 [Moles/Vol] 35 mmol/L High 21-31 [facility] Comment on above: Performed By: #### U [id number] #### [facility] (DEFAULT) [address] [place] [address]46 Creatinine [Mass/Vol] 0.66 mg/dL Low 0.70-1.30 [facility] Comment on above: Performed By: #### U [id number] #### [facility] (DEFAULT) [address] [place] [address] eGFR, CKD-EPI, Male > Normal >=60 [facility] Comment on above: Result Comment: Repo rted eGFR is based on the CKD-EPI 2020 equation using creatinine, age, and sex. Performed By: #### U [id number] #### [facility] (DEFAULT) [address] [place] [address] Glucose [Mass/Vol] 136 mg/dL Normal Nonfastin -179 mg/dL; Fastin-99 [facility] Comment on above: Performed By: #### U [id number] #### [facility] (DEFAULT) [address] [place] [address] Osmolality [Osmolality] 296 mosm/kg Normal 278-305 [facility] Comment on above: Performed By: #### U [id number] #### [facility] (DEFAULT) [address] [place] [address] Potassium [Moles/Vol] 4.0 mmol/L Normal 3.5-5.0 [facility] Comment on above: Performed By: #### U [id number] #### [facility] (DEFAULT) [address] [place] [address] Sodium [Moles/Vol] 140 mmol/L Normal 135-145 [facility] Comment on above: Performed By: #### U [id number] #### [facility] (DEFAULT) [address] [place] [address] Urea nitrogen [Mass/Vol] 16 mg/dL Normal 7-25 [facility] Comment on above: Performed By: #### U [id number] #### [facility] (DEFAULT) [address] [place] [address] 11451 Urea nitrogen/Creatinine [Mass ratio] 24 mg/mg Normal [facility] Comment on above: Performed By: #### U [id number] #### [facility] (DEFAULT) [address] [place] [address] Anion gap [Moles/Vol] 8 mmol/L 7 - 17 mmol/L [facility] Chloride [Moles/Vol] 99 mmol/L 98 - 10 8 mmol/L [facility] CO2 [Moles/Vol] 39 mmol/L High 21 - 31 mmol/L [facility] Creatinine [Mass/Vol] 0.66 mg/dL Low 0.70 - 1.30 mg/dL [facility] eGFR, CKD-EPI, Male - PINF [facility] Glucose [Mass/Vol] 143 mg/dL 70 - 179 mg/dL [facility] Interpretation and review of laboratory results Abnormal [facility] Osmolality Calc [Osmolality] 300 [facility] Potassium [Moles/Vol] 3.8 mmol/L 3.5 - 5.0 mmol/L [facility] Sodium [Moles/Vol] 142 mmol/L 135 - 145 mmol/L [facility] Urea nitrogen [Mass/Vol] 16 mg/dL 7 - 25 mg/d L [facility] Urea nitrogen/Creatinine [Mass ratio] 24 mg/mg [facility] Anion gap [Moles/Vol] 8 mmol/L Normal 7-17 [facility] Comment on above: Performed By: #### V ANCTR #### [facility] (DEFAULT) [address] [place] [address] Chloride [Moles/Vol] 99 mmol/L Normal 98-108 [facility] Comment on above: Performed By: #### V ANCTR #### [facility] (DEFAULT) [address] [place] [address] 33248 CO2 [Moles/Vol] 39 mmol/L High 21-31 [facility] Comment on above: Performed By: #### V ANCTR #### [facility] (DEFAULT) [address] [place] [address]386 Creatinine [Mass/Vol] 0.66 mg/dL Low 0.70-1.30 [facility] Comment on above: Performed By: #### V ANCTR #### [facility] (DEFAULT) [address] [place] [address] 60968 eGFR, CKD-EPI, Male > Normal >=60 [facility] Comment on above: Result Comment: Repo rted eGFR is based on the CKD-EPI 2020 equation using creatinine, age, and sex. Performed By: #### V ANCTR #### [facility] (DEFAULT) [address] [place] [address] Glucose [Mass/Vol] 143 mg/dL Normal Nonfastin -179 mg/dL; Fastin-99 [facility] Comment on above: Performed By: #### V ANCTR #### [facility] (DEFAULT) [address] [place] [address]444 Osmolality [Osmolality] 300 mosm/kg Normal 278-305 [facility] Comment on above: Performed By: #### V ANCTR #### [facility] (DEFAULT) [address] [place] [address]79 Potassium [Moles/Vol] 3.8 mmol/L Normal 3.5-5.0 [facility] Comment on above: Performed By: #### V ANCTR #### [facility] (DEFAULT) [address] [place] [address] 6[address]71 Sodium [Moles/Vol] 142 mmol/L Normal 135-145 [facility] Comment on above: Performed By: #### V ANCTR #### [facility] (DEFAULT) [address] [place] [address]187 Urea nitrogen [Mass/Vol] 16 mg/dL Normal 7-25 [facility] Comment on above: Performed By: #### V ANCTR #### [facility] (DEFAULT) [address] [place] [address]149 Urea nitrogen/Creatinine [Mass ratio] 24 mg/mg Normal [facility] Comment on above: Performed By: #### V ANCTR #### [facility] (DEFAULT) [address] [place] [id number] HEAD WITHOUT CONTRASTon 0 10-20-2024 CT HEAD WITHOUT CONTRAST EXAM: CT HEAD WITHOUT CONTRAST, 10/20/2024 1:29 AM COMPARISON: CT HEAD [...] increasing mass effect or midline shift. Normal [facility] CT Head WO contraston 2024 RADIOLOGY RADIOLOGY [facility] Radiology Study observation (narrative) [facility] CT Head WO contrastOrdered B y: Saqib Irby on 10-20-2024 [facility] Work Phone: IONIZED CALCIUM, SERUMOrdere d By: Anitra Carlos on 10-20-2024 Calcium.ionized (Bld) [Moles/Vol] 4.85 mg/dL 4.60 - 5.30 mg/dL [facility] Interpretation and review of laboratory results Normal [facility] IONIZED CALCIUM, SERUMon ICA 4.85 mg/dL Normal 4.60-5.30 [facility] Comment on above: Performed By: #### T YPEC #### [facility] (DEFAULT) [address] [place] [address] MAGNESIUMon 10-20-2024 Magnesium [Mass/Vol] 1.8 mg/dL 1.6 - 2 .6 mg/dL [facility] Magnesium [Mass/Vol] 1.8 mg/dL Normal 1.6-2.6 [facility] Comment on above: Performed By: #### V ANCTR #### [facility] (DEFAULT) [address] [address] No Panel Informationon 10-20 Interpretation and review of laboratory results Normal [facility] PHOSPHATE, INORGANICon 10-20 Phosphate [Mass/Vol] 3.3 mg/dL 2.2 - 4 .6 mg/dL [facility] Phosphorous 3.3 mg/dL Normal 2.2-4.6 [facility] Comment on above: Performed By: #### V ANCTR #### [facility] (DEFAULT) [address] [place] [address] Portable XR Chest Viewson RADIOLOGY RADIOLOGY [facility] Radiology Study observation (narrative) [facility] Portable XR Chest ViewsOrder ed By: Beni Rivera on 10-20-2024 [facility] Work Phone: VANCOMYCIN LEVEL, TROUGH (NC E DRUG LEVEL)on 10-20-2024 Interpretation and review of laboratory results Abnormal [facility] Vancomycin trough [Mass/Vol] 20.1 ug/mL High [facility] Vancomycin, Trough 20.1 mcg/mL High Therapeut ic Range: 10.0-20.0 mcg/mL [facility] Comment on above: Order Comment: Pleas e draw level at specified interval PRIOR to next dose. Please hold next dose if level > 20 Performed By: #### X M #### [facility] (DEFAULT) [address] [place] [address] XR CHEST 1 VIEW PORTABLEon 0 10-20-2024 [...] appreciable change since the prior study. Normal [facility] ANTI XA LMWH (ENOXAPARIN),*E XACT TIME REQUIRED* 4 HR POSTOrdered By: Sally Zaragoza on 10-19-2024 Interpretation and review of laboratory results Abnormal [facility] LMW Heparin Chromogenic method Qn (PPP) 0.41 [facility] ANTI XA LMWH (ENOXAPARIN),*E XACT TIME REQUIRED* 4 HR Janice 10-19-2024 Anti Xa LMWH (Enoxaparin) 4 Hr Post 0.41 Anti-Xa IU/mL Low 0.60-1.00 [facility] Comment on above: Order Comment: Pleas e draw level at specified interval PRIOR to next dose. Result Comment: Ther apeutic range applies to 4 hour post dose collections. Performed By: #### V ANCTR #### [facility] (DEFAULT) [address] [place] [address] ARTERIAL BLOOD GASon 025 Base excess Calc (Bld) [Moles/Vol] 18.6 mmol/L High -3.0 - 3.0 mmol/L [facility] CO2 (Bld) [Partial pressure] 63 mm[Hg] High [facility] HCO3 (Bld) [Moles/Vol] 43 mmol/L High 22 - 28 mmol/L [facility] Interpretation and review of laboratory results Abnormal [facility] Oxygen (Bld) [Partial pressure] 78 mm[Hg] Low [facility] Oxygen saturation in Blood 98 % 94 - 98 % [facility] pH (Bld) 7.44 [pH] 7.35 - 7.45 [facility] Specimen source Nom (Unsp spec) Arterial [facility] Base Excess 18.6 mmol/L High -3.0-3.0 [facility] Comment on above: Performed By: #### X M #### [facility] (DEFAULT) [address] [address] HCO3 (Bld) [Moles/Vol] 43 mmol/L High 22-28 [facility] Comment on above: Performed By: #### X M #### [facility] (DEFAULT) [address] [place] [address] Oxygen saturation in Blood 98 % Normal 94-98 [facility] Comment on above: Performed By: #### X M #### [facility] (DEFAULT) [address] [place] [address] pCO2 63 mm Hg High 32-48 [facility] Comment on above: Performed By: #### X M #### [facility] (DEFAULT) [address] [place] [address]11 pH, Arterial 7.44 Normal 7.35-7.45 [facility] Comment on above: Performed By: #### X M #### [facility] (DEFAULT) [address] [place] [address] pO2 78 mm Hg Low 83-108 [facility] Comment on above: Performed By: #### X M #### [facility] (DEFAULT) [address] [place] [address] Specimen type Nom (Spec) Arterial Normal [facility] Comment on above: Performed By: #### X M #### [facility] (DEFAULT) [address] [place] [address] Base excess Calc (Bld) [Moles/Vol] 13.6 mmol/L High -3.0 - 3.0 mmol/L [facility] CO2 (Bld) [Partial pressure] 62 mm[Hg] High [facility] HCO3 (Bld) [Moles/Vol] 38 mmol/L High 22 - 28 mmol/L [facility] Inhaled oxygen concentration [facility] Interpretation and review of laboratory results Abnormal [facility] Oxygen (Bld) [Partial pressure] 75 mm[Hg] Low [facility] Oxygen saturation in Blood 97 % 94 - 98 % [facility] pH (Bld) 7.4 [pH] 7.35 - 7.45 [facility] Specimen source Nom (Unsp spec) Arterial [facility] Base Excess 13.6 mmol/L High -3.0-3.0 [facility] Comment on above: Performed By: #### G AS5 #### [facility] (DEFAULT) [address] [place] [address] FIO2 Normal [facility] Comment on above: Result Comment: 2L N C Performed By: #### G AS5 #### [facility] (DEFAULT) [address] [place] [address]451 HCO3 (Bld) [Moles/Vol] 38 mmol/L High 22-28 [facility] Comment on above: Performed By: #### G AS5 #### [facility] (DEFAULT) [address] [place] [address] Oxygen saturation in Blood 97 % Normal 94-98 [facility] Comment on above: Performed By: #### Jose AS5 #### [facility] (DEFAULT) [address] [place] [address] pCO2 62 mm Hg High 32-48 [facility] Comment on above: Performed By: #### Jose AS5 #### [facility] (DEFAULT) [address] [place] [address]296 pH, Arterial 7.40 Normal 7.35-7.45 [facility] Comment on above: Performed By: #### G AS5 #### [facility] (DEFAULT) [address] [place] [address] pO2 75 mm Hg Low 83-108 [facility] Comment on above: Performed By: #### Jose AS5 #### [facility] (DEFAULT) [address] [place] [address] Specimen type Nom (Spec) Arterial Normal [facility] Comment on above: Performed By: #### Jose AS5 #### [facility] (DEFAULT) [address] [place] [address] CBC,PLATELETSon 10-19-2024 Erythrocyte distribution width (RBC) [Ratio] 13.3 % 10.9 - 14.3 % [facility] Hematocrit (Bld) [Volume fraction] 35.8 % Low 39.6 - 48.8 % [facility] Hemoglobin (Bld) [Mass/Vol] 11.3 g/dL Low 13.4 - 16.8 g/dL [facility] Interpretation and review of laboratory results Abnormal [facility] MCH (RBC) [Entitic mass] 26.5 pg 26. 1 - 33.3 pg [facility] MCHC (RBC) [Mass/Vol] 31.6 g/dL Low 31.9 - 36.5 g/dL [facility] MCV (RBC) [Entitic vol] 84 fL 79.0 - 94.5 fL [facility] Platelet mean volume (Bld) [Entitic vol] 9.1 fL 8.7 - 12.3 fL [facility] Platelets (Bld) [#/Vol] 250 10*3/uL 146 - 337 K/uL [facility] RBC (Bld) [#/Vol] 4.26 10*6/uL Low [facility] WBC (Bld) [#/Vol] 8.75 10*3/uL 3.73 - 10. 10 K/uL [facility] Hematocrit (Bld) [Volume fraction] 35.8 % Low 39.6-48.8 [facility] Comment on above: Performed By: #### T YPEC #### [facility] (DEFAULT) [address] [address] Hemoglobin (Bld) [Mass/Vol] 11.3 g/dL Low 13.4-16.8 [facility] Comment on above: Performed By: #### T YPEC #### [facility] (DEFAULT) [address] [place] [address] MCV (RBC) [Entitic vol] 84.0 fL Normal 79.0-94.5 [facility] Comment on above: Performed By: #### T YPEC #### [facility] (DEFAULT) [address] [place] [address] Mean Cell Hgb 26.5 pg Normal 26.1-33.3 [facility] Comment on above: Performed By: #### T YPEC #### [facility] (DEFAULT) [address] [address] Mean Cell Hgb Conc 31.6 g/dL Low 31.9-36.5 [facility] Comment on above: Performed By: #### T YPEC #### [facility] (DEFAULT) [address] [address] Platelet mean volume (Bld) [Entitic vol] 9.1 fL Normal 8.7-12.3 [facility] Comment on above: Performed By: #### T YPEC #### [facility] (DEFAULT) [address] [address] Platelets (Bld) [#/Vol] 250 10*3/uL Normal 146-337 [facility] Comment on above: Performed By: #### T YPEC #### [facility] (DEFAULT) [address] [address] RBC (Bld) [#/Vol] 4.26 10*6/uL Low 4.38-5.83 [facility] Comment on above: Performed By: #### T YPEC #### [facility] (DEFAULT) [address] [address] RBC Distribution 13.3 % Normal 10.9-14.[address] [facility] Comment on above: Performed By: #### T YPEC #### [facility] (DEFAULT) [address] [address] WBC (Bld) [#/Vol] 8.75 10*3/uL Normal 3.73-10.10 [facility] Comment on above: Performed By: #### T YPEC #### [facility] (DEFAULT) [address] [address] CHEM 7 (LYTES,BUN,CREA,GLUC) on 10-19-2024 Anion gap [Moles/Vol] 11 mmol/L 7 - 17 mmol/L [facility] Chloride [Moles/Vol] 96 mmol/L Low 98 - 10 8 mmol/L [facility] CO2 [Moles/Vol] 37 mmol/L High 21 - 31 mmol/L [facility] Creatinine [Mass/Vol] 0.66 mg/dL Low 0.70 - 1.30 mg/dL [facility] eGFR, CKD-EPI, Male - PINF [facility] Glucose [Mass/Vol] 177 mg/dL 70 - 179 mg/dL [facility] Interpretation and review of laboratory results Abnormal [facility] Osmolality Calc [Osmolality] 298 [facility] Potassium [Moles/Vol] 3.8 mmol/L 3.5 - 5.0 mmol/L [facility] Sodium [Moles/Vol] 140 mmol/L 135 - 145 mmol/L [facility] Urea nitrogen [Mass/Vol] 14 mg/dL 7 - 25 mg/d L [facility] Urea nitrogen/Creatinine [Mass ratio] 21 mg/mg [facility] Anion gap [Moles/Vol] 11 mmol/L Normal 7-17 [facility] Comment on above: Performed By: #### Y NTBNP #### [facility] (DEFAULT) [address] [address] Chloride [Moles/Vol] 96 mmol/L Low 98-108 [facility] Comment on above: Performed By: #### Y NTBNP #### [facility] (DEFAULT) [address] [place] [address] CO2 [Moles/Vol] 37 mmol/L High 21-31 [facility] Comment on above: Performed By: #### Y NTBNP #### [facility] (DEFAULT) [address] [address] Creatinine [Mass/Vol] 0.66 mg/dL Low 0.70-1.30 [facility] Comment on above: Performed By: #### Y NTBNP #### [facility] (DEFAULT) [address] [address] eGFR, CKD-EPI, Male > Normal >=60 [facility] Comment on above: Result Comment: Repo rted eGFR is based on the CKD-EPI 2020 equation using creatinine, age, and sex. Performed By: #### Y NTBNP #### [facility] (DEFAULT) [address] [place] [address] Glucose [Mass/Vol] 177 mg/dL Normal Nonfastin -179 mg/dL; Fastin-99 [facility] Comment on above: Performed By: #### Y NTBNP #### [facility] (DEFAULT) [address] [place] [address] Osmolality [Osmolality] 298 mosm/kg Normal 278-305 [facility] Comment on above: Performed By: #### Y NTBNP #### [facility] (DEFAULT) [address] [place] [address] Potassium [Moles/Vol] 3.8 mmol/L Normal 3.5-5.0 [facility] Comment on above: Performed By: #### Y NTBNP #### [facility] (DEFAULT) [address] [place] [address] Sodium [Moles/Vol] 140 mmol/L Normal 135-145 [facility] Comment on above: Performed By: #### Y NTBNP #### [facility] (DEFAULT) [address] [place] [address] Urea nitrogen [Mass/Vol] 14 mg/dL Normal 7-25 [facility] Comment on above: Performed By: #### Y NTBNP #### [facility] (DEFAULT) [address] [place] [address] Urea nitrogen/Creatinine [Mass ratio] 21 mg/mg Normal [facility] Comment on above: Performed By: #### Y NTBNP #### [facility] (DEFAULT) [address] [place] [address] Anion gap [Moles/Vol] 10 mmol/L 7 - 17 mmol/L [facility] Chloride [Moles/Vol] 100 mmol/L 98 - 10 8 mmol/L [facility] CO2 [Moles/Vol] 37 mmol/L High 21 - 31 mmol/L [facility] Creatinine [Mass/Vol] 0.6 mg/dL Low 0.70 - 1.30 mg/dL [facility] eGFR, CKD-EPI, Male - PINF [facility] Glucose [Mass/Vol] 138 mg/dL 70 - 179 mg/dL [facility] Interpretation and review of laboratory results Abnormal [facility] Osmolality Calc [Osmolality] 300 [facility] Potassium [Moles/Vol] 3.5 mmol/L 3.5 - 5.0 mmol/L [facility] Sodium [Moles/Vol] 143 mmol/L 135 - 145 mmol/L [facility] Urea nitrogen [Mass/Vol] 12 mg/dL 7 - 25 mg/d L [facility] Urea nitrogen/Creatinine [Mass ratio] 20 mg/mg [facility] Anion gap [Moles/Vol] 10 mmol/L Normal 7-17 [facility] Comment on above: Performed By: #### U [id number] #### [facility] (DEFAULT) [address] [place] [address] Chloride [Moles/Vol] 100 mmol/L Normal 98-108 [facility] Comment on above: Performed By: #### U [id number] #### [facility] (DEFAULT) [address] [place] [address] CO2 [Moles/Vol] 37 mmol/L High 21-31 [facility] Comment on above: Performed By: #### U [id number] #### [facility] (DEFAULT) [address] [place] [address] Creatinine [Mass/Vol] 0.60 mg/dL Low 0.70-1.30 [facility] Comment on above: Performed By: #### U [id number] #### [facility] (DEFAULT) [address] [place] [address] eGFR, CKD-EPI, Male > Normal >=60 [facility] Comment on above: Result Comment: Repo rted eGFR is based on the CKD-EPI 2020 equation using creatinine, age, and sex. Performed By: #### U [id number] #### [facility] (DEFAULT) [address] [place] [address] Glucose [Mass/Vol] 138 mg/dL Normal Nonfastin -179 mg/dL; Fastin-99 [facility] Comment on above: Performed By: #### U [id number] #### [facility] (DEFAULT) [address] [place] [address] Osmolality [Osmolality] 300 mosm/kg Normal 278-305 [facility] Comment on above: Performed By: #### U [id number] #### [facility] (DEFAULT) [address] [place] [address] Potassium [Moles/Vol] 3.5 mmol/L Normal 3.5-5.0 [facility] Comment on above: Performed By: #### U [id number] #### [facility] (DEFAULT) [address] [place] [address] Sodium [Moles/Vol] 143 mmol/L Normal 135-145 [facility] Comment on above: Performed By: #### U [id number] #### [facility] (DEFAULT) [address] [place] [address] Urea nitrogen [Mass/Vol] 12 mg/dL Normal 7-25 [facility] Comment on above: Performed By: #### U [id number] #### [facility] (DEFAULT) [address] [place] [address] Urea nitrogen/Creatinine [Mass ratio] 20 mg/mg Normal [facility] Comment on above: Performed By: #### U [id number] #### [facility] (DEFAULT) [address] [place] [address] CYSTATIN C AND CREATININE WI TH ESTIMATED GFRon 10-19-2024 Creatinine [Mass/Vol] 0.55 mg/dL Low 0.70 - 1.30 mg/dL [facility] Cystatin C 1.68 mg/L High 0.51 - 1.05 mg/L [facility] EGFR BY CYS C AND CREATININE, MALE 62 - PINF [facility] Interpretation and review of laboratory results Abnormal [facility] Creatinine [Mass/Vol] 0.55 mg/dL Low 0.70-1.30 [facility] Comment on above: Performed By: #### U [id number] #### [facility] (DEFAULT) [address] [place] [address] Cystatin C 1.68 mg/L High 0.51-1.05 [facility] Comment on above: Performed By: #### U [id number] #### [facility] (DEFAULT) [address] [place] [address] EGFR BY CYS C AND CREATININE, MALE 62 mL/min/1.73m2 Normal >=60 [facility] Comment on above: Result Comment: Repo rted eGFR is based on the CKD-EPI 2020 equation using cystatin C, creatinine, age, and sex. Performed By: #### U [id number] #### [facility] (DEFAULT) [address] [place] [address] GLUCOSE POCon 10-19-2024 Glucose [Mass/Vol] 149 mg/dL 70 - 179 mg/dL [facility] POC Sample Type CAPBL [facility] Glucose [Mass/Vol] 176 mg/dL 70 - 179 mg/dL [facility] Glucose [Mass/Vol] 185 mg/dL High 70 - 179 mg/dL [facility] Interpretation and review of laboratory results Abnormal [facility] POC Sample Type CAPBL [facility] POC Sample Type ARTER [facility] Glucose [Mass/Vol] 110 mg/dL 70 - 179 mg/dL [facility] POC Sample Type CAPBL [facility] Glucose [Mass/Vol] 186 mg/dL High 70 - 179 mg/dL [facility] Glucose [Mass/Vol] 236 mg/dL High 70 - 179 mg/dL [facility] Glucose [Mass/Vol] 143 mg/dL 70 - 179 mg/dL [facility] IONIZED CALCIUM, SERUMOrdere d By: Jyothi Cantu on 10-19-2024 Calcium.ionized (Bld) [Moles/Vol] 4.85 mg/dL 4.60 - 5.30 mg/dL [facility] Interpretation and review of laboratory results Normal [facility] IONIZED CALCIUM, SERUMon ICA 4.85 mg/dL Normal 4.60-5.30 [facility] Comment on above: Performed By: #### X M #### [facility] (DEFAULT) [address] [address] MAGNESIUMon 10-19-2024 Magnesium [Mass/Vol] 2 mg/dL 1.6 - 2 .6 mg/dL [facility] Magnesium [Mass/Vol] 2.0 mg/dL Normal 1.6-2.6 [facility] Comment on above: Performed By: #### B LDCULT #### [facility] (DEFAULT) [address] [address] NT-PRO B-TYPE NATRIURETIC PE PTIDEon 10-19-2024 Interpretation and review of laboratory results Normal [facility] Natriuretic peptide.B prohormone N-Terminal IA [Mass/Vol] 473 pg/mL NINF - 540 pg/mL [facility] Natriuretic peptide B (Bld) [Mass/Vol] 473 pg/mL Normal <=540 [facility] Comment on above: Performed By: #### Y NTBNP #### [facility] (DEFAULT) [address] [address] No Panel Informationon 10-19 [facility] Interpretation and review of laboratory results Abnormal [facility] POC Sample Type CAPBL [facility] Interpretation and review of laboratory results Normal [facility] PHOSPHATE, INORGANICon 10-19 Phosphate [Mass/Vol] 3.3 mg/dL 2.2 - 4 .6 mg/dL [facility] Phosphorous 3.3 mg/dL Normal 2.2-4.6 [facility] Comment on above: Performed By: #### U [id number] #### [facility] (DEFAULT) [address] [place] [address] Portable XR Chest Viewson RADIOLOGY RADIOLOGY [facility] Radiology Study observation (narrative) [facility] Portable XR Chest ViewsOrder ed By: Nina Morris on 10-19-2024 [facility] Work Phone: SCREEN: MRSA/MSSAOrdered By: Nils Valencia on 10-19-2024 Interpretation and review of laboratory results Normal [facility] Methicillin Resistant S. Aureus By Pcr Negative Negative [facility] Staphylococcus Aureus By Pcr Negative Negative [facility] Wound Cultureon 10-19-2024 WC Normal [facility] Comment on above: Performed By: #### M 100.2000, M100.3000, M100.4001 ####[facility] [id number] [place], [place], [id number] XR CHEST 1 VIEW PORTABLEon 0 10-19-2024 [...] have reviewed and approved this report. Normal [facility] ARTERIAL BLOOD GASon 025 Base excess Calc (Bld) [Moles/Vol] 7.7 mmol/L High -3.0 - 3.0 mmol/L [facility] CO2 (Bld) [Partial pressure] 54 mm[Hg] High [facility] HCO3 (Bld) [Moles/Vol] 33 mmol/L High 22 - 28 mmol/L [facility] Interpretation and review of laboratory results Abnormal [facility] Oxygen (Bld) [Partial pressure] 73 mm[Hg] Low [facility] Oxygen saturation in Blood 96 % 94 - 98 % [facility] pH (Bld) 7.39 [pH] 7.35 - 7.45 [facility] Specimen source Nom (Unsp spec) Arterial [facility] Base Excess 7.7 mmol/L High -3.0-3.0 [facility] Comment on above: Performed By: #### X M #### [facility] (DEFAULT) [address] [address] HCO3 (Bld) [Moles/Vol] 33 mmol/L High 22-28 [facility] Comment on above: Performed By: #### X M #### [facility] (DEFAULT) [address] [address] Oxygen saturation in Blood 96 % Normal 94-98 [facility] Comment on above: Performed By: #### X M #### [facility] (DEFAULT) [address] [address] [address] pCO2 54 mm Hg High 32-48 [facility] Comment on above: Performed By: #### X M #### [facility] (DEFAULT) [address] [place] [address]107 pH, Arterial 7.39 Normal 7.35-7.45 [facility] Comment on above: Performed By: #### X M #### [facility] (DEFAULT) [address] [place] [address] pO2 73 mm Hg Low 83-108 [facility] Comment on above: Performed By: #### X M #### [facility] (DEFAULT) [address] [place] [address] Specimen type Nom (Spec) Arterial Normal [facility] Comment on above: Performed By: #### X M #### [facility] (DEFAULT) [address] [place] [address] 17496 CBC,PLATELETSon 10-18-2024 Erythrocyte distribution width (RBC) [Ratio] 13.3 % 10.9 - 14.3 % [facility] Hematocrit (Bld) [Volume fraction] 34.5 % Low 39.6 - 48.8 % [facility] Hemoglobin (Bld) [Mass/Vol] 11.2 g/dL Low 13.4 - 16.8 g/dL [facility] Interpretation and review of laboratory results Abnormal [facility] MCH (RBC) [Entitic mass] 26.7 pg 26. 1 - 33.3 pg [facility] MCHC (RBC) [Mass/Vol] 32.5 g/dL 31.9 - 36.5 g/dL [facility] MCV (RBC) [Entitic vol] 82.1 fL 79.0 - 94.5 fL [facility] Platelet mean volume (Bld) [Entitic vol] 9.2 fL 8.7 - 12.3 fL [facility] Platelets (Bld) [#/Vol] 259 10*3/uL 146 - 337 K/uL [facility] RBC (Bld) [#/Vol] 4.2 10*6/uL Low [facility] WBC (Bld) [#/Vol] 9.62 10*3/uL 3.73 - 10. 10 K/uL [facility] Hematocrit (Bld) [Volume fraction] 34.5 % Low 39.6-48.8 [facility] Comment on above: Performed By: #### U [id number] #### [facility] (DEFAULT) [address] [address] Hemoglobin (Bld) [Mass/Vol] 11.2 g/dL Low 13.4-16.8 [facility] Comment on above: Performed By: #### U [id number] #### [facility] (DEFAULT) [address] [address] MCV (RBC) [Entitic vol] 82.1 fL Normal 79.0-94.5 [facility] Comment on above: Performed By: #### U [id number] #### [facility] (DEFAULT) [address] [address] Mean Cell Hgb 26.7 pg Normal 26.1-33.3 [facility] Comment on above: Performed By: #### U [id number] #### [facility] (DEFAULT) [address] [address] Mean Cell Hgb Conc 32.5 g/dL Normal 31.9-36.5 [facility] Comment on above: Performed By: #### U [id number] #### [facility] (DEFAULT) [address] [place] [address] Platelet mean volume (Bld) [Entitic vol] 9.2 fL Normal 8.7-12.3 [facility] Comment on above: Performed By: #### U [id number] #### [facility] (DEFAULT) [address] [address] Platelets (Bld) [#/Vol] 259 10*3/uL Normal 146-337 [facility] Comment on above: Performed By: #### U [id number] #### [facility] (DEFAULT) [address] [place] [address] RBC (Bld) [#/Vol] 4.20 10*6/uL Low 4.38-5.83 [facility] Comment on above: Performed By: #### U [id number] #### [facility] (DEFAULT) [address] [place] [address] RBC Distribution 13.3 % Normal 10.9-14.[address] [facility] Comment on above: Performed By: #### U [id number] #### [facility] (DEFAULT) [address] [place] [address] WBC (Bld) [#/Vol] 9.62 10*3/uL Normal 3.73-10.10 [facility] Comment on above: Performed By: #### U [id number] #### [facility] (DEFAULT) [address] [place] [address] CHEM 7 (LYTES,BUN,CREA,GLUC) on 10-18-2024 Anion gap [Moles/Vol] 10 mmol/L 7 - 17 mmol/L [facility] Chloride [Moles/Vol] 102 mmol/L 98 - 10 8 mmol/L [facility] CO2 [Moles/Vol] 34 mmol/L High 21 - 31 mmol/L [facility] Creatinine [Mass/Vol] 0.58 mg/dL Low 0.70 - 1.30 mg/dL [facility] eGFR, CKD-EPI, Male - PINF [facility] Glucose [Mass/Vol] 187 mg/dL High 70 - 179 mg/dL [facility] Interpretation and review of laboratory results Abnormal [facility] Osmolality Calc [Osmolality] 302 [facility] Potassium [Moles/Vol] 3.8 mmol/L 3.5 - 5.0 mmol/L [facility] Sodium [Moles/Vol] 142 mmol/L 135 - 145 mmol/L [facility] Urea nitrogen [Mass/Vol] 13 mg/dL 7 - 25 mg/d L [facility] Urea nitrogen/Creatinine [Mass ratio] 22 mg/mg [facility] Anion gap [Moles/Vol] 10 mmol/L Normal 7-17 [facility] Comment on above: Performed By: #### V ANCTR #### [facility] (DEFAULT) [address] [place] [address] Chloride [Moles/Vol] 102 mmol/L Normal 98-108 [facility] Comment on above: Performed By: #### V ANCTR #### [facility] (DEFAULT) [address] [place] [address] CO2 [Moles/Vol] 34 mmol/L High 21-31 [facility] Comment on above: Performed By: #### V ANCTR #### [facility] (DEFAULT) [address] [place] [address] Creatinine [Mass/Vol] 0.58 mg/dL Low 0.70-1.30 [facility] Comment on above: Performed By: #### V ANCTR #### [facility] (DEFAULT) [address] [place] [address] eGFR, CKD-EPI, Male > Normal >=60 [facility] Comment on above: Result Comment: Repo rted eGFR is based on the CKD-EPI 2020 equation using creatinine, age, and sex. Performed By: #### V ANCTR #### [facility] (DEFAULT) [address] [place] [address] Glucose [Mass/Vol] 187 mg/dL High Nonfastin -179 mg/dL; Fastin-99 [facility] Comment on above: Performed By: #### V ANCTR #### [facility] (DEFAULT) [address] [place] [address] Osmolality [Osmolality] 302 mosm/kg Normal 278-305 [facility] Comment on above: Performed By: #### V ANCTR #### [facility] (DEFAULT) [address] [place] [address] Potassium [Moles/Vol] 3.8 mmol/L Normal 3.5-5.0 [facility] Comment on above: Performed By: #### V ANCTR #### [facility] (DEFAULT) [address] [place] [address] Sodium [Moles/Vol] 142 mmol/L Normal 135-145 [facility] Comment on above: Performed By: #### V ANCTR #### [facility] (DEFAULT) [address] [place] [address] Urea nitrogen [Mass/Vol] 13 mg/dL Normal 7-25 [facility] Comment on above: Performed By: #### V ANCTR #### [facility] (DEFAULT) [address] [place] [address] Urea nitrogen/Creatinine [Mass ratio] 22 mg/mg Normal [facility] Comment on above: Performed By: #### V ANCTR #### [facility] (DEFAULT) [address] [place] [address] Anion gap [Moles/Vol] 12 mmol/L 7 - 17 mmol/L [facility] Chloride [Moles/Vol] 103 mmol/L 98 - 10 8 mmol/L [facility] CO2 [Moles/Vol] 29 mmol/L 21 - 31 mmol/L [facility] Creatinine [Mass/Vol] 0.52 mg/dL Low 0.70 - 1.30 mg/dL [facility] eGFR, CKD-EPI, Male - PINF [facility] Glucose [Mass/Vol] 245 mg/dL High 70 - 179 mg/dL [facility] Interpretation and review of laboratory results Abnormal [facility] Osmolality Calc [Osmolality] 302 [facility] Potassium [Moles/Vol] 3.9 mmol/L 3.5 - 5.0 mmol/L [facility] Sodium [Moles/Vol] 140 mmol/L 135 - 145 mmol/L [facility] Urea nitrogen [Mass/Vol] 12 mg/dL 7 - 25 mg/d L [facility] Urea nitrogen/Creatinine [Mass ratio] 23 mg/mg [facility] Anion gap [Moles/Vol] 12 mmol/L Normal 7-17 [facility] Comment on above: Performed By: #### B LDCULT #### [facility] (DEFAULT) [address] [place] [address] Chloride [Moles/Vol] 103 mmol/L Normal 98-108 [facility] Comment on above: Performed By: #### B LDCULT #### [facility] (DEFAULT) [address] [place] [address] CO2 [Moles/Vol] 29 mmol/L Normal 21-31 [facility] Comment on above: Performed By: #### B LDCULT #### [facility] (DEFAULT) [address] [place] [address] Creatinine [Mass/Vol] 0.52 mg/dL Low 0.70-1.30 [facility] Comment on above: Performed By: #### B LDCULT #### [facility] (DEFAULT) [address] [place] [address] eGFR, CKD-EPI, Male > Normal >=60 [facility] Comment on above: Result Comment: Repo rted eGFR is based on the CKD-EPI 2020 equation using creatinine, age, and sex. Performed By: #### B LDCULT #### [facility] (DEFAULT) [address] [place] [address] Glucose [Mass/Vol] 245 mg/dL High Nonfastin -179 mg/dL; Fastin-99 [facility] Comment on above: Performed By: #### B LDCULT #### [facility] (DEFAULT) [address] [place] [address] Osmolality [Osmolality] 302 mosm/kg Normal 278-305 [facility] Comment on above: Performed By: #### B LDCULT #### [facility] (DEFAULT) [address] [place] [address] Potassium [Moles/Vol] 3.9 mmol/L Normal 3.5-5.0 [facility] Comment on above: Performed By: #### B LDCULT #### [facility] (DEFAULT) [address] [place] [address] Sodium [Moles/Vol] 140 mmol/L Normal 135-145 [facility] Comment on above: Performed By: #### B LDCULT #### [facility] (DEFAULT) [address] [place] [address] Urea nitrogen [Mass/Vol] 12 mg/dL Normal 7-25 [facility] Comment on above: Performed By: #### B LDCULT #### [facility] (DEFAULT) [address] [place] [address] Urea nitrogen/Creatinine [Mass ratio] 23 mg/mg Normal [facility] Comment on above: Performed By: #### B LDCULT #### [facility] (DEFAULT) [address] [place] [address] HEAD WITHOUT CONTRASTon 0 10-18-2024 CT HEAD WITHOUT CONTRAST EXAM: CT HEAD WITHOUT CONTRAST, 10/18/2024 7:51 AM COMPARISON: CT HEAD [...] in the left temporal occipital lobes Normal [facility] CT Head WO contraston 2024 RADIOLOGY RADIOLOGY [facility] WO contrastOrdered B y: Annamarie Del Castillo on 10-18-2024 [facility] Work Phone: GLUCOSE POCon 10-18-2024 Glucose [Mass/Vol] 220 mg/dL High 70 - 179 mg/dL [facility] Glucose [Mass/Vol] 212 mg/dL High 70 - 179 mg/dL [facility] Glucose [Mass/Vol] 252 mg/dL High 70 - 179 mg/dL [facility] Interpretation and review of laboratory results Abnormal [facility] POC Sample Type ARTER [facility] Glucose [Mass/Vol] 219 mg/dL High 70 - 179 mg/dL [facility] Glucose [Mass/Vol] 236 mg/dL High 70 - 179 mg/dL [facility] Glucose [Mass/Vol] 244 mg/dL High 70 - 179 mg/dL [facility] POC Sample Type VENO [facility] IONIZED CALCIUM, SERUMOrdere d By: Sohan Lynn on 10-18-2024 Calcium.ionized (Bld) [Moles/Vol] 4.73 mg/dL 4.60 - 5.30 mg/dL [facility] Interpretation and review of laboratory results Normal [facility] IONIZED CALCIUM, SERUMon ICA 4.73 mg/dL Normal 4.60-5.30 [facility] Comment on above: Performed By: #### X M #### [facility] (DEFAULT) [address] [place] [address] MAGNESIUMon 10-18-2024 Magnesium [Mass/Vol] 2 mg/dL 1.6 - 2 .6 mg/dL [facility] Magnesium [Mass/Vol] 2.0 mg/dL Normal 1.6-2.6 [facility] Comment on above: Performed By: #### B LDCULT #### [facility] (DEFAULT) [address] [place] [address] No Panel Informationon 10-18 Interpretation and review of laboratory results Abnormal [facility] POC Sample Type ARTER [facility] Interpretation and review of laboratory results Abnormal [facility] POC Sample Type CAPBL [facility] Interpretation and review of laboratory results Normal [facility] PHOSPHATE, INORGANICon 10-18 Phosphate [Mass/Vol] 3.4 mg/dL 2.2 - 4 .6 mg/dL [facility] Phosphorous 3.4 mg/dL Normal 2.2-4.6 [facility] Comment on above: Performed By: #### B LDCULT #### [facility] (DEFAULT) [address] [place] [address] PLATELET COUNTon 10-18-2024 Interpretation and review of laboratory results Normal [facility] Platelet mean volume (Bld) [Entitic vol] 9.2 fL 8.7 - 12.3 fL [facility] Platelets (Bld) [#/Vol] 256 10*3/uL 146 - 337 K/uL [facility] Platelet mean volume (Bld) [Entitic vol] 9.2 fL Normal 8.7-12.3 [facility] Comment on above: Performed By: #### C HM7 #### [facility] (DEFAULT) [address] [place] [address] Platelets (Bld) [#/Vol] 256 10*3/uL Normal 146-337 [facility] Comment on above: Performed By: #### C HM7 #### [facility] (DEFAULT) [address] [address] Portable XR Chest Viewson RADIOLOGY RADIOLOGY [facility] Radiology Study observation (narrative) [facility] SCREEN: MRSA/MSSAon 10-19-19 25 Methicillin Resistant S. Aureus By Pcr Negative Normal Negative [facility] Comment on above: Order Comment: Colle ct [...] by the Clinical Microbiology Laboratory at The [facility]. It has not been cleared or approved by the FDA.The laboratory is regulated under CLIA as qualified to perform high-complexity testing. This test is used for clinical purposes. It should not be regarded as investigational or for research. Performed By: #### X M #### [facility] (DEFAULT) [address] [address] Staphylococcus Aureus By Pcr Negative Normal Negative [facility] Comment on above: Order Comment: Colle ct [...] by the Clinical Microbiology Laboratory at The [facility]. It has not been cleared or approved by the FDA.The laboratory is regulated under CLIA as qualified to perform high-complexity testing. This test is used for clinical purposes. It should not be regarded as investigational or for research. Performed By: #### X M #### [facility] (DEFAULT) [address] [address] SODIUMon 10-18-2024 Interpretation and review of laboratory results Normal [facility] Sodium [Moles/Vol] 142 mmol/L 135 - 145 mmol/L [facility] Sodium [Moles/Vol] 142 mmol/L Normal 135-145 [facility] Comment on above: Order Comment: Pleas e collect 2 hrs s/p 3% NS bolus when given. Performed By: #### X M #### [facility] (DEFAULT) [address] [place] [address] Interpretation and review of laboratory results Normal [facility] Sodium [Moles/Vol] 143 mmol/L 135 - 145 mmol/L [facility] Sodium [Moles/Vol] 143 mmol/L Normal 135-145 [facility] Comment on above: Order Comment: For i ndwelling catheters, specimen collection is acceptable on catheter day 1 and 2 only. ? Performed By: #### U [id number] #### [facility] (DEFAULT) [address] [place] [address] VANCOMYCIN LEVEL, TROUGH (NC E DRUG LEVEL)on 10-18-2024 Interpretation and review of laboratory results Abnormal [facility] Vancomycin trough [Mass/Vol] 24.2 ug/mL High [facility] Vancomycin, Trough 24.2 mcg/mL High Therapeut ic Range: 10.0-20.0 mcg/mL [facility] Comment on above: Order Comment: Pleas e draw level 1 hour PRIOR to 1800 vancomycin dose. Performed By: #### C HM7 #### [facility] (DEFAULT) [address] [place] [address] Wound Cultureon 10-18-2024 WC Normal [facility] Comment on above: Performed By: #### M 100.4001, M100.3000, M100.2000 ####[facility] [id number] [place], [place], [id number] XR CHEST 1 VIEW PORTABLEon 0 10-18-2024 [...] IMPRESSION: No major change, see above. Normal [facility] XR FOOT RIGHT 3+ VIEWSon XR FOOT [...] along the posterior superior calcaneal margin. Normal [facility] XR Foot - right 3 Viewson RADIOLOGY RADIOLOGY [facility] Radiology Study observation (narrative) [facility] Foot - right 3 ViewsOrder ed By: Rogelio Samuel on 10-18-2024 [facility] Work Phone: ARTERIAL BLOOD GASon 025 Base excess Calc (Bld) [Moles/Vol] 5.7 mmol/L High -3.0 - 3.0 mmol/L [facility] CO2 (Bld) [Partial pressure] 44 mm[Hg] [facility] HCO3 (Bld) [Moles/Vol] 30 mmol/L High 22 - 28 mmol/L [facility] Inhaled oxygen concentration 40 % [facility] Interpretation and review of laboratory results Abnormal [facility] Oxygen (Bld) [Partial pressure] 80 mm[Hg] Low [facility] Oxygen saturation in Blood 98 % 94 - 98 % [facility] PF Ratio 200 [facility] pH (Bld) 7.44 [pH] 7.35 - 7.45 [facility] Specimen source Nom (Unsp spec) Arterial [facility] Base Excess 5.7 mmol/L High -3.0-3.0 [facility] Comment on above: Performed By: #### X M #### [facility] (DEFAULT) [address] [place] [address] FIO2 40 % Normal [facility] Comment on above: Performed By: #### X M #### [facility] (DEFAULT) [address] [place] [address]14 HCO3 (Bld) [Moles/Vol] 30 mmol/L High 22-28 [facility] Comment on above: Performed By: #### X M #### [facility] (DEFAULT) [address] [place] [address] 77160 Oxygen saturation in Blood 98 % Normal 94-98 [facility] Comment on above: Performed By: #### X M #### [facility] (DEFAULT) [address] [place] [address]65 pCO2 44 mm Hg Normal 32-48 [facility] Comment on above: Performed By: #### X M #### [facility] (DEFAULT) [address] [place] [address] 35178 PF Ratio 200 Normal [facility] Comment on above: Performed By: #### X M #### [facility] (DEFAULT) [address] [place] [address] 92491 pH, Arterial 7.44 Normal 7.35-7.45 [facility] Comment on above: Performed By: #### X M #### [facility] (DEFAULT) [address] [place] [address] 12222 pO2 80 mm Hg Low 83-108 [facility] Comment on above: Performed By: #### X M #### [facility] (DEFAULT) [address] [address] Specimen type Nom (Spec) Arterial Normal [facility] Comment on above: Performed By: #### X M #### [facility] (DEFAULT) [address] [address] BETA-HYDROXYBUTYRATE, SERUMo n 10-17-2024 Beta hydroxybutyrate [Moles/Vol] 0.85 mmol/L High NINF - 0.27 mmol/L [facility] Interpretation and review of laboratory results Abnormal [facility] Beta Hydroxybutyrate 0.85 mmol/L High <0.27 [facility] Comment on above: Order Comment: This test has not been cleared or approved by the FDA. The laboratory is regulated under CLIA as qualified to perform high-complexity testing. This test is used for clinical purposes. It should not be regarded as investigational or for research. Result Comment: Beta -hydroxybutyrate >= 3.0 mmol/L is indicative of ketosis. Performed By: #### Y NTBNP #### [facility] (DEFAULT) [address] [address] BLOOD CULTUREon 10-17-2024 Bacteria identified Cx Nom (Unsp spec) NO GROWTH DAY 5 OF 5 Normal [facility] Comment on above: Order Comment: 2 Bot tles (1 Set - consists of 1 Aerobic bottle and 1 Anaerobic bottle) - 1st Peripheral Draw For vacutainer method draw: Fill aerobic bottle first, then anaerobic Results may be compromised due to HIGH VOLUME of the BACT\ALERT bottle EXCEEDING 10mLs, which can be associated with increased contamination. The optimal blood volume is 8-10mLs per aerobic/anaerobic blood culture bottle. Performed By: #### B LDCULT #### [facility] (DEFAULT) [address] [place] [address] Order Comment: 2 Bot tles (1 Set - consists of 1 Aerobic bottle and 1 Anaerobic bottle) -1st Peripheral DrawFor vacutainer method draw: Fill aerobic bottle first, then anaerobicResults may be compromised due to HIGH VOLUME of the BACT\ALERT bottle EXCEEDING 10mLs, which can be associated with increased contamination. The optimal blood volume is 8-10mLs per aerobic/anaerobic blood culture bottle. Performed By: #### X M #### [facility] (DEFAULT) [address] [place] [address] CHEM 7 (LYTES,BUN,CREA,GLUC) on 10-17-2024 Anion gap [Moles/Vol] 15 mmol/L 7 - 17 mmol/L [facility] Chloride [Moles/Vol] 100 mmol/L 98 - 10 8 mmol/L [facility] CO2 [Moles/Vol] 27 mmol/L 21 - 31 mmol/L [facility] Creatinine [Mass/Vol] 0.46 mg/dL Low 0.70 - 1.30 mg/dL [facility] eGFR, CKD-EPI, Male - PINF [facility] Glucose [Mass/Vol] 252 mg/dL High 70 - 179 mg/dL [facility] Interpretation and review of laboratory results Abnormal [facility] Osmolality Calc [Osmolality] 299 [facility] Potassium [Moles/Vol] 4.3 mmol/L 3.5 - 5.0 mmol/L [facility] Sodium [Moles/Vol] 138 mmol/L 135 - 145 mmol/L [facility] Urea nitrogen [Mass/Vol] 12 mg/dL 7 - 25 mg/d L [facility] Urea nitrogen/Creatinine [Mass ratio] 26 mg/mg [facility] Anion gap [Moles/Vol] 15 mmol/L Normal 7-17 [facility] Comment on above: Performed By: #### U [id number] #### [facility] (DEFAULT) [address] [place] [address] Chloride [Moles/Vol] 100 mmol/L Normal 98-108 [facility] Comment on above: Performed By: #### U [id number] #### [facility] (DEFAULT) [address] [place] [address] CO2 [Moles/Vol] 27 mmol/L Normal 21-31 [facility] Comment on above: Performed By: #### U [id number] #### [facility] (DEFAULT) [address] [place] [address] Creatinine [Mass/Vol] 0.46 mg/dL Low 0.70-1.30 [facility] Comment on above: Performed By: #### U [id number] #### [facility] (DEFAULT) [address] [place] [address] 71995 eGFR, CKD-EPI, Male > Normal >=60 [facility] Comment on above: Result Comment: Repo rted eGFR is based on the CKD-EPI 2020 equation using creatinine, age, and sex. Performed By: #### U [id number] #### [facility] (DEFAULT) [address] [place] [address] 34814 Glucose [Mass/Vol] 252 mg/dL High Nonfastin -179 mg/dL; Fastin-99 [facility] Comment on above: Performed By: #### U [id number] #### [facility] (DEFAULT) [address] [place] [address] 27144 Osmolality [Osmolality] 299 mosm/kg Normal 278-305 [facility] Comment on above: Performed By: #### U [id number] #### [facility] (DEFAULT) [address] [place] [address] 79822 Potassium [Moles/Vol] 4.3 mmol/L Normal 3.5-5.0 [facility] Comment on above: Performed By: #### U [id number] #### [facility] (DEFAULT) [address] [place] [address] 20609 Sodium [Moles/Vol] 138 mmol/L Normal 135-145 [facility] Comment on above: Performed By: #### U [id number] #### [facility] (DEFAULT) [address] [place] [address] [place] [address] Urea nitrogen [Mass/Vol] 12 mg/dL Normal 7-25 [facility] Comment on above: Performed By: #### U [id number] #### [facility] (DEFAULT) [address] [place] [address] Urea nitrogen/Creatinine [Mass ratio] 26 mg/mg Normal [facility] Comment on above: Performed By: #### U [id number] #### [facility] (DEFAULT) [address] [place] [address] CT ANGIO BRAIN/NECKon 2024 CT ANGIO BRAIN/NECK [...] effusion. Degenerative changes of the spine. IMPRESSION: \ 1. Examination is equivocal for mid/distal left [...] discussed the critical finding/s of possible left [employer]ESS [employer] occlusion with Kristen Ramon MD on 10/16/2024 8:57 PM. I personally viewed and interpreted these images and I have reviewed and approved this report. Normal [facility] CT HEAD WITHOUT CONTRASTon 0 10-17-2024 CT HEAD WITHOUT CONTRAST EXAM: CT HEAD WITHOUT CONTRAST, 10/17/2024 3:12 AM COMPARISON: CT STROKE [...] Examination is otherwise not significant changed. Normal [facility] CT Head WO contraston 2024 RADIOLOGY RADIOLOGY [facility] Radiology Study observation (narrative) [facility] CT Head WO contrastOrdered B y: Michael Lopes on 10-17-2024 [facility] Work Phone: CT Head and CT Brain for per fusion and CT angiogram Head vessels WO and W contrast Lily 10-17-2024 RADIOLOGY RADIOLOGY [facility] Cardiac echo study Procedure Ordered By: Joel Luo on 10-17-2024 Ao peak diane 1.41 m/s [facility] Work Phone: AV LVOT peak gradient 2 mmHg [facility] Work Phone: AV peak gradient 8 mmHG [facility] Work Phone: AV Velocity Ratio 0.52 [facility] Work Phone: WALT (continuity Vmax) 2.18 cm2 [facility] Work Phone: WALT index (continuity Vmax) 0.82 m/s [facility] Work Phone: Body surface area Derived from formula 2.65 m2 [facility] Work Phone: BP EF 74 % [facility] Work Phone: DI (Vmax) 0.52 [facility] Work Phone: EST RAP 15 mmHg [facility] Work Phone: [phone] EST RVSP 49 mmHg [facility] Work Phone: [phone] FS 45 % [facility] Work Phone: [phone] IVC ostium 2.93 cm [facility] Work Phone: [phone] IVS 1.2 cm [facility] Work Phone: [phone] LA ESV BP (MOD) 138 [facility]: [phone] LA ESV BP (MOD) index 52 mL/m2 [facility] Work Phone: [phone] LA ESV SP 2CH (MOD) 131 [facility] Phone: [phone] LA ESV SP 4CH (MOD) 142 [facility] Work Phone: [phone] LV EDV BP 129 mL [facility] Work Phone: [phone] LV ESV BP 34 mL [facility] Work Phone: LV mass 280.47 g [facility] Work Phone: [phone] LV Mass Index 105.8 g/m2 [facility] Work Phone: [phone] LV RWT 0.43 [facility] Work Phone: [phone] LV stroke volume BP (ml) 95 mL [facility] Work Phone: [phone] LV stroke volume index BP 35.85 mL/m2 [facility] Work Phone: LVIDD 5.6 cm [facility] Work Phone: LVIDS 3.1 cm [facility] Work Phone: LVOT area 4.15 cm2 [facility] Work Phone: LVOT diameter 2.3 cm [facility] Work Phone: LVOT peak diane 0.74 m/s [facility] Work Phone: MV pk E diane 1.13 m/s [facility] Work Phone: [phone] [facility] E[facility] LV BIPLANE SYSTOLIC VOLUME INDEX 12.83 mL/m2 [facility] Work Phone: [facility] ECHO LV BP DIASTOLIC VOLUME INDEX 48.68 mL/m2 [facility] Work Phone: PV peak gradient 4 mmHg [facility] Work Phone: PV PK DIANE 1.03 m/s [facility] Work Phone: PW 1.2 cm [facility] Work Phone: RA area 4CH (MOD) 29.2 cm2 [facility] Work Phone: RA vol index 4CH (MOD) 44.91 mL/m2 [facility] Work Phone: Right atrium volume 4 chamber method of disks 119 mL [facility] Work Phone: RV Area diastolic 25.2 cm2 [facility] Work Phone: RV Area systolic 15 cm2 [facility] Work Phone: RV basal diam 3.66 cm [facility] Work Phone: RV Fractional area change 40.5 % [facility] Work Phone: RV long diam 8.18 cm [facility] Work Phone: RV mid diam 2.18 cm [facility] Work Phone: RV S' 12.4 cm/s [facility] Work Phone: TAPSE 1.79 cm [facility] Work Phone: [phone] TR pk grad 34 mmHg [facility] Work Phone: [phone] TR pk diane 2.92 m/s [facility] Work Phone: [phone] [facility] Work Phone: Cardiac echo study Procedure on 10-17-2024 [facility] Radiology Study observation (narrative) [facility] ECHOCARDIOGRAMon 10-17-2024 Echocardiography Technically difficult study. The left ventricular chamber [...] from the original result were not included. [facility] Facility [facility] Patient Information Patient Name Lani Zaragoza [...] Role Read Date Joel Luo MD Echo [place] 10/17/2024 Wall Scoring Score Index: 1.00 The [...] study: str (more content not included)... Normal [facility] EXTRA MICROon 10-17-2024 [facility] HIGH SENSITIVITY TROPONIN I - SINGLE ORDERon 10-17-2024 Interpretation and review of laboratory results Normal [facility] Troponin I.cardiac High sensitivity method [Mass/Vol] 6 ng/L NINF - 53 ng/L [facility] hs-Troponin I 6 ng/L Normal <53 [facility] Comment on above: Order Comment: Acute Coronary Syndrome (ACS): Initial Evaluation and Management:[email or web address] Performed By: #### Y NTBNP #### [facility] (DEFAULT) [address] [place] [address] LACTATE, BLOODon 10-17-2024 Interpretation and review of laboratory results Normal [facility] Lactate [Moles/Vol] 1.3 mmol/L 0.5 - 1. 6 mmol/L [facility] Lactate, Blood 1.3 mmol/L Normal 0.5-1.6 [facility] Comment on above: Performed By: #### C HM7 #### [facility] (DEFAULT) [address] [place] [address] LIPID PANEL W CALCULATED LDL on 10-17-2024 Cholesterol [Mass/Vol] 165 mg/dL NINF - 200 mg/dL [facility] Cholesterol in HDL [Mass/Vol] 37 mg/dL Low 40 - PINF mg/dL [facility] Cholesterol in LDL [Mass/Vol] 105 mg/dL High 0 - 99 mg/dL [facility] Cholesterol non HDL [Mass/Vol] 128 mg/dL NINF - 130 mg/dL [facility] Cholesterol.total/Cholest medhat in HDL [Mass ratio] 4.5 {ratio} High NINF - 4.5 [facility] Interpretation and review of laboratory results Abnormal [facility] Triglyceride [Mass/Vol] 113 mg/dL NINF - 150 mg/dL [facility] LIPID PANEL WITH REFLEX TO M EASURED LDLon 10-17-2024 Cholesterol [Mass/Vol] 168 mg/dL NINF - 200 mg/dL [facility] Cholesterol in HDL [Mass/Vol] 38 mg/dL Low 40 - PINF mg/dL [facility] Cholesterol in LDL [Mass/Vol] 106 mg/dL High 0 - 99 mg/dL [facility] Cholesterol non HDL [Mass/Vol] 130 mg/dL High NINF - 130 mg/dL [facility] Cholesterol.total/Cholest medhat in HDL [Mass ratio] 4.4 {ratio} NINF - 4.5 [facility] Interpretation and review of laboratory results Abnormal [facility] Triglyceride [Mass/Vol] 119 mg/dL NINF - 150 mg/dL [facility] MAGNESIUMon 10-17-2024 Interpretation and review of laboratory results Normal [facility] Magnesium [Mass/Vol] 1.7 mg/dL 1.6 - 2 .6 mg/dL [facility] NT-PRO B-TYPE NATRIURETIC PE PTIDEon 10-17-2024 Interpretation and review of laboratory results Abnormal [facility] Natriuretic peptide.B prohormone N-Terminal IA [Mass/Vol] 962 pg/mL High NINF - 540 pg/mL [facility] Natriuretic peptide B (Bld) [Mass/Vol] 962 pg/mL High <=540 [facility] Comment on above: Performed By: #### Y NTBNP #### [facility] (DEFAULT) [address] [place] [address] No Panel Informationon 10-17 [facility] PROCALCITONINon 10-17-2024 Interpretation and review of laboratory results Normal [facility] Procalcitonin [Mass/Vol] 0.05 ng/mL TAWANA F - 0.50 ng/mL [facility] Portable XR Chest Viewson RADIOLOGY RADIOLOGY [facility] Radiology Study observation (narrative) [facility] RADIOLOGY RADIOLOGY [facility] Portable XR Chest ViewsOrder ed By: Ozzy Frederick on 10-17-2024 [facility] Work Phone: Portable XR Chest ViewsOrder ed By: Mikhail Kinsey on 10-17-2024 [facility] Work Phone: SODIUMon 10-17-2024 Interpretation and review of laboratory results Normal [facility] Sodium [Moles/Vol] 140 mmol/L 135 - 145 mmol/L [facility] Sodium [Moles/Vol] 140 mmol/L Normal 135-145 [facility] Comment on above: Performed By: #### X M #### [facility] (DEFAULT) [address] [place] [address] Interpretation and review of laboratory results Normal [facility] Sodium [Moles/Vol] 138 mmol/L 135 - 145 mmol/L [facility] Sodium [Moles/Vol] 138 mmol/L Normal 135-145 [facility] Comment on above: Order Comment: While on 3% Hypertonic Saline. Performed By: #### Y NTBNP #### [facility] (DEFAULT) [address] [place] [address] 21825 URINALYSIS REFLEX TO CULTURE PERFORMABLEon 10-17-2024 Appearance (U) Clear Clear [facility] Bacteria LM Ql (Urine sed) ABSENT ABSENT [facility] Color (U) Yellow Yellow [facility] Epithelial cells.squamous LM Ql (Urine sed) 0-2/hpf 0-2/hpf, 3-5/hpf = 1+ [facility] Glucose Test strip (U) [Mass/Vol] 500 mg/dL Abnormal Negative [facility] Interpretation and review of laboratory results Abnormal [facility] Ketones (U) [Mass/Vol] 15 mg/dL = Small Abnormal Negativ e [facility] Leukocyte esterase Test strip Ql (U) Negative Negative [facility] Nitrite Ql (U) Negative Negative [facility] pH (U) 5.5 [pH] 5.0 - 7.0 [facility] Protein (U) [Mass/Vol] 30 mg/dL Abnormal Negative [facility] RBC (U) [#/Vol] Negative Negative [facility] RBC LM.HPF (Urine sed) [#/Area] 0-2 [facility] Specific gravity (U) [Rel density] 1.025 1.001 - 1.035 [facility] Urobilinogen (U) [Mass/Vol] 0.2 E.U./dL 0.2 E.U/dL, 1.0 E.U/dL [facility] WBC LM.HPF (Urine sed) [#/Area] 0 - 5 [facility] Appearance (U) Clear Normal Clear [facility] Comment on above: Order Comment: For i ndwelling catheters, specimen collection is acceptable on catheter day 1 and 2 only. ? Performed By: #### U [id number] #### [facility] (DEFAULT) [address] [place] [address] 59412 Bacteria ABSENT Normal ABSENT [facility] Comment on above: Order Comment: For i ndwelling catheters, specimen collection is acceptable on catheter day 1 and 2 only. ? Performed By: #### U [id number] #### [facility] (DEFAULT) [address] [place] [address] 05915 Blood Urine Negative Normal Negative [facility] Comment on above: Order Comment: For i ndwelling catheters, specimen collection is acceptable on catheter day 1 and 2 only. ? Performed By: #### U [id number] #### [facility] (DEFAULT) [address] [place] [address]88 Color (U) Yellow Normal Yellow [facility] Comment on above: Order Comment: For i ndwelling catheters, specimen collection is acceptable on catheter day 1 and 2 only. ? Performed By: #### U [id number] #### [facility] (DEFAULT) [address] [place] [address] 99182 Glucose Ql (U) 500 mg/dL Abnormal Negative [facility] Comment on above: Order Comment: For i ndwelling catheters, specimen collection is acceptable on catheter day 1 and 2 only. ? Performed By: #### U [id number] #### [facility] (DEFAULT) [address] [place] [address] 23062 Ketones Ql (U) 15 mg/dL = Small Abnormal Negative [facility] Comment on above: Order Comment: For i ndwelling catheters, specimen collection is acceptable on catheter day 1 and 2 only. ? Performed By: #### U [id number] #### [facility] (DEFAULT) [address] [place] [address] 23322 Leukocyte esterase Test strip Ql (U) Negative Normal Negative [facility] Comment on above: Order Comment: For i ndwelling catheters, specimen collection is acceptable on catheter day 1 and 2 only. ? Performed By: #### U [id number] #### [facility] (DEFAULT) [address] [place] [address] 22549 Nitrites Urine Negative Normal Negative [facility] Comment on above: Order Comment: For i ndwelling catheters, specimen collection is acceptable on catheter day 1 and 2 only. ? Performed By: #### U [id number] #### [facility] (DEFAULT) [address] [place] [address] 02811 pH (U) 5.5 [pH] Normal 5.0-7.0 [facility] Comment on above: Order Comment: For i ndwelling catheters, specimen collection is acceptable on catheter day 1 and 2 only. ? Performed By: #### U [id number] #### [facility] (DEFAULT) [address] [place] [address] 76011 Protein Urine 30 mg/dL Abnormal Negative [facility] Comment on above: Order Comment: For i ndwelling catheters, specimen collection is acceptable on catheter day 1 and 2 only. ? Performed By: #### U [id number] #### [facility] (DEFAULT) [address] [place] [address] 59064 RBC Urine 0-2 Normal 0-2 [facility] Comment on above: Order Comment: For i ndwelling catheters, specimen collection is acceptable on catheter day 1 and 2 only. ? Performed By: #### U [id number] #### [facility] (DEFAULT) [address] [place] [address] 59034 Specific [place] Urine 1.025 Normal 1.001-1.035 [facility] Comment on above: Order Comment: For i ndwelling catheters, specimen collection is acceptable on catheter day 1 and 2 only. ? Performed By: #### U [id number] #### [facility] (DEFAULT) [address] [place] [address] 53005 Squamous/Epithelial Cells, Urine 0-2/hpf Normal 0-2/hpf, 3-5/hpf = 1+ [facility] Comment on above: Order Comment: For i ndwelling catheters, specimen collection is acceptable on catheter day 1 and 2 only. ? Performed By: #### U [id number] #### [facility] (DEFAULT) [address] [place] [address] 28912 Urobilinogen Urine 0.2 E.U./dL Normal 0.2 E.U/d L, 1.0 E.U/dL [facility] Comment on above: Order Comment: For i ndwelling catheters, specimen collection is acceptable on catheter day 1 and 2 only. ? Performed By: #### U [id number] #### [facility] (DEFAULT) [address] [place] [address] 85385 WBC Urine 0 - 5 Normal 0 - 5 [facility] Comment on above: Order Comment: For i ndwelling catheters, specimen collection is acceptable on catheter day 1 and 2 only. ? Performed By: #### U [id number] #### [facility] (DEFAULT) [address] [place] [address] 35033 VANCOMYCIN LEVEL, TROUGH (NC E DRUG LEVEL)on 10-17-2024 Interpretation and review of laboratory results Abnormal [facility] Vancomycin trough [Mass/Vol] 21.5 ug/mL High [facility] Vancomycin, Trough 21.5 mcg/mL High Therapeut ic Range: 10.0-20.0 mcg/mL [facility] Comment on above: Order Comment: For i ndwelling catheters, specimen collection is acceptable on catheter day 1 and 2 only. ? Performed By: #### U [id number] #### [facility] (DEFAULT) [address] [place] [address] 63974 XR CHEST 1 VIEW PORTABLEon 0 10-17-2024 [...] have reviewed and approved this report. Normal [facility] XR CHEST 1 VIEW PORTABLE EXAM: XR CHEST 1 VIEW PORTABLE, 10/16/2024 23:00 PM COMPARISON: No prior studies available for comparison. CLINICAL INDICATIONS: resp insufficiency RELEVANT CLINICAL HISTORY: FINDINGS: (Adequate technique) Implanted Devices: None Thorax: Bilateral interstitial thickening. No pneumothorax. No pleural effusion. Cardiomegaly. Findings concerning for vascular congestion. IMPRESSION: See above Normal [facility] ABORH TYPE RECONFIRMATIONon 10-16-2024 [facility]/RH(D[facility] TYPE Negative Normal [facility] Comment on above: Performed By: #### T YPEC #### [facility] (DEFAULT) [address] [place] [address] Bedside Glucoseon 10-16-2024 FINGERSTICK GLU 189 mg/dL High 74-106 [facility] Comment on above: Result Comment: REYNA GEMENT OF PATIENT CARE PER NURSING PROTOCOL Performed By: #### L 501.080 ####[facility] [address] [place] [place], [address] FINGERSTICK GLU 208 mg/dL High 74-106 [facility] Comment on above: Result Comment: REYNA GEMENT OF PATIENT CARE PER NURSING PROTOCOL Performed By: #### L 501.080 ####[facility] [id number] [place], [address] FINGERSTICK GLU 206 mg/dL High 74-106 [facility] Comment on above: Result Comment: REYNA GEMENT OF PATIENT CARE PER NURSING PROTOCOL Performed By: #### L 501.080 ####[facility] [address] [place], [address] Brain/Head without Contrasto n 10-16-2024 Brain/Head without Contrast Normal [facility] CBC AND ELECTRONIC DIFFon Basophils (Bld) [#/Vol] 0.04 10*3/uL Normal 0.00-0.09 [facility] Comment on above: Performed By: #### X M #### [facility] (DEFAULT) [address] [address] Basophils/100 WBC (Bld) 0.3 % Normal [facility] Comment on above: Performed By: #### X M #### [facility] (DEFAULT) [address] [address] DIFF STATUS Electronic Differential Normal [facility] Comment on above: Performed By: #### X M #### [facility] (DEFAULT) [address] [address] Eosinophils (Bld) [#/Vol] 0.14 10*3/uL Normal 0.00-0.4 8 [facility] Comment on above: Performed By: #### X M #### [facility] (DEFAULT) [address] [address] Eosinophils/100 WBC (Bld) 1.0 % Normal [facility] Comment on above: Performed By: #### X M #### [facility] (DEFAULT) [address] [address] Hematocrit (Bld) [Volume fraction] 37.5 % Low 39.6-48.8 [facility] Comment on above: Performed By: #### X M #### [facility] (DEFAULT) [address] [address] Hemoglobin (Bld) [Mass/Vol] 12.6 g/dL Low 13.4-16.8 [facility] Comment on above: Performed By: #### X M #### [facility] (DEFAULT) [address] [address] Immature Grans % 0.4 % Normal [facility] Comment on above: Performed By: #### X M #### [facility] (DEFAULT) [address] [address] Immature Grans Absolute 0.06 K/uL Normal <=0.07 [facility] Comment on above: Performed By: #### X M #### [facility] (DEFAULT) [address] [place] [address] 56444 Lymphocytes (Bld) [#/Vol] 2.02 10*3/uL Normal 0.83-3.5 7 [facility] Comment on above: Performed By: #### X M #### [facility] (DEFAULT) [address] [place] [address] 99662 Lymphocytes/100 WBC (Bld) 15.1 % Normal [facility] Comment on above: Performed By: #### X M #### [facility] (DEFAULT) [address] [place] [address] 99413 MCV (RBC) [Entitic vol] 78.9 fL Low 79.0-94.5 [facility] Comment on above: Performed By: #### X M #### [facility] (DEFAULT) [address] [place] [address] 60646 Mean Cell Hgb 26.5 pg Normal 26.1-33.3 [facility] Comment on above: Performed By: #### X M #### [facility] (DEFAULT) [address] [place] [address] 04791 Mean Cell Hgb Conc 33.6 g/dL Normal 31.9-36.5 [facility] Comment on above: Performed By: #### X M #### [facility] (DEFAULT) [address] [place] [address] 60960 Monocytes (Bld) [#/Vol] 0.75 10*3/uL Normal 0.24-0.93 [facility] Comment on above: Performed By: #### X M #### [facility] (DEFAULT) [address] [place] [address] 31281 Monocytes/100 WBC (Bld) 5.6 % Normal [facility] Comment on above: Performed By: #### X M #### [facility] (DEFAULT) [address] [place] [address] 28080 Nucleated RBC 0.0 /100 WBC Normal <=0.2 [facility] Comment on above: Performed By: #### X M #### [facility] (DEFAULT) [address] [place] [address] 00812 Platelet mean volume (Bld) [Entitic vol] 9.2 fL Normal 8.7-12.3 [facility] Comment on above: Performed By: #### X M #### [facility] (DEFAULT) [address] [place] [address] 98046 Platelets (Bld) [#/Vol] 307 10*3/uL Normal 146-337 [facility] Comment on above: Performed By: #### X M #### [facility] (DEFAULT) [address] [place] [address] 41456 RBC (Bld) [#/Vol] 4.75 10*6/uL Normal 4.38-5.83 [facility] Comment on above: Performed By: #### X M #### [facility] (DEFAULT) [address] [place] [address] 55499 RBC Distribution 13.2 % Normal 10.9-14.[address] [facility] Comment on above: Performed By: #### X M #### [facility] (DEFAULT) [address] [place] [address] 74415 Segs + Bands Auto 77.6 % Normal [facility] Comment on above: Performed By: #### X M #### [facility] (DEFAULT) [address] [place] [address] 29588 Segs + Bands,Absolute Auto 10.38 K/uL High 1.57-6.19 [facility] Comment on above: Performed By: #### X M #### [facility] (DEFAULT) [address] [place] [address] 97168 WBC (Bld) [#/Vol] 13.39 10*3/uL High 3.73-10.10 [facility] Comment on above: Performed By: #### X M #### [facility] (DEFAULT) [address] [place] [address] 82749 CBC,PLATELETSon 10-16-2024 Erythrocyte distribution width (RBC) [Ratio] 13.2 % 10.9 - 14.3 % [facility] Hematocrit (Bld) [Volume fraction] 37 % Low 39.6 - 48.8 % [facility] Hemoglobin (Bld) [Mass/Vol] 12.6 g/dL Low 13.4 - 16.8 g/dL [facility] Interpretation and review of laboratory results Abnormal [facility] MCH (RBC) [Entitic mass] 27.1 pg 26. 1 - 33.3 pg [facility] MCHC (RBC) [Mass/Vol] 34.1 g/dL 31.9 - 36.5 g/dL [facility] MCV (RBC) [Entitic vol] 79.6 fL 79.0 - 94.5 fL [facility] Platelet mean volume (Bld) [Entitic vol] 9.2 fL 8.7 - 12.3 fL [facility] Platelets (Bld) [#/Vol] 272 10*3/uL 146 - 337 K/uL [facility] RBC (Bld) [#/Vol] 4.65 10*6/uL [facility] WBC (Bld) [#/Vol] 12.56 10*3/uL High 3.73 - 10 .10 K/uL [facility] Hematocrit (Bld) [Volume fraction] 37.0 % Low 39.6-48.8 [facility] Comment on above: Performed By: #### X M #### [facility] (DEFAULT) [address] [place] [address] Hemoglobin (Bld) [Mass/Vol] 12.6 g/dL Low 13.4-16.8 [facility] Comment on above: Performed By: #### X M #### [facility] (DEFAULT) [address] [place] [address] 38037 MCV (RBC) [Entitic vol] 79.6 fL Normal 79.0-94.5 [facility] Comment on above: Performed By: #### X M #### [facility] (DEFAULT) [address] [place] [address] 81800 Mean Cell Hgb 27.1 pg Normal 26.1-33.3 [facility] Comment on above: Performed By: #### X M #### [facility] (DEFAULT) [address] [place] [address] 71596 Mean Cell Hgb Conc 34.1 g/dL Normal 31.9-36.5 [facility] Comment on above: Performed By: #### X M #### [facility] (DEFAULT) [address] [place] [address] 34382 Platelet mean volume (Bld) [Entitic vol] 9.2 fL Normal 8.7-12.3 [facility] Comment on above: Performed By: #### X M #### [facility] (DEFAULT) [address] [place] [address] 34622 Platelets (Bld) [#/Vol] 272 10*3/uL Normal 146-337 [facility] Comment on above: Performed By: #### X M #### [facility] (DEFAULT) [address] [place] [address] 76997 RBC (Bld) [#/Vol] 4.65 10*6/uL Normal 4.38-5.83 [facility] Comment on above: Performed By: #### X M #### [facility] (DEFAULT) [address] [address] RBC Distribution 13.2 % Normal 10.9-14.[address] [facility] Comment on above: Performed By: #### X M #### [facility] (DEFAULT) [address] [place] [address] 14123 WBC (Bld) [#/Vol] 12.56 10*3/uL High 3.73-10.10 [facility] Comment on above: Performed By: #### X M #### [facility] (DEFAULT) [address] [place] [address] 79538 CHEM 7 (LYTES,BUN,CREA,GLUC) on 10-16-2024 Anion gap [Moles/Vol] 14 mmol/L 7 - 17 mmol/L [facility] Chloride [Moles/Vol] 97 mmol/L Low 98 - 10 8 mmol/L [facility] CO2 [Moles/Vol] 29 mmol/L 21 - 31 mmol/L [facility] Creatinine [Mass/Vol] 0.5 mg/dL Low 0.70 - 1.30 mg/dL [facility] eGFR, CKD-EPI, Male - PINF [facility] Glucose [Mass/Vol] 223 mg/dL High 70 - 179 mg/dL [facility] Interpretation and review of laboratory results Abnormal [facility] Osmolality Calc [Osmolality] 291 [facility] Potassium [Moles/Vol] 3.8 mmol/L 3.5 - 5.0 mmol/L [facility] Sodium [Moles/Vol] 136 mmol/L 135 - 145 mmol/L [facility] Urea nitrogen [Mass/Vol] 9 mg/dL 7 - 25 mg/d L [facility] Urea nitrogen/Creatinine [Mass ratio] 18 mg/mg [facility] Anion gap [Moles/Vol] 14 mmol/L Normal 7-17 [facility] Comment on above: Performed By: #### T YPEC #### [facility] (DEFAULT) [address] [place] [address] Chloride [Moles/Vol] 97 mmol/L Low 98-108 [facility] Comment on above: Performed By: #### T YPEC #### [facility] (DEFAULT) [address] [place] [address] CO2 [Moles/Vol] 29 mmol/L Normal 21-31 [facility] Comment on above: Performed By: #### T YPEC #### [facility] (DEFAULT) [address] [place] [address] 76196 Creatinine [Mass/Vol] 0.50 mg/dL Low 0.70-1.30 [facility] Comment on above: Performed By: #### T YPEC #### [facility] (DEFAULT) [address] [place] [address] 03381 eGFR, CKD-EPI, Male > Normal >=60 [facility] Comment on above: Result Comment: Repo rted eGFR is based on the CKD-EPI 2020 equation using creatinine, age, and sex. Performed By: #### T YPEC #### [facility] (DEFAULT) [address] [place] [address] 01558 Glucose [Mass/Vol] 223 mg/dL High Nonfastin -179 mg/dL; Fastin-99 [facility] Comment on above: Performed By: #### T YPEC #### [facility] (DEFAULT) [address] [place] [address] 81190 Osmolality [Osmolality] 291 mosm/kg Normal 278-305 [facility] Comment on above: Performed By: #### T YPEC #### [facility] (DEFAULT) [address] [place] [address] 11002 Potassium [Moles/Vol] 3.8 mmol/L Normal 3.5-5.0 [facility] Comment on above: Performed By: #### T YPEC #### [facility] (DEFAULT) [address] [place] [address] 36650 Sodium [Moles/Vol] 136 mmol/L Normal 135-145 [facility] Comment on above: Performed By: #### T YPEC #### [facility] (DEFAULT) [address] [place] [address] 17429 Urea nitrogen [Mass/Vol] 9 mg/dL Normal 7-25 [facility] Comment on above: Performed By: #### T YPEC #### [facility] (DEFAULT) [address] [place] [address] 79507 Urea nitrogen/Creatinine [Mass ratio] 18 mg/mg Normal [facility] Comment on above: Performed By: #### T YPEC #### [facility] (DEFAULT) [address] [place] [address] 12899 CHM 7 - EDon 10-16-2024 Anion gap [Moles/Vol] 12 mmol/L Normal 7-17 [facility] Comment on above: Performed By: #### U [id number] #### [facility] (DEFAULT) [address] [place] [address] 80834 Chloride [Moles/Vol] 99 mmol/L Normal 98-108 [facility] Comment on above: Performed By: #### U [id number] #### [facility] (DEFAULT) [address] [place] [address] 61692 CO2 [Moles/Vol] 29 mmol/L Normal 21-31 [facility] Comment on above: Performed By: #### U [id number] #### [facility] (DEFAULT) [address] [place] [address] 75014 Creatinine [Mass/Vol] 0.52 mg/dL Low 0.70-1.30 [facility] Comment on above: Performed By: #### U [id number] #### [facility] (DEFAULT) [address] [place] [address] 93835 eGFR, CKD-EPI, Male > Normal >=60 [facility] Comment on above: Result Comment: Repo rted eGFR is based on the CKD-EPI 2020 equation using creatinine, age, and sex. Performed By: #### U [id number] #### [facility] (DEFAULT) [address] [place] [address] 49044 Glucose [Mass/Vol] 224 mg/dL High Nonfastin -179 mg/dL; Fastin-99 [facility] Comment on above: Performed By: #### U [id number] #### [facility] (DEFAULT) [address] [place] [address] 09701 Osmolality [Osmolality] 292 mosm/kg Normal 278-305 [facility] Comment on above: Performed By: #### U [id number] #### [facility] (DEFAULT) [address] [place] [address] Potassium [Moles/Vol] 3.8 mmol/L Normal 3.5-5.0 [facility] Comment on above: Performed By: #### U [id number] #### [facility] (DEFAULT) [address] [place] [address] 94005 Sodium [Moles/Vol] 136 mmol/L Normal 135-145 [facility] Comment on above: Performed By: #### U [id number] #### [facility] (DEFAULT) [address] [place] [address] 27174 Urea nitrogen [Mass/Vol] 9 mg/dL Normal 7-25 [facility] Comment on above: Performed By: #### U [id number] #### [facility] (DEFAULT) [address] [place] [address] 72696 Urea nitrogen/Creatinine [Mass ratio] 17 mg/mg Normal [facility] Comment on above: Performed By: #### U [id number] #### [facility] (DEFAULT) [address] [place] [address] STROKE HEAD-STROKE ALERT ONLYon 10-16-2024 CT [...] duffy-white differentiation, predominantly localizing to the left STEAM [employer] territory. 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 2. Trace interventricular hemorrhage. 3. Localized mass effect without significant midline shift, herniation, hydrocephalus. Pulmonary results were discussed with Kristen Ramon MD at 8:57 PM on October 16, 2024. I personally viewed and interpreted these images and I have reviewed and approved this report. Normal [facility] Culture, Anaerobic Any Sourc devonte 10-16-2024 CUAN Normal [facility] Comment on above: Performed By: #### M 100.2000, M100.4001, M100.3000 ####[facility] [id number] [place], [address] Glucose measurement at [facility] deOrdered By: Haily Javier on 10-16-2024 Glucose [Mass/Vol] 189 mg/dL High 74-106 [facility] Comment on above: MANAGEMENT OF PATIEN T CARE PER NURSING PROTOCOL HEMOGLOBIN A1Con 10-16-2024 Average glucose Estimated from glycated hemoglobin (Bld) [Mass/Vol] 255 mg/dL [facility] HbA1c (Bld) [Mass fraction] 10.5 % High 4.7 - 5.6 % [facility] Interpretation and review of laboratory results Abnormal [facility] Glucose [Mass/Vol] 255 mg/dL Normal [facility] Comment on above: Performed By: #### X M #### [facility] (DEFAULT) [address] [address] Hemoglobin A1C HPLC 10.5 % High 4.7-5.6 [facility] Comment on above: Performed By: #### X M #### [facility] (DEFAULT) [address] [address] HEPATIC FUNCTION PANELon Albumin [Mass/Vol] 3.5 g/dL Normal 3.5-5.0 [facility] Comment on above: Performed By: #### G AS5 #### [facility] (DEFAULT) [address] [place] [address] 31035 ALP [Catalytic activity/Vol] 92 U/L Normal 32-126 [facility] Comment on above: Performed By: #### G AS5 #### [facility] (DEFAULT) [address] [place] [address] 59901 ALT [Catalytic activity/Vol] 13 U/L Normal 10-52 [facility] Comment on above: Performed By: #### G AS5 #### [facility] (DEFAULT) [address] [place] [address] 25419 AST [Catalytic activity/Vol] 14 U/L Normal 10-39 [facility] Comment on above: Performed By: #### G AS5 #### [facility] (DEFAULT) [address] [place] [address] 48649 Bilirubin [Mass/Vol] 0.6 mg/dL Normal <1.5 [facility] Comment on above: Performed By: #### G AS5 #### [facility] (DEFAULT) [address] [place] [address] 55693 Bilirubin.indirect [Mass/Vol] 0.2 mg/dL Normal <0.3 [facility] Comment on above: Performed By: #### G AS5 #### [facility] (DEFAULT) [address] [place] [address] 40912 Protein [Mass/Vol] 7.2 g/dL Normal 6.4-8.3 [facility] Comment on above: Performed By: #### G AS5 #### [facility] (DEFAULT) [address] [place] [address] 85546 HIGH SENSITIVITY TROPONIN I - SINGLE ORDERon 10-16-2024 Interpretation and review of laboratory results Normal [facility] Troponin I.cardiac High sensitivity method [Mass/Vol] 6 ng/L NINF - 53 ng/L [facility] hs-Troponin I 6 ng/L Normal <53 [facility] Comment on above: Order Comment: 2 Bot tles (1 Set - consists of 1 Aerobic bottle and 1 Anaerobic bottle) - 1st Peripheral Draw For vacutainer method draw: Fill aerobic bottle first, then anaerobic Results may be compromised due to HIGH VOLUME of the BACT\ALERT bottle EXCEEDING 10mLs, which can be associated with increased contamination. The optimal blood volume is 8-10mLs per aerobic/anaerobic blood culture bottle. Performed By: #### B LDCULT #### [facility] (DEFAULT) [address] [address] hs-Troponin I 6 ng/L Normal <53 [facility] Comment on above: Order Comment: Acute Coronary Syndrome (ACS): Initial Evaluation and Management:[email or web address] Performed By: #### G AS5 #### [facility] (DEFAULT) [address] [address] IONIZED CALCIUM, SERUMOrdere d By: Kike Hansen on 10-16-2024 Calcium.ionized (Bld) [Moles/Vol] 4.8 mg/dL 4.60 - 5.30 mg/dL [facility] Interpretation and review of laboratory results Normal [facility] IONIZED CALCIUM, SERUMon ICA 4.80 mg/dL Normal 4.60-5.30 [facility] Comment on above: Performed By: #### X M #### [facility] (DEFAULT) [address] [address] LIPID PANEL W CALCULATED LDL on 10-16-2024 Calculated LDL Cholesterol 105 mg/dL High 0-99 [facility] Comment on above: Result Comment: [<10 0 mg/dL: Optimal] [100-129 mg/dL: Near Optimal] [130-159 mg/dL: Borderline High] [160-189 mg/dL: High] [>189 mg/dL: Very High] Performed By: #### V ANCTR #### [facility] (DEFAULT) [address] [place] [address] 71860 Cholesterol [Mass/Vol] 165 mg/dL Normal <200 [facility] Comment on above: Result Comment: [<20 0 mg/dL: Desirable] [200-239 mg/dL: Borderline High] [>239 mg/dL: High] Performed By: #### V ANCTR #### [facility] (DEFAULT) [address] [place] [address] 38593 Cholesterol in HDL [Mass/Vol] 37 mg/dL Low >=40 [facility] Comment on above: Result Comment: [<40 mg/dL: Low (High Risk)] [>59 mg/dL: High (Low Risk)] Performed By: #### V ANCTR #### [facility] (DEFAULT) [address] [place] [address] 76800 Non HDL Cholesterol 128 mg/dL Normal <130 [facility] Comment on above: Performed By: #### V ANCTR #### [facility] (DEFAULT) [address] [place] [address] 59483 Total Cholesterol/HDL Ratio 4.5 High <4.5 [facility] Comment on above: Performed By: #### V ANCTR #### [facility] (DEFAULT) [address] [place] [address] 03126 Triglyceride [Mass/Vol] 113 mg/dL Normal <150 [facility] Comment on above: Result Comment: [<15 0 mg/dL: Desirable] [150-199 mg/dL: Borderline] [200-499 mg/dL: High] [>500 mg/dL: Very High] Performed By: #### V ANCTR #### [facility] (DEFAULT) [address] [place] [address] 49501 LIPID PANEL WITH REFLEX TO M ANIRUDH LDLon 10-16-2024 Calculated LDL Cholesterol 106 mg/dL High 0-99 [facility] Comment on above: Result Comment: [<10 0 mg/dL: Optimal] [100-129 mg/dL: Near Optimal] [130-159 mg/dL: Borderline High] [160-189 mg/dL: High] [>189 mg/dL: Very High] Performed By: #### G AS5 #### [facility] (DEFAULT) [address] [place] [address] 82586 Cholesterol [Mass/Vol] 168 mg/dL Normal <200 [facility] Comment on above: Result Comment: [<20 0 mg/dL: Desirable] [200-239 mg/dL: Borderline High] [>239 mg/dL: High] Performed By: #### Jose AS5 #### [facility] (DEFAULT) [address] [place] [address] 99814 Cholesterol in HDL [Mass/Vol] 38 mg/dL Low >=40 [facility] Comment on above: Result Comment: [<40 mg/dL: Low (High Risk)] [>59 mg/dL: High (Low Risk)] Performed By: #### Jose AS5 #### [facility] (DEFAULT) [address] [place] [address] 38052 Non HDL Cholesterol 130 mg/dL High <130 [facility] Comment on above: Performed By: #### Jose AS5 #### [facility] (DEFAULT) [address] [place] [address] 93924 Total Cholesterol/HDL Ratio 4.4 Normal <4.5 [facility] Comment on above: Performed By: #### G AS5 #### [facility] (DEFAULT) [address] [place] [address] 08889 Triglyceride [Mass/Vol] 119 mg/dL Normal <150 [facility] Comment on above: Result Comment: [<15 0 mg/dL: Desirable] [150-199 mg/dL: Borderline] [200-499 mg/dL: High] [>500 mg/dL: Very High] Performed By: #### Jose AS5 #### [facility] (DEFAULT) [address] [place] [address] 61366 MAGNESIUMon 10-16-2024 Magnesium [Mass/Vol] 1.6 mg/dL 1.6 - 2 .6 mg/dL [facility] Magnesium [Mass/Vol] 1.6 mg/dL Normal 1.6-2.6 [facility] Comment on above: Performed By: #### T YPEC #### [facility] (DEFAULT) [address] [place] [address] 02860 Magnesium [Mass/Vol] 1.7 mg/dL Normal 1.6-2.6 [facility] Comment on above: Performed By: #### G AS5 #### [facility] (DEFAULT) [address] [address] No Panel Informationon 10-16 Interpretation and review of laboratory results Normal [facility] PHOSPHATE, INORGANICon 10-16 Phosphate [Mass/Vol] 3 mg/dL 2.2 - 4 .6 mg/dL [facility] Phosphorous 3.0 mg/dL Normal 2.2-4.6 [facility] Comment on above: Performed By: #### T YPEC #### [facility] (DEFAULT) [address] [address] PROCALCITONINon 10-16-2024 Procalcitonin 0.05 ng/mL Normal <0.50 [facility] Comment on above: Result Comment: Proc alcitonin [...] and trend procalcitonin in various clinical settings. [email or web address] [email or web address] Two common cutoffs associated with bacterial infections are as follows. Respiratory tract infections: >0.25 ng/mL Sepsis/septic shock: >0.5 ng/mL Procalcitonin should not be used alone as a diagnostic tool, however. All procalcitonin results should be interpreted in association with the patients clinical condition and all laboratory findings. Performed By: #### V ANCTR #### [facility] (DEFAULT) [address] [place] [address] 6[address]00 PTINR-STROKEon 10-16-2024 INR Coag (PPP) [Relative time] 1.1 {INR} Normal 0.9-1.1 [facility] Comment on above: Performed By: #### C HM7 #### [facility] (DEFAULT) [address] [place] [address] 16451 PT Coag (PPP) [Time] 14.5 s High 11.9-14.2 [facility] Comment on above: Performed By: #### C HM7 #### [facility] (DEFAULT) [address] [place] [address] 75393 PTTon 10-16-2024 aPTT Coag (Bld) [Time] 33.6 s Normal 24.0-34.3 [facility] Comment on above: Performed By: #### C HM7 #### [facility] (DEFAULT) [address] [place] [address] 15566 Portable XR Chest Viewson Radiology Study observation (narrative) [facility] TYPE AND SCREENon 10-16-2024 ABO/RH(D) TYPE Negative Normal [facility] Comment on above: Performed By: #### X M #### [facility] (DEFAULT) [address] [address] Specimen Expiration 10/19/2024 23:59 Normal [facility] Comment on above: Performed By: #### X M #### [facility] (DEFAULT) [address] [place] [address] 92600 URINALYSIS REFLEX TO CULTURE PERFORMABLEon 10-16-2024 Appearance (U) Clear Clear [facility] Bacteria LM Ql (Urine sed) ABSENT ABSENT [facility] Color (U) Yellow Yellow [facility] Epithelial cells.squamous LM Ql (Urine sed) 0-2/hpf 0-2/hpf, 3-5/hpf = 1+ [facility] Glucose Test strip (U) [Mass/Vol] 250 mg/dL Abnormal Negative [facility] Interpretation and review of laboratory results Abnormal [facility] Ketones (U) [Mass/Vol] 40 mg/dL = Moderate Abnormal Nega tive [facility] Leukocyte esterase Test strip Ql (U) Negative Negative [facility] Nitrite Ql (U) Negative Negative [facility] pH (U) 5.5 [pH] 5.0 - 7.0 [facility] Protein (U) [Mass/Vol] 30 mg/dL Abnormal Negative [facility] RBC (U) [#/Vol] Negative Negative [facility] RBC LM.HPF (Urine sed) [#/Area] 3-5 Abnormal [facility] Specific gravity (U) [Rel density] 1.018 1.001 - 1.035 [facility] Urobilinogen (U) [Mass/Vol] 0.2 E.U./dL 0.2 E.U/dL, 1.0 E.U/dL [facility] WBC LM.HPF (Urine sed) [#/Area] 6 - 10 Abnormal [facility] Appearance (U) Clear Normal Clear [facility] Comment on above: Order Comment: For i ndwelling catheters, specimen collection is acceptable on catheter day 1 and 2 only. ? Performed By: #### X M #### [facility] (DEFAULT) [address] [place] [address] Bacteria ABSENT Normal ABSENT [facility] Comment on above: Order Comment: For i ndwelling catheters, specimen collection is acceptable on catheter day 1 and 2 only. ? Performed By: #### X M #### [facility] (DEFAULT) [address] [place] [address] Blood Urine Negative Normal Negative [facility] Comment on above: Order Comment: For i ndwelling catheters, specimen collection is acceptable on catheter day 1 and 2 only. ? Performed By: #### X M #### [facility] (DEFAULT) [address] [place] [address] Color (U) Yellow Normal Yellow [facility] Comment on above: Order Comment: For i ndwelling catheters, specimen collection is acceptable on catheter day 1 and 2 only. ? Performed By: #### X M #### [facility] (DEFAULT) [address] [place] [address] Glucose Ql (U) 250 mg/dL Abnormal Negative [facility] Comment on above: Order Comment: For i ndwelling catheters, specimen collection is acceptable on catheter day 1 and 2 only. ? Performed By: #### X M #### [facility] (DEFAULT) [address] [place] [address] Ketones Ql (U) 40 mg/dL = Moderate Abnormal Negative [facility] Comment on above: Order Comment: For i ndwelling catheters, specimen collection is acceptable on catheter day 1 and 2 only. ? Performed By: #### X M #### [facility] (DEFAULT) [address] [place] [address] Leukocyte esterase Test strip Ql (U) Negative Normal Negative [facility] Comment on above: Order Comment: For i ndwelling catheters, specimen collection is acceptable on catheter day 1 and 2 only. ? Performed By: #### X M #### [facility] (DEFAULT) [address] [place] [address] Nitrites Urine Negative Normal Negative [facility] Comment on above: Order Comment: For i ndwelling catheters, specimen collection is acceptable on catheter day 1 and 2 only. ? Performed By: #### X M #### [facility] (DEFAULT) [address] [place] [address] pH (U) 5.5 [pH] Normal 5.0-7.0 [facility] Comment on above: Order Comment: For i ndwelling catheters, specimen collection is acceptable on catheter day 1 and 2 only. ? Performed By: #### X M #### [facility] (DEFAULT) [address] [place] [address] Protein Urine 30 mg/dL Abnormal Negative [facility] Comment on above: Order Comment: For i ndwelling catheters, specimen collection is acceptable on catheter day 1 and 2 only. ? Performed By: #### X M #### [facility] (DEFAULT) [address] [address] RBC Urine 3-5 Abnormal 0-2 [facility] Comment on above: Order Comment: For i ndwelling catheters, specimen collection is acceptable on catheter day 1 and 2 only. ? Performed By: #### X M #### [facility] (DEFAULT) [address] [address] Specific [place] Urine 1.018 Normal 1.001-1.035 [facility] Comment on above: Order Comment: For i ndwelling catheters, specimen collection is acceptable on catheter day 1 and 2 only. ? Performed By: #### X M #### [facility] (DEFAULT) [address] [address] Squamous/Epithelial Cells, Urine 0-2/hpf Normal 0-2/hpf, 3-5/hpf = 1+ [facility] Comment on above: Order Comment: For i ndwelling catheters, specimen collection is acceptable on catheter day 1 and 2 only. ? Performed By: #### X M #### [facility] (DEFAULT) [address] [place] [address] Urobilinogen Urine 0.2 E.U./dL Normal 0.2 E.U/d L, 1.0 E.U/dL [facility] Comment on above: Order Comment: For i ndwelling catheters, specimen collection is acceptable on catheter day 1 and 2 only. ? Performed By: #### X M #### [facility] (DEFAULT) [address] [place] [address] WBC Urine 6 - 10 Abnormal 0 - 5 [facility] Comment on above: Order Comment: For i ndwelling catheters, specimen collection is acceptable on catheter day 1 and 2 only. ? Performed By: #### X M #### [facility] (DEFAULT) [address] [address] URINE DRUG SCREEN 10-16 Amphetamine/Methamphetami ne Not detected Normal Cutoff: 500 ng/mL [facility] Comment on above: Order Comment: For m edical purposes only. Positive results are unconfirmed unless otherwise noted. Performed By: #### C HM7 #### [facility] (DEFAULT) [address] [address] Barbiturates Not detected Normal Cutoff: 200 ng/mL [facility] Comment on above: Order Comment: For m edical purposes only. Positive results are unconfirmed unless otherwise noted. Performed By: #### C HM7 #### [facility] (DEFAULT) [address] [address] Benzodiazepines Positive Abnormal Cutoff: 200 ng/mL [facility] Comment on above: Order Comment: For m edical purposes only. Positive results are unconfirmed unless otherwise noted. Performed By: #### C HM7 #### [facility] (DEFAULT) [address] [address] Buprenorphine Not detected Normal Cutoff: 5 ng/mL [facility] Comment on above: Order Comment: For m edical purposes only. Positive results are unconfirmed unless otherwise noted. Performed By: #### C HM7 #### [facility] (DEFAULT) [address] [address] Cannabinoids Screen Ql (U) Not detected Normal Cutoff: 50 ng/mL [facility] Comment on above: Order Comment: For m edical purposes only. Positive results are unconfirmed unless otherwise noted. Performed By: #### C HM7 #### [facility] (DEFAULT) [address] [address] Cocaine Not detected Normal Cutoff: 150 ng/mL [facility] Comment on above: Order Comment: For m edical purposes only. Positive results are unconfirmed unless otherwise noted. Performed By: #### C HM7 #### [facility] (DEFAULT) [address] [address] Fentanyl Not detected Normal Cutoff: 1 ng/mL [facility] Comment on above: Order Comment: For m edical purposes only. Positive results are unconfirmed unless otherwise noted. Performed By: #### C HM7 #### [facility] (DEFAULT) [address] [address] Methadone Not detected Normal Cutoff: 300 ng/mL [facility] Comment on above: Order Comment: For m edical purposes only. Positive results are unconfirmed unless otherwise noted. Performed By: #### C HM7 #### [facility] (DEFAULT) [address] [address] Opiates Not detected Normal Cutoff: 300 ng/mL [facility] Comment on above: Order Comment: For m edical purposes only. Positive results are unconfirmed unless otherwise noted. Performed By: #### C HM7 #### [facility] (DEFAULT) [address] [address] Oxycodone Positive Abnormal Cutoff: 100 ng/mL [facility] Comment on above: Order Comment: For edical purposes only. Positive results are unconfirmed unless otherwise noted. Performed By: #### C HM7 #### [facility] (DEFAULT) [address] [address] Absolute lymphocyte countOrd ered By: Teja Avendano on 10-15-2024 Lymphocytes Auto (Unsp spec) [#/Vol] 1.38 10*3/uL 0.83-4.51 [facility] Absolute neutrophil countOrd ered By: Teja Avendano on 10-15-2024 Neutrophils (Bld) [#/Vol] 6.6 10*3/uL 2.0-7.7 [facility] Anaerobic cultureOrdered By: Ramon Garcia on 10-15-2024 Bacteria identified Anaer cx Nom (Unsp spec) No anaerobic bacteria isolated. [facility] Anion gap in Serum or Plasma Ordered By: Ozzy Cabrera on 10-15-2024 Anion gap [Moles/Vol] 8 mmol/L 5-15 [facility] Automated lymphocyte count a s percentage of total leukocytesOrdered By: Teja Avendano on 10-15-2024 Lymphocytes/100 WBC Auto (Unsp spec) 16.0 % Low 19-41 [facility] BUN/creatinine ratioOrdered By: Ozzy Cabrera on 10-15-2024 Urea nitrogen/Creatinine [Mass ratio] 19.4 mg/mg 10-20 [facility] Basic Metabolic Profile (BMP )on 10-15-2024 BUN/CRE 19.4 RATIO Normal 10-20 [facility] Comment on above: Performed By: #### L 500.2500 ####[facility] [address] [place], [address] Calcium [Mass/Vol] 8.9 mg/dL Normal 7.6-11.0 [facility] Comment on above: Performed By: #### L 500.2500 ####[facility] [address] [place], [address] Chloride [Moles/Vol] 101 mmol/L Normal 98-108 [facility] Comment on above: Performed By: #### L 500.2500 ####[facility] [address] [place], [address] CO2 [Moles/Vol] 26.1 mmol/L Normal 21.0-32.0 [facility] Comment on above: Performed By: #### L 500.2500 ####[facility] [address] [place], [address] Creatinine [Mass/Vol] 0.58 mg/dL Low 0.70-1.20 [facility] Comment on above: Performed By: #### L 500.2500 ####[facility] [address] [place], [address] ECRCL 126.34 ml/min Normal 50-250 [facility] Comment on above: Performed By: #### L 500.2500 ####[facility] [address] [place], [address] GAP 8 Normal 5-15 [facility] Comment on above: Performed By: #### L 500.2500 ####[facility] [address] [place], [address] GFR/1.73 sq M.predicted among non-blacks MDRD (S/P/Bld) [Vol rate/Area] 105 mL/min/{1.73_m2} Normal >60 [facility] Comment on above: Result Comment: mL/m in/1.73m2 CKD-EPI Creatinine Equation (2020) Performed By: #### L 500.2500 ####[facility] [address] [place], [address] Glucose [Mass/Vol] 260 mg/dL High 70-99 [facility] Comment on above: Performed By: #### L 500.2500 ####[facility] [address] [place], [address] Potassium [Moles/Vol] 4.5 mmol/L Normal 3.3-5.1 [facility] Comment on above: Performed By: #### L 500.2500 ####[facility] [address] [place], [address] Sodium [Moles/Vol] 136 mmol/L Normal 133-145 [facility] Comment on above: Performed By: #### L 500.2500 ####[facility] [address] [place], [address] Urea nitrogen [Mass/Vol] 11 mg/dL Normal 4-19 [facility] Comment on above: Performed By: #### L 500.2500 ####[facility] [address] [place], [address] Basophil percentageOrdered B y: Teja Avendano on 10-15-2024 Basophils/100 WBC (Bld) 0.6 % 0-1 [facility] Bedside Glucoseon 10-15-2024 FINGERSTICK GLU 181 mg/dL High 74-106 [facility] Comment on above: Result Comment: REYNA GEMENT OF PATIENT CARE PER NURSING PROTOCOL Performed By: #### L 501.080 ####[facility] [address] [place], [address] FINGERSTICK GLU 195 mg/dL High 74-106 [facility] Comment on above: Result Comment: REYNA GEMENT OF PATIENT CARE PER NURSING PROTOCOL Performed By: #### L 501.080 ####[facility] [address] [place], [address] FINGERSTICK GLU 201 mg/dL High [facility]106 [facility] Comment on above: Result Comment: REYNA GEMENT OF PATIENT CARE PER NURSING PROTOCOL Performed By: #### L 501.080 ####[facility] [address] [place], [address] FINGERSTICK GLU 202 mg/dL High [address] [place] [address] Comment on above: Result Comment: REYNA GEMENT OF PATIENT CARE PER NURSING PROTOCOL Performed By: #### L 501.080 ####[facility] [address] [place], [address] CBC W/Diff, Automatedon 09-19 Absolute Lymph 1.38 X10 3/uL Normal 0.83-4.51 [facility] Comment on above: Performed By: #### L 100.0100 ####[facility] [address] [place], [address] Absolute Neut 6.6 X10 3/uL Normal 2.0-7.7 [facility] Comment on above: Performed By: #### L 100.0100 ####[facility] [address] [place], [address] Basophils/100 WBC (Bld) 0.6 % Normal 0-1 [facility] Comment on above: Performed By: #### L 100.0100 ####[facility] [address] [place], [address] Eosinophils/100 WBC (Bld) 1.8 % Normal 0-5 [facility] Comment on above: Performed By: #### L 100.0100 ####[facility] [address] [place], [address] Erythrocyte distribution width (RBC) [Ratio] 13.0 % Normal 11.6-14.6 [facility] Comment on above: Performed By: #### L 100.0100 ####[facility] [address] [place], [address] Hematocrit (Bld) [Volume fraction] 33.9 % Low 40-54 [facility] Comment on above: Performed By: #### L 100.0100 ####[facility] [address] [place], [address] Hemoglobin (Bld) [Mass/Vol] 11.4 g/dL Low 13.0-16.5 [facility] Comment on above: Performed By: #### L 100.0100 ####[facility] [address] [place], [address] IG% 0.600 Normal 0.0-0.9 [facility] Comment on above: Result Comment: IG% - Immature Granulocytes (promyelocytes, myelocytes andmetamyelocytes) > 1% indicates that a LEFT SHIFT is Present. Performed By: #### L 100.0100 ####[facility] [address] [place], [address] Lymphocytes/100 WBC (Bld) 16.0 % Low 19-41 [facility] Comment on above: Performed By: #### L 100.0100 ####[facility] [address] [place], [address] MCH (RBC) [Entitic mass] 27.0 pg Normal 27.0-32.0 [facility] Comment on above: Performed By: #### L 100.0100 ####[facility] [address] [place], [address] MCHC (RBC) [Mass/Vol] 33.6 g/dL Normal 32-36 [facility] Comment on above: Performed By: #### L 100.0100 ####[facility] [address] [place], [address] MCV (RBC) [Entitic vol] 80.3 fL Normal 80-94 [facility] Comment on above: Performed By: #### L 100.0100 ####[facility] [address] [place], [address] Monocytes/100 WBC (Bld) 4.5 % Normal 0-10 [facility] Comment on above: Performed By: #### L 100.0100 ####[facility] [address] [place], [address] Neutrophils/100 WBC (Bld) 76.5 % High 47-70 [facility] Comment on above: Performed By: #### L 100.0100 ####[facility] [address] [place], [address] Nucleated RBC (Bld) [#/Vol] 0 10*3/uL Normal 0-5 [facility] Comment on above: Performed By: #### L 100.0100 ####[facility] [address] [place], [address] Platelet mean volume (Bld) [Entitic vol] 9.4 fL Normal 6.2-12.0 [facility] Comment on above: Performed By: #### L 100.0100 ####[facility] [address] [place], [address] Platelets (Bld) [#/Vol] 248 10*3/uL Normal 150-450 [facility] Comment on above: Performed By: #### L 100.0100 ####[facility] [address] [place], [address] RBC (Bld) [#/Vol] 4.22 10*6/uL Low 4.6-6.2 [facility] Comment on above: Performed By: #### L 100.0100 ####[facility] [address] [place], [address] RDW SD 36.9 fl Normal 35.1-43.9 [facility] Comment on above: Performed By: #### L 100.0100 ####[facility] [address] [place], [address] WBC (Bld) [#/Vol] 8.7 10*3/uL Normal 4.4-11.0 [facility] Comment on above: Performed By: #### L 100.0100 ####[facility] [address] [place], [address] Calcaneus min 2 Viewson 09-19 Calcaneus min 2 Views Normal [facility] Carbon dioxide, total [Moles /volume] in Central venous bloodOrdered By: Ozzy Cabrera on 10-15-2024 CO2 [Moles/Vol] 26.1 mmol/L 21.0-32.0 [facility] Chloride assayOrdered By: Olimpia Cabrera on 10-15-2024 Chloride [Moles/Vol] 101 mmol/L 98-108 [facility] Eosinophil percentageOrdered By: Teja Avendano on 10-15-2024 Eosinophils/100 WBC (Bld) 1.8 % 0-5 [facility] Erythrocyte distribution wid th ratioOrdered By: Teja Avendano on 10-15-2024 Erythrocyte distribution width (RBC) [Ratio] 13.0 % 11.6-14.6 [facility] Erythrocyte distribution wid th standard deviationOrdered By: Teja Avendano on 10-15-2024 Erythrocyte distribution width (RBC) [Ratio] 36.9 fl 35.1-43.9 [facility] Glomerular filtration rate ( GFR) estimation/1.73 sq m using serum, plasma, or whole bOrdered By: Ozzy Cabrera on 10-15-2024 GFR/1.73 sq M.predicted among non-blacks MDRD (S/P/Bld) [Vol rate/Area] 105 mL/min/{1.73_m2} >60 [facility] Comment on above: mL/min/1.73m2 CKD-EP I Creatinine Equation (2020) Gram Stainon 10-15-2024 GS NO COLLECTION INFO GIVEN UNK UNK CALCANEAL BONE COLLECTED IN OR Gram Stain 1+ White Blood Cells 1+ Red Blood Cells No organisms seen Normal [facility] Comment on above: Performed By: #### M 100.2000, M100.3000, M100.4001 ####[facility] [address] [place], [place], [address] Gram stainOrdered By: Ramon Garcia on 10-15-2024 Microscopic observation Gram stain Nom (Unsp spec) [facility] Hematocrit Auto (Bld) [Volum e fraction]Ordered By: Teja Avendano on 10-15-2024 Hematocrit (Bld) [Volume fraction] 33.9 % Low 40-54 [facility] Hemoglobin measurementOrdere d By: Teja Avendano on 10-15-2024 Hemoglobin (Bld) [Mass/Vol] 11.4 g/dL Low 13.0-16.5 [facility] Immature granulocytes/100 WB C Auto (Bld)Ordered By: Teja Avendano on 10-15-2024 Immature granulocytes/100 WBC (Bld) 0.600 % 0.0-0.9 [facility] Comment on above: IG% - Immature Granu locytes (promyelocytes, myelocytes and metamyelocytes) > 1% indicates that a LEFT SHIFT is Present. MCV (mean corpuscular volume ) determinationOrdered By: Teja Avendano on 10-15-2024 MCV (RBC) [Entitic vol] 80.3 fL 80-94 [facility] MR/POSTOP.ANEon 10-15-2024 MR/POSTOP.ANE Normal [facility] MR/[id number] 10-15-2024 MR/POSTOPAN2 Normal [facility] Mean corpuscular hemoglobin (MCH) determinationOrdered By: Teja Avendano on 10-15-2024 MCH (RBC) [Entitic mass] 27.0 pg 27.0-32.0 [facility] Mean corpuscular hemoglobin concentration (MCHC) determinationOrdered By: Teja Avendano on 10-15-2024 MCHC (RBC) [Mass/Vol] 33.6 g/dL 32-36 [facility] Mean platelet volume determi nationOrdered By: Teja Avendano on 10-15-2024 Platelet mean volume (Bld) [Entitic vol] 9.4 fL 6.2-12.0 [facility] Monocyte percentageOrdered B y: Teja Avendano on 10-15-2024 Monocytes/100 WBC (Bld) 4.5 % 0-10 [facility] Neutrophil percentageOrdered By: Teja Avendano on 10-15-2024 Neutrophils/100 WBC (Bld) 76.5 % High 47-70 [facility] Nucleated red blood cell per centageOrdered By: Teja Avendano on 10-15-2024 Nucleated RBC/100 WBC (Bld) [Ratio] 0 % 0-5 [facility] Operative Reporton Operative Report Normal [facility] Platelet countOrdered By: Ruben Avendano on 10-15-2024 Platelets (Bld) [#/Vol] 248 10*3/uL 150-450 [facility] Potassium measurement (mass/ volume)Ordered By: Ozzy Cabrera on 10-15-2024 Potassium (Unsp spec) [Mass/Vol] 4.5 mmol/L 3.3-5.1 [facility] RBC Auto (Bld) [#/Vol]Ordere d By: Teja Avendano on 10-15-2024 RBC (Bld) [#/Vol] 4.22 10*6/uL Low 4.6-6.2 [facility] Serum creatinine measurement (mass/volume)Ordered By: Ozzy Cabrera on 10-15-2024 Creatinine [Mass/Vol] 0.58 mg/dL Low 0.70-1.20 [facility] Serum glucose measurement (m ass/volume)Ordered By: Ozzy Cabrera on 10-15-2024 Glucose [Mass/Vol] 260 mg/dL High 70-99 [facility] Serum or plasma calcium everardo urement (mass/volume)Ordered By: Ozzy Cabrera on 10-15-2024 Calcium [Mass/Vol] 8.9 mg/dL 7.6-11.0 [facility] Serum or plasma urea nitroge n measurement (mass/volume)Ordered By: Ozzy Cabrera on 10-15-2024 Urea nitrogen [Mass/Vol] 11 mg/dL 4-19 [facility] Sodium levelOrdered By: Ozzy Cabrera on 10-15-2024 Sodium [Moles/Vol] 136 mmol/L 133-145 [facility] Trough vancomycin levelOrder ed By: Ozzy Cabrera on 10-15-2024 Vancomycin trough [Mass/Vol] 21.7 ug/mL High 5.0-15.0 [facility] Comment on above: Recommended goal tro ugh [...] therapy recommended for serious lifethreatening infections include:- Ypggmklnvi-Cpluzpimyycr-Twlahkfwe (Ventilator/[employer])-Sepsis PLEASE CONTACT PHARMACY SERVICES (#5182) FOR INTERPRETATIONOF RESULTS. Vancomycin, Trough Levelon 0 10-15-2024 VANCO, TROUGH 21.7 ug/mL High 5.0-15.0 [facility] Comment on above: Order Comment: Comme nts: DRAW 30 MIN PRIOR TO [id number] Result Comment: Milton mmended goal trough ranges [...] therapy recommended for serious lifethreatening infections include:- Pzyalxkdhd-Sarvsqzrgtbm-Gktakfbjd (Ventilator/Healt[employer] Associated)-SepsisPLEASE CONTACT PHARMACY SERVICES (#2909) FOR INTERPRETATIONOF RESULTS. Performed By: #### L 501.8820 ####[facility] [address], [address] White blood cell (WBC) count Ordered By: Teja Avendano on 10-15-2024 WBC (Bld) [#/Vol] 8.7 10*3/uL 4.4-11.0 [facility] Bedside Glucoseon 10-14-2024 FINGERSTICK GLU 260 mg/dL High [address] [place] [address] Comment on above: Result Comment: REYNA GEMENT OF PATIENT CARE PER NURSING PROTOCOL Performed By: #### L 501.080 ####[facility] [address], [address] FINGERSTICK GLU 250 mg/dL High [address] [place] [address] Comment on above: Result Comment: REYNA GEMENT OF PATIENT CARE PER NURSING PROTOCOL Performed By: #### L 501.080 ####[facility] [address], [address] FINGERSTICK GLU 279 mg/dL High [address] [place] [address] Comment on above: Result Comment: REYNA GEMENT OF PATIENT CARE PER NURSING PROTOCOL Performed By: #### L 501.080 ####[facility] [address], [address] FINGERSTICK GLU 178 mg/dL High [address] [place] [address] Comment on above: Result Comment: REYNA GEMENT OF PATIENT CARE PER NURSING PROTOCOL Performed By: #### L 501.080 ####[facility] [address] [place], [address] Wound Cultureon 10-14-2024 Normal [facility] Comment on above: Performed By: #### M 100.1999, M100.4001, M1.3000 ####[facility] [address] [place], [address] Bedside Glucoseon 10-13-2024 FINGERSTICK GLU 260 mg/dL High 74-106 [facility] Comment on above: Result Comment: REYNA GEMENT OF PATIENT CARE PER NURSING PROTOCOL Performed By: #### L 501.080 ####[facility] [address], [address] FINGERSTICK GLU 297 mg/dL High 74-106 [facility] Comment on above: Result Comment: REYNA GEMENT OF PATIENT CARE PER NURSING PROTOCOL Performed By: #### L 501.080 ####[facility] [address] [place], [address] FINGERSTICK GLU 242 mg/dL High -106 [facility] Comment on above: Result Comment: REYNA GEMENT OF PATIENT CARE PER NURSING PROTOCOL Performed By: #### L 501.080 ####[facility] [address], [address] FINGERSTICK GLU 253 mg/dL High -106 [facility] Comment on above: Result Comment: REYNA GEMENT OF PATIENT CARE PER NURSING PROTOCOL Performed By: #### L 501.080 ####[facility] [address] [place], [address] Culture, Anaerobic Any Sourc devonte 10-13-2024 CUAN #1 RIGHT HEEL WND (BONE) UNK UNK No anaerobic bacteria isolated. Normal [facility] Comment on above: Performed By: #### M 100.3000, M1.1999, M1.400 ####[facility] [address] [place], [address] CUAN SWAB SPECIMENS AEROBIC 4, ANAEROBIC 5- R HEEL WOUND UNK UNK No anaerobic bacteria isolated. Normal [facility] Comment on above: Performed By: #### M 100.4001, M100.3000, M100.1999 ####[facility] [address] [place], [address] CUAN Normal [facility] Comment on above: Performed By: #### M 100.3000, M100.2000, M100.4001 ####[facility] [address], [address] Serum Creatinine AND GFRon 0 10-13-2024 Creatinine [Mass/Vol] 0.64 mg/dL Low 0.70-1.20 [facility] Comment on above: Order Comment: Comme nts: PLEASE DO WITH THE VANC TROUGH Performed By: #### L 501.1105 ####[facility] [address] [place], [address] ECRCL 126.34 ml/min Normal 50-250 [facility] Comment on above: Order Comment: Comme nts: PLEASE DO WITH THE VANC TROUGH Performed By: #### L 501.1105 ####[facility] [address] [place], [address] GFR/1.73 sq M.predicted among non-blacks MDRD (S/P/Bld) [Vol rate/Area] 102 mL/min/{1.73_m2} Normal >60 [facility] Comment on above: Order Comment: Comme nts: PLEASE DO WITH THE VANC TROUGH Result Comment: mL/m in/1.73m2 CKD-EPI Creatinine Equation (2020) Performed By: #### L 501.1105 ####[facility] [address] [place], [address] Serum or plasma vancomycin m easurement (mass/volume)Ordered By: Shaan Hurst on 10-13-2024 Vancomycin [Mass/Vol] 17.6 ug/mL High 0.0-15.0 [facility] Comment on above: VANCOMYCIN STANDARD DRUG THERAPY: CRITICAL VALUE IS > 15.0 mg/L VANCOMYCIN HIGH INTENSITY THERAPY: CRITICAL VALUE IS > 20.0 mg/L PLEASE CONTACT PHARMACY SERVICES (#0597) FOR INTERPRETATIONOF RESULTS. THIS RESULT DOES NOT REPRESENT A PEAK OR TROUGHLEVEL FOR THIS DRUG. Vancomycin, Random Levelon 0 10-13-2024 VANCO, RANDOM 17.6 ug/mL High 0.0-15.0 [facility] Comment on above: Result Comment: VANC OMYCIN STANDARD DRUG THERAPY: CRITICAL VALUE IS > 15.0 mg/LVANCOMYCIN HIGH INTENSITY THERAPY: CRITICAL VALUE IS > 20.0 mg/LPLEASE CONTACT PHARMACY SERVICES (#1841) FOR INTERPRETATIONOF RESULTS. THIS RESULT DOES NOT REPRESENT A PEAK OR TROUGHLEVEL FOR THIS DRUG. Performed By: #### L 501.8850 ####[facility] [address] [place], [address] Vancomycin, Trough Levelon 0 10-13-2024 VANCO, TROUGH 23.8 ug/mL High 5.0-15.0 [facility] Comment on above: Order Comment: Comme nts: Trough to be drawn 30 mins prior to scheduled [id number] Result Comment: Milton mmended goal trough ranges [...] therapy recommended for serious lifethreatening infections include:- Uvazalueid-Rzotautzuulw-Dnpczglvd (Ventilator/Healtcare Associated)-SepsisPLEASE CONTACT PHARMACY SERVICES (#4498) FOR INTERPRETATIONOF RESULTS. Performed By: #### L 501.8820 ####[facility] [address] [place], [place], [id number] Bedside Glucoseon 10-12-2024 FINGERSTICK GLU 285 mg/dL High 74-106 [facility] Comment on above: Result Comment: REYNA LAIRD OF PATIENT CARE PER NURSING PROTOCOL Performed By: #### L 501.080 ####[facility] [address] [place], [address] FINGERSTICK GLU 275 mg/dL High 74-106 [facility] Comment on above: Result Comment: REYNA GEMENT OF PATIENT CARE PER NURSING PROTOCOL Performed By: #### L 501.080 ####[facility] [address] [place], [address] FINGERSTICK GLU 294 mg/dL High 74-106 [facility] Comment on above: Result Comment: REYNA GEMENT OF PATIENT CARE PER NURSING PROTOCOL Performed By: #### L 501.080 ####[facility] [address], [address] FINGERSTICK GLU 200 mg/dL High 74-106 [facility] Comment on above: Result Comment: REYNA GEMENT OF PATIENT CARE PER NURSING PROTOCOL Performed By: #### L 501.080 ####[facility] [address], [address] CXR for Line Placementon CXR for Line Placement Normal [facility] CXR for Line Placement Normal [facility] CXR for Line Placement Normal [facility] Consultation - Infectious Dx on 10-12-2024 Consultation - Infectious Dx Normal [facility] Culture, Blood (WB)on 2024 CUB Normal [facility] Comment on above: Performed By: #### L 501.6710, L503.6005, BTS, L100.0100, L101.9900, L500.4050, M200.1000, L300.3900 ####[facility] [address] [place], [address] Gram Stainon 10-12-2024 GS 2-RIGHT HEEL WOUND UNK UNK Gram Stain 2+ Gram positive rods 2+ Gram positive cocci 1+ White Blood Cells Normal [facility] Comment on above: Performed By: #### M 100.2000, M100.4001, M100.3000 ####[facility] [address] [place], [address] GS SWAB SPECIMENS AEROBIC 4, ANAEROBIC 5- R HEEL WOUND UNK UNK Gram Stain No organisms seen Normal [facility] Comment on above: Performed By: #### M 100.4001, M100.3000, ####[facility] [address] [place], [address] GS #1 RIGHT HEEL WND (BONE) UNK UNK Gram Stain 2+ White Blood Cells No organisms seen Normal [facility] Comment on above: Performed By: #### M 100.3000, M100.1999, M100.4001 ####[facility] [address] [place], [address] Wound Cultureon 10-12-2024 WC #1 RIGHT HEEL WND (BONE) UNK UNK No growth aerobically. Normal [facility] Comment on above: Performed By: #### M 100.3000, M1.1999, M100.4001 ####[facility] [address] [place], [address] WC Normal [facility] Comment on above: Performed By: #### M 100.3000, M100.1999, M100.4001 ####[facility] [address] [place], [address] Anaerobic cultureOrdered By: Ramon Garcia on 10-11-2024 Bacteria identified Anaer cx Nom (Unsp spec) Anaerobic cocci Abnormal [facility] Bacteria identified Anaer cx Nom (Unsp spec) Bacteroides thetaiotaomicron Abnormal [facility] Bacteria identified Anaer cx Nom (Unsp spec) Clostridium ramosum Abnormal [facility] Bacteria identified Anaer cx Nom (Unsp spec) No anaerobic bacteria isolated. [facility] Bacteria identified Anaer cx Nom (Unsp spec) No anaerobic bacteria isolated. [facility] Bedside Glucoseon 10-11-2024 FINGERSTICK GLU 261 mg/dL High 74-106 [facility] Comment on above: Result Comment: REYNA LAIRD OF PATIENT CARE PER NURSING PROTOCOL Performed By: #### L 501.080 ####[facility] [address], [address] FINGERSTICK GLU 272 mg/dL High 74-106 [facility] Comment on above: Result Comment: REYNA GEMENT OF PATIENT CARE PER NURSING PROTOCOL Performed By: #### L 501.080 ####[facility] [address], [address] FINGERSTICK GLU 221 mg/dL High 74-106 [facility] Comment on above: Result Comment: REYNA GEMENT OF PATIENT CARE PER NURSING PROTOCOL Performed By: #### L 501.080 ####[facility] [address], [address] FINGERSTICK GLU 230 mg/dL High 74-106 [facility] Comment on above: Result Comment: REYNA GEMENT OF PATIENT CARE PER NURSING PROTOCOL Performed By: #### L 501.080 ####[facility] [address], [address] FINGERSTICK GLU 291 mg/dL High [facility]106 [facility] Comment on above: Result Comment: REYNA GEMENT OF PATIENT CARE PER NURSING PROTOCOL Performed By: #### L 501.080 ####[facility] [address], [address] Culture, Blood (WB)on 2024 CUB Normal [facility] Comment on above: Performed By: #### M 200.1000 ####[facility] [address] [place], [address] Gram stainOrdered By: Ramon Garcia on 10-11-2024 Microscopic observation Gram stain Nom (Unsp spec) [facility] Microscopic observation Gram stain Nom (Unsp spec) [facility] Microscopic observation Gram stain Nom (Unsp spec) [facility] MR/POSTOP.ANEon 10-11-2024 MR/POSTOP.ANE Normal [facility] MR/EUEVMPGE3nl 10-11-2024 MR/POSTOPAN2 Normal [facility] Operative Reporton Operative Report Normal [facility] Routine wound cultureOrdered By: Ramon Garcia on 10-11-2024 Microbial culture, routine Streptococcus mitis/ oralis Abnormal [facility] Microbial culture, routine Morganella morganii sp sibonii Abnormal [facility] Microbial culture, routine Corynebacterium urealyticum Abnormal [facility] Surgery Specimen Level IIIon 10-11-2024 Surgery Specimen Level III Normal [facility] Comment on above: Performed By: #### P SUIII ####[facility] [address] [place], [place], [address] TSH DL <= 0.005 mIU/L QnOrde red By: Francisco Abarca on 10-11-2024 TSH Qn 0.848 uIU/mL 0.300-4.200 [facility] Thyroid Stim Hormone (TSH)on 10-11-2024 TSH 0.848 uIU/mL Normal 0.300-4.200 [facility] Comment on above: Performed By: #### L 501.9520 ####[facility] [address] [place], [place], [address] Vancomycin, Trough Levelon 0 10-11-2024 VANCO, TROUGH 14.2 ug/mL Normal 5.0-15.0 [facility] Comment on above: Order Comment: 0300 Result [...] therapy recommended for serious lifethreatening infections include:- Ronwoggcxh-Pjevpvllqwlg-Tjvphbwck (Ventilator/Healtcare Associated)-SepsisPLEASE CONTACT PHARMACY SERVICES (#1212) FOR INTERPRETATIONOF RESULTS. Performed By: #### L 501.8820 ####[facility] [address] [place], [address] Basic Metabolic Profile (BMP )on 10-10-2024 BUN/CRE 12.0 RATIO Normal 10-20 [facility] Comment on above: Performed By: #### L 500.2500, L100.0100, L501.9985 ####[facility] [address] [place], [address] Calcium [Mass/Vol] 8.5 mg/dL Normal 7.6-11.0 [facility] Comment on above: Performed By: #### L 500.2500, L100.0100, L501.9985 ####[facility] [address] [place], [address] Chloride [Moles/Vol] 98 mmol/L Normal 98-108 [facility] Comment on above: Performed By: #### L 500.2500, L100.0100, L501.9985 ####[facility] [address] [place], [address] CO2 [Moles/Vol] 27.0 mmol/L Normal 21.0-32.0 [facility] Comment on above: Performed By: #### L 500.2500, L100.0100, L501.9985 ####[facility] [address] [place], [address] Creatinine [Mass/Vol] 0.65 mg/dL Low 0.70-1.20 [facility] Comment on above: Performed By: #### L 500.2500, L100.0100, L501.9985 ####[facility] [address] [place], [address] ECRCL 126.34 ml/min Normal 50-250 [facility] Comment on above: Performed By: #### L 500.2500, L100.0100, L501.9985 ####[facility] [address] [place], [address] GAP 11 Normal 5-15 [facility] Comment on above: Performed By: #### L 500.2500, L100.0100, L501.9985 ####[facility] [address], [address] GFR/1.73 sq M.predicted among non-blacks MDRD (S/P/Bld) [Vol rate/Area] 101 mL/min/{1.73_m2} Normal >60 [facility] Comment on above: Result Comment: mL/m in/1.73m2 CKD-EPI Creatinine Equation (2020) Performed By: #### L 500.2500, L100.0100, L501.9985 ####[facility] [address] [place], [address] Glucose [Mass/Vol] 254 mg/dL High 70-99 [facility] Comment on above: Performed By: #### L 500.2500, L100.0100, L501.9985 ####[facility] [address] [place], [address] Potassium [Moles/Vol] 4.2 mmol/L Normal 3.3-5.1 [facility] Comment on above: Performed By: #### L 500.2500, L100.0100, L501.9985 ####[facility] [address] [place], [address] Sodium [Moles/Vol] 136 mmol/L Normal 133-145 [facility] Comment on above: Performed By: #### L 500.2500, L100.0100, L501.9985 ####[facility] [address] [place], [address] Urea nitrogen [Mass/Vol] 8 mg/dL Normal 4-19 [facility] Comment on above: Performed By: #### L 500.2500, L100.0100, L501.9985 ####[facility] [address], [address] Bedside Glucoseon 10-10-2024 FINGERSTICK GLU 298 mg/dL High 74-106 [facility] Comment on above: Result Comment: REYNA GEMENT OF PATIENT CARE PER NURSING PROTOCOL Performed By: #### L 501.080 ####[facility] [address], [address] FINGERSTICK GLU 287 mg/dL High 74-106 [facility] Comment on above: Result Comment: REYNA GEMENT OF PATIENT CARE PER NURSING PROTOCOL Performed By: #### L 501.080 ####[facility] [address], [address] FINGERSTICK GLU 304 mg/dL High -106 [facility] Comment on above: Result Comment: REYNA GEMENT OF PATIENT CARE PER NURSING PROTOCOL Performed By: #### L 501.080 ####[facility] [address], [address] FINGERSTICK GLU 268 mg/dL High -106 [facility] Comment on above: Result Comment: REYNA GEMENT OF PATIENT CARE PER NURSING PROTOCOL Performed By: #### L 501.080 ####[facility] [address], [address] CBC W/Diff, Automatedon 09-19 Absolute Lymph 1.60 X10 3/uL Normal 0.83-4.51 [facility] Comment on above: Performed By: #### L 500.2500, L100.0100, L501.9985 ####[facility] [address], [address] Absolute Neut 5.1 X10 3/uL Normal 2.0-7.7 [facility] Comment on above: Performed By: #### L 500.2500, L100.0100, L501.9985 ####[facility] [address] [place], [address] Basophils/100 WBC (Bld) 0.5 % Normal 0-1 [facility] Comment on above: Performed By: #### L 500.2500, L100.0100, L501.9985 ####[facility] [address] [place], [address] Eosinophils/100 WBC (Bld) 2.3 % Normal 0-5 [facility] Comment on above: Performed By: #### L 500.2500, L100.0100, L501.9985 ####[facility] [address] [place], [address] Erythrocyte distribution width (RBC) [Ratio] 12.9 % Normal 11.6-14.6 [facility] Comment on above: Performed By: #### L 500.2500, L100.0100, L501.9985 ####[facility] [address] [place], [address] Hematocrit (Bld) [Volume fraction] 36.7 % Low 40-54 [facility] Comment on above: Performed By: #### L 500.2500, L100.0100, L501.9985 ####[facility] [address], [address] Hemoglobin (Bld) [Mass/Vol] 12.2 g/dL Low 13.0-16.5 [facility] Comment on above: Performed By: #### L 500.2500, L100.0100, L501.9985 ####[facility] [address], [address] IG% 0.400 Normal 0.0-0.9 [facility] Comment on above: Result Comment: IG% - Immature Granulocytes (promyelocytes, myelocytes andmetamyelocytes) > 1% indicates that a LEFT SHIFT is Present. Performed By: #### L 500.2500, L100.0100, L501.9985 ####[facility] [address], [address] Lymphocytes/100 WBC (Bld) 21.2 % Normal 19-41 [facility] Comment on above: Performed By: #### L 500.2500, L100.0100, L501.9985 ####[facility] [address], [address] MCH (RBC) [Entitic mass] 27.4 pg Normal 27.0-32.0 [facility] Comment on above: Performed By: #### L 500.2500, L100.0100, L501.9985 ####[facility] [address], [address] MCHC (RBC) [Mass/Vol] 33.2 g/dL Normal 32-36 [facility] Comment on above: Performed By: #### L 500.2500, L100.0100, L501.9985 ####[facility] [address], [address] MCV (RBC) [Entitic vol] 82.5 fL Normal 80-94 [facility] Comment on above: Performed By: #### L 500.2500, L100.0100, L501.9985 ####[facility] [address] [place], [address] Monocytes/100 WBC (Bld) 8.2 % Normal 0-10 [facility] Comment on above: Performed By: #### L 500.2500, L100.0100, L501.9985 ####[facility] [address] [place], [address] Neutrophils/100 WBC (Bld) 67.4 % Normal 47-70 [facility] Comment on above: Performed By: #### L 500.2500, L100.0100, L501.9985 ####[facility] [address] [place], [address] Nucleated RBC (Bld) [#/Vol] 0 10*3/uL Normal 0-5 [facility] Comment on above: Performed By: #### L 500.2500, L100.0100, L501.9985 ####[facility] [address], [address] Platelet mean volume (Bld) [Entitic vol] 9.7 fL Normal 6.2-12.0 [facility] Comment on above: Performed By: #### L 500.2500, L100.0100, L501.9985 ####[facility] [address] [place], [address] Platelets (Bld) [#/Vol] 231 10*3/uL Normal 150-450 [facility] Comment on above: Performed By: #### L 500.2500, L100.0100, L501.9985 ####[facility] [address], [address] RBC (Bld) [#/Vol] 4.45 10*6/uL Low 4.6-6.2 [facility] Comment on above: Performed By: #### L 500.2500, L100.0100, L501.9985 ####[facility] [address], [address] RDW SD 38.8 fl Normal 35.1-43.9 [facility] Comment on above: Performed By: #### L 500.2500, L100.0100, L501.9985 ####[facility] [address], [address] WBC (Bld) [#/Vol] 7.5 10*3/uL Normal 4.4-11.0 [facility] Comment on above: Performed By: #### L 500.2500, L100.0100, L501.9985 ####[facility] [address], [address] Gram Stainon 10-10-2024 GS List Antibiotics Last 48 Hours? merrem List Antibiotics to be Started? vancomycin right heel Gram Stain 3+ Gram positive cocci 3+ Gram negative rods Rare Gram positive rods No cells seen Normal [facility] Comment on above: Performed By: #### M 100.3000, M100.2000, M100.4001 ####[facility] [address], [address] Hemoglobin A1con 10-10-2024 HbA1c (Bld) [Mass fraction] 10.9 % High <=5.6 [facility] Comment on above: Result Comment: Norm al < 5.7 % Prediabetic 5.7 - 6.4 % Diabetic >or= 6.5 % Please note range changes. Performed By: #### L 500.2500, L100.0100, L501.9985 ####[facility] [address] [place], [place], [id number] Hemoglobin A1c percentageOrd ered By: Chula Antunez on 10-10-2024 HbA1c (Bld) [Mass fraction] 10.9 % High <5.7 [facility] Comment on above: Normal < 5.7 % Predi abetic 5.7 - 6.4 % Diabetic >or= 6.5 % Please note range changes. Lower Ext Joint Only (Routin e)on 10-10-2024 Lower Ext Joint Only (Routine) Normal [facility] Absolute neutrophil countOrd ered By: Logan Gifford on 2024 Neutrophils (Bld) [#/Vol] 9.4 10*3/uL High 2.0-7.7 [facility] Activated partial thrombopla stin time (aPTT) in platelet poor plasma by coagulation aOrdered By: Logan Gifford on 2024 aPTT Coag (PPP) [Time] 32.3 s 24.1-36.2 [facility] Anaerobic cultureOrdered By: Logan Gifford on 2024 Bacteria identified Anaer cx Nom (Unsp spec) Bacteroides thetaiotaomicron Abnormal [facility] Bacteria identified Anaer cx Nom (Unsp spec) Clostridium ramosum Abnormal [facility] Anion gap in Serum or Plasma Ordered By: Logan Gifford on 2024 Anion gap [Moles/Vol] 14 mmol/L 5-15 [facility] BUN/creatinine ratioOrdered By: Logan Le on 2024 Urea nitrogen/Creatinine [Mass ratio] 9.6 mg/mg Low 10-20 [facility] Basophil percentageOrdered B y: Logan Gifford on 2024 Basophils/100 WBC (Bld) 0.4 % 0-1 [facility] Bedside Glucoseon 2024 FINGERSTICK GLU 306 mg/dL High 74-106 [facility] Comment on above: Result Comment: REYNA GEMENT OF PATIENT CARE PER NURSING PROTOCOL Performed By: #### L 501.080 ####[facility] [address], [address] FINGERSTICK GLU 320 mg/dL High 74-106 [facility] Comment on above: Result Comment: REYNA GEMENT OF PATIENT CARE PER NURSING PROTOCOL Performed By: #### L 501.080 ####[facility] [address], [address] Bilirubin, totalOrdered By: Logan Le on 2024 Bilirubin [Mass/Vol] 0.88 mg/dL 0.00-1.30 [facility] Blood cultureOrdered By: Aurelio cezar Ирина on 2024 Bacteria identified Cx Nom (Bld) Negative Abnormal [facility] Bacteria identified Cx Nom (Bld) Staphylococcus epidermidis Abnormal [facility] CBC W/Diff, Automatedon 09-19 Absolute Lymph 1.04 X10 3/uL Normal 0.83-4.51 [facility] Comment on above: Performed By: #### L 501.6710, L503.6005, BTS, L100.0100, L101.9900, L500.4050, M200.1000, L300.3900 ####[facility] [address], [address] Absolute Neut 9.4 X10 3/uL High 2.0-7.7 [facility] Comment on above: Performed By: #### L 501.6710, L503.6005, BTS, L100.0100, L101.9900, L500.4050, M200.1000, L300.3900 ####[facility] [address], [address] Basophils/100 WBC (Bld) 0.4 % Normal 0-1 [facility] Comment on above: Performed By: #### L 501.6710, L503.6005, BTS, L100.0100, L101.9900, L500.4050, M200.1000, L300.3900 ####[facility] [address], [address] Eosinophils/100 WBC (Bld) 0.7 % Normal 0-5 [facility] Comment on above: Performed By: #### L 501.6710, L503.6005, BTS, L100.0100, L101.9900, L500.4050, M200.1000, L300.3900 ####[facility] [address], [address] Erythrocyte distribution width (RBC) [Ratio] 12.8 % Normal 11.6-14.6 [facility] Comment on above: Performed By: #### L 501.6710, L503.6005, BTS, L100.0100, L101.9900, L500.4050, M200.1000, L300.3900 ####[facility] [address], [address] Hematocrit (Bld) [Volume fraction] 38.6 % Low 40-54 [facility] Comment on above: Performed By: #### L 501.6710, L503.6005, BTS, L100.0100, L101.9900, L500.4050, M200.1000, L300.3900 ####[facility] [address], [address] Hemoglobin (Bld) [Mass/Vol] 12.8 g/dL Low 13.0-16.5 [facility] Comment on above: Performed By: #### L 501.6710, L503.6005, BTS, L100.0100, L101.9900, L500.4050, M200.1000, L300.3900 ####[facility] [address], [address] IG% 0.400 Normal 0.0-0.9 [facility] Comment on above: Result Comment: IG% - Immature Granulocytes (promyelocytes, myelocytes andmetamyelocytes) > 1% indicates that a LEFT SHIFT is Present. Performed By: #### L 501.6710, L503.6005, BTS, L100.0100, L101.9900, L500.4050, M200.1000, L300.3900 ####[facility] [address], [address] Lymphocytes/100 WBC (Bld) 9.2 % Low 19-41 [facility] Comment on above: Performed By: #### L 501.6710, L503.6005, BTS, L100.0100, L101.9900, L500.4050, M200.1000, L300.3900 ####[facility] [address], [address] MCH (RBC) [Entitic mass] 26.8 pg Low 27.0-32.0 [facility] Comment on above: Performed By: #### L 501.6710, L503.6005, BTS, L100.0100, L101.9900, L500.4050, M200.1000, L300.3900 ####[facility] [address], [address] MCHC (RBC) [Mass/Vol] 33.2 g/dL Normal 32-36 [facility] Comment on above: Performed By: #### L 501.6710, L503.6005, BTS, L100.0100, L101.9900, L500.4050, M200.1000, L300.3900 ####[facility] [address], [address] MCV (RBC) [Entitic vol] 80.8 fL Normal 80-94 [facility] Comment on above: Performed By: #### L 501.6710, L503.6005, BTS, L100.0100, L101.9900, L500.4050, M200.1000, L300.3900 ####[facility] [address], [address] Monocytes/100 WBC (Bld) 6.5 % Normal 0-10 [facility] Comment on above: Performed By: #### L 501.6710, L503.6005, BTS, L100.0100, L101.9900, L500.4050, M200.1000, L300.3900 ####[facility] [address], [address] Neutrophils/100 WBC (Bld) 82.8 % High 47-70 [facility] Comment on above: Performed By: #### L 501.6710, L503.6005, BTS, L100.0100, L101.9900, L500.4050, M200.1000, L300.3900 ####[facility] [address], [address] Nucleated RBC (Bld) [#/Vol] 0 10*3/uL Normal 0-5 [facility] Comment on above: Performed By: #### L 501.6710, L503.6005, BTS, L100.0100, L101.9900, L500.4050, M200.1000, L300.3900 ####[facility] [address], [address] Platelet mean volume (Bld) [Entitic vol] 9.8 fL Normal 6.2-12.0 [facility] Comment on above: Performed By: #### L 501.6710, L503.6005, BTS, L100.0100, L101.9900, L500.4050, M200.1000, L300.3900 ####[facility] [address], [address] Platelets (Bld) [#/Vol] 243 10*3/uL Normal 150-450 [facility] Comment on above: Performed By: #### L 501.6710, L503.6005, BTS, L100.0100, L101.9900, L500.4050, M200.1000, L300.3900 ####[facility] [address], [address] RBC (Bld) [#/Vol] 4.78 10*6/uL Normal 4.6-6.2 [facility] Comment on above: Performed By: #### L 501.6710, L503.6005, BTS, L100.0100, L101.9900, L500.4050, M200.1000, L300.3900 ####[facility] [address], [address] RDW SD 37.2 fl Normal 35.1-43.9 [facility] Comment on above: Performed By: #### L 501.6710, L503.6005, BTS, L100.0100, L101.9900, L500.4050, M200.1000, L300.3900 ####[facility] [address], [address] WBC (Bld) [#/Vol] 11.3 10*3/uL High 4.4-11.0 [facility] Comment on above: Performed By: #### L 501.6710, L503.6005, BTS, L100.0100, L101.9900, L500.4050, M200.1000, L300.3900 ####[facility] [address] [place], [address] CRPon 2024 C-REACTIVE PROT 141.00 mg/L High 0.0-3.0 [facility] Comment on above: Performed By: #### L 501.6710, L503.6005, BTS, L100.0100, L101.9900, L500.4050, M200.1000, L300.3900 ####[facility] [address] [place], [place], [phone]) CRP [Mass/Vol]Ordered By: Master Gifford on 2024 C-Reactive Protein Extended Range 141.00 mg/L High 0.0-3.0 [facility] Carbon dioxide, total [Moles /volume] in Central venous bloodOrdered By: Logan Gifford on 2024 CO2 [Moles/Vol] 27.8 mmol/L 21.0-32.0 [facility] Chest 1 View (Portable)on Chest 1 View (Portable) Normal [facility] Chloride assayOrdered By: Master Gifford on 2024 Chloride [Moles/Vol] 93 mmol/L Low 98-108 [facility] Comprehensive Metabolic Prof ilon 2024 Albumin [Mass/Vol] 3.5 g/dL Normal 3.4-4.8 [facility] Comment on above: Performed By: #### L 501.6710, L503.6005, BTS, L100.0100, L101.9900, L500.4050, M200.1000, L300.3900 ####[facility] [address] [place], [place], [id number] Albumin/Globulin [Mass ratio] 0.9 {ratio} Normal 0.9-2.4 [facility] Comment on above: Performed By: #### L 501.6710, L503.6005, BTS, L100.0100, L101.9900, L500.4050, M200.1000, L300.3900 ####[facility] [address] [place], [address] ALK PHOS 104 U/L Normal 40-129 [facility] Comment on above: Performed By: #### L 501.6710, L503.6005, BTS, L100.0100, L101.9900, L500.4050, M200.1000, L300.3900 ####[facility] [address], [address] ALT [Catalytic activity/Vol] 11 U/L Normal <=46 [facility] Comment on above: Performed By: #### L 501.6710, L503.6005, BTS, L100.0100, L101.9900, L500.4050, M200.1000, L300.3900 ####[facility] [address], [address] AST [Catalytic activity/Vol] 18 U/L Normal <=37 [facility] Comment on above: Performed By: #### L 501.6710, L503.6005, BTS, L100.0100, L101.9900, L500.4050, M200.1000, L300.3900 ####[facility] [address], [address] Bilirubin [Mass/Vol] 0.88 mg/dL Normal 0.00-1.30 [facility] Comment on above: Performed By: #### L 501.6710, L503.6005, BTS, L100.0100, L101.9900, L500.4050, M200.1000, L300.3900 ####[facility] [address] [place], [address] BUN/CRE 9.6 RATIO Low 10-20 [facility] Comment on above: Performed By: #### L 501.6710, L503.6005, BTS, L100.0100, L101.9900, L500.4050, M200.1000, L300.3900 ####[facility] [address], [address] Calcium [Mass/Vol] 9.0 mg/dL Normal 7.6-11.0 [facility] Comment on above: Performed By: #### L 501.6710, L503.6005, BTS, L100.0100, L101.9900, L500.4050, M200.1000, L300.3900 ####[facility] [address], [address] Chloride [Moles/Vol] 93 mmol/L Low 98-108 [facility] Comment on above: Performed By: #### L 501.6710, L503.6005, BTS, L100.0100, L101.9900, L500.4050, M200.1000, L300.3900 ####[facility] [address], [address] CO2 [Moles/Vol] 27.8 mmol/L Normal 21.0-32.0 [facility] Comment on above: Performed By: #### L 501.6710, L503.6005, BTS, L100.0100, L101.9900, L500.4050, M200.1000, L300.3900 ####[facility] [address], [address] Creatinine [Mass/Vol] 0.81 mg/dL Normal 0.70-1.20 [facility] Comment on above: Performed By: #### L 501.6710, L503.6005, BTS, L100.0100, L101.9900, L500.4050, M200.1000, L300.3900 ####[facility] [address] [place], [address] GAP 14 Normal 5-15 [facility] Comment on above: Performed By: #### L 501.6710, L503.6005, BTS, L100.0100, L101.9900, L500.4050, M200.1000, L300.3900 ####[facility] [address], [address] GFR/1.73 sq M.predicted among non-blacks MDRD (S/P/Bld) [Vol rate/Area] 95 mL/min/{1.73_m2} Normal >60 [facility] Comment on above: Result Comment: mL/m in/1.73m2 CKD-EPI Creatinine Equation (2020) Performed By: #### L 501.6710, L503.6005, BTS, L100.0100, L101.9900, L500.4050, M200.1000, L300.3900 ####[facility] [address], [address] Globulin (S) [Mass/Vol] 3.8 g/dL Normal 2.2-4.2 [facility] Comment on above: Performed By: #### L 501.6710, L503.6005, BTS, L100.0100, L101.9900, L500.4050, M200.1000, L300.3900 ####[facility] [address], [address] Glucose [Mass/Vol] 384 mg/dL High 70-99 [facility] Comment on above: Performed By: #### L 501.6710, L503.6005, BTS, L100.0100, L101.9900, L500.4050, M200.1000, L300.3900 ####[facility] [address], [address] Potassium [Moles/Vol] 3.9 mmol/L Normal 3.3-5.1 [facility] Comment on above: Performed By: #### L 501.6710, L503.6005, BTS, L100.0100, L101.9900, L500.4050, M200.1000, L300.3900 ####[facility] [address] [place], [place], [phone]) Sodium [Moles/Vol] 134 mmol/L Normal 133-145 [facility] Comment on above: Performed By: #### L 501.6710, L503.6005, BTS, L100.0100, L101.9900, L500.4050, M200.1000, L300.3900 ####[facility] [address] [place], [place], [phone]) T PROT 7.3 g/dL Normal 5.9-8.4 [facility] Comment on above: Performed By: #### L 501.6710, L503.6005, BTS, L100.0100, L101.9900, L500.4050, M200.1000, L300.3900 ####[facility] [address] [place], [place], [id number] Urea nitrogen [Mass/Vol] 8 mg/dL Normal 4-19 [facility] Comment on above: Performed By: #### L 501.6710, L503.6005, BTS, L100.0100, L101.9900, L500.4050, M200.1000, L300.3900 ####[facility] [address] [place], [place], [id number] Emergency Department Summary on 2024 Emergency Department Summary Normal [facility] Eosinophil percentageOrdered By: Logan Gifford on 2024 Eosinophils/100 WBC (Bld) 0.7 % 0-5 [facility] Erythrocyte Sed Rateon 10-09 SED RATE 30 mm/hr High 0-20 [facility] Comment on above: Performed By: #### L 501.6710, L503.6005, BTS, L100.0100, L101.9900, L500.4050, M200.1000, L300.3900 ####[facility] [address] [place], [address] Erythrocyte distribution wid th (RBC) [Ratio]Ordered By: Logan Gifford on 2024 Erythrocyte distribution width (RBC) [Entitic vol] 37.2 fL 35.1-43.9 [facility] Erythrocyte distribution wid th ratioOrdered By: Logan Gifford on 2024 Erythrocyte distribution width (RBC) [Ratio] 12.8 % 11.6-14.6 [facility] Erythrocyte sedimentation ra teOrdered By: Logan Gifford on 2024 ESR (Bld) [Velocity] 30 mm/h High 0-20 [facility] Foot min 3 Viewson 5 Foot min 3 Views Normal [facility] GFR/1.73 sq M.predicted marco g non-blacks MDRD (S/P/Bld) [Vol rate/Area]Ordered By: Logan Gifford on 2024 Estimated GFR (MDRD) Non-Af Amer 95 >60 [facility] Comment on above: mL/min/1.73m2 CKD-EP I Creatinine Equation (2020) [facility] de[facility]dered By: Ramon Garcia on 2024 Glucose [Mass/Vol] 287 mg/dL High 74-106 [facility] Comment on above: MANAGEMENT OF PATIEN T CARE PER NURSING PROTOCOL Gram stainOrdered By: Logan mejias on 2024 Microscopic observation Gram stain Nom (Unsp spec) [facility] H AND P Exam - Hospitaliston 2024 H&P Exam - Hospitalist Normal [facility] Hematocrit Auto (Bld) [Volum e fraction]Ordered By: Logan Gifford on 2024 Hematocrit (Bld) [Volume fraction] 38.6 % Low 40-54 [facility] Hemoglobin measurementOrdere d By: Logan Gifford on 2024 Hemoglobin (Bld) [Mass/Vol] 12.8 g/dL Low 13.0-16.5 [facility] Immature granulocytes/100 WB C Auto (Bld)Ordered By: Logan Ирина on 2024 Immature granulocytes/100 WBC (Bld) 0.400 % 0.0-0.9 [facility] Comment on above: IG% - Immature Granu locytes (promyelocytes, myelocytes and metamyelocytes) > 1% indicates that a LEFT SHIFT is Present. International normalized rat io (INR) calculationOrdered By: Logan Gifford on 2024 INR Coag (Bld) [Relative time] 1.3 {INR} [facility] Laboratory - Chemistry and C hemistry - challengeOrdered By: Logan Gifford on 2024 AST [Catalytic activity/Vol] 18 U/L <38 [facility] Lactic Acidon 2024 Lactate [Moles/Vol] 3.6 mmol/L Invalid Interpretation Code 0.0-2.0 [facility] Comment on above: Order Comment: Y Result [...] read back bysame. Performed By: #### L 501.6710, L503.6005, BTS, L100.0100, L101.9900, L500.4050, M200.1000, L300.3900 ####[facility] [address] [place], [address] Lactate [Moles/Vol] 2.5 mmol/L Invalid Interpretation Code 0.0-2.0 [facility] Comment on above: Result Comment: Crit ical Result(s) Called LDOTTERER at: 1902 by:LEANNA??Results read back by same. Performed By: #### L 503.6005 ####[facility] [address] [place], [address] Lactic acid measurementOrder ed By: Logan Gifford on 2024 Lactate [Moles/Vol] 2.5 mmol/L High 0.0-2.0 [facility] Comment on above: Critical Result(s) C alled LDOTTERER at: 1902 by: LEANNA Results read back by same. Lactate [Moles/Vol] 3.6 mmol/L High 0.0-2.0 [facility] Comment on above: Critical Result(s) C [...] Lymphocytes (Bld) [#/Vol] 1.04 10*3/uL 0.83-4.5 1 [facility] Lymphocytes/100 WBC Auto (Un sp spec)Ordered By: Logan Gifford on 2024 Lymphocytes/100 WBC (Bld) 9.2 % Low 19-41 [facility] MCV (mean corpuscular volume ) determinationOrdered By: Logan Gifford on 2024 MCV (RBC) [Entitic vol] 80.8 fL 80-94 [facility] Mean corpuscular hemoglobin (MCH) determinationOrdered By: Logan Gifford on 2024 MCH (RBC) [Entitic mass] 26.8 pg Low 27.0-32.0 [facility] Mean corpuscular hemoglobin concentration (MCHC) determinationOrdered By: Logan Gifford on 2024 MCHC (RBC) [Mass/Vol] 33.2 g/dL 32-36 [facility] Mean platelet volume determi nationOrdered By: Logan Gifford on 2024 Platelet mean volume (Bld) [Entitic vol] 9.8 fL 6.2-12.0 [facility] Monocyte percentageOrdered B y: Logan Gifford on 2024 Monocytes/100 WBC (Bld) 6.5 % 0-10 [facility] Neutrophil percentageOrdered By: Logan Gifford on 2024 Neutrophils/100 WBC (Bld) 82.8 % High 47-70 [facility] No Panel InformationOrdered By: Logan Gifford on 2024 18 U/L <38 [facility] Nucleated red blood cell per centageOrdered By: Logan Gifford on 2024 Nucleated RBC/100 WBC (Bld) [Ratio] 0 % 0-5 [facility] Partial Thromboplast Timeon 2024 aPTT Coag (Bld) [Time] 32.3 s Normal 24.1-36.2 [facility] Comment on above: Order Comment: CATALINA Mandel PREVIOUS SPECIMEN REJECTED DUE TOQNS. 10/09/24 Maico Gomez. Performed By: #### L 300.3900, L300.4310 ####[facility] [address] [place], [place], [id number] Platelet countOrdered By: Master Gifford on 2024 Platelets (Bld) [#/Vol] 243 10*3/uL 150-450 [facility] Potassium (Unsp spec) [Mass/ Vol]Ordered By: Logan Gifford on 2024 Potassium [Moles/Vol] 3.9 mmol/L 3.3-5.1 [facility] Prothrombin Time w/INRon INR Coag (PPP) [Relative time] 1.3 {INR} Normal [facility] Comment on above: Order Comment: CATALINA Mandel PREVIOUS SPECIMEN REJECTED DUE TOQNS. 10/09/24 Maico Gomez. Performed By: #### L 300.3900, L300.4310 ####[facility] [address], [address] PT Coag (PPP) [Time] 16.6 s High 11.7-14.9 [facility] Comment on above: Order Comment: CATALINA Frye. PREVIOUS SPECIMEN REJECTED DUE TOQNS. 10/09/24 1406 Karla Gomez. Performed By: #### L 300.3900, L300.4310 ####[facility] [address], [address] INR Normal [facility] Comment on above: Result Comment: This specimen has been REJECTED due to Laboratory criteria:Quanity Not Sufficient.JUANA has been notified of need of recollection.10/09/24 1405 Karla Damianno Performed By: #### L 501.6710, L503.6005, BTS, L100.0100, L101.9900, L500.4050, M200.1000, L300.3900 ####[facility] [address], [address] PROTIME Normal 11.7-14.9 [facility] Comment on above: Result Comment: This specimen has been REJECTED due to Laboratory criteria:Quanity Not Sufficient.JUANA has been notified of need of recollection.10/09/24 140 Karla Gomez Performed By: #### L 501.6710, L503.6005, BTS, L100.0100, L101.9900, L500.4050, M200.1000, L300.3900 ####[facility] [address], [address] Prothrombin timeOrdered By: Logan Gifford on 2024 PT Coag (PPP) [Time] 16.6 s High 11.7-14.9 [facility] RBC Auto (Bld) [#/Vol]Ordere d By: Logan Gifford on 2024 RBC (Bld) [#/Vol] 4.78 10*6/uL 4.6-6.2 [facility] Serum creatinine measurement (mass/volume)Ordered By: Logan Gifford on 2024 Creatinine [Mass/Vol] 0.81 mg/dL 0.70-1.20 [facility] Serum globulin measurementOr dered By: Logan Gifford on 2024 Globulin (S) [Mass/Vol] 3.8 g/dL 2.2-4.2 [facility] Serum glucose measurement (m ass/volume)Ordered By: Logan Gifford on 2024 Glucose [Mass/Vol] 384 mg/dL High 70-99 [facility] Serum or plasma C reactive p rotein measurement (mass/volume)Ordered By: Logan Gifford on 2024 CRP [Mass/Vol] 141.00 mg/L High 0.0-3.0 [facility] Serum or plasma alanine herrmann otransferase (ALT) measurementOrdered By: Logan Gifford on 2024 ALT [Catalytic activity/Vol] 11 U/L <47 [facility] Serum or plasma albumin everardo urement (mass/volume)Ordered By: Logan Gifford on 2024 Albumin [Mass/Vol] 3.5 g/dL 3.4-4.8 [facility] Serum or plasma albumin/glob ulin mass ratioOrdered By: Logan Gifford 2024 Albumin/Globulin [Mass ratio] 0.9 {ratio} 0.9-2.4 [facility] Serum or plasma alkaline kaiser sphatase measurementOrdered By: Logan Gifford 2024 ALP [Catalytic activity/Vol] 104 U/L 40-129 [facility] Serum or plasma calcium everardo urement (mass/volume)Ordered By: Logan Gifford 2024 Calcium [Mass/Vol] 9.0 mg/dL 7.6-11.0 [facility] Serum or plasma urea nitroge n measurement (mass/volume)Ordered By: Logan Gifford on 2024 Urea nitrogen [Mass/Vol] 8 mg/dL 4-19 [facility] Sodium levelOrdered By: Logan Gifford on 2024 Sodium [Moles/Vol] 134 mmol/L 133-145 [facility] Total proteinOrdered By: Aurelio Gifford on 2024 Protein [Mass/Vol] 7.3 g/dL 5.9-8.4 [facility] Type AND Screenon 2024 ABO and Rh group Nom (Bld) Blood group A Rh(D) negative Normal [facility] Comment on above: Order Comment: S Performed By: #### L 501.6710, L503.6005, BTS, L100.0100, L101.9900, L500.4050, M200.1000, L300.3900 ####[facility] [address] [place], [address] White blood cell (WBC) count Ordered By: Logan Gifford on 2024 WBC (Bld) [#/Vol] 11.3 10*3/uL High 4.4-11.0 [facility] aPTT Coag (PPP) [Time]Ordere d By: Logan Gifford on 2024 aPTT Coag (Bld) [Time] 32.3 s 24.1-36.2 [facility] Prealbumin [id number] Prealbumin [Mass/Vol] 15 mg/dL Normal [facility] Comment on above: Result Comment: Perf ormed at: - [facility] [place] [id number] Director: Valente Grossman PhD, Phone: [phone] Performed By: #### L 3300.6400, L100.0100, L501.9985, L500.4050 ####[facility] [address] [place], [address] Absolute lymphocyte countOrd ered By: Ramon Garcia on 09-28-2024 Lymphocytes Auto (Unsp spec) [#/Vol] 2.49 10*3/uL 0.83-4.51 [facility] Absolute neutrophil countOrd ered By: Ramon Garcia on 09-28-2024 Neutrophils (Bld) [#/Vol] 6.6 10*3/uL 2.0-7.7 [facility] Anion gap in Serum or Plasma Ordered By: Ramon Garcia on 09-28-2024 Anion gap [Moles/Vol] 16 mmol/L High 5-15 [facility] Automated lymphocyte count a s percentage of total leukocytesOrdered By: Ramon Garcia on 09-28-2024 Lymphocytes/100 WBC Auto (Unsp spec) 24.7 % 19- [facility] BUN/creatinine ratioOrdered By: Ramon Garcia on 09-28-2024 Urea nitrogen/Creatinine [Mass ratio] 17.5 mg/mg 10-20 [facility] Basophil percentageOrdered B y: Ramon Garcia on 09-28-2024 Basophils/100 WBC (Bld) 0.5 % 0-1 [facility] Bilirubin, totalOrdered By: Ramon Garcia on 09-28-2024 Bilirubin [Mass/Vol] 0.45 mg/dL 0.00-1.30 [facility] CBC W/Diff, Automatedon 09-18 Absolute Lymph 2.49 X10 3/uL Normal 0.83-4.51 [facility] Comment on above: Performed By: #### L 3300.6400, L100.0100, L501.9985, L500.4050 ####[facility] [address], [address] Absolute Neut 6.6 X10 3/uL Normal 2.0-7.7 [facility] Comment on above: Performed By: #### L 3300.6400, L100.0100, L501.9985, L500.4050 ####[facility] [address], [address] Basophils/100 WBC (Bld) 0.5 % Normal 0-1 [facility] Comment on above: Performed By: #### L 3300.6400, L100.0100, L501.9985, L500.4050 ####[facility] [address], [address] Eosinophils/100 WBC (Bld) 2.8 % Normal 0-5 [facility] Comment on above: Performed By: #### L 3300.6400, L100.0100, L501.9985, L500.4050 ####[facility] [address], [address] Erythrocyte distribution width (RBC) [Ratio] 13.2 % Normal 11.6-14.6 [facility] Comment on above: Performed By: #### L 3300.6400, L100.0100, L501.9985, L500.4050 ####[facility] [address], [address] Hematocrit (Bld) [Volume fraction] 43.0 % Normal 40-54 [facility] Comment on above: Performed By: #### L 3300.6400, L100.0100, L501.9985, L500.4050 ####[facility] [address], [address] Hemoglobin (Bld) [Mass/Vol] 14.2 g/dL Normal 13.0-16.5 [facility] Comment on above: Performed By: #### L 3300.6400, L100.0100, L501.9985, L500.4050 ####[facility] [address], [address] IG% 0.400 Normal 0.0-0.9 [facility] Comment on above: Result Comment: IG% - Immature Granulocytes (promyelocytes, myelocytes andmetamyelocytes) > 1% indicates that a LEFT SHIFT is Present. Performed By: #### L 3300.6400, L100.0100, L501.9985, L500.4050 ####[facility] [address], [address] Lymphocytes/100 WBC (Bld) 24.7 % Normal 19-41 [facility] Comment on above: Performed By: #### L 3300.6400, L100.0100, L501.9985, L500.4050 ####[facility] [address] [place], [address] MCH (RBC) [Entitic mass] 27.5 pg Normal 27.0-32.0 [facility] Comment on above: Performed By: #### L 3300.6400, L100.0100, L501.9985, L500.4050 ####[facility] [address], [address] MCHC (RBC) [Mass/Vol] 33.0 g/dL Normal 32-36 [facility] Comment on above: Performed By: #### L 3300.6400, L100.0100, L501.9985, L500.4050 ####[facility] [address], [address] MCV (RBC) [Entitic vol] 83.2 fL Normal 80-94 [facility] Comment on above: Performed By: #### L 3300.6400, L100.0100, L501.9985, L500.4050 ####[facility] [address], [address] Monocytes/100 WBC (Bld) 6.0 % Normal 0-10 [facility] Comment on above: Performed By: #### L 3300.6400, L100.0100, L501.9985, L500.4050 ####[facility] [address], [address] Neutrophils/100 WBC (Bld) 65.6 % Normal 47-70 [facility] Comment on above: Performed By: #### L 3300.6400, L100.0100, L501.9985, L500.4050 ####[facility] [address], [address] Nucleated RBC (Bld) [#/Vol] 0 10*3/uL Normal 0-5 [facility] Comment on above: Performed By: #### L 3300.6400, L100.0100, L501.9985, L500.4050 ####[facility] [address], [address] Platelet mean volume (Bld) [Entitic vol] 10.3 fL Normal 6.2-12.0 [facility] Comment on above: Performed By: #### L 3300.6400, L100.0100, L501.9985, L500.4050 ####[facility] [address], [address] Platelets (Bld) [#/Vol] 252 10*3/uL Normal 150-450 [facility] Comment on above: Performed By: #### L 3300.6400, L100.0100, L501.9985, L500.4050 ####[facility] [address], [address] RBC (Bld) [#/Vol] 5.17 10*6/uL Normal 4.6-6.2 [facility] Comment on above: Performed By: #### L 3300.6400, L100.0100, L501.9985, L500.4050 ####[facility] [address], [address] RDW SD 40.0 fl Normal 35.1-43.9 [facility] Comment on above: Performed By: #### L 3300.6400, L100.0100, L501.9985, L500.4050 ####[facility] [address], [address] WBC (Bld) [#/Vol] 10.1 10*3/uL Normal 4.4-11.0 [facility] Comment on above: Performed By: #### L 3300.6400, L100.0100, L501.9985, L500.4050 ####[facility] [address], [address] Carbon dioxide, total [Moles /volume] in Central venous bloodOrdered By: Ramon Garcia on 09-28-2024 CO2 [Moles/Vol] 23.6 mmol/L 21.0-32.0 [facility] Chloride assayOrdered By: Juarez Garcia on 09-28-2024 Chloride [Moles/Vol] 97 mmol/L Low 98-108 [facility] Comprehensive Metabolic Prof ilon 09-28-2024 Albumin [Mass/Vol] 3.6 g/dL Normal 3.4-4.8 [facility] Comment on above: Performed By: #### L 3300.6400, L100.0100, L501.9985, L500.4050 ####[facility] [address], [address] Albumin/Globulin [Mass ratio] 0.9 {ratio} Normal 0.9-2.4 [facility] Comment on above: Performed By: #### L 3300.6400, L100.0100, L501.9985, L500.4050 ####[facility] [address] [place], [address] ALK PHOS 133 U/L High 40-129 [facility] Comment on above: Performed By: #### L 3300.6400, L100.0100, L501.9985, L500.4050 ####[facility] [address], [address] ALT [Catalytic activity/Vol] 15 U/L Normal <=46 [facility] Comment on above: Performed By: #### L 3300.6400, L100.0100, L501.9985, L500.4050 ####[facility] [address] [place], [address] AST [Catalytic activity/Vol] 23 U/L Normal <=37 [facility] Comment on above: Performed By: #### L 3300.6400, L100.0100, L501.9985, L500.4050 ####[facility] [address] [place], [address] Bilirubin [Mass/Vol] 0.45 mg/dL Normal 0.00-1.30 [facility] Comment on above: Performed By: #### L 3300.6400, L100.0100, L501.9985, L500.4050 ####[facility] [address] [place], [address] BUN/CRE 17.5 RATIO Normal 10-20 [facility] Comment on above: Performed By: #### L 3300.6400, L100.0100, L501.9985, L500.4050 ####[facility] [address] [place], [address] Calcium [Mass/Vol] 9.4 mg/dL Normal 7.6-11.0 [facility] Comment on above: Performed By: #### L 3300.6400, L100.0100, L501.9985, L500.4050 ####[facility] [address] [place], [address] Chloride [Moles/Vol] 97 mmol/L Low 98-108 [facility] Comment on above: Performed By: #### L 3300.6400, L100.0100, L501.9985, L500.4050 ####[facility] [address] [place], [address] CO2 [Moles/Vol] 23.6 mmol/L Normal 21.0-32.0 [facility] Comment on above: Performed By: #### L 3300.6400, L100.0100, L501.9985, L500.4050 ####[facility] [address], [address] Creatinine [Mass/Vol] 0.78 mg/dL Normal 0.70-1.20 [facility] Comment on above: Performed By: #### L 3300.6400, L100.0100, L501.9985, L500.4050 ####[facility] [address], [address] GAP 16 High 5-15 [facility] Comment on above: Performed By: #### L 3300.6400, L100.0100, L501.9985, L500.4050 ####[facility] [address], [address] GFR/1.73 sq M.predicted among non-blacks MDRD (S/P/Bld) [Vol rate/Area] 97 mL/min/{1.73_m2} Normal >60 [facility] Comment on above: Result Comment: mL/m in/1.73m2 CKD-EPI Creatinine Equation (2020) Performed By: #### L 3300.6400, L100.0100, L501.9985, L500.4050 ####[facility] [address], [address] Globulin (S) [Mass/Vol] 4.0 g/dL Normal 2.2-4.2 [facility] Comment on above: Performed By: #### L 3300.6400, L100.0100, L501.9985, L500.4050 ####[facility] [address], [address] Glucose [Mass/Vol] 361 mg/dL High 70-99 [facility] Comment on above: Performed By: #### L 3300.6400, L100.0100, L501.9985, L500.4050 ####[facility] [address], [address] Potassium [Moles/Vol] 4.3 mmol/L Normal 3.3-5.1 [facility] Comment on above: Performed By: #### L 3300.6400, L100.0100, L501.9985, L500.4050 ####[facility] [address], [address] Sodium [Moles/Vol] 136 mmol/L Normal 133-145 [facility] Comment on above: Performed By: #### L 3300.6400, L100.0100, L501.9985, L500.4050 ####[facility] [address], [address] T PROT 7.6 g/dL Normal 5.9-8.4 [facility] Comment on above: Performed By: #### L 3300.6400, L100.0100, L501.9985, L500.4050 ####[facility] [address], [address] Urea nitrogen [Mass/Vol] 14 mg/dL Normal 4-19 [facility] Comment on above: Performed By: #### L 3300.6400, L100.0100, L501.9985, L500.4050 ####[facility] [address], [address] Eosinophil percentageOrdered By: Ramon Garcia on 09-28-2024 Eosinophils/100 WBC (Bld) 2.8 % 0-5 [facility] Erythrocyte distribution wid th (RBC) [Ratio]Ordered By: Ramon Garcia on 09-28-2024 Erythrocyte distribution width (RBC) [Entitic vol] 40.0 fL 35.1-43.9 [facility] Erythrocyte distribution wid th ratioOrdered By: Ramon Garcia on 09-28-2024 Erythrocyte distribution width (RBC) [Ratio] 13.2 % 11.6-14.6 [facility] Erythrocyte distribution wid th standard deviationOrdered By: Ramon Garcia on 09-28-2024 Erythrocyte distribution width (RBC) [Ratio] 40.0 fl 35.1-43.9 [facility] GFR/1.73 sq M.predicted marco g non-blacks MDRD (S/P/Bld) [Vol rate/Area]Ordered By: Ramon Garcia on 09-28-2024 Estimated GFR (MDRD) Non-Af Amer 97 >60 [facility] Comment on above: mL/min/1.73m2 CKD-EP I Creatinine Equation (2020) Glomerular filtration rate ( GFR) estimation/1.73 sq m using serum, plasma, or whole bOrdered By: Ramon Garcia on 09-28-2024 GFR/1.73 sq M.predicted among non-blacks MDRD (S/P/Bld) [Vol rate/Area] 97 mL/min/{1.73_m2} >60 [facility] Comment on above: mL/min/1.73m2 CKD-EP I Creatinine Equation (2020) Hematocrit Auto (Bld) [Volum e fraction]Ordered By: Ramon Garcia on 09-28-2024 Hematocrit (Bld) [Volume fraction] 43.0 % 40-54 [facility] Hemoglobin A1con 09-28-2024 HbA1c (Bld) [Mass fraction] 11.1 % High <=5.6 [facility] Comment on above: Result Comment: Norm al < 5.7 % Prediabetic 5.7 - 6.4 % Diabetic >or= 6.5 % Please note range changes. Performed By: #### L 3300.6400, L100.0100, L501.9985, L500.4050 ####[facility] [address] [place], [place], [id number] Hemoglobin A1c percentageOrd ered By: Ramon Garcia on 09-28-2024 HbA1c (Bld) [Mass fraction] 11.1 % High <5.7 [facility] Comment on above: Normal < 5.7 % Predi abetic 5.7 - 6.4 % Diabetic >or= 6.5 % Please note range changes. Hemoglobin measurementOrdere d By: Ramon Garcia on 09-28-2024 Hemoglobin (Bld) [Mass/Vol] 14.2 g/dL 13.0-16.5 [facility] Immature granulocytes/100 WB C Auto (Bld)Ordered By: Ramon Garcia on 09-28-2024 Immature granulocytes/100 WBC (Bld) 0.400 % 0.0-0.9 [facility] Comment on above: IG% - Immature Granu locytes (promyelocytes, myelocytes and metamyelocytes) > 1% indicates that a LEFT SHIFT is Present. Laboratory - Chemistry and C hemistry - challengeOrdered By: Ramon Garcia on 09-28-2024 AST [Catalytic activity/Vol] 23 U/L <38 [facility] Lymphocytes Auto (Unsp spec) [#/Vol]Ordered By: Ramon Garcia on 09-28-2024 Lymphocytes (Bld) [#/Vol] 2.49 10*3/uL 0.83-4.5 1 [facility] Lymphocytes/100 WBC Auto (Un sp spec)Ordered By: Ramon Garcia on 09-28-2024 Lymphocytes/100 WBC (Bld) 24.7 % 19-41 [facility] MCV (mean corpuscular volume ) determinationOrdered By: Ramon Garcia on 09-28-2024 MCV (RBC) [Entitic vol] 83.2 fL 80-94 [facility] Mean corpuscular hemoglobin (MCH) determinationOrdered By: Ramon Garcia on 09-28-2024 MCH (RBC) [Entitic mass] 27.5 pg 27.0-32.0 [facility] Mean corpuscular hemoglobin concentration (MCHC) determinationOrdered By: Ramon Garcia on 09-28-2024 MCHC (RBC) [Mass/Vol] 33.0 g/dL 32-36 [facility] Mean platelet volume determi nationOrdered By: Ramon Garcia on 09-28-2024 Platelet mean volume (Bld) [Entitic vol] 10.3 fL 6.2-12.0 [facility] Monocyte percentageOrdered B y: Ramon Garcia on 09-28-2024 Monocytes/100 WBC (Bld) 6.0 % 0-10 [facility] Neutrophil percentageOrdered By: Ramon Garcia on 09-28-2024 Neutrophils/100 WBC (Bld) 65.6 % 47-70 [facility] No Panel InformationOrdered By: Ramon Garcia on 09-28-2024 23 U/L <38 [facility] Nucleated red blood cell per centageOrdered By: Ramon Garcia on 09-28-2024 Nucleated RBC/100 WBC (Bld) [Ratio] 0 % 0-5 [facility] Platelet countOrdered By: Juarez Garcia on 09-28-2024 Platelets (Bld) [#/Vol] 252 10*3/uL 150-450 [facility] Potassium (Unsp spec) [Mass/ Vol]Ordered By: Ramon Garcia on 09-28-2024 Potassium [Moles/Vol] 4.3 mmol/L 3.3-5.1 [facility] Potassium measurement (mass/ volume)Ordered By: Ramon Garcia on 09-28-2024 Potassium (Unsp spec) [Mass/Vol] 4.3 mmol/L 3.3-5.1 [facility] RBC Auto (Bld) [#/Vol]Ordere d By: Ramon Garcia on 09-28-2024 RBC (Bld) [#/Vol] 5.17 10*6/uL 4.6-6.2 [facility] Serum creatinine measurement (mass/volume)Ordered By: Ramon Garcia on 09-28-2024 Creatinine [Mass/Vol] 0.78 mg/dL 0.70-1.20 [facility] Serum globulin measurementOr dered By: Ramon Garcia on 09-28-2024 Globulin (S) [Mass/Vol] 4.0 g/dL 2.2-4.2 [facility] Serum glucose measurement (m ass/volume)Ordered By: Ramon Garcia on 09-28-2024 Glucose [Mass/Vol] 361 mg/dL High 70-99 [facility] Serum or plasma alanine herrmann otransferase (ALT) measurementOrdered By: Ramon Garcia on 09-28-2024 ALT [Catalytic activity/Vol] 15 U/L <47 [facility] Serum or plasma albumin everardo urement (mass/volume)Ordered By: Ramon Garcia on 09-28-2024 Albumin [Mass/Vol] 3.6 g/dL 3.4-4.8 [facility] Serum or plasma albumin/glob ulin mass ratioOrdered By: Ramon Garcia on 09-28-2024 Albumin/Globulin [Mass ratio] 0.9 {ratio} 0.9-2.4 [facility] Serum or plasma alkaline kaiser sphatase measurementOrdered By: Rmaon Garcia on 09-28-2024 ALP [Catalytic activity/Vol] 133 U/L High 40-129 [facility] Serum or plasma calcium everardo urement (mass/volume)Ordered By: Ramon Garcia on 09-28-2024 Calcium [Mass/Vol] 9.4 mg/dL 7.6-11.0 [facility] Serum or plasma urea nitroge n measurement (mass/volume)Ordered By: Ramon Garcia on 09-28-2024 Urea nitrogen [Mass/Vol] 14 mg/dL 4-19 [facility] Serum prealbumin measurement by immunoassayOrdered By: Ramon Garcia on 09-28-2024 Prealbumin [Mass/Vol] 15 mg/dL [facility] Comment on above: Performed at: [address] [id number] Director: Valente Grossman PhD, Phone: [phone] Serum prealbumin measurement by immunoassay 15 mg/dL [facility] Sodium levelOrdered By: Curtis Garcia on 09-28-2024 Sodium [Moles/Vol] 136 mmol/L 133-145 [facility] Total proteinOrdered By: Jemal Garcia on 09-28-2024 Protein [Mass/Vol] 7.6 g/dL 5.9-8.4 [facility] White blood cell (WBC) count Ordered By: Ramon Garcia on 09-28-2024 WBC (Bld) [#/Vol] 10.1 10*3/uL 4.4-11.0 [facility] Wound Ctr History AND Physic arely 09-25-2024 Wound Ctr History & Physical Normal [facility] Wound Cultureon 08-27-2024 WC Normal [facility] Comment on above: Performed By: #### M 100.2000, M100.3000 ####[facility] [address] [place], [address] Gram Stainon 08-24-2024 GS Gram Stain 1+ Gram positive cocci Rare Gram negative rods No White Blood Cells No Epithelial cells Normal [facility] Comment on above: Performed By: #### M 100.2000, M100.3000 ####[facility] [address] [place], [place], [id number] Gram stainOrdered By: Ramon Garcia on 08-22-2024 Microscopic observation Gram stain Nom (Unsp spec) [facility] Routine wound cultureOrdered By: Ramon Garcia on 08-22-2024 Wound Culture Proteus mirabilis Abnormal [facility] Wound Culture Negative Abnormal [facility] PSA,Total - Annual Screenon 08-02-2024 PSA,TOT SCREEN 3.29 ng/mL Normal 0.00-4.00 [facility] Comment on above: Result Comment: This test was performed using the TPSA assay method for thePlays[employer]on chemistry system. Values obtained with differentassay methods cannot be used interchangably.When changing PSA assays in the course of monitoring apatient, additional sequential testing should be carriedout to confirm baseline values. Performed By: #### L 501.9910 ####[facility] [address] [facility] [address] [place], [place], [address] Screening prostate specific antigen (PSA) measurementOrdered By: Bernabe Reese on 08-02-2024 Prostate Specific Antigen Screen 3.29 ng/mL 0.00-4.00 [facility] Comment on above: This test was perfor med using the TPSA assay method for theDi[employer]sion chemistry system. Values obtained with differentassay methods cannot be used interchangably.When changing PSA assays in the course of monitoring apatient, additional sequential testing should be carriedout to confirm baseline values. Absolute neutrophil countOrd ered By: Bernabe Reese on 06-19-2024 Neutrophils (Bld) [#/Vol] 5.2 10*3/uL 2.0-7.7 [facility] Albumin to globulin ratioOrd ered By: Bernabe Reese on 06-19-2024 Albumin/Globulin [Mass ratio] 0.8 {ratio} Low 0.9-2.4 [facility] Basophil percentageOrdered B y: Bernabe Reese on 06-19-2024 Basophils/100 WBC (Bld) 0.6 % 0-1 [facility] Bilirubin, totalOrdered By: Bernabe Reese on 06-19-2024 Bilirubin [Mass/Vol] 0.40 mg/dL 0.20-1.00 [facility] Comment on above: For patients on eltr ombopag therapy, use of Dimension [place] TBIL is not recommended. Blood urea nitrogen (BUN)/cr eatinine ratioOrdered By: Bernabe Reese on 06-19-2024 Urea nitrogen/Creatinine [Mass ratio] 16.8 mg/mg 10-20 [facility] CBC W/Diff, Automatedon 05-22 Absolute Lymph 2.24 X10 3/uL Normal 0.83-4.51 [facility] Comment on above: Order Comment: Order Date: 06/19/24Order Info: [id number] - CBCD Performed By: #### L 100.0100, L501.5200, L500.4050, L502.0250, L501.9985, L500.4100 ####[facility] [address] [facility] [place], [address] Absolute Neut 5.2 X10 3/uL Normal 2.0-7.7 [facility] Comment on above: Order Comment: Order Date: 06/19/24Order Info: [id number] - CBCD Performed By: #### L 100.0100, L501.5200, L500.4050, L502.0250, L501.9985, L500.4100 ####[facility] [address] [place], [address] Basophils/100 WBC (Bld) 0.6 % Normal 0-1 [facility] Comment on above: Order Comment: Order Date: 06/19/24Order Info: [id number] - CBCD Performed By: #### L 100.0100, L501.5200, L500.4050, L502.0250, L501.9985, L500.4100 ####[facility] [address] [place], [address] Eosinophils/100 WBC (Bld) 2.8 % Normal 0-5 [facility] Comment on above: Order Comment: Order Date: 06/19/24Order Info: 183- - CBCD Performed By: #### L 100.0100, L501.5200, L500.4050, L502.0250, L501.9985, L500.4100 ####[facility] [address], [address] Erythrocyte distribution width (RBC) [Ratio] 13.5 % Normal 11.6-14.6 [facility] Comment on above: Order Comment: Order Date: 06/19/24Order Info: [id number]- - CBCD Performed By: #### L 100.0100, L501.5200, L500.4050, L502.0250, L501.9985, L500.4100 ####[facility] [address] [place], [place], [phone] Hematocrit (Bld) [Volume fraction] 44.1 % Normal 40-54 [facility] Comment on above: Order Comment: Order Date: 06/19/24Order Info: [id number]- - CBCD Performed By: #### L 100.0100, L501.5200, L500.4050, L502.0250, L501.9985, L500.4100 ####[facility] [address], [address] Hemoglobin (Bld) [Mass/Vol] 14.6 g/dL Normal 13.0-16.5 [facility] Comment on above: Order Comment: Order Date: 06/19/24Order Info: [id number]- - CBCD Performed By: #### L 100.0100, L501.5200, L500.4050, L502.0250, L501.9985, L500.4100 ####[facility] [address], [address] IG% 0.500 Normal 0.0-0.9 [facility] Comment on above: Order Comment: Order Date: 06/19/24Order Info: [id number]- - CBCD Result Comment: IG% - Immature Granulocytes (promyelocytes, myelocytes andmetamyelocytes) > 1% indicates that a LEFT SHIFT is Present. Performed By: #### L 100.0100, L501.5200, L500.4050, L502.0250, L501.9985, L500.4100 ####[facility] [address], [address] Lymphocytes/100 WBC (Bld) 27.3 % Normal 19-41 [facility] Comment on above: Order Comment: Order Date: 06/19/24Order Info: [id number] - CBCD Performed By: #### L 100.0100, L501.5200, L500.4050, L502.0250, L501.9985, L500.4100 ####[facility] [address], [address] MCH (RBC) [Entitic mass] 27.7 pg Normal 27.0-32.0 [facility] Comment on above: Order Comment: Order Date: 06/19/24Order Info: [id number] - CBCD Performed By: #### L 100.0100, L501.5200, L500.4050, L502.0250, L501.9985, L500.4100 ####[facility] [address], [address] MCHC (RBC) [Mass/Vol] 33.1 g/dL Normal 32-36 [facility] Comment on above: Order Comment: Order Date: 06/19/24Order Info: [id number] - CBCD Performed By: #### L 100.0100, L501.5200, L500.4050, L502.0250, L501.9985, L500.4100 ####[facility] [address], [address] MCV (RBC) [Entitic vol] 83.7 fL Normal 80-94 [facility] Comment on above: Order Comment: Order Date: 06/19/24Order Info: 183- - CBCD Performed By: #### L 100.0100, L501.5200, L500.4050, L502.0250, L501.9985, L500.4100 ####[facility] [address], [address] Monocytes/100 WBC (Bld) 5.7 % Normal 0-10 [facility] Comment on above: Order Comment: Order Date: 06/19/24Order Info: [id number] - CBCD Performed By: #### L 100.0100, L501.5200, L500.4050, L502.0250, L501.9985, L500.4100 ####[facility] [address] [place], [address] Neutrophils/100 WBC (Bld) 63.1 % Normal 47-70 [facility] Comment on above: Order Comment: Order Date: 06/19/24Order Info: [id number] - CBCD Performed By: #### L 100.0100, L501.5200, L500.4050, L502.0250, L501.9985, L500.4100 ####[facility] [address], [address] Nucleated RBC (Bld) [#/Vol] 0 10*3/uL Normal 0-5 [facility] Comment on above: Order Comment: Order Date: 06/19/24Order Info: 018- - CBCD Performed By: #### L 100.0100, L501.5200, L500.4050, L502.0250, L501.9985, L500.4100 ####[facility] [address], [address] Platelet mean volume (Bld) [Entitic vol] 10.6 fL Normal 6.2-12.0 [facility] Comment on above: Order Comment: Order Date: 06/19/24Order Info: 183- - CBCD Performed By: #### L 100.0100, L501.5200, L500.4050, L502.0250, L501.9985, L500.4100 ####[facility] [address], [address] Platelets (Bld) [#/Vol] 206 10*3/uL Normal 150-450 [facility] Comment on above: Order Comment: Order Date: 06/19/24Order Info: [id number] - CBCD Performed By: #### L 100.0100, L501.5200, L500.4050, L502.0250, L501.9985, L500.4100 ####[facility] [address], [address] RBC (Bld) [#/Vol] 5.27 10*6/uL Normal 4.6-6.2 [facility] Comment on above: Order Comment: Order Date: 06/19/24Order Info: [id number] - CBCD Performed By: #### L 100.0100, L501.5200, L500.4050, L502.0250, L501.9985, L500.4100 ####[facility] [address], [address] RDW SD 41.1 fl Normal 35.1-43.9 [facility] Comment on above: Order Comment: Order Date: 06/19/24Order Info: 183- - CBCD Performed By: #### L 100.0100, L501.5200, L500.4050, L502.0250, L501.9985, L500.4100 ####[facility] [address] [place], [place], [address] WBC (Bld) [#/Vol] 8.2 10*3/uL Normal 4.4-11.0 [facility] Comment on above: Order Comment: Order Date: 06/19/24Order Info: [id number] - CBCD Performed By: #### L 100.0100, L501.5200, L500.4050, L502.0250, L501.9985, L500.4100 ####[facility] [address] [place], [place], [address] Carbon dioxide measurementOr dered By: Bernabe Reese on 06-19-2024 CO2 [Moles/Vol] 27.0 mmol/L 21.0-32.0 [facility] Chloride measurementOrdered By: Bernabe Reese on 06-19-2024 Chloride [Moles/Vol] 101 mmol/L 98-107 [facility] Comprehensive Metabolic Prof ilon 06-19-2024 Albumin [Mass/Vol] 3.2 g/dL Normal 3.2-5.0 [facility] Comment on above: Order Comment: Order Date: 06/19/24Order Info: [id number] - CMPOrder Info: [id number] - LIPIDOrder Info: - MG Performed By: #### L 100.0100, L501.5200, L500.4050, L502.0250, L501.9985, L500.4100 ####[facility] [address] [place], [address] Albumin/Globulin [Mass ratio] 0.8 {ratio} Low 0.9-2.4 [facility] Comment on above: Order Comment: Order Date: 06/19/24Order Info: [id number] - CMPOrder Info: [id number] - LIPIDOrder Info: [id number] - MG Performed By: #### L 100.0100, L501.5200, L500.4050, L502.0250, L501.9985, L500.4100 ####[facility] [address], [address] ALK P 136 U/L High 45-117 [facility] Comment on above: Order Comment: Order Date: 06/19/24Order Info: [id number] - CMPOrder Info: [id number] - LIPIDOrder Info: [id number] - MG Performed By: #### L 100.0100, L501.5200, L500.4050, L502.0250, L501.9985, L500.4100 ####[facility] [address], [address] ALT [Catalytic activity/Vol] 29 U/L Normal 16-61 [facility] Comment on above: Order Comment: Order Date: 06/19/24Order Info: [id number] - CMPOrder Info: [id number] - LIPIDOrder Info: [id number] - MG Performed By: #### L 100.0100, L501.5200, L500.4050, L502.0250, L501.9985, L500.4100 ####[facility] [address] [place], [address] AST [Catalytic activity/Vol] 32 U/L Normal 15-37 [facility] Comment on above: Order Comment: Order Date: 06/19/24Order Info: 07-1 - CMPOrder Info: [id number] - LIPIDOrder Info: [id number] - MG Performed By: #### L 100.0100, L501.5200, L500.4050, L502.0250, L501.9985, L500.4100 ####[facility] [address], [address] Bilirubin [Mass/Vol] 0.40 mg/dL Normal 0.20-1.00 [facility] Comment on above: Order Comment: Order Date: 06/19/24Order Info: [id number] - CMPOrder Info: [id number] - LIPIDOrder Info: [id number] - MG Result Comment: For patients on eltrombopag therapy, use of Dimension [place] TBIL is not recommended. Performed By: #### L 100.0100, L501.5200, L500.4050, L502.0250, L501.9985, L500.4100 ####[facility] [address], [address] BUN/CRE 16.8 RATIO Normal 10-20 [facility] Comment on above: Order Comment: Order Date: 06/19/24Order Info: [id number] - CMPOrder Info: [id number] - LIPIDOrder Info: [id number] - MG Performed By: #### L 100.0100, L501.5200, L500.4050, L502.0250, L501.9985, L500.4100 ####[facility] [address], [address] CA,Total 9.3 mg/dL Normal 8.5-10.1 [facility] Comment on above: Order Comment: Order Date: 06/19/24Order Info: [id number] - CMPOrder Info: [id number] - LIPIDOrder Info: [id number] - MG Performed By: #### L 100.0100, L501.5200, L500.4050, L502.0250, L501.9985, L500.4100 ####[facility] [address], [address] Chloride [Moles/Vol] 101 mmol/L Normal 98-107 [facility] Comment on above: Order Comment: Order Date: 06/19/24Order Info: [id number] - CMPOrder Info: [id number] - LIPIDOrder Info: [id number] - MG Performed By: #### L 100.0100, L501.5200, L500.4050, L502.0250, L501.9985, L500.4100 ####[facility] [address], [address] CO2 [Moles/Vol] 27.0 mmol/L Normal 21.0-32.0 [facility] Comment on above: Order Comment: Order Date: 06/19/24Order Info: [id number] - CMPOrder Info: [id number] - LIPIDOrder Info: [id number] - MG Performed By: #### L 100.0100, L501.5200, L500.4050, L502.0250, L501.9985, L500.4100 ####[facility] [address], [address] Creatinine [Mass/Vol] 0.90 mg/dL Normal 0.70-1.30 [facility] Comment on above: Order Comment: Order Date: 06/19/24Order Info: [id number] - CMPOrder Info: [id number] - LIPIDOrder Info: [id number] - MG Result Comment: The validity of the calculated GFR GFRAA in patients over70 years has not been determined. Clinical correlation isessential. Performed By: #### L 100.0100, L501.5200, L500.4050, L502.0250, L501.9985, L500.4100 ####[facility] [address] [place], [place], [address] EST GFR - AA 108 mL/min Normal >60 [facility] Comment on above: Order Comment: Order Date: 06/19/24Order Info: [id number] - CMPOrder Info: [id number] - LIPIDOrder Info: [id number] - MG Result Comment: Afri can Thai GFR Calc Performed By: #### L 100.0100, L501.5200, L500.4050, L502.0250, L501.9985, L500.4100 ####[facility] [address], [address] GAP 8 Normal 5-15 [facility] Comment on above: Order Comment: Order Date: 06/19/24Order Info: [id number] - CMPOrder Info: [id number] - LIPIDOrder Info: [id number] - MG Performed By: #### L 100.0100, L501.5200, L500.4050, L502.0250, L501.9985, L500.4100 ####[facility] [address], [address] GFR/1.73 sq M.predicted among non-blacks MDRD (S/P/Bld) [Vol rate/Area] 89 mL/min/{1.73_m2} Normal >60 [facility] Comment on above: Order Comment: Order Date: 06/19/24Order Info: [id number] - CMPOrder Info: [id number] - LIPIDOrder Info: [id number] - MG Result Comment: Non- GFR Calc Performed By: #### L 100.0100, L501.5200, L500.4050, L502.0250, L501.9985, L500.4100 ####[facility] [address] [place], [place], [address] Globulin (S) [Mass/Vol] 4.2 g/dL Normal 2.2-4.2 [facility] Comment on above: Order Comment: Order Date: 06/19/24Order Info: [id number] - CMPOrder Info: [id number] - LIPIDOrder Info: [id number] - MG Performed By: #### L 100.0100, L501.5200, L500.4050, L502.0250, L501.9985, L500.4100 ####[facility] [address], [address] Glucose [Mass/Vol] 367 mg/dL High 74-106 [facility] Comment on above: Order Comment: Order Date: 06/19/24Order Info: [id number] - CMPOrder Info: [id number] - LIPIDOrder Info: [id number] - MG Result Comment: Gluc ose result greater than or equal to 200 mg/dLsuggests DIABETES MELLITUS per A.D.A. criteria. Performed By: #### L 100.0100, L501.5200, L500.4050, L502.0250, L501.9985, L500.4100 ####[facility] [address], [address] Potassium [Moles/Vol] 4.0 mmol/L Normal 3.5-5.1 [facility] Comment on above: Order Comment: Order Date: 06/19/24Order Info: [id number] - CMPOrder Info: [id number] - LIPIDOrder Info: [id number] - MG Performed By: #### L 100.0100, L501.5200, L500.4050, L502.0250, L501.9985, L500.4100 ####[facility] [address], [address] Sodium [Moles/Vol] 135 mmol/L Low 136-145 [facility] Comment on above: Order Comment: Order Date: 06/19/24Order Info: [id number] - CMPOrder Info: [id number] - LIPIDOrder Info: [id number] - MG Performed By: #### L 100.0100, L501.5200, L500.4050, L502.0250, L501.9985, L500.4100 ####[facility] [address], [address] T PROT 7.4 g/dL Normal 6.4-8.2 [facility] Comment on above: Order Comment: Order Date: 06/19/24Order Info: [id number] - CMPOrder Info: [id number] - LIPIDOrder Info: [id number] - MG Performed By: #### L 100.0100, L501.5200, L500.4050, L502.0250, L501.9985, L500.4100 ####[facility] [address], [address] Urea nitrogen [Mass/Vol] 15 mg/dL Normal 7-18 [facility] Comment on above: Order Comment: Order Date: 06/19/24Order Info: [id number] - CMPOrder Info: [id number] - LIPIDOrder Info: [id number] - MG Performed By: #### L 100.0100, L501.5200, L500.4050, L502.0250, L501.9985, L500.4100 ####[facility] [address] [place], [address] Eosinophil percentageOrdered By: Bernabe Reese on 06-19-2024 Eosinophils/100 WBC (Bld) 2.8 % 0-5 [facility] Erythrocyte distribution wid th ratioOrdered By: Bernabe Reese on 06-19-2024 Erythrocyte distribution width (RBC) [Ratio] 13.5 % 11.6-14.6 [facility] Erythrocyte distribution wid th standard deviationOrdered By: Bernabe Reese on 06-19-2024 Erythrocyte distribution width (RBC) [Entitic vol] 41.1 fL 35.1-43.9 [facility] Estimated glomerular filtrat ion rate (GFR) AmericanOrdered By: Bernabe Reese on 06-19-2024 Estimated GFR (MDRD) Amer 108 mL/min >60 [facility] Comment on above: GFR Calc Glomerular filtration rate ( GFR) estimationOrdered By: Bernabe Reese on 06-19-2024 Estimated GFR (MDRD) Non-Af Amer 89 mL/min >60 [facility] Comment on above: Non- GFR Calc Glucose measurementOrdered B y: Bernabe Reese on 06-19-2024 Glucose [Mass/Vol] 367 mg/dL High 74-106 [facility] Comment on above: Glucose result great er than or equal to 200 mg/dLsuggests DIABETES MELLITUS per A.D.A. criteria. Hematocrit Auto (Bld) [Volum e fraction]Ordered By: Bernabe Reese on 06-19-2024 Hematocrit (Bld) [Volume fraction] 44.1 % 40-54 [facility] Hemoglobin A1con 06-19-2024 HbA1c (Bld) [Mass fraction] 10.4 % High 3.8-5.6 [facility] [place] Comment on above: Order Comment: Order Date: 06/19/24Order Info: [id number] - A1C Result Comment: Norm al < 5.7 % Prediabetic 5.7 - 6.4 % Diabetic >or= 6.5 % Please note range changes. Performed By: #### L 100.0100, L501.5200, L500.4050, L502.0250, L501.9985, L500.4100 ####[facility] [id number] [place], [address] Hemoglobin A1c percentageOrd ered By: Bernabe Reese on 06-19-2024 HbA1c (Bld) [Mass fraction] 10.4 % High 3.8-5.6 [facility] [place] Comment on above: Normal < 5.7 % Predi abetic 5.7 - 6.4 % Diabetic >or= 6.5 % Please note range changes. Hemoglobin measurementOrdere d By: Bernabe Reese on 06-19-2024 Hemoglobin (Bld) [Mass/Vol] 14.6 g/dL 13.0-16.5 [facility] High density lipoprotein (HD L) measurementOrdered By: Bernabe Reese on 06-19-2024 Cholesterol in HDL [Mass/Vol] 36 mg/dL Low >40 [facility] [place] Comment on above: The drugs N-Acetylcy steine and Metamizole may falsely depress this assay. Reference Range HDL <40 mg/dL Low HDL Cholesterol HDL >or= 60 mg/dL High HDL Cholesterol Immature granulocytes/100 WB C Auto (Bld)Ordered By: Bernabe Reese on 06-19-2024 Immature granulocytes/100 WBC (Bld) 0.500 % 0.0-0.9 [facility] Comment on above: IG% - Immature Granu locytes (promyelocytes, myelocytes and metamyelocytes) > 1% indicates that a LEFT SHIFT is Present. Laboratory - Chemistry and C hemistry - challengeOrdered By: Bernabe Reese on 06-19-2024 AST [Catalytic activity/Vol] 32 U/L 15-37 [facility] Lipid Profileon 06-19-2024 Cholesterol [Mass/Vol] 179 mg/dL Normal 200 [facility] Comment on above: Order Comment: Order Date: 06/19/24Order Info: [id number] - CMPOrder Info: [id number] - LIPIDOrder Info: [id number] - MG Result Comment: <200 mg/dL Desirable 200-240 mg/dL Borderline >240 mg/dL High Risk Performed By: #### L 100.0100, L501.5200, L500.4050, L502.0250, L501.9985, L500.4100 ####[facility] [id number] [place], [address] Cholesterol in HDL [Mass/Vol] 36 mg/dL Low [facility] Comment on above: Order Comment: Order Date: 06/19/24Order Info: [id number] - CMPOrder Info: [id number] - LIPIDOrder Info: [id number] - MG Result Comment: The drugs N-Acetylcysteine and Metamizole may falselydepress this assay. Reference Range HDL <40 mg/dL Low HDL Cholesterol HDL >or= 60 mg/dL High HDL Cholesterol Performed By: #### L 100.0100, L501.5200, L500.4050, L502.0250, L501.9985, L500.4100 ####[facility] [address] [place], [address] Cholesterol in LDL [Mass/Vol] 66 mg/dL Normal 0-130 [facility] [place] Comment on above: Order Comment: Order Date: 06/19/24Order Info: [id number] - CMPOrder Info: [id number] - LIPIDOrder Info: [id number] - MG Performed By: #### L 100.0100, L501.5200, L500.4050, L502.0250, L501.9985, L500.4100 ####[facility] [place] [address] [place], [address] Cholesterol in VLDL [Mass/Vol] 77 mg/dL High 5-40 [facility] [place] Comment on above: Order Comment: Order Date: 06/19/24Order Info: [id number] - CMPOrder Info: [id number] - LIPIDOrder Info: [id number] - MG Performed By: #### L 100.0100, L501.5200, L500.4050, L502.0250, L501.9985, L500.4100 ####[facility] [id number] [place], [place], [address] Triglyceride [Mass/Vol] 387 mg/dL High [facility] Comment on above: Order Comment: Order Date: 06/19/24Order Info: [id number] - CMPOrder Info: [id number] - LIPIDOrder Info: [id number] - MG Result Comment: The drugs N-Acetylcysteine and Metamizole may falselydepress this assay.Serum Triglycerides Reference Interval Normal <150 mg/dL Borderline high 150 - 199 mg/dL High 200 - 499 mg/dL Very High > or = 500 mg/dL Performed By: #### L 100.0100, L501.5200, L500.4050, L502.0250, L501.9985, L500.4100 ####[facility] [place] [id number] [facility] [address] [place], [place], [id number] Low density lipoprotein (LDL ) cholesterol measurementOrdered By: Bernabe Reese on 06-19-2024 Cholesterol in LDL [Mass/Vol] 66 mg/dL 0-130 [facility] Lymphocytes Auto (Unsp spec) [#/Vol]Ordered By: Bernabe eRese on 06-19-2024 Lymphocytes (Bld) [#/Vol] 2.24 10*3/uL 0.83-4.5 1 [facility] Lymphocytes/100 WBC Auto (Un sp spec)Ordered By: Bernabe Reese on 06-19-2024 Lymphocytes/100 WBC (Bld) 27.3 % 19-41 [facility] MCV (mean corpuscular volume ) determinationOrdered By: Bernabe Reese on 06-19-2024 MCV (RBC) [Entitic vol] 83.7 fL 80-94 [facility] Magnesiumon 06-19-2024 Magnesium [Mass/Vol] 1.7 mg/dL Normal 1.6-2.6 [facility] Comment on above: Order Comment: Order Date: 06/19/24Order Info: [id number] - CMPOrder Info: [id number] - LIPIDOrder Info: [id number] - MG Performed By: #### L 100.0100, L501.5200, L500.4050, L502.0250, L501.9985, L500.4100 ####[facility] [id number], [address] Magnesium measurementOrdered By: Bernabe Reese on 06-19-2024 Magnesium [Mass/Vol] 1.7 mg/dL 1.6-2.6 [facility] Mean corpuscular hemoglobin (MCH) determinationOrdered By: Bernabe Reese on 06-19-2024 MCH (RBC) [Entitic mass] 27.7 pg 27.0-32.0 [facility] Mean corpuscular hemoglobin concentration (MCHC) determinationOrdered By: Bernabe Reese on 06-19-2024 MCHC (RBC) [Mass/Vol] 33.1 g/dL 32-36 [facility] Mean platelet volume determi nationOrdered By: Bernabe Reese on 06-19-2024 Platelet mean volume (Bld) [Entitic vol] 10.6 fL 6.2-12.0 [facility] Microalb:Creat Ratio,Random URon 06-19-2024 Creatinine [Mass/Vol] 53.80 mg/dL Normal NO RANGE EST. [facility] Comment on above: Order Comment: Order Date: 06/19/24Order Info: [id number] - MIACRE Performed By: #### L 100.0100, L501.5200, L500.4050, L502.0250, L501.9985, L500.4100 ####[facility] [address] [place], [place], [id number] MALB:CRE 747.2 mg/g CRE High <30 mg/g CRE [facility] Comment on above: Order Comment: Order Date: 06/19/24Order Info: [id number] - MIACRE Performed By: #### L 100.0100, L501.5200, L500.4050, L502.0250, L501.9985, L500.4100 ####[facility] [place] [address] [place], [address] MICROALBUMIN,UR 402.0 mg/L Normal NO RANGE EST. [facility] Comment on above: Order Comment: Order Date: 06/19/24Order Info: [id number] - MIACRE Performed By: #### L 100.0100, L501.5200, L500.4050, L502.0250, L501.9985, L500.4100 ####[facility] [id number] [place], [address] Monocyte percentageOrdered B y: Bernabe Reese on 06-19-2024 Monocytes/100 WBC (Bld) 5.7 % 0-10 [facility] Neutrophil percentageOrdered By: Bernabe Reese on 06-19-2024 Neutrophils/100 WBC (Bld) 63.1 % 47-70 [facility] Nucleated red blood cell per centageOrdered By: Bernabe Reese on 06-19-2024 Nucleated RBC/100 WBC (Bld) [Ratio] 0 % 0-5 [facility] Platelet countOrdered By: Alona Reese on 06-19-2024 Platelets (Bld) [#/Vol] 206 10*3/uL 150-450 [facility] Potassium measurementOrdered By: Bernabe Reese on 06-19-2024 Potassium [Moles/Vol] 4.0 mmol/L 3.5-5.1 [facility] RBC Auto (Bld) [#/Vol]Ordere d By: Bernabe Reese on 06-19-2024 RBC (Bld) [#/Vol] 5.27 10*6/uL 4.6-6.2 [facility] Random urine microalbumin me asurementOrdered By: Bernabe Reese on 06-19-2024 Urine Random Microalbumin 402.0 mg/L NO RANGE E . [facility] Serum anion gap measurementO rdered By: Bernabe Reese on 06-19-2024 Anion gap [Moles/Vol] 8 mmol/L 5-15 [facility] Serum globulin measurementOr dered By: Bernabe Reese on 06-19-2024 Globulin (S) [Mass/Vol] 4.2 g/dL 2.2-4.2 [facility] Serum or plasma alanine herrmann otransferase (ALT) measurementOrdered By: Bernabe Reese on 06-19-2024 ALT [Catalytic activity/Vol] 29 U/L 16-61 [facility] Serum or plasma albumin everardo urement (mass/volume)Ordered By: Bernabe Reese on 06-19-2024 Albumin [Mass/Vol] 3.2 g/dL 3.2-5.0 [facility] Serum or plasma alkaline kaiser sphatase measurementOrdered By: Bernabe Reese on 06-19-2024 ALP [Catalytic activity/Vol] 136 U/L High 45-117 [facility] Serum or plasma calcium everardo urement (mass/volume)Ordered By: Bernabe Reese on 06-19-2024 Calcium [Mass/Vol] 9.3 mg/dL 8.5-10.1 [facility] Serum or plasma cholesterol measurement (mass/volume)Ordered By: Bernabe Reese on 06-19-2024 Cholesterol [Mass/Vol] 179 mg/dL <200 [facility] Comment on above: <200 mg/dL Desirable 200-240 mg/dL Borderline >240 mg/dL High Risk Serum or plasma creatinine m easurement (mass/volume)Ordered By: Bernabe Reese on 06-19-2024 Creatinine [Mass/Vol] 0.90 mg/dL 0.70-1.30 [facility] Comment on above: The validity of the calculated GFR & GFRAA in patients over 70 years has not been determined. Clinical correlation is essential. Serum or plasma urea nitroge n measurement (mass/volume)Ordered By: Bernabe Reese on 06-19-2024 Urea nitrogen [Mass/Vol] 15 mg/dL 7-18 [facility] Sodium levelOrdered By: Bernabe Reese on 06-19-2024 Sodium [Moles/Vol] 135 mmol/L Low 136-145 [facility] Total proteinOrdered By: Ruiz Reese on 06-19-2024 Protein [Mass/Vol] 7.4 g/dL 6.4-8.2 [facility] Triglycerides measurementOrd ered By: Bernabe Reese on 06-19-2024 Triglyceride [Mass/Vol] 387 mg/dL High <199 [facility] Comment on above: The drugs N-Acetylcy steine and Metamizole may falsely depress this assay.Serum Triglycerides Reference Interval Normal <150 mg/dL Borderline high 150 - 199 mg/dL High 200 - 499 mg/dL Very High > or = 500 mg/dL Urine albumin/creatinine rat io for detection of microalbuminuriaOrdered By: Bernabe Reese on 06-19-2024 Urine Microalbumin/Creatinine Ratio 747.2 mg/g CRE High <30 [facility] Urine creatinine measurement (mass/volume)Ordered By: Bernabe Reese on 06-19-2024 Creatinine (U) [Mass/Vol] 53.80 mg/dL NO RANGE EST. [facility] Very low density lipoprotein (VLDL) cholesterol measurementOrdered By: Bernabe Reese on 06-19-2024 VLDL Cholesterol 77 mg/dL High 5-40 [facility] White blood cell (WBC) count Ordered By: Bernabe Reese on 06-19-2024 WBC (Bld) [#/Vol] 8.2 10*3/uL 4.4-11.0 [facility] Absolute lymphocyte countOrd ered By: Bernabe Reese on 09-09-2023 Lymphocytes Auto (Unsp spec) [#/Vol] 2.04 10*3/uL 0.83-4.51 [facility] Automated lymphocyte count a s percentage of total leukocytesOrdered By: Bernabe Reese on 09-09-2023 Lymphocytes/100 WBC Auto (Unsp spec) 26.5 % 19-41 [facility] Basophil percentageOrdered B y: Bernabe Reese on 09-09-2023 Basophils/100 WBC (Bld) 0.9 % 0-1 [facility] Bilirubin [Mass/Vol] 0.60 mg/dL 0.20-1.00 [facility] Comment on above: For patients on eltr ombopag therapy, use of Dimension [place] TBIL is not recommended. Chloride [Moles/Vol] 100 mmol/L 98-107 [facility] Cholesterol [Mass/Vol] 158 mg/dL <200 [facility] Comment on above: <200 mg/dL Desirable 200-240 mg/dL Borderline >240 mg/dL High Risk Eosinophils/100 WBC (Bld) 3.6 % 0-5 [facility] Glucose [Mass/Vol] 303 mg/dL 74-106 [facility] Comment on above: Glucose result great er than or equal to 200 mg/dLsuggests DIABETES MELLITUS per A.D.A. criteria. Hemoglobin (Bld) [Mass/Vol] 13.4 g/dL 13.0-16.5 [facility] Monocytes/100 WBC (Bld) 7.4 % 0-10 [facility] Neutrophils (Bld) [#/Vol] 4.7 10*3/uL 2.0-7.7 [facility] Neutrophils/100 WBC (Bld) 61.1 % 47-70 [facility] Potassium [Moles/Vol] 4.3 mmol/L 3.5-5.1 [facility] Protein [Mass/Vol] 7.7 g/dL 6.4-8.2 [facility] Sodium [Moles/Vol] 134 mmol/L 136-145 [facility] Triglyceride [Mass/Vol] 179 mg/dL <199 [facility] Comment on above: The drugs N-Acetylcy steine and Metamizole may falsely depress this assay.Serum Triglycerides Reference Interval Normal <150 mg/dL Borderline high 150 - 199 mg/dL High 200 - 499 mg/dL Very High > or = 500 mg/dL WBC (Bld) [#/Vol] 7.7 10*3/uL 4.4-11.0 [facility] Determination of erythrocyte mean corpuscular volume (MCV)Ordered By: Bernabe Reese on 09-09-2023 MCV (RBC) [Entitic vol] 81.7 fL 80-94 [facility] Erythrocyte distribution wid th ratioOrdered By: Bernabe Reese on 09-09-2023 Erythrocyte distribution width (RBC) [Ratio] 14.6 % 11.6-14.6 [facility] Erythrocyte distribution wid th standard deviationOrdered By: Bernabe Reese on 09-09-2023 Erythrocyte distribution width (RBC) [Entitic vol] 42.5 fL 35.1-43.9 [facility] Hematocrit Auto (Bld) [Volum e fraction]Ordered By: Bernabe Reese on 09-09-2023 Hematocrit (Bld) [Volume fraction] 43.2 % 40-54 [facility] Immature granulocytes/100 WB C Auto (Bld)Ordered By: Bernabe Reese on 09-09-2023 Immature granulocytes/100 WBC (Bld) 0.500 % 0.0-0.9 [facility] Comment on above: IG% - Immature Granu locytes (promyelocytes, myelocytes and metamyelocytes) > 1% indicates that a LEFT SHIFT is Present. Laboratory - Chemistry and C hemistry - challengeOrdered By: Bernabe Reese on 09-09-2023 Albumin/Globulin [Mass ratio] 0.7 {ratio} 0.9-2.4 [facility] ALP [Catalytic activity/Vol] 91 U/L 45-117 [facility] ALT [Catalytic activity/Vol] 22 U/L 16-61 [facility] Cholesterol in HDL [Mass/Vol] 42 mg/dL >40 [facility] Comment on above: The drugs N-Acetylcy steine and Metamizole may falsely depress this assay. Reference Range HDL <40 mg/dL Low HDL Cholesterol HDL >or= 60 mg/dL High HDL Cholesterol Cholesterol in LDL [Mass/Vol] 80 mg/dL 0-130 [facility] CO2 [Moles/Vol] 26.0 mmol/L 21.0-32.0 [facility] Globulin (S) [Mass/Vol] 4.6 g/dL 2.2-4.2 [facility] Urea nitrogen/Creatinine [Mass ratio] 20.3 mg/mg 10-20 [facility] Laboratory - Hematology and Cell countsOrdered By: Bernabe Reese on 09-09-2023 MCH (RBC) [Entitic mass] 25.3 pg 27.0-32.0 [facility] MCHC (RBC) [Mass/Vol] 31.0 g/dL 32-36 [facility] Nucleated RBC/100 WBC (Bld) [Ratio] 0 % 0-5 [facility] Platelet mean volume (Bld) [Entitic vol] 10.8 fL 6.2-12.0 [facility] Platelets (Bld) [#/Vol] 204 10*3/uL 150-450 [facility] No Panel InformationOrdered By: Bernabe Reese on 09-09-2023 Estimated GFR (MDRD) Amer 110 mL/min >60 [facility] Comment on above: GFR Calc Estimated GFR (MDRD) Non-Af Amer 91 mL/min >60 [facility] Comment on above: Non- GFR Calc VLDL Cholesterol 36 mg/dL 5-40 [facility] RBC Auto (Bld) [#/Vol]Ordere d By: Bernabe Reese on 09-09-2023 RBC (Bld) [#/Vol] 5.29 10*6/uL 4.6-6.2 [facility] Serum or plasma calcium everardo urement (mass/volume)Ordered By: Bernabe Reese on 09-09-2023 Calcium [Mass/Vol] 9.2 mg/dL 8.5-10.1 [facility] Serum or plasma creatinine m easurement (mass/volume)Ordered By: Bernabe Reese on 09-09-2023 Creatinine [Mass/Vol] 0.88 mg/dL 0.70-1.30 [facility] Comment on above: The validity of the calculated GFR & GFRAA in patients over 70 years has not been determined. Clinical correlation is essential. Serum or plasma urea nitroge n measurement (mass/volume)Ordered By: Bernabe Reese on 09-09-2023 Urea nitrogen [Mass/Vol] 18 mg/dL 7-18 [facility] Thin prep Papanicolaou smear with manual screeningOrdered By: Bernabe Reese on 09-09-2023 Thin prep Papanicolaou smear with manual screening 3.1 g/dL 3.2-5.0 [facility] Thin prep Papanicolaou smear with manual screening 23 U/L 15-37 [facility] Thin prep Papanicolaou smear with manual screening 8 5-15 [facility] Whole blood hemoglobin A1c/t otal hemoglobin ratio (mass fraction)Ordered By: Bernabe Reese on 09-09-2023 HbA1c (Bld) [Mass fraction] 9.6 % 3.8-5.6 [facility] Comment on above: Normal < 5.7 % Predi abetic 5.7 - 6.4 % Diabetic >or= 6.5 % Please note range changes. Absolute lymphocyte countOrd ered By: Bernabe Reese on 07-11-2023 Lymphocytes Auto (Unsp spec) [#/Vol] 1.91 10*3/uL 0.83-4.51 [facility] Automated lymphocyte count a s percentage of total leukocytesOrdered By: Bernabe Reese on 07-11-2023 Lymphocytes/100 WBC Auto (Unsp spec) 24.9 % 19-41 [facility] Basophil percentageOrdered B y: Bernabe Reese on 07-11-2023 Basophil percentage 0 SEEN /hpf 0-5 [facility] Basophils/100 WBC (Bld) 0.7 % 0-1 [facility] Bilirubin [Mass/Vol] 0.40 mg/dL 0.20-1.00 [facility] Comment on above: For patients on eltr ombopag therapy, use of Dimension [place] TBIL is not recommended. Chloride [Moles/Vol] 105 mmol/L 98-107 [facility] Cholesterol [Mass/Vol] 172 mg/dL <200 [facility] Comment on above: <200 mg/dL Desirable 200-240 mg/dL Borderline >240 mg/dL High Risk Eosinophils/100 WBC (Bld) 2.6 % 0-5 [facility] Glucose [Mass/Vol] 224 mg/dL 74-106 [facility] Comment on above: Glucose result great er than or equal to 200 mg/dLsuggests DIABETES MELLITUS per A.D.A. criteria. Hemoglobin (Bld) [Mass/Vol] 12.3 g/dL 13.0-16.5 [facility] Monocytes/100 WBC (Bld) 6.5 % 0-10 [facility] Neutrophils (Bld) [#/Vol] 5.0 10*3/uL 2.0-7.7 [facility] Neutrophils/100 WBC (Bld) 65.0 % 47-70 [facility] Potassium [Moles/Vol] 3.7 mmol/L 3.5-5.1 [facility] Protein [Mass/Vol] 7.4 g/dL 6.4-8.2 [facility] Sodium [Moles/Vol] 141 mmol/L 136-145 [facility] Triglyceride [Mass/Vol] 182 mg/dL <199 [facility] Comment on above: The drugs N-Acetylcy steine and Metamizole may falsely depress this assay.Serum Triglycerides Reference Interval Normal <150 mg/dL Borderline high 150 - 199 mg/dL High 200 - 499 mg/dL Very High > or = 500 mg/dL WBC (Bld) [#/Vol] 7.7 10*3/uL 4.4-11.0 [facility] Bilirubin Test strip Ql (U)O rdered By: Bernabe Reese on 07-11-2023 Bilirubin Ql (U) Negative Negative [facility] Determination of erythrocyte mean corpuscular volume (MCV)Ordered By: Bernabe Reese on 07-11-2023 MCV (RBC) [Entitic vol] 82.7 fL 80-94 [facility] Erythrocyte distribution wid th ratioOrdered By: Bernabe Reese on 07-11-2023 Erythrocyte distribution width (RBC) [Ratio] 14.8 % 11.6-14.6 [facility] Erythrocyte distribution wid th standard deviationOrdered By: Bernabe Reese on 07-11-2023 Erythrocyte distribution width (RBC) [Entitic vol] 44.7 fL 35.1-43.9 [facility] Hematocrit Auto (Bld) [Volum e fraction]Ordered By: Bernabe Reese on 07-11-2023 Hematocrit (Bld) [Volume fraction] 39.3 % 40-54 [facility] Immature granulocytes/100 WB C Auto (Bld)Ordered By: Bernabe Reese on 07-11-2023 Immature granulocytes/100 WBC (Bld) 0.300 % 0.0-0.9 [facility] Comment on above: IG% - Immature Granu locytes (promyelocytes, myelocytes and metamyelocytes) > 1% indicates that a LEFT SHIFT is Present. Ketones Test strip Ql (U)Ord ered By: Bernabe Reese on 07-11-2023 Ketones Ql (U) Negative Negative [facility] Laboratory - Chemistry and C hemistry - challengeOrdered By: Bernabe Reese on 07-11-2023 Albumin/Creatinine DL <= 1.0 mg/L (24H U) [Ratio] 234.6 mg/g CRE <30 [facility] Albumin/Globulin [Mass ratio] 0.7 {ratio} 0.9-2.4 [facility] ALP [Catalytic activity/Vol] 89 U/L 45-117 [facility] ALT [Catalytic activity/Vol] 23 U/L 16-61 [facility] Cholesterol in HDL (Body fld) [Mass/Vol] 46 mg/dL >40 [facility] Comment on above: The drugs N-Acetylcy steine and Metamizole may falsely depress this assay. Reference Range HDL <40 mg/dL Low HDL Cholesterol HDL >or= 60 mg/dL High HDL Cholesterol Cholesterol in LDL (Body fld) [Moles/Vol] 90 mg/dL 0-130 [facility] Cholesterol in VLDL Calc [Moles/Vol] 36 mg/dL 5-40 [facility] CO2 [Moles/Vol] 29.0 mmol/L 21.0-32.0 [facility] Globulin (S) [Mass/Vol] 4.4 g/dL 2.2-4.2 [facility] Magnesium [Mass/Vol] 1.8 mg/dL 1.6-2.6 [facility] Urea nitrogen/Creatinine [Mass ratio] 14.8 mg/mg 10-20 [facility] Laboratory - Hematology and Cell countsOrdered By: Bernabe Reese on 07-11-2023 MCH (RBC) [Entitic mass] 25.9 pg 27.0-32.0 [facility] MCHC (RBC) [Mass/Vol] 31.3 g/dL 32-36 [facility] Nucleated RBC/100 WBC (Bld) [Ratio] 0 % 0-5 [facility] Platelets (Bld) [#/Vol] 180 10*3/uL 150-450 [facility] Mucus LM Ql (Urine sed)Order ed By: Bernabe Reese on 07-11-2023 Mucus Ql (Urine sed) 0 SEEN /hpf [facility] Nitrite Test strip Ql (U)Ord ered By: Bernabe Reese on 07-11-2023 Nitrite Ql (U) Negative Negative [facility] No Panel InformationOrdered By: Bernabe Reese on 07-11-2023 Estimated GFR (MDRD) Amer 121 mL/min >60 [facility] Comment on above: GFR Calc Estimated GFR (MDRD) Non-Af Amer 100 mL/min >60 [facility] Comment on above: Non- GFR Calc Urine RBC 0 SEEN /hpf 0-5 [facility] Platelet mean volume Oscar-Ec ker (Bld) [Entitic vol]Ordered By: Bernabe Reese on 07-11-2023 Platelet mean volume (Bld) [Entitic vol] 10.6 fL 6.2-12.0 [facility] Protein Test strip Ql (U)Ord ered By: Bernabe Reese on 07-11-2023 Protein Ql (U) 30 mg/dl Negative [facility] RBC Auto (Bld) [#/Vol]Ordere d By: Bernabe Reese on 07-11-2023 RBC (Bld) [#/Vol] 4.75 10*6/uL 4.6-6.2 [facility] Serum or plasma calcium everardo urement (mass/volume)Ordered By: Bernabe Reese on 07-11-2023 Calcium [Mass/Vol] 9.3 mg/dL 8.5-10.1 [facility] Serum or plasma creatinine m easurement (mass/volume)Ordered By: Bernabe Reese on 07-11-2023 Creatinine [Mass/Vol] 0.81 mg/dL 0.70-1.30 [facility] Comment on above: The validity of the calculated GFR & GFRAA in patients over 70 years has not been determined. Clinical correlation is essential. Serum or plasma thyroid stim ulating hormone (TSH) measurement (units/volume)Ordered By: Bernabe Reese on 07-11-2023 TSH Qn 1.12 uIU/mL 0.358-3.74 [facility] Serum or plasma urea nitroge n measurement (mass/volume)Ordered By: Bernabe Reese on 07-11-2023 Urea nitrogen [Mass/Vol] 12 mg/dL 7-18 [facility] Squamous epithelial cells de tection in urine sediment by light microscopyOrdered By: Bernabe Reese on 07-11-2023 Epithelial cells.squamous LM Ql (Urine sed) 0-5 SEEN /hpf 0-5 [facility] Thin prep Papanicolaou smear with manual screeningOrdered By: Bernabe Reese on 07-11-2023 Thin prep Papanicolaou smear with manual screening 3.0 g/dL 3.2-5.0 [facility] Thin prep Papanicolaou smear with manual screening 22 U/L 15-37 [facility] Thin prep Papanicolaou smear with manual screening 7 5-15 [facility] Thin prep Papanicolaou smear with manual screening 305.0 mg/L NO RANGE EST. [facility] Urine blood detectionOrdered By: Bernabe Reese on 07-11-2023 RBC Ql (U) 10 /ul Negative [facility] Urine clarityOrdered By: Ruiz Reese on 07-11-2023 Clarity (U) Clear Clear [facility] Urine color determinationOrd ered By: Bernabe Reese on 07-11-2023 Color (U) Yellow Yellow [facility] Urine creatinine measurement (mass/volume)Ordered By: Bernabe Reese on 07-11-2023 Creatinine (U) [Mass/Vol] 130.00 mg/dL NO RANGE EST. [facility] Urine glucose detectionOrder ed By: Bernabe Reese on 07-11-2023 Glucose Ql (U) 250 mg/dl Normal [facility] Urine leukocyte esterase det ection by dipstickOrdered By: Bernabe Reese on 07-11-2023 Leukocyte esterase Test strip Ql (U) Negative Negative [facility] Urine pHOrdered By: Bernabe mac on 07-11-2023 pH (U) 5.0 [pH] 5.0 - 8.0 [facility] Urine sediment bacteria coun t by microscopy (number/high power field)Ordered By: Bernabe eRese on 07-11-2023 Bacteria LM.HPF (Urine sed) [#/Area] 0 /[HPF] None Seen [facility] Urine specific gravity measu rementOrdered By: Bernabe Reese on 07-11-2023 Specific gravity (U) [Rel density] 1.025 1.002-1.030 [facility] Urine urobilinogen measureme ntOrdered By: Bernabe Reese on 07-11-2023 Urobilinogen Ql (U) Normal mg/dl Normal [facility] Whole blood hemoglobin A1c/t otal hemoglobin ratio (mass fraction)Ordered By: Bernabe Reese on 07-11-2023 HbA1c (Bld) [Mass fraction] 9.8 % 3.8-5.6 [facility] Comment on above: Normal < 5.7 % Predi abetic 5.7 - 6.4 % Diabetic >or= 6.5 % Please note range changes. Absolute lymphocyte countOrd ered By: Julee Spain on 05-23-2023 Lymphocytes Auto (Unsp spec) [#/Vol] 2.17 10*3/uL 0.83-4.51 [facility] Basophil percentageOrdered B y: Julee Spain on 05-23-2023 Basophils/100 WBC (Bld) 0.5 % 0-1 [facility] Chloride [Moles/Vol] 102 mmol/L 98-107 [facility] Eosinophils/100 WBC (Bld) 3.0 % 0-5 [facility] Glucose [Mass/Vol] 166 mg/dL 74-106 [facility] Comment on above: Fasting Glucose resu lt greater than or equal to 126 mg/dL suggests DIABETES MELLITUS per A.D.A. criteria. Neutrophils (Bld) [#/Vol] 6.8 10*3/uL 2.0-7.7 [facility] Neutrophils/100 WBC (Bld) 67.7 % 47-70 [facility] Potassium [Moles/Vol] 3.8 mmol/L 3.5-5.1 [facility] Sodium [Moles/Vol] 137 mmol/L 136-145 [facility] WBC (Bld) [#/Vol] 10.1 10*3/uL 4.4-11.0 [facility] Blood erythrocytes count (nu mber/volume)Ordered By: Julee Spain on 05-23-2023 RBC (Bld) [#/Vol] 4.82 10*6/uL 4.6-6.2 [facility] Blood hemoglobin measurement (mass/volume)Ordered By: Julee Spain on 05-23-2023 Hemoglobin (Bld) [Mass/Vol] 12.5 g/dL 13.0-16.5 [facility] Blood lymphocytes/100 leukoc ytesOrdered By: Julee Spain on 05-23-2023 Lymphocytes/100 WBC (Bld) 21.5 % 19-41 [facility] Blood monocytes/100 leukocyt esOrdered By: Julee Spain on 05-23-2023 Monocytes/100 WBC (Bld) 6.8 % 0-10 [facility] Blood platelet mean volumeOr dered By: Julee Spain on 05-23-2023 Platelet mean volume (Bld) [Entitic vol] 9.7 fL 6.2-12.0 [facility] Determination of erythrocyte mean corpuscular volume (MCV)Ordered By: Julee Spain on 05-23-2023 MCV (RBC) [Entitic vol] 84.0 fL 80-94 [facility] Glucose Glucometer (BldC) [M ass/Vol]Ordered By: Julee Spain on 05-23-2023 Glucose [Mass/Vol] 175 mg/dL 74-106 [facility] Comment on above: MANAGEMENT OF PATIEN T CARE PER NURSING PROTOCOL Hematocrit Auto (Bld) [Volum e fraction]Ordered By: Julee Spain on 05-23-2023 Hematocrit (Bld) [Volume fraction] 40.5 % 40-54 [facility] Laboratory - Chemistry and C hemistry - challengeOrdered By: Julee Spain on 05-23-2023 CO2 [Moles/Vol] 32.0 mmol/L 21.0-32.0 [facility] Urea nitrogen/Creatinine [Mass ratio] 24.5 mg/mg 10-20 [facility] Laboratory - Hematology and Cell countsOrdered By: Julee Spain on 05-23-2023 Erythrocyte distribution width (RBC) [Entitic vol] 42.7 fL 35.1-43.9 [facility] Erythrocyte distribution width (RBC) [Ratio] 14.1 % 11.6-14.6 [facility] Immature granulocytes/100 WBC (Bld) 0.500 % 0.0-0.9 [facility] Comment on above: IG% - Immature Granu locytes (promyelocytes, myelocytes and metamyelocytes) > 1% indicates that a LEFT SHIFT is Present. MCH (RBC) [Entitic mass] 25.9 pg 27.0-32.0 [facility] Nucleated RBC/100 WBC (Bld) [Ratio] 0 % 0-5 [facility] MCHC Auto (RBC) [Mass/Vol]Or dered By: Julee Spain on 05-23-2023 MCHC (RBC) [Mass/Vol] 30.9 g/dL 32-36 [facility] No Panel InformationOrdered By: Julee Spain on 05-23-2023 Estimated Creatinine Clearance Calc 83.41 ml/min [facility] Estimated GFR (MDRD) Amer 121 mL/min >60 [facility] Comment on above: GFR Calc Estimated GFR (MDRD) Non-Af Amer 100 mL/min >60 [facility] Comment on above: Non- GFR Calc Platelets bldOrdered By: Blanca Spain on 05-23-2023 Platelets (Bld) [#/Vol] 209 10*3/uL 150-450 [facility] Serum or plasma calcium everardo urement (mass/volume)Ordered By: Julee Spain on 05-23-2023 Calcium [Mass/Vol] 8.6 mg/dL 8.5-10.1 [facility] Serum or plasma creatinine m easurement (mass/volume)Ordered By: Julee Spain on 05-23-2023 Creatinine [Mass/Vol] 0.82 mg/dL 0.70-1.30 [facility] Comment on above: The validity of the calculated GFR & GFRAA in patients over 70 years has not been determined. Clinical correlation is essential. Serum or plasma urea nitroge n measurement (mass/volume)Ordered By: Julee Spain on 05-23-2023 Urea nitrogen [Mass/Vol] 20 mg/dL 7-18 [facility] Thin prep Papanicolaou smear with manual screeningOrdered By: Julee Spain on 05-23-2023 Thin prep Papanicolaou smear with manual screening 3 5-15 [facility] Assessment of wrist artery p atency prior to arterial punctureOrdered By: Julee Spain on 05-22-2023 Arterial patency Wrist artery --pre arterial puncture Positive [facility] Base excessOrdered By: Marilee Spain on 05-22-2023 Base excess Calc (BldV) [Moles/Vol] 3 mmol/L -2-2 [facility] Basophil percentageOrdered B y: Julee Spain on 05-22-2023 Basophil percentage 27.7 mmol/L 22- [facility] Basophils/100 WBC (Bld) 93 % 95-99 [facility] Basophil percentageOrdered B y: Haily Javier on 05-22-2023 Lactate [Moles/Vol] 1.1 mmol/L 0.4-2.0 [facility] CO2 (BldA) [Partial pressure ]Ordered By: Julee Spain on 05-22-2023 CO2 (Bld) [Partial pressure] 46.4 mm[Hg] 35-45 [facility] No Panel InformationOrdered By: Julee Spain on 05-22-2023 Blood Gas Sample Site L Radial [facility] Blood Gas Specimen Type ART [facility] Blood Gas Total CO2 29 mmol/L [facility] Blood Gas Vent Mode Not entered [facility] Oxygen Delivery Device Room Air [facility] Oxygen (BldA) [Partial press ure]Ordered By: Julee Spain on 05-22-2023 Oxygen (Bld) [Partial pressure] 68 mmHG 75-100 [facility] Serum or plasma trough vanco mycin levelOrdered By: Haily Javier on 05-22-2023 Vancomycin trough [Mass/Vol] 20.0 ug/mL 5.0-15.0 [facility] Comment on above: VANCOMYCIN STANDARED DRUG THERAPY TROUGH LEVEL: 5.0 - 15.0 mg/L VANCOMYCIN HIGH INTENSITY THERAPY TROUGH LEVEL: 15.0 - 20.0 mg/L High Intensity therapy recommended for serious lifethreatening infections include:- Qysowxvlcy-Trobdzclyedw-Ktbvbjhtf (Ventilator/Healtcare Associated)-Sepsis PLEASE CONTACT PHARMACY SERVICES (#1704) FOR INTERPRETATIONOF RESULTS. Whole blood hemoglobin A1c/t otal hemoglobin ratio (mass fraction)Ordered By: Haily Javier on 05-22-2023 HbA1c (Bld) [Mass fraction] 10.4 % 3.8-5.6 [facility] Comment on above: Normal < 5.7 % Predi abetic 5.7 - 6.4 % Diabetic >or= 6.5 % Please note range changes. pH measurementOrdered By: Opal Spain on 05-22-2023 pH (Unsp spec) 7.38 [pH] 7.35-7.45 [facility] Basophil percentageOrdered B y: Sourav Kim on 05-21-2023 Basophil percentage 0 SEEN /hpf 0-5 [facility] Bilirubin Test strip Ql (U)O rdered By: Sourav Kim on 05-21-2023 Bilirubin Ql (U) Negative Negative [facility] Culture, urineOrdered By: Alexandria Luevano on 05-21-2023 Bacteria identified Cx Nom (U) Positive [facility] Bacteria identified Cx Nom (U) Positive [facility] Influenza virus A and B and SARS-CoV-2 (COVID-19) Ag panel - Upper respiratory specimOrdered By: Sourav Kim on 05-21-2023 SARS-CoV-2 (COVID-19) RNA BILL+probe Ql (Resp) [facility] Ketones Test strip Ql (U)Ord ered By: Sourav Kim on 05-21-2023 Ketones Ql (U) 5 mg/dl Negative [facility] Laboratory - Chemistry and C hemistry - challengeOrdered By: Sourav Kim on 05-21-2023 Natriuretic peptide B (Bld) [Mass/Vol] 29.8 pg/mL 0-100 [facility] Laboratory - Microbiology an d Antimicrobial susceptibilityOrdered By: Sourav Kim on 05-21-2023 Bacteria identified Cx Nom (Bld) No growth in 5 days. [facility] Mucus LM Ql (Urine sed)Order ed By: Sourav Kim on 05-21-2023 Mucus Ql (Urine sed) 0 SEEN /hpf [facility] Nitrite Test strip Ql (U)Ord ered By: Sourav Kim on 05-21-2023 Nitrite Ql (U) Negative Negative [facility] No Panel InformationOrdered By: Sourav Kim on 05-21-2023 Troponin I High Sensitivity 10 pg/mL 3.0-78.0 [facility] Comment on above: Please Note: New [place] t Units and Gender Specific Reference Ranges. For more information see Policy Stat Procedure [place] High Sensitivity Troponin (TNIH) and attachments. Protein Test strip Ql (U)Ord ered By: Sourav Kim on 05-21-2023 Protein Ql (U) 30 mg/dl Negative [facility] Serum or plasma C reactive p rotein measurement (mass/volume)Ordered By: Haily Javier on 05-21-2023 CRP [Mass/Vol] 159.00 mg/L 0.0-3.0 [facility] Comment on above: C-Reactive Protein ( CRP) provides useful information for thediagnosis, therapy and monitoring of inflammatory processesand associated diseases. For the evaluation of Relative Riskfor Cardiovascular Disease, a High Sensitivity CRP (HSCRP)should be ordered. Squamous epithelial cells de tection in urine sediment by light microscopyOrdered By: Sourav Kim on 05-21-2023 Epithelial cells.squamous LM Ql (Urine sed) 0-5 SEEN /hpf 0-5 [facility] Upper respiratory specimen i nfluenza A virus, influenza B virus, and severe acute resOrdered By: Sourav Kim on 05-21-2023 Upper respiratory specimen influenza A virus, influenza B virus, and severe acute res [facility] Urine blood detectionOrdered By: Sourav Kim on 05-21-2023 RBC Ql (U) 10 /ul Negative [facility] RBC Ql (U) 0 SEEN /hpf 0-5 [facility] Urine clarityOrdered By: Jocelyn Kim on 05-21-2023 Clarity (U) Clear Clear [facility] Urine color determinationOrd ered By: Sourav Kim on 05-21-2023 Color (U) Yellow Yellow [facility] Urine glucose detectionOrder ed By: Sourav Kim on 05-21-2023 Glucose Ql (U) 1000 mg/dl Normal [facility] Urine leukocyte esterase det ection by dipstickOrdered By: Sourav Kim on 05-21-2023 Leukocyte esterase Test strip Ql (U) Negative Negative [facility] Urine pHOrdered By: Sourav yañez on 05-21-2023 pH (U) 5.0 [pH] 5.0 - 8.0 [facility] Urine sediment bacteria coun t by microscopy (number/high power field)Ordered By: Sourav Kim on 05-21-2023 Bacteria LM.HPF (Urine sed) [#/Area] RARE /hpf None Seen [facility] Urine sediment uric acid cry stal count by microscopy (number/high power field)Ordered By: Sourav Kim on 05-21-2023 Urate crystals LM.HPF (Urine sed) [#/Area] RARE /hpf [facility] Urine specific gravity measu rementOrdered By: Sourav Kim on 05-21-2023 Specific gravity (U) [Rel density] 1.020 1.002-1.030 [facility] Urobilinogen Auto test strip Ql (U)Ordered By: Sourav Kim on 05-21-2023 Urobilinogen Ql (U) Normal mg/dl Normal [facility] Absolute lymphocyte countOrd ered By: Bernabe Reese on 04-15-2023 Lymphocytes Auto (Unsp spec) [#/Vol] 2.21 10*3/uL 0.83-4.51 [facility] Basophil percentageOrdered B y: Bernabe Reese on 04-15-2023 Basophils/100 WBC (Bld) 0.7 % 0-1 [facility] Bilirubin [Mass/Vol] 0.30 mg/dL 0.20-1.00 [facility] Comment on above: For patients on eltr ombopag therapy, use of Dimension [place] TBIL is not recommended. Chloride [Moles/Vol] 102 mmol/L 98-107 [facility] Cholesterol [Mass/Vol] 127 mg/dL <200 [facility] Comment on above: <200 mg/dL Desirable 200-240 mg/dL Borderline >240 mg/dL High Risk Eosinophils/100 WBC (Bld) 2.1 % 0-5 [facility] Glucose [Mass/Vol] 322 mg/dL 74-106 [facility] Comment on above: Glucose result great er than or equal to 200 mg/dLsuggests DIABETES MELLITUS per A.D.A. criteria. Neutrophils (Bld) [#/Vol] 5.7 10*3/uL 2.0-7.7 [facility] Neutrophils/100 WBC (Bld) 65.4 % 47-70 [facility] Potassium [Moles/Vol] 4.6 mmol/L 3.5-5.1 [facility] Protein [Mass/Vol] 7.8 g/dL 6.4-8.2 [facility] Sodium [Moles/Vol] 137 mmol/L 136-145 [facility] Triglyceride [Mass/Vol] 283 mg/dL <199 [facility] Comment on above: The drugs N-Acetylcy steine and Metamizole may falsely depress this assay.Serum Triglycerides Reference Interval Normal <150 mg/dL Borderline high 150 - 199 mg/dL High 200 - 499 mg/dL Very High > or = 500 mg/dL WBC (Bld) [#/Vol] 8.7 10*3/uL 4.4-11.0 [facility] Blood erythrocytes count (nu mber/volume)Ordered By: Bernabe Reese on 04-15-2023 RBC (Bld) [#/Vol] 5.02 10*6/uL 4.6-6.2 [facility] Blood hemoglobin measurement (mass/volume)Ordered By: Bernabe Reese on 04-15-2023 Hemoglobin (Bld) [Mass/Vol] 13.0 g/dL 13.0-16.5 [facility] Blood lymphocytes/100 leukoc ytesOrdered By: Bernabe Reese on 04-15-2023 Lymphocytes/100 WBC (Bld) 25.3 % 19-41 [facility] Blood monocytes/100 leukocyt esOrdered By: Bernabe Reese on 04-15-2023 Monocytes/100 WBC (Bld) 6.2 % 0-10 [facility] Blood platelet mean volumeOr dered By: Bernabe Reese on 04-15-2023 Platelet mean volume (Bld) [Entitic vol] 10.3 fL 6.2-12.0 [facility] Determination of erythrocyte mean corpuscular volume (MCV)Ordered By: Bernabe Reese on 04-15-2023 MCV (RBC) [Entitic vol] 84.9 fL 80-94 [facility] Hematocrit Auto (Bld) [Volum e fraction]Ordered By: Bernabe Reese on 04-15-2023 Hematocrit (Bld) [Volume fraction] 42.6 % 40-54 [facility] Iron measurement (mass/mass) Ordered By: Bernabe Reese on 04-15-2023 Iron (Unsp spec) [Mass/Mass] 71 ug/dL 65-175 [facility] Laboratory - Chemistry and C hemistry - challengeOrdered By: Bernabe Reese on 04-15-2023 ALP [Catalytic activity/Vol] 82 U/L 45-117 [facility] ALT [Catalytic activity/Vol] 25 U/L 16-61 [facility] CO2 [Moles/Vol] 31.0 mmol/L 21.0-32.0 [facility] Globulin (S) [Mass/Vol] 4.6 g/dL 2.2-4.2 [facility] Magnesium [Mass/Vol] 2.0 mg/dL 1.6-2.6 [facility] Urea nitrogen/Creatinine [Mass ratio] 20.0 mg/mg 10-20 [facility] Laboratory - Hematology and Cell countsOrdered By: Bernabe Reese on 04-15-2023 Erythrocyte distribution width (RBC) [Entitic vol] 43.5 fL 35.1-43.9 [facility] Erythrocyte distribution width (RBC) [Ratio] 14.2 % 11.6-14.6 [facility] Immature granulocytes/100 WBC (Bld) 0.300 % 0.0-0.9 [facility] Comment on above: IG% - Immature Granu locytes (promyelocytes, myelocytes and metamyelocytes) > 1% indicates that a LEFT SHIFT is Present. MCH (RBC) [Entitic mass] 25.9 pg 27.0-32.0 [facility] Nucleated RBC/100 WBC (Bld) [Ratio] 0 % 0-5 [facility] MCHC Auto (RBC) [Mass/Vol]Or dered By: Bernabe Reese on 04-15-2023 MCHC (RBC) [Mass/Vol] 30.5 g/dL 32-36 [facility] No Panel InformationOrdered By: Bernabe Reese on 04-15-2023 Estimated GFR (MDRD) Amer 90 mL/min >60 [facility] Comment on above: GFR Calc Estimated GFR (MDRD) Non-Af Amer 75 mL/min >60 [facility] Comment on above: Non- GFR Calc Prostate Specific Antigen Screen 2.52 ng/mL 0.00-4.00 [facility] Comment on above: This test was perfor med using the TPSA assay method for the[facility]. Values obtained with differentassay methods cannot be used interchangably.When changing PSA assays in the course of monitoring apatient, additional sequential testing should be carriedout to confirm baseline values. Thyroid Stimulating Hormone (TSH) 1.07 uIU/mL 0.358-3.74 [facility] Total Iron Binding Capacity 368 ug/dL 250-450 [facility] Platelets bldOrdered By: Ruiz Reese on 04-15-2023 Platelets (Bld) [#/Vol] 218 10*3/uL 150-450 [facility] Serum or plasma albumin everardo urement (mass/volume)Ordered By: Bernabe Reese on 04-15-2023 Albumin [Mass/Vol] 3.2 g/dL 3.2-5.0 [facility] Serum or plasma albumin/glob ulin mass ratioOrdered By: Bernabe Reese on 04-15-2023 Albumin/Globulin [Mass ratio] 0.7 {ratio} 0.9-2.4 [facility] Serum or plasma calcium everardo urement (mass/volume)Ordered By: Bernabe Reese on 04-15-2023 Calcium [Mass/Vol] 9.8 mg/dL 8.5-10.1 [facility] Serum or plasma cholesterol in HDL measurement (mass/volume)Ordered By: Bernabe Reese on 04-15-2023 Cholesterol in HDL [Mass/Vol] 37 mg/dL >40 [facility] Comment on above: The drugs N-Acetylcy steine and Metamizole may falsely depress this assay. Reference Range HDL <40 mg/dL Low HDL Cholesterol HDL >or= 60 mg/dL High HDL Cholesterol Serum or plasma cholesterol in VLDL measurement (mass/volume)Ordered By: Bernabe Reese on 04-15-2023 Cholesterol in VLDL [Mass/Vol] 57 mg/dL 5-40 [facility] Serum or plasma creatinine m easurement (mass/volume)Ordered By: Bernabe Reese on 04-15-2023 Creatinine [Mass/Vol] 1.05 mg/dL 0.70-1.30 [facility] Comment on above: The validity of the calculated GFR & GFRAA in patients over 70 years has not been determined. Clinical correlation is essential. Serum or plasma ferritin hilda surement (mass/volume)Ordered By: Bernabe Reese on 04-15-2023 Ferritin [Mass/Vol] 33 ng/mL 26-388 [facility] Serum or plasma low density lipoprotein (LDL) cholesterol measurement (mass/volume)Ordered By: Bernabe Reese on 04-15-2023 Cholesterol in LDL [Mass/Vol] 33 mg/dL 0-130 [facility] Serum or plasma urea nitroge n measurement (mass/volume)Ordered By: Bernabe Reese on 04-15-2023 Urea nitrogen [Mass/Vol] 21 mg/dL 7-18 [facility] Thin prep Papanicolaou smear with manual screeningOrdered By: Bernabe Reese on 04-15-2023 Thin prep Papanicolaou smear with manual screening 20 U/L 15-37 [facility] Thin prep Papanicolaou smear with manual screening 4 5-15 [facility] Whole blood hemoglobin A1c/t otal hemoglobin ratio (mass fraction)Ordered By: Bernabe Reese on 04-15-2023 HbA1c (Bld) [Mass fraction] 10.2 % 3.8-5.6 [facility] Comment on above: Normal < 5.7 % Predi abetic 5.7 - 6.4 % Diabetic >or= 6.5 % Please note range changes. Absolute lymphocyte countOrd ered By: Dr. Zimmerman on 12-03-2022 Lymphocytes Auto (Unsp spec) [#/Vol] 1.91 10*3/uL 0.83-4.51 [facility] Basophil percentageOrdered B y: Dr. Zimmerman on 12-03-2022 Basophils/100 WBC (Bld) 0.6 % 0-1 [facility] Chloride [Moles/Vol] 104 mmol/L 98-107 [facility] Eosinophils/100 WBC (Bld) 2.2 % 0-5 [facility] Glucose [Mass/Vol] 193 mg/dL 74-106 [facility] Comment on above: Fasting Glucose resu lt greater than or equal to 126 mg/dL suggests DIABETES MELLITUS per A.D.A. criteria. Neutrophils (Bld) [#/Vol] 6.0 10*3/uL 2.0-7.7 [facility] Neutrophils/100 WBC (Bld) 66.9 % 47-70 [facility] Potassium [Moles/Vol] 4.0 mmol/L 3.5-5.1 [facility] Sodium [Moles/Vol] 139 mmol/L 136-145 [facility] WBC (Bld) [#/Vol] 9.0 10*3/uL 4.4-11.0 [facility] Blood erythrocytes count (nu mber/volume)Ordered By: Dr. Zimmerman on 12-03-2022 RBC (Bld) [#/Vol] 4.72 10*6/uL 4.6-6.2 [facility] Blood hemoglobin measurement (mass/volume)Ordered By: Dr. Zimmerman on 12-03-2022 Hemoglobin (Bld) [Mass/Vol] 13.0 g/dL 13.0-16.5 [facility] Blood lymphocytes/100 leukoc ytesOrdered By: Dr. Zimmerman on 12-03-2022 Lymphocytes/100 WBC (Bld) 21.3 % 19-41 [facility] Blood monocytes/100 leukocyt esOrdered By: Dr. Zimmerman on 12-03-2022 Monocytes/100 WBC (Bld) 7.9 % 0-10 [facility] Blood platelet mean volumeOr dered By: Dr. Zimmerman on 12-03-2022 Platelet mean volume (Bld) [Entitic vol] 10.1 fL 6.2-12.0 [facility] COVID-19 virus antigen assay Ordered By: Dr. Zimmerman on 12-03-2022 SARS-CoV-2 (COVID-19) Ag IA.rapid Ql (Resp) [facility] Determination of erythrocyte mean corpuscular volume (MCV)Ordered By: Dr. Zimmerman on 12-03-2022 MCV (RBC) [Entitic vol] 84.7 fL 80-94 [facility] Glucose Glucometer (BldC) [M ass/Vol]Ordered By: Dr. Zimmerman on 12-03-2022 Glucose [Mass/Vol] 218 mg/dL 74-106 [facility] Comment on above: MANAGEMENT OF PATIEN T CARE PER NURSING PROTOCOL Hematocrit Auto (Bld) [Volum e fraction]Ordered By: Dr. Zimmerman on 12-03-2022 Hematocrit (Bld) [Volume fraction] 40.0 % 40-54 [facility] Laboratory - Chemistry and C hemistry - challengeOrdered By: Dr. Zimmerman on 12-03-2022 CO2 [Moles/Vol] 29.0 mmol/L 21.0-32.0 [facility] Urea nitrogen/Creatinine [Mass ratio] 27.8 mg/mg 10-20 [facility] Laboratory - Hematology and Cell countsOrdered By: Dr. Zimmerman on 12-03-2022 Erythrocyte distribution width (RBC) [Entitic vol] 43.1 fL 35.1-43.9 [facility] Erythrocyte distribution width (RBC) [Ratio] 13.9 % 11.6-14.6 [facility] Immature granulocytes/100 WBC (Bld) 1.100 % 0.0-0.9 [facility] Comment on above: IG% - Immature Granu locytes (promyelocytes, myelocytes and metamyelocytes) > 1% indicates that a LEFT SHIFT is Present. MCH (RBC) [Entitic mass] 27.5 pg 27.0-32.0 [facility] Nucleated RBC/100 WBC (Bld) [Ratio] 0 % 0-5 [facility] MCHC Auto (RBC) [Mass/Vol]Or dered By: Dr. Zimmerman on 12-03-2022 MCHC (RBC) [Mass/Vol] 32.5 g/dL 32-36 [facility] No Panel InformationOrdered By: Dr. Zimmerman on 12-03-2022 Estimated Creatinine Clearance Calc 68.40 ml/min [facility] Estimated GFR (MDRD) Amer 169 mL/min >60 [facility] Comment on above: GFR Calc Estimated GFR (MDRD) Non-Af Amer 139 mL/min >60 [facility] Comment on above: Non- GFR Calc Platelets bldOrdered By: Dr. Zimmerman on 12-03-2022 Platelets (Bld) [#/Vol] 191 10*3/uL 150-450 [facility] Serum or plasma calcium everardo urement (mass/volume)Ordered By: Dr. Zimmerman on 12-03-2022 Calcium [Mass/Vol] 8.9 mg/dL 8.5-10.1 [facility] Serum or plasma creatinine m easurement (mass/volume)Ordered By: Dr. Zimmerman on 12-03-2022 Creatinine [Mass/Vol] 0.61 mg/dL 0.70-1.30 [facility] Comment on above: The validity of the calculated GFR & GFRAA in patients over 70 years has not been determined. Clinical correlation is essential. Serum or plasma urea nitroge n measurement (mass/volume)Ordered By: Dr. Zimmerman on 12-03-2022 Urea nitrogen [Mass/Vol] 17 mg/dL 7-18 [facility] Thin prep Papanicolaou smear with manual screeningOrdered By: Dr. Zimmerman on 12-03-2022 Thin prep Papanicolaou smear with manual screening 6 5-15 [facility] Laboratory - Microbiology an d Antimicrobial susceptibilityOrdered By: Dr. Bailey on 12-02-2022 Bacteria identified Cx Nom (Bld) Streptococcus agalactiae (B) [facility] Culture, urineOrdered By: Dr Evette Bailey on 12-01-2022 Bacteria identified Cx Nom (U) Streptococcus agalactiae (B) [facility] Bacteria identified Cx Nom (U) Presumptive C albicans [facility] Basophil percentageOrdered B y: Dr. Bailey on 11-28-2022 Lactate [Moles/Vol] 1.7 mmol/L 0.4-2.0 [facility] Basophil percentage >100 SEEN /hpf 0-5 [facility] Bilirubin [Mass/Vol] 1.10 mg/dL 0.20-1.00 [facility] Comment on above: For patients on eltr ombopag therapy, use of Dimension [place] TBIL is not recommended. Protein [Mass/Vol] 7.6 g/dL 6.4-8.2 [facility] Bilirubin Test strip Ql (U)O rdered By: Dr. Bailey on 11-28-2022 Bilirubin Ql (U) Negative Negative [facility] INR in Blood by Coagulation assayOrdered By: Dr. Bailey on 11-28-2022 INR Coag (Bld) [Relative time] 1.4 {INR} [facility] Ketones Test strip Ql (U)Ord ered By: Dr. Bailey on 11-28-2022 Ketones Ql (U) 150 mg/dl Negative [facility] Comment on above: CRITICAL VALUE *HCRI TICAL VALUE VERIFIED. CALLED TO ALONA CURTIS11/28/22 1201 Lupis Balbuena.RESULTS READ BACK BY SAME . Laboratory - Chemistry and C hemistry - challengeOrdered By: Dr. Bailey on 11-28-2022 ALP [Catalytic activity/Vol] 92 U/L 45-117 [facility] ALT [Catalytic activity/Vol] 26 U/L 16-61 [facility] CK [Catalytic activity/Vol] 544 U/L 39-308 [facility] Globulin (S) [Mass/Vol] 4.4 g/dL 2.2-4.2 [facility] Laboratory - CoagulationOrde red By: Dr. Bailey on 11-28-2022 aPTT Coag (Bld) [Time] 28.2 s 24.1-36.2 [facility] PT Coag (PPP) [Time] 17.1 s 11.7-14.9 [facility] Mucus LM Ql (Urine sed)Order ed By: Dr. Bailey on 11-28-2022 Mucus Ql (Urine sed) 0 SEEN /hpf [facility] Nitrite Test strip Ql (U)Ord ered By: Dr. Bailey on 11-28-2022 Nitrite Ql (U) Negative Negative [facility] No Panel InformationOrdered By: Dr. Zimmerman on 11-28-2022 Troponin I High Sensitivity 65 pg/mL 3.0-78.0 [facility] Comment on above: Please Note: New [place] t Units and Gender Specific Reference Ranges. For more information see Policy Stat Procedure [place] High Sensitivity Troponin (TNIH) and attachments. No Panel InformationOrdered By: Dr. Bailey on 11-28-2022 Ethyl Alcohol Level < 3.0 mg/dL [facility] Comment on above: The serum:whole bloo d ethanol ratio is approximately 1.14and varies slightly with hematocrit. Medical Alcohol reference interval and critical value innon-tolerant individuals; 50 - 100 Impairment 100 Intoxication 100 - 250 Severe Poisoning 250 - 400 Deep/possible fatal coma Protein Test strip Ql (U)Ord ered By: Dr. Bailey on 11-28-2022 Protein Ql (U) 100 mg/dl Negative [facility] Serum or plasma albumin everardo urement (mass/volume)Ordered By: Dr. Bailey on 11-28-2022 Albumin [Mass/Vol] 3.2 g/dL 3.2-5.0 [facility] Serum or plasma albumin/glob ulin mass ratioOrdered By: Dr. Bailey on 11-28-2022 Albumin/Globulin [Mass ratio] 0.7 {ratio} 0.9-2.4 [facility] Squamous epithelial cells de tection in urine sediment by light microscopyOrdered By: Dr. Bailey on 11-28-2022 Epithelial cells.squamous LM Ql (Urine sed) 0-5 SEEN /hpf 0-5 [facility] Thin prep Papanicolaou smear with manual screeningOrdered By: Dr. Bailey on 11-28-2022 Thin prep Papanicolaou smear with manual screening 38 U/L 15-37 [facility] Urine blood detectionOrdered By: Dr. Bailey on 11-28-2022 RBC Ql (U) 250 /ul Negative [facility] RBC Ql (U) 10-25 SEEN /hpf 0-5 [facility] Urine clarityOrdered By: Dr. Bailey on 11-28-2022 Clarity (U) Cloudy Clear [facility] Urine color determinationOrd ered By: Dr. Bailey on 11-28-2022 Color (U) Yellow Yellow [facility] Urine glucose detectionOrder ed By: Dr. Bailey on 11-28-2022 Glucose Ql (U) 1000 mg/dl Normal [facility] Urine leukocyte esterase det ection by dipstickOrdered By: Dr. Bailey on 11-28-2022 Leukocyte esterase Test strip Ql (U) 500 /ul Negative [facility] Urine pHOrdered By: Dr. Becca alcantara on 11-28-2022 pH (U) 5.0 [pH] 5.0 - 8.0 [facility] Urine sediment bacteria coun t by microscopy (number/high power field)Ordered By: Dr. Bailey on 11-28-2022 Bacteria LM.HPF (Urine sed) [#/Area] 3 /[HPF] None Seen [facility] Urine specific gravity measu rementOrdered By: Dr. Bailey on 11-28-2022 Specific gravity (U) [Rel density] 1.020 1.002-1.030 [facility] Urobilinogen Auto test strip Ql (U)Ordered By: Dr. Bailey on 11-28-2022 Urobilinogen Ql (U) Normal mg/dl Normal [facility] Absolute lymphocyte countOrd ered By: Dr. Reese on 10-22-2022 Lymphocytes Auto (Unsp spec) [#/Vol] 2.52 10*3/uL 0.83-4.51 [facility] Basophil percentageOrdered B y: Dr. Reese on 10-22-2022 Basophils/100 WBC (Bld) 0.6 % 0-1 [facility] Bilirubin [Mass/Vol] 0.50 mg/dL 0.20-1.00 [facility] Comment on above: For patients on eltr ombopag therapy, use of Dimension [place] TBIL is not recommended. Chloride [Moles/Vol] 98 mmol/L 98-107 [facility] Cholesterol [Mass/Vol] 170 mg/dL <200 [facility] Comment on above: <200 mg/dL Desirable 200-240 mg/dL Borderline >240 mg/dL High Risk Eosinophils/100 WBC (Bld) 2.5 % 0-5 [facility] Glucose [Mass/Vol] 244 mg/dL 74-106 [facility] Comment on above: Glucose result great er than or equal to 200 mg/dLsuggests DIABETES MELLITUS per A.D.A. criteria. Neutrophils (Bld) [#/Vol] 6.7 10*3/uL 2.0-7.7 [facility] Neutrophils/100 WBC (Bld) 65.8 % 47-70 [facility] Potassium [Moles/Vol] 4.4 mmol/L 3.5-5.1 [facility] Protein [Mass/Vol] 7.2 g/dL 6.4-8.2 [facility] Sodium [Moles/Vol] 136 mmol/L 136-145 [facility] Triglyceride [Mass/Vol] 221 mg/dL <199 [facility] Comment on above: The drugs N-Acetylcy steine and Metamizole may falsely depress this assay.Serum Triglycerides Reference Interval Normal <150 mg/dL Borderline high 150 - 199 mg/dL High 200 - 499 mg/dL Very High > or = 500 mg/dL WBC (Bld) [#/Vol] 10.1 10*3/uL 4.4-11.0 [facility] Blood erythrocytes count (nu mber/volume)Ordered By: Dr. Reese on 10-22-2022 RBC (Bld) [#/Vol] 5.32 10*6/uL 4.6-6.2 [facility] Blood hemoglobin measurement (mass/volume)Ordered By: Dr. Reese on 10-22-2022 Hemoglobin (Bld) [Mass/Vol] 14.5 g/dL 13.0-16.5 [facility] Blood lymphocytes/100 leukoc ytesOrdered By: Dr. Reese on 10-22-2022 Lymphocytes/100 WBC (Bld) 24.9 % 19-41 [facility] Blood monocytes/100 leukocyt esOrdered By: Dr. Reese on 10-22-2022 Monocytes/100 WBC (Bld) 5.9 % 0-10 [facility] Blood platelet mean volumeOr dered By: Dr. Reese on 10-22-2022 Platelet mean volume (Bld) [Entitic vol] 11.0 fL 6.2-12.0 [facility] Determination of erythrocyte mean corpuscular volume (MCV)Ordered By: Dr. Reese on 10-22-2022 MCV (RBC) [Entitic vol] 85.2 fL 80-94 [facility] Hematocrit Auto (Bld) [Volum e fraction]Ordered By: Dr. Reese on 10-22-2022 Hematocrit (Bld) [Volume fraction] 45.3 % 40-54 [facility] Iron measurement (mass/mass) Ordered By: Dr. Reese on 10-22-2022 Iron (Unsp spec) [Mass/Mass] 65 ug/dL 65-175 [facility] Laboratory - Chemistry and C hemistry - challengeOrdered By: Dr. Reese on 10-22-2022 ALP [Catalytic activity/Vol] 88 U/L 45-117 [facility] ALT [Catalytic activity/Vol] 36 U/L 16-61 [facility] CO2 [Moles/Vol] 30.0 mmol/L 21.0-32.0 [facility] Globulin (S) [Mass/Vol] 4.1 g/dL 2.2-4.2 [facility] Magnesium [Mass/Vol] 1.7 mg/dL 1.6-2.6 [facility] Urea nitrogen/Creatinine [Mass ratio] 19.2 mg/mg 10-20 [facility] Laboratory - Hematology and Cell countsOrdered By: Dr. Reese on 10-22-2022 Erythrocyte distribution width (RBC) [Entitic vol] 41.1 fL 35.1-43.9 [facility] Erythrocyte distribution width (RBC) [Ratio] 13.5 % 11.6-14.6 [facility] Immature granulocytes/100 WBC (Bld) 0.300 % 0.0-0.9 [facility] Comment on above: IG% - Immature Granu locytes (promyelocytes, myelocytes and metamyelocytes) > 1% indicates that a LEFT SHIFT is Present. MCH (RBC) [Entitic mass] 27.3 pg 27.0-32.0 [facility] Nucleated RBC/100 WBC (Bld) [Ratio] 0 % 0-5 [facility] MCHC Auto (RBC) [Mass/Vol]Or dered By: Dr. Reese on 10-22-2022 MCHC (RBC) [Mass/Vol] 32.0 g/dL 32-36 [facility] No Panel InformationOrdered By: Dr. Reese on 10-22-2022 Estimated GFR (MDRD) Amer 138 mL/min >60 [facility] Comment on above: GFR Calc Estimated GFR (MDRD) Non-Af Amer 114 mL/min >60 [facility] Comment on above: Non- GFR Calc Total Iron Binding Capacity 308 ug/dL 250-450 [facility] Urine Microalbumin/Creatinine Ratio 90.4 mg/g CRE <30 [facility] Platelets bldOrdered By: Dr. Reese on 10-22-2022 Platelets (Bld) [#/Vol] 193 10*3/uL 150-450 [facility] Serum or plasma albumin everardo urement (mass/volume)Ordered By: Dr. Reese on 10-22-2022 Albumin [Mass/Vol] 3.1 g/dL 3.2-5.0 [facility] Serum or plasma albumin/glob ulin mass ratioOrdered By: Dr. Reese on 10-22-2022 Albumin/Globulin [Mass ratio] 0.8 {ratio} 0.9-2.4 [facility] Serum or plasma calcium everardo urement (mass/volume)Ordered By: Dr. Reese on 10-22-2022 Calcium [Mass/Vol] 9.0 mg/dL 8.5-10.1 [facility] Serum or plasma cholesterol in HDL measurement (mass/volume)Ordered By: Dr. Reese on 10-22-2022 Cholesterol in HDL [Mass/Vol] 35 mg/dL >40 [facility] Comment on above: The drugs N-Acetylcy steine and Metamizole may falsely depress this assay. Reference Range HDL <40 mg/dL Low HDL Cholesterol HDL >or= 60 mg/dL High HDL Cholesterol Serum or plasma cholesterol in VLDL measurement (mass/volume)Ordered By: Dr. Reese on 10-22-2022 Cholesterol in VLDL [Mass/Vol] 44 mg/dL 5-40 [facility] Serum or plasma creatinine m easurement (mass/volume)Ordered By: Dr. Reese on 10-22-2022 Creatinine [Mass/Vol] 0.73 mg/dL 0.70-1.30 [facility] Comment on above: The validity of the calculated GFR & GFRAA in patients over 70 years has not been determined. Clinical correlation is essential. Serum or plasma ferritin hilda surement (mass/volume)Ordered By: Dr. Reese on 10-22-2022 Ferritin [Mass/Vol] 60 ng/mL 26-388 [facility] Serum or plasma low density lipoprotein (LDL) cholesterol measurement (mass/volume)Ordered By: Dr. Reese on 10-22-2022 Cholesterol in LDL [Mass/Vol] 91 mg/dL 0-130 [facility] Serum or plasma urea nitroge n measurement (mass/volume)Ordered By: Dr. Reese on 10-22-2022 Urea nitrogen [Mass/Vol] 14 mg/dL 7-18 [facility] Thin prep Papanicolaou smear with manual screeningOrdered By: Dr. Reese on 10-22-2022 Thin prep Papanicolaou smear with manual screening 30 U/L 15-37 [facility] Thin prep Papanicolaou smear with manual screening 8 5-15 [facility] Thin prep Papanicolaou smear with manual screening 91.3 mg/L NO RANGE EST. [facility] Urine creatinine measurement (mass/volume)Ordered By: Dr. Reese on 10-22-2022 Creatinine (U) [Mass/Vol] 101.00 mg/dL NO RANGE EST. [facility] Whole blood hemoglobin A1c/t otal hemoglobin ratio (mass fraction)Ordered By: Dr. Reese on 10-22-2022 HbA1c (Bld) [Mass fraction] 9.9 % 3.8-5.6 [facility] Comment on above: Normal < 5.7 % Predi abetic 5.7 - 6.4 % Diabetic >or= 6.5 % Please note range changes. Absolute lymphocyte countOrd ered By: Dr. Reese on 07-15-2022 Lymphocytes Auto (Unsp spec) [#/Vol] 2.42 10*3/uL 0.83-4.51 [facility] Basophil percentageOrdered B y: Dr. Reese on 07-15-2022 Basophils/100 WBC (Bld) 0.6 % 0-1 [facility] Bilirubin [Mass/Vol] 0.50 mg/dL 0.20-1.00 [facility] Comment on above: For patients on eltr ombopag therapy, use of Dimension [place] TBIL is not recommended. Chloride [Moles/Vol] 100 mmol/L 98-107 [facility] Cholesterol [Mass/Vol] 182 mg/dL <200 [facility] Comment on above: <200 mg/dL Desirable 200-240 mg/dL Borderline >240 mg/dL High Risk Eosinophils/100 WBC (Bld) 1.9 % 0-5 [facility] Glucose [Mass/Vol] 258 mg/dL 74-106 [facility] Comment on above: Glucose result great er than or equal to 200 mg/dLsuggests DIABETES MELLITUS per A.D.A. criteria. Neutrophils (Bld) [#/Vol] 5.3 10*3/uL 2.0-7.7 [facility] Neutrophils/100 WBC (Bld) 62.2 % 47-70 [facility] Potassium [Moles/Vol] 4.3 mmol/L 3.5-5.1 [facility] Protein [Mass/Vol] 6.9 g/dL 6.4-8.2 [facility] Sodium [Moles/Vol] 138 mmol/L 136-145 [facility] Triglyceride [Mass/Vol] 236 mg/dL <199 [facility] Comment on above: The drugs N-Acetylcy steine and Metamizole may falsely depress this assay.Serum Triglycerides Reference Interval Normal <150 mg/dL Borderline high 150 - 199 mg/dL High 200 - 499 mg/dL Very High > or = 500 mg/dL WBC (Bld) [#/Vol] 8.6 10*3/uL 4.4-11.0 [facility] Blood erythrocytes count (nu mber/volume)Ordered By: Dr. Reese on 07-15-2022 RBC (Bld) [#/Vol] 5.37 10*6/uL 4.6-6.2 [facility] Blood hemoglobin measurement (mass/volume)Ordered By: Dr. Reese on 07-15-2022 Hemoglobin (Bld) [Mass/Vol] 14.9 g/dL 13.0-16.5 [facility] Blood lymphocytes/100 leukoc ytesOrdered By: Dr. Reese on 07-15-2022 Lymphocytes/100 WBC (Bld) 28.2 % 19-41 [facility] Blood monocytes/100 leukocyt esOrdered By: Dr. Reese on 07-15-2022 Monocytes/100 WBC (Bld) 6.8 % 0-10 [facility] Blood platelet mean volumeOr dered By: Dr. Reese on 07-15-2022 Platelet mean volume (Bld) [Entitic vol] 10.7 fL 6.2-12.0 [facility] Determination of erythrocyte mean corpuscular volume (MCV)Ordered By: Dr. Reese on 07-15-2022 MCV (RBC) [Entitic vol] 83.8 fL 80-94 [facility] Hematocrit Auto (Bld) [Volum e fraction]Ordered By: Dr. Reese on 07-15-2022 Hematocrit (Bld) [Volume fraction] 45.0 % 40-54 [facility] Iron measurement (mass/mass) Ordered By: Dr. Reese on 07-15-2022 Iron (Unsp spec) [Mass/Mass] 60 ug/dL 65-175 [facility] Laboratory - Chemistry and C hemistry - challengeOrdered By: Dr. Reese on 07-15-2022 ALP [Catalytic activity/Vol] 100 U/L 45-117 [facility] ALT [Catalytic activity/Vol] 27 U/L 16-61 [facility] CO2 [Moles/Vol] 27.0 mmol/L 21.0-32.0 [facility] Globulin (S) [Mass/Vol] 3.8 g/dL 2.2-4.2 [facility] Magnesium [Mass/Vol] 1.7 mg/dL 1.6-2.6 [facility] Urea nitrogen/Creatinine [Mass ratio] 17.3 mg/mg 10-20 [facility] Laboratory - Hematology and Cell countsOrdered By: Dr. Reese on 07-15-2022 Erythrocyte distribution width (RBC) [Entitic vol] 43.1 fL 35.1-43.9 [facility] Erythrocyte distribution width (RBC) [Ratio] 14.4 % 11.6-14.6 [facility] Immature granulocytes/100 WBC (Bld) 0.300 % 0.0-0.9 [facility] Comment on above: IG% - Immature Granu locytes (promyelocytes, myelocytes and metamyelocytes) > 1% indicates that a LEFT SHIFT is Present. MCH (RBC) [Entitic mass] 27.7 pg 27.0-32.0 [facility] Nucleated RBC/100 WBC (Bld) [Ratio] 0 % 0-5 [facility] MCHC Auto (RBC) [Mass/Vol]Or dered By: Dr. Reese on 07-15-2022 MCHC (RBC) [Mass/Vol] 33.1 g/dL 32-36 [facility] No Panel InformationOrdered By: Dr. Reese on 07-15-2022 Estimated GFR (MDRD) Amer 133 mL/min >60 [facility] [facility] Comment on above: GFR Calc Estimated GFR (MDRD) Non-Af Amer 110 mL/min >60 [facility] Comment on above: Non- GFR Calc Thyroid Stimulating Hormone (TSH) 1.81 uIU/mL 0.358-3.74 [facility] Total Iron Binding Capacity 349 ug/dL 250-450 [facility] Platelets bldOrdered By: Dr. Reese on 07-15-2022 Platelets (Bld) [#/Vol] 181 10*3/uL 150-450 [facility] Serum or plasma albumin everardo urement (mass/volume)Ordered By: Dr. Reese on 07-15-2022 Albumin [Mass/Vol] 3.1 g/dL 3.2-5.0 [facility] Serum or plasma albumin/glob ulin mass ratioOrdered By: Dr. Reese on 07-15-2022 Albumin/Globulin [Mass ratio] 0.8 {ratio} 0.9-2.4 [facility] Serum or plasma calcium everardo urement (mass/volume)Ordered By: Dr. Reese on 07-15-2022 Calcium [Mass/Vol] 8.7 mg/dL 8.5-10.1 [facility] Serum or plasma cholesterol in HDL measurement (mass/volume)Ordered By: Dr. Reese on 07-15-2022 Cholesterol in HDL [Mass/Vol] 42 mg/dL >40 [facility] Comment on above: The drugs N-Acetylcy steine and Metamizole may falsely depress this assay. Reference Range HDL <40 mg/dL Low HDL Cholesterol HDL >or= 60 mg/dL High HDL Cholesterol Serum or plasma cholesterol in VLDL measurement (mass/volume)Ordered By: Dr. Reese on 07-15-2022 Cholesterol in VLDL [Mass/Vol] 47 mg/dL 5-40 [facility] Serum or plasma creatinine m easurement (mass/volume)Ordered By: Dr. Reese on 07-15-2022 Creatinine [Mass/Vol] 0.75 mg/dL 0.70-1.30 [facility] Comment on above: The validity of the calculated GFR & GFRAA in patients over 70 years has not been determined. Clinical correlation is essential. Serum or plasma ferritin hilda surement (mass/volume)Ordered By: Dr. Reese on 07-15-2022 Ferritin [Mass/Vol] 40 ng/mL 26-388 [facility] Serum or plasma low density lipoprotein (LDL) cholesterol measurement (mass/volume)Ordered By: Dr. Reese on 07-15-2022 Cholesterol in LDL [Mass/Vol] 93 mg/dL 0-130 [facility] Serum or plasma urea nitroge n measurement (mass/volume)Ordered By: Dr. Reese on 07-15-2022 Urea nitrogen [Mass/Vol] 13 mg/dL 7-18 [facility] Thin prep Papanicolaou smear with manual screeningOrdered By: Dr. Reese on 07-15-2022 Thin prep Papanicolaou smear with manual screening 18 U/L 15-37 [facility] Thin prep Papanicolaou smear with manual screening 11 5-15 [facility] Whole blood hemoglobin A1c/t otal hemoglobin ratio (mass fraction)Ordered By: Dr. Reese on 07-15-2022 HbA1c (Bld) [Mass fraction] 10.2 % 3.8-5.6 [facility] Comment on above: Normal < 5.7 % Predi abetic 5.7 - 6.4 % Diabetic >or= 6.5 % Please note range changes. Absolute lymphocyte counton 01-19-2022 Lymphocytes Auto (Unsp spec) [#/Vol] 2.55 10*3/uL 0.83-4.51 [facility] Work Phone: Basophil percentageon 2021 Basophils/100 WBC (Bld) 0.4 % 0-1 [facility] Work Phone: Bilirubin [Mass/Vol] 0.50 mg/dL 0.20-1.00 [facility] Work Phone: Comment on above: For patients on eltr ombopag therapy, use of Dimension [place] TBIL is not recommended. Chloride [Moles/Vol] 101 mmol/L 98-107 [facility] Work Phone: Cholesterol [Mass/Vol] 200 mg/dL <200 [facility] Work Phone: Comment on above: <200 mg/dL Desirable 200-240 mg/dL Borderline >240 mg/dL High Risk Eosinophils/100 WBC (Bld) 1.9 % 0-5 [facility] Work Phone: Glucose [Mass/Vol] 217 mg/dL 74-106 [facility] Work Phone: Comment on above: Glucose result great er than or equal to 200 mg/dLsuggests DIABETES MELLITUS per A.D.A. criteria. Neutrophils (Bld) [#/Vol] 5.2 10*3/uL 2.0-7.7 [facility] Work Phone: Neutrophils/100 WBC (Bld) 61.2 % 47-70 [facility] Work Phone: Potassium [Moles/Vol] 4.2 mmol/L 3.5-5.1 [facility] Work Phone: Protein [Mass/Vol] 7.6 g/dL 6.4-8.2 [facility] Work Phone: [phone] Sodium [Moles/Vol] 137 mmol/L 136-145 [facility] Work Phone: [phone] Triglyceride [Mass/Vol] 386 mg/dL <199 [facility] Work Phone: [phone] Comment on above: The drugs N-Acetylcy steine and Metamizole may falsely depress this assay.Serum Triglycerides Reference Interval Normal <150 mg/dL Borderline high 150 - 199 mg/dL High 200 - 499 mg/dL Very High > or = 500 mg/dL WBC (Bld) [#/Vol] 8.5 10*3/uL 4.4-11.0 [facility] Work Phone: [phone] Blood erythrocytes count (nu mber/volume)on 01-19-2022 RBC (Bld) [#/Vol] 5.14 10*6/uL 4.6-6.2 [facility] Work Phone: [phone] Blood hemoglobin measurement (mass/volume)on 01-19-2022 Hemoglobin (Bld) [Mass/Vol] 13.9 g/dL 13.0-16.5 [facility] Work Phone: Blood lymphocytes/100 leukoc yteson 01-19-2022 Lymphocytes/100 WBC (Bld) 30.0 % 19-41 [facility] Work Phone: [phone] Blood monocytes/100 leukocyt eson 01-19-2022 Monocytes/100 WBC (Bld) 6.1 % 0-10 [facility] Work Phone: [phone] Blood platelet mean volumeon 01-19-2022 Platelet mean volume (Bld) [Entitic vol] 10.8 fL 6.2-12.0 [facility] Work Phone: [phone] Determination of erythrocyte mean corpuscular volume (MCV)on 01-19-2022 MCV (RBC) [Entitic vol] 85.6 fL 80-94 [facility] Work Phone: [phone] Hematocrit Auto (Bld) [Volum e fraction]on 01-19-2022 Hematocrit (Bld) [Volume fraction] 44.0 % 40-54 [facility] Work Phone: [phone] Iron measurement (mass/mass) on 01-19-2022 Iron (Unsp spec) [Mass/Mass] 62 ug/dL 65-175 [facility] Work Phone: [phone] Laboratory - Chemistry and C hemistry - challengeon 01-19-2022 ALP [Catalytic activity/Vol] 83 U/L 45-117 [facility] Work Phone: [phone] ALT [Catalytic activity/Vol] 48 U/L 16-61 [facility] Work Phone: [phone] CO2 [Moles/Vol] 27.0 mmol/L 21.0-32.0 [facility] Work Phone: [phone] Globulin (S) [Mass/Vol] 4.3 g/dL 2.2-4.2 [facility] Work Phone: [phone] Magnesium [Mass/Vol] 1.8 mg/dL 1.6-2.6 [facility] Work Phone: [phone] Urea nitrogen/Creatinine [Mass ratio] 18.4 mg/mg 10-20 [facility] Work Phone: [phone] Laboratory - Hematology and Cell countson 01-19-2022 Erythrocyte distribution width (RBC) [Entitic vol] 43.0 fL 35.1-43.9 [facility] Work Phone: [phone] Erythrocyte distribution width (RBC) [Ratio] 14.0 % 11.6-14.6 [facility] Work Phone: [phone] Immature granulocytes/100 WBC (Bld) 0.400 % 0.0-0.9 [facility] Work Phone: [phone] Comment on above: IG% - Immature Granu locytes (promyelocytes, myelocytes and metamyelocytes) > 1% indicates that a LEFT SHIFT is Present. MCH (RBC) [Entitic mass] 27.0 pg 27.0-32.0 [facility] Work Phone: [phone] Nucleated RBC/100 WBC (Bld) [Ratio] 0 % 0-5 [facility] Work Phone: MCHC Auto (RBC) [Mass/Vol]on 01-19-2022 MCHC (RBC) [Mass/Vol] 31.6 g/dL 32-36 [facility] Work Phone: No Panel Informationon 01-19 Estimated GFR (MDRD) Amer 121 mL/min >60 [facility] Work Phone: Comment on above: GFR Calc Estimated GFR (MDRD) Non-Af Amer 100 mL/min >60 [facility] Work Phone: Comment on above: Non- GFR Calc Thyroid Stimulating Hormone (TSH) 1.09 uIU/mL 0.358-3.74 [facility] Work Phone: [phone] Total Iron Binding Capacity 351 ug/dL 250-450 [facility] Work Phone: Urine Microalbumin/Creatinine Ratio 281.7 mg/g CRE <30 [facility] Work Phone: Platelets bldon 01-19-2022 Platelets (Bld) [#/Vol] 207 10*3/uL 150-450 [facility] Work Phone: [phone] Serum or plasma albumin everardo urement (mass/volume)on 01-19-2022 Albumin [Mass/Vol] 3.3 g/dL 3.2-5.0 [facility] Work Phone: [phone] Serum or plasma albumin/glob ulin mass ratioon 01-19-2022 Albumin/Globulin [Mass ratio] 0.8 {ratio} 0.9-2.4 [facility] Work Phone: [phone] Serum or plasma calcium everardo urement (mass/volume)on 01-19-2022 Calcium [Mass/Vol] 9.3 mg/dL 8.5-10.1 [facility] Work Phone: [phone] Serum or plasma cholesterol in HDL measurement (mass/volume)on 01-19-2022 Cholesterol in HDL [Mass/Vol] 36 mg/dL >40 [facility] Work Phone: [phone] Comment on above: The drugs N-Acetylcy steine and Metamizole may falsely depress this assay. Reference Range HDL <40 mg/dL Low HDL Cholesterol HDL >or= 60 mg/dL High HDL Cholesterol Serum or plasma cholesterol in VLDL measurement (mass/volume)on 01-19-2022 Cholesterol in VLDL [Mass/Vol] 77 mg/dL 5-40 [facility] Work Phone: Serum or plasma creatinine m easurement (mass/volume)on 01-19-2022 Creatinine [Mass/Vol] 0.82 mg/dL 0.70-1.30 [facility] Work Phone: Comment on above: The validity of the calculated GFR & GFRAA in patients over 70 years has not been determined. Clinical correlation is essential. Serum or plasma ferritin hilda surement (mass/volume)on 01-19-2022 Ferritin [Mass/Vol] 41 ng/mL 26-388 [facility] Work Phone: Serum or plasma low density lipoprotein (LDL) cholesterol measurement (mass/volume)on 01-19-2022 Cholesterol in LDL [Mass/Vol] 87 mg/dL 0-130 [facility] Work Phone: Serum or plasma urea nitroge n measurement (mass/volume)on 01-19-2022 Urea nitrogen [Mass/Vol] 15 mg/dL 7-18 [facility] Work Phone: Thin prep Papanicolaou smear with manual screeningon 01-19-2022 Thin prep Papanicolaou smear with manual screening 54 U/L 15-37 [facility] Work Phone: [phone] Thin prep Papanicolaou smear with manual screening 9 5-15 [facility] Work Phone: Thin prep Papanicolaou smear with manual screening 293.0 mg/L NO RANGE EST. [facility] Work Phone: Urine creatinine measurement (mass/volume)on 01-19-2022 Creatinine (U) [Mass/Vol] 104.00 mg/dL NO RANGE EST. [facility] Work Phone: Whole blood hemoglobin A1c/t otal hemoglobin ratio (mass fraction)on 01-19-2022 HbA1c (Bld) [Mass fraction] 10.3 % 3.8-5.6 [facility] Work Phone: Comment on above: Normal < 5.7 % Predi abetic 5.7 - 6.4 % Diabetic >or= 6.5 % Please note range changes. Absolute lymphocyte counton 09-11-2021 Lymphocytes Auto (Unsp spec) [#/Vol] 2.41 10*3/uL 0.83-4.51 [facility] Work Phone: Basophil percentageon 2021 Basophils/100 WBC (Bld) 0.5 % 0-1 [facility] Work Phone: Bilirubin [Mass/Vol] 0.40 mg/dL 0.20-1.00 [facility] Work Phone: Comment on above: For patients on eltr ombopag therapy, use of Dimension [place] TBIL is not recommended. Chloride [Moles/Vol] 101 mmol/L 98-107 [facility] Work Phone: Cholesterol [Mass/Vol] 174 mg/dL <200 [facility] Work Phone: Comment on above: <200 mg/dL Desirable 200-240 mg/dL Borderline >240 mg/dL High Risk Eosinophils/100 WBC (Bld) 2.2 % 0-5 [facility] Work Phone: Glucose [Mass/Vol] 190 mg/dL 74-106 [facility] Work Phone: Comment on above: Fasting Glucose resu lt greater than or equal to 126 mg/dL suggests DIABETES MELLITUS per A.D.A. criteria. Neutrophils (Bld) [#/Vol] 4.2 10*3/uL 2.0-7.7 [facility] Work Phone: Neutrophils/100 WBC (Bld) 57.2 % 47-70 [facility] Work Phone: [phone] Potassium [Moles/Vol] 3.9 mmol/L 3.5-5.1 [facility] Work Phone: Protein [Mass/Vol] 7.4 g/dL 6.4-8.2 [facility] Work Phone: [phone] Sodium [Moles/Vol] 137 mmol/L 136-145 [facility] Work Phone: [phone] Triglyceride [Mass/Vol] 234 mg/dL [facility] Work Phone: [phone] Comment on above: The drugs N-Acetylcy steine and Metamizole may falsely depress this assay.Serum Triglycerides Reference Interval Normal <150 mg/dL Borderline high 150 - 199 mg/dL High 200 - 499 mg/dL Very High > or = 500 mg/dL WBC (Bld) [#/Vol] 7.3 10*3/uL 4.4-11.0 [facility] Work Phone: [phone] Blood erythrocytes count (nu mber/volume)on 09-11-2021 RBC (Bld) [#/Vol] 5.16 10*6/uL 4.6-6.2 [facility] Work Phone: [phone] Blood hemoglobin measurement (mass/volume)on 09-11-2021 Hemoglobin (Bld) [Mass/Vol] 14.2 g/dL 13.0-16.5 [facility] Work Phone: [phone] Blood lymphocytes/100 leukoc yteson 09-11-2021 Lymphocytes/100 WBC (Bld) 33.1 % 19-41 [facility] Work Phone: [phone] Blood monocytes/100 leukocyt eson 09-11-2021 Monocytes/100 WBC (Bld) 6.6 % 0-10 [facility] Work Phone: [phone] Blood platelet mean volumeon 09-11-2021 Platelet mean volume (Bld) [Entitic vol] 10.6 fL 6.2-12.0 [facility] Work Phone: [phone] Determination of erythrocyte mean corpuscular volume (MCV)on 09-11-2021 MCV (RBC) [Entitic vol] 83.9 fL 80-94 [facility] Work Phone: [phone] Hematocrit Auto (Bld) [Volum e fraction]on 09-11-2021 Hematocrit (Bld) [Volume fraction] 43.3 % 40-54 [facility] Work Phone: [phone] Iron measurement (mass/mass) on 09-11-2021 Iron (Unsp spec) [Mass/Mass] 62 ug/dL 65-175 [facility] Work Phone: [phone] Laboratory - Chemistry and C hemistry - challengeon 09-11-2021 ALP [Catalytic activity/Vol] 95 U/L 45-117 [facility] Work Phone: [phone] ALT [Catalytic activity/Vol] 29 U/L 16-61 [facility] Work Phone: [phone] CO2 [Moles/Vol] 29.0 mmol/L 21.0-32.0 [facility] Work Phone: [phone] Globulin (S) [Mass/Vol] 4.1 g/dL 2.2-4.2 [facility] Work Phone: [phone] Magnesium [Mass/Vol] 1.8 mg/dL 1.6-2.6 [facility] Work Phone: [phone] Urea nitrogen/Creatinine [Mass ratio] 25.8 mg/mg 10-20 [facility] Work Phone: [phone] Laboratory - Hematology and Cell countson 09-11-2021 Erythrocyte distribution width (RBC) [Entitic vol] 42.2 fL 35.1-43.9 [facility] Work Phone: [phone] Erythrocyte distribution width (RBC) [Ratio] 13.8 % 11.6-14.6 [facility] Work Phone: [phone] Immature granulocytes/100 WBC (Bld) 0.400 % 0.0-0.9 [facility] Work Phone: [phone] Comment on above: IG% - Immature Granu locytes (promyelocytes, myelocytes and metamyelocytes) > 1% indicates that a LEFT SHIFT is Present. MCH (RBC) [Entitic mass] 27.5 pg 27.0-32.0 [facility] Work Phone: [phone] Nucleated RBC/100 WBC (Bld) [Ratio] 0 % 0-5 [facility] Work Phone: MCHC Auto (RBC) [Mass/Vol]on 09-11-2021 MCHC (RBC) [Mass/Vol] 32.8 g/dL 32-36 [facility] Work Phone: No Panel Informationon 09-11 Estimated GFR (MDRD) Amer 155 mL/min >60 [facility] Work Phone: Comment on above: GFR Calc Estimated GFR (MDRD) Non-Af Amer 128 mL/min >60 [facility] Work Phone: Comment on above: Non- GFR Calc Platelets bldon 09-11-2021 Platelets (Bld) [#/Vol] 174 10*3/uL 150-450 [facility] Work Phone: Serum or plasma albumin everardo urement (mass/volume)on 09-11-2021 Albumin [Mass/Vol] 3.3 g/dL 3.2-5.0 [facility] Work Phone: Serum or plasma albumin/glob ulin mass ratioon 09-11-2021 Albumin/Globulin [Mass ratio] 0.8 {ratio} 0.9-2.4 [facility] Work Phone: Serum or plasma calcium everardo urement (mass/volume)on 09-11-2021 Calcium [Mass/Vol] 8.5 mg/dL 8.5-10.1 [facility] Work Phone: [phone] Serum or plasma cholesterol in HDL measurement (mass/volume)on 09-11-2021 Cholesterol in HDL [Mass/Vol] 39 mg/dL [facility] Work Phone: Comment on above: The drugs N-Acetylcy steine and Metamizole may falsely depress this assay. Reference Range HDL <40 mg/dL Low HDL Cholesterol HDL >or= 60 mg/dL High HDL Cholesterol Serum or plasma cholesterol in VLDL measurement (mass/volume)on 09-11-2021 Cholesterol in VLDL [Mass/Vol] 47 mg/dL 5-40 [facility] Work Phone: Serum or plasma creatinine m easurement (mass/volume)on 09-11-2021 Creatinine [Mass/Vol] 0.66 mg/dL 0.70-1.30 [facility] Work Phone: Comment on above: The validity of the calculated GFR & GFRAA in patients over 70 years has not been determined. Clinical correlation is essential. Serum or plasma ferritin hilda surement (mass/volume)on 09-11-2021 Ferritin [Mass/Vol] 28 ng/mL 26-388 [facility] Work Phone: Serum or plasma low density lipoprotein (LDL) cholesterol measurement (mass/volume)on 09-11-2021 Cholesterol in LDL [Mass/Vol] 88 mg/dL 0-130 [facility] Work Phone: Serum or plasma urea nitroge n measurement (mass/volume)on 09-11-2021 Urea nitrogen [Mass/Vol] 17 mg/dL 7-18 [facility] Work Phone: Thin prep Papanicolaou smear with manual screeningon 09-11-2021 Thin prep Papanicolaou smear with manual screening 23 U/L 15-37 [facility] Work Phone: Thin prep Papanicolaou smear with manual screening 7 5-15 [facility] Work Phone: Whole blood hemoglobin A1c/t otal hemoglobin ratio (mass fraction)on 09-11-2021 HbA1c (Bld) [Mass fraction] 9.5 % 3.8-5.6 [facility] Work Phone: Comment on above: Normal < 5.7 % Predi abetic 5.7 - 6.4 % Diabetic >or= 6.5 % Please note range changes. Brain Natri. Peptideon 02-10 Natriuretic peptide B mass conc (Bld) Normal [facility] Comment on above: Result Comment: Pro- BNP Reference Range:Rule Out: <300[place] Zone: Age <50 300-450 Age 50-75 300-900 Age >75 300-1800Usually represents mild to moderate HF but other cardiopulmonary causes cannot be ruled out.Rule In: Age <50 >450 Age 50-75 >900 Age >75 >1800 Performed By: #### C DP, BNP, CP, TROPI ####[place] [address] [facility] [place] [address] Natriuretic peptide B mass conc (Bld) 48 pg/mL Normal <300 [facility] Comment on above: Result Comment: Pro- BNP results cannot be compared to BNP results. Performed By: #### C DP, BNP, CP, TROPI ####[address] [place] [address] CBC with Diffon 02-10-2018 Abs. Basophil 0.00 k/uL Normal 0.0-0.2 [facility] Comment on above: Performed By: #### C DP, BNP, CP, TROPI ####[address] [place] [address] Abs.Neutrophil (Seg) 5.70 k/uL Normal 2.1-6.5 [facility] Comment on above: Performed By: #### C DP, BNP, CP, TROPI ####[address] [place] [address] Auto Diff Performed YES Normal [facility] Comment on above: Performed By: #### C DP, BNP, CP, TROPI ####[address] [place] [address] Basophils/100 WBC Auto (Bld) 0 % Normal 0-2 [facility] Comment on above: Performed By: #### C DP, BNP, CP, TROPI ####[address] [place] [address] Eosinophils Auto #/vol (Bld) 0.20 10*3/uL Normal 0.0-0.4 [facility] Comment on above: Performed By: #### C DP, BNP, CP, TROPI ####[address] [place] [address] Eosinophils/100 WBC Auto (Bld) 2 % Normal 0-5 [facility] Comment on above: Performed By: #### C DP, BNP, CP, TROPI ####[facility] [place] [address] Erythrocyte distribution width Auto Ratio (RBC) 14.9 % Normal 12.1-15.2 [facility] Comment on above: Performed By: #### C DP, BNP, CP, TROPI ####[place] [address] [place] [address] Hematocrit Auto Volume Fraction (Bld) 40.1 % Low 41-53 [facility] Comment on above: Performed By: #### C DP, BNP, CP, TROPI ####[place] [address] [place] [place] [address] Hemoglobin mass conc (Bld) 13.4 g/dL Low 13.5-17.5 [facility] Comment on above: Performed By: #### C DP, BNP, CP, TROPI ####[place] [address] [place] [place] [address] Lymphocytes Auto #/vol (Bld) 1.80 10*3/uL Normal 1.0-4.8 [facility] Comment on above: Performed By: #### C DP, BNP, CP, TROPI ####[place] [address] [place] [address] Lymphocytes/100 WBC Auto (Bld) 22 % Normal 13-44 [facility] Comment on above: Performed By: #### C DP, BNP, CP, TROPI ####[facility] [place] [address] MCH Auto Entitic mass (RBC) 28.0 pg Normal 26-34 [facility] Comment on above: Performed By: #### C DP, BNP, CP, TROPI ####[facility] [facility] [place] [place] [address] MCHC Auto mass conc (RBC) 33.3 g/dL Normal 31-37 [facility] Comment on above: Performed By: #### C DP, BNP, CP, TROPI ####[place] [address] [facility] [place] [place] [address] MCV Auto Entitic volume (RBC) 84.0 fL Normal 80-100 [facility] Comment on above: Performed By: #### C DP, BNP, CP, TROPI ####[address] [place] [address] Monocytes Auto #/vol (Bld) 0.50 10*3/uL Normal 0.0-1.0 [facility] Comment on above: Performed By: #### C DP, BNP, CP, TROPI ####[address] [place] [address] Monocytes/100 WBC Auto (Bld) 6 % Normal 5-9 [facility] Comment on above: Performed By: #### C DP, BNP, CP, TROPI ####[address] [place] [address] Neutrophil (Seg) 70 % Normal 39-75 [facility] Comment on above: Performed By: #### C DP, BNP, CP, TROPI ####[address] [place] [address] Platelets Auto #/vol (Bld) 223 10*3/uL Normal 140-450 [facility] Comment on above: Performed By: #### C DP, BNP, CP, TROPI ####[place] [address] [facility] [place] [place] [address] RBC Auto #/vol (Bld) 4.77 10*6/uL Normal 4.5-5.9 [facility] Comment on above: Performed By: #### C DP, BNP, CP, TROPI ####[facility] [place] [address] WBC Auto #/vol (Bld) 8.3 10*3/uL Normal 3.5-11.0 [facility] Comment on above: Performed By: #### C DP, BNP, CP, TROPI ####[place] [address] [place] [address] Abs.Imm.Granulocyte NOT REPORTED Normal 0.00-0.30 [facility] Comment on above: Performed By: #### C DP, BNP, CP, TROPI ####[address] [place] [address] Immature granulocytes #/vol (Bld) NOT REPORTED Normal 0 [facility] Comment on above: Performed By: #### C DP, BNP, CP, TROPI ####[address] [place] [address] NRBC Automated NOT REPORTED Normal [facility] Comment on above: Performed By: #### C DP, BNP, CP, TROPI ####[address] [place] [address] Platelet mean volume Auto Entitic volume (Bld) NOT REPORTED Normal 6.0-12.0 [facility] Comment on above: Performed By: #### C DP, BNP, CP, TROPI ####[place] [address] [facility] [place] [address] Platelets Auto #/vol (Bld) NOT REPORTED Normal [facility] Comment on above: Performed By: #### C DP, BNP, CP, TROPI ####[place] [address] [place] [address] RBC morphology finding Nom (Bld) NOT REPORTED Normal [facility] Comment on above: Performed By: #### C DP, BNP, CP, TROPI ####[place] [address] [facility] [place] [address] WBC Morphology NOT REPORTED Normal [facility] Comment on above: Performed By: #### C DP, BNP, CP, TROPI ####[address] [place] [address] Comp Metabolic Profon 2017 (cont.) Normal [facility] Comment on above: Result Comment: Aver age GFR for 60-69 years old: 85 mL/min/1.73sq mChronic Kidney Disease: <60 mL/min/1.73sq mKidney failure: <15 mL/min/1.73sq meGFR calculated using average adult body mass. Additional eGFR calculator available at:http://www.[employer]/multiple_crcl_2012.htm Performed By: #### C DP, BNP, CP, TROPI ####[place] [address] [facility] [place] [address] Albumin mass conc 3.6 g/dL Normal 3.5-5.2 [facility] Comment on above: Performed By: #### C DP, BNP, CP, TROPI ####[place] [address] [facility] [place] [address] Alkaline Phos 89 U/L Normal 40-129 [facility] Comment on above: Performed By: #### C DP, BNP, CP, TROPI ####[address] [place] [address] ALT enzyme act/vol 18 U/L Normal 5-41 [facility] Comment on above: Performed By: #### C DP, BNP, CP, TROPI ####[place] [address] [facility] [place] [address] Anion gap 3 molar conc 13 mmol/L Normal 9-17 [facility] Comment on above: Performed By: #### C DP, BNP, CP, TROPI ####[place] [address] [facility] [place] [address] AST enzyme act/vol 19 U/L Normal <40 [facility] Comment on above: Performed By: #### C DP, BNP, CP, TROPI ####[address] [place] [address] Bilirubin Ql (U) 0.36 mg/dL Normal 0.30-1.20 [facility] Comment on above: Performed By: #### C DP, BNP, CP, TROPI ####[address] [place] [address] BUN/CRE Ratio 19 Normal 9-20 [facility] Comment on above: Performed By: #### C DP, BNP, CP, TROPI ####[address] [place] [address] Calcium mass conc 9.8 mg/dL Normal 8.6-10.4 [facility] Comment on above: Performed By: #### C DP, BNP, CP, TROPI ####[address] [place] [address] Chloride molar conc 97 mmol/L Low 98-107 [facility] Comment on above: Performed By: #### C DP, BNP, CP, TROPI ####[address] [place] [address] CO2 molar conc 27 mmol/L Normal 20-31 [facility] Comment on above: Performed By: #### C DP, BNP, CP, TROPI ####[place] [address] [place] [address] Creatinine mass conc 0.67 mg/dL Low 0.70-1.20 [facility] Comment on above: Performed By: #### C DP, BNP, CP, TROPI ####[address] [place] [address] GFR, Amer >60 Normal >60 [facility] Comment on above: Performed By: #### C DP, BNP, CP, TROPI ####[facility] [place] [address] GFR,non Amer >60 Normal >60 [facility] Comment on above: Performed By: #### C DP, BNP, CP, TROPI ####[address] [id number] Glucose mass conc 152 mg/dL High 70-99 [facility] Comment on above: Performed By: #### C DP, BNP, CP, TROPI ####[place] [address] [id number] Potassium molar conc 3.9 mmol/L Normal 3.7-5.3 [facility] Comment on above: Performed By: #### C DP, BNP, CP, TROPI ####[address] [id number] Protein mass conc 6.8 g/dL Normal 6.4-8.3 [facility] Comment on above: Performed By: #### C DP, BNP, CP, TROPI ####[address] [place] [address] Sodium molar conc 137 mmol/L Normal 135-144 [facility] Comment on above: Performed By: #### C DP, BNP, CP, TROPI ####[address] [place] [address] Urea nitrogen mass conc 13 mg/dL Normal 8-23 [facility] Comment on above: Performed By: #### C DP, BNP, CP, TROPI ####[place] [address] [place] [address] Albumin/Globulin mass ratio NOT REPORTED Normal 1.0-2.5 [facility] Comment on above: Performed By: #### C DP, BNP, CP, TROPI ####[address] [place] [address] Staging: NOT REPORTED Normal [facility] Comment on above: Performed By: #### C DP, BNP, CP, TROPI ####[place] [address] [facility] [place] [address] ED Noteon 02-10-2018 HIM IP Note OR Pharmaceutical Compounding Supervisor Normal [facility] HIM IP Note OR Pharmaceutical Compounding Supervisor Normal [facility] HIM IP Note OR Pharmaceutical Compounding Supervisor Normal [facility] ED Provider Noteon 8 HIM IP Note OR Pharmaceutical Compounding Supervisor Normal [facility] Troponinon 02-10-2018 Troponin I.cardiac mass conc Normal [facility] Comment on above: Result Comment: [...] By: #### C DP, BNP, CP, TROPI ####[address] [place] [address] Troponin T.cardiac mass conc ug/L Normal <0.03 [facility] Comment on above: Result Comment: Trop onin T results cannot be compared to Troponin-I results. Performed By: #### C DP, BNP, CP, TROPI ####[address] [place] [address] Urinalysis, Routineon 2017 Acetaminophen mass conc Negative Normal NEG [facility] Comment on above: Performed By: #### U A ####[place] [address] [facility].[place] [phone] Bilirubin, SemiQt,Ur Negative Normal NEG [facility] Comment on above: Performed By: #### U A ####[facility] [place] [address] Color YELLOW Normal YEL [facility] Comment on above: Performed By: #### U A ####[facility] [address] Comment Normal [facility] Comment on above: Performed By: #### U A ####[facility] [place] [address] Glucose,Semi-qnt,Ur Negative Normal NEG [facility] Comment on above: Performed By: #### U A ####[facility] [place] [address] Hemoglobin, Ur Negative Normal NEG [facility] Comment on above: Performed By: #### U A ####[facility] [place] [address] Leuckocyte Esterase Negative Normal NEG [facility] Comment on above: Performed By: #### U A ####[facility] [place] [address] Nitrite,Ur Negative Normal NEG [facility] Comment on above: Performed By: #### U A ####[facility] [place] [address] PH,Ur 6.5 Normal 5.0-8.0 [facility] Comment on above: Performed By: #### U A ####[facility] [place] [address] Protein mass conc Negative Normal NEG [facility] Comment on above: Performed By: #### U A ####[facility] [place] [address] Spec. Severn,Ur 1.015 Normal 1.005-1.030 [facility] Comment on above: Performed By: #### U A ####[facility] [place] [address] Turbidity CLEAR Normal CLEAR [facility] Comment on above: Performed By: #### U A ####[facility] [place] [address] Urobilinogen,Ur Normal Normal NORM [facility] Comment on above: Performed By: #### U A ####[facility] [place] [address] BMPon 11-24-2017 Anion gap 6 mmol/L Normal 5-16 [facility] Comment on above: Performed By: #### L 500.96035, L500.35420, L500.65011 ####[facility] [id number] [place], [place] [address]Kz# [phone] BUN/Creatinine Ratio 20 mg/mg Normal 15-24 [facility] Comment on above: Performed By: #### L 500.38864, L500.69101, L500.88142 ####[facility] [id number] [place], [place] [address]Gp# [phone] Calcium 9.1 mg/dL Normal 8.5-10.1 [facility] Comment on above: Performed By: #### L 500.68592, L500.09793, L500.19612 ####[facility] [id number] [place], [place] [address]Qn# [phone] Chloride 104 mmol/L Normal 98-107 [facility] Comment on above: Performed By: #### L 500.05615, L500.27613, L500.58004 ####[facility] [id number] [place], [place] [address]Cr# [phone] CO2 29 mmol/L Normal 21-32 [facility] Comment on above: Performed By: #### L 500.52780, L500.00033, L500.49416 ####[facility] [id number] [place], [place] [address]Lg# [phone] Creatinine 0.612 mg/dL Low 0.670-1.170 [facility] Comment on above: Result Comment: Lelia ents receiving either N-Acetylcysteine (NAC) orMetamizole prior to venipuncture, may have falsely depressedresults. Performed By: #### L 500.22044, L500.63466, L500.60676 ####[facility] [id number] [place], [place] [address]Bx# [phone] Glucose mass conc 148 mg/dL High 70-100 [facility] Comment on above: Result Comment: 70-1 00- Normal Fasting; 100-125 Impaired Fasting; greaterthan 126 on more than one result- Diabetes. ADA guidelines.Results may be falsely elevated after the administration ofSulfapyridine.Results may be falsely depressed after the administration ofSulfasalazine. Performed By: #### L 500.94735, L500.63816, L500.53634 ####[facility] [id number] [place], [place] [address]Eu# [phone] Potassium molar conc 4.1 mmol/L Normal 3.5-5.1 [facility] Comment on above: Performed By: #### L 500.98609, L500.45472, L500.70616 ####[facility] [id number] [place], [place] [address]Xr# [phone] Sodium 139 mmol/L Normal 136-145 [facility] Comment on above: Performed By: #### L 500.77893, L500.50515, L500.64581 ####[facility] [id number] [place], [place] [address]Ur# [phone] Urea nitrogen 12 mg/dL Normal 7-26 [facility] Comment on above: Performed By: #### L 500.60152, L500.41370, L500.51051 ####[facility] [id number] [place], [place] [address]Qj# [phone] GFR ESTon 11-24-2017 IF AMER Greater than 60 Normal [facility] Comment on above: Performed By: #### L 500.10013, L500.28206, L500.78088 ####[facility] [id number] [place], [place] [address]Pc# [phone] IF non-AFR AMER Greater than 60 Normal [facility] Comment on above: Performed By: #### L 500.85531, L500.99098, L500.21429 ####[facility] [id number] [place], [place] [address]Dj# [phone] HGB A1C GLYCOHBon 11-24-2017 Hemoglobin A1c/Hemoglobin.total mass fraction (Bld) 6.0 % Normal 4.3-6.0 [facility] Comment on above: Performed By: #### L 550.87947 ####[facility] [id number] [place], [place] [address]Gr# [phone] LIPIDon 11-24-2017 Cholesterol 179 mg/dL Normal 0-199 [facility] Comment on above: Performed By: #### L 500.20484, L500.74238, L500.23500 ####[facility] [id number] [place], [place] [address]Xd# [phone] HDL Cholesterol 41 mg/dL Normal [place] 40 [facility] Comment on above: Result Comment: [place]elia ents receiving Metamizole prior to venipuncture, mayhave falsely depressed results. Performed By: #### L 500.95886, L500.30099, L500.14305 ####[facility] [id number] [place], [place] [address]On# [phone] LDL Cholesterol 105 MG/DL Normal 0-129 [facility] Comment on above: Result Comment: ___C HOLESTEROL/HDL RATIO RISK___ CHD RISK = Total CHOL LDL HDL (CHOL/HDL) Recommended <200 <130 >35 <3.4 ----Borderline 200-239 130-159 3.4-4.99 --------High >240 >160 >5.0 ---- Performed By: #### L 500.35094, L500.91544, L500.75360 ####[facility] [id number] [place], [place] [address]Mh# [phone] Triglyceride 165 mg/dL High 30-149 [facility] Comment on above: Result Comment: [place] ents receiving either N-Acetylcysteine (NAC) orMetamizole prior to venipuncture, may have falsely depressedresults. Performed By: #### L 500.66704, L500.66220, L500.55635 ####[facility] [id number] [place], [place] [address]Xk# [phone] Vital Signs Date Time Vital Sign Value Performing Clinician Sharri lei 03-20-2025 10:12-0400 Body temperature 96.6 [degF] Dr. Bernabe Reese MD Work Phone: [facility] 03-20-2025 10:12-0400 Diastolic blood pressure 56 mm[Hg] Dr. Bernabe Reese MD Work Phone: [facility] 03-20-2025 10:12-0400 Heart rate 71 /min Dr. Bernabe Reese MD Work Phone: [facility] 03-20-2025 10:12-0400 Respiratory rate 18 /min Dr. Bernabe Reese MD Work Phone: [facility] 03-20-2025 10:12-0400 Systolic blood pressure 121 mm[Hg] Dr. Bernabe Reese MD Work Phone: [facility] 03-06-2025 10:36-0400 Body temperature 97.3 [degF] Dr. Bernabe Reese MD Work Phone: 6(952)519-224224 [place] [address] 03-06-2025 10:36-0400 Diastolic blood pressure 64 mm[Hg] Dr. Bernabe Reese MD Work Phone: 4(758)187-802224 [place] [address] 03-06-2025 10:36-0400 Heart rate 86 /min Dr. Bernabe Reese MD Work Phone: [facility] 03-06-2025 10:36-0400 Respiratory rate 16 /min Dr. Bernabe Reese MD Work Phone: [facility] 03-06-2025 10:36-0400 Systolic blood pressure 115 mm[Hg] Dr. Bernabe Reese MD Work Phone: [facility] 02-13-2025 10:29-0400 Body temperature 96.8 [degF] Dr. Bernabe Reese MD Work Phone: [facility] 02-13-2025 10:29-0400 Diastolic blood pressure 63 mm[Hg] Dr. Bernabe Reese MD Work Phone: [facility] 02-13-2025 10:29-0400 Heart rate 70 /min Dr. Bernabe Reese MD Work Phone: [facility] 02-13-2025 10:29-0400 Respiratory rate 18 /min Dr. Bernabe Reese MD Work Phone: 0(167)067-727624 [place] [address] 02-13-2025 10:29-0400 Systolic blood pressure 116 mm[Hg] Dr. Bernabe Reese MD Work Phone: 9(359)004-251024 [place] [address] 01-16-2025 10:26-0400 Body mass index (BMI) [Ratio] 48.9 kg/m2 Dr. Bernabe Reese MD Work Phone: 2(820)225-179824 [place] [address] 01-16-2025 10:26-0400 Body temperature 97.1 [degF] Dr. Bernabe Reese MD Work Phone: 0(807)056-870824 [place] [address] 01-16-2025 10:26-0400 Diastolic blood pressure 55 mm[Hg] Dr. Bernabe Reese MD Work Phone: 6(644)414-628324 [place] [address] 01-16-2025 10:26-0400 Heart rate 73 /min Dr. Bernabe Reese MD Work Phone: 1(017)175-638924 [place] [address] 01-16-2025 10:26-0400 Respiratory rate 18 /min Dr. Bernabe Reese MD Work Phone: 0(955)003-452324 [place] [address] 01-16-2025 10:26-0400 Systolic blood pressure 108 mm[Hg] Dr. Bernabe Reese MD Work Phone: 8(999)470-688424 [place] [address] 12-18-2024 09:40-0400 Body height 172.[address] Bernabe Reese MD Work Phone: 5(856)774-175124 [place] [address] 12-18-2024 09:40-0400 Body weight 146.[address] Bernabe Reese MD Work Phone: 6(368)376-713524 [place] [address] 12-11-2024 10:06-0400 Body mass index (BMI) [Ratio] 55.2 kg/m2 Dr. Bernabe Reese MD Work Phone: 7(818)635-671924 [place] [address] 12-11-2024 10:06-0400 Body temperature 97.5 [degF] Dr. Bernabe Reese MD Work Phone: 8(443)895-922124 [place] [address] 12-11-2024 10:06-0400 Diastolic blood pressure 53 mm[Hg] Dr. Bernabe Reese MD Work Phone: [facility] 12-11-2024 10:06-0400 Heart rate 65 /min Dr. Bernabe Reese MD Work Phone: [facility] 12-11-2024 10:06-0400 Respiratory rate 18 /min Dr. Bernabe Reese MD Work Phone: 3(555)713-859106 [place] [address] 12-11-2024 10:06-0400 Systolic blood pressure 95 mm[Hg] Dr. Benrabe Reese MD Work Phone: 9(289)491-854833 [address] 12-04-2024 10:12-0400 Body mass index (BMI) [Ratio] 55.2 kg/m2 Dr. Bernabe Reese MD Work Phone: 1(317)669-427506 [place] [address] 12-04-2024 10:12-0400 Body temperature 96.5 [degF] Dr. Bernabe Reese MD Work Phone: 6(883)753-611406 [place] [address] 12-04-2024 10:12-0400 Diastolic blood pressure 70 mm[Hg] Dr. Bernabe Reese MD Work Phone: 3(392)545-781006 [place] [address] 12-04-2024 10:12-0400 Heart rate 70 /min Dr. Bernabe Reese MD Work Phone: 6(633)911-708606 [place] [address] 12-04-2024 10:12-0400 Respiratory rate 16 /min Dr. Bernabe Reese MD Work Phone: 8(345)770-745324 [place] [address] 12-04-2024 10:12-0400 Systolic blood pressure 141 mm[Hg] Dr. Bernabe Reese MD Work Phone: 4(434)239-032424 [place] [address] 11-18-2024 00:32-0400 Body weight 164.[address] Bernabe Reese MD Work Phone: 8(068)800-661306 [place] [address] 11-13-2024 10:23-0400 Body mass index (BMI) [Ratio] 55.2 kg/m2 Dr. Bernabe Reese MD Work Phone: 9(389)895-649933 [address] 11-13-2024 10:23-0400 Body temperature 96.2 [degF] Dr. Bernabe Reese MD Work Phone: [facility] 11-13-2024 10:23-0400 Diastolic blood pressure 67 mm[Hg] Dr. Bernabe Reese MD Work Phone: [facility] 11-13-2024 10:23-0400 Heart rate 69 /min Dr. Bernabe Reese MD Work Phone: [facility] 11-13-2024 10:23-0400 Respiratory rate 18 /min Dr. Bernabe Reese MD Work Phone: [facility] 11-13-2024 10:23-0400 Systolic blood pressure 127 mm[Hg] Dr. Bernabe Reese MD Work Phone: [facility] 10-30-2024 07:33-0400 Body temperature 98.01 [degF] Kevin Soriano MD Work Phone: [facility] 10-30-2024 07:33-0400 Diastolic blood pressure 71 mm[Hg] Kevin Soriano MD Work Phone: [facility] 10-30-2024 07:33-0400 Heart rate 66 /min Kevin Soriano MD Work Phone: [facility] 10-30-2024 07:33-0400 Respiratory rate 20 /min Kevin Soriano MD Work Phone: [facility] 10-30-2024 07:33-0400 SaO2% (BldA) [Mass fraction] 91 % Kevin Soriano MD Work Phone: [facility] 10-30-2024 07:33-0400 Systolic blood pressure 124 mm[Hg] Kevin Soriano MD Work Phone: [facility] 10-26-2024 09:00-0400 Body mass index (BMI) [Ratio] 54.34 kg/m2 Kevin Soriano MD Work Phone: [facility] 10-26-2024 09:00-0400 Body weight 166.92 kg Kevin Soriano MD Work Phone: [facility] 10-18-2024 00:21-0400 Body weight 164.[address] Bernabe Reese MD Work Phone: [facility] 10-16-2024 23:23-0400 Body height 175.3 cm Kevin Soriano MD Work Phone: [facility] 10-16-2024 18:30-0400 Diastolic blood pressure 85 mm[Hg] Dr. Bernabe Reese MD Work Phone: [facility] 10-16-2024 18:30-0400 Heart rate 85 /min Dr. Bernabe Reese MD Work Phone: [facility] 10-16-2024 18:30-0400 Systolic blood pressure 136 mm[Hg] Dr. Bernabe Reese MD Work Phone: [facility] 10-16-2024 18:00-0400 Inhaled oxygen flow rate 3 L/min Dr. Bernabe Reese MD Work Phone: [facility] 10-16-2024 18:00-0400 Respiratory rate 16 /min Dr. Bernabe Reese MD Work Phone: [facility] 10-16-2024 18:00-0400 SaO2% (BldA) [Mass fraction] 98 % Dr. Bernabe Reese MD Work Phone: [facility] 10-16-2024 17:00-0400 Body mass index (BMI) [Ratio] 52.7 kg/m2 Dr. Bernabe Reese MD Work Phone: [facility] 10-16-2024 15:45-0400 Body temperature 97.2 [degF] Dr. Bernabe Reese MD Work Phone: [facility] 10-15-2024 07:13-0400 Inhaled oxygen concentration 30 % Dr. Bernabe Reese MD Work Phone: [facility] 10-13-2024 14:34-0400 Body height 172.[address] Bernabe Reese MD Work Phone: [facility] 10-13-2024 14:34-0400 Body weight 157.[address] Bernabe Reese MD Work Phone: 9(157)311-483106 [place] [address] 2024 16:00-0400 Diastolic blood pressure 81 mm[Hg] Dr. Bernabe Reese MD Work Phone: 6(096)060-527233 [address] 2024 16:00-0400 Heart rate 93 /min Dr. Bernabe Reese MD Work Phone: 6(009)236-733506 [place] [address] 2024 16:00-0400 Respiratory rate 18 /min Dr. Bernabe Reese MD Work Phone: 9(267)007-153806 [place] [address] 2024 16:00-0400 SaO2% (BldA) [Mass fraction] 98 % Dr. Bernabe Reese MD Work Phone: 5(653)613-658906 [place] [address] 2024 16:00-0400 Systolic blood pressure 149 mm[Hg] Dr. Bernabe Reese MD Work Phone: 4(954)033-697206 [place] [address] 2024 15:17-0400 Body temperature 98.6 [degF] Dr. Bernabe Reese MD Work Phone: 6(249)186-484124 [place] [address] 2024 12:48-0400 Body mass index (BMI) [Ratio] 53.9 kg/m2 Dr. Bernabe Reese MD Work Phone: 5(320)275-142606 [place] [address] 2024 12:48-0400 Body weight [address] Bernabe Reese MD Work Phone: [phone] [place] [address] 2024 12:46-0400 Body height 172.[address] Bernabe Reese MD Work Phone: [phone] [place] [address] 2024 10:32-0400 Body mass index (BMI) [Ratio] 55.2 kg/m2 Dr. Bernabe Reese MD Work Phone: [facility] 2024 10:32-0400 Body temperature 97.6 [degF] Dr. Bernabe Reese MD Work Phone: [facility] 2024 10:32-0400 Diastolic blood pressure 71 mm[Hg] Dr. Bernabe Reese MD Work Phone: [facility] 2024 10:32-0400 Heart rate 80 /min Dr. Bernabe Reese MD Work Phone: [facility] 2024 10:32-0400 Respiratory rate 16 /min Dr. Bernabe Reese MD Work Phone: [phone])085-545724 [place] [address] 2024 10:32-0400 Systolic blood pressure 160 mm[Hg] Dr. Bernabe Reese MD Work Phone: [facility] 10-02-2024 10:19-0400 Body mass index (BMI) [Ratio] 55.2 kg/m2 Dr. Bernabe Reese MD Work Phone: [phone])[phone] [place] [address] 10-02-2024 10:19-0400 Body temperature 96.5 [degF] Dr. Bernabe Reese MD Work Phone: [facility] 10-02-2024 10:19-0400 Diastolic blood pressure 75 mm[Hg] Dr. Bernabe Reese MD Work Phone: [facility] 10-02-2024 10:19-0400 Heart rate 78 /min Dr. Bernabe Reese MD Work Phone: [facility] 10-02-2024 10:19-0400 Respiratory rate 14 /min Dr. Bernabe Reese MD Work Phone: [facility] 10-02-2024 10:19-0400 Systolic blood pressure 168 mm[Hg] Dr. Bernabe Reese MD Work Phone: [facility] 09-25-2024 09:42-0400 Body height 172.[address] Bernabe Reese MD Work Phone: [facility] 09-25-2024 09:42-0400 Body weight 164.[address] Bernabe Reese MD Work Phone: [facility] 07-11-2023 06:19-0500 Body height 172.[address] Bernabe Reese Work Phone: [facility] 07-11-2023 06:19-0500 Body mass index (BMI) [Ratio] 58.5 kg/m2 Dr. Bernabe Reese Work Phone: [facility] 07-11-2023 06:19-0500 Body temperature 97.7 [degF] Dr. Bernabe Reese Work Phone: [facility] 07-11-2023 06:19-0500 Body weight 174.[address] Bernabe Reese Work Phone: [facility] 07-11-2023 06:19-0500 Diastolic blood pressure 77 mm[Hg] Dr. Bernabe Reese Work Phone: [facility] 07-11-2023 06:19-0500 Heart rate 59 /min Dr. Bernabe Reese Work Phone: [facility] 07-11-2023 06:19-0500 Respiratory rate 18 /min Dr. Bernabe Reese Work Phone: [facility] 07-11-2023 06:19-0500 SaO2% (BldA) [Mass fraction] 96 % Dr. Bernabe Reese Work Phone: [facility] 07-11-2023 06:19-0500 Systolic blood pressure 138 mm[Hg] Dr. Bernabe Reese Work Phone: [facility] 05-23-2023 13:14-0500 Body height 172.[address] Bernabe Reese Work Phone: [facility] 05-23-2023 13:14-0500 Body weight 168.[address] Bernabe Reese Work Phone: [facility] 05-23-2023 10:30-0500 SaO2% (BldA) [Mass fraction] 91 % Dr. Bernabe Reese Work Phone: [facility] 05-23-2023 09:00-0500 Body temperature 98.2 [degF] Dr. Bernabe Reese Work Phone: [facility] 05-23-2023 09:00-0500 Diastolic blood pressure 61 mm[Hg] Dr. Bernabe Reese Work Phone: [facility] 05-23-2023 09:00-0500 Heart rate 84 /min Dr. Bernabe Reese Work Phone: [facility] 05-23-2023 09:00-0500 Respiratory rate 18 /min Dr. Bernabe Reese Work Phone: [facility] 05-23-2023 09:00-0500 Systolic blood pressure 131 mm[Hg] Dr. Bernabe Reese Work Phone: [facility] 05-23-2023 05:05-0500 Inhaled oxygen concentration 21 % Dr. Bernabe Reese Work Phone: [facility] 05-21-2023 18:05-0500 Body mass index (BMI) [Ratio] 56.5 kg/m2 Dr. Bernabe Reese Work Phone: [facility] 03-24-2023 10:57-0400 Body height 172.[address] Bernabe Reese Work Phone: [facility] 03-24-2023 10:57-0400 Body mass index (BMI) [Ratio] 58.6 kg/m2 Dr. Bernabe Reese Work Phone: [facility] 03-24-2023 10:57-0400 Body weight 174.[address] Bernabe Reese Work Phone: [facility] 03-24-2023 10:57-0400 Diastolic blood pressure 84 mm[Hg] Dr. Bernabe Reese Work Phone: [facility] 03-24-2023 10:57-0400 Heart rate 84 /min Dr. Bernabe Reese Work Phone: [facility] 03-24-2023 10:57-0400 Respiratory rate 18 /min Dr. Bernabe Reese Work Phone: [facility] 03-24-2023 10:57-0400 Systolic blood pressure 129 mm[Hg] Dr. Bernabe Reese Work Phone: [facility] 12-03-2022 10:42-0400 Body temperature 97.8 [degF] Dr. Bernabe Reese Work Phone: [facility] 12-03-2022 10:42-0400 Diastolic blood pressure 84 mm[Hg] Dr. Bernabe Reese Work Phone: [facility] 12-03-2022 10:42-0400 Heart rate 91 /min Dr. Bernabe Reese Work Phone: [facility] 12-03-2022 10:42-0400 Respiratory rate 18 /min Dr. Bernabe Reese Work Phone: [facility] 12-03-2022 10:42-0400 SaO2% (BldA) [Mass fraction] 94 % Dr. Bernabe Reese Work Phone: [facility] 12-03-2022 10:42-0400 Systolic blood pressure 119 mm[Hg] Dr. Bernabe Reese Work Phone: [facility] 12-03-2022 05:58-0400 Body mass index (BMI) [Ratio] 59.8 kg/m2 Dr. Bernabe Reese Work Phone: [facility] 12-03-2022 05:58-0400 Body weight 178.[address] Bernabe Reese Work Phone: [facility] 11-30-2022 09:36-0400 Inhaled oxygen flow rate 2 L/min Dr. Bernabe Reese Work Phone: [facility] 11-30-2022 06:58-0400 Inhaled oxygen concentration 30 % Dr. Bernabe Reese Work Phone: [facility] 11-29-2022 14:56-0400 Body height 172.[address] Bernabe Reese Work Phone: [facility] 11-28-2022 07:32-0400 Body temperature 97.9 [degF] Dr. Bernabe Reese Work Phone: [phone] [place] [address] 11-28-2022 07:32-0400 Diastolic blood pressure 84 mm[Hg] Dr. Bernabe Reese Work Phone: [phone] [address] 11-28-2022 07:32-0400 Heart rate 81 /min Dr. Bernabe Reese Work Phone: [phone] [address] 11-28-2022 07:32-0400 Respiratory rate 16 /min Dr. Bernabe Reese Work Phone: [phone] [address] 11-28-2022 07:32-0400 SaO2% (BldA) [Mass fraction] 98 % Dr. Bernabe Reese Work Phone: [phone] [address] 11-28-2022 07:32-0400 Systolic blood pressure 138 mm[Hg] Dr. Bernabe Reese Work Phone: [phone] [place] [address] 11-28-2022 04:28-0400 Body mass index (BMI) [Ratio] 60.2 kg/m2 Dr. Bernabe Reese Work Phone: [facility] 11-28-2022 04:28-0400 Body weight 179.[address] Bernabe Reese Work Phone: [phone] [place] [address] 09-27-2022 09:10-0400 Body height 172.[address] Bernabe Reese Work Phone: [facility] 09-27-2022 09:10-0400 Body mass index (BMI) [Ratio] 59.3 kg/m2 Dr. Bernabe Reese Work Phone: [phone] [place] [address] 09-27-2022 09:10-0400 Body weight 176.[address] Bernabe Reese Work Phone: [facility] 09-27-2022 09:10-0400 Diastolic blood pressure 78 mm[Hg] Dr. Bernabe Reese Work Phone: [facility] 09-27-2022 09:10-0400 Heart rate 80 /min Dr. Bernabe Reese Work Phone: [facility] 09-27-2022 09:10-0400 Respiratory rate 18 /min Dr. Bernabe Reese Work Phone: [facility] 09-27-2022 09:10-0400 Systolic blood pressure 130 mm[Hg] Dr. Bernabe Reese Work Phone: [facility] 03-12-2022 09:55-0400 Body height 172.[address] Bernabe Reese Work Phone: [facility] Work Phone: 03-12-2022 09:55-0400 Body mass index (BMI) [Ratio] 60 kg/m2 Dr. Bernabe Reese Work Phone: [facility] Work Phone: 03-12-2022 09:55-0400 Body weight 179.[address] Bernabe Reese Work Phone: [facility] Work Phone: 03-12-2022 09:55-0400 Diastolic blood pressure 84 mm[Hg] Dr. Bernabe Reese Work Phone: [facility] Work Phone: 03-12-2022 09:55-0400 Heart rate 82 /min Dr. Bernabe Reese Work Phone: [facility] Work Phone: 03-12-2022 09:55-0400 Respiratory rate 18 /min Dr. Bernabe Reese Work Phone: [facility] Work Phone: 03-12-2022 09:55-0400 Systolic blood pressure 138 mm[Hg] Dr. Bernabe Reese Work Phone: [facility] Work Phone: 03-09-2022 13:48-0400 Body mass index (BMI) [Ratio] 60.6 kg/m2 Dr. Bernabe Reese Work Phone: [facility] Work Phone: 03-09-2022 13:48-0400 Body temperature 98.3 [degF] Dr. Bernabe Reese Work Phone: [facility] Work Phone: 03-09-2022 13:48-0400 Body weight 180.[address] Bernabe Reese Work Phone: [facility] Work Phone: 03-09-2022 13:48-0400 Diastolic blood pressure 86 mm[Hg] Dr. Bernabe Reese Work Phone: [facility] Work Phone: 03-09-2022 13:48-0400 Heart rate 101 /min Dr. Bernabe Reese Work Phone: [facility] Work Phone: 03-09-2022 13:48-0400 Respiratory rate 16 /min Dr. Bernabe Reese Work Phone: [facility] Work Phone: 03-09-2022 13:48-0400 SaO2% (BldA) [Mass fraction] 94 % Dr. Bernabe Reese Work Phone: [facility] Work Phone: 03-09-2022 13:48-0400 Systolic blood pressure 165 mm[Hg] Dr. Bernabe Reese Work Phone: [facility] Work Phone: Encounters Encounter Date Encounter Type Care Provider Facility Start: 04-09-2025 End: 04-09-2025 ambulatory Bernabe Reese Facility:[facility] Start: 03-20-2025 End: 03-20-[address] León Cerda DPM -[facility] Work Phone: Start: 03-20-2025 End: 03-20-[address] Bernabe Reese MD Work Phone: [facility] Start: 03-12-2025 End: 03-12-2025 ambulatory STEF HUBBARD Facility:[facility] Start: 03-06-2025 End: 03-19-[address] Bernabe Reese MD Work Phone: -[facility] Start: 03-06-2025 End: 03-19-[address] León Cerda DPM -[facility] Work Phone: Start: 02-13-2025 End: 02-17-[address] Bernabe Reese MD Work Phone: -[facility] Start: 02-13-2025 End: 02-17-[address] León Cerda DPM -[facility] Work Phone: Start: 01-17-2025 End: 01-17-2025 Transcribe Orders Kelli Shea MD Work Phone: Referring Physician Comment on above: Difficulty urinating (Primary Dx) Start: 01-16-2025 End: 01-17-[address] Bernabe Reese MD Work Phone: -[facility] Start: 01-16-2025 End: 01-17-[address] León Cerda DPM -[facility] Work Phone: Start: 01-16-2025 End: 01-17-2025 Dr. León Cerda DPM [facility] Work Phone: Start: 01-15-2025 ambulatory Bernabe Reese Facilit y:[facility] Start: 01-15-[address] Kelli Shea MD [facility] Start: [facility]: 01-08-2025 End: 01-08-[address] Bernabe Reese MD Work Phone: [facility] Start: 01-08-2025 End: 01-08-[address] Kelli Shea MD [facility] Start: 01-08-[address] Kelli Shea MD [facility] Start: 01-08-2025 Dr. Kelli Shea MD [facility] Start: 01-08-2025 End: 01-08-2025 ambulatory Bernabe Reese Facility:[facility] Start: 01-01-2025 End: 01-01-[address] Bernabe Reese MD Work Phone: [facility] Start: 01-01-2025 End: 01-01-[address] Kelli Shea MD [facility] Start: 01-01-[address] Kelli Shea MD [facility] Start: 01-01-2025 Dr. Kelli Shea MD [facility] Start: 01-01-2025 End: 01-01-2025 ambulatory Bernabe Reese Facility:[facility] Start: 12-25-2024 Non-patient / Non-visit Dr. Canelo Cavazos MD -[facility] Start: 12-25-2024 Dr. Canelo Cavazos MD -[facility] Start: 12-18-2024 Non-patient / [facility] Start: 12-18-2024 End: 12-18-[address] Bernabe Reese MD Work Phone: [facility] Start: 12-18-2024 End: 12-18-[address] Kelli Shea MD [facility] Start: 12-18-[address] Kelli Shea MD -[facility] Start: 12-18-2024 Dr. Canelo Cavazos MD -[facility] Start: 12-18-2024 End: 12-18-2024 ambulatory Bernabe Reese Facility:[facility] Start: 12-11-2024 End: 12-17-[address] Bernabe Reese MD Work Phone: [facility] Start: 12-11-2024 End: 12-17-[address] Canelo Cavazos MD [facility] Work Phone: Start: 12-11-2024 End: 12-17-2024 Dr. Canelo Cavazos MD [facility] Work Phone: Start: 12-10-2024 ambulatory Bernabe Reese Facilit y:[facility] Start: 12-10-[address] Kelli Shea MD -[facility] Start: 12-10-2024 Dr. Kelli Shea MD -[facility] Start: 12-04-[address] Ramon vieira DPM -[facility] Work Phone: Start: 11-29-2024 End: 11-29-[address] Bernabe Reese MD Work Phone: [facility] Work Phone: Start: 11-29-2024 End: 11-29-2024 Patient encounter procedure Kelli Shea MD -[facility] Work Phone: Start: 11-29-2024 End: 11-29-2024 Kelli Shea MD -[facility] Work Phone: Start: 11-29-2024 End: 11-29-2024 ambulatory Bernabe Reese Facility:[facility] Start: 11-21-2024 ambulatory Bernabe Reese Facilit y:[facility] Start: 11-21-[address] Kelli Shea MD -[facility] Start: 11-21[facility]20[facility] Start: 11-14-2024 ambulatory Bernabe Reese Facilit y:[facility] Start: 11-14-[address] Kelli Shea MD [facility] Start: 11-14[facility] Start: 11-13-2024 End: 11-17-[address] Bernabe Reese MD Work Phone: [facility] Work Phone: Start: 11-13-2024 End: 11-17-[address] Ramon Garcia DPM -[facility] Work Phone: Start: 11-13-2024 End: 11-17-2024 Dr. Ramon Garcia DPM -W[facility] Work Phone: Start: 11-07-2024 ambulatory Kelli Husseini ty:[facility] Start: 11-07-[address] Kelli Shea MD [facility] Start: 11-07[facility] Start: 11-02-2024 ambulatory Bernabe Reese Facilit y:[facility] Start: 11-02-[address] Kelli Shea MD -[facility] Start: 11-02-2024 [facility] Start: 10-31-2024 ambulatory Bernabe Reese Facilit y:[facility] Start: 10-31-[address] Kelli Shea MD -[facility] Start: 10-31[facility]2024 [facility] Start: 10-16-2024 End: 10-16-2024 ambulatory UNKNOWN PROVIDER Facility:[facility] Start: 10-16-2024 End: 10-30-2024 Evaluation and management of inpatient Kevin Soriano MD Work Phone: [id number] Start: 10-16-2024 Non-patient / Non-visit Dr. Haily Javier [facility] Work Phone: Start: 10-16-2024 Dr. Haily Javier [facility] Work Phone: Start: 10-15-2024 Non-patient / Non-visit Dr. Haily Javier [facility] Work Phone: Start: 10-15-2024 Dr. Haily Javier [facility] Work Phone: Start: 10-14-2024 Non-patient / Non-visit Dr. Ozzy Cabrera [facility] Work Phone: Start: 10-14-2024 Dr. Ozzy Cabrera [facility] Work Phone: Start: 10-13-2024 Non-patient / Non-visit Dr. Ozzy Cabrera [facility] Work Phone: Start: 10-13-2024 Dr. Ozzy Cabrera [facility] Work Phone: Start: 10-12-2024 Non-patient / Non-visit Dr. Ozzy Cabrera [facility] Work Phone: Start: 10-12-2024 Dr. Ozzy Cabrera [facility] Work Phone: Start: 10-12-2024 ambulatory Ramon Garcia Facility :[facility] Start: 10-11-2024 Non-patient / Non-visit Dr. Ozzy Cabrera [facility] Work Phone: Start: 10-11-2024 Dr. Ozzy Cabrera [facility] Work Phone: Start: 10-11-2024 End: 10-11-2024 ambulatory Chetan Cowan [facility] Start: 10-11-2024 End: 10-11-2024 Non-patient / Non-visit Dr. Chetan Cowan MD -[facility] Work Phone: Start: 10-11-2024 End: 10-11-2024 Dr. Chetan Cowan MD -[facility] Work Phone: Start: 10-10-2024 Non-patient / Non-visit Dr. Ozzy Cabrera DO -[facility] Work Phone: Start: 10-10-2024 Dr. Ozzy Cabrera DO -[facility] Work Phone: Start: 2024 End: 10-16-2024 Dr. Haily Javier DO -Intensive Care Unit Work Phone: Start: 2024 ambulatory Albert Telles y:[facility] Start: 2024 End: 10-16-2024 Evaluation and management of inpatient Dr. Chula Antunez MD -Medical Surgical 3 Work Phone: Start: 2024 End: 10-17-2024 ambulatory Bernabe Reese Facility:[facility] Start: 2024 End: 10-17-[address] Ramon Garcia DPM -[facility] Work Phone: Start: [address] Ramon vieira DPJoyce -[facility] Work Phone: Start: 2024 End: 10-17-2024 Dr. Ramon Garcia DPM -Wound Healing [facility] Work Phone: Start: 10-02-[address] Ramon vieira DP[facility]ce -[facility] Work Phone: Start: 09-28-2024 End: 09-28-[address] Bernabe Reese MD Work Phone: [facility] Work Phone: Start: 09-28-2024 End: 09-28-[address] Ramon Garcia DPM -[facility] Work Phone: Start: 09-28-2024 End: 09-28-2024 Dr. Ramon Garcia DPM -Laboratory [facility] Work Phone: Start: 09-28-2024 End: 09-28-2024 ambulatory Bernabe Reese Facility:[facility] Start: 08-22-2024 End: 08-22-[address] Bernabe Reese MD Work Phone: [facility] Work Phone: Start: 08-22-2024 End: 08-22-[address] Ramon Garcia DPM -Laboratory, Specimen Work Phone: Start: 08-22-2024 End: 08-22-2024 Dr. Ramon Garcia DPM -Laboratory Speci men Work Phone: Start: 08-22-2024 End: 08-22-2024 ambulatory Bernabe Reese Facility:[facility] Start: 08-15-2024 ambulatory Bernabe Reese Facilit y:[facility] Start: 08-02-2024 End: 08-02-[address] Bernabe Reese MD -Laboratory, [facility] Start: 08-02-2024 End: 08-02-2024 ambulatory Bernabe Reese Facility:[facility] Start: 06-19-2024 End: 06-19-[address] [facility] Start: 06-19-2024 End: 06-19-2024 ambulatory Bernabe Reese Facility:[facility] Start: 09-09-2023 End: 09-09-[address] Bernabe Reese Work Phone: [facility] Work Phone: Start: 09-09-2023 End: 09-09-[address] [facility] Start: 07-11-2023 End: 07-11-[address] [facility] Start: 07-11-2023 End: 07-11-[address] Bernabe Reese Work Phone: [facility] Work Phone: Start: 05-23-2023 Non-patient / Non-visit Dr. Bernabe Reese Work Phone: [facility] Work Phone: Start: 05-22-2023 Non-patient / Non-visit Dr. Bernabe Reese Work Phone: [facility] Work Phone: Start: 05-21-2023 End: 05-23-2023 Evaluation and management of inpatient Dr. Bernabe Reese Work Phone: [facility]-Medical Surgical 3 Work Phone: Start: 04-15-2023 End: 04-15-[address] Bernabe Reese Work Phone: [facility] Work Phone: Start: 04-15-2023 End: 04-15-[address] Bernabe Reese Work Phone: [facility] Start: 03-24-2023 End: 03-24-[address] Bernabe Reese Work Phone: [facility] Work Phone: Start: 12-03-2022 Non-patient / Non-visit Dr. Bernabe Reese Work Phone: [facility] Start: 12-02-2022 Non-patient / Non-visit Dr. Bernabe Reese Work Phone: [facility] Start: 12-01-2022 Non-patient / Non-visit Dr. Bernabe Reese Work Phone: [facility] Start: 11-30-2022 Non-patient / Non-visit Dr. Bernabe Reese Work Phone: [facility] Start: 11-29-2022 Non-patient / Non-visit Dr. Bernabe Reese Work Phone: [facility] Start: 11-29-2022 Non-patient / Non-visit Dr. Bernabe Reese Work Phone: [facility] Start: 11-28-2022 End: 12-03-2022 Evaluation and management of inpatient Dr. Bernabe Reese Work Phone: [facility]-Progressive Care Unit Start: 11-28-2022 End: 11-28-2022 Emergency department patient visit Dr. Bernabe Reese Work Phone: [facility]-Emergency Department Start: 11-01-2022 End: 11-01-[address] Bernabe Reese Work Phone: [facility] Start: 10-22-2022 End: 10-22-[address] [facility] [facility] Work Phone: Start: 10-22-2022 End: 10-22-[address] Bernabe Reese Work Phone: [facility] Start: 09-27-2022 End: 09-27-[address] Bernabe Reese Work Phone: [facility] Start: 08-27-2022 Patient encounter procedure [facility] Provider [facility] Start: 07-15-2022 End: 07-15-2022 ambulatory [facility] Work Phone: Start: 07-15-2022 End: 07-15-2022 Patient encounter procedure [facility] Start: 06-16-2022 End: 06-16-[address] Bernabe Reese Work Phone: [facility] Work Phone: Start: 06-16-2022 End: 06-16-[address] Bernabe Reese Work Phone: [facility] Start: 03-12-2022 End: 03-12-[address] Bernabe Reese Work Phone: [facility] Start: 03-09-2022 End: 03-09-[address] Bernabe Reese Work Phone: [facility] Start: 01-19-2022 End: 01-19-2022 Patient encounter procedure [facility] Start: 10-26-2021 End: 10-26-2021 Patient encounter procedure [facility] Start: 09-11-2021 End: 09-11-2021 Patient encounter procedure [facility] Start: 02-10-2018 End: 02-10-2018 Emergency department patient visit [facility] Start: 11-24-2017 Ambulatory Dillan Telles y:[facility] Procedures Date Procedure Procedure Detail Performing Clinician Start: 01-15-2025 Mean corpuscular hemoglobin concentration determination Dr. Bernabe Reese MD Work Phone: Start: 01-15-2025 Platelet mean volume determination Dr. Bernabe Reese MD Work Phone: Start: 01-02-[address] Bernabe Reese MD Work Phone: Start: 01-02-2025 Gram stain microscopy D concha Reese MD Work Phone: Start: 01-02-2025 Microbial culture, routine Dr. Bernabe Reese MD Work Phone: Start: 01-01-2025 Mean corpuscular hemoglobin concentration determination Dr. Bernabe Reese MD Work Phone: Start: 01-01-2025 Platelet mean volume determination Dr. Bernabe Reese MD Work Phone: Start: 12-18-2024 Blood count smear mc rscp w/mnl difrntl wbc count Dr. Bernabe Reese MD Work Phone: Start: 12-18-2024 Mean corpuscular hemoglobin concentration determination Dr. Bernabe Reese MD Work Phone: Start: 12-18-2024 Nucleated red blood cell count procedure Dr. Bernabe Reees MD Work Phone: Start: 12-18-2024 Platelet mean volume determination Dr. Bernabe Reese MD Work Phone: Start: 12-10-2024 Blood count smear mc rscp [...] positive expiratory pressure (flutter) physiotherapy Francie Grier APRN-AERIAL SURVEY TECHNICIAN Work Phone: Start: 10-29-2024 Glucose measurement, blood Elizabeth Agosto MD Work Phone: Start: 10-29-2024 Glucose measurement, blood Elizabeth Agosto MD Work Phone: Start: 10-29-2024 Glucose measurement, blood Elizabeth Agosto MD Work Phone: Start: 10-29-2024 Glucose measurement, blood Elizabeth Agosto MD Work Phone: Start: 10-29-2024 Creatinine blood [facility] Work Phone: Start: 10-29-2024 Oscillating positive expiratory pressure (flutter) physiotherapy Francie Grier [facility] Work Phone: Start: 10-28-2024 Glucose measurement, [...] head/brain w/o co ntrast material Roz Alejandre [facility] Work Phone: Start: 10-26-2024 Oscillating positive expiratory pressure (flutter) physiotherapy Francie Grier [facility] Work Phone: Start: 10-25-2024 Glucose measurement, blood Elizabeth Agosto MD Work Phone: Start: 10-25-2024 Glucose measurement, blood Elizabeth Agosto MD Work Phone: Start: 10-25-2024 Glucose measurement, blood Elizabeth Agosto MD Work Phone: Start: 10-25-2024 Glucose measurement, blood Elizabeth Agosto MD Work Phone: Start: 10-25-2024 Glucose measurement, blood Elizabeth Agosto MD Work Phone: Start: 10-25-2024 Creatinine blood Braden Irby DO Work Phone: Start: 10-25-2024 Oscillating positive expiratory pressure (flutter) physiotherapy Francie Grier [facility] Work Phone: Start: 10-24-2024 Glucose measurement, blood Elizabeth Agosto MD Work Phone: Start: 10-24-2024 Creatinine blood Valerie barger S Megna [facility] Work Phone: Start: 10-24-2024 Radiologic exam ches t single view Cory S Megan [facility] Work Phone: Start: 10-24-2024 Glucose measurement, blood Elizabeth Agosto MD Work Phone: Start: 10-24-2024 Glucose measurement, blood Elizabeth Agosto MD Work Phone: Start: 10-24-2024 Glucose measurement, blood Elizabeth Agosto MD Work Phone: Start: 10-24-2024 Oscillating positive expiratory pressure (flutter) physiotherapy Francie Grier [facility] Work Phone: Start: 10-23-2024 Creatinine blood Braden Irby DO Work Phone: Start: 10-23-2024 Drug screen quantita tive vancomycin Dayami E Pressburger [facility] Start: 10-23-2024 Glucose measurement, blood Elizabeth Agosto MD Work Phone: Start: 10-23-2024 Glucose measurement, blood Elizabeth Agosto MD Work Phone: Start: 10-23-2024 Glucose measurement, blood Elizabeth Agosto MD Work Phone: Start: 10-23-2024 Glucose measurement, blood Elizabeth Agosto MD Work Phone: Start: 10-23-2024 Oscillating positive expiratory pressure (flutter) physiotherapy Francie Grier [facility] Work Phone: Start: 10-23-2024 Creatinine blood [...] positive expiratory pressure (flutter) physiotherapy Francie Grier [facility] Work Phone: Start: 10-22-2024 Calcium ionized Francie Grier [facility] Work Phone: Start: 10-21-2024 Drug screen quantita tive vancomycin Maryann Douglas [facility] Start: 10-21-2024 Glucose measurement, blood Dillan Guzman MD Work Phone: Start: 10-21-2024 Heparin assay [facility] Start: 10-21-2024 Mri brain brain stem w/o contrast material Trey Morse PA-C Work Phone: Start: 10-21-2024 Glucose measurement, blood Dillan Guzman MD Work Phone: Start: 10-21-2024 Radiologic exam ches t single view Keara D Dye [facility] Work Phone: Start: 10-21-2024 End: 10-21-2024 Glucose measurement, blood Dillan Guzman MD Work Phone: Start: 10-21-2024 Oscillating positive expiratory pressure (flutter) physiotherapy Francie Grier [facility] Work Phone: Start: 10-20-2024 End: 10-21-2024 Calcium ionized Francie Grier [facility] Work Phone: Start: 10-20-2024 Glucose measurement, blood Dillan Guzman MD Work Phone: Start: 10-20-2024 Glucose measurement, blood Dillan Guzman MD Work Phone: Start: 10-20-2024 Radiologic exam ches t single view Trey Morse PA-C Work Phone: Start: 10-20-2024 Glucose measurement, blood Dillan Guzman MD Work Phone: Start: 10-20-2024 Drug screen quantita tive vancomycin Maryann Misael [facility] Start: 10-20-2024 Glucose measurement, blood Dillan Guzman MD Work Phone: Start: 10-20-2024 Ct head/brain w/o co ntrast material Chiquita Humphrey PA-C Work Phone: Start: 10-20-2024 Oscillating positive expiratory pressure (flutter) physiotherapy Francie Pizarro Marvel [employer]-AERIAL SURVEY TECHNICIAN Work Phone: Start: 10-20-2024 Calcium ionized Francie Pizarro Marvel [employer]-AERIAL SURVEY TECHNICIAN Work Phone: Start: 10-19-2024 Glucose measurement, blood [...] expiratory pressure (flutter) physiotherapy Francie Pizarro Marvel [employer]-AERIAL SURVEY TECHNICIAN Work Phone: Start: 10-19-2024 Calcium ionized Francie Pizarro Marvel [employer]-AERIAL SURVEY TECHNICIAN Work Phone: Start: 10-18-2024 Glucose measurement, blood Dillan Guzman MD Work Phone: Start: 10-18-2024 Radex foot complete minimum 3 views Shweta Chan PA-C Work Phone: Start: 10-18-2024 Glucose measurement, blood Dillan Guzman MD Work Phone: Start: 10-18-2024 Drug screen quantita tive vancomycin Sangita Valenzuela [facility] Start: 10-18-2024 Blood count platelet automated Chiquita HYLTON-C Work Phone: Start: 10-18-2024 Glucose measurement, blood Dillan Guzman MD Work Phone: Start: 10-18-2024 Iadna s aureus ampli fied probe tq Amelia L Ciupak PA-C Start: 10-18-2024 Radiologic exam ches t single view Shweta Chan PA-C Work Phone: Start: 10-18-2024 Ct head/brain w/o co ntrast material Shweta Chan PA-C Work Phone: Start: 10-18-2024 Sodium serum plasma or whole blood Shweta Chan PA-C Work Phone: Start: 10-18-2024 Glucose measurement, blood Dillan Guzman MD Work Phone: Start: 10-18-2024 Gases blood ph direc t everardo xcpt pulse oximitry Jenn Redman DO Start: 10-18-2024 Electrolyte panel Victo roshni HYLTON-C Work Phone: Start: 10-18-2024 Oscillating positive expiratory pressure (flutter) physiotherapy Francie Grier [employer]ERIAL SURVEY TECHNICIAN Work Phone: Start: 10-18-2024 Physiotherapy of chest Francie Grier [employer]-AERIAL SURVEY TECHNICIAN Work Phone: Start: 10-18-2024 Glucose measurement, blood Dillan Guzman MD Work Phone: Start: 10-18-2024 Calcium ionized Francie Grier [employer]-AERIAL SURVEY TECHNICIAN Work Phone: Start: 10-17-2024 Glucose measurement, blood Dillan Guzman MD Work Phone: Start: 10-17-2024 Sodium serum plasma or whole blood Shweta HYLTON-C Work Phone: Start: 10-17-2024 Creatinine blood Kelli Pizarro Rocio PA-C Work Phone: Start: 10-17-2024 Electrolyte panel Victo roshni Mckenna Kam PA-C Work Phone: Start: 10-17-2024 Gases blood ph direc t everardo xcpt pulse oximitry Chiquita Mary Lou Kam PA-C Work Phone: Start: 10-17-2024 Radiologic exam ches t single view Chiquita Mary Lou Kam PA-C Work Phone: Start: 10-17-2024 Glucose measurement, blood Dillan Guzman MD Work Phone: Start: 10-17-2024 Transthoracic echocardiography Kristen Ramon MD Work Phone: Start: 10-17-2024 Glucose measurement, blood Dillan Guzman MD Work Phone: Start: 10-17-2024 Drug screen quantita tive vancomycin Miriam Denson MD Work Phone: Start: 10-17-2024 Ct head/brain w/o co ntrast material Miriam eDnson MD Work Phone: Start: 10-17-2024 EXTRA MICRO Francie dukes [employer] SURVEY TECHNICIAN Work Phone: Start: 10-17-2024 URINALYSIS REFLEX TO CULTURE Francie Lopezdean [employer]ERIAL SURVEY TECHNICIAN Work Phone: Start: 10-17-2024 Assay of lactate Francie Juarez Marvel [employer]-AERIAL SURVEY TECHNICIAN Work Phone: Start: 10-17-2024 End: 10-17-2024 Culture bacterial blood aerobic w/id isolates Francie Juarez Marvel [employer]-AERIAL SURVEY TECHNICIAN Work Phone: Start: 10-17-2024 Oscillating positive expiratory pressure (flutter) physiotherapy Francie Juarez Gadielhughdean [employer]-AERIAL SURVEY TECHNICIAN Work Phone: Start: 10-17-2024 Physiotherapy of chest Francie Grier [employer]-AERIAL SURVEY TECHNICIAN Work Phone: Start: 10-16-2024 Physiotherapy of chest Francie Grier [employer]-AERIAL SURVEY TECHNICIAN Work Phone: Start: 10-16-2024 Radiologic exam ches t single view Francie Grier [employer]-AERIAL SURVEY TECHNICIAN Work Phone: Start: 10-16-2024 Artl cathj/cannulj mntr/transfusion spx prq Francie Grier [employer]-AERIAL SURVEY TECHNICIAN Work Phone: Start: 10-16-2024 Glucose measurement, blood Dillan Guzman MD Work Phone: Start: 10-16-2024 Calcium ionized Francie Grier [employer]-AERIAL SURVEY TECHNICIAN Work Phone: Start: 10-16-2024 Lipid panel Francie dukes APRN-AERIAL SURVEY TECHNICIAN Work Phone: Start: 10-16-2024 Ecg routine ecg w/le ast 12 lds trcg only w/o i&r Francie Grier [employer]-AERIAL SURVEY TECHNICIAN Work Phone: Start: 10-16-2024 EXTRA MICRO Kristen Ramon MD Work Phone: Start: 10-16-2024 URINALYSIS REFLEX TO CULTURE Kristen Ramon MD Work Phone: Start: 10-16-2024 Urnls dip stick/tabl et reagent auto microscopy Kristen Ramon MD Work Phone: Start: 10-16-2024 ABORH TYPE RECONFIRMATION Cynthia Schmid DO Work Phone: Start: 10-16-2024 Ecg routine ecg w/le ast 12 lds trcg only w/o i&r Miraim Denson MD Work Phone: Start: 10-16-2024 End: 10-16-2024 Ct angiography head w/contrast/noncontrast Miriam Denson MD Work Phone: Start: 10-16-2024 Antibody screen DILLAN WANG Comment on above: Performed By: #### X M #### [facility] ([facility]) [address] [place] [address] Start: 10-16-2024 CBC AND ELECTRONIC DIFF Miriam [...] Work Phone: Start: 09-28-2024 Blood count smear rscp w/mnl difrntl wbc [...] med using the TPSA assay method for [employer] chemistry system. Values obtained with differentassay [...] dip stick/tabl et rgnt auto w/o [facility] Bacteria identified in Blood by Culture Dr. Bernabe Reese Work Phone: History of amputatio n of foot Dr. Bernabe Reese MD Work Phone: Comment on above: 2020 LEFT 5TH TOE History of amputatio n of foot Dr. 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 Bernabe subramanian Work Phone: Viral antigen assay Dr. Bernabe Reese Work Phone: Plan of Treatment Date Care Activity Detail Author Start: 10-16-2029 Lipid panel [facility] Start: 2029 RSV Vaccine (1 - 1-dose 75+ series) RSV Vaccine (1 - 1-dose 75+ series) [facility] Start: 10-29-2025 Finding of potassium level (finding) [facility] Start: 02-18-2025 Influenza vaccination [facility] Start: 11-06-2024 End: 10-28-2025 CT Head WO contrast [facility] Start: 10-16-2024 Patient discharge [facility] Start: 10-16-2024 Bedrest [facility] Start: 10-16-2024 Cardiac monitoring [facility] Start: 10-16-2024 Catheterization of vein [facility] Start: 10-16-2024 Elevation of head of bed [facility] Start: 10-16-2024 Exercises [facility] Start: 10-16-2024 Notification of physician [facility] Start: 10-16-2024 End: 10-16-2024 [facility] Start: 10-16-2024 Vital signs measurements [facility] Start: 10-16-2024 Continuous pulse oximetry [facility] Start: 10-16-2024 Oxygen therapy [facility] Start: 10-16-2024 End: 10-16-2024 Telemedicine consultation with patient [facility] Start: 10-16-2024 End: 10-16-2024 Tobacco use cessation education [facility] Start: 10-16-2024 [facility] Start: 10-12-2024 Consultation [facility] Start: 10-11-2024 Incentive spirometry [facility] Start: 10-11-2024 Referral to service [facility] Start: 10-11-2024 [facility] Start: 10-10-2024 [facility] Start: 10-10-2024 Wound care [facility] Start: 2024 Dual pressure spontaneous ventilation support [facility] Start: 2024 Application of intermittent pneumatic compression device [facility] Start: 2024 Assessment of risk of venous thromboembolism [facility] Start: 2024 Care regimes management [facility] Start: 2024 Consultation for treatment [facility] Start: 2024 Insertion of catheter into peripheral vein [facility] Start: 2024 Notification of physician [facility] Start: 2024 Providing care according to standard [facility] Start: 2024 Provision of activity privileges [facility] Start: 2024 Referral to occupational therapist [facility] Start: 2024 Referral to bag mender [facility] Start: 2024 Referral to service [facility] Start: 2024 End: 2024 [facility] Start: 2024 Following clinical pathway protocol [facility] Start: 2024 Verification routine [facility] Start: 2024 Admission procedure [facility] Start: 2024 Hospital admission, emergency, from emergency room, medical nature [facility] Start: 2024 Source specific culture [facility] Start: 2024 Anaerobic Culture Anaerobic Culture [facility] Start: 2024 Bacteria identified in Blood by Culture Blood Culture [facility] Start: 2024 Microscopic observation [Identifier] in Unspecified specimen by Gram stain [facility] Start: 2024 Wound Culture Wound Culture [facility] Start: 2024 End: 2024 [facility] Start: 2024 Inhalation therapy procedure [facility] Start: 2024 Patient referral to dietitian [facility] Start: 06-20-2024 Advance Directive Discussion Advance Directive Discussion [facility] Start: 05-24-2023 Blood chemistry [facility] Start: 05-23-2023 Patient discharge [facility] Start: 05-23-2023 Patient referral to dietitian [facility] Start: 05-21-2023 Referral to bag mender [facility] Start: 05-21-2023 Continuous positive airway pressure ventilation treatment [facility] Start: 05-21-2023 Following clinical pathway protocol [facility] Start: 05-21-2023 Ambulation without limitation [facility] Start: 05-21-2023 Assessment of risk of venous thromboembolism [facility] Start: 05-21-2023 Care regimes management [facility] Start: 05-21-2023 Consultation [facility] Start: 05-21-2023 Incentive spirometry [facility] Start: 05-21-2023 Insertion of catheter into peripheral vein [facility] Start: 05-21-2023 Notification of physician [facility] Start: 05-21-2023 Oxygen therapy [facility] Start: 05-21-2023 Providing care according to standard [facility] Start: 05-21-2023 Referral to occupational therapist [facility] Start: 05-21-2023 Referral to service [facility] Start: 05-21-2023 [facility] Start: 05-21-2023 Blood culture [facility] Start: 05-21-2023 Verification routine [facility] Start: 05-21-2023 Admission procedure [facility] Start: 05-21-2023 Bacteria identified in Blood by Culture Blood Culture [facility] Start: 05-21-2023 Blood culture [facility] Start: 12-03-2022 Patient discharge [facility] Start: 12-02-2022 [facility] Start: 11-30-2022 End: 12-01-2022 [facility] Start: 11-30-2022 Care planning and problem solving actions [facility] Start: 11-30-2022 End: 11-30-2022 Blood culture [facility] Start: 11-29-2022 Consultation [facility] Start: 11-29-2022 Care planning and problem solving actions [facility] Start: 11-29-2022 [facility] Start: 11-28-2022 End: 11-29-2022 [facility] Start: 11-28-2022 Care planning and problem solving actions [facility] Start: 11-28-2022 Continuous pulse oximetry [facility] Start: 11-28-2022 Following clinical pathway protocol [facility] Start: 11-28-2022 Assessment of risk of venous thromboembolism [facility] Start: 11-28-2022 Care regimes management [facility] Start: 11-28-2022 Insertion of catheter into peripheral vein [facility] Start: 11-28-2022 Measuring intake and output [facility] Start: 11-28-2022 Oxygen therapy [facility] Start: 11-28-2022 Providing care according to standard [facility] Start: 11-28-2022 Provision of activity privileges [facility] Start: 11-28-2022 Referral to occupational therapist [facility] Start: 11-28-2022 Referral to service [facility] Start: 11-28-2022 Admission procedure [facility] Start: 11-28-2022 Dual pressure spontaneous ventilation support [facility] Start: 11-28-2022 Patient referral to dietitian [facility] Start: 11-28-2022 [facility] Start: 06-20-2022 ADVANCE DIRECTIVE DISCUSSION ADVANCE DIRECTIVE DISCUSSION [facility] Start: 06-20-2022 DEPRESSION ASSESSMENT DEPRESSION ASSESSMENT [facility] Start: 02-18-2022 Influenza vaccination INFLUENZA (#1) [facility] Start: 10-10-2019 PNEUMOCOCCAL: 65+ (1 - PCV) PNEUMOCOCCAL: 65+ (1 - PCV) [facility] Start: 2014 [facility] Start: 2009 PROSTATE CANCER SCREENING DISCUSSION PROSTATE CANCER SCREENING DISCUSSION [facility] Start: 2004 Pneumococcal Vaccine: 50+ (1 of 1 - PCV) Pneumococcal Vaccine: 50+ (1 of 1 - PCV) [facility] Start: 2004 SHINGRIX VACCINE (1 of 2) SHINGRIX VACCINE (1 of 2) [facility] Start: 10-10-1999 COLOGUARD (FIT-DNA) COLOGUARD (FIT-DNA) [facility] Start: 10-10-[address] [facility] Start: 10-10-1999 COLORECTAL CANCER SCREENING COLORECTAL CANCER SCREENING [facility] Start: 10-10-[address] [facility] Start: 10-10-1999 Diabetes Screening Diabetes Screening [facility] Start: 10-10-1999 FECAL OCCULT BLOOD FECAL OCCULT BLOOD [facility] Start: 10-10-1999 Screening for malignant neoplasm of colon [facility] Start: 10-10-[address] [facility] Start: 1989 Lipid panel Lipid Screening [facility] Start: 1973 Pneumococcal vaccination [facility] Start: 1973 Third diphtheria, tetanus and acellular pertussis (DTaP) vaccination [facility] Start: 1973 Urine microalbumin profile [facility] Start: 1973 [facility] Start: 1972 Anxiety Screening Anxiety Screening [facility] Start: 1972 Depression Screening Depression Screening [facility] Start: 1972 Hepatitis B surface antibody level LDL CHOLESTEROL [facility] Start: 1972 HEPATITIS C SCREENING HEPATITIS C SCREENING [facility] Start: 1972 Hepatitis C screening Hepatitis C Screening [facility] Start: 1964 3 comp foot exam completed DIABETIC FOOT EXAM [facility] Start: 1964 Hepatitis B screening URINE ALBUMIN:CREATININE RATIO [facility] Start: 1964 Hepatitis C antibody, confirmatory test DILATED RETINAL EXAM [facility] Start: 10-10-1959 Hemoglobin A1c/Hemoglobin.total in Blood HBA1C [facility] Start: 10-10-1959 [facility] Start: 04-10-1955 COVID-19 VACCINE (#1) COVID-19 VACCINE (#1) [facility] Start: 1954 ABDOMINAL AORTIC ANEURYSM SCREENING ABDOMINAL AORTIC ANEURYSM SCREENING [facility] Start: 1954 Abdominal aortic aneurysm screening Abdominal Aortic Aneurysm Screening [facility] Start: 1954 Hepatitis C screening [facility] Start: 1954 Tetanus vaccination [facility] Bacteria identified in Blood by Culture Blood Culture [facility] Bacteria identified in Unspecified specimen by Anaerobe culture [facility] Patient Education [facility] Work Phone: Patient referral [facility] Work Phone: End: 10-24-2024 Standard ECG [facility] End: 10-16-2024 VANCOMYCIN LEVEL, TROUGH (PRE DRUG LEVEL) [facility] Wound microscopy, cu lture and sensitivities [facility] Payers Date Payer Category Payer Medicaid [id number] 2024 Medicaid 2024 Medicare (Managed Care) 1.2. [id number] 2024 Self-pay [id number] 2019 Medicare [id number] 2019 Medicare [id number] 2019 Unknown [id number] 2019 Private Health Insurance [employer] A ETNA PPO [id number] 2019-Present [phone] [address] [place] [address] PPO [id number] 2014 Private Health Insurance [id number] 1955 Unknown [id number] 2.16.840.1.877517.3.579.2.7 32 1954 Unknown [id number] 2.16.840.1.431976.3.579.2.5 94 Unknown [id number] 2.16.840.1.540237.3.579.2.4 62 Unknown [id number] 2.16.840.1.547449.3.579.2.4 62 Unknown [id number] 2.16.840.1.147780.3.579.2.4 62 Unknown [id number] 2.16.840.1.754456.3.579.2.4 62 Unknown [id number] 2.16.840.1.712021.3.579.2.4 62 Unknown [id number] 2.16.840.1.019266.3.579.2.4 62 Unknown [id number] 2.16.840.1.304368.3.579.2.4 62 Unknown [id number] 2.16.840.1.383999.3.579.2.4 62 Unknown [id number] 2.16.840.1.677602.3.579.2.4 62 Unknown [id number] 2.16.840.1.122942.3.579.2.4 62 Unknown [id number] 2.16.840.1.993514.3.579.2.4 62 Unknown [id number] 2.16.840.1.928984.3.579.2.4 62 Unknown [id number] 2.16.840.1.532301.3.579.2.4 62 Unknown [id number] 2.16.840.1.096580.3.579.2.4 62 Unknown [id number] 2.16.840.1.395429.3.579.2.4 62 Unknown [id number] 2.16.840.1.060416.3.579.2.4 62 Unknown [id number] 2.16.840.1.948888.3.579.2.4 62 Unknown [id number] 2.16.840.1.118591.3.579.2.4 62 Unknown [id number] 2.16.840.1.227328.3.579.2.4 62 Unknown [id number] 2.16.840.1.226667.3.579.2.4 62 Unknown [id number] 2.16.840.1.986565.3.579.2.4 62 Unknown [id number] 2.16.840.1.741328.3.579.2.4 62 Unknown [id number] 2.16.840.1.956462.3.579.2.4 62 Unknown [id number] 2.16.840.1.080129.3.579.2.4 62 Unknown [id number] 2.16.840.1.366079.3.579.2.4 62 Unknown [id number] 2.16.840.1.426696.3.579.2.4 62 Unknown [id number] 2.16.840.1.278048.3.579.2.4 62 Unknown [id number] 2.16.840.1.838500.3.579.2.4 62 Unknown [id number] 2.16.840.1.992718.3.579.2.4 62 Unknown [id number] 2.16.840.1.886741.3.579.2.4 62 Unknown [id number] 2.16.840.1.945848.3.579.2.4 62 Unknown [id number] 2.16.840.1.189333.3.579.2.4 62 Unknown [id number] 2.16.840.1.891954.3.579.2.4 62 Unknown [id number] 2.16.840.1.800383.3.579.2.4 62 Unknown [id number] 2.16.840.1.818399.3.579.2.4 62 Social History Date Type Detail Facility Start: 05-13-2021 End: 07-11-2023 Tobacco smoking status NHIS Unknown if ever smoked [facility] Start: 09-17-2014 None [facility] Start: 10-29-2014 With Family [facility] Start: 10-01-2020 Non-smoker [facility] Start: 1955 Sex Assigned At Male W [facility] Start: 03-16-2017 End: 07-11-2023 Tobacco smoking status NHIS Ex-smoker [facility] History of tobacco use Current smoker [facility] History of tobacco use Cigarette Smoker [facility] Start: 03-16-2017 End: 10-24-2024 Tobacco use and exposure Smokeless tobacco non-user 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 Start: 03-16-2017 Tobacco Comment smoked in teen years [facility] Start: 1955 Sex Assigned At Not on file [facility] Start: 09-01-2024 End: 10-16-2024 Sex Male (finding) [facility] Start: 09-25-2024 End: 2024 Tobacco smoking status NHIS Never smoked tobacco (finding) [facility] Start: 12-17-2017 End: 10-24-2024 History of Social function [facility] Start: 12-17-2017 End: 10-24-2024 Tobacco use panel [facility] Medical Equipment Procedure Code Equipment Code Equipment Origin al Text Equipment Identifier Dates External fixation, tibia ([id number]) ()[id number] FDA Start: 10-15-2024 External fixation, tibia ([id number]) ()[id number] FDA Start: 10-15-2024 External fixation, tibia ([id number]) ()[id number] FDA Start: 10-15-2024 External fixation, tibia ([id number]) ()[id number] FDA Start: 10-15-2024 External fixation, tibia ([id number]) ()[id number] FDA Start: 10-15-2024 External fixation, tibia ()[id number] FDA Start: 10-15-2024 External fixation, tibia ([id number]) ()[id number] FDA Start: 10-15-2024 External fixation, tibia ([id number]) ()[id number] FDA Start: 10-15-2024 External fixation, tibia ()[id number] FDA Start: 10-15-2024 External fixation, tibia ()[id number] FDA Start: 10-15-2024 Debridement, wound DRESSING,SURG ICEL 4x8 FDA Start: 10-11-2024 Debridement, wound DRESSING,SURG ICEL 4x8 FDA Start: 10-11-2024 Debridement, wound DRESSING,SURG ICEL 4x8 FDA Start: 10-11-2024 Debridement, wound DRESSING,SURG ICEL 4x8 FDA Start: 10-11-2024 Debridement, wound FDA Start: 10-11-2024 Debridement, wound FDA Start: 10-11-2024 Debridement, wound FDA Start: 10-11-2024 Debridement, wound FDA Start: 10-11-2024 Debridement, wound DRESSING,SURG ICEL [...] wound DRESSING,SURG ICEL 4x8 FDA Start: 10-11-2024 Amputation, foot MADELEINE 3GRM [...] Amputation, foot FDA Start: 12-04-2020 Amputation, foot MADELEINE 3GRM [...] MADELEINE 3GRM HEMOSTAT ABS FDA Start: 12-04-2020 Blood Sugar Diagnostic (Nanterotouch Ultra Test) strip Start: 07-11-2023 Blood Sugar Diagnostic (Onetouch Ultra Test) strip Start: 07-11-2023 Pen Needle, Diabetic 32 gauge x 5/32 needle Start: 05-23-2023 Blood Sugar Diagnostic (Onetouch Ultra Test) strip Start: 07-11-2023 Pen Needle, Diabetic 32 gauge x 5/32 needle Start: 05-23-2023 Blood Sugar Diagnostic (Onetouch Ultra Test) strip Start: 07-11-2023 Pen Needle, Diabetic 32 gauge x 5/32 needle Start: 05-23-2023 Blood Sugar Diagnostic (Onetouch Ultra Test) strip Start: 07-11-2023 Pen Needle, Diabetic 32 gauge x 5/32 needle Start: 05-23-2023 Blood Sugar Diagnostic (Onetouch Ultra Test) strip Start: 07-11-2023 Pen Needle, Diabetic 32 gauge x 5/32 needle Start: 05-23-2023 Blood Sugar Diagnostic (Onetouch Ultra Test) strip Start: 07-11-2023 Pen Needle, Diabetic 32 gauge x 5/32 needle Start: 05-23-2023 Blood Sugar Diagnostic (Onetouch Ultra Test) strip Start: 07-11-2023 Pen Needle, Diabetic 32 gauge x 5/32 needle Start: 05-23-2023 Blood Sugar Diagnostic (Onetouch Ultra Test) strip Start: 07-11-2023 Pen Needle, Diabetic 32 gauge x 5/32 needle Start: 05-23-2023 Blood Sugar Diagnostic (Onetouch Ultra Test) strip Start: 07-11-2023 Pen Needle, Diabetic 32 gauge x 5/32 needle Start: 05-23-2023 Blood Sugar Diagnostic (Onetouch Ultra Test) strip Start: 07-11-2023 Pen Needle, Diabetic 32 gauge x 5/32 needle Start: 05-23-2023 Blood Sugar Diagnostic (Onetouch Ultra Test) strip Start: 07-11-2023 Pen Needle, Diabetic 32 gauge x 5/32 needle Start: 05-23-2023 Goals Date Patient Goal Desired Activity /State Functional Status Date Assessment Result Facility 10-24-2024 Are you deaf, or do you have serious difficulty hearing No [facility] 10-24-2024 Are you blind, or do you have serious difficulty seeing, even when wearing glasses No [facility] 10-24-2024 Do you have serious difficulty walking or climbing stairs Yes [facility] 10-24-2024 Do you have difficul ty dressing or bathing Yes [facility] 10-24-2024 Because of a physica l, mental, or emotional condition, do you have difficulty doing errands alone such as visiting a physician's office or shopping Yes [facility] 10-16-2024 Functional status Unable to Assess;Post O p [facility] Work Phone: 10-16-2024 Functional status Bedrest [facility] Work Phone: 05-23-2023 Functional status Chair [facility] Work Phone: 12-03-2022 Functional status Ambulates [facility] Work Phone: Mental Status Date Assessment Result Facility 10-24-2024 Because of a physica l, mental, or emotional condition, do you have serious difficulty concentrating, remembering, or making decisions Yes [facility] 10-16-2024 Cognitive function Voice/Name [facility] Work Phone: 05-23-2023 Cognitive function Voice/Name [facility] Work Phone: 05-22-2023 Cognitive function Appropriate;C ooperativ e [facility] Work Phone: 12-03-2022 Cognitive function Voice/Name [facility] Work Phone: Clinical Notes 11-28-2022 to 03-12-2025 Note Date & Type Note Facility 03-12-2025 Note HNO ID: [id number] Author: STEF HUBBARD PA-C Service: ? Author Type: Physician Excellence Consultant Type: Progress Notes Filed: 03/25/2025 19:41 Note Text: [facility] NEW PATIENT CLINIC NOTE (M) Note was generated by [email or web address] and edited as appropriate SERVICE DATE: March 12, 2025 NAME: Lani Zaragoza GENDER: male CHIEF COMPLAINT: The patient is a 69-year-old male presenting for evaluation of infrequent voiding and concern for urinary retention. HISTORY OF PRESENT ILLNESS: The patient is a 69-year-old male presenting for evaluation of infrequent voiding and concern for urinary retention. Urinary Retention: - Reports urinating every 6-8 hours during the day. - Denies nocturia; able to sleep through the night without needing to urinate. - Denies urgency or frequency. - Denies feeling of incomplete bladder emptying. - Currently taking Flomax 2 capsules at bedtime. 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 - Reports improvement in urinary function since being able to get out of bed and use the bathroom independently. - Noted weight loss of 40 lbs recently; previously experienced increased urinary frequency when heavier. LABS: No results found for: PSA No results found for: TESTOST No results found for: HCT No results found for: PSA No results found for: CREAT MEDICATIONS: apixaban (ELIQUIS) 5 mg tab(s) Take 5 mg by mouth two times a day. atorvastatin (LIPITOR) 40 mg tablet Take 40 mg by mouth daily at bedtime. carvedilol (COREG) 3.125 mg tablet Take 3.125 mg by mouth two times a day. citalopram hydrobromide (CELEXA) 10 mg tablet Take 10 mg by mouth once daily. Chlorhexidine Gluconate (PERIDEX) 0.12 % solution Use 15 mL as instructed two times a day. Rinse around mouth for 30 seconds then expectorate docusate sodium (COLACE) 100 mg capsule Take 100 mg by mouth once daily. tamsulosin (FLOMAX) 0.4 mg Take 0.8 mg by mouth daily at bedtime. aspirin, enteric coated (ASPIRIN, ENTERIC COATED) 81 mg EC tablet Take 81 mg by mouth once daily. acetaminophen (TYLENOL EXTRA STRENGTH) 500 mg tablet Take 1,000 mg by mouth every 8 hours as needed. (Patient taking differently: Take 650 mg by mouth every 4 hours as needed for fever (specify temp.) or pain.) amLODIPine (NORVASC) 5 mg tablet 1 tablet once daily. (Patient taking differently: Take 10 mg by mouth once daily.) pyridoxine, vitamin B6, (VITAMIN B6) 100 mg tablet Take 1 tablet by mouth once daily. gabapentin (NEURONTIN) 300 mg capsule 1 capsule three times daily. glimepiride (AMARYL) 4 mg tablet 1 tablet once daily. losartan (COZAAR) 100 mg tablet 1 tablet once daily. meloxicam (MOBIC) 15 mg tablet 1 tablet once daily. metFORMIN (GLUCOPHAGE) 1,000 mg tablet 1 tablet twice daily. metoprolol tartrate, short acting, (LOPRESSOR) 50 mg tablet 1 tablet twice daily. pioglitazone (ACTOS) 45 mg tablet 1 tablet once daily. PAST MEDICAL HISTORY: No past medical history on file. PAST SURGICAL HISTORY: PAST SURGICAL HISTORY Procedure Laterality Date PAST SURGICAL HISTORY OF Right Foot surgery due to diabetes PAST SURGICAL HISTORY OF Left Small Toe removed due to diabetes FAMILY HISTORY: FAMILY HISTORY Problem Relation Age of Onset other (thyroid issue) Mother Arthritis Mother Colon Cancer Father No Known Problems Sister other (Breast Removal) Sister Uterine Fibroids Sister No Known Problems Sister Heart Maternal Grandmother Diabetes Maternal Grandmother Heart Maternal Grandfather Diabetes Maternal Grandfather Heart Paternal Grandmother No Known Problems Paternal Grandfather Diabetes Maternal Aunt Prostate Cancer Paternal Uncle other (lung cancer) Paternal Uncle SOCIAL HISTORY: Social Connections: Not on file REVIEW OF SYSTEMS: Constitutional: (+) weight loss Genitourinary: (+) decreased urinary frequency, (-) urinary urgency, (-) urinary frequency, (-) nocturia, (-) dysuria, (-) hematuria, (-) urinary retention, (-) incomplete bladder emptying PHYSICAL EXAMINATION: There were no vitals taken for this visit. General: Alert AND oriented, no acute distress Skin: Normal HEENT: Pupils equal, round. Oral cavity, oropharynx clear Neck: Supple, no mass Breast: Deferred Respiratory: Clear to auscultation, bilaterally Cardiovascular: Regular rate and rhythm, no murmurs, rubs, or gallops Abdomen: Soft, non-tender, non-distended, no masses palpable, no hepatosplenomegaly, normal bowel sounds Genitourinary: Deferred MSK: Back is non-tender Extremities: No clubbing, cyanosis, or edema PROBLEM LIST REVIEW: Yes LABS: Results for orders placed or performed in visit on 03/12/25 UA DIP, URINE (POC) Result Value Ref Range GLUCOSE UA (POCT) Negative Negative mg/dL BILIRUBIN UA (POCT) Negative Negative KETONE UA ( (more content not included)... [facility] 03-12-2025 Note HNO ID: [id number] Author: ELÍAS HUNTER LPN Service: ? Author Type: Licensed Nurse Type: Progress Notes Filed: 03/25/2025 19:41 Note Text: Verified name and date of . Patient resides at [facility]. , fax: . CC Post Void Residual HPI: Lani Zaragoza is a 69 year old male. The patient is here now for an appointment with HOMER Dumont, [place], PA-COV. Procedure: Explained procedure to patient and verbalizes understanding. Performed a PVR. Patient urinated and instructed to empty bladder as much as possible just prior to having PVR done using bladder ultrasound scanner. Results of scan: 52 mL The patient tolerated the procedure well. Plan: Appointment with Stef. [facility] 03-06-2025 Progress note Note Date/Time March 06, 2025 12:55pm [facility] [address] [place] [id number] Progress Note - Wound Care 03/06/25 1253 MR#: [id number] Acct: [id number] Name: LANI ZARAGOZA Rep #:[id number] : 1955 69 From: [place] GRAY PCP: Dr. Bernabe Reese MD Status:[facility] Location: History of Present Illness Date of Service: 03/06/25 Chief Complaint: Diabetic right heel ulceration History of Wound: This is a 69-year-old obese, diabetic male patient whose care has been assumed from Dr. Ramon Garcia, who is departing from our staff. The patient has a chronic ulceration on his right heel, associated with poorly controlled type 2 diabetes mellitus and diabetic polyneuropathy. The patient suffers from multiple other pre-existing medical problems, which are documented herein. The patient's most recent management has been by means of serial debridements, with an EpiFix allograft having been applied at the patient's prior visit on December 11, 2024. Offloading measures and total contact casting have also been a recent cornerstone of the patient's management. 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 Progress of Wound: Right lower extremity healed heel wound with breakdown of skin secondary to venous insufficiency of the right leg. Subjective Subjective Is a 69-year-old diabetic male presenting to wound care center today follow-up evaluation of full-thickness wound to left heel and breakdown of skin to the right leg. Patient has been wearing the double layer Tubigrip and working with physical therapy with a surgical shoe donned to the right lower extremity. He has not gotten a new pair shoes at this time. He will be purchasing shoes himself from a store within his vicinity. His blood sugars well-controlled. Hedenies trauma. Denies constitutional symptoms. No other pedal complaints at this time. Objective Data Objective Data Vital Signs: Vital Signs Temp Pulse Resp BP O2 Del Method 97.3 F L 86 16 115/64 Room Air 03/06/25 10:36 03/06/25 10:36 03/06/25 10:36 03/06/25 10:36 02/27/25 10:32 Oxygen Delivery Method Room Air Lab / Micro Data Micro: Microbiology 01/02/25 14:14 Ulcer, Decubitus - Toe Gram Stain - Final 01/02/25 14:14 Ulcer, Decubitus - Toe Wound Culture - Final Meth. resistant Staph. aureus 01/02/25 14:14 Ulcer, Decubitus - Toe Anaerobic Culture - Final No anaerobic bacteria isolated. Physical Exam Narrative Vascular: DP and PT pulse are palpable. CFT is brisk. Skin temperature is warmto warm from proximal ankles to distal digit bilateral. Nonpitting edema with hemosiderin deposit appreciated bilateral extremity. No erythema bilateral. Neurological:. Light touch is intact. Protective station is diminished. Patient does not respond to painful stimuli. Dermatological: Full-thickness wound to the right heel measures 0.1 x 0.1 x 0.1 cm. Wound base is granular with no concern for infection. All wounds anterior right leg are now healed. Musculoskeletal: No pain to palpation to full-thickness wound bilateral. No pain with calf pressure. Debridement Note Debridement Note Post-Debridement Measurements and Additional Note: Post-Debridement Measurements/Treatment BUDDY - Nurse 1 - General Ulcer Assessment Start: 02/27/25 10:31 Freq: Status: Active Protocol: MARGY Activity Type Activity Date Activity User E-sign Co-sign Detail Recorded Client Recorded Date Recorded By Document 02/27/25 10:32 NE [id number] 02/27/25 10:44 NE Document 03/06/25 10:36 [id number] 03/06/25 10:41 02/27/25 03/06/25 10:32 10:36 - Today's Visit Information Type of service Follow-up Visit Follow-up Visit (Physician/AERIAL SURVEY TECHNICIAN (Physician/AERIAL SURVEY TECHNICIAN ) ) Arrival Mode Ambulatory Ambulatory Accompanied by SELF Patient Identification Verified (Name & Yes ) Safety Precautions Fall Prevention Vital Signs Temperature (97.8 F-99.1 F) 98 F 97.3 F L Temperature Source Temporal Temporal Pulse Rate (60-100) 83 86 Pulse Location Monitor Monitor Respiratory Rate (12-18) 18 16 Respiratory rate source Observation Observation Oxygen Delivery Method Room Air Blood Pressure (90/60-120/80) 109/64 115/64 Blood Pressure Mean (mm Hg) 79 81 Source Monitor Monitor Position Sitting Sitting Blood Pressure Location Right Arm Right Arm History Since Last Visit- [...] Has compression in place as prescribed Yes Yes Has offloadiing in place as prescribed Yes N/A Experienced any changes in pain level or Yes management Left Footwear Regular Shoe Right Footwear Regular Shoe Pain Scale: 0-10 Numeric Is Patient Pain Free? Yes Yes - Nurse 1 - General Ulcer Measurement Start: 02/27/25 10:31 Freq: Status: Active Protocol: Activity Type Activity Date Activity User E-sign Co-sign Detail Recorded Client Recorded Date Recorded By Document 02/27/25 10:32 NE [id number] 02/27/25 10:44 NE Document 03/06/25 10:36 [id number] 03/06/25 10:41 02/27/25 03/06/25 10:32 10:36 Wound Center Nurse 1 RIGHT QUINN CLUSTER -Current Size (cm) - Length 0 -Current Size (cm) - Width 0 -Current Size (cm) - Depth 0 -Total Square Cm 0 5-left 2nd toe -Current Size (cm) - Length 0.1 -Current Size (cm) - Width 0.1 -Current Size (cm) - Depth 0.1 -Total Square Cm 0.01 -Date of Last Picture (Recall this 02/27/25 field) -Photo Taken Yes -Tunneling No -Undermining/Tunneling No -Circular Undermining No -Exudate Amt Small -Exudate Type Serosanguineous -Wound Margin Flat & Intact -Granulation Amt Large (67-100%) -Granulation Quality Pale,[place] -Slough/Fibrin No -Necrosis Amt Small (1-33%) -Necrotic Tissue Type Adherent Slough -Texture (Lesvia-wound Skin Appearance) Assessed -Moisture (Lesvia-wound Skin Appearance) Assessed -Color (Lesvia-wound Skin Appearance) Assessed -Temperature (Lesvia-wound Skin No Abnormality Appearance) (Pt Warm) -Tenderness on Palpation (Lesvia-wound No Skin Appearance) -Ulcer Cleansing Soap and Water -Foul Odor after Cleansing No -Anesthetic Used 5% Lidocaine Gel 4.R heel medial -Current Size (cm) - Length 0.1 0.1 -Current Size (cm) - Width 0.1 0.1 -Current Size (cm) - Depth 0.1 0.1 -Total Square Cm 0.01 0.01 -Date of Last Picture (Recall this 02/27/25 field) -Photo Taken Yes -Tunneling No -Undermining/Tunneling No -Circular Undermining No -Exudate Amt Small -Exudate Type Serosanguineous -Wound Margin Flat & Intact -Granulation Amt Large (67-100%) -Granulation Quality Pale,[place] -Necrosis Amt Small (1-33%) -Necrotic Tissue Type Adherent Slough -Texture (Lesvia-wound Skin Appearance) Assessed -Moisture (Elsvia-wound Skin Appearance) Assessed -Color (Lesvia-wound Skin Appearance) Assessed -Temperature (Lesvia-wound Skin No Abnormality Appearance) (Pt Warm) -Tenderness on Palpation (Lesvia-wound No Skin Appearance) -Ulcer Cleansing Soap and Water -Foul Odor after Cleansing No -Anesthetic Used 5% Lidocaine Gel Right Calf (cm) 41.5 Right Ankle (cm) 29 WC - Nurse 2 - General Ulcer CM Notes Start: 02/27/25 10:31 Freq: Status: Active Protocol: Activity Type Activity Date Activity User E-sign Co-sign Detail Recorded Client Recorded Date Recorded By Document 02/27/25 10:50 ÁNGEL [id number] 02/27/25 10:53 JF Document 03/06/25 10:53 ÁNGEL [id number] 03/06/25 10:54 JF 02/27/25 03/06/25 10:50 10:53 Wound Center Nurse 2 RIGHT QUINN CLUSTER -Time 10:52 -Correct Patient Yes Yes -Correct Side, Site, Position Yes No -Correct Procedure Yes No -Procedure Performed Yes No -Type of Procedure Debridement -Clinical Debridement Subcutaneous -Tissue Removed Subcutaneous -Post Debridement (cm) - Length 2.4 0 -Post Debridement (cm) - Width 2.1 0 -Post Debridement (cm) - Depth 0.1 0 -Total Square (Post) (cm) 5.04 0 -Area of Debridement (cm) - Length 2.4 0 -Area of Debridement (cm) - Width 2.1 0 -Total Square (Area) (cm) 5.04 0 -Tunneling No -Undermining/Tunneling No -Circular Undermining No -Wound/Ulcer Outcome Not Healed Healed- Epithelialized -Ulcer Cleansing Rinsed/ Irrigated with Saline -Foul Odor after Cleansing No -Bioengineered Tissue No -Bleeding Controlled with Pressure -Treatment Response Procedure Tolerated Well -Offloading No -Debridement - Subq, 1st 20sq cm Yes 5-left 2nd toe -Correct Patient Yes -Correct Side, Site, Position No -Correct Procedure No -Procedure Performed No -Post Debridement (cm) - Length 0 -Post Debridement (cm) - Width 0 -Post Debridement (cm) - Depth 0 -Total Square (Post) (cm) 0 -Area of Debridement (cm) - Length 0 -Area of Debridement (cm) - Width 0 -Total Square (Area) (cm) 0 -Wound/Ulcer Outcome Healed- Epithelialized 4.R heel medial -Correct Patient Yes Yes -Correct Side, Site, Position No No -Correct Procedure No No -Procedure Performed No No -Post Debridement (cm) - Length 0 0.1 -Post Debridement (cm) - Width 0 0.1 -Post Debridement (cm) - Depth 0 0.1 -Total Square (Post) (cm) 0 0.01 -Area of Debridement (cm) - Length 0 0.1 -Area of Debridement (cm) - Width 0 0.1 -Total Square (Area) (cm) 0 0.01 -Wound/Ulcer Outcome Healed- Not Healed Epithelialized Pain Scale: 0-10 Numeric Is Patient Pain Free? Yes Yes - Nurse 3 - General Ulcer D/C NN Start: 02/27/25 10:31 Freq: Status: Active Protocol: Activity Type Activity Date Activity User E-sign Co-sign Detail Recorded Client Recorded Date Recorded By Document 02/27/25 11:13 NE [id number] 02/27/25 11:20 NE Document 03/06/25 11:08 [id number] 03/06/25 11:08 02/27/25 03/06/25 11:13 11:08 Wound Care Center Nurse 3 RIGHT QUINN CLUSTER -Foul Odor after Cleansing No -Negative Pressure Wound Therapy N/A -Other Dressing BACITRACIN AND BETADINE -Primary Dressing Covered/Secured with Dry Gauze & Roll Gauze, Secured with Tape BLE -Lotion applied to leg before Yes compression wrap -Tubular Bandage Double Layer Double Layer -Size of Tubigrip Used Size E Size E -Size E ($) 2 2 Pain Scale: 0-10 Numeric Is Patient Pain Free? Yes Yes - Visit Discharge Discharge Condition Stable Ambulatory Status Wheelchair Transportation Private Auto Assessment/Plan Assessment/Plan (1) Non-pressure chronic ulcer of other part of right lower leg with fat layer exposed: CODE(S): L97.812 - Non-pressure chronic ulcer of other part of right lowerleg with fat layer exposed PLAN: Patient was examined and evaluated. All findings were discussed with the patient. All questions were answered to the patient's satisfaction. After exam the patient's full-thickness wound to the right heel measures 0.1 x 0.1 x 0.1 cm. No debridement was done at this time. The right leg is now healed. Patient will continue physical therapy with surgical shoe and diabetic shoe donned to left lower extremity. Recommended the patient follow-up with [facility] store for extra-depth shoes to be sized and fitted to his specifications she is understanding of. Follow-up at the wound care center with Dr. Cerda in 1 week. (2) Non-pressure chronic ulcer of other part of right foot with fat layer exposed: CODE(S): L97.512 - Non-pressure chronic ulcer of other part of right foot with fat layer exposed 03/06/25 1255 <Electronically signed by León Cerda DPM> Cosigner Signature (if applicable): CC: ~ Signed [facility] Work Phone: [phone] Progress note [facility] [address] [place] [address] Progress Note - Wound Care 03/06/25 1253 MR#: [id number] Acct: [id number] Name: LANI ZARAGOZA Rep #:[id number] : 1955 69 From: León Pompa PM PCP: Dr. Bernabe Reese MD Status:RE G RCR Location: History of Present Illness Date of Service: 03/06/25 Chief Complaint: Diabetic right heel ulceration History of Wound: This is a 69-year-old obese, diabetic male patient whose care has been assumed from Dr. Ramon Garcia, who is departing from our staff. The patient has a chronic ulceration on his right heel, associated with poorly controlled type 2 diabetes mellitus and diabetic polyneuropathy. The patient suffers from multiple other pre-existing medical problems, which are documented herein. The patient's most recent management has been by means of serial debridements, with an EpiFix allograft having been applied at the patient's prior visit on December 11, 2024. Offloading measures and totalcontact casting have also been a recent cornerstone of the patient's management. 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 Progress of Wound: Right lower extremity healed heel wound with breakdown of skin secondary to venous insufficiency ofthe right leg. Subjective Subjective Is a 69-year-old diabetic male presenting to wound care center today follow-up evaluation of full-thickness wound to left heel and breakdown of skin to the right leg. Patient has been wearing the double layer Tubigrip and working with physical therapy with a surgical shoe donned to the right lower extremity. He has not gotten a new pair shoes at this time. He will be purchasing shoes himself froma store within his vicinity. His blood sugars well-controlled. Hedenies trauma. Denies constitutional symptoms. No other pedal complaints at this time. Objective Data Objective Data Vital Signs: Vital Signs Temp Pulse Resp BP O2 Del Method 97.3 F L 86 16 115/64 Room Air 03/06/25 10:36 03/06/25 10:36 03/06/25 10:36 03/06/25 10:36 02/27/25 10:32 Oxygen Delivery Method Room Air Lab / Micro Data Micro: Microbiology 01/02/25 14:14 Ulcer, Decubitus - Toe Gram Stain - Final 01/02/25 14:14 Ulcer, Decubitus - Toe Wound Culture - Final Meth. resistant Staph. aureus 01/02/25 14:14 Ulcer, Decubitus - Toe Anaerobic Culture - Final No anaerobic bacteria isolated. Physical Exam Narrative Vascular: DP and PT pulse are palpable. CFT is brisk. Skin temperature is warmto warm from proximalankles to distal digit bilateral. Nonpitting edema with hemosiderin deposit appreciated bilateral extremity. No erythema bilateral. Neurological:. Light touch is intact. Protective station is diminished. Patient does not respond topainful stimuli. Dermatological: Full-thickness wound to the right heel measures 0.1 x 0.1 x 0.1 cm. Wound base is granular with no concern for infection. All wounds anterior right leg are now healed. Musculoskeletal: No pain to palpation to full-thickness wound bilateral. No pain with calf pressure. Debridement Note Debridement Note Post-Debridement Measurements and Additional Note: Post-Debridement Measurements/Treatment - Nurse 1 - General Ulcer Assessment Start: 02/27/25 10:31 Freq: Status: Active Protocol: WC.LOWEXT Activity Type Activity Date Activity User E-sign Co-sign Detail Recorded Client Recorded Date Recorded By Document 02/27/25 10:32 NE [id number] 02/27/25 10:44 NE Document 03/06/25 10:36 [id number] 03/06/25 10:41 CP 02/27/25 03/06/25 10:32 10:36 - Today's Visit Information Type of service Follow-up Visit Follow-up Visit (Physician/AERIAL SURVEY TECHNICIAN (Physician/AERIAL SURVEY TECHNICIAN ) ) Arrival Mode Ambulatory Ambulatory Accompanied by SELF Patient Identification Verified (Name & Yes ) Safety Precautions Fall Prevention Vital Signs Temperature (97.8 F-99.1 F) 98 F 97.3 F L Temperature Source Temporal Temporal Pulse Rate (60-100) 83 86 Pulse Location Monitor Monitor Respiratory Rate (12-18) 18 16 Respiratory rate source Observation Observation Oxygen Delivery Method Room Air Blood Pressure (90/60-120/80) 109/64 115/64 Blood Pressure Mean (mm Hg) 79 81 Source Monitor Monitor Position Sitting Sitting Blood Pressure Location Right Arm Right Arm History Since Last Visit- [...] Has compression in place as prescribed Yes Yes Has offloadiing in place as prescribed Yes N/A Experienced any changes in pain level or Yes management Left Footwear Regular Shoe Right Footwear Regular Shoe Pain Scale: 0-10 Numeric Is Patient Pain Free? Yes Yes WC - Nurse 1 - General Ulcer Measurement Start: 02/27/25 10:31 Freq: Status: Active Protocol: Activity Type Activity Date Activity User E-sign Co-sign Detail Recorded Client Recorded Date Recorded By Document 02/27/25 10:32 NE [id number] 02/27/25 10:44 MT Document 03/06/25 10:36 CP [id number] 03/06/25 10:41 CP 02/27/25 03/06/25 10:32 10:36 Wound Center Nurse 1 RIGHT QUINN CLUSTER -Current Size (cm) - Length 0 -Current Size (cm) - Width 0 -Current Size (cm) - Depth 0 -Total Square Cm 0 5-left 2nd toe -Current Size (cm) - Length 0.1 -Current Size (cm) - Width 0.1 -Current Size (cm) - Depth 0.1 -Total Square Cm 0.01 -Date of Last Picture (Recall this 02/27/25 field) -Photo Taken Yes -Tunneling No -Undermining/Tunneling No -Circular Undermining No -Exudate Amt Small -Exudate Type Serosanguineous -Wound Margin Flat & Intact -Granulation Amt Large (67-100%) -Granulation Quality Pale,[place] -Slough/Fibrin No -Necrosis Amt Small (1-33%) -Necrotic Tissue Type Adherent Slough -Texture (Lesvia-wound Skin Appearance) Assessed -Moisture (Lesvia-wound Skin Appearance) Assessed -Color (Lesvia-wound Skin Appearance) Assessed -Temperature (Lesvia-wound Skin No Abnormality Appearance) (Pt Warm) -Tenderness on Palpation (Lesvia-wound No Skin Appearance) -Ulcer Cleansing Soap and Water -Foul Odor after Cleansing No -Anesthetic Used 5% Lidocaine Gel 4.R heel medial -Current Size (cm) - Length 0.1 0.1 -Current Size (cm) - Width 0.1 0.1 -Current Size (cm) - Depth 0.1 0.1 -Total Square Cm 0.01 0.01 -Date of Last Picture (Recall this 02/27/25 field) -Photo Taken Yes -Tunneling No -Undermining/Tunneling No -Circular Undermining No -Exudate Amt Small -Exudate Type Serosanguineous -Wound Margin Flat & Intact -Granulation Amt Large (67-100%) -Granulation Quality Pale,[place] -Necrosis Amt Small (1-33%) -Necrotic Tissue Type Adherent Slough -Texture (Lesvia-wound Skin Appearance) Assessed -Moisture (Lesvia-wound Skin Appearance) Assessed -Color (Lesvia-wound Skin Appearance) Assessed -Temperature (Lesvia-wound Skin No Abnormality Appearance) (Pt Warm) -Tenderness on Palpation (Lesvia-wound No Skin Appearance) -Ulcer Cleansing Soap and Water -Foul Odor after Cleansing No -Anesthetic Used 5% Lidocaine Gel Right Calf (cm) 41.5 Right Ankle (cm) 29 WC - Nurse 2 - General Ulcer CM Notes Start: 02/27/25 10:31 Freq: Status: Active Protocol: Activity Type Activity Date Activity User E-sign Co-sign Detail Recorded Client Recorded Date Recorded By Document 02/27/25 10:50 ÁNGEL [id number] 02/27/25 10:53 Document 03/06/25 10:53 ÁNGEL [id number] 03/06/25 10:54 02/27/25 03/06/25 10:50 10:53 Wound Center Nurse 2 RIGHT QUINN CLUSTER -Time 10:52 -Correct Patient Yes Yes -Correct Side, Site, Position Yes No -Correct Procedure Yes No -Procedure Performed Yes No -Type of Procedure Debridement -Clinical Debridement Subcutaneous -Tissue Removed Subcutaneous -Post Debridement (cm) - Length 2.4 0 -Post Debridement (cm) - Width 2.1 0 -Post Debridement (cm) - Depth 0.1 0 -Total Square (Post) (cm) 5.04 0 -Area of Debridement (cm) - Length 2.4 0 -Area of Debridement (cm) - Width 2.1 0 -Total Square (Area) (cm) 5.04 0 -Tunneling No -Undermining/Tunneling No -Circular Undermining No -Wound/Ulcer Outcome Not Healed Healed- Epithelialized -Ulcer Cleansing Rinsed/ Irrigated with Saline -Foul Odor after Cleansing No -Bioengineered Tissue No -Bleeding Controlled with Pressure -Treatment Response Procedure Tolerated Well -Offloading No -Debridement - Subq, 1st 20sq cm Yes 5-left 2nd toe -Correct Patient Yes -Correct Side, Site, Position No -Correct Procedure No -Procedure Performed No -Post Debridement (cm) - Length 0 -Post Debridement (cm) - Width 0 -Post Debridement (cm) - Depth 0 -Total Square (Post) (cm) 0 -Area of Debridement (cm) - Length 0 -Area of Debridement (cm) - Width 0 -Total Square (Area) (cm) 0 -Wound/Ulcer Outcome Healed- Epithelialized 4.R heel medial -Correct Patient Yes Yes -Correct Side, Site, Position No No -Correct Procedure No No -Procedure Performed No No -Post Debridement (cm) - Length 0 0.1 -Post Debridement (cm) - Width 0 0.1 -Post Debridement (cm) - Depth 0 0.1 -Total Square (Post) (cm) 0 0.01 -Area of Debridement (cm) - Length 0 0.1 -Area of Debridement (cm) - Width 0 0.1 -Total Square (Area) (cm) 0 0.01 -Wound/Ulcer Outcome Healed- Not Healed Epithelialized Pain Scale: 0-10 Numeric Is Patient Pain Free? Yes Yes WC - Nurse 3 - General Ulcer D/C NN Start: 02/27/25 10:31 Freq: Status: Active Protocol: Activity Type Activity Date Activity User E-sign Co-sign Detail Recorded Client Recorded Date Recorded By Document 02/27/25 11:13 NE [id number] 02/27/25 11:20 NE Document 03/06/25 11:08 [id number] 03/06/25 11:08 02/27/25 03/06/25 11:13 11:08 Wound Care Center Nurse 3 RIGHT QUINN CLUSTER -Foul Odor after Cleansing No -Negative Pressure Wound Therapy N/A -Other Dressing BACITRACIN AND BETADINE -Primary Dressing Covered/Secured with Dry Gauze & Roll Gauze, Secured with Tape BLE -Lotion applied to leg before Yes compression wrap -Tubular Bandage Double Layer Double Layer -Size of Tubigrip Used Size E Size E -Size E ($) 2 2 Pain Scale: 0-10 Numeric Is Patient Pain Free? Yes Yes WC - Visit Discharge Discharge Condition Stable Ambulatory Status Wheelchair Transportation Private Auto Assessment/Plan Assessment/Plan (1) Non-pressure chronic ulcer of other part of right lower leg with fat layer exposed: CODE(S): L97.812 - Non-pressure chronic ulcer of other part of right lowerleg with fat layer exposed PLAN: Patient was examined and evaluated. All findings were discussed with the patient. All questions were answered to the patient's satisfaction. After exam the patient's full-thickness wound to the right heel measures 0.1 x 0.1 x 0.1 cm. No debridement was done at this time. The right leg is now healed. Patient will continue physical therapy with surgical shoe and diabetic shoe donned to left lower extremity. Recommended the patient follow-up with [facility] shoe store for extra-depth shoes to be sized and fitted to his specifications she is understanding of. Follow-up at the wound care center with Dr. Cerda in 1 week. (2) Non-pressure chronic ulcer of other part of right foot with fat layer exposed: CODE(S): L97.512 - Non-pressure chronic ulcer of other part of right foot with fat layer exposed 03/06/25 1255 Cosigner Signature (if applicable): CC: ~ Signed [facility]09-10-2025 Progress note Author León Cerda [facility] Note Date/Time February 27, 2025 11:08am [facility] [address] [place] [address] Progress Note - Wound Care 02/27/25 1105 MR#: [id number] Acct: [id number] Name: LANI ZARAGOZA Rep #:[id number] : 1955 69 From: León Pompa PM PCP: Dr. Bernabe Reese MD Status:RE G RCR Location: History of Present Illness Date of Service: 02/27/25 Chief Complaint: Diabetic right heel ulceration History of Wound: This is a 69-year-old obese, diabetic male patient whose care has been assumed from Dr. Ramon Garcia, who is departing from our staff. The patient has a chronic ulceration on his right heel, associated with poorly controlled type 2 diabetes mellitus and diabetic polyneuropathy. The patient suffers from multiple other pre-existing medical problems, which are documented herein. The patient's most recent management has been by means of serial debridements, with an EpiFix allograft having been applied at the patient's prior visit on December 11, 2024. Offloading measures and total contact casting have also been a recent cornerstone of the patient's management. 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 Progress of Wound: Right lower extremity healed heel wound with breakdown of skin secondary to venous insufficiency of the right leg. Subjective Subjective Patient is a 69-year-old diabetic male presenting to clinic today follow-up evaluation of full-thickness wound that is healed secondary to application of amniotic skin graft substitute to the right lower extremity. Patient has some new wounds on the right leg secondary to venous insufficiency. He was being treated with Haider wrap's at that facility. He is working with physical therapy and walked 70 steps the other day. His goal is to be walking with a cane and then he will be discharged from the facility. He denies trauma. Denies constitutional symptoms. No other pedal complaints at this time. Objective Data Objective Data Vital Signs: Vital Signs Temp Pulse Resp BP O2 Del Method 98 F 83 18 109/64 Room Air 02/27/25 10:32 02/27/25 10:32 02/27/25 10:32 02/27/25 10:32 02/27/25 10:32 Oxygen Delivery Method Room Air Lab / Micro Data Micro: Microbiology 01/02/25 14:14 Ulcer, Decubitus - Toe Gram Stain - Final 01/02/25 14:14 Ulcer, Decubitus - Toe Wound Culture - Final Meth. resistant Staph. aureus 01/02/25 14:14 Ulcer, Decubitus - Toe Anaerobic Culture - Final No anaerobic bacteria isolated. Physical Exam Narrative Vascular: DP and PT pulse are palpable. CFT is brisk. Skin temperature is warmto warm from proximal ankles to distal digit bilateral. Nonpitting edema with hemosiderin deposit appreciated bilateral extremity. No erythema bilateral. Neurological:. Light touch is intact. Protective station is diminished. Patient does not respond to painful stimuli. Dermatological: Full-thickness wound to the right heel shows evidence of callus and is healed at this time. There is new evidence of cluster wounds to the anterior right leg measuring 2.4 x 2.1 x 0.1 cm. All wound base is granular with no sign of infection. Excisional debridement down to and including subcutaneous tissue with a number 3mm dermal curette to the anterior right leg full-thickness wound cluster done without incident. Predebridement measurement was 2.0 x 2.0 x 0.1 cm. Postdebridement measurement is 2.4 x 2.1 x 0.1 cm. Musculoskeletal: No pain to palpation to full-thickness wound bilateral. No pain with calf pressure. Debridement Note Debridement Note Debridement Free Text: Excisional debridement down to and including subcutaneoustissue with a number 3 mm dermal curette to the anterior right leg full-thickness wound cluster done without incident. Predebridement measurement was 2.0 x 2.0 x 0.1 cm. Postdebridement measurement is 2.4 x 2.1 x 0.1 cm. Post-Debridement Measurements and Additional Note: Post-Debridement Measurements/Treatment - Nurse 1 - General Ulcer Assessment Start: 02/27/25 10:31 Freq: Status: Active Protocol: MARGY Activity Type Activity Date Activity User E-sign Co-sign Detail Recorded Client Recorded Date Recorded By Document 02/27/25 10:32 NE [id number] 02/27/25 10:44 NE 02/27/25 10:32 - Today's Visit Information Type of service Follow-up Visit (Physician/AERIAL SURVEY TECHNICIAN ) Arrival Mode Ambulatory Accompanied by SELF Patient Identification Verified (Name & Yes ) Safety Precautions Fall Prevention Vital Signs Temperature (97.8 F-99.1 F) 98 F Temperature Source Temporal Pulse Rate (60-100) 83 Pulse Location Monitor Respiratory Rate (12-18) 18 Respiratory rate source Observation Oxygen Delivery Method Room Air Blood Pressure (90/60-120/80) 109/64 Blood Pressure Mean (mm Hg) 79 Source Monitor Position Sitting Blood Pressure Location Right Arm History Since Last Visit- (Skip if this is Patient's initial visit) Has dressing in place as prescribed Yes Has compression in place as prescribed Yes Has offloadiing in place as prescribed Yes Experienced any changes in pain level or Yes management Left Footwear Regular Shoe Right Footwear Regular Shoe Pain Scale: 0-10 Numeric Is Patient Pain Free? Yes WC - Nurse 1 - General Ulcer Measurement Start: 02/27/25 10:31 Freq: Status: Active Protocol: Activity Type Activity Date Activity User E-sign Co-sign Detail Recorded Client Recorded Date Recorded By Document 02/27/25 10:32 NE [id number] 02/27/25 10:44 NE 02/27/25 10:32 Wound Center Nurse 1 5-left 2nd toe -Current Size (cm) - Length 0.1 -Current Size (cm) - Width 0.1 -Current Size (cm) - Depth 0.1 -Total Square Cm 0.01 -Date of Last Picture (Recall this 02/27/25 field) -Photo Taken Yes -Tunneling No -Undermining/Tunneling No -Circular Undermining No -Exudate Amt Small -Exudate Type Serosanguineous -Wound Margin Flat & Intact -Granulation Amt Large (67-100%) -Granulation Quality Pale,[place] -Slough/Fibrin No -Necrosis Amt Small (1-33%) -Necrotic Tissue Type Adherent Slough -Texture (Lesvia-wound Skin Appearance) Assessed -Moisture (Lesvia-wound Skin Appearance) Assessed -Color (Lesvia-wound Skin Appearance) Assessed -Temperature (Lesvia-wound Skin No Abnormality Appearance) (Pt Warm) -Tenderness on Palpation (Lesvia-wound No Skin Appearance) -Ulcer Cleansing Soap and Water -Foul Odor after Cleansing No -Anesthetic Used 5% Lidocaine Gel 4.R heel medial -Current Size (cm) - Length 0.1 -Current Size (cm) - Width 0.1 -Current Size (cm) - Depth 0.1 -Total Square Cm 0.01 -Date of Last Picture (Recall this 02/27/25 field) -Photo Taken Yes -Tunneling No -Undermining/Tunneling No -Circular Undermining No -Exudate Amt Small -Exudate Type Serosanguineous -Wound Margin Flat & Intact -Granulation Amt Large (67-100%) -Granulation Quality Pale,[place] -Necrosis Amt Small (1-33%) -Necrotic Tissue Type Adherent Slough -Texture (Lesvia-wound Skin Appearance) Assessed -Moisture (Lesvia-wound Skin Appearance) Assessed -Color (Lesvia-wound Skin Appearance) Assessed -Temperature (Lesvia-wound Skin No Abnormality Appearance) (Pt Warm) -Tenderness on Palpation (Lesvia-wound No Skin Appearance) -Ulcer Cleansing Soap and Water -Foul Odor after Cleansing No -Anesthetic Used 5% Lidocaine Gel WC - Nurse 2 - General Ulcer CM Notes Start: 02/27/25 10:31 Freq: Status: Active Protocol: Activity Type Activity Date Activity User E-sign Co-sign Detail Recorded Client Recorded Date Recorded By Document 02/27/25 10:50 ÁNGEL [id number] 02/27/25 10:53 ÁNGEL 02/27/25 10:50 Wound Center Nurse 2 5-left 2nd toe -Correct Patient Yes -Correct Side, Site, Position No -Correct Procedure No -Procedure Performed No -Post Debridement (cm) - Length 0 -Post Debridement (cm) - Width 0 -Post Debridement (cm) - Depth 0 -Total Square (Post) (cm) 0 -Area of Debridement (cm) - Length 0 -Area of Debridement (cm) - Width 0 -Total Square (Area) (cm) 0 -Wound/Ulcer Outcome Healed- Epithelialized RIGHT QUINN CLUSTER -Time 10:52 -Correct Patient Yes -Correct Side, Site, Position Yes -Correct Procedure Yes -Procedure Performed Yes -Type of Procedure Debridement -Clinical Debridement Subcutaneous -Tissue Removed Subcutaneous -Post Debridement (cm) - Length 2.4 -Post Debridement (cm) - Width 2.1 -Post Debridement (cm) - Depth 0.1 -Total Square (Post) (cm) 5.04 -Area of Debridement (cm) - Length 2.4 -Area of Debridement (cm) - Width 2.1 -Total Square (Area) (cm) 5.04 -Tunneling No -Undermining/Tunneling No -Circular Undermining No -Wound/Ulcer Outcome Not Healed -Ulcer Cleansing Rinsed/ Irrigated with Saline -Foul Odor after Cleansing No -Bioengineered Tissue No -Bleeding Controlled with Pressure -Treatment Response Procedure Tolerated Well -Offloading No -Debridement - Subq, 1st 20sq cm Yes 4.R heel medial -Correct Patient Yes -Correct Side, Site, Position No -Correct Procedure No -Procedure Performed No -Post Debridement (cm) - Length 0 -Post Debridement (cm) - Width 0 -Post Debridement (cm) - Depth 0 -Total Square (Post) (cm) 0 -Area of Debridement (cm) - Length 0 -Area of Debridement (cm) - Width 0 -Total Square (Area) (cm) 0 -Wound/Ulcer Outcome Healed- Epithelialized Pain Scale: 0-10 Numeric Is Patient Pain Free? Yes Assessment/Plan Assessment/Plan (1) Non-pressure chronic ulcer of other part of right lower leg with fat layer exposed: CODE(S): L97.812 - Non-pressure chronic ulcer of other part of right lowerleg with fat layer exposed PLAN: Patient was examined and evaluated. All findings were discussed with the patient. All questions were answered to the patient's satisfaction. After exam the patient's heel wound shows evidence of callus and we will not debrided during today's visit. Will focus on the anterior right leg multiple full- thickness wound cluster secondary to venous insufficiency. Excisional debridement down to and including subcutaneous tissue with a number 3mm dermal curette to the anterior right leg full-thickness wound cluster done without incident. Predebridement measurement was 2.0 x 2.0 x 0.1 cm. Postdebridement measurement is 2.4 x 2.1 x 0.1 cm. The right leg was cleaned and patted dry. Triple antibiotic, dry sterile dressing and Tubigrip was applied and double layer to the right lower extremity followed by Betadine to the right heel. Patient will continue to practice strict blood sugar control. Patient will continue to walk and practice walking with physical therapy so thathe can advance to a cane and then be discharged from the facility. I educated the patient that he needs to reach out to social work at his facilityto try to get diabetic shoes from either [employer] or supplier that will dispense shoes while in the facility. Follow-up at the wound care center with Dr. Cerda in 1 week. (2) Non-pressure chronic ulcer of other part of right foot with fat layer exposed: CODE(S): L97.512 - Non-pressure chronic ulcer of other part of right foot with fat layer exposed PLAN: Patient was examined and evaluated. All findings were discussed with the patient. All questions were answered to the patient's satisfaction. Excisional debridement down to and including subcutaneous tissue with a number 3mm dermal curette to the right heel full-thickness wound done without incident. Predebridement measurements callus. Postdebridement measurement is 0.4 x 0.6 x 0.1 cm. The right heel was wiped clean and patted dry. Moist Roseanna followed by dry sterile dressing and Haider wrap was donned to the right lower extremity followed by surgical shoe. Patient will have the custodial facility change his dressing every other day as written. Patient is to offload his left heel and to be weightbearing as tolerated as wellas working with physical therapy as tolerated. Follow-up at the wound care center with Dr. Cerda in 2 week 02/27/25 1108 <Electronically signed by León Cerda DPM> Cosigner Signature (if applicable): CC: ~ Signed [facility] Work Phone: [phone]) 940-558009-10-2025 Progress note [facility] [address] [place] [address] Progress Note - Wound Care 02/27/25 1105 MR#: [id number] Acct: [id number] Name: LANI ZARAGOZA Rep #:[id number] : 1955 69 From: León GRAY PCP: Dr. Bernabe Reese MD Status:RE G RCR Location: History of Present Illness Date of Service: 02/27/25 Chief Complaint: Diabetic right heel ulceration History of Wound: This is a 69-year-old obese, diabetic male patient whose care has been assumed from Dr. Ramon Garcia, who is departing from our staff. The patient has a chronic ulceration on his right heel, associated with poorly controlled type 2 diabetes mellitus and diabetic polyneuropathy. The patient suffers from multiple other pre-existing medical problems, which are documented herein. The patient's most recent management has been by means of serial debridements, with an EpiFix allograft having been applied at the patient's prior visit on December 11, 2024. Offloading measures and totalcontact casting have also been a recent cornerstone of the patient's management. 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 Progress of Wound: Right lower extremity healed heel wound with breakdown of skin secondary to venous insufficiency ofthe right leg. Subjective Subjective Patient is a 69-year-old diabetic male presenting to clinic today follow-up evaluation of full-thickness wound that is healed secondary to application of amniotic skin graft substitute to the right lower extremity. Patient has some new wounds on the right leg secondary to venous insufficiency. He was being treated with Haider wrap's at that facility. He is working with physical therapy and walked 70steps the other day. His goal is to be walking with a cane and then he will be discharged from the facility. He denies trauma. Denies constitutional symptoms. No other pedal complaints at this time. Objective Data Objective Data Vital Signs: Vital Signs Temp Pulse Resp BP O2 Del Method 98 F 83 18 109/64 Room Air 02/27/25 10:32 02/27/25 10:32 02/27/25 10:32 02/27/25 10:32 02/27/25 10:32 Oxygen Delivery Method Room Air Lab / Micro Data Micro: Microbiology 01/02/25 14:14 Ulcer, Decubitus - Toe Gram Stain - Final 01/02/25 14:14 Ulcer, Decubitus - Toe Wound Culture - Final Meth. resistant Staph. aureus 01/02/25 14:14 Ulcer, Decubitus - Toe Anaerobic Culture - Final No anaerobic bacteria isolated. Physical Exam Narrative Vascular: DP and PT pulse are palpable. CFT is brisk. Skin temperature is warmto warm from proximalankles to distal digit bilateral. Nonpitting edema with hemosiderin deposit appreciated bilateral extremity. No erythema bilateral. Neurological:. Light touch is intact. Protective station is diminished. Patient does not respond topainful stimuli. Dermatological: Full-thickness wound to the right heel shows evidence of callus and is healed at this time. There is new evidence of cluster wounds to the anterior right leg measuring 2.4 x 2.1 x 0.1cm. All wound base is granular with no sign of infection. Excisional debridement down to and including subcutaneous tissue with a number 3mm dermal curette to the anterior right leg full-thickness wound cluster done without incident. Predebridement measurement was 2.0 x 2.0 x 0.1 cm. Postdebridement measurement is 2.4 x 2.1 x 0.1 cm. Musculoskeletal: No pain to palpation to full-thickness wound bilateral. No pain with calf pressure. Debridement Note Debridement Note Debridement Free Text: Excisional debridement down to and including subcutaneoustissue with a number 3 mm dermal curette to the anterior right leg full-thickness wound cluster done without incident. Predebridement measurement was 2.0 x 2.0 x 0.1 cm. Postdebridement measurement is 2.4 x 2.1 x 0.1 cm. Post-Debridement Measurements and Additional Note: Post-Debridement Measurements/Treatment - Nurse 1 - General Ulcer Assessment Start: 02/27/25 10:31 Freq: Status: Active Protocol: MARGY Activity Type Activity Date Activity User E-sign Co-sign Detail Recorded Client Recorded Date Recorded By Document 02/27/25 10:32 NE [id number] 02/27/25 10:44 NE 02/27/25 10:32 - Today's Visit Information Type of service Follow-up Visit (Physician/AERIAL SURVEY TECHNICIAN ) Arrival Mode Ambulatory Accompanied by SELF Patient Identification Verified (Name & Yes ) Safety Precautions Fall Prevention Vital Signs Temperature (97.8 F-99.1 F) 98 F Temperature Source Temporal Pulse Rate (60-100) 83 Pulse Location Monitor Respiratory Rate (12-18) 18 Respiratory rate source Observation Oxygen Delivery Method Room Air Blood Pressure (90/60-120/80) 109/64 Blood Pressure Mean (mm Hg) 79 Source Monitor Position Sitting Blood Pressure Location Right Arm History Since Last Visit- (Skip if this is Patient's initial visit) Has dressing in place as prescribed Yes Has compression in place as prescribed Yes Has offloadiing in place as prescribed Yes Experienced any changes in pain level or Yes management Left Footwear Regular Shoe Right Footwear Regular Shoe Pain Scale: 0-10 Numeric Is Patient Pain Free? Yes Shashank Nurse 1 - General Ulcer Measurement Start: 02/27/25 10:31 Freq: Status: Active Protocol: Activity Type Activity Date Activity User E-sign Co-sign Detail Recorded Client Recorded Date Recorded By Document 02/27/25 10:32 NE [id number] 02/27/25 10:44 NE 02/27/25 10:32 Wound Center Nurse 1 5-left 2nd toe -Current Size (cm) - Length 0.1 -Current Size (cm) - Width 0.1 -Current Size (cm) - Depth 0.1 -Total Square Cm 0.01 -Date of Last Picture (Recall this 02/27/25 field) -Photo Taken Yes -Tunneling No -Undermining/Tunneling No -Circular Undermining No -Exudate Amt Small -Exudate Type Serosanguineous -Wound Margin Flat & Intact -Granulation Amt Large (67-100%) -Granulation Quality Pale,[place] -Slough/Fibrin No -Necrosis Amt Small (1-33%) -Necrotic Tissue Type Adherent Slough -Texture (Lesvia-wound Skin Appearance) Assessed -Moisture (Lesvia-wound Skin Appearance) Assessed -Color (Lesvia-wound Skin Appearance) Assessed -Temperature (Lesvia-wound Skin No Abnormality Appearance) (Pt Warm) -Tenderness on Palpation (Lesvia-wound No Skin Appearance) -Ulcer Cleansing Soap and Water -Foul Odor after Cleansing No -Anesthetic Used 5% Lidocaine Gel 4.R heel medial -Current Size (cm) - Length 0.1 -Current Size (cm) - Width 0.1 -Current Size (cm) - Depth 0.1 -Total Square Cm 0.01 -Date of Last Picture (Recall this 02/27/25 field) -Photo Taken Yes -Tunneling No -Undermining/Tunneling No -Circular Undermining No -Exudate Amt Small -Exudate Type Serosanguineous -Wound Margin Flat & Intact -Granulation Amt Large (67-100%) -Granulation Quality Pale,[place] -Necrosis Amt Small (1-33%) -Necrotic Tissue Type Adherent Slough -Texture (Lesvia-wound Skin Appearance) Assessed -Moisture (Lesvia-wound Skin Appearance) Assessed -Color (Lesvia-wound Skin Appearance) Assessed -Temperature (Lesvia-wound Skin No Abnormality Appearance) (Pt Warm) -Tenderness on Palpation (Lesvia-wound No Skin Appearance) -Ulcer Cleansing Soap and Water -Foul Odor after Cleansing No -Anesthetic Used 5% Lidocaine Gel WC - Nurse 2 - General Ulcer CM Notes Start: 02/27/25 10:31 Freq: Status: Active Protocol: Activity Type Activity Date Activity User E-sign Co-sign Detail Recorded Client Recorded Date Recorded By Document 02/27/25 10:50 ÁNGEL [id number] 02/27/25 10:53 ÁNGEL 02/27/25 10:50 Wound Center Nurse 2 5-left 2nd toe -Correct Patient Yes -Correct Side, Site, Position No -Correct Procedure No -Procedure Performed No -Post Debridement (cm) - Length 0 -Post Debridement (cm) - Width 0 -Post Debridement (cm) - Depth 0 -Total Square (Post) (cm) 0 -Area of Debridement (cm) - Length 0 -Area of Debridement (cm) - Width 0 -Total Square (Area) (cm) 0 -Wound/Ulcer Outcome Healed- Epithelialized RIGHT QUINN CLUSTER -Time 10:52 -Correct Patient Yes -Correct Side, Site, Position Yes -Correct Procedure Yes -Procedure Performed Yes -Type of Procedure Debridement -Clinical Debridement Subcutaneous -Tissue Removed Subcutaneous -Post Debridement (cm) - Length 2.4 -Post Debridement (cm) - Width 2.1 -Post Debridement (cm) - Depth 0.1 -Total Square (Post) (cm) 5.04 -Area of Debridement (cm) - Length 2.4 -Area of Debridement (cm) - Width 2.1 -Total Square (Area) (cm) 5.04 -Tunneling No -Undermining/Tunneling No -Circular Undermining No -Wound/Ulcer Outcome Not Healed -Ulcer Cleansing Rinsed/ Irrigated with Saline -Foul Odor after Cleansing No -Bioengineered Tissue No -Bleeding Controlled with Pressure -Treatment Response Procedure Tolerated Well -Offloading No -Debridement - Subq, 1st 20sq cm Yes 4.R heel medial -Correct Patient Yes -Correct Side, Site, Position No -Correct Procedure No -Procedure Performed No -Post Debridement (cm) - Length 0 -Post Debridement (cm) - Width 0 -Post Debridement (cm) - Depth 0 -Total Square (Post) (cm) 0 -Area of Debridement (cm) - Length 0 -Area of Debridement (cm) - Width 0 -Total Square (Area) (cm) 0 -Wound/Ulcer Outcome Healed- Epithelialized Pain Scale: 0-10 Numeric Is Patient Pain Free? Yes Assessment/Plan Assessment/Plan (1) Non-pressure chronic ulcer of other part of right lower leg with fat layer exposed: CODE(S): L97.812 - Non-pressure chronic ulcer of other part of right lowerleg with fat layer exposed PLAN: Patient was examined and evaluated. All findings were discussed with the patient. All questions were answered to the patient's satisfaction. After exam the patient's heel wound shows evidence of callus and we will not debrided during today's visit. Will focus on the anterior right leg multiple full-thickness wound cluster secondary to venous insufficiency. Excisional debridement down to and including subcutaneous tissue with a number 3mm dermal curette to the anterior right leg full-thickness wound cluster done without incident. Predebridement measurement was 2.0 x 2.0 x 0.1 cm. Postdebridement measurement is 2.4 x 2.1 x 0.1 cm. The right leg was cleaned and patted dry. Triple antibiotic, dry sterile dressing and Tubigrip was applied and double layer to the right lower extremity followed by Betadine to the right heel. Patient will continue to practice strict blood sugar control. Patient will continue to walk and practice walking with physical therapy so thathe can advance to [facility] and then be discharged from the facility. I educated the patient that he needs to reach out to social work at his facilityto try to get diabetic shoes from either [employer] or supplier that will dispense shoes while in the facility. Follow-up at the wound care center with Dr. Cerda in 1 week. (2) Non-pressure chronic ulcer of other part of right foot with fat layer exposed: CODE(S): L97.512 - Non-pressure chronic ulcer of other part of right foot with fat layer exposed PLAN: Patient was examined and evaluated. All findings were discussed with the patient. All questions were answered to the patient's satisfaction. Excisional debridement down to and including subcutaneous tissue with a number 3mm dermal curette to the right heel full-thickness wound done without incident. Predebridement measurements callus. Postdebridement measurement is 0.4 x 0.6 x 0.1 cm. The right heel was wiped clean and patted dry. MoistPrisma followed by dry sterile dressing and Haider wrap was donned to the right lower extremity followed by surgical shoe. Patient will have the custodial facility change his dressing every other day as written. Patient is to offload his left heel and to be weightbearing as tolerated as wellas working with physical therapy as tolerated. Follow-up at the wound care center with Dr. Cerda in 2 week 02/27/25 1108 Cosigner Signature (if applicable): CC: ~ Signed [facility]08-27-2025 Progress note Author León Cerda [facility] Note Date/Time February 13, 2025 12 :53pm [facility] [address] [place] [address] Progress Note - Wound Care 02/13/25 1251 MR#: [id number] Acct: [id number] Name: LANI ZARAGOZA Rep #:[id number] : 1955 69 From: León GRAY PCP: Dr. Bernabe Reese MD Status:RE G RCR Location: History of Present Illness Date of Service: 02/13/25 Chief Complaint: Diabetic right heel ulceration History of Wound: This is a 69-year-old obese, diabetic male patient whose care has been assumed from Dr. Ramon Garcia, who is departing from our staff. The patient has a chronic ulceration on his right heel, associated with poorly controlled type 2 diabetes mellitus and diabetic polyneuropathy. The patient suffers from multiple other pre-existing medical problems, which are documented herein. The patient's most recent management has been by means of serial debridements, with an EpiFix allograft having been applied at the patient's prior visit on December 11, 2024. Offloading measures and total contact casting have also been a recent cornerstone of the patient's management. 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 Progress of Wound: Healed full-thickness wounds to the left foot. Stable slow healing full- thickness wound right heel with amniotic skin graft substitute and total contactcast. Subjective Subjective Patient is a 69-year-old diabetic male presenting to wound care center today forfollow-up evaluation of full-thickness wound amniotic skin graft substitute to the right heel. Patient has been compliant with weightbearing as tolerated in the total contact cast with walking shoe. He is hoping that the wound is healedat this time. He has been participating more in physical therapy admits no painto the right lower extremity. He denies trauma. Denies constitutional symptoms. No other pedal complaints at this time. Objective Data Objective Data Vital Signs: Vital Signs Temp Pulse Resp BP O2 Del Method 96.8 F L 70 18 116/63 Room Air 02/13/25 10:29 02/13/25 10:29 02/13/25 10:29 02/13/25 10:29 02/13/25 10:29 Oxygen Delivery Method Room Air Lab / Micro Data Micro: Microbiology 01/02/25 14:14 Ulcer, Decubitus - Toe Gram Stain - Final 01/02/25 14:14 Ulcer, Decubitus - Toe Wound Culture - Final Meth. resistant Staph. aureus 01/02/25 14:14 Ulcer, Decubitus - Toe Anaerobic Culture - Final No anaerobic bacteria isolated. Physical Exam Narrative Vascular: DP and PT pulse are palpable. CFT is brisk. Skin temperature is warmto warm from proximal ankles to distal digit bilateral. Nonpitting edema with hemosiderin deposit appreciated bilateral extremity. No erythema bilateral. Neurological:. Light touch is intact. Protective station is diminished. Patient does not respond to painful stimuli. Dermatological: Evidence of full-thickness wound to the right heel measuring 0.4x 0.6 x 0.1 cm. Wound base is granular with no sign of infection. Excisional debridement down to and including subcutaneous tissue with a number 3mm dermal curette to the right heel full-thickness wound done without incident. Predebridement measurements callus. Postdebridement measurement is 0.4 x 0.6 x 0.1 cm. Musculoskeletal: No pain to palpation to full-thickness wound bilateral. No pain with calf pressure. Debridement Note Debridement Note Debridement Free Text: Excisional debridement down to and including subcutaneoustissue with a number 3 mm dermal curette to the right heel full- thickness wound done without incident. Predebridement measurements callus. Postdebridement measurement is 0.4 x 0.6 x 0.1 cm. Post-Debridement Measurements and Additional Note: Post-Debridement Measurements/Treatment - Nurse 1 - General Ulcer Assessment Start: 01/23/25 10:30 Freq: Status: Active Protocol: .LOWRISSA Activity Type Activity Date Activity User E-sign Co-sign Detail Recorded Client Recorded Date Recorded By Document 01/23/25 10:30 [id number] 01/23/25 10:44 Document 01/30/25 10:32 [id number] 01/30/25 10:34 Document 02/06/25 10:28 KW [id number] 02/06/25 10:45 Document 02/13/25 10:29 KW [id number] 02/13/25 10:42 KW 01/23/25 01/30/25 02/06/25 10:30 10:32 10:28 - Today's Visit Information Type of service Follow-up Visit Follow-up Visit Follow-up Visit (Physician/AERIAL SURVEY TECHNICIAN (Physician/AERIAL SURVEY TECHNICIAN (Physician/AERIAL SURVEY TECHNICIAN ) ) ) Arrival Mode Walker, Wheelchair Wheelchair Wheelchair Transfer Assistance Manual None Patient Identification Verified (Name & Yes Yes Yes ) Finger Stick Blood Sugar(mg/dl) (if indicated): Blood Sugar Vital Signs Temperature (97.8 F-99.1 F) 96.5 F L 97.2 F L 96.9 F L Temperature Source Temporal Temporal Temporal Pulse Rate (60-100) 65 62 46 L Pulse Location Monitor Monitor Monitor Respiratory Rate (12-18) 16 16 18 Respiratory rate source Observation Monitor Observation Oxygen Delivery Method Room Air Room Air Room Air Blood Pressure (90/60-120/80) 122/65 H 109/55 L 112/44 L Blood Pressure Mean (mm Hg) 84 73 66 Source Monitor Monitor Monitor Position Sitting Sitting Standing Blood Pressure Location Right Arm Right Arm Left Arm History Since Last Visit- [...] Has compression in place as prescribed N/A Yes N/A Has offloadiing in place as prescribed Yes Yes Yes Experienced any changes in pain level or No No No management Left Footwear Total Contact Cast Right Footwear Total Contact Total Contact Regular Shoe Cast Cast Pain Scale: 0-10 Numeric Is Patient Pain Free? Yes Yes Yes 02/13/25 10:29 - Today's Visit Information Type of service Follow-up Visit (Physician/AERIAL SURVEY TECHNICIAN ) Arrival Mode Wheelchair Transfer Assistance Patient Identification Verified (Name & Yes ) Finger Stick Blood Sugar(mg/dl) (if 126 indicated): Blood Sugar Stated by Patient Vital Signs Temperature (97.8 F-99.1 F) 96.8 F L Temperature Source Temporal Pulse Rate (60-100) 70 Pulse Location Monitor Respiratory Rate (12-18) 18 Respiratory rate source Observation Oxygen Delivery Method Room Air Blood Pressure (90/60-120/80) 116/63 Blood Pressure Mean (mm Hg) 80 Source Monitor Position Sitting Blood Pressure Location [...] management Left Footwear Regular Shoe Right Footwear Total Contact Cast Pain Scale: 0-10 Numeric Is Patient Pain Free? Yes WC - Nurse 1 - General Ulcer Measurement Start: 01/23/25 10:30 Freq: Status: Active Protocol: Activity Type Activity Date Activity User E-sign Co-sign Detail Recorded Client Recorded Date Recorded By Document 01/23/25 10:30 GM [id number] 01/23/25 10:44 GM Document 01/30/25 10:32 GM [id number] 01/30/25 10:34 GM Document 02/06/25 10:28 KW [id number] 02/06/25 10:45 KW Document 02/13/25 10:29 KW [id number] 02/13/25 10:42 KW 01/23/25 01/30/25 02/06/25 10:30 10:32 10:28 Wound Center Nurse 1 #6 LT HEEL -Combined with other wound No -Current Size (cm) - Length 1.0 -Current Size (cm) - Width 0.5 -Current Size (cm) - Depth 0.1 -Total Square Cm 0.50 -Date of Last Picture (Recall this 01/23/25 field) -Photo Taken Yes -Epithelialization Small 1-33% -Tunneling No -Undermining/Tunneling No -Circular Undermining No -Exudate Amt None Present -Wound Margin Distinct, Outline Attached -Granulation Amt None Present (0 %) -Slough/Fibrin Yes -Necrosis Amt Small (1-33%) -Necrotic Tissue Type Eschar -Texture (Lesvia-wound Skin Appearance) Assessed -Moisture (Lesvia-wound Skin Appearance) Assessed -Color (Lesvia-wound Skin Appearance) Assessed -Temperature (Lesvia-wound Skin No Abnormality Appearance) (Pt Warm) -Ulcer Cleansing Soap and Water -Foul Odor after Cleansing No 4.R heel medial -Current Size (cm) - Length 0.5 0.1 -Current Size (cm) - Width 1.0 0.1 -Current Size (cm) - Depth 0.1 0 -Total Square Cm 0.50 0.01 -Date of Last Picture (Recall this 01/30/25 field) -Photo Taken Yes -Epithelialization Medium 34-66% -Tunneling No -Undermining/Tunneling No -Circular Undermining No -Exudate Amt Medium -Exudate Type Serosanguineous -Wound Margin Distinct, Outline Attached -Granulation Amt Medium (34-66%) -Granulation Quality Red -Slough/Fibrin No -Necrosis Amt Small (1-33%) -Necrotic Tissue Type Adherent Slough -Texture (Lesvia-wound Skin Appearance) Assessed,Callus Assessed -Moisture (Lesvia-wound Skin Appearance) Assessed, Assessed Maceration -Color (Lesvia-wound Skin Appearance) Assessed Assessed -Temperature (Lesvia-wound Skin No Abnormality No Abnormality Appearance) (Pt Warm) (Pt Warm) -Tenderness on Palpation (Lesvia-wound No No Skin Appearance) -Ulcer Cleansing Soap and Water Soap and Water -Foul Odor after Cleansing No -Anesthetic Used 5% Lidocaine Gel -Wound Comment(s) left epifix on Lower Limb Edema Present No Right Calf (cm) 46 Point of measurement (cm from the medial 40.5 instep) Right Ankle (cm) 26 Point of Measurement (cm from the medial 27.0 instep) 02/13/25 10:29 Wound Center Nurse 1 #6 LT HEEL -Combined with other wound -Current Size (cm) - Length -Current Size (cm) - Width -Current Size (cm) - Depth -Total Square Cm -Date of Last Picture (Recall this field) -Photo Taken -Epithelialization -Tunneling -Undermining/Tunneling -Circular Undermining -Exudate Amt -Wound Margin -Granulation Amt -Slough/Fibrin -Necrosis Amt -Necrotic Tissue Type -Texture (Lesvia-wound Skin Appearance) -Moisture (Lesvia-wound Skin Appearance) -Color (Lesvia-wound Skin Appearance) -Temperature (Lesvia-wound Skin Appearance) -Ulcer Cleansing -Foul Odor after Cleansing 4.R heel medial -Current Size (cm) - Length 0.1 -Current Size (cm) - Width 0.2 -Current Size (cm) - Depth 0.1 -Total Square Cm 0.02 -Date of Last Picture (Recall this 02/13/25 field) -Photo Taken -Epithelialization -Tunneling -Undermining/Tunneling -Circular Undermining -Exudate Amt -Exudate Type -Wound Margin -Granulation Amt -Granulation Quality -Slough/Fibrin -Necrosis Amt -Necrotic Tissue Type -Texture (Lesvia-wound Skin Appearance) Assessed -Moisture (Lesvia-wound Skin Appearance) Assessed, Maceration -Color (Lesvia-wound Skin Appearance) Assessed -Temperature (Lesvia-wound Skin No Abnormality Appearance) (Pt Warm) -Tenderness on Palpation (Lesvia-wound No Skin Appearance) -Ulcer Cleansing Soap and Water -Foul Odor after Cleansing No -Anesthetic Used 5% Lidocaine Gel -Wound Comment(s) Lower Limb Edema Present Right Calf (cm) 46 Point of measurement (cm from the medial instep) Right Ankle (cm) 26 Point of Measurement (cm from the medial instep) WC - Nurse 2 - General Ulcer CM Notes Start: 01/23/25 10:30 Freq: Status: Active Protocol: Activity Type Activity Date Activity User E-sign Co-sign Detail Recorded Client Recorded Date Recorded By Document 01/23/25 10:50 [id number] 01/23/25 10:56 Document 01/30/25 10:41 JF [id number] 01/30/25 10:47 Document 02/06/25 11:06 DS [id number] 02/06/25 11:07 DS Edit Result 02/06/25 11:06 DS (1) [id number] 02/06/25 11:08 DS Document 02/13/25 10:49 JF [id number] 02/13/25 10:53 JF (1) 4.R heel medial - Post Debridement (cm) - Length => 0.1 - Post Debridement (cm) - Width => 0.1 - Post Debridement (cm) - Depth => 0.1 - Total Square (Post) (cm) => 0.01 - Area of Debridement (cm) - Length => 0.1 - Area of Debridement (cm) - Width => 0.1 - Total Square (Area) (cm) => 0.01 - Tunneling => No - Undermining/Tunneling => No - Circular Undermining => No 01/23/25 01/30/25 02/06/25 10:50 10:41 11:06 Wound Center Nurse 2 #6 LT HEEL -Time 10:51 -Correct Patient Yes -Correct Side, Site, Position No -Correct Procedure No -Procedure Performed No -Post Debridement (cm) - Length 0 -Post Debridement (cm) - Width 0 -Post Debridement (cm) - Depth 0 -Total Square (Post) (cm) 0 -Area of Debridement (cm) - Length 0 -Area of Debridement (cm) - Width 0 -Total Square (Area) (cm) 0 -Tunneling No -Undermining/Tunneling No -Circular Undermining No -Wound/Ulcer Outcome Healed- Epithelialized -Ulcer Cleansing Rinsed/ Irrigated with Saline -Foul Odor after Cleansing No -Bioengineered Tissue No -Bleeding Controlled with Pressure -Treatment Response Procedure Tolerated Well -Debridement - Subq, 1st 20sq cm No -Apply Skin Sub - 1st 25 sq cm - Feet 1 -Epifix 18mm Disc Application 1-4 3 5-left 2nd toe -Correct Patient Yes -Correct Side, Site, Position No -Correct Procedure No -Procedure Performed No -Wound/Ulcer Outcome Healed- Epithelialized 4.R heel medial -Time 10:55 10:42 11:06 -Correct Patient Yes Yes Yes -Correct Side, Site, Position Yes Yes Yes -Correct Procedure Yes Yes -Procedure Performed Yes Yes No -Type of Procedure Debridement Debridement -Clinical Debridement Subcutaneous Subcutaneous -Tissue Removed Subcutaneous Subcutaneous -Post Debridement (cm) - Length 0.5 0.6 0.1 -Post Debridement (cm) - Width 1.2 0.8 0.1 -Post Debridement (cm) - Depth 0.1 0.2 0.1 -Total Square (Post) (cm) 0.60 0.48 0.01 -Area of Debridement (cm) - Length 0.5 0.6 0.1 -Area of Debridement (cm) - Width 1.2 0.8 0.1 -Total Square (Area) (cm) 0.60 0.48 0.01 -Tunneling No No No -Undermining/Tunneling No No No -Circular Undermining No No No -Wound/Ulcer Outcome Not Healed Not Healed Not Healed -Ulcer Cleansing Rinsed/ Rinsed/ Irrigated with Irrigated with Saline Saline -Foul Odor after Cleansing No No -Bioengineered Tissue Yes Yes -Type of Bioengineered Tissue Epifix 18mm Epifix 18mm Disc Disc -Expiration Date 09/18/29 11/18/29 -Product Lot Number [id number] -Percent Used 100 100 -Lot number of Saline Used [id number] -Bleeding Controlled with NA Pressure -Treatment Response Procedure Procedure Tolerated Well Tolerated Well -Offloading Yes Yes Yes -Type of Offloading Total Contact Total Contact Total Contact Cast (TCC) - Cast (TCC) - Cast (TCC) - Right ($) Right ($) Right ($) -Assistive Device(s) Wheelchair Wheelchair -Debridement - Subq, 1st 20sq cm No No -Apply Skin Sub - 1st 25 sq cm - Feet 1 1 -Epifix 18mm Disc Application 1-4 3 3 Pain Scale: 0-10 Numeric Is Patient Pain Free? Yes Yes Yes 02/13/25 10:49 Wound Center Nurse 2 #6 LT HEEL -Time -Correct Patient -Correct Side, Site, Position -Correct Procedure -Procedure Performed -Post Debridement (cm) - Length -Post Debridement (cm) - Width -Post Debridement (cm) - Depth -Total Square (Post) (cm) -Area of Debridement (cm) - Length -Area of Debridement (cm) - Width -Total Square (Area) (cm) -Tunneling -Undermining/Tunneling -Circular Undermining -Wound/Ulcer Outcome -Ulcer Cleansing -Foul Odor after Cleansing -Bioengineered Tissue -Bleeding Controlled with -Treatment Response -Debridement - Subq, 1st 20sq cm -Apply Skin Sub - 1st 25 sq cm - Feet -Epifix 18mm Disc Application 1-4 5-left 2nd toe -Correct Patient -Correct Side, Site, Position -Correct Procedure -Procedure Performed -Wound/Ulcer Outcome 4.R heel medial -Time 10:50 -Correct Patient Yes -Correct Side, Site, Position Yes -Correct Procedure Yes -Procedure Performed Yes -Type of Procedure Debridement -Clinical Debridement Subcutaneous -Tissue Removed Subcutaneous -Post Debridement (cm) - Length 0.4 -Post Debridement (cm) - Width 0.6 -Post Debridement (cm) - Depth 0.1 -Total Square (Post) (cm) 0.24 -Area of Debridement (cm) - Length 0.4 -Area of Debridement (cm) - Width 0.6 -Total Square (Area) (cm) 0.24 -Tunneling No -Undermining/Tunneling No -Circular Undermining No -Wound/Ulcer Outcome Not Healed -Ulcer Cleansing Rinsed/ Irrigated with Saline -Foul Odor after Cleansing No -Bioengineered Tissue No -Type of Bioengineered Tissue -Expiration Date -Product Lot Number -Percent Used -Lot number of Saline Used -Bleeding Controlled with Pressure -Treatment Response Procedure Tolerated Well -Offloading Yes -Type of Offloading Surgical Shoe -Assistive Device(s) -Debridement - Subq, 1st 20sq cm Yes -Apply Skin Sub - 1st 25 sq cm - Feet -Epifix 18mm Disc Application 1-4 Pain Scale: 0-10 Numeric Is Patient Pain Free? Yes - Nurse 3 - General Ulcer D/C NN Start: 01/23/25 10:30 Freq: Status: Active Protocol: Activity Type Activity Date Activity User E-sign Co-sign Detail Recorded Client Recorded Date Recorded By Document 01/23/25 11:25 MT [id number] 01/23/25 11:27 MT Document 01/30/25 11:00 KW [id number] 01/30/25 11:00 KW Document 02/06/25 16:15 KW [id number] 02/06/25 16:16 KW Document 02/13/25 12:23 KW [id number] 02/13/25 12:24 KW 01/23/25 01/30/25 02/06/25 11:25 11:00 16:15 Wound Care Center Nurse 3 4.R heel medial -Foul Odor after Cleansing No -Negative Pressure Wound Therapy N/A -Primary Dressing Applied Silicone Border Silicone Border Silicone Border Foam 4x4 Foam 6x6 Foam 6x6 -Primary Dressing Covered/Secured with Dry Gauze & Dry Gauze & Roll Gauze, Roll Gauze, Secured with Secured with Tape Tape -Promogran Roseanna Matter -Silicone Border Foam 4x4 1 -Silicone Border Foam 6x6 1 1 -Wound Comment(s) TCC applied RLE -Compression Wrap -Other tcc applied tcc Pain Scale: 0-10 Numeric Is Patient Pain Free? Yes Yes Yes - Visit Discharge Discharge Condition Stable Stable Stable Ambulatory Status Ambulatory Walker, Wheelchair Wheelchair Transportation Private Auto Private Auto Medication Reconcilliation completed & No No No provided to patient/care provider Clinical Summary of Care Provided Yes Yes Yes 02/13/25 12:23 Wound Care Center Nurse 3 4.R heel medial -Foul Odor after Cleansing -Negative Pressure Wound Therapy -Primary Dressing Applied Promogran Roseanna Matter, Silicone Border Foam 4x4 -Primary Dressing Covered/Secured with Dry Gauze & Roll Gauze, Secured with Tape -Promogran Roseanna Matter 1 -Silicone Border Foam 4x4 1 -Silicone Border Foam 6x6 -Wound Comment(s) RLE -Compression Wrap Haider Wrap -Other 4in and 6in Pain Scale: 0-10 Numeric Is Patient Pain Free? Yes WC - Visit Discharge Discharge Condition Stable Ambulatory Status Wheelchair Transportation Medication Reconcilliation completed & No provided to patient/care provider Clinical Summary of Care Provided Yes Assessment/Plan Assessment/Plan (1) Non-pressure chronic ulcer of other part of right foot with fat layer exposed: CODE(S): L97.512 - Non-pressure chronic ulcer of other part of right foot with fat layer exposed PLAN: Patient was examined and evaluated. All findings were discussed with the patient. All questions were answered to the patient's satisfaction. Excisional debridement down to and including subcutaneous tissue with a number 3mm dermal curette to the right heel full-thickness wound done without incident. Predebridement measurements callus. Postdebridement measurement is 0.4 x 0.6 x 0.1 cm. The right heel was wiped clean and patted dry. Moist Roseanna followed by dry sterile dressing and Haider wrap was donned to the right lower extremity followed by surgical shoe. Patient will have the custodial facility change his dressing every other day as written. Patient is to offload his left heel and to be weightbearing as tolerated as wellas working with physical therapy as tolerated. Follow-up at the wound care center with Dr. Cerda in 2 week 02/13/25 1253 <Electronically signed by León Cerda DPM> Cosigner Signature (if applicable): CC: ~ Signed [facility] Work Phone: [phone] Progress note [facility] [address] [place] [address] Progress Note - Wound Care 02/13/25 1251 MR#: [id number] Acct: [id number] Name: LANI ZARAGOZA Rep #:[id number] : 1955 69 From: León Pompa PM PCP: Dr. Bernabe Reese MD Status:RE G RCR Location: History of Present Illness Date of Service: 02/13/25 Chief Complaint: Diabetic right heel ulceration History of Wound: This is a 69-year-old obese, diabetic male patient whose care has been assumed from Dr. Ramon Garcia, who is departing from our staff. The patient has a chronic ulceration on his right heel, associated with poorly controlled type 2 diabetes mellitus and diabetic polyneuropathy. The patient suffers from multiple other pre-existing medical problems, which are documented herein. The patient's most recent management has been by means of serial debridements, with an EpiFix allograft having been applied at the patient's prior visit on December 11, 2024. Offloading measures and totalcontact casting have also been a recent cornerstone of the patient's management. 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 Progress of Wound: Healed full-thickness wounds to the left foot. Stable slow healing full- thickness wound right heel with amniotic skin graft substitute and total contactcast. Subjective Subjective Patient is a 69-year-old diabetic male presenting to wound care center today forfollow-up evaluation of full-thickness wound amniotic skin graft substitute to the right heel. Patient has been compliant with weightbearing as tolerated in the total contact cast with walking shoe. He is hoping that the wound is healedat this time. He has been participating more in physical therapy admits no painto the right lower extremity. He denies trauma. Denies constitutional symptoms. No other pedal complaints at this time. Objective Data Objective Data Vital Signs: Vital Signs Temp Pulse Resp BP O2 Del Method 96.8 F L 70 18 116/63 Room Air 02/13/25 10:29 02/13/25 10:29 02/13/25 10:29 02/13/25 10:29 02/13/25 10:29 Oxygen Delivery Method Room Air Lab / Micro Data Micro: Microbiology 01/02/25 14:14 Ulcer, Decubitus - Toe Gram Stain - Final 01/02/25 14:14 Ulcer, Decubitus - Toe Wound Culture - Final Meth. resistant Staph. aureus 01/02/25 14:14 Ulcer, Decubitus - Toe Anaerobic Culture - Final No anaerobic bacteria isolated. Physical Exam Narrative Vascular: DP and PT pulse are palpable. CFT is brisk. Skin temperature is warmto warm from proximalankles to distal digit bilateral. Nonpitting edema with hemosiderin deposit appreciated bilateral extremity. No erythema bilateral. Neurological:. Light touch is intact. Protective station is diminished. Patient does not respond topainful stimuli. Dermatological: Evidence of full-thickness wound to the right heel measuring 0.4x 0.6 x 0.1 cm. Wound base is granular with no sign of infection. Excisional debridement down to and including subcutaneous tissue with a number 3mm dermal curette to the right heel full-thickness wound done without incident. Predebridement measurements callus. Postdebridement measurement is 0.4 x 0.6 x 0.1 cm. Musculoskeletal: No pain to palpation to full-thickness wound bilateral. No pain with calf pressure. Debridement Note Debridement Note Debridement Free Text: Excisional debridement down to and including subcutaneoustissue with a number 3 mm dermal curette to the right heel full- thickness wound done without incident. Predebridement measurements callus. Postdebridement measurement is 0.4 x 0.6 x 0.1 cm. Post-Debridement Measurements and Additional Note: Post-Debridement Measurements/Treatment - Nurse 1 - General Ulcer Assessment Start: 01/23/25 10:30 Freq: Status: Active Protocol: BUDDY.ESTHERT Activity Type Activity Date Activity User E-sign Co-sign Detail Recorded Client Recorded Date Recorded By Document 01/23/25 10:30 [id number] 01/23/25 10:44 Document 01/30/25 10:32 [id number] 01/30/25 10:34 Document 02/06/25 10:28 [id number] 02/06/25 10:45 Document 02/13/25 10:29 KW [id number] 02/13/25 10:42 KW 01/23/25 01/30/25 02/06/25 10:30 10:32 10:28 - Today's Visit Information Type of service Follow-up Visit Follow-up Visit Follow-up Visit (Physician/AERIAL SURVEY TECHNICIAN (Physician/AERIAL SURVEY TECHNICIAN (Physician/AERIAL SURVEY TECHNICIAN ) ) ) Arrival Mode Walker, Wheelchair Wheelchair Wheelchair Transfer Assistance Manual None Patient Identification Verified (Name & Yes Yes Yes ) Finger Stick Blood Sugar(mg/dl) (if indicated): Blood Sugar Vital Signs Temperature (97.8 F-99.1 F) 96.5 F L 97.2 F L 96.9 F L Temperature Source Temporal Temporal Temporal Pulse Rate (60-100) 65 62 46 L Pulse Location Monitor Monitor Monitor Respiratory Rate (12-18) 16 16 18 Respiratory rate source Observation Monitor Observation Oxygen Delivery Method Room Air Room Air Room Air Blood Pressure (90/60-120/80) 122/65 H 109/55 L 112/44 L Blood Pressure Mean (mm Hg) 84 73 66 Source Monitor Monitor Monitor Position Sitting Sitting Standing Blood Pressure Location Right Arm Right Arm Left Arm History Since Last Visit- [...] Has compression in place as prescribed N/A Yes N/A Has offloadiing in place as prescribed Yes Yes Yes Experienced any changes in pain level or No No No management Left Footwear Total Contact Cast Right Footwear Total Contact Total Contact Regular Shoe Cast Cast Pain Scale: 0-10 Numeric Is Patient Pain Free? Yes Yes Yes 02/13/25 10:29 WC - Today's Visit Information Type of service Follow-up Visit (Physician/AERIAL SURVEY TECHNICIAN ) Arrival Mode Wheelchair Transfer Assistance Patient Identification Verified (Name & Yes ) Finger Stick Blood Sugar(mg/dl) (if 126 indicated): Blood Sugar Stated by Patient Vital Signs Temperature (97.8 F-99.1 F) 96.8 F L Temperature Source Temporal Pulse Rate (60-100) 70 Pulse Location Monitor Respiratory Rate (12-18) 18 Respiratory rate source Observation Oxygen Delivery Method Room Air Blood Pressure (90/60-120/80) 116/63 Blood Pressure Mean (mm Hg) 80 Source Monitor Position Sitting Blood Pressure Location [...] management Left Footwear Regular Shoe Right Footwear Total Contact Cast Pain Scale: 0-10 Numeric Is Patient Pain Free? Yes WC - Nurse 1 - General Ulcer Measurement Start: 01/23/25 10:30 Freq: Status: Active Protocol: Activity Type Activity Date Activity User E-sign Co-sign Detail Recorded Client Recorded Date Recorded By Document 01/23/25 10:30 GM [id number] 01/23/25 10:44 GM Document 01/30/25 10:32 GM [id number] 01/30/25 10:34 GM Document 02/06/25 10:28 KW [id number] 02/06/25 10:45 KW Document 02/13/25 10:29 KW [id number] 02/13/25 10:42 KW 01/23/25 01/30/25 02/06/25 10:30 10:32 10:28 Wound Center Nurse 1 #6 LT HEEL -Combined with other wound No -Current Size (cm) - Length 1.0 -Current Size (cm) - Width 0.5 -Current Size (cm) - Depth 0.1 -Total Square Cm 0.50 -Date of Last Picture (Recall this 01/23/25 field) -Photo Taken Yes -Epithelialization Small 1-33% -Tunneling No -Undermining/Tunneling No -Circular Undermining No -Exudate Amt None Present -Wound Margin Distinct, Outline Attached -Granulation Amt None Present (0 %) -Slough/Fibrin Yes -Necrosis Amt Small (1-33%) -Necrotic Tissue Type Eschar -Texture (Lesvia-wound Skin Appearance) Assessed -Moisture (Lesvia-wound Skin Appearance) Assessed -Color (Lesvia-wound Skin Appearance) Assessed -Temperature (Lesvia-wound Skin No Abnormality Appearance) (Pt Warm) -Ulcer Cleansing Soap and Water -Foul Odor after Cleansing No 4.R heel medial -Current Size (cm) - Length 0.5 0.1 -Current Size (cm) - Width 1.0 0.1 -Current Size (cm) - Depth 0.1 0 -Total Square Cm 0.50 0.01 -Date of Last Picture (Recall this 01/30/25 field) -Photo Taken Yes -Epithelialization Medium 34-66% -Tunneling No -Undermining/Tunneling No -Circular Undermining No -Exudate Amt Medium -Exudate Type Serosanguineous -Wound Margin Distinct, Outline Attached -Granulation Amt Medium (34-66%) -Granulation Quality Red -Slough/Fibrin No -Necrosis Amt Small (1-33%) -Necrotic Tissue Type Adherent Slough -Texture (Lesvia-wound Skin Appearance) Assessed,Callus Assessed -Moisture (Lesvia-wound Skin Appearance) Assessed, Assessed Maceration -Color (Lesvia-wound Skin Appearance) Assessed Assessed -Temperature (Lesvia-wound Skin No Abnormality No Abnormality Appearance) (Pt Warm) (Pt Warm) -Tenderness on Palpation (Lesvia-wound No No Skin Appearance) -Ulcer Cleansing Soap and Water Soap and Water -Foul Odor after Cleansing No -Anesthetic Used 5% Lidocaine Gel -Wound Comment(s) left epifix on Lower Limb Edema Present No Right Calf (cm) 46 Point of measurement (cm from the medial 40.5 instep) Right Ankle (cm) 26 Point of Measurement (cm from the medial 27.0 instep) 02/13/25 10:29 Wound Center Nurse 1 #6 LT HEEL -Combined with other wound -Current Size (cm) - Length -Current Size (cm) - Width -Current Size (cm) - Depth -Total Square Cm -Date of Last Picture (Recall this field) -Photo Taken -Epithelialization -Tunneling -Undermining/Tunneling -Circular Undermining -Exudate Amt -Wound Margin -Granulation Amt -Slough/Fibrin -Necrosis Amt -Necrotic Tissue Type -Texture (Lesvia-wound Skin Appearance) -Moisture (Lesvia-wound Skin Appearance) -Color (Lesvia-wound Skin Appearance) -Temperature (Lesvia-wound Skin Appearance) -Ulcer Cleansing -Foul Odor after Cleansing 4.R heel medial -Current Size (cm) - Length 0.1 -Current Size (cm) - Width 0.2 -Current Size (cm) - Depth 0.1 -Total Square Cm 0.02 -Date of Last Picture (Recall this 02/13/25 field) -Photo Taken -Epithelialization -Tunneling -Undermining/Tunneling -Circular Undermining -Exudate Amt -Exudate Type -Wound Margin -Granulation Amt -Granulation Quality -Slough/Fibrin -Necrosis Amt -Necrotic Tissue Type -Texture (Lesvia-wound Skin Appearance) Assessed -Moisture (Lesvia-wound Skin Appearance) Assessed, Maceration -Color (Lesvia-wound Skin Appearance) Assessed -Temperature (Lesvia-wound Skin No Abnormality Appearance) (Pt Warm) -Tenderness on Palpation (Lesvia-wound No Skin Appearance) -Ulcer Cleansing Soap and Water -Foul Odor after Cleansing No -Anesthetic Used 5% Lidocaine Gel -Wound Comment(s) Lower Limb Edema Present Right Calf (cm) 46 Point of measurement (cm from the medial instep) Right Ankle (cm) 26 Point of Measurement (cm from the medial instep) WC - Nurse 2 - General Ulcer CM Notes Start: 01/23/25 10:30 Freq: Status: Active Protocol: Activity Type Activity Date Activity User E-sign Co-sign Detail Recorded Client Recorded Date Recorded By Document 01/23/25 10:50 [id number] 01/23/25 10:56 Document 01/30/25 10:41 JF [id number] 01/30/25 10:47 Document 02/06/25 11:06 DS [id number] 02/06/25 11:07 DS Edit Result 02/06/25 11:06 DS (1) [id number] 02/06/25 11:08 DS Document 02/13/25 10:49 JF [id number] 02/13/25 10:53 JF (1) 4.R heel medial - Post Debridement (cm) - Length => 0.1 - Post Debridement (cm) - Width => 0.1 - Post Debridement (cm) - Depth => 0.1 - Total Square (Post) (cm) => 0.01 - Area of Debridement (cm) - Length => 0.1 - Area of Debridement (cm) - Width => 0.1 - Total Square (Area) (cm) => 0.01 - Tunneling => No - Undermining/Tunneling => No - Circular Undermining => No 01/23/25 01/30/25 02/06/25 10:50 10:41 11:06 Wound Center Nurse 2 #6 LT HEEL -Time 10:51 -Correct Patient Yes -Correct Side, Site, Position No -Correct Procedure No -Procedure Performed No -Post Debridement (cm) - Length 0 -Post Debridement (cm) - Width 0 -Post Debridement (cm) - Depth 0 -Total Square (Post) (cm) 0 -Area of Debridement (cm) - Length 0 -Area of Debridement (cm) - Width 0 -Total Square (Area) (cm) 0 -Tunneling No -Undermining/Tunneling No -Circular Undermining No -Wound/Ulcer Outcome Healed- Epithelialized -Ulcer Cleansing Rinsed/ Irrigated with Saline -Foul Odor after Cleansing No -Bioengineered Tissue No -Bleeding Controlled with Pressure -Treatment Response Procedure Tolerated Well -Debridement - Subq, 1st 20sq cm No -Apply Skin Sub - 1st 25 sq cm - Feet 1 -Epifix 18mm Disc Application 1-4 3 5-left 2nd toe -Correct Patient Yes -Correct Side, Site, Position No -Correct Procedure No -Procedure Performed No -Wound/Ulcer Outcome Healed- Epithelialized 4.R heel medial -Time 10:55 10:42 11:06 -Correct Patient Yes Yes Yes -Correct Side, Site, Position Yes Yes Yes -Correct Procedure Yes Yes -Procedure Performed Yes Yes No -Type of Procedure Debridement Debridement -Clinical Debridement Subcutaneous Subcutaneous -Tissue Removed Subcutaneous Subcutaneous -Post Debridement (cm) - Length 0.5 0.6 0.1 -Post Debridement (cm) - Width 1.2 0.8 0.1 -Post Debridement (cm) - Depth 0.1 0.2 0.1 -Total Square (Post) (cm) 0.60 0.48 0.01 -Area of Debridement (cm) - Length 0.5 0.6 0.1 -Area of Debridement (cm) - Width 1.2 0.8 0.1 -Total Square (Area) (cm) 0.60 0.48 0.01 -Tunneling No No No -Undermining/Tunneling No No No -Circular Undermining No No No -Wound/Ulcer Outcome Not Healed Not Healed Not Healed -Ulcer Cleansing Rinsed/ Rinsed/ Irrigated with Irrigated with Saline Saline -Foul Odor after Cleansing No No -Bioengineered Tissue Yes Yes -Type of Bioengineered Tissue Epifix 18mm Epifix 18mm Disc Disc -Expiration Date 09/18/29 11/18/29 -Product Lot Number [id number] -Percent Used 100 100 -Lot number of Saline Used [id number] -Bleeding Controlled with NA Pressure -Treatment Response Procedure Procedure Tolerated Well Tolerated Well -Offloading Yes Yes Yes -Type of Offloading Total Contact Total Contact Total Contact Cast (TCC) - Cast (TCC) - Cast (TCC) - Right ($) Right ($) Right ($) -Assistive Device(s) Wheelchair Wheelchair -Debridement - Subq, 1st 20sq cm No No -Apply Skin Sub - 1st 25 sq cm - Feet 1 1 -Epifix 18mm Disc Application 1-4 3 3 Pain Scale: 0-10 Numeric Is Patient Pain Free? Yes Yes Yes 02/13/25 10:49 Wound Center Nurse 2 #6 LT HEEL -Time -Correct Patient -Correct Side, Site, Position -Correct Procedure -Procedure Performed -Post Debridement (cm) - Length -Post Debridement (cm) - Width -Post Debridement (cm) - Depth -Total Square (Post) (cm) -Area of Debridement (cm) - Length -Area of Debridement (cm) - Width -Total Square (Area) (cm) -Tunneling -Undermining/Tunneling -Circular Undermining -Wound/Ulcer Outcome -Ulcer Cleansing -Foul Odor after Cleansing -Bioengineered Tissue -Bleeding Controlled with -Treatment Response -Debridement - Subq, 1st 20sq cm -Apply Skin Sub - 1st 25 sq cm - Feet -Epifix 18mm Disc Application 1-4 5-left 2nd toe -Correct Patient -Correct Side, Site, Position -Correct Procedure -Procedure Performed -Wound/Ulcer Outcome 4.R heel medial -Time 10:50 -Correct Patient Yes -Correct Side, Site, Position Yes -Correct Procedure Yes -Procedure Performed Yes -Type of Procedure Debridement -Clinical Debridement Subcutaneous -Tissue Removed Subcutaneous -Post Debridement (cm) - Length 0.4 -Post Debridement (cm) - Width 0.6 -Post Debridement (cm) - Depth 0.1 -Total Square (Post) (cm) 0.24 -Area of Debridement (cm) - Length 0.4 -Area of Debridement (cm) - Width 0.6 -Total Square (Area) (cm) 0.24 -Tunneling No -Undermining/Tunneling No -Circular Undermining No -Wound/Ulcer Outcome Not Healed -Ulcer Cleansing Rinsed/ Irrigated with Saline -Foul Odor after Cleansing No -Bioengineered Tissue No -Type of Bioengineered Tissue -Expiration Date -Product Lot Number -Percent Used -Lot number of Saline Used -Bleeding Controlled with Pressure -Treatment Response Procedure Tolerated Well -Offloading Yes -Type of Offloading Surgical Shoe -Assistive Device(s) -Debridement - Subq, 1st 20sq cm Yes -Apply Skin Sub - 1st 25 sq cm - Feet -Epifix 18mm Disc Application 1-4 Pain Scale: 0-10 Numeric Is Patient Pain Free? Yes - Nurse 3 - General Ulcer D/C NN Start: 01/23/25 10:30 Freq: Status: Active Protocol: Activity Type Activity Date Activity User E-sign Co-sign Detail Recorded Client Recorded Date Recorded By Document 01/23/25 11:25 MT [id number] 01/23/25 11:27 MT Document 01/30/25 11:00 KW [id number] 01/30/25 11:00 KW Document 02/06/25 16:15 KW [id number] 02/06/25 16:16 KW Document 02/13/25 12:23 KW [id number] 02/13/25 12:24 KW 01/23/25 01/30/25 02/06/25 11:25 11:00 16:15 Wound Care Center Nurse 3 4.R heel medial -Foul Odor after Cleansing No -Negative Pressure Wound Therapy N/A -Primary Dressing Applied Silicone Border Silicone Border Silicone Border Foam 4x4 Foam 6x6 Foam 6x6 -Primary Dressing Covered/Secured with Dry Gauze & Dry Gauze & Roll Gauze, Roll Gauze, Secured with Secured with Tape Tape -Promogran Roseanna Matter -Silicone Border Foam 4x4 1 -Silicone Border Foam 6x6 1 1 -Wound Comment(s) TCC applied RLE -Compression Wrap -Other tcc applied tcc Pain Scale: 0-10 Numeric Is Patient Pain Free? Yes Yes Yes - Visit Discharge Discharge Condition Stable Stable Stable Ambulatory Status Ambulatory Walker, Wheelchair Wheelchair Transportation Private Auto Private Auto Medication Reconcilliation completed & No No No provided to patient/care provider Clinical Summary of Care Provided Yes Yes Yes 02/13/25 12:23 Wound Care Center Nurse 3 4.R heel medial -Foul Odor after Cleansing -Negative Pressure Wound Therapy -Primary Dressing Applied Promogran Roseanna Matter, Silicone Border Foam 4x4 -Primary Dressing Covered/Secured with Dry Gauze & Roll Gauze, Secured with Tape -Promogran Roseanna Matter 1 -Silicone Border Foam 4x4 1 -Silicone Border Foam 6x6 -Wound Comment(s) RLE -Compression Wrap Haider Wrap -Other 4in and 6in Pain Scale: 0-10 Numeric Is Patient Pain Free? Yes WC - Visit Discharge Discharge Condition Stable Ambulatory Status Wheelchair Transportation Medication Reconcilliation completed & No provided to patient/care provider Clinical Summary of Care Provided Yes Assessment/Plan Assessment/Plan (1) Non-pressure chronic ulcer of other part of right foot with fat layer exposed: CODE(S): L97.512 - Non-pressure chronic ulcer of other part of right foot with fat layer exposed PLAN: Patient was examined and evaluated. All findings were discussed with the patient. All questions were answered to the patient's satisfaction. Excisional debridement down to and including subcutaneous tissue with a number 3mm dermal curette to the right heel full-thickness wound done without incident. Predebridement measurements callus. Postdebridement measurement is 0.4 x 0.6 x 0.1 cm. The right heel was wiped clean and patted dry. MoistPrisma followed by dry sterile dressing and Haider wrap was donned to the right lower extremity followed by surgical shoe. Patient will have the custodial facility change his dressing every other day as written. Patient is to offload his left heel and to be weightbearing as tolerated as wellas working with physical therapy as tolerated. Follow-up at the wound care center with Dr. Cerda in 2 week 02/13/25 1253 Cosigner Signature (if applicable): CC: ~ Signed [facility]08-20-2025 Progress note Author León Cerda [facility] Note Date/Time February 06, 2025 12 :58pm [facility] [address] [place] [id number] Progress Note - Wound Care 02/06/25 1254 MR#: [id number] Acct: [id number] Name: LANI ZARAGOZA Rep #:[id number] : 1955 69 From: León Pompa PM PCP: Dr. Bernabe Reese MD Status:RE G RCR Location: History of Present Illness Date of Service: 02/06/25 Chief Complaint: Diabetic right heel ulceration History of Wound: This is a 69-year-old obese, diabetic male patient whose care has been assumed from Dr. Ramon Garcia, who is departing from our staff. The patient has a chronic ulceration on his right heel, associated with poorly controlled type 2 diabetes mellitus and diabetic polyneuropathy. The patient suffers from multiple other pre-existing medical problems, which are documented herein. The patient's most recent management has been by means of serial debridements, with an EpiFix allograft having been applied at the patient's prior visit on December 11, 2024. Offloading measures and total contact casting have also been a recent cornerstone of the patient's management. 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 Progress of Wound: Healed full-thickness wounds to the left foot. Stable slow healing full- thickness wound right heel with amniotic skin graft substitute and total contactcast. Subjective Subjective Mr. Zaragoza is a 69-year-old diabetic male presenting to wound care center today for follow-up evaluation of total contact cast to the full-thickness wound with amniotic skin graft substitute to the right lower extremity. Patient has been compliant and left the cast clean dry and intact. He is working with physical therapy. His blood sugars well-controlled. Patient denies any trauma. Denies constitutional symptoms. No other pedal complaints at this time. Objective Data Objective Data Vital Signs: Vital Signs Temp Pulse Resp BP O2 Del Method 96.9 F L 46 L 18 112/44 L Room Air 02/06/25 10:28 02/06/25 10:28 02/06/25 10:28 02/06/25 10:28 02/06/25 10:28 Oxygen Delivery Method Room Air Lab / Micro Data Micro: Microbiology 01/02/25 14:14 Ulcer, Decubitus - Toe Gram Stain - Final 01/02/25 14:14 Ulcer, Decubitus - Toe Wound Culture - Final Meth. resistant Staph. aureus 01/02/25 14:14 Ulcer, Decubitus - Toe Anaerobic Culture - Final No anaerobic bacteria isolated. Physical Exam Narrative Vascular: DP and PT pulse are palpable. CFT is brisk. Skin temperature is warmto warm from proximal ankles to distal digit bilateral. Nonpitting edema with hemosiderin deposit appreciated bilateral extremity. No erythema bilateral. Neurological:. Light touch is intact. Protective station is diminished. Patient does not respond to painful stimuli. Dermatological: Evidence of full-thickness wound with surrounding sanguinous crust measuring 0.1 x 0.1 x 0.1 cm. Musculoskeletal: No pain to palpation to full-thickness wound bilateral. No pain with calf pressure. Debridement Note Debridement Note Post-Debridement Measurements and Additional Note: Post-Debridement Measurements/Treatment - Nurse 1 - General Ulcer Assessment Start: 01/23/25 10:30 Freq: Status: Active Protocol: BUDDY.LOWEXT Activity Type Activity Date Activity User E-sign Co-sign Detail Recorded Client Recorded Date Recorded By Document 01/23/25 10:30 GM [id number] 01/23/25 10:44 GM Document 01/30/25 10:32 GM [id number] 01/30/25 10:34 GM Document 02/06/25 10:28 KW [id number] 02/06/25 10:45 KW 01/23/25 01/30/25 02/06/25 10:30 10:32 10:28 - Today's Visit Information Type of service Follow-up Visit Follow-up Visit Follow-up Visit (Physician/AERIAL SURVEY TECHNICIAN (Physician/AERIAL SURVEY TECHNICIAN (Physician/AERIAL SURVEY TECHNICIAN ) ) ) Arrival Mode Walker, Wheelchair Wheelchair Wheelchair Transfer Assistance Manual None Patient Identification Verified (Name & Yes Yes Yes ) Vital Signs Temperature (97.8 F-99.1 F) 96.5 F L 97.2 F L 96.9 F L Temperature Source Temporal Temporal Temporal Pulse Rate (60-100) 65 62 46 L Pulse Location Monitor Monitor Monitor Respiratory Rate (12-18) 16 16 18 Respiratory rate source Observation Monitor Observation Oxygen Delivery Method Room Air Room Air Room Air Blood Pressure (90/60-120/80) 122/65 H 109/55 L 112/44 L Blood Pressure Mean (mm Hg) 84 73 66 Source Monitor Monitor Monitor Position Sitting Sitting Standing Blood Pressure Location Right Arm Right Arm Left Arm History Since Last Visit- [...] Has compression in place as prescribed N/A Yes N/A Has offloadiing in place as prescribed Yes Yes Yes Experienced any changes in pain level or No No No management Left Footwear Total Contact Cast Right Footwear Total Contact Total Contact Regular Shoe Cast Cast Pain Scale: 0-10 Numeric Is Patient Pain Free? Yes Yes Yes WC - Nurse 1 - General Ulcer Measurement Start: 01/23/25 10:30 Freq: Status: Active Protocol: Activity Type Activity Date Activity User E-sign Co-sign Detail Recorded Client Recorded Date Recorded By Document 01/23/25 10:30 GM [id number] 01/23/25 10:44 Document 01/30/25 10:32 GM [id number] 01/30/25 10:34 GM Document 02/06/25 10:28 KW [id number] 02/06/25 10:45 KW 01/23/25 01/30/25 02/06/25 10:30 10:32 10:28 Wound Center Nurse 1 #6 LT HEEL -Combined with other wound No -Current Size (cm) - Length 1.0 -Current Size (cm) - Width 0.5 -Current Size (cm) - Depth 0.1 -Total Square Cm 0.50 -Date of Last Picture (Recall this 01/23/25 field) -Photo Taken Yes -Epithelialization Small 1-33% -Tunneling No -Undermining/Tunneling No -Circular Undermining No -Exudate Amt None Present -Wound Margin Distinct, Outline Attached -Granulation Amt None Present (0 %) -Slough/Fibrin Yes -Necrosis Amt Small (1-33%) -Necrotic Tissue Type Eschar -Texture (Lesvia-wound Skin Appearance) Assessed -Moisture (Lesvia-wound Skin Appearance) Assessed -Color (Lesvia-wound Skin Appearance) Assessed -Temperature (Lesvia-wound Skin No Abnormality Appearance) (Pt Warm) -Ulcer Cleansing Soap and Water -Foul Odor after Cleansing No 4.R heel medial -Current Size (cm) - Length 0.5 0.1 -Current Size (cm) - Width 1.0 0.1 -Current Size (cm) - Depth 0.1 0 -Total Square Cm 0.50 0.01 -Date of Last Picture (Recall this 01/30/25 field) -Photo Taken Yes -Epithelialization Medium 34-66% -Tunneling No -Undermining/Tunneling No -Circular Undermining No -Exudate Amt Medium -Exudate Type Serosanguineous -Wound Margin Distinct, Outline Attached -Granulation Amt Medium (34-66%) -Granulation Quality Red -Slough/Fibrin No -Necrosis Amt Small (1-33%) -Necrotic Tissue Type Adherent Slough -Texture (Lesvia-wound Skin Appearance) Assessed,Callus Assessed -Moisture (Lesvia-wound Skin Appearance) Assessed, Assessed Maceration -Color (Lesvia-wound Skin Appearance) Assessed Assessed -Temperature (Lesvia-wound Skin No Abnormality No Abnormality Appearance) (Pt Warm) (Pt Warm) -Tenderness on Palpation (Lesvia-wound No No Skin Appearance) -Ulcer Cleansing Soap and Water Soap and Water -Foul Odor after Cleansing No -Anesthetic Used 5% Lidocaine Gel -Wound Comment(s) left epifix on Lower Limb Edema Present No Right Calf (cm) 46 Point of measurement (cm from the medial 40.5 instep) Right Ankle (cm) 26 Point of Measurement (cm from the medial 27.0 instep) WC - Nurse 2 - General Ulcer CM Notes Start: 01/23/25 10:30 Freq: Status: Active Protocol: Activity Type Activity Date Activity User E-sign Co-sign Detail Recorded Client Recorded Date Recorded By Document 01/23/25 10:50 [id number] 01/23/25 10:56 Document 01/30/25 10:41 [id number] 01/30/25 10:47 Document 02/06/25 11:06 DS [id number] 02/06/25 11:07 DS Edit Result 02/06/25 11:06 DS (1) [id number] 02/06/25 11:08 DS (1) 4.R heel medial - Post Debridement (cm) - Length => 0.1 - Post Debridement (cm) - Width => 0.1 - Post Debridement (cm) - Depth => 0.1 - Total Square (Post) (cm) => 0.01 - Area of Debridement (cm) - Length => 0.1 - Area of Debridement (cm) - Width => 0.1 - Total Square (Area) (cm) => 0.01 - Tunneling => No - Undermining/Tunneling => No - Circular Undermining => No 01/23/25 01/30/25 02/06/25 10:50 10:41 11:06 Wound Center Nurse 2 #6 LT HEEL -Time 10:51 -Correct Patient Yes -Correct Side, Site, Position No -Correct Procedure No -Procedure Performed No -Post Debridement (cm) - Length 0 -Post Debridement (cm) - Width 0 -Post Debridement (cm) - Depth 0 -Total Square (Post) (cm) 0 -Area of Debridement (cm) - Length 0 -Area of Debridement (cm) - Width 0 -Total Square (Area) (cm) 0 -Tunneling No -Undermining/Tunneling No -Circular Undermining No -Wound/Ulcer Outcome Healed- Epithelialized -Ulcer Cleansing Rinsed/ Irrigated with Saline -Foul Odor after Cleansing No -Bioengineered Tissue No -Bleeding Controlled with Pressure -Treatment Response Procedure Tolerated Well -Debridement - Subq, 1st 20sq cm No -Apply Skin Sub - 1st 25 sq cm - Feet 1 -Epifix 18mm Disc Application 1-4 3 5-left 2nd toe -Correct Patient Yes -Correct Side, Site, Position No -Correct Procedure No -Procedure Performed No -Wound/Ulcer Outcome Healed- Epithelialized 4.R heel medial -Time 10:55 10:42 11:06 -Correct Patient Yes Yes Yes -Correct Side, Site, Position Yes Yes Yes -Correct Procedure Yes Yes -Procedure Performed Yes Yes No -Type of Procedure Debridement Debridement -Clinical Debridement Subcutaneous Subcutaneous -Tissue Removed Subcutaneous Subcutaneous -Post Debridement (cm) - Length 0.5 0.6 0.1 -Post Debridement (cm) - Width 1.2 0.8 0.1 -Post Debridement (cm) - Depth 0.1 0.2 0.1 -Total Square (Post) (cm) 0.60 0.48 0.01 -Area of Debridement (cm) - Length 0.5 0.6 0.1 -Area of Debridement (cm) - Width 1.2 0.8 0.1 -Total Square (Area) (cm) 0.60 0.48 0.01 -Tunneling No No No -Undermining/Tunneling No No No -Circular Undermining No No No -Wound/Ulcer Outcome Not Healed Not Healed Not Healed -Ulcer Cleansing Rinsed/ Rinsed/ Irrigated with Irrigated with Saline Saline -Foul Odor after Cleansing No No -Bioengineered Tissue Yes Yes -Type of Bioengineered Tissue Epifix 18mm Epifix 18mm Disc Disc -Expiration Date 09/18/29 11/18/29 -Product Lot Number [id number] -Percent Used 100 100 -Lot number of Saline Used [id number] -Bleeding Controlled with NA Pressure -Treatment Response Procedure Procedure Tolerated Well Tolerated Well -Offloading Yes Yes Yes -Type of Offloading Total Contact Total Contact Total Contact Cast (TCC) - Cast (TCC) - Cast (TCC) - Right ($) Right ($) Right ($) -Assistive Device(s) Wheelchair Wheelchair -Debridement - Subq, 1st 20sq cm No No -Apply Skin Sub - 1st 25 sq cm - Feet 1 1 -Epifix 18mm Disc Application 1-4 3 3 Pain Scale: 0-10 Numeric Is Patient Pain Free? Yes Yes Yes - Nurse 3 - General Ulcer D/C NN Start: 01/23/25 10:30 Freq: Status: Active Protocol: Activity Type Activity Date Activity User E-sign Co-sign Detail Recorded Client Recorded Date Recorded By Document 01/23/25 11:25 NE [id number] 01/23/25 11:27 NE Document 01/30/25 11:00 [id number] 01/30/25 11:00 01/23/25 01/30/25 11:25 11:00 Wound Care Center Nurse 3 4.R heel medial -Foul Odor after Cleansing No -Negative Pressure Wound Therapy N/A -Primary Dressing Applied Silicone Border Silicone Border Foam 4x4 Foam 6x6 -Primary Dressing Covered/Secured with Dry Gauze & Roll Gauze, Secured with Tape -Silicone Border Foam 4x4 1 -Silicone Border Foam 6x6 1 -Wound Comment(s) TCC applied RLE -Other tcc applied tcc Pain Scale: 0-10 Numeric Is Patient Pain Free? Yes Yes - Visit Discharge Discharge Condition Stable Stable Ambulatory Status Ambulatory Walker, Wheelchair Transportation Private Auto Medication Reconcilliation completed & No No provided to patient/care provider Clinical Summary of Care Provided Yes Yes Assessment/Plan Assessment/Plan (1) Non-pressure chronic ulcer of other part of right foot with fat layer exposed: CODE(S): L97.512 - Non-pressure chronic ulcer of other part of right foot with fat layer exposed PLAN: Patient was examined and evaluated. All findings were discussed with the patient. All questions were answered to the patient's satisfaction. After exam the patient shows evidence of sanguinous crust with small full- thickness wound measuring 0.1 x 0.1 x 0.1 cm to the right heel. At this time nodebridement will be done and we will leave the wound alone. The area was dressed with bordered foam and total contact cast to the right lower extremity. Patient can continue to work with physical therapy as tolerated. Educated patient continue to offload the bilateral lower extremity. Tubigrip was applied to the left lower extremity. He is to practice strict blood sugar control which she is already doing. I did educate the patient that he needs to return to clinic next week with a functional and or diabetic shoe if he does nothave [address] in a surgical shoe and discharge him from the wound care center if his wound is completely healed. Everything was explained to the patient and he showed understanding of this. Follow-up at the wound care center with Dr. Cerda in 1 week 02/06/25 1258 <Electronically signed by León Cerda DPM> Cosigner Signature (if applicable): CC: ~ Signed [facility] Work Phone: 1(856) 632-301208-20-2025 Progress note [facility] [address] [place] [address] Progress Note - Wound Care 02/06/25 1254 MR#: [id number] Acct: [id number] Name: LANI ZARAGOZA Rep #:[id number] : 1955 69 From: León Pompa PM PCP: Dr. Bernabe Reese MD Status:[facility] Location: History of Present Illness Date of Service: 02/06/25 Chief Complaint: Diabetic right heel ulceration History of Wound: This is a 69-year-old obese, diabetic male patient whose care has been assumed from Dr. Ramon Garcia, who is departing from our staff. The patient has a chronic ulceration on his right heel, associated with poorly controlled type 2 diabetes mellitus and diabetic polyneuropathy. The patient suffers from multiple other pre-existing medical problems, which are documented herein. The patient's most recent management has been by means of serial debridements, with an EpiFix allograft having been applied at the patient's prior visit on December 11, 2024. Offloading measures and totalcontact casting have also been a recent cornerstone of the patient's management. 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 Progress of Wound: Healed full-thickness wounds to the left foot. Stable slow healing full- thickness wound right heel with amniotic skin graft substitute and total contactcast. Subjective Subjective Mr. Zaragoza is a 69-year-old diabetic male presenting to wound care center today for follow-up evaluation of total contact cast to the full-thickness wound with amniotic skin graft substitute to the right lower extremity. Patient has been compliant and left the cast clean dry and intact. He is working with physical therapy. His blood sugars well-controlled. Patient denies any trauma. Denies constitutional symptoms. No other pedal complaints at this time. Objective Data Objective Data Vital Signs: Vital Signs Temp Pulse Resp BP O2 Del Method 96.9 F L 46 L 18 112/44 L Room Air 02/06/25 10:28 02/06/25 10:28 02/06/25 10:28 02/06/25 10:28 02/06/25 10:28 Oxygen Delivery Method Room Air Lab / Micro Data Micro: Microbiology 01/02/25 14:14 Ulcer, Decubitus - Toe Gram Stain - Final 01/02/25 14:14 Ulcer, Decubitus - Toe Wound Culture - Final Meth. resistant Staph. aureus 01/02/25 14:14 Ulcer, Decubitus - Toe Anaerobic Culture - Final No anaerobic bacteria isolated. Physical Exam Narrative Vascular: DP and PT pulse are palpable. CFT is brisk. Skin temperature is warmto warm from proximalankles to distal digit bilateral. Nonpitting edema with hemosiderin deposit appreciated bilateral extremity. No erythema bilateral. Neurological:. Light touch is intact. Protective station is diminished. Patient does not respond topainful stimuli. Dermatological: Evidence of full-thickness wound with surrounding sanguinous crust measuring 0.1 x 0.1 x 0.1 cm. Musculoskeletal: No pain to palpation to full-thickness wound bilateral. No pain with calf pressure. Debridement Note Debridement Note Post-Debridement Measurements and Additional Note: Post-Debridement Measurements/Treatment WC - Nurse 1 - General Ulcer Assessment Start: 01/23/25 10:30 Freq: Status: Active Protocol: BUDDY.LOWEXT Activity Type Activity Date Activity User E-sign Co-sign Detail Recorded Client Recorded Date Recorded By Document 01/23/25 10:30 [id number] 01/23/25 10:44 Document 01/30/25 10:32 [id number] 01/30/25 10:34 Document 02/06/25 10:28 [id number] 02/06/25 10:45 KW 01/23/25 01/30/25 02/06/25 10:30 10:32 10:28 - Today's Visit Information Type of service Follow-up Visit Follow-up Visit Follow-up Visit (Physician/AERIAL SURVEY TECHNICIAN (Physician/AERIAL SURVEY TECHNICIAN (Physician/AERIAL SURVEY TECHNICIAN ) ) ) Arrival Mode Walker, Wheelchair Wheelchair Wheelchair Transfer Assistance Manual None Patient Identification Verified (Name & Yes Yes Yes ) Vital Signs Temperature (97.8 F-99.1 F) 96.5 F L 97.2 F L 96.9 F L Temperature Source Temporal Temporal Temporal Pulse Rate (60-100) 65 62 46 L Pulse Location Monitor Monitor Monitor Respiratory Rate (12-18) 16 16 18 Respiratory rate source Observation Monitor Observation Oxygen Delivery Method Room Air Room Air Room Air Blood Pressure (90/60-120/80) 122/65 H 109/55 L 112/44 L Blood Pressure Mean (mm Hg) 84 73 66 Source Monitor Monitor Monitor Position Sitting Sitting Standing Blood Pressure Location Right Arm Right Arm Left Arm History Since Last Visit- [...] Has compression in place as prescribed N/A Yes N/A Has offloadiing in place as prescribed Yes Yes Yes Experienced any changes in pain level or No No No management Left Footwear Total Contact Cast Right Footwear Total Contact Total Contact Regular Shoe Cast Cast Pain Scale: 0-10 Numeric Is Patient Pain Free? Yes Yes Yes - Nurse 1 - General Ulcer Measurement Start: 01/23/25 10:30 Freq: Status: Active Protocol: Activity Type Activity Date Activity User E-sign Co-sign Detail Recorded Client Recorded Date Recorded By Document 01/23/25 10:30 [id number] 01/23/25 10:44 GM Document 01/30/25 10:32 GM [id number] 01/30/25 10:34 GM Document 02/06/25 10:28 KW [id number] 02/06/25 10:45 KW 01/23/25 01/30/25 02/06/25 10:30 10:32 10:28 Wound Center Nurse 1 #6 LT HEEL -Combined with other wound No -Current Size (cm) - Length 1.0 -Current Size (cm) - Width 0.5 -Current Size (cm) - Depth 0.1 -Total Square Cm 0.50 -Date of Last Picture (Recall this 01/23/25 field) -Photo Taken Yes -Epithelialization Small 1-33% -Tunneling No -Undermining/Tunneling No -Circular Undermining No -Exudate Amt None Present -Wound Margin Distinct, Outline Attached -Granulation Amt None Present (0 %) -Slough/Fibrin Yes -Necrosis Amt Small (1-33%) -Necrotic Tissue Type Eschar -Texture (Lesvia-wound Skin Appearance) Assessed -Moisture (Lesvia-wound Skin Appearance) Assessed -Color (Lesvia-wound Skin Appearance) Assessed -Temperature (Lesvia-wound Skin No Abnormality Appearance) (Pt Warm) -Ulcer Cleansing Soap and Water -Foul Odor after Cleansing No 4.R heel medial -Current Size (cm) - Length 0.5 0.1 -Current Size (cm) - Width 1.0 0.1 -Current Size (cm) - Depth 0.1 0 -Total Square Cm 0.50 0.01 -Date of Last Picture (Recall this 01/30/25 field) -Photo Taken Yes -Epithelialization Medium 34-66% -Tunneling No -Undermining/Tunneling No -Circular Undermining No -Exudate Amt Medium -Exudate Type Serosanguineous -Wound Margin Distinct, Outline Attached -Granulation Amt Medium (34-66%) -Granulation Quality Red -Slough/Fibrin No -Necrosis Amt Small (1-33%) -Necrotic Tissue Type Adherent Slough -Texture (Lesvia-wound Skin Appearance) Assessed,Callus Assessed -Moisture (Lesvia-wound Skin Appearance) Assessed, Assessed Maceration -Color (Lesvia-wound Skin Appearance) Assessed Assessed -Temperature (Lesvia-wound Skin No Abnormality No Abnormality Appearance) (Pt Warm) (Pt Warm) -Tenderness on Palpation (Lesvia-wound No No Skin Appearance) -Ulcer Cleansing Soap and Water Soap and Water -Foul Odor after Cleansing No -Anesthetic Used 5% Lidocaine Gel -Wound Comment(s) left epifix on Lower Limb Edema Present No Right Calf (cm) 46 Point of measurement (cm from the medial 40.5 instep) Right Ankle (cm) 26 Point of Measurement (cm from the medial 27.0 instep) WC - Nurse 2 - General Ulcer CM Notes Start: 01/23/25 10:30 Freq: Status: Active Protocol: Activity Type Activity Date Activity User E-sign Co-sign Detail Recorded Client Recorded Date Recorded By Document 01/23/25 10:50 [id number] 01/23/25 10:56 Document 01/30/25 10:41 JF [id number] 01/30/25 10:47 Document 02/06/25 11:06 DS [id number] 02/06/25 11:07 DS Edit Result 02/06/25 11:06 DS (1) [id number] 02/06/25 11:08 DS (1) 4.R heel medial - Post Debridement (cm) - Length => 0.1 - Post Debridement (cm) - Width => 0.1 - Post Debridement (cm) - Depth => 0.1 - Total Square (Post) (cm) => 0.01 - Area of Debridement (cm) - Length => 0.1 - Area of Debridement (cm) - Width => 0.1 - Total Square (Area) (cm) => 0.01 - Tunneling => No - Undermining/Tunneling => No - Circular Undermining => No 01/23/25 01/30/25 02/06/25 10:50 10:41 11:06 Wound Center Nurse 2 #6 LT HEEL -Time 10:51 -Correct Patient Yes -Correct Side, Site, Position No -Correct Procedure No -Procedure Performed No -Post Debridement (cm) - Length 0 -Post Debridement (cm) - Width 0 -Post Debridement (cm) - Depth 0 -Total Square (Post) (cm) 0 -Area of Debridement (cm) - Length 0 -Area of Debridement (cm) - Width 0 -Total Square (Area) (cm) 0 -Tunneling No -Undermining/Tunneling No -Circular Undermining No -Wound/Ulcer Outcome Healed- Epithelialized -Ulcer Cleansing Rinsed/ Irrigated with Saline -Foul Odor after Cleansing No -Bioengineered Tissue No -Bleeding Controlled with Pressure -Treatment Response Procedure Tolerated Well -Debridement - Subq, 1st 20sq cm No -Apply Skin Sub - 1st 25 sq cm - Feet 1 -Epifix 18mm Disc Application 1-4 3 5-left 2nd toe -Correct Patient Yes -Correct Side, Site, Position No -Correct Procedure No -Procedure Performed No -Wound/Ulcer Outcome Healed- Epithelialized 4.R heel medial -Time 10:55 10:42 11:06 -Correct Patient Yes Yes Yes -Correct Side, Site, Position Yes Yes Yes -Correct Procedure Yes Yes -Procedure Performed Yes Yes No -Type of Procedure Debridement Debridement -Clinical Debridement Subcutaneous Subcutaneous -Tissue Removed Subcutaneous Subcutaneous -Post Debridement (cm) - Length 0.5 0.6 0.1 -Post Debridement (cm) - Width 1.2 0.8 0.1 -Post Debridement (cm) - Depth 0.1 0.2 0.1 -Total Square (Post) (cm) 0.60 0.48 0.01 -Area of Debridement (cm) - Length 0.5 0.6 0.1 -Area of Debridement (cm) - Width 1.2 0.8 0.1 -Total Square (Area) (cm) 0.60 0.48 0.01 -Tunneling No No No -Undermining/Tunneling No No No -Circular Undermining No No No -Wound/Ulcer Outcome Not Healed Not Healed Not Healed -Ulcer Cleansing Rinsed/ Rinsed/ Irrigated with Irrigated with Saline Saline -Foul Odor after Cleansing No No -Bioengineered Tissue Yes Yes -Type of Bioengineered Tissue Epifix 18mm Epifix 18mm Disc Disc -Expiration Date 09/18/29 11/18/29 -Product Lot Number [id number] -Percent Used 100 100 -Lot number of Saline Used [id number] -Bleeding Controlled with NA Pressure -Treatment Response Procedure Procedure Tolerated Well Tolerated Well -Offloading Yes Yes Yes -Type of Offloading Total Contact Total Contact Total Contact Cast (TCC) - Cast (TCC) - Cast (TCC) - Right ($) Right ($) Right ($) -Assistive Device(s) Wheelchair Wheelchair -Debridement - Subq, 1st 20sq cm No No -Apply Skin Sub - 1st 25 sq cm - Feet 1 1 -Epifix 18mm Disc Application 1-4 3 3 Pain Scale: 0-10 Numeric Is Patient Pain Free? Yes Yes Yes - Nurse 3 - General Ulcer D/C NN Start: 01/23/25 10:30 Freq: Status: Active Protocol: Activity Type Activity Date Activity User E-sign Co-sign Detail Recorded Client Recorded Date Recorded By Document 01/23/25 11:25 MT [id number] 01/23/25 11:27 MT Document 01/30/25 11:00 KW [id number] 01/30/25 11:00 KW 01/23/25 01/30/25 11: 11:00 Wound Care Center Nurse 3 4.R heel medial -Foul Odor after Cleansing No -Negative Pressure Wound Therapy N/A -Primary Dressing Applied Silicone Border Silicone Border Foam 4x4 Foam 6x6 -Primary Dressing Covered/Secured with Dry Gauze & Roll Gauze, Secured with Tape -Silicone Border Foam 4x4 1 -Silicone Border Foam 6x6 1 -Wound Comment(s) TCC applied RLE -Other tcc applied tcc Pain Scale: 0-10 Numeric Is Patient Pain Free? Yes Yes - Visit Discharge Discharge Condition Stable Stable Ambulatory Status Ambulatory Walker, Wheelchair Transportation Private Auto Medication Reconcilliation completed & No No provided to patient/care provider Clinical Summary of Care Provided Yes Yes Assessment/Plan Assessment/Plan (1) Non-pressure chronic ulcer of other part of right foot with fat layer exposed: CODE(S): L97.512 - Non-pressure chronic ulcer of other part of right foot with fat layer exposed PLAN: Patient was examined and evaluated. All findings were discussed with the patient. All questions were answered to the patient's satisfaction. After exam the patient shows evidence of sanguinous crust with small full- thickness wound measuring0.1 x 0.1 x 0.1 cm to the right heel. At this time nodebridement will be done and we will leave thewound alone. The area was dressed with bordered foam and total contact cast to the right lower extremity. Patient can continue to work with physical therapy as tolerated. Educated patient continue to offload the bilateral lower extremity. Tubigrip was applied to the left lower extremity. He is to practice strict blood sugar control which she is already doing. I did educate the patient that he needs to return to clinic next week with a functional and or diabetic shoeif he does nothave [address] in a surgical shoe and discharge him from the wound care center if his wound is completely healed. Everything was explained to the patient and he showed understanding of this. Follow-up at the wound care center with Dr. Cerda in 1 week 02/06/25 1258 Cosigner Signature (if applicable): CC: ~ Signed [facility]08-13-2025 Progress note Author León Cerda [facility] Note Date/Time January 30, 2025 10 :53am [facility] [address] [facility] [place] [address] Progress Note - Wound Care 01/30/25 1051 MR#: [id number] Acct: [id number] Name: LANI ZARAGOZA Rep #:[id number] : 1955 69 From: León Pompa PM PCP: Dr. Bernabe Reese MD Status:RE G RCR Location: History of Present Illness Date of Service: 01/30/25 Chief Complaint: Diabetic right heel ulceration History of Wound: This is a 69-year-old obese, diabetic male patient whose care has been assumed from Dr. Ramon Garcia, who is departing from our staff. The patient has a chronic ulceration on his right heel, associated with poorly controlled type 2 diabetes mellitus and diabetic polyneuropathy. The patient suffers from multiple other pre-existing medical problems, which are documented herein. The patient's most recent management has been by means of serial debridements, with an EpiFix allograft having been applied at the patient's prior visit on December 11, 2024. Offloading measures and total contact casting have also been a recent cornerstone of the patient's management. 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 Progress of Wound: Healed full-thickness wounds to the left foot. Stable slow healing full- thickness wound right heel with amniotic skin graft substitute and total contactcast. Subjective Subjective Patient is a 69-year-old diabetic male presenting to the wound care center todayfollow-up evaluation of full-thickness wound to left heel with amniotic skin graft substitute and total contact cast application. Patient is participating in physical therapy as needed. He is doing well. His blood sugars well-controlled. His left foot is completely healed. He is grateful for his care. He denies any new onset of trauma. Denies constitutional symptoms. No other pedal complaints at this time. Objective Data Objective Data Vital Signs: Vital Signs Temp Pulse Resp BP O2 Del Method 97.2 F L 62 16 109/55 L Room Air 01/30/25 10:32 01/30/25 10:32 01/30/25 10:32 01/30/25 10:32 01/30/25 10:32 Oxygen Delivery Method Room Air Lab / Micro Data Micro: Microbiology 01/02/25 14:14 Ulcer, Decubitus - Toe Gram Stain - Final 01/02/25 14:14 Ulcer, Decubitus - Toe Wound Culture - Final Meth. resistant Staph. aureus 01/02/25 14:14 Ulcer, Decubitus - Toe Anaerobic Culture - Final No anaerobic bacteria isolated. Physical Exam Narrative Vascular: DP and PT pulse are palpable. CFT is brisk. Skin temperature is warmto warm from proximal ankles to distal digit bilateral. Nonpitting edema with hemosiderin deposit appreciated bilateral extremity. No erythema bilateral. Neurological:. Light touch is intact. Protective station is diminished. Patient does not respond to painful stimuli. Dermatological: Full-thickness wound to the right heel measuring 0.6 x 0.8 x 0.2cm. Wound base is granular with no sign of infection. Excisional debridement down to including subcutaneous tissue with a number 3 mm dermal curette to the right heel full-thickness wound done without incident. Predebridement measurement was sanguinous crust postdebridement measurement was 0.6 x 0.8 x 0.2 cm. EpiFix 18 mm was applied to the right heel full-thickness ulceration with 100% use. #10 application. The graft site was free and clear of any infection. Thewound/skin graft substitute was dressed with nonadherent bandage secured in place with Steri-Strips followed by bolster dressing as well as a total contact cast at 90 degrees. Musculoskeletal: No pain to palpation to full-thickness wound bilateral. No pain with calf pressure. Debridement Note Debridement Note Debridement Free Text: Excisional debridement down to including subcutaneous tissue with a number 3 mm dermal curette to the right heel full-thickness wound done without incident. Predebridement measurement was sanguinous crust postdebridement measurement was 0.6 x 0.8 x 0.2 cm. EpiFix 18 mm was applied to the right heel full-thickness ulceration with 100% use. #10 application. The graft site was free and clear of any infection. Thewound/skin graft substitute was dressed with nonadherent bandage secured in place with Steri-Strips followed by bolster dressing as well as a total contact cast at 90 degrees. Post-Debridement Measurements and Additional Note: Post-Debridement Measurements/Treatment - Nurse 1 - General Ulcer Assessment Start: 01/23/25 10:30 Freq: Status: Active Protocol: WC.LOWEXT Activity Type Activity Date Activity User E-sign Co-sign Detail Recorded Client Recorded Date Recorded By Document 01/23/25 10:30 [id number] 01/23/25 10:44 Document 01/30/25 10:32 [id number] 01/30/25 10:34 01/23/25 01/30/25 10:30 10:32 - Today's Visit Information Type of service Follow-up Visit Follow-up Visit (Physician/AERIAL SURVEY TECHNICIAN (Physician/AERIAL SURVEY TECHNICIAN ) ) Arrival Mode Walker, Wheelchair Wheelchair Transfer Assistance Manual None Patient Identification Verified (Name & Yes Yes ) Vital Signs Temperature (97.8 F-99.1 F) 96.5 F L 97.2 F L Temperature Source Temporal Temporal Pulse Rate (60-100) 65 62 Pulse Location Monitor Monitor Respiratory Rate (12-18) 16 16 Respiratory rate source Observation Monitor Oxygen Delivery Method Room Air Room Air Blood Pressure (90/60-120/80) 122/65 H 109/55 L Blood Pressure Mean (mm Hg) 84 73 Source Monitor Monitor Position Sitting Sitting Blood Pressure Location Right Arm Right Arm History Since Last Visit- [...] Has compression in place as prescribed N/A Yes Has offloadiing in place as prescribed Yes Yes Experienced any changes in pain level or No No management Right Footwear Total Contact Total Contact Cast Cast Pain Scale: 0-10 Numeric Is Patient Pain Free? Yes Yes WC - Nurse 1 - General Ulcer Measurement Start: 01/23/25 10:30 Freq: Status: Active Protocol: Activity Type Activity Date Activity User E-sign Co-sign Detail Recorded Client Recorded Date Recorded By Document 01/23/25 10:30 [id number] 01/23/25 10:44 Document 01/30/25 10:32 [id number] 01/30/25 10:34 GM 01/23/25 01/30/25 10:30 10:32 Wound Center Nurse 1 #6 LT HEEL -Combined with other wound No -Current Size (cm) - Length 1.0 -Current Size (cm) - Width 0.5 -Current Size (cm) - Depth 0.1 -Total Square Cm 0.50 -Date of Last Picture (Recall this 01/23/25 field) -Photo Taken Yes -Epithelialization Small 1-33% -Tunneling No -Undermining/Tunneling No -Circular Undermining No -Exudate Amt None Present -Wound Margin Distinct, Outline Attached -Granulation Amt None Present (0 %) -Slough/Fibrin Yes -Necrosis Amt Small (1-33%) -Necrotic Tissue Type Eschar -Texture (Lesvia-wound Skin Appearance) Assessed -Moisture (Lesvia-wound Skin Appearance) Assessed -Color (Lesvia-wound Skin Appearance) Assessed -Temperature (Lesvia-wound Skin No Abnormality Appearance) (Pt Warm) -Ulcer Cleansing Soap and Water -Foul Odor after Cleansing No 4.R heel medial -Current Size (cm) - Length 0.5 -Current Size (cm) - Width 1.0 -Current Size (cm) - Depth 0.1 -Total Square Cm 0.50 -Date of Last Picture (Recall this 01/30/25 field) -Photo Taken Yes -Epithelialization Medium 34-66% -Tunneling No -Undermining/Tunneling No -Circular Undermining No -Exudate Amt Medium -Exudate Type Serosanguineous -Wound Margin Distinct, Outline Attached -Granulation Amt Medium (34-66%) -Granulation Quality Red -Slough/Fibrin No -Necrosis Amt Small (1-33%) -Necrotic Tissue Type Adherent Slough -Texture (Lesvia-wound Skin Appearance) Assessed,Callus -Moisture (Lesvia-wound Skin Appearance) Assessed, Maceration -Color (Lesvia-wound Skin Appearance) Assessed -Temperature (Lesvia-wound Skin No Abnormality Appearance) (Pt Warm) -Tenderness on Palpation (Lesvia-wound No Skin Appearance) -Ulcer Cleansing Soap and Water -Foul Odor after Cleansing No -Anesthetic Used 5% Lidocaine Gel Lower Limb Edema Present No Point of measurement (cm from the medial 40.5 instep) Point of Measurement (cm from the medial 27.0 instep) WC - Nurse 2 - General Ulcer CM Notes Start: 01/23/25 10:30 Freq: Status: Active Protocol: Activity Type Activity Date Activity User E-sign Co-sign Detail Recorded Client Recorded Date Recorded By Document 01/23/25 10:50 [id number] 01/23/25 10:56 Document 01/30/25 10:41 [id number] 01/30/25 10:47 01/23/25 01/30/25 10:50 10:41 Wound Center Nurse 2 #6 LT HEEL -Time 10:51 -Correct Patient Yes -Correct Side, Site, Position No -Correct Procedure No -Procedure Performed No -Post Debridement (cm) - Length 0 -Post Debridement (cm) - Width 0 -Post Debridement (cm) - Depth 0 -Total Square (Post) (cm) 0 -Area of Debridement (cm) - Length 0 -Area of Debridement (cm) - Width 0 -Total Square (Area) (cm) 0 -Tunneling No -Undermining/Tunneling No -Circular Undermining No -Wound/Ulcer Outcome Healed- Epithelialized -Ulcer Cleansing Rinsed/ Irrigated with Saline -Foul Odor after Cleansing No -Bioengineered Tissue No -Bleeding Controlled with Pressure -Treatment Response Procedure Tolerated Well -Debridement - Subq, 1st 20sq cm No -Apply Skin Sub - 1st 25 sq cm - Feet 1 -Epifix 18mm Disc Application 1-4 3 5-left 2nd toe -Correct Patient Yes -Correct Side, Site, Position No -Correct Procedure No -Procedure Performed No -Wound/Ulcer Outcome Healed- Epithelialized 4.R heel medial -Time 10:55 10:42 -Correct Patient Yes Yes -Correct Side, Site, Position Yes Yes -Correct Procedure Yes Yes -Procedure Performed Yes Yes -Type of Procedure Debridement Debridement -Clinical Debridement Subcutaneous Subcutaneous -Tissue Removed Subcutaneous Subcutaneous -Post Debridement (cm) - Length 0.5 0.6 -Post Debridement (cm) - Width 1.2 0.8 -Post Debridement (cm) - Depth 0.1 0.2 -Total Square (Post) (cm) 0.60 0.48 -Area of Debridement (cm) - Length 0.5 0.6 -Area of Debridement (cm) - Width 1.2 0.8 -Total Square (Area) (cm) 0.60 0.48 -Tunneling No No -Undermining/Tunneling No No -Circular Undermining No No -Wound/Ulcer Outcome Not Healed Not Healed -Ulcer Cleansing Rinsed/ Rinsed/ Irrigated with Irrigated with Saline Saline -Foul Odor after Cleansing No No -Bioengineered Tissue Yes Yes -Type of Bioengineered Tissue Epifix 18mm Epifix 18mm Disc Disc -Expiration Date 09/18/29 11/18/29 -Product Lot Number [id number] -Percent Used 100 100 -Lot number of Saline Used [id number] -Bleeding Controlled with NA Pressure -Treatment Response Procedure Procedure Tolerated Well Tolerated Well -Offloading Yes Yes -Type of Offloading Total Contact Total Contact Cast (TCC) - Cast (TCC) - Right ($) Right ($) -Assistive Device(s) Wheelchair Wheelchair -Debridement - Subq, 1st 20sq cm No No -Apply Skin Sub - 1st 25 sq cm - Feet 1 1 -Epifix 18mm Disc Application 1-4 3 3 Pain Scale: 0-10 Numeric Is Patient Pain Free? Yes Yes - Nurse 3 - General Ulcer D/C NN Start: 01/23/25 10:30 Freq: Status: Active Protocol: Activity Type Activity Date Activity User E-sign Co-sign Detail Recorded Client Recorded Date Recorded By Document 01/23/25 11:25 NE [id number] 01/23/25 11:27 NE 01/23/25 11:25 Wound Care Center Nurse 3 4.R heel medial -Foul Odor after Cleansing No -Negative Pressure Wound Therapy N/A -Primary Dressing Applied Silicone Border Foam 4x4 -Silicone Border Foam 4x4 1 -Wound Comment(s) TCC applied RLE -Other tcc applied Pain Scale: 0-10 Numeric Is Patient Pain Free? Yes WC - Visit Discharge Discharge Condition Stable Ambulatory Status Ambulatory Transportation Private Auto Medication Reconcilliation completed & No provided to patient/care provider Clinical Summary of Care Provided Yes Assessment/Plan Assessment/Plan (1) Non-pressure chronic ulcer of other part of right foot with fat layer exposed: CODE(S): L97.512 - Non-pressure chronic ulcer of other part of right foot with fat layer exposed PLAN: Patient was examined and evaluated. All findings were discussed with the patient. All questions were answered to the patient's satisfaction. Excisional debridement down to including subcutaneous tissue with a number 3 mm dermal curette to the right heel full-thickness wound done without incident. Predebridement measurement was sanguinous crust postdebridement measurement was 0.6 x 0.8 x 0.2 cm. EpiFix 18 mm was applied to the right heel full-thickness ulceration with 100% use. #10 application. The graft site was free and clear of any infection. Thewound/skin graft substitute was dressed with nonadherent bandage secured in place with Steri-Strips followed by bolster dressing as well as a total contact cast at 90 degrees. Patient's weightbearing status can be as tolerated with boot donned to the totalcontact cast and full weightbearing with regular shoe to the left foot. Patient can continue physical therapy as needed. Follow-up at the wound care center with Dr. Cerda in 1 week 01/30/25 1053 <Electronically signed by León Cerda DPM> Cosigner Signature (if applicable): CC: ~ Signed [facility] Work Phone: [phone] [phone] Progress note [facility] [address] [place] [address] Progress Note - Wound Care 01/30/25 1051 MR#: [id number] Acct: [id number] Name: LANI ZARAGOZA Rep #:[id number] : 1955 69 From: León GRAY PCP: Dr. Bernabe Reese MD Status:RE G RCR Location: History of Present Illness Date of Service: 01/30/25 Chief Complaint: Diabetic right heel ulceration History of Wound: This is a 69-year-old obese, diabetic male patient whose care has been assumed from Dr. Ramon Garcia, who is departing from our staff. The patient has a chronic ulceration on his right heel, associated with poorly controlled type 2 diabetes mellitus and diabetic polyneuropathy. The patient suffers from multiple other pre-existing medical problems, which are documented herein. The patient's most recent management has been by means of serial debridements, with an EpiFix allograft having been applied at the patient's prior visit on December 11, 2024. Offloading measures and totalcontact casting have also been a recent cornerstone of the patient's management. 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 Progress of Wound: Healed full-thickness wounds to the left foot. Stable slow healing full- thickness wound right heel with amniotic skin graft substitute and total contactcast. Subjective Subjective Patient is a 69-year-old diabetic male presenting to the wound care center todayfollow-up evaluation of full-thickness wound to left heel with amniotic skin graft substitute and total contact cast application. Patient is participating in physical therapy as needed. He is doing well. His blood sugars well-controlled. His left foot is completely healed. He is grateful for his care. He denies any new onset of trauma. Denies constitutional symptoms. No other pedal complaints at this time. Objective Data Objective Data Vital Signs: Vital Signs Temp Pulse Resp BP O2 Del Method 97.2 F L 62 16 109/55 L Room Air 01/30/25 10:32 01/30/25 10:32 01/30/25 10:32 01/30/25 10:32 01/30/25 10:32 Oxygen Delivery Method Room Air Lab / Micro Data Micro: Microbiology 01/02/25 14:14 Ulcer, Decubitus - Toe Gram Stain - Final 01/02/25 14:14 Ulcer, Decubitus - Toe Wound Culture - Final Meth. resistant Staph. aureus 01/02/25 14:14 Ulcer, Decubitus - Toe Anaerobic Culture - Final No anaerobic bacteria isolated. Physical Exam Narrative Vascular: DP and PT pulse are palpable. CFT is brisk. Skin temperature is warmto warm from proximalankles to distal digit bilateral. Nonpitting edema with hemosiderin deposit appreciated bilateral extremity. No erythema bilateral. Neurological:. Light touch is intact. Protective station is diminished. Patient does not respond topainful stimuli. Dermatological: Full-thickness wound to the right heel measuring 0.6 x 0.8 x 0.2cm. Wound base is granular with no sign of infection. Excisional debridement down to including subcutaneous tissue with a number 3 mm dermal curette to the right heel full-thickness wound done without incident. Predebridement measurement was sanguinous crust postdebridement measurement was 0.6 x 0.8 x 0.2 cm. EpiFix 18 mm was applied to the right heel full-thickness ulceration with 100% use. #10 application. The graft site was free and clear of any infection. Thewound/skin graft substitute was dressed with nonadherent bandage secured in place with Steri-Strips followed by bolster dressing as well as a total contact cast at 90 degrees. Musculoskeletal: No pain to palpation to full-thickness wound bilateral. No pain with calf pressure. Debridement Note Debridement Note Debridement Free Text: Excisional debridement down to including subcutaneous tissue with a number 3mm dermal curette to the right heel full-thickness wound done without incident. Predebridement measurement was sanguinous crust postdebridement measurement was 0.6 x 0.8 x 0.2 cm. EpiFix 18 mm was applied to the right heel full-thickness ulceration with 100% use. #10 application. The graft site was free and clear of any infection. Thewound/skin graft substitute was dressed with nonadherent bandage secured in place with Steri-Strips followed by bolster dressing as well as a total contact cast at 90 degrees. Post-Debridement Measurements and Additional Note: Post-Debridement Measurements/Treatment - Nurse 1 - General Ulcer Assessment Start: 01/23/25 10:30 Freq: Status: Active Protocol: MARGY Activity Type Activity Date Activity User E-sign Co-sign Detail Recorded Client Recorded Date Recorded By Document 01/23/25 10:30 [id number] 01/23/25 10:44 Document 01/30/25 10:32 [id number] 01/30/25 10:34 01/23/25 01/30/25 10:30 10:32 - Today's Visit Information Type of service Follow-up Visit Follow-up Visit (Physician/AERIAL SURVEY TECHNICIAN (Physician/AERIAL SURVEY TECHNICIAN ) ) Arrival Mode Walker, Wheelchair Wheelchair Transfer Assistance Manual None Patient Identification Verified (Name & Yes Yes ) Vital Signs Temperature (97.8 F-99.1 F) 96.5 F L 97.2 F L Temperature Source Temporal Temporal Pulse Rate (60-100) 65 62 Pulse Location Monitor Monitor Respiratory Rate (12-18) 16 16 Respiratory rate source Observation Monitor Oxygen Delivery Method Room Air Room Air Blood Pressure (90/60-120/80) 122/65 H 109/55 L Blood Pressure Mean (mm Hg) 84 73 Source Monitor Monitor Position Sitting Sitting Blood Pressure Location Right Arm Right Arm History Since Last Visit- [...] Has compression in place as prescribed N/A Yes Has offloadiing in place as prescribed Yes Yes Experienced any changes in pain level or No No management Right Footwear Total Contact Total Contact Cast Cast Pain Scale: 0-10 Numeric Is Patient Pain Free? Yes Yes - Nurse 1 - General Ulcer Measurement Start: 01/23/25 10:30 Freq: Status: Active Protocol: Activity Type Activity Date Activity User E-sign Co-sign Detail Recorded Client Recorded Date Recorded By Document 01/23/25 10:30 [id number] 01/23/25 10:44 Document 01/30/25 10:32 [id number] 01/30/25 10:34 01/23/25 01/30/25 10:30 10:32 Wound Center Nurse 1 #6 LT HEEL -Combined with other wound No -Current Size (cm) - Length 1.0 -Current Size (cm) - Width 0.5 -Current Size (cm) - Depth 0.1 -Total Square Cm 0.50 -Date of Last Picture (Recall this 01/23/25 field) -Photo Taken Yes -Epithelialization Small 1-33% -Tunneling No -Undermining/Tunneling No -Circular Undermining No -Exudate Amt None Present -Wound Margin Distinct, Outline Attached -Granulation Amt None Present (0 %) -Slough/Fibrin Yes -Necrosis Amt Small (1-33%) -Necrotic Tissue Type Eschar -Texture (Lesvia-wound Skin Appearance) Assessed -Moisture (Lesvia-wound Skin Appearance) Assessed -Color (Lesvia-wound Skin Appearance) Assessed -Temperature (Lesvia-wound Skin No Abnormality Appearance) (Pt Warm) -Ulcer Cleansing Soap and Water -Foul Odor after Cleansing No 4.R heel medial -Current Size (cm) - Length 0.5 -Current Size (cm) - Width 1.0 -Current Size (cm) - Depth 0.1 -Total Square Cm 0.50 -Date of Last Picture (Recall this 01/30/25 field) -Photo Taken Yes -Epithelialization Medium 34-66% -Tunneling No -Undermining/Tunneling No -Circular Undermining No -Exudate Amt Medium -Exudate Type Serosanguineous -Wound Margin Distinct, Outline Attached -Granulation Amt Medium (34-66%) -Granulation Quality Red -Slough/Fibrin No -Necrosis Amt Small (1-33%) -Necrotic Tissue Type Adherent Slough -Texture (Lesvia-wound Skin Appearance) Assessed,Callus -Moisture (Lesvia-wound Skin Appearance) Assessed, Maceration -Color (Lesvia-wound Skin Appearance) Assessed -Temperature (Lesvia-wound Skin No Abnormality Appearance) (Pt Warm) -Tenderness on Palpation (Lesvia-wound No Skin Appearance) -Ulcer Cleansing Soap and Water -Foul Odor after Cleansing No -Anesthetic Used 5% Lidocaine Gel Lower Limb Edema Present No Point of measurement (cm from the medial 40.5 instep) Point of Measurement (cm from the medial 27.0 instep) WC - Nurse 2 - General Ulcer CM Notes Start: 01/23/25 10:30 Freq: Status: Active Protocol: Activity Type Activity Date Activity User E-sign Co-sign Detail Recorded Client Recorded Date Recorded By Document 01/23/25 10:50 [id number] 01/23/25 10:56 Document 01/30/25 10:41 [id number] 01/30/25 10:47 01/23/25 01/30/25 10:50 10:41 Wound Center Nurse 2 #6 LT HEEL -Time 10:51 -Correct Patient Yes -Correct Side, Site, Position No -Correct Procedure No -Procedure Performed No -Post Debridement (cm) - Length 0 -Post Debridement (cm) - Width 0 -Post Debridement (cm) - Depth 0 -Total Square (Post) (cm) 0 -Area of Debridement (cm) - Length 0 -Area of Debridement (cm) - Width 0 -Total Square (Area) (cm) 0 -Tunneling No -Undermining/Tunneling No -Circular Undermining No -Wound/Ulcer Outcome Healed- Epithelialized -Ulcer Cleansing Rinsed/ Irrigated with Saline -Foul Odor after Cleansing No -Bioengineered Tissue No -Bleeding Controlled with Pressure -Treatment Response Procedure Tolerated Well -Debridement - Subq, 1st 20sq cm No -Apply Skin Sub - 1st 25 sq cm - Feet 1 -Epifix 18mm Disc Application 1-4 3 5-left 2nd toe -Correct Patient Yes -Correct Side, Site, Position No -Correct Procedure No -Procedure Performed No -Wound/Ulcer Outcome Healed- Epithelialized 4.R heel medial -Time 10:55 10:42 -Correct Patient Yes Yes -Correct Side, Site, Position Yes Yes -Correct Procedure Yes Yes -Procedure Performed Yes Yes -Type of Procedure Debridement Debridement -Clinical Debridement Subcutaneous Subcutaneous -Tissue Removed Subcutaneous Subcutaneous -Post Debridement (cm) - Length 0.5 0.6 -Post Debridement (cm) - Width 1.2 0.8 -Post Debridement (cm) - Depth 0.1 0.2 -Total Square (Post) (cm) 0.60 0.48 -Area of Debridement (cm) - Length 0.5 0.6 -Area of Debridement (cm) - Width 1.2 0.8 -Total Square (Area) (cm) 0.60 0.48 -Tunneling No No -Undermining/Tunneling No No -Circular Undermining No No -Wound/Ulcer Outcome Not Healed Not Healed -Ulcer Cleansing Rinsed/ Rinsed/ Irrigated with Irrigated with Saline Saline -Foul Odor after Cleansing No No -Bioengineered Tissue Yes Yes -Type of Bioengineered Tissue Epifix 18mm Epifix 18mm Disc Disc -Expiration Date 09/18/29 11/18/29 -Product Lot Number [id number] -Percent Used 100 100 -Lot number of Saline Used [id number] -Bleeding Controlled with NA Pressure -Treatment Response Procedure Procedure Tolerated Well Tolerated Well -Offloading Yes Yes -Type of Offloading Total Contact Total Contact Cast (TCC) - Cast (TCC) - Right ($) Right ($) -Assistive Device(s) Wheelchair Wheelchair -Debridement - Subq, 1st 20sq cm No No -Apply Skin Sub - 1st 25 sq cm - Feet 1 1 -Epifix 18mm Disc Application 1-4 3 3 Pain Scale: 0-10 Numeric Is Patient Pain Free? Yes Yes - Nurse 3 - General Ulcer D/C NN Start: 01/23/25 10:30 Freq: Status: Active Protocol: Activity Type Activity Date Activity User E-sign Co-sign Detail Recorded Client Recorded Date Recorded By Document 01/23/25 11:25 NE [id number] 01/23/25 11:27 NE 01/23/25 11:25 Wound Care Center Nurse 3 4.R heel medial -Foul Odor after Cleansing No -Negative Pressure Wound Therapy N/A -Primary Dressing Applied Silicone Border Foam 4x4 -Silicone Border Foam 4x4 1 -Wound Comment(s) TCC applied RLE -Other tcc applied Pain Scale: 0-10 Numeric Is Patient Pain Free? Yes WC - Visit Discharge Discharge Condition Stable Ambulatory Status Ambulatory Transportation Private Auto Medication Reconcilliation completed & No provided to patient/care provider Clinical Summary of Care Provided Yes Assessment/Plan Assessment/Plan (1) Non-pressure chronic ulcer of other part of right foot with fat layer exposed: CODE(S): L97.512 - Non-pressure chronic ulcer of other part of right foot with fat layer exposed PLAN: Patient was examined and evaluated. All findings were discussed with the patient. All questions were answered to the patient's satisfaction. Excisional debridement down to including subcutaneous tissue with a number 3 mm dermal curette to the right heel full-thickness wound done without incident. Predebridement measurement was sanguinous crust postdebridement measurement was 0.6 x 0.8 x 0.2 cm. EpiFix 18 mm was applied to the right heel full-thickness ulceration with 100% use. #10 application. The graft site was free and clear of any infection. Thewound/skin graft substitute was dressed with nonadherent bandage secured in place with Steri-Strips followed by bolster dressing as well as a total contact cast at 90 degrees. Patient's weightbearing status can be as tolerated with boot donned to the totalcontact cast and full weightbearing with regular shoe to the left foot. Patient can continue physical therapy as needed. Follow-up at the wound care center with Dr. Cerda in 1 week 01/30/25 1053 Cosigner Signature (if applicable): CC: ~ Signed [facility]08-06-2025 Progress note Author León Cerda [facility] Note Date/Time January 23, 2025 11: 01am [facility] [address] [place] [address] Progress Note - Wound Care 01/23/25 1059 MR#: [id number] Acct: [id number] Name: LANI ZARAGOZA Rep #:[id number] : 1955 69 From: León oPmpa PM PCP: Dr. Bernabe Reese MD Status:RE G RCR Location: History of Present Illness Date of Service: 01/23/25 Chief Complaint: Diabetic right heel ulceration History of Wound: This is a 69-year-old obese, diabetic male patient whose care has been assumed from Dr. Ramon Garcia, who is departing from our staff. The patient has a chronic ulceration on his right heel, associated with poorly controlled type 2 diabetes mellitus and diabetic polyneuropathy. The patient suffers from multiple other pre-existing medical problems, which are documented herein. The patient's most recent management has been by means of serial debridements, with an EpiFix allograft having been applied at the patient's prior visit on December 11, 2024. Offloading measures and total contact casting have also been a recent cornerstone of the patient's management. 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 Progress of Wound: Healed full-thickness wounds to the left foot. Stable slow healing full- thickness wound right heel with amniotic skin graft substitute and total contactcast. Subjective Subjective Patient is a 69-year-old diabetic male presenting to wound care center today forfollow-up evaluation of right heel full-thickness wound with amniotic skin graftsubstitute with total contact cast application. Patient states the left foot wounds are now healed. His blood sugars well-controlled. He has finished all his antibiotics. He is starting to work with physical therapy but at a snails pace. He is able to transfer without any concerns. He denies any new onset of trauma. Denies new open lesions or or abrasions. Denies constitutional symptoms. No other pedal complaints at this time. Objective Data Objective Data Vital Signs: Vital Signs Temp Pulse Resp BP O2 Del Method 96.5 F L 65 16 122/65 H Room Air 01/23/25 10:30 01/23/25 10:30 01/23/25 10:30 01/23/25 10:30 01/23/25 10:30 Oxygen Delivery Method Room Air Lab / Micro Data Micro: Microbiology 01/02/25 14:14 Ulcer, Decubitus - Toe Gram Stain - Final 01/02/25 14:14 Ulcer, Decubitus - Toe Wound Culture - Final Meth. resistant Staph. aureus 01/02/25 14:14 Ulcer, Decubitus - Toe Anaerobic Culture - Final No anaerobic bacteria isolated. Physical Exam Narrative Vascular: DP and PT pulse are palpable. CFT is brisk. Skin temperature is warmto warm from proximal ankles to distal digit bilateral. Nonpitting edema with hemosiderin deposit appreciated bilateral extremity. No erythema bilateral. Neurological:. Light touch is intact. Protective station is diminished. Patient does not respond to painful stimuli. Dermatological: Full-thickness wound to the right heel measuring 0.5 x 1.2 x 0.1cm. Wound base is granular with no sign of infection. Excisional debridement down to including subcutaneous tissue with a number 3 mm dermal curette to the right heel full-thickness wound done without incident. Predebridement measurement was sanguinous crust postdebridement measurement was 0.5 x 1.2 x 0.1 cm. EpiFix 18 mm was applied to the right heel full-thickness ulceration with 100% use. #9 application. The graft site was free and clear of any infection. The wound/skin graft substitute was dressed with nonadherent bandage secured in place with Steri-Strips followed by bolster dressing as well as a total contact cast at 90 degrees. Musculoskeletal: No pain to palpation to full-thickness wound bilateral. No pain with calf pressure. Debridement Note Debridement Note Debridement Free Text: Excisional debridement down to including subcutaneous tissue with a number 3 mm dermal curette to the right heel full-thickness wound done without incident. Predebridement measurement was sanguinous crust postdebridement measurement was 0.5 x 1.2 x 0.1 cm. EpiFix 18 mm was applied to the right heel full-thickness ulceration with 100% use. #9 application. The graft site was free and clear of any infection. The wound/skin graft substitute was dressed with nonadherent bandage secured in place with Steri-Strips followed by bolster dressing as well as a total contact cast at 90 degrees. Post-Debridement Measurements and Additional Note: Post-Debridement Measurements/Treatment - Nurse 1 - General Ulcer Assessment Start: 01/23/25 10:30 Freq: Status: Active Protocol: MARGY Activity Type Activity Date Activity User E-sign Co-sign Detail Recorded Client Recorded Date Recorded By Document 01/23/25 10:30 [id number] 01/23/25 10:44 01/23/25 10:30 - Today's Visit Information Type of service Follow-up Visit (Physician/AERIAL SURVEY TECHNICIAN ) Arrival Mode Walker, Wheelchair Transfer Assistance Manual Patient Identification Verified (Name & Yes ) Vital Signs Temperature (97.8 F-99.1 F) 96.5 F L Temperature Source Temporal Pulse Rate (60-100) 65 Pulse Location Monitor Respiratory Rate (12-18) 16 Respiratory rate source Observation Oxygen Delivery Method Room Air Blood Pressure (90/60-120/80) 122/65 H Blood Pressure Mean (mm Hg) 84 Source Monitor Position Sitting Blood Pressure Location Right Arm History Since Last Visit- (Skip [...] Has compression in place as prescribed N/A Has offloadiing in place as prescribed Yes Experienced any changes in pain level or No management Right Footwear Total Contact Cast Pain Scale: 0-10 Numeric Is Patient Pain Free? Yes - Nurse 1 - General Ulcer Measurement Start: 01/23/25 10:30 Freq: Status: Active Protocol: Activity Type Activity Date Activity User E-sign Co-sign Detail Recorded Client Recorded Date Recorded By Document 01/23/25 10:30 [id number] 01/23/25 10:44 01/23/25 10:30 Wound Center Nurse 1 #6 LT HEEL -Combined with other wound No -Current Size (cm) - Length 1.0 -Current Size (cm) - Width 0.5 -Current Size (cm) - Depth 0.1 -Total Square Cm 0.50 -Date of Last Picture (Recall this 01/23/25 field) -Photo Taken Yes -Epithelialization Small 1-33% -Tunneling No -Undermining/Tunneling No -Circular Undermining No -Exudate Amt None Present -Wound Margin Distinct, Outline Attached -Granulation Amt None Present (0 %) -Slough/Fibrin Yes -Necrosis Amt Small (1-33%) -Necrotic Tissue Type Eschar -Texture (Lesvia-wound Skin Appearance) Assessed -Moisture (Lesvia-wound Skin Appearance) Assessed -Color (Lesvia-wound Skin Appearance) Assessed -Temperature (Lesvia-wound Skin No Abnormality Appearance) (Pt Warm) -Ulcer Cleansing Soap and Water -Foul Odor after Cleansing No WC - Nurse 2 - General Ulcer CM Notes Start: 01/23/25 10:30 Freq: Status: Active Protocol: Activity Type Activity Date Activity User E-sign Co-sign Detail Recorded Client Recorded Date Recorded By Document 01/23/25 10:50 [email or web address] [id number] 01/23/25 10:56 [email or web address] 01/23/25 10:50 Wound Center Nurse 2 -Time 10:51 -Correct Patient Yes -Correct Side, Site, Position No -Correct Procedure No -Procedure Performed No -Post Debridement (cm) - Length 0 -Post Debridement (cm) - Width 0 -Post Debridement (cm) - Depth 0 -Total Square (Post) (cm) 0 -Area of Debridement (cm) - Length 0 -Area of Debridement (cm) - Width 0 -Total Square (Area) (cm) 0 -Tunneling No -Undermining/Tunneling No -Circular Undermining No -Wound/Ulcer Outcome Healed- Epithelialized -Ulcer Cleansing Rinsed/ Irrigated with Saline -Foul Odor after Cleansing No -Bioengineered Tissue No -Bleeding Controlled with Pressure -Treatment Response Procedure Tolerated Well -Debridement - Subq, 1st 20sq cm No -Apply Skin Sub - 1st 25 sq cm - Feet 1 -Epifix 18mm Disc Application 1-4 3 5-left 2nd toe -Correct Patient Yes -Correct Side, Site, Position No -Correct Procedure No -Procedure Performed No -Wound/Ulcer Outcome Healed- Epithelialized 4.R heel medial -Time 10:55 -Correct Patient Yes -Correct Side, Site, Position Yes -Correct Procedure Yes -Procedure Performed Yes -Type of Procedure Debridement -Clinical Debridement Subcutaneous -Tissue Removed Subcutaneous -Post Debridement (cm) - Length 0.5 -Post Debridement (cm) - Width 1.2 -Post Debridement (cm) - Depth 0.1 -Total Square (Post) (cm) 0.60 -Area of Debridement (cm) - Length 0.5 -Area of Debridement (cm) - Width 1.2 -Total Square (Area) (cm) 0.60 -Tunneling No -Undermining/Tunneling No -Circular Undermining No -Wound/Ulcer Outcome Not Healed -Ulcer Cleansing Rinsed/ Irrigated with Saline -Foul Odor after Cleansing No -Bioengineered Tissue Yes -Type of Bioengineered Tissue Epifix 18mm Disc -Expiration Date 09/18/29 -Product Lot Number [id number] -Percent Used 100 -Lot number of Saline Used [id number] -Bleeding Controlled with NA -Treatment Response Procedure Tolerated Well -Offloading Yes -Type of Offloading Total Contact Cast (TCC) - Right ($) -Assistive Device(s) Wheelchair -Debridement - Subq, 1st 20sq cm No -Apply Skin Sub - 1st 25 sq cm - Feet 1 -Epifix 18mm Disc Application 1-4 3 Pain Scale: 0-10 Numeric Is Patient Pain Free? Yes Assessment/Plan Assessment/Plan (1) Non-pressure chronic ulcer of other part of right foot with fat layer exposed: CODE(S): L97.512 - Non-pressure chronic ulcer of other part of right foot with fat layer exposed PLAN: Patient was examined and evaluated. All findings were discussed with the patient. All questions were answered to the patient's satisfaction. Excisional debridement down to including subcutaneous tissue with a number 3 mm dermal curette to the right heel full-thickness wound done without incident. Predebridement measurement was sanguinous crust postdebridement measurement was 0.5 x 1.2 x 0.1 cm. EpiFix 18 mm was applied to the right heel full-thickness ulceration with 100% use. #9 application. The graft site was free and clear of any infection. The wound/skin graft substitute was dressed with nonadherent bandage secured in place with Steri-Strips followed by bolster dressing as well as a total contact cast at 90 degrees. Patient's weightbearing status can be as tolerated with boot donned to the totalcontact cast and full weightbearing with regular shoe to the left foot. Patient shows no sign of infection to the bilateral lower extremity. He is okayto participate in physical therapy. Follow-up at the wound care center with Dr. Cerda in 1 week 01/23/25 1101 <Electronically signed by León Cerda DPM> Cosigner Signature (if applicable): CC: ~ Signed [facility] Work Phone: [phone]) 601-233908-06-2025 Progress note [facility] [address] [place] [address] Progress Note - Wound Care 01/23/25 1059 MR#: [id number] Acct: [id number] Name: LANI ZARAGOZA Rep #:[id number] : 1955 69 From: León Pompa PM PCP: Dr. Bernabe Reese MD Status: G R Location: History of Present Illness Date of Service: 01/23/25 Chief Complaint: Diabetic right heel ulceration History of Wound: This is a 69-year-old obese, diabetic male patient whose care has been assumed from Dr. Ramon Garcia, who is departing from our staff. The patient has a chronic ulceration on his right heel, associated with poorly controlled type 2 diabetes mellitus and diabetic polyneuropathy. The patient suffers from multiple other pre-existing medical problems, which are documented herein. The patient's most recent management has been by means of serial debridements, with an EpiFix allograft having been applied at the patient's prior visit on December 11, 2024. Offloading measures and totalcontact casting have also been a recent cornerstone of the patient's management. 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 Progress of Wound: Healed full-thickness wounds to the left foot. Stable slow healing full- thickness wound right heel with amniotic skin graft substitute and total contactcast. Subjective Subjective Patient is a 69-year-old diabetic male presenting to wound care center today forfollow-up evaluation of right heel full-thickness wound with amniotic skin graftsubstitute with total contact cast application. Patient states the left foot wounds are now healed. His blood sugars well-controlled. He has finished all his antibiotics. He is starting to work with physical therapy but at a snails pace. He is able to transfer without any concerns. He denies any new onset of trauma. Denies new open lesions or or abrasions. Denies constitutional symptoms. No other pedal complaints at this time. Objective Data Objective Data Vital Signs: Vital Signs Temp Pulse Resp BP O2 Del Method 96.5 F L 65 16 122/65 H Room Air 01/23/25 10:30 01/23/25 10:30 01/23/25 10:30 01/23/25 10:30 01/23/25 10:30 Oxygen Delivery Method Room Air Lab / Micro Data Micro: Microbiology 01/02/25 14:14 Ulcer, Decubitus - Toe Gram Stain - Final 01/02/25 14:14 Ulcer, Decubitus - Toe Wound Culture - Final Meth. resistant Staph. aureus 01/02/25 14:14 Ulcer, Decubitus - Toe Anaerobic Culture - Final No anaerobic bacteria isolated. Physical Exam Narrative Vascular: DP and PT pulse are palpable. CFT is brisk. Skin temperature is warmto warm from proximalankles to distal digit bilateral. Nonpitting edema with hemosiderin deposit appreciated bilateral extremity. No erythema bilateral. Neurological:. Light touch is intact. Protective station is diminished. Patient does not respond topainful stimuli. Dermatological: Full-thickness wound to the right heel measuring 0.5 x 1.2 x 0.1cm. Wound base is granular with no sign of infection. Excisional debridement down to including subcutaneous tissue with a number 3 mm dermal curette to the right heel full-thickness wound done without incident. Predebridement measurement was sanguinous crust postdebridement measurement was 0.5 x 1.2 x 0.1 cm. EpiFix 18 mm was applied to the right heel full-thickness ulceration with 100% use. #9 application.The graft site was free and clear of any infection. The wound/skin graft substitute was dressed with nonadherent bandage secured in place with Steri-Strips followed by bolster dressing as well as a total contact cast at 90 degrees. Musculoskeletal: No pain to palpation to full-thickness wound bilateral. No pain with calf pressure. Debridement Note Debridement Note Debridement Free Text: Excisional debridement down to including subcutaneous tissue with a number 3mm dermal curette to the right heel full-thickness wound done without incident. Predebridement measurement was sanguinous crust postdebridement measurement was 0.5 x 1.2 x 0.1 cm. EpiFix 18 mm was applied to the right heel full-thickness ulceration with 100% use. #9 application.The graft site was free and clear of any infection. The wound/skin graft substitute was dressed with nonadherent bandage secured in place with Steri-Strips followed by bolster dressing as well as a total contact cast at 90 degrees. Post-Debridement Measurements and Additional Note: Post-Debridement Measurements/Treatment WC - Nurse 1 - General Ulcer Assessment Start: 01/23/25 10:30 Freq: Status: Active Protocol: MARGY Activity Type Activity Date Activity User E-sign Co-sign Detail Recorded Client Recorded Date Recorded By Document 01/23/25 10:30 [id number] 01/23/25 10:44 GM 01/23/25 10:30 WC - Today's Visit Information Type of service Follow-up Visit (Physician/AERIAL SURVEY TECHNICIAN ) Arrival Mode Walker, Wheelchair Transfer Assistance Manual Patient Identification Verified (Name & Yes ) Vital Signs Temperature (97.8 F-99.1 F) 96.5 F L Temperature Source Temporal Pulse Rate (60-100) 65 Pulse Location Monitor Respiratory Rate (12-18) 16 Respiratory rate source Observation Oxygen Delivery Method Room Air Blood Pressure (90/60-120/80) 122/65 H Blood Pressure Mean (mm Hg) 84 Source Monitor Position Sitting Blood Pressure Location Right Arm History Since Last Visit- (Skip [...] Has compression in place as prescribed N/A Has offloadiing in place as prescribed Yes Experienced any changes in pain level or No management Right Footwear Total Contact Cast Pain Scale: 0-10 Numeric Is Patient Pain Free? Yes - Nurse 1 - General Ulcer Measurement Start: 01/23/25 10:30 Freq: Status: Active Protocol: Activity Type Activity Date Activity User E-sign Co-sign Detail Recorded Client Recorded Date Recorded By Document 01/23/25 10:30 [id number] 01/23/25 10:44 01/23/25 10:30 Wound Center Nurse 1 #6 LT HEEL -Combined with other wound No -Current Size (cm) - Length 1.0 -Current Size (cm) - Width 0.5 -Current Size (cm) - Depth 0.1 -Total Square Cm 0.50 -Date of Last Picture (Recall this 01/23/25 field) -Photo Taken Yes -Epithelialization Small 1-33% -Tunneling No -Undermining/Tunneling No -Circular Undermining No -Exudate Amt None Present -Wound Margin Distinct, Outline Attached -Granulation Amt None Present (0 %) -Slough/Fibrin Yes -Necrosis Amt Small (1-33%) -Necrotic Tissue Type Eschar -Texture (Lesvia-wound Skin Appearance) Assessed -Moisture (Lesvia-wound Skin Appearance) Assessed -Color (Lesvia-wound Skin Appearance) Assessed -Temperature (Lesvia-wound Skin No Abnormality Appearance) (Pt Warm) -Ulcer Cleansing Soap and Water -Foul Odor after Cleansing No WC - Nurse 2 - General Ulcer CM Notes Start: 01/23/25 10:30 Freq: Status: Active Protocol: Activity Type Activity Date Activity User E-sign Co-sign Detail Recorded Client Recorded Date Recorded By Document 01/23/25 10:50 [id number] 01/23/25 10:56 01/23/25 10:50 Wound Center Nurse 2 -Time 10:51 -Correct Patient Yes -Correct Side, Site, Position No -Correct Procedure No -Procedure Performed No -Post Debridement (cm) - Length 0 -Post Debridement (cm) - Width 0 -Post Debridement (cm) - Depth 0 -Total Square (Post) (cm) 0 -Area of Debridement (cm) - Length 0 -Area of Debridement (cm) - Width 0 -Total Square (Area) (cm) 0 -Tunneling No -Undermining/Tunneling No -Circular Undermining No -Wound/Ulcer Outcome Healed- Epithelialized -Ulcer Cleansing Rinsed/ Irrigated with Saline -Foul Odor after Cleansing No -Bioengineered Tissue No -Bleeding Controlled with Pressure -Treatment Response Procedure Tolerated Well -Debridement - Subq, 1st 20sq cm No -Apply Skin Sub - 1st 25 sq cm - Feet 1 -Epifix 18mm Disc Application 1-4 3 5-left 2nd toe -Correct Patient Yes -Correct Side, Site, Position No -Correct Procedure No -Procedure Performed No -Wound/Ulcer Outcome Healed- Epithelialized 4.R heel medial -Time 10:55 -Correct Patient Yes -Correct Side, Site, Position Yes -Correct Procedure Yes -Procedure Performed Yes -Type of Procedure Debridement -Clinical Debridement Subcutaneous -Tissue Removed Subcutaneous -Post Debridement (cm) - Length 0.5 -Post Debridement (cm) - Width 1.2 -Post Debridement (cm) - Depth 0.1 -Total Square (Post) (cm) 0.60 -Area of Debridement (cm) - Length 0.5 -Area of Debridement (cm) - Width 1.2 -Total Square (Area) (cm) 0.60 -Tunneling No -Undermining/Tunneling No -Circular Undermining No -Wound/Ulcer Outcome Not Healed -Ulcer Cleansing Rinsed/ Irrigated with Saline -Foul Odor after Cleansing No -Bioengineered Tissue Yes -Type of Bioengineered Tissue Epifix 18mm Disc -Expiration Date 09/18/29 -Product Lot Number [id number] -Percent Used 100 -Lot number of Saline Used [id number] -Bleeding Controlled with NA -Treatment Response Procedure Tolerated Well -Offloading Yes -Type of Offloading Total Contact Cast (TCC) - Right ($) -Assistive Device(s) Wheelchair -Debridement - Subq, 1st 20sq cm No -Apply Skin Sub - 1st 25 sq cm - Feet 1 -Epifix 18mm Disc Application 1-4 3 Pain Scale: 0-10 Numeric Is Patient Pain Free? Yes Assessment/Plan Assessment/Plan (1) Non-pressure chronic ulcer of other part of right foot with fat layer exposed: CODE(S): L97.512 - Non-pressure chronic ulcer of other part of right foot with fat layer exposed PLAN: Patient was examined and evaluated. All findings were discussed with the patient. All questions were answered to the patient's satisfaction. Excisional debridement down to including subcutaneous tissue with a number 3 mm dermal curette to the right heel full-thickness wound done without incident. Predebridement measurement was sanguinous crust postdebridement measurement was 0.5 x 1.2 x 0.1 cm. EpiFix 18 mm was applied to the right heel full-thickness ulceration with 100% use. #9 application.The graft site was free and clear of any infection. The wound/skin graft substitute was dressed with nonadherent bandage secured in place with Steri-Strips followed by bolster dressing as well as a total contact cast at 90 degrees. Patient's weightbearing status can be as tolerated with boot donned to the totalcontact cast and full weightbearing with regular shoe to the left foot. Patient shows no sign of infection to the bilateral lower extremity. He is okayto participate in physical therapy. Follow-up at the wound care center with Dr. Cerda in 1 week 01/23/25 1101 Cosigner Signature (if applicable): CC: ~ Signed [facility]07-30-2025 Progress note Author León Cerda [facility] Note Date/Time January 16, 2025 1:37 pm [facility] [address] [place] [address] Progress Note - Wound Care 01/16/25 1332 MR#: [id number] Acct: [id number] Name: LANI ZARAGOZA Rep #:[id number] : 1955 69 From: León Cerda D PM PCP: Dr. Bernabe Reese MD Status:RE G RCR Location: History of Present Illness Date of Service: 01/16/25 Chief Complaint: Diabetic right heel ulceration History of Wound: This is a 69-year-old obese, diabetic male patient whose care has been assumed from Dr. Ramon Garcia, who is departing from our staff. The patient has a chronic ulceration on his right heel, associated with poorly controlled type 2 diabetes mellitus and diabetic polyneuropathy. The patient suffers from multiple other pre-existing medical problems, which are documented herein. The patient's most recent management has been by means of serial debridements, with an EpiFix allograft having been applied at the patient's prior visit on December 11, 2024. Offloading measures and total contact casting have also been a recent cornerstone of the patient's management. 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 Progress of Wound: Stable right heel wound no sign of infection. Wounds to the left heel and second digit are stable with eschar. Subjective Subjective Patient is a 69-year-old diabetic male presented wound care center today for follow-up evaluation of full-thickness wound with amnio skin graft substitute total contact cast to the right lower extremity. He has been doing dressing changes as discussed to the left heel and left second digit. He admits those wounds are now healed. He is taking antibiotics as prescribed. He denies any new onset of trauma. He is compliant with nonweightbearing status to the right lower extremity. Denies constitutional symptoms. No other pedal complaints at this time. Objective Data Objective Data Vital Signs: Vital Signs Temp Pulse Resp BP O2 Del Method 97.1 F L 73 18 108/55 L Room Air 01/16/25 10:01/16/25 10:01/16/25 10:01/16/25 10:01/16/25 10:26 Oxygen Delivery Method Room Air Weight: 146.057 kg Body Mass Index (BMI) 48.9 Lab / Micro Data Micro: Microbiology 01/02/25 14:14 Ulcer, Decubitus - Toe Gram Stain - Final 01/02/25 14:14 Ulcer, Decubitus - Toe Wound Culture - Final Meth. resistant Staph. aureus 01/02/25 14:14 Ulcer, Decubitus - Toe Anaerobic Culture - Final No anaerobic bacteria isolated. Physical Exam Narrative Vascular: DP and PT pulse are palpable. CFT is brisk. Skin temperature is warmto warm from proximal ankles to distal digit bilateral. Nonpitting edema with hemosiderin deposit appreciated bilateral extremity. Improved erythema to the left heel and left second digit. Neurological:. Light touch is intact. Protective station is diminished. Patient does not respond to painful stimuli. Dermatological: Full-thickness wound to the right heel measuring 0.6 x 1.1 x 0.1cm. Wound base is granular with no sign of infection. Full-thickness wounds tothe left heel and left second digit shows sanguinous crust with no new wound at this time. Excisional debridement down to including subcutaneous tissue with a number 3 mm dermal curette to the right heel full-thickness wound done without incident. Predebridement measurement was sanguinous crust postdebridement measurement was 0.6 x 1.1 x 0.1 cm. EpiFix 18 mm was applied to the right heel full-thickness ulceration with 100% use. The graft site was free and clear of any infection. The wound/skin graft substitute was dressed with nonadherent bandage secured in place with Steri-Strips followed by bolster dressing as well as a total contact cast at 90 degrees. Musculoskeletal: No pain to palpation to full-thickness wound bilateral. No pain with calf pressure. Debridement Note Debridement Note Debridement Free Text: Excisional debridement down to including subcutaneous tissue with a number 3 mm dermal curette to the right heel full-thickness wound done without incident. Predebridement measurement was sanguinous crust postdebridement measurement was 0.6 x 1.1 x 0.1 cm. EpiFix 18 mm was applied to the right heel full-thickness ulceration with 100% use. The graft site was free and clear of any infection. The wound/skin graft substitute was dressed with nonadherent bandage secured in place with Steri-Strips followed by bolster dressing as well as a total contact cast at 90 degrees. Post-Debridement Measurements and Additional Note: Post-Debridement Measurements/Treatment - Nurse 1 - General Ulcer Assessment Start: 12/18/24 09:27 Freq: Status: Active Protocol: [email or web address] Activity Type Activity Date Activity User E-sign Co-sign Detail Recorded Client Recorded Date Recorded By Document 12/18/24 09:27 [facility] [id number] 12/18/24 09:35 [facility] Document 12/18/24 09:40 DS [id number] 12/18/24 09:41 DS Document 12/25/24 09:42 [facility] [id number] 12/25/24 09:54 [facility] Document 01/02/25 08:59 KW [id number] 01/02/25 09:05 KW Document 01/09/25 10:19 KW [id number] 01/09/25 10:29 KW Document 01/16/25 10:26 KW [id number] 01/16/25 10:39 KW 12/18/24 12/18/24 12/25/24 09:27 09:40 09:42 - Today's Visit Information Type of service Follow-up Visit Follow-up Visit (Physician/AERIAL SURVEY TECHNICIAN (Physician/AERIAL SURVEY TECHNICIAN ) ) Arrival Mode Wheelchair Wheelchair Transfer Assistance Shira Lift Shira Lift Transfer Assist (Other) 3 Patient Identification Verified (Name & Yes Yes ) Patient Requires Transmission-Based No No Precautions Height and Weight Height 5 ft 8 in Weight 146.057 kg Weight in Pounds 322.0 lbs Body Mass Index (BMI) 48.9 48.9 BMI Classification Obese Obese Vital Signs Temperature (97.8 F-99.1 F) 97.6 F L 97 F L Temperature Source Temporal Temporal Pulse Rate (60-100) 74 65 Pulse Location Monitor Monitor Respiratory Rate (12-18) 16 16 Respiratory rate source Observation Observation Oxygen Delivery Method Room Air Room Air Blood Pressure (90/60-120/80) 135/60 H 130/85 H Blood Pressure Mean (mm Hg) 85 100 Source Monitor Monitor Position Sitting Sitting Blood Pressure Location Left Arm Right Arm History Since Last [...] Has compression in place as prescribed N/A Has offloadiing in place as prescribed Yes Yes Experienced any changes in pain level or No No management Left Footwear Diabetic Shoe Diabetic Shoe Right Footwear Total Contact Total Contact Cast Cast Pain Scale: 0-10 Numeric Is Patient Pain Free? Yes Yes Yes 01/02/25 01/09/25 01/16/25 08:59 10:19 10:26 WC - Today's Visit Information Type of service Follow-up Visit Follow-up Visit Follow-up Visit (Physician/AERIAL SURVEY TECHNICIAN (Physician/AERIAL SURVEY TECHNICIAN (Physician/AERIAL SURVEY TECHNICIAN ) ) ) Arrival Mode Wheelchair Wheelchair Wheelchair Transfer Assistance Shira Lift Shira Lift Shira Lift Transfer Assist (Other) Patient Identification Verified (Name & Yes Yes Yes ) Patient Requires Transmission-Based Precautions Height and Weight Height Weight Weight in Pounds Body Mass Index (BMI) 48.9 48.9 48.9 BMI Classification Obese Obese Obese Vital Signs Temperature (97.8 F-99.1 F) 96.0 F L 97.9 F 97.1 F L Temperature Source Temporal Temporal Temporal Pulse Rate (60-100) 98 80 73 Pulse Location Monitor Monitor Monitor Respiratory Rate (12-18) 18 18 18 Respiratory rate source Monitor Observation Observation Oxygen Delivery Method Room Air Room Air Room Air Blood Pressure (90/60-120/80) 157/98 H 120/70 108/55 L Blood Pressure Mean (mm Hg) 117 86 72 Source Monitor Monitor Monitor Position Sitting Sitting [...] management Left Footwear Regular Shoe Regular Shoe Total Contact Cast Right Footwear Total Contact Total Contact Regular Shoe Cast Cast Pain Scale: 0-10 Numeric Is Patient Pain Free? Yes Yes Yes WC - Nurse 1 - General Ulcer Measurement Start: 12/18/24 09:27 Freq: Status: Active Protocol: Activity Type Activity Date Activity User E-sign Co-sign Detail Recorded Client Recorded Date Recorded By Document 12/18/24 09:27 [facility] [id number] 12/18/24 09:35 [facility] Document 12/25/24 09:42 [facility] [id number] 12/25/24 09:54 [facility] Document 01/02/25 08:59 KW [id number] 01/02/25 09:05 KW Document 01/09/25 10:19 KW [id number] 01/09/25 10:29 KW Document 01/16/25 10:26 KW [id number] 01/16/25 10:39 KW 12/18/24 12/25/24 01/02/25 09:27 09:42 08:59 Wound Center Nurse 1 #6 LT HEEL -Current Size (cm) - Length -Current Size (cm) - Width -Current Size (cm) - Depth -Total Square Cm -Date of Last Picture (Recall this field) -Exudate Amt -Exudate Type -Wound Margin -Granulation Amt -Granulation Quality -Necrosis Amt -Necrotic Tissue Type -Texture (Lesvia-wound Skin Appearance) -Moisture (Lesvia-wound Skin Appearance) -Color (Lesvia-wound Skin Appearance) -Temperature (Lesvia-wound Skin Appearance) -Tenderness on Palpation (Lesvia-wound Skin Appearance) -Ulcer Cleansing -Foul Odor after Cleansing -Anesthetic Used 5-left 2nd toe -Current Size (cm) - Length -Current Size (cm) - Width -Current Size (cm) - Depth -Total Square Cm -Date of Last Picture (Recall this field) -Exudate Amt -Exudate Type -Wound Margin -Granulation Amt -Granulation Quality -Necrosis Amt -Necrotic Tissue Type -Texture (Lesvia-wound Skin Appearance) -Moisture (Lesvia-wound Skin Appearance) -Color (Lesvia-wound Skin Appearance) -Temperature (Lesvia-wound Skin Appearance) -Tenderness on Palpation (Lesvia-wound Skin Appearance) -Ulcer Cleansing -Foul Odor after Cleansing -Anesthetic Used 4.R heel medial -Combined with other wound No No -Current Size (cm) - Length 1.6 0.9 1 -Current Size (cm) - Width 2.5 2.3 1.7 -Current Size (cm) - Depth 0.1 0.2 0.2 -Total Square Cm 4.00 2.07 1.7 -Date of Last Picture (Recall this 12/18/24 12/25/24 01/02/25 field) -Photo Taken Yes Yes -Epithelialization Medium 34-66% -Tunneling No -Undermining/Tunneling No -Exudate Amt Medium Medium Medium -Exudate Type Serosanguineous Serosanguineous Serosanguineous -Wound Margin Flat & Intact Thickened Distinct, Outline Attached -Granulation Amt Medium (34-66%) Large (67-100%) Large (67-100%) -Granulation Quality Red Red [place],Red -Slough/Fibrin Yes -Necrosis Amt Medium (34-66%) Small (1-33%) -Necrotic Tissue Type Adherent Slough Adherent Slough -Texture (Lesvia-wound Skin Appearance) Assessed, Assessed Assessed Scarring -Moisture (Lesvia-wound Skin Appearance) Assessed,Dry/ Assessed Assessed,Dry/ Scaly Scaly -Color (Lesvia-wound Skin Appearance) Assessed Assessed Assessed -Temperature (Lesvia-wound Skin No Abnormality No Abnormality No Abnormality Appearance) (Pt Warm) (Pt Warm) (Pt Warm) -Tenderness on Palpation (Lesvia-wound No No No Skin Appearance) -Ulcer Cleansing Soap and Water Soap and Water Soap and Water -Foul Odor after Cleansing No No No -Anesthetic Used 5% Lidocaine 5% Lidocaine Cetacaine Gel Gel Right Calf (cm) Right Ankle (cm) Left Calf (cm) Left Ankle (cm) 01/09/25 01/16/25 10:19 10:26 Wound Center Nurse 1 #6 LT HEEL -Current Size (cm) - Length 0.1 0.3 -Current Size (cm) - Width 0.1 0.3 -Current Size (cm) - Depth 0.1 0.1 -Total Square Cm 0.01 0.09 -Date of Last Picture (Recall this 01/09/25 01/16/25 field) -Exudate Amt Medium Small -Exudate Type Serosanguineous Serosanguineous -Wound Margin Thickened Distinct, Outline Attached -Granulation Amt Small (1-33%) None Present (0 %) -Granulation Quality [place] -Necrosis Amt Large (67-100%) Large (67-100%) -Necrotic Tissue Type Adherent Slough Eschar -Texture (Lesvia-wound Skin Appearance) Assessed Assessed -Moisture (Lesvia-wound Skin Appearance) Assessed Assessed -Color (Lesvia-wound Skin Appearance) Assessed, Assessed Erythema -Temperature (Lesvia-wound Skin No Abnormality No Abnormality Appearance) (Pt Warm) (Pt Warm) -Tenderness on Palpation (Lesvia-wound No No Skin Appearance) -Ulcer Cleansing Rinsed/ Soap and Water Irrigated with Saline -Foul Odor after Cleansing No No -Anesthetic Used 5% Lidocaine 5% Lidocaine Gel Gel 5-left 2nd toe -Current Size (cm) - Length 0.1 0.2 -Current Size (cm) - Width 0.1 0.2 -Current Size (cm) - Depth 0.1 0.1 -Total Square Cm 0.01 0.04 -Date of Last Picture (Recall this 01/09/25 01/16/25 field) -Exudate Amt Medium Small -Exudate Type Serosanguineous Serosanguineous -Wound Margin Distinct, Distinct, Outline Outline Attached Attached -Granulation Amt Large (67-100%) Small (1-33%) -Granulation Quality [place] Red -Necrosis Amt Small (1-33%) Medium (34-66%) -Necrotic Tissue Type Adherent Slough Eschar -Texture (Lesvia-wound Skin Appearance) Assessed Assessed -Moisture (Lesvia-wound Skin Appearance) Maceration Assessed -Color (Lesvia-wound Skin Appearance) Assessed, Assessed Erythema -Temperature (Lesvia-wound Skin No Abnormality No Abnormality Appearance) (Pt Warm) (Pt Warm) -Tenderness on Palpation (Lesvia-wound No No Skin Appearance) -Ulcer Cleansing Rinsed/ Soap and Water Irrigated with Saline -Foul Odor after Cleansing No -Anesthetic Used 5% Lidocaine 5% Lidocaine Gel Gel 4.R heel medial -Combined with other wound -Current Size (cm) - Length 0.1 1.5 -Current Size (cm) - Width 0.1 2.5 -Current Size (cm) - Depth 0.1 0.1 -Total Square Cm 0.01 3.75 -Date of Last Picture (Recall this 01/09/25 01/16/25 field) -Photo Taken -Epithelialization -Tunneling -Undermining/Tunneling -Exudate Amt Medium Small -Exudate Type Serosanguineous Serosanguineous -Wound Margin Thickened Distinct, Outline Attached -Granulation Amt Medium (34-66%) None Present (0 %) -Granulation Quality [place] -Slough/Fibrin -Necrosis Amt Medium (34-66%) Large (67-100%) -Necrotic Tissue Type Adherent Slough Eschar -Texture (Lesvia-wound Skin Appearance) Assessed,Callus Assessed -Moisture (Lesvia-wound Skin Appearance) Assessed Assessed -Color (Lesvia-wound Skin Appearance) Assessed Assessed -Temperature (Lesvia-wound Skin No Abnormality No Abnormality Appearance) (Pt Warm) (Pt Warm) -Tenderness on Palpation (Lesvia-wound No No Skin Appearance) -Ulcer Cleansing Soap and Water Soap and Water -Foul Odor after Cleansing No No -Anesthetic Used 5% Lidocaine 5% Lidocaine Gel Gel Right Calf (cm) 32.0 Right Ankle (cm) 26.5 Left Calf (cm) 39.5 Left Ankle (cm) 25 WC - Nurse 2 - General Ulcer CM Notes Start: 12/18/24 09:27 Freq: Status: Active Protocol: Activity Type Activity Date Activity User E-sign Co-sign Detail Recorded Client Recorded Date Recorded By Document 12/18/24 09:49 DS [id number] 12/18/24 10:00 DS Edit Result 12/18/24 09:49 DS (1) [id number] 12/18/24 10:07 DS Document 12/25/24 10:09 DS [id number] 12/25/24 10:19 DS Edit Result 12/25/24 10:09 DS (2) [id number] 12/25/24 10:49 DS Edit Result 12/25/24 10:09 DS (3) [id number] 12/25/24 10:53 DS Document 01/02/25 09:06 JF [id number] 01/02/25 09:16 JF Document 01/09/25 10:38 JF [id number] 01/09/25 10:44 JF Document 01/16/25 10:47 JF [id number] 01/16/25 10:53 JF (1) 4.R heel medial - Wound Comment(s) => sutures removed (2) 4.R heel medial - Type of Bioengineered Tissue => Epifix - Expiration Date => 06/20/29 - Product Lot Number => [id number] - Percent Used => 100 - Lot number of Saline Used => [id number] - Apply Skin Sub - 1st 25 sq cm - Feet => 1 - Epifix Application 1-4 (per sq cm) => 4 - Wound Comment(s) => pressure dressing used for 10mins (3) 4.R heel medial - Offloading => Yes - Type of Offloading => Total Contact Cast => (TCC) - Right ($) - Total Non-Weight Bearing to => Right Lower => Extremity - Assistive Device(s) => Wheelchair - Pressure Reduction => Wheelchair cushion 12/18/24 12/25/24 01/02/25 09:49 10:09 09:06 Wound Center Nurse 2 #6 LT HEEL -Time -Correct Patient -Correct Side, Site, Position -Correct Procedure -Procedure Performed -Type of Procedure -Clinical Debridement -Tissue Removed -Post Debridement (cm) - Length -Post Debridement (cm) - Width -Post Debridement (cm) - Depth -Total Square (Post) (cm) -Area of Debridement (cm) - Length -Area of Debridement (cm) - Width -Total Square (Area) (cm) -Tunneling -Undermining/Tunneling -Circular Undermining -Wound/Ulcer Outcome -Ulcer Cleansing -Foul Odor after Cleansing -Bioengineered Tissue -Bleeding Controlled with -Treatment Response -Offloading -Debridement - Subq, 1st 20sq cm 5-left 2nd toe -Time 09:15 -Correct Patient Yes -Correct Side, Site, Position Yes -Correct Procedure Yes -Procedure Performed Yes -Type of Procedure Debridement -Clinical Debridement Muscle / Fascia -Tissue Removed Muscle -Post Debridement (cm) - Length 0.7 -Post Debridement (cm) - Width 0.7 -Post Debridement (cm) - Depth 0.2 -Total Square (Post) (cm) 0.49 -Area of Debridement (cm) - Length 0.7 -Area of Debridement (cm) - Width 0.7 -Total Square (Area) (cm) 0.49 -Tunneling No -Undermining/Tunneling No -Circular Undermining No -Wound/Ulcer Outcome Not Healed -Ulcer Cleansing Rinsed/ Irrigated with Saline -Foul Odor after Cleansing No -Bioengineered Tissue No -Bleeding Controlled with Pressure -Treatment Response Procedure Tolerated Well -Offloading No -Debridement - Subq, 1st 20sq cm -Debridement - Muscle / Fascia, 1st Yes 20sq cm 4.R heel medial -Time 09:50 10:09 09:06 -Correct Patient Yes Yes Yes -Correct Side, Site, Position Yes Yes Yes -Correct Procedure Yes Yes Yes -Procedure Performed Yes Yes Yes -Type of Procedure Debridement Debridement Debridement -Clinical Debridement Subcutaneous Subcutaneous Subcutaneous -Tissue Removed Subcutaneous Subcutaneous Subcutaneous -Post Debridement (cm) - Length 1.5 1.5 1 -Post Debridement (cm) - Width 2.7 2.1 1.8 -Post Debridement (cm) - Depth 0.2 0.2 0.2 -Total Square (Post) (cm) 4.05 3.15 1.8 -Area of Debridement (cm) - Length 1.5 1.5 1.0 -Area of Debridement (cm) - Width 2.7 2.1 1.8 -Total Square (Area) (cm) 4.05 3.15 1.80 -Tunneling No No No -Undermining/Tunneling No No No -Circular Undermining No No No -Wound/Ulcer Outcome Not Healed Not Healed Not Healed -Ulcer Cleansing Rinsed/ Rinsed/ Irrigated with Irrigated with Saline Saline -Foul Odor after Cleansing No No No -Bioengineered Tissue No No Yes -Type of Bioengineered Tissue Epicord Epifix Epifix 18mm Disc -Expiration Date 04/20/29 06/20/2908/18/30 -Product Lot Number [id number] -Percent Used 100 100 100 -Lot number of Saline Used [id number] -Bleeding Controlled with Pressure Pressure,Silver Pressure Nitrate ($) -Treatment Response Procedure Procedure Procedure Tolerated Well Tolerated Well Tolerated Well -Offloading Yes Yes Yes -Type of Offloading Total Contact Total Contact Total Contact Cast (TCC) - Cast (TCC) - Cast (TCC) - Right ($) Right ($) Right ($) -Total Non-Weight Bearing to Right Lower Extremity -Assistive Device(s) Wheelchair -Pressure Reduction Wheelchair cushion -Debridement - Subq, 1st 20sq cm No No No -Apply Skin Sub - 1st 25 sq cm - Feet 1 1 1 -Epicord Application 1-4 (per sq cm) 6 -Epifix Application 1-4 (per sq cm) 4 -Epifix 18mm Disc Application 1-4 3 -Wound Comment(s) sutures removed pressure dressing used for 10mins Pain Scale: 0-10 Numeric Is Patient Pain Free? Yes Yes Yes 01/09/25 01/16/25 10:38 10:47 Wound Center Nurse 2 #6 LT HEEL -Time 10:38 -Correct Patient Yes Yes -Correct Side, Site, Position Yes No -Correct Procedure Yes No -Procedure Performed Yes No -Type of Procedure Debridement -Clinical Debridement Subcutaneous -Tissue Removed Subcutaneous -Post Debridement (cm) - Length 0.4 0 -Post Debridement (cm) - Width 0.5 0 -Post Debridement (cm) - Depth 0.1 0 -Total Square (Post) (cm) 0.20 0 -Area of Debridement (cm) - Length 0.4 0 -Area of Debridement (cm) - Width 0.5 0 -Total Square (Area) (cm) 0.20 0 -Tunneling No -Undermining/Tunneling No -Circular Undermining No -Wound/Ulcer Outcome Not Healed Healed- Epithelialized -Ulcer Cleansing Rinsed/ Irrigated with Saline -Foul Odor after Cleansing No -Bioengineered Tissue No -Bleeding Controlled with Pressure -Treatment Response Procedure Tolerated Well -Offloading No -Debridement - Subq, 1st 20sq cm Yes 5-left 2nd toe -Time 10:39 -Correct Patient Yes Yes -Correct Side, Site, Position Yes No -Correct Procedure Yes No -Procedure Performed Yes No -Type of Procedure Debridement -Clinical Debridement Subcutaneous -Tissue Removed Subcutaneous -Post Debridement (cm) - Length 0.4 0 -Post Debridement (cm) - Width 0.6 0 -Post Debridement (cm) - Depth 0.1 0 -Total Square (Post) (cm) 0.24 0 -Area of Debridement (cm) - Length 0.4 0 -Area of Debridement (cm) - Width 0.6 0 -Total Square (Area) (cm) 0.24 0 -Tunneling No -Undermining/Tunneling No -Circular Undermining No -Wound/Ulcer Outcome Not Healed Healed- Epithelialized -Ulcer Cleansing Rinsed/ Irrigated with Saline -Foul Odor after Cleansing No -Bioengineered Tissue No -Bleeding Controlled with Pressure -Treatment Response Procedure Tolerated Well -Offloading No -Debridement - Subq, 1st 20sq cm No -Debridement - Muscle / Fascia, 1st 20sq cm 4.R heel medial -Time 10:43 10:47 -Correct Patient Yes Yes -Correct Side, Site, Position Yes Yes -Correct Procedure Yes Yes -Procedure Performed Yes Yes -Type of Procedure Debridement Debridement -Clinical Debridement Subcutaneous Subcutaneous -Tissue Removed Subcutaneous Subcutaneous -Post Debridement (cm) - Length 1.2 0.6 -Post Debridement (cm) - Width 1.3 1.1 -Post Debridement (cm) - Depth 0.1 0.1 -Total Square (Post) (cm) 1.56 0.66 -Area of Debridement (cm) - Length 1.2 0.6 -Area of Debridement (cm) - Width 1.3 1.1 -Total Square (Area) (cm) 1.56 0.66 -Tunneling No No -Undermining/Tunneling No No -Circular Undermining No No -Wound/Ulcer Outcome Not Healed Not Healed -Ulcer Cleansing Rinsed/ Rinsed/ Irrigated with Irrigated with Saline Saline -Foul Odor after Cleansing No No -Bioengineered Tissue Yes Yes -Type of Bioengineered Tissue Epifix 18mm Epifix 18mm Disc Disc -Expiration Date 08/18/29 09/18/29 -Product Lot Number [id number] -Percent Used 100 100 -Lot number of Saline Used [id number] -Bleeding Controlled with Pressure Pressure -Treatment Response Procedure Procedure Tolerated Well Tolerated Well -Offloading Yes Yes -Type of Offloading Total Contact Total Contact Cast (TCC) - Cast (TCC) - Right ($) Right ($) -Total Non-Weight Bearing to -Assistive Device(s) -Pressure Reduction -Debridement - Subq, 1st 20sq cm No No -Apply Skin Sub - 1st 25 sq cm - Feet 1 1 -Epicord Application 1-4 (per sq cm) -Epifix Application 1-4 (per sq cm) -Epifix 18mm Disc Application 1-4 3 3 -Wound Comment(s) Pain Scale: 0-10 Numeric Is Patient Pain Free? Yes Yes WC - Nurse 3 - General Ulcer D/C NN Start: 12/18/24 09:27 Freq: Status: Active Protocol: Activity Type Activity Date Activity User E-sign Co-sign Detail Recorded Client Recorded Date Recorded By Document 12/18/24 10:14 [id number] 12/18/24 10:16 Document 12/25/24 11:17 BM [id number] 12/25/24 11:18 BM Document 01/02/25 09:23 KW [id number] 01/02/25 09:24 KW Document 01/09/25 11:12 KW [id number] 01/09/25 11:13 KW Document 01/16/25 11:02 KW [id number] 01/16/25 11:02 KW 12/18/24 12/25/24 01/02/25 10:14 11:17 09:23 Wound Care Center Nurse 3 #6 LT HEEL -Other Dressing -Primary Dressing Covered/Secured with 5-left 2nd toe -Ulcer Cleansing Rinsed/ Irrigated with Saline -Other Dressing paint with betadine -Primary Dressing Covered/Secured with Dry Gauze, Secured with Tape 4.R heel medial -Primary Dressing Applied AMD Dressing Optilok 5x5 1/2 AMD Dressing 4x4 4x4 -Other Dressing epicord, tcc 3 AMD IS 4X8 -Primary Dressing Covered/Secured with Dry Gauze, Secured with Secured with Tape Tape -Other Covering betadine to sutured sites on legs. -AMD Dressing 4x4 2 1 -Optilok 5x5 1/2 1 -Wound Comment(s) TCC APPLIED BY RUSSEL AND Treatment Response Procedure Tolerated Well Pain Scale: 0-10 Numeric Is Patient Pain Free? Yes Yes Yes WC - Visit Discharge Discharge Condition Stable Stable Stable Ambulatory Status Wheelchair Wheelchair Wheelchair Transportation Private Auto ecf Medication Reconcilliation completed & Yes No provided to patient/care provider Clinical Summary of Care Provided Yes Yes Notes: shira lift x2. Facility Type Nursing Home Care Facility 01/09/25 01/16/25 11:12 11:02 Wound Care Center Nurse 3 #6 LT HEEL -Other Dressing BETADINE PAINTED -Primary Dressing Covered/Secured with Dry Gauze & Roll Gauze, Secured with Tape 5-left 2nd toe -Ulcer Cleansing -Other Dressing BETADINE PAINTED -Primary Dressing Covered/Secured with Dry Gauze, Secured with Tape 4.R heel medial -Primary Dressing Applied AMD Dressing AMD Dressing 4x4 4x4 -Other Dressing -Primary Dressing Covered/Secured with Secured with Dry Gauze & Tape Roll Gauze, Secured with Tape -Other Covering -AMD Dressing 4x4 1 1 -Optilok 5x5 1/2 -Wound Comment(s) Treatment Response Pain Scale: 0-10 Numeric Is Patient Pain Free? Yes Yes WC - Visit Discharge Discharge Condition Stable Stable Ambulatory Status Wheelchair Wheelchair Transportation Medication Reconcilliation completed & No No provided to patient/care provider Clinical Summary of Care Provided Yes Yes Notes: TCC REAPPLIED [facility] Type Assessment/Plan Assessment/Plan (1) Non-pressure chronic ulcer of other part of right foot with fat layer exposed: CODE(S): L97.512 - Non-pressure chronic ulcer of other part of right foot with fat layer exposed PLAN: Patient was examined and evaluated. All findings were discussed with the patient. All questions were answered to the patient's satisfaction. Excisional debridement down to including subcutaneous tissue with a number 3 mm dermal curette to the right heel full-thickness wound done without incident. Predebridement measurement was sanguinous crust postdebridement measurement was 0.6 x 1.1 x 0.1 cm. EpiFix 18 mm was applied to the right heel full-thickness ulceration with 100% use. The graft site was free and clear of any infection. The wound/skin graft substitute was dressed with nonadherent bandage secured in place with Steri-Strips followed by bolster dressing as well as a total contact cast at 90 degrees. Betadine paint was applied to the left heel and left second digit covered with sterile Band-Aid. Patient will continue daily dressing changes to the left foot. Patient's weightbearing status can be as tolerated with boot donned to the totalcontact cast and full weightbearing with regular shoe to the left foot. Patient will continue strict pressure control. Patient will continue antibiotics as prescribed until gone. Follow-up at the wound care center with Dr. Cerda in 1 week (2) Non-pressure chronic ulcer of other part of left foot with fat layer exposed: CODE(S): L97.522 - Non-pressure chronic ulcer of other part of left foot with fat layer exposed 01/16/25 1337 <Electronically signed by León Cerda DPM> Cosigner Signature (if applicable): CC: ~ Signed [facility] Work Phone: [phone]) [phone] Progress note Author León Cerda [facility] Note Date/Time January 09, 2025 1:29 pm [facility] [address] [place] [id number] Progress Note - Wound Care 01/09/25 1325 MR#: [id number] Acct: [id number] Name: LANI ZARAGOZA Rep #:[id number] : 1955 69 From: León Pompa PM PCP: Dr. Bernabe Reese MD Status:RE G RCR Location: History of Present Illness Date of Service: 01/09/25 Chief Complaint: Diabetic right heel ulceration History of Wound: This is a 69-year-old obese, diabetic male patient whose care has been assumed from Dr. Ramon Garcia, who is departing from our staff. The patient has a chronic ulceration on his right heel, associated with poorly controlled type 2 diabetes mellitus and diabetic polyneuropathy. The patient suffers from multiple other pre-existing medical problems, which are documented herein. The patient's most recent management has been by means of serial debridements, with an EpiFix allograft having been applied at the patient's prior visit on December 11, 2024. Offloading measures and total contact casting have also been a recent cornerstone of the patient's management. 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 Progress of Wound: Stable right heel wound no sign of infection. New wound to the left heel and left second digit. Subjective Subjective Patient is a 69-year-old diabetic male presented wound care center today follow- up evaluation with amniotic skin graft substitute to the lateral right heel full-thickness wound with total contact cast application. Patient states that he has a new injury to the left heel secondary to rubbing on the total contact cast. He will not be prescribed doxycycline 100 mg twice daily secondary to culture and sensitivity for microbiology. Blood sugar well-controlled. Denies constitutional symptoms. No other pedal complaints at this time. Objective Data Objective Data Vital Signs: Vital Signs Temp Pulse Resp BP O2 Del Method 97.9 F 80 18 120/70 Room Air 01/09/25 10:19 01/09/25 10:19 01/09/25 10:19 01/09/25 10:19 01/09/25 10:19 Oxygen Delivery Method Room Air Weight: 146.057 kg Body Mass Index (BMI) 48.9 Lab / Micro Data Micro: Microbiology 01/02/25 14:14 Ulcer, Decubitus - Toe Gram Stain - Final 01/02/25 14:14 Ulcer, Decubitus - Toe Wound Culture - Final Meth. resistant Staph. aureus 01/02/25 14:14 Ulcer, Decubitus - Toe Anaerobic Culture - Final No anaerobic bacteria isolated. Physical Exam Narrative Vascular: DP and PT pulse are palpable. CFT is brisk. Skin temperature is warmto warm from proximal ankles to distal digit bilateral. Nonpitting edema with hemosiderin deposit appreciated bilateral extremity. Evidence of erythema to the left heel and left second digit. Neurological:. Light touch is intact. Protective station is diminished. Patient does not respond to painful stimuli. Dermatological: Full-thickness wound to the right heel measuring 1.2 x 1.3 x 0.1cm wound base is granular with no sign of infection. Evidence of blanchable erythema to the left second digit with full-thickness wound measuring 0.4 x 0.6 x 0.1 cm. Wound base is fibrogranular in nature. Full-thickness wound to the left heel with periwound erythema measuring 0.4 x 0.5 x 0.1 cm. Excisional debridement down to including subcutaneous tissue with a number 3 mm dermal curette to the right heel full-thickness wound done without incident. Predebridement measurement was 1.0 x 1.1 x 0.1 cm. Postdebridement measurement was 1.2 x 1.3 x 0.1 cm. EpiFix 18 mm was applied to the right heel full-thickness ulceration with 100% use. The graft site was free and clear of any infection. The wound/skin graft substitute was dressed with nonadherent bandage secured in place with Steri-Strips followed by bolster dressing as well as a total contact cast at 90 degrees. Excisional debridement down to including subcutaneous tissue of the full- thickness wound to the left second digit with a number 3 mm dermal curette done without incident. Predebridement measurement was eschar. Postdebridement measurement is 0.4 x 0.6 x 0.1 cm. Excisional debridement down to and including subcutaneous tissue of the full-thickness wound to the left heel with a number 3 mm dermal curette done without incident. Predebridement measurement was 0.3 x 0.3 x 0.1 cm. Postdebridement measurement is 0.4 x 0.5 x 0.1 cm. Musculoskeletal: No pain to palpation to full-thickness wound bilateral. No pain with calf pressure. Debridement Note Debridement Note Debridement Free Text: Excisional debridement down to including subcutaneous tissue with a number 3 mm dermal curette to the right heel full-thickness wound done without incident. Predebridement measurement was 1.0 x 1.1 x 0.1 cm. Postdebridement measurement was 1.2 x 1.3 x 0.1 cm. EpiFix 18 mm was applied to the right heel full-thickness ulceration with 100% use. The graft site was free and clear of any infection. The wound/skin graft substitute was dressed with nonadherent bandage secured in place with Steri-Strips followed by bolster dressing as well as a total contact cast at 90 degrees. Excisional debridement down to including subcutaneous tissue of the full- thickness wound to the left second digit with a number 3 mm dermal curette done without incident. Predebridement measurement was eschar. Postdebridement measurement is 0.4 x 0.6 x 0.1 cm. Excisional debridement down to and including subcutaneous tissue of the full-thickness wound to the left heel with a number 3 mm dermal curette done without incident. Predebridement measurement was 0.3 x 0.3 x 0.1 cm. Postdebridement measurement is 0.4 x 0.5 x 0.1 cm. Post-Debridement Measurements and Additional Note: Post-Debridement Measurements/Treatment WC - Nurse 1 - General Ulcer Assessment Start: 12/18/24 09:27 Freq: Status: Active Protocol: BUDDY.[email or web address] Activity Type Activity Date Activity User E-sign Co-sign Detail Recorded Client Recorded Date Recorded By Document 12/18/24 09:27 BMF [id number] 12/18/24 09:35 BMF Document 12/18/24 09:40 DS [id number] 12/18/24 09:41 DS Document 12/25/24 09:42 BMF [id number] 12/25/24 09:54 BMF Document 01/02/25 08:59 KW [id number] 01/02/25 09:05 KW Document 01/09/25 10:19 KW [id number] 01/09/25 10:29 KW 12/18/24 12/18/24 12/25/24 09:27 09:40 09:42 WC - Today's Visit Information Type of service Follow-up Visit Follow-up Visit (Physician/AERIAL SURVEY TECHNICIAN (Physician/AERIAL SURVEY TECHNICIAN ) ) Arrival Mode Wheelchair Wheelchair Transfer Assistance Shira Lift Shira Lift Transfer Assist (Other) 3 Patient Identification Verified (Name & Yes Yes ) Patient Requires Transmission-Based No No Precautions Height and Weight Height 5 ft 8 in Weight 146.057 kg Weight in Pounds 322.0 lbs Body Mass Index (BMI) 48.9 48.9 BMI Classification Obese Obese Vital Signs Temperature (97.8 F-99.1 F) 97.6 F L 97 F L Temperature Source Temporal Temporal Pulse Rate (60-100) 74 65 Pulse Location Monitor Monitor Respiratory Rate (12-18) 16 16 Respiratory rate source Observation Observation Oxygen Delivery Method Room Air Room Air Blood Pressure (90/60-120/80) 135/60 H 130/85 H Blood Pressure Mean (mm Hg) 85 100 Source Monitor Monitor Position Sitting Sitting Blood Pressure Location Left Arm Right Arm History Since Last [...] Has compression in place as prescribed N/A Has offloadiing in place as prescribed Yes Yes Experienced any changes in pain level or No No management Left Footwear Diabetic Shoe Diabetic Shoe Right Footwear Total Contact Total Contact Cast Cast Pain Scale: 0-10 Numeric Is Patient Pain Free? Yes Yes Yes 01/02/25 01/09/25 08:59 10:19 WC - Today's Visit Information Type of service Follow-up Visit Follow-up Visit (Physician/AERIAL SURVEY TECHNICIAN (Physician/AERIAL SURVEY TECHNICIAN ) ) Arrival Mode Wheelchair Wheelchair Transfer Assistance Shira Lift Shira Lift Transfer Assist (Other) Patient Identification Verified (Name & Yes Yes ) Patient Requires Transmission-Based Precautions Height and Weight Height Weight Weight in Pounds Body Mass Index (BMI) 48.9 48.9 BMI Classification Obese Obese Vital Signs Temperature (97.8 F-99.1 F) 96.0 F L 97.9 F Temperature Source Temporal Temporal Pulse Rate (60-100) 98 80 Pulse Location Monitor Monitor Respiratory Rate (12-18) 18 18 Respiratory rate source Monitor Observation Oxygen Delivery Method Room Air Room Air Blood Pressure (90/60-120/80) 157/98 H 120/70 Blood Pressure Mean (mm Hg) 117 86 Source Monitor Monitor Position Sitting Sitting Blood [...] Footwear Regular Shoe Regular Shoe Right Footwear Total Contact Total Contact Cast Cast Pain Scale: 0-10 Numeric Is Patient Pain Free? Yes Yes - Nurse 1 - General Ulcer Measurement Start: 12/18/24 09:27 Freq: Status: Active Protocol: Activity Type Activity Date Activity User E-sign Co-sign Detail Recorded Client Recorded Date Recorded By Document 12/18/24 09:27 [facility] [id number] 12/18/24 09:35 [facility] Document 12/25/24 09:42 [facility] [id number] 12/25/24 09:54 [facility] Document 01/02/25 08:59 KW [id number] 01/02/25 09:05 KW Document 01/09/25 10:19 KW [id number] 01/09/25 10:29 KW 12/18/24 12/25/24 01/02/25 09:27 09:42 08:59 Wound Center Nurse 1 #6 LT HEEL -Current Size (cm) - Length -Current Size (cm) - Width -Current Size (cm) - Depth -Total Square Cm -Date of Last Picture (Recall this field) -Exudate Amt -Exudate Type -Wound Margin -Granulation Amt -Granulation Quality -Necrosis Amt -Necrotic Tissue Type -Texture (Lesvia-wound Skin Appearance) -Moisture (Lesvia-wound Skin Appearance) -Color (Lesvia-wound Skin Appearance) -Temperature (Lesvia-wound Skin Appearance) -Tenderness on Palpation (Lesvia-wound Skin Appearance) -Ulcer Cleansing -Foul Odor after Cleansing -Anesthetic Used 5-left 2nd toe -Current Size (cm) - Length -Current Size (cm) - Width -Current Size (cm) - Depth -Total Square Cm -Date of Last Picture (Recall this field) -Exudate Amt -Exudate Type -Wound Margin -Granulation Amt -Granulation Quality -Necrosis Amt -Necrotic Tissue Type -Texture (Lesvia-wound Skin Appearance) -Moisture (Lesvia-wound Skin Appearance) -Color (Lesvia-wound Skin Appearance) -Temperature (Lesvia-wound Skin Appearance) -Tenderness on Palpation (Lesvia-wound Skin Appearance) -Ulcer Cleansing -Foul Odor after Cleansing -Anesthetic Used 4.R heel medial -Combined with other wound No No -Current Size (cm) - Length 1.6 0.9 1 -Current Size (cm) - Width 2.5 2.3 1.7 -Current Size (cm) - Depth 0.1 0.2 0.2 -Total Square Cm 4.00 2.07 1.7 -Date of Last Picture (Recall this 12/18/24 12/25/24 01/02/25 field) -Photo Taken Yes Yes -Epithelialization Medium 34-66% -Tunneling No -Undermining/Tunneling No -Exudate Amt Medium Medium Medium -Exudate Type Serosanguineous Serosanguineous Serosanguineous -Wound Margin Flat & Intact Thickened Distinct, Outline Attached -Granulation Amt Medium (34-66%) Large (67-100%) Large (67-100%) -Granulation Quality Red Red [place],Red -Slough/Fibrin Yes -Necrosis Amt Medium (34-66%) Small (1-33%) -Necrotic Tissue Type Adherent Slough Adherent Slough -Texture (Lesvia-wound Skin Appearance) Assessed, Assessed Assessed Scarring -Moisture (Lesvia-wound Skin Appearance) Assessed,Dry/ Assessed Assessed,Dry/ Scaly Scaly -Color (Lesvia-wound Skin Appearance) Assessed Assessed Assessed -Temperature (Lesvia-wound Skin No Abnormality No Abnormality No Abnormality Appearance) (Pt Warm) (Pt Warm) (Pt Warm) -Tenderness on Palpation (Lesvia-wound No No No Skin Appearance) -Ulcer Cleansing Soap and Water Soap and Water Soap and Water -Foul Odor after Cleansing No No No -Anesthetic Used 5% Lidocaine 5% Lidocaine Cetacaine Gel Gel 01/09/25 10:19 Wound Center Nurse 1 #6 LT HEEL -Current Size (cm) - Length 0.1 -Current Size (cm) - Width 0.1 -Current Size (cm) - Depth 0.1 -Total Square Cm 0.01 -Date of Last Picture (Recall this 01/09/25 field) -Exudate Amt Medium -Exudate Type Serosanguineous -Wound Margin Thickened -Granulation Amt Small (1-33%) -Granulation Quality [place] -Necrosis Amt Large (67-100%) -Necrotic Tissue Type Adherent Slough -Texture (Lesvia-wound Skin Appearance) Assessed -Moisture (Lesvia-wound Skin Appearance) Assessed -Color (Lesvia-wound Skin Appearance) Assessed, Erythema -Temperature (Lesvia-wound Skin No Abnormality Appearance) (Pt Warm) -Tenderness on Palpation (Lesvia-wound No Skin Appearance) -Ulcer Cleansing Rinsed/ Irrigated with Saline -Foul Odor after Cleansing No -Anesthetic Used 5% Lidocaine Gel 5-left 2nd toe -Current Size (cm) - Length 0.1 -Current Size (cm) - Width 0.1 -Current Size (cm) - Depth 0.1 -Total Square Cm 0.01 -Date of Last Picture (Recall this 01/09/25 field) -Exudate Amt Medium -Exudate Type Serosanguineous -Wound Margin Distinct, Outline Attached -Granulation Amt Large (67-100%) -Granulation Quality [place] -Necrosis Amt Small (1-33%) -Necrotic Tissue Type Adherent Slough -Texture (Lesvia-wound Skin Appearance) Assessed -Moisture (Lesvia-wound Skin Appearance) Maceration -Color (Lesvia-wound Skin Appearance) Assessed, Erythema -Temperature (Lesvia-wound Skin No Abnormality Appearance) (Pt Warm) -Tenderness on Palpation (Lesvia-wound No Skin Appearance) -Ulcer Cleansing Rinsed/ Irrigated with Saline -Foul Odor after Cleansing No -Anesthetic Used 5% Lidocaine Gel 4.R heel medial -Combined with other wound -Current Size (cm) - Length 0.1 -Current Size (cm) - Width 0.1 -Current Size (cm) - Depth 0.1 -Total Square Cm 0.01 -Date of Last Picture (Recall this 01/09/25 field) -Photo Taken -Epithelialization -Tunneling -Undermining/Tunneling -Exudate Amt Medium -Exudate Type Serosanguineous -Wound Margin Thickened -Granulation Amt Medium (34-66%) -Granulation Quality [place] -Slough/Fibrin -Necrosis Amt Medium (34-66%) -Necrotic Tissue Type Adherent Slough -Texture (Lesvia-wound Skin Appearance) Assessed,Callus -Moisture (Lesvia-wound Skin Appearance) Assessed -Color (Lesvia-wound Skin Appearance) Assessed -Temperature (Lesvia-wound Skin No Abnormality Appearance) (Pt Warm) -Tenderness on Palpation (Lesvia-wound No Skin Appearance) -Ulcer Cleansing Soap and Water -Foul Odor after Cleansing No -Anesthetic Used 5% Lidocaine Gel WC - Nurse 2 - General Ulcer CM Notes Start: 12/18/24 09:27 Freq: Status: Active Protocol: Activity Type Activity Date Activity User E-sign Co-sign Detail Recorded Client Recorded Date Recorded By Document 12/18/24 09:49 DS [id number] 12/18/24 10:00 DS Edit Result 12/18/24 09:49 DS (1) [id number] 12/18/24 10:07 DS Document 12/25/24 10:09 DS [id number] 12/25/24 10:19 DS Edit Result 12/25/24 10:09 DS (2) [id number] 12/25/24 10:49 DS Edit Result 12/25/24 10:09 DS (3) [id number] 12/25/24 10:53 DS Document 01/02/25 09:06 JF [id number] 01/02/25 09:16 JF Document 01/09/25 10:38 JF [id number] 01/09/25 10:44 JF (1) 4.R heel medial - Wound Comment(s) => sutures removed (2) 4.R heel medial - Type of Bioengineered Tissue => Epifix - Expiration Date => 06/20/29 - Product Lot Number => [id number] - Percent Used => 100 - Lot number of Saline Used => [id number] - Apply Skin Sub - 1st 25 sq cm - Feet => 1 - Epifix Application 1-4 (per sq cm) => 4 - Wound Comment(s) => pressure dressing used for 10mins (3) 4.R heel medial - Offloading => Yes - Type of Offloading => Total Contact Cast => (TCC) - Right ($) - Total Non-Weight Bearing to => Right Lower => Extremity - Assistive Device(s) => Wheelchair - Pressure Reduction => Wheelchair cushion 12/18/24 12/25/24 01/02/25 09:49 10:09 09:06 Wound Center Nurse 2 #6 LT HEEL -Time -Correct Patient -Correct Side, Site, Position -Correct Procedure -Procedure Performed -Type of Procedure -Clinical Debridement -Tissue Removed -Post Debridement (cm) - Length -Post Debridement (cm) - Width -Post Debridement (cm) - Depth -Total Square (Post) (cm) -Area of Debridement (cm) - Length -Area of Debridement (cm) - Width -Total Square (Area) (cm) -Tunneling -Undermining/Tunneling -Circular Undermining -Wound/Ulcer Outcome -Ulcer Cleansing -Foul Odor after Cleansing -Bioengineered Tissue -Bleeding Controlled with -Treatment Response -Offloading -Debridement - Subq, 1st 20sq cm 5-left 2nd toe -Time 09:15 -Correct Patient Yes -Correct Side, Site, Position Yes -Correct Procedure Yes -Procedure Performed Yes -Type of Procedure Debridement -Clinical Debridement Muscle / Fascia -Tissue Removed Muscle -Post Debridement (cm) - Length 0.7 -Post Debridement (cm) - Width 0.7 -Post Debridement (cm) - Depth 0.2 -Total Square (Post) (cm) 0.49 -Area of Debridement (cm) - Length 0.7 -Area of Debridement (cm) - Width 0.7 -Total Square (Area) (cm) 0.49 -Tunneling No -Undermining/Tunneling No -Circular Undermining No -Wound/Ulcer Outcome Not Healed -Ulcer Cleansing Rinsed/ Irrigated with Saline -Foul Odor after Cleansing No -Bioengineered Tissue No -Bleeding Controlled with Pressure -Treatment Response Procedure Tolerated Well -Offloading No -Debridement - Subq, 1st 20sq cm -Debridement - Muscle / Fascia, 1st Yes 20sq cm 4.R heel medial -Time 09:50 10:09 09:06 -Correct Patient Yes Yes Yes -Correct Side, Site, Position Yes Yes Yes -Correct Procedure Yes Yes Yes -Procedure Performed Yes Yes Yes -Type of Procedure Debridement Debridement Debridement -Clinical Debridement Subcutaneous Subcutaneous Subcutaneous -Tissue Removed Subcutaneous Subcutaneous Subcutaneous -Post Debridement (cm) - Length 1.5 1.5 1 -Post Debridement (cm) - Width 2.7 2.1 1.8 -Post Debridement (cm) - Depth 0.2 0.2 0.2 -Total Square (Post) (cm) 4.05 3.15 1.8 -Area of Debridement (cm) - Length 1.5 1.5 1.0 -Area of Debridement (cm) - Width 2.7 2.1 1.8 -Total Square (Area) (cm) 4.05 3.15 1.80 -Tunneling No No No -Undermining/Tunneling No No No -Circular Undermining No No No -Wound/Ulcer Outcome Not Healed Not Healed Not Healed -Ulcer Cleansing Rinsed/ Rinsed/ Irrigated with Irrigated with Saline Saline -Foul Odor after Cleansing No No No -Bioengineered Tissue No No Yes -Type of Bioengineered Tissue Epicord Epifix Epifix 18mm Disc -Expiration Date 04/20/29 06/20/29 08/18/29 -Product Lot Number [id number] -Percent Used 100 100 100 -Lot number of Saline Used [id number] -Bleeding Controlled with Pressure Pressure,Silver Pressure Nitrate ($) -Treatment Response Procedure Procedure Procedure Tolerated Well Tolerated Well Tolerated Well -Offloading Yes Yes Yes -Type of Offloading Total Contact Total Contact Total Contact Cast (TCC) - Cast (TCC) - Cast (TCC) - Right ($) Right ($) Right ($) -Total Non-Weight Bearing to Right Lower Extremity -Assistive Device(s) Wheelchair -Pressure Reduction Wheelchair cushion -Debridement - Subq, 1st 20sq cm No No No -Apply Skin Sub - 1st 25 sq cm - Feet 1 1 1 -Epicord Application 1-4 (per sq cm) 6 -Epifix Application 1-4 (per sq cm) 4 -Epifix 18mm Disc Application 1-4 3 -Wound Comment(s) sutures removed pressure dressing used for 10mins Pain Scale: 0-10 Numeric Is Patient Pain Free? Yes Yes Yes 01/09/25 10:38 Wound Center Nurse 2 #6 LT HEEL -Time 10:38 -Correct Patient Yes -Correct Side, Site, Position Yes -Correct Procedure Yes -Procedure Performed Yes -Type of Procedure Debridement -Clinical Debridement Subcutaneous -Tissue Removed Subcutaneous -Post Debridement (cm) - Length 0.4 -Post Debridement (cm) - Width 0.5 -Post Debridement (cm) - Depth 0.1 -Total Square (Post) (cm) 0.20 -Area of Debridement (cm) - Length 0.4 -Area of Debridement (cm) - Width 0.5 -Total Square (Area) (cm) 0.20 -Tunneling No -Undermining/Tunneling No -Circular Undermining No -Wound/Ulcer Outcome Not Healed -Ulcer Cleansing Rinsed/ Irrigated with Saline -Foul Odor after Cleansing No -Bioengineered Tissue No -Bleeding Controlled with Pressure -Treatment Response Procedure Tolerated Well -Offloading No -Debridement - Subq, 1st 20sq cm Yes 5-left 2nd toe -Time 10:39 -Correct Patient Yes -Correct Side, Site, Position Yes -Correct Procedure Yes -Procedure Performed Yes -Type of Procedure Debridement -Clinical Debridement Subcutaneous -Tissue Removed Subcutaneous -Post Debridement (cm) - Length 0.4 -Post Debridement (cm) - Width 0.6 -Post Debridement (cm) - Depth 0.1 -Total Square (Post) (cm) 0.24 -Area of Debridement (cm) - Length 0.4 -Area of Debridement (cm) - Width 0.6 -Total Square (Area) (cm) 0.24 -Tunneling No -Undermining/Tunneling No -Circular Undermining No -Wound/Ulcer Outcome Not Healed -Ulcer Cleansing Rinsed/ Irrigated with Saline -Foul Odor after Cleansing No -Bioengineered Tissue No -Bleeding Controlled with Pressure -Treatment Response Procedure Tolerated Well -Offloading No -Debridement - Subq, 1st 20sq cm No -Debridement - Muscle / Fascia, 1st 20sq cm 4.R heel medial -Time 10:43 -Correct Patient Yes -Correct Side, Site, Position Yes -Correct Procedure Yes -Procedure Performed Yes -Type of Procedure Debridement -Clinical Debridement Subcutaneous -Tissue Removed Subcutaneous -Post Debridement (cm) - Length 1.2 -Post Debridement (cm) - Width 1.3 -Post Debridement (cm) - Depth 0.1 -Total Square (Post) (cm) 1.56 -Area of Debridement (cm) - Length 1.2 -Area of Debridement (cm) - Width 1.3 -Total Square (Area) (cm) 1.56 -Tunneling No -Undermining/Tunneling No -Circular Undermining No -Wound/Ulcer Outcome Not Healed -Ulcer Cleansing Rinsed/ Irrigated with Saline -Foul Odor after Cleansing No -Bioengineered Tissue Yes -Type of Bioengineered Tissue Epifix 18mm Disc -Expiration Date 08/18/29 -Product Lot Number [id number] -Percent Used 100 -Lot number of Saline Used [id number] -Bleeding Controlled with Pressure -Treatment Response Procedure Tolerated Well -Offloading Yes -Type of Offloading Total Contact Cast (TCC) - Right ($) -Total Non-Weight Bearing to -Assistive Device(s) -Pressure Reduction -Debridement - Subq, 1st 20sq cm No -Apply Skin Sub - 1st 25 sq cm - Feet 1 -Epicord Application 1-4 (per sq cm) -Epifix Application 1-4 (per sq cm) -Epifix 18mm Disc Application 1-4 3 -Wound Comment(s) Pain Scale: 0-10 Numeric Is Patient Pain Free? Yes WC - Nurse 3 - General Ulcer D/C NN Start: 12/18/24 09:27 Freq: Status: Active Protocol: Activity Type Activity Date Activity User E-sign Co-sign Detail Recorded Client Recorded Date Recorded By Document 12/18/24 10:14 [id number] 12/18/24 10:16 Document 12/25/24 11:17 [facility] [id number] 12/25/24 11:18 [facility] Document 01/02/25 09:23 KW [id number] 01/02/25 09:24 KW Document 01/09/25 11:12 KW [id number] 01/09/25 11:13 KW 12/18/24 12/25/24 01/02/25 10:14 11:17 09:23 Wound Care Center Nurse 3 #6 LT HEEL -Other Dressing -Primary Dressing Covered/Secured with 5-left 2nd toe -Ulcer Cleansing Rinsed/ Irrigated with Saline -Other Dressing paint with betadine -Primary Dressing Covered/Secured with Dry Gauze, Secured with Tape 4.R heel medial -Primary Dressing Applied AMD Dressing Optilok 5x5 1/2 AMD Dressing 4x4 4x4 -Other Dressing epicord, tcc 3 AMD IS 4X8 -Primary Dressing Covered/Secured with Dry Gauze, Secured with Secured with Tape Tape -Other Covering betadine to sutured sites on legs. -AMD Dressing 4x4 2 1 -Optilok 5x5 1/2 1 -Wound Comment(s) TCC APPLIED BY CM AND DR Treatment Response Procedure Tolerated Well Pain Scale: 0-10 Numeric Is Patient Pain Free? Yes Yes Yes WC - Visit Discharge Discharge Condition Stable Stable Stable Ambulatory Status Wheelchair Wheelchair Wheelchair Transportation Private Auto [facility] Medication Reconcilliation completed & Yes No provided to patient/care provider Clinical Summary of Care Provided Yes Yes Notes: shira lift x2. Facility Type Nursing Home Care Facility 01/09/25 11:12 Wound Care Center Nurse 3 #6 LT HEEL -Other Dressing BETADINE PAINTED -Primary Dressing Covered/Secured with Dry Gauze & Roll Gauze, Secured with Tape 5-left 2nd toe -Ulcer Cleansing -Other Dressing BETADINE PAINTED -Primary Dressing Covered/Secured with Dry Gauze, Secured with Tape 4.R heel medial -Primary Dressing Applied AMD Dressing 4x4 -Other Dressing -Primary Dressing Covered/Secured with Secured with Tape -Other Covering -AMD Dressing 4x4 1 -Optilok 5x5 1/2 -Wound Comment(s) Treatment Response Pain Scale: 0-10 Numeric Is Patient Pain Free? Yes WC - Visit Discharge Discharge Condition Stable Ambulatory Status Wheelchair Transportation Medication Reconcilliation completed & No provided to patient/care provider Clinical Summary of Care Provided Yes Notes: TCC REAPPLIED ON RT Facility Type Assessment/Plan Assessment/Plan (1) Cellulitis of left toe: CODE(S): L03.032 - Cellulitis of left toe PLAN: Patient was examined and evaluated. All findings were discussed with the patient. All questions were answered to the patient's satisfaction. Excisional debridement down to including subcutaneous tissue with a number 3 mm dermal curette to the right heel full-thickness wound done without incident. Predebridement measurement was 1.0 x 1.1 x 0.1 cm. Postdebridement measurement was 1.2 x 1.3 x 0.1 cm. EpiFix 18 mm was applied to the right heel full-thickness ulceration with 100% use. The graft site was free and clear of any infection. The wound/skin graft substitute was dressed with nonadherent bandage secured in place with Steri-Strips followed by bolster dressing as well as a total contact cast at 90 degrees. Excisional debridement down to including subcutaneous tissue of the full- thickness wound to the left second digit with a number 3 mm dermal curette done without incident. Predebridement measurement was eschar. Postdebridement measurement is 0.4 x 0.6 x 0.1 cm. Excisional debridement down to and including subcutaneous tissue of the full-thickness wound to the left heel with a number 3 mm dermal curette done without incident. Predebridement measurement was 0.3 x 0.3 x 0.1 cm. Postdebridement measurement is 0.4 x 0.5 x 0.1 cm. The left foot was wiped clean and patted dry. Betadine paint was applied to theleft heel and left second digit followed by dry sterile dressing and light compression wrap. Patient will perform daily dressing change in custodial facility. Reviewed the patient's culture and sensitivity show microbial growth and the patient will be placed on doxycycline 100 mg twice daily for infection control. Continue to offload bilateral lower extremity. Continue strict blood sugar control. Follow-up at the wound care center with Dr. Cerda in 1 week. (2) Non-pressure chronic ulcer of other part of right foot with fat layer exposed: CODE(S): L97.512 - Non-pressure chronic ulcer of other part of right foot with fat layer exposed (3) Non-pressure chronic ulcer of other part of left foot with fat layer exposed: CODE(S): L97.522 - Non-pressure chronic ulcer of other part of left foot with fat layer exposed 01/09/25 1329 <Electronically signed by León Cerda DPM> Cosigner Signature (if applicable): CC: ~ Signed [facility] Work Phone: [phone] Progress note Author León Cerda [facility] Note Date/Time January 02, 2025 10:5 5am [facility] [address] [place] [address] Progress Note - Wound Care 01/02/25 1018 MR#: [id number] Acct: [id number] Name: LANI ZARAGOZA Rep #:[id number] : 1955 69 From: León Pompa PM PCP: Dr. Bernabe Reese MD Status:RE G RCR Location: History of Present Illness Date of Service: 01/02/25 Chief Complaint: Diabetic right heel ulceration History of Wound: This is a 69-year-old obese, diabetic male patient whose care has been assumed from Dr. Ramon Garcia, who is departing from our staff. The patient has a chronic ulceration on his right heel, associated with poorly controlled type 2 diabetes mellitus and diabetic polyneuropathy. The patient suffers from multiple other pre-existing medical problems, which are documented herein. The patient's most recent management has been by means of serial debridements, with an EpiFix allograft having been applied at the patient's prior visit on December 11, 2024. Offloading measures and total contact casting have also been a recent cornerstone of the patient's management. 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 Progress of Wound: Stable right heel wound no sign of infection. Subjective Subjective Patient is a 69-year-old diabetic male presenting to wound care center today forfollow-up evaluation of full-thickness wound with amniotic skin graft substituteto the right heel with application of total contact cast. Patient has been nonweightbearing with Shira lift at the facility. He also has a this erythema to the left second digit and is unsure how it happened. His blood sugar has been well-controlled. He does deny trauma. Denies constitutional symptoms. Noother pedal complaints at this time. Objective Data Objective Data Vital Signs: Vital Signs Temp Pulse Resp BP O2 Del Method 96.0 F L 98 18 157/98 H Room Air 01/02/25 08:59 01/02/25 08:59 01/02/25 08:59 01/02/25 08:59 01/02/25 08:59 Oxygen Delivery Method Room Air Weight: 146.057 kg Body Mass Index (BMI) 48.9 Physical Exam Narrative Vascular: DP and PT pulse are palpable. CFT is brisk. Skin temperature is warmto warm from proximal ankles to distal digit bilateral. Nonpitting edema with hemosiderin deposit appreciated bilateral extremity. Neurological:. Light touch is intact. Protective station is diminished. Patient does not respond to painful stimuli. Dermatological: Full-thickness wound to the right heel measuring 1.0 x 1.8 x 0.2cm. Wound base is granular with no sign of infection. Evidence of blanchable erythema to the left second digit with full-thickness wound measuring 0.7 x 0.7 x 0.2 cm. Wound base is granular and cannot rule out infection at this time. Excisional debridement down to including subcutaneous tissue with a number 3 mm dermal curette to the right heel full-thickness wound done without incident. Predebridement measurement was eschar. Postdebridement measurement was 1.0 x 1.8 x 0.2 cm. EpiFix 18 mm was applied to the right heel full-thickness ulceration with 100% use. The graft site was free and clear of any infection. The wound/skin graft substitute was dressed with nonadherent bandage secured in place with Steri-Strips followed by bolster dressing as well as a total contact cast at 90 degrees. Excisional debridement down to including subcutaneous tissue of the full- thickness wound to the left second digit with a number 3 mm dermal curette done without incident. Predebridement measurement was eschar. Postdebridement measurement is 0.7 x 0.7 x 0.2 cm. Musculoskeletal: No pain to palpation to full-thickness wound bilateral. No pain with calf pressure. Debridement Note Debridement Note Debridement Free Text: Excisional debridement down to including subcutaneous tissue with a number 3 mm dermal curette to the right heel full-thickness wound done without incident. Predebridement measurement was eschar. Postdebridement measurement was 1.0 x 1.8 x 0.2 cm. EpiFix 18 mm was applied to the right heel full-thickness ulceration with 100% use. The graft site was free and clear of any infection. The wound/skin graft substitute was dressed with nonadherent bandage secured in place with Steri-Strips followed by bolster dressing as well as a total contact cast at 90 degrees. Excisional debridement down to including subcutaneous tissue of the full- thickness wound to the left second digit with a number 3 mm dermal curette done without incident. Predebridement measurement was eschar. Postdebridement measurement is 0.7 x 0.7 x 0.2 cm. Post-Debridement Measurements and Additional Note: Post-Debridement Measurements/Treatment - Nurse 1 - General Ulcer Assessment Start: 12/18/24 09:27 Freq: Status: Active Protocol: MARGY Activity Type Activity Date Activity User E-sign Co-sign Detail Recorded Client Recorded Date Recorded By Document 12/18/24 09:27 [facility] [id number] 12/18/24 09:35 [facility] Document 12/18/24 09:40 DS [id number] 12/18/24 09:41 DS Document 12/25/24 09:42 [facility] [id number] 12/25/24 09:54 [facility] Document 01/02/25 08:59 KW [id number] 01/02/25 09:05 KW 12/18/24 12/18/24 12/25/24 09:27 09:40 09:42 - Today's Visit Information Type of service Follow-up Visit Follow-up Visit (Physician/AERIAL SURVEY TECHNICIAN (Physician/AERIAL SURVEY TECHNICIAN ) ) Arrival Mode Wheelchair Wheelchair Transfer Assistance Shira Lift Shira Lift Transfer Assist (Other) 3 Patient Identification Verified (Name & Yes Yes ) Patient Requires Transmission-Based No No Precautions Height and Weight Height 5 ft 8 in Weight 146.057 kg Weight in Pounds 322.0 lbs Body Mass Index (BMI) 48.9 48.9 BMI Classification Obese Obese Vital Signs Temperature (97.8 F-99.1 F) 97.6 F L 97 F L Temperature Source Temporal Temporal Pulse Rate (60-100) 74 65 Pulse Location Monitor Monitor Respiratory Rate (12-18) 16 16 Respiratory rate source Observation Observation Oxygen Delivery Method Room Air Room Air Blood Pressure (90/60-120/80) 135/60 H 130/85 H Blood Pressure Mean (mm Hg) 85 100 Source Monitor Monitor Position Sitting Sitting Blood Pressure Location Left Arm Right Arm History Since Last [...] Has compression in place as prescribed N/A Has offloadiing in place as prescribed Yes Yes Experienced any changes in pain level or No No management Left Footwear Diabetic Shoe Diabetic Shoe Right Footwear Total Contact Total Contact Cast Cast Pain Scale: 0-10 Numeric Is Patient Pain Free? Yes Yes Yes 01/02/25 08:59 WC - Today's Visit Information Type of service Follow-up Visit (Physician/AERIAL SURVEY TECHNICIAN ) Arrival Mode Wheelchair Transfer Assistance Shira Lift Transfer Assist (Other) Patient Identification Verified (Name & Yes ) Patient Requires Transmission-Based Precautions Height and Weight Height Weight Weight in Pounds Body Mass Index (BMI) 48.9 BMI Classification Obese Vital Signs Temperature (97.8 F-99.1 F) 96.0 F L Temperature Source Temporal Pulse Rate (60-100) 98 Pulse Location Monitor Respiratory Rate (12-18) 18 Respiratory rate source Monitor Oxygen Delivery Method Room Air Blood Pressure (90/60-120/80) 157/98 H Blood Pressure Mean (mm Hg) 117 Source Monitor Position Sitting Blood Pressure Location [...] management Left Footwear Regular Shoe Right Footwear Total Contact Cast Pain Scale: 0-10 Numeric Is Patient Pain Free? Yes WC - Nurse 1 - General Ulcer Measurement Start: 12/18/24 09:27 Freq: Status: Active Protocol: Activity Type Activity Date Activity User E-sign Co-sign Detail Recorded Client Recorded Date Recorded By Document 12/18/24 09:27 [facility] [id number] 12/18/24 09:35 BM Document 12/25/24 09:42 [facility] [id number] 12/25/24 09:54 [facility] Document 01/02/25 08:59 KW [id number] 01/02/25 09:05 KW 12/18/24 12/25/24 01/02/25 09:27 09:42 08:59 Wound Center Nurse 1 4.R heel medial -Combined with other wound No No -Current Size (cm) - Length 1.6 0.9 1 -Current Size (cm) - Width 2.5 2.3 1.7 -Current Size (cm) - Depth 0.1 0.2 0.2 -Total Square Cm 4.00 2.07 1.7 -Date of Last Picture (Recall this 12/18/24 12/25/24 01/02/25 field) -Photo Taken Yes Yes -Epithelialization Medium 34-66% -Tunneling No -Undermining/Tunneling No -Exudate Amt Medium Medium Medium -Exudate Type Serosanguineous Serosanguineous Serosanguineous -Wound Margin Flat & Intact Thickened Distinct, Outline Attached -Granulation Amt Medium (34-66%) Large (67-100%) Large (67-100%) -Granulation Quality Red Red [place],Red -Slough/Fibrin Yes -Necrosis Amt Medium (34-66%) Small (1-33%) -Necrotic Tissue Type Adherent Slough Adherent Slough -Texture (Lesvia-wound Skin Appearance) Assessed, Assessed Assessed Scarring -Moisture (Lesvia-wound Skin Appearance) Assessed,Dry/ Assessed Assessed,Dry/ Scaly Scaly -Color (Lesvia-wound Skin Appearance) Assessed Assessed Assessed -Temperature (Lesvia-wound Skin No Abnormality No Abnormality No Abnormality Appearance) (Pt Warm) (Pt Warm) (Pt Warm) -Tenderness on Palpation (Lesvia-wound No No No Skin Appearance) -Ulcer Cleansing Soap and Water Soap and Water Soap and Water -Foul Odor after Cleansing No No No -Anesthetic Used 5% Lidocaine 5% Lidocaine Cetacaine Gel Gel WC - Nurse 2 - General Ulcer CM Notes Start: 12/18/24 09:27 Freq: Status: Active Protocol: Activity Type Activity Date Activity User E-sign Co-sign Detail Recorded Client Recorded Date Recorded By Document 12/18/24 09:49 DS [id number] 12/18/24 10:00 DS Edit Result 12/18/24 09:49 DS (1) [id number] 12/18/24 10:07 DS Document 12/25/24 10:09 DS [id number] 12/25/24 10:19 DS Edit Result 12/25/24 10:09 DS (2) [id number] 12/25/24 10:49 DS Edit Result 12/25/24 10:09 DS (3) [id number] 12/25/24 10:53 DS Document 01/02/25 09:06 JF [id number] 01/02/25 09:16 JF (1) 4.R heel medial - Wound Comment(s) => sutures removed (2) 4.R heel medial - Type of Bioengineered Tissue => Epifix - Expiration Date => 06/20/29 - Product Lot Number => [id number] - Percent Used => 100 - Lot number of Saline Used => [id number] - Apply Skin Sub - 1st 25 sq cm - Feet => 1 - Epifix Application 1-4 (per sq cm) => 4 - Wound Comment(s) => pressure dressing used for 10mins (3) 4.R heel medial - Offloading => Yes - Type of Offloading => Total Contact Cast => (TCC) - Right ($) - Total Non-Weight Bearing to => Right Lower => Extremity - Assistive Device(s) => Wheelchair - Pressure Reduction => Wheelchair cushion 12/18/24 12/25/24 01/02/25 09:49 10:09 09:06 Wound Center Nurse 2 4-left 2nd toe -Time 09:15 -Correct Patient Yes -Correct Side, Site, Position Yes -Correct Procedure Yes -Procedure Performed Yes -Type of Procedure Debridement -Clinical Debridement Muscle / Fascia -Tissue Removed Muscle -Post Debridement (cm) - Length 0.7 -Post Debridement (cm) - Width 0.7 -Post Debridement (cm) - Depth 0.2 -Total Square (Post) (cm) 0.49 -Area of Debridement (cm) - Length 0.7 -Area of Debridement (cm) - Width 0.7 -Total Square (Area) (cm) 0.49 -Tunneling No -Undermining/Tunneling No -Circular Undermining No -Wound/Ulcer Outcome Not Healed -Ulcer Cleansing Rinsed/ Irrigated with Saline -Foul Odor after Cleansing No -Bioengineered Tissue No -Bleeding Controlled with Pressure -Treatment Response Procedure Tolerated Well -Offloading No -Debridement - Muscle / Fascia, 1st Yes 20sq cm 4.R heel medial -Time 09:50 10:09 09:06 -Correct Patient Yes Yes Yes -Correct Side, Site, Position Yes Yes Yes -Correct Procedure Yes Yes Yes -Procedure Performed Yes Yes Yes -Type of Procedure Debridement Debridement Debridement -Clinical Debridement Subcutaneous Subcutaneous Subcutaneous -Tissue Removed Subcutaneous Subcutaneous Subcutaneous -Post Debridement (cm) - Length 1.5 1.5 1 -Post Debridement (cm) - Width 2.7 2.1 1.8 -Post Debridement (cm) - Depth 0.2 0.2 0.2 -Total Square (Post) (cm) 4.05 3.15 1.8 -Area of Debridement (cm) - Length 1.5 1.5 1.0 -Area of Debridement (cm) - Width 2.7 2.1 1.8 -Total Square (Area) (cm) 4.05 3.15 1.80 -Tunneling No No No -Undermining/Tunneling No No No -Circular Undermining No No No -Wound/Ulcer Outcome Not Healed Not Healed Not Healed -Ulcer Cleansing Rinsed/ Rinsed/ Irrigated with Irrigated with Saline Saline -Foul Odor after Cleansing No No No -Bioengineered Tissue No No Yes -Type of Bioengineered Tissue Epicord Epifix Epifix 18mm Disc -Expiration Date 04/20/29 06/20/29 08/18/29 -Product Lot Number [id number] -Percent Used 100 100 100 -Lot number of Saline Used [id number] -Bleeding Controlled with Pressure Pressure,Silver Pressure Nitrate ($) -Treatment Response Procedure Procedure Procedure Tolerated Well Tolerated Well Tolerated Well -Offloading Yes Yes Yes -Type of Offloading Total Contact Total Contact Total Contact Cast (TCC) - Cast (TCC) - Cast (TCC) - Right ($) Right ($) Right ($) -Total Non-Weight Bearing to Right Lower Extremity -Assistive Device(s) Wheelchair -Pressure Reduction Wheelchair cushion -Debridement - Subq, 1st 20sq cm No No No -Apply Skin Sub - 1st 25 sq cm - Feet 1 1 1 -Epicord Application 1-4 (per sq cm) 6 -Epifix Application 1-4 (per sq cm) 4 -Epifix 18mm Disc Application 1-4 3 -Wound Comment(s) sutures removed pressure dressing used for 10mins Pain Scale: 0-10 Numeric Is Patient Pain Free? Yes Yes Yes - Nurse 3 - General Ulcer D/C NN Start: 12/18/24 09:27 Freq: Status: Active Protocol: Activity Type Activity Date Activity User E-sign Co-sign Detail Recorded Client Recorded Date Recorded By Document 12/18/24 10:14 [id number] 12/18/24 10:16 Document 12/25/24 11:17 [facility] [id number] 12/25/24 11:18 [facility] Document 01/02/25 09:23 KW [id number] 01/02/25 09:24 KW 12/18/24 12/25/24 01/02/25 10:14 11:17 09:23 Wound Care Center Nurse 3 4-left 2nd toe -Ulcer Cleansing Rinsed/ Irrigated with Saline -Other Dressing paint with betadine -Primary Dressing Covered/Secured with Dry Gauze, Secured with Tape 4.R heel medial -Primary Dressing Applied AMD Dressing Optilok 5x5 1/2 AMD Dressing 4x4 4x4 -Other Dressing epicord, tcc 3 AMD IS 4X8 -Primary Dressing Covered/Secured with Dry Gauze, Secured with Secured with Tape Tape -Other Covering betadine to sutured sites on legs. -AMD Dressing 4x4 2 1 -Optilok 5x5 1/2 1 -Wound Comment(s) TCC APPLIED BY RUSSEL AND Treatment Response Procedure Tolerated Well Pain Scale: 0-10 Numeric Is Patient Pain Free? Yes Yes Yes - Visit Discharge Discharge Condition Stable Stable Stable Ambulatory Status Wheelchair Wheelchair Wheelchair Transportation Private [facility] Medication Reconcilliation completed & Yes No provided to patient/care provider Clinical Summary of Care Provided Yes Yes Notes: shira lift x2. Facility Type Nursing Home Care Facility Assessment/Plan Assessment/Plan (1) Cellulitis of left toe: CODE(S): L03.032 - Cellulitis of left toe PLAN: Patient was examined and evaluated. All findings were discussed with the patient. All questions were answered to the patient's satisfaction. Excisional debridement down to including subcutaneous tissue with a number 3 mm dermal curette to the right heel full-thickness wound done without incident. Predebridement measurement was eschar. Postdebridement measurement was 1.0 x 1.8 x 0.2 cm. EpiFix 18 mm was applied to the right heel full-thickness ulceration with 100% use. The graft site was free and clear of any infection. The wound/skin graft substitute was dressed with nonadherent bandage secured in place with Steri-Strips followed by bolster dressing as well as a total contact cast at 90 degrees. Excisional debridement down to including subcutaneous tissue of the full- thickness wound to the left second digit with a number 3 mm dermal curette done without incident. Predebridement measurement was eschar. Postdebridement measurement is 0.7 x 0.7 x 0.2 cm. Culture was taken from the left foot second digit I will be sent for microbiology for culture and sensitivity. I will place the patient on oral antibiotics when results return. The patient will continue to be nonweightbearing to the bilateral lower extremity with assistance of a wheelchair and Shira lift at the facility. He will continue strict blood sugar control. No plan for surgical intervention at this time. Follow-up at the wound care center with Dr. Cerda in 1 week. (2) Non-pressure chronic ulcer of other part of right foot with fat layer exposed: CODE(S): L97.512 - Non-pressure chronic ulcer of other part of right foot with fat layer exposed (3) Non-pressure 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: CODE(S): L97.523 - Non-pressure 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 01/02/25 1055 <Electronically signed by León Cerda DPM> Cosigner Signature (if applicable): CC: ~ Signed [facility] Work Phone: [phone]) 760-694907-12-2025 History and physical note Author Canelo Cavazos [facility] Note Date/Time December 29, 2024 6:50 pm [facility] [address] [place] [address] H&P Exam - Wound Care 12/29/24 1826 MR#: [id number] Acct: [id number] Name: LANI ZARAGOZA Rep #:[id number] : 1955 69 From: Canelo Pompa PCP: Dr. Bernabe Reese MD Status:RE G RCR Location: History of Present Illness Date of Service: 12/25/24 Chief Complaint: Diabetic right heel ulceration History of Wound: This is a 69-year-old obese, diabetic male patient whose care has been assumed from Dr. Ramon Garcia, who is departing from our staff. The patient has a chronic ulceration on his right heel, associated with poorly controlled type 2 diabetes mellitus and diabetic polyneuropathy. The patient suffers from multiple other pre-existing medical problems, which are documented herein. The patient's most recent management has been by means of serial debridements, with an EpiFix allograft having been applied at the patient's prior visit on December 11, 2024. Offloading measures and total contact casting have also been a recent cornerstone of the patient's management. 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 [facility] Medical History Chronic anticoagulation Type 2 diabetes mellitus with diabetic polyneuropathy Kidney stones Chronic cellulitis Streptococcal bacteremia Hyperglycemia due to diabetes mellitus Fall Wears glasses Depression Anxiety Alcohol use [...] 5 mg PO QHS BP 10/01/2009/19 History cajnjngr-xf-ynews 300 mcg-K 60 1 tablet PO DAILY suppl emetkaylee 10/01/20 05/21/23 History mcg-lycop 600 mcg-lutein 300 [...] x #1,200 ea 05/23/23 Unk nown Rx blood sugar diagnostic (OneTouch #10 ea 07/11/23 Unkno wn History Ultra Test strips) metoprolol tartrate 50 mg tablet 50 mg PO BID blood pr essure 10/09/24 10/11/24 History acetaminophen 325 mg tablet 650 mg (2 x 325 mg) PO Q6H PRN PRN 10/16/24 Unknown Rx Pain 1-10 Or Fever >100.7 #0 tabs meropenem 1 gram intravenous 1 g IV Q8 37 days #111 ea 10/16/24 Unknown Rx solution vancomycin 1.5 gram intravenous 1.5 g IV Q12H 37 days 10/16/24 Unknown Rx solution Allergy/AdvReac Type Severity Reaction Status Date / [...] use type: does not use caffeine: Yes Vital Signs Vital Signs Vital Signs: Weight Weight: 322 lb Body Mass Index (BMI) 48.9 Physical Exam Const alert, oriented x3, no apparent distress and well nourished Constitutional Narrative: The patient is morbidly obese, with a BMI of 49.0. General Appearance: cooperative, comfortable and well developed Orientation / Consciousness: awake, oriented to person, oriented to place and oriented to time Exam Limitations: no limitations HEENT normocephalic and head/scalp atraumatic Head and Scalp: normal to inspection, normocephalic and atraumatic Face and Sinus: normal facial exam Nose: external nose normal External Ear: external ears normal Eyes EOMs intact bilaterally General Eye: normal appearance of both eyes Neck full ROM Resp normal respiratory effort, normal air movement, no retractions and no use of accessory muscles Effort and Inspection: able to speak in complete sentences Extremity no calf tenderness General Extremity: Negative for clubbing or cyanosis Skin Wound Narrative: An ulceration is noted on the patient's right heel. The ulceration is full- thickness in nature, extending through all layers of the dermis and into the subcutaneous tissues. The ulceration does not appear to involve muscle, fascia,or bone. Ulcer margins are reasonably well beveled. There is a moderate amountof callus surrounding the ulceration. There is no sign of infection or cellulitis. Dimensions are documented elsewhere. The base of the ulceration isgenerally pink and healthy in appearance, with a small amount of bioburden and residual cellular tissue product. The ulceration appears to be smaller than theweek prior. Lipodermatosclerosis and hyperpigmentation are noted in the patient's right gaiter area. Neuro oriented x3, CN's II-XII intact bilaterally, moves all extremities and no focal motor deficits Sensorium / Orientation: awake, alert, oriented to person, oriented to place andoriented to time Speech: speech normal Psych Appearance: grossly normal and appropriate Attitude: calm Activity / Motor Behavior: appropriate eye contact Speech: normal speech Mood & Affect: euthymic mood Thought Process: normal thought process Thought Content: normal thought content Attention / Concentration: attention grossly intact Debridement Note Debridement Note Wound debrided: Diabetic right heel ulceration Laterality: Right Wound Grade/Stage: Tucker grade 1 Type of Debridement: Excisional debridement Anesthesia Used: 5% Lidocaine Gel Depth: Down to and including healthy tissue and in the subcutaneous layer Percentage of wound debrided: 100 Instrument Used: 5mm curette Tissue Removed: Bioburden; peripheral callus; residual cellular tissue product Severity: Fat Layer Exposed Amount of bleeding with debridement: Mild Bleeding Controlled with: Compression and gauze and Silver Nitrate Patient tolerated procedure: Patient tolerated procedure well Debridement Free Text: Following a routine excisional debridement, which was well-tolerated, an allograft was applied topically to the ulceration. A 2 cm x 2 cm EpiFix allograft was selected for application. The allograft was removed from its sterile packaging, and it was applied topically to the ulcer site. 100% of the allograft was utilized. Once in place, Adaptic Touch was placed, and was secured using Steri-Strips. Collagen hydrogel was then placed over the site, and a gauze dressing was applied. This represents the 5th such application of an allograft at this site. A total contact cast (TCC) was then applied. Post-Debridement Measurements and Additional Note: Post-Debridement Measurements/Treatment - Nurse 1 - General Ulcer Assessment Start: 12/18/24 09:27 Freq: Status: Active Protocol: BUDDY.[email or web address] Activity Type Activity Date Activity User E-sign Co-sign Detail Recorded Client Recorded Date Recorded By Document 12/18/24 09:27 [facility] [id number] 12/18/24 09:35 [facility] Document 12/18/24 09:40 DS [id number] 12/18/24 09:41 DS Document 12/25/24 09:42 [facility] [id number] 12/25/24 09:54 [facility] 12/18/24 12/18/24 12/25/24 09:27 09:40 09:42 - Today's Visit Information Type of service Follow-up Visit Follow-up Visit (Physician/AERIAL SURVEY TECHNICIAN (Physician/AERIAL SURVEY TECHNICIAN ) ) Arrival Mode Wheelchair Wheelchair Transfer Assistance Shira Lift Shira Lift Transfer Assist (Other) 3 Patient Identification Verified (Name & Yes Yes ) Patient Requires Transmission-Based No No Precautions Height and Weight Height 5 ft 8 in Weight 322 lb Weight in Pounds 322.0 lbs Body Mass Index (BMI) 48.9 48.9 BMI Classification Obese Obese Vital Signs Temperature (97.8 F-99.1 F) 97.6 F L 97 F L Temperature Source Temporal Temporal Pulse Rate (60-100) 74 65 Pulse Location Monitor Monitor Respiratory Rate (12-18) 16 16 Respiratory rate source Observation Observation Oxygen Delivery Method Room Air Room Air Blood Pressure (90/60-120/80) 135/60 H 130/85 H Blood Pressure Mean 85 100 Source Monitor Monitor Position Sitting Sitting Blood Pressure Location Left Arm Right Arm History Since Last [...] Has compression in place as prescribed N/A Has offloadiing in place as prescribed Yes Yes Experienced any changes in pain level or No No management Left Footwear Diabetic Shoe Diabetic Shoe Right Footwear Total Contact Total Contact Cast Cast Pain Scale: 0-10 Numeric Is Patient Pain Free? Yes Yes Yes - Nurse 1 - General Ulcer Measurement Start: 12/18/24 09:27 Freq: Status: Active Protocol: Activity Type Activity Date Activity User E-sign Co-sign Detail Recorded Client Recorded Date Recorded By Document 12/18/24 09:27 [facility] [id number] 12/18/24 09:35 [facility] Document 12/25/24 09:42 [facility] [id number] 12/25/24 09:54 [facility] 12/18/24 12/25/24 09:27 09:42 Wound Center Nurse 1 4.R heel medial -Combined with other wound No No -Current Size (cm) - Length 1.6 0.9 -Current Size (cm) - Width 2.5 2.3 -Current Size (cm) - Depth 0.1 0.2 -Total Square Cm 4.00 2.07 -Date of Last Picture (Recall this 12/18/24 12/25/24 field) -Photo Taken Yes Yes -Epithelialization Medium 34-66% -Tunneling No -Undermining/Tunneling No -Exudate Amt Medium Medium -Exudate Type Serosanguineous Serosanguineous -Wound Margin Flat & Intact Thickened -Granulation Amt Medium (34-66%) Large (67-100%) -Granulation Quality Red Red -Slough/Fibrin Yes -Necrosis Amt Medium (34-66%) Small (1-33%) -Necrotic Tissue Type Adherent Slough Adherent Slough -Texture (Lesvia-wound Skin Appearance) Assessed, Assessed Scarring -Moisture (Lesvia-wound Skin Appearance) Assessed,Dry/ Assessed Scaly -Color (Lesvia-wound Skin Appearance) Assessed Assessed -Temperature (Lesvia-wound Skin No Abnormality No Abnormality Appearance) (Pt Warm) (Pt Warm) -Tenderness on Palpation (Lesvia-wound No No Skin Appearance) -Ulcer Cleansing Soap and Water Soap and Water -Foul Odor after Cleansing No No -Anesthetic Used 5% Lidocaine 5% Lidocaine Gel Gel WC - Nurse 2 - General Ulcer CM Notes Start: 12/18/24 09:27 Freq: Status: Active Protocol: Activity Type Activity Date Activity User E-sign Co-sign Detail Recorded Client Recorded Date Recorded By Document 12/18/24 09:49 DS [id number] 12/18/24 10:00 DS Edit Result 12/18/24 09:49 DS (1) [id number] 12/18/24 10:07 DS Document 12/25/24 10:09 DS [id number] 12/25/24 10:19 DS Edit Result 12/25/24 10:09 DS (2) [id number] 12/25/24 10:49 DS Edit Result 12/25/24 10:09 DS (3) [id number] 12/25/24 10:53 DS (1) 4.R heel medial - Wound Comment(s) => sutures removed (2) 4.R heel medial - Type of Bioengineered Tissue => Epifix - Expiration Date => 06/20/29 - Product Lot Number => [id number] - Percent Used => 100 - Lot number of Saline Used => [id number] - Apply Skin Sub - 1st 25 sq cm - Feet => 1 - Epifix Application 1-4 (per sq cm) => 4 - Wound Comment(s) => pressure dressing used for 10mins (3) 4.R heel medial - Offloading => Yes - Type of Offloading => Total Contact Cast => (TCC) - Right ($) - Total Non-Weight Bearing to => Right Lower => Extremity - Assistive Device(s) => Wheelchair - Pressure Reduction => Wheelchair cushion 12/18/24 12/25/24 09:49 10:09 Wound Center Nurse 2 4.R heel medial -Time 09:50 10:09 -Correct Patient Yes Yes -Correct Side, Site, Position Yes Yes -Correct Procedure Yes Yes -Procedure Performed Yes Yes -Type of Procedure Debridement Debridement -Clinical Debridement Subcutaneous Subcutaneous -Tissue Removed Subcutaneous Subcutaneous -Post Debridement (cm) - Length 1.5 1.5 -Post Debridement (cm) - Width 2.7 2.1 -Post Debridement (cm) - Depth 0.2 0.2 -Total Square (Post) (cm) 4.05 3.15 -Area of Debridement (cm) - Length 1.5 1.5 -Area of Debridement (cm) - Width 2.7 2.1 -Total Square (Area) (cm) 4.05 3.15 -Tunneling No No -Undermining/Tunneling No No -Circular Undermining No No -Wound/Ulcer Outcome Not Healed Not Healed -Ulcer Cleansing Rinsed/ Irrigated with Saline -Foul Odor after Cleansing No No -Bioengineered Tissue No No -Type of Bioengineered Tissue Epicord Epifix -Expiration Date 04/20/29 06/20/29 -Product Lot Number [id number] -Percent Used 100 100 -Lot number of Saline Used [id number] -Bleeding Controlled with Pressure Pressure,Silver Nitrate ($) -Treatment Response Procedure Procedure Tolerated Well Tolerated Well -Offloading Yes Yes -Type of Offloading Total Contact Total Contact Cast (TCC) - Cast (TCC) - Right ($) Right ($) -Total Non-Weight Bearing to Right Lower Extremity -Assistive Device(s) Wheelchair -Pressure Reduction Wheelchair cushion -Debridement - Subq, 1st 20sq cm No No -Apply Skin Sub - 1st 25 sq cm - Feet 1 1 -Epicord Application 1-4 (per sq cm) 6 -Epifix Application 1-4 (per sq cm) 4 -Wound Comment(s) sutures removed pressure dressing used for 10mins Pain Scale: 0-10 Numeric Is Patient Pain Free? Yes Yes WC - Nurse 3 - General Ulcer D/C NN Start: 12/18/24 09:27 Freq: Status: Active Protocol: Activity Type Activity Date Activity User E-sign Co-sign Detail Recorded Client Recorded Date Recorded By Document 12/18/24 10:14 [id number] 12/18/24 10:16 Document 12/25/24 11:17 [facility] [id number] 12/25/24 11:18 [facility] 12/18/24 12/25/24 10:14 11:17 Wound Care Center Nurse 3 4.R heel medial -Primary Dressing Applied AMD Dressing Optilok 5x5 1/2 4x4 -Other Dressing epicord, tcc 3 -Primary Dressing Covered/Secured with Dry Gauze, Secured with Tape -Other Covering betadine to sutured sites on legs. -AMD Dressing 4x4 2 -Optilok 5x5 1/2 1 Treatment Response Procedure Tolerated Well Pain Scale: 0-10 Numeric Is Patient Pain Free? Yes Yes WC - Visit Discharge Discharge Condition Stable Stable Ambulatory Status Wheelchair Wheelchair Transportation Private Auto ecf Medication Reconcilliation completed & Yes provided to patient/care provider Clinical Summary of Care Provided Yes Notes: shira lift x2. Facility Type Carpenter/Labor Care Facility Charges/Coding Procedures Integumentary 150xxx-152xx: [id number] Skin sub graft face/nk/hf/g Assessment/Plan Assessment/Plan (1) Non-pressure chronic ulcer of other part of right foot with fat layer exposed: CODE(S): L97.512 - Non-pressure chronic ulcer of other part of right foot with fat layer exposed (2) Diabetic ulcer of right heel: CODE(S): E11.621 - Type 2 diabetes mellitus with foot ulcer; L97.419 - Non- pressure chronic ulcer of right heel and midfoot with unspecified severity QUALIFIERS: Diabetes mellitus type: type 2 Non-pressure ulcer stage: with fat layer exposed Qualified Code(s): E11.621 - Type 2 diabetes mellitus with foot ulcer; L97.412 - Non-pressure chronic ulcer of right heel andmidfoot with fat layer exposed (3) Insulin dependent diabetes mellitus: (4) Type 2 diabetes mellitus with diabetic polyneuropathy: CODE(S): E11.42 - Type 2 diabetes mellitus with diabetic polyneuropathy QUALIFIERS: Diabetes mellitus correction insulin use: with terminal operator use Qualified Code(s): E11.42 - Type 2 diabetes mellitus with diabetic polyneuropathy; Z79.4 - ferry 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 of insulin (5) Pickwickian syndrome: CODE(S): E66.2 - Morbid (severe) obesity with alveolar hypoventilation (6) Hyperlipidemia: CODE(S): E78.5 - Hyperlipidemia, unspecified (7) Essential (primary) hypertension: CODE(S): I10 - Essential (primary) hypertension (8) Bilateral leg edema: CODE(S): R60.0 - Localized edema (9) Type 2 diabetes mellitus: CODE(S): E11.9 - Type 2 diabetes mellitus without complications QUALIFIERS: Diabetes mellitus terminal operator insulin use: with correction use Diabetes mellitus complication status: with neurologic complications Diabetes mellitus complication detail: with polyneuropathy Qualified Code(s): E11.42 - Type 2 diabetes mellitus with diabetic polyneuropathy; Z79.4 - ferry 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90 - Unspecified osteoarthritis, unspecified site (17) Former smoker: CODE(S): Z87.891 - Personal history of nicotine dependence (18) History of edema: CODE(S): Z87.898 - Personal history of other specified conditions (19) HTN (hypertension): CODE(S): I10 - Essential (primary) hypertension (20) BiPAP (biphasic positive airway pressure) dependence: CODE(S): Z99.89 - Dependence on other enabling machines and devices (21) Obstructive sleep apnea: CODE(S): G47.33 - Obstructive sleep apnea (adult) (pediatric) (22) History of amputation of toe: CODE(S): Z89.429 - Acquired absence of other toe(s), unspecified side PLAN: Plan This is a 69-year-old obese diabetic male with a Tucker grade I diabetic right heel ulceration. An EpiFix allograft was placed topically today, as well as a total contact cast. The allograft application represents the 5th such application of a cellular tissue product. The patient has been advised to optimize his nutritional intake as well as his diabetic control. Leg elevation has been advised as much as possible to minimize swelling and edema in the patient's lower extremities. Prolonged, idle sitting has been discouraged. Thepatient is to follow-up in 1 week with the Podiatry service for further management relative to his heel ulceration, as well as trimming of his toenails. Total time: 25 minutes 12/29/24 1850 <Electronically signed by Canelo Cavazos MD> Cosigner Signature (if applicable): CC: ~ Signed [facility] Work Phone: [phone] 371-100407-04-2025 History and physical note Author Canelo Cavazos [facility] Note Date/Time December 21, 2024 4:18p m [facility] [address] [place] [id number] H&P Exam - Wound Care 12/21/24 1513 MR#: [id number] Acct: [id number] Name: LANI ZARAGOZA Rep #:[id number] : 1955 69 From: Canelo Pompa PCP: Dr. Bernabe Reese MD Status:RE G RCR Location: ADDENDUM by Dr. Canelo Cavazos MD on 12/21/24 at 1618 Addendum Total time spent with patient: 48 minutes 12/21/24 1618<Electronically signed by Canelo Cavazos MD> Cosigner Signature (if applicable): cc: ~* Signed History of Present Illness Date of Service: 12/18/24 Chief Complaint: Diabetic right heel ulceration History of Wound: This is a 69-year-old obese, diabetic male patient whose care is to be assumed from Dr. Ramon Garcia, who is departing from our staff. The patient has a chronic ulceration on his right heel, associated with poorly controlled type 2 diabetes mellitus and diabetic polyneuropathy. The patient suffers from multiple other pre-existing medical problems, which are documented herein. The patient's most recent management has been by means of serial debridements, with an EpiFix allograft having been applied at the patient's prior visit on December 11, 2024. Offloading measures and total contact casting hasalso been a recent cornerstone of the patient's management. 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 [facility] Medical History Chronic anticoagulation Type 2 diabetes mellitus with diabetic polyneuropathy Kidney stones Chronic cellulitis Streptococcal bacteremia Hyperglycemia due to diabetes mellitus Fall Wears glasses Depression Anxiety Alcohol use [...] 5 mg PO QHS BP 10/01/2009/19 History emzvojyo-rb-qwlda 300 mcg-K 60 1 tablet PO DAILY [...] x #1,200 ea 05/23/23 Unk nown Rx blood sugar diagnostic (OneTouch #10 ea 07/11/23 Unkno wn History Ultra Test strips) metoprolol tartrate 50 mg tablet 50 mg PO BID blood pr essure 10/09/24 10/11/24 History acetaminophen 325 mg tablet 650 mg (2 x 325 mg) PO Q6H PRN PRN 10/16/24 Unknown Rx Pain 1-10 Or Fever >100.7 #0 tabs meropenem 1 gram intravenous 1 g IV Q8 37 days #111 ea 10/16/24 Unknown Rx solution vancomycin 1.5 gram intravenous 1.5 g IV Q12H 37 days 10/16/24 Unknown Rx solution Allergy/AdvReac Type Severity Reaction Status Date / [...] use type: does not use caffeine: Yes Vital Signs Vital Signs Vital Signs: Weight Weight: 322 lb Body Mass Index (BMI) 48.9 Physical Exam Const alert, oriented x3, no apparent distress and well nourished Constitutional Narrative: The patient is morbidly obese, with a BMI of 49.0. General Appearance: cooperative, comfortable and well developed Orientation / Consciousness: awake, oriented to person, oriented to place and oriented to time Exam Limitations: no limitations HEENT normocephalic and head/scalp atraumatic Head and Scalp: normal to inspection, normocephalic and atraumatic Face and Sinus: normal facial exam Nose: external nose normal External Ear: external ears normal Eyes EOMs intact bilaterally General Eye: normal appearance of both eyes Neck full ROM Resp normal respiratory effort, normal air movement, no retractions and no use of accessory muscles Effort and Inspection: able to speak in complete sentences Extremity no calf tenderness General Extremity: Negative for clubbing or cyanosis Skin Wound Narrative: An ulceration is noted on the patient's right heel. The ulceration is full- thickness in nature, extending through all layers of the dermis and into the subcutaneous tissues. The ulceration does not appear to involve muscle, fascia,or bone. Ulcer margins are reasonably well beveled. There is a small amount ofcallus surrounding the ulceration. There is no sign of infection or cellulitis. Dimensions are documented elsewhere. The base of the ulceration is generally pink and healthy in appearance, with a small amount of bioburden. The ulceration appears to be smaller than 1 week prior. Neuro oriented x3, CN's II-XII intact bilaterally, moves all extremities and no focal motor deficits Sensorium / Orientation: awake, alert, oriented to person, oriented to place andoriented to time Speech: speech normal Psych Appearance: grossly normal and appropriate Attitude: calm Activity / Motor Behavior: appropriate eye contact Speech: normal speech Mood & Affect: euthymic mood Thought Process: normal thought process Thought Content: normal thought content Attention / Concentration: attention grossly intact Debridement Note Debridement Note Wound debrided: Diabetic right heel ulceration Laterality: Right Wound Grade/Stage: Tucker grade 1 Type of Debridement: Excisional debridement Anesthesia Used: 5% Lidocaine Gel Depth: Down to and including healthy tissue and in the subcutaneous layer Percentage of wound debrided: 100 Instrument Used: 5mm curette Tissue Removed: Bioburden and small amount of residual cellular tissue product Severity: Fat Layer Exposed Amount of bleeding with debridement: Mild Bleeding Controlled with: Compression and gauze Patient tolerated procedure: Patient tolerated procedure well Debridement Free Text: Following a routine excisional debridement, which was well-tolerated, an allograft was applied topically to the ulceration. A 2 cm x 3 cm EpiCord allograft was selected for application. The allograft was removed from its sterile packaging, and it was applied topically to the ulcer site. 100% of the allograft was utilized. Once in place, Adaptic Touch was placed, and was secured using Steri-Strips. Collagen hydrogel was then placed over the site, and a gauze dressing was applied. This represents the 4th such application of an allograft at this site. A total contact cast (TCC) was then applied. It should be also noted that the sutures which remained in the patient's calf from the prior placement of an external fixator were removed. Post-Debridement Measurements and Additional Note: Post-Debridement Measurements/Treatment WC - Nurse 1 - General Ulcer Assessment Start: 12/18/24 09:27 Freq: Status: Active Protocol: WC.LOWEXT Activity Type Activity Date Activity User E-sign Co-sign Detail Recorded Client Recorded Date Recorded By Document 12/18/24 09:27 [facility] [id number] 12/18/24 09:35 [facility] Document 12/18/24 09:40 DS [id number] 12/18/24 09:41 DS 12/18/24 12/18/24 09:27 09:40 - Today's Visit Information Type of service Follow-up Visit (Physician/AERIAL SURVEY TECHNICIAN ) Arrival Mode Wheelchair Transfer Assistance Shira Lift Transfer Assist (Other) 3 Patient Identification Verified (Name & Yes ) Patient Requires Transmission-Based No Precautions Height and Weight Height 5 ft 8 in Weight 322 lb Weight in Pounds 322.0 lbs Body Mass Index (BMI) 48.9 BMI Classification Obese Vital Signs Temperature (97.8 F-99.1 F) 97.6 F L Temperature Source Temporal Pulse Rate (60-100) 74 Pulse Location Monitor Respiratory Rate (12-18) 16 Respiratory rate source Observation Oxygen Delivery Method Room Air Blood Pressure (90/60-120/80) 135/60 H Blood Pressure Mean 85 Source Monitor Position Sitting Blood Pressure Location [...] dressing in place as prescribed Yes Has offloadiing in place as prescribed Yes Experienced any changes in pain level or No management Left Footwear Diabetic Shoe Right Footwear Total Contact Cast Pain Scale: 0-10 Numeric Is Patient Pain Free? Yes Yes - Nurse 1 - General Ulcer Measurement Start: 12/18/24 09:27 Freq: Status: Active Protocol: Activity Type Activity Date Activity User E-sign Co-sign Detail Recorded Client Recorded Date Recorded By Document 12/18/24 09:27 [facility] [id number] 12/18/24 09:35 [facility] 12/18/24 09:27 Wound Center Nurse 1 4.R heel medial -Combined with other wound No -Current Size (cm) - Length 1.6 -Current Size (cm) - Width 2.5 -Current Size (cm) - Depth 0.1 -Total Square Cm 4.00 -Date of Last Picture (Recall this 12/18/24 field) -Photo Taken Yes -Epithelialization Medium 34-66% -Tunneling No -Undermining/Tunneling No -Exudate Amt Medium -Exudate Type Serosanguineous -Wound Margin Flat & Intact -Granulation Amt Medium (34-66%) -Granulation Quality Red -Slough/Fibrin Yes -Necrosis Amt Medium (34-66%) -Necrotic Tissue Type Adherent Slough -Texture (Lesvia-wound Skin Appearance) Assessed, Scarring -Moisture (Lesvia-wound Skin Appearance) Assessed,Dry/ Scaly -Color (Lesvia-wound Skin Appearance) Assessed -Temperature (Lesvia-wound Skin No Abnormality Appearance) (Pt Warm) -Tenderness on Palpation (Lesvia-wound No Skin Appearance) -Ulcer Cleansing Soap and Water -Foul Odor after Cleansing No -Anesthetic Used 5% Lidocaine Gel WC - Nurse 2 - General Ulcer CM Notes Start: 12/18/24 09:27 Freq: Status: Active Protocol: Activity Type Activity Date Activity User E-sign Co-sign Detail Recorded Client Recorded Date Recorded By Document 12/18/24 09:49 DS [id number] 12/18/24 10:00 DS Edit Result 12/18/24 09:49 DS (1) [id number] 12/18/24 10:07 DS (1) 4.R heel medial - Wound Comment(s) => sutures removed 12/18/24 09:49 Wound Center Nurse 2 -Time 09:50 -Correct Patient Yes -Correct Side, Site, Position Yes -Correct Procedure Yes -Procedure Performed Yes -Type of Procedure Debridement -Clinical Debridement Subcutaneous -Tissue Removed Subcutaneous -Post Debridement (cm) - Length 1.5 -Post Debridement (cm) - Width 2.7 -Post Debridement (cm) - Depth 0.2 -Total Square (Post) (cm) 4.05 -Area of Debridement (cm) - Length 1.5 -Area of Debridement (cm) - Width 2.7 -Total Square (Area) (cm) 4.05 -Tunneling No -Undermining/Tunneling No -Circular Undermining No -Wound/Ulcer Outcome Not Healed -Ulcer Cleansing Rinsed/ Irrigated with Saline -Foul Odor after Cleansing No -Bioengineered Tissue No -Type of Bioengineered Tissue Epicord -Expiration Date 04/20/29 -Product Lot Number [id number] -Percent Used 100 -Lot number of Saline Used [id number] -Bleeding Controlled with Pressure -Treatment Response Procedure Tolerated Well -Offloading Yes -Type of Offloading Total Contact Cast (TCC) - Right ($) -Debridement - Subq, 1st 20sq cm No -Apply Skin Sub - 1st 25 sq cm - Feet 1 -Epicord Application 1-4 (per sq cm) 6 -Wound Comment(s) sutures removed Pain Scale: 0-10 Numeric Is Patient Pain Free? Yes - Nurse 3 - General Ulcer D/C NN Start: 12/18/24 09:27 Freq: Status: Active Protocol: Activity Type Activity Date Activity User E-sign Co-sign Detail Recorded Client Recorded Date Recorded By Document 12/18/24 10:14 ÁNGEL [id number] 12/18/24 10:16 ÁNGEL 12/18/24 10:14 Wound Care Center Nurse 3 4.R heel medial -Primary Dressing Applied AMD Dressing 4x4 -Other Covering betadine to sutured sites on legs. -AMD Dressing 4x4 2 Pain Scale: 0-10 Numeric Is Patient Pain Free? Yes WC - Visit Discharge Discharge Condition Stable Ambulatory Status Wheelchair Transportation Private Auto Medication Reconcilliation completed & Yes provided to patient/care provider Clinical Summary of Care Provided Yes Notes: shira lift x2. Lab / Micro Data Attestation: I reviewed the patient's lab results. Lab results narrative: Laboratory Tests 12/18/24 06:00 WBC 7.5 Hgb 10.9 L Hct 33.7 L Plt Count 189 Sodium 141 Potassium 3.9 Chloride 101 Carbon Dioxide 29.0 BUN 28 H Creatinine 0.91 Glucose 132 H Calcium 9.3 C-React Prot Ext Range 13.50 H Charges/Coding Multi Select Codes Visit Charges Office Visit/Consults: 03432 OV L4 New 45 min Integumentary Integumentary CPT Codes: 64850 Skin sub graft face/nk/hf/g Assessment/Plan Assessment/Plan (1) Non-pressure chronic ulcer of other part of right foot with fat layer exposed: CODE(S): L97.512 - Non-pressure chronic ulcer of other part of right foot with fat layer exposed (2) Diabetic ulcer of right heel: CODE(S): E11.621 - Type 2 diabetes mellitus with foot ulcer; L97.419 - Non- pressure chronic ulcer of right heel and midfoot with unspecified severity QUALIFIERS: Diabetes mellitus type: type 2 Non-pressure ulcer stage: with fat layer exposed Qualified Code(s): E11.621 - Type 2 diabetes mellitus with foot ulcer; L97.412 - Non-pressure chronic ulcer of right heel andmidfoot with fat layer exposed (3) Insulin dependent diabetes mellitus: (4) Type 2 diabetes mellitus with diabetic polyneuropathy: CODE(S): E11.42 - Type 2 diabetes mellitus with diabetic polyneuropathy QUALIFIERS: Diabetes mellitus correction insulin use: unspecified terminal operator insulin use status Qualified Code(s): E11.42 - Type 2 diabetes mellitus with diabetic polyneuropathy (5) Pickwickian syndrome: CODE(S): E66.2 - Morbid (severe) obesity with alveolar hypoventilation (6) Hyperlipidemia: CODE(S): E78.5 - Hyperlipidemia, unspecified (7) Essential (primary) hypertension: CODE(S): I10 - Essential (primary) hypertension (8) Bilateral leg edema: CODE(S): R60.0 - Localized edema (9) Type 2 diabetes mellitus: CODE(S): E11.9 - Type 2 diabetes mellitus without complications QUALIFIERS: Diabetes mellitus terminal operator insulin use: with terminal operator use Diabetes mellitus complication status: with neurologic complications Diabetes mellitus complication detail: with polyneuropathy Qualified Code(s): E11.42 - Type 2 diabetes mellitus with diabetic polyneuropathy; Z79.4 - ferry 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90 - Unspecified osteoarthritis, unspecified site (17) Former smoker: CODE(S): Z87.891 - Personal history of nicotine dependence (18) History of edema: CODE(S): Z87.898 - Personal history of other specified conditions (19) HTN (hypertension): CODE(S): I10 - Essential (primary) hypertension (20) BiPAP (biphasic positive airway pressure) dependence: CODE(S): Z99.89 - Dependence on other enabling machines and devices (21) Obstructive sleep apnea: CODE(S): G47.33 - Obstructive sleep apnea (adult) (pediatric) (22) History of amputation of toe: CODE(S): Z89.429 - Acquired absence of other toe(s), unspecified side PLAN: Plan This is a 69-year-old obese diabetic male with a diabetic right heel ulceration. An EpiCord allograft was placed topically today, as well as a total contact cast. Offloading measures are to be continued. The patient has been advised tooptimize his nutritional intake as well as his diabetic control. Leg elevation has been advised is much as possible to minimize swelling and edema in the patient's lower extremities. Prolonged, idle sitting has been discouraged. Thepatient is to return in 1 week for reevaluation. 12/21/24 1543 <Electronically signed by Canelo Cavazos MD> Cosigner Signature (if applicable): CC: ~ Signed [facility] Work Phone: [phone]) 972-299406-24-2025 Progress note Author Ramon Garcia [facility] Note Date/Time December 11, 2024 10:4 8am [facility] [address] [place] [id number] Progress Note - Wound Care 12/11/24 1046 MR#: [id number] Acct: [id number] Name: LANI ZARAGOAZ Rep #:[id number] : 1955 69 From: Ramon Garcia DPM PCP: Dr. Bernabe Reese MD Status:[place] Location: History of Present Illness Date of Service: 12/11/24 Chief Complaint: Right heel wound History of Wound: Patient has chronic wound to right heel in setting of diabeticneuropathy, poorly controlled diabetes, peripheral neuropathy, peripheral arterial disease, iron deficiency, chronic chronic anticoagulation. Patient denies constitutional symptoms. Patient ambulates in surgical shoe with heel offloading. 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 Patient has no other complaints. [...] Date Recorded By Document 11/20/24 10:17 KW [id number] 11/20/24 10:35 KW Document 11/27/24 09:35 KW [id number] 11/27/24 09:41 KW Document 12/04/24 10:12 KW [id number] 12/04/24 10:32 KW Document 12/11/24 10:06 KW [id number] 12/11/24 10:28 KW 11/20/24 11/27/24 12/04/24 10:17 09:35 10:12 - Today's Visit Information Type of service Follow-up Visit Follow-up Visit Follow-up Visit (Physician/AERIAL SURVEY TECHNICIAN (Physician/AERIAL SURVEY TECHNICIAN (Physician/AERIAL SURVEY TECHNICIAN ) ) ) Arrival Mode Wheelchair Wheelchair [...] Pain Free? Yes Yes Yes 12/11/24 10:06 WC - Today's Visit Information Type of service Follow-up Visit (Physician/AERIAL SURVEY TECHNICIAN ) Arrival Mode Wheelchair Transfer Assistance Sihra Lift Patient Identification Verified (Name & Yes [...] Date Recorded By Document 11/20/24 10:17 KW [id number] 11/20/24 10:35 KW Document 11/27/24 09:35 KW [id number] 11/27/24 09:41 KW Document 12/04/24 10:12 KW [id number] 12/04/24 10:32 KW Document 12/11/24 10:06 KW [id number] 12/11/24 10:28 KW 11/20/24 11/27/24 12/04/24 10:17 [...] Gel Gel Gel Lower Limb Edema Present 12/11/24 10:06 Wound Center Nurse 1 4.R [...] Attached -Granulation Amt Large (67-100%) -Granulation Quality Pale,[place] -Slough/Fibrin -Necrosis Amt Small (1-33%) -Necrotic Tissue Type Adherent Slough -Structure Exposed -Texture (Lesvia-wound Skin Appearance) Assessed -Moisture (Lesvia-wound Skin Appearance) Assessed -Color (Lesvia-wound Skin Appearance) Assessed -Temperature (Lesvia-wound Skin No Abnormality Appearance) (Pt Warm) -Tenderness on Palpation (Lesvia-wound No Skin Appearance) -Ulcer Cleansing Soap and Water -Foul Odor after Cleansing No -Anesthetic Used 5% Lidocaine Gel Lower Limb Edema Present - Nurse 2 - General Ulcer CM Notes Start: 11/20/24 10:16 Freq: Status: Active Protocol: Activity Type Activity Date Activity User E-sign Co-sign Detail Recorded Client Recorded Date Recorded By Document 11/20/24 10:47 [id number] 11/20/24 10:49 Document 11/27/24 10:10 [facility] [id number] 11/27/24 10:20 [facility] Document 12/04/24 10:36 [id number] 12/04/24 10:47 11/20/24 11/27/24 12/04/24 10:47 10:10 [...] -Expiration Date 02/18/29 03/20/29 -Product Lot Number [id number] -Percent Used 100 100 -Lot number of Saline Used [id number] -Bleeding Controlled with Pressure Pressure Pressure -Treatment [...] Recorded Date Recorded By Document 11/20/24 11:12 [facility] [id number] 11/20/24 11:12 BM Document 11/27/24 10:20 BMF [id number] 11/27/24 10:21 BMF Document 12/04/24 10:57 DS [id number] 12/04/24 11:53 DS 06/03/25 06/10/25 06/17/25 11:12 10:20 10:57 Wound Care Center Nurse [...] Ambulatory Status Wheelchair Wheelchair Wheelchair Transportation ecf [facility] Facility Type Carpenter/Labor Care Nursing Home Care Facility Facility Assessment/Plan Assessment/Plan (1) Non-pressure [...] wound care and signs of infection. 12/11/24 1047 <Electronically signed by Ramon Garcia DPM> Cosigner Signature (if applicable): CC: ~ Signed [facility] Work Phone: 1([phone]) 404-803806-24-2025 Evaluation note* Diagnosis Onset Date Resolution Status Admit Date Acute osteomyelitis of right calcaneus acute December 11, 2024 10:00am Encounter for other orthoped ic aftercare acute December 11, 2024 10:00am Non-pressure chronic ulcer o f other part of right foot with fat layer exposed chronic December 11 10:00am 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 December 11 10:00am Arthritis acute January 16 10:30am Atrial fibrillation acute January 16, 2025 10:30am BiPAP (biphasic positive air way pressure) dependence acute January 16, 2025 10:30am Cellulitis of left toe acute Ju 2024 10:30am Chronic anticoagulation acute 2024 10:30am Diabetic ulcer of right heel acute January 16, 2025 10:30am Former smoker acute January 16, 2025 10:30am History of amputation of toe acute January 16, 2025 10:30am History of edema acute December 10:30am Insulin dependent diabetes mellitus acute January 16, 2025 10:30am Obstructive sleep apnea acute 2024 10:30am Type 2 diabetes mellitus wit h diabetic polyneuropathy acute December 10:30am Bilateral leg edema chronic January 16, 2025 10:30am Dyspnea on exertion chronic January 16, 2025 10:30am Essential (primary) hypertension chronic January 16, 2025 10:30am HTN (hypertension) chronic December 202024 10:30am Hyperlipidemia chronic January 16, 2025 10:30am Morbid obesity chronic January 16, 2025 10:30am Non-pressure chronic ulcer o f other part of left foot with fat layer exposed chronic January 16 10:30am 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 January 16 10:30am Non-pressure chronic ulcer o f other part of right foot with fat layer exposed chronic January 16 10:30am Pickwickian syndrome chronic January 16, 2025 10:30am Type 2 diabetes mellitus chronic January 16, 2025 10:30am Venous insufficiency (chroni c) (peripheral) chronic January 16, 2025 10:30am Non-pressure chronic ulcer o f other part of right foot with fat layer exposed chronic February 13, 10:15am Non-pressure chronic ulcer o f other part of right foot with fat layer exposed chronic February 10:30am Non-pressure chronic ulcer o f other part of right lower leg with fat layer chronic March 06, 2025 10:30am [facility] Work Phone: 1([phone]) 621-997406-17-2025 Progress note Author Ramon Garcia [facility] Note Date/Time December 04, 2024 10:5 8am [facility] [address] [place] [address] Progress Note - Wound Care 12/04/24 1057 MR#: [id number] Acct: [id number] Name: LANI ZARAGOZA Rep #:[id number] : [...] surgical shoe with heel offloading. 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 Patient has no other complaints. [...] Date Recorded By Document 11/20/24 10:17 KW [id number] 11/20/24 10:35 KW Document 11/27/24 09:35 KW [id number] 11/27/24 09:41 KW Document 12/04/24 10:12 KW [id number] 12/04/24 10:32 KW 11/20/24 11/27/24 12/04/24 10:17 09:35 10:12 - Today's Visit Information Type of service Follow-up Visit Follow-up Visit Follow-up Visit (Physician/AERIAL SURVEY TECHNICIAN (Physician/AERIAL SURVEY TECHNICIAN (Physician/AERIAL SURVEY TECHNICIAN ) ) ) Arrival Mode Wheelchair Wheelchair [...] Date Recorded By Document 11/20/24 10:17 KW [id number] 11/20/24 10:35 KW Document 11/27/24 09:35 KW [id number] 11/27/24 09:41 KW Document 12/04/24 10:12 KW [id number] 12/04/24 10:32 KW 11/20/24 11/27/24 12/04/24 10:17 [...] Recorded Date Recorded By Document 11/20/24 10:47 [id number] 11/20/24 10:49 Document 11/27/24 10:10 [facility] [id number] 11/27/24 10:20 [facility] Document 12/04/24 10:36 [id number] 12/04/24 10:47 11/20/24 11/27/24 12/04/24 10:47 10:10 [...] -Expiration Date 02/18/29 03/20/29 -Product Lot Number [id number] -Percent Used 100 100 -Lot number of Saline Used [id number] -Bleeding Controlled with Pressure Pressure Pressure -Treatment [...] Recorded Date Recorded By Document 11/20/24 11:12 [facility] [id number] 11/20/24 11:12 [facility] Document 11/27/24 10:20 [facility] [id number] 11/27/24 10:21 [facility] 11/20/24 11/27/24 11:12 10:20 Wound Care [...] Stable Ambulatory Status Wheelchair Wheelchair Transportation ecf [facility] Facility Type Carpenter/Labor Care Carpenter/Labor Care Facility Facility Assessment/Plan Assessment/Plan (1) Non-pressure [...] Cosigner Signature (if applicable): CC: ~ Signed [facility] Work Phone: 1(449) 548-434606-13-2025 Radiology Diagnostic study note [facility] Imaging Services [address] [place], [place] [address] Brain/Head without Contrast MR#: [id number] Acct: [id number] Name: LANI ZARAGOZA Rep #: [id number] : 1955 M 69 From: Francis Crawford MD PCP: Dr. Bernabe Reese MD Status: RE G CLI Study:Brain/Head without Contrast Date of Exa m: 11/29/24 Exam# [id number] Ordering Dr: Chris Shea MD PROCEDURE: BRAIN/HEAD WITHOUT CONTRAST 11/29/2024 REASON [...] Complete resolution of midline shift. [facility] CC: Dr. Bernabe Reese MD; Kelli Shea MD ~ Robotype Operator: Signed [facility]06-10-2025 Progress note Author Ramon Garcia [facility] Note Date/Time November 27, 2024 10:1 8am [facility] [address] [place] [address] Progress Note - Wound Care 11/27/24 1017 MR#: [id number] Acct: [id number] Name: LANI ZARAGOZA Rep #:[id number] : 1955 69 From: Ramon Garcia DPJoyce PCP: Dr. Bernabe Reese MD Status:RE G RCR Location: History of Present Illness Date of Service: 11/27/24 Chief Complaint: Right heel wound History of Wound: Patient has chronic wound to right heel in setting of diabeticneuropathy, poorly controlled diabetes, peripheral neuropathy, peripheral arterial disease, iron deficiency, chronic chronic anticoagulation. Patient denies constitutional symptoms. Patient ambulates in surgical shoe with heel offloading. 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 Patient has no other complaints. [...] Date Recorded By Document 11/20/24 10:17 KW [id number] 11/20/24 10:35 KW Document 11/27/24 09:35 KW [id number] 11/27/24 09:41 KW 11/20/24 11/27/24 10:17 09:35 - Today's Visit Information Type of service Follow-up Visit Follow-up Visit (Physician/AERIAL SURVEY TECHNICIAN (Physician/AERIAL SURVEY TECHNICIAN ) ) Arrival Mode Wheelchair Wheelchair Patient [...] Date Recorded By Document 11/20/24 10:17 KW [id number] 11/20/24 10:35 KW Document 11/27/24 09:35 KW [id number] 11/27/24 09:41 KW 11/20/24 11/27/24 10:17 09:35 [...] Date Recorded By Document 11/20/24 10:47 ÁNGEL [id number] 11/20/24 10:49 ÁNGEL 11/20/24 10:47 Wound Center Nurse 2 4.R [...] Recorded Date Recorded By Document 11/20/24 11:12 [facility] [id number] 11/20/24 11:12 [facility] 11/20/24 11:12 Wound Care Center Nurse [...] Discharge Condition Stable Ambulatory Status Wheelchair Transportation f Facility Type Carpenter/Labor Care Facility Assessment/Plan Assessment/Plan (1) Acute osteomyelitis [...] Cosigner Signature (if applicable): CC: ~ Signed [facility] Work Phone: [phone]) 860-131906-03-2025 Progress note Author Ramon Garcia [facility] Note Date/Time November 20, 2024 10:50 am [facility] [address] [place] [address] Progress Note - Wound Care 11/20/24 1049 MR#: [id number] Acct: [id number] Name: LANI ZARAGOZA Rep #:[id number] : [...] surgical shoe with heel offloading. 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 Patient has no other complaints. [...] Date Recorded By Document 11/20/24 10:17 KW [id number] 11/20/24 10:35 KW 11/20/24 10:17 - Today's Visit Information Type of service Follow-up Visit (Physician/AERIAL SURVEY TECHNICIAN ) Arrival Mode Wheelchair Patient Identification Verified [...] Recorded Date Recorded By Document 11/20/24 10:17 [id number] 11/20/24 10:35 11/20/24 10:17 Wound Center Nurse [...] Date Recorded By Document 11/20/24 10:47 ÁNGEL [id number] 11/20/24 10:49 ÁNGEL 11/20/24 10:47 Wound Center [...] Cosigner Signature (if applicable): CC: ~ Signed [facility] Work Phone: [phone] 316-590105-27-2025 Progress note Author Ramon Garcia [facility] Note Date/Time November 13, 2024 11:12 am [facility] [address] [place] [address] Progress Note - Wound Care 11/13/24 1104 MR#: [id number] Acct: [id number] Name: LANI ZARAGOZA Rep #:[id number] : [...] surgical shoe with heel offloading. 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 Patient has no other complaints. Objective Data Objective Data Vital Signs: Vital Signs Temp Pulse Resp BP O2 Del Method 96.2 F L 69 18 127/67 H Room Air 11/13/24 10:23 11/13/24 10:23 11/13/24 10:23 11/13/24 10:11/13/24 10:23 Oxygen Delivery Method Room Air Weight: [...] Date Recorded By Document 11/06/24 11:09 KW [id number] 11/06/24 11:11 KW Document 11/13/24 10:23 KW [id number] 11/13/24 10:35 KW 11/06/24 11/13/24 11:09 10:23 WC - Today's Visit Information Type of service Follow-up Visit Follow-up Visit (Physician/AERIAL SURVEY TECHNICIAN (Physician/AERIAL SURVEY TECHNICIAN ) ) Arrival Mode Walker Wheelchair Patient [...] Numeric Is Patient Pain Free? Yes Yes BUDDY - Nurse 1 - General Ulcer Measurement Start: 11/06/24 10:49 Freq: Status: Active Protocol: Activity Type Activity Date Activity User E-sign Co-sign Detail Recorded Client Recorded Date Recorded By Document 11/06/24 11:09 [id number] 11/06/24 11:11 KW Document 11/13/24 10:23 KW [id number] 11/13/24 10:35 11/06/24 11/13/24 11:09 10:23 Wound Center Nurse [...] Recorded Date Recorded By Document 11/06/24 10:53 [id number] 11/06/24 10:54 Document 11/13/24 11:03 [id number] 11/13/24 11:04 11/06/24 11/13/24 10:53 11:03 Wound [...] Date Recorded By Document 11/06/24 11:11 KW [id number] 11/06/24 11:12 KW 11/06/24 11:11 Wound Care [...] Cosigner Signature (if applicable): CC: ~ Signed [facility] Work Phone: 1(325) 459-802205-27-2025 Evaluation note* Diagnosis Onset Date Resolution Status Admit Date Acute osteomyelitis of right calcaneus acute November [...] necrosis of muscle chronic December 11 10:00am Arthritis acute January 16 10:30am Atrial fibrillation acute January 16, 2025 10:30am BiPAP (biphasic positive air way pressure) dependence acute January 16, 2025 10:30am Cellulitis of left toe acute Ju ly 2024 10:30am Chronic anticoagulation acute J tosin 2024 10:30am Diabetic ulcer of right heel acute January 16, 2025 10:30am Former smoker acute January 16, 2025 10:30am History of amputation of toe acute January 16, 2025 10:30am History of edema acute December 10:30am Insulin dependent diabetes mellitus acute January 16, 2025 10:30am Obstructive sleep apnea acute J tosin2024 10:30am Type 2 diabetes mellitus wit h diabetic polyneuropathy acute December 10:30am Bilateral leg edema chronic January 16, 2025 10:30am Dyspnea on exertion chronic January 16, 2025 10:30am Essential (primary) hypertension chr onic January 16, 2025 10:30am HTN (hypertension) chronic December 202024 10:30am Hyperlipidemia chronic January 16, 2025 10:30am Morbid obesity chronic January 16, 2025 10:30am Non-pressure chronic ulcer o f other part of left foot with fat layer exposed chronic January 16, 2025 10:30am 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 January 16 10:30am Non-pressure chronic ulcer o f other part of right foot with fat layer exposed chronic January 16 10:30am Pickwickian syndrome chronic January 16, 2025 10:30am Type 2 diabetes mellitus chronic January 16, 2025 10:30am Venous insufficiency (chroni c) (peripheral) chronic January 16, 2025 10:30am Non-pressure chronic ulcer o f other part of right foot with fat layer exposed chronic February 13, 025 10:15am [facility] Work Phone: 1(552) 609-270005-27-2025 Progress note [facility] [address] [place] [address] Progress Note - Wound Care 11/13/24 1104 MR#: [id number] Acct: [id number] Name: LANI ZARAGOZA Rep #:[id number] : [...] surgical shoe with heel offloading. 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 Patient has no other complaints. [...] Date Recorded By Document 11/06/24 11:09 KW [id number] 11/06/24 11:11 KW Document 11/13/24 10:23 KW [id number] 11/13/24 10:35 KW 11/06/24 11/13/24 11:09 10:23 - Today's Visit Information Type of service Follow-up Visit Follow-up Visit (Physician/AERIAL SURVEY TECHNICIAN (Physician/AERIAL SURVEY TECHNICIAN ) ) Arrival Mode Walker Wheelchair Patient [...] Date Recorded By Document 11/06/24 11:09 KW [id number] 11/06/24 11:11 KW Document 11/13/24 10:23 KW [id number] 11/13/24 10:35 KW 11/06/24 11/13/24 11:09 10:23 [...] during nurse 1 nurse 1dr in room WC - Nurse 2 - General Ulcer CM Notes Start: 11/06/24 10:49 Freq: Status: Active Protocol: Activity Type Activity Date Activity User E-sign Co-sign Detail Recorded Client Recorded Date Recorded By Document 11/06/24 10:53 JF [id number] 11/06/24 10:54 JF Document 11/13/24 11:03 JF [id number] 11/13/24 11:04 JF 11/06/24 11/13/24 10:53 11:03 [...] Date Recorded By Document 11/06/24 11:11 KW [id number] 11/06/24 11:12 KW 11/06/24 11:11 Wound Care [...] Cosigner Signature (if applicable): CC: ~ Signed [facility]05-20-2025 Progress note Author Ramon Garcia [facility] Note Date/Time November 06, 2024 10:58 am [facility] [address] [place] [address] Progress Note - Wound Care 11/06/24 1054 MR#: [id number] Acct: [id number] Name: LANI ZARAGOZA Rep #:[id number] : 1955 69 From: Ramon Garcia DPM PCP: Dr. Bernabe Reese MD Status:NC E RCR Location: History of Present Illness Date of Service: 11/06/24 Chief Complaint: Right heel wound History of Wound: Patient has chronic wound to right heel in setting of diabeticneuropathy, poorly controlled diabetes, peripheral neuropathy, peripheral arterial disease, iron deficiency, chronic chronic anticoagulation. Patient denies constitutional symptoms. Patient ambulates in surgical shoe with heel offloading. 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 Patient has no other complaints. Subjective Subjective Patient is 3 weeks postop from application of right lower extremity external fixation with wound debridement down to bone. Patient was placed on PICC line with IV antibiotics per infectious disease. Patient had a complication postoperatively and suffered a stroke and was ultimately transferred to [facility] which is why I have not seen [...] Cosigner Signature (if applicable): CC: ~ Signed [facility] Work Phone: 1(390) 336-202205-20-2025 Progress note [facility] [address] [place] [address] Progress Note - Wound Care 11/06/24 1054 MR#: [id number] Acct: [id number] Name: LANI ZARAGOZA Rep #:[id number] : 1955 69 From: Ramon Garcia DPM PCP: Dr. Bernabe Reese MD Status:NC E RCR Location: History of Present Illness Date of Service: 11/06/24 Chief Complaint: Right heel wound History of Wound: Patient has chronic wound to right heel in setting of diabeticneuropathy, poorly controlled diabetes, peripheral neuropathy, peripheral arterial disease, iron deficiency, chronic chronic anticoagulation. Patient denies constitutional symptoms. Patient ambulates in surgical shoe with heel offloading. 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 Patient has no other complaints. Subjective Subjective Patient is 3 weeks postop from application of right lower extremity external fixation with wound debridement down to bone. Patient was placed on PICC line with IV antibiotics per infectious disease. Patient had a complication postoperatively and suffered a stroke and was ultimately transferred to [facility] which is why I have not seen [...] 97.6 F L 80 16 160/71 H 0501/25 00:21 10/18/24 00:21 10/18/24 00:21 10/18/24 00:21 [...] Cosigner Signature (if applicable): CC: ~ Signed [facility]05-13-2025 Hospital Discharge instructions* Discharge Instructions* Francine Siddiqui APRN-AERIAL SURVEY TECHNICIAN - 10/30/2024 10:41 AM EDT Please take [...] you at all times. Stroke Education: visit [email or web address] What are the most common symptoms of [...] all ordered medications [] Avoid non-prescription or bmxq-fgt-gxgujtw medication not cleared by your physician [x] [...] may call the neurovascular doctors office at [phone], if you have questions Mon-Fri between 8:30 am and 4:30 pm. - For off hours or the weekend you may call the office or the hospital ecdis n navigation operator at and ask for the stroke resident section plotter operator to be paged. - If you have any other questions or needs, please call Belinda RODRIGUEZ, RN, Stroke Nurse Navigator at [phone] Mon-Fri between 7:00am and 3:00pm. - Additional assistance may be found by reaching out to our Case Management Office at [phone]. *In the event of an Emergency: If you have a physical or psychiatric emergency call [phone] or go to your local emergency department. You should also call your outpatient provider's emergency number. Other reference numbers: [facility] Intake Office at [phone]; [facility] at [phone]; or Suicide Prevention Hotline at 386-726-0167. *Helpful phone numbers: Free Crisis Hotline: 1-703-930-TALK ( ) Suicide Hotline: 871.290.8882 Seniors Suicide Hotline: 390.986.5460 [facility] Youth: 354.183.1214 Mental Health of [place]: [phone] (free counseling) [facility] Access Hotline: 727-919-AXVW (791-985-2440) 24-hour crisis text hotline: Text the word 4hope to 140-115 for crisis support. Texting this number is [...] you may qualify for Medicaid/public assistance: The [facility] Department of Job and Family Services can now process sparks (TANF), food (SNAP) and Medicaid Applications over the phone. Please call 3-789-143-[place] ([phone]) and apply over the phone or apply online at www.benefits.[place].gov. Tuesday-Tuesday 8am-12pm noon. Medication Assistance Programs [employer] members can buy 100+ common prescriptions for FREE, $3 or $6. Annual membership is $36 for individuals and $72 for families (up to 6 people, including pets). Sign up online or enroll at your nearest pharmacy! -[employer], web site can provide a significant number of coupons for medications at a much lower nicholson. [place] Department of Aging The Department of Aging administers programs and services to meet the needs of older [place]. Services and resources offered per [facility] may include transportation, housekeeping, meals and nutrition, personal care, case management, safety monitoring, home medical equipment, legal services, director financial analysis, health and wellness, education, caregiver support, respite care, etc. Call to be connected to the area agency on aging serving your community or visit Gen[employer].[place].gov/find-services. Request a consultation with a community resource expert at ltssi.age.[place].gov/ [facility] Stroke Support The [facility] Stroke Support Group is for stroke survivors, friends, and family members. Meets on the Tuesday of each month from 6:30pm-7:30pm at [facility] ([address]; [place] [address]). Contact Ariane Donato, at [phone] or [email or web address]. If you are outside of the [place] area, contact The [place] Stroke [employer] at www.stroke.org or 3-314-1-STROKE or for support groups in your area. You may also refer to the Your Care after a Stroke education booklet at go.os.edu/kxev1821 for additional resources. * Medications* AHSAN Hutchins - 10/30/2024 10:41 AM EDT Know your medicines Make sure you know why you are taking each medicine. Make a master list of all your medicines. Write down the medicine names and doctors' names. Includedoses and side effects too. And write down why you take each medicine. Include all prescription gnfjliv-fxd-xhnhhmu medicines, vitamins, and supplements. Keep this list [...] plan your refills so that you can apple picker all your medicines at the same [...] breathing -Fever or chills [facility] Miscellaneous Notes* Nursing Notes - Felicitas [...] Carballo - 10/25/2024 1:58 PM EDT Problem: LEAD INVESTIGATOR - Language Goal: Word Retrieval Strategies for [...] and reading comprehension skills. Outcome: Ongoing Problem: LEAD INVESTIGATOR - Cognition Goal: Metacognition - Patient will [...] functional mobility and safety. Outcome: Progressing Problem: LEAD INVESTIGATOR - Cognition Goal: Metacognition - Patient will identify at least x2-3 deficits related to medical condition andhow deficits will impact ability to return home with fading cues to improve safety and independence Outcome: Progressing Problem: LEAD INVESTIGATOR - Language Goal: Word Retrieval Strategies for [...] intake, Declines supplements, and has a wound. [employer] has notified RD via IHIST Chat about referral. RD to follow. * Nursing Notes - Cassandra Overton RN - 10/23/2024 2:00 AM EDT [facility] admission to [facility], from another [facility] inpatient unit a dual RN initial assessment of skin condition was performed by Cassandra Overton RN and Amelia Eid RN. Skin Assessment: Skin not within defined limits. - Wound(s) identified: Yes Gaetano Score: 13 LDA Added:No LDA previously charted Cassandra Overton RN * Plan of Care - Kelsey Armenat RN - 10/22/2024 11:15 PM EDT Problem: Adult Inpatient Plan of Care Goal: Plan of Care Review Outcome: Progressing Goal: Patient-Specific Goal (Individualized) Outcome: Progressing Goal: Optimal Comfort and Wellbeing Outcome: Progressing Goal: Readiness for Transition of Care Outcome: Progressing Problem: Stroke, Intracerebral Hemorrhage Goal: Optimal Nutrition Intake Outcome: Progressing * Plan of Care - Rebecca Lantigua, PT - 10/22/2024 12:56 PM EDT Problem: [...] feel free to contact the podiatry resident section plotter operator. We will be happy to become involvedin [...] Spann - 10/18/2024 9:47 AM EDT Problem: LEAD INVESTIGATOR - Cognition Goal: Metacognition - Patient will identify at least x2-3 deficits related to medical condition andhow deficits will impact ability to return home with fading cues to improve safety and independence Outcome: Ongoing Problem: LEAD INVESTIGATOR - Language Goal: Word Retrieval Strategies for [...] Yahaira Ohara RN [facility] of Present illness Narrative* ROSALINDA Lugo - 10/30/2024 9:20 AM EDT Care Management Discharge Note Selected Continued Care - Admitted Since 10/16/2024 Destination Coordination complete. Service Provider Services Address Phone Fax Patient Preferred [facility] [place] [address] [phone] -- Transport Request Mode of Transfer: [facility] Name of Discharge Transport Company: [employer] Discharge Transport ETA: 10/30/2024 @10:00am Patient medically stable for discharge per physician/medical team. Patient/Allergy And Immunology Specialist remain inagreement with the discharge plan. Insurance authorization has been received and a HENS has been completed for discharge. MISTY Mcdaniels LSW Maintenance Shop Technician Available by Secure Chat * ROSALINDA Lugo - 10/29/2024 9:19 AM EDT Placement Plan Expected Discharge Date: Referred Level of Care: SNF Barriers: Medical readiness, transportation. Current Referrals and Status 1. [facility] - Available and Reserved Patient still anticipated to be medically ready for discharge tomorrow morning. SW will remain available to assist as needed. MISTY Mcdaniels LSW Maintenance Shop Technician Available by Secure Chat * Francine Siddiqui, DECAL CUTTER-AERIAL SURVEY TECHNICIAN - 10/29/2024 7:48 AM EDT Neurovascular Stroke Service Intracerebral Hemorrhage Note IDENTIFYING INFORMATION Lani Zaragoza MR# [id number] 10/29/2024 HISTORY OF PRESENT ILLNESS Lani Zaragoza [...] Intracerebral Hemorrhage Score Intracerebral Hemorrhage (ICH) Scale Leighton Coma Scale Points: 0-->GCS 13-15 Age>/=80: 0-->no Infratentorial Origin of Hemorrhage?: 0-->no ICH Volume >/= 30cm(3): 0-->no (less than 30cm(3)) Intraventricular Hemorrhage?: 1-->yes ICH Score (Calculated): 1 Score 30 Day Mortality following ICH 0 0% Mortality 1 13% Mortality 2 26% Mortality 3 72% Mortality 4 97% Mortality 5 100% Mortality ASSESSMENT AND PLAN Neuro: Likely left STEAM PRESS OPERATOR territory infarct with hemorrhagic transformation: CTH: Acute left temporo-occipital parenchymal hemorrhage, likely hemorrhagic transformation of recent STEAM PRESS OPERATOR territory infarct CTA brain/neck: Equivocal for left STEAM PRESS OPERATOR occlusion. No significant carotid or vertebral artery stenosis MRI brain w and w/o: Stable IPH/IVH. TTE: EF 60-65%; no PFO LDL 105, A1c 10.5 -Stroke Etiology (TOAST Criteria): Likely hemorrhagic transformation of recent R STEAM PRESS OPERATOR infarct which is likely cardioembolic in nature -Antiplatelet plan: Resumed Aspirin 81 mg daily on 10/24 -Statin therapy: Atorvastatin 40 mg daily -Blood Pressure goal: SBP <160 -Continue to hold Eliquis for now, plan to resume 3 weeks post-bleed (11/06/2024) Hemorrhagic Stroke Core Measures -[facility] on admission 16 -Patient has been started [...] Medication Requiring Central Venous Administration : multiple, terminal operator IV antibiotic therapy Can line/s be removed today? Select all that apply Line 1, no cannot be removed Dressing/s Clean/Dry/Intact?: Select all that apply Line 1, Dressing clean, dry, intact Francine Siddiqui, DECAL CUTTER-AERIAL SURVEY TECHNICIAN 10/29/2024 12:17 PM VITAL SIGNS Temp: [97.6 [...] 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 No progressive mass effect. Stable [...] Electronically Signed By: Annamarie Del Castillo M.D., [facility] on 10/18/2024 10:13 AM XR CHEST 1 [...] See above ANGIO BRAIN/NECK Final Result IMPRESSION: \ 1. Examination is equivocal for mid/distal left [...] discussed the critical finding/s of possible left STEAM PRESS OPERATOR occlusion with Kristen Ramon MD on 10/16/2024 8:57 PM. I personally viewed and interpreted these images and I have reviewed and approved this report. STROKE HEAD-STROKE ALERT ONLY Final Result IMPRESSION: 1. Acute left temporo-occipital parenchymal hemorrhage, likely hemorrhagic transformation of recent STEAM PRESS OPERATOR territory infarct. 2. Trace interventricular hemorrhage. 3. [...] vancomycin 750 mg Intravenous Q12HNS Cosigned by Remberto Joshi MD at 10/29/2024 2:30 PM EDT Associated attestation - Remberto Joshi MD - 10/29/2024 2:30 PM EDT Attending Physician Note (GC) I interviewed and examined this patient with the INSTRUCTIONAL TECHNOLOGY TEACHER. I reviewed the history and exam detailed [...] System for discharge. Susanne Goyal Care Management Pipelines Supervisor * NASH Duval - 10/28/2024 12:27 PM EDT Placement Plan Expected Discharge Date: 10/31/2024 Referred Level of Care: SNF Barriers: Medical stability, Transportation Current Referrals and Status 1. [facility] - Accepted/Selected Received confirmation from Brandon at [facility] that they can accept and are aware of pt's IV antibiotic needs. Pt not ready for discharge today (awaiting final Endo recs). CM social work case manager set up transport for Tuesday at 10am via [employer] (no transport available on Tuesday). Updated team. PRANAV Finley Stone Rigger *Please note that I am a float medical social consultant and that I may not cover the same service everyday. Please call the main Social Work office at for up to date coverage. For Social Work assistance for the weekend, please contact for assistance as needed (8:00am - 4:30pm): LORI: [phone] Michele: [phone] Rasheed: [phone] Francisco/MICU/PCU Remberto: [phone] * Susanne Goyal - 10/28/2024 12:25 PM EDT Care Management Progress Note Transportation for discharge arranged Mode of Transfer: (P) BLS Name of Discharge Transport Company: (P) [facility] ETA: (P) 10/30/2024 @10:00am Pick-up from [facility] 1078/A Destination [facility] [address] [place] [address] Susanne Goyal Care Management Pipelines Supervisor * Elizabeth Agosto MD - 10/28/2024 7:11 [...] GFR >90 10/26/2024 HCT:LTO ICH with Left STEAM PRESS OPERATOR stroke CTA:mid/distal left posterior cerebral artery occlusion MRI: L STEAM PRESS OPERATOR stroke with ICH transformation ECHO: EF okay Neuro Exam: MS: Awake. Language: Intact speech and language. Mild dysarthria CN: 2-12 intact. RFD, Motor: 5/5 all over on left and RHP Assessment: Lani Zaragoza is a 69 y.o. 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 Strokefrom Afib Plan: Resume ASA today. Switch to Ac in 3 weeks Can Dc ASA once on AC statin HTN: Aim normotension. Coreg resumed at low dose DM: Insulin RLE OM: Abx continue course per ID Continue statin PT/OT evaluation Risk factor modification and stroke education provided. DVT prophylaxis Start dispo planning Elizabeth Agosto MD Instructor Kindergarten Department of Neurology * Nestor Norton, DECAL CUTTER-AERIAL SURVEY TECHNICIAN - 10/28/2024 5:24 AM EDT Neurovascular Stroke Service Intracerebral Hemorrhage Note IDENTIFYING INFORMATION Lani Zaragoza MR# [id number] 10/28/2024 HISTORY OF PRESENT ILLNESS Lani Zaragoza [...] parenchymal hemorrhage, likely hemorrhagic transformation of recent STEAM PRESS OPERATOR territory infarct CTA brain/neck: Equivocal for left STEAM PRESS OPERATOR occlusion. No significant carotid or vertebral artery stenosis MRI brain w and w/o: Stable IPH/IVH. TTE: EF 60-65%; no PFO LDL 105, A1c 10.5 -Stroke Etiology (TOAST Criteria): Likely hemorrhagic transformation of recent R STEAM PRESS OPERATOR infarct which is likely cardioembolic in nature -Antiplatelet plan: Resumed Aspirin 81 mg daily on 10/24 -Statin therapy: Atorvastatin 40 mg daily -Blood Pressure goal: SBP <160 -Continue to hold Eliquis for now, plan to resume 3 weeks post-bleed and a repeat head CT (11/06/2024) Hemorrhagic Stroke Core Measures -[facility] on admission 16 -Patient has been started [...] Medication Requiring Central Venous Administration : multiple, terminal operator IV antibiotic therapy Can line/s be removed today? Select all that apply Line 1, no cannot be removed Dressing/s Clean/Dry/Intact?: Select all that apply Line 1, Dressing clean, dry, intact Nestor Norton, JENNIFER-AERIAL SURVEY TECHNICIAN 10/28/2024 9:43 AM VITAL SIGNS Temp: [97.8 [...] 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 No progressive mass effect. Stable [...] See above ANGIO BRAIN/NECK Final Result IMPRESSION: \ 1. Examination is equivocal for mid/distal left [...] discussed the critical finding/s of possible left STEAM PRESS OPERATOR occlusion with Kristen Ramon MD on 10/16/2024 8:57 PM. I personally viewed and interpreted these images and I have reviewed and approved this report. STROKE HEAD-STROKE ALERT ONLY Final Result IMPRESSION: 1. Acute left temporo-occipital parenchymal hemorrhage, likely hemorrhagic transformation of recent STEAM PRESS OPERATOR territory infarct. 2. Trace interventricular hemorrhage. 3. [...] 10/28/2024 12:44 PM EDT * Anu Yancey [facility] - 10/27/2024 11:57 AM EDT Department of Pharmacy Pharmacokinetics Progress Note Patient: [facility]ani [facility] Assessment and Plan: Based upon renal function, [...] further questions. Name: Anu Yancey RPH Phone: [phone] Date/Time: 10/27/2024 11:57 AM * NASH Duval - 10/27/2024 10:12 AM EDT Placement Plan Expected Discharge Date: 10/29/2024 Referred Level of Care: SNF Barriers: Accepting facility, choice, medical readiness, transportation. Current Referrals and Status [facility] Available 2. [facility] Available/selected 3. [facility] Available 4. [facility] Viewed 5. [facility] Unavailable Spoke with pt's sister/HCPOA Norma, who reports that she spoke with the admissions team at the [facility] yesterday and they advised her that she would need to obtain a group insurance special agent in [place] andhave them come to [facility] to do a financial POA with [...] discussed placement options and prefer placement at [facility] at this time. ALVARADO left message for admissions at [facility] to confirm choice and inquire when they can accept the pt for admission. ALVARADO will follow. PRANAV Finley Stone Rigger *Please note that I am a float medical social consultant and that I may not cover the same service everyday. Please call the main Social Work office at for up to date coverage. For Social Work assistance for the weekend, please contact for assistance as needed (8:00am - 4:30pm): BAS: [phone] Bautista: [phone] Rasheed: [phone] Ross/MICU/PCU Remberto: [phone] * Elizabeth Agosto MD - 10/27/2024 7:13 [...] GFR >90 10/26/2024 HCT:LTO ICH with Left STEAM PRESS OPERATOR stroke CTA:mid/distal left posterior cerebral artery occlusion MRI: L STEAM PRESS OPERATOR stroke with ICH transformation ECHO: EF okay [...] presents as hemorrhagic stroke alert from left STEAM PRESS OPERATOR ischemic stroke with hemorrhagic transformation. Strokefrom Afib Plan: Resume ASA today. Switch to Ac in 3 weeks Can Dc ASA once on AC statin HTN: Aim normotension. Cored resumed at low dose DM: Insulin RLE OM: Abx continue course per ID Continue statin PT/OT evaluation Risk factor modification and stroke education provided. DVT prophylaxis Start dispo planning Elizabeth Agosto MD Instructor Kindergarten Department of Neurology * Nestor Norton APRN-AERIAL SURVEY TECHNICIAN - 10/27/2024 5:16 AM EDT Neurovascular Stroke Service Intracerebral Hemorrhage Note IDENTIFYING INFORMATION Lani Zaragoza MR# [id number] 10/27/2024 HISTORY OF PRESENT ILLNESS Lani Zaragoza [...] parenchymal hemorrhage, likely hemorrhagic transformation of recent STEAM PRESS OPERATOR territory infarct CTA brain/neck: Equivocal for left STEAM PRESS OPERATOR occlusion. No significant carotid or vertebral artery stenosis MRI brain w and w/o: Stable IPH/IVH. TTE: EF 60-65%; no PFO LDL 105, A1c 10.5 -Stroke Etiology (TOAST Criteria): Likely hemorrhagic transformation of recent R STEAM PRESS OPERATOR infarct which is likely cardioembolic in nature -Antiplatelet plan: Resumed Aspirin 81 mg daily on 10/24 -Statin therapy: Atorvastatin 40 mg daily -Blood Pressure goal: SBP <160 -Continue to hold Eliquis for now, plan to resume 3 weeks post-bleed and a repeat head CT (11/06/2024) Hemorrhagic Stroke Core Measures -TXISS on admission 16 -Patient has been started [...] Medication Requiring Central Venous Administration : multiple, terminal operator IV antibiotic therapy Can line/s be removed today? Select all that apply Line 1, no cannot be removed Dressing/s Clean/Dry/Intact?: Select all that apply Line 1, Dressing clean, dry, intact Nestor Norton APRN-AERIAL SURVEY TECHNICIAN 10/27/2024 9:13 AM VITAL SIGNS Temp: [97.7 [...] 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 No progressive mass effect. Stable [...] See above ANGIO BRAIN/NECK Final Result IMPRESSION: \ 1. Examination is equivocal for mid/distal left [...] discussed the critical finding/s of possible left STEAM PRESS OPERATOR occlusion with Kristen Ramon MD on 10/16/2024 8:57 PM. I personally viewed and interpreted these images and I have reviewed and approved this report. STROKE HEAD-STROKE ALERT ONLY Final Result IMPRESSION: 1. Acute left temporo-occipital parenchymal hemorrhage, likely hemorrhagic transformation of recent STEAM PRESS OPERATOR territory infarct. 2. Trace interventricular hemorrhage. 3. [...] readiness, transportation. Current Referrals and Status [facility] Available 2. [facility] Available 3. [facility] Available 4. [facility] Viewed [facility]. [facility] Unavailable SW left for admissions at the [place] requesting final determination regarding accepting patient,as patient is currently with appropriate capacity to assist with Medicaid application and/or complete a financial POA per primary team. MISTY Mcdaniels, CONSUMER MARKETING SPECIALIST Maintenance Shop Technician Available by Secure Chat * Elizabeth Agosto [...] GFR >90 10/26/2024 HCT:LTO ICH with Left STEAM PRESS OPERATOR stroke CTA:mid/distal left posterior cerebral artery occlusion MRI: L STEAM PRESS OPERATOR stroke with ICH transformation ECHO: EF okay [...] presents as hemorrhagic stroke alert from left STEAM PRESS OPERATOR ischemic stroke with hemorrhagic transformation. Strokefrom Afib Plan: Resume ASA today. Switch to Ac in 3 weeks Can Dc ASA once on AC statin HTN: Aim normotension DM: Insulin RLE OM: Abx continue course per ID Continue statin PT/OT evaluation Risk factor modification and stroke education provided. DVT prophylaxis Start dispo planning Elizabeth Agosto MD Instructor Kindergarten Department of Neurology * Roz Alejandre, DECAL CUTTER-AERIAL SURVEY TECHNICIAN - 10/26/2024 6:00 AM EDT Neurovascular Stroke Service Intracerebral Hemorrhage Note IDENTIFYING INFORMATION Lani Zaragoza MR# [id number] 10/26/2024 HISTORY OF PRESENT ILLNESS Lani Zaragoza [...] Intracerebral Hemorrhage Score Intracerebral Hemorrhage (ICH) Scale Leighton Coma Scale Points: 0-->GCS 13-15 Age>/=80: 0-->no [...] parenchymal hemorrhage, likely hemorrhagic transformation of recent STEAM PRESS OPERATOR territory infarct CTA brain/neck: Equivocal for left STEAM PRESS OPERATOR occlusion. No significant carotid or vertebral artery stenosis MRI brain w and w/o: Stable IPH/IVH. TTE: EF 60-65%; no PFO LDL 105, A1c 10.5 -Stroke Etiology (TOAST Criteria): Likely hemorrhagic transformation of recent R STEAM PRESS OPERATOR infarct which is likely cardioembolic in nature -Antiplatelet plan: Resumed Aspirin 81 mg daily on 10/24 -Statin therapy: Atorvastatin 40 mg daily -Blood Pressure goal: SBP <160 -Continue to hold Eliquis for now, plan to resume 3 weeks post-bleed and a repeat head CT (11/06/2024) Hemorrhagic Stroke Core Measures -[facility] on admission 16 -Patient has been started [...] Medication Requiring Central Venous Administration : multiple, correction IV antibiotic therapy Can line/s be removed today? Select all that apply Line 1, no cannot be removed Dressing/s Clean/Dry/Intact?: Select all that apply Line 1, Dressing clean, dry, intact Roz Alejandre, DECAL CUTTER-AERIAL SURVEY TECHNICIAN 10/26/2024 1:36 PM VITAL SIGNS Temp: [97 [...] 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 No progressive mass effect. Stable [...] Electronically Signed By: Annamarie Del Castillo M.D., [facility] on 10/18/2024 10:13 AM XR CHEST 1 [...] See above ANGIO BRAIN/NECK Final Result IMPRESSION: \ 1. Examination is equivocal for mid/distal left [...] discussed the critical finding/s of possible left STEAM PRESS OPERATOR occlusion with Kristen Ramon MD on 10/16/2024 8:57 PM. I personally viewed and interpreted these images and I have reviewed and approved this report. STROKE HEAD-STROKE ALERT ONLY Final Result IMPRESSION: 1. Acute left temporo-occipital parenchymal hemorrhage, likely hemorrhagic transformation of recent STEAM PRESS OPERATOR territory infarct. 2. Trace interventricular hemorrhage. 3. [...] readiness, transportation. Current Referrals and Status [facility] Available 2. [facility] Available 3. [facility] Available 4. [facility] Viewed 5. [facility] Unavailable Still awaiting response from the [facility] at this time. SW updated patient at bedside who said he maybe agreeable to searching for a new facility if necessary. Patient agreeable to SW following up in the AM. MISTY Mcdaniels, CONSUMER MARKETING SPECIALIST Maintenance Shop Technician Available by Secure Chat * EVETTE Carballo - 10/25/2024 1:58 PM EDT Acute Care Speech Language Pathology Treatment Best mode of Communication: Spoken language Communication Strategies: eliminate distractions Discharge Recommendations: Based on the below outcome measures/assessment score(s) and LEAD INVESTIGATOR clinicaljudgment, discharge destination recommendation is: [facility] Facility Barriers to discharge home: 1:1 assist needed for IADL's including medication management and finances Supporting factors for discharge setting: Impaired cognitive skills limiting independence (Impairedreading skills) Acute LEAD INVESTIGATOR Outcomes Tracking Communicate basic wants and needs?: yes Demo insight/appreciation of deficits?: yes Complete basic problem solving?: yes Current therapy frequency recommendation in acute: Speech/Lang/Cog Therapy Frequency: 3 times a week Clinical Impression: Lani Zaragoza presents with fluent aphasia (anomic aphasia) given s/p L STEAM PRESS OPERATOR CVA, L temporal ICH andconcerns for cognitive communication impairment, as well as concern for vision deficits vs true linguistic deficits. Patient states he has needed updated glasses prescription for a while, although reports worsening vision post stroke. Patient with insight into inaccuracy of phrases read aloud. Patient also stating I forget what kind of dog it's called when discussing his sister's pets, but immediately identified the dog breed. No other perceived instances of anomia throughout entirety of session. Reports c/o being slower in conversation, consistent with ongoing delayed processing throughout. Of note, patient also complaints of forgetting information frequently, noted deficits in orientation, working memory and delayed recall tasks, although underlying aphasia possibly impacting reliability of cognitive assessment. Recommend continue ongoing LEAD INVESTIGATOR services to assist in patient's abilities to return to [facility]. Subjective information: Patient reclined in bed, agreeable [...] 0 Oxygen Concentration (%): [21] 21 Acute LEAD INVESTIGATOR Goals Plan of Care by EVETTE Carballo at 10/25/2024 1:58 PM Version 1 of 1 Problem: LEAD INVESTIGATOR - Language Goal: Word Retrieval Strategies for Conversation - Patient will state and/or demonstrate understanding of trained strategies targeting anomia with no more than min cues to use strategies during functional conversation to reduce communication breakdowns Outcome: Ongoing Tx: Reviewed word finding strategies during anomia during conversation. LEAD INVESTIGATOR educated regarding circumlocution strategies to assist with [...] x2 single step written commands. Patient stating that doesn't make sense after reading aloud incorrect words. Deferred further trials. Problem: LEAD INVESTIGATOR - Cognition Goal: Metacognition - Patient will identify at least x2-3 deficits related to medical condition andhow deficits will impact ability to return home with fading cues to improve safety and independence Outcome: Progressing Tx: Patient able to state that he was in the hospital for a foot surgery and then apparently I hada stroke. Patient states he is now having difficulties with motor skills on on his right side and that he can't remember things very well. States he is not able to get up and walk on his own. Patient Education/Instruction Learners: Patient Education provided: Role of this discipline, Communication strategies Teaching method: Verbal Education/Instruction Learner response: Needs review Learning preferences: Auditory Plan for next session: 10/25: good candidate; ongoing reading/writing, anomia strategies LEAD INVESTIGATOR Outcomes: LEAD INVESTIGATOR Outcomes / Standardized Measures Score The Orientation [...] 30 Seconds: 20-24 seconds or 36-40 seconds Shok-Vbil-Pbgn: three correct repetitions Go / No-Go: correct response on each trial Address Recall: no recall Total Score: 17 Speech Language Pathologist: Jose Sr LEAD INVESTIGATOR Time In: 1358 Time Out: 1414 Total Visit Time: 16 minutes Total Treatment Time (skilled, billable minutes): 16 minutes Non-billable assistance during session: NA Assisted by during session: NA PPE used during patient interaction: gloves Patient location/status at end of session: bed with head of bed elevated Patient alarms at end of session: none altered Needs in reach. LEAD INVESTIGATOR Evaluation and Treatment Time Speech Therapy - Individual 87992: 16 Upon discontinuation of Acute Care Speech [...] presents as hemorrhagic stroke alert from left STEAM PRESS OPERATOR ischemic stroke with hemorrhagic transformation. Stroke from Afib. Of note, recently admitted to [facility] 10/09 for chronic foot wound s/p debridement with podiatry. Discharged to SNF 10/16 and admitted to [facility] from SNF d/t stroke. Past History No [...] at bedside this afternoon. Pt unavailable, with LEAD INVESTIGATOR. Will continue to follow and follow-up as able/per protocol. Nutrition Focused Physical Exam: Nutrition Focused Physical Exam Completed?: deferred Reason For Deferral: pt unavailable, with LEAD INVESTIGATOR % PO Intake per docflowsheets: Average of [...] Standing Number of Occurrences: 1 Ht: 5' 9 Current Wt: 163 kg (359#) Admit Wt: [...] Needs: Weight Used: 73 kg (IBW) EEN: 5065-8120 kcal/day (30-35 kcal/kg) EPN: 110-146 g/day (1.5-2 g/kg) EFN: 2190 mL/day (30 mL/kg) Malnutrition Statement: Does the patient meet criteria for malnutrition: Unable to assess *Based on [employer] and [employer]EN Indicators to Diagnose Malnutrition (AAIM) criteria (2012) Kathy Avila, , RD, LD, CSNC Pager #[phone] * Elizabeth Agosto MD - 10/25/2024 7:41 [...] GFR >90 10/25/2024 HCT:LTO ICH with Left STEAM PRESS OPERATOR stroke CTA:mid/distal left posterior cerebral artery occlusion MRI: L STEAM PRESS OPERATOR stroke with ICH transformation ECHO: EF okay [...] presents as hemorrhagic stroke alert from left STEAM PRESS OPERATOR ischemic stroke with hemorrhagic transformation. Strokefrom Afib Plan: Resume ASA today. Switch to Ac in 2-[address] before starting. Can Dc ASA once on AC CT in am statin HTN: Aim normotension DM: Insulin RLE OM: Abx continue course per ID Continue statin PT/OT evaluation Risk factor modification and stroke education provided. DVT prophylaxis Start dispo planning Elizabeth Agosto MD Instructor Kindergarten Department of Neurology * Roz Alejandre, DECAL CUTTER-AERIAL SURVEY TECHNICIAN - 10/25/2024 7:17 AM EDT Neurovascular Stroke Service Intracerebral Hemorrhage Note IDENTIFYING INFORMATION Lani Zaragoza MR# [id number] 10/25/2024 HISTORY OF PRESENT ILLNESS Lani Zaragoza [...] Intracerebral Hemorrhage Score Intracerebral Hemorrhage (ICH) Scale Leighton Coma Scale Points: 0-->GCS 13-15 Age>/=80: 0-->no [...] parenchymal hemorrhage, likely hemorrhagic transformation of recent STEAM PRESS OPERATOR territory infarct CTA brain/neck: Equivocal for left STEAM PRESS OPERATOR occlusion. No significant carotid or vertebral artery stenosis MRI brain w and w/o: Stable IPH/IVH. TTE: EF 60-65%; no PFO LDL 105, A1c 10.5 -Stroke Etiology (TOAST Criteria): Likely hemorrhagic transformation of recent R STEAM PRESS OPERATOR infarct which is likely cardioembolic in nature -Antiplatelet plan: Resumed Aspirin 81 mg daily on 10/24 -Statin therapy: Atorvastatin 40 mg daily -Blood Pressure goal: SBP <160 -Continue to hold Eliquis for now, plan to resume 3 weeks post-bleed and a repeat head CT (11/06/2024) Hemorrhagic Stroke Core Measures -[facility] on admission 16 -Patient has been started [...] (Resolved) TODD -Pt with dyspnea at rest 4/30; BNP 962 -Pt spot-diuresed in NCCU, 20mg Lasix ordered daily at transfer for ongoing diuresis -Fluid goal -1L to -2L in NCCU; aim for euvolemia now -Nocturnal BiPAP CENTRAL LINES: Central Line LDAs Active Central Line Access Devices Name Placement date Placement time Site Days PICC Line - Single Lumen 10/16/24224910/16/242249 -- 8 Central Line Indications: Medication Requiring Central Venous Administration : multiple, correction IV antibiotic therapy Can line/s be removed today? Select all that apply Line 1, no cannot be removed Dressing/s Clean/Dry/Intact?: Select all that apply Line 1, Dressing clean, dry, intact Roz Alejandre, DECAL CUTTER-AERIAL SURVEY TECHNICIAN 10/25/2024 11:22 AM VITAL SIGNS Temp: [98 [...] 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 No progressive mass effect. Stable [...] Electronically Signed By: Annamarie Del Castillo M.D., [facility] on 10/18/2024 10:13 AM XR CHEST 1 [...] See above ANGIO BRAIN/NECK Final Result IMPRESSION: \ 1. Examination is equivocal for mid/distal left [...] discussed the critical finding/s of possible left STEAM PRESS OPERATOR occlusion with Kristen Ramon MD on 10/16/2024 8:57 PM. I personally viewed and interpreted these images and I have reviewed and approved this report. STROKE HEAD-STROKE ALERT ONLY Final Result IMPRESSION: 1. Acute left temporo-occipital parenchymal hemorrhage, likely hemorrhagic transformation of recent STEAM PRESS OPERATOR territory infarct. 2. Trace interventricular hemorrhage. 3. [...] EDT Introduced self and role of the human anatomy teacher to patient. Provided emotional and spiritual support and the patient responded by sharing their experience and discussed the following:family, kinza, concerns, support, losses, and work. Patient encouraged to request a human anatomy teacher as needed. Chaplains are available 24 hours a day and 7 days a week. For urgent matters in [facility], please page [phone]. If the request is not urgent, please enter a consult. Consults are responded to within 24 hours. Kassie Lagunas, PhD, MDiv, MA, [place] Residency Program Coordinator 10/24/24 1930 Clinical Encounter Type Visited With [...] Kinza issues;Meaning of illness;Expectations;Family issues;Coping mechanism;Treatment decisions Cardiopulmonary Technologist Chief Education Cardiopulmonary Technologist Chief Service Available Yes Educated Patient Topic Coping Skills;Stress management Outcomes Patient Outcomes Reduced distress;Progressed towards acceptance Plan of Care Continue Visiting PRN Referred to RN;Social Work/PCRM * ROSALINDA Lugo - 10/24/2024 3:17 PM EDT Placement Plan Expected Discharge Date: Referred Level of Care: SNF Barriers: Accepting facility, choice, medical readiness, transportation. Current Referrals and Status [facility] Available 2. [facility] Available 3. [facility] Available 4. [facility] Viewed [facility]. [facility] Unavailable AVLARADO spoke with patient's sister and [place] [...] with SNFs and Norma tomorrow. MISTY Mcdaniels, CONSUMER MARKETING SPECIALIST Maintenance Shop Technician Available by Secure Chat * Rebecca Lantigua, PT - 10/24/2024 11:19 AM EDT Acute Physical Therapy Treatment Prior Gross Functional Mobility: independent Current AM-PAC score(s): CURRENT AM-PAC Mobility Raw Score: 6 Based on the above AM-PAC score(s) and PT clinical judgment, patient is a good candidate for discharge to [facility] Facility Barriers to discharge home: Patient needs [...] anterior weight shifting Mobility Assessment/Intervention: Rolling/Turning Mobility [place] Level: Rolling/Turning: maximum assist (25% patient effort) Physical Assist: Rolling/Turnin person assist Bed Features/Set-up: Rolling/Turning: Flat Skilled Rationale: Positioning, Sequencing, Hand placement, Verbal cues Skilled Intervention/Details: Rolling/Turning: pt completed bilateral rolling in bed for linen change and hygiene care Supine to Sit Mobility [place] Level: Supine->Sit: maximum assist (25% patient effort) Physical Assist: Supine->Sit: 2 person assist Bed Features/Set-up: Supine->Sit: Head of bed elevated, Use of bed rail Skilled Rationale: Positioning, Sequencing Skilled Intervention/Details: Supine->Sit: pt completed supine to sit with step by step cues forsequencing Transfer Assessment/Intervention: Gait/Functional Mobility Assessment/Intervention: Stairs Assessment/Intervention: Outcome Score(s): CURRENT [facility] Basic Mobility Inpatient Short Form Turning over in bed: 1 - Total Assistance Moving from lying on back to sittin - Total Assistance Moving to and from bed to chair: 1 - Total Assistance Sitting/standing from chair: 1 - Total Assistance Walk in hospital room: 1 - Total Assistance Climbing 3-5 steps with a railin - Total Assistance CURRENT [facility] Mobility Raw Score: 6 CURRENT [facility] Mobility Functional Limitation: 100.00% Impaired in Basic [...] Physical Therapy Discharge Summary. * Cory Guzman APRN-AERIAL SURVEY TECHNICIAN - 10/24/2024 10:15 AM EDT Neurovascular Stroke Service Intracerebral Hemorrhage Note IDENTIFYING INFORMATION Lani Zaragoza MR# [id number] 10/24/2024 HISTORY OF PRESENT ILLNESS Lani Zaragoza [...] parenchymal hemorrhage, likely hemorrhagic transformation of recent STEAM PRESS OPERATOR territory infarct CTA brain/neck: Equivocal for left STEAM PRESS OPERATOR occlusion. No significant carotid or vertebral artery stenosis MRI brain w and w/o: Stable IPH/IVH. TTE: EF 60-65%; no PFO LDL 105, A1c 10.5 -Stroke Etiology (TOAST Criteria): Likely hemorrhagic transformation of recent R STEAM PRESS OPERATOR infarct which is likely cardioembolic in nature -Antiplatelet plan: Resumed Aspirin 81 mg daily on 10/24 -Statin therapy: Atorvastatin 40 mg daily -Blood Pressure goal: SBP <160 -Continue to hold Eliquis for now, plan to resume 3 weeks post-bleed and a repeat head CT Hemorrhagic Stroke Core Measures -[facility] on admission 16 -Patient has been started [...] ASA 3 weeks post stroke -Started ASA / -Eliquis in 3 weeks after a head [...] Medication Requiring Central Venous Administration : multiple, terminal operator IV antibiotic therapy Can line/s be removed today? Select all that apply Line 1, no cannot be removed Dressing/s Clean/Dry/Intact?: Select all that apply Line 1, Dressing clean, dry, intact Cory Guzman APRN-AERIAL SURVEY TECHNICIAN 10/24/2024 2:42 PM VITAL SIGNS Temp: [97.6 [...] 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 No progressive mass effect. Stable [...] See above ANGIO BRAIN/NECK Final Result IMPRESSION: \ 1. Examination is equivocal for mid/distal left [...] discussed the critical finding/s of possible left STEAM PRESS OPERATOR occlusion with Kristen Ramon MD on 10/16/2024 8:57 PM. I personally viewed and interpreted these images and I have reviewed and approved this report. STROKE HEAD-STROKE ALERT ONLY Final Result IMPRESSION: 1. Acute left temporo-occipital parenchymal hemorrhage, likely hemorrhagic transformation of recent STEAM PRESS OPERATOR territory infarct. 2. Trace interventricular hemorrhage. 3. [...] vancomycin 750 mg Intravenous Q12HNS * Yahaira AlcocerJORDEN - 10/24/2024 9:32 AM EDT Acute Occupational Therapy Treatment Prior Gross Functional Mobility: independent Current AM-PAC score(s): CURRENT AM-PAC Activity Raw Score: 14 Based on the above AM-PAC score(s), and OT clinical judgment, discharge destination recommendation is: [facility]-Way Facility Barriers to discharge home: Patient needs [...] Extremity : non-weight bearing Subjective: Pt reported, I'm not going to be able to clear my bottom when educating pt on techniques for scooting [...] (Mild bilateral LEs.) Mobility Assessment/Intervention: Rolling/Turning Mobility [place] Level: Rolling/Turning: maximum assist (25% patient effort) [...] hygiene/lesvia-care post bladder incontinence. Scooting Bridging Mobility [place] Level: Scooting/Bridging: dependent (less than 25% patient effort) Physical Assist: Scooting/Bridgin person assist Bed Features/Set-up: Scooting/Bridging: Flat Supine to Sit Mobility [place] Level: Supine->Sit: maximum assist (25% patient effort) [...] time/effort for performance. Sit to Supine Mobility [place] Level: Sit->Supine: maximum assist (25% patient effort) [...] dependent assistance x 2. Outcome Score(s): CURRENT [facility] Daily Activity Inpatient Short Form Putting on/Taking [...] elbow extension/flexion, forearm pronation/supination, wrist extension/flexion, and grasp/release exercises. Overall, pt demonstrated adequate UE ROM [...] GFR >90 10/23/2024 HCT:LTO ICH with Left STEAM PRESS OPERATOR stroke CTA:mid/distal left posterior cerebral artery occlusion MRI: L STEAM PRESS OPERATOR stroke with ICH transformation ECHO: EF okay Neuro Exam: MS: Awake. Language: Intact speech and language. Mild dysarthria CN: 2-12 intact. RFD, Motor: 5/5 all over on left and RHP Assessment: Lani Zaragoza is a 69 y.o. 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 Strokefrom Afib Plan: Resume ASA today. Switch to Ac in 2-[address] before starting. Can Dc ASA once on AC statin HTN: Aim normotension DM: Insulin RLE OM: Abx continue course per ID Continue statin PT/OT evaluation Risk factor modification and stroke education provided. DVT prophylaxis Start dispo planning Elizabeth Agosto MD Instructor Kindergarten Department of Neurology * Josr Higuera, [facility] - 10/23/2024 11:58 PM EDT Department of [...] further questions. Name: Josr Higuera RPH Phone: [phone] Date/Time: 10/23/2024 11:58 PM * ROSALINDA Lugo - 10/23/2024 3:34 PM EDT Placement Plan Expected Discharge Date: Referred Level of Care: SNF Barriers: Accepting facility, choice, medical readiness, IV antibiotics, transportation. Current Referrals and Status [facility]. [facility] - Available 11 Other SNFS: Sent Patient transferred to [facility] with SNF referral reserved. However, SNF informed [...] to look for alternative SNF. MISTY Mcdaniels, CONSUMER MARKETING SPECIALIST Maintenance Shop Technician Available by Secure Chat * Shweta Garcia OT - 10/23/2024 1:14 PM EDT Occupational Therapy Attempt Note 10/23/2024 OT Therapy Completed: Attempted Attempted Reason: Patient declined session. Promoted EOB/bed level mobility, adls and or there ex with continued decline I just don't feel like it today. Shweta Garcia OT I AM A FLOAT, [...] intake, Declines supplements, and has a wound. [facility] has notified RD via IHIST Chat about referral. RD to follow. Lani Mila is a 69 y.o. male admitted with [...] and/or swallowing Food Allergies reviewed:none Cultural or Shinto Restrictions/Preferences: none Pt reports unsure of any [...] CARB CONTROLLED Anthropometrics Height: 175.3 cm (5' 9) Admit wt: 359 lb IBW: 160 lb %IBW: 224% BMI: 53 UBW: 360 lb %UBW: 99.7% Wt Readings from Last 10 Encounters: 10/16/24 (!) 163 kg (359 lb 5.6 oz) Pt without significant weight changes Labs : low creatinine .56 Meds: Lasix, Senna, Miralax Aydin Byrd [facility] Power System Operator Student Cosigned by RAYMOND Thompson at [...] intake, Declines supplements, and has a wound. [facility] has notified RD via IHIST Chat [...] GFR >90 10/23/2024 HCT:LTO ICH with Left STEAM PRESS OPERATOR stroke CTA:mid/distal left posterior cerebral artery occlusion MRI: L STEAM PRESS OPERATOR stroke with ICH transformation ECHO: EF okay Neuro Exam: MS: Awake. Language: Intact speech and language. Mild dysarthria CN: 2-12 intact. RFD, Motor: 5/5 all over on left and RHP Assessment: Lani Zaragoza is a 69 y.o. 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 Strokefrom Afib Plan: AP and AC held currently. ASA in a week and AC in 2-3 weeks statin HTN: Aim normotension DM: Insulin RLE OM: Abx continue course per ID Continue statin PT/OT evaluation Risk factor modification and stroke education provided. DVT prophylaxis Start dispo planning Elizabeth Agosto MD Instructor Kindergarten Department of Neurology * Sohan Sawyer, DECAL CUTTER-AERIAL SURVEY TECHNICIAN - 10/23/2024 6:59 AM EDT Neurovascular Stroke Service Intracerebral Hemorrhage Note IDENTIFYING INFORMATION Lani Zaragoza MR# [id number] 10/23/2024 HISTORY OF PRESENT ILLNESS Lani Zaragoza [...] Intracerebral Hemorrhage Score Intracerebral Hemorrhage (ICH) Scale Leighton Coma Scale Points: 0-->GCS 13-15 Age>/=80: 0-->no [...] parenchymal hemorrhage, likely hemorrhagic transformation of recent STEAM PRESS OPERATOR territory infarct CTA brain/neck: Equivocal for left STEAM PRESS OPERATOR occlusion. No significant carotid or vertebral artery stenosis MRI brain w and w/o: Stable IPH/IVH. TTE: EF 60-65%; no PFO LDL 105, A1c 10.5 -Stroke Etiology (TOAST Criteria): Likely hemorrhagic transformation of recent R STEAM PRESS OPERATOR infarct which is likely cardioembolic in nature -Antiplatelet plan: not started due to acute hemorrhage -Statin therapy: Atorvastatin 40 mg daily -Blood Pressure goal: SBP <160 -Continue to hold Eliquis for now, plan to resume 3 weeks post-bleed Hemorrhagic Stroke Core Measures -TXISS on admission 16 -Patient has been started [...] for euvolemia now -Nocturnal BiPAP Sohan Sawyer, DECAL CUTTER-AERIAL SURVEY TECHNICIAN 10/23/2024 2:02 PM VITAL SIGNS Temp: [97 [...] 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 No progressive mass effect. Stable [...] Electronically Signed By: Annamarie Del Castillo M.D., [facility] on 10/18/2024 10:13 AM XR CHEST 1 [...] See above ANGIO BRAIN/NECK Final Result IMPRESSION: \ 1. Examination is equivocal for mid/distal left [...] discussed the critical finding/s of possible left STEAM PRESS OPERATOR occlusion with Kristen Ramon MD on 10/16/2024 8:57 PM. I personally viewed and interpreted these images and I have reviewed and approved this report. STROKE HEAD-STROKE ALERT ONLY Final Result IMPRESSION: 1. Acute left temporo-occipital parenchymal hemorrhage, likely hemorrhagic transformation of recent STEAM PRESS OPERATOR territory infarct. 2. Trace interventricular hemorrhage. 3. [...] ID Provider Dr Gregorio Trinidad (ofc # [phone]) Labs: Please have the [facility] or [facility] obtain the following labs and fax to [phone], attention Outside ID Provider Dr Trinidad - [...] discharged to a [facility] ([facility]), we will defer ID Care to the Infectious Disease Providers at the [facility] facility. Please instruct the facility that if the patient requires ID Follow-up after discharge, then they should call our office to arrange for an appointment. Central Access: Can Central Access be removed at the end of therapy: Yes Additional notes: Patient needs follow up scheduled with Dr Amos Soriano APRN-MICHAEL Cosigned by Sherrie Whalen MD at 10/22/2024 4:25 PM EDT * Elizabeth Agosot MD - 10/22/2024 1:32 PM EDT I [...] GFR >90 10/22/2024 HCT:LTO ICH with Left STEAM PRESS OPERATOR stroke CTA:mid/distal left posterior cerebral artery occlusion MRI: L STEAM PRESS OPERATOR stroke with ICH transformation ECHO: EF okay Neuro Exam: MS: Awake. Language: Intact speech and language. Mild dysarthria CN: 2-12 intact. RFD, VF ? Decreased on right Motor: 5/5 all over on left and RHP Assessment: Lani Zaragoza is a 69 y.o. 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 Strokefrom Afib Plan: AP and AC held currently. ASA in a week and AC in 2-3 weeks statin HTN: Aim normotension DM: Insulin RLE OM: Abx Continue statin PT/OT evaluation Risk factor modification and stroke education provided. DVT prophylaxis Elizabeth Agosto MD Instructor Kindergarten Department of Neurology * Ashley Soriano, DECAL CUTTER-AERIAL SURVEY TECHNICIAN - 10/22/2024 1:20 PM EDT Images from [...] (Oral) Resp 20 Ht 1.753 m (5' 9) Wt (!) 163 kg (359 lb 5.6 [...] Proteus penneri, Bacteroides spp., and Clostridium ramosum [facility] 10/17 Bcx- NGTD 10/18 MRSA/MSSA screen - negative Imaging: MRI BRAIN WITHOUT CONTRAST Final Result IMPRESSION: Grossly stable parenchymal hemorrhage with surrounding edema centered in the left temporooccipital region, which could 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 No progressive mass effect. Stable small volume of intraventricular extension of hemorrhage. FOOT RIGHT 3+ VIEWS Final Result IMPRESSION: Limited examination as above without acute osseous abnormality. Possible debridement site along the posterior superior calcaneal margin. SSMENT: Pt is a 69 y.o. male with PMH: of A-fib on Eliquis, DM (uncontrolled) and OM R calcaneous. He was being treated at OSH ([facility]) for a right heel wound with associated [...] acute hemorrhagic stroke that prompted transfer to [facility]. He has continued on IV david/vanc while here. Received update on OSH cultures of C albicans growth from previous OR cultures. He was started on IV micafungin on 10/18. I have reached out to his outside ID provider - Dr Gregorio Trinidad ([facility] # [phone]). They will continue to follow him after discharge to complete the antibiotic course. We will transition to oral fluconazole - and I updated Dr Trinidad's office of this. R calcaneal OM - s/p debridement ([facility]) MRSE bacteremia - ([facility]) Acute L ICH DM uncontrolled with neuropathy [...] ATTENDING: Dr Koby Soriano APRN, MS, Adult INSTRUCTIONAL TECHNOLOGY TEACHER-C Infectious Diseases Pager [phone] Cosigned by Sherrie Whalen MD at 10/22/2024 [...] abx as outlined by Dr. Santana at [place]. Sherrie Whalen MD [employer] Straightener of Clinical Medicine Division of Infectious Diseases Pager: [phone] * Rebecca Lantigua, PT - 10/22/2024 12:56 PM EDT Acute Physical Therapy Treatment Prior Gross Functional Mobility: independent Current AM-PAC score(s): CURRENT AM-PAC Mobility Raw Score: 7 Based on the above AM-PAC score(s) and PT clinical judgment, patient is a good candidate for discharge to [facility] Barriers to discharge home: Patient needs [...] posture Mobility Assessment/Intervention: Supine to Sit Mobility [place] Level: Supine->Sit: maximum assist (25% patient effort) Physical Assist: Supine->Sit: 2 person assist Bed Features/Set-up: Supine->Sit: Head of bed elevated, Use of bed rail Skilled Rationale: Positioning, Sequencing, Hand placement, Verbal cues Sit to Supine Mobility [place] Level: Sit->Supine: maximum assist (25% patient effort) Physical Assist: Sit->Supine: 2 person assist Bed Features/Set-up: Sit->Supine: Flat Transfer Assessment/Intervention: Gait/Functional Mobility Assessment/Intervention: Stairs Assessment/Intervention: Outcome Score(s): CURRENT [facility] Basic Mobility Inpatient Short Form Turning over in bed: 2 - A Lot of Assistance Moving from lying on back to sittin - Total Assistance Moving to and from bed to chair: 1 - Total Assistance Sitting/standing from chair: 1 - Total Assistance Walk in hospital room: 1 - Total Assistance Climbing 3-5 steps with a railin - Total Assistance CURRENT [facility] Mobility Raw Score: 7 CURRENT [facility] Mobility Functional Limitation: 92.36% Impaired in Basic [...] the current Physical Therapy Discharge Summary. * oShan Sawyer APRN-AERIAL SURVEY TECHNICIAN - 10/22/2024 11:57 AM EDT Neurovascular Stroke Service Intracerebral Hemorrhage Note IDENTIFYING INFORMATION Lani Zaragoza MR# [id number] 10/22/2024 HISTORY OF PRESENT ILLNESS Lani Zaragoza [...] diuresis for respiratory management 10/22: Tx to [facility] service PHYSICAL EXAM Gen: awake, alert, NAD [...] parenchymal hemorrhage, likely hemorrhagic transformation of recent STEAM PRESS OPERATOR territory infarct CTA brain/neck: Equivocal for left STEAM PRESS OPERATOR occlusion. No significant carotid or vertebral artery stenosis MRI brain w and w/o: Stable IPH/IVH. TTE: EF 60-65%; no PFO LDL 105, A1c 10.5 -Stroke Etiology (TOAST Criteria): Likely hemorrhagic transformation of recent R STEAM PRESS OPERATOR infarct which is likely cardioembolic in nature [...] for euvolemia now -Nocturnal BiPAP Sohan Sawyer APRN-AERIAL SURVEY TECHNICIAN 10/22/2024 12:10 PM VITAL SIGNS Temp: [96.6 [...] 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 No progressive mass effect. Stable [...] Electronically Signed By: Annamarie Del Castillo M.D., [facility] on 10/18/2024 10:13 AM XR CHEST 1 [...] See above ANGIO BRAIN/NECK Final Result IMPRESSION: \ 1. Examination is equivocal for mid/distal left [...] discussed the critical finding/s of possible left STEAM PRESS OPERATOR occlusion with Kristen Ramon MD on 10/16/2024 8:57 PM. I personally viewed and interpreted these images and I have reviewed and approved this report. STROKE HEAD-STROKE ALERT ONLY Final Result IMPRESSION: 1. Acute left temporo-occipital parenchymal hemorrhage, likely hemorrhagic transformation of recent STEAM PRESS OPERATOR territory infarct. 2. Trace interventricular hemorrhage. 3. [...] 10/22/2024 3:27 PM EDT * Sergei Atkins [facility] - 10/22/2024 11:23 AM EDT Department of [...] me with any further questions. Name: Sergei M IOANA Atkins Phone: [phone] Date/Time: 10/22/2024 11:23 AM * Rochelleolvin Rosa, DECAL CUTTER-AERIAL SURVEY TECHNICIAN - 10/22/2024 9:13 AM EDTSummary: Consult Sign Off Images from the original note were not included. [facility] Inpatient Diabetes Consults - Progress Note- For provider section plotter operator: QGENDA : TEAM 2 Assessment Uncontrolled type [...] to discharge for final recs. For provider section plotter operator, please use QGENDA : TEAM 2 Clinical Practice Guideline Inpatient Management of Diabetes Mellitus (DM): Non- Adults Plan Hospital Plan: Continue current regimen Basal: Glargine 28 units at 1200 Prandial: Insulin lispro 1 unit per 6 grams of carbs ACHS and PRN Correction: Insulin lispro 1 unit per 25 mg/dl greater than 150 mg/dl ACHS Education: following with cosmetology educator. Aware will need prandial insulin at [...] FixedvsFlexible: Fixed: U100 Lispro Pens with Pen [place] MAX DAILY DOSE 60 10 Units for Large Meal or 5 Units for Small Meal PLUS Correction Scale Subcutaneous every meal andat bedtime Correction Scale: (Copy and paste into Note to Pharmacy) Custom: 151-200 = 2 units 201-250 = [...] Auto-injector Follow up needed: Does not need [facility] Endocrinology appt PCP after discharge from facility CC: Hyperglycemia History of Present Illness: aLni Zaragoza is a 69 y.o. year old [...] GLUCOSE 138 10/22/2024 No results found for: CREATURINE, MICROALBUMIN, MICALBCREAT Lab Results Component Value Date ALT 13 10/16/2024 No results found for: PREALBUMIN Cardiac echo: EF = Results for orders [...] OT clinical judgment, discharge destination recommendation is: [facility] Facility Barriers to discharge home: Patient needs [...] to place (Pt reported current year as 2019.) Following Commands: Follows one step commands with increased time, Follows one step commands with repetition Safety Judgment: Decreased awareness of need for assistance, Decreased awareness of need for safety Awareness of Errors: Decreased awareness of errors Deficits: Decreased awareness of deficits Attention Span: Attends with cues to redirect, Difficulty attending to directions, Difficulty dividing attention Memory: Decreased terminal operator memory, Decreased short term memory Problem Solving: [...] bilateral UEs.) Mobility Assessment/Intervention: Scooting Bridging Mobility [place] Level: Scooting/Bridging: dependent (less than 25% patient effort) Physical Assist: Scooting/Bridgin person assist Bed Features/Set-up: Scooting/Bridging: Flat Supine to Sit Mobility [place] Level: Supine->Sit: maximum assist (25% patient effort) [...] limited by cognition/comprehension. Sit to Supine Mobility [place] Level: Sit->Supine: maximum assist (25% patient effort) [...] ASSESSMENT AND PLAN Neuro: (10/16/2024) 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 [...] Temperooccipital ICH likely hemorrhagic transformation of left STEAM PRESS OPERATOR stroke, ICH, mild mass effect - 10/17: [...] 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 No progressive mass effect. - [...] 12 O2 Sat (%): 97 % (10/22 629) O2 Device: Nocturnal CPAP/BIPAP (10/23 399) - Goal SpO2 >92%; wean FiO2 as tolerated - [id number], encourage pulmonary toileting - Duoneb Q6H PRN [...] No Current Issues No results for input(s): ALBUMIN, BILIDIRECT, BILITOTAL, ALKPHOS, ALT, AST, TP, AMYLASE, LIPASE in the last 72 hours. - DIET CARB CONTROLLED - [place]imas Swallow Screening Result: passed=cleared for oral intake [...] ID and Podiatry consulted - 10/18 [facility] Front End Ui Developer who did fixation Dr. Ramon Garcia DPM, [...] updated at bedside [x] Get lines out Bruce: Beard: inserted 10/17, (indication: diuresis, fluid goals), discontinue 10/21 Rectal tube: Enteral access: Central lines: Central Line LDAs Active Central Line Access Devices Name Placement date Placement time Site Days PICC Line - Single Lumen 10/16/24224910/16/242249 -- 5 Central Line Indications: Medication Requiring Central Venous Administration - terminal operator antibiotics Left PICC line from OSH If [...] the assigned neurocritical care provider (resident, fellow, INSTRUCTIONAL TECHNOLOGY TEACHER, orPA) or page/call the corresponding number below NCC1 (Beds 8416-0335): [place] # [phone], pager #[phone] NCC2 (Beds 7146-0695, [address], and overflow): [place] #: [phone], pager #[phone] Cosigned by Daniel Dominique MD at 10/22/2024 [...] therapeutic anticoagulation and antiplatelets - Atorvastatin - PT/OT/LEAD INVESTIGATOR evaluation - Continue gabapentin for peripheral neuropathy [...] 32min Daniel Dominique * Olivier Kaufman Jr., [facility] - 10/22/2024 12:56 AM EDT Department of [...] any further questions. Name: Olivier Kaufman Jr. [facility] Phone: [phone] Date/Time: 10/22/2024 12:56 AM * Sangita Valenzuela, [facility] - 10/21/2024 4:42 PM EDT Department of [...] further questions. Name: Sangita Valenzuela RPH Phone: [phone] Date/Time: 10/21/2024 4:42 PM * Germain Valle MD - 10/21/2024 10:02 AM EDT Images from the original note were not included. [facility] Inpatient Diabetes Consults - Progress Note- For provider section plotter operator: QGENDA : TEAM 2 Assessment Uncontrolled type [...] than 150 mg/dl ACHS Education: following with cosmetology educator. Aware will need insulin at discharge. [...] FixedvsFlexible: Fixed: U100 Lispro Pens with Pen [place] MAX DAILY DOSE 60 10 Units for Large Meal or 5 Units for Small Meal PLUS Correction Scale Subcutaneous every meal andat bedtime Correction Scale: (Copy and paste into Note to Pharmacy) Custom: 151-200 = 2 units 201-250 = [...] GLUCOSE 124 10/21/2024 No results found for: CREATURINE, MICROALBUMIN, MICALBCREAT Lab Results Component Value Date ALT 13 10/16/2024 No results found for: PREALBUMIN Cardiac echo: EF = Results for orders [...] assessment and plan as documented by the INSTRUCTIONAL TECHNOLOGY TEACHER with my changes/additions added. Patient is a [...] resp. rate 21, height 1.753 m (5' 9), weight (!) 163 kg (359 lb 5.6 [...] therapeutic anticoagulation and antiplatelets - Atorvastatin - PT/OT/LEAD INVESTIGATOR evaluation - Continue gabapentin for peripheral neuropathy [...] and other supportive care as per the INSTRUCTIONAL TECHNOLOGY TEACHER note from the same day This patient [...] MD Neurocritical Care Attending * Keara Castillo, JENNIFER-AERIAL SURVEY TECHNICIAN - 10/21/2024 7:42 AM EDT NEUROCRITICAL CARE [...] ASSESSMENT AND PLAN Neuro: (10/16/2024) 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 [...] Temperooccipital ICH likely hemorrhagic transformation of left STEAM PRESS OPERATOR stroke, ICH, mild mass effect - 10/17: [...] SpO2 >92%; wean FiO2 as tolerated - [id number], encourage pulmonary toileting - Duoneb Q6H PRN [...] No Current Issues No results for input(s): ALBUMIN, BILIDIRECT, BILITOTAL, ALKPHOS, ALT, AST, TP, AMYLASE, LIPASE in the last 72 hours. - DIET [...] consulted for osteomyelitis in E Recent Labs 10/20/24 0003 10/21/24 0000 WBC [...] ID and Podiatry consulted - 10/18 [facility] Front End Ui Developer who did fixation Dr. Ramon Garcia DPM, [...] updated at bedside [x] Get lines out Bruce: Beard: inserted 10/17, (indication: diuresis, fluid goals), discontinue 10/21 Rectal tube: Enteral access: Central lines: Central Line LDAs Active Central Line Access Devices Name Placement date Placement time Site Days PICC Line - Single Lumen 10/16/24224910/16/242249 -- 4 Central Line Indications: Medication Requiring Central Venous Administration - terminal operator antibiotics Left PICC line from OSH If [...] the assigned neurocritical care provider (resident, fellow, INSTRUCTIONAL TECHNOLOGY TEACHER, orPA) or page/call the corresponding number below NCC1 (Beds 3325-7707): [place] # [phone], pager #[phone] NCC2 (Beds 9938-9753, [facility], and overflow): [place] #: [phone], pager #[phone] * Maryann Douglas [facility] - 10/20/2024 12:19 PM EDT Department of [...] further questions. Name: Maryann Douglas RPH Phone: [phone] Date/Time: 10/20/2024 12:19 PM * Germain Valle MD - 10/20/2024 10:36 AM EDT Images from the original note were not included. [facility] Inpatient Diabetes Consults - Progress Note- For provider section plotter operator: QGENDA : TEAM 2 Assessment Uncontrolled type [...] than 150 mg/dl ACHS Education: following with cosmetology educator. Aware will need insulin at discharge. [...] FixedvsFlexible: Fixed: U100 Lispro Pens with Pen [place] MAX DAILY DOSE 60 10 Units for Large Meal or 5 Units for Small Meal PLUS Correction Scale Subcutaneous every meal andat bedtime Correction Scale: (Copy and paste into Note to Pharmacy) Custom: 151-200 = 2 units 201-250 = [...] GLUCOSE 136 10/20/2024 No results found for: CREATURINE, MICROALBUMIN, MICALBCREAT Lab Results Component Value Date ALT 13 10/16/2024 No results found for: PREALBUMIN Cardiac echo: EF = Results for orders [...] assessment and plan as documented by the INSTRUCTIONAL TECHNOLOGY TEACHER with my changes/additions added. Patient is a [...] resp. rate 19, height 1.753 m (5' 9), weight (!) 163 kg (359 lb 5.6 [...] therapeutic anticoagulation and antiplatelets - Atorvastatin - PT/OT/LEAD INVESTIGATOR evaluation - Continue gabapentin for peripheral neuropathy [...] and other supportive care as per the INSTRUCTIONAL TECHNOLOGY TEACHER note from the same day This patient [...] MD Neurocritical Care Attending * Keara Castillo, DECAL CUTTER-AERIAL SURVEY TECHNICIAN - 10/20/2024 7:13 AM EDT NEUROCRITICAL CARE [...] NEURO: Awake, oriented to name, place (answers hospital, unable to name hospital), month with choices, [...] ASSESSMENT AND PLAN Neuro: (10/16/2024) 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 - Afib: [...] No Current Issues No results for input(s): ALBUMIN, BILIDIRECT, BILITOTAL, ALKPHOS, ALT, AST, TP, AMYLASE, LIPASE in the last 72 hours. - DIET CARB CONTROLLED - [place] Swallow Screening Result: passed=cleared for oral intake [...] ID and Podiatry consulted - 10/18 [facility] Front End Ui Developer who did fixation Dr. Ramon Garcia DPM, [...] Indications: Medication Requiring Central Venous Administration - terminal operator antibiotics Left PICC line from OSH If [...] the assigned neurocritical care provider (resident, fellow, INSTRUCTIONAL TECHNOLOGY TEACHER, orPA) or page/call the corresponding number below NCC1 (Beds 7964-3199): [place] # [phone], pager #[phone] NCC2 (Beds 0929-7582, [address], and overflow): [place] #: [phone], pager #[phone] * Yahir Munguia [facility] - 10/19/2024 7:11 PM EDT Department of [...] further questions. Name: Yahir Munguia RPH Phone: [phone] Date/Time: 10/19/2024 7:11 PM * Amelia Patrick APRN-AERIAL SURVEY TECHNICIAN - 10/19/2024 1:35 PM EDT [facility] Inpatient Diabetes Consults - Progress Note- For provider section plotter operator: QGENDA : TEAM 2 Assessment Uncontrolled type [...] than 150 mg/dl ACHS Education: following with cosmetology educator. Aware will need insulin at discharge. [...] FixedvsFlexible: Fixed: U100 Lispro Pens with Pen [place] MAX DAILY DOSE 60 10 Units for Large Meal or 5 Units for Small Meal PLUS Correction Scale Subcutaneous every meal andat bedtime Correction Scale: (Copy and paste into Note to Pharmacy) Custom: 151-200 = 2 units 201-250 = [...] Number of Occurrences: 1 Current Regimen: Basal: [id number] units Q1500 Prandial: none NPO Enteral feeding: [...] GLUCOSE 138 10/19/2024 No results found for: CREATURINE, MICROALBUMIN, MICALBCREAT Lab Results Component Value Date ALT 13 10/16/2024 No results found for: PREALBUMIN Cardiac echo: EF = Results for orders [...] shunt with agitated saline. * Sangita Valenzuela [facility] - 10/19/2024 1:11 PM EDT Department of [...] any questions, Name: Sangita Valenzuela RPH Phone: [phone] Date/Time: 10/19/2024 1:12 PM * Dillan Guzman MD - 10/19/2024 10:41 AM EDT I have independently seen and examined the patient on 10/19/24. I agree with the history, examination, assessment and plan as documented by the INSTRUCTIONAL TECHNOLOGY TEACHER with my changes/additions added. Patient is a [...] resp. 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 [...] Temperooccipital ICH likely hemorrhagic transformation of left STEAM PRESS OPERATOR stroke, ICH, mild mass effect - 10/17: [...] 10 O2 Sat (%): 97 % (10/19 1010) O2 Device: nasal cannula (10/19 1010) Flow (L/min): 2 (05/02 1011) Oxygen Concentration (%): 40 (10/19 0841) pH/PCO2/PO2/HCO3: 7.40/62/75/38 (10/19 0810) - Goal SpO2 >92%; wean FiO2 as tolerated - MFZ2FNP, encourage pulmonary toileting - Duoneb Q6H PRN [...] TP 7.2 - DIET CARB CONTROLLED - Animas Swallow Screening Result: passed=cleared for oral intake - Monitor airway closely while still requiring intermittent BIPAP, okay for small snacks with supervision when BIPAP is off Bowel regimen: - Last Bowel Movement: (POLICY ISSUE CLERK) - Senna, miralax Stress ulcer prophylaxis: - not indicated Endo: DM Type 2 - Goal blood glucose 140-180 - 10/17 Endo consulted - Current regimen - Insulin glargine 28 U Q24H - Insulin SSI Q6H Recent Labs 10/16/24204410/16/248 10/18/24 1345 10/18/24 1745 10/18/24 2327 10/19/24 [...] ID and Podiatry consulted - 10/18 OSH Front End Ui Developer who did fixation Dr. Ramon Garcia DPM, [...] .Hypertension, Uncomplicated - Ischemic CVA, Location: Left STEAM PRESS OPERATOR - hemorrhagic transformation ICU Checklist: [x] Assess [...] Family Engagement Primary Emergency Contact[facility] Last updated: 10/19 family updated over the phone by MADHURI [x] Get lines out Bruce: inserted 10/16, (indication: hemodynamic monitoring, ABG draws) [...] notified (PICC) Discussed with NCCU Attending, Dr. Thomsa Jordan PA-C 10/19/24 10:32 AM Check the treatment team to find the assigned neurocritical care provider (resident, fellow, INSTRUCTIONAL TECHNOLOGY TEACHER, orPA) or page/call the corresponding number below [facility] (Beds 5780-1456): [place] # [phone], pager #[phone] NCC2 (Beds 8076-8974, [address], and overflow): [place] #: [phone], pager #[phone] * Rogelio Gan RCP - 10/19/2024 10:20 [...] duffy-white differentiation, predominantly localizing to the left STEAM PRESS OPERATOR territory. This is associated with overlying sulcal [...] clinical advancement; NCCU primary Please page [phone] ([phone]) with questions. Principal Problem: Ischemic cerebrovascular accident [...] unless otherwise specified. . * Yahir Munguia [facility] - 10/18/2024 6:11 PM EDT Department of [...] me with any further questions. Name: Yahir BondhenRAGHU biggsGricelda Phone: [phone] Date/Time: 10/18/2024 6:14 PM * ROSALINDA Kwong - 10/18/2024 2:35 PM EDT Care Management Progress Note Per medical team, anticipated that patient will require correction care at discharge. SNF and familynotified. Family [...] for any emerging needs. MISTY Mercer, ROSALINDA Maintenance Shop Technician Available by Secure Chat * Dillan Guzman MD - 10/18/2024 10:47 AM EDT I have independently seen and examined the patient on 10/18/24. I agree with the history, examination, assessment and plan as documented by the INSTRUCTIONAL TECHNOLOGY TEACHER with my changes/additions added. Patient is a [...] resp. rate 21, height 1.753 m (5' 9), weight (!) 163 kg (359 lb 5.6 [...] all anticoagulation and antiplatelets - Atorvastatin - PT/OT/LEAD INVESTIGATOR evaluation - Continue gabapentin for peripheral neuropathy [...] and other supportive care as per the INSTRUCTIONAL TECHNOLOGY TEACHER note from the same day This patient [...] - 10/18/2024 9:46 AM EDT Acute Care LEAD INVESTIGATOR Speech/Language/Cognitive Evaluation Best mode of Communication: spoken language (regular speech) Communication Strategies: -Provide repetitions as needed Discharge Recommendations: Based on the below outcome measures/assessment score(s) and LEAD INVESTIGATOR clinicaljudgment, discharge destination recommendation is: Half-Way Facility Barriers to discharge home: 1:1 assist needed for IADL's including medication management and finances Supporting factors for discharge setting: (Impaired language/reading skills for iADLs) Acute LEAD INVESTIGATOR Outcomes Tracking Communicate basic wants and needs?: [...] pt ability to read letters/words s/p L STEAM PRESS OPERATOR CVA, Ltemporal ICH. Pt reporting frustrations with anomia, and though able to eventually communicate wants/needs within evaluation, suspect delayed responses relating to reported word finding difficulties.Mild receptive deficits with higher level yes/no and command following. Limited assessment of reading/writing. Ongoing skilled LEAD INVESTIGATOR services indicated to address above deficits, maximize [...] (Rehab Status): Telemetry, Arterial line, Urinary catheter LEAD INVESTIGATOR Existing Precautions/Restrictions: NPO Patient History Comments: Lani Zaragoza is a 69 y.o. 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 Vocation: retired Residence: House (One-level home.) Lives With: alone Per LEAD INVESTIGATOR IADL History IADLs: independent Primary Language: Senegalese Home Management Skills: independent Medication Management: independent (with occasional use of pill box, admits to forgetting to take Eliquis) Homemaking Responsibilities: Yes Meal Prep Responsibility: (States he does not cook but eats out) Bill Paying/Finance Responsibility: Primary (states writing x1 check for rent, rest of billing online) IADL Comments: Pt reports managing own medications, etc. and relying on eating out for meals/food. Pt denies receiving assistance for any IADL engagement. LEAD INVESTIGATOR Existing Precautions/Restrictions: NPO Respiratory Status: O2 Sat [...] 0 Asthenia (A): 1 Strain (S): 0 LEAD INVESTIGATOR Outcomes: The [place] Aphasia Screening Test (MAST) was developed as a brief, repeatable screening measure for individuals with impaired communication/language skills. The MAST was designed to be used for serial assessments to detect changes in language abilities over time. Patient scored the following on the 8/9 subtests: Expressive Index Naming Expressive Index: 8 Automatic Speech Expressive Index: 10 Repetition Expressive Index: 03/29 Writing Expressive Index: 0 (NA- UE weakness)/10 Verbal Fluency Expressive Index: 03/29 (Based on Cookie Theft Picture) Receptive Index Yes/No Accuracy Receptive Index: 1820 Object Recognition Receptive Index: 10 Following Instructions Receptive Index: 8 Reading Instructions Receptive Language Index: 0/10 Expressive Index Subscale: 38/40 Receptive Index Subscale: 36/50 Total Index Score: 74/90 Acute LEAD INVESTIGATOR Goals Plan of Care by Santa Kuo LEAD INVESTIGATOR at 10/18/2024 9:47 AM Version 1 of 1 Problem: LEAD INVESTIGATOR - Cognition Goal: Metacognition - Patient will identify at least x2-3 deficits related to medical condition andhow deficits will impact ability to return home with fading cues to improve safety and independence Outcome: Ongoing Problem: LEAD INVESTIGATOR - Language Goal: Word Retrieval Strategies for [...] EVETTE Spann Time In: 945 Time Out: 101 Total Visit Time: 26 minutes Total Treatment Time (skilled, billable minutes): 26 minutes Non-billable assistance during session: NA Assisted by during session: NA PPE used during patient interaction: gloves Patient location/status at end of session: bed with head of bed elevated Patient alarms at end of session: none altered Needs in reach. LEAD INVESTIGATOR Evaluation and Treatment Time Speech Eval - Sound Production W/Lang Comp and Exp 67557: 26 Upon discontinuation of Acute Care Speech Therapy Services or patient discharge from the hospital this note represents the current Speech Therapy Discharge Summary * Amelia Patrick APRN-AERIAL SURVEY TECHNICIAN - 10/18/2024 9:05 AM EDT [facility] Inpatient Diabetes Consults - Progress Note- For provider section plotter operator: QGENDA : TEAM 2 Assessment Uncontrolled type [...] FixedvsFlexible: Fixed: U100 Lispro Pens with Pen [place] MAX DAILY DOSE 60 tbd Units for Large Meal or tbd Units for Small Meal PLUS Correction Scale Subcutaneous every meal and at bedtime Correction Scale: (Copy and paste into Note to Pharmacy) Custom: 151-200 = 2 units 201-250 = [...] NPO Meds:: with meds Current Regimen: Basal: [id number] units Q1500 Prandial: none NPO Enteral feeding: [...] 212 (H) 10/18/2024 No results found for: CREATURINE, MICROALBUMIN, MICALBCREAT Lab Results Component Value Date ALT 13 10/16/2024 No results found for: PREALBUMIN Cardiac echo: EF = Results for orders [...] Hemorrhage Note IDENTIFYING INFORMATION Lani Zaragoza MR# [id number] 10/18/2024 HISTORY OF PRESENT ILLNESS Lani Zaragoza [...] parenchymal hemorrhage, likely hemorrhagic transformation of recent STEAM PRESS OPERATOR territory infarct CTA brain/neck: Equivocal for left STEAM PRESS OPERATOR occlusion. No significant carotid or vertebral artery stenosis MRI brain w and w/o: Pending TTE: Pending LDL 105, A1c 10.5 -Stroke Etiology (TOAST Criteria): MRI pending but has A fib -Antiplatelet plan: not started due to acute hemorrhage -Statin therapy: Atorvastatin 40 mg daily -Blood Pressure goal: SBP <160 -Continue to hold Eliquis for now Hemorrhagic Stroke Core Measures -TXISS on admission 16 -Patient has been started [...] vancomycin 1,250 mg Intravenous Q12HNS * Shweta Garcia, OT - 10/18/2024 8:02 AM EDT Occupational Therapy Attempt Note 10/18/2024 OT Therapy Completed: Attempted Attempted Reason: Patient is not medically optimized to tolerate therapy program Shweta Garcia OT I AM A FLOAT, PLEASE PAGE YOUR FLOORS OT REGARDING THIS PATIENT Time In: 801 Time Out: 801 Total Visit Time: 0 minutes Total Treatment [...] ASSESSMENT AND PLAN Neuro: (10/16/2024) 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 [...] Temperooccipital ICH likely hemorrhagic transformation of left STEAM PRESS OPERATOR stroke, ICH, mild mass effect - 10/17: [...] SpO2 >92%; wean FiO2 as tolerated - QTI3EGP, encourage pulmonary toileting - Duoneb Q6H PRN [...] (IDDSI 6) Liquid Thin (IDDSI 0) - Del Swallow Screening Result: passed=cleared for oral intake - Monitor airway closely while still requiring intermittent BIPAP, okay for small snacks with supervision when BIPAP is off Bowel regimen: - Last Bowel Movement: (POLICY ISSUE CLERK) - Senna, miralax Stress ulcer prophylaxis: - [...] ID and Podiatry consulted - 10/18 OSH Front End Ui Developer who did fixation Dr. Ramon Garcia DPM, [...] .Hypertension, Uncomplicated - Ischemic CVA, Location: Left STEAM PRESS OPERATOR - hemorrhagic transformation ICU Checklist: [x] Assess [...] the assigned neurocritical care provider (resident, fellow, INSTRUCTIONAL TECHNOLOGY TEACHER, orPA) or page/call the corresponding number below [facility] (Beds 8746-4086): [place] # [phone], pager #[phone] NCC2 (Beds 1144-9870, [address], and overflow): [place] #: [phone], pager #[phone] * Tony Deleon MD - 10/18/2024 6:17 [...] nasal cannula (10/19 419) Flow (L/min): 4 (10/18 0420) Oxygen Concentration (%): 40 (10/18 0400) I/O last 3 completed shifts: In: 3334.8 [I.V.:2384.3; IV Piggyback:950.5] Out: 2435 [Urine:2435] ICP: No data recorded WBC/Hgb/Hct/Plts: 9.62/11.2/34.5/259 (10/18 21) Na/K+/Phos/Mg/Ca: 143/3.9/3.4/2.0/-- (10/18 21-10/18 410) Bun/Creat/Cl/CO2/Glucose: 12/0.52/103/29/212 (10/18 21-10/18 537) Imaging: moderate multifocal left temporo-occipital parenchymal hemorrhage. Associated white matter hypoattenuation, with multifocal loss of duffy-white differentiation, predominantly localizing to the left STEAM PRESS OPERATOR territory. This is associated with overlying sulcal [...] clinical advancement; NCCU primary Please page [phone] ([phone]) with questions. 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 [...] Temperooccipital ICH likely hemorrhagic transformation of left STEAM PRESS OPERATOR stroke, ICH, mild mass effect - 10/17: [...] SpO2 >92%; wean FiO2 as tolerated - AQC7THT, encourage pulmonary toileting - Duoneb Q6H PRN [...] electrolytes replaced per NCCU protocol Recent Labs 10/16/24204410/16/24225710/17/24 1144 10/17/24 1306 10/17/24 1725 SODIUM 136 136 < > 138 140 POTASSIUM 3.8 3.8 -- 4.3 -- CHLORIDE 99 97* -- 100 -- CO2 29 29 -- 27 -- BUN 9 9 -- 12 -- [...] 7.2 - DIET NPO with meds - LetMeGo Swallow Screening Result: passed=cleared for oral intake - Keeping NPO for airway watch, on BIPAP, re-evaluate on 10/18/24 Bowel regimen: - Last Bowel Movement: (POLICY ISSUE CLERK) - Senna, miralax Stress ulcer prophylaxis: - [...] Heme/Onc: Anemia of Chronic Disease Recent Labs 10/16/24204410/16/248 WBC 13.39* 12.56* RBC 4.75 4.65 HGB 12.6* 12.6* HCT 37.5* 37.0* PLATELET 307 272 PT 14.5* -- PTT 33.6 -- INR 1.1 -- - Goal plt >100, INR <1.4, Hgb >7 DVT prophylaxis: - SCd, pharmacological prophylaxis after follow up CT - No Eliquis for at least 14 days from [facility] [place]: E chronic wound - PT/OT consulted and following [...] .Hypertension, Uncomplicated - Ischemic CVA, Location: Left STEAM PRESS OPERATOR - hemorrhagic transformation ICU Checklist: [x] Assess [...] Family Engagement Primary Emergency Contact: Norma Rosas ([facility]) Last updated: 10/17 family updated at bedside [...] the assigned neurocritical care provider (resident, fellow, INSTRUCTIONAL TECHNOLOGY TEACHER, orPA) or page/call the corresponding number below [facility] (Beds 6460-7240): [place] # [phone], pager #[phone] NCC2 (Beds 2213-5425, [address], and overflow): [place] #: [phone], pager #[phone] * ROSALINDA Kwong - 10/17/2024 3:44 PM EDT Reason for Consult: Discharge Planning Consulted By: Medical Team Level(s) of Care Discussed: SNF Patient and/or Allergy And Immunology Specialist's Preferred Geographic Area for Discharge: [address] Patient and/or Allergy And Immunology Specialist's Preference for Providers to Include? [facility] Patient and/or Allergy And Immunology Specialist's Preference for Providers to Exclude? N/A Patient and/or Allergy And Immunology Specialist's Discussion: Discussed referral process with the patient's son/1st alt HCPOA Rogelio ([phone]). Who confirmedpatient was reserved with SNF [facility] at OSH. Rogelio is agreeable to have a placement referral initiated to [facility]. MISTY Mercer LSW Maintenance Shop Technician Available by Secure Chat * ROSALINDA Kwong - 10/17/2024 3:36 PM EDT Discharge Planning Assessment Is the patient able to participate in the assessment?: No Explanation of why patient is unable to participate: AMS Care Management Plan IA completed with patient's son Rogelio at bedside. Patient with AMS. Anticipated discharge dispo to SNF - referral sent in added to [facility] in [place], [place]. Patient was reserved at [facility] [...] documentation on file. Patient's sister Norma Warren ([phone]) is listed as HCPOA and patient's son Rogelio Zaragoza ([phone]) is listed as 1st alternate HCPOA. Initial Discharge Planning Expected Discharge Disposition: Half-Way Facility Transportation Available for Discharge: Ambulance Anticipated DME: unknown at this time Anticipated Services at Discharge: Occupational Therapy, Physical Therapy, Outpatient follow up, Speech Therapy, Half-Way Patient Assessment Completed: Initial Legal Next of Kin Does the patient have a Guardian?: No Spouse: No Adult Child(rory), List All Adult Children: Yes Name and Contact information: Rogelio Zaragoza ([phone]) Would you like to add additional adult children?: No Parent(s) - List All Living Parents: No Adult Sibling(s), List All Adult Siblings: Yes Name and Contact information: Norma Warren ([phone]) Would you like to add additional adult [...] Is the patient on Anticoagulation? : Yes [employer] [address] [place] [address] [address] [facility] [address] [facility] [address] Living Environment and Support System Is the patient from a facility or chcf?: No Living Environment: House Patient Caregiving Responsibilities: [...] care for themselves at home? : Yes Plant Health Manager Does the patient or event sales representative express financial concerns? : No MISTY Mercer LSW Maintenance Shop Technician Available by Secure Chat * Sangita Valenzuela [facility] - 10/17/2024 2:24 PM EDT Department of Pharmacy Admission Medication Reconciliation Note Patient: Lani Zaragoza Room/Bed: 1040/A I have reviewed the patient's home medication list with the following sources Patient's family member/caregiver (Son, sister) and Pharmacy (Name [facility] ). The home medication list status is: in-progress. This medication list has been updated based on pharam records carroll - patient's son and sister unable to confirm all home medications and medications allergies - please confirm with the patient when able. All changes to the home medication list have been updated inIHIS. Updated POLICY ISSUE CLERK Med List: Prior to Admission Medications Prescriptions [...] the exact reaction but reports that it was pretty severe. Patient's son unsure of any medication allergies. [facility] does not have any allergies on file for the patient and notably the patient has filled Augmentin twice in the past month (09/12/24 and 10/14/24) Eliquis last filled 06/19/25 for a 30 day supply - unclear if patient still taking Please feel free to contact me with any further questions. Name: Sangita Valenzuela RPH Phone #: [phone] Date/Time: 10/17/2024 2:24 PM Time Spent: 20 minutes * EVETTE Spann - 10/17/2024 1:10 PM EDT Speech Language Pathology Attempt Note 10/17/2024 LEAD INVESTIGATOR Therapy Completed: Attempted speech/lang/cog Attempted Reason: Patient is not medically optimized to tolerate therapy program (requiring BiPap) Received consult for swallow evaluation. However, patient passed Animas Swallow Screening by nursing.Per conversation with medical team, currently holding PO diet pending improved respiratory status. Goal for diet initiation following stable respiratory status. Swallow eval by LEAD INVESTIGATOR will not be completed at this time unless this service notified of change in status or re-consult for swallow eval placed. No charge Santa Kuo MA, [facility]-LEAD INVESTIGATOR Pager: [phone] License: [email or web address] Email: [email or web address] Time In: 1310 Time Out: 1310 Total Visit Time: 0 minutes Total Treatment Time (skilled, billable minutes): 0 minutes * AHSAN Chavez - 10/17/2024 11:55 AM EDT Neurovascular Stroke Service Intracerebral Hemorrhage Note IDENTIFYING INFORMATION Lani Zaragoza MR# [id number] 10/17/2024 HISTORY OF PRESENT ILLNESS Lani Zaragoza [...] parenchymal hemorrhage, likely hemorrhagic transformation of recent STEAM PRESS OPERATOR territory infarct CTA brain/neck: Equivocal for left STEAM PRESS OPERATOR occlusion. No significant carotid or vertebral artery stenosis MRI brain w and w/o: Pending TTE: Pending LDL 105, A1c 10.5 -Stroke Etiology (TOAST Criteria): Work up pending -Antiplatelet plan: not started due to acute hemorrhage -Statin therapy: Will need to start if found to have acute ischemic stroke -Blood Pressure goal: SBP <140 -Continue to hold Eliquis for now Hemorrhagic Stroke Core Measures -TXISS on admission 16 -Patient has been started [...] PT/OT/Speech and PM&R if indicated. AHSAN Chavez 10/17/2024 12:50 PM VITAL SIGNS Temp: [97.3 [...] the following highlights, additions, and addendums: Mr. Zraagoza is a 69M w/ A fib on [...] assessment and plan as documented by the INSTRUCTIONAL TECHNOLOGY TEACHER with my changes/additions added. Patient is a [...] rate (!) 27, height 1.753 m (5' 9), weight (!) 163 kg (359 lb 5.6 [...] all anticoagulation and antiplatelets - Atorvastatin - PT/OT/LEAD INVESTIGATOR evaluation - Continue home gabapentin for peripheral [...] and other supportive care as per the INSTRUCTIONAL TECHNOLOGY TEACHER note from the same day This patient [...] MD Neurocritical Care Attending * Sangita Valenzuela [facility] - 10/17/2024 10:35 AM EDT Department of Pharmacy Antimicrobial Stewardship Documentation Note Patient: Lani Zaragoza Room/Bed: 1040/A Restricted Antimicrobial Approval - [place] Worker Information about restricted antimicrobials at [facility] can be found here: Restricted Antimicrobial Guide. [...] with any further questions. Name: Sangita Valenzuela [facility] Phone: [phone] Date/Time: 10/17/2024 10:36 AM * EVETTE Spann - 10/17/2024 8:01 AM EDT Speech Language Pathology Attempt Note 10/17/2024 Swallow POC Attempted Reason: Other (see comments) (pt passed del swallow screen, pending on clarification from medical team if formal swallow evaluation with LEAD INVESTIGATOR warranted.) EVETTE Spann Time In: 800 Time Out: 800 Total Visit Time: 0 minutes Total Treatment Time (skilled, billable minutes): 0 minutes * Yahaira Alcocer OT - 10/17/2024 7:57 AM EDT Acute Occupational Therapy Evaluation Prior Gross Functional Mobility: independent Current AM-PAC score(s): CURRENT AM-PAC Activity Raw Score: 12 Based on the above AM-PAC score(s) and OT clinical judgment, discharge destination recommendation is: Half-Way Facility Barriers to discharge home: Lack of [...] mobilizing in community; 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 Vocation: retired IADL History IADLs: other (see comments) IADL Comments: Pt reports managing own medications, etc. and relying on eating out for meals/food. Pt denies receiving assistance for [...] person (Pt reported the current month as 1st or 2nd when questioning and unable to report current [...] to directions, Difficulty dividing attention Memory: Decreased terminal operator memory, Decreased short term memory Problem Solving: [...] LEs (right>left).) Mobility Assessment: Scooting Bridging Mobility [place] Level: Scooting/Bridging: dependent (less than 25% patient effort) Physical Assist: Scooting/Bridgin person assist Bed Features/Set-up: Scooting/Bridging: Flat Supine to Sit Mobility [place] Level: Supine->Sit: maximum assist (25% patient effort) [...] limited by cognition/comprehension. Sit to Supine Mobility [place] Level: Sit->Supine: maximum assist (25% patient effort) Physical Assist: Sit->Supine: 2 person assist Bed Features/Set-up: Sit->Supine: Flat, Use of bed rail Skilled Rationale: Cues for increased safety, Initiation and execution of task, Technique of activity, Tactile cues, Verbal cues, Hand placement, Sequencing, Positioning Skilled Intervention/Details: Sit->Supine: Cues for initiation/sequencing/safety, as well as assisting with upper trunk support and LEs. Outcome Score(s): [facility]RENT [facility] Daily Activity Inpatient Short Form Putting on/Taking Off Lower Body Clothin - Total Assistance Bathin - A Lot of Assistance Toiletin - Total Assistance Putting on/Taking Off Upper Body Clothin - A Lot of Assistance Groomin - A Little Assistance Eatin - A Little Assistance CURRENT [facility] Activity Raw Score: 12 CURRENT [facility] Activity Functional Limitation/Modifier: 66.57% Currently Impaired in Daily Activity- CL Assessment & Plan: Patient was admitted for debridement of right diabetic foot ulcer and presenting with change in mental status and found to have a left STEAM PRESS OPERATOR CVA and left temporal IPH and seen [...] (comprehensive assessments w/multiple treatment options) Time In: 0757 Time Out: 0813 Total Visit Time: 16 minutes Total Treatment [...] is a good candidate for discharge to [facility] Barriers to discharge home: Patient needs [...] mobilizing in community; 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 Vocation: retired Objective/Observation: Vitals/Vitals Responses to Treatment: no adverse response to PT Cognition Overall Cognitive Status: Impaired Arousal/Alertness: Delayed responses to stimuli Orientation Level: Oriented to person (identified month with choices but initially reported 1st or2nd when asked month.) Following Commands: Follows one [...] 2-3/5 Mobility Assessment: Supine to Sit Mobility [place] Level: Supine->Sit: maximum assist (25% patient effort) Physical Assist: Supine->Sit: 2 person assist Bed Features/Set-up: Supine->Sit: Head of bed elevated Skilled Rationale: Verbal cues, Tactile cues, Hand placement, Technique of activity Sit to Supine Mobility [place] Level: Sit->Supine: maximum assist (25% patient effort) [...] Intervention/Details: retropulsive in sitting Outcome Score(s): CURRENT [facility] Basic Mobility Inpatient Short Form Turning over in bed: 1 - Total Assistance Moving from lying on back to sittin - Total Assistance Moving to and from bed to chair: 1 - Total Assistance Sitting/standing from chair: 1 - Total Assistance Walk in hospital room: 1 - Total Assistance Climbing 3-5 steps with a railin - Total Assistance CURRENT [facility] Mobility Raw Score: 6 CURRENT [facility] Mobility Functional Limitation: 100.00% Impaired in Basic Mobility Assessment & Plan: Patient was admitted for Acute Left STEAM PRESS OPERATOR CVA (per chart review) and seen for therapy [...] PT Goals Plan of Care by Isabel Otto, PT at 10/17/2024 3:20 PM Version 1 [...] (10/16 2257) Na/K+/Phos/Mg/Ca: 136/3.8/3.0/1.6/-- (10/16 2257) Bun/Creat/Cl/CO2/Glucose: 9/0.50/97//223 (10/16 2257) Ptt/Pt/Inr: 33.6/14.5/1.1 (10/16 2044) Imaging: moderate multifocal left temporo-occipital parenchymal hemorrhage. Associated white matter hypoattenuation, with multifocal loss of duffy-white differentiation, predominantly localizing to the left STEAM PRESS OPERATOR territory. This is associated with overlying sulcal [...] clinical advancement; NCCU primary Please page [phone] ([phone]) with questions. Principal Problem: Ischemic cerebrovascular accident (CVA) Active Problems: ICH (intracerebral hemorrhage) Present on Admission: Ischemic cerebrovascular accident (CVA) ICH (intracerebral hemorrhage) Complexity. Obesity, Class III Body mass index is 53.07 kg/m . - Follow with PCP for dietary and lifestyle modifications. Wound Documentation Any conditions listed below are present on admission unless otherwise specified. . * Lawrence Ro [facility] - 10/17/2024 5:09 AM EDT Department of [...] clinically appropriate. I have contacted Olivier Kaufman [facility] and received a verbal order to adjust [...] further questions. Name: Lawrence Ro RPH Phone: [phone] Date/Time: 10/17/2024 5:09 AM * Eboni Jackson [facility] - 10/16/2024 8:53 PM EDT Department of Pharmacy Emergency Department Stroke Alert Response Note Patient Name: Lani Zaragoza Room/Bed: E040/E040 A Pharmacist responded to the stroke alert. The patient was determined to be having a hemorrhagic stroke. The IHIS order set ED: Confirmed Stroke/ICH - Secondary was placed by Dr. Denson for ongoing [...] with any further questions. Name: Eboni Jackson [facility] Phone: [phone] Date/Time: 10/16/2024 8:53 PM * Eboni Jackson [facility] - 10/16/2024 8:50 PM EDT Department of Pharmacy Outside Facility Transfer Note Patient: Lani Zaragoza Room/Bed: E040/E040 Patient has transferred from the Emergency Department at [place] . I have contacted the facility and confirmed the following antimicrobial, antiepileptic, and anticoagulant medications were received by the patient prior to arrival at [facility]: Medications received: Both antibiotics initiated on 10/09 [...] with any further questions. Name: Eboni Jackson Gricelda Phone #: [phone] Date/Time: 10/16/2024 8:50 PM documented [facility] this [facility] Consult note* Jacqueline Wiggins RN - [...] Resources: Link to diabetes education book in Senegalese: DiabetesEducation.pdf Link to diabetes education book in Cypriot: DiabetesEducation_SP.pdf Diabetes videos: https://www.healthwise.net/osumychart/Content/StdDocument.aspx?ROUPZTN=fhxeex384 0 Link to order the diabetes education books (you would login and select your location, select the disease, diabetes and then you will see the option to order the book): https://apps.[facility]/clinical/ pteducordering/Identity/Account/Login?ReturnUrl=/clinical/pteducordering Education Reviewed: [x]Regimen at discharge [x]Self-insulin [...] additional concerns arise. Thank you, Jacqueline Wiggins [employer]-[facility] Entrepreneur- Endocrinology, Diabetes & Metabolism * Jacqueline Wiggins [...] Resources: Link to diabetes education book in Senegalese: DiabetesEducation.pdf Link to diabetes education book in Cypriot: DiabetesEducation_SP.pdf Diabetes videos: https://www.[employer].net/osumychart/Content/StdDocument.aspx?SAUYGUA= 0 Link to order the diabetes education books (you would login and select your location, select the disease, diabetes and then you will see the option to order the book): https://apps.[facility]/clinical/ pteducordering/Identity/Account/Login?ReturnUrl=/clinical/pteducordering DM History: Type of Diabetes: Type [...] assess and treat hyperglycemia [x]Sick day rules http://www.innovativetherapeutics.org/wp-content/uploads//VDHC-XTO-Zkws-I nnovative-Therapeutics.pdf [x]Who to contact in an emergency [...] DM self-management education Thank you, Jacqueline Wiggins [employer] Entrepreneur- Endocrinology, Diabetes & Metabolism * Annika Sanders [...] rememberthe exact reaction but reports that it was pretty severe. Patient's son unsure of any medication allergies. [employer] [facility] does not have any allergies on file [...] 12/0.46/100/27/252 (10/17 130) Na/K+/Phos/Mg/Ca: 138/4.3/3.0/1.6/-- (10/16 2257-10/17 1305) No results found for: SEDRATE No results found for: CRP Lab Results Component Value Date HGBA1C 10.5 [...] See above ANGIO BRAIN/NECK Final Result IMPRESSION: \ 1. Examination is equivocal for mid/distal left [...] discussed the critical finding/s of possible left STEAM PRESS OPERATOR occlusion with Kristen Ramon MD on 10/16/2024 8:57 PM. I personally viewed and interpreted these images and I have reviewed and approved this report. STROKE HEAD-STROKE ALERT ONLY Final Result IMPRESSION: 1. Acute left temporo-occipital parenchymal hemorrhage, likely hemorrhagic transformation of recent STEAM PRESS OPERATOR territory infarct. 2. Trace interventricular hemorrhage. 3. [...] this consult, please page the podiatry resident section plotter operator with questions. Cosigned by Nakul Escoto DPM at 10/17/2024 6:22 PM EDT * Toni Greene, DO - 10/17/2024 3:16 PM EDTAssociated Order(s): IP CONSULT TO INFECTIOUS DISEASE INFECTIOUS DISEASE CONSULTATION REQUESTING PHYSICIAN: Dillan Guzman MD REASON FOR CONSULTATION: follow-up with giorgio from previous hospital CC: HISTORY OF PRESENT ILLNESS: Pt is a 69 y.o. male with PMHx of A-fib on Eliquis and DM (uncontrolled), was being treated an an OSH ([facility]) for a right heel wound infection with [...] rememberthe exact reaction but reports that it was pretty severe. Patient's son unsure of any medication allergies. [employer] does not have any allergies on file [...] (Axillary) Resp 19 Ht 1.753 m (5' 9) Wt (!) 163 kg (359 lb 5.6 [...] parenchymal hemorrhage, likely hemorrhagic transformation of recent STEAM PRESS OPERATOR territory infarct. 2. Trace interventricular hemorrhage. 3. [...] 8 hours at this time (ASP Code: QS8665) Please have pharmacy help with dosing of above antibiotics. These recommendations were also relayed to the primary team. ID Team 5 will continue to follow. Please call with questions. 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 [facility] No LUCÍA or CKD hx, baseline Cr [...] being seen for diabetes management [facility] Service, Dr Guzman for Type 2 [...] (Axillary) Resp 19 Ht 1.753 m (5' 9) Wt (!) 163 kg (359 lb 5.6 [...] 1.30 mg/dL Final No results found for: MICROALBUMIN, MICROALBUPOC Lab Results Component Value Date ALT 13 10/16/2024 AST 14 10/16/2024 No results found for: TSH, Z2IXUNQ, T4FREE Cardiac echo: EF = Results for orders [...] NEURO Neurosurgery Consult Note Reason for Consultation: c/f hemorrhagic stroke vs mass L temporal [...] braced SILT Labs No results for input(s): PT, INR in the last 72 hours. Imaging: CT [...] no apparent neglect Speech/language: will intermittently state I'm going to , otherwise does not answer questions Cranial nerves: [...] 2044) Lipid panel: No results found for: CHOLESTEROL, TRIG, HDL, LDLCALC, LDLDIRECT HA1C: No results found for: HGBA1C Imaging - 10/16/2024 CT Head: L temporal [...] demonstrating L temporal ICH, possibly conversion of STEAM PRESS OPERATOR infarct. NSGY consulted. Pt will be admitted to NCCU for close monitoring. Plan L Temporal ICH, possible hemorrhagic conversion of STEAM PRESS OPERATOR infarct -Please admit to Neurocritical care (NCC), [...] ED. Continuous telemetry -PT, OT, Speech and medical social consultant consults Staff: Dr. Mateo Moore, neurovascular fellow [...] Israel Schreiber MD documented [facility] encounter[facility] Procedure note* AHSAN Junior - 10/16/2024 11:00 PM EDTAssociated Order(s): *ARTERIAL LINE Post-Procedure Diagnose(s): Nontraumatic cortical hemorrhage of left cerebral hemisphere *ARTERIAL LINE Procedure Date:: 10/17/2024 Start Time:: 23:00 EDT Performed by: AHSAN Junior Authorized by: AHSAN Junior Staff: Name of Excellence Consultant: Yahaira Ohara RN Consent Verbal consent obtained The procedure was performed in an emergent situation Consent given by: patient Risks and benefits were discussed. Risks discussed: arterial occlusion, arterial puncture, bleeding, limb ischemia and pseudoaneurysm Alternatives discussed: alternative treatment Indications Indications: hemodynamic monitoring [place] Protocol Patient does not state understanding of [...] the procedure myself documented in this encounterOS[facility] Emergency department Note* Chiquita Rodriguez RN [...] 1-2 Tube 1-2 Tube Oral As directed PRKaylee Grier APRN-AERIAL SURVEY TECHNICIAN fentaNYL Citrate (PF) (SUBLIMAZE) injection hydrALAZINE (APRESOLINE) injection 10 mg 10 mg Intravenous Q1H PRN Francie Grier DECAL CUTTER-AERIAL SURVEY TECHNICIAN Or hydrALAZINE (APRESOLINE) injection 20 mg 20 mg Intravenous Q1H PRN Francie Grier DECAL CUTTER-AERIAL SURVEY TECHNICIAN Labetalol (NORMODYNE) injection 10 mg 10 mg Intravenous Q1H PRN Francie Grier DECAL CUTTER-AERIAL SURVEY TECHNICIAN 10 mg at10/16/24 2359 Or Labetalol (NORMODYNE) injection 20 mg 20 mg Intravenous Q1H PRN Francie Grier DECAL CUTTER-MICHAEL Magnesium sulfate 4 g in sterile water 50 ml premix IVPB 4 g Intravenous As directed PRN Francie Grier APRN-MICHAEL Meropenem (MERREM) 1 g in sodium chloride 0.9% (MB PLUS) 100 mL (total volume) IVPB 1 g [id number] Miriam Denson MD 33.3 mL/hr at 10/16/24 2322 Rate Verify at 10/16/24 2322 Metoprolol (LOPRESSOR) tablet 25 mg 25 mg Oral Q12H Francie Grier APRN-AERIAL SURVEY TECHNICIAN 25 mg at 10/16/24 2358 niCARdipine in sodium chloride (CARDENE) 40 mg-0.83/200 ml premix IV infusion 0- 15 mg/hr Intravenous Continuous Kevin Soriano MD 62.5 mL/hr at 10/16/24 2322 12.5 mg/hr at 10/16/24 2322 Potassium chloride 20 mEq in sterile water 50 ml premix IVPB 20 mEq Intravenous As directed PRN Francie Grier APRN-AERIAL SURVEY TECHNICIAN Or Potassium chloride (K-DUR) tablet ER 40-80 mEq 40-80 mEq Oral As directed PRKaylee Grier APRN-AERIAL SURVEY TECHNICIAN Or Potassium Bicarb-Citric Acid (Effer-K) 20 MEQ effervescent tablets for oral solution 40-80 mEq 40-80 mEq Per NG tube As directed PRN Francie Grier DECAL CUTTER-AERIAL SURVEY TECHNICIAN Or Potassium chloride 10 mEq in sterile water 100 ml premix IVPB 10 mEq Intravenous As directed PRN Francie Grier DECAL CUTTER-AERIAL SURVEY TECHNICIAN Sodium chloride 0.9% IV solution 250 mL 250 mL Intravenous PRN Francie Juarez Lopezan, DECAL CUTTER-AERIAL SURVEY TECHNICIAN Sodium chloride 0.9% IV solution Intravenous Continuous Francie A Johnan, DECAL CUTTER- AERIAL SURVEY TECHNICIAN 1 mL/hr at 10/16/24 2324 New Bag at 10/16/24 2324 Sodium chloride 0.9% IV solution Intravenous Continuous Francie A Johnan, DECAL CUTTER-AERIAL SURVEY TECHNICIAN sodium phosphate 30 mmol in Sodium chloride 0.9%, with overfill 285 mL (total volume) IVPB 30 mmol Intravenous As directed PRN Francie A Gadielghan, DECAL CUTTER-AERIAL SURVEY TECHNICIAN Or sodium phosphate 45 mmol in Sodium chloride 0.9%, with overfill 290 mL (total volume) IVPB 45 mmol Intravenous As directed PRN Francie Juarez Lopezan, DECAL CUTTER-AERIAL SURVEY TECHNICIAN Vancomycin HCl in NaCl (Vancocin) 1,500 mg [...] (Axillary) Resp 21 Ht 1.753 m (5' 9) Wt (!) 163 kg (359 lb 5.6 [...] IMAGING CT ANGIO BRAIN/NECK Preliminary Result IMPRESSION: \ 1. Examination is equivocal for mid/distal left [...] discussed the critical finding/s of possible left STEAM PRESS OPERATOR occlusion with Kristen Ramon MD on 10/16/2024 8:[address] STROKE HEAD-STROKE ALERT ONLY Final Result IMPRESSION: 1. Acute left temporo-occipital parenchymal hemorrhage, likely hemorrhagic transformation of recent STEAM PRESS OPERATOR territory infarct. 2. Trace interventricular hemorrhage. 3. [...] summary, 69 yo presenting as transfer from H w aphasia, found to have hemorrhage on [...] concern for hemorrhagic stroke. Was inpatient at [facility] facility for foot wound/osteomyelitis. Had [...] acute life and/or limb threats): hemorrhagic stroke, global compensation analyst malignancy, lymphoma, mets EKG Interpretation Interpreted by emergency department physician Rhythm: atrial fibrillation - controlled Rate: normal [place]: normal Ectopy: premature ventricular contractions (unifocal) Conduction: [...] osteomyelitis, has been hospitalized since 10/09. Around 8604-0097 he developed aphasia, head ct showed hemorrhage with mass effect. Pt alert to self. BG en route 202. Pt on eliquis at home, unsure of last dose of eliquis. Hx of Afib. 2-3LPM NC. * Jose Juan Lyn RN - 10/16/2024 8:34 PM EDT Bed: E040 Expected date: 10/16/24 Expected time: 8:30 PM Means of arrival: Private Ambulance Comments: documented in this [facility]04-[facility] History and physical note* Elizabeth Agosto [...] admission) Hospital Medications: Infusions: niCARdipine 5 mg/hr (10/16/24 2202) Scheduled: meropenem 1 g Intravenous Q8HNS [START [...] ASSESSMENT AND PLAN Neuro: (10/16) 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 [...] Temperooccipital ICH likely hemorrhagic transformation of left STEAM PRESS OPERATOR stroke, ICH, mild mass effect - 10/17: [...] No Current Issues Pulm: No Current Issues [facility] - Goal SpO2 >92%; wean FiO2 as tolerated - [id number], encourage pulmonary toileting - / CXR: result [...] LDL >70; began No results for input(s): CHOLESTEROL, TRIG, HDL, LDLDIRECT in the last 72 hours. - Afib: Hold AC for now given ICH Renal/: No Current Issues Fluid Balance: - Goal: euvolemia - Maintenance: 0.9NS w/ 20 KCl @ 75mL/hr No intake or output data in the 24 hours ending 10/16/240 - Daily Chem 10; electrolytes replaced per NCCU protocol Recent Labs 10/16/242044 SODIUM 136 POTASSIUM 3.8 CHLORIDE 99 CO2 29 BUN 9 CREATSERUM 0.52* GI/Nutrition: No Current Issues Recent Labs 10/16/242044 ALBUMIN 3.5 BILIDIRECT 0.2 BILITOTAL 0.6 ALKPHOS 92 ALT 13 AST 14 TP 7.2 - DIET NPO WITHOUT meds - Del Swallow Screening Result: failed=NPO Bowel regimen: - [...] .Hypertension, Uncomplicated - Ischemic CVA, Location: Left STEAM PRESS OPERATOR - hemorrhagic transformation ICU Checklist: [x] Assess pain [x] Both SAT & SBT [x] Choice of analgesia/ sedation See neuro [x] Delirium [x] Early mobility PT/OT consulted?: Yes [x] Family Engagement Primary Emergency Contact: Rogelio Zaragoza Last updated: [x] Get lines out Bruce: inserted 10/16, (indication: HTN) Beard: inserted , [...] the assigned neurocritical care provider (resident, fellow, INSTRUCTIONAL TECHNOLOGY TEACHER, orPA) or page/call the corresponding number below NCC1 (Beds [phone]): [place] # [phone], pager #[phone] NCC2 (Beds 4329-4803, 12 [place], and overflow): [place] #: [phone], pager #[phone] documented in this encounter[facility]04-23-2025 [facility]04-22-2025 History and physical note [facility] Medical Records Department [address] [place] [address] H&P Exam - Hospitalist 10/09/24 1552 MR#: [id number] Acct: [id number] Name: LANI ZARAGOZA Rep #:[id number] : 1955 69 From: Chula Antunez MD PCP: Dr. Bernabe Reese MD Status:AD M IN Location: [facility] AE537-7 HPI - General General Date of Admission: 10/09/24 Date of Service: 10/09/24 Chief Complaint: R diabetic foot ulcer HPI Narrative LANI ZARAGOZA, is a 69-year-old male with a history of diabetes, hypertension, sleep apnea, paroxysmal atrial fibrillation A-fib who presented [facility] ED 2024 from wound clinic for IV [...] not have pain but does note it itches, has chronic fatigue which has not changed recently and also has chronic shortness of breath which has not changed with no cough or fever. 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 [facility] Medical History Chronic cellulitis Streptococcal bacteremia Hyperglycemia [...] 5 mg PO QHS BP 10/01/2009/19 History ijuhldei-rm-dzets 300 mcg-K 60 1 tablet PO DAILY [...] x #1,200 ea 05/23/23 Unk nown Rx acetaminophen 500 mg tablet 1,000 mg PO [...] 82.8 H, Lymph % (Auto) 9.2 L, [place] % (Auto) 6.5, Eos % (Auto) 0.7, [...] Right basilar atelectasis or pneumonia. Reading Location: [facility] Foot X-Ray 10/09/24 13:45 IMPRESSION: No obvious radiographic evidence of osteomyelitis. However, if clinical suspicion remains high, further evaluation with 3 phase bone scan or MRI is recommended. Reading Location: [facility] Assessment & Plan Assessment/Plan (1) Diabetic ulcer [...] Reese MD; Dr. Chula Antunez MD~ Signed [facility]04-22-2025 Discharge summary [facility] Medical Records Department [address] [place] [address] Emergency Department Summary 10/09/24 MR#: [id number] Acct: [id number] Name: LANI ZARAGOZA Rep #:[id number] : [...] A-fib on Eliquis last dose this morning. [facility] Medical History Chronic cellulitis Streptococcal bacteremia [...] 5 mg PO QHS BP 10/01/20/07/14 History epahxmsc-jn-fmztb 300 mcg-K 60 1 tablet PO DAILY suppl emetkaylee 10/01/20 05/21/23 H istory mcg-lycop 600 mcg-lutein [...] x #1,200 ea 05/23/23 Unk nown Rx acetaminophen 500 mg tablet 1,000 mg PO [...] meropenem and vancomycin. 1415: I spoke with bag mender Dr. Garcia, discussed patient A-fib on Eliquis. [...] Hospitalist, podiatry This note was generated with [employer]p Sportsation software. It may contain incorrectwords, spelling, and [...] 82.8 H Lymph % (Auto) 9.2 L Doddridge % (Auto) 6.5 Eos % (Auto) 0.7 [...] (Auto) Neut % (Auto) Lymph % (Auto) Doddridge % (Auto) Eos % (Auto) Baso % [...] Right basilar atelectasis or pneumonia. Reading Location: [facility] Foot X-Ray 10/09/24 13:45 IMPRESSION: No obvious radiographic evidence of osteomyelitis. However, if clinical suspicion remains high, further evaluation with 3 phase bone scan or MRI is recommended. Reading Location: [facility] Discharge Plan Triage Chief Complaint: Wound ED [...] 5 MG tablet 5 mg PO QHS da-pjq-devsg-I9-nammrmt-jkekvn 1 EACH tablet 1 tablet PO DAILY apixaban 5 mg tablet 5 mg PO BID gabapentin 800 mg tablet 800 mg PO .COMPLEX PRN (Reason: neuropathy) Rx Instructions: 800 mg orally 3-4 times daily PRN; (DME) pen needle, diabetic 32 gauge x 5/32 needle See Rx Instructions .Route Qty: 1200 0RF Rx Instructions: As directed metoprolol tartrate 50 mg tablet 50 mg PO BID amoxicillin-pot clavulanate 875-125 mg tablet 1 tab PO BID Primary Care Provider: Bernabe Reese Referrals: Bernabe Reese MD [Primary Care Provider] - Print Language: Senegalese Disposition Disposition: Acute Care Hospital [facility] What to do if you have Problems For any increased pain, shortness of breath, bleeding, nausea or vomiting, chestpain, or any unexpected problems, contact your Primary Care Provider. Call [facility] ([phone]) or report tothe closest Emergency Room. Call 911 if necessary. 10/09/24 0333 Cosigner Signature (if applicable): CC: Dr. Bernabe Reese MD ~ Signed [facility]04-22-2025 Radiology Diagnostic study note [facility] Imaging Services [address] [place], [place] [id number] Foot min 3 Views MR#: [id number] Acct: [id number] Name: LANI ZARAGOZA Rep #: [id number] : 1955 M 69 From: Dasha Gifford MD PCP: Dr. Bernabe Reese MD Status: RE G ER Study:Foot min 3 Views Date of Exam: Exam# [id number] Ordering Dr: Logan Gifford DO EXAM: XR [...] scan or MRI is recommended. Reading Location: [facility] CC: Dr. Bernabe Reese MD; Dr. Logan Gifford DO ~ Robotype Operator: Signed [facility]04-22-2025 Radiology Diagnostic study note [facility] Imaging Services [address] [place], [place] [address] Chest 1 View (Portable) MR#: [id number] Acct: [id number] Name: LANI ZARAGOZA Rep #: [id number] : 1955 M 69 From: Dasha Gifford MD PCP: Dr. Bernabe Reese MD Status: RE G ER Study:Chest 1 View (Portable) Date of Exam: 10/09/24 Exam# [id number] Ordering Dr: Logan Gifford DO EXAM: XR Chest, 1 View CLINICAL INDICATION: PREOP TECHNIQUE: Frontal view of the chest. COMPARISON: No relevant prior studies available. FINDINGS: LUNGS AND PLEURAL SPACES: Right basilar atelectasis or pneumonia. No pneumothorax. HEART: Unremarkable. No cardiomegaly. MEDIASTINUM: Unremarkable. Normal mediastinal contour. BONES/JOINTS: Unremarkable. No acute fracture. RAD/Chest 1 View (Portable) IMPRESSION: Right basilar atelectasis or pneumonia. Reading Location: [facility] CC: Dr. Bernabe Reese MD; Dr. Logan Gifford DO ~ Robotype Operator: Signed [facility]04-22-2025 Discharge summary Author Logan Gifford [facility] Note Date/Time 2024 3:5 1pm [facility] Medical Records Department [address] [place] [address] Emergency Department Summary 10/09/24 MR#: [id number] Acct: [id number] Name: LANI ZARAGOZA Rep #:[id number] : [...] fib on Eliquis last dose this morning. [facility] Medical History Chronic cellulitis Streptococcal bacteremia [...] PO QHS BP 10/01/20 04/2 07/14 History cuzlhxqd-dw-jleqc 300 mcg-K 60 1 tablet PO DAILY suppl emerin 10/01/20 05/21/23 H istory mcg-lycop 600 mcg-lutein [...] x #1,200 ea 05/23/23 Unk nown Rx acetaminophen 500 mg tablet 1,000 mg PO [...] meropenem and vancomycin. 1415: I spoke with bag mender Dr. Garcia, discussed patient A[facility]fib on [facility]. Plan for admission IV antibiotics to medicine, [...] Hospitalist, podiatry This note was generated with Appian dictation software. It may contain incorrectwords, spelling, [...] 82.8 H Lymph % (Auto) 9.2 L Doddridge % (Auto) 6.5 Eos % (Auto) 0.7 [...] (Auto) Neut % (Auto) Lymph % (Auto) Doddridge % (Auto) Eos % (Auto) Baso % [...] Right basilar atelectasis or pneumonia. Reading Location: [facility] Foot X-Ray 10/09/24 13:45 IMPRESSION: No obvious radiographic evidence of osteomyelitis. However, if clinical suspicion remains high, further evaluation with 3 phase bone scan or MRI is recommended. Reading Location: [facility] Discharge Plan Triage Chief Complaint: Wound ED [...] 5 MG tablet 5 mg PO QHS gq-xsh-ufayr-N6-nyanlfe-hglvdg 1 EACH tablet 1 tablet PO DAILY apixaban 5 mg tablet 5 mg PO BID gabapentin 800 mg tablet 800 mg PO .COMPLEX PRN (Reason: neuropathy) Rx Instructions: 800 mg orally 3-4 times daily PRN; (DME) pen needle, diabetic 32 gauge x 5/32 needle See Rx Instructions .Route Qty: 1200 0RF Rx Instructions: As directed metoprolol tartrate 50 mg tablet 50 mg PO BID amoxicillin-pot clavulanate 875-125 mg tablet 1 tab PO BID Primary Care Provider: Bernabe Reese Referrals: Bernabe Reese MD [Primary Care Provider] - Print Language: Senegalese Disposition Disposition: Acute Care Hospital [facility] What to do if you have Problems For any increased pain, shortness of breath, bleeding, nausea or vomiting, chestpain, or any unexpected problems, contact your Primary Care Provider. Call [facility] ([phone]) or report to the closest Emergency Room. Call 911 if necessary. 10/09/24 1551 <Electronically signed by Logan Downs> Cosigner Signature (if applicable): CC: Dr. Bernabe Reese MD ~ Signed [facility] Work Phone: 1(202) 843-748004-22-2025 Evaluation note* Diagnosis Onset Date Resolution Status [...] ulcer of right heel acute 2024 3:52pm [facility] Work Phone: 1([phone]) 994-114004-22-2025 Evaluation note* Diagnosis Onset Date Resolution Status [...] necrosis of muscle chronic November 13 10:30am [facility] Work Phone: [phone]) 933-213604-22-2025 Evaluation note* Diagnosis Onset Date Resolution Status [...] necrosis of muscle chronic December 04 10:00am [facility] Work Phone: 1([phone]) 398-340604-22-2025 Evaluation note* Diagnosis Onset Date Resolution Status [...] necrosis of muscle chronic December 11 10:00am [facility] Work Phone: 1([phone]) 864-419604-22-2025 Evaluation note* Diagnosis Onset Date Resolution Status [...] right foot with fat layer exposed chronic 2024 10:30am Acute osteomyelitis of right calcaneus acute 2024 3:52pm Bacteremia due to coagulase-negative Staphylococcus acute 2024 3:52pm Diabetic ulcer of right heel acute 2024 3:52pm Other acute osteomyelitis, r ight ankle and foot acute 2024 3:52pm Type 2 diabetes mellitus wit h diabetic polyneuropathy acute October 092024 3:52pm 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 October 09 3:52pm Acute osteomyelitis of right calcaneus acute [...] foot with fat layer exposed chronic December 11, 2024 10:00am 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 December 11 10:00am Arthritis acute January 16 10:30am Atrial fibrillation acute January 16, 2025 10:30am BiPAP (biphasic positive air way pressure) dependence acute January 16, 2025 10:30am Cellulitis of left toe acute Ju ly 2024 10:30am Chronic anticoagulation acute J 2024 10:30am Diabetic ulcer of right heel acute January 16, 2025 10:30am Former smoker acute January 16, 2025 10:30am History of amputation of toe acute January 16, 2025 10:30am History of edema acute December 10:30am Insulin dependent diabetes mellitus acute January 16, 2025 10:30am Obstructive sleep apnea acute J 2024 10:30am Type 2 diabetes mellitus wit h diabetic polyneuropathy acute December 10:30am Bilateral leg edema chronic January 16, 2025 10:30am Dyspnea on exertion chronic January 16, 2025 10:30am Essential (primary) hypertension chr onic January 16, 2025 10:30am HTN (hypertension) chronic December 202024 10:30am Hyperlipidemia chronic January 16, 2025 10:30am Morbid obesity chronic January 16, 2025 10:30am Non-pressure chronic ulcer o f other part of left foot with fat layer exposed chronic January 16, 2025 10:30am 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 January 16 10:30am Non-pressure chronic ulcer o f other part of right foot with fat layer exposed chronic January 16, 2025 10:30am Pickwickian syndrome chronic January 16, 2025 10:30am Type 2 diabetes mellitus chronic January 16, 2025 10:30am Venous insufficiency (chroni c) (peripheral) chronic January 16, 2025 10:30am [facility] Work Phone: [phone] Evaluation note* Diagnosis Onset Date Resolution Status [...] fat layer exposed chronic October 02 10:15am [facility] Work Phone: [phone]) 175-924612-04-2023 Progress note Author Ralph Mancini [facility] May 23, 2023 6:40pm Note Date/Time May 23, 2023 6 :29pm [facility] Medical Records Department [address] [place] [address] Progress Note 05/23/231822 MR#: [id number] Acct: [id number] Name: LANI ZARAGOZA Rep #:[id number] : 1955 67 From: Ralph mckenna DPM PCP: Dr. Bernabe Reese MD Status:AD M IN Location: [place] [id number] Subjective Subjective Patient seen and evaluated this [...] % (Auto) 67.7, Lymph % (Auto) 21.5, Doddridge% (Auto) 6.8, Eos % (Auto) 3.0, Baso [...] mellitus with diabetic polyneuropathy: QUALIFIERS: Diabetes mellitus correction insulin use: unspecified terminal operator insulin use status Qualified Code(s): E11.42 - [...] worn at all times. Encouraged continuing with metabolic specialist for diabetic care upon discharge. Medicine team currently following for medical management, they are greatly appreciated. Infectious disease following for management of antibiotics, they are greatly appreciated. Infectious disease plan to discharge on oral clindamycin. Patient is set to be discharged home tonight on oral antibiotics. He will follow-up with primary care following discharge and is recommended to continue to follow with metabolic specialist for continued diabetic care and lower extremity care. He is agreeable to this. Ralph Mancini Jr. D.P.M. [facility] [phone] 05/23/23 1840 <Electronically signed by Ralph Mancini DPJoyce> Ralph Mckeon Cosigner Signature (if applicable): CC: ~ Signed [facility] Work Phone: [phone] 447-641512-04-2023 Consult note Author Nakul Fowler [facility] May 23, 2023 1:53pm Note Date/Time May 23, 2023 1 :53pm [facility] Medical Records Department [address] [facility] [place] [address] Counseling Note - Pharmacy 05/23/23 1353 MR#: [id number] Acct: [id number] Name: LANI ZARAGOZA Rep #:[id number] : 1955 67 From: Nakul Fowler PCP: Dr. Bernabe Reese MD Status:AD M IN Y Location: [facility] [id number] Pharmacy [facility] Pharmacy Service has performed discharge medication [...] tablet 5 mg PO QHS BP 10/01/20 tffmspqg-or-nhdto 300 mcg-K 60 mcg-lycop 600 mcg-lutein 300 [...] signed by Nakul boston> Date _ Nakul Fowler Cosigner Signature (if applicable): Date CC: ~ Signed [facility] Work Phone: [phone] Discharge summary Author Julee Spain [facility] May 23, 2023 1:30pm Note Date/Time May 23, 2023 1 :19pm [facility] Medical Records Department [address] [place] [address] Discharge Summary 05/23/23 1318 MR#: [id number] Acct: [id number] Name: LANI ZARAGOZA Rep #:[id number] : 1955 67 From: Julee Spain DO PCP: Dr. Bernabe Reese MD Status:AD M IN Location: [facility] FI694-9 Providers Date of Admission: 05/21/23 Date of Discharge: 05/23/23 Primary Care Physician: Dr. Bernabe Reese MD Consultations 05/21/23 17:49 Consult: Infectious Disease Routine Consulting Provider: Gregorio Mccarthy Reason for Consult: RLE cellulitis, concern for OM EMERGENT Consult: No Notified: Yes Date Notified: 05/22/23 Time Notified: 20:24 Method of Notification: Answering Service 05/21/23 23:59 Consult: Podiatry Routine Consulting Provider: Albert Root Reason for Consult: rle cellulitis r/o om EMERGENT Consult: No Notified: Yes Date Notified: 05/22/23 Time Notified: [...] tablet 5 mg PO QHS BP 10/01/20 wyoonzbk-wr-wcdjs 300 mcg-K 60 mcg-lycop 600 mcg-lutein 300 [...] who presented to the emergency department at [facility] on 05/21/2023 with shortness of breath, generalized weakness, and worsening right lower extremity edema. Upon presentation he had no conversational dyspnea and did not appear to be in any acute distress. He was satting well on room air with no increased work of breathing at time of evaluation the emergency department. 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 He reported over the last few days [...] % (Auto) 67.7, Lymph % (Auto) 21.5, Doddridge% (Auto) 6.8, Eos % (Auto) 3.0, Baso [...] 5 MG tablet 5 mg PO QHS qu-ncj-mzmdw-G4-pblxmsr-gyqgne 1 EACH tablet 1 tablet PO DAILY [...] Self Care Charges/Coding Visit Charges Inpatient E&M: 99881 Disch Hosp >30min 05/23/23 1330 <Electronically signed by Julee Spain DO> Cosigner Signature (if applicable): CC: Dr. Bernabe Reese MD; Dr. Julee Spain DO~ Signed [facility] Work Phone: [phone] 356-217212-04-2023 Consult note Author Bridger Martinez [facility] May 23, 2023 10:21am Note Date/Time May 23, 2023 1 0:21am [facility] Medical Records Department [address] [place] [address] Consultation - Infectious Dx 05/23/23 1018 MR#: [id number] Acct: [id number] Name: LANI ZARAGOZA Rep #:[id number] : 1955 67 From: Bridger Martinez MD PCP: Dr. Bernabe Reese MD Status:AD M IN Location: [facility] LN273-5 Assessment & Plan Assessment/Plan (1) Cellulitis of [...] with underlying lymphedema of the right leg. [facility] Medical History (Updated 05/21/23 @ 15:48 by [...] QHS BP 10/01/20 [History Last Taken 05/20/23] pzadjmsy-eb-vptdz 300 mcg-K 60 mcg-lycop 600 mcg-lutein 300 [...] % (Auto) 67.7, Lymph % (Auto) 21.5, Doddridge% (Auto) 6.8, Eos % (Auto) 3.0, Baso [...] Dr. Haily Javier, DO; Dr. Bernabe Reese MD; Dr. Gregorio Mccarthy MD~ Signed [facility] Work Phone: [phone] 340-334412-03-2023 Progress note Author Julee Spain [facility] Francisco 3rd, 2023 12:24pm Note Date/Time May 22, 2023 8 :57am [facility] Medical Records Department [address] [place] [address] Progress Note - Hospitalist 05/22/23 0849 MR#: [id number] Acct: [id number] Name: LNAI ZARAGOZA Rep #:[id number] : 1955 67 From: Julee Spain DO PCP: Dr. Bernabe Reese MD Status:AD M IN Location: [facility] DS669-9 Reason for Visit Reason for Visit: Shortness of breath/weakness/right lower extremity swelling Subjective Subjective Patient is a super morbidly obese white male who presented to the emergency department at [facility] on 05/21/2023 with shortness of breath, generalized weakness, and worsening right lower extremity edema. Upon presentation he had no conversational dyspnea and did not appear to be in any acute distress. He was satting well on room air with no increased work of breathing. 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 He reported over the last few days [...] (Auto) 74.4 H, Lymph % (Auto) 16.0 L,Doddridge % (Auto) 7.7, Eos % (Auto) 1.0, [...] Clarity Clear, Urine pH 5.0, Ur Specific Severn 1.020, Urine Protein 30 H, Urine Glucose [...] -Full code Charges/Coding Visit Charges Inpatient E&M: 73921 Subs Hosp L3 05/22/23 1224 <Electronically signed by Julee Spain DO> Cosigner Signature (if applicable): CC: ~ Signed [facility] Work Phone: 1([phone] 389-153612-03-2023 Consult note Author Albert Root [facility] May 22, 2023 11:20am Note Date/Time May 22, 2023 1 0:41am [facility] Medical Records Department [address] [place] [address] Consultation 05/22/23 1041 MR#: [id number] Acct: [id number] Name: LANI ZARAGOZA Rep #:[id number] : 1955 67 From: Albert Root DPM PCP: Dr. Bernabe eRese MD Status:AD M IN [facility] Consult Data Date of Consult: 05/22/23 HPI Narrative HPI Narrative: LANI ZARAGOZA, is a 67 M who presents [facility] Medical History (Updated 05/21/23 @ 15:[address] Edward Luevano DO) Alcohol use Ambulates with cane Anxiety Arthritis Atrial fibrillation Bilateral leg edema BiPAP (biphasic positive airway pressure) dependence [facility] Cardiology follow-up encounter Chronic anticoagulation Chronic [...] QHS BP 10/01/20 [History Last Taken 05/20/23] viujzwij-zl-rngix 300 mcg-K 60 mcg-lycop 600 mcg-lutein 300 [...] (Auto) 74.4 H, Lymph % (Auto) 16.0 L,Doddridge % (Auto) 7.7, Eos % (Auto) 1.0, [...] Clarity Clear, Urine pH 5.0, Ur Specific Severn 1.020, Urine Protein 30 H, Urine Glucose [...] swelling. Degenerative changes. Electronically Signed: Dalton Tomas at 19:41 EST , Ankle X-Ray 05/21/23 [...] (if applicable): CC: DPJoyce Root; Dr. Haily Javier, DO; Dr. Bernabe [...] (if applicable): cc: ESAU Root; Dr. Haily Javier DO; Dr. Bernabe Reese MD ~* Signed [facility] Work Phone: [phone] Consult note Author Bernabe Milan [facility] May 21, 2023 10:34pm Note Date/Time May 21, 2023 1 0:34pm [facility] Medical Records Department [address] [place] [address] Pharmacokinetic/Renal -Consult 05/21/232232 MR#: [id number] Acct: [id number] Name: LANI ZARAGOZA Rep #:[id number] : 1955 67 From: Bernabe Forbes od PCP: Dr. Bernabe Reese MD Status:AD M IN Y Location: [facility] DH736-6 Consult Antibiotic Management Pharmacy has been consulted [...] on [date and time ordered]: 05/22 @ 0 05/21/232233 <Electronically signed by Bernabe jain> Date _ Bernabe Patricio Signature (if applicable): Date CC: ~ Signed [facility] Work Phone: [phone]) 344-561812-02-2023 History and physical note Author [facility] May 21, 2023 5:51pm Note Date/Time May 21, 2023 4 :01pm [facility] Medical Records Department [address] [place] [address] H&P Exam - Hospitalist 05/21/23 1550 MR#: [id number] Acct: [id number] Name: LANI ZARAGOZA Rep #:[id number] : 1955 67 From: Haily ceron DO PCP: Dr. Bernabe Reese MD Status:AD M IN Location: [facility] PN256-5 HPI - General General Date of Admission: 05/21/23 Date of Service: 05/21/23 Chief Complaint: Shortness of breath, weakness, RLE swelling HPI Narrative LANI ZARAGOZA, is a 67 M who presented to [facility] ED on 05/21/2023 from home with multiple concerns including shortness of breath, generalized weakness and worsening right lower extremity swelling. Patient seenat bedside in the ED. Laying comfortably in bed, conversing normally, no acute distress. Patient is satting well on room air, no increased work of breathing noted. Patient lives at home by himself. 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 States over the last few days he [...] vomiting. No other acute concerns this time. [facility] Medical History (Updated 05/21/23 @ 15:[address] Edward Luevano, DO) Alcohol use Ambulates with cane Anxiety Arthritis Atrial fibrillation Bilateral leg edema BiPAP (biphasic positive airway pressure) dependence [facility] Cardiology follow-up encounter Chronic anticoagulation Chronic [...] mg tablet 1,000 mg PO BIDCM diabetes 10/16/14 [History Last Taken 05/21/23] amlodipine 5 mg tablet 5 mg PO QHS BP 10/01/20 [History Last Taken 05/20/23] jgeymmxh-zr-ottjf 300 mcg-K 60 mcg-lycop 600 mcg-lutein 300 [...] (Auto) 74.4 H, Lymph % (Auto) 16.0 L,Doddridge % (Auto) 7.7, Eos % (Auto) 1.0, [...] Clarity Clear, Urine pH 5.0, Ur Specific Severn 1.020, Urine Protein 30 H, Urine Glucose [...] is a 67-year-old male who presented to [facility] ED on 05/21/2023 from home with multiple [...] comfortably. ? Admit under inpatient status to [facility]. Will obtain ABG with patient on roomair to assess for OHS. Continue home BiPAP at night. Incentive spirometry ordered. 2. Generalized weakness, debility, super morbid obesity BMI 59 on admit. Patient lives at home by himself. Was previously hospitalizedin 11/2022 for a UTI, was discharged to SNF at the [facility] at that time. 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 Charges/Coding Visit Charges Inpatient E&M: 24263 Init Hosp L2 05/21/23 1754 <Electronically signed by Haily Jaiver DO> Cosigner Signature (if applicable): CC: Dr. Haily Javier DO; Dr. Bernabe Reese MD~ Signed [facility] Work Phone: 1([phone]) 857-947106-16-[address] Zimmerman [facility] December 03, 2022 9:51am Note Date/Time December 03, 2022 9:46 am [facility] Medical Records Department [address] [place] [address] Transfer to [facility] MR#: [id number] Acct: [id number] Name: LANI ZARAGOZA Rep #:[id number] : 1955 67 From: Hilda Zimmerman MD PCP: Dr. Bernabe Reese MD Status:AD M IN Certification of patient admission REQUIRED AT TIME OF ADMISSION. I CERTIFY THAT POST-HOSPITAL ECF SERVICES ARE REQUIRED TO BE GIVEN ON AN IN-PATIENT BASIS BECAUSE OF THE ABOVE NAMED PATIENT'S NEED FOR LONG-TERM CARE ON A CONTINUING BASIS FOR THE [...] prior to d/c. Recommend PCP referral to [facility] for ongoing education and follow-up. [...] 5 MG tablet 5 mg PO QHS ahqdgqgv-kbz-NA-lycopen-lutein 1 EACH tablet 1 tablet PO DAILY [...] in before D/C Order can be placed): [facility] 12/03/22950 <Electronically signed by Hilda Zimmerman MD> Cosigner Signature (if applicable): CC: Dr. Bernabe Reese MD; Dr. Gregorio Mccarthy MD ~ [facility] Work Phone: 1([phone]) 440-806706-15-2023 Progress note Author [facility] December 02, 2022 4:55pm Note Date/Time December 01, 2022 11:4 8am [facility] Medical Records Department [address] [place] [address] Progress Note 12/01/22 1143 MR#: [id number] Acct: [id number] Name: LANI ZARAGOZA Rep #:[id number] : 1955 67 From: Hilda Zimmerman MD PCP: Dr. Bernabe Reese MD Status:AD M IN Location: [place] [address] Subjective Subjective Patient seen and examined. He [...] 70.4 H, Lymph % (Auto) 18.9 L, Doddridge % (Auto) 8.8, Eos % (Auto) 1.2, [...] code * Charges/Coding Visit Charges Inpatient E&M: 68053 Subs Hosp L2 12/02/22 6335 <Electronically signed by Hilda Zimmerman MD> Hilda Zimmerman MD Cosigner Signature (if applicable): CC: ~ Signed [facility] Work Phone: 1([phone]) 610-269806-15-[address] Zimmerman [facility] December 02, 2022 4:55pm Note Date/Time December 02, 2022 1:26 pm [facility] Medical Records Department [address] [place] [address] Progress Note 12/02/22 1313 MR#: [id number] Acct: [id number] Name: LANI ZARAGOZA Rep #:[id number] : 1955 67 From: Hilda Zimmerman MD PCP: Dr. Bernabe Reese MD Status:AD M IN Location: [place] [address] Subjective Subjective Patient seen and examined. He [...] 71.8 H, Lymph % (Auto) 17.4 L, Doddridge % (Auto) 8.0, Eos % (Auto) 1.5, [...] precert obtained. Charges/Coding Visit Charges Inpatient E&M: 34705 Subs Hosp L2 12/02/22 1655 <Electronically signed by Hilda Zimmerman MD> Hilda Zimmerman MD Cosigner Signature (if applicable): CC: ~ Signed [facility] Work Phone: 1([phone]) 807-901206-15-[address] Mccarthy [facility] December 02, 2022 11:29am Note Date/Time December 02, 2022 11:2 9am [facility] Medical Records Department [address] [place] [address] Progress Note - Infect Disease 12/02/22 1128 MR#: [id number] Acct: [id number] Name: LANI ZARAGOZA Rep #:[id number] : 1955 67 From: Gregorio boston MD PCP: Dr. Bernabe Reese MD Status:AD M IN Location: [place] [address] Physical Exam Narrative Feeling about the same [...] tid with stop date 12/08/22. Will follow 12/02/221128 <Electronically signed by Gregorio Mccarthy MD> [place] Signature (if applicable): CC: ~ Signed [facility] Work Phone: [phone]) 833-876906-14-2023 Consult note Author Lawrence Rodriguez [facility] December 01, 2022 9:44pm Note Date/Time December 01, 2022 5:34 am [facility] Medical Records Department [address] [place] [address] Pharmacokinetic/Renal -Consult 12/01/22 0533 MR#: [id number] Acct: [id number] Name: LANI ZARAGOZA Rep #:[id number] : 1955 67 From: Saqib Dickey PCP: Dr. Bernabe Reese MD Status:AD M IN Location: [place] [address] Consult Pharmacy has been consulted to manage [...] [date and time ordered]: 12/02/22 @1700 12/01/22 4711 <Electronically signed by Saqib hilton > Date _ Saqib Dickey 12/01/22 5582 <Electronically signed by Lawrence barger MD> Cosigner Signature (if applicable): Date Lawrence Rodriguez MD CC: ~ Signed [facility] Work Phone: 1(604) 591-820606-14-[address] Mccarthy [facility] December 01, 2022 1:49pm Note Date/Time December 01, 2022 1:49 pm [facility] Medical Records Department [address] [place] [address] Progress Note - Infect Disease 12/01/22 1348 MR#: [id number] Acct: [id number] Name: LANI ZARAGOZA Rep #:[id number] : 1955 67 From: Gregorio boston MD PCP: Dr. Bernabe Reese MD Status:AD M IN Location: [place] [address] Physical Exam Narrative Feeling ok, some leg [...] Cosigner Signature (if applicable): CC: ~ Signed [facility] Work Phone: 1([phone]) 801-245506-14-2023 Progress note Author Lawrence Rodriguez [facility] December 01, 2022 7:45am Note Date/Time December 01, 2022 7:44 am [facility] Medical Records Department [address] [place] [address] Progress Note - Hospitalist 12/01/22 0743 MR#: [id number] Acct: [id number] Name: LANI ZARAGOZA Rep #:[id number] : 1955 67 From: Lawrence Rodriguez MD PCP: Dr. Bernabe Reese MD Status:AD M IN Location: [place] [address] Hospitalist Note Vancomycin was started overnight due to erythematous extensive swelling in the lower extremity on left side - concerning for cellulitis. Would appreciate ID comments regarding need for ongoing Vanc vs resuming with ceftriaxone alone. 12/01/22 0745 <Electronically signed by Lawrence Rodriguez MD> Cosigner Signature (if applicable): CC: ~ Signed [facility] Work Phone: [phone]) 531-882706-13-[address] Zimmerman [facility] November 30, 2022 4:38pm Note Date/Time November 29, 2022 3:19 pm [facility] Medical Records Department [address] [place] [address] Progress Note 11/29/22 1512 MR#: [id number] Acct: [id number] Name: LANI ZARAGOZA Rep #:[id number] : 1955 67 From: Hilda Zimmerman MD PCP: Dr. Bernabe Reese MD Status:AD M IN Location: [place] [address] Subjective Subjective Patient seen and examined. He [...] 82.7 H, Lymph % (Auto) 11.4 L, Doddridge % (Auto) 5.1, Eos % (Auto) 0.0, [...] confused. * Charges/Coding Visit Charges Inpatient E&M: 48782 Subs Hosp L3 11/30/22 1638 <Electronically signed by Hilda Zimmerman MD> Hilda Zimmerman MD Cosigner Signature (if applicable): CC: ~ Signed [facility] Work Phone: 1(802) 544-350506-13-2023 Progress note Author [facility] November 30, 2022 4:38pm Note Date/Time November 30, 2022 10:3 5am [facility] Medical Records Department [address] [facility] [place] [address] Progress Note 11/30/22 1033 MR#: [id number] Acct: [id number] Name: LANI ZARAGOZA Rep #:[id number] : 1955 67 From: Hilda Zimmerman MD PCP: Dr. Bernabe Reese MD Status:AD M IN Location: [place] [address] Subjective Subjective Patient seen and examined. He [...] % (Auto) 68.4, Lymph % (Auto) 19.2, Doddridge % (Auto) 9.9, Eos % (Auto) 1.6, [...] code * Charges/Coding Visit Charges Inpatient E&M: 67101 Subs Hosp L2 11/30/22 1638 <Electronically signed by Hilda Zimmerman MD> Hilda Zimmerman MD Cosigner Signature (if applicable): CC: ~ Signed [facility] Work Phone: [phone]) 905-956706-13-[address] Mccarthy [facility] November 30, 2022 10:52am Note Date/Time November 30, 2022 10:5 2am [facility] Medical Records Department [address] [place] [address] Consultation - Infectious Dx 11/30/22 1047 MR#: [id number] Acct: [id number] Name: LANI ZARAGOZA Rep #:[id number] : 1955 67 From: Gregorio boston MD PCP: Dr. Bernabe Reese MD Status:AD M IN Location: [place] [address] Assessment & Plan Assessment/Plan (1) Acute UTI: [...] performed and neg except as noted above. [facility] Medical History Alcohol use Ambulates with cane Anxiety Arthritis Atrial fibrillation Bilateral leg edema BiPAP (biphasic positive airway pressure) dependence [facility] Cardiology follow-up encounter Depression Diabetes Dietary [...] QHS BP 10/01/20 [History Last Taken 12/03/20] fjubovbw-pnu-qyyup acid 300 mcg-lycopene 600 mcg-lutein 300 mcg [...] % (Auto) 68.4, Lymph % (Auto) 19.2, Doddridge % (Auto) 9.9, Eos % (Auto) 1.6, [...] Unable to assess diastolic dysfunction. Ordering Physician: Hidla Zimmerman Referring Physician: Bernabe Reese Performed By: Melissa Angel RVT, RDCS and Student 11/30/22 1052 <Electronically signed by Gregorio Mccarthy MD> Cosigner Signature (if applicable): CC: Dr. Bernabe Reese MD; Dr. Gregorio Mccarthy MD~ Signed [facility] Work Phone: 1(131) 944-435206-12-2023 History and physical note Author Dr. Zimmerman [facility] November 29, 2022 4:54pm Note Date/Time November 28, 2022 12:1 3pm [facility] Medical Records Department [address] [place] [address] H&P Exam - Hospitalist 11/28/22 1205 MR#: [id number] Acct: [id number] Name: LANI ZARAGOZA Rep #:[id number] : 1955 67 From: Hilda Zimmerman MD PCP: Dr. Bernabe Reese MD Status:AD M IN Location: [facility] [id number] HPI - General General Date of [...] in the ED were temp of 99.8F, NC of 120, BP of 138/88, RR of [...] in the ED, and started on cardizem ip. [facility] Medical History Alcohol use Ambulates with cane Anxiety Arthritis Atrial fibrillation Bilateral leg edema BiPAP (biphasic positive airway pressure) dependence [facility] Cardiology follow-up encounter Depression Diabetes Dietary [...] PO QHS 10/01/20 [History Last Taken 12/03/20] fdbfshlg-geo-zixuc acid 300 mcg-lycopene 600 mcg-lutein 300 mcg [...] 88.3 H, Lymph % (Auto) 5.7 L, Doddridge % (Auto) 4.6, Eos % (Auto) 0.0, [...] GFR (MDRD) Non-Af 86, BUN/Creatinine Ratio 12.9, Qulsefz029 H, Calcium 8.7, Total Bilirubin 1.10 H, [...] Clarity Cloudy, Urine pH 5.0, Ur Specific Severn 1.020, Urine Protein 100 H, Urine Glucose [...] confused. * Charges/Coding Visit Charges Inpatient E&M: 31452 Init Hosp L3 11/29/22 1654 <Electronically signed by Hilda Zimmerman MD> Cosigner Signature (if applicable): CC: Dr. Bernabe Reese MD; Dr. Hilda Zimmerman MD~ Signed [facility] Work Phone: [phone]) 839-752606-11-[address] Bailey [facility] November 28, 2022 5:30pm Note Date/Time November 28, 2022 10:0 2am [facility] Medical Records Department [address] [place] [address] Emergency Department Summary 11/28/22 MR#: [id number] Acct: [id number] Name: LANI ZARAGOZA Rep #:[id number] : 1955 67 From: Gui Bailey MD PCP: Dr. Bernabe Reese MD Status:AD M IN Location: [facility] [id number] HPI HPI - Fall History of [...] edema BiPAP (biphasic positive airway pressure) dependence [facility] Cardiology follow-up encounter Depression Diabetes Dietary [...] PO QHS 10/01/20 [History Last Taken 12/03/20] izqfrdwm-dpo-myqic acid 300 mcg-lycopene 600 mcg-lutein 300 mcg [...] 88.3 H Lymph % (Auto) 5.7 L Doddridge % (Auto) 4.6 Eos % (Auto) 0.0 [...] Color Urine Clarity Urine pH Ur Specific Severn Urine Protein Urine Glucose (UA) Urine Ketones [...] (Auto) Neut % (Auto) Lymph % (Auto) Doddridge % (Auto) Eos % (Auto) Baso % [...] Color Urine Clarity Urine pH Ur Specific Severn Urine Protein Urine Glucose (UA) Urine Ketones [...] (Auto) Neut % (Auto) Lymph % (Auto) Doddridge % (Auto) Eos % (Auto) Baso % [...] Clarity Cloudy Urine pH 5.0 Ur Specific Severn 1.020 Urine Protein 100 H Urine Glucose [...] 136. Frequent PVCs. No acute signs of IA. Critical Care Time Critical Care Time: Yes Critical care time (excluding procedures): 30-74 minutes, Including time spent:,Discussing w/Patient &/or Family/Automotive Manager, Discussing w/Consultants, ArrangingAdmission or Transfer and Performing Direct Patient Care at Bedside Discharge Plan Dx/Rx/DC Orders Clinical Impression: Fall, Acute confusion, Chronic anticoagulation, Acute UTI, Leukocytosis, Atrialfibrillation with RVR, Hyperglycemia due to diabetes mellitus Disposition Disposition: [facility] What to do if you have Problems For any increased pain, shortness of breath, bleeding, nausea or vomiting, chestpain, or any unexpected problems, contact your Primary Care Provider. Call [facility] ([phone]) or report to the closest Emergency Room. Call 911 if necessary. 11/28/22 1730 <Electronically signed by Gui Bailey MD> Cosigner Signature (if applicable): CC: Dr. Bernabe Reese MD ~ Signed [facility] Work Phone: Evaluation noteNo assessment information available [facility] Work Phone: Evaluation note* Diagnosis Onset Date Resolution Status Iron deficiency anemia acute Atrial fibrillation acute Essential (primary) hypertension chronic Hyperlipidemia [facility] Work Phone: Evaluation note* Diagnosis Onset Date Resolution Status Atrial fibrillation acute Chest pain acute Essential (primary) hypertension chronic Hyperlipidemia [facility] Work Phone: Evaluation note* Diagnosis Onset Date Resolution Status Atrial fibrillation acute Chest pain acute Essential (primary) hypertension chronic Hyperlipidemia chronic Acute confusion acute Acute UTI acute Atrial fibrillation with RVR acute Chronic anticoagulation acut e Fall acute Hyperglycemia due to diabetes mellitus acute Leukocytosis acute Streptococcal bacteremia acu te [facility] Work Phone: Evaluation note* Diagnosis Onset Date Resolution Status Atrial fibrillation acute Chest pain acute Essential (primary) hypertension chronic Hyperlipidemia chronic Cellulitis of right leg acut e Dysuria acute Hypoxemia acute Type 2 diabetes mellitus with diabetic polyneuropathy acute Weakness acute Bilateral leg edema chronic Morbid obesity chronic Venous insufficiency (chronic) (peripheral) chronic [facility] Work Phone: Evaluation note* Diagnosis Onset Date Resolution Status Cellulitis of right leg acut e Type 2 diabetes mellitus with diabetic polyneuropathy acute Weakness acute Bilateral leg edema chronic Morbid obesity chronic Venous insufficiency (chronic) (peripheral) chronic Dysuria resolved Hypoxemia resolved Bilateral leg edema chronic Dyspnea on exertion chronic Morbid obesity chronic Pickwickian syndrome chronic [facility] Work Phone: Evaluation note* Diagnosis Ischemic cerebrovascular [...] as uncontrolled [facility] Difficulty urinating- Primary Other symptoms involving urinary system [facility] Chula Antunez [facility] Note Date/Time 2024 4:0 3pm [facility] Medical Records Department [address] [place] [address] H&P Exam - Hospitalist 10/09/24 1552 MR#: [id number] Acct: [id number] Name: LANI ZARAGOZA Rep #:[id number] : 1955 69 From: Chula Antunez MD PCP: Dr. Bernabe Reese MD Status:AD M IN Location: [facility] [id number] HPI - General General Date of Admission: 10/09/24 Date of Service: 10/09/24 Chief Complaint: R diabetic foot ulcer HPI Narrative LANI ZARAGOZA, is a 69-year-old male with a history of diabetes, hypertension, sleep apnea, paroxysmal atrial fibrillation A-fib who presented [facility] ED 2024 from wound clinic for IV [...] not have pain but does note it itches, has chronic fatigue which has not changed recently and also has chronic shortness of breath which has not changed with no cough or fever. 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 [facility] Medical History Chronic cellulitis Streptococcal bacteremia Hyperglycemia [...] PO QHS BP 10/01/20 04/2 07/14 History kozcdnnt-dp-wroiv 300 mcg-K 60 1 tablet PO DAILY [...] x #1,200 ea 05/23/23 Unk nown Rx acetaminophen 500 mg tablet 1,000 mg PO [...] 82.8 H, Lymph % (Auto) 9.2 L, Doddridge % (Auto) 6.5, Eos % (Auto) 0.7, [...] Right basilar atelectasis or pneumonia. Reading Location: [facility] Foot X-Ray 10/09/24 13:45 IMPRESSION: No obvious radiographic evidence of osteomyelitis. However, if clinical suspicion remains high, further evaluation with 3 phase bone scan or MRI is recommended. Reading Location: [facility] Assessment & Plan Assessment/Plan (1) Diabetic ulcer [...] Reese MD; Dr. Chula Antunez MD~ Signed [facility] Work Phone: Progress note [facility] W[facility]aling [facility] [address] [place] [address] Progress Note - Wound Care 03/20/25 1310 MR#: [id number] Acct: [id number] Name: LANI ZARAGOZA Rep #:[id number] : 1955 69 From: León Pompa PM PCP: Dr. Bernabe Reese MD Status:DI S RCR Location: ADDENDUM by DPM Dr. León Cerda on 03/20/25 at 1315 Addendum Physical Exam Narrative Vascular: DP and PT pulse are palpable. CFT is brisk. Skin temperature is warmto warm from proximalankles to distal digit bilateral. +1 pitting edema bilateral. No erythema bilateral. Neurological:. Light touch is intact. Protective station is diminished. Patient does not respond topainful stimuli. Dermatological: Full-thickness wound to the right heel is now healed. There is evidence of callus with no open lesions or abrasions. No concern for infection. Musculoskeletal: No pain to palpation to full-thickness wound bilateral. No pain with calf pressure. 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 All findings were discussed with the patient. All questions were answered to the patient's satisfaction. The patient's right heel wound is now healed. There is evidence of a healed sanguinous crust as callus. Patient will continue to apply lotion to the area. He will continue to wear his double depth shoes and check his feet twice per day. Encourage patient continue to work with therapy. The patient is vital legswelling will be controlled with the double Tubigrip and [facility] get at least 3 pairs of 20 mmHg compression stockings for the bilateral lower extremity. I educated the patient that if he has any issues with breakdown of skin to the right or left lower extremity and or he will he is to present to private office for follow-up and evaluation. Patient will be discharged from the wound care center today. He left the officepleased with this visit. (2) Non-pressure chronic ulcer of other part of right foot with fat layer exposed: CODE(S): L97.512 - Non-pressure chronic ulcer of other part of right foot with fat layer exposed 03/20/25 1315 Cosigner Signature (if applicable): cc: ~* Signed History of Present Illness Date of Service: 03/20/25 Chief Complaint: Diabetic right heel ulceration History of Wound: This is a 69-year-old obese, diabetic male patient whose care has been assumed from Dr. Ramon Garcia, who is departing from our staff. The patient has a chronic ulceration on his right heel, associated with poorly controlled type 2 diabetes mellitus and diabetic polyneuropathy. The patient suffers from multiple other pre-existing medical problems, which are documented herein. The patient's most recent management has been by means of serial debridements, with an EpiFix allograft having been applied at the patient's prior visit on December 11, 2024. Offloading measures and totalcontact casting have also been a recent cornerstone of the patient's management. 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 Progress of Wound: Healed full-thickness heel wound to the right lower extremity. Subjective Subjective Patient is a 69-year-old diabetic male presenting to wound care center today follow-up evaluation of full-thickness wound to the right heel. Patient states that the right heel wound is now completelyhealed. He did get 2 pairs of double depth shoe from [employer] [facility]. He is working with physical therapy at his facility. He does admit to some swelling right greater than leftto the bilateral lower extremity. No full-thickness wounds are noted. His blood sugars well- controlled. He denies trauma. Denies constitutional symptoms. No other pedal complaints at this time. Objective Data Objective Data Vital Signs: Vital Signs Temp Pulse Resp BP O2 Del Method 96.6 F L 71 18 121/56 H Room Air 03/20/25 10:12 03/20/25 10:12 03/20/25 10:12 03/20/25 10:12 03/20/25 10:12 Oxygen Delivery Method Room Air 03/20/25 1311 Cosigner Signature (if applicable): CC: ~ Signed [facility] León Cerda [facility] Note Date/Time March 20, 2025 1: 15pm [facility] [address] [place] [address] Progress Note - Wound Care 03/20/25 1310 MR#: [id number] Acct: [id number] Name: LANI ZARAGOZA Rep #:[id number] : 1955 69 From: León Cerda D PM PCP: Dr. Bernabe Reese MD Status:DI S RCR Location: ADDENDUM by DPM Dr. León Cerda on 03/20/25 at 1315 Addendum Physical Exam Narrative Vascular: DP and PT pulse are palpable. CFT is brisk. Skin temperature is warmto warm from proximal ankles to distal digit bilateral. +1 pitting edema bilateral. No erythema bilateral. Neurological:. Light touch is intact. Protective station is diminished. Patient does not respond to painful stimuli. Dermatological: Full-thickness wound to the right heel is now healed. There is evidence of callus with no open lesions or abrasions. No concern for infection. Musculoskeletal: No pain to palpation to full-thickness wound bilateral. No pain with calf pressure. 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 All findings were discussed with the patient. All questions were answered to the patient's satisfaction. The patient's right heel wound is now healed. There is evidence of a healed sanguinous crust as callus. Patient will continue to apply lotion to the area. He will continue to wear his double depth shoes and check his feet twice per day. Encourage patient continue to work with therapy. The patient is vital legswelling will be controlled with the double Tubigrip and gave an order to the the custodial facility for the patient to get at least 3 pairs of 20 mmHg compression stockings for the bilateral lower extremity. I educated the patient that if he has any issues with breakdown of skin to the right or left lower extremity and or he will he is to present to private office for follow-up and evaluation. Patient will be discharged from the wound care center today. He left the officepleased with this visit. (2) Non-pressure chronic ulcer of other part of right foot with fat layer exposed: CODE(S): L97.512 - Non-pressure chronic ulcer of other part of right foot with fat layer exposed 03/20/25 1315<Electronically signed by León Cerda DPM> Cosigner Signature (if applicable): cc: ~* Signed History of Present Illness Date of Service: 03/20/25 Chief Complaint: Diabetic right heel ulceration History of Wound: This is a 69-year-old obese, diabetic male patient whose care has been assumed from Dr. Ramon Garcia, who is departing from our staff. The patient has a chronic ulceration on his right heel, associated with poorly controlled type 2 diabetes mellitus and diabetic polyneuropathy. The patient suffers from multiple other pre-existing medical problems, which are documented herein. The patient's most recent management has been by means of serial debridements, with an EpiFix allograft having been applied at the patient's prior visit on December 11, 2024. Offloading measures and total contact casting have also been a recent cornerstone of the patient's management. 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 Progress of Wound: Healed full-thickness heel wound to the right lower extremity. Subjective Subjective Patient is a 69-year-old diabetic male presenting to wound care center today follow-up evaluation of full-thickness wound to the right heel. Patient states that the right heel wound is now completely healed. He did get 2 pairs of double depth shoe from [employer]. He is working with physical therapy at his facility. He does admit to some swelling right greater than leftto the bilateral lower extremity. No full-thickness wounds are noted. His blood sugars well-controlled. He denies trauma. Denies constitutional symptoms. No other pedal complaints at this time. Objective Data Objective Data Vital Signs: Vital Signs Temp Pulse Resp BP O2 Del Method 96.6 F L 71 18 121/56 H Room Air 03/20/25 10:12 03/20/25 10:12 03/20/25 10:12 03/20/25 10:12 03/20/25 10:12 Oxygen Delivery Method Room Air 03/20/25 1311 <Electronically signed by León Cerda DPM> Cosigner Signature (if applicable): CC: ~ Signed [facility] Work Phone: Rezxsh for referral (narrative)No reason for referral information [facility]WPro[facility] Work Phone: Resygm for visit Narrative* Auth/Cert Specialty Diagnoses / Procedures Referred By Valarie t Referred To Contact Diagnoses Intracranial hemorrhage Ischemic cerebrovascular accident (CVA) Osteomyelitis (R Foot/ Ext Fixator) Cerebrovascular Accident (Type A Hemorrhagic Stroke) Dillan Guzman MD [address] [facility] [address] [place] [address] Phone: tel: fax: [facility] [address] [place] [address] Referral ID Status Reason Start Date Expiration Date Visits Re quested Visits Authorized [id number] 1 1 [facility] Summary Purpose Family History No Family History Records Found Relationship Condition Age at Onset Recorded Date/T dianna mother Cardiac disease Unknown Diabetes mellitus Unknown father Cardiac disease Unknown Malignant neoplasm Unknown Advance Directives No Advanced Directives Records Found Advance Directive Response Recorded Date/ Time Living Will No December 03, 2020 5:10pm Power of Pyrotechnic Mixer No December 03 5:10pm Advance Directive Response Recorded Date/ Time Living Will Yes April 28 10:03am Power of Pyrotechnic Mixer Yes April 28, 2022 10:03am Advance Directive Response Recorded Date/ Time Living Will Yes April 28 11:03am Power of Pyrotechnic Mixer Yes April 28, 2022 11:03am Advance Directive Response Recorded Date/ Time Living Will No November 28, 2022 9:50am Power of Pyrotechnic Mixer No November 28 9:50am Advance Directive Response Recorded Date/ Time Name of Medical Power of Pyrotechnic Mixer Norma Rosas ( sister) May 21, 2023 5:53pm Living Will No May 21 5:53pm Power of Pyrotechnic Mixer Yes May 21, 2023 5:53pm Advance Directive Response Recorded Date/ Time Name of Medical Power of Pyrotechnic Mixer Norma Rosas ( sister) May 21, 2023 6:53pm Living Will No May 21 6:53pm Power of Pyrotechnic Mixer Yes May 21, 2023 6:53pm Advance Directive Response Recorded Date/ Time Do you have a Healthcare Power of Pyrotechnic Mixer? No 2024 1:26pm Documents on File Type Date Recorded Patient Allergy And Immunology Specialist Expl anation HealthCare Power of Pyrotechnic Mixer 10/16/2024 9:41 PM Rogelio (1st Alt HCPOA) [...] you have a Healthcare Pow er of Pyrotechnic Mixer? Yes 2024 4:40pm Name of Medical Power of Pyrotechnic Mixer Norma Beckham-- sister 2024 4:40pm Chief Complaint [...] necrosis of muscle December 11, 2024 10:00am Chief Complaint Admit Date DIABETES/ [...] CHECK FOR LT TEMPORAL HEMMORAGE November 1:57pm LABWORK December 10, 2024 5:00 am wound December 11, 2024 10:0 0am LONG-TERM LAB WORK December 18, 2024 4:0 0am wound December 18, 2024 3:13p m wound December 25, 2024 6:26p m LONG-TERM LAB WORK January 01, 2025 5: 00am wound January 16, 2025 10:3 0am Reason for Visit Admit Date Iron deficiency anemia 2024 10:30am Other specified peripheral vascular dise ases 2024 10:30am Type 2 diabetes mellitus with diabetic p olyneuropathy 2024 10:30am 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 laye r exposed 2024 10:30am Non-pressure chronic ulcer o f other part of right foot with fat layer exposed 2024 10:30am Acute osteomyelitis of right calcaneus A pril 2024 3:52pm Bacteremia due to coagulase-negative Sta phylococcus 2024 3:52pm Diabetic ulcer of right heel 2024 3:52pm Other acute osteomyelitis, right ankle a nd foot 2024 3:52pm Type 2 diabetes mellitus with diabetic p olyneuropathy 2024 3:52pm 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 2024 3:52pm Acute osteomyelitis of right calcaneus [...] necrosis of muscle December 11, 2024 10:00am Arthritis January 16, 2025 10:3 0am Atrial fibrillation January 16, 2025 10:3 0am BiPAP (biphasic positive airway pressure ) dependence January 16, 2025 10:30am Cellulitis of left toe January 16, 2025 1 0:30am Chronic anticoagulation January 16, 2025 10:30am Diabetic ulcer of right heel January 16, 2025 10:30am Former smoker January 16, 2025 10:3 0am History of amputation of toe January 16, 2025 10:30am History of edema January 16, 2025 10:3 0am Insulin dependent diabetes mellitus January 16, 2025 10:30am Obstructive sleep apnea January 16, 2025 10:30am Type 2 diabetes mellitus with diabetic p olyneuropathy January 16, 2025 10:30am Bilateral leg edema January 16, 2025 10:3 0am Dyspnea on exertion January 16, 2025 10:3 0am Essential (primary) hypertension January 162024 10:30am HTN (hypertension) January 16, 2025 10:3 0am Hyperlipidemia January 16, 2025 10:3 0am Morbid obesity January 16, 2025 10:3 0am Non-pressure chronic ulcer o f other part of left foot with fat layer exposed January 16, 2025 10:30am 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 January 16, 2025 10:30am Non-pressure chronic ulcer o f other part of right foot with fat layer exposed January 16, 2025 10:30am Pickwickian syndrome January 16, 2025 10: 30am Type 2 diabetes mellitus January 16, 2025 10:30am Venous insufficiency (chronic) (peripher al) January 16, 2025 10:30am Chief Complaint Admit Date LAB WORK October 31, 2024 5:00a m LABWORK November 02, 2024 5:00a m LAB WORK November 07, 2024 4:00a m wound November 13, 2024 10:30 am LAB WORK November 14, 2024 5:00a m LAB WORK November 21, 2024 5:50a m CHECK FOR LT TEMPORAL HEMMORAGE November 1:57pm LABWORK December 10, 2024 5:00 am wound December 11, 2024 10:0 0am LONG-TERM LAB WORK December 18, 2024 4:0 0am wound December 18, 2024 3:13p m wound December 25, 2024 6:26p m LONG-TERM LAB WORK January 01, 2025 5: 00am LONG-TERM LAB WORK January 08, 2025 4: 00am LAB WORK January 15, 2025 5:00 am wound January 16, 2025 10:3 0am wound February 13, 2025 10 :15am Reason for Visit Admit Date Acute osteomyelitis of right calcaneus M ay [...] necrosis of muscle December 11, 2024 10:00am Arthritis January 16, 2025 10:3 0am Atrial fibrillation January 16, 2025 10:3 0am BiPAP (biphasic positive airway pressure ) dependence January 16, 2025 10:30am Cellulitis of left toe January 16, 2025 1 0:30am Chronic anticoagulation January 16, 2025 10:30am Diabetic ulcer of right heel January 16, 2025 10:30am Former smoker January 16, 2025 10:3 0am History of amputation of toe January 16, 2025 10:30am History of edema January 16, 2025 10:3 0am Insulin dependent diabetes mellitus January 16, 2025 10:30am Obstructive sleep apnea January 16, 2025 10:30am Type 2 diabetes mellitus with diabetic p olyneuropathy January 16, 2025 10:30am Bilateral leg edema January 16, 2025 10:3 0am Dyspnea on exertion January 16, 2025 10:3 0am Essential (primary) hypertension January 162024 10:30am HTN (hypertension) January 16, 2025 10:3 0am Hyperlipidemia January 16, 2025 10:3 0am Morbid obesity January 16, 2025 10:3 0am Non-pressure chronic ulcer o f other part of left foot with fat layer exposed January 16, 2025 10:30am 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 January 16, 2025 10:30am Non-pressure chronic ulcer o f other part of right foot with fat layer exposed January 16, 2025 10:30am Pickwickian syndrome January 16, 2025 10: 30am Type 2 diabetes mellitus January 16, 2025 10:30am Venous insufficiency (chronic) (peripher al) January 16, 2025 10:30am Non-pressure chronic ulcer o f other part of right foot with fat layer exposed February 13, 2025 10:15am Chief Complaint Admit Date LAB WORK November 21, 2024 5:50a m CHECK FOR LT TEMPORAL HEMMORAGE November 1:57pm LABWORK December 10, 2024 5:00 am wound December 11, 2024 10:0 0am LONG-TERM LAB WORK December 18, 2024 4:0 0am wound December 18, 2024 3:13p m wound December 25, 2024 6:26p m LONG-TERM LAB WORK January 01, 2025 5: 00am LONG-TERM LAB WORK January 08, 2025 4: 00am LAB WORK January 15, 2025 5:00 am wound January 16, 2025 10:3 0am wound February 13, 2025 10 :15am wound March 06, 2025 10:30am wound March 20, 2025 9: 56am Reason for Visit Admit Date Acute osteomyelitis of right calcaneus J une 2024 10:00am Encounter for other orthopedic aftercare December 11, 2024 10:00am Non-pressure chronic ulcer o f other part of right foot with fat layer exposed December 11, 2024 10:00am 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 December 11, 2024 10:00am Arthritis January 16, 2025 10:3 0am Atrial fibrillation January 16, 2025 10:3 0am BiPAP (biphasic positive airway pressure ) dependence January 16, 2025 10:30am Cellulitis of left toe January 16, 2025 1 0:30am Chronic anticoagulation January 16, 2025 10:30am Diabetic ulcer of right heel January 16, 2025 10:30am Former smoker January 16, 2025 10:3 0am History of amputation of toe January 16, 2025 10:30am History of edema January 16, 2025 10:3 0am Insulin dependent diabetes mellitus January 16, 2025 10:30am Obstructive sleep apnea January 16, 2025 10:30am Type 2 diabetes mellitus with diabetic p olyneuropathy January 16, 2025 10:30am Bilateral leg edema January 16, 2025 10:3 0am Dyspnea on exertion January 16, 2025 10:3 0am Essential (primary) hypertension January 162024 10:30am HTN (hypertension) January 16, 2025 10:3 0am Hyperlipidemia January 16, 2025 10:3 0am Morbid obesity January 16, 2025 10:3 0am Non-pressure chronic ulcer o f other part of left foot with fat layer exposed January 16, 2025 10:30am 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 January 16, 2025 10:30am Non-pressure chronic ulcer o f other part of right foot with fat layer exposed January 16, 2025 10:30am Pickwickian syndrome January 16, 2025 10: 30am Type 2 diabetes mellitus January 16, 2025 10:30am Venous insufficiency (chronic) (peripher al) January 16, 2025 10:30am Non-pressure chronic ulcer o f other part of right foot with fat layer exposed February 13, 2025 10:15am Non-pressure chronic ulcer o f other part of right foot with fat layer exposed March 06, 2025 10:30am Non-pressure chronic ulcer o f other part of right lower leg with fat layer March 06, 2025 10:30am Chief Complaint Admit Date CHECK FOR LT TEMPORAL HEMMORAGE November 1:57pm LABWORK December 10, 2024 5:00 am wound December 11, 2024 10:0 0am LONG-TERM LAB WORK December 18, 2024 4:0 0am wound December 18, 2024 3:13p m wound December 25, 2024 6:26p m LONG-TERM LAB WORK January 01, 2025 5: 00am LONG-TERM LAB WORK January 08, 2025 4: 00am LAB WORK January 15, 2025 5:00 am wound January 16, 2025 10:3 0am wound February 13, 2025 10 :15am wound March 06, 2025 10:30am wound March 20, 2025 9: 56am Additional Source Comments (unrecognized sect ion and content) No Status Records FoundNo Status Records FoundNo Status Records FoundNo Status Records FoundNo Status Records FoundNo Status Records Found INFORMATION SOURCE (unrecogn ized section and content) DATE CREATED AUTHOR [facility] DATE CREATED AUTHOR AUTHOR'S ORGANIZ ATION 02/12/2018 Bethanie keita DATE CREATED AUTHOR AUTHOR'S ORGANIZ ATION 10/25/2024 [facility] DATE CREATED AUTHOR AUTHOR'S ORGANIZ ATION 01/12/[address] [facility] DATE CREATED AUTHOR AUTHOR'S ORGANIZ ATION 03/28/2025 [facility] DATE CREATED AUTHOR AUTHOR'S ORGANIZ ATION 04/19/2025 [facility] Goals (unrecognized section and content) Goals [...] Pr ovider, Attending Provider, Referring Provider Active Hand Stone Polisher Relationship Specialty Start Date End Date Dillan Beach MD PCP - General Family Medicine 11/11/16 Team Status: Inactive Member Role Status Dates Dr. Bernabe Reese MD Primary Care Provider, Referr ing Provider Active Bernabe Angel INSTRUCTIONAL TECHNOLOGY TEACHER, INSTRUCTIONAL TECHNOLOGY TEACHER-C Attending Provider Active Team Status: Inactive Member [...] Care Provider Active Dr. Edward Luevano , DO Emergency Provider Active Dr. Haily Javier [...] Other Provide r Active Dr. Albert Root , ESAU Other Provider Active Dr. Gregorio Mccarthy MD Other Provider Active Team Status: Inactive Member Role Status Dates Dr. Bernabe Reese MD Primary Care Provider Active Dr. Edward Luevano DO Emergency Provider Active Dr. Haily Javier , DO Admit Provider, Other Pro vider Active Dr. Julee Spain , DO Attending Provider Active Dr. Albert Root , ESAU Other Provider Active Dr. Gregorio Mccarthy MD [...] MD Other Provider Active Star t: 2024 Hand Stone Polisher Relationship Specialty Start Date End Date Bernabe Reese MD [address] [place] [id number] PCP - General Family Medicine 10/29/24 Team Status: Inactive Member Role Status Dates Dr. Bernabe Reese MD Primary Care Provider Active Start: 2024 End: October 17, 2024 Dr. Ramon Garcia , ESAU Attending Provider Active Start: 2024 End: October 17, 2024 Dr. Albert Root , ESAU Referring Provider Active Start: 2024 End: October 17, 2024 Team Status: Inactive Member Role Status Dates Dr. Bernabe Reese MD Primary Care Provider Active Start: 2024 End: October 16, 2024 Dr. Logan Gifford , DO Emergency Provider Active Start : 2024 [...] October 16, 2024 Dr. Najma Butler , DO Other Provider Active St art: 2024 [...] Start: 2024 End: October 16, 2024 Dr. Remberto Joshi MD Other Provider Active Start : [...] Start: October 14, 2024 Dr. Logan Gifford , DO Emergency [...] Start: October 15, 2024 Dr. Ozzy Cabrera DO Other Provider [...] Start: October 16, 2024 Dr. Haily Javier DO Other Provider Active Start: October 16, 2024 Dr. Ozzy Cabrera DO [...] 2024 End: November 29, 2024 Dr. Kelli Shea MD Attending Provider Active Start: November 29, 2024 End: November 29, 2024 Dr. Kelli Shea MD Referring Provider Active Start: November 29, [...] October 17, 2024 Dr. Ramon Garcia , ESAU Attending Provider Active Start: 2024 End: October 17, 2024 Dr. Albert Root , ESAU Referring Provider Active Start: 2024 End: October 17, 2024 Team Status: Inactive Member Role/Relationship Status Dates Dr. Bernabe Reese MD Primary Care Provider Active Start: 2024 End: October 16, 2024 Dr. Logan Gifford , DO Emergency Provider Active Start : 2024 [...] Start: 2024 End: October 16, 2024 Dr. Remberto Joshi MD Other Provider Active Start : [...] t: October 15, 2024 Dr. Haily Javier DO Attending Provider Active Start: October 15, 2024 Dr. Haily Javier DO Other Provider Active Start: October 15, 2024 Dr. Ozzy Cabrera DO Other Provider Active S tart: October 15, 2024 Dr. Gregorio Mccarthy MD Other Provider Active Start: October 15, 2024 Dr. Albert Root DPM Other Provider Active Start: October 15, 2024 Team Status: Active Member Role/Relationship Status Dates Dr. Bernabe Reese MD Primary Care Provider Active Start: October 16, 2024 Dr. Logan Gifford DO Emergency Provider Active Start : October 16, 2024 Dr. Chula Antunez MD Admit Provider Active Star t: October 16, 2024 Dr. Chula Antunez MD Other Provider Active Star t: October 16, 2024 Dr. Haily Javier DO Attending Provider Active Start: October 16, 2024 Dr. Haily Javier , DO Other Provider Active Start: October 16, 2024 Dr. Ozzy Cabrera DO [...] 2024 End: November 29, 2024 Dr. Kelli Shea MD Attending Provider Active Start: November 29, 2024 End: November 29, 2024 Dr. Kelli Shea MD Referring Provider Active Start: November 29, [...] December 11, 2024 End: December 17, 2024 Hand Stone Polisher Relationship Specialty Start Date End Date Bernabe Reese MD [address] [facility] [address] [place] [address] PCP - General Family Medicine 11/04/22 Kelli Shea MD [address] [place] [id number] Referring Gerontology 01/16/25 Team Status: Inactive Member Role/Relationship Status Dates [...] October 17, 2024 Dr. Ramon Garcia , ESAU Attending Provider Active Start: 2024 End: October 17, 2024 Dr. Albert Root DPM Referring Provider Active Start: 2024 End: October 17, 2024 Team Status: Inactive Member Role/Relationship Status Dates Dr. Bernabe Reese MD Primary Care Provider Active Start: 2024 End: October 16, 2024 Dr. Logan Gifford , DO Emergency Provider Active Start : 2024 [...] Start: 2024 End: October 16, 2024 Dr. Remberto Joshi MD Other Provider Active Start : [...] October 13, 2024 Dr. Ozzy Cabrera , Attending Provider Active Start: October 13, 2024 [...] Active Start: October 14, 2024 Dr. Ozzy Cabrear , DO Other Provider Active S tart: October 14, 2024 Dr. Albert Root DPM Other Provider Active Start: October 14, 2024 Dr. Gregorio Mccarthy MD Other Provider Active Start: October 14, 2024 Team Status: Active Member Role/Relationship Status Dates Dr. Bernabe Reees MD Primary Care Provider Active Start: October [...] Start: October 16, 2024 Dr. Logan Gifford DO Emergency Provider Active Start : October 16, 2024 Dr. Chlua Antunez MD Admit Provider Active Star t: October 16, 2024 Dr. Chula Antunez MD Other Provider Active Star t: October 16, 2024 Dr. Haily Javier DO Attending Provider Active Start: October 16, 2024 Dr. Haily Javier DO Other Provider Active Start: October 16, 2024 Dr. Ozzy Cabrera DO [...] 2024 End: November 29, 2024 Dr. Kelli Shea MD Attending Provider Active Start: November 29, 2024 End: November 29, 2024 Dr. Kelli Shea MD Referring Provider Active Start: November 29, [...] December 11, 2024 End: December 17, 2024 Team Status: Active Member Role/Relationship Status Dates Dr. Bernabe Reese MD Primary Care Provider Active Start: December 18, 2024 Dr. Kelli LUNA MD Attending Provider Active Start: December 18, 2024 Dr. Kelli LUNA MD Referring Provider Active Start: December 18, 2024 Team Status: Active Member Role/Relationship Status Dates Dr. Bernabe Reese MD Primary Care Provider Active Start: December 18, 2024 Dr. Albert Root DPM Referring Provider Active Start: December 18, 2024 Dr. Canelo Cavazos MD Attending Provider Active Start: December 18, 2024 Dr. Canelo Cavazos MD Other Provider Active Sta rt: December 18, 2024 Team Status: Active Member Role/Relationship Status Dates Dr. Bernabe Reese MD Primary Care Provider Active Start: December 25, 2024 Dr. Albert Root DPM Referring Provider Active Start: December 25, 2024 Dr. Canelo Cavazos MD Attending Provider Active Start: December 25, 2024 Dr. Canelo Cavazos MD Other Provider Active Sta rt: December 25, 2024 Team Status: Active Member Role/Relationship Status Dates Dr. Bernabe Reese MD Primary Care Provider Active Start: January 01, 2025 Dr. Kelli LUNA MD Attending Provider Active Start: January 01, 2025 Team Status: Active Member Role/Relationship Status Dates Dr. Bernabe Reese MD Primary Care Provider Active Start: January 08, 2025 Dr. Kelli LUNA MD Attending Provider Active Start: January 08, 2025 Team Status: Active Member Role/Relationship Status Dates Dr. Bernabe Reese MD Primary Care Provider Active Start: January 15, 2025 Dr. Kelli LUNA MD Attending Provider Active Start: January 15, 2025 Team Status: Inactive Member Role/Relationship Status Dates Dr. Bernabe Reese MD Primary Care Provider Active Start: January 16, 2025 End: January 17, 2025 Dr. Albert Root DPM Referring Provider Active Start: January 16, 2025 End: January 17, 2025 Dr. León Cerda DPM Attending Provider Active Start: January 16, 2025 End: January 17, 2025 Team Status: Active Member Role/Relationship Status Dates [...] 2024 End: November 29, 2024 Dr. Kelli Shea MD Attending Provider Active Start: November 29, 2024 End: November 29, 2024 Dr. Kleli Shea MD Referring Provider Active Start: November 29, [...] December 11, 2024 End: December 17, 2024 Team Status: Active Member Role/Relationship Status Dates Dr. Bernabe Reese MD Primary Care Provider Active Start: December 18, 2024 Dr. Kelli LUNA MD Attending Provider Active Start: December 18, 2024 Dr. Kelli LUNA MD Referring Provider Active Start: December 18, 2024 Team Status: Active Member Role/Relationship Status Dates Dr. Bernabe Reese MD Primary Care Provider Active Start: December 18, 2024 Dr. Albert Root DPM Referring Provider Active Start: December 18, 2024 Dr. Canelo Cavazos MD Attending Provider Active Start: December 18, 2024 Dr. Canelo Cavazos MD Other Provider Active Sta rt: December 18, 2024 Team Status: Active Member Role/Relationship Status Dates Dr. Bernabe Reese MD Primary Care Provider Active Start: December 25, 2024 Dr. Albert Root DPM Referring Provider Active Start: December 25, 2024 Dr. Canelo Cavazos MD Attending Provider Active Start: December 25, 2024 Dr. Canelo Cavazos MD Other Provider Active Sta rt: December 25, 2024 Team Status: Active Member Role/Relationship Status Dates Dr. Bernabe Reese MD Primary Care Provider Active Start: January 01, 2025 Dr. Kelli LUNA MD Attending Provider Active Start: January 01, 2025 Team Status: Active Member Role/Relationship Status Dates Dr. Bernabe Reese MD Primary Care Provider Active Start: January 08, 2025 Dr. Kelli LUNA MD Attending Provider Active Start: January 08, 2025 Dr. Kelli LUNA MD Referring Provider Active Start: January 08, 2025 Team Status: Active Member Role/Relationship Status Dates Dr. Bernabe Reese MD Primary Care Provider Active Start: January 15, 2025 Dr. Kelli LUNA MD Attending Provider Active Start: January 15, 2025 Team Status: Inactive Member Role/Relationship Status Dates Dr. Bernabe Reese MD Primary Care Provider Active Start: January 16, 2025 End: January 17, 2025 Dr. Albert Root DPM Referring Provider Active Start: January 16, 2025 End: January 17, 2025 Dr. León Cerda DPM Attending Provider Active Start: January 16, 2025 End: January 17, 2025 Team Status: Inactive Member Role/Relationship Status Dates Dr. Bernabe Reese MD Primary Care Provider Active Start: February 13, 2025 End: February 17, 2025 Dr. Albert Root DPM Referring Provider Active Start: February 13, 2025 End: February 17, 2025 Dr. León Cerda DPM Attending Provider Active Start: February 13, 2025 End: February 17, 2025 Team Status: Active Member Role/Relationship Status Dates Dr. Bernabe Reese MD Primary care physician Active Team Status: Active Member Role/Relationship Status Dates Dr. Bernabe Reese MD Primary care physician Active Start: November 21, 2024 Dr. Kelli LUNA MD Attending physician Active Start: November 21, 2024 Team Status: Inactive Member Role/Relationship Status Dates Dr. Bernabe Reese MD Primary care physician Active Start: November 29, 2024 End: November 29, 2024 Dr. Kelli Shea MD Attending physician Active Start: November 29, 2024 End: November 29, 2024 Dr. Kelli Shea MD Referring Provider Active Start: November 29, 2024 End: November 29, 2024 Team Status: Active Member Role/Relationship Status Dates Dr. Bernabe Reese MD Primary care physician Active Start: December 10, 2024 Dr. Kelli LUNA MD Attending physician Active Start: December 10, 2024 Team Status: Inactive Member Role/Relationship Status Dates Dr. Bernabe Reese MD Primary care physician Active Start: December 11, 2024 End: December 17, 2024 Dr. Albert Root DPM Referring Provider Active Start: December 11, 2024 End: December 17, 2024 Dr. Canelo Cavazos MD Attending physician Active Start: December 11, 2024 End: December 17, 2024 Team Status: Active Member Role/Relationship Status Dates Dr. Bernabe Reese MD Primary care physician Active Start: December 18, 2024 Dr. Kelli LUNA MD Attending physician Active Start: December 18, 2024 Dr. Kelli LUNA MD Referring Provider Active Start: December 18, 2024 Team Status: Active Member Role/Relationship Status Dates Dr. Bernabe Reese MD Primary care physician Active Start: December 18, 2024 Dr. Albert Root DPM Referring Provider Active Start: December 18, 2024 Dr. Canelo Cavazos MD Attending physician Active Start: December 18, 2024 Dr. Canelo Cavazos MD Nurse Practitioner Active Start: December 18, 2024 Team Status: Active Member Role/Relationship Status Dates Dr. Bernabe Reese MD Primary care physician Active Start: December 25, 2024 Dr. Albert Root DPM Referring Provider Active Start: December 25, 2024 Dr. Canelo Cavazos MD Attending physician Active Start: December 25, 2024 Dr. Canelo Cavazos MD Nurse Practitioner Active Start: December 25, 2024 Team Status: Active Member Role/Relationship Status Dates Dr. Bernabe Reese MD Primary care physician Active Start: January 01, 2025 Dr. Kelli LUNA MD Attending physician Active Start: January 01, 2025 Team Status: Active Member Role/Relationship Status Dates Dr. Bernabe Reese MD Primary care physician Active Start: January 08, 2025 Dr. Kelli LUNA MD Attending physician Active Start: January 08, 2025 Dr. Kelli LUNA MD Referring Provider Active Start: January 08, 2025 Team Status: Active Member Role/Relationship Status Dates Dr. Bernabe Reese MD Primary care physician Active Start: January 15, 2025 Dr. Kelli LUNA MD Attending physician Active Start: January 15, 2025 Team Status: Inactive Member Role/Relationship Status Dates Dr. Bernabe Reese MD Primary care physician Active Start: January 16, 2025 End: January 17, 2025 Dr. Albert Root DPM Referring Provider Active Start: January 16, 2025 End: January 17, 2025 Dr. León Cerda DPM Attending physician Active Start: January 16, 2025 End: January 17, 2025 Team Status: Inactive Member Role/Relationship Status Dates Dr. Bernabe Reese MD Primary care physician Active Start: February 13, 2025 End: February 17, 2025 Dr. Albert Root DPM Referring Provider Active Start: February 13, 2025 End: February 17, 2025 Dr. León Cerda DPM Attending physician Active Start: February 13, 2025 End: February 17, 2025 Team Status: Inactive Member Role/Relationship Status Dates Dr. Bernabe Reese MD Primary care physician Active Start: March 06, 2025 End: March 19, 2025 Dr. Albert Root DPM Referring Provider Active Start: March 06, 2025 End: March 19, 2025 Dr. León Cerda DPM Attending physician Active Start: March 06, 2025 End: March 19, 2025 Team Status: Inactive Member Role/Relationship Status Dates Dr. Bernabe Reese MD Primary care physician Active Start: March 20, 2025 End: March 20, 2025 Dr. Albert Root DPM Referring Provider Active Start: March 20, 2025 End: March 20, 2025 Dr. León Cerda DPM Attending physician Active Start: March 20, 2025 End: March 20, 2025 Team Status: Inactive Member Role/Relationship Status Dates Dr. Bernabe Reese MD Primary care physician Active Start: November 29, 2024 End: November 29, 2024 Dr. Kelli Shea MD Attending physician Active Start: November 29, 2024 End: November 29, 2024 Dr. Kelli Shea MD Referring Provider Active Start: November 29, 2024 End: November 29, 2024 Team Status: Active Member Role/Relationship Status Dates Dr. Bernabe Reese MD Primary care physician Active Start: December 10, 2024 Dr. Kelli LUNA MD Attending physician Active Start: December 10, 2024 Team Status: Inactive Member Role/Relationship Status Dates Dr. Bernabe Reese MD Primary care physician Active Start: December 11, 2024 End: December 17, 2024 Dr. Albert Root DPM Referring Provider Active Start: December 11, 2024 End: December 17, 2024 Dr. Canelo Cavazos MD Attending physician Active Start: December 11, 2024 End: December 17, 2024 Team Status: Inactive Member Role/Relationship Status Dates Dr. Bernabe Reese MD Primary care physician Active Start: December 18, 2024 End: December 18, 2024 Dr. Kelli LUNA MD Attending physician Active Start: December 18, 2024 End: December 18, 2024 Dr. eKlli LUNA MD Referring Provider Active Start: December 18, 2024 End: December 18, 2024 Team Status: Active Member Role/Relationship Status Dates Dr. Bernabe Reese MD Primary care physician Active Start: December 18, 2024 Dr. Albert Root DPM Referring Provider Active Start: December 18, 2024 Dr. Canelo Cavazos MD Attending physician Active Start: December 18, 2024 Dr. Canelo Cavazos MD Nurse Practitioner Active Start: December 18, 2024 Team Status: Active Member Role/Relationship Status Dates Dr. Bernabe Reese MD Primary care physician Active Start: December 25, 2024 Dr. Albert Root DPM Referring Provider Active Start: December 25, 2024 Dr. Canelo Cavazos MD Attending physician Active Start: December 25, 2024 Dr. Canelo Cavazos MD Nurse Practitioner Active Start: December 25, 2024 Team Status: Active Member Role/Relationship Status Dates Dr. Bernabe Reese MD Primary care physician Active Start: January 01, 2025 Dr. Kelli LUNA MD Attending physician Active Start: January 01, 2025 Team Status: Active Member Role/Relationship Status Dates Dr. Bernabe Reese MD Primary care physician Active Start: January 08, 2025 Dr. Kelli LUNA MD Attending physician Active Start: January 08, 2025 Dr. Kelli LUNA MD Referring Provider Active Start: January 08, 2025 Team Status: Active Member Role/Relationship Status Dates Dr. Bernabe Reese MD Primary care physician Active Start: January 15, 2025 Dr. Kelli LUNA MD Attending physician Active Start: January 15, 2025 Team Status: Inactive Member Role/Relationship Status Dates Dr. Bernabe Reese MD Primary care physician Active Start: January 16, 2025 End: January 17, 2025 Dr. Albert Root DPM Referring Provider Active Start: January 16, 2025 End: January 17, 2025 Dr. León Cerda DPM Attending physician Active Start: January 16, 2025 End: January 17, 2025 Team Status: Inactive Member Role/Relationship Status Dates Dr. Bernabe Reese MD Primary care physician Active Start: February 13, 2025 End: February 17, 2025 Dr. Albert Root DPM Referring Provider Active Start: February 13, 2025 End: February 17, 2025 Dr. León Cerda DPM Attending physician Active Start: February 13, 2025 End: February 17, 2025 Team Status: Inactive Member Role/Relationship Status Dates Dr. Bernabe Reese MD Primary care physician Active Start: March 06, 2025 End: March 19, 2025 Dr. Albert Root DPM Referring Provider Active Start: March 06, 2025 End: March 19, 2025 Dr. León Cerda DPM Attending physician Active Start: March 06, 2025 End: March 19, 2025 Team Status: Inactive Member Role/Relationship Status Dates Dr. Bernabe Reese MD Primary care physician Active Start: March 20, 2025 End: March 20, 2025 Dr. Albert Root DPM Referring Provider Active Start: March 20, 2025 End: March 20, 2025 Dr. León Cerda DPM Attending physician Active Start: March 20, 2025 End: March 20, 2025 Team Status: Inactive Member Role/Relationship Status Dates Dr. Bernabe Reese MD Primary care physician Active Start: January 01, 2025 End: January 01, 2025 Dr. Kelli LUNA MD Attending physician Active Start: January 01, 2025 End: January 01, 2025 Team Status: Inactive Member Role/Relationship Status Dates Dr. Bernabe Reese MD Primary care physician Active Start: January 08, 2025 End: January 08, 2025 Dr. Kelli LUNA MD Attending physician Active Start: January 08, 2025 End: January 08, 2025 Dr. Kelli LUNA MD Referring Provider Active Start: January 08, 2025 End: January 08, 2025 Source Comments (unrecognize d section and content) In the event this informatio n is protected by the Federal Confidentiality of Alcohol and Drug Abuse Patient Records regulations: The Federal rules restrict any use of the information to criminally investigate or prosecute any alcohol or drug abuse patient.[facility] event this information is protected by the Federal Confidentiality of Alcohol and Drug Abuse Patient Records regulations: The Federal rules restrict any use of the information to criminally investigate or prosecute any alcohol or drug abuse patient.[facility] Scheduled Active and Recently Administ ered Medications [...] Felicitas Reed RN)[id number] (Stopped - Provider: Aixa Arivzu RN)[id number] (Stopped - Provider: Felicitas Reed RN)[id number] [...] Luis Yang, RN)[id number] (Stopped - Provider: Luis Ynag RN) PRN Medication Order 10/28/2024 10/29/2024 10/30/2024 [...] 50% needed, contact pharmacy or obtain from [facility] ++ glucose (GLUTOSE) 40 % oral [...] at 0825, Until Specified, Who to Notify: Body Worker, Call Body Worker if a.m. Glucose is less than 80 [...] glucose is greater than 200md/dl, then notify Body Worker. And BLOOD GLUCOSE (POC DEVICE) (CANCELED) Routine, [...] 50% needed, contact pharmacy or obtain from [facility] ++ And glucose (GLUTOSE) 40 % [...] at 0825, Until Specified, Who to Notify: Body Worker, For all Blood Glucose LESS THAN 80 mg/dl, notify Body Worker after treatment per Hypoglycemia in Non- Adults [...] BE BASED ON THE PRIMARY CLINICAL RECORDS. [employer] provides no warranty or guarantee of the accuracy or completeness of information in this document.
[2025-05-23 19:00] VITALS: BP 156/72; PULSE 76; RESP 18; O2SAT 95
[2025-05-23 20:32] VITALS: BP 151/104; PULSE 75; RESP 15; TEMP 36.5; O2SAT 95
== END 2025-05-23 20:33 | disposition home or self-care (01) ==
PROVIDERS: Emergency Provider Emergency Medicine; PCP Family Medicine; Visit Provider Emergency Medicine
DX: S80.02XA Contusion of left knee, initial encounter (principal); I48.91 Unspecified atrial fibrillation; E11.42 Type 2 diabetes mellitus with diabetic polyneuropathy; Z79.4 Long term (current) use of insulin; S70.12XA Contusion of left thigh, initial encounter; S70.02XA Contusion of left hip, initial encounter; W01.0XXA Fall on same level from slipping, tripping and stumbling without subsequent striking against object, initial encounter; I10 Essential (primary) hypertension; E78.5 Hyperlipidemia, unspecified; G25.81 Restless legs syndrome; G47.33 Obstructive sleep apnea (adult) (pediatric); Z79.84 Long term (current) use of oral hypoglycemic drugs; Z79.899 Other long term (current) drug therapy; Z87.891 Personal history of nicotine dependence
CPT/HCPCS: 73502; 73564; 99284; A4216